=== PATIENT | female | born 1940 | race Caucasian/White ===

== ENCOUNTER 2019-05-21 13:47 | Emergency (ER) | payer OTHER, SELFPAY ==
--- NOTE | ~2019-05-21 | CT_ITS ---
EXAMINATION: CT brain wo con EXAM DATE: 05/21/2019 15:23 INDICATION: Fall, head injury. Forehead injury. TECHNIQUE: Spiral CT of the head was performed without contrast. Axial, coronal and sagittal images were reviewed. The dose-length product (DLP) for this examination was 605.33 mGy-cm. The exposure w as tailored according to patient size, and iterative reconstruction (ASIR) was used as additional dos e reduction technique. There is no prior study for comparison. FINDINGS: There is no acute intraparenchymal hemorrhage. No evidence of intraparenchymal brain mass lesion. No evidence of acute infarction. Please note that initial head CT has limited sensitivity f or small or acute infarctions. There is mild periventricular and subcortical hypodensity, nonspecific but probably related to small vessel ischemic disease. There is moderate prominence of the sulci a nd ventricles related to cerebral atrophy. There is intracranial carotid arteriosclerosis. There a re no extra-axial collections. There is no mass effect or midline shift. Patient has had bilateral ocular lens surgery. Small right frontal scalp contusion. The visualized sinuses and mastoid air miki ls are well aerated. IMPRESSION: 1. No acute intracranial findings. 2. Chronic age related findings. 3. Small right frontal scalp contusion. Reviewed, dictated and finalized at location A. 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
--- NOTE | ~2019-05-21 | XR_ITS ---
EXAMINATION: XR knee LT 3V EXAM DATE: 05/21/2019 15:27 INDICATION: Fracture. TECHNIQUE: 3 projections of the left knee. There is no prior study for comparison. FINDINGS: There is acute comminuted left distal femoral metaphyseal fracture extending into the knee joint with near complete posterior displacement of the knee with respect to the femoral shaft. Verti jean component appears to extend right between the femoral condyles into the knee joint. Closed, post Mediport fracture. Overlying soft tissue swelling. Joint hemarthrosis. No definite tibial or fibular or patellar fractures. IMPRESSION: Acute displaced comminuted distal left femoral fracture into the joint. Reviewed, dictated and finalized at location A. LEAD IMPRESSION: Acute displaced comminuted distal left femoral fracture into the j oint.
[2019-05-21 13:59] VITALS: BP 138/94; PULSE 84; RESP 18; TEMP 36.3; O2SAT 96
[2019-05-21] MEDS: HYDROMORPHONE HCL 1 MG/ML INJ IV PUSH ×2 (15:05→18:11)
[2019-05-21] MEDS: ONDANSETRON INJ 4 MG/2 ML VIAL IV PUSH (15:05)
[2019-05-21 15:08] VITALS: BP 126/92; PULSE 124; RESP 20; O2SAT 100
--- NOTE | 2019-05-21 16:23 | ED.FALL ---
HPI - Fall General Chief Complaint: Fall <Geovanna Flores PA-C - Last Filed: 05/21/19 16:43> Stated Complaint: fall/knee pain <Geovanna Flores PA-C - Last Filed: 05/21/19 16:43> Time Seen by Provider: 05/21/19 14:45 <Geovanna Flores PA-C - Last Filed: 05/21/19 16:43> Source: patient <DAV Fletcher Last Filed: 05/21/19 16:43> Mode of arrival: EMS <DAV Fletcher Last Filed: 05/21/19 16:43> Limitations: no limitations <Geovanna Flores PA-C - Last Filed: 05/21/19 16:43> History of Present Illness HPI Narrative: This is a 79-year-old female that presents the emergency department via EMS for left knee pain after an injury just prior to arrival. Reports she was walking out into her garage and tripped on the last step. Reports landing on her left knee. Also reports hitting her head on the refrigerator. Reports since she has had increasing pain and swelling in the left knee. Also reports a superficial laceration to the knee. Denies hitting her head, loss of consciousness, other injuries, prodromal symptoms, weakness, or numbness. <Geovanna Flores PA-C - Last Filed: 05/21/19 16:43> Related Data Home Medications: Home Medications Medication Instructions Recorded Confirmed amlodipine 5 mg tablet 5 mg PO DAILY tablet 01/18/19 carvedilol 25 mg tablet 25 mg PO BID tablet 01/18/19 furosemide 20 mg tablet 20 mg PO DAILY tablet 01/18/19 hydrochlorothiazide 25 mg tablet 25 mg PO DAILY tablet 01/18/19 losartan 100 mg tablet 100 mg PO DAILY tablet 01/18/19 lovastatin 10 mg tablet 10 mg PO DAILY tablet 01/18/19 potassium chloride 20 mEq 20 meq PO DAILY tablet 01/18/19 tablet,extended release(part/cryst) warfarin 2 mg tablet 2 mg PO DAILY tablet 01/18/19 cholecalciferol (vitamin D3) 1,000 unit PO DAILY 05/21/19 [Vitamin D3] metformin 1,000 mg PO HS 05/21/19 semaglutide [Ozempic] 0.5 mg SUBCUT WEEKLY 05/21/19 zolpidem 5 mg PO HS PRN 05/21/19 <Geovanna Flores PA-C - Last Filed: 05/21/19 16:43> Allergies/Adverse Reactions: Allergies Allergy/AdvReac Type Severity Reaction Status Date / Time atorvastatin AdvReac Mild Muscle Pain Verified 05/21/19 14:43 <Geovanna Flores PA-C - Last Filed: 05/21/19 16:43> Review of Systems Review of Systems: Narrative: CONSTITUTIONAL: Denies fever EYES: Denies visual changes GASTROINTESTINAL: Denies vomiting MUSCULOSKELETAL: Reports joint pain, and myalgia. NEUROLOGIC: Denies numbness, or weakness. <Geovanna Flores PA-C - Last Filed: 05/21/19 16:43> All systems reviewed & are unremarkable except as noted in HPI and below <Geovanna Flores PA-C - Last Filed: 05/21/19 16:43> [facility] Past Medical History Medical History: Medical History (Updated 05/21/19 @ 16:41 by Geovanna Flores PA-C) Chronic atrial fibrillation Gastro-esophageal reflux disease without esophagitis Generalized anxiety disorder Hypertensive heart disease without heart failure Mixed hyperlipidemia Subclinical hypothyroidism Type 2 diabetes mellitus without complications <Geovanna Flores PA-C - Last Filed: 05/21/19 16:43> Social History Social History: Social History Smoking status: Never smoker Second hand tobacco smoke exposure: No Alcohol intake: current Gender identity (if verbalized by the patient): Female <Geovanna Flores PA-C - Last Filed: 05/21/19 16:43> Exam Narrative: Exam Narrative: GENERAL: Well-appearing, obese, and in mild acute distress due to pain HEAD: Normocephalic, atraumatic. EYES: PERRLA and EOMI. ENT: Nares clear, no rhinorrhea or epistaxis. Mucous membranes moist. Oropharynx without tonsillar hypertrophy exudate or other lesions. Bilateral TMs pearly wilde non-bulging NECK: Supple. No adenopathy or masses. No midline spinal tenderness CHEST: Clear to auscultation. No respiratory distress. No wheezes rales or rhonchi HEART: Regular
[2019-05-21 16:53] VITALS: BP 118/62; PULSE 102; RESP 18; O2SAT 95
[2019-05-21] MEDS: TETANUS,DIPHTHERIA,AC PERTUSSIS ADULT (0.5 ML) BOOSTRIX IM (17:01)
[2019-05-21 17:04] VITALS: BP 119/90; PULSE 94; RESP 16; O2SAT 96
--- NOTE | 2019-05-21 18:24 | PC.NURSE ---
[facility] here to transport patient to [facility].
== END 2019-05-21 18:39 | disposition short-term general hospital (02) ==
LOC: ANHED 16:48
PROVIDERS: Emergency Provider Emergency Medicine; PCP Internal Medicine
DX: S79.192A Other physeal fracture of lower end of left femur, initial encounter for closed fracture (principal); S00.03XA Contusion of scalp, initial encounter; Z23 Encounter for immunization; I48.20 Chronic atrial fibrillation, unspecified; Z79.01 Long term (current) use of anticoagulants; I11.9 Hypertensive heart disease without heart failure; K21.9 Gastro-esophageal reflux disease without esophagitis; E78.2 Mixed hyperlipidemia; F41.1 Generalized anxiety disorder; E11.9 Type 2 diabetes mellitus without complications; Z79.84 Long term (current) use of oral hypoglycemic drugs; W01.198A Fall on same level from slipping, tripping and stumbling with subsequent striking against other object, initial encounter
CPT/HCPCS: 70450; 73562; 90471; 90715; 96374; 96375; 96376; 99285; J1170; J2405

== ENCOUNTER 2019-05-29 10:52 | Emergency (ER) | payer OTHER, SELFPAY ==
[2019-05-29] VITALS (9 sets, daily range): BP systolic 91–133; BP diastolic 65–103; PULSE 111–132; RESP 19–28; TEMP 36.8–36.9; O2SAT 91–99
--- NOTE | ~2019-05-29 | CT_ITS ---
EXAMINATION: CTA chest PE protocol DATE: 05/29/2019 12:15 INDICATION: Chest pain. Shortness of breath. TECHNIQUE: Computed tomography angiography (CTA) of the chest was performed with 100 mL Omnipaque-350 intravenous contrast timed to evaluate the pulmonary arteries. Coronal maximum intensity projection 3D-reconstructions were created by the technologist. Automated exposure control and iterative reconst ruction technique were employed. Exam dose: 834.50 mGy-cm total exam DLP. COMPARISON: None. FINDINGS: There is diagnostic contrast enhancement of the pulmonary arteries. Intraluminal thrombus i s identified to the greatest extent in the right upper, middle and right lower lobes, with mild left lower lobe involvement is well. Cardiomegaly. Coronary artery calcification. No evidence of thoracic aortic aneurysm. Trace pericardial effusion. No pleural effusion. No hilar or mediastinal mass lesion or lymphadenopathy. Calcified pulmonary granulomas are noted, consistent with old pulmonary granulomatous disease. No pul monary infiltrate or consolidation. Mild discoid atelectasis or scarring in the lower lobes. Left renal calculi. Moderate anterior wedge compression fracture deformity of L1. Diffuse osteopenia. Degenerative changes of the thoracic spine. IMPRESSION: Bilateral pulmonary embolism, right greater than left Dr. Nick telephoned the emergency room physician Dr. Fletcher with the report of bilateral pulmonary em bolism on 05/29/2019 at 1303 hours Reviewed, dictated and finalized at Location A. Reviewed, dictated and finalized at location A. IMPRESSION: Bilateral pulmonary embolism, right greater than left Dr. Nick telephoned the emergency room physician Dr. Fletcher with the report of bilateral pulmonary embolism on 05/29/2019 at 1303 hours
--- NOTE | 2019-05-29 11:03 | ECG_ITS ---
Measurements Intervals [place] Rate: 108 P: MS: 0 QRS: 64 QRSD: 112 T: 0 QT: 370 QTc: 498 Interpretive Statements ATRIAL FIBRILLATION WITH RAPID VENTRICULAR RESPONSE LOW QRS VOLTAGE IN PRECORDIAL LEADS INTRAVENTRICULAR CONDUCTION DELAY BORDERLINE ST-T WAVE ABNORMALITY- DIFFUSE LEADS BASELINE ARTIFACT- I, III, AVR, AVL, V1, V3, V5-V6 ABNORMAL ECG Electronically Signed On 05-29-2019 17:31:30 CDT by Kali Webber D.O.
--- NOTE | 2019-05-29 11:11 | ED.SOB ---
HPI - SOB/Dyspnea General Chief Complaint: Chest Pain <Veronica Fletcher MD - Last Filed: 06/01/19 12:06> Stated Complaint: sob/chest pressure <Veronica Feltcher MD - Last Filed: 06/01/19 12:06> Time Seen by Provider: 05/29/19 11:11 <Veronica Fletcher MD - Last Filed: 06/01/19 12:06> Source: patient and family () <Veronica Fletcher MD - Last Filed: 06/01/19 12:06> Mode of arrival: EMS <Veronica Fletcher MD - Last Filed: 06/01/19 12:06> Limitations: no limitations <Veronica Fletcher MD - Last Filed: 06/01/19 12:06> History of Present Illness HPI Narrative: A 79 y/o female presents to the ED, via EMS, with c/o SOB and diffuse chest pressure. Per , pt fractured her left knee 8 days ago and had surgery at [place] on Thursday (4 days ago). Pt was d/c from [place] on oxygen and was transferred to a rehab facility yesterday. Pt is not normally on oxygen and she denies a PMHx of COPD and pneumonia. Pt started to experience SOB and diffuse chest pressure a couple days ago. Pt describes the chest pressure as a heaviness. Pt also states that her ABD feels hard but notes that she had a BM this morning. She denies a cough, fever, rhinorrhea, and a PMHx of A-fib and stents. Pt is on Warfarin for A-fib. <Veronica Fletcher MD - Last Filed: 06/01/19 12:06> Onset (ago): day(s) (couple) <Veronica Fletcher MD - Last Filed: 06/01/19 12:06> Related Data Home Medications: Home Medications Medication Instructions Recorded Confirmed amlodipine 5 mg tablet 5 mg PO DAILY tablet 01/18/19 carvedilol 25 mg tablet 25 mg PO BID tablet 01/18/19 furosemide 20 mg tablet 20 mg PO DAILY tablet 01/18/19 hydrochlorothiazide 25 mg tablet 25 mg PO DAILY tablet 01/18/19 losartan 100 mg tablet 100 mg PO DAILY tablet 01/18/19 lovastatin 10 mg tablet 10 mg PO DAILY tablet 01/18/19 potassium chloride 20 mEq 20 meq PO DAILY tablet 01/18/19 tablet,extended release(part/cryst) warfarin 2 mg tablet 2 mg PO DAILY tablet 01/18/19 cholecalciferol (vitamin D3) 1,000 unit PO DAILY 05/21/19 [Vitamin D3] metformin 1,000 mg PO HS 05/21/19 semaglutide [Ozempic] 0.5 mg SUBCUT WEEKLY 05/21/19 zolpidem 5 mg PO HS PRN 05/21/19 <Veronica Fletcher MD - Last Filed: 06/01/19 12:06> Allergies/Adverse Reactions: Allergies Allergy/AdvReac Type Severity Reaction Status Date / Time MILI Inhibitors Allergy Unknown Verified 05/29/19 11:20 citalopram Allergy Unknown Verified 05/29/19 11:20 lisinopril Allergy Unknown Verified 05/29/19 11:20 atorvastatin AdvReac Mild Muscle Pain Verified 05/21/19 14:43 <Veronica Fletcher MD - Last Filed: 06/01/19 12:06> Review of Systems Review of Systems: All systems reviewed & are unremarkable except as noted in HPI and below <Veronica Fletcher MD - Last Filed: 06/01/19 12:06> Constitutional: Constitutional: Denies fever(s) <Veronica Fletcher MD - Last Filed: 06/01/19 12:06> ENT: Comments: Denies: rhinorrhea <Veronica Fletcher MD - Last Filed: 06/01/19 12:06> Cardiovascular: Comments: Reports: diffuse chest pressure <Veronica Fletcher MD - Last Filed: 06/01/19 12:06> Respiratory: Respiratory: Denies cough and Reports dyspnea <Veronica Fletcher MD - Last Filed: 06/01/19 12:06> [facility] Past Medical History Medical History: Medical History Anxiety Chronic atrial fibrillation Gastro-esophageal reflux disease without esophagitis Generalized anxiety disorder Hx of radiation therapy Hypertensive heart disease without heart failure Mixed hyperlipidemia Subclinical hypothyroidism Type 2 diabetes mellitus without complications Zenkers diverticulum <Veronica Fletcher MD - Last Filed: 06/01/19 12:06> Surgical History Surgical History: Surgical History H/O: hysterectomy History of cholecystectomy History of tonsillectomy <Veronica Fletcher,
[2019-05-29 11:12] LABS: Glucose Point of Care 304 (65-105)
[2019-05-29] MEDS: LACTATED RINGERS 1,000 ML 999 ML IV CONT ×2 (11:24→14:51)
[2019-05-29 11:44] LABS: Alveolar/Arterial O2 Gradient 164.4 mmHg; Base Excess ABG -3.6 mEq/l (+/-2.0); Carboxyhemoglobin 0.3 % THb (0-2.0); Fractional Inspired Oxygen 36 %; HCO3 ABG 19.4 mEq/l (22.0-26.0); Methemoglobin ABG 0.2 %THb (0-1.5); Oxygen Content ABG 11.6 %vol (16.0-22.0); Oxygen Saturation ABG 92.8 % (95.0-100.0); Oxyhemoglobin 90.2 % THb (90.0-100.0); PCO2 ABG 27.8 mmHg (35.0-45.0); PO2 FiO2 Ratio Arterial Blood 1.67 %; Reduced Hemoglobin 9.3 %THb (0-5.0); Total Hemoglobin 9.1 g/dL (12.0-18.0); pH ABG 7.461 (7.350-7.450)
[2019-05-29 11:45] LABS: Device NASAL CANNULA; Modified Allen's Test Pass; Site Drawn RIGHT RADIAL
[2019-05-29 11:56] LABS: Basophils Percent Auto 0.3 % (0.2-1.2); Eosinophils Percent Auto 0.1 % (0-4.4); Hematocrit 26.5 % (37.0-47.0); Hemoglobin 8.1 g/dL (12.0-15.0); Immature Granulocyte Absolute 0.06 K/mm3 (0.00-0.031); Immature Granulocyte Percent A 0.8 % (0-0.5); Lymphocytes Absolute Auto 0.79 K/mm3 (0.9-3.2); Lymphocytes Percent Auto 10.6 % (18.3-44.2); Mean Corpuscular HGB Conc 30.6 g/dl (32-36); Mean Corpuscular Hemoglobin 31.4 pg (26-34); Mean Corpuscular Volume 102.7 fl (80-100); Mean Platelet Volume 10.1 fl (7.4-10.4); Monocytes Absolute Auto 0.4 K/mm3 (0.1-0.6); Monocytes Percent Auto 5.1 % (2.6-8.5); Neutrophils Absolute Auto 6.2 K/mm3 (1.3-6.7); Neutrophils Percent Auto 83.1 % (45.5-73.1); Nucleated Red Blood Cells Absolute Auto 0.1 K/mm3 (0.0-0.012); Nucleated Red Blood Cells Perc 0.9 % (0.0-0.2); Platelet Count Result 231 k/mm3 (150-375); Red Blood Count 2.58 M/mm3 (4.2-5.4); Red Cell Distribution Width 15.6 % (11.5-14.5); White Blood Count 7.4 K/mm3 (4.5-10.0)
[2019-05-29 12:09] LABS: Estimated Glomerular Filt Rate > 60
[2019-05-29 12:09] LABS: Alanine Aminotransferase 47 U/L (4-35); Albumin Level 2.8 g/dL (3.5-5.1); Alkaline Phosphatase 138 U/L (38-126); Aspartate Amino Transferase 93 U/L (14-36); Bilirubin,Total 1.5 mg/dL (0.2-1.3); Blood Urea Nitrogen 23 mg/dL (7-17); Calcium 7.9 mg/dL (8.4-10.2); Carbon Dioxide 22 mmol/L (22-30); Chloride 100 mmol/L (98-107); Estimated Glomerular Filt Rate > 60; Glucose 278 mg/dL (65-105); Magnesium 1.6 mg/dL (1.6-2.3); Potassium 4.9 mmol/L (3.4-5.0); Sodium 132 mmol/L (137-145)
[2019-05-29 12:11] LABS: Lactic Acid Reflex 4.7 mmol/L (0.7-2.1)
[2019-05-29 12:17] LABS: INR 1.4; Prothrombin Time 16.5 Seconds (11.1-14.7)
[2019-05-29 12:18] LABS: Partial Thromboplastin Time 25.1 SECONDS (22.3-36.8)
[2019-05-29 12:22] LABS: NT Pro B Type Natriuretic Pept 5830 PG/ML (5-100); Troponin I 0.036 ng/mL (0.000-0.034)
[2019-05-29] MEDS: HEPARIN SODIUM 1,000 UNITS/ML VIAL 8000 UNITS IV PUSH (13:44)
[2019-05-29] MEDS: HEPARIN SOD/D5W 100 UNITS/ML 25,000 UNITS/250 ML BAG 19 UNITS (13:46)
[2019-05-29 14:38] LABS: Troponin I 0.058 ng/mL (0.000-0.034)
[2019-05-29 14:53] LABS: Reflex Lactic Acid Yes or No Add Lactic
--- NOTE | 2019-05-29 14:56 | PC.NURSE ---
Computer in Pt. room 8 would not scan medications. dock clerk and IT notified. Documented meds manually with RN witness
--- NOTE | 2019-05-29 15:30 | PC.NURSE ---
Caroline from [facility] called for triage information to place Pt. Caroline will call back with a room number when ready.
[2019-05-29] MEDS: SODIUM CHLORIDE 0.9% IV 1,000 ML 999 ML IV CONT (17:06)
--- NOTE | 2019-05-29 19:31 | PC.NURSE ---
assumed care of pt at this time. report from ARMANI Bear
--- NOTE | 2019-05-29 19:34 | PC.NURSE ---
Called [facility] to transport to [facility]..ETA [id number]
[2019-05-29 20:01] LABS: Glucose Point of Care 196 (65-105)
== END 2019-05-29 20:20 | disposition short-term general hospital (02) ==
PROVIDERS: General Practice; Emergency Provider Emergency Medicine; PCP Internal Medicine
DX: T81.718A Complication of other artery following a procedure, not elsewhere classified, initial encounter (principal); I26.99 Other pulmonary embolism without acute cor pulmonale; I48.20 Chronic atrial fibrillation, unspecified; Z79.01 Long term (current) use of anticoagulants; R79.89 Other specified abnormal findings of blood chemistry; E87.2 Acidosis; K21.9 Gastro-esophageal reflux disease without esophagitis; E78.2 Mixed hyperlipidemia; E11.9 Type 2 diabetes mellitus without complications; Z79.84 Long term (current) use of oral hypoglycemic drugs; R94.31 Abnormal electrocardiogram [ECG] [EKG]
CPT/HCPCS: 36415; 36600; 71275; 80053; 82375; 82805; 82948; 83050; 83605; 83735; 83880; 84484; 85025; 85610; 85730; 87040; 93005; 96361; 96365; 96366; 96368; 96375; 96376; 99291; J0131; J1644; J7030; J7120; Q9967

== ENCOUNTER 2019-08-09 12:52 | Outpatient (CLI) | payer OTHER, SELFPAY ==
--- NOTE | ~2019-08-09 | CT_ITS ---
EXAMINATION: CTA chest PE protocol DATE: 08/09/2019 14:58 CDT INDICATION: Pulmonary embolism. Acute cor pulmonale. TECHNIQUE: Computed tomographic angiography (CTA) of the chest was performed with 100 mL Omnipaque-35 0 intravenous contrast. The dose-length product was 503.63 mGy-cm. Maximum intensity projection 3D-re constructions of the aorta and other arteries were constructed by the technologist on a separate work station. Automated exposure control and iterative reconstruction technique were employed. COMPARISON: CT dated 05/29/2019 FINDINGS: Study is technically adequate there is pulmonary embolism involving the lower lobe segmenta l and subsegmental pulmonary arteries bilaterally with significantly decreased thrombus burden compar ed with prior examination. Cardiomegaly. Small pericardial effusion. No significant pleural effusion. The pulmonary arteries are enlarged, consistent with pulmonary hypertension. No thoracic lymphadenop athy. There is a densely calcified granuloma in the right upper lobe measuring 1.2 cm. No focal airsp edwin consolidation. There are nonobstructing left renal stones. There is a 2.1 cm left adrenal mass, c onsistent with adenoma. There is a superior endplate compression fracture of L1, likely chronic. IMPRESSION: 1. Bilateral lower lobe pulmonary embolism with significantly decreased thrombus burden compared with prior examination. 2: Enlarged pulmonary arteries, consistent with pulmonary arterial hypertension. 3: Small pericardial effusion. 4: Cardiomegaly. 5: Nonobstructing left nephrolithiasis. Reviewed, dictated and finalized at location A. IMPRESSION: 1. Bilateral lower lobe pulmonary embolism with significantly decreased thrombu s burden compared with prior examination. 2: Enlarged pulmonary arteries, consistent with pulmonary arterial hypertensio n. 3: Small pericardial effusion. 4: Cardiomegaly. 5: Nonobstructing left nephrolithiasis.
--- NOTE | ~2019-08-09 | US_ITS ---
EXAMINATION: US venous doppler [facility] EXAM DATE: 08/09/2019 18:01 INDICATION: Left leg pain. TECHNIQUE: Multiple grayscale, color flow and Doppler images of the left lower extremity deep venous system were obtained and reviewed. There is no prior study for comparison. FINDINGS: The left common femoral, femoral and profunda veins demonstrate normal color flow, respirat ory variation, augmentation and compressibility. Compressibility, color flow confirmed within the le ft popliteal, posterior tibial, peroneal, and greater saphenous veins. IMPRESSION: 1. No left lower extremity deep venous thrombosis. Reviewed, dictated and finalized at location A.
[2019-08-09 13:27] LABS: Estimated Glomerular Filt Rate > 60
== END 2019-08-09 12:53 | disposition home or self-care (01) ==
PROVIDERS: PCP Internal Medicine; Visit Provider Internal Medicine
DX: I26.99 Other pulmonary embolism without acute cor pulmonale (principal); N20.0 Calculus of kidney; I51.7 Cardiomegaly; I31.3 Pericardial effusion (noninflammatory)
CPT/HCPCS: 36415; 71275; 93971; Q9967

== ENCOUNTER → 2020-09-04 12:30 | Outpatient (CLI) | payer OTHER, SELFPAY ==
--- NOTE | ~2020-09-04 | XR_ITS ---
EXAMINATION: XR ribs LT 2V DATE: 09/04/2020 14:18 INDICATION: Left rib pain. TECHNIQUE: A frontal view of the chest and 3 views of the left ribs were obtained. COMPARISON: Chest CT 08/09/2019 FINDINGS: Calcified pulmonary nodules are consistent with old granulomatous disease. No pleural effus ion or pneumothorax. Cardiomegaly is noted. IMPRESSION: 1. No rib fracture. 2. Cardiomegaly. Reviewed, dictated and finalized at location A.
== END ==
PROVIDERS: PCP Physician Assistant; Visit Provider Physician Assistant
DX: R07.81 Pleurodynia (principal); I51.7 Cardiomegaly
CPT/HCPCS: 71100

== ENCOUNTER → 2020-11-20 14:22 | Outpatient (CLI) | payer OTHER, SELFPAY ==
--- NOTE | ~2020-11-20 | US_ITS ---
US soft tissue head and neck INDICATION: Thyroid nodules TECHNIQUE: Real-time sonographic images of the thyroid gland were obtained. COMPARISON: No prior studies for comparison. FINDINGS: The right thyroid lobe measures 4 x 1.8 x 1.7 cm. The left thyroid lobe measures 4.4 x 2 x 1.9 cm. There are multiple bilateral thyroid nodules. Largest in the right lobe measures 1.4 x 1 x 1 cm. This mass is solid, predominantly hypoechoic, wider than tall, ill-defined with internal calcifi cations, TR 5. The largest dominant mass in the left lobe measures 2.5 x 1.9 x 1.8 cm and is mixed so lid and cystic, isoechoic, wider than tall, smoothly marginated with microcalcifications, TR 4. IMPRESSION: 1. Multinodular goiter. Recommend ultrasound-guided biopsy of dominant bilateral thyroid masses desc ribed above. Reviewed, dictated and finalized at location A. IMPRESSION: 1. Multinodular goiter. Recommend ultrasound-guided biopsy of dominant bilater al thyroid masses described above.
== END ==
PROVIDERS: PCP Physician Assistant; Visit Provider Physician Assistant
DX: E04.2 Nontoxic multinodular goiter (principal)
CPT/HCPCS: 76536

== ENCOUNTER 2021-03-21 12:04 | Outpatient (CLI) | payer OTHER, SELFPAY ==
--- NOTE | ~2021-03-21 | CT_ITS ---
EXAMINATION: CT abdomen pelvis wo con DATE: 03/21/2021 12:52 INDICATION: Nephrolithiasis with flank pain and hematuria TECHNIQUE: Computed tomography (CT) of the abdomen and pelvis was performed without intravenous contr ast. Automated exposure control and iterative reconstruction technique were employed. The dose-length product was 367.56 mGy-cm. COMPARISON: None FINDINGS: Discoid atelectasis in the posterior lingula. Small fat-containing Bochdalek hernia at the right post erior lung base. Mild cardiomegaly. Atherosclerotic coronary artery calcific location. Aortic valve a nd mitral annular calcifications. No pericardial or pleural effusion. The common bile duct is dilated to 11 mm which may be related to prior cholecystectomy with no visualized gallbladder at the gallbla dder fossa. Liver, spleen, pancreas and right adrenal gland are normal. 1.6 cm left adrenal nodule. B ilateral renal cysts, the larger on the right measuring 2.9 cm. Bilateral nephrolithiasis with 1 mm a nd 3 mm stones in the left kidney and 1 mm, 2 mm and 8 mm stones stones at the right kidney. No urete ral stones or hydronephrosis. Bladder is normal. The uterus is not identified and has likely been ashlie gically resected. There is moderate colonic diverticulosis with a sigmoid predominance. There is no adjacent inflammatory change to suggest diverticulitis. No bowel obstruction. The appendix is not vis ualized. No pericecal inflammatory change to suggest acute appendicitis. No free intraperitoneal gas or fluid. No pathologically enlarged abdominal or pelvic lymphadenopathy. There is calcified atherosc lerosis of the aorta and many of the other arteries. Chronic L1 compression fracture. Severe lumbar a nd lower thoracic spondylosis. IMPRESSION: 1. Bilateral nonobstructing nephrolithiasis. Reviewed, dictated and finalized at location B. 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
[2021-03-21 13:32] LABS: Basophils Percent Auto 0.5 % (0.2-1.2); Eosinophils Percent Auto 0.2 % (0-4.4); Hematocrit 36.7 % (37.0-47.0); Hemoglobin 11.7 g/dL (12.0-15.0); Immature Granulocyte Absolute 0.01 K/mm3 (0.00-0.031); Immature Granulocyte Percent A 0.2 % (0-0.5); Lymphocytes Absolute Auto 0.47 K/mm3 (0.9-3.2); Mean Corpuscular HGB Conc 31.9 g/dl (32-36); Mean Corpuscular Hemoglobin 27.5 pg (26-34); Mean Corpuscular Volume 86.4 fl (80-100); Mean Platelet Volume 10.1 fl (7.4-10.4); Monocytes Absolute Auto 0.3 K/mm3 (0.1-0.6); Monocytes Percent Auto 6.8 % (2.6-8.5); Neutrophils Absolute Auto 3.5 K/mm3 (1.3-6.7); Neutrophils Percent Auto 81.3 % (45.5-73.1); Platelet Count Result 272 k/mm3 (150-375); Red Blood Count 4.25 M/mm3 (4.2-5.4); Red Cell Distribution Width 15.9 % (11.5-14.5); White Blood Count 4.3 K/mm3 (4.5-10.0)
[2021-03-21 13:36] LABS: Alanine Aminotransferase 16 U/L (4-35); Albumin Level 4.3 g/dL (3.5-5.1); Alkaline Phosphatase 92 U/L (38-126); Anion Gap 12 mmol/L (8-16); Aspartate Amino Transferase 22 U/L (14-36); Bilirubin,Total 0.5 mg/dL (0.2-1.3); Blood Urea Nitrogen 17 mg/dL (7-17); Calcium 9.8 mg/dL (8.4-10.2); Carbon Dioxide 22 mmol/L (22-30); Chloride 98 mmol/L (98-107); Estimated Glomerular Filt Rate 53; Glucose 178 mg/dL (65-110); Potassium 4.4 mmol/L (3.4-5.0); Sodium 132 mmol/L (137-145)
[2021-03-21 13:39] LABS: Add Urine Microscopic? YES; Appearance Urine Clear (Clear); Bilirubin Urine Negative (Negative); Blood Urine 3+ (Negative); Color Urine Yellow (Yellow); Glucose Urine UA Negative (Negative); Hyaline Casts Urine 15-19 /lpf; Ketones Urine Negative (Negative); Leukocyte Esterase Ur Trace LEU/UL (NEGATIVE); Mucus Urine Rare /lpf; Nitrate Urine Negative (Negative); Protein Urine 2+ mg/dL (Negative); RBC Urine >75 /hpf (0-2); Squamous Epithelial Cell Urine Rare /hpf (Few); Urobilinogen Urine Negative mg/dL (<2.0); WBC Urine 31-50 /hpf (0-3)
== END 2021-03-21 12:05 | disposition home or self-care (01) ==
PROVIDERS: PCP Physician Assistant; Visit Provider Physician Assistant
DX: N30.01 Acute cystitis with hematuria (principal); R10.9 Unspecified abdominal pain; Z87.442 Personal history of urinary calculi; N20.0 Calculus of kidney
CPT/HCPCS: 36415; 74176; 80053; 81001; 85025

== ENCOUNTER 2021-05-31 11:43 | Outpatient (CLI) | payer OTHER, SELFPAY ==
[2021-05-31 12:10] LABS: Basophils Percent Auto 0.2 % (0.2-1.2); Hematocrit 28.4 % (37.0-47.0); Hemoglobin 8.6 g/dL (12.0-15.0); Immature Granulocyte Absolute 0.03 K/mm3 (0.00-0.031); Immature Granulocyte Percent A 0.4 % (0-0.5); Lymphocytes Absolute Auto 1.34 K/mm3 (0.9-3.2); Lymphocytes Percent Auto 16.7 % (18.3-44.2); Mean Corpuscular HGB Conc 30.3 g/dl (32-36); Mean Corpuscular Hemoglobin 26.4 pg (26-34); Mean Corpuscular Volume 87.1 fl (80-100); Mean Platelet Volume 9.6 fl (7.4-10.4); Monocytes Absolute Auto 0.4 K/mm3 (0.1-0.6); Monocytes Percent Auto 5.2 % (2.6-8.5); Neutrophils Absolute Auto 6.2 K/mm3 (1.3-6.7); Neutrophils Percent Auto 77.5 % (45.5-73.1); Platelet Count Result 323 k/mm3 (150-375); Red Blood Count 3.26 M/mm3 (4.2-5.4); Red Cell Distribution Width 17.1 % (11.5-14.5)
[2021-05-31 12:27] LABS: Alanine Aminotransferase 27 U/L (4-35); Albumin Level 3.8 g/dL (3.5-5.1); Alkaline Phosphatase 104 U/L (38-126); Anion Gap 8 mmol/L (8-16); Aspartate Amino Transferase 32 U/L (14-36); Bilirubin,Total 0.5 mg/dL (0.2-1.3); Blood Urea Nitrogen 15 mg/dL (7-17); Calcium 9.2 mg/dL (8.4-10.2); Carbon Dioxide 26 mmol/L (22-30); Chloride 104 mmol/L (98-107); Estimated Glomerular Filt Rate > 60; Glucose 165 mg/dL (65-110); Magnesium 1.6 mg/dL (1.6-2.3); Potassium 3.7 mmol/L (3.4-5.0); Sodium 138 mmol/L (137-145)
== END 2021-05-31 11:44 | disposition home or self-care (01) ==
LOC: ANHLAB 11:46
PROVIDERS: PCP Physician Assistant; Visit Provider Physician Assistant
DX: D50.0 Iron deficiency anemia secondary to blood loss (chronic) (principal); I10 Essential (primary) hypertension; E03.9 Hypothyroidism, unspecified
CPT/HCPCS: 36415; 80053; 83735; 84443; 85025

== ENCOUNTER 2021-06-02 08:19 | Emergency (ER) | payer OTHER, SELFPAY ==
[2021-06-02 08:25] VITALS: BP 183/99; PULSE 93; RESP 17; TEMP 36.6; O2SAT 97
[2021-06-02 08:40] LABS: Basophils Percent Auto 0.3 % (0.2-1.2); Eosinophils Percent Auto 0.3 % (0-4.4); Hematocrit 30.4 % (37.0-47.0); Hemoglobin 9.3 g/dL (12.0-15.0); Immature Granulocyte Absolute 0.02 K/mm3 (0.00-0.031); Immature Granulocyte Percent A 0.3 % (0-0.5); Lymphocytes Absolute Auto 0.98 K/mm3 (0.9-3.2); Lymphocytes Percent Auto 14.4 % (18.3-44.2); Mean Corpuscular HGB Conc 30.6 g/dl (32-36); Mean Corpuscular Hemoglobin 26.4 pg (26-34); Mean Corpuscular Volume 86.4 fl (80-100); Mean Platelet Volume 9.5 fl (7.4-10.4); Monocytes Absolute Auto 0.4 K/mm3 (0.1-0.6); Monocytes Percent Auto 6.2 % (2.6-8.5); Neutrophils Absolute Auto 5.4 K/mm3 (1.3-6.7); Neutrophils Percent Auto 78.5 % (45.5-73.1); Platelet Count Result 384 k/mm3 (150-375); Red Blood Count 3.52 M/mm3 (4.2-5.4); Red Cell Distribution Width 17.1 % (11.5-14.5); White Blood Count 6.8 K/mm3 (4.5-10.0)
[2021-06-02 08:49] LABS: INR 1.3; Prothrombin Time 15.3 Seconds (11.1-14.7)
[2021-06-02 08:54] LABS: Alanine Aminotransferase 23 U/L (4-35); Albumin Level 3.9 g/dL (3.5-5.1); Alkaline Phosphatase 95 U/L (38-126); Anion Gap 10 mmol/L (8-16); Aspartate Amino Transferase 33 U/L (14-36); Bilirubin,Total 0.6 mg/dL (0.2-1.3); Blood Urea Nitrogen 16 mg/dL (7-17); Calcium 8.9 mg/dL (8.4-10.2); Carbon Dioxide 25 mmol/L (22-30); Chloride 101 mmol/L (98-107); Estimated CRCL calculation 86 ml/min; Estimated Glomerular Filt Rate > 60; Glucose 166 mg/dL (65-110); Potassium 3.1 mmol/L (3.4-5.0); Sodium 136 mmol/L (137-145)
--- NOTE | 2021-06-02 09:04 | ED.GENADULT ---
HPI - General Adult General Chief complaint: Recheck/Abnormal Lab/Rx Stated complaint: abnormal blood work Source: patient Mode of arrival: ambulatory Limitations: no limitations History of Present Illness HPI narrative: Patient is 81 years old white female came to the emergency room with her son from home complaining of general weakness for a while, probably got worse after stopping Xanax 5 days ago. Patient denies any fever, chills, nausea, vomiting, abdominal pain, chest pain, shortness of breath, headache or urinary symptoms. History of depression, diabetes, hypertension, hyperlipidemia, hypothyroidism, atrial fibrillation on Eliquis. Status post embolectomy 5 days ago with complete recovery of stroke symptoms at that day. Patient been using Xanax as needed for years. Was told to stop it after having a stroke. Patient did not have Xanax in the last 5 days. Patient lost at least 3 family members over the last few weeks/months, have a to go today Patient did not take her medication or eat her breakfast prior to arrival to the ED today. Patient also reported not taking her regular potassium since had stroke 5 days ago. Related Data Home Medications Medication Instructions Recorded Confirmed carvedilol 25 mg tablet 25 mg PO BID tablet 01/18/19 06/26/20 apixaban 5 mg tablet 5 mg PO BID 06/28/19 06/26/20 furosemide 20 mg tablet 20 mg PO BID tablet 06/28/19 06/26/20 diltiazem HCl 120 mg 120 mg PO .hs cap 12/14/19 06/26/20 capsule,extended release 24 hr rosuvastatin 20 mg tablet 20 mg PO DAILY tablet 12/14/19 06/26/20 losartan 25 mg tablet 50 mg PO DAILY tablet 06/26/20 06/26/20 potassium chloride 20 mEq 20 meq PO BID tablet 06/26/20 06/26/20 tablet,extended release(part/cryst) Allergies Allergy/AdvReac Type Severity Reaction Status Date / Time lisinopril Allergy Severe cough Verified 06/26/20 14:04 MILI Inhibitors AdvReac Severe cough Verified 06/26/20 14:04 atorvastatin AdvReac Mild Muscle Pain Verified 06/26/20 14:04 citalopram AdvReac Mild Unknown Verified 06/26/20 14:04 Review of Systems Review of Systems: CONSTITUTIONAL: Denies fever, chills, or sweats. EYES: Denies visual changes, redness, or discharge. ENT: Denies rhinorrhea, congestion, sore throat, or otalgia. CARDIOVASCULAR: Denies chest pain, palpitations, or edema. RESPIRATORY: Denies cough or dyspnea. GASTROINTESTINAL: Denies abdominal pain, nausea, vomiting, or diarrhea. GENITOURINARY: Denies dysuria or hematuria. SKIN: Denies rash or itching. MUSCULOSKELETAL: Denies back pain, joint pain, or myalgia. NEUROLOGIC: Denies headache, numbness, or weakness. PSYCHIATRIC: Denies anxiety or depression. PMFSH Past Medical History Medical History Anxiety Chronic atrial fibrillation Chronic episodic atrial fibrillation Gastro-esophageal reflux disease without esophagitis Generalized anxiety disorder Hx of radiation therapy Hypertensive heart disease without heart failure Knee fracture Mixed hyperlipidemia Pulmonary embolus Subclinical hypothyroidism Type 2 diabetes mellitus without complications Zenkers diverticulum Surgical History Surgical History H/O: hysterectomy History of cholecystectomy History of tonsillectomy Family History Family History Father Family history of coronary artery disease Family history of cardiovascular disease Mother Family history of coronary artery disease Family history of cardiovascular disease Social History Social History Smoking status: Never smoker Second hand tobacco smoke exposure: No Alcohol intake: current Gender identity (if verbalized by the patient): Female Exam Narrative: General appearance: Well-developed, well-nourished, looks depressed, son at the bedside Skin: Pale Head: Nor
[2021-06-02] MEDS: ALPRAZolam (*CRX) 0.5 MG TABLET 1 MG PO (09:23)
[2021-06-02 09:25] VITALS: BP 162/95; PULSE 82; RESP 21; O2SAT 97
[2021-06-02] MEDS: POTASSIUM CHLORIDE 20 MEQ TABLET 40 MEQ PO (10:34)
[2021-06-02 10:45] VITALS: BP 156/100; PULSE 84; RESP 19; O2SAT 95
== END 2021-06-02 10:48 | disposition home or self-care (01) ==
PROVIDERS: Emergency Provider Emergency Medicine; PCP Physician Assistant
DX: R53.1 Weakness (principal); E87.6 Hypokalemia; F13.230 Sedative, hypnotic or anxiolytic dependence with withdrawal, uncomplicated; I48.20 Chronic atrial fibrillation, unspecified; K21.9 Gastro-esophageal reflux disease without esophagitis; I11.9 Hypertensive heart disease without heart failure; E78.2 Mixed hyperlipidemia; E11.9 Type 2 diabetes mellitus without complications; Z92.3 Personal history of irradiation; F41.1 Generalized anxiety disorder; Z86.711 Personal history of pulmonary embolism; E03.8 Other specified hypothyroidism; Z79.01 Long term (current) use of anticoagulants; Z79.84 Long term (current) use of oral hypoglycemic drugs
CPT/HCPCS: 36415; 80053; 84443; 85025; 85610; 86850; 86900; 86901; 99283; A9270

== ENCOUNTER 2021-06-06 13:47 | Outpatient (CLI) | payer OTHER, SELFPAY ==
--- NOTE | ~2021-06-06 | XR_ITS ---
XR abdomen/kub 1V 06/06/2021 14:11 Indication: Renal stones Procedure: KUB Comparison: No prior studies for comparison. Findings: Bowel gas pattern is nonobstructive. Moderate colonic fecal loading. There are punctate lef t renal stones. There are pelvic phleboliths. There is a small right renal stone. Moderate lumbar spo ndylosis. No acute osseous abnormality. Impression: 1: Bilateral nephrolithiasis. Reviewed, dictated and finalized at location A. Impression: 1: Bilateral nephrolithiasis.
== END 2021-06-06 13:48 | disposition home or self-care (01) ==
PROVIDERS: PCP Physician Assistant; Visit Provider Urology
DX: N20.0 Calculus of kidney (principal)
CPT/HCPCS: 74018

== ENCOUNTER 2022-05-12 11:22 | Emergency (ER) | payer OTHER, SELFPAY ==
--- NOTE | 2022-05-12 11:36 | ED.URI ---
HPI - URI/Sore Throat General Chief Complaint: Upper Respiratory Infection Stated Complaint: congestion Time Seen by Provider: 05/12/22 11:50 Source: patient Mode of arrival: ambulatory Limitations: no limitations History of Present Illness HPI Narrative: Nereyda is an 82-year-old female patient presenting to the clinic today with complaints of cough nasal congestion, postnasal drip, and chest congestion times 2 days. She denies any known fever or chills. States she is having a productive cough and bringing up clear to yellow phlegm. She denies any shortness of breath or chest pain. MD elicited complaint: cough and nasal congestion (Chest congestion) Related Data Home Medications Medication Instructions Recorded Confirmed carvedilol 25 mg tablet 25 mg PO BID 01/18/19 05/12/22 apixaban 5 mg tablet (Eliquis) 5 mg PO BID 06/28/19 05/12/22 furosemide 20 mg tablet 20 mg PO BID 06/28/19 05/12/22 diltiazem HCl 120 mg 120 mg PO .hs 12/14/19 05/12/22 capsule,extended release 24 hr rosuvastatin 20 mg tablet 20 mg PO DAILY 12/14/19 05/12/22 losartan 25 mg tablet 50 mg PO DAILY 06/26/20 05/12/22 calcium carbonate 200 mg calcium 600 mg PO BID 05/12/22 05/12/22 (500 mg) chewable tablet (Antacid (calcium carbonate)) cholecalciferol (vitamin D3) 25 50,000 mcg PO DAILY 05/12/22 05/12/22 mcg (1,000 unit) capsule cranberry extract 200 mg capsule 200 mg PO DAILY 05/12/22 05/12/22 fluoxetine 20 mg capsule 60 mg PO DAILY 05/12/22 05/12/22 glipizide 10 mg tablet 10 mg PO DAILY 05/12/22 05/12/22 spironolactone 25 mg tablet 25 mg PO DAILY 05/12/22 05/12/22 Allergies Allergy/AdvReac Type Severity Reaction Status Date / Time lisinopril Allergy Severe cough Verified 05/12/22 11:41 MILI Inhibitors AdvReac Severe cough Verified 05/12/22 11:41 atorvastatin AdvReac Mild Muscle Pain Verified 05/12/22 11:41 citalopram AdvReac Mild Unknown Verified 05/12/22 11:41 Review of Systems Review of Systems: Pertinent positives per HPI. Patient denies any fever, chills, rash, headache, visual changes, dizziness, cough, shortness of breath, chest pain, palpitations, nausea, vomiting, diarrhea, constipation, abdominal pain, or any urinary issues. [facility] Past Medical History Medical History Anxiety Chronic atrial fibrillation Chronic episodic atrial fibrillation Gastro-esophageal reflux disease without esophagitis Generalized anxiety disorder Hx of radiation therapy Hypertensive heart disease without heart failure Knee fracture Mixed hyperlipidemia Pulmonary embolus Subclinical hypothyroidism Type 2 diabetes mellitus without complications Zenkers diverticulum Surgical History Surgical History H/O: hysterectomy History of cholecystectomy History of tonsillectomy Family History Family History Father Family history of coronary artery disease Family history of cardiovascular disease Mother Family history of coronary artery disease Family history of cardiovascular disease Social History Social History Smoking status: Never smoker Second hand tobacco smoke exposure: No Alcohol intake: current Gender identity (if verbalized by the patient): Female Comments At the time of my signature, I reviewed and agree with the nursing past medical, surgical, social, and family history. There is no relevant family history pertinent to the patient complaint. Exam Narrative: General: Well-developed, well nourished, in no apparent distress Head: Normocephalic, atraumatic Eyes: Pupils equally round and reactive to light bilaterally, EOM intact, sclera and conjunctive clear, no discharge, lids normal Ears: TMs intact and clear, ear canals clear, no drainage, grossly hearing normal. Nose: Nares patent, clear nasal
[2022-05-12 11:47] VITALS: BP 134/64; PULSE 77; RESP 14; TEMP 36.8; O2SAT 96
== END 2022-05-12 11:51 | disposition home or self-care (01) ==
PROVIDERS: Emergency Provider Nurse Practitioner Family; PCP Family Medicine
DX: J40 Bronchitis, not specified as acute or chronic (principal); I11.9 Hypertensive heart disease without heart failure; E11.9 Type 2 diabetes mellitus without complications; E78.2 Mixed hyperlipidemia; I48.20 Chronic atrial fibrillation, unspecified; Z79.01 Long term (current) use of anticoagulants; Z86.711 Personal history of pulmonary embolism
CPT/HCPCS: 99213; G0463

== ENCOUNTER 2022-10-04 19:02 | Emergency (ER) | payer OTHER, SELFPAY ==
[2022-10-04 19:16] VITALS: BP 163/105; PULSE 87; RESP 18; TEMP 36.6; O2SAT 99
--- NOTE | 2022-10-04 19:17 | ED.BACK ---
HPI - Back Pain/Injury General Chief Complaint: Back Pain/Injury Stated Complaint: rt sided back pain Time Seen by Provider: 10/04/22 19:17 Source: patient, RN notes reviewed and old records reviewed Mode of arrival: ambulatory Limitations: no limitations History of Present Illness HPI Narrative: 82-year-old female presents to the [facility] with complaints of right upper back pain since Thursday, 3 days after physical therapy. States states that she has tried taking Tylenol with minimal relief. Has been going to physical therapy for her arthritis in her neck and her right arm. As well as tight muscles in her trapezius. Has been taking her Xanax and took it just prior to arrival. Has a history of high blood pressure and states that she did take her medications. States that she has an appointment with her primary care provider on Denies any chest pain, shortness of breath. No midline tenderness. No headaches or neck pain. Onset (ago): day(s) (3) Related Data Home Medications Medication Instructions Recorded Confirmed carvedilol 25 mg tablet 25 mg PO BID 01/18/19 10/04/22 apixaban 5 mg tablet (Eliquis) 5 mg PO BID 06/28/19 10/04/22 furosemide 20 mg tablet 20 mg PO BID 06/28/19 10/04/22 rosuvastatin 20 mg tablet 20 mg PO DAILY 12/14/19 10/04/22 losartan 25 mg tablet 50 mg PO DAILY 06/26/20 10/04/22 calcium carbonate 200 mg calcium 600 mg PO BID 05/12/22 10/04/22 (500 mg) chewable tablet (Antacid (calcium carbonate)) cholecalciferol (vitamin D3) 25 50,000 mcg PO DAILY 05/12/22 10/04/22 mcg (1,000 unit) capsule cranberry extract 200 mg capsule 200 mg PO DAILY 05/12/22 10/04/22 fluoxetine 20 mg capsule 60 mg PO DAILY 05/12/22 10/04/22 glipizide 10 mg tablet 10 mg PO DAILY 05/12/22 10/04/22 spironolactone 25 mg tablet 25 mg PO DAILY 05/12/22 10/04/22 alprazolam 0.25 mg tablet (Xanax) 0.5 mg PO DAILY PRN anxiety 10/04/22 10/04/22 loratadine 10 mg tablet (Allergy 10 mg PO DAILY 10/04/22 10/04/22 Relief (loratadine)) Allergies Allergy/AdvReac Type Severity Reaction Status Date / Time lisinopril Allergy Severe cough Verified 05/12/22 11:41 amlodipine Allergy Difficulty Verified 10/04/22 19:34 Breathing MILI Inhibitors AdvReac Severe cough Verified 05/12/22 11:41 atorvastatin AdvReac Mild Muscle Pain Verified 05/12/22 11:41 citalopram AdvReac Mild Unknown Verified 05/12/22 11:41 hydrochlorothiazide AdvReac Dizziness Verified 10/04/22 19:34 Review of Systems Review of Systems: All systems reviewed & are unremarkable except as noted in HPI and below Constitutional: Constitutional: Reports no additional constitutional complaints Eyes: Eyes: Reports no additional eye complaints ENT: Reports system reviewed and no additional complaints, except as documented Cardiovascular: Cardiovascular: Reports no additional cardiovascular complaints, Denies chest pain and Denies dyspnea Respiratory: Respiratory: Reports no additional respiratory complaints, Denies chest congestion, Denies cough and Denies dyspnea Gastrointestinal: Gastrointestinal: Reports no additional gastrointestinal complaints, Denies abdominal pain, Denies nausea and Denies vomiting Musculoskeletal: Musculoskeletal: Reports as per HPI Integumentary/Breasts: Skin/Breast: Reports system reviewed and no additional complaints, except as docu Neurologic: Reports system reviewed and no additional complaints, except as documented Psychiatric: Psychiatric: Reports no additional psychiatric complaints Allergic/Immunologic: Allergic/Immunologic: Reports no additional allergic/immunologic complaints PMFSH Past Medical History Medical History Anxiety Chronic atrial fibrillation Chronic episodic atrial fibrillation Gastro-esophageal reflux disease without esophagitis Generalized anxiety disorder Hx of radiation therapy Hypertensive heart disease without heart failure Knee fracture Mixed hyperlip
== END 2022-10-04 19:41 | disposition home or self-care (01) ==
PROVIDERS: Emergency Provider Nurse Practitioner; PCP Family Medicine
DX: S46.811A Strain of other muscles, fascia and tendons at shoulder and upper arm level, right arm, initial encounter (principal); X58.XXXA Exposure to other specified factors, initial encounter; I48.20 Chronic atrial fibrillation, unspecified; K21.9 Gastro-esophageal reflux disease without esophagitis; I11.9 Hypertensive heart disease without heart failure; E78.2 Mixed hyperlipidemia; Z86.711 Personal history of pulmonary embolism; E11.9 Type 2 diabetes mellitus without complications; E03.8 Other specified hypothyroidism; F41.1 Generalized anxiety disorder
CPT/HCPCS: 99213; G0463

== ENCOUNTER → 2022-10-30 10:19 | Outpatient (CLI) | payer OTHER, SELFPAY ==
--- NOTE | ~2022-10-30 | MR_ITS ---
EXAMINATION: MR thoracic spine wo con DATE: 10/30/2022 11:08 INDICATION: Thoracic back pain TECHNIQUE: Magnetic resonance imaging (MRI) of the thoracic spine was performed without intravenous c ontrast. Sagittal localizer T1-weighted FSE of the cervicothoracic spine was obtained. Thoracic spine sequences included sagittal T2-weighted FSE, sagittal T1-weighted SE, Sagittal T2-weighted FS FSE, a nd axial T2-weighted FSE. COMPARISON: None FINDINGS: 18 degrees thoracic dextro scoliosis measured between T5 and T9. Sagittal alignment is normal. Chroni c L1 superior endplate compression fracture with 40% central vertebral body height loss. Disc centere d fibrovascular degenerative endplate changes at T4-T5, T6-T7 and L1-L2. T1 and T2 hyperintense heman gioma at the left side of T3. Marrow signal is otherwise normal. There is severe disc height loss wit h degenerative endplate changes at T4-T5, T6-T7, T7-T8, T8-T9 and L2-L3. There is fusion across a por tion of the anterior T6-T7 disc space. Moderate disc height loss at T3-T4, T5-T6, T10-T11, T11-T12 an d L1-L2. Mild disc height loss at the remaining thoracic levels. There are disc bulges, protrusions a nd a few small extrusions at every level throughout the thoracic spine resulting in multilevel centra l canal stenosis. There are annular fissures/associated at the majority of these levels. The central canal stenosis is most prominent at T4-T5, T6-T7, T7-T8 and T8-T9. There is associated indentation of the ventral surface of the cord at T4-T5 and T6-T7. Although not imaged on the axial imaging there a ppears to be moderate central canal stenosis at L1-L2 and L2-L3 on the sagittal images. There is mult ilevel bilateral thoracic facet osteoarthritis. This contributes to moderate neural foraminal stenosi s on the left at T7-T8 and T8-T9 and on the right at T10-T11. There is mild neural foraminal stenosis at many of the remaining thoracic levels on both the left and right. There is normal spinal cord sig nal. The conus terminates at L1. Paravertebral soft tissues are unremarkable. IMPRESSION: 1. 18 degrees thoracic dextroscoliosis with severe spondylosis. 2. Chronic L1 compression fracture. No acute osseous abnormality. Reviewed, dictated and finalized at location A.
== END ==
PROVIDERS: PCP Internal Medicine Cardiovascular Disease; Visit Provider Family Medicine
DX: M47.814 Spondylosis without myelopathy or radiculopathy, thoracic region (principal); M41.34 Thoracogenic scoliosis, thoracic region; S32.010A Wedge compression fracture of first lumbar vertebra, initial encounter for closed fracture; X58.XXXA Exposure to other specified factors, initial encounter
CPT/HCPCS: 72146

== ENCOUNTER 2023-12-30 14:06 | Observation (INO) | payer OTHER, SELFPAY ==
[2023-12-30] VITALS (12 sets, daily range): BP systolic 91–124; BP diastolic 60–92; PULSE 80–104; RESP 16–20; TEMP 36.3–37; O2SAT 98–100; BMI 30.9
--- NOTE | 2023-12-30 14:15 | ECG_ITS ---
Test Date: 2023-12-30 14:20:40 Measurements Intervals [place] Rate: 86 P: 0 [place]: 0 QRS: 14 QRSD: 101 T: -4 QT: 354 QTc: 425 Interpretive Statements ATRIAL FIBRILLATION INFERIOR MYOCARDIAL INFARCTION , PROBABLY OLD [40+ ms Q WAVE AND/OR ST/T ABNORMALITY IN II/aVF] No previous ECG available for comparison Electronically Signed On 12-30-2023 14:59:03 CDT by Darek Herrera M.D.
--- NOTE | 2023-12-30 14:36 | ED.GENADULT ---
HPI - General Adult General Chief complaint: Recheck/Abnormal Lab/Rx <Chandler Blum APRN - Last Filed: 12/30/23 14:37> Stated complaint: GIB <Chandler Blum APRN - Last Filed: 12/30/23 14:37> Time Seen by Provider: 12/30/23 15:14 <Chandler Blum APRN - Last Filed: 12/30/23 14:37> 83-year-old female presents from [facility] with low hemoglobin. Patient states she has dark tarry stools for the past week or so. Patient is on Eliquis. Patient states she is fatigued. Patient denies abdominal pain or fevers. GENERAL: Lethargic well-nourished, and in no acute distress. HEAD: Normocephalic, atraumatic. EYES: PERRLA and EOMI. ENT: Nares clear, no rhinorrhea or epistaxis. Mucous membranes moist. NECK: Supple. CHEST: Clear to auscultation. No respiratory distress. HEART: Regular rate and rhythm. No murmur heard. Normal peripheral pulses. ABDOMEN: Soft, nontender, nondistended, normal active bowel sounds. EXTREMITIES: Normal range of motion. No edema. SKIN: Warm, dry, no rash. Pale NEURO: No focal deficits. Alert and oriented x3. PSYCH: Normal mood and affect. <Chandler Blum APRN - Last Filed: 12/30/23 14:37> History of Present Illness HPI narrative: Agree with HPI. Patient also recently had a left sided hip surgery where they inserted a rotten in reinforced the femur. She had been getting heparin but is now fully transition back to her oral anticoagulant. She feels profoundly weak and short of breath. No head injury. <Jorge Garnica MD - Last Filed: 12/30/23 18:45> Related Data Home medications: Home Medications Medication Instructions Recorded Confirmed carvedilol 25 mg tablet 25 mg PO BID 01/18/19 12/30/23 apixaban 5 mg tablet (Eliquis) 5 mg PO BID 06/28/19 12/30/23 furosemide 20 mg tablet 20 mg PO BID 06/28/19 12/23/23 rosuvastatin 20 mg tablet 20 mg PO DAILY 12/14/19 12/30/23 losartan 25 mg tablet 50 mg PO DAILY 06/26/20 12/23/23 calcium carbonate (Antacid 600 mg PO BID 05/12/22 12/30/23 (calcium carbonate)) cholecalciferol (vitamin D3) 25 50,000 mcg PO DAILY 05/12/22 12/30/23 mcg (1,000 unit) capsule cranberry extract 200 mg capsule 200 mg PO DAILY 05/12/22 12/23/23 fluoxetine 20 mg capsule 60 mg PO DAILY 05/12/22 12/30/23 glipizide 10 mg tablet 10 mg PO DAILY 05/12/22 12/23/23 spironolactone 25 mg tablet 50 mg PO DAILY 05/12/22 12/30/23 loratadine 10 mg tablet (Allergy 10 mg PO DAILY 10/04/22 12/23/23 Relief (loratadine)) alprazolam 0.5 mg tablet mg BID PRN Anxiety 12/30/23 <Chandler Blum APRN - Last Filed: 12/30/23 14:37> Allergies/adverse reactions: Allergies Allergy/AdvReac Type Severity Reaction Status Date / Time lisinopril Allergy Severe cough Verified 12/30/23 15:19 amlodipine Allergy Difficulty Verified 12/30/23 15:19 Breathing MILI Inhibitors AdvReac Severe cough Verified 12/30/23 15:19 atorvastatin AdvReac Mild Muscle Pain Verified 12/30/23 15:19 citalopram AdvReac Mild Unknown Verified 12/30/23 15:19 hydrochlorothiazide AdvReac Dizziness Verified 12/30/23 15:19 <Chandler Blum APRN - Last Filed: 12/30/23 14:37> Review of Systems Review of Systems: All systems reviewed & are unremarkable except as noted in HPI and below <Jorge Garnica MD - Last Filed: 12/30/23 18:45> Constitutional: Constitutional: Reports fatigue, Denies fever(s) and Reports weakness <Jorge Garnica MD - Last Filed: 12/30/23 18:45> ENT: Reports system reviewed and no additional complaints, except as documented <Jorge Garnica MD - Last Filed: 12/30/23 18:45> Cardiovascular: Cardiovascular: Reports no additional cardiovascular complaints <Jorge Garnica MD - Last Filed: 12/30/23 18:45> Respiratory: Respiratory: Reports no additional respiratory complaints <Jorge Garnica MD - Last Filed: 12/30/23 18:45> Gastrointestinal: Gastrointestinal: Reports no additional gastrointestinal complaints <Jorge Garnica MD - Last Filed: 12/30/23
[2023-12-30 15:01] LABS: INR 1.4; Prothrombin Time 17.5 Seconds (11.1-14.7)
[2023-12-30 15:02] LABS: Alanine Aminotransferase 22 U/L (6-35); Albumin Level 3.5 g/dL (3.5-5.1); Alkaline Phosphatase 141 U/L (38-126); Anion Gap 9 mmol/L (4-12); Aspartate Amino Transferase 24 U/L (14-36); Bilirubin,Total 0.5 mg/dL (0.2-1.3); Blood Urea Nitrogen 37 mg/dL (7-17); Calcium 9.7 mg/dL (8.4-10.2); Carbon Dioxide 22 mmol/L (22-30); Chloride 100 mmol/L (98-107); Estimated Glomerular Filt Rate > 60; Glucose 171 mg/dL (65-110); Partial Thromboplastin Time 22.9 Seconds (22.3-36.8); Potassium 4.8 mmol/L (3.4-5.0); Sodium 131 mmol/L (137-145)
[2023-12-30 15:15] LABS: Basophils Percent Auto 0.3 % (0.2-1.2); Eosinophils Percent Auto 0.1 % (0-4.4); Hematocrit 21.4 % (37.0-47.0); Immature Granulocyte Absolute 0.03 K/mm3 (0.00-0.031); Immature Granulocyte Percent A 0.4 % (0-0.5); Lymphocytes Absolute Auto 1.01 K/mm3 (0.9-3.2); Lymphocytes Percent Auto 14.7 % (18.3-44.2); Mean Corpuscular HGB Conc 30.8 g/dl (32-36); Mean Corpuscular Hemoglobin 33.3 pg (26-34); Mean Corpuscular Volume 108.1 fl (80-100); Monocytes Absolute Auto 0.5 K/mm3 (0.1-0.6); Monocytes Percent Auto 6.5 % (2.6-8.5); Neutrophils Absolute Auto 5.4 K/mm3 (1.3-6.7); Nucleated Red Blood Cells Perc 0.3 % (0.0-0.2); Platelet Count Result 343 k/mm3 (150-375); Red Blood Count 1.98 M/mm3 (4.2-5.4); Red Cell Distribution Width 20.3 % (11.5-14.5); White Blood Count 6.9 K/mm3 (4.5-10.0)
[2023-12-30 15:43] LABS: Hemoglobin 6.6 g/dL (12.0-15.0)
[2023-12-30 15:45] LABS: Hypochromasia 1+; Platelet Estimate Adequate (Adequate); Schistocytes None Seen
[2023-12-30 15:46] LABS: Anisocytosis 3+; Macrocytosis 1+ (NORMAL)
[2023-12-30] MEDS: PANTOPRAZOLE SODIUM IV 40 MG VIAL IV PUSH (15:58)
--- NOTE | 2023-12-30 16:48 | WPDGICN ---
Assessment and Plan Assessment and plan (1) Acute upper GI bleed: Code(s): K92.2 - Gastrointestinal hemorrhage, unspecified Status: Acute (2) Anemia: Qualifiers: Anemia type: other cause Code(s): D64.9 - Anemia, unspecified Status: Acute Plan The patient has melena and severe anemia. This is probably acute on chronic since she is not severely compromised hemodynamically to explain her very low hemoglobin. Most likely source would be an upper GI bleeding, either peptic ulcer vs. erosive gastritis. Patient already started on pantoprazole intravenously twice a day, and transfusion of 2 packs of red blood cells ordered. She will be monitored in IMU and will be kept NPO. We will plan on EGD tomorrow. GI Consult Note Consult date/time: 12/30/23 16:48 Reason for consult: Recent onset of melena HPI: Prema Pearce is a 83 year old female status post recent hip replacement at [facility]. She has a history of atrial fibrillation and has been on Eliquis. Over the past 24 hours he has noticed dark black stools and weakness. At [facility] ER melena was corroborated by rectal examination. There is no history of peptic ulcer disease, liver disease or ingestion of NSAIDs. Review of Systems Review of Systems: All systems reviewed & are unremarkable except as noted in HPI and below PMFSH Past Medical History Medical History (Updated 12/30/23 @ 16:53 by Timothy Hoyt MD) Anxiety Chronic atrial fibrillation Chronic episodic atrial fibrillation Gastro-esophageal reflux disease without esophagitis Generalized anxiety disorder Hx of radiation therapy Hypertensive heart disease without heart failure Knee fracture Mixed hyperlipidemia Pulmonary embolus Subclinical hypothyroidism Type 2 diabetes mellitus without complications Zenkers diverticulum Surgical History Surgical History (Updated 12/30/23 @ 15:43 by Jorge Garnica MD) H/O: hysterectomy History of cholecystectomy History of hip surgery History of tonsillectomy Family History Family History Father Family history of coronary artery disease Family history of cardiovascular disease Mother Family history of coronary artery disease Family history of cardiovascular disease Social History Social History Smoking status: Never smoker Second hand tobacco smoke exposure: No Alcohol intake: current Gender identity (if verbalized by the patient): Female Meds Home Medications and Allergies Home Medications Medication Instructions Recorded Confirmed Type carvedilol 25 mg tablet 25 mg PO BID 01/18/19 12/23/23 History apixaban 5 mg tablet (Eliquis) 5 mg PO BID 06/28/19 12/23/23 History furosemide 20 mg tablet 20 mg PO BID 06/28/19 12/23/23 History rosuvastatin 20 mg tablet 20 mg PO DAILY 12/14/19 12/23/23 History metformin 1,000 mg tablet See Rx Instructions .Route 03/21/20 12/23/23 Rx .COMPLEX #90 tabs levothyroxine 25 mcg tablet 50 mcg PO DAILY #180 tabs 04/27/20 12/23/23 Rx (Synthroid) losartan 25 mg tablet 50 mg PO DAILY 06/26/20 12/23/23 History zolpidem 5 mg tablet 5 mg PO HS PRN insomnia 90 days 06/26/20 12/23/23 Rx #90 tabs calcium carbonate (Antacid 600 mg PO BID 05/12/22 12/23/23 History (calcium carbonate)) cholecalciferol (vitamin D3) 25 50,000 mcg PO DAILY 05/12/22 12/23/23 History mcg (1,000 unit) capsule cranberry extract 200 mg capsule 200 mg PO DAILY 05/12/22 12/23/23 History fluoxetine 20 mg capsule 60 mg PO DAILY 05/12/22 12/23/23 History glipizide 10 mg tablet 10 mg PO DAILY 05/12/22 12/23/23 History prednisone 20 mg tablet 40 mg PO DAILY 5 days #10 tabs 05/12/22 12/23/23 Rx spironolactone 25 mg tablet 25 mg PO DAILY 05/12/22 12/23/23 History lidocaine 5 % topical patch 1 patch topical DAILY #15 ea 10/04/22 12/23/23 Rx (Lidoderm)
--- NOTE | 2023-12-30 17:50 | PM.IMHP ---
H&P: HPI History of Present Illness Date/Time: 12/30/23 17:45 Chief Complaint: Low hemoglobin. Narrative: This is a very pleasant 83-year-old female with history of gastroesophageal reflux disease, Zenker's diverticulum, stroke, atrial fibrillation on chronic anticoagulation, hypertension, dyslipidemia, heart failure with preserved ejection fraction, moderate aortic stenosis, pulmonary embolism, obstructive sleep apnea on CPAP, and type 2 diabetes mellitus who presented to the emergency department via EMS from [facility] for evaluation after she was found to have a low hemoglobin. The patient provides the following history. She is currently at [facility] for rehab following repair of a left femoral fracture done at [place]. She has been doing well and participating in rehab however over the past week or so she has become fatigued and reports having occasional dark, tarry stools which have become more frequent the last couple of days. Labs were drawn today and she was found to be anemic and was sent to the ED. With further questioning she does mention mild abdominal bloating and belching. She has not had epigastric or abdominal pain and her GERD are not worse than usual. She denies syncope, near syncope, chest pain, palpitations, shortness of breath, nausea, and vomiting. No history of peptic ulcers. She is quite anxious about holding apixaban given history of strokes. She mentions that she and her program arranger spoke briefly about possible left atrial appendage closure but not formally. In the ED: Vital signs were stable on arrival. Labs are significant for a hemoglobin of 6.6, hematocrit 21.4%, MCV 108.1, INR 1.4, sodium 131, BUN 37, creatinine 0.70, glucose 171. 2 units packed red blood cells were ordered and she was started on IV pantoprazole. She is being admitted in this setting for further evaluation and GI consultation. Review of Systems Review of Systems: 12 systems were reviewed and are negative except for as per HPI. 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) Subclinical hypothyroidism Type 2 diabetes mellitus without complications Zenkers diverticulum Surgical History Surgical History History of cholecystectomy History of hip surgery History of hysterectomy History of open reduction and internal fixation (ORIF) procedure repair left femur fracture History of tonsillectomy Family History Family History Father Family history of coronary artery disease Family history of cardiovascular disease Mother Family history of coronary artery disease Family history of cardiovascular disease Social History Social History (Updated 12/30/23 @ 22:47 by Mary Alice Freed PA-C) Social History: Surrogate medical decision maker: Homer Culp, son. Code status: Full code. Smoking status: Never smoker Second hand tobacco smoke exposure: No Alcohol intake: never Substance use: never Substance use type: does not use Do You Feel Safe in your Home?: Yes Lack of Transportation: YES Lack of Food: Never True Current Housing: I Have Housing Concerned About Future Housing: No Difficulty Paying Gas/Electric Bills: YES Difficulty Paying for Meds: YES Currently Unemployed: No Education: Grade School Difficulty w/ Childcare or Family Care: No Spiritual care concerns: No Meds Home Medications and Allergies Home Medications Medication Instructions Recorded Confirmed Type carvedilol 25 mg
[2023-12-30 18:36] LABS: Glucose Point of Care 106 mg/dl (65-105)
--- NOTE | 2023-12-30 18:36 | ADMGEN ---
This patient, Prema Pearce, was admitted to IMU Room 206-0 @ 1740 . Patient/family oriented to hospital policies and general routines including ID bracelet, bed and alarms, visiting hours, pain management, procedures, bathroom and other care routines, personal items, smoking policy, room service/diet, and visiting hours. Information on how to activate the Rapid Response Team has been discussed. Patient/Family are encouraged to report perceived risks to care and to ask questions if they do not understand what they are told or what they should do.
[2023-12-30 20:15] LABS: Iron 64 ug/dL (37-170)
[2023-12-30 20:24] LABS: Percent Iron Saturation 15 % (20-50)
[2023-12-30 22:30] LABS: Folic Acid 7.7 ng/mL (2.76->20)
[2023-12-30] MEDS: ALPRAZolam (*CRX) 0.25 MG TABLET PO (23:23)
[2023-12-30] MEDS: carvediloL 25 MG TABLET PO (23:23)
[2023-12-31] VITALS (27 sets, daily range): BP systolic 85–123; BP diastolic 47–76; PULSE 62–108; RESP 12–20; TEMP 35.7–37.1; O2SAT 95–100
[2023-12-31 00:32] LABS: Glucose Point of Care 57 mg/dl (65-105)
[2023-12-31] MEDS: DEXTROSE 50% 25 GM/50 ML SYRINGE IV PUSH (00:41)
[2023-12-31 01:04] LABS: Glucose Point of Care 194 mg/dl (65-105)
[2023-12-31] MEDS: SODIUM CHLORIDE 0.9% IV 250 ML 30 ML IV CONT (04:30)
[2023-12-31 06:30] LABS: Glucose Point of Care 73 mg/dl (65-105)
[2023-12-31] MEDS: TUBING, BLOOD PLUM PUMP TUBING 1 EACH XX (06:32)
[2023-12-31 08:13] LABS: Anion Gap 4 mmol/L (4-12); Blood Urea Nitrogen 22 mg/dL (7-17); Calcium 9.2 mg/dL (8.4-10.2); Carbon Dioxide 26 mmol/L (22-30); Chloride 104 mmol/L (98-107); Estimated CRCL calculation 67 ml/min; Estimated Glomerular Filt Rate > 60; Glucose 71 mg/dL (65-110); Potassium 5.3 mmol/L (3.4-5.0); Sodium 134 mmol/L (137-145)
[2023-12-31] MEDS: FLUoxetine HCL 20 MG CAPSULE PO (08:20)
[2023-12-31] MEDS: PANTOPRAZOLE SODIUM IV 40 MG VIAL IV PUSH ×2 (08:20→21:57)
[2023-12-31] MEDS: carvediloL 25 MG TABLET PO ×2 (08:21→21:55)
[2023-12-31 08:24] LABS: Hematocrit 25.5 % (37.0-47.0); Mean Corpuscular HGB Conc 31.4 g/dl (32-36); Mean Corpuscular Hemoglobin 33.3 pg (26-34); Mean Corpuscular Volume 106.3 fl (80-100); Mean Platelet Volume 8.8 fl (7.4-10.4); Platelet Count Result 293 k/mm3 (150-375); Red Cell Distribution Width 20.3 % (11.5-14.5); White Blood Count 5.7 K/mm3 (4.5-10.0)
[2023-12-31 10:01] LABS: Glucose Point of Care 91 mg/dl (65-105)
--- NOTE | 2023-12-31 10:33 | PC.NURSE ---
Patient to GI Lab for EGD. No acute distress noted. Blood transfusing.
[2023-12-31 10:46] LABS: Glucose Point of Care 80 mg/dl (65-105)
--- NOTE | 2023-12-31 11:08 | WPDANESEPPF ---
Anes - Initial Pre Proc Eval Procedure: Operation Date: 12/31/23 11:30 Proposed Procedures p Esophagogastroduodenoscopy - Timothy Hoyt MD Date/Time: 12/31/23 11:08 Surgeon: Mariah Guevara MD Pre Op Diagnosis: Upper GI Bleed Patient Data Age: 83 Gender: F Height: 1.55 m Weight: 75.6 kg Last Vital Signs Temp 36.9 C 12/31/23 10:30 Pulse 100 12/31/23 10:30 Resp 18 12/31/23 10:30 BP 106/72 12/31/23 10:30 Pulse Ox 100 12/31/23 10:30 O2 Del Method Room Air 12/31/23 09:02 Allergies Allergy/AdvReac Type Severity Reaction Status Date / Time lisinopril Allergy Severe cough Verified 12/31/23 10:49 amlodipine Allergy Difficulty Verified 12/31/23 10:49 Breathing MILI Inhibitors AdvReac Severe cough Verified 12/31/23 10:49 atorvastatin AdvReac Mild Muscle Pain Verified 12/31/23 10:49 citalopram AdvReac Mild Unknown Verified 12/31/23 10:49 hydrochlorothiazide AdvReac Dizziness Verified 12/31/23 10:49 Home Medications Medication Instructions Recorded Confirmed Type carvedilol 25 mg tablet 25 mg PO BID 01/18/19 12/30/23 History apixaban 5 mg tablet (Eliquis) 5 mg PO BID 06/28/19 12/30/23 History rosuvastatin 20 mg tablet 20 mg PO HS 12/14/19 12/30/23 History levothyroxine 25 mcg tablet 50 mcg PO DAILY #180 tabs 04/27/20 12/30/23 Rx (Synthroid) cholecalciferol (vitamin D3) 25 50 mcg PO DAILY 05/12/22 12/30/23 History mcg (1,000 unit) capsule fluoxetine 20 mg capsule 20 mg PO DAILY 05/12/22 12/30/23 History glipizide 10 mg tablet 10 mg PO BID 05/12/22 12/30/23 History spironolactone 25 mg tablet 50 mg PO DAILY 05/12/22 12/30/23 History lidocaine 5 % topical patch 1 patch topical DAILY #15 ea 10/04/22 12/30/23 Rx (Lidoderm) alprazolam 0.25 mg tablet (Xanax) 0.25 mg PO BID PRN anxiety 2 weeks 12/17/23 12/30/23 Rx #30 tabs oxycodone 5 mg tablet 5 mg PO Q4H PRN pain 2 weeks #60 12/17/23 12/30/23 Rx tabs acetaminophen 500 mg tablet 1,000 mg PO Q6H PRN Pain (Scale 12/30/23 12/30/23 History Score 1-3) calcium carbonate (Tums) 200 mg PO Q6H PRN Acid Reflux 12/30/23 12/30/23 History melatonin 5 mg tablet 5 mg PO HS 12/30/23 12/30/23 History metformin 500 mg tablet 500 mg PO BIDWMEAL 12/30/23 12/30/23 History methocarbamol 500 mg tablet 500 mg PO TID 12/30/23 12/30/23 History polyethylene glycol 3350 17 gram 17 g PO DAILY 12/30/23 12/30/23 History oral powder packet (Miralax) sennosides 8.6 mg tablet (senna) 8.6 mg PO DAILY PRN Constipation 12/30/23 12/30/23 History Laboratory Tests 12/30/23 12/30/23 12/30/23 14:41 14:41 14:41 WBC 6.9 K/mm3 (4.5-10.0) RBC 1.98 L M/mm3 (4.2-5.4) Hgb 6.6 L* g/dL (12.0-15.0) Hct 21.4 L % (37.0-47.0) MCV 108.1 H fl (80-100) MCH 33.3 pg (26-34) MCHC 30.8 L g/dl (32-36) RDW 20.3 H % (11.5-14.5) Plt Count 343 k/mm3 (150-375) MPV 9.0 fl (7.4-10.4) Immature Gran % (Auto) 0.4 % (0-0.5) Neut % (Auto) 78.0 H % (45.5-73.1) Lymph % (Auto) 14.7 L % (18.3-44.2) [place] % (Auto) 6.5 % (2.6-8.5) Eos % (Auto) 0.1 % (0-4.4) Baso % (Auto) 0.3 % (0.2-1.2) Lymph # (Auto) 1.01 K/mm3 (0.9-3.2) [place] # (Auto) 0.5 K/mm3 (0.1-0.6) Eos # (Auto) 0.0 K/mm3 (0-0.3) Baso # (Auto) 0.0 K/mm3 (0.0-0.1) Abs Immat Gran (auto) 0.03 K/mm3 (0.00-0.031) Absolute Neuts (auto) 5.4 K/mm3 (1.3-6.7) Absolute Nucleated RBC 0.020 H K/mm3 (0.0-0.012) Nucleated RBC % 0.3 H % (0.0-0.2) Platelet Estimate Adequate (Adequate) Hypochromasia 1+ Anisocytosis 3+ Macrocytosis 1+ (NORMAL) Schistocytes None seen PT 17.5 H Seconds (11.1-14.7) INR 1.4 APTT 22.9 Seconds (22.3-36.8) Sodium 131 L mmol/L
[2023-12-31] MEDS: LACTATED RINGERS 1,000 ML 150 ML IV CONT (11:14)
--- NOTE | 2023-12-31 11:36 | WPDGIPROGNO ---
Progress Note: A&P Assessment and Plan (1) GI bleed: Code(s): K92.2 - Gastrointestinal hemorrhage, unspecified Status: Acute (2) Duodenal ulcer: Code(s): K26.9 - Duodenal ulcer, unspecified as acute or chronic, without hemorrhage or perforation Status: Acute Assessment and Plan: See endoscopy report. There was an clean based duodenal ulcer, with no stigmata of imminent or active bleeding. The patient can be fed normally (regular diet) , and pantoprazole can be switched to 40 mg b.i.d., to continue for 1 month. Biopsies were taken to rule out Helicobacter pylori, and will treat accordingly if positive. If patient continues to be stable from a hemodynamic standpoint, she can be discharged tomorrow and I can follow her up in consult patient in 6-8 weeks. She can resume her anticoagulation in 5-7 days. Subjective Date/time seen: 12/31/23 11:36 Interval history: The patient continued to have a few melena episodes last night. Denies abdominal pain no other symptoms. Exam Const: General: cooperative and healthy appearing Resp: Effort & Inspection: normal respiratory effort and able to speak in complete sentences Auscultation: clear to auscultation bilaterally Cardio: Rate: regular rate Rhythm: regular rhythm GI: Inspection: normal to inspection GI Palp: No No hepatosplenomegaly present Auscultation: normal bowel sounds Rectal Exam: deferred Skin: General skin exam: normal color Psych: Appearance: grossly normal Mental Status: mental status grossly normal Objective Data Vital Signs Vital Signs: Vital Signs - 24 hr 12/30/23 14:10 12/30/23 15:19 12/30/23 15:30 Temperature 97.4 F L Pulse Rate 104 H 96 95 Respiratory Rate 20 16 19 Blood Pressure 111/61 Pulse Oximetry 99 100 Oxygen Delivery 12/30/23 15:32 12/30/23 17:28 12/30/23 18:08 Temperature 98.2 F Pulse Rate 86 87 100 Respiratory Rate 16 18 18 Blood Pressure 124/66 111/92 H 114/65 Pulse Oximetry 99 98 100 Oxygen Delivery 12/30/23 18:00 12/30/23 20:00 12/30/23 20:00 Temperature 98 F Pulse Rate 96 100 Respiratory Rate 16 Blood Pressure 112/60 Pulse Oximetry 100 Oxygen Delivery Room Air 12/30/23 20:00 12/30/23 22:36 12/30/23 23:23 Temperature Pulse Rate 88 95 80 Respiratory Rate 18 Blood Pressure Pulse Oximetry Oxygen Delivery Autopap 12/30/23 23:43 12/30/23 23:51 12/31/23 00:00 Temperature 98.6 F Pulse Rate 95 99 Respiratory Rate 16 Blood Pressure 91/63 L Pulse Oximetry 99 Oxygen Delivery Room Air 12/31/23 03:39 12/31/23 03:58 12/31/23 04:16 Temperature 98 F 98.5 F Pulse Rate 95 92 Respiratory Rate 20 18 Blood Pressure 102/60 100/57 L Pulse Oximetry 97 95 Oxygen Delivery Room Air 12/31/23 04:00 12/31/23 05:16 12/31/23 06:16 Temperature 98.6 F 97.8 F Pulse Rate 88 104 H 83 Respiratory Rate 20 15 Blood Pressure 106/61 112/66 Pulse Oximetry 99 99 Oxygen Delivery 12/31/23 04:00 12/31/23 07:57 12/31/23 07:30 Temperature 98.1 F 98.2 F Pulse Rate 90 71 82 Respiratory Rate 16 18 Blood Pressure 109/62 109/62 Pulse Oximetry 99 99 Oxygen Delivery 12/31/23 08:15 12/31/23 08:21 12/31/23 08:27 Temperature 98.3 F 98.3 F Pulse Rate 62 87 89 Respiratory Rate 16 18 Blood Pressure 104/61 111/52 L Pulse Oximetry 98 98 Oxygen Delivery 12/31/23 08:30 12/31/23 09:02 12/31/23 09:30 Temperature 98.3 F 98.8 F Pulse Rate 88 85 Respiratory Rate 14 16 Blood Pressure 111/52 L 110/55 L Pulse Oximetry 96 97 97 Oxygen Delivery Room Air 12/31/23 08:00 12/31/23 08:00 12/31/23 10:30 Temperature 98.5 F Pulse Rate 108 H 100 Respiratory Rate 18 Blood Pressure 106/72 Pulse Oximetry 100 Oxygen Delivery Room Air 12/31/23 10:00 12/31/23 10:55 12/31/23 11:06 Temperature 96.2 F L 96.7 F L Pulse Rate 99 88 84 Respiratory Rate 16 18 Blood Pressure 120/76 123/66 Pulse Oximetry 99 9
[2023-12-31 12:24] LABS: Glucose Point of Care 84 mg/dl (65-105)
[2023-12-31 12:58] LABS: Glucose Point of Care 86 mg/dl (65-105)
--- NOTE | 2023-12-31 14:16 | PM.IMPN ---
Progress Note: A&P Assessment and Plan (1) GI bleed: Code(s): K92.2 - Gastrointestinal hemorrhage, unspecified Status: Acute Assessment and Plan: EGD shows DU Continue iv protonix tonight Transition to oral in AM Dc back to facility charo Pt on bland diet and off eliquis for 5-7 days (2) Symptomatic anemia: Code(s): D64.9 - Anemia, unspecified Status: Acute Assessment and Plan: hb is 8 rpt charo (3) Chronic anticoagulation: Code(s): Z79.01 - nursing home (current) use of anticoagulants Status: Acute Assessment and Plan: hold eliquis for few days (4) Atrial fibrillation: Code(s): I48.91 - Unspecified atrial fibrillation Status: Acute Assessment and Plan: stable known history of af (5) Heart failure with preserved ejection fraction: Code(s): I50.30 - Unspecified diastolic (congestive) heart failure Status: Acute Assessment and Plan: stable known history of CHF (6) Gastro-esophageal reflux disease without esophagitis: Code(s): K21.9 - Gastro-esophageal reflux disease without esophagitis Status: Acute Assessment and Plan: DC on oral protonix (7) Obstructive sleep apnea on CPAP: Code(s): G47.33 - Obstructive sleep apnea (adult) (pediatric) Status: Acute Assessment and Plan: CPAP by bedside (8) Type 2 diabetes mellitus without complications: Code(s): E11.9 - Type 2 diabetes mellitus without complications Status: Acute Assessment and Plan: accuchecks, SSI (9) Hypothyroidism: Code(s): E03.9 - Hypothyroidism, unspecified Status: Acute Assessment and Plan: Continue home levothyroxine Subjective Date/time seen: 12/31/23 14:16 Interval history: 83-year-old female with history of gastroesophageal reflux disease, Zenker's diverticulum, stroke, atrial fibrillation on chronic anticoagulation, hypertension, dyslipidemia, heart failure with preserved ejection fraction, moderate aortic stenosis, pulmonary embolism, obstructive sleep apnea on CPAP, and type 2 diabetes mellitus who presented to the emergency department via EMS from [facility] for evaluation after she was found to have a low hemoglobin. The patient provides the following history. She is currently at [facility] for rehab following repair of a left femoral fracture done at [place]. She has been doing well and participating in rehab however over the past week or so she has become fatigued and reports having occasional dark, tarry stools which have become more frequent the last couple of days. Labs were drawn today and she was found to be anemic and was sent to the ED. Pt had EGD under GI showing - clean based duodenal ulcer, with no stigmata of imminent or active bleeding. Pt to continue on iv protonix tonight and transition to oral protonix charo and DC back to her facility pt will need to follow with GI MD and continue on oral protonix. pt to hold eliquis for 5-7 days Review of Systems Review of Systems: Long standing GERD and reflux and belching Exam Const: General: cooperative, healthy appearing and overweight; No in distress Nutritional Appearance: overweight Orientation/consciousness: oriented to person HENMT: Head: normal to inspection Resp: Effort & Inspection: no respiratory distress Auscultation: no rhonchi and no wheezes Cardio: Rate: regular rate Rhythm: regular rhythm GI: Inspection: normal to inspection GI Palp: No abdominal tenderness, No Guarding due to palpation present (GI) and No Hepatomegaly present Auscultation: normal bowel sounds Neuro: General: oriented to person Objective Data Vital Signs Vital Signs: Vital Signs - 24 hr 12/30/23 15:19 12/30/23 15:30 12/30/23 15:32 Temperature Pulse Rate 96 95 86 Respiratory Rate 16 19 16 Blood Pressure 124/66 Pulse Oximetry 99 100 99 Oxygen Delivery 12/30/23 17:28 12/30/23 18:08 12/30/23 1
[2023-12-31 15:47] LABS: Glucose Point of Care 196 mg/dl (65-105)
--- NOTE | 2023-12-31 16:02 | PC.NURSE ---
This patient, Prema Pearce, was transferred to [facility] on 12/31/23 at 1551. Personal belongings sent with patient. Report given to Poonam. Appropriate documentation sent with patient.
[2023-12-31] MEDS: HYDROcodone/acetaminophen (*CRX) 5-325 MG TABLET 1 TAB PO ×2 (17:25→21:57)
[2023-12-31 17:33] LABS: Glucose Point of Care 157 mg/dl (65-105)
--- NOTE | 2023-12-31 21:26 | WPDGIPROGNO ---
Progress Note: A&P Assessment and Plan (1) Duodenal ulcer: Code(s): K26.9 - Duodenal ulcer, unspecified as acute or chronic, without hemorrhage or perforation Status: Acute Assessment and Plan: Patient can be discharged tomorrow on regular diet and Protonix 40 mg biD. This should continue for 6 weeks, and then reduce dose to 40 mg qD permanently. We will notify pt if H pylori is (+) to treat her accordingly. Avoid NSAIDS and Aspirin, may resume anticoagulation in 5-7 days. I can see her in the office in 6-8 weeks, please arrange for appt. thank you . (2) GI bleed: Code(s): K92.2 - Gastrointestinal hemorrhage, unspecified Status: Acute Subjective Date/time seen: 12/31/23 21:26 Interval history: Pt doing well after EGD. Objective Data Vital Signs Vital Signs: Vital Signs - 24 hr 12/30/23 22:36 12/30/23 23:23 12/30/23 23:43 Temperature Pulse Rate 95 80 Respiratory Rate 18 Blood Pressure Pulse Oximetry Oxygen Delivery Autopap Room Air 12/30/23 23:51 12/31/23 00:00 12/31/23 03:39 Temperature 98.6 F Pulse Rate 95 99 Respiratory Rate 16 Blood Pressure 91/63 L Pulse Oximetry 99 Oxygen Delivery Room Air 12/31/23 03:58 12/31/23 04:16 12/31/23 04:00 Temperature 98 F 98.5 F Pulse Rate 95 92 88 Respiratory Rate 20 18 Blood Pressure 102/60 100/57 L Pulse Oximetry 97 95 Oxygen Delivery 12/31/23 05:16 12/31/23 06:16 12/31/23 04:00 Temperature 98.6 F 97.8 F Pulse Rate 104 H 83 90 Respiratory Rate 20 15 Blood Pressure 106/61 112/66 Pulse Oximetry 99 99 Oxygen Delivery 12/31/23 07:57 12/31/23 07:30 12/31/23 08:15 Temperature 98.1 F 98.2 F 98.3 F Pulse Rate 71 82 62 Respiratory Rate 16 18 16 Blood Pressure 109/62 109/62 104/61 Pulse Oximetry 99 99 98 Oxygen Delivery 12/31/23 08:21 12/31/23 08:27 12/31/23 08:30 Temperature 98.3 F 98.3 F Pulse Rate 87 89 88 Respiratory Rate 18 14 Blood Pressure 111/52 L 111/52 L Pulse Oximetry 98 96 Oxygen Delivery 12/31/23 09:02 12/31/23 09:30 12/31/23 08:00 Temperature 98.8 F Pulse Rate 85 108 H Respiratory Rate 16 Blood Pressure 110/55 L Pulse Oximetry 97 97 Oxygen Delivery Room Air 12/31/23 08:00 12/31/23 10:30 12/31/23 10:00 Temperature 98.5 F Pulse Rate 100 99 Respiratory Rate 18 Blood Pressure 106/72 Pulse Oximetry 100 Oxygen Delivery Room Air 12/31/23 10:55 12/31/23 11:06 12/31/23 12:05 Temperature 96.2 F L 96.7 F L Pulse Rate 88 84 99 Respiratory Rate 16 18 20 Blood Pressure 120/76 123/66 85/50 L Pulse Oximetry 99 98 98 Oxygen Delivery Room Air Room Air 12/31/23 12:15 12/31/23 12:25 12/31/23 12:45 Temperature Pulse Rate 73 78 Respiratory Rate 20 20 Blood Pressure 91/47 L 116/52 L Pulse Oximetry 97 97 Oxygen Delivery Room Air Room Air Room Air 12/31/23 12:00 12/31/23 14:00 12/31/23 15:52 Temperature 98.5 F 98.1 F Pulse Rate 80 90 95 Respiratory Rate 12 12 Blood Pressure 110/70 92/54 L Pulse Oximetry 97 99 Oxygen Delivery Intake/Output Intake/Output: Intake & Output 12/28/23 12/29/23 12/30/23 12/31/23 23:59 23:59 23:59 23:59 Intake Total 1676 Output Total 1800 Balance -124 Meds/Results Medications: Active Medications Generic Name Dose Route Start Last Admin Trade Name Freq PRN Reason Stop Dose Admin Acetaminophen 650 mg 12/30/23 16:30 Acetaminophen 325 Mg Tablet PO Q4H PRN Mild Pain (1-3) or Fever Hydrocodone Bitart/Acetaminophen 1 tab 12/30/23 16:30 12/31/23 17:25 Hydrocodone/Acetaminophen (*Crx) 5-325 Mg Tablet PO 1 tab Q4H PRN Administration Pain Rated 4-6 Alprazolam 0.25 mg 12/30/23 22:42 12/30/23 23:23 Alprazolam (*Crx) 0.25 Mg Tablet PO 0.25 mg BID PRN Administration anxiety Calcium Carbonate 200 mg 12/30/23 22:42 Calcium Carbonate (Tums) 500 Mg (200 Mg Elemental) PO Q6H PRN Acid Reflux
[2023-12-31] MEDS: ROSUVASTATIN 20 MG TABLET PO (21:56)
[2023-12-31] MEDS: MELATONIN 5 MG TABLET PO (21:56)
[2023-12-31] MEDS: ALPRAZolam (*CRX) 0.25 MG TABLET PO (21:57)
[2024-01-01 00:20] LABS: Glucose Point of Care 112 mg/dl (65-105)
[2024-01-01 05:19] VITALS: BP 102/68; PULSE 82; RESP 18; TEMP 36.1; O2SAT 98
[2024-01-01] MEDS: LEVOTHYROXINE SODIUM 50 MCG TABLET PO (05:52)
[2024-01-01 06:03] LABS: Hematocrit 29.3 % (37.0-47.0); Hemoglobin 8.9 g/dL (12.0-15.0); Mean Corpuscular HGB Conc 30.4 g/dl (32-36); Mean Corpuscular Hemoglobin 29.6 pg (26-34); Mean Corpuscular Volume 97.3 fl (80-100); Mean Platelet Volume 8.7 fl (7.4-10.4); Platelet Count Result 273 k/mm3 (150-375); Red Blood Count 3.01 M/mm3 (4.2-5.4); Red Cell Distribution Width 25.5 % (11.5-14.5); White Blood Count 5.2 K/mm3 (4.5-10.0)
[2024-01-01 06:11] LABS: Anion Gap 5 mmol/L (4-12); Blood Urea Nitrogen 20 mg/dL (7-17); Calcium 8.9 mg/dL (8.4-10.2); Carbon Dioxide 24 mmol/L (22-30); Chloride 104 mmol/L (98-107); Estimated CRCL calculation 59 ml/min; Estimated Glomerular Filt Rate > 60; Glucose 116 mg/dL (65-110); Potassium 4.3 mmol/L (3.4-5.0); Sodium 133 mmol/L (137-145)
[2024-01-01 06:52] LABS: Glucose Point of Care 114 mg/dl (65-105)
[2024-01-01 07:36] VITALS: O2SAT 97
[2024-01-01 09:07] VITALS: PULSE 78
[2024-01-01] MEDS: carvediloL 25 MG TABLET PO (09:07)
[2024-01-01] MEDS: SPIRONOLACTONE 50 MG TABLET PO (09:07)
[2024-01-01] MEDS: FLUoxetine HCL 20 MG CAPSULE PO (09:07)
[2024-01-01] MEDS: PANTOPRAZOLE SODIUM IV 40 MG VIAL IV PUSH (09:08)
--- NOTE | 2024-01-01 11:35 | WPDANESPN ---
Anes - Prog Note Post-Op Date/Time: 01/01/24 11:35 Cardiovascular status: normal Respiratory status: normal Airway patency: baseline Mental status: baseline Post-Op hydration status: normal Vital Signs: Last Vital Signs Temp 36.1 C L 01/01/24 05:19 Pulse 78 01/01/24 09:07 Resp 18 01/01/24 05:19 BP 102/68 01/01/24 05:19 Pulse Ox 97 01/01/24 07:36 O2 Del Method Room Air 01/01/24 08:00 FiO2 21 01/01/24 07:36 Pain Score (VAS): 0 I/O: Intake & Output 12/31/23 01/01/24 01/01/24 23:59 07:59 15:59 Intake Total 490 240 360 Output Total 1200 400 Balance -710 -160 360 Laboratory Tests 01/01/24 05:20 01/01/24 05:20 12/31/23 12/31/23 12/31/23 12:21 12:54 15:36 WBC RBC Hgb Hct MCV MCH MCHC RDW Plt Count MPV Sodium Potassium Chloride Carbon Dioxide Anion Gap BUN Creatinine Estim Creat Clear Calc Estimated GFR Glucose POC Capillary Glucose 84 86 196 H Calcium 12/31/23 01/01/24 01/01/24 17:28 00:16 05:18 WBC RBC Hgb Hct MCV MCH MCHC RDW Plt Count MPV Sodium Potassium Chloride Carbon Dioxide Anion Gap BUN Creatinine Estim Creat Clear Calc Estimated GFR Glucose POC Capillary Glucose 157 H 112 H 114 H Calcium 01/01/24 05:20 WBC 5.2 RBC 3.01 L Hgb 8.9 L Hct 29.3 L MCV 97.3 D MCH 29.6 D MCHC 30.4 L RDW 25.5 H Plt Count 273 MPV 8.7 Sodium 133 L Potassium 4.3 Chloride 104 Carbon Dioxide 24 Anion Gap 5 BUN 20 H Creatinine 0.60 L Estim Creat Clear Calc 59 Estimated GFR > 60 Glucose 116 H POC Capillary Glucose Calcium 8.9 Post-procedural complaints: none Patient Feedback: Patient satisfied with anesthetic care.
[2024-01-01 11:38] LABS: Glucose Point of Care 211 mg/dl (65-105)
--- NOTE | 2024-01-01 11:47 | PM.DS ---
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 Status: Acute (4) Atrial fibrillation: Code(s): I48.91 - Unspecified atrial fibrillation Status: Acute (5) Heart failure with preserved ejection fraction: Code(s): I50.30 - Unspecified diastolic (congestive) heart failure Status: Acute (6) Gastro-esophageal reflux disease without esophagitis: Code(s): K21.9 - Gastro-esophageal reflux disease without esophagitis Status: Acute (7) Obstructive sleep apnea on CPAP: Code(s): G47.33 - Obstructive sleep apnea (adult) (pediatric) Status: Acute (8) Type 2 diabetes mellitus without complications: Code(s): E11.9 - Type 2 diabetes mellitus without complications Status: Acute (9) Hypothyroidism: Code(s): E03.9 - Hypothyroidism, unspecified Status: Acute DS: Summary Hospital Course Hospital Course: This is a very pleasant 83-year-old female with history of gastroesophageal reflux disease, Zenker's diverticulum, stroke, atrial fibrillation on chronic anticoagulation, hypertension, dyslipidemia, heart failure with preserved ejection fraction, moderate aortic stenosis, pulmonary embolism, obstructive sleep apnea on CPAP, and type 2 diabetes mellitus who presented to the emergency department via EMS from [facility] for evaluation after she was found to have a low hemoglobin. She is currently at [facility] for rehab following repair of a left femoral fracture done at [place]. She has been doing well and participating in rehab however over the past week or so she has become fatigued and reports having occasional dark, tarry stools which have become more frequent the last couple of days. Labs were drawn and she was found to be anemic and was sent to the ED. With further questioning she does mention mild abdominal bloating and belching. She has not had epigastric or abdominal pain and her GERD are not worse than usual. She denies syncope, near syncope, chest pain, palpitations, shortness of breath, nausea, and vomiting. No history of peptic ulcers. She is quite anxious about holding apixaban given history of strokes. She mentions that she and her ankle patch molder spoke briefly about possible left atrial appendage closure but not formally. In the ED: Vital signs were stable on arrival. Labs are significant for a hemoglobin of 6.6, hematocrit 21.4%, MCV 108.1, INR 1.4, sodium 131, BUN 37, creatinine 0.70, glucose 171. 2 units packed red blood cells were given and was started on IV Protonix. GI was consulted. Underwent EGD on 12/31/2023. EGD showed acute duodenal ulcer duodenitis and gastritis. Minimal risk of rebleeding. Post transfusion H&H was monitored and remained stable. Protonix will be continued for 6 weeks b.i.d. and subsequently down to daily permanently. Avoid NSAIDs and aspirin. Resume anticoagulation 5-7 days. Follow-up with GI. Time Spent with Patient Time attestation: Total time spent providing and/or coordinating discharge services: 35 minutes Exam Narrative: General: Well-developed elderly female supine in bed in no acute distress. HEENT: PERRL, EOMI. Sclera anicteric. Tacky mucous membranes. Neck: Supple. Respiratory: Lungs are clear to auscultation bilaterally. Cardiovascular: Irregularly irregular rate and rhythm. Systolic murmur best heard at the upper sternal border. Gastrointestinal: Abdomen is soft, nontender, and nondistended with positive bowel sounds. Skin: Warm and dry. Generalized pallor. Extremities: No cyanosis, clubbing, or edema. Left hip incision is healing nicely. Neurological: Al
[2024-01-01] MEDS: INSULIN ASPART (*BKC) 100 UNITS/ML SUB-Q (12:39)
[2024-01-01 16:00] VITALS: BP 112/55; PULSE 72; RESP 16; TEMP 36.7; O2SAT 96
[2024-01-01 16:34] LABS: Glucose Point of Care 143 mg/dl (65-105)
[2024-01-01 16:37] LABS: SARS-CoV-2 RNA PCR Negative (Negative)
[2024-01-01] MEDS: INFLUENZA VACCINE HIGH DOSE (>64) 180 MCG/0.5 ML SYRINGE IM (17:31)
== END 2024-01-01 19:01 ==
LOC: ANHED 15:45 → ANHIMU 17:35 → ANH3MED 01-01 11:52 → ANHIMU 01-04 08:09
PROVIDERS: Internal Medicine Gastroenterology; Physician Assistant; Admitting Provider Family Medicine; Emergency Provider Emergency Medicine; PCP Family Medicine; Visit Provider Internal Medicine
PROC: 0DJ08ZZ Inspection of Upper Intestinal Tract, Via Natural or Artificial Opening Endoscopic (ICD-10-PCS; CPT 43235; principal; 2023-12-31 11:30)
DX: K26.0 Acute duodenal ulcer with hemorrhage (principal); K29.51 Unspecified chronic gastritis with bleeding; K29.81 Duodenitis with bleeding; D64.9 Anemia, unspecified; F41.9 Anxiety disorder, unspecified; I48.20 Chronic atrial fibrillation, unspecified; K22.5 Diverticulum of esophagus, acquired; K21.9 Gastro-esophageal reflux disease without esophagitis; F41.1 Generalized anxiety disorder; I50.30 Unspecified diastolic (congestive) heart failure; I35.0 Nonrheumatic aortic (valve) stenosis; E78.2 Mixed hyperlipidemia; E11.9 Type 2 diabetes mellitus without complications; E66.9 Obesity, unspecified; Z68.33 Body mass index [BMI] 33.0-33.9, adult; E03.8 Other specified hypothyroidism; G47.33 Obstructive sleep apnea (adult) (pediatric); Z99.89 Dependence on other enabling machines and devices; Z86.73 Personal history of transient ischemic attack (TIA), and cerebral infarction without residual deficits; Z11.52 Encounter for screening for COVID-19; Z23 Encounter for immunization; Z86.711 Personal history of pulmonary embolism; Z79.01 Long term (current) use of anticoagulants; Z79.84 Long term (current) use of oral hypoglycemic drugs; Z79.899 Other long term (current) drug therapy
CPT/HCPCS: 43239; 36415; 36430; 80048; 80053; 82607; 82728; 82746; 82948; 83036; 83540; 83550; 83735; 84443; 85025; 85027; 85610; 85730; 86850; 86860; 86870; 86880; 86900; 86901; 86902; 86905; 86922; 86971; 86972; 87635; 88305; 90471; 90662; 93005; 94002; 96374; 96375; 97161; 97166; 99285; A9270; G0008; G0378; J1815; J2003; J2470; J2704; J7050; J7120; P9016

== ENCOUNTER 2024-02-10 22:57 | Inpatient (IN) | payer OTHER, SELFPAY ==
--- NOTE | ~2024-02-10 | XR_ITS ---
EXAMINATION: XR shoulder RT min 2V DATE: 02/11/2024 00:25 INDICATION: Right shoulder pain post fall TECHNIQUE: AP internally and externally rotated, AP oblique externally rotated and transscapular Y vi ews of the right shoulder were obtained. COMPARISON: None FINDINGS: Normal alignment at the right shoulder. No fracture.Mild glenohumeral and acromioclavicular osteoart hritis. Mild mid thoracic dextrocurvature with severe spondylosis. Additional severe cervical spondyl osis. Calcified nodules in the right midlung zone consistent with old granulomatous disease. IMPRESSION: Mild right glenohumeral and acromioclavicular osteoarthritis. No acute osseous abnormality. Reviewed, dictated and finalized at location A. BREAKER
--- NOTE | ~2024-02-10 | XR_ITS ---
EXAMINATION: XR hip RT 2V w AP pelvis DATE: 02/11/2024 00:25 INDICATION: Right hip pain post fall TECHNIQUE: Anteroposterior view of the pelvis and anteroposteriorfracture and frog-leg lateral views of the right hip were obtained. COMPARISON: CT dated 03/21/2021 FINDINGS: Alignment is normal. No acute fracture. Lateral leg screws with femoral neck dynamic compression scre w fixation at the proximal left femur. Mild bilateral hip and sacroiliac osteoarthritis. Severe lumba r spondylosis with anterior fusion at L5-S1 better appreciated on prior CT. Multiple phleboliths in t he pelvis. IMPRESSION: 1. No acute osseous abnormality. Reviewed, dictated and finalized at location A. INE OPERATOR
--- NOTE | ~2024-02-10 | XR_ITS ---
XR chest 1V portable DATE: 02/13/2024 05:25 INDICATION: Congestive heart failure TECHNIQUE: Portable AP chest at 02/13/2024 at 0507 hours COMPARISON: 02/03/2024 CT chest abdomen pelvis 02/11/2024 portable AP chest at 0058 hours FINDINGS: There is enlargement of the cardiac silhouette consistent with cardiomegaly and small peric ardial effusion demonstrated on 02/03/2024 CT chest examination. There is aortic arch calcification. There are scattered focal areas of mild infiltrate and/or atelectasis of the lungs. No pleural effusion or pulmonary vascular congestion or pneumothorax is evident. Prominent diffuse osteopenia. IMPRESSION: Scattered mild areas of infiltrate and/or atelectasis of the lungs Cardiomegaly, small pericardial effusion Aortic atherosclerosis Osteopenia Reviewed, dictated and finalized at location A. ULAR SAWYER HELPER
--- NOTE | ~2024-02-10 | XR_ITS ---
EXAM: [id number] DATE: 02/13/2024 13:29 HISTORY: left knee pain . COMPARISON: None available. FINDINGS: Decreased mineralization. Extensive revision the arthroplasty hardware. No hardware fractu re or abnormal perihilar hardware lucency. No fracture or dislocation. No lytic or blastic lesion. Mariana int spaces and physes are maintained. No erosion or periosteal change. Soft tissues within normal richardson its. IMPRESSION: No acute osseous finding in the left knee. No radiographic evidence of hardware related c omplication. Reviewed, dictated and finalized at location K. WORK CIGAR MACHINE OPERATOR IMPRESSION: No acute osseous finding in the left knee. No radiographic evidence of hardware related complication.
--- NOTE | ~2024-02-10 | CT_ITS ---
EXAMINATION: CT brain wo con DATE: 02/11/2024 00:01 INDICATION: Fall with head injury TECHNIQUE: Computed tomography (CT) of the head was performed without intravenous contrast. Sagittal and coronal reconstructions were performed. The mA was adjusted according to patient size. Iterative reconstruction technique was employed. The dose-length product was 681.00 mGy-cm. COMPARISON: head CT dated 05/21/2019 FINDINGS: No fracture. Unchanged moderate-sized region of left parieto-occipital encephalomalacia consistent wi th chronic infarct. Additional moderate-sized region of encephalomalacia at the insula, anterior righ t temporal lobe and immediately adjacent right frontal lobe consistent with additional chronic infarc t, new since the prior study. No acute intracranial hemorrhage, acute infarction or abnormal extra ax ial fluid collection. There is additional mild to moderate scattered white matter hypoattenuation con sistent with chronic small vessel ischemic disease. Symmetric prominence of the sulci consistent with moderate age-appropriate diffuse cerebral volume loss. Ventricles are normal and symmetric. No mass/ mass effect. Changes of bilateral intraocular lens replacement. The orbits, paranasal sinuses and mas toid air cells are normal. IMPRESSION: 1. No fracture or acute intracranial process. 2. Moderate-sized old infarcts in the left posterior cerebral and right middle cerebral artery vascul ar distributions. 3. Age-related changes including moderate diffuse volume loss and mild to moderate scattered white ma tter hypoattenuation consistent with chronic small vessel ischemic disease. Reviewed, dictated and finalized at location A. NSION SERVICE SPECIALIST IMPRESSION: 1. No fracture or acute intracranial process. 2. 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 3. Age-related changes including moderate diffuse volume loss and mild to moder ate scattered white matter hypoattenuation consistent with chronic small vessel ischemic disease.
--- NOTE | ~2024-02-10 | CT_ITS ---
EXAMINATION: CT cervical spine wo con DATE: 02/11/2024 00:02 INDICATION: Fall with head injury TECHNIQUE: Computed tomography (CT) of the cervical spine was performed without intravenous contrast. Automated exposure control and iterative reconstruction technique were employed. The dose-length pro duct was 534.01 mGy-cm. COMPARISON: None FINDINGS: Straightening of the normal cervical lordosis. There is 2 mm anterolisthesis C2 on C3 and C7 on T1. 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 Vertebral body heights are normal. No acute fr acture. Severe disc height loss with severe associated uncovertebral osteoarthritis at C3-C4 through C6-C7. Moderate disc height loss at C7-T1, T2-T3 and T3-T4 and mild disc height loss at C2-C3 and T1- T2. There is also moderate to severe multilevel bilateral cervical and upper thoracic facet osteoarth ritis. There is multilevel mild central canal stenosis from C3-C4 through C6-C7. Moderate neural fora reggie stenosis on the left at C3-C4 and C6-C7 and bilaterally at C4-C5 used, C5-C6 with mild neural f oraminal stenosis at the remaining cervical levels. Atherosclerotic calcifications at the bilateral c ommon carotid arteries and carotid bulbs. Cervical soft tissues are unremarkable. Smooth septal line thickening at the bilateral upper lungs consistent with mild pulmonary edema. IMPRESSION: 1. Severe cervical spondylosis. No acute osseous abnormality. 2. Mild pulmonary edema in the visualized upper lungs. Reviewed, dictated and finalized at location A. AIMED PROPERTY OFFICER
--- NOTE | ~2024-02-10 | XR_ITS ---
EXAM: XR tibia fibula LT 2V DATE: 02/13/2024 13:29 HISTORY: knee/leg pain . COMPARISON: 05/21/2019. FINDINGS: Near the posterior hardware. Decreased mineralization. No fracture or dislocation. No lyti c or blastic lesion. Degenerative changes in the left ankle. No erosion or periosteal change. Soft ti ssues within normal limits. IMPRESSION: No acute osseous finding in the left tibia/fibula. Reviewed, dictated and finalized at location K. MACHINE OPERATOR
--- NOTE | ~2024-02-10 | XR_ITS ---
EXAMINATION: XR chest 1V portable DATE: 02/11/2024 01:01 INDICATION: Back pain post fall and cough TECHNIQUE: frontal view of the chest was obtained. COMPARISON: Chest radiograph dated 09/04/2020 FINDINGS: Large calcified nodule in the right midlung zone consistent with old granulomatous disease. Diffuse m ild increased interstitial pattern consistent with mild pulmonary edema. No pleural effusion or pneum othorax. Cardiomegaly. Mild thoracic dextrocurvature with severe spondylosis. IMPRESSION: 1. Cardiomegaly with mild pulmonary edema. Reviewed, dictated and finalized at location A. ITY ASSURANCE LAB TECHNICIAN
--- NOTE | ~2024-02-10 | CT_ITS ---
EXAMINATION: CT chest abdomen pelvis wo con DATE: 02/11/2024 01:25 INDICATION: Back, rib and hip pain post fall TECHNIQUE: Computed tomography (CT) of the chest, abdomen, and pelvis was performed without intraveno us contrast. Automated exposure control and iterative reconstruction technique were employed. The dos e-length product was 1215.08 mGy-cm. COMPARISON: None FINDINGS: CHEST CT: Calcified right upper lobe nodules consistent with old granulomatous disease. Scattered smooth septal line thickening throughout both lungs most prominent at the upper lung zones with mild groundglass o pacity in the right upper lung zone consistent with mild pulmonary edema. Mild dependent atelectasis in bilateral lower lobes. No pleural effusion or pneumothorax. Cardiomegaly with biatrial enlargement . Small pericardial effusion. Atherosclerotic coronary artery calcifications. Aortic valve calcificat ion. Coarse calcifications at the bilateral thyroid lobes. Atherosclerotic calcification along the no rmal caliber aorta and great vessels arising from the arch. No pathologically enlarged thoracic lymph adenopathy. Mild thoracic dextrocurvature with severe spondylosis. There is additional severe cervica l spondylosis. No acute fracture. ABDOMEN/PELVIS CT: Chronic dilation of the common bile duct to 12 mm and mild central intrahepatic biliary ductal dilati on which may be related to prior with cholecystectomy with sphincterotomy with no visualized gallblad hasmukh. Spleen, pancreas and right adrenal gland are normal. Unchanged nodular thickening of the left ad renal gland which given the interval stability is most consistent with an adenoma. There are bilatera l renal cysts measuring up to 3.8 cm on the right and 3.3 cm on the left. Bilateral nonobstructing ne phrolithiasis with 4 stones measuring up to 4-5 mm at the left kidney and a 3 mm stone at the lower p ole the right kidney. There is mild colonic diverticulosis with a sigmoid predominance. There is no a djacent inflammatory change to suggest diverticulitis. No bowel obstruction. Bladder is normal. The uterus is not identified and has likely been surgically resected. Numerous phleboliths in the pelvis. No free intraperitoneal gas or fluid. No pathologically enlarged abdominal or pelvic lymphadenopath y. Severe lumbar spondylosis with chronic superior endplate compression fracture at L1 which is uncha nged since prior study. Anterior fusion at L5-S1. Lateral plate and screw and femoral neck dynamic co mpression screw fixation at the proximal femur for old healed intratrochanteric fracture. IMPRESSION: 1. No acute fracture or evident visceral organ injury in the chest, abdomen or pelvis. 2. Congestive heart failure with cardiomegaly and mild pulmonary edema. 3. Bilateral nonobstructing nephrolithiasis. 4. Mild diverticulosis. Reviewed, dictated and finalized at location A. D AUTOMOBILE ADJUSTER
[2024-02-10 22:57] VITALS: BP 144/102; PULSE 109; RESP 15; TEMP 36.8; O2SAT 92
[2024-02-10 23:45] VITALS: BP 143/85; PULSE 105; RESP 15; O2SAT 95
[2024-02-11] VITALS (19 sets, daily range): BP systolic 98–148; BP diastolic 72–105; PULSE 76–133; RESP 14–18; TEMP 36.3–36.9; O2SAT 92–95; BMI 34.9; BMI 35.2
--- NOTE | 2024-02-11 01:04 | ED.GENADULT ---
HPI - General Adult General Chief complaint: Fall Stated complaint: FALL, RT SHOULDER, HIP, & HEAD PAIN. Time Seen by Provider: 02/11/24 00:12 History of Present Illness HPI narrative: patient 84-year-old female presents emergency department with chief complaint of fall patient reports that she was walking with her walker got tangled up and fell the ground the patient reports she struck her head reports that she had her back reports pain in her right shoulder and right hip the patient reports that pain with movement reports that she had no loss of consciousness but does report that she takes an anticoagulant. Patient reports a she has late on the stretcher since the fall she reports that she started to have pain in her upper back and also in her flank Related Data Home Medications Medication Instructions Recorded Confirmed carvedilol 25 mg tablet 25 mg PO BID 01/18/19 02/01/24 apixaban 5 mg tablet (Eliquis) 5 mg PO BID 06/28/19 02/01/24 rosuvastatin 20 mg tablet 20 mg PO HS 12/14/19 02/01/24 cholecalciferol (vitamin D3) 25 50 mcg PO DAILY 05/12/22 02/01/24 mcg (1,000 unit) capsule fluoxetine 20 mg capsule 20 mg PO DAILY 05/12/22 02/01/24 glipizide 10 mg tablet 10 mg PO BID 05/12/22 02/01/24 spironolactone 25 mg tablet 50 mg PO DAILY 05/12/22 02/01/24 acetaminophen 500 mg tablet 1,000 mg PO Q6H PRN Pain (Scale 12/30/23 02/01/24 Score 1-3) calcium carbonate (Tums) 200 mg PO Q6H PRN Acid Reflux 12/30/23 02/01/24 melatonin 5 mg tablet 5 mg PO HS 12/30/23 02/01/24 metformin 500 mg tablet 500 mg PO BIDWMEAL 12/30/23 02/01/24 methocarbamol 500 mg tablet 500 mg PO TID 12/30/23 02/01/24 polyethylene glycol 3350 17 gram 17 g PO DAILY 12/30/23 02/01/24 oral powder packet (Miralax) sennosides 8.6 mg tablet (senna) 8.6 mg PO DAILY PRN Constipation 12/30/23 02/01/24 Allergies Allergy/AdvReac Type Severity Reaction Status Date / Time lisinopril Allergy Severe cough Verified 02/01/24 15:43 amlodipine Allergy Difficulty Verified 02/01/24 15:43 Breathing MILI Inhibitors AdvReac Severe cough Verified 02/01/24 15:43 atorvastatin AdvReac Mild Muscle Pain Verified 02/01/24 15:43 citalopram AdvReac Mild Unknown Verified 02/01/24 15:43 hydrochlorothiazide AdvReac Dizziness Verified 02/01/24 15:43 Review of Systems Review of Systems: A 10 system review of systems was completed on the patient and is negative except for what is stated in the HPI. Nursing and ancillary documentation was reviewed. 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) Subclinical hypothyroidism Type 2 diabetes mellitus without complications Zenkers diverticulum Surgical History Surgical History History of cholecystectomy History of hip surgery History of hysterectomy History of open reduction and internal fixation (ORIF) procedure repair left femur fracture History of tonsillectomy Family History Family History Father Family history of coronary artery disease Family history of cardiovascular disease Mother Family history of coronary artery disease Family history of cardiovascular disease Social History Social History Social History: Surrogate medical decision maker: Homer Culp, son. Code status: Full code. Smoking status: Never smoker Second hand tobacco smoke exposure: No Alcohol intake: never Substance use: never Substance use type: does not use Do You Feel Safe in your Home?: Yes Lack of Transportation: YES Lack of Food: Never True Current Housing: I Have Housing Concerned About Future Housing: No Difficulty Paying Gas/Electric Bills: YES Difficulty Paying for Meds: YES Currently Unemployed: No Education: Grade School Difficulty w/ Childcare or Family Care: No Spiritual care concerns: No Exam Narrative: GENERAL: Well-appearing, well-nourished, and in no acute distress. HEAD: Normocephalic, atraumatic. EYES: PERRLA and EOMI. ENT: Nares clear, no rhinorrhea or epistaxis. Mucous membranes moist. NECK: Supple. CHEST: Clear to auscultation. No respiratory distress. HEART: Regular rate and rhythm. No murmur heard. Normal peripheral pulses. ABDOMEN: Soft, nontender, nondistended, normal active bowel sounds. EXTREMITIES: Normal range of motion. No edema. SKIN: Warm, dry, no rash. NEURO: No focal deficits. Alert and oriented x3. PSYCH: Normal mood and affect. Course Vital Signs Vital signs: Vital Signs Temperature 36.8 C 02/10/24 22:57 Pulse Rate 109 H 02/10/24 22:57 Respiratory Rate 15 02/10/24 22:57 Blood Pressure 144/102 H 02/10/24 22:57 Pulse Oximetry 92 02/10/24 22:57 Oxygen Delivery Room Air 02/10/24 22:57 Temperature 36.8 C 02/10/24 22:57 Pulse Rate 100 02/11/24 06:02 Respiratory Rate 16 02/11/24 06:02 Blood Pressure 137/87 02/11/24 06:02 Pulse Oximetry 95 02/11/24 06:02 Oxygen Delivery Room Air 02/10/24 22:57 Medical Decision Making [facility] Narrative Medical decision making narrative: differential diagnosis includes head injury, cervical spine fracture, chest abdomen pelvis injury, patient is on anticoagulants, plain film x-rays right shoulder and right hip were obtained showed no evidence of fracture. CT scan of the head C-spine and chest abdomen pelvis were obtained showed no acute abnormality the patient was having difficulty with ambulation due to pain. The scan showed no evidence of fracture but given the patient's pain the patient did have increase in heart rate and went into rapid ventricular response the patient was given IV metoprolol which has improved the heart rate labs were ordered and her magnesium was found to be 1.2. Magnesium was replaced with 4 g of IV magnesium the case was discussed with the hospitalist for admission for observation Vital Signs Vital Signs: Vital Signs Temperature 36.8 C 02/10/24 22:57 Pulse Rate 109 H 02/10/24 22:57 Respiratory Rate 15 02/10/24 22:57 Blood Pressure 144/102 H 02/10/24 22:57 Pulse Oximetry 92 02/10/24 22:57 Oxygen Delivery Room Air 02/10/24 22:57 Temperature 36.8 C 02/10/24 22:57 Pulse Rate 100 02/11/24 06:02 Respiratory Rate 16 02/11/24 06:02 Blood Pressure 137/87 02/11/24 06:02 Pulse Oximetry 95 02/11/24 06:02 Oxygen Delivery Room Air 02/10/24 22:57 Lab Data 02/11/24 04:27 02/11/24 04:27 Labs: Lab Results 02/11/24 02/11/24 Range/Units 04:27 04:48 WBC 7.5 (4.5-10.0) K/mm3 RBC 3.35 L (4.2-5.4) M/mm3 Hgb 9.8 L (12.0-15.0) g/dL Hct 31.5 L (37.0-47.0) % MCV 94.0 (80-100) fl MCH 29.3 (26-34) pg MCHC 31.1 L (32-36) g/dl RDW 17.6 H (11.5-14.5) % Plt Count 257 (150-375) k/mm3 MPV 9.8 (7.4-10.4) fl Immature Gran % (Auto) 0.5 (0-0.5) % Neut % (Auto) 72.0 (45.5-73.1) % Lymph % (Auto) 17.0 L (18.3-44.2) % Adams % (Auto) 9.0 H (2.6-8.5) % Eos % (Auto) 1.2 (0-4.4) % Baso % (Auto) 0.3 (0.2-1.2) % Lymph # (Auto) 1.28 (0.9-3.2) K/mm3 Adams # (Auto) 0.7 H (0.1-0.6) K/mm3 Eos # (Auto) 0.1 (0-0.3) K/mm3 Baso # (Auto) 0.0 (0.0-0.1) K/mm3 Abs Immat Gran (auto) 0.04 H (0.00-0.031) K/mm3 Absolute Neuts (auto) 5.4 (1.3-6.7) K/mm3 Absolute Nucleated RBC 0.000 (0.0-0.012) K/mm3 Nucleated RBC % 0.0 (0.0-0.2) % Sodium 137 (137-145) mmol/L Potassium 4.2 (3.4-5.0) mmol/L Chloride 100 (98-107) mmol/L Carbon Dioxide 26 (22-30) mmol/L Anion Gap 11 (4-12) mmol/L BUN 22 H (7-17) mg/dL Creatinine 0.60 L (0.7-1.0) mg/dL Estim Creat Clear Calc 62 ml/min Estimated GFR > 60 (59 - ) Glucose 149 H (65-110) mg/dL Lactic Acid 1.4 (0.7-2.0) mmol/L Calcium 9.8 (8.4-10.2) mg/dL Magnesium 1.2 L (1.6-2.3) mg/dL Total Bilirubin 0.7 (0.2-1.3) mg/dL AST 23 (14-36) U/L ALT 20 (6-35) U/L Alkaline Phosphatase 88 (38-126) U/L Troponin I 0.021 (0.000-0.034) ng/mL Total Protein 7.0 (6.3-8.2) g/dL Albumin 3.9 (3.5-5.1) g/dL Urine Color Yellow (Yellow) Urine Appearance Clear (Clear) Urine pH 5.0 (5.0-9.0) Ur Specific [place] 1.011 (1.001-1.035) Urine Protein Negative (Negative) mg/dL Urine Glucose (UA) Negative (Negative) mg/dL Urine Ketones Negative (Negative) mg/dL Ur Blood (Man) Negative (Negative) Urine Nitrate Positive H (Negative) Urine Bilirubin Negative (Negative) Urine Urobilinogen 0.2 (<2.0) mg/dL Leukocyte Esterase Rfl Trace H (Negative) AYDEN/UL Urine RBC 0-2 (0-2) /hpf Urine WBC 6-10 H (0-3) /hpf Ur Squamous Epith Cells None seen (Few) /hpf Urine Bacteria 4+ H /hpf Urine Casts 0-2 Discharge Plan Discharge Clinical Impression: Fall from ground level, Head injury, Contusion of right shoulder, Contusion of right hip, Back pain, Atrial fibrillation with rapid ventricular response, Hypomagnesemia Patient Disposition: Still a Patient Condition: Stable Instructions: Antibiotic Form, Head Injury (ED), Contusion in Adults (ED) Prescriptions: No Action glipizide 10 mg tablet 10 mg PO BID spironolactone 25 mg tablet 50 mg PO DAILY fluoxetine 20 mg capsule 20 mg PO DAILY cholecalciferol (vitamin D3) 25 mcg (1,000 unit) Capsule 50 mcg PO DAILY lidocaine [Lidoderm] 5 % adhesive patch,medicated 1 patch topical DAILY Qty: 15 0RF Patient Comments: apply to lower back Rx Instructions: leave on most painful area for up to 12 hrs Eliquis 5 mg tablet 5 mg PO BID Hold Instructions: Resume on 01/06/24. carvedilol 25 mg tablet 25 mg PO BID rosuvastatin 20 mg tablet 20 mg PO HS acetaminophen 500 mg Tablet 1,000 mg PO Q6H PRN (Reason: Pain (Scale Score 1-3)) polyethylene glycol 3350 [Miralax] 17 gram Powder In Packet 17 g PO DAILY methocarbamol 500 mg tablet 500 mg PO TID metformin 500 mg Tablet 500 mg PO BIDWMEAL sennosides [senna] 8.6 mg Tablet 8.6 mg PO DAILY PRN (Reason: Constipation) calcium carbonate [Tums] 200 mg calcium (500 mg) Tablet,Chewable 200 mg PO Q6H PRN (Reason: Acid Reflux) melatonin 5 mg Tablet 5 mg PO HS pantoprazole [Protonix] 40 mg tablet,delayed release (DR/EC) 40 mg PO BID Qty: 60 0RF levothyroxine [Synthroid] 25 mcg tablet 50 mcg PO DAILY Qty: 180 1RF Follow-up/Referrals: Chava,[place] Neal MD [Primary Care Provider] - Time of Disposition: 02:29
[2024-02-11] MEDS: MORPHINE SULFATE (*CRX) 2 MG/ML INJ IV PUSH (01:07)
[2024-02-11] MEDS: MORPHINE SULFATE (*CRX) 4 MG/ML INJ 2 MG IV PUSH (03:07)
--- NOTE | 2024-02-11 04:18 | ECG_ITS ---
Test Date: 2024-02-11 04:33:36 Measurements Intervals [place] Rate: 119 P: 0 MI: 0 QRS: 83 QRSD: 99 T: 41 QT: 333 QTc: 470 Interpretive Statements ATRIAL FIBRILLATION WITH RAPID VENTRICULAR RESPONSE MINIMAL Q WAVES- INFERIOR LEADS ABNORMAL ECG Compared to ECG 12/30/2023 14:20:40 HEART RATE HAS INCREASED Electronically Signed On 02-11-2024 07:19:49 PRIVATE DUTY AIDE by Kali Webber D.O.
[2024-02-11 04:35] LABS: Basophils Percent Auto 0.3 % (0.2-1.2); Eosinophils Absolute Auto 0.1 K/mm3 (0-0.3); Eosinophils Percent Auto 1.2 % (0-4.4); Hematocrit 31.5 % (37.0-47.0); Hemoglobin 9.8 g/dL (12.0-15.0); Immature Granulocyte Absolute 0.04 K/mm3 (0.00-0.031); Immature Granulocyte Percent A 0.5 % (0-0.5); Lymphocytes Absolute Auto 1.28 K/mm3 (0.9-3.2); Mean Corpuscular HGB Conc 31.1 g/dl (32-36); Mean Corpuscular Hemoglobin 29.3 pg (26-34); Mean Platelet Volume 9.8 fl (7.4-10.4); Monocytes Absolute Auto 0.7 K/mm3 (0.1-0.6); Neutrophils Absolute Auto 5.4 K/mm3 (1.3-6.7); Platelet Count Result 257 k/mm3 (150-375); Red Blood Count 3.35 M/mm3 (4.2-5.4); Red Cell Distribution Width 17.6 % (11.5-14.5); White Blood Count 7.5 K/mm3 (4.5-10.0)
[2024-02-11] MEDS: METOPROLOL TARTRATE INJ 5 MG/5 ML VIAL IV PUSH ×2 (04:44→14:56)
[2024-02-11 05:00] LABS: Add Urine Microscopic? YES; Appearance Urine Clear (Clear); Bacteria Urine 4+ /hpf; Bilirubin Urine Negative (Negative); Blood Urine Negative (Negative); Color Urine Yellow (Yellow); Glucose Urine UA Negative (Negative); Ketones Urine Negative (Negative); Leukocyte Esterase Ur Trace LEU/UL (Negative); Nitrate Urine Positive (Negative); Non Pathogenic Casts 0-2; Protein Urine Negative (Negative); RBC Urine 0-2 /hpf (0-2); Specific Grav Ur 1.011 (1.001-1.035); Squamous Epithelial Cell Urine None Seen /hpf (Few); Urobilinogen Urine 0.2 mg/dL (<2.0)
--- NOTE | 2024-02-11 05:10 | PC.NURSE ---
Upon having pt sit and stand up. Pt complains of sob and pain with inspiration. EDP made aware.
[2024-02-11 05:17] LABS: Magnesium 1.2 mg/dL (1.6-2.3)
[2024-02-11 05:18] LABS: Alanine Aminotransferase 20 U/L (6-35); Albumin Level 3.9 g/dL (3.5-5.1); Alkaline Phosphatase 88 U/L (38-126); Anion Gap 11 mmol/L (4-12); Aspartate Amino Transferase 23 U/L (14-36); Bilirubin,Total 0.7 mg/dL (0.2-1.3); Blood Urea Nitrogen 22 mg/dL (7-17); Calcium 9.8 mg/dL (8.4-10.2); Carbon Dioxide 26 mmol/L (22-30); Chloride 100 mmol/L (98-107); Estimated CRCL calculation 62 ml/min; Estimated Glomerular Filt Rate > 60; Glucose 149 mg/dL (65-110); Potassium 4.2 mmol/L (3.4-5.0); Sodium 137 mmol/L (137-145)
[2024-02-11 05:19] LABS: Lactic Acid Reflex 1.4 mmol/L (0.7-2.0)
[2024-02-11 05:29] LABS: Troponin I 0.021 ng/mL (0.000-0.034)
[2024-02-11] MEDS: MAGNESIUM SULF 4 GM/WATER100ML 4 GM/100 ML BAG IVPB (06:19)
[2024-02-11] MEDS: carvediloL 25 MG TABLET PO ×2 (06:39→20:48)
[2024-02-11] MEDS: HYDROmorphone HCL INJ (*CRX) 1 MG/ML SYR 0.5 MG IV PUSH (06:39)
--- NOTE | 2024-02-11 08:15 | P.HP_ITS ---
H&P: HPI History of Present Illness Date/Time: 02/11/24 08:15 Chief Complaint: Fall Narrative: This is an 84-year-old female with past medical history is significant for anxiety, atrial fibrillation, GERD, CHF, hyperlipidemia, AYAD on CPAP, hypothyroidism, and type 2 diabetes who presents the emergency room after suffering a ground level fall. The patient provides the following history. The patient lives at [facility] and is currently in respite care after recent fall he following repair of left femoral fracture done at [place]. She was recently admitted to this hospital and discharged on 12/31 with symptomatic anemia and found to have duodenal ulcer, duodenitis, and gastritis. During that admission she received 2 units of packed red blood cells and was started on Protonix 40 mg b.i.d. for 6 weeks with daily Protonix 40 mg indefinitely. She reports over the last few days she has been experiencing urinary frequency and was concerned she had a urinary tract infection. She was waiting for staff to, sister to the restroom but she could not wait any longer so she independently ambulated to the restroom with her Rollator. When she was turning she got caught in her walker her air and lost her balance causing her to full and strike her head. She denies loss of consciousness. EMS was dispatched patient was transported to the emergency room for further evaluation. In the emergency labs showed a normal white count 7.5, hemoglobin 9.8, glucose 149, and magnesium is 1.2. Urinalysis collected and showed positive nitrates, trace leukocytes, wbc's 6-10, and 4+ bacteria. CT head showed no acute fracture intracranial process with moderate-sized old infarct in the left posterior cerebral and right middle cerebral arteries as well as age-related changes with [id number] white matter hypoattenuation consistent with chronic small- vessel ischemic disease. CT cervical spine shows severe cervical spondylosis but no acute osseous abnormality. Right hip, pelvis, and shoulder x-ray were negative for fracture. Chest x-ray shows cardiomegaly with pulmonary edema. CT abdomen pelvis showed no acute fracture or visceral organ injury to the chest abdomen or pelvis with congestive heart failure findings of cardiomegaly and mild pulmonary edema, as well as bilateral nonobstructing nephrolithiasis, and mild diverticulosis. UA reflexed to culture. She received 2 doses of morphine 4 mg IV push for pain, magnesium 4 g IV piggyback, as well as a 1 time push of metoprolol tartrate 5 mg and carvedilol 25 mg p.o for AFib RVR heart rate of 133. She was admitted in this setting to the IMU with cardiac monitoring and treatment of urinary tract infection. 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) Subclinical hypothyroidism Type 2 diabetes mellitus without complications Zenkers diverticulum Surgical History Surgical History History of cholecystectomy History of hip surgery History of hysterectomy History of open reduction and internal fixation (ORIF) procedure repair left femur fracture History of tonsillectomy Family History Family History Father Family history of cardiovascular disease Family history of coronary artery disease Depression Mother Family history of cardiovascular disease Family history of coronary artery disease Grandparent Cerebrovascular accident Social History Social History (Updated 02/11/24 @ 14:07 by Molly Weiss APRN) Social History: Surrogate medical decision maker: Homer Culp, son. Code status: DNR She is and lost a son a few years ago. Smoking status: Never smoker Second hand tobacco smoke exposure: No Alcohol intake: never Substance use: never Substance use type: does not use Do You Feel Safe in your Home?: Yes Lack of Transportation: No Lack of Food: Never True Current Housing: I Have Housing Concerned About Future Housing: No Difficulty Paying Gas/Electric Bills: No Difficulty Paying for Meds: No Currently Unemployed: No Education: Grade School Difficulty w/ Childcare or Family Care: No Occupation/Education: retired Spiritual care concerns: No Meds Home Medications and Allergies Home Medications Medication Instructions Recorded Confirmed Type carvedilol 25 mg tablet 25 mg PO BID 01/18/19 02/11/24 History apixaban 5 mg tablet (Eliquis) 5 mg PO Q12H 06/28/19 02/11/24 History rosuvastatin 20 mg tablet 20 mg PO HS 12/14/19 02/11/24 History levothyroxine 25 mcg tablet 50 mcg PO DAILY #180 tabs 04/27/20 02/11/24 Rx (Synthroid) cholecalciferol (vitamin D3) 25 50 mcg PO DAILY 05/12/22 02/11/24 History mcg (1,000 unit) capsule fluoxetine 20 mg capsule 40 mg PO DAILY 05/12/22 02/11/24 History glipizide 10 mg tablet 10 mg PO BID 05/12/22 02/11/24 History spironolactone 25 mg tablet 50 mg PO DAILY 05/12/22 02/11/24 History lidocaine 5 % topical patch 1 patch topical DAILY #15 ea 10/04/22 02/11/24 Rx (Lidoderm) acetaminophen 500 mg tablet 1,000 mg PO Q6H PRN Pain (Scale 12/30/23 02/11/24 History Score 1-3) calcium carbonate (Tums) 400 mg PO Q6H PRN Acid Reflux 12/30/23 02/11/24 History metformin 500 mg tablet 500 mg PO BIDWMEAL 12/30/23 02/11/24 History methocarbamol 500 mg tablet 500 mg PO TID 12/30/23 02/11/24 History baclofen 5 mg tablet 5 mg PO HS 02/11/24 02/11/24 History ondansetron 4 mg disintegrating 4 mg PO TID PRN Nausea And Vomiting 02/11/24 02/11/24 History tablet oxycodone 5 mg tablet 5 mg PO Q4-5H PRN Pain (Scale 02/11/24 02/11/24 History Score 4-6) pantoprazole 40 mg tablet,delayed 40 mg PO BID 02/11/24 02/11/24 History release (Protonix) Allergies Allergy/AdvReac Type Severity Reaction Status Date / Time lisinopril Allergy Severe cough Verified 02/01/24 15:43 amlodipine Allergy Difficulty Verified 02/01/24 15:43 Breathing MILI Inhibitors AdvReac Severe cough Verified 02/01/24 15:43 atorvastatin AdvReac Mild Muscle Pain Verified 02/01/24 15:43 citalopram AdvReac Mild Unknown Verified 02/01/24 15:43 hydrochlorothiazide AdvReac Dizziness Verified 02/01/24 15:43 Vital Signs Vital Signs - 24 hr 02/10/24 22:57 02/10/24 23:45 02/11/24 03:29 Temperature 98.2 F Pulse Rate 109 H 105 H 122 H Respiratory Rate 15 15 15 Blood Pressure 144/102 H 143/85 H 131/105 H Pulse Oximetry 92 95 93 Oxygen Delivery Room Air 02/11/24 02:00 02/11/24 04:44 02/11/24 06:02 Temperature Pulse Rate 109 H 133 H 100 Respiratory Rate 15 16 Blood Pressure 148/95 H 137/87 Pulse Oximetry 92 95 Oxygen Delivery 02/11/24 06:39 02/11/24 07:32 Temperature Pulse Rate 123 H 91 Respiratory Rate 14 Blood Pressure 128/72 Pulse Oximetry 92 Oxygen Delivery Exam Narrative: General: appears comfortable, in no acute distress Respiratory: breathing is unlabored with even chest rise/fall, lungs are clear without wheezing, rhonchi, and crackles Cardiovascular: irregular rate and rhythm, normal s1s2, no murmur Abdomen: Soft, round, non-tender, active bowel sounds Extremities: No cyanosis, edema, clubbing. Pulses 2/2 Neuro: A&O x 4 Skin: Warm, dry, intact H&P: Results Labs Labs: Short CBC 02/11/24 Range/Units 04:27 WBC 7.5 (4.5-10.0) K/mm3 Hgb 9.8 L (12.0-15.0) g/dL Hct 31.5 L (37.0-47.0) % Plt Count 257 (150-375) k/mm3 [facility] 02/11/24 04:27 Sodium 137 Potassium 4.2 Chloride 100 Carbon Dioxide 26 BUN 22 H Creatinine 0.60 L Glucose 149 H Calcium 9.8 Cardiac Enzymes 02/11/24 Range/Units 04:27 Troponin I 0.021 (0.000-0.034) ng/mL Liver Function 02/11/24 Range/Units 04:27 Total Bilirubin 0.7 (0.2-1.3) mg/dL AST 23 (14-36) U/L ALT 20 (6-35) U/L Alkaline Phosphatase 88 (38-126) U/L Albumin 3.9 (3.5-5.1) g/dL Urine 02/11/24 Range/Units 04:48 Urine Color Yellow (Yellow) Urine Appearance Clear (Clear) Urine pH 5.0 (5.0-9.0) Ur Specific Winnie 1.011 (1.001-1.035) Urine Protein Negative (Negative) mg/dL Urine Glucose (UA) Negative (Negative) mg/dL Assessment and Plan Assessment and plan (1) Fall from ground level: Code(s): W18.30XA - Fall on same level, unspecified, initial encounter Status: Acute Assessment and Plan: Ground level fall with no acute fracture. Patient is having significant pain despite normal radiograph. * Activity up with assistance, up to chair * PT and OT were consulted * Tylenol, Glouster 5 or 10 mg every 4 hours based on pain scale, Dilaudid for breakthrough pain. Morphine apparently did not help her pain in the emergency room. * Bowel regimen with MiraLAX and senna * Fall precautions (2) Atrial fibrillation with rapid ventricular response: Code(s): I48.91 - Unspecified atrial fibrillation Status: Acute Assessment and Plan: Patient has a history of atrial fibrillation on carvedilol 25 mg b.i.d. and Eliquis 5 mg b.i.d.. Usually she is rate controlled in a-fib but went into RVR in the ED requiring metoprolol 5 mg IVP and received her carvedilol 25 mg p.o.. Heart rate improved to 90s. * Telemetry ordered * Resume Coreg, resume Eliquis * Correct electrolyte imbalance (3) Hypomagnesemia: Code(s): E83.42 - Hypomagnesemia Status: Acute Assessment and Plan: Magnesium was 1.2 on admission * Received 4 mg magnesium replacement * Repeat BMP at noon (4) Hypothyroidism: Code(s): E03.9 - Hypothyroidism, unspecified Status: Acute Assessment and Plan: History of hypothyroidism on levothyroxine 50 mcg daily. * Will check TSH given AFib RVR * Resume levothyroxine (5) Type 2 diabetes mellitus without complications: Code(s): E11.9 - Type 2 diabetes mellitus without complications Status: Acute Assessment and Plan: History of diabetes on glipizide 10 mg b.i.d., metformin 500 mg b.i.d. * Holding oral anti diabetics while inpatient * Moderate dose SSI correction based off of BMI * A.c. HS Accu-Cheks * Hypoglycemia protocol ordered (6) Anemia: Qualifiers: Anemia type: other cause Code(s): D64.9 - Anemia, unspecified Status: Acute Assessment and Plan: Patient was recently hospitalized at this institution from 12/29-12/31 after presenting with symptomatic anemia. She received a total of 2 units of packed red blood cells and underwent EGD which found an acute duodenal ulcer, duodenitis, gastritis. Patient was started on Protonix b.i.d. for 6 weeks and then daily permanently. She was instructed to resume anticoagulation is 5-7 days. * Hemoglobin at discharge was 8.9 grams/deciliter. * Hemoglobin this admission has improved to 9.8. * No overt signs of bleeding. * TIBC, iron, vitamin B12, and folate levels were drawn last admission essentially normal. * Monitor on daily CBC transfuse for hemoglobin less than 7 Quality VTE Prophylaxis VTE prophylaxis: pharmacologic ordered Hospitalist MIPS Advance Care Plan I have confirmed that the patient's Advanced Care Plan is present, code status is documented, or surrogate decision maker is listed in patient medical record.: Yes Medication Reconciliation I have utilized all available resources to obtain, update and review the patients current medications (includes all prescriptions, OTC, herbals, cannabis, and nutritional supplements).: Yes
[2024-02-11 09:43] LABS: Hemoglobin A1C 5.9 % (<5.7)
--- NOTE | 2024-02-11 10:12 | ADMGEN ---
This patient, Prema Pearce, was admitted to IMU Room 205-02 on 02/11/24 at 0748. Patient/family oriented to hospital policies and general routines including ID bracelet, bed and alarms, visiting hours, pain management, procedures, bathroom and other care routines, personal items, smoking policy, room service/diet, and visiting hours. Information on how to activate the Rapid Response Team has been discussed. Patient/Family are encouraged to report perceived risks to care and to ask questions if they do not understand what they are told or what they should do.
[2024-02-11 11:04] LABS: Magnesium 2.4 mg/dL (1.6-2.3)
[2024-02-11 12:36] LABS: Glucose Point of Care 185 mg/dl (65-105)
[2024-02-11] MEDS: LIDOCAINE 5% PATCH 1 PATCH TOPICAL (14:55)
[2024-02-11] MEDS: HYDROcodone/acetaminophen (*CRX) 7.5-325 MG TABLET 1 TAB PO ×2 (14:56→20:47)
[2024-02-11] MEDS: PANTOPRAZOLE 40 MG TABLET PO (17:45)
[2024-02-11 18:03] LABS: Glucose Point of Care 188 mg/dl (65-105)
[2024-02-11] MEDS: APIXABAN 5 MG TABLET PO (20:49)
[2024-02-11] MEDS: BACLOFEN 5 MG TABLET PO (20:49)
[2024-02-11] MEDS: ROSUVASTATIN 20 MG TABLET PO (20:49)
[2024-02-11 21:47] LABS: Glucose Point of Care 172 mg/dl (65-105)
[2024-02-12] VITALS (17 sets, daily range): BP systolic 100–149; BP diastolic 60–101; PULSE 74–126; RESP 14–18; TEMP 36.5–36.9; O2SAT 94–97
[2024-02-12] MEDS: HYDROcodone/acetaminophen (*CRX) 7.5-325 MG TABLET 1 TAB PO ×2 (04:10→10:08)
[2024-02-12 05:03] LABS: Basophils Percent Auto 0.6 % (0.2-1.2); Eosinophils Absolute Auto 0.2 K/mm3 (0-0.3); Eosinophils Percent Auto 2.8 % (0-4.4); Hematocrit 31.1 % (37.0-47.0); Hemoglobin 9.7 g/dL (12.0-15.0); Immature Granulocyte Absolute 0.01 K/mm3 (0.00-0.031); Immature Granulocyte Percent A 0.2 % (0-0.5); Lymphocytes Absolute Auto 1.25 K/mm3 (0.9-3.2); Lymphocytes Percent Auto 23.5 % (18.3-44.2); Mean Corpuscular HGB Conc 31.2 g/dl (32-36); Mean Corpuscular Hemoglobin 29.4 pg (26-34); Mean Corpuscular Volume 94.2 fl (80-100); Mean Platelet Volume 9.9 fl (7.4-10.4); Monocytes Absolute Auto 0.6 K/mm3 (0.1-0.6); Monocytes Percent Auto 10.4 % (2.6-8.5); Neutrophils Absolute Auto 3.3 K/mm3 (1.3-6.7); Neutrophils Percent Auto 62.5 % (45.5-73.1); Platelet Count Result 248 k/mm3 (150-375); Red Cell Distribution Width 17.7 % (11.5-14.5); White Blood Count 5.3 K/mm3 (4.5-10.0)
[2024-02-12 05:12] LABS: Alanine Aminotransferase 17 U/L (6-35); Albumin Level 3.5 g/dL (3.5-5.1); Alkaline Phosphatase 89 U/L (38-126); Anion Gap 5 mmol/L (4-12); Aspartate Amino Transferase 20 U/L (14-36); Bilirubin,Total 0.6 mg/dL (0.2-1.3); Blood Urea Nitrogen 20 mg/dL (7-17); Calcium 9.2 mg/dL (8.4-10.2); Carbon Dioxide 27 mmol/L (22-30); Chloride 102 mmol/L (98-107); Estimated CRCL calculation 89 ml/min; Estimated Glomerular Filt Rate > 60; Glucose 138 mg/dL (65-110); Magnesium 1.4 mg/dL (1.6-2.3); Potassium 3.8 mmol/L (3.4-5.0); Sodium 134 mmol/L (137-145)
[2024-02-12] MEDS: LEVOTHYROXINE SODIUM 50 MCG TABLET PO (06:56)
[2024-02-12 08:18] LABS: Glucose Point of Care 152 mg/dl (65-105)
--- NOTE | 2024-02-12 08:32 | P.PNIM_ITS ---
Progress Note: A&P Assessment and Plan (1) Fall from ground level: Code(s): W18.30XA - Fall on same level, unspecified, initial encounter Status: Acute Assessment and Plan: Ground level fall with no acute fracture. Patient is having significant pain despite normal radiograph. * Activity up with assistance, up to chair * PT and OT were consulted * Tylenol, [place] 5 or 10 mg every 4 hours based on pain scale, * Bowel regimen with MiraLAX and senna * Fall precautions * Robaxin added (2) Atrial fibrillation with rapid ventricular response: Code(s): I48.91 - Unspecified atrial fibrillation Status: Acute Assessment and Plan: Patient has a history of atrial fibrillation on carvedilol 25 mg b.i.d. and Eliquis 5 mg b.i.d.. Usually she is rate controlled in a-fib but went into RVR in the ED requiring metoprolol 5 mg IVP and received her carvedilol 25 mg p.o.. Heart rate improved to 90s. * Telemetry ordered * Resume Coreg, resume Eliquis * Correct electrolyte imbalance * repeat EKG (3) Hypomagnesemia: Code(s): E83.42 - Hypomagnesemia Status: Acute Assessment and Plan: Magnesium was 1.2 on admission * Received 4 mg magnesium replacement * Daily magnesium level (4) Hypothyroidism: Code(s): E03.9 - Hypothyroidism, unspecified Status: Acute Assessment and Plan: History of hypothyroidism on levothyroxine 50 mcg daily. * Will check TSH given AFib RVR * Resume levothyroxine (5) Type 2 diabetes mellitus without complications: Code(s): E11.9 - Type 2 diabetes mellitus without complications Status: Acute Assessment and Plan: History of diabetes on glipizide 10 mg b.i.d., metformin 500 mg b.i.d. * Holding oral anti diabetics while inpatient * Moderate dose SSI correction based off of BMI * A.c. HS Accu-Cheks * Hypoglycemia protocol ordered (6) Anemia: Qualifiers: Anemia type: other cause Code(s): D64.9 - Anemia, unspecified Status: Acute Assessment and Plan: Patient was recently hospitalized at this institution from 12/29-12/31 after presenting with symptomatic anemia. She received a total of 2 units of packed red blood cells and underwent EGD which found an acute duodenal ulcer, duodenitis, gastritis. Patient was started on Protonix b.i.d. for 6 weeks and then daily permanently. She was instructed to resume anticoagulation is 5-7 days. * Hemoglobin at discharge was 8.9 grams/deciliter. * Hemoglobin this admission has improved to 9.8. * No overt signs of bleeding. * TIBC, iron, vitamin B12, and folate levels were drawn last admission essentially normal. * Monitor on daily CBC transfuse for hemoglobin less than 7 (7) UTI (urinary tract infection): Code(s): N39.0 - Urinary tract infection, site not specified Status: Acute Assessment and Plan: Rocephin started (8) Pulmonary edema: Code(s): J81.1 - Chronic pulmonary edema Status: Acute Assessment and Plan: continue home spironolactone a.m. chest x-ray echocardiogram EF 55-60% Time Spent With Patient Time with patient: Greater than 35 minutes Subjective Date/time seen: 02/12/24 08:32 Interval history: 84-year-old female with past medical history is significant for anxiety, atrial fibrillation, GERD, CHF, hyperlipidemia, AYAD on CPAP, hypothyroidism, and type 2 diabetes who presents the emergency room after suffering a ground level fall, found to have UTI and pulmonary edema and no acute injury found on workup. patient appears to be AFib on bedside monitor at 100-135 located EKG. Patient complains of severe heartburn and general aches GI cocktail and Robaxin ordered. Review of Systems Review of Systems: All systems reviewed & are unremarkable except as noted in HPI and below Exam Narrative: General: well appearing, appears stated age. HEENT: normocephalic, atraumatic. Mucous membranes moist. EOMI, PERRLA, bilateral sclera anicteric, no conjunctival injection. Neck supple without JVD, lymphadenopathy, or bruit. Respiratory: clear to ascultation bilaterally. No rales/rhonic/wheezes. Cardiovascular: Regular rate and rhythm, normal S1-S2 upon ascultation. No murmurs, rubs, or clicks. PMI is nondisplaced, capillary refill less than 3 second. Abdomen: Soft, round, no pulsatile masses, nondistended and nontender. No rebou nd, no guarding. No CVA tenderness, no hepatosplenomegaly. Bowel sounds present to all four quadrants. No high pitch or tinkling sounds, resonant to percussion. Extremities: No cyanosis, clubbing, or edema present. Pulses are palpable 2/2. Active ROM to all four extremities. Neuro: Alert and orientated x 4. PERRLA. Cranial nerves 2-12 intact without focal deficit. Skin: Warm, dry, and intact, without rash, erythema, or lesion. Psych: pleasant, cooperative, normal speech, normal affect, no hallucinations, no dysarthia Objective Data Vital Signs Vital Signs: Vital Signs - 24 hr 02/11/24 14:12 02/11/24 14:54 02/11/24 14:56 Temperature Pulse Rate 129 H 126 H Respiratory Rate Blood Pressure 139/85 Pulse Oximetry Oxygen Delivery Room Air 02/11/24 12:00 02/11/24 16:00 02/11/24 10:00 Temperature 98.5 F Pulse Rate 90 76 Respiratory Rate 18 Blood Pressure 98/72 L Pulse Oximetry 94 Oxygen Delivery Room Air 02/11/24 12:00 02/11/24 14:00 02/11/24 16:00 Temperature Pulse Rate 88 93 94 Respiratory Rate Blood Pressure Pulse Oximetry Oxygen Delivery 02/11/24 18:00 02/11/24 16:00 02/11/24 19:10 Temperature 98.0 F Pulse Rate 88 90 Respiratory Rate 16 Blood Pressure 123/79 Pulse Oximetry 94 Oxygen Delivery Room Air 02/11/24 20:48 02/11/24 20:00 02/11/24 22:00 Temperature Pulse Rate 96 84 86 Respiratory Rate Blood Pressure Pulse Oximetry Oxygen Delivery 02/12/24 00:00 02/12/24 00:00 02/12/24 02:00 Temperature 98.5 F Pulse Rate 96 86 74 Respiratory Rate 14 Blood Pressure 100/60 Pulse Oximetry 95 Oxygen Delivery 02/12/24 04:00 02/12/24 04:00 02/12/24 06:00 Temperature 98.2 F Pulse Rate 91 84 83 Respiratory Rate 18 Blood Pressure 144/101 H Pulse Oximetry 97 Oxygen Delivery 02/12/24 07:53 Temperature 98.0 F Pulse Rate 83 Respiratory Rate 18 Blood Pressure 149/97 H Pulse Oximetry 96 Oxygen Delivery Intake/Output Intake/Output: Intake & Output 02/09/24 02/10/24 02/11/24 02/12/24 23:59 23:59 23:59 23:59 Intake Total 490 100 Output Total 500 50 Balance -10 50 Meds/Results Medications: Active Medications Generic Name Dose Route Start Last Admin Trade Name Freq PRN Reason Stop Dose Admin Acetaminophen 1,000 mg 02/11/24 13:51 Acetaminophen 500 Mg Tablet PO Q6H PRN Pain (Scale Score 1-3) Hydrocodone Bitart/Acetaminophen 1 tab 02/11/24 08:52 Hydrocodone/Acetaminophen (*Crx) 5-325 Mg Tablet PO Q4H PRN Pain Rated 4-6 Hydrocodone Bitart/Acetaminophen 1 tab 02/11/24 08:52 02/12/24 04:10 Hydrocodone/Acetaminophen (*Crx) 7.5-325 Mg Tablet PO 1 tab Q4H PRN Administration Pain Rated 7-10 Apixaban 5 mg 02/11/24 21:00 02/11/24 20:49 Apixaban 5 Mg Tablet PO 5 mg Q12H MISHA Administration Baclofen 5 mg 02/11/24 21:00 02/11/24 20:49 Baclofen 5 Mg Tablet PO 5 mg HS MISHA Administration Calcium Carbonate 400 mg 02/11/24 14:01 Calcium Carbonate (Tums) 500 Mg (200 Mg Elemental) PO Q6H PRN Acid Reflux Carvedilol 25 mg 02/11/24 21:00 02/11/24 20:48 Carvedilol 25 Mg Tablet PO 25 mg Q12HR MISHA Administration Dextrose 12.5 gm 02/11/24 09:00 Dextrose 50% 25 Gm/50 Ml Syringe IV PUSH PRN PRN Hypoglycemia Protocol Fluoxetine HCl 40 mg 02/12/24 09:00 Fluoxetine Hcl 20 Mg Capsule PO DAILY MISHA Glucagon 1 mg 02/11/24 09:00 Glucagon For Inj 1 Mg Vial IM PRN PRN Hypoglycemia Protocol Glucose 15 gm 02/11/24 09:00 Glucose Oral Gel 15 Gm Of Glucse In 37.5 Gm Tube PO PRN PRN Hypoglycemia Protocol Hydromorphone HCl 0.5 mg 02/11/24 08:52 Hydromorphone Hcl Inj (*Crx) 1 Mg/Ml Syr IV PUSH Q4H PRN Breakthrough pain Ceftriaxone Sodium 1 gm in 50 mls @ 100 mls/hr 02/11/24 08:35 02/11/24 11:20 Rocephin 1 Gm/Ns 50 Ml IVPB Infused Q24H [facility] Infusion Dextrose 1,000 mls @ 100 mls/hr 02/11/24 09:00 Dextrose 5% 1,000 Ml IVPB PRN PRN Hypoglycemia Protocol Insulin Aspart 3 - 6 units 02/11/24 12:00 02/11/24 18:37 Insulin Aspart (*Bkc) 100 Units/Ml SUB-Q Not Given TIDWM [facility] Protocol Levothyroxine Sodium 50 mcg 02/12/24 06:30 02/12/24 06:56 Levothyroxine Sodium 50 Mcg Tablet PO 50 mcg DAILY@0630 [facility] Administration Lidocaine 1 patch 02/11/24 14:19 02/11/24 14:55 Lidocaine 5% Patch TOPICAL 1 patch DAILY [facility] Administration Naloxone HCl 0.1 mg 02/11/24 08:37 Naloxone Hcl 0.4 Mg/Ml Vial IV PUSH Q2M PRN Opiate Reversal Ondansetron HCl 4 mg 02/11/24 08:37 Ondansetron Inj 4 Mg/2 Ml Vial IV PUSH Q6H PRN Nausea And Vomiting Ondansetron HCl 4 mg 02/11/24 14:01 Ondansetron Hcl Odt 4 Mg Tablet PO TID PRN Nausea And Vomiting Pantoprazole Sodium 40 mg 02/11/24 17:00 02/11/24 17:45 Pantoprazole 40 Mg Tablet PO 40 mg BID [facility] Administration Rosuvastatin Calcium 20 mg 02/11/24 21:00 02/11/24 20:49 Rosuvastatin 20 Mg Tablet PO 20 mg HS [facility] Administration Spironolactone 50 mg 02/12/24 09:00 Spironolactone 50 Mg Tablet PO DAILY [facility] Vitamin D 2,000 units 02/12/24 09:00 Cholecalciferol 1,000 Units Tablet PO DAILY [facility] Radiology Results: ITS Impressions Head CT 02/11/24 00:06 IMPRESSION: 1. No fracture or acute intracranial process. 2. 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 3. Age-related changes including moderate diffuse volume loss and mild to moderate scattered white matter hypoattenuation consistent with chronic small vessel ischemic disease. Cervical Spine CT 02/11/24 00:10 IMPRESSION: 1. Severe cervical spondylosis. No acute osseous abnormality. 2. Mild pulmonary edema in the visualized upper lungs. Hip/Pelvis X-Ray 02/11/24 06:52 IMPRESSION: 1. No acute osseous abnormality. Shoulder X-Ray 02/11/24 06:54 IMPRESSION: Mild right glenohumeral and acromioclavicular osteoarthritis. No acute osseous abnormality. Chest X-Ray 02/11/24 07:02 IMPRESSION: 1. Cardiomegaly with mild pulmonary edema. Chest/Abdomen/Pelvis CT 02/11/24 07:49 IMPRESSION: 1. No acute fracture or evident visceral organ injury in the chest, abdomen or pelvis. 2. Congestive heart failure with cardiomegaly and mild pulmonary edema. 3. Bilateral nonobstructing nephrolithiasis. 4. Mild diverticulosis. Labs Labs: Laboratory Results - last 24 hr 02/11/24 02/11/24 02/11/24 08:59 10:41 11:41 WBC RBC Hgb Hct MCV MCH MCHC RDW Plt Count MPV Immature Gran % (Auto) Neut % (Auto) Lymph % (Auto) [place] % (Auto) Eos % (Auto) Baso % (Auto) Lymph # (Auto) [place] # (Auto) Eos # (Auto) Baso # (Auto) Abs Immat Gran (auto) Absolute Neuts (auto) Absolute Nucleated RBC Nucleated RBC % Sodium Potassium Chloride Carbon Dioxide Anion Gap BUN Creatinine Estim Creat Clear Calc Estimated GFR Glucose POC Capillary Glucose 185 H Hemoglobin A1c 5.9 H Calcium Magnesium 2.4 H Total Bilirubin AST ALT Alkaline Phosphatase Total Protein Albumin TSH (Reflex) 3.560 02/11/24 02/11/24 02/12/24 17:51 21:45 04:35 WBC 5.3 RBC 3.30 L Hgb 9.7 L Hct 31.1 L MCV 94.2 MCH 29.4 MCHC 31.2 L RDW 17.7 H Plt Count 248 MPV 9.9 Immature Gran % (Auto) 0.2 Neut % (Auto) 62.5 Lymph % (Auto) 23.5 [place] % (Auto) 10.4 H Eos % (Auto) 2.8 Baso % (Auto) 0.6 Lymph # (Auto) 1.25 [place] # (Auto) 0.6 Eos # (Auto) 0.2 Baso # (Auto) 0.0 Abs Immat Gran (auto) 0.01 Absolute Neuts (auto) 3.3 Absolute Nucleated RBC 0.000 Nucleated RBC % 0.0 Sodium 134 L Potassium 3.8 Chloride 102 Carbon Dioxide 27 Anion Gap 5 BUN 20 H Creatinine 0.40 L Estim Creat Clear Calc 89 Estimated GFR > 60 Glucose 138 H POC Capillary Glucose 188 H 172 H Hemoglobin A1c Calcium 9.2 Magnesium 1.4 L Total Bilirubin 0.6 AST 20 ALT 17 Alkaline Phosphatase 89 Total Protein 7.0 Albumin 3.5 TSH (Reflex) 02/12/24 07:55 WBC RBC Hgb Hct MCV MCH MCHC RDW Plt Count MPV Immature Gran % (Auto) Neut % (Auto) Lymph % (Auto) [place] % (Auto) Eos % (Auto) Baso % (Auto) Lymph # (Auto) [place] # (Auto) Eos # (Auto) Baso # (Auto) Abs Immat Gran (auto) Absolute Neuts (auto) Absolute Nucleated RBC Nucleated RBC % Sodium Potassium Chloride Carbon Dioxide Anion Gap BUN Creatinine Estim Creat Clear Calc Estimated GFR Glucose POC Capillary Glucose 152 H Hemoglobin A1c Calcium Magnesium Total Bilirubin AST ALT Alkaline Phosphatase Total Protein Albumin TSH (Reflex) Quality VTE Prophylaxis VTE prophylaxis: pharmacologic ordered Hospitalist MIPS Advance Care Plan I have confirmed that the patient's Advanced Care Plan is present, code status is documented, or surrogate decision maker is listed in patient medical record.: Yes Medication Reconciliation I have utilized all available resources to obtain, update and review the patients current medications (includes all prescriptions, OTC, herbals, cannabis, and nutritional supplements).: Yes
--- NOTE | 2024-02-12 08:38 | ECHO_ITS ---
Patient Info Name: Prema Pearce Age: 84 years : 1940 Gender: Female Ht: 62 in Wt: 186 lbs BSA: 1.96 m2 HR: 83 bpm BP: 149 / 97 mmHg Heart Rhythm: Atrial Fibrillation Technical Quality: Poor Exam Date: 02/12/2024 9:15 AM Exam Location: Echo Lab Patient Status: Inpatient Admit Date: 02/11/2024 Staff Ordering Physician: Delmy Mckeon APRN Electrical Manufacturing Engineer: Wanda Guzman RDCS Attending Provider: Molly Weiss APRN Referring Physician: Mike DOWLING; Exam Type: CA echo dop color flow w con Study Info Indications - CHF Complete two-dimensional, color flow and Doppler transthoracic echocardiogram is performed with contrast to opacify the left ventricle and to improve the deliniation of the left ventricle endocardial borders. Contrast/Agitated Saline Contrast/Ag. Saline: Definity Amount: --- ml Reason for Poor Study: poor echocardiographic windows Summary 1. Definity contrast administered improved wall motion interpretation. 2. Left ventricular chamber dimension is normal. 3. Left ventricular systolic function is normal, estimated at 55-60%. 4. There is mild concentric increased left ventricular wall thickness. 5. The left ventricular diastolic function is indeterminate. 6. Tissue doppler E/e' is not performed. 7. Left atrial chamber dimension is severely enlarged. 8. Right atrial chamber dimension is moderately enlarged. 9. There is severe aortic valve sclerosis. 10. There is severe aortic valve stenosis with a peak velocity of 280.48 cm/s, mean gradient of 5 mmHg, and aortic valve area of 0.64 cm2. 11. The mitral valve has severely calcified annulus. 12. There is moderate mitral valve stenosis with valvea area of 1.38 cm2, mean gradient of 3 mmHg. 13. There is mild to moderate mitral valve regurgitation. 14. Dilated inferior vena cava with <50% collapse upon inspiration consistent with significantly elevated right atrial pressure, 15 mmHg. Left Ventricle Definity contrast administered improved wall motion interpretation. Tissue doppler E/e' is not performed. Left ventricular chamber dimension is normal. Left ventricular systolic function is normal, estimated at 55-60%. There is mild concentric increased left ventricular wall thickness. The left ventricular diastolic function is indeterminate. Right Ventricle Right ventricular chamber dimension is normal. Right ventricular systolic function is normal. Left Atria Left atrial chamber dimension is severely enlarged. Right Atria Right atrial chamber dimension is moderately enlarged. Aortic Valve The aortic valve is trileaflet. There is severe aortic valve sclerosis. There is severe aortic valve stenosis with a peak velocity of 280.48 cm/s, mean gradient of 5 mmHg, and aortic valve area of 0.64 cm2. There is no aortic valve regurgitation. Pulmonic Valve There is no pulmonic regurgitation. Mitral Valve The mitral valve has severely calcified annulus. There is moderate mitral valve stenosis with valvea area of 1.38 cm2, mean gradient of 3 mmHg. There is mild to moderate mitral valve regurgitation. Tricuspid Valve There is no tricuspid valve regurgitation. Pericardium/Pleural There is no pericardial effusion. Inferior Vena Cava Dilated inferior vena cava with <50% collapse upon inspiration consistent with significantly elevated right atrial pressure, 15 mmHg. Aorta The aortic root size at the sinus of Valsalva is normal. Left Ventricular Outflow Tract Name Value Normal LVOT 2D LVOT Diameter 1.75 cm LVOT Doppler LVOT Peak Gradient 2 mmHg LVOT Mean Gradient 2 mmHg LVOT VTI 16.03 cm LVOT VTI/AV VTI Ratio 0.27 LVOT Stroke Volume 38.37 ml LVOT CO 5.14 l/min LVOT CI 2.62 L/min/m2 Pulmonic Valve Name Value Normal RVOT Doppler RVOT Peak Gradient 2 mmHg PV Doppler PV Peak Gradient 3 mmHg Mitral Valve Name Value Normal MV Doppler MV Peak Gradient 9 mmHg MV Mean Gradient 3 mmHg MV Decel [place] 822.26 cm/s2 MV PHT 0 s MV Area (PHT) 4.78 cm2 4.00-5.00 MV Area (Cont Eq VTI) 1.38 cm2 MV Diastolic Function MV E Peak Velocity 130.45 cm/s MV A Peak Velocity 1.36 cm/s MV E/A 95.60 MV Decel Time 0 s Tricuspid Valve Name Value Normal Estimated PAP/RSVP RA Pressure 15 mmHg <=5 Aorta Name Value Normal Ascending Aorta Ao Root Diameter (MM) 3.18 cm Ao Root Diam Index (MM) 1.63 cm/m2 Aortic Valve Name Value Normal AV Doppler AV Peak Velocity 280.48 cm/s AV Peak Gradient 9 mmHg AV Mean Gradient 5 mmHg AV VTI 60.31 cm AV Area (Cont Eq VTI) 0.64 cm2 >=3.00 AV Area (Cont Eq Jeancarlos) 1.17 cm2 AV Regurgitation 2D LVOT Area 2.39 cm2 Ventricles Name Value Normal LV Dimensions 2D/MM IVS Diastolic Thickness (2D) 1.08 cm 0.60-1.00 LVID Diastole (2D) 3.96 cm 3.80-5.20 LVIW Diastolic Thickness (2D) 1.16 cm 0.60-0.90 LVID Systole (2D) 2.77 cm 2.20-3.50 LVOT Diameter 1.75 cm LV Mass (2D Cubed) 147.30 g 67.00-162.00 LV Mass Index (2D Cubed) 0.01 g/cm2 0.00-0.01 Relative Wall Thickness (2D) 0.59 LV Fractional Shortening/Ejection Fraction 2D/MM LV Fractional Shortening (2D) 28 % 27-45 LV EF (2D Teicholz) 55 % 54-74 Atria Name Value Normal LA Dimensions LA Dimension (MM) 4.28 cm 2.70-3.80 LA Volume (4C A-L) 179.61 ml LA Volume (BP A-L) 161.67 ml RA Dimensions RA Area (4C) 25.03 cm2 <=18.00 Report Signatures
[2024-02-12] MEDS: PERFLUTREN LIPID MICROSPHERES 1.5 ML VIAL DILUTED TO 10 ML TOTAL VOLUME IV PUSH (09:45)
[2024-02-12] MEDS: SPIRONOLACTONE 50 MG TABLET PO (10:01)
[2024-02-12] MEDS: FLUoxetine HCL 20 MG CAPSULE 40 MG PO (10:01)
[2024-02-12] MEDS: CHOLECALCIFEROL 1,000 UNITS TABLET 2000 UNITS PO (10:01)
[2024-02-12] MEDS: carvediloL 25 MG TABLET PO ×2 (10:01→20:45)
[2024-02-12] MEDS: PANTOPRAZOLE 40 MG TABLET PO ×2 (10:01→17:31)
[2024-02-12] MEDS: LIDOCAINE 5% PATCH 1 PATCH TOPICAL (10:02)
[2024-02-12] MEDS: APIXABAN 5 MG TABLET PO ×2 (10:02→20:45)
--- NOTE | 2024-02-12 10:14 | IVDEFINITY ---
Prior to administration of IV Definity the patient was educated on the risks and benefits of the imaging enhancing agent including potential adverse side effects. The patient verbalized understanding. Allergies were verified. No exclusion criteria were identified and at least one of the following inclusion criteria were met: 1) physician request, 2) patient technically difficult to image (per the [place] [employer] guidelines of two or more segments not discernable within the apical view), or 3) questionable left ventricular function. ?
[2024-02-12] MEDS: CALCIUM CARBONATE (TUMS) 500 MG (200 MG ELEMENTAL) 400 MG PO ×2 (10:35→20:45)
--- NOTE | 2024-02-12 11:05 | PCPTNOTE ---
Attempted to see patient for Physical Therapy. Patient stated that she could not do anything today. Patient stated that she was hurting too much. RN notified
[2024-02-12 11:52] LABS: Glucose Point of Care 165 mg/dl (65-105)
--- NOTE | 2024-02-12 12:31 | ECG_ITS ---
Test Date: 2024-02-12 13:17:42 Measurements Intervals [place] Rate: 100 P: 0 NM: 0 QRS: 84 QRSD: 98 T: 1 QT: 355 QTc: 459 Interpretive Statements ATRIAL FIBRILLATION WITH RAPID VENTRICULAR RESPONSE MINIMAL Q WAVES- INFERIOR LEADS BASELINE ARTIFACT- I, II, AVR, AVL ABNORMAL ECG Compared to ECG 02/11/2024 04:33:36 HEART RATE HAS DECREASED Electronically Signed On 02-12-2024 13:20:49 MIXER ATTENDANT by Kali Webber D.O.
[2024-02-12] MEDS: BELLADONNA ALK/PHENOB ELIX 10 ML, MAG HYDROX/ALUMINUM HYD/SIMETH 30 ML, LIDOCAINE HCL 2... PO (12:52)
[2024-02-12] MEDS: MAGNESIUM SULF 2 GM/WATER 50ML 2 GM/50 ML BAG IVPB (12:53)
[2024-02-12] MEDS: methocarbamoL 500 MG TABLET PO ×3 (12:53→20:45)
[2024-02-12] MEDS: ACETAMINOPHEN 500 MG TABLET 1000 MG PO ×2 (14:39→20:59)
[2024-02-12 16:44] LABS: Glucose Point of Care 157 mg/dl (65-105)
--- NOTE | 2024-02-12 17:13 | PC.NURSE ---
Pt. took her home medication Omeprazole 40 mg at 1235 and told this RN. Pt and son educated on not taking home medications. Son took medication home with him. Hospitalist, Delmy, notified at 1245.
[2024-02-12 20:07] LABS: Glucose Point of Care 222 mg/dl (65-105)
[2024-02-12] MEDS: ROSUVASTATIN 20 MG TABLET PO (20:44)
[2024-02-12] MEDS: BACLOFEN 5 MG TABLET PO (20:46)
[2024-02-13] VITALS (17 sets, daily range): BP systolic 120–151; BP diastolic 53–103; PULSE 68–113; RESP 16–18; TEMP 36.4–37; O2SAT 95–98
[2024-02-13 04:05] LABS: Basophils Percent Auto 0.8 % (0.2-1.2); Eosinophils Absolute Auto 0.1 K/mm3 (0-0.3); Eosinophils Percent Auto 3.4 % (0-4.4); Hematocrit 30.8 % (37.0-47.0); Hemoglobin 9.6 g/dL (12.0-15.0); Immature Granulocyte Absolute 0.01 K/mm3 (0.00-0.031); Immature Granulocyte Percent A 0.3 % (0-0.5); Lymphocytes Absolute Auto 0.87 K/mm3 (0.9-3.2); Mean Corpuscular HGB Conc 31.2 g/dl (32-36); Mean Corpuscular Hemoglobin 29.3 pg (26-34); Mean Corpuscular Volume 93.9 fl (80-100); Mean Platelet Volume 9.6 fl (7.4-10.4); Monocytes Absolute Auto 0.4 K/mm3 (0.1-0.6); Monocytes Percent Auto 10.6 % (2.6-8.5); Neutrophils Absolute Auto 2.4 K/mm3 (1.3-6.7); Neutrophils Percent Auto 61.9 % (45.5-73.1); Platelet Count Result 239 k/mm3 (150-375); Red Blood Count 3.28 M/mm3 (4.2-5.4); Red Cell Distribution Width 17.5 % (11.5-14.5); White Blood Count 3.8 K/mm3 (4.5-10.0)
[2024-02-13 04:27] LABS: Alanine Aminotransferase 16 U/L (6-35); Albumin Level 3.4 g/dL (3.5-5.1); Alkaline Phosphatase 90 U/L (38-126); Anion Gap 4 mmol/L (4-12); Aspartate Amino Transferase 19 U/L (14-36); Bilirubin,Total 0.6 mg/dL (0.2-1.3); Blood Urea Nitrogen 17 mg/dL (7-17); Carbon Dioxide 29 mmol/L (22-30); Chloride 101 mmol/L (98-107); Estimated CRCL calculation 72 ml/min; Estimated Glomerular Filt Rate > 60; Glucose 127 mg/dL (65-110); Magnesium 1.6 mg/dL (1.6-2.3); Potassium 4.1 mmol/L (3.4-5.0); Sodium 134 mmol/L (137-145)
[2024-02-13] MEDS: LEVOTHYROXINE SODIUM 50 MCG TABLET PO (06:00)
[2024-02-13] MEDS: ACETAMINOPHEN 500 MG TABLET 1000 MG PO ×2 (06:23→12:39)
[2024-02-13 07:46] LABS: Glucose Point of Care 158 mg/dl (65-105)
--- NOTE | 2024-02-13 07:49 | P.PNIM_ITS ---
Progress Note: A&P Assessment and Plan (1) Fall from ground level: Code(s): W18.30XA - Fall on same level, unspecified, initial encounter Status: Acute Assessment and Plan: Ground level fall with no acute fracture. Patient is having significant pain * Activity up with assistance, up to chair * PT and OT were consulted. Will likely need rehab after discharge * Continue tylenol * Change norco to oxycodone 2.5/5mg prn per patient preference * Bowel regimen with MiraLAX and senna * Fall precautions * Change baclofen from 500 QID to 750mg TID and dc Baclofen 5mg hs * Check left knee, tib/fib x-ray * ICE/heat pack prn (2) Atrial fibrillation with rapid ventricular response: Code(s): I48.91 - Unspecified atrial fibrillation Status: Acute Assessment and Plan: Patient has a history of atrial fibrillation on carvedilol 25 mg b.i.d. and Eliquis 5 mg b.i.d.. Usually she is rate controlled in a-fib but went into RVR in the ED requiring metoprolol 5 mg IVP and received her carvedilol 25 mg p.o.. Heart rate improved to upper 101-111. HR also elevated in the setting of pain. Was previously treated with sotolol from [id number], changed to amiodarone in 2019 but had GI side effects. * Telemetry ordered * Resume Coreg, resume Eliquis * Correct electrolyte imbalance * repeat EKG 02/11 afib with rate 100 * 02/11 TTE LVEF 55-60%, severe aortic valve stenosis. Dilated inferior vena cava with <50% collapse upon inspiration consistent with significantly elevated right atrial pressure, 15 mmHg. --Cardiology consult for severe and rate control, consideration of solotol (3) Hypomagnesemia: Code(s): E83.42 - Hypomagnesemia Status: Acute Assessment and Plan: Magnesium was 1.2 on admission * Received 4 mg magnesium replacement * Daily magnesium level * 1 G mag 02/12 for 1.6 * check phos in AM (4) Hypothyroidism: Code(s): E03.9 - Hypothyroidism, unspecified Status: Acute Assessment and Plan: History of hypothyroidism on levothyroxine 50 mcg daily. TSH 3.56 * Continue levothyroxine (5) Type 2 diabetes mellitus without complications: Code(s): E11.9 - Type 2 diabetes mellitus without complications Status: Acute Assessment and Plan: History of diabetes on glipizide 10 mg b.i.d., metformin 500 mg b.i.d. * Holding oral anti diabetics while inpatient * Moderate dose SSI correction based off of BMI * A.c. HS Accu-Cheks * Hypoglycemia protocol ordered (6) Anemia: Qualifiers: Anemia type: other cause Code(s): D64.9 - Anemia, unspecified Status: Acute Assessment and Plan: Patient was recently hospitalized at this institution from 12/29-12/31 after presenting with symptomatic anemia. She received a total of 2 units of packed red blood cells and underwent EGD which found an acute duodenal ulcer, duodenitis, gastritis. Patient was started on Protonix b.i.d. for 6 weeks and then daily permanently. She was instructed to resume anticoagulation is 5-7 days. * Hemoglobin at discharge was 8.9 grams/deciliter. * Hemoglobin this admission has improved to 9.8. * No overt signs of bleeding. * TIBC, iron, vitamin B12, and folate levels were drawn last admission essentially normal. * Monitor on daily CBC transfuse for hemoglobin less than 7 * On home eliquis (7) UTI (urinary tract infection): Code(s): N39.0 - Urinary tract infection, site not specified Status: Acute Assessment and Plan: 02/10 UA positive for nitrites,4+ bacteria, 6-10 WBC's. --02/10 Urine culture growing Klebsiella oxytoca 02/10 -- Continue rocephin pending cultures (8) Pulmonary edema: Code(s): J81.1 - Chronic pulmonary edema Status: Acute Assessment and Plan: continued home spironolactone 01/12 chest x-ray scattered infiltrates and/or atelectasis echocardiogram EF 55-60% Time Spent With Patient Time: 57 minutes Subjective Date/time seen: 02/13/24 07:49 Interval history: Reports pain all over, especially left knee, neck, and right hip. Burning chest pain improved. Still intermittently tachycardic. No BM since admission, asked for miralax. Worried about taking norco so changing to oxycodone. DC baclofen 5mg and increase methocarbamol from 500 QID to 750 TID 1 G mag, check phos, recheck mag in AM. BMP ok and CBC stable. Left knee and tib/fib xray 84-year-old female with past medical history is significant for anxiety, atrial fibrillation, GERD, CHF, hyperlipidemia, AYAD on CPAP, hypothyroidism, and type 2 diabetes who presents the emergency room after suffering a ground level fall, found to have UTI and pulmonary edema and no acute injury found on workup. Review of Systems Review of Systems: All systems reviewed & are unremarkable except as noted in HPI and below Exam Narrative: General: well appearing, appears stated age. HEENT: normocephalic, atraumatic. Mucous membranes moist. EOMI, PERRLA, bilateral sclera anicteric, no conjunctival injection. Neck supple without JVD, lymphadenopathy, or bruit. Respiratory: clear to ascultation bilaterally. No rales/rhonic/wheezes. Cardiovascular: Regular rate and rhythm, normal S1-S2 upon ascultation. No murmurs, rubs, or clicks. PMI is nondisplaced, capillary refill less than 3 second. Abdomen: Soft, round, no pulsatile masses, nondistended and nontender. No rebound, no guarding. No CVA tenderness, no hepatosplenomegaly. Bowel sounds present to all four quadrants. No high pitch or tinkling sounds, resonant to percussion. Extremities: No cyanosis, clubbing, or edema present. Pulses are palpable 2/2. Active ROM to all four extremities. Neuro: Alert and orientated x 4. PERRLA. Cranial nerves 2-12 intact without focal deficit. Skin: Warm, dry, and intact, without rash, erythema, or lesion. Psych: pleasant, cooperative, normal speech, normal affect, no hallucinations, no dysarthia Objective Data Vital Signs Vital Signs: Vital Signs - 24 hr 02/12/24 07:53 02/12/24 10:01 02/12/24 11:23 Temperature 98.0 F 98.0 F Pulse Rate 83 116 H 98 Respiratory Rate 18 18 Blood Pressure 149/97 H 145/86 H Pulse Oximetry 96 94 Oxygen Delivery 02/12/24 08:00 02/12/24 12:00 02/12/24 08:00 Temperature Pulse Rate 89 Respiratory Rate Blood Pressure Pulse Oximetry Oxygen Delivery Room Air Room Air 02/12/24 10:00 02/12/24 12:00 02/12/24 14:00 Temperature Pulse Rate 123 H 126 H 97 Respiratory Rate Blood Pressure Pulse Oximetry Oxygen Delivery 02/12/24 15:28 02/12/24 15:55 02/12/24 16:00 Temperature 97.7 F Pulse Rate 95 94 Respiratory Rate 18 Blood Pressure 129/78 Pulse Oximetry 95 Oxygen Delivery Room Air 02/12/24 18:00 02/12/24 16:00 02/12/24 20:00 Temperature 98 F Pulse Rate 100 80 Respiratory Rate 16 Blood Pressure 114/86 Pulse Oximetry 95 Oxygen Delivery Room Air 02/12/24 20:45 02/12/24 20:00 02/12/24 22:00 Temperature Pulse Rate 107 H 100 77 Respiratory Rate Blood Pressure Pulse Oximetry Oxygen Delivery 02/13/24 00:00 02/13/24 02:00 02/13/24 00:00 Temperature 97.8 F Pulse Rate 68 78 72 Respiratory Rate 16 Blood Pressure 120/73 Pulse Oximetry 96 Oxygen Delivery 02/13/24 04:00 02/13/24 04:00 02/13/24 06:00 Temperature 97.8 F Pulse Rate 74 74 100 Respiratory Rate 18 Blood Pressure 145/88 H Pulse Oximetry 95 Oxygen Delivery 02/13/24 07:33 Temperature 98.3 F Pulse Rate 95 Respiratory Rate 16 Blood Pressure 151/101 H Pulse Oximetry 96 Oxygen Delivery Intake/Output Intake/Output: Intake & Output 02/10/24 02/11/24 02/12/24 02/13/24 23:59 23:59 23:59 23:59 Intake Total 490 830 150 Output Total 500 450 250 Balance -10 380 -100 Meds/Results Medications: Active Medications Generic Name Dose Route Start Last Admin Trade Name Freq PRN Reason Stop Dose Admin Acetaminophen 1,000 mg 02/11/24 13:51 02/13/24 06:23 Acetaminophen 500 Mg Tablet PO 1,000 mg Q6H PRN Administration Pain (Scale Score 1-3) Hydrocodone Bitart/Acetaminophen 1 tab 02/11/24 08:52 Hydrocodone/Acetaminophen (*Crx) 5-325 Mg Tablet PO Q4H PRN Pain Rated 4-6 Hydrocodone Bitart/Acetaminophen 1 tab 02/11/24 08:52 02/12/24 10:08 Hydrocodone/Acetaminophen (*Crx) 7.5-325 Mg Tablet PO 1 tab Q4H PRN Administration Pain Rated 7-10 Apixaban 5 mg 02/11/24 21:00 02/12/24 20:45 Apixaban 5 Mg Tablet PO 5 mg Q12H MISHA Administration Baclofen 5 mg 02/11/24 21:00 02/12/24 20:46 Baclofen 5 Mg Tablet PO 5 mg HS MISHA Administration Calcium Carbonate 400 mg 02/11/24 14:01 02/12/24 20:45 Calcium Carbonate (Tums) 500 Mg (200 Mg Elemental) PO 400 mg Q6H PRN Administration Acid Reflux Carvedilol 25 mg 02/11/24 21:00 02/12/24 20:45 Carvedilol 25 Mg Tablet PO 25 mg Q12HR MISHA Administration Dextrose 12.5 gm 02/11/24 09:00 Dextrose 50% 25 Gm/50 Ml Syringe IV PUSH PRN PRN Hypoglycemia Protocol Fluoxetine HCl 40 mg 02/12/24 09:00 02/12/24 10:01 Fluoxetine Hcl 20 Mg Capsule PO 40 mg DAILY MISHA Administration Glucagon 1 mg 02/11/24 09:00 Glucagon For Inj 1 Mg Vial IM PRN PRN Hypoglycemia Protocol Glucose 15 gm 02/11/24 09:00 Glucose Oral Gel 15 Gm Of Glucse In 37.5 Gm Tube PO PRN PRN Hypoglycemia Protocol Ceftriaxone Sodium 1 gm in 50 mls @ 100 mls/hr 02/11/24 08:35 02/12/24 10:02 Rocephin 1 Gm/Ns 50 Ml IVPB 100 mls/hr Q24H MISHA Administration Dextrose 1,000 mls @ 100 mls/hr 02/11/24 09:00 Dextrose 5% 1,000 Ml IVPB PRN PRN Hypoglycemia Protocol Insulin Aspart 3 - 6 units 02/11/24 12:00 02/12/24 17:21 Insulin Aspart (*Bkc) 100 Units/Ml SUB-Q Not Given TIDWM [facility] Protocol Levothyroxine Sodium 50 mcg 02/12/24 06:30 02/13/24 06:00 Levothyroxine Sodium 50 Mcg Tablet PO 50 mcg DAILY@0630 MISHA Administration Lidocaine 1 patch 02/11/24 14:19 02/12/24 10:02 Lidocaine 5% Patch TOPICAL 1 patch DAILY MISHA Administration Methocarbamol 500 mg 02/12/24 12:00 02/12/24 20:45 Methocarbamol 500 Mg Tablet PO 500 mg QID MISHA Administration Naloxone HCl 0.1 mg 02/11/24 08:37 Naloxone Hcl 0.4 Mg/Ml Vial IV PUSH Q2M PRN Opiate Reversal Ondansetron HCl 4 mg 02/11/24 08:37 Ondansetron Inj 4 Mg/2 Ml Vial IV PUSH Q6H PRN Nausea And Vomiting Ondansetron HCl 4 mg 02/11/24 14:01 Ondansetron Hcl Odt 4 Mg Tablet PO TID PRN Nausea And Vomiting Pantoprazole Sodium 40 mg 02/11/24 17:00 02/12/24 17:31 Pantoprazole 40 Mg Tablet PO 40 mg BID MISHA Administration Rosuvastatin Calcium 20 mg 02/11/24 21:00 02/12/24 20:44 Rosuvastatin 20 Mg Tablet PO 20 mg HS MISHA Administration Spironolactone 50 mg 02/12/24 09:00 02/12/24 10:01 Spironolactone 50 Mg Tablet PO 50 mg DAILY MISHA Administration Vitamin D 2,000 units 02/12/24 09:00 02/12/24 10:01 Cholecalciferol 1,000 Units Tablet PO 2,000 units DAILY MISHA Administration Radiology Results: ITS Impressions Head CT 02/11/24 00:06 IMPRESSION: 1. No fracture or acute intracranial process. 2. 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 3. Age-related changes including moderate diffuse volume loss and mild to moderate scattered white matter hypoattenuation consistent with chronic small vessel ischemic disease. Cervical Spine CT 02/11/24 00:10 IMPRESSION: 1. Severe cervical spondylosis. No acute osseous abnormality. 2. Mild pulmonary edema in the visualized upper lungs. Hip/Pelvis X-Ray 02/11/24 06:52 IMPRESSION: 1. No acute osseous abnormality. Shoulder X-Ray 02/11/24 06:54 IMPRESSION: Mild right glenohumeral and acromioclavicular osteoarthritis. No acute osseous abnormality. Chest/Abdomen/Pelvis CT 02/11/24 07:49 IMPRESSION: 1. No acute fracture or evident visceral organ injury in the chest, abdomen or pelvis. 2. Congestive heart failure with cardiomegaly and mild pulmonary edema. 3. Bilateral nonobstructing nephrolithiasis. 4. Mild diverticulosis. Chest X-Ray 02/13/24 06:23 IMPRESSION: Scattered mild areas of infiltrate and/or atelectasis of the lungs Cardiomegaly, small pericardial effusion Aortic atherosclerosis Osteopenia Labs Labs: Laboratory Results - last 24 hr 02/12/24 02/12/24 02/12/24 07:55 11:22 16:29 WBC RBC Hgb Hct MCV MCH MCHC RDW Plt Count MPV Immature Gran % (Auto) Neut % (Auto) Lymph % (Auto) [place] % (Auto) Eos % (Auto) Baso % (Auto) Lymph # (Auto) [place] # (Auto) Eos # (Auto) Baso # (Auto) Abs Immat Gran (auto) Absolute Neuts (auto) Absolute Nucleated RBC Nucleated RBC % Sodium Potassium Chloride Carbon Dioxide Anion Gap BUN Creatinine Estim Creat Clear Calc Estimated GFR Glucose POC Capillary Glucose 152 H 165 H 157 H Calcium Magnesium Total Bilirubin AST ALT Alkaline Phosphatase Total Protein Albumin 02/12/24 02/13/24 02/13/24 19:52 03:54 07:40 WBC 3.8 L RBC 3.28 L Hgb 9.6 L Hct 30.8 L MCV 93.9 MCH 29.3 MCHC 31.2 L RDW 17.5 H Plt Count 239 MPV 9.6 Immature Gran % (Auto) 0.3 Neut % (Auto) 61.9 Lymph % (Auto) 23.0 [place] % (Auto) 10.6 H Eos % (Auto) 3.4 Baso % (Auto) 0.8 Lymph # (Auto) 0.87 L [place] # (Auto) 0.4 Eos # (Auto) 0.1 Baso # (Auto) 0.0 Abs Immat Gran (auto) 0.01 Absolute Neuts (auto) 2.4 Absolute Nucleated RBC 0.000 Nucleated RBC % 0.0 Sodium 134 L Potassium 4.1 Chloride 101 Carbon Dioxide 29 Anion Gap 4 BUN 17 Creatinine 0.50 L Estim Creat Clear Calc 72 Estimated GFR > 60 Glucose 127 H POC Capillary Glucose 222 H 158 H Calcium 9.0 Magnesium 1.6 Total Bilirubin 0.6 AST 19 ALT 16 Alkaline Phosphatase 90 Total Protein 6.0 L Albumin 3.4 L Quality VTE Prophylaxis VTE prophylaxis: pharmacologic ordered Hospitalist MIPS Advance Care Plan I have confirmed that the patient's Advanced Care Plan is present, code status is documented, or surrogate decision maker is listed in patient medical record.: Yes Medication Reconciliation I have utilized all available resources to obtain, update and review the patients current medications (includes all prescriptions, OTC, herbals, cannabis, and nutritional supplements).: Yes
[2024-02-13] MEDS: FLUoxetine HCL 20 MG CAPSULE 40 MG PO (08:52)
[2024-02-13] MEDS: carvediloL 25 MG TABLET PO ×2 (08:53→20:22)
[2024-02-13] MEDS: SPIRONOLACTONE 50 MG TABLET PO (08:53)
[2024-02-13] MEDS: LIDOCAINE 5% PATCH 1 PATCH TOPICAL (08:53)
[2024-02-13] MEDS: CHOLECALCIFEROL 1,000 UNITS TABLET 2000 UNITS PO (08:53)
[2024-02-13] MEDS: methocarbamoL 500 MG TABLET PO ×2 (08:53→12:39)
[2024-02-13] MEDS: PANTOPRAZOLE 40 MG TABLET PO ×2 (08:53→16:56)
[2024-02-13] MEDS: APIXABAN 5 MG TABLET PO ×2 (08:53→20:20)
[2024-02-13 11:36] LABS: Glucose Point of Care 143 mg/dl (65-105)
[2024-02-13] MEDS: MAGNESIUM SULF 1 GM/D5W 100 ML 1 GM/100 ML BAG IVPB (13:11)
[2024-02-13] MEDS: methocarbamoL 750 MG TABLET PO (16:56)
[2024-02-13] MEDS: CALCIUM CARBONATE (TUMS) 500 MG (200 MG ELEMENTAL) 400 MG PO (16:56)
[2024-02-13 17:11] LABS: Glucose Point of Care 178 mg/dl (65-105)
[2024-02-13] MEDS: oxyCODONE HCL (*CRX) 5 MG TAB IR PO (20:21)
[2024-02-13] MEDS: ROSUVASTATIN 20 MG TABLET PO (20:22)
[2024-02-13 20:49] LABS: Glucose Point of Care 216 mg/dl (65-105)
[2024-02-14] VITALS (12 sets, daily range): BP systolic 127–170; BP diastolic 68–89; PULSE 64–119; RESP 16–20; TEMP 36.1–36.7; O2SAT 93–100
[2024-02-14] MEDS: oxyCODONE HCL (*CRX) 2.5 MG TAB IR PO ×2 (02:54→17:01)
[2024-02-14 04:21] LABS: Basophils Percent Auto 0.4 % (0.2-1.2); Eosinophils Absolute Auto 0.1 K/mm3 (0-0.3); Eosinophils Percent Auto 1.5 % (0-4.4); Hematocrit 31.2 % (37.0-47.0); Hemoglobin 9.8 g/dL (12.0-15.0); Immature Granulocyte Absolute 0.02 K/mm3 (0.00-0.031); Immature Granulocyte Percent A 0.3 % (0-0.5); Lymphocytes Absolute Auto 0.83 K/mm3 (0.9-3.2); Lymphocytes Percent Auto 12.1 % (18.3-44.2); Mean Corpuscular HGB Conc 31.4 g/dl (32-36); Mean Corpuscular Hemoglobin 29.3 pg (26-34); Mean Corpuscular Volume 93.1 fl (80-100); Mean Platelet Volume 9.6 fl (7.4-10.4); Monocytes Absolute Auto 0.5 K/mm3 (0.1-0.6); Neutrophils Absolute Auto 5.4 K/mm3 (1.3-6.7); Neutrophils Percent Auto 78.7 % (45.5-73.1); Platelet Count Result 250 k/mm3 (150-375); Red Blood Count 3.35 M/mm3 (4.2-5.4); Red Cell Distribution Width 17.6 % (11.5-14.5); White Blood Count 6.9 K/mm3 (4.5-10.0)
[2024-02-14 04:39] LABS: Alanine Aminotransferase 15 U/L (6-35); Albumin Level 3.6 g/dL (3.5-5.1); Alkaline Phosphatase 91 U/L (38-126); Anion Gap 4 mmol/L (4-12); Aspartate Amino Transferase 16 U/L (14-36); Bilirubin,Total 0.5 mg/dL (0.2-1.3); Blood Urea Nitrogen 12 mg/dL (7-17); Calcium 9.1 mg/dL (8.4-10.2); Carbon Dioxide 26 mmol/L (22-30); Chloride 103 mmol/L (98-107); Estimated CRCL calculation 72 ml/min; Estimated Glomerular Filt Rate > 60; Glucose 158 mg/dL (65-110); Magnesium 1.4 mg/dL (1.6-2.3); Phosphorus 2.9 mg/dL (2.5-4.5); Sodium 133 mmol/L (137-145)
[2024-02-14 08:05] LABS: Glucose Point of Care 194 mg/dl (65-105)
--- NOTE | 2024-02-14 08:39 | P.PNIM_ITS ---
Progress Note: A&P Assessment and Plan (1) Fall from ground level: Code(s): W18.30XA - Fall on same level, unspecified, initial encounter Status: Acute Assessment and Plan: Ground level fall with no acute fracture. Patient is having significant pain * Activity up with assistance, up to chair * PT and OT were consulted. Will likely need rehab after discharge * Continue tylenol * Change norco to oxycodone 2.5/5mg prn per patient preference * Bowel regimen with MiraLAX and senna * Fall precautions * Change baclofen from 500 QID to 750mg TID and dc Baclofen 5mg hs * Check left knee, tib/fib x-ray * ICE/heat pack prn (2) Atrial fibrillation with rapid ventricular response: Code(s): I48.91 - Unspecified atrial fibrillation Status: Acute Assessment and Plan: Patient has a history of atrial fibrillation on carvedilol 25 mg b.i.d. and Eliquis 5 mg b.i.d.. Usually she is rate controlled in a-fib but went into RVR in the ED requiring metoprolol 5 mg IVP and received her carvedilol 25 mg p.o.. Heart rate improved to upper 101-111. HR also elevated in the setting of pain. Was previously treated with sotolol from [id number], changed to amiodarone in 2019 but had GI side effects. * Telemetry ordered * Resume Coreg, resume Eliquis * Correct electrolyte imbalance * repeat EKG 02/11 afib with rate 100 * 02/11 TTE LVEF 55-60%, severe aortic valve stenosis. Dilated inferior vena cava with <50% collapse upon inspiration consistent with significantly elevated right atrial pressure, 15 mmHg. --Cardiology consult for severe and rate control, consideration of solotol (3) Hypomagnesemia: Code(s): E83.42 - Hypomagnesemia Status: Acute Assessment and Plan: Magnesium was 1.2 on admission * Received 4 mg magnesium replacement * Daily magnesium level * 1 G mag 02/12 for 1.6 * check phos in AM (4) Hypothyroidism: Code(s): E03.9 - Hypothyroidism, unspecified Status: Acute Assessment and Plan: History of hypothyroidism on levothyroxine 50 mcg daily. TSH 3.56 * Continue levothyroxine (5) Type 2 diabetes mellitus without complications: Code(s): E11.9 - Type 2 diabetes mellitus without complications Status: Acute Assessment and Plan: History of diabetes on glipizide 10 mg b.i.d., metformin 500 mg b.i.d. * Holding oral anti diabetics while inpatient * Moderate dose SSI correction based off of BMI * A.c. HS Accu-Cheks * Hypoglycemia protocol ordered (6) Anemia: Qualifiers: Anemia type: other cause Code(s): D64.9 - Anemia, unspecified Status: Acute Assessment and Plan: Patient was recently hospitalized at this institution from 12/29-12/31 after presenting with symptomatic anemia. She received a total of 2 units of packed red blood cells and underwent EGD which found an acute duodenal ulcer, duodenitis, gastritis. Patient was started on Protonix b.i.d. for 6 weeks and then daily permanently. She was instructed to resume anticoagulation is 5-7 days. * Hemoglobin at discharge was 8.9 grams/deciliter. * Hemoglobin this admission has improved to 9.8. * No overt signs of bleeding. * TIBC, iron, vitamin B12, and folate levels were drawn last admission essentially normal. * Monitor on daily CBC transfuse for hemoglobin less than 7 * On home eliquis (7) UTI (urinary tract infection): Code(s): N39.0 - Urinary tract infection, site not specified Status: Acute Assessment and Plan: 02/10 UA positive for nitrites,4+ bacteria, 6-10 WBC's. --02/10 Urine culture growing Klebsiella oxytoca 02/10 -- Continue rocephin pending cultures (8) Pulmonary edema: Code(s): J81.1 - Chronic pulmonary edema Status: Acute Assessment and Plan: continued home spironolactone 01/12 chest x-ray scattered infiltrates and/or atelectasis echocardiogram EF 55-60% (9) Dizziness: Code(s): R42 - Dizziness and giddiness Status: Acute Assessment and Plan: meclizine Time Spent With Patient Time with patient: Greater than 35 minutes Subjective Date/time seen: 02/14/24 08:39 Interval history: 84-year-old female with past medical history is significant for anxiety, atrial fibrillation, GERD, CHF, hyperlipidemia, AYAD on CPAP, hypothyroidism, and type 2 diabetes who presents the emergency room after suffering a ground level fall, found to have UTI and pulmonary edema and no acute injury found on workup. Reports pain all over, especially left knee, neck, and right hip. Burning chest pain improved. Left knee and tib/fib xray with no acute findings, patient can be transfered out of IMU Review of Systems Review of Systems: All systems reviewed & are unremarkable except as noted in HPI and below Exam Narrative: General: well appearing, appears stated age. HEENT: normocephalic, atraumatic. Mucous membranes moist. EOMI, PERRLA, bilateral sclera anicteric, no conjunctival injection. Neck supple without JVD, lymphadenopathy, or bruit. Respiratory: clear to ascultation bilaterally. No rales/rhonic/wheezes. Cardiovascular: Regular rate and rhythm, normal S1-S2 upon ascultation. No murmurs, rubs, or clicks. PMI is nondisplaced, capillary refill less than 3 second. Abdomen: Soft, round, no pulsatile masses, nondistended and nontender. No rebound, no guarding. No CVA tenderness, no hepatosplenomegaly. Bowel sounds present to all four quadrants. No high pitch or tinkling sounds, resonant to percussion. Extremities: No cyanosis, clubbing, or edema present. Pulses are palpable 2/2. Active ROM to all four extremities. Neuro: Alert and orientated x 4. PERRLA. Cranial nerves 2-12 intact without focal deficit. Skin: Warm, dry, and intact, without rash, erythema, or lesion. Psych: pleasant, cooperative, normal speech, normal affect, no hallucinations, no dysarthia Objective Data Vital Signs Vital Signs: Vital Signs - 24 hr 02/13/24 10:00 02/13/24 11:26 02/13/24 12:00 Temperature 98.6 F Pulse Rate 101 H 105 H 112 H Respiratory Rate 16 Blood Pressure 143/103 H Pulse Oximetry 96 Oxygen Delivery 02/13/24 14:00 02/13/24 16:00 02/13/24 15:30 Temperature 97.6 F Pulse Rate 101 H 84 89 Respiratory Rate 16 Blood Pressure 143/99 H Pulse Oximetry 98 Oxygen Delivery 02/13/24 16:47 02/13/24 18:00 02/13/24 20:22 Temperature Pulse Rate 88 96 112 H Respiratory Rate 18 Blood Pressure Pulse Oximetry 98 Oxygen Delivery Room Air 02/13/24 20:00 02/13/24 20:00 02/13/24 22:00 Temperature 98.4 F Pulse Rate 83 113 H 88 Respiratory Rate 16 Blood Pressure 138/53 L Pulse Oximetry 96 Oxygen Delivery 02/13/24 20:15 02/14/24 00:00 02/14/24 00:00 Temperature 98 F Pulse Rate 96 80 Respiratory Rate 16 Blood Pressure 139/86 Pulse Oximetry 94 Oxygen Delivery Room Air 02/14/24 00:10 02/14/24 02:00 02/14/24 04:15 Temperature Pulse Rate 92 Respiratory Rate Blood Pressure Pulse Oximetry Oxygen Delivery Room Air Room Air 02/14/24 04:15 02/14/24 04:00 02/14/24 06:00 Temperature 97.5 F L Pulse Rate 110 H 100 105 H Respiratory Rate 16 Blood Pressure 134/89 Pulse Oximetry 93 Oxygen Delivery 02/14/24 08:00 Temperature 98.1 F Pulse Rate 110 H Respiratory Rate 18 Blood Pressure 127/82 Pulse Oximetry 98 Oxygen Delivery Intake/Output Intake/Output: Intake & Output 02/11/24 02/12/24 02/13/24 02/14/24 23:59 23:59 23:59 23:59 Intake Total 876 092 8171 350 Output Total 141 792 6294 600 Balance -10 380 400 -250 Meds/Results Medications: Active Medications Generic Name Dose Route Start Last Admin Trade Name Freq PRN Reason Stop Dose Admin Acetaminophen 1,000 mg 02/11/24 13:51 02/13/24 12:39 Acetaminophen 500 Mg Tablet PO 1,000 mg Q6H PRN Administration Pain (Scale Score 1-3) Apixaban 5 mg 02/11/24 21:00 02/13/24 20:20 Apixaban 5 Mg Tablet PO 5 mg Q12H MISHA Administration Calcium Carbonate 400 mg 02/11/24 14:01 02/13/24 16:56 Calcium Carbonate (Tums) 500 Mg (200 Mg Elemental) PO 400 mg Q6H PRN Administration Acid Reflux Carvedilol 25 mg 02/11/24 21:00 02/13/24 20:22 Carvedilol 25 Mg Tablet PO 25 mg Q12HR MISHA Administration Dextrose 12.5 gm 02/11/24 09:00 Dextrose 50% 25 Gm/50 Ml Syringe IV PUSH PRN PRN Hypoglycemia Protocol Fluoxetine HCl 40 mg 02/12/24 09:00 02/13/24 08:52 Fluoxetine Hcl 20 Mg Capsule PO 40 mg DAILY MISHA Administration Glucagon 1 mg 02/11/24 09:00 Glucagon For Inj 1 Mg Vial IM PRN PRN Hypoglycemia Protocol Glucose 15 gm 02/11/24 09:00 Glucose Oral Gel 15 Gm Of Glucse In 37.5 Gm Tube PO PRN PRN Hypoglycemia Protocol Ceftriaxone Sodium 1 gm in 50 mls @ 100 mls/hr 02/11/24 08:35 02/13/24 11:38 Rocephin 1 Gm/Ns 50 Ml IVPB Infused Q24H MISHA Infusion Dextrose 1,000 mls @ 100 mls/hr 02/11/24 09:00 Dextrose 5% 1,000 Ml IVPB PRN PRN Hypoglycemia Protocol Insulin Aspart 3 - 6 units 02/11/24 12:00 02/14/24 08:07 Insulin Aspart (*Bkc) 100 Units/Ml SUB-Q Not Given TIDWM [facility] Protocol Levothyroxine Sodium 50 mcg 02/12/24 06:30 02/13/24 06:00 Levothyroxine Sodium 50 Mcg Tablet PO 50 mcg DAILY@0630 MISHA Administration Lidocaine 1 patch 02/11/24 14:19 02/13/24 08:53 Lidocaine 5% Patch TOPICAL 1 patch DAILY MISHA Administration Methocarbamol 750 mg 02/13/24 17:00 02/13/24 16:56 Methocarbamol 750 Mg Tablet PO 750 mg TID MISHA Administration Naloxone HCl 0.1 mg 02/11/24 08:37 Naloxone Hcl 0.4 Mg/Ml Vial IV PUSH Q2M PRN Opiate Reversal Ondansetron HCl 4 mg 02/11/24 08:37 Ondansetron Inj 4 Mg/2 Ml Vial IV PUSH Q6H PRN Nausea And Vomiting Ondansetron HCl 4 mg 02/11/24 14:01 Ondansetron Hcl Odt 4 Mg Tablet PO TID PRN Nausea And Vomiting Oxycodone HCl 2.5 mg 02/13/24 12:57 02/14/24 02:54 Oxycodone Hcl (*Crx) 2.5 Mg Tab Ir PO 2.5 mg Q4H PRN Administration Pain Rated 4-6 Oxycodone HCl 5 mg 02/13/24 12:57 02/13/24 20:21 Oxycodone Hcl (*Crx) 5 Mg Tab Ir PO 5 mg Q4H PRN Administration Pain Rated 7-10 Pantoprazole Sodium 40 mg 02/11/24 17:00 02/13/24 16:56 Pantoprazole 40 Mg Tablet PO 40 mg BID MISHA Administration Polyethylene Glycol 17 gm 02/14/24 09:00 Polyethylene Glycol 3350 17 Gm Powd.Pack PO QAM MISHA Rosuvastatin Calcium 20 mg 02/11/24 21:00 02/13/24 20:22 Rosuvastatin 20 Mg Tablet PO 20 mg HS MISHA Administration Spironolactone 50 mg 02/12/24 09:00 02/13/24 08:53 Spironolactone 50 Mg Tablet PO 50 mg DAILY MISHA Administration Vitamin D 2,000 units 02/12/24 09:00 02/13/24 08:53 Cholecalciferol 1,000 Units Tablet PO 2,000 units DAILY MISHA Administration Radiology Results: ITS Impressions Head CT 02/11/24 00:06 IMPRESSION: 1. No fracture or acute intracranial process. 2. 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 3. Age-related changes including moderate diffuse volume loss and mild to moderate scattered white matter hypoattenuation consistent with chronic small vessel ischemic disease. Cervical Spine CT 02/11/24 00:10 IMPRESSION: 1. Severe cervical spondylosis. No acute osseous abnormality. 2. Mild pulmonary edema in the visualized upper lungs. Hip/Pelvis X-Ray 02/11/24 06:52 IMPRESSION: 1. No acute osseous abnormality. Shoulder X-Ray 02/11/24 06:54 IMPRESSION: Mild right glenohumeral and acromioclavicular osteoarthritis. No acute osseous abnormality. Chest/Abdomen/Pelvis CT 02/11/24 07:49 IMPRESSION: 1. No acute fracture or evident visceral organ injury in the chest, abdomen or pelvis. 2. Congestive heart failure with cardiomegaly and mild pulmonary edema. 3. Bilateral nonobstructing nephrolithiasis. 4. Mild diverticulosis. Chest X-Ray 02/13/24 06:23 IMPRESSION: Scattered mild areas of infiltrate and/or atelectasis of the lungs Cardiomegaly, small pericardial effusion Aortic atherosclerosis Osteopenia Knee X-Ray 02/13/24 14:09 IMPRESSION: No acute osseous finding in the left knee. No radiographic evidence of hardware related complication. Tibia/Fibula X-Ray 02/13/24 14:10 IMPRESSION: No acute osseous finding in the left tibia/fibula. Labs Labs: Laboratory Results - last 24 hr 02/13/24 02/13/24 02/13/24 11:29 15:47 20:30 WBC RBC Hgb Hct MCV MCH MCHC RDW Plt Count MPV Immature Gran % (Auto) Neut % (Auto) Lymph % (Auto) [place] % (Auto) Eos % (Auto) Baso % (Auto) Lymph # (Auto) [place] # (Auto) Eos # (Auto) Baso # (Auto) Abs Immat Gran (auto) Absolute Neuts (auto) Absolute Nucleated RBC Nucleated RBC % Sodium Potassium Chloride Carbon Dioxide Anion Gap BUN Creatinine Estim Creat Clear Calc Estimated GFR Glucose POC Capillary Glucose 143 H 178 H 216 H Calcium Phosphorus Magnesium Total Bilirubin AST ALT Alkaline Phosphatase Total Protein Albumin 02/14/24 02/14/24 02/14/24 03:53 03:55 07:59 WBC 6.9 RBC 3.35 L Hgb 9.8 L Hct 31.2 L MCV 93.1 MCH 29.3 MCHC 31.4 L RDW 17.6 H Plt Count 250 MPV 9.6 Immature Gran % (Auto) 0.3 Neut % (Auto) 78.7 H Lymph % (Auto) 12.1 L [place] % (Auto) 7.0 Eos % (Auto) 1.5 Baso % (Auto) 0.4 Lymph # (Auto) 0.83 L [place] # (Auto) 0.5 Eos # (Auto) 0.1 Baso # (Auto) 0.0 Abs Immat Gran (auto) 0.02 Absolute Neuts (auto) 5.4 Absolute Nucleated RBC 0.000 Nucleated RBC % 0.0 Sodium 133 L Potassium 4.0 Chloride 103 Carbon Dioxide 26 Anion Gap 4 BUN 12 D Creatinine 0.50 L Estim Creat Clear Calc 72 Estimated GFR > 60 Glucose 158 H POC Capillary Glucose 194 H Calcium 9.1 Phosphorus 2.9 Magnesium 1.4 L Total Bilirubin 0.5 AST 16 ALT 15 Alkaline Phosphatase 91 Total Protein 6.0 L Albumin 3.6 Quality VTE Prophylaxis VTE prophylaxis: pharmacologic ordered
[2024-02-14] MEDS: KETOROLAC 15 MG/ML VIAL (*BKC) IV PUSH ×3 (09:27→20:39)
[2024-02-14] MEDS: ACETAMINOPHEN 325 MG TABLET 650 MG PO ×3 (09:28→20:37)
[2024-02-14] MEDS: LIDOCAINE 5% PATCH 1 PATCH TOPICAL (09:29)
[2024-02-14] MEDS: methocarbamoL 750 MG TABLET PO ×3 (09:29→16:59)
[2024-02-14] MEDS: carvediloL 25 MG TABLET PO ×2 (09:29→20:37)
[2024-02-14] MEDS: APIXABAN 5 MG TABLET PO ×2 (09:29→20:37)
[2024-02-14] MEDS: LEVOTHYROXINE SODIUM 50 MCG TABLET PO (09:29)
[2024-02-14] MEDS: FLUoxetine HCL 20 MG CAPSULE 40 MG PO (09:29)
[2024-02-14] MEDS: SPIRONOLACTONE 50 MG TABLET PO (09:29)
[2024-02-14] MEDS: PANTOPRAZOLE 40 MG TABLET PO ×2 (09:29→16:59)
[2024-02-14] MEDS: CHOLECALCIFEROL 1,000 UNITS TABLET 2000 UNITS PO (09:29)
[2024-02-14] MEDS: LIDOCAINE 5% PATCH 1 PATCH TRANSDERM (09:30)
[2024-02-14] MEDS: MAGNESIUM SULF 2 GM/WATER 50ML 2 GM/50 ML BAG IVPB (11:31)
[2024-02-14] MEDS: MECLIZINE HCL 6.25 MG TABLET PO ×3 (11:45→16:58)
[2024-02-14] MEDS: INSULIN ASPART (*BKC) 100 UNITS/ML SUB-Q (11:45)
--- NOTE | 2024-02-14 11:57 | PM.CNCAR ---
Assessment and Plan Assessment and plan (1) Atrial fibrillation: Code(s): I48.91 - Unspecified atrial fibrillation Status: Acute Plan AFib with RVR Mechanical fall recurrent History of ischemic stroke History of nonischemic cardiomyopathy History of PE and diabetes mellitus type 2 Diabetes mellitus type 2 Moderate to severe aortic stenosis with low-flow Plan Apixaban 5 mg b.i.d. Carvedilol 25 mg b.i.d. Add diltiazem 30 mg t.i.d. History of Present Illness History of Present Illness Consult date/time: 02/14/24 11:57 Reason For Visit: Atrial Fibrillation/Ground Level Fall Narrative: 84-year-old female patient presented to the was a fall. Patient was using a walker when she lost her balance and had a fall. Patient had recurrent episodes of fall and none of them she had dizziness or loss of consciousness. She has a history of nonischemic cardiomyopathy with recovery of ejection fraction on last echocardiogram. She has a history of moderate aortic stenosis and atrial fibrillation. She was recently admitted for a fall and hip fracture December 2023. 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) Subclinical hypothyroidism Type 2 diabetes mellitus without complications [place] diverticulum Surgical History Surgical History History of cholecystectomy History of hip surgery History of hysterectomy History of open reduction and internal fixation (ORIF) procedure repair left femur fracture History of tonsillectomy Family History Family History Father Family history of cardiovascular disease Family history of coronary artery disease Depression Mother Family history of cardiovascular disease Family history of coronary artery disease Grandparent Cerebrovascular accident Social History Social History (Updated 02/11/24 @ 14:07 by Molly Weiss APRN) Social History: Surrogate medical decision maker: Homer Culp, son. Code status: DNR She is and lost a son a few years ago. Smoking status: Never smoker Second hand tobacco smoke exposure: No Alcohol intake: never Substance use: never Substance use type: does not use Do You Feel Safe in your Home?: Yes Lack of Transportation: No Lack of Food: Never True Current Housing: I Have Housing Concerned About Future Housing: No Difficulty Paying Gas/Electric Bills: No Difficulty Paying for Meds: No Currently Unemployed: No Education: Grade School Difficulty w/ Childcare or Family Care: No Occupation/Education: retired Spiritual care concerns: No Meds Home Medications and Allergies Home Medications Medication Instructions Recorded Confirmed Type carvedilol 25 mg tablet 25 mg PO BID 01/18/19 02/11/24 History apixaban 5 mg tablet (Eliquis) 5 mg PO Q12H 06/28/19 02/11/24 History rosuvastatin 20 mg tablet 20 mg PO HS 12/14/19 02/11/24 History levothyroxine 25 mcg tablet 50 mcg PO DAILY #180 tabs 04/27/20 02/11/24 Rx (Synthroid) cholecalciferol (vitamin D3) 25 50 mcg PO DAILY 05/12/22 02/11/24 History mcg (1,000 unit) capsule fluoxetine 20 mg capsule 40 mg PO DAILY 05/12/22 02/11/24 History glipizide 10 mg tablet 10 mg PO BID 05/12/22 02/11/24 History spironolactone 25 mg tablet 50 mg PO DAILY 05/12/22 02/11/24 History lidocaine 5 % topical patch 1 patch topical DAILY #15 ea 10/04/22 02/11/24 Rx (Lidoderm) acetaminophen 500 mg tablet 1,000 mg PO Q6H PRN Pain (Scale 12/30/23 02/11/24 History Score 1-3) calcium carbonate (Tums) 400 mg PO Q6H PRN Acid Reflux 12/30/23 02/11/24 History metformin 500 mg tablet 500 mg PO BIDWMEAL 12/30/23 02/11/24 History methocarbamol 500 mg tablet 500 mg PO TID 12/30/23 02/11/24 History baclofen 5 mg tablet 5 mg PO HS 02/11/24 02/11/24 History ondansetron 4 mg disintegrating 4 mg PO TID PRN Nausea And Vomiting 02/11/24 02/11/24 History tablet oxycodone 5 mg tablet 5 mg PO Q4-5H PRN Pain (Scale 02/11/24 02/11/24 History Score 4-6) pantoprazole 40 mg tablet,delayed 40 mg PO BID 02/11/24 02/11/24 History release (Protonix) Allergies Allergy/AdvReac Type Severity Reaction Status Date / Time lisinopril Allergy Severe cough Verified 02/01/24 15:43 amlodipine Allergy Difficulty Verified 02/01/24 15:43 Breathing MILI Inhibitors AdvReac Severe cough Verified 02/01/24 15:43 atorvastatin AdvReac Mild Muscle Pain Verified 02/01/24 15:43 citalopram AdvReac Mild Unknown Verified 02/01/24 15:43 hydrochlorothiazide AdvReac Dizziness Verified 02/01/24 15:43 Vital Signs Vital Signs - 24 hr 02/13/24 12:00 02/13/24 14:00 02/13/24 16:00 Temperature Pulse Rate 112 H 101 H 84 Respiratory Rate Blood Pressure Pulse Oximetry Oxygen Delivery 02/13/24 15:30 02/13/24 16:47 02/13/24 18:00 Temperature 36.4 C Pulse Rate 89 88 96 Respiratory Rate 16 18 Blood Pressure 143/99 H Pulse Oximetry 98 98 Oxygen Delivery Room Air 02/13/24 20:22 02/13/24 20:00 02/13/24 20:00 Temperature 36.9 C Pulse Rate 112 H 83 113 H Respiratory Rate 16 Blood Pressure 138/53 L Pulse Oximetry 96 Oxygen Delivery 02/13/24 22:00 02/13/24 20:15 02/14/24 00:00 Temperature 36.6 C Pulse Rate 88 96 Respiratory Rate 16 Blood Pressure 139/86 Pulse Oximetry 94 Oxygen Delivery Room Air 02/14/24 00:00 02/14/24 00:10 02/14/24 02:00 Temperature Pulse Rate 80 92 Respiratory Rate Blood Pressure Pulse Oximetry Oxygen Delivery Room Air 02/14/24 04:15 02/14/24 04:15 02/14/24 04:00 Temperature 36.4 C L Pulse Rate 110 H 100 Respiratory Rate 16 Blood Pressure 134/89 Pulse Oximetry 93 Oxygen Delivery Room Air 02/14/24 06:00 02/14/24 08:00 Temperature 36.7 C Pulse Rate 105 H 110 H Respiratory Rate 18 Blood Pressure 127/82 Pulse Oximetry 98 Oxygen Delivery Exam Const: General: comfortable and no acute distress Other: Able to lie flat HENMT: Face/Nose/Sinus: Normal nares present and no epistaxis Mouth: Yes moist mucous membranes Eyes: Sclera: sclerae normal Pupils: Equal, round and reactive pupils present Neck: Neck: supple and no JVD Carotids: no bruits Resp: Auscultation: clear to auscultation bilaterally and lung sounds not diminished Other: No chest wall tenderness Cardio: Rate: tachycardic Rhythm: abnormal rhythm irregularly irregular Heart sounds: no gallops, no murmurs and no rubs GI: GI Palp: Yes Soft to palpation and No Tenderness to palpation present (GI) Auscultation: normal bowel sounds Skin: General skin exam: normal color, rashes and/or lesions noted and no erythema Other: Warm Neuro: Cranial nerves: Yes Equal, round and reactive pupils present Speech: normal speech Other: No obvious focal deficit or facial asymmetry Extrem: General: no edema Other: Normal capillary refills Intact distal pulses. Results Labs and Meds 02/14/24 03:53 02/14/24 03:55 Lab results: Cardiac Enzymes 02/14/24 Range/Units 03:55 AST 16 (14-36) U/L CBC 02/14/24 Range/Units 03:53 WBC 6.9 (4.5-10.0) K/mm3 RBC 3.35 L (4.2-5.4) M/mm3 Hgb 9.8 L (12.0-15.0) g/dL Hct 31.2 L (37.0-47.0) % Plt Count 250 (150-375) k/mm3 Lymph # (Auto) 0.83 L (0.9-3.2) K/mm3 [place] # (Auto) 0.5 (0.1-0.6) K/mm3 Eos # (Auto) 0.1 (0-0.3) K/mm3 Baso # (Auto) 0.0 (0.0-0.1) K/mm3 Comprehensive Metabolic Panel 02/14/24 Range/Units 03:55 Sodium 133 L (137-145) mmol/L Potassium 4.0 (3.4-5.0) mmol/L Chloride 103 (98-107) mmol/L Carbon Dioxide 26 (22-30) mmol/L BUN 12 D (7-17) mg/dL Creatinine 0.50 L (0.7-1.0) mg/dL Glucose 158 H (65-110) mg/dL Calcium 9.1 (8.4-10.2) mg/dL AST 16 (14-36) U/L ALT 15 (6-35) U/L Alkaline Phosphatase 91 (38-126) U/L Total Protein 6.0 L (6.3-8.2) g/dL Albumin 3.6 (3.5-5.1) g/dL Intake and Output 02/13/24 02/14/24 02/14/24 23:59 07:59 15:59 Intake Total 790 350 300 Output Total 275 600 Balance 515 -250 300 Intake: Oral 790 350 300 Output: Urine 600 Catheter Urine 275 External/Condom 275 Other: Number of Bowel Movements Today 1 Patient Weight 02/14/24 23:59 Weight 84.5 kg
[2024-02-14 12:26] LABS: Glucose Point of Care 249 mg/dl (65-105)
--- NOTE | 2024-02-14 14:25 | PC.NURSE ---
Report received by ARMANI Wilson. Patient transferring to room 331-2.
[2024-02-14 16:35] LABS: Glucose Point of Care 127 mg/dl (65-105)
[2024-02-14] MEDS: ROSUVASTATIN 20 MG TABLET PO (20:37)
[2024-02-14] MEDS: SENNA/DOCUSATE SODIUM TABLET 1 TAB PO (20:37)
--- NOTE | 2024-02-14 20:55 | PC.NURSE ---
This patient, Prema Pearce, was received from [[facility] ] on 02/14/24 at 1505. Patient/family oriented to unit policies and routines
[2024-02-14 20:59] LABS: Glucose Point of Care 178 mg/dl (65-105)
[2024-02-15] VITALS (11 sets, daily range): BP systolic 116–162; BP diastolic 81–90; PULSE 64–110; RESP 14–22; TEMP 35.7–36.5; O2SAT 95–96
[2024-02-15] MEDS: ACETAMINOPHEN 325 MG TABLET 650 MG PO ×4 (01:54→20:55)
[2024-02-15] MEDS: LEVOTHYROXINE SODIUM 50 MCG TABLET PO (05:46)
[2024-02-15] MEDS: ONDANSETRON HCL ODT 4 MG TABLET PO (05:46)
[2024-02-15 07:18] LABS: Basophils Percent Auto 0.7 % (0.2-1.2); Eosinophils Absolute Auto 0.1 K/mm3 (0-0.3); Eosinophils Percent Auto 1.8 % (0-4.4); Hematocrit 32.9 % (37.0-47.0); Immature Granulocyte Absolute 0.02 K/mm3 (0.00-0.031); Immature Granulocyte Percent A 0.4 % (0-0.5); Lymphocytes Absolute Auto 0.98 K/mm3 (0.9-3.2); Lymphocytes Percent Auto 21.6 % (18.3-44.2); Mean Corpuscular HGB Conc 30.4 g/dl (32-36); Mean Corpuscular Hemoglobin 28.7 pg (26-34); Mean Corpuscular Volume 94.5 fl (80-100); Mean Platelet Volume 9.9 fl (7.4-10.4); Monocytes Absolute Auto 0.4 K/mm3 (0.1-0.6); Monocytes Percent Auto 8.6 % (2.6-8.5); Neutrophils Percent Auto 66.9 % (45.5-73.1); Platelet Count Result 252 k/mm3 (150-375); Red Blood Count 3.48 M/mm3 (4.2-5.4); Red Cell Distribution Width 17.5 % (11.5-14.5); White Blood Count 4.5 K/mm3 (4.5-10.0)
[2024-02-15 07:29] LABS: Alanine Aminotransferase 14 U/L (6-35); Albumin Level 3.7 g/dL (3.5-5.1); Alkaline Phosphatase 93 U/L (38-126); Anion Gap 5 mmol/L (4-12); Aspartate Amino Transferase 17 U/L (14-36); Bilirubin,Total 0.6 mg/dL (0.2-1.3); Blood Urea Nitrogen 21 mg/dL (7-17); Calcium 9.4 mg/dL (8.4-10.2); Carbon Dioxide 26 mmol/L (22-30); Chloride 103 mmol/L (98-107); Estimated CRCL calculation 53 ml/min; Estimated Glomerular Filt Rate > 60; Glucose 166 mg/dL (65-110); Magnesium 1.9 mg/dL (1.6-2.3); Potassium 4.9 mmol/L (3.4-5.0); Sodium 134 mmol/L (137-145)
[2024-02-15 07:46] LABS: Glucose Point of Care 165 mg/dl (65-105)
[2024-02-15] MEDS: FLUoxetine HCL 20 MG CAPSULE 40 MG PO (08:41)
[2024-02-15] MEDS: SPIRONOLACTONE 50 MG TABLET PO (08:41)
[2024-02-15] MEDS: MECLIZINE HCL 6.25 MG TABLET PO ×3 (08:41→17:17)
[2024-02-15] MEDS: APIXABAN 5 MG TABLET PO ×2 (08:41→20:55)
[2024-02-15] MEDS: PANTOPRAZOLE 40 MG TABLET PO ×2 (08:41→17:17)
[2024-02-15] MEDS: CHOLECALCIFEROL 1,000 UNITS TABLET 2000 UNITS PO (08:42)
[2024-02-15] MEDS: carvediloL 25 MG TABLET PO (08:42)
[2024-02-15] MEDS: LIDOCAINE 5% PATCH 1 PATCH TOPICAL (08:43)
[2024-02-15] MEDS: LIDOCAINE 5% PATCH 1 PATCH TRANSDERM (08:49)
[2024-02-15] MEDS: methocarbamoL 750 MG TABLET PO ×3 (08:58→17:17)
[2024-02-15] MEDS: CALCIUM CARBONATE (TUMS) 500 MG (200 MG ELEMENTAL) 400 MG PO (10:22)
[2024-02-15] MEDS: levoFLOXacin 750 MG TABLET PO (10:22)
--- NOTE | 2024-02-15 10:30 | P.PNIM_ITS ---
Progress Note: A&P Assessment and Plan (1) Fall from ground level: Code(s): W18.30XA - Fall on same level, unspecified, initial encounter Status: Acute Assessment and Plan: Ground level fall with no acute fracture. Patient is having significant pain * Activity up with assistance, up to chair * PT and OT were consulted. Will likely need rehab after discharge * Continue tylenol * Change norco to oxycodone 2.5/5mg prn per patient preference * Bowel regimen with MiraLAX and senna * Fall precautions * Change baclofen from 500 QID to 750mg TID and dc Baclofen 5mg hs * Check left knee, tib/fib x-ray * ICE/heat pack prn * patient having trouble working with PT and OT due to pain and feeling hopeless about situation (2) Atrial fibrillation with rapid ventricular response: Code(s): I48.91 - Unspecified atrial fibrillation Status: Acute Assessment and Plan: Patient has a history of atrial fibrillation on carvedilol 25 mg b.i.d. and Eliquis 5 mg b.i.d.. Usually she is rate controlled in a-fib but went into RVR in the ED requiring metoprolol 5 mg IVP and received her carvedilol 25 mg p.o.. Heart rate improved to upper 101-111. HR also elevated in the setting of pain. Was previously treated with sotolol from [id number], changed to amiodarone in 2019 but had GI side effects. * Telemetry ordered * Resume Coreg, resume Eliquis * Correct electrolyte imbalance * repeat EKG 02/11 afib with rate 100 * 02/11 TTE LVEF 55-60%, severe aortic valve stenosis. Dilated inferior vena cava with <50% collapse upon inspiration consistent with significantly elevated right atrial pressure, 15 mmHg. --Cardiology consult for severe and rate control, Plan Apixaban 5 mg b.i.d. Carvedilol 25 mg b.i.d. Add diltiazem 30 mg t.i.d. (3) Hypomagnesemia: Code(s): E83.42 - Hypomagnesemia Status: Acute Assessment and Plan: Magnesium was 1.2 on admission * Received 4 mg magnesium replacement * Daily magnesium level * 1 G mag 02/12 for 1.6 improving (4) Hypothyroidism: Code(s): E03.9 - Hypothyroidism, unspecified Status: Acute Assessment and Plan: History of hypothyroidism on levothyroxine 50 mcg daily. TSH 3.56 * Continue levothyroxine (5) Type 2 diabetes mellitus without complications: Code(s): E11.9 - Type 2 diabetes mellitus without complications Status: Acute Assessment and Plan: History of diabetes on glipizide 10 mg b.i.d., metformin 500 mg b.i.d. * Holding oral anti diabetics while inpatient * Moderate dose SSI correction based off of BMI * A.c. HS Accu-Cheks * Hypoglycemia protocol ordered (6) Anemia: Qualifiers: Anemia type: other cause Code(s): D64.9 - Anemia, unspecified Status: Acute Assessment and Plan: Patient was recently hospitalized at this institution from 12/29-12/31 after presenting with symptomatic anemia. She received a total of 2 units of packed red blood cells and underwent EGD which found an acute duodenal ulcer, duodenitis, gastritis. Patient was started on Protonix b.i.d. for 6 weeks and then daily permanently. She was instructed to resume anticoagulation is 5-7 days. * Hemoglobin at discharge was 8.9 grams/deciliter. * Hemoglobin this admission has improved to 9.8. * No overt signs of bleeding. * TIBC, iron, vitamin B12, and folate levels were drawn last admission essentially normal. * Monitor on daily CBC transfuse for hemoglobin less than 7 * On home eliquis no signs of acute bleeding, hemoglobin stable (7) UTI (urinary tract infection): Code(s): N39.0 - Urinary tract infection, site not specified Status: Acute Assessment and Plan: 02/10 UA positive for nitrites,4+ bacteria, 6-10 WBC's. --02/10 Urine culture growing Klebsiella oxytoca 02/10 -- transition to 7 days a Levaquin p.o. (8) Pulmonary edema: Code(s): J81.1 - Chronic pulmonary edema Status: Acute Assessment and Plan: continued home spironolactone 01/12 chest x-ray scattered infiltrates and/or atelectasis echocardiogram EF 55-60% (9) Dizziness: Code(s): R42 - Dizziness and giddiness Status: Acute Assessment and Plan: meclizine Time Spent With Patient Time with patient: Greater than 35 minutes Subjective Date/time seen: 02/15/24 10:30 Interval history: 84-year-old female with past medical history is significant for anxiety, atrial fibrillation, GERD, CHF, hyperlipidemia, AYAD on CPAP, hypothyroidism, and type 2 diabetes who presents the emergency room after suffering a ground level fall, found to have UTI and pulmonary edema and no acute injury found on workup. IV antibiotics transition to Levaquin p.o. for UTI patient needing PT and OT evaluation for discharge planning patient is visibly distraught today, home Xanax ordered, offered pastoral care, and started melatonin to help with sleep Review of Systems Review of Systems: All systems reviewed & are unremarkable except as noted in HPI and below Exam Narrative: General: well appearing, appears stated age. HEENT: normocephalic, atraumatic. Mucous membranes moist. EOMI, PERRLA, bilateral sclera anicteric, no conjunctival injection. Neck supple without JVD, lymphadenopathy, or bruit. Respiratory: clear to ascultation bilaterally. No rales/rhonic/wheezes. Cardiovascular: Regular rate and rhythm, normal S1-S2 upon ascultation. No murmurs, rubs, or clicks. PMI is nondisplaced, capillary refill less than 3 second. Abdomen: Soft, round, no pulsatile masses, nondistended and nontender. No rebound, no guarding. No CVA tenderness, no hepatosplenomegaly. Bowel sounds present to all four quadrants. No high pitch or tinkling sounds, resonant to percussion. Extremities: No cyanosis, clubbing, or edema present. Pulses are palpable 2/2. Active ROM to all four extremities. Neuro: Alert and orientated x 4. PERRLA. Cranial nerves 2-12 intact without focal deficit. Skin: Warm, dry, and intact, without rash, erythema, or lesion. Psych: pleasant, cooperative, normal speech, normal affect, no hallucinations, no dysarthia Objective Data Vital Signs Vital Signs: Vital Signs - 24 hr 02/14/24 12:00 02/14/24 14:00 02/14/24 16:00 Temperature 97.0 F L Pulse Rate 119 H 82 64 Respiratory Rate 20 Blood Pressure 170/68 H Pulse Oximetry 100 Oxygen Delivery 02/14/24 20:37 02/14/24 21:33 02/15/24 06:00 Temperature 97.5 F L 97.4 F L Pulse Rate 72 68 73 Respiratory Rate 20 22 H Blood Pressure 136/81 162/90 H Pulse Oximetry 96 95 Oxygen Delivery 02/15/24 00:00 02/15/24 04:00 02/15/24 08:42 Temperature Pulse Rate 76 75 64 Respiratory Rate Blood Pressure Pulse Oximetry Oxygen Delivery 02/15/24 08:58 Temperature Pulse Rate Respiratory Rate Blood Pressure Pulse Oximetry Oxygen Delivery Room Air Intake/Output Intake/Output: Intake & Output 02/12/24 02/13/24 02/14/24 02/15/24 23:59 23:59 23:59 23:59 Intake Total 830 1550 850 340 Output Total 450 1150 600 100 Balance 380 400 250 240 Meds/Results Medications: Active Medications Generic Name Dose Route Start Last Admin Trade Name Freq PRN Reason Stop Dose Admin Acetaminophen 650 mg 02/14/24 09:00 02/15/24 08:40 Acetaminophen 325 Mg Tablet PO 650 mg Q6H MISHA Administration Apixaban 5 mg 02/11/24 21:00 02/15/24 08:41 Apixaban 5 Mg Tablet PO 5 mg Q12H MISHA Administration Calcium Carbonate 400 mg 02/11/24 14:01 02/15/24 10:22 Calcium Carbonate (Tums) 500 Mg (200 Mg Elemental) PO 400 mg Q6H PRN Administration Acid Reflux Carvedilol 25 mg 02/11/24 21:00 02/15/24 08:42 Carvedilol 25 Mg Tablet PO 25 mg Q12HR MISHA Administration Dextrose 12.5 gm 02/11/24 09:00 Dextrose 50% 25 Gm/50 Ml Syringe IV PUSH PRN PRN Hypoglycemia Protocol Fluoxetine HCl 40 mg 02/12/24 09:00 02/15/24 08:41 Fluoxetine Hcl 20 Mg Capsule PO 40 mg DAILY MISHA Administration Glucagon 1 mg 02/11/24 09:00 Glucagon For Inj 1 Mg Vial IM PRN PRN Hypoglycemia Protocol Glucose 15 gm 02/11/24 09:00 Glucose Oral Gel 15 Gm Of Glucse In 37.5 Gm Tube PO PRN PRN Hypoglycemia Protocol Dextrose 1,000 mls @ 100 mls/hr 02/11/24 09:00 Dextrose 5% 1,000 Ml IVPB PRN PRN Hypoglycemia Protocol Insulin Aspart 3 - 6 units 02/11/24 12:00 02/15/24 08:36 Insulin Aspart (*Bkc) 100 Units/Ml SUB-Q Not Given TIDWM [facility] Protocol Levofloxacin 750 mg 02/15/24 10:30 02/15/24 10:22 Levofloxacin 750 Mg Tablet PO 02/21/24 09:01 750 mg DAILY MISHA Administration Levothyroxine Sodium 50 mcg 02/12/24 06:30 02/15/24 05:46 Levothyroxine Sodium 50 Mcg Tablet PO 50 mcg DAILY@0630 MISHA Administration Lidocaine 1 patch 02/11/24 14:19 02/15/24 08:43 Lidocaine 5% Patch TOPICAL 1 patch DAILY MISHA Administration Lidocaine 1 patch 02/14/24 09:00 02/15/24 08:49 Lidocaine 5% Patch TRANSDERM 1 patch DAILY [facility] Administration Meclizine HCl 6.25 mg 02/14/24 10:30 02/15/24 08:41 Meclizine Hcl 6.25 Mg Tablet PO 6.25 mg TID [facility] Administration Methocarbamol 750 mg 02/13/24 17:00 02/15/24 08:58 Methocarbamol 750 Mg Tablet PO 750 mg TID [facility] Administration Naloxone HCl 0.1 mg 02/11/24 08:37 Naloxone Hcl 0.4 Mg/Ml Vial IV PUSH Q2M PRN Opiate Reversal Ondansetron HCl 4 mg 02/11/24 08:37 Ondansetron Inj 4 Mg/2 Ml Vial IV PUSH Q6H PRN Nausea And Vomiting Ondansetron HCl 4 mg 02/11/24 14:01 02/15/24 05:46 Ondansetron Hcl Odt 4 Mg Tablet PO 4 mg TID PRN Administration Nausea And Vomiting Oxycodone HCl 2.5 mg 02/13/24 12:57 02/14/24 17:01 Oxycodone Hcl (*Crx) 2.5 Mg Tab Ir PO 2.5 mg Q4H PRN Administration Pain Rated 4-6 Oxycodone HCl 5 mg 02/13/24 12:57 02/13/24 20:21 Oxycodone Hcl (*Crx) 5 Mg Tab Ir PO 5 mg Q4H PRN Administration Pain Rated 7-10 Pantoprazole Sodium 40 mg 02/11/24 17:00 02/15/24 08:41 Pantoprazole 40 Mg Tablet PO 40 mg BID MISHA Administration Polyethylene Glycol 17 gm 02/14/24 09:00 02/15/24 08:43 Polyethylene Glycol 3350 17 Gm Powd.Pack PO Not Given QAM [facility] Rosuvastatin Calcium 20 mg 02/11/24 21:00 02/14/24 20:37 Rosuvastatin 20 Mg Tablet PO 20 mg HS MISHA Administration Senna/Docusate Sodium 1 tab 02/14/24 21:00 02/14/24 20:37 Senna/Docusate Sodium Tablet PO 1 tab HS MISHA Administration Spironolactone 50 mg 02/12/24 09:00 02/15/24 08:41 Spironolactone 50 Mg Tablet PO 50 mg DAILY MISHA Administration Vitamin D 2,000 units 02/12/24 09:00 02/15/24 08:42 Cholecalciferol 1,000 Units Tablet PO 2,000 units DAILY MISHA Administration Radiology Results: ITS Impressions Head CT 02/11/24 00:06 IMPRESSION: 1. No fracture or acute intracranial process. 2. 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 3. Age-related changes including moderate diffuse volume loss and mild to moderate scattered white matter hypoattenuation consistent with chronic small vessel ischemic disease. Cervical Spine CT 02/11/24 00:10 IMPRESSION: 1. Severe cervical spondylosis. No acute osseous abnormality. 2. Mild pulmonary edema in the visualized upper lungs. Hip/Pelvis X-Ray 02/11/24 06:52 IMPRESSION: 1. No acute osseous abnormality. Shoulder X-Ray 02/11/24 06:54 IMPRESSION: Mild right glenohumeral and acromioclavicular osteoarthritis. No acute osseous abnormality. Chest/Abdomen/Pelvis CT 02/11/24 07:49 IMPRESSION: 1. No acute fracture or evident visceral organ injury in the chest, abdomen or pelvis. 2. Congestive heart failure with cardiomegaly and mild pulmonary edema. 3. Bilateral nonobstructing nephrolithiasis. 4. Mild diverticulosis. Chest X-Ray 02/13/24 06:23 IMPRESSION: Scattered mild areas of infiltrate and/or atelectasis of the lungs Cardiomegaly, small pericardial effusion Aortic atherosclerosis Osteopenia Knee X-Ray 02/13/24 14:09 IMPRESSION: No acute osseous finding in the left knee. No radiographic evidence of hardware related complication. Tibia/Fibula X-Ray 02/13/24 14:10 IMPRESSION: No acute osseous finding in the left tibia/fibula. Labs Labs: Laboratory Results - last 24 hr 02/14/24 02/14/24 02/14/24 11:15 16:21 19:46 WBC RBC Hgb Hct MCV MCH MCHC RDW Plt Count MPV Immature Gran % (Auto) Neut % (Auto) Lymph % (Auto) Andrew % (Auto) Eos % (Auto) Baso % (Auto) Lymph # (Auto) Andrew # (Auto) Eos # (Auto) Baso # (Auto) Abs Immat Gran (auto) Absolute Neuts (auto) Absolute Nucleated RBC Nucleated RBC % Sodium Potassium Chloride Carbon Dioxide Anion Gap BUN Creatinine Estim Creat Clear Calc Estimated GFR Glucose POC Capillary Glucose 249 H 127 H 178 H Calcium Magnesium Total Bilirubin AST ALT Alkaline Phosphatase Total Protein Albumin 02/15/24 02/15/24 06:15 07:40 WBC 4.5 RBC 3.48 L Hgb 10.0 L Hct 32.9 L MCV 94.5 MCH 28.7 MCHC 30.4 L RDW 17.5 H Plt Count 252 MPV 9.9 Immature Gran % (Auto) 0.4 Neut % (Auto) 66.9 Lymph % (Auto) 21.6 Andrew % (Auto) 8.6 H Eos % (Auto) 1.8 Baso % (Auto) 0.7 Lymph # (Auto) 0.98 Andrew # (Auto) 0.4 Eos # (Auto) 0.1 Baso # (Auto) 0.0 Abs Immat Gran (auto) 0.02 Absolute Neuts (auto) 3.0 Absolute Nucleated RBC 0.000 Nucleated RBC % 0.0 Sodium 134 L Potassium 4.9 Chloride 103 Carbon Dioxide 26 Anion Gap 5 BUN 21 H Creatinine 0.70 Estim Creat Clear Calc 53 Estimated GFR > 60 Glucose 166 H POC Capillary Glucose 165 H Calcium 9.4 Magnesium 1.9 Total Bilirubin 0.6 AST 17 ALT 14 Alkaline Phosphatase 93 Total Protein 6.0 L Albumin 3.7 Quality VTE Prophylaxis VTE prophylaxis: pharmacologic ordered
[2024-02-15 11:27] LABS: Glucose Point of Care 207 mg/dl (65-105)
[2024-02-15] MEDS: ALPRAZolam (*CRX) 0.5 MG TABLET PO ×2 (11:34→20:55)
[2024-02-15] MEDS: INSULIN ASPART (*BKC) 100 UNITS/ML SUB-Q (11:40)
--- NOTE | 2024-02-15 11:49 | P.PNCA_ITS ---
Progress Note: A&P Assessment and Plan (1) Atrial fibrillation: Code(s): I48.91 - Unspecified atrial fibrillation Status: Acute Plan AFib with RVR Mechanical fall recurrent History of ischemic stroke History of nonischemic cardiomyopathy History of PE and diabetes mellitus type 2 Diabetes mellitus type 2 Moderate to severe aortic stenosis with low-flow Plan Apixaban 5 mg b.i.d. Will shift from coreg to metoprolol which will hopefully provide better rate control. Metoprolol can be up titrated as needed. Will follow along p.r.n. Subjective Date/time seen: 02/15/24 11:49 Interval history: Cardiology follow up for atrial fibrillation Date of service 02/15/2024: Heart rate stable on telemetry. Does have some intermittent tachycardia but she denies any palpitations, shortness of breath, chest pain. She is very anxious/tearful. Review of Systems Review of Systems: All systems reviewed & are unremarkable except as noted in HPI and below Exam Const: General: comfortable and no acute distress Other: Able to lie flat HENMT: Face/Nose/Sinus: Normal nares present and no epistaxis Mouth: Yes moist mucous membranes Eyes: Sclera: sclerae normal Pupils: Equal, round and reactive pupils present Neck: Neck: supple and no JVD Carotids: no bruits Resp: Auscultation: clear to auscultation bilaterally and lung sounds not diminished Other: No chest wall tenderness Cardio: Rate: tachycardic Rhythm: abnormal rhythm irregularly irregular Heart sounds: no gallops, no murmurs and no rubs GI: Auscultation: normal bowel sounds Skin: General skin exam: normal color, rashes and/or lesions noted and no erythema Other: Warm Neuro: Cranial nerves: Yes Equal, round and reactive pupils present Speech: normal speech Other: No obvious focal deficit or facial asymmetry Extrem: General: no edema Other: Normal capillary refills Intact distal pulses. Objective Data Vital Signs Vital Signs: Vital Signs - 24 hr 02/14/24 12:00 02/14/24 14:00 02/14/24 16:00 Temperature 36.1 C L Pulse Rate 119 H 82 64 Respiratory Rate 20 Blood Pressure 170/68 H Pulse Oximetry 100 Oxygen Delivery 02/14/24 20:37 02/14/24 21:33 02/15/24 06:00 Temperature 36.4 C L 36.3 C L Pulse Rate 72 68 73 Respiratory Rate 20 22 H Blood Pressure 136/81 162/90 H Pulse Oximetry 96 95 Oxygen Delivery 02/15/24 00:00 02/15/24 04:00 02/15/24 08:42 Temperature Pulse Rate 76 75 64 Respiratory Rate Blood Pressure Pulse Oximetry Oxygen Delivery 02/15/24 08:58 Temperature Pulse Rate Respiratory Rate Blood Pressure Pulse Oximetry Oxygen Delivery Room Air Intake/Output Intake/Output: Intake & Output 02/12/24 02/13/24 02/14/24 02/15/24 23:59 23:59 23:59 23:59 Intake Total 830 1550 850 340 Output Total 450 1150 600 100 Balance 380 400 250 240 Meds/Results Medications: Active Medications Generic Name Dose Route Start Last Admin Trade Name Freq PRN Reason Stop Dose Admin Acetaminophen 650 mg 02/14/24 09:00 02/15/24 08:40 Acetaminophen 325 Mg Tablet PO 650 mg Q6H MISHA Administration Alprazolam 0.5 mg 02/15/24 11:17 02/15/24 11:34 Alprazolam (*Crx) 0.5 Mg Tablet PO 0.5 mg BID PRN Administration Anxiety Apixaban 5 mg 02/11/24 21:00 02/15/24 08:41 Apixaban 5 Mg Tablet PO 5 mg Q12H MISHA Administration Calcium Carbonate 400 mg 02/11/24 14:01 02/15/24 10:22 Calcium Carbonate (Tums) 500 Mg (200 Mg Elemental) PO 400 mg Q6H PRN Administration Acid Reflux Carvedilol 25 mg 02/11/24 21:00 02/15/24 08:42 Carvedilol 25 Mg Tablet PO 25 mg Q12HR MISHA Administration Dextrose 12.5 gm 02/11/24 09:00 Dextrose 50% 25 Gm/50 Ml Syringe IV PUSH PRN PRN Hypoglycemia Protocol Fluoxetine HCl 40 mg 02/12/24 09:00 02/15/24 08:41 Fluoxetine Hcl 20 Mg Capsule PO 40 mg DAILY MISHA Administration Glucagon 1 mg 02/11/24 09:00 Glucagon For Inj 1 Mg Vial IM PRN PRN Hypoglycemia Protocol Glucose 15 gm 02/11/24 09:00 Glucose Oral Gel 15 Gm Of Glucse In 37.5 Gm Tube PO PRN PRN Hypoglycemia Protocol Dextrose 1,000 mls @ 100 mls/hr 02/11/24 09:00 Dextrose 5% 1,000 Ml IVPB PRN PRN Hypoglycemia Protocol Insulin Aspart 3 - 6 units 02/11/24 12:00 02/15/24 11:40 Insulin Aspart (*Bkc) 100 Units/Ml SUB-Q 3 units TIDWM MISHA Administration Protocol Levofloxacin 750 mg 02/15/24 10:30 02/15/24 10:22 Levofloxacin 750 Mg Tablet PO 02/21/24 09:01 750 mg DAILY MISHA Administration Levothyroxine Sodium 50 mcg 02/12/24 06:30 02/15/24 05:46 Levothyroxine Sodium 50 Mcg Tablet PO 50 mcg DAILY@0630 [facility] Administration Lidocaine 1 patch 02/11/24 14:19 02/15/24 08:43 Lidocaine 5% Patch TOPICAL 1 patch DAILY MISHA Administration Lidocaine 1 patch 02/14/24 09:00 02/15/24 08:49 Lidocaine 5% Patch TRANSDERM 1 patch DAILY [facility] Administration Meclizine HCl 6.25 mg 02/14/24 10:30 02/15/24 08:41 Meclizine Hcl 6.25 Mg Tablet PO 6.25 mg TID MISHA Administration Methocarbamol 750 mg 02/13/24 17:00 02/15/24 08:58 Methocarbamol 750 Mg Tablet PO 750 mg TID [facility] Administration Naloxone HCl 0.1 mg 02/11/24 08:37 Naloxone Hcl 0.4 Mg/Ml Vial IV PUSH Q2M PRN Opiate Reversal Ondansetron HCl 4 mg 02/11/24 08:37 Ondansetron Inj 4 Mg/2 Ml Vial IV PUSH Q6H PRN Nausea And Vomiting Ondansetron HCl 4 mg 02/11/24 14:01 02/15/24 05:46 Ondansetron Hcl Odt 4 Mg Tablet PO 4 mg TID PRN Administration Nausea And Vomiting Oxycodone HCl 2.5 mg 02/13/24 12:57 02/14/24 17:01 Oxycodone Hcl (*Crx) 2.5 Mg Tab Ir PO 2.5 mg Q4H PRN Administration Pain Rated 4-6 Oxycodone HCl 5 mg 02/13/24 12:57 02/13/24 20:21 Oxycodone Hcl (*Crx) 5 Mg Tab Ir PO 5 mg Q4H PRN Administration Pain Rated 7-10 Pantoprazole Sodium 40 mg 02/11/24 17:00 02/15/24 08:41 Pantoprazole 40 Mg Tablet PO 40 mg BID MISHA Administration Polyethylene Glycol 17 gm 02/14/24 09:00 02/15/24 08:43 Polyethylene Glycol 3350 17 Gm Powd.Pack PO Not Given QAM [facility] Rosuvastatin Calcium 20 mg 02/11/24 21:00 02/14/24 20:37 Rosuvastatin 20 Mg Tablet PO 20 mg HS MISHA Administration Senna/Docusate Sodium 1 tab 02/14/24 21:00 02/14/24 20:37 Senna/Docusate Sodium Tablet PO 1 tab HS MISHA Administration Spironolactone 50 mg 02/12/24 09:00 02/15/24 08:41 Spironolactone 50 Mg Tablet PO 50 mg DAILY MISHA Administration Vitamin D 2,000 units 02/12/24 09:00 02/15/24 08:42 Cholecalciferol 1,000 Units Tablet PO 2,000 units DAILY MISHA Administration Radiology Results: ITS Impressions Head CT 02/11/24 00:06 IMPRESSION: 1. No fracture or acute intracranial process. 2. 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 3. Age-related changes including moderate diffuse volume loss and mild to moderate scattered white matter hypoattenuation consistent with chronic small vessel ischemic disease. Cervical Spine CT 02/11/24 00:10 IMPRESSION: 1. Severe cervical spondylosis. No acute osseous abnormality. 2. Mild pulmonary edema in the visualized upper lungs. Hip/Pelvis X-Ray 02/11/24 06:52 IMPRESSION: 1. No acute osseous abnormality. Shoulder X-Ray 02/11/24 06:54 IMPRESSION: Mild right glenohumeral and acromioclavicular osteoarthritis. No acute osseous abnormality. Chest/Abdomen/Pelvis CT 02/11/24 07:49 IMPRESSION: 1. No acute fracture or evident visceral organ injury in the chest, abdomen or pelvis. 2. Congestive heart failure with cardiomegaly and mild pulmonary edema. 3. Bilateral nonobstructing nephrolithiasis. 4. Mild diverticulosis. Chest X-Ray 02/13/24 06:23 IMPRESSION: Scattered mild areas of infiltrate and/or atelectasis of the lungs Cardiomegaly, small pericardial effusion Aortic atherosclerosis Osteopenia Knee X-Ray 02/13/24 14:09 IMPRESSION: No acute osseous finding in the left knee. No radiographic evidence of hardware related complication. Tibia/Fibula X-Ray 02/13/24 14:10 IMPRESSION: No acute osseous finding in the left tibia/fibula. Labs Labs: Laboratory Results - last 24 hr 02/14/24 02/14/24 02/14/24 11:15 16:21 19:46 WBC RBC Hgb Hct MCV MCH MCHC RDW Plt Count MPV Immature Gran % (Auto) Neut % (Auto) Lymph % (Auto) Stokes % (Auto) Eos % (Auto) Baso % (Auto) Lymph # (Auto) Stokes # (Auto) Eos # (Auto) Baso # (Auto) Abs Immat Gran (auto) Absolute Neuts (auto) Absolute Nucleated RBC Nucleated RBC % Sodium Potassium Chloride Carbon Dioxide Anion Gap BUN Creatinine Estim Creat Clear Calc Estimated GFR Glucose POC Capillary Glucose 249 H 127 H 178 H Calcium Magnesium Total Bilirubin AST ALT Alkaline Phosphatase Total Protein Albumin 02/15/24 02/15/24 02/15/24 06:15 07:40 11:23 WBC 4.5 RBC 3.48 L Hgb 10.0 L Hct 32.9 L MCV 94.5 MCH 28.7 MCHC 30.4 L RDW 17.5 H Plt Count 252 MPV 9.9 Immature Gran % (Auto) 0.4 Neut % (Auto) 66.9 Lymph % (Auto) 21.6 Stokes % (Auto) 8.6 H Eos % (Auto) 1.8 Baso % (Auto) 0.7 Lymph # (Auto) 0.98 Stokes # (Auto) 0.4 Eos # (Auto) 0.1 Baso # (Auto) 0.0 Abs Immat Gran (auto) 0.02 Absolute Neuts (auto) 3.0 Absolute Nucleated RBC 0.000 Nucleated RBC % 0.0 Sodium 134 L Potassium 4.9 Chloride 103 Carbon Dioxide 26 Anion Gap 5 BUN 21 H Creatinine 0.70 Estim Creat Clear Calc 53 Estimated GFR > 60 Glucose 166 H POC Capillary Glucose 165 H 207 H Calcium 9.4 Magnesium 1.9 Total Bilirubin 0.6 AST 17 ALT 14 Alkaline Phosphatase 93 Total Protein 6.0 L Albumin 3.7
[2024-02-15 16:12] LABS: Glucose Point of Care 116 mg/dl (65-105)
[2024-02-15 20:07] LABS: Glucose Point of Care 161 mg/dl (65-105)
[2024-02-15] MEDS: ROSUVASTATIN 20 MG TABLET PO (20:55)
[2024-02-15] MEDS: SENNA/DOCUSATE SODIUM TABLET 1 TAB PO (20:55)
[2024-02-15] MEDS: METOPROLOL TARTRATE 50 MG TAB PO (20:55)
[2024-02-16] VITALS (9 sets, daily range): BP systolic 123–139; BP diastolic 62–95; PULSE 68–98; RESP 16–18; TEMP 36.2–36.5; O2SAT 96–98
[2024-02-16] MEDS: ACETAMINOPHEN 325 MG TABLET 650 MG PO ×4 (03:55→20:39)
[2024-02-16] MEDS: LEVOTHYROXINE SODIUM 50 MCG TABLET PO (05:37)
[2024-02-16 07:39] LABS: Glucose Point of Care 145 mg/dl (65-105)
[2024-02-16] MEDS: methocarbamoL 750 MG TABLET PO ×3 (08:00→17:04)
[2024-02-16] MEDS: METOPROLOL TARTRATE 50 MG TAB PO ×2 (08:00→20:39)
[2024-02-16] MEDS: APIXABAN 5 MG TABLET PO ×2 (08:00→20:38)
[2024-02-16] MEDS: MECLIZINE HCL 6.25 MG TABLET PO ×3 (08:00→17:04)
[2024-02-16] MEDS: CHOLECALCIFEROL 1,000 UNITS TABLET 2000 UNITS PO (08:01)
[2024-02-16] MEDS: levoFLOXacin 750 MG TABLET PO (08:01)
[2024-02-16] MEDS: SPIRONOLACTONE 50 MG TABLET PO (08:01)
[2024-02-16] MEDS: FLUoxetine HCL 20 MG CAPSULE 40 MG PO (08:01)
[2024-02-16] MEDS: PANTOPRAZOLE 40 MG TABLET PO ×2 (08:01→17:04)
--- NOTE | 2024-02-16 09:38 | PM.DS ---
DS: Summary Time Spent with Patient Time attestation: Total time spent providing and/or coordinating discharge services: DS: Data Data Completed and Pending Labs on day of discharge: Labs from last 24 hours 02/16/24 02/15/24 02/15/24 07:14 19:26 16:06 POC Capillary Glucose 145 H 161 H 116 H 02/15/24 11:23 POC Capillary Glucose 207 H Preliminary micro results at discharge 02/11/24 10:49 Blood Culture - Preliminary Blood 02/11/24 10:41 Blood Culture - Preliminary Blood Discharge Plan Discharge Consulting providers: Catarino Ramirez Patient Instructions: Apixaban (By mouth), Heart Failure (DC) Discharge Medications: No Action glipizide 10 mg tablet 10 mg PO BID spironolactone 25 mg tablet 50 mg PO DAILY fluoxetine 20 mg capsule 40 mg PO DAILY cholecalciferol (vitamin D3) 25 mcg (1,000 unit) Capsule 50 mcg PO DAILY lidocaine [Lidoderm] 5 % adhesive patch,medicated 1 patch topical DAILY Qty: 15 0RF Patient Comments: apply to lower back Rx Instructions: leave on most painful area for up to 12 hrs Eliquis 5 mg tablet 5 mg PO Q12H Hold Instructions: Resume on 01/06/24. carvedilol 25 mg tablet 25 mg PO BID rosuvastatin 20 mg tablet 20 mg PO HS acetaminophen 500 mg Tablet 1,000 mg PO Q6H PRN (Reason: Pain (Scale Score 1-3)) methocarbamol 500 mg tablet 500 mg PO TID metformin 500 mg Tablet 500 mg PO BIDWMEAL calcium carbonate [Tums] 200 mg calcium (500 mg) Tablet,Chewable 400 mg PO Q6H PRN (Reason: Acid Reflux) pantoprazole [Protonix] 40 mg Tablet,Delayed Release (Dr/Ec) 40 mg PO BID ondansetron 4 mg Tablet,Disintegrating 4 mg PO TID PRN (Reason: Nausea And Vomiting) oxycodone 5 mg Tablet 5 mg PO Q4-5H PRN (Reason: Pain (Scale Score 4-6)) baclofen 5 mg Tablet 5 mg PO HS alprazolam 0.5 mg tablet 0.5 mg PO BID PRN (Reason: Anxiety) levothyroxine [Synthroid] 25 mcg tablet 50 mcg PO DAILY Qty: 180 1RF Date of admission: 02/14/24 09:57 Primary Care Provider: Chava,[place] Neal Admitting Provider: Coral Tarango Attending physician on admission: Claudia Collins Condition: Stable
[2024-02-16 11:40] LABS: Glucose Point of Care 217 mg/dl (65-105)
[2024-02-16] MEDS: INSULIN ASPART (*BKC) 100 UNITS/ML SUB-Q (12:12)
[2024-02-16] MEDS: SUCRALFATE SUSP 100 MG/ML 10 ML UDC 1000 MG PO ×2 (12:12→17:03)
[2024-02-16] MEDS: ALPRAZolam (*CRX) 0.5 MG TABLET PO ×2 (12:14→20:39)
[2024-02-16 16:17] LABS: Glucose Point of Care 140 mg/dl (65-105)
[2024-02-16 20:24] LABS: Glucose Point of Care 241 mg/dl (65-105)
[2024-02-16] MEDS: SENNA/DOCUSATE SODIUM TABLET 1 TAB PO (20:38)
[2024-02-16] MEDS: ROSUVASTATIN 20 MG TABLET PO (20:39)
[2024-02-17] VITALS (9 sets, daily range): BP systolic 128–141; BP diastolic 78–97; PULSE 81–103; RESP 18–22; TEMP 36.4–36.6; O2SAT 95–97
[2024-02-17] MEDS: ACETAMINOPHEN 325 MG TABLET 650 MG PO ×3 (05:31→15:02)
[2024-02-17] MEDS: LEVOTHYROXINE SODIUM 50 MCG TABLET PO (05:32)
[2024-02-17] MEDS: SUCRALFATE SUSP 100 MG/ML 10 ML UDC 1000 MG PO ×3 (05:36→15:02)
[2024-02-17 08:07] LABS: Glucose Point of Care 160 mg/dl (65-105)
[2024-02-17] MEDS: methocarbamoL 750 MG TABLET PO ×3 (09:27→17:28)
[2024-02-17] MEDS: FLUoxetine HCL 20 MG CAPSULE 40 MG PO (09:27)
[2024-02-17] MEDS: CHOLECALCIFEROL 1,000 UNITS TABLET 2000 UNITS PO (09:27)
[2024-02-17] MEDS: MECLIZINE HCL 6.25 MG TABLET PO ×3 (09:27→17:28)
[2024-02-17] MEDS: levoFLOXacin 750 MG TABLET PO (09:27)
[2024-02-17] MEDS: APIXABAN 5 MG TABLET PO (09:28)
[2024-02-17] MEDS: METOPROLOL TARTRATE 50 MG TAB PO (09:28)
[2024-02-17] MEDS: SPIRONOLACTONE 50 MG TABLET PO (09:28)
[2024-02-17] MEDS: PANTOPRAZOLE 40 MG TABLET PO ×2 (09:28→17:28)
--- NOTE | 2024-02-17 12:09 | PM.IMPN ---
Subjective Date/time seen: 02/17/24 12:09 Review of Systems Review of Systems: All systems reviewed & are unremarkable except as noted in HPI and below Objective Data Vital Signs Vital Signs: Vital Signs - 24 hr 02/16/24 14:00 02/16/24 20:39 02/16/24 22:00 Temperature 97.2 F L 97.3 F L Pulse Rate 68 72 98 Respiratory Rate 16 18 Blood Pressure 139/95 H 125/94 H Pulse Oximetry 96 96 Oxygen Delivery 02/16/24 20:00 02/17/24 00:00 02/17/24 04:00 Temperature Pulse Rate 90 101 H 81 Respiratory Rate Blood Pressure Pulse Oximetry Oxygen Delivery 02/17/24 06:00 02/17/24 09:28 02/17/24 08:39 Temperature 97.5 F L Pulse Rate 103 H 86 Respiratory Rate 22 H Blood Pressure 141/97 H Pulse Oximetry 97 95 Oxygen Delivery Room Air 02/17/24 09:30 02/17/24 09:30 Temperature Pulse Rate 94 Respiratory Rate Blood Pressure Pulse Oximetry Oxygen Delivery Room Air Intake/Output Intake/Output: Intake & Output 02/14/24 02/15/24 02/16/24 02/17/24 23:59 23:59 23:59 23:59 Intake Total 850 286 237 0564 Output Total 612 345 3214 50 Balance 250 520 -910 976 Meds/Results Medications: Active Medications Generic Name Dose Route Start Last Admin Trade Name Freq PRN Reason Stop Dose Admin Acetaminophen 650 mg 02/14/24 09:00 02/17/24 09:28 Acetaminophen 325 Mg Tablet PO 650 mg Q6H MISHA Administration Al Hydrox/Mg Hydrox/Simethicone 30 ml 02/15/24 12:42 Mag Hydrox/Al Hydrox/Simeth 30 Ml Udc PO Q6H PRN Indigestion Alprazolam 0.5 mg 02/15/24 11:17 02/16/24 20:39 Alprazolam (*Crx) 0.5 Mg Tablet PO 0.5 mg BID PRN Administration Anxiety Apixaban 5 mg 02/11/24 21:00 02/17/24 09:28 Apixaban 5 Mg Tablet PO 5 mg Q12H MISHA Administration Calcium Carbonate 400 mg 02/11/24 14:01 02/15/24 10:22 Calcium Carbonate (Tums) 500 Mg (200 Mg Elemental) PO 400 mg Q6H PRN Administration Acid Reflux Dextrose 12.5 gm 02/11/24 09:00 Dextrose 50% 25 Gm/50 Ml Syringe IV PUSH PRN PRN Hypoglycemia Protocol Fluoxetine HCl 40 mg 02/12/24 09:00 02/17/24 09:27 Fluoxetine Hcl 20 Mg Capsule PO 40 mg DAILY MISHA Administration Glucagon 1 mg 02/11/24 09:00 Glucagon For Inj 1 Mg Vial IM PRN PRN Hypoglycemia Protocol Glucose 15 gm 02/11/24 09:00 Glucose Oral Gel 15 Gm Of Glucse In 37.5 Gm Tube PO PRN PRN Hypoglycemia Protocol Dextrose 1,000 mls @ 100 mls/hr 02/11/24 09:00 Dextrose 5% 1,000 Ml IVPB PRN PRN Hypoglycemia Protocol Insulin Aspart 3 - 6 units 02/11/24 12:00 02/17/24 09:14 Insulin Aspart (*Bkc) 100 Units/Ml SUB-Q Not Given TIDWM MISHA Protocol Levofloxacin 750 mg 02/15/24 10:30 02/17/24 09:27 Levofloxacin 750 Mg Tablet PO 02/21/24 09:01 750 mg DAILY MISHA Administration Levothyroxine Sodium 50 mcg 02/17/24 06:00 02/17/24 05:32 Levothyroxine Sodium 50 Mcg Tablet PO 50 mcg DAILY@0600 MISHA Administration Lidocaine 1 patch 02/11/24 14:19 02/17/24 09:29 Lidocaine 5% Patch TOPICAL Not Given DAILY MISHA Lidocaine 1 patch 02/14/24 09:00 02/17/24 09:29 Lidocaine 5% Patch TRANSDERM Not Given DAILY [facility] Meclizine HCl 6.25 mg 02/14/24 10:30 02/17/24 09:27 Meclizine Hcl 6.25 Mg Tablet PO 6.25 mg TID MISHA Administration Melatonin 5 mg 02/15/24 21:00 02/16/24 20:43 Melatonin 5 Mg Tablet PO Not Given HS MISHA Methocarbamol 750 mg 02/13/24 17:00 02/17/24 09:27 Methocarbamol 750 Mg Tablet PO 750 mg TID MISHA Administration Metoprolol Tartrate 50 mg 02/15/24 21:00 02/17/24 09:28 Metoprolol Tartrate 50 Mg Tab PO 50 mg Q12HR MISHA Administration Metoprolol Tartrate 5 mg 02/15/24 12:51 Metoprolol Tartrate Inj 5 Mg/5 Ml Vial IV PUSH Q2H PRN Tachycardia Naloxone HCl 0.1 mg 02/11/24 08:37 Naloxone Hcl 0.4 Mg/Ml Vial IV PUSH Q2M PRN Opiate Reversal Ondansetron HCl 4 mg 02/11/24 08:37 Ondansetron Inj 4 Mg/2 Ml Vial IV PUSH Q6H PRN Nausea And Vomiting Ondansetron HCl 4 mg 02/11/24 14:01 02/15/24 05:46 Ondansetron Hcl Odt 4 Mg Tablet PO 4 mg TID PRN Administration Nausea And Vomiting Oxycodone HCl 2.5 mg 02/13/24 12:57 02/14/24 17:01 Oxycodone Hcl (*Crx) 2.5 Mg Tab Ir PO 2.5 mg Q4H PRN Administration Pain Rated 4-6 Oxycodone HCl 5 mg 02/13/24 12:57 02/13/24 20:21 Oxycodone Hcl (*Crx) 5 Mg Tab Ir PO 5 mg Q4H PRN Administration Pain Rated 7-10 Pantoprazole Sodium 40 mg 02/11/24 17:00 02/17/24 09:28 Pantoprazole 40 Mg Tablet PO 40 mg BID MISHA Administration Polyethylene Glycol 17 gm 02/14/24 09:00 02/17/24 09:29 Polyethylene Glycol 3350 17 Gm Powd.Pack PO Not Given QAM MISHA Rosuvastatin Calcium 20 mg 02/11/24 21:00 02/16/24 20:39 Rosuvastatin 20 Mg Tablet PO 20 mg HS MISHA Administration Senna/Docusate Sodium 1 tab 02/14/24 21:00 02/16/24 20:38 Senna/Docusate Sodium Tablet PO 1 tab HS MISHA Administration Spironolactone 50 mg 02/12/24 09:00 02/17/24 09:28 Spironolactone 50 Mg Tablet PO 50 mg DAILY MISHA Administration Sucralfate 1,000 mg 02/16/24 11:30 02/17/24 05:36 Sucralfate Susp 100 Mg/Ml 10 Ml Udc PO 1,000 mg ACHS MISHA Administration Vitamin D 2,000 units 02/12/24 09:00 02/17/24 09:27 Cholecalciferol 1,000 Units Tablet PO 2,000 units DAILY MISHA Administration Radiology Results: ITS Impressions Head CT 02/11/24 00:06 IMPRESSION: 1. No fracture or acute intracranial process. 2. 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 3. Age-related changes including moderate diffuse volume loss and mild to moderate scattered white matter hypoattenuation consistent with chronic small vessel ischemic disease. Cervical Spine CT 02/11/24 00:10 IMPRESSION: 1. Severe cervical spondylosis. No acute osseous abnormality. 2. Mild pulmonary edema in the visualized upper lungs. Hip/Pelvis X-Ray 02/11/24 06:52 IMPRESSION: 1. No acute osseous abnormality. Shoulder X-Ray 02/11/24 06:54 IMPRESSION: Mild right glenohumeral and acromioclavicular osteoarthritis. No acute osseous abnormality. Chest/Abdomen/Pelvis CT 02/11/24 07:49 IMPRESSION: 1. No acute fracture or evident visceral organ injury in the chest, abdomen or pelvis. 2. Congestive heart failure with cardiomegaly and mild pulmonary edema. 3. Bilateral nonobstructing nephrolithiasis. 4. Mild diverticulosis. Chest X-Ray 02/13/24 06:23 IMPRESSION: Scattered mild areas of infiltrate and/or atelectasis of the lungs Cardiomegaly, small pericardial effusion Aortic atherosclerosis Osteopenia Knee X-Ray 02/13/24 14:09 IMPRESSION: No acute osseous finding in the left knee. No radiographic evidence of hardware related complication. Tibia/Fibula X-Ray 02/13/24 14:10 IMPRESSION: No acute osseous finding in the left tibia/fibula. Labs Labs: Laboratory Results - last 24 hr 02/16/24 02/16/24 02/17/24 16:10 20:20 07:58 POC Capillary Glucose 140 H 241 H 160 H
[2024-02-17 12:23] LABS: Glucose Point of Care 174 mg/dl (65-105)
--- NOTE | 2024-02-17 12:36 | PM.PNCARD ---
Progress Note: A&P Assessment and Plan (1) Atrial fibrillation: Code(s): I48.91 - Unspecified atrial fibrillation Status: Acute Plan AFib with RVR Mechanical fall recurrent History of ischemic stroke History of nonischemic cardiomyopathy History of PE and diabetes mellitus type 2 Diabetes mellitus type 2 Moderate to severe aortic stenosis with low-flow Plan Apixaban 5 mg b.i.d. Will shift from coreg to metoprolol which will hopefully provide better rate control. Continue metoprolol. Follow up with Dr. Mendes Will need her aortic valve closely monitor Subjective Date/time seen: 02/17/24 12:36 Interval history: Cardiology follow up for atrial fibrillation Date of service 02/15/2024: Heart rate stable on telemetry. Does have some intermittent tachycardia but she denies any palpitations, shortness of breath, chest pain. She is very anxious/tearful. Date of service 02/17/2024: Feels fine. No chest pain, shortness of breath Review of Systems Review of Systems: All systems reviewed & are unremarkable except as noted in HPI and below Constitutional: Constitutional: Denies body ache(s) ENT: Denies Normal hearing present Cardiovascular: Cardiovascular: Denies chest pain Respiratory: Respiratory: Denies dyspnea and Reports dyspnea on exertion Exam Const: General: comfortable and no acute distress Other: Able to lie flat HENMT: Face/Nose/Sinus: Normal nares present and no epistaxis Mouth: Yes moist mucous membranes Eyes: General: appearance normal, both eyes and all related structures Sclera: sclerae normal Neck: Neck: supple and no JVD Carotids: no bruits Resp: Auscultation: clear to auscultation bilaterally and lung sounds not diminished Other: No chest wall tenderness Cardio: Rate: regular rate Rhythm: abnormal rhythm irregularly irregular Heart sounds: no gallops, no murmurs and no rubs GI: Auscultation: normal bowel sounds Skin: General skin exam: normal color, rashes and/or lesions noted and no erythema Other: Warm Neuro: Speech: normal speech Sensory Exam: normal sensation Other: No obvious focal deficit or facial asymmetry Extrem: General: no edema Other: Normal capillary refills Intact distal pulses. Objective Data Vital Signs Vital Signs: Vital Signs - 24 hr 02/16/24 14:00 02/16/24 20:39 02/16/24 22:00 Temperature 36.2 C L 36.3 C L Pulse Rate 68 72 98 Respiratory Rate 16 18 Blood Pressure 139/95 H 125/94 H Pulse Oximetry 96 96 Oxygen Delivery 02/16/24 20:00 02/17/24 00:00 02/17/24 04:00 Temperature Pulse Rate 90 101 H 81 Respiratory Rate Blood Pressure Pulse Oximetry Oxygen Delivery 02/17/24 06:00 02/17/24 09:28 02/17/24 08:39 Temperature 36.4 C L Pulse Rate 103 H 86 Respiratory Rate 22 H Blood Pressure 141/97 H Pulse Oximetry 97 95 Oxygen Delivery Room Air 02/17/24 09:30 02/17/24 09:30 Temperature Pulse Rate 94 Respiratory Rate Blood Pressure Pulse Oximetry Oxygen Delivery Room Air Intake/Output Intake/Output: Intake & Output 02/14/24 02/15/24 02/16/24 02/17/24 23:59 23:59 23:59 23:59 Intake Total 850 923 138 7948 Output Total 039 870 1906 50 Balance 250 520 -910 976 Meds/Results Medications: Active Medications Generic Name Dose Route Start Last Admin Trade Name Freq PRN Reason Stop Dose Admin Acetaminophen 650 mg 02/14/24 09:00 02/17/24 09:28 Acetaminophen 325 Mg Tablet PO 650 mg Q6H MISHA Administration Al Hydrox/Mg Hydrox/Simethicone 30 ml 02/15/24 12:42 Mag Hydrox/Al Hydrox/Simeth 30 Ml Udc PO Q6H PRN Indigestion Alprazolam 0.5 mg 02/15/24 11:17 02/16/24 20:39 Alprazolam (*Crx) 0.5 Mg Tablet PO 0.5 mg BID PRN Administration Anxiety Apixaban 5 mg 02/11/24 21:00 02/17/24 09:28 Apixaban 5 Mg Tablet PO 5 mg Q12H MISHA Administration Calcium Carbonate 400 mg 02/11/24 14:01 02/15/24 10:22 Calcium Carbonate (Tums) 500 Mg (200 Mg Elemental) PO 400 mg Q6H PRN Administration Acid Reflux Dextrose 12.5 gm 02/11/24 09:00 Dextrose 50% 25 Gm/50 Ml Syringe IV PUSH PRN PRN Hypoglycemia Protocol Fluoxetine HCl 40 mg 02/12/24 09:00 02/17/24 09:27 Fluoxetine Hcl 20 Mg Capsule PO 40 mg DAILY MISHA Administration Glucagon 1 mg 02/11/24 09:00 Glucagon For Inj 1 Mg Vial IM PRN PRN Hypoglycemia Protocol Glucose 15 gm 02/11/24 09:00 Glucose Oral Gel 15 Gm Of Glucse In 37.5 Gm Tube PO PRN PRN Hypoglycemia Protocol Dextrose 1,000 mls @ 100 mls/hr 02/11/24 09:00 Dextrose 5% 1,000 Ml IVPB PRN PRN Hypoglycemia Protocol Insulin Aspart 3 - 6 units 02/11/24 12:00 02/17/24 12:15 Insulin Aspart (*Bkc) 100 Units/Ml SUB-Q Not Given TIDWM MISHA Protocol Levofloxacin 750 mg 02/15/24 10:30 02/17/24 09:27 Levofloxacin 750 Mg Tablet PO 02/21/24 09:01 750 mg DAILY MISHA Administration Levothyroxine Sodium 50 mcg 02/17/24 06:00 02/17/24 05:32 Levothyroxine Sodium 50 Mcg Tablet PO 50 mcg DAILY@0600 MISHA Administration Lidocaine 1 patch 02/11/24 14:19 02/17/24 09:29 Lidocaine 5% Patch TOPICAL Not Given DAILY MISHA Lidocaine 1 patch 02/14/24 09:00 02/17/24 09:29 Lidocaine 5% Patch TRANSDERM Not Given DAILY [facility] Meclizine HCl 6.25 mg 02/14/24 10:30 02/17/24 12:16 Meclizine Hcl 6.25 Mg Tablet PO 6.25 mg TID MISHA Administration Melatonin 5 mg 02/15/24 21:00 02/16/24 20:43 Melatonin 5 Mg Tablet PO Not Given [facility] Methocarbamol 750 mg 02/13/24 17:00 02/17/24 12:16 Methocarbamol 750 Mg Tablet PO 750 mg TID MISHA Administration Metoprolol Tartrate 50 mg 02/15/24 21:00 02/17/24 09:28 Metoprolol Tartrate 50 Mg Tab PO 50 mg Q12HR MISHA Administration Metoprolol Tartrate 5 mg 02/15/24 12:51 Metoprolol Tartrate Inj 5 Mg/5 Ml Vial IV PUSH Q2H PRN Tachycardia Naloxone HCl 0.1 mg 02/11/24 08:37 Naloxone Hcl 0.4 Mg/Ml Vial IV PUSH Q2M PRN Opiate Reversal Ondansetron HCl 4 mg 02/11/24 08:37 Ondansetron Inj 4 Mg/2 Ml Vial IV PUSH Q6H PRN Nausea And Vomiting Ondansetron HCl 4 mg 02/11/24 14:01 02/15/24 05:46 Ondansetron Hcl Odt 4 Mg Tablet PO 4 mg TID PRN Administration Nausea And Vomiting Oxycodone HCl 2.5 mg 02/13/24 12:57 02/14/24 17:01 Oxycodone Hcl (*Crx) 2.5 Mg Tab Ir PO 2.5 mg Q4H PRN Administration Pain Rated 4-6 Oxycodone HCl 5 mg 02/13/24 12:57 02/13/24 20:21 Oxycodone Hcl (*Crx) 5 Mg Tab Ir PO 5 mg Q4H PRN Administration Pain Rated 7-10 Pantoprazole Sodium 40 mg 02/11/24 17:00 02/17/24 09:28 Pantoprazole 40 Mg Tablet PO 40 mg BID MISHA Administration Polyethylene Glycol 17 gm 02/14/24 09:00 02/17/24 09:29 Polyethylene Glycol 3350 17 Gm Powd.Pack PO Not Given QAM [facility] Rosuvastatin Calcium 20 mg 02/11/24 21:00 02/16/24 20:39 Rosuvastatin 20 Mg Tablet PO 20 mg HS MISHA Administration Senna/Docusate Sodium 1 tab 02/14/24 21:00 02/16/24 20:38 Senna/Docusate Sodium Tablet PO 1 tab HS MISHA Administration Spironolactone 50 mg 02/12/24 09:00 02/17/24 09:28 Spironolactone 50 Mg Tablet PO 50 mg DAILY MISHA Administration Sucralfate 1,000 mg 02/16/24 11:30 02/17/24 12:15 Sucralfate Susp 100 Mg/Ml 10 Ml Udc PO 1,000 mg ACHS [facility] Administration Vitamin D 2,000 units 02/12/24 09:00 02/17/24 09:27 Cholecalciferol 1,000 Units Tablet PO 2,000 units DAILY MISHA Administration Radiology Results: ITS Impressions Head CT 02/11/24 00:06 IMPRESSION: 1. No fracture or acute intracranial process. 2. 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 3. Age-related changes including moderate diffuse volume loss and mild to moderate scattered white matter hypoattenuation consistent with chronic small vessel ischemic disease. Cervical Spine CT 02/11/24 00:10 IMPRESSION: 1. Severe cervical spondylosis. No acute osseous abnormality. 2. Mild pulmonary edema in the visualized upper lungs. Hip/Pelvis X-Ray 02/11/24 06:52 IMPRESSION: 1. No acute osseous abnormality. Shoulder X-Ray 02/11/24 06:54 IMPRESSION: Mild right glenohumeral and acromioclavicular osteoarthritis. No acute osseous abnormality. Chest/Abdomen/Pelvis CT 02/11/24 07:49 IMPRESSION: 1. No acute fracture or evident visceral organ injury in the chest, abdomen or pelvis. 2. Congestive heart failure with cardiomegaly and mild pulmonary edema. 3. Bilateral nonobstructing nephrolithiasis. 4. Mild diverticulosis. Chest X-Ray 02/13/24 06:23 IMPRESSION: Scattered mild areas of infiltrate and/or atelectasis of the lungs Cardiomegaly, small pericardial effusion Aortic atherosclerosis Osteopenia Knee X-Ray 02/13/24 14:09 IMPRESSION: No acute osseous finding in the left knee. No radiographic evidence of hardware related complication. Tibia/Fibula X-Ray 02/13/24 14:10 IMPRESSION: No acute osseous finding in the left tibia/fibula. Labs Labs: Laboratory Results - last 24 hr 02/16/24 02/16/24 02/17/24 16:10 20:20 07:58 POC Capillary Glucose 140 H 241 H 160 H 02/17/24 11:50 POC Capillary Glucose 174 H
[2024-02-17] MEDS: ALPRAZolam (*CRX) 0.5 MG TABLET PO (15:02)
--- NOTE | 2024-02-17 15:33 | P.DS_ITS ---
DS: Admitting Diagnosis Discharge Date 02/17/2024 Admitting Diagnosis Fall, right shoulder hip and head pain. DS: Discharge Diagnosis Discharge Diagnosis (1) Fall from ground level: Code(s): W18.30XA - Fall on same level, unspecified, initial encounter Status: Acute (2) Atrial fibrillation with rapid ventricular response: Code(s): I48.91 - Unspecified atrial fibrillation Status: Acute (3) Hypomagnesemia: Code(s): E83.42 - Hypomagnesemia Status: Acute (4) UTI (urinary tract infection): Code(s): N39.0 - Urinary tract infection, site not specified Status: Acute (5) Type 2 diabetes mellitus without complications: Code(s): E11.9 - Type 2 diabetes mellitus without complications Status: Acute (6) Pulmonary edema: Code(s): J81.1 - Chronic pulmonary edema Status: Acute (7) Dizziness: Code(s): R42 - Dizziness and giddiness Status: Acute DS: Summary Hospital Course Hospital Course: * Fall. Received PT/OT. No fracture of left knee or left tibia/fibula. CT head showed no acute fracture intracranial process with moderate-sized old infarct in the left posterior cerebral and right middle cerebral arteries as well as age-related changes with [id number] white matter hypoattenuation consistent with chronic small-vessel ischemic disease. CT cervical spine shows severe cervical spondylosis but no acute osseous abnormality. Right hip, pelvis, and shoulder x-ray were negative for fracture. Chest x-ray shows cardiomegaly with pulmonary edema. CT abdomen pelvis showed no acute fracture or visceral organ injury to the chest abdomen or pelvis with congestive heart failure findings of cardiomegaly and mild pulmonary edema, as well as bilateral nonobstructing nephrolithiasis, and mild diverticulosis. * Chest X-ray showed: MPRESSION: Scattered mild areas of infiltrate and/or atelectasis of the lungs Cardiomegaly, small pericardial effusion Aortic atherosclerosis Osteopenia * Afib with RVR switched from Coreg to Metoprolol. Continue Eliquis 5 mg PO BID. * 04/13 TTE LVEF 55-60%, severe aortic valve stenosis. Dilated inferior vena cava with <50% collapse upon inspiration consistentwith significantly elevated right atrial pressure, 15 mmHg. Cardiology followed while here. Will need to follow up with Underwriting Operations Manager Dr. Mendes outpatient. * UTI:02/10 Urine culture growing Klebsiella oxytoca 02/10 -- transition to 7 days a Levaquin p.o. Status at Discharge Functional status at discharge: uses cane/walker Overall status at discharge: patient is not back to baseline Time Spent with Patient Time attestation: Total time spent providing and/or coordinating discharge services: Time spent: Greater than 30 minutes Exam Const: General: no acute distress and uncomfortable Other: Pain in right neck is a 4 , frequent, and aching. Eyes: Sclera: sclerae normal Resp: Effort & Inspection: normal respiratory effort Auscultation: clear to auscultation bilaterally Cardio: Rate: regular rate Rhythm: regular rhythm GI: GI Palp: Yes Soft to palpation Auscultation: normal bowel sounds Skin: General skin exam: no rashes or lesions noted Extrem: General: normal to inspection Psych: Mental Status: mental status grossly normal Affect: normal affect Other: Anxious at times. DS: Data Data Completed and Pending Labs on day of discharge: Labs from last 24 hours 02/17/24 02/17/24 02/16/24 11:50 07:58 20:20 POC Capillary Glucose 174 H 160 H 241 H 02/16/24 16:10 POC Capillary Glucose 140 H Discharge Plan Discharge Attending physician on discharge: Donis Lemus Consulting providers: Catarino Ramirez Discharging Clinician: Val Danielson Anticipated Discharge Date/Time: 02/17/24 16:15 Patient Disposition: SNF Activity: july shower Diet: heart healthy Discharge Instructions: * PT/OT * Complete all dose of antibiotics. Patient Instructions: Apixaban (By mouth), Heart Failure (DC), A-fib (Atrial Fibrillation) (DC), Heart Healthy Diet (DC), Urinary Tract Infection in Older Adults (DC) Stand Alone Forms: General Discharge Information, Long Term Discharge Follow-up/Referrals: Chris Mendes [Other] - 2 Weeks Chava,[place] Neal MD [Primary Care Provider] - 2 Weeks (Follow up after rehab) Discharge Medications: New levofloxacin 750 mg tablet 750 mg PO DAILY Qty: 4 0RF Rx Instructions: start on 02/18/24 sucralfate 100 mg/mL Suspension 1,000 mg PO ACHS Qty: 420 0RF polyethylene glycol 3350 [Miralax] 17 gram Powder In Packet 17 g PO QAM Qty: 30 0RF metoprolol tartrate 50 mg Tablet 50 mg PO Q12HR Qty: 60 0RF oxycodone 5 mg tablet 5 mg PO Q6H PRN (Reason: pain) Qty: 14 0RF alprazolam 0.5 mg tablet 0.5 mg PO BID PRN (Reason: anxiety) Qty: 10 0RF methocarbamol 750 mg Tablet 750 mg PO TID 14 Days Qty: 42 0RF Continued glipizide 10 mg tablet 10 mg PO BID spironolactone 25 mg tablet 50 mg PO DAILY fluoxetine 20 mg capsule 40 mg PO DAILY cholecalciferol (vitamin D3) 25 mcg (1,000 unit) Capsule 50 mcg PO DAILY lidocaine [Lidoderm] 5 % adhesive patch,medicated 1 patch topical DAILY Qty: 15 0RF Patient Comments: apply to lower back Rx Instructions: leave on most painful area for up to 12 hrs Eliquis 5 mg tablet 5 mg PO Q12H Hold Instructions: Resume on 01/06/24. rosuvastatin 20 mg tablet 20 mg PO HS acetaminophen 500 mg Tablet 1,000 mg PO Q6H PRN (Reason: Pain (Scale Score 1-3)) methocarbamol 500 mg tablet 500 mg PO TID metformin 500 mg Tablet 500 mg PO BIDWMEAL calcium carbonate [Tums] 200 mg calcium (500 mg) Tablet,Chewable 400 mg PO Q6H PRN (Reason: Acid Reflux) pantoprazole [Protonix] 40 mg Tablet,Delayed Release (Dr/Ec) 40 mg PO BID ondansetron 4 mg Tablet,Disintegrating 4 mg PO TID PRN (Reason: Nausea And Vomiting) levothyroxine [Synthroid] 25 mcg tablet 50 mcg PO DAILY Qty: 180 1RF Discontinued carvedilol 25 mg tablet 25 mg PO BID oxycodone 5 mg Tablet 5 mg PO Q4-5H PRN (Reason: Pain (Scale Score 4-6)) baclofen 5 mg Tablet 5 mg PO HS alprazolam 0.5 mg tablet 0.5 mg PO BID PRN (Reason: Anxiety) Date of admission: 02/14/24 09:57 Primary Care Provider: Chava,[place] Neal Admitting Provider: Coral Tarango Attending physician on admission: Claudia Collins Condition: Improved Hospitalist MIPS Heart Failure (Exclusion) Patient has history of Heart Transplant or Left Ventricular Assistive Device?: No IF YES, STOP HERE Heart Failure (Qualifier) Patient has current or prior documentation of LVEF less than or equal to 40%, or mod/servere depressed LVSF?: No IF NO, STOP HERE
--- NOTE | 2024-02-17 16:31 | PC.NURSE ---
This RN attempted to called [facility] for report. Call sent to [address] with no answer and then another call transferred to [address] with no answer. This RN left message with loan secretary, Lucinda, to have them call for report as soon as they are available to do so.
[2024-02-17 17:10] LABS: SARS-CoV-2 RNA PCR Negative (Negative)
[2024-02-17 17:18] LABS: Glucose Point of Care 142 mg/dl (65-105)
--- NOTE | 2024-02-18 07:31 | P.PNIM_ITS ---
Progress Note: A&P Assessment and Plan (1) Fall from ground level: Code(s): W18.30XA - Fall on same level, unspecified, initial encounter Status: Acute Assessment and Plan: Ground level fall with no acute fracture. Patient is having significant pain * Activity up with assistance, up to chair * PT and OT were consulted. Will likely need rehab after discharge * Continue tylenol * Change norco to oxycodone 2.5/5mg prn per patient preference * Bowel regimen with MiraLAX and senna * Fall precautions * Change baclofen from 500 QID to 750mg TID and dc Baclofen 5mg hs * Check left knee, tib/fib x-ray * ICE/heat pack prn * patient having trouble working with PT and OT due to pain and feeling hopeless about situation 02/15: Patient still very anxious and hopeless, plan is for SNF for rehab (2) Atrial fibrillation with rapid ventricular response: Code(s): I48.91 - Unspecified atrial fibrillation Status: Acute Assessment and Plan: Patient has a history of atrial fibrillation on carvedilol 25 mg b.i.d. and Eliquis 5 mg b.i.d.. Usually she is rate controlled in a-fib but went into RVR in the ED requiring metoprolol 5 mg IVP and received her carvedilol 25 mg p.o.. Heart rate improved to upper 101-111. HR also elevated in the setting of pain. Was previously treated with sotolol from [id number], changed to amiodarone in 2019 but had GI side effects. * Telemetry ordered * Resume Coreg, resume Eliquis * Correct electrolyte imbalance * repeat EKG 02/11 afib with rate 100 * 02/11 TTE LVEF 55-60%, severe aortic valve stenosis. Dilated inferior vena cava with <50% collapse upon inspiration consistent with significantly elevated right atrial pressure, 15 mmHg. --Cardiology consult for severe and rate control, Plan Apixaban 5 mg b.i.d. Carvedilol 25 mg b.i.d. Add diltiazem 30 mg t.i.d. (3) Hypomagnesemia: Code(s): E83.42 - Hypomagnesemia Status: Acute Assessment and Plan: Magnesium was 1.2 on admission * Received 4 mg magnesium replacement * Daily magnesium level * 1 G mag 02/12 for 1.6 improving (4) Hypothyroidism: Code(s): E03.9 - Hypothyroidism, unspecified Status: Acute Assessment and Plan: History of hypothyroidism on levothyroxine 50 mcg daily. TSH 3.56 * Continue levothyroxine (5) Type 2 diabetes mellitus without complications: Code(s): E11.9 - Type 2 diabetes mellitus without complications Status: Acute Assessment and Plan: History of diabetes on glipizide 10 mg b.i.d., metformin 500 mg b.i.d. * Holding oral anti diabetics while inpatient * Moderate dose SSI correction based off of BMI * A.c. HS Accu-Cheks * Hypoglycemia protocol ordered (6) Anemia: Qualifiers: Anemia type: other cause Code(s): D64.9 - Anemia, unspecified Status: Acute Assessment and Plan: Patient was recently hospitalized at this institution from 12/29-12/31 after presenting with symptomatic anemia. She received a total of 2 units of packed red blood cells and underwent EGD which found an acute duodenal ulcer, duodenitis, gastritis. Patient was started on Protonix b.i.d. for 6 weeks and then daily permanently. She was instructed to resume anticoagulation is 5-7 days. * Hemoglobin at discharge was 8.9 grams/deciliter. * Hemoglobin this admission has improved to 9.8. * No overt signs of bleeding. * TIBC, iron, vitamin B12, and folate levels were drawn last admission essentially normal. * Monitor on daily CBC transfuse for hemoglobin less than 7 * On home eliquis no signs of acute bleeding, hemoglobin stable (7) UTI (urinary tract infection): Code(s): N39.0 - Urinary tract infection, site not specified Status: Acute Assessment and Plan: 02/10 UA positive for nitrites,4+ bacteria, 6-10 WBC's. --02/10 Urine culture growing Klebsiella oxytoca 02/10 -- transition to 7 days a Levaquin p.o. (8) Pulmonary edema: Code(s): J81.1 - Chronic pulmonary edema Status: Acute Assessment and Plan: continued home spironolactone 01/12 chest x-ray scattered infiltrates and/or atelectasis echocardiogram EF 55-60% (9) Dizziness: Code(s): R42 - Dizziness and giddiness Status: Acute Assessment and Plan: meclizine Time Spent With Patient Time with patient: Greater than 35 minutes Subjective Date/time seen: 02/16/24 12:31 Interval history: Patient still complaining of anxiety and intermittent tachycardia. Review of Systems Review of Systems: All systems reviewed & are unremarkable except as noted in HPI and below Exam Const: General: no acute distress and uncomfortable Eyes: Sclera: sclerae normal Resp: Effort & Inspection: normal respiratory effort Auscultation: clear to auscultation bilaterally Cardio: Rate: regular rate Rhythm: regular rhythm GI: GI Palp: Yes Soft to palpation Auscultation: normal bowel sounds Skin: General skin exam: no rashes or lesions noted Extrem: General: normal to inspection Psych: Mental Status: mental status grossly normal Affect: normal affect Other: Anxious at times. Objective Data Vital Signs Vital Signs: Vital Signs - 24 hr 02/17/24 09:28 02/17/24 08:39 02/17/24 09:30 Temperature Pulse Rate 86 Respiratory Rate Blood Pressure Pulse Oximetry 95 Oxygen Delivery Room Air Room Air 02/17/24 09:30 02/17/24 12:02 02/17/24 14:00 Temperature 36.6 C Pulse Rate 94 95 83 Respiratory Rate 18 Blood Pressure 128/78 Pulse Oximetry 97 Oxygen Delivery 02/17/24 16:00 Temperature Pulse Rate 89 Respiratory Rate Blood Pressure Pulse Oximetry Oxygen Delivery Intake/Output Intake/Output: Intake & Output 02/15/24 02/16/24 02/17/24 02/18/24 23:59 23:59 23:59 23:59 Intake Total 900 667 1825 Output Total 300 1750 353 Balance 520 -910 2153 Meds/Results Radiology Results: ITS Impressions Head CT 02/11/24 00:06 IMPRESSION: 1. No fracture or acute intracranial process. 2. 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 3. Age-related changes including moderate diffuse volume loss and mild to moderate scattered white matter hypoattenuation consistent with chronic small vessel ischemic disease. Cervical Spine CT 02/11/24 00:10 IMPRESSION: 1. Severe cervical spondylosis. No acute osseous abnormality. 2. Mild pulmonary edema in the visualized upper lungs. Hip/Pelvis X-Ray 02/11/24 06:52 IMPRESSION: 1. No acute osseous abnormality. Shoulder X-Ray 02/11/24 06:54 IMPRESSION: Mild right glenohumeral and acromioclavicular osteoarthritis. No acute osseous abnormality. Chest/Abdomen/Pelvis CT 02/11/24 07:49 IMPRESSION: 1. No acute fracture or evident visceral organ injury in the chest, abdomen or pelvis. 2. Congestive heart failure with cardiomegaly and mild pulmonary edema. 3. Bilateral nonobstructing nephrolithiasis. 4. Mild diverticulosis. Chest X-Ray 02/13/24 06:23 IMPRESSION: Scattered mild areas of infiltrate and/or atelectasis of the lungs Cardiomegaly, small pericardial effusion Aortic atherosclerosis Osteopenia Knee X-Ray 02/13/24 14:09 IMPRESSION: No acute osseous finding in the left knee. No radiographic evidence of hardware related complication. Tibia/Fibula X-Ray 02/13/24 14:10 IMPRESSION: No acute osseous finding in the left tibia/fibula. Labs Labs: Laboratory Results - last 24 hr 02/17/24 02/17/24 02/17/24 07:58 11:50 16:25 POC Capillary Glucose 160 H 174 H SARS-CoV-2 RNA (RT-PCR) Negative 02/17/24 17:11 POC Capillary Glucose 142 H SARS-CoV-2 RNA (RT-PCR) Pulse Oximetry SpO2 results: 96-97% on room air Attestation: I personally reviewed and interpreted this pulse oximetry as follows: Interpretation: No need for supplemental oxygenation at this time Quality VTE Prophylaxis VTE prophylaxis: pharmacologic ordered Hospitalist MIPS Advance Care Plan I have confirmed that the patient's Advanced Care Plan is present, code status is documented, or surrogate decision maker is listed in patient medical record.: Yes Medication Reconciliation I have utilized all available resources to obtain, update and review the patients current medications (includes all prescriptions, OTC, herbals, cannabis, and nutritional supplements).: Yes
== END 2024-02-17 19:00 | DRG 309 ==
LOC: ANHED 02-11 06:31 → ANHIMU 02-11 07:23 → ANH3MEDSUR 02-15 11:00 → ANHIMU 02-18 15:16
PROVIDERS: Nurse Practitioner Acute Care; Admitting Provider Internal Medicine; Emergency Provider Emergency Medicine; PCP Family Medicine; Visit Provider Nurse Practitioner Family
DX: I48.91 Unspecified atrial fibrillation (principal); I50.32 Chronic diastolic (congestive) heart failure; J81.1 Chronic pulmonary edema; N39.0 Urinary tract infection, site not specified; W18.09XA Striking against other object with subsequent fall, initial encounter; B96.1 Klebsiella pneumoniae [K. pneumoniae] as the cause of diseases classified elsewhere; D64.9 Anemia, unspecified; E03.9 Hypothyroidism, unspecified; E78.5 Hyperlipidemia, unspecified; E78.2 Mixed hyperlipidemia; E83.42 Hypomagnesemia; E11.9 Type 2 diabetes mellitus without complications; F41.9 Anxiety disorder, unspecified; G47.33 Obstructive sleep apnea (adult) (pediatric); I42.8 Other cardiomyopathies; I35.0 Nonrheumatic aortic (valve) stenosis; I48.20 Chronic atrial fibrillation, unspecified; K21.9 Gastro-esophageal reflux disease without esophagitis; M47.812 Spondylosis without myelopathy or radiculopathy, cervical region; Z99.89 Dependence on other enabling machines and devices; Z79.01 Long term (current) use of anticoagulants; Z86.711 Personal history of pulmonary embolism; Z90.49 Acquired absence of other specified parts of digestive tract; Z66 Do not resuscitate; Z79.84 Long term (current) use of oral hypoglycemic drugs; Z11.52 Encounter for screening for COVID-19; Z86.73 Personal history of transient ischemic attack (TIA), and cerebral infarction without residual deficits
CPT/HCPCS: 36415; 70450; 71045; 71250; 72125; 73030; 73502; 73560; 73590; 74176; 80053; 81001; 82948; 83036; 83605; 83735; 84100; 84443; 84484; 85025; 87040; 87077; 87086; 87088; 87186; 87635; 93005; 96374; 96375; 96376; 97110; 97116; 97161; 97165; 97530; 97535; 99285; A9270; C8929; G0378; J0696; J1171; J1815; J1885; J2270; J3475; J7050; Q9957

== ENCOUNTER 2024-02-25 23:58 | Emergency (ER) | payer OTHER, SELFPAY ==
--- NOTE | ~2024-02-25 | XR_ITS ---
EXAMINATION: XR chest 1V portable DATE: 02/26/2024 05:19 INDICATION: Cough TECHNIQUE: frontal view of the chest was obtained. COMPARISON: Chest radiograph dated 02/13/[address] dated 02/26/2024 FINDINGS: Calcified nodule right midlung zone. Very small right pleural effusion with minimal blunting at the c ostophrenic angle. No other airspace opacities, pulmonary edema, pneumothorax or left-sided pleural e ffusion. Cardiomegaly. Mild thoracic dextrocurvature with severe spondylosis. IMPRESSION: 1. Cardiomegaly. 2. Very small right pleural effusion. Reviewed, dictated and finalized at location A. [employer]OR
--- NOTE | ~2024-02-25 | CT_ITS ---
EXAMINATION: CT chest abdomen pelvis w con DATE: 02/26/2024 04:49 INDICATION: Cough, nausea, vomiting and abdominal pain. TECHNIQUE: Computed tomography (CT) of the chest, abdomen, and pelvis was performed with 100 mL Omnip aque-350 intravenous contrast. Automated exposure control and iterative reconstruction technique were employed. The dose-length product was 1237.65 mGy-cm. COMPARISON: 02/11/2024 FINDINGS: CHEST CT: Calcified nodules in the right upper lobe and in the lingula along the major fissure consistent with old granulomatous disease. There is mild scattered discoid atelectasis in both lungs. Minimal groundg lass opacity and some smooth septal line thickening at the right apex is additional smooth septal fortino e thickening at the right lung base consistent with minimal pulmonary edema. Very small right pleural effusion. Cardiomegaly with biatrial enlargement. Atherosclerotic coronary artery calcifications. Pe rsistent small pericardial effusion was some pericardial calcifications along the inferolateral wall of the left ventricle which could be seen with constrictive pericarditis. Thoracic aorta is normal in caliber with no dissection. There is enlargement of the central pulmonary arteries consistent with p ulmonary arterial hypertension. No pathologically enlarged thoracic lymphadenopathy. Multinodular goi ter with coarse calcifications and nodules measuring up to 1.3 cm maximal diameter. ABDOMEN/PELVIS CT: Chronic dilation of the common bile duct to 1.3 cm likely related to prior cholecystectomy and hyster ectomy with no visualized gallbladder. Liver is normal with no significant intrahepatic biliary ducta l dilation. Spleen, pancreas and right adrenal gland are normal. Stable appearance dating back to 03/21 in nodular thickening of the left adrenal gland which could be due to small adenomas or adrenal hyperplasia. Bilateral renal cysts measuring up to 3.9 cm on the right and 3.3 cm on the left. Bilat eral nonobstructing nephrolithiasis with 3 mm stone at the upper pole the left kidney and 2 mm stone at the interpolar region of the right kidney. No ureteral stones or hydronephrosis. There is mild col onic diverticulosis with a sigmoid predominance. There is no adjacent inflammatory change to suggest diverticulitis. No bowel obstruction. The appendix is not visualized. No pericecal inflammatory yesi nge to suggest acute appendicitis. Bladder is normal. The uterus is not identified and has likely bee n surgically resected. Multiple phleboliths in the pelvis. No free intraperitoneal gas or fluid. No p athologically enlarged abdominal or pelvic lymphadenopathy. Thoracic, lumbar and lower cervical spond ylosis. Stable appearance of a chronic L1 compression fracture with 40% central vertebral body height loss. Old healed intertrochanteric fracture the proximal femur with internal fixation. IMPRESSION: 1. Likely congestive heart failure with cardiomegaly, minimal pulmonary edema in the right lung and v whitney small right pleural effusion. 2. Unchanged small pericardial effusion with pericardial calcification which could be seen with const rictive pericarditis. 3. Bilateral nonobstructing nephrolithiasis. 4. Mild diverticulosis. Reviewed, dictated and finalized at location A. ATORY HUNTER IMPRESSION: 1. Likely congestive heart failure with cardiomegaly, minimal pulmonary edema i n the right lung and very small right pleural effusion. 2. Unchanged small pericardial effusion with pericardial calcification which co uld be seen with constrictive pericarditis. 3. Bilateral nonobstructing nephrolithiasis. 4. Mild diverticulosis.
[2024-02-26 00:05] VITALS: BP 161/109; PULSE 118; RESP 20; TEMP 38; O2SAT 92
--- NOTE | 2024-02-26 04:00 | ECG_ITS ---
Test Date: 2024-02-26 04:27:14 Measurements Intervals [place] Rate: 113 P: 0 AL: 0 QRS: 88 QRSD: 98 T: 17 QT: 295 QTc: 406 Interpretive Statements ATRIAL FIBRILLATION WITH RAPID VENTRICULAR RESPONSE Poor R wave progression Compared to ECG 02/12/2024 13:17:42 no changes Electronically Signed On 02-26-2024 18:40:19 COSTUME CUTTER by Óscar Skinner M.D.
[2024-02-26 04:19] LABS: Basophils Percent Auto 0.3 % (0.2-1.2); Eosinophils Percent Auto 0.2 % (0-4.4); Hematocrit 33.5 % (37.0-47.0); Hemoglobin 10.3 g/dL (12.0-15.0); Immature Granulocyte Absolute 0.03 K/mm3 (0.00-0.031); Immature Granulocyte Percent A 0.3 % (0-0.5); Lymphocytes Absolute Auto 0.96 K/mm3 (0.9-3.2); Lymphocytes Percent Auto 9.6 % (18.3-44.2); Mean Corpuscular HGB Conc 30.7 g/dl (32-36); Mean Corpuscular Hemoglobin 28.1 pg (26-34); Mean Corpuscular Volume 91.3 fl (80-100); Mean Platelet Volume 8.9 fl (7.4-10.4); Monocytes Absolute Auto 0.6 K/mm3 (0.1-0.6); Monocytes Percent Auto 5.6 % (2.6-8.5); Neutrophils Absolute Auto 8.4 K/mm3 (1.3-6.7); Platelet Count Result 290 k/mm3 (150-375); Red Blood Count 3.67 M/mm3 (4.2-5.4); Red Cell Distribution Width 17.3 % (11.5-14.5)
[2024-02-26] MEDS: SODIUM CHLORIDE 0.9% IV 1,000 ML 999 ML IV CONT (04:20)
[2024-02-26] MEDS: FAMOTIDINE 20 MG/2 ML VIAL IV PUSH (04:21)
[2024-02-26] MEDS: ONDANSETRON INJ 4 MG/2 ML VIAL IV PUSH (04:21)
[2024-02-26 04:29] LABS: Lactic Acid Reflex 1.5 mmol/L (0.7-2.0)
[2024-02-26 04:31] LABS: Alanine Aminotransferase 17 U/L (6-35); Albumin Level 4.1 g/dL (3.5-5.1); Alkaline Phosphatase 127 U/L (38-126); Anion Gap 7 mmol/L (4-12); Aspartate Amino Transferase 20 U/L (14-36); Bilirubin,Total 0.8 mg/dL (0.2-1.3); Blood Urea Nitrogen 14 mg/dL (7-17); Calcium 9.5 mg/dL (8.4-10.2); Carbon Dioxide 25 mmol/L (22-30); Chloride 103 mmol/L (98-107); Estimated CRCL calculation 70 ml/min; Estimated Glomerular Filt Rate > 60; Glucose 166 mg/dL (65-110); Lipase 38 U/L (23-300); Potassium 3.9 mmol/L (3.4-5.0); Sodium 135 mmol/L (137-145)
[2024-02-26 04:42] LABS: Troponin I < 0.012 ng/mL (0.000-0.034)
--- NOTE | 2024-02-26 06:15 | ED.NAVMDI ---
HPI - Nausea/Vomiting/Diarrhea General Chief complaint: Nausea/Vomiting/Diarrhea <Lázaro Ramsey MD - Last Filed: 02/26/24 08:22> Stated complaint: vomiting <Lázaro Ramsey MD - Last Filed: 02/26/24 08:22> Time Seen by Provider: 02/26/24 03:43 <Lázaro Ramsey MD - Last Filed: 02/26/24 08:22> History of Present Illness HPI Narrative: 84-year-old female with extensive past medical history including heart failure, atrial fibrillation on Eliquis, GERD, Zenker's diverticula, peptic ulcer disease confirmed on endoscopy. Today patient presents to the emergency department for evaluation of nausea, vomiting, body aches and fever. Patient states that she was just discharged from the hospital and for last few days has been having nonspecific symptoms including by nasal drainage, body aches, cough. She states that she is having some nonproductive cough that causes her to have some difficulty breathing. Endorses nausea and vomiting it started today. Denies any chest pain, abdominal pain, back pain. States that other members in the care facility or also having similar symptoms. <Lázaro Ramsey MD - Last Filed: 02/26/24 08:22> Related Data Home medications: Home Medications ?Medication ?Instructions ?Recorded ?Confirmed ?Last Taken ?Type apixaban 5 mg tablet (Eliquis) 5 mg PO Q12H 06/28/19 02/24/24 12/28/23 History rosuvastatin 20 mg tablet 20 mg PO HS 12/14/19 02/24/24 Unknown History cholecalciferol (vitamin D3) 25 50 mcg PO DAILY 05/12/22 02/24/24 Unknown History mcg (1,000 unit) capsule fluoxetine 20 mg capsule 40 mg PO DAILY 05/12/22 02/24/24 Unknown History glipizide 10 mg tablet 10 mg PO BID 05/12/22 02/24/24 Unknown History spironolactone 25 mg tablet 50 mg PO DAILY 05/12/22 02/24/24 Unknown History acetaminophen 500 mg tablet 1,000 mg PO Q6H PRN Pain (Scale 12/30/23 02/24/24 Unknown History Score 1-3) calcium carbonate (Tums) 400 mg PO Q6H PRN Acid Reflux 12/30/23 02/24/24 Unknown History metformin 500 mg tablet 500 mg PO BIDWMEAL 12/30/23 02/24/24 Unknown History methocarbamol 500 mg tablet 500 mg PO TID 12/30/23 02/24/24 Unknown History ondansetron 4 mg disintegrating 4 mg PO TID PRN Nausea And Vomiting 02/11/24 02/24/24 Unknown History tablet pantoprazole 40 mg tablet,delayed 40 mg PO BID 02/11/24 02/24/24 Unknown History release (Protonix) <Lázaro Ramsey MD - Last Filed: 02/26/24 08:22> Allergies/Adverse reactions: Allergies Allergy/AdvReac Type Severity Reaction Status Date / Time lisinopril Allergy Severe cough Verified 02/01/24 15:43 amlodipine Allergy Difficulty Verified 02/01/24 15:43 Breathing MILI Inhibitors AdvReac Severe cough Verified 02/01/24 15:43 atorvastatin AdvReac Mild Muscle Pain Verified 02/01/24 15:43 citalopram AdvReac Mild Unknown Verified 02/01/24 15:43 hydrochlorothiazide AdvReac Dizziness Verified 02/01/24 15:43 <Lázaro Ramsey MD - Last Filed: 02/26/24 08:22> Review of Systems Review of Systems: As reviewed above in HPI <Lázaro Ramsey MD - Last Filed: 02/26/24 08:22> [facility] Past Medical History Medical History: Medical History 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) Obstructive sleep apnea on CPAP Heart failure with preserved ejection fraction Chronic anticoagulation Pulmonary embolus Hx of radiation therapy Anxiety Zenkers diverticulum Chronic atrial fibrillation Gastro-esophageal reflux disease without esophagitis Generalized anxiety disorder Mixed hyperlipidemia Subclinical hypothyroidism Type 2 diabetes mellitus without complications <Lázaro Ramsey MD - Last Filed: 02/26/24 08:22> Surgical History Surgical History: Surgical History History of open reduction and internal fixation (ORIF) procedure repair left femur fracture History of hysterectomy History of hip surgery History of cholecystectomy History of tonsillectomy <Lázaro Ramsey MD - Last Filed: 02/26/24 08:22> Family History Family History: Family History Father Family history of cardiovascular disease Family history of coronary artery disease Depression Mother Family history of cardiovascular disease Family history of coronary artery disease Grandparent Cerebrovascular accident <Lázaro Ramsey MD - Last Filed: 02/26/24 08:22> Social History Social History: Social History Social History: Surrogate medical decision maker: Homer Culp, margot. Code status: DNR She is and lost a son a few years ago. Smoking status: Never smoker Second hand tobacco smoke exposure: No Alcohol intake: never Substance use: never Substance use type: does not use Do You Feel Safe in your Home?: Yes Lack of Transportation: No Lack of Food: Never True Current Housing: I Have Housing Concerned About Future Housing: No Difficulty Paying Gas/Electric Bills: No Difficulty Paying for Meds: No Currently Unemployed: No Education: Grade School Difficulty w/ Childcare or Family Care: No Occupation/Education: retired Spiritual care concerns: No <Lázaro Ramsey MD - Last Filed: 02/26/24 08:22> Exam Narrative: GENERAL: Chronically ill-appearing, not in any acute distress, able answer all questions appropriately, awake alert and oriented HEAD: [Normocephalic, atraumatic.] EYES: [PERRLA and EOMI.] ENT: Nares clear, no rhinorrhea or epistaxis. Mucous membranes moist. NECK: Supple. CHEST: Clear to auscultation without any wheezing, rhonchi or rales, no signs of respiratory distress or tachypnea HEART: [Regular rate and rhythm]. No murmur heard. [Normal peripheral pulses.] ABDOMEN: [Soft, nondistended], [nontender], [No rigidity or guarding] EXTREMITIES: Normal range of motion. [No edema.] SKIN: Warm, dry, no rash. NEURO: [No focal deficits]. Alert and oriented [x3.] PSYCH: [Normal mood and affect.] <Lázaro Ramsey MD - Last Filed: 02/26/24 08:22> Course Reevaluation(s) Reevaluation #1: See after medications, patient's heart rate is now in the 80s to 90s. She is resting very comfortably, she states she feels much better, she is no longer nauseous, she would like to go home at this time and I feel this is quite reasonable. She would like to have a prescription for Mucinex, this will be provided along with Flonase, I have let her know she can return to the ER for any further issues or for symptoms return and she is agreeable to this plan. <Teresa Metcalf MD - Last Filed: 02/26/24 09:26> Vital Signs Vital signs: Vital Signs Temperature 100.4 F H 02/26/24 00:05 Pulse Rate 118 H 02/26/24 00:05 Respiratory Rate 20 02/26/24 00:05 Blood Pressure 161/109 H 02/26/24 00:05 Pulse Oximetry 92 02/26/24 00:05 Oxygen Delivery Room Air 02/26/24 00:05 Temperature 98 F 02/26/24 07:33 Pulse Rate 121 H 02/26/24 08:36 Respiratory Rate 16 02/26/24 08:36 Blood Pressure 129/85 02/26/24 08:36 Pulse Oximetry 93 02/26/24 08:36 Oxygen Delivery Room Air 02/26/24 00:05 <Lázaro Ramsey MD - Last Filed: 02/26/24 08:22> Vital Signs Temperature 100.4 F H 02/26/24 00:05 Pulse Rate 118 H 02/26/24 00:05 Respiratory Rate 20 02/26/24 00:05 Blood Pressure 161/109 H 02/26/24 00:05 Pulse Oximetry 92 02/26/24 00:05 Oxygen Delivery Room Air 02/26/24 00:05 Temperature 98 F 02/26/24 07:33 Pulse Rate 121 H 02/26/24 08:36 Respiratory Rate 16 02/26/24 08:36 Blood Pressure 129/85 02/26/24 08:36 Pulse Oximetry 93 02/26/24 08:36 Oxygen Delivery Room Air 02/26/24 00:05 <Teresa Metcalf MD - Last Filed: 02/26/24 09:26> MDM - Nausea/Vomiting/Diarrhea MDM Narrative Medical decision making narrative: 84-year-old female presenting to the emergency department for evaluation of myalgias, nausea, vomiting, cough and occasionally difficulty in breathing. States that her symptoms started several days ago for the nausea vomiting happened today. States that she has had sick contacts. She is febrile here with a temperature 38? C, slightly tachycardic with an irregular rhythm consistent with her known atrial fibrillation. Will treat her fever and provider gentle hydration with her known history of heart failure and I do not suspect that we need to aggressively rate control her at this time given that is not causing any hemodynamic compromise and likely reactive to her fever and potentially underlying infectious process. A cardiac workup was ordered this time including a chest x-ray, EKG, troponin, CBC, CMP. Given her age and risk factors a broad investigation with CT chest thorax abdomen and pelvis was ordered at this time with contrast for further delineation of the see if there is any infectious source. Suspicions presently for an upper respiratory or lower respiratory infection especially given her recent hospitalization. She otherwise sounds like she has clear breath sounds and not any respiratory distress which is reassuring. Workup pending at this time and patient frequent re-evaluated. Patient's fever did come down with Tylenol. Still slightly tachycardic with a pulse of 110, was given home dose of her metoprolol and started on IV diuretic therapy as she has evidence of fluid overload on her imaging studies. No acute infectious pathology identified on her chest abdomen or pelvis CT or urine. Patient is signed out to the oncoming ED physician Dr. Metcalf at 0700 pending re-evaluation after diuretic therapy and rate controlling medications to see if she is clinically improved. Final dispo pending re-evaluation. <Lázaro Ramsey MD - Last Filed: 02/26/24 08:22> Medical Records Attestation: I reviewed the patient's medical records. <Lázaor Ramsey MD - Last Filed: 02/26/24 08:22> Lab Data Attestation: I reviewed the patient's lab results. <Lázaro Ramsey MD - Last Filed: 02/26/24 08:22> Result diagrams: 12/13/24 04:14 02/26/24 04:14 <Lázaro Ramsey MD - Last Filed: 02/26/24 08:22> Labs: Lab Results 02/26/24 02/26/24 02/26/24 Range/Units 04:14 06:11 06:15 WBC 10.0 (4.5-10.0) K/mm3 RBC 3.67 L (4.2-5.4) M/mm3 Hgb 10.3 L (12.0-15.0) g/dL Hct 33.5 L (37.0-47.0) % MCV 91.3 (80-100) fl MCH 28.1 (26-34) pg MCHC 30.7 L (32-36) g/dl RDW 17.3 H (11.5-14.5) % Plt Count 290 (150-375) k/mm3 MPV 8.9 (7.4-10.4) fl Immature Gran % (Auto) 0.3 (0-0.5) % Neut % (Auto) 84.0 H (45.5-73.1) % Lymph % (Auto) 9.6 L (18.3-44.2) % [place] % (Auto) 5.6 (2.6-8.5) % Eos % (Auto) 0.2 (0-4.4) % Baso % (Auto) 0.3 (0.2-1.2) % Lymph # (Auto) 0.96 (0.9-3.2) K/mm3 [place] # (Auto) 0.6 (0.1-0.6) K/mm3 Eos # (Auto) 0.0 (0-0.3) K/mm3 Baso # (Auto) 0.0 (0.0-0.1) K/mm3 Abs Immat Gran (auto) 0.03 (0.00-0.031) K/mm3 Absolute Neuts (auto) 8.4 H (1.3-6.7) K/mm3 Absolute Nucleated RBC 0.000 (0.0-0.012) K/mm3 Nucleated RBC % 0.0 (0.0-0.2) % Sodium 135 L (137-145) mmol/L Potassium 3.9 (3.4-5.0) mmol/L Chloride 103 (98-107) mmol/L Carbon Dioxide 25 (22-30) mmol/L Anion Gap 7 (4-12) mmol/L BUN 14 D (7-17) mg/dL Creatinine 0.50 L (0.7-1.0) mg/dL Estim Creat Clear Calc 70 ml/min Estimated GFR > 60 (59 - ) Glucose 166 H (65-110) mg/dL Lactic Acid 1.5 (0.7-2.0) mmol/L Calcium 9.5 (8.4-10.2) mg/dL Total Bilirubin 0.8 (0.2-1.3) mg/dL AST 20 (14-36) U/L ALT 17 (6-35) U/L Alkaline Phosphatase 127 H (38-126) U/L Troponin I < 0.012 (0.000-0.034) ng/mL Total Protein 7.0 (6.3-8.2) g/dL Albumin 4.1 (3.5-5.1) g/dL Lipase 38 (23-300) U/L Urine Color Yellow (Yellow) Urine Appearance Cloudy H (Clear) Urine pH 5.5 (5.0-9.0) Ur Specific [place] > 1.045 H (1.001-1.035) Urine Protein 2+ H (Negative) mg/dL Urine Glucose (UA) Negative (Negative) mg/dL Urine Ketones 1+ H (Negative) mg/dL Ur Blood (Man) 3+ H (Negative) Urine Nitrate Negative (Negative) Urine Bilirubin Negative (Negative) Urine Urobilinogen 0.2 (<2.0) mg/dL Leukocyte Esterase Rfl Trace H (Negative) AYDEN/UL Urine RBC 0-2 (0-2) /hpf Urine WBC 0-5 (0-3) /hpf Ur Squamous Epith Cells Few (Few) /hpf Urine Bacteria 1+ /hpf Influenza A (RT-PCR) Negative (Negative) Influenza B (RT-PCR) Negative (Negative) RSV (RT-PCR) Negative (Negative) SARS-CoV-2 RNA (RT-PCR) Negative (Negative) <Lázaro Ramsey MD - Last Filed: 02/26/24 08:22> Lab Results 02/26/24 02/26/24 02/26/24 Range/Units 04:14 06:11 06:15 WBC 10.0 (4.5-10.0) K/mm3 RBC 3.67 L (4.2-5.4) M/mm3 Hgb 10.3 L (12.0-15.0) g/dL Hct 33.5 L (37.0-47.0) % MCV 91.3 (80-100) fl MCH 28.1 (26-34) pg MCHC 30.7 L (32-36) g/dl RDW 17.3 H (11.5-14.5) % Plt Count 290 (150-375) k/mm3 MPV 8.9 (7.4-10.4) fl Immature Gran % (Auto) 0.3 (0-0.5) % Neut % (Auto) 84.0 H (45.5-73.1) % Lymph % (Auto) 9.6 L (18.3-44.2) % [place] % (Auto) 5.6 (2.6-8.5) % Eos % (Auto) 0.2 (0-4.4) % Baso % (Auto) 0.3 (0.2-1.2) % Lymph # (Auto) 0.96 (0.9-3.2) K/mm3 [place] # (Auto) 0.6 (0.1-0.6) K/mm3 Eos # (Auto) 0.0 (0-0.3) K/mm3 Baso # (Auto) 0.0 (0.0-0.1) K/mm3 Abs Immat Gran (auto) 0.03 (0.00-0.031) K/mm3 Absolute Neuts (auto) 8.4 H (1.3-6.7) K/mm3 Absolute Nucleated RBC 0.000 (0.0-0.012) K/mm3 Nucleated RBC % 0.0 (0.0-0.2) % Sodium 135 L (137-145) mmol/L Potassium 3.9 (3.4-5.0) mmol/L Chloride 103 (98-107) mmol/L Carbon Dioxide 25 (22-30) mmol/L Anion Gap 7 (4-12) mmol/L BUN 14 D (7-17) mg/dL Creatinine 0.50 L (0.7-1.0) mg/dL Estim Creat Clear Calc 70 ml/min Estimated GFR > 60 (59 - ) Glucose 166 H (65-110) mg/dL Lactic Acid 1.5 (0.7-2.0) mmol/L Calcium 9.5 (8.4-10.2) mg/dL Total Bilirubin 0.8 (0.2-1.3) mg/dL AST 20 (14-36) U/L ALT 17 (6-35) U/L Alkaline Phosphatase 127 H (38-126) U/L Troponin I < 0.012 (0.000-0.034) ng/mL Total Protein 7.0 (6.3-8.2) g/dL Albumin 4.1 (3.5-5.1) g/dL Lipase 38 (23-300) U/L Urine Color Yellow (Yellow) Urine Appearance Cloudy H (Clear) Urine pH 5.5 (5.0-9.0) Ur Specific [place] > 1.045 H (1.001-1.035) Urine Protein 2+ H (Negative) mg/dL Urine Glucose (UA) Negative (Negative) mg/dL Urine Ketones 1+ H (Negative) mg/dL Ur Blood (Man) 3+ H (Negative) Urine Nitrate Negative (Negative) Urine Bilirubin Negative (Negative) Urine Urobilinogen 0.2 (<2.0) mg/dL Leukocyte Esterase Rfl Trace H (Negative) AYDEN/UL Urine RBC 0-2 (0-2) /hpf Urine WBC 0-5 (0-3) /hpf Ur Squamous Epith Cells Few (Few) /hpf Urine Bacteria 1+ /hpf Influenza A (RT-PCR) Negative (Negative) Influenza B (RT-PCR) Negative (Negative) RSV (RT-PCR) Negative (Negative) SARS-CoV-2 RNA (RT-PCR) Negative (Negative) <Teresa Metcalf MD - Last Filed: 02/26/24 09:26> Imaging Data Attestation: I personally reviewed and interpreted this imaging study as follows: <Lázaro Ramsey MD - Last Filed: 02/26/24 08:22> My impression: Impressions Chest/Abdomen/Pelvis CT 02/26/24 06:29 IMPRESSION: 1. Likely congestive heart failure with cardiomegaly, minimal pulmonary edema in the right lung and very small right pleural effusion. 2. Unchanged small pericardial effusion with pericardial calcification which could be seen with constrictive pericarditis. 3. Bilateral nonobstructing nephrolithiasis. 4. Mild diverticulosis. Chest X-Ray 02/26/24 06:56 IMPRESSION: 1. Cardiomegaly. 2. Very small right pleural effusion. <Lázaro Ramsey MD - Last Filed: 02/26/24 08:22> ECG Data EKG #1: Attestation: I personally reviewed and interpreted this ECG as follows: <Lázaro Ramsey MD - Last Filed: 02/26/24 08:22> ECG completion date: 02/26/24 <Lázaro Ramsey MD - Last Filed: 02/26/24 08:22> ECG completion time: 04:27 <Lázaro Ramsey MD - Last Filed: 02/26/24 08:22> Prior ECG tracings: available for review <Lázaro Ramsey MD - Last Filed: 02/26/24 08:22> Interpretation: Atrial fibrillation with no identifiable P waves, slightly elevated intra-ocular response but no signs of ST segment elevations, depressions or inversions. Compared to previous EKG overall very similar in appearance. Final impression AFib with elevated ventricular response, no signs of acute ischemic changes <Lázaro Ramsey MD - Last Filed: 02/26/24 08:22> Discharge Plan Discharge Clinical Impression: Fever, A-fib, Nausea & vomiting, CHF (congestive heart failure) <Lázaro Ramsey MD - Last Filed: 02/26/24 08:22> Patient Disposition: [facility] <Lázaro Ramsey MD - Last Filed: 02/26/24 08:22> Condition: Stable <Lázaro Ramsey MD - Last Filed: 02/26/24 08:22> Instructions: Antibiotic Form <Lázaro Ramsey MD - Last Filed: 02/26/24 08:22> Additional Instructions: Please follow up with your doctor; you can always return for any further issues especially if you start having any trouble breathing, palpitations, or nausea/vomiting. <Lázaro Ramsey MD - Last Filed: 02/26/24 08:22> Patient Language: Montserratian <Lázaro Ramsey MD - Last Filed: 02/26/24 08:22> Prescriptions: New famotidine 20 mg tablet 20 mg PO DAILY Qty: 30 0RF ondansetron 4 mg tablet,disintegrating 4 mg PO Q8H PRN (Reason: nausea and vomiting) Qty: 10 0RF fluticasone propionate [Allergy Relief (fluticasone)] 50 mcg/actuation spray,suspension 1 spray intranasal DAILY Qty: 16 0RF Rx Instructions: administer into each nostril guaifenesin [Mucinex] 600 mg tablet extended release 12hr 600 mg PO BID PRN (Reason: congestion) Qty: 30 0RF No Action glipizide 10 mg tablet 10 mg PO BID spironolactone 25 mg tablet 50 mg PO DAILY fluoxetine 20 mg capsule 40 mg PO DAILY cholecalciferol (vitamin D3) 25 mcg (1,000 unit) Capsule 50 mcg PO DAILY lidocaine [Lidoderm] 5 % adhesive patch,medicated 1 patch topical DAILY Qty: 15 0RF Patient Comments: apply to lower back Rx Instructions: leave on most painful area for up to 12 hrs Eliquis 5 mg tablet 5 mg PO Q12H rosuvastatin 20 mg tablet 20 mg PO HS acetaminophen 500 mg Tablet 1,000 mg PO Q6H PRN (Reason: Pain (Scale Score 1-3)) methocarbamol 500 mg tablet 500 mg PO TID metformin 500 mg Tablet 500 mg PO BIDWMEAL calcium carbonate [Tums] 200 mg calcium (500 mg) Tablet,Chewable 400 mg PO Q6H PRN (Reason: Acid Reflux) pantoprazole [Protonix] 40 mg Tablet,Delayed Release (Dr/Ec) 40 mg PO BID ondansetron 4 mg Tablet,Disintegrating 4 mg PO TID PRN (Reason: Nausea And Vomiting) levofloxacin 750 mg tablet 750 mg PO DAILY Qty: 4 0RF Rx Instructions: start on 02/18/24 sucralfate 100 mg/mL Suspension 1,000 mg PO ACHS Qty: 420 0RF polyethylene glycol 3350 [Miralax] 17 gram Powder In Packet 17 g PO QAM Qty: 30 0RF metoprolol tartrate 50 mg Tablet 50 mg PO Q12HR Qty: 60 0RF oxycodone 5 mg tablet 5 mg PO Q6H PRN (Reason: pain) Qty: 14 0RF methocarbamol 750 mg Tablet 750 mg PO TID 14 Days Qty: 42 0RF levothyroxine [Synthroid] 25 mcg tablet 50 mcg PO DAILY Qty: 180 1RF alprazolam 0.5 mg tablet 0.5 mg PO BID PRN (Reason: anxiety) 14 Days Qty: 30 0RF <Lázaro Ramsey MD - Last Filed: 02/26/24 08:22> Follow-up/Referrals: Chava,[place] Neal MD [Primary Care Provider] - 2 Days <Lázaro Ramsey MD - Last Filed: 02/26/24 08:22>
[2024-02-26 06:27] LABS: Add Urine Microscopic? YES; Appearance Urine Cloudy (Clear); Bilirubin Urine Negative (Negative); Blood Urine 3+ (Negative); Color Urine Yellow (Yellow); Glucose Urine UA Negative (Negative); Ketones Urine 1+ mg/dL (Negative); Leukocyte Esterase Ur Trace LEU/UL (Negative); Nitrate Urine Negative (Negative); Protein Urine 2+ mg/dL (Negative); Specific Grav Ur > 1.045 (1.001-1.035); Urobilinogen Urine 0.2 mg/dL (<2.0); pH Urine 5.5 (5.0-9.0)
[2024-02-26 06:30] VITALS: BP 138/102; PULSE 109; RESP 14; O2SAT 96
[2024-02-26 06:38] LABS: RBC Urine 0-2 /hpf (0-2)
[2024-02-26 06:39] LABS: Bacteria Urine 1+ /hpf; Squamous Epithelial Cell Urine Few /hpf (Few); WBC Urine 0-5 /hpf (0-3)
[2024-02-26 06:53] LABS: Influenza A QL RT-PCR Negative (Negative); Influenza B QL RT-PCR Negative (Negative); RSV RNA, RT-PCR Negative (Negative); SARS-CoV-2 RNA PCR Negative (Negative)
[2024-02-26 07:33] VITALS: BP 156/103; PULSE 112; RESP 20; TEMP 36.6; O2SAT 93
[2024-02-26] MEDS: ACETAMINOPHEN 500 MG TABLET 1000 MG PO (07:33)
[2024-02-26 08:03] VITALS: PULSE 110
[2024-02-26] MEDS: METOPROLOL TARTRATE 50 MG TAB PO (08:03)
[2024-02-26] MEDS: FUROSEMIDE INJ 40 MG/4 ML VIAL IV PUSH (08:03)
[2024-02-26 08:36] VITALS: BP 129/85; PULSE 121; RESP 16; O2SAT 93
== END 2024-02-26 10:40 ==
PROVIDERS: Student in an Organized Health Care Education/Training Program; Emergency Provider Emergency Medicine; PCP Family Medicine
DX: R11.2 Nausea with vomiting, unspecified (principal); R50.9 Fever, unspecified; I48.20 Chronic atrial fibrillation, unspecified; I50.9 Heart failure, unspecified; Z20.822 Contact with and (suspected) exposure to COVID-19; E03.8 Other specified hypothyroidism; E11.9 Type 2 diabetes mellitus without complications; E78.2 Mixed hyperlipidemia; K21.9 Gastro-esophageal reflux disease without esophagitis; G47.33 Obstructive sleep apnea (adult) (pediatric); F41.1 Generalized anxiety disorder; Z66 Do not resuscitate; Z86.73 Personal history of transient ischemic attack (TIA), and cerebral infarction without residual deficits; Z86.711 Personal history of pulmonary embolism; Z87.11 Personal history of peptic ulcer disease; Z92.3 Personal history of irradiation; Z90.710 Acquired absence of both cervix and uterus; Z90.49 Acquired absence of other specified parts of digestive tract; Z79.01 Long term (current) use of anticoagulants; Z79.899 Other long term (current) drug therapy; Z79.84 Long term (current) use of oral hypoglycemic drugs; N20.0 Calculus of kidney; K57.90 Diverticulosis of intestine, part unspecified, without perforation or abscess without bleeding; I51.7 Cardiomegaly
CPT/HCPCS: 36415; 71045; 71260; 74177; 80053; 81001; 83605; 83690; 84484; 85025; 87637; 93005; 96361; 96374; 96375; 99284; A9270; J1940; J2405; J7030; Q9967

== ENCOUNTER 2024-03-05 23:59 | Emergency (ER) | payer OTHER, SELFPAY ==
--- NOTE | ~2024-03-05 | XR_ITS ---
EXAMINATION: XR chest 2V DATE: 03/06/2024 00:53 INDICATION: Shortness of breath. TECHNIQUE: Frontal and lateral views of the chest were obtained. COMPARISON: Chest single view 02/26/2024 FINDINGS: A calcified right lung nodule is consistent with old granulomatous disease. Andrew B-lines are noted, consistent with mild pulmonary edema. There are small pleural effusions. No pneumothorax. Cardiomegaly is noted. IMPRESSION: 1. Mild pulmonary edema. 2. Small pleural effusions. 3. Cardiomegaly. Reviewed, dictated and finalized at location A. [employer]
[2024-03-06] VITALS (11 sets, daily range): BP systolic 150–158; BP diastolic 87–123; PULSE 95–117; RESP 18–26; TEMP 36.3; O2SAT 92–96
[2024-03-06 00:24] LABS: Basophils Percent Auto 0.3 % (0.2-1.2); Eosinophils Absolute Auto 0.1 K/mm3 (0-0.3); Eosinophils Percent Auto 1.2 % (0-4.4); Hematocrit 31.1 % (37.0-47.0); Hemoglobin 9.6 g/dL (12.0-15.0); Immature Granulocyte Absolute 0.03 K/mm3 (0.00-0.031); Immature Granulocyte Percent A 0.3 % (0-0.5); Lymphocytes Absolute Auto 1.14 K/mm3 (0.9-3.2); Lymphocytes Percent Auto 13.2 % (18.3-44.2); Mean Corpuscular HGB Conc 30.9 g/dl (32-36); Mean Corpuscular Hemoglobin 27.3 pg (26-34); Mean Corpuscular Volume 88.4 fl (80-100); Mean Platelet Volume 9.4 fl (7.4-10.4); Monocytes Absolute Auto 0.6 K/mm3 (0.1-0.6); Monocytes Percent Auto 6.7 % (2.6-8.5); Neutrophils Absolute Auto 6.7 K/mm3 (1.3-6.7); Neutrophils Percent Auto 78.3 % (45.5-73.1); Platelet Count Result 327 k/mm3 (150-375); Red Blood Count 3.52 M/mm3 (4.2-5.4); Red Cell Distribution Width 17.6 % (11.5-14.5); White Blood Count 8.6 K/mm3 (4.5-10.0)
--- NOTE | 2024-03-06 00:34 | ED_ITS ---
HPI - General Adult General Chief complaint: Recheck/Abnormal Lab/Rx Stated complaint: weakness Time Seen by Provider: 03/06/24 00:01 History of Present Illness HPI narrative: 84-year-old female present to the emergency department for evaluation for cough and congestion. Patient is currently on antibiotics, cefdinir for a pneumonia. snf and stated that the patient did want to take her medications. Patient states this is a true and patient is always eager to take her medications. Patient states that she has had persistent weakness and intermittent shortness of breath. Patient does have history of AFib Related Data Home Medications ?Medication ?Instructions ?Recorded ?Confirmed ?Last Taken ?Type apixaban 5 mg tablet (Eliquis) 5 mg PO Q12H 06/28/19 03/02/24 12/28/23 History rosuvastatin 20 mg tablet 20 mg PO HS 12/14/19 03/02/24 Unknown History cholecalciferol (vitamin D3) 25 50 mcg PO DAILY 05/12/22 03/02/24 Unknown History mcg (1,000 unit) capsule fluoxetine 20 mg capsule 40 mg PO DAILY 05/12/22 03/02/24 Unknown History glipizide 10 mg tablet 10 mg PO BID 05/12/22 03/02/24 Unknown History spironolactone 25 mg tablet 50 mg PO DAILY 05/12/22 03/02/24 Unknown History acetaminophen 500 mg tablet 1,000 mg PO Q6H PRN Pain (Scale 12/30/23 03/02/24 Unknown History Score 1-3) calcium carbonate (Tums) 400 mg PO Q6H PRN Acid Reflux 12/30/23 03/02/24 Unknown History metformin 500 mg tablet 500 mg PO BIDWMEAL 12/30/23 03/02/24 Unknown History methocarbamol 500 mg tablet 500 mg PO TID 12/30/23 03/02/24 Unknown History ondansetron 4 mg disintegrating 4 mg PO TID PRN Nausea And Vomiting 02/11/24 03/02/24 Unknown History tablet pantoprazole 40 mg tablet,delayed 40 mg PO BID 02/11/24 03/02/24 Unknown History release (Protonix) Allergies Allergy/AdvReac Type Severity Reaction Status Date / Time lisinopril Allergy Severe cough Verified 03/06/24 00:22 amlodipine Allergy Difficulty Verified 03/06/24 00:22 Breathing MILI Inhibitors AdvReac Severe cough Verified 03/06/24 00:22 atorvastatin AdvReac Mild Muscle Pain Verified 03/06/24 00:22 citalopram AdvReac Mild Unknown Verified 03/06/24 00:22 hydrochlorothiazide AdvReac Dizziness Verified 03/06/24 00:22 [facility] Past Medical History Medical History 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) Obstructive sleep apnea on CPAP Heart failure with preserved ejection fraction Chronic anticoagulation Pulmonary embolus Hx of radiation therapy Anxiety Zenkers diverticulum Chronic atrial fibrillation Gastro-esophageal reflux disease without esophagitis Generalized anxiety disorder Mixed hyperlipidemia Subclinical hypothyroidism Type 2 diabetes mellitus without complications Surgical History Surgical History History of open reduction and internal fixation (ORIF) procedure repair left femur fracture History of hysterectomy History of hip surgery History of cholecystectomy History of tonsillectomy Family History Family History Father Family history of cardiovascular disease Family history of coronary artery disease Depression Mother Family history of cardiovascular disease Family history of coronary artery disease Grandparent Cerebrovascular accident Social History Social History Social History: Surrogate medical decision maker: Homer Culp, son. Code status: DNR She is and lost a son a few years ago. Smoking status: Never smoker Second hand tobacco smoke exposure: No Alcohol intake: never Substance use: never Substance use type: does not use Do You Feel Safe in your Home?: Yes Lack of Transportation: No Lack of Food: Never True Current Housing: I Have Housing Concerned About Future Housing: No Difficulty Paying Gas/Electric Bills: No Difficulty Paying for Meds: No Currently Unemployed: No Education: Grade School Difficulty w/ Childcare or Family Care: No Occupation/Education: retired Spiritual care concerns: No Course Vital Signs Vital signs: Vital Signs Temperature 97.4 F L 03/06/24 00:00 Pulse Rate 110 H 03/06/24 00:00 Respiratory Rate 24 H 03/06/24 00:00 Blood Pressure 158/109 H 03/06/24 00:00 Pulse Oximetry 96 03/06/24 00:00 Oxygen Delivery Room Air 03/06/24 00:00 Temperature 97.4 F L 03/06/24 00:00 Pulse Rate 95 03/06/24 01:33 Respiratory Rate 18 03/06/24 01:33 Blood Pressure 150/87 H 03/06/24 01:20 Pulse Oximetry 93 03/06/24 01:33 Oxygen Delivery Room Air 03/06/24 00:00 Medical Decision Making [facility] Narrative Medical decision making narrative: 84-year-old female presents emergency department for evaluation for continued to feel ill while having a current pneumonia diagnosis. Chest x-ray still appears to be pneumonia, patient reports he still has approximately 5 days left of antibiotics. Patient is currently afebrile with no leukocytosis and hemoglobin of 9.6. No significant acute abnormalities on the patient's CMP patient was negative for influenza RSV and for COVID. Chest x-ray does show pneumonia but patient is well-appearing. Patient has no O2 requirement is saturating well on room air patient is not tachycardic. Vital Signs Vital Signs: Vital Signs Temperature 97.4 F L 03/06/24 00:00 Pulse Rate 110 H 03/06/24 00:00 Respiratory Rate 24 H 03/06/24 00:00 Blood Pressure 158/109 H 03/06/24 00:00 Pulse Oximetry 96 03/06/24 00:00 Oxygen Delivery Room Air 03/06/24 00:00 Temperature 97.4 F L 03/06/24 00:00 Pulse Rate 95 03/06/24 01:33 Respiratory Rate 18 03/06/24 01:33 Blood Pressure 150/87 H 03/06/24 01:20 Pulse Oximetry 93 03/06/24 01:33 Oxygen Delivery Room Air 03/06/24 00:00 Lab Data 03/06/24 00:18 03/06/24 00:18 Labs: Lab Results 03/06/24 Range/Units 00:18 WBC 8.6 (4.5-10.0) K/mm3 RBC 3.52 L (4.2-5.4) M/mm3 Hgb 9.6 L (12.0-15.0) g/dL Hct 31.1 L (37.0-47.0) % MCV 88.4 (80-100) fl MCH 27.3 (26-34) pg MCHC 30.9 L (32-36) g/dl RDW 17.6 H (11.5-14.5) % Plt Count 327 (150-375) k/mm3 MPV 9.4 (7.4-10.4) fl Immature Gran % (Auto) 0.3 (0-0.5) % Neut % (Auto) 78.3 H (45.5-73.1) % Lymph % (Auto) 13.2 L (18.3-44.2) % Whitfield % (Auto) 6.7 (2.6-8.5) % Eos % (Auto) 1.2 (0-4.4) % Baso % (Auto) 0.3 (0.2-1.2) % Lymph # (Auto) 1.14 (0.9-3.2) K/mm3 Whitfield # (Auto) 0.6 (0.1-0.6) K/mm3 Eos # (Auto) 0.1 (0-0.3) K/mm3 Baso # (Auto) 0.0 (0.0-0.1) K/mm3 Abs Immat Gran (auto) 0.03 (0.00-0.031) K/mm3 Absolute Neuts (auto) 6.7 (1.3-6.7) K/mm3 Absolute Nucleated RBC 0.000 (0.0-0.012) K/mm3 Nucleated RBC % 0.0 (0.0-0.2) % Sodium 135 L (137-145) mmol/L Potassium 3.6 (3.4-5.0) mmol/L Chloride 104 (98-107) mmol/L Carbon Dioxide 24 (22-30) mmol/L Anion Gap 7 (4-12) mmol/L BUN 21 H (7-17) mg/dL Creatinine 0.50 L (0.7-1.0) mg/dL Estim Creat Clear Calc 74 ml/min Estimated GFR > 60 (59 - ) Glucose 197 H (65-110) mg/dL Calcium 9.2 (8.4-10.2) mg/dL Total Bilirubin 0.8 (0.2-1.3) mg/dL AST 25 (14-36) U/L ALT 18 (6-35) U/L Alkaline Phosphatase 112 (38-126) U/L Total Protein 6.0 L (6.3-8.2) g/dL Albumin 3.7 (3.5-5.1) g/dL Influenza A (RT-PCR) Negative (Negative) Influenza B (RT-PCR) Negative (Negative) RSV (RT-PCR) Negative (Negative) SARS-CoV-2 RNA (RT-PCR) Negative (Negative) Discharge Plan Discharge Clinical Impression: Pneumonia Patient Disposition: NH Fdc/Asst Living Condition: Stable Instructions: Antibiotic Form Additional Instructions: Continue to take your antibiotics as directed until completed. Have close follow-up with your primary care physician. Patient Language: Turkish Prescriptions: No Action glipizide 10 mg tablet 10 mg PO BID spironolactone 25 mg tablet 50 mg PO DAILY fluoxetine 20 mg capsule 40 mg PO DAILY cholecalciferol (vitamin D3) 25 mcg (1,000 unit) Capsule 50 mcg PO DAILY lidocaine [Lidoderm] 5 % adhesive patch,medicated 1 patch topical DAILY Qty: 15 0RF Patient Comments: apply to lower back Rx Instructions: leave on most painful area for up to 12 hrs Eliquis 5 mg tablet 5 mg PO Q12H rosuvastatin 20 mg tablet 20 mg PO HS acetaminophen 500 mg Tablet 1,000 mg PO Q6H PRN (Reason: Pain (Scale Score 1-3)) methocarbamol 500 mg tablet 500 mg PO TID metformin 500 mg Tablet 500 mg PO BIDWMEAL calcium carbonate [Tums] 200 mg calcium (500 mg) Tablet,Chewable 400 mg PO Q6H PRN (Reason: Acid Reflux) famotidine 20 mg tablet 20 mg PO DAILY Qty: 30 0RF ondansetron 4 mg tablet,disintegrating 4 mg PO Q8H PRN (Reason: nausea and vomiting) Qty: 10 0RF fluticasone propionate [Allergy Relief (fluticasone)] 50 mcg/actuation spray,suspension 1 spray intranasal DAILY Qty: 16 0RF Rx Instructions: administer into each nostril guaifenesin [Mucinex] 600 mg tablet extended release 12hr 600 mg PO BID PRN (Reason: congestion) Qty: 30 0RF pantoprazole [Protonix] 40 mg Tablet,Delayed Release (Dr/Ec) 40 mg PO BID ondansetron 4 mg Tablet,Disintegrating 4 mg PO TID PRN (Reason: Nausea And Vomiting) levofloxacin 750 mg tablet 750 mg PO DAILY Qty: 4 0RF Rx Instructions: start on 02/18/24 sucralfate 100 mg/mL Suspension 1,000 mg PO ACHS Qty: 420 0RF polyethylene glycol 3350 [Miralax] 17 gram Powder In Packet 17 g PO QAM Qty: 30 0RF metoprolol tartrate 50 mg Tablet 50 mg PO Q12HR Qty: 60 0RF oxycodone 5 mg tablet 5 mg PO Q6H PRN (Reason: pain) Qty: 14 0RF methocarbamol 750 mg Tablet 750 mg PO TID 14 Days Qty: 42 0RF levothyroxine [Synthroid] 25 mcg tablet 50 mcg PO DAILY Qty: 180 1RF alprazolam 0.5 mg tablet 0.5 mg PO BID PRN (Reason: anxiety) 14 Days Qty: 30 0RF Follow-up/Referrals: Chava,C[place] Neal MD [Primary Care Provider] -
[2024-03-06 00:36] LABS: Alanine Aminotransferase 18 U/L (6-35); Albumin Level 3.7 g/dL (3.5-5.1); Alkaline Phosphatase 112 U/L (38-126); Anion Gap 7 mmol/L (4-12); Aspartate Amino Transferase 25 U/L (14-36); Bilirubin,Total 0.8 mg/dL (0.2-1.3); Blood Urea Nitrogen 21 mg/dL (7-17); Calcium 9.2 mg/dL (8.4-10.2); Carbon Dioxide 24 mmol/L (22-30); Chloride 104 mmol/L (98-107); Estimated CRCL calculation 74 ml/min; Estimated Glomerular Filt Rate > 60; Glucose 197 mg/dL (65-110); Potassium 3.6 mmol/L (3.4-5.0); Sodium 135 mmol/L (137-145)
[2024-03-06 01:01] LABS: Influenza A QL RT-PCR Negative (Negative); Influenza B QL RT-PCR Negative (Negative); RSV RNA, RT-PCR Negative (Negative); SARS-CoV-2 RNA PCR Negative (Negative)
[2024-03-06] MEDS: SODIUM CHLORIDE 0.9% IV 500 ML 999 ML IV CONT (01:17)
--- NOTE | 2024-03-06 02:54 | PC.NURSE ---
Attempted to call report to [facility], was transferred to the floor where patient resides, no answer. Will attempt to call again.
--- NOTE | 2024-03-06 03:10 | PC.NURSE ---
Attempted to call report again to [facility], unable to do so. Spoke with the maintainer operator, informed that the patients son is bringing patient back.
--- OUTSIDE RECORDS SUMMARY | 2024-03-13 01:05 | XMS_ITS | Encounter Summary ---
Author Organization [facility] Address [address] [place] [address]. [place], [place] [id number] [place] [id number] Care Team Providers Care Retail Loss Prevention Investigator Name Role Phone Unavailable Primary Care Provider Unavailabl e Encounter Details Date Type Department Care Team (Late st Contact Info) Description 07/27/2003 Abstract [facility] CONVERSION [address] [place] [address] , Generic Conversion, Social History Tobacco Use Types Packs/Day Years Used Date Smoking Tobacco: Never Assessed Comments Unknown Sex and Gender Information Value Date Recorded Sex Assigned at Not on file Legal Sex Female 7:25 PM CDT Gender Identity Not on file Sexual Orientation Not on file documented as of this encounter Plan of Treatment Not on file documented as of this encounter Visit Diagnoses Not on filedocumented in this encounter
--- OUTSIDE RECORDS SUMMARY | 2024-03-13 01:05 | XMS_ITS | Encounter Summary ---
Author Organization [facility] Address [address] [place] [address]. [place], [place] [id number] [place] [id number] Care Team Providers Care Athletic Agent Name Role Phone Unavailable Primary Care Provider Unavailabl e Encounter Details Date Type Department Care Team (Late st Contact Info) Description 02/03/2003 Abstract [facility] CONVERSION [address] [place] [address] , Generic Conversion, Social History Tobacco Use [...]
--- OUTSIDE RECORDS SUMMARY | 2024-03-13 01:05 | XMS_ITS | Encounter Summary ---
Author Organization [facility] Address [address] [place] [address]. [place], [place] [id number] [place] [address] Care Team Providers Care Pipe Insulator Helper Name Role Phone Ryann Galdamez PA-C Primary Care Provider [phone] Cathleen Walker MD Unavailable [phone] Reason for Visit * Auth/Cert Specialty Diagnoses / Procedures Referred By Indra muñoz Referred To Contact Diagnoses GROSS CALCIUM KIDNEY STONE Procedures RIGHT EXTRA CORPOREAL SHOCK WAVE LITHOTRIPSY CYSTOSCOPY WITH POSSIBLE RIGHT RETROGRADE PYELOGRAM Referral ID Status Reason Start Date Expiration Date Visits Re quested Visits Authorized [id number] 1 1 Encounter Details Date Type Department Care Team (Late st Contact Info) Description 05/21/2021 6:37 AM BLACK TOP MACHINE OPERATOR - 05/21/2021 11:35 AM [facility] Hospital Encounter [facility] [place] [address] Migel Jara MD 3 [facility] [address] [facility] [place] [address] Discharge Disposition: Home or Self Care (Routine Discharge) Social History Tobacco Use Types Packs/Day Years Used Date Smoking Tobacco: Never Smokeless Tobacco: Never Alcohol Use Standard Drinks/Week Comments Not Currently 0 (1 standard drink = 0.6 oz pure alcohol) No alcohol for several years. used to drink a highball once a month Comments No Sex and Gender Information Value Date Recorded Sex Assigned at Not on file Legal Sex Female 7:25 PM CDT Gender Identity Not on file Sexual Orientation Not on file COVID-19 Exposure Response Date Recorded In the last 10 days, have yo u been in contact with someone who was confirmed or suspected to have Coronavirus/COVID-19? No / Unsure 05/21/2021 6:36 AM BLACK TOP MACHINE OPERATOR documented as of this encounter Last Filed Vital Signs Vital Sign Reading Time Taken Comments Blood Pressure 113/87 05/21/2021 11:33 AM BLACK TOP MACHINE OPERATOR Pulse 91 05/21/2021 11:33 AM BLACK TOP MACHINE OPERATOR Temperature 36.1 ??C (97 ??F) 05/21/2021 11:33 AM BLACK TOP MACHINE OPERATOR Respiratory Rate 18 05/21/2021 11:33 AM BLACK TOP MACHINE OPERATOR Oxygen Saturation 100% 05/21/2021 11:33 AM BLACK TOP MACHINE OPERATOR Inhaled Oxygen Concentration - - Weight 71 kg (156 lb 8.4 oz) 05/21/2021 7:00 AM BLACK TOP MACHINE OPERATOR Height 157.5 cm (5' 2 ) 05/21/2021 7:00 AM BLACK TOP MACHINE OPERATOR Body Mass Index 28.63 05/21/2021 7:00 AM BLACK TOP MACHINE OPERATOR documented in this encounter Discharge Instructions * Discharge Instructions* Antoinette Beavers RN - 05/21/2021 10:18 AM BLACK TOP MACHINE OPERATOR No driving on narcotics call the office to schedule appointment in 1 month. No aspirin for minimum of 1 week you may resume your eliquis in 5 days.. No heavy lifting or sexual activity for 1 week. Call if excessive bleeding, voiding difficulties, fevers chills or if any other concerning symptoms develop. If you have chest pain, shortness of breath, calf pain, excessive bleeding or drainage, if you cannot hold down anything to eat or drink, or if you cannot urinate, please call 911 or go to the nearest emergency room. If you have fever, pain not controlled by your medication, signs of infection such as redness or discharge or swelling at the site, or any other questions or concerns, please call your surgeon. Because you had anesthesia No driving for 24 hrs/ or while taking narcotic pain medication No alcohol, no operating machinery, do not sign any binding contracts for 24 hrs/ or while taking narcotic pain medications. Take pain medicine with food. Drink lots of fluids Use stool softener while on narcotics Resume your regular diet and advance as tolerated. Avoid greasy, fried or spicy foods for the rest of today Must have a responsible adult to stay with you for the rest of today and tonight. Home and rest, activity as tolerated. LITHOTRIPSY INSTRUCTIONS Your urine will be bloody and should begin to clear a few days after your treatment. Increase fluids until your urine clears. Call your doctor if you develop a fever above 100 degrees of have thick, blood clotted urine. If your doctor hasn???t given you a prescription for pain relievers, take two Tylenol every four hours, as needed. If the pain does not get better, call your doctor. If you received a prescription for antibiotics, take all of the medication as directed. Do not discontinue this medication until all the pills are gone. Return to your usual medications, unless otherwise directed by your doctor. Do not take aspirin products until your urine begins to clear. Avoid heavy lifting (over 25 to 30 pounds) for long periods of time during the first week after Lithotripsy. You may have some bruising, redness or slight swelling at your treatment site. Apply an ice pack tothe affected area for any swelling you may have today. After 24 hours use warm heat, along with your pain medication, for relief. Placing a pillow behind the lower area of your back while sitting or driving may help relieve any ache or pain you have. Strain your urine as directed for two to three weeks following Lithotripsy. Take any fragments you collect to your doctor to be sent for analysis. K TOP MACHINE OPERATOR K TOP MACHINE OPERATOR * Attachments The following attachments cannot be sent through Care Everywhere. * Extracorporeal Shock Wave Lithotripsy Discharge Instructions (Maltese) * Cystoscopy Discharge Instructions (Maltese) * General Anesthesia Discharge Instructions (Maltese) * Hydrocodone and Acetaminophen, ADULT (Maltese) documented in this encounter Medications at Time of Discharge acetaminophen 500 MG tablet Take 1,000 mg by mouth every 6 (six) hours as needed for Pain. ALPRAZolam 0.5 MG tablet Take 0.5 mg by mouth 3 (three) times daily as needed for Sleep. apixaban 5 MG tabletIndications :Kidney stone Take 1 tablet (5 mg total) by mouth 2 (two) times daily. ELIQUIS You may resume eliquis in 5 days 60 tablet 05/21/2021 Ascorbic Acid (VITAMIN C) 500 MG Cap Take 1 capsule by mouth daily. carvedilol 25 MG tablet Take 25 mg by mouth 2 (two) times daily. furosemide 40 MG tablet Take 40 mg by mouth daily. glipiZIDE XL 10 MG 24 hr tablet Take 10 mg by mouth daily with breakfast. Do not break or crush tablet levothyroxine 50 MCG tablet Take 50 mcg by mouth every morning. metFORMIN 500 MG tablet Take 500 mg by mouth 2 (two) times daily with meals. Multiple Vitamins-Minerals (CENTRUM SILVER OR) Take 1 tablet by mouth daily. potassium chloride CR 20 MEQ tablet Take 20 mEq by mouth daily. rosuvastatin 20 MG tablet Take 20 mg by mouth nightly at bedtime. vitamin D3, cholecalciferol, 1000 UNIT Tab tablet Take 1 tablet by mouth 2 (two) times a day. zinc gluconate 50 MG Tab Take 1 tablet by mouth daily. zolpidem 10 MG tablet Take 10 mg by mouth nightly as needed for Sleep. cephALEXin 500 MG capsuleIndication s:Kidney stone Take 1 capsule (500 mg total) by mouth 3 (three) times daily for 3 days. 9 capsule 05/21/2021 05/24/2021 HYDROcodone-aceta minophen 5-325 MG tabletIndications :Acute Pain < 7 Day Supply Take 1 tablet by mouth every 6 (six) hours as needed for Pain. Indications: Acute Pain < 7 Day Supply 15 tablet 05/21/2021 05/25/2021 documented as of this encounter Progress Notes * Antoinette Beavers RN - 05/21/2021 11:30 AM CST Pt taken by wheelchair and able to ambulate independently into vehicle with discharge instructions in hand. Pt and son verbalized understanding of instructions and follow up. Pt and son shown how to strain urine. ANTOINETTE BEAVERS RN K TOP MACHINE OPERATOR documented in this encounter H&P Notes * Migel Jara MD - 05/21/2021 7:54 AM CST Attending Provider: Migel Jara MD PCP: RYANN GALDAMEZ PA-C Prema Pearce is an 81-year-old female. Reason for Admission: * No active hospital problems. * HPI: This is an 81-year-old female who was found to have a right 8 mm stone. She currently feels well with no recent illnesses she denies hematuria dysuria no upper respiratory symptoms. She was seen and counseled on management options of kidney stone disease as an outpatient she elected to proceed withlithotripsy. She does not take any aspirin or NSAIDs. She stopped taking her blood thinner 3 days ago. Repeat lab work is pending. Past Medical History: Diagnosis Date ??? Aortic stenosis, moderate ??? Atrial fibrillation (CMS/HCC) ??? Cardiomyopathy (CMS/HCC) ??? Compound fracture 05/2019 developed DVT when crushed knee, distracted while going down back steps and missed bottom 2 steps. compound fracture ??? Coronary artery disease ??? Depression ??? Diabetes mellitus (CMS/HCC) ??? DVT (deep vein thrombosis) in 05/2019 developed DVT when crushed knee, distracted while going down back steps and missed bottom 2 steps. compound fracture ??? Feeling grief several recent deaths: son 05/05/21 from Covid-19 pneumonia. was at [facility] 3 weeks then airlifted to a hospital in [place], [place] for 2 weeks. step son in 2020, then in September 2020, and a good friend of hers March 2021 ??? Heart failure (CMS/HCC) ??? Hypertension ??? Hypothyroidism ??? AYAD on CPAP ??? PE (pulmonary thromboembolism) (CMS/HCC) 05/2019 developed DVT when crushed knee, distracted while going down back steps and missed bottom 2 steps. compound fracture Allergies: Allergies Allergen Reactions ??? Amlodipine Shortness of Breath ??? Prasanth Inhibitors Cough Reaction: COUGH, ??? Citalopram Unknown ??? Lisinopril-Hydrochlorothiazide Nausea Only and Dizziness Dizzy, nauseated Social History Tobacco Use ??? Smoking status: Never Smoker ??? Smokeless tobacco: Never Used Substance Use Topics ??? Alcohol use: Not Currently Comment: No alcohol for several years. used to drink a highball once a month Past Surgical History: Procedure Laterality Date ??? CARDIOVERSION,ANESTHESIA 2009 ??? COLONOSCOPY ??? HYSTERECTOMY 1991 ??? JOINT REPLACEMENT 05/2019 ??? WRIST FRACTURE SURGERY Left ORIF Family History Problem Relation Name Age of Onset ??? Heart Disease Mother ??? Heart Disease Father ??? Diabetes Father ??? Diabetes Son Travel Exposure: No current facility-administered medications on file prior to encounter. Current Outpatient Medications on File Prior to Encounter Medication Sig ??? acetaminophen 500 MG tablet Take 1,000 mg by mouth every 6 (six) hours as needed for Pain. ??? ALPRAZolam 0.5 MG tablet Take 0.5 mg by mouth 3 (three) times daily as needed for Sleep. ??? apixaban 5 MG tablet Take 5 mg by mouth 2 (two) times daily. ELIQUIS ??? Ascorbic Acid (VITAMIN C) 500 MG Cap Take 1 capsule by mouth daily. ??? carvedilol 25 MG tablet Take 25 mg by mouth 2 (two) times daily. ??? furosemide 40 MG tablet Take 40 mg by mouth daily. ??? glipiZIDE XL 10 MG 24 hr tablet Take 10 mg by mouth daily with breakfast. Do not break or crushtablet ??? levothyroxine 50 MCG tablet Take 50 mcg by mouth every morning. ??? metFORMIN 500 MG tablet Take 500 mg by mouth 2 (two) times daily with meals. ??? Multiple Vitamins-Minerals (CENTRUM SILVER OR) Take 1 tablet by mouth daily. ??? potassium chloride CR 20 MEQ tablet Take 20 mEq by mouth daily. ??? rosuvastatin 20 MG tablet Take 20 mg by mouth nightly at bedtime. ??? vitamin D3, cholecalciferol, 1000 UNIT Tab tablet Take 1 tablet by mouth 2 (two) times a day. ??? zinc gluconate 50 MG Tab Take 1 tablet by mouth daily. ??? zolpidem 10 MG tablet Take 10 mg by mouth nightly as needed for Sleep. Blood pressure 126/87, pulse 66, temperature 97.7 ??F (36.5 ??C), temperature source Temporal, resp. rate 18, height 5' 2 (1.575 m), weight 71 kg (156 lb 8.4 oz), last menstrual period 05/13/1991, SpO2 97 %. Review of Systems Constitutional: Negative. HENT: Negative. Eyes: Negative. Respiratory: Negative. Cardiovascular: Negative. Gastrointestinal: Negative. Genitourinary: Negative. Musculoskeletal: Negative. Skin: Negative. Neurological: Negative. Endo/Heme/Allergies: Negative. Psychiatric/Behavioral: Negative. Physical Exam Constitutional: Appearance: Normal appearance. HENT: Head: Normocephalic and atraumatic. Nose: Nose normal. Mouth/Throat: Mouth: Mucous membranes are moist. Eyes: Pupils: Pupils are equal, round, and reactive to light. Cardiovascular: Rate and Rhythm: Normal rate. Pulmonary: Effort: Pulmonary effort is normal. No respiratory distress. Breath sounds: No wheezing. Abdominal: General: Abdomen is flat. There is no distension. Tenderness: There is no abdominal tenderness. Musculoskeletal: Cervical back: Normal range of motion. Skin: General: Skin is warm. Capillary Refill: Capillary refill takes less than 2 seconds. Neurological: General: No focal deficit present. Mental Status: She is alert and oriented to person, place, and time. Psychiatric: Mood and Affect: Mood normal. Behavior: Behavior normal. Assessment: Right renal stone Plan: Plan for right ESWL Risk, benefits and alternatives, nature the procedure and potential complications have been reviewed. Patient was seen and counseled as an outpatient on management options of kidney stones she electsfor lithotripsy. Risk including but not limited to bleeding, infection, trauma to surrounding/adjacent structures damage to kidney, spleen, pancreas, bowel and major blood vessels, damage to surrounding structures, risk of ESWL failure, failure to fragment stones, risk of Steinstrasse and stone obstruction which can require secondary stone procedure in addition anesthesia and positioning complications of heart attack, stroke, blood clots, pulmonary embolus, , disability and other unforeseen complications have been reviewed. Patient voiced understanding is agreeable proceed she understands she needs to stay off her blood thinners for additional 5 days after lithotripsy to decrease bleeding risks. MIGEL JARA MD 05/21/2021 HISTORY AND PHYSICAL INTERVAL NOTE: I have reviewed Prema Pearce History & Physical which was performed within the past 30 days. After examining Prema Pearce, no change has occurred in the patient's condition since the H&P was completed. Informed Consent Discussion: Potential benefits, risks, and side effects of the patient's procedure/surgery; the likelihood of the patient achieving his or her goals; and any potential problems that might occur during recuperation were discussed with the patient/family/personal client relations representative. Reasonable alternatives to the patient's proposed procedure/surgery including benefits, risks, and side effects related to the alternatives and the risks related to not receiving the proposed care were also discussed with the patient/family/personal client relations representative. Questions were answered and the patient/family/personal client relations representative verbalized understanding and desires to proceed. K TOP MACHINE OPERATOR documented in this encounter Nursing Notes * Anna Morrell RN - 05/21/2021 8:44 AM CST FLEXIBLE CYSTOSCOPE SN#[id number]. K TOP MACHINE OPERATOR * Anna Morrell RN - 05/21/2021 8:33 AM CST CALLED PATIENTS SON MINISTERIO TO LET HIM KNOW THAT SURGERY HAS STARTED AND EVERYTHING IS GOING WELL ANDTHAT DR. JARA WILL TALK TO HIM WHEN SURGERY IS FINISHED. UPDATED @ 0834. K TOP MACHINE OPERATOR documented in this encounter OR Notes * Op Note - Migel Jara MD - 05/21/2021 9:13 AM CST RIGHT EXTRA CORPOREAL SHOCK WAVE LITHOTRIPSY. FLEXIABLE CYSTOSCOPY Procedure Note Indications: The patient underwent surgery on 05/21/2021 for right renal stone microhematuria @OPNOTEHEAD@ Procedure Details Description of procedure: The patient brought back to the operating room received a general anesthetic via LMA she was prepped and draped in standard surgical fashion in the frog-leg position on the Dornier lithotripsy table. The stone was easily visualized on police pilot fluoroscopy. The genitalia were prepped with Betadine. SCD boots were on and functional preoperatively for DVT prophylaxis. She received a preoperative dose of intravenous cefazolin. After appropriate timeout appropriate radiological films were displayed in room the 16 English flexible cystoscope was inserted the urinary bladder the urinary bladder was normal, the urethra was normal with no evidence of stricture the mucosa was normal no evidence of tumor lesion mass or stone she had single orthotopic bilateral ureteral orificeseffluxing clear yellow urine. The scope was retroflexed to evaluate the bladder neck the bladder neck appeared grossly normal. Patient was repositioned in the supine position and the scope was removed. Stone was localized to the treatment zone with use of biplanar fluoroscopy. At a low setting at arate of 60 Hz began to shock the stone. After 300 shocks were performed a 3-minute pause allow for renal equilibration. We gently ramped up the power from 0.1-2.0, the stone appeared to fragment under low power. We increased the rate to 90 Hz. The stone appeared to fragment nicely with smudging theborders and became much more radiolucent to suggest adequate fragmentation. A total of 2500 shocks were given. The patient was awoken and transferred to postoperative recovery in stable condition. Noimmediate complications. Discussed the intraoperative findings and the postoperative restrictions and follow-up with family all questions answered Findings: Expected/anticipated Complications: None immediate Estimated Blood Loss: Minimal Drains: Total IV Fluids: Specimens: * No specimens in log * Implants: @ORIMPLANT2@ Disposition: PACU Condition: stable K TOP MACHINE OPERATOR * OR PreOp - CATY Tsai - 05/14/2021 9:01 AM CST Chart reviewed. Per phone interview, patient states she can slowly climb 2 FOS without SOB or CP. Denies recent changes in activity tolerance in past 6 months. Patient sees bunch breaker Dr. Walker and had recent cardiac testing but no information available in chart. Please request last office note and cardiac testing to review for surgery. Patient will also need cardiac clearance for surgery, already requested by surgeon's office as well. Addendum 3/- Cardiac records now in [facility], reviewed, and hx updated. EKG and Cardiac Cath sent from office in [place] and testing copied. Clearance letter also now in [facility]. Patient does not need COVID testing prior to surgery, he/she has completed their COVID vaccine series more than 14 days prior to surgery date. Immunization records in [facility]. Cardiac clearance per Dr. Walker. Recommended to hold Eliquis for 48 hours prior to procedure andresume when hemodynamically stable. EKG 09/13/20 Atrial fibrillation Nonspecific T wave abnormality Rate 76 Cardiac Cath 09/13/20 1. Mildly elevated LV systolic pressure during the study 2. Mildly elevated LV end diastolic pressure during the study 3. There is a gradient across the aortic valve of 20 mmHg on pullback 4. There is no significant obstruction of the [place] coronary arteries. There is, however, significant tortuosity of the coronary vessels, suggestive of hypertensive heart disease K TOP MACHINE OPERATOR K TOP MACHINE OPERATOR * OR PreOp - Jennifer Isaac RN - 05/13/2021 3:24 PM CST States she can slowly climb 2 flights of stairs without chest pain or SOB, crushed knee in 2019 andwas in rehab for a while, still has issues with knee. States no change in exercise tolerance in thelast 6 months. Counter Waitress/Waiter: Dr Cathleen Walker. Had cardiac cath August 2020 at [facility], also and echocardiogram.. Hx a fib. Patient says she called Dr Walker office (cardiology) to find out if she could hold eliquis pre-op and was told she could hold it for 48 hours before surgery and says she plans to do that. Had Moderna Covid-19 vaccine 04/25/20, 05/23/20, 02/19/21 and will not need Covid- 19 test preop. Son of Covid-19 pneumonia 05/05/2021 and patient sat with him prior to his . States she has not had Covid-19 and has no symptoms now. Will take last dose of cephalexin tomorrow and will have pre-op labs obtained at [facility] in [place] tomorrow. Uses CPAP for AYAD. . 05/14/21 1240: Faxed request for cardiac clearance, last office note, cardiac testing to Dr Quach' office and called Alise and requested same. K TOP MACHINE OPERATOR K TOP MACHINE OPERATOR K TOP MACHINE OPERATOR K TOP MACHINE OPERATOR K TOP MACHINE OPERATOR K TOP MACHINE OPERATOR K TOP MACHINE OPERATOR documented in this encounter Plan of Treatment Not on file documented as of this encounter Procedures Procedure Name Priority Date/Time Associated Diagnosis Comments POCT GLUCOSE - GALINDO DOCKED DEVICE Routine 05/21/2021 9:19 AM BLACK TOP MACHINE OPERATOR EXTRACOROPOREAL SHOCK WAVE LITHOTRIPSY UNILATERAL 05/21/2021 8:18 AM BLACK TOP MACHINE OPERATOR GROSS CALCIUM KIDNEY STONE Case Notes SCHED BY FAX ON 05/10/21 [facility] PHONE ASSESS POCT GLUCOSE - GALINDO DOCKED DEVICE Routine 05/21/2021 7:23 AM BLACK TOP MACHINE OPERATOR PARTIAL THROMBOPLASTIN TIME,PTT STAT 05/21/2021 7:20 AM BLACK TOP MACHINE OPERATOR PROTHROMBIN TIME, VENOUS STAT 05/21/2021 7:20 AM BLACK TOP MACHINE OPERATOR Preop examination Calcium kidney stone documented in this encounter Results * POCT glucose (05/21/2021 9:19 AM BLACK TOP MACHINE OPERATOR) GLUCOSE POC 98 70 - 99 mg/dL 05/21/2021 9:21 AM BLACK TOP MACHINE OPERATOR [facility] 05/21/2021 9:19 AM BLACK TOP MACHINE OPERATOR Migel Jara MD POCT ORDERABLES - DEVICE Final Result [facility] [address] [place] [address], [place] [phone] * POCT glucose (05/21/2021 7:23 AM BLACK TOP MACHINE OPERATOR) GLUCOSE POC 98 70 - 99 mg/dL 05/21/2021 11:24 AM BLACK TOP MACHINE OPERATOR [facility] 05/21/2021 7:23 AM BLACK TOP MACHINE OPERATOR Migel Jara MD POCT ORDERABLES - DEVICE Final Result Performing Organization Address City/[facility]/ZIP Co de Phone Number [facility] [address] [place] [address], [place] [phone] * PTT, PARTIAL THROMBOPLASTIN TIME (05/21/2021 7:20 AM BLACK TOP MACHINE OPERATOR) PTT 30.7 25.1 - 36.5 SEC 05/21/2021 8:11 AM BLACK TOP MACHINE OPERATOR [facility] 05/21/2021 7:20 AM BLACK TOP MACHINE OPERATOR Migel Jara MD LABORATORY Final Res ult Performing Organization Address City/[facility]/ZIP Co de Phone Number [facility] [address] [place] [address], [place] [phone] * (ABNORMAL) PROTIME/INR, VENOUS (05/21/2021 7:20 AM BLACK TOP MACHINE OPERATOR) PROTIME 13.1(H) 10.2 - 12.9 SEC 05/21/2021 7:57 AM BLACK TOP MACHINE OPERATOR [facility] INR 1.1 05/21/2021 7:57 AM BLACK TOP MACHINE OPERATOR [facility] Comment: Recommended INR Therapeutic Goals: ??2.0-3.0 Routine Therapy ??2.5-3.5 Mechanical Prosthetic Valves (High Risk) 05/21/2021 7:20 AM BLACK TOP MACHINE OPERATOR Migel Jara MD LABORATORY Final Res ult [facility] [address] [place] [address], [place] [phone] documented in this encounter Visit Diagnoses Diagnosis Kidney stone- Primary Calculus of kidney Preop examination Preoperative examination, unspecified Calcium kidney stone Calculus of kidney Kidney stone Calculus of kidney documented in this encounter Administered Medications Inactive Administered Medications - up to 3 most recent administrations Medication Order MAR Action Action Date Dose Rate Site famotidine (PEPCID) tablet 20 mg 20 mg, Oral, Once, 1 dose, On 05/21/21 at 0815, On admission, Pre-Op Given 05/21/2021 8:10 AM BLACK TOP MACHINE OPERATOR 20 mg lactated ringers infusion at 10 mL/hr, Intravenous, Continuous, Starting on 05/21/21 at 0815, Until 05/21/21 at 1351, Infuse at TKO rate, Pre-Op New Bag 05/21/2021 8:10 AM BLACK TOP MACHINE OPERATOR 10 mL/hr documented in this encounter Active and Recently Administered Medications Times are shown in BLACK TOP MACHINE OPERATOR. Scheduled Medication Order 05/19/2021 05/20/2021 05/21/2021 ceFAZolin (ANCEF) 2 g in NS 100 mL IVPB (COMPLETED) 2 g, Intravenous, at 200 mL/hr, call out operator to O.R., 1 dose, First dose on 05/21/21 at 0700, Pre-Op 0818 (Given - Provid er: Sneha Pickett CRNA)0828 (Infusion Stop Time - Provider: Sneha Pickett CRNA) famotidine (PEPCID) tablet 20 mg (COMPLETED) 20 mg, Oral, Once, 1 dose, On 05/21/21 at 0815, On admission, Pre-Op 0810 (Given - Provid er: Tess Kim RN) Continuous Medication Order 05/19/2021 05/20/2021 05/21/2021 lactated ringers infusion at 10 mL/hr, Intravenous, Continuous, Starting on 05/21/21 at 0815, Until 05/21/21 at 1351, Infuse at TKO rate, Pre-Op 0810 (New Bag - Prov ider: Tess Kim RN) documented in this encounter Care Teams Pipe Insulator Helper Relationship Specialty Start Date End Date Ryann Galdamez PA-C [address] [facility] [address] [place] [address] PCP - General PHYSICIAN COMMERCIAL REAL ESTATE ASSOCIATE 05/13/21 Cathleen Walker MD [address] [facility] [address] [place] [address] INTERNAL MEDICINE 05/13/21 documented as of this encounter
--- OUTSIDE RECORDS SUMMARY | 2024-03-13 01:05 | XMS_ITS | Encounter Summary ---
Author Organization [facility] Address [address] [place] [address]. [place], [place] [address] [place] [address] Care Team Providers Care Commercial Parts Professional Name Role Phone Ryann Galdamez PA-C Primary Care Provider [phone] Cathleen Walker MD Unavailable [phone] Encounter Details Date Type Department Care Team (Late st Contact Info) Description 05/13/2021 Prep for Procedure [place] Pre-Admission Testing [address] [place], [place] [address] Danette Pearce, LINDA [facility] [place] [address] Social History Tobacco Use Types Packs/Day Years [...] was confirmed or suspected to have Coronavirus/COVID-19? Yes 05/13/2021 3:44 PM STAFF RESPIRATORY THERAPIST documented as of this encounter Plan of Treatment Not on file documented as of this encounter Results * (ABNORMAL) URINALYSIS WI REFLEX TO CULTURE (05/14/2021 11:34 AM STAFF RESPIRATORY THERAPIST) COLOR (U) YELLOW 05/14/2021 12:02 PM [facility] TRANSPARENCY CLEAR 05/14/2021 12:02 PM [facility] SPECIFIC GRAVITY (U) 1.010 1.000 - 1.030 05/14/2021 12:02 PM [facility] U PH 6.0 5.0 - 9.0 05/14/2021 12:02 PM [facility] LEUKOCYTES (U) TRACE(A) NEGATIVE 05/14/2021 12:02 PM [facility] NITRITES NEGATIVE NEGATIVE 05/14/2021 12:02 PM [facility] PROTEIN (U) NEGATIVE NEGATIVE 05/14/2021 12:02 PM [facility] URINE GLUCOSE NEGATIVE NEGATIVE 05/14/2021 12:02 PM [facility] KETONES MG/DL (U) NEGATIVE NEGATIVE 05/14/2021 12:02 PM [facility] BILIRUBIN (U) NEGATIVE NEGATIVE 05/14/2021 12:02 PM [facility] BLOOD (U) 2+(A) NEGATIVE 05/14/2021 12:02 PM [facility] WBC/HPF 0-5 0 - 5 /HPF 05/14/2021 12:02 PM [facility] RBC/HPF 0-5 0 - 5 /HPF 05/14/2021 12:02 PM [facility] EPI/HPF RARE /HPF 05/14/2021 12:02 PM [facility] CULTURE & SENSITIVITY INDICATED? CULTURE IS NOT INDICATED 05/14/2021 12:02 PM [facility] URINE SPECIMEN OBTAINED BY CLEAN CATCH PROCEDURE / Unknown 05/14/2021 11:34 AM STAFF RESPIRATORY THERAPIST Endy Jara MD URINE ORDERABLES Final Re sult Performing Organization Address [facility]/ZIP Co de Phone Number [facility] [address] [place] [address], [place] [phone] * (ABNORMAL) PTT, PARTIAL THROMBOPLASTIN TIME (05/14/2021 11:34 AM STAFF RESPIRATORY THERAPIST) PTT 39.4(H) 27.0 - 36.8 SEC 05/14/2021 11:55 AM STAFF RESPIRATORY THERAPIST [facility] 05/14/2021 11:3 4 AM STAFF RESPIRATORY THERAPIST Endy Jara MD LABORATORY Final Res ult Performing Organization Address [facility] Co de Phone Number [facility] [address] [place] [address], [place] [phone] * (ABNORMAL) PROTIME/INR, VENOUS (05/14/2021 11:34 AM STAFF RESPIRATORY THERAPIST) PROTIME 18.2(H) 9.1 - 12.4 SEC 05/14/2021 11:55 AM STAFF RESPIRATORY THERAPIST [facility] INR 1.7 05/14/2021 11:55 AM STAFF RESPIRATORY THERAPIST [facility] Comment: Recommend INR ranges for Oral Anticoagulant Therapy: Mechanical Cardiac Values 2.5-3.5 All others indication 2.0-3.0 05/14/2021 11:3 4 AM STAFF RESPIRATORY THERAPIST Endy Jara MD LABORATORY Final Res ult Performing Organization Address [facility] Co de Phone Number [facility] [address] [place] [address], [place] [phone] * (ABNORMAL) BASIC METABOLIC PANEL (05/14/2021 11:34 AM [facility]) [facility] GLUCOSE 114(H) 70 - 99 MG/DL 05/14/2021 11:55 AM [facility] BUN 18 7 - 18 MG/DL 05/14/2021 11:55 AM [facility] CREATININE S/P/B 0.66 0.55 - 1.02 MG/DL 05/14/2021 11:55 AM [facility] SODIUM S/P/B 139 136 - 145 MMOL/L 05/14/2021 11:55 AM [facility] POTASSIUM S/P/B 4.1 3.5 - 5.1 MMOL/L 05/14/2021 11:55 AM [facility] CHLORIDE S/P/B 103 100 - 108 MMOL/L 05/14/2021 11:55 AM [facility] CO2 27.6 21 - 32 MMOL/L 05/14/2021 11:55 AM [facility] CALCIUM S/P/B 9.2 8.5 - 10.1 MG/DL 05/14/2021 11:55 AM [facility] ANION GAP 8.4 5 - 15 MMOL/L 05/14/2021 11:55 AM [facility] BUN CREATININE RATIO 27.3(H) 6 - 26 05/14/2021 11:55 AM [facility] EGFR NON-AFR. AMER. 83(L) >90 ML/MIN/1.7 3 M2 05/14/2021 11:55 AM [facility] EGFR AFR. AMER. >90 >90 ML/MIN/1.7 3 M2 05/14/2021 11:55 AM [facility] Comment: NOTE: eGFR is not calculated for patients <18 years of age. This is an estimated GFR (CKD EPI) and should not be used for calculating drug doses. 05/14/2021 11:3 4 AM STAFF RESPIRATORY THERAPIST us Endy Jara MD LABORATORY Final Res ult [facility] [address] [place] [address], * (ABNORMAL) CBC W/DIFF AUTOMATED (05/14/2021 11:34 AM STAFF RESPIRATORY THERAPIST) WBC 7.3 4.4 - 11.0 x10'3/uL 05/14/2021 11:45 AM [facility] RBC 3.81(L) 4.50 - 5.10 x10'6/uL 05/14/2021 11:45 AM [facility] HGB 10.3(L) 12.3 - 15.3 G/DL 05/14/2021 11:45 AM [facility] HCT 33.7(L) 35.9 - 44.6 % 05/14/2021 11:45 AM [facility] MCV 88.5 80.0 - 96.0 FL 05/14/2021 11:45 AM [facility] MCH 27.0 25.3 - 30.9 PG 05/14/2021 11:45 AM [facility] MCHC 30.6(L) 31.0 - 34.1 G/DL 05/14/2021 11:45 AM [facility] RDW 16.8(H) 12.4 - 15.1 % 05/14/2021 11:45 AM [facility] PLT 269 151 - 353 x10'3/uL 05/14/2021 11:45 AM [facility] MPV 9.4(L) 9.6 - 12.0 FL 05/14/2021 11:45 AM [facility] RBC MORPHOLOGY NORMAL 05/14/2021 11:45 AM [facility] PLT MORPH. NORMAL 05/14/2021 11:45 AM [facility] WBC MORPHOLOGY NORMAL 05/14/2021 11:45 AM [facility] LYMPHOCYTES % 26.8 15.8 - 45.0 % 05/14/2021 11:45 AM [facility] NEUTROPHILS % 65.1 42.1 - 71.9 % 05/14/2021 11:45 AM [facility] MONOCYTES % 7.4 5.7 - 12.5 % 05/14/2021 11:45 AM [facility] EOSINOPHILS 0.0 0.0 - 5.6 % 05/14/2021 11:45 AM [facility] BASOPHILS 0.4 0.0 - 1.3 % 05/14/2021 11:45 AM [facility] ABS. NEUTROPHILS 4.78 1.40 - 6.00 x10'3/uL 05/14/2021 11:45 AM [facility] IMMATURE GRANS % 0.3 0.0 - 0.5 % 05/14/2021 11:45 AM [facility] ABS. LYMPHOCYTES 1.97 0.80 - 4.70 x10'3/uL 05/14/2021 11:45 AM [facility] 05/14/2021 11:3 4 AM STAFF RESPIRATORY THERAPIST us Endy Jara MD LABORATORY Final Res ult [facility] [address] [place] [address], [place] [phone] documented in this encounter Visit Diagnoses Diagnosis Preop examination- Primary Preoperative examination, unspecified Calcium kidney stone Calculus of kidney documented in this encounter Care Teams Commercial Parts Professional Relationship Specialty Start Date End Date Ryann Galdamez PA-C [address] [facility] [address] [place] [address] PCP - General PHYSICIAN DIRECTOR OF MARKETING COMMUNICATIONS 05/13/21 Cathleen Walker MD [address] [facility] [address] [place] [address] INTERNAL MEDICINE 05/13/21 documented as of this encounter
--- OUTSIDE RECORDS SUMMARY | 2024-03-13 01:05 | XMS_ITS | Encounter Summary ---
Author Organization [facility] Address [address] [place] [address]. [place], [place] [address] [place] [address] Care Team Providers Care Test Carrier Name Role Phone Unavailable Primary Care Provider Unavailabl e Encounter Details Date Type Department Care Team (Late st Contact Info) Description 02/16/2003 Abstract [facility] [address] [place] [address] , Generic Conversion, Social History Tobacco Use [...]
--- OUTSIDE RECORDS SUMMARY | 2024-03-13 01:05 | XMS_ITS | Encounter Summary ---
Author Organization [facility] Address [address] [place] [address]. [place], [place] [address] [place] [address] Care Team Providers Care Supermarket Manager Name Role Phone Ryann Galdamez PA-C Primary Care Provider +- [phone] Cathleen Walker MD Unavailable [phone] Encounter Details Date Type Department Care Team (Latest Contact Info) Description 05/21/2021 Travel Social History Tobacco Use Types Packs/Day Years [...] Coronavirus/COVID-19? No / Unsure 05/21/2021 6:36 AM ALARM INVESTIGATOR documented as of this encounter Plan of Treatment Not on file documented as of this encounter Visit Diagnoses Not on filedocumented in this encounter Care Teams Supermarket Manager Relationship Specialty Start Date End Date Ryann Galdamez PA-C [address] [facility] [address] [place] [address] PCP - General PHYSICIAN DOCUMENT MANAGER 05/13/21 Cathleen Walker MD [address] [address] INTERNAL MEDICINE 05/13/21 documented as of this encounter
--- OUTSIDE RECORDS SUMMARY | 2024-03-13 01:05 | XMS_ITS | Encounter Summary ---
Author Organization [facility] Address [address] [place] [address]. [place], [place] [address] [place] [address] Care Team Providers Care Business Line Controller Name Role Phone Unavailable Primary Care Provider Unavailabl e Encounter Details Date Type Department Care Team (Late st Contact Info) Description 12/10/2001 Abstract [facility] CONVERSION [address] [place] [address] , Generic Conversion, Social History Tobacco Use [...]
--- OUTSIDE RECORDS SUMMARY | 2024-03-13 01:05 | XMS_ITS | Encounter Summary ---
Author Organization [facility] Address [address] [place] [address]. [place], [place] [address] [place] [address] Care Team Providers Care Air Brush Decorator Name Role Phone Unavailable Primary Care Provider Unavailabl e Encounter Details Date Type Department Care Team (Late st Contact Info) Description 11/19/2004 Abstract [facility] CONVERSION [address] [place] [address] , Generic Conversion, Social History Tobacco Use [...]
--- OUTSIDE RECORDS SUMMARY | 2024-03-13 01:05 | XMS_ITS | Encounter Summary ---
Author Organization [facility] Address [address] [place] [address]. [place] [address] [place] [address] Care Team Providers Care Product Support Specialist Name Role Phone Ryann Galdamez PA-C Primary Care Provider [phone]- [phone] Cathleen Walker MD Unavailable Encounter Details Date Type Department Care Team (Latest Contact Info) Description 05/13/2021 Travel Social History Tobacco Use Types Packs/Day [...] to have Coronavirus/COVID-19? Yes 05/13/2021 3:44 PM PARKING WORKER documented as of this encounter Plan of Treatment Not on file documented as of this encounter Visit Diagnoses Not on filedocumented in this encounter Care Teams Product Support Specialist Relationship Specialty Start Date End Date Ryann Galdamez PA-C [address] [facility] [address] [place] [address] PCP - General PHYSICIAN MOLD FILLER 05/13/21 Cathleen Walker MD [address] [facility] [address] [place] [address] INTERNAL MEDICINE 05/13/21 documented as of this encounter
--- OUTSIDE RECORDS SUMMARY | 2024-03-13 01:05 | XMS_ITS | Encounter Summary ---
Author Organization [facility] Address [address] [place] [address]. [place], [place] [address] [place] [address] Care Team Providers Care Catering Director Name Role Phone Unavailable Primary Care Provider Unavailabl e Encounter Details Date Type Department Care Team (Late st Contact Info) Description 09/16/2003 Abstract [facility] Emergency Room [address] [place], [place] [address] David Cristina MD Social History Tobacco Use Types Packs/Day Years [...]
--- OUTSIDE RECORDS SUMMARY | 2024-03-13 01:05 | XMS_ITS | Encounter Summary ---
Author Organization [facility] Address [address] [place] [address]. [place], [place] [id number] [place] [id number] Care Team Providers Care Reconnaissance Man Name Role Phone Ryann Galdamez PA-C Primary Care Provider [phone] Cathleen Walker MD Unavailable [phone] Reason for Visit * Auth/Cert Specialty Diagnoses / Procedures Referred By Indra muñoz Referred To Contact Diagnoses GROSS CALCIUM KIDNEY STONE Procedures RIGHT EXTRA CORPOREAL SHOCK WAVE LITHOTRIPSY CYSTOSCOPY WITH POSSIBLE RIGHT RETROGRADE PYELOGRAM Referral ID Status Reason Start Date Expiration Date Visits Re quested Visits Authorized [id number] 1 1 Encounter Details Date Type Department Care Team (Late st Contact Info) Description 05/21/2021 8:18 AM COMPUTER NETWORK SPECIALIST Anesthesia Event [facility] [place] [address] Aviva Diamond MD [facility] [place] [address] Romina Martinez FNP [address] [place] [address] Anesthesia Record Procedure Summary Procedure Name Responsible Anesthesiologist Anesthesia Start Time Anesthesia Stop Time RIGHT EXTRA CORPOREAL SHOCK WAVE LITHOTRIPSY. FLEXIABLE CYSTOSCOPY (Right: Flank) Aviva Diamond MD 05/21/21 0818 05/21/21 0920 Events Date Time Event Comment 05/21/2021 0718 AN CURATORIAL ASSISTANT Prepped [id number] AN Anesthesia Prepped 0818 An Start Patient ID and consent checked and patient reassessed. 0818 An Start Data 0820 Face Mask Applied 0820 Preoxygenation 0822 AN Immediate Reassess The pa tient was reevaluated immediately before sedation or regional anesthesia. 0823 An Induction The patient was reevaluated immediately before moderate or deep sedation use and before anesthesia induction. 0824 An LMA 0825 Anesthesia Ready 0830 an betina now Procedure start . 0911 LMA Removed 0911 Face Mask Applied 0913 An Emergence 0914 an stop data 0915 Quick Note In PACU. 0919 Post Anesthetic Care Handoff I completed my handoff to the receiving nurse during which we: 1. Identified the patient 2. Identified the responsible provider 3. Reviewed the pertinent medical history 4. Discussed the surgical course 5. Reviewed intra-op anesthesia management and issues during anesthesia 6. Set expectations for post-procedure period 7. Allowed opportunity for questions and acknowledgement of understanding. 0920 An Stop Meds Name Total ceFAZolin (ANCEF) 2 g in NS 100 mL IVPB 2 g fentaNYL (SUBLIMAZE) 100 mcg/2 mL inject ion 25 mcg lidocaine (PF) (XYLOCAINE) 2% injection 50 mg propofol (DIPRIVAN) 200 mg/20 mL injecti on 100 mg dexamethasone (DECADRON) injection 4 mg ondansetron (ZOFRAN) 4 mg/2 mL injection 4 mg ketorolac (TORADOL) 30 mg/mL injection 1 5 mg phenylephrine (LAZARO-SYNEPHRINE) injection 250 mcg ePHEDrine injection 20 mg lactated ringers infusion 1,000 mL * Agents Name O2 N2O Air Inspired Sevoflurane Sevoflurane * Blood No blood administrations on file. Lines, Drains, and Airways Type Details Placement Removal Peripheral IV Placement Date: 05/21/21; Placement Time: 730; Placed Outside of This Facility?: No; Size: 18 G; Orientation: Left; Location: Wrist; Site Prep: Chlorhexidine; Local Anesthetic: None; Insertion attempts: 1; Ultrasound-guided Placement?: No; Patient Tolerance: Tolerated well; Removal Date: 05/21/21; Removal Time: 1133; Removal Reason: Patient Discharged 05/21/21 0731 by Tess Kim RN 05/21/21 1133 by Neetu Miller RN Supraglottic Airway Placement Date: 05/21/21; Placement Time: 823; Airway Device: LMA; LMA Size: 3; Placed Outside of This Facility?: No; Placed By: MITCHELL; Style: Other (IGEL.); Insertion Attempts:1; Placement Verified By: Capnography, Chest Rise; Removal Date: 05/21/21; Removal Time: 910; Removal Person: CURATORIAL ASSISTANT; Removal Reason: End of Case 05/21/21823 by Sneha Pickett CRNA 05/21/21 09 by Sneha Pickett CRNA documented in this encounter Social History Tobacco Use Types Packs/Day Years [...] suspected to have Coronavirus/COVID-19? No / Unsure 05/22/2021 1:58 PM COMPUTER NETWORK SPECIALIST documented as of this encounter OR Notes * Anesthesia Postprocedure Evaluation - Aviva Diamond MD - 05/21/2021 11:35 AM CST Anesthesia Post-op Note Prema Pearce Procedure(s): RIGHT EXTRA CORPOREAL SHOCK WAVE LITHOTRIPSY. FLEXIABLE CYSTOSCOPY(Right Flank) Anesthesia type: general Vitals: 05/21/21 1133 BP: 113/87 Vitals: 05/21/21 1133 Pulse: 91 Vitals: 05/21/21 1133 Resp: 18 Vitals: 05/21/21 1133 Temp: 36.1 ??C Vitals: 05/21/21 1133 SpO2: 100% Patient Location: Phase II/Outpatient Level of Consciousness: awake, alert and oriented Pain Management: adequate analgesia Airway Patency: patent Respiratory Status: spontaneous ventilation, nonlabored ventilation and room air Cardiovascular Status: hemodynamically stable Post-Op Nausea: none Postoperative Hydration: euvolemic No known anesthesia related complications noted. UTER NETWORK SPECIALIST * Anesthesia Postprocedure Evaluation - Aviva Diamond MD - 05/21/2021 9:55 AM CST Anesthesia Post-op Note Prema Pearce Procedure(s): RIGHT EXTRA CORPOREAL SHOCK WAVE LITHOTRIPSY. FLEXIABLE CYSTOSCOPY(Right Flank) Anesthesia type: general Vitals: 05/21/21944 BP: 147/83 Vitals: 05/21/2145 Pulse: 90 Vitals: 05/21/2145 Resp: 18 Vitals: 05/21/2145 Temp: 35.9 ??C Vitals: 05/21/21944 SpO2: 97% Patient Location: PACU Level of Consciousness: awake, alert and oriented Pain Management: adequate analgesia Airway Patency: patent Respiratory Status: spontaneous ventilation, unassisted and nonlabored ventilation Cardiovascular Status: hemodynamically stable Post-Op Nausea: none Postoperative Hydration: euvolemic Comments: Patient evaluated prior to discharge from PACU. No known anesthesia related complications noted. UTER NETWORK SPECIALIST * Anesthesia Preprocedure Evaluation - Aviva Diamond MD - 05/21/2021 7:47 AM CST Anesthesia ROS/MED History Reviewed: Patient summary , ECG, Family history anesthesia, Anesthesia history , Medications , Labs , Images/Studies , Unchecked boxes are not applicable Pre-Anesthetic State: alert, awake and responds appropriately history of anesthetic complications, (PONV) Pulmonary (+) sleep apnea, (CPAP) Cardiovascular Exercise tolerance:good (+) hypertension, Valvular problems/Murmurs, (), (moderate), CAD, arrhythmia, (A-fib)(-) angina ROS comment: ECHO 08/31/20 Atrial Fibrillation; Calcific aortic valve disease; Moderate Aortic Stenosis; ??LA is markedly dilated. Calcified mitral annulus; ??Small LV cavity size with normal to hyperdynamic LV systolic function and EF 66 %. ??Mild Tricuspid Regurgitation with upper-normal estimated Pulmonary Artery Systolic Pressure. ??As compared to previous study (08/18/2019 ), there are no appreciable changes. Neuro/Psych (+) depression(-) no seizures, no CVA, no headaches GI/Hepatic/Renal (+) renal disease, (Renal Calculi)(-) GERD, liver disease Endo/Other (+) diabetes mellitus, (Using Oral hypoglycemic), hypothyroidism GENERAL COMMENTS Past Surgical History: 2009: CARDIOVERSION,ANESTHESIA COLONOSCOPY 1991: HYSTERECTOMY 05/2019: JOINT REPLACEMENT WRIST FRACTURE SURGERY; Left Comment: ORIF Past Medical History: Aortic stenosis, moderate Atrial fibrillation ([facility]) Cardiomyopathy ([facility]) 05/2019: Compound fracture Comment: developed DVT when crushed knee, distracted while going down back steps and missed bottom 2 steps. compound fracture Coronary artery disease Depression Diabetes mellitus ([facility]) 05/2019: DVT (deep vein thrombosis) in Comment: developed DVT when crushed knee, distracted while going down back steps and missed bottom 2 steps. compound fracture Feeling grief Comment: several recent deaths: son 05/05/21 from Covid-19 pneumonia. [facility] then airlifted to a hospital in [place], [place] for 2 weeks. step son in 2020, then in September 2020, and a good friend of hers March 2021 Heart failure ([facility]) Hypertension Hypothyroidism AYAD on CPAP 05/2019: PE (pulmonary thromboembolism) ([facility]) Comment: developed DVT when crushed knee, distracted while going down back steps and missed bottom 2 steps. compound fracture Physical Evaluation Airway Mallampati: III TM Distance: >3 FB Neck ROM: normal Dental Pulmonary Pulmonary exam normal Breath sounds clear to auscultation Cardiovascular Rhythm: irregular Rate: normal Cardiovascular exam normal Other findings: Blood pressure 126/87, pulse 66, temperature 36.5 ??C, temperature source Temporal,resp. rate 18, height 5' 2 (1.575 m), weight 71 kg (156 lb 8.4 oz), last menstrual period 05/13/1991, SpO2 97 %. No results for input(s): WBC, RBC, HGB, HCT, PLT, NA, K, CL, CO2, AGAP, BUN, CR, BUNCREATININ, GFRNON, GFR, GLU, CA in the last 72 hours. Anesthesia Plan ASA 3 Intravenous Induction Anesthesia type: general Plan for Airway: LMA Plan for Post-op Pain Plan: as per surgeon and IV analgesics Discussed potential risks of General Anesthesia including but not limited to corneal abrasion, visual impairment or visual loss, mouth injury, dental damage, sore throat, hoarseness, esophageal injury, awareness under anesthesia, nerve injury due to positioning, aspiration, pneumonia, stroke, cardiac event, adverse drug reactions and . Informed Consent Anesthetic plan and risks discussed with patient of whom consent was obtained. . UTER NETWORK SPECIALIST UTER NETWORK SPECIALIST documented in this encounter Plan of Treatment Not on file documented as of this encounter Visit Diagnoses Not on filedocumented in this encounter Administered Medications Inactive Administered Medications - up to 3 most recent administrations Medication Order MAR Action Action Date Dose Rate Site ceFAZolin (ANCEF) 2 g in NS 100 mL IVPB 2 g, Intravenous, at 200 mL/hr, call out operator to O.R., 1 dose, First dose on Thu05/21/21 at 0700, Pre-OpIndications:Preop examination,Calcium kidney stone Given 05/21/2021 8:18 AM COMPUTER NETWORK SPECIALIST 2 g dexamethasone (DECADRON) injection Intravenous, PRN, Starting on Thu05/21/21 at 0827, Until Thu05/21/21 at 0921, Anesthesia Intra-Op Given 05/21/2021 8:27 AM COMPUTER NETWORK SPECIALIST 4 mg ePHEDrine injection Intravenous, PRN, Starting on Thu05/21/21 at 0844, Until Thu05/21/21 at 0921, Anesthesia Intra-Op Given 05/21/2021 8:51 AM COMPUTER NETWORK SPECIALIST 10 mg Given 05/21/2021 8:48 AM COMPUTER NETWORK SPECIALIST 5 mg Given 05/21/2021 8:44 AM COMPUTER NETWORK SPECIALIST 5 mg fentaNYL (SUBLIMAZE) injection Intravenous, PRN, Starting on Thu05/21/21 at 0834, Until Thu05/21/21 at 0921, Anesthesia Intra-Op Given 05/21/2021 8:34 AM COMPUTER NETWORK SPECIALIST 12.5 mcg Given 05/21/2021 8:23 AM COMPUTER NETWORK SPECIALIST 12.5 mcg ketorolac (TORADOL) injection Intravenous, PRN, Starting on Thu05/21/21 at 0902, Until Thu05/21/21 at 0921, Anesthesia Intra-Op Given 05/21/2021 9:02 AM COMPUTER NETWORK SPECIALIST 15 mg lactated ringers infusion Intravenous, Continuous PRN, Starting on Thu05/21/21 at 0718, Until Thu05/21/21 at 0921, Anesthesia Intra-Op New Bag 05/21/2021 9:00 AM COMPUTER NETWORK SPECIALIST 10 mL/hr New Bag 05/21/2021 7:18 AM COMPUTER NETWORK SPECIALIST 10 mL/hr lidocaine (PF) (XYLOCAINE) 2 % injection Intravenous, PRN, Starting on Thu05/21/21 at 0823, Until Thu05/21/21 at 0921, Anesthesia Intra-Op Given 05/21/2021 8:23 AM COMPUTER NETWORK SPECIALIST 50 mg ondansetron (ZOFRAN) injection Intravenous, PRN, Starting on Thu05/21/21 at 0903, Until Thu05/21/21 at 0921, Anesthesia Intra-Op Given 05/21/2021 9:03 AM COMPUTER NETWORK SPECIALIST 4 mg phenylephrine (LAZARO-SYNEPHRINE) injection Intravenous, PRN, Starting on Thu05/21/21 at 0831, Until Thu05/21/21 at 0921, Anesthesia Intra-Op Given 05/21/2021 8:41 AM COMPUTER NETWORK SPECIALIST 100 mcg Given 05/21/2021 8:39 AM COMPUTER NETWORK SPECIALIST 50 mcg Given 05/21/2021 8:36 AM COMPUTER NETWORK SPECIALIST 50 mcg propofol (DIPRIVAN) IV bolus Intravenous, PRN, Starting on Thu05/21/21 at 0823, Until Thu05/21/21 at 0921, Anesthesia Intra-Op Given 05/21/2021 8:23 AM COMPUTER NETWORK SPECIALIST 100 mg documented in this encounter Care Teams Reconnaissance Man Relationship Specialty Start Date End Date Ryann Galdamez PA-C [address] [facility] [address] [place], [place] [id number] PCP - General PHYSICIAN APPLIED MARINE PHYSICS PROFESSOR 05/13/21 Cathleen Walker MD [address] [facility] [address] [place], [place] [id number] INTERNAL MEDICINE 05/13/21 documented as of this encounter
--- OUTSIDE RECORDS SUMMARY | 2024-03-13 01:05 | XMS_ITS | Encounter Summary ---
Author Organization [facility] Address [address] [place] [address]. [place] [address] [place] [address] [address] Care Drive In Teller Name Role Phone Ryann Galdamez PA-C Primary Care Provider +- [phone] Cathleen Walker MD Unavailable [phone] Encounter Details Date Type Department Care Team (Latest Contact Info) Description 05/22/2021 Travel Social History Tobacco Use Types Packs/Day [...] Coronavirus/COVID-19? No / Unsure 05/22/2021 1:58 PM SURVEYOR GEOPHYSICAL PROSPECTING documented as of this encounter Plan of Treatment Not on file documented as of this encounter Visit Diagnoses Not on filedocumented in this encounter Care Teams Drive In Teller Relationship Specialty Start Date End Date Ryann Galdamez PA-C [address] [facility] [address] [place] [address] PCP - General PHYSICIAN FIREWORKS ASSEMBLER 05/13/21 Cathleen Walker MD [address] [address] INTERNAL MEDICINE 05/13/21 documented as of this encounter
--- OUTSIDE RECORDS SUMMARY | 2024-03-13 01:05 | XMS_ITS | Encounter Summary ---
Author Organization [facility] Address [address] [place] [address]. [place], [place] [address] [place] [address] Care Team Providers Care Log Chipper Name Role Phone Ryann Galdamez PA-C Primary Care Provider [phone] Cathleen Walker MD Unavailable [phone] Reason for Visit * Auth/Cert Specialty Diagnoses / Procedures Referred By Indra muñoz Referred To Contact Diagnoses GROSS CALCIUM KIDNEY STONE Procedures RIGHT EXTRA CORPOREAL SHOCK WAVE LITHOTRIPSY CYSTOSCOPY WITH POSSIBLE RIGHT RETROGRADE PYELOGRAM Referral ID Status Reason Start Date Expiration Date Visits Re quested Visits Authorized [id number] 1 1 Encounter Details Date Type Department Care Team (Late st Contact Info) Description 05/21/2021 8:23 AM CATHODE MAKER - 05/21/2021 10:00 AM CATHODE MAKER Surgery [facility] [place] [address] Migel Jara MD [address] [facility] [address] [facility] [place] [address] RIGHT EXTRA CORPOREAL SHOCK WAVE LITHOTRIPSY. FLEXIABLE CYSTOSCOPY Surgery Details Date/Time Status Location OR Service Patient Class Case Class Case Type Trauma Case? 05/21/2021 8:23 AM Posted [facility] OR OR 10 Urology Short Stay/Outpat ient Surgery E - Elective No Panel 1 Procedure LRB Anes Op Region Wound Class Comments RIGHT EXTRA CORPOREAL SHOCK WAVE LITHOTRIPSY. FLEXIABLE CYSTOSCOPY Right General Flank Clean C ontaminated Surgeon Surgeon Role Service Panel Migel aJra MD Primary Urology 1 Case Notes SCHED BY FAX ON 05/10/21 [facility] PHONE ASSESS documented in this encounter Social History Tobacco [...] Coronavirus/COVID-19? No / Unsure 05/21/2021 6:36 AM CATHODE MAKER documented as of this encounter Last Filed Vital Signs Vital Sign Reading Time Taken Comments Blood Pressure 144/87 05/21/2021 10:00 AM CATHODE MAKER Pulse 93 05/21/2021 10:00 AM CATHODE MAKER Temperature 36.1 ??C (97 ??F) 05/21/2021 10:00 AM CATHODE MAKER Respiratory Rate 18 05/21/2021 10:00 AM CATHODE MAKER Oxygen Saturation 94% 05/21/2021 10:00 AM CATHODE MAKER Inhaled Oxygen Concentration - - Weight 71 kg (156 lb 8.4 oz) 05/21/2021 7:00 AM CATHODE MAKER Height 157.5 cm (5' 2 ) 05/21/2021 7:00 AM CATHODE MAKER Body Mass Index 28.63 05/21/2021 7:00 AM CATHODE MAKER documented in this encounter Discharge Instructions * Discharge Instructions* Antoinette Beavers RN - 05/21/2021 10:18 AM CATHODE MAKER No driving on narcotics call the office [...] your doctor to be sent for analysis. ODE MAKER ODE MAKER * Attachments The following attachments cannot be sent through Care Everywhere. * Extracorporeal Shock Wave Lithotripsy Discharge Instructions (Lebanese) * Cystoscopy Discharge Instructions (Lebanese) * General Anesthesia Discharge Instructions (Lebanese) * Hydrocodone and Acetaminophen, ADULT (Lebanese) documented in this encounter Medications at Time [...] how to strain urine. ANTOINETTE BEAVERS RN ODE MAKER documented in this encounter H&P Notes * [...] son 05/05/21 from Covid-19 pneumonia. was at [facility] 3 weeks then airlifted to a hospital in [place], [place] for 2 weeks. step son in [...] during recuperation were discussed with the patient/family/personal in store representative. Reasonable alternatives to the patient's proposed procedure/surgery including benefits, risks, and side effects related to the alternatives and the risks related to not receiving the proposed care were also discussed with the patient/family/personal in store representative. Questions were answered and the patient/family/personal in store representative verbalized understanding and desires to proceed. ODE MAKER documented in this encounter Nursing Notes * Anna Morrell RN - 05/21/2021 8:44 AM CST FLEXIBLE CYSTOSCOPE SN#[id number]. ODE MAKER * Anna Morrell RN - 05/21/2021 8:33 AM CST CALLED PATIENTS SON MINISTERIO TO LET HIM KNOW THAT SURGERY HAS STARTED AND EVERYTHING IS GOING WELL ANDTHAT DR. JARA WILL TALK TO HIM WHEN SURGERY IS FINISHED. UPDATED @ 0834. ODE MAKER documented in this encounter OR Notes * [...] table. The stone was easily visualized on crystallizer operator fluoroscopy. The genitalia were prepped with Betadine. SCD boots were on and functional preoperatively for DVT prophylaxis. She received a preoperative dose of intravenous cefazolin. After appropriate timeout appropriate radiological films were displayed in room the 16 Lithuanian flexible cystoscope was inserted the urinary bladder [...] * Implants: @ORIMPLANT2@ Disposition: PACU Condition: stable ODE MAKER * OR PreOp - CATY Tsai - 05/14/2021 9:01 AM CST Chart reviewed. Per phone interview, patient states she can slowly climb 2 FOS without SOB or CP. Denies recent changes in activity tolerance in past 6 months. Patient sees cytometry technologist Dr. Walker and had recent cardiac testing but no information available in chart. Please request last office note and cardiac testing to review for surgery. Patient will also need cardiac clearance for surgery, already requested by surgeon's office as well. Addendum 05/15- Cardiac records now in [place], reviewed, and hx updated. EKG and Cardiac Cath sent from office in [place] and testing copied. Clearance letter also now in [place]. Patient does not need COVID testing prior to surgery, he/she has completed their COVID vaccine series more than 14 days prior to surgery date. Immunization records in [facility]. Cardiac clearance per Dr. Walker. Recommended [...] There is no significant obstruction of the citizen potawatomi coronary arteries. There is, however, significant tortuosity of the coronary vessels, suggestive of hypertensive heart disease ODE MAKER ODE MAKER * OR PreOp - Jennifer Isaac RN - 05/13/2021 3:24 PM CST States she can slowly climb 2 flights of stairs without chest pain or SOB, crushed knee in 2019 andwas in rehab for a while, still has issues with knee. States no change in exercise tolerance in thelast 6 months. Load Tester: Dr Cathleen Walker. Had cardiac cath August 2020 at [facility], also and echocardiogram.. Hx a fib. Patient says she called Dr Wlaker office (cardiology) to find out if she [...] and will have pre-op labs obtained at [facility] in [place] tomorrow. Uses CPAP for AYAD. . 05/14/21 1240: Faxed request for cardiac clearance, last office note, cardiac testing to Dr Quach' office and called Alise and requested same. ODE MAKER ODE MAKER ODE MAKER ODE MAKER ODE MAKER ODE MAKER ODE MAKER documented in this encounter Plan of Treatment Not on file documented as of this encounter Procedures Procedure Name Priority Date/Time Associated Diagnosis Comments POCT GLUCOSE - GALINDO DOCKED DEVICE Routine 05/21/2021 9:19 AM CATHODE MAKER EXTRACOROPOREAL SHOCK WAVE LITHOTRIPSY UNILATERAL 05/21/2021 8:18 AM CATHODE MAKER GROSS CALCIUM KIDNEY STONE Case Notes SCHED BY FAX ON 05/10/21 [facility] PHONE ASSESS POCT GLUCOSE - GALINDO DOCKED DEVICE Routine 05/21/2021 7:23 AM CATHODE MAKER PARTIAL THROMBOPLASTIN TIME,PTT STAT 05/21/2021 7:20 AM CATHODE MAKER PROTHROMBIN TIME, VENOUS STAT 05/21/2021 7:20 AM CATHODE MAKER Preop examination Calcium kidney stone documented in this encounter Results * POCT glucose (05/21/2021 9:19 AM CATHODE MAKER) [facility] GLUCOSE POC 98 70 - 99 mg/dL 05/21/2021 9:21 AM CATHODE MAKER [facility] 05/21/2021 9:19 AM CATHODE MAKER Migel Jara MD POCT ORDERABLES - DEVICE Final Result Performing Organization Address [facility]/ZIP Co de Phone Number [facility] [address] [place] [address], [place] [phone] * POCT glucose (05/21/2021 7:23 AM CATHODE MAKER) GLUCOSE POC 98 70 - 99 mg/dL 05/21/2021 11:24 AM CATHODE MAKER [facility] 05/21/2021 7:23 AM CATHODE MAKER Migel Jara MD POCT ORDERABLES - DEVICE Final Result Performing Organization Address [facility] Co de Phone Number [facility] [address] [place] [address], [place] [phone] * PTT, PARTIAL THROMBOPLASTIN TIME (05/21/2021 7:20 AM CATHODE MAKER) PTT 30.7 25.1 - 36.5 SEC 05/21/2021 8:11 AM CATHODE MAKER [facility] 05/21/2021 7:20 AM CATHODE MAKER us Migel Jara MD LABORATORY Final Res ult Performing Organization Address City/[facility]/ZIP Co de Phone Number [facility] [address] [place] [address], [place] [phone] * (ABNORMAL) PROTIME/INR, VENOUS (05/21/2021 7:20 AM CATHODE MAKER) PROTIME 13.1(H) 10.2 - 12.9 SEC 05/21/2021 7:57 AM CATHODE MAKER [facility] INR 1.1 05/21/2021 7:57 AM CATHODE MAKER [facility] Comment: Recommended INR Therapeutic Goals: ??2.0-3.0 Routine Therapy ??2.5-3.5 Mechanical Prosthetic Valves (High Risk) 05/21/2021 7:20 AM CATHODE MAKER Migel Jara MD LABORATORY Final Res ult [facility] [address] [place] [address], [place] [phone] documented in this encounter Visit Diagnoses Not on filedocumented in this encounter Administered Medications Inactive Administered Medications - up to 3 most recent administrations Medication Order MAR Action Action Date Dose Rate Site famotidine (PEPCID) tablet 20 mg 20 mg, Oral, Once, 1 dose, On Thu05/21/21 at 0815, On admission, Pre-Op Given 05/21/2021 8:10 AM CATHODE MAKER 20 mg lactated ringers infusion at 10 mL/hr, Intravenous, Continuous, Starting on Thu05/21/21 at 0815, Until Thu05/21/21 at 1351, Infuse at TKO rate, Pre-Op New Bag 05/21/2021 8:10 AM CATHODE MAKER 10 mL/hr documented in this encounter Active and Recently Administered Medications Times are shown in CATHODE MAKER. Scheduled Medication Order 05/19/2021 05/20/2021 05/21/2021 ceFAZolin (ANCEF) 2 g in NS 100 mL IVPB (COMPLETED) 2 g, Intravenous, at 200 mL/hr, call center professional to O.R., 1 dose, First dose on Thu05/21/21 at 0700, Pre-Op 0818 (Given - Provid er: Sneha Pickett CRNA)0828 (Infusion Stop Time - Provider: Sneha Pickett CRNA) famotidine (PEPCID) tablet 20 mg (COMPLETED) 20 mg, Oral, Once, 1 dose, On Thu05/21/21 at 0815, On admission, Pre-Op 0810 (Given - Provid er: Tess Kim, ARMANI) Continuous Medication Order 05/19/2021 05/20/2021 05/21/2021 lactated ringers infusion at 10 mL/hr, Intravenous, Continuous, Starting on Thu05/21/21 at 0815, Until Thu05/21/21 at 1351, Infuse at TKO rate, Pre-Op 0810 (New Bag - Prov ider: Tess Kim, ARMANI) documented in this encounter Care Teams Log Chipper Relationship Specialty Start Date End Date Ryann Galdamez PA-C [address] [facility] [address] [place], [place] [id number] PCP - General PHYSICIAN IN STORE DEMONSTRATOR 05/13/21 Cathleen Walker MD [address] [facility] [address] [place], [place] [id number] INTERNAL MEDICINE 05/13/21 documented as of this encounter
--- OUTSIDE RECORDS SUMMARY | 2024-03-13 01:05 | XMS_ITS | Encounter Summary ---
Author Organization [facility] Address [address] [place] [address]. [place], [place] [address] [place] [address] Care Team Providers Care Change Coordinator Name Role Phone Unavailable Primary Care Provider Unavailabl e Encounter Details Date Type Department Care Team (Late st Contact Info) Description 09/25/2003 Abstract [facility] CONVERSION [address] [place] [address] , Generic Conversion, Social History Tobacco Use [...]
--- OUTSIDE RECORDS SUMMARY | 2024-03-13 01:05 | XMS_ITS | Encounter Summary ---
Author Organization [facility] Address [address] [place] [address]. [place], [place] [address] [place] [address] Care Team Providers Care Pens And Pencils Repairer Name Role Phone Unavailable Primary Care Provider Unavailabl e Encounter Details Date Type Department Care Team (Late st Contact Info) Description 03/14/2003 Abstract [facility] CONVERSION [address] [place] [address] , Generic Conversion, Social History Tobacco Use [...]
--- OUTSIDE RECORDS SUMMARY | 2024-03-13 01:05 | XMS_ITS | Encounter Summary ---
Author Organization [facility] Address [address] [place] [address]. [place], [place] [address] [place] [address] Care Team Providers Care Primary Care Sales Representative Name Role Phone Unavailable Primary Care Provider Unavailabl e Encounter Details Date Type Department Care Team (Late st Contact Info) Description 02/05/2003 Abstract [facility] CONVERSION [address] [place] [address] , Generic Conversion, Social History Tobacco Use [...]
--- OUTSIDE RECORDS SUMMARY | 2024-03-13 01:05 | XMS_ITS | Encounter Summary ---
Author Organization [facility] Address [address] [place] [address]. [place], [place] [address] [place] [address] Care Team Providers Care Title Closer Name Role Phone Unavailable Primary Care Provider Unavailabl e Encounter Details Date Type Department Care Team (Late st Contact Info) Description 06/08/2003 Abstract S[facility] CONVERSION [address] [place] [address] , Generic Conversion, Social History Tobacco Use [...]
--- OUTSIDE RECORDS SUMMARY | 2024-03-13 01:05 | XMS_ITS | Encounter Summary ---
Author Organization [facility] Address [address] [place] [address]. [place], [place] [id number] [place] [id number] Care Team Providers Care Manager Regional Sales Name Role Phone Ryann Galdamez PA-C Primary Care Provider [phone] Cathleen Walker MD Unavailable [phone] Reason for Referral * Imaging (Emergency) - Closed Specialty Diagnoses / Procedures Referred By Indra muñoz Referred To Contact RADIOLOGY Procedures CT ABD+PEL WO CON Sunita Tanner PA [address] [place] [address] Phone: tel: fax: Referral ID Status Reason Start Date Expiration Date Visits Re quested Visits Authorized [id number] Closed 05/22/2021 06/22/2022 1 1 IN TECHNICIAN Reason for Visit * Reason Comments Flank Pain Encounter Details Date Type Department Care Team (Late st Contact Info) Description 05/22/2021 2:20 PM STRAIN TECHNICIAN - 05/22/2021 8:10 PM STRAIN TECHNICIAN Emergency [facility] Emergency Room [place], [place] [id number] Juan Jose Diamond MD [address] [id number] Flank Pain Discharge Disposition: Home or Self Care (Routine [...] Coronavirus/COVID-19? No / Unsure 05/22/2021 1:58 PM STRAIN TECHNICIAN documented as of this encounter Last Filed Vital Signs Vital Sign Reading Time Taken Comments Blood Pressure 142/98 05/22/2021 8:00 PM STRAIN TECHNICIAN Pulse 90 05/22/2021 8:00 PM STRAIN TECHNICIAN Temperature 37.1 ??C (98.7 ??F) 05/22/2021 5:45 PM CS T Respiratory Rate 17 05/22/2021 8:00 PM STRAIN TECHNICIAN Oxygen Saturation 96% 05/22/2021 8:00 PM STRAIN TECHNICIAN Inhaled Oxygen Concentration - - Weight 75.9 kg (167 lb 5.3 oz) 05/22/2021 1:59 P M STRAIN TECHNICIAN Height 157.5 cm (5' 2 ) 05/22/2021 1:59 PM STRAIN TECHNICIAN Body Mass Index 30.6 05/22/2021 1:59 PM STRAIN TECHNICIAN documented in this encounter Discharge Instructions * Attachments The following attachments cannot be sent through Care Everywhere. * Kidney Stones Discharge Instructions (Swiss) documented in this encounter Medications at Time of Discharge acetaminophen 500 MG tablet Take 1,000 mg by mouth every 6 (six) hours as needed for Pain. ALPRAZolam 0.5 MG tablet Take 0.5 mg by mouth 3 (three) times daily as needed for Sleep. apixaban 5 MG tabletIndications:Stephon baileydaniel stone Take 1 tablet (5 mg total) [...] OR) Take 1 tablet by mouth daily. ondansetron 4 MG disintegrating tablet Take 1 tablet (4 mg total) by mouth every 8 (eight) hours as needed for Nausea. 20 tablet 05/22/2021 potassium chloride CR 20 MEQ tablet Take [...] as needed for Sleep. cephALEXin 500 MG capsuleIndications:K zenianey stone Take 1 capsule (500 mg total) by mouth 3 (three) times daily for 3 days. 9 capsule 05/21/2021 2 HYDROcodone-acetamin ophen 5-325 MG tabletIndications:Ac [place] Pain < 7 Day Supply Take 1 tablet by mouth every 6 (six) hours as needed for Pain. Indications: Acute Pain < 7 Day Supply 15 tablet 05/21/2021 2 tamsulosin 0.4 MG Cap Take 1 capsule (0.4 mg total) by mouth daily for 5 days. TAKE DAILY UNTIL STONE PASSES. 5 capsule 05/22/2021 2 documented as of this encounter ED Notes * Juan Jose Diamond MD - 05/22/2021 7:17 PM CST Chief Complaint Chief Complaint Patient presents with ??? Flank Pain History of Present Illness This patient is an 81yo female with PMH HTN, DM, AFib, DVT/PE who presents to the ED for evaluationof flank pain. Yesterday, she underwent lithotripsy (Marek). She did well until ~11am today when she experienced abrupt onset of right flank/CVA pain. She also notes nausea but denies fever/chills, vomiting, hematuria, dysuria. The patient took a percocet ~12:30. She reports that it did ultimately prove effective in relievingher pain. However, she was quite concerned by the intensity of the pain which is what prompted today's visit. Medical History ALLERGIES: Allergies Allergen Reactions ??? Amlodipine Shortness of Breath ??? Prasanth Inhibitors Cough Reaction: COUGH, ??? Citalopram Unknown ??? Lisinopril-Hydrochlorothiazide Nausea Only and Dizziness Dizzy, nauseated MEDICATIONS: Prior to Admission medications Medication Sig Start Date End Date Taking? Authorizing Provider ondansetron 4 MG disintegrating tablet Take 1 tablet (4 mg total) by mouth every 8 (eight) hours asneeded for Nausea. 05/22/21 Yes Juan Jose Diamond MD tamsulosin 0.4 MG Cap Take 1 capsule (0.4 mg total) by mouth daily for 5 days. TAKE DAILY UNTIL STONE PASSES. 05/22/21 05/27/21 Yes Juan Jose Diamond MD acetaminophen 500 MG tablet Take 1,000 mg by mouth every 6 (six) hours as needed for Pain. Doc Abstract ALPRAZolam 0.5 MG tablet Take 0.5 mg by mouth 3 (three) times daily as needed for Sleep. Doc Abstract apixaban 5 MG tablet Take 1 tablet (5 mg total) by mouth 2 (two) times daily. ELIQUIS You may resume eliquis in 5 days 05/21/21 Endy Jara MD Ascorbic Acid (VITAMIN C) 500 MG Cap Take 1 capsule by mouth daily. Doc Abstract carvedilol 25 MG tablet Take 25 mg by mouth 2 (two) times daily. Doc Abstract cephALEXin 500 MG capsule Take 1 capsule (500 mg total) by mouth 3 (three) times daily for 3 days. 05/21/21 05/24/21 Endy Jara MD furosemide 40 MG tablet Take 40 mg by mouth daily. Doc Abstract glipiZIDE XL 10 MG 24 hr tablet Take 10 mg by mouth daily with breakfast. Do not break or crush tablet Doc Abstract HYDROcodone-acetaminophen 5-325 MG tablet Take 1 tablet by mouth every 6 (six) hours as needed for Pain. Indications: Acute Pain < 7 Day Supply 05/21/21 05/25/21 Endy Jara MD levothyroxine 50 MCG tablet Take 50 mcg by mouth every morning. Doc Abstract metFORMIN 500 MG tablet Take 500 mg by mouth 2 (two) times daily with meals. Doc Abstract Multiple Vitamins-Minerals (CENTRUM SILVER OR) Take 1 tablet by mouth daily. Doc Abstract potassium chloride CR 20 MEQ tablet Take 20 mEq by mouth daily. Doc Abstract rosuvastatin 20 MG tablet Take 20 mg by mouth nightly at bedtime. Doc Abstract vitamin D3, cholecalciferol, 1000 UNIT Tab tablet Take 1 tablet by mouth 2 (two) times a day. Doc Abstract zinc gluconate 50 MG Tab Take 1 tablet by mouth daily. Doc Abstract zolpidem 10 MG tablet Take 10 mg by mouth nightly as needed for Sleep. Doc Abstract PAST MEDICAL HISTORY: Past Medical History: Diagnosis Date ??? Aortic [...] son 05/05/21 from Covid-19 pneumonia. was at [facility] 3 weeks then airlifted to a hospital in [place], [place] for 2 weeks. step son in 2020, then in September 2020, and a good friend of hers March 2021 ??? Heart failure (CMS/HCC) ??? Hypertension ??? Hypothyroidism ??? AYAD on CPAP ??? PE (pulmonary thromboembolism) (CMS/HCC) 05/2019 developed DVT when crushed knee, distracted while going down back steps and missed bottom 2 steps. compound fracture PAST SURGICAL HISTORY: Past Surgical History: Procedure Laterality Date ??? CARDIOVERSION,ANESTHESIA 2009 ??? COLONOSCOPY ??? HYSTERECTOMY 1991 ??? JOINT REPLACEMENT 05/2019 ??? WRIST FRACTURE SURGERY Left ORIF FAMILY HISTORY: Family History Problem Relation Name Age of Onset ??? Heart Disease Mother ??? Heart Disease Father ??? Diabetes Father ??? Diabetes Son SOCIAL HISTORY: Social History Tobacco Use ??? Smoking status: Never Smoker ??? Smokeless tobacco: Never Used Substance Use Topics ??? Alcohol use: Not Currently Comment: No alcohol for several years. used to drink a highball once a month ??? Drug use: Never Review of Systems Review of Systems Constitutional: Negative. Respiratory: Negative. Cardiovascular: Negative. Gastrointestinal: Positive for abdominal pain and nausea. Negative for blood in stool, constipation, diarrhea and vomiting. Genitourinary: Positive for flank pain. Negative for dysuria and hematuria. Skin: Negative. Neurological: Negative. All other systems reviewed and are negative. Physical Exam Filed Vitals: 05/22/21 1359 05/22/21 1745 05/22/21 1950 BP: (!) 154/104 (!) 157/94 (!) 153/106 Pulse: 98 84 89 Resp: 16 18 18 Temp: 97.3 ??F (36.3 ??C) 98.7 ??F (37.1 ??C) TempSrc: Temporal Oral SpO2: 100% 99% 97% Weight: 75.9 kg (167 lb 5.3 oz) Height: 5' 2 (1.575 m) Physical Exam Vitals and nursing note reviewed. Constitutional: Appearance: Normal appearance. She is well-developed. HENT: Head: Normocephalic and atraumatic. Nose: Nose normal. Eyes: Pupils: Pupils are equal, round, and reactive to light. Neck: Vascular: No JVD. Trachea: No tracheal deviation. Cardiovascular: Rate and Rhythm: Normal rate and regular rhythm. Heart sounds: Normal heart sounds. Pulmonary: Effort: Pulmonary effort is normal. Breath sounds: Normal breath sounds. Abdominal: General: There is no distension. Palpations: Abdomen is soft. There is no mass. Tenderness: There is abdominal tenderness (Tenderness noted to right CVA and flank.). There is no guarding or rebound. Musculoskeletal: General: Normal range of motion. Cervical back: Normal range of motion and neck supple. Skin: General: Skin is warm and dry. Capillary Refill: Capillary refill takes less than 2 seconds. Neurological: General: No focal deficit present. Mental Status: She is alert and oriented to person, place, and time. Sensory: No sensory deficit. Motor: No weakness. Diagnostic Studies / Procedures ELECTROCARDIOGRAMS: No results found for this visit on 05/22/21. LABORATORY STUDIES: Results for orders placed or performed during the hospital encounter of 05/22/21 CBC W/DIFF AUTOMATED Result Value Ref Range WBC 11.2 (H) 4.5 - 11.0 x10'3/uL RBC 3.64 (L) 4.20 - 5.40 x10'6/uL HGB 9.6 (L) 12.0 - 16.0 G/DL HCT 31.2 (L) 38.0 - 48.0 % MCV 85.7 81.0 - 99.0 FL MCH 26.4 (L) 27.0 - 31.0 PG MCHC 30.8 (L) 32.0 - 36.0 G/DL RDW 16.2 (H) 11.5 - 14.5 % PLT 317 130 - 400 x10'3/uL MPV 9.5 9.3 - 12.2 FL DIFFERENTIAL TYPE AUTOMATED DIFFERENTIAL NEUTROPHILS 79.2 % LYMPHOCYTES 12.3 % MONOCYTES 7.7 % EOSINOPHILS 0.1 % BASOPHILS 0.3 % IMMATURE GRANS 0.4 % ABS. NEUTROPHILS TOTAL 8.87 (H) 1.80 - 7.70 x10'3/uL ABS. LYMPHOCYTES 1.38 1.00 - 4.80 x10'3/uL ABS. MONOCYTES 0.86 0.24 - 0.86 x10'3/uL ABS. EOSINOPHILS 0.01 (L) 0.04 - 0.36 x10'3/uL ABS. BASOPHILS 0.03 0.01 - 0.08 x10'3/uL ABS. IMMATURE GRANULOCYTES 0.05 0.00 - 0.49 x10'3/uL COMPREHENSIVE METABOLIC PANEL Result Value Ref Range GLUCOSE 127 (H) 70 - 99 MG/DL BUN 21 (H) 7 - 18 MG/DL CREATININE S/P/B 0.64 0.55 - 1.02 MG/DL SODIUM 134 (L) 136 - 145 MMOL/L POTASSIUM 3.9 3.5 - 5.1 MMOL/L CHLORIDE S/P/B 103 100 - 108 MMOL/L CO2 23.8 21 - 32 MMOL/L CALCIUM 9.4 8.5 - 10.1 MG/DL BILIRUBIN TOTAL S/P/B 0.4 0.2 - 1.2 MG/DL TOTAL PROTEIN S/P/B 7.3 6.4 - 8.2 G/DL ALBUMIN S/P/B 3.6 3.4 - 5.0 G/DL AST 22 15 - 37 U/L ALT 31 14 - 55 U/L ALKALINE PHOSPHATASE S/P/B 118 50 - 136 U/L ANION GAP 7.2 5 - 15 MMOL/L BUN CREATININE RATIO 32.9 (H) 6 - 26 A/G RATIO 1.0 1.0 - 2.0 RATIO eGFR Non-Afr. Amer. 84 (L) >90 ML/MIN/1.73 M2 eGFR Afr. Amer. >90 >90 ML/MIN/1.73 M2 LIPASE Result Value Ref Range LIPASE 186 73 - 393 UNITS/L URINALYSIS Result Value Ref Range Specimen Type URINE CLEAN CATCH COLOR (U) COLORLESS TRANSPARENCY CLEAR Specific Moran (U) 1.008 1.001 - 1.030 U PH 5.0 5.0 - 9.0 LEUKOCYTE ESTERASE NEGATIVE NEGATIVE NITRITES NEGATIVE NEGATIVE PROTEIN (U) NEGATIVE <30 MG/DL URINE GLUCOSE NORMAL NORMAL MG/DL U KETONES NEGATIVE NEGATIVE MG/DL UROBILINOGEN NORMAL NORMAL MG/DL BILIRUBIN (U) NEGATIVE NEGATIVE MG/DL BLOOD 3+ (A) NEGATIVE CULTURE & SENSITIVITY INDICATED? CULTURE IS NOT INDICATED WBC/HPF 4 <6 /HPF RBC/HPF 90 (H) <6 /HPF SQUAMOUS EPITHELIALS RARE /HPF POCT glucose Result Value Ref Range GLUCOSE POC 97 70 - 99 mg/dL IMAGING STUDIES CT ABD+PEL WO CON Final Result by User, [id number] (05/22 1637) EXAMINATION: CT Abdomen and Pelvis without contrast EXAM DATE/TIME: 05/22/2021 3:40 PM INDICATION: 81-year-old female with right flank pain, patient reports history of the urologic procedure for left renal stone COMPARISON: No existing relevant imaging study available. TECHNIQUE: Computed tomography of the abdomen pelvis performed without contrast} . A dose lowering technique was used for this procedure, which may include, but is not limited to, dose reduction technique, automated exposure control, the use of iterative reconstruction, and ALARA (As Low As Reasonably Achievable) / Image Gently techniques. FINDINGS: Suspected emphysematous changes and streaky linear subsegmental atelectasis at the lung bases. Cardiomegaly with decreased cardiac blood pool attenuation suggesting anemia. Coronary artery, aortic and prominent mitral valvular calcification noted. No pericardial or pleural effusion. Bilateral nephrolithiasis. There is moderate left hydronephroureter with the moderate perinephric stranding and a small amount of fluid. There is periureteral stranding. There is tubular cast-like calcification of the right ureterovesical junction possibly representing an elongated stone measuring approximately 3 x 13 mm (axial image [id number], series 2). There 2 punctate 1-2 mm stone fragments dependently in a slightly dilated portion of the distal right ureter (axial image 114, series 2). There are 4-5 tiny stones within the dilated calyces of the right renal interpolar region and lower pole measuring a few millimeters in size. There may be for tiny nonobstructing stones in the left renal upper pole. Index largest stone measures 4 mm. Slight pelvic caliectasis without hydronephrosis. Left ureter does not appear dilated although the very distal portion is poorly seen and there are too numerous to count calcified pelvic phleboliths about the region of the bladder base.. There are bilateral renal anterior water density lesions, incompletely assessed without contrast measuring 2.8 cm in the right and 2.6 cm in the left statistically most likely representing cysts. Overall limited soft tissue and visceral noncontrast assessment. Nonspecific hepatomegaly. Gallbladder is not clearly identified and may be completely decompressed or absent. Although no right lower quadrant surgical clips identified. Common bile duct is dilated up to 11 mm, which can be physiologic postcholecystectomy state. The noncontrast spleen, pancreas and right adrenals are unremarkable. There is a 2.1 cm left adrenal nodule, which is indeterminate on this noncontrast CT. Small to moderate size suspected sliding hiatal hernia. No bowel obstruction. Moderate colonic stool burden. Sigmoid colon diverticulosis. No convincing acute bowel related finding. No obvious abdominal pelvic adenopathy. No ascites, other fluid collection or free air. Aortoiliac atherosclerotic calcification. No aneurysm. Suspected prior hysterectomy. No pelvic adnexal mass identified. Generalized osteopenia. Multilevel advanced disc and endplate degenerative change in the imaged lower thoracic and lumbar spine. Age indeterminate L1 superior endplate moderately depressed fracture. Mild L2 anterior superior endplate depression, also age indeterminate. Moderate sacral leg joint osteoarthritis. No concerning focal lytic or blastic skeletal lesion identified. IMPRESSION:===== 1. Limited noncontrast assessment. 2. Bilateral nephrolithiasis, with bilateral renal tiny nonobstructing calculi as discussed above. 3. Right moderate hydronephroureter with mild or nephric and periureteral stranding and fluid, with elongated cast-like calcification at the right uterovesical junction which may represent an elongated calculus measuring 3 x 13 mm. Additional 2 punctate stone fragments present dependently in the slightly dilated portion of the distal left ureter just before the ureterovesical junction. 4. No convincing left ureteral calculi identified; there are numerous to count calcified pelvic phleboliths around the bladder base limit assessment of a small segment of the distal left ureter. 5. Nonspecific hepatomegaly. 6. Cardiomegaly and anemia. 7. Bilateral renal hypodense lesions that may represent cysts. 8. Left adrenal indeterminate 2.1 cm nodule. L1 superior endplate moderately depressed and L2 anterior superior endplate mildly depressed age indeterminate fractures. 9. Other nonemergent, incidental, stable and potential chronic findings as discussed in the report body above; recommend comparison with prior imaging to assess stability for some of these findings. Ordered By: SUNITA TANNER Interpreted By: Margie Kelley MD, 05/22/2021 4:21 PM ED Course / Medical Decision Making The patient has a stone fragment at the right UVJ. We will alleviate her pain and nausea which havereturned after the percocet wore off. Following this, we will plan for discharge home with continued PRN percocet and followup with Dr. Jara. In addition, we will provide daily flomax and PRN zofran. Clinical Impression Kidney stone (Primary) Disposition: Discharge Juan Jose Diamond MD 05/22/212004 IN TECHNICIAN * Ori Dolan RN - 05/22/2021 2:04 PM CST Ambulatory to triage with piccoloist right flank pain that started again today. She reports she just had aprocedure with her urologist to break of a kidney stone on left side yesterday and tolerated procedure well. She reports this morning she reported pain was back. Currently on antibiotics for procedure. VSS. ORI DOLAN RN IN TECHNICIAN * RACHID Pan - 05/22/2021 2:01 PM CST [place], [place] EMERGENCY DEPARTMENT ENCOUNTER Medical Screening Examination 05/22/21 2:04 PM Chief Complaint : Flank Pain HPI : Prema Pearce is a 81-year-old female who presents for right flank pain. Had lithotripsydone yesterday for 5mm stone and didn't have immediate complications. Notes worsening pain, and after speaking with Dr. Coughlin, was advised to present for another CT and evaluation. Took [place] prior to arrival. Pain subsiding. Vital Signs: Filed Vitals: 05/22/21 1359 BP: (!) 154/104 Pulse: 98 Resp: 16 Temp: 97.3 ??F (36.3 ??C) TempSrc: Temporal SpO2: 100% Weight: 75.9 kg (167 lb 5.3 oz) Height: 5' 2 (1.575 m) Physical exam: A brief physical exam was completed to facilitate/expedite patient care. Right abdomen mildly tender, right flank non-tender Plan: Necessary labs/imaging/medications ordered to initiate pt care. RACHID Pan 05/22/21 1404 Cosigned by Juan Jose Diamond MD at 05/22/2021 11:47 PM STRAIN TECHNICIAN IN TECHNICIAN IN TECHNICIAN documented in this encounter Plan of Treatment Not on file documented as of this encounter Procedures Procedure Name Priority Date/Time Associated Diagnosis Comments POCT GLUCOSE - GALINDO DOCKED DEVICE Routine 05/22/2021 5:[address] ABD+PEL WO CON STAT 05/22/2021 3:5 0 PM STRAIN TECHNICIAN HC URINALYSIS AUTO W/O MICRO STAT 05/22/2021 2:52 PM STRAIN TECHNICIAN COMPREHENSIVE METABOLIC PANEL STAT 05/22/2021 2:52 PM STRAIN TECHNICIAN CBC W/DIFF AUTOMATED STAT 05/22/2021 2:52 PM STRAIN TECHNICIAN LIPASE STAT 05/22/2021 2:52 PM STRAIN TECHNICIAN documented in this encounter Results * POCT glucose (05/22/2021 5:46 PM STRAIN TECHNICIAN) GLUCOSE POC 97 70 - 99 mg/dL 05/22/2021 5:49 PM STRAIN TECHNICIAN [facility] 05/22/2021 5:46 PM STRAIN TECHNICIAN us Attending Physician Emergency MD POCT ORDERABLES - DEVICE Final Result [facility] [address] [place] [address], [place] [phone] * CT ABD+PEL WO CON (05/22/2021 3:50 PM STRAIN TECHNICIAN) Anatomical Region Laterality Modality Abdomen Computed Tomogra phy 05/22/2021 4:21 PM STRAIN TECHNICIAN Impressions 05/22/2021 4:37 PM STRAIN TECHNICIAN IMPRESSION:===== 1. Limited noncontrast assessment. 2. Bilateral nephrolithiasis, with bilateral renal tiny nonobstructing calculi as discussed above. 3. Right moderate hydronephroureter with mild or nephric and periureteral stranding and fluid, with elongated cast-like calcification at the right uterovesical junction which may represent an elongated calculus measuring 3 x 13 mm. Additional 2 punctate stone fragments present dependently in the slightly dilated portion of the distal left ureter just before the ureterovesical junction. 4. No convincing left ureteral calculi identified; there are numerous to count calcified pelvic phleboliths around the bladder base limit assessment of a small segment of the distal left ureter. 5. Nonspecific hepatomegaly. 6. Cardiomegaly and anemia. 7. Bilateral renal hypodense lesions that may represent cysts. 8. Left adrenal indeterminate 2.1 cm nodule. L1 superior endplate moderately depressed and L2 anterior superior endplate mildly depressed age indeterminate fractures. 9. Other nonemergent, incidental, stable and potential chronic findings as discussed in the report body above; recommend comparison with prior imaging to assess stability for some of these findings. Ordered By: SUNITA TANNER Interpreted By: Margie Kelley MD, 05/22/2021 4:21 PM Narrative 05/22/2021 4:37 PM STRAIN TECHNICIAN EXAMINATION: CT Abdomen and Pelvis without contrast EXAM DATE/TIME: 05/22/2021 3:40 PM INDICATION: ??81-year-old female with right flank pain, patient reports history of the urologic procedure for left renal stone ?? COMPARISON: No existing relevant imaging study available. TECHNIQUE: Computed tomography of the abdomen pelvis performed without contrast} . A dose lowering technique was used for this procedure, which may include, but is not limited to, dose reduction technique, automated exposure control, the use of iterative reconstruction, and ALARA (As Low As Reasonably Achievable) / Image Gently techniques. FINDINGS: Suspected emphysematous changes and streaky linear subsegmental atelectasis at the lung bases. Cardiomegaly with decreased cardiac blood pool attenuation suggesting anemia. Coronary artery, aortic and prominent mitral valvular calcification noted. No pericardial or pleural effusion. Bilateral nephrolithiasis. There is moderate left hydronephroureter with the moderate perinephric stranding and a small amount of fluid. There is periureteral stranding. There is tubular cast-like calcification of the right ureterovesical junction possibly representing an elongated stone measuring approximately 3 x 13 mm (axial image [id number], series 2). There 2 punctate 1-2 mm stone fragments dependently in a slightly dilated portion of the distal right ureter (axial image 114, series 2). There are 4-5 tiny stones within the dilated calyces of the right renal interpolar region and lower pole measuring a few millimeters in size. There may be for tiny nonobstructing stones in the left renal upper pole. Index largest stone measures 4 mm. Slight pelvic caliectasis without hydronephrosis. Left ureter does not appear dilated although the very distal portion is poorly seen and there are too numerous to count calcified pelvic phleboliths about the region of the bladder base.. There are bilateral renal anterior water density lesions, incompletely assessed without contrast measuring 2.8 cm in the right and 2.6 cm in the left statistically most likely representing cysts. Overall limited soft tissue and visceral noncontrast assessment. Nonspecific hepatomegaly. Gallbladder is not clearly identified and may be completely decompressed or absent. Although no right lower quadrant surgical clips identified. Common bile duct is dilated up to 11 mm, which can be physiologic postcholecystectomy state. The noncontrast spleen, pancreas and right adrenals are unremarkable. There is a 2.1 cm left adrenal nodule, which is indeterminate on this noncontrast CT. Small to moderate size suspected sliding hiatal hernia. No bowel obstruction. Moderate colonic stool burden. Sigmoid colon diverticulosis. No convincing acute bowel related finding. No obvious abdominal pelvic adenopathy. No ascites, other fluid collection or free air. Aortoiliac atherosclerotic calcification. No aneurysm. Suspected prior hysterectomy. No pelvic adnexal mass identified. Generalized osteopenia. Multilevel advanced disc and endplate degenerative change in the imaged lower thoracic and lumbar spine. Age indeterminate L1 superior endplate moderately depressed fracture. Mild L2 anterior superior endplate depression, also age indeterminate. Moderate sacral leg joint osteoarthritis. No concerning focal lytic or blastic skeletal lesion identified. Procedure Note Margie Kelley MD - 05/22/2021 EXAMINATION: CT Abdomen and Pelvis without contrast EXAM DATE/TIME: 05/22/2021 3:40 PM INDICATION: 81-year-old female with right flank pain, patient reportshistory of the urologic procedure for left renal stone COMPARISON: No existing relevant imaging study available. TECHNIQUE: Computed tomography of the abdomen pelvis performed withoutcontrast} . A dose lowering technique was used for this procedure, whichmay include, but is not limited to, dose reduction technique, automatedexposure control, the use of iterative reconstruction, and ALARA (As LowAs Reasonably Achievable) / Image Gently techniques. FINDINGS: Suspected emphysematous changes and streaky linear subsegmentalatelectasis at the lung bases. Cardiomegaly with decreased cardiac blood pool attenuation suggestinganemia. Coronary artery, aortic and prominent mitral valvularcalcification noted. No pericardial or pleural effusion. Bilateral nephrolithiasis. There is moderate left hydronephroureter withthe moderate perinephric stranding and a small amount of fluid. There isperiureteral stranding. There is tubular cast-like calcification of theright ureterovesical junction possibly representing an elongated stonemeasuring approximately 3 x 13 mm (axial image [id number], series 2). There 2punctate 1-2 mm stone fragments dependently in a slightly dilated portionof the distal right ureter (axial image 114, series 2). There are 4-5 tinystones within the dilated calyces of the right renal interpolar region andlower pole measuring a few millimeters in size. There may be for tiny nonobstructing stones in the left renal upper pole.Index largest stone measures 4 mm. Slight pelvic caliectasis withouthydronephrosis. Left ureter does not appear dilated although the verydistal portion is poorly seen and there are too numerous to countcalcified pelvic phleboliths about the region of the bladder base.. There are bilateral renal anterior water density lesions, incompletelyassessed without contrast measuring 2.8 cm in the right and 2.6 cm in theleft statistically most likely representing cysts. Overall limited soft tissue and visceral noncontrast assessment. Nonspecific hepatomegaly. Gallbladder is not clearly identified and may becompletely decompressed or absent. Although no right lower quadrantsurgical clips identified. Common bile duct is dilated up to 11 mm, whichcan be physiologic postcholecystectomy state. The noncontrast spleen, pancreas and right adrenals are unremarkable. There is a 2.1 cm left adrenal nodule, which is indeterminate on thisnoncontrast CT. Small to moderate size suspected sliding hiatal hernia. No bowelobstruction. Moderate colonic stool burden. Sigmoid colon diverticulosis.No convincing acute bowel related finding. No obvious abdominal pelvic adenopathy. No ascites, other fluid collectionor free air. Aortoiliac atherosclerotic calcification. No aneurysm. Suspected prior hysterectomy. No pelvic adnexal mass identified. Generalized osteopenia. Multilevel advanced disc and endplate degenerativechange in the imaged lower thoracic and lumbar spine. Age indeterminate [id number] endplate moderately depressed fracture. Mild L2 anterior superiorendplate depression, also age indeterminate. Moderate sacral leg joint osteoarthritis. No concerning focal lytic or blastic skeletal lesion identified. IMPRESSION:===== 1. Limited noncontrast assessment. 2. Bilateral nephrolithiasis, with bilateral renal tiny nonobstructingcalculi as discussed above. 3. Right moderate hydronephroureter with mild or nephric and periureteralstranding and fluid, with elongated cast-like calcification at the rightuterovesical junction which may represent an elongated calculus measuring3 x 13 mm. Additional 2 punctate stone fragments present dependently inthe slightly dilated portion of the distal left ureter just before theureterovesical junction. 4. No convincing left ureteral calculi identified; there are numerous tocount calcified pelvic phleboliths around the bladder base limitassessment of a small segment of the distal left ureter. 5. Nonspecific hepatomegaly. 6. Cardiomegaly and anemia. 7. Bilateral renal hypodense lesions that may represent cysts. 8. Left adrenal indeterminate 2.1 cm nodule. L1 superior endplatemoderately depressed and L2 anterior superior endplate mildly depressedage indeterminate fractures. 9. Other nonemergent, incidental, stable and potential chronic findings asdiscussed in the report body above; recommend comparison with priorimaging to assess stability for some of these findings. Ordered By: SUNITA TANNER Interpreted By: Margie Kelley MD, 05/22/2021 4:21 PM us Sunita Tanner [place] Final Result * (ABNORMAL) URINALYSIS (05/22/2021 2:52 PM STRAIN TECHNICIAN) SPECIMEN TYPE URINE CLEAN CATCH 05/22/2021 2:53 PM STRAIN TECHNICIAN [facility] COLOR (U) COLORLESS 05/22/2021 3:53 PM [facility] TRANSPARENCY CLEAR 05/22/2021 3:53 PM STRAIN TECHNICIAN [facility] SPECIFIC GRAVITY (U) 1.008 1.001 - 1.030 05/22/2021 3:53 PM STRAIN TECHNICIAN [facility] U PH 5.0 5.0 - 9.0 05/22/2021 3:53 PM [facility] LEUKOCYTES (U) NEGATIVE NEGATIVE 05/22/2021 3:53 PM [facility] NITRITES NEGATIVE NEGATIVE 05/22/2021 3:53 PM STRAIN TECHNICIAN [facility] PROTEIN (U) NEGATIVE <30 MG/DL 05/22/2021 3:53 PM STRAIN TECHNICIAN [facility] URINE GLUCOSE NORMAL NORMAL MG/DL 05/22/2021 3:53 PM STRAIN TECHNICIAN [facility] KETONES MG/DL (U) NEGATIVE NEGATIVE MG/DL 05/22/2021 3:53 PM STRAIN TECHNICIAN [facility] UROBILINOGEN NORMAL NORMAL MG/DL 05/22/2021 3:53 PM STRAIN TECHNICIAN [facility] BILIRUBIN (U) NEGATIVE NEGATIVE MG/DL 05/22/2021 3:53 PM STRAIN TECHNICIAN [facility] BLOOD (U) 3+(A) NEGATIVE 05/22/2021 3:53 PM STRAIN TECHNICIAN [facility] CULTURE & SENSITIVITY INDICATED? CULTURE IS NOT INDICATED 05/22/2021 3:53 PM STRAIN TECHNICIAN [facility] WBC/HPF 4 <6 /HPF 05/22/2021 3:53 PM STRAIN TECHNICIAN [facility] RBC/HPF 90(H) <6 /HPF 05/22/2021 3:53 PM STRAIN TECHNICIAN [facility] SQUAMOUS EPITHELIALS RARE /HPF 05/22/2021 3:53 PM STRAIN TECHNICIAN [facility] URINE SPECIMEN OBTAINED BY CLEAN CATCH PROCEDURE / Unknown 05/22/2021 2:52 PM STRAIN TECHNICIAN us Sunita RASHID URINE ORDERABLES Final Result [facility] [address] [place] [address], * LIPASE (05/22/2021 2:52 PM STRAIN TECHNICIAN) LIPASE 186 73 - 393 UNITS/L 05/22/2021 3:32 PM STRAIN TECHNICIAN [facility] 05/22/2021 2:52 PM STRAIN TECHNICIAN Sunita RASHID LABORATORY Final Result [facility] [address] [place] [address], * (ABNORMAL) COMPREHENSIVE METABOLIC PANEL (05/22/2021 2:52 PM STRAIN TECHNICIAN) Pathologist [facility] GLUCOSE 127(H) 70 - 99 MG/DL 05/22/2021 3:32 PM STRAIN TECHNICIAN [facility] BUN 21(H) 7 - 18 MG/DL 05/22/2021 3:32 PM STRAIN TECHNICIAN [facility] CREATININE S/P/B 0.64 0.55 - 1.02 MG/DL 05/22/2021 3:32 PM STRAIN TECHNICIAN [facility] SODIUM S/P/B 134(L) 136 - 145 MMOL/L 05/22/2021 3:32 PM STRAIN TECHNICIAN [facility] POTASSIUM S/P/B 3.9 3.5 - 5.1 MMOL/L 05/22/2021 3:32 PM [facility] CHLORIDE S/P/B 103 100 - 108 MMOL/L 05/22/2021 3:32 PM STRAIN TECHNICIAN [facility] CO2 23.8 21 - 32 MMOL/L 05/22/2021 3:32 PM STRAIN TECHNICIAN [facility] CALCIUM S/P/B 9.4 8.5 - 10.1 MG/DL 05/22/2021 3:32 PM [facility] BILIRUBIN TOTAL S/P/B 0.4 0.2 - 1.2 MG/DL 05/22/2021 3:32 PM STRAIN TECHNICIAN [facility] Comment: THIS ASSAY IS NOT RECOMMENDED FOR PATIENTS UNDERGOING TREATMENT WITH ELTROMBOPAG DUE TO THE POTENTIAL FOR FALSELY ELEVATED RESULTS. TOTAL PROTEIN S/P/B 7.3 6.4 - 8.2 G/DL 05/22/2021 3:32 PM [facility] ALBUMIN S/P/B 3.6 3.4 - 5.0 G/DL 05/22/2021 3:32 PM STRAIN TECHNICIAN [facility] AST 22 15 - 37 U/L 05/22/2021 3:32 PM STRAIN TECHNICIAN [facility] ALT 31 14 - 55 U/L 05/22/2021 3:32 PM [facility] ALKALINE PHOSPHATASE S/P/B 118 50 - 136 U/L 05/22/2021 3:32 PM [facility] ANION GAP 7.2 5 - 15 MMOL/L 05/22/2021 3:32 PM [facility] BUN CREATININE RATIO 32.9(H) 6 - 26 05/22/2021 3:32 PM [facility] A/G RATIO 1.0 1.0 - 2.0 RATIO 05/22/2021 3:32 PM [facility] EGFR NON-AFR. AMER. 84(L) >90 ML/MIN/1.7 3 M2 05/22/2021 3:32 PM [facility] EGFR AFR. AMER. >90 >90 ML/MIN/1.7 3 M2 05/22/2021 3:32 PM [facility] Comment: NOTE: eGFR is not calculated for patients <18 years of age. This is an estimated GFR (CKD EPI) and should not be used for calculating drug doses. 05/22/2021 2:52 PM STRAIN TECHNICIAN us Sunita RASHID LABORATORY Final Result [facility] [address] [place] [address], [place] [phone] * (ABNORMAL) CBC W/DIFF AUTOMATED (05/22/2021 2:52 PM STRAIN TECHNICIAN) [facility] WBC 11.2(H) 4.5 - 11.0 x10'3/uL 05/22/2021 3:09 PM [facility] RBC 3.64(L) 4.20 - 5.40 x10'6/uL 05/22/2021 3:09 PM [facility] HGB 9.6(L) 12.0 - 16.0 G/DL 05/22/2021 3:09 PM [facility] HCT 31.2(L) 38.0 - 48.0 % 05/22/2021 3:09 PM [facility] MCV 85.7 81.0 - 99.0 FL 05/22/2021 3:09 PM [facility] MCH 26.4(L) 27.0 - 31.0 PG 05/22/2021 3:09 PM [facility] MCHC 30.8(L) 32.0 - 36.0 G/DL 05/22/2021 3:09 PM [facility] RDW 16.2(H) 11.5 - 14.5 % 05/22/2021 3:09 PM [facility] PLT 317 130 - 400 x10'3/uL 05/22/2021 3:09 PM [facility] MPV 9.5 9.3 - 12.2 FL 05/22/2021 3:09 PM [facility] DIFFERENTIAL TYPE AUTOMATED DIFFERENTIAL 05/22/2021 3:09 PM [facility] NEUTROPHILS % 79.2 % 05/22/2021 3:09 PM STRAIN TECHNICIAN [facility] LYMPHOCYTES % 12.3 % 05/22/2021 3:09 PM STRAIN TECHNICIAN [facility] MONOCYTES % 7.7 % 05/22/2021 3:09 PM [facility] EOSINOPHILS 0.1 % 05/22/2021 3:09 PM STRAIN TECHNICIAN [facility] BASOPHILS 0.3 % 05/22/2021 3:09 PM STRAIN TECHNICIAN [facility] IMMATURE GRANS % 0.4 % 05/23/19 3:09 PM STRAIN TECHNICIAN [facility] ABS. NEUTROPHILS TOTAL 8.87(H) 1.80 - 7.70 x10'3/uL 05/22/2021 3:09 PM STRAIN TECHNICIAN [facility] ABS. LYMPHOCYTES 1.38 1.00 - 4.80 x10'3/uL 05/22/2021 3:09 PM STRAIN TECHNICIAN [facility] ABS. MONOCYTES 0.86 0.24 - 0.86 x10'3/uL 05/22/2021 3:09 PM STRAIN TECHNICIAN [facility] ABS. EOSINOPHILS 0.01(L) 0.04 - 0.36 x10'3/uL 05/22/2021 3:09 PM STRAIN TECHNICIAN [facility] ABS. BASOPHILS 0.03 0.01 - 0.08 x10'3/uL 05/22/2021 3:09 PM STRAIN TECHNICIAN [facility] ABS. IMMATURE GRANULOCYTES 0.05 0.00 - 0.49 x10'3/uL 05/22/2021 3:09 PM [facility] 05/22/2021 2:52 PM STRAIN TECHNICIAN us Sunita RASHID LABORATORY Final Result [facility] [address] [place] [address], documented in this encounter Visit Diagnoses Diagnosis Kidney stone- Primary Calculus of kidney documented in this encounter Administered Medications Inactive Administered Medications - up to 3 most recent administrations Medication Order MAR Action Action Date Dose Rate Site acetaminophen (TYLENOL) tablet 650 mg 650 mg, Oral, Once, 1 dose, On Thu05/22/21 at 1900, Maximum dose of acetaminophen is 4000 mg from all sources in 24 hours. Given 05/22/2021 6:57 PM STRAIN TECHNICIAN 650 mg morphine injection 4 mg 4 mg, Intravenous, Once, 1 dose, On Thu05/22/21 at 1930 Given 05/22/2021 7:59 PM STRAIN TECHNICIAN 4 mg ondansetron (ZOFRAN) injection 4 mg 4 mg, Intravenous, Once, 1 dose, On Thu05/22/21 at 1415, IV push over 2-5 minutes. Given 05/22/2021 3:10 PM STRAIN TECHNICIAN 4 mg ondansetron (ZOFRAN) injection 4 mg 4 mg, Intravenous, Once, 1 dose, On Thu05/22/21 at 1930, IV push over 2-5 minutes. Given 05/22/2021 7:57 PM STRAIN TECHNICIAN 4 mg sodium chloride 0.9% bolus infusion SOLN 1,000 mL 1,000 mL, Intravenous, Administer over 15 Minutes, Once, 1 dose, On Thu05/22/21 at 1415 New Bag 05/22/2021 3:10 PM STRAIN TECHNICIAN 1,000 mLs 999 mL/hr tamsulosin (FLOMAX) capsule 0.4 mg 0.4 mg, Oral, Once, 1 dose, On Thu05/22/21 at 1930 Given 05/22/2021 7:58 PM STRAIN TECHNICIAN 0.4 mg documented in this encounter Active and Recently Administered Medications Times are shown in STRAIN TECHNICIAN. Scheduled Medication Order 05/20/2021 05/21/2021 05/22/2021 acetaminophen (TYLENOL) tablet 650 mg (COMPLETED) 650 mg, Oral, Once, 1 dose, On Thu05/22/21 at 1900, Maximum dose of acetaminophen is 4000 mg from all sources in 24 hours. 1856 (Given - Provid er: Nadiya Montoya RN) morphine injection 4 mg (COMPLETED) 4 mg, Intravenous, Once, 1 dose, On Thu05/22/21 at 1930 195 (Given - Provid er: Romina Conde RN) ondansetron (ZOFRAN) injection 4 mg (COMPLETED) 4 mg, Intravenous, Once, 1 dose, On Thu05/22/21 at 1415, IV push over 2-5 minutes. 151 (Given - Provid er: Aziza Liu RN) ondansetron (ZOFRAN) injection 4 mg (COMPLETED) 4 mg, Intravenous, Once, 1 dose, On Thu05/22/21 at 1930, IV push over 2-5 minutes. 1956 (Given - Provid er: Romina Conde RN) sodium chloride 0.9% bolus infusion SOLN 1,000 mL (COMPLETED) 1,000 mL, Intravenous, Administer over 15 Minutes, Once, 1 dose, On Thu05/22/21 at 1415 1510 (New Bag - Prov ider: Aziza Liu RN)1632 (Infusion Stop Time - Provider: Melvin Baxter RN) tamsulosin (FLOMAX) capsule 0.4 mg (COMPLETED) 0.4 mg, Oral, Once, 1 dose, On Thu05/22/21 at 1930 195 (Given - Provid er: Romina Conde RN) documented in this encounter Care Teams Manager Regional Sales Relationship Specialty Start Date End Date Ryann Galdamez PA-C [address] [facility] [address] [place] [address] PCP - General PHYSICIAN HEAD OF BUSINESS DEVELOPMENT 05/13/21 Cathleen Walker MD [address] [facility] [address] [place] [address] INTERNAL MEDICINE 05/13/21 documented as of this encounter
--- OUTSIDE RECORDS SUMMARY | 2024-03-13 01:05 | XMS_ITS | Encounter Summary ---
Author Organization [facility] Address [address] [place] [address]. [place], [place] [address] [place] [address] Care Team Providers Care Insurance Salesman Name Role Phone Unavailable Primary Care Provider Unavailabl e Encounter Details Date Type Department Care Team (Late st Contact Info) Description 06/30/2003 Abstract [facility]JB CONVERSION [address] [place] [address] , Generic Conversion, Social History Tobacco Use [...]
--- OUTSIDE RECORDS SUMMARY | 2024-03-13 01:05 | XMS_ITS | Encounter Summary ---
Author Organization [facility] Address [address] [place] [address]. [place], [place] [address] [place] [address] Care Team Providers Care Recruiting Scheduler Name Role Phone Ryann Galdamez PA-C Primary Care Provider [phone] Cathleen Walker MD Unavailable [phone] Encounter Details Date Type Department Care Team (Late st Contact Info) Description 05/14/2021 11:25 AM SALES APPLICATIONS ENGINEER - 05/14/2021 11:59 PM SALES APPLICATIONS ENGINEER Hospital Encounter [facility] [address] [place] [address] Endy Jara MD [address] [place] [address] [place] [address] Discharge Disposition: Home or Self Care (Routine [...] to have Coronavirus/COVID-19? Yes 05/13/2021 3:44 PM SALES APPLICATIONS ENGINEER documented as of this encounter Medications at Time of Discharge [...] by mouth nightly as needed for Sleep. apixaban 5 MG tablet Take 5 mg by mouth 2 (two) times daily. ELIQUIS 05/21/2021 cephALEXin 500 MG capsuleIndication s:Kidney stone Take 1 capsule (500 mg total) by mouth 3 (three) times daily for 3 days. 9 capsule 05/21/2021 05/24/2021 cephALEXin 500 MG capsule Take 500 mg by mouth 3 (three) times daily. 05/08/2021 05/21/2021 HYDROcodone-aceta minophen 5-325 MG tabletIndications :Acute Pain < 7 Day Supply Take 1 tablet by mouth every 6 (six) hours as needed for Pain. Indications: Acute Pain < 7 Day Supply 15 tablet 05/21/2021 05/25/2021 documented as of this encounter Plan of Treatment Not on file documented as of this encounter Procedures Procedure Name Priority Date/Time Associated Diagnosis Comments URINALYSIS WI REFLEX TO CULTURE STAT 05/14/2021 11:34 AM SALES APPLICATIONS ENGINEER Preop examination Calcium kidney stone PARTIAL THROMBOPLASTIN TIME,PTT STAT 05/14/2021 11:34 AM SALES APPLICATIONS ENGINEER Preop examination Calcium kidney stone PROTHROMBIN TIME, VENOUS STAT 05/14/2021 11:34 AM SALES APPLICATIONS ENGINEER Preop examination Calcium kidney stone BASIC METABOLIC PANEL STAT 05/14/2021 11:34 AM SALES APPLICATIONS ENGINEER Preop examination Calcium kidney stone CBC W/DIFF AUTOMATED STAT 05/14/2021 11:34 AM SALES APPLICATIONS ENGINEER Preop examination Calcium kidney stone documented in this encounter Results * (ABNORMAL) URINALYSIS WI REFLEX TO CULTURE (05/14/2021 11:34 AM SALES APPLICATIONS ENGINEER) COLOR (U) YELLOW 05/14/2021 12:02 PM [facility] TRANSPARENCY CLEAR 05/14/2021 12:02 PM [facility] SPECIFIC GRAVITY (U) 1.010 1.000 - 1.030 05/14/2021 12:02 PM [facility] U PH 6.0 5.0 - 9.0 05/14/2021 12:02 PM [facility] LEUKOCYTES (U) TRACE(A) NEGATIVE 05/14/2021 12:02 PM [facility] NITRITES NEGATIVE NEGATIVE 05/14/2021 12:02 PM [facility] PROTEIN (U) NEGATIVE NEGATIVE 05/14/2021 12:02 PM [facility] URINE GLUCOSE NEGATIVE NEGATIVE 05/14/2021 12:02 PM [facility] KETONES MG/DL (U) NEGATIVE NEGATIVE 05/14/2021 12:02 PM SALES APPLICATIONS ENGINEER [facility] BILIRUBIN (U) NEGATIVE NEGATIVE 05/14/2021 12:02 PM [facility] BLOOD (U) 2+(A) NEGATIVE 05/14/2021 12:02 PM [facility] WBC/HPF 0-5 0 - 5 /HPF 05/14/2021 12:02 PM [facility] RBC/HPF 0-5 0 - 5 /HPF 05/14/2021 12:02 PM [facility] EPI/HPF RARE /HPF 05/14/2021 12:02 PM [facility] CULTURE & SENSITIVITY INDICATED? CULTURE IS NOT INDICATED 05/14/2021 12:02 PM [facility] URINE SPECIMEN OBTAINED BY CLEAN CATCH PROCEDURE / Unknown 05/14/2021 11:34 AM SALES APPLICATIONS ENGINEER Endy Jara MD URINE ORDERABLES Final Re sult Performing Organization Address [facility]/ZIP Co de Phone Number [facility] [address] [place] [address], [place] [phone] * (ABNORMAL) PTT, PARTIAL THROMBOPLASTIN TIME (05/14/2021 11:34 AM SALES APPLICATIONS ENGINEER) PTT 39.4(H) 27.0 - 36.8 SEC 05/14/2021 11:55 AM SALES APPLICATIONS ENGINEER [facility] 05/14/2021 11:3 4 AM SALES APPLICATIONS ENGINEER Endy Jara MD LABORATORY Final Res ult Performing Organization Address City/[facility]/ZIP Co de Phone Number [facility] [address] [place] [address], [place] [phone] * (ABNORMAL) PROTIME/INR, VENOUS (05/14/2021 11:34 AM SALES APPLICATIONS ENGINEER) [facility] PROTIME 18.2(H) 9.1 - 12.4 SEC 05/14/2021 11:55 AM [facility] INR 1.7 05/14/2021 11:55 AM [facility] Comment: Recommend INR ranges for Oral Anticoagulant Therapy: Mechanical Cardiac Values 2.5-3.5 All others indication 2.0-3.0 05/14/2021 11:3 4 AM SALES APPLICATIONS ENGINEER us Endy Jara MD LABORATORY Final Res ult [facility] [address] [place] [address], * (ABNORMAL) BASIC METABOLIC PANEL (05/14/2021 11:34 AM SALES APPLICATIONS ENGINEER) [facility] GLUCOSE 114(H) 70 - 99 MG/DL 05/14/2021 11:55 AM [facility] BUN 18 7 - 18 MG/DL 05/14/2021 11:55 AM [facility] CREATININE S/P/B 0.66 0.55 - 1.02 MG/DL 05/14/2021 11:55 AM [facility] SODIUM S/P/B 139 136 - 145 MMOL/L 05/14/2021 11:55 AM [facility] POTASSIUM S/P/B 4.1 3.5 - 5.1 MMOL/L 05/14/2021 11:55 AM [facility] CHLORIDE S/P/B 103 100 - 108 MMOL/L 05/14/2021 11:55 AM [facility] CO2 27.6 21 - 32 MMOL/L 05/14/2021 11:55 AM [facility] CALCIUM S/P/B 9.2 8.5 - 10.1 MG/DL 05/14/2021 11:55 AM [facility] ANION GAP 8.4 5 - 15 MMOL/L 05/14/2021 11:55 AM [facility] BUN CREATININE RATIO 27.3(H) 6 - 26 05/14/2021 11:55 AM [facility] EGFR NON-AFR. AMER. 83(L) >90 ML/MIN/1.7 3 M2 05/14/2021 11:55 AM [facility] EGFR AFR. AMER. >90 >90 ML/MIN/1.7 3 M2 05/14/2021 11:55 AM [facility] Comment: NOTE: eGFR is not calculated for patients <18 years of age. This is an estimated GFR (CKD EPI) and should not be used for calculating drug doses. 05/14/2021 11:3 4 AM SALES APPLICATIONS ENGINEER us Endy Jara MD LABORATORY Final Res ult [facility] [address] [place] [address], * (ABNORMAL) CBC W/DIFF AUTOMATED (05/14/2021 11:34 AM SALES APPLICATIONS ENGINEER) WBC 7.3 4.4 - 11.0 x10'3/uL 05/14/2021 11:45 AM [facility] RBC 3.81(L) 4.50 - 5.10 x10'6/uL 05/14/2021 11:45 AM [facility] HGB 10.3(L) 12.3 - 15.3 G/DL 05/14/2021 11:45 AM [facility] HCT 33.7(L) 35.9 - 44.6 % 05/14/2021 11:45 AM [facility] MCV 88.5 80.0 - 96.0 FL 05/14/2021 11:45 AM [facility] MCH 27.0 25.3 - 30.9 PG 05/14/2021 11:45 AM [facility] MCHC 30.6(L) 31.0 - 34.1 G/DL 05/14/2021 11:45 AM [facility] RDW 16.8(H) 12.4 - 15.1 % 05/14/2021 11:45 AM [facility] PLT 269 151 - 353 x10'3/uL 05/14/2021 11:45 AM [facility] MPV 9.4(L) 9.6 - 12.0 FL 05/14/2021 11:45 AM [facility] RBC MORPHOLOGY NORMAL 05/14/2021 11:45 AM [facility] PLT MORPH. NORMAL 05/14/2021 11:45 AM [facility] WBC MORPHOLOGY NORMAL 05/14/2021 11:45 AM [facility] LYMPHOCYTES % 26.8 15.8 - 45.0 % 05/14/2021 11:45 AM [facility] NEUTROPHILS % 65.1 42.1 - 71.9 % 05/14/2021 11:45 AM [facility] MONOCYTES % 7.4 5.7 - 12.5 % 05/14/2021 11:45 AM [facility] EOSINOPHILS 0.0 0.0 - 5.6 % 05/14/2021 11:45 AM [facility] BASOPHILS 0.4 0.0 - 1.3 % 05/14/2021 11:45 AM [facility] ABS. NEUTROPHILS 4.78 1.40 - 6.00 x10'3/uL 05/14/2021 11:45 AM SALES APPLICATIONS ENGINEER [facility] IMMATURE GRANS % 0.3 0.0 - 0.5 % 05/14/2021 11:45 AM SALES APPLICATIONS ENGINEER [facility] ABS. LYMPHOCYTES 1.97 0.80 - 4.70 x10'3/uL 05/14/2021 11:45 AM SALES APPLICATIONS ENGINEER [facility] 05/14/2021 11:3 4 AM SALES APPLICATIONS ENGINEER us Endy Jara MD LABORATORY Final Res ult [facility] [address] [place] [address], documented in this encounter Visit Diagnoses Diagnosis Preop examination Preoperative examination, unspecified Calcium kidney stone Calculus of kidney documented in this encounter Care Teams Recruiting Scheduler Relationship Specialty Start Date End Date Ryann Galdamez PA-C [address] [facility] [address] [place] [address] PCP - General PHYSICIAN GREETING CARD WRITER 05/13/21 Cathleen Walker MD [address] [facility] [address] [place], [place] [id number] INTERNAL MEDICINE 05/13/21 documented as of this encounter
--- OUTSIDE RECORDS SUMMARY | 2024-03-13 01:05 | XMS_ITS | Clinical Summary ---
Author Organization [facility] Address [address] [place] [address]. 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 Active carvedilol 25 MG tablet Take 25 mg by mouth 2 (two) times daily. Active furosemide 40 MG tablet Take 40 mg by mouth daily. Active levothyroxine 50 MCG tablet Take 50 mcg by mouth every morning. Active rosuvastatin 20 MG tablet Take 20 mg by mouth nightly at bedtime. Active potassium chloride CR 20 MEQ tablet Take 20 mEq by mouth daily. Active glipiZIDE XL 10 MG 24 hr tablet Take 10 mg by mouth daily with breakfast. Do not break or crush tablet Active ALPRAZolam 0.5 MG tablet Take 0.5 mg by mouth 3 (three) times daily as needed for Sleep. Active zolpidem 10 MG tablet Take 10 mg by mouth nightly as needed for Sleep. Active vitamin D3, cholecalciferol, 1000 UNIT Tab tablet Take 1 tablet by mouth 2 (two) times a day. Active Ascorbic Acid (VITAMIN C) 500 MG Cap Take 1 capsule by mouth daily. Active zinc gluconate 50 MG Tab Take 1 tablet by mouth daily. Active Multiple Vitamins-Minerals (CENTRUM SILVER OR) Take 1 tablet by mouth daily. Active acetaminophen 500 MG tablet Take 1,000 mg by mouth every 6 (six) hours as needed for Pain. Active apixaban 5 MG tabletIndications:K idney stone Take 1 tablet (5 mg total) by mouth 2 (two) times daily. ELIQUIS You may resume eliquis in 5 days 60 tablet 2 Active ondansetron 4 MG disintegrating tablet Take 1 tablet (4 mg total) by mouth every 8 (eight) hours as needed for Nausea. 20 tablet 2 Active Active Problems Problem Noted Date Diagnosed Date Kidney stone 05/21/2021 Immunizations Name Administration Dates Next Due MODERNA COVID-19 (12+) MRNA, LNP-S, PF, 100 MCG/ 0.5 ML DOSE 02/19/2021,05/23/2020,04/25/2020 Family History Medical History Relation Comments Diabetes Father Heart Disease Father Heart Disease Mother Diabetes Son 1 Relation Status Comments Father (Age 79) in his [facility] Mother (Age 75) in her [facility] Son 1 Alive Son 2 of Covid-19 pneumonia 04/2021 Social History Tobacco Use Types Packs/Day Years [...] on file Sexual Orientation Not on file Last Filed Vital Signs Vital Sign Reading Time Taken Comments Blood Pressure 142/98 05/22/2021 8:00 PM [employer] Pulse 90 05/22/2021 8:00 PM [employer] Temperature 37.1 ??C (98.7 ??F) 05/22/2021 5:45 PM CS T Respiratory Rate 17 05/22/2021 8:00 PM [employer] Oxygen Saturation 96% 05/22/2021 8:00 PM [employer] Inhaled Oxygen Concentration - - Weight 75.9 kg (167 lb 5.3 oz) 05/22/2021 1:59 P M [employer] Height 157.5 cm (5' 2 ) 05/22/2021 1:59 PM [employer] Body Mass Index 30.6 05/22/2021 1:59 PM [employer] Plan of Treatment Health Maintenance Due Date Last Done Comments Zoster Vaccines (1 of 2) 1991 Annual Medicare Wellness Visit 2006 Dexa Scan (General) 2006 Pneumococcal Vaccine: 65+ Years (1 of 1 - PCV) 2006 RSV Immunization or 60+ Years (1 - 1-dose 75+ series) 02/07/2016 COVID-19 Vaccine (4 - 2023-2 5 season) 2023 02/19/2021, 05/23/2020, 04/25/2020 Influenza Adult (#1) 2023 01/07/2019, 12/14/2018, 02/23/2018 DTaP, Tdap and Td Vaccines ( 2 - Td or Tdap) 05/20/2029 05/21/2019 Meningococcal Vaccine Aged Out No kamala kyleigh eligible based on patient's age to complete this topic RSV Immunizations Under 20 Months Aged Out No longer eligible b ased on patient's age to complete this topic Insurance [employer] Care Teams Casting Trucker Relationship Specialty Start Date End Date Ryann Galdamez PA-C [address] [facility] [address] [place] [address] PCP - General PHYSICIAN TEST RIDER 05/13/21 Cathleen Walker MD [address] [place] [address] INTERNAL MEDICINE 05/13/21
--- OUTSIDE RECORDS SUMMARY | 2024-03-13 01:05 | XMS_ITS | Encounter Summary ---
Author Organization [facility] Address [address] [place] [address]. 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
--- OUTSIDE RECORDS SUMMARY | 2024-03-13 01:06 | XMS_ITS | Clinical Summary ---
Author Organization [facility] Address [address] [place] [address] Care Team Providers Care Rehab Nurse Name Role Phone Chris Mendes MD Unavailable [phone] Cuba Larsen MD Primary Care Provider [phone] Keli Orozco RN Unavailable Unavailable Tami Mcknight RN Unavailable Unavailab le Allergies Active Allergy Reactions Criticality Noted Date Comments Prasanth Inhibitors Cough Reaction: COUGH, Amlodipine Shortness of breath High 07/21/2019 Citalopram Lisinopril Lisinopril-Hydrochloro thiazide Dizziness,Nausea only Low 05/13/2021 Dizzy, nauseated Medications CALCIUM CARBONATE ORAL Take 600 mg by mouth 2 (two) times a day Active blood-glucose meter miscIndication s:Type 2 diabetes mellitus without complication, without long-term current use of insulin ([facility]) ([facility]) Use daily or as directed for monitoring of diabetes. 1 each 03/19/19 24 Active blood glucose diagnostic (glucose blood) stripIndicatio ns:Type 2 diabetes mellitus without complication, without long-term current use of insulin (CMS/[facility]) ([facility]) One strip daily to check glucose 100 each 1 03/19/19 24 025 Active lancets miscIndication s:Type 2 diabetes mellitus without complication, without long-term current use of insulin (CMS/HCC) (HCC) 1 each by other route daily 100 each 1 03/19/19 24 Active cholecalcifero l (VITAMIN D-3) 2000 unit tablet Take by mouth Active melatonin 5 mg tablet Take 1 tablet (5 mg total) by mouth nightly 08/10/19 24 Active apixaban (Eliquis) 5 mg tablet Take 1 tablet (5 mg total) by mouth 2 (two) times a day 60 tablet 11 08/11/19 24 Active rosuvastatin (CRESTOR) 20 mg tablet TAKE 1 TABLET BY MOUTH EVERY DAY 90 tablet 3 09/02/19 24 Active spironolactone (ALDACTONE) 50 mg tablet Take 1 tablet (50 mg total) by mouth daily 90 tablet 3 11/02/19 24 Active glipiZIDE (GLUCOTROL) 10 mg tablet TAKE 1 TABLET BY MOUTH TWICE A DAY BEFORE BREAKFAST AND LUNCH 180 tablet 1 11/19/19 24 Active acetaminophen 500 mg capsuleIndicat ions:Pain Take 2 capsules (1,000 mg total) by mouth every 6 (six) hours 12/16/19 24 Active lidocaine (ASPERCREME) 4 % adhesive patch,medicate d Place 1 patch on the skin daily 12/16/19 24 Active methocarbamoL (ROBAXIN) 500 mg tablet Take 1 tablet (500 mg total) by mouth 3 (three) times a day 30 tablet 12/16/19 24 Active polyethylene glycol (MIRALAX) 17 gram/dose bulk powderIndicati ons:constipati on Take 17 g by mouth daily 12/16/19 24 Active senna (SENOKOT) 8.6 mg tablet Take 1 tablet by mouth daily as needed for constipation 12/16/19 24 025 Active sodium chloride 1 gram tablet Take 1 tablet (1 g total) by mouth daily for 7 days 7 tablet 12/16/19 24 Active carvediloL (COREG) 25 mg tablet Take 1 tablet (25 mg total) by mouth 2 (two) times a day with meals 12/16/19 24 025 Active oxyCODONE (ROXICODONE) 5 mg immediate release tabletIndicati ons:Pain Take 1 tablet (5 mg total) by mouth every 4 (four) hours as needed for pain 15 tablet 12/16/19 24 Active ALPRAZolam (XANAX) 0.25 mg tablet 0 01/19/20 24 Active FLUoxetine (PROzac) 40 mg capsule Take 1 capsule (40 mg total) by mouth daily 0 01/27/20 24 Active levothyroxine (SYNTHROID) 50 mcg tablet TAKE 1 TABLET BY MOUTH EVERY DAY 90 tablet 02/05/20 24 Active metFORMIN (GLUCOPHAGE) 500 mg tablet TAKE 1 TABLET BY MOUTH TWICE A DAY WITH FOOD 180 tablet 1 02/29/20 24 Active metFORMIN (GLUCOPHAGE) 500 mg tablet TAKE 1 TABLET BY MOUTH TWICE A DAY WITH FOOD 180 tablet 1 09/07/19 24 024 Discontinued Active Problems Problem Noted Date Diagnosed Date Hyponatremia 12/15/2023 Assessment & Plan (12/16/2023 10:02 AM CDT): 12/14 Na 128, started PO tablets 12/15 Na 129 - Recheck BMP at [facility] in 1 week Acute blood loss anemia (ABLA) 12/13/2023 Assessment & Plan (12/16/2023 10:01 AM CDT): 12/09 Hgb 11-> 8.4, 1 unit PRBC, post transfusion Hgb stable 8.5 12/12 Hgb 6.2, 1unit PRBC, post Hgb 7.1, CTM 12/13 stable Hgb 8.1 12/14 Hgb 8.3, stable 12/15 Hgb 7.7 (7.7), stable Hyperkalemia 12/12/2023 Assessment & Plan (12/16/2023 10:01 AM CDT): 12/11 serum K 5.8-> hyperkalemia protocol initiated, EKG unchanged, repeat whole blood K 4.7, placed Lucio 12/12 stable 5.0 12/13 lateral 5.0-5.4, CTM 12/14 5.3, whole blood K 5.1 12/15 WBK 4.8 Urinary retention 12/12/2023 Assessment & Plan (12/15/2023 11:25 AM CDT): 12/11 required straight cath overnight,430 mL retained, in the setting of Hyperkalemia placed Lucio 12/13 void trial pending 12/14 voiding without difficulty 1.5L RESOLVED Electrolyte depletion 12/10/2023 Assessment & Plan (12/10/2023 8:36 AM CDT): 12/09 magnesium and potassium replaced Symptomatic hypotension 12/10/2023 Assessment & Plan (12/15/2023 11:15 AM CDT): 12/09 called to bedside for systolic BP 70s-80s, ACT called, patient received 1unit RBC, 1L NS, cardiology consult placed, TTE pending BNP (815), Trop (8) and lactate (1.4 POC) Hgb (8.4) obtained, EKG completed, transferring patient to OU for closer monitoring 12/10 well controlling, BP 120/80, HR 100s, will restart Coreg at a lower dose 12.5 mg PO BID (home dose 50 mg PO BID) 12/11 BP well controlled 130/80, noted HR reamins 100-100, will increase Coreg to 25 mg PO BID 12/12 BP remains well controlled 110s/70s, HR afib rate controlled 90s, continue Coreg 25mg BID 12/13 BP 130/70 HR 90s a fib rate controlled, continue Coreg 25 mg PO BID 12/14 120/60-70s, HR 80s a fib rate controlled, continue Coreg 25 mg BID PO RESOLVED Stroke-like symptom 12/10/2023 Assessment & Plan (12/15/2023 11:16 AM CDT): 12/09 code stroke called after patient noted to have left facial droop and left arm ataxia, taken to CT - stat head CT with - New foci of new hypoattenuation within the right temporal lobe and likely the left temporal lobe, although evaluation is somewhat limited due to beam hardening artifact. 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 Recommend follow-up with imaging with contrast-enhanced brain MRI if clinically appropriate. - Chronic left parieto-occipital region of encephalomalacia. Symptoms improved without intervention, continue Q4 neuro checks 12/10 left side still remains slightly weak, but is able to move all extremities, Neurology signed off in the setting of Given low NIHSS and recent surgery patient is not a candidate for either thrombolytics or mechanical thrombectomy. 12/11 still complains of Left side weakness, but is improving 12/12 Left sided weakness improving 12/13 smile seemed equal, will continue to monitor, improving 12/14 continues to improve Sleep apnea 12/10/2023 Assessment & Plan (12/10/2023 3:34 PM CDT): Patient uses CPAP at home - home machine at bedside BMI 34.0-34.9,adult 12/10/2023 Assessment & Plan (12/10/2023 3:35 PM CDT): BMI 34.18 Discharge planning issues 12/09/2023 Assessment & Plan (12/16/2023 10:01 AM CDT): 12/08 OR with orthopedics 12/09 code stroke this morning followed by ACT secondary to hypotension. Patient transferred to OU for closer observation 12/10 bedside ECHO 12/11 Hyperkalemia protocol 12/12 required 1u PRBC 12/13 improved, likely ready for discharge tomorrow 12/14 Patient is medically stable for discharge, SW/CM updated. Discharge pending facility acceptance 12/15 Hgb stable at 7.7 (7.7), DC to [facility] Treatment Plan: done 12/15 Encounter for medication review 12/09/2023 Assessment & Plan (12/09/2023 6:13 AM CDT): Medications reviewed and updated in admissions tab Home pharmacy [facility] in [facility] DNR (do not resuscitate) 12/09/2023 Assessment & Plan (12/09/2023 11:49 AM CDT): Patient wishes to be DNR after OR Advanced care planning/counseling discussion Assessment & Plan (12/10/2023 8:48 AM CDT): Discussed with patient at bedside regarding code status. She does not have paperwork with her, however she would like to remain DNR/DNI after surgery today. Spoke with brother, Shahram bedside 12/08 who also supported patients decision for DNR after surgery, order changed to reflect DNR POD 1 Closed displaced fracture of left femoral neck 0 12/08/2023 Closed nondisplaced intertro chanteric fracture of left femur 12/08/2023 Assessment & Plan (12/14/2023 9:13 AM CDT): - ortho consult - 12/09 OR for ORIF of L intertrochanteric femur fx Plan: Follow up with Dr. 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 Patient has follow-up with Urology for continued management of the kidney stones. Assessment & Plan (03/21/2021 12:52 PM COGNOS LEAD): Will arrange for stat CT abdomen pelvis without contrast in stat labs today. Will notify patient of the results as they become available. She was advised to report to the ER in the interim if symptoms are worsening. Pica in adults 08/21/2020 Assessment & Plan (08/21/2020 4:37 PM CDT): History of, even as a child. Will evaluate further on labs. Thyroid nodule 08/21/2020 Assessment & Plan (11/12/2020 5:11 PM CDT): Thyroid US Refer to ENT Assessment & Plan (08/21/2020 4:37 PM CDT): Will evaluate further with labs and imaging. She will call to arrange US, will notify us if she has not heard results from us 72h after completing the exam. Moderate episode of recurrent major depressive d isorder 08/21/2020 Assessment & Plan (10/21/2021 12:54 PM CDT): We will increase her Prozac from 40 mg daily to 60 mg daily. We discussed at length this question of a new relationship. She was encouraged to set boundaries with this friend, and if she is not desiring anything other than friendship to notify him. Assessment & Plan (07/15/2021 5:40 PM CDT): Stable, continue medications the same at this time Encouraged her to pursue counseling further, will let us know if needing assistance Assessment & Plan (06/17/2021 1:08 PM CDT): Continue prozac same dose at this time Assessment & Plan (06/03/2021 9:17 PM CDT): Continue with prozac the same at this time Assessment & Plan (06/02/2021 9:49 AM CDT): Patient with depression. Her Xanax was stopped in the hospital due to increased fall risk. She was started on fluoxetine 40 mg. She has not been on it for extended amount of time so will take time for it to kick in. Patient is aware of this and willing to monitor. Assessment & Plan (03/12/2021 7:23 PM COGNOS LEAD): Increase prozac dosing Advised finding hobbies to help take her mind off of world events Assessment & Plan (02/05/2021 5:41 PM COGNOS LEAD): Add prozac every day, continue with prn xanax Assessment & Plan (01/17/2021 6:10 PM CDT): Taper zoloft, start paxil She will be referred to psychiatry - phone number given for her to call as soon as possible for appt Assessment & Plan (10/29/2020 12:36 PM CDT): Increase wellbutrin, continue with xanax prn Assessment & Plan (08/21/2020 4:38 PM CDT): Will taper cymbalta at her request. Will start on wellbutrin when taper is finished. She was advised to monitor for worsening depression during medication change and let us know if experiencing. AYAD on CPAP 08/21/2020 Assessment & Plan (07/15/2021 5:40 PM CDT): Stable, continue medications the same at this time Assessment & Plan (03/12/2021 7:23 PM COGNOS LEAD): Continue with prn ambien Assessment & Plan (02/05/2021 5:42 PM COGNOS LEAD): Continue with prn ambien Assessment & Plan (11/12/2020 5:12 PM CDT): Increase ambien to 10mg at hs/prn Assessment & Plan (08/21/2020 4:37 PM CDT): On prn ambien, will refill as needed Gastro-esophageal reflux disease without esophag itis 06/05/2019 WAI (generalized anxiety disorder) 06/05/2019 Assessment & Plan (12/09/2023 6:11 AM CDT): Home xanax, continued PRN Slow transit constipation 06/05/2019 Acquired hypothyroidism 05/31/2019 Assessment & Plan (12/09/2023 8:53 AM CDT): Continue home levothyroxine Assessment & Plan (10/21/2021 12:54 PM CDT): Will evaluate further and routine labs. Will notify her of the results of these labs as they become available. Assessment & Plan (06/02/2021 9:48 AM CDT): Check labs. Continue levothyroxine 50 mcg Assessment & Plan (03/12/2021 7:22 PM COGNOS LEAD): Will evaluate further with labs Continue meds same at this time Assessment & Plan (12/27/2020 12:53 PM CDT): Fasting labs entered, will notify patient of results as available Assessment & Plan (08/21/2020 4:37 PM CDT): Fasting labs entered, will notify patient of results as available Assessment & Plan (05/31/2019 8:14 PM CDT): Continue home levothyroxine 25 mcg daily Type 2 diabetes mellitus without complications ( [facility]) 05/31/2019 Assessment & Plan (12/10/2023 7:01 AM CDT): Continue DM diet with SSI Holding home glipizide and metformin A1C 6.5 Assessment & Plan (10/21/2021 12:55 PM CDT): Patient advised goal glucose fasting 80-120. They were reminded to contact the office if having difficulty keeping sugar in goal ranges. They were advised to not skip meals and maintain a heart healthy diet (cut back on processed foods, red meat, fried foods). They were reminded to exercise 4x/week for 30min each session. Fasting labs entered, will notify patient of results as available Assessment & Plan (03/12/2021 7:22 PM COGNOS LEAD): Continue medications same at this time Encouraged heart healthy diet Advised increasing frequency of eating Assessment & Plan (02/05/2021 5:42 PM COGNOS LEAD): Stable, continue meds same at this time Assessment & Plan (12/27/2020 12:53 PM CDT): Fasting labs entered, will notify patient of results as available Continue medications same at this time Assessment & Plan (11/29/2020 10:30 AM CDT): Increase glipizide to 10mg bid - will take with meals, discussed potential for hypoglycemia Dc metformin Assessment & Plan (11/12/2020 5:11 PM CDT): Increase glipizide Assessment & Plan (10/29/2020 12:36 PM CDT): Discontinue januvia due to cost Will start on low dose glipizide, advised monitoring for hypoglycemia and dizziness. Will increase over the coming weeks pending response. Assessment & Plan (10/16/2020 8:00 PM CDT): Increase januvia to 50mg every day We discussed discontinuing and changing to glipizide when due for refill - januvia is too costly Assessment & Plan (09/04/2020 12:18 PM CDT): Add januvia 25mg every day. Will continue with metformin. We reviewed recent labs, encouraged hgb a1c of 6.0%. Encouraged healthier eating habits. Assessment & Plan (08/21/2020 4:36 PM CDT): Fasting labs entered, will notify patient of results as available She will work on lower carb diet Encouraged her to find a pool to exercise in as she has difficulty with left knee/falling Assessment & Plan (05/31/2019 8:17 PM CDT): Home regimen of metformin 1 g BID, semaglutide weekly. - A1c 6.5% on 05/30/19 - Continue lantus 10 units qhs with MDSSI Essential hypertension 05/31/2019 Assessment & Plan (12/15/2023 11:14 AM CDT): home medications Coreg, cozaar, spironolactone 12/09 holding all home medications secondary to hypotension 12/10 BP 120/80s, HR 100s, will restarting Coreg 12.5 mg PO BID (home dose 50 mg PO BID) 12/11 BP well controlled 130/80, noted HR reamins 100-100, will increase Coreg to 25 mg PO BID 12/13 BP 130/70 HR 90s a fib rate controlled, continue Coreg 25 mg PO BID 12/14 BP 120/60-70s, HR 80s a fib rate controlled, continue Coreg 25 mg BID PO Assessment & Plan (10/21/2021 12:54 PM CDT): She will continue with medications the same at this time and report the blood pressure readings to her integration director. Assessment & Plan (07/15/2021 5:40 PM CDT): Continue with care per integration director Assessment & Plan (06/17/2021 1:09 PM CDT): Increase losartan to 100mg daily Provider contacted Dr. Mendes's office - appt made for 07/02/21 at 140pm. She is going to reschedule hematology as it is scheduled around the same time. She will monitor for any chest pain, pulse >120 - will report to ER if experiencing. Discussed goal 120-130/80s on bp. Assessment & Plan (06/02/2021 9:49 AM CDT): BP is running on the high end today. She is status post stroke so will let it run a little high. She is to monitor at home. She will follow-up with Bhargav pickard with on Thursday and bring the readings in with her. Encouraged to limit sodium intake and exercise for weight control. Assessment & Plan (10/16/2020 3:03 PM CDT): Discontinue losartan Has appt pending with cv that she will keep Will monitor home bp with goal 120/80 Assessment & Plan (08/21/2020 4:37 PM CDT): Managed by integration director, continue medication same at this time Assessment & Plan (06/04/2019 7:57 AM CDT): Patient on amlodipine 5 mg, losartan 100 mg, carvedilol 25 mg BID, and HCTZ 25 mg at home - Currently holding home antihypertensives in setting of PE with soft blood pressures, restart as tolerated Presence of left artificial knee joint 0 Paroxysmal atrial fibrillation (CMS/HCC) 018 Assessment & Plan (12/14/2023 9:12 AM CDT): Holding home eliquis and Carvedilol 12/10 A fib controlled HR 100s, restarting Coreg 12.5 mg PO BID (home dose 50 mg PO BID) CTM 12/11 HR 90s a fib rate controlled, continue Coreg 25 mg PO BID 12/13 remains rate controlled 90s, continue Coreg 25 mg PO BID Follow up scheduled: [facility] 01/31 at 1:20 Assessment & Plan (08/21/2020 4:37 PM CDT): Managed by integration director, has pet/ct stress this week. Essential tremor Hyperlipidemia Resolved Problems Problem Noted Date Diagnosed Date Resolved Date Weakness of both lower extremities 02/13/2022 08/13/2022 Nausea 06/02/2021 08/13/2022 Assessment & Plan (06/02/2021 9:59 AM CDT): Patient states she is having a little bit of nausea today unsure of the underlying cause but will provide some Zofran to use as needed. If symptoms worsen she needs to follow-up. Iron deficiency anemia 06/01/202103/03 Assessment & Plan (10/21/2021 12:55 PM CDT): History of, she will continue with Hematology. We will repeat a CBC at this time. Assessment & Plan (07/15/2021 5:40 PM CDT): Has appt pending for hematology that she will keep Assessment & Plan (06/17/2021 1:09 PM CDT): Repeat cbc this week Has appt pending with hematology that she will keep Assessment & Plan (06/03/2021 9:18 PM CDT): We reviewed labs from hospital stay, will start on ferrous sulfate. Will refer to hematology for further evaluation and treatment. Assessment & Plan (06/02/2021 9:52 AM CDT): Patient has noted anemia over the last month or so she has had blood loss related to the kidney stones. It does not appear she has had an anemia workup otherwise. She dropped to 7.8 in the hospital and was discharged 8.8. She appears anemic today with very pale conjunctiva and just significant fatigue. Will go ahead and get stat labs for her hemoglobin hematocrit. Encouraged high iron foods as tolerated. Will benefit from starting iron but she is voicing an increased nausea today so hesitant to start her on iron supplementation. Will discuss further with PCP at her Thursday appointment. Closed fracture of distal en d of left fibula with routine healing 06/01/2021 10/09/2022 Assessment & Plan (06/03/2021 9:17 PM CDT): She has pending referral for ortho Declines wc at this time She will continue with [facility] boot Assessment & Plan (06/02/2021 9:54 AM CDT): Patient sustained a distal fibular fracture after falling related to the stroke. She is currently in a boot. She needs to see Orthopedics and has been scheduled at [facility] that would prefer to [place]. Will make referral to Ortho in [place] for definitive management of this ankle fracture. Kidney stone 05/21/2021 10/09/2022 Acute left flank pain 03/21/20212021 Assessment & Plan (03/21/2021 12:52 PM COGNOS LEAD): Will arrange for stat CT abdomen pelvis without contrast in stat labs today. Will notify patient of the results as they become available. She was advised to report to the ER in the interim if symptoms are worsening. Acute cystitis with hematuria 03/12/2021 10/21/2021 Assessment & Plan (03/21/2021 12:52 PM COGNOS LEAD): Will arrange for stat CT abdomen pelvis without contrast in stat labs today. Will notify patient of the results as they become available. She was advised to report to the ER in the interim if symptoms are worsening. Assessment & Plan (03/12/2021 7:25 PM COGNOS LEAD): We reviewed poc ua. Will culture urine, will notify her of results as available. Advised to f/u in next week if not improving, sooner if worsening. BMI 29.0-29.9,adult 03/12/2021 06/04/19 22 Weight loss 03/12/2021 08/13/2022 Assessment & Plan (03/12/2021 7:24 PM COGNOS LEAD): Will evaluate further with labs and imaging, will notify her of results as they become available Dysuria 03/12/2021 10/21/2021 Assessment & Plan (06/02/2021 9:50 AM CDT): Pt presents with dysuria. Urine dip completed. Send urine culture. The deployed pretty clear. She has no hematuria. Will hold off on antibiotic until culture is available. If she starts running fever chills or sweats she is to contact the office immediately BMI 32.0-32.9,adult 12/27/2020 06/04/19 Assessment & Plan (01/17/2021 6:09 PM CDT): Encouraged heart healthy diet, exercise 4x/week for 30min each session Assessment & Plan (12/27/2020 10:39 AM CDT): Obesity is unchanged. Discussed the patient's BMI. The BMI is above average. BMI management plan is completed. BMI Follow-up includes: nutrition counseling, exercise counseling and education provided. Fatigue 12/27/2020 08/13/2022 Assessment & Plan (03/12/2021 7:23 PM COGNOS LEAD): Will evaluate further with labs and imaging, will notify her of results as they become available Assessment & Plan (12/27/2020 12:54 PM CDT): Will monitor further with labs, will notify her of these results as available. Discussed and advised a holter monitor, which she declines at the current time. We discussed that further evaluation is needed given symptoms, and also to consider that the stress is physically exhausting and manifesting physically. Carpal tunnel syndrome of left wrist 11/12/2020 03/03/2023 Assessment & Plan (11/12/2020 5:12 PM CDT): Advised cockup splint left wrist at hs Advised referral for ortho - she declines at this time Blister 10/29/2020 10/09/2022 Assessment & Plan (10/29/2020 12:37 PM CDT): Offered and advised referral for excision, she declines at this time Dizziness 09/18/2020 02/13/2022 Assessment & Plan (09/18/2020 3:38 PM CDT): Decrease losartan from 50mg daily to 25mg daily. She will continue to monitor bp and call office if running >130/80. We discussed bp contributing likely however eustachian tube dysfunction also likely the cause due to nasal congestion. Will start on flonase and antibiotic. She will call in the next week if not improving, sooner if worsening so further workup can be initiated. Rib pain on left side 09/04/20202022 Assessment & Plan (09/04/2020 12:17 PM CDT): Xray ribs, will notify of results as available Advised norco 1 tab q6h prn pain, advised caution driving for 6h after taking. 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 Dyspnea 09/04/2020 02/13/2022 Assessment & Plan (09/04/2020 12:18 PM CDT): Currently being evaluated by integration director, cardiac cath pending. Will also refer to accounting administrator for further evaluation and treatment. BMI 30.0-30.9,adult 08/21/2020 10/10/19 23 Assessment & Plan (01/17/2021 6:09 PM CDT): Encouraged heart healthy diet, exercise 4x/week for 30min each session Assessment & Plan (12/27/2020 10:40 AM CDT): Obesity is unchanged. Discussed the patient's BMI. The BMI is above average. BMI management plan is completed. BMI Follow-up includes: nutrition counseling, exercise counseling and education provided. Assessment & Plan (11/29/2020 10:10 AM CDT): Obesity is unchanged. Discussed the patient's BMI. The BMI is above average. BMI management plan is completed. BMI Follow-up includes: nutrition counseling, exercise counseling and education provided. Assessment & Plan (11/12/2020 3:36 PM CDT): Obesity is unchanged. Discussed the patient's BMI. The BMI is above average. BMI management plan is completed. BMI Follow-up includes: nutrition counseling, exercise counseling and education provided. Assessment & Plan (10/29/2020 11:14 AM CDT): Obesity is unchanged. Discussed the patient's BMI. The BMI is above average. BMI management plan is completed. BMI Follow-up includes: nutrition counseling, exercise counseling and education provided. Assessment & Plan (10/16/2020 2:42 PM CDT): Obesity is unchanged. Discussed the patient's BMI. The BMI is above average. BMI management plan is completed. BMI Follow-up includes: nutrition counseling, exercise counseling and education provided. Assessment & Plan (09/18/2020 1:36 PM CDT): Obesity is unchanged. Discussed the patient's BMI. The BMI is above average. BMI management plan is completed. BMI Follow-up includes: nutrition counseling, exercise counseling and education provided. Assessment & Plan (09/04/2020 10:55 AM CDT): Obesity is unchanged. Discussed the patient's BMI. The BMI is above average. BMI management plan is completed. BMI Follow-up includes: nutrition counseling, exercise counseling and education provided. Anxiety 08/21/2020 03/03/2023 Assessment & Plan (10/21/2021 12:53 PM CDT): We will increase her Prozac from 40 mg daily to 60 mg daily. We discussed at length this question of a new relationship. She was encouraged to set boundaries with this friend, and if she is not desiring anything other than friendship to notify him. Assessment & Plan (07/15/2021 5:40 PM CDT): Stable, continue medications the same at this time Encouraged her to pursue counseling further, will let us know if needing assistance Assessment & Plan (06/03/2021 9:16 PM CDT): Resume xanax as she has discontinued narcotic pain meds Assessment & Plan (06/02/2021 9:49 AM CDT): See depression Assessment & Plan (03/12/2021 7:22 PM COGNOS LEAD): Will increase strength of xanax, encouraged using prn Assessment & Plan (02/05/2021 5:41 PM COGNOS LEAD): Add prozac every day, continue with prn xanax Assessment & Plan (01/17/2021 6:10 PM CDT): Taper zoloft, start paxil She will be referred to psychiatry - phone number given for her to call as soon as possible for appt Assessment & Plan (12/27/2020 12:53 PM CDT): Increase xanax to tid Increase zoloft Refer for counseling Assessment & Plan (11/29/2020 10:30 AM CDT): Add zoloft daily, continue with prn xanax Assessment & Plan (11/12/2020 5:12 PM CDT): Decrease wellbutrin Continue prn xanax Assessment & Plan (10/16/2020 8:00 PM CDT): Slightly increased at this time, has good support system. Using prn xanax and will let us know when needs refilled. Assessment & Plan (09/18/2020 3:37 PM CDT): Refill xanax prn. We discussed potentially increasing pending the coming weeks/months with 's situation. Assessment & Plan (08/21/2020 4:38 PM CDT): Has prn xanax, not utilizing often. We discussed not using concomitantly with nigelien, advised alternatives. Will start by changing to wellbutrin to see if depression/anxiety is better controlled. Vitamin D deficiency 08/21/2020 023 Assessment & Plan (08/21/2020 4:36 PM CDT): Fasting labs entered, will notify patient of results as available Encounter to establish care 08/21/2020 10/21/2021 Pulmonary embolism 06/10/2019 3 Acute on chronic systolic CH F (congestive heart failure) ([facility]) 06/08/2019 02/13/2022 Non-ST elevation (NSTEMI) my ocardial infarction ([facility]) 06/08/2019 08/13/2022 Chronic combined systolic (c ongestive) and diastolic (congestive) heart failure 06/05/2019 Hypertensive heart disease w ith heart failure ([facility]) 06/05/2019 09/02/2023 Hypokalemia 06/05/2019 02/13/2022 Assessment & Plan (06/17/2021 1:09 PM CDT): Resume kcl 20meq one tab daily Repeat bmp this week Insomnia, unspecified 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 Likely provoked PE in setting of recent surgery, immobilization, and restarting warfarin at subtherapeutic INR without bridging. - TTE 05/30/19: Normal LV chamber size, moderate systolic dysfunction, LVEF=38%. Marked LAE. Moderate MAC. Mildly dilated RV, moderate RV hypokinesis. Mild KAROL. Dilated inferior vena cava. Mild MR and TR. Moderate . - lower extremity dopplers positive for acute RLE DVT - Continue heparin gtt - s/p warfarin 5 mg load, transition to maintenance dose at 2 mg - increase lasix to 20 mg BID - Monitor INR daily Obstructive sleep apnea 05/31/201902/13 Assessment & Plan (05/31/2019 8:14 PM CDT): Continue home nocturnal CPAP Left femoral fracture 05/31/20192021 Assessment & Plan (06/04/2019 7:58 AM CDT): Recent distal femoral fracture s/p debridement on 05/21 and left knee arthroplasty with distal femoral replacement on 05/24. - Left lower extremity weight bearing as tolerated - Orthopedics following: theodore to stay in place until follow-up outpatient appointment - Pain control with Tylenol 1 g q6h PRN and oxycodone 5 mg q4h PRN second line - PT/OT Open fracture of left distal femur (CMS/HCC) 0 06/01/2021 Overview (05/22/2019): Added automatically from request for surgery [id number] Closed displaced comminuted fracture of shaft of left femur 05/21/2019 06/01/2021 Overview (05/23/2019): Added automatically from request for surgery [id number] BMI 36.0-36.9,adult 10/11/2015 09/05/19 Assessment & Plan (08/21/2020 10:46 AM CDT): Obesity is unchanged. Discussed the patient's BMI. The BMI is above average. BMI management plan is completed. BMI Follow-up includes: nutrition counseling, exercise counseling and education provided. Encounters Date Type Department Care Team Description 02/26/2024 Orders Only [facility] [address] [place] [address] Cuba Larsen MD 02/22/2024 Telephone [facility] Family Medicine at [place] [address] [place] [phone] Cuba Larsen MD Referral Request 02/18/2024 Orders Only [facility] Medical [facility] Cardiology [address] [place] [phone] Magnolia Rico NP 02/15/2024 Orders Only [facility] Cardiology [address] [place] [phone] Catarino Ramirez MD 02/13/2024 Orders Only [facility] [address] [place] [address] Cuba Larsen MD 02/11/2024 Orders Only [facility] Information [facility] [address] [place] [address] Cuba Larsen MD 02/10/2024 Orders Only [facility] [address] [place] [address] Cuba Larsen MD 02/08/2024 ACO Clinical Pharmacist [facility] Accountable Care Organization [address] [place] [address] Racquel Nance jaylin 02/05/2024 Telephone [facility] Cardiology [address] [place] [address] [place] [address] Chris Mendes MD LAAO IOV 02/03/2024 Orders Only [facility] Transplant Heart [address] Mailstop [phone] [place] [address] Keli Orozco RN Paroxysmal atrial fibrillation (CMS/HCC) (HCC) (Primary Dx) 02/01/2024 1:20 PM COGNOS LEAD Office Visit [facility] Cardiology [address] [place] [address] [place] [address] Chris Mendes MD Other hyperlipidemia (Primary Dx); Mitral valve prolapse; Essential hypertension 01/19/2024 Telephone [facility] Medical [facility] Family Medicine at [address] [place] [address] Cuba Larsen MD Referral Request 01/18/2024 2:15 PM COGNOS LEAD Office Visit [facility] Orthopaedic Surgery [address] [place] [address] [place] [address] Homer Villalobos MD Closed displaced fracture of left femoral neck (HCC) (Primary Dx); Open intertrochanteric fracture of left femur, sequela 01/18/2024 2:00 PM COGNOS LEAD - 01/18/2024 11:59 PM COGNOS LEAD Hospital Encounter [facility] [address] [place] [address] Closed displaced fracture of left femoral neck (HCC) Discharge Disposition: Discharge to home or self care 01/15/2024 Telephone [facility] Medical [facility] Family Medicine at [address] [place] [phone] Cuba Larsen MD Referral Request 01/05/2024 Telephone [facility] Family Medicine at [address] [place] [phone] Cuba Larsen MD 1st no show letter sent 01/05/24 01/04/2024 Telephone [facility] Scheduling [address] [place] [address] Gilda Hollingsworth DNP Scheduling Appointments 12/25/2023 Telephone [facility] Medical [facility] Family Medicine at [address] [place] [phone] Cuba Larsen MD Medical Question/Miscellaneous 12/08/2023 11:19 AM CDT - 12/16/2023 6:50 PM CDT Hospital Encounter [facility] [address] [place] [address] Steve Huber MD Stickles, MD Misael Sky, MD Omid Boone, Kevin Benton MD Closed displaced fracture of left femoral neck (HCC) (Primary Dx); Contusion of left shoulder, initial encounter; Fall, initial encounter; Fall from standing, initial encounter; Chronic heart failure with reduced ejection fraction and diastolic dysfunction (CMS/HCC) (HCC); Primary hypertension; Obstructive sleep apnea on CPAP; History of CAD (coronary artery disease); History of diabetes mellitus; Closed nondisplaced intertrochanteric fracture of left femur, initial encounter (HCC); Anxiety; Hyponatremia Discharge Disposition: Discharge to SNF from Last 3 Months Immunizations Name Administration Dates Next Due Influenza, Quad, Adjuvantate d, Intramuscular 12/06/2022 Influenza, Quadrivalent, Hig h Dose, Preservative Free, Intrr 01/18/2022,01/18/2021 Influenza, Trivalent, High D ose, Split, Preservative Free, Intramuscular 01/07/2019 Influenza, Unspecified 01/19/2022,12/14/2018 Moderna SARS-CoV-2 Monovalen t Vaccination (12+ YRS) 02/19/2021,05/23/2020,04/25/2020 Pneumococcal Conjugate PCV 13 10/21/2021 Pneumococcal Conjugate Pcv20 03/03/2023 RSV Vaccine, Pref, Recombina nt, Subunit, Adjuvanted, PF, IM (Arexvy) 10/28/2023 Tdap 05/21/2019 Surgical History Surgery Date Site/Laterality Comments HYSTERECTOMY CHOLECYSTECTOMY BREAST LUMPECTOMY HAND SURGERY Left plate & screws INCISION AND DRAINAGE FEMUR 05/22/2019 Left KIDNEY STONE SURGERY Medical History Medical History Date Comments Hypothyroidism Mitral regurgitation Sleep apnea PONV (postoperative nausea and vomiting) Obesity Hyperlipidemia Diabetes mellitus (HCC) Heart murmur GERD (gastroesophageal reflux disease) Anxiety Patellar sleeve fracture of left knee Pulmonary embolism (HCC) Zenker's diverticulum Insomnia Aortic stenosis, moderate Adrenal nodule (HCC) AYAD on CPAP Cardiomyopathy (HCC) HFrEF (heart failure with reduced ejection fract ion) (CMS/HCC) (HCC) NSTEMI (non-ST elevated myocardial infarction) ( CMS/HCC) (HCC) Motion sickness Family History Medical History Relation Name Comments Diabetes Father Family history of diabetes mellitus - (Added by Conv) Heart attack Father Family history of heart attack - (Added by Conv) Heart disease Father Hypertension Father Family hx of hy pertension - (Added by Conv) Heart disease Mother Heart failure Mother Family history of heart failure - (Added by Conv) Sudden Cardiac Mother Family history of sudden cardiac - (Added by Conv) Diabetes Son Family history of diabetes mellitus - (Added by Conv) Anesthesia problems Neg Hx Relation Name Status Comments Brother Alive Father Mother Son Social History Tobacco Use Types Packs/Day Years Used Date Smoking Tobacco: Never Smokeless Tobacco: Never Tobacco Cessation:Counseling Given: Not Answered Alcohol Use Standard Drinks/Week Comments Yes 0 (1 standard drink = 0.6 oz pur e alcohol) 1/mo AUDIT-C Answer Date Recorded Q1: How often do you have a drink containing alcohol? Never 12/09/2023 Q2: How many drinks containi ng alcohol do you have on a typical day when you are drinking? Patient does not drink Q3: How often do you have si x or more drinks on one occasion? Never 12/09/2023 PHQ-2 Answer Date Recorded PHQ-2 Total Score (If total score is 3 or more points, staff should administer the PHQ-9) 0 11/03/2023 Personal Safety Answer Date Recorded Have you ever been in or are you currently in a harmful physical or emotional relationship or is someone making you feel afraid or unsafe? Denies 12/09/2023 Comments No Sex and Gender Information Value Date Recorded Sex Assigned at Not on file Legal Sex Female 4:20 AM COGNOS LEAD Gender Identity Not on file Sexual Orientation Not on file Obstetrics History Last Filed Vital Signs Vital Sign Reading Time Taken Comments Blood Pressure 95/58 02/01/2024 1:39 PM COGNOS LEAD Pulse 81 02/01/2024 1:39 PM COGNOS LEAD Temperature 36.1 ??C (97 ??F) 12/16/2023 5:14 PM CDT Respiratory Rate 18 12/16/2023 6:20 PM CDT Oxygen Saturation 95% 02/01/2024 1:39 PM COGNOS LEAD Inhaled Oxygen Concentration - - Weight 81.6 kg (180 lb) 02/01/2024 1:39 PM COGNOS LEAD Height 157.5 cm (5' 2 ) 02/01/2024 1:39 PM COGNOS LEAD Body Mass Index 32.92 02/01/2024 1:39 PM COGNOS LEAD Plan of Treatment Health Maintenance Due Date Last Done Comments Osteoporosis Screening-Bone Density Scan 1940 Hepatitis B Screening 1958 Zoster Vaccine (1 of 2) 1991 Covid-19 Vaccine (2023-2 5 season) 2023 03/31/2022, 02/19/2021, 05/23/2020, Additional history exists Influenza Vaccine (#1) 2023 , 01/19/2022, 01/18/2022, Additional history exists Dilated Eye Exam 12/11/2023 12/10/2022, 06/25/2020 Albumin Creatinine Ratio, Urine 02/24/2024 Foot Exam 03/03/2024 03/03/2023, 08/13/2022 Hemoglobin A1C 06/07/2024 12/09/2023, 07/15, 02/23/2023, Additional history exists Lipid Panel 08/06/2024 08/07/2023, 02/13, 07/22/2022, Additional history exists Well Visit 65+ 09/01/2024 09/02/2023, 02/13, 08/13/2022 Depression Screening 11/02/2024 11/03/2023, 09/02/2023, 09/02/2023, Additional history exists eGFR 12/14/2024 12/15/2023, 11/16, 12/13/2023, Additional history exists Fall Risk Assessment 12/15/2024 12/16/2023, 11/03/2023, 09/02/2023, Additional history exists DTaP/Tdap/Td Vaccine (2 - Td or Tdap) 05/20/2029 05/21/2019 Pneumococcal vaccine 65+ Completed 03/03/2023, 0810/2021 Medical Devices Implanted Type Area Assembler Finger Buffs Device Identifier Shelf Expiration Date Model / Serial / Lot Plate-07/29/2015 Implanted:07/28 (Quantity not on file) Plate Left: Wrist Screw-07/29/2015 Implanted:07/28 (Quantity not on file) Screw Left: Wrist Description:x2 Synthes 4.5mm 8mm 40mm Self Tap Large Hexagonal Socket Cortex Screw Bone 214.840 - [id number] Implanted:Qty: 1 on 12/09/2023 by Homer Villalobos MD at [facility] Screw Left: Femur Synthes 214.840 / / [employer] 6191--010 Simplex P Radiopaque Full Dose [place]ement Bone Sterile - [id number] Implanted:Qty: 1 on 05/25/2019 by Kaveh Charles MD at [facility] Left: Femur [employer] 01/13/2021 6191-010 / / [id number] [employer] 61 Simplex P Radiopaque Full Dose [place]ement Bone Sterile - [id number] Implanted:Qty: 1 on 05/25/2019 by Kaveh Charles MD at [facility] Left: Femur [employer] 03/15/2021 6191-010 / / [id number] [employer] [id number] Most Ii H14 Mm Rotating Hinge; Segment; Machine Mold Knee B Inser - [id number] Implanted:Qty: 1 on 05/25/2019 by Kaveh Charles MD at [facility] Left: Knee [employer] [id number] 02/12/2025 [id number] / / [id number] [employer] 44-5096-190-96 Xt Knee B Insert Tibial Polyethylene - [id number] Implanted:Qty: 1 on 05/25/2019 by Kaveh Charles MD at [facility] Left: Femur [employer] [id number] 04/15/2027 68-1550-600-9 6 / / [id number] Cmpnt Fem B Knee Left Albert Strl Segmental System - [id number] Implanted:Qty: 1 on 05/25/2019 by Kaveh Charles MD at [facility] Left: Femoral [employer] [id number] 04/15/2027 [id number] / / [id number] [employer]/O rtho [id number] Prep-Im Plug [place] Sponge Suction Hip Kit Thr Latex Free - [id number] Implanted:Qty: 1 on 05/25/2019 by Kaveh Charles MD at [facility] Left: Femur [employer]/ Ortho [id number] / / [employer] 6191--010 Simplex P Radiopaque Full Dose [place] Bone Sterile - [id number] Implanted:Qty: 1 on 05/25/2019 by Kaveh Charles MD at [facility] Left: Femur [employer] 01/13/2021 6191--010 / / [id number] [employer] 61010 Simplex P Radiopaque Full Dose [place]ement Bone Sterile - [id number] Implanted:Qty: 1 on 05/25/2019 by Kaveh Charles MD at [facility] Left: Femur [employer] 12/13/2020 6191-1-010 / / [id number] [employer] [id number] Nexgen 41n28fd Rotating Hinge Knee 2 Plate Tibial Zimaloy Pmma - [id number] Implanted:Qty: 1 on 05/25/2019 by Kaveh Charles MD at [facility] Left: Tibia [employer] [id number] 01/13/2023 [id number] / / [id number] [employer] [id number] 35mm Collar Knee Component Segmental Trabecular Metal 9-16mm Stem - [id number] Implanted:Qty: 1 on 05/25/2019 by Kaveh Charles MD at [facility] Left: Tibia [employer] [id number] 02/12/2023 [id number] / / [id number] [employer] [id number] Nexgen 13mm 130mm Cemented Segmental Knee Femur Straight Flute - [id number] Implanted:Qty: 1 on 05/25/2019 by Kaveh Charles MD at [facility] Left: Tibia [employer] [id number] 09/12/2028 [id number] / / [id number] [email or web address] Angio-Seal Vip Bondek-Plus 8fr .038in 70cm Hemostatic Latex Free [id number] - [id number] Implanted:Qty: 1 on 08/07/2023 [email or web address] 04/07/2024 [id number] / / [id number] Synthes Dhs/Dcp 174mm 38mm 10 Hole Hip Condyle 130d Standard Barrel Plate 281.010s - [id number] Implanted:Qty: 1 on 12/09/2023 by Homer Villalobos MD at [facility] Left: Femur [employer] [id number] 04/15/2029 281.010S / / [id number] Synthes 4.5mm 8mm 38mm Self Tap Large Hexagonal Socket Cortex Screw Bone 214.838 - [id number] Implanted:Qty: 1 on 12/09/2023 by Homer Villalobos MD at [facility] Left: Femur Synthes 214.838 / / Synthes Dhs Dcs 36mm Compression Hip Condylar Screw Bone Stainless Steel 280.990 - [id number] Implanted:Qty: 1 on 12/09/2023 by Homer Villalobos MD at [facility] Left: Femur Synthes 280.990 / / Synthes 1.7mm 750mm Crimp [employer] Stainless Steel 298.801.01s - [id number] Implanted:Qty: 1 on 12/09/2023 by Homer Villalobos MD at [facility] Left: Femur [employer] [id number] 09/12/2028 298.801.01S / / [id number] Synthes Dhs Dcs 12mm 8mm 2.7mm 90mm 22mm Lag Cannulated Hip Condylar 280.290 - [id number] Implanted:Qty: 1 on 12/09/2023 by Homer Villalobos MD at [facility] Left: Femur Synthes 280.290 / / Procedures Procedure Name Priority Date/Time Associated Diagnosis Comments SCAN - RADIOLOGY/IMAGING 02/26/2024 CARDIOLOGY DOCUMENT SCAN Routine 02/17/2024 2:22 PM COGNOS LEAD CARDIOLOGY DOCUMENT SCAN Routine 02/15/2024 2:18 PM COGNOS LEAD CARDIOLOGY DOCUMENT SCAN Routine 02/14/2024 6:35 PM COGNOS LEAD SCAN - RADIOLOGY/IMAGING 02/13/2024 CARDIOLOGY DOCUMENT SCAN 02/12/2024 SCAN - RADIOLOGY/IMAGING 02/11/2024 SCAN - RADIOLOGY/IMAGING 02/10/2024 XR FEMUR LEFT 2 OR MORE VIEWS Schedule Routine, Read Routine (OP Routine) 01/18/2024 2:34 PM COGNOS LEAD Closed displaced fracture of left femoral neck (HCC) POCT GLUCOSE DEVICE Routine 12/16/2023 5 :11 PM CDT POCT GLUCOSE DEVICE Routine 12/16/2023 1 1:18 AM CDT COVID-19 CORONAVIRUS RNA Routine 12/16/2023 10:15 AM CDT TYPE AND SCREEN Timed 12/16/2023 9:21 AM CDT CBC WITHOUT DIFFERENTIAL Timed 12/16/2023 8:20 AM CDT MISLABLED TEST Routine 12/16/2023 8:14 AM CDT POCT GLUCOSE DEVICE Routine 12/16/2023 7 :50 AM CDT POTASSIUM, WHOLE BLOOD Routine 12/15/2023 11:54 PM CDT POCT GLUCOSE DEVICE Routine 12/15/2023 9 :08 PM CDT EGFR Routine 12/15/2023 8:48 PM CDT PHOSPHORUS Routine 12/15/2023 8:48 PM CDT MAGNESIUM Routine 12/15/2023 8:48 PM CDT BASIC METABOLIC PANEL Routine 12/15/2023 8:48 PM CDT CBC WITHOUT DIFFERENTIAL Routine 12/15/2023 8:48 PM CDT POCT GLUCOSE DEVICE Routine 12/15/2023 5 :43 PM CDT POCT GLUCOSE DEVICE Routine 12/15/2023 1 1:37 AM CDT POCT GLUCOSE DEVICE Routine 12/15/2023 7 :47 AM CDT POTASSIUM, WHOLE BLOOD STAT 12/15/2023 12:25 AM CDT POCT GLUCOSE DEVICE Routine 12/14/2023 9 :51 PM CDT EGFR Routine 12/14/2023 9:51 PM CDT PHOSPHORUS Routine 12/14/2023 9:51 PM CDT MAGNESIUM Routine 12/14/2023 9:51 PM CDT BASIC METABOLIC PANEL Routine 12/14/2023 9:51 PM CDT CBC WITHOUT DIFFERENTIAL Routine 12/14/2023 9:51 PM CDT POCT GLUCOSE DEVICE Routine 12/14/2023 5 :25 PM CDT POCT GLUCOSE DEVICE Routine 12/14/2023 1 1:51 AM CDT POCT GLUCOSE DEVICE Routine 12/14/2023 8:16 AM CDT CBC WITHOUT DIFFERENTIAL Routine 12/14/2023 3:20 AM CDT POCT GLUCOSE DEVICE Routine 12/14/2023 3 :12 AM CDT POCT GLUCOSE DEVICE Routine 12/13/2023 1 1:29 PM CDT TRANSFUSE RED BLOOD CELLS Timed 12/13/2023 11:20 PM CDT POTASSIUM, WHOLE BLOOD STAT 12/13/2023 10:32 PM CDT PREPARE RBC Timed 12/13/2023 9:45 PM CDT EGFR Routine 12/13/2023 9:00 PM CDT PHOSPHORUS Routine 12/13/2023 9:00 PM CDT MAGNESIUM Routine 12/13/2023 9:00 PM CDT BASIC METABOLIC PANEL Routine 12/13/2023 9:00 PM CDT CBC WITHOUT DIFFERENTIAL Routine 12/13/2023 9:00 PM CDT POCT GLUCOSE DEVICE Routine 12/13/2023 8 :16 PM CDT POCT GLUCOSE DEVICE Routine 12/13/2023 4 :15 PM CDT EGFR STAT 12/13/2023 1:33 PM CDT DIFFERENTIAL AUTO STAT 12/13/2023 1:3 3 PM CDT BASIC METABOLIC PANEL STAT 12/13/2023 1:33 PM CDT CBC WITH AUTO DIFFERENTIAL STAT 12/13/2023 1:33 PM CDT POCT GLUCOSE DEVICE Routine 12/13/2023 1 2:14 PM CDT POCT GLUCOSE DEVICE Routine 12/13/2023 8 :25 AM CDT TRANSFUSE RED BLOOD CELLS Timed 12/13/2023 7:00 AM CDT ECG 12-LEAD Routine 12/13/2023 5:50 AM CDT POTASSIUM, WHOLE BLOOD Routine 12/13/2023 5:50 AM CDT TYPE AND SCREEN Timed 12/13/2023 4:58 AM CDT POCT GLUCOSE DEVICE Routine 12/13/2023 4 :55 AM CDT PREPARE RBC Timed 12/13/2023 4:19 AM CDT EGFR Routine 12/13/2023 3:08 AM CDT PHOSPHORUS Routine 12/13/2023 3:08 AM CDT MAGNESIUM Routine 12/13/2023 3:08 AM CDT CBC WITHOUT DIFFERENTIAL Routine 12/13/2023 3:08 AM CDT BASIC METABOLIC PANEL Routine 12/13/2023 3:08 AM CDT EGFR Routine 12/13/2023 2:11 AM CDT PHOSPHORUS Routine 12/13/2023 2:11 AM CDT MAGNESIUM Routine 12/13/2023 2:11 AM CDT BASIC METABOLIC PANEL Routine 12/13/2023 2:11 AM CDT CBC WITHOUT DIFFERENTIAL Routine 12/13/2023 2:11 AM CDT HEMOGLOBIN A1C Routine 12/09/2023 10:24 PM CDT LIPID PANEL STAT 08/07/2023 2:35 PM CDT ALBUMIN CREATININE RATIO, URINE Routine 02/23/2023 11:01 AM COGNOS LEAD Type 2 diabetes mellitus without complication, without long-term current use of insulin ([facility]/HCC) ([facility]) HM DIABETES EYE EXAM Routine 12/10/2022 from Last 3 Months or Most Recently Relevant to Health Maintenance Results * SCAN - RADIOLOGY/IMAGING (02/26/2024) Anatomical Region Laterality Modality Other Cuba Larsen MD Edited Result - Final * Cardiology Document Scan (02/17/2024 2:22 PM COGNOS LEAD) Anatomical Region Laterality Modality Other us Abhijit Devlin MD CV CARDIAC SERVICES PROCE DURES Final Result * Cardiology Document Scan (02/15/2024 2:18 PM COGNOS LEAD) Anatomical Region Laterality Modality Other us Magnolia Rico NP CV CARDIAC SERVICES PROCEDUR ES Final Result * Cardiology Document Scan (02/14/2024 6:35 PM [employer]GNOS LEAD) Anatomical Region Laterality Modality Other Catarino Ramirez MD CV CARDIAC SERVICES PROCEDU RES Final Result * SCAN - RADIOLOGY/IMAGING (02/13/2024) Anatomical Region Laterality Modality Other Cuba Larsen MD Edited Result - Final * Cardiology Document Scan (02/12/2024) Anatomical Region Laterality Modality Other Cuba Larsen MD CV CARDIAC SERVICES PROCEDURE S Final Result * SCAN - RADIOLOGY/IMAGING (02/11/2024) Anatomical Region Laterality Modality Other Cuba Larsen MD Edited Result - Final * SCAN - RADIOLOGY/IMAGING (02/10/2024) Anatomical Region Laterality Modality Other Cuba Larsen MD Edited Result - Final * XR Femur Left 2 or More Views (01/18/2024 2:34 PM [employer]GNOS LEAD) Anatomical Region Laterality Modality Lower Extremities, Thigh, Femur Left Computed Radiography 01/18/2024 2:47 PM [employer] LEAD Impressions 01/18/2024 2:47 PM [employer]GNOS LEAD 1. ??Healing internally fixated left femur intertrochanteric fracture. Electronically signed by: Rayray Matthews MD Narrative 01/18/2024 2:47 PM [employer]AD EXAMINATION: XR FEMUR LEFT 2 OR MORE VIEWS HISTORY: ??Fracture. FINDINGS: Comparison is made to 12/09/2023. Healing internally fixated left intertrochanteric fracture transfixed by dynamic hip screw with plate and screw construct. ??Hardware is intact. ??Unchanged distal femur resection with semiconstrained endoprosthetic knee arthroplasty. ??No periprosthetic fracture component migration. ??Mild left hip osteoarthritis. Procedure Note Rayray Matthews MD - 01/18/2024 EXAMINATION: XR FEMUR LEFT 2 OR MORE VIEWS HISTORY: Fracture. FINDINGS: Comparison is made to 12/09/2023. Healing internally fixated left intertrochanteric fracture transfixed by dynamic hip screw with plate and screw construct. Hardware is intact. Unchanged distal femur resection with semiconstrained endoprosthetic knee arthroplasty. No periprosthetic fracture component migration. Mild left hip osteoarthritis. IMPRESSION: 1. Healing internally fixated left femur intertrochanteric fracture. Electronically signed by: Rayray Matthews MD Homer Villalobos MD IMG XR PROCEDURE S Final Result * (ABNORMAL) POCT glucose (12/16/2023 5:11 PM CDT) Glucose, POC 282(H) 70 - 199 mg/dL Blood 12/16/2023 5:11 PM CDT 12/16/2023 5:11 PM CDT us Kevin Anne MD LAB POCT ORDERABLES - DEVICE Final Result MIND[facility] [place] [address] * (ABNORMAL) POCT glucose (12/16/2023 11:18 AM CDT) Glucose, POC 286(H) 70 - 199 mg/dL Blood 12/16/2023 11:1 8 AM CDT 12/16/2023 11:18 AM CDT Kevin Anne MD LAB POCT ORDERABLES - DEVICE Final Result Performing Organization Address [place]/[facility] Co de Phone Number [facility] [place] [address] * COVID-19 Coronavirus RNA Nasopharyngeal (12/16/2023 10:15 AM CDT) COVID-19 RNA Negative Negative [facility] Nasopharyngeal 12/16/2023 10 :15 AM CDT 12/16/2023 10:33 AM CDT Narrative [facility] - 12/16/2023 11:27 AM CDT Is the patient experiencing any symptoms consistent with COVID (eg. Fever, cough, shortness of breath)?->No What is the reason for testing?->Screening for post-acute care placement ??Interpretive data Testing performed by [facility] ([phone]). This test is performed using the [employer] Xpert Xpress CoV-2 plus assay. This is a real-time RT-PCR test intended for the qualitative detection of nucleic acid from the SARS-CoV-2. This assay has been cleared by the [place] Food and Drug administration. The performance characteristics have been verified by the [facility]. ??Results must be considered in the clinical context, and a negative result does not rule out infection. Interpretive data last revised 2023. us Danette Causey NP LAB MICROBIOLOGY - GENE RAL ORDERABLES Final Result Performing Organization Address [place]/[facility]/ZIP Co de Phone Number [facility] [place] [address] [facility] * Type and screen (12/16/2023 9:21 AM CDT) Gian, indirect Negative ABO Rh O Positive [facility] Blood 12/16/2023 9:21 AM CDT 12/16/2023 9:35 AM CDT Narrative [facility] - 12/16/2023 10:34 AM CDT Has the patient had Daratumumab or Isatuximab in the past 6 months?->Unknown Danette Causey NP LAB BLOOD BANK TEST ORD ERABLES Final Result Performing Organization Address [place]/[facility]/ZIP Co de Phone Number [facility] [place] [address] * (ABNORMAL) CBC without differential (12/16/2023 8:20 AM CDT) [facility] WBC 8.5 3.8 - 9.9 K/cumm Hgb 7.7(L) 11.9 - 15.5 g/dL [facility] Hct 23.4(L) 35.6 - 45.5 % [facility] Plt 237 150 - 400 K/cumm [facility] MPV 9.7 9.1 - 12.3 fL [facility] RBC 2.43(L) 3.90 - 5.20 M/cumm [facility] MCV 96.3 81.3 - 96.4 fL [facility] MCH 31.7 27.1 - 33.3 pg [facility] MCHC 32.9 32.3 - 35.7 g/dL [facility] RDW CV 15.4(H) 11.1 - 14.9 % [facility] RDW SD 52.3(H) 35.7 - 48.1 fL [facility] NRBC abs 0.06(H) 0.00 - 0.01 K/cumm [facility] Blood 12/16/2023 8:20 AM CDT 12/16/2023 8:29 AM CDT Danette Causey [employer] LAB BLOOD ORDERABLES Fi nal Result Performing Organization Address City/[facility]/ZIP Co de Phone Number [facility] [place] [address] * Mislabeled Test (12/16/2023 8:14 AM CDT) Location Other location Reason Label discrepancy [facility] Mislabel resolution Testing canceled [facility] Blood 12/16/2023 8:14 AM CDT 12/16/2023 8:30 AM CDT Kevin Anne MD LAB BLOOD ORDERABLES F inal Result Performing Organization Address City/[facility] Co de Phone Number [facility] [place] [address] * POCT glucose (12/16/2023 7:50 AM CDT) Glucose, POC 176 70 - 199 mg/dL Blood 12/16/2023 7:50 AM CDT 12/16/2023 7:50 AM CDT Kevin Anne MD LAB POCT ORDERABLES - DEVICE Final Result Performing Organization Address [place]/[facility] de Phone Number [facility] [place] [address] * Potassium, whole blood (12/15/2023 11:54 PM CDT) Potassium, bld 4.8 3.3 - 4.9 mmol/L Blood 12/15/2023 11:5 4 PM CDT 12/16/2023 12:07 AM CDT Kevin Anne MD LAB BLOOD ORDERABLES F inal Result Performing Organization Address [place]/[facility] Co de Phone Number [facility] [place] [address] * (ABNORMAL) POCT glucose (12/15/2023 9:08 PM CDT) Glucose, POC 223(H) 70 - 199 mg/dL Blood 12/15/2023 9:08 PM CDT 12/15/2023 9:08 PM CDT us Kevin Anne MD LAB POCT ORDERABLES - DEVICE Final Result Performing Organization Address [place]/[facility] Co de Phone Number [facility] [place] [address] * eGFR (12/15/2023 8:48 PM CDT) eGFR 89 >=60 mL/min/1. 73 m2 Comment: Interpretive Data Reference Interval Normal ?>/= 90 mL/min/1.73m2 Mildly decreased* ? 60 - 89 mL/min/1.73m2 Mildly to moderately decreased ?45 - 59 mL/min/1.73m2 Moderately to severely decreased ??30 - 44 mL/min/1.73m2 Severely decreased ?15 - 29 mL/min/1.73m2 Kidney Failure ?< 15 ??mL/min/1.73m2 *Relative to young adult level Estimated glomerular filtration rate is determined by the 2020 CKD-EPI equation recommended by the National Kidney Foundation (A Unifying Approach to GFR Estimation: Recommendations of the NKF-ASK Task Force on Reassessing the Inclusion of Race in Diagnosing Kidney Disease, JASN 2020). The CKD-EPI equation should not be used for patients with unstable renal function and has not been validated in children and those over 70. Current interpretive data was last reviewed 2021. Blood 12/15/2023 8:48 PM CDT 12/15/2023 9:05 PM CDT Kevin Anne MD LAB BLOOD ORDERABLES F inal Result Performing Organization Address City/[facility]/ZIP Co de Phone Number [facility] [place] [address] * (ABNORMAL) CBC without differential (12/15/2023 8:48 PM CDT) [facility] WBC 7.8 3.8 - 9.9 K/cumm Hgb 7.7(L) 11.9 - 15.5 g/dL [facility] Hct 24.0(L) 35.6 - 45.5 % [facility] Plt 220 150 - 400 K/cumm [facility] MPV 9.6 9.1 - 12.3 fL [facility] RBC 2.51(L) 3.90 - 5.20 M/cumm [facility] MCV 95.6 81.3 - 96.4 fL [facility] MCH 30.7 27.1 - 33.3 pg [facility] MCHC 32.1(L) 32.3 - 35.7 g/dL [facility] RDW CV 15.4(H) 11.1 - 14.9 % [facility] RDW SD 51.8(H) 35.7 - 48.1 fL [facility] NRBC abs 0.08(H) 0.00 - 0.01 K/cumm [facility] Blood 12/15/2023 8:48 PM CDT 12/15/2023 9:05 PM CDT Kevin Anne MD LAB BLOOD ORDERABLES F inal Result [facility] [place] [address] * Phosphorus (12/15/2023 8:48 PM CDT) [facility] Phosphorus, pl 3.5 2.3 - 4.5 mg/dL Blood 12/15/2023 8:48 PM CDT 12/15/2023 9:05 PM CDT us Kevin Anne MD LAB BLOOD ORDERABLES F inal Result Performing Organization Address City/[facility]/ZIP Co de Phone Number [facility] [place] [address] * Magnesium (12/15/2023 8:48 PM CDT) [facility] Magnesium 2.0 1.4 - 2.5 mg/dL Blood 12/15/2023 8:48 PM CDT 12/15/2023 9:05 PM CDT Kevin Anne MD LAB BLOOD ORDERABLES F inal Result Performing Organization Address [place]/[facility] de [facility] [place] [address] * (ABNORMAL) Basic metabolic panel (12/15/2023 8:48 PM CDT) [facility] Sodium 129(L) 135 - 145 mmol/L Potassium, pl 5.3(H) 3.3 - 4.9 mmol/L [facility] Chloride 95(L) 97 - 110 mmol/L [facility] CO2 27 22 - 32 mmol/L [facility] Anion gap 7 2 - 15 mmol/L [facility] BUN 26(H) 6 - 25 mg/dL [facility] Creatinine 0.62 0.60 - 1.10 mg/dL [facility] Glucose 214(H) 70 - 199 mg/dL [facility] Comment: Interpretive Data Fasting glucose >/= 126 mg/dl is diagnostic for diabetes. ?? Fasting is defined as no caloric intake for at least 8 hours. Fasting glucose between 100 mg/dl to 125 mg/dl is diagnostic of prediabetes. In a patient with classic symptoms of hyperglycemia or hyperglycemic crisis, a random glucose >/= 200 mg/dl is diagnostic for diabetes. In the absence of unequivocal hyperglycemia, results should be confirmed by repeat testing. The classification and Diagnosis of Diabetes Diabetes Care 2021; 46: S19-S40. Current interpretive data was last revised 2022. Calcium 9.1 8.5 - 10.3 mg/dL [facility] Blood 12/15/2023 8:48 PM CDT 12/15/2023 9:05 PM CDT Kevin Anne MD LAB BLOOD ORDERABLES F inal Result Performing Organization Address City/[facility] Co de Phone Number [facility] [place] [address] * POCT glucose (12/15/2023 5:43 PM CDT) Glucose, POC 196 70 - 199 mg/dL Blood 12/15/2023 5:43 PM CDT 12/15/2023 5:43 PM CDT Kevin Anne MD LAB POCT ORDERABLES - DEVICE Final Result Performing Organization Address City/[facility] Co de Phone Number [facility] [place] [address] * (ABNORMAL) POCT glucose (12/15/2023 11:37 AM CDT) Glucose, POC 240(H) 70 - 199 mg/dL Blood 12/15/2023 11:3 7 AM CDT 12/15/2023 11:37 AM CDT Kevin Anne MD LAB POCT ORDERABLES - DEVICE Final Result Performing Organization Address City/[facility] Co de Phone Number [facility] [place] [address] * POCT glucose (12/15/2023 7:47 AM CDT) Glucose, POC 183 70 - 199 mg/dL Blood 12/15/2023 7:47 AM CDT 12/15/2023 7:47 AM CDT Keivn Anne MD LAB POCT ORDERABLES - DEVICE Final Result Performing Organization Address City/[facility] Co de Phone Number [facility] [place] [address] * (ABNORMAL) Potassium, whole blood (12/15/2023 12:25 AM CDT) Potassium, bld 5.0(H) 3.3 - 4.9 mmol/L Blood 12/15/2023 12:2 5 AM CDT 12/15/2023 12:35 AM CDT Kevin Anne MD LAB BLOOD ORDERABLES F inal Result Performing Organization Address [place]/[facility] Co de Phone Number [facility] [place] [address] * eGFR (12/14/2023 9:51 PM CDT) eGFR >90 >=60 mL/min/1. 73 m2 Comment: Interpretive Data Reference Interval Normal ?>/= 90 mL/min/1.73m2 Mildly decreased* ? 60 - 89 mL/min/1.73m2 Mildly to moderately decreased ?45 - 59 mL/min/1.73m2 Moderately to severely decreased ??30 - 44 mL/min/1.73m2 Severely decreased ?15 - 29 mL/min/1.73m2 Kidney Failure ?< 15 ??mL/min/1.73m2 *Relative to young adult level Estimated glomerular filtration rate is determined by the 2020 CKD-EPI equation recommended by the National Kidney Foundation (A Unifying Approach to GFR Estimation: Recommendations of the NKF-ASK Task Force on Reassessing the Inclusion of Race in Diagnosing Kidney Disease, JASN 202). The CKD-EPI equation should not be used for patients with unstable renal function and has not been validated in children and those over 70. Current interpretive data was last reviewed 2021. Blood 12/14/2023 9:51 PM CDT 12/14/2023 10:27 PM CDT Kevin Anne MD LAB BLOOD ORDERABLES F inal Result Performing Organization Address [place]/[facility] Co de Phone Number [facility] [place] [address] * (ABNORMAL) POCT glucose (12/14/2023 9:51 PM CDT) [facility] Glucose, POC 200(H) 70 - 199 mg/dL Blood 12/14/2023 9:51 PM CDT 12/14/2023 9:51 PM CDT Kevin Anne MD LAB POCT ORDERABLES - DEVICE Final Result Performing Organization Address [place]/[facility] Co de Phone Number [facility] [place] [address] * (ABNORMAL) CBC without differential (12/14/2023 9:51 PM CDT) [facility] WBC 7.3 3.8 - 9.9 K/cumm Hgb 8.3(L) 11.9 - 15.5 g/dL [facility] Hct 24.9(L) 35.6 - 45.5 % [facility] Plt 177 150 - 400 K/cumm [facility] MPV 9.6 9.1 - 12.3 fL [facility] RBC 2.63(L) 3.90 - 5.20 M/cumm [facility] MCV 94.7 81.3 - 96.4 fL [facility] MCH 31.6 27.1 - 33.3 pg [facility] MCHC 33.3 32.3 - 35.7 g/dL [facility] RDW CV 15.4(H) 11.1 - 14.9 % [facility] RDW SD 51.4(H) 35.7 - 48.1 fL [facility] NRBC abs 0.04(H) 0.00 - 0.01 K/cumm [facility] Blood 12/14/2023 9:51 PM CDT 12/14/2023 10:27 PM CDT Result [facility] Kevin Anne MD LAB BLOOD ORDERABLES F inal Result Performing Organization Address City/[facility]/ZIP Co de Phone Number [facility] [place] [address] * Phosphorus (12/14/2023 9:51 PM CDT) Phosphorus, pl 2.4 2.3 - 4.5 mg/dL Blood 12/14/2023 9:51 PM CDT 12/14/2023 10:27 PM CDT Result [facility] Kevin Anne MD LAB BLOOD ORDERABLES F inal Result Performing Organization Address City/[facility] Co de Phone Number [facility] [place] [address] * Magnesium (12/14/2023 9:51 PM CDT) Magnesium 2.1 1.4 - 2.5 mg/dL Blood 12/14/2023 9:51 PM CDT 12/14/2023 10:27 PM CDT Result [facility] Kevin Anne MD LAB BLOOD ORDERABLES F inal Result [facility] [place] [address] * (ABNORMAL) Basic metabolic panel (12/14/2023 9:51 PM CDT) Sodium 128(L) 135 - 145 mmol/L Potassium, pl 5.3(H) 3.3 - 4.9 mmol/L [facility] Chloride 97 97 - 110 mmol/L [facility] CO2 28 22 - 32 mmol/L [facility] Anion gap 3 2 - 15 mmol/L [facility] BUN 21 6 - 25 mg/dL [facility] Creatinine 0.53(L) 0.60 - 1.10 mg/dL [facility] Glucose 180 70 - 199 mg/dL [facility] Comment: Interpretive Data Fasting glucose >/= 126 mg/dl is diagnostic for diabetes. ?? Fasting is defined as no caloric intake for at least 8 hours. Fasting glucose between 100 mg/dl to 125 mg/dl is diagnostic of prediabetes. In a patient with classic symptoms of hyperglycemia or hyperglycemic crisis, a random glucose >/= 200 mg/dl is diagnostic for diabetes. In the absence of unequivocal hyperglycemia, results should be confirmed by repeat testing. The classification and Diagnosis of Diabetes Diabetes Care 2021; 46: S19-S40. Current interpretive data was last revised 2022. Calcium 8.9 8.5 - 10.3 mg/dL [facility] Blood 12/14/2023 9:51 PM CDT 12/14/2023 10:27 PM CDT Kevin Anne MD LAB BLOOD ORDERABLES F inal Result [facility] [place] [address] * POCT glucose (12/14/2023 5:25 PM CDT) Glucose, POC 173 70 - 199 mg/dL Blood 12/14/2023 5:25 PM CDT 12/14/2023 5:25 PM CDT Kevin Anne MD LAB POCT ORDERABLES - DEVICE Final Result Performing Organization Address City/[facility]/ZIP Co de Phone Number [facility] [place] [address] * (ABNORMAL) POCT glucose (12/14/2023 11:51 AM CDT) [facility] Glucose, POC 267(H) 70 - 199 mg/dL Blood 12/14/2023 11:5 1 AM CDT 12/14/2023 11:51 AM CDT Kevin Anne MD LAB POCT ORDERABLES - DEVICE Final Result Performing Organization Address [place]/[facility] Co de Phone Number [facility] [place] [address] * (ABNORMAL) POCT glucose (12/14/2023 8:16 AM CDT) [facility] Glucose, POC 200(H) 70 - 199 mg/dL Blood 12/14/2023 8:16 AM CDT 12/14/2023 8:16 AM CDT us Kevin Anne MD LAB POCT ORDERABLES - DEVICE Final Result Performing Organization Address City/[facility] Co de Phone Number [facility] [place] [address] * (ABNORMAL) CBC without differential (12/14/2023 3:20 AM CDT) [facility] WBC 7.5 3.8 - 9.9 K/cumm Hgb 8.1(L) 11.9 - 15.5 g/dL [facility] Hct 24.8(L) 35.6 - 45.5 % [facility] Plt 170 150 - 400 K/cumm [facility] MPV 10.1 9.1 - 12.3 fL [facility] RBC 2.63(L) 3.90 - 5.20 M/cumm [facility] MCV 94.3 81.3 - 96.4 fL [facility] MCH 30.8 27.1 - 33.3 pg [facility] MCHC 32.7 32.3 - 35.7 g/dL [facility] RDW CV 15.0(H) 11.1 - 14.9 % [facility] RDW SD 50.9(H) 35.7 - 48.1 fL [facility] NRBC abs 0.02(H) 0.00 - 0.01 K/cumm [facility] Blood 12/14/2023 3:20 AM CDT 12/14/2023 4:09 AM CDT Narrative [facility] - 12/14/2023 4:16 AM CDT 1 hour after transfusion of red blood cells is complete Kevin Anne MD LAB BLOOD ORDERABLES F inal Result Performing Organization Address City/[facility]/ZIP Co de Phone Number [facility] [place] [address] * POCT glucose (12/14/2023 3:12 AM CDT) [facility] Glucose, POC 170 70 - 199 mg/dL Blood 12/14/2023 3:12 AM CDT 12/14/2023 3:12 AM CDT Kevin Anne MD LAB POCT ORDERABLES - DEVICE Final Result [facility] [place] [address] * Transfuse RBC (12/14/2023 2:21 AM CDT) Blood Kevin Anne MD BLOOD TRANSFUSION ORDE RABLES Final Result [facility] [place] [address] * POCT glucose (12/13/2023 11:29 PM CDT) [facility] Glucose, POC 185 70 - 199 mg/dL Blood 12/13/2023 11:2 9 PM CDT 12/13/2023 11:29 PM CDT Kevin Anne MD LAB POCT ORDERABLES - DEVICE Final Result Performing Organization Address City/[facility] Co de Phone Number [facility] [place] [address] * (ABNORMAL) Potassium, whole blood (12/13/2023 10:32 PM CDT) [facility] Potassium, bld 5.1(H) 3.3 - 4.9 mmol/L Blood 12/13/2023 10:3 2 PM CDT 12/13/2023 10:45 PM CDT Result [facility] Kevin Anne MD LAB BLOOD ORDERABLES F inal Result Performing Organization Address [place]/[facility] de Phone Number [facility] [place] [address] * Prepare RBC: 1 Units (12/13/2023 9:45 PM CDT) [facility] Product code [id number] Unit Number [id number] M [facility] Product Blood Type OPOS [facility] Dispense Status PRESUMED TRANSFUSED [facility] Blood 12/13/2023 9:45 PM CDT 12/13/2023 9:45 PM CDT Narrative [facility] - 12/14/2023 11:10 AM CDT Are special requirements needed? (All products are leukoreduced and CMV- safe)- >No Date required:-[id number] LRRBC # of [id number] Reasons:-Hgb <7 g/dL} Kevin Anne MD BLOOD BANK PRODUCT ORD ERABLES Final Result Performing Organization Address [place]/[facility] Co de Phone Number [facility] [place] [address] * eGFR (12/13/2023 9:00 PM CDT) eGFR 89 >=60 mL/min/1. 73 m2 Comment: Interpretive Data Reference Interval Normal ?>/= 90 mL/min/1.73m2 Mildly decreased* ? 60 - 89 mL/min/1.73m2 Mildly to moderately decreased ?45 - 59 mL/min/1.73m2 Moderately to severely decreased ??30 - 44 mL/min/1.73m2 Severely decreased ?15 - 29 mL/min/1.73m2 Kidney Failure ?< 15 ??mL/min/1.73m2 *Relative to young adult level Estimated glomerular filtration rate is determined by the 2020 CKD-EPI equation recommended by the National Kidney Foundation (A Unifying Approach to GFR Estimation: Recommendations of the NKF-ASK Task Force on Reassessing the Inclusion of Race in Diagnosing Kidney Disease, JASN 202). The CKD-EPI equation should not be used for patients with unstable renal function and has not been validated in children and those over 70. Current interpretive data was last reviewed 2021. Blood 12/13/2023 9:00 PM CDT 12/13/2023 9:22 PM CDT Kevin Anne MD LAB BLOOD ORDERABLES F inal Result Performing Organization Address [place]/[facility] Co de Phone Number [facility] [place] [address] * (ABNORMAL) CBC without differential (12/13/2023 9:00 PM CDT) Pathologist [facility] WBC 7.4 3.8 - 9.9 K/cumm Hgb 7.0(L) 11.9 - 15.5 g/dL [facility] Hct 21.3(L) 35.6 - 45.5 % [facility] Plt 158 150 - 400 K/cumm [facility] MPV 9.9 9.1 - 12.3 fL [facility] RBC 2.23(L) 3.90 - 5.20 M/cumm [facility] MCV 95.5 81.3 - 96.4 fL [facility] MCH 31.4 27.1 - 33.3 pg [facility] MCHC 32.9 32.3 - 35.7 g/dL [facility] RDW CV 14.9 11.1 - 14.9 % [facility] RDW SD 51.1(H) 35.7 - 48.1 fL [facility] NRBC abs 0.02(H) 0.00 - 0.01 K/cumm [facility] Blood 12/13/2023 9:00 PM CDT 12/13/2023 9:22 PM CDT Kevin Anne MD LAB BLOOD ORDERABLES F inal Result Performing Organization Address [place]/[facility] Co de Phone Number [facility] [place] [address] * (ABNORMAL) Phosphorus (12/13/2023 9:00 PM CDT) Pathologist [facility] Phosphorus, pl 2.1(L) 2.3 - 4.5 mg/dL Blood 12/13/2023 9:00 PM CDT 12/13/2023 9:22 PM CDT Kevin Anne MD LAB BLOOD ORDERABLES F inal Result Performing Organization Address City/[facility]/ZIP Co de Phone Number [facility] [place] [address] * Magnesium (12/13/2023 9:00 PM CDT) Pathologist [facility] Magnesium 1.7 1.4 - 2.5 mg/dL Blood 12/13/2023 9:00 PM CDT 12/13/2023 9:22 PM CDT Kevin Anne MD LAB BLOOD ORDERABLES F inal Result [facility] [place] [address] * (ABNORMAL) Basic metabolic panel (12/13/2023 9:00 PM CDT) Pathologist [facility] Sodium 131(L) 135 - 145 mmol/L Potassium, pl 5.3(H) 3.3 - 4.9 mmol/L [facility] Chloride 101 97 - 110 mmol/L [facility] CO2 26 22 - 32 mmol/L [facility] Anion gap 4 2 - 15 mmol/L [facility] BUN 28(H) 6 - 25 mg/dL [facility] Creatinine 0.61 0.60 - 1.10 mg/dL [facility] Glucose 184 70 - 199 mg/dL [facility] Comment: Interpretive Data Fasting glucose >/= 126 mg/dl is diagnostic for diabetes. ?? Fasting is defined as no caloric intake for at least 8 hours. Fasting glucose between 100 mg/dl to 125 mg/dl is diagnostic of prediabetes. In a patient with classic symptoms of hyperglycemia or hyperglycemic crisis, a random glucose >/= 200 mg/dl is diagnostic for diabetes. In the absence of unequivocal hyperglycemia, results should be confirmed by repeat testing. The classification and Diagnosis of Diabetes Diabetes Care 2021; 46: S19-S40. Current interpretive data was last revised 2022. Calcium 8.5 8.5 - 10.3 mg/dL [facility] Blood 12/13/2023 9:00 PM CDT 12/13/2023 9:22 PM CDT Kevin Anne MD LAB BLOOD ORDERABLES F inal Result Performing Organization Address [place]/[facility] de Phone Number [facility] [place] [address] * POCT glucose (12/13/2023 8:16 PM CDT) Glucose, POC 183 70 - 199 mg/dL Blood 12/13/2023 8:16 PM CDT 12/13/2023 8:16 PM CDT Kevin Anne MD LAB POCT ORDERABLES - DEVICE Final Result Performing Organization Address [place]/[facility] de Phone Number [facility] [place] [address] * POCT glucose (12/13/2023 4:15 PM CDT) Glucose, POC 192 70 - 199 mg/dL Blood 12/13/2023 4:15 PM CDT 12/13/2023 4:15 PM CDT Kevin Anne MD LAB POCT ORDERABLES - DEVICE Final Result Performing Organization Address [place]/[facility] de Phone Number [facility] [place] [address] * eGFR (12/13/2023 1:33 PM CDT) eGFR 89 >=60 mL/min/1. 73 m2 Comment: Interpretive Data Reference Interval Normal ?>/= 90 mL/min/1.73m2 Mildly decreased* ? 60 - 89 mL/min/1.73m2 Mildly to moderately decreased ?45 - 59 mL/min/1.73m2 Moderately to severely decreased ??30 - 44 mL/min/1.73m2 Severely decreased ?15 - 29 mL/min/1.73m2 Kidney Failure ?< 15 ??mL/min/1.73m2 *Relative to young adult level Estimated glomerular filtration rate is determined by the 2020 CKD-EPI equation recommended by the National Kidney Foundation (A Unifying Approach to GFR Estimation: Recommendations of the NKF-ASK Task Force on Reassessing the Inclusion of Race in Diagnosing Kidney Disease, JASN 202). The CKD-EPI equation should not be used for patients with unstable renal function and has not been validated in children and those over 70. Current interpretive data was last reviewed 2021. Blood 12/13/2023 1:33 PM CDT 12/13/2023 1:49 PM CDT Parris Soto [employer] LAB BLOOD ORDERABLES Final Result [facility] [place] [address] * Differential, auto (12/13/2023 1:33 PM CDT) Pathologist [facility] Neutrophil abs 5.1 1.5 - 6.5 K/cumm Imm gran abs 0.1 0.0 - 0.1 K/cumm [facility] Lymphocyte abs 1.3 0.8 - 3.3 K/cumm [facility] Monocyte abs 0.6 0.2 - 0.8 K/cumm [facility] Eosinophil abs 0.0 0.0 - 0.5 K/cumm [facility] Basophil abs 0.0 0.0 - 0.1 K/cumm [facility] Neutrophil pct 71.9 % [facility] Comment: Interpretive Data Percent cell count reference ranges are not reported, since discordance with absolute values may lead to misinterpretation of CBC data. Current Interpretive Data was last revised on 2017. Imm gran pct 0.7 % [facility] Comment: Interpretive Data Percent cell count reference ranges are not reported, since discordance with absolute values may lead to misinterpretation of CBC data. Current Interpretive Data was last revised on 2017. Lymphocyte pct 19.0 % [facility] Comment: Interpretive Data Percent cell count reference ranges are not reported, since discordance with absolute values may lead to misinterpretation of CBC data. Current Interpretive Data was last revised on 2017. Monocyte pct 7.8 % [facility] Comment: Interpretive Data Percent cell count reference ranges are not reported, since discordance with absolute values may lead to misinterpretation of CBC data. Current Interpretive Data was last revised on 2017. Eosinophil pct 0.3 % [facility] Comment: Interpretive Data Percent cell count reference ranges are not reported, since discordance with absolute values may lead to misinterpretation of CBC data. Current Interpretive Data was last revised on 2017. Basophil pct 0.3 % [facility] Comment: Interpretive Data Percent cell count reference ranges are not reported, since discordance with absolute values may lead to misinterpretation of CBC data. Current Interpretive Data was last revised on 2017. Blood 12/13/2023 1:33 PM CDT 12/13/2023 1:49 PM CDT Parris Soto NP LAB BLOOD ORDERABLES Final Result [facility] [place] [address] * (ABNORMAL) CBC with auto differential (12/13/2023 1:33 PM CDT) WBC 7.1 3.8 - 9.9 K/cumm Hgb 7.1(L) 11.9 - 15.5 g/dL [facility] Hct 21.9(L) 35.6 - 45.5 % [facility] Plt 166 150 - 400 K/cumm [facility] MPV 9.8 9.1 - 12.3 fL [facility] RBC 2.26(L) 3.90 - 5.20 M/cumm [facility] MCV 96.9(H) 81.3 - 96.4 fL [facility] MCH 31.4 27.1 - 33.3 pg [facility] MCHC 32.4 32.3 - 35.7 g/dL [facility] RDW CV 14.9 11.1 - 14.9 % [facility] RDW SD 52.4(H) 35.7 - 48.1 fL [facility] NRBC abs 0.02(H) 0.00 - 0.01 K/cumm [facility] Blood 12/13/2023 1:33 PM CDT 12/13/2023 1:49 PM CDT Parris Soto NP LAB BLOOD ORDERABLES Final Result [facility] [place] [address] * (ABNORMAL) Basic metabolic panel (12/13/2023 1:33 PM CDT) Sodium 132(L) 135 - 145 mmol/L Potassium, pl 5.0(H) 3.3 - 4.9 mmol/L [facility] Chloride 97 97 - 110 mmol/L [facility] CO2 26 22 - 32 mmol/L [facility] Anion gap 9 2 - 15 mmol/L [facility] BUN 31(H) 6 - 25 mg/dL [facility] Creatinine 0.63 0.60 - 1.10 mg/dL [facility] Glucose 207(H) 70 - 199 mg/dL [facility] Comment: Interpretive Data Fasting glucose >/= 126 mg/dl is diagnostic for diabetes. ?? Fasting is defined as no caloric intake for at least 8 hours. Fasting glucose between 100 mg/dl to 125 mg/dl is diagnostic of prediabetes. In a patient with classic symptoms of hyperglycemia or hyperglycemic crisis, a random glucose >/= 200 mg/dl is diagnostic for diabetes. In the absence of unequivocal hyperglycemia, results should be confirmed by repeat testing. The classification and Diagnosis of Diabetes Diabetes Care 202; 46: S19-S40. Current interpretive data was last revised 2022. Calcium 8.6 8.5 - 10.3 mg/dL [facility] Blood 12/13/2023 1:33 PM CDT 12/13/2023 1:49 PM CDT Parris Soto [employer] LAB BLOOD ORDERABLES Final Result Performing Organization Address City/[facility] Co de Phone Number [facility] [place] [address] * (ABNORMAL) POCT glucose (12/13/2023 12:14 PM CDT) Glucose, POC 212(H) 70 - 199 mg/dL Blood 12/13/2023 12:1 4 PM CDT 12/13/2023 12:14 PM CDT Kevin Anne MD LAB POCT ORDERABLES - DEVICE Final Result Performing Organization Address [place]/[facility] Co de Phone Number [facility] [place] [address] * Transfuse RBC (12/13/2023 9:49 AM CDT) Blood Kevin Anne MD BLOOD TRANSFUSION ORDE [facility] Final Result Performing Organization Address [place]/[facility] Co de Phone Number [facility] [place] [address] * POCT glucose (12/13/2023 8:25 AM CDT) Glucose, POC 175 70 - 199 mg/dL Blood 12/13/2023 8:25 AM CDT 12/13/2023 8:25 AM CDT Kevin Anne MD LAB POCT ORDERABLES - DEVICE Final Result [facility] [place] [address] * ECG 12 lead (12/13/2023 5:50 AM CDT) Pathologist [facility] Ventricular Rate EKG/Min 119 BPM [facility] Atrial Rate [address] [facility] QRS-Interval (MSEC) [address] [facility] QT-Interval (MSEC) [address] [facility] QTc [address] [facility] R [place] [address] [facility] T [place] -[address] [facility] Diagnosis Atrial fibrillation with rapid ventricular response Cannot rule out Inferior infarct , age undetermined Abnormal ECG When compared with ECG of 12-DEC-2023 05:53, ST elevation now present in Inferior leads Confirmed by GREGORY CLINE M.D ([id number]) on 12/14/2023 12:31:[address] [facility] 12/13/2023 5:50 AM CDT 12/14/2023 12:31 PM CDT us Kevin Anne MD ECG ORDERABLES Final Result Performing Organization Address [place]/[facility] de Phone Number [facility] * (ABNORMAL) Potassium, whole blood (12/13/2023 5:50 AM CDT) Pathologist [facility] Potassium, bld 5.0(H) 3.3 - 4.9 mmol/L Blood 12/13/2023 5:50 AM CDT 12/13/2023 5:56 AM CDT us Alia Ibarra MD LAB BLOOD ORDERABLES Final Resul t Performing Organization Address [place]/[facility] Co de Phone Number [facility] [place] [address] * Type and screen (12/13/2023 4:58 AM CDT) ABO Rh O Positive Gian, indirect Negative [facility] Blood 12/13/2023 4:58 AM CDT 12/13/2023 5:12 AM CDT Narrative [facility] - 12/13/2023 6:03 AM CDT Has the patient had Daratumumab or Isatuximab in the past 6 months?->Unknown Kevin Anne MD LAB BLOOD BANK TEST OR DERABLES Final Result Performing Organization Address City/[facility]/ZIP Co de Phone Number [facility] [place] [address] * POCT glucose (12/13/2023 4:55 AM CDT) Pathologist [facility] Glucose, POC 194 70 - 199 mg/dL Blood 12/13/2023 4:55 AM CDT 12/13/2023 4:55 AM CDT Kevin Anne MD LAB POCT ORDERABLES - DEVICE Final Result Performing Organization Address [place]/[facility] de Phone Number [facility] [place] [address] * Prepare RBC: 1 Units (12/13/2023 4:19 AM CDT) Pathologist [facility] Product code [id number] Unit Number [id number] [facility] Product Blood Type OPOS [facility] Dispense Status PRESUMED TRANSFUSED [facility] Blood 12/13/2023 4:19 AM CDT 12/13/2023 4:21 AM CDT Narrative [facility] - 12/14/2023 11:27 AM CDT Are special requirements needed? (All products are leukoreduced and CMV- safe)- >No Date required:-[id number] LRRBC # of [id number] Reasons:-Hgb <7 g/dL} Kevin Anne MD BLOOD BANK PRODUCT ORD ERABLES Final Result Performing Organization Address City/[facility] Co de Phone Number [facility] [place] [address] * eGFR (12/13/2023 3:08 AM CDT) Pathologist [facility] eGFR 89 >=60 mL/min/1. 73 m2 Comment: Interpretive Data Reference Interval Normal ?>/= 90 mL/min/1.73m2 Mildly decreased* ? 60 - 89 mL/min/1.73m2 Mildly to moderately decreased ?45 - 59 mL/min/1.73m2 Moderately to severely decreased ??30 - 44 mL/min/1.73m2 Severely decreased ?15 - 29 mL/min/1.73m2 Kidney Failure ?< 15 ??mL/min/1.73m2 *Relative to young adult level Estimated glomerular filtration rate is determined by the 2020 CKD-EPI equation recommended by the National Kidney Foundation (A Unifying Approach to GFR Estimation: Recommendations of the NKF-ASK Task Force on Reassessing the Inclusion of Race in Diagnosing Kidney Disease, JASN 2020). The CKD-EPI equation should not be used for patients with unstable renal function and has not been validated in children and those over 70. Current interpretive data was last reviewed 2021. Blood 12/13/2023 3:08 AM CDT 12/13/2023 3:29 AM CDT us Alia Ibarra MD LAB BLOOD ORDERABLES Final Resul t [facility] [place] [address] * (ABNORMAL) CBC without differential (12/13/2023 3:08 AM CDT) [facility] WBC 7.2 3.8 - 9.9 K/cumm Hgb 6.2(C) 11.9 - 15.5 g/dL [facility] Comment:Consistent with prev ious results Hct 19.4(L) 35.6 - 45.5 % [facility] Plt 168 150 - 400 K/cumm [facility] MPV 10.6 9.1 - 12.3 fL [facility] RBC 2.00(L) 3.90 - 5.20 M/cumm [facility] MCV 97.0(H) 81.3 - 96.4 fL [facility] MCH 31.0 27.1 - 33.3 pg [facility] MCHC 32.0(L) 32.3 - 35.7 g/dL [facility] RDW CV 14.8 11.1 - 14.9 % [facility] RDW SD 51.5(H) 35.7 - 48.1 fL [facility] NRBC abs 0.00 0.00 - 0.01 K/cumm [facility] Blood 12/13/2023 3:08 AM CDT 12/13/2023 3:30 AM CDT us Alia Ibarra MD LAB BLOOD ORDERABLES Final Resul t [facility] [place] [address] * (ABNORMAL) Phosphorus (12/13/2023 3:08 AM CDT) Phosphorus, pl 1.5(L) 2.3 - 4.5 mg/dL Blood 12/13/2023 3:08 AM CDT 12/13/2023 3:29 AM CDT us Alia Ibarra MD LAB BLOOD ORDERABLES Final Resul t [facility] [place] [address] * Magnesium (12/13/2023 3:08 AM CDT) Pathologist [facility] Magnesium 1.8 1.4 - 2.5 mg/dL Blood 12/13/2023 3:08 AM CDT 12/13/2023 3:29 AM CDT Alia Ibarra MD LAB BLOOD ORDERABLES Final Resul t Performing Organization Address [place]/[facility] Co de Phone Number [facility] [place] [address] * (ABNORMAL) Basic metabolic panel (12/13/2023 3:08 AM CDT) Pathologist [facility] Sodium 136 135 - 145 mmol/L Potassium, pl 5.4(H) 3.3 - 4.9 mmol/L [facility] Chloride 102 97 - 110 mmol/L [facility] CO2 28 22 - 32 mmol/L [facility] Anion gap 6 2 - 15 mmol/L [facility] BUN 28(H) 6 - 25 mg/dL [facility] Creatinine 0.63 0.60 - 1.10 mg/dL [facility] Glucose 168 70 - 199 mg/dL [facility] Comment: Interpretive Data Fasting glucose >/= 126 mg/dl is diagnostic for diabetes. ?? Fasting is defined as no caloric intake for at least 8 hours. Fasting glucose between 100 mg/dl to 125 mg/dl is diagnostic of prediabetes. In a patient with classic symptoms of hyperglycemia or hyperglycemic crisis, a random glucose >/= 200 mg/dl is diagnostic for diabetes. In the absence of unequivocal hyperglycemia, results should be confirmed by repeat testing. The classification and Diagnosis of Diabetes Diabetes Care 2021; 46: S19-S40. Current interpretive data was last revised 2022. Calcium 8.7 8.5 - 10.3 mg/dL [facility] Blood 12/13/2023 3:08 AM CDT 12/13/2023 3:29 AM CDT Alia Ibarra MD LAB BLOOD ORDERABLES Final Resul t Performing Organization Address [place]/[facility] Co de Phone Number [facility] [place] [address] * eGFR (12/13/2023 2:11 AM CDT) eGFR 89 >=60 mL/min/1. 73 m2 Comment: Interpretive Data Reference Interval Normal ?>/= 90 mL/min/1.73m2 Mildly decreased* ? 60 - 89 mL/min/1.73m2 Mildly to moderately decreased ?45 - 59 mL/min/1.73m2 Moderately to severely decreased ??30 - 44 mL/min/1.73m2 Severely decreased ?15 - 29 mL/min/1.73m2 Kidney Failure ?< 15 ??mL/min/1.73m2 *Relative to young adult level Estimated glomerular filtration rate is determined by the 2020 CKD-EPI equation recommended by the National Kidney Foundation (A Unifying Approach to GFR Estimation: Recommendations of the NKF-ASK Task Force on Reassessing the Inclusion of Race in Diagnosing Kidney Disease, JASN 2020). The CKD-EPI equation should not be used for patients with unstable renal function and has not been validated in children and those over 70. Current interpretive data was last reviewed 2021. Blood 12/13/2023 2:11 AM CDT 12/13/2023 2:25 AM CDT us Kevin Anne MD LAB BLOOD ORDERABLES F inal Result [facility] [place] [address] * CBC without differential (12/13/2023 2:11 AM CDT) WBC See Comment 3.8 - 9.9 Comment: Credited, collection error. Likely diluted specimen. Telephone report made to: Ren Chan RN on 12/13/2023 02:46:51 CDT by PRAKASH . Hgb See Comment 11.9 - 15.5 [facility] Comment: Critical result called to and read back by REN CHAN RN on 12 13 2023 at 0242 to Yovanny Savage. Credited, collection error. Likely diluted specimen. Telephone report made to: Ren Chan RN on 12/13/2023 02:46:51 CDT by PRAKASH . Hct See Comment 35.6 - 45.5 [facility] Comment: Credited, collection error. Likely diluted specimen. Telephone report made to: Ren Chan RN on 12/13/2023 02:46:51 CDT by PRAKASH . Plt See Comment 150 - 400 [facility] Comment: Credited, collection error. Likely diluted specimen. Telephone report made to: Ren Chan RN on 12/13/2023 02:46:51 CDT by PRAKASH . MPV See Comment 9.1 - 12.3 [facility] Comment: Credited, collection error. Likely diluted specimen. Telephone report made to: Ren Chan RN on 12/13/2023 02:46:51 CDT by . RBC See Comment 3.90 - 5.20 [facility] Comment: Credited, collection error. Likely diluted specimen. Telephone report made to: Ren Chan RN on 12/13/2023 02:46:51 CDT by . MCV See Comment 81.3 - 96.4 [facility] Comment: Credited, collection error. Likely diluted specimen. Telephone report made to: Ren Chan RN on 12/13/2023 02:46:51 CDT by PRAKASH . MCH See Comment 27.1 - 33.3 [facility] Comment: Credited, collection error. Likely diluted specimen. Telephone report made to: Ren Chan RN on 12/13/2023 02:46:51 CDT by PRAKASH . MCHC See Comment 32.3 - 35.7 [facility] Comment: Credited, collection error. Likely diluted specimen. Telephone report made to: Ren Chan RN on 12/13/2023 02:46:51 CDT by PRAKASH . RDW CV See Comment 11.1 - 14.9 [facility] Comment: Credited, collection error. Likely diluted specimen. Telephone report made to: Ren Chan RN on 12/13/2023 02:46:51 CDT by PRAKASH . RDW SD See Comment 35.7 - 48.1 [facility] Comment: Credited, collection error. Likely diluted specimen. Telephone report made to: Ren Chan RN on 12/13/2023 02:46:51 CDT by PRAKASH . NRBC abs See Comment 0.00 - 0.01 K/cumm [facility] Comment: Credited, collection error. Likely diluted specimen. Telephone report made to: Ren Chan RN on 12/13/2023 02:46:51 CDT by PRAKASH . Blood 12/13/2023 2:11 AM CDT 12/13/2023 2:25 AM CDT Kevin Anne MD LAB BLOOD ORDERABLES E dited Result - Final Performing Organization Address City/[facility]/ZIP Co de Phone Number [facility] [place] [address] * (ABNORMAL) Phosphorus (12/13/2023 2:11 AM CDT) Phosphorus, pl 1.6(L) 2.3 - 4.5 mg/dL Blood 12/13/2023 2:11 AM CDT 12/13/2023 2:25 AM CDT Kevin Anne MD LAB BLOOD ORDERABLES F inal Result [facility] [place] [address] * Magnesium (12/13/2023 2:11 AM CDT) Magnesium 2.0 1.4 - 2.5 mg/dL Blood 12/13/2023 2:11 AM CDT 12/13/2023 2:25 AM CDT Kevin Anne MD LAB BLOOD ORDERABLES F inal Result Performing Organization Address [place]/[facility] Co de Phone Number [facility] [place] [address] * (ABNORMAL) Basic metabolic panel (12/13/2023 2:11 AM CDT) [facility] Sodium 133(L) 135 - 145 mmol/L Potassium, pl 5.3(H) 3.3 - 4.9 mmol/L [facility] Chloride 102 97 - 110 mmol/L [facility] CO2 29 22 - 32 mmol/L [facility] Anion gap 2 2 - 15 mmol/L [facility] BUN 29(H) 6 - 25 mg/dL [facility] Creatinine 0.63 0.60 - 1.10 mg/dL [facility] Glucose 166 70 - 199 mg/dL [facility] Comment: Interpretive Data Fasting glucose >/= 126 mg/dl is diagnostic for diabetes. ?? Fasting is defined as no caloric intake for at least 8 hours. Fasting glucose between 100 mg/dl to 125 mg/dl is diagnostic of prediabetes. In a patient with classic symptoms of hyperglycemia or hyperglycemic crisis, a random glucose >/= 200 mg/dl is diagnostic for diabetes. In the absence of unequivocal hyperglycemia, results should be confirmed by repeat testing. The classification and Diagnosis of Diabetes Diabetes Care 202; 46: S19-S40. Current interpretive data was last revised 2022. Calcium 8.7 8.5 - 10.3 mg/dL [facility] Blood 12/13/2023 2:11 AM CDT 12/13/2023 2:25 AM CDT Kevin Anne MD LAB BLOOD ORDERABLES F inal Result Performing Organization Address [place]/[facility] Co de Phone Number [facility] [place] [address] * (ABNORMAL) Hemoglobin A1c (12/09/2023 10:24 PM CDT) Hgb A1C 6.5(H) 4.0 - 5.6 % Estimated Average Glucose 140 mg/dL [facility] Comment: The ADA recommends reporting an estimated Average Glucose (eAG) with all Hemoglobin A1c results using the equation derived from a study of 507 normal and diabetic adults. ??Minority populations were underrepresented and children were not included. ?? (Diabetes Care 2020; 43(S1): S66-S76). ??The eAG is not equivalent to a fasting glucose. Blood 12/09/2023 10:2 4 PM CDT 12/09/2023 10:38 PM CDT us Emy Sanchez NP LAB BLOOD ORDERABLES F inal Result [facility] [place] [address] * (ABNORMAL) Lipid panel (08/07/2023 2:35 PM CDT) Cholesterol 94 30 - 199 mg/dL Comment: Interpretive Data Ages < or = 19 years ??Acceptable: ? <170 mg/dL ??Borderline high: ??170-199 mg/dL ??High: ? >or= 200 mg/dL Ages > or = 20 years ??Desirable: ?<200 mg/dL ??Borderline high: ??200-239 mg/dL ??High: ? >or= 240 mg/dL Literature References: 1. Expert Panel on Integrated Guidelines for Cardiovascular Health and Risk Reduction in Children and Adolescents. Pediatrics 2011;128:S213 2. NCEP Expert Panel. Circulation 2004;110:227 Current Interpretive Data was last revised on 2017. Triglycerides 145 <=149 mg/dL [facility] Comment: Interpretive Data Ages < or = 9 years ??Acceptable: ? <75 mg/dL ??Borderline high: ??75-99 mg/dL ??High: ? >or= 100 mg/dL Ages 10 to 20 years ??Acceptable: ? <90 mg/dL ??Borderline high: ??90-129 mg/dL ??High: ? >or= 130 mg/dL Ages > or = 20 years ??Desirable: ?<150 mg/dL ??Borderline high: ??150-199 mg/dL ??High: ? 200-499 mg/dL ?Very high: ?? >or= 499 mg/dL Literature References: 1. Expert Panel on Integrated Guidelines for Cardiovascular Health and Risk Reduction in Children and Adolescents. Pediatrics 2011;128:S213 2. NCEP Expert Panel. Circulation 2004;110:227 Current Interpretive Data was last revised on 2017. HDL 32(L) >=40 mg/dL [facility] Comment: Interpretive Data Ages < or = 19 years ??Acceptable: ? >45 mg/dL ??Borderline low: ?? 40-45 mg/dL ??Low: ? <40 mg/dL Ages > or = 20 years ??Desirable: ?>or= 60 mg/dL ??Low: ? <40 mg/dL Literature References: 1. Expert Panel on Integrated Guidelines for Cardiovascular Health and Risk Reduction in Children and Adolescents. Pediatrics 2011;128:S213 2. NCEP Expert Panel. Circulation 2004;110:227 Current Interpretive Data was last revised on 2017. LDL, calculated 33 <=129 mg/dL [facility] Comment: Interpretive Data Ages < or = 19 years ??Acceptable: ? <110 mg/dL ??Borderline high: ??110-129 mg/dL ??High: ?>or= 130 mg/dL Ages > or = 20 years ??Optimal: ? <100 mg/dL ??Near optimal: ?100-129 mg/dL ??Borderline high: ?? 130-159 mg/dL ??High: ?>160 mg/dL Literature References: 1. Expert Panel on Integrated Guidelines for Cardiovascular Health and Risk Reduction in Children and Adolescents. Pediatrics 2011;128:S213 2. NCEP Expert Panel. Circulation 2004;110:227 Current Interpretive Data was last revised on 2017. Non-HDL Cholesterol 62 mg/dL [facility] Comment: Interpretive Data Ages < or = 19 years ??Acceptable: ?<120 mg/dL ??Borderline high: ??120-144 mg/dL ??High: ?>145 mg/dL Ages > or = 20 years ??When triglycerides are >200 mg/dL, Non-HDL cholesterol is a secondary target of ? therapy with treatment goals that are 30 mg/dL greater than the LDL cholesterol target. ? Literature References: 1. Expert Panel on Integrated Guidelines for Cardiovascular Health and Risk Reduction in Children and Adolescents. Pediatrics 2011;128:S213 2. NCEP Expert Panel. Circulation 2004;110:227 Current Interpretive Data was last revised on 2017. Chol/HDL ratio 3 [facility] Blood 08/07/2023 2:35 PM CDT 08/07/2023 2:51 PM CDT Parris Celestin HAMPER MAKER LAB BLOOD ORDERABLES Sri davalos Result [facility] [place] [address] * Albumin Creatinine Ratio, Urine (02/23/2023 11:01 AM COGNOS LEAD) Creatinine, ur 94 20 - 275 mg/dL [facility] Microalbumin, ur 2.3 See Note: mg/dL [facility] Comment: Reference Range: Reference Range Not established Microalbumin/creat ratio 24 <30 mcg/mg creat [facility] Comment: The ADA defines abnormalities in albumin excretion as follows: Albuminuria Category ?Result (mcg/mg creatinine) Normal to Mildly increased ?? <30 Moderately increased ? 30-299 Severely increased ? > OR = 300 The ADA recommends that at least two of three specimens collected within a 3-6 month period be abnormal before considering a patient to be within a diagnostic category. Urine 02/23/2023 11:0 1 AM COGNOS LEAD 02/23/2023 11:01 AM COGNOS LEAD Cuba Larsen MD LAB URINE ORDERABLES Final Re sult [facility] [address] [place] [address] * DIABETES EYE EXAM (12/10/2022) Historical Provider HEALTH MAINTENANCE Final Result from Last 3 Months or Most Recently Relevant to Health Maintenance Insurance [facility]ALTH[facility]ARE Member Subscriber Plan / Payer (Ef fective 2023-Present) Name:Prema Pearce Relation to Subscriber:Self Name:Prema Pearce Payer ID:[id number] ([facility]) Type:MEDICARE RISK OTHER Address: [address] [facility] Advance Directives For more information, please contact: [phone] Documents on File Type Date Recorded Patient Estate Planning Counselor Expl anation ADVANCE DIRECTIVE 12/11/2023 12:06 PM NUHA R OF GED INSTRUCTOR-MEDICAL ADVANCE DIRECTIVE 10/27/2019 8:48 AM Power of Health Communications Specialist-Medical ADVANCE DIRECTIVE 10/27/2019 8:47 AM Power of Health Communications Specialist-Medical * LIMITED - No CPR (Latest Code Status on File) Date Activated Date Inactivated Comments 12/10/2023 8:44 AM 12/16/2023 11:00 PM Question Answer Comments Provide aggressive medical m anagement before a full cardiopulmonary arrest occurs. Use antibiotics, IV Fluids, and medical treatment unless specifically selected below: No intubationNo cardioversionNo internal / external pacemakerNo non-invasive ventilationNo vasopressors * Full Code Date Activated Date Inactivated Comments 12/08/2023 10:50 PM 12/10/2023 8:44 AM * Full Code Date Activated Date Inactivated Comments 08/07/2023 2:14 PM 08/10/2023 10:06 PM * Full Code Date Activated Date Inactivated Comments 05/25/2021 10:09 PM 05/29/2021 11:39 PM * Full Code Date Activated Date Inactivated Comments 09/13/2020 11:33 AM 09/13/2020 7:06 PM Healthcare Agents on File Name Relationship Healthcare Agent Relationshi p Communication Elio Santana Health Care Agent Care Teams Rehab Nurse Relationship Specialty Start Date End Date Cuba Larsen MD PCP - General Family Medicine 01/23/22 Chris Mendes MD Referring Physician Cardiology 12/23/21 Keli Orozco, poly area supervisor Failure Coordinator Transplant 04/15/23 Tami Mcknight poly area supervisor Failure Coordinator Cardiology 09/14/23
--- OUTSIDE RECORDS SUMMARY | 2024-03-13 01:07 | XMS_ITS | Encounter Summary ---
Author Organization [facility] Healthcare Address [address] [place] [address] Care Team Providers Care Board Mixer Tender Name Role Phone Chris Mendes MD Unavailable [phone] Cuba Larsen MD Primary Care Provider [phone] Keli Orozco RN Unavailable Unavailable Tami Mcknight RN Unavailable Unavailab le Reason for Referral * Consultation (Routine) - Authorized Specialty Diagnoses / Procedures Referred By Indra muñoz Referred To Contact Cardiology Diagnoses Paroxysmal atrial fibrillation (CMS/HCC) (HCC) Chris Mendes MD [address] [address] Phone: tel: fax: [facility] (All Locations) Referral ID Status Reason Start Date Expiration Date Visits Requested Visits Authorized [id number] Authorized Specialty Services Required 4 01/23/2025 99 99 Question Answer Please select the performing region: [facility] (All Locations) [167] Is this referral for the [facility]? Yes Is this referral for the [facility]? No # of visits: 1 Comments consideration of LAAO/Watchman device ER IN [place] Encounter Details Date Type Department Care Team (Late st Contact Info) Description 02/03/2024 Orders Only [facility] Transplant Heart [address] [facility] [phone] [place] [address] Keli Orozco RN Paroxysmal atrial fibrillation (CMS/HCC) (HCC) (Primary Dx) Social History Tobacco Use Types Packs/Day Years Used Date Smoking Tobacco: Never Smokeless Tobacco: Never Alcohol Use Standard Drinks/Week Comments Yes 0 (1 standard drink = 0.6 oz pur e alcohol) 1/ AUDIT-C Answer Date Recorded Q1: How often [...] on file Legal Sex Female 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 Gender Identity Not on file Sexual Orientation Not on file documented as of this encounter Plan of Treatment Scheduled Referrals Name Type Priority Associated Diagnoses Orde r Schedule Ambulatory referral to Cardiology Outpatient Referral Routine Paroxysmal atrial fibrillation (CMS/HCC) (HCC) Expected: 02/17/2024 (Approximate), Expires: 02/02/2025 documented as of this encounter Visit Diagnoses Diagnosis Paroxysmal atrial fibrillation (CMS/HCC) (HCC)- Primary Atrial fibrillation documented in this encounter Care Teams Board Mixer Tender Relationship Specialty Start Date End Date Cuba Larsen MD PCP - General Family Medicine 01/23/22 Chris Mendes MD Referring Physician Cardiology 12/23/21 Keli Orozco RN Heart Failure Coordinator Transplant 04/15/23 Tami Mcknight, senior project coordinator Failure Coordinator Cardiology 09/14/23 documented as of this encounter
--- OUTSIDE RECORDS SUMMARY | 2024-03-13 01:07 | XMS_ITS | Encounter Summary ---
Author Organization [facility] Healthcare Address [address] [place] [address] Care Team Providers Care Print Traffic Manager Name Role Phone Chris Mendes MD Unavailable [phone] Cuba Larsen MD Primary Care Provider Keli Orozco RN Unavailable Unavailable Tami Mcknight RN Unavailable Unavailab le Encounter Details Date Type Department Care Team (Late st Contact Info) Description 02/15/2024 Orders Only [facility] Medical Group Cardiology [address] [place] [address] Catarino Ramirez MD [address] [place] [address] Social History Tobacco Use Types Packs/Day Years [...] on file Legal Sex Female 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 PARENT EDUCATOR Gender Identity Not on file Sexual Orientation Not on file documented as of this encounter Plan of Treatment Not on file documented as of this encounter Procedures Procedure Name Priority Date/Time Associated Diagnosis Comments CARDIOLOGY DOCUMENT SCAN Routine 02/14/2024 6:35 PM PARENT EDUCATOR documented in this encounter Results * Cardiology Document Scan (02/14/2024 6:35 PM PARENT EDUCATOR) Anatomical Region Laterality Modality Other us Catarino Ramirez MD CV CARDIAC SERVICES PROCEDU RES Final Result documented in this encounter Visit Diagnoses Not on filedocumented in this encounter Care Teams Print Traffic Manager Relationship Specialty Start Date End Date Cuba Larsen MD PCP - General Family Medicine 01/23/22 Chris Mendes MD Referring Physician Cardiology 12/23/21 Keli Orozco, metal weigher Failure Coordinator Transplant 04/15/23 Tami Mcknight, metal weigher Failure Coordinator Cardiology 09/14/23 documented as of this encounter
--- OUTSIDE RECORDS SUMMARY | 2024-03-13 01:07 | XMS_ITS | Encounter Summary ---
Author Organization [facility] Healthcare Address [address] [place] [address] Care Team Providers Care Developmental Electronics Assembler Name Role Phone Chris Mendes MD Unavailable [phone] Cuba Larsen MD Primary Care Provider [phone] Keli Orozco RN Unavailable Unavailable Taim Mcknight RN Unavailable Unavailab le Reason for Visit * Reason Onset Date Comments Medical Question/Miscellaneous 12/25/2023 Encounter Details Date Type Department Care Team (Late st Contact Info) Description 12/25/2023 Telephone [facility] Medical Group Family Medicine at [address] [place] [address] Cuba Larsen MD [address] [place] [id number] Medical Question/Miscellaneous Social History Tobacco Use Types Packs/Day Years [...] on file 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 Larsen cannot really do anything for patient, but once she is ready for discharge social worker health services will get involved and then make plan for discharge. Patient doesn'treally know if she will be able to be discharged or not, informed to ask for social worker health services now so they can start looking at future plan for her. Patient verbalizes understanding * Telephone Encounter - Mary Park - 12/25/2023 10:45 AM CDT Medical Question/Miscellaneous Caller???s Concern: Patient called and stated she is in rehab after a fall. She broke her hip and had surgery. 3 weeks ago. She is happy with the facility but they leave her to sit for hours at a time. She is calling to express concerns for when she is discharged where she will go. She thinks she needs to talk to a social worker health services now. She feel as though she needs to start making plans now. Could someone please call her back? Does message need to be routed? Yes-Action Needed documented in this encounter Plan of Treatment Not on file documented as of this encounter Visit Diagnoses Not on filedocumented in this encounter Care Teams Developmental Electronics Assembler Relationship Specialty Start Date End Date Rawdon, Cuba P., MD PCP - General Family Medicine 01/23/22 Chris Mendes MD Referring Physician Cardiology 12/23/21 Keli Orozco, bath mix operator Failure Coordinator Transplant 04/15/23 Tami Mcknight, bath mix operator Failure Coordinator Cardiology 09/14/23 documented as of this encounter
--- OUTSIDE RECORDS SUMMARY | 2024-03-13 01:07 | XMS_ITS | Encounter Summary ---
Author Organization [facility] Address [address] [place] [address] Phone Care Team Providers Care Principal Scientist Name Role Phone Chris Sanchez MD Unavailable [phone] Cuba Larsen MD Primary Care Provider [phone] Keli Orozco RN Unavailable Unavailable Tami Mcknight RN Unavailable Unavailab le Reason for Visit * Reason Onset Date Comments LAAO IOV 02/05/2024 Encounter Details Date Type Department Care Team (Late st Contact Info) Description 02/05/2024 Telephone [facility] Cardiology [facility] Advanced Medicine 8th [place] [address] [place] [phone] Chris Sanchez MD [address] [facility] [address] [place] [address] LAAO IOV Social History Tobacco Use Types Packs/Day Years Used Date Smoking Tobacco: Never Smokeless Tobacco: Never Alcohol Use Standard Drinks/Week Comments Yes 0 (1 standard drink = 0.6 oz pur e alcohol) / AUDIT-C Answer Date Recorded Q1: How often [...] on file 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 Spoke to Tami and stated patient can take Spironolactone in the AM. Tami will make the time change in her chart RACT MODELER * Telephone Encounter - Jillian Browning RN - 02/23/2024 10:03 AM CST Conf letter pending for appt 03/14/24. RACT MODELER * Telephone Encounter - Geovanna Franklin - 02/23/2024 8:11 AM CST Routing encounter to follow up please advise on scheduling. RACT MODELER * Telephone Encounter - Alise Guillory - 02/05/2024 2:45 PM CST Watchman Referral [id number] atrial fibrillation (CMS/HCC) (HCC) Referred By CHRIS SANCHEZ Provider Comments consideration of LAAO/Watchman device Referred On02/03/2024 RACT MODELER documented in this encounter Plan of Treatment Not on file documented as of this encounter Visit Diagnoses Not on filedocumented in this encounter Care Teams Principal Scientist Relationship Specialty Start Date End Date Cuba Larsen MD PCP - General Family Medicine 01/23/22 Chris Sanchez MD Referring Physician Cardiology 12/23/21 Keli Orozco, community mental health worker Failure Coordinator Transplant 04/15/23 Tami Mcknight, community mental health worker Failure Coordinator Cardiology 09/14/23 documented as of this encounter
--- OUTSIDE RECORDS SUMMARY | 2024-03-13 01:07 | XMS_ITS | Encounter Summary ---
Author Organization [facility] Healthcare Address [address] [place] [address] Care Team Providers Care Statistics Professor Name Role Phone Chris Mendes MD Unavailable [phone] Cuba Larsen MD Primary Care Provider [phone] Keli Orozco RN Unavailable Unavailable Tami Mcknight RN Unavailable Unavailab le Encounter Details Date Type Department Care Team (Late st Contact Info) Description 02/13/2024 Orders Only [facility] Information Management [address] [place] [address] Cbua Larsen MD 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 Gender Identity Not on file Sexual Orientation Not on file documented as of this encounter Plan of Treatment Not on file documented as of this encounter Procedures Procedure Name Priority Date/Time Associated Diagnosis Comments SCAN - RADIOLOGY/IMAGING 02/13/2024 CARDIOLOGY DOCUMENT SCAN 02/12/2024 documented in this encounter Results * SCAN - RADIOLOGY/IMAGING (02/13/2024) Anatomical Region Laterality Modality Other us Cuba Larsen MD Edited Result - Final * Cardiology Document Scan (02/12/2024) Anatomical Region Laterality Modality Other us Cuba Larsen MD CV CARDIAC SERVICES PROCEDURE S Final Result documented in this encounter Visit Diagnoses Not on filedocumented in this encounter Care Teams Statistics Professor Relationship Specialty Start Date End Date Cuba Larsen MD PCP - General Family Medicine 01/23/22 Chris Mendes MD Referring Physician Cardiology 12/23/21 Keli Orozco, retail solar advisor Failure Coordinator Transplant 04/15/23 Tami Mcknight RN Heart Failure Coordinator Cardiology 09/14/23 documented as of this encounter
--- OUTSIDE RECORDS SUMMARY | 2024-03-13 01:07 | XMS_ITS | Encounter Summary ---
Author Organization [facility] Healthcare Address [address] [place] [address] Care Team Providers Care Shoe Associate Name Role Phone Chris Mendes MD Unavailable [phone] Cuba Larsen MD Primary Care Provider [phone] Keli Orozco RN Unavailable Unavailable Tami Mcknight RN Unavailable Unavailab le Encounter Details Date Type Department Care Team (Late st Contact Info) Description 02/26/2024 Orders Only [facility] Health Information Management [address] [place] [address] Cuba Larsen MD [facility] [address] [address] Social History Tobacco Use Types [...] on file 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 Gender Identity Not on file Sexual Orientation Not on file documented as of this encounter Plan of Treatment Not on file documented as of this encounter Procedures Procedure Name Priority Date/Time Associated Diagnosis Comments SCAN - RADIOLOGY/IMAGING 02/26/2024 documented in this encounter Results * SCAN - RADIOLOGY/IMAGING (02/26/2024) Anatomical Region Laterality Modality Other us Cuba Larsen MD Edited Result - Final documented in this encounter Visit Diagnoses Not on filedocumented in this encounter Care Teams Shoe Associate Relationship Specialty Start Date End Date Cuba Larsen MD PCP - General Family Medicine 01/23/22 Chris Mendes MD Referring Physician Cardiology 12/23/21 Keli Orozco, summer child caregiver Failure Coordinator Transplant 04/15/23 Tami Mcknight RN Heart Failure Coordinator Cardiology 09/14/23 documented as of this encounter
--- OUTSIDE RECORDS SUMMARY | 2024-03-13 01:07 | XMS_ITS | Encounter Summary ---
Author Organization [facility] Address [address] [place] [address] Phone Care Team Providers Care World History Teacher Name Role Phone Chris Mendes MD Unavailable [phone] Cuba Larsen MD Primary Care Provider [phone] Keli Orozco RN Unavailable Unavailable Tami Mcknight RN Unavailable Unavailab le Reason for Referral * Diagnostic Imaging (Routine) - Closed Specialty Diagnoses / Procedures Referred By Contac t Referred To Contact Diagnoses Closed displaced fracture of left femoral neck (HCC) Procedures XR Femur Left 2 or More Views Homer Villalobos MD [address] [place] [address] Phone: tel: fax: [address] [address] Referral ID Status Reason Start Date Expiration Date Visits Re quested Visits Authorized [id number] Closed 01/14/2024 02/12/2025 1 1 Reason for Visit * Consultation (Routine) - Authorized Specialty Diagnoses / Procedures Referred By Contact Referred To Contact Orthopedic Surgery Diagnoses Open intertrochanteric fracture of left femur, sequela Cuba Larsen MD [address] [address] [place] [address] [place], [place] [id number] Phone: tel:[phone] fax: [facility] (All Locations) Referral ID Status Reason Start Date Expiration Date Visits Requested Visits Authorized [id number] Authorized Specialty Services Required 01/15/2024 01/13/2025 12 12 Encounter Details Date Type Department Care Team (Late st Contact Info) Description 01/18/2024 2:15 PM APIGEE DEVELOPER Office Visit [facility] Orthopaedic Surgery [address] [facility] [address] [place] [address] [place] [address] Homer Villalobos MD [address] [facility] [address] [address] Closed displaced fracture of left femoral neck (HCC) (Primary Dx); Open intertrochanteric fracture of left femur, sequela Social History Tobacco Use Types Packs/Day Years [...] on file Legal Sex Female 4:20 AM APIGEE DEVELOPER Gender Identity Not on file Sexual Orientation Not on file documented as of this encounter Progress Notes * Dharmesh Dobbins MD - 01/18/2024 2:15 PM CST POST OP VISIT INTERIM HISTORY Recovering from a left IT fracture status post DHS 12/09/2023. Past medical history includes a leftdistal femoral replacement status post distal femur fracture sustained in 2019. Is overall very pleased with how her left hip feels. Minimal left hip pain. She has [facility] doing therapy 5 days a week. She feels like she is struggling to regain her full strength. Endorses left knee pain. PHYSICAL EXAMINATION Left hip incision healed. No drainage or concern for infection. Full painless passive range of motion of the left hip and knee. 3/5 quad and IP strength. REVIEW OF X-RAYS/STUDIES I have ordered and personally reviewed xrays of the patient's left femur x-rays which demonstrate maintained alignment of fracture without hardware failure IMPRESSION Overall doing well 6 weeks status post DHS for left IT fracture PLAN/FOLLOW UP Recommend that she continue to work with therapy to regain her strength. We will provide her with anew script for therapy. We will plan to see her back in 2 months for repeat evaluation. Dharmesh Dobbins MD Department of Orthopaedic Surgery, PGY-2 [facility] Cosigned by Homer Villalobos MD at 01/19/2024 8:31 AM APIGEE DEVELOPER EE DEVELOPER EE DEVELOPER Associated attestation - Homer Villalobos MD - 01/19/2024 8:31 AM APIGEE DEVELOPER I have seen and examined the patient. I agree with the findings and plan of care as documented in the resident/fellow's note. My total encounter time on 01/18/2024 was 10 minutes which was spent in the activities documented in the note. This includes time spent prior to the visit and after the visitin direct care of the patient. This time does not include time spent in any separately reportable services. documented in this encounter Plan of Treatment Not on file documented as of this encounter Results * XR Femur Left 2 or More Views (01/18/2024 2:34 PM APIGEE DEVELOPER) Anatomical Region Laterality Modality Lower Extremities, Thigh, Femur Left Computed Radiography 01/18/2024 2:47 PM APIGEE DEVELOPER Impressions 01/18/2024 2:47 PM APIGEE DEVELOPER 1. ??Healing internally fixated left femur intertrochanteric fracture. Electronically signed by: Rayray Matthews MD Narrative 01/18/2024 2:47 PM APIGEE DEVELOPER EXAMINATION: XR FEMUR LEFT 2 OR MORE [...] MD IMG XR PROCEDURE S Final Result documented in this encounter Visit Diagnoses Diagnosis Closed displaced fracture of left femoral neck (HCC)- Primary Open intertrochanteric fracture of left femur, sequela Closed displaced fracture of left femoral neck (HCC) documented in this encounter Orders Outpatient Referral Count Last Ordered Date Fir st Ordered Date AMB REFERRAL TO ORTHOPEDIC SURGERY 1 2023 documented in this encounter Care Teams World History Teacher Relationship Specialty Start Date End Date Cuba Larsen MD PCP - General Family Medicine 01/23/22 Chris eMndes MD Referring Physician Cardiology 12/23/21 Keli Orozco, designer Failure Coordinator Transplant 04/15/23 Tami Mcknight, designer Failure Coordinator Cardiology 09/14/23 documented as of this encounter
--- OUTSIDE RECORDS SUMMARY | 2024-03-13 01:07 | XMS_ITS | Encounter Summary ---
Author Organization [facility] Address [address] [place] [address] Phone Care Team Providers Care Trimming Assembler Name Role Phone Chris Mendes MD Unavailable [phone] Cuba Larsen MD Primary Care Provider [phone] Keli Orozco RN Unavailable Unavailable Tami Mcknight RN Unavailable Unavailab le Reason for Visit * Reason Onset Date Comments Scheduling Appointments 01/04/2024 Encounter Details Date Type Department Care Team (Late st Contact Info) Description 01/04/2024 Telephone [facility] Scheduling [address] [place], [place] [id number] Gilda Hollingsworth, [facility] [address] [facility] [address] [place] [address] Scheduling Appointments Social History Tobacco Use Types Packs/Day Years [...] on file 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 Gender Identity Not on file Sexual Orientation Not on file documented as of this encounter Miscellaneous Notes * Telephone Encounter - Jo Ann Anders - 01/04/2024 12:49 PM CDT Lvm to confirm nov appt documented in this encounter Plan of Treatment Not on file documented as of this encounter Visit Diagnoses Not on filedocumented in this encounter Care Teams Trimming Assembler Relationship Specialty Start Date End Date Cuba Larsen MD PCP - General Family Medicine 01/23/22 Chris Mendes MD Referring Physician Cardiology 12/23/21 Keli Orozco, quill winder Failure Coordinator Transplant 04/15/23 Tami Mcknight RN Heart Failure Coordinator Cardiology 09/14/23 documented as of this encounter
--- OUTSIDE RECORDS SUMMARY | 2024-03-13 01:07 | XMS_ITS | Encounter Summary ---
Author Organization [facility] Healthcare Address [address] [place] [address] Care Team Providers Care Buhr Dresser Name Role Phone Chris Mendes MD Unavailable [phone] Cuba Larsen MD Primary Care Provider [phone] Keli Orozco RN Unavailable Unavailable Tami Mcknight RN Unavailable Unavailab le Reason for Visit * Reason Comments Fall * Auth/Cert (Routine) Specialty Diagnoses / Procedures Referred By Indra t Referred To Contact Diagnoses Primary hypertension History of diabetes mellitus Obstructive sleep apnea on CPAP Fall, initial encounter Closed nondisplaced intertrochanteric fracture of left femur, initial encounter (HCC) Fall from standing, initial encounter Closed displaced fracture of left femoral neck (HCC) Contusion of left shoulder, initial encounter Chronic heart failure with reduced ejection fraction and diastolic dysfunction (CMS/HCC) (HCC) History of CAD (coronary artery disease) Procedures n/a Referral ID Status Reason Start Date Expiration Date Visits Re quested Visits Authorized [id number] 1 1 Encounter Details Date Type Department Care Team (Latest Contact Info) Description 12/08/2023 11:19 AM CDT - 12/16/2023 6:50 PM CDT Hospital Encounter [facility] [address] [place] [address] Steve Huber MD [address] [facility] [address] [place] [address] Dick Nova MD [address] [place] [address] Adonay Douglas MD [address] [place] [address] Kevin Corrigan MD [address] [facility] [id number] [place] [address] Closed displaced fracture of left femoral neck [...] Anxiety; Hyponatremia Discharge Disposition: Discharge to SNF Social History Tobacco Use Types Packs/Day Years [...] on file 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[employer] Gender Identity Not on file Sexual Orientation Not on file documented as of this encounter Last Filed Vital Signs Vital Sign Reading Time Taken Comments Blood Pressure 130/65 12/16/2023 6:20 PM CDT Pulse 79 12/16/2023 6:20 PM CDT Temperature 36.1 ??C (97 ??F) 12/16/2023 5:14 PM CDT Respiratory Rate 18 12/16/2023 6:20 PM CDT Oxygen Saturation 98% 12/16/2023 6:20 PM CDT Inhaled Oxygen Concentration - - Weight 84.8 kg (186 lb 15.2 oz) 024 10:55 PM CDT Height 157.5 cm (5' 2.01 ) 12/08/2023 1 0:55 PM CDT Body Mass Index 34.18 12/08/2023 10:55 PM CDT documented in this encounter Discharge Summaries * Danette Causey, LM - 12/16/2023 9:56 AM CDT Images from the original note were not included. 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 She was walking down two steps to her backyard, lost her footing and fell on her left side, landed on thegrass. Denies HS or LOC. HDS on presentation. Primary survey unremarkable. GCS 15. She reports severe pain of the left hip. On exam, pain with passive flexion at the left hip, tender to palpation of the left hip and lumbar back. XR chest, pelvis, left femur, left hip, left shoulder; CT pelvis and left femur done, notable for a left displaced IT fracture. Of note, she denies lightheadedness, dizziness, chest pain, headache, shortness of breath or palpitations prior to the fall. Injury: #Left displaced IT fracture OR 12/08 (Wilfredo) ORIF left IT Edited by: Emy Sanchez NP at 12/10/2023 0718 Discharge Diagnosis(es): Closed displaced fracture of left femoral neck (HCC) Secondary Discharge Diagnosis: Principal Problem: Closed displaced fracture of left femoral neck (HCC) Active Problems: Paroxysmal atrial fibrillation (CMS/HCC) (HCC) Type 2 diabetes mellitus without complications (CMS/HCC) (HCC) Essential hypertension Closed nondisplaced intertrochanteric fracture of left femur (HCC) Discharge planning issues Encounter for medication review DNR (do not resuscitate) Advanced care planning/counseling discussion Electrolyte depletion Symptomatic hypotension Stroke-like symptom Sleep apnea BMI 34.0-34.9,adult Hyperkalemia Urinary retention Acute blood loss anemia (ABLA) Hyponatremia Resolved Problems: No resolved hospital problems. Active Issues Requiring Follow Up: Follow up with Neurology, Cardiology and Orthopedic surgery as scheduled Check BMP in 1 week at Followup with your primary care doctor for ongoing management of your chronic medical issues - [facility] has a primary care clinic that may be able to help if you don't have a primary care doctor - call [phone] to see if they can establish care. Hospital Course: Hyponatremia Assessment & Plan 12/14 Na 128, started PO tablets 12/15 Na 129 - Recheck BMP at in 1 week Acute blood loss anemia (ABLA) Assessment & Plan 12/09 Hgb 11-> 8.4, 1 unit PRBC, post transfusion Hgb stable 8.5 12/12 Hgb 6.2, 1unit PRBC, post Hgb 7.1, CTM 12/13 stable Hgb 8.1 12/14 Hgb 8.3, stable 12/15 Hgb 7.7 (7.7), stable Urinary retention Assessment & Plan 12/11 required straight cath overnight,430 mL retained, in the setting of Hyperkalemia placed Lucio 9/30 void trial pending 12/14 voiding without difficulty 1.5L RESOLVED Hyperkalemia Assessment & Plan 12/11 serum K 5.8-> hyperkalemia protocol initiated, EKG unchanged, repeat whole blood K 4.7, placed Lucio 12/12 stable 5.0 12/13 lateral 5.0-5.4, CTM 12/14 5.3, whole blood K 5.1 12/15 WBK 4.8 BMI 34.0-34.9,adult Assessment & Plan BMI 34.18 Sleep apnea Assessment & Plan Patient uses CPAP at home - home machine at bedside Stroke-like symptom Assessment & Plan 12/09 code stroke called after patient noted to have left facial droop and left arm ataxia, taken toCT - stat head CT with - New foci of new hypoattenuation within the right temporal lobe and likely the left temporal lobe,although evaluation is somewhat limited due to beam hardening artifact. 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 Recommend follow-up with imaging with contrast-enhanced brain MRI if clinically appropr iate. - Chronic left parieto-occipital region of encephalomalacia. [...] to monitor, improving 12/14 continues to improve Symptomatic hypotension Assessment & Plan 12/09 called to bedside for systolic BP [...] continue Coreg 25 mg BID PO RESOLVED Electrolyte depletion Assessment & Plan 12/09 magnesium and potassium replaced Advanced care planning/counseling discussion Assessment & Plan Discussed with patient at bedside regarding code status. She does not have paperwork with her, however she would like to remain DNR/DNI after surgery today. Spoke with brother, Shahram bedside 12/08 who also supported patients decision for DNR after surgery,order changed to reflect DNR POD 1 DNR (do not resuscitate) Assessment & Plan Patient wishes to be DNR after OR Encounter for medication review Assessment & Plan Medications reviewed and updated in admissions tab Home pharmacy [facility] Discharge planning issues Assessment & Plan 12/08 OR with orthopedics 12/09 code stroke this morning followed by ACT secondary to hypotension. Patient transferred to OU for closer observation 12/10 bedside ECHO 12/11 Hyperkalemia protocol 12/12 required 1u PRBC 12/13 improved, likely ready for discharge tomorrow 12/14 Patient is medically stable for discharge, SW/CM updated. Discharge pending facility acceptance 12/15 Hgb stable at 7.7 (7.7), DC to [facility] Treatment Plan: done 12/15 Closed nondisplaced intertrochanteric fracture of left femur (HCC) Assessment & Plan - ortho consult - 12/09 OR for ORIF of L intertrochanteric femur fx Plan: Follow up with Dr. Villalobos on 01/17 at 2:15, Weightbearing as tolerated, Post op DVT prophylaxis- resume home Eliquis at discharged -Bone health referral, started Vitamin D Resume home anticoagulation at discharge WAI (generalized anxiety disorder) Assessment & Plan Home xanax, continued PRN Essential hypertension Assessment & Plan home medications Coreg, cozaar, spironolactone 12/09 holding [...] controlled, continue Coreg 25 mg BID PO Type 2 diabetes mellitus without complications (CMS/HCC) ([facility]) Assessment & Plan Continue DM diet with SSI Holding home glipizide and metformin A1C 6.5 Acquired hypothyroidism Assessment & Plan Continue home levothyroxine Paroxysmal atrial fibrillation (CMS/[facility]) ([facility]) Assessment & Plan Holding home eliquis and Carvedilol 12/10 A fib controlled HR 100s, restarting Coreg 12.5 mg PO BID (home dose 50 mg PO BID) CTM 12/11 HR 90s a fib rate controlled, continue Coreg 25 mg PO BID 12/13 remains rate controlled 90s, continue Coreg 25 mg PO BID Follow up scheduled: [facility] Cardiology 01/31 at 1:20 Operative Procedures Performed: OPEN REDUCTION INTERNAL FIXATION LEFT INTERTROCHANTERIC FEMUR FRACTURE (Left: Lower Extremity) Left Heart Catheterization With Coronary Angiography And With Or Without Left Ventriculogram 93016 Discharge Physical Exam: Discharge Condition: fair Pulse: 87 Resp: 16 BP: 99/54 Temp: 36.2 ??C (97.1 ??F) Weight: 84.8 kg (186 lb 15.2 oz) Physical Exam Cardiovascular: Rate and Rhythm: Normal rate. Pulmonary: Effort: Pulmonary effort is normal. Abdominal: General: Abdomen is flat. There is no distension. Palpations: Abdomen is soft. Musculoskeletal: Comments: Tenderness to L hip Skin: General: Skin is warm and dry. Comments: Surgical incision clean and dry Neurological: Mental Status: She is alert and oriented to person, place, and time. Comments: L hand weakness 4/5, L facial droop Psychiatric: Mood and Affect: Mood normal. Diet: Discharge Disposition: Code Status at Discharge: LIMITED - No CPR Activity: Activity Instructions Discharge Activity: Additional Activity Restrictions: Weight bearing as tolerated to all extremities Discharge Activity: Driving restrictions -Do not drive for 6 weeks or while taking pain medications or until cleared by orthopedic surgery and neurology. Discharge Activity: Walking -You may walk as tolerated. Weight bearing status Restrictions RUE: Weight Bearing as Tolerated Restrictions LUE: Weight Bearing as Tolerated Restrictions RLE: Weight Bearing as Tolerated Restrictions LLE: Weight Bearing as Tolerated Wound Care: Carries out hygiene routine on a regular basis and Requires assistance as directed none Discharge Medications: Your medication list START taking these medications acetaminophen 500 mg capsule 1,000 mg, oral, Every 6 hours lidocaine 4 % adhesive patch,medicated 1 patch, transdermal, Every 24 hours Commonly known as: ASPERCREME methocarbamoL 500 mg tablet 500 mg, oral, 3 times daily Commonly known as: ROBAXIN polyethylene glycol 17 gram/dose bulk powder 17 g, oral, Daily Commonly known as: MIRALAX senna 8.6 mg tablet 1 tablet, oral, Daily PRN Commonly known as: SENOKOT sodium chloride 1 gram tablet 1 g, oral, Daily Doctor's comments: Then recheck BMP CHANGE how you take these medications carvediloL 25 mg tablet 25 mg, oral, 2 times daily with meals (bkfst, dinner) Commonly known as: COREG What changed: how much to take CONTINUE taking these medications apixaban 5 mg tablet 5 mg, oral, 2 times daily Commonly known as: Rhenovia Pharmaquis blood-glucose meter misc Use daily or as directed for monitoring of diabetes. CALCIUM CARBONATE ORAL 600 mg, oral, 2 times daily cholecalciferol 2000 unit tablet oral Commonly known as: VITAMIN D-3 FLUoxetine 20 mg capsule 20 mg, oral, Daily Commonly known as: PROzac glipiZIDE 10 mg tablet TAKE 1 TABLET BY MOUTH TWICE A DAY BEFORE BREAKFAST AND LUNCH Commonly known as: GLUCOTROL glucose blood test strip One strip daily to check glucose Generic drug: blood glucose diagnostic lancets misc 1 each, other, Daily levothyroxine 50 mcg tablet 50 mcg, oral, Daily Commonly known as: SYNTHROID melatonin 5 mg tablet 5 mg, oral, Nightly metFORMIN 500 mg tablet 500 mg, oral Commonly known as: GLUCOPHAGE rosuvastatin 20 mg tablet TAKE 1 TABLET BY MOUTH EVERY DAY Commonly known as: CRESTOR spironolactone 50 mg tablet 50 mg, oral, Daily Doctor's comments: Dose increase Commonly known as: ALDACTONE STOP taking these medications furosemide 40 mg tablet Commonly known as: LASIX losartan 100 mg tablet Commonly known as: COZAAR ASK your doctor about these medications ALPRAZolam 0.5 mg tablet 0.5 mg, oral, 2 times daily PRN Doctor's comments: Not to exceed 5 additional fills before 01/02/2024 Commonly known as: XANAX Discharge Instructions: Other Instructions Special Instructions Your doctor is concerned that you may have osteoporosis, also known as low bone density or weak bone. A referral has been made for you to the [facility] Division of Bone and Mineral Healthto assess your risk of bone disease and fracture. They will contact you to schedule an appointment;if you prefer to call them to schedule please call [phone]. For Follow Up Call [facility] at [phone] Follow up Future Appointments Date Time Provider Department Center 01/05/2024 11:45 AM Cuba Larsen MD [facility] 210 PC 01/18/2024 2:15 PM Homer Villalobos MD [facility] 6A OS 01/26/2024 9:30 AM Gilda Hollingsworth, [facility] 40 NL 02/01/2024 1:20 PM Chris Mendes MD [facility] Cardiology 03/07/2024 2:15 PM Cuba Larsen MD [facility] [address] PC 04/15/2024 1:00 PM Araceli Salcedo MD [facility] CAM 6C NL All care plans discussed with rounding/operative attending: Moises Allen MD I spent 30 minutes completing this hospital discharge. Danette Causey NP 12/16/23 CC: Cuba Larsen MD Cosigned by Abhijit Allen DO at 12/16/2023 11:38 AM CDT documented in this encounter Discharge Instructions * Discharge Instructions* Mahogany Zamudio MD - 12/09/2023 11:29 AM CDT Images from the original note were not included. MD Homer Padilla MD Marschall B. Berkes, MD Mitchel Obey, MD Department of Orthopaedic Surgery (CAM) MOST COMMONLY ASKED QUESTIONS & ANSWERS FOR ORTHOPAEDIC TRAUMA PATIENTS Question: Do the metal implants used to fix my broken bones have to come out in the future? Answer: In general, no. The implants are used to hold the broken bone together while the body healsthe fracture. Metal implants are usually left in unless there is pain or a problem (like infection). However, there are some exceptions; Dr. Pearce, Dr. Villalobos, Dr. Vora and Dr. Guanakito Lopez willlet you know if implant removal is recommended in your particular case. Question: Will my metal implants set off metal detectors? Answer: Possibly; if so, don't be alarmed. TSA personnel will likely ???wand?? you. We recommend you inform TSA personnel of implanted orthopaedic hardware and show them your scar if needed. ID cards that indicate you have implanted hardware will not change this process since there is no possible way for the TSA to know if such a card is real or not. Remember, this process is for the safety of all travelers. Question: How do I get a temporary handicap-parking placard? Answer: Your condition must meet State eligibility requirements for a handicap- parking placard. 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 Also, our medical assistants can provide the forms upon request. Check your hospital discharge paperwork for this form before you call the office. We recommend you call your DMV or visit their website before filing your application and find out what documentation you need to bring with you in order to be issued a temporary handicap placard. Our staff will be happy to complete the medical portion of the form, if you meet the eligibility requirements. Question: Will my swelling ever go away? Answer: Swelling is very often one of the last things to resolve after a fracture or injury. Although swelling usually improves slowly over time, it is not uncommon for swelling to persist 6 months or longer after injury. Depending on the location and severity of your injury, some degree of swelling may be permanent. Question: Where do I go for outpatient physical therapy? Answer: If physical therapy was prescribed you are free to choose any outpatient therapy location you wish. The physical therapy prescription can be used anywhere, similar to how a drug prescription can be brought to any pharmacist. We recommend you call your insurance company first to see how manyvisits are covered and get a list of ???in network?? therapists who are close to your home. Question: What is the difference between a fractured and broken bone? Answer: There is no difference, these mean the same thing. Question: When can I drive? Answer: The ability to return to driving after orthopedic surgery is dependent on several factors including the type of surgery performed, the type of car you drive (manual vs. automatic), the limb involved (leg vs. arm), the side involved (left vs. right) and also your weight bearing status. Your doctor/PA CANNOT ???clear?? or ???release?? you to drive. He or she can recommend that driving is unsafe, but cannot make a legal determination of when it is safe to drive. The decision to return to drive is ultimately your responsibility. However, you must never drive if you are taking narcotic pain medication or other medications that cause drowsiness. Laws vary state by state; but in [place] and [place] there are no laws prohibiting driving after orthopedic surgery. If you are involved in a car accident, law enforcement will determine your ability to drive on a [id number] basis. Please check your own state laws if driving outside of [place] or [place]. Some insurance companies may have policies restricting driving after surgery. Please check with your insurance carrier to determine if any such restrictions exist. Question: When can I go back to work? Answer: Our ultimate goal is for you to return to the level of function and work you had prior to your injury. Depending upon your injury severity and your type of work, this may or may not be possible. If you feel you are able, and you wish to return to work, let us know at your follow up appointment and we will likely write you a note. We can write you a note to be excused from work due to injury if that is appropriate and necessary. Question: I am currently staying at a rehabilitation or nursing facility, when can I go home? Answer: You are free to go home any time you wish. However, the facility staff should help you determine if your condition has improved enough and / or there are sufficient resources available at home for you to safely return home. Question: Should I use a walker or crutches? Answer: Walkers and crutches can be used interchangeably. You may use whichever you feel more comfortable with. Question: What hand should I use my cane in? Answer: Use the cane on the opposite side from your injury. Question: When and how do I get pain medication refills? Answer: When you are discharged from the hospital, you will be sent home with a certain number of pain pills or a prescription for them. These pain pills will need to last you until your follow up appointment and no refills will be given to you before this time. You will not get early refills if you take all of your medicine too fast. Your pain should improve daily and you should be able to take less pain pills on a daily basis. The surgeons generally expect you to be weaned off all narcotics by 4 weeks after your surgery (or after your injury if you did not have surgery). Be sure you have all prescriptions refilled prior to leaving the office. Based on Federal Regulations, narcotics cannotbe called into a pharmacy anymore. If you find a need for medication refills between visits, call the staff at [phone] between 8:00 am and 4:00 pm, Thursday - Thursday. Medication refills are not considered emergent and will not be available evenings or weekends through the emergency line. Do not have pain pills filled from multiple doctors. If this occurs, our office will not provide any narcotics to you in the future. Narcotic pain medication can be very addictive and you should come off of them as soon as possible. Question: What happens if I don't listen and walk on my leg or use my arm before I am supposed to? Answer: If your instructions are that you should be non-weightbearing (NWB), this means you cannot put any weight on your injured body part. There is a reason for this. If you put weight on this or use it too soon, the fixation or the fracture could worsen and you could need surgery to correct it. The hardware you have in your leg or arm is strong enough to hold your bones together while your body heals the fracture; but it isn't strong enough to support anyone's weight. This is VERY important.Your provider will let you walk on it or use it as soon as it is okay for you to do so. Question: Why do I have an additional appointment for bone health? Answer: Our goal is to prevent you from breaking another bone. Risk factors for poor bone health include age 50 or older, female gender, and family history. This appointment is to see our bone healthteam for an evaluation, where they will help decide whether you need medicine to help strengthen your bone. Dr. Neetu Pearce, Dr. Homer Villalobos, Dr. Moses Vora, Dr. Guanakito Lopez and staff hope that these questions & answers will help you in your recovery. If you have any additional questions, please give our office a call at [phone]. Dr. Pearce, Dr. Villalobos, Dr. Vora and Dr. Guanakito Lopez have a team of Medical Assistants and Nurses that can be reached at [phone]. They can help answer questions, address concerns, and assist with medication refills if appropriate. Please understand that they are in clinic on certain days and will return your phone call, as soon as possible. THANK YOU. documented in this encounter Medications at Time of Discharge acetaminophen 500 mg capsuleIndicatio ns:Pain Take 2 capsules (1,000 mg total) by mouth every 6 (six) hours 12/16/2023 apixaban (Eliquis) 5 mg tablet Take 1 tablet (5 mg total) by mouth 2 (two) times a day 60 tablet 11 08/11/2023 blood glucose diagnostic (glucose blood) stripIndications :Type 2 diabetes mellitus without complication, without long-term current use of insulin ([facility]) ([facility]) One strip daily to check glucose 100 each 1 03/19/2023 5 blood-glucose meter miscIndications: Type 2 diabetes mellitus without complication, without long-term current use of insulin ([facility]) ([facility]) Use daily or as directed for monitoring of diabetes. 1 each 03/19/2023 CALCIUM CARBONATE ORAL Take 600 mg by mouth 2 (two) times a day carvediloL (COREG) 25 mg tablet Take 1 tablet (25 mg total) by mouth 2 (two) times a day with meals 12/16/2023 5 cholecalciferol (VITAMIN D-3) 2000 unit tablet Take by mouth glipiZIDE (GLUCOTROL) 10 mg tablet TAKE 1 TABLET BY MOUTH TWICE A DAY BEFORE BREAKFAST AND LUNCH 180 tablet 1 11/19/2023 lancets miscIndications: Type 2 diabetes mellitus without complication, without long-term current use of insulin ([facility]) ([facility]) 1 each by other route daily 100 each 1 03/19/2023 lidocaine (ASPERCREME) 4 % adhesive patch,medicated Place 1 patch on the skin daily 12/16/2023 melatonin 5 mg tablet Take 1 tablet (5 mg total) by mouth nightly 08/10/2023 methocarbamoL (ROBAXIN) 500 mg tablet Take 1 tablet (500 mg total) by mouth 3 (three) times a day 30 tablet 12/16/2023 oxyCODONE (ROXICODONE) 5 mg immediate release tabletIndication s:Pain Take 1 tablet (5 mg total) by mouth every 4 (four) hours as needed for pain 15 tablet 12/16/2023 polyethylene glycol (MIRALAX) 17 gram/dose bulk powderIndication s:constipation Take 17 g by mouth daily 12/16/2023 rosuvastatin (CRESTOR) 20 mg tablet TAKE 1 TABLET BY MOUTH EVERY DAY 90 tablet 3 09/02/2023 senna (SENOKOT) 8.6 mg tablet Take 1 tablet by mouth daily as needed for constipation 12/16/2023 sodium chloride 1 gram tablet Take 1 tablet (1 g total) by mouth daily for 7 days 7 tablet 12/16/2023 spironolactone (ALDACTONE) 50 mg tablet Take 1 tablet (50 mg total) by mouth daily 90 tablet 3 11/02/2023 ALPRAZolam (XANAX) 0.5 mg tabletIndication s:Anxiety Take 1 tablet (0.5 mg total) by mouth 2 (two) times a day as needed for anxiety 10 tablet 12/16/2023 FLUoxetine (PROzac) 20 mg capsule Take 1 capsule (20 mg total) by mouth daily 30 capsule 2 09/02/2023 4 levothyroxine (SYNTHROID) 50 mcg tablet TAKE 1 TABLET BY MOUTH EVERY DAY 90 tablet 11/19/2023 metFORMIN (GLUCOPHAGE) 500 mg tablet TAKE 1 TABLET BY MOUTH TWICE A DAY WITH FOOD 180 tablet 1 09/07/2023 4 documented as of this encounter Ordered Prescriptions Prescription Sig Dispense Quantity Refills Last Filled Start Date End Date oxyCODONE (ROXICODONE) 5 mg immediate release tabletIndications :Pain Take 1 tablet (5 mg total) by mouth every 4 (four) hours as needed for pain 15 tablet 12/16/2023 carvediloL (COREG) 25 mg tablet Take 1 tablet (25 mg total) by mouth 2 (two) times a day with meals 12/16/2023 sodium chloride 1 gram tablet Take 1 tablet (1 g total) by mouth daily for 7 days 7 tablet 12/16/2023 senna (SENOKOT) 8.6 mg tablet Take 1 tablet by mouth daily as needed for constipation 12/16/2023 polyethylene glycol (MIRALAX) 17 gram/dose bulk powderIndications :constipation Take 17 g by mouth daily 12/16/2023 methocarbamoL (ROBAXIN) 500 mg tablet Take 1 tablet (500 mg total) by mouth 3 (three) times a day 30 tablet 12/16/2023 lidocaine (ASPERCREME) 4 % adhesive patch,medicated Place 1 patch on the skin daily 12/16/2023 acetaminophen 500 mg capsuleIndication s:Pain Take 2 capsules (1,000 mg total) by mouth every 6 (six) hours 12/16/2023 ALPRAZolam (XANAX) 0.5 mg tabletIndications :Anxiety Take 1 tablet (0.5 mg total) by mouth 2 (two) times a day as needed for anxiety 10 tablet 12/16/2023 4 oxyCODONE (ROXICODONE) 5 mg immediate release tabletIndications :Pain Take 1 tablet (5 mg total) by mouth every 4 (four) hours as needed for pain 15 tablet 12/16/2023 4 ALPRAZolam (XANAX) 0.5 mg tabletIndications :Anxiety Take 1 tablet (0.5 mg total) by mouth 2 (two) times a day as needed for anxiety 10 tablet 12/16/2023 4 documented in this encounter Discharge Disposition Disposition Code Departure Means Destination Comment s Discharge to [facility] documented in this encounter Progress Notes * Molly Gerber RN - 12/16/2023 11:53 AM CDT 12/16/23 1149 Discharge Summary Discharge Disposition residential facility (short term care) Specify Facility [facility] Contact Number [phone]; fax: [phone] Facility Attending Name Yves Bailey Discharge Records Transfer Form Completed Recommended Discharge Level of Care residential facility (short term care) Actual Discharge Level of Care residential facility (short term care) Does Actual Level of Care Match Care Team Recommendation? Yes Post Acute Care Plan Home Care Services N/A OP Services N/A DME N/A Post Acute Care Facility Yes Referral Status Accepted Accepted Post Acute Care Location and Contact Summer Osei [phone] Bajwa is contact Accepted Post Acute Care Discharge Additional Assistance Does the patient need discharge transport arranged? Yes Type of Transportation Ambulance/EMS Has discharge transport been arranged? Yes Details of Transportation [id number] trip # [id number] D/C Transport Anticipated Date 12/16/23 D/C Transport Anticipated Time 1430 Discharge Transportation Communication Mode of transport has been discussed with the patient/family. All are agreeable to the plan and understand their responsibilities to ensure the safe transfer. No further CM/SW intervention is anticipated at this time. Post Discharge Care Provider Post Discharge Care Plan DC Summary has been faxed to next level of care provider (see Follow Up Providers) Per medical team, patient is medically stable for discharge at this time. Follow up appointment is TBD. Transportation will be provided by [employer] ([phone]) trip # [id number]. Patient and family are agreeable with the plan. If any further discharge needs arise, please contact the covering manager case management. * Geovanna Villalta OT - 12/15/2023 12:36 PM CDT Occupational Therapy Occupational Therapy Progress Note NOTE: This is a summary note of the espitia components of the treatment session. For full details, review chart for all flowsheets documented on by this occupational therapy clinician on this date. Vitalsigns documented in vital signs flowsheet. Care plan progress documented in Care Plan Activity. For questions, please review the treatment team and contact the occupational therapist currently assigned to this patient. If an occupational therapist is not assigned to this patient, please call [phone]. 12/15/23 1239 General Session Type Treatment OT Received On 10/01/24 Safe Environment Arm band checked;Patient found sitting in chair;Gait belt utilized for all out of bed mobility Subjective Agreeable to Therapy Family/Caregiver Present No Precautions Precautions Fall risk Weight Bearing Restrictions Yes LLE Weight Bearing WBAT Precaution Handout Issued No Precaution Comments pt demonstrates understanding of precautions Pain Assessment Pain Assessment No/denies pain Balance Balance Yes Static Sitting Balance Static Sitting-Balance Support Feet supported;Bilateral upper extremity supported Static Sitting-Sitting Surface Chair Static Sitting-Level of Assistance Close supervision Static Sitting-Comment/# of Minutes safety Static Standing Balance Static Standing-Balance Support Bilateral upper extremity supported Static Standing-Standing Surface Floor Static Standing-Level of Assistance Moderate assistance (x2) Static Standing-Comment/# of Minutes balance and safety ADL ADLS (WDL) X Grooming Grooming: Where assessed Chair Grooming: Level of assistance Moderate Assist Grooming: Assistance with Increased time to complete;Balance;Safety LE Dressing LE Dressing: Where assessed Chair LE Dressing: Level of assistance Maximum Assist LE Dressing: Assistance with Increased time to complete;Supervision/safety;Verbal cueing;Requires assistive device for steadying;Don/doff R sock;Don/doff L sock;Thread RLE into pants;Thread LLE into pants;Thread RLE into underwear;Thread LLE into underwear;Pull up over hips Toileting Toileting: Where assessed Chair Toileting: Equipment utilized Bedpan Toileting: Level of assistance Dependent Bed Mobility Bed Mobility No Transfers Transfer Yes Transfer 1 Transfer From 1 Sit Transfer Type 1 To and from Transfer to 1 Stand Technique 1 Sit to stand;Stand to sit Transfer Device 1 Wheeled walker Transfer Level of Assistance 1 Moderate Assist (x2) Trials/Comments 1 Mod Ax2 force production, balance and controlled descent; cues for technique; x3 trials Cognition Overall Cognitive Status WFL Arousal/Alertness Alert Attention Span Appears intact Current communication Appears Intact Orientation Oriented X4 (person, place, time, situation) Following Commands Follows all commands and directions without difficulty Safety Judgment Good awareness of safety precautions Awareness of Errors Good awareness of errors made Insight Fully aware of deficits Problem Solving Able to problem solve independently Compliance/Behavior Easy to engage Perseveration Not present Daily Activity - 6 Clicks Putting on and taking off regular lower body clothing 2 Bathing 2 Toileting 2 Putting on and taking off upper body clothing 2 Personal Grooming 2 Eating Meals 3 Total Score (range 6-24) 13 Score Interpretation 32.03 Safe Environment End of Therapy Session Safe Environment End of Therapy Session Patient left in recliner;Chair alarm in place and activated;RN notified;Call light within reach;Overbed table within reach Assessment Problem List Decreased upper extremity range of motion;Decreased upper extremity strength;Decreasedendurance;Decreased balance;Decreased functional mobility;Decreased ADL independence;Decreased IADLindependence;Decreased frequency/variety of movement;Pain Barriers to Discharge Current Mobility Status;Current ADL Status Barrier Comments fall risk Plan Plan Continue with current plan;If this is the last note, consider this the discharge summary Recommendation/Plan OT Recommendation Inpatient Rehab Facility Patient at high risk for Falls;Readmission;Injury due to decreased ability to care for self;Injury due to reduced functional status;Injury due to balance deficits;Injury at home as patient has not returned to prior level of function;Developing impaired skin integrity Recommend Inpatient Rehab/Acute Rehab due to Ability to actively participate in intensive therapy 3hours/day, 5 days/week or 900 minutes per week;Highly motivated to participate in therapy;Not at baseline due to impaired ability to complete ADLs;Impaired ability to complete functional mobility;Likely to return to the community at discharge with support system in place;Requires greater than 25% physical assistance with most mobility tasks;Requires greater than 25% physical assistance with most ADL tasks;Requires multiple therapy disciplines to address functional deficits;Patient and caregiverrequire specialized skilled training due to new level of function/diagnosis OT Frequency during current admission 5-7x/wk Treatment/Interventions during current admission ADL/IADL retraining;Balance Training;Bed mobility;Compensatory technique education;Endurance training;Functional activity;Functional mobility training;Functional transfer training;Therapeutic activity;Strengthening;Therapeutic exercise;Transfer traini OT Equipment Recommended Wheeled walker Progress during current admission Progressing toward goals OT - Next Appointment 12/16/23 OT Evaluation Complete Yes Time Calculation Start Time 1236 Stop Time 1317 Time Calculation (min) 41 min Multi-Disciplinary Problems (from Occupational Therapy) Active Problems Problem: Dressings Lower Extremities Start Date: 12/11/23 Goal Start Date Expected End Date End Date STG - Patient to complete lower body dressing with modA, AE PRN 12/11/23 12/18/23 -- Problem: Eating Start Date: 12/11/23 Goal Start Date Expected End Date End Date STG - Patient will complete eating with SPV using BUE, built up handle PRN. 12/11/23 12/18/23 -- Problem: Grooming Start Date: 12/11/23 Goal Start Date Expected End Date End Date STG - Patient will complete grooming in unsupported sitting with SPV for task, AE PRN 12/11/23 12/18/23 -- Problem: Transfers Start Date: 12/11/23 Goal Start Date Expected End Date End Date STG - Patient will perform toilet transfer to/from [facility] with Cyrus 12/11/23 12/18/23 -- Problem: OT Misc Start Date: 12/11/23 Goal Start Date Expected End Date End Date OT LTG - Pt will complete standing ADLs and functional transfers with SPV. 12/11/23 01/01/24 -- * Parris Soto NP - 12/15/2023 11:19 AM CDT Images from the original note were not included. 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 She was walking down two steps to her backyard, lost her footing and fell on her left side, landed on thegrass. Denies HS or LOC. HDS on presentation. Primary survey unremarkable. GCS 15. She reports severe pain of the left hip. On exam, pain with passive flexion at the left hip, tender to palpation of the left hip and lumbar back. XR chest, pelvis, left femur, left hip, left shoulder; CT pelvis and left femur done, notable for a left displaced IT fracture. Of note, she denies lightheadedness, dizziness, chest pain, headache, shortness of breath or palpitations prior to the fall. Injury: #Left displaced IT fracture OR 12/08 (Wilfredo) ORIF left IT Edited by: Emy Sanchez NP at 12/10/2023 0718 Interval History: Na 128, started salt tablets, awaiting family to choose facility Objective Medications: Current Facility-Administered Medications: acetaminophen (TYLENOL) tablet 1,000 mg, 1,000 mg, oral, Q6H, Noel Islas MD, 1,000 mg at 12/15/23 0011 ALPRAZolam (XANAX) tablet 0.5 mg, 0.5 mg, oral, BID PRN, Noel Islas MD, 0.5 mg at 12/14/23 1621 calcium carbonate (TUMS) chewable tablet 500 mg, 200 mg of elemental calcium, oral, BID, Parris Soto NP, 500 mg at 12/15/23 0920 carvediloL (COREG) tablet 25 mg, 25 mg, oral, BID with meals (bkfst, dinner), Parris Soto NP, 25 mg at 12/15/23 0924 cholecalciferol (VITAMIN D-3) capsule 1,000 Units, 1,000 Units, oral, Daily, Parris Soto NP, 1,000 Units at 12/15/23 0920 dextrose gel in packet 15 g, 15 g, oral, Q15 Min PRN OR dextrose (D10W) 10% bolus 250 mL, 250 mL, intravenous, Q15 Min PRN, Emy Sanchez NP enoxaparin (LOVENOX) syringe 30 mg, 30 mg, subcutaneous, Q12H MISHA, Emy Sanchez NP, 30 mg at 12/15/23 0918 FLUoxetine (PROzac) capsule 20 mg, 20 mg, oral, Daily, Emy Sanchez NP, 20 mg at 12/15/23 0920 glucagon injection 1 mg, 1 mg, intramuscular, Q30 Min PRN, Emy Sanchez NP insulin lispro (HumaLOG, ADMELOG) 100 unit/mL injection 0-10 Units, 0-10 Units, subcutaneous, TID with meals, Parris Soto NP, 2 Units at 12/15/23 0750 levothyroxine (SYNTHROID) tablet 50 mcg, 50 mcg, oral, Daily, Noel Islas MD, 50 mcg at 12/15/23 0920 lidocaine (ASPERCREME) 4 % patch 1 patch, 1 patch, transdermal, Q24H, Sukhjinder Cao MD, 1patch at 12/14/23 1727 ondansetron (ZOFRAN) injection 4 mg, 4 mg, intravenous, Q4H PRN, Alia Ibarra MD, 4 mg at 12/15/23 0744 oxyCODONE (ROXICODONE) tablet 5 mg, 5 mg, oral, Q4H PRN, Noel Islas MD, 5 mg at 12/15/23 0329 perflutren lipid (DEFINITY) 1.5 mL in sodium chloride 0.9% 10 mL syringe, 1-10 mL, intravenous, Once in imaging, Kevin Corrigan MD perflutren protein-a (OPTISON) 3 mL in sodium chloride 0.9% 8 mL syringe, 1-8 mL, intravenous, Oncein imaging, Kevin Corrigan MD polyethylene glycol (MIRALAX) packet 17 g, 17 g, oral, Daily, Noel Islas MD, 17 g at 12/15/23 09 rosuvastatin (CRESTOR) tablet 20 mg, 20 mg, oral, Daily, Noel Islas MD, 20 mg at 920 senna (SENOKOT) tablet 1 tablet, 1 tablet, oral, Daily PRN, Noel Islas MD, 1 tablet at 12/15/23 0920 Past Medical: Past Medical History: Diagnosis Date Adrenal nodule (HCC) Anxiety Aortic stenosis, moderate Cardiomyopathy (HCC) Diabetes mellitus (HCC) GERD (gastroesophageal reflux disease) Heart murmur HFrEF (heart failure with reduced ejection fraction) (CMS/HCC) (HCC) Hyperlipidemia Hypothyroidism Insomnia Mitral regurgitation Motion sickness NSTEMI (non-ST elevated myocardial infarction) (CMS/HCC) (HCC) Obesity AYAD on CPAP Patellar sleeve fracture of left knee PONV (postoperative nausea and vomiting) Pulmonary embolism (HCC) Sleep apnea Zenker's diverticulum Surgical History: Past Surgical History: Procedure Laterality Date BREAST LUMPECTOMY CHOLECYSTECTOMY HAND SURGERY Left plate & screws HYSTERECTOMY INCISION AND DRAINAGE FEMUR Left 05/22/2019 KIDNEY STONE SURGERY Is&Os: I/O last 2 completed shifts: In: 300 [P.O.:300] Out: 1605 [Urine:1605] I/O this shift: In: - Out: 100 [Urine:100] Physical Exam: 24hr Min/Max: Temp Min: 36.4 ??C (97.5 ??F) Max: 36.8 ??C (98.2 ??F) Pulse Min: 76 Max: 104 BP Min: 91/56 Max: 142/77 Resp Min: 11 Max: 21 SpO2 Min: 96 % Max: 100 % Physical Exam Constitutional: alert and oriented x3 and no acute distress, noted slight weakness on left side with some left droop at corner of left mouth HEENT: Pupils equal, EOMs grossly normal, mucous membranes moist Respiratory: equal chest rise bilaterally and respirations unlabored Abdomen: soft, non-distended, nontender Skin: warm, well perfused and extremities non-edematous Labs/Imaging: Recent Labs Lab Units 12/14/23215012/14/23 0320 12/13/23 2100 WBC K/cumm 7.3 7.5 7.4 HEMOGLOBIN g/dL 8.3* 8.1* 7.0* HEMATOCRIT % 24.9* 24.8* 21.3* PLATELETS K/cumm 177 170 158 Recent Labs Lab Units 12/15/23 0747 12/14/23 21512/13/23 2329 12/13/23 2100 12/13/23 1615 12/13/23 1333 SODIUM mmol/L -- 128* -- 131* -- 132* POTASSIUM PLASMA mmol/L -- 5.3* -- 5.3* -- 5.0* CHLORIDE mmol/L -- 97 -- 101 -- 97 CO2 mmol/L -- 28 -- 26 -- 26 BUN SERUM mg/dL -- 21 -- 28* -- 31* CREATININE mg/dL -- 0.53* -- 0.61 -- 0.63 GLUCOSE mg/dL -- 180 -- 184 -- 207* POC GLUCOSE MONITOR mg/dL 183 200* < > -- < > -- CALCIUM mg/dL -- 8.9 -- 8.5 -- 8.6 < > = values in this interval not displayed. Recent Labs Lab Units 12/08/23 1135 PROTIME (PT) sec 17.1* INR 1.57* No results found. I have independently reviewed and interpreted all relevant lab and radiographic data. Assessment/Plan Trauma Surgical Assessment and Plan Hyponatremia Assessment & Plan 12/14 Na 128, started PO tablets Acute blood loss anemia (ABLA) Assessment & Plan 12/09 Hgb 11-> 8.4, 1 unit PRBC, post transfusion Hgb stable 8.5 12/12 Hgb 6.2, 1unit PRBC, post Hgb 7.1, CTM 12/13 stable Hgb 8.1 12/14 Hgb 8.3, stable Urinary retention Assessment & Plan 12/11 required straight cath overnight,430 mL retained, in the setting of Hyperkalemia placed Lucio 12/13 void trial pending 12/14 voiding without difficulty 1.5L Hyperkalemia Assessment & Plan 12/11 serum K 5.8-> hyperkalemia protocol initiated, EKG unchanged, repeat whole blood K 4.7, placed Lucio 12/12 stable 5.0 12/13 lateral 5.0-5.4, CTM 12/14 5.3, whole blood K 5.1 BMI 34.0-34.9,adult Assessment & Plan BMI 34.18 Sleep apnea Assessment & Plan Patient uses CPAP at home - home machine at bedside Stroke-like symptom Assessment & Plan 12/09 code stroke called after patient noted to have left facial droop and left arm ataxia, taken toCT - stat head CT with - New foci of new hypoattenuation within the right temporal lobe and likely the left temporal lobe,although evaluation is somewhat limited due to beam hardening artifact. Findings are concerning forischemic infarct or cerebritis, possibly in the setting [...] to monitor, improving 12/14 continues to improve Symptomatic hypotension Assessment & Plan 12/09 called to bedside for systolic BP [...] continue Coreg 25 mg BID PO RESOLVED Electrolyte depletion Assessment & Plan 12/09 magnesium and potassium replaced Advanced care planning/counseling discussion Assessment & Plan Discussed with patient at bedside regarding code status. She does not have paperwork with her, however she would like to remain DNR/DNI after surgery today. Spoke with brother, Shahram bedside 12/08 who also supported patients decision for DNR after surgery,order changed to reflect DNR POD 1 DNR (do not resuscitate) Assessment & Plan Patient wishes to be DNR after OR Encounter for medication review Assessment & Plan Medications reviewed and updated in admissions tab Home pharmacy [facility] Discharge planning issues Assessment & Plan 12/08 OR with orthopedics 12/09 code stroke this morning followed by ACT secondary to hypotension. Patient transferred to OU for closer observation 12/10 bedside ECHO 12/11 Hyperkalemia protocol 12/12 required 1u PRBC 12/13 improved, likely ready for discharge tomorrow 10/1 Patient is medically stable for discharge, SW/CM updated. Discharge pending facility acceptance Treatment Plan: started/pending 12/13 Closed nondisplaced intertrochanteric fracture of left femur (HCC) Assessment & Plan - ortho consult - 12/09 OR for ORIF of L intertrochanteric femur fx Plan: Follow up with Dr. Villalobos on 01/17 at 2:15, Weightbearing as tolerated, Post op DVT prophylaxis- resume home Eliquis at discharged -Bone health referral, started Vitamin D Resume home anticoagulation at discharge WAI (generalized anxiety disorder) Assessment & Plan Home xanax, continued PRN Essential hypertension Assessment & Plan home medications Coreg, cozaar, spironolactone 12/09 holding [...] controlled, continue Coreg 25 mg BID PO Type 2 diabetes mellitus without complications ([facility]) ([facility]) Assessment & Plan Continue DM diet with SSI Holding home glipizide and metformin A1C 6.5 Acquired hypothyroidism Assessment & Plan Continue home levothyroxine Paroxysmal atrial fibrillation ([facility]) ([facility]) Assessment & Plan Holding home eliquis and Carvedilol 12/10 A fib controlled HR 100s, restarting Coreg 12.5 mg PO BID (home dose 50 mg PO BID) CTM 12/11 HR 90s a fib rate controlled, continue Coreg 25 mg PO BID 12/13 remains rate controlled 90s, continue Coreg 25 mg PO BID Follow up scheduled: [facility] 01/31 at 1:20 Lines/Drains/Tubes: PIV DVT Prophylaxis: Lovenox Diet: Adult Diet Restricted; Consistent Carbohydrate Activity: WBAT GI Prophylaxis: none Code Status: LIMITED - No CPR Total time spent included the following activities caring for this patient: Patient chart review, Reviewing/obtaining history, Examination and evaluation, Counseling/educating patient/family/caregiver, Ordering medications/tests/procedures, Referring & communicating with other health care taker, Documenting clinical information in the health record, Independent interpretation of results, and Care coordination 30 minutes All care plans discussed with rounding/operative attending: MD Parris Irving NP Cosigned by Abhijit Allen DO at 12/15/2023 1:50 PM CDT * Natalia Robbins, PT - 12/15/2023 10:08 AM CDT Physical Therapy Physical Therapy Progress Note NOTE: This is a summary note of the espitia components of the treatment session. For full details, review chart for all flowsheets documented on by this physical therapy clinician on this date. Vital signs documented in vital signs flowsheet. Care plan progress documented in Care Plan Activity. For questions, please review the treatment team and contact the PT or GLEASON OPERATOR currently assigned to this patient. If a physical therapy clinician is not assigned to this patient, please call [phone]. 12/15/23 1008 PT Last Visit Session Type Treatment PT Received On 12/15/23 Safe Environment Arm band checked;Gait belt utilized for all out of bed mobility Subjective Agreeable to Therapy Family/Caregiver Present No Precautions Precautions Fall risk Weight Bearing Restrictions Yes LLE Weight Bearing WBAT Precaution Handout Issued No Activity Tolerance Activity Tolerance Comments Milvia: Hard Pain Assessment Pain Assessment 0-10 Pain Score 0 - No pain (0/10 at rest, 10/10 with activity) Pain Location Leg Pain Orientation Left Pain Interventions Repositioned Cognition Arousal/Alertness Alert;Appropriate responses to stimuli Orientation Oriented X4 (person, place, time, situation) (Cues for exact date) Following Commands Follows all commands and directions without difficulty Compliance/Behavior Easy to engage Static Sitting Balance Static Sitting-Balance Support Feet supported Static Sitting-Sitting Surface Bed Static Sitting-Level of Assistance Close supervision Dynamic Sitting Balance Dynamic Sitting-Balance Support Feet supported Dynamic Sitting-Balance Lateral lean;Forward lean Dynamic Sitting-Sitting Surface Bed Dynamic Sitting-Level of Assistance Close supervision Supine Supine-Exercises Bilateral;Lower extremity;Specific exercises Supine-Exercise Type Ankle pumps;Quad sets;Glut sets Reps/Sets 20/1 Supine-Motion AROM;Isometric Supine-Exercise Comments Supine warm up with cues Bed Mobility 1 Bed Mobility From 1 Supine Bed Mobility Type 1 To and from Bed Mobility to 1 Side lying-left Level of Assistance 1 Moderate Assist Bed Mobility Comments 1 HOB 0 Bed Mobility 2 Bed Mobility From 2 Supine Bed Mobility Type 2 To Bed Mobility to 2 Edge of Bed Level of Assistance 2 Maximum Assist Bed Mobility Comments 2 HOB 0 Transfer 1 Transfer From 1 Bed Transfer Type 1 To Transfer to 1 Chair with arms Technique 1 Squat pivot;To right Transfer Device 1 No device Transfer Level of Assistance 1 Maximum Assist Ambulation Ambulation No Stairs Stairs No Basic Mobility - 6 Click How much difficulty does the patient have: Turning over in bed 2 How much difficulty does the patient currently have: Sitting down and standing up from a chair witharms? 2 How much difficulty does the patient have: Moving from lying on back to sitting on the side of the bed? 2 How much difficulty does the patient have: Moving to and from a bed to a chair including wheelchair? 2 How much help does the patient currently need: Walk in hospital room? 1 How much help from another person does the patient currently need: Climbing 3-5 steps with a railing? 1 Total 6 Click Score (range 6-24) 10 Score Interpretation 28.13 Safe Environment End of Therapy Session Safe Environment End of Therapy Session Patient left in recliner;Chair alarm in place and activated;RN notified;Call light within reach Assessment Prognosis Good Problem List Gait deviations;Decreased strength;Impaired balance;Decreased mobility;Pain Plan Plan Continue with current plan;If this is the last note, consider this the discharge summary Recommendation/Plan PT Recommendation/Plan Inpatient Rehab Facility Patient at high risk for Falls;Readmission Recommend Inpatient Rehab/Acute Rehab due to Ability to actively participate in intensive therapy 3hours/day, 5 days/week or 900 minutes per week;Highly motivated to participate in therapy;Impaired ability to complete functional mobility;Requires greater than 25% physical assistance with most mobility tasks;Requires multiple therapy disciplines to address functional deficits PT Frequency during current admission 5-7x/wk Treatment/Interventions during current admission Balance Training;Bed mobility;Functional activity;Functional transfer training;Gait training;Parent/caregiver training and education;Positioning;Positioning equipment;Range of motion;Stair training;Strengthening;Therapeutic activity;Therapeutic exercise;Transfer training Progress during current admission Progressing toward goals PT - Next Appointment 12/16/23 Time Calculation Start Time 1008 Stop Time 1048 Time Calculation (min) 40 min Multi-Disciplinary Problems (from Physical Therapy) Active Problems Problem: Mobility Start Date: 12/12/23 Goal Start Date Expected End Date End Date LTG - Patient will ambulate community distance 12/12/23 01/19/24 -- Goal Details: Pt will be able to ambulate 80 ft without an assistive device and with independence. Goal Start Date Expected End Date End Date STG - Patient will ambulate 12/12/23 12/19/23 -- Goal Details: 50ft with LRD as needed, min A Problem: Transfers Start Date: 12/12/23 Goal Start Date Expected End Date End Date STG - Patient to transfer to and from sit to supine 12/12/23 12/19/23 -- Goal Details: Patient will be able to perform bed mobility with independence and least amount of assistance needed. Goal Start Date Expected End Date End Date STG - Patient will transfer sit to and from stand 12/12/23 12/19/23 -- Goal Details: Patient will be able to perform a sit to stand with independence and least amount of needed. * Ehsan Mallory, RD - 12/14/2023 1:19 PM CDT NUTRITION ASSESSMENT Nutrition Status: Patient appears adequately nourished at this time. REASON FOR ASSESSMENT: Screened at Nutrition Risk - At Risk MST Score Encounter Date: 12/14/23 1:19 PM Admission Date: 12/08/2023 LOS: 6 days HPI: Patient is a 83 y.o. female right hand dominant female s/p fall while ascending stairs p/w L intertrochanteric femur fx Objective Past Medical History: Diagnosis Date Adrenal nodule (HCC) Anxiety Aortic stenosis, moderate Cardiomyopathy (HCC) Diabetes mellitus (HCC) GERD (gastroesophageal reflux disease) Heart murmur HFrEF (heart failure with reduced ejection fraction) (CMS/HCC) (HCC) Hyperlipidemia Hypothyroidism Insomnia Mitral regurgitation Motion sickness NSTEMI (non-ST elevated myocardial infarction) (CMS/HCC) (HCC) Obesity AYAD on CPAP Patellar sleeve fracture of left knee PONV (postoperative nausea and vomiting) Pulmonary embolism (HCC) Sleep apnea Zenker's diverticulum Past Surgical History: Procedure Laterality Date BREAST LUMPECTOMY CHOLECYSTECTOMY HAND SURGERY Left plate & screws HYSTERECTOMY INCISION AND DRAINAGE FEMUR Left 05/22/2019 KIDNEY STONE SURGERY Social History Tobacco Use Smoking status: Never Smokeless tobacco: Never Substance and Sexual Activity Drug use: Never Sexual activity: Defer Alcohol Use: Not At Risk (12/09/2023) AUDIT-C Frequency of Alcohol Consumption: Never Average Number of Drinks: Patient does not drink Frequency of Binge Drinking: Never MEDICATION/LAB REVIEW: Scheduled Meds: acetaminophen, 1,000 mg, oral, Q6H bisacodyL, 10 mg, rectal, Once calcium carbonate, 200 mg of elemental calcium, oral, BID carvediloL, 25 mg, oral, BID with meals (bkfst, dinner) cholecalciferol, 1,000 Units, oral, Daily enoxaparin, 30 mg, subcutaneous, Q12H MISHA FLUoxetine, 20 mg, oral, Daily insulin lispro, 0-10 Units, subcutaneous, Q4H MISHA levothyroxine, 50 mcg, oral, Daily lidocaine, 1 patch, transdermal, Q24H polyethylene glycol, 17 g, oral, Daily rosuvastatin, 20 mg, oral, Daily Continuous Infusions: PRN Meds: ALPRAZolam dextrose OR dextrose glucagon ondansetron oxyCODONE perflutren lipid (DEFINITY) 1.5 mL in sodium chloride 0.9% 10 mL syringe perflutren protein-a (OPTISON) 3 mL in sodium chloride 0.9% 8 mL syringe senna Recent Labs Lab Units 12/13/23 2100 12/13/23 1333 12/13/23 0308 12/13/23 0211 12/09/23 2224 12/08/23 1135 SODIUM mmol/L 131* < > 136 133* < > 137 POTASSIUM PLASMA mmol/L 5.3* < > 5.4* 5.3* < > 4.9 CHLORIDE mmol/L 101 < > 102 102 < > 105 CO2 mmol/L 26 < > 28 29 < > 27 BUN SERUM mg/dL 28* < > 28* 29* < > 22 CREATININE mg/dL 0.61 < > 0.63 0.63 < > 0.63 QGF-AJE-HTEXSUU mL/min/1.73 m2 89 < > 89 89 < > 89 CALCIUM mg/dL 8.5 < > 8.7 8.7 < > 10.0 ALBUMIN g/dL -- -- -- -- -- 3.9 PHOSPHORUS PLASMA mg/dL 2.1* -- 1.5* 1.6* < > -- MAGNESIUM mg/dL 1.7 -- 1.8 2.0 < > -- < > = values in this interval not displayed. Recent Labs Lab Units 12/14/23 1151 12/14/23 0816 12/14/23 0312 12/13/23 2329 12/13/23209912/13/23201512/13/23 1615 GLUCOSE mg/dL -- -- -- -- 184 -- -- POC GLUCOSE MONITOR mg/dL 267* 200* 170 185 -- 183 192 No results found for: ALT , AST , BILIRUBIN , ALKPHOS , LIPASE Lab Results Component Value Date HGBA1C 6.5 (H) 12/09/2023 HDL 32 (L) 08/07/2023 LDLCALC 33 08/07/2023 CHOL 94 08/07/2023 TRIG 145 08/07/2023 NURSING ASSESSMENT: Last BM Date: 12/12/23 Bowel Sounds (All Quadrants): Active Donte Scale Score: 19 Skin Integrity: Surgical incision Vital Signs BP: 97/66 Temp: 36.8 ??C (98.2 ??F) Pulse: 79 Resp: 20 SpO2: 98 % Intake/Output Summary (Last 24 hours) at 12/14/2023 1319 Last data filed at 12/14/2023 1105 Gross per 24 hour Intake 1177.08 ml Output 1375 ml Net -197.92 ml Adult Malnutrition Scoring Tool (MST) What diet do you follow at home?: Regular Have You Recently Lost Weight Without Trying?: Yes (Comment) How Much Weight Have You Lost?: 2 - 13 lb Have you been eating poorly because of a decreased appetite?: Yes Malnutrition Screening Tool (MST) Score: 2 Anthropometrics Weight: 84.8 kg (186 lb 15.2 oz) Admission Weight : 84.8 kg Weight Change: 0.00 kg (0.00 lbs) IBW/kg (Calculated) : 49.9 kg Height: 157.5 cm (5' 2.01 ) Weight in (lb) to have BMI = 25: 136.4 BMI (Calculated): 34.2 Wt Readings from Last 10 Encounters: 12/08/23 84.8 kg (186 lb 15.2 oz) 11/06/23 84.8 kg (187 lb) 11/03/23 85 kg (187 lb 8 oz) 11/02/23 85.7 kg (189 lb) 10/09/23 85.7 kg (189 lb) 10/01/23 85 kg (187 lb 8 oz) 09/02/23 85.2 kg (187 lb 14.4 oz) 08/07/23 87.5 kg (192 lb 14.4 oz) 07/27/23 85.7 kg (189 lb) 03/03/23 84.5 kg (186 lb 3.2 oz) ESTIMATED NEEDS: Total Kcal/kg Estimated Needs : 1696 Kcal/k. Type of Weight Used for Estimated Kcals: Current Total Protein Estimated Needs (gm): 89.82 Protein Needs Based on g/k.8 Type of Weight Used for Estimated Protein : [place] Dietary Orders (From admission, onward) Start Ordered 12/14/23 1316 Adult Diet Restricted; Consistent Carbohydrate Diet effective now Comments: Skim milk with meals Question Answer Comment ([facility]) Diet type Restricted Diabetic: Consistent Carbohydrate 12/14/23 1319 12/10/23 1700 Oral Nutrition Supplements ([facility]) Select Supplement: Ensure Plus - Chocolate All Meals Question: ([facility]) Select Supplement: Answer: Ensure Plus - Chocolate 12/10/23 1530 12/09/23 2100 Bedtime snack At bedtime Comments: If bedtime BG is less than 100mg/dl, give patient a 15 gram carbohydrate snack. 12/09/23 0833 Allergies: Reviewed. IMPRESSION: MST for poor appetite and weight loss. Pt reports she had been eating normally prior to admission and weight relatively stable. Keeps blood sugars well controlled at home with metformin BID and glipizide 0-1 tab BID depending on blood sugars. Usually eats 2 meals per day but doesn't cook much, eating primarily healthy choice meals supplemented with premier protein. Appears to have been well nourished prior to admission. Intake inconsistent here. Ensure plus ordered but pt not happy with the sugar content and blood sugars have not been well controlled. Would like it discontinued and skim milk added. NIKKI ([facility]) MALNUTRITION ASSESSMENT: Date of completion: 12/14/23 NUTRITION FOCUSED PHYSICAL EXAM: Not clinically indicated, no concerns for malnutrition at this time. NUTRITION DIAGNOSIS: Nutrition Diagnosis 1: Increased nutrient needs (protein) Related to: Acute illness/injury, Recent surgery Evidenced by: Physical finding, Patient interview INTERVENTION(S): Summary: Meals and snacks, Modify supplement Continue with consistent carb diet Discontinue supplement per pt request Add skim milk TID. Encouraged good intake, discussed protein foods for wound healing. Importance of adequate intake for healing and recovery. Smaller more frequent meals if not able to eat normal amount at one time. Ptreports understanding. Denies questions or concerns with diet. RD will continue to follow. GOAL(S): Adequate nutrition to meet estimated needs by next assessment, Patient/caregiver able to teach backunderstanding of role of diet in disease process prior to discharge MONITORING/EVALUATION: Appetite, Labs, Plan of care, PO intake, Stool patterns Ehsan Mallory RD LD [phone]. Weekends [phone] * Geovanna Villalta OT - 12/14/2023 9:18 AM CDT Occupational Therapy Occupational Therapy Progress Note NOTE: This is a summary note of the espitia components of the treatment session. For full details, review chart for all flowsheets documented on by this occupational therapy clinician on this date. Vitalsigns documented in vital signs flowsheet. Care plan progress documented in Care Plan Activity. For questions, please review the treatment team and contact the occupational therapist currently assigned to this patient. If an occupational therapist is not assigned to this patient, please call [phone]. 12/14/23 0918 General Session Type Treatment OT Received On 12/14/23 Safe Environment Arm band checked;Patient found in supine;Gait belt utilized for all out of bed mobility Subjective Agreeable to Therapy Family/Caregiver Present No Precautions Precautions Fall risk Weight Bearing Restrictions Yes LLE Weight Bearing WBAT Precaution Comments reviewed precautions prior to mobility; pt demonstrates understanding Pain Assessment Pain Assessment 0-10 Pain Score 5 - Moderate pain Pain Location Leg Pain Interventions RN Notified Balance Balance Yes Static Sitting Balance Static Sitting-Balance Support Feet supported;Bilateral upper extremity supported Static Sitting-Sitting Surface Bed Static Sitting-Level of Assistance Contact guard Static Sitting-Comment/# of Minutes safety/ steadying Static Standing Balance Static Standing-Balance Support Bilateral upper extremity supported Static Standing-Level of Assistance Maximum assistance (x2) Static Standing-Comment/# of Minutes balance and safety ADL ADLS (WDL) X Grooming Grooming: Where assessed Chair Grooming: Level of assistance Moderate Assist Grooming: Assistance with Increased time to complete;Balance;Safety Bed Mobility Bed Mobility Yes Bed Mobility 1 Bed Mobility From 1 Supine Bed Mobility Type 1 To Bed Mobility to 1 Edge of bed Level of Assistance 1 Maximum Assist (x2) Bed Mobility Comments 1 Max Ax2 trunk elevation, advancing BLE, positioning hips EOB; second personto assist for posterior trunk support initially Transfers Transfer Yes Transfer 1 Transfer From 1 Sit Transfer Type 1 To and from Transfer to 1 Stand Technique 1 Sit to stand;Stand to sit Transfer Device 1 No device;Hand held assist Transfer Level of Assistance 1 Maximum Assist (x2) Trials/Comments 1 Max Ax2 force production, balance, controlled descent; cues for technique Transfers 2 Transfer From 2 Bed Transfer Type 2 To Transfer to 2 Chair with arms Technique 2 Stand and step Transfer Device 2 No device;Hand held assist Transfer Level of Assistance 2 Maximum Assist (x2) Trials/Comments 2 Max Ax2 force production, balance, shifting weight and controlled descent; cues for technique; bilateral knee buckling Cognition Overall Cognitive Status WFL Arousal/Alertness Alert Attention Span Appears intact Memory Appears intact Current communication Appears Intact Orientation Oriented X4 (person, place, time, situation) Following Commands Follows all commands and directions without difficulty Safety Judgment Good awareness of safety precautions Awareness of Errors Good awareness of errors made Insight Fully aware of deficits Problem Solving Able to problem solve independently Compliance/Behavior Easy to engage Perseveration Not present Other Comments Comments Pt tearful during session. Required rest breaks between mobility 2/2 elevated pain with movement. Daily Activity - 6 Clicks Putting on and taking off regular lower body clothing 2 Bathing 2 Toileting 2 Putting on and taking off upper body clothing 2 Personal Grooming 2 Eating Meals 3 Total Score (range 6-24) 13 Score Interpretation 32.03 Safe Environment End of Therapy Session Safe Environment End of Therapy Session Chair alarm in place and activated;RN notified;Call light within reach;Overbed table within reach;Patient left in recliner Assessment Problem List Decreased upper extremity range of motion;Decreased upper extremity strength;Decreasedendurance;Decreased balance;Decreased functional mobility;Decreased ADL independence;Decreased IADLindependence;Decreased frequency/variety of movement;Pain Barriers to Discharge Current Mobility Status;Current ADL Status Barrier Comments fall risk Plan Plan Continue with current plan;If this is the last note, consider this the discharge summary Recommendation/Plan OT Recommendation (S) Inpatient Rehab Facility Patient at high risk for Falls;Readmission;Injury due to decreased ability to care for self;Injury due to reduced functional status;Injury due to balance deficits;Injury at home as patient has not returned to prior level of function;Developing impaired skin integrity Recommend Inpatient Rehab/Acute Rehab due to Ability to actively participate in intensive therapy 3hours/day, 5 days/week or 900 minutes per week;Highly motivated to participate in therapy;Not at baseline due to impaired ability to complete ADLs;Impaired ability to complete functional mobility;Likely to return to the community at discharge with support system in place;Requires greater than 25% physical assistance with most mobility tasks;Requires greater than 25% physical assistance with most ADL tasks;Requires multiple therapy disciplines to address functional deficits;Patient and caregiverrequire specialized skilled training due to new level of function/diagnosis OT Frequency during current admission 5-7x/wk Treatment/Interventions during current admission ADL/IADL retraining;Balance Training;Bed mobility;Compensatory technique education;Endurance training;Functional activity;Functional mobility training;Functional transfer training;Therapeutic activity;Strengthening;Therapeutic exercise;Transfer traini ng Progress during current admission Progressing toward goals OT - Next Appointment 12/15/23 OT Evaluation Complete Yes Time Calculation Start Time 917 Stop Time 54 Time Calculation (min) 36 min Multi-Disciplinary Problems (from Occupational Therapy) Active Problems Problem: Dressings Lower Extremities Start Date: 12/11/23 Goal Start Date Expected End Date End Date STG - Patient to complete lower body dressing with modA, AE PRN 12/11/23 12/18/23 -- Problem: Eating Start Date: 12/11/23 Goal Start Date Expected End Date End Date STG - Patient will complete eating with SPV using BUE, built up handle PRN. 12/11/23 12/18/23 -- Problem: Grooming Start Date: 12/11/23 Goal Start Date Expected End Date End Date STG - Patient will complete grooming in unsupported sitting with SPV for task, AE PRN 12/11/23 12/18/23 -- Problem: Transfers Start Date: 12/11/23 Goal Start Date Expected End Date End Date STG - Patient will perform toilet transfer to/from [facility] [place] [facility] 12/11/23 12/18/23 -- Problem: OT Misc Start Date: 12/11/23 Goal Start Date Expected End Date End Date OT LTG - Pt will complete standing ADLs and functional transfers with SPV. 12/11/23 01/01/24 -- * Parris Soto NP - 12/14/2023 9:14 AM CDT Images from the original note were not included. 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 She was walking down two steps to her backyard, lost her footing and fell on her left side, landed on thegrass. Denies HS or LOC. HDS on presentation. Primary survey unremarkable. GCS 15. She reports severe pain of the left hip. On exam, pain with passive flexion at the left hip, tender to palpation of the left hip and lumbar back. XR chest, pelvis, left femur, left hip, left shoulder; CT pelvis and left femur done, notable for a left displaced IT fracture. Of note, she denies lightheadedness, dizziness, chest pain, headache, shortness of breath or palpitations prior to the fall. Injury: #Left displaced IT fracture OR 12/08 ([facility]) ORIF left IT Edited by: Emy Sanchez NP at 12/10/2023 0718 Interval History: NAEON, left sided weakness improving, Hgb stable 8.1, A fib well controlled HR 90s, removed Lucio- void check Objective Medications: Current Facility-Administered Medications: acetaminophen (TYLENOL) tablet 1,000 mg, 1,000 mg, oral, Q6H, Noel Islas MD, 1,000 mg at 12/14/23 06 ALPRAZolam (XANAX) tablet 0.5 mg, 0.5 mg, oral, BID PRN, Noel Islas MD, 0.5 mg at 12/13/232048 bisacodyL (DULCOLAX) suppository 10 mg, 10 mg, rectal, Once, Parris Soto NP calcium carbonate (TUMS) chewable tablet 500 mg, 200 mg of elemental calcium, oral, BID, Parris Soto NP, 500 mg at 12/14/23816 carvediloL (COREG) tablet 25 mg, 25 mg, oral, BID with meals (bkfst, dinner), Parris Soto NP, 25 mg at 12/14/23816 cholecalciferol (VITAMIN D-3) capsule 1,000 Units, 1,000 Units, oral, Daily, Parris Soto NP, 1,000 Units at 12/14/23816 dextrose gel in packet 15 g, 15 g, oral, Q15 Min PRN OR dextrose (D10W) 10% bolus 250 mL, 250 mL, intravenous, Q15 Min PRN, Emy Sanchez NP enoxaparin (LOVENOX) syringe 30 mg, 30 mg, subcutaneous, Q12H MISHA, Emy Sanchez NP, 30 mg at 12/14/23816 FLUoxetine (PROzac) capsule 20 mg, 20 mg, oral, Daily, SinkEmy NP, 20 mg at 12/14/23816 glucagon injection 1 mg, 1 mg, intramuscular, Q30 Min PRN, Emy Sanchez NP insulin lispro (HumaLOG, ADMELOG) 100 unit/mL injection 0-10 Units, 0-10 Units, subcutaneous, Q4H MISHA, Emy Sanchez NP, 4 Units at 12/14/23 0818 levothyroxine (SYNTHROID) tablet 50 mcg, 50 mcg, oral, Daily, Noel Islas MD, 50 mcg at 12/14/23 0817 lidocaine (ASPERCREME) 4 % patch 1 patch, 1 patch, transdermal, Q24H, Sukhjinder Cao MD, 1patch at 12/13/23 1812 magnesium citrate oral solution 296 mL, 296 mL, oral, Once, Parris Soto, LM ondansetron (ZOFRAN) injection 4 mg, 4 mg, intravenous, Q4H PRN, Alia Ibarra MD, 4 mg at 12/14/23 0309 oxyCODONE (ROXICODONE) tablet 5 mg, 5 mg, oral, Q4H PRN, Noel Islas MD, 5 mg at 12/14/23 0608 perflutren lipid (DEFINITY) 1.5 mL in sodium chloride 0.9% 10 mL syringe, 1-10 mL, intravenous, Once in imaging, Kevin Corrigan MD perflutren protein-a (OPTISON) 3 mL in sodium chloride 0.9% 8 mL syringe, 1-8 mL, intravenous, Oncein imaging, Kevin Corrigan MD polyethylene glycol (MIRALAX) packet 17 g, 17 g, oral, Daily, Noel Islas MD, 17 g at 12/14/23 0818 rosuvastatin (CRESTOR) tablet 20 mg, 20 mg, oral, Daily, Noel Islas MD, 20 mg at 817 senna (SENOKOT) tablet 1 tablet, 1 tablet, oral, Daily PRN, Noel Islas MD, 1 tablet at 12/14/23 0825 Past Medical: Past Medical History: Diagnosis Date Adrenal nodule (HCC) Anxiety Aortic stenosis, moderate Cardiomyopathy (HCC) Diabetes mellitus (HCC) GERD (gastroesophageal reflux disease) Heart murmur HFrEF (heart failure with reduced ejection fraction) (CMS/HCC) (HCC) Hyperlipidemia Hypothyroidism Insomnia Mitral regurgitation Motion sickness NSTEMI (non-ST elevated myocardial infarction) ([facility]/HCC) (HCC) Obesity AYAD on CPAP Patellar sleeve fracture of left knee PONV (postoperative nausea and vomiting) Pulmonary embolism (HCC) Sleep apnea Zenker's diverticulum Surgical History: Past Surgical History: Procedure Laterality Date BREAST LUMPECTOMY CHOLECYSTECTOMY HAND SURGERY Left plate & screws HYSTERECTOMY INCISION AND DRAINAGE FEMUR Left 05/22/2019 KIDNEY STONE SURGERY Is&Os: I/O last 2 completed shifts: In: 1420.8 [P.O.:450; Blood:720.8; IV Piggyback:250] Out: 1595 [Urine:1595] I/O this shift: In: - Out: 105 [Urine:105] Physical Exam: 24hr Min/Max: Temp Min: 36.3 ??C (97.4 ??F) Max: 37.3 ??C (99.1 ??F) Pulse Min: 84 Max: 106 BP Min: 87/48 Max: 148/71 Resp Min: 12 Max: 21 SpO2 Min: 94 % Max: 100 % Physical Exam Constitutional: alert and oriented x3 and no acute distress, noted slight weakness on left side with some left droop at corner of left mouth HEENT: Pupils equal, EOMs grossly normal, mucous membranes moist Respiratory: equal chest rise bilaterally and respirations unlabored Abdomen: soft, non-distended, nontender Skin: warm, well perfused and extremities non-edematous Lucio - removed Void check Labs/Imaging: Recent Labs Lab Units 12/14/23 0320 12/13/23209912/13/23 1333 WBC K/cumm 7.5 7.4 7.1 HEMOGLOBIN g/dL 8.1* 7.0* 7.1* HEMATOCRIT % 24.8* 21.3* 21.9* PLATELETS K/cumm 170 158 166 Recent Labs Lab Units 12/14/23 0816 12/14/23 0312 12/13/23 2329 12/13/23 2100 12/13/23 1615 12/13/23 1333 12/13/23 0455 12/13/23 0308 SODIUM mmol/L -- -- -- 131* -- 132* -- 136 POTASSIUM PLASMA mmol/L -- -- -- 5.3* -- 5.0* -- 5.4* CHLORIDE mmol/L -- -- -- 101 -- 97 -- 102 CO2 mmol/L -- -- -- 26 -- 26 -- 28 BUN SERUM mg/dL -- -- -- 28* -- 31* -- 28* CREATININE mg/dL -- -- -- 0.61 -- 0.63 -- 0.63 GLUCOSE mg/dL -- -- -- 184 -- 207* -- 168 POC GLUCOSE MONITOR mg/dL 200* 170 185 -- < > -- < > -- CALCIUM mg/dL -- -- -- 8.5 -- 8.6 -- 8.7 < > = values in this interval not displayed. Recent Labs Lab Units 12/08/23 1135 PROTIME (PT) sec 17.1* INR 1.57* No results found. I have independently reviewed and interpreted all relevant lab and radiographic data. Assessment/Plan Trauma Surgical Assessment and Plan Acute blood loss anemia (ABLA) Assessment & Plan 12/09 Hgb 11-> 8.4, 1 unit PRBC, post transfusion Hgb stable 8.5 12/12 Hgb 6.2, 1unit PRBC, post Hgb 7.1, CTM 12/13 stable Hgb 8.1 Urinary retention Assessment & Plan 12/11 required straight cath overnight,430 mL retained, in the setting of Hyperkalemia placed Lucio 12/13 void trial pending Hyperkalemia Assessment & Plan 12/11 serum K 5.8-> hyperkalemia protocol initiated, EKG unchanged, repeat whole blood K 4.7, placed Lucio 12/12 stable 5.0 BMI 34.0-34.9,adult Assessment & Plan BMI 34.18 Sleep apnea Assessment & Plan Patient uses CPAP at home - home machine at bedside Stroke-like symptom Assessment & Plan 12/09 code stroke called after patient noted to have left facial droop and left arm ataxia, taken toCT - stat head CT with - New foci of new hypoattenuation within the right temporal lobe and likely the left temporal lobe,although evaluation is somewhat limited due to beam hardening artifact. Findings are concerning forischemic infarct or cerebritis, possibly in the setting [...] seemed equal, will continue to monitor, improving Symptomatic hypotension Assessment & Plan 12/09 called to bedside for systolic BP [...] controlled, continue Coreg 25 mg PO BID Electrolyte depletion Assessment & Plan 12/09 magnesium and potassium replaced Advanced care planning/counseling discussion Assessment & Plan Discussed with patient at bedside regarding code status. She does not have paperwork with her, however she would like to remain DNR/DNI after surgery today. Spoke with brother, Shahram bedside 12/08 who also supported patients decision for DNR after surgery,order changed to reflect DNR POD 1 DNR (do not resuscitate) Assessment & Plan Patient wishes to be DNR after OR Encounter for medication review Assessment & Plan Medications reviewed and updated in admissions tab [facility] Discharge planning issues Assessment & Plan 12/08 OR with orthopedics 12/09 code stroke this morning followed by ACT secondary to hypotension. Patient transferred to OU for closer observation 12/10 bedside ECHO 12/11 Hyperkalemia protocol 12/12 required 1u PRBC 12/13 improved, likely ready for discharge tomorrow Closed nondisplaced intertrochanteric fracture of left femur (CMS/HCC) (HCC) Assessment & Plan - ortho consult - 12/09 OR for ORIF of L intertrochanteric femur fx Plan: Follow up with Dr. Villalobos on 01/17 at 2:15, Weightbearing as tolerated, Post op DVT prophylaxis- resume home Eliquis at discharged -Bone health referral, started Vitamin D Resume home anticoagulation at discharge WAI (generalized anxiety disorder) Assessment & Plan Home xanax, continued PRN Essential hypertension Assessment & Plan home medications Coreg, cozaar, spironolactone 12/09 holding all home medications secondary to hypotension 12/10 BP 120/80s, HR 100s, will restarting Coreg 12.5 mg PO BID (home dose 50 mg PO BID) 12/11 BP well controlled 130/80, noted HR reamins 100-100, will increase Coreg to 25 mg PO BID 12/13 BP 130/70 HR 90s a fib rate controlled, continue Coreg 25 mg PO BID Type 2 diabetes mellitus without complications (CMS/HCC) ([facility]) Assessment & Plan Continue DM diet with SSI Holding home glipizide and metformin A1C 6.5 Acquired hypothyroidism Assessment & Plan Continue home levothyroxine Paroxysmal atrial fibrillation ([facility]) ([facility]) Assessment & Plan Holding home eliquis and Carvedilol 12/10 A fib controlled HR 100s, restarting Coreg 12.5 mg PO BID (home dose 50 mg PO BID) CTM 12/11 HR 90s a fib rate controlled, continue Coreg 25 mg PO BID 12/13 remains rate controlled 90s, continue Coreg 25 mg PO BID Follow up scheduled: [facility] 01/31 at 1:20 Lines/Drains/Tubes: PIV x2, Lucio- removed Void check DVT Prophylaxis: Lovenox Diet: Adult Diet Restricted; Consistent Carbohydrate Activity: WBAT GI Prophylaxis: none Code Status: LIMITED - No CPR Total time spent included the following activities caring for this patient: Patient chart review, Reviewing/obtaining history, Examination and evaluation, Counseling/educating patient/family/caregiver, Ordering medications/tests/procedures, Referring & communicating with other health care taker, Documenting clinical information in the health record, Independent interpretation of results, and Care coordination 45 minutes All care plans discussed with rounding/operative attending: MD Parris Engel NP Cosigned by Abhijit Allen DO at 12/14/2023 1:25 PM CDT * Parris Soto NP - 12/13/2023 4:51 PM CDT Images from the original note were not included. 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 She was walking down two steps to her backyard, lost her footing and fell on her left side, landed on thegrass. Denies HS or LOC. HDS on presentation. Primary survey unremarkable. GCS 15. She reports severe pain of the left hip. On exam, pain with passive flexion at the left hip, tender to palpation of the left hip and lumbar back. XR chest, pelvis, left femur, left hip, left shoulder; CT pelvis and left femur done, notable for a left displaced IT fracture. Of note, she denies lightheadedness, dizziness, chest pain, headache, shortness of breath or palpitations prior to the fall. Injury: #Left displaced IT fracture OR 12/08 (Wilfredo) ORIF left IT Edited by: Emy Sanchez NP at 12/10/2023 0718 Interval History: till has Left sided weakness, Hgb 6.2-> 1uPRBC- post Hgb 7.1 Objective Medications: Current Facility-Administered Medications: acetaminophen (TYLENOL) tablet 1,000 mg, 1,000 mg, oral, Q6H, Noel Islas MD, 1,000 mg at 12/13/23 100 ALPRAZolam (XANAX) tablet 0.5 mg, 0.5 mg, oral, BID PRN, Noel Islas MD, 0.5 mg at 12/12/232022 calcium carbonate (TUMS) chewable tablet 500 mg, 200 mg of elemental calcium, oral, BID, Parris Soto NP, 500 mg at 12/13/23826 carvediloL (COREG) tablet 25 mg, 25 mg, oral, BID with meals (bkfst, dinner), Parris Soto NP, 25 mg at 12/13/23826 cholecalciferol (VITAMIN D-3) capsule 1,000 Units, 1,000 Units, oral, Daily, Parris Soto NP, 1,000 Units at 12/13/23826 dextrose gel in packet 15 g, 15 g, oral, Q15 Min PRN OR dextrose (D10W) 10% bolus 250 mL, 250 mL, intravenous, Q15 Min PRN, Laura, Emy Dorado NP enoxaparin (LOVENOX) syringe 30 mg, 30 mg, subcutaneous, Q12H MISHA, SinkEmy NP, 30 mg at 12/13/23826 FLUoxetine (PROzac) capsule 20 mg, 20 mg, oral, Daily, Sink, Emy Dorado NP, 20 mg at 12/13/23826 glucagon injection 1 mg, 1 mg, intramuscular, Q30 Min PRN, Emy Sanchez NP insulin lispro (HumaLOG, ADMELOG) 100 unit/mL injection 0-10 Units, 0-10 Units, subcutaneous, Q4H MISHA, SinkEmy NP, 2 Units at 12/13/23 162 levothyroxine (SYNTHROID) tablet 50 mcg, 50 mcg, oral, Daily, Noel Islas MD, 50 mcg at 12/13/23826 lidocaine (ASPERCREME) 4 % patch 1 patch, 1 patch, transdermal, Q24H, Sukhjinder Cao MD, 1patch at 12/12/23 182 ondansetron (ZOFRAN) injection 4 mg, 4 mg, intravenous, Q4H PRN, Alia Ibarra MD, 4 mg at 12/13/23 1624 oxyCODONE (ROXICODONE) tablet 5 mg, 5 mg, oral, Q4H PRN, Noel Islas MD, 5 mg at 12/13/23 1004 perflutren lipid (DEFINITY) 1.5 mL in sodium chloride 0.9% 10 mL syringe, 1-10 mL, intravenous, Once in imaging, Kevin Corrigan MD perflutren protein-a (OPTISON) 3 mL in sodium chloride 0.9% 8 mL syringe, 1-8 mL, intravenous, Oncein imaging, Kevin Corrigan MD polyethylene glycol (MIRALAX) packet 17 g, 17 g, oral, Daily, Noel Islas MD, 17 g at 12/12/23 1038 prochlorperazine (COMPAZINE) injection 5 mg, 5 mg, intravenous, Q6H PRN, Alia Ibarra MD, 5 mg at 12/11/23 0047 rosuvastatin (CRESTOR) tablet 20 mg, 20 mg, oral, Daily, Noel Islas MD, 20 mg at 827 senna (SENOKOT) tablet 1 tablet, 1 tablet, oral, Daily PRN, Noel Islas MD, 1 tablet at 12/13/23 0827 Past Medical: Past Medical History: Diagnosis Date Adrenal nodule (HCC) Anxiety Aortic stenosis, moderate Cardiomyopathy (HCC) Diabetes mellitus (HCC) GERD (gastroesophageal reflux disease) Heart murmur HFrEF (heart failure with reduced ejection fraction) ([facility]/HCC) ([facility]) Hyperlipidemia Hypothyroidism Insomnia Mitral regurgitation Motion sickness NSTEMI (non-ST elevated myocardial infarction) ([facility]/HCC) ([facility]) Obesity AYAD on CPAP Patellar sleeve fracture of left knee PONV (postoperative nausea and vomiting) Pulmonary embolism ([facility]) Sleep apnea Zenker's diverticulum Surgical History: Past Surgical History: Procedure Laterality Date BREAST LUMPECTOMY CHOLECYSTECTOMY HAND SURGERY Left plate & screws HYSTERECTOMY INCISION AND DRAINAGE FEMUR Left 05/22/2019 KIDNEY STONE SURGERY Is&Os: I/O last 2 completed shifts: In: - Out: 1040 [Urine:1040] I/O this shift: In: 793.8 [P.O.:450; Blood:343.8] Out: 725 [Urine:725] Physical Exam: 24hr Min/Max: Temp Min: 36.8 ??C (98.3 ??F) Max: 37.3 ??C (99.1 ??F) Pulse Min: 86 Max: 132 BP Min: 87/56 Max: 146/86 Resp Min: 13 Max: 21 SpO2 Min: 97 % Max: 100 % Physical Exam Constitutional: alert and oriented x3 and no acute distress, noted slight weakness on left side with some left droop at corner of left mouth HEENT: Pupils equal, EOMs grossly normal, mucous membranes moist Respiratory: equal chest rise bilaterally and respirations unlabored Abdomen: soft, non-distended, nontender Skin: warm, well perfused and extremities non-edematous Lucio in place Labs/Imaging: Recent Labs Lab Units 12/13/23 1333 12/13/23 0308 12/13/23 0211 WBC K/cumm 7.1 7.2 See Comment HEMOGLOBIN g/dL 7.1* 6.2* See Comment HEMATOCRIT % 21.9* 19.4* See Comment PLATELETS K/cumm 166 168 See Comment Recent Labs Lab Units 12/13/23 1615 12/13/23 1333 12/13/23 1214 12/13/23 0455 12/13/23 0308 12/13/23 0211 SODIUM mmol/L -- 132* -- -- 136 133* POTASSIUM PLASMA mmol/L -- 5.0* -- -- 5.4* 5.3* CHLORIDE mmol/L -- 97 -- -- 102 102 CO2 mmol/L -- 26 -- -- 28 29 BUN SERUM mg/dL -- 31* -- -- 28* 29* CREATININE mg/dL -- 0.63 -- -- 0.63 0.63 GLUCOSE mg/dL -- 207* -- -- 168 166 POC GLUCOSE MONITOR mg/dL 192 -- 212* < > -- -- CALCIUM mg/dL -- 8.6 -- -- 8.7 8.7 < > = values in this interval not displayed. Recent Labs Lab Units 12/08/23 1135 PROTIME (PT) sec 17.1* INR 1.57* No results found. I have independently reviewed and interpreted all relevant lab and radiographic data. Assessment/Plan Trauma Surgical Assessment and Plan Acute blood loss anemia (ABLA) Assessment & Plan 12/09 Hgb 11-> 8.4, 1 unit PRBC, post transfusion Hgb stable 8.5 12/12 Hgb 6.2, 1unit PRBC, post Hgb 7.1, CTM Urinary retention Assessment & Plan 12/11 required straight cath overnight,430 mL retained, in the setting of Hyperkalemia placed Lucio Hyperkalemia Assessment & Plan 12/11 serum K 5.8-> hyperkalemia protocol initiated, EKG unchanged, repeat whole blood K 4.7, placed Lucio 12/12 stable 5.0 BMI 34.0-34.9,adult Assessment & Plan BMI 34.18 Sleep apnea Assessment & Plan Patient uses CPAP at home - home machine at bedside Stroke-like symptom Assessment & Plan 12/09 code stroke called after patient noted to have left facial droop and left arm ataxia, taken toCT - stat head CT with - New foci of new hypoattenuation within the right temporal lobe and likely the left temporal lobe,although evaluation is somewhat limited due to beam hardening artifact. Findings are concerning forischemic infarct or cerebritis, possibly in the setting [...] of Left side weakness, but is improving Symptomatic hypotension Assessment & Plan 12/09 called to bedside for systolic BP [...] rate controlled 90s, continue Coreg 25mg BID Electrolyte depletion Assessment & Plan 12/09 magnesium and potassium replaced Advanced care planning/counseling discussion Assessment & Plan Discussed with patient at bedside regarding code status. She does not have paperwork with her, however she would like to remain DNR/DNI after surgery today. Spoke with brother, Shahram bedside 12/08 who also supported patients decision for DNR after surgery,order changed to reflect DNR POD 1 DNR (do not resuscitate) Assessment & Plan Patient wishes to be DNR after OR Encounter for medication review Assessment & Plan Medications reviewed and updated in admissions tab [facility] Discharge planning issues Assessment & Plan 12/08 OR with orthopedics 12/09 code stroke this morning followed by ACT secondary to hypotension. Patient transferred to OU for closer observation 12/10 bedside ECHO Closed nondisplaced intertrochanteric fracture of left femur ([facility]) ([facility]) Assessment & Plan - ortho consult - 12/09 OR for ORIF of L intertrochanteric femur fx Plan: Follow up with Dr. Villalobos on 01/17 at 2:15, Weightbearing as tolerated, Post op DVT prophylaxis- resume home Eliquis at discharged -Bone health referral Resume home anticoagulation at discharge WAI (generalized anxiety disorder) Assessment & Plan Home xanax, continued PRN Essential hypertension Assessment & Plan home medications Coreg, cozaar, spironolactone 12/09 holding all home medications secondary to hypotension 12/10 BP 120/80s, HR 100s, will restarting Coreg 12.5 mg PO BID (home dose 50 mg PO BID) 12/11 BP well controlled 130/80, noted HR reamins 100-100, will increase Coreg to 25 mg PO BID Type 2 diabetes mellitus without complications (CMS/HCC) ([facility]) Assessment & Plan Continue DM diet with SSI Holding home glipizide and metformin A1C 6.5 Acquired hypothyroidism Assessment & Plan Continue home levothyroxine Paroxysmal atrial fibrillation (CMS/HCC) ([facility]) Assessment & Plan Holding home eliquis and Carvedilol 12/10 A fib controlled HR 100s, restarting Coreg 12.5 mg PO BID (home dose 50 mg PO BID) CTM Follow up scheduled: [facility] 01/31 at 1:20 Lines/Drains/Tubes: PIV x2, Lucio DVT Prophylaxis: Lovenox Diet: Adult Diet Restricted; Consistent Carbohydrate Activity: WBAT GI Prophylaxis: none Code Status: LIMITED - No CPR Total time spent included the following activities caring for this patient: Patient chart review, Reviewing/obtaining history, Examination and evaluation, Counseling/educating patient/family/caregiver, Ordering medications/tests/procedures, Referring & communicating with other health care taker, Documenting clinical information in the health record, Independent interpretation of results, Care coordination, and Complex wound care 30 minutes All care plans discussed with rounding/operative attending: MD Parris Engel NP Cosigned by Kevin Corrigan MD at 12/13/2023 6:05 PM CDT * Parris Soto NP - 12/12/2023 1:30 PM CDT Images from the original note were not included. 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 She was walking down two steps to her backyard, lost her footing and fell on her left side, landed on thegrass. Denies HS or LOC. HDS on presentation. Primary survey unremarkable. GCS 15. She reports severe pain of the left hip. On exam, pain with passive flexion at the left hip, tender to palpation of the left hip and lumbar back. XR chest, pelvis, left femur, left hip, left shoulder; CT pelvis and left femur done, notable for a left displaced IT fracture. Of note, she denies lightheadedness, dizziness, chest pain, headache, shortness of breath or palpitations prior to the fall. Injury: #Left displaced IT fracture OR 12/08 (Wilfredo) ORIF left IT Edited by: Emy Sanchez NP at 12/10/2023 0718 Interval History: improving Neuro s/o, remains in a fib 100-110s, increased Coreg 25 mg PO BID (home dose 50 mg PO BID) BP well controlled 130/80, noted HR reamins 100-100, will increase Coreg to 25 mg PO BID serum K 5.8-> hyperkalemia protocol initiated, EKG unchanged, repeat whole blood K 4.7, placed Lucio Objective Medications: Current Facility-Administered Medications: acetaminophen (TYLENOL) tablet 1,000 mg, 1,000 mg, oral, Q6H, Noel Islas MD, 1,000 mg at 12/12/23 1232 ALPRAZolam (XANAX) tablet 0.5 mg, 0.5 mg, oral, BID PRN, Noel Islas MD, 0.5 mg at 12/12/23 0802 calcium carbonate (TUMS) chewable tablet 500 mg, 200 mg of elemental calcium, oral, BID, Parris Soto NP carvediloL (COREG) tablet 12.5 mg, 12.5 mg, oral, Once, Parris Soto NP carvediloL (COREG) tablet 25 mg, 25 mg, oral, BID with meals (bkfst, dinner), Parris Soto NP cholecalciferol (VITAMIN D-3) capsule 1,000 Units, 1,000 Units, oral, Daily, Parris Soto NP, 1,000 Units at 12/12/23 1038 dextrose gel in packet 15 g, 15 g, oral, Q15 Min PRN OR dextrose (D10W) 10% bolus 250 mL, 250 mL, intravenous, Q15 Min PRN, Emy Sanchez NP enoxaparin (LOVENOX) syringe 30 mg, 30 mg, subcutaneous, Q12H MISHA, SinkEmy NP, 30 mg at 12/12/23 1038 FLUoxetine (PROzac) capsule 20 mg, 20 mg, oral, Daily, SinkEmy NP, 20 mg at 12/12/23 1038 glucagon injection 1 mg, 1 mg, intramuscular, Q30 Min PRN, Emy Sanchez NP insulin lispro (HumaLOG, ADMELOG) 100 unit/mL injection 0-10 Units, 0-10 Units, subcutaneous, Q4H MISHA, Emy Sanchez NP, 2 Units at 12/12/23 1232 levothyroxine (SYNTHROID) tablet 50 mcg, 50 mcg, oral, Daily, Noel Islas MD, 50 mcg at 12/12/23 1038 lidocaine (ASPERCREME) 4 % patch 1 patch, 1 patch, transdermal, Q24H, Sukhjinder Cao MD, 1patch at 12/11/23 1130 ondansetron (ZOFRAN) injection 4 mg, 4 mg, intravenous, Q4H PRN, Alia Ibarra MD, 4 mg at 12/12/23 0028 oxyCODONE (ROXICODONE) tablet 5 mg, 5 mg, oral, Q4H PRN, Noel Islas MD, 5 mg at 12/10/23 0755 perflutren lipid (DEFINITY) 1.5 mL in sodium chloride 0.9% 10 mL syringe, 1-10 mL, intravenous, Once in imaging, Kevin Corrigan MD perflutren protein-a (OPTISON) 3 mL in sodium chloride 0.9% 8 mL syringe, 1-8 mL, intravenous, Oncein imaging, Kevin Corrigan MD polyethylene glycol (MIRALAX) packet 17 g, 17 g, oral, Daily, Noel Islas MD, 17 g at 12/12/23 1038 prochlorperazine (COMPAZINE) injection 5 mg, 5 mg, intravenous, Q6H PRN, Alia Ibarra MD, 5 mg at 12/11/23 0047 rosuvastatin (CRESTOR) tablet 20 mg, 20 mg, oral, Daily, Noel Islas MD, 20 mg at 038 senna (SENOKOT) tablet 1 tablet, 1 tablet, oral, Daily PRN, Noel Islas MD, 1 tablet at 12/12/23 1038 Past Medical: Past Medical History: Diagnosis Date Adrenal nodule (HCC) Anxiety Aortic stenosis, moderate Cardiomyopathy (HCC) Diabetes mellitus (HCC) GERD (gastroesophageal reflux disease) Heart murmur HFrEF (heart failure with reduced ejection fraction) (CMS/HCC) (HCC) Hyperlipidemia Hypothyroidism Insomnia Mitral regurgitation Motion sickness NSTEMI (non-ST elevated myocardial infarction) ([facility]/HCC) (HCC) Obesity AYAD on CPAP Patellar sleeve fracture of left knee PONV (postoperative nausea and vomiting) Pulmonary embolism ([facility]) Sleep apnea Zenker's diverticulum Surgical History: Past Surgical History: Procedure Laterality Date BREAST LUMPECTOMY CHOLECYSTECTOMY HAND SURGERY Left plate & screws HYSTERECTOMY INCISION AND DRAINAGE FEMUR Left 05/22/2019 KIDNEY STONE SURGERY Is&Os: I/O last 2 completed shifts: In: 620 [P.O.:620] Out: 790 [Urine:790] I/O this shift: In: - Out: 275 [Urine:275] Physical Exam: 24hr Min/Max: Temp Min: 36.6 ??C (97.9 ??F) Max: 37.1 ??C (98.8 ??F) Pulse Min: 87 Max: 118 BP Min: 91/52 Max: 142/79 Resp Min: 12 Max: 21 SpO2 Min: 95 % Max: 100 % Physical Exam Constitutional: alert and oriented x3 and no acute distress, noted slight weakness on left side with some left droop at corner of left mouth HEENT: Pupils equal, EOMs grossly normal, mucous membranes moist Respiratory: equal chest rise bilaterally and respirations unlabored Abdomen: soft, non-distended, nontender Skin: warm, well perfused and extremities non-edematous Lucio replaced Labs/Imaging: Recent Labs Lab Units 12/11/23214612/10/23213612/10/23 1217 WBC K/cumm 6.7 5.6 5.8 HEMOGLOBIN g/dL 7.9* 8.5* 8.4* HEMATOCRIT % 24.2* 25.8* 25.8* PLATELETS K/cumm 183 143* 162 Recent Labs Lab Units 12/12/23 1222 12/12/23 1036 12/12/23 0926 12/12/23 0741 12/12/23 0727 12/12/23 0406 [id number]/11/[id number] SODIUM mmol/L -- -- -- -- -- 136 -- 135 -- 135 POTASSIUM PLASMA mmol/L -- -- -- -- 5.1* 5.8* -- 5.4* -- 4.6 CHLORIDE mmol/L -- -- -- -- -- 105 -- 104 -- 104 CO2 mmol/L -- -- -- -- -- 27 -- 26 -- 25 BUN SERUM mg/dL -- -- -- -- -- 29* -- 27* -- 32* CREATININE mg/dL -- -- -- -- -- 0.54* -- 0.55* -- 0.79 GLUCOSE mg/dL -- -- -- -- -- 181 -- 188 -- 178 POC GLUCOSE MONITOR mg/dL 212* 261* 273* < > -- -- < > -- < > -- CALCIUM mg/dL -- -- -- -- -- 8.5 -- 8.2* -- 8.0* < > = values in this interval not displayed. Recent Labs Lab Units 12/08/23 1135 PROTIME (PT) sec 17.1* INR 1.57* XR Chest 1 View Result Date: 12/11/2023 Comparison 12/08/2023. Calcified granulomas in the lungs. The lungs are clear without consolidation, pleural effusion, or pneumothorax. No pulmonary edema. Unchanged cardiomegaly including marked left atrial enlargement. Electronically signed by: Ned Arreola M.D. XR Abdomen Ap 1 Vw Result Date: 12/11/2023 A single view of the abdomen is submitted for evaluation. Normal bowel gas pattern. Partially imaged proximal left femur internal instrumentation. Dictated by: Nestor Quiroga MD The radiology attending physician has personally reviewed this study, and had reviewed and/or edited this written report andagrees with it. Electronically signed by: Anthony Wilburn M.D. I have independently reviewed and interpreted all relevant lab and radiographic data. Assessment/Plan Trauma Surgical Assessment and Plan Urinary retention Assessment & Plan 12/11 required straight cath overnight,430 mL retained, in the setting of Hyperkalemia placed Lucio Hyperkalemia Assessment & Plan 12/11 serum K 5.8-> hyperkalemia protocol initiated, EKG unchanged, repeat whole blood K 4.7, placed Lucio BMI 34.0-34.9,adult Assessment & Plan BMI 34.18 Sleep apnea Assessment & Plan Patient uses CPAP at home - home machine at bedside Stroke-like symptom Assessment & Plan 12/09 code stroke called after patient noted to have left facial droop and left arm ataxia, taken toCT - stat head CT with - New foci of new hypoattenuation within the right temporal lobe and likely the left temporal lobe,although evaluation is somewhat limited due to beam hardening artifact. Findings are concerning forischemic infarct or cerebritis, possibly in the setting [...] of Left side weakness, but is improving Symptomatic hypotension Assessment & Plan 12/09 called to bedside for systolic BP [...] increase Coreg to 25 mg PO BID Electrolyte depletion Assessment & Plan 12/09 magnesium and potassium replaced Advanced care planning/counseling discussion Assessment & Plan Discussed with patient at bedside regarding code status. She does not have paperwork with her, however she would like to remain DNR/DNI after surgery today. Spoke with brother, Shahram bedside 12/08 who also supported patients decision for DNR after surgery,order changed to reflect DNR POD 1 DNR (do not resuscitate) Assessment & Plan Patient wishes to be DNR after OR Encounter for medication review Assessment & Plan Medications reviewed and updated in admissions tab [facility] Discharge planning issues Assessment & Plan 12/08 OR with orthopedics 12/09 code stroke this morning followed by ACT secondary to hypotension. Patient transferred to OU for closer observation 12/10 bedside ECHO Closed nondisplaced intertrochanteric fracture of left femur (CMS/[facility]) ([facility]) Assessment & Plan - ortho consult - 12/09 OR for ORIF of L intertrochanteric femur fx Plan: Follow up with Dr. Villalobos on 01/17 at 2:15, Weightbearing as tolerated, Post op DVT prophylaxis- resume home Eliquis at discharged -Bone health referral Resume home anticoagulation at discharge WAI (generalized anxiety disorder) Assessment & Plan Home xanax, continued PRN Essential hypertension Assessment & Plan home medications Coreg, cozaar, spironolactone 12/09 holding all home medications secondary to hypotension 12/10 BP 120/80s, HR 100s, will restarting Coreg 12.5 mg PO BID (home dose 50 mg PO BID) 12/11 BP well controlled 130/80, noted HR reamins 100-100, will increase Coreg to 25 mg PO BID Type 2 diabetes mellitus without complications (CMS/HCC) ([facility]) Assessment & Plan Continue DM diet with SSI Holding home glipizide and metformin A1C 6.5 Acquired hypothyroidism Assessment & Plan Continue home levothyroxine Paroxysmal atrial fibrillation ([facility]) ([facility]) Assessment & Plan Holding home eliquis and Carvedilol 12/10 A fib controlled HR 100s, restarting Coreg 12.5 mg PO BID (home dose 50 mg PO BID) CTM Follow up scheduled: [facility] 01/31 at 1:20 Lines/Drains/Tubes: PIV x2, Lucio DVT Prophylaxis: Lovenox Diet: Adult Diet Restricted; Consistent Carbohydrate Activity: WBAT GI Prophylaxis: none Code Status: LIMITED - No CPR Total time spent included the following activities caring for this patient: Patient chart review, Reviewing/obtaining history, Examination and evaluation, Counseling/educating patient/family/caregiver, Ordering medications/tests/procedures, Referring & communicating with other health care taker, Documenting clinical information in the health record, Independent interpretation of results, and Care coordination 30 minutes All care plans discussed with rounding/operative attending: MD Parris Engel NP Cosigned by Kevin Corrigan MD at 12/12/2023 1:50 PM CDT * William Celestin - 12/12/2023 11:43 AM CDT Physical Therapy Physical Therapy Evaluation Note NOTE: This is a summary note of the espitia components of the evaluation session. For full details, review chart for all flowsheets documented on by this physical therapy clinician on this date. Vital signs are documented in the vital signs flowsheet. For questions, please review the treatment team and contact the PT or GLEASON OPERATOR currently assigned to this patient. If a physical therapy clinician is not assigned to this patient, please call [phone]. 12/12/23 1145 General Chart Reviewed Yes Session Type Evaluation PT Received On 12/12/23 Safe Environment Arm band checked;Patient found in supine;Gait belt utilized for all out of bed mobility Subjective Agreeable to Therapy Family/Caregiver Present Yes (Brother) Physical Therapy-Patient Goal PT agreeble to goals established by SPT Current Functional Status PT Functional Mobility Pt is independent at baseline but requires Max A for functional mobility Precautions Precautions Fall risk Weight Bearing Restrictions Yes LLE Weight Bearing WBAT Precaution Comments Reviewed precautions verbally Home Living Type of Home House Home Layout One level Home Access Stairs to enter with rails Entrance Stairs-Rails Both Entrance Stairs-Number of Steps 5 Home Mobility Equipment-Available Wheeled walker;Single point cane Home Mobility Equipment-Currently Using None Prior Function Level of [place] Independent with ADLs;Independent functional transfers;Independent with ambulation Lives With Alone Receives Help From Family;Neighbor (Communication Engineer assist) Fall within the last 6 months Yes Fall within the last 6 months comment 1 fall which lead her to this admission Activity Tolerance Activity Tolerance Comments RPE: Deferred Pain Assessment Pain Assessment No/denies pain Pain Location Groin Pain Orientation Anterior Cognition Orientation Oriented X4 (person, place, time, situation) Following Commands Follows all commands and directions without difficulty Safety Judgment Decreased awareness of need for assistance Compliance/Behavior Easy to engage (Pt at first stated she had pain but was agreeble to physical therapy) Balance Tests Balance Tests Yes Benavides Balance Scale 1. Sitting to Standing 0 2. Standing Unsupported 0 3. Sitting with Back Unsupported but Feet Supported on Floor or on a Stool 3 4. Standing to Sitting 0 5. Transfers 0 6. Standing Unsupported with Eyes Closed 0 7. Standing Unsupported with Feet Together 0 8. Reach Forward with Outstretched Arm While Standing 0 9. Public Works Commissioner Object from Floor from a Standing Position 0 10. Turning to Look Behind Over Left and Right Shoulders While Standing 0 11. Turn [address] Altern[address] Foot on Step or Stool While Standing Unsupported 0 13. Standing Unsupported One Foot in Front 0 14. Standing on One Leg 0 Benavides Balance Score 3 Balance Balance Yes Static Sitting Balance Static Sitting-Balance Support Bilateral upper extremity supported Static Sitting-Sitting Surface Bed Static Sitting-Level of Assistance Close supervision;Moderate assistance Static Sitting-Comment/# of Minutes PT and SPT near pt while she was sitting. Verbal cues to use UEto support her trunk balance Static Standing Balance Static Standing-Balance Support Bilateral upper extremity supported Static Standing-Standing Surface Floor Static Standing-Level of Assistance Maximum assistance Static Standing-Comment/# of Minutes Max Ax2, Pt held onto SPT and PT Bed Mobility Bed Mobility Yes Bed Mobility 1 Bed Mobility From 1 Supine Bed Mobility Type 1 To Bed Mobility to 1 Edge of bed Level of Assistance 1 Maximum Assist Bed Mobility Comments 1 Max Ax2, SPT assisted with trunk and PT assisted with LEs. Transfers Transfer Yes Transfer 1 Transfer From 1 Sit Transfer Type 1 To and from Transfer to 1 Stand Technique 1 Sit to stand Transfer Device 1 No device Transfer Level of Assistance 1 Moderate Assist Trials/Comments 1 Mod Ax2 Transfers 2 Transfer From 2 Stand;Bed Transfer Type 2 To Transfer to 2 Chair with arms Technique 2 Stand and step Transfer Device 2 No device Transfer Level of Assistance 2 Maximum Assist Trials/Comments 2 Max Ax2, Pt held onto SPT and PT while verbally cued to take small steps towards the chair. Ambulation Ambulation No Stairs Stairs No RLE Assessment RLE Assessment WFL LLE Assessment LLE Assessment X LLE Comments PROM performed due to pain and swelling in the L LE. Other Comments Other PT Comments Pt is agreeble to POC and DC recs set byt PT Basic Mobility - 6 Click How much difficulty does the patient have: Turning over in bed 2 How much difficulty does the patient currently have: Sitting down and standing up from a chair witharms? 2 How much difficulty does the patient have: Moving from lying on back to sitting on the side of the bed? 2 How much difficulty does the patient have: Moving to and from a bed to a chair including wheelchair? 2 How much help does the patient currently need: Walk in hospital room? 1 How much help from another person does the patient currently need: Climbing 3-5 steps with a railing? 1 Total 6 Click Score (range 6-24) 10 Safe Environment End of Therapy Session Safe Environment End of Therapy Session Patient left in recliner;Chair alarm in place and activated;RN notified;Call light within reach Assessment Prognosis Good Problem List Decreased strength;Decreased range of motion;Decreased endurance;Impaired balance;Decreased mobility;Pain Problem List Comments Left IT fx s/p ORIF with screw results in above listed activity deficits and impairments which prevent full participation in home and community mobility Barriers to Discharge Current Mobility Status;Inaccessible home environment;Decreased caregiver support Plan Plan If this is the last note, consider this the discharge summary;Plan of care initiated Recommendation/Plan PT Recommendation/Plan Inpatient Rehab Facility Patient at high risk for Readmission;Falls;Injury due to decreased ability to care for self;Injury due to reduced functional status;Injury at home as patient has not returned to prior level of function Recommend Inpatient Rehab/Acute Rehab due to Ability to actively participate in intensive therapy 3hours/day, 5 days/week or 900 minutes per week;Not at baseline due to impaired ability to complete ADLs;Requires greater than 25% physical assistance with most mobility tasks PT Frequency during current admission 5-7x/wk Treatment/Interventions during current admission Balance Training;Bed mobility;Endurance training;Functional activity;Neuromuscular re- education;Therapeutic activity;Therapeutic exercise;Strengthening PT Equipment Recommended None PT - Next Appointment 12/14/23 PT Evaluation Complete Yes Time Calculation Start Time 1143 Stop Time 1212 Time Calculation (min) 29 min Multi-Disciplinary Problems (from Physical Therapy) Active Problems Problem: Mobility Start Date: 12/12/23 Goal Start Date Expected End Date End Date LTG - Patient will ambulate community distance 12/12/23 01/19/24 -- Goal Details: Pt will be able to ambulate 80 ft without an assistive device and with independence. Goal Start Date Expected End Date End Date STG - Patient will ambulate 12/12/23 12/19/23 -- Goal Details: With LRD as needed, ambulate 120 ft with modified independence. Problem: Transfers Start Date: 12/12/23 Goal Start Date Expected End Date End Date STG - Patient to transfer to and from sit to supine 12/12/23 12/19/23 -- Goal Details: Patient will be able to perform bed mobility with independence and least amount of assistance needed. Goal Start Date Expected End Date End Date STG - Patient will transfer sit to and from stand 12/12/23 12/19/23 -- Goal Details: Patient will be able to perform a sit to stand with independence and least amount of needed. Cosigned by Adilia Thomas PT at 12/12/2023 4:09 PM CDT * Koko Merida MD - 12/12/2023 5:59 AM CDT Orthopaedic Trauma Service Daily Progress Note Admit Date: 12/08/2023 Hospital Day: 4 [facility] Dx: L IT fx Injury Mechanism: fall going up a step OI: None PMHx: L DFR s/p distal femur fx (2019), Afib on eliquis, PE, HTN, HLD, T2DM, CHF, CVA with right sided residual Procedure(s): 12/09/23: DHS L IT fx Interval History: 12/12/23: AFVSS. Hgb 7.9 (8.5). WBC 6.7. Pain controlled. Dressings changed this AM, incisino c/d/I. OT rec IPR, PT recs pending. Plan: OTS will s/o and follow peripherally. Please call with questions/concerns. Objective Vitals: 24hr Min/Max: Temp Min: 36.6 ??C (97.9 ??F) Max: 37.1 ??C (98.8 ??F) Pulse Min: 88 Max: 118 BP Min: 91/52 Max: 154/84 Resp Min: 12 Max: 21 SpO2 Min: 95 % Max: 100 % I/O last 2 completed shifts: In: 520 [IV Piggyback:520] Out: 825 [Urine:825] I/O this shift: In: 620 [P.O.:620] Out: 550 [Urine:550] Physical Exam: Gen: No acute distress Alert and oriented: x3 Extremity Left Lower extremity Dressing/wound: dressing taken down and changed, incision clean/dry/intact Immobilization: n/a Sensation: intact to light touch in the superficial peroneal, deep peroneal, and tibial distributions Motor: fires tibialis anterior, gastroc-soleus complex, extensor hallucis longus, flexor hallucis longus Perfusion: toes WWP Lab/Diagnostic Review: Recent Labs Lab Units 12/12/23 0406 12/11/23 2347 12/11/23 2147 12/08/232 12/08/23 1135 SODIUM mmol/L 136 -- 135 < > 137 POTASSIUM PLASMA mmol/L 5.8* -- 5.4* < > 4.9 CHLORIDE mmol/L 105 -- 104 < > 105 CO2 mmol/L 27 -- 26 < > 27 ANIONGAP mmol/L 4 -- 5 < > 5 GLUCOSE mg/dL 181 -- 188 < > 105 POC GLUCOSE MONITOR -- < > -- < > -- BUN SERUM mg/dL 29* -- 27* < > 22 CREATININE mg/dL 0.54* -- 0.55* < > 0.63 CALCIUM mg/dL 8.5 -- 8.2* < > 10.0 ALBUMIN g/dL -- -- -- -- 3.9 ALK PHOS Units/L -- -- -- -- 75 ALT Units/L -- -- -- -- 21 AST Units/L -- -- -- -- 25 BILIRUBIN TOTAL mg/dL -- -- -- -- 0.4 WBC K/cumm -- -- 6.7 < > 6.5 HEMOGLOBIN g/dL -- -- 7.9* < > 11.3* HEMATOCRIT % -- -- 24.2* < > 35.0* PLATELETS K/cumm -- -- 183 < > 204 NEUTROS PCT % -- -- -- -- 73.8 LYMPHS PCT % -- -- -- -- 16.9 MONOS PCT % -- -- -- -- 7.4 EOS PCT % -- -- -- -- 1.2 APTT sec -- -- -- -- 33 INR -- -- -- -- 1.57* < > = values in this interval not displayed. Micro: Lab Results Component Value Date MICROBIOLOGY 05/25/2021 Final Report: Less than 100,000 colonies/mL (clinically insignificant growth based on current clinical standards) MICROBIOLOGY Final Report: Negative 05/29/2019 Assessment/Plan: 83 y.o. female p/w the above injuries. Patient is now status post L DHS plate for L IT fx WB Status: Weight bearing as tolerated left lower extremity Immobilization: na Activity: Ambulate with assist after OR Therapy: PT/OT for OOB/mobilization as tolerated after OR Precautions: None DVT ppx: Unilateral lower extremity injury: Lovenox 40mg QHS postop while in the hospital, on discharge transition to Aspirin 81mg BID x 14 days to take with food OR continue Lovenox 40mg QHS if patient will return for further orthopaedic surgery Drain: n/a Antibiotics: Periop: Ancef 1-2gm IV Q8hrs for 24 hours postoperative Cultures: na Wound Care: Surgical dressings will be changed on POD3. Okay for nursing to reinforce dressings PRNif they become soiled or have shadowing before that time Sutures/Harrah: Will be removed 3 weeks after surgical date. Please include on discharge orders ifpatient is going to a facility. If the patient is still in the hospital at that time they will be removed by the orthopedic team. Lucio: Per primary Diet: Per primary Additional Needs: Bone health referral at discharge Ortho Trauma will sign off at this time, and follow their hospital course peripherally. Please callwith any concerns. Dispo: Pending progress, postoperative recovery, and progress with therapy Follow-Up: Patient has follow up scheduled on 01/18/[address] Villalobos located at [facility] Please call with questions during daytime. See below for overnight issues. If you know the resident's name on the appropriate orthopaedic surgery team, please use [email or web address] to page resident directly. If questions arise and the appropriate resident can't be reached or you are calling overnight, please contact [phone] ([place]- 7:30 PM - 6:30 AM - Floor Resident) or [phone] (24 hours/day - Consult Resident) Cosigned by Homer Villalobos MD at 12/14/2023 9:03 AM CDT * Maria Luz Hunter - 12/11/2023 12:45 PM CDT [facility] Spiritual Care Note Chaplain Rabbi Maria Luz Hunter Triage: [phone] 12/11/23 1200 Time Spent Start Time 1225 Stop Time 1240 Time Calculation (min) 15 min Patient Spiritual Assessment Spirituality Assessed Yes Evangelical Affiliation [employer] [place] Active in Samaritan Yes Spiritual Needs Prayer Clinical Encounter Type Visited With Patient and family together Response Type Routine visit Routine Visit Introduction Reason for visit Support Referral From Patient Outcomes and Progress Aligning care with patient's values Achieved Preserve dignity and respect Achieved Demonstrating care and respect Achieved Jina affirmation Achieved Establish rapport and connectedness Achieved Interventions Interventions Prayer;Active listening;Offer emotional support;Offer spiritual/amish support;Explore jina and values Plan Future Plan Spiritual care services remain available as needed. * Molly Xavier OT - 12/11/2023 11:50 AM CDT Occupational Therapy Occupational Therapy Evaluation Note NOTE: This is a summary note of the espitia components of the evaluation session. For full details, review chart for all flowsheets documented on by this occupational therapy clinician on this date. Vital signs are documented in vital signs flowsheet. For questions, please review the treatment team and contact the occupational therapist currently assigned to this patient. If an occupational therapist is not assigned to this patient, please call [phone]. 12/11/23 1154 General Chart Reviewed Yes Session Type Evaluation OT Received On 12/11/23 Safe Environment Arm band checked;Patient found in supine;Session completed bedside;Gait belt utilized for all out of bed mobility Subjective Agreeable to Therapy Family/Caregiver Present Yes (family arrived and left prior to mobility) Occupational Therapy-Patient Goal Pt agreeable to OT POC Precautions Precautions Fall risk (MAP >65) Weight Bearing Restrictions Yes LLE Weight Bearing WBAT Precaution Comments reviewed precautions prior to mobility Home Living Type of Home House Home Layout One level;Basement (Pt rarely goes down to the basement) Home Access Stairs to enter with rails Entrance Stairs-Rails Both Entrance Stairs-Number of Steps 5 Bathroom Shower/Tub Tub/shower unit Bathroom Toilet Standard Bathroom Equipment Shower chair;Grab bars in shower/tub Bathroom Accessibility Accessible via walker Home Mobility Equipment-Available Wheeled walker;Single point cane Home Mobility Equipment-Currently Using None Home ADL Equipment-Available Motor Vehicles Supervisor Home ADL Equipment-Currently Using None Prior Function Level of [place] Independent with ADLs;Independent functional transfers;Independent with ambulation;Independent with homemaking with ambulation Lives With Alone Receives Help From Family;Neighbor (son 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 Fall within the last 6 months Yes Fall within the last 6 months comment 1 fall leading to current admission ADL ADLS (WDL) X Grooming Grooming: Where assessed Chair Grooming: Level of assistance Maximum Assist Grooming: Assistance with Increased time to complete;Manipulation of containers (decreased L hand coordination and functional strength) LE Dressing LE Dressing: Where assessed Chair LE Dressing: Level of assistance Dependent Room Mobility Room Mobility comment NT Toilet Transfers Toilet Transfer From Bed Toilet Transfer Type To Toilet Transfer to (chair with arms) Toilet Transfer Technique Stand and Step Toilet Transfer: Equipment Hand hold Toilet Transfers Moderate assistance (x2) Toilet Transfers Comments assist x2 for force production balance and controlled descent Pain Assessment Pain Assessment No/denies pain Pain Score 0 - No pain Chronic Pain Precipitating Factors At Rest Vision-Basic Assessment Current Vision Wears glasses only for reading (Pt reports wearing reading glasses all the time) Cognition Overall Cognitive Status WFL Arousal/Alertness Alert;Appropriate responses to stimuli Attention Span Appears intact Memory Decreased short term memory (per SBT) Current communication Appears Intact Orientation Oriented X4 (person, place, time, situation) Following Commands Follows all commands and directions without difficulty Safety Judgment Good awareness of safety precautions Awareness of Errors Good awareness of errors made Insight Fully aware of deficits Problem Solving Able to problem solve independently Compliance/Behavior Easy to engage Perseveration Not present Cognitive Tests Cognitive Tests Yes Short Blessed Test What year is it now? 0 What month is it now? 0 Repeat this name and address after me Miguel Carrasquillo [address] [place] [address] Without looking at the clock, tell me what time it is 0 Count aloud backwards from 20-1 0 Say the months of the year backwards in reverse order 0 Repeat the name and address I asked you to remember 2 Short Blessed Total Score 2 Short Blessed Comments WNL Mesulam Cancellation Test Mesulam Unstructured Left Omissions 1 Right Omissions 8 Neglect Score -7 (Hx of CVA affecting R side, however Pt reports no residual deficits of prior CVA.) Time to Complete 5 min Trails A & B (Longs Making Test) Patient completed Trails A in (seconds) 87 Trails A # of errors 0 Trails A score evaluation WNL Unable to complete Trails B due to (Trails B deferred 2/2 Pt requiring max VCs to complete Trails B sample) Sensation Light Touch WFL (BUE) Numbness/Tingling No Sensation Comments no edema noted in BUE Coordination Movements Are Fluid and Coordinated 1 Fine Motor WFL Serial Opposition WFL;Fair (Fair LUE) Hand Preference Hand Preference Right Hand Function Coordination Functional Gross Grasp Functional Reach/Grasp RUE Reach WFL LUE Reach WFL RUE Grasp Gross grasp (5/5) LUE Grasp Gross grasp (4+/5) Balance Tests Balance Tests Yes Tinetti Sitting Balance 1 Arises 0 Attempts to Arise 0 Immediate Standing Balance (First 5 Seconds) 0 Standing Balance 0 Nudged 0 Eyes Closed 0 Turned 360 Degrees: Steadiness 0 Turned 360 Degrees: Continuity of Steps 0 Sitting Down 0 Balance Score 1 Balance Balance Yes Static Sitting Balance Static Sitting-Balance Support Bilateral upper extremity supported Static Sitting-Sitting Surface Bed Static Sitting-Level of Assistance Close supervision Static Sitting-Comment/# of Minutes safety Dynamic Sitting Balance Dynamic Sitting-Balance Support Unilateral upper extremity supported Dynamic Sitting-Balance Forward lean;Reaching for objects Dynamic Sitting-Sitting Surface Bed Dynamic Sitting-Level of Assistance Minimum assistance Dynamic Sitting-Comments 2/2 imaired trunk control Static Standing Balance Static Standing-Balance Support Bilateral upper extremity supported (on OT and RN) Static Standing-Standing Surface Floor Static Standing-Level of Assistance Minimum assistance (x2) Static Standing-Comment/# of Minutes assist x2 for steadying Bed Mobility Bed Mobility Yes Bed Mobility 1 Bed Mobility From 1 Supine Bed Mobility Type 1 To Bed Mobility to 1 Edge of bed Level of Assistance 1 Maximum Assist Bed Mobility Comments 1 assist to advance LEs and elevate trunk Transfers Transfer Yes Transfer 1 Transfer From 1 Sit Transfer Type 1 To Transfer to 1 Stand Transfer Device 1 No device Transfer Level of Assistance 1 Moderate Assist (x2) Trials/Comments 1 assist x2 for force production, balance, and controlled descent RUE Assessment RUE Assessment WFL RUE Comments 5/5 MMT LUE Assessment LUE Assessment WFL LUE Comments grossly 5/5 MMT Other Comments Comments Pt educated on role of OT, agreeable to therapy. Pt would benefit from continued skilled OT to maximize safety and IND in ADLs prior to d/c. POC and recs discussed. Daily Activity - 6 Clicks Putting on and taking off regular lower body clothing 1 Bathing 2 Toileting 2 Putting on and taking off upper body clothing 2 Personal Grooming 2 Eating Meals 3 Total Score (range 6-24) 12 Score Interpretation 30.60 Safe Environment End of Therapy Session Safe Environment End of Therapy Session Patient left in recliner;Chair alarm in place and activated;RN notified;Call light within reach;Overbed table within reach Assessment Problem List Decreased upper extremity strength;Decreased endurance;Decreased balance;Decreased functional mobility;Decreased ADL independence;Decreased IADL independence;Decreased frequency/variety of movement Barriers to Discharge Current ADL Status;Current Mobility Status Barrier Comments fall risk Plan Plan Plan of care initiated;If this is the last note, consider this the discharge summary Recommendation/Plan OT Recommendation (S) Inpatient Rehab Facility Patient at high risk for Falls;Injury due to decreased ability to care for self;Readmission;Injury due to reduced functional status;Injury due to balance deficits;Injury at home as patient has not returned to prior level of function;Developing impaired skin integrity;Prolonged dependence for self care tasks Recommend Inpatient Rehab/Acute Rehab due to Ability to actively participate in intensive therapy 3hours/day, 5 days/week or 900 minutes per week;Highly motivated to participate in therapy;Not at baseline due to impaired ability to complete ADLs;Impaired ability to complete functional mobility;Likely to return to the community at discharge with support system in place;Requires greater than 25% physical assistance with most mobility tasks;Requires greater than 25% physical assistance with most ADL tasks;Requires multiple therapy disciplines to address functional deficits OT Frequency during current admission 5-7x/wk Treatment/Interventions during current admission ADL/IADL retraining;Balance Training;Bed mobility;Compensatory technique education;Endurance training;Equipment eval/education;Functional activity;Functional mobility training;Functional transfer training;Parent/caregiver training and education;Strengthening;Transfer training;Therapeutic exercise;Therapeutic activity OT - Next Appointment 12/14/23 OT - OK to Discharge No OT Evaluation Complete Yes Time Calculation Start Time 1150 Stop Time 1208 Time Calculation (min) 18 min Reason for interruption Family visiting, OT returned later in PM Start Time 2 1309 Stop Time 2 1426 Time Calculation 2 (min) 77 min Total Time Calculation (min) 95 min Multi-Disciplinary Problems (from Occupational Therapy) Active Problems Problem: Dressings Lower Extremities Start Date: 12/11/23 Goal Start Date Expected End Date End Date STG - Patient to complete lower body dressing with modA, AE PRN 12/11/23 12/18/23 -- Problem: Eating Start Date: 12/11/23 Goal Start Date Expected End Date End Date STG - Patient will complete eating with SPV using BUE, built up handle PRN. 12/11/23 12/18/23 -- Problem: Grooming Start Date: 12/11/23 Goal Start Date Expected End Date End Date STG - Patient will complete grooming in unsupported sitting with SPV for task, AE PRN 12/11/23 12/18/23 -- Problem: Transfers Start Date: 12/11/23 Goal Start Date Expected End Date End Date STG - Patient will perform toilet transfer to/from [facility] Cyrus 12/11/23 12/18/23 -- Problem: OT Misc Start Date: 12/11/23 Goal Start Date Expected End Date End Date OT LTG - Pt will complete standing ADLs and functional transfers with SPV. 12/11/23 01/01/24 -- * Parris Soto NP - 12/11/2023 11:35 AM CDT Images from the original note were not included. 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 She was walking down two steps to her backyard, lost her footing and fell on her left side, landed on thegrass. Denies HS or LOC. HDS on presentation. Primary survey unremarkable. GCS 15. She reports severe pain of the left hip. On exam, pain with passive flexion at the left hip, tender to palpation of the left hip and lumbar back. XR chest, pelvis, left femur, left hip, left shoulder; CT pelvis and left femur done, notable for a left displaced IT fracture. Of note, she denies lightheadedness, dizziness, chest pain, headache, shortness of breath or palpitations prior to the fall. Injury: #Left displaced IT fracture OR 12/08 (Wilfredo) ORIF left IT Edited by: Emy Sanchez NP at 12/10/2023 0718 Interval History: AURA, remains in a fib 100s, will restart Coreg 12.5 mg PO BID (home dose 50 mg PO BID) stroke like symptoms,mostly resolved Neuro s/o, Cards: ECHO pending Objective Medications: Current Facility-Administered Medications: acetaminophen (TYLENOL) tablet 1,000 mg, 1,000 mg, oral, Q6H, Noel Islas MD, 1,000 mg at 12/11/23 0556 ALPRAZolam (XANAX) tablet 0.5 mg, 0.5 mg, oral, BID PRN, Noel Islas MD, 0.5 mg at 12/11/23 0208 carvediloL (COREG) tablet 12.5 mg, 12.5 mg, oral, BID with meals (bkfst, dinner), Parris Soto NP cholecalciferol (VITAMIN D-3) capsule 1,000 Units, 1,000 Units, oral, Daily, Parris Soto NP dextrose gel in packet 15 g, 15 g, oral, Q15 Min PRN OR dextrose (D10W) 10% bolus 250 mL, 250 mL, intravenous, Q15 Min PRN, Emy Sanchez NP enoxaparin (LOVENOX) syringe 30 mg, 30 mg, subcutaneous, Q12H MISHA, SinkEmy NP, 30 mg at 12/11/23 0845 FLUoxetine (PROzac) capsule 20 mg, 20 mg, oral, Daily, SinkEmy NP, 20 mg at 12/11/23 0845 glucagon injection 1 mg, 1 mg, intramuscular, Q30 Min PRN, Emy Sanchez NP insulin lispro (HumaLOG, ADMELOG) 100 unit/mL injection 0-10 Units, 0-10 Units, subcutaneous, Q4H MISHA, Emy Sanchez NP, 2 Units at 12/11/23 0845 levothyroxine (SYNTHROID) tablet 50 mcg, 50 mcg, oral, Daily, Noel Islas MD, 50 mcg at 12/11/23 0845 lidocaine (ASPERCREME) 4 % patch 1 patch, 1 patch, transdermal, Q24H, Sukhjinder Cao MD, 1patch at 12/10/23 1720 ondansetron (ZOFRAN) injection 4 mg, 4 mg, intravenous, Q4H PRN, Alia Ibarra MD, 4 mg at 12/10/23 2337 oxyCODONE (ROXICODONE) tablet 5 mg, 5 mg, oral, Q4H PRN, Noel Islas MD, 5 mg at 12/10/23 0755 perflutren lipid (DEFINITY) 1.5 mL in sodium chloride 0.9% 10 mL syringe, 1-10 mL, intravenous, Once in imaging, Kevin Corrigan MD perflutren protein-a (OPTISON) 3 mL in sodium chloride 0.9% 8 mL syringe, 1-8 mL, intravenous, Oncein imaging, Kevin Corrigan MD polyethylene glycol (MIRALAX) packet 17 g, 17 g, oral, Daily, Noel Islas MD, 17 g at 12/11/23 0845 prochlorperazine (COMPAZINE) injection 5 mg, 5 mg, intravenous, Q6H PRN, Alia Ibarra MD, 5 mg at 12/11/23 0047 rosuvastatin (CRESTOR) tablet 20 mg, 20 mg, oral, Daily, Noel Islas MD, 20 mg at 845 senna (SENOKOT) tablet 1 tablet, 1 tablet, oral, Daily PRN, Noel Islas MD Past Medical: Past Medical History: Diagnosis Date Adrenal nodule (HCC) Anxiety Aortic stenosis, moderate Cardiomyopathy (HCC) Diabetes mellitus (HCC) GERD (gastroesophageal reflux disease) Heart murmur HFrEF (heart failure with reduced ejection fraction) (CMS/HCC) (HCC) Hyperlipidemia Hypothyroidism Insomnia Mitral regurgitation Motion sickness NSTEMI (non-ST elevated myocardial infarction) ([facility]/HCC) (HCC) Obesity AYAD on CPAP Patellar sleeve fracture of left knee PONV (postoperative nausea and vomiting) Pulmonary embolism (HCC) Sleep apnea Zenker's diverticulum Surgical History: Past Surgical History: Procedure Laterality Date BREAST LUMPECTOMY CHOLECYSTECTOMY HAND SURGERY Left plate & screws HYSTERECTOMY INCISION AND DRAINAGE FEMUR Left 05/22/2019 KIDNEY STONE SURGERY Is&Os: I/O last 2 completed shifts: In: 925 [P.O.:120; Blood:285; IV Piggyback:520] Out: 1405 [Urine:1405] I/O this shift: In: - Out: 240 [Urine:240] Physical Exam: 24hr Min/Max: Temp Min: 36.6 ??C (97.9 ??F) Max: 37.4 ??C (99.4 ??F) Pulse Min: 75 Max: 112 BP Min: 70/55 Max: 154/84 Resp Min: 11 Max: 19 SpO2 Min: 94 % Max: 100 % Physical Exam Constitutional: alert and oriented x3 and no acute distress, noted slight weakness on left side with some left droop at corner of left mouth HEENT: Pupils equal, EOMs grossly normal, mucous membranes moist Respiratory: equal chest rise bilaterally and respirations unlabored Abdomen: soft, non-distended, nontender Skin: warm, well perfused and extremities non-edematous Removed Lucio- void check Labs/Imaging: Recent Labs Lab Units 12/10/23213612/10/23 1217 12/09/23 2224 WBC K/cumm 5.6 5.8 8.1 HEMOGLOBIN g/dL 8.5* 8.4* 8.8* HEMATOCRIT % 25.8* 25.8* 27.8* PLATELETS K/cumm 143* 162 164 Recent Labs Lab Units 12/11/23 0840 12/11/23 0344 12/10/23 2344 12/10/237 12/09/23 2350 12/09/23 2224 12/08/23 20512/08/23 1135 SODIUM mmol/L -- -- -- 135 -- 140 -- 137 POTASSIUM PLASMA mmol/L -- -- -- 4.6 -- 3.8 -- 4.9 CHLORIDE mmol/L -- -- -- 104 -- 112* -- 105 CO2 mmol/L -- -- -- 25 -- 24 -- 27 BUN SERUM mg/dL -- -- -- 32* -- 21 -- 22 CREATININE mg/dL -- -- -- 0.79 -- 0.71 -- 0.63 GLUCOSE mg/dL -- -- -- 178 -- 157 -- 105 POC GLUCOSE MONITOR mg/dL 194 185 160 -- < > -- < > -- CALCIUM mg/dL -- -- -- 8.0* -- 7.0* -- 10.0 < > = values in this interval not displayed. Recent Labs Lab Units 12/08/23 1135 PROTIME (PT) sec 17.1* INR 1.57* XR Chest 1 View Result Date: 12/11/2023 Comparison 12/08/2023. Calcified granulomas in the lungs. The lungs are clear without consolidation, pleural effusion, or pneumothorax. No pulmonary edema. Unchanged cardiomegaly including marked left atrial enlargement. Electronically signed by: Ned Arreola M.D. XR Abdomen Ap 1 Vw Result Date: 12/11/2023 A single view of the abdomen is submitted for evaluation. Normal bowel gas pattern. Partially imaged proximal left femur internal instrumentation. Dictated by: Nestor Quiroga MD The radiology attending physician has personally reviewed this study, and had reviewed and/or edited this written report andagrees with it. Electronically signed by: Anthony Wilburn M.D. CT Stroke Head WO Contrast Result Date: 12/10/2023 1. New foci of new hypoattenuation within the right temporal lobe and likely the left temporal lobe, although evaluation is somewhat limited due to beam hardening artifact. 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 Recommend follow-up with imaging with contrast-enhanced brain MRI if clinically appropriate. 2. Chronic left parieto-occipital region of encephalomalacia. The Critical results were discussed with Dr. Pearce by Dr. Ravi Ly on 12/10/2023 at 11:20 AM Dictated by: Ravi Ly M.D. The radiology attending physician has personally reviewed this study, and had reviewed and/or edited this written report and agrees with it. Electronically signed by: Adrienne Kan M.D. XR Femur Left 2 or More Views Result Date: 12/10/2023 Reduced and internally fixated left femoral intertrochanteric fracture in expected position. Electronically signed by: Mario Cardoza M.D. I have independently reviewed and interpreted all relevant lab and radiographic data. Assessment/Plan Trauma Surgical Assessment and Plan BMI 34.0-34.9,adult Assessment & Plan BMI 34.18 Sleep apnea Assessment & Plan Patient uses CPAP at home - home machine at bedside Stroke-like symptom Assessment & Plan 12/09 code stroke called after patient noted to have left facial droop and left arm ataxia, taken toCT - stat head CT with - New foci of new hypoattenuation within the right temporal lobe and likely the left temporal lobe,although evaluation is somewhat limited due to beam hardening artifact. Findings are concerning forischemic infarct or cerebritis, possibly in the setting [...] candidate for either thrombolytics or mechanical thrombectomy. Symptomatic hypotension Assessment & Plan 12/09 called to bedside for systolic BP [...] (home dose 50 mg PO BID) CTM Electrolyte depletion Assessment & Plan 12/09 magnesium and potassium replaced Advanced care planning/counseling discussion Assessment & Plan Discussed with patient at bedside regarding code status. She does not have paperwork with her, however she would like to remain DNR/DNI after surgery today. Spoke with brother, Shahram bedside 12/08 who also supported patients decision for DNR after surgery,order changed to reflect DNR POD 1 DNR (do not resuscitate) Assessment & Plan Patient wishes to be DNR after OR Encounter for medication review Assessment & Plan Medications reviewed and updated in admissions tab Home pharmacy [facility] Discharge planning issues Assessment & Plan 12/08 OR with orthopedics 12/09 code stroke this morning followed by ACT secondary to hypotension. Patient transferred to OU for closer observation 12/10 bedside ECHO Closed nondisplaced intertrochanteric fracture of left femur (CMS/HCC) (HCC) Assessment & Plan - ortho consult - 12/09 OR for ORIF of L intertrochanteric femur fx Plan: Follow up with Dr. Villalobos on 01/17 at 2:15, Weightbearing as tolerated, Post op DVT prophylaxis- resume home Eliquis at discharged -Bone health referral Resume home anticoagulation at discharge WAI (generalized anxiety disorder) Assessment & Plan Home xanax, continued PRN Essential hypertension Assessment & Plan home medications Coreg, cozaar, spironolactone 12/09 holding all home medications secondary to hypotension 12/10 BP 120/80s, HR 100s, will restarting Coreg 12.5 mg PO BID (home dose 50 mg PO BID) CTM Type 2 diabetes mellitus without complications ([facility]) ([facility]) Assessment & Plan Continue DM diet with SSI Holding home glipizide and metformin A1C 6.5 Acquired hypothyroidism Assessment & Plan Continue home levothyroxine Paroxysmal atrial fibrillation ([facility]) ([facility]) Assessment & Plan Holding home eliquis and Carvedilol 12/10 A fib controlled HR 100s, restarting Coreg 12.5 mg PO BID (home dose 50 mg PO BID) CTM Follow up scheduled: [facility] 01/31 at 1:20 Lines/Drains/Tubes: PIV x2, Lucio DVT Prophylaxis: Lovenox Diet: Adult Diet Restricted; Consistent Carbohydrate Activity: WBAT GI Prophylaxis: none Code Status: LIMITED - No CPR Total time spent included the following activities caring for this patient: Patient chart review, Reviewing/obtaining history, Examination and evaluation, Counseling/educating patient/family/caregiver, Ordering medications/tests/procedures, Referring & communicating with other health care taker, Documenting clinical information in the health record, Independent interpretation of results, and Care coordination 45 minutes All care plans discussed with rounding/operative attending: MD Parris Engel NP Cosigned by Kevin Corrigan MD at 12/11/2023 9:24 PM CDT * Mahogany Zamudio MD - 12/11/2023 5:39 AM CDT Orthopaedic Trauma Service Daily Progress Note Admit Date: 12/08/2023 Hospital Day: 3 [facility] Dx: L IT fx Injury Mechanism: fall going up a step OI: None PMHx: L DFR s/p distal femur fx (2019), Afib on eliquis, PE, HTN, HLD, T2DM, CHF, CVA with right sided residual Procedure(s): 12/09/23: DHS L IT fx Interval History: 12/11/23: AFVSS currently, hypotensive yesterday to 70s. Code stroke called yesterday after pt noted to have L facial droop and L arm ataxia, with hypotensive episode and hx of afib; head CT with newfoci of hpoattenuation in R temporal lobe, c/f ischemic infarct, cerebritis, possible HSV encephalitis. Cardiology consulted for afib and recommended repeat TTE. WBC 5.6, Hgb 8.5; Hct 25.8. Cr 0.79. B. Exam: Pain controlled. Dressings c/d/I, NVI, Tert -. Plan continue w/up per primary. Objective Vitals: 24hr Min/Max: Temp Min: 36.5 ??C (97.7 ??F) Max: 37.4 ??C (99.4 ??F) Pulse Min: 72 Max: 112 BP Min: 66/44 Max: 146/79 Resp Min: 11 Max: 19 SpO2 Min: 94 % Max: 100 % I/O last 2 completed shifts: In: 1645 [P.O.:240; I.V.:1000; Blood:285; IV Piggyback:120] Out: 820 [Urine:820] I/O this shift: In: 520 [IV Piggyback:520] Out: 460 [Urine:460] Physical Exam: Gen: No acute distress Alert and oriented: x3 Extremity Left Lower extremity Dressing/wound: dressing clean/dry/intact Immobilization: n/a Sensation: intact to light touch in the superficial peroneal, deep peroneal, and tibial distributions Motor: fires tibialis anterior, gastroc-soleus complex, extensor hallucis longus, flexor hallucis longus Perfusion: 2+ dorsalis pedis pulse Tertiary Exam Findings: negative, there are no other apparent painful joints or extremities on exam Lab/Diagnostic Review: Recent Labs Lab Units 12/11/23 0344 12/10/23 2344 12/10/23 2137 12/08/23205112/08/23 1135 SODIUM mmol/L -- -- 135 < > 137 POTASSIUM PLASMA mmol/L -- -- 4.6 < > 4.9 CHLORIDE mmol/L -- -- 104 < > 105 CO2 mmol/L -- -- 25 < > 27 ANIONGAP mmol/L -- -- 6 < > 5 GLUCOSE mg/dL -- -- 178 < > 105 POC GLUCOSE MONITOR mg/dL 185 < > -- < > -- BUN SERUM mg/dL -- -- 32* < > 22 CREATININE mg/dL -- -- 0.79 < > 0.63 CALCIUM mg/dL -- -- 8.0* < > 10.0 ALBUMIN g/dL -- -- -- -- 3.9 ALK PHOS Units/L -- -- -- -- 75 ALT Units/L -- -- -- -- 21 AST Units/L -- -- -- -- 25 BILIRUBIN TOTAL mg/dL -- -- -- -- 0.4 WBC K/cumm -- -- 5.6 < > 6.5 HEMOGLOBIN g/dL -- -- 8.5* < > 11.3* HEMATOCRIT % -- -- 25.8* < > 35.0* PLATELETS K/cumm -- -- 143* < > 204 NEUTROS PCT % -- -- -- -- 73.8 LYMPHS PCT % -- -- -- -- 16.9 MONOS PCT % -- -- -- -- 7.4 EOS PCT % -- -- -- -- 1.2 APTT sec -- -- -- -- 33 INR -- -- -- -- 1.57* < > = values in this interval not displayed. Micro: Lab Results Component Value Date MICROBIOLOGY 05/25/2021 Final Report: Less than 100,000 colonies/mL (clinically insignificant growth based on current clinical standards) MICROBIOLOGY Final Report: Negative 05/29/2019 Assessment/Plan: 83 y.o. female p/w the above injuries. Patient is now status post L DHS plate for L IT fx WB Status: Weight bearing as tolerated left lower extremity Immobilization: na Activity: Ambulate with assist after OR Therapy: PT/OT for OOB/mobilization as tolerated after OR Precautions: None DVT ppx: Unilateral lower extremity injury: Lovenox 40mg QHS postop while in the hospital, on discharge transition to Aspirin 81mg BID x 14 days to take with food OR continue Lovenox 40mg QHS if patient will return for further orthopaedic surgery Drain: n/a Antibiotics: Periop: Ancef 1-2gm IV Q8hrs for 24 hours postoperative Cultures: na Wound Care: Surgical dressings will be changed on POD3. Okay for nursing to reinforce dressings PRNif they become soiled or have shadowing before that time Sutures/Harrah: Will be removed 3 weeks after surgical date. Please include on discharge orders ifpatient is going to a facility. If the patient is still in the hospital at that time they will be removed by the orthopedic team. Lucio: Per primary Diet: Per primary Additional Needs: Bone health referral at discharge Ortho Trauma will continue to follow this patient's hospital course. Dispo: Pending progress, postoperative recovery, and progress with therapy Follow-Up: Patient has follow up scheduled on 01/18/[address] Villalobos located at [address]) Michelle Zamudio M.D. Orthopaedic Surgery Resident, PGY-2 [facility] [employer] [facility] For questions please reach out to: Keyla 7:30p-6:30a (Night Floor Resident): [phone] Consult Resident: [phone] Specific Resident: Please use [employer] to page/call appropriate OrthopaedicSurgery Team/Resident Not sure which resident is on for the service? Check the Call Schedule: [facility] for [facility] Orthopaedic Surgery (pw: Abigail [facility]) For ortho primary adult patients, Thu - Thu 6a-6p: Call [phone] nurses station for PA/PRODUCTION CONTROL SUPERVISOR ([phone]) For ortho primary pediatric patients, Thu - Thu 6a-6p: Call 10th floor nurses station for PRODUCTION CONTROL SUPERVISOR Please call with questions during daytime. See below for overnight issues. If you know the resident's name on the appropriate orthopaedic surgery team, please use [email or web address] to page resident directly. If questions arise and the appropriate resident can't be reached or you are calling overnight, please contact [phone] ([place]- 7:30 PM - 6:30 AM - Floor Resident) or [phone] (24 hours/day - Consult Resident) Cosigned by Homer Villalobos MD at 12/11/2023 9:26 AM CDT * Emy Sanchez NP - 12/10/2023 2:54 PM CDT Images from the original note were not included. 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 She was walking down two steps to her backyard, lost her footing and fell on her left side, landed on thegrass. Denies HS or LOC. HDS on presentation. Primary survey unremarkable. GCS 15. She reports severe pain of the left hip. On exam, pain with passive flexion at the left hip, tender to palpation of the left hip and lumbar back. XR chest, pelvis, left femur, left hip, left shoulder; CT pelvis and left femur done, notable for a left displaced IT fracture. Of note, she denies lightheadedness, dizziness, chest pain, headache, shortness of breath or palpitations prior to the fall. Injury: #Left displaced IT fracture OR 12/08 (Wilfredo) ORIF left IT Edited by: Emy Sanchez NP at 12/10/2023 0718 Interval History: orthotist or prosthetist patient with symptoms of stroke, left arm ataxia and left facial droop, stat hCT and code stroke completed, hCT with findings of New foci of new hypoattenuation withinthe right temporal lobe and likely the left temporal lobe but limiting; shortly after patient with significant hypotension into 70s and 80s; ACT called patient received 1unit blood and 1L NS; cardiology consult placed, ARIADNE ordered; patient transferred to OU for closer observation Objective Medications: Current Facility-Administered Medications: acetaminophen (TYLENOL) tablet 1,000 mg, 1,000 mg, oral, Q6H, Noel Islas MD, 1,000 mg at 12/10/23 1210 ALPRAZolam (XANAX) tablet 0.5 mg, 0.5 mg, oral, BID PRN, Noel Islas MD, 0.5 mg at 12/09/23 1003 [Held by Provider] carvediloL (COREG) tablet 50 mg, 50 mg, oral, BID with meals (bkfst, dinner), Noel Islas MD, 50 mg at 12/10/23 0755 ceFAZolin (ANCEF) 2,000 mg/20 mL in sterile water (premix) 2,000 mg, 2,000 mg, intravenous, Q8H Robb CABRAL Madeline Ann, MD, 2,000 mg at 12/10/23 1455 dextrose gel in packet 15 g, 15 g, oral, Q15 Min PRN OR dextrose (D10W) 10% bolus 250 mL, 250 mL, intravenous, Q15 Min PRN, Emy Sanchez NP enoxaparin (LOVENOX) syringe 30 mg, 30 mg, subcutaneous, Q12H MISHA, Emy Sanchez NP, 30 mg at 12/10/23 0855 FLUoxetine (PROzac) capsule 20 mg, 20 mg, oral, Daily, Emy Sanchez NP, 20 mg at 12/10/23 0755 glucagon injection 1 mg, 1 mg, intramuscular, Q30 Min PRN, Emy Sanchez NP HYDROmorphone (DILAUDID) injection 0.5 mg, 0.5 mg, intravenous, Q2H PRN, Whitney Lovelace MD, 0.5 mg at 12/10/23 0638 insulin lispro (HumaLOG, ADMELOG) 100 unit/mL injection 0-10 Units, 0-10 Units, subcutaneous, Q4H MISHA, Sink, Emy Dorado NP, 4 Units at 12/10/23 1215 levothyroxine (SYNTHROID) tablet 50 mcg, 50 mcg, oral, Daily, Noel Islas MD, 50 mcg at 12/10/23 0755 lidocaine (ASPERCREME) 4 % patch 1 patch, 1 patch, transdermal, Q24H, Sukhjinder Cao MD, 1patch at 12/08/23 1858 oxyCODONE (ROXICODONE) tablet 5 mg, 5 mg, oral, Q4H PRN, Noel Islas MD, 5 mg at 12/10/23 0755 polyethylene glycol (MIRALAX) packet 17 g, 17 g, oral, Daily, Noel Islas MD, 17 g at 12/10/23 0755 rosuvastatin (CRESTOR) tablet 20 mg, 20 mg, oral, Daily, Noel Islas MD, 20 mg at 755 senna (SENOKOT) tablet 1 tablet, 1 tablet, oral, Daily PRN, Noel Islas MD Past Medical: Past Medical History: Diagnosis Date Adrenal nodule ([facility]) Anxiety Aortic stenosis, moderate Cardiomyopathy (HCC) Diabetes mellitus ([facility]) GERD (gastroesophageal reflux disease) Heart murmur HFrEF (heart failure with reduced ejection fraction) ([facility]/HCC) ([facility]) Hyperlipidemia Hypothyroidism Insomnia Mitral regurgitation Motion sickness NSTEMI (non-ST elevated myocardial infarction) ([facility]) ([facility]) Obesity AYAD on CPAP Patellar sleeve fracture of left knee PONV (postoperative nausea and vomiting) Pulmonary embolism ([facility]) Sleep apnea Zenker's diverticulum Surgical History: Past Surgical History: Procedure Laterality Date BREAST LUMPECTOMY CHOLECYSTECTOMY HAND SURGERY Left plate & screws HYSTERECTOMY INCISION AND DRAINAGE FEMUR Left 05/22/2019 KIDNEY STONE SURGERY Is&Os: I/O last 2 completed shifts: In: 1740 [P.O.:120; I.V.:1500; IV Piggyback:120] Out: 150 [Blood:150] I/O this shift: In: 405 [P.O.:120; Blood:285] Out: 470 [Urine:470] Physical Exam: 24hr Min/Max: Temp Min: 36.2 ??C (97.2 ??F) Max: 36.9 ??C (98.4 ??F) Pulse Min: 72 Max: 112 BP Min: 66/44 Max: 135/82 Resp Min: 11 Max: 19 SpO2 Min: 92 % Max: 100 % Physical Exam Eyes: Pupils: Pupils are equal, round, and reactive to light. Cardiovascular: Rate and Rhythm: Rhythm irregular. Abdominal: Palpations: Abdomen is soft. Musculoskeletal: General: Normal range of motion. Skin: General: Skin is warm and dry. Capillary Refill: Capillary refill takes 2 to 3 seconds. Coloration: Skin is pale. Comments: Left thigh, surgical dressing c/d/i Neurological: Mental Status: She is alert and oriented to person, place, and time. Cranial Nerves: Facial asymmetry present. Sensory: Sensory deficit present. Motor: Weakness present. Comments: Left arm ataxia Left mouth/facial droop Psychiatric: Mood and Affect: Mood normal. Behavior: Behavior normal. Thought Content: Thought content normal. Judgment: Judgment normal. Labs/Imaging: Recent Labs Lab Units 12/10/23 1217 12/09/23222312/08/23 1135 WBC K/cumm 5.8 8.1 6.5 HEMOGLOBIN g/dL 8.4* 8.8* 11.3* HEMATOCRIT % 25.8* 27.8* 35.0* PLATELETS K/cumm 162 164 204 Recent Labs Lab Units 12/10/23 1213 12/10/23 0739 12/10/23 0439 12/09/23 2350 12/09/23222312/08/23205112/08/23 1135 SODIUM mmol/L -- -- -- -- 140 -- 137 POTASSIUM PLASMA mmol/L -- -- -- -- 3.8 -- 4.9 CHLORIDE mmol/L -- -- -- -- 112* -- 105 CO2 mmol/L -- -- -- -- 24 -- 27 BUN SERUM mg/dL -- -- -- -- 21 -- 22 CREATININE mg/dL -- -- -- -- 0.71 -- 0.63 GLUCOSE mg/dL -- -- -- -- 157 -- 105 POC GLUCOSE MONITOR mg/dL 237* 146 175 < > -- < > -- CALCIUM mg/dL -- -- -- -- 7.0* -- 10.0 < > = values in this interval not displayed. Recent Labs Lab Units 12/08/23 1135 PROTIME (PT) sec 17.1* INR 1.57* CT Stroke Head WO Contrast Result Date: 12/10/2023 1. New foci of new hypoattenuation within the right temporal lobe and likely the left temporal lobe, although evaluation is somewhat limited due to beam hardening artifact. 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 Recommend follow-up with imaging with contrast-enhanced brain MRI if clinically appropriate. 2. Chronic left parieto-occipital region of encephalomalacia. The Critical results were discussed with Dr. Pearce by Dr. Ravi Ly on 12/10/2023 at 11:20 AM Dictated by: Ravi Ly M.D. The radiology attending physician has personally reviewed this study, and had reviewed and/or edited this written report and agrees with it. Electronically signed by: Adrienne Kan M.D. XR Femur Left 2 or More Views Result Date: 12/10/2023 Reduced and internally fixated left femoral intertrochanteric fracture in expected position. Electronically signed by: Mario Cardoza M.D. CT Pelvis WO Contrast Result Date: 12/08/2023 Comminuted and mildly impacted intertrochanteric fracture left femur Dictated by: Jamin Singh MD The radiology attending physician has personally reviewed this study, and had reviewed and/or editedthis written report and agrees with it. Electronically signed by: Patricio Galarza MD CT Femur Left WO Contrast Result Date: 12/08/2023 Comminuted and mildly impacted intertrochanteric fracture left femur Dictated by: Jamin Singh MD The radiology attending physician has personally reviewed this study, and had reviewed and/or editedthis written report and agrees with it. Electronically signed by: Patricio Galarza MD XR Knee Left 4 or More Views Result Date: 12/08/2023 FINDINGS/IMPRESSION: Left knee: Redemonstration of distal left femoral resection with endoprosthesis and left knee hinged arthroplasty. Intact hardware. No evidence of periprosthetic fracture or lucency. No acute fracture or dislocation. Dictated by: Mary Jane Birmingham MD The radiology attending physician has personally reviewed this study, and had reviewed and/or edited this written report and agreeswith it. Electronically signed by: Eldon Castañeda M.D. I have independently reviewed and interpreted all relevant lab and radiographic data. Assessment/Plan Trauma Surgical Assessment and Plan Stroke-like symptom Assessment & Plan 12/09 code stroke called after patient noted to have left facial droop and left arm ataxia, taken toCT - stat head CT with - New foci of new hypoattenuation within the right temporal lobe and likely the left temporal lobe,although evaluation is somewhat limited due to beam hardening artifact. 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 Recommend follow-up with imaging with contrast-enhanced brain MRI if clinically appropriate. - Chronic left parieto-occipital region of encephalomalacia. Symptoms improved without intervention, continue Q4 neuro checks Symptomatic hypotension Assessment & Plan 12/09 called to bedside for systolic BP 70s-80s, ACT called, patient received 1unit RBC, 1L NS, cardiology consult placed, TTE pending BNP (815), Trop (8) and lactate (1.4 POC) Hgb (8.4) obtained, EKG completed, transferring patient to OU for closer monitoring Electrolyte depletion Assessment & Plan 12/09 magnesium and potassium replaced Advanced care planning/counseling discussion Assessment & Plan Discussed with patient at bedside regarding code status. She does not have paperwork with her, however she would like to remain DNR/DNI after surgery today. Spoke with brother, Shahram nathaniel 12/08 who also supported patients decision for DNR after surgery,order changed to reflect DNR POD 1 DNR (do not resuscitate) Assessment & Plan Patient wishes to be DNR after OR Encounter for medication review Assessment & Plan Medications reviewed and updated in admissions tab Home pharmacy [facility] in [place] Discharge planning issues Assessment & Plan 12/08 OR with orthopedics 12/09 code stroke this morning followed by ACT secondary to hypotension. Patient transferred to OU for closer observation Closed nondisplaced intertrochanteric fracture of left femur ([facility]) ([facility]) Assessment & Plan - ortho consult - 12/09 OR for ORIF of L intertrochanteric femur fx - WBAT, PT/OT -Bone health referral Resume home anticoagulation at discharge WAI (generalized anxiety disorder) Assessment & Plan Home xanax, continued PRN Essential hypertension Assessment & Plan home Coreg, cozaar, spironolactone 12/09 holding all home medications secondary to hypotension Type 2 diabetes mellitus without complications ([facility]) ([facility]) Assessment & Plan Continue DM diet with SSI Holding home glipizide and metformin A1C 6.5 Acquired hypothyroidism Assessment & Plan Continue home levothyroxine Paroxysmal atrial fibrillation ([facility]) ([facility]) Assessment & Plan Holding home eliquis FEN: These fluid and electrolyte abnormalities are being treated, evaluated or monitored: Hypokalemia--potassium replacement Hypomagnesemia--replace and monitor Lines/Drains/Tubes: PIV x2, Lucio DVT Prophylaxis: Lovenox Diet: Adult Diet Restricted; Consistent Carbohydrate Activity: WBAT GI Prophylaxis: none Code Status: LIMITED - No CPR Total time spent included the following activities caring for this patient: Patient chart review, Reviewing/obtaining history, Examination and evaluation, Counseling/educating patient/family/caregiver, Ordering medications/tests/procedures, Referring & communicating with other health care taker, Documenting clinical information in the health record, Independent interpretation of results, Care coordination, and Complex wound care 75 minutes All care plans discussed with rounding/operative attending: MD Emy Engel NP Cosigned by Kevin Corrigan MD at 12/11/2023 9:26 AM CDT * Marilou Yuan OT - 12/10/2023 1:47 PM CDT Occupational Therapy 12/10/23 1346 General OT Missed Visit Reason Change in medical status (Medical cancel: code stroke called. OT will hold at this time) * Emy Sanchez NP - 12/10/2023 8:49 AM CDT Images from the original note were not included. 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 She was walking down two steps to her backyard, lost her footing and fell on her left side, landed on thegrass. Denies HS or LOC. HDS on presentation. Primary survey unremarkable. GCS 15. She reports severe pain of the left hip. On exam, pain with passive flexion at the left hip, tender to palpation of the left hip and lumbar back. XR chest, pelvis, left femur, left hip, left shoulder; CT pelvis and left femur done, notable for a left displaced IT fracture. Of note, she denies lightheadedness, dizziness, chest pain, headache, shortness of breath or palpitations prior to the fall. Injury: #Left displaced IT fracture OR 12/08 (Wilfredo) ORIF left IT Edited by: Emy Sanchez NP at 12/10/2023 0718 Interval History: POD 1 from IT repair, pain well controlled this morning. Code status chagned to DNT per patient request, continue DVT ppx, therapy to work with patient today Objective Medications: Current Facility-Administered Medications: acetaminophen (TYLENOL) tablet 1,000 mg, 1,000 mg, oral, Q6H, Noel Islas MD, 1,000 mg at 12/10/23 0434 ALPRAZolam (XANAX) tablet 0.5 mg, 0.5 mg, oral, BID PRN, Noel Islas MD, 0.5 mg at 12/09/23 1003 carvediloL (COREG) tablet 50 mg, 50 mg, oral, BID with meals (bkfst, dinner), Noel Islas MD, 50 mg at 12/10/23 0755 ceFAZolin (ANCEF) 2,000 mg/20 mL in sterile water (premix) 2,000 mg, 2,000 mg, intravenous, Q8H MISHA, Mahogany Zamudio MD, 2,000 mg at 12/10/23 0615 dextrose gel in packet 15 g, 15 g, oral, Q15 Min PRN OR dextrose (D10W) 10% bolus 250 mL, 250 mL, intravenous, Q15 Min PRN, Emy Sanchez NP enoxaparin (LOVENOX) syringe 30 mg, 30 mg, subcutaneous, Q12H MISHA, Emy Sanchez NP FLUoxetine (PROzac) capsule 20 mg, 20 mg, oral, Daily, Emy Sanchez NP, 20 mg at 12/10/23 0755 furosemide (LASIX) tablet 40 mg, 40 mg, oral, Daily, Noel Islas MD, 40 mg at 12/10/23 0755 glucagon injection 1 mg, 1 mg, intramuscular, Q30 Min PRN, Emy Sanchez NP HYDROmorphone (DILAUDID) injection 0.5 mg, 0.5 mg, intravenous, Q2H PRN, Whitney Lovelace MD, 0.5 mg at 12/10/23 0638 insulin lispro (HumaLOG, ADMELOG) 100 unit/mL injection 0-10 Units, 0-10 Units, subcutaneous, Q4H MISHA, SinkEmy NP, 2 Units at 12/10/23 0445 labetaloL (NORMODYNE,TRANDATE) injection 10 mg, 10 mg, intravenous, Once PRN, Alia Ibarra MD levothyroxine (SYNTHROID) tablet 50 mcg, 50 mcg, oral, Daily, Noel Islas MD, 50 mcg at 12/10/23 0755 lidocaine (ASPERCREME) 4 % patch 1 patch, 1 patch, transdermal, Q24H, Sukhjinder Cao MD, 1patch at 12/08/23 1858 losartan (COZAAR) tablet 100 mg, 100 mg, oral, Daily, Noel Islas MD, 100 mg at 12/10/23 0754 oxyCODONE (ROXICODONE) tablet 5 mg, 5 mg, oral, Q4H PRN, Noel Islas MD, 5 mg at 12/10/23 075 polyethylene glycol (MIRALAX) packet 17 g, 17 g, oral, Daily, Noel Islas MD, 17 g at 12/10/23 075 rosuvastatin (CRESTOR) tablet 20 mg, 20 mg, oral, Daily, Noel Islas MD, 20 mg at 755 senna (SENOKOT) tablet 1 tablet, 1 tablet, oral, Daily PRN, Noel Islas MD sodium chloride 0.9% infusion, 75 mL/hr, intravenous, Continuous, Sink, Emy Dorado NP, LastRate: 75 mL/hr at 12/10/23 0619, 75 mL/hr at 12/10/23 0619 spironolactone (ALDACTONE) tablet 50 mg, 50 mg, oral, Daily, Noel Islas MD, 50 mg at 12/10/23 0755 Past Medical: Past Medical History: Diagnosis Date Adrenal nodule ([facility]) Anxiety Aortic stenosis, moderate Cardiomyopathy (HCC) Diabetes mellitus ([facility]) GERD (gastroesophageal reflux disease) Heart murmur HFrEF (heart failure with reduced ejection fraction) ([facility]) ([facility]) Hyperlipidemia Hypothyroidism Insomnia Mitral regurgitation Motion sickness NSTEMI (non-ST elevated myocardial infarction) ([facility]) ([facility]) Obesity AYAD on CPAP Patellar sleeve fracture of left knee PONV (postoperative nausea and vomiting) Pulmonary embolism (HCC) Sleep apnea Zenker's diverticulum Surgical History: Past Surgical History: Procedure Laterality Date BREAST LUMPECTOMY CHOLECYSTECTOMY HAND SURGERY Left plate & screws HYSTERECTOMY INCISION AND DRAINAGE FEMUR Left 05/22/2019 KIDNEY STONE SURGERY Is&Os: I/O last 2 completed shifts: In: 1740 [P.O.:120; I.V.:1500; IV Piggyback:120] Out: 150 [Blood:150] I/O this shift: In: - Out: 120 [Urine:120] Physical Exam: 24hr Min/Max: Temp Min: 36.2 ??C (97.2 ??F) Max: 36.6 ??C (97.9 ??F) Pulse Min: 66 Max: 100 BP Min: 84/61 Max: 135/82 Resp Min: 11 Max: 21 SpO2 Min: 92 % Max: 100 % Physical Exam Constitutional: alert and oriented x3 and no acute distress HEENT: Pupils equal, EOMs grossly normal, mucous membranes moist Respiratory: equal chest rise bilaterally and respirations unlabored Abdomen: soft, non-distended Skin: warm, well perfused and extremities non-edematous Wound: left OR Ioban dressing c/d/i Labs/Imaging: Recent Labs Lab Units 12/09/23222312/08/23 1135 WBC K/cumm 8.1 6.5 HEMOGLOBIN g/dL 8.8* 11.3* HEMATOCRIT % 27.8* 35.0* PLATELETS K/cumm 164 204 Recent Labs Lab Units 12/10/23 0739 12/10/23 0439 12/09/23 2350 12/09/23 22212/08/23205112/08/23 1135 SODIUM mmol/L -- -- -- 140 -- 137 POTASSIUM PLASMA mmol/L -- -- -- 3.8 -- 4.9 CHLORIDE mmol/L -- -- -- 112* -- 105 CO2 mmol/L -- -- -- 24 -- 27 BUN SERUM mg/dL -- -- -- 21 -- 22 CREATININE mg/dL -- -- -- 0.71 -- 0.63 GLUCOSE mg/dL -- -- -- 157 -- 105 POC GLUCOSE MONITOR mg/dL 146 175 162 -- < > -- CALCIUM mg/dL -- -- -- 7.0* -- 10.0 < > = values in this interval not displayed. Recent Labs Lab Units 12/08/23 1135 PROTIME (PT) sec 17.1* INR 1.57* XR Femur Left 2 or More Views Result Date: 12/10/2023 Reduced and internally fixated left femoral intertrochanteric fracture in expected position. Electronically signed by: Mario Cardoza M.D. CT Pelvis WO Contrast Result Date: 12/08/2023 Comminuted and mildly impacted intertrochanteric fracture left femur Dictated by: Jamin Singh MD The radiology attending physician has personally reviewed this study, and had reviewed and/or editedthis written report and agrees with it. Electronically signed by: Patricio Galarza MD CT Femur Left WO Contrast Result Date: 12/08/2023 Comminuted and mildly impacted intertrochanteric fracture left femur Dictated by: Jamin Singh MD The radiology attending physician has personally reviewed this study, and had reviewed and/or editedthis written report and agrees with it. Electronically signed by: Patricio Galarza MD XR Knee Left 4 or More Views Result Date: 12/08/2023 FINDINGS/IMPRESSION: Left knee: Redemonstration of distal left femoral resection with endoprosthesis and left knee hinged arthroplasty. Intact hardware. No evidence of periprosthetic fracture or lucency. No acute fracture or dislocation. Dictated by: Mary Jane Birmingham MD The radiology attending physician has personally reviewed this study, and had reviewed and/or edited this written report and agreeswith it. Electronically signed by: Eldon Castañeda M.D. XR Hip Left 1 View Result Date: 12/08/2023 Suboptimal evaluation of the intertrochanteric fracture of the proximal left femur on this tractionview. Electronically signed by: Shelton Fagan M.D., Ph.D XR Shoulder Left 2 or More Views Result Date: 12/08/2023 1. No fracture identified. 2. Incomplete views of the glenohumeral and acromioclavicular joints. Electronically signed by: Shelton Fagan M.D., Ph.D XR Hip Left 2 or 3 Views Result Date: 12/08/2023 Intertrochanteric extra-articular proximal left femur fracture is suggestion of mild comminution. Electronically signed by: Shelton Fagan M.D., Ph.D XR Chest 1 Vw Portable Result Date: 12/08/2023 1. Displaced extra articular intertrochanteric fracture of the proximal left femur with suggestion of comminution. 2. No acute findings on chest radiograph. Electronically signed by: Shelton Fagan M.D., Ph.D XR Pelvis 1 or 2 Views Result Date: 12/08/2023 1. Displaced extra articular intertrochanteric fracture of the proximal left femur with suggestion of comminution. 2. No acute findings on chest radiograph. Electronically signed by: Shelton Fagan M.D., Ph.D XR Femur Left 2 or More Views Result Date: 12/08/2023 1. Displaced extra articular intertrochanteric fracture of the proximal left femur with suggestion of comminution. 2. No acute findings on chest radiograph. Electronically signed by: Shelton Fagan M.D., Ph.D I have independently reviewed and interpreted all relevant lab and radiographic data. Assessment/Plan Emergency General Surgical Assessment and Plan Electrolyte depletion Assessment & Plan 12/09 magnesium and potassium replaced Advanced care planning/counseling discussion Assessment & Plan Discussed with patient at bedside regarding code status. She does not have paperwork with her, however she would like to remain DNR/DNI after surgery today. Spoke with brother, Shahram bedside 12/08 who also supported patients decision for DNR after surgery,order changed to reflect DNR POD 1 DNR (do not resuscitate) Assessment & Plan Patient wishes to be DNR after OR Encounter for medication review Assessment & Plan Medications reviewed and updated in admissions tab Home pharmacy [facility] in [facility] Discharge planning issues Assessment & Plan 12/08 OR with orthopedics Closed nondisplaced intertrochanteric fracture of left femur ([facility]) ([facility]) Assessment & Plan - ortho consult - 12/09 OR for ORIF of L intertrochanteric femur fx - WBAT, PT/OT -Bone health referral Resume home anticoagulation at discharge WAI (generalized anxiety disorder) Assessment & Plan Home xanax, continued PRN Essential hypertension Assessment & Plan Continue home Coreg, lasix, cozaar, spironolactone Type 2 diabetes mellitus without complications (CMS/HCC) ([facility]) Assessment & Plan Continue DM diet with SSI Holding home glipizide and metformin A1C 6.5 Acquired hypothyroidism Assessment & Plan Continue home levothyroxine Paroxysmal atrial fibrillation (CMS/HCC) (HCC) Assessment & Plan Holding home eliquis FEN: These fluid and electrolyte abnormalities are being treated, evaluated or monitored: No fluid or electrolyte disorders Lines/Drains/Tubes: PIV DVT Prophylaxis: lovenox- holding for OR Diet: NPO Diet Activity: NWB LLE GI Prophylaxis: none Code Status: Full Code Total time spent included the following activities caring for this patient: Patient chart review, Reviewing/obtaining history, Examination and evaluation, Counseling/educating patient/family/caregiver, Ordering medications/tests/procedures, Referring & communicating with other health care taker, Documenting clinical information in the health record, Independent interpretation of results, Care coordination, and Complex wound care 45 minutes All care plans discussed with rounding/operative attending: MD Emy Engel NP Cosigned by Kevin Corrigan MD at 12/10/2023 11:04 AM CDT * Cuba Humphrey MD - 12/10/2023 6:23 AM CDT Orthopaedic Trauma Service Daily Progress Note Admit Date: 12/08/2023 Hospital Day: 2 [facility] Dx: L IT fx Injury Mechanism: fall going up a step OI: None PMHx: L DFR s/p distal femur fx (2019), Afib on eliquis, PE, HTN, HLD, T2DM, CHF, CVA with right sided residual Procedure(s): 12/09/23: DHS L IT fx [phone] (pt) [phone] (son) Interval History: 12/10/23: NAEO. AFVSS. WBC 8.1, Hgb 8.8; Hct 27.8. Cr 0.71. B. Exam: Pain controlled. NVI, Tert -. Plan pending PT Edited by: Cuba Humphrey MD at 12/10/2023 0623 Objective Vitals: 24hr Min/Max: Temp Min: 36.2 ??C (97.2 ??F) Max: 36.7 ??C (98.1 ??F) Pulse Min: 66 Max: 100 BP Min: 84/61 Max: 149/97 Resp Min: 11 Max: 21 SpO2 Min: 92 % Max: 100 % I/O last 2 completed shifts: In: 500 [I.V.:500] Out: 800 [Urine:650; Blood:150] I/O this shift: In: 1240 [P.O.:120; I.V.:1000; IV Piggyback:120] Out: 0 Physical Exam: Gen: No acute distress Alert and oriented: x3 Extremity Left Lower extremity Dressing/wound: dressing clean/dry/intact Immobilization: n/a Sensation: intact to light touch in the superficial peroneal, deep peroneal, and tibial distributions Motor: fires tibialis anterior, gastroc-soleus complex, extensor hallucis longus, flexor hallucis longus Perfusion: 2+ dorsalis pedis pulse Wound Vac(s): n/a Hemovac(s): n/a Tertiary Exam Findings: negative, there are no other apparent painful joints or extremities on exam Lab/Diagnostic Review: Recent Labs Lab Units 12/10/23 0439 12/09/23 2350 12/09/23 2224 12/08/232 12/08/23 1135 SODIUM mmol/L -- -- 140 -- 137 POTASSIUM PLASMA mmol/L -- -- 3.8 -- 4.9 CHLORIDE mmol/L -- -- 112* -- 105 CO2 mmol/L -- -- 24 -- 27 ANIONGAP mmol/L -- -- 4 -- 5 GLUCOSE mg/dL -- -- 157 -- 105 POC GLUCOSE MONITOR mg/dL 175 < > -- < > -- BUN SERUM mg/dL -- -- 21 -- 22 CREATININE mg/dL -- -- 0.71 -- 0.63 CALCIUM mg/dL -- -- 7.0* -- 10.0 ALBUMIN g/dL -- -- -- -- 3.9 ALK PHOS Units/L -- -- -- -- 75 ALT Units/L -- -- -- -- 21 AST Units/L -- -- -- -- 25 BILIRUBIN TOTAL mg/dL -- -- -- -- 0.4 WBC K/cumm -- -- 8.1 -- 6.5 HEMOGLOBIN g/dL -- -- 8.8* -- 11.3* HEMATOCRIT % -- -- 27.8* -- 35.0* PLATELETS K/cumm -- -- 164 -- 204 NEUTROS PCT % -- -- -- -- 73.8 LYMPHS PCT % -- -- -- -- 16.9 MONOS PCT % -- -- -- -- 7.4 EOS PCT % -- -- -- -- 1.2 APTT sec -- -- -- -- 33 INR -- -- -- -- 1.57* < > = values in this interval not displayed. Micro: Lab Results Component Value Date MICROBIOLOGY 05/25/2021 Final Report: Less than 100,000 colonies/mL (clinically insignificant growth based on current clinical standards) MICROBIOLOGY Final Report: Negative 05/29/2019 Assessment/Plan: 83 y.o. female p/w the above injuries. Patient is now status post L DHS plate for L IT fx WB Status: Weight bearing as tolerated left lower extremity Immobilization: na Activity: Ambulate with assist after OR Therapy: PT/OT for OOB/mobilization as tolerated after OR Precautions: None DVT ppx: Unilateral lower extremity injury: Lovenox 40mg QHS postop while in the hospital, on discharge transition to Aspirin 81mg BID x 14 days to take with food OR continue Lovenox 40mg QHS if patient will return for further orthopaedic surgery Drain: n/a Antibiotics: Periop: Ancef 1-2gm IV Q8hrs for 24 hours postoperative Cultures: na Wound Care: Surgical dressings will be changed on POD3. Okay for nursing to reinforce dressings PRNif they become soiled or have shadowing before that time Sutures/Theodore: Will be removed 3 weeks after surgical date. Please include on discharge orders ifpatient is going to a facility. If the patient is still in the hospital at that time they will be removed by the orthopedic team. Lucio: Per primary Diet: Per primary Additional Needs: Bone health referral at discharge Ortho Trauma will continue to follow this patient's hospital course. Dispo: Pending progress, postoperative recovery, and progress with therapy Follow-Up: Patient has follow up scheduled on 01/18/[address] Villalobos located at [facility] Please call with questions during daytime. See below for overnight issues. If you know the resident's name on the appropriate orthopaedic surgery team, please use [email or web address] to page resident directly. If questions arise and the appropriate resident can't be reached or you are calling overnight, please contact [phone] ([facility] 7:30 PM - 6:30 AM - Floor Resident) or [phone] (24 hours/day - Consult Resident) * Cuba Humphrey MD - 12/09/2023 5:53 PM CDT POST OP VISIT Dx: L IT fx Injury Mechanism: fall going up a step OI: None PMHx: L DFR s/p distal femur fx (2019), Afib on eliquis, PE, HTN, HLD, T2DM, CHF, CVA with right sided residual Procedure(s): 12/09/23: DHS L IT fx INTERIM HISTORY Patient awakening from anesthesia without issues. She denies nausea, you numbness or tingling. She denies chest pain or shortness of breath. PHYSICAL EXAMINATION Gen: No acute distress Alert and oriented: x3 Extremity Left Lower extremity Dressing/wound: dressing clean/dry/intact Immobilization: n/a Sensation: intact to light touch in the superficial peroneal, deep peroneal, and tibial distributions Motor: fires tibialis anterior, gastroc-soleus complex, extensor hallucis longus, flexor hallucis longus Perfusion: 2+ dorsalis pedis pulse REVIEW OF X-RAYS/STUDIES No new xrays postop IMPRESSION Status post left hip sliding hip screw, doing well PLAN/FOLLOW UP WB Status: Weight bearing as tolerated left lower extremity Immobilization: na Activity: Ambulate with assist after OR Therapy: PT/OT for OOB/mobilization as tolerated after OR Precautions: None DVT ppx: Unilateral lower extremity injury: Lovenox 40mg QHS postop while in the hospital, on discharge transition to Aspirin 81mg BID x 14 days to take with food OR continue Lovenox 40mg QHS if patient will return for further orthopaedic surgery Drain: n/a Antibiotics: Periop: Ancef 1-2gm IV Q8hrs for 24 hours postoperative Cultures: na Wound Care: Surgical dressings will be changed on POD3. Okay for nursing to reinforce dressings PRNif they become soiled or have shadowing before that time Sutures/Harrah: Will be removed 3 weeks after surgical date. Please include on discharge orders ifpatient is going to a facility. If the patient is still in the hospital at that time they will be removed by the orthopedic team. Lucio: Per primary Diet: Per primary Additional Needs: Bone health referral at discharge Ortho Trauma will continue to follow this patient's hospital course. Dispo: Pending progress, postoperative recovery, and progress with therapy Follow-Up: Patient has follow up scheduled on 01/18/[address] Villalobos located at [facility] Cuba Humphrey MD Clinical Fellow Orthopedic Trauma Service [facility] Orthopedics Dictated using Fluency Direct Software. Management Tech variances may occur. * Daniela Brady MSW - 12/09/2023 12:00 PM CDT Trauma Services rounding completed by RN Coordinator Kevin Mckeon on this date. Pt provided withTrauma Services booklet, TSN information, and fall prevention handout. RICH García, MPH, [facility] Trauma Survivors Underground Bolting Machine Operator [facility] Trauma Services (c) [phone] * Emy Sanchez NP - 12/09/2023 11:41 AM CDT Images from the original note were not included. 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 She was walking down two steps to her backyard, lost her footing and fell on her left side, landed on thegrass. Denies HS or LOC. HDS on presentation. Primary survey unremarkable. GCS 15. She reports severe pain of the left hip. On exam, pain with passive flexion at the left hip, tender to palpation of the left hip and lumbar back. XR chest, pelvis, left femur, left hip, left shoulder; CT pelvis and left femur done, notable for a left displaced IT fracture. Of note, she denies lightheadedness, dizziness, chest pain, headache, shortness of breath or palpitations prior to the fall. Injury: #Left displaced IT fracture Edited by: Noel Islas MD at 12/08/20232046 Interval History: patient admitted with left IT fracture, pain well controlled, small amount nauseathis morning, Zofran x1 given, placed on IV fluids, plan for OR this afternoon with orthopedics, remains NPO, holding Lovenox for OR Objective Medications: Current Facility-Administered Medications: acetaminophen (TYLENOL) tablet 1,000 mg, 1,000 mg, oral, Q6H, Noel Islas MD, 1,000 mg at 12/09/23 1122 ALPRAZolam (XANAX) tablet 0.5 mg, 0.5 mg, oral, BID PRN, Noel Islas MD, 0.5 mg at 12/09/23 1003 [Held by Provider] apixaban (ELIQUIS) tablet 5 mg, 5 mg, oral, BID, Noel Islas MD carvediloL (COREG) tablet 50 mg, 50 mg, oral, BID with meals (bkfst, dinner), Noel Islas MD, 50 mg at 12/09/23 0826 dextrose gel in packet 15 g, 15 g, oral, Q15 Min PRN OR dextrose (D10W) 10% bolus 250 mL, 250 mL, intravenous, Q15 Min PRN, Emy Sanchez NP [Held by Provider] enoxaparin (LOVENOX) syringe 30 mg, 30 mg, subcutaneous, Q12H [facility], Natan Islas MD, 30 mg at 12/08/23 2336 FLUoxetine (PROzac) capsule 20 mg, 20 mg, oral, Daily, Emy Sanchez NP, 20 mg at 12/09/23 0900 furosemide (LASIX) tablet 40 mg, 40 mg, oral, Daily, Noel Islas MD, 40 mg at 12/09/23 0826 glucagon injection 1 mg, 1 mg, intramuscular, Q30 Min PRN, Emy Sanchez NP HYDROmorphone (DILAUDID) injection 0.5 mg, 0.5 mg, intravenous, Q2H PRN, Whitney Lovelace MD, 0.5 mg at 12/08/23 2226 insulin lispro (HumaLOG, ADMELOG) 100 unit/mL injection 0-10 Units, 0-10 Units, subcutaneous, Q4H [facility], Emy Sanchez NP labetaloL (NORMODYNE,TRANDATE) injection 10 mg, 10 mg, intravenous, Once PRN, Alia Ibarra MD levothyroxine (SYNTHROID) tablet 50 mcg, 50 mcg, oral, Daily, Noel Islas MD, 50 mcg at 12/09/23 08 lidocaine (ASPERCREME) 4 % patch 1 patch, 1 patch, transdermal, Q24H, Sukhjinder Cao MD, 1patch at 12/08/23 1858 losartan (COZAAR) tablet 100 mg, 100 mg, oral, Daily, Noel Islas MD, 100 mg at 12/09/23 0826 oxyCODONE (ROXICODONE) tablet 5 mg, 5 mg, oral, Q4H PRN, Noel Islas MD, 5 mg at 12/09/23 0859 polyethylene glycol (MIRALAX) packet 17 g, 17 g, oral, Daily, Noel Islas MD, 17 g at 12/09/23 08 rosuvastatin (CRESTOR) tablet 20 mg, 20 mg, oral, Daily, Noel Islas MD, 20 mg at 6 senna (SENOKOT) tablet 1 tablet, 1 tablet, oral, Daily PRN, Noel Islas MD sodium chloride 0.9% infusion, 75 mL/hr, intravenous, Continuous, Sink, Emy Dorado NP, LastRate: 75 mL/hr at 12/09/23842, 75 mL/hr at 12/09/23842 spironolactone (ALDACTONE) tablet 50 mg, 50 mg, oral, Daily, Noel Islas MD, 50 mg at 12/09/23826 Past Medical: Past Medical History: Diagnosis Date Adrenal nodule (HCC) Anxiety Aortic stenosis, moderate Cardiomyopathy (HCC) Diabetes mellitus (HCC) GERD (gastroesophageal reflux disease) Heart murmur HFrEF (heart failure with reduced ejection fraction) ([facility]/HCC) (HCC) Hyperlipidemia Hypothyroidism Insomnia Mitral regurgitation Motion sickness NSTEMI (non-ST elevated myocardial infarction) ([facility]) ([facility]) Obesity AYAD on CPAP Patellar sleeve fracture of left knee PONV (postoperative nausea and vomiting) Pulmonary embolism (HCC) Sleep apnea Zenker's diverticulum Surgical History: Past Surgical History: Procedure Laterality Date BREAST LUMPECTOMY CHOLECYSTECTOMY HAND SURGERY Left plate & screws HYSTERECTOMY INCISION AND DRAINAGE FEMUR Left 05/22/2019 KIDNEY STONE SURGERY Is&Os: I/O last 2 completed shifts: In: - Out: 650 [Urine:650] No intake/output data recorded. Physical Exam: 24hr Min/Max: Temp Min: 36.6 ??C (97.9 ??F) Max: 36.8 ??C (98.2 ??F) Pulse Min: 66 Max: 97 BP Min: 84/61 Max: 163/73 Resp Min: 11 Max: 20 SpO2 Min: 94 % Max: 99 % Physical Exam Constitutional: alert and oriented x3 and no acute distress HEENT: Pupils equal, EOMs grossly normal, mucous membranes moist Respiratory: equal chest rise bilaterally and respirations unlabored Abdomen: soft, non-distended Skin: warm, well perfused and extremities non-edematous Left hip ecchymotic, TTP Labs/Imaging: Recent Labs Lab Units 12/08/23 1135 WBC K/cumm 6.5 HEMOGLOBIN g/dL 11.3* HEMATOCRIT % 35.0* PLATELETS K/cumm 204 Recent Labs Lab Units 12/09/23 0834 12/09/23 0001 12/08/23205112/08/23 1135 SODIUM mmol/L -- -- -- 137 POTASSIUM PLASMA mmol/L -- -- -- 4.9 CHLORIDE mmol/L -- -- -- 105 CO2 mmol/L -- -- -- 27 BUN SERUM mg/dL -- -- -- 22 CREATININE mg/dL -- -- -- 0.63 GLUCOSE mg/dL -- -- -- 105 POC GLUCOSE MONITOR mg/dL 119 161 170 -- CALCIUM mg/dL -- -- -- 10.0 Recent Labs Lab Units 12/08/23 1135 PROTIME (PT) sec 17.1* INR 1.57* CT Pelvis WO Contrast Result Date: 12/08/2023 Comminuted and mildly impacted intertrochanteric fracture left femur Dictated by: Jamin Singh MD The radiology attending physician has personally reviewed this study, and had reviewed and/or editedthis written report and agrees with it. Electronically signed by: Patricio Galarza MD CT Femur Left WO Contrast Result Date: 12/08/2023 Comminuted and mildly impacted intertrochanteric fracture left femur Dictated by: Jamin Singh MD The radiology attending physician has personally reviewed this study, and had reviewed and/or editedthis written report and agrees with it. Electronically signed by: Patricio Galarza MD XR Knee Left 4 or More Views Result Date: 12/08/2023 FINDINGS/IMPRESSION: Left knee: Redemonstration of distal left femoral resection with endoprosthesis and left knee hinged arthroplasty. Intact hardware. No evidence of periprosthetic fracture or lucency. No acute fracture or dislocation. Dictated by: Mary Jane Birmingham MD The radiology attending physician has personally reviewed this study, and had reviewed and/or edited this written report and agreeswith it. Electronically signed by: Eldon Castañeda M.D. XR Hip Left 1 View Result Date: 12/08/2023 Suboptimal evaluation of the intertrochanteric fracture of the proximal left femur on this tractionview. Electronically signed by: Shelton Fagan M.D., Ph.D XR Shoulder Left 2 or More Views Result Date: 12/08/2023 1. No fracture identified. 2. Incomplete views of the glenohumeral and acromioclavicular joints. Electronically signed by: Shelton Fagan M.D., Ph.D XR Hip Left 2 or 3 Views Result Date: 12/08/2023 Intertrochanteric extra-articular proximal left femur fracture is suggestion of mild comminution. Electronically signed by: Shelton Fagan M.D., Ph.D XR Chest 1 Vw Portable Result Date: 12/08/2023 1. Displaced extra articular intertrochanteric fracture of the proximal left femur with suggestion of comminution. 2. No acute findings on chest radiograph. Electronically signed by: Shelton Fagan M.D., Ph.D XR Pelvis 1 or 2 Views Result Date: 12/08/2023 1. Displaced extra articular intertrochanteric fracture of the proximal left femur with suggestion of comminution. 2. No acute findings on chest radiograph. Electronically signed by: Shelton Fagan M.D., Ph.D XR Femur Left 2 or More Views Result Date: 12/08/2023 1. Displaced extra articular intertrochanteric fracture of the proximal left femur with suggestion of comminution. 2. No acute findings on chest radiograph. Electronically signed by: Shelton Fagan M.D., Ph.D I have independently reviewed and interpreted all relevant lab and radiographic data. Assessment/Plan Trauma Surgical Assessment and Plan Advanced care planning/counseling discussion Assessment & Plan Discussed with patient at bedside regarding code status. She does not have paperwork with her, however she would like to remain DNR/DNI after surgery today. DNR (do not resuscitate) Assessment & Plan Patient wishes to be DNR after OR Encounter for medication review Assessment & Plan Medications reviewed and updated in admissions tab Home pharmacy [facility] Discharge planning issues Assessment & Plan 12/08 OR with orthopedics Closed nondisplaced intertrochanteric fracture of left femur ([facility]) ([facility]) Assessment & Plan - ortho consult - Ortho planning OR for ORIF of L intertrochanteric femur fx - NWB LLE - NPO until further notice -Bone health referral Resume home anticoagulation at discharge WAI (generalized anxiety disorder) Assessment & Plan Home xanax, continued PRN Essential hypertension Assessment & Plan Continue home Coreg, lasix, cozaar, spironolactone Type 2 diabetes mellitus without complications ([facility]) ([facility]) Assessment & Plan Continue DM diet with SSI Holding home glipizide and metformin A1C pending Acquired hypothyroidism Assessment & Plan Continue home levothyroxine Paroxysmal atrial fibrillation ([facility]) ([facility]) Assessment & Plan Holding home eliquis FEN: These fluid and electrolyte abnormalities are being treated, evaluated or monitored: No fluid or electrolyte disorders Lines/Drains/Tubes: PIV DVT Prophylaxis: lovenox- holding for OR Diet: NPO Diet Activity: NWB LLE GI Prophylaxis: none Code Status: Full Code Total time spent included the following activities caring for this patient: Patient chart review, Reviewing/obtaining history, Examination and evaluation, Counseling/educating patient/family/caregiver, Ordering medications/tests/procedures, Referring & communicating with other health care taker, Documenting clinical information in the health record, Independent interpretation of results, Care coordination, and Complex wound care 45 minutes All care plans discussed with rounding/operative attending: MD Emy Engel NP Cosigned by Kevin Corrigan MD at 12/10/2023 11:00 AM CDT Associated attestation - Kevin Corrigan MD - 12/10/2023 11:00 AM CDT I have personally seen and examined this patient on the date of service as documented on the [facility]WIS note and have reviewed and confirmed the history, physical exam, laboratory,radiographic data, assessment and plan as documented by the LEWIS. Kevin Corrigan MD Section of Acute and Critical Care Surgery * Cynthia Metcalf OT - 12/09/2023 7:10 AM CDT Occupational Therapy 12/09/23 0710 General OT Missed Visit Reason Procedure/testing/appointment (Planned OR this date; OT to f/u post-op) * Mahogany Zamudio MD - 12/09/2023 5:59 AM CDT Orthopaedic Trauma Service Daily Progress Note Admit Date: 12/08/2023 Hospital Day: 1 [facility] Dx: L IT fx Injury Mechanism: fall going up a step OI: None PMHx: L DFR s/p distal femur fx (2019), Afib on eliquis, PE, HTN, HLD, T2DM, CHF, CVA with right sided residual Procedure(s): DHS L IT fx [phone] (pt) [phone] (son) Interval History: 12/09/23: AFVSS. WBC 6.5, Hgb 11.3; Hct 35.0. Cr 0.63. B. Exam: Pain controlled. NVI, Tert + L shoulder pain, neg XRs. Plan for OR today, keep NPO Objective Vitals: 24hr Min/Max: Temp Min: 36.6 ??C (97.9 ??F) Max: 37.1 ??C (98.7 ??F) Pulse Min: 79 Max: 97 BP Min: 122/87 Max: 163/73 Resp Min: 11 Max: 20 SpO2 Min: 94 % Max: 99 % No intake/output data recorded. I/O this shift: In: - Out: 650 [Urine:650] Physical Exam: Gen: No acute distress Alert and oriented: x3 Extremity Left Lower extremity Dressing/wound: n/a Immobilization: n/a Sensation: intact to light touch in the superficial peroneal, deep peroneal, and tibial distributions Motor: fires tibialis anterior, gastroc-soleus complex, extensor hallucis longus, flexor hallucis longus Perfusion: 2+ dorsalis pedis pulse Tertiary Exam Findings: + L shoulder pain , shoulder XRs neg Lab/Diagnostic Review: Recent Labs Lab Units 12/09/23 0001 12/08/23205112/08/23 1135 SODIUM mmol/L -- -- 137 POTASSIUM PLASMA mmol/L -- -- 4.9 CHLORIDE mmol/L -- -- 105 CO2 mmol/L -- -- 27 ANIONGAP mmol/L -- -- 5 GLUCOSE mg/dL -- -- 105 POC GLUCOSE MONITOR mg/dL 161 < > -- BUN SERUM mg/dL -- -- 22 CREATININE mg/dL -- -- 0.63 CALCIUM mg/dL -- -- 10.0 ALBUMIN g/dL -- -- 3.9 ALK PHOS Units/L -- -- 75 ALT Units/L -- -- 21 AST Units/L -- -- 25 BILIRUBIN TOTAL mg/dL -- -- 0.4 WBC K/cumm -- -- 6.5 HEMOGLOBIN g/dL -- -- 11.3* HEMATOCRIT % -- -- 35.0* PLATELETS K/cumm -- -- 204 NEUTROS PCT % -- -- 73.8 LYMPHS PCT % -- -- 16.9 MONOS PCT % -- -- 7.4 EOS PCT % -- -- 1.2 APTT sec -- -- 33 INR -- -- 1.57* < > = values in this interval not displayed. Micro: Lab Results Component Value Date MICROBIOLOGY 05/25/2021 Final Report: Less than 100,000 colonies/mL (clinically insignificant growth based on current clinical standards) MICROBIOLOGY Final Report: Negative 05/29/2019 Assessment/Plan: 83 y.o. female p/w the above injuries. Ortho is planning OR today for above WB Status: Non-weight bearing left lower extremity Immobilization: na Activity: Ambulate with assist after OR Therapy: PT/OT for OOB/mobilization as tolerated after OR Precautions: None DVT ppx: Hold for OR today Drain: n/a Antibiotics: Periop: Ancef 1-2gm IV Q8hrs for 24 hours postoperative Cultures: na Lucio: Per primary Diet: NPO for OR today Additional Needs: Bone health referral at discharge Ortho Trauma will continue to follow this patient's hospital course. Dispo: Pending progress, postoperative recovery, and progress with therapy Follow-Up: We have not yet scheduled this patient for an appointment, but we will contact the patient with the details including the timing and location of their appointment once it is scheduled. Edilma Zamudio M.D (Madeline). Orthopaedic Surgery Resident, PGY-2 [facility] [employer] [facility] For questions please reach out to: [facility] 7:30p-6:30a (Night Floor Resident): [phone] Consult Resident: [phone] Specific Resident: Please use [employer] ([employer]) to page/call appropriate OrthopaedicSurgery Team/Resident Not sure which resident is on for the service? Check the Call Schedule: IRLANDA for [facility] Orthopaedic Surgery (pw: [facility]) For ortho primary adult patients, Thu - Thu 6a-6p: Call [phone] nurses station for PA/PRODUCTION CONTROL SUPERVISOR ([phone]) For ortho primary pediatric patients, Thu - Thu 6a-6p: Call 10th floor nurses station for PRODUCTION CONTROL SUPERVISOR Please call with questions during daytime. See below for overnight issues. If you know the resident's name on the appropriate orthopaedic surgery team, please use [employer] to page resident directly. If questions arise and the appropriate resident can't be reached or you are calling overnight, please contact [phone] ([facility] 7:30 PM - 6:30 AM - Floor Resident) or [phone] (24 hours/day - Consult Resident) Cosigned by Homer Villalobos MD at 12/09/2023 10:54 AM CDT * Alia Ibarra MD - 12/08/2023 10:50 PM CDT Images from the original note were not included. 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 She was walking down two steps to her backyard, lost her footing and fell on her left side, landed on thegrass. Denies HS or LOC. HDS on presentation. Primary survey unremarkable. GCS 15. She reports severe pain of the left hip. On exam, pain with passive flexion at the left hip, tender to palpation of the left hip and lumbar back. XR chest, pelvis, left femur, left hip, left shoulder; CT pelvis and left femur done, notable for a left displaced IT fracture. Of note, she denies lightheadedness, dizziness, chest pain, headache, shortness of breath or palpitations prior to the fall. Injury: #Left displaced IT fracture Edited by: Noel Islas MD at 12/08/20232046 Patent is resting comfortably in bed. AF, BP elevated, sats well on 2L NC. Pain well controlled. Denies nausea/vomiting, SOB or chest pain. Left leg abducted with knee bended, no visible deformity. Objective BP (!) 150/102 Pulse 91 Temp 36.6 ??C (97.9 ??F) (Oral) Resp 16 Ht 157.5 cm (5' 2.01 ) Wt84.8 kg (186 lb 15.2 oz) SpO2 99% BMI 34.18 kg/m?? General: Laying in bed, awake, in no acute distress HEENT: Pupils equal, EOMs grossly normal, mucous membranes moist Pulmonary: Non-labored breathing, equal excursion bilaterally Cardiovascular: Regular rate, well perfused Respiratory: equal chest rise bilaterally and respirations unlabored Abdomen: soft, non-distended Skin: warm, well perfused and extremities non-edematous Assessment/Plan Closed nondisplaced intertrochanteric fracture of left femur (CMS/HCC) ([facility]) Assessment & Plan - ortho consult - Ortho planning OR for ORIF of L intertrochanteric femur fx - NWB LLE - NPO until further notice Alia Ibarra MD PGY1 General Surgery Resident Cosigned by Kevin Corrigan MD at 12/10/2023 10:45 AM CDT Associated attestation - Kevin Corrigan MD - 12/10/2023 10:45 AM CDT I have personally seen and examined this patient on the date of service as documented on the Resident note and have reviewed and confirmed the history, physical exam, laboratory,radiographic data, assessment and plan as documented by the resident. eKvin Corrigan MD Section of Acute and Critical Care Surgery documented in this encounter H&P Notes * Homer Villalobos MD - 12/09/2023 12:40 PM CDT I have reviewed the H&P, examined the patient, and endorse the findings as written. Plan of Care : Based on the above findings, I consider Prema Pearce to be an acceptable risk for : Procedure(s): INTRAMEDULLARY NAILING FEMUR - ANTEGRADE - INTERTROCHANTERIC OPEN REDUCTION INTERNAL FIXATION - FEMUR Source Note - Giacomo Carrizales MD - 12/08/2023 3:04 PM CDT Orthopaedic Surgery Consult December 08, 2023 3:14 PM Reason for Consult: L intertrochanteric femur fx [place]ing [place] [facility] [place]: L intertrochanteric femur fx Injury Mechanism: fall going up a step OI: None PMHx: L DFR s/p distal femur fx (2019), Afib on eliquis, PE, HTN, HLD, T2DM, CHF, CVA with right sided residual Plan: PENDING IMN+ORIF of L intertrochanteric femur fx Procedure(s): PENDING IMN+ORIF of L intertrochanteric femur fx [phone] (pt) [phone] (son) HPI: 83 y.o. right hand dominant female s/p fall while ascending stairs p/w L intertrochanteric femur fx. Last dose eliquis 8:15AM 12/07 Exam: Closed, NVID OI: None. Consulting Services: Ortho, GTS. PMHx: as above. Soc Hx: non smoker, +social EtOH, - drugs, comm amb w/o assist, retired, lives alone Past Medical History: Diagnosis Date Adrenal nodule (HCC) Anxiety Aortic stenosis, moderate Cardiomyopathy (HCC) Diabetes mellitus (HCC) GERD (gastroesophageal reflux disease) Heart murmur HFrEF (heart failure with reduced ejection fraction) (CMS/HCC) (HCC) Hyperlipidemia Hypothyroidism Insomnia Mitral regurgitation NSTEMI (non-ST elevated myocardial infarction) (CMS/HCC) (HCC) Obesity AYAD on CPAP Patellar sleeve fracture of left knee PONV (postoperative nausea and vomiting) Pulmonary embolism (HCC) Sleep apnea Zenker's diverticulum Past Surgical History: Procedure Laterality Date BREAST LUMPECTOMY CHOLECYSTECTOMY HAND SURGERY Left plate & screws HYSTERECTOMY INCISION AND DRAINAGE FEMUR Left 05/22/2019 KIDNEY STONE SURGERY Prior to Admission medications Medication Sig Start Date End Date Taking? Authorizing Provider ALPRAZolam (XANAX) 0.5 mg tablet Take 1 tablet (0.5 mg total) by mouth 2 (two) times a day as needed for anxiety 11/06/23 Cuba Larsen MD apixaban (Eliquis) 5 mg tablet Take 1 tablet (5 mg total) by mouth 2 (two) times a day 08/11/23 Ivonne Perez MD blood glucose diagnostic (glucose blood) strip One strip daily to check glucose 03/19/23 03/18/24 Cuba Larsen MD blood-glucose meter misc Use daily or as directed for monitoring of diabetes. 03/19/23 Cuba Larsen MD CALCIUM CARBONATE ORAL Take 600 mg by mouth 2 (two) times a day ProviderCameron MD carvediloL (COREG) 25 mg tablet Take 2 tablets (50 mg total) by mouth 2 (two) times a day with meals 10/13/23 Chris Mendes MD cholecalciferol (VITAMIN D-3) 2000 unit tablet Take by mouth ProviderCameron MD FLUoxetine (PROzac) 20 mg capsule Take 1 capsule (20 mg total) by mouth daily 09/02/23 DavidP. Larsen MD furosemide (LASIX) 40 mg tablet Take 1 tablet (40 mg total) by mouth daily ProviderCameron MD glipiZIDE (GLUCOTROL) 10 mg tablet TAKE 1 TABLET BY MOUTH TWICE A DAY BEFORE BREAKFAST AND LUNCH 11/19/23 Cuba Larsen MD lancets misc 1 each by other route daily 03/19/23 Cuba Larsen MD levothyroxine (SYNTHROID) 50 mcg tablet TAKE 1 TABLET BY MOUTH EVERY DAY 11/19/23 Cuba Larsen MD losartan (COZAAR) 100 mg tablet TAKE 1 TABLET BY MOUTH EVERY DAY 06/18/23 Chris Mendes MD melatonin 5 mg tablet Take 1 tablet (5 mg total) by mouth nightly 08/10/23 Ivonne Perez MD metFORMIN (GLUCOPHAGE) 500 mg tablet TAKE 1 TABLET BY MOUTH TWICE A DAY WITH FOOD 09/07/23 Cuba Larsen MD rosuvastatin (CRESTOR) 20 mg tablet TAKE 1 TABLET BY MOUTH EVERY DAY 09/02/23 Chris Mendes MD spironolactone (ALDACTONE) 50 mg tablet Take 1 tablet (50 mg total) by mouth daily 11/02/23 Racquel Abebe NP Allergies Allergen Reactions Amlodipine Shortness of breath Prasanth Inhibitors Cough Reaction: COUGH, Citalopram Lisinopril Lisinopril-Hydrochlorothiazide Dizziness and Nausea only Dizzy, nauseated Social History Tobacco Use Smoking status: Never Smokeless tobacco: Never Substance and Sexual Activity Drug use: Never Sexual activity: Defer Alcohol Use: Unknown (09/02/2023) AUDIT-C Frequency of Alcohol Consumption: Monthly or less Average Number of Drinks: 1 or 2 Frequency of Binge Drinking: Not on file Family History Problem Relation Age of Onset Sudden Cardiac Mother Family history of sudden cardiac - (Added by PAUL Conv) Heart failure Mother Family history of heart failure - (Added by TW Conv) Heart disease Mother Heart attack Father Family history of heart attack - (Added by TW Conv) Diabetes Father Family history of diabetes mellitus - (Added by TW Conv) Hypertension Father Family hx of hypertension - (Added by TW Conv) Heart disease Father Diabetes Son Family history of diabetes mellitus - (Added by TW Conv) Anesthesia problems Neg Hx Review of Systems: Review of systems per HPI and otherwise all other systems are negative other than what is noted above. Objective Physical Exam: Gen: alert and no distress. Alert and oriented: x3 Normal respirations, no dyspnea with speaking Remainder of extremities other than what noted below were non-tender to palpation, with no obvious deformity and distal extremity WWP Unaffected Bilateral Upper Extremity No obvious deformity, skin intact, no ecchymosis No tenderness to palpation throughout extremity Grossly fires extremity 2+ radial pulse Fingers warm and well perfused Affected Left Lower Extremity Skin: Skin grossly intact Appearance: Externally Rotated +ecchymosis and swelling Palpation: tenderness to palpation over greater trochanter ROM: Pain with range of motion of left leg at hip Motor: fires TA/EHL/FHL/GS Sensory: SILT sp/dp/t/ferrell/sa Vascular: palpable pulses, toes WWP Unaffected Right Lower Extremity No obvious deformity, skin intact, no ecchymosis No tenderness to palpation throughout extremity Grossly fires extremity Toes warm and well perfused Lab/Radiology/Diagnostic Review: Laboratory review: Recent Results (from the past 24 hour(s)) CBC with auto differential Collection Time: 12/08/23 11:35 AM Result Value Ref Range WBC 6.5 3.8 - 9.9 K/cumm Hgb 11.3 (L) 11.9 - 15.5 g/dL Hct 35.0 (L) 35.6 - 45.5 % Plt 204 150 - 400 K/cumm MPV 9.8 9.1 - 12.3 fL RBC 3.58 (L) 3.90 - 5.20 M/cumm MCV 97.8 (H) 81.3 - 96.4 fL MCH 31.6 27.1 - 33.3 pg MCHC 32.3 32.3 - 35.7 g/dL RDW CV 14.1 11.1 - 14.9 % RDW SD 50.4 (H) 35.7 - 48.1 fL NRBC abs 0.00 0.00 - 0.01 K/cumm Comprehensive metabolic panel Collection Time: 12/08/23 11:35 AM Result Value Ref Range Sodium 137 135 - 145 mmol/L Potassium, pl 4.9 3.3 - 4.9 mmol/L Chloride 105 97 - 110 mmol/L CO2 27 22 - 32 mmol/L Anion gap 5 2 - 15 mmol/L BUN 22 6 - 25 mg/dL Creatinine 0.63 0.60 - 1.10 mg/dL Glucose 105 70 - 199 mg/dL Calcium 10.0 8.5 - 10.3 mg/dL Bilirubin, total 0.4 0.1 - 1.2 mg/dL Protein, pl 7.0 6.5 - 8.5 g/dL Albumin 3.9 3.5 - 5.0 g/dL Alk phos 75 40 - 130 Units/L ALT 21 7 - 45 Units/L AST 25 10 - 45 Units/L Protime-INR Collection Time: 12/08/23 11:35 AM Result Value Ref Range PT 17.1 (H) 9.7 - 13.0 sec INR 1.57 (H) 0.90 - 1.20 aPTT Collection Time: 12/08/23 11:35 AM Result Value Ref Range aPTT 33 28 - 38 sec Type and screen Collection Time: 12/08/23 11:35 AM Result Value Ref Range Gian, indirect Negative ABO Rh O Positive Differential, auto Collection Time: 12/08/23 11:35 AM Result Value Ref Range Neutrophil abs 4.8 1.5 - 6.5 K/cumm Imm gran abs 0.0 0.0 - 0.1 K/cumm Lymphocyte abs 1.1 0.8 - 3.3 K/cumm Monocyte abs 0.5 0.2 - 0.8 K/cumm Eosinophil abs 0.1 0.0 - 0.5 K/cumm Basophil abs 0.0 0.0 - 0.1 K/cumm Neutrophil pct 73.8 % Imm gran pct 0.2 % Lymphocyte pct 16.9 % Monocyte pct 7.4 % Eosinophil pct 1.2 % Basophil pct 0.5 % eGFR Collection Time: 12/08/23 11:35 AM Result Value Ref Range eGFR 89 >=60 mL/min/1.73 m2 Radiology Review: I independently reviewed and interpreted the imaging with the following findings: L intertrochanteric femur fx Clinical Images: See media tab for if present Procedure: None Assessment/Plan: 83 y.o. female p/w L intertrochanteric femur fx s/p slip and fall while ascending stairs. Ortho planning OR for ORIF of L intertrochanteric femur fx Recommend consultation with GTS for admission Weight Bearing: NWB LLE Diet: NPO until further notice DVT ppx: Please hold AM dose on day of OR if on DVT ppx Further Workup: Pre-operative labs as indicated [CBC/BMP/coags/T&S/UA/CXR/EKG] Further Imaging: none Pain control: per primary Abx: n/a Will discuss with the ortho team prior to further recommendations. Consult was/will be staffed with senior/attending/resident team rehabilitation assistant who agrees w plan. Follow-up will be arranged by the orthopaedic team. Will plan for follow-up at [facility] (call [phone] to make an appointment) or [facility] (call [phone] to make an appointment) pending hospital/ ED course. Giacomo Carrizales M.D. Orthopaedic Surgery Resident, PGY-1 [facility] For questions please reach out to: Keyla 7:30p-6:30a (Night Floor Resident): [phone] Consult Resident: [phone] Specific Resident: Please use [employer] [email or web address]) to page/call appropriate OrthopaedicSurgery Team/Resident Not sure which resident is on for the service? Check the Call Schedule: [facility] for [facility] Orthopaedic Surgery (pw: [facility]) For ortho primary adult patients, Thu - Thu 6a-6p: Call [phone] nurses station for PA/PRODUCTION CONTROL SUPERVISOR ([phone]) For ortho primary pediatric patients, Thu - Thu 6a-6p: Call 10th floor nurses station for PRODUCTION CONTROL SUPERVISOR Cosigned by Homer Villalobos MD at 12/08/2023 7:09 PM CDT documented in this encounter Consult Notes * Emile Wallace MD - 12/10/2023 2:41 PM CDTAssociated Order(s): IP CONSULT TO CARDIOLOGY Cardiology Consult Note - General Cardiology Patient Name: Prema Pearce : 1940 Date of Service: 12/10/23 Requesting Attending: Kevin Corrigan,* Reason for Consult: Other: Post op hypotension in the setting of chronic a fib with hgb greater than 8 unresponsive to fluid Chief Complaint: Hypotension HPI Prema Pearce is a 83 y.o. 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 General Cardiology has been consulted for hypotension and afib POD 1 from ORIF of the L femur on 12/08, uncomplicated other than EBL ~400mL. She is typically hypertensive to 150-130 / 90s. Received her home BP meds in the AM (coreg 50, lasix 40 (only taking prn OP), losartan 100, aldactone 50) and subsequently developed hypotension to 60-70s / 40-50s. Afterwards, there was concern for worsening LFD and LUE drift c/f for CVA 2/2 watershed event vs embolism (2 days held Eliquis). Stroke alert was called, NIHSS 3, no go for TNK or MT. BPs remained low with mando 66/44 and ACT was called. She received ~1L fluid and 1u pRBCs. EKG obtained showing atrial fibrillation, stable biphasic T- waves in lead III compared to prior. Intermittent rates >100 but HR mostly 90-100s. Regarding heart history, she follows with Dr. Mendes for afib and NYHA class 1 HF with lasix PRN. There was consideration of watchman procedure prior due to her having 2 embolic strokes in the setting of holding eliquis briefly. Her HF is well controlled. Last TTE 07/2023 w/ LVEF 66%, normal LV cavity size, LAE, low gradient low flow , PASP 39, indeterminate diastolic dysfunction, reduced GLS. On interview, she reports being asymptomatic. She is tearful on exam about her and son, whoare , and because she had to give up a pet because she was no longer able to take care of them. She is also tearful because she used to love cooking and working in the yard but hasn't been able to recently because of functional status. Review of Systems: Review of systems as per HPI and, otherwise all other systems are negative. PMHX: has a past medical history of Adrenal nodule ([facility]), Anxiety, Aortic stenosis, moderate, Cardiomyopathy ([facility]), Diabetes mellitus ([facility]), GERD (gastroesophageal reflux disease), Heart murmur, HFrEF (heart failure with reduced ejection fraction) ([facility]) ([facility]), Hyperlipidemia, Hypothyroidism, Ins omnia, Mitral regurgitation, Motion sickness, NSTEMI (non-ST elevated myocardial infarction) ([facility]) ([facility]), Obesity, AYAD on CPAP, Patellar sleeve fracture of left knee, PONV (postoperative nausea and vomiting), Pulmonary embolism ([facility]), Sleep apnea, and Zenker's diverticulum. PSHX: has a past surgical history that includes Hysterectomy; Cholecystectomy; Breast lumpectomy; Hand surgery (Left); Incision and drainage femur (Left, 05/22/2019); and Kidney stone surgery. Family Hx: family history includes Diabetes in her father and son; Heart attack in her father; Heart disease in her father and mother; Heart failure in her mother; Hypertension in her father; Sudden Cardiac in her mother. Social Hx: reports that she has never smoked. She has never used smokeless tobacco. She reports that she does not use drugs. Allergies: Allergies Allergen Reactions Amlodipine Shortness of breath Prasanth Inhibitors Cough Reaction: COUGH, Citalopram Lisinopril Lisinopril-Hydrochlorothiazide Dizziness and Nausea only Dizzy, nauseated Home Medications: HOME MEDICATIONS : ALPRAZolam (XANAX) 0.5 mg tablet apixaban (Eliquis) 5 mg tablet blood glucose diagnostic (glucose blood) strip blood-glucose meter misc CALCIUM CARBONATE ORAL carvediloL (COREG) 25 mg tablet cholecalciferol (VITAMIN D-3) 2000 unit tablet FLUoxetine (PROzac) 20 mg capsule furosemide (LASIX) 40 mg tablet glipiZIDE (GLUCOTROL) 10 mg tablet lancets misc levothyroxine (SYNTHROID) 50 mcg tablet losartan (COZAAR) 100 mg tablet melatonin 5 mg tablet metFORMIN (GLUCOPHAGE) 500 mg tablet rosuvastatin (CRESTOR) 20 mg tablet spironolactone (ALDACTONE) 50 mg tablet Current Medications: acetaminophen, 1,000 mg, oral, Q6H [Held by Provider] carvediloL, 50 mg, oral, BID with meals (bkfst, dinner) ceFAZolin, 2,000 mg, intravenous, Q8H MISHA enoxaparin, 30 mg, subcutaneous, Q12H MISHA FLUoxetine, 20 mg, oral, Daily insulin lispro, 0-10 Units, subcutaneous, Q4H MISHA levothyroxine, 50 mcg, oral, Daily lidocaine, 1 patch, transdermal, Q24H polyethylene glycol, 17 g, oral, Daily rosuvastatin, 20 mg, oral, Daily Objective Vital Signs: 24hr Min/Max: Temp Min: 36.2 ??C (97.2 ??F) Max: 36.9 ??C (98.4 ??F) Pulse Min: 72 Max: 112 BP Min: 66/44 Max: 135/82 Resp Min: 11 Max: 19 SpO2 Min: 92 % Max: 100 % Most Recent: Vitals: 12/10/23 1413 BP: (!) 84/43 Pulse: Resp: Temp: SpO2: Intake/Output: Intake/Output Summary (Last 24 hours) at 12/10/2023 1441 Last data filed at 12/10/2023 1413 Gross per 24 hour Intake 2145 ml Output 620 ml Net 1525 ml Physical Exam: General appearance: no acute distress, tearful HEENT: NCAT, MMM, anicteric Lungs: CTAB, no w/r/r, non-labored Heart: irregular, S1, S2 normal, no murmur, rub or gallop. JVP not elevated, no LE edema Abdomen: soft, NT/ND; bowel sounds normal Extremities: extremities normal, warm and well-perfused, equal pulses Skin: warm and dry Neurologic: No abnormal movements, non-focal exam Psych: Normal mood and affect Lab/Radiology/Diagnostic Review: Labs: Recent Labs Lab Units 12/10/23 1217 12/09/23 2224 12/08/23 1135 HEMOGLOBIN g/dL 8.4* 8.8* 11.3* HEMATOCRIT % 25.8* 27.8* 35.0* WBC K/cumm 5.8 8.1 6.5 PLATELETS K/cumm 162 164 204 Recent Labs Lab Units 12/09/23 2224 SODIUM mmol/L 140 POTASSIUM PLASMA mmol/L 3.8 CHLORIDE mmol/L 112* CO2 mmol/L 24 ANIONGAP mmol/L 4 BUN SERUM mg/dL 21 CREATININE mg/dL 0.71 CALCIUM mg/dL 7.0* MAGNESIUM mg/dL 1.2* Recent Labs Lab Units 12/08/23 1135 ALBUMIN g/dL 3.9 ALK PHOS Units/L 75 AST Units/L 25 ALT Units/L 21 BILIRUBIN TOTAL mg/dL 0.4 Recent Labs Lab Units 12/08/23 1135 APTT sec 33 INR 1.57* Cultures: Lab Results Component Value Date MICROBIOLOGY 05/25/2021 Final Report: Less than 100,000 colonies/mL (clinically insignificant growth based on current clinical standards) MICROBIOLOGY Final Report: Negative 05/29/2019 I personally reviewed the Telemetry images with the following findings: Afib with rates to 100 I personally reviewed the ECG images with the following findings: Afib w/ non-specific t wave changes TTE: 07/2023 Rhythm is in AFib. LV cavity size is normal with normal systolic function. LVEF 66%. Normal LV wall thickness/mass. LA is markedly dilated. Normal RV cavity size with low normal function. Moderately calcified aortic valve with moderate LGLF . Markedly calcified MAC with no HD significant MS. Mild MR. Estimated PA systolic pressure 39+RA(5) mmHg. Reduced global LV myocardial longitudinal function and strain pattern. Normal Inferior vena cava. Normal aorta. No significant changes noted. Assessment/Plan Ms. Pearce is a 83 y.o. 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 #Hypotension #Atrial fibrillation Would favor that a combination of poor PO intake, surgical blood loss, and home dosing of PO anti-hypertensives (coreg 50, losartan 100, aldactone 50, lasix 40) has precipitated hypotension. Though she has intermittent rates > 100, it is very unlikely that her ongoing atrial fibrillation is contributing to her current clinical picture. On exam, she is mentating well, warm, and euvolemic. Her systolic function in July was normal. S/p 1u pRBC, ~1L fluid with some resolving BP. - Continue holding home BP medications and diuretics, can resume outpatient or when appropriate. Okto hold rate control agent (coreg), can tolerate higher HRs - Goal MAPs > 65. If persistently <60, can consider repeat fluid bolus challenge with cautiongiven her HF - Repeat TTE to re-assess valve and systolic function - Recommend consultation with resident services coordinator given recent life stressors We appreciate the ability to be involved in this patient's care. If after 5PM or on weekends, please page the slip cover maker rehabilitation assistant with any questions or concerns. Emile Wallace MD Internal Medicine PGY-3 2:41 PM 12/10/23 Cosigned by Tami Snowden MD at 12/10/2023 10:16 PM CDT Associated attestation - Tami Snowden MD - 12/10/2023 10:16 PM CDT Attending Documentation I have seen and examined the patient on 12/10/23. I agree with the findings and plan of care as discussed with the resident/fellow. 83 y/o F with h/o Afib and prior CVA became hypotensive after resuming anti- hypertensives post ORIFand periop blood loss. Agree with volume repletion and holding anti-hypertensives until Maps recover. Patient tearful and reporting multiple symptoms consistent with either grief (depending on when she lost her and son) or MDD, including loss of interest in activities and hopelessness. Did not ask about plans for harming self or others. Primary team should pursue. Supplementary Attestation Today, I am treating the patient for hypotension post op as described in the note. Most recent creatinine was 0.71 which was used to determine medication dosing Discussed management of hypotension with patient. Tami Snowden MD 12/10/2023 10:08 PM * Denisa Pearce MD - 12/10/2023 11:24 AM CDT Hyperacute Stroke Team - [facility] Consult Note Initial information: Narrative: Ms. Pearce is a 83 y.o. female who presents as an acute tPA page. Requesting provider: Emy Sanchez NP Reason for consult: Acute stroke suspected Page time (24h format): 12/10/2023 1053 Last known well Date Last Known Well : 12/10/23 Time Last Known Well: 1000 Discovery of Symptoms - Date: 12/10/23 Discovery of Symptoms - Time: 1050 (12/10/23 1126) Assessment & Plan: Ms. Pearce is a 83 y.o. year old female with PMH significant for Afib on eliquis (last dose this 12/07), HTN, HLD, T2DM, hypothyroidism, PE (submassive, 05/2019), CHF (LVEF 66% on TTE 07/2023), and x2 prior R MCA strokes (05/2021 and 08/07/2023, both managed via mechanical thrombectomy) who is admitted for a L intertrochanteric femur fracture s/p ORIF on 12/08. Acute onset LFD and LUE drift. NIHSS 3 for LFD, LUE ataxia, and mild aphasia. She endorses having a chronic LFD but when shown a mirror she does feel like it is worse than usual. Discussed TNK with primary team but given recent major surgeryand risk of bleed, patient was a NO GO. CTA not performed due to low NIHSS. NO GO MT. It cannot be ruled out that patient has had a new stroke given her significant risk factors including held AC in patient with Afib for surgery and recent major surgery. Given low NIHSS and recent surgery patient is not a candidate for either thrombolytics or mechanical thrombectomy. DDx also includes toxic metabolic and recrudescence that may be related to pain medications. Recommendations - NPO until ADMINISTRATION PROFESSIONAL eval - Increase neurochecks to q4h - Restart AC when safe per primary - Can consider Brain MRI WO to evaluate for stroke Disposition: 6447-1 Case discussed with TYLER attending: Dr. Han The TYLER team will sign off at this time. If patient has a sudden onset neurological change pleasepage another Code Stroke. If patient otherwise requires further neurological evaluation please contact the Neuro Consult Senior on [facility]. Denisa Pearce MD 12/10/2023, 11:36 AM Chief complaint: Worsening LFD HPI: Prema Pearce is a 83 y.o. female with PMH significant for Afib on eliquis (last dose this 12/07), HTN, HLD, T2DM, hypothyroidism, PE (submassive, 05/2019), CHF (LVEF 66% on TTE 07/2023), and x2 prior R MCA strokes (05/2021 and 08/07/2023, both managed via mechanical thrombectomy) who is admitted for a L intertrochanteric femur fracture s/p ORIF on 12/08. Today around 10 am patient was in her normal state of health and recovering well from her procedure per bedside RN. Around 10:50am RN went to re-examine patient due to PT stating patient was having difficulty participating. On RN's exam LFD and LUE drift. Code Stroke called. At the CT scanner patient's NIHSS 3 for LFD, LUE ataxia, and mild aphasia. She endorses having a chronic LFD but when shown a mirror she does feel like it is worse than usual. Discussed TNK with primary team but given recent major surgery and risk of bleed, patient was a NO GO. CTA not performed due to low NIHSS. NO GO MT. Stroke risk factors: Atrial Fibrillation, CHF, Diabetes, Hyperlipidemia, Hypertension, Stroke/TIA History, and Held AC for surgery Notable home meds (i.e., anticoagulation): apixaban (eliquis) Past medical history, past surgical history, current medications, allergies, family history and social history were reviewed, and are noted at the end of this note. Vitals: 12/10/23 0733 BP: 107/70 Pulse: Resp: Temp: SpO2: NIH Stroke Scale Interval: Change of Condition Level of Consciousness (1a.): Alert, keenly responsive LOC Questions (1b.): Answers both questions correctly LOC Commands (1c.): Performs both tasks correctly Best Gaze (2.): Normal Visual (3.): No visual loss Facial Palsy (4.): Minor paralysis Motor Arm, Left (5a.): No drift Motor Arm, Right (5b.): No drift Motor Leg, Left (6a.): Amputation or joint fusion (Recent hip surgery) Motor Leg, Right (6b.): No drift Limb Ataxia (7.): Present in one limb Sensory (8.): Normal, no sensory loss Best Language (9.): Inbu-ep-cbufntif aphasia Dysarthria (10.): Normal Extinction and Inattention (11.) (Formerly Neglect): No abnormality Total: 3 (12/10/23 1127) Espitia labs (FSBG, INR, platelets, Xa): Lab Results Lab Value Date/Time GLUCOSE 146 12/10/2023 0739 GLUCOSE 157 12/09/2023 2224 GLUCOSE 80 11/27/2023 1323 INR 1.57 (H) 12/08/2023 1135 INR 2.2 (H) 05/19/2019 1134 HCT findings: Regions of new hypoattenuation within the right temporal lobe and likely the left temporal lobe is favored to represent acute ischemic infarct, although acute encephalitis is also a consideration. Recommend follow-up with contrast-enhanced MRI if clinically indicated. Thrombolytic decision: tPA decision: NO GO. Rationale: Patient with recent surgery or procedure which led to thrombolyticsbeing contraindicated tPA decision time (24 hour format): 1115 Thrombectomy decision: LVO on CTA?: N/A, patient did not have a CTA Baseline functional status: MRS 1: The patient has symptoms but no significant disability; able to carry out all activities. Intervention: NO-GO: Rationale: NIHSS <6 Physical Examination: BP 107/70 (BP Location: Right arm) Pulse 86 Temp 36.6 ??C (97.9 ??F) (Oral) Resp 18 Ht 157.5 cm (5' 2.01 ) Wt 84.8 kg (186 lb 15.2 oz) SpO2 96% BMI 34.18 kg/m?? GEN: NAD HEENT: NC/AT, MMM CV: Regular rate and rhythm PULM: No increased work of breathing ABD: Soft, nontender, nondistended EXT: Warm and well-perfused, left leg in brace SKIN: Warm and dry Neurologic Examination: Mental status: Awake, Alert, Oriented x 3 (person, place and time) Speech: Mild aphasia with some paraphasic errors, no dysarthria Cranial Nerves: CN II-XII intact except for LFD Motor: No drift in all extremities except for LLE was untested due to brace Sensory: Normal sensation to light touch in the four extremities Coordination Gait: LUE ataxia on FNF, normal on RUE, unable to test BLE due to leg brace Inattention: No extinction/inattention to double simultaneous tactile stimulation and No extinction/inattention to bilateral visual stimulus Assessment & Plan: Ms. Pearce is a 83 y.o. year old female with PMH significant for Afib on eliquis (last dose this 12/07), HTN, HLD, T2DM, hypothyroidism, PE (submassive, 05/2019), CHF (LVEF 66% on TTE 07/2023), and x2 prior R MCA strokes (05/2021 and 08/07/2023, both managed via mechanical thrombectomy) who is admitted for a L intertrochanteric femur fracture s/p ORIF on 12/08. Acute onset LFD and LUE drift. NIHSS 3 for LFD, LUE ataxia, and mild aphasia. She endorses having a chronic LFD but when shown a mirror she does feel like it is worse than usual. Discussed TNK with primary team but given recent major surgeryand risk of bleed, patient was a NO GO. CTA not performed due to low NIHSS. NO GO MT. It cannot be ruled out that patient has had a new stroke given her significant risk factors including held AC in patient with Afib for surgery and recent major surgery. Given low NIHSS and recent surgery patient is not a candidate for either thrombolytics or mechanical thrombectomy Recommendations - NPO until ADMINISTRATION PROFESSIONAL eval - Increase neurochecks to q4h - Restart AC when safe per primary - Can consider Brain MRI WO to evaluate for stroke Disposition: 6447-1 Case discussed with [facility] attending: Dr. Han The HASTE team will sign off at this time. If patient has a sudden onset neurological change pleasepage another Code Stroke. If patient otherwise requires further neurological evaluation please contact the Neuro Consult Senior on IRLANDA. Denisa Pearce MD 12/10/2023, 11:36 AM Subjective Past Medical History: Past Medical History: Diagnosis Date Adrenal nodule (HCC) Anxiety Aortic stenosis, moderate Cardiomyopathy (HCC) Diabetes mellitus (HCC) GERD (gastroesophageal reflux disease) Heart murmur HFrEF (heart failure with reduced ejection fraction) (CMS/HCC) (HCC) Hyperlipidemia Hypothyroidism Insomnia Mitral regurgitation Motion sickness NSTEMI (non-ST elevated myocardial infarction) (CMS/HCC) (HCC) Obesity AYAD on CPAP Patellar sleeve fracture of left knee PONV (postoperative nausea and vomiting) Pulmonary embolism (HCC) Sleep apnea Zenker's diverticulum Past Surgical History: Past Surgical History: Procedure Laterality Date BREAST LUMPECTOMY CHOLECYSTECTOMY HAND SURGERY Left plate & screws HYSTERECTOMY INCISION AND DRAINAGE FEMUR Left 05/22/2019 KIDNEY STONE SURGERY Medications: No current facility-administered medications on file prior to encounter. Current Outpatient Medications on File Prior to Encounter Medication Sig Dispense Refill ALPRAZolam (XANAX) 0.5 mg tablet Take 1 tablet (0.5 mg total) by mouth 2 (two) times a day as needed for anxiety 60 tablet 0 apixaban (Eliquis) 5 mg tablet Take 1 tablet (5 mg total) by mouth 2 (two) times a day 60 tablet 11 blood glucose diagnostic (glucose blood) strip One strip daily to check glucose 100 each 1 blood-glucose meter misc Use daily or as directed for monitoring of diabetes. 1 each 0 CALCIUM CARBONATE ORAL Take 600 mg by mouth 2 (two) times a day carvediloL (COREG) 25 mg tablet Take 2 tablets (50 mg total) by mouth 2 (two) times a day with meals 360 tablet 3 cholecalciferol (VITAMIN D-3) 2000 unit tablet Take by mouth FLUoxetine (PROzac) 20 mg capsule Take 1 capsule (20 mg total) by mouth daily 30 capsule 2 furosemide (LASIX) 40 mg tablet Take 1 tablet (40 mg total) by mouth daily glipiZIDE (GLUCOTROL) 10 mg tablet TAKE 1 TABLET BY MOUTH TWICE A DAY BEFORE BREAKFAST AND LUNCH 180 tablet 1 lancets misc 1 each by other route daily 100 each 1 levothyroxine (SYNTHROID) 50 mcg tablet TAKE 1 TABLET BY MOUTH EVERY DAY 90 tablet 0 losartan (COZAAR) 100 mg tablet TAKE 1 TABLET BY MOUTH EVERY DAY 90 tablet 3 melatonin 5 mg tablet Take 1 tablet (5 mg total) by mouth nightly metFORMIN (GLUCOPHAGE) 500 mg tablet TAKE 1 TABLET BY MOUTH TWICE A DAY WITH FOOD 180 tablet 1 rosuvastatin (CRESTOR) 20 mg tablet TAKE 1 TABLET BY MOUTH EVERY DAY 90 tablet 3 spironolactone (ALDACTONE) 50 mg tablet Take 1 tablet (50 mg total) by mouth daily 90 tablet 3 Allergies: Allergies Allergen Reactions Amlodipine Shortness of breath Prasanth Inhibitors Cough Reaction: COUGH, Citalopram Lisinopril Lisinopril-Hydrochlorothiazide Dizziness and Nausea only Dizzy, nauseated Family History: Family History Problem Relation Age of Onset Sudden Cardiac Mother Family history of sudden cardiac - (Added by TW Conv) Heart failure Mother Family history of heart failure - (Added by TW Conv) Heart disease Mother Heart attack Father Family history of heart attack - (Added by TW Conv) Diabetes Father Family history of diabetes mellitus - (Added by TW Conv) Hypertension Father Family hx of hypertension - (Added by TW Conv) Heart disease Father Diabetes Son Family history of diabetes mellitus - (Added by TW Conv) Anesthesia problems Neg Hx Social History: Social History Tobacco Use Smoking status: Never Smokeless tobacco: Never Substance and Sexual Activity Drug use: Never Sexual activity: Defer Alcohol Use: Not At Risk (12/09/2023) AUDIT-C Frequency of Alcohol Consumption: Never Average Number of Drinks: Patient does not drink Frequency of Binge Drinking: Never Review of Systems: A complete review of systems was performed including symptoms pertaining to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 3:15 [place] [address] [place] 6400 at 1515. Two nurses teamed up to successfully complete a head to toeskin assessment Tiara Mondragon and Minerva Marcano. The findings of this resulted in the following: surgical site LLE. See full assessment for skin details. The appropriate goals and interventions have been implemented and documented. Will continue to monitor closely. * Mary Anderson RN - 12/10/2023 12:23 PM CDT ACT called for hypotension SBP 60-70s, POD1 s/p ORIF. Pt awake, oriented x4, skin cool/pale, Bp 77/44, Hr Afib 90s, SpO2 100% on RA, placed in Trendelenburg position, denies cp/sob, labs drawn and EKG completed, Hgb 8.4, lac 1.5. Bp improved 90/50 after 500ml NS and 1u PRBC, MAP goal >60. Will remain on division with tele and SpO2 monitoring, Primary Care ACNP at bedside and assumed care. * Christofer Robison - 12/09/2023 3:07 AM CDT Order received from resident that next poct glucose can be performed at 0700. documented in this encounter ED Notes * Martha Trimble RN - 12/08/2023 9:48 PM CDT Bed: ED4- Expected date: Expected time: Means of arrival: Comments: 1- Martha Trimble RN 12/08/232147 * Moni Mcmanus RN - 12/08/2023 6:15 PM CDT Bed: ED1-02 Expected date: Expected time: Means of arrival: Comments: 3R Moni Mcmanus RN 12/08/23 1815 * Steve Huber MD - 12/08/2023 12:32 PM CDT HPI Chief Complaint Patient presents with Fall HPI Patient is a very pleasant uncomfortable appearing 83-year-old female presenting to emergency department via EMS with complaints of left hip pain she states that prior to arrival she was caring a cake that she was intending to bring to a when she went up the last step in her house and tripped, falling on her left hip. She denies hitting her head, denies any head pain back pain, neck pain,chest pain, abdominal pain. She does describe some mild soreness of her left shoulder however denies any limitations in range of motion, numbness, weakness, nausea or vomiting. She does have history of hyperlipidemia, hemiparesis affecting the left side consistent with baseline and does use a cane. She has history of diabetes hypertension and a artificial left knee. He is currently anticoagulated with Eliquis for atrial fibrillation. Patient History: Patient Active Problem List Diagnosis Date Noted Discharge planning issues 12/09/2023 Encounter for medication review 12/09/2023 Closed displaced fracture of left femoral neck ([facility]) 12/08/2023 Closed nondisplaced intertrochanteric fracture of left femur ([facility]) ([facility]) 12/08/2023 Hyperlipidemia 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 ([facility]) ([facility]) 10/11/2021 Essential tremor History of nephrolithiasis 03/21/2021 Pica in adults 08/21/2020 Thyroid nodule 08/21/2020 Moderate episode of recurrent major depressive disorder ([facility]) 08/21/2020 AYAD on CPAP 08/21/2020 Gastro-esophageal reflux disease without esophagitis 06/05/2019 WAI (generalized anxiety disorder) 06/05/2019 Slow transit constipation 06/05/2019 Acquired hypothyroidism 05/31/2019 Type 2 diabetes mellitus without complications ([facility]) ([facility]) 05/31/2019 Essential hypertension 05/31/2019 Presence of left artificial knee joint 05/25/2019 Paroxysmal atrial fibrillation ([facility]) ([facility]) 08/18/2017 Past Medical History: Diagnosis Date Adrenal nodule ([facility]) Anxiety Aortic stenosis, moderate Cardiomyopathy ([facility]) Diabetes mellitus ([facility]) GERD (gastroesophageal reflux disease) Heart murmur HFrEF (heart failure with reduced ejection fraction) ([facility]) ([facility]) Hyperlipidemia Hypothyroidism Insomnia Mitral regurgitation NSTEMI (non-ST elevated myocardial infarction) ([facility]) ([facility]) Obesity AYAD on CPAP Patellar sleeve fracture of left knee PONV (postoperative nausea and vomiting) Pulmonary embolism ([facility]) Sleep apnea Zenker's diverticulum Past Surgical History: Procedure Laterality Date BREAST LUMPECTOMY CHOLECYSTECTOMY HAND SURGERY Left plate & screws HYSTERECTOMY INCISION AND DRAINAGE FEMUR Left 05/22/2019 KIDNEY STONE SURGERY Family History Problem Relation Age of Onset Sudden Cardiac Mother Family history of sudden cardiac - (Added by Conv) Heart failure Mother Family history of heart failure - (Added by Conv) Heart disease Mother Heart attack Father Family history of heart attack - (Added by Conv) Diabetes Father Family history of diabetes mellitus - (Added by Conv) Hypertension Father Family hx of hypertension - (Added by Conv) Heart disease Father Diabetes Son Family history of diabetes mellitus - (Added by TW Conv) Anesthesia problems Neg Hx Social History Tobacco Use Smoking status: Never Smokeless tobacco: Never Vaping Use Vaping status: Never Used Substance and Sexual Activity Alcohol use: Yes Comment: 1/mo Drug use: Never Sexual activity: Defer Social History Social History Narrative Feels safe at home Review of Systems Review of Systems Physical Exam ED Triage Vitals Temp Pulse Resp BP SpO2 12/08/23 1130 12/08/23 1130 12/08/23 1130 12/08/23 1130 12/08/23 1130 37.1 ??C (98.7 ??F) 90 18 155/91 94 % Temp src Heart Rate Source Patient Position BP Location FiO2 (%) 12/08/23 1130 12/08/23 1130 -- 12/09/23 0024 -- Oral Monitor Left arm Height Height Method Weight Weight Method 12/08/23 2255 -- 12/08/23 1130 -- 1.575 m (5' 2.01 ) 84.8 kg (186 lb 15.2 oz) Physical Exam Vitals and nursing note reviewed. Constitutional: General: She is in acute distress. Appearance: Normal appearance. She is obese. She is not ill-appearing, toxic- appearing or diaphoretic. HENT: Head: Normocephalic and atraumatic. Mouth/Throat: Mouth: Mucous membranes are moist. Pharynx: Oropharynx is clear. Eyes: Pupils: Pupils are equal, round, and reactive to light. Cardiovascular: Rate and Rhythm: Normal rate. Pulses: Normal pulses. Pulmonary: Effort: Pulmonary effort is normal. Breath sounds: Normal breath sounds. Abdominal: General: Abdomen is flat. Bowel sounds are normal. There is no distension. Palpations: Abdomen is soft. Tenderness: There is no abdominal tenderness. There is no guarding. Musculoskeletal: General: Tenderness, deformity and signs of injury present. Cervical back: Normal range of motion. No rigidity or tenderness. Comments: There is external rotation, shortening of the left lower extremity at the hip. There is significant tenderness to palpation of the left hip, proximal femur. The patient is in a position of comfort lying on the left side. There is adequate sensation, pulses and motor function of the foot and ankle symmetrical to the contralateral side. There is full range of motion about the left shoulder, left elbow. Sensation, pulses are intact in the bilateral upper extremities. There is no tenderness to palpation of the cervical, thoracic, lumbar spine. Neurological: General: No focal deficit present. Mental Status: She is alert and oriented to person, place, and time. Mental status is at baseline. Cranial Nerves: No cranial nerve deficit. Sensory: No sensory deficit. Motor: No weakness. Psychiatric: Mood and Affect: Mood normal. Behavior: Behavior normal. Thought Content: Thought content normal. Judgment: Judgment normal. MDM Patient is a very pleasant young uncomfortable appearing 81-year-old female with history atrial fibrillation currently on Eliquis presenting with left hip pain after a fall. High suspicion for left hip fracture given physical exam and mechanism of injury. I considered however have no clinical findings to support intracranial injury spinal injury torso or abdominal injury. She is neurovascularly intact in the affected limb. X-rays were performed of the pelvis, hip, femur. There is evidence of a left hip fracture. Patient was given IV ketamine 10 mg with mild improvement of symptoms however they are persist discomfort. She will be given it if additional fentanyl intravenously for comfort. Labs demonstrate elevated PT is 17.1 minimally elevated INR of 1.57. CBC shows mild anemia, PTT, CMP, glucose are unremarkable. Type and screen is performed in anticipation operative repair. At 2:30 p.m., case is discussed with the orthopedic team. They have reviewed the images, findings only intertrochanteric proximal left femur fracture. Plan for hospitalization to geriatric trauma surgery team. They were notified and are awaiting orthopedic recommendations. Orthopedic team will coordinate a regional block if appropriate. XR Results: CHEST: Single frontal view the chest is submitted with comparison 08/07/2023. No significant change accounting for differences in technique. No pneumonic consolidation. Suggestion of bibasilar atelectasis. Calcified pulmonary nodules in keeping with old granulomatous disease. No pulmonary edema. No pneumothorax or pleural effusion. Heart size is unchanged. The aorta is tortuous. Vascular calcifications are seen. PELVIS: A single frontal view the pelvis is submitted with no recent comparison available. There is a incompletely evaluated fracture of the intertrochanteric proximal left femur. There are multiple phleboliths in the pelvis. Mild degenerative changes are seen in the hips. Degenerative changes seen in the spine. LEFT FEMUR: There is an extra articular displaced intertrochanteric fracture of the proximal left femur with suggestion of comminution. Left knee arthroplasty changes are noted without evidence of periprosthetic fracture on provided images. IMPRESSION: 1. Displaced extra articular intertrochanteric fracture of the proximal left femur with suggestion of comminution. 2. No acute findings on chest radiograph. Electronically signed by: Shelton Fagan M.D., Ph.D EXAMINATION: XR SHOULDER LEFT 2 OR MORE VIEWS HISTORY: Fall COMPARISON: None available FINDINGS: A 2 view examination of the left shoulder is provided. There is incomplete evaluation of the glenohumeral and acromioclavicular joints. No fractures identified. IMPRESSION: 1. No fracture identified. 2. Incomplete views of the glenohumeral and acromioclavicular joints. Electronically signed by: Shelton Fagan M.D., Ph.D EXAMINATION: XR HIP LEFT 2 OR 3 VIEWS HISTORY: Fall. Left hip pain COMPARISON: None available FINDINGS: A 2 view examination left hip is submitted. Redemonstrated is a intertrochanteric proximal left femur fracture without intra-articular extension with suggestion of mild comminution. Partially visualized left knee arthroplasty change. IMPRESSION: Intertrochanteric extra-articular proximal left femur fracture is suggestion of mild comminution. Electronically signed by: Shelton Fagan M.D., Ph.D NIH Score Medical Decision Making Amount and/or Complexity of Data Reviewed Labs: ordered. Radiology: ordered. Decision-making details documented in ED Course. Risk OTC drugs. Prescription drug management. Decision regarding hospitalization. ED Course as of 12/09/23 0746 Time: 12/07 1124 Comment: ED attending-Cecile. 83 female history of AYAD, hypertension, ED, AFib. Mechanical fall walking on grass carrying a cake to a when she slipped fell on her left has left hip and left shoulder pain. Did not hit head no LOC. per EMS given some intranasal fentanyl 50 mics for pain patient laying on her left side hip flexed knees bent not wanting to straighten out. No complaint of chest pain, headache, shortness of breath or palpitations prior to the fall. No prior hip fracture on that side. Primary concern is left hip fracture possible shoulder injury she is moving the the left shoulder using the arm side if less concern for fracture there. Will not straight legs. Plan is IV some additional pain meds and slowly turn rotator drawer more neutral position for x-rays By: Steve Huber MD Time: 12/07 1215 Comment: Patient is over an x-ray. Went over to Radiology to help straighten out her leg sick to get echo images after her pain meds. She has left surgical neck fracture. Will need to notify ortho and trauma. By: Steve Huber MD Time: 12/07 1346 Value: XR Femur Left 2 or More Views Comment: IMPRESSION: 1. Displaced extra articular intertrochanteric fracture of the proximal left femur with suggestion of comminution. By: Dick Nova MD Time: 12/07 1401 Comment: Received pt in s/o. 83yof presented as fall on grass, landed on L side, c/o pain to L hip and shoulder, suspected L femoral neck fx on pelvis film, call out to ortho and GTS, will admit. By: Dick Nova MD Time: 12/07 1438 Comment: Discussed FICB with ortho, they are planning for traction view film and would like to discuss with attending to confirm. Pt is on Eliquis but this may only be a relative contraindication--can discuss with pt if receive the green light from Ortho. By: Dick Nova MD Time: 12/07 9884 Comment: Pt reevaluated after signout. Found resting comfortably in bed, states pain is controlled,denies any complaints. Pending ortho recs By: Whitney Lovelace MD Time: 12/07 1708 Comment: Ortho consulted anesthesia. Recommend against fascia iliaca block due to anticoagulation By: Whitney Lovelace MD Time: 12/07 2921 Comment: Touched base with [facility]. They have not yet staffed the pt. By: Whitney Lovelace MD Time: 12/07 1838 Comment: Teach LOTTIE: 83 y/o female afib on eliquis. Left hip fx. Ortho said no to block because she is on anticoagulation. Anticipate admit to [facility]. Pending [facility] acceptance. By: Joseph Ashley MD Time: 12/07 1906 Comment: Ordered additional XRs and CT per ortho for preop planning By: Whitney Lovelace MD Time: 12/08 2219 Comment: Pt requesting pain meds - placed order. Notified by RN of BP 160/110, feel likely related to pain. Will give pain meds By: Whitney Lovelace MD Final diagnoses: Closed displaced fracture of left femoral neck (HCC) Contusion of left shoulder, initial encounter Fall, initial encounter Fall from standing, initial encounter Chronic heart failure with reduced ejection fraction and diastolic dysfunction (CMS/HCC) (HCC) Primary hypertension Obstructive sleep apnea on CPAP History of CAD (coronary artery disease) History of diabetes mellitus I have seen and examined the patient on 12/08/2023. I agree with the findings and plan of care as documented in the resident's note. Andre Willson MD 12/08/23 7790 Steve Huber MD 12/08/23 0765 Steve Huber MD 12/09/23 9384 * Юлия Gale RN - 12/08/2023 11:20 AM CDT Pt arrives here after a fall at home ground level outside in grass after missing a step around 1000. 50mcg fentynal given at 1030. BS 96. Arrives 10/23 Left hip pain and shortened. - LOC. -HS. +BT. Son at bedside. PMH: Sleep apnea, DM. VSS. GCS 15. * Suzie Mckeon RN - 12/08/2023 11:19 AM CDT Bed: [facility] Expected date: Expected time: Means of arrival: Comments: Medic 5 Suzie Mckeon RN 12/08/23 1119 documented in this encounter Miscellaneous Notes * Plan of Care - Molly Gerber RN - 12/16/2023 8:36 AM CDT IM letter completed with patient at bedside. Patient was informed of the planned discharge date, the date the beneficiary's financial liability begins, the beneficiary's appeal rights, and how and when to initiate an appeal. Patient was provided a copy of the IM letter and IM letter was placed in unit???s designated medical record bin to be uploaded into the patient???s chart. * ECIN Note - Molly Gerber RN - 12/15/2023 2:04 PM CDT Patient Information: OT Eval and Treat Last Documented OT ASSESSMENT FLOWSHEET LAST DOCUMENTED (most recent) OT Evaluation - 12/15/23 1100 Cognition Orientation Oriented X4 (person, place, time, situation) OT TREATMENT FLOWSHEET LAST DOCUMENTED (most recent) OT Treatment - 12/15/23 1100 Cognition Orientation Oriented X4 (person, place, time, situation) OT Notes 12/14/2023 12:20 PM Progress Notes signed by Geovanna Villalta, OT , PT Eval and Treat Last Documented OT ASSESSMENT FLOWSHEET LAST DOCUMENTED (most recent) PT Evaluation - 12/15/23 1100 Cognition Orientation Oriented X4 (person, place, time, situation) PT TREATMENT (most recent) PT Treatment - 12/15/23 1100 Cognition Orientation Oriented X4 (person, place, time, situation) PT Notes 12/15/2023 11:56 AM Progress Notes signed by Natalia Robbins, PT * Plan of Care - Ingrid Win, ARMANI - 12/15/2023 11:34 AM CDT 12/09/23 1331 Discharge Planning Support System Family members (Elio Culp (Son) [phone]) Anticipated discharge level of care residential facility (short term care) Does the patient need discharge transport arranged? 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. CM let VM x 2for Aydee in admissions [phone] to check bed availability, accepting MD information - awaitingcall back as of this time. Discharge Barriers: pending bed availability, insurance authorization Education Needs Identified (plan):TBD F/U Appointments: to be scheduled prior to discharge Addendum as of 1307 - CM left another VM for community coordinator Aydee [phone] - awaiting call back as of this time Addendum as of 1413 - SUJEY received information from Aydee in admissions - Summer Osei , MD Yves Bailey . Insurance auth pending Patient's Identified Problem/Goal Problem:?Ensure acute medical needs are met and that patient has a safe discharge plan. Goal:?Secure a discharge plan that patient/family are agreeable with?and ensure patient has continuum of care. Patient and/or family are agreeable with plan. manager transplant will continue to follow and assist with discharge planning as needed. If any further discharge needs arise, please contact the covering manager case management. * Assessment & Plan Note - Parris Soto NP - 12/15/2023 11:12 AM CDT Associated Problem(s): Hyponatremia 12/14 Na 128, started PO tablets 12/15 Na 129 - Recheck BMP at in 1 week * Provider Query - Emy Sanchez NP - 12/15/2023 8:53 AM CDT Specify the condition you are evaluating, treating or monitoring and document in the medical recordand the form below. ___x_ Acute blood loss anemia ____ Precipitous drop in Hemoglobin or Hematocrit ____ Other explanation of clinical findings, specify below Additional Provider Response: Clinical Indicators/Treatments: Documentation and lab results include 12/07 Hgb 11.3 12/[address] Ashanti Zamudio: EBL 150 ml 12/09 Hgb 8.4 12/09 Dr. Lucien Christina: Hypotension Informed that EBL from procedure of 400 mL Tx includes: PRBC transfusion and con't to monitor CBC References: Acute Blood Loss Anemia Screening Criteria Anemia Anemia is measured using the following hemoglobin levels by The WHO for persons living in the [place]: Men <13.5 g/dL Women <12.5 g/dL Acute Blood Loss Anemia Blood loss anemia is anemia due to loss of blood (enough blood to become anemic per above measurements or more anemic for patients with preexisting chronic anemia) Causes may include surgery, trauma, or GI bleeding Some patients are anemic to start with and become more anemic. To determine how much of a drop in Hgb/Hct is significant enough to warrant a diagnosis of blood loss anemia, consider the following criteria: Transfusion given Development of symptoms of anemia not previously present Drop in Hgb of 1.0-2.0 gm/dl and/or Hct 3-6% (smaller drop is more significant with a lower baseline.) >25% drop of Hgb from baseline Important Concepts Blood transfusion is not required to substantiate the diagnosis of acute blood loss anemia, but if a transfusion is necessary, acute blood loss anemia is almost certainly present and should be documented. Even if the amount of blood lost following surgery is expected and routinely associated with the procedure, acute blood loss anemia is still present if anemia occurs and warrants monitoring, evaluation, treatment, increased RN care, or extends the length of stay. Acute blood loss anemia is not classified as a complication, unlike ???postop hemorrhage?? or ???hemorrhage due to surgery.?? Failure to document acute blood loss anemia, when appropriate, may harmquality scores because severity of illness will not be adequately recorded If provider believes patient has Acute Blood Loss Anemia in the absence of above clinical indicators, please document rationale and clinical impression in detail. Acute Blood Loss Anemia References WHO. Haemoglobin concentrations for the diagnosis of anaemia and assessment of severity. Vitamin and Mineral Nutrition Information System. [place], World Health Organization, 2010 (WHO/NMH/NHD/MNM/11.1) http://www.who.int/vmnis/indicators/haemoglobin.pdf https://acphospitalist.org/archives//coding.htm https://acphospitalist.org/archives//hgagbh-hzhot-rqrk-anemia.htmhttps:// acphospitalist.org/archives//uhvkfq-nxblp-kqyb-anemia.htm From the ICD-10-CM Coding Guidelines, use of terms such as likely, suspected, possible, or probable(associated with a specific diagnosis that is being evaluated, monitored, or treated as if it exists) are acceptable and can be coded in the inpatient setting when documented at the time of discharge. This documentation will become part of the patient???s medical record. Regards, Jennifer Lehman RN, CCDS Clinical Documentation Family Sociologist [phone] [email or web address] * Provider Query - Emy Sanchez NP - 12/15/2023 8:52 AM CDT Specify the significance of the abnormal BMI (body mass index) and document in the medical record and on the form below. Elevated BMI _x__Obesity BMI 34 ___Other, specify below Additional Provider Response: Clinical Indicators/Treatments: Documentation includes BMI 34.18 12/08 Taylor Sanchez NP: HTN DM2 Acquired hypothyroidism 12/09 Dr. Lucien Christina: heart failure Tx includes: restricted, consistent carbohydrate diet and con't to monitor and tx co-morbid conditions References: From the ICD-10-CM Official Guidelines for Coding and Reporting, use of terms such as likely, suspected, possible, or probable (associated with a specific diagnosis that is being evaluated, monitored, or treated as if it exists) are acceptable and can be coded in the inpatient setting when documented at the time of discharge. BMI definitions per www.NHLBI.nih.gov BMI Weight Status <18.5 Underweight 18.5 to 24.9 Normal/Healthy 25 to 29.9 Overweight 30 to 39.9 Obesity >40 Extreme Obesity (Morbid) This documentation will become part of the patient???s medical record. Regards, Jennifer Lehman RN, CCDS Clinical Documentation Family Sociologist [phone] [email or web address] * Plan of Care - Dariana Washington RN - 12/14/2023 1:20 PM CDT Goals: Clinical Goals for the Shift: Monitor VS, monitor I&Os, pain management, Q2 turns, out of bed to chair Health Care Law Specialist Patient Centered Goal for Treatment: discharge Problem: Lack of Knowledge Goal: Ability to develop a pain control plan will improve Outcome: Progressing Flowsheets (Taken 12/14/2023 1319) Ability to develop a pain control plan will improve: Teach information regarding pain management Educate pain scale for assessing level of pain Teach notification to healthcare provider of episodes of pain Explain causes of pain and how long pain can be expected to last Problem: Medication Goal: Satisfaction with pain management medication regimen will improve Outcome: Progressing Flowsheets (Taken 12/14/2023 1319) Satisfaction with pain management medication regimen will improve: Report inadequate pain control to healthcare provider Problem: Sensory Goal: Ability to identify factors that increase pain levels will improve while working to decrease the patient's pain levels Outcome: Progressing Flowsheets (Taken 12/14/2023 1319) Ability to identify factors that increase pain levels will improve while working to decrease patients pain levels: Assess pain status Problem: Coping Goal: Ability to cope will improve Outcome: Progressing Problem: Health Behavior Goal: Identification of resources available to assist in meeting health care needs will improve Outcome: Progressing Problem: Discharge Planning Goal: Understanding discharge needs will improve Outcome: Progressing Problem: Fall Risk Goal: Ability to state ways to decrease the risk of falls will improve Outcome: Progressing Goal: Will remain free from falls Outcome: Progressing Goal: Will remain free from injury from falls Outcome: Progressing Problem: Skin Integrity Impairment Risk Goal: Mobility will improve Outcome: Progressing Goal: Understanding of ways to prevent future skin breakdown will improve Outcome: Progressing Goal: Nutritional status will improve Outcome: Progressing Goal: Risk for impaired skin integrity will decrease Outcome: Progressing Summary: Patient vitals stable. Offered pain medications as needed. Out of bed to chair with therapy. Patient having some nausea and complaining of constipation. Given scheduled meds and additional meds to alleviate constipation. * Plan of Care - Ingrid Win RN - 12/14/2023 12:00 PM CDT 12/09/23 1331 Discharge Planning Support System Family members (Elio Culp (Son) [phone]) Anticipated discharge level of care residential facility (short term care) Does the patient need discharge transport arranged? 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 Water Attendant met with the patient/family at bedside to discuss recommendations by therapy and to work on a potential discharge disposition plan, patient/family interested in SNF placement as of this time. manager transplant provided a list of SNF choices to patient and family. Patient and family selected the following choices (preference order): [facility], [facility], [facility], [facility] Electronic referrals sent out via [employer]. Awaiting responses as of this time. Discharge Barriers: left sided weakness improving, Hgb stable 8.1, A fib well controlled HR 90s, removed Lucio- void check Education Needs Identified (plan):TBD F/U Appointments: to be scheduled prior to discharge Patient's Identified Problem/Goal Problem:?Ensure acute medical needs are met and that patient has a safe discharge plan. Goal:?Secure a discharge plan that patient/family are agreeable with?and ensure patient has continuum of care. Patient and/or family are agreeable with plan. manager transplant will continue to follow and assist with discharge planning as needed. If any further discharge needs arise, please contact the covering manager case management. * [facility] Note - Ingrid Win RN - 12/14/2023 11:56 AM CDT Images from the original note were not included. Patient Information: Head to Toe Assess Default Flowsheet Data (most recent) Complex Assessment - 12/14/23 1105 Wound 12/09/23 Incision Thigh Left;Lateral Wound Properties Date First Assessed: 12/09/23 Time First Assessed: 1708 Present on Original Admission: N Primary Wound Type: Incision Location: Thigh Location Orientation: Left;Lateral Urine Assessment Urine Color Crissy Urine Appearance Clear Urine Odor No odor , Meds and Admin Active Only All Meds/Most Recent Administrations ondansetron (ZOFRAN) injection 4 mg [[id number]] Ordering Provider: Andre Willson MD Status: Dispensed (Past End Date/Time) Ordered On: 12/08/23 1131 Starts/Ends: 12/08/23 1132 - 12/09/23 1132 Ordered Dose (Remaining/Total): 4 mg (1/1) Route: intravenous Frequency: Once Ordered Rate/Order Duration: -- / 2 Minutes (No admins scheduled or recorded for this medication) ketamine (KETALAR) injection 10 mg [[id number]] Ordering Provider: Steve Huber MD Status: Completed (Past End Date/Time) Ordered On: 12/08/23 1140 Starts/Ends: 12/08/23 114 - 12/08/23 1145 Ordered Dose (Remaining/Total): 10 mg (0/1) Route: intravenous Frequency: Once Ordered Rate/Order Duration: -- / 2 Minutes Line Med Link Info Comment Peripheral IV 12/08/23 18 G Anterior;Left;Proximal Forearm 12/08/23 1143 by Юлия Gale RN -- Timestamps Action Dose / Duration Route Other Information 12/08/23 114 Given 10 mg 2 Minutes intravenous Performed by: Юлия Gale RN Scanned Package: 73715-622-79 fentaNYL (SUBLIMAZE) preservative free injection 50 mcg [[id number]] Ordering Provider: Steve Huber MD Status: Completed (Past End Date/Time) Ordered On: 12/08/231148 Starts/Ends: 12/08/231148 - 12/08/231948 Ordered Dose (Remaining/Total): 50 mcg (0/3) Route: intravenous Frequency: Every 1 hour PRN Ordered Rate/Order Duration: -- / -- Line Med Link Info Comment Peripheral IV 12/08/23 18 G Anterior;Left;Proximal Forearm 12/08/23 1315 by Юлия Gale RN -- Timestamps Action Dose Route Other Information 12/08/231948 Given 50 mcg intravenous Performed by: Priscilla Avalos RN Scanned Package: 7057-6188-53 HYDROmorphone (DILAUDID) injection 0.5 mg [[id number]] Ordering Provider: Dick Nova MD Status: Completed (Past End Date/Time) Ordered On: 12/08/23 143 Starts/Ends: 12/08/23 143 - 12/08/23 143 Ordered Dose (Remaining/Total): 0.5 mg (0/1) Route: intravenous Frequency: Once Ordered Rate/Order Duration: -- / 2 Minutes Line Med Link Info Comment Peripheral IV 12/08/23 18 G Anterior;Left;Proximal Forearm 12/08/23 143 by Юлия Gale RN -- Timestamps Action Dose / Duration Route Other Information 12/08/231431 Given 0.5 mg 2 Minutes intravenous Performed by: Юлия Gale RN Scanned Package: 9124-1617-28 lidocaine (ASPERCREME) 4 % patch 1 patch [[id number]] Ordering Provider: Sukhjinder Cao MD Status: Dispensed Ordered On: 12/08/231824 Start: 12/08/231825 Ordered Dose (Remaining/Total): 1 patch (--/--) Route: transdermal Frequency: Every 24 hours Ordered Rate/Order Duration: -- / 12 Hours Question Answer Comment Apply to affected area:: back -- Timestamps Action Dose / Duration Route / Site Other Information 12/13/231811 Medication Applied 1 patch 12 Hours transdermal Other (Comment) Performed by: Anh Savage RN Scanned Package: [id number] ALPRAZolam (XANAX) tablet 0.5 mg [[id number]] Ordering Provider: Noel Islas MD Status: Dispensed Ordered On: 12/08/232249 Start: 12/08/232249 Ordered Dose (Remaining/Total): 0.5 mg (--/--) Route: oral Frequency: 2 times daily PRN Ordered Rate/Order Duration: -- / -- Timestamps Action Dose Route Other Information 12/13/232048 Given 0.5 mg oral Performed by: Alfredo Lind RN Scanned Package: 31746-219-89 FLUoxetine (PROzac) capsule 20 mg [[id number]] Ordering Provider: Emy Sanchez NP Status: Dispensed Ordered On: 12/08/232249 Start: 12/09/23899 Ordered Dose (Remaining/Total): 20 mg (--/--) Route: oral Frequency: Daily Ordered Rate/Order Duration: -- / -- Timestamps Action Dose Route Other Information 12/14/23 0817 Given 20 mg oral Performed by: Dariana Washington RN Scanned Package: 76450-902-08, 64850-215-98 levothyroxine (SYNTHROID) tablet 50 mcg [[id number]] Ordering Provider: Noel Islas MD Status: Dispensed Ordered On: 12/08/232249 Start: 12/09/23899 Ordered Dose (Remaining/Total): 50 mcg (--/--) Route: oral Frequency: Daily Ordered Rate/Order Duration: -- / -- Admin Instructions: Administer on an empty stomach, preferably 30 minutes before breakfast. Take 4 hours apart from antacids, iron and calcium products. Separate from tube feeds, if applicable. Timestamps Action Dose Route Other Information 12/14/23 0817 Given 50 mcg oral Performed by: Dariana Washington RN Scanned Package: 17801-195-93 rosuvastatin (CRESTOR) tablet 20 mg [[id number]] Ordering Provider: Noel Islas MD Status: Dispensed Ordered On: 12/08/232249 Start: 12/09/23899 Ordered Dose (Remaining/Total): 20 mg (--/--) Route: oral Frequency: Daily Ordered Rate/Order Duration: -- / -- Timestamps Action Dose Route Other Information 12/14/23816 Given 20 mg oral Performed by: Dariana Washington RN Scanned Package: 54835-295-55 acetaminophen (TYLENOL) tablet 1,000 mg [[id number]] Ordering Provider: Noel Islas MD Status: Dispensed Ordered On: 12/08/232249 Start: 12/08/232329 Ordered Dose (Remaining/Total): 1,000 mg (--/--) Route: oral Frequency: Every 6 hours Ordered Rate/Order Duration: -- / -- Timestamps Action Dose Route Other Information 12/14/23 1154 Given 1,000 mg oral Performed by: Dariana Washington RN Scanned Package: [id number], 4153-3905-59 oxyCODONE (ROXICODONE) tablet 5 mg [[id number]] Ordering Provider: Noel Islas MD Status: Dispensed Ordered On: 12/08/232249 Start: 12/08/232249 Ordered Dose (Remaining/Total): 5 mg (--/--) Route: oral Frequency: Every 4 hours PRN Ordered Rate/Order Duration: -- / -- Timestamps Action Dose Route Other Information 12/14/23 0608 Given 5 mg oral Performed by: Alfredo Lind RN Scanned Package: 51641-290-16 polyethylene glycol (MIRALAX) packet 17 g [[id number]] Ordering Provider: Noel Islas MD Status: Dispensed Ordered On: 12/08/232249 Start: 12/09/23899 Ordered Dose (Remaining/Total): 17 g (--/--) Route: oral Frequency: Daily Ordered Rate/Order Duration: -- / -- Timestamps Action Dose Route Other Information 12/14/23817 Given 17 g oral Performed by: Dariana Washington RN Scanned Package: 37675-380-19 senna (SENOKOT) tablet 1 tablet [[id number]] Ordering Provider: Noel Islas MD Status: Dispensed Ordered On: 12/08/232249 Start: 12/08/232249 Ordered Dose (Remaining/Total): 1 tablet (--/--) Route: oral Frequency: Daily PRN Ordered Rate/Order Duration: -- / -- Timestamps Action Dose Route Other Information 12/14/23824 Given 1 tablet oral Performed by: Dariana Washington RN Scanned Package: 4420-9797-04 dextrose gel in packet 15 g [[id number]] Ordering Provider: Emy Sanchez NP Status: Verified Ordered On: 12/09/23830 Start: 12/09/23830 Ordered Dose (Remaining/Total): 15 g (--/--) Route: oral Frequency: Every 15 min PRN Ordered Rate/Order Duration: -- / -- Admin Instructions: If patient is alert and able to eat/drink, give 15 gm glucose or one juice (4 fluid ounces) NOT ORANGE JUICE. After treatment for hypoglycemia, recheck BG followed by treatment every 15 minutes until the BG is greater than 100 mg/dL. Then check BG 1 hour post-treatment. If BG isless than 100 mg/dL, repeat Q15 minute BG checks and treatment. Call MD for each episode of hypoglycemia. (No admins scheduled or recorded for this medication) dextrose (D10W) 10% bolus 250 mL [[id number]] Ordering Provider: Emy Sanchez NP Status: Verified Ordered On: 12/09/23830 Start: 12/09/23830 Ordered Dose (Remaining/Total): 250 mL (--/--) Route: intravenous Frequency: Every 15 min PRN Ordered Rate/Order Duration: 1,000 mL/hr / 15 Minutes Admin Instructions: After treatment for hypoglycemia, recheck BG followed by treatment every 15 minutes until the BG is greater than 100 mg/dL. Then check BG 1 hour post treatment. If BG is less sauz700 mg/dL, repeat Q15 minute BG checks and treatment. Call MD for each episode of hypoglycemia. (No admins scheduled or recorded for this medication) glucagon injection 1 mg [[id number]] Ordering Provider: Emy Sanchez NP Status: Verified Ordered On: 12/09/23830 Start: 12/09/23830 Ordered Dose (Remaining/Total): 1 mg (--/--) Route: intramuscular Frequency: Every 30 min PRN Ordered Rate/Order Duration: -- / -- Admin Instructions: After Glucagon is administered, position patient on side if possible to avoid aspiration. Obtain IV access. Follow glucagon treatment with glucose treatment or IV dextrose. After treatment for hypoglycemia, recheck BG followed by treatment every 15 minutes until the BG isgreater than 100 mg/dL. Then check BG 1 hour post treatment. If BG is less than 100 mg/dL, repeat Q15 minute BG checks and treatment. Call MD for each episode of hypoglycemia. Reconstitute 1 mg vial with 1 mL SWFI. Use immediately following reconstitution. (No admins scheduled or recorded for this medication) insulin lispro (HumaLOG, ADMELOG) 100 unit/mL injection 0-10 Units [[id number]] Ordering Provider: Emy Sanchez NP Status: Dispensed Ordered On: 12/09/23832 Start: 12/09/23914 Ordered Dose (Remaining/Total): 0-10 Units (--/--) Route: subcutaneous Frequency: Every 4 hours scheduled Ordered Rate/Order Duration: -- / -- Admin Instructions: Blood glucose mg/dL: 149 or less: No insulin 150-199: add 2 unit 200-249: add 4 units 250-299: add 6 units 300-349: add 8 units and notify physician for adjustment of insulin orders. 350-399: add 10 units and notify physician for adjustment of insulin orders. Over 400: Notify physician for adjustment of insulin orders. Do NOT hold for NPO Status Timestamps Action Dose Route / Site Other Information 12/14/23 1154 Given 6 Units subcutaneous Left Lower Abdomen Performed by: Dariana Washington RN Scanned Package: [id number] ketorolac (TORADOL) 30 mg/mL injection 15 mg [[id number]] Ordering Provider: Jermaine Sanchez MD Status: Completed (Past End Date/Time) Ordered On: 12/09/231948 Starts/Ends: 12/09/232029 - 12/09/231955 Ordered Dose (Remaining/Total): 15 mg (0/1) Route: intravenous Frequency: Once Ordered Rate/Order Duration: -- / -- Admin Instructions: For Adult IV push, administer over 15 seconds Timestamps Action Dose Route Other Information 12/09/231955 Given 15 mg intravenous Performed by: Mahogany France RN Scanned Package: 32578-666-21 magnesium sulfate 4 g/100 mL in water (premix) 4 g [[id number]] Ordering Provider: Alia Ibarra MD Status: Completed (Past End Date/Time) Ordered On: 12/10/23 0007 Starts/Ends: 12/10/23 0045 - 12/10/23 0200 Ordered Dose (Remaining/Total): 4 g (0/1) Route: intravenous Frequency: Once Ordered Rate/Order Duration: -- / 90 Minutes Line Med Link Info Comment Peripheral IV 12/09/23 18 G Right Wrist 12/10/23 0030 by Jazmyn Santos RN -- Timestamps Action Dose / Duration Route Other Information 12/10/23 0030 New Bag 4 g 90 Minutes intravenous Performed by: Jazmyn Santos RN Scanned Package: 35817-428-50 enoxaparin (LOVENOX) syringe 30 mg [[id number]] Ordering Provider: Emy Sanchez NP Status: Dispensed Ordered On: 12/10/23 0844 Start: 12/10/23 0915 Ordered Dose (Remaining/Total): 30 mg (--/--) Route: subcutaneous Frequency: Every 12 hours scheduled Ordered Rate/Order Duration: -- / -- Timestamps Action Dose Route / Site Other Information 12/14/23 0817 Given 30 mg subcutaneous Left Upper Abdomen Performed by: Dariana Washington RN Scanned Package: 65010-498-89 sodium chloride 0.9% bolus 1,000 mL [[id number]] Ordering Provider: Emy Sanchez NP Status: Completed (Past End Date/Time) Ordered On: 12/10/23 1203 Starts/Ends: 12/10/23 1245 - 12/10/23 1210 Ordered Dose (Remaining/Total): 1,000 mL (0/1) Route: intravenous Frequency: Once Ordered Rate/Order Duration: -- / -- Timestamps Action Dose Route Other Information 12/10/23 1210 New Bag 1,000 mL intravenous Performed by: Daniela Arshad RN sodium chloride 0.9% IVPB 0-250 mL [[id number]] Ordering Provider: Emy Sanchez NP Status: Completed (Past End Date/Time) Ordered On: 12/10/23 1223 Starts/Ends: 12/10/23 1300 - 12/10/23 1304 Ordered Dose (Remaining/Total): 0-250 mL (0/1) Route: intravenous Frequency: Once Ordered Rate/Order Duration: -- / -- Admin Instructions: Prime blood tubing and administer amount needed to clear line (usually 50-100 mL) after transfusion complete. Timestamps Action Dose Route Other Information 12/10/23 1304 New Bag 150 mL intravenous Performed by: Daniela Arshad RN Scanned Package: [id number] methocarbamoL (ROBAXIN) tablet 500 mg [[id number]] Ordering Provider: Quita Abarca MD Status: Completed (Past End Date/Time) Ordered On: 12/10/231916 Starts/Ends: 12/10/231999 - 12/10/232123 Ordered Dose (Remaining/Total): 500 mg (0/1) Route: oral Frequency: Once Ordered Rate/Order Duration: -- / -- Timestamps Action Dose Route Other Information 12/10/232123 Given 500 mg oral Performed by: Carolyn Sullivan RN Comments: pt request Scanned Package: 81230-658-86 sodium chloride 0.9% bolus 500 mL [[id number]] Ordering Provider: Alia Ibarra MD Status: Completed (Past End Date/Time) Ordered On: 12/10/231937 Starts/Ends: 12/10/232014 - 12/10/232044 Ordered Dose (Remaining/Total): 500 mL (0/1) Route: intravenous Frequency: Once Ordered Rate/Order Duration: 500 mL/hr / 1 Hours Timestamps Action Dose / Rate / Duration Route Other Information 12/10/231944 New Bag 500 mL 250 mL/hr 1 Hours intravenous Performed by: Carolyn Sullivan RN Scanned Package: [id number] ondansetron (ZOFRAN) injection 4 mg [[id number]] Ordering Provider: Alia Ibarra MD Status: Dispensed Ordered On: 12/10/232332 Start: 12/10/232332 Ordered Dose (Remaining/Total): 4 mg (--/--) Route: intravenous Frequency: Every 4 hours PRN Ordered Rate/Order Duration: -- / 2 Minutes Line Med Link Info Comment Peripheral IV 12/08/23 18 G Anterior;Left;Proximal Forearm 12/12/23 0028 by Henrik Angeles RN -- Timestamps Action Dose / Duration Route Other Information 12/14/23 0309 Given 4 mg 2 Minutes intravenous Performed by: Aflredo Lind RN Scanned Package: 30627-067-38 perflutren protein-a (OPTISON) 3 mL in sodium chloride 0.9% 8 mL syringe [[id number]] Ordering Provider: Kevin Corrigan MD Status: Verified Ordered On: 12/11/23 0739 Start: 12/11/23 0739 Ordered Dose (Remaining/Total): 1-8 mL (1/1) Route: intravenous Frequency: Once in imaging Ordered Rate/Order Duration: -- / -- (No admins scheduled or recorded for this medication) perflutren protein-a (OPTISON) 3 mL in sodium chloride 0.9% 8 mL syringe [[id number]] Ordering Provider: Kevin Corrigan MD Status: Completed (Past End Date/Time) Ordered On: 12/11/23 0749 Starts/Ends: 12/11/23 0748 - 12/11/23 1010 Ordered Dose (Remaining/Total): 1-8 mL (01) Route: intravenous Frequency: Once in imaging Ordered Rate/Order Duration: -- / -- Timestamps Action Dose Route Other Information 12/11/23 1010 Given by Other 2.5 mL intravenous Performed by: Emile Gtz RDCS perflutren lipid (DEFINITY) 1.5 mL in sodium chloride 0.9% 10 mL syringe [[id number]] Ordering Provider: Kevin Corrigan MD Status: Verified Ordered On: 12/11/23 0749 Start: 12/11/23 0749 Ordered Dose (Remaining/Total): 1-10 mL (03/16) Route: intravenous Frequency: Once in imaging Ordered Rate/Order Duration: -- / -- (No admins scheduled or recorded for this medication) cholecalciferol (VITAMIN D-3) capsule 1,000 Units [[id number]] Ordering Provider: Parris Soto NP Status: Dispensed Ordered On: 12/11/23 1152 Start: 12/11/23 1230 Ordered Dose (Remaining/Total): 1,000 Units (--/--) Route: oral Frequency: Daily Ordered Rate/Order Duration: -- / -- Admin Instructions: Each capsule contains 1,000 units (25 mcg) of cholecalciferol. Timestamps Action Dose Route Other Information 12/14/23 0817 Given 1,000 Units oral Performed by: Dariana Washintgon RN Scanned Package: [id number] dextrose (D10W) 10% bolus 500 mL [[id number]] Ordering Provider: Parris Soto NP Status: Completed (Past End Date/Time) Ordered On: 12/12/23 0649 Starts/Ends: 12/12/23 0730 - 12/12/23 1126 Ordered Dose (Remaining/Total): 500 mL (0) Route: intravenous Frequency: Once Ordered Rate/Order Duration: 250 mL/hr / 2 Hours Admin Instructions: If blood glucose greater than 250 mg/dL, hold dextrose and contact provider. Initiate PRIOR to insulin. Timestamps Action Dose / Rate / Duration Route Other Information 12/12/23 0743 New Bag 500 mL 250 mL/hr 2 Hours intravenous Performed by: Clara Padilla RN Dual Signoff by: Eneida Kaiser RN Scanned Package: [id number] insulin regular (HumuLIN R, NovoLIN R) 100 unit/mL injection 4 Units [[id number]] Ordering Provider: Parris Soto NP Status: Completed (Past End Date/Time) Ordered On: 12/12/23 0649 Starts/Ends: 12/12/23 0730 - 12/12/23 0743 Ordered Dose (Remaining/Total): 0.05 Units/kg (0/1) Route: intravenous Frequency: Once Ordered Rate/Order Duration: -- / -- Admin Instructions: Administer AFTER dextrose infusion started. Dose = 0.05 units/kg; Maximum 5 units/dose. Timestamps Action Dose Route Other Information 12/12/23 0743 Given 4 Units intravenous Performed by: Clara Padilla RN Dual Signoff by: Eneida Kaiser RN Scanned Package: 0941-6146-67 carvediloL (COREG) tablet 25 mg [[id number]] Ordering Provider: Parris Soto NP Status: Dispensed Ordered On: 12/12/23 1241 Start: 12/12/23 1800 Ordered Dose (Remaining/Total): 25 mg (--/--) Route: oral Frequency: 2 times daily with meals (bkfst, dinner) Ordered Rate/Order Duration: -- / -- Timestamps Action Dose Route Other Information 12/14/23 0817 Given 25 mg oral Performed by: Dariana Washington RN Scanned Package: 3940-7619-89 carvediloL (COREG) tablet 12.5 mg [[id number]] Ordering Provider: Parris Soto NP Status: Completed (Past End Date/Time) Ordered On: 12/12/23 1241 Starts/Ends: 12/12/23 1315 - 12/12/23 1420 Ordered Dose (Remaining/Total): 12.5 mg (0/1) Route: oral Frequency: Once Ordered Rate/Order Duration: -- / -- Timestamps Action Dose Route Other Information 12/12/23 1420 Given 12.5 mg oral Performed by: Clara Padilla RN Scanned Package: 18298-332-42 calcium carbonate (TUMS) chewable tablet 500 mg [[id number]] Ordering Provider: Parris Soto NP Status: Dispensed Ordered On: 12/12/23 1241 Start: 12/12/23 1315 Ordered Dose (Remaining/Total): 200 mg of elemental calcium (--/--) Route: oral Frequency: 2 times daily Ordered Rate/Order Duration: -- / -- Timestamps Action Dose Route Other Information 12/14/23 0817 Given 500 mg oral Performed by: Dariana Washington RN Scanned Package: [id number] sodium chloride 0.9% IVPB 0-250 mL [[id number]] Ordering Provider: Alia Ibarra MD Status: Completed (Past End Date/Time) Ordered On: 12/13/23 042 Starts/Ends: 12/13/23 0500 - 12/13/23 0828 Ordered Dose (Remaining/Total): 0-250 mL (0/1) Route: intravenous Frequency: Once Ordered Rate/Order Duration: -- / -- Admin Instructions: Prime blood tubing and administer amount needed to clear line (usually 50-100 mL) after transfusion complete. Timestamps Action Dose Route Other Information 12/13/23 08 New Bag 250 mL intravenous Performed by: Anh Savage RN Scanned Package: [id number] sodium chloride 0.9% IVPB 0-250 mL [[id number]] Ordering Provider: Alia Ibarra MD Status: Completed (Past End Date/Time) Ordered On: 12/13/232144 Starts/Ends: 12/13/232229 - 12/13/23 232 Ordered Dose (Remaining/Total): 0-250 mL (0/1) Route: intravenous Frequency: Once Ordered Rate/Order Duration: -- / -- Admin Instructions: Prime blood tubing and administer amount needed to clear line (usually 50-100 mL) after transfusion complete. Timestamps Action Dose Route Other Information 12/13/23 232 New Bag 250 mL intravenous Performed by: Alfredo Lind RN Scanned Package: [id number] magnesium sulfate 2 g/50 mL in water (premix) 2 g [[id number]] Ordering Provider: Alia Ibarra MD Status: Completed (Past End Date/Time) Ordered On: 12/13/232204 Starts/Ends: 12/13/232244 - 12/13/23 234 Ordered Dose (Remaining/Total): 2 g (0/1) Route: intravenous Frequency: Once Ordered Rate/Order Duration: -- / 60 Minutes Timestamps Action Dose / Duration Route Other Information 12/13/232239 New Bag 2 g 60 Minutes intravenous Performed by: Alfredo Lind RN Scanned Package: [id number] bisacodyL (DULCOLAX) suppository 10 mg [[id number]] Ordering Provider: Parris Soto NP Status: Dispensed Ordered On: 12/14/23904 Starts/Ends: 12/14/23944 - 12/15/2345 Ordered Dose (Remaining/Total): 10 mg (1/) Route: rectal Frequency: Once Ordered Rate/Order Duration: -- / -- (No admins scheduled or recorded for this medication) magnesium citrate oral solution 296 mL [[id number]] Ordering Provider: Parris Soto NP Status: Completed (Past End Date/Time) Ordered On: 12/14/23904 Starts/Ends: 12/14/23944 - 12/14/23 1013 Ordered Dose (Remaining/Total): 296 mL (0/1) Route: oral Frequency: Once Ordered Rate/Order Duration: -- / -- Timestamps Action Dose Route Other Information 12/14/23 1013 Given 296 mL oral Performed by: Dariana Washington RN Scanned Package: [id number] , OT Eval and Treat Last 72 Hours OT Evaluation Row Name 12/14/23 0918 12/11/23 1150 12/10/23 1346 12/09/23 0710 Chart Reviewed Yes -ER Yes -ML -- -- Session Type Treatment -ER Evaluation -ML -- -- OT Received On -- 12/11/23 -ML -- -- Safe Environment -- Arm band checked;Patient found in supine;Session completed bedside;Gait belt utilized for all out of bed mobility -ML -- -- Subjective -- Agreeable to Therapy -ML -- -- OT Missed Visit Reason -- -- Change in medical status Medical cancel: code stroke called. OT will hold at this time -BB Procedure/testing/appointment Planned OR this date; OT to f/u post-op -BS Family/Caregiver Present -- Yes family arrived and left prior to mobility -ML -- -- Occupational Therapy-Patient Goal -- Pt agreeable to OT POC -ML -- -- Precautions -- Fall risk MAP >65 -ML -- -- Weight Bearing Restrictions -- Yes -ML -- -- LLE Weight Bearing -- WBAT -ML -- -- Precaution Comments -- reviewed precautions prior to mobility -ML -- -- Type of Home -- House -ML -- -- Home Layout -- One level;Basement Pt rarely goes down to the basement -ML -- -- Home Access -- Stairs to enter with rails -ML -- -- Entrance Stairs-Rails -- Both -ML -- -- Entrance Stairs-Number of Steps -- 5 -ML -- -- Bathroom Shower/Tub -- Tub/shower unit -ML -- -- Bathroom Toilet -- Standard -ML -- -- Bathroom Equipment -- Shower chair;Grab bars in shower/tub -ML -- -- Bathroom Accessibility -- Accessible via walker -ML -- -- Home Mobility Equipment-Available -- Wheeled walker;Single point cane - -- -- Home Mobility Equipment-Currently Using -- None -ML -- -- Home ADL Equipment-Available -- Motor Vehicles Supervisor -ML -- -- Home ADL Equipment-Currently Using -- None -ML -- -- Level of [place] -- Independent with ADLs;Independent functional transfers;Independent with ambulation;Independent with homemaking with ambulation -ML -- -- Lives With -- Alone -ML -- -- Receives Help From -- Family;Neighbor son 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 -ML -- -- Fall within the last 6 months -- Yes -ML -- -- Fall within the last 6 months comment -- 1 fall leading to current admission -ML -- -- ADLS (WDL) -- X -ML -- -- Grooming: Where assessed -- Chair -ML -- -- Grooming: Level of assistance -- Maximum Assist -ML -- -- Grooming: Assistance with -- Increased time to complete;Manipulation of containers decreased L handcoordination and functional strength -ML -- -- LE Dressing: Where assessed -- Chair -ML -- -- LE Dressing: Level of assistance -- Dependent -ML -- -- LE Dressing: Assistance with -- -- -ML -- -- Room Mobility comment -- NT -ML -- -- Toilet Transfer From -- Bed -ML -- -- Toilet Transfer Type -- To -ML -- -- Toilet Transfer to -- -- chair with arms -ML -- -- Toilet Transfer Technique -- Stand and Step -ML -- -- Toilet Transfer: Equipment -- Hand hold -ML -- -- Toilet Transfers -- Moderate assistance x2 -ML -- -- Toilet Transfers Comments -- assist x2 for force production balance and controlled descent -ML -- -- Pain Assessment -- No/denies pain -ML -- -- Pain Score -- 0 - No pain -ML -- -- Chronic Pain Precipitating Factors -- At Rest -ML -- -- Current Vision -- Wears glasses only for reading Pt reports wearing reading glasses all the time -ML -- -- Overall Cognitive Status -- WFL -ML -- -- Arousal/Alertness -- Alert;Appropriate responses to stimuli -ML -- -- Attention Span -- Appears intact -ML -- -- Memory -- Decreased short term memory per SBT -ML -- -- Current communication -- Appears Intact -ML -- -- Orientation -- Oriented X4 (person, place, time, situation) -ML -- -- Following Commands -- Follows all commands and directions without difficulty -ML -- -- Safety Judgment -- Good awareness of safety precautions -ML -- -- Awareness of Errors -- Good awareness of errors made -ML -- -- Insight -- Fully aware of deficits -ML -- -- Problem Solving -- Able to problem solve independently -ML -- -- Compliance/Behavior -- Easy to engage -ML -- -- Perseveration -- Not present -ML -- -- Cognitive Tests -- Yes -ML -- -- What year is it now? -- 0 -ML -- -- What month is it now? -- 0 -ML -- -- Repeat this name and address after me -- Miguel Carrasquillo [address] [place] [address] -ML -- -- Without looking at the clock, tell me what time it is -- 0 -ML -- -- Count aloud backwards from 20-1 -- 0 -ML -- -- Say the months of the year backwards in reverse order -- 0 -ML -- -- Repeat the name and address I asked you to remember -- 2 -ML -- -- Short Blessed Total Score -- 2 -ML -- -- Short Blessed Comments -- WNL -ML -- -- [place] -- Unstructured -ML -- -- Left Omissions -- 1 -ML -- -- Right Omissions -- 8 -ML -- -- Neglect Score -- -7 Hx of CVA affecting R side, however Pt reports no residual deficits of prior CVA. -ML -- -- Time to Complete -- 5 min -ML -- -- Patient completed Trails A in (seconds) -- 87 -ML -- -- Trails A # of errors -- 0 -ML -- -- Trails A score evaluation -- WNL -ML -- -- Unable to complete Trails B due to -- -- Trails B deferred 2/2 Pt requiring max VCs to complete Trails B sample -ML -- -- Light Touch -- WFL BUE -ML -- -- Numbness/Tingling -- No -ML -- -- Sensation Comments -- no edema noted in BUE -ML -- -- Movements Are Fluid and Coordinated -- 1 -ML -- -- Fine Motor -- WFL -ML -- -- Serial Opposition -- WFL;Fair Fair LUE -ML -- -- Hand Preference -- Right -ML -- -- Coordination -- Functional -ML -- -- Gross Grasp -- Functional -ML -- -- RUE Reach -- WFL -ML -- -- LUE Reach -- WFL -ML -- -- RUE Grasp -- Gross grasp 5/5 -ML -- -- LUE Grasp -- Gross grasp 4+/5 -ML -- -- Balance Tests -- Yes -ML -- -- Sitting Balance -- 1 -ML -- -- Arises -- 0 -ML -- -- Attempts to Arise -- 0 -ML -- -- Immediate Standing Balance (First 5 Seconds) -- 0 -ML -- -- Standing Balance -- 0 -ML -- -- Nudged -- 0 -ML -- -- Eyes Closed -- 0 -ML -- -- Turned 360 Degrees: Steadiness -- 0 -ML -- -- Turned 360 Degrees: Continuity of Steps -- 0 -ML -- -- Sitting Down -- 0 -ML -- -- Balance Score -- 1 -ML -- -- Balance -- Yes -ML -- -- Static Sitting-Balance Support -- Bilateral upper extremity supported -ML -- -- Static Sitting-Sitting Surface -- Bed -ML -- -- Static Sitting-Level of Assistance -- Close supervision -ML -- -- Static Sitting-Comment/# of Minutes -- safety -ML -- -- Dynamic Sitting-Balance Support -- Unilateral upper extremity supported -ML -- -- Dynamic Sitting-Balance -- Forward lean;Reaching for objects -ML -- -- Dynamic Sitting-Sitting Surface -- Bed -ML -- -- Dynamic Sitting-Level of Assistance -- Minimum assistance -ML -- -- Dynamic Sitting-Comments -- 2/2 imaired trunk control -ML -- -- Static Standing-Balance Support -- Bilateral upper extremity supported on OT and RN -ML -- -- Static Standing-Standing Surface -- Floor -ML -- -- Static Standing-Level of Assistance -- Minimum assistance x2 -ML -- -- Static Standing-Comment/# of Minutes -- assist x2 for steadying -ML -- -- Bed Mobility -- Yes -ML -- -- Bed Mobility From 1 -- Supine -ML -- -- Bed Mobility Type 1 -- To -ML -- -- Bed Mobility to 1 -- Edge of bed -ML -- -- Level of Assistance 1 -- Maximum Assist -ML -- -- Bed Mobility Comments 1 -- assist to advance LEs and elevate trunk -ML -- -- Transfer -- Yes -ML -- -- Transfer From 1 -- Sit -ML -- -- Transfer Type 1 -- To -ML -- -- Transfer to 1 -- Stand -ML -- -- Transfer Device 1 -- No device -ML -- -- Transfer Level of Assistance 1 -- Moderate Assist x2 -ML -- -- Trials/Comments 1 -- assist x2 for force production, balance, and controlled descent -ML -- -- RUE Assessment -- WFL -ML -- -- RUE Comments -- 07/18 MMT -ML -- -- LUE Assessment -- WFL -ML -- -- LUE Comments -- grossly 07/18 MMT -ML -- -- Comments -- Pt educated on role of OT, agreeable to therapy. Pt would benefit from continued skilled OT to maximize safety and IND in ADLs prior to d/c. POC and recs discussed. -ML -- -- Putting on and taking off regular lower body clothing -- 1 -ML -- -- Bathing -- 2 -ML -- -- Toileting -- 2 -ML -- -- Putting on and taking off upper body clothing -- 2 -ML -- -- Personal Grooming -- 2 -ML -- -- Eating Meals -- 3 -ML -- -- Total Score (range 6-24) -- 12 -ML -- -- Score Interpretation -- 30.60 -ML -- -- Safe Environment End of Therapy Session -- Patient left in recliner;Chair alarm in place and activated;RN notified;Call light within reach;Overbed table within reach -ML -- -- Problem List -- Decreased upper extremity strength;Decreased endurance;Decreased balance;Decreased functional mobility;Decreased ADL independence;Decreased IADL independence;Decreased frequency/variety of movement -ML -- -- Barriers to Discharge -- Current ADL Status;Current Mobility Status -ML -- -- Barrier Comments -- fall risk -ML -- -- Plan -- Plan of care initiated;If this is the last note, consider this the discharge summary -ML ---- OT Recommendation -- Inpatient Rehab Facility -ML -- -- Patient at high risk for -- Falls;Injury due to decreased ability to care for self;Readmission;Injury due to reduced functional status;Injury due to balance deficits;Injury at home as patient has notreturned to prior level of function;Developing impaired skin integrity;Prolonged dependence for self care tasks -ML -- -- Recommend Inpatient Rehab/Acute Rehab due to -- Ability to actively participate in intensive therapy 3 hours/day, 5 days/week or 900 minutes per week;Highly motivated to participate in therapy;Not atbaseline due to impaired ability to complete ADLs;Impaired ability to complete functional mobility;Likely to return to the community at discharge with support system in place;Requires greater than 25% physical assistance with most mobility tasks;Requires greater than 25% physical assistance with most ADL tasks;Requires multiple therapy disciplines to address functional deficits -ML -- -- OT Frequency during current admission -- 5-7x/wk -ML -- -- Treatment/Interventions during current admission -- ADL/IADL retraining;Balance Training;Bed mobility;Compensatory technique education;Endurance training;Equipment eval/education;Functional activity;Functional mobility training;Functional transfer training;Parent/caregiver training and education;Strengthening;Transfer training;Therapeutic exercise;Therapeutic activity -ML -- -- OT - Next Appointment -- 12/14/23 -ML -- -- OT - OK to Discharge -- No -ML -- -- OT Evaluation Complete -- Yes -ML -- -- User Espitia (r) = Recorded By, (t) = Taken By, (c) = Cosigned By Initials Name Effective Dates Cynthia Vasquez, OT 02/02/23 - BB Marilou Yuan, OT 01/06/19 - ML Molly Xavier, OT 06/30/22 - ER Geovanna Villalta, OT 02/02/23 - OT Treatment Row Name 12/14/23917 OT Received On 12/14/23 -ER Precautions Fall risk -ER Weight Bearing Restrictions Yes -ER LLE Weight Bearing WBAT -ER Start Time 917 -ER Stop Time 953 -ER Time Calculation (min) 36 min -ER User Espitia (r) = Recorded By, (t) = Taken By, (c) = Cosigned By Initials Name Effective Dates ER Geovanna Villalta, OT 02/02/23 - OT Notes Notes from 12/12/23 through 12/14/23 No notes of this type exist for this encounter. , PT Eval and Treat Last 72 Hours PT Evaluation Row Name 12/12/23 1143 12/10/23 0928 Chart Reviewed Yes -BA (r) MB (c) -- -AR Session Type Evaluation -BA (r) MB (c) -- -AR Safe Environment Arm band checked;Patient found in supine;Gait belt utilized for all out of bed mobility -BA (r) MB (c) -- Subjective Agreeable to Therapy -BA (r) MB (c) -- Family/Caregiver Present Yes Brother -BA (r) MB (c) -- Physical Therapy-Patient Goal PT agreeble to goals established by SPT -BA (r) MB (c) -- PT Functional Mobility Pt is independent at baseline but requires Max A for functional mobility -BA(r) MB (c) -- Precautions Fall risk -BA (r) MB (c) -- Weight Bearing Restrictions Yes -BA (r) MB (c) -- LLE Weight Bearing WBAT -BA (r) MB (c) -- Precaution Comments Reviewed precautions verbally -BA (r) MB (c) -- Type of Home House -BA (r) MB (c) -- -AR Home Layout One level -BA (r) MB (c) -- -AR Home Access Stairs to enter with rails -BA (r) MB (c) -- -AR Entrance Stairs-Rails Both -BA (r) MB (c) -- -AR Entrance Stairs-Number of Steps 5 -BA (r) MB (c) -- -AR Home Mobility Equipment-Available Wheeled walker;Single point cane -BA (r) MB (c) -- -AR Home Mobility Equipment-Currently Using None -BA (r) MB (c) -- -AR Level of [place] Independent with ADLs;Independent functional transfers;Independent with ambulation -BA (r) MB (c) -- -AR Lives With Alone -BA (r) MB (c) -- -AR Receives Help From Family;Neighbor Communication Engineer assist -BA (r) MB (c) -- -AR Fall within the last 6 months Yes -BA (r) MB (c) -- Fall within the last 6 months comment 1 fall which lead her to this admission - BA (r) MB (c) -- Activity Tolerance Comments RPE: Deferred -BA (r) MB (c) -- Pain Assessment No/denies pain -BA (r) MB (c) -- Following Commands Follows all commands and directions without difficulty -BA (r) MB (c) -- Safety Judgment Decreased awareness of need for assistance -BA (r) MB (c) -- Compliance/Behavior Easy to engage Pt at first stated she had pain but was agreeble to physical therapy -BA (r) MB (c) -- Balance Tests Yes -BA (r) MB (c) -- 1. Sitting to Standing 0 -BA (r) MB (c) -- 2. Standing Unsupported 0 -BA (r) MB (c) -- 3. Sitting with Back Unsupported but Feet Supported on Floor or on a Stool 3 -BA (r) MB (c) -- 4. Standing to Sitting 0 -BA (r) MB (c) -- 5. Transfers 0 -BA (r) MB (c) -- 6. Standing Unsupported with Eyes Closed 0 -BA (r) MB (c) -- 7. Standing Unsupported with Feet Together 0 -BA (r) MB (c) -- 8. Reach Forward with Outstretched Arm While Standing 0 -BA (r) MB (c) -- 9. Public Works Commissioner Object from Floor from a Standing Position 0 -BA (r) MB (c) -- 10. Turning to Look Behind Over Left and Right Shoulders While Standing 0 -BA (r) MB (c) -- 11. Turn 360 Degrees 0 -BA (r) MB (c) -- 12. Place Alternate Foot on Step or Stool While Standing Unsupported 0 -BA (r) MB (c) -- 13. Standing Unsupported One Foot in Front 0 -BA (r) MB (c) -- 14. Standing on One Leg 0 -BA (r) MB (c) -- [place] Balance Score 3 -BA -- Balance Yes -BA (r) MB (c) -- Static Sitting-Balance Support Bilateral upper extremity supported -BA (r) MB (c) -- Static Sitting-Sitting Surface Bed -BA (r) MB (c) -- Static Sitting-Level of Assistance Close supervision;Moderate assistance -BA (r) MB (c) -- Static Sitting-Comment/# of Minutes PT and SPT near pt while she was sitting. Verbal cues to use UEto support her trunk balance -BA (r) MB (c) -- Static Standing-Balance Support Bilateral upper extremity supported -BA (r) MB (c) -- Static Standing-Standing Surface Floor -BA (r) MB (c) -- Static Standing-Level of Assistance Maximum assistance -BA (r) MB (c) -- Static Standing-Comment/# of Minutes Max Ax2, Pt held onto SPT and PT -BA (r) MB (c) -- Bed Mobility Yes -BA (r) MB (c) -- Bed Mobility From 1 Supine -BA (r) MB (c) -- Bed Mobility Type 1 To -BA (r) MB (c) -- Bed Mobility to 1 Edge of bed -BA (r) MB (c) -- Level of Assistance 1 Maximum Assist -BA (r) MB (c) -- Bed Mobility Comments 1 Max Ax2, SPT assisted with trunk and PT assisted with LEs. -BA (r) MB (c) -- Transfer Yes -BA (r) MB (c) -- Transfer From 1 Sit -BA (r) MB (c) -- Transfer Type 1 To and from -BA (r) MB (c) -- Transfer to 1 Stand -BA (r) MB (c) -- Technique 1 Sit to stand -BA (r) MB (c) -- Transfer Device 1 No device -BA (r) MB (c) -- Transfer Level of Assistance 1 Moderate Assist -BA (r) MB (c) -- Trials/Comments 1 Mod Ax2 -BA (r) MB (c) -- Transfer From 2 Stand;Bed -BA (r) MB (c) -- Transfer Type 2 To -BA (r) MB (c) -- Transfer to 2 Chair with arms -BA (r) MB (c) -- Technique 2 Stand and step -BA (r) MB (c) -- Transfer Device 2 No device -BA (r) MB (c) -- Transfer Level of Assistance 2 Maximum Assist -BA (r) MB (c) -- Trials/Comments 2 Max Ax2, Pt held onto SPT and PT while verbally cued to take small steps towards the chair. -BA (r) MB (c) -- Ambulation No -BA (r) MB (c) -- Stairs No -BA (r) MB (c) -- RLE Assessment WFL -BA (r) MB (c) -- LLE Assessment X -BA (r) MB (c) -- LLE Comments PROM performed due to pain and swelling in the L LE. -BA (r) MB (c) -- Other PT Comments Pt is agreeble to POC and DC recs set byt PT -BA (r) MB (c) -- How much difficulty does the patient have: Turning over in bed 2 -BA (r) MB (c) -- How much difficulty does the patient currently have: Sitting down and standing up from a chair witharms? 2 -BA (r) MB (c) -- How much difficulty does the patient have: Moving from lying on back to sitting on the side of the bed? 2 -BA (r) MB (c) -- How much difficulty does the patient have: Moving to and from a bed to a chair including wheelchair? 2 -BA (r) MB (c) -- How much help does the patient currently need: Walk in hospital room? 1 -BA (r) MB (c) -- How much help from another person does the patient currently need: Climbing 3-5 steps with a railing? 1 -BA (r) MB (c) -- Total 6 Click Score (range 6-24) 10 -BA -- Safe Environment End of Therapy Session Patient left in recliner;Chair alarm in place and activated;RN notified;Call light within reach -BA (r) MB (c) -- Prognosis Good -BA (r) MB (c) -- Problem List Decreased strength;Decreased range of motion;Decreased endurance;Impaired balance;Decreased mobility;Pain -BA (r) MB (c) -- Problem List Comments Left IT fx s/p ORIF with screw results in above listed activity deficits and impairments which prevent full participation in home and community mobility -BA (r) MB (c) -- Barriers to Discharge Current Mobility Status;Inaccessible home environment;Decreased caregiver support -BA (r) MB (c) -- Plan If this is the last note, consider this the discharge summary;Plan of care initiated -BA (r) MB (c) -- PT Recommendation/Plan Inpatient Rehab Facility -BA (r) MB (c) -- Patient at high risk for Readmission;Falls;Injury due to decreased ability to care for self;Injury due to reduced functional status;Injury at home as patient has not returned to prior level of function -BA (r) MB (c) -- Recommend Inpatient Rehab/Acute Rehab due to Ability to actively participate in intensive therapy 3hours/day, 5 days/week or 900 minutes per week;Not at baseline due to impaired ability to complete ADLs;Requires greater than 25% physical assistance with most mobility tasks -BA (r) MB (c) -- PT Frequency during current admission 5-7x/wk -BA (r) MB (c) -- Treatment/Interventions during current admission Balance Training;Bed mobility;Endurance training;Functional activity;Neuromuscular re- education;Therapeutic activity;Therapeutic exercise;Strengthening -BA (r) MB (c) -- PT Equipment Recommended None -BA (r) MB (c) -- PT Evaluation Complete Yes -BA (r) MB (c) -- Start Time 1143 -BA (r) MB (c) -- Stop Time 1212 -BA (r) MB (c) -- Time Calculation (min) 29 min -BA -- User Espitia (r) = Recorded By, (t) = Taken By, (c) = Cosigned By Initials Name Effective Dates Adilia Hernandez, PT 02/14/19 - Jorge Rocha, PT 11/14/20 - William Cedeno 11/24/23 - PT TREATMENT (Last 168 Hours) PT Treatment No documentation. PT Notes Notes from 12/12/23 through 12/14/23 No notes of this type exist for this encounter. , Wound Info Only Active Wound Assessment Active Wound / Pressure injury / Roy / Negative Pressure Wound / Incision Wound 12/09/23 Incision Thigh Left;Lateral Date First Assessed 12/09/23 Site Thigh Time First Assessed 1708 Days 4 Present on Original Admission: N Primary Wound Type: Incision Location Orientation: Left;Lateral Assessments Row Name 12/14/23 0800 12/13/23 2000 12/13/23 1600 12/13/23 1200 12/13/23 0800 Dressing Status Clean/Dry/Intact Drainage shadowing Clean/Dry/Intact Reinforced Drainage shadowing;Reinforced Site Assessment MICHAEL MICHAEL MICHAEL MICHAEL MICHAEL Shape & Pattern -- Linear Linear Linear Linear Taya-wound Assessment MICHAEL MICHAEL Dry;Intact Dry;Intact Dry;Intact Interventions Site care -- -- -- Tape change Dressing ABD Island dressing Island dressing Island dressing Island dressing Margins MICHAEL MICHAEL MICHAEL MICHAEL MICHAEL Wound Status -- -- Healing Healing Healing Closure Unable to assess Unable to assess Theodore Harrah Theodore Row Name 12/12/231999 Dressing Status Drainage shadowing Site Assessment MICHAEL Shape & Pattern Linear Taya-wound Assessment MICHAEL Interventions -- Dressing [place] dressing Margins MICHAEL Wound Status -- Closure Unable to assess Surgical Site 08/07/23 Anterior;Proximal;Right Thigh right femoral access Date First Assessed 08/07/23 Site Thigh Time First Assessed 1310 Days 128 Location Orientation: Anterior;Proximal;Right Additional wound location identifiers: right femoral access Assessments , Vitals Info Only Vital Signs 12/12 0712/13 0659 12/13 1156 Most Recent Temp (??C) 36.3 - 37.3 36.8 - 37.1 36.8 (98.2) 12/13 1153 Pulse 84 - 132 85 - 96 92 12/13 1100 Resp 12 - 21 12 - 17 17 12/13 1100 SpO2 (%) 94 - 100 95 - 99 97 12/13 1100 BP 87/48 - 148/71 92/54 - 125/71 111/53 12/13 1100 MAP (mmHg) 56 - 120 61 - 83 68 12/13 1100 , Oxygen Info Only Default Flowsheet Data (most recent) Endurance Tests No documentation. Default Flowsheet Data (Last 48 Hours) Oxygen Row Name 12/14/23 1100 12/14/23 1000 12/14/23 0925 12/14/23 0912/14/23 0800 Oxygen Therapy/Pulse Ox O2 Therapy None (Room air) None (Room air) -- None (Room air) None (Room air) SpO2 97 % 96 % 99 % 98 % 96 % Row Name 12/14/23 0700 12/14/23 0600 12/14/23 0500 12/14/23 0400 12/14/23 0320 Oxygen Therapy/Pulse Ox O2 Therapy None (Room air) -- -- -- -- SpO2 95 % 97 % 96 % 97 % 96 % Patient Activity At rest -- -- -- -- Row Name 12/14/23 0315 12/14/23 0300 12/14/23 0221 12/14/23 0200 12/14/23 0100 Oxygen Therapy/Pulse Ox SpO2 97 % 95 % 96 % 96 % 96 % Row Name 12/14/23 0000 12/13/23 2334 12/13/23 2330 12/13/23 2325 12/13/23 2320 Oxygen Therapy/Pulse Ox SpO2 96 % 96 % 96 % 96 % 95 % Row Name 12/13/23 2300 12/13/23 2200 12/13/23 2100 12/13/23 2000 12/13/23 1900 Oxygen Therapy/Pulse Ox SpO2 94 % 95 % 96 % 96 % 95 % Row Name 12/13/23 1800 12/13/23 1700 12/13/23 1600 12/13/23 1500 12/13/23 1400 Oxygen Therapy/Pulse Ox O2 Therapy None (Room air) None (Room air) None (Room air) None (Room air) None (Room air) SpO2 96 % 97 % 97 % 98 % 97 % Patient Activity At rest At rest At rest At rest At rest Row Name 12/13/23 1300 12/13/23 1200 12/13/23 1100 12/13/23 1000 12/13/23 0945 Oxygen Therapy/Pulse Ox O2 Therapy Supplemental oxygen Supplemental oxygen Supplemental oxygen Supplemental oxygen -- O2 Del Method Nasal cannula Nasal cannula Nasal cannula Nasal cannula -- O2 Flow Rate (L/min) 2 L/min 2 L/min 2 L/min 2 L/min -- SpO2 99 % 99 % 98 % 100 % 100 % Patient Activity At rest At rest At rest At rest -- Row Name 12/13/23 0930 12/13/23 0900 12/13/23 0830 12/13/23 0800 12/13/23 0730 Oxygen Therapy/Pulse Ox O2 Therapy -- Supplemental oxygen -- Supplemental oxygen -- O2 Del Method -- Nasal cannula -- Nasal cannula -- O2 Flow Rate (L/min) -- 2 L/min -- 2 L/min -- SpO2 100 % 100 % 100 % 100 % 100 % Patient Activity -- At rest -- At rest -- Row Name 12/13/23 0725 12/13/23 0720 12/13/23 0715 12/13/23 0710 12/13/23 0706 Oxygen Therapy/Pulse Ox SpO2 100 % 100 % 100 % 100 % 100 % Row Name 12/13/23 0700 12/13/23 0657 12/13/23 0400 12/13/23 0300 12/13/23 0200 Oxygen Therapy/Pulse Ox SpO2 100 % 100 % 100 % 100 % 98 % Row Name 12/13/23 0100 12/13/23 0000 12/12/23 2300 12/12/23 2256 12/12/23 2200 Oxygen Therapy/Pulse Ox SpO2 100 % 100 % 100 % 100 % 100 % Row Name 12/12/23 2100 12/12/23 2000 12/12/23 1900 12/12/23 1800 12/12/23 1700 Oxygen Therapy/Pulse Ox SpO2 100 % 99 % 100 % 100 % 100 % Row Name 12/12/23 1600 12/12/23 1500 12/12/23 1416 12/12/23 1300 12/12/23 1212 Oxygen Therapy/Pulse Ox O2 Therapy Supplemental oxygen Supplemental oxygen Supplemental oxygen Supplemental oxygen Supplemental oxygen O2 Del Method Nasal cannula Nasal cannula Nasal cannula Nasal cannula Nasal cannula O2 Flow Rate (L/min) 2 L/min 2 L/min 2 L/min 2 L/min 2 L/min SpO2 100 % 100 % 100 % 100 % 99 % Patient Activity -- -- -- -- At rest Row Name 12/12/23 1200 Oxygen Therapy/Pulse Ox O2 Therapy Supplemental oxygen O2 Del Method Nasal cannula O2 Flow Rate (L/min) 2 L/min SpO2 100 % * Treatment Plan - Parris Soto NP - 12/14/2023 6:50 AM CDT Images from the original note were not included. [facility] Geriatric Trauma Service Initial Geriatric Assessment Note Fall risk assessment completed by PT/OT? Yes Home safety evaluation needed? Requires placement PUT FALL RISK CLASSIFICATION LIST HERE ACP Discussion: completed on Patient and Son (12/09) with children, orders updated in chart to reflect discussion, LIMITED - No CPR Next of Kin/Surrogate Decision Maker: Son Elio, relationship: child, confirmed contact informationin chart YES Fall as primary trauma: YES - Vitamin D and fall risk prevention education provided Bone Health Referral at discharge: ordered PT/OT orders: YES Medication review using BEERS Criteria Potentially inappropriate medications identified: Alprazolam Changes made: None, pt cautioned use Primary care provider identified Yes If No - plan to establish PCP? If BMI <20, or Tube feeds, or TPN - Nutrition consult placed? No Bone health referral unless no fractures or osteoporosis? Yes VTE prophylaxis? Yes Anticoagulation assessment performed? Yes theraeutic Eliquis at discharge Review of past medical records? Yes - Syncope evaluation needed? ECHO completed Delirium prevention: The patient does wear corrective lenses - if so, will make sure they have their corrective lenses The patient does not wear hearing aids - if so, will make sure they have their hearing aids Vital signs do need to be obtained between 10pm and 6am Daily blood work may be drawn during the daytime hours unless otherwise specified and are not needed to be drawn before daily rounds. Admission Imaging Reviewed - if any incidental findings -use dotphrase to summarize findings in patient discharge instructions Parris Soto NP Section of Acute and Critical Care Surgery * Assessment & Plan Note - Parris Soto NP - 12/13/2023 4:50 PM CDT Associated Problem(s): Acute blood loss anemia (ABLA) 12/09 Hgb 11-> 8.4, 1 unit PRBC, post transfusion Hgb stable 8.5 12/12 Hgb 6.2, 1unit PRBC, post Hgb 7.1, CTM 12/13 stable Hgb 8.1 12/14 Hgb 8.3, stable 12/15 Hgb 7.7 (7.7), stable * Plan of Care - Anh Savage RN - 12/13/2023 10:16 AM CDT Problem: Lack of Knowledge Goal: Ability to develop a pain control plan will improve Outcome: Ongoing Problem: Medication Goal: Satisfaction with pain management medication regimen will improve Outcome: Ongoing Problem: Sensory Goal: Ability to identify factors that increase pain levels will improve while working to decrease the patient's pain levels Outcome: Ongoing Problem: Coping Goal: Ability to cope will improve Outcome: Ongoing Problem: Health Behavior Goal: Identification of resources available to assist in meeting health care needs will improve Outcome: Ongoing Problem: Discharge Planning Goal: Understanding discharge needs will improve Outcome: Ongoing Problem: Fall Risk Goal: Ability to state ways to decrease the risk of falls will improve Outcome: Ongoing Goal: Will remain free from falls Outcome: Ongoing Goal: Will remain free from injury from falls Outcome: Ongoing Problem: Skin Integrity Impairment Risk Goal: Mobility will improve Outcome: Ongoing Goal: Understanding of ways to prevent future skin breakdown will improve Outcome: Ongoing Goal: Nutritional status will improve Outcome: Ongoing Goal: Risk for impaired skin integrity will decrease Outcome: Ongoing * Plan of Care - Alfredo Lind RN - 12/12/2023 10:43 PM CDT Problem: Lack of Knowledge Goal: Ability to develop a pain control plan will improve Outcome: Progressing Problem: Medication Goal: Satisfaction with pain management medication regimen will improve Outcome: Progressing Problem: Sensory Goal: Ability to identify factors that increase pain levels will improve while working to decrease the patient's pain levels Outcome: Progressing Problem: Coping Goal: Ability to cope will improve Outcome: Progressing Problem: Health Behavior Goal: Identification of resources available to assist in meeting health care needs will improve Outcome: Progressing Problem: Skin Integrity Impairment Risk Goal: Mobility will improve Outcome: Progressing Goal: Understanding of ways to prevent future skin breakdown will improve Outcome: Progressing Goal: Nutritional status will improve Outcome: Progressing Goal: Risk for impaired skin integrity will decrease Outcome: Progressing Goals: Clinical Goals for the Shift: VSS, pain managed, I/O, bath Group Home Patient Centered Goal for Treatment: discharge Summary: patient progressing toward all goals, will monitor closely for changes. * Assessment & Plan Note - Parris Soto NP - 12/12/2023 1:29 PM CDT Associated Problem(s): Urinary retention 12/11 required straight cath overnight,430 mL retained, in the setting of Hyperkalemia placed Lucio 12/13 void trial pending 12/14 voiding without difficulty 1.5L RESOLVED * Assessment & Plan Note - Parris Soto NP - 12/12/2023 1:27 PM CDT Associated Problem(s): Hyperkalemia 12/11 serum K 5.8-> hyperkalemia protocol initiated, EKG unchanged, repeat whole blood K 4.7, placed Lucio 12/12 stable 5.0 12/13 lateral 5.0-5.4, CTM 12/14 5.3, whole blood K 5.1 12/15 WBK 4.8 * Plan of Care - Clara Padilla RN - 12/11/2023 6:19 PM CDT Goals: Clinical Goals for the Shift: VSS, pain managed, I/O, bath Group Home Patient Centered Goal for Treatment: discharge Summary: vitals stable, pain monitored, bath completed, Q2 turns completed, lucio removed- failed void trial- bladder scan showed 277, pt tolerated griselda assistance during transfer from chair to bed. * ACP (Advance Care Planning) - Kaci Espinosa MSW - 12/11/2023 11:46 AM CDT Advance Care Planning Advance Care Planning Conversation The patient and/or family consented to a voluntary Advance Care Planning conversation. 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 Patient A&O X 4 and agreeable to sing documentation.RADHA spoke with [facility] for [facility]. Document notarized and RADHA faxed to medical records. Original document provided to patient, RADHA created copy for records. Outcome of the conversation and documents completed (select all that apply): Advance Directive completed and sent to medical records and Durable POA form completed and sent to medical records The services provided in this conversation and described in this note are non- billable and to be used for ongoing clinical care only. RICH Grullon * Plan of Care - Carolyn Sullivan RN - 12/11/2023 3:39 AM CDT Problem: Lack of Knowledge Goal: Ability to develop a pain control plan will improve Outcome: Progressing Problem: Medication Goal: Satisfaction with pain management medication regimen will improve Outcome: Progressing Problem: Sensory Goal: Ability to identify factors that increase pain levels will improve while working to decrease the patient's pain levels Outcome: Progressing Problem: Coping Goal: Ability to cope will improve Outcome: Progressing Problem: Health Behavior Goal: Identification of resources available to assist in meeting health care needs will improve Outcome: Progressing Problem: Discharge Planning Goal: Understanding discharge needs will improve Outcome: Progressing Problem: Fall Risk Goal: Ability to state ways to decrease the risk of falls will improve Outcome: Progressing Goal: Will remain free from falls Outcome: Progressing Problem: Skin Integrity Impairment Risk Goal: Mobility will improve Outcome: Ongoing Goal: Understanding of ways to prevent future skin breakdown will improve Outcome: Progressing Goal: Nutritional status will improve Outcome: Progressing Goal: Risk for impaired skin integrity will decrease Outcome: Progressing Problem: Skin Integrity Impairment Risk Goal: Mobility will improve Outcome: Ongoing Problem: Lack of Knowledge Goal: Ability to develop a pain control plan will improve Outcome: Progressing Problem: Medication Goal: Satisfaction with pain management medication regimen will improve Outcome: Progressing Problem: Sensory Goal: Ability to identify factors that increase pain levels will improve while working to decrease the patient's pain levels Outcome: Progressing Problem: Coping Goal: Ability to cope will improve Outcome: Progressing Problem: Health Behavior Goal: Identification of resources available to assist in meeting health care needs will improve Outcome: Progressing Problem: Discharge Planning Goal: Understanding discharge needs will improve Outcome: Progressing Problem: Fall Risk Goal: Ability to state ways to decrease the risk of falls will improve Outcome: Progressing Goal: Will remain free from falls Outcome: Progressing Problem: Skin Integrity Impairment Risk Goal: Understanding of ways to prevent future skin breakdown will improve Outcome: Progressing Goal: Nutritional status will improve Outcome: Progressing Goal: Risk for impaired skin integrity will decrease Outcome: Progressing Goals: Clinical Goals for the Shift: VSS, comfort and safety, comfort and safety, Is/Os Health Care Law Specialist Patient Centered Goal for Treatment: discharge Summary: VSS * Assessment & Plan Note - Emy Sanchez NP - 12/10/2023 3:35 PM CDT Associated Problem(s): BMI 34.0-34.9,adult BMI 34.18 * Assessment & Plan Note - Emy Sanchez NP - 12/10/2023 3:34 PM CDT Associated Problem(s): Sleep apnea Patient uses CPAP at home - home machine at bedside * Assessment & Plan Note - Emy Sanchez NP - 12/10/2023 3:01 PM CDT Associated Problem(s): Stroke-like symptom 12/09 code stroke called after patient noted to have left facial droop and left arm ataxia, taken toCT - stat head CT with - New foci of new hypoattenuation within the right temporal lobe and likely the left temporal lobe,although evaluation is somewhat limited due to beam hardening artifact. Findings are concerning forischemic infarct or cerebritis, possibly in the setting [...] to monitor, improving 12/14 continues to improve * Assessment & Plan Note - Emy Sanchez NP - 12/10/2023 2:58 PM CDT Associated Problem(s): Symptomatic hypotension 12/09 called to bedside for systolic BP [...] continue Coreg 25 mg BID PO RESOLVED * Significant Event - Emy Sanchez NP - 12/10/2023 2:24 PM CDT Critical Care The patient required Critical Care to treat or prevent imminent or life- threatening deterioration of the following medical problems or diagnoses: unresponsive hypotension in the post op setting with a history of a-fib Critical Care Provided: Called to patient room with patient return of stroke-like symptoms of facial droop and left arm ataxia. Patient also demonstrating persistent hypotension with systolic BP in the 70's. Patient placed in supine position. An ACT was called, BNP (815), Trop (8) and lactate (1.4 POC) Hgb (8.4) obtained, EKG completed, demonstrating A-fib. Patient ordered and given 1 unit pRBC and 1L NS. Lucio catheter placed. Minimal improvement in blood pressure to 80s-90s systolic, heart rate remained in A-fib 80s-120s. Oxygen saturation remained >95% on 2L NC. With improvement of blood pressure, patient facial droop and ataxia also improved. Losartan, spironolactone, Lasix and carvedilol stopped. (Lasix is no longer on patient current medication list) -Cardiology consult placed -TTE ordered -Patient transferred to OU for closer observation and blood pressure management I spent a total of 75 minutes in full attendance of this critically ill patient making frequent bed-side assessments and coordinating medical care. I have reviewed and confirmed the patient's history, physical exam, laboratory, and radiographic data. Emy Dorado Sink * Significant Event - David Christina MD - 12/10/2023 1:43 PM CDT ACT/Code Note ACT called to 6447-01 bedside for hypotension. 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 Code stroke called earlier today for worsened L facial droop and LUE weakness; unable to rule out new stroke in previous stroke territory given that AC was held for 2 days (prior strokes occurred 3 and 6 days after holding Eliquis) and recent major surgery. NIHSS low and not candidate for thrombolytics or thrombectomy. After code stroke, BPs noted to be persistently low with mando 66/44 and trending in70s/40s, so fluids started, 1u pRBCs ordered, ACT called. On arrival, primary team at bedside. BPs low as above. Informed that EBL from procedure of 400 mL with BPs on recheck persistently in 80s/40s. Hgb 11.3 -> 8.8. Patient asymptomatic without lightheadedness/dizziness, shortness of breath, chest pain, nausea/vomiting, constipation/diarrhea, concernfor hematoma. Exam without hematoma or significant tenderness at surgical site. Left facial droop and LUE/LLE weakness present, worse than baseline but in same distribution as prior stroke. IVF started with minor improvement in BPs (80s/50s). Patient placed in Trendelenburg. EKG obtained showing atrial fibrillation, stable biphasic T-waves in lead III compared to prior. Trops and BNP obtained. pRBCs started, fluids continued for total of approximately 750 mL. BPs improved to consistent MAP 60 mid-transfusion. On further chart review, BPs normal @ 0730, meds given @ 0755 including home antihypertensives, then CT stroke called followed by ACT for hypotension @ 1000- 1100 as above. Favor combination of periprocedural blood loss, home antihypertensive medications, potentially reduced PO intake contributed to hypotension. Discussed with primary team finishing IVF & pRBCs (cautiously given heart failure), holding home antihypertensives & restarting/titrating based on BPs, TTE, cardiology c/s to re-evaluate heart failure, volume status, atrial fibrillation, & anticoagulation recs in setting ofrecent surgery & concern for stroke. David Christina MD Internal Medicine PGY-2 12/10/2023 1:44 PM * Plan of Care - Daniela Arshad RN - 12/10/2023 1:29 PM CDT Problem: Lack of Knowledge Goal: Ability to develop a pain control plan will improve Outcome: Progressing Problem: Medication Goal: Satisfaction with pain management medication regimen will improve Outcome: Progressing Problem: Sensory Goal: Ability to identify factors that increase pain levels will improve while working to decrease the patient's pain levels Outcome: Progressing Problem: Coping Goal: Ability to cope will improve Outcome: Progressing Problem: Health Behavior Goal: Identification of resources available to assist in meeting health care needs will improve Outcome: Progressing Problem: Discharge Planning Goal: Understanding discharge needs will improve Outcome: Progressing Problem: Fall Risk Goal: Ability to state ways to decrease the risk of falls will improve Outcome: Progressing Goal: Will remain free from falls Outcome: Progressing Goal: Will remain free from injury from falls Outcome: Progressing Problem: Skin Integrity Impairment Risk Goal: Mobility will improve Outcome: Progressing Goal: Understanding of ways to prevent future skin breakdown will improve Outcome: Progressing Goal: Nutritional status will improve Outcome: Progressing Goal: Risk for impaired skin integrity will decrease Outcome: Progressing Goals: Clinical Goals for the Shift: VSS, pain management, rest and comfort, I&O, safety Health Care Law Specialist Patient Centered Goal for Treatment: discharge Summary: * Significant Event - Sink, Emy Dorado NP - 12/10/2023 11:46 AM CDT Critical Care The patient required Critical Care to treat or prevent imminent or life- threatening deterioration of the following medical problems or diagnoses: rule out acute stroke Critical Care Provided: Called to bedside approximately 10:45am where patient noted to have left facial droop and left arm ataxia. On exam she was alert, oriented x3, no aphagia or agnosia noted, no gaze deviation. Blood pressure stable, patient noted to be in A-fib. Due to patient history of stroke x2 a code stroke was called and the patient was take to CT for emergent head CT. Stroke team met with staff and patient in radiology and examined patient. Imaging obtained. Patient returned safely to hospital floor. Will continue Neuro examinations every 4 hours. Speech consulted. Per stroke team, will consider Brain MRI if clinically appropriate. I spent a total of 50 minutes in full attendance of this critically ill patient making frequent bed-side assessments and coordinating medical care. I have reviewed and confirmed the patient's history, physical exam, laboratory, and radiographic data. Emy Sanchez * Assessment & Plan Note - Emy Sanchez NP - 12/10/2023 8:36 AM CDT Associated Problem(s): Electrolyte depletion 12/09 magnesium and potassium replaced * Plan of Care - Jazmyn Santos RN - 12/10/2023 4:59 AM CDT Problem: Lack of Knowledge Goal: Ability to develop a pain control plan will improve Outcome: Progressing Problem: Medication Goal: Satisfaction with pain management medication regimen will improve Outcome: Progressing Problem: Sensory Goal: Ability to identify factors that increase pain levels will improve while working to decrease the patient's pain levels Outcome: Progressing Problem: Coping Goal: Ability to cope will improve Outcome: Progressing Problem: Health Behavior Goal: Identification of resources available to assist in meeting health care needs will improve Outcome: Progressing Problem: Discharge Planning Goal: Understanding discharge needs will improve Outcome: Progressing Problem: Fall Risk Goal: Ability to state ways to decrease the risk of falls will improve Outcome: Progressing Goal: Will remain free from falls Outcome: Progressing Goal: Will remain free from injury from falls Outcome: Progressing Problem: Skin Integrity Impairment Risk Goal: Mobility will improve Outcome: Progressing Goal: Understanding of ways to prevent future skin breakdown will improve Outcome: Progressing Goal: Nutritional status will improve Outcome: Progressing Goal: Risk for impaired skin integrity will decrease Outcome: Progressing Goals: Clinical Goals for the Shift: VSS, pain management, rest and comfort, I&Os, safety Group Home Patient Centered Goal for Treatment: discharge Summary: Patient's VSS. Medications administered as ordered. Pain managed. Glucose monitored. * Plan of Care - Daniela Arshad RN - 12/09/2023 4:34 PM CDT Problem: Lack of Knowledge Goal: Ability to develop a pain control plan will improve Outcome: Progressing Problem: Medication Goal: Satisfaction with pain management medication regimen will improve Outcome: Progressing Problem: Sensory Goal: Ability to identify factors that increase pain levels will improve while working to decrease the patient's pain levels Outcome: Progressing Problem: Coping Goal: Ability to cope will improve Outcome: Progressing Problem: Health Behavior Goal: Identification of resources available to assist in meeting health care needs will improve Outcome: Progressing Problem: Discharge Planning Goal: Understanding discharge needs will improve Outcome: Progressing Problem: Fall Risk Goal: Ability to state ways to decrease the risk of falls will improve Outcome: Progressing Goal: Will remain free from falls Outcome: Progressing Goal: Will remain free from injury from falls Outcome: Progressing Problem: Skin Integrity Impairment Risk Goal: Mobility will improve Outcome: Progressing Goal: Understanding of ways to prevent future skin breakdown will improve Outcome: Progressing Goal: Nutritional status will improve Outcome: Progressing Goal: Risk for impaired skin integrity will decrease Outcome: Progressing Goals: Clinical Goals for the Shift: VSS, pain management, rest and cmfort, I&O, NPO Health Care Law Specialist Patient Centered Goal for Treatment: Discharge Summary: VSS, pain management, rest and comfort, I&O, NPO * Op Note - Homer Villalobos MD - 12/09/2023 4:15 PM CDT OPERATIVE REPORT Date of Surgery: 12/09/23 Attending Surgeon: Homer Villalobos MD MSc ASSISTANTS: Surgeons and Role: * Homer Villalobos MD - Primary * Mahogany Zamudio MD - Resident - Assisting * Cuba Humphrey MD - Fellow ANESTHESIA: General PREOPERATIVE DIAGNOSIS: Left intertrochanteric femur fracture POSTOPERATIVE DIAGNOSIS: Same as above PROCEDURE: Open reduction and internal fixation of left intertrochanteric femur fracture IMPLANTS: 1. Synthes DHS, 130 degree, 10 hole, 1.7 cable, 90 lag screw with compression screw CLINICAL NOTE/INDICATIONS: This patient is a 83 y.o. female who sustained a left intertrochanteric femur fracture while falling. We recommended open reduction and internal fixation to decrease the risk of malunion and nonunion, and allow for early comfortable mobilization and weightbearing. She understands the risks and benefits, and wishes to proceed. Written consent was obtained. DESCRIPTION OF PROCEDURE: Prema Pearce was brought to the preoperative area. The correct limb was marked with the skin marker. She received a weight appropriate dose of IV antibiotics prior to starting surgery. She has taken to the operative theater. A timeout with members of Anesthesia, Orthopedics, and Nursing teamsagreeing on the correct side of surgery, correct surgical plan, correct patient. Once this was completed, she was given general anesthetic, intubated without complication, placed in a supine positionon the traction table. All bony prominences were well padded. The left limb was manipulated with the traction table and a reduction achieved and confirmed with biplanar fluoroscopy. Then the left lower extremity was prepped and draped in the usual fashion from the flank to the knee. We began with the lateral incision at the level of the vastus ridge extending distally along the lateral thigh in line with the femur sharply through skin, subcutaneous tissue, and fascia exposing the proximal 10 cm of the femur. The iliotibial band was incised in line with its fibers and the quadriceps was split and then elevated away from the lateral cortex. The 130 degree angle guide and guidewire were then placed on the lateral femur and fluoroscopic imaging confirming the appropriate position, we placed a guidewire into a center/center position in the femoral head across the femoral neckand intertrochanteric fracture line. The length was measured and the proximal femur was machined for application of the lag screw and side plate. The lag screw was then placed and the screwdriver removed. Alcazar elevator was used to make a submuscular plane extending distally to overlap with the distal femoral replacement stem and then a 10 hole side plate was slid in the submuscular plane, positioned on the lateral femur, and then slid into the path of the lag screw in the proximal femur, interdigitating with the lag screw. Two screws were placed through the plate into the proximal femur securing the side plate, then the compression screw was used to compress across the intertrochanteric fracture. A counter incision of approximately 4 cm was made at the level of the distal end of the platearound the stem of the real femoral replacement. Skin, subcutaneous tissue, fascia, and iliotibial band were incised, then the quadriceps was split and a Alcazar elevator was passed to create an anterior and posterior plane for passage of the cerclage cable. The percutaneous Passer was then carefully placed around the femur remaining in contact with the femur, then the exchange to passed, then the cable passed and position confirmed. The cable was tensioned and secured to the side plate, then crimped and the excess cable cut. We then prescrubbed with chlorhexidine solution, copiously irrigated, and closed each wound in layers. Xeroform and dry sterile dressing were applied. Anesthesia was reversed. She was extubated without complication, taken to the PACU in stable condition. POSTOPERATIVE PLAN: 1. Weight bearing as tolerated, left lower extremity 2. 24 hours of perioperative IV antibiotics ESTIMATED BLOOD LOSS: Per Anesthesia INTRAOPERATIVE FLUIDS: Per Anesthesia SPONGE/INSTRUMENT/NEEDLE COUNTS: Correct CONDITION ON DISCHARGE: Stable COMPLICATIONS: None STATEMENT OF ATTENDING SURGEON'S PRESENCE: I am the attending surgeon. I was scrubbed and present for the critical portions of the case, including the approach, fracture reduction and application of all implants. For all other non-critical portions of the case, Dr. Cuba Humphrey was scrubbed and present. Please note that Dr. Cuba Humphrey's assistance was necessary because of the complexity of the case and lack of qualified senior resident availability. Specifically, his assistance was necessary to help perform the approach, align the fractures, and maintain alignment while implants were applied. Homer Villalobos MD MSc * Brief Op Note - Mahogany Zamudio MD - 12/09/2023 4:15 PM CDT Operative Progress Note Surgical Team: Surgeons and Role: * Homer Villalobos MD - Primary * Mahogany Zamudio MD - Resident - Assisting * Cuba Humphrey MD - Fellow Anesthesiologist: Axel Ryan MD; Endy Shanks MD SAP DATA ANALYST: Shagufta Finch CRNA Student Nurse Paintless Dent Repair Technician: Kevin Larios Dehydrator Operator: Uri Willams RN; Ayleen Espinoza RN Physician Engineering Clerk: Jermaine Jaimes PA Scrub: Bethel Stevens ST DATE OF SURGERY : 12/09/2023 Preoperative Diagnosis: Pre-op Diagnosis * Closed nondisplaced intertrochanteric fracture of left femur, initial encounter ([facility]) [S72.145A] Postoperative Diagnosis: Post-op Diagnosis * Closed nondisplaced intertrochanteric fracture of left femur, initial encounter ([facility]) [U92.005A] Procedure(s): Procedure(s) (LRB): OPEN REDUCTION INTERNAL FIXATION LEFT INTERTROCHANTERIC FEMUR FRACTURE (Left) Operative Findings: IT fracture Estimated Blood Loss: 150 Intraoperative Fluids: 500 mls Specimens: No specimen collected in procedure Implants: Implant Name Type Inv. Item Serial No. Manager Fitness Lot No. LRB No. Used Action SYNTHES Dhs/dcp 174mm 38mm 10 Hole Hip Condyle 130d Standard Barrel Plate 281.010S - [id number] SYNTHES Dhs/dcp 174mm 38mm 10 Hole Hip Condyle 130d Standard Barrel Plate 281.010S [employer] [id number] Left 1 Implanted SYNTHES 4.5mm 8mm 38mm Self Tap Large Hexagonal Socket Cortex Screw Bone 214.838 - [id number] SYNTHES 4.5mm 8mm 38mm Self Tap Large Hexagonal Socket Cortex Screw Bone 214.838 Synthes Left 1 Implanted SYNTHES 4.5mm 8mm 40mm Self Tap Large Hexagonal Socket Cortex Screw Bone 214.840 - [id number] Screw SYNTHES 4.5mm 8mm 40mm Self Tap Large Hexagonal Socket Cortex Screw Bone 214.840 Synthes Left 1 Implanted SYNTHES Dhs Dcs 36mm Compression Hip Condylar Screw Bone Stainless Steel 280.990 - [id number] SYNTHES Dhs Dcs 36mm Compression Hip Condylar Screw Bone Stainless Steel 280.990 Synthes Left 1 Implanted SYNTHES 1.7mm 750mm Crimp Cerclage Cable Orthopedic Stainless Steel 298.801.01S - [id number] SYNTHES 1.7mm 750mm Crimp Cerclage Cable Orthopedic Stainless Steel 298.801.01S [employer] [id number] Left 1 Implanted SYNTHES Dhs Dcs 12mm 8mm 2.7mm 90mm 22mm Lag Cannulated Hip Condylar 280.290 - [id number] SYNTHES Dhs Dcs 12mm 8mm 2.7mm 90mm 22mm Lag Cannulated Hip Condylar 280.290 Synthes Left 1 Implanted Blood/Blood Products Transfused: 0 mls Complications: None Condition on Discharge from the operating room was stable Mahogany Zamudio MD Date: 12/09/2023 Time: 5:24 PM Cosigned by Homer Villalobos MD at 12/09/2023 5:35 PM CDT * Initial Assessments - Yoly Sanford RN - 12/09/2023 1:33 PM CDT CM Initial Assessment Interview Note Information Obtained From: Patient (12/09/231330) Admission Source: from home Impression: 83 yr. Old female fell at home. Suffered a L. Femur fracture. Surgically repaired Plan Includes: Discharge to home when medically stable. Primary Source of Transportation: Does the patient need discharge transport arranged?: No (12/09/231330) Health Insurance Coverage: [facility] [employer] Medicare Prescription Coverage: yes Pharmacy: [facility]/pharmacy #[id number] [place] [id number] [place] [id number] [id number] Primary Care Provider: Cuba Larsen MD Prior to Admission: Functional Status: Independent with ADLs Primary Caregiver: Self Support System: Family members Home Care Services: No Outpatient Services: No Durable Medical Equipment: None Living Arrangements: Alone Type of Residence: Private residence Steps in home?: Yes, Outside of home Number of steps outside: 5 steps Medication management: Independent (12/09/231330) Potential discharge needs include: manager transplant will follow for post acute discharge needs such as therapy, nursing, medical equipment or agency referrals as indicated by the care team. OP Services:no Dialysis: no Behavioral Health Services: Behavioral Health Services: No (12/09/231330) Anticipated Level of Care: unsure Patient expects to be Discharged to: Additional Information: Confirmed address and phone to facesheet. Patient independent in ADLS. Family for assist post - hospitalization/DC needs. Patient's Identified Problem/Goal Problem: Ensure acute medical needs are met and that patient has a safe discharge plan. Goal: Secure a discharge plan that patient/family are agreeable with and ensure patient has continuum of care. Case management will follow for discharge planning and send referrals as needed. Goals include: To assure continuity of care, To maximize coping skills, To assure patient is in a safe environment and To assure access to community resources. Plan includes: 1. Collaboration with Patient, Provider, Direct Care Nurse, Drug Safety Data Management Specialist, and other members of theHealth Care Team to assure needed interventions completed. 2. Return patient to optimal level of self-care post discharge. 3. Water Attendant will follow for Discharge Planning - interventions as needed 4. Anticipated level of care at discharge 5. Planned Discharge Disposition Yoly Sanford RN * Assessment & Plan Note - Emy Sanchez NP - 12/09/2023 11:49 AM CDT Associated Problem(s): DNR (do not resuscitate) Patient wishes to be DNR after OR * Assessment & Plan Note - Emy Sanchez NP - 12/09/2023 11:48 AM CDT Associated Problem(s): Advanced care planning/counseling discussion Discussed with patient at bedside regarding code status. She does not have paperwork with her, however she would like to remain DNR/DNI after surgery today. Spoke with brother, Shahram nathaniel 12/08 who also supported patients decision for DNR after surgery,order changed to reflect DNR POD 1 * Assessment & Plan Note - Emy Sanchez NP - 12/09/2023 8:53 AM CDT Associated Problem(s): Acquired hypothyroidism Continue home levothyroxine * Assessment & Plan Note - Emy Sanchez NP - 12/09/2023 7:57 AM CDT Associated Problem(s): Type 2 diabetes mellitus without complications (CMS/HCC) (HCC) Continue DM diet with SSI Holding home glipizide and metformin A1C 6.5 * Assessment & Plan Note - Emy Sanchez NP - 12/09/2023 6:13 AM CDT Associated Problem(s): Discharge planning issues 12/08 OR with orthopedics 12/09 code stroke this morning followed by ACT secondary to hypotension. Patient transferred to OU for closer observation 12/10 bedside ECHO 12/11 Hyperkalemia protocol 12/12 required 1u PRBC 12/13 improved, likely ready for discharge tomorrow 12/14 Patient is medically stable for discharge, SW/CM updated. Discharge pending facility acceptance 12/15 Hgb stable at 7.7 (7.7), DC to [facility] Treatment Plan: done 12/15 * Assessment & Plan Note - Emy Sanchez NP - 12/09/2023 6:13 AM CDT Associated Problem(s): Encounter for medication review Medications reviewed and updated in admissions tab Home pharmacy [facility] * Assessment & Plan Note - Emy Sanchez NP - 12/09/2023 6:12 AM CDT Associated Problem(s): Essential hypertension home medications Coreg, cozaar, spironolactone 12/09 holding [...] controlled, continue Coreg 25 mg BID PO * Assessment & Plan Note - Emy Sanchez NP - 12/09/2023 6:11 AM CDT Associated Problem(s): WAI (generalized anxiety disorder) Home xanax, continued PRN * Assessment & Plan Note - Emy Sanchez NP - 12/09/2023 6:10 AM CDT Associated Problem(s): Paroxysmal atrial fibrillation (CMS/HCC) (HCC) Holding home eliquis and Carvedilol 12/10 A fib controlled HR 100s, restarting Coreg 12.5 mg PO BID (home dose 50 mg PO BID) CTM 12/11 HR 90s a fib rate controlled, continue Coreg 25 mg PO BID 12/13 remains rate controlled 90s, continue Coreg 25 mg PO BID Follow up scheduled: [facility] 01/31 at 1:20 * Plan of Care - Christofer Robison - 12/09/2023 2:04 AM CDT Goals: Clinical Goals for the Shift: Finish admission Health Care Law Specialist Patient Centered Goal for Treatment: Discharge Summary: Patient admission completed. Patient sleeping with unlabored, even breathing with oxygen via nasal cannula being administered at 2 liters due to a history of AYAD. * Assessment & Plan Note - Alia Ibarra MD - 12/08/2023 11:42 PM CDTAssociated Problem(s): Closed nondisplaced intertrochanteric fracture of left femur (HCC) - ortho consult - 12/09 OR for ORIF of L intertrochanteric femur fx Plan: Follow up with Dr. Villalobos on 01/17 at 2:15, Weightbearing as tolerated, Post op DVT prophylaxis- resume home Eliquis at discharged -[facility], started Vitamin D Resume home anticoagulation at discharge * ED Procedure Note - Dick Nova MD - 12/08/2023 3:27 PM CDT Associated Order(s): Critical Care Procedure Critical Care Performed by: Dick Nova MD Authorized by: Adonay Douglas MD Critical care provider statement: As reflected in the history, physical exam, orders, notes, and/or MDM, I was personally present while the patient was critically ill and provided critical care services for 35 minutes, excluding timeinvolved in separately billable procedures. Critical care was necessary to treat or prevent imminent or life- threatening deterioration of the following condition(s): severe long-bone fracture Critical care was time spent by me providing the following: continuous telemetry, continuous pulse oximetry and interpretation of bedside monitors, imaging, and arterial/venous lab draws acute fracture care I provided emergent necessary critical care medicine services to this patient. I ordered and reviewed test results and/or imaging studies. I spent time discussing the management of this critically ill patient with consultants and the medical staff. I spent time discussing the management and therapeutic options for this critically ill patient with the patient themselves or with the appropriate designated surrogate decision-maker. I spent time documenting in the medical record. Dick Nova MD 12/08/23 1527 * ED Re-evaluation Note - Whitney Lovelace MD - 12/08/2023 2:43 PM CDT ED Re-evaluation TRANSITION OF CARE: I, Whitney Lovelace MD, am taking signout. I have reviewed all pertinent vital signs, allergies, and history available in the chart. Summary: 83 y.o. female uncomfortable appearing 83-year-old female presenting to emergency department via EMS with complaints of left hip pain. Found to have L surgical neck femur fx. [facility], ortho following Pending: pending ortho recs, possible fascia iliaca block Dispo: anticipate admission to [facility] ED Course as of 12/08/232220 Time: 12/07 1124 Comment: ED attending-Cecile. 83 female history of AYAD, hypertension, ED, AFib. Mechanical fall walking on grass carrying a cake to a when she slipped fell on her left has left hip and left shoulder pain. Did not hit head no LOC. per EMS given some intranasal fentanyl 50 mics for pain patient laying on her left side hip flexed knees bent not wanting to straighten out. No complaint of chest pain, headache, shortness of breath or palpitations prior to the fall. No prior hip fracture on that side. Primary concern is left hip fracture possible shoulder injury she is moving the the left shoulder using the arm side if less concern for fracture there. Will not straight legs. Plan is IV some additional pain meds and slowly turn rotator drawer more neutral position for x-rays By: Steve Huber MD Time: 12/07 1215 Comment: Patient is over an x-ray. Went over to Radiology to help straighten out her leg sick to get echo images after her pain meds. She has left surgical neck fracture. Will need to notify ortho and trauma. By: Steve Huber MD Time: 12/07 1346 Value: XR Femur Left 2 or More Views Comment: IMPRESSION: 1. Displaced extra articular intertrochanteric fracture of the proximal left femur with suggestion of comminution. By: Dick Nova MD Time: 12/07 1400 Comment: Received pt in s/o. 83yof presented as fall on grass, landed on L side, c/o pain to L hip and shoulder, suspected L femoral neck fx on pelvis film, call out to ortho and [facility], will admit. By: Dick Nova MD Time: 12/07 7315 Comment: Discussed FICB with ortho, they are planning for traction view film and would like to discuss with attending to confirm. Pt is on Eliquis but this may only be a relative contraindication--can discuss with pt if receive the green light from Ortho. By: Dick Nova MD Time: 12/07 1554 Comment: Pt reevaluated after signout. Found resting comfortably in bed, states pain is controlled,denies any complaints. Pending ortho recs By: Whitney Lovelace MD Time: 12/07 170 Comment: Ortho consulted anesthesia. Recommend against fascia iliaca block due to anticoagulation By: Whitney Lovelace MD Time: 12/07 1830 Comment: Touched base with [facility]. They have not yet staffed the pt. By: Whitney Lovelace MD Time: 12/07 1838 Comment: Teach LOTTIE: 83 y/o female afib on eliquis. Left hip fx. Ortho said no to block because she is on anticoagulation. Anticipate admit to [facility]. Pending [facility] acceptance. By: Joseph Ashley MD Time: 12/07 1906 Comment: Ordered additional XRs and CT per ortho for preop planning By: Whitney Lovelace MD Time: 12/08 2219 Comment: Pt requesting pain meds - placed order. Notified by RN of BP 160/110, feel likely related to pain. Will give pain meds By: Whitney Lovelace MD Robertson, Erika Marie, MD 12/08/23 1505 Whitney Lovelace MD 12/08/232030 documented in this encounter Plan of Treatment Pending Results Name Type Priority Associated Diagnoses Date /Time Type and screen Lab Timed 8:20 AM CDT Scheduled Orders Name Type Priority Associated Diagnoses Orde r Schedule ECG 12 lead ECG STAT As needed unt il discontinued starting 12/08/2023 Type and screen Lab Routine Once for 1 Occurrences starting 12/16/2023 until 12/16/2023 Basic metabolic panel Lab Routine Hyponatremia Expected: 12/23/2023, Expires: 12/15/2024 documented as of this encounter Procedures Procedure Name Priority Date/Time Associated Diagnosis Comments POCT GLUCOSE DEVICE Routine 12/16/2023 5:11 PM CDT POCT GLUCOSE DEVICE Routine 12/16/2023 11:18 AM CDT COVID-19 CORONAVIRUS RNA Routine 12/16/2023 10:15 AM CDT TYPE AND SCREEN Timed 12/16/2023 9:21 AM CDT CBC WITHOUT DIFFERENTIAL Timed 12/16/2023 8:20 AM CDT MISLABLED TEST Routine 12/16/2023 8:14 AM CDT POCT GLUCOSE DEVICE Routine 12/16/2023 7:50 AM CDT POTASSIUM, WHOLE BLOOD Routine 11:54 PM CDT POCT GLUCOSE DEVICE Routine 12/15/2023 9:08 PM CDT EGFR Routine 12/15/2023 8:48 PM CDT CBC WITHOUT DIFFERENTIAL Routine 12/15/2023 8:48 PM CDT PHOSPHORUS Routine 12/15/2023 8:48 PM CDT MAGNESIUM Routine 12/15/2023 8:48 PM CDT BASIC METABOLIC PANEL Routine 12/15/2023 8:48 PM CDT POCT GLUCOSE DEVICE Routine 12/15/2023 5:43 PM CDT POCT GLUCOSE DEVICE Routine 12/15/2023 11:37 AM CDT POCT GLUCOSE DEVICE Routine 12/15/2023 7:47 AM CDT POTASSIUM, WHOLE BLOOD STAT 12:25 AM CDT EGFR Routine 12/14/2023 9:51 PM CDT POCT GLUCOSE DEVICE Routine 12/14/2023 9:51 PM CDT CBC WITHOUT DIFFERENTIAL Routine 12/14/2023 9:51 PM CDT PHOSPHORUS Routine 12/14/2023 9:51 PM CDT MAGNESIUM Routine 12/14/2023 9:51 PM CDT BASIC METABOLIC PANEL Routine 12/14/2023 9:51 PM CDT POCT GLUCOSE DEVICE Routine 12/14/2023 5:25 PM CDT POCT GLUCOSE DEVICE Routine 12/14/2023 11:51 AM CDT POCT GLUCOSE DEVICE Routine 12/14/2023 8:16 AM CDT CBC WITHOUT DIFFERENTIAL Routine 12/14/2023 3:20 AM CDT POCT GLUCOSE DEVICE Routine 12/14/2023 3:12 AM CDT POCT GLUCOSE DEVICE Routine 12/13/2023 11:29 PM CDT TRANSFUSE RED BLOOD CELLS Timed 12/13/2023 11:20 PM CDT POTASSIUM, WHOLE BLOOD STAT 10:32 PM CDT PREPARE RBC Timed 12/13/2023 9:45 PM CDT EGFR Routine 12/13/2023 9:00 PM CDT CBC WITHOUT DIFFERENTIAL Routine 12/13/2023 9:00 PM CDT PHOSPHORUS Routine 12/13/2023 9:00 PM CDT MAGNESIUM Routine 12/13/2023 9:00 PM CDT BASIC METABOLIC PANEL Routine 12/13/2023 9:00 PM CDT POCT GLUCOSE DEVICE Routine 12/13/2023 8:16 PM CDT POCT GLUCOSE DEVICE Routine 12/13/2023 4:15 PM CDT EGFR STAT 12/13/2023 1:33 PM CDT DIFFERENTIAL AUTO STAT 12/13/2023 1:33 PM CDT CBC WITH AUTO DIFFERENTIAL STAT 12/13/2023 1:33 PM CDT BASIC METABOLIC PANEL STAT 12/13/2023 1:33 PM CDT POCT GLUCOSE DEVICE Routine 12/13/2023 12:14 PM CDT POCT GLUCOSE DEVICE Routine 12/13/2023 8:25 AM CDT TRANSFUSE RED BLOOD CELLS Timed 12/13/2023 7:00 AM CDT ECG 12-LEAD Routine 12/13/2023 5:50 AM CDT POTASSIUM, WHOLE BLOOD Routine 5:50 AM CDT TYPE AND SCREEN Timed 12/13/2023 4:58 AM CDT POCT GLUCOSE DEVICE Routine 12/13/2023 4:55 AM CDT PREPARE RBC Timed 12/13/2023 4:19 AM CDT EGFR Routine 12/13/2023 3:08 AM CDT CBC WITHOUT DIFFERENTIAL Routine 12/13/2023 3:08 AM CDT PHOSPHORUS Routine 12/13/2023 3:08 AM CDT MAGNESIUM Routine 12/13/2023 3:08 AM CDT BASIC METABOLIC PANEL Routine 12/13/2023 3:08 AM CDT EGFR Routine 12/13/2023 2:11 AM CDT CBC WITHOUT DIFFERENTIAL Routine 12/13/2023 2:11 AM CDT PHOSPHORUS Routine 12/13/2023 2:11 AM CDT MAGNESIUM Routine 12/13/2023 2:11 AM CDT BASIC METABOLIC PANEL Routine 12/13/2023 2:11 AM CDT POCT GLUCOSE DEVICE Routine 12/12/2023 10:56 PM CDT POCT GLUCOSE DEVICE Routine 12/12/2023 7:51 PM CDT POCT GLUCOSE DEVICE Routine 12/12/2023 4:42 PM CDT POTASSIUM LEVEL Timed 12/12/2023 2:30 PM CDT POCT GLUCOSE DEVICE Routine 12/12/2023 12:22 PM CDT POTASSIUM, WHOLE BLOOD Routine 10:50 AM CDT SODIUM, URINE, RANDOM Routine 12/12/2023 10:50 AM CDT POTASSIUM, URINE, RANDOM Routine 12/12/2023 10:50 AM CDT CHLORIDE, URINE, RANDOM Routine 12/12/2023 10:50 AM CDT POCT GLUCOSE DEVICE Routine 12/12/2023 10:36 AM CDT POCT GLUCOSE DEVICE Routine 12/12/2023 9:26 AM CDT POCT GLUCOSE DEVICE Routine 12/12/2023 9:25 AM CDT POCT GLUCOSE DEVICE Routine 12/12/2023 7:41 AM CDT POTASSIUM LEVEL Timed 12/12/2023 7:27 AM CDT ECG 12-LEAD STAT 12/12/2023 5:53 AM CDT EGFR Timed 12/12/2023 4:06 AM CDT BASIC METABOLIC PANEL Timed 12/12/2023 4:06 AM CDT POCT GLUCOSE DEVICE Routine 12/12/2023 4:01 AM CDT POCT GLUCOSE DEVICE Routine 12/11/2023 11:47 PM CDT EGFR Routine 12/11/2023 9:47 PM CDT CBC WITHOUT DIFFERENTIAL Routine 12/11/2023 9:47 PM CDT PHOSPHORUS Routine 12/11/2023 9:47 PM CDT MAGNESIUM Routine 12/11/2023 9:47 PM CDT BASIC METABOLIC PANEL Routine 12/11/2023 9:47 PM CDT POCT GLUCOSE DEVICE Routine 12/11/2023 8:51 PM CDT POCT GLUCOSE DEVICE Routine 12/11/2023 5:02 PM CDT POCT GLUCOSE DEVICE Routine 12/11/2023 12:20 PM CDT TRANSTHORACIC ECHO (TTE) COMPLETE W DOPPLER/CF W CONTRAST ED Urgent/IP Urgent 12/11/2023 10:10 AM CDT POCT GLUCOSE DEVICE Routine 12/11/2023 8:40 AM CDT POCT GLUCOSE DEVICE Routine 12/11/2023 3:44 AM CDT XR ABDOMEN AP 1 VIEW IP Routine 12/11/2023 3:04 AM CDT XR CHEST 1 VIEW IP Routine 12/11/2023 3:03 AM CDT POCT GLUCOSE DEVICE Routine 12/10/2023 11:44 PM CDT EGFR Routine 12/10/2023 9:37 PM CDT CBC WITHOUT DIFFERENTIAL Routine 12/10/2023 9:37 PM CDT PHOSPHORUS Routine 12/10/2023 9:37 PM CDT MAGNESIUM Routine 12/10/2023 9:37 PM CDT BASIC METABOLIC PANEL Routine 12/10/2023 9:37 PM CDT POCT GLUCOSE DEVICE Routine 12/10/2023 7:59 PM CDT POCT GLUCOSE DEVICE Routine 12/10/2023 4:36 PM CDT TROPONIN I HIGH-SENSITIVITY STAT 12/10/2023 1:04 PM CDT PRO B-TYPE NATRIURETIC PEPTIDE STAT 12/10/2023 1:04 PM CDT TRANSFUSE RED BLOOD CELLS Timed 12/10/2023 12:55 PM CDT POCT LACTATE - DEVICE Routine 12/10/2023 12:44 PM CDT PREPARE RBC Timed 12/10/2023 12:24 PM CDT CBC WITHOUT DIFFERENTIAL STAT 12/10/2023 12:17 PM CDT POCT GLUCOSE DEVICE Routine 12/10/2023 12:[address] STROKE PROTOCOL WO CONTRAST Critical/Life -Threatening 12/10/2023 11:16 AM CDT POCT GLUCOSE DEVICE Routine 12/10/2023 7:39 AM CDT POCT GLUCOSE DEVICE Routine 12/10/2023 4:39 AM CDT POCT GLUCOSE DEVICE Routine 12/09/2023 11:50 PM CDT EGFR Routine 12/09/2023 10:24 PM CDT CBC WITHOUT DIFFERENTIAL Routine 12/09/2023 10:24 PM CDT PHOSPHORUS Routine 12/09/2023 10:24 PM CDT MAGNESIUM Routine 12/09/2023 10:24 PM CDT HEMOGLOBIN A1C Routine 12/09/2023 10:24 PM CDT BASIC METABOLIC PANEL Routine 12/09/2023 10:24 PM CDT XR FEMUR LEFT 2 OR MORE VIEWS ED Urgent/IP Urgent 12/09/2023 8:27 PM CDT POCT GLUCOSE DEVICE Routine 12/09/2023 5:59 PM CDT FL FLUOROSCOPY < 1 HOUR IP Routine 12/09/2023 5:04 PM CDT POCT GLUCOSE DEVICE Routine 12/09/2023 4:20 PM CDT INTRAMEDULLARY NAILING FEMUR - ANTEGRADE - INTERTROCHANTERIC 12/09/2023 3:20 PM CDT Closed nondisplaced intertrochanteric fracture of left femur, initial encounter (HCC) POCT GLUCOSE DEVICE Routine 12/09/2023 2:01 PM CDT POCT GLUCOSE DEVICE Routine 12/09/2023 11:36 AM CDT POCT GLUCOSE DEVICE Routine 12/09/2023 8:34 AM CDT URINALYSIS AND REFLEX TO MICROSCOPIC AND CULTURE STAT 12/09/2023 5:01 AM CDT URINALYSIS, MICROSCOPIC ONLY STAT 12/09/2023 5:01 AM CDT ECG 12-LEAD STAT 12/09/2023 12:15 AM CDT POCT GLUCOSE DEVICE Routine 12/09/2023 12:01 AM CDT POCT GLUCOSE DEVICE Routine 12/08/2023 8:[address] FEMUR LEFT WO CONTRAST ED 12/08/2023 8:[address] PELVIS WO CONTRAST ED 12/08/2023 8:07 PM CDT XR KNEE LEFT 4 OR MORE VIEWS ED 12/08/2023 7:33 PM CDT [facility] CRITICAL CARE ILL/INJURED PATIENT INIT 30-74 MIN Routine 12/08/2023 3:27 PM CDT XR HIP LEFT 1 VIEW ED 12/08/2023 3:01 PM CDT XR SHOULDER LEFT 2 OR MORE VIEWS ED 12/08/2023 1:51 PM CDT XR HIP LEFT 2 OR 3 VIEWS ED 12/08/2023 1:51 PM CDT XR PELVIS 1 OR 2 VIEWS ED 12:40 PM CDT XR FEMUR LEFT 2 OR MORE VIEWS ED 12/08/2023 12:40 PM CDT XR CHEST 1 VIEW ED 12/08/2023 12:40 PM CDT EGFR STAT 12/08/2023 11:35 AM CDT DIFFERENTIAL AUTO STAT 12/08/2023 11:35 AM CDT CBC WITH AUTO DIFFERENTIAL STAT 12/08/2023 11:35 AM CDT APTT STAT 12/08/2023 11:35 AM CDT PROTIME-INR STAT 12/08/2023 11:35 AM CDT TYPE AND SCREEN STAT 12/08/2023 11:35 AM CDT COMPREHENSIVE METABOLIC PANEL STAT 12/08/2023 11:35 AM CDT documented in this encounter Results * (ABNORMAL) POCT glucose (12/16/2023 5:11 PM CDT) Glucose, POC 282(H) 70 - 199 mg/dL Blood 12/16/2023 5:11 PM CDT 12/16/2023 5:11 PM CDT Kevin Corrigan MD LAB POCT ORDERABLES - DEVICE Final Result Performing Organization Address City/[facility]/ZIP Co de Phone Number [facility] [place] [address] * (ABNORMAL) POCT glucose (12/16/2023 11:18 AM CDT) Glucose, POC 286(H) 70 - 199 mg/dL Blood 12/16/2023 11:1 8 AM CDT 12/16/2023 11:18 AM CDT Result [facility] Kevin Corrigan MD LAB POCT ORDERABLES - DEVICE Final Result Performing Organization Address City/[facility]/ZIP Co de Phone Number [facility] [place] [address] * COVID-19 Coronavirus RNA Nasopharyngeal (12/16/2023 10:15 AM CDT) COVID-19 RNA Negative Negative [facility] Nasopharyngeal 12/16/2023 10 :15 AM CDT 12/16/2023 10:33 AM CDT Narrative [facility] - 12/16/2023 11:27 AM CDT Is the patient experiencing any symptoms consistent with COVID (eg. Fever, cough, shortness of breath)?->No What is the reason for testing?->Screening for post-acute care placement ??Interpretive data Testing performed by [facility] ([phone]). This test is performed using the [employer] Xpert Xpress CoV-2 plus assay. This is a real-time RT-PCR test intended for the qualitative detection of nucleic acid from the SARS-CoV-2. This assay has been cleared by the [place] Food and Drug administration. The performance characteristics have been verified by the [facility]. ??Results must be considered in the clinical context, and a negative result does not rule out infection. Interpretive data last revised 2023. Danette Causey NP LAB MICROBIOLOGY - GENE RAL ORDERABLES Final Result Performing Organization Address City/[facility]/ZIP Co de Phone Number [facility] [place] [address] [facility] * Type and screen (12/16/2023 9:21 AM CDT) Pathologist [facility] Gian, indirect Negative ABO Rh O Positive [facility] Blood 12/16/2023 9:21 AM CDT 12/16/2023 9:35 AM CDT Narrative [facility] - 12/16/2023 10:34 AM CDT Has the patient had Daratumumab or Isatuximab in the past 6 months?->Unknown Danette Causey NP LAB BLOOD BANK TEST ORD ERABLES Final Result [facility] Department [place] [address] * (ABNORMAL) CBC without differential (12/16/2023 8:20 AM CDT) Pathologist [facility] WBC 8.5 3.8 - 9.9 K/cumm Hgb 7.7(L) 11.9 - 15.5 g/dL [facility] Hct 23.4(L) 35.6 - 45.5 % [facility] Plt 237 150 - 400 K/cumm [facility] MPV 9.7 9.1 - 12.3 fL [facility] RBC 2.43(L) 3.90 - 5.20 M/cumm [facility] MCV 96.3 81.3 - 96.4 fL [facility] MCH 31.7 27.1 - 33.3 pg [facility] MCHC 32.9 32.3 - 35.7 g/dL [facility] RDW CV 15.4(H) 11.1 - 14.9 % [facility] RDW SD 52.3(H) 35.7 - 48.1 fL [facility] NRBC abs 0.06(H) 0.00 - 0.01 K/cumm [facility] Blood 12/16/2023 8:20 AM CDT 12/16/2023 8:29 AM CDT us Danette Causey NP LAB BLOOD ORDERABLES Fi nal Result [facility] Department [place] [address] * Mislabeled Test (12/16/2023 8:14 AM CDT) Location Other location Reason Label discrepancy [facility] Mislabel resolution Testing canceled [facility] Blood 12/16/2023 8:14 AM CDT 12/16/2023 8:30 AM CDT us Kevin Corrigan MD LAB BLOOD ORDERABLES F inal Result [facility] [place] [address] * POCT glucose (12/16/2023 7:50 AM CDT) Glucose, POC 176 70 - 199 mg/dL Blood 12/16/2023 7:50 AM CDT 12/16/2023 7:50 AM CDT Kevin Corrigan MD LAB POCT ORDERABLES - DEVICE Final Result Performing Organization Address [facility] de Phone Number [facility] [place] [address] * Potassium, whole blood (12/15/2023 11:54 PM CDT) [facility] Potassium, bld 4.8 3.3 - 4.9 mmol/L Blood 12/15/2023 11:5 4 PM CDT 12/16/2023 12:07 AM CDT Kevin Corrigan MD LAB BLOOD ORDERABLES F inal Result Performing Organization Address [facility] de Phone Number [facility] Department [place] [address] * (ABNORMAL) POCT glucose (12/15/2023 9:08 PM CDT) [facility] Glucose, POC 223(H) 70 - 199 mg/dL Blood 12/15/2023 9:08 PM CDT 12/15/2023 9:08 PM CDT Kevin Corriagn MD LAB POCT ORDERABLES - DEVICE Final Result Performing Organization Address [facility] de Phone Number [facility] [place] [address] * eGFR (12/15/2023 8:48 PM CDT) [facility] eGFR 89 >=60 mL/min/1. 73 m2 Comment: [...] PM CDT 12/15/2023 9:05 PM CDT Kevin Corrigan MD LAB BLOOD ORDERABLES F inal Result Performing Organization Address City/[facility] Co de Phone Number [facility] [place] [address] * Phosphorus (12/15/2023 8:48 PM CDT) Pathologist [facility] Phosphorus, pl 3.5 2.3 - 4.5 mg/dL Blood 12/15/2023 8:48 PM CDT 12/15/2023 9:05 PM CDT Kevin Corrigan MD LAB BLOOD ORDERABLES F inal Result Performing Organization Address [facility] Co de Phone Number [facility] [place] [address] * Magnesium (12/15/2023 8:48 PM CDT) Pathologist [facility] Magnesium 2.0 1.4 - 2.5 mg/dL Blood 12/15/2023 8:48 PM CDT 12/15/2023 9:05 PM CDT Kvein Corrigan MD LAB BLOOD ORDERABLES F inal Result [facility] Department [place] [address] * (ABNORMAL) Basic metabolic panel (12/15/2023 8:48 PM CDT) [facility] Sodium 129(L) 135 - 145 mmol/L Potassium, pl 5.3(H) 3.3 - 4.9 mmol/L [facility] Chloride 95(L) 97 - 110 mmol/L [facility] CO2 27 22 - 32 mmol/L [facility] Anion gap 7 2 - 15 mmol/L [facility] BUN 26(H) 6 - 25 mg/dL [facility] Creatinine 0.62 0.60 - 1.10 mg/dL [facility] Glucose 214(H) 70 - 199 mg/dL [facility] Comment: Interpretive Data Fasting glucose >/= [...] 2022. Calcium 9.1 8.5 - 10.3 mg/dL [facility] Blood 12/15/2023 8:48 PM CDT 12/15/2023 9:05 PM CDT Kevin Corrigan MD LAB BLOOD ORDERABLES F inal Result Performing Organization Address [facility]/ZIP Co de Phone Number [facility] Department [place] [address] * (ABNORMAL) CBC without differential (12/15/2023 8:48 PM CDT) WBC 7.8 3.8 - 9.9 K/cumm Hgb 7.7(L) 11.9 - 15.5 g/dL [facility] Hct 24.0(L) 35.6 - 45.5 % [facility] Plt 220 150 - 400 K/cumm [facility] MPV 9.6 9.1 - 12.3 fL [facility] RBC 2.51(L) 3.90 - 5.20 M/cumm [facility] MCV 95.6 81.3 - 96.4 fL [facility] MCH 30.7 27.1 - 33.3 pg [facility] MCHC 32.1(L) 32.3 - 35.7 g/dL [facility] RDW CV 15.4(H) 11.1 - 14.9 % [facility] RDW SD 51.8(H) 35.7 - 48.1 fL [facility] NRBC abs 0.08(H) 0.00 - 0.01 K/cumm [facility] Blood 12/15/2023 8:48 PM CDT 12/15/2023 9:05 PM CDT Kevin Corrigan MD LAB BLOOD ORDERABLES F inal Result [facility] Department [place] [address] * POCT glucose (12/15/2023 5:43 PM CDT) Glucose, POC 196 70 - 199 mg/dL Blood 12/15/2023 5:43 PM CDT 12/15/2023 5:43 PM CDT Kevin Corrigan MD LAB POCT ORDERABLES - DEVICE Final Result Performing Organization Address [facility] Co de Phone Number [facility] Department [place] [address] * (ABNORMAL) POCT glucose (12/15/2023 11:37 AM CDT) Glucose, POC 240(H) 70 - 199 mg/dL Blood 12/15/2023 11:3 7 AM CDT 12/15/2023 11:37 AM CDT Kevin Corrigan MD LAB POCT ORDERABLES - DEVICE Final Result Performing Organization Address [facility] de Phone Number [facility] Department [place] [address] * POCT glucose (12/15/2023 7:47 AM CDT) Glucose, POC 183 70 - 199 mg/dL Blood 12/15/2023 7:47 AM CDT 12/15/2023 7:47 AM CDT Kevin Corrigan MD LAB POCT ORDERABLES - DEVICE Final Result Performing Organization Address [facility] de Phone Number [facility] [place] [address] * (ABNORMAL) Potassium, whole blood (12/15/2023 12:25 AM CDT) Potassium, bld 5.0(H) 3.3 - 4.9 mmol/L Blood 12/15/2023 12:2 5 AM CDT 12/15/2023 12:35 AM CDT Kevin Corrigan MD LAB BLOOD ORDERABLES F inal Result Performing Organization Address City/[facility] Co de Phone Number [facility] [place] [address] * eGFR (12/14/2023 9:51 PM CDT) [facility] eGFR >90 >=60 mL/min/1. 73 m2 Comment: [...] 9:51 PM CDT 12/14/2023 10:27 PM CDT us Kevin Corrigan MD LAB BLOOD ORDERABLES F inal Result [facility] Department [place] [address] * (ABNORMAL) POCT glucose (12/14/2023 9:51 PM CDT) [facility] Glucose, POC 200(H) 70 - 199 mg/dL Blood 12/14/2023 9:51 PM CDT 12/14/2023 9:51 PM CDT Result [facility] Kevin Corrigan MD LAB POCT ORDERABLES - DEVICE Final Result Performing Organization Address [facility] Co de Phone Number [facility] [place] [address] * Phosphorus (12/14/2023 9:51 PM CDT) [facility] Phosphorus, pl 2.4 2.3 - 4.5 mg/dL Blood 12/14/2023 9:51 PM CDT 12/14/2023 10:27 PM CDT Result [facility] Kevin Corrigan MD LAB BLOOD ORDERABLES F inal Result Performing Organization Address [facility] de Phone Number [facility] [place] [address] * Magnesium (12/14/2023 9:51 PM CDT) [facility] Magnesium 2.1 1.4 - 2.5 mg/dL Blood 12/14/2023 9:51 PM CDT 12/14/2023 10:27 PM CDT Result [facility] Kevin Corrigan MD LAB BLOOD ORDERABLES F inal Result Performing Organization Address [facility] de Phone Number [facility] [place] [address] * (ABNORMAL) Basic metabolic panel (12/14/2023 9:51 PM CDT) [facility] Sodium 128(L) 135 - 145 mmol/L Potassium, pl 5.3(H) 3.3 - 4.9 mmol/L [facility] Chloride 97 97 - 110 mmol/L [facility] CO2 28 22 - 32 mmol/L [facility] Anion gap 3 2 - 15 mmol/L [facility] BUN 21 6 - 25 mg/dL [facility] Creatinine 0.53(L) 0.60 - 1.10 mg/dL [facility] Glucose 180 70 - 199 mg/dL [facility] Comment: Interpretive Data Fasting glucose >/= [...] 2022. Calcium 8.9 8.5 - 10.3 mg/dL [facility] Blood 12/14/2023 9:51 PM CDT 12/14/2023 10:27 PM CDT us Kevin Corrigan MD LAB BLOOD ORDERABLES F inal Result [facility] Department [place] [address] * (ABNORMAL) CBC without differential (12/14/2023 9:51 PM CDT) Pathologist [facility] WBC 7.3 3.8 - 9.9 K/cumm Hgb 8.3(L) 11.9 - 15.5 g/dL [facility] Hct 24.9(L) 35.6 - 45.5 % [facility] Plt 177 150 - 400 K/cumm [facility] MPV 9.6 9.1 - 12.3 fL [facility] RBC 2.63(L) 3.90 - 5.20 M/cumm [facility] MCV 94.7 81.3 - 96.4 fL [facility] MCH 31.6 27.1 - 33.3 pg [facility] MCHC 33.3 32.3 - 35.7 g/dL [facility] RDW CV 15.4(H) 11.1 - 14.9 % [facility] RDW SD 51.4(H) 35.7 - 48.1 fL [facility] NRBC abs 0.04(H) 0.00 - 0.01 K/cumm [facility] Blood 12/14/2023 9:51 PM CDT 12/14/2023 10:27 PM CDT Kevin Corrigan MD LAB BLOOD ORDERABLES F inal Result Performing Organization Address City/[facility]/ZIP Co de Phone Number [facility] [place] [address] * POCT glucose (12/14/2023 5:25 PM CDT) Glucose, POC 173 70 - 199 mg/dL Blood 12/14/2023 5:25 PM CDT 12/14/2023 5:25 PM CDT Kevin Corrigan MD LAB POCT ORDERABLES - DEVICE Final Result Performing Organization Address City/[facility] Co de Phone Number [facility] [place] [address] * (ABNORMAL) POCT glucose (12/14/2023 11:51 AM CDT) Glucose, POC 267(H) 70 - 199 mg/dL Blood 12/14/2023 11:5 1 AM CDT 12/14/2023 11:51 AM CDT Kevin Corrigan MD LAB POCT ORDERABLES - DEVICE Final Result Performing Organization Address City/[facility]/ZIP Co de Phone Number [facility] [place] [address] * (ABNORMAL) POCT glucose (12/14/2023 8:16 AM CDT) Pathologist [facility] Glucose, POC 200(H) 70 - 199 mg/dL Blood 12/14/2023 8:16 AM CDT 12/14/2023 8:16 AM CDT Kevin Corrigan MD LAB POCT ORDERABLES - DEVICE Final Result [facility] [place] [address] * (ABNORMAL) CBC without differential (12/14/2023 3:20 AM CDT) [facility] WBC 7.5 3.8 - 9.9 K/cumm Hgb 8.1(L) 11.9 - 15.5 g/dL [facility] Hct 24.8(L) 35.6 - 45.5 % [facility] Plt 170 150 - 400 K/cumm [facility] MPV 10.1 9.1 - 12.3 fL [facility] RBC 2.63(L) 3.90 - 5.20 M/cumm [facility] MCV 94.3 81.3 - 96.4 fL [facility] MCH 30.8 27.1 - 33.3 pg [facility] MCHC 32.7 32.3 - 35.7 g/dL [facility] RDW CV 15.0(H) 11.1 - 14.9 % [facility] RDW SD 50.9(H) 35.7 - 48.1 fL [facility] NRBC abs 0.02(H) 0.00 - 0.01 K/cumm [facility] Blood 12/14/2023 3:20 AM CDT 12/14/2023 4:09 AM CDT Narrative [facility] - 12/14/2023 4:16 AM CDT 1 hour after transfusion of red blood cells is complete Kevin Corrigan MD LAB BLOOD ORDERABLES F inal Result Performing Organization Address City/[facility] [place] [address] * POCT glucose (12/14/2023 3:12 AM CDT) Glucose, POC 170 70 - 199 mg/dL Blood 12/14/2023 3:12 AM CDT 12/14/2023 3:12 AM CDT Kevin Corrigan MD LAB POCT ORDERABLES - DEVICE Final Result Performing Organization Address [facility] de Phone Number [facility] [place] [address] * Transfuse RBC (12/14/2023 2:21 AM CDT) Blood Kevin Corrigan MD BLOOD TRANSFUSION ORDE RABLES Final Result Performing Organization Address [facility] [place] [address] * Transfuse RBC: 1 Units (12/14/2023 2:21 AM CDT) Blood Kevin Corrigan MD BLOOD TRANSFUSION ORDE RABLES Final Result * POCT glucose (12/13/2023 11:29 PM CDT) Glucose, POC 185 70 - 199 mg/dL Blood 12/13/2023 11:2 9 PM CDT 12/13/2023 11:29 PM CDT Kevin Corrigan MD LAB POCT ORDERABLES - DEVICE Final Result Performing Organization Address City/[facility] Co de Phone Number [facility] [place] [address] * (ABNORMAL) Potassium, whole blood (12/13/2023 10:32 PM CDT) [facility] Potassium, bld 5.1(H) 3.3 - 4.9 mmol/L Blood 12/13/2023 10:3 2 PM CDT 12/13/2023 10:45 PM CDT Kevin Corrigan MD LAB BLOOD ORDERABLES F inal Result Performing Organization Address [facility]/[place] [address] * Prepare RBC: 1 Units (12/13/2023 9:45 PM CDT) [facility] Product code [id number] Unit Number [id number] [facility] Product Blood Type OPOS [facility] Dispense Status PRESUMED TRANSFUSED [facility] Blood 12/13/2023 9:45 PM CDT 12/13/2023 9:45 PM CDT Narrative [facility] - 12/14/2023 11:10 AM CDT Are special requirements needed? (All products are leukoreduced and CMV- safe)- >No Date required:-[id number] LRRBC # of [id number] Reasons:-Hgb <7 g/dL} Kevin Corrigan MD BLOOD BANK PRODUCT ORD [place]AB[place] [address] * eGFR (12/13/2023 9:00 PM CDT) [facility] eGFR 89 >=60 mL/min/1. 73 m2 Comment: [...] PM CDT 12/13/2023 9:22 PM CDT Kevin Corrigan MD LAB BLOOD ORDERABLES F inal Result Performing Organization Address City/[facility]/ZIP Co de Phone Number MIND[facility] [place] [address] * (ABNORMAL) Phosphorus (12/13/2023 9:00 PM CDT) Pathologist [facility] Phosphorus, pl 2.1(L) 2.3 - 4.5 mg/dL Blood 12/13/2023 9:00 PM CDT 12/13/2023 9:22 PM CDT Kevin Corrigan MD LAB BLOOD ORDERABLES F inal Result Performing Organization Address City/[facility]/ZIP Co de Phone Number MINDI [facility] [place] [address] * Magnesium (12/13/2023 9:00 PM CDT) Pathologist [facility] Magnesium 1.7 1.4 - 2.5 mg/dL Blood 12/13/2023 9:00 PM CDT 12/13/2023 9:22 PM CDT Kevin Corrigan MD LAB BLOOD ORDERABLES F inal Result [facility] [place] [address] * (ABNORMAL) Basic metabolic panel (12/13/2023 9:00 PM CDT) Pathologist [facility] Sodium 131(L) 135 - 145 mmol/L Potassium, pl 5.3(H) 3.3 - 4.9 mmol/L [facility] Chloride 101 97 - 110 mmol/L [facility] CO2 26 22 - 32 mmol/L [facility] Anion gap 4 2 - 15 mmol/L [facility] BUN 28(H) 6 - 25 mg/dL [facility] Creatinine 0.61 0.60 - 1.10 mg/dL [facility] Glucose 184 70 - 199 mg/dL [facility] Comment: Interpretive Data Fasting glucose >/= [...] 2022. Calcium 8.5 8.5 - 10.3 mg/dL [facility] Blood 12/13/2023 9:00 PM CDT 12/13/2023 9:22 PM CDT us Kevin Corrigan MD LAB BLOOD ORDERABLES F inal Result Performing Organization Address [facility]/ZIP Co de Phone Number MINDI [facility] [place] [address] * (ABNORMAL) CBC without differential (12/13/2023 9:00 PM CDT) Pathologist [facility] WBC 7.4 3.8 - 9.9 K/cumm Hgb 7.0(L) 11.9 - 15.5 g/dL [facility] Hct 21.3(L) 35.6 - 45.5 % [facility] Plt 158 150 - 400 K/cumm [facility] MPV 9.9 9.1 - 12.3 fL [facility] RBC 2.23(L) 3.90 - 5.20 M/cumm [facility] MCV 95.5 81.3 - 96.4 fL [facility] MCH 31.4 27.1 - 33.3 pg [facility] MCHC 32.9 32.3 - 35.7 g/dL [facility] RDW CV 14.9 11.1 - 14.9 % [facility] RDW SD 51.1(H) 35.7 - 48.1 fL [facility] NRBC abs 0.02(H) 0.00 - 0.01 K/cumm [facility] Blood 12/13/2023 9:00 PM CDT 12/13/2023 9:22 PM CDT Kevin Corrigan MD LAB BLOOD ORDERABLES F inal Result [facility] [place] [address] * POCT glucose (12/13/2023 8:16 PM CDT) Glucose, POC 183 70 - 199 mg/dL Blood 12/13/2023 8:16 PM CDT 12/13/2023 8:16 PM CDT Kevin Corrigan MD LAB POCT ORDERABLES - DEVICE Final Result Performing Organization Address [facility] Co de Phone Number MINDI [facility] [place] [address] * POCT glucose (12/13/2023 4:15 PM CDT) Pathologist [facility] Glucose, POC 192 70 - 199 mg/dL Blood 12/13/2023 4:15 PM CDT 12/13/2023 4:15 PM CDT Kevin Corrigan MD LAB POCT ORDERABLES - DEVICE Final Result Performing Organization Address [facility] de Phone Number [facility] [place] [address] * eGFR (12/13/2023 1:33 PM CDT) Pathologist [facility] eGFR 89 >=60 mL/min/1. 73 m2 [...] Soto NP LAB BLOOD ORDERABLES Final Result [facility] One [facility] Department [place] [address] * Differential, auto (12/13/2023 1:33 PM CDT) Neutrophil abs 5.1 1.5 - 6.5 K/cumm Imm gran abs 0.1 0.0 - 0.1 K/cumm [facility] Lymphocyte abs 1.3 0.8 - 3.3 K/cumm [facility] Monocyte abs 0.6 0.2 - 0.8 K/cumm [facility] Eosinophil abs 0.0 0.0 - 0.5 K/cumm [facility] Basophil abs 0.0 0.0 - 0.1 K/cumm [facility] Neutrophil pct 71.9 % [facility] Comment: Interpretive Data Percent cell count reference ranges are not reported, since discordance with absolute values may lead to misinterpretation of CBC data. Current Interpretive Data was last revised on 2017. Imm gran pct 0.7 % [facility] Comment: Interpretive Data Percent cell count reference ranges are not reported, since discordance with absolute values may lead to misinterpretation of CBC data. Current Interpretive Data was last revised on 2017. Lymphocyte pct 19.0 % [facility] Comment: Interpretive Data Percent cell count reference ranges are not reported, since discordance with absolute values may lead to misinterpretation of CBC data. Current Interpretive Data was last revised on 2017. Monocyte pct 7.8 % [facility] Comment: Interpretive Data Percent cell count reference ranges are not reported, since discordance with absolute values may lead to misinterpretation of CBC data. Current Interpretive Data was last revised on 2017. Eosinophil pct 0.3 % [facility] Comment: Interpretive Data Percent cell count reference ranges are not reported, since discordance with absolute values may lead to misinterpretation of CBC data. Current Interpretive Data was last revised on 2017. Basophil pct 0.3 % [facility] Comment: Interpretive Data Percent cell count reference ranges are not reported, since discordance with absolute values may lead to misinterpretation of CBC data. Current Interpretive Data was last revised on 2017. Blood 12/13/2023 1:33 PM CDT 12/13/2023 1:49 PM CDT Parris Soto NP LAB BLOOD ORDERABLES Final Result [facility] One [facility] Department [place] [address] * (ABNORMAL) Basic metabolic panel (12/13/2023 1:33 PM CDT) Sodium 132(L) 135 - 145 mmol/L Potassium, pl 5.0(H) 3.3 - 4.9 mmol/L [facility] Chloride 97 97 - 110 mmol/L [facility] CO2 26 22 - 32 mmol/L [facility] Anion gap 9 2 - 15 mmol/L [facility] BUN 31(H) 6 - 25 mg/dL [facility] Creatinine 0.63 0.60 - 1.10 mg/dL [facility] Glucose 207(H) 70 - 199 mg/dL [facility] Comment: Interpretive Data Fasting glucose >/= [...] classification and Diagnosis of Diabetes Diabetes Care 2022; 46: S19-S40. Current interpretive data was last revised 2022. Calcium 8.6 8.5 - 10.3 mg/dL [facility] Blood 12/13/2023 1:33 PM CDT 12/13/2023 1:49 PM CDT Parris Soto NP LAB BLOOD ORDERABLES Final Result Performing Organization Address City/[facility]/ZIP Co de Phone Number [facility] [place] [address] * (ABNORMAL) CBC with auto differential (12/13/2023 1:33 PM CDT) [facility] WBC 7.1 3.8 - 9.9 K/cumm Hgb 7.1(L) 11.9 - 15.5 g/dL [facility] Hct 21.9(L) 35.6 - 45.5 % [facility] Plt 166 150 - 400 K/cumm [facility] MPV 9.8 9.1 - 12.3 fL [facility] RBC 2.26(L) 3.90 - 5.20 M/cumm [facility] MCV 96.9(H) 81.3 - 96.4 fL [facility] MCH 31.4 27.1 - 33.3 pg [facility] MCHC 32.4 32.3 - 35.7 g/dL [facility] RDW CV 14.9 11.1 - 14.9 % [facility] RDW SD 52.4(H) 35.7 - 48.1 fL [facility] NRBC abs 0.02(H) 0.00 - 0.01 K/cumm [facility] Blood 12/13/2023 1:33 PM CDT 12/13/2023 1:49 PM CDT Parris Soto NP LAB BLOOD ORDERABLES Final Result Performing Organization Address City/[facility]/ZIP Co de Phone Number [facility] [place] [address] * (ABNORMAL) POCT glucose (12/13/2023 12:14 PM CDT) Glucose, POC 212(H) 70 - 199 mg/dL Blood 12/13/2023 12:1 4 PM CDT 12/13/2023 12:14 PM CDT Kevin Corrigan MD LAB POCT ORDERABLES - DEVICE Final Result Performing Organization Address City/[facility] Co de Phone Number [facility] [place] [address] * Transfuse RBC (12/13/2023 9:49 AM CDT) Blood Kevin Corrigan MD BLOOD TRANSFUSION ORDE RABLES Final Result Performing Organization Address [facility] Co de Phone Number [facility] [place] [address] * Transfuse RBC: 1 Units (12/13/2023 9:49 AM CDT) Blood Kevin Corrigan MD BLOOD TRANSFUSION ORDE RABLES Final Result * POCT glucose (12/13/2023 8:25 AM CDT) Glucose, POC 175 70 - 199 mg/dL Blood 12/13/2023 8:25 AM CDT 12/13/2023 8:25 AM CDT Kevin Corrigan MD LAB POCT ORDERABLES - DEVICE Final Result Performing Organization Address City/[facility] Co de Phone Number [facility] [place] [address] * ECG 12 lead (12/13/2023 5:50 AM CDT) Ventricular Rate EKG/Min 119 BPM [facility] Atrial Rate 44 BPM [facility] QRS-Interval (MSEC) 88 ms [facility] QT-Interval (MSEC) 318 ms [facility] QTc 447 ms [facility] R [place] 29 degrees [facility] T [place] -29 degrees [facility] Diagnosis Atrial fibrillation with rapid ventricular response Cannot rule out Inferior infarct , age undetermined Abnormal ECG When compared with ECG of 12-DEC-2023 05:53, ST elevation now present in Inferior leads Confirmed by GREGORY CLINE M.D ([id number]) on 12/14/2023 12:31:24 PM [facility] 12/13/2023 5:50 AM CDT 12/14/2023 12:31 PM CDT Kevin Corrigan MD ECG ORDERABLES Final Result Performing Organization Address City/[facility]/ZIP Co de Phone Number [facility] * (ABNORMAL) Potassium, whole blood (12/13/2023 5:50 AM CDT) Potassium, bld 5.0(H) 3.3 - 4.9 mmol/L Blood 12/13/2023 5:50 AM CDT 12/13/2023 5:56 AM CDT Alia Ibarra MD LAB BLOOD ORDERABLES Final Resul t Performing Organization Address City/[facility]/ZIP Co de Phone Number [facility] Department [place] [address] * Type and screen (12/13/2023 4:58 AM CDT) ABO Rh O Positive Gian, indirect Negative [facility] Blood 12/13/2023 4:58 AM CDT 12/13/2023 5:12 AM CDT Narrative [facility] - 12/13/2023 6:03 AM CDT Has the patient had Daratumumab or Isatuximab in the past 6 months?->Unknown Kevin Corrigan MD LAB BLOOD BANK TEST OR DERABLES Final Result Performing Organization Address [facility] Co de Phone Number [facility] [place] [address] * POCT glucose (12/13/2023 4:55 AM CDT) [facility] Glucose, POC 194 70 - 199 mg/dL Blood 12/13/2023 4:55 AM CDT 12/13/2023 4:55 AM CDT Kevin Corrigan MD LAB POCT ORDERABLES - DEVICE Final Result Performing Organization Address [facility] de Phone Number [facility] [place] [place] [address] * Prepare RBC: 1 Units (12/13/2023 4:19 AM CDT) [facility] Product code [id number] Unit Number [id number] [facility] Product Blood Type OPOS [facility] Dispense Status PRESUMED TRANSFUSED [facility] Blood 12/13/2023 4:19 AM CDT 12/13/2023 4:21 AM CDT Narrative [facility] - 12/14/2023 11:27 AM CDT Are special requirements needed? (All products are leukoreduced and CMV- safe)- >No Date required:-[id number] LRRBC # of [id number] Reasons:-Hgb <7 g/dL} Kevin Corrigan MD BLOOD BANK PRODUCT ORD ERABLES Final Result Performing Organization Address [facility] Co de Phone Number [facility] [place] [address] * eGFR (12/13/2023 3:08 AM CDT) [facility] eGFR 89 >=60 mL/min/1. 73 m2 Comment: [...] ORDERABLES Final Resul t Performing Organization Address [facility] de Phone Number [facility] One [facility] Department [place] [address] * (ABNORMAL) Phosphorus (12/13/2023 3:08 AM CDT) Phosphorus, pl 1.5(L) 2.3 - 4.5 mg/dL Blood 12/13/2023 3:08 AM CDT 12/13/2023 3:29 AM CDT Alia Ibarra MD LAB BLOOD ORDERABLES Final Resul t Performing Organization Address City/[facility]/ZIP Co de Phone Number [facility] Department [place] [address] * Magnesium (12/13/2023 3:08 AM CDT) [facility] Magnesium 1.8 1.4 - 2.5 mg/dL Blood 12/13/2023 3:08 AM CDT 12/13/2023 3:29 AM CDT us Alia Ibarra MD LAB BLOOD ORDERABLES Final Resul t [facility] [place] [address] * (ABNORMAL) CBC without differential (12/13/2023 3:08 AM CDT) [facility] WBC 7.2 3.8 - 9.9 K/cumm Hgb 6.2(C) 11.9 - 15.5 g/dL [facility] Comment:Consistent with prev ious results Hct 19.4(L) 35.6 - 45.5 % [facility] Plt 168 150 - 400 K/cumm [facility] MPV 10.6 9.1 - 12.3 fL [facility] RBC 2.00(L) 3.90 - 5.20 M/cumm [facility] MCV 97.0(H) 81.3 - 96.4 fL [facility] MCH 31.0 27.1 - 33.3 pg [facility] MCHC 32.0(L) 32.3 - 35.7 g/dL [facility] RDW CV 14.8 11.1 - 14.9 % [facility] RDW SD 51.5(H) 35.7 - 48.1 fL [facility] NRBC abs 0.00 0.00 - 0.01 K/cumm [facility] Blood 12/13/2023 3:08 AM CDT 12/13/2023 3:30 AM CDT us Alia Ibarra MD LAB BLOOD ORDERABLES Final Resul t [facility] Department [place] [address] * (ABNORMAL) Basic metabolic panel (12/13/2023 3:08 AM CDT) Sodium 136 135 - 145 mmol/L Potassium, pl 5.4(H) 3.3 - 4.9 mmol/L [facility] Chloride 102 97 - 110 mmol/L [facility] CO2 28 22 - 32 mmol/L [facility] Anion gap 6 2 - 15 mmol/L [facility] BUN 28(H) 6 - 25 mg/dL [facility] Creatinine 0.63 0.60 - 1.10 mg/dL [facility] Glucose 168 70 - 199 mg/dL [facility] Comment: Interpretive Data Fasting glucose >/= [...] 2022. Calcium 8.7 8.5 - 10.3 mg/dL [facility] Blood 12/13/2023 3:08 AM CDT 12/13/2023 3:29 AM CDT us Alia Ibarra MD LAB BLOOD ORDERABLES Final Resul t Performing Organization Address [facility]/ZIP Co de Phone Number [facility] Department [place] [address] * eGFR (12/13/2023 2:11 AM CDT) eGFR [...] CDT 12/13/2023 2:25 AM CDT us Kevin Corrigan MD LAB BLOOD ORDERABLES F inal Result Performing Organization Address [facility] Co de Phone Number [facility] Department [place] [address] * (ABNORMAL) Phosphorus (12/13/2023 2:11 AM CDT) Phosphorus, pl 1.6(L) 2.3 - 4.5 mg/dL Blood 12/13/2023 2:11 AM CDT 12/13/2023 2:25 AM CDT Kevin Corrigan MD LAB BLOOD ORDERABLES F inal Result Performing Organization Address City/[facility] Co de Phone Number [facility] One [facility] Department [place] [address] * Magnesium (12/13/2023 2:11 AM CDT) [facility] Magnesium 2.0 1.4 - 2.5 mg/dL Blood 12/13/2023 2:11 AM CDT 12/13/2023 2:25 AM CDT Kevin Corrigan MD LAB BLOOD ORDERABLES F inal Result [facility] [place] [address] * (ABNORMAL) Basic metabolic panel (12/13/2023 2:11 AM CDT) [facility] Sodium 133(L) 135 - 145 mmol/L Potassium, pl 5.3(H) 3.3 - 4.9 mmol/L [facility] Chloride 102 97 - 110 mmol/L [facility] CO2 29 22 - 32 mmol/L [facility] Anion gap 2 2 - 15 mmol/L [facility] BUN 29(H) 6 - 25 mg/dL [facility] Creatinine 0.63 0.60 - 1.10 mg/dL [facility] Glucose 166 70 - 199 mg/dL [facility] Comment: Interpretive Data Fasting glucose >/= [...] 2022. Calcium 8.7 8.5 - 10.3 mg/dL [facility] Blood 12/13/2023 2:11 AM CDT 12/13/2023 2:25 AM CDT us Kevin Corrigan MD LAB BLOOD ORDERABLES F inal Result [facility] One [facility] Department [place] [address] * CBC without differential (12/13/2023 2:11 AM CDT) WBC See Comment 3.8 - 9.9 Comment: Credited, collection error. Likely diluted specimen. Telephone report made to: Ren Petersen RN on 12/13/2023 02:46:51 CDT by PRAKASH . Hgb See Comment 11.9 - 15.5 [facility] Comment: Critical result called to and read back by REN PETERSEN RN on 12 13 2023 at 0242 to Yovanny Savage. Credited, collection error. Likely diluted specimen. Telephone report made to: Ren Petersen RN on 12/13/2023 02:46:51 CDT by PRAKASH . Hct See Comment 35.6 - 45.5 [facility] Comment: Credited, collection error. Likely diluted specimen. Telephone report made to: Ren Petersen RN on 12/13/2023 02:46:51 CDT by PRAKASH . Plt See Comment 150 - 400 [facility] Comment: Credited, collection error. Likely diluted specimen. Telephone report made to: Ren Petersen RN on 12/13/2023 02:46:51 CDT by PRAKASH . MPV See Comment 9.1 - 12.3 [facility] Comment: Credited, collection error. Likely diluted specimen. Telephone report made to: Ren Petersen RN on 12/13/2023 02:46:51 CDT by PRAKASH . RBC See Comment 3.90 - 5.20 [facility] Comment: Credited, collection error. Likely diluted specimen. Telephone report made to: Ren Petersen RN on 12/13/2023 02:46:51 CDT by PRAKASH . MCV See Comment 81.3 - 96.4 [facility] Comment: Credited, collection error. Likely diluted specimen. Telephone report made to: Ren Petersen RN on 12/13/2023 02:46:51 CDT by PRAKASH . [facility] See Comment 27.1 - 33.3 [facility] Comment: Credited, collection error. Likely diluted specimen. Telephone report made to: Ren Petersen RN on 12/13/2023 02:46:51 CDT by PRAKASH . MCHC See Comment 32.3 - 35.7 [facility] Comment: Credited, collection error. Likely diluted specimen. Telephone report made to: Ren Petersen RN on 12/13/2023 02:46:51 CDT by PRAKASH . RDW CV See Comment 11.1 - 14.9 [facility] Comment: Credited, collection error. Likely diluted specimen. Telephone report made to: Ren Petersen RN on 12/13/2023 02:46:51 CDT by PRAKASH . RDW SD See Comment 35.7 - 48.1 [facility] Comment: Credited, collection error. Likely diluted specimen. Telephone report made to: Ren Petersen RN on 12/13/2023 02:46:51 CDT by PRAKASH . NRBC abs See Comment 0.00 - 0.01 K/cumm [facility] Comment: Credited, collection error. Likely diluted specimen. Telephone report made to: Ren Petersen RN on 12/13/2023 02:46:51 CDT by . Blood 12/13/2023 2:11 AM CDT 12/13/2023 2:25 AM CDT Kevin Corrigan MD LAB BLOOD ORDERABLES E dited Result - Final [facility] [place] [address] * (ABNORMAL) POCT glucose (12/12/2023 10:56 PM CDT) [facility] Glucose, POC 204(H) 70 - 199 mg/dL Blood 12/12/2023 10:5 6 PM CDT 12/12/2023 10:56 PM CDT Kevin Corrigan MD LAB POCT ORDERABLES - DEVICE Final Result Performing Organization Address [facility] Co de Phone Number [facility] [place] [address] * (ABNORMAL) POCT glucose (12/12/2023 7:51 PM CDT) Glucose, POC 225(H) 70 - 199 mg/dL Blood 12/12/2023 7:51 PM CDT 12/12/2023 7:51 PM CDT Kevin Corrigan MD LAB POCT ORDERABLES - DEVICE Final Result Performing Organization Address [facility] Co de Phone Number [facility] [place] [address] * (ABNORMAL) POCT glucose (12/12/2023 4:42 PM CDT) Glucose, POC 263(H) 70 - 199 mg/dL Blood 12/12/2023 4:42 PM CDT 12/12/2023 4:42 PM CDT Kevin Corrigan MD LAB POCT ORDERABLES - DEVICE Final Result Performing Organization Address [facility] Co de Phone Number [facility] [place] [place] [address] * Potassium (12/12/2023 2:30 PM CDT) Potassium, pl 4.9 3.3 - 4.9 mmol/L Blood 12/12/2023 2:30 PM CDT 12/12/2023 2:50 PM CDT Narrative [facility] - 12/12/2023 3:12 PM CDT Provider to discontinue after two normal results. us Parris Soto NP LAB BLOOD ORDERABLES Final Result Performing Organization Address [facility] Co de Phone Number [facility] [place] [address] * (ABNORMAL) POCT glucose (12/12/2023 12:22 PM CDT) Glucose, POC 212(H) 70 - 199 mg/dL Blood 12/12/2023 12:2 2 PM CDT 12/12/2023 12:22 PM CDT us Kevin Corrigan MD LAB POCT ORDERABLES - DEVICE Final Result Performing Organization Address [facility] Co de Phone Number [facility] [place] [address] * Potassium, whole blood (12/12/2023 10:50 AM CDT) Potassium, bld 4.7 3.3 - 4.9 mmol/L Blood 12/12/2023 10:5 0 AM CDT 12/12/2023 10:57 AM CDT us Parris Soto NP LAB BLOOD ORDERABLES Final Result Performing Organization Address [facility] Co de Phone Number [facility] Department [place] [address] * Sodium, urine, random (12/12/2023 10:50 AM CDT) Sodium, ur 32 mmol/L Comment: Interpretive Data No reference range established. Current interpretive data was last revised 2018. Urine (Urine, Clean Catch) 12/12/2023 10:50 AM CDT 12/12/2023 10:57 AM CDT us Parris Soto NP LAB URINE ORDERABLES Final Result Performing Organization Address [facility] de Phone Number [facility] [place] [address] * Potassium, urine, random (12/12/2023 10:50 AM CDT) Potassium conc, ur 37.5 mmol/L Comment: Interpretive Data No reference range established. Current interpretive data was last revised 2018. Urine (Urine, Clean Catch) 12/12/2023 10:50 AM CDT 12/12/2023 10:57 AM CDT Parris Soto NP LAB URINE ORDERABLES Final Result Performing Organization Address [facility] de Phone Number [facility] [place] [address] * Chloride, urine, random (12/12/2023 10:50 AM CDT) Chloride, ur 39 mmol/L Comment: Interpretive Data No reference range established. Current interpretive data was last revised 2018. Urine (Urine, Clean Catch) 12/12/2023 10:50 AM CDT 12/12/2023 10:57 AM CDT Parris Soto NP LAB URINE ORDERABLES Final Result Performing Organization Address [facility] de Phone Number [facility] [place] [address] * (ABNORMAL) POCT glucose (12/12/2023 10:36 AM CDT) Glucose, POC 261(H) 70 - 199 mg/dL Blood 12/12/2023 10:3 6 AM CDT 12/12/2023 10:36 AM CDT Kevin Corrigan MD LAB POCT ORDERABLES - DEVICE Final Result [facility] [place] [address] * (ABNORMAL) POCT glucose (12/12/2023 9:26 AM CDT) Glucose, POC 273(H) 70 - 199 mg/dL Blood 12/12/2023 9:26 AM CDT 12/12/2023 9:26 AM CDT Kevin Corrigan MD LAB POCT ORDERABLES - DEVICE Final Result Performing Organization Address [facility] Co de Phone Number [facility] [place] [address] * (ABNORMAL) POCT glucose (12/12/2023 9:25 AM CDT) Glucose, POC 318(H) 70 - 199 mg/dL Blood 12/12/2023 9:25 AM CDT 12/12/2023 9:25 AM CDT Kevin Corrigan MD LAB POCT ORDERABLES - DEVICE Final Result Performing Organization Address City/[facility]/ZIP Co de Phone Number [facility] [place] [address] * POCT glucose (12/12/2023 7:41 AM CDT) Glucose, POC 175 70 - 199 mg/dL Blood 12/12/2023 7:41 AM CDT 12/12/2023 7:41 AM CDT Kevin Corrigan MD LAB POCT ORDERABLES - DEVICE Final Result [facility] [place] [address] * (ABNORMAL) Potassium (12/12/2023 7:27 AM CDT) Pathologist [facility] Potassium, pl 5.1(H) 3.3 - 4.9 mmol/L Blood 12/12/2023 7:27 AM CDT 12/12/2023 7:36 AM CDT Narrative [facility] - 12/12/2023 7:54 AM CDT Provider to discontinue after two normal results. us Parris Soto NP LAB BLOOD ORDERABLES Final Result [facility] One [facility] [place] [address] * ECG 12 lead (12/12/2023 5:53 AM CDT) [facility] Ventricular Rate EKG/Min 109 BPM [facility] Atrial Rate 250 BPM [facility] QRS-Interval (MSEC) 98 ms [facility] QT-Interval (MSEC) 326 ms [facility] QTc 439 ms [facility] R [place] 48 degrees [facility] T [place] -10 degrees [facility] Diagnosis Atrial fibrillation with rapid ventricular response Abnormal ECG When compared with ECG of 09-DEC-2023 00:15, Incomplete right bundle branch block is no longer Present Criteria for Inferior infarct are no longer Present Confirmed by GREGORY CLINE M.D ([id number]) on 12/12/2023 5:25:07 PM [facility] 12/12/2023 5:53 AM CDT 12/12/2023 5:25 PM CDT us Parris Soto NP ECG ORDERABLES Final Resu lt [facility] * eGFR (12/12/2023 4:06 AM CDT) Pathologist [facility] eGFR >90 >=60 mL/min/1. 73 m2 Comment: [...] interpretive data was last reviewed 2021. Blood 12/12/2023 4:06 AM CDT 12/12/2023 4:26 AM CDT us Kevin Corrigan MD LAB BLOOD ORDERABLES F inal Result [facility] One [facility] Department [place] [address] * (ABNORMAL) Basic metabolic panel (12/12/2023 4:06 AM CDT) Sodium 136 135 - 145 mmol/L Potassium, pl 5.8(H) 3.3 - 4.9 mmol/L [facility] Comment:Hemolyzed; Potassium value may be falsely elevated by as much as 0.6-1.0 mmol/L. Suggest redraw and reanalysis. Chloride 105 97 - 110 mmol/L [facility] CO2 27 22 - 32 mmol/L [facility] Anion gap 4 2 - 15 mmol/L [facility] BUN 29(H) 6 - 25 mg/dL [facility] Creatinine 0.54(L) 0.60 - 1.10 mg/dL [facility] Glucose 181 70 - 199 mg/dL [facility] Comment: Interpretive Data Fasting glucose >/= [...] 2022. Calcium 8.5 8.5 - 10.3 mg/dL [facility] Blood 12/12/2023 4:06 AM CDT 12/12/2023 4:26 AM CDT us Kevin Corrigan MD LAB BLOOD ORDERABLES F inal Result [facility] [place] [address] * (ABNORMAL) POCT glucose (12/12/2023 4:01 AM CDT) Glucose, POC 206(H) 70 - 199 mg/dL Blood 12/12/2023 4:01 AM CDT 12/12/2023 4:01 AM CDT us Kevin Corrigan MD LAB POCT ORDERABLES - DEVICE Final Result [facility] [place] [address] * POCT glucose (12/11/2023 11:47 PM CDT) Glucose, POC 193 70 - 199 mg/dL Blood 12/11/2023 11:4 7 PM CDT 12/11/2023 11:47 PM CDT us Kevin Corrigan MD LAB POCT ORDERABLES - DEVICE Final Result [facility] One [facility] [place] [address] * eGFR (12/11/2023 9:47 PM CDT) eGFR >90 >=60 mL/min/1. 73 [...] interpretive data was last reviewed 2021. Blood 12/11/2023 9:47 PM CDT 12/11/2023 10:15 PM CDT Kevin Corrigan MD LAB BLOOD ORDERABLES F inal Result Performing Organization Address City/[facility] Co de Phone Number [facility] [place] [address] * (ABNORMAL) Phosphorus (12/11/2023 9:47 PM CDT) [facility] Phosphorus, pl 1.4(L) 2.3 - 4.5 mg/dL Blood 12/11/2023 9:47 PM CDT 12/11/2023 10:15 PM CDT Kevin Corrigan MD LAB BLOOD ORDERABLES F inal Result Performing Organization Address [facility] Co de Phone Number [facility] [place] [address] * Magnesium (12/11/2023 9:47 PM CDT) [facility] Magnesium 1.9 1.4 - 2.5 mg/dL Blood 12/11/2023 9:47 PM CDT 12/11/2023 10:15 PM CDT Kevin Corrigan MD LAB BLOOD ORDERABLES F inal Result Performing Organization Address [facility] Co de Phone Number [facility] [place] [address] * (ABNORMAL) Basic metabolic panel (12/11/2023 9:47 PM CDT) [facility] Sodium 135 135 - 145 mmol/L Potassium, pl 5.4(H) 3.3 - 4.9 mmol/L [facility] Comment:Hemolyzed; Potassium value may be falsely elevated by as much as 0.6-1.0 mmol/L. Suggest redraw and reanalysis. Chloride 104 97 - 110 mmol/L [facility] CO2 26 22 - 32 mmol/L [facility] Anion gap 5 2 - 15 mmol/L [facility] BUN 27(H) 6 - 25 mg/dL [facility] Creatinine 0.55(L) 0.60 - 1.10 mg/dL [facility] Glucose 188 70 - 199 mg/dL [facility] Comment: Interpretive Data Fasting glucose >/= [...] interpretive data was last revised 2022. Calcium 8.2(L) 8.5 - 10.3 mg/dL [facility] Blood 12/11/2023 9:47 PM CDT 12/11/2023 10:15 PM CDT Kevin Corrigan MD LAB BLOOD ORDERABLES F inal Result [facility] One [facility] [place] [address] * (ABNORMAL) CBC without differential (12/11/2023 9:47 PM CDT) WBC 6.7 3.8 - 9.9 K/cumm Hgb 7.9(L) 11.9 - 15.5 g/dL [facility] Hct 24.2(L) 35.6 - 45.5 % [facility] Plt 183 150 - 400 K/cumm [facility] MPV 10.8 9.1 - 12.3 fL [facility] RBC 2.52(L) 3.90 - 5.20 M/cumm [facility] MCV 96.0 81.3 - 96.4 fL [facility] MCH 31.3 27.1 - 33.3 pg [facility] MCHC 32.6 32.3 - 35.7 g/dL [facility] RDW CV 15.5(H) 11.1 - 14.9 % [facility] RDW SD 54.4(H) 35.7 - 48.1 fL [facility] NRBC abs 0.00 0.00 - 0.01 K/cumm [facility] Blood 12/11/2023 9:47 PM CDT 12/11/2023 10:15 PM CDT Kevin Corrigan MD LAB BLOOD ORDERABLES F inal Result [facility] [place] [address] * POCT glucose (12/11/2023 8:51 PM CDT) Glucose, POC 164 70 - 199 mg/dL Blood 12/11/2023 8:51 PM CDT 12/11/2023 8:51 PM CDT us Kevin Corrigan MD LAB POCT ORDERABLES - DEVICE Final Result Performing Organization Address City/[facility]/ZIP Co de Phone Number [facility] [place] [address] * (ABNORMAL) POCT glucose (12/11/2023 5:02 PM CDT) Glucose, POC 212(H) 70 - 199 mg/dL Blood 12/11/2023 5:02 PM CDT 12/11/2023 5:02 PM CDT Kevin Corrigan MD LAB POCT ORDERABLES - DEVICE Final Result Performing Organization Address City/[facility]/ZIP Co de Phone Number [facility] [place] [address] * POCT glucose (12/11/2023 12:20 PM CDT) Glucose, POC 161 70 - 199 mg/dL Blood 12/11/2023 12:2 0 PM CDT 12/11/2023 12:20 PM CDT Kevin Corrigan MD LAB POCT ORDERABLES - DEVICE Final Result [facility] [place] [address] * TRANSTHORACIC ECHO (TTE) COMPLETE W DOPPLER/CF W CONTRAST (12/11/2023 10:10 AM CDT) LV EF 61 % CARDIOREPORT Anatomical Region Laterality Modality Ultrasound 12/11/2023 9:00 AM CDT Narrative 12/11/2023 1:11 PM CDT Patient name: Prema Pearce Date of test: 12/11/2023 Type of test: TTE w/Doppler Hospital #: [id number] Date of : 1940 (F) Special Librarian: Emile Gtz RDCS Referring Physician: KEVIN OCRRIGAN MD Contrast Agent: 0.9 ml Optison Administered, (2.1 ml wasted). Contrast Administered by: Supervised/Interpreted by: Frank Horn MD Diagnosis: Location: [facility] Reason for test: Hypotension MV Structure: Normal, ?MV Motion: Normal, ?? Mitral Annulus: moderately calcified AV Structure: tricuspid and is stenotic, ?? AV Motion: restricted Aotic root: Normal, ?TM: Normal, ?? PV: Normal Valvular Vegetations: none seen, ?Mass/Thrombi: none seen RA: Normal Measurements: ?M-Mode ?Normal ? Aotic Root: ? <3.8 ? LA: ? <3.8 ? RV: ? <2.8 ? LV(ED): ? <5.7 ? LV(ES): ? Variable ?2D Linear Normal ? Aotic Root: 3.1 cm ?<3.6 ? Ao Indexed: 1.7 cm/M2 <2.0 ? LA: ? <3.8 ? RV: ? 3.0 cm ?<4.2 ? LV(ED): ? 3.9 cm ?<5.3 ? LV(ES): ? 2.7 cm ?<3.5 ?2D Vol. ?? Normal ?Indexed ?? Indexed Normal RA: ? 380.0 ml ?205.0 ml/M ?9-33 ? LA: ? 150.0 ml ?80.9 ml/M2 ?16-34 ? RV: ? <11.6 ? LV(ED): ? 90.0 ml ?? 46-106 ?48.6 ml/M2 ?<62 ? LV(ES): ? 35.0 ml ?? 14-42 ? 18.9 ml/M2 ?<25 ?3D Vol. ? Indexed Normal LV(ED): ?<62 ? LV(ES): ?<24 ? LV EF: 61 % ?? (Normal: >=54%) ?? LV Septum: 1.0 cm ?(Normal: <0.9 cm) Wall Motion Scoring (1=Normal 2=Hypo 3=Akinetic 4=Dyskin./Aneurysm 0=Not visualized) Parasternal Long [place]:MAS=1 BAS=1 MIL=1 NIGHAT=1 Parasternal Short [place]:MAS=1 MIS=1 OK=1 MIL=1 MAL=1 MA=1 Apical 4 Chambers:=1 MIS=1 BIS=1 BAL=1 MAL=1 AL=1 AC=1 Apical 2 Chambers:AI=1 OK=1 BI=1 BA=1 MA=1 AA=1 AC=1 LV Global Longitudinal Strain: RV Global Longitudinal Strain: LV Function: Normal LV Ejection Fraction, ??(EF=54-74%) RV Function: Normal Septal Motion: Normal Pericardial Effusion: none seen Atrial Septum: Normal DOPPLER/COLOR FLOW DOPPLER RESULTS: Diastolic Function: indeterminate Tricuspid Valve: mild TV regurgitation Pulmonic Valve: Mild MN AV Regurgitation: Trace AR AV Stenosis: moderate AV Area: 1.0 cm2 AV Pressure Gradient (mmHg): Mean: 17, Peak:29 MV Regurgitation: Mild MR MV Stenosis: mild MS MV Area: ??cm2 MV Pressure Gradient (mmHg): Mean: 4 MV ERO: ??cm Regurg. Vol.: ??ml/beat Regurg. Frac.: ??% PA Pressure: ??mmHg DOPPLER/COLOR FOLOW DOPPLER COMMENTS: Trace AR, Mild MR, moderate , mild MS, mild TV regurgitation, Mild MN. Diastolic function: indeterminate CONTRAST: 0.9 ml Optison Administered, (2.1 ml wasted). SUMMARY: AF/RVR. ??Normal LV size and wall thickness with normal LV systolic function, LVEF 61%. 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 ??Normal RV size and systolic function. ??Unable to reliably assess LV and RV strain due to image quality. ??Marked LAE. ??Normal aorta and RA. ??Upper normal IVC diameter with preserved inspiratory collapse. ??Calcified AV with moderate , est. AV area 1.0 cm2, and trace AR. ??Moderate MVAC with mild calcific MS, mean gradient 4 mm Hg, and mild MR. ??Mild TR and MN. Unable to assess PA pressure. ??No pericardial effusion. ??No vegetations seen. ??Compared with 07/27/23, no significant change. Confirmed on ??12/11/2023 - 13:11:51 by Frank Horn MD By signing this report, the attending front desk agent certifies that he or she has personally supervised and interpreted the echocardiogram and has reviewed and or edited and agrees with the written comments contained within the report. Procedure Note Frank Horn MD - 12/11/2023 Patient name: Prema Pearce Date of test: 12/11/2023 Type of test: TTE w/Doppler [facility] #: 0 Date of : 1940 (F) Special Librarian: Emile Gtz RDCS Referring Physician: KEVIN CORRIGAN MD Contrast Agent: 0.9 ml Optison Administered, (2.1 ml wasted). Contrast Administered by: Supervised/Interpreted by: Frank Horn MD Diagnosis: Location: [facility] Reason for test: Hypotension MV Structure: Normal, MV Motion: Normal, Mitral Annulus: moderately calcified AV Structure: tricuspid and is stenotic, AV Motion: restricted Aotic root: Normal, TM: Normal, PV: Normal Valvular Vegetations: none seen, Mass/Thrombi: none seen RA: Normal Measurements: M-Mode Normal Aotic Root: <3.8 LA: <3.8 RV: <2.8 LV(ED): <5.7 LV(ES): Variable 2D Linear Normal Aotic Root: 3.1 cm <3.6 Ao Indexed: 1.7 cm/M2 <2.0 LA: <3.8 RV: 3.0 cm <4.2 LV(ED): 3.9 cm <5.3 LV(ES): 2.7 cm <3.5 2D Vol. Normal Indexed Indexed Normal RA: 380.0 ml 205.0 ml/M 9-33 LA: 150.0 ml 80.9 ml/M2 16-34 RV: <11.6 LV(ED): 90.0 ml 46-106 48.6 ml/M2 <62 LV(ES): 35.0 ml 14-42 18.9 ml/M2 <25 3D Vol. Indexed Normal LV(ED): <62 LV(ES): <24 LV EF: 61 % (Normal: >=54%) LV Septum: 1.0 cm (Normal: <0.9 cm) Wall Motion Scoring (1=Normal 2=Hypo 3=Akinetic 4=Dyskin./Aneurysm 0=Not visualized) Parasternal Long [place]:MAS=1 BAS=1 MIL=1 NIGHAT=1 Parasternal Short [place]:MAS=1 MIS=1 OK=1 MIL=1 MAL=1 MA=1 Apical 4 Chambers:=1 MIS=1 BIS=1 BAL=1 MAL=1 AL=1 AC=1 Apical 2 Chambers:AI=1 OK=1 BI=1 BA=1 MA=1 AA=1 AC=1 LV Global Longitudinal Strain: RV Global Longitudinal Strain: LV Function: Normal LV Ejection Fraction, (EF=54-74%) RV Function: Normal Septal Motion: Normal Pericardial Effusion: none seen Atrial Septum: Normal DOPPLER/COLOR FLOW DOPPLER RESULTS: Diastolic Function: indeterminate Tricuspid Valve: mild TV regurgitation Pulmonic Valve: Mild MN AV Regurgitation: Trace AR AV Stenosis: moderate AV Area: 1.0 cm2 AV Pressure Gradient (mmHg): Mean: 17, Peak:29 MV Regurgitation: Mild MR MV Stenosis: mild MS MV Area: cm2 MV Pressure Gradient (mmHg): Mean: 4 MV ERO: cm Regurg. Vol.: ml/beat Regurg. Frac.: % PA Pressure: mmHg DOPPLER/COLOR FOLOW DOPPLER COMMENTS: Trace AR, Mild MR, moderate , mild MS, mild TV regurgitation, Mild MN. Diastolic function: indeterminate CONTRAST: 0.9 ml Optison Administered, (2.1 ml wasted). SUMMARY: AF/RVR. Normal LV size and wall thickness with normal LV systolic function, LVEF 61%. 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 Normal RV size and systolic function. Unable to reliably assess LV and RV strain due to image quality. Marked LAE. Normal aorta and RA. Upper normal IVC diameter with preserved inspiratory collapse. Calcified AV with moderate , est. AV area 1.0 cm2, and trace AR. Moderate MVAC with mild calcific MS, mean gradient 4 mm Hg, and mild MR. Mild TR and MN. Unable to assess PA pressure. No pericardial effusion. No vegetations seen. Compared with 07/27/23, no significant change. Confirmed on 12/11/2023 - 13:11:51 by Frank Horn MD By signing this report, the attending front desk agent certifies that he or she has personally supervised and interpreted the echocardiogram and has reviewed and or edited and agrees with the written comments contained within the report. Kevin Corrigan MD CV ECHO PROCEDURES Fin al Result * POCT glucose (12/11/2023 8:40 AM CDT) Glucose, POC 194 70 - 199 mg/dL Blood 12/11/2023 8:40 AM CDT 12/11/2023 8:40 AM CDT Kevin Corrigan MD LAB POCT ORDERABLES - DEVICE Final Result Performing Organization Address [facility] de Phone Number [facility] [place] [address] * POCT glucose (12/11/2023 3:44 AM CDT) Glucose, POC 185 70 - 199 mg/dL Blood 12/11/2023 3:44 AM CDT 12/11/2023 3:44 AM CDT Kevin Corrigan MD LAB POCT ORDERABLES - DEVICE Final Result Performing Organization Address [facility] de Phone Number [facility] [place] [address] * XR Abdomen Ap 1 Vw (12/11/2023 3:04 AM CDT) Anatomical Region Laterality Modality Body, Abdomen N/A Computed Radiogr aphy 12/11/2023 8:47 AM CDT Impressions 12/11/2023 8:50 AM CDT A single view of the abdomen is submitted for evaluation. Normal bowel gas pattern. ??Partially imaged proximal left femur internal instrumentation. Dictated by: Nestor Quiroga MD The radiology attending physician has personally reviewed this study, and had reviewed and/or edited this written report and agrees with it. Electronically signed by: Anthony Wilburn M.D. Narrative 12/11/2023 8:50 AM CDT EXAMINATION: Abdomen, one view. HISTORY: Nausea COMPARISON: None Procedure Note Anthony Wilburn MD - 12/11/2023 EXAMINATION: Abdomen, one view. HISTORY: Nausea COMPARISON: None IMPRESSION: A single view of the abdomen is submitted for evaluation. Normal bowel gas pattern. Partially imaged proximal left femur internal instrumentation. Dictated by: Nestor Quiroga MD The radiology attending physician has personally reviewed this study, and had reviewed and/or edited this written report and agrees with it. Electronically signed by: Anthony Wilburn M.D. Kevin Corrigan MD IMG XR PROCEDURES [place] Result * XR Chest 1 View (12/11/2023 3:03 AM CDT) Anatomical Region Laterality Modality Body, Chest N/A Computed Radiogr aphy 12/11/2023 10:4 2 AM CDT Impressions 12/11/2023 10:42 AM CDT Comparison 12/08/2023. Calcified granulomas in the lungs. ??The lungs are clear without consolidation, pleural effusion, or pneumothorax. ??No pulmonary edema. ??Unchanged cardiomegaly including marked left atrial enlargement. Electronically signed by: Ned Arreola M.D. Narrative 12/11/2023 10:42 AM CDT EXAMINATION: 1 view chest radiograph Procedure Note Ned Arreola MD - 12/11/2023 EXAMINATION: 1 view chest radiograph IMPRESSION: Comparison 12/08/2023. Calcified granulomas in the lungs. The lungs are clear without consolidation, pleural effusion, or pneumothorax. No pulmonary edema. Unchanged cardiomegaly including marked left atrial enlargement. Electronically signed by: Ned Arreola M.D. Kevin Corrigan MD IMG XR PROCEDURES [place] Result * POCT glucose (12/10/2023 11:44 PM CDT) Glucose, POC 160 70 - 199 mg/dL Blood 12/10/2023 11:4 4 PM CDT 12/10/2023 11:44 PM CDT us Kevin Corrigan MD LAB POCT ORDERABLES - DEVICE Final Result [facility] One [facility] [place] [address] * eGFR (12/10/2023 9:37 PM CDT) eGFR 75 >=60 mL/min/1. 73 m2 Comment: Interpretive Data [...] interpretive data was last reviewed 2021. Blood 12/10/2023 9:37 PM CDT 12/10/2023 9:49 PM CDT Kevin Corrigan MD LAB BLOOD ORDERABLES F inal Result Performing Organization Address [facility] Co de Phone Number [facility] [place] [address] * (ABNORMAL) Phosphorus (12/10/2023 9:37 PM CDT) [facility] Phosphorus, pl 1.8(L) 2.3 - 4.5 mg/dL Blood 12/10/2023 9:37 PM CDT 12/10/2023 9:49 PM CDT Kevin Corrigan MD LAB BLOOD ORDERABLES F inal Result Performing Organization Address [facility] Co de Phone Number [facility] [place] [address] * Magnesium (12/10/2023 9:37 PM CDT) [facility] Magnesium 2.2 1.4 - 2.5 mg/dL Blood 12/10/2023 9:37 PM CDT 12/10/2023 9:49 PM CDT Result [facility] Kevin Corrigan MD LAB BLOOD ORDERABLES F inal Result Performing Organization Address [facility] Co de Phone Number [facility] [place] [address] * (ABNORMAL) Basic metabolic panel (12/10/2023 9:37 PM CDT) [facility] Sodium 135 135 - 145 mmol/L Potassium, pl 4.6 3.3 - 4.9 mmol/L [facility] Chloride 104 97 - 110 mmol/L [facility] Comment:Repeated and Verifie d CO2 25 22 - 32 mmol/L [facility] Anion gap 6 2 - 15 mmol/L [facility] BUN 32(H) 6 - 25 mg/dL [facility] Creatinine 0.79 0.60 - 1.10 mg/dL [facility] Glucose 178 70 - 199 mg/dL [facility] Comment: Interpretive Data Fasting glucose >/= [...] interpretive data was last revised 2022. Calcium 8.0(L) 8.5 - 10.3 mg/dL [facility] Blood 12/10/2023 9:37 PM CDT 12/10/2023 9:49 PM CDT Kevin Corrigan MD LAB BLOOD ORDERABLES F inal Result [facility] One [facility] [place] [address] * (ABNORMAL) CBC without differential (12/10/2023 9:37 PM CDT) WBC 5.6 3.8 - 9.9 K/cumm Hgb 8.5(L) 11.9 - 15.5 g/dL [facility] Hct 25.8(L) 35.6 - 45.5 % [facility] Plt 143(L) 150 - 400 K/cumm [facility] MPV 10.3 9.1 - 12.3 fL [facility] RBC 2.66(L) 3.90 - 5.20 M/cumm [facility] MCV 97.0(H) 81.3 - 96.4 fL [facility] MCH 32.0 27.1 - 33.3 pg [facility] MCHC 32.9 32.3 - 35.7 g/dL [facility] RDW CV 15.8(H) 11.1 - 14.9 % [facility] RDW SD 55.2(H) 35.7 - 48.1 fL [facility] NRBC abs 0.00 0.00 - 0.01 K/cumm [facility] Blood 12/10/2023 9:37 PM CDT 12/10/2023 9:49 PM CDT us Kevin Corrigan MD LAB BLOOD ORDERABLES F inal Result Performing Organization Address City/[facility] Co de Phone Number [facility] [place] [address] * (ABNORMAL) POCT glucose (12/10/2023 7:59 PM CDT) Glucose, POC 210(H) 70 - 199 mg/dL Comment:Glu2: RN/MD Notified Glucose comment 1 Glu2: RN/MD Notified [facility] Blood 12/10/2023 7:59 PM CDT 12/10/2023 7:59 PM CDT us Kevin Corrigan MD LAB POCT ORDERABLES - DEVICE Final Result Performing Organization Address City/[facility] Co de Phone Number [facility] [place] [address] * (ABNORMAL) POCT glucose (12/10/2023 4:36 PM CDT) Glucose, POC 200(H) 70 - 199 mg/dL Blood 12/10/2023 4:3 6 PM CDT 12/10/2023 4:36 PM CDT Kevin Corrigan MD LAB POCT ORDERABLES - DEVICE Final Result Performing Organization Address City/State/[facility] Co de Phone Number [facility] [place] [address] * Transfuse RBC (12/10/2023 2:10 PM CDT) Blood Emy Dorado [facility] BLOOD TRANSFUSION ORDE ANDRES Edited Result - Final Performing Organization Address [facility] Co de Phone Number [facility] [place] [address] * Transfuse RBC: 1 Units (12/10/2023 2:10 PM CDT) Blood Emy Dorado [facility] PRODUCTION CONTROL SUPERVISOR BLOOD TRANSFUSION ORDE RABDANIEL Edited Result - Final * Troponin I high-sensitivity (12/10/2023 1:04 PM CDT) Trop I hs 8 <=17 ng/L Comment: Interpretive Data For further hscTnI resources including the diagnostic algorithm and an aid in interpretation, copy and paste this link: [email or web address].testcatalog.org/show/[email or web address] Current Interpretive Data last revised 2019. Blood 12/10/2023 1:04 PM CDT 12/10/2023 1:28 PM CDT Result [facility] Kevin Corrigan MD LAB BLOOD ORDERABLES F inal Result Performing Organization Address [facility] Co de Phone Number [facility] [place] [address] * (ABNORMAL) Pro B-type natriuretic peptide (12/10/2023 1:04 PM CDT) NT-proBNP 815(H) <=450 pg/mL Comment: Interpretive Comments: A. Dyspnea in Acute Care Setting All Ages: ?< 300 pg/ml, acute heart failure unlikely. < 50 yrs: ?300 - 450 pg/ml, further investigation warranted. ? > 450 pg/ml, acute heart failure likely. 50 - 74 yrs: ? 300 - 900 pg/ml, further investigation warranted. ? > 900 pg/ml, acute heart failure likely . > or = 75 yrs: ? 450 - 1800 pg/ml, further investigation warranted. ? > 1800 pg/ml, acute heart failure likely. B. Non-acute Setting < 75 yrs ? < 125 pg/ml, rules out heart failure. ? > or = 125 pg/ml, further investigation warranted. > or = 75 yrs ?< 450 pg/ml, rules out heart failure. ? > or = 450 pg/ml, further investigation warranted. - Knowledge of each individual patient's NT-proBNP range may be more useful than using similar cut-points for every patient. Please note that marked elevations in NT-proBNP levels may be observed in state other than Left Ventricular Congestive Failure, including: acute coronary syndromes, right heart strain/failure (including pulmonary embolism and cor pulmonale), critical illness, renal failure, as well as advanced age. - References: 1. Yanet SOMMERS et.al. Eur Heart J. 2006:27:330-337. 2. Shona RW, Amie PATRICIO. J. AM Tiffanie Cardiol: Cardiovasc Imag. 2009;2: 216- 225. Interpretive Data Last Revised Date: 2017. Blood 12/10/2023 1:04 PM CDT 12/10/2023 1:28 PM CDT us Kevin Corrigan MD LAB BLOOD ORDERABLES F inal Result Performing Organization Address City/State/[facility] Co de Phone Number RHTDBF [facility] Department [place] [address] * POCT lactate (12/10/2023 12:44 PM CDT) [facility] Lactate POC i-STAT 1.5 0.7 - 2.2 mmol/L Blood 12/10/2023 12:4 4 PM CDT 12/10/2023 12:44 PM CDT Kevin Corrigan MD LAB POCT ORDERABLES - DEVICE Final Result Performing Organization Address [facility]/ZIP Co de Phone Number [facility] [place] [address] * Prepare RBC: 1 Units (12/10/2023 12:24 PM CDT) [facility] Product code [id number] Unit Number [id number] [facility] Product Blood Type OPOS [facility] Dispense Status PRESUMED TRANSFUSED [facility] Blood 12/10/2023 12:2 4 PM CDT 12/10/2023 12:23 PM CDT Narrative [facility] - 12/11/2023 10:16 AM CDT Are special requirements needed? (All products are leukoreduced and CMV- safe)- >No Donor Source->[employer] Date required:-[id number] LRRBC # of [id number] Reasons:-Active bleeding, Hgb <8 g/dL} Emy Sanchez NP BLOOD BANK PRODUCT ORD ERABLES Final Result [facility] [place] [address] * (ABNORMAL) CBC without differential (12/10/2023 12:17 PM CDT) [facility] WBC 5.8 3.8 - 9.9 K/cumm Hgb 8.4(L) 11.9 - 15.5 g/dL [facility] Hct 25.8(L) 35.6 - 45.5 % [facility] Plt 162 150 - 400 K/cumm [facility] MPV 9.8 9.1 - 12.3 fL [facility] RBC 2.59(L) 3.90 - 5.20 M/cumm [facility] MCV 99.6(H) 81.3 - 96.4 fL [facility] MCH 32.4 27.1 - 33.3 pg [facility] MCHC 32.6 32.3 - 35.7 g/dL [facility] RDW CV 14.3 11.1 - 14.9 % [facility] RDW SD 51.9(H) 35.7 - 48.1 fL [facility] NRBC abs 0.00 0.00 - 0.01 K/cumm [facility] Blood 12/10/2023 12:1 7 PM CDT 12/10/2023 12:38 PM CDT us Emy Sanchez PRODUCTION CONTROL SUPERVISOR LAB BLOOD ORDERABLES F inal Result [facility] [place] [address] * (ABNORMAL) POCT glucose (12/10/2023 12:13 PM CDT) [facility] Glucose, POC 237(H) 70 - 199 mg/dL Blood 12/10/2023 12:1 3 PM CDT 12/10/2023 12:13 PM CDT us Kevin Corrigan MD LAB POCT ORDERABLES - DEVICE Final Result [facility] [place] [address] * CT Stroke Head WO Contrast (12/10/2023 11:16 AM CDT) Anatomical Region Laterality Modality Head N/A Computed Tomogra phy 12/10/2023 11:3 5 AM CDT Impressions 12/10/2023 12:08 PM CDT 1. ??New foci of new hypoattenuation within the right temporal lobe and likely the left temporal lobe, although evaluation is somewhat limited due to beam hardening artifact. 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 ??Recommend follow-up with imaging with contrast-enhanced brain MRI if clinically appropriate. 2. ??Chronic left parieto-occipital region of encephalomalacia. The Critical results were discussed with Dr. Pearce by Dr. Ravi Ly on 12/10/2023 at 11:20 AM Dictated by: Ravi Ly M.D. The radiology attending physician has personally reviewed this study, and had reviewed and/or edited this written report and agrees with it. Electronically signed by: Adrienne Kan M.D. Narrative 12/10/2023 12:08 PM CDT EXAMINATION: CT head without contrast HISTORY: Left facial droop, mild aphasia, left arm ataxia TECHNIQUE: CT of the head was performed with images acquired from skull base to vertex without intravenous contrast. COMPARISON: CT head without contrast 08/08/2023 and CTA 08/08/2023 FINDINGS: Regions of new hypoattenuation of the right anterior temporal lobe, temporal operculum, and right insula when compared to prior CT 08/08/2023. ??There is also possible regions of new hypoattenuation within the left anterior temporal lobe, although artifact partially limits the examination. ?? There is no acute intracranial hemorrhage. Ventricles are of normal size and morphology. No mass effect or midline shift is present. There are scattered periventricular hypodensities in keeping with small vessel ischemic disease. There is an unchanged region of left parietooccipital encephalomalacia with areas of laminar necrosis, representing chronic infarct. The visualized portions of the orbits are normal. ??There are bilateral lens replacements. The visualized portions of the mastoids are normal. The visualized portions of the paranasal sinuses are normal. No fractures are identified. Procedure Note Adrienne Kan MD - 12/10/2023 EXAMINATION: CT head without contrast HISTORY: Left facial droop, mild aphasia, left arm ataxia TECHNIQUE: CT of the head was performed with images acquired from skull base to vertex without intravenous contrast. COMPARISON: CT head without contrast 08/08/2023 and CTA 08/08/2023 FINDINGS: Regions of new hypoattenuation of the right anterior temporal lobe, temporal operculum, and right insula when compared to prior CT 08/08/2023. There is also possible regions of new hypoattenuation within the left anterior temporal lobe, although artifact partially limits the examination. There is no acute intracranial hemorrhage. Ventricles are of normal size and morphology. No mass effect or midline shift is present. There are scattered periventricular hypodensities in keeping with small vessel ischemic disease. There is an unchanged region of left parietooccipital encephalomalacia with areas of laminar necrosis, representing chronic infarct. The visualized portions of the orbits are normal. There are bilateral lens replacements. The visualized portions of the mastoids are normal. The visualized portions of the paranasal sinuses are normal. No fractures are identified. IMPRESSION: 1. New foci of new hypoattenuation within the right temporal lobe and likely the left temporal lobe, although evaluation is somewhat limited due to beam hardening artifact. 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 Recommend follow-up with imaging with contrast-enhanced brain MRI if clinically appropriate. 2. Chronic left parieto-occipital region of encephalomalacia. The Critical results were discussed with Dr. Pearce by Dr. Ravi Ly on 12/10/2023 at 11:20 AM Dictated by: Ravi Ly M.D. The radiology attending physician has personally reviewed this study, and had reviewed and/or edited this written report and agrees with it. Electronically signed by: Adrienne Kan M.D. Emy Sanchez NP IMG CT PROCEDURES [place] Result * POCT glucose (12/10/2023 7:39 AM CDT) Glucose, POC 146 70 - 199 mg/dL Blood 12/10/2023 7:39 AM CDT 12/10/2023 7:39 AM CDT Kevin Corrigan MD LAB POCT ORDERABLES - DEVICE Final Result Performing Organization Address [facility] de Phone Number [facility] [place] [address] * POCT glucose (12/10/2023 4:39 AM CDT) Glucose, POC 175 70 - 199 mg/dL Blood 12/10/2023 4:39 AM CDT 12/10/2023 4:39 AM CDT Kevin Corrigan MD LAB POCT ORDERABLES - DEVICE Final Result Performing Organization Address [facility] de Phone Number MINDI [facility] [place] [address] * POCT glucose (12/09/2023 11:50 PM CDT) Glucose, POC 162 70 - 199 mg/dL Blood 12/09/2023 11:5 0 PM CDT 12/09/2023 11:50 PM CDT Kevin Corrigan MD LAB POCT ORDERABLES - DEVICE Final Result Performing Organization Address [facility] de Phone Number [facility] [place] [address] * eGFR (12/09/2023 10:24 PM CDT) eGFR 85 >=60 mL/min/1. 73 m2 Comment: Interpretive Data [...] interpretive data was last reviewed 2021. Blood 12/09/2023 10:2 4 PM CDT 12/09/2023 10:37 PM CDT Kevin Corrigan MD LAB BLOOD ORDERABLES F inal Result Performing Organization Address City/[facility] Co de Phone Number [facility] Department of Laboratories [place], [place] [id number] * Phosphorus (12/09/2023 10:24 PM CDT) Phosphorus, pl 2.7 2.3 - 4.5 mg/dL Blood 12/09/2023 10:2 4 PM CDT 12/09/2023 10:37 PM CDT Kevin Corrigan MD LAB BLOOD ORDERABLES F inal Result Performing Organization Address City/[facility] Co de Phone Number [facility] [place] [address] * (ABNORMAL) Magnesium (12/09/2023 10:24 PM CDT) Magnesium 1.2(L) 1.4 - 2.5 mg/dL Blood 12/09/2023 10:2 4 PM CDT 12/09/2023 10:37 PM CDT Kevin Corrigan MD LAB BLOOD ORDERABLES F inal Result [facility] [place] [address] * (ABNORMAL) Basic metabolic panel (12/09/2023 10:24 PM CDT) [facility] Sodium 140 135 - 145 mmol/L Potassium, pl 3.8 3.3 - 4.9 mmol/L [facility] Chloride 112(H) 97 - 110 mmol/L [facility] CO2 24 22 - 32 mmol/L [facility] Anion gap 4 2 - 15 mmol/L [facility] BUN 21 6 - 25 mg/dL [facility] Creatinine 0.71 0.60 - 1.10 mg/dL [facility] Glucose 157 70 - 199 mg/dL [facility] Comment: Interpretive Data Fasting glucose >/= [...] interpretive data was last revised 2022. Calcium 7.0(L) 8.5 - 10.3 mg/dL [facility] Comment:Reviewed Blood 12/09/2023 10:2 4 PM CDT 12/09/2023 10:37 PM CDT Result [facility] Kevin Corrigan MD LAB BLOOD ORDERABLES F inal Result Performing Organization Address City/[facility]/ZIP Co de Phone Number [facility] [place] [address] * (ABNORMAL) CBC without differential (12/09/2023 10:24 PM CDT) Pathologist [facility] WBC 8.1 3.8 - 9.9 K/cumm Hgb 8.8(L) 11.9 - 15.5 g/dL [facility] Hct 27.8(L) 35.6 - 45.5 % [facility] Plt 164 150 - 400 K/cumm [facility] MPV 9.6 9.1 - 12.3 fL [facility] RBC 2.78(L) 3.90 - 5.20 M/cumm [facility] MCV 100.0(H) 81.3 - 96.4 fL [facility] MCH 31.7 27.1 - 33.3 pg [facility] MCHC 31.7(L) 32.3 - 35.7 g/dL [facility] RDW CV 14.1 11.1 - 14.9 % [facility] RDW SD 51.1(H) 35.7 - 48.1 fL [facility] NRBC abs 0.00 0.00 - 0.01 K/cumm [facility] Blood 12/09/2023 10:2 4 PM CDT 12/09/2023 10:37 PM CDT Kevin Corrigan MD LAB BLOOD ORDERABLES F inal Result [facility] Department [place] [address] * (ABNORMAL) Hemoglobin A1c (12/09/2023 10:24 PM CDT) Pathologist [facility] Hgb A1C 6.5(H) 4.0 - 5.6 % Estimated Average Glucose 140 mg/dL [facility] Comment: The ADA recommends reporting an estimated [...] 12/09/2023 10:38 PM CDT us Emy Sanchez PRODUCTION CONTROL SUPERVISOR LAB BLOOD ORDERABLES F inal Result [facility] Department [place] [address] * XR Femur Left 2 or More Views (12/09/2023 8:27 PM CDT) Anatomical Region Laterality Modality Lower Extremities, Thigh, Femur Left Computed Radiography 12/10/2023 6:47 AM CDT Impressions 12/10/2023 6:47 AM CDT Reduced and internally fixated left femoral intertrochanteric fracture in expected position. Electronically signed by: Mario Cardoza M.D. Narrative 12/10/2023 6:47 AM CDT XR FEMUR LEFT 2 OR MORE VIEWS HISTORY: ??Left femur fracture. FINDINGS: ??2 views of the left femur are obtained and compared with 12/08/2023. There is interval reduction and internal fixation of comminuted intertrochanteric fracture with lateral plate and dynamic screw construct. ??The fractures held in near-anatomic alignment. ??Unchanged constrained left total knee arthroplasty in expected position. ??There is no acute fracture. ??Hardware and components are intact. ??Overlying soft tissue gas and skin theodore are present. Procedure Note Mario Cardoza MD - 12/10/2023 XR FEMUR LEFT 2 OR MORE VIEWS HISTORY: Left femur fracture. FINDINGS: 2 views of the left femur are obtained and compared with 12/08/2023. There is interval reduction and internal fixation of comminuted intertrochanteric fracture with lateral plate and dynamic screw construct. The fractures held in near-anatomic alignment. Unchanged constrained left total knee arthroplasty in expected position. There is no acute fracture. Hardware and components are intact. Overlying soft tissue gas and skin theodore are present. IMPRESSION: Reduced and internally fixated left femoral intertrochanteric fracture in expected position. Electronically signed by: Mario Cardoza M.D. Result [facility] Kevin Corrigan MD IMG XR PROCEDURES [place] Result * POCT glucose (12/09/2023 5:59 PM CDT) Glucose, POC 165 70 - 199 mg/dL Blood 12/09/2023 5:59 PM CDT 12/09/2023 5:59 PM CDT Result [facility] Kevin Corrigan MD LAB POCT ORDERABLES - DEVICE Final Result Performing Organization Address [facility] de Phone Number [facility] [place] [address] * FL Fluoroscopy < 1 Hour (12/09/2023 5:04 PM CDT) Narrative [facility] - 12/09/2023 5:05 PM CDT The images from this study are not interpreted by Radiology. ??Please refer to the physician's procedure / OR operative note. Result [facility] Homer Villalobos MD IMG FLUOROSCOPY PROCEDURES Final Result Performing Organization Address [facility] de Phone Number [email or web address] * POCT glucose (12/09/2023 4:20 PM CDT) Glucose, POC 111 70 - 199 mg/dL Blood 12/09/2023 4:20 PM CDT 12/09/2023 4:20 PM CDT Result [facility] Kevin Corrigan MD LAB POCT ORDERABLES - DEVICE Final Result Performing Organization Address [facility] Co de Phone Number [facility] [place] [address] * POCT glucose (12/09/2023 2:01 PM CDT) Glucose, POC 128 70 - 199 mg/dL Blood 12/09/2023 2:01 PM CDT 12/09/2023 2:01 PM CDT Kevin Corrigan MD LAB POCT ORDERABLES - DEVICE Final Result [facility] [place] [address] * POCT glucose (12/09/2023 11:36 AM CDT) Glucose, POC 149 70 - 199 mg/dL Blood 12/09/2023 11:3 6 AM CDT 12/09/2023 11:36 AM CDT Kevin Corrigan MD LAB POCT ORDERABLES - DEVICE Final Result Performing Organization Address City/[facility]/ZIP Co de Phone Number [facility] [place] [address] * POCT glucose (12/09/2023 8:34 AM CDT) Glucose, POC 119 70 - 199 mg/dL Blood 12/09/2023 8:34 AM CDT 12/09/2023 8:34 AM CDT Kevin Corrigan MD LAB POCT ORDERABLES - DEVICE Final Result Performing Organization Address City/[facility]/ZIP Co de Phone Number [facility] [place] [address] * (ABNORMAL) Urinalysis, microscopic only (12/09/2023 5:01 AM CDT) WBC, ur 6-10(A) 0 - 5 /HPF RBC, ur 3-5(A) 0 - 2 /HPF [facility] Epithelial cells, squamous, ur 1-5 0 - 5 /HPF [facility] Bacteria, ur 3+(A) [facility] Mucous, ur Present(A) [facility] Culture Reflex Comment Reflex conditions for urine culture (WBC >10) not met. [facility] Urine 12/09/2023 5:01 AM CDT 12/09/2023 5:07 AM CDT Whitney Lovelace MD LAB URINE ORDERABLES Fi nal Result [facility] Department [place] [address] * (ABNORMAL) Urinalysis reflex to microscopic and culture Urine (12/09/2023 5:01 AM CDT) Color, ur Yellow Yellow Clarity, ur Clear Clear [facility] Specific gravity, ur 1.025 1.003 - 1.030 [facility] pH, urine 5.5 [facility] Comment: Interpretive Data ? Urine pH is affected by diet, medications, systemic acid-base disturbances, and renal tubular function. ??pH may affect urinary stone formation. ??For example, urine pH below 6.0 may help reduce the tendency for calcium phosphate stones and pH greater than 6.0 may reduce the tendency for uric acid stone formation. Source: [facility] Current Interpretive Data was last revised on 2017 Protein, ur ql Trace Negative [facility] Glucose, ur ql Negative Negative [facility] Ketones, ur Negative Negative [facility] Bilirubin, ur Negative Negative [facility] Blood, ur Negative Negative [facility] Urobilinogen, ur <2.0 <2.0 mg/dL [facility] Nitrite, ur Positive(A) Negative [facility] Leukocyte esterase, ur Trace(A) Negative [facility] UA reflex comment Reflex to microscopic UA will be performed. [facility] Urine 12/09/2023 5:01 AM CDT 12/09/2023 5:07 AM CDT Whitney Lovelace MD LAB MICROBIOLOGY - GENE RAL ORDERABLES Final Result [facility] [place] [address] * ECG 12 lead (12/09/2023 12:15 AM CDT) Ventricular Rate EKG/Min 85 BPM [facility] QRS-Interval (MSEC) 102 ms [facility] QT-Interval (MSEC) 366 ms [facility] QTc 435 ms [facility] R [place] 31 degrees [facility] T [place] -8 degrees [facility] Diagnosis 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 Incomplete right bundle branch block Inferior infarct , age undetermined Abnormal ECG When compared with ECG of 07-AUG-2023 14:22, Incomplete right bundle branch block is now Present Confirmed by MARY NAGEL M.D ([id number]) on 12/10/2023 10:59:07 PM [facility] 12/09/2023 12:1 5 AM CDT 12/10/2023 10:59 PM CDT us Kevin Corrigan MD ECG ORDERABLES Final Result Performing Organization Address [facility] Co de Phone Number [facility] * POCT glucose (12/09/2023 12:01 AM CDT) Glucose, POC 161 70 - 199 mg/dL Blood 12/09/2023 12:0 1 AM CDT 12/09/2023 12:01 AM CDT Kevin Corrigan MD LAB POCT ORDERABLES - DEVICE Final Result Performing Organization Address City/[facility]/ZIP Co de Phone Number [facility] [place] [address] * POCT glucose (12/08/2023 8:52 PM CDT) Glucose, POC 170 70 - 199 mg/dL Blood 12/08/2023 8:52 PM CDT 12/08/2023 8:52 PM CDT Kevin Corrigan MD LAB POCT ORDERABLES - DEVICE Final Result [facility] Department [place] [address] * CT Femur Left WO Contrast (12/08/2023 8:07 PM CDT) Anatomical Region Laterality Modality Lower Extremities Left Computed Tomog noel 12/08/2023 8:16 PM CDT Impressions 12/08/2023 11:11 PM CDT Comminuted and mildly impacted intertrochanteric fracture left femur Dictated by: Jamin Singh MD The radiology attending physician has personally reviewed this study, and had reviewed and/or edited this written report and agrees with it. Electronically signed by: Patricio Galarza MD Narrative 12/08/2023 11:11 PM CDT EXAMINATION: ??CT PELVIS WO CONTRAST, CT FEMUR LEFT WO CONTRAST HISTORY: ??Intertrochanteric fracture FINDINGS: CT examination of the pelvis and left femur is performed in the axial plane without intravenous contrast. Coronal and sagittal reconstructions were obtained. Comparison is made to same day radiographs. Comminuted and mildly impacted intertrochanteric fracture of the left femur. ??No evidence of fracture extension further down the femoral shaft. ??Mildly displaced greater trochanteric fracture fragments. Alignment of both the left and right hips are normal. ??No fracture in the pelvis. ??Moderate degenerative changes in the lumbar spine. ?? There is a partially imaged left knee arthroplasty with a long femoral stem component. ??Mild bilateral hip osteoarthritis. ?? Soft tissue windows of the pelvis demonstrate colonic diverticulosis and calcific atherosclerotic disease. Procedure Note Patricio Galarza MD - 12/08/2023 EXAMINATION: CT PELVIS WO CONTRAST, CT FEMUR LEFT WO CONTRAST HISTORY: Intertrochanteric fracture FINDINGS: CT examination of the pelvis and left femur is performed in the axial plane without intravenous contrast. Coronal and sagittal reconstructions were obtained. Comparison is made to same day radiographs. Comminuted and mildly impacted intertrochanteric fracture of the left femur. No evidence of fracture extension further down the femoral shaft. Mildly displaced greater trochanteric fracture fragments. Alignment of both the left and right hips are normal. No fracture in the pelvis. Moderate degenerative changes in the lumbar spine. There is a partially imaged left knee arthroplasty with a long femoral stem component. Mild bilateral hip osteoarthritis. Soft tissue windows of the pelvis demonstrate colonic diverticulosis and calcific atherosclerotic disease. IMPRESSION: Comminuted and mildly impacted intertrochanteric fracture left femur Dictated by: Jamin Singh MD The radiology attending physician has personally reviewed this study, and had reviewed and/or edited this written report and agrees with it. Electronically signed by: Patricio Galarza MD Whitney Lovelace MD IMG CT PROCEDURES Final Result * CT Pelvis WO Contrast (12/08/2023 8:07 PM CDT) Anatomical Region Laterality Modality Body N/A Computed Tomogra phy 12/08/2023 8:16 PM CDT Impressions 12/08/2023 11:11 PM CDT Comminuted and mildly impacted intertrochanteric fracture left femur Dictated by: Jamin Singh MD The radiology attending physician has personally reviewed this study, and had reviewed and/or edited this written report and agrees with it. Electronically signed by: Patricio Galarza MD Narrative 12/08/2023 11:11 PM CDT EXAMINATION: ??CT PELVIS WO CONTRAST, CT FEMUR LEFT WO CONTRAST HISTORY: ??Intertrochanteric fracture FINDINGS: CT examination of the pelvis and left femur is performed in the axial plane without intravenous contrast. Coronal and sagittal reconstructions were obtained. Comparison is made to same day radiographs. Comminuted and mildly impacted intertrochanteric fracture of the left femur. ??No evidence of fracture extension further down the femoral shaft. ??Mildly displaced greater trochanteric fracture fragments. Alignment of both the left and right hips are normal. ??No fracture in the pelvis. ??Moderate degenerative changes in the lumbar spine. ?? There is a partially imaged left knee arthroplasty with a long femoral stem component. ??Mild bilateral hip osteoarthritis. ?? Soft tissue windows of the pelvis demonstrate colonic diverticulosis and calcific atherosclerotic disease. Procedure Note Patricio Galarza MD - 12/08/2023 EXAMINATION: CT PELVIS WO CONTRAST, CT FEMUR LEFT WO CONTRAST HISTORY: Intertrochanteric fracture FINDINGS: CT examination of the pelvis and left femur is performed in the axial plane without intravenous contrast. Coronal and sagittal reconstructions were obtained. Comparison is made to same day radiographs. Comminuted and mildly impacted intertrochanteric fracture of the left femur. No evidence of fracture extension further down the femoral shaft. Mildly displaced greater trochanteric fracture fragments. Alignment of both the left and right hips are normal. No fracture in the pelvis. Moderate degenerative changes in the lumbar spine. There is a partially imaged left knee arthroplasty with a long femoral stem component. Mild bilateral hip osteoarthritis. Soft tissue windows of the pelvis demonstrate colonic diverticulosis and calcific atherosclerotic disease. IMPRESSION: Comminuted and mildly impacted intertrochanteric fracture left femur Dictated by: Jamin Singh MD The radiology attending physician has personally reviewed this study, and had reviewed and/or edited this written report and agrees with it. Electronically signed by: Patricio Galarza MD Whitney Lovelace MD IM CT PROCEDURES Final Result * XR Knee Left 4 or More Views (12/08/2023 7:33 PM CDT) Anatomical Region Laterality Modality Lower Extremities, Knee Left Computed Radiography 12/08/2023 7:37 PM CDT Impressions 12/08/2023 7:53 PM CDT FINDINGS/IMPRESSION: Left knee: Redemonstration of distal left femoral resection with endoprosthesis and left knee hinged arthroplasty. ??Intact hardware. ??No evidence of periprosthetic fracture or lucency. ??No acute fracture or dislocation. Dictated by: Mary Jane Birmingham MD The radiology attending physician has personally reviewed this study, and had reviewed and/or edited this written report and agrees with it. Electronically signed by: Eldon Castañeda M.D. Narrative 12/08/2023 7:53 PM CDT EXAMINATION: XR KNEE LEFT 4 OR MORE VIEWS COMPARISON: Left femur radiographs 12/08/2023 Procedure Note Eldon Castañeda MD - 12/08/2023 EXAMINATION: XR KNEE LEFT 4 OR MORE VIEWS COMPARISON: Left femur radiographs 12/08/2023 IMPRESSION: FINDINGS/IMPRESSION: Left knee: Redemonstration of distal left femoral resection with endoprosthesis and left knee hinged arthroplasty. Intact hardware. No evidence of periprosthetic fracture or lucency. No acute fracture or dislocation. Dictated by: Mary Jane Birmingham MD The radiology attending physician has personally reviewed this study, and had reviewed and/or edited this written report and agrees with it. Electronically signed by: Eldon Castañeda M.D. Whitney Lovelace MD IMG XR PROCEDURES Final Result * [place] [facility] ILL/INJURED PATIENT INIT 30-74 MIN (12/08/2023 3:27 PM CDT) Narrative Dick Nova MD - 12/08/2023 3:27 PM CDT Dick Nova MD ? 12/08/2023 ??3:27 PM Critical Care Performed by: Dick Nova MD Authorized by: Adonay Douglas MD ?? Critical care provider statement: As reflected in the history, physical exam, orders, notes, and/or MDM, I was personally present while the patient was critically ill and provided critical care services for 35 minutes, excluding time involved in separately billable procedures. ??Critical care was necessary to treat or prevent imminent or life-threatening deterioration of the following condition(s): ?? severe long-bone fracture ??Critical care was time spent by me providing the following: ? continuous telemetry, continuous pulse oximetry and interpretation of bedside monitors, imaging, and arterial/venous lab draws ?? acute fracture care ?? I provided emergent necessary critical care medicine services to this patient. I ordered and reviewed test results and/or imaging studies. I spent time discussing the management of this critically ill patient with consultants and the medical staff. I spent time discussing the management and therapeutic options for this critically ill patient with the patient themselves or with the appropriate designated surrogate decision-maker. I spent time documenting in the medical record. us Adonay Douglas MD IN CLINIC/BED SIDE ORDERABLES Final Result * XR Hip Left 1 View (12/08/2023 3:01 PM CDT) Anatomical Region Laterality Modality Lower Extremities, Hip, Pelvis Left C omputed Radiography 12/08/2023 3:10 PM CDT Impressions 12/08/2023 3:10 PM CDT Suboptimal evaluation of the intertrochanteric fracture of the proximal left femur on this traction view. Electronically signed by: Shelton Fagan M.D., Ph.D Narrative 12/08/2023 3:10 PM CDT EXAMINATION: XR HIP LEFT 1 VIEW HISTORY: Hip fracture COMPARISON: Same-day radiographs FINDINGS: A single traction view is provided. ??The intertrochanteric fracture is somewhat suboptimally profiled on this traction view. ??There is a partially visualized left knee arthroplasty. ?? Procedure Note Shelton Fagan MD PhD - 12/08/2023 EXAMINATION: XR HIP LEFT 1 VIEW HISTORY: Hip fracture COMPARISON: Same-day radiographs FINDINGS: A single traction view is provided. The intertrochanteric fracture is somewhat suboptimally profiled on this traction view. There is a partially visualized left knee arthroplasty. IMPRESSION: Suboptimal evaluation of the intertrochanteric fracture of the proximal left femur on this traction view. Electronically signed by: Shelton Fagan M.D., Ph.D Dick Nova MD IMG XR PROCEDURES Final Result * XR Shoulder Left 2 or More Views (12/08/2023 1:51 PM CDT) Anatomical Region Laterality Modality Upper Extremities, Shoulder Left Comp uted Radiography 12/08/2023 1:59 PM CDT Impressions 12/08/2023 1:59 PM CDT 1. No fracture identified. 2. Incomplete views of the glenohumeral and acromioclavicular joints. Electronically signed by: Shelton Fagan M.D., Ph.D Narrative 12/08/2023 1:59 PM CDT EXAMINATION: XR SHOULDER LEFT 2 OR MORE VIEWS HISTORY: Fall COMPARISON: None available FINDINGS: A 2 view examination of the left shoulder is provided. ??There is incomplete evaluation of the glenohumeral and acromioclavicular joints. ??No fractures identified. Procedure Note Shelton Fagan MD PhD - 12/08/2023 EXAMINATION: XR SHOULDER LEFT 2 OR MORE VIEWS HISTORY: Fall COMPARISON: None available FINDINGS: A 2 view examination of the left shoulder is provided. There is incomplete evaluation of the glenohumeral and acromioclavicular joints. No fractures identified. IMPRESSION: 1. No fracture identified. 2. Incomplete views of the glenohumeral and acromioclavicular joints. Electronically signed by: Shelton Fagan M.D., Ph.D Dick Nova MD IMG XR PROCEDURES Final Result * XR Hip Left 2 or 3 Views (12/08/2023 1:51 PM CDT) Anatomical Region Laterality Modality Lower Extremities, Hip, Pelvis Left C omputed Radiography 12/08/2023 1:58 PM CDT Impressions 12/08/2023 1:58 PM CDT Intertrochanteric extra-articular proximal left femur fracture is suggestion of mild comminution. Electronically signed by: Shelton Fagan M.D., Ph.D Narrative 12/08/2023 1:58 PM CDT EXAMINATION: XR HIP LEFT 2 OR 3 VIEWS HISTORY: Fall. ??Left hip pain COMPARISON: None available FINDINGS: A 2 view examination left hip is submitted. ??Redemonstrated is a intertrochanteric proximal left femur fracture without intra-articular extension with suggestion of mild comminution. Partially visualized left knee arthroplasty change. Procedure Note Shelton Fagan MD PhD - 12/08/2023 EXAMINATION: XR HIP LEFT 2 OR 3 VIEWS HISTORY: Fall. Left hip pain COMPARISON: None available FINDINGS: A 2 view examination left hip is submitted. Redemonstrated is a intertrochanteric proximal left femur fracture without intra-articular extension with suggestion of mild comminution. Partially visualized left knee arthroplasty change. IMPRESSION: Intertrochanteric extra-articular proximal left femur fracture is suggestion of mild comminution. Electronically signed by: Shelton Fagan M.D., Ph.D Dick Nova MD IM XR PROCEDURES Final Result * XR Femur Left 2 or More Views (12/08/2023 12:40 PM CDT) Anatomical Region Laterality Modality Lower Extremities, Thigh, Femur Left Computed Radiography 12/08/2023 1:19 PM CDT Impressions 12/08/2023 1:19 PM CDT 1. Displaced extra articular intertrochanteric fracture of the proximal left femur with suggestion of comminution. 2. No acute findings on chest radiograph. Electronically signed by: Shelton Fagan M.D., Ph.D Narrative 12/08/2023 1:19 PM CDT EXAMINATION: XR CHEST 1 VIEW, XR PELVIS 1 OR 2 VIEWS, XR FEMUR LEFT 2 OR MORE VIEWS HISTORY: Fall FINDINGS: CHEST: Single frontal view the chest is submitted with comparison 08/07/2023. ??No significant change accounting for differences in technique. ??No pneumonic consolidation. ??Suggestion of bibasilar atelectasis. ??Calcified pulmonary nodules in keeping with old granulomatous disease. ??No pulmonary edema. ??No pneumothorax or pleural effusion. ??Heart size is unchanged. ??The aorta is tortuous. Vascular calcifications are seen. PELVIS: A single frontal view the pelvis is submitted with no recent comparison available. ??There is a incompletely evaluated fracture of the intertrochanteric proximal left femur. ??There are multiple phleboliths in the pelvis. ??Mild degenerative changes are seen in the hips. ??Degenerative changes seen in the spine. LEFT FEMUR: There is an extra articular displaced intertrochanteric fracture of the proximal left femur with suggestion of comminution. Left knee arthroplasty changes are noted without evidence of periprosthetic fracture on provided images. ?? Procedure Note Shelton Fagan MD PhD - 12/08/2023 EXAMINATION: XR CHEST 1 VIEW, XR PELVIS 1 OR 2 VIEWS, XR FEMUR LEFT 2 OR MORE VIEWS HISTORY: Fall FINDINGS: CHEST: Single frontal view the chest is submitted with comparison 08/07/2023. No significant change accounting for differences in technique. No pneumonic consolidation. Suggestion of bibasilar atelectasis. Calcified pulmonary nodules in keeping with old granulomatous disease. No pulmonary edema. No pneumothorax or pleural effusion. Heart size is unchanged. The aorta is tortuous. Vascular calcifications are seen. PELVIS: A single frontal view the pelvis is submitted with no recent comparison available. There is a incompletely evaluated fracture of the intertrochanteric proximal left femur. There are multiple phleboliths in the pelvis. Mild degenerative changes are seen in the hips. Degenerative changes seen in the spine. LEFT FEMUR: There is an extra articular displaced intertrochanteric fracture of the proximal left femur with suggestion of comminution. Left knee arthroplasty changes are noted without evidence of periprosthetic fracture on provided images. IMPRESSION: 1. Displaced extra articular intertrochanteric fracture of the proximal left femur with suggestion of comminution. 2. No acute findings on chest radiograph. Electronically signed by: Shelton Fagan M.D., Ph.D Andre Willson MD IMG XR PROCEDURES Final Result * XR Pelvis 1 or 2 Views (12/08/2023 12:40 PM CDT) Anatomical Region Laterality Modality Body, Pelvis N/A Computed Radiogr aphy 12/08/2023 1:19 PM CDT Impressions 12/08/2023 1:19 PM CDT 1. Displaced extra articular intertrochanteric fracture of the proximal left femur with suggestion of comminution. 2. No acute findings on chest radiograph. Electronically signed by: Shelton Fagan M.D., Ph.D Narrative 12/08/2023 1:19 PM CDT EXAMINATION: XR CHEST 1 VIEW, XR PELVIS 1 OR 2 VIEWS, XR FEMUR LEFT 2 OR MORE VIEWS HISTORY: Fall FINDINGS: CHEST: Single frontal view the chest is submitted with comparison 08/07/2023. ??No significant change accounting for differences in technique. ??No pneumonic consolidation. ??Suggestion of bibasilar atelectasis. ??Calcified pulmonary nodules in keeping with old granulomatous disease. ??No pulmonary edema. ??No pneumothorax or pleural effusion. ??Heart size is unchanged. ??The aorta is tortuous. Vascular calcifications are seen. PELVIS: A single frontal view the pelvis is submitted with no recent comparison available. ??There is a incompletely evaluated fracture of the intertrochanteric proximal left femur. ??There are multiple phleboliths in the pelvis. ??Mild degenerative changes are seen in the hips. ??Degenerative changes seen in the spine. LEFT FEMUR: There is an extra articular displaced intertrochanteric fracture of the proximal left femur with suggestion of comminution. Left knee arthroplasty changes are noted without evidence of periprosthetic fracture on provided images. ?? Procedure Note Shelton Fagan MD PhD - 12/08/2023 EXAMINATION: XR CHEST 1 VIEW, XR PELVIS 1 OR 2 VIEWS, XR FEMUR LEFT 2 OR MORE VIEWS HISTORY: Fall FINDINGS: CHEST: Single frontal view the chest is submitted with comparison 08/07/2023. No significant change accounting for differences in technique. No pneumonic consolidation. Suggestion of bibasilar atelectasis. Calcified pulmonary nodules in keeping with old granulomatous disease. No pulmonary edema. No pneumothorax or pleural effusion. Heart size is unchanged. The aorta is tortuous. Vascular calcifications are seen. PELVIS: A single frontal view the pelvis is submitted with no recent comparison available. There is a incompletely evaluated fracture of the intertrochanteric proximal left femur. There are multiple phleboliths in the pelvis. Mild degenerative changes are seen in the hips. Degenerative changes seen in the spine. LEFT FEMUR: There is an extra articular displaced intertrochanteric fracture of the proximal left femur with suggestion of comminution. Left knee arthroplasty changes are noted without evidence of periprosthetic fracture on provided images. IMPRESSION: 1. Displaced extra articular intertrochanteric fracture of the proximal left femur with suggestion of comminution. 2. No acute findings on chest radiograph. Electronically signed by: Shelton Fagan M.D., Ph.D Andre Willson MD IMG XR PROCEDURES Final Result * XR Chest 1 Vw Portable (12/08/2023 12:40 PM CDT) Anatomical Region Laterality Modality Body, Chest N/A Computed Radiogr aphy 12/08/2023 1:19 PM CDT Impressions 12/08/2023 1:19 PM CDT 1. Displaced extra articular intertrochanteric fracture of the proximal left femur with suggestion of comminution. 2. No acute findings on chest radiograph. Electronically signed by: Shelton Fagan M.D., Ph.D Narrative 12/08/2023 1:19 PM CDT EXAMINATION: XR CHEST 1 VIEW, XR PELVIS 1 OR 2 VIEWS, XR FEMUR LEFT 2 OR MORE VIEWS HISTORY: Fall FINDINGS: CHEST: Single frontal view the chest is submitted with comparison 08/07/2023. ??No significant change accounting for differences in technique. ??No pneumonic consolidation. ??Suggestion of bibasilar atelectasis. ??Calcified pulmonary nodules in keeping with old granulomatous disease. ??No pulmonary edema. ??No pneumothorax or pleural effusion. ??Heart size is unchanged. ??The aorta is tortuous. Vascular calcifications are seen. PELVIS: A single frontal view the pelvis is submitted with no recent comparison available. ??There is a incompletely evaluated fracture of the intertrochanteric proximal left femur. ??There are multiple phleboliths in the pelvis. ??Mild degenerative changes are seen in the hips. ??Degenerative changes seen in the spine. LEFT FEMUR: There is an extra articular displaced intertrochanteric fracture of the proximal left femur with suggestion of comminution. Left knee arthroplasty changes are noted without evidence of periprosthetic fracture on provided images. ?? Procedure Note Shelton Fagan MD PhD - 12/08/2023 EXAMINATION: XR CHEST 1 VIEW, XR PELVIS 1 OR 2 VIEWS, XR FEMUR LEFT 2 OR MORE VIEWS HISTORY: Fall FINDINGS: CHEST: Single frontal view the chest is submitted with comparison 08/07/2023. No significant change accounting for differences in technique. No pneumonic consolidation. Suggestion of bibasilar atelectasis. Calcified pulmonary nodules in keeping with old granulomatous disease. No pulmonary edema. No pneumothorax or pleural effusion. Heart size is unchanged. The aorta is tortuous. Vascular calcifications are seen. PELVIS: A single frontal view the pelvis is submitted with no recent comparison available. There is a incompletely evaluated fracture of the intertrochanteric proximal left femur. There are multiple phleboliths in the pelvis. Mild degenerative changes are seen in the hips. Degenerative changes seen in the spine. LEFT FEMUR: There is an extra articular displaced intertrochanteric fracture of the proximal left femur with suggestion of comminution. Left knee arthroplasty changes are noted without evidence of periprosthetic fracture on provided images. IMPRESSION: 1. Displaced extra articular intertrochanteric fracture of the proximal left femur with suggestion of comminution. 2. No acute findings on chest radiograph. Electronically signed by: Shelton Fagan M.D., Ph.D us Andre Willson MD IMG XR PROCEDURES Final Result * eGFR (12/08/2023 11:35 AM CDT) eGFR 89 >=60 mL/min/1. 73 [...] interpretive data was last reviewed 2021. Blood 12/08/2023 11:3 5 AM CDT 12/08/2023 12:05 PM CDT us Notinfile Unknown LAB BLOOD ORDERABLES Final Res ult [facility] Department [place] [address] * Differential, auto (12/08/2023 11:35 AM CDT) Neutrophil abs 4.8 1.5 - 6.5 K/cumm Imm gran abs 0.0 0.0 - 0.1 K/cumm [facility] Lymphocyte abs 1.1 0.8 - 3.3 K/cumm [facility] Monocyte abs 0.5 0.2 - 0.8 K/cumm [facility] Eosinophil abs 0.1 0.0 - 0.5 K/cumm [facility] Basophil abs 0.0 0.0 - 0.1 K/cumm [facility] Neutrophil pct 73.8 % [facility] Comment: Interpretive Data Percent cell count reference ranges are not reported, since discordance with absolute values may lead to misinterpretation of CBC data. Current Interpretive Data was last revised on 2017. Imm gran pct 0.2 % [facility] Comment: Interpretive Data Percent cell count reference ranges are not reported, since discordance with absolute values may lead to misinterpretation of CBC data. Current Interpretive Data was last revised on 2017. Lymphocyte pct 16.9 % [facility] Comment: Interpretive Data Percent cell count reference ranges are not reported, since discordance with absolute values may lead to misinterpretation of CBC data. Current Interpretive Data was last revised on 2017. Monocyte pct 7.4 % [facility] Comment: Interpretive Data Percent cell count reference ranges are not reported, since discordance with absolute values may lead to misinterpretation of CBC data. Current Interpretive Data was last revised on 2017. Eosinophil pct 1.2 % [facility] Comment: Interpretive Data Percent cell count reference ranges are not reported, since discordance with absolute values may lead to misinterpretation of CBC data. Current Interpretive Data was last revised on 2017. Basophil pct 0.5 % [facility] Comment: Interpretive Data Percent cell count reference ranges are not reported, since discordance with absolute values may lead to misinterpretation of CBC data. Current Interpretive Data was last revised on 2017. Blood 12/08/2023 11:3 5 AM CDT 12/08/2023 12:05 PM CDT Notinfile Unknown LAB BLOOD ORDERABLES Final Res ult Performing Organization Address City/[facility]/ZIP Co de Phone Number [facility] Department [place] [address] * Type and screen (12/08/2023 11:35 AM CDT) Gian, indirect Negative ABO Rh O Positive [facility] Blood 12/08/2023 11:3 5 AM CDT 12/08/2023 12:12 PM CDT Narrative [facility] - 12/08/2023 1:13 PM CDT Has the patient had Daratumumab or Isatuximab in the past 6 months?->Unknown Andre Willson MD LAB BLOOD BANK TEST ORDERABLES Final Result Performing Organization Address [facility] [facility]/ZIP Co de Phone Number [facility] [place] [address] * aPTT (12/08/2023 11:35 AM CDT) aPTT 33 28 - 38 sec Comment: Interpretive Data Heparin therapeutic range: 66.0 - 100.0 seconds. Range based on correlation with therapeutic heparin activity range of 0.3 - 0.7 Units/mL. Current interpretive data was last revised on 2022. Blood 12/08/2023 11:3 5 AM CDT 12/08/2023 12:02 PM CDT Andre Willson MD LAB BLOOD ORDERABLES Final Res ult Performing Organization Address [facility] de Phone Number [facility] Department [place] [address] * (ABNORMAL) Protime-INR (12/08/2023 11:35 AM CDT) Pathologist [facility] PT 17.1(H) 9.7 - 13.0 sec INR 1.57(H) 0.90 - 1.20 [facility] Comment: Interpretive data Oral anticoagulant therapeutic ranges: Venous thromboembolism prophylaxis or treatment: 2.0-3.0 CARDIOLOGY Standard range: 2.0-3.0 High-intensity range: 2.5-3.5 Refer to indication-specific guidelines for appropriate target ranges for prosthetic heart valve replacement. Current interpretive data was last revised on 2019. Blood 12/08/2023 11:3 5 AM CDT 12/08/2023 12:02 PM CDT Andre Willson MD LAB BLOOD ORDERABLES Final Res ult Performing Organization Address [facility] de Phone Number [facility] [place] [address] * Comprehensive metabolic panel (12/08/2023 11:35 AM CDT) Pathologist [facility] Sodium 137 135 - 145 mmol/L Potassium, pl 4.9 3.3 - 4.9 mmol/L [facility] Chloride 105 97 - 110 mmol/L [facility] CO2 27 22 - 32 mmol/L [facility] Anion gap 5 2 - 15 mmol/L [facility] BUN 22 6 - 25 mg/dL [facility] Creatinine 0.63 0.60 - 1.10 mg/dL [facility] Glucose 105 70 - 199 mg/dL [facility] Comment: Interpretive Data Fasting glucose >/= [...] interpretive data was last revised 2022. Calcium 10.0 8.5 - 10.3 mg/dL [facility] Bilirubin, total 0.4 0.1 - 1.2 mg/dL [facility] Protein, pl 7.0 6.5 - 8.5 g/dL [facility] Albumin 3.9 3.5 - 5.0 g/dL [facility] Alk phos 75 40 - 130 Units/L [facility] ALT 21 7 - 45 Units/L [facility] AST 25 10 - 45 Units/L [facility] Blood 12/08/2023 11:3 5 AM CDT 12/08/2023 12:05 PM CDT us Andre Willson MD LAB BLOOD ORDERABLES Final Res ult [facility] Department [place] [address] * (ABNORMAL) CBC with auto differential (12/08/2023 11:35 AM CDT) WBC 6.5 3.8 - 9.9 K/cumm Hgb 11.3(L) 11.9 - 15.5 g/dL [facility] Hct 35.0(L) 35.6 - 45.5 % [facility] Plt 204 150 - 400 K/cumm [facility] MPV 9.8 9.1 - 12.3 fL [facility] RBC 3.58(L) 3.90 - 5.20 M/cumm [facility] MCV 97.8(H) 81.3 - 96.4 fL [facility] MCH 31.6 27.1 - 33.3 pg [facility] MCHC 32.3 32.3 - 35.7 g/dL [facility] RDW CV 14.1 11.1 - 14.9 % [facility] RDW SD 50.4(H) 35.7 - 48.1 fL [facility] NRBC abs 0.00 0.00 - 0.01 K/cumm [facility] Blood 12/08/2023 11:3 5 AM CDT 12/08/2023 12:05 PM CDT us Andre Willson MD LAB BLOOD ORDERABLES Final Res ult [facility] Department [place] [address] documented in this encounter Visit Diagnoses Diagnosis Closed displaced fracture of left femoral neck (HCC)- Primary Closed displaced fracture of left femoral neck (HCC) Contusion of left shoulder, initial encounter Fall, initial encounter Fall from standing, initial encounter Chronic heart failure with reduced ejection fraction and diastolic dysfunction ([facility]) ([facility]) Primary hypertension Unspecified essential hypertension Obstructive sleep apnea on CPAP History of CAD (coronary artery disease) History of diabetes mellitus Personal history of endocrine, metabolic, and immunity disorders Closed nondisplaced intertrochanteric fracture of left femur, initial encounter ([facility]) Anxiety Anxiety state, unspecified Hyponatremia Hyposmolality and/or hyponatremia Closed nondisplaced intertrochanteric fracture of left femur (HCC) Paroxysmal atrial fibrillation ([facility]) ([facility]) Atrial fibrillation Discharge planning issues Encounter for medication review Essential hypertension Unspecified essential hypertension Type 2 diabetes mellitus without complications ([facility]) ([facility]) DNR (do not resuscitate) Other specified conditions influencing health status Advanced care planning/counseling discussion Electrolyte depletion Electrolyte and fluid disorders not elsewhere classified Symptomatic hypotension Stroke-like symptom Sleep apnea Unspecified sleep apnea BMI 34.0-34.9,adult Hyperkalemia Hyperpotassemia Urinary retention Unspecified retention of urine Acute blood loss anemia ([facility]) Hyponatremia Hyposmolality and/or hyponatremia documented in this encounter Admitting Diagnoses Diagnosis Closed displaced fracture of left femoral neck (HCC) Closed nondisplaced intertrochanteric fracture of left femur (HCC) documented in this encounter Administered Medications Inactive Administered Medications - up to 3 most recent administrations Medication Order MAR Action Action Date Dose Rate Site acetaminophen (TYLENOL) tablet 1,000 mg 1,000 mg, oral, Every 6 hours, First dose on Thu12/08/23 at 2330 Given 12/16/2023 4:34 PM CDT 1,000 mg Given 12/16/2023 11:49 AM CDT 1,000 mg Given 12/16/2023 4:51 AM CDT 1,000 mg ALPRAZolam (XANAX) tablet 0.5 mg 0.5 mg, oral, 2 times daily PRN, anxiety, Starting on Thu12/08/23 at 2250 Given 12/15/2023 10:46 PM CDT 0.5 mg Given 12/14/2023 4:21 PM CDT 0.5 mg Given 12/13/2023 8:49 PM CDT 0.5 mg bisacodyL (DULCOLAX) suppository 10 mg 10 mg, rectal, Once, On Thu12/14/23 at 0945, For 1 dose, Indications: constipationIndications:constipation Given 12/14/2023 3:08 PM CDT 10 mg calcium carbonate (TUMS) chewable tablet 500 mg 500 mg (200 mg of elemental calcium), oral, 2 times daily, First dose on 12/12/23 at 1315 Given 12/16/2023 7:50 AM CDT 500 mg Given 12/15/2023 8:42 PM CDT 500 mg Given 12/15/2023 9:20 AM CDT 500 mg carvediloL (COREG) tablet 12.5 mg 12.5 mg, oral, 2 times daily with meals (bkfst, dinner), First dose (after last modification) on Thu12/11/23 at 1230 Given 12/12/2023 8:02 AM CDT 12.5 mg Given 12/11/2023 5:10 PM CDT 12.5 mg Given 12/11/2023 2:15 PM CDT 12.5 mg carvediloL (COREG) tablet 12.5 mg 12.5 mg, oral, Once, On 12/12/23 at 1315, For 1 dose Given 12/12/2023 2:20 PM CDT 12.5 mg carvediloL (COREG) tablet 25 mg 25 mg, oral, 2 times daily with meals (bkfst, dinner), First dose (after last modification) on Thu12/12/23 at 1800 Given 12/16/2023 5:11 PM CDT 25 mg Given 12/16/2023 7:51 AM CDT 25 mg Given 12/15/2023 5:55 PM CDT 25 mg carvediloL (COREG) tablet 50 mg 50 mg, oral, 2 times daily with meals (bkfst, dinner), First dose on Thu12/09/23 at 0800, On hold since Thu12/10/2023 at 1316 until manually unheld Given 12/10/2023 7:55 AM CDT 50 mg Given 12/09/2023 8:26 AM CDT 50 mg ceFAZolin (ANCEF) 2,000 mg/20 mL in sterile water (premix) 2,000 mg 2,000 mg, intravenous, at 400 mL/hr, Administer over 3 Minutes, Every 8 hours scheduled, First dose on Thu12/09/23 at 2200, Indications: Prophylaxis, SurgicalIndications:Prophylaxis, Surgical Given 12/11/2023 5:56 AM CDT 2,000 mg 400 mL/hr Given 12/10/2023 9:24 PM CDT 2,000 mg 400 mL/hr Given 12/10/2023 2:55 PM CDT 2,000 mg 400 mL/hr cholecalciferol (VITAMIN D-3) capsule 1,000 Units 1,000 Units, oral, Daily, First dose on Thu12/11/23 at 1230, Each capsule contains 1,000 units (25 mcg) of cholecalciferol. Given 12/16/2023 7:51 AM CDT 1,000 Units Given 12/15/2023 9:20 AM CDT 1,000 Units Given 12/14/2023 8:17 AM CDT 1,000 Units dextrose (D10W) 10% bolus 250 mL 250 mL, intravenous, at 1,000 mL/hr, Administer over 15 Minutes, Every 15 min PRN, blood glucose less than 70 mg/dL and UNABLE to swallow/take PO glucose/juice., Starting on Thu12/09/23 at 0831, After treatment for hypoglycemia, recheck BG followed by treatment every 15 minutes until the BG is greater than 100 mg/dL. Then check BG 1 hour post treatment. If BG is less than 100 mg/dL, repeat Q15 minute BG checks and treatment. Call MD for each episode of hypoglycemia., Indications: hypoglycemic disorderIndications:hypog lycemic disorder dextrose (D10W) 10% bolus 500 mL 500 mL, intravenous, at 250 mL/hr, Administer over 2 Hours, Once, On 12/12/23 at 0730, For 1 dose, If blood glucose greater than 250 mg/dL, hold dextrose and contact provider. Initiate PRIOR to insulin. , Indications: Prevent HypoglycemiaIndications:P revent Hypoglycemia New Bag 12/12/2023 7:43 AM CDT 500 mL 250 mL/hr dextrose gel in packet 15 g 15 g, oral, Every 15 min PRN, low blood sugar, blood glucose less than 70 mg/dL, Starting on Thu12/09/23 at 0831, If patient is alert and able to eat/drink, give 15 gm glucose or one juice (4 fluid ounces) NOT ORANGE JUICE. After treatment for hypoglycemia, recheck BG followed by treatment every 15 minutes until the BG is greater than 100 mg/dL. Then check BG 1 hour post-treatment. If BG is less than 100 mg/dL, repeat Q15 minute BG checks and treatment. Call MD for each episode of hypoglycemia., Indications: hypoglycemic disorderIndications:hypog lycemic disorder enoxaparin (LOVENOX) syringe 30 mg 30 mg, subcutaneous, Every 12 hours scheduled, First dose on Thu12/08/23 at 2330, Indications: Deep Vein Thrombosis Prevention, On hold since Thu12/09/2023 at 0128 until manually unheldIndications:Deep Vein Thrombosis Prevention Given 12/08/2023 11:36 PM CDT 30 mg Left Upper Abdomen enoxaparin (LOVENOX) syringe 30 mg 30 mg, subcutaneous, Every 12 hours scheduled, First dose (after last modification) on Yuliana 12/10/23 at 0915, Indications: Deep Vein Thrombosis PreventionIndications:Rika p Vein Thrombosis Prevention Given 12/16/2023 7:52 AM CDT 30 mg Left Lower Abdomen Given 12/15/2023 8:42 PM CDT 30 mg Ri ght Lower Abdomen Given 12/15/2023 9:18 AM CDT 30 mg Le ft Lower Abdomen fentaNYL (SUBLIMAZE) preservative free injection 50 mcg 50 mcg, intravenous, Every 1 hour PRN, 1st line for pain, Starting on Thu12/08/23 at 1149, For 3 doses Given 12/08/2023 7:49 PM CDT 50 mcg Given 12/08/2023 2:07 PM CDT 50 mcg Given 12/08/2023 1:15 PM CDT 50 mcg FLUoxetine (PROzac) capsule 20 mg 20 mg, oral, Daily, First dose on Thu12/09/23 at 0900 Given 12/16/2023 7:51 AM CDT 20 mg Given 12/15/2023 9:20 AM CDT 20 mg Given 12/14/2023 8:17 AM CDT 20 mg furosemide (LASIX) tablet 40 mg 40 mg, oral, Daily, First dose on Thu12/09/23 at 0900 Given 12/10/2023 7:55 AM CDT 40 mg Given 12/09/2023 8:26 AM CDT 40 mg glucagon injection 1 mg 1 mg, intramuscular, Every 30 min PRN, low blood sugar, blood glucose less than 70 mg/dL AND no IV access AND unable to take PO glucose/juice., Starting on Thu12/09/23 at 0831, After Glucagon is administered, position patient on side if possible to avoid aspiration. Obtain IV access. Follow glucagon treatment with glucose treatment or IV dextrose. After treatment for hypoglycemia, recheck BG followed by treatment every 15 minutes until the BG is greater than 100 mg/dL. Then check BG 1 hour post treatment. If BG is less than 100 mg/dL, repeat Q15 minute BG checks and treatment. Call MD for each episode of hypoglycemia. Reconstitute 1 mg vial with 1 mL SWFI. Use immediately following reconstitution. HYDROmorphone (DILAUDID) injection 0.2 mg 0.2 mg, intravenous, Administer over 2 Minutes, Every 10 min PRN, 1st line for pain, Starting on Thu12/09/23 at 1746, Phase I, Switch to 2nd line analgesic order if pain is uncontrolled or increasing after 2 doses. Notify Anesthesiologist if total PACU dose reaches 2 mg and pain score 5/10 or more., Indications: PainIndications:Pain Given 12/09/2023 6:22 PM CDT 0.2 mg Given 12/09/2023 6:12 PM CDT 0.2 mg HYDROmorphone (DILAUDID) injection 0.4 mg 0.4 mg, intravenous, Administer over 2 Minutes, Every 10 min PRN, 2nd line for pain, Starting on Thu12/09/23 at 1746, Phase I, May administer 10 mintes after 2nd dose of 1st line analgesic agent for uncontrolled or increasing pain. Revert to 1st line dose if POSS of 3. Notify Anesthesiologist if total PACU dose reaches 2 mg and pain score 5/10 or more., Indications: PainIndications:Pain Given 12/09/2023 7:18 PM CDT 0.4 mg HYDROmorphone (DILAUDID) injection 0.5 mg 0.5 mg, intravenous, Administer over 2 Minutes, Once, On Thu12/08/23 at 1432, For 1 dose Given 12/08/2023 2:32 PM CDT 0.5 mg HYDROmorphone (DILAUDID) injection 0.5 mg 0.5 mg, intravenous, Administer over 2 Minutes, Every 2 hours PRN, 1st line for pain, breakthrough pain, Starting on Thu12/08/23 at 2220 Given 12/10/2023 6:38 AM CDT 0.5 mg Given 12/08/2023 10:26 PM CDT 0.5 mg insulin lispro (HumaLOG, ADMELOG) 100 unit/mL injection 0-10 Units 0-10 Units, subcutaneous, Every 4 hours scheduled, First dose on Thu12/09/23 at 0915, Blood glucose mg/dL: 149 or less: No insulin 150-199: add 2 unit 200-249: add 4 units 250-299: add 6 units 300-349: add 8 units and notify physician for adjustment of insulin orders. 350-399: add 10 units and notify physician for adjustment of insulin orders. Over 400: Notify physician for adjustment of insulin orders. Do NOT hold for NPO Status, Indications: Diabetes MellitusIndications:Diabetes Mellitus Given 12/14/2023 11:54 AM CDT 6 Units Left Lower Abdomen Given 12/14/2023 8:18 AM CDT 4 Units Le ft Lower Abdomen Given 12/14/2023 3:13 AM CDT 2 Units Le ft Lower Abdomen insulin lispro (HumaLOG, ADMELOG) 100 unit/mL injection 0-10 Units 0-10 Units, subcutaneous, 3 times daily with meals, First dose (after last modification) on 12/14/23 at 1800, Blood glucose mg/dL: 149 or less: No insulin 150-199: add 2 unit 200-249: add 4 units 250-299: add 6 units 300-349: add 8 units and notify physician for adjustment of insulin orders. 350-399: add 10 units and notify physician for adjustment of insulin orders. Over 400: Notify physician for adjustment of insulin orders. Do NOT hold for NPO Status, Indications: Diabetes MellitusIndications:Diabetes Mellitus Given 12/16/2023 5:11 PM CDT 6 Units Left Lower Abdomen Given 12/16/2023 11:48 AM CDT 6 Units L eft Lower Abdomen Given 12/16/2023 7:51 AM CDT 2 Units Le ft Lower Abdomen insulin regular (HumuLIN R, NovoLIN R) 100 unit/mL injection 4 Units 4 Units (rounded from 4.24 Units = 0.05 Units/kg ? 84.8 kg), intravenous, Once, On 12/12/23 at 0730, For 1 dose, Administer AFTER dextrose infusion started. Dose = 0.05 units/kg; Maximum 5 units/dose., Indications: hyperkalemiaIndications:hyperkalemia Given 12/12/2023 7:43 AM CDT 4 Units ketamine (KETALAR) injection 10 mg 10 mg, intravenous, Administer over 2 Minutes, Once, On Tu12/08/23 at 1141, For 1 dose Given 12/08/2023 11:43 AM CDT 10 mg ketorolac (TORADOL) 30 mg/mL injection 15 mg 15 mg, intravenous, Once, On Thu12/09/23 at 2030, For 1 dose, For Adult IV push, administer over 15 seconds Given 12/09/2023 7:56 PM CDT 15 mg levothyroxine (SYNTHROID) tablet 50 mcg 50 mcg, oral, Daily, First dose on Thu12/09/23 at 0900, Administer on an empty stomach, preferably 30 minutes before breakfast. Take 4 hours apart from antacids, iron and calcium products. Separate from tube feeds, if applicable. Given 12/16/2023 7:51 AM CDT 50 mcg Given 12/15/2023 9:20 AM CDT 50 mcg Given 12/14/2023 8:17 AM CDT 50 mcg lidocaine (ASPERCREME) 4 % patch 1 patch 1 patch, transdermal, Administer over 12 Hours, Every 24 hours, First dose on Thu12/08/23 at 1826, Apply to affected area: back Medication Applied 12/15/2023 5:55 PM CDT 1 patch Other (Comment) Medication Applied 12/14/2023 5:27 PM CDT 1 patch Other (Comment) Medication Applied 12/13/2023 6:12 PM CDT 1 patch Other (Comment) losartan (COZAAR) tablet 100 mg 100 mg, oral, Daily, First dose on Thu12/09/23 at 0900 Given 12/10/2023 7:54 AM CDT 100 mg Given 12/09/2023 8:26 AM CDT 100 mg magnesium citrate oral solution 296 mL 296 mL, oral, Once, On Thu12/14/23 at 0945, For 1 dose Given 12/14/2023 10:13 AM CDT 296 mL magnesium sulfate 2 g/50 mL in water (premix) 2 g 2 g, intravenous, Administer over 60 Minutes, Once, On Thu12/13/23 at 2245, For 1 dose New Bag 12/13/2023 10:40 PM CDT 2 g magnesium sulfate 4 g/100 mL in water (premix) 4 g 4 g, intravenous, Administer over 90 Minutes, Once, On Thu12/10/23 at 0045, For 1 dose New Bag 12/10/2023 12:30 AM CDT 4 g methocarbamoL (ROBAXIN) tablet 500 mg 500 mg, oral, Once, On Thu12/10/23 at 2000, For 1 dose Given 12/10/2023 9:24 PM CDT 500 mg methocarbamoL (ROBAXIN) tablet 500 mg 500 mg, oral, 3 times daily, First dose on Thu12/16/23 at 0945 ondansetron (ZOFRAN) injection 4 mg 4 mg, intravenous, Administer over 2 Minutes, Every 4 hours PRN, nausea, vomiting, Starting on Thu12/10/23 at 2333 Given 12/16/2023 12:21 PM CDT 4 mg Given 12/15/2023 10:26 PM CDT 4 mg Given 12/15/2023 7:44 AM CDT 4 mg oxyCODONE (ROXICODONE) tablet 5 mg 5 mg, oral, Every 4 hours PRN, 2nd line for pain, Starting on Thu12/08/23 at 2250, Indications: PainIndications:Pain Given 12/16/2023 3:53 AM CDT 5 mg Given 12/15/2023 3:29 AM CDT 5 mg Given 12/14/2023 6:08 AM CDT 5 mg perflutren lipid (DEFINITY) 1.5 mL in sodium chloride 0.9% 10 mL syringe 1-10 mL, intravenous, Once in imaging, contrast, Starting on Thu12/11/23 at 0749, For 1 dose, Intra-Procedure (CV) perflutren protein-a (OPTISON) 3 mL in sodium chloride 0.9% 8 mL syringe 1-8 mL, intravenous, Once in imaging, contrast, Starting on Thu12/11/23 at 0739, For 1 dose, Intra-Procedure (CV) perflutren protein-a (OPTISON) 3 mL in sodium chloride 0.9% 8 mL syringe 1-8 mL, intravenous, Once in imaging, contrast, Starting on Thu12/11/23 at 0748, For 1 dose, Intra-Procedure (CV) Given by Other 12/11/2023 10:10 AM CDT 2.5 mL polyethylene glycol (MIRALAX) packet 17 g 17 g, oral, Daily, First dose on Thu12/09/23 at 0900, Indications: constipationIndications:constipatio n Given 12/16/2023 7:52 AM CDT 17 g Given 12/15/2023 9:20 AM CDT 17 g Given 12/14/2023 8:18 AM CDT 17 g prochlorperazine (COMPAZINE) injection 5 mg 5 mg, intravenous, Administer over 2 Minutes, Every 6 hours PRN, nausea, vomiting, Starting on Thu12/11/23 at 0036, Indications: 2nd lineIndications:2nd line Given 12/13/2023 6:23 PM CDT 5 mg Given 12/11/2023 12:47 AM CDT 5 mg rosuvastatin (CRESTOR) tablet 20 mg 20 mg, oral, Daily, First dose on Thu12/09/23 at 0900 Given 12/16/2023 7:51 AM CDT 20 mg Given 12/15/2023 9:20 AM CDT 20 mg Given 12/14/2023 8:17 AM CDT 20 mg senna (SENOKOT) tablet 1 tablet 1 tablet, oral, Daily PRN, constipation, Starting on Thu12/08/23 at 2250 Given 12/16/2023 4:52 AM CDT 1 tablet Given 12/15/2023 9:20 AM CDT 1 tablet Given 12/14/2023 8:25 AM CDT 1 tablet sodium chloride 0.9% 0.9% infusion - ADS Override Pull Starting on Thu12/10/23 at 1202, For 1 dose, Created by cabinet override sodium chloride 0.9% bolus 1,000 mL 1,000 mL, intravenous, Once, On Thu12/10/23 at 1245, For 1 dose New Bag 12/10/2023 12:10 PM CDT 1,000 mL sodium chloride 0.9% bolus 500 mL 500 mL, intravenous, at 500 mL/hr, Administer over 1 Hours, Once, On Thu12/10/23 at 2015, For 1 dose New Bag 12/10/2023 7:45 PM CDT 500 mL 250 mL/hr sodium chloride 0.9% infusion 75 mL/hr, intravenous, Continuous, Starting on Thu12/09/23 at 0830 New Bag 12/10/2023 6:19 AM CDT 75 mL/hr 75 mL/hr New Bag 12/09/2023 9:16 PM CDT 75 mL/hr 75 mL/hr New Bag 12/09/2023 8:43 AM CDT 75 mL/hr 75 mL/hr sodium chloride 0.9% IVPB 0-250 mL 0-250 mL, intravenous, Once, On Thu12/10/23 at 1300, For 1 dose, Prime blood tubing and administer amount needed to clear line (usually 50-100 mL) after transfusion complete. New Bag 12/10/2023 1:04 PM CDT 150 mL sodium chloride 0.9% IVPB 0-250 mL 0-250 mL, intravenous, Once, On Thu12/13/23 at 0500, For 1 dose, Prime blood tubing and administer amount needed to clear line (usually 50-100 mL) after transfusion complete. New Bag 12/13/2023 8:28 AM CDT 250 mL sodium chloride 0.9% IVPB 0-250 mL 0-250 mL, intravenous, Once, On Thu12/13/23 at 2230, For 1 dose, Prime blood tubing and administer amount needed to clear line (usually 50-100 mL) after transfusion complete. New Bag 12/13/2023 11:21 PM CDT 250 mL sodium chloride tablet 1 g 1 g, oral, Once, On Thu12/15/23 at 0000, For 1 dose, Each 1 gram tablet contains 17 mEq of sodium. Given 12/15/2023 12:12 AM CDT 1 g sodium chloride tablet 1 g 1 g, oral, Once, On Thu12/15/23 at 2330, For 1 dose, Each 1 gram tablet contains 17 mEq of sodium. Given 12/15/2023 11:48 PM CDT 1 g spironolactone (ALDACTONE) tablet 50 mg 50 mg, oral, Daily, First dose on Thu12/09/23 at 0900 Given 12/10/2023 7:55 AM CDT 50 mg Given 12/09/2023 8:27 AM CDT 50 mg documented in this encounter Discontinued Medications Medication Sig Discontinue Reason Start Date End Da te ALPRAZolam (XANAX) 0.5 mg tabletIndications:Anxi ety Take 1 tablet (0.5 mg total) by mouth 2 (two) times a day as needed for anxiety 11/06/2023 12/16/2023 ALPRAZolam (XANAX) 0.5 mg tabletIndications:Anxi ety Take 1 tablet (0.5 mg total) by mouth 2 (two) times a day as needed for anxiety 12/16/2023 12/16/2023 oxyCODONE (ROXICODONE) 5 mg immediate release tabletIndications:Pain Take 1 tablet (5 mg total) by mouth every 4 (four) hours as needed for pain 12/16/2023 12/16/2023 losartan (COZAAR) 100 mg tablet TAKE 1 TABLET BY MOUTH EVERY DAY Stop Taking at Discharge 06/18/2023 12/16/2023 furosemide (LASIX) 40 mg tablet Take 1 tablet (40 mg total) by mouth daily Stop Taking at Discharge 12/16/2023 carvediloL (COREG) 25 mg tablet Take 2 tablets (50 mg total) by mouth 2 (two) times a day with meals Stop Taking at Discharge 10/13/2023 12/16/2023 documented as of this encounter Active and Recently Administered Medications Times are shown in CDT. Scheduled Medication Order 12/14/2023 12/15/2023 12/16/2023 acetaminophen (TYLENOL) tablet 1,000 mg 1,000 mg, oral, Every 6 hours, First dose on Thu12/08/23 at 2330 0608 (Given - Provider: Alfredo Lind RN)1154 (Given - Provider: Dariana Washington, ARMANI)1726 (Given - Provider: Dariana Washington, ARMANI) 0011 (Given - Provider: Morro Wade RN)0448 (Not Given - Provider: Aron Perez RN - Reason: Patient/family refused)1158 (Given - Provider: Eneida Kaiser, ARMANI)1755 (Given - Provider: Eneida Kaiser, ARMANI)2246 (Given - Provider: Negra Manrique RN) 0451 (Given - Provider: Aron Perez, ARMANI)1149 (Given - Provider: Minerva Marcano, ARMANI)1634 (Given - Provider: Minerva Marcano, ARMANI) bisacodyL (DULCOLAX) suppository 10 mg (COMPLETED) 10 mg, rectal, Once, On Thu12/14/23 at 0945, For 1 dose, Indications: constipation 1508 (Given - Provider: Dariana Washington, ARMANI) calcium carbonate (TUMS) chewable tablet 500 mg 500 mg (200 mg of elemental calcium), oral, 2 times daily, First dose on 12/12/23 at 1315 0817 (Given - Provider: Dariana Washington, ARMANI)2153 (Given - Provider: Aron Perez, ARMANI) 0920 (Given - Provider: Eneida Kaiser, ARMANI)2042 (Given - Provider: Aron Perez, ARMANI) 0750 (Given - Provider: Minerva Marcano, ARMANI) carvediloL (COREG) tablet 25 mg 25 mg, oral, 2 times daily with meals (bkfst, dinner), First dose (after last modification) on 12/12/23 at 1800 0817 (Given - Provider: Dariana Washington RN)1726 (Given - Provider: Dariana Washington RN) 0924 (Given - Provider: Eneida Kaiser, ARMANI)1755 (Given - Provider: Eneida Kaiser RN) 0751 (Given - Provider: Minerva Marcano, ARMANI)1711 (Given - Provider: Minerva Marcano, ARMANI) cholecalciferol (VITAMIN D-3) capsule 1,000 Units 1,000 Units, oral, Daily, First dose on Thu12/11/23 at 1230, Each capsule contains 1,000 units (25 mcg) of cholecalciferol. 0817 (Given - Provider: Dariana Washington RN) 0920 (Given - Provider: Eneida Kaiser RN) 0751 (Given - Provider: Minerva Marcano, ARMANI) enoxaparin (LOVENOX) syringe 30 mg 30 mg, subcutaneous, Every 12 hours scheduled, First dose (after last modification) on Thu12/10/23 at 0915, Indications: Deep Vein Thrombosis Prevention 0817 (Given - Provider: Dariana Washington RN)2153 (Given - Provider: Aron Perez, ARMANI) 0918 (Given - Provider: Eneida Kaiser, ARMANI)2042 (Given - Provider: Aron Perez RN) 0752 (Given - Provider: Minerva Marcano, ARMANI) FLUoxetine (PROzac) capsule 20 mg 20 mg, oral, Daily, First dose on Thu12/09/23 at 0900 0817 (Given - Provider: Dariana Washington RN) 0920 (Given - Provider: Eneida Kaiser, ARMANI) 0751 (Given - Provider: Minerva Marcano RN) insulin lispro (HumaLOG, ADMELOG) 100 unit/mL injection 0-10 Units (CANCELED) 0-10 Units, subcutaneous, Every 4 hours scheduled, First dose on Thu12/09/23 at 0915, Blood glucose mg/dL: 149 or less: No insulin 150-199: add 2 unit 200-249: add 4 units 250-299: add 6 units 300-349: add 8 units and notify physician for adjustment of insulin orders. 350-399: add 10 units and notify physician for adjustment of insulin orders. Over 400: Notify physician for adjustment of insulin orders. Do NOT hold for NPO Status, Indications: Diabetes Mellitus 0313 (Given - Provider: Alfredo Lind RN)0818 (Given - Provider: Dariana Washington RN)1154 (Given - Provider: Dariana Washington RN) insulin lispro (HumaLOG, ADMELOG) 100 unit/mL injection 0-10 Units 0-10 Units, subcutaneous, 3 times daily with meals, First dose (after last modification) on Thu12/14/23 at 1800, Blood glucose mg/dL: 149 or less: No insulin 150-199: add 2 unit 200-249: add 4 units 250-299: add 6 units 300-349: add 8 units and notify physician for adjustment of insulin orders. 350-399: add 10 units and notify physician for adjustment of insulin orders. Over 400: Notify physician for adjustment of insulin orders. Do NOT hold for NPO Status, Indications: Diabetes Mellitus 1726 (Given - Provider: Dariana Washington RN) 0750 (Given - Provider: Eneida Kaiser RN)1158 (Given - Provider: Eneida Kaiser RN)1754 (Given - Provider: Eneida Kaiser RN) 0751 (Given - Provider: Minerva Marcano, ARMANI)1148 (Given - Provider: Minerva Marcano RN)1711 (Given - Provider: Minerva Marcano RN) levothyroxine (SYNTHROID) tablet 50 mcg 50 mcg, oral, Daily, First dose on Thu12/09/23 at 0900, Administer on an empty stomach, preferably 30 minutes before breakfast. Take 4 hours apart from antacids, iron and calcium products. Separate from tube feeds, if applicable. 0817 (Given - Provider: Dariana Washington RN) 0920 (Given - Provider: Eneida Kaiser RN) 0751 (Given - Provider: Minerva Marcano RN) lidocaine (ASPERCREME) 4 % patch 1 patch 1 patch, transdermal, Administer over 12 Hours, Every 24 hours, First dose on Thu12/08/23 at 1826, Apply to affected area: back 0606 (Medication Removed - Provider: Alfredo Lind RN)1727 (Medication Applied - Provider: Dariana Washington RN - Comment: left thigh) 0448 (Medication Removed - Provider: Aron Perez RN)1755 (Medication Applied - Provider: Eneida Kaiser RN - Comment: L leg) 0430 (Medication Removed - Provider: Aron Perez RN)1713 (Not Given - Provider: Minerva Marcano RN - Reason: Patient/family refused) magnesium citrate oral solution 296 mL (COMPLETED) 296 mL, oral, Once, On Thu12/14/23 at 0945, For 1 dose 1013 (Given - Provider: Dariana Washington RN) methocarbamoL (ROBAXIN) tablet 500 mg 500 mg, oral, 3 times daily, First dose on Thu12/16/23 at 0945 1011 (Not Given - Provider: Minerva Marcano RN - Reason: Other - Comment: low BP)1636 (Not Given - Provider: Minerva Marcano RN - Reason: Other) polyethylene glycol (MIRALAX) packet 17 g 17 g, oral, Daily, First dose on Thu12/09/23 at 0900, Indications: constipation 0818 (Given - Provider: Dariana Washington RN) 0920 (Given - Provider: Eneida Kaiser, ARMANI) 0752 (Given - Provider: Minerva Marcano RN) rosuvastatin (CRESTOR) tablet 20 mg 20 mg, oral, Daily, First dose on Thu12/09/23 at 0900 0817 (Given - Provider: Dariana Washington RN) 0920 (Given - Provider: Eneida Kaiser RN) 0751 (Given - Provider: Minerva Marcano RN) sodium chloride tablet 1 g (COMPLETED) 1 g, oral, Once, On Thu12/15/23 at 0000, For 1 dose, Each 1 gram tablet contains 17 mEq of sodium. 0012 (Given - Provider: Morro Wade RN) sodium chloride tablet 1 g (COMPLETED) 1 g, oral, Once, On Thu12/15/23 at 2330, For 1 dose, Each 1 gram tablet contains 17 mEq of sodium. 2348 (Given - Provider: Aron Perez, RN) PRN Medication Order 12/14/2023 12/15/2023 12/16/2023 ALPRAZolam (XANAX) tablet 0.5 mg 0.5 mg, oral, 2 times daily PRN, anxiety, Starting on Thu12/08/23 at 2250 1621 (Given - Provider: Dariana Washington, ARMANI) 2246 (Given - Provider: Negra Manrique RN) dextrose (D10W) 10% bolus 250 mL(Linked Group 1) 250 mL, intravenous, at 1,000 mL/hr, Administer over 15 Minutes, Every 15 min PRN, blood glucose less than 70 mg/dL and UNABLE to swallow/take PO glucose/juice., Starting on Thu12/09/23 at 0831, After treatment for hypoglycemia, recheck BG followed by treatment every 15 minutes until the BG is greater than 100 mg/dL. Then check BG 1 hour post treatment. If BG is less than 100 mg/dL, repeat Q15 minute BG checks and treatment. Call MD for each episode of hypoglycemia., Indications: hypoglycemic disorder dextrose gel in packet 15 g(Linked Group 1) 15 g, oral, Every 15 min PRN, low blood sugar, blood glucose less than 70 mg/dL, Starting on Thu12/09/23 at 0831, If patient is alert and able to eat/drink, give 15 gm glucose or one juice (4 fluid ounces) NOT ORANGE JUICE. After treatment for hypoglycemia, recheck BG followed by treatment every 15 minutes until the BG is greater than 100 mg/dL. Then check BG 1 hour post-treatment. If BG is less than 100 mg/dL, repeat Q15 minute BG checks and treatment. Call MD for each episode of hypoglycemia., Indications: hypoglycemic disorder glucagon injection 1 mg 1 mg, intramuscular, Every 30 min PRN, low blood sugar, blood glucose less than 70 mg/dL AND no IV access AND unable to take PO glucose/juice., Starting on Thu12/09/23 at 0831, After Glucagon is administered, position patient on side if possible to avoid aspiration. Obtain IV access. Follow glucagon treatment with glucose treatment or IV dextrose. After treatment for hypoglycemia, recheck BG followed by treatment every 15 minutes until the BG is greater than 100 mg/dL. Then check BG 1 hour post treatment. If BG is less than 100 mg/dL, repeat Q15 minute BG checks and treatment. Call MD for each episode of hypoglycemia. Reconstitute 1 mg vial with 1 mL SWFI. Use immediately following reconstitution. ondansetron (ZOFRAN) injection 4 mg 4 mg, intravenous, Administer over 2 Minutes, Every 4 hours PRN, nausea, vomiting, Starting on Yuliana 12/10/23 at 2333 0309 (Given - Provider: Alfredo Lind, ARMANI)2156 (Given - Provider: Aron Perez, ARMANI) 0744 (Given - Provider: Eneida Kaiser, ARMANI)2226 (Given - Provider: Aron Perez RN) 1221 (Given - Provider: Minerva Marcano RN) oxyCODONE (ROXICODONE) tablet 5 mg 5 mg, oral, Every 4 hours PRN, 2nd line for pain, Starting on Thu12/08/23 at 2250, Indications: Pain 0608 (Given - Provider: Alfredo Lind, ARMANI) 0329 (Given - Provider: Aron Perez, ARMANI)0921 (Not Given - Provider: Eneida Kaiser RN - Reason: Patient/family refused) 0353 (Given - Provider: Aron Perez RN) perflutren lipid (DEFINITY) 1.5 mL in sodium chloride 0.9% 10 mL syringe 1-10 mL, intravenous, Once in imaging, contrast, Starting on Thu12/11/23 at 0749, For 1 dose, Intra-Procedure (CV) perflutren protein-a (OPTISON) 3 mL in sodium chloride 0.9% 8 mL syringe 1-8 mL, intravenous, Once in imaging, contrast, Starting on Thu12/11/23 at 0739, For 1 dose, Intra-Procedure (CV) senna (SENOKOT) tablet 1 tablet 1 tablet, oral, Daily PRN, constipation, Starting on Thu12/08/23 at 2250 0825 (Given - Provider: Dariana Washington RN) 0920 (Given - Provider: Eneida Kaiser, ARMANI) 0452 (Given - Provider: Aron Perez RN) Linked Groups Order Group 1: dextrose gel in packet 15 gJump to med 15 g, oral, Every 15 min PRN, low blood sugar, blood glucose less than 70 mg/dL, Starting on Thu12/09/23 at 0831, If patient is alert and able to eat/drink, give 15 gm glucose or one juice (4 fluid ounces) NOT ORANGE JUICE. After treatment for hypoglycemia, recheck BG followed by treatment every 15 minutes until the BG is greater than 100 mg/dL. Then check BG 1 hour post-treatment. If BG is less than 100 mg/dL, repeat Q15 minute BG checks and treatment. Call MD for each episode of hypoglycemia., Indications: hypoglycemic disorder Or dextrose (D10W) 10% bolus 250 mLJump to med 250 mL, intravenous, at 1,000 mL/hr, Administer over 15 Minutes, Every 15 min PRN, blood glucose less than 70 mg/dL and UNABLE to swallow/take PO glucose/juice., Starting on Thu12/09/23 at 0831, After treatment for hypoglycemia, recheck BG followed by treatment every 15 minutes until the BG is greater than 100 mg/dL. Then check BG 1 hour post treatment. If BG is less than 100 mg/dL, repeat Q15 minute BG checks and treatment. Call MD for each episode of hypoglycemia., Indications: hypoglycemic disorder documented in this encounter Orders Medications Ordered That Jon ht Not Have Been Administered Count Last Ordered Date First Ordered Date methocarbamoL (ROBAXIN) tablet 500 mg 1 04/2023 Lactated Ringer's (LR) bolus 500 mL 1 12/14 carvediloL (COREG) tablet 12.5 mg 1 024 ergocalciferol (VITAMIN D) c apsule 50,000 Units 1 12/11/2023 perflutren lipid (DEFINITY) 1.5 mL in sodium chloride 0.9% 10 mL syringe 1 12/11/2023 perflutren protein-a (OPTISO N) 3 mL in sodium chloride 0.9% 8 mL syringe 1 12/11/2023 Carrier Fluids for Secondary Infusion - 0.9% Sodium Chloride 1 12/09/2023 ceFAZolin (ANCEF) 2,000 mg/2 0 mL in sterile water (premix) 2,000 mg 1 12/09/2023 dextrose (D10W) 10% bolus 250 mL 1 12/09/19 dextrose gel in packet 15 g 1 12/09/2023 diphenhydrAMINE (BENADRYL) 5 0 mg/mL injection 12.5 mg 1 12/09/2023 glucagon injection 1 mg 1 12/09/2023 hydrALAZINE (APRESOLINE) injection 5 mg 1 0 12/09/2023 labetaloL (NORMODYNE,TRANDAT E) injection 10 mg 1 12/09/2023 Lactated Ringer's (LR) infusion 2 metoprolol (LOPRESSOR) injection 1 mg 1 naloxone (NARCAN) 0.4 mg/mL injection 0.04-0.4 mg 1 12/09/2023 sodium chloride 0.9% flush 0.5-20 mL 1 11/15 sodium chloride 0.9% irrigation 1 sterile water irrigation 1 12/09/2023 apixaban (ELIQUIS) tablet 5 mg 1 12/08/2023 BUPivacaine (MARCAINE) 0.5 % (5 mg/mL) preservative free injection 100 mg 1 12/08/2023 ondansetron (ZOFRAN) injection 4 mg 1 12/07 Lab Orders Without Results Count Last Ordered D ate First Ordered Date POCT GLUCOSE DEVICE 43 12/16/2023 12/08/19 Nursing Count Last Ordered Date First Orde red Date DISCHARGE ACTIVITY 3 12/16/2023 DISCHARGE INSTRUCTIONS 1 12/16/2023 WEIGHT BEARING STATUS 1 12/16/2023 LUCIO CATHETER - DISCONTINUE 2 12/14/2023 12/11/2023 INSERT LUCIO CATHETER 2 12/12/20232023 STRAIGHT CATH 2 12/12/2023 12/09/2023 NURSING COMMUNICATION 1 12/10/2023 MISCELLANEOUS NURSING CARE ORDER (SPECIFY) 1 12/08/2023 WEIGH PATIENT 1 12/08/2023 Consult Count Last Ordered Date First Orde red Date AUTHORIZATION FOR POST-ACUTE CARE 1 024 IP CONSULT TO CARDIOLOGY 1 12/10/2023 IP CONSULT TO SOCIAL WORK 1 12/09/2023 IP CONSULT TO SPIRITUAL CARE 1 12/09/2023 CONSULT TO ORTHO-TRAUMA 1 12/08/2023 Consult to Trauma Surgery 1 12/08/2023 Admission Count Last Ordered Date First Orde red Date ADMIT TO INPATIENT 1 12/08/2023 Transfer Count Last Ordered Date First Orde red Date TRANSFER PATIENT TO NEW UNIT 1 12/10/2023 Discharge Count Last Ordered Date First Orde red Date DISCHARGE PATIENT 1 12/16/2023 Case Request Count Last Ordered Date First Orde red Date CASE REQUEST OPERATING ROOM 1 12/08/2023 documented in this encounter Care Teams Buhr Dresser Relationship Specialty Start Date End Date Cuba Larsen MD PCP - General Family Medicine 01/23/22 Chris Mendes MD Referring Physician Cardiology 12/23/21 Keli Orozco, supervisor beet end Failure Coordinator Transplant 04/15/23 Tami Mcknight supervisor beet end Failure Coordinator Cardiology 09/14/23 documented as of this encounter
--- OUTSIDE RECORDS SUMMARY | 2024-03-13 01:07 | XMS_ITS | Encounter Summary ---
Author Organization [facility] Healthcare Address [address] [place] [address] Care Team Providers Care Boom Truck Driver Name Role Phone Chris Mendes MD Unavailable [phone] Cuba Larsen MD Primary Care Provider [phone] Keli Orozco RN Unavailable Unavailable Tami Mcknight RN Unavailable Unavailab le Reason for Visit * Reason Comments Chart Review Med Adherence Encounter Details Date Type Department Care Team ([facility] st Contact Info) Description 02/08/2024 ACO Clinical Pharmacist [facility] Accountable Care Organization [address] [place] [id number] Racquel Nance RPh [address] [place] [address] [facility] [address] [place] [address] Social History Tobacco Use Types Packs/Day Years [...] on file 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 According to this report, Rosuvastatin was last refilled on 09/02/2023 for a 90 day supply. Losartan was last refilled on 09/12/2023 for a 90 day supply. Goal is to have enough medicine so that 80% or more of the days are covered each year. Rosuvastatin filled 02/04/2024 for 90 day supply Losartan discontinued during December hospital stay Racquel Nance RPh GLUER GLUER documented in this encounter Plan of Treatment Not on file documented as of this encounter Visit Diagnoses Not on filedocumented in this encounter Care Teams Boom Truck Driver Relationship Specialty Start Date End Date Cuba Larsen MD PCP - General Family Medicine 01/23/22 Chris Mendes MD Referring Physician Cardiology 12/23/21 Keli Orozco RN Heart Failure Coordinator Transplant 04/15/23 Tami Mcknight RN Heart Failure Coordinator Cardiology 09/14/23 documented as of this encounter
--- OUTSIDE RECORDS SUMMARY | 2024-03-13 01:07 | XMS_ITS | Encounter Summary ---
Author Organization [facility] Healthcare Address [address] [place] [address] Care Team Providers Care Spa Supervisor Name Role Phone Chris Mendes MD Unavailable [phone] Cuba Larsen MD Primary Care Provider [phone] Keli Orozco RN Unavailable Unavailable Tami Mcknight RN Unavailable Unavailab le Encounter Details Date Type Department Care Team (Late st Contact Info) Description 02/10/2024 Orders Only [facility] [place] [address] [place] [id number] 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 Gender Identity Not on file Sexual Orientation Not on file documented as of this encounter Plan of Treatment Not on file documented as of this encounter Procedures Procedure Name Priority Date/Time Associated Diagnosis Comments SCAN - RADIOLOGY/IMAGING 02/10/2024 documented in this encounter Results * SCAN - RADIOLOGY/IMAGING (02/10/2024) Anatomical Region Laterality Modality Other us Cuba Larsen MD Edited Result - Final documented in this encounter Visit Diagnoses Not on filedocumented in this encounter Care Teams Spa Supervisor Relationship Specialty Start Date End Date Cuba Larsen MD PCP - General Family Medicine 01/23/22 Chris eMndes MD Referring Physician Cardiology 12/23/21 Keli Orozco, stud master/mistress Failure Coordinator Transplant 04/15/23 Tami Mcknight RN Heart Failure Coordinator Cardiology 09/14/23 documented as of this encounter
--- OUTSIDE RECORDS SUMMARY | 2024-03-13 01:07 | XMS_ITS | Encounter Summary ---
Author Organization [facility] Healthcare Address [address] [place] [address] Care Team Providers Care Python Django Developer Name Role Phone Chris Mendes MD Unavailable [phone] Cuba Larsen MD Primary Care Provider [phone] Keli Orozco RN Unavailable Unavailable Tami Mcknight RN Unavailable Unavailab le Reason for Visit * Reason Onset Date Comments Referral Request 01/15/2024 Encounter Details Date Type Department Care Team (Late Contact Info) Description 01/15/[address] 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 * Telephone Encounter - Maryann James - 01/15/2024 12:23 PM CDT Referral Provider Name: Dr. Homer Villalobos Specialty: Orthopedic Address: [address] [place] [address], Zip: [place] [address] Diagnosis Code/Symptom/Reason Patient is being seen: S72.142 Date of Appointment: 01/17/2024 NPI#: [id number] Tax ID#: [id number] Is insurance in chart up to date? Yes, [facility] Additional Comments: none Does message need to be routed? Yes-Action Needed documented in this encounter Plan of Treatment Not on file documented as of this encounter Visit Diagnoses Not on filedocumented in this encounter Care Teams Python Django Developer Relationship Specialty Start Date End Date Cuba Larsen MD PCP - General Family Medicine 01/23/22 Chris Mendes MD Referring Physician Cardiology 12/23/21 Keli Orozco, network infrastructure architect Failure Coordinator Transplant 04/15/23 Tami Mcknight, network infrastructure architect Failure Coordinator Cardiology 09/14/23 documented as of this encounter
--- OUTSIDE RECORDS SUMMARY | 2024-03-13 01:07 | XMS_ITS | Encounter Summary ---
Author Organization [facility] Healthcare Address [address] [place] [address] Care Team Providers Care Tangible Personal Property Appraiser Name Role Phone Chris Mendes MD Unavailable [phone] Cuba Larsen MD Primary Care Provider [phone] Keli Orozco RN Unavailable Unavailable Tami Mcknight RN Unavailable Unavailab le Reason for Referral * Diagnostic Imaging (Routine) - Closed Specialty Diagnoses / Procedures Referred By Contac t Referred To Contact Diagnoses Closed displaced fracture of left femoral neck (HCC) Procedures XR Femur Left 2 or More Views Homer Villalobos MD [address] [facility] [place] [address] Phone: tel: fax: [address] [address] Referral ID Status Reason Start Date Expiration Date Visits Re quested Visits Authorized [id number] Closed 01/14/2024 02/12/2025 1 1 RMEDIATE SCHOOL TEACHER Reason for Visit * Diagnostic Imaging (Routine) - Closed Specialty Diagnoses / Procedures Referred By Contac t Referred To Contact Diagnoses Closed displaced fracture of left femoral neck (HCC) Procedures XR Femur Left 2 or More Views Homer Villalobos MD [address] [facility] [address] [place] [address] Phone: tel: fax: [facility] [address] [facility] [place] [address] Referral ID Status Reason Start Date Expiration Date Visits Re quested Visits Authorized [id number] Closed 01/14/2024 02/12/2025 1 1 Encounter Details Date Type Department Care Team (Latest Contact Info) Description 01/18/2024 2:00 PM INTERMEDIATE SCHOOL TEACHER - 01/18/2024 11:59 PM INTERMEDIATE SCHOOL TEACHER Hospital Encounter [facility] [address] [place] [address] Closed displaced fracture of left femoral neck (HCC) Discharge Disposition: Discharge to home or self care Social History Tobacco Use Types Packs/Day Years Used Date Smoking Tobacco: Never Smokeless Tobacco: Never Alcohol Use Standard Drinks/Week Comments Yes 0 (1 standard drink = 0.6 oz pur e alcohol) AUDIT-C Answer Date Recorded Q1: How often [...] on file Legal Sex Female 4:20 AM INTERMEDIATE SCHOOL TEACHER Gender Identity Not on file Sexual Orientation Not on file documented as of this encounter Medications at [...] complication, without long-term current use of insulin ([facility]) ([facility]) One strip daily to check glucose 100 each 1 03/19/2023 5 blood-glucose meter miscIndications: Type 2 diabetes mellitus without complication, without long-term current use of insulin ([facility]) ([facility]) Use daily or as directed for monitoring of diabetes. 1 each 03/19/2023 CALCIUM CARBONATE ORAL Take 600 mg by mouth 2 (two) times a day carvediloL (COREG) 25 mg tablet Take 1 tablet (25 mg total) by mouth 2 (two) times a day with meals 12/16/2023 cholecalciferol (VITAMIN D-3) 2000 unit tablet Take by mouth glipiZIDE (GLUCOTROL) 10 mg tablet TAKE 1 TABLET BY MOUTH TWICE A DAY BEFORE BREAKFAST AND LUNCH 180 tablet 1 11/19/2023 lancets miscIndications: Type 2 diabetes mellitus without complication, without long-term current use of insulin ([facility]) ([facility]) 1 each by other route daily 100 [...] mouth daily as needed for constipation 12/16/2023 5 spironolactone (ALDACTONE) 50 mg tablet Take 1 tablet (50 mg total) by mouth daily 90 tablet 3 11/02/2023 ALPRAZolam (XANAX) 0.5 mg tabletIndication s:Anxiety Take 1 tablet (0.5 mg total) by mouth 2 (two) times a day as needed for anxiety 10 tablet 12/16/2023 4 FLUoxetine (PROzac) 20 mg capsule Take 1 capsule (20 mg total) by mouth daily 30 capsule 2 09/02/2023 4 levothyroxine (SYNTHROID) 50 mcg tablet TAKE 1 TABLET BY MOUTH EVERY DAY 90 tablet 11/19/2023 4 metFORMIN (GLUCOPHAGE) 500 mg tablet TAKE 1 TABLET BY MOUTH TWICE A DAY WITH FOOD 180 tablet 1 09/07/2023 4 documented as of this encounter Discharge Disposition Disposition Code Departure Means Destination Discharge to home or self care documented in this encounter Plan of Treatment Not on file documented as of this encounter Procedures Procedure Name Priority Date/Time Associated Diagnosis Comments XR FEMUR LEFT 2 OR MORE VIEWS Schedule Routine, Read Routine (OP Routine) 01/18/2024 2:34 PM INTERMEDIATE SCHOOL TEACHER Closed displaced fracture of left femoral neck (HCC) documented in this encounter Results * XR Femur Left 2 or More Views (01/18/2024 2:34 PM INTERMEDIATE SCHOOL TEACHER) Anatomical Region Laterality Modality Lower Extremities, Thigh, Femur Left Computed Radiography 01/18/2024 2:47 PM INTERMEDIATE SCHOOL TEACHER Impressions 01/18/2024 2:47 PM INTERMEDIATE SCHOOL TEACHER 1. ??Healing internally fixated left femur intertrochanteric fracture. Electronically signed by: Rayray Matthews MD Narrative 01/18/2024 2:47 PM INTERMEDIATE SCHOOL TEACHER EXAMINATION: XR FEMUR LEFT 2 OR MORE [...] fracture. Electronically signed by: Rayray Matthews MD us Homer Villalobos MD IMG XR PROCEDURE S Final Result documented in this encounter Visit Diagnoses Diagnosis Closed displaced fracture of left femoral neck (HCC) documented in this encounter Care Teams Tangible Personal Property Appraiser Relationship Specialty Start Date End Date Cuba Larsen MD PCP - General Family Medicine 01/23/22 Chris Mendes MD Referring Physician Cardiology 12/23/21 Keli Orozco, upholstery cutter Failure Coordinator Transplant 04/15/23 Tami Mcknight, upholstery cutter Failure Coordinator Cardiology 09/14/23 documented as of this encounter
--- OUTSIDE RECORDS SUMMARY | 2024-03-13 01:07 | XMS_ITS | Encounter Summary ---
Author Organization [facility] Address [address] [place] [address] Phone Care Team Providers Care Marble Mechanic Helper Name Role Phone Chris Mendes MD Unavailable [phone] Cuba Larsen MD Primary Care Provider [phone] Keli Orozco RN Unavailable Unavailable Tami Mcknight RN Unavailable Unavailab le Reason for Visit * Consultation (Routine) - Authorized Specialty Diagnoses / Procedures Referred By Contac t Referred To Contact Cardiology Diagnoses Mitral valve prolapse Cuba Larsen MD [address] [address] Phone: tel: fax: Chris Mendes MD [address] [address] Phone: tel: fax: Referral ID Status Reason Start Date Expiration Date Visits Requested Visits Authorized [id number] Authorized Specialty Services Required 01/23/2025 12 12 Encounter Details Date Type Department Care Team (Late st Contact Info) Description 02/01/2024 1:20 PM TECHNICAL SUPPORT DIRECTOR Office Visit [facility] Cardiology [address] [facility] 8[address] [place] [address] [place] [phone] Chris Mendes MD [address] [facility] [address] [place] [address] Other hyperlipidemia (Primary Dx); Mitral valve prolapse; Essential hypertension Social History Tobacco Use Types Packs/Day Years [...] on file Legal Sex Female 4:20 AM TECHNICAL SUPPORT DIRECTOR Gender Identity Not on file Sexual Orientation Not on file documented as of this encounter Last Filed Vital Signs Vital Sign Reading Time Taken Comments Blood Pressure 95/58 02/01/2024 1:39 PM TECHNICAL SUPPORT DIRECTOR Pulse 81 02/01/2024 1:39 PM TECHNICAL SUPPORT DIRECTOR Temperature - - Respiratory Rate - - Oxygen Saturation 95% 02/01/2024 1:39 PM TECHNICAL SUPPORT DIRECTOR Inhaled Oxygen Concentration - - Weight 81.6 kg (180 lb) 02/01/2024 1:39 PM TECHNICAL SUPPORT DIRECTOR Height 157.5 cm (5' 2 ) 02/01/2024 1:39 PM TECHNICAL SUPPORT DIRECTOR Body Mass Index 32.92 02/01/2024 1:39 PM TECHNICAL SUPPORT DIRECTOR documented in this encounter Patient Instructions * Patient Instructions* Tami Mcknight RN - 02/01/2024 1:20 PM TECHNICAL SUPPORT DIRECTOR For any questions or concerns, please call the Heart Failure Office at [phone]. Thank you! Dyan telemarketing representative Failure/Heart Transplant Coordinators PLAN FOR TODAY: Medication Changes: None today. Testing: None today. Follow-up: 6 months Misc: NICAL SUPPORT DIRECTOR NICAL SUPPORT DIRECTOR NICAL SUPPORT DIRECTOR NICAL SUPPORT DIRECTOR documented in this encounter Progress Notes * Donaldo Metcalf MD - 02/01/2024 1:20 PM CST Images from the original note were not included. Department of Medicine Chris Mendes M.D. Cardiovascular Division Professor, [facility] Advanced Medicine Director, Heart Failure Program RETURN OFFICE VISIT NOTE Date of Visit: 02/01/24 Name: Prema Pearce : 1940 Medical Record: [id number] Correspondence: Cuba Larsen MD Reason for visit: followup of cardiomyopathy Dear Cuba Larsen MD: It was my pleasure to see Prema Pearce today at the [facility] for follow-up of her systolic heart failure. She is a 83 y.o. 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 Since that time she was hospitalized twice . Regarding her recent hospitalizations: 08/06-08/10/23: She was admitted for R MCA stroke s/p mechanical thrombectomy 12/07-12/16/2023: Ground level mechanical fall with L IT fx s/p ORIF of Left IT Today patient reports she has been living in inpatient rehab after her recent hospitalization for her fall and will be moving to assisted living facility soon. No chest pain, shortness of breath, palpitations, no syncope/lightheadedness, no orthopnea, no PND, no lower extremity swelling. She has been working with physical therapy and reports good performance/progression. It appears hermobility is limited currently by her mechanical issues or her knee and leg. Today vitals in clinic 95/58, HR 80s. She reports good adherence to all her medications. ROS: Review of systems per HPI and, otherwise all other systems are negative CURRENT MEDICATIONS: Current Outpatient Medications: acetaminophen 500 mg capsule, Take 2 capsules (1,000 mg total) by mouth every 6 (six) hours, Disp: , Rfl: ALPRAZolam (XANAX) 0.25 mg tablet, , Disp: , Rfl: 0 apixaban (Eliquis) 5 mg tablet, Take 1 tablet (5 mg total) by mouth 2 (two) times a day, Disp: 60 tablet, Rfl: 11 blood glucose diagnostic (glucose blood) strip, One strip daily to check glucose, Disp: 100 each, Rfl: 1 blood-glucose meter mis, Use daily or as directed for monitoring of diabetes., Disp: 1 each, Rfl: 0 CALCIUM CARBONATE ORAL, Take 600 mg by mouth 2 (two) times a day , Disp: , Rfl: carvediloL (COREG) 25 mg tablet, Take 1 tablet (25 mg total) by mouth 2 (two) times a day with meals, Disp: , Rfl: cholecalciferol (VITAMIN D-3) 2000 unit tablet, Take by mouth, Disp: , Rfl: FLUoxetine (PROzac) 40 mg capsule, Take 1 capsule (40 mg total) by mouth daily, Disp: , Rfl: 0 glipiZIDE (GLUCOTROL) 10 mg tablet, TAKE 1 TABLET BY MOUTH TWICE A DAY BEFORE BREAKFAST AND LUNCH, Disp: 180 tablet, Rfl: 1 lancets misc, 1 each by other route daily, Disp: 100 each, Rfl: 1 levothyroxine (SYNTHROID) 50 mcg tablet, TAKE 1 TABLET BY MOUTH EVERY DAY, Disp: 90 tablet, Rfl: 0 lidocaine (ASPERCREME) 4 % adhesive patch,medicated, Place 1 patch on the skin daily, Disp: , Rfl: melatonin 5 mg tablet, Take 1 tablet (5 mg total) by mouth nightly, Disp: , Rfl: metFORMIN (GLUCOPHAGE) 500 mg tablet, TAKE 1 TABLET BY MOUTH TWICE A DAY WITH FOOD, Disp: 180 tablet, Rfl: 1 methocarbamoL (ROBAXIN) 500 mg tablet, Take 1 tablet (500 mg total) by mouth 3 (three) times a day,Disp: 30 tablet, Rfl: 0 oxyCODONE (ROXICODONE) 5 mg immediate release tablet, Take 1 tablet (5 mg total) by mouth every 4 (four) hours as needed for pain, Disp: 15 tablet, Rfl: 0 polyethylene glycol (MIRALAX) 17 gram/dose bulk powder, Take 17 g by mouth daily, Disp: , Rfl: rosuvastatin (CRESTOR) 20 mg tablet, TAKE 1 TABLET BY MOUTH EVERY DAY, Disp: 90 tablet, Rfl: 3 senna (SENOKOT) 8.6 mg tablet, Take 1 tablet by mouth daily as needed for constipation, Disp: , Rfl: spironolactone (ALDACTONE) 50 mg tablet, Take 1 tablet (50 mg total) by mouth daily, Disp: 90 tablet, Rfl: 3 sodium chloride 1 gram tablet, Take 1 tablet (1 g total) by mouth daily for 7 days, Disp: 7 tablet,Rfl: 0 ALLERGIES: Allergies Allergen Reactions Amlodipine Shortness of breath Prasanth Inhibitors Cough Reaction: COUGH, Citalopram Lisinopril Lisinopril-Hydrochlorothiazide Dizziness and Nausea only Dizzy, nauseated PHYSICAL EXAM: Vitals: 02/01/24 1339 BP: 95/58 BP Location: Right arm Patient Position: Sitting Pulse: 81 SpO2: 95% Weight: 81.6 kg (180 lb) Body mass index is 32.92 kg/m??. General Appearance: No distress, Well developed Head/eyes/nose/throat: Normocephalic, without obvious abnormality, conjunctiva/corneas clear, sclera anicteric. Mucus membranes moist. Neck: No enlargement/tenderness/nodules; no carotid bruit. No JVD Lungs: Clear to auscultation bilaterally, respirations unlabored, no crackles wheezes or rhonchi. Normal excursion Cardiovascular: Irregularly irregular, No murmur, no gallop, no rub pulses 2+ and symmetric. Abdomen: Soft, non-tender, bowel sounds active all four quadrants, no masses, no organomegaly, non-distended Extremities: Extremities normal, no cyanosis. Warm/well perfused. no edema Skin: Skin color, texture, turgor normal, no rashes or bruising. Neurologic: Alert & oriented x 4. Grossly normal strength. Psychosocial: Normal affect and mood ADDITIONAL DIAGNOSTIC DATA: Chemistry Component Value Date/Time SODIUM 129 (L) 12/15/2023 2048 SODIUM 137 11/27/2023 1323 POTASSIUM 5.3 (H) 12/15/20232047 POTASSIUM 4.6 11/27/2023 1323 CHLORIDE 95 (L) 12/15/20232047 CHLORIDE 104 11/27/2023 1323 CO2 27 12/15/2023 2048 CO2 24 11/27/2023 1323 BUNSER 26 (H) 12/15/2023 2048 BUNSER 18 11/27/2023 1323 CREATININE 0.62 12/15/2023 2048 CREATININE 0.67 11/27/2023 1323 CREATININE 0.40 (A) 06/02/2021 0000 GLUCOSE 282 (H) 12/16/2023 1711 GLUCOSE 214 (H) 12/15/2023 2048 GLUCOSE 80 11/27/2023 1323 Component Value Date/Time CALCIUM 9.1 12/15/20238 CALCIUM 9.8 11/27/2023 1323 ALKPHOS 75 12/08/2023 1135 ALKPHOS 79 02/23/2023 1101 AST 25 12/08/2023 1135 AST 17 02/23/2023 1101 ALT 21 12/08/2023 1135 ALT 12 02/23/2023 1101 BILITOT 0.4 12/08/2023 1135 BILITOT 0.6 02/23/2023 1101 Lab Results Component Value Date WBC 8.5 12/16/2023 HGB 7.7 (L) 12/16/2023 HCT 23.4 (L) 12/16/2023 MCV 96.3 12/16/2023 LABPLAT 237 12/16/2023 Lab Results Component Value Date ALT 21 12/08/2023 AST 25 12/08/2023 ALKPHOS 75 12/08/2023 BILITOT 0.4 12/08/2023 Other data reviewed included: TTE 12/11/2023: AF/RVR. Normal LV size and wall thickness [...] Hg, and mild MR. Mild TR and OH. Unable to assess PA pressure. No pericardial effusion. No vegetations seen. Compared with 07/27/23, no significant change. ASSESSMENT AND PLAN: Prema Pearce is a 83 y.o. female with nonischemic cardiomyopathy who presents today for follow up. Today she is endorsing NYHA Class II symptoms. #HFrecEF #NICM #Afib #Recent mechanical fall Patient presents for follow up for her NICM/HFrecEF; she appears clinically well compensated and euvolemic, without any new symptoms. She is currently recovering from a mechanical fall and working extensively with PT. Recommendations: - We will not make any new changes to her medication regimen - Plan for 6 month follow up ORDERS THIS ENCOUNTER: No orders of the defined types were placed in this encounter. Donaldo Metcalf MD Technical Support Director 02/01/24 1:48 PM Cosigned by Chris Mendes MD at 02/01/2024 11:34 PM TECHNICAL SUPPORT DIRECTOR NICAL SUPPORT DIRECTOR NICAL SUPPORT DIRECTOR Associated attestation - Chris Mendes MD - 02/01/2024 11:34 PM TECHNICAL SUPPORT DIRECTOR I have seen and examined the patient. I agree with the findings and plan of care as documented in the resident/fellow's note. My total encounter time on 02/01/2024 was 30 minutes which was spent in the activities documented in the note. This includes time spent prior to the visit and after the visit in direct care of the patient. This time does not include time spent in any separately reportable services. documented in this encounter Plan of Treatment Not on file documented as of this encounter Visit Diagnoses Diagnosis Other hyperlipidemia- Primary Mitral valve prolapse Mitral valve disorders Essential hypertension Unspecified essential hypertension documented in this encounter Discontinued Medications Medication Sig Discontinue Reason Start Date End Da te ALPRAZolam (XANAX) 0.5 mg tabletIndications:Anxiet y Take 1 tablet (0.5 mg total) by mouth 2 (two) times a day as needed for anxiety Therapy completed 12/16/2023 02/01/2024 FLUoxetine (PROzac) 20 mg capsule Take 1 capsule (20 mg total) by mouth daily Therapy completed 09/02/2023 02/01/2024 documented as of this encounter Historical Medications * This list may reflect changes made after this encounter. FLUoxetine (PROzac) 40 mg capsule Take 1 capsule (40 mg total) by mouth daily 0 01/27/2024 ALPRAZolam (XANAX) 0.25 mg tablet 0 01/19/2024 added in this encounter Orders Outpatient Referral Count Last Ordered Date Fir st Ordered Date AMB REFERRAL TO CARDIOLOGY 1 02/01/2024 documented in this encounter Care Teams Marble Mechanic Helper Relationship Specialty Start Date End Date Cuba Larsen MD PCP - General Family Medicine 01/23/22 Chris Mendes MD Referring Physician Cardiology 12/23/21 Keli Orozco, telemarketing representative Failure Coordinator Transplant 04/15/23 Tami Mcknight telemarketing representative Failure Coordinator Cardiology 09/14/23 documented as of this encounter
--- OUTSIDE RECORDS SUMMARY | 2024-03-13 01:07 | XMS_ITS | Referral Summary ---
Author Organization [facility] Address [address] [place] [address] Care Team Providers Care Scallop Shucker Name Role Phone Chris Mendes MD Unavailable [phone] Cuba Larsen MD Primary Care Provider [phone] Keli Orozco RN Unavailable Unavailable Tami Mcknight RN Unavailable Unavailab le Encounters Date Type Department Care Team Description 02/26/2024 Orders Only [facility] Information Management [address] [place] [address] Cuba Larsen MD 02/22/2024 Telephone [facility] Family Medicine at [address] [place] [address] Cuba Larsen MD Referral Request 02/18/2024 Orders Only [facility] Cardiology [address] [place] [address] Magnolia Rico NP 02/15/2024 Orders Only [facility] Cardiology [address] [place] [address] Catarino Ramirez MD 02/13/2024 Orders Only [facility] Information Management [address] [place] [address] Cuba Larsen MD 02/11/2024 Orders Only [facility] Health Information Management [address] [place] [address] Cuba Larsen MD 02/10/2024 Orders Only [facility] Health Information Management [address] [place] [address] Cuba Larsen MD 02/08/2024 ACO Clinical Pharmacist [facility] Accountable Care Organization [address] [place] [address] Racquel Nance RPh 02/05/2024 Telephone [facility] Cardiology [address] [facility] Medicine 8th [place] [address] [place] [phone] Chris Mendes MD LAAO IOV 02/03/2024 Orders Only [facility] and [facility] Transplant Heart [address] [facility] [phone] [place] [address] Keli Orozco RN Paroxysmal atrial fibrillation (CMS/HCC) (HCC) (Primary Dx) 02/01/2024 1:20 PM DELIVERY SUPERVISOR Office Visit [facility] Cardiology [address] [facility] 8th [place] [address] [place] [address] Chris Mendes MD Other hyperlipidemia (Primary Dx); Mitral valve prolapse; Essential hypertension 01/19/2024 Telephone [facility] Family Medicine at [address] [place] [phone] Cuba Larsen MD Referral Request 01/18/2024 2:00 PM DELIVERY SUPERVISOR - 01/18/2024 11:59 PM DELIVERY SUPERVISOR Hospital Encounter [facility] [address] [place] [address] Closed displaced fracture of left femoral neck (HCC) Discharge Disposition: Discharge to home or self care 01/18/2024 2:15 PM DELIVERY SUPERVISOR Office Visit [facility] Orthopaedic Surgery [address] [facility] Advanced Medicine 6th [place] [address] [place] [phone] Homer Villalobos MD Closed displaced fracture of left femoral neck (HCC) (Primary Dx); Open intertrochanteric fracture of left femur, sequela 01/15/2024 Telephone [facility] Medicine at [address] [place] [phone] Cuba Larsen MD Referral Request 01/05/2024 Telephone [facility] at [address] [place] [phone] Cuba Larsen MD 1st no show letter sent 01/05/24 01/04/2024 Telephone [facility] Scheduling [address] [place] [address] Gilda Hollingsworth DNP Scheduling Appointments 12/25/2023 Telephone [facility] at [address] [address] Cuba Larsen MD Medical Question/Miscellaneous 12/08/2023 11:19 AM CDT - 12/16/2023 6:50 PM CDT Hospital Encounter [address] [address] Steve Huber MD Stickles, MD Misael Sky Christian Robert Waters, MD Kronfli, Kevin Benton MD Closed displaced fracture of left femoral neck (HCC) (Primary Dx); Contusion of left shoulder, initial encounter; Fall, initial encounter; Fall from standing, initial encounter; 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); Primary hypertension; Obstructive sleep apnea on CPAP; History of CAD (coronary artery disease); History of diabetes mellitus; Closed nondisplaced intertrochanteric fracture of left femur, initial encounter ([facility]); Anxiety; Hyponatremia Discharge Disposition: Discharge to SNF from Last 3 Months Allergies Active Allergy Reactions Criticality Noted Date Comments Prasanth Inhibitors Cough Reaction: COUGH, Amlodipine Shortness of breath High 07/21/2019 Citalopram Lisinopril Lisinopril-Hydrochloro thiazide Dizziness,Nausea only Low 05/13/2021 Dizzy, nauseated Medications CALCIUM CARBONATE ORAL Take 600 mg by mouth 2 (two) times a day Active blood-glucose meter miscIndication s:Type 2 diabetes mellitus without complication, without long-term current use of insulin ([facility]) ([facility]) Use daily or as directed for monitoring of diabetes. 1 each 03/19/19 24 Active blood glucose diagnostic (glucose blood) stripIndicatio ns:Type 2 diabetes mellitus without complication, without long-term current use of insulin ([facility]) ([facility]) One strip daily to check glucose 100 each 1 03/19/19 24 025 Active lancets miscIndication s:Type 2 diabetes mellitus without complication, without long-term current use of insulin ([facility]) ([facility]) 1 each by other route daily [...] 12/15 Na 129 - Recheck BMP at [facility] in 1 week Acute blood loss anemia [...] Hgb stable at 7.7 (7.7), DC to [facility] Treatment Plan: done 12/15 Encounter for medication review 12/09/2023 Assessment & Plan (12/09/2023 6:13 AM CDT): Medications reviewed and updated in admissions tab Home pharmacy [facility] DNR (do not resuscitate) 12/09/2023 Assessment & Plan (12/09/2023 11:49 AM CDT): Patient wishes to be DNR after OR Advanced care planning/counseling discussion Assessment & Plan (12/10/2023 8:48 AM CDT): Discussed with patient at bedside regarding code status. She does not have paperwork with her, however she would like to remain DNR/DNI after surgery today. Spoke with brother, Shahram armstrong 12/08 who also supported patients decision for [...] s nuno as late effect of stroke ([facility]) 10/11/2021 History of nephrolithiasis 03/21/2021 Assessment & Plan (06/02/2021 9:51 AM CDT): History of kidney stones with recent lithotripsy. Patient has follow-up with Urology for continued management of the kidney stones. Assessment & Plan (03/21/2021 12:52 PM DELIVERY SUPERVISOR): Will arrange for stat CT abdomen pelvis [...] monitor. Assessment & Plan (03/12/2021 7:23 PM DELIVERY SUPERVISOR): Increase prozac dosing Advised finding hobbies to help take her mind off of world events Assessment & Plan (02/05/2021 5:41 PM DELIVERY SUPERVISOR): Add prozac every day, continue with prn [...] time Assessment & Plan (03/12/2021 7:23 PM DELIVERY SUPERVISOR): Continue with prn ambien Assessment & Plan (02/05/2021 5:42 PM DELIVERY SUPERVISOR): Continue with prn ambien Assessment & Plan [...] mcg Assessment & Plan (03/12/2021 7:22 PM DELIVERY SUPERVISOR): Will evaluate further with labs Continue meds [...] Type 2 diabetes mellitus without complications ( [facility]/HCC) 05/31/2019 Assessment & Plan (12/10/2023 7:01 AM [...] available Assessment & Plan (03/12/2021 7:22 PM DELIVERY SUPERVISOR): Continue medications same at this time Encouraged heart healthy diet Advised increasing frequency of eating Assessment & Plan (02/05/2021 5:42 PM DELIVERY SUPERVISOR): Stable, continue meds same at this time [...] report the blood pressure readings to her systems administration analyst. Assessment & Plan (07/15/2021 5:40 PM CDT): Continue with care per systems administration analyst Assessment & Plan (06/17/2021 1:09 PM CDT): [...] Plan (08/21/2020 4:37 PM CDT): Managed by systems administration analyst, continue medication same at this time Assessment [...] 25 mg PO BID Follow up scheduled: [facility] Cardiology 01/31 at 1:20 Assessment & Plan (08/21/2020 4:37 PM CDT): Managed by systems administration analyst, has pet/ct stress this week. Essential tremor [...] She has pending referral for ortho Declines at this time She will continue with [facility] boot Assessment & Plan (06/02/2021 9:54 AM CDT): Patient sustained a distal fibular fracture after falling related to the stroke. She is currently in a boot. She needs to see Orthopedics and has been scheduled at [facility] that would prefer to be seen [place]. Will make referral to Ortho in [place] for definitive management of this ankle fracture. Kidney stone 05/21/2021 10/09/2022 Acute left flank pain 03/21/20212021 Assessment & Plan (03/21/2021 12:52 PM DELIVERY SUPERVISOR): Will arrange for stat CT abdomen pelvis without contrast in stat labs today. Will notify patient of the results as they become available. She was advised to report to the ER in the interim if symptoms are worsening. Acute cystitis with hematuria 03/12/2021 10/21/2021 Assessment & Plan (03/21/2021 12:52 PM DELIVERY SUPERVISOR): Will arrange for stat CT abdomen pelvis without contrast in stat labs today. Will notify patient of the results as they become available. She was advised to report to the ER in the interim if symptoms are worsening. Assessment & Plan (03/12/2021 7:25 PM DELIVERY SUPERVISOR): We reviewed poc ua. Will culture urine, will notify her of results as available. Advised to f/u in next week if not improving, sooner if worsening. BMI 29.0-29.9,adult 03/12/2021 06/04/19 Weight loss 03/12/2021 08/13/2022 Assessment & Plan (03/12/2021 7:24 PM DELIVERY SUPERVISOR): Will evaluate further with labs and imaging, [...] 08/13/2022 Assessment & Plan (03/12/2021 7:23 PM DELIVERY SUPERVISOR): Will evaluate further with labs and imaging, [...] 12:18 PM CDT): Currently being evaluated by systems administration analyst, cardiac cath pending. Will also refer to research microbiologist for further evaluation and treatment. BMI 30.0-30.9,adult [...] depression Assessment & Plan (03/12/2021 7:22 PM DELIVERY SUPERVISOR): Will increase strength of xanax, encouraged using prn Assessment & Plan (02/05/2021 5:41 PM DELIVERY SUPERVISOR): Add prozac every day, continue with prn [...] often. We discussed not using concomitantly with ambien, advised alternatives. Will start by changing to wellbutrin to see if depression/anxiety is better controlled. Vitamin D deficiency 08/21/2020 023 Assessment & Plan (08/21/2020 4:36 PM CDT): Fasting labs entered, will notify patient of results as available Encounter to establish care 08/21/2020 10/21/2021 Pulmonary embolism 06/10/2019 3 Acute on chronic systolic CH F (congestive heart failure) ([facility]) 06/08/2019 02/13/2022 Non-ST elevation (NSTEMI) my ocardial infarction ([facility]) 06/08/2019 08/13/2022 Chronic combined systolic (c ongestive) and diastolic (congestive) heart failure 06/05/2019 Hypertensive heart disease w ith heart failure (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 Discussed the patient's BMI. The BMI is above average. BMI management plan is completed. BMI Follow-up includes: nutrition counseling, exercise counseling and education provided. Immunizations Name Administration Dates Next Due Influenza, [...] Adjuvanted, PF, IM (Arexvy) 10/28/2023 Tdap 05/21/2019 Social History Tobacco Use Types Packs/Day Years [...] on file Legal Sex Female 4:20 AM DELIVERY SUPERVISOR Gender Identity Not on file Sexual Orientation Not on file Last Filed Vital Signs Vital Sign Reading Time Taken Comments Blood Pressure 95/58 02/01/2024 1:39 PM DELIVERY SUPERVISOR Pulse 81 02/01/2024 1:39 PM DELIVERY SUPERVISOR Temperature 36.1 ??C (97 ??F) 12/16/2023 5:14 PM CDT Respiratory Rate 18 12/16/2023 6:20 PM CDT Oxygen Saturation 95% 02/01/2024 1:39 PM DELIVERY SUPERVISOR Inhaled Oxygen Concentration - - Weight 81.6 kg (180 lb) 02/01/2024 1:39 PM DELIVERY SUPERVISOR Height 157.5 cm (5' 2 ) 02/01/2024 1:39 PM DELIVERY SUPERVISOR Body Mass Index 32.92 02/01/2024 1:39 PM DELIVERY SUPERVISOR Plan of Treatment Not on file Medical Devices Implanted Type Area [employer]ig[employer] Packer [employer] Shader Device Identifier Shelf Expiration Date Model / Serial / Lot Plate-07/29/2015 Implanted:07/28 (Quantity not on file) Plate Left: Wrist Screw-07/29/2015 Implanted:07/28 (Quantity not on file) Screw Left: Wrist Description:x2 Synthes 4.5mm 8mm 40mm Self Tap Large Hexagonal Socket Cortex Screw Bone 214.840 - [id number] Implanted:Qty: 1 on 12/09/2023 by Homer Villalobos MD at [facility] Screw Left: Femur Synthes 214.840 / / [employer] 6191-1-010 Simplex P Radiopaque Full Dose Cement Bone Sterile - [id number] Implanted:Qty: 1 on 05/25/2019 by Kaveh Charles MD at [facility] Left: Femur [employer] 01/13/2021 6191-1-010 / / [id number] [employer] 6191- Simplex P Radiopaque Full Dose Cement Bone Sterile - [id number] Implanted:Qty: 1 on 05/25/2019 by Kaveh Charles MD at [facility] Left: Femur [employer] 03/15/2021 6191-010 / / [id number] [employer] [id number] Most Ii H14 Mm Rotating Hinge; Segment; Machine Mold Knee B Inser - [id number] Implanted:Qty: 1 on 05/25/2019 by Kaveh Charles MD at [facility] Left: Knee [employer] [id number] 02/12/2025 [id number] / / [id number] [employer] [id number] Xt Knee B Insert Tibial Polyethylene - [id number] Implanted:Qty: 1 on 05/25/2019 by Kaveh Charles MD at [facility] Left: Femur [employer] [id number] 04/15/2027 36-3367-989-9 6 / / [id number] Cmpnt Fem B Knee Left Albert Strl Segmental System - [id number] Implanted:Qty: 1 on 05/25/2019 by Kaveh Charles MD at [facility] Left: Femoral [employer] [id number] 04/15/2027 [id number] / / [id number] [employer]/O rtho 198643 Prep-Im Plug [place] Sponge Suction Hip Kit Thr Latex Free - [id number] Implanted:Qty: 1 on 05/25/2019 by Kaveh Charles MD at [facility] Left: Femur [employer]/ Ortho [id number] / / [employer] 6191- Simplex P Radiopaque Full Dose Cement Bone Sterile - [id number] Implanted:Qty: 1 on 05/25/2019 by Kaveh Charles MD at [facility] Left: Femur [employer] 01/13/2021 6191-010 / / [id number] [employer] 6191-1-010 Simplex P Radiopaque Full Dose Cement Bone Sterile - [id number] Implanted:Qty: 1 on 05/25/2019 by Kaveh Charles MD at [facility] Left: Femur [employer] 12/13/2020 6191-1-010 / / [id number] [employer] [id number] Nexgen 08g79mi Rotating Hinge Knee 2 Plate Tibial Zimaloy Pmma - [id number] Implanted:Qty: 1 on 05/25/2019 by Kaveh Charles MD at [facility] Left: Tibia [employer] [id number] 01/13/2023 [id number] / / [id number] [employer] [id number] 35mm Collar Knee Component Segmental Trabecular Metal 9-16mm Stem - [id number] Implanted:Qty: 1 on 05/25/2019 by Kaveh Charles MD at [facility] Left: Tibia [employer] [id number] 02/12/2023 [id number] / / [id number] [employer] [id number] Nexgen 13mm 130mm Cemented Segmental Knee Femur Straight Flute - [id number] Implanted:Qty: 1 on 05/25/2019 by Kaveh Charles MD at [facility] Left: Tibia [employer] [id number] 09/12/2028 [id number] / / [id number] [employer] Angio-Seal Vip Bondek-Plus 8fr .038in 70cm Hemostatic Latex Free 108245 - [id number] Implanted:Qty: 1 on 08/07/2023 by Mor Riley MD at [facility] [employer] 04/07/2024 [id number] / / [id number] Synthes Dhs/Dcp 174mm 38mm 10 Hole Hip Condyle 130d Standard Barrel Plate 281.010s - [id number] Implanted:Qty: 1 on 12/09/2023 by Homer Villalobos MD at [facility] Left: Femur [employer] [id number] 04/15/2029 281.010S / / [id number] Synthes 4.5mm 8mm 38mm Self Tap Large Hexagonal Socket Cortex Screw Bone 214.838 - [id number] Implanted:Qty: 1 on 12/09/2023 by Homer Villalobos MD at [facility] Left: Femur Synthes 214.838 / / Synthes Dhs Dcs 36mm Compression Hip Condylar Screw Bone Stainless Steel 280.990 - [id number] Implanted:Qty: 1 on 12/09/2023 by Homer Villalobos MD at [facility] Left: Femur Synthes 280.990 / / Synthes 1.7mm 750mm Crimp Cerclage Cable Orthopedic Stainless Steel 298.801.01s - [id number] Implanted:Qty: 1 on 12/09/2023 by Homer Villalobos MD at [facility] Left: Femur [employer] [id number] 09/12/2028 298.801.01S / / [id number] Synthes Dhs Dcs 12mm 8mm 2.7mm 90mm 22mm Lag Cannulated Hip Condylar 280.290 - [id number] Implanted:Qty: 1 on 12/09/2023 by Homer Villalobos MD at [facility] Left: Femur Synthes 280.290 / / Procedures Procedure Name Priority Date/Time Associated Diagnosis Comments SCAN - RADIOLOGY/IMAGING 02/26/2024 CARDIOLOGY DOCUMENT SCAN Routine 02/17/2024 2:22 PM DELIVERY SUPERVISOR CARDIOLOGY DOCUMENT SCAN Routine 02/15/2024 2:18 PM DELIVERY SUPERVISOR CARDIOLOGY DOCUMENT SCAN Routine 02/14/2024 6:35 PM DELIVERY SUPERVISOR SCAN - RADIOLOGY/IMAGING 02/13/2024 CARDIOLOGY DOCUMENT SCAN 02/12/2024 SCAN - RADIOLOGY/IMAGING 02/11/2024 SCAN - RADIOLOGY/IMAGING 02/10/2024 XR FEMUR LEFT 2 OR MORE VIEWS Schedule Routine, Read Routine (OP Routine) 01/18/2024 2:34 PM DELIVERY SUPERVISOR Closed displaced fracture of left femoral neck [...] AM CDT POCT GLUCOSE DEVICE Routine 12/14/2023 8 :16 AM CDT CBC WITHOUT DIFFERENTIAL Routine 12/14/2023 [...] CREATININE RATIO, URINE Routine 02/23/2023 11:01 AM DELIVERY SUPERVISOR Type 2 diabetes mellitus without complication, without long-term current use of insulin ([facility]) ([facility]) HM DIABETES EYE EXAM Routine 12/10/2022 from Last 3 Months or Most Recently Relevant to Health Maintenance Results * SCAN - RADIOLOGY/IMAGING (02/26/2024) Anatomical Region Laterality Modality Other us Cuba Larsen MD Edited Result - Final * Cardiology Document Scan (02/17/2024 2:22 PM DELIVERY SUPERVISOR) Anatomical Region Laterality Modality Other us Abhijit Devlin MD [facility] [place] Final Result * Cardiology Document Scan (02/15/2024 2:18 PM DELIVERY SUPERVISOR) Anatomical Region Laterality Modality Other us Magnolia Rico NP [facility] PROCEDUR ES Final Result * Cardiology Document Scan (02/14/2024 6:35 PM DELIVERY SUPERVISOR) Anatomical Region Laterality Modality Other Catarino Ramirez MD [facility] PROCEDU RES Final Result * SCAN - RADIOLOGY/IMAGING (02/13/2024) Anatomical Region Laterality Modality Other Result [facility] Cuba Larsen MD Edited Result - Final * Cardiology Document Scan (02/12/2024) Anatomical Region Laterality Modality Other Result [facility] Cuba Larsen MD [facility] PROCEDURE S Final Result * SCAN - RADIOLOGY/IMAGING (02/11/2024) Anatomical Region Laterality Modality Other Result [facility] Cuba Larsen MD Edited Result - Final * SCAN - RADIOLOGY/IMAGING (02/10/2024) Anatomical Region Laterality Modality Other Result [facility] Cuba Larsen MD Edited Result - Final * XR Femur Left 2 or More Views (01/18/2024 2:34 PM DELIVERY SUPERVISOR) Anatomical Region Laterality Modality Lower Extremities, Thigh, Femur Left Computed Radiography 01/18/2024 2:47 PM DELIVERY SUPERVISOR Impressions 01/18/2024 2:47 PM DELIVERY SUPERVISOR 1. ??Healing internally fixated left femur intertrochanteric fracture. Electronically signed by: Rayray Matthews MD Narrative 01/18/2024 2:47 PM DELIVERY SUPERVISOR EXAMINATION: XR FEMUR LEFT 2 OR MORE [...] (ABNORMAL) POCT glucose (12/16/2023 5:11 PM CDT) Pathologist [facility] Glucose, POC 282(H) 70 - 199 mg/dL Blood 12/16/2023 5:11 PM CDT 12/16/2023 5:11 PM CDT Kevin Anne MD LAB POCT ORDERABLES - DEVICE Final Result Performing Organization Address [facility] Co de Phone Number [facility] Department [place] [address] * (ABNORMAL) POCT glucose (12/16/2023 11:18 AM CDT) [facility] Glucose, POC 286(H) 70 - 199 mg/dL Blood 12/16/2023 11:1 8 AM CDT 12/16/2023 11:18 AM CDT Result [facility] Kevin Anne MD LAB POCT ORDERABLES - DEVICE Final Result Performing Organization Address City/[facility] Co de Phone Number [facility] [place] [address] * COVID-19 Coronavirus RNA Nasopharyngeal (12/16/2023 10:15 AM CDT) [facility] COVID-19 RNA Negative Negative [facility] Nasopharyngeal 12/16/2023 10 :15 AM CDT 12/16/2023 10:33 AM CDT Narrative [facility] - 12/16/2023 11:27 AM CDT Is the patient experiencing any symptoms consistent with COVID (eg. Fever, cough, shortness of breath)?->No What is the reason for testing?->Screening for post-acute care placement ??Interpretive data Testing performed by [facility] ([phone]). This test is performed using the Linkdex Xpert Xpress CoV-2 plus assay. This is a real-time RT-PCR test intended for the qualitative detection of nucleic acid from the SARS-CoV-2. This assay has been cleared by the [place] Food and Drug administration. The performance characteristics have been verified by the [facility]. ??Results must be considered in the clinical context, and a negative result does not rule out infection. Interpretive data last revised 2023. Danette Causey NP LAB MICROBIOLOGY - GENE RAL ORDERABLES Final Result Performing Organization Address City/[facility]/ZIP Co de Phone Number [facility] Department [place] [address] [facility] * Type and screen (12/16/2023 9:21 AM CDT) Pathologist [facility] Gian, indirect Negative ABO Rh O Positive [facility] Blood 12/16/2023 9:21 AM CDT 12/16/2023 9:35 AM CDT Narrative [facility] - 12/16/2023 10:34 AM CDT Has the patient had Daratumumab or Isatuximab in the past 6 months?->Unknown Danette Causey NP LAB BLOOD BANK TEST ORD ERABLES Final Result [facility] [place] [address] * (ABNORMAL) CBC without differential (12/16/2023 8:20 AM CDT) WBC 8.5 3.8 - 9.9 K/cumm Hgb 7.7(L) 11.9 - 15.5 g/dL [facility] Hct 23.4(L) 35.6 - 45.5 % [facility] Plt 237 150 - 400 K/cumm [facility] MPV 9.7 9.1 - 12.3 fL [facility] RBC 2.43(L) 3.90 - 5.20 M/cumm [facility] MCV 96.3 81.3 - 96.4 fL [facility] MCH 31.7 27.1 - 33.3 pg [facility] MCHC 32.9 32.3 - 35.7 g/dL [facility] RDW CV 15.4(H) 11.1 - 14.9 % [facility] RDW SD 52.3(H) 35.7 - 48.1 fL [facility] NRBC abs 0.06(H) 0.00 - 0.01 K/cumm [facility] Blood 12/16/2023 8:20 AM CDT 12/16/2023 8:29 AM CDT us Danette Causey NP LAB BLOOD ORDERABLES Fi nal Result [facility] Department [place] [address] * Mislabeled Test (12/16/2023 8:14 AM CDT) Location Other location Reason Label discrepancy [facility] Mislabel resolution Testing canceled [facility] Blood 12/16/2023 8:14 AM CDT 12/16/2023 8:30 AM CDT us Kevin Anne MD LAB BLOOD ORDERABLES F inal Result [facility] [place] [address] * POCT glucose (12/16/2023 7:50 AM CDT) Glucose, POC 176 70 - 199 mg/dL Blood 12/16/2023 7:50 AM CDT 12/16/2023 7:50 AM CDT Kevin Anne MD LAB POCT ORDERABLES - DEVICE Final Result Performing Organization Address [facility] de Phone Number [facility] [place] [address] * Potassium, whole blood (12/15/2023 11:54 PM CDT) [facility] Potassium, bld 4.8 3.3 - 4.9 mmol/L Blood 12/15/2023 11:5 4 PM CDT 12/16/2023 12:07 AM CDT Kevin Anne MD LAB BLOOD ORDERABLES F inal Result Performing Organization Address [facility] de Phone Number [facility] [place] [address] * (ABNORMAL) POCT glucose (12/15/2023 9:08 PM CDT) [facility] Glucose, POC 223(H) 70 - 199 mg/dL Blood 12/15/2023 9:08 PM CDT 12/15/2023 9:08 PM CDT Kevin Anne MD LAB POCT ORDERABLES - DEVICE Final Result Performing Organization Address [facility] de Phone Number [facility] [place] [address] * eGFR (12/15/2023 8:48 PM CDT) [facility] eGFR 89 >=60 mL/min/1. 73 m2 Comment: [...] MD LAB BLOOD ORDERABLES F inal Result [facility] Department [place] [address] * (ABNORMAL) CBC without differential (12/15/2023 8:48 PM CDT) Pathologist [facility] WBC 7.8 3.8 - 9.9 K/cumm Hgb 7.7(L) 11.9 - 15.5 g/dL [facility] Hct 24.0(L) 35.6 - 45.5 % [facility] Plt 220 150 - 400 K/cumm [facility] MPV 9.6 9.1 - 12.3 fL [facility] RBC 2.51(L) 3.90 - 5.20 M/cumm [facility] MCV 95.6 81.3 - 96.4 fL [facility] MCH 30.7 27.1 - 33.3 pg [facility] MCHC 32.1(L) 32.3 - 35.7 g/dL [facility] RDW CV 15.4(H) 11.1 - 14.9 % [facility] RDW SD 51.8(H) 35.7 - 48.1 fL [facility] NRBC abs 0.08(H) 0.00 - 0.01 K/cumm [facility] Blood 12/15/2023 8:48 PM CDT 12/15/2023 9:05 PM CDT Kevin Anne MD LAB BLOOD ORDERABLES F inal Result Performing Organization Address City/[facility] Co de Phone Number [facility] Department [place] [address] * Phosphorus (12/15/2023 8:48 PM CDT) Phosphorus, pl 3.5 2.3 - 4.5 mg/dL Blood 12/15/2023 8:48 PM CDT 12/15/2023 9:05 PM CDT Kevin Anne MD LAB BLOOD ORDERABLES F inal Result Performing Organization Address City/[facility] Co de Phone Number [facility] Department [place] [address] * Magnesium (12/15/2023 8:48 PM CDT) Magnesium 2.0 1.4 - 2.5 mg/dL Blood 12/15/2023 8:48 PM CDT 12/15/2023 9:05 PM CDT Kevin Anne MD LAB BLOOD ORDERABLES F inal Result Performing Organization Address City/[facility]/ZIP Co de Phone Number CERNER [facility] Department [place] [address] * (ABNORMAL) Basic metabolic panel (12/15/2023 8:48 PM CDT) Sodium 129(L) 135 - 145 mmol/L Potassium, pl 5.3(H) 3.3 - 4.9 mmol/L [facility] Chloride 95(L) 97 - 110 mmol/L [facility] CO2 27 22 - 32 mmol/L [facility] Anion gap 7 2 - 15 mmol/L [facility] BUN 26(H) 6 - 25 mg/dL [facility] Creatinine 0.62 0.60 - 1.10 mg/dL [facility] Glucose 214(H) 70 - 199 mg/dL [facility] Comment: Interpretive Data Fasting glucose >/= [...] 2022. Calcium 9.1 8.5 - 10.3 mg/dL [facility] Blood 12/15/2023 8:48 PM CDT 12/15/2023 9:05 PM CDT us Kevin Anne MD LAB BLOOD ORDERABLES F inal Result MINDI [facility] Department [place] [address] * POCT glucose (12/15/2023 5:43 PM CDT) Glucose, POC 196 70 - 199 mg/dL Blood 12/15/2023 5:43 PM CDT 12/15/2023 5:43 PM CDT Kevin Anne MD LAB POCT ORDERABLES - DEVICE Final Result Performing Organization Address [facility] Co de Phone Number [facility] [place] [address] * (ABNORMAL) POCT glucose (12/15/2023 11:37 AM CDT) Glucose, POC 240(H) 70 - 199 mg/dL Blood 12/15/2023 11:3 7 AM CDT 12/15/2023 11:37 AM CDT Kevin Anne MD LAB POCT ORDERABLES - DEVICE Final Result Performing Organization Address [facility] Co de Phone Number [facility] Department [place] [address] * POCT glucose (12/15/2023 7:47 AM CDT) Glucose, POC 183 70 - 199 mg/dL Blood 12/15/2023 7:47 AM CDT 12/15/2023 7:47 AM CDT Kevin Anne MD LAB POCT ORDERABLES - DEVICE Final Result Performing Organization Address [facility] Co de Phone Number [facility] [place] [address] * (ABNORMAL) Potassium, whole blood (12/15/2023 12:25 AM CDT) Potassium, bld 5.0(H) 3.3 - 4.9 mmol/L Blood 12/15/2023 12:2 5 AM CDT 12/15/2023 12:35 AM CDT Kevin Anne MD LAB BLOOD ORDERABLES F inal Result Performing Organization Address [facility] Co de Phone Number MINDI SMART [facility] Department of [employer] [place], [place] [id number] * eGFR (12/14/2023 9:51 PM CDT) eGFR [...] ORDERABLES F inal Result Performing Organization Address [facility] Co de Phone Number MINDI SMART [facility] Department of [employer] [place], [place] [id number] * (ABNORMAL) POCT glucose (12/14/2023 9:51 PM CDT) [facility] Glucose, POC 200(H) 70 - 199 mg/dL Blood 12/14/2023 9:51 PM CDT 12/14/2023 9:51 PM CDT Kevin Anne MD LAB POCT ORDERABLES - DEVICE Final Result Performing Organization Address [facility] Co de Phone Number [facility] [place] [address] * (ABNORMAL) CBC without differential (12/14/2023 9:51 PM CDT) [facility] WBC 7.3 3.8 - 9.9 K/cumm Hgb 8.3(L) 11.9 - 15.5 g/dL [facility] Hct 24.9(L) 35.6 - 45.5 % [facility] Plt 177 150 - 400 K/cumm [facility] MPV 9.6 9.1 - 12.3 fL [facility] RBC 2.63(L) 3.90 - 5.20 M/cumm [facility] MCV 94.7 81.3 - 96.4 fL [facility] MCH 31.6 27.1 - 33.3 pg [facility] MCHC 33.3 32.3 - 35.7 g/dL [facility] RDW CV 15.4(H) 11.1 - 14.9 % [facility] RDW SD 51.4(H) 35.7 - 48.1 fL [facility] NRBC abs 0.04(H) 0.00 - 0.01 K/cumm [facility] Blood 12/14/2023 9:51 PM CDT 12/14/2023 10:27 PM CDT Kvein Anne MD LAB BLOOD ORDERABLES F inal Result Performing Organization Address City/[facility]/ZIP Co de Phone Number [facility] Department [place] [address] * Phosphorus (12/14/2023 9:51 PM CDT) [facility] Phosphorus, pl 2.4 2.3 - 4.5 mg/dL Blood 12/14/2023 9:51 PM CDT 12/14/2023 10:27 PM CDT Kevin Anne MD LAB BLOOD ORDERABLES F inal Result [facility] [place] [address] * Magnesium (12/14/2023 9:51 PM CDT) [facility] Magnesium 2.1 1.4 - 2.5 mg/dL Blood 12/14/2023 9:51 PM CDT 12/14/2023 10:27 PM CDT Kevin Anne MD LAB BLOOD ORDERABLES F inal Result Performing Organization Address City/[facility] [place] [address] * (ABNORMAL) Basic metabolic panel (12/14/2023 9:51 PM CDT) [facility] Sodium 128(L) 135 - 145 mmol/L Potassium, pl 5.3(H) 3.3 - 4.9 mmol/L [facility] Chloride 97 97 - 110 mmol/L [facility] CO2 28 22 - 32 mmol/L [facility] Anion gap 3 2 - 15 mmol/L [facility] BUN 21 6 - 25 mg/dL [facility] Creatinine 0.53(L) 0.60 - 1.10 mg/dL [facility] Glucose 180 70 - 199 mg/dL [facility] Comment: Interpretive Data Fasting glucose >/= [...] 2022. Calcium 8.9 8.5 - 10.3 mg/dL [facility] Blood 12/14/2023 9:51 PM CDT 12/14/2023 10:27 PM CDT Kevin Anne MD LAB BLOOD ORDERABLES F inal Result Performing Organization Address [facility] Co de Phone Number [facility] Department [place] [address] * POCT glucose (12/14/2023 5:25 PM CDT) Glucose, POC 173 70 - 199 mg/dL Blood 12/14/2023 5:25 PM CDT 12/14/2023 5:25 PM CDT Kevin Anne MD LAB POCT ORDERABLES - DEVICE Final Result Performing Organization Address [facility] de Phone Number [facility] Department [place] [address] * (ABNORMAL) POCT glucose (12/14/2023 11:51 AM CDT) Glucose, POC 267(H) 70 - 199 mg/dL Blood 12/14/2023 11:5 1 AM CDT 12/14/2023 11:51 AM CDT Kevin Anne MD LAB POCT ORDERABLES - DEVICE Final Result Performing Organization Address [facility] Co de Phone Number [facility] Department [place] [address] * (ABNORMAL) POCT glucose (12/14/2023 8:16 AM CDT) [facility] Glucose, POC 200(H) 70 - 199 mg/dL Blood 12/14/2023 8:16 AM CDT 12/14/2023 8:16 AM CDT Kevin Anne MD LAB POCT ORDERABLES - DEVICE Final Result [facility] [place] [address] * (ABNORMAL) CBC without differential (12/14/2023 3:20 AM CDT) [facility] WBC 7.5 3.8 - 9.9 K/cumm Hgb 8.1(L) 11.9 - 15.5 g/dL [facility] Hct 24.8(L) 35.6 - 45.5 % [facility] Plt 170 150 - 400 K/cumm [facility] MPV 10.1 9.1 - 12.3 fL [facility] RBC 2.63(L) 3.90 - 5.20 M/cumm [facility] MCV 94.3 81.3 - 96.4 fL [facility] MCH 30.8 27.1 - 33.3 pg [facility] MCHC 32.7 32.3 - 35.7 g/dL [facility] RDW CV 15.0(H) 11.1 - 14.9 % [facility] RDW SD 50.9(H) 35.7 - 48.1 fL [facility] NRBC abs 0.02(H) 0.00 - 0.01 K/cumm [facility] Blood 12/14/2023 3:20 AM CDT 12/14/2023 4:09 AM CDT Narrative [facility] - 12/14/2023 4:16 AM CDT 1 hour after transfusion of red blood cells is complete us Kevin Anne MD LAB BLOOD ORDERAB[place] [address] * POCT glucose (12/14/2023 3:12 AM CDT) Glucose, POC 170 70 - 199 mg/dL Blood 12/14/2023 3:12 AM CDT 12/14/2023 3:12 AM CDT Kevin Anne MD LAB POCT ORDERABLES - DEVICE Final Result Performing Organization Address [facility] Co de Phone Number [facility] [place] [address] * Transfuse RBC (12/14/2023 2:21 AM CDT) Blood Kevin Anne MD BLOOD TRANSFUSION ORDE RABLES Final Result Performing Organization Address City/[facility]/ZIP Co de Phone Number [facility] Department [place] [address] * POCT glucose (12/13/2023 11:29 PM CDT) [facility] Signature Glucose, POC 185 70 - 199 mg/dL Blood 12/13/2023 11:2 9 PM CDT 12/13/2023 11:29 PM CDT us Kevin Anne MD LAB POCT ORDERABLES - DEVICE Final Result Performing Organization Address [facility] Co de Phone Number [facility] [place] [address] * (ABNORMAL) Potassium, whole blood (12/13/2023 10:32 PM CDT) [facility] Potassium, bld 5.1(H) 3.3 - 4.9 mmol/L Blood 12/13/2023 10:3 2 PM CDT 12/13/2023 10:45 PM CDT Kevin Anne MD LAB BLOOD ORDERABLES F inal Result Performing Organization Address [facility] de Phone Number [facility] Department [place] [address] * Prepare RBC: 1 Units (12/13/2023 9:45 PM CDT) [facility] Product code [id number] Unit Number [id number] [facility] Product Blood Type OPOS [facility] Dispense Status PRESUMED TRANSFUSED [facility] Blood 12/13/2023 9:45 PM CDT 12/13/2023 9:45 PM CDT Narrative [facility] - 12/14/2023 11:10 AM CDT Are special requirements needed? (All products are leukoreduced and CMV- safe)- >No Date required:-[id number] LRRBC # of [id number] Reasons:-Hgb <7 g/dL} Kevin Anne MD BLOOD BANK PRODUCT ORD ERABLES Final Result Performing Organization Address [facility] Co de Phone Number [facility] Department [place] [address] * eGFR (12/13/2023 9:00 PM CDT) [facility] eGFR 89 >=60 mL/min/1. 73 m2 Comment: [...] data was last reviewed 2021. Blood 12/13/2023 9:0 0 PM CDT 12/13/2023 9:22 PM CDT us Kevin Anne MD LAB BLOOD ORDERABLES F inal Result [facility] Department [place] [address] * (ABNORMAL) CBC without differential (12/13/2023 9:00 PM CDT) Pathologist [facility] WBC 7.4 3.8 - 9.9 K/cumm Hgb 7.0(L) 11.9 - 15.5 g/dL [facility] Hct 21.3(L) 35.6 - 45.5 % [facility] Plt 158 150 - 400 K/cumm [facility] MPV 9.9 9.1 - 12.3 fL [facility] RBC 2.23(L) 3.90 - 5.20 M/cumm [facility] MCV 95.5 81.3 - 96.4 fL [facility] MCH 31.4 27.1 - 33.3 pg [facility] MCHC 32.9 32.3 - 35.7 g/dL [facility] RDW CV 14.9 11.1 - 14.9 % [facility] RDW SD 51.1(H) 35.7 - 48.1 fL [facility] NRBC abs 0.02(H) 0.00 - 0.01 K/cumm [facility] Blood 12/13/2023 9:00 PM CDT 12/13/2023 9:22 PM CDT Kevin Anne MD LAB BLOOD ORDERABLES F inal Result Performing Organization Address City/[facility] [place] [address] * (ABNORMAL) Phosphorus (12/13/2023 9:00 PM CDT) Pathologist [facility] Phosphorus, pl 2.1(L) 2.3 - 4.5 mg/dL Blood 12/13/2023 9:00 PM CDT 12/13/2023 9:22 PM CDT Kevin Anne MD LAB BLOOD ORDERABLES F inal Result Performing Organization Address [facility] Co de Phone Number [facility] [place] [address] * Magnesium (12/13/2023 9:00 PM CDT) [facility] Magnesium 1.7 1.4 - 2.5 mg/dL Blood 12/13/2023 9:00 PM CDT 12/13/2023 9:22 PM CDT Kevin Anne MD LAB BLOOD ORDERABLES F inal Result Performing Organization Address City/[facility] Co de Phone Number [facility] [place] [address] * (ABNORMAL) Basic metabolic panel (12/13/2023 9:00 PM CDT) Sodium 131(L) 135 - 145 mmol/L Potassium, pl 5.3(H) 3.3 - 4.9 mmol/L [facility] Chloride 101 97 - 110 mmol/L [facility] CO2 26 22 - 32 mmol/L [facility] Anion gap 4 2 - 15 mmol/L [facility] BUN 28(H) 6 - 25 mg/dL [facility] Creatinine 0.61 0.60 - 1.10 mg/dL [facility] Glucose 184 70 - 199 mg/dL [facility] Comment: Interpretive Data Fasting glucose >/= [...] 2022. Calcium 8.5 8.5 - 10.3 mg/dL [facility] Blood 12/13/2023 9:00 PM CDT 12/13/2023 9:22 PM CDT Kevin Anne MD LAB BLOOD ORDERABLES F inal Result Performing Organization Address City/[facility]/ZIP Co de Phone Number [facility] Department [place] [address] * POCT glucose (12/13/2023 8:16 PM CDT) Glucose, POC 183 70 - 199 mg/dL Blood 12/13/2023 8:16 PM CDT 12/13/2023 8:16 PM CDT Kevin Anne MD LAB POCT ORDERABLES - DEVICE Final Result MINDI SMART [facility] Department [place] [address] * POCT glucose (12/13/2023 4:15 PM CDT) [facility] Glucose, POC 192 70 - 199 mg/dL Blood 12/13/2023 4:15 PM CDT 12/13/2023 4:15 PM CDT Kevin Anne MD LAB POCT ORDERABLES - DEVICE Final Result Performing Organization Address City/State/[facility] Co de Phone Number [facility] [place] [address] * eGFR (12/13/2023 1:33 PM CDT) [facility] eGFR 89 >=60 mL/min/1. 73 m2 Comment: [...] PM CDT 12/13/2023 1:49 PM CDT Parris Auraboogie Soto [employer] LAB BLOOD ORDERABLES Final Result [facility] [place] [address] * Differential, auto (12/13/2023 1:33 PM CDT) Neutrophil abs 5.1 1.5 - 6.5 K/cumm Imm gran abs 0.1 0.0 - 0.1 K/cumm [facility] Lymphocyte abs 1.3 0.8 - 3.3 K/cumm [facility] Monocyte abs 0.6 0.2 - 0.8 K/cumm [facility] Eosinophil abs 0.0 0.0 - 0.5 K/cumm [facility] Basophil abs 0.0 0.0 - 0.1 K/cumm [facility] Neutrophil pct 71.9 % [facility] Comment: Interpretive Data Percent cell count reference ranges are not reported, since discordance with absolute values may lead to misinterpretation of CBC data. Current Interpretive Data was last revised on 2017. Imm gran pct 0.7 % [facility] Comment: Interpretive Data Percent cell count reference ranges are not reported, since discordance with absolute values may lead to misinterpretation of CBC data. Current Interpretive Data was last revised on 2017. Lymphocyte pct 19.0 % [facility] Comment: Interpretive Data Percent cell count reference ranges are not reported, since discordance with absolute values may lead to misinterpretation of CBC data. Current Interpretive Data was last revised on 2017. Monocyte pct 7.8 % [facility] Comment: Interpretive Data Percent cell count reference ranges are not reported, since discordance with absolute values may lead to misinterpretation of CBC data. Current Interpretive Data was last revised on 2017. Eosinophil pct 0.3 % [facility] Comment: Interpretive Data Percent cell count reference ranges are not reported, since discordance with absolute values may lead to misinterpretation of CBC data. Current Interpretive Data was last revised on 2017. Basophil pct 0.3 % [facility] Comment: Interpretive Data Percent cell count reference ranges are not reported, since discordance with absolute values may lead to misinterpretation of CBC data. Current Interpretive Data was last revised on 2017. Blood 12/13/2023 1:33 PM CDT 12/13/2023 1:49 PM CDT Parris Soto NP LAB BLOOD ORDERABLES Final Result [facility] Department [place] [address] * (ABNORMAL) CBC with auto differential (12/13/2023 1:33 PM CDT) WBC 7.1 3.8 - 9.9 K/cumm Hgb 7.1(L) 11.9 - 15.5 g/dL [facility] Hct 21.9(L) 35.6 - 45.5 % [facility] Plt 166 150 - 400 K/cumm [facility] MPV 9.8 9.1 - 12.3 fL [facility] RBC 2.26(L) 3.90 - 5.20 M/cumm [facility] MCV 96.9(H) 81.3 - 96.4 fL [facility] MCH 31.4 27.1 - 33.3 pg [facility] MCHC 32.4 32.3 - 35.7 g/dL [facility] RDW CV 14.9 11.1 - 14.9 % [facility] RDW SD 52.4(H) 35.7 - 48.1 fL [facility] NRBC abs 0.02(H) 0.00 - 0.01 K/cumm [facility] Blood 12/13/2023 1:33 PM CDT 12/13/2023 1:49 PM CDT Parris Aura Brittany [employer] LAB BLOOD ORDERABLES Final Result [facility] [place] [address] * (ABNORMAL) Basic metabolic panel (12/13/2023 1:33 PM CDT) Sodium 132(L) 135 - 145 mmol/L Potassium, pl 5.0(H) 3.3 - 4.9 mmol/L [facility] Chloride 97 97 - 110 mmol/L [facility] CO2 26 22 - 32 mmol/L [facility] Anion gap 9 2 - 15 mmol/L [facility] BUN 31(H) 6 - 25 mg/dL [facility] Creatinine 0.63 0.60 - 1.10 mg/dL [facility] Glucose 207(H) 70 - 199 mg/dL [facility] Comment: Interpretive Data Fasting glucose >/= [...] 2022. Calcium 8.6 8.5 - 10.3 mg/dL [facility] Blood 12/13/2023 1:33 PM CDT 12/13/2023 1:49 PM CDT Parris Soto [employer] LAB BLOOD ORDERABLES Final Result [facility] Department [place] [address] * (ABNORMAL) POCT glucose (12/13/2023 12:14 PM CDT) Glucose, POC 212(H) 70 - 199 mg/dL Blood 12/13/2023 12:1 4 PM CDT 12/13/2023 12:14 PM CDT Kevin Anne MD LAB POCT ORDERABLES - DEVICE Final Result Performing Organization Address [facility] Co de Phone Number [facility] [place] [address] * Transfuse RBC (12/13/2023 9:49 AM CDT) Blood eKvin Anne MD BLOOD TRANSFUSION ORDE RABLES Final Result Performing Organization Address [facility] Co de Phone Number [facility] [place] [address] * POCT glucose (12/13/2023 8:25 AM CDT) [facility] Glucose, POC 175 70 - 199 mg/dL Blood 12/13/2023 8:25 AM CDT 12/13/2023 8:25 AM CDT Kevin Anne MD LAB POCT ORDERABLES - DEVICE Final Result Performing Organization Address [facility] de Phone Number [facility] [place] [address] * ECG 12 lead (12/13/2023 5:50 AM CDT) [facility] Ventricular Rate EKG/Min 119 BPM [facility] Atrial Rate 44 BPM [facility] QRS-Interval (MSEC) 88 ms [facility] QT-Interval (MSEC) 318 ms [facility] QTc 447 ms [facility] R [place] 29 degrees [facility] T [place] -29 degrees [facility] Diagnosis Atrial fibrillation with rapid ventricular response Cannot rule out Inferior infarct , age undetermined Abnormal ECG When compared with ECG of 12-DEC-2023 05:53, ST elevation now present in Inferior leads Confirmed by GREGORY CLINE M.D ([id number]) on 12/14/2023 12:31:24 PM [facility] [facility] 12/13/2023 5:50 AM CDT 12/14/2023 12:31 PM CDT Kevin Anne MD ECG ORDERABLES Final Result Performing Organization Address [facility] Co de Phone Number [facility] * (ABNORMAL) Potassium, whole blood (12/13/2023 5:50 AM CDT) Potassium, bld 5.0(H) 3.3 - 4.9 mmol/L Blood 12/13/2023 5:50 AM CDT 12/13/2023 5:56 AM CDT Alia Ibarra MD LAB BLOOD ORDERABLES Final Resul t Performing Organization Address [facility] de Phone Number [facility] Department [place] [address] * Type and screen (12/13/2023 4:58 AM CDT) Pathologist [facility] ABO Rh O Positive Gian, indirect Negative [facility] Blood 12/13/2023 4:58 AM CDT 12/13/2023 5:12 AM CDT Narrative [facility] - 12/13/2023 6:03 AM CDT Has the patient had Daratumumab or Isatuximab in the past 6 months?->Unknown Result [facility] Kevin Anne MD LAB BLOOD BANK TEST OR DERABLES Final Result Performing Organization Address [facility] de Phone Number [facility] Department [place] [address] * POCT glucose (12/13/2023 4:55 AM CDT) Glucose, POC 194 70 - 199 mg/dL Blood 12/13/2023 4:55 AM CDT 12/13/2023 4:55 AM CDT Kevin Anne MD LAB POCT ORDERABLES - DEVICE Final Result Performing Organization Address [facility] Co de Phone Number [facility] Department [place] [address] * Prepare RBC: 1 Units (12/13/2023 4:19 AM CDT) [facility] Product code [id number] Unit Number [id number] [facility] Product Blood Type OPOS [facility] Dispense Status PRESUMED TRANSFUSED [facility] Blood 12/13/2023 4:19 AM CDT 12/13/2023 4:21 AM CDT Narrative [facility] - 12/14/2023 11:27 AM CDT Are special requirements needed? (All products are leukoreduced and CMV- safe)- >No Date required:-[id number] LRRBC # of [id number] Reasons:-Hgb <7 g/dL} Kevin Anne MD BLOOD BANK PRODUCT ORD ERABLES Final Result Performing Organization Address [facility] Co de Phone Number [facility] Department [place] [address] * eGFR (12/13/2023 3:08 AM CDT) Pathologist [facility] eGFR 89 >=60 mL/min/1. 73 m2 Comment: [...] MD LAB BLOOD ORDERABLES Final Resul t [facility] Department [place] [address] * (ABNORMAL) CBC without differential (12/13/2023 3:08 AM CDT) WBC 7.2 3.8 - 9.9 K/cumm Hgb 6.2(C) 11.9 - 15.5 g/dL [facility] Comment:Consistent with prev ious results Hct 19.4(L) 35.6 - 45.5 % [facility] Plt 168 150 - 400 K/cumm [facility] MPV 10.6 9.1 - 12.3 fL [facility] RBC 2.00(L) 3.90 - 5.20 M/cumm [facility] MCV 97.0(H) 81.3 - 96.4 fL [facility] MCH 31.0 27.1 - 33.3 pg [facility] MCHC 32.0(L) 32.3 - 35.7 g/dL [facility] RDW CV 14.8 11.1 - 14.9 % [facility] RDW SD 51.5(H) 35.7 - 48.1 fL [facility] NRBC abs 0.00 0.00 - 0.01 K/cumm [facility] Blood 12/13/2023 3:08 AM CDT 12/13/2023 3:30 AM CDT Alia Ibarra MD LAB BLOOD ORDERABLES Final Resul t Performing Organization Address [facility] Co de Phone Number [facility] [place] [address] * (ABNORMAL) Phosphorus (12/13/2023 3:08 AM CDT) Phosphorus, pl 1.5(L) 2.3 - 4.5 mg/dL Blood 12/13/2023 3:08 AM CDT 12/13/2023 3:29 AM CDT us Alia Ibarra MD LAB BLOOD ORDERABLES Final Resul t Performing Organization Address [facility] de Phone Number [facility] [place] [address] * Magnesium (12/13/2023 3:08 AM CDT) Magnesium 1.8 1.4 - 2.5 mg/dL Blood 12/13/2023 3:08 AM CDT 12/13/2023 3:29 AM CDT us Alia Ibarra MD LAB BLOOD ORDERABLES Final Resul t Performing Organization Address [facility] de Phone Number [facility] [place] [address] * (ABNORMAL) Basic metabolic panel (12/13/2023 3:08 AM CDT) Sodium 136 135 - 145 mmol/L Potassium, pl 5.4(H) 3.3 - 4.9 mmol/L [facility] Chloride 102 97 - 110 mmol/L [facility] CO2 28 22 - 32 mmol/L [facility] Anion gap 6 2 - 15 mmol/L [facility] BUN 28(H) 6 - 25 mg/dL [facility] Creatinine 0.63 0.60 - 1.10 mg/dL [facility] Glucose 168 70 - 199 mg/dL [facility] Comment: Interpretive Data Fasting glucose >/= [...] 2022. Calcium 8.7 8.5 - 10.3 mg/dL [facility] Blood 12/13/2023 3:08 AM CDT 12/13/2023 3:29 AM CDT us Alia Ibarra MD LAB BLOOD ORDERABLES Final Resul t [facility] Department [place] [address] * eGFR (12/13/2023 2:11 AM CDT) eGFR [...] MD LAB BLOOD ORDERABLES F inal Result [facility] Department [place] [address] * CBC without differential (12/13/2023 2:11 AM CDT) WBC See Comment 3.8 - 9.9 Comment: Credited, collection error. Likely diluted specimen. Telephone report made to: Ren Chan RN on 12/13/2023 02:46:51 CDT by PRAKASH . Hgb See Comment 11.9 - 15.5 M[facility] Comment: Critical result called to and read back by REN CHAN RN on 12 13 2023 at 0242 to Yovanny Savage. Credited, collection error. Likely diluted specimen. Telephone report made to: Ren Chan RN on 12/13/2023 02:46:51 CDT by PRAKASH . Hct See Comment 35.6 - 45.5 [facility] Comment: Credited, collection error. Likely diluted specimen. Telephone report made to: Ren Chan RN on 12/13/2023 02:46:51 CDT by PRAKASH . Plt See Comment 150 - 400 [facility] Comment: Credited, collection error. Likely diluted specimen. Telephone report made to: Ren Chan RN on 12/13/2023 02:46:51 CDT by PRAKASH . MPV See Comment 9.1 - 12.3 [facility] Comment: Credited, collection error. Likely diluted specimen. Telephone report made to: Ren Chan RN on 12/13/2023 02:46:51 CDT by PRAKASH . RBC See Comment 3.90 - 5.20 [facility] Comment: Credited, collection error. Likely diluted specimen. Telephone report made to: Ren Chan RN on 12/13/2023 02:46:51 CDT by PRAKASH . MCV See Comment 81.3 - 96.4 [facility] Comment: Credited, collection error. Likely diluted specimen. Telephone report made to: Ren Chan RN on 12/13/2023 02:46:51 CDT by PRAKASH . MCH See Comment 27.1 - 33.3 [facility] Comment: Credited, collection error. Likely diluted specimen. Telephone report made to: Ren Chan RN on 12/13/2023 02:46:51 CDT by PRAKASH . MCHC See Comment 32.3 - 35.7 [facility] Comment: Credited, collection error. Likely diluted specimen. Telephone report made to: Ren Chan RN on 12/13/2023 02:46:51 CDT by PRAKASH . RDW CV See Comment 11.1 - 14.9 [facility] Comment: Credited, collection error. Likely diluted specimen. Telephone report made to: Ren Chan RN on 12/13/2023 02:46:51 CDT by PRAKASH . RDW SD See Comment 35.7 - 48.1 [facility] Comment: Credited, collection error. Likely diluted specimen. Telephone report made to: Ren Chan RN on 12/13/2023 02:46:51 CDT by PRAKASH . NRBC abs See Comment 0.00 - 0.01 K/cumm [facility] Comment: Credited, collection error. Likely diluted specimen. Telephone report made to: Ren Chan RN on 12/13/2023 02:46:51 CDT by PRAKASH . Blood 12/13/2023 2:11 AM CDT 12/13/2023 2:25 AM CDT Kevin Anne MD LAB BLOOD ORDERABLES E dited Result - Final Performing Organization Address [facility] Co de Phone Number [facility] [place] [address] * (ABNORMAL) Phosphorus (12/13/2023 2:11 AM CDT) [facility] Phosphorus, pl 1.6(L) 2.3 - 4.5 mg/dL Blood 12/13/2023 2:11 AM CDT 12/13/2023 2:25 AM CDT Result [facility] Kevin Anne MD LAB BLOOD ORDERABLES F inal Result Performing Organization Address [facility] Co de Phone Number [facility] Department [place] [address] * Magnesium (12/13/2023 2:11 AM CDT) [facility] Magnesium 2.0 1.4 - 2.5 mg/dL Blood 12/13/2023 2:11 AM CDT 12/13/2023 2:25 AM CDT Result [facility] Kevin Anne MD LAB BLOOD ORDERABLES F inal Result Performing Organization Address [facility] Co de Phone Number [facility] [place] [address] * (ABNORMAL) Basic metabolic panel (12/13/2023 2:11 AM CDT) [facility] Sodium 133(L) 135 - 145 mmol/L Potassium, pl 5.3(H) 3.3 - 4.9 mmol/L [facility] Chloride 102 97 - 110 mmol/L [facility] CO2 29 22 - 32 mmol/L [facility] Anion gap 2 2 - 15 mmol/L [facility] BUN 29(H) 6 - 25 mg/dL [facility] Creatinine 0.63 0.60 - 1.10 mg/dL [facility] Glucose 166 70 - 199 mg/dL [facility] Comment: Interpretive Data Fasting glucose >/= [...] 2022. Calcium 8.7 8.5 - 10.3 mg/dL [facility] Blood 12/13/2023 2:11 AM CDT 12/13/2023 2:25 AM CDT Kevin Anne MD LAB BLOOD ORDERABLES F inal Result [facility] Department [place] [address] * (ABNORMAL) Hemoglobin A1c (12/09/2023 10:24 PM CDT) Hgb A1C 6.5(H) 4.0 - 5.6 % Estimated Average Glucose 140 mg/dL [facility] Comment: The ADA recommends reporting an [...] CDT 12/09/2023 10:38 PM CDT us Emy Dorado Laura AIRPLANE PILOT HELPER LAB BLOOD ORDERABLES F inal Result [facility] Department [place] [address] * (ABNORMAL) Lipid panel (08/07/2023 2:35 PM [...] on 2017. Triglycerides 145 <=149 mg/dL [facility] Comment: Interpretive Data Ages < or = [...] revised on 2017. HDL 32(L) >=40 mg/dL [facility] Comment: Interpretive Data Ages < or [...] 2017. LDL, calculated 33 <=129 mg/dL [facility] Comment: Interpretive Data Ages < or [...] revised on 2017. Non-HDL Cholesterol 62 mg/dL [facility] Comment: Interpretive Data Ages < or [...] last revised on 2017. Chol/HDL ratio 3 [facility] Blood 08/07/2023 2:35 PM CDT 08/07/2023 2:51 PM CDT us Parris Celestin NP LAB BLOOD ORDERABLES Sri l Result Performing Organization Address [facility]/ZIP Co de Phone Number [facility] [place] [address] * Albumin Creatinine Ratio, Urine (02/23/2023 11:01 AM DELIVERY SUPERVISOR) Pathologist [facility] Creatinine, ur 94 20 - 275 mg/dL [...] diagnostic category. Urine 02/23/2023 11:0 1 AM DELIVERY SUPERVISOR 02/23/2023 11:01 AM DELIVERY SUPERVISOR us Cuba Larsen MD LAB URINE ORDERABLES Final Re sult [facility] [address] [id number] * DIABETES EYE EXAM (12/10/2022) us Historical Provider HEALTH MAINTENANCE Final Result from Last 3 Months or Most Recently Relevant to Health Maintenance Insurance [facility] Advance Directives For more information, please contact: [phone] Documents on File Type Date Recorded Patient Director Oncology Expl anation ADVANCE DIRECTIVE 12/11/2023 12:06 PM NUHA R OF SUPERVISOR CYTOLOGY-MEDICAL ADVANCE DIRECTIVE 10/27/2019 8:48 AM Power of Pollution Control Chemist-Medical ADVANCE DIRECTIVE 10/27/2019 8:47 AM Power of Pollution Control Chemist-Medical * LIMITED - No CPR (Latest Code [...] Relationship Healthcare Agent Relationshi p Communication Elio Culp [facility] Health Care Agent Care Teams Scallop Shucker Relationship Specialty Start Date End Date Cuba Larsen MD PCP - General Family Medicine 01/23/22 Chris Mendes MD Referring Physician Cardiology 12/23/21 Keli Orozco, socket puller Failure Coordinator Transplant 04/15/23 Tami Mcknight, socket puller Failure Coordinator Cardiology 09/14/23
--- OUTSIDE RECORDS SUMMARY | 2024-03-13 01:07 | XMS_ITS | Encounter Summary ---
Author Organization [facility] Healthcare Address [address] [place] [address] Care Team Providers Care Bag Liner Name Role Phone Chris Mendes MD Unavailable [phone] Cuba Larsen MD Primary Care Provider [phone] Keli Orozco RN Unavailable Unavailable Tami Mcknight RN Unavailable Unavailab le Reason for Referral * Consultation (Routine) - Closed Specialty Diagnoses / Procedures Referred By Indra muñoz Referred To Contact Gastroenterology Diagnoses Cuba Kathleen MD [address] [facility] [address] [address] Phone: tel: fax: Jose Miguel Kaur MD [address] [facility] [address] [facility] [address] [place] [address] Phone: tel: fax: Referral ID Status Reason Start Date Expiration Date V isits Requested Visits Authorized [id number] Closed Specialty Services Required 02/22/2024 03/23/2025 1 1 Question Answer Please select the performing region: External Order [171] To provider: CHRISTOPHER HOYT [[id number]] IGHT KNIFE MACHINE CUTTER Reason for Visit * Reason Onset Date Comments Referral Request 02/22/2024 Encounter Details Date Type Department Care Team (Late st Contact Info) Description 02/22/2024 Telephone [facility] Medical Group Family Medicine at [address] [place] [address] Cuba Larsen MD [facility] [address] [place] [address] Referral Request Social History Tobacco Use Types [...] on file Legal Sex Female 4:20 AM STRAIGHT KNIFE MACHINE CUTTER Gender Identity Not on file Sexual Orientation Not on file documented as of this encounter Miscellaneous Notes * Telephone Encounter - Aziza Mustafa - 02/23/2024 10:[address] Hoyt was showing out of network with [facility]. Spoke with office and patient was rescheduled to Dr Faustin. Insurance referral faxed to office and mailed to patient. IGHT KNIFE MACHINE CUTTER * Telephone Encounter - Leandra Winters RN - 02/22/2024 9:28 AM CST Spoke with Summer and it's FU to EGD done 12/31/2023 for melena. IGHT KNIFE MACHINE CUTTER * Telephone Encounter - Christy Jamesh - 02/22/2024 8:01 AM CST Referral Provider Name: Dr. Christopher Hoyt Specialty: Gastroenterology Address: [address] [place] [address], Zip: [place] [address] Diagnosis Code/Symptom/Reason Patient is being seen: Follow up appointment Date of Appointment: 02/23/2024 NPI#: [id number] Tax ID#: [id number] Is insurance in chart up to date? Yes, [employer] Additional Comments: None Does message need to be routed? Yes-Action Needed IGHT KNIFE MACHINE CUTTER documented in this encounter Plan of Treatment Scheduled Referrals Name Type Priority Associated Diagnoses Order Schedule Ambulatory referral to Gastroenterology Outpatient Referral Routine Melena Expected: 02/22/2024 (Approximate), Expires: 02/21/2025 documented as of this encounter Visit Diagnoses Diagnosis Melena- Primary Blood in stool documented in this encounter Care Teams Bag Liner Relationship Specialty Start Date End Date Cuba Larsen MD PCP - General Family Medicine 01/23/22 Chris Mendes MD Referring Physician Cardiology 12/23/21 Keli Orozco, cane cutter Failure Coordinator Transplant 04/15/23 Tami Mcknight, cane cutter Failure Coordinator Cardiology 09/14/23 documented as of this encounter
--- OUTSIDE RECORDS SUMMARY | 2024-03-13 01:07 | XMS_ITS | Encounter Summary ---
Author Organization [facility] Healthcare Address [address] [place] [address] Care Team Providers Care Warehouse Technician Name Role Phone Chris Mendes MD Unavailable [phone] Cuba Larsen MD Primary Care Provider [phone] Keli Orozco RN Unavailable Unavailable Tami Mcknight RN Unavailable Unavailab le Encounter Details Date Type Department Care Team (Late st Contact Info) Description 02/11/2024 Orders Only [facility] Health Information Management [address] [place] [address] Cuba Larsen MD [facility] [address] [address] Social History Tobacco Use Types [...] on file 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 Gender Identity Not on file Sexual Orientation Not on file documented as of this encounter Plan of Treatment Not on file documented as of this encounter Procedures Procedure Name Priority Date/Time Associated Diagnosis Comments SCAN - RADIOLOGY/IMAGING 02/11/2024 documented in this encounter Results * SCAN - RADIOLOGY/IMAGING (02/11/2024) Anatomical Region Laterality Modality Other us Cuba Larsen MD Edited Result - Final documented in this encounter Visit Diagnoses Not on filedocumented in this encounter Care Teams Warehouse Technician Relationship Specialty Start Date End Date Cuba Larsen MD PCP - General Family Medicine 01/23/22 Chris Mendes MD Referring Physician Cardiology 12/23/21 Keli Orozco, receiver Failure Coordinator Transplant 04/15/23 Tami Mcknight RN Heart Failure Coordinator Cardiology 09/14/23 documented as of this encounter
--- OUTSIDE RECORDS SUMMARY | 2024-03-13 01:07 | XMS_ITS | Encounter Summary ---
Author Organization [facility] Healthcare Address [address] [place] [address] Care Team Providers Care Occupational Health And Safety Officer Name Role Phone Chris Mendes MD Unavailable [phone] Cuba Larsen MD Primary Care Provider [phone] Keli Orozco RN Unavailable Unavailable Tami Mcknight RN Unavailable Unavailab le Encounter Details Date Type Department Care Team (Late st Contact Info) Description 02/18/2024 Orders Only [facility] Medical Group Cardiology [address] [place] [id number] Magnolia Rico NP [address] [place] [address] Social History Tobacco Use Types Packs/Day Years [...] on file Legal Sex Female 4:20 AM CHIEF ULTRASOUND TECHNOLOGIST Gender Identity Not on file Sexual Orientation Not on file documented as of this encounter Plan of Treatment Not on file documented as of this encounter Procedures Procedure Name Priority Date/Time Associated Diagnosis Comments CARDIOLOGY DOCUMENT SCAN Routine 02/17/2024 2:22 PM CHIEF ULTRASOUND TECHNOLOGIST CARDIOLOGY DOCUMENT SCAN Routine 02/15/2024 2:18 PM CHIEF ULTRASOUND TECHNOLOGIST documented in this encounter Results * Cardiology Document Scan (02/17/2024 2:22 PM CHIEF ULTRASOUND TECHNOLOGIST) Anatomical Region Laterality Modality Other us Abhijit Devlin MD CV CARDIAC SERVICES PROCE DURES Final Result * Cardiology Document Scan (02/15/2024 2:18 PM CHIEF ULTRASOUND TECHNOLOGIST) Anatomical Region Laterality Modality Other us Magnolia Rico NP CV CARDIAC SERVICES PROCEDUR ES Final Result documented in this encounter Visit Diagnoses Not on filedocumented in this encounter Care Teams Occupational Health And Safety Officer Relationship Specialty Start Date End Date Cuba Larsen MD PCP - General Family Medicine 01/23/22 Chris Mendes MD Referring Physician Cardiology 12/23/21 Keli Orozco, waste oil pumper Failure Coordinator Transplant 04/15/23 Tami Mcknight, waste oil pumper Failure Coordinator Cardiology 09/14/23 documented as of this encounter
--- OUTSIDE RECORDS SUMMARY | 2024-03-13 01:07 | XMS_ITS | Encounter Summary ---
Author Organization [facility] Healthcare Address [address] [place] [address] Care Team Providers Care Distresser Name Role Phone Chris Mendes MD Unavailable [phone] Cuba Larsen MD Primary Care Provider [phone] Keli Orozco RN Unavailable Unavailable Tami Mcknight RN Unavailable Unavailab le Reason for Visit * Reason Onset Date Comments 1st no show letter sent 01/05/24 01/05/2024 Encounter Details Date Type Department Care Team (Late Contact Info) Description 01/05/2024 Telephone [facility] Medical Group Family Medicine at [address] [place] [address] Cuba Larsen MD [address] [place] [address] 1st no show letter sent 01/05/24 Social History Tobacco Use Types Packs/Day Years [...] on file 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 She is currently admitted to a shelter for physical therapy. Does message need to be routed? Yes-FYI Only * Telephone Encounter - Nakita Mustafa - 01/05/2024 12:49 PM CDT 1st no show letter sent 01/05/24 documented in this encounter Plan of Treatment Not on file documented as of this encounter Visit Diagnoses Not on filedocumented in this encounter Care Teams Distresser Relationship Specialty Start Date End Date Cuba Larsen MD PCP - General Family Medicine 01/23/22 Chris Mendes MD Referring Physician Cardiology 12/23/21 Keli Orozco, public health engineer Failure Coordinator Transplant 04/15/23 Tami Mcknight RN Heart Failure Coordinator Cardiology 09/14/23 documented as of this encounter
--- OUTSIDE RECORDS SUMMARY | 2024-03-13 01:07 | XMS_ITS | Encounter Summary ---
Author Organization [facility] Healthcare Address [address] [place] [address] Care Team Providers Care Inventory Associate Name Role Phone Chris Sanchez MD Unavailable [phone] Cuba Larsen MD Primary Care Provider [phone] Keli Orozco RN Unavailable Unavailable Tami Mcknight RN Unavailable Unavailab le Reason for Referral * Consultation (Routine) - Authorized Specialty Diagnoses / Procedures Referred By Indra t Referred To Contact Cardiology Diagnoses Mitral valve prolapse Cuba Larsen MD [address] [address] Phone: tel: fax: Chris Sanchez MD [address] [address] Phone: tel: fax: Referral ID Status Reason Start Date Expiration Date Visits Requested Visits Authorized [id number] Authorized Specialty Services Required 01/23/2025 12 12 Question Answer Please select the performing region: [facility] (All Locations) [167] Is this referral for the Valve Clinic? No To provider: CHRIS SANCHEZ [[id number]] # of visits: 1 EYOR TENDER Reason for Visit * Reason Onset Date Comments Referral Request 01/19/2024 Encounter Details Date Type Department Care Team (Late st Contact Info) Description 01/19/2024 Telephone [facility] Family Medicine at [address] [place] [address] Cuba Larsen MD [facility] [address] [address] Referral Request Social History Tobacco Use Types [...] on file Legal Sex Female 4:20 AM CONVEYOR TENDER Gender Identity Not on file Sexual Orientation Not on file documented as of this encounter Miscellaneous Notes * Telephone Encounter - Carly Paredes MA - 01/19/2024 2:03 PM CST Referral in [facility] EYOR TENDER * Telephone Encounter - Megan Browning - 01/19/2024 1:56 PM CST Referral Provider Name: Dr. Chris Sanchez Specialty: Cardiology Address: [address] [place] [address], Zip: [address] Diagnosis Code/Symptom/Reason Patient is being seen: I34.1 Date of Appointment: 02/01/24 NPI#: [id number] Tax ID#: [id number] Is insurance in chart up to date? Yes Additional Comments: - Does message need to be routed? Yes-Action Needed EYOR TENDER documented in this encounter Plan of Treatment Scheduled Referrals Name Type Priority Associated Diagnoses Order Schedule Ambulatory referral to Cardiology Outpatient Referral Routine Mitral valve prolapse 1 Occurrences starting 01/19/2024 until 07/18/2024 documented as of this encounter Visit Diagnoses Diagnosis Mitral valve prolapse- Primary Mitral valve disorders documented in this encounter Care Teams Inventory Associate Relationship Specialty Start Date End Date Cuba Larsen MD PCP - General Family Medicine 01/23/22 Chris Sanchez MD Referring Physician Cardiology 12/23/21 Keli Orozco, wharf helper Failure Coordinator Transplant 04/15/23 Tami Mcknight, wharf helper Failure Coordinator Cardiology 09/14/23 documented as of this encounter
--- OUTSIDE RECORDS SUMMARY | 2024-03-13 01:08 | XMS_ITS | Encounter Summary ---
Author Organization [facility] Address [address] [place] [address] Phone Care Team Providers Care Qa Test Lead Name Role Phone Chris Mendes MD Unavailable [phone] Cuba Laresn MD Primary Care Provider [phone] Keli Orozoc RN Unavailable Unavailable Tami Mcknight RN Unavailable Unavailab le Reason for Visit * Consultation (Routine) - Closed Specialty Diagnoses / Procedures Referred By Contac t Referred To Contact Cardiology Diagnoses Mitral valve prolapse Cuba Larsen MD [address] [address] Phone: tel: fax: Chris Mendes MD [address] [address] Phone: tel: fax: Referral ID Status Reason Start Date Expiration Date V isits Requested Visits Authorized [id number] Closed Specialty Services Required 01/23/2023 01/25/2024 12 12 Encounter Details Date Type Department Care Team (Late st Contact Info) Description 11/02/2023 10:30 AM CDT Office Visit [facility] Cardiology [address] [facility] Medical Office Building [address] [place] [address] Racquel Abebe NP [address] [place] [address] CVA (Primary Dx); Paroxysmal atrial fibrillation; Nonischemic cardiomyopathy; Coronary artery disease; Aortic stenosis Social History Tobacco Use Types Packs/Day Years Used Date Smoking Tobacco: Never Smokeless Tobacco: Never Tobacco Cessation:Counseling Given: Not Answered Alcohol Use Standard Drinks/Week Comments Yes 0 (1 standard drink = 0.6 oz pur e alcohol) AUDIT-C Answer Date Recorded Q1: How often do you have a drink containing alc ohol? Monthly or less 09/02/2023 Q2: How many drinks containi ng alcohol do you have on a typical day when you are drinking? 1 or 2 09/02/2023 Frequency of Binge Drinking Not on file 08/14 PHQ-2 Answer Date Recorded PHQ-2 Total Score (If total score is 3 or more points, staff should administer the PHQ-9) 0 11/03/2023 Personal Safety Answer Date Recorded Have you ever been in or are you currently in a harmful physical or emotional relationship or is someone making you feel afraid or unsafe? Denies 08/07/2023 Comments No Sex and Gender Information Value Date Recorded Sex Assigned at Not on file Legal Sex Female 4:20 AM ICHTHYOLOGIST Gender Identity Not on file Sexual Orientation Not on file documented as of this encounter Last Filed Vital Signs Vital Sign Reading Time Taken Comments Blood Pressure 115/78 11/02/2023 10:22 AM CDT Pulse 75 11/02/2023 10:22 AM CDT Temperature - - Respiratory Rate - - Oxygen Saturation 96% 11/02/2023 10:22 AM CDT Inhaled Oxygen Concentration - - Weight 85.7 kg (189 lb) 11/02/2023 10:22 AM CDT Height 157.5 cm (5' 2 ) 11/02/2023 10:22 AM CDT Body Mass Index 34.57 11/02/2023 10:22 AM CDT documented in this encounter Patient Instructions * Patient Instructions* Racquel Abebe NP - 11/02/2023 10:30 AM CDT In the future I recommend Lovenox injections to bridge you any time you need to stop Eliquis. This will protect you from stroke without increasing your bleeding risk for surgeries/procedures in thedays leading up to and following the procedure. Please notify us ahead of time if you are asked to hold Eliquis. I will talk to Dr. Mendes about option of left atrial appendage occlusion such as Watchman device.This will close off the left atrial appendage which is the are of the heart that most clots from Afib are formed. Continue carvedilol 50mg twice daily and losartan 100mg daily. Increase spironolactone to 50mg daily. Check BMP blood test 1-2 weeks after increasing this dose. Order is in at [facility]. Call with blood pressure update in 1-2 weeks. documented in this encounter Ordered Prescriptions Prescription Sig Dispense Quantity Refills Last Filled Start Date End Date spironolactone (ALDACTONE) 50 mg tablet Take 1 tablet (50 mg total) by mouth daily 90 tablet 3 11/02/2023 documented in this encounter Progress Notes * Racquel Abebe NP - 11/02/2023 10:30 AM CDT Cardiology Return Office Visit Primary care Physician Cuba Larsen MD [address] [place] [address] Patient Name: Prema Pearce Date of : 1940 Date of Visit: 11/02/2023 PRINCIPAL AND SECONDARY DIAGNOSES: Nonischemic cardiomyopathy, heart failure with improved EF Mild nonobstructive coronary artery disease Mild aortic stenosis Paroxysmal atrial fibrillation Pulmonary embolism 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 female who presents today at the [facility] in [place] for follow up on her above cardiovascular problems. Her parasitologist is Dr. Mendes . Son present who provides additional history. She was hospitalized in July for another stroke after missing 2-3 doses of Eliquis the week prior. Presented with left sided weakness and right forced gaze, found to have an occlusion of the R M1, treated with mechanical thrombectomy. She has had no residual neurologic defects, but has been extremely anxious and depressed since that time. She notes this is her second embolic stroke with short Termholding of Eliquis. She is terrified of having another stroke, and particularly scared to hold Eliquis in the future for other procedures or surgeries. She now has alarms set to remind her to take the Eliquis and family members have been helping to remind as well, but she still has anxiety about this. She denies any chest pain, shortness of breath, lower extremity edema, palpitations, lightheadedness, dizziness, or stroke/TIA symptoms. She monitors blood pressures at home and these have been elevated averaging 130s-150s/70s-90s. Carvedilol increased to [address] Mendes 1-2 weeks ago with no significant change. CURRENT MEDICATIONS: Current Outpatient Medications: ALPRAZolam (XANAX) 0.5 mg tablet apixaban (Eliquis) 5 mg tablet blood glucose diagnostic (glucose blood) strip blood-glucose meter mis CALCIUM CARBONATE ORAL carvediloL (COREG) 25 mg tablet cholecalciferol (VITAMIN D-3) 2000 unit tablet FLUoxetine (PROzac) 20 mg capsule furosemide (LASIX) 40 mg tablet glipiZIDE (GLUCOTROL) 10 mg tablet lancets misc levothyroxine (SYNTHROID) 50 mcg tablet losartan (COZAAR) 100 mg tablet melatonin 5 mg tablet metFORMIN (GLUCOPHAGE) 500 mg tablet rosuvastatin (CRESTOR) 20 mg tablet spironolactone (ALDACTONE) 50 mg tablet PHYSICAL EXAMINATION: Vitals: 11/02/23 1022 BP: 115/78 BP Location: Left arm Patient Position: Sitting Pulse: 75 SpO2: 96% Weight: 85.7 kg (189 lb) Height: 157.5 cm (5' 2 ) GENERAL: Alert and oriented, well-nourished, in no acute distress. HEENT: Mucous membranes are moist. Sclerae white. No thyromegaly or lymphadenopathy. LUNGS: Normal effort and respiratory rate. Lungs clear to auscultation bilaterally. HEART: Normal rate, regular rhythm. No murmurs, rubs, or gallops. ABDOMEN: Soft, non-tender, and non-distended. No hepatosplenomegaly. MUSCULOSKELETAL: 5+ strength in upper and lower extremities, bilaterally symmetric. NEUROLOGIC/PSYCH: Alert and oriented x4. Calm and appropriate affect. Grossly normal bilateral motor function and sensation. VASCULAR: Extremities warm and well-perfused. All pulses intact. No edema. No carotid bruit. No JVD. SKIN: No cyanosis, pallor, clubbing, or rashes. LABORATORY/DIAGNOSTICS: TTE 07/2023 Rhythm is in AFib. LV cavity [...] cava. Normal aorta. No significant changes noted. Labs 07/2023: Cr 0.83, K 4.4 TC 94, HDL 32, LDL 33, Trig 145 A1c 6.1 IMPRESSION AND PLAN: 1. CVA 2. Paroxysmal atrial fibrillation She unfortunately has now had two embolic CVAs in the setting of brief interruption of Eliquis, on the first occasion held for a surgery and more recently she had missed a couple doses. Recommend Lovenox bridge for Eliquis interruption in the future, and I also wonder if she would benefit from left atrial appendage closure procedure such as Watchman. We will discuss with Dr. Mendes and consider referral to discuss. 3. Nonischemic cardiomyopathy LVEF normal on recent TTE. She is euvolemic and NYHA class I. Continue medical therapy with losartan, carvedilol, and spironolactone. Takes lasix infrequently PRN. 4. Coronary artery disease Stable, denies anginal symptoms. 5. Aortic stenosis Moderate on most recent TTE. Continue surveillance. 6. Hypertension Blood pressure is above goal, and has not changed significantly was increased to 50 mg BID on the carvedilol. She wishes to avoid additional medications so suggested increasing spironolactone to 50 mg daily with BMP in 1-2 weeks. Continue losartan 100mg. She will call to report blood pressures again in 1-2 weeks. We will plan to see her back in 3 months, however we would be happy to see her sooner if needed. [facility], [facility] 11/02/[facility]23 CC: Cuba Larsen MD [address] [facility] [address] [place] [place] [address] documented in this encounter Plan of Treatment Not on file documented as of this encounter Procedures Procedure Name Priority Date/Time Associated Diagnosis Comments BASIC METABOLIC PANEL Routine 11/02/2023 1:28 PM CDT Nonischemic cardiomyopathy documented in this encounter Results * (ABNORMAL) Basic metabolic panel (11/02/2023 1:28 PM CDT) Pathologist [facility] Glucose 128(H) 65 - 99 mg/dL [facility] Comment: ? Fasting reference interval For someone without known diabetes, a glucose value >125 mg/dL indicates that they may have diabetes and this should be confirmed with a follow-up test. BUN 19 7 - 25 mg/dL [facility] Creatinine 0.76 0.60 - 0.95 mg/dL [facility] eGFR 78 > OR = 60 mL/min/1.7 3m2 [facility] BUN/creat ratio SEE NOTE: 6 22 (calc) [facility] Comment: ?? Not Reported: BUN and Creatinine are within ?? reference range. ? Sodium 138 135 - 146 mmol/L [facility] Potassium, pl 4.6 3.5 - 5.3 mmol/L [facility] Chloride 103 98 - 110 mmol/L [facility] CO2 27 20 - 32 mmol/L [facility] Calcium 10.0 8.6 - 10.4 mg/dL [facility] Blood 11/02/2023 1:28 PM CDT 11/02/2023 1:29 PM CDT us Racquel Abebe ACTUARIAL MANAGER LAB BLOOD ORDERABLES Final R esult [facility] [id number] [place] [phone] documented in this encounter Visit Diagnoses Diagnosis CVA- Primary Paroxysmal atrial fibrillation Atrial fibrillation Nonischemic cardiomyopathy Other primary cardiomyopathies Coronary artery disease Aortic stenosis documented in this encounter Discontinued Medications Medication Sig Discontinue Reason Start Date End Da te spironolactone (ALDACTONE) 25 mg tablet TAKE 1 TABLET (25 MG TOTAL) BY MOUTH DAILY. Reorder 03/19/2023 11/02/2023 documented as of this encounter Care Teams Qa Test Lead Relationship Specialty Start Date End Date Cuba Larsen MD PCP - General Family Medicine 01/23/22 Chris Mendes MD Referring Physician Cardiology 12/23/21 Keli Orozco, drain cleaner plumber Failure Coordinator Transplant 04/15/23 Tami Mcknight drain cleaner plumber Failure Coordinator Cardiology 09/14/23 documented as of this encounter
--- OUTSIDE RECORDS SUMMARY | 2024-03-13 01:08 | XMS_ITS | Encounter Summary ---
Author Organization [facility] Address [address] [place] [address] Phone Care Team Providers Care Calculus Professor Name Role Phone Chris Mendes MD Unavailable [phone] Cuba Larsen MD Primary Care Provider [phone] Keli Orozco RN Unavailable Unavailable Tami Mcknight RN Unavailable Unavailab le Encounter Details Date Type Department Care Team (Late st Contact Info) Description 12/10/2023 Telephone [facility] Cardiology [address] [facility] Advanced Medicine 8th [place] [address] [place] [address] Geovanna Franklin Social History Tobacco Use Types Packs/Day Years [...] on file 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 no TYPE OF CONSULT: general CALLER'S NAME: Karuna CALLER'S PAGER: [phone] PATIENT'S NAME: Prema Pearce : 1940 CAMPUS: [facility] PATIENT'S LOCATION: [facility] REASON FOR CONSULT: post op day one history of afib unresponsive hypotension to fluid and blood also CHF ATTENDING PHYSICIAN: Dr. Solis documented in this encounter Plan of Treatment Not on file documented as of this encounter Visit Diagnoses Not on filedocumented in this encounter Care Teams Calculus Professor Relationship Specialty Start Date End Date Cuba Larsen MD PCP - General Family Medicine 01/23/22 Chris Mendes MD Referring Physician Cardiology 12/23/21 Keli Orozco, community coordinator for high school Failure Coordinator Transplant 04/15/23 Tami Mcknight RN Heart Failure Coordinator Cardiology 09/14/23 documented as of this encounter
--- OUTSIDE RECORDS SUMMARY | 2024-03-13 01:08 | XMS_ITS | Encounter Summary ---
Author Organization [facility] Address [address] [place] [address] Phone Care Team Providers Care Butt Trimmer Name Role Phone Chris Mendes MD Unavailable [phone] Cuba Larsen MD Primary Care Provider [phone] Keli Orozco RN Unavailable Unavailable Tami Mcknight RN Unavailable Unavailab le Reason for Visit * Reason Onset Date Comments lab reminder, BP update 11/17/2023 Encounter Details Date Type Department Care Team (Late st Contact Info) Description 11/17/2023 Telephone [facility] Cardiology [address] 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 Encouraged return call to office with any questions or concerns. * Telephone Encounter - Racquel Abebe NP - 11/30/2023 1:31 PM CDT Labs and blood pressures look good * Telephone Encounter - Britney Du RN - 11/27/2023 12:18 PM CDT Spoke with pt who called to give BP readings after increasing robert to 50mg last month. Current BP meds: Spironolactone 50mg once daily Coreg 50mg twice daily Losartan 100mg once daily I reminded her of BMP to be done- she will go to [facility] today. I told her we will call back next week with lab results and any recs from Racquel AMATO re: BP readings. Pt appreciative. Avg BP Reading 125/81 9/1 AM 123/83 68 PM 122/79 72 9/2 AM 121/73 74 9/3 AM 134/80 68 9/6 AM 124/83 71 9/7 AM 145/88 73 9/10 afternoon 100/60 80 PM 134/76 70 9/11 AM 127/83 9/12 AM 134/93 71 PM 117/92 78 13 AM 117/82 77 * Telephone Encounter - Cierra Sandy RN - 11/17/2023 12:58 PM CDT ----- Message from Nurse Cierra Shields sent at 11/02/2023 11:58 AM CDT ----- Racquel 11/01 ??Increase spironolactone to 50mg daily. ??Check BMP blood test 1-2 weeks after increasing this dose. Order is in at [facility]. ??Call with blood pressure update in 1-2 weeks. documented in this encounter Plan of Treatment Not on file documented as of this encounter Visit Diagnoses Not on filedocumented in this encounter Care Teams Butt Trimmer Relationship Specialty Start Date End Date Cuba Larsen MD PCP - General Family Medicine 01/23/22 Chris Mendes MD Referring Physician Cardiology 12/23/21 Keli Orozco, foundry melt supervisor Failure Coordinator Transplant 04/15/23 Tami Mcknight RN Heart Failure Coordinator Cardiology 09/14/23 documented as of this encounter
--- OUTSIDE RECORDS SUMMARY | 2024-03-13 01:08 | XMS_ITS | Encounter Summary ---
Author Organization [facility] Healthcare Address [address] [place] [address] Care Team Providers Care Child Center Assistant Name Role Phone Chris Mendes MD Unavailable [phone] Cuba Larsen MD Primary Care Provider [phone] Keli Orozco RN Unavailable Unavailable Tami Mcknight RN Unavailable Unavailab le Encounter Details Date Type Department Care Team (Late st Contact Info) Description 12/01/2023 Telephone [facility] Transplant Heart [address] [address] [phone] [place] [address] Robyn Walker Social History Tobacco Use Types Packs/Day Years [...] on file 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 Patient says she does not have access to a computer and does not know how to set Mychart up on her phone. documented in this encounter Plan of Treatment Not on file documented as of this encounter Visit Diagnoses Not on filedocumented in this encounter Care Teams Child Center Assistant Relationship Specialty Start Date End Date Cuba Larsen MD PCP - General Family Medicine 01/23/22 Chris Mendes MD Referring Physician Cardiology 12/23/21 Keli Orozco, windows application packager Failure Coordinator Transplant 04/15/23 Tami Mcknight windows application packager Failure Coordinator Cardiology 09/14/23 documented as of this encounter
--- OUTSIDE RECORDS SUMMARY | 2024-03-13 01:08 | XMS_ITS | Encounter Summary ---
Author Organization [facility] Healthcare Address [address] [place] [address] Care Team Providers Care Drug Safety Coordinator Name Role Phone Chris Mendes MD Unavailable [phone] Cuba Larsen MD Primary Care Provider [phone] Keli Orozco RN Unavailable Unavailable Tami Mcknight [...] Expiration Date Visits Re quested Visits Authorized [id number] 1 1 Encounter Details Date Type Department Care Team (Late st Contact Info) Description 12/09/2023 1:50 PM CDT - 12/09/2023 4:15 PM CDT Surgery [facility] Operating Room [address] [place] [address] Homer Villalobos MD [address] [facility] [address] [place] [address] OPEN REDUCTION INTERNAL FIXATION LEFT INTERTROCHANTERIC FEMUR FRACTURE Surgery Details Date/Time Status Location OR Service Patient Class Case Class Case Type Trauma Case? 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 Gender Identity Not on file Sexual Orientation Not on file documented as of this encounter Last Filed Vital Signs Vital Sign Reading Time Taken Comments Blood Pressure 122/77 12/09/2023 2:50 PM CDT Pulse 73 12/09/2023 2:50 PM CDT Temperature 36.6 ??C (97.9 ??F) 12/09/2023 1 1:37 AM CDT Respiratory Rate 17 12/09/2023 2:50 PM CDT Oxygen Saturation 98% 12/09/2023 2:50 PM CDT Inhaled Oxygen Concentration - - Weight 84.8 kg (186 lb 15.2 oz) 024 10:55 PM CDT Height 157.5 cm (5' 2.01 ) 12/08/2023 1 0:55 PM CDT Body Mass Index 34.18 12/08/2023 10:55 PM CDT documented in this encounter Discharge Summaries * Danette Causey NP - 12/16/2023 9:56 AM CDT Images from the original note were not included. [facility] Inpatient Discharge Summary This [...] scheduled Check BMP in 1 week at SNF Followup with your primary care doctor for ongoing management of your chronic medical issues - [facility] has a primary care clinic that may be able to help if you don't have a primary care doctor - call [phone] to see if they can establish care. Hospital Course: Hyponatremia Assessment & Plan 12/14 Na 128, started PO tablets 12/15 Na 129 - Recheck BMP at SNF in 1 week Acute blood loss anemia [...] in admissions tab [facility] Discharge planning issues Assessment & Plan 12/08 [...] Hgb stable at 7.7 (7.7), DC to [facility] Treatment Plan: done 12/15 Closed nondisplaced [...] Type 2 diabetes mellitus without complications (CMS/HCC) ([facility]) Assessment & Plan Continue DM diet with SSI Holding home glipizide and metformin A1C 6.5 Acquired hypothyroidism Assessment & Plan Continue home levothyroxine Paroxysmal atrial fibrillation (CMS/HCC) ([facility]) Assessment & Plan Holding home eliquis and Carvedilol 12/10 A fib controlled HR 100s, restarting Coreg 12.5 mg PO BID (home dose 50 mg PO BID) CTM 12/11 HR 90s a fib rate controlled, continue Coreg 25 mg PO BID 12/13 remains rate controlled 90s, continue Coreg 25 mg PO BID Follow up scheduled: [facility] 01/31 at 1:20 Operative Procedures Performed: OPEN REDUCTION INTERNAL FIXATION LEFT INTERTROCHANTERIC FEMUR FRACTURE (Left: Lower Extremity) Left Heart Catheterization With Coronary Angiography And With Or Without Left Ventriculogram 00056 Discharge Physical Exam: Discharge Condition: fair Pulse: [...] oral, 2 times daily Commonly known as: Eliquis blood-glucose meter misc Use daily or as [...] has been made for you to the [facility] assess your risk of bone disease and fracture. They will contact you to schedule an appointment;if you prefer to call them to schedule please call [phone]. For Follow Up Call [facility] at [phone] Follow up Future Appointments Date Time Provider Department Center 01/05/2024 11:45 AM Cuba Larsen MD [facility] 210 01/18/2024 2:15 PM Homer Villalobos MD [facility] CAM 6A OS 01/26/2024 9:30 AM Gilda Hollingsworth DNP [facility] 40 NL 02/01/2024 1:20 PM Chris Mendes MD [facility] CAM8B Cardiology 03/07/2024 2:15 PM Cuba Larsen MD FM FM 210 PC 04/15/2024 1:00 PM Araceli Salcedo MD STR CAM 6C NL All care plans discussed [...] Mitchel Obey, MD Department of Orthopaedic Surgery ([facility]) MOST COMMONLY ASKED QUESTIONS & ANSWERS FOR [...] Applications are available for download from the [place] and [place] DMV websites or 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 Also, our medical [...] Laws vary state by state; but in [place] and [place] there are no laws prohibiting driving after orthopedic surgery. If you are involved in a car accident, law enforcement will determine your ability to drive on a [id number] basis. Please check your own state laws if driving outside of [place] or [place]. Some insurance companies may have policies restricting [...] refills between visits, call the staff at [phone] between 8:00 am and 4:00 pm, Thursday [...] please give our office a call at [phone]. Dr. Pearce, Dr. Villalobos, Dr. Vora and Dr. Guanakito Lopez have a team of Medical Assistants and Nurses that can be reached at [phone]. They can help answer questions, address concerns, [...] complication, without long-term current use of insulin ([facility]) ([facility]) One strip daily to check glucose 100 each 1 03/19/2023 5 blood-glucose meter miscIndications: Type 2 diabetes mellitus without complication, without long-term current use of insulin ([facility]) ([facility]) Use daily or as directed [...] complication, without long-term current use of insulin ([facility]) ([facility]) 1 each by other route [...] daily as needed for constipation 12/16/2023 5 sodium chloride 1 gram tablet Take 1 [...] times a day with meals 12/16/2023 5 sodium chloride 1 gram tablet Take 1 [...] Departure Means Destination Comment s Discharge to [facility] TR documented in this encounter Progress Notes * Molly Gerber, ARMANI - 12/16/2023 11:53 AM CDT 12/16/23 1149 Discharge Summary Discharge Disposition group home facility (short term care) Specify Facility [facility] Contact Number [phone]; fax: [phone] Facility Attending Name Yves Bailey Discharge Records Transfer Form Completed Recommended Discharge Level of Care group home facility (short term care) Actual Discharge Level of Care group home facility (short term care) Does Actual Level of Care Match Care Team Recommendation? Yes Post Acute Care Plan Home Care Services N/A OP Services N/A DME N/A Post Acute Care Facility Yes Referral Status Accepted Accepted Post Acute Care Location and Contact [facility] [phone]- Aydee is contact Accepted Post Acute Care Discharge Additional Assistance Does the patient need discharge transport arranged? Yes Type of Transportation Ambulance/EMS Has discharge transport been arranged? Yes Details of Transportation [employer] [phone] trip # [id number] D/C Transport Anticipated Date 12/16/23 D/C Transport [...] is TBD. Transportation will be provided by [employer] ([phone]) trip # [id number]. Patient and family are agreeable with the plan. If any further discharge needs arise, please contact the covering field case manager. * Geovanna Villalta, OT - 12/15/2023 12:36 PM CDT Occupational [...] not assigned to this patient, please call [phone]. 12/15/23 5442 General Session Type Treatment OT Received On 12/15/23 Safe Environment Arm band checked;Patient found sitting [...] - Patient will perform toilet transfer to/[place] [facility] [place] Cyrus 12/11/23 12/18/23 -- Problem: OT Misc Start Date: 12/11/23 Goal Start Date Expected End Date End Date OT LTG - Pt will complete standing ADLs and functional transfers with SPV. 12/11/23 01/01/24 -- * Parris Soto NP - 12/15/2023 11:19 AM CDT Images from the original note were not included. [facility] OU Daily Progress Note [...] oral, Daily, SinkEmy NP, 20 mg at 12/15/23 0920 glucagon [...] Noel Islas MD, 17 g at 12/15/23 0920 rosuvastatin (CRESTOR) tablet 20 mg, 20 mg, [...] Motion sickness NSTEMI (non-ST elevated myocardial infarction) ([facility]/HCC) ([facility]) Obesity AYAD on CPAP Patellar [...] extremities non-edematous Labs/Imaging: Recent Labs Lab Units 12/14/23 21512/14/23 0320 12/13/23 2100 WBC K/cumm 7.3 7.5 [...] and updated in admissions tab Home pharmacy [facility] Discharge planning issues Assessment & Plan 12/08 [...] PO Type 2 diabetes mellitus without complications ([facility]/HCC) ([facility]) Assessment & Plan Continue DM diet with SSI Holding home glipizide and metformin A1C 6.5 Acquired hypothyroidism Assessment & Plan Continue home levothyroxine Paroxysmal atrial fibrillation ([facility]) ([facility]) Assessment & Plan Holding home eliquis and Carvedilol 12/10 A fib controlled HR 100s, restarting Coreg 12.5 mg PO BID (home dose 50 mg PO BID) CTM 12/11 HR 90s a fib rate controlled, continue Coreg 25 mg PO BID 12/13 remains rate controlled 90s, continue Coreg 25 mg PO BID Follow up scheduled: [facility] 01/31 at 1:20 Lines/Drains/Tubes: PIV DVT Prophylaxis: Lovenox Diet: Adult Diet Restricted; Consistent Carbohydrate Activity: WBAT GI Prophylaxis: none Code Status: LIMITED - No CPR Total time spent included the following activities caring for this patient: Patient chart review, Reviewing/obtaining history, Examination and evaluation, Counseling/educating patient/family/caregiver, Ordering medications/tests/procedures, Referring & communicating with other health rn primary care, Documenting clinical information in the health record, [...] treatment team and contact the PT or ASSISTANT CENTER MANAGER currently assigned to this patient. If a physical therapy clinician is not assigned to this patient, please call [phone]. 12/15/23 1008 PT Last Visit Session Type [...] and least amount of needed. * Ehsan Mallory RD - 12/14/2023 1:19 PM CDT NUTRITION [...] < > 0.63 0.63 < > 0.63 VLW-POT-SUIANAO mL/min/1.73 m2 89 < > 89 89 [...] 1151 12/14/23 0816 12/14/23 0312 12/13/23 2329 09/209912/13/23201512/13/23 1615 GLUCOSE mg/dL -- -- -- -- [...] of Weight Used for Estimated Protein : [place] Dietary Orders (From admission, onward) Start Ordered 12/14/23 1316 Adult Diet Restricted; Consistent Carbohydrate Diet effective now Comments: Skim milk with meals Question Answer Comment ([facility]) Diet type Restricted Diabetic: Consistent Carbohydrate 12/14/23 1319 12/10/23 1700 Oral Nutrition Supplements ([facility]) Select Supplement: Ensure Plus - Chocolate All Meals Question: ([facility]) Select Supplement: Answer: Ensure Plus - Chocolate [...] intake, Stool patterns Ehsan Mallory RD LD [phone]. Weekends [phone] * Geovanna Villalta, OT - 12/14/2023 9:18 AM CDT Occupational [...] not assigned to this patient, please call [phone]. 12/14/23 0918 General Session Type Treatment OT [...] mobility training;Functional transfer training;Therapeutic activity;Strengthening;Therapeutic exercise;Transfer traini alberto Progress during current admission Progressing toward goals OT - Next Appointment 12/15/23 OT Evaluation Complete Yes Time Calculation Start Time 917 Stop Time 953 Time Calculation (min) 36 min Multi-Disciplinary Problems [...] - Patient will perform toilet transfer to/from [facility] [place] Cyrus 12/11/23 12/18/23 -- Problem: OT Misc Start Date: 12/11/23 Goal Start Date Expected End Date End Date OT LTG - Pt will complete standing ADLs and functional transfers with SPV. 12/11/23 01/01/24 -- * Parris Soto NP - 12/14/2023 9:14 AM CDT Images from the original note were not included. [facility] OU Daily Progress Note [...] Noel Islas MD, 1,000 mg at 12/14/23 0608 ALPRAZolam (XANAX) tablet 0.5 mg, 0.5 mg, oral, BID PRN, Noel Islas MD, 0.5 mg at 12/13/232048 bisacodyL (DULCOLAX) suppository 10 mg, 10 mg, rectal, Once, Parris Soto NP calcium carbonate (TUMS) chewable tablet 500 mg, 200 mg of elemental calcium, oral, BID, Parris Soto NP, 500 mg at 12/14/23 0817 carvediloL (COREG) tablet 25 mg, 25 mg, oral, BID with meals (bkfst, dinner), Parris Soto NP, 25 mg at 12/14/23 0817 cholecalciferol (VITAMIN D-3) capsule 1,000 Units, 1,000 Units, oral, Daily, Parris Soto NP, 1,000 Units at 12/14/23 0817 dextrose gel in packet 15 g, 15 g, oral, Q15 Min PRN OR dextrose (D10W) 10% bolus 250 mL, 250 mL, intravenous, Q15 Min PRN, SinkEmy NP enoxaparin (LOVENOX) syringe 30 mg, 30 mg, subcutaneous, Q12H MISHA, SinkEmy NP, 30 mg at 12/14/23 08 FLUoxetine (PROzac) capsule 20 mg, 20 mg, oral, Daily, SinkEmy NP, 20 mg at 12/14/23 0817 glucagon injection 1 mg, 1 mg, intramuscular, Q30 Min PRN, SinkEmy NP insulin lispro (HumaLOG, ADMELOG) 100 unit/mL injection 0-10 Units, 0-10 Units, subcutaneous, Q4H MISHA, Emy Sanchez NP, 4 Units at 12/14/23 0818 levothyroxine (SYNTHROID) tablet 50 mcg, 50 mcg, oral, Daily, JanelNoel MD, 50 mcg at 12/14/23 08 lidocaine (ASPERCREME) 4 % patch 1 patch, 1 patch, transdermal, Q24H, Sukhjinder Cao MD, 1patch at 12/13/231811 magnesium citrate oral solution 296 mL, 296 mL, oral, Once, Parris Soto NP ondansetron (ZOFRAN) injection 4 mg, 4 mg, [...] HFrEF (heart failure with reduced ejection fraction) ([facility]/HCC) (HCC) Hyperlipidemia Hypothyroidism Insomnia Mitral regurgitation Motion sickness NSTEMI (non-ST elevated myocardial infarction) ([facility]/HCC) (HCC) Obesity AYAD on CPAP Patellar sleeve [...] Skin: warm, well perfused and extremities non-edematous Lcuio - removed Void check Labs/Imaging: Recent Labs Lab Units 12/14/23 0320 12/13/23 2100 12/13/23 1333 WBC K/cumm 7.5 7.4 7.1 HEMOGLOBIN [...] in admissions tab [facility] Discharge planning issues Assessment & Plan 12/08 [...] Type 2 diabetes mellitus without complications (CMS/HCC) ([facility]) Assessment & Plan Continue DM diet with SSI Holding home glipizide and metformin A1C 6.5 Acquired hypothyroidism Assessment & Plan Continue home levothyroxine Paroxysmal atrial fibrillation ([facility]/HCC) ([facility]) Assessment & Plan Holding home eliquis and Carvedilol 12/10 A fib controlled HR 100s, restarting Coreg 12.5 mg PO BID (home dose 50 mg PO BID) CTM 12/11 HR 90s a fib rate controlled, continue Coreg 25 mg PO BID 12/13 remains rate controlled 90s, continue Coreg 25 mg PO BID Follow up scheduled: [facility] 01/31 at 1:20 Lines/Drains/Tubes: PIV x2, Lucio- removed Void check DVT Prophylaxis: Lovenox Diet: Adult Diet Restricted; Consistent Carbohydrate Activity: WBAT GI Prophylaxis: none Code Status: LIMITED - No CPR Total time spent included the following activities caring for this patient: Patient chart review, Reviewing/obtaining history, Examination and evaluation, Counseling/educating patient/family/caregiver, Ordering medications/tests/procedures, Referring & communicating with other health rn primary care, Documenting clinical information in the health record, Independent interpretation of results, and Care coordination 45 minutes All care plans discussed with rounding/operative attending: MD Parris Engel NP Cosigned by Abhijit Allen DO at 12/14/2023 1:25 PM CDT * Parris Soto NP - 12/13/2023 4:51 PM CDT Images from the original note were not included. [facility] Floor Daily Progress Note [...] BID, Parris Soto NP, 500 mg at 09/29/24 0827 carvediloL (COREG) tablet 25 mg, 25 mg, oral, BID with meals (bkfst, dinner), Parris Soto NP, 25 mg at 12/13/23 08 cholecalciferol (VITAMIN D-3) capsule 1,000 Units, 1,000 Units, oral, Daily, Parris Soto NP, 1,000 Units at 12/13/23826 dextrose gel in packet 15 g, 15 g, oral, Q15 Min PRN OR dextrose (D10W) 10% bolus 250 mL, 250 mL, intravenous, Q15 Min PRN, SinkEmy NP enoxaparin (LOVENOX) syringe 30 mg, 30 mg, subcutaneous, Q12H MISHA, Emy Sanchez NP, 30 mg at 12/13/23826 FLUoxetine (PROzac) capsule 20 mg, 20 mg, oral, Daily, Sink, Emy Dorado NP, 20 mg at 12/13/23826 glucagon injection 1 mg, 1 mg, intramuscular, Q30 Min PRN, Emy Sanchez NP insulin lispro (HumaLOG, ADMELOG) 100 unit/mL injection 0-10 Units, 0-10 Units, subcutaneous, Q4H MISHA, Emy Sanchez NP, 2 Units at 12/13/23 1621 levothyroxine (SYNTHROID) tablet 50 mcg, 50 mcg, oral, Daily, Noel Islas MD, 50 mcg at 12/13/23826 lidocaine (ASPERCREME) 4 % patch 1 patch, 1 patch, transdermal, Q24H, Sukhjinder Cao MD, 1patch at 12/12/23 1829 ondansetron (ZOFRAN) injection 4 mg, 4 mg, [...] PRN, Noel Islas MD, 1 tablet at 12/13/23826 Past Medical: Past Medical History: Diagnosis Date [...] in admissions tab [facility] Discharge planning issues Assessment & Plan 12/08 OR with orthopedics 12/09 code stroke this morning followed by ACT secondary to hypotension. Patient transferred to OU for closer observation 12/10 bedside ECHO Closed nondisplaced intertrochanteric fracture of left femur ([facility]) ([facility]) Assessment & Plan - ortho [...] BID Type 2 diabetes mellitus without complications ([facility]) ([facility]) Assessment & Plan Continue DM diet with SSI Holding home glipizide and metformin A1C 6.5 Acquired hypothyroidism Assessment & Plan Continue home levothyroxine Paroxysmal atrial fibrillation ([facility]) ([facility]) Assessment & Plan Holding home eliquis and Carvedilol 12/10 A fib controlled HR 100s, restarting Coreg 12.5 mg PO BID (home dose 50 mg PO BID) CTM Follow up scheduled: [facility] 01/31 at 1:20 Lines/Drains/Tubes: PIV x2, Lucio DVT Prophylaxis: Lovenox Diet: Adult Diet Restricted; Consistent Carbohydrate Activity: WBAT GI Prophylaxis: none Code Status: LIMITED - No CPR Total time spent included the following activities caring for this patient: Patient chart review, Reviewing/obtaining history, Examination and evaluation, Counseling/educating patient/family/caregiver, Ordering medications/tests/procedures, Referring & communicating with other health rn primary care, Documenting clinical information in the health record, Independent interpretation of results, Care coordination, and Complex wound care 30 minutes All care plans discussed with rounding/operative attending: MD Parris Engel NP Cosigned by Kevin Corrigan MD at 12/13/2023 6:05 PM CDT * Parris Soto NP - 12/12/2023 1:30 PM CDT Images from the original note were not included. [facility] OU Daily Progress Note [...] MISHA, Emy Sanchez NP, 30 mg at 12/12/23 1038 FLUoxetine (PROzac) capsule 20 mg, 20 mg, oral, Daily, Emy Sanchez NP, 20 mg at 12/12/23 1038 glucagon [...] patch 1 patch, 1 patch, transdermal, Q24H, uSkhjinder Cao MD, 1patch at 12/11/23 1130 ondansetron [...] 1 tablet, 1 tablet, oral, Daily PRN, Janel, Noel Toscano MD, 1 tablet at 12/12/23 1038 Past [...] Lucio replaced Labs/Imaging: Recent Labs Lab Units 12/11/23 2147 12/10/23 2137 12/10/23 1217 WBC K/cumm 6.7 5.6 5.8 HEMOGLOBIN g/dL 7.9* 8.5* 8.4* HEMATOCRIT % 24.2* 25.8* 25.8* PLATELETS K/cumm 183 143* 162 Recent Labs Lab Units 12/12/23 1222 12/12/23 1036 12/12/23 0926 12/12/23 0741 12/12/23 0727 12/12/23 0406 12/11/23 23412/11/23 2147 12/10/23 2344 12/10/23 2137 SODIUM mmol/L -- -- -- -- -- [...] in admissions tab [facility] Discharge planning issues Assessment & Plan 12/08 OR with orthopedics 12/09 code stroke this morning followed by ACT secondary to hypotension. Patient transferred to OU for closer observation 12/10 bedside ECHO Closed nondisplaced intertrochanteric fracture of left femur ([facility]) ([facility]) Assessment & Plan - ortho [...] BID Type 2 diabetes mellitus without complications ([facility]) ([facility]) Assessment & Plan Continue DM diet with SSI Holding home glipizide and metformin A1C 6.5 Acquired hypothyroidism Assessment & Plan Continue home levothyroxine Paroxysmal atrial fibrillation ([facility]) ([facility]) Assessment & Plan Holding home eliquis and Carvedilol 12/10 A fib controlled HR 100s, restarting Coreg 12.5 mg PO BID (home dose 50 mg PO BID) CTM Follow up scheduled: [facility] 01/31 at 1:20 Lines/Drains/Tubes: PIV x2, Lucio DVT Prophylaxis: Lovenox Diet: Adult Diet Restricted; Consistent Carbohydrate Activity: WBAT GI Prophylaxis: none Code Status: LIMITED - No CPR Total time spent included the following activities caring for this patient: Patient chart review, Reviewing/obtaining history, Examination and evaluation, Counseling/educating patient/family/caregiver, Ordering medications/tests/procedures, Referring & communicating with other health rn primary care, Documenting clinical information in the health record, Independent interpretation of results, and Care coordination 30 minutes All care plans discussed with rounding/operative attending: MD Parris Engel NP Cosigned by Kevin Corrigan MD at 12/12/2023 1:50 PM CDT * William CelestinYumiko - 12/12/2023 11:43 AM CDT Physical Therapy [...] treatment team and contact the PT or ASSISTANT CENTER MANAGER currently assigned to this patient. If a physical therapy clinician is not assigned to this patient, please call [phone]. 12/12/23 1143 General Chart Reviewed Yes Session Type Evaluation [...] Equipment-Currently Using None Prior Function Level of [place] Independent with ADLs;Independent functional transfers;Independent with ambulation Lives With Alone Receives Help From Family;Neighbor ([facility] Rheumatology assist) Fall within the last 6 months [...] with Outstretched Arm While Standing 0 9. Emblem Maker Object from Floor from a Standing Position [...] Units 12/12/23 0406 12/11/23 2347 12/11/23 2147 12/08/23205112/08/23 1135 SODIUM mmol/L 136 -- 135 < [...] soiled or have shadowing before that time Sutures/[place]: Will be removed 3 weeks after surgical [...] on 01/18/[address] Villalobos located at [facility] 6A Please call with questions during daytime. See below for overnight issues. If you know the resident's name on the appropriate orthopaedic surgery team, please use [email or web address] to page resident directly. If questions arise and the appropriate resident can't be reached or you are calling overnight, please contact [phone] ( 7:30 PM - 6:30 AM - Floor Resident) or [phone] (24 hours/day - Consult Resident) Cosigned by Homer Villalobos MD at 12/14/2023 9:03 AM CDT * Maria Luz Hunter - 12/11/2023 12:45 PM CDT [facility] Spiritual Care Note Maintenance Coordinator Elmagarrick Hunter Triage: [phone] 12/11/23 1200 Time Spent Start Time 1225 Stop Time 1240 Time Calculation (min) 15 min Patient Spiritual Assessment Spirituality Assessed Yes Restorationist Affiliation [place] [employer] [place] Active in Advent Yes Spiritual Needs Prayer Clinical Encounter Type Visited With Patient and family together Response Type Routine visit Routine Visit Introduction Reason for visit Support Referral From Patient Outcomes and Progress Aligning care with patient's values Achieved Preserve dignity and respect Achieved Demonstrating care and respect Achieved Jina affirmation Achieved Establish rapport and connectedness Achieved Interventions Interventions Prayer;Active listening;Offer emotional support;Offer spiritual/confucianism support;Explore jina and values Plan Future Plan [...] not assigned to this patient, please call [phone]. 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) Driving Yes Mode of Transportation Car ADL Assistance Independent Instrumental ADL (IADL) Assistance Independent Vocational/Occupation Retired Type of Occupation Obvious Fall within the last 6 months Yes [...] name and address after me Miguel Carrasquillo [address] [place] [address] Without looking at the clock, tell me [...] Complete 5 min Trails A & B ([place] Making Test) Patient completed Trails A in [...] - Patient will perform toilet transfer to/from [facility] [place] Cyrus 12/11/23 12/18/23 -- Problem: OT Misc Start Date: 12/11/23 Goal Start Date Expected End Date End Date OT LTG - Pt will complete standing ADLs and functional transfers with SPV. 12/11/23 01/01/24 -- * Parris Soto NP - 12/11/2023 11:35 AM CDT Images from the original note were not included. [facility] OU Daily Progress Note [...] mL, 250 mL, intravenous, Q15 Min PRN, SinkEmy NP enoxaparin (LOVENOX) syringe 30 mg, 30 mg, subcutaneous, Q12H MISHA, Sink, Emy Dorado NP, 30 mg at 12/11/23 0845 FLUoxetine (PROzac) capsule 20 mg, 20 mg, oral, Daily, Sink, Emy Dorado NP, 20 mg at 12/11/23 0845 glucagon injection 1 mg, 1 mg, intramuscular, Q30 Min PRN, Sink, Emy Dorado NP insulin lispro (HumaLOG, ADMELOG) 100 unit/mL injection 0-10 Units, 0-10 Units, subcutaneous, Q4H MISHA, Sink, Emy Dorado NP, 2 Units at 12/11/23 0845 levothyroxine [...] 8 mL syringe, 1-8 mL, intravenous, Oncein lyric, Kevin Corrigan MD polyethylene glycol (MIRALAX) packet [...] Labs/Imaging: Recent Labs Lab Units 12/10/23213612/10/23 1217 12/09/232223 WBC K/cumm 5.6 5.8 8.1 HEMOGLOBIN g/dL 8.5* 8.4* 8.8* HEMATOCRIT % 25.8* 25.8* 27.8* PLATELETS K/cumm 143* 162 164 Recent Labs Lab Units 12/11/23 0840 12/11/23 0344 12/10/23 2344 12/10/23213612/09/23 2350 12/09/23222312/08/23205112/08/23 1135 SODIUM mmol/L -- -- -- 135 [...] in admissions tab [facility] Discharge planning issues Assessment & Plan 12/08 OR with orthopedics 12/09 code stroke this morning followed by ACT secondary to hypotension. Patient transferred to OU for closer observation 12/10 bedside ECHO Closed nondisplaced intertrochanteric fracture of left femur (CMS/HCC) ([facility]) Assessment & Plan - ortho [...] CTM Type 2 diabetes mellitus without complications (CMS/HCC) ([facility]) Assessment & Plan Continue DM diet with SSI Holding home glipizide and metformin A1C 6.5 Acquired hypothyroidism Assessment & Plan Continue home levothyroxine Paroxysmal atrial fibrillation (CMS/HCC) ([facility]) Assessment & Plan Holding home eliquis and Carvedilol 12/10 A fib controlled HR 100s, restarting Coreg 12.5 mg PO BID (home dose 50 mg PO BID) CTM Follow up scheduled: [facility] 01/31 at 1:20 Lines/Drains/Tubes: PIV x2, Lucio DVT Prophylaxis: Lovenox Diet: Adult Diet Restricted; Consistent Carbohydrate Activity: WBAT GI Prophylaxis: none Code Status: LIMITED - No CPR Total time spent included the following activities caring for this patient: Patient chart review, Reviewing/obtaining history, Examination and evaluation, Counseling/educating patient/family/caregiver, Ordering medications/tests/procedures, Referring & communicating with other health rn primary care, Documenting clinical information in the health record, [...] soiled or have shadowing before that time Sutures/Great Neck: Will be removed 3 weeks after surgical [...] on 01/18/[address] Villalobos located at [facility] Edilma True Zamudio M.D. Orthopaedic Surgery Resident, PGY-2 [facility] For questions please reach out to: [facility] 7:30p-6:30a (Night Floor Resident): [phone] Consult Resident: [phone] Specific Resident: Please use [employer] (PrepClass) to page/call appropriate OrthopaedicSurgery Team/Resident Not sure which resident is on for the service? Check the Call Schedule: IRLANDA for [facility] Orthopaedic Surgery (pw: [facility]) For ortho primary adult patients, Thu - Thu 6a-6p: Call [phone] nurses station for PA/RISK CONSULTING TREASURY DIRECTOR ([phone]) For ortho primary pediatric patients, Thu - Thu 6a-6p: Call 10th floor nurses station for RISK CONSULTING TREASURY DIRECTOR Please call with questions during daytime. See below for overnight issues. If you know the resident's name on the appropriate orthopaedic surgery team, please use PrepClass to page resident directly. If questions arise and the appropriate resident can't be reached or you are calling overnight, please contact [phone] ([facility] 7:30 PM - 6:30 AM - Floor Resident) or [phone] (24 hours/day - Consult Resident) Cosigned by Homer Villalobos MD at 12/11/2023 9:26 AM CDT * Emy Sanchez NP - 12/10/2023 2:54 PM CDT Images from the original note were not included. 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 [...] Mahogany Zamudio MD, 2,000 mg at 12/10/23 1455 dextrose [...] MISHA, Emy Sanchez NP, 4 Units at 12/10/23 1215 levothyroxine [...] Motion sickness NSTEMI (non-ST elevated myocardial infarction) ([facility]/HCC) (HCC) Obesity AYAD on CPAP Patellar sleeve [...] 1213 12/10/23 0739 12/10/23 0439 12/09/23 2350 12/09/23 2224 12/08/23 2052 12/08/23 1135 SODIUM mmol/L -- -- -- -- [...] in admissions tab [facility] Discharge planning issues Assessment & Plan 12/08 [...] hypotension Type 2 diabetes mellitus without complications ([facility]) ([facility]) Assessment & Plan Continue DM diet with SSI Holding home glipizide and metformin A1C 6.5 Acquired hypothyroidism Assessment & Plan Continue home levothyroxine Paroxysmal atrial fibrillation ([facility]) ([facility]) Assessment & Plan Holding home [...] medications/tests/procedures, Referring & communicating with other health rn primary care, Documenting clinical information in the health record, [...] from the original note were not included. [facility] Floor Daily Progress Note [...] (premix) 2,000 mg, 2,000 mg, intravenous, Q8H [facility], Mahogany Zamudio MD, 2,000 mg at 12/10/23 0615 dextrose gel in packet 15 g, 15 g, oral, Q15 Min PRN OR dextrose (D10W) 10% bolus 250 mL, 250 mL, intravenous, Q15 Min PRN, Emy Sanchez NP enoxaparin (LOVENOX) syringe 30 mg, 30 mg, subcutaneous, Q12H MISHA, Emy Sanchez NP FLUoxetine (PROzac) capsule 20 mg, 20 mg, oral, Daily, SinkEmy NP, 20 mg at 12/10/23 0755 furosemide [...] injection 0-10 Units, 0-10 Units, subcutaneous, Q4H [facility], Emy Sanchez NP, 2 Units at 12/10/23 0445 labetaloL [...] Emy Dorado NP, LastRate: 75 mL/hr at 12/10/23618, 75 mL/hr at 12/10/23 06 spironolactone (ALDACTONE) tablet 50 mg, 50 mg, oral, Daily, Noel Islas MD, 50 mg at 12/10/23 075 Past Medical: Past Medical History: Diagnosis Date Adrenal nodule (HCC) Anxiety Aortic stenosis, moderate Cardiomyopathy (HCC) Diabetes mellitus (HCC) GERD (gastroesophageal reflux disease) Heart murmur HFrEF (heart failure with reduced ejection fraction) (CMS/HCC) (HCC) Hyperlipidemia Hypothyroidism Insomnia Mitral regurgitation Motion sickness NSTEMI (non-ST elevated myocardial infarction) ([facility]/HCC) (HCC) Obesity AYAD on CPAP Patellar sleeve [...] Units 12/10/23 0739 12/10/23 0439 12/09/23 2350 12/09/23222312/08/23205112/08/23 1135 SODIUM mmol/L -- -- -- 140 [...] and agreeswith it. Electronically signed by: Eldon Castañead M.D. XR Hip Left 1 View Result [...] in admissions tab [facility] Discharge planning issues Assessment & Plan 12/08 OR with orthopedics Closed nondisplaced intertrochanteric fracture of left femur ([facility]) ([facility]) Assessment & Plan - ortho consult - 12/09 OR for ORIF of L intertrochanteric femur fx - WBAT, PT/OT -Bone health referral Resume home anticoagulation at discharge WAI (generalized anxiety disorder) Assessment & Plan Home xanax, continued PRN Essential hypertension Assessment & Plan Continue home Coreg, lasix, cozaar, spironolactone Type 2 diabetes mellitus without complications ([facility]) ([facility]) Assessment & Plan Continue DM diet with SSI Holding home glipizide and metformin A1C 6.5 Acquired hypothyroidism Assessment & Plan Continue home levothyroxine Paroxysmal atrial fibrillation ([facility]) ([facility]) Assessment & Plan Holding home [...] medications/tests/procedures, Referring & communicating with other health rn primary care, Documenting clinical information in the health record, [...] residual Procedure(s): 12/09/23: DHS L IT fx [phone] (pt) [phone] (son) Interval History: 12/10/23: NAEO. AFVSS. WBC [...] Units 12/10/23 0439 12/09/23 2350 12/09/23 2224 12/08/23205112/08/23 1135 SODIUM mmol/L -- -- 140 -- [...] soiled or have shadowing before that time Sutures/Great Neck: Will be removed 3 weeks after surgical [...] on 01/18/[address] Villalobos located at [facility] 6A Please call with questions during daytime. See below for overnight issues. If you know the resident's name on the appropriate orthopaedic surgery team, please use [email or web address] to page resident directly. If questions arise and the appropriate resident can't be reached or you are calling overnight, please contact [phone] ( 7:30 PM - 6:30 AM - Floor Resident) or [phone] (24 hours/day - Consult Resident) * [place] [...] soiled or have shadowing before that time Sutures/Great Neck: Will be removed 3 weeks after surgical [...] on 01/18/[address] Villalobos located at [facility] [place] Humphrey MD Clinical Fellow Orthopedic Trauma Service [facility] Dictated using Fluency Direct Software. Auto Parts Clerk variances may occur. * Daniela Brady MSW - 12/09/2023 12:00 PM CDT Trauma Services rounding completed by RN Coordinator Kevin Mckeon on this date. Pt provided withTrauma Services booklet, TSN information, and fall prevention handout. RICH García, MPH, [facility] Trauma Survivors Customer Project Manager [facility] Trauma Services (c) [phone] * Emy Sanchez NP - 12/09/2023 11:41 AM CDT Images from the original note were not included. [facility] Floor Daily Progress Note [...] 30 mg, 30 mg, subcutaneous, Q12H MISHA, Natan Islas MD, 30 mg at 12/08/23 2336 FLUoxetine (PROzac) capsule 20 mg, 20 mg, oral, Daily, Sink, Emy Dorado NP, 20 mg at 12/09/23 0900 furosemide [...] 0-10 Units, 0-10 Units, subcutaneous, Q4H MISHA, Laura, Emy Dorado NP labetaloL (NORMODYNE,TRANDATE) injection 10 mg, 10 mg, intravenous, Once PRN, Alia Ibarra MD levothyroxine (SYNTHROID) tablet 50 mcg, 50 mcg, oral, Daily, Noel Islas MD, 50 mcg at 12/09/23 0826 lidocaine (ASPERCREME) 4 % patch 1 patch, [...] Noel Islas MD, 17 g at 12/09/23 0826 rosuvastatin (CRESTOR) tablet 20 mg, 20 mg, oral, Daily, Noel Islas MD, 20 mg at 826 senna (SENOKOT) tablet 1 tablet, 1 tablet, oral, Daily PRN, oNel Islas MD sodium chloride 0.9% infusion, 75 mL/hr, intravenous, Continuous, Sink, Emy Dorado NP, LastRate: 75 mL/hr at 12/09/23 0843, 75 mL/hr at 12/09/23 0843 spironolactone (ALDACTONE) tablet 50 mg, 50 mg, oral, Daily, Noel Islas MD, 50 mg at 12/09/23 08 Past Medical: Past Medical History: Diagnosis Date Adrenal nodule (HCC) Anxiety Aortic stenosis, moderate Cardiomyopathy (HCC) Diabetes mellitus (HCC) GERD (gastroesophageal reflux disease) Heart murmur HFrEF (heart failure with reduced ejection fraction) ([facility]/HCC) (HCC) Hyperlipidemia Hypothyroidism Insomnia Mitral regurgitation Motion sickness NSTEMI (non-ST elevated myocardial infarction) ([facility]/HCC) (HCC) Obesity AYAD on CPAP Patellar sleeve fracture of left knee PONV (postoperative nausea and vomiting) Pulmonary embolism ([facility]) Sleep apnea Zenker's diverticulum Surgical [...] on this tractionview. Electronically signed by: Shelton Faagn M.D., Ph.D XR Shoulder Left 2 or [...] and updated in admissions tab Home pharmacy [facility] Discharge planning issues Assessment & Plan 12/08 OR with orthopedics Closed nondisplaced intertrochanteric fracture of left femur ([facility]) ([facility]) Assessment & Plan - ortho consult - Ortho planning OR for ORIF of L intertrochanteric femur fx - NWB LLE - NPO until further notice -Bone health referral Resume home anticoagulation at discharge WAI (generalized anxiety disorder) Assessment & Plan Home xanax, continued PRN Essential hypertension Assessment & Plan Continue home Coreg, lasix, cozaar, spironolactone Type 2 diabetes mellitus without complications ([facility]) ([facility]) Assessment & Plan Continue DM diet with SSI Holding home glipizide and metformin A1C pending Acquired hypothyroidism Assessment & Plan Continue home levothyroxine Paroxysmal atrial fibrillation ([facility]) ([facility]) Assessment & Plan Holding home [...] medications/tests/procedures, Referring & communicating with other health rn primary care, Documenting clinical information in the health record, [...] Acute and Critical Care Surgery * Cynthia Metcalf, BRADLEY - 12/09/2023 7:10 AM CDT Occupational Therapy [...] sided residual Procedure(s): DHS L IT fx [phone] (pt) [phone] (son) Interval History: 12/09/23: AFVSS. WBC 6.5, [...] neg Lab/Diagnostic Review: Recent Labs Lab Units 12/09/23233912/08/23205112/08/23 1135 SODIUM mmol/L -- -- 137 POTASSIUM [...] Zamudio M.D (Madeline). Orthopaedic Surgery Resident, PGY-2 [facility] For questions please reach out to: [facility] 7:30p-6:30a (Night Floor Resident): [phone] Consult Resident: [phone] Specific Resident: Please use [employer] (PrepClass) to page/call appropriate OrthopaedicSurgery Team/Resident Not sure which resident is on for the service? Check the Call Schedule: AMION for [facility] Orthopaedic Surgery (pw: [facility]) For ortho primary adult patients, Thu - Thu 6a-6p: Call [phone] nurses station for PA/RISK CONSULTING TREASURY DIRECTOR ([phone]) For ortho primary pediatric patients, Thu - Thu 6a-6p: Call 10th floor nurses station for RISK CONSULTING TREASURY DIRECTOR Please call with questions during daytime. See below for overnight issues. If you know the resident's name on the appropriate orthopaedic surgery team, please use PrepClass to page resident directly. If questions arise and the appropriate resident can't be reached or you are calling overnight, please contact [phone] ([facility] 7:30 PM - 6:30 AM - Floor Resident) or [phone] (24 hours/day - Consult Resident) Cosigned by Homer Villalobos MD at 12/09/2023 10:54 AM CDT * Alia Ibarra MD - 12/08/2023 10:50 PM CDT Images from the original note were not included. [facility] ED Transfer Accept Note Prema [...] nondisplaced intertrochanteric fracture of left femur (CMS/HCC) ([facility]) Assessment & Plan - ortho [...] plan as documented by the resident. Kevin Corrigan MD Section of Acute and [...] L intertrochanteric femur fx Requesting Provider: ED [facility] Dx: L intertrochanteric femur fx Injury Mechanism: fall going up a step OI: None PMHx: L DFR s/p distal femur fx (2019), Afib on eliquis, PE, HTN, HLD, T2DM, CHF, CVA with right sided residual Plan: PENDING IMN+ORIF of L intertrochanteric femur fx Procedure(s): PENDING IMN+ORIF of L intertrochanteric femur fx [phone] (pt) [phone] (son) HPI: 83 y.o. right hand dominant [...] HFrEF (heart failure with reduced ejection fraction) ([facility]/HCC) (HCC) Hyperlipidemia Hypothyroidism Insomnia Mitral regurgitation NSTEMI (non-ST elevated myocardial infarction) ([facility]) (HCC) Obesity AYAD on CPAP Patellar sleeve [...] Consult was/will be staffed with senior/attending/resident team income tax consultant who agrees w plan. Follow-up will be arranged by the orthopaedic team. Will plan for follow-up at [facility] (call [phone] to make an appointment) or [facility] (call [phone] to make an appointment) pending hospital/ ED course. Giacomo Carrizales M.D. Orthopaedic Surgery Resident, PGY-1 [facility] For questions please reach out to: [facility] 7:30p-6:30a (Night Floor Resident): [phone] Consult Resident: [phone] Specific Resident: Please use [employer] ([email or web address]) to page/call appropriate OrthopaedicSurgery Team/Resident Not sure which resident is on for the service? Check the Call Schedule: AMIISHA for [facility] Orthopaedic Surgery (pw: [facility]) For ortho primary adult patients, Thu - Thu 6a-6p: Call [phone] nurses station for PA/RISK CONSULTING TREASURY DIRECTOR ([phone]) For ortho primary pediatric patients, Thu - Thu 6a-6p: Call 10th floor nurses station for RISK CONSULTING TREASURY DIRECTOR Cosigned by Homer Villalobos MD at 12/08/2023 [...] a past medical history of Adrenal nodule (HCC), Anxiety, Aortic stenosis, moderate, Cardiomyopathy (HCC), Diabetes mellitus (HCC), GERD (gastroesophageal reflux disease), Heart murmur, HFrEF (heart failure with reduced ejection fraction) (CMS/HCC) (HCC), Hyperlipidemia, Hypothyroidism, Ins omnia, Mitral regurgitation, Motion sickness, NSTEMI (non-ST elevated myocardial infarction) (CMS/HCC) ([facility]), Obesity, AYAD on CPAP, Patellar sleeve fracture of left knee, PONV (postoperative nausea and vomiting), Pulmonary embolism (HCC), Sleep apnea, and Zenker's diverticulum. PSHX: has [...] glucose diagnostic (glucose blood) strip blood-glucose meter [facility] CALCIUM CARBONATE ORAL carvediloL (COREG) 25 mg [...] and systolic function - Recommend consultation with 911 telecommunicator given recent life stressors We appreciate the ability to be involved in this patient's care. If after 5PM or on weekends, please page the licensed nuclear operator income tax consultant with any questions or concerns. Emile Wallace [...] to pain medications. Recommendations - NPO until DRILLING SUPERVISOR eval - Increase neurochecks to q4h - [...] Normal, no sensory loss Best Language (9.): Rnvv-ah-ulifijiu aphasia Dysarthria (10.): Normal Extinction and Inattention [...] bilateral visual stimulus Assessment & Plan: Ms. Pearec is a 83 y.o. year old female [...] or mechanical thrombectomy Recommendations - NPO until DRILLING SUPERVISOR eval - Increase neurochecks to q4h - [...] evaluation please contact the Neuro Consult Senior isha FOURNIER. Denisa Pearce MD 12/10/2023, 11:36 AM Subjective [...] (Added by Conv) Anesthesia problems Neg Hx Social History: [...] follow up tomorrow with patient and contact [facility] for completing DPOA. The services provided in this conversation and described in this note are non- billable and to be used for ongoing clinical care only. RICH Cabrera * Noel Islas MD - 12/08/2023 6:51 PM CDTAssociated Order(s): Consult to Trauma Surgery [facility] Team A Trauma Surgery History and Physical [...] Disposition of Patient: Admit to trauma service-Floor [facility] Trauma Surgery December 08, 2023 6:52 PM [...] Response: Oriented Best Motor Response: Obeys commands Pilar Coma Scale Score: 15 C-Spine Precautions: No [...] plan as documented by the resident. Kevin Corrigan MD Section of Acute and Critical Care Surgery * Giacomo Carrizales MD - 12/08/2023 3:04 PM CDTAssociated Order(s): CONSULT TO ORTHO-TRAUMA Orthopaedic Surgery Consult December 08, 2023 3:14 PM Reason for Consult: L intertrochanteric femur fx Requesting Provider: ED [facility] Dx: L intertrochanteric femur fx Injury Mechanism: fall going up a step OI: None PMHx: L DFR s/p distal femur fx (2019), Afib on eliquis, PE, HTN, HLD, T2DM, CHF, CVA with right sided residual Plan: PENDING IMN+ORIF of L intertrochanteric femur fx Procedure(s): PENDING IMN+ORIF of L intertrochanteric femur fx [phone] (pt) [phone] (son) HPI: 83 y.o. right hand dominant [...] Consult was/will be staffed with senior/attending/resident team income tax consultant who agrees w plan. Follow-up will be arranged by the orthopaedic team. [facility] plan [facility] follow-up at [facility] (call [phone] to make an appointment) or [facility] (call [phone] to make an appointment) pending hospital/ ED course. Giacomo Carrizales M.D. Orthopaedic Surgery Resident, PGY-1 [facility] For questions please reach out to: [facility] 7:30p-6:30a (Night Floor Resident): [phone] Consult Resident: [phone] Specific Resident: Please use [employer] ([email or web address]) to page/call appropriate OrthopaedicSurgery Team/Resident Not sure which resident is on for the service? Check the Call Schedule: IRLANDA for [facility] Orthopaedic Surgery (pw: [facility]) For ortho primary adult patients, Thu - Thu-6p: Call [phone] nurses station for PA/RISK CONSULTING TREASURY DIRECTOR ([phone]) For ortho primary pediatric patients, Thu-6p: Call 10th floor nurses station for RISK CONSULTING TREASURY DIRECTOR Cosigned by Homer Villalobos MD at 12/08/2023 7:09 PM CDT documented in this encounter Nursing Notes * Tiara Mondragon RN - 12/10/2023 3:15 [place] [id number] [place] 6400 at 1515. Two nurses teamed [...] RN - 12/08/2023 9:48 PM CDT Bed: ED4-02 Expected date: Expected time: Means of arrival: Comments: 1- Martha Trimble RN 12/08/23 214 * Moni Mcmanus RN - 12/08/2023 6:15 [...] displaced fracture of left femoral neck (HCC) 12/08/2023 Closed nondisplaced intertrochanteric fracture of left femur ([facility]/HCC) ([facility]) 12/08/2023 Hyperlipidemia 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 ([facility]) ([facility]) 10/11/2021 Essential tremor History of nephrolithiasis 03/21/2021 Pica in adults 08/21/2020 Thyroid nodule 08/21/2020 Moderate episode of recurrent major depressive disorder ([facility]) 08/21/2020 AYAD on CPAP 08/21/2020 Gastro-esophageal reflux disease without esophagitis 06/05/2019 WAI (generalized anxiety disorder) 06/05/2019 Slow transit constipation 06/05/2019 Acquired hypothyroidism 05/31/2019 Type 2 diabetes mellitus without complications ([facility]) ([facility]) 05/31/2019 Essential hypertension 05/31/2019 Presence of left artificial knee joint 05/25/2019 Paroxysmal atrial fibrillation ([facility]) ([facility]) 08/18/2017 Past Medical History: Diagnosis Date Adrenal nodule ([facility]) Anxiety Aortic stenosis, moderate Cardiomyopathy ([facility]) Diabetes mellitus ([facility]) GERD (gastroesophageal reflux disease) Heart murmur HFrEF (heart failure with reduced ejection fraction) ([facility]) ([facility]) Hyperlipidemia Hypothyroidism Insomnia Mitral regurgitation NSTEMI (non-ST elevated myocardial infarction) ([facility]) ([facility]) Obesity AYAD on CPAP Patellar sleeve fracture of left knee PONV (postoperative nausea and vomiting) Pulmonary embolism ([facility]) Sleep apnea Zenker's diverticulum Past [...] the resident's note. Andre Willson MD 12/08/23 1437 Steve Huber MD 12/08/23 1803 Steve Huber MD 12/09/23 0746 * Юлия Gale RN - 12/08/2023 11:20 AM CDT Pt arrives here after a fall at home ground level outside in grass after missing a step around 1000. 50mcg fentynal given at 1030. BS 96. Arrives 8/10 Left hip pain and shortened. - LOC. -HS. +BT. Son at bedside. PMH: Sleep apnea, DM. VSS. GCS 15. * Suzie Mckeon RN - 12/08/2023 11:19 AM CDT Bed: [facility] Expected date: Expected time: Means of arrival: [...] Support System Family members (Elio Culp (Son) [phone]) Anticipated discharge level of care group home facility (short term care) Does the patient need discharge transport arranged? 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 let VM x 2for Aydee in admissions [phone] to check bed availability, accepting MD information - awaitingcall back as of this time. Discharge Barriers: pending bed availability, insurance authorization Education Needs Identified (plan):TBD F/U Appointments: to be scheduled prior to discharge Addendum as of 1307 - CM left another for product inspection coordinator Aydee [phone] - awaiting call back as of this time Addendum as of 1413 - CM received information from Aydee in [facility], [facility] , [place] . Insurance auth pending Patient's Identified Problem/Goal Problem:?Ensure acute medical needs are met and that patient has a safe discharge plan. Goal:?Secure a discharge plan that patient/family are agreeable with?and ensure patient has continuum of care. Patient and/or family are agreeable with plan. manager statistics will continue to follow and assist with discharge planning as needed. If any further discharge needs arise, please contact the covering field case manager. * Assessment & Plan Note - Parris Soto NP - 12/15/2023 11:12 AM CDT Associated Problem(s): Hyponatremia 12/14 Na 128, started PO tablets 12/15 Na 129 - Recheck BMP at SNF in 1 week * Provider Query - [...] severity. Vitamin and Mineral Nutrition Information System. [place], World Health Organization, 2010 (WHO/NMH/NHD/MNM/11.1) http://www.who.int/vmnis/indicators/haemoglobin.pdf https://acphospitalist.org/archives//coding.htm https://acphospitalist.org/archives//kuzgvv-isjvb-vpii-anemia.htmhttps:// [facility].org/archives//vasqyw-pzfxl-mfvo-anemia.htm From the ICD-10-CM Coding Guidelines, use of terms such as likely, suspected, possible, or probable(associated with a specific diagnosis that is being evaluated, monitored, or treated as if it exists) are acceptable and can be coded in the inpatient setting when documented at the time of discharge. This documentation will become part of the patient???s medical record. Jennifer Mcnulty RN, CCDS Clinical Documentation Manager Psychiatry [phone] [email or web address] * Provider Query - Emy Sanchez NP [...] become part of the patient???s medical record. Jennifer Mcnulty RN, CCDS Clinical Documentation Manager Psychiatry [phone] [email or web address] * Plan of Care - Dariana Washington RN - 12/14/2023 1:20 PM CDT Goals: Clinical Goals for the Shift: Monitor VS, monitor I&Os, pain management, Q2 turns, out of bed to chair Shelter Patient Centered Goal for Treatment: discharge Problem: [...] Support System Family members (Elio Culp (Son) [phone]) Anticipated discharge level of care group home facility (short term care) Does the patient [...] left displaced IT fracture ADD: 12/14 Referrals: Engineering Assistant noted patient has been recommended for Inpatient Rehab by PT/OT. Engineering Assistant met with the patient/family at bedside to discuss recommendations by therapy and to work on a potential discharge disposition plan, patient/family interested in SNF placement as of this time. manager statistics provided a list of SNF choices to patient and family. Patient and family selected the following choices (preference order): [facility], [facility], [facility], [facility], [facility] Electronic referrals sent out via [facility]. Awaiting responses as of this time. Discharge [...] and/or family are agreeable with plan. manager statistics will continue to follow and assist with discharge planning as needed. If any further discharge needs arise, please contact the covering field case manager. * [facility] Note - Ingrid Win RN - 12/14/2023 11:56 AM CDT Images from the original note were not included. Patient Information: Head to Toe Assess Default Flowsheet Data (most recent) Complex Assessment - 12/14/23 1105 Wound 12/09/23 Incision Thigh Left;Lateral Wound Properties Date First Assessed: 12/09/23 Time First Assessed: 1707 Present on Original Admission: N Primary Wound Type: Incision Location: Thigh Location Orientation: Left;Lateral Urine Assessment Urine Color Crissy Urine Appearance Clear Urine Odor No odor , Meds and Admin Active Only All Meds/Most Recent Administrations ondansetron (ZOFRAN) injection 4 mg [[id number]] Ordering Provider: Andre Willson MD Status: Dispensed (Past End Date/Time) Ordered On: 12/08/23 1131 Starts/Ends: 12/08/23 1132 - 12/09/23 1132 Ordered Dose (Remaining/Total): 4 mg (1/) Route: intravenous Frequency: Once Ordered Rate/Order Duration: -- / 2 Minutes (No admins scheduled or recorded for this medication) ketamine (KETALAR) injection 10 mg [[id number]] Ordering Provider: Steve Huber MD Status: Completed (Past End Date/Time) Ordered On: 12/08/23 1140 Starts/Ends: 12/08/23 1141 - 12/08/23 1145 Ordered Dose (Remaining/Total): 10 mg (0/1) Route: intravenous Frequency: Once Ordered Rate/Order Duration: -- / 2 Minutes Line Med Link Info Comment Peripheral IV 12/08/23 18 G Anterior;Left;Proximal Forearm 12/08/23 1143 by Юлия Gale RN -- Timestamps Action Dose / Duration Route Other Information 12/08/23 1143 Given 10 mg 2 Minutes intravenous Performed by: Юлия Gale RN Scanned Package: 60643-844-56 fentaNYL (SUBLIMAZE) preservative free injection 50 mcg [[id number]] Ordering Provider: Steve Huber MD Status: Completed [...] Performed by: Priscilla Avalos RN Scanned Package: 0677-5705-36 HYDROmorphone (DILAUDID) injection 0.5 mg [[id number]] Ordering Provider: Dick Nova MD Status: Completed [...] Dose / Duration Route Other Information 12/08/23 143 Given 0.5 mg 2 Minutes intravenous Performed by: Юлия Gale RN Scanned Package: 8725-0662-98 lidocaine (ASPERCREME) 4 % patch 1 patch [[id number]] Ordering Provider: Sukhjinder Cao MD Status: Dispensed [...] Performed by: Anh Savage RN Scanned Package: 3319-8338-52 ALPRAZolam (XANAX) tablet 0.5 mg [[id number]] Ordering Provider: Noel Islas MD Status: Dispensed Ordered On: 12/08/232249 Start: 12/08/232249 Ordered Dose (Remaining/Total): 0.5 mg (--/--) Route: oral Frequency: 2 times daily PRN Ordered Rate/Order Duration: -- / -- Timestamps Action Dose Route Other Information 12/13/232048 Given 0.5 mg oral Performed by: Alfredo Lind RN Scanned Package: 06812-859-82 FLUoxetine (PROzac) capsule 20 mg [[id number]] Ordering Provider: Emy Sanchez NP Status: Dispensed Ordered On: 12/08/232249 Start: 12/09/23899 Ordered Dose (Remaining/Total): 20 mg (--/--) Route: oral Frequency: Daily Ordered Rate/Order Duration: -- / -- Timestamps Action Dose Route Other Information 12/14/23816 Given 20 mg oral Performed by: Dariana Washington RN Scanned Package: 31219-345-68, 89846-931-52 levothyroxine (SYNTHROID) tablet 50 mcg [[id number]] Ordering Provider: Noel Islas MD Status: Dispensed Ordered On: 12/08/232249 Start: 12/09/23899 Ordered Dose (Remaining/Total): 50 mcg (--/--) Route: oral Frequency: Daily Ordered Rate/Order Duration: -- / -- Admin Instructions: Administer on an empty stomach, preferably 30 minutes before breakfast. Take 4 hours apart from antacids, iron and calcium products. Separate from tube feeds, if applicable. Timestamps Action Dose Route Other Information 12/14/23816 Given 50 mcg oral Performed by: Dariana Washington RN Scanned Package: 50566-217-68 rosuvastatin (CRESTOR) tablet 20 mg [[id number]] Ordering Provider: Noel Islas MD Status: Dispensed Ordered On: 12/08/232249 Start: 12/09/23899 Ordered Dose (Remaining/Total): 20 mg (--/--) Route: oral Frequency: Daily Ordered Rate/Order Duration: -- / -- Timestamps Action Dose Route Other Information 12/14/23 0817 Given 20 mg oral Performed by: Dariana Washington RN Scanned Package: 10535-113-68 acetaminophen (TYLENOL) tablet 1,000 mg [[id number]] Ordering Provider: Noel Islas MD Status: Dispensed Ordered On: 12/08/232249 Start: 12/08/232329 Ordered Dose (Remaining/Total): 1,000 mg (--/--) Route: oral Frequency: Every 6 hours Ordered Rate/Order Duration: -- / -- Timestamps Action Dose Route Other Information 12/14/23 1154 Given 1,000 mg oral Performed by: Dariana Washington RN Scanned Package: 5833-6563-51, 2669-1368-31 oxyCODONE (ROXICODONE) tablet 5 mg [[id number]] Ordering Provider: Noel Islas MD Status: Dispensed Ordered On: 12/08/232249 Start: 12/08/232249 Ordered Dose (Remaining/Total): 5 mg (--/--) Route: oral Frequency: Every 4 hours PRN Ordered Rate/Order Duration: -- / -- Timestamps Action Dose Route Other Information 12/14/23 0608 Given 5 mg oral Performed by: Alfredo Lind RN Scanned Package: 83559-184-20 polyethylene glycol (MIRALAX) packet 17 g [[id number]] Ordering Provider: Noel Islas MD Status: Dispensed Ordered On: 12/08/232249 Start: 12/09/23899 Ordered Dose (Remaining/Total): 17 g (--/--) Route: oral Frequency: Daily Ordered Rate/Order Duration: -- / -- Timestamps Action Dose Route Other Information 12/14/23 0818 Given 17 g oral Performed by: Dariana Washington RN Scanned Package: 14653-503-00 senna (SENOKOT) tablet 1 tablet [[id number]] Ordering Provider: Noel Islas MD Status: Dispensed Ordered On: 12/08/232249 Start: 12/08/232249 Ordered Dose (Remaining/Total): 1 tablet (--/--) Route: oral Frequency: Daily PRN Ordered Rate/Order Duration: -- / -- Timestamps Action Dose Route Other Information 12/14/23824 Given 1 tablet oral Performed by: Dariana Washington RN Scanned Package: 6541-9081-62 dextrose gel in packet 15 g [[id number]] Ordering Provider: Emy Sanchez NP Status: Verified [...] medication) dextrose (D10W) 10% bolus 250 mL [[id number]] Ordering Provider: Emy Sanchez NP Status: Verified [...] hour post treatment. If BG is less ubgb249 mg/dL, repeat Q15 minute BG checks and treatment. Call MD for each episode of hypoglycemia. (No admins scheduled or recorded for this medication) glucagon injection 1 mg [[id number]] Ordering Provider: Emy Sanchez NP Status: Verified [...] (HumaLOG, ADMELOG) 100 unit/mL injection 0-10 Units [[id number]] Ordering Provider: Emy Sanchez NP Status: Dispensed [...] Performed by: Dariana Washington RN Scanned Package: 5854-5313-40 ketorolac (TORADOL) 30 mg/mL injection 15 mg [[id number]] Ordering Provider: Jermaine Sanchez MD Status: Completed (Past End Date/Time) Ordered On: 12/09/231948 Starts/Ends: 12/09/232029 - 12/09/231955 Ordered Dose (Remaining/Total): 15 mg (0/1) Route: intravenous Frequency: Once Ordered Rate/Order Duration: -- / -- Admin Instructions: For Adult IV push, administer over 15 seconds Timestamps Action Dose Route Other Information 12/09/231955 Given 15 mg intravenous Performed by: Mahogany France RN Scanned Package: 30307-816-55 magnesium sulfate 4 g/100 mL in water (premix) 4 g [[id number]] Ordering Provider: Alia Ibarra MD Status: Completed [...] Performed by: Jazmyn Santos RN Scanned Package: 78216-747-31 enoxaparin (LOVENOX) syringe 30 mg [[id number]] Ordering Provider: Emy Sanchez NP Status: Dispensed Ordered On: 12/10/23 0844 Start: 12/10/23 0915 Ordered Dose (Remaining/Total): 30 mg (--/--) Route: subcutaneous Frequency: Every 12 hours scheduled Ordered Rate/Order Duration: -- / -- Timestamps Action Dose Route / Site Other Information 12/14/23 0817 Given 30 mg subcutaneous Left Upper Abdomen Performed by: Dariana Washington RN Scanned Package: 10328-902-75 sodium chloride 0.9% bolus 1,000 mL [[id number]] Ordering Provider: Emy Sanchez NP Status: Completed (Past End Date/Time) Ordered On: 12/10/23 1203 Starts/Ends: 12/10/23 1245 - 12/10/23 1210 Ordered Dose (Remaining/Total): 1,000 mL (0/1) Route: intravenous Frequency: Once Ordered Rate/Order Duration: -- / -- Timestamps Action Dose Route Other Information 12/10/23 1210 New Bag 1,000 mL intravenous Performed by: Daniela Arshad RN sodium chloride 0.9% IVPB 0-250 mL [[id number]] Ordering Provider: Emy Sanchez NP Status: Completed [...] Performed by: Daniela Arshad RN Scanned Package: 8810-2228-93 methocarbamoL (ROBAXIN) tablet 500 mg [[id number]] Ordering Provider: Quita Abarca MD Status: Completed (Past End Date/Time) Ordered On: 12/10/231916 Starts/Ends: 12/10/231999 - 12/10/232123 Ordered Dose (Remaining/Total): 500 mg (0/1) Route: oral Frequency: Once Ordered Rate/Order Duration: -- / -- Timestamps Action Dose Route Other Information 12/10/232123 Given 500 mg oral Performed by: Carolyn Sullivan RN Comments: pt request Scanned Package: 49186-315-33 sodium chloride 0.9% bolus 500 mL [[id number]] Ordering Provider: Alia Ibarra MD Status: Completed (Past End Date/Time) Ordered On: 12/10/231937 Starts/Ends: 12/10/232014 - 12/10/232044 Ordered Dose (Remaining/Total): 500 mL (0/1) Route: intravenous Frequency: Once Ordered Rate/Order Duration: 500 mL/hr / 1 Hours Timestamps Action Dose / Rate / Duration Route Other Information 12/10/231944 New Bag 500 mL 250 mL/hr 1 Hours intravenous Performed by: Carolyn Sullivan RN Scanned Package: 5550-2474-96 ondansetron (ZOFRAN) injection 4 mg [[id number]] Ordering Provider: Alia Ibarra MD Status: Dispensed [...] 4 mg 2 Minutes intravenous Performed by: Alfredo Lind RN Scanned Package: 21097-172-96 perflutren protein-a (OPTISON) 3 mL in sodium chloride 0.9% 8 mL syringe [[id number]] Ordering Provider: Kevin Corrigan MD Status: Verified Ordered On: 12/11/23738 Start: 12/11/23738 Ordered Dose (Remaining/Total): 1-8 mL (1/1) Route: intravenous Frequency: Once in imaging Ordered Rate/Order Duration: -- / -- (No admins scheduled or recorded for this medication) perflutren protein-a (OPTISON) 3 mL in sodium chloride 0.9% 8 mL syringe [[id number]] Ordering Provider: Kevin Corrigan MD Status: Completed (Past End Date/Time) Ordered On: 12/11/23 0749 Starts/Ends: 12/11/2348 - 12/11/23 1010 Ordered Dose (Remaining/Total): 1-8 mL (0/1) Route: intravenous Frequency: Once in imaging Ordered Rate/Order Duration: -- / -- Timestamps Action Dose Route Other Information 12/11/23 1010 Given by Other 2.5 mL intravenous Performed by: Emile Gtz RDCS perflutren lipid (DEFINITY) 1.5 mL in sodium chloride 0.9% 10 mL syringe [[id number]] Ordering Provider: Kevin Corrigan MD Status: Verified Ordered On: 12/11/23 07 Start: 12/11/23 0749 Ordered Dose (Remaining/Total): 1-10 mL (1) Route: intravenous Frequency: Once in imaging Ordered Rate/Order Duration: -- / -- (No admins scheduled or recorded for this medication) cholecalciferol (VITAMIN D-3) capsule 1,000 Units [[id number]] Ordering Provider: Parris Soto NP Status: Dispensed Ordered On: 12/11/23 1152 Start: 12/11/23 1230 Ordered Dose (Remaining/Total): 1,000 Units (--/--) Route: oral Frequency: Daily Ordered Rate/Order Duration: -- / -- Admin Instructions: Each capsule contains 1,000 units (25 mcg) of cholecalciferol. Timestamps Action Dose Route Other Information 12/14/23 0817 Given 1,000 Units oral Performed by: Dariana Washington RN Scanned Package: [id number] dextrose (D10W) 10% bolus 500 mL [[id number]] Ordering Provider: Parris Soto NP Status: Completed (Past End Date/Time) Ordered On: 12/12/23 0649 Starts/Ends: 12/12/23729 - 12/12/23 1126 Ordered Dose (Remaining/Total): 500 mL () Route: intravenous Frequency: Once Ordered Rate/Order Duration: [...] Signoff by: Eneida Kaiser RN Scanned Package: [id number] insulin regular (HumuLIN R, NovoLIN R) 100 unit/mL injection 4 Units [[id number]] Ordering Provider: Parris Soto NP Status: Completed (Past End Date/Time) Ordered On: 12/12/23 0649 Starts/Ends: 12/12/23 07 - 12/12/23 0743 Ordered Dose (Remaining/Total): 0.05 Units/kg (0/1) Route: intravenous Frequency: Once Ordered Rate/Order Duration: -- / -- Admin Instructions: Administer AFTER dextrose infusion started. Dose = 0.05 units/kg; Maximum 5 units/dose. Timestamps Action Dose Route Other Information 12/12/23 0743 Given 4 Units intravenous Performed by: Clara Padilla RN Dual Signoff by: Eneida Kaiser RN Scanned Package: 7744-1532-70 carvediloL (COREG) tablet 25 mg [[id number]] Ordering Provider: Parris Soto NP Status: Dispensed Ordered On: 12/12/23 1241 Start: 12/12/23 1800 Ordered Dose (Remaining/Total): 25 mg (--/--) Route: oral Frequency: 2 times daily with meals (bkfst, dinner) Ordered Rate/Order Duration: -- / -- Timestamps Action Dose Route Other Information 12/14/23 0817 Given 25 mg oral Performed by: Dariana Washington RN Scanned Package: 9022-6322-80 carvediloL (COREG) tablet 12.5 mg [[id number]] Ordering Provider: Parrsi Soto NP Status: Completed (Past End Date/Time) Ordered On: 12/12/23 1241 Starts/Ends: 12/12/23 1315 - 12/12/23 1420 Ordered Dose (Remaining/Total): 12.5 mg (0/1) Route: oral Frequency: Once Ordered Rate/Order Duration: -- / -- Timestamps Action Dose Route Other Information 12/12/23 1420 Given 12.5 mg oral Performed by: Clara Padilla, ARMANI Scanned Package: 72591-130-17 calcium carbonate (TUMS) chewable tablet 500 mg [[id number]] Ordering Provider: Parris Soto NP Status: Dispensed Ordered On: 12/12/23 1241 Start: 12/12/23 1315 Ordered Dose (Remaining/Total): 200 mg of elemental calcium (--/--) Route: oral Frequency: 2 times daily Ordered Rate/Order Duration: -- / -- Timestamps Action Dose Route Other Information 12/14/23 0817 Given 500 mg oral Performed by: Dariana Washington RN Scanned Package: 00225-536-64 sodium chloride 0.9% IVPB 0-250 mL [[id number]] Ordering Provider: Alia Ibarra MD Status: Completed (Past End Date/Time) Ordered On: 12/13/23 0421 Starts/Ends: 12/13/23 050 - 12/13/23 0828 Ordered Dose (Remaining/Total): 0-250 mL (0/1) Route: intravenous Frequency: Once Ordered Rate/Order Duration: -- / -- Admin Instructions: Prime blood tubing and administer amount needed to clear line (usually 50-100 mL) after transfusion complete. Timestamps Action Dose Route Other Information 12/13/23827 New Bag 250 mL intravenous Performed by: Anh Savage RN Scanned Package: 9214-1903-30 sodium chloride 0.9% IVPB 0-250 mL [[id number]] Ordering Provider: Alia Ibarra MD Status: Completed (Past End Date/Time) Ordered On: 12/13/232144 Starts/Ends: 12/13/232229 - 12/13/232320 Ordered Dose (Remaining/Total): 0-250 mL (0/1) Route: intravenous Frequency: Once Ordered Rate/Order Duration: -- / -- Admin Instructions: Prime blood tubing and administer amount needed to clear line (usually 50-100 mL) after transfusion complete. Timestamps Action Dose Route Other Information 12/13/232320 New Bag 250 mL intravenous Performed by: Alfredo Lind RN Scanned Package: 3308-8176-71 magnesium sulfate 2 g/50 mL in water (premix) 2 g [[id number]] Ordering Provider: Alia Ibarra MD Status: Completed (Past End Date/Time) Ordered On: 12/13/232204 Starts/Ends: 12/13/232244 - 12/13/232339 Ordered Dose (Remaining/Total): 2 g (0/1) Route: intravenous Frequency: Once Ordered Rate/Order Duration: -- / 60 Minutes Timestamps Action Dose / Duration Route Other Information 12/13/232239 New Bag 2 g 60 Minutes intravenous Performed by: Alfredo Lind RN Scanned Package: 57832-566-63 bisacodyL (DULCOLAX) suppository 10 mg [[id number]] Ordering Provider: Parris Soto NP Status: Dispensed Ordered On: 12/14/23904 Starts/Ends: 12/14/23944 - 12/15/23 0945 Ordered Dose (Remaining/Total): 10 mg (1/1) Route: rectal Frequency: Once Ordered Rate/Order Duration: -- / -- (No admins scheduled or recorded for this medication) magnesium citrate oral solution 296 mL [[id number]] Ordering Provider: Parris Soto NP Status: Completed (Past End Date/Time) Ordered On: 12/14/23904 Starts/Ends: 12/14/23944 - 12/14/23 101 Ordered Dose (Remaining/Total): 296 mL (0) Route: oral Frequency: Once Ordered Rate/Order Duration: -- / -- Timestamps Action Dose Route Other Information 12/14/23 1013 Given 296 mL oral Performed by: Dariana Washington RN Scanned Package: 96816-234-30 , OT Eval and Treat Last 72 [...] Mobility Equipment-Available -- Wheeled walker;Single point cane -ML -- -- Home Mobility Equipment-Currently Using -- None -ML -- -- Home ADL Equipment-Available -- Solid Waste Analyst -ML -- -- Home ADL Equipment-Currently Using -- None -ML -- -- Level of [place] -- Independent with ADLs;Independent functional transfers;Independent with ambulation;Independent with homemaking with ambulation -ML -- -- Lives With -- Alone -ML -- -- Receives Help From -- Family;Neighbor son may be able to stay with 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 -ML -- -- Driving -- Yes -ML -- -- Mode of Transportation -- Car -ML -- -- ADL Assistance -- Independent -ML -- -- Instrumental ADL (IADL) Assistance -- Independent -ML -- -- Vocational/Occupation -- Retired -ML -- -- Type of Occupation -- Obvious -ML -- -- Fall within the last [...] and address after me -- Miguel Carrasquillo [address] [place] [address] -ML -- -- Without looking at the [...] ADL independence;Decreased IADL independence;Decreased frequency/variety of movement - -- -- Barriers to Discharge -- Current ADL Status;Current Mobility Status - -- -- Barrier Comments -- fall risk - -- -- Plan -- Plan of care initiated;If this is the last note, consider this the discharge summary - ---- OT Recommendation -- Inpatient Rehab Facility -ML -- -- Patient at high risk for -- Falls;Injury due to decreased ability to care for self;Readmission;Injury due to reduced functional status;Injury due to balance deficits;Injury at home as patient has notreturned to prior level of function;Developing impaired skin integrity;Prolonged dependence for self care tasks - -- -- Recommend Inpatient Rehab/Acute Rehab due [...] = Cosigned By Initials Name Effective Dates BS Cynthia Metcalf, OT 02/02/23 - BB Marilou Yuan, OT 01/06/19 - ML Molly Xavier, OT 06/30/22 - ER Geovanna Villalta, OT 02/02/23 - OT Treatment Row Name 12/14/23 0918 OT Received On 12/14/23 -ER Precautions Fall risk -ER Weight Bearing Restrictions Yes -ER LLE Weight Bearing WBAT -ER Start Time 0918 -ER Stop Time 0954 -ER Time Calculation (min) 36 min -ER User Espitia (r) = Recorded By, (t) = Taken By, (c) = Cosigned By Initials Name Effective Dates ER [place] Geovanna Leijaa, OT 02/02/23 - OT Notes Notes from 12/12/23 through 12/14/23 No notes of this type exist for this encounter. , PT Eval and Treat Last 72 Hours PT Evaluation Row Name 12/12/23 1143 12/10/23 0941 Chart Reviewed Yes -BA (r) MB (c) [...] (r) MB (c) -- -AR Level of [place] Independent with ADLs;Independent functional transfers;Independent with ambulation -BA (r) MB (c) -- -AR Lives With Alone -BA (r) MB (c) -- -AR Receives Help From Family;Neighbor Vp Rheumatology assist -BA (r) MB (c) -- -AR [...] on Floor or on a Stool 3 - BA (r) MB (c) -- 4. Standing to Sitting 0 -BA (r) MB (c) -- 5. Transfers 0 -BA (r) MB (c) -- 6. Standing Unsupported with Eyes Closed 0 -BA (r) MB (c) -- 7. Standing Unsupported with Feet Together 0 -BA (r) MB (c) -- 8. Reach Forward with Outstretched Arm While Standing 0 -BA (r) MB (c) -- 9. Emblem Maker Object from Floor from a Standing Position [...] this the discharge summary;Plan of care initiated -DORCAS (r) MB (c) -- PT Recommendation/Plan Inpatient [...] Orientation: Left;Lateral Assessments Row Name 12/14/23 0800 12/13/23199912/13/23 1600 12/13/23 1200 12/13/23 0800 Dressing Status [...] Closure Unable to assess Unable to assess [place] Theodore Theodore Row Name 12/12/231999 Dressing Status Drainage [...] Only Vital Signs 12/12 0712/13 0659 12/13 0700 12/13 1156 Most Recent Temp (??C) 36.3 [...] 12/14/23 1100 12/14/23 1000 12/14/23 0925 12/14/23 0900 12/14/23 0800 Oxygen Therapy/Pulse Ox O2 Therapy None [...] from the original note were not included. 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 Patient A&O X 4 and agreeable to sing documentation.SW spoke with [facility]. Document notarized and SW faxed to medical records. Original document provided to patient, SW created copy for SW records. Outcome of the conversation and documents [...] comfort and safety, comfort and safety, Is/Os Shelter Patient Centered Goal for Treatment: discharge Summary: [...] laboratory, and radiographic data. Emy Sanchez * Significant Event - David Christina MD [...] pain management, rest and comfort, I&O, safety Final Finisher Forging Dies Patient Centered Goal for Treatment: discharge Summary: * Significant Event - Emy Sanchez NP - 12/10/2023 11:46 AM CDT Critical [...] pain management, rest and comfort, I&Os, safety Final Finisher Forging Dies Patient Centered Goal for Treatment: discharge Summary: [...] pain management, rest and cmfort, I&O, NPO Shelter Patient Centered Goal for Treatment: Discharge Summary: [...] Cuba Humphrey MD - Fellow Anesthesiologist: Axel Ryna MD; Endy Shanks MD CHILD WELFARE ASSISTANT: Shagufta Finch CRNA Student Nurse Commissioned Police Officer: Kevin Larios Structural Engineering Project Manager: Uri Willams RN; Ayleen Espinoza RN Physician Automatic Spreader Operator: Jermaine Jaimes PA Scrub: Bethel Stevens ST DATE OF SURGERY : 12/09/2023 Preoperative Diagnosis: Pre-op Diagnosis * Closed nondisplaced intertrochanteric fracture of left femur, initial encounter ([facility]) [F12.304A] Postoperative Diagnosis: Post-op Diagnosis * Closed nondisplaced intertrochanteric fracture of left femur, initial encounter ([facility]) [L52.516A] Procedure(s): Procedure(s) (LRB): OPEN REDUCTION INTERNAL FIXATION LEFT INTERTROCHANTERIC FEMUR FRACTURE (Left) Operative Findings: IT fracture Estimated Blood Loss: 150 Intraoperative Fluids: 500 mls Specimens: No specimen collected in procedure Implants: Implant Name Type Inv. Item Serial No. Drum Loader And Unloader Lot No. [id number] No. Used Action SYNTHES Dhs/dcp 174mm 38mm 10 Hole Hip Condyle 130d Standard Barrel Plate 281.010S - [id number] SYNTHES Dhs/dcp 174mm 38mm 10 Hole Hip Condyle 130d Standard Barrel Plate 281.010S Synthes [id number] Left 1 Implanted SYNTHES 4.5mm 8mm 38mm Self Tap Large Hexagonal Socket Cortex Screw Bone 214.838 - [id number] SYNTHES 4.5mm 8mm 38mm Self Tap Large Hexagonal Socket Cortex Screw Bone 214.838 Synthes Left 1 Implanted SYNTHES 4.5mm 8mm 40mm Self Tap Large Hexagonal Socket Cortex Screw Bone 214.840 - [id number] Screw SYNTHES 4.5mm 8mm 40mm Self Tap Large Hexagonal Socket Cortex Screw Bone 214.840 Synthes Left 1 Implanted SYNTHES Dhs Dcs 36mm Compression Hip Condylar Screw Bone Stainless Steel 280.990 - [id number] SYNTHES Dhs Dcs 36mm Compression Hip Condylar Screw Bone Stainless Steel 280.990 Synthes Left 1 Implanted SYNTHES 1.7mm 750mm Crimp Cerclage Cable Orthopedic Stainless Steel 298.801.01S - [id number] SYNTHES 1.7mm 750mm Crimp Cerclage Cable Orthopedic Stainless Steel 298.801.01S Synthes [id number] Left 1 Implanted SYNTHES Dhs Dcs 12mm 8mm 2.7mm 90mm 22mm Lag Cannulated Hip Condylar 280.290 - [id number] SYNTHES Dhs Dcs 12mm 8mm 2.7mm 90mm [...] transport arranged?: No (12/09/231330) Health Insurance Coverage: [employer] Medicare Prescription Coverage: yes Pharmacy: [id number] [place], [place] - [phone] [place] [id number] Primary Care Provider: Cuba Larsen MD Prior to Admission: Functional Status: Independent with ADLs Primary Caregiver: Self Support System: Family members Home Care Services: No Outpatient Services: No Durable Medical Equipment: None Living Arrangements: Alone Type of Residence: Private residence Steps in home?: Yes, Outside of home Number of steps outside: 5 steps Medication management: Independent (12/09/231330) Potential discharge needs include: manager statistics will follow for post acute discharge needs [...] Collaboration with Patient, Provider, Direct Care Nurse, Snuff Packing Machine Operator, and other members of theHealth Care Team to assure needed interventions completed. 2. Return patient to optimal level of self-care post discharge. 3. Engineering Assistant will follow for Discharge Planning - interventions as needed 4. Anticipated level of care at discharge 5. Planned Discharge Disposition Yoly Sanford, RN * Assessment & Plan Note - [...] Hgb stable at 7.7 (7.7), DC to [facility] Treatment Plan: done 12/15 * Assessment & Plan Note - Emy Sanchez NP - 12/09/2023 6:13 AM CDT Associated Problem(s): Encounter for medication review Medications reviewed and updated in admissions tab [facility] * Assessment & Plan Note - Emy [...] 25 mg PO BID Follow up scheduled: [facility] 01/31 at 1:20 * Plan of Care - Christofer Robison - 12/09/2023 2:04 AM CDT Goals: Clinical Goals for the Shift: Finish admission Shelter Patient Centered Goal for Treatment: Discharge Summary: [...] DVT prophylaxis- resume home Eliquis at discharged -[facility] referral, started Vitamin D Resume home anticoagulation [...] admit. By: Dick Nova MD Time: 12/07 3588 Comment: Discussed FICB with ortho, they are planning for traction view film and would like to discuss with attending to confirm. Pt is on Eliquis but this may only be a relative contraindication--can discuss with pt if receive the green light from Ortho. By: Dick Nova MD Time: 12/07 8353 Comment: Pt reevaluated after signout. 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 Left [...] Marie, MD 12/08/23 1505 Whitney Lovelace MD 12/08/23 2031 documented in this encounter Plan of Treatment [...] MORE VIEWS ED 12/08/2023 7:33 PM CDT [place] CRITICAL CARE ILL/INJURED PATIENT INIT 30-74 MIN [...] - DEVICE Final Result Performing Organization Address City/[facility]/ZIP Co de Phone Number [facility] [place] [address] * (ABNORMAL) POCT glucose (12/16/2023 11:18 AM CDT) Pathologist [facility] Glucose, POC 286(H) 70 - 199 mg/dL Blood 12/16/2023 11:1 8 AM CDT 12/16/2023 11:18 AM CDT Kevin Corrigan MD LAB POCT ORDERABLES - DEVICE Final Result Performing Organization Address [facility] de Phone Number [facility] Department [place] [address] * COVID-19 Coronavirus RNA Nasopharyngeal (12/16/2023 10:15 AM CDT) [facility] COVID-19 RNA Negative Negative [facility] Nasopharyngeal 12/16/2023 10 :15 AM CDT 12/16/2023 10:33 AM CDT Narrative [facility] - 12/16/2023 11:27 AM CDT Is the patient experiencing any symptoms consistent with COVID (eg. Fever, cough, shortness of breath)?->No What is the reason for testing?->Screening for post-acute care placement ??Interpretive data Testing performed by [facility] ([phone]). This test is performed using the Source4Style[employer] Xpress CoV-2 plus assay. This is a real-time RT-PCR test intended for the qualitative detection of nucleic acid from the SARS-CoV-2. This assay has been cleared by the [place] Food and Drug administration. The performance characteristics have been verified by the [facility]. ??Results must be considered in the clinical context, and a negative result does not rule out infection. Interpretive data last revised 2023. Danette Causey NP LAB MICROBIOLOGY - GENE RAL ORDERABLES Final Result Performing Organization Address City/[facility]/[place] [address] [facility] * Type and screen (12/16/2023 9:21 AM CDT) [facility] Gian, indirect Negative ABO Rh O Positive [facility] Blood 12/16/2023 9:21 AM CDT 12/16/2023 9:35 AM CDT Narrative [facility] - 12/16/2023 10:34 AM CDT Has the patient had Daratumumab or Isatuximab in the past 6 months?->Unknown Danette Causey NP LAB BLOOD BANK TEST ORD ERABLES Final Result Performing Organization Address [facility] [place] [address] * (ABNORMAL) CBC without differential (12/16/2023 8:20 AM CDT) [facility] WBC 8.5 3.8 - 9.9 K/cumm Hgb 7.7(L) 11.9 - 15.5 g/dL [facility] Hct 23.4(L) 35.6 - 45.5 % [facility] Plt 237 150 - 400 K/cumm [facility] MPV 9.7 9.1 - 12.3 fL [facility] RBC 2.43(L) 3.90 - 5.20 M/cumm [facility] MCV 96.3 81.3 - 96.4 fL [facility] MCH 31.7 27.1 - 33.3 pg [facility] MCHC 32.9 32.3 - 35.7 g/dL [facility] RDW CV 15.4(H) 11.1 - 14.9 % [facility] RDW SD 52.3(H) 35.7 - 48.1 fL [facility] NRBC abs 0.06(H) 0.00 - 0.01 K/cumm [facility] Blood 12/16/2023 8:20 AM CDT 12/16/2023 8:29 AM CDT us Danette Causey NP LAB BLOOD ORDERABLES Fi nal Result Performing Organization Address City/[facility] Co de Phone Number [facility] [place] [address] * Mislabeled Test (12/16/2023 8:14 AM CDT) Location Other location Reason Label discrepancy [facility] Mislabel resolution Testing canceled [facility] Blood 12/16/2023 8:14 AM CDT 12/16/2023 8:30 AM CDT Kevin Corrigan MD LAB BLOOD ORDERABLES F inal Result Performing Organization Address [facility] Co de Phone Number [facility] [place] [address] * POCT glucose (12/16/2023 7:50 AM CDT) Glucose, POC 176 70 - 199 mg/dL Blood 12/16/2023 7:50 AM CDT 12/16/2023 7:50 AM CDT Kevin Corrigan MD LAB POCT ORDERABLES - DEVICE Final Result Performing Organization Address City/[facility] Co de Phone Number [facility] [place] [address] * Potassium, whole blood (12/15/2023 11:54 PM CDT) Potassium, bld 4.8 3.3 - 4.9 mmol/L Blood 12/15/2023 11:5 4 PM CDT 12/16/2023 12:07 AM CDT Kevin Corrigan MD LAB BLOOD ORDERABLES F inal Result Performing Organization Address [facility] de Phone Number [facility] [place] [address] * (ABNORMAL) POCT glucose (12/15/2023 9:08 PM CDT) Pathologist [facility] Glucose, POC 223(H) 70 - 199 mg/dL Blood 12/15/2023 9:08 PM CDT 12/15/2023 9:08 PM CDT Kevin Corrigan MD LAB POCT ORDERABLES - DEVICE Final Result Performing Organization Address [facility] Phone Number [facility] [place] [address] * eGFR (12/15/2023 8:48 PM CDT) eGFR [...] ORDERABLES F inal Result Performing Organization Address [facility] Co de Phone Number [facility] [place] [address] * Phosphorus (12/15/2023 8:48 PM CDT) Phosphorus, pl 3.5 2.3 - 4.5 mg/dL Blood 12/15/2023 8:48 PM CDT 12/15/2023 9:05 PM CDT Result [facility] Kevin Corrigan MD LAB BLOOD ORDERABLES F inal Result Performing Organization Address [facility] de Phone Number [facility] [place] [address] * Magnesium (12/15/2023 8:48 PM CDT) Magnesium 2.0 1.4 - 2.5 mg/dL Blood 12/15/2023 8:48 PM CDT 12/15/2023 9:05 PM CDT Kevin Corrigan MD LAB BLOOD ORDERABLES F inal Result Performing Organization Address City/[facility]/ZIP Co de Phone Number [facility] [place] [address] * (ABNORMAL) Basic metabolic panel (12/15/2023 8:48 PM CDT) Pathologist [facility] Sodium 129(L) 135 - 145 mmol/L Potassium, pl 5.3(H) 3.3 - 4.9 mmol/L [facility] Chloride 95(L) 97 - 110 mmol/L [facility] CO2 27 22 - 32 mmol/L [facility] Anion gap 7 2 - 15 mmol/L [facility] BUN 26(H) 6 - 25 mg/dL [facility] Creatinine 0.62 0.60 - 1.10 mg/dL [facility] Glucose 214(H) 70 - 199 mg/dL [facility] Comment: Interpretive Data Fasting glucose >/= [...] 2022. Calcium 9.1 8.5 - 10.3 mg/dL [facility] Blood 12/15/2023 8:48 PM CDT 12/15/2023 9:05 PM CDT us Kevin Corrigan MD LAB BLOOD ORDERABLES F inal Result MINDI SMART [facility] Department [place] [address] * (ABNORMAL) CBC without differential (12/15/2023 8:48 PM CDT) [facility] WBC 7.8 3.8 - 9.9 K/cumm Hgb 7.7(L) 11.9 - 15.5 g/dL [facility] Hct 24.0(L) 35.6 - 45.5 % [facility] Plt 220 150 - 400 K/cumm [facility] MPV 9.6 9.1 - 12.3 fL [facility] RBC 2.51(L) 3.90 - 5.20 M/cumm [facility] MCV 95.6 81.3 - 96.4 fL [facility] MCH 30.7 27.1 - 33.3 pg [facility] MCHC 32.1(L) 32.3 - 35.7 g/dL [facility] RDW CV 15.4(H) 11.1 - 14.9 % [facility] RDW SD 51.8(H) 35.7 - 48.1 fL [facility] NRBC abs 0.08(H) 0.00 - 0.01 K/cumm [facility] Blood 12/15/2023 8:48 PM CDT 12/15/2023 9:05 PM CDT Kevin Corrigan MD LAB BLOOD ORDERABLES F inal Result Performing Organization Address City/[facility]/ZIP Co de Phone Number [facility] [place] [address] * POCT glucose (12/15/2023 5:43 PM CDT) Glucose, POC 196 70 - 199 mg/dL Blood 12/15/2023 5:43 PM CDT 12/15/2023 5:43 PM CDT Kevin Corrigan MD LAB POCT ORDERABLES - DEVICE Final Result [facility] [place] [address] * (ABNORMAL) POCT glucose (12/15/2023 11:37 AM CDT) Glucose, POC 240(H) 70 - 199 mg/dL Blood 12/15/2023 11:3 7 AM CDT 12/15/2023 11:37 AM CDT Kevin Corrigan MD LAB POCT ORDERABLES - DEVICE Final Result Performing Organization Address [facility] de Phone Number [facility] [place] [address] * POCT glucose (12/15/2023 7:47 AM CDT) [facility] Glucose, POC 183 70 - 199 mg/dL Blood 12/15/2023 7:47 AM CDT 12/15/2023 7:47 AM CDT Kevin Corrigan MD LAB POCT ORDERABLES - DEVICE Final Result Performing Organization Address [facility] de Phone Number [facility] [place] [address] * (ABNORMAL) Potassium, whole blood (12/15/2023 12:25 AM CDT) [facility] Potassium, bld 5.0(H) 3.3 - 4.9 mmol/L Blood 12/15/2023 12:2 5 AM CDT 12/15/2023 12:35 AM CDT Kevin Corrigan MD LAB BLOOD ORDERABLES F inal Result Performing Organization Address [facility] de Phone Number [facility] [place] [address] * eGFR (12/14/2023 9:51 PM CDT) [facility] eGFR >90 >=60 mL/min/1. 73 m2 Comment: [...] ORDERABLES F inal Result Performing Organization Address City/[facility] Co de Phone Number MINDI [facility] [place] [address] * (ABNORMAL) POCT glucose (12/14/2023 9:51 PM CDT) Glucose, POC 200(H) 70 - 199 mg/dL Blood 12/14/2023 9:51 PM CDT 12/14/2023 9:51 PM CDT Kevin Corrigan MD LAB POCT ORDERABLES - DEVICE Final Result Performing Organization Address [facility] Co de Phone Number [facility] Department [place] [address] * Phosphorus (12/14/2023 9:51 PM CDT) [facility] Phosphorus, pl 2.4 2.3 - 4.5 mg/dL Blood 12/14/2023 9:51 PM CDT 12/14/2023 10:27 PM CDT Kevin Corrigan MD LAB BLOOD ORDERABLES F inal Result [facility] [place] [address] * Magnesium (12/14/2023 9:51 PM CDT) [facility] Magnesium 2.1 1.4 - 2.5 mg/dL Blood 12/14/2023 9:51 PM CDT 12/14/2023 10:27 PM CDT Kevin Corrigan MD LAB BLOOD ORDERABLES F inal Result Performing Organization Address City/[facility] [place] [address] * (ABNORMAL) Basic metabolic panel (12/14/2023 9:51 PM CDT) [facility] Sodium 128(L) 135 - 145 mmol/L Potassium, pl 5.3(H) 3.3 - 4.9 mmol/L [facility] Chloride 97 97 - 110 mmol/L [facility] CO2 28 22 - 32 mmol/L [facility] Anion gap 3 2 - 15 mmol/L [facility] BUN 21 6 - 25 mg/dL [facility] Creatinine 0.53(L) 0.60 - 1.10 mg/dL [facility] Glucose 180 70 - 199 mg/dL [facility] Comment: Interpretive Data Fasting glucose >/= [...] 2022. Calcium 8.9 8.5 - 10.3 mg/dL [facility] Blood 12/14/2023 9:51 PM CDT 12/14/2023 10:27 PM CDT us Kevin Corrigan MD LAB BLOOD ORDERABLES F inal Result [facility] [place] [address] * (ABNORMAL) CBC without differential (12/14/2023 9:51 PM CDT) [facility] WBC 7.3 3.8 - 9.9 K/cumm Hgb 8.3(L) 11.9 - 15.5 g/dL [facility] Hct 24.9(L) 35.6 - 45.5 % [facility] Plt 177 150 - 400 K/cumm [facility] MPV 9.6 9.1 - 12.3 fL [facility] RBC 2.63(L) 3.90 - 5.20 M/cumm [facility] MCV 94.7 81.3 - 96.4 fL [facility] MCH 31.6 27.1 - 33.3 pg [facility] MCHC 33.3 32.3 - 35.7 g/dL [facility] RDW CV 15.4(H) 11.1 - 14.9 % [facility] RDW SD 51.4(H) 35.7 - 48.1 fL [facility] NRBC abs 0.04(H) 0.00 - 0.01 K/cumm [facility] Blood 12/14/2023 9:51 PM CDT 12/14/2023 10:27 PM CDT Kevin Corrigan MD LAB BLOOD ORDERABLES F inal Result Performing Organization Address [facility] Co de Phone Number [facility] [place] [address] * POCT glucose (12/14/2023 5:25 PM CDT) Glucose, POC 173 70 - 199 mg/dL Blood 12/14/2023 5:25 PM CDT 12/14/2023 5:25 PM CDT Kevin Corrigan MD LAB POCT ORDERABLES - DEVICE Final Result Performing Organization Address [facility] de Phone Number [facility] [place] [address] * (ABNORMAL) POCT glucose (12/14/2023 11:51 AM CDT) Glucose, POC 267(H) 70 - 199 mg/dL Blood 12/14/2023 11:5 1 AM CDT 12/14/2023 11:51 AM CDT Kevin Corrigan MD LAB POCT ORDERABLES - DEVICE Final Result Performing Organization Address [facility] de Phone Number [facility] [place] [address] * (ABNORMAL) POCT glucose (12/14/2023 8:16 AM CDT) Glucose, POC 200(H) 70 - 199 mg/dL Blood 12/14/2023 8:16 AM CDT 12/14/2023 8:16 AM CDT Kevin Corrigan MD LAB POCT ORDERABLES - DEVICE Final Result [facility] [place] [address] * (ABNORMAL) CBC without differential (12/14/2023 3:20 AM CDT) WBC 7.5 3.8 - 9.9 K/cumm Hgb 8.1(L) 11.9 - 15.5 g/dL [facility] Hct 24.8(L) 35.6 - 45.5 % [facility] Plt 170 150 - 400 K/cumm [facility] MPV 10.1 9.1 - 12.3 fL [facility] RBC 2.63(L) 3.90 - 5.20 M/cumm [facility] MCV 94.3 81.3 - 96.4 fL [facility] MCH 30.8 27.1 - 33.3 pg [facility] MCHC 32.7 32.3 - 35.7 g/dL [facility] RDW CV 15.0(H) 11.1 - 14.9 % [facility] RDW SD 50.9(H) 35.7 - 48.1 fL [facility] NRBC abs 0.02(H) 0.00 - 0.01 K/cumm [facility] Blood 12/14/2023 3:20 AM CDT 12/14/2023 4:09 AM CDT Narrative [facility] - 12/14/2023 4:16 AM CDT 1 hour after transfusion of red blood cells is complete us Kevin Corrigan MD LAB BLOOD ORDERABLES F inal Result Performing Organization Address City/[facility]/ZIP Co de Phone Number [facility] Department [place] [address] * POCT glucose (12/14/2023 3:12 AM CDT) Glucose, POC 170 70 - 199 mg/dL Blood 12/14/2023 3:12 AM CDT 12/14/2023 3:12 AM CDT Kevin Corrigan MD LAB POCT ORDERABLES - DEVICE Final Result Performing Organization Address [facility] de Phone Number [facility] Department [place] [address] * Transfuse RBC (12/14/2023 2:21 AM CDT) Blood Kevin Corrigan MD BLOOD TRANSFUSION ORDE RABLES Final Result Performing Organization Address [facility] de Phone Number [facility] Department [place] [address] * Transfuse RBC: 1 Units (12/14/2023 2:21 AM CDT) Blood Kevin Corrigan MD BLOOD TRANSFUSION ORDE RABLES Final Result * POCT glucose (12/13/2023 11:29 PM CDT) Glucose, POC 185 70 - 199 mg/dL Blood 12/13/2023 11:2 9 PM CDT 12/13/2023 11:29 PM CDT Kevin Corrigan MD LAB POCT ORDERABLES - DEVICE Final Result Performing Organization Address [facility] Co de Phone Number [facility] Department [place] [address] * (ABNORMAL) Potassium, whole blood (12/13/2023 10:32 PM CDT) Potassium, bld 5.1(H) 3.3 - 4.9 mmol/L Blood 12/13/2023 10:3 2 PM CDT 12/13/2023 10:45 PM CDT Kevin Corrigan MD LAB BLOOD ORDERABLES F inal Result [facility] Department [place] [address] * Prepare RBC: 1 Units (12/13/2023 9:45 PM CDT) Pathologist [facility] Product code [id number] Unit Number [id number] [facility] Product Blood Type OPOS [facility] Dispense Status PRESUMED TRANSFUSED [facility] Blood 12/13/2023 9:45 PM CDT 12/13/2023 9:45 PM CDT Narrative [facility] - 12/14/2023 11:10 AM CDT Are special requirements needed? (All products are leukoreduced and CMV- safe)- >No Date required:-20231213 LRRBC # of [id number] Reasons:-Hgb <7 g/dL} Kevin Corrigan MD BLOOD BANK PRODUCT ORD ERABLES Final Result Performing Organization Address [facility]/ZIP Co de Phone Number [facility] Department [place] [address] * eGFR (12/13/2023 9:00 PM CDT) Pathologist [facility] eGFR 89 >=60 mL/min/1. 73 m2 Comment: [...] 9:00 PM CDT 12/13/2023 9:22 PM CDT Result [facility] Kevin Corrigan MD LAB BLOOD ORDERABLES F inal Result Performing Organization Address City/[facility]/ZIP Co de Phone Number [facility] Department [place] [address] * (ABNORMAL) Phosphorus (12/13/2023 9:00 PM CDT) Phosphorus, pl 2.1(L) 2.3 - 4.5 mg/dL Blood 12/13/2023 9:00 PM CDT 12/13/2023 9:22 PM CDT Result [facility] Kevin Corrigan MD LAB BLOOD ORDERABLES F inal Result [facility] Department [place] [address] * Magnesium (12/13/2023 9:00 PM CDT) Magnesium 1.7 1.4 - 2.5 mg/dL Blood 12/13/2023 9:00 PM CDT 12/13/2023 9:22 PM CDT Kevin Corrigan MD LAB BLOOD ORDERABLES F inal Result Performing Organization Address City/[facility]/ZIP Co de Phone Number [facility] Department [place] [address] * (ABNORMAL) Basic metabolic panel (12/13/2023 9:00 PM CDT) Pathologist [facility] Sodium 131(L) 135 - 145 mmol/L Potassium, pl 5.3(H) 3.3 - 4.9 mmol/L [facility] Chloride 101 97 - 110 mmol/L [facility] CO2 26 22 - 32 mmol/L [facility] Anion gap 4 2 - 15 mmol/L [facility] BUN 28(H) 6 - 25 mg/dL [facility] Creatinine 0.61 0.60 - 1.10 mg/dL [facility] Glucose 184 70 - 199 mg/dL [facility] Comment: Interpretive Data Fasting glucose >/= [...] 2022. Calcium 8.5 8.5 - 10.3 mg/dL [facility] Blood 12/13/2023 9:00 PM CDT 12/13/2023 9:22 PM CDT Kevin Corrigan MD LAB BLOOD ORDERABLES F inal Result Performing Organization Address [facility]/ZIP Co de Phone Number [facility] Department [place] [address] * (ABNORMAL) CBC without differential (12/13/2023 9:00 PM CDT) [facility] WBC 7.4 3.8 - 9.9 K/cumm Hgb 7.0(L) 11.9 - 15.5 g/dL [facility] Hct 21.3(L) 35.6 - 45.5 % [facility] Plt 158 150 - 400 K/cumm [facility] MPV 9.9 9.1 - 12.3 fL [facility] RBC 2.23(L) 3.90 - 5.20 M/cumm [facility] MCV 95.5 81.3 - 96.4 fL [facility] MCH 31.4 27.1 - 33.3 pg [facility] MCHC 32.9 32.3 - 35.7 g/dL [facility] RDW CV 14.9 11.1 - 14.9 % [facility] RDW SD 51.1(H) 35.7 - 48.1 fL [facility] NRBC abs 0.02(H) 0.00 - 0.01 K/cumm [facility] Blood 12/13/2023 9:00 PM CDT 12/13/2023 9:22 PM CDT Kevin Corrigan MD LAB BLOOD ORDERABLES F inal Result Performing Organization Address City/[facility]/ZIP Co de Phone Number [facility] [place] [address] * POCT glucose (12/13/2023 8:16 PM CDT) Glucose, POC 183 70 - 199 mg/dL Blood 12/13/2023 8:16 PM CDT 12/13/2023 8:16 PM CDT Kevin Corrigan MD LAB POCT ORDERABLES - DEVICE Final Result Performing Organization Address City/[facility]/ZIP Co de Phone Number [facility] [place] [address] * POCT glucose (12/13/2023 4:15 PM CDT) Glucose, POC 192 70 - 199 mg/dL Blood 12/13/2023 4:15 PM CDT 12/13/2023 4:15 PM CDT us Kevin Corrigan MD LAB POCT ORDERABLES - DEVICE Final Result MINDI [facility] Department [place] [address] * eGFR (12/13/2023 1:33 PM CDT) eGFR [...] 1:33 PM CDT 12/13/2023 1:49 PM CDT us Parris Aura Brittany [employer]ING [employer] DIRECTOR LAB BLOOD ORDERABLES Final Result [facility] Department [place] [address] * Differential, auto (12/13/2023 1:33 PM CDT) Neutrophil abs 5.1 1.5 - 6.5 K/cumm Imm gran abs 0.1 0.0 - 0.1 K/cumm [facility] Lymphocyte abs 1.3 0.8 - 3.3 K/cumm [facility] Monocyte abs 0.6 0.2 - 0.8 K/cumm [facility] Eosinophil abs 0.0 0.0 - 0.5 K/cumm [facility] Basophil abs 0.0 0.0 - 0.1 K/cumm [facility] Neutrophil pct 71.9 % [facility] Comment: Interpretive Data Percent cell count reference ranges are not reported, since discordance with absolute values may lead to misinterpretation of CBC data. Current Interpretive Data was last revised on 2017. Imm gran pct 0.7 % [facility] Comment: Interpretive Data Percent cell count reference ranges are not reported, since discordance with absolute values may lead to misinterpretation of CBC data. Current Interpretive Data was last revised on 2017. Lymphocyte pct 19.0 % [facility] Comment: Interpretive Data Percent cell count reference ranges are not reported, since discordance with absolute values may lead to misinterpretation of CBC data. Current Interpretive Data was last revised on 2017. Monocyte pct 7.8 % [facility] Comment: Interpretive Data Percent cell count reference ranges are not reported, since discordance with absolute values may lead to misinterpretation of CBC data. Current Interpretive Data was last revised on 2017. Eosinophil pct 0.3 % [facility] Comment: Interpretive Data Percent cell count reference ranges are not reported, since discordance with absolute values may lead to misinterpretation of CBC data. Current Interpretive Data was last revised on 2017. Basophil pct 0.3 % [facility] Comment: Interpretive Data Percent cell count reference ranges are not reported, since discordance with absolute values may lead to misinterpretation of CBC data. Current Interpretive Data was last revised on 2017. Blood 12/13/2023 1:33 PM CDT 12/13/2023 1:49 PM CDT Parris Soto NP LAB BLOOD ORDERABLES Final Result Performing Organization Address City/[facility]/ZIP Co de Phone Number [facility] Department [place] [address] * (ABNORMAL) Basic metabolic panel (12/13/2023 1:33 PM CDT) Sodium 132(L) 135 - 145 mmol/L Potassium, pl 5.0(H) 3.3 - 4.9 mmol/L [facility] Chloride 97 97 - 110 mmol/L [facility] CO2 26 22 - 32 mmol/L [facility] Anion gap 9 2 - 15 mmol/L [facility] BUN 31(H) 6 - 25 mg/dL [facility] Creatinine 0.63 0.60 - 1.10 mg/dL [facility] Glucose 207(H) 70 - 199 mg/dL [facility] Comment: Interpretive Data Fasting glucose >/= [...] 2022. Calcium 8.6 8.5 - 10.3 mg/dL [facility] Blood 12/13/2023 1:33 PM CDT 12/13/2023 1:49 PM CDT Parris Soto NP LAB BLOOD ORDERABLES Final Result Performing Organization Address [facility] Co de Phone Number [facility] Department [place] [address] * (ABNORMAL) CBC with auto differential (12/13/2023 1:33 PM CDT) [facility] WBC 7.1 3.8 - 9.9 K/cumm Hgb 7.1(L) 11.9 - 15.5 g/dL [facility] Hct 21.9(L) 35.6 - 45.5 % [facility] Plt 166 150 - 400 K/cumm [facility] MPV 9.8 9.1 - 12.3 fL [facility] RBC 2.26(L) 3.90 - 5.20 M/cumm [facility] MCV 96.9(H) 81.3 - 96.4 fL [facility] MCH 31.4 27.1 - 33.3 pg [facility] MCHC 32.4 32.3 - 35.7 g/dL [facility] RDW CV 14.9 11.1 - 14.9 % [facility] RDW SD 52.4(H) 35.7 - 48.1 fL [facility] NRBC abs 0.02(H) 0.00 - 0.01 K/cumm [facility] Blood 12/13/2023 1:33 PM CDT 12/13/2023 1:49 PM CDT us Parris Soto NP LAB BLOOD ORDERABLES Final Result [facility] Department [place] [address] * (ABNORMAL) POCT glucose (12/13/2023 12:14 PM CDT) [facility] Glucose, POC 212(H) 70 - 199 mg/dL Blood 12/13/2023 12:1 4 PM CDT 12/13/2023 12:14 PM CDT us Kevin Corrigan MD LAB POCT ORDERABLES - DEVICE Final Result [facility] [place] [address] * Transfuse RBC (12/13/2023 9:49 AM CDT) Blood Kevin Corrigan MD BLOOD TRANSFUSION ORDE RABLES Final Result Performing Organization Address [facility] Co de Phone Number [facility] [place] [address] * Transfuse RBC: 1 Units (12/13/2023 9:49 AM CDT) Blood Kevin Corrigan MD BLOOD TRANSFUSION ORDE RABLES Final Result * POCT glucose (12/13/2023 8:25 AM CDT) Pathologist [facility] Glucose, POC 175 70 - 199 mg/dL Blood 12/13/2023 8:25 AM CDT 12/13/2023 8:25 AM CDT Kevin Corrigan MD LAB POCT ORDERABLES - DEVICE Final Result Performing Organization Address [facility] de Phone Number [facility] [place] [address] * ECG 12 lead (12/13/2023 5:50 AM CDT) Ventricular Rate EKG/Min 119 BPM [facility] Atrial Rate 44 BPM [facility] QRS-Interval (MSEC) 88 ms [facility] QT-Interval (MSEC) 318 ms [facility] QTc 447 ms [facility] R [place] 29 degrees [facility] T [place] -29 degrees [facility] Diagnosis Atrial fibrillation with rapid ventricular response Cannot rule out Inferior infarct , age undetermined Abnormal ECG When compared with ECG of 12-DEC-2023 05:53, ST elevation now present in Inferior leads Confirmed by GREGORY CLINE M.D ([id number]) on 12/14/2023 12:31:24 PM [facility] 12/13/2023 5:50 AM CDT 12/14/2023 12:31 PM CDT Kevin Corrigan MD ECG ORDERABLES Final Result Performing Organization Address [facility] Co de Phone Number [facility] * (ABNORMAL) Potassium, whole blood (12/13/2023 5:50 AM CDT) Potassium, bld 5.0(H) 3.3 - 4.9 mmol/L Blood 12/13/2023 5:50 AM CDT 12/13/2023 5:56 AM CDT Alia Ibarra MD LAB BLOOD ORDERABLES Final Resul t Performing Organization Address [facility] de Phone Number [facility] Department [place] [address] * Type and screen (12/13/2023 4:58 AM CDT) ABO Rh O Positive Gian, indirect Negative [facility] Blood 12/13/2023 4:58 AM CDT 12/13/2023 5:12 AM CDT Narrative [facility] - 12/13/2023 6:03 AM CDT Has the patient had Daratumumab or Isatuximab in the past 6 months?->Unknown Kevin Corrigan MD LAB BLOOD BANK TEST OR DERABLES Final Result Performing Organization Address [facility] Co de Phone Number [facility] Department [place] [address] * POCT glucose (12/13/2023 4:55 AM CDT) Glucose, POC 194 70 - 199 mg/dL Blood 12/13/2023 4:55 AM CDT 12/13/2023 4:55 AM CDT us Kevin Corrigan MD LAB POCT ORDERABLES - DEVICE Final Result Performing Organization Address [facility] Co de Phone Number [facility] Department [place] [address] * Prepare RBC: 1 Units (12/13/2023 4:19 AM CDT) [facility] Product code [id number] Unit Number [id number] [facility] Product Blood Type OPOS [facility] Dispense Status PRESUMED TRANSFUSED [facility] Blood 12/13/2023 4:19 AM CDT 12/13/2023 4:21 AM CDT Narrative [facility] - 12/14/2023 11:27 AM CDT Are special requirements needed? (All products are leukoreduced and CMV- safe)- >No Date required:-20231213 LRRBC # of [id number] Reasons:-Hgb <7 g/dL} us Kevin Corrigan MD BLOOD BANK PRODUCT ORD ERABLES Final Result Performing Organization Address [facility] Co de Phone Number [facility] Department [place] [address] * eGFR (12/13/2023 3:08 AM CDT) Pathologist [facility] eGFR 89 >=60 mL/min/1. 73 m2 Comment: [...] ORDERABLES Final Resul t Performing Organization Address City/[facility] Co de Phone Number [facility] Department [place] [address] * (ABNORMAL) Phosphorus (12/13/2023 3:08 AM CDT) Phosphorus, pl 1.5(L) 2.3 - 4.5 mg/dL Blood 12/13/2023 3:08 AM CDT 12/13/2023 3:29 AM CDT us Alia Ibarra MD LAB BLOOD ORDERABLES Final Resul t Performing Organization Address City/State/[facility] Co de Phone Number [facility] Department [place] [address] * Magnesium (12/13/2023 3:08 AM CDT) Magnesium 1.8 1.4 - 2.5 mg/dL Blood 12/13/2023 3:08 AM CDT 12/13/2023 3:29 AM CDT us Alia Ibarra MD LAB BLOOD ORDERABLES Final Resul t Performing Organization Address [facility] Co de Phone Number [facility] Department [place] [address] * (ABNORMAL) CBC without differential (12/13/2023 3:08 AM CDT) WBC 7.2 3.8 - 9.9 K/cumm Hgb 6.2(C) 11.9 - 15.5 g/dL [facility] Comment:Consistent with prev ious results Hct 19.4(L) 35.6 - 45.5 % [facility] Plt 168 150 - 400 K/cumm [facility] MPV 10.6 9.1 - 12.3 fL [facility] RBC 2.00(L) 3.90 - 5.20 M/cumm [facility] MCV 97.0(H) 81.3 - 96.4 fL [facility] MCH 31.0 27.1 - 33.3 pg [facility] MCHC 32.0(L) 32.3 - 35.7 g/dL [facility] RDW CV 14.8 11.1 - 14.9 % [facility] RDW SD 51.5(H) 35.7 - 48.1 fL [facility] NRBC abs 0.00 0.00 - 0.01 K/cumm [facility] Blood 12/13/2023 3:08 AM CDT 12/13/2023 3:30 AM CDT us Alia Ibarra MD LAB BLOOD ORDERABLES Final Resul t Performing Organization Address [facility]/ZIP Co de Phone Number [facility] Department [place] [address] * (ABNORMAL) Basic metabolic panel (12/13/2023 3:08 AM CDT) Sodium 136 135 - 145 mmol/L Potassium, pl 5.4(H) 3.3 - 4.9 mmol/L [facility] Chloride 102 97 - 110 mmol/L [facility] CO2 28 22 - 32 mmol/L [facility] Anion gap 6 2 - 15 mmol/L [facility] BUN 28(H) 6 - 25 mg/dL [facility] Creatinine 0.63 0.60 - 1.10 mg/dL [facility] Glucose 168 70 - 199 mg/dL [facility] Comment: Interpretive Data Fasting glucose >/= [...] 2022. Calcium 8.7 8.5 - 10.3 mg/dL [facility] Blood 12/13/2023 3:08 AM CDT 12/13/2023 3:29 AM CDT us Alia Ibarra MD LAB BLOOD ORDERABLES Final Resul t [facility] Department [place] [address] * eGFR (12/13/2023 2:11 AM CDT) eGFR [...] ORDERABLES F inal Result Performing Organization Address City/[facility] Co de Phone Number [facility] [place] [address] * (ABNORMAL) Phosphorus (12/13/2023 2:11 AM CDT) Phosphorus, pl 1.6(L) 2.3 - 4.5 mg/dL Blood 12/13/2023 2:11 AM CDT 12/13/2023 2:25 AM CDT Kevin Corrigan MD LAB BLOOD ORDERABLES F inal Result Performing Organization Address City/[facility] Co de Phone Number [facility] [place] [address] * Magnesium (12/13/2023 2:11 AM CDT) Magnesium 2.0 1.4 - 2.5 mg/dL Blood 12/13/2023 2:11 AM CDT 12/13/2023 2:25 AM CDT Kevin Corrigan MD LAB BLOOD ORDERABLES F inal Result Performing Organization Address City/[facility]/ZIP Co de Phone Number [facility] Department [place] [address] * (ABNORMAL) Basic metabolic panel (12/13/2023 2:11 AM CDT) Sodium 133(L) 135 - 145 mmol/L Potassium, pl 5.3(H) 3.3 - 4.9 mmol/L [facility] Chloride 102 97 - 110 mmol/L [facility] CO2 29 22 - 32 mmol/L [facility] Anion gap 2 2 - 15 mmol/L [facility] BUN 29(H) 6 - 25 mg/dL [facility] Creatinine 0.63 0.60 - 1.10 mg/dL [facility] Glucose 166 70 - 199 mg/dL [facility] Comment: Interpretive Data Fasting glucose >/= [...] 2022. Calcium 8.7 8.5 - 10.3 mg/dL [facility] Blood 12/13/2023 2:11 AM CDT 12/13/2023 2:25 AM CDT Kevin Corrigan MD LAB BLOOD ORDERABLES F inal Result Performing Organization Address [facility]/ZIP Co de Phone Number [facility] Department [place] [address] * CBC without differential (12/13/2023 2:11 AM CDT) WBC See Comment 3.8 - 9.9 Comment: Credited, collection error. Likely diluted specimen. Telephone report made to: Ren Petersen RN on 12/13/2023 02:46:51 CDT by PRAKASH . Hgb See Comment 11.9 - 15.5 [facility] Comment: Critical result called to and read back by REN PETERSEN RN on 12 13 2023 at 0242 to Yovanny Savage. Credited, collection error. Likely diluted specimen. Telephone report made to: Ren Petersen RN on 12/13/2023 02:46:51 CDT by . Hct See Comment 35.6 - 45.5 [facility] Comment: Credited, collection error. Likely diluted specimen. Telephone report made to: Ren Petersen RN on 12/13/2023 02:46:51 CDT by PRAKASH . Plt See Comment 150 - 400 [facility] Comment: Credited, collection error. Likely diluted specimen. Telephone report made to: Ren Petersen RN on 12/13/2023 02:46:51 CDT by PRAKASH . MPV See Comment 9.1 - 12.3 [facility] Comment: Credited, collection error. Likely diluted specimen. Telephone report made to: Ren Petersen RN on 12/13/2023 02:46:51 CDT by . RBC See Comment 3.90 - 5.20 [facility] Comment: Credited, collection error. Likely diluted specimen. Telephone report made to: Ren Petersen RN on 12/13/2023 02:46:51 CDT by PRAKASH . MCV See Comment 81.3 - 96.4 [facility] Comment: Credited, collection error. Likely diluted specimen. [...] RDW CV See Comment 11.1 - 14.9 [facility] Comment: Credited, collection error. Likely diluted specimen. Telephone report made to: Ren Petersen RN on 12/13/2023 02:46:51 CDT by PRAKASH . RDW SD See Comment 35.7 - 48.1 [facility] Comment: Credited, collection error. Likely diluted specimen. Telephone report made to: Ren Petersen RN on 12/13/2023 02:46:51 CDT by PRAKASH . NRBC abs See Comment 0.00 - 0.01 K/cumm [facility] Comment: Credited, collection error. Likely diluted specimen. Telephone report made to: Ren Petersen RN on 12/13/2023 02:46:51 CDT by . Blood 12/13/2023 2:11 AM CDT 12/13/2023 2:25 AM CDT Kevin Corrigan MD LAB BLOOD ORDERABLES E dited Result - Final Performing Organization Address City/[facility]/ZIP Co de Phone Number [facility] Department [place] [address] * (ABNORMAL) POCT glucose (12/12/2023 10:56 PM CDT) Glucose, POC 204(H) 70 - 199 mg/dL Blood 12/12/2023 10:5 6 PM CDT 12/12/2023 10:56 PM CDT Kevin Corrigan MD LAB POCT ORDERABLES - DEVICE Final Result [facility] Department [place] [address] * (ABNORMAL) POCT glucose (12/12/2023 7:51 PM CDT) Glucose, POC 225(H) 70 - 199 mg/dL Blood 12/12/2023 7:51 PM CDT 12/12/2023 7:51 PM CDT Kevin Corrigan MD LAB POCT ORDERABLES - DEVICE Final Result Performing Organization Address [facility] Co de Phone Number [facility] [place] [address] * (ABNORMAL) POCT glucose (12/12/2023 4:42 PM CDT) [facility] Glucose, POC 263(H) 70 - 199 mg/dL Blood 12/12/2023 4:42 PM CDT 12/12/2023 4:42 PM CDT Kevin Corrigan MD LAB POCT ORDERABLES - DEVICE Final Result Performing Organization Address [facility] Co de Phone Number [facility] [place] [address] * Potassium (12/12/2023 2:30 PM CDT) [facility] Potassium, pl 4.9 3.3 - 4.9 mmol/L Blood 12/12/2023 2:30 PM CDT 12/12/2023 2:50 PM CDT Narrative [facility] - 12/12/2023 3:12 PM CDT Provider to discontinue after two normal results. Parris Soto NP LAB BLOOD ORDERABLES Final Result Performing Organization Address [facility] Co de Phone Number [facility] [place] [address] * (ABNORMAL) POCT glucose (12/12/2023 12:22 PM CDT) [facility] Glucose, POC 212(H) 70 - 199 mg/dL Blood 12/12/2023 12:2 2 PM CDT 12/12/2023 12:22 PM CDT Kevin Corrigan MD LAB POCT ORDERABLES - DEVICE Final Result Performing Organization Address [facility] de Phone Number [facility] [place] [address] * Potassium, whole blood (12/12/2023 10:50 AM CDT) Potassium, bld 4.7 3.3 - 4.9 mmol/L Blood 12/12/2023 10:5 0 AM CDT 12/12/2023 10:57 AM CDT Parris Soto NP LAB BLOOD ORDERABLES Final Result Performing Organization Address [facility] de Phone Number [facility] [place] [address] * Sodium, urine, random (12/12/2023 10:50 AM CDT) Sodium, ur 32 mmol/L Comment: Interpretive Data No reference range established. Current interpretive data was last revised 2018. Urine (Urine, Clean Catch) 12/12/2023 10:50 AM CDT 12/12/2023 10:57 AM CDT Parris Soto NP LAB URINE ORDERABLES Final Result Performing Organization Address [facility] de Phone Number [facility] [place] [address] * Potassium, urine, random (12/12/2023 10:50 AM CDT) Potassium conc, ur 37.5 mmol/L Comment: Interpretive Data No reference range established. Current interpretive data was last revised 2018. Urine (Urine, Clean Catch) 12/12/2023 10:50 AM CDT 12/12/2023 10:57 AM CDT us Parris Soto NP LAB URINE ORDERABLES Final Result Performing Organization Address [facility] Co de Phone Number [facility] [place] [address] * Chloride, urine, random (12/12/2023 10:50 AM CDT) Chloride, ur 39 mmol/L Comment: Interpretive Data No reference range established. Current interpretive data was last revised 2018. Urine (Urine, Clean Catch) 12/12/2023 10:50 AM CDT 12/12/2023 10:57 AM CDT us Parris Soto NP LAB URINE ORDERABLES Final Result Performing Organization Address [facility] Co de Phone Number [facility] [place] [address] * (ABNORMAL) POCT glucose (12/12/2023 10:36 AM CDT) Glucose, POC 261(H) 70 - 199 mg/dL Blood 12/12/2023 10:3 6 AM CDT 12/12/2023 10:36 AM CDT Kevin Corrigan MD LAB POCT ORDERABLES - DEVICE Final Result Performing Organization Address [facility] Co de Phone Number [facility] [place] [address] * (ABNORMAL) POCT glucose (12/12/2023 9:26 AM CDT) Glucose, POC 273(H) 70 - 199 mg/dL Blood 12/12/2023 9:26 AM CDT 12/12/2023 9:26 AM CDT Kevin Corrigan MD LAB POCT ORDERABLES - DEVICE Final Result Performing Organization Address City/[facility] Co de Phone Number [facility] [place] [address] * (ABNORMAL) POCT glucose (12/12/2023 9:25 AM CDT) Glucose, POC 318(H) 70 - 199 mg/dL Blood 12/12/2023 9:25 AM CDT 12/12/2023 9:25 AM CDT Kevin Corrigan MD LAB POCT ORDERABLES - DEVICE Final Result Performing Organization Address [facility] Co de Phone Number [facility] Department [place] [address] * POCT glucose (12/12/2023 7:41 AM CDT) Glucose, POC 175 70 - 199 mg/dL Blood 12/12/2023 7:41 AM CDT 12/12/2023 7:41 AM CDT Kevin Corrigan MD LAB POCT ORDERABLES - DEVICE Final Result Performing Organization Address City/[facility] Co de Phone Number [facility] [place] [address] * (ABNORMAL) Potassium (12/12/2023 7:27 AM CDT) Potassium, pl 5.1(H) 3.3 - 4.9 mmol/L Blood 12/12/2023 7:27 AM CDT 12/12/2023 7:36 AM CDT Narrative [facility] 12/12/2023 7:54 AM CDT Provider to discontinue after two normal results. us Parris Soto NP LAB BLOOD ORDERABLES Final Result [facility] Department [place] [address] * ECG 12 lead (12/12/2023 5:53 AM CDT) Pathologist [facility] Ventricular Rate EKG/Min 109 BPM [facility] Atrial Rate 250 BPM [facility] QRS-Interval (MSEC) 98 ms [facility] QT-Interval (MSEC) 326 ms [facility] QTc 439 ms [facility] R [place] 48 degrees [facility] T [place] -10 degrees [facility] Diagnosis Atrial fibrillation with rapid ventricular response Abnormal ECG When compared with ECG of 09-DEC-2023 00:15, Incomplete right bundle branch block is no longer Present Criteria for Inferior infarct are no longer Present Confirmed by GREGORY CLINE M.D ([id number]) on 12/12/2023 5:25:07 PM [facility] 12/12/2023 5:53 AM CDT 12/12/2023 5:25 PM CDT us Parris Soto RISK CONSULTING TREASURY DIRECTOR ECG ORDERABLES Final Resu lt Performing Organization Address City/[facility]/ZIP Co de Phone Number [facility] * eGFR (12/12/2023 4:06 AM CDT) Pathologist [facility] eGFR >90 >=60 mL/min/1. 73 m2 Comment: [...] 4:06 AM CDT 12/12/2023 4:26 AM CDT Kevin Corrigan MD LAB BLOOD ORDERABLES F inal Result [facility] Department [place] [address] * (ABNORMAL) Basic metabolic panel (12/12/2023 4:06 AM CDT) Sodium 136 135 - 145 mmol/L Potassium, pl 5.8(H) 3.3 - 4.9 mmol/L [facility] Comment:Hemolyzed; Potassium value may be falsely elevated by as much as 0.6-1.0 mmol/L. Suggest redraw and reanalysis. Chloride 105 97 - 110 mmol/L [facility] CO2 27 22 - 32 mmol/L [facility] Anion gap 4 2 - 15 mmol/L [facility] BUN 29(H) 6 - 25 mg/dL [facility] Creatinine 0.54(L) 0.60 - 1.10 mg/dL [facility] Glucose 181 70 - 199 mg/dL [facility] Comment: Interpretive Data Fasting glucose >/= [...] 2022. Calcium 8.5 8.5 - 10.3 mg/dL [facility] Blood 12/12/2023 4:06 AM CDT 12/12/2023 4:26 AM CDT Kevin Corrigan MD LAB BLOOD ORDERABLES F inal Result Performing Organization Address City/[facility] Co de Phone Number [facility] [place] [address] * (ABNORMAL) POCT glucose (12/12/2023 4:01 AM CDT) Glucose, POC 206(H) 70 - 199 mg/dL Blood 12/12/2023 4:01 AM CDT 12/12/2023 4:01 AM CDT Result [facility] Kevin Corrigan MD LAB POCT ORDERABLES - DEVICE Final Result Performing Organization Address [facility] Co de Phone Number [facility] [place] [address] * POCT glucose (12/11/2023 11:47 PM CDT) Glucose, POC 193 70 - 199 mg/dL Blood 12/11/2023 11:4 7 PM CDT 12/11/2023 11:47 PM CDT Kevin Corrigan MD LAB POCT ORDERABLES - DEVICE Final Result Performing Organization Address [facility] Co de Phone Number [facility] [place] [address] * eGFR (12/11/2023 9:47 PM CDT) eGFR [...] 9:47 PM CDT 12/11/2023 10:15 PM CDT us Kevin Corrigan MD LAB BLOOD ORDERABLES F inal Result [facility] [place] [address] * (ABNORMAL) Phosphorus (12/11/2023 9:47 PM CDT) Phosphorus, pl 1.4(L) 2.3 - 4.5 mg/dL Blood 12/11/2023 9:47 PM CDT 12/11/2023 10:15 PM CDT Kevin Corrigan MD LAB BLOOD ORDERABLES F inal Result [facility] [place] [address] * Magnesium (12/11/2023 9:47 PM CDT) [facility] Magnesium 1.9 1.4 - 2.5 mg/dL Blood 12/11/2023 9:47 PM CDT 12/11/2023 10:15 PM CDT Kevin Corrigan MD LAB BLOOD ORDERABLES F inal Result Performing Organization Address [facility] de Phone Number [facility] Department [place] [address] * (ABNORMAL) Basic metabolic panel (12/11/2023 9:47 PM CDT) [facility] Sodium 135 135 - 145 mmol/L Potassium, pl 5.4(H) 3.3 - 4.9 mmol/L [facility] Comment:Hemolyzed; Potassium value may be falsely elevated by as much as 0.6-1.0 mmol/L. Suggest redraw and reanalysis. Chloride 104 97 - 110 mmol/L [facility] CO2 26 22 - 32 mmol/L [facility] Anion gap 5 2 - 15 mmol/L [facility] BUN 27(H) 6 - 25 mg/dL [facility] Creatinine 0.55(L) 0.60 - 1.10 mg/dL [facility] Glucose 188 70 - 199 mg/dL [facility] Comment: Interpretive Data Fasting glucose >/= [...] 2022. Calcium 8.2(L) 8.5 - 10.3 mg/dL [facility] Blood 12/11/2023 9:47 PM CDT 12/11/2023 10:15 PM CDT us Kevin Corrigan MD LAB BLOOD ORDERABLES F inal Result [facility] [place] [address] * (ABNORMAL) CBC without differential (12/11/2023 9:47 PM CDT) Pathologist [facility] WBC 6.7 3.8 - 9.9 K/cumm Hgb 7.9(L) 11.9 - 15.5 g/dL [facility] Hct 24.2(L) 35.6 - 45.5 % [facility] Plt 183 150 - 400 K/cumm [facility] MPV 10.8 9.1 - 12.3 fL [facility] RBC 2.52(L) 3.90 - 5.20 M/cumm [facility] MCV 96.0 81.3 - 96.4 fL [facility] MCH 31.3 27.1 - 33.3 pg [facility] MCHC 32.6 32.3 - 35.7 g/dL [facility] RDW CV 15.5(H) 11.1 - 14.9 % [facility] RDW SD 54.4(H) 35.7 - 48.1 fL [facility] NRBC abs 0.00 0.00 - 0.01 K/cumm [facility] Blood 12/11/2023 9:47 PM CDT 12/11/2023 10:15 PM CDT Kevin Corrigan MD LAB BLOOD ORDERABLES F inal Result [facility] [place] [address] * POCT glucose (12/11/2023 8:51 PM CDT) Glucose, POC 164 70 - 199 mg/dL Blood 12/11/2023 8:51 PM CDT 12/11/2023 8:51 PM CDT Kevin Corrigan MD LAB POCT ORDERABLES - DEVICE Final Result Performing Organization Address [facility] Co de Phone Number [facility] [place] [address] * (ABNORMAL) POCT glucose (12/11/2023 5:02 PM CDT) Glucose, POC 212(H) 70 - 199 mg/dL Blood 12/11/2023 5:02 PM CDT 12/11/2023 5:02 PM CDT Kevin Corrigan MD LAB POCT ORDERABLES - DEVICE Final Result Performing Organization Address City/[facility]/ZIP Co de Phone Number [facility] [place] [address] * POCT glucose (12/11/2023 12:20 PM CDT) Glucose, POC 161 70 - 199 mg/dL Blood 12/11/2023 12:2 0 PM CDT 12/11/2023 12:20 PM CDT Kevin Corrigan MD LAB POCT ORDERABLES - DEVICE Final Result Performing Organization Address City/[facility]/ZIP Co de Phone Number [facility] [place] [address] * TRANSTHORACIC ECHO (TTE) COMPLETE W DOPPLER/CF W CONTRAST (12/11/2023 10:10 AM CDT) LV EF 61 % CARDIOREPORT Anatomical Region Laterality Modality Ultrasound 12/11/2023 9:00 AM CDT Narrative 12/11/2023 1:11 PM CDT Patient name: Prema Pearce Date of test: 12/11/2023 Type of test: TTE w/Doppler [facility] #: [id number] Date of : 1940 (F) Magazine Filler: Emile Gtz RDCS Referring Physician: KEVIN CORRIGAN MD Contrast Agent: 0.9 ml Optison Administered, (2.1 ml wasted). Contrast Administered by: Supervised/Interpreted by: Frank Horn MD Diagnosis: Location: [facility] Reason for test: Hypotension MV Structure: Normal, [...] 2=Hypo 3=Akinetic 4=Dyskin./Aneurysm 0=Not visualized) Parasternal Long [place]:MAS=1 BAS=1 MIL=1 NIGHAT=1 Parasternal Short [place]:MAS=1 MIS=1 RI=1 MIL=1 MAL=1 MA=1 Apical 4 Chambers:=1 MIS=1 BIS=1 BAL=1 MAL=1 AL=1 AC=1 Apical 2 Chambers:AI=1 RI=1 BI=1 BA=1 MA=1 AA=1 AC=1 LV Global Longitudinal Strain: RV Global Longitudinal Strain: LV Function: Normal LV Ejection Fraction, ??(EF=54-74%) RV Function: Normal Septal Motion: Normal Pericardial Effusion: none seen Atrial Septum: Normal DOPPLER/COLOR FLOW DOPPLER RESULTS: Diastolic Function: indeterminate Tricuspid Valve: mild TV regurgitation Pulmonic Valve: Mild FL AV Regurgitation: Trace AR AV Stenosis: moderate AV Area: 1.0 cm2 AV Pressure Gradient (mmHg): Mean: 17, Peak:29 MV Regurgitation: Mild MR MV Stenosis: mild MS MV Area: ??cm2 MV Pressure Gradient (mmHg): Mean: 4 MV ERO: ??cm Regurg. Vol.: ??ml/beat Regurg. Frac.: ??% PA Pressure: ??mmHg DOPPLER/COLOR FOLOW DOPPLER COMMENTS: Trace AR, Mild MR, moderate , mild MS, mild TV regurgitation, Mild FL. Diastolic function: indeterminate CONTRAST: 0.9 ml Optison [...] Hg, and mild MR. ??Mild TR and FL. Unable to assess PA pressure. ??No pericardial effusion. ??No vegetations seen. ??Compared with 07/27/23, no significant change. Confirmed on ??12/11/2023 - 13:11:51 by Frank Horn MD By signing this report, the attending colorist dyer certifies that he or she has personally supervised and interpreted the echocardiogram and has reviewed and or edited and agrees with the written comments contained within the report. Procedure Note Frank Horn MD - 12/11/2023 Patient name: Prema Pearce Date of test: 12/11/2023 Type of test: TTE w/Doppler [facility] #: 0 Date of : 1940 (F) Magazine Filler: Emile Gtz YSABEL Referring Physician: KEVIN CORRIGAN MD Contrast Agent: 0.9 ml Optison Administered, (2.1 ml wasted). Contrast Administered by: Supervised/Interpreted by: Frank Horn MD Diagnosis: Location: [facility] Reason for test: Hypotension MV Structure: Normal, [...] 2=Hypo 3=Akinetic 4=Dyskin./Aneurysm 0=Not visualized) Parasternal Long [place]:MAS=1 BAS=1 MIL=1 NIGHAT=1 Parasternal Short [place]:MAS=1 MIS=1 RI=1 MIL=1 MAL=1 MA=1 Apical 4 Chambers:=1 MIS=1 BIS=1 BAL=1 MAL=1 AL=1 AC=1 Apical 2 Chambers:AI=1 RI=1 BI=1 BA=1 MA=1 AA=1 AC=1 LV Global Longitudinal Strain: RV Global Longitudinal Strain: LV Function: Normal LV Ejection Fraction, (EF=54-74%) RV Function: Normal Septal Motion: Normal Pericardial Effusion: none seen Atrial Septum: Normal DOPPLER/COLOR FLOW DOPPLER RESULTS: Diastolic Function: indeterminate Tricuspid Valve: mild TV regurgitation Pulmonic Valve: Mild FL AV Regurgitation: Trace AR AV Stenosis: moderate AV Area: 1.0 cm2 AV Pressure Gradient (mmHg): Mean: 17, Peak:29 MV Regurgitation: Mild MR MV Stenosis: mild MS MV Area: cm2 MV Pressure Gradient (mmHg): Mean: 4 MV ERO: cm Regurg. Vol.: ml/beat Regurg. Frac.: % PA Pressure: mmHg DOPPLER/COLOR FOLOW DOPPLER COMMENTS: Trace AR, Mild MR, moderate , mild MS, mild TV regurgitation, Mild FL. Diastolic function: indeterminate CONTRAST: 0.9 ml Optison [...] Hg, and mild MR. Mild TR and FL. Unable to assess PA pressure. No pericardial effusion. No vegetations seen. Compared with 07/27/23, no significant change. Confirmed on 12/11/2023 - 13:11:51 by Frank Horn MD By signing this report, the attending colorist dyer certifies that he or she has personally supervised and interpreted the echocardiogram and has reviewed and or edited and agrees with the written comments contained within the report. us Kevin Corrigan MD CV ECHO PROCEDURES Fin al Result * POCT glucose (12/11/2023 8:40 AM CDT) Glucose, POC 194 70 - 199 mg/dL Blood 12/11/2023 8:40 AM CDT 12/11/2023 8:40 AM CDT Kevin Corrigan MD LAB POCT ORDERABLES - DEVICE Final Result Performing Organization Address [facility] Co de Phone Number [facility] [place] [address] * POCT glucose (12/11/2023 3:44 AM CDT) Glucose, POC 185 70 - 199 mg/dL Blood 12/11/2023 3:44 AM CDT 12/11/2023 3:44 AM CDT Kevin Corrigan MD LAB POCT ORDERABLES - DEVICE Final Result Performing Organization Address [facility] de Phone Number [facility] [place] [address] * XR Abdomen Ap 1 Vw (12/11/2023 [...] - DEVICE Final Result Performing Organization Address [facility] Co de Phone Number [facility] [place] [address] * eGFR (12/10/2023 9:37 PM CDT) eGFR [...] ORDERABLES F inal Result Performing Organization Address [facility] Co de Phone Number [facility] [place] [address] * (ABNORMAL) Phosphorus (12/10/2023 9:37 PM CDT) [facility] Phosphorus, pl 1.8(L) 2.3 - 4.5 mg/dL Blood 12/10/2023 9:37 PM CDT 12/10/2023 9:49 PM CDT Kevin Corrigan MD LAB BLOOD ORDERABLES F inal Result Performing Organization Address City/[facility]/ZIP Co de Phone Number [facility] Department [place] [address] * Magnesium (12/10/2023 9:37 PM CDT) [facility] Magnesium 2.2 1.4 - 2.5 mg/dL Blood 12/10/2023 9:37 PM CDT 12/10/2023 9:49 PM CDT Kevin Corrigan MD LAB BLOOD ORDERABLES F inal Result Performing Organization Address City/[facility] Co de Phone Number [facility] Department [place] [address] * (ABNORMAL) Basic metabolic panel (12/10/2023 9:37 PM CDT) [facility] Sodium 135 135 - 145 mmol/L Potassium, pl 4.6 3.3 - 4.9 mmol/L [facility] Chloride 104 97 - 110 mmol/L [facility] Comment:Repeated and Verifie d CO2 25 22 - 32 mmol/L [facility] Anion gap 6 2 - 15 mmol/L [facility] BUN 32(H) 6 - 25 mg/dL [facility] Creatinine 0.79 0.60 - 1.10 mg/dL [facility] Glucose 178 70 - 199 mg/dL [facility] Comment: Interpretive Data Fasting glucose >/= [...] 2022. Calcium 8.0(L) 8.5 - 10.3 mg/dL [facility] Blood 12/10/2023 9:37 PM CDT 12/10/2023 9:49 PM CDT us Kevin Corrigan MD LAB BLOOD ORDERABLES F inal Result [facility] Department [place] [address] * (ABNORMAL) CBC without differential (12/10/2023 9:37 PM CDT) [facility] WBC 5.6 3.8 - 9.9 K/cumm Hgb 8.5(L) 11.9 - 15.5 g/dL [facility] Hct 25.8(L) 35.6 - 45.5 % [facility] Plt 143(L) 150 - 400 K/cumm [facility] MPV 10.3 9.1 - 12.3 fL [facility] RBC 2.66(L) 3.90 - 5.20 M/cumm [facility] MCV 97.0(H) 81.3 - 96.4 fL [facility] MCH 32.0 27.1 - 33.3 pg [facility] MCHC 32.9 32.3 - 35.7 g/dL [facility] RDW CV 15.8(H) 11.1 - 14.9 % [facility] RDW SD 55.2(H) 35.7 - 48.1 fL [facility] NRBC abs 0.00 0.00 - 0.01 K/cumm [facility] Blood 12/10/2023 9:37 PM CDT 12/10/2023 9:49 PM CDT us Kevin Corrigan MD LAB BLOOD ORDERABLES F inal Result Performing Organization Address City/[facility]/ZIP Co de Phone Number [facility] Department [place] [address] * (ABNORMAL) POCT glucose (12/10/2023 7:59 PM CDT) Glucose, POC 210(H) 70 - 199 mg/dL Comment:Glu2: RN/MD Notified Glucose comment 1 Glu2: RN/MD Notified [facility] Blood 12/10/2023 7:59 PM CDT 12/10/2023 7:59 PM CDT us Kevin Corrigan MD LAB POCT ORDERABLES - DEVICE Final Result Performing Organization Address [facility] Co de Phone Number [facility] Department [place] [address] * (ABNORMAL) POCT glucose (12/10/2023 4:36 PM CDT) Pathologist [facility] Glucose, POC 200(H) 70 - 199 mg/dL Blood 12/10/2023 4:36 PM CDT 12/10/2023 4:36 PM CDT us Kevin Corrigan MD LAB POCT ORDERABLES - DEVICE Final Result Performing Organization Address City/[facility]/ZIP Co de Phone Number [facility] Department [place] [address] * Transfuse RBC (12/10/2023 2:10 PM CDT) Blood us Emy Sanchez NP BLOOD TRANSFUSION ORDNarciso CAMPOS Edited Result - Final Performing Organization Address City/[facility]/ZIP Co de Phone Number [facility] Department [place] [address] * Transfuse RBC: 1 Units (12/10/2023 2:10 PM CDT) Blood Emy Sanchez RISK CONSULTING TREASURY DIRECTOR BLOOD TRANSFUSION LINDA CAMPOS Edited Result - Final * Troponin I high-sensitivity (12/10/2023 1:04 PM CDT) Pathologist [facility] Trop I hs 8 <=17 ng/L Comment: Interpretive Data For further hscTnI resources including the diagnostic algorithm and an aid in interpretation, copy and paste this link: [email or web address]/[email or web address] Current Interpretive Data last revised 2019. Blood 12/10/2023 1:04 PM CDT 12/10/2023 1:28 PM CDT Kevin Corrigan MD LAB BLOOD ORDERABLES F inal Result [facility] Department [place] [address] * (ABNORMAL) Pro B-type natriuretic peptide (12/10/2023 1:04 PM CDT) [facility] NT-proBNP 815(H) <=450 pg/mL Comment: Interpretive Comments: [...] Heart J. 2006:27:330-337. 2. Shona RW, Amie AM. J. AM Tiffanie Cardiol: Cardiovasc Imag. 2009;2: 216- 225. Interpretive Data Last Revised Date: 2017. Blood 12/10/2023 1:04 PM CDT 12/10/2023 1:28 PM CDT Kevin Corrigan MD LAB BLOOD ORDERABLES F inal Result [facility] Department of Laboratories [place], [place] [id number] * POCT lactate (12/10/2023 12:44 PM CDT) Lactate POC i-STAT 1.5 0.7 - 2.2 mmol/L Blood 12/10/2023 12:4 4 PM CDT 12/10/2023 12:44 PM CDT Kevin Corrigan MD LAB POCT ORDERABLES - DEVICE Final Result Performing Organization Address [facility] Co de Phone Number [facility] [place] [address] * Prepare RBC: 1 Units (12/10/2023 12:24 PM CDT) [facility] Product code [id number] Unit Number [id number] [facility] Product Blood Type OPOS [facility] Dispense Status PRESUMED TRANSFUSED [facility] Blood 12/10/2023 12:2 4 PM CDT 12/10/2023 12:23 PM CDT Narrative [facility] - 12/11/2023 10:16 AM CDT Are special requirements needed? (All products are leukoreduced and CMV- safe)- >No Donor Source->[employer] Date required:-[id number] LRRBC # of [id number] Reasons:-Active bleeding, Hgb <8 g/dL} Emy Sanchez NP BLOOD BANK PRODUCT ORD ERABLES Final Result Performing Organization Address [facility] Co de Phone Number [facility] Department [place] [address] * (ABNORMAL) CBC without differential (12/10/2023 12:17 PM CDT) [facility] WBC 5.8 3.8 - 9.9 K/cumm Hgb 8.4(L) 11.9 - 15.5 g/dL [facility] Hct 25.8(L) 35.6 - 45.5 % [facility] Plt 162 150 - 400 K/cumm [facility] MPV 9.8 9.1 - 12.3 fL [facility] RBC 2.59(L) 3.90 - 5.20 M/cumm [facility] MCV 99.6(H) 81.3 - 96.4 fL [facility] MCH 32.4 27.1 - 33.3 pg [facility] MCHC 32.6 32.3 - 35.7 g/dL [facility] RDW CV 14.3 11.1 - 14.9 % [facility] RDW SD 51.9(H) 35.7 - 48.1 fL [facility] NRBC abs 0.00 0.00 - 0.01 K/cumm [facility] Blood 12/10/2023 12:1 7 PM CDT 12/10/2023 12:38 PM CDT us Emy Sanchez RISK CONSULTING TREASURY DIRECTOR LAB BLOOD ORDERABLES F inal Result Performing Organization Address City/[facility]/ZIP Co de Phone Number [facility] Department [place] [address] * (ABNORMAL) POCT glucose (12/10/2023 12:13 PM CDT) Glucose, POC 237(H) 70 - 199 mg/dL Blood 12/10/2023 12:1 3 PM CDT 12/10/2023 12:13 PM CDT us Kevin Corrigan MD LAB POCT ORDERABLES - DEVICE Final Result Performing Organization Address [facility] Co de Phone Number [facility] Department [place] [address] * CT Stroke Head WO Contrast (12/10/2023 [...] - DEVICE Final Result MINDI SMART [facility] Department of Laboratories [place], [place] [id number] * POCT glucose (12/10/2023 4:39 AM CDT) Glucose, POC 175 70 - 199 mg/dL Blood 12/10/2023 4:39 AM CDT 12/10/2023 4:39 AM CDT Kevin Corrigan MD LAB POCT ORDERABLES - DEVICE Final Result Performing Organization Address [facility] de Phone Number MINDI [facility] [place] [address] * POCT glucose (12/09/2023 11:50 PM CDT) Glucose, POC 162 70 - 199 mg/dL Blood 12/09/2023 11:5 0 PM CDT 12/09/2023 11:50 PM CDT Kevin Corrigan MD LAB POCT ORDERABLES - DEVICE Final Result Performing Organization Address [facility] de Phone Number [facility] Department [place] [address] * eGFR (12/09/2023 10:24 PM CDT) eGFR [...] ORDERABLES F inal Result Performing Organization Address City/[facility]/ZIP Co de Phone Number [facility] [place] [address] * Phosphorus (12/09/2023 10:24 PM CDT) Phosphorus, pl 2.7 2.3 - 4.5 mg/dL Blood 12/09/2023 10:2 4 PM CDT 12/09/2023 10:37 PM CDT Kevin Corrigan MD LAB BLOOD ORDERABLES F inal Result Performing Organization Address [facility] Co de Phone Number [facility] Department [place] [address] * (ABNORMAL) Magnesium (12/09/2023 10:24 PM CDT) Magnesium 1.2(L) 1.4 - 2.5 mg/dL Blood 12/09/2023 10:2 4 PM CDT 12/09/2023 10:37 PM CDT Kevin Corrigan MD LAB BLOOD ORDERABLES F inal Result Performing Organization Address City/[facility] Co de Phone Number [facility] Department [place] [address] * (ABNORMAL) Basic metabolic panel (12/09/2023 10:24 PM CDT) [facility] Sodium 140 135 - 145 mmol/L Potassium, pl 3.8 3.3 - 4.9 mmol/L [facility] Chloride 112(H) 97 - 110 mmol/L [facility] CO2 24 22 - 32 mmol/L [facility] Anion gap 4 2 - 15 mmol/L [facility] BUN 21 6 - 25 mg/dL [facility] Creatinine 0.71 0.60 - 1.10 mg/dL [facility] Glucose 157 70 - 199 mg/dL [facility] Comment: Interpretive Data Fasting glucose >/= [...] 2022. Calcium 7.0(L) 8.5 - 10.3 mg/dL [facility] Comment:Reviewed Blood 12/09/2023 10:2 4 PM CDT 12/09/2023 10:37 PM CDT Kevin Corrigan MD LAB BLOOD ORDERABLES F inal Result [facility] Department [place] [address] * (ABNORMAL) CBC without differential (12/09/2023 10:24 PM CDT) [facility] WBC 8.1 3.8 - 9.9 K/cumm Hgb 8.8(L) 11.9 - 15.5 g/dL [facility] Hct 27.8(L) 35.6 - 45.5 % [facility] Plt 164 150 - 400 K/cumm [facility] MPV 9.6 9.1 - 12.3 fL [facility] RBC 2.78(L) 3.90 - 5.20 M/cumm [facility] MCV 100.0(H) 81.3 - 96.4 fL [facility] MCH 31.7 27.1 - 33.3 pg [facility] MCHC 31.7(L) 32.3 - 35.7 g/dL [facility] RDW CV 14.1 11.1 - 14.9 % [facility] RDW SD 51.1(H) 35.7 - 48.1 fL [facility] NRBC abs 0.00 0.00 - 0.01 K/cumm [facility] Blood 12/09/2023 10:2 4 PM CDT 12/09/2023 10:37 PM CDT Kevin Corrigan MD LAB BLOOD ORDERABLES F inal Result Performing Organization Address [facility] de Phone Number [facility] [place] [address] * (ABNORMAL) Hemoglobin A1c (12/09/2023 10:24 PM CDT) Hgb A1C 6.5(H) 4.0 - 5.6 % Estimated Average Glucose 140 mg/dL [facility] Comment: The ADA recommends reporting an estimated Average Glucose (eAG) with all Hemoglobin A1c results using the equation derived from a study of 507 normal and diabetic adults. ??Minority populations were underrepresented and children were not included. ?? (Diabetes Care 2020; 43(S1): S66-S76). ??The eAG is not equivalent to a fasting glucose. Blood 12/09/2023 10:2 4 PM CDT 12/09/2023 10:38 PM CDT Emy Sanchez NP LAB BLOOD ORDERABLES F inal Result Performing Organization Address City/[facility]/ZIP Co de Phone Number [facility] Department [place] [address] * XR Femur Left 2 or More [...] position. Electronically signed by: Mario Cardoza M.D. Kevin Corrigan MD IMG XR PROCEDURES [place] Result * POCT glucose (12/09/2023 5:59 PM CDT) Glucose, POC 165 70 - 199 mg/dL Blood 12/09/2023 5:59 PM CDT 12/09/2023 5:59 PM CDT Kevin Corrigan MD LAB POCT ORDERABLES - DEVICE Final Result Performing Organization Address [facility] de Phone Number MINDI [facility] Department [place] [address] * FL Fluoroscopy < 1 Hour (12/09/2023 5:04 PM CDT) Narrative [facility] - 12/09/2023 5:05 PM CDT The images from this study are not interpreted by Radiology. ??Please refer to the physician's procedure / OR operative note. Homer Villalobos MD IMG FLUOROSCOPY PROCEDURES Final Result Performing Organization Address [facility] Phone Number [email or web address] * POCT glucose (12/09/2023 4:20 PM CDT) Glucose, POC 111 70 - 199 mg/dL Blood 12/09/2023 4:20 PM CDT 12/09/2023 4:20 PM CDT Kevin Corrigan MD LAB POCT ORDERABLES - DEVICE Final Result Performing Organization Address [facility] de Phone Number [facility] Department [place] [address] * POCT glucose (12/09/2023 2:01 PM CDT) Glucose, POC 128 70 - 199 mg/dL Blood 12/09/2023 2:01 PM CDT 12/09/2023 2:01 PM CDT Kevin Corrigan MD LAB POCT ORDERABLES - DEVICE Final Result [facility] [place] [address] * POCT glucose (12/09/2023 11:36 AM CDT) Glucose, POC 149 70 - 199 mg/dL Blood 12/09/2023 11:3 6 AM CDT 12/09/2023 11:36 AM CDT Kevin Corrigan MD LAB POCT ORDERABLES - DEVICE Final Result Performing Organization Address [facility] Co de Phone Number [facility] [place] [address] * POCT glucose (12/09/2023 8:34 AM CDT) [facility] Glucose, POC 119 70 - 199 mg/dL Blood 12/09/2023 8:34 AM CDT 12/09/2023 8:34 AM CDT Kevin Corrigan MD LAB POCT ORDERABLES - DEVICE Final Result Performing Organization Address [facility] de Phone Number [facility] [place] [address] * (ABNORMAL) Urinalysis, microscopic only (12/09/2023 5:01 AM CDT) [facility] WBC, ur 6-10(A) 0 - 5 /HPF RBC, ur 3-5(A) 0 - 2 /HPF [facility] Epithelial cells, squamous, ur 1-5 0 - 5 /HPF [facility] Bacteria, ur 3+(A) [facility] Mucous, ur Present(A) [facility] Culture Reflex Comment Reflex conditions for urine culture (WBC >10) not met. [facility] Urine 12/09/2023 5:01 AM CDT 12/09/2023 5:07 AM CDT Whitney Lovelace MD LAB URINE ORDERABLES Fi nal Result Performing Organization Address City/[facility]/ZIP Co de Phone Number MINDI SMATR [facility] Department [place] [address] * (ABNORMAL) Urinalysis reflex to microscopic and culture Urine (12/09/2023 5:01 AM CDT) Color, ur Yellow Yellow Clarity, ur Clear Clear [facility] Specific gravity, ur 1.025 1.003 - 1.030 [facility] pH, urine 5.5 [facility] Comment: Interpretive Data ? Urine pH is affected by diet, medications, systemic acid-base disturbances, and renal tubular function. ??pH may affect urinary stone formation. ??For example, urine pH below 6.0 may help reduce the tendency for calcium phosphate stones and pH greater than 6.0 may reduce the tendency for uric acid stone formation. Source: [facility] Current Interpretive Data was last revised on 2017 Protein, ur ql Trace Negative [facility] Glucose, ur ql Negative Negative [facility] Ketones, ur Negative Negative [facility] Bilirubin, ur Negative Negative [facility] Blood, ur Negative Negative [facility] Urobilinogen, ur <2.0 <2.0 mg/dL [facility] Nitrite, ur Positive(A) Negative [facility] Leukocyte esterase, ur Trace(A) Negative [facility] UA reflex comment Reflex to microscopic UA will be performed. [facility] Urine 12/09/2023 5:01 AM CDT 12/09/2023 5:07 AM CDT Whitney Lovelace MD LAB MICROBIOLOGY - GENE RAL ORDERABLES Final Result Performing Organization Address City/[facility]/ZIP Co de Phone Number [facility]IND[facility] Department [place] [address] * ECG 12 lead (12/09/2023 12:15 AM CDT) Ventricular Rate EKG/Min 85 BPM [facility] QRS-Interval (MSEC) 102 ms [facility] QT-Interval (MSEC) 366 ms [facility] QTc 435 ms [facility] R [place] 31 degrees [facility] T [place] -8 degrees [facility] Diagnosis 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 Incomplete right bundle branch block Inferior infarct , age undetermined Abnormal ECG When compared with ECG of 07-AUG-2023 14:22, Incomplete right bundle branch block is now Present Confirmed by MARY NAGEL M.D ([id number]) on 12/10/2023 10:59:07 PM [facility] 12/09/2023 12:1 5 AM CDT 12/10/2023 10:59 PM CDT Result [facility] Kevin Corrigan MD ECG ORDERABLES Final Result Performing Organization Address [facility] Co de Phone Number [facility] * POCT glucose (12/09/2023 12:01 AM CDT) Glucose, POC 161 70 - 199 mg/dL Blood 12/09/2023 12:0 1 AM CDT 12/09/2023 12:01 AM CDT Result [facility] Kevin Corrigan MD LAB POCT ORDERABLES - DEVICE Final Result Performing Organization Address [facility] Co de Phone Number [facility] [place] [address] * POCT glucose (12/08/2023 8:52 PM CDT) Glucose, POC 170 70 - 199 mg/dL Blood 12/08/2023 8:52 PM CDT 12/08/2023 8:52 PM CDT Result [facility] Kevin Corrigan MD LAB POCT ORDERABLES - DEVICE Final Result Performing Organization Address [facility] Co de Phone Number [facility] Department [place] [address] * CT Femur Left WO Contrast (12/08/2023 [...] MD IMG CT PROCEDURES Final Result * XR Knee [...] it. Electronically signed by: Eldon Castañeda M.D. us Whitney Lovelace MD IMG XR PROCEDURES Final Result * [place] CRITICAL CARE ILL/INJURED PATIENT INIT 30-74 MIN [...] Shelton Fagan M.D., Ph.D Dick Nova MD [facility] XR PROCEDURES Final Result * XR Hip [...] signed by: Shelton Fagan M.D., Ph.D us Dick Nova MD [facility] XR PROCEDURES Final Result * XR Femur [...] Unknown LAB BLOOD ORDERABLES Final Res ult MINDI [facility] Department [place] [address] * Differential, auto (12/08/2023 11:35 AM CDT) Neutrophil abs 4.8 1.5 - 6.5 K/cumm Imm gran abs 0.0 0.0 - 0.1 K/cumm [facility] Lymphocyte abs 1.1 0.8 - 3.3 K/cumm [facility] Monocyte abs 0.5 0.2 - 0.8 K/cumm [facility] Eosinophil abs 0.1 0.0 - 0.5 K/cumm [facility] Basophil abs 0.0 0.0 - 0.1 K/cumm [facility] Neutrophil pct 73.8 % [facility] Comment: Interpretive Data Percent cell count reference ranges are not reported, since discordance with absolute values may lead to misinterpretation of CBC data. Current Interpretive Data was last revised on 2017. Imm gran pct 0.2 % [facility] Comment: Interpretive Data Percent cell count reference ranges are not reported, since discordance with absolute values may lead to misinterpretation of CBC data. Current Interpretive Data was last revised on 2017. Lymphocyte pct 16.9 % [facility] Comment: Interpretive Data Percent cell count reference ranges are not reported, since discordance with absolute values may lead to misinterpretation of CBC data. Current Interpretive Data was last revised on 2017. Monocyte pct 7.4 % [facility] Comment: Interpretive Data Percent cell count reference ranges are not reported, since discordance with absolute values may lead to misinterpretation of CBC data. Current Interpretive Data was last revised on 2017. Eosinophil pct 1.2 % [facility] Comment: Interpretive Data Percent cell count reference ranges are not reported, since discordance with absolute values may lead to misinterpretation of CBC data. Current Interpretive Data was last revised on 2017. Basophil pct 0.5 % [facility] Comment: Interpretive Data Percent cell count reference ranges are not reported, since discordance with absolute values may lead to misinterpretation of CBC data. Current Interpretive Data was last revised on 2017. Blood 12/08/2023 11:3 5 AM CDT 12/08/2023 12:05 PM CDT Notinfile Unknown LAB BLOOD ORDERABLES Final Res ult Performing Organization Address [facility] de Phone Number [facility] [place] [address] * Type and screen (12/08/2023 11:35 AM CDT) Gian, indirect Negative ABO Rh O Positive [facility] Blood 12/08/2023 11:3 5 AM CDT 12/08/2023 12:12 PM CDT Narrative [facility] - 12/08/2023 1:13 PM CDT Has the patient had Daratumumab or Isatuximab in the past 6 months?->Unknown Andre Willson MD LAB BLOOD BANK TEST ORDERABLES Final Result Performing Organization Address [facility] de Phone Number [facility] [place] [address] * aPTT (12/08/2023 11:35 AM CDT) Pathologist [facility] aPTT 33 28 - 38 sec Comment: Interpretive Data Heparin therapeutic range: 66.0 - 100.0 seconds. Range based on correlation with therapeutic heparin activity range of 0.3 - 0.7 Units/mL. Current interpretive data was last revised on 2022. Blood 12/08/2023 11:3 5 AM CDT 12/08/2023 12:02 PM CDT Andre Willson MD LAB BLOOD ORDERABLES Final Res ult Performing Organization Address [facility] de Phone Number [facility] [place] [address] * (ABNORMAL) Protime-INR (12/08/2023 11:35 AM CDT) PT 17.1(H) 9.7 - 13.0 sec INR 1.57(H) 0.90 - 1.20 [facility] Comment: Interpretive data Oral anticoagulant therapeutic ranges: Venous thromboembolism prophylaxis or treatment: 2.0-3.0 CARDIOLOGY Standard range: 2.0-3.0 High-intensity range: 2.5-3.5 Refer to indication-specific guidelines for appropriate target ranges for prosthetic heart valve replacement. Current interpretive data was last revised on 2019. Blood 12/08/2023 11:3 5 AM CDT 12/08/2023 12:02 PM CDT us Andre Willson MD LAB BLOOD ORDERABLES Final Res ult [facility] Department [place] [address] * Comprehensive metabolic panel (12/08/2023 11:35 AM CDT) Sodium 137 135 - 145 mmol/L Potassium, pl 4.9 3.3 - 4.9 mmol/L [facility] Chloride 105 97 - 110 mmol/L [facility] CO2 27 22 - 32 mmol/L [facility] Anion gap 5 2 - 15 mmol/L [facility] BUN 22 6 - 25 mg/dL [facility] Creatinine 0.63 0.60 - 1.10 mg/dL [facility] Glucose 105 70 - 199 mg/dL [facility] Comment: Interpretive Data Fasting glucose >/= [...] 2022. Calcium 10.0 8.5 - 10.3 mg/dL [facility] Bilirubin, total 0.4 0.1 - 1.2 mg/dL [facility] Protein, pl 7.0 6.5 - 8.5 g/dL [facility] Albumin 3.9 3.5 - 5.0 g/dL [facility] Alk phos 75 40 - 130 Units/L [facility] ALT 21 7 - 45 Units/L [facility] AST 25 10 - 45 Units/L [facility] Blood 12/08/2023 11:3 5 AM CDT 12/08/2023 12:05 PM CDT us Andre Willson MD LAB BLOOD ORDERABLES Final Res ult [facility] Department [place] [address] * (ABNORMAL) CBC with auto differential (12/08/2023 11:35 AM CDT) Pathologist [facility] WBC 6.5 3.8 - 9.9 K/cumm Hgb 11.3(L) 11.9 - 15.5 g/dL [facility] Hct 35.0(L) 35.6 - 45.5 % [facility] Plt 204 150 - 400 K/cumm [facility] MPV 9.8 9.1 - 12.3 fL [facility] RBC 3.58(L) 3.90 - 5.20 M/cumm [facility] MCV 97.8(H) 81.3 - 96.4 fL [facility] MCH 31.6 27.1 - 33.3 pg [facility] MCHC 32.3 32.3 - 35.7 g/dL [facility] RDW CV 14.1 11.1 - 14.9 % [facility] RDW SD 50.4(H) 35.7 - 48.1 fL [facility] NRBC abs 0.00 0.00 - 0.01 K/cumm [facility] Blood 12/08/2023 11:3 5 AM CDT 12/08/2023 12:05 PM CDT us Andre Willson MD LAB BLOOD ORDERABLES Final Res ult MINDI PEÑA [facility] Department [place] [address] documented in this encounter Visit Diagnoses Diagnosis Closed displaced fracture of left femoral neck (HCC)- Primary Closed displaced fracture of left femoral neck (HCC) Contusion of left shoulder, initial encounter Fall, initial encounter Fall from standing, initial encounter Chronic heart failure with reduced ejection fraction and diastolic dysfunction ([facility]) ([facility]) Primary hypertension Unspecified essential hypertension Obstructive sleep apnea on CPAP History of CAD (coronary artery disease) History of diabetes mellitus Personal history of endocrine, metabolic, and immunity disorders Closed nondisplaced intertrochanteric fracture of left femur, initial encounter ([facility]) Anxiety Anxiety state, unspecified Hyponatremia Hyposmolality and/or hyponatremia Closed nondisplaced intertrochanteric fracture of left femur ([facility]) Paroxysmal atrial fibrillation ([facility]) ([facility]) Atrial fibrillation Discharge planning issues Encounter for medication review Essential hypertension Unspecified essential hypertension Type 2 diabetes mellitus without complications ([facility]) ([facility]) DNR (do not resuscitate) Other specified conditions influencing health status Advanced care planning/counseling discussion Closed nondisplaced intertrochanteric fracture of left femur, initial encounter ([facility]) documented in this encounter Admitting Diagnoses Diagnosis Closed displaced fracture of left femoral neck (HCC) Closed nondisplaced intertrochanteric fracture of left femur ([facility]) documented in this encounter Administered Medications Inactive [...] Given 12/13/2023 8:49 PM CDT 0.5 mg calcium carbonate (TUMS) chewable tablet 500 mg 500 mg (200 mg of elemental calcium), oral, 2 times daily, First dose on Thu12/12/23 at 1315 Given 12/16/2023 7:50 AM CDT 500 mg Given 12/15/2023 8:42 PM CDT 500 mg Given 12/15/2023 9:20 AM CDT 500 mg carvediloL (COREG) tablet 25 mg 25 mg, oral, 2 times daily with meals (bkfst, dinner), First dose (after last modification) on Thu12/12/23 at 1800 Given 12/16/2023 5:11 PM CDT 25 mg Given 12/16/2023 7:51 AM CDT 25 mg Given 12/15/2023 5:55 PM CDT 25 mg cholecalciferol (VITAMIN D-3) capsule 1,000 Units 1,000 [...] for each episode of hypoglycemia., Indications: hypoglycemic disorderIndications:hypoglycemi c disorder dextrose gel in packet 15 g 15 [...] for each episode of hypoglycemia., Indications: hypoglycemic disorderIndications:hypoglycemi c disorder enoxaparin (LOVENOX) syringe 30 mg 30 mg, subcutaneous, Every 12 hours scheduled, First dose (after last modification) on Yuliaan 12/10/23 at 0915, Indications: Deep Vein Thrombosis PreventionIndications:Deep Vein Thrombosis Prevention Given 12/16/2023 7:52 AM CDT 30 mg Left Lower Abdomen Given 12/15/2023 8:42 PM CDT 30 mg Ri ght Lower Abdomen Given 12/15/2023 9:18 AM CDT 30 mg Le ft Lower Abdomen FLUoxetine (PROzac) capsule 20 mg 20 mg, oral, Daily, First dose on Thu12/09/23 at 0900 Given 12/16/2023 7:51 AM CDT 20 mg Given 12/15/2023 9:20 AM CDT 20 mg Given 12/14/2023 8:17 AM CDT 20 mg glucagon injection 1 mg 1 mg, [...] 1 mL SWFI. Use immediately following reconstitution. insulin lispro (HumaLOG, ADMELOG) 100 unit/mL injection [...] CDT 2 Units Le ft Lower Abdomen levothyroxine (SYNTHROID) tablet 50 mcg 50 mcg, [...] 6:12 PM CDT 1 patch Other (Comment) methocarbamoL (ROBAXIN) tablet 500 mg 500 mg, oral, 3 times daily, First dose on Thu12/16/23 at 0945 ondansetron (ZOFRAN) injection 4 mg 4 mg, intravenous, Administer over 2 Minutes, Every 4 hours PRN, nausea, vomiting, Starting on Yuliana 12/10/23 at 2333 Given 12/16/2023 12:21 PM CDT [...] at 0739, For 1 dose, Intra-Procedure (CV) polyethylene glycol (MIRALAX) packet 17 g 17 g, oral, Daily, First dose on Thu12/09/23 at 0900, Indications: constipationIndications:constipation Given 12/16/2023 7:52 AM CDT 17 g Given 12/15/2023 9:20 AM CDT 17 g Given 12/14/2023 8:18 AM CDT 17 g rosuvastatin (CRESTOR) tablet 20 mg 20 mg, [...] AM CDT 1 tablet sodium chloride 0.9% irrigation As needed, Starting on Thu12/09/23 at 1549, Intra-Op Given 12/09/2023 4:15 PM CDT 1,000 mL Other (Comment) sterile water irrigation As needed, Starting on Thu12/09/23 at 1549, Intra-Op Given 12/09/2023 4:15 PM CDT 500 mL Other (Comment) documented in this encounter Discontinued Medications Medication [...] Kaiser, ARMANI)1755 (Given - Provider: Eneida Kaiser RN)2246 (Given - Provider: Negra Manrique RN) 0451 (Given - Provider: Aron Perez RN)1149 (Given - Provider: Minerva Marcano, ARMANI)1634 (Given - Provider: Minerva Marcano RN) bisacodyL (DULCOLAX) suppository 10 mg (COMPLETED) 10 mg, rectal, Once, On 12/14/23 at 0945, For 1 dose, Indications: constipation 1508 (Given - Provider: Dariana Washington RN) calcium carbonate (TUMS) chewable tablet 500 mg 500 mg (200 mg of elemental calcium), oral, 2 times daily, First dose on 12/12/23 at 1315 0817 (Given - Provider: Dariana Washington RN)2153 (Given - Provider: Aron Perez RN) 0920 (Given - Provider: Eneida Kaiser RN)2042 (Given - Provider: Aron Perez RN) 0750 (Given - Provider: Minerva Marcano RN) carvediloL (COREG) tablet 25 mg 25 mg, oral, 2 times daily with meals (bkfst, dinner), First dose (after last modification) on 12/12/23 at 1800 0817 (Given - Provider: Dariana Washington RN)1726 (Given - Provider: Dariana Washington RN) 0924 (Given - Provider: Eneida Kaiser, ARMANI)1755 (Given - Provider: Eneida Kaiser, ARMANI) 0751 (Given - Provider: Minerva Marcano RN)1711 (Given - Provider: Minerva Marcano RN) cholecalciferol (VITAMIN D-3) capsule 1,000 Units 1,000 Units, oral, Daily, First dose on Thu12/11/23 at 1230, Each capsule contains 1,000 units (25 mcg) of cholecalciferol. 0817 (Given - Provider: Dariana Washington RN) 0920 (Given - Provider: Eneida Kaiser RN) 0751 (Given - Provider: Minerva Marcano RN) enoxaparin (LOVENOX) syringe 30 mg 30 mg, subcutaneous, Every 12 hours scheduled, First dose (after last modification) on Thu12/10/23 at 0915, Indications: Deep Vein Thrombosis Prevention 0817 (Given - Provider: Dariana Washington, ARMANI)2153 (Given - Provider: Aron Perez, ARMANI) 09 (Given - Provider: Eneida Kaiser, ARMANI)204 (Given - Provider: Aron Perez, ARMANI) 075 (Given - Provider: Minerva Marcano, ARMANI) FLUoxetine (PROzac) capsule 20 mg 20 mg, oral, Daily, First dose on Thu12/09/23 at 0900 0817 (Given - Provider: Dariana Washington RN) 0920 (Given - Provider: Eneida Kaiser, ARMANI) 075 (Given - Provider: Minerva Marcano, ARMANI) insulin lispro (HumaLOG, ADMELOG) 100 unit/mL injection [...] Dariana Washington RN)1154 (Given - Provider: Dariana Washington, ARMANI) insulin lispro (HumaLOG, ADMELOG) 100 unit/mL injection [...] RN) 0751 (Given - Provider: Minerva Marcano RN)1148 (Given - Provider: Minerva Marcano RN)1711 (Given [...] Eneida Kaiser RN) 0751 (Given - Provider: Minevra Marcano RN) lidocaine (ASPERCREME) 4 % patch 1 patch 1 patch, transdermal, Administer over 12 Hours, Every 24 hours, First dose on Thu12/08/23 at 1826, Apply to affected area: back 0606 (Medication Removed - Provider: Alfredo Lind RN)1727 (Medication Applied - Provider: Dariana Washington RN - Comment: left thigh) 0448 (Medication Removed - Provider: Aron Perez, ARMANI)1755 (Medication Applied - Provider: Eneida Kaiser RN - Comment: L leg) 0430 (Medication Removed - Provider: Aron Perez, ARMANI)1713 (Not Given - Provider: Minerva Marcano RN [...] Indications: constipation 0818 (Given - Provider: Dariana Washington, ARMANI) 0920 (Given - Provider: Eneida Kaiser, ARMANI) [...] of sodium. 2348 (Given - Provider: Aron Perez RN) PRN Medication Order 12/14/2023 12/15/2023 12/16/2023 [...] at 2333 0309 (Given - Provider: Alfredo Lind RN)2156 (Given - Provider: Aron Perez RN) 0744 (Given - Provider: Eneida Kaiser RN)2226 (Given - Provider: Aron Perez, ARMANI) 1221 (Given - Provider: Minerva Marcano RN) oxyCODONE (ROXICODONE) tablet 5 mg 5 mg, oral, Every 4 hours PRN, 2nd line for pain, Starting on Thu12/08/23 at 2250, Indications: Pain 0608 (Given - Provider: Alfredo Lind RN) 0329 (Given - Provider: Aron Perez, ARMANI)0921 (Not Given - Provider: Eneida Kaiser, ARMANI - Reason: Patient/family refused) 0353 (Given - Provider: Aron Perez, ARMANI) perflutren lipid (DEFINITY) 1.5 mL in sodium [...] Kaiser, ARMANI) 0452 (Given - Provider: Aron Perez, ARMANI) Linked Groups Order Group 1: dextrose gel [...] Ordered Date methocarbamoL (ROBAXIN) tablet 500 mg 2 04/202312/10/2023 Lactated Ringer's (LR) bolus 500 mL 1 12/14 sodium chloride tablet 1 g 2 12/15/2023 0 12/14/2023 bisacodyL (DULCOLAX) suppository 10 mg 1 insulin lispro (HumaLOG, ADM ELOG) 100 unit/mL injection 0-10 Units 2 12/14/2023 12/09/2023 magnesium citrate oral solution 296 mL 1 magnesium sulfate 2 g/50 mL in water (premix) 2 g 1 12/13/2023 sodium chloride 0.9% IVPB 0-250 mL 3 202312/10/2023 calcium carbonate (TUMS) karis wable tablet 500 mg 1 12/12/2023 carvediloL (COREG) tablet 12.5 mg 3 024 12/11/2023 carvediloL (COREG) tablet 25 mg 1 dextrose (D10W) 10% bolus 500 mL 1 12/12/19 24 insulin regular (HumuLIN R, NovoLIN R) 100 unit/mL injection 4 Units 1 12/12/2023 cholecalciferol (VITAMIN D-3 ) capsule 1,000 Units 1 12/11/2023 ergocalciferol (VITAMIN D) c apsule 50,000 Units 1 12/11/2023 perflutren lipid (DEFINITY) 1.5 mL in sodium chloride 0.9% 10 mL syringe 1 12/11/2023 perflutren protein-a (OPTISO N) 3 mL in sodium chloride 0.9% 8 mL syringe 2 12/11/2023 prochlorperazine (COMPAZINE) injection 5 mg 1 12/11/2023 enoxaparin (LOVENOX) syringe 30 mg 2 202312/08/2023 magnesium sulfate 4 g/100 mL in water (premix) 4 g 1 12/10/2023 ondansetron (ZOFRAN) injection 4 mg 2 12/0912/08/2023 sodium chloride 0.9% bolus 1,000 mL 1 12/09 sodium chloride 0.9% bolus 500 mL 1 024 Carrier Fluids for Secondary Infusion - 0.9% Sodium Chloride 1 12/09/2023 ceFAZolin (ANCEF) 2,000 mg/2 0 mL in sterile water (premix) 2,000 mg 2 12/09/2023 dextrose (D10W) 10% bolus 250 mL 12/09/19 dextrose gel in packet 15 g 1 12/09/2023 diphenhydrAMINE (BENADRYL) 5 0 mg/mL injection 12.5 mg 1 12/09/2023 glucagon injection 1 mg 1 12/09/2023 hydrALAZINE (APRESOLINE) injection 5 mg 1 0 12/09/2023 HYDROmorphone (DILAUDID) injection 0.2 mg 1 12/09/2023 HYDROmorphone (DILAUDID) injection 0.4 mg 1 12/09/2023 ketorolac (TORADOL) 30 mg/mL injection 15 mg 1 12/09/2023 labetaloL (NORMODYNE,TRANDAT E) injection 10 mg 1 12/09/2023 Lactated Ringer's (LR) infusion 2 metoprolol (LOPRESSOR) injection 1 mg 1 naloxone (NARCAN) 0.4 mg/mL injection 0.04-0.4 mg 1 12/09/2023 sodium chloride 0.9% flush 0.5-20 mL 11/15 sodium chloride 0.9% infusion 12/09/2023 acetaminophen (TYLENOL) tablet 1,000 mg 1 0 12/08/2023 ALPRAZolam (XANAX) tablet 0.5 mg 1 12/08/19 apixaban (ELIQUIS) tablet 5 mg 12/08/2023 BUPivacaine (MARCAINE) 0.5 % (5 mg/mL) preservative free injection 100 mg 1 12/08/2023 carvediloL (COREG) tablet 50 mg 1 4 fentaNYL (SUBLIMAZE) preserv ative free injection 50 mcg 1 12/08/2023 FLUoxetine (PROzac) capsule 20 mg 1 024 furosemide (LASIX) tablet 40 mg 1 4 HYDROmorphone (DILAUDID) injection 0.5 mg 2 12/08/2023 ketamine (KETALAR) injection 10 mg 1 2023 levothyroxine (SYNTHROID) tablet 50 mcg 1 0 12/08/2023 lidocaine (ASPERCREME) 4 % patch 1 patch 1 12/08/2023 losartan (COZAAR) tablet 100 mg 1 4 oxyCODONE (ROXICODONE) tablet 5 mg 1 2023 polyethylene glycol (MIRALAX) packet 17 g 1 12/08/2023 rosuvastatin (CRESTOR) tablet 20 mg 1 12/07 senna (SENOKOT) tablet 1 tablet 1 4 spironolactone (ALDACTONE) tablet 50 mg 1 0 12/08/2023 Lab Orders Without Results Count Last Ordered [...] 12/08/2023 documented in this encounter Care Teams Drug Safety Coordinator Relationship Specialty Start Date End Date Cuba Larsen MD PCP - General Family Medicine 01/23/22 Chris Mendes MD Referring Physician Cardiology 12/23/21 Keli Orozco, crime scene examiner Failure Coordinator Transplant 04/15/23 Tami Mcknight crime scene examiner Failure Coordinator Cardiology 09/14/23 documented as of this encounter
--- OUTSIDE RECORDS SUMMARY | 2024-03-13 01:08 | XMS_ITS | Encounter Summary ---
Author Organization [facility] Address [address] [place] [address] Phone Care Team Providers Care It Operations Manager Name Role Phone Chris Mendes MD Unavailable [phone] Cuba Larsen MD Primary Care Provider [phone] Keli Orozco RN Unavailable Unavailable Tami Mcknight RN Unavailable Unavailab le Encounter Details Date Type Department Care Team (Late st Contact Info) Description 09/22/2023 Telephone [facility] Cardiology [address] [facility] [address] [place] [address] [place] [id number] Chris Mendes MD [address] [facility] [address] [place] [address] Social History Tobacco Use Types Packs/Day Years [...] PHQ-2 Answer Date Recorded PHQ-2 Total Score 12 09/02/2023 Personal Safety Answer Date Recorded Have you ever been in or are you currently in a harmful physical or emotional relationship or is someone making you feel afraid or unsafe? 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 She said that she had a stroke and was supposed to see the doctor sooner rather than later. Patient had to cancel her appt today due to her being ill. documented in this encounter Plan of Treatment Not on file documented as of this encounter Visit Diagnoses Not on filedocumented in this encounter Care Teams It Operations Manager Relationship Specialty Start Date End Date Cuab Larsen MD PCP - General Family Medicine 01/23/22 Chris Mendes MD Referring Physician Cardiology 12/23/21 Keli Orozco, powder guard Failure Coordinator Transplant 04/15/23 Tami Mcknight RN Heart Failure Coordinator Cardiology 09/14/23 documented as of this encounter
--- OUTSIDE RECORDS SUMMARY | 2024-03-13 01:08 | XMS_ITS | Encounter Summary ---
Author Organization [facility] Address [address] [place] [address] Phone Care Team Providers Care Supervisor Dry Cleaning Name Role Phone Chris Mendes MD Unavailable [phone] Cuba Larsen MD Primary Care Provider [phone] Keli Orozco RN Unavailable Unavailable Tami Mcknight RN Unavailable Unavailab le Reason for Referral * Consultation (Routine) - Pending Review Specialty Diagnoses / Procedures Referred By Indra muñoz Referred To Contact Sleep Medicine Diagnoses 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 (CMS/HCC) (HCC) Araceli Salcedo MD [address] [place] [address] Phone: tel: fax: [facility] [address] [facility] [address] [place] [address] Phone: tel: fax: Referral ID Status Reason Start Date Expiration Date Visits Requested Visits Authorized [id number] Pending Review Specialty Services Required 10/09/2023 11/07/2024 1 1 Question Answer Please select the performing region: [facility] (All Locations) [167] # of visits: 1 Comments Stroke pt with AYAD, waking up at night due to CPAP mask Reason for Visit * Consultation (Routine) - Authorized Specialty Diagnoses / Procedures Referred By Contac t Referred To Contact Neurology Diagnoses History of CVA (cerebrovascular accident) Cuba Larsen MD [facility] [facility] [place] [address] Phone: tel: fax: Araceli Salcedo MD [address] [place] [address] Phone: tel: fax: Referral ID Status Reason Start Date Expiration Date Visits Requested Visits Authorized [id number] Authorized Specialty Services Required 10/09/2023 10/07/2024 12 12 Encounter Details Date Type Department Care Team (Latest Contact Info) Description 10/09/2023 11:00 AM CDT Office Visit [facility] [address] [facility] [address] [place] [address] Araceli Salcedo MD [address] [place] [address] 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 (CMS/HCC) (HCC) (Primary Dx); Paroxysmal atrial fibrillation (CMS/HCC) (HCC); Essential hypertension; Hyperlipidemia, unspecified hyperlipidemia type; History of CVA (cerebrovascular accident) Social History Tobacco Use Types Packs/Day Years [...] on file 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 Pearce is an 83-year-old woman here for hospital follow-up of right MCA territory ischemic stroke. HISTORY OF PRESENT ILLNESS: Since hospital discharge, the patient states that she continues to feel tired, although she acknowledges that she has not felt right since her AFib diagnosis years ago. She states she missed her evening dose of Eliquis the night before her stroke, and she thinks that is what caused it. The patient states she is sleeping better on CPAP in general but did not use it this week. She acknowledges thatshe is struggling with depression and has previously been on Prozac but was never sure that it worked. She also reports occasional mild headaches at the occiput which are relieved with Tylenol. Otherwise, she denies new episodes of weakness, numbness, vision loss, difficulty speaking, or difficultyambulating. She is performing all ADLs at home. ALLERGIES: AMLODIPINE, MILI INHIBITORS, CITALOPRAM, LISINOPRIL, HYDROCHLOROTHIAZIDE. MEDICATIONS: Reviewed in [employer]. PAST MEDICAL, FAMILY, SOCIAL HISTORY: Reviewed in Epic. REVIEW OF SYSTEMS: All other systems negative except as per HPI. PHYSICAL EXAMINATION: VITAL SIGNS: Blood pressure 140/83. Pulse 94. Weight 189 pounds. GENERAL: The patient is well dressed and well groomed, in no apparent distress. NEUROLOGICAL EXAMINATION: MENTAL STATUS: Awake and alert with fluent speech and intact comprehension. Attention is normal. Naming, repetition, and comprehension are intact. CRANIAL NERVES: There is no ptosis. Extraocular movements are conjugate without nystagmus. Visual lopes are intact to bedside testing. There is minimal left facial weakness sparing the forehead. Speech is clear without dysarthria or dysphonia. Tongue protrusion is midline. MOTOR: Strength is 5/5 in bilateral upper and lower extremities on the MRC scale except 4/5 in the left finger extensors and interossei. There is a left fix but no drift. Bulk is normal. Tone is minimally increased on the left. SENSATION: There is no simultagnosia to double simultaneous stimulation. REFLEXES: These are 2 on the right and 2+ on the left at the biceps, triceps, brachioradialis, knees, and ankles. COORDINATION: [id number] and rapid alternating movements are minimally slow on the left. There is a low-amplitude high-frequency postural kinetic tremor in bilateral upper extremities. STATION AND GAIT: This is narrow based with decreased stride length and arm swing on the left. The patient also lists to the left when she walks. ASSESSMENT: 1. 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 2. Atrial fibrillation. 3. Hypertension. 4. Hyperlipidemia. 5. Essential tremor. PLAN: 1. PCP should continue efforts to maintain blood pressure less than 130/80 in accordance with current guidelines. The patient is continuing to work with her department store general manager regarding her blood pressure control. 2. The patient should continue high-intensity statin therapy in accordance with current guidelines with LDL goal less than 70. 3. The patient should continue Eliquis twice daily for stroke prevention in atrial fibrillation. 4. As the patient's tremor is currently nondisabling, there is no clear reason for medical management at this time. 5. I would like to see the patient back in my clinic in approximately 6 months to review symptom pattern and determine if additional medical management or diagnostic testing is necessary at that time. Thank you for allowing me to participate in the care of this patient. Please do not hesitate to contact me with additional questions or concerns. 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 (CMS/HCC) (HCC) Expected: 10/23/2023 (Approximate), Expires: 10/08/2024 documented as of this encounter Visit Diagnoses Diagnosis 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 (CMS/HCC) (HCC)- Primary Paroxysmal atrial fibrillation (CMS/HCC) (HCC) Atrial fibrillation Essential hypertension Unspecified essential hypertension Hyperlipidemia, unspecified hyperlipidemia type History of CVA (cerebrovascular accident) Transient ischemic attack (TIA), and cerebral infarction without residual deficits documented in this encounter Orders Outpatient Referral Count Last Ordered Date Fir st Ordered Date AMB REFERRAL TO NEUROLOGY 1 10/09/2023 documented in this encounter Care Teams Supervisor Dry Cleaning Relationship Specialty Start Date End Date Cuba Larsen MD PCP - General Family Medicine 01/23/22 Chris Mendes MD Referring Physician Cardiology 12/23/21 Keli Orozco, district court judge Failure Coordinator Transplant 04/15/23 Tami Mcknight, district court judge Failure Coordinator Cardiology 09/14/23 documented as of this encounter
--- OUTSIDE RECORDS SUMMARY | 2024-03-13 01:08 | XMS_ITS | Encounter Summary ---
Author Organization [facility] Address [address] [place] [address] Care Team Providers Care Watch Engine Operator Name Role Phone Chris Mendes MD Unavailable [phone] Cuba Larsen MD Primary Care Provider [phone] Keli Orozco RN Unavailable Unavailable Tami Mcknight RN Unavailable Unavailab le Encounter Details Date Type Department Care Team (Late st Contact Info) Description 11/20/2023 [facility] Post Discharge Follow up phone call [address] [phone] Racquel Stevenson, ARMANI Social History Tobacco Use Types Packs/Day Years [...] on file 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
--- OUTSIDE RECORDS SUMMARY | 2024-03-13 01:08 | XMS_ITS | Encounter Summary ---
Author Organization [facility] Address [address] [place] [address] Phone Care Team Providers Care Cognos Report Developer Name Role Phone Chris Mendes MD Unavailable [phone] Cuba Larsen MD Primary Care Provider [phone] Keli Orozco RN Unavailable Unavailable Tami Mcknight RN Unavailable Unavailab le Encounter Details Date Type Department Care Team (Late st Contact Info) Description 11/06/2023 10:00 AM CDT Office Visit [facility] Radiology, Interventional Radiology [address] [place] [id number] Enid Erazo PA [address] [place] [address] Acute cerebrovascular accident (CVA) due to occlusion of right middle cerebral artery (HCC) (Primary Dx) Social History Tobacco Use [...] on file 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 Gender Identity Not on file Sexual Orientation Not on file documented as of this encounter Last Filed Vital Signs Vital Sign Reading Time Taken Comments Blood Pressure - - Pulse - - Temperature - - Respiratory Rate - - Oxygen Saturation - - Inhaled Oxygen Concentration - - Weight 84.8 kg (187 lb) 11/06/2023 10:15 AM CDT Height 157.5 cm (5' 2 ) 11/06/2023 10:15 AM CDT Body Mass Index 34.2 11/06/2023 10:15 AM CDT documented in this encounter Progress Notes * Enid Erazo PA - 11/06/2023 10:00 AM CDT Subjective: Danette Pearce is an 83-year-old female with A fib on AC, HTN, HLD, T2 DM, hypothyroidism, PE, CHF, previous right MCA CVA (05/2021) and recent CVA right middle cerebral artery on 08/07/2023 here for three-month follow-up s/p mechanical thrombectomy 08/07/2023. Dr. Jami Simental was the attending physician. She is here today with her son. At baseline she was completely independent. She presented on 08/07/2023 at [facility] ED with left facial droop, left arm and leg weakness, and right gaze deviation. CT head was without acute intracranial abnormalities. CTA demonstrated right M1 segment MCA occlusion. She was emergently transferred to our service for possible mechanical thrombectomy. Initial angiography demonstrated a right middle cerebral artery M1 segment occlusion. She underwent a successful 1-pass aspiration mechanical thrombectomy of the right middle cerebral artery. Final angiography demonstrated reperfusion through the right middle cerebral artery territory with some slow flowing distal cortical vessels consistent with eTICI 2C reperfusion. There were no procedural or post-operative complications. She was discharged to home mostly back to her baseline. She has an appointment with stroke neurology on 04/15/2024. Today she reports she is completely back to her baseline with no physical limitations and doing all ADLs. She reports anxiety and depression which is being managed by her PCP. Objective: Alert, Awake, and Oriented x 3, Regards, Follows Commands Answers Questions Appropriately, Fluent Speech B/L PERRL, EOMI, visual acuity grossly wnl, no nystagmus or ptosis Face Symmetric, Tongue Midline Hearing is symmetric to finger rub Shoulder shrug is normal and symmetric 5/5 BUE, BLE No pronator drift Sensation intact and symmetric in all extremities Gait and coordination: Gait is normal. Rboctl-ny-[id number] coordination is normal mRS 0 NIHSS 0 Assessment/Plan: Three-months s/p successful mechanical thrombectomy of right middle cerebral artery occlusion with TICI 2C reperfusion -doing well; has appointment with stroke neurology on 04/15/2024 -chronic health issues managed by her PCP and cardiology -no further follow-up with our service required documented in this encounter Plan of Treatment Not on file documented as of this encounter Visit Diagnoses Diagnosis Acute cerebrovascular accident (CVA) due to occlusion of right middle cerebral artery (HCC)- Primary documented in this encounter Care Teams Cognos Report Developer Relationship Specialty Start Date End Date Cuba Larsen MD PCP - General Family Medicine 01/23/22 Chris Mendes MD Referring Physician Cardiology 12/23/21 Keli Orozco, furnace worker Failure Coordinator Transplant 04/15/23 Tami Mcknight RN Heart Failure Coordinator Cardiology 09/14/23 documented as of this encounter
--- OUTSIDE RECORDS SUMMARY | 2024-03-13 01:08 | XMS_ITS | Encounter Summary ---
Author Organization [facility] Address [address] [place] [address] Care Team Providers Care Design Intern Name Role Phone Chris Mendes MD Unavailable [phone] Cuba Larsen MD Primary Care Provider [phone] Keli Orozco RN Unavailable Unavailable Tami Mcknight RN Unavailable Unavailab le Reason for Referral * Consultation (Routine) - Closed Specialty Diagnoses / Procedures Referred By Indra muñoz Referred To Contact Podiatry Diagnoses [place] Cuba Larsen MD [address] [facility] [address] [address] Phone: tel: fax: Brandon Castillo DPM [address] [place] [address] Phone: tel: fax: Referral ID Status Reason Start Date Expiration Date V isits Requested Visits Authorized [id number] Closed Specialty Services Required 10/01/2023 10/30/2024 1 1 Question Answer Please select the performing region: External Order [171] To provider: BRANDON CASTILLO [[id number]] # of visits: 1 Reason for Visit * Reason Comments Cerebrovascular Accident 4 week f/u Encounter Details Date Type Department Care Team (Late st Contact Info) Description 10/01/2023 11:30 AM CDT Office Visit [facility] Family Medicine at [address] [place] [phone] Cuba Larsen MD [address] [facility] [address] [id number] Essential hypertension (Primary Dx); History of CVA (cerebrovascular accident); Paroxysmal atrial fibrillation (CMS/HCC) (HCC); Type 2 diabetes mellitus without complication, without long-term current use of insulin (CMS/HCC) (HCC); [place] Social History Tobacco Use Types Packs/Day Years [...] on file 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 Gender Identity Not on file Sexual Orientation Not on file documented as of this encounter Last Filed Vital Signs Vital Sign Reading Time Taken Comments Blood Pressure 106/74 10/01/2023 11:45 AM CDT Pulse 99 10/01/2023 11:45 AM CDT Temperature 37.1 ??C (98.7 ??F) 10/01/2023 11:45 AM C DT Respiratory Rate - - Oxygen Saturation 97% 10/01/2023 11:45 AM CDT Inhaled Oxygen Concentration - - Weight 85 kg (187 lb 8 oz) 10/01/2023 11:45 AM C DT Height 157.5 cm (5' 2 ) 10/01/2023 11:45 AM CDT Body Mass Index 34.29 10/01/2023 11:45 AM CDT documented in this encounter Progress Notes * Ingrid Zimmerman, [employer] - 10/01/2023 11:30 AM CDT Images from the original note were not included. Subjective/Objective Patient ID: Prema Pearce is a 83 y.o. female. Chief Complaint Cerebrovascular Accident (4 week f/u) She had a CT in July that showed chronic infarct unchanged. Sees cardiology. On her meds. Blood pressures been controlled. Sugars are good. On meds , fatigue, Not sob no cp. Cerebrovascular Accident Associated symptoms include arthralgias and fatigue. Pertinent negatives include no abdominal pain,chest pain, coughing, fever, headaches, nausea or neck pain. Review of Systems Constitutional: Positive for fatigue. Negative for fever. Respiratory: Negative for cough and shortness of breath. Cardiovascular: Negative for chest pain and leg swelling. Gastrointestinal: Negative for abdominal pain and nausea. Musculoskeletal: Positive for arthralgias and back pain. Negative for neck pain. Neurological: Negative for seizures and headaches. Psychiatric/Behavioral: Negative for confusion. The patient is not nervous/anxious. No results found for this or any previous visit (from the past 336 hour(s)). Vitals BP 106/74 (BP Location: Left arm, Patient Position: Sitting) Pulse 99 Temp 37.1 ??C (98.7 ??F) (Oral) Ht 157.5 cm (5' 2 ) Wt 85 kg (187 lb 8 oz) SpO2 97% BMI 34.29 kg/m?? Physical Exam Constitutional: Appearance: She is well-developed. Cardiovascular: Rate and Rhythm: Normal rate. Rhythm irregular. Heart sounds: Murmur heard. Systolic murmur is present with a grade of 2/6. Pulmonary: Effort: Pulmonary effort is normal. Breath sounds: Normal breath sounds. Abdominal: General: Bowel sounds are normal. Palpations: Abdomen is soft. Skin: General: Skin is warm and dry. Neurological: Mental Status: She is alert and oriented to person, place, and time. Psychiatric: Speech: Speech normal. Assessment/Plan Diagnoses and all orders for this visit: Essential hypertension (I10) (Primary) - med change, improved History of CVA (cerebrovascular accident) (Z86.73) - CTs reviewed. No current aspirin therapy. Some residual fatigue. Otherwise doing most normal activity. Paroxysmal atrial fibrillation (CMS/HCC) (HCC) (I48.0) - he sees Cardiology. On Eliquis. Aortic stenosis. Echo reviewed. Type 2 diabetes mellitus without complication, without long-term current use of insulin (CMS/HCC) (HCC) (E11.9) - blood sugars controlled Mood stable, on Proxac continue dose. Diet exercise. Counseling as indicated. Keep ongoing review and follow-up. Return in about 3 months (around 01/01/2024), or if symptoms worsen or fail to improve. Cuba Larsen MD Orders Placed This Encounter Ambulatory referral to Podiatry Standing Status: Future Standing Expiration Date: 04/02/2024 Referral Priority: Routine Referral Type: Consultation Referral Reason: Specialty Services Required Referral Location: External Order Referred to Provider: Brandon Castillo DPM Requested Specialty: Podiatry Number of Visits Requested: 1 documented in this encounter Plan of Treatment Scheduled Referrals Name Type Priority Associated Diagnoses Order Schedule Ambulatory referral to Podiatry Outpatient Referral Routine [place] Expected: 10/02/2023, Expires: 04/02/2024 documented as of this encounter Visit Diagnoses Diagnosis Essential hypertension- Primary Unspecified essential hypertension History of CVA (cerebrovascular accident) Transient ischemic attack (TIA), and cerebral infarction without residual deficits Paroxysmal atrial fibrillation (CMS/HCC) (HCC) Atrial fibrillation Type 2 diabetes mellitus without complication, without long-term current use of insulin ([place]/HCC) (HCC) [place] documented in this encounter Discontinued Medications Medication Sig Discontinue Reason Start Date End Da te [id number]-gbdz-FA-lutein 8 mg iron-400 mcg-300 mcg tablet Take by mouth Therapy completed 10/01/2023 documented as of this encounter Care Teams Design Intern Relationship Specialty Start Date End Date Cuba Larsen MD PCP - General Family Medicine 01/23/22 Chris Mendes MD Referring Physician Cardiology 12/23/21 Keli Orozco, heel sprayer Failure Coordinator Transplant 04/15/23 Tami Mcknight, heel sprayer Failure Coordinator Cardiology 09/14/23 documented as of this encounter
--- OUTSIDE RECORDS SUMMARY | 2024-03-13 01:08 | XMS_ITS | Encounter Summary ---
Author Organization [facility] Healthcare Address [address] [place] [address] Care Team Providers Care Histologic Aide Name Role Phone Chris Mendes MD Unavailable [phone] Cuba Larsen MD Primary Care Provider Keli Orozco RN Unavailable Unavailable Tami Mcknight RN Unavailable Unavailab le Reason for Visit * Auth/Cert (Routine) Specialty Diagnoses / Procedures Referred By Contac t Referred To Contact Diagnoses Primary hypertension [...] Expiration Date Visits Re quested Visits Authorized [id number] 1 1 Encounter Details Date Type Department Care Team (Late st Contact Info) Description 12/09/2023 3:15 PM CDT Anesthesia Event [facility] Operating Room [address] [place] [address] Endy Shanks MD [address] [facility] [address] [place] [address] Darryl Zaragoza, LM [address] [facility] [phone] [place] [address] Anesthesia Record Procedure Summary Procedure Name Responsible Anesthesiologist Anesthesia Start Time Anesthesia Stop Time OPEN REDUCTION INTERNAL FIXATION LEFT INTERTROCHANTERIC FEMUR FRACTURE (Left: Lower Extremity) Endy Shanks MD 12/09/23 1515 12/09/23 1748 Events Date Time Event Comment 12/09/2023 1337 In Preop 1448 1515 An Start 1518 Quick Note Pt received LR 800 cc in Preop. 1520 In Room 1520 An Start Data 1526 An Induction The patient was reevaluated immediately before moderate or deep sedation use and before anesthesia induction. 1529 An Intubation 1538 Block Placed 1551 Anesthesia Ready 1615 Proc Start 1615 Incision Start 1727 An Extubation 1732 Proc Fin 1732 an stop data 1735 Out of Room 1743 Handoff to RN I completed my handoff to the receiving nurse during which we: 1. Patient identified 2. Responsible provider identified 3. Pertinent medical history reviewed 4. Procedure type and surgical course discussed 5. Intraoperative anesthetic management and any significant issues discussed 6. Expectations and concerns for postop period discussed 7. Questions solicited from receiving nurse 8. Patient disposition at the time of handoff: PACU 1748 An Stop Meds Name Total lidocaine (cardiac) syringe 2 % 60 mg propofol 100 mg fentaNYL 100 mcg rocuronium 70 mg phenylephrine 100 mcg/mL 800 mcg ondansetron PF (ZOFRAN) 2 mg/mL injectio n 4 mg ceFAZolin 2,000 mg BUPivacaine 0.25% PF 30 mL phenylephrine infusion (100 mcg/mL) 0.25 mg sugammadex 200 mg Lactated Ringer's (LR) infusion 200 mL LR 300 mL * Agents Name O2% N2O O2 N2O Air Sevoflurane Inspired Sevoflurane * Blood No blood administrations on file. Lines, Drains, and Airways Type Details Placement Removal Wound 12/09/23; 1708; N; Incision; Thigh; Left, Lateral 12/09/23 1708 by Uri Willams RN RETIRED Surgical Site 08/07/23; 1310; Anterior, Proximal, Right; Thigh; right femoral access; 12/14/23; 1838 08/07/23 1310 by Molly Wynne RN 12/14/23 1838 by Aron Perez RN Peripheral IV Placement Date: 12/08/23; Placement Time: 1143; Existing LDA Placed by: EMS; Catheter Size: 18 G; Orientation: Anterior, Left, Proximal; Location: Forearm; Removal Date: 12/16/23; Removal Time: 1149; Removal Reason: Discharge 12/08/23 1143 by Юлия Gale RN 12/16/23 1149 by Minerva Marcano RN Peripheral IV Placement Date: 12/09/23; Placement Time: 1543; Catheter Size: 18 G; Orientation: Right; Location: Wrist; Site Prep: Alcohol; Inserted by: Shagufta Arshad; Insertion Attempts: 1; Removal Date: 12/16/23; Removal Time: 1149; Removal Reason: Discharge 12/09/23 1543 by Shagufta Finch CRNA 12/16/23 1149 by Minerva Marcano RN ETT Placement Date: 12/09/23; Placement Time: 162 (created via procedure documentation); Mask Ventilation: 1; Technique: Video laryngoscopy; Type: ETT - single; Single Lumen Tube Size: 7 mm; Cuffed: Yes; Laryngoscope: Yaquelin; Blade Size: 3; Location: Oral; Insertion Attempts: 1; Placement Verification: Auscultation, Capnometry; Removal Date: 12/09/23; Removal Time: 17212/09/23 1626 by Shagufta Finch CRNA 12/09/23 1727 by Shagufta Finch CRNA Arterial Line Placement Date: 12/09/23; Placemnt Time: 162 (created via procedure documentation); Removal Date: 12/09/23; Removal Time: 2024; Removal Reason: Per order 12/09/23 162 by Shagufta Finch CRNA 12/09/232024 by Mahogany France RN documented in this encounter Social History Tobacco [...] on file 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 Gender Identity Not on file Sexual Orientation Not on file documented as of this encounter OR Notes * Anesthesia Postprocedure Evaluation - Jermaine Sanchez MD - 12/09/2023 7:54 PM CDT Patient: Prema Pearce Procedure Summary Date: 12/09/23 Room / Location: [facility] OR POD 2 ROOM [facility] / [facility] OR POD 2 Anesthesia Start: 1515 Anesthesia Stop: 174 Procedure: OPEN REDUCTION INTERNAL FIXATION LEFT INTERTROCHANTERIC FEMUR FRACTURE (Left: Lower Extremity) Diagnosis: Closed nondisplaced intertrochanteric fracture of left femur, initial encounter ([facility]) (Closed nondisplaced intertrochanteric fracture of left femur, initial encounter ([facility]) [S72.145A]) Surgeons: Homer Villalobos MD Responsible Provider: Endy Shanks MD Anesthesia Type: general, PNB - single shot ASA Status: 3 Anesthesia Type: general, PNB - single shot Last vitals BP 97/48 Pulse 90 Temp 36.6 ??C (97.9 ??F) (Oral) Resp 13 SpO2 99% Anesthesia Post Evaluation Patient location during evaluation: PACU Patient participation: complete - patient participated Level of consciousness: fully awake Pain management: satisfactory to patient Airway patency: adequate Evidence of recall: no Cardiovascular status: hemodynamically stable Respiratory status: non-labored ventilation Hydration status: stable Pt is: normothermic Nausea/Vomiting status: none No notable events documented. * Anesthesia Procedure Notes - Shagufta Finch CRNA - 12/09/2023 4:27 PM CDT Associated Order(s): Arterial Line Arterial Line Patient location: OR Indication: continuous blood pressure monitoring Staff: Supervising provider: Endy Shanks MD Placed by: INSOLE REINFORCER: Shagufta Finch CRNA Resident: Kevin Larios Procedure prep: Prep solution: chlorhexadine/alcohol Arterial line: Catheter size: 20 gauge Catheter type: wire-guided catheter Site: radial artery Line secured: tape and Tegaderm Results: good waveform and good blood return Number of attempts: 1 Assessment: Other: GETA * Anesthesia Procedure Notes - Shagufta Finch CRNA - 12/09/2023 4:26 PM CDT Associated Order(s): Arterial Line Arterial Line Patient location: OR * Anesthesia Procedure Notes - Shagufta Finch CRNA - 12/09/2023 4:25 PM CDT Associated Order(s): Airway Airway Patient location: OR Urgency: elective Indications for airway management: anesthesia Difficult airway: no Staff: Supervising provider: Endy Shanks MD Placed by: INSOLE REINFORCER: Shagufta Finch CRNA Emergent airway documentation: Risks and benefits discussed: yes Consent obtained: yes Consent given by: patient Airway prep: Preoxygenated: yes Patient position: sniffing Mask difficulty assessment: 1 - vent by mask Sedation level during airway: GA Final airway details: Final airway type: endotracheal airway Tube type: ETT ETT size: 7.0 mm Cuffed: yes Technique used for successful ETT placement: video laryngoscopy Devices/Methods used in placement: stylet Insertion site: oral Blade type: Yaquelin Video blade type: Kenney Blade size: 3 Cormack-Lehane (video): grade I - full view of glottis Cuff inflated with: air ETT to lips: 22 cm Placement verified by: auscultation and CO2 detection Airway secured with: silk tape Number of attempts: 1 * Anesthesia Procedure Notes - Endy Shanks MD - 12/09/2023 4:10 PM CDTAssociated Order(s): Peripheral Block Images from the original note were not included. Peripheral Block Patient location during procedure: pre-op holding Reason for block: post-op pain management per surgeon request Ultrasound image in chart or stored: yes Block type: single shot Laterality: left Block type: fascia iliaca nerve block Other block type: FABBY block Staff: Placed by: Anesthesiologist: Endy Shanks MD Procedure prep: Preprocedure checklist: patient identified, procedure contraindications assessed, site marked, procedure consent, surgical consent, IV checked, risks, benefits and alternatives discussed, monitors and equipment checked and timeout performed Patient position: supine Procedure performed while patient: sedate with meaningful contact Monitoring: oximetry Supplemental O2: nasal cannula Prep solution: chlorhexidine/alcohol Skin infiltrated with lidocaine 1%: yes Peripheral nerve block: Technique: ultrasound guided Needle type: short-bevel and echogenic Needle gauge: 21 G Needle length: 80 mm Injection assessment: injection made incrementally with constant monitoring, local visualized surrounding nerve on ultrasound, negative aspiration for heme, no paresthesias noted, normal resistance to injection and see flowsheet for medication details Assessment: Block success: full evaluation pending Events: patient tolerated procedure well with no complications * Anesthesia Preprocedure Evaluation - Endy Shanks MD - 12/09/2023 8:03 AM CDT Images from the original note were not included. [facility] Planning Preoperative Evaluation Record Evaluation type/location: IPAP at [facility] Planned procedure site: [facility] OR (Pods 2/3/5/[facility]) Date: 12/09/23 Anesthesia Evaluation Prema Pearce is a 83 y.o. female INTRAMEDULLARY NAILING FEMUR - ANTEGRADE - INTERTROCHANTERIC (Left: Lower Extremity) OPEN REDUCTION INTERNAL FIXATION - FEMUR (Left: Thigh) Pre-Op Diagnosis Codes: * Closed nondisplaced intertrochanteric fracture of left femur, initial encounter ([facility]) [S72.145A] HISTORY HPI 83 year old female being evaluated for intramedullary nailing femur, ORIF femur for closed nondisplaced intertrochanteric of left femur with PMH CVA3/2021 and 08/07/2023, both managed via mechanical thrombectomy Past Medical History Information obtained from: patient and chart. Information obtained during: In Person Neurological + CVA/Stroke (right MCA territory ischemic stroke-07/2023two embolic CVAs in the setting of brief interruption of Eliquis, on the first occasion held for a surgery and more recently she had missed a couple doses) Number of CVA episodes: 2. Date of last CVA: 07/2023. Pertinent negatives: seizures; neuromuscular disease; TIA; CEA; dementia/mild cognitive impairment and carotid artery stent Cardiovascular + Hypertension + CAD + [place] + CHF (TTE 07/2023) Diastolic function: unspecified dysfunction LVEF: 60-70%. + Current valvular disease - - moderate; MR - mild; + Atrial fibrillation/flutter (on Eliquis and beta blcoker) - Prior electrical cardioversion. + DVT/PE (after knee surgery while at rehab PE and DVT 2019) Number of DVT/PE episodes: 1. Last VTEdate: 2019. Pertinent negatives: CABG ; valve replacement; arrhythmia; pacemaker/ICD; PVD; drug-eluting stent(s); bare metal stent(s) and coronary angioplasty Comments: Dr. 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 Recommend Lovenox bridge for Meghana interruption in the future, and I also wonder if she would benefit from left atrial appendage closure procedure such as Watchman. We will discuss with Dr. Mendes and consider referral to discuss. 3. Nonischemic cardiomyopathy LVEF normal on recent TTE. She is euvolemic and NYHA class I. Continue medical therapy with losartan, carvedilol, and spironolactone. Takes lasix infrequently PRN. Respiratory + Sleep apnea (AYAD) Prescribed device: PAP compliant. + Pulmonary hypertension Echo PA systolic: 39. Pertinent negatives: COPD; asthma; no O2 use outside the hospital; non-smoker and no tracheostomy Hepatic / Heme + History of anemia (H/H 11.3/35) Pertinent negatives: liver disease; history of thrombocytopenia and history of Gian positive Gastrointestinal Pertinent negatives: GERD and hiatal hernia Renal / + Renal disease (cr 0.63 cr cl 42.9) - CKD Pertinent negatives: dialysis and nephrolithiasis Musculoskeletal/Pain Pertinent negatives: chronic pain; chronic opioid use and previous treatment for opioid use disorder Endocrine / Other + Diabetes mellitus (on metformin, glipizide) - Diabetes type 2. Pt reported HgA1c: 6.1. Pt reported HgA1c date: 07/2023. + Thyroid disease (has nodules have been bx benign) - hypothyroidism + Obesity (BMI >30) (BMI 34.18) Pertinent negatives: cancer history; rheumatological disease and transplanted organ Functional Capacity Functional capacity: <4 METs Comments: Walks around home without assistance but admits to using furniture for balance - This injury was by missing a step at her home Review of Systems Pertinent negatives: productive cough; wheezing; SOB; recent cold/flu; fever; chest pain; palpitations; orthopnea; pedal edema; PND; heavy menses; Sickle Cell disease/trait; previous transfusion; transfusion reaction; melena/hematochezia; easy bruising; bleeding problems; syncope; dizziness; muscleweakness; chronic pain; numbness/tingling; hard of hearing; vision loss; heartburn; nausea; dysphagia; diarrhea; dentures/partials; chipped/loose teeth; abdominal pain; diaphoresis and no unexpected weight change PAT Summary and Plans Initial preoperative evaluation discussed with: Davin Valdes MD Additional comments: Prema Pearce is a 83 y.o. female who is being evaluated prior to undergoing an intermediate cardiac risk surgery. Revised Cardiac Risk Index factors are (history of CHF andhistory of cerebrovascular disease) for a total RCRI of 2 out of 6. Functional capacity is <4 METs (specifically:walks at home without assistive device , uses furniture for balance ). Obstructive sleep apnea (AYAD) screening status is HIGH RISK due to known AYAD Blood bank needs for day of procedure: T&C 2 unit PRBCs ordered by primary team Reviewed medications and to be managed by primary team. Last dose of Eliquis 12/08/2023 in am - has has CVA x2 with brief interruption of Eliquis last 07/2023 Last dose of Lovenox 12/08/2023 PM dose. Pending labs/tests include: Reviewed CBC WBC 6.5 H/H 11.3/35.0 plate 204. CMP Na 137, Glu 105 K 4.4LU052, CO2 27 Ca 10.0 Alk phos 75, AST 25 Alt 21 Discussed with CPAP attending last Eliquis dose 12/08/2023 in am, has CVA x2 with brief hold of Eliquis last 07/2023, CHF EF 66% per last TTE 07/2023, Mod ASf/w Dr Mendes . Per note ortho aware of lastdose of Eliquis. Preoperative evaluation performed by Raiza Norwood NP on 12/09/23 at 8:49 AM. IPAP assessment complete . Follow up note Discussed with Ortho trauma Dr. Zamudio that last dose of Eliquis was 12/08/2023 , just an FYI .Team will make sure surgeon is aware. Lovenox was started on admission last dose 12/08/2023 PM. Follow-up completed by: Raiza Norwood NP on 12/09/23 at 11:14 AM IPAP complete Discussed with: Davin Valdes MD Patient Active Problem List Diagnosis Date Noted Discharge planning issues 12/09/2023 Encounter for medication review 12/09/2023 Closed displaced fracture of left femoral neck (HCC) 12/08/2023 Closed nondisplaced intertrochanteric fracture of left femur (CMS/HCC) (HCC) 12/08/2023 Hyperlipidemia 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 (CMS/HCC) ([facility]) 10/11/2021 Essential tremor History of nephrolithiasis 03/21/2021 Pica in adults 08/21/2020 Thyroid nodule 08/21/2020 Moderate episode of recurrent major depressive disorder (HCC) 08/21/2020 AYAD on CPAP 08/21/2020 Gastro-esophageal reflux disease without esophagitis 06/05/2019 WAI (generalized anxiety disorder) 06/05/2019 Slow transit constipation 06/05/2019 Acquired hypothyroidism 05/31/2019 Type 2 diabetes mellitus without complications ([facility]) ([facility]) 05/31/2019 Essential hypertension 05/31/2019 Presence of left artificial knee joint 05/25/2019 Paroxysmal atrial fibrillation ([facility]) ([facility]) 08/18/2017 Past Medical History: Diagnosis Date Adrenal nodule ([facility]) Anxiety Aortic stenosis, moderate Cardiomyopathy ([facility]) Diabetes mellitus ([facility]) GERD (gastroesophageal reflux disease) Heart murmur HFrEF (heart failure with reduced ejection fraction) ([facility]) ([facility]) Hyperlipidemia Hypothyroidism Insomnia Mitral regurgitation NSTEMI (non-ST elevated myocardial infarction) ([facility]) ([facility]) Obesity AYAD on CPAP Patellar sleeve fracture of left knee PONV (postoperative nausea and vomiting) Pulmonary embolism ([facility]) Sleep apnea Zenker's diverticulum Past Surgical History: Procedure Laterality Date BREAST LUMPECTOMY CHOLECYSTECTOMY HAND SURGERY Left plate & screws HYSTERECTOMY INCISION AND DRAINAGE FEMUR Left 05/22/2019 KIDNEY STONE SURGERY OB History No obstetric history on file. Allergies Allergen Reactions Amlodipine Shortness of breath Prasanth Inhibitors Cough Reaction: COUGH, Citalopram Lisinopril Lisinopril-Hydrochlorothiazide Dizziness and Nausea only Dizzy, nauseated Med List Status: Provider Complete Set By: Emy Sanchez NP at 12/09/2023 6:08 AM Taking? Last Dose Start Date End Date Provider ALPRAZolam (XANAX) 0.5 mg tablet -- 11/06/23 -- Cuba Larsen MD Take 1 tablet (0.5 mg total) by mouth 2 (two) times a day as needed for anxiety Notes: Not to exceed 5 additional fills before 01/02/2024 apixaban (Eliquis) 5 mg tablet -- 08/11/23 -- Ivonne Perez MD Take 1 tablet (5 mg total) by mouth 2 (two) times a day blood glucose diagnostic (glucose blood) strip -- 03/19/23 03/18/24 Cuba Larsen MD One strip daily to check glucose blood-glucose meter [facility] -- 03/19/23 -- Cuba Larsen MD Use daily or as directed for monitoring of diabetes. CALCIUM CARBONATE ORAL -- -- -- Cameron Pike MD carvediloL (COREG) 25 mg tablet -- 10/13/23 -- Chris Mendes MD Take 2 tablets (50 mg total) by mouth 2 (two) times a day with meals Notes: Dose increase cholecalciferol (VITAMIN D-3) 2000 unit tablet -- -- -- Cameron Pike MD FLUoxetine (PROzac) 20 mg capsule -- 09/02/23 -- Cuba Larsen MD Take 1 capsule (20 mg total) by mouth daily furosemide (LASIX) 40 mg tablet -- -- -- Cameron Pike MD glipiZIDE (GLUCOTROL) 10 mg tablet -- 11/19/23 -- Cuba Larsen MD TAKE 1 TABLET BY MOUTH TWICE A DAY BEFORE BREAKFAST AND LUNCH lancets [facility] -- 03/19/23 -- Cuba Larsen MD 1 each by other route daily levothyroxine (SYNTHROID) 50 mcg tablet -- 11/19/23 -- Cuba Larsen MD TAKE 1 TABLET BY MOUTH EVERY DAY losartan (COZAAR) 100 mg tablet -- 06/18/23 -- Chris Mendes MD TAKE 1 TABLET BY MOUTH EVERY DAY melatonin 5 mg tablet -- 08/10/23 -- Ivonne Perez MD Take 1 tablet (5 mg total) by mouth nightly metFORMIN (GLUCOPHAGE) 500 mg tablet -- 09/07/23 -- Cuba Larsen MD TAKE 1 TABLET BY MOUTH TWICE A DAY WITH FOOD rosuvastatin (CRESTOR) 20 mg tablet -- 09/02/23 -- Chris Mendes MD TAKE 1 TABLET BY MOUTH EVERY DAY spironolactone (ALDACTONE) 50 mg tablet -- 11/02/23 -- Buechler, Racquel H., PREMIUM NOTE INTEREST CALCULATOR CLERK Take 1 tablet (50 mg total) by mouth daily Notes: Dose increase Current Facility-Administered Medications: acetaminophen (TYLENOL) tablet 1,000 mg, 1,000 mg, oral, Q6H, 1,000 mg at 12/09/23 0543 ALPRAZolam (XANAX) tablet 0.5 mg, 0.5 mg, oral, BID PRN [Held by Provider] apixaban (ELIQUIS) tablet 5 mg, 5 mg, oral, BID carvediloL (COREG) tablet 50 mg, 50 mg, oral, BID with meals (bkfst, dinner) [Held by Provider] enoxaparin (LOVENOX) syringe 30 mg, 30 mg, subcutaneous, Q12H MISHA, 30 mg at 12/08/23 2336 FLUoxetine (PROzac) capsule 20 mg, 20 mg, oral, Daily furosemide (LASIX) tablet 40 mg, 40 mg, oral, Daily HYDROmorphone (DILAUDID) injection 0.5 mg, 0.5 mg, intravenous, Q2H PRN, 0.5 mg at 12/08/23 2226 labetaloL (NORMODYNE,TRANDATE) injection 10 mg, 10 mg, intravenous, Once PRN levothyroxine (SYNTHROID) tablet 50 mcg, 50 mcg, oral, Daily lidocaine (ASPERCREME) 4 % patch 1 patch, 1 patch, transdermal, Q24H, 1 patch at 12/08/23 1858 losartan (COZAAR) tablet 100 mg, 100 mg, oral, Daily ondansetron (ZOFRAN) injection 4 mg, 4 mg, intravenous, Once oxyCODONE (ROXICODONE) tablet 5 mg, 5 mg, oral, Q4H PRN polyethylene glycol (MIRALAX) packet 17 g, 17 g, oral, Daily rosuvastatin (CRESTOR) tablet 20 mg, 20 mg, oral, Daily senna (SENOKOT) tablet 1 tablet, 1 tablet, oral, Daily PRN sodium chloride 0.9% infusion, 75 mL/hr, intravenous, Continuous spironolactone (ALDACTONE) tablet 50 mg, 50 mg, oral, Daily Social History Tobacco Use Smoking Status Never Smokeless Tobacco Never Alcohol Use: Unknown (09/02/2023) AUDIT-C Frequency of Alcohol Consumption: Monthly or less Average Number of Drinks: 1 or 2 Frequency of Binge Drinking: Not on file Substance and Sexual Activity Drug Use Never Family History Problem Relation Age of Onset [...] (Added by Conv) Anesthesia problems Neg Hx Relevant diagnostics: ECG(s): N/A Echocardiogram(s): 07/27/2023 SUMMARY: Rhythm is in AFib. LV cavity size [...] cava. Normal aorta. No significant changes noted. DOPPLER/COLOR FOLOW DOPPLER COMMENTS: No AR seen, Mild MR, moderate , no MS, normal TV, normal PV. Diastolic function: indeterminate Stress test(s): N/A Cardiac catheterization(s): 09/13/2020 [facility] DIAGNOSTIC IMPRESSIONS Mildly elevated left ventricular systolic pressure during the study. Mildly elevated left ventricular end diastolic pressure during the study. There is a gradient across the aortic valve of 20 mmHg on pullback. There is no significant obstruction of the [place] coronary arteries. There is, however, significanttortuosity of the coronary vessels, suggestive of hypertensive heart disease. PFT(s): N/A Vascular studies: N/A Other: 12/08/2023 Ct pelvis WO contrast contrast, CT femur left WO contrast IMPRESSION: Comminuted and mildly impacted intertrochanteric fracture left femur PAT Physical Exam Airway Exam: Mallampati: II Cervical ROM: FROM Cardiovascular Exam: Rate: regular Rhythm: regular Murmur: grade II/ Peripheral edema: trace edema Pulmonary Exam: LCTA EENT Exam: trachea midline Dental Exam: Appears intact Skin Exam: Skin is warm. Turgor is normal. Abdominal exam: Abdomen is soft. Bowel sounds are present. Current state: Patient's current state is cooperative. Line/Drains/Tubes/Devices: Lines in situ (PIV # 16 left ac): Vitals: 12/08/23 2255 12/09/23 0024 12/09/23 0344 BP: (!) 150/102 142/84 136/85 Pulse: 91 86 83 Resp: Temp: 36.6 ??C (97.9 ??F) 36.7 ??C (98.1 ??F) 36.8 ??C (98.2 ??F) SpO2: 99% 95% 97% PT: 12/08/2023: 17.1 sec (H) INR: 12/08/2023: 1.57 (H) APTT: 12/08/2023: 33 sec Hgb A1C: No results found for requested labs within last 30 days. CBC RBC: 12/08/2023: 3.58 M/cumm (L) RDW: No results found for requested labs within last 30 days. MCHC: 12/08/2023: 32.3 g/dL MCH: 12/08/2023: 31.6 pg MCV: 12/08/2023: 97.8 fL (H) Hct: 12/08/2023: 35.0 % (L) Hgb: 12/08/2023: 11.3 g/dL (L) WBC: 12/08/2023: 6.5 K/cumm MPV: 12/08/2023: 9.8 fL Platelets: 12/08/2023: 204 K/cumm RDW CV: 12/08/2023: 14.1 % RDW Sd: 12/08/2023: 50.4 fL (H) BMP Glucose: 12/09/2023: 161 mg/dL Calcium: 12/08/2023: 10.0 mg/dL Sodium: 12/08/2023: 137 mmol/L Potassium: 12/08/2023: 4.9 mmol/L CO2: 12/08/2023: 27 mmol/L Chloride: 12/08/2023: 105 mmol/L BUN: 12/08/2023: 22 mg/dL Creatinine: 12/08/2023: 0.63 mg/dL DOS Physical Exam Medical history, medications, and allergies reviewed. Attestation: This PAT evaluation Airway Exam: Mallampati: II Cervical ROM: FROM TM distance: 3 Cardiovascular Exam: Rate: regular Rhythm: regular Negative for Murmur Negative for peripheral edema JVD negative Pulmonary Exam: LCTA, bilat Coarse breath sounds negative Crackles negative Rhonchi negative EENT Exam: trachea midline Dental Exam: Appears intact Skin Exam: Skin is warm. Capillary refill is < 3 seconds. Turgor is normal. Abdominal Exam: Abdomen is soft. Bowel sounds are present. Current state: Patient's current state is cooperative and interactive. Anesthesia Plan ASA 3 My patient is approved for the Anesthesia Controlled Medication protocol when under care of a INSOLE REINFORCER Planned anesthesia: General and PNB - single shot Team communication plan: oral ET tube Lower extremity: fascia iliaca nerve block Comments: FABBY block Invasive Monitors Planned: Invasive monitors planned: arterial line. Induction: Induction: intravenous. Postoperative Plan: No postoperative mechanical ventilation intended. Patient's planned disposition post procedure is Floor. Informed Consent: Discussed plan with INSOLE REINFORCER. Anesthesia plan and risks discussed with patient. Consent and Attending signature: I and/or my designee have discussed the anesthesia plan, benefits, possible alternatives, parental presence at time of induction (if indicated), and clinically relevant risks that may include dental injury, unintentional awareness, and/or other complications. The patient and/or parent/legal guardian understand, and agree to proceed. All questions answered. documented in this encounter Plan of Treatment Not on file documented as of this encounter Procedures Procedure Name Priority Date/Time Associated Diagnosis Comments NC AN PROCEDURE PLACEHOLDER Routine 12/09/2023 4:27 PM CDT NC AN PROCEDURE PLACEHOLDER Routine 12/09/2023 4:26 PM CDT NC AN PROCEDURE PLACEHOLDER Routine 12/09/2023 4:25 PM CDT NC AN ELECTIVE ENDOTRACHEAL AIRWAY Routine 12/09/2023 4:25 PM CDT NC AN PROCEDURE PLACEHOLDER Routine 12/09/2023 4:10 PM CDT documented in this encounter Results * NC AN PROCEDURE PLACEHOLDER (12/09/2023 4:27 PM CDT) Narrative Shagufta Finch CRNA - 12/09/2023 4:27 PM CDT Shagufta Finch CRNA ? 12/09/2023 ??4:29 PM Arterial Line Patient location: OR Indication: continuous blood pressure monitoring Staff: Supervising provider: Endy hSanks MD Placed by: INSOLE REINFORCER: Shagufta Finch CRNA Resident: Kevin Larios Procedure prep: Prep solution: chlorhexadine/alcohol Arterial line: Catheter size: 20 gauge Catheter type: wire-guided catheter Site: radial artery Line secured: tape and Tegaderm Results: good waveform and good blood return Number of attempts: 1 Assessment: Other: GETA us Endy Shanks MD ANESTHESIA ORDERABLES Final Result * NC AN PROCEDURE PLACEHOLDER (12/09/2023 4:26 PM CDT) Narrative Shagufta Finch CRNA - 12/09/2023 4:26 PM CDT Shagufta Finch INSOLE REINFORCER ? 12/09/2023 ??4:27 PM Arterial Line Patient location: OR us Endy Shanks MD ANESTHESIA ORDERABLES Final Result * NC AN ELECTIVE ENDOTRACHEAL AIRWAY, NC AN PROCEDURE PLACEHOLDER (12/09/2023 4:25 PM CDT) Narrative Shagufta Finch CRNA - 12/09/2023 4:25 PM CDT Shagufta Finch CRNA ? 12/09/2023 ??4:26 PM Airway Patient location: OR Urgency: elective Indications for airway management: anesthesia Difficult airway: no Staff: Supervising provider: Endy Shanks MD Placed by: INSOLE REINFORCER: Shagufta Finch CRNA Emergent airway documentation: Risks and benefits discussed: yes Consent obtained: yes Consent given by: patient Airway prep: Preoxygenated: yes Patient position: sniffing Mask difficulty assessment: 1 - vent by mask Sedation level during airway: GA Final airway details: Final airway type: endotracheal airway Tube type: ETT ETT size: 7.0 mm Cuffed: yes Technique used for successful ETT placement: video laryngoscopy Devices/Methods used in placement: stylet Insertion site: oral Blade type: Yaquelin Video blade type: Kenney Blade size: 3 Cormack-Lehane (video): grade I - full view of glottis Cuff inflated with: air ETT to lips: 22 cm Placement verified by: auscultation and CO2 detection Airway secured with: silk tape Number of attempts: 1 us Endy Shanks MD ANESTHESIA ORDERABLES Final Result * NC AN PROCEDURE PLACEHOLDER (12/09/2023 4:10 PM CDT) Narrative Endy Shanks MD - 12/09/2023 4:10 PM CDT Endy Shanks MD ? 12/10/2023 ??2:28 PM Peripheral Block Patient location during procedure: pre-op holding Reason for block: post-op pain management per surgeon request Ultrasound image in chart or stored: yes Block type: single shot Laterality: left Block type: fascia iliaca nerve block Other block type: FABBY block Staff: Placed by: Anesthesiologist: Endy Shanks MD Procedure prep: Preprocedure checklist: patient identified, procedure contraindications assessed, site marked, procedure consent, surgical consent, IV checked, risks, benefits and alternatives discussed, monitors and equipment checked and timeout performed Patient position: supine Procedure performed while patient: sedate with meaningful contact Monitoring: oximetry Supplemental O2: nasal cannula Prep solution: chlorhexidine/alcohol Skin infiltrated with lidocaine 1%: yes Peripheral nerve block: Technique: ultrasound guided Needle type: short-bevel and echogenic Needle gauge: 21 G Needle length: 80 mm Injection assessment: injection made incrementally with constant monitoring, local visualized surrounding nerve on ultrasound, negative aspiration for heme, no paresthesias noted, normal resistance to injection and see flowsheet for medication details Assessment: Block success: full evaluation pending Events: patient tolerated procedure well with no complications us Endy Shanks MD ANESTHESIA ORDERABLES Edited Result - Final documented in this encounter Visit Diagnoses Not on filedocumented in this encounter Administered Medications Inactive Administered Medications - up to 3 most recent administrations Medication Order MAR Action Action Date Dose Rate Site BUPivacaine (MARCAINE) 0.25 % (2.5 mg/mL) preservative free injection perineural, As needed, Starting on Thu12/09/23 at 1611, Anesthesia Intra-op Given 12/09/2023 4:11 PM CDT 30 mL ceFAZolin (ANCEF) injection intravenous, Administer over 3 Minutes, As needed, Starting on Thu12/09/23 at 1557, Anesthesia Intra-op Given 12/09/2023 3:57 PM CDT 2,000 mg fentaNYL (SUBLIMAZE) preservative free injection intravenous, As needed, Starting on Thu12/09/23 at 1526, Anesthesia Intra-op Given 12/09/2023 3:26 PM CDT 100 mcg Lactated Ringer's (LR) infusion 30 mL/hr, intravenous, Continuous, Starting on Thu12/09/23 at 1415, Pre-Op New Bag 12/09/2023 3:20 PM CDT Lactated Ringer's (LR) infusion intravenous, Continuous PRN, Starting on Thu12/09/23 at 1543, Anesthesia Intra-op New Bag 12/09/2023 3:43 PM CDT lidocaine (cardiac) (XYLOCAINE) preservative free injection intravenous, As needed, Starting on Thu12/09/23 at 1526, Anesthesia Intra-op, Indications: Ventricular ArrhythmiasIndications:Ventricul ar Arrhythmias Given 12/09/2023 3:26 PM CDT 60 mg ondansetron (ZOFRAN) injection intravenous, Administer over 2 Minutes, As needed, Starting on Thu12/09/23 at 1653, Anesthesia Intra-op Given 12/09/2023 4:53 PM CDT 4 mg phenylephrine (LAZARO-SYNEPHRINE) 1 mg/10 mL (100 mcg/mL) in sodium chloride 0.9% (premix) intravenous, As needed, Starting on Thu12/09/23 at 1533, Anesthesia Intra-op Given 12/09/2023 5:05 PM CDT 200 mcg Given 12/09/2023 4:07 PM CDT 200 mcg Given 12/09/2023 3:52 PM CDT 200 mcg phenylephrine (LAZARO-SYNEPHRINE) 5 mg/50 mL (100 mcg/mL) in sodium chloride 0.9% (premix) intravenous, Continuous PRN, Starting on Thu12/09/23 at 1634, Anesthesia Intra-op Rate/Dose Change 12/09/2023 4:37 PM CDT 0.2 mcg/kg/min 10.176 mL/hr New Bag 12/09/2023 4:34 PM CDT 0.3 mcg/kg/min 15.264 mL /hr propofoL (DIPRIVAN) 10 mg/mL IV intravenous, As needed, Starting on Thu12/09/23 at 1526, Anesthesia Intra-op Given 12/09/2023 3:26 PM CDT 100 mg rocuronium (ZEMURON) injection intravenous, As needed, Starting on Thu12/09/23 at 1526, Anesthesia Intra-op Given 12/09/2023 3:41 PM CDT 20 mg Given 12/09/2023 3:26 PM CDT 50 mg sugammadex (BRIDION) 100 mg/mL intravenous solution intravenous, As needed, Starting on Thu12/09/23 at 1725, Anesthesia Intra-op Given 12/09/2023 5:25 PM CDT 200 mg documented in this encounter Care Teams Histologic Aide Relationship Specialty Start Date End Date Cuba Larsen MD PCP - General Family Medicine 01/23/22 Chris Mendes MD Referring Physician Cardiology 12/23/21 Keli Orozco, steel fabricator Failure Coordinator Transplant 04/15/23 Tami Mcknight steel fabricator Failure Coordinator Cardiology 09/14/23 documented as of this encounter
--- OUTSIDE RECORDS SUMMARY | 2024-03-13 01:08 | XMS_ITS | Encounter Summary ---
Author Organization [facility] Address [address] [place] [address] Phone Care Team Providers Care Rake Operator Name Role Phone Chris Mendes MD Unavailable Cuba Larsen MD Primary Care Provider [phone] Keli Orozco RN Unavailable Unavailable Tami Mcknight RN Unavailable Unavailab le Reason for Visit * Reason Onset Date Comments lab results, recs 11/03/2023 Encounter Details Date Type Department Care Team (Late st Contact Info) Description 11/03/2023 Telephone [facility] Cardiology [address] [facility] Advanced Medicine 8th [place] [address] [place] [id number] Racquel Abebe NP [address] [place] [address] lab results, recs Social History Tobacco Use Types Packs/Day Years [...] Telephone Encounter - Cierra Sandy RN - 11/18/2023 10:24 AM CDT Called pt for lab reminder and BP update. LMOR asking for return call, and having blood work done at [facility]. * Telephone Encounter - Cierra Sandy RN - 11/03/2023 12:32 PM CDT LMOR noting results. Advised she should increase Spironolactone as planned with repeat blood work at [facility] in 2 weeks time. Order placed. Encouraged return call with any questions/concerns. * Telephone Encounter - Cierra Sandy RN - 11/03/2023 12:28 PM CDT ----- Message from Racquel Abebe NP sent at 11/03/2023 12:21 PM CDT ----- BMP looks fine but I believe done too soon- robert increased to 50mg yesterday, needs BMP 1-2 weeks after dose increase From office note: Increase spironolactone to 50mg daily. Check BMP blood test 1-2 weeks after increasing this dose. Order is in at [facility]. Call with blood pressure update in 1-2 weeks. documented in this encounter Plan of Treatment Not on file documented as of this encounter Procedures Procedure Name Priority Date/Time Associated Diagnosis Comments BASIC METABOLIC PANEL Routine 11/27/2023 1:23 PM CDT Nonischemic cardiomyopathy (CMS/HCC) (HCC) Chronic combined systolic (congestive) and diastolic (congestive) heart failure (HCC) Acute on chronic systolic CHF (congestive heart failure) (CMS/HCC) (HCC) documented in this encounter Results * Basic metabolic panel (11/27/2023 1:23 PM CDT) Glucose 80 65 - 99 mg/dL [facility] Comment: ? Fasting reference interval BUN 18 7 - 25 mg/dL [facility] Creatinine 0.67 0.60 - 0.95 mg/dL [facility] eGFR 87 > OR = 60 mL/min/1.7 3m2 [facility] BUN/creat ratio SEE NOTE: 6 - 22 (calc) [facility] Comment: ?? Not Reported: BUN and Creatinine are within ?? reference range. ? Sodium 137 135 - 146 mmol/L [facility] Potassium, pl 4.6 3.5 - 5.3 mmol/L [facility] Chloride 104 98 - 110 mmol/L [facility] Comment: Verified by repeat analysis. CO2 24 20 - 32 mmol/L [facility] Calcium 9.8 8.6 - 10.4 mg/dL [facility] Blood 11/27/2023 1:23 PM CDT 11/27/2023 1:23 PM CDT Racquel Abebe NP LAB BLOOD ORDERABLES Final R esult [facility] [address] [place] [address] documented in this encounter Visit Diagnoses Diagnosis Nonischemic cardiomyopathy (CMS/HCC) (HCC)- Primary Other primary cardiomyopathies Chronic combined systolic (congestive) and diastolic (congestive) heart failure (HCC) Acute on chronic systolic CHF (congestive heart failure) (CMS/HCC) (HCC) documented in this encounter Care Teams Rake Operator Relationship Specialty Start Date End Date Cuba Larsen MD PCP - General Family Medicine 01/23/22 Chris Mendes MD Referring Physician Cardiology 12/23/21 Keli Orozco, weather forcaster Failure Coordinator Transplant 04/15/23 Tami Mcknight weather forcaster Failure Coordinator Cardiology 09/14/23 documented as of this encounter
--- OUTSIDE RECORDS SUMMARY | 2024-03-13 01:08 | XMS_ITS | Encounter Summary ---
Author Organization [facility] Healthcare Address [address] [place] [address] Care Team Providers Care Master Printer Name Role Phone Chris Mendes MD Unavailable [phone] Cuba Larsen MD Primary Care Provider [phone] Keli Orozco RN Unavailable Unavailable Tmai Mcknight RN Unavailable Unavailab le Encounter Details Date Type Department Care Team (Late st Contact Info) Description 10/13/2023 Telephone [facility] Transplant Heart [address] [address] [address] [id number] [place] [address] Robyn Walker Social History Tobacco Use Types [...] on file 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 documented in this encounter Plan of Treatment Not on file documented as of this encounter Visit Diagnoses Not on filedocumented in this encounter Care Teams Master Printer Relationship Specialty Start Date End Date Cuba Larsen MD PCP - General Family Medicine 01/23/22 Chris Mendes MD Referring Physician Cardiology 12/23/21 Keli Orozco, professor of communication and writing Failure Coordinator Transplant 04/15/23 Tami Mcknight professor of communication and writing Failure Coordinator Cardiology 09/14/23 documented as of this encounter
--- OUTSIDE RECORDS SUMMARY | 2024-03-13 01:08 | XMS_ITS | Encounter Summary ---
Author Organization [facility] Healthcare Address [address] [place] [address] Care Team Providers Care Evp General Counsel Name Role Phone Chris Mendes MD Unavailable [phone] Cuba Larsen MD Primary Care Provider [phone] Keli Orozco RN Unavailable Unavailable Tami Mcknight RN Unavailable Unavailab le Reason for Visit * Reason Onset Date Comments Referral Request 10/07/2023 Encounter Details Date Type Department Care Team (Late st Contact Info) Description 10/07/2023 Telephone [facility] Family Medicine at [address] [place] [address] Cuba Larsen MD [address] [place] [address] Referral Request Social History Tobacco Use [...] on file 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 * Telephone Encounter - Negra Callahan - 10/15/2023 10:47 AM CDT Call Back Caller???s Concern: They are calling on the status of this referral. They saw the patient on 10/08 and are needing this sent as soon as possible. Does message need to be routed? Yes-Action Needed * Telephone Encounter - Irais Vergara - 10/07/2023 12:50 PM CDT Referral Provider Name: Dr. Araceli Johnson Specialty: Neurology Address: [address] [place] [address], Zip: [place] [address] Diagnosis Code/Symptom/Reason Patient is being seen: Z86.73 Date of Appointment: 10/09/23 NPI#: [id number] Tax ID#: [id number] Is insurance in chart up to date? Yes, needing [facility] insurance referral Additional Comments: n/a Does message need to be routed? Yes-Action Needed documented in this encounter Plan of Treatment Not on file documented as of this encounter Visit Diagnoses Not on filedocumented in this encounter Care Teams Evp General Counsel Relationship Specialty Start Date End Date Cuba Larsen MD PCP - General Family Medicine 01/23/22 Chris Mendes MD Referring Physician Cardiology 12/23/21 Keli Orozco, wet suit gluer Failure Coordinator Transplant 04/15/23 Tami Mcknight, wet suit gluer Failure Coordinator Cardiology 09/14/23 documented as of this encounter
--- OUTSIDE RECORDS SUMMARY | 2024-03-13 01:08 | XMS_ITS | Encounter Summary ---
Author Organization [facility] Healthcare Address [address] [place] [address] Care Team Providers Care Stone Setter Name Role Phone Chris Mendes MD Unavailable [phone] Cuba Larsen MD Primary Care Provider [phone] Keli Orozco RN Unavailable Unavailable Tami Mcknight RN Unavailable Unavailab le Reason for Visit * Reason Onset Date Comments Medical Question/Miscellaneous 10/06/2023 Encounter Details Date Type Department Care Team (Late st Contact Info) Description 10/06/2023 Telephone [facility] Family Medicine at [address] [place] [address] Cuba Larsen MD [address] [place] [phone] Medical Question/Miscellaneous Social History Tobacco Use Types [...] on file 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 Does message need to be routed? No documented in this encounter Plan of Treatment Not on file documented as of this encounter Visit Diagnoses Not on filedocumented in this encounter Care Teams Stone Setter Relationship Specialty Start Date End Date Cuba Larsen MD PCP - General Family Medicine 01/23/22 Chris Mendes MD Referring Physician Cardiology 12/23/21 Keli Orozco, geospatial extractor analysis Failure Coordinator Transplant 04/15/23 Tami Mcknight, geospatial extractor analysis Failure Coordinator Cardiology 09/14/23 documented as of this encounter
--- OUTSIDE RECORDS SUMMARY | 2024-03-13 01:08 | XMS_ITS | Encounter Summary ---
Author Organization [facility] Healthcare Address [address] [place] [address] Care Team Providers Care Manual Equipment Mechanic Name Role Phone Chris Mendes MD Unavailable [phone] Cuba Larsen MD Primary Care Provider [phone] Keli Orozco RN Unavailable Unavailable Tami Mcknight RN Unavailable Unavailab le Encounter Details Date Type Department Care Team (Late st Contact Info) Description 10/12/2023 Telephone [facility] Transplant Heart [address] [address] Mail[address] [phone] [place] [address] Anh Ignacio CMA Social History Tobacco Use Types Packs/Day Years [...] on file 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 Gender Identity Not on file Sexual Orientation Not on file documented as of this encounter Ordered Prescriptions Prescription Sig Dispense Quantity Refills Last Filled Start Date End Date carvediloL (COREG) 25 mg tablet Take 2 tablets (50 mg total) by mouth 2 (two) times a day with meals 360 tablet 3 10/13/2023 4 documented in this encounter Miscellaneous Notes * Addendum Note - Keli Orozco RN - 10/13/2023 10:43 AM CDTAddended by: KELI OROZCO on: 10/13/2023 10:43 AM Modules accepted: Orders * Telephone Encounter - Keli Orozco RN - 10/12/2023 1:51 PM CDT Spoke to patient BP the last few days averaging 120-150s/80-90s 144/83 129/89 154/98 170/91 123/98 141/88 I increased her Carvedilol to 25 mg BID last week. BP still running high with a HR of 70-80. 10/13/23: Spoke with Dr Mendes and he wants to increase patients Carvedilol to 50 mg BID. Instructed patient to monitor BP and HR in AM before medications and then again 2-3 hours later. Give our office a call in 2 weeks with numbers. Patient understands * Telephone Encounter - Anh Ignacio CMA - 10/12/2023 10:36 AM CDT Patient seen her Neurology dr this morning and they told her that they want her blood pressure to be lower in the morning. They told patient to call her heart dr to see what she should do. Call back number is [phone] documented in this encounter Plan of Treatment Not on file documented as of this encounter Visit Diagnoses Not on filedocumented in this encounter Discontinued Medications Medication Sig Discontinue Reason Start Date End Da te carvediloL (COREG) 25 mg tablet Take 1 tablet (25 mg total) by mouth 2 (two) times a day with meals Reorder 09/10/2023 10/13/2023 documented as of this encounter Care Teams Manual Equipment Mechanic Relationship Specialty Start Date End Date Cuba Larsen MD PCP - General Family Medicine 01/23/22 Chris Mendes MD Referring Physician Cardiology 12/23/21 Keli Orozco, charter boat captain Failure Coordinator Transplant 04/15/23 Tami Mcknight, charter boat captain Failure Coordinator Cardiology 09/14/23 documented as of this encounter
--- OUTSIDE RECORDS SUMMARY | 2024-03-13 01:08 | XMS_ITS | Encounter Summary ---
Author Organization 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 Was discharged from [facility] about a month ago with a stroke. BP the last few days have been 140-160/100s with HR 70s. Dr Mendes wants her to increase Carvedilol to 25 mg BID. MonitorBP and HR BID and bring blog to appointment on 09/22/23. Patient understands * Telephone Encounter - Robyn Walker - 09/10/2023 10:31 AM CDT Received call from patient needing to speak with nurse coordinator regarding: Concerns with blood pressure being higher than normal Needs return call from nurse coordinator. Call back number [phone] documented in this encounter Plan of Treatment Not on file documented as of this encounter Visit Diagnoses Not on filedocumented in this encounter Discontinued Medications Medication Sig Discontinue Reason Start Date End Da te carvediloL (COREG) 12.5 mg tablet Take 1 tablet (12.5 mg total) by mouth 2 (two) times a day with meals Reorder 10/24/2022 09/10/2023 documented as of this encounter Care Teams Research Associate Quality Control Qc Relationship Specialty Start Date End Date Cuba Larsen MD PCP - General Family Medicine 01/23/22 Chris Mendes MD Referring Physician Cardiology 12/23/21 Keli Orozco, mogul operator Failure Coordinator Transplant 04/15/23 documented as of this encounter
--- OUTSIDE RECORDS SUMMARY | 2024-03-13 01:08 | XMS_ITS | Encounter Summary ---
Author Organization [facility] Address [address] [place] [address] Phone Care Team Providers Care Hoop Driving Machine Operator Name Role Phone Chris Mendes MD Unavailable [phone] Cuba Larsen MD Primary Care Provider [phone] Keli Orozco RN Unavailable Unavailable Tami Mcknight RN Unavailable Unavailab le Encounter Details Date Type Department Care Team (Late st Contact Info) Description 11/27/2023 Telephone [facility] Cardiology [address] 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 * Telephone Encounter - Andressa Ziegler - 11/27/2023 10:47 AM CDT Cinthya/Mis Pt calling to speak with a nurse in regards to reporting blood pressure readings. documented in this encounter Plan of Treatment Not on file documented as of this encounter Visit Diagnoses Not on filedocumented in this encounter Care Teams Hoop Driving Machine Operator Relationship Specialty Start Date End Date Cuba Larsen MD PCP - General Family Medicine 01/23/22 Chris Mendes MD Referring Physician Cardiology 12/23/21 Keli Orozco, exhibits manager Failure Coordinator Transplant 04/15/23 Tami Mcknight RN Heart Failure Coordinator Cardiology 09/14/23 documented as of this encounter
--- OUTSIDE RECORDS SUMMARY | 2024-03-13 01:08 | XMS_ITS | Encounter Summary ---
Author Organization [facility] Address [address] [place] [address] Care Team Providers Care Application Release Manager Name Role Phone Chris Mendes MD Unavailable [phone] Cuba Larsen MD Primary Care Provider [phone] Keli Orozco RN Unavailable Unavailable Tami Mcknight RN Unavailable Unavailab le Reason for Visit * Reason Comments Itching Encounter Details Date Type Department Care Team ([facility] Contact Info) Description 11/03/2023 3:30 PM CDT Office Visit [facility] Family Medicine at [address] [address] Cuba Larsen MD [address] [place] [id number] Pruritus (Primary Dx); Anxiety Social History Tobacco Use Types Packs/Day Years [...] on file 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 Gender Identity Not on file Sexual Orientation Not on file documented as of this encounter Last Filed Vital Signs Vital Sign Reading Time Taken Comments Blood Pressure 118/74 11/03/2023 2:36 PM CDT Pulse 82 11/03/2023 2:36 PM CDT Temperature 36.6 ??C (97.9 ??F) 11/03/2023 2:36 PM CD T Respiratory Rate - - Oxygen Saturation 96% 11/03/2023 2:36 PM CDT Inhaled Oxygen Concentration - - Weight 85 kg (187 lb 8 oz) 11/03/2023 2:36 PM C DT Height 157.5 cm (5' 2 ) 11/03/2023 2:36 PM CDT Body Mass Index 34.29 11/03/2023 2:36 PM CDT documented in this encounter Ordered Prescriptions Prescription Sig Dispense Quantity Refills Last Filled Start Date End Date doxycycline (VIBRAMYCIN) 100 mg capsule Take 1 tablet/capsul e (100 mg total) by mouth 2 (two) times a day for 7 days 14 tablet/capsule 11/06/2023 4 ALPRAZolam (XANAX) 0.5 mg tabletIndications: Anxiety Take 1 tablet (0.5 mg total) by mouth 2 (two) times a day as needed for anxiety 60 tablet 11/06/2023 4 documented in this encounter Progress Notes * Cuba Larsen MD - 11/03/2023 3:30 PM CDT Images from the original note were not included. Subjective/Objective Patient ID: Prema Pearce is a 83 y.o. female. Chief Complaint Itching Three weeks of itching. Arms legs back and abdomen. No fever. No particular rash. Possible high related. No changes in perfumes or dyes or soaps. Daily symptoms. Different spots at times Review of Systems Constitutional: Positive for fatigue. Negative for fever. Respiratory: Negative for cough and shortness of breath. Cardiovascular: Negative for chest pain and leg swelling. Gastrointestinal: Negative for abdominal pain and nausea. Musculoskeletal: Negative for back pain and neck pain. Skin: Positive for rash. Neurological: Negative for seizures and headaches. Psychiatric/Behavioral: Negative for confusion. The patient is not nervous/anxious. Recent Results (from the past 336 hour(s)) Basic metabolic panel Collection Time: 11/02/23 1:28 PM Result Value Ref Range Glucose 128 (H) 65 - 99 mg/dL BUN 19 7 - 25 mg/dL Creatinine 0.76 0.60 - 0.95 mg/dL eGFR 78 > OR = 60 mL/min/1.73m2 BUN/creat ratio SEE NOTE: 6 - 22 (calc) Sodium 138 135 - 146 mmol/L Potassium, pl 4.6 3.5 - 5.3 mmol/L Chloride 103 98 - 110 mmol/L CO2 27 20 - 32 mmol/L Calcium 10.0 8.6 - 10.4 mg/dL Vitals BP 118/74 (BP Location: Right arm, Patient Position: Sitting) Pulse 82 Temp 36.6 ??C (97.9 ??F) (Oral) Ht 157.5 cm (5' 2 ) Wt 85 kg (187 lb 8 oz) SpO2 96% BMI 34.29 kg/m?? Physical Exam Constitutional: Appearance: She is well-developed. Cardiovascular: Rate and Rhythm: Normal rate and regular rhythm. Heart sounds: Normal heart sounds. Pulmonary: Effort: Pulmonary effort is normal. Breath sounds: Normal breath sounds. Abdominal: General: Bowel sounds are normal. Palpations: Abdomen is soft. Skin: General: Skin is warm and dry. Neurological: Mental Status: She is alert and oriented to person, place, and time. Psychiatric: Speech: Speech normal. No obvious hives. Skin otherwise looks normal. Small abscess right groin Assessment/Plan Diagnoses and all orders for this visit: Pruritus (L29.9) (Primary) - triamcinolone (KENALOG) 40 mg/mL injection 40 mg; Inject 1 mL (40 mg total) into the muscle as instructed once Anxiety (F41.9) - ALPRAZolam (XANAX) 0.5 mg tablet; Take 1 tablet (0.5 mg total) by mouth 2 (two) times a day as needed for anxiety 3 weeks symptoms. Concerns would be allergic. Versus hive. Viral Soap and water to clean. Inject Kenalog. For possible allergic. Possible. For small abscess right groin. Doxycycline 100 mg b.i.d. Tylenol ibuprofen as needed. Phone call update 2 weeks ER if symptoms worsen Mildly complex problem pharmaceutical interventions No follow-ups on file. Cuba Larsen MD Orders Placed This Encounter triamcinolone (KENALOG) 40 mg/mL injection 40 mg ALPRAZolam (XANAX) 0.5 mg tablet Sig: Take 1 tablet (0.5 mg total) by mouth 2 (two) times a day as needed for anxiety Dispense: 60 tablet Refill: 0 Not to exceed 5 additional fills before 01/02/2024 documented in this encounter Plan of Treatment Not on file documented as of this encounter Visit Diagnoses Diagnosis Pruritus- Primary Unspecified pruritic disorder Anxiety Anxiety state, unspecified documented in this encounter Administered Medications Inactive Administered Medications - up to 3 most recent administrations Medication Order MAR Action Action Date Dose Rate Site triamcinolone (KENALOG) 40 mg/mL injection 40 mg 40 mg, intramuscular, Once, On Thu11/03/23 at 1630, For 1 doseIndications:Pruritus Given 11/03/2023 3:46 PM CDT 40 mg Right Dorsogluteal/Buttoc k documented in this encounter Discontinued Medications Medication Sig Discontinue Reason Start Date End Da te ALPRAZolam (XANAX) 0.5 mg tabletIndications:Anxiet y Take 1 tablet (0.5 mg total) by mouth 2 (two) times a day as needed for anxiety Duplicate order 11/05/2023 11/06/2023 documented as of this encounter Orders Medications Ordered That Jon ht Not Have Been Administered Count Last Ordered Date First Ordered Date triamcinolone (KENALOG) 40 m g/mL injection 40 mg 1 11/03/2023 documented in this encounter Care Teams Application Release Manager Relationship Specialty Start Date End Date Cuba Larsen MD PCP - General Family Medicine 01/23/22 Chris Mendes MD Referring Physician Cardiology 12/23/21 Keli Orozco, jockey valet Failure Coordinator Transplant 04/15/23 Tami Mcknight jockey valet Failure Coordinator Cardiology 09/14/23 documented as of this encounter
--- OUTSIDE RECORDS SUMMARY | 2024-03-13 01:08 | XMS_ITS | Encounter Summary ---
Author Organization [facility] Address [address] [place] [address] Phone Care Team Providers Care Mail Order Clerk Name Role Phone Chris Mendes MD Unavailable [phone] Cuba Larsen MD Primary Care Provider [phone] Keli Orozco RN Unavailable Unavailable Tami Mcknight RN Unavailable Unavailab le Reason for Referral * Consultation (Routine) - Closed Specialty Diagnoses / Procedures Referred By Contac t Referred To Contact Bone Health Diagnoses Closed nondisplaced intertrochanteric fracture of left femur, initial encounter (FORM[facility]LY [facility]) Homer Villalobos MD [address] [facility] [place] [address] Phone: tel: fax: [facility] (All Locations) Referral ID Status Reason Start Date Expiration Date V isits Requested Visits Authorized [id number] Closed Specialty Services Required 12/09/2023 01/07/2025 1 1 Question Answer Please select the performing region: [facility] (All Locations) [167] # of visits: 1 Comments Fall resulting in L IT fx Encounter Details Date Type Department Care Team (Late st Contact Info) Description 12/09/2023 Orders Only [facility] Orthopaedic Surgery [address] [facility] [address] [place] [address] [place] [address] Homer Villalobos MD [address] [facility] [address] [place] [address] Closed nondisplaced intertrochanteric fracture of left femur, initial encounter (HCC) (Primary Dx) Social History Tobacco Use [...] on file 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 Gender Identity Not on file Sexual Orientation Not on file documented as of this encounter Plan of Treatment Scheduled Referrals Name Type Priority Associated Diagnoses Orde r Schedule Ambulatory referral to Bone Health Outpatient Referral Routine Closed nondisplaced intertrochanteric fracture of left femur, initial encounter (HCC) Expected: 12/23/2023 (Approximate), Expires: 12/08/2024 documented as of this encounter Visit Diagnoses Diagnosis Closed nondisplaced intertrochanteric fracture of left femur, initial encounter (HCC)- Primary documented in this encounter Care Teams Mail Order Clerk Relationship Specialty Start Date End Date Cuba Larsen MD PCP - General Family Medicine 01/23/22 Chris Mendes MD Referring Physician Cardiology 12/23/21 Keli Orozco, program clerk Failure Coordinator Transplant 04/15/23 Tami Mcknight program clerk Failure Coordinator Cardiology 09/14/23 documented as of this encounter
--- OUTSIDE RECORDS SUMMARY | 2024-03-13 01:08 | XMS_ITS | Encounter Summary ---
Author Organization [facility] Healthcare Address [address] [place] [address] Care Team Providers Care Soil Sampler Name Role Phone Chris Mendes MD Unavailable [phone] Cuba Larsen MD Primary Care Provider [phone] Keli Orozco RN Unavailable Unavailable Tami Mcknight RN Unavailable Unavailab le Reason for Referral * Consultation (Routine) - Closed Specialty Diagnoses / Procedures Referred By Indra t Referred To Contact Dermatology Diagnoses Pruritus Cuba Larsen MD [facility] [place] [address] Phone: tel: fax: Grace Cohen MD [address] [place] [address] Phone: tel: fax: Referral ID Status Reason Start Date Expiration Date V isits Requested Visits Authorized [id number] Closed Specialty Services Required 11/05/2023 12/04/2024 1 1 Question Answer Please select the performing region: External Order [171] To provider: GRACE COHEN [[id number]] # of visits: 1 Reason for Visit * Reason Onset Date Comments Referral Request 11/05/2023 Encounter Details Date Type Department Care Team (Late st Contact Info) Description 11/05/2023 Telephone [facility] Family Medicine at [address] [place] [address] Cuba Larsen MD [facility] [facility] [address] [place] [address] Referral Request Social History Tobacco Use Types [...] on file 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 Grace Cohen Specialty: Dermatology Address: [address] [facility], Zip: [facility] [address] Diagnosis Code/Symptom/Reason Patient is being seen: hives and severe itching Date of Appointment: 11/09/2023 NPI#: [id number] Tax ID#: [id number] Is insurance in chart up to date? Yes, [employer] Additional Comments: none Does message need to be routed? Yes-Action Needed documented in this encounter Plan of Treatment Scheduled Referrals Name Type Priority Associated Diagnoses Order Schedule Ambulatory referral to Dermatology Outpatient Referral Routine Pruritus 1 Occurrences starting 11/05/2023 until 05/07/2024 documented as of this encounter Visit Diagnoses Diagnosis Pruritus- Primary Unspecified pruritic disorder documented in this encounter Care Teams Soil Sampler Relationship Specialty Start Date End Date Cuba Larsen MD PCP - General Family Medicine 01/23/22 Chris Mendes MD Referring Physician Cardiology 12/23/21 Keli Orozco, edge trimmer mechanic Failure Coordinator Transplant 04/15/23 Tami Mcknight, edge trimmer mechanic Failure Coordinator Cardiology 09/14/23 documented as of this encounter
--- OUTSIDE RECORDS SUMMARY | 2024-03-13 01:09 | XMS_ITS | Encounter Summary ---
Author Organization [facility] Healthcare Address [address] [place] [address] Care Team Providers Care Shellfish Shucker Name Role Phone Chris Mendes MD Unavailable [phone] Cuba Larsen MD Primary Care Provider [phone] Keli Orozco RN Unavailable Unavailable Reason for Visit * Reason Comments Stroke * Auth/Cert (Routine) Specialty Diagnoses / Procedures Referred By Indra t Referred To Contact Diagnoses Acute ischemic right MCA stroke (HCC) Procedures NA Referral ID Status Reason Start Date Expiration Date Visits Re quested Visits Authorized [id number] 1 1 Encounter Details Date Type Department Care Team (Latest Contact Info) Description 08/07/2023 12:06 PM CDT - 08/10/2023 6:06 PM CDT Hospital Encounter [facility] [address] [place] [address] Fred Elena MD [address] [place] [address] Chandler Verdugo MD [address] [place] [address] Fred Boone MD [address] [place] [address] Clarence Guido MD [address] [facility] [address] [place] [address] Acute ischemic right MCA stroke (HCC) (Primary Dx) Discharge Disposition: Discharge to home or self care Social History Tobacco Use Types Packs/Day Years Used Date Smoking Tobacco: Never Smokeless Tobacco: Never Alcohol Use Standard Drinks/Week Comments Yes 0 (1 standard drink = 0.6 oz pur e alcohol) AUDIT-C Answer Date Recorded Frequency of Alcohol Consumption Not on file 05/19/2022 Q2: How many drinks containi ng alcohol do you have on a typical day when you are drinking? Patient does not drink Frequency of Binge Drinking Not on file 08/2022 PHQ-2 Answer Date Recorded PHQ-2 Total Score (If total score is 3 or more points, staff should administer the PHQ-9) 0 08/09/2023 Personal Safety Answer Date Recorded Have you ever been in or are you currently in a harmful physical or emotional relationship or is someone making you feel afraid or unsafe? Denies 08/07/2023 Comments No Sex and Gender Information Value Date Recorded Sex Assigned at Not on file Legal Sex Female 4:20 AM [employer] Gender Identity Not on file Sexual Orientation Not on file documented as of this encounter Last Filed Vital Signs Vital Sign Reading Time Taken Comments Blood Pressure 113/73 08/10/2023 3:02 PM CDT Pulse 80 08/10/2023 3:02 PM CDT Temperature 36.8 ??C (98.2 ??F) 08/10/2023 3:02 PM CD T Respiratory Rate 18 08/10/2023 3:02 PM CDT Oxygen Saturation 95% 08/10/2023 3:02 PM CDT Inhaled Oxygen Concentration - - Weight 87.5 kg (192 lb 14.4 oz) 08/07/2023 2:16 PM CDT Height 157.5 cm (5' 2 ) 08/07/2023 2:00 PM CDT Body Mass Index 35.28 08/07/2023 2:00 PM CDT documented in this encounter Discharge Summaries * Ivonne Perez MD - 08/10/2023 1:16 PM CDT Inpatient Discharge Summary BRIEF OVERVIEW Admitting Provider: Fred Elena MD Discharge Provider: Clarence Guido MD Primary Care Physician at Discharge: Cuba Larsen MD [phone] Admission Date: 08/07/2023 Discharge Date: 08/10/2023 Admission Location: [facility] Problems/Diagnoses: Principal Problem: Acute ischemic right MCA stroke (HCC) Resolved Problems: No resolved hospital problems. DETAILS OF HOSPITAL STAY Presenting Problem/History of Present Illness: Ms. Pearce is an 83-year-old woman with past medical history of right MCA ischemic stroke status post MT in May 2021 (no residual deficits), AFib on apixaban (last took 08/06 a.m.), HTN, T2 DM, hypothyroidism, PE, CHF who presented on 08/07/2023 with left facial droop, left arm and leg weakness, and right gaze deviation. Patient notes symptoms began at 11:30 a.m. 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 She reports that she would previously felt a left facial droop in 2021 with prior stroke but that [facility] was able to ???pull the stroke out from a tube up my leg.?? She reports she has no baseline neurologic deficits and completes all ADLs and IADLs independently. She does take apixaban for AFib, lastdose 08/02 4:00 a.m.. She denies missed doses. She is aware of deficits and reports recent life stressors. On arrival to ED, patient hypothermic T 96.6??, HR 81, BP 151/113, 97% on RA. EKG demonstrated AFib. Initial NIHSS 17 for gaze, hemianopia, facial palsy, left arm motor, left leg motor, sensoryloss, dysarthria. Patient factor Xa was 0.5. CT head without acute intracranial abnormalities, CTA demonstrated right M1 segment MCA occlusion with core 14, penumbra of 253 mL with a mismatch ratio of 18.1. Patient was a go for mechanical thrombectomy with no significant delays. Exam otherwise notable for triple flexion to noxious stimulus and left upper and left lower extremity. Patient was thentaken to neuro IR with successful 1 pass aspiration of M1 occlusion with TICI 2c reperfusion. Patient was admitted to an ICU for ongoing monitoring and further care. Upon arrival to an ICU, patient opened eyes to voice, regarded on right, some verbal output but oriented with nodding head yes/no. Patient was moderately dysarthric but followed commands. Exam was full strength on right, flexion to noxious stimulus on left upper and left lower extremity. Vital signs otherwise stable and angio site without oozing or hematoma, pulses palpable. Follow-up head CT 24 hours post thrombectomy stable. Patient was started on ASA and moderate intensity statin for age. Patient was recommended for transfer to floor for ongoing neurologic care. Regarding previous stroke, patient presented on 05/25/2021 with left facial droop, slurred speech in the setting of holding apixaban for 1 week for lithotripsy which he had undergone on 05/21. Original indication for anticoagulation with PEs following right knee replacement surgery in May 2019 aswell as atrial fibrillation. Patient underwent mechanical thrombectomy with successful TICI 3 reperfusion of right M2 occlusion. At patient follow-up August 2021, patient had 4/5 strength in distal left lower extremity due to discomfort. Etiology was felt to be related to AFib at that time. Hospital Course: Prema Pearce is a 83 y.o. female who presented with left sided weakness, right forced gaze found to have an occlusion of the R M1 s/p mechanical thrombectomy 08/07/23 with TICI 2c reperfusion. #Stroke Locations: Right MCA Stroke The patient was found to have an ischemic stroke in the Right MCA territory which was thought most likely to be secondary to cardioembolism. The patient was not a candidate for thrombolytics and was a candidate for thrombectomy . The patient's risk factors included Age > 55, hypertension, dyslipidemia, diabetes mellitus, prior stroke, and obstructive sleep apnea. Management: The patient was started on aspirin 81mg following acute intervention while awaiting safe restart for Eliquis. She was instructed to restart Eliquis 5 BID on 08/10 The patient was also started on a high-intensity statin, with Atorvastatin 40mg Daily, per current [place] Heart Association/[place] Stroke Association guidelines that recommend intensive statin therapy for all patients with ischemic stroke or TIA and also suggest a target LDL level of less than 70mg/dL for high-risk patients, or a reduction of at least 50% if the baseline LDL level is between 70 and 189 mg/dL if tolerated. Pertinent Hospitalization Details: Pt was admitted to NNICU following mechanical thrombectomy 08/06 for overnight monitoring. Repeat CTscan stable from prior and patient with improving strength on the left. Pt was transferred to Stroke Neurology floor on 08/07 for subsequent care. Pertinent Work-Up: - a1c 6.1, LDL 33 - EKG on admission showed atrial fibrillation (known) - Non-contrast head CT: no acute infarcts - 4 vessel angiogram: 1. Initial angiography demonstrated a right middle cerebral artery M1 segment occlusion. 2. Successful 1-pass aspiration mechanical thrombectomy of the right middle cerebral artery. 3. Final angiography demonstrated reperfusion through the right middle cerebral artery territory with some slow flowing distal cortical vessels consistent with a eTICI 2C reperfusion. - TTE 07/26 showed Rhythm is in AFib. LV cavity size is normal with normal systolic function. LVEF 66%. Normal LV wall thickness/mass. LA is markedly dilated. Normal RV cavity size with low normal function. Moderately calcified aortic valve with moderate LGLF . Markedly calcified MAC with no HD sig nificant MS. Mild MR. Estimated PA systolic pressure 39+RA(5) mmHg. Reduced global LV myocardial longitudinal function and strain pattern. Normal Inferior vena cava. Normal aorta. No significant changes noted. A SMART Consult was performed and PT/OT recommended discharge to home. The patient will follow up in the Stroke CAM clinic. Address: [facility] ([facility]): [address] [place] [address] Other problems addressed this admission: #Hypertension Blood pressure on admission was 151/113. Home blood pressure medications were initially held to allow for permissive hypertension in the setting of acute stroke. Blood pressure medications were subsequently resumed with improvements in blood pressure prior to discharge. The patient was discharged on carvedilol 12.5mg BID and losartan 100. The patient should follow-up with their PCP or Jewellery Designer for further evaluation and management. #Hyperlipidemia LDL on admission was 33. The patient was discharged on Atorvastatin 40mg daily. Pt is at Goal LDL for secondary stroke prevention (<70). #Atrial Fibrillation The patient was monitored on telemetry which showed atrial fibrillation. Rate control was achieved during the admission with Coreg and the patient was discharged on Coreg as above for ongoing rate control. [id number] score is 7. The patient was discharged on Eliquis (to start on 08/10) for secondarystroke prevention. The patient should follow-up with their PCP or Jewellery Designer for further evaluation and management. #Type II Diabetes Mellitus A1c on admission was 6.1. Goal a1c for secondary stroke prevention is <7%. Blood glucose was managed during the hospitalization with sliding scale insulin. The patient was discharged on her home meds. The patient should follow-up with their PCP for further evaluation and management. Active Issues Requiring Follow-up: See above Test Results Pending at Discharge: Operative Procedures Performed: Other Procedures: Pertinent Test Results: Discharge Details Physical Exam at Discharge: Discharge Condition: stable Pulse: 80 Resp: 18 BP: 113/73 Temp: 36.8 ??C (98.2 ??F) Weight: 87.5 kg (192 lb 14.4 oz) Pertinent Exam Findings at Discharge: COGNITION: Alert, oriented to conversation, language fluent CRANIAL NERVES: EOM grossly intact, face activates symmetrically, no dysarthria, hearing grossly intact MOTOR: 4/5 in L biceps/triceps, otherwise 5/5 throughout (somewhat pain limited in LLE from prior knee replacement) SENSORY: SILT COORDINATION: No gross ataxia noted GAIT: Deferred Discharge Disposition: Discharge to home or self care Code Status at Discharge: Full Discharge Instructions: See AVS Discharge Medications: Current Medications TAKE these medications ALPRAZolam 0.5 mg tablet TAKE 1 TABLET (0.5 MG TOTAL) BY MOUTH 2 (TWO) TIMES A DAY NEEDED FOR ANXIETY. Commonly known as: XANAX apixaban 5 mg tablet Take 1 tablet (5 mg total) by mouth 2 (two) times a day Commonly known as: Eliquis Start taking on: August 11, 2023 blood-glucose meter misc Use daily or as directed for monitoring of diabetes. CALCIUM CARBONATE ORAL Take 600 mg by mouth 2 (two) times a day carvediloL 12.5 mg tablet Take 1 tablet (12.5 mg total) by mouth 2 (two) times a day with meals Commonly known as: COREG cholecalciferol 2000 unit tablet Take by mouth Commonly known as: VITAMIN D-3 glipiZIDE 10 mg tablet TAKE 1 TABLET BY MOUTH TWICE A DAY BEFORE BREAKFAST AND LUNCH Commonly known as: GLUCOTROL glucose blood test strip One strip daily to check glucose Generic drug: blood glucose diagnostic lancets misc 1 each by other route daily levothyroxine 50 mcg tablet TAKE 1 TABLET BY MOUTH EVERY DAY Commonly known as: SYNTHROID losartan 100 mg tablet TAKE 1 TABLET BY MOUTH EVERY DAY Commonly known as: COZAAR melatonin 5 mg tablet Take 1 tablet (5 mg total) by mouth nightly metFORMIN 500 mg tablet TAKE 1 TABLET BY MOUTH TWICE A DAY WITH FOOD Commonly known as: GLUCOPHAGE wmcccmwh-yte-nzog-FA-vit K-lut 8 mg iron-400 mcg-50 mcg tablet Take by mouth rosuvastatin 20 mg tablet TAKE 1 TABLET BY MOUTH EVERY DAY Commonly known as: CRESTOR spironolactone 25 mg tablet TAKE 1 TABLET (25 MG TOTAL) BY MOUTH DAILY. Commonly known as: ALDACTONE Outpatient Follow-Up: Future Appointments Date Time Provider Department Center 09/02/2023 1:45 PM Cuba Larsen MD [facility] 210 02/01/2024 1:20 PM Chris Mendes MD [id number] Cardiology Cosigned by Clarence Guido MD at 08/10/2023 4:29 PM CDT Associated attestation - Clarence Guido MD - 08/10/2023 4:29 PM CDT I have seen and examined the patient on 08/10/23. I agree with the findings and plan of care as documented in the resident's/fellow's note.. documented in this encounter Discharge Instructions * Discharge Instructions* Ivonne Perez MD - 08/08/2023 6:22 PM CDT Thank you for choosing us for your care. You were admitted to the Stroke Service for left sided weakness, which we determined was due to a clot in a blood vessel on the right side of your brain called the middle cerebral artery. You were started on medications for prevention of stroke. During your hospitalization you received a procedure to remove clots called thrombectomy, Aspirin to help prevent new clot formation,, and a statin for lowering of your cholesterol. You will eventually be restarted on your blood thinner, Eliquis, on 08/11/23, which was temporarily held due to the new stroke. General Instructions: - Instructions as provided and reviewed in the After Visit Summary provided at discharge. - It is recommended that you follow up with your primary care provider within one week for further coordination and optimization of care and medication regimen. - It is recommended that you take your medications as prescribed and that you discuss any new medications with your outpatient providers.. Please reach out to your outpatient Providers with questionsor concerns or if you have any symptoms concerning for side-effects. Do not discontinue any medications without first speaking to your doctor. - If you have questions about your hospitalization after discharge then please contact us at [phone] and ask for Scott Crandall MD. Follow Ups: - You have been referred for follow-up at the: Stroke CAM: [phone] located at [facility] Medicine [facility]): [address] [place] [address]. You can find more information about our Neurology Specialty Clinics here: [email or web address] Patientshould expect to be contacted with appointment details within the next week if their appointment has not already been finalized. If you have not heard from the office or if you need to change/cancel your appointment please contact the office at the telephone number provided. - It is recommended that you have a primary care provider for further coordination of care in the outpatient setting. If you do not have a primary care provider you could consider calling our PrimaryCare Clinic to schedule an appointment at [phone] OR reach out to the Community Boat Dispatcher at [facility] (Brie Jesus [phone] ) if you would like assistance getting an appointment with a primary care provider. - You have been referred for follow up with Stroke CAM: [phone] Call Your Doctor If: CALL [phone] IF YOU HAVE NEW SIGNS OF A STROKE, SUCH : * Your arm, leg or face suddenly becomes weak; especially on one side of your body. * Your arm, leg or face suddenly becomes numb; especially on one side of your body. * You suddenly become confused or have a hard time talking. * You began having double vision or are not able to see in one or both eyes. * You have a hard time walking, become dizzy or feel like you may fall. * Your head begins to hurt very badly. Activity: Follow the instructions given to you by Physical Therapy and Occupational Therapy. Additional Information: LIFESTYLE CHANGES TO REDUCE STROKE / TIA RISK: * If you are a smoker, you are advised to stop - smoking doubles your risk of stroke. Discuss aids to quit smoking with your primary care doctor. * If you drink alcohol, no more than one drink per day - more than this increases your risk of stroke. (One drink means 1.5 ounces of hard liquor, 4 ounces of wine or 12 ounces of beer.) * High blood pressure is a leading cause of stroke. If you have hypertension, work with your doctorto optimize blood pressure control * Include exercise in your daily routine. Check with your primary doctor regarding exercise restrictions. * If you are overweight, please discuss weight loss with you primary doctor. This also helps control stroke risk factors: high blood pressure, diabetes, and high cholesterol. * Diet: Mediterranean or DASH diet is recommended Resources: Stroke Family Warmline: The Warmline connects stroke survivors and their families with an ASA prepared foods team leader who can provide support, helpful information or just a listening ear. Call our Stroke Family Warmline at 4-149-2-STROKE ( ). [place] St[place] Association: They provide comprehensive resources and support for stroke survivors,including online support communities. Website: www.stroke.org National Stroke Association: They offer stroke support groups in various cities across the [place] andonline resources. Website: www.stroke.org Find local or online support groups here: https://www.stroke.org/en/tbzy-lxz-nlgecvi/wceoimf-vcded-w eader-resources/ygjddwx-cacrsiz-bwcseh or Adhysteria/strokeassist Stroke Support Group Finder: This online tool helps you find stroke support groups in any area. Website: www.strokesupport.org Stroke Club: This is a support group hosted by the [facility]. They meetmonthly and provide education and support for stroke survivors and their families. Contact: [facility] Stroke Support Group: This group provides monthly meetings for stroke survivors, their families, and caregivers. Contact: [facility] Stroke Support Group: This group is designed to provide emotional and educational support for stroke survivors and their families. Contact: documented in this encounter Medications at Time of Discharge apixaban (Eliquis) 5 mg tablet Take 1 tablet (5 mg total) by mouth 2 (two) times a day 60 tablet 11 08/11/2023 blood glucose diagnostic (glucose blood) stripIndications :Type 2 diabetes mellitus without complication, without long-term current use of insulin ([facility]) ([facility]) One strip daily to check glucose 100 each 1 03/19/2023 5 blood-glucose meter miscIndications: Type 2 diabetes mellitus without complication, without long-term current use of insulin ([facility]) ([facility]) Use daily or as directed for monitoring of diabetes. 1 each 03/19/2023 CALCIUM CARBONATE ORAL Take 600 mg by mouth 2 (two) times a day cholecalciferol (VITAMIN D-3) 2000 unit tablet Take by mouth lancets miscIndications: Type 2 diabetes mellitus without complication, without long-term current use of insulin ([facility]) ([facility]) 1 each by other route daily 100 each 1 03/19/2023 melatonin 5 mg tablet Take 1 tablet (5 mg total) by mouth nightly 08/10/2023 ALPRAZolam (XANAX) 0.5 mg tabletIndication s:Anxiety TAKE 1 TABLET (0.5 MG TOTAL) BY MOUTH 2 (TWO) TIMES A DAY NEEDED FOR ANXIETY. 60 tablet 07/06/2023 4 carvediloL (COREG) 12.5 mg tablet Take 1 tablet (12.5 mg total) by mouth 2 (two) times a day with meals 180 tablet 3 10/24/2022 4 glipiZIDE (GLUCOTROL) 10 mg tablet TAKE 1 TABLET BY MOUTH TWICE A DAY BEFORE BREAKFAST AND LUNCH 180 tablet 1 01/12/2023 4 levothyroxine (SYNTHROID) 50 mcg tablet TAKE 1 TABLET BY MOUTH EVERY DAY 90 tablet 05/22/2023 4 losartan (COZAAR) 100 mg tablet TAKE 1 TABLET BY MOUTH EVERY DAY 90 tablet 3 06/18/2023 4 metFORMIN (GLUCOPHAGE) 500 mg tablet TAKE 1 TABLET BY MOUTH TWICE A DAY WITH FOOD 180 tablet 1 03/03/2023 4 aicwqnqs-dmm-oec n-FA-lutein 8 mg iron-400 mcg-300 mcg tablet Take by mouth 4 rosuvastatin (CRESTOR) 20 mg tablet TAKE 1 TABLET BY MOUTH EVERY DAY 90 tablet 3 06/23/2022 4 spironolactone (ALDACTONE) 25 mg tablet TAKE 1 TABLET (25 MG TOTAL) BY MOUTH DAILY. 90 tablet 3 03/19/2023 4 documented as of this encounter Ordered Prescriptions Prescription Sig Dispense Quantity Refills Last Filled Start Date End Date apixaban (Eliquis) 5 mg tablet Take 1 tablet (5 mg total) by mouth 2 (two) times a day 60 tablet 11 08/11/2023 melatonin 5 mg tablet Take 1 tablet (5 mg total) by mouth nightly 08/10/2023 documented in this encounter Discharge Disposition Disposition Code Departure Means Destination Comment s Discharge to home or self care documented in this encounter Progress Notes * Ivonne Perez MD - 08/10/2023 10:16 AM CDT Stroke Progress Note Patient Name: Prema Pearce Date of / Age: 11 1940 / 83 y.o. Gender: female Date of Service: 08/10/2023 SUBJECTIVE CHIEF COMPLAINT: Ms. Pearce is a 83 y.o. right handed female who presented 08/07/23 with left- sided weakness, R gaze deviation found to have R M1 occlusion s/p MT with TICI 2c reperfusion 08/07/23, transferred to Stroke service 08/08/23. - NAOE - VSS Medications Scheduled Medications: aspirin, 81 mg, oral, Daily atorvastatin, 40 mg, oral, Daily carvediloL, 12.5 mg, oral, BID with meals (bkfst, dinner) docusate sodium, 100 mg, oral, BID heparin, 5,000 Units, subcutaneous, Q8H MISHA insulin lispro, 0-5 Units, subcutaneous, QID (AC & HS) levothyroxine, 50 mcg, oral, Daily - 0600 senna, 1 tablet, oral, BID sodium chloride 0.9%, 0.5-20 mL, intra-catheter, Q8H MISHA Continuous Medications: PRN Medications: acetaminophen OR [DISCONTINUED] acetaminophen OR [DISCONTINUED] acetaminophen sodium chloride 0.9% dextrose OR dextrose glucagon hydrALAZINE labetalol ondansetron ramelteon sodium chloride 0.9% trimethobenzamide Objective 24hr Min/Max: Temp Min: 36.4 ??C (97.5 ??F) Max: 36.9 ??C (98.4 ??F) Pulse Min: 84 Max: 109 BP Min: 108/69 Max: 128/82 Resp Min: 16 Max: 18 SpO2 Min: 95 % Max: 96 % I/O: No intake or output data in the 24 hours ending 08/10/23 1016 Physical exam: GEN: In no acute distress, sitting comfortably in chair HENT: Normocephalic, atraumatic, mucous membranes moist EYES: Anicteric sclera PULM: No increased work of breathing CV/EXT: No visible edema SKIN: Dry, no suspicious rashes or lesions noted PSYCH: Calm and cooperative, eye contact appropriate for medical condition NEURO: COGNITION: Alert, oriented to conversation, language fluent CRANIAL NERVES: EOM grossly intact, face activates symmetrically, no dysarthria, hearing grossly intact MOTOR: 4/5 in L biceps/triceps, otherwise 5/5 throughout (somewhat pain limited in LLE from prior knee replacement) SENSORY: SILT COORDINATION: No gross ataxia noted GAIT: Deferred Lab/Radiology/Diagnostic Review: Recent Labs Lab Units 08/09/23 2216 WBC K/cumm 6.8 HEMOGLOBIN g/dL 11.5* HEMATOCRIT % 34.8* PLATELETS K/cumm 220 Recent Labs Lab Units 08/07/23 1435 APTT sec 30 INR 1.21* Recent Labs Lab Units 08/10/23 0718 08/09/23 2216 08/09/23 0719 05/25/24 2052 SODIUM mmol/L -- 137 -- 138 POTASSIUM PLASMA mmol/L -- 4.4 -- 4.2 CHLORIDE mmol/L -- 103 -- 106 CO2 mmol/L -- 24 -- 24 ANIONGAP mmol/L -- 10 -- 8 GLUCOSE mg/dL -- 137 -- 119 POC GLUCOSE MONITOR mg/dL 166 -- < > -- BUN SERUM mg/dL -- 32* -- 17 CREATININE mg/dL -- 0.83 -- 0.59* CALCIUM mg/dL -- 9.9 -- 9.6 ALBUMIN g/dL -- -- -- 4.1 ALK PHOS Units/L -- -- -- 72 ALT Units/L -- -- -- 21 AST Units/L -- -- -- 23 BILIRUBIN TOTAL mg/dL -- -- -- 0.6 < > = values in this interval not displayed. 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 Dictated by: Lilibeth Zelaya MD, PhD The radiology attending physician has personallyreviewed this study, and had reviewed and/or edited this written report and agrees with it. Electronically signed by: Delmy Wheeler M.D. IR Percutaneous Arterial Thrombectomy, Intracranial Result Date: 08/08/2023 1. Initial angiography demonstrated a right middle cerebral artery M1 segment occlusion. 2. Successful 1-pass aspiration mechanical thrombectomy of the right middle cerebral artery. 3. Final angiography demonstrated reperfusion through the right middle cerebral artery territory with some slow flowing distal cortical vessels consistent with a eTICI 2C reperfusion. PLAN: 1. Admit to neuro-ICU for post-mechanical thrombectomy acute ischemic stroke care. 2. Lie flat with right leg straight for two hours. These results were discussed with the neuro-ICU team and the patient's family upon conclusionof the case. Dictated by: Mor Riley MD The radiology attending physician has personally reviewed this study, and had reviewed and/or edited this written report and agrees with it. Electronically signed by: Stuart Simental M.D. CTA/CTP Rapid Stroke (C) Result Date: 08/07/2023 1. No evidence of acute intracranial hemorrhage. 2. Distal right M1 occlusion with poor collateral flow. Associated large right cerebral hemispheric area of ischemic penumbra, with small core infarct. 3. Chronic/incidental findings, as described above. Critical findings were discussed with Chris, stroke resident by Emanuel Lopes MD at 08/07/2023 12:35 PM. Dictated by: Paxton Lopes MD The radiology attending physician has personally reviewed this study, and had reviewed and/or edited this written report and agrees with it. Electronically signed by: Yonis Holguin M.D. XR chest 1 view (Portable) Result Date: 08/07/2023 The current study is compared with the prior radiograph dated 05/25/2021. Calcified nodule in the peripheral right midlung likely represents old granulomatous disease. No pulmonary edema. No pneumothorax or pleural effusion. Stable moderate cardiomegaly. Tortuous atherosclerotic aorta. Dictated by:Mehul Torres MD The radiology attending physician has personally reviewed this study, and had reviewed and/or edited this written report and agrees with it. Electronically signed by: Tommy Dennison M.D. I have reviewed the above imaging/diagnostic results and discussed with my attending. Assessment and Plan Ms. Pearce is a 83 y.o. right handed woman with past medical history of past medical history of right MCA ischemic stroke status post MT in May 2021 (no residual deficits), AFib on apixaban (last took 08/06 a.m.), HTN, T2 DM, hypothyroidism, PE, CHF who presented on 08/07/2023 with left facial droop, left arm and leg weakness, and right gaze deviation. The patient was a NO GO for thrombolytics and GO for thrombectomy 08/06 with TICI 2c reperfusion. Impression/Etiology: Ms. Pearce presents with left sided weakness that localizes to the Right MCA territory. Etiologies highest on the differential for consideration per TOAST criteria include: cardioembolism. The patient will benefit from amelioration of stroke risk factors and optimization of stroke secondary prevention. The patient will be started on Aspirin 81mg Daily and moderate intensity statin due to age. # R M1 occlusion s/p MT TICI 2c reperfusion # hx of R MCA occlusion # Atrial fibrillation on apixaban Etiology: cardioembolism Risk Factors: Age > 55, hypertension, dyslipidemia, diabetes mellitus, prior stroke, atrial fibrillation, congestive heart failure, and obstructive sleep apnea Work up: - LDL 33, a1C 6.1 - EKG atrial fibrillation (known) - HCT 08/07 unchanged L parietal occipital chronic infarct w associated laminar necrosis and/or dystrophic calcifications - CTA 08/06 distal R M1 occlusion w poor collateral flow. Associated large R cerebral hemispheric area of ischemic penumbra w small core infarct - TTE 07/27/23: LVEF 66%, LA dilation nor masses/vegetations/thrombi, reduced global LV myocardial longitudinal function and strain pattern - Loop on discharge: No, has known Afib Secondary Prevention: - ASA 81mg -> will restart Eliquis on 08/10 - Atorvastatin 40mg Daily Blood Pressure: - Stroke BP Goal: Normotension <140/90 - as managed under HTN Risk Factor/Etiology Work-up: - Monitor on telemetry Lifestyle modifications: Encourage smoking cessation if applicable, regular exercise, a healthy diet, and limited alcohol intake. Consults: SMART (Contaminated Land Consultant, PT/OT, SALMON GILLNET VESSEL OPERATOR, Spiritual Care) #Hypertension Blood pressure on admission was 151/113. Home blood pressure medications are carvedilol 12.5mg BID,losartan 100mg daily. Pt with labile blood pressure following procedure, will restart in tiered fashion w goal normotension <130/90 following thrombectomy. - restart carvedilol 12.5mg BID #Hyperlipidemia LDL on admission was 33. Goal LDL for secondary stroke prevention is <70. - atorvastatin 40mg daily #T2DM Home meds glipizide 10mg daily, metformin 500mg BID - SSI TID AC while inpatient #hypothyroidism - continue home levothyroxine 50mcg #PE - hold AC in setting of acute stroke, restart 4 to 14d after ischemic event #CHF GDMT with carvedilol 12.5mg BID, losartan 100mg qD, spironolactone 25mg qD - restart in tiered fashion as above to prevent hypotension iso recent ischemic stroke #anxiety - hold home alprazolam 0.5mg BID PRN Disposition: Pending PT/OT Evaluation Code Status: Full Code Diet: Adult Diet Regular, Restricted; Regular Liquid; Consistent Carbohydrate DVT Prophylaxis: Heparin Lines/Tubes: Peripheral IV 05/25/21 18 G Right Antecubital (Active) Number of days: 805 Peripheral IV 08/07/23 18 G Left Antecubital (Active) Number of days: 1 External Urinary Device (Active) Number of days: 1 Ivonne Perez MD 08/10/23 Cosigned by Clarence Guido MD at 08/10/2023 4:27 PM CDT Associated attestation - Clarence Guido MD - 08/10/2023 4:27 PM CDT I have seen and examined the patient on 08/10/23. Please see attestation on same day discharge summary. * Khanh Helton - 08/09/2023 11:02 AM CDT Physical Therapy Physical Therapy Evaluation Note NOTE: This is a summary note of the espitia components of the evaluation session. For full details, review chart for all flowsheets documented on by this physical therapy clinician on this date. Vital signs are documented in the vital signs flowsheet. For questions, please review the treatment team and contact the PT or LABORATORY HELPER currently assigned to this patient. If a physical therapy clinician is not assigned to this patient, please call [phone]. 08/09/23 1002 General Chart Reviewed Yes Session Type Evaluation (initial dc) PT Received On 08/09/23 Safe Environment Arm band checked;Patient found sitting in chair;Gait belt utilized for all out of bed mobility;Session completed bedside Subjective Agreeable to Therapy Family/Caregiver Present No Physical Therapy-Patient Goal get home and back to normal routine Precautions Precautions Fall risk;AYAD Home Living Type of Home House Home Layout One level Home Access Stairs to enter with rails Entrance Stairs-Rails Both Entrance Stairs-Number of Steps 5 Home Mobility Equipment-Available Single point cane;Walker Home Mobility Equipment-Currently Using None Prior Function Level of [place] Independent functional transfers;Independent with ambulation Lives With Alone Receives Help From Family;Neighbor (son available to help her and can stay with her if needed. Neighbor also assists. PT help) Fall within the last 6 months No Pain Assessment Pain Assessment No/denies pain Cognition Arousal/Alertness Alert Orientation Oriented X4 (person, place, time, situation) Following Commands Follows all commands and directions without difficulty Sensation Light Touch WFL (bilateral LE) Sensation Comments Bilat LE skin integ intact except for corn on L foot Balance Tests Balance Tests Yes Benavides Balance Scale 1. Sitting to Standing 3 2. Standing Unsupported 4 3. Sitting with Back Unsupported but Feet Supported on Floor or on a Stool 4 4. Standing to Sitting 3 5. Transfers 3 6. Standing Unsupported with Eyes Closed 4 7. Standing Unsupported with Feet Together 4 8. Reach Forward with Outstretched Arm While Standing 4 9. Staple Processing Machine Operator Object from Floor from a Standing Position 4 10. Turning to Look Behind Over Left and Right Shoulders While Standing 3 11. Turn [address] Altern[address] Foot on Step or Stool While Standing Unsupported 4 13. Standing Unsupported One Foot in Front 3 14. Standing on One Leg 1 Benavides Balance Score 47 Balance Balance Yes Static Sitting Balance Static Sitting-Balance Support No upper extremity supported;Feet supported Static Sitting-Sitting Surface Chair Static Sitting-Level of Assistance Independent Static Standing Balance Static Standing-Balance Support No upper extremity supported Static Standing-Standing Surface Floor Static Standing-Level of Assistance Distant supervision Static Standing-Comment/# of Minutes sup for safety Bed Mobility Bed Mobility No Transfers Transfer Yes Transfer 1 Transfer From 1 Sit Transfer Type 1 To and from Transfer to 1 Stand Technique 1 Sit to stand;Stand to sit Transfer Device 1 No device Transfer Level of Assistance 1 Standby Assist Trials/Comments 1 SBA for safety Ambulation Ambulation Yes Ambulation 1 Distance (ft) 1 100 Surface 1 Level tile Device 1 No device Assistance 1 Standby Assist Gait Deviations 1 Step length - decreased Ambulation Comments 1 SBA for safety Stairs Stairs Yes Stairs Number of Stairs 1 5 Rails 1 Bilateral Device 1 No device Assistance 1 Standby Assist RUE Assessment RUE Assessment WFL LUE Assessment LUE Assessment WFL RLE Assessment RLE Assessment WFL LLE Assessment LLE Assessment WFL Basic Mobility - 6 Click How much difficulty does the patient have: Turning over in bed 4 How much difficulty does the patient currently have: Sitting down and standing up from a chair witharms? 3 How much difficulty does the patient have: Moving from lying on back to sitting on the side of the bed? 4 How much difficulty does the patient have: Moving to and from a bed to a chair including wheelchair? 3 How much help does the patient currently need: Walk in hospital room? 3 How much help from another person does the patient currently need: Climbing 3-5 steps with a railing? 3 Total 6 Click Score (range 6-24) 20 Score Interpretation 43.99 Safe Environment End of Therapy Session Safe Environment End of Therapy Session Patient left in recliner;Chair alarm in place and activated;Call light within reach Assessment Problem List Decreased endurance;Gait deviations Problem List Comments PT Diagnosis: ischemic R MCA stroke presenting w MICA WASHER GLUER s/p MT with TICI 2c reperfusion 08/07/23. results in above listed activity deficits and impairments which prevent full participation in home and community mobility Plan Plan Discharge;If this is the last note, consider this the discharge summary Recommendation/Plan PT Recommendation/Plan Home with family Patient at high risk for Falls PT Frequency during current admission One time visit (Discharge from this service) PT - OK to Discharge Yes PT Evaluation Complete Yes Multi-Disciplinary Problems (from Physical Therapy) Active Problems Not on file Cosigned by Lucila Faustin, PT at 08/09/2023 4:18 PM CDT * Leila Pelaez - 08/09/2023 8:47 AM CDT Occupational Therapy Evaluation Note NOTE: This is [...] not assigned to this patient, please call [phone]. 08/09/23 5480 General Chart Reviewed Yes Session Type Evaluation (Initial discharge) OT Received On 08/09/23 Safe Environment Arm band checked;Patient found sitting in chair;Gait belt utilized for all out of bed mobility Subjective Agreeable to Therapy Family/Caregiver Present No Occupational Therapy-Patient Goal Pt reports I want to return home. Precautions Precautions Fall risk Home Living Type of Home House Bathroom Shower/Tub Walk-in shower with threshold Bathroom Equipment Shower chair Home Mobility Equipment-Available Walker Home Mobility Equipment-Currently Using None Prior Function Level of [place] Independent with ADLs;Independent functional transfers;Independent with homemaking with ambulation Lives With Alone Receives Help From Family;Neighbor (Pt reports her neighbors and family can provide intermittent assistance) Driving Yes Vocational/Occupation Retired Fall within the last 6 months No Grooming Grooming: Where assessed Standing at sink Grooming: Level of assistance Standby Assist LE Dressing LE Dressing: Where assessed Chair LE Dressing: Level of assistance Standby Assist Room Mobility Room Mobility: Where assessed In pt room Room Mobility: Level of Assistance Standby Assist Toilet Transfers Toilet Transfer to Standard toilet Toilet Transfer Technique Ambulating Toilet Transfer: Equipment No device Toilet Transfers Supervision Pain Assessment Pain Assessment No/denies pain Vision-Basic Assessment Current Vision Wears glasses only for reading Patient Visual Report (Pt reports no acute changes in vision) Cognition Arousal/Alertness Alert Attention Span Attends with cues to redirect;Difficulty dividing attention Memory (4/5 on delayed recall task) Orientation Oriented X4 (person, place, time, situation) Following Commands Follows all commands and directions without difficulty Safety Judgment Good awareness of safety precautions Insight Decreased awareness of deficits (Pt with decreased insight to deficits noted in Trails B) Short Blessed Test What year is it now? 0 What month is it now? 0 Repeat this name and address after me Miguel Carrasquillo [address] [place] [address] Without looking at the clock, tell me what time it is 0 Count aloud backwards from 20-1 0 Say the months of the year backwards in reverse order 0 Repeat the name and address I asked you to remember 2 Short Blessed Total Score 2 Short Blessed Comments WNL Mesulam Cancellation Test Mesulam Unstructured Left Omissions 0 Right Omissions 0 Neglect Score 0 (WNL) Time to Complete 297 seconds Trails A & B ([place] Making Test) Patient completed Trails A in (seconds) 72 Trails A # of errors 0 Trails A score evaluation WNL Unable to complete Trails B due to Cognition (Attempted to complete task Pt unable to get past 5E without continuous corrections.) Coordination Serial Opposition WFL Reach/Grasp RUE Grasp (5/5) LUE Grasp (5/5) Tinetti Sitting Balance 1 Arises 2 Attempts to Arise 2 Immediate Standing Balance (First 5 Seconds) 2 Standing Balance 2 Nudged 2 Eyes Closed 1 Turned 360 Degrees: Steadiness 1 Turned 360 Degrees: Continuity of Steps 1 Sitting Down 2 Balance Score 16 Bed Mobility Bed Mobility No (Pt presented seated in recliner) Transfer 1 Transfer From 1 Sit Transfer Type 1 To and from Transfer to 1 Stand Transfer Device 1 No device Transfer Level of Assistance 1 Standby Assist RUE Assessment RUE Assessment WFL LUE Assessment LUE Assessment WFL Other Comments Comments Adminstered the Verbal Reasoning Assessment. Pt scored a 17/20 indicating a normal safety awareness. Pt informed of recommendation to not drive until follow-up with her MD and OP OT given impairments on Trails B. Daily Activity - 6 Clicks Putting on and taking off regular lower body clothing 3 Bathing 3 Toileting 3 Putting on and taking off upper body clothing 3 Personal Grooming 3 Eating Meals 4 Total Score (range 6-24) 19 Score Interpretation 40.22 Safe Environment End of Therapy Session Safe Environment End of Therapy Session Patient left in recliner;Chair alarm in place and activated;Call light within reach;Overbed table within reach Plan Plan Discharge;If this is the last note, consider this the discharge summary Recommendation/Plan OT Recommendation Home with intermittent assist;Outpatient OT OT Recommendation/Plan Comments Recommend not to drive until cleared by MD or OP OT, assist PRN IADLs OT Frequency during current admission One-time visit (Discharge from this service) (0) OT - OK to Discharge Yes OT Evaluation Complete Yes Multi-Disciplinary Problems (from Occupational Therapy) Active Problems Not on file Cosigned by Mahogany Jean-Baptiste OT at 08/09/2023 1:25 PM CDT * Parris Celestin NP - 08/08/2023 6:15 AM CDT Neuro Critical Care Progress Note CC: R M1 occlusion HPI: This is an 83 year old female with PMH CVA s/p MT (2021, in setting of off AC for elective procedure, reportedly no longer with residual RSW), afib (on eliquis), submassive PE (2019), HTN, HLD, nonischemic dilated cardiomyopathy (recovered EF now 66%), AYAD, DM2, hypothyroidism, GERD, anxiety, who presents to [facility] with MICA WASHER GLUER, R gaze, R facial droop. 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 EMS was called and the patient arrived to [facility] ED. On arrival was afebrile, HR 81, BP 151/113, 97% on RA. In afib. Alert, oriented x3, follows commands,mild dysarthria, PERRL, R gaze and does not cross midline, L facial droop, triple flex to nox stim in LUE/LLE, 5/5 on RUE/RLE. CTA/CTP shows distal R M1 occlusion, large right cerebral hemispheric area of ischemic penumbra (253 ml), small core infarct (14 ml), mismatch ratio 18.1. No go for TNK given last dose of eliquis this morning. Intubated with succinylcholine for thrombectomy. Underwent thrombectomy, successful single pass thrombectomy of right MCA M1 segment, TICI 2c reperfusion. Final angio with no significant ICA stenosis. Extubated. Arrives to NNICU s/p thrombectomy. Upon arrival to NNICU the patient opens eyes to voice, regards on R, some verbal output but oriented with nodding head yes/no. Moderately dysarthric. Follows commands. 5/5 on RUE/RLE. Flexion to nox stim on LUE/LLE. VS: T 35.9c, HR 79, RR 17, Sp02 100%, BP 157/95 (MAP 110). R groin angio site no oozing or hematoma, pulses palpable. Interval events: -- passed swallow eval -- HCT this AM stable Vitals 24hr Temp Min: 35.9 ??C (96.6 ??F) Max: 37 ??C (98.6 ??F) Pulse Min: 70 Max: 96 NIBP BP Min: 112/62 Max: 187/135 MAP (mmHg) Av.4 Min: 76 Max: 149 A-line No data recorded I/O: Intake/Output Summary (Last 24 hours) at 08/08/2023 0616 Last data filed at 08/08/2023 0000 Gross per 24 hour Intake 410 ml Output 1305 ml Net -895 ml UOP: 1300 ml so far LABS Recent Labs Lab Units 08/07/23203108/07/[id number]/07/23 1215 SODIUM mmol/L 139 -- -- 137 -- 140 POTASSIUM PLASMA mmol/L 4.3 -- -- 4.9 -- 4.4 CHLORIDE mmol/L 104 -- -- 107 -- 107 CO2 mmol/L 25 -- -- 23 -- 23 ANIONGAP mmol/L 10 -- -- 7 -- 10 GLUCOSE mg/dL 128 -- -- 117 -- 116 POC GLUCOSE MONITOR mg/dL -- 104 134 -- < > -- BUN SERUM mg/dL 13 -- -- 18 -- 18 CREATININE mg/dL 0.57* -- -- 0.63 -- 0.56* CALCIUM mg/dL 9.5 -- -- 9.2 -- 9.9 MAGNESIUM mg/dL 2.8* -- -- 1.6 -- -- PHOSPHORUS PLASMA mg/dL 3.0 -- -- 2.9 -- -- < > = values in this interval not displayed. Recent Labs Lab Units 08/07/23203108/07/[id number]/07/[id number]/07/23 1212 WBC K/cumm 8.4 6.7 7.9 -- HEMATOCRIT % 37.8 36.0 38.3 -- HEMOGLOBIN g/dL 12.4 12.0 12.5 -- PLATELETS K/cumm 220 214 229 -- APTT sec -- 30 32 -- INR -- 1.21* -- 1.0 Recent Labs Lab Units 08/07/23203108/07/[id number]/07/23 1215 ALK PHOS Units/L 73 74 82 BILIRUBIN TOTAL mg/dL 0.6 0.6 0.5 TOTAL PROTEIN g/dL 7.4 7.1 7.4 ALBUMIN g/dL 4.1 4.0 4.4 ALT Units/L 21 AST Units/L 22 IMAGING (Most recent) NEURO IMAGING: CT Head WO Contrast 08/07 at 0326 IMPRESSION: Stable left parietal occipital infarct with encephalomalacia with an associated area oflaminar necrosis. CTA/CTP Rapid Stroke 08/06 at 1229 IMPRESSION: 1. No evidence of acute intracranial hemorrhage. 2. Distal right M1 occlusion with poor collateral flow. Associated large right cerebral hemisphericarea of ischemic penumbra, with small core infarct. 3. Chronic/incidental findings, as described above. PHYSICAL EXAM: General: Laying in bed, NAD HEENT: Mucous membranes moist, sclera anicteric Cardiac: Irregularly irregular rhythm, no M/R/G Pulmonary: Even, unlabored respirations. Symmetric chest rise and fall. Lungs clear to auscultationanterior lopes. Abdomen: Non-distended in appearance, bowel sounds present, soft/non-tender to palpation. No massesor HSM. Ext: No peripheral edema or digital cyanosis. R groin angio site no oozing or hematoma. Pulses palpable. Skin: No rashes or lesions NEURO EXAM Mental Status Eyes open spontaneously, regards, follows commands, oriented to person, place, month, year Cranial Nerves PERRL, EOMI, gaze conjugate, L facial droop resolving, no dysarthria, spontaneous corneals and cough Motor Moves all extremities spontaneously with full strength Slight drift in LUE NEUROLOGICAL Meds: ASA 81 mg daily Atorvastatin 40 mg daily PRN tylenol 650 mg q4h # R M1 occlusion s/p MT TICI 2c -- likely in setting of afib -- No TNK due to eliquis. Successful MT TICI 2C 1 pass aspiratioin. -- stroke workup: A1c 6.1, LDL 33, TTE pending. Was in afib on arrival. Final angiography with no significant stenosis -- ASA/atorvastatin as above -- holding home eliquis at this time pending evolution of her stroke -- HCT this morning stable -- BP goal < 175/100 -- NC q1h -> change to q4h -- SMART consult # Anxiety -- hold home PRN xanax CARDIOVASCULAR and HEME Meds: PRN labetalol (x2 doses last 24h) PRN hydralazine EKG: Afib TTE 07/27/23 SUMMARY: Rhythm is in AFib. LV cavity [...] cava. Normal aorta. No significant changes noted. # Afib -- has had hx of cardioversion and sotalol initiation around 2009 and d/c'd as of 2018. Treated with rate control until submassive PE in 2019, then amio initiated but was d/c'd in 2019 due to GI sideeffects. -- currently takes coreg as above, likely resume soon if BP tolerates -- on eliquis at home, currently holding pending the evolution of her stroke. Will eventually need to evaluate resumption of this vs another agent vs ?watchman device since she has had a stroke whilecompliant with her eliquis -- monitor on tele, currently rate controlled # HTN -- holding home coreg 12.5 mg BID, losartan 100 mg daily, spironolactone 25 mg daily -- likely restart coreg soon -- BP goals < 175/100, can utilize PRNs if needed # HLD -- continue statin # Nonischemic cardiomyopathy # Chronic heart failure with recovered EF -- last [facility] in 2020 with no significant CAD -- last TTE on 07/27/23 as above -- plan for repeat TTE as above -- currently holding home lasix 40 mg PRN (takes at home for SOB, LE swelling, or weight gain of 3 lbs or more in 1 day) -- admission trop neg # Hx submassive PE (2019) # Hx RLE DVT (2019) -- in setting of femoral replacement for an open fracture -- on eliquis at home as above PULMONARY Resp Min: 12 Max: 29 SpO2 Min: 92 % Max: 100 % Room air Meds: None # AYAD -- will clarify if uses home CPAP -- maintain Sp02 > 92% Mobilize/OOBTC. RENAL Meds: None # Hypomagnesemia, resolved -- Mg 1.6, replete with 4g, now 2.8 -- f/u Mg tonight BMP daily. Monitor I+O. GI and ENDO Meds: Colace 100 mg BID Senna 1 tab BID Levothyroxine 50 mcg daily SSI AC/HS Diet: Adult Diet Regular, Restricted; Regular Liquid; Consistent Carbohydrate IV fluids: SLIV Flushes: n/a Last BM: 08/06 # Nutrition -- passed swallow eval, on consistent carb diet -- bowel reg as above # DM2 -- A1c 6.1 -- holding home glipizide 10 mg daily, home metformin 500 mg BID -- SSI/accuchecks AC/HS -- glucose range last 24h: 104-134, 0 units lispro required # Hypothyroidism -- continue home levothyroxine 50 mcg daily INFECTION RELEVANT/MOST RECENT MICRO LAB DATA: Blood cultures: none Respiratory cultures: none Urinalysis/Urine culture: none Meds: None No active issues. CBC daily. Osorio culture if T > 38.5c. ACCESS Lines PIV x2 Lucio None VTE Prophylaxis Last Venous Doppler: none this admission (prior in 2019 with DVT in right peroneal veins and solealsinus veins) Prophylaxis: SCDs, SQH 5000 units q8h CODE STATUS: Full Code Disposition: NNICU -> TTF stroke neurology Parris Celestin NP Cosigned by Fred Boone MD at 08/08/2023 2:39 PM CDT Associated attestation - Fred Boone MD - 08/08/2023 2:39 PM CDT Attending Attestation I have seen and examined this patient on the day of service. I have reviewed and confirmed the history, physical exam, laboratory and imaging data with the house staff and/or non-physician provider. I have reviewed and discussed my treatment plan with the ICU team and other medical/healthcare economics consultant staffas documented in the referenced note with the exceptions noted below. * Terrence Ambrosio - 08/07/2023 2:50 PM CDT Spiritual Care Note AMISHA Ramirez, [facility] 08/07/23 1450 Time Spent Start Time 1450 Stop Time 1500 Time Calculation (min) 10 min Patient Spiritual Assessment Spirituality Assessed Focus of Care Clinical Encounter Type Visited With Patient and family together Response Type Routine visit Routine Visit Introduction Reason for visit Support;SMART (stroke team) Outcomes and Progress Demonstrating care and respect Achieved Establish rapport and connectedness Achieved Interventions Interventions Offer emotional support;Offer spiritual/lutheran support documented in this encounter H&P Notes * Olivia Red MD - 08/09/2023 9:12 AM CDT Stroke Progress Note Patient Name: Prema Pearce Date of / Age: 11 1940 / 83 y.o. Gender: female Date of Service: 08/08/2023 SUBJECTIVE CHIEF COMPLAINT: Ms. Pearce is a 83 y.o. right handed female who presented 08/07/23 with left- sided weakness, R gaze deviation found to have R M1 occlusion s/p MT with TICI 2c reperfusion 08/07/23, transferred to Stroke service 08/08/23. HPI: Ms. Pearce is an 83-year-old woman with past medical history of right MCA ischemic stroke status post MT in May 2021 (no residual deficits), AFib on apixaban (last took 08/06 a.m.), HTN, T2 DM, hypothyroidism, PE, CHF who presented on 08/07/2023 with left facial droop, left arm and leg weakness, and right gaze deviation. Patient notes symptoms began at 11:30 a.m. while she was getting her hair done at the [employer]. She reports that she would previously felt a left facial droop in 2021 with prior stroke but that [facility] was able to ???pull the stroke out from a tube up my leg.?? She reports she has no baseline neurologic deficits and completes all ADLs and IADLs independently. She does take apixaban for AFib, lastdose 08/02 4:00 a.m.. She denies missed doses. She is aware of deficits and reports recent life stressors. On arrival to ED, patient hypothermic T 96.6??, HR 81, BP 151/113, 97% on RA. EKG demonstrated AFib. Initial NIHSS 17 for gaze, hemianopia, facial palsy, left arm motor, left leg motor, sensoryloss, dysarthria. Patient factor Xa was 0.5. CT head without acute intracranial abnormalities, CTA demonstrated right M1 segment MCA occlusion with core 14, penumbra of 253 mL with a mismatch ratio of 18.1. Patient was a go for mechanical thrombectomy with no significant delays. Exam otherwise notable for triple flexion to noxious stimulus and left upper and left lower extremity. Patient was thentaken to neuro IR with successful 1 pass aspiration of M1 occlusion with TICI 2c reperfusion. Patient was admitted to an ICU for ongoing monitoring and further care. Upon arrival to an ICU, patient opened eyes to voice, regarded on right, some verbal output but oriented with nodding head yes/no. Patient was moderately dysarthric but followed commands. Exam was full strength on right, flexion to noxious stimulus on left upper and left lower extremity. Vital signs otherwise stable and angio site without oozing or hematoma, pulses palpable. Follow-up head CT 24 hours post thrombectomy stable. Patient was started on ASA and moderate intensity statin for age. Patient was recommended for transfer to floor for ongoing neurologic care. Regarding previous stroke, patient presented on 05/25/2021 with left facial droop, slurred speech in the setting of holding apixaban for 1 week for lithotripsy which he had undergone on 05/21. Original indication for anticoagulation with PEs following right knee replacement surgery in May 2019 aswell as atrial fibrillation. Patient underwent mechanical thrombectomy with successful TICI 3 reperfusion of right M2 occlusion. At patient follow-up August 2021, patient had 4/5 strength in distal left lower extremity due to discomfort. Etiology was felt to be related to AFib at that time. Interval History: - No acute events overnight. - transferred to Stroke Neurology team for ongoing care Medications Scheduled Medications: aspirin, 81 mg, oral, Daily atorvastatin, 40 mg, oral, Daily docusate sodium, 100 mg, oral, BID heparin, 5,000 Units, subcutaneous, Q8H MISHA insulin lispro, 0-5 Units, subcutaneous, QID (AC & HS) levothyroxine, 50 mcg, oral, Daily - 0600 senna, 1 tablet, oral, BID sodium chloride 0.9%, 0.5-20 mL, intra-catheter, Q8H MISHA Continuous Medications: PRN Medications: acetaminophen OR [DISCONTINUED] acetaminophen OR [DISCONTINUED] acetaminophen sodium chloride 0.9% dextrose OR dextrose glucagon hydrALAZINE labetalol ondansetron sodium chloride 0.9% trimethobenzamide Objective 24hr Min/Max: Temp Min: 36.6 ??C (97.9 ??F) Max: 37.3 ??C (99.1 ??F) Pulse Min: 70 Max: 105 BP Min: 107/60 Max: 187/135 Resp Min: 12 Max: 29 SpO2 Min: 92 % Max: 99 % I/O: Intake/Output Summary (Last 24 hours) at 08/08/2023 1509 Last data filed at 08/08/2023 0000 Gross per 24 hour Intake 410 ml Output 1300 ml Net -890 ml Physical exam: GEN: In no acute distress, sitting comfortably in chair HENT: Normocephalic, atraumatic, mucous membranes moist EYES: Anicteric sclera PULM: No increased work of breathing CV/EXT: No visible edema SKIN: Dry, no suspicious rashes or lesions noted PSYCH: Calm and cooperative, eye contact appropriate for medical condition NEURO: COGNITION: Alert, oriented to conversation, language fluent CRANIAL NERVES: EOM grossly intact, face activates symmetrically, no dysarthria, hearing grossly intact MOTOR: 4/5 in L biceps/triceps, otherwise 5/5 throughout (somewhat pain limited in LLE from prior knee replacement) SENSORY: SILT COORDINATION: No gross ataxia noted GAIT: Deferred Lab/Radiology/Diagnostic Review: Recent Labs Lab Units 08/07/232031 WBC K/cumm 8.4 HEMOGLOBIN g/dL 12.4 HEMATOCRIT % 37.8 PLATELETS K/cumm 220 Recent Labs Lab Units 08/07/23 1435 APTT sec 30 INR 1.21* Recent Labs Lab Units 08/08/23 1232 08/08/23 0859 08/07/23 2032 SODIUM mmol/L -- -- 139 POTASSIUM PLASMA mmol/L -- -- 4.3 CHLORIDE mmol/L -- -- 104 CO2 mmol/L -- -- 25 ANIONGAP mmol/L -- -- 10 GLUCOSE mg/dL -- -- 128 POC GLUCOSE MONITOR mg/dL 133 < > -- BUN SERUM mg/dL -- -- 13 CREATININE mg/dL -- -- 0.57* CALCIUM mg/dL -- -- 9.5 ALBUMIN g/dL -- -- 4.1 ALK PHOS Units/L -- -- 73 ALT Units/L -- -- 22 AST Units/L -- -- 25 BILIRUBIN TOTAL mg/dL -- -- 0.6 < > = values in this interval not displayed. Recent Labs Lab Units 08/07/23 203 MAGNESIUM mg/dL 2.8* Recent Labs Lab Units 08/07/23 1435 HEMOGLOBIN A1C % 6.1* Recent Labs Lab Units 08/07/23 1435 CHOLESTEROL mg/dL 94 TRIGLYCERIDES mg/dL 145 HDL mg/dL 32* Neuro Imaging CT Head WO Contrast Result Date: 08/08/2023 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 Dictated by: Lilibeth Zelaya MD, PhD The radiology attending physician has personallyreviewed this study, and had reviewed and/or edited this written report and agrees with it. Electronically signed by: Delmy Wheeler M.D. IR Percutaneous Arterial Thrombectomy, Intracranial Result Date: 08/08/2023 1. Initial angiography demonstrated a right middle cerebral artery M1 segment occlusion. 2. Successful 1-pass aspiration mechanical thrombectomy of the right middle cerebral artery. 3. Final angiography demonstrated reperfusion through the right middle cerebral artery territory with some slow flowing distal cortical vessels consistent with a eTICI 2C reperfusion. PLAN: 1. Admit to neuro-ICU for post-mechanical thrombectomy acute ischemic stroke care. 2. Lie flat with right leg straight for two hours. These results were discussed with the neuro-ICU team and the patient's family upon conclusionof the case. Dictated by: Mor Riley MD The radiology attending physician has personally reviewed this study, and had reviewed and/or edited this written report and agrees with it. Electronically signed by: Stuart Simental M.D. CTA/CTP Rapid Stroke (C) Result Date: 08/07/2023 1. No evidence of acute intracranial hemorrhage. 2. Distal right M1 occlusion with poor collateral flow. Associated large right cerebral hemispheric area of ischemic penumbra, with small core infarct. 3. Chronic/incidental findings, as described above. Critical findings were discussed with Chris, stroke resident by Emanuel Lopes MD at 08/07/2023 12:35 PM. Dictated by: Paxton Lopes MD The radiology attending physician has personally reviewed this study, and had reviewed and/or edited this written report and agrees with it. Electronically signed by: Yonis Holguin M.D. XR chest 1 view (Portable) Result Date: 08/07/2023 The current study is compared with the prior radiograph dated 05/25/2021. Calcified nodule in the peripheral right midlung likely represents old granulomatous disease. No pulmonary edema. No pneumothorax or pleural effusion. Stable moderate cardiomegaly. Tortuous atherosclerotic aorta. Dictated by:Mehul Torres MD The radiology attending physician has personally reviewed this study, and had reviewed and/or edited this written report and agrees with it. Electronically signed by: Tommy Dennison M.D. I have reviewed the above imaging/diagnostic results and discussed with my attending. Assessment and Plan Ms. Pearce is a 83 y.o. right handed woman with past medical history of past medical history of right MCA ischemic stroke status post MT in May 2021 (no residual deficits), AFib on apixaban (last took 08/06 a.m.), HTN, T2 DM, hypothyroidism, PE, CHF who presented on 08/07/2023 with left facial droop, left arm and leg weakness, and right gaze deviation. The patient was a NO GO for thrombolytics and GO for thrombectomy 08/06 with TICI 2c reperfusion. Impression/Etiology: Ms. Pearce presents with left sided weakness that localizes to the Right MCA territory. Etiologies highest on the differential for consideration per TOAST criteria include: cardioembolism. The patient will benefit from amelioration of stroke risk factors and optimization of stroke secondary prevention. The patient will be started on Aspirin 81mg Daily and moderate intensity statin due to age. # R M1 occlusion s/p MT TICI 2c reperfusion # hx of R MCA occlusion # Atrial fibrillation on apixaban Etiology: cardioembolism Risk Factors: Age > 55, hypertension, dyslipidemia, diabetes mellitus, prior stroke, atrial fibrillation, congestive heart failure, and obstructive sleep apnea Work up: - LDL 33, a1C 6.1 - EKG atrial fibrillation (known) - HCT 08/07 unchanged L parietal occipital chronic infarct w associated laminar necrosis and/or dystrophic calcifications - CTA 08/06 distal R M1 occlusion w poor collateral flow. Associated large R cerebral hemispheric area of ischemic penumbra w small core infarct - TTE 07/27/23: LVEF 66%, LA dilation nor masses/vegetations/thrombi, reduced global LV myocardial longitudinal function and strain pattern - Loop on discharge: No Secondary Prevention: - ASA 81mg - Atorvastatin 40mg Daily Blood Pressure: - Stroke BP Goal: Normotension <140/90 - as managed under HTN Risk Factor/Etiology Work-up: - Monitor on telemetry Lifestyle modifications: Encourage smoking cessation if applicable, regular exercise, a healthy diet, and limited alcohol intake. Consults: SMART (Contaminated Land Consultant, PT/OT, [employer] VESSEL OPERATOR, Spiritual Care) #Hypertension Blood pressure on admission was 151/113. Home blood pressure medications are carvedilol 12.5mg BID,losartan 100mg daily. Pt with labile blood pressure following procedure, will restart in tiered fashion w goal normotension <130/90 following thrombectomy. - restart carvedilol 12.5mg BID #Hyperlipidemia LDL on admission was 33. Goal LDL for secondary stroke prevention is <70. - atorvastatin 40mg daily #T2DM Home meds glipizide 10mg daily, metformin 500mg BID - SSI TID AC while inpatient #hypothyroidism - continue home levothyroxine 50mcg #PE - hold AC in setting of acute stroke, restart 4 to 14d after ischemic event #CHF GDMT with carvedilol 12.5mg BID, losartan 100mg qD, spironolactone 25mg qD - restart in tiered fashion as above to prevent hypotension iso recent ischemic stroke #anxiety - hold home alprazolam 0.5mg BID PRN Disposition: Pending PT/OT Evaluation Code Status: Full Code Diet: Adult Diet Regular, Restricted; Regular Liquid; Consistent Carbohydrate DVT Prophylaxis: Heparin Lines/Tubes: Peripheral IV 05/25/21 18 G Right Antecubital (Active) Number of days: 805 Peripheral IV 08/07/23 18 G Left Antecubital (Active) Number of days: 1 External Urinary Device (Active) Number of days: 1 Olivia Red MD Neurology Resident Physician [facility] Cosigned by Clarence Guido MD at 08/09/2023 7:51 PM CDT Associated attestation - Clarence Guido MD - 08/09/2023 7:51 PM CDT I have seen and examined the patient on 08/09/23. I agree with the findings and plan of care as documented in the resident's/fellow's note.. * Fred Boone MD - 08/07/2023 6:01 PM CDT Brief Neurocritical Care Attending Note Prema Pearce [id number] Brief Attending Documentation Admission Diagnoses: Acute ischemic stroke due to R M1 occlusion HPI: 83 ytear old woman with a past medical history of left hemispheric ischemic infarction, atrial fibrillation on apixaban, submassive PE, HTN, HLD, NICM, AYAD, T2DM, hypothyothyroidism, GERD, anxiety who is admitted with a RM1 occlusion. Not given TNK given recent apixaban dose taken. Single pass MT of R M1 TICI 2C reprefusion. Temp: [35.9 ??C (96.6 ??F)-36.7 ??C (98.1 ??F)] 36.7 ??C (98.1 ??F) Pulse: [78-94] 78 Resp: [12-21] 12 BP: (134-157)/(74-113) 152/92 Intake/Output Summary (Last 24 hours) at 08/07/2023 1802 Last data filed at 08/07/2023 1341 Gross per 24 hour Intake -- Output 5 ml Net -5 ml Physical Examination: HEENT: Normocephalic, atraumatic. Cardiovascular: Regular rate and rhythm. Normal S1 and S2. No murmurs rubs or gallops Pulmonary: Clear to auscultation bilaterally. No wheezing, rales or rhonchi. GI: Soft, nontender, nondistended. Normoactive bowel sounds. No hepatomegaly Ext: Atraumatic, no pitting edema Neurologic: Alert and oriented to person, place, and date. Briskly regards and follows commands. Pupils equal and reactive to light bilaterally Full ocular movements without gaze preference or deviation Left facial weakness Cough and intact LUE 4/5 RUE 4+/5 LLE 4/5 RLE 4+/5 Sensation intact to light touch in all four extremities Current Medication List: I have reviewed the patient's current active medication list and discussed it with our clinical pharmacist. Labs/Microbiology: I have reviewed all laboratory/microbiology results over the past 24 hours. Imaging: I have reviewed all imaging over the past 24 hours. Assessment and Plan of Critical Problems: # Acute Ischemic Stroke - Secondary to R M1 occlusion sp 1 pass MT with TICI 2C reperfusion. - ASA/Atorvastatin - Repeat Head CT tomorrow - Will risk stratify for resumption of oral anticoagulation and or heparin gtt - TTE to evaluate for thrombus - SMART # Anxiety - hold home alrazolam and monitor for withdrawal # NICM - TTE pending. Holding home furosemide. # AYAD - start home CPAP if able to clarify with the patient # T2DM - hold home glipizide as well as metformin. Accuchecks + SSI Prophylaxis: SCDs. Subcutaneous heparin Access:PIV Code status: Full code Disposition: Intensive Care Unit Attending Critical Care Attestation Critical Care Time: I have spent 41 minutes in full attendance with this critically ill patient making frequent reassessments and decisions regarding this patient's complex medical care. Critical care time was exclusive of separately billable procedures, treating other patients and teaching time. Critical care was necessary to treat or prevent imminent or life-threatening clinical/neurological deterioration due to: Active Critical Care Problem(s): - Acute ischemic stroke due to R M1 occlusion with close monitoring for cerebral edema I have seen and examined this patient on the day of service on 08/07/2023. I have reviewed and confirmed the history, physical exam, laboratory and radiographic data with the house staff and/or non-physician provider. I have reviewed and discussed my treatment plan with the ICU team and other medical/healthcare economics consultant staff as documented in the referenced note except for what is documented here. 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 EMS was called and the patient arrived to [facility] ED. On arrival was afebrile, HR 81, BP 151/113, 97% on RA. In afib. Alert, oriented x3, follows commands,mild dysarthria, PERRL, R gaze and does not cross midline, L facial droop, triple flex to nox stim in LUE/LLE, 5/5 on RUE/RLE. CTA/CTP shows distal R M1 occlusion, large right cerebral hemispheric area of ischemic penumbra (253 ml), small core infarct (14 ml), mismatch ratio 18.1. No go for TNK given last dose of eliquis this morning. Intubated with succinylcholine for thrombectomy. Underwent thrombectomy, successful single pass thrombectomy of right MCA M1 segment, TICI 2c reperfusion. Final angio with no significant ICA stenosis. Extubated. Arrives to NNICU s/p thrombectomy. Upon arrival to NNICU the patient opens eyes to voice, regards on R, some verbal output but oriented with nodding head yes/no. Moderately dysarthric. Follows commands. 5/5 on RUE/RLE. Flexion to nox stim on LUE/LLE. VS: T 35.9c, HR 79, RR 17, Sp02 100%, BP 157/95 (MAP 110). R groin angio site no oozing or hematoma, pulses palpable. Past Medical History: Diagnosis Date Adrenal nodule (HCC) Anxiety Aortic stenosis, moderate Atrial fibrillation (CMS/HCC) (HCC) Cardiomyopathy (HCC) Diabetes mellitus (HCC) Dyslipidemia GERD (gastroesophageal reflux disease) Heart murmur HFrEF (heart failure with reduced ejection fraction) (CMS/HCC) (HCC) Hyperlipidemia Hypertension Hypothyroidism Insomnia Mitral regurgitation NSTEMI (non-ST elevated myocardial infarction) (CMS/HCC) (HCC) Obesity AYAD on CPAP Patellar sleeve fracture of left knee PONV (postoperative nausea and vomiting) Pulmonary embolism (HCC) Sleep apnea Stroke (HCC) Zenker's diverticulum Past Surgical History: Procedure Laterality Date BREAST LUMPECTOMY CHOLECYSTECTOMY HAND SURGERY Left plate & screws HYSTERECTOMY INCISION AND DRAINAGE FEMUR Left 05/22/2019 KIDNEY STONE SURGERY Social History Tobacco Use Smoking status: Never Smokeless tobacco: Never Substance and Sexual Activity Drug use: Never Sexual activity: Defer Alcohol Use: Unknown (05/19/2022) AUDIT-C Frequency of Alcohol Consumption: Not on file Average Number of Drinks: Patient does not drink Frequency of Binge Drinking: Not on file [...] by TW Conv) Anesthesia problems Neg Hx Allergies Allergen Reactions Amlodipine Shortness of breath Prasanth Inhibitors Cough Reaction: COUGH, Citalopram Lisinopril Lisinopril-Hydrochlorothiazide Dizziness and Nausea only Dizzy, nauseated Medications Prior to Admission Medication Sig Dispense Refill Last Dose ALPRAZolam (XANAX) 0.5 mg tablet TAKE 1 TABLET (0.5 MG TOTAL) BY MOUTH 2 (TWO) TIMES A DAY NEEDED FOR ANXIETY. 60 tablet 0 blood glucose diagnostic (glucose blood) strip One strip daily to check glucose 100 each 1 blood-glucose meter misc Use daily or as directed for monitoring of diabetes. 1 each 0 CALCIUM CARBONATE ORAL Take 600 mg by mouth 2 (two) times a day carvediloL (COREG) 12.5 mg tablet Take 1 tablet (12.5 mg total) by mouth 2 (two) times a day with meals 180 tablet 3 cholecalciferol (VITAMIN D-3) 2000 unit tablet Take by mouth Eliquis 5 mg tablet TAKE 1 TABLET BY MOUTH TWICE A DAY 60 tablet 11 furosemide (LASIX) 40 mg tablet Take 1 tablet (40 mg total) by mouth as needed (shortness of breath, lower extremity or abdominal swelling, or weight gain of 3 lbs or more in 1 day) (Patient not taking: Reported on 07/27/2023) 90 tablet 2 glipiZIDE (GLUCOTROL) 10 mg tablet TAKE 1 TABLET BY MOUTH TWICE A DAY BEFORE BREAKFAST AND LUNCH (Patient taking differently: Take 1 tablet (10 mg total) by mouth daily) 180 tablet 1 lancets misc 1 each by other route daily 100 each 1 levothyroxine (SYNTHROID) 50 mcg tablet TAKE 1 TABLET BY MOUTH EVERY DAY 90 tablet 0 losartan (COZAAR) 100 mg tablet TAKE 1 TABLET BY MOUTH EVERY DAY 90 tablet 3 metFORMIN (GLUCOPHAGE) 500 mg tablet TAKE 1 TABLET BY MOUTH TWICE A DAY WITH FOOD 180 tablet 1 ugqdqbab-gnx-ymup-FA-lutein 8 mg iron-400 mcg-300 mcg tablet Take by mouth rosuvastatin (CRESTOR) 20 mg tablet TAKE 1 TABLET BY MOUTH EVERY DAY 90 tablet 3 spironolactone (ALDACTONE) 25 mg tablet TAKE 1 TABLET (25 MG TOTAL) BY MOUTH DAILY. 90 tablet 3 Review of Systems: All other systems negative except as indicated in HPI. Vitals 24hr Temp Min: 35.9 ??C (96.6 ??F) Max: 36.4 ??C (97.5 ??F) Pulse Min: 79 Max: 81 NIBP BP Min: 151/113 Max: 157/95 MAP (mmHg) Av Min: 110 Max: 110 A-line No data recorded I/O: Intake/Output Summary (Last 24 hours) at 08/07/2023 1436 Last data filed at 08/07/2023 1341 Gross per 24 hour Intake -- Output 5 ml Net -5 ml UOP: none documented so far EBL: 5 ml LABS Recent Labs Lab Units 08/07/23 1402 08/07/23 1215 08/07/23 1211 SODIUM mmol/L -- 140 -- POTASSIUM PLASMA mmol/L -- 4.4 -- CHLORIDE mmol/L -- 107 -- CO2 mmol/L -- 23 -- ANIONGAP mmol/L -- 10 -- GLUCOSE mg/dL -- 116 -- POC GLUCOSE MONITOR mg/dL 109 -- 115 BUN SERUM mg/dL -- 18 -- CREATININE mg/dL -- 0.56* -- CALCIUM mg/dL -- 9.9 -- Recent Labs Lab Units 08/07/23 1215 08/07/23 1212 WBC K/cumm 7.9 -- HEMATOCRIT % 38.3 -- HEMOGLOBIN g/dL 12.5 -- PLATELETS K/cumm 229 -- APTT sec 32 -- INR -- 1.0 Recent Labs Lab Units 08/07/23 1215 ALK PHOS Units/L 82 BILIRUBIN TOTAL mg/dL 0.5 TOTAL PROTEIN g/dL 7.4 ALBUMIN g/dL 4.4 ALT Units/L 21 AST Units/L 22 IMAGING (Most recent) NEURO IMAGING: CTA/CTP Rapid Stroke 08/06 at 1229 IMPRESSION: 1. No evidence of acute intracranial hemorrhage. 2. Distal right M1 occlusion with poor collateral flow. Associated large right cerebral hemisphericarea of ischemic penumbra, with small core infarct. 3. Chronic/incidental findings, as described above. PHYSICAL EXAM: General: Laying in bed, NAD HEENT: Mucous membranes moist, sclera anicteric Cardiac: Irregularly irregular rhythm, no M/R/G Pulmonary: Even, unlabored respirations. Symmetric chest rise and fall. Lungs clear to auscultationanterior lopes. Abdomen: Non-distended in appearance, bowel sounds present, soft/non-tender to palpation. No massesor HSM. Ext: No peripheral edema or digital cyanosis. R groin angio site no oozing or hematoma. Pulses palpable. Skin: No rashes or lesions NEURO EXAM Mental Status Eyes open to voice, regards, follows commands, minimal verbal output but nods appropriately to person, place, month, year Cranial Nerves PERRL, R gaze, does not cross midline to L, L facial droop, mild/moderate dysarthria, spontaneous corneals and cough Motor 5/5 RUE, RLE Flexion to nox stim on LUE, LLE. Has L sided neglect. NEUROLOGICAL Meds: ASA 81 mg daily Atorvastatin 40 mg daily PRN tylenol 650 mg q4h # R M1 occlusion s/p MT TICI 2c -- likely in setting of afib -- No TNK due to eliquis. Successful MT TICI 2C 1 pass aspiratioin. -- stroke workup: A1c 6.1, LDL 33, TTE. Was in afib on arrival. Final angiography with no significant stenosis -- ASA/atorvastatin as above -- holding home eliquis at this time pending evolution of her stroke. Of note, anti xa on arrival was 0.5 -- plan for HCT tomorrow morning to follow up -- BP goal < 175/100 -- NC q1h -- SMART consult # Anxiety -- hold home PRN xanax CARDIOVASCULAR and HEME Meds: None EKG: Afib TTE 07/27/23 SUMMARY: Rhythm is in AFib. LV cavity [...] cava. Normal aorta. No significant changes noted. # Afib -- currently rate controlled -- on eliquis at home, also takes coreg as above, likely resume beta kimberley -- has had hx of cardioversion and sotalol initiation around 2009 and d/c'd as of 2018. Treated with rate control until submassive PE in 2019, then amio initiated but was d/c'd in 2019 due to GI sideeffects. -- monitor on tele # HTN -- holding home coreg 12.5 mg BID, losartan 100 mg daily, spironolactone 25 mg daily -- BP goals < 175/100, can utilize PRNs if needed # HLD -- continue statin # Nonischemic cardiomyopathy # Chronic heart failure with recovered EF -- last [facility] in 2020 with no significant CAD -- last TTE on 07/27/23 as above -- plan for repeat TTE as above -- currently holding home lasix 40 mg PRN (takes at home for SOB, LE swelling, or weight gain of 3 lbs or more in 1 day) -- admission trop neg # Hx submassive PE (2019) # Hx RLE DVT (2019) -- in setting of femoral replacement for an open fracture -- on eliquis at home as above PULMONARY Resp Min: 17 Max: 20 SpO2 Min: 97 % Max: 100 % Room air Meds: None # AYAD -- will clarify if uses home CPAP -- maintain Sp02 > 92% Mobilize/OOBTC. RENAL Meds: None # Hypomagnesemia -- Mg 1.6, replete with 4g -- f/u Mg tonight BMP daily. Monitor I+O. 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 If not, likely place NGT and start TF -- bowel reg as above # DM2 -- A1c 6.1 -- holding home glipizide 10 mg daily, home metformin 500 mg BID -- SSI/accuchecks q6h # Hypothyroidism -- continue home levothyroxine 50 mcg daily INFECTION RELEVANT/MOST RECENT MICRO LAB DATA: Blood cultures: none Respiratory cultures: none Urinalysis/Urine culture: none Meds: None No active issues. CBC daily. Osorio culture if T > 38.5c. ACCESS Lines PIV x2 Lucio None VTE Prophylaxis Last Venous Doppler: none this admission (prior in 2019 with DVT in right peroneal veins and solealsinus veins) Prophylaxis: SCDs, SQH 5000 units q8h CODE STATUS: Full Code Disposition: NNICU Parris Celestin NP Cosigned by Fred Boone MD at 08/07/2023 6:18 PM CDT documented in this encounter Consult Notes * Adeline Dolores, ALEJO - 08/08/2023 8:41 AM CDTAssociated Order(s): IP CONSULT TO NUTRITION SERVICES NUTRITION ASSESSMENT Nutrition Status: Patient appears adequately nourished at this time. REASON FOR ASSESSMENT: Consult/Referral - Stroke Protocol Encounter Date: 08/08/23 8:41 AM Admission Date: 08/07/2023 LOS: 1 days HPI: 83-year-old female with past medical history of hypertension, atrial fibrillation on Eliquis, cardiomyopathy with recovered EF, aortic stenosis, previous stroke (Left M2 s/p thrombectomy with TICI3 flow, 2021) who presents to the ED with facial droop and left-sided weakness. Patient was getting herhair done when she suddenly had right-sided gaze deviation with right facial droop and left-sided flaccidity. Objective Past Medical History: Diagnosis Date Adrenal nodule (HCC) Anxiety Aortic stenosis, moderate Atrial fibrillation (CMS/HCC) (HCC) Cardiomyopathy (HCC) Diabetes mellitus (HCC) Dyslipidemia GERD (gastroesophageal reflux disease) Heart murmur HFrEF (heart failure with reduced ejection fraction) (CMS/HCC) (HCC) Hyperlipidemia Hypertension Hypothyroidism Insomnia Mitral regurgitation NSTEMI (non-ST elevated myocardial infarction) (CMS/HCC) (HCC) Obesity AYAD on CPAP Patellar sleeve fracture of left knee PONV (postoperative nausea and vomiting) Pulmonary embolism (HCC) Sleep apnea Stroke (HCC) Zenker's diverticulum Past Surgical History: Procedure Laterality Date BREAST LUMPECTOMY CHOLECYSTECTOMY HAND SURGERY Left plate & screws HYSTERECTOMY INCISION AND DRAINAGE FEMUR Left 05/22/2019 KIDNEY STONE SURGERY Social History Tobacco Use Smoking status: Never Smokeless tobacco: Never Substance and Sexual Activity Drug use: Never Sexual activity: Defer Alcohol Use: Unknown (05/19/2022) AUDIT-C Frequency of Alcohol Consumption: Not on file Average Number of Drinks: Patient does not drink Frequency of Binge Drinking: Not on file MEDICATION/LAB REVIEW: Scheduled Med's: aspirin, 81 mg, oral, Daily atorvastatin, 40 mg, oral, Daily docusate sodium, 100 mg, oral, BID heparin, 5,000 Units, subcutaneous, Q8H MISHA insulin lispro, 0-5 Units, subcutaneous, QID (AC & HS) levothyroxine, 50 mcg, oral, Daily - 0600 senna, 1 tablet, oral, BID sodium chloride 0.9%, 0.5-20 mL, intra-catheter, Q8H MISHA Continuous Infusions: PRN Med's: acetaminophen OR [DISCONTINUED] acetaminophen OR [DISCONTINUED] acetaminophen sodium chloride 0.9% dextrose OR dextrose glucagon hydrALAZINE labetalol ondansetron sodium chloride 0.9% trimethobenzamide Recent Labs Lab Units 08/07/23203108/07/23 1435 SODIUM mmol/L 139 137 POTASSIUM PLASMA mmol/L 4.3 4.9 CHLORIDE mmol/L 104 107 CO2 mmol/L 25 23 BUN SERUM mg/dL 13 18 CREATININE mg/dL 0.57* 0.63 [id number] mL/min/1.73 m2 >90 89 CALCIUM mg/dL 9.5 9.2 ALBUMIN g/dL 4.1 4.0 PHOSPHORUS PLASMA mg/dL 3.0 2.9 MAGNESIUM mg/dL 2.8* 1.6 Recent Labs Lab Units 08/07/23203108/07/23200008/07/23 1713 08/07/23 1435 08/07/23 1402 08/07/23 1215 08/07/23 1211 GLUCOSE mg/dL 128 -- -- 117 -- 116 -- POC GLUCOSE MONITOR mg/dL -- 104 134 -- 109 -- 115 ALT Date Value Ref Range Status 08/07/2023 22 7 - 45 Units/L Final AST Date Value Ref Range Status 08/07/2023 25 10 - 45 Units/L Final Alk phos Date Value Ref Range Status 08/07/2023 73 40 - 130 Units/L Final Lab Results Component Value Date HGBA1C 6.1 (H) 08/07/2023 HDL 32 (L) 08/07/2023 LDLCALC 33 08/07/2023 CHOL 94 08/07/2023 TRIG 145 08/07/2023 NURSING ASSESSMENT: Donte Scale Score: 14 Vital Signs BP: 127/65 Temp: 37.1 ??C (98.8 ??F) Pulse: 88 Resp: 22 SpO2: 99 % Intake/Output Summary (Last 24 hours) at 08/08/2023 0841 Last data filed at 08/08/2023 0000 Gross per 24 hour Intake 410 ml Output 1305 ml Net -895 ml Adult Malnutrition Scoring Tool (MST) What diet do you follow at home?: regular Have You Recently Lost Weight Without Trying?: No Have you been eating poorly because of a decreased appetite?: No Malnutrition Screening Tool (MST) Score: 0 Anthropometrics Weight: 87.5 kg (192 lb 14.4 oz) Admission Weight : 87.5 kg Weight Change: -2.85 kg (-6.29 lbs) IBW/kg (Calculated) : 49.9 kg Height: 157.5 cm (5' 2 ) Weight in (lb) to have BMI = 25: 136.4 BMI (Calculated): 35.3 Wt Readings from Last 10 Encounters: 08/07/23 87.5 kg (192 lb 14.4 oz) 07/27/23 85.7 kg (189 lb) 03/03/23 84.5 kg (186 lb 3.2 oz) 02/03/23 83 kg (183 lb) 10/23/22 80.3 kg (177 lb) 10/09/22 80.6 kg (177 lb 12.8 oz) 08/13/22 82.1 kg (181 lb) 07/28/22 82.1 kg (181 lb) 05/19/22 78.8 kg (173 lb 12.8 oz) 02/13/22 76.1 kg (167 lb 12.8 oz) Dietary Orders (From admission, onward) Start Ordered 08/08/23 0842 Oral Nutrition Supplements ([facility]) Select Supplement: Ensure Max - Lennie, Ensure High Protein - Lennie; Quantity (# of cans): 1 can All Meals Comments: 1 per meal per pt request Question Answer Comment ([facility]) Select Supplement: Ensure Max - Lennie ([facility]) Select Supplement: Ensure High Protein - Lennie Quantity (# of cans): 1 can 08/08/23 0841 08/07/23 2100 Bedtime snack At bedtime Comments: If bedtime BG is less than 100mg/dl, give patient a 15 gram carbohydrate snack. 08/07/23 1721 08/07/23 1734 Adult Diet Regular, Restricted; Regular Liquid; Consistent Carbohydrate Diet effective now Question Answer Comment ([facility]) Diet type Regular ([facility]) Diet type Restricted Fluid Consistency: Regular Liquid Diabetic: Consistent Carbohydrate 08/07/23 8443 Allergies: IMPRESSION: Saw pt stroke for consult. 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 Reports diet education for diabetes in recent past. Eats aot of Lean Cuisine Meals. Appetite has been poor the past few days. Agrees to chocoale Ensure Max (low carb)or High Protein as needed. Denied: -GI issues -Difficulty chewing/swallowing -Food allergies/intolerances. +BM 5-24 (loose) Labs noted. Glucose 128 (5-24). A1c at 6.1. ASPEN MALNUTRITION ASSESSMENT: Not indicated NUTRITION FOCUSED PHYSICAL EXAM: Not clinically indicated, no concerns for malnutrition at this time. NUTRITION DIAGNOSIS: Nutrition Diagnosis 1: Inadequate oral intake Related to: Acute illness/injury Evidenced by: Patient interview INTERVENTION(S): Summary: Assess for nutrition changes, Encouragement, Education, nutrition, Meals and snacks, Initial assessment, Regular weights Continue Consistent Carb diet. Encourage good PO intake of meals and snacks. Document po intakes all meals Provide Ensure Max or High Protein supplements as requested. Recommend obtaining weekly scale weights as able to monitor trend. Monitor electrolytes, replete as needed. Discussed healthy eating for stoke prevention. Encouraged eating 3 meals/day for blood sugar control and appropriate snacking. Recommend 60 G carb/meal and 15 G per snack. Increase fiber to 30 g a day. Avoid saturated and trans fat foods such as fatty meat, full fat dairy, and fried foods. Choose lean meats, poultry (chicken and turkey), fish, beans, eggs, and nuts. Healthy fats include olive oil and canola oil. Read the nutrition facts label on packages for serving size, total fat (avoid items with over 20% DV), limit sodium to 2,000 mg daily (500-700 mg per meal). Limit salt shaker. Handout provided. RD following GOAL(S): Oral intake to meet 75% estimated nutritional needs by next assessment MONITORING/EVALUATION: Appetite, Plan of care, PO intake, Stool patterns, Diet-related questions, Weight changes, Labs Dolores Lr RD * Ivonne Perez MD - 08/07/2023 12:28 PM CDT Hyperacute Stroke Team - HASTE Consult Note Initial information: Narrative: Ms. Pearce is a 83 y.o. female who presents as an acute stroke page. Requesting provider: Kassy Reason for consult: Acute stroke suspected Page time (24h format): 08/07/2023 11:57 Last known well Date Last Known Well : 08/07/23 Time Last Known Well: 1130 Discovery of Symptoms - Date: 08/07/23 Discovery of Symptoms - Time: 1130 (08/07/23 1208) Chief complaint: Left sided weakness and R gaze deviation HPI: Prema Pearce is a 83 y.o. woman w PMHx of stroke s/p MT in May 2021, Afib on Eliquis (last took 08/06 AM), HTN, T2Dm, hypothyroidism, PE, CHF who presents with left facial droop, left arm and leg weakness, and right gaze deviation. 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 She does report that she had previously had a left facial droop in 2021 with a prior stroke but that [facility] was able to pull the stroke out from a tube up my leg . She reports she has no baseline neurologic deficits and completes all her ADLs and iADLs independently. She does take Eliquis for Afib and last took it 08/06 AM. She denies missing any doses at all. She is aware of her deficits and reports a lot of life stressors recently. On arrival to ED, afebrile, HR 81, BP 151/113, 97% on RA. She was in Afib. Stroke risk factors: Atrial Fibrillation, CHF, Diabetes, Hyperlipidemia, Hypertension, and Stroke/TIA History Notable home meds (i.e., anticoagulation): apixaban (eliquis) Past medical history, past surgical history, current medications, allergies, family history and social history were reviewed, and are noted at the end of this note. Vitals: 08/07/23 1400 BP: 157/95 Pulse: 79 Resp: 17 Temp: (!) 35.9 ??C (96.6 ??F) SpO2: 100% NIH Stroke Scale Interval: Baseline Level of Consciousness (1a.): Alert, keenly responsive LOC Questions (1b.): Answers both questions correctly LOC Commands (1c.): Performs both tasks correctly Best Gaze (2.): Forced deviation Visual (3.): Complete hemianopia Facial Palsy (4.): Complete paralysis of one or both sides Motor Arm, Left (5a.): No effort against gravity Motor Arm, Right (5b.): Drift Motor Leg, Left (6a.): No effort against gravity Motor Leg, Right (6b.): No drift Limb Ataxia (7.): Absent Sensory (8.): Fbjn-cp-hchvxolp sensory loss, patient feels pinprick is less sharp or is dull on theaffected side, or there is a loss of superficial pain with pinprick, but patient is aware of being touched Best Language (9.): No aphasia Dysarthria (10.): Uukz-wd-ubkzhjgm dysarthria, patient slurs at least some words and, at worst, canbe understood with some difficulty Extinction and Inattention (11.) (Formerly Neglect): Visual, tactile, auditory, spatial, or personal inattention or extinction to bilateral simultaneous stimulation in one of the sensory modalities Total: 17 (08/07/23 1424) Espitia labs (FSBG, INR, platelets, Xa): Lab Results Lab Value Date/Time GLUCOSE 109 08/07/2023 1402 GLUCOSE 116 08/07/2023 1215 GLUCOSE 121 (H) 02/23/2023 1101 INR 1.0 08/07/2023 1212 INR 1.2 05/25/2021 2312 INR 2.2 (H) 05/19/2019 1134 HCT findings: NAIA Thrombolytic (alteplase/tenecteplase) decision: Thrombolytic decision: NO GO. Rationale: Patient on DOAC therapy, with lab values outside protocol Thrombolytic decision time (24 hour format): 12:10 Thrombolytic bolus time (24 hour format): N/A, thrombolytics not given BP prior to thrombolytic bolus: N/A, thrombolytics not given Reason for thrombolytic delay (>30 mins efbi-lh-oiqzdk, if applicable): N/A, patient did not receive thrombolytics Thrombectomy decision: LVO on CTA?: Yes, Location: MCA, M1 segment CTA read time/fellow: time: 12:35, fellow: Moses CTP: Core volume: 14 mL Penumbra volume: 253 mL Mismatch ratio: 18.1 Baseline functional status: MRS 0: The patient has no symptoms. Intervention: GO Neuro-IR contact time: Called at (hh:mm): 12:24 Reason for thrombectomy attempt delay (>90 minutes rkqu-ix-olyxxswt, if applicable): N/A: Patient did not receive thrombectomy or no significant delays Hyperacute MRI: Hyperacute MRI Indication: Not performed Findings: N/A, not performed Wake-up stroke: Time of symptom discovery (24h format): N/A, patient not a candidate for WAKE-UP protocol DWI-FLAIR mismatch: N/A, patient not a candidate for protocol MRI read time/fellow: N/A, patient was not a candidate for protocol Physical Examination: BP 157/95 Pulse 79 Temp (!) 35.9 ??C (96.6 ??F) (Oral) Resp 17 Ht 157.5 cm (5' 2 ) Wt 90.4 kg (199 lb 3.2 oz) SpO2 100% BMI 36.43 kg/m?? GEN: NAD HEENT: NC/AT, MMM CV: Regular rate and rhythm PULM: No increased work of breathing ABD: Soft, nontender, nondistended EXT: Warm and well-perfused SKIN: Warm and dry Neurologic Examination: Mental status: Awake, Alert, Oriented x 3 (person, place and time) Speech: Very mild dysarthria. Needs mild redirection within scope of very loud and noisy room for stroke code, but speaking in full sentences and following commands appropriately Cranial Nerves: II: Pupils equal and reactive bilaterally, visual lopes full and forced right gazedeviation, cannot cross midline OU. Reports decreased visual lopes in temporal left visual field bilaterally. Marked left facial droop that does affect eye closure somewhat, but lower face is more affected than upper face. Motor: 5/5 RUE and RLE. Triple flex to nox stim LUE and LLE Sensory: Sensory deficit present: denies feeling light touch in LUE and LLE. Does yell ouch to nox stim in LUE and LLE. Intact light touch RUE and RLE Coordination Gait: No dysmetria on FNF on RUE, unable to participate on LUE Inattention: No extinction/inattention to double simultaneous tactile stimulation Assessment & Plan: Ms. Pearce is a 83 y.o. year old female w PMHx of stroke s/p MT in May 2021, Afib on Eliquis (last took 08/06 AM), HTN, T2Dm, hypothyroidism, PE, CHF who presents with left facial droop, left arm and leg weakness, and right gaze deviation. She was a NO-GO for TNK due to taking Eliquis and Xa 0.5. She was a GO for MT and we left the ED at12:45 PM. Disposition: Thrombectomy suite then NNICU Case discussed with T[facility]ER attending: JEANA PETERS The TYLER team will sign off due to patient admission to the stroke/NNICU service. For acute neurologic change and repeat stroke assessment, please activate the acute stroke pager at [phone]. For a non-emergent questions please call the inpatient stroke phone at [phone]. Ivonne Perez MD 08/07/2023, 2:25 PM Subjective Past Medical History: Past Medical History: Diagnosis Date Adrenal nodule (HCC) Anxiety Aortic stenosis, moderate Atrial fibrillation (CMS/HCC) (HCC) Cardiomyopathy (HCC) Diabetes mellitus (HCC) Dyslipidemia GERD (gastroesophageal reflux disease) Heart murmur HFrEF (heart failure with reduced ejection fraction) (CMS/HCC) (HCC) Hyperlipidemia Hypertension Hypothyroidism Insomnia Mitral regurgitation NSTEMI (non-ST elevated myocardial infarction) (CMS/HCC) (HCC) Obesity AYAD on CPAP Patellar sleeve fracture of left knee PONV (postoperative nausea and vomiting) Pulmonary embolism (HCC) Sleep apnea Stroke (HCC) Zenker's diverticulum Past Surgical History: Past Surgical History: Procedure Laterality Date BREAST LUMPECTOMY CHOLECYSTECTOMY HAND SURGERY Left plate & screws HYSTERECTOMY INCISION AND DRAINAGE FEMUR Left 05/22/2019 KIDNEY STONE SURGERY Medications: No current facility-administered medications on file prior to encounter. Current Outpatient Medications on File Prior to Encounter Medication Sig Dispense Refill ALPRAZolam (XANAX) 0.5 mg tablet TAKE 1 TABLET (0.5 MG TOTAL) BY MOUTH 2 (TWO) TIMES A DAY NEEDED FOR ANXIETY. 60 tablet 0 blood glucose diagnostic (glucose blood) strip One strip daily to check glucose 100 each 1 blood-glucose meter misc Use daily or as directed for monitoring of diabetes. 1 each 0 CALCIUM CARBONATE ORAL Take 600 mg by mouth 2 (two) times a day carvediloL (COREG) 12.5 mg tablet Take 1 tablet (12.5 mg total) by mouth 2 (two) times a day with meals 180 tablet 3 cholecalciferol (VITAMIN D-3) 2000 unit tablet Take by mouth Eliquis 5 mg tablet TAKE 1 TABLET BY MOUTH TWICE A DAY 60 tablet 11 furosemide (LASIX) 40 mg tablet Take 1 tablet (40 mg total) by mouth as needed (shortness of breath, lower extremity or abdominal swelling, or weight gain of 3 lbs or more in 1 day) (Patient not taking: Reported on 07/27/2023) 90 tablet 2 glipiZIDE (GLUCOTROL) 10 mg tablet TAKE 1 TABLET BY MOUTH TWICE A DAY BEFORE BREAKFAST AND LUNCH (Patient taking differently: Take 1 tablet (10 mg total) by mouth daily) 180 tablet 1 lancets misc 1 each by other route daily 100 each 1 levothyroxine (SYNTHROID) 50 mcg tablet TAKE 1 TABLET BY MOUTH EVERY DAY 90 tablet 0 losartan (COZAAR) 100 mg tablet TAKE 1 TABLET BY MOUTH EVERY DAY 90 tablet 3 metFORMIN (GLUCOPHAGE) 500 mg tablet TAKE 1 TABLET BY MOUTH TWICE A DAY WITH FOOD 180 tablet 1 smzrxkqd-yzn-ymya-FA-lutein 8 mg iron-400 mcg-300 mcg tablet Take by mouth rosuvastatin (CRESTOR) 20 mg tablet TAKE 1 TABLET BY MOUTH EVERY DAY 90 tablet 3 spironolactone (ALDACTONE) 25 mg tablet TAKE 1 TABLET (25 MG TOTAL) BY MOUTH DAILY. 90 tablet 3 Allergies: Allergies Allergen Reactions [...] Never Sexual activity: Defer Alcohol Use: Unknown (05/19/2022) AUDIT-C Frequency of Alcohol Consumption: Not on file Average Number of Drinks: Patient does not drink Frequency of Binge Drinking: Not on file Review of Systems: A complete ROS was unable to be performed due to the patient's emergent medical condition specifically due to code stroke Cosigned by Jeana Peters MD at 08/16/2023 11:46 AM CDT Associated attestation - Jeana Peters MD - 08/16/2023 11:46 AM CDT I saw and examined the patient. I discussed the case with the resident. I reviewed labs, images andmedical records. I agree with the assessment and plan. documented in this encounter ED Notes * Fred Elena MD - 08/07/2023 12:29 PM CDT HPI Chief Complaint Patient presents with Stroke HPI 83-year-old female with past medical history of hypertension, atrial fibrillation on Eliquis, cardiomyopathy with recovered EF, aortic stenosis, previous stroke (Left M2 s/p thrombectomy with TICI3 flow, 2021) who presents to the ED with facial droop and left-sided weakness. Patient was getting herhair done when she suddenly had right-sided gaze deviation with right facial droop and left-sided flaccidity. Last known normal was 11:30 a.m. Patient states she did take her Eliquis this morning. Patient History: Patient Active Problem List Diagnosis Date Noted Acute ischemic right MCA stroke (HCC) 08/07/2023 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 (CMS/HCC) (HCC) 10/11/2021 Essential tremor History of nephrolithiasis 03/21/2021 Pica in adults 08/21/2020 Thyroid nodule 08/21/2020 Recurrent major depressive disorder, in full remission (CMS/HCC) (HCC) 08/21/2020 AYAD on CPAP 08/21/2020 Chronic combined systolic (congestive) and diastolic (congestive) heart failure ([facility]) 06/05/2019 Gastro-esophageal reflux disease without esophagitis 06/05/2019 WAI (generalized anxiety disorder) 06/05/2019 Hypertensive heart disease with heart failure ([facility]) ([facility]) 06/05/2019 Insomnia, unspecified 06/05/2019 Slow transit constipation 06/05/2019 Acquired hypothyroidism 05/31/2019 Type 2 diabetes mellitus without complications ([facility]) ([facility]) 05/31/2019 Essential hypertension 05/31/2019 Presence of left artificial knee joint 05/25/2019 Paroxysmal atrial fibrillation ([facility]) ([facility]) 08/18/2017 Past Medical History: Diagnosis Date Adrenal nodule ([facility]) Anxiety Aortic stenosis, moderate Atrial fibrillation ([facility]) ([facility]) Cardiomyopathy ([facility]) Diabetes mellitus ([facility]) Dyslipidemia GERD (gastroesophageal reflux disease) Heart murmur HFrEF (heart failure with reduced ejection fraction) ([facility]) ([facility]) Hyperlipidemia Hypertension Hypothyroidism Insomnia Mitral regurgitation NSTEMI (non-ST elevated myocardial infarction) ([facility]) ([facility]) Obesity AYAD on CPAP Patellar sleeve fracture of left knee PONV (postoperative nausea and vomiting) Pulmonary embolism ([facility]) Sleep apnea Stroke ([facility]) Zenker's diverticulum Past Surgical History: Procedure Laterality [...] home Review of Systems Review of Systems Constitutional: Negative. HENT: Negative. Eyes: Positive for visual disturbance. Respiratory: Negative. Cardiovascular: Negative. Gastrointestinal: Negative. Genitourinary: Negative. Musculoskeletal: Negative. Skin: Negative. Neurological: Positive for facial asymmetry, weakness and numbness. Physical Exam ED Triage Vitals Temp Pulse Resp BP SpO2 08/07/23 1216 08/07/23 1216 08/07/23 1216 08/07/23 1216 08/07/23 1216 36.4 ??C (97.5 ??F) 81 20 (!) 151/113 97 % Temp src Heart Rate Source Patient Position BP Location FiO2 (%) 08/07/23 1400 08/07/23 1400 08/07/23 1400 08/07/23 1400 -- Oral Monitor Lying Left arm Height Height Method Weight Weight Method 08/07/23 1230 08/07/23 1400 08/07/23 1205 08/07/23 1205 1.575 m (5' 2 ) Estimated 90.4 kg (199 lb 3.2 oz) Stated Physical Exam Constitutional: General: She is not in acute distress. Appearance: She is not toxic-appearing. HENT: Head: Normocephalic and atraumatic. Mouth/Throat: Mouth: Mucous membranes are moist. Eyes: Pupils: Pupils are equal, round, and reactive to light. Comments: Right gaze preference. Cardiovascular: Rate and Rhythm: Normal rate. Rhythm irregular. Comments: Systolic murmur consistent with known aortic stenosis Pulmonary: Effort: Pulmonary effort is normal. No respiratory distress. Breath sounds: Normal breath sounds. No wheezing. Abdominal: General: Abdomen is flat. There is no distension. Palpations: Abdomen is soft. Tenderness: There is no abdominal tenderness. Skin: General: Skin is warm and dry. Neurological: Mental Status: She is alert. Comments: See below NIHSS. Left hemiparesis and right gaze preference. Right facial droop. Left sided neglect. MDM NIH Score Interval: Baseline Level of Consciousness (1a.): 0 LOC Questions (1b.): 0 LOC Commands (1c.): 0 Best Gaze (2.): 2 Visual (3.): 2 Facial Palsy (4.): 3 Motor Arm, Left (5a.): 3 Motor Arm, Right (5b.): 1 Motor Leg, Left (6a.): 3 Motor Leg, Right (6b.): 0 Limb Ataxia (7.): 0 Sensory (8.): 1 Best Language (9.): 0 Dysarthria (10.): 1 Extinction and Inattention (11.) (Formerly Neglect): 1 Total: 17 Medical Decision Making Amount and/or Complexity of Data Reviewed Labs: Decision-making details documented in ED Course. Radiology: Decision-making details documented in ED Course. Risk Decision regarding hospitalization. 83-year-old female with past medical history of hypertension, atrial fibrillation on Eliquis, cardiomyopathy with recovered EF, aortic stenosis, previous stroke (Left M2 s/p thrombectomy with TICI3 flow, 2021) who presents to the ED with facial droop and left-sided weakness. Consistent with right MCA syndrome. Differential diagnosis includes but not limited to highest concern for acute CVA, hemorrhagic conversion. Not a candidate for thrombolytics as patient took her Eliquis this morning. We will pursue thrombectomy as potential treatment option. Will pursue CTA CTP and discuss further interventions with Neurology and Interventional Radiology. Attending Summary of Care This is a 83-year-old female with a history of previous ischemic stroke status post mechanical thrombectomy in 2021 who was on Eliquis for atrial fibrillation who presents from scene for onset of 11 30 this a.m.. A stroke team activated upon arrival. Patient had large NIH stroke scale with a right hemispheric stroke syndrome. CTA demonstrated M1 occlusion, seen by Neurology and IR consulted. Patient to go for thrombectomy Plan: 1. IV access 2. Labs ordered and reviewed 3. Noncontrast CT ordered reviewed with no acute hemorrhage 4. Advanced imaging CTA ordered demonstrating M1 occlusion 5. Patient to go for mechanical thrombectomy and transferred to IR suite 6.NICU admission Attending Attestation for Resident note I, Fred Elena MD, have seen and examined this patient on 08/07/2023. I agree with the findings and plan of care as documented in the resident's note unless noted otherwise here. ED Course as of 08/07/23 1602 Time: 08/06 1242 Value: Anti Factor Xa: 0.50 Comment: (Reviewed) By: Marizol Guardado MD Time: 08/06 1245 Comment: Patient left ED for thrombectomy. By: Marizol Guardado MD Time: 08/06 1247 Comment: Teaching note: Briefly, this is an 83-year-old female with a history of prior CVA, AFib onEliquis who presents with acute onset of right MCA syndrome. Was at her hairdresser's appointment when she suddenly developed symptoms. States she last took her Eliquis this morning. Non-con head CT without hemorrhage. CTA CTP demonstrated distal right M1 occlusion with favorable mismatch. Not a candidate for thrombolytics due to anticoagulation status. Was a candidate for thrombectomy and taken emergently to IR suite. Decisions regarding intervention made in consultation with Neurology stroke team. By: Khanh Esquivel MD Time: 08/06 1313 Value: CTA/CTP Rapid Stroke (C) Comment: IMPRESSION: 1. No evidence of acute intracranial hemorrhage. 2. Distal right M1 occlusion with poor collateral flow. Associated large right cerebral hemispheric area of ischemic penumbra, with small core infarct. 3. Chronic/incidental findings, as described above. By: Marizol Guardado MD Acute ischemic right MCA stroke (HCC) Marizol Guardado MD Resident 08/07/23 124 Fred Elena MD 08/07/23 124 Fred Elena MD 08/07/23 1602 * Sherly oFx RN - 08/07/2023 12:07 PM CDT Pt BIBEMS for left sided flaccidity, right sided gaze, and right facial droop. LNK 11:30. No meds given en route. BP 180/100 for EMS, HR 70's in afib. Pt PMH CVA 2 years ago * Yoly Alcantara RN - 08/07/2023 12:07 PM CDT Bed: [facility] Expected date: 08/07/23 Expected time: 11:55 AM Means of arrival: Comments: STROKE Yoly Alcantara RN 08/07/23 1207 documented in this encounter Miscellaneous Notes * Plan of Care - Gris Buck RN - 08/10/2023 8:00 AM CDT Goals: Clinical Goals for the Shift: Monitor VS/neuro check/blood sugar, maintain safety, use call light, TTE ordered. [facility] Patient Centered Goal for Treatment: Home with family Summary: . Problem: Discharge Planning Goal: Understanding discharge needs will improve Outcome: Progressing Problem: Skin Integrity Impairment Risk Goal: Mobility will improve Outcome: Progressing Goal: Understanding of ways to prevent future skin breakdown will improve Outcome: Progressing Goal: Nutritional status will improve Outcome: Progressing Goal: Risk for impaired skin integrity will decrease Outcome: Progressing Problem: Lack of Knowledge Goal: Ability to describe self care measures that may prevent or decrease complications related to Type 1 Diabetes will improve Outcome: Progressing Goal: Ability to describe self care measures that may prevent or decrease complications related to Type 2 Diabetes will improve Outcome: Progressing Problem: Health Nutrition Goal: Nutritional intake and knowledge related to Diabetes will improve Outcome: Progressing Problem: Neurosensory Goal: Achieves stable or improved neurological status Outcome: Progressing Goal: Achieves maximal functionality and self care Outcome: Progressing Problem: Respiratory Goal: Achieves optimal ventilation and oxygenation Outcome: Progressing Goal: Ability to maintain a clear airway will improve Outcome: Progressing Problem: Cardiovascular Goal: Maintains optimal cardiac output and hemodynamic stability Outcome: Progressing Goal: Absence of cardiac dysrhythmias or at baseline Outcome: Progressing Goal: Cardiovascular status will improve Outcome: Progressing Problem: Skin/Tissue Integrity Goal: Skin integrity remains intact Outcome: Progressing Goal: Incisions, wounds, or drain sites healing without S/S of infection Outcome: Progressing Goal: Oral mucous membranes remain intact Description: Outcome: Progressing Problem: Musculoskeletal Goal: Return mobility to safest level of function Outcome: Progressing Goal: Return ADL status to a safe level of function Outcome: Progressing Goal: Ability to perform activities at highest level will improve Outcome: Progressing Goal: Mobility, ROM and muscle strength will improve Outcome: Progressing Problem: Gastrointestinal Goal: Minimal or absence of nausea and vomiting Outcome: Progressing Goal: Maintains or returns to baseline bowel function Outcome: Progressing Goal: Maintains adequate nutritional intake Outcome: Progressing Problem: Genitourinary Goal: Absence of urinary retention Outcome: Progressing Problem: Infection Goal: Absence of infection during hospitalization Outcome: Progressing Goal: Absence of fever/infection during anticipated neutropenic period Outcome: Progressing Problem: Metabolic/Fluid and Electrolytes Goal: Electrolytes maintained within normal limits Outcome: Progressing Goal: Hemodynamic stability and optimal renal function maintained Outcome: Progressing Goal: Glucose maintained within prescribed range Outcome: Progressing Problem: Hematologic Goal: Maintains hematologic stability Outcome: Progressing * Plan of Care - Chad Mendez RN - 08/09/2023 10:01 AM CDT Problem: Discharge Planning Goal: Understanding discharge needs will improve Outcome: Progressing Problem: Skin Integrity Impairment Risk Goal: Mobility will improve Outcome: Progressing Goal: Understanding of ways to prevent future skin breakdown will improve Outcome: Progressing Goal: Nutritional status will improve Outcome: Progressing Goal: Risk for impaired skin integrity will decrease Outcome: Progressing Problem: Lack of Knowledge Goal: Ability to describe self care measures that may prevent or decrease complications related to Type 1 Diabetes will improve Outcome: Progressing Goal: Ability to describe self care measures that may prevent or decrease complications related to Type 2 Diabetes will improve Outcome: Progressing Problem: Health Nutrition Goal: Nutritional intake and knowledge related to Diabetes will improve Outcome: Progressing Problem: Neurosensory Goal: Achieves stable or improved neurological status Outcome: Progressing Goal: Achieves maximal functionality and self care Outcome: Progressing Problem: Respiratory Goal: Achieves optimal ventilation and oxygenation Outcome: Progressing Goal: Ability to maintain a clear airway will improve Outcome: Progressing Problem: Cardiovascular Goal: Maintains optimal cardiac output and hemodynamic stability Outcome: Progressing Goal: Absence of cardiac dysrhythmias or at baseline Outcome: Progressing Goal: Cardiovascular status will improve Outcome: Progressing Problem: Skin/Tissue Integrity Goal: Skin integrity remains intact Outcome: Progressing Goal: Incisions, wounds, or drain sites healing without S/S of infection Outcome: Progressing Goal: Oral mucous membranes remain intact Description: Outcome: Progressing Problem: Musculoskeletal Goal: Return mobility to safest level of function Outcome: Progressing Goal: Return ADL status to a safe level of function Outcome: Progressing Goal: Ability to perform activities at highest level will improve Outcome: Progressing Goal: Mobility, ROM and muscle strength will improve Outcome: Progressing Problem: Gastrointestinal Goal: Minimal or absence of nausea and vomiting Outcome: Progressing Goal: Maintains or returns to baseline bowel function Outcome: Progressing Goal: Maintains adequate nutritional intake Outcome: Progressing Problem: Genitourinary Goal: Absence of urinary retention Outcome: Progressing Problem: Infection Goal: Absence of infection during hospitalization Outcome: Progressing Goal: Absence of fever/infection during anticipated neutropenic period Outcome: Progressing Problem: Metabolic/Fluid and Electrolytes Goal: Electrolytes maintained within normal limits Outcome: Progressing Goal: Hemodynamic stability and optimal renal function maintained Outcome: Progressing Goal: Glucose maintained within prescribed range Outcome: Progressing Problem: Hematologic Goal: Maintains hematologic stability Outcome: Progressing Goals: Clinical Goals for the Shift: Moniter VS/ Neuro checks, maintain patient safety and comfort Summary: . * Hospital Course - [place], Ivonne Garzon MD - 08/08/2023 6:25 PM CDT Prema Pearce is a 83 y.o. female who presented with left sided weakness, right forced gaze found to have an occlusion of the R M1 s/p mechanical thrombectomy 08/07/23 with TICI 2c reperfusion. #Stroke Locations: Right MCA Stroke The patient was found to have an ischemic stroke in the Right MCA territory which was thought most likely to be secondary to cardioembolism. The patient was not a candidate for thrombolytics and was a candidate for thrombectomy . The patient's risk factors included Age > 55, hypertension, dyslipidemia, diabetes mellitus, prior stroke, and obstructive sleep apnea. Management: The patient was started on aspirin 81mg following acute intervention while awaiting safe restart for Eliquis. She was instructed to restart Eliquis 5 BID on 08/10 The patient was also started on a high-intensity statin, with Atorvastatin 40mg Daily, per current [place] [employer]/[place] St[employer] Association guidelines that recommend intensive statin therapy for all patients with ischemic stroke or TIA and also suggest a target LDL level of less than 70mg/dL for high-risk patients, or a reduction of at least 50% if the baseline LDL level is between 70 and 189 mg/dL if tolerated. Pertinent Hospitalization Details: Pt was admitted to NNICU following mechanical thrombectomy 08/06 for overnight monitoring. Repeat CTscan stable from prior and patient with improving strength on the left. Pt was transferred to Stroke Neurology floor on 08/07 for subsequent care. Pertinent Work-Up: - a1c 6.1, LDL 33 - EKG on admission showed atrial fibrillation (known) - Non-contrast head CT: no acute infarcts - 4 vessel angiogram: 1. Initial angiography demonstrated a right middle cerebral artery M1 segment occlusion. 2. Successful 1-pass aspiration mechanical thrombectomy of the right middle cerebral artery. 3. Final angiography demonstrated reperfusion through the right middle cerebral artery territory with some slow flowing distal cortical vessels consistent with a eTICI 2C reperfusion. - TTE 07/26 showed Rhythm is in AFib. LV cavity size is normal with normal systolic function. LVEF 66%. Normal LV wall thickness/mass. LA is markedly dilated. Normal RV cavity size with low normal function. Moderately calcified aortic valve with moderate LGLF . Markedly calcified MAC with no HD sig nificant MS. Mild MR. Estimated PA systolic pressure 39+RA(5) mmHg. Reduced global LV myocardial longitudinal function and strain pattern. Normal Inferior vena cava. Normal aorta. No significant changes noted. A SMART Consult was performed and PT/OT recommended discharge to home. The patient will follow up in the Stroke CAM clinic. Address: [facility] ([facility]): [address] [place] [address] Other problems addressed this admission: #Hypertension Blood pressure on admission was 151/113. Home blood pressure medications were initially held to allow for permissive hypertension in the setting of acute stroke. Blood pressure medications were subsequently resumed with improvements in blood pressure prior to discharge. The patient was discharged on carvedilol 12.5mg BID and losartan 100. The patient should follow-up with their PCP or Jewellery Designer for further evaluation and management. #Hyperlipidemia LDL on admission was 33. The patient was discharged on Atorvastatin 40mg daily. Pt is at Goal LDL for secondary stroke prevention (<70). #Atrial Fibrillation The patient was monitored on telemetry which showed atrial fibrillation. Rate control was achieved during the admission with Coreg and the patient was discharged on Coreg as above for ongoing rate control. [id number] score is 7. The patient was discharged on Eliquis (to start on 08/10) for secondarystroke prevention. The patient should follow-up with their PCP or Jewellery Designer for further evaluation and management. #Type II Diabetes Mellitus A1c on admission was 6.1. Goal a1c for secondary stroke prevention is <7%. Blood glucose was managed during the hospitalization with sliding scale insulin. The patient was discharged on her home meds. The patient should follow-up with their PCP for further evaluation and management. * Plan of Care - Cyndie Cornejo RN - 08/08/2023 10:16 AM CDT Problem: Discharge Planning Goal: Understanding discharge needs will improve Outcome: Progressing Problem: Skin Integrity Impairment Risk Goal: Mobility will improve Outcome: Progressing Goal: Understanding of ways to prevent future skin breakdown will improve Outcome: Progressing Goal: Nutritional status will improve Outcome: Progressing Goal: Risk for impaired skin integrity will decrease Outcome: Progressing Problem: Lack of Knowledge Goal: Ability to describe self care measures that may prevent or decrease complications related to Type 1 Diabetes will improve Outcome: Progressing Goal: Ability to describe self care measures that may prevent or decrease complications related to Type 2 Diabetes will improve Outcome: Progressing Problem: Health Nutrition Goal: Nutritional intake and knowledge related to Diabetes will improve Outcome: Progressing Problem: Neurosensory Goal: Achieves stable or improved neurological status Outcome: Progressing Goal: Achieves maximal functionality and self care Outcome: Progressing Problem: Respiratory Goal: Achieves optimal ventilation and oxygenation Outcome: Progressing Goal: Ability to maintain a clear airway will improve Outcome: Progressing Problem: Cardiovascular Goal: Maintains optimal cardiac output and hemodynamic stability Outcome: Progressing Goal: Absence of cardiac dysrhythmias or at baseline Outcome: Progressing Goal: Cardiovascular status will improve Outcome: Progressing Problem: Skin/Tissue Integrity Goal: Skin integrity remains intact Outcome: Progressing Goal: Incisions, wounds, or drain sites healing without S/S of infection Outcome: Progressing Goal: Oral mucous membranes remain intact Description: Outcome: Progressing Problem: Musculoskeletal Goal: Return mobility to safest level of function Outcome: Progressing Goal: Return ADL status to a safe level of function Outcome: Progressing Goal: Ability to perform activities at highest level will improve Outcome: Progressing Goal: Mobility, ROM and muscle strength will improve Outcome: Progressing Problem: Gastrointestinal Goal: Minimal or absence of nausea and vomiting Outcome: Progressing Goal: Maintains or returns to baseline bowel function Outcome: Progressing Goal: Maintains adequate nutritional intake Outcome: Progressing Problem: Genitourinary Goal: Absence of urinary retention Outcome: Progressing Problem: Infection Goal: Absence of infection during hospitalization Outcome: Progressing Goal: Absence of fever/infection during anticipated neutropenic period Outcome: Progressing Problem: Metabolic/Fluid and Electrolytes Goal: Electrolytes maintained within normal limits Outcome: Progressing Goal: Hemodynamic stability and optimal renal function maintained Outcome: Progressing Goal: Glucose maintained within prescribed range Outcome: Progressing Problem: Hematologic Goal: Maintains hematologic stability Outcome: Progressing Goals: Clinical Goals for the Shift: q1 vitals, q1 neuro checks, promote comfort and safety, pain management. Summary: * Plan of Care - Denisa Serna RN - 08/07/2023 9:26 PM CDT Problem: Discharge Planning Goal: Understanding discharge needs will improve Outcome: Ongoing Problem: Skin Integrity Impairment Risk Goal: Mobility will improve Outcome: Ongoing Goal: Understanding of ways to prevent future skin breakdown will improve Outcome: Ongoing Goal: Nutritional status will improve Outcome: Ongoing Goal: Risk for impaired skin integrity will decrease Outcome: Ongoing Goals: Clinical Goals for the Shift: q1 vitals, q1 neuro checks, promote comfort and safety, pain management, HCT in AM * Initial Assessments - Kunal Pinto RN - 08/07/2023 3:44 PM CDT CM Initial Assessment Interview Note Information Obtained From: Adult child Name: Tiago Culp [phone] Admission Source: Home Impression: Patient admitted to [facility] NN[facility] for stroke work up protocol. Plan Includes: internal communications manager will monitor for post acute discharge needs such as therapy, nursing, medical equipment or agency referrals as indicated by the care team. Primary Source of Transportation: Does the patient need discharge transport arranged?: No If private car is appropriate at discharge, family will provide transport at discharge from hospital. Health Insurance Coverage: [facility] Medicare Prescription Coverage: Yes Pharmacy: [id number] [place], [place] - [phone] [place] [id number] Primary Care Provider: Cuba Larsen MD Prior to Admission: Functional Status: Independent with ADLs Primary Caregiver: Self Support System: Family members, Children (Tiago Culp [phone]) Home Care Services: No Outpatient Services: No Durable Medical Equipment: Cane (single prong), CPAP/Bi-PAP, Diabetic supplies Living Arrangements: Alone Type of Residence: Private residence Steps in home?: Yes, Outside of home Number of steps outside: 5 steps Potential discharge needs include: Home Health: Other (Comment) (TBD) Behavioral Health Services: Behavioral Health Services: No Anticipated Level of Care: Anticipated discharge level of care: Private residence Pt/Family agrees with Anticipated Level of Care: Yes Patient expects to be Discharged to: Private residence Additional Information: Patient's address verified correct in Epic. If private car is appropriate at discharge, family will provide transport at discharge from hospital. Patient's Identified Problem/Goal Problem: Ensure acute medical [...] Collaboration with Patient, Provider, Direct Care Nurse, Physical Therapist Clinic Director, and other members of theHealth Care Team to assure needed interventions completed. 2. Return patient to optimal level of self-care post discharge. 3. Laser Cutter will follow for Discharge Planning - interventions as needed 4. Anticipated level of care at discharge 5. Planned Discharge Disposition Kunal Pinto RN * Plan of Care - Giovanna Aguilera RN - 08/07/2023 3:32 PM CDT Goals: Clinical Goals for the Shift: post thrombectomy checks, Q15 VS, comfort measures, pain management Summary: Problem: Discharge Planning Goal: Understanding discharge needs will improve Outcome: Progressing Problem: Skin Integrity Impairment Risk Goal: Mobility will improve Outcome: Progressing * Post-Procedure Note - Stuart Simental MD - 08/07/2023 1:32 PM CDT Interventional Neuroradiology Brief Post Procedure Note Attending: Stuart Simental MD [employer] Outfit Supervisor(s): Mor Riley MD, Cyndie Griffin MD, Dick Red MD Sedation/Anesthesia: General anesthesia Medications: Local/access site: SQ 1% lidocaine Sedation/analgesia: None Vasodilators/antihypertensives: None Antiplatelet/anticoagulant/reversal agents: None Antiemetics: None Other: None Please see medication administration record for details and additional medications. Contrast: [id number] Pre-procedure Diagnosis: stroke Post-procedure Diagnosis: Same Access Site: Right common femoral artery; hemostasis achieved via AngioSeal Procedure Performed: - Percutaneous arterial transluminal mechanical thrombectomy and/or infusion for thrombolysis, intracranial: aspiration thrombectomy of right MCA M1 segment - Cerebral angiography: right common carotid artery, right internal carotid artery, and right common femoral artery injections - Ultrasound-guided vascular access - Hemostatic device placement Procedure Findings: - Initial angiography demonstrated a right MCA M1 occlusion. - Successful single pass aspiration thrombectomy with mTICI 2C reperfusion. - Final angiography demonstrated no significant ICA stenosis. Complications: None Estimated Blood Loss: 100 mL Specimens: None Condition: Unchanged Plan: Neuro ICU for post acute stroke mechanical thrombectomy reperfusion care. Full report to follow. * ED Procedure Note - Fred Elena MD - 08/07/2023 12:34 PM CDT Associated Order(s): ECG 12 lead Procedure ECG 12 lead Date/Time: 08/07/2023 12:34 PM Performed by: Fred Elena MD Authorized by: Jeana Peters MD Rate: ECG rate: 85 Rhythm: Rhythm: atrial fibrillation Ectopy: Ectopy: none QRS: QRS axis: Normal QRS intervals: Normal Conduction: Conduction: normal ST segments: ST segments: Normal T waves: T waves: normal Previous ECG: Previous ECG: Unavailable Interpretation: Interpretation: non-specific Recommended Follow-up: Recommended follow up: further workup in the ED Comments: Moderate risk Fred Elena MD 08/07/23 1235 * ED Procedure Note - Fred Elena MD - 08/07/2023 12:32 PM CDT Associated Order(s): Critical Care Procedure Critical Care Performed by: Fred Elena MD Authorized by: Fred Elena MD Critical care provider statement: As reflected in the history, physical exam, orders, notes, and/or MDM, I was personally present while the patient was critically ill and provided critical care services for 35 minutes, excluding timeinvolved in separately billable procedures. Critical care was necessary to treat or prevent imminent or life- threatening deterioration of the following condition(s): acute cerebrovascular accident (CVA) and severe neurologic condition Critical care was time spent by me providing the following: continuous telemetry, continuous pulse oximetry, continuous capnography, interpretation of bedside monitors, imaging, and arterial/venous lab draws and serial bedside patient exams frequent neurologic exams, decision regarding acute lytic therapy and initiation of stroke management I provided emergent necessary critical care medicine [...] spent time documenting in the medical record. I admitted this patient to a continuous cardiac monitored bed. I admitted this patient to an Intensive Care unit (ICU)and discussed management with the admitting team. Fred Elena MD 08/07/23 1233 documented in this encounter Plan of Treatment Scheduled Orders Name Type Priority Associated Diagnoses Orde r Schedule ECG 12 lead ECG STAT As needed unt il discontinued starting 08/07/2023 documented as of this encounter Procedures Procedure Name Priority Date/Time Associated Diagnosis Comments POCT GLUCOSE DEVICE Routine 08/10/2023 1 0:59 AM CDT POCT GLUCOSE DEVICE Routine 08/10/2023 7 :18 AM CDT EGFR Routine 08/09/2023 10:16 PM CDT CBC WITHOUT DIFFERENTIAL Routine 08/09/2023 10:16 PM CDT BASIC METABOLIC PANEL Routine 08/09/2023 10:16 PM CDT POCT GLUCOSE DEVICE Routine 08/09/2023 8 :10 PM CDT POCT GLUCOSE DEVICE Routine 08/09/2023 4 :44 PM CDT POCT GLUCOSE DEVICE Routine 08/09/2023 1 1:40 AM CDT POCT GLUCOSE DEVICE Routine 08/09/2023 7 :19 AM CDT EGFR Timed 08/08/2023 8:52 PM CDT CBC WITHOUT DIFFERENTIAL Routine 08/08/2023 8:52 PM CDT PHOSPHORUS Timed 08/08/2023 8:52 PM CDT MAGNESIUM Timed 08/08/2023 8:52 PM CDT COMPREHENSIVE METABOLIC PANEL Timed 08/08/2023 8:52 PM CDT URINALYSIS AND REFLEX TO MICROSCOPIC STAT 08/08/2023 7:59 PM CDT URINALYSIS, MICROSCOPIC ONLY STAT 08/08/2023 7:59 PM CDT POCT GLUCOSE DEVICE Routine 08/08/2023 7 :40 PM CDT POCT GLUCOSE DEVICE Routine 08/08/2023 5 :11 PM CDT POCT GLUCOSE DEVICE Routine 08/08/2023 1 2:32 PM CDT POCT GLUCOSE DEVICE Routine 08/08/2023 8 :[address] HEAD WO CONTRAST Timed 08/08/2023 3 :26 AM CDT EGFR Timed 08/07/2023 8:32 PM CDT CBC WITHOUT DIFFERENTIAL Routine 08/07/2023 8:32 PM CDT PHOSPHORUS Timed 08/07/2023 8:32 PM CDT MAGNESIUM Timed 08/07/2023 8:32 PM CDT COMPREHENSIVE METABOLIC PANEL Timed 08/07/2023 8:32 PM CDT POCT GLUCOSE DEVICE Routine 08/07/2023 8 :01 PM CDT POCT GLUCOSE DEVICE Routine 08/07/2023 5 :13 PM CDT XR CHEST 1 VIEW IP Routine 08/07/2023 3:09 PM CDT TROPONIN I HIGH-SENSITIVITY 2-HOUR Timed 08/07/2023 2:35 PM CDT EGFR STAT 08/07/2023 2:35 PM CDT APTT STAT 08/07/2023 2:35 PM CDT PROTIME-INR STAT 08/07/2023 2:35 PM CDT CBC WITHOUT DIFFERENTIAL STAT 08/07/2023 2:35 PM CDT TYPE AND SCREEN STAT 08/07/2023 2:35 PM CDT PHOSPHORUS STAT 08/07/2023 2:35 PM CDT MAGNESIUM STAT 08/07/2023 2:35 PM CDT HEMOGLOBIN A1C STAT 08/07/2023 2:35 PM CDT LIPID PANEL STAT 08/07/2023 2:35 PM CDT COMPREHENSIVE METABOLIC PANEL STAT 08/07/2023 2:35 PM CDT ECG 12-LEAD STAT 08/07/2023 2:22 PM CDT POCT GLUCOSE DEVICE Routine 08/07/2023 2 :02 PM CDT PERCUTANEOUS ARTERIAL THROMBECTOMY, INTRACRANIAL Critical/Life-T hreatening 08/07/2023 1:42 PM CDT ECG 12-LEAD STAT 08/07/2023 12:34 PM CDT ND CRITICAL CARE ILL/INJURED PATIENT INIT 30-74 MIN Routine 08/07/2023 12:32 PM CDT CTA/CTP RAPID STROKE Critical/Life-T hreatening 08/07/2023 12:29 PM CDT TROPONIN I HIGH-SENSITIVITY SERIES (BASELINE, 2HR, 4HR, 6HR) STAT 08/07/2023 12:15 PM CDT EGFR STAT 08/07/2023 12:15 PM CDT DIFFERENTIAL AUTO STAT 08/07/2023 12: 15 PM CDT HEPARIN ANTI FACTOR XA ACTIVITY STAT 08/07/2023 12:15 PM CDT CBC WITH AUTO DIFFERENTIAL STAT 08/07/2023 12:15 PM CDT APTT STAT 08/07/2023 12:15 PM CDT COMPREHENSIVE METABOLIC PANEL STAT 08/07/2023 12:15 PM CDT POCT PROTHROMBIN TIME, WHOLE BLOOD Routine 08/07/2023 12:12 PM CDT POCT GLUCOSE DEVICE Routine 08/07/2023 1 2:11 PM CDT documented in this encounter Results * POCT glucose (08/10/2023 10:59 AM CDT) Glucose, POC 171 70 - 199 mg/dL Blood 08/10/2023 10:5 9 AM CDT 08/10/2023 10:59 AM CDT Clarence Guido MD LAB POCT ORDERABLES - DEVICE Fin al Result Performing Organization Address [facility] de Phone Number [facility] [address] [place] [address] * POCT glucose (08/10/2023 7:18 AM CDT) Pathologist [facility] Glucose, POC 166 70 - 199 mg/dL Blood 08/10/2023 7:18 AM CDT 08/10/2023 7:18 AM CDT Clarence Guido MD LAB POCT ORDERABLES - DEVICE Fin al Result Performing Organization Address [facility] Phone Number [facility] Department [place] [address] [place] [address] * eGFR (08/09/2023 10:16 PM CDT) eGFR 70 >=60 mL/min/1. 73 m2 Comment: Interpretive Data [...] interpretive data was last reviewed 2021. Blood 08/09/2023 10:1 6 PM CDT 08/09/2023 11:23 PM CDT us Parris Celestin NP LAB BLOOD ORDERABLES Sri davalos Result [facility] [place] [address] * (ABNORMAL) Basic metabolic panel (08/09/2023 10:16 PM CDT) [facility] Sodium 137 135 - 145 mmol/L Potassium, pl 4.4 3.3 - 4.9 mmol/L [facility] Chloride 103 97 - 110 mmol/L [facility] CO2 24 22 - 32 mmol/L [facility] Anion gap 10 2 - 15 mmol/L [facility] BUN 32(H) 6 - 25 mg/dL [facility] Creatinine 0.83 0.60 - 1.10 mg/dL [facility] Glucose 137 70 - 199 mg/dL [facility] Comment: Interpretive Data Fasting glucose [...] interpretive data was last revised 2022. Calcium 9.9 8.5 - 10.3 mg/dL [facility] Blood 08/09/2023 10:1 6 PM CDT 08/09/2023 11:23 PM CDT Parris Celestin RECORD MAKER LAB BLOOD ORDERABLES Sri l Result Performing Organization Address City/[facility]/ZIP Co de Phone Number [facility] [place] [address] * (ABNORMAL) CBC without differential (08/09/2023 10:16 PM CDT) Pathologist [facility] WBC 6.8 3.8 - 9.9 K/cumm Hgb 11.5(L) 11.9 - 15.5 g/dL [facility] Hct 34.8(L) 35.6 - 45.5 % [facility] Plt 220 150 - 400 K/cumm [facility] MPV 10.4 9.1 - 12.3 fL [facility] RBC 3.55(L) 3.90 - 5.20 M/cumm [facility] MCV 98.0(H) 81.3 - 96.4 fL [facility] MCH 32.4 27.1 - 33.3 pg [facility] MCHC 33.0 32.3 - 35.7 g/dL [facility] RDW CV 13.5 11.1 - 14.9 % [facility] RDW SD 48.7(H) 35.7 - 48.1 fL [facility] NRBC abs 0.00 0.00 - 0.01 K/cumm [facility] Blood 08/09/2023 10:1 6 PM CDT 08/09/2023 11:24 PM CDT us Parris Celestin RECORD MAKER LAB BLOOD ORDERABLES Sri l Result Performing Organization Address City/[facility]/ZIP Co de Phone Number [facility] Department [place] [address] * POCT glucose (08/09/2023 8:10 PM CDT) Glucose, POC 166 70 - 199 mg/dL Blood 08/09/2023 8:10 PM CDT 08/09/2023 8:10 PM CDT Clarence Guido MD LAB POCT ORDERABLES - DEVICE Fin al Result Performing Organization Address [facility] [place] [address] * POCT glucose (08/09/2023 4:44 PM CDT) Glucose, POC 144 70 - 199 mg/dL Blood 08/09/2023 4:44 PM CDT 08/09/2023 4:44 PM CDT Clarence Guido MD LAB POCT ORDERABLES - DEVICE Fin al Result Performing Organization Address [facility] [place] [address] * POCT glucose (08/09/2023 11:40 AM CDT) Glucose, POC 172 70 - 199 mg/dL Blood 08/09/2023 11:4 0 AM CDT 08/09/2023 11:40 AM CDT Fred Boone MD LAB POCT ORDERABLES - DEVICE Fin al Result Performing Organization Address [facility] [place] [address] * POCT glucose (08/09/2023 7:19 AM CDT) Glucose, POC 163 70 - 199 mg/dL Blood 08/09/2023 7:19 AM CDT 08/09/2023 7:19 AM CDT us Fred Boone MD LAB POCT ORDERABLES - DEVICE Fin al Result Performing Organization Address [facility] de Phone Number [facility] Department [place] [address] * eGFR (08/08/2023 8:52 PM CDT) eGFR 90 >=60 mL/min/1. 73 m2 Comment: Interpretive Data [...] interpretive data was last reviewed 2021. Blood 08/08/2023 8:52 PM CDT 08/08/2023 9:40 PM CDT us Parris Celestin NP LAB BLOOD ORDERABLES Sri l Result Performing Organization Address [facility] Co de Phone Number [facility] [place] [address] * Phosphorus (08/08/2023 8:52 PM CDT) [facility] Phosphorus, pl 2.5 2.3 - 4.5 mg/dL Blood 08/08/2023 8:52 PM CDT 08/08/2023 9:40 PM CDT Parris Celestin RECORD MAKER LAB BLOOD ORDERABLES Sri l Result Performing Organization Address City/[facility]/[place] [address] * Magnesium (08/08/2023 8:52 PM CDT) [facility] Magnesium 2.0 1.4 - 2.5 mg/dL Blood 08/08/2023 8:52 PM CDT 08/08/2023 9:40 PM CDT Parris Celestin RECORD MAKER LAB BLOOD ORDERABLES Sri l Result Performing Organization Address [facility] de Phone Number [facility] [place] [address] * (ABNORMAL) Comprehensive metabolic panel (08/08/2023 8:52 PM CDT) [facility] Sodium 138 135 - 145 mmol/L Potassium, pl 4.2 3.3 - 4.9 mmol/L [facility] Chloride 106 97 - 110 mmol/L [facility] CO2 24 22 - 32 mmol/L [facility] Anion gap 8 2 - 15 mmol/L [facility] BUN 17 6 - 25 mg/dL [facility] Creatinine 0.59(L) 0.60 - 1.10 mg/dL [facility] Glucose 119 70 - 199 mg/dL [facility] Comment: Interpretive Data Fasting glucose [...] interpretive data was last revised 2022. Calcium 9.6 8.5 - 10.3 mg/dL [facility] Bilirubin, total 0.6 0.1 - 1.2 mg/dL [facility] Protein, pl 7.0 6.5 - 8.5 g/dL [facility] Albumin 4.1 3.5 - 5.0 g/dL [facility] Alk phos 72 40 - 130 Units/L [facility] ALT 21 7 - 45 Units/L [facility] AST 23 10 - 45 Units/L [facility] Blood 08/08/2023 8:52 PM CDT 08/08/2023 9:40 PM CDT Parris Celestin RECORD MAKER LAB BLOOD ORDERABLES Sri davalos Result [facility] Department [place] [address] * (ABNORMAL) CBC without differential (08/08/2023 8:52 PM CDT) [facility] WBC 7.0 3.8 - 9.9 K/cumm Hgb 12.1 11.9 - 15.5 g/dL [facility] Hct 36.4 35.6 - 45.5 % [facility] Plt 231 150 - 400 K/cumm [facility] MPV 10.0 9.1 - 12.3 fL [facility] RBC 3.74(L) 3.90 - 5.20 M/cumm [facility] MCV 97.3(H) 81.3 - 96.4 fL [facility] MCH 32.4 27.1 - 33.3 pg [facility] MCHC 33.2 32.3 - 35.7 g/dL [facility] RDW CV 13.4 11.1 - 14.9 % [facility] RDW SD 48.3(H) 35.7 - 48.1 fL [facility] NRBC abs 0.00 0.00 - 0.01 K/cumm [facility] Blood 08/08/2023 8:52 PM CDT 08/08/2023 9:40 PM CDT us Parris Cleestin RECORD MAKER LAB BLOOD ORDERABLES Sri l Result Performing Organization Address [facility] de Phone Number [facility] [place] [address] * (ABNORMAL) Urinalysis, microscopic only (08/08/2023 7:59 PM CDT) WBC, ur >50(A) 0 - 5 /HPF RBC, ur 6-10(A) 0 - 2 /HPF [facility] Epithelial cells, squamous, ur 1-5 0 - 5 /HPF [facility] Bacteria, ur 4+(A) [facility] Mucous, ur Present(A) [facility] Urine 08/08/2023 7:59 PM CDT 08/08/2023 8:35 PM CDT us Chandler Verdugo MD LAB URINE ORDERABLES Final Result Performing Organization Address [facility] de Phone Number [facility] [place] [address] * (ABNORMAL) Urinalysis reflex to microscopic (08/08/2023 7:59 PM CDT) Color, ur Straw Yellow Clarity, ur Cloudy(A) Clear [facility] Specific gravity, ur 1.014 1.003 - 1.030 [facility] pH, urine 6.0 [facility] Comment: Interpretive Data ? Urine pH is affected by diet, medications, systemic acid-base disturbances, and renal tubular function. ??pH may affect urinary stone formation. ??For example, urine pH below 6.0 may help reduce the tendency for calcium phosphate stones and pH greater than 6.0 may reduce the tendency for uric acid stone formation. Source: [facility] Current Interpretive Data was last revised on 2017 Protein, ur ql Trace Negative [facility] Glucose, ur ql Negative Negative [facility] Ketones, ur Negative Negative [facility] Bilirubin, ur Negative Negative [facility] Blood, ur Trace(A) Negative [facility] Urobilinogen, ur <2.0 <2.0 mg/dL [facility] Nitrite, ur Positive(A) Negative [facility] Leukocyte esterase, ur 3+(A) Negative [facility] UA reflex comment Reflex to microscopic UA will be performed. [facility] Urine 08/08/2023 7:59 PM CDT 08/08/2023 8:35 PM CDT us Chandler Verdugo MD LAB URINE ORDERABLES Final Result Performing Organization Address [facility]/ZIP Co de Phone Number [facility] Department [place] [address] * POCT glucose (08/08/2023 7:40 PM CDT) Glucose, POC 126 70 - 199 mg/dL Blood 08/08/2023 7:40 PM CDT 08/08/2023 7:40 PM CDT us Fred Boone MD LAB POCT ORDERABLES - DEVICE Fin al Result Performing Organization Address [facility] Co de Phone Number [facility] Department [place] [address] * (ABNORMAL) POCT glucose (08/08/2023 5:11 PM CDT) Glucose, POC 249(H) 70 - 199 mg/dL Blood 08/08/2023 5:11 PM CDT 08/08/2023 5:11 PM CDT us Fred Boone MD LAB POCT ORDERABLES - DEVICE Fin al Result Performing Organization Address [facility] de Phone Number [facility] [address] [place] [address] * POCT glucose (08/08/2023 12:32 PM CDT) Glucose, POC 133 70 - 199 mg/dL Blood 08/08/2023 12:3 2 PM CDT 08/08/2023 12:32 PM CDT Fred Boone MD LAB POCT ORDERABLES - DEVICE Fin al Result Performing Organization Address [facility] de Phone Number [facility] [address] [place] [address] * POCT glucose (08/08/2023 8:59 AM CDT) Glucose, POC 162 70 - 199 mg/dL Blood 08/08/2023 8:59 AM CDT 08/08/2023 8:59 AM CDT Fred Boone MD LAB POCT ORDERABLES - DEVICE Fin al Result Performing Organization Address [facility] [place] [address] * CT Head WO Contrast (08/08/2023 3:26 AM CDT) Anatomical Region Laterality Modality Head and Neck N/A Computed Tomogra phy 08/08/2023 9:40 AM CDT Impressions 08/08/2023 11:17 AM CDT 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 Dictated by: Lilibeth Zelaya MD, PhD The radiology attending physician has personally reviewed this study, and had reviewed and/or edited this written report and agrees with it. Electronically signed by: Delmy Wheeler M.D. Narrative 08/08/2023 11:17 AM CDT EXAMINATION: CT head without contrast HISTORY: 83-year-old with stroke follow-up TECHNIQUE: CT of the head was performed with images acquired from skull base to vertex without intravenous contrast. COMPARISON: CT dated 08/07/2023. 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 ??Patchy periventricular hypodensities, healthcare sales representative of chronic microvascular disease. Topogram demonstrates no lytic lesions or fractures. There is no acute intracranial hemorrhage. Ventricles are of normal size and morphology. No mass effect or midline shift is present. The wilde-white matter differentiation is normal. The visualized portions of the orbits are normal. The visualized portions of the mastoids are normal. The visualized portions of the paranasal sinuses are normal. No fractures are identified. Procedure Note Delmy Wheeler MD - 08/08/2023 EXAMINATION: CT head without contrast HISTORY: 83-year-old with stroke follow-up TECHNIQUE: CT of the head was performed with images acquired from skull base to vertex without intravenous contrast. COMPARISON: CT dated 08/07/2023. 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 Patchy periventricular hypodensities, healthcare sales representative of chronic microvascular disease. Topogram demonstrates no lytic lesions or fractures. There is no acute intracranial hemorrhage. Ventricles are of normal size and morphology. No mass effect or midline shift is present. The wilde-white matter differentiation is normal. The visualized portions of the orbits are normal. The visualized portions of the mastoids are normal. The visualized portions of the paranasal sinuses are normal. No fractures are identified. 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 Dictated by: Lilibeth Zelaya MD, PhD The radiology attending physician has personally reviewed this study, and had reviewed and/or edited this written report and agrees with it. Electronically signed by: Delmy Wheeler M.D. Parris Celestin NP IMG CT PROCEDURES Final R esult * eGFR (08/07/2023 8:32 PM CDT) eGFR >90 >=60 mL/min/1. 73 [...] interpretive data was last reviewed 2021. Blood 08/07/2023 8:32 PM CDT 08/07/2023 8:50 PM CDT us Parris Celestin NP LAB BLOOD ORDERABLES Sri l Result [facility] [place] [address] * Phosphorus (08/07/2023 8:32 PM CDT) Phosphorus, pl 3.0 2.3 - 4.5 mg/dL Blood 08/07/2023 8:32 PM CDT 08/07/2023 8:50 PM CDT Parris Celestin NP LAB BLOOD ORDERABLES Sri l Result Performing Organization Address City/[facility] Co de Phone Number [facility] Department [place] [address] * (ABNORMAL) Magnesium (08/07/2023 8:32 PM CDT) Pathologist [facility] Magnesium 2.8(H) 1.4 - 2.5 mg/dL Blood 08/07/2023 8:32 PM CDT 08/07/2023 8:50 PM CDT Parris Celestin RECORD MAKER LAB BLOOD ORDERABLES Sri l Result Performing Organization Address [facility] de Phone Number [facility] Department [place] [address] * (ABNORMAL) Comprehensive metabolic panel (08/07/2023 8:32 PM CDT) [facility] Sodium 139 135 - 145 mmol/L Potassium, pl 4.3 3.3 - 4.9 mmol/L [facility] Chloride 104 97 - 110 mmol/L [facility] CO2 25 22 - 32 mmol/L [facility] Anion gap 10 2 - 15 mmol/L [facility] BUN 13 6 - 25 mg/dL [facility] Creatinine 0.57(L) 0.60 - 1.10 mg/dL [facility] Glucose 128 70 - 199 mg/dL [facility] Comment: Interpretive Data Fasting glucose [...] interpretive data was last revised 2022. Calcium 9.5 8.5 - 10.3 mg/dL [facility] Bilirubin, total 0.6 0.1 - 1.2 mg/dL [facility] Protein, pl 7.4 6.5 - 8.5 g/dL [facility] Albumin 4.1 3.5 - 5.0 g/dL [facility] Alk phos 73 40 - 130 Units/L [facility] ALT 22 7 - 45 Units/L [facility] AST 25 10 - 45 Units/L [facility] Blood 08/07/2023 8:32 PM CDT 08/07/2023 8:50 PM CDT us Parris Celestin RECORD MAKER LAB BLOOD ORDERABLES Sri l Result [facility] Department [place] [address] * (ABNORMAL) CBC without differential (08/07/2023 8:32 PM CDT) [facility] WBC 8.4 3.8 - 9.9 K/cumm Hgb 12.4 11.9 - 15.5 g/dL [facility] Hct 37.8 35.6 - 45.5 % [facility] Plt 220 150 - 400 K/cumm [facility] MPV 10.1 9.1 - 12.3 fL [facility] RBC 3.90 3.90 - 5.20 M/cumm [facility] MCV 96.9(H) 81.3 - 96.4 fL [facility] MCH 31.8 27.1 - 33.3 pg [facility] MCHC 32.8 32.3 - 35.7 g/dL [facility] RDW CV 13.4 11.1 - 14.9 % [facility] RDW SD 47.4 35.7 - 48.1 fL [facility] NRBC abs 0.00 0.00 - 0.01 K/cumm [facility] Blood 08/07/2023 8:32 PM CDT 08/07/2023 8:50 PM CDT us Parris Celestin RECORD MAKER LAB BLOOD ORDERABLES Sri l Result [facility] [address] [place] [address] * POCT glucose (08/07/2023 8:01 PM CDT) Glucose, POC 104 70 - 199 mg/dL Blood 08/07/2023 8:01 PM CDT 08/07/2023 8:01 PM CDT Fred Boone MD LAB POCT ORDERABLES - DEVICE Fin al Result Performing Organization Address [facility] [place] [address] * POCT glucose (08/07/2023 5:13 PM CDT) Glucose, POC 134 70 - 199 mg/dL Blood 08/07/2023 5:13 PM CDT 08/07/2023 5:13 PM CDT Fred Boone MD LAB POCT ORDERABLES - DEVICE Fin al Result Performing Organization Address [facility] de Phone Number [facility] [address] [place] [address] * XR chest 1 view (Portable) (08/07/2023 3:09 PM CDT) Anatomical Region Laterality Modality Body, Chest N/A Computed Radiogr aphy 08/07/2023 4:22 PM CDT Impressions 08/07/2023 5:31 PM CDT The current study is compared with the prior radiograph dated 05/25/2021. Calcified nodule in the peripheral right midlung likely represents old granulomatous disease. ??No pulmonary edema. ??No pneumothorax or pleural effusion. ??Stable moderate cardiomegaly. ??Tortuous atherosclerotic aorta. Dictated by: Mehul Torres MD The radiology attending physician has personally reviewed this study, and had reviewed and/or edited this written report and agrees with it. Electronically signed by: Tommy Dennison M.D. Narrative 08/07/2023 5:31 PM CDT EXAMINATION: 1 view chest radiograph Procedure Note Tommy Dennison MD - 08/07/2023 EXAMINATION: 1 view chest radiograph IMPRESSION: The current study is compared with the prior radiograph dated 05/25/2021. Calcified nodule in the peripheral right midlung likely represents old granulomatous disease. No pulmonary edema. No pneumothorax or pleural effusion. Stable moderate cardiomegaly. Tortuous atherosclerotic aorta. Dictated by: Mehul Torres MD The radiology attending physician has personally reviewed this study, and had reviewed and/or edited this written report and agrees with it. Electronically signed by: Tommy Dennison M.D. Parris Celestin RECORD MAKER IMG XR PROCEDURES Final R esult * eGFR (08/07/2023 2:35 PM CDT) eGFR 89 >=60 mL/min/1. 73 [...] interpretive data was last reviewed 2021. Blood 08/07/2023 2:35 PM CDT 08/07/2023 2:51 PM CDT us Parris Celestin NP LAB BLOOD ORDERABLES Sri davalos Result [facility] [place] [address] * (ABNORMAL) Lipid panel (08/07/2023 2:35 PM [...] on 2017. Triglycerides 145 <=149 mg/dL [facility] Comment: Interpretive Data Ages < or [...] revised on 2017. HDL 32(L) >=40 mg/dL [facility] Comment: Interpretive Data Ages < or [...] on 2017. LDL, calculated 33 <=129 mg/dL [facility] Comment: Interpretive Data Ages < or [...] revised on 2017. Non-HDL Cholesterol 62 mg/dL [facility] Comment: Interpretive Data Ages < or [...] last revised on 2017. Chol/HDL ratio 3 [facility] Blood 08/07/2023 2:35 PM CDT 08/07/2023 2:51 PM CDT Parris Celestin NP LAB BLOOD ORDERABLES Sri l Result Performing Organization Address [facility] de Phone Number [facility] [place] [address] * (ABNORMAL) Hemoglobin A1c (08/07/2023 2:35 PM CDT) [facility] Hgb A1C 6.1(H) 4.0 - 5.6 % Estimated Average Glucose 128 mg/dL [facility] Comment: The ADA recommends reporting an estimated Average Glucose (eAG) with all Hemoglobin A1c results using the equation derived from a study of 507 normal and diabetic adults. ??Minority populations were underrepresented and children were not included. ?? (Diabetes Care 2020; 43(S1): S66-S76). ??The eAG is not equivalent to a fasting glucose. Blood 08/07/2023 2:35 PM CDT 08/07/2023 2:59 PM CDT Parris Celestin NP LAB BLOOD ORDERABLES Sri l Result Performing Organization Address [facility]/ZIP Co de Phone Number [facility] [place] [address] [place] [address] * (ABNORMAL) Protime-INR (08/07/2023 2:35 PM CDT) PT 13.8(H) 10.3 - 13.7 sec INR 1.21(H) 0.90 - 1.20 [facility] Comment: Interpretive data Oral anticoagulant therapeutic ranges: Venous thromboembolism prophylaxis or treatment: 2.0-3.0 CARDIOLOGY Standard range: 2.0-3.0 High-intensity range: 2.5-3.5 Refer to indication-specific guidelines for appropriate target ranges for prosthetic heart valve replacement. Current interpretive data was last revised on 2019. Blood 08/07/2023 2:35 PM CDT 08/07/2023 2:50 PM CDT Parris Celestin NP LAB BLOOD ORDERABLES Sri l Result Performing Organization Address City/[facility] Co de Phone Number [facility] [place] [address] [place] [address] * aPTT (08/07/2023 2:35 PM CDT) Pathologist [facility] aPTT 30 28 - 38 sec Comment: Interpretive Data Heparin therapeutic range: 66.0 - 100.0 seconds. Range based on correlation with therapeutic heparin activity range of 0.3 - 0.7 Units/mL. Current interpretive data was last revised on 2022. Blood 08/07/2023 2:35 PM CDT 08/07/2023 2:50 PM CDT Parris Celestin NP LAB BLOOD ORDERABLES Sri l Result Performing Organization Address City/[facility] Co de Phone Number [facility] Department [place] [address] [place] [address] * Type and screen (08/07/2023 2:35 PM CDT) [facility] Gian, indirect Negative ABO Rh O Positive [facility] Blood 08/07/2023 2:35 PM CDT 08/07/2023 2:49 PM CDT Narrative [facility] - 08/07/2023 3:39 PM CDT Has the patient had Daratumumab or Isatuximab in the past 6 months?->Unknown Parris Celestin NP LAB BLOOD BANK TEST ORDER GEE Final Result [facility] Department [place] [address] * (ABNORMAL) CBC without differential (08/07/2023 2:35 PM CDT) [facility] WBC 6.7 3.8 - 9.9 K/cumm Hgb 12.0 11.9 - 15.5 g/dL [facility] Hct 36.0 35.6 - 45.5 % [facility] Plt 214 150 - 400 K/cumm [facility] MPV 10.3 9.1 - 12.3 fL [facility] RBC 3.70(L) 3.90 - 5.20 M/cumm [facility] MCV 97.3(H) 81.3 - 96.4 fL [facility] MCH 32.4 27.1 - 33.3 pg [facility] MCHC 33.3 32.3 - 35.7 g/dL [facility] RDW CV 13.4 11.1 - 14.9 % [facility] RDW SD 48.2(H) 35.7 - 48.1 fL [facility] NRBC abs 0.00 0.00 - 0.01 K/cumm [facility] Blood 08/07/2023 2:35 PM CDT 08/07/2023 2:59 PM CDT Parris Celestin NP LAB BLOOD ORDERABLES Sri l Result Performing Organization Address City/[facility]/ZIP Co de Phone Number [facility] Department [place] [address] * Phosphorus (08/07/2023 2:35 PM CDT) [facility] Phosphorus, pl 2.9 2.3 - 4.5 mg/dL Blood 08/07/2023 2:35 PM CDT 08/07/2023 2:51 PM CDT Parris Celestin RECORD MAKER LAB BLOOD ORDERABLES Sri l Result Performing Organization Address [facility]/ZIP Co de Phone Number [facility] [place] [address] * Magnesium (08/07/2023 2:35 PM CDT) [facility] Magnesium 1.6 1.4 - 2.5 mg/dL Blood 08/07/2023 2:35 PM CDT 08/07/2023 2:51 PM CDT Parris Celestin RECORD MAKER LAB BLOOD ORDERABLES Sri l Result Performing Organization Address [facility] [place] [address] * Comprehensive metabolic panel (08/07/2023 2:35 PM CDT) [facility] Sodium 137 135 - 145 mmol/L Potassium, pl 4.9 3.3 - 4.9 mmol/L [facility] Chloride 107 97 - 110 mmol/L [facility] CO2 23 22 - 32 mmol/L [facility] Anion gap 7 2 - 15 mmol/L [facility] BUN 18 6 - 25 mg/dL [facility] Creatinine 0.63 0.60 - 1.10 mg/dL [facility] Glucose 117 70 - 199 mg/dL [facility] Comment: Interpretive Data Fasting glucose [...] interpretive data was last revised 2022. Calcium 9.2 8.5 - 10.3 mg/dL [facility] Bilirubin, total 0.6 0.1 - 1.2 mg/dL [facility] Protein, pl 7.1 6.5 - 8.5 g/dL [facility] Albumin 4.0 3.5 - 5.0 g/dL [facility] Alk phos 74 40 - 130 Units/L [facility] ALT 21 7 - 45 Units/L [facility] AST 24 10 - 45 Units/L [facility] Blood 08/07/2023 2:35 PM CDT 08/07/2023 2:51 PM CDT us Parris Celestin NP LAB BLOOD ORDERABLES Sri l Result [facility] [place] [address] * Troponin I high-sensitivity 2-hour (08/07/2023 2:35 PM CDT) [facility] Trop I hs 5 <=17 ng/L Comment: Interpretive Data For further hscTnI resources including the diagnostic algorithm and an aid in interpretation, copy and paste this link: [email or web address]/[email or web address] Current Interpretive Data last revised 2019. Trop I hs delta -1 ng/L [facility] Trop I hs interp Insignificant [facility] Blood 08/07/2023 2:35 PM CDT 08/07/2023 2:51 PM CDT us Jeana Peters MD LAB BLOOD ORDERABLES Fi nal Result [facility] [place] [address] * ECG 12 lead (08/07/2023 2:22 PM CDT) Ventricular Rate EKG/Min 76 BPM [facility] Atrial Rate 64 BPM [facility] QRS-Interval (MSEC) 100 ms [facility] QT-Interval (MSEC) 400 ms [facility] QTc 450 ms [facility] R [place] 77 degrees [facility] T [place] 23 degrees [facility] Diagnosis Atrial fibrillation Abnormal ECG Confirmed by Elisabet PLATA, [facility] ([id number]) on 08/07/2023 8:58:56 PM [facility] 08/07/2023 2:22 PM CDT 08/07/2023 8:58 PM CDT us Parris Celestin RECORD MAKER ECG ORDERABLES Final Res ult Performing Organization Address [facility] de Phone Number [facility] * POCT glucose (08/07/2023 2:02 PM CDT) Glucose, POC 109 70 - 199 mg/dL Blood 08/07/2023 2:02 PM CDT 08/07/2023 2:02 PM CDT us Chandler Verdugo MD LAB POCT ORDERABLES - DESTIN[place] CE Final Result Performing Organization Address [facility] de Phone Number [facility] Department [place] [address] * IR Percutaneous Arterial Thrombectomy, Intracranial (08/07/2023 1:42 PM CDT) Anatomical Region Laterality Modality Head N/A Radio Fluoroscop y 08/07/2023 2:15 PM CDT Impressions 08/08/2023 3:07 AM CDT 1. Initial angiography demonstrated a right middle cerebral artery M1 segment occlusion. 2. Successful 1-pass aspiration mechanical thrombectomy of the right middle cerebral artery. 3. Final angiography demonstrated reperfusion through the right middle cerebral artery territory with some slow flowing distal cortical vessels consistent with a eTICI 2C reperfusion. PLAN: 1. Admit to neuro-ICU for post-mechanical thrombectomy acute ischemic stroke care. 2. Lie flat with right leg straight for two hours. These results were discussed with the neuro-ICU team and the patient's family upon conclusion of the case. Dictated by: Mor Riley MD The radiology attending physician has personally reviewed this study, and had reviewed and/or edited this written report and agrees with it. Electronically signed by: Stuart Simental M.D. Narrative 08/08/2023 3:07 AM CDT ENDOVASCULAR THROMBECTOMY OF RIGHT MIDDLE CEREBRAL ARTERY CLINICAL INDICATION: 83 years-old Female with history of atrial fibrillation on apixaban presented with left sided weakness with a NIH stroke scale of 11. She was last known normal at 11:30 AM. She is independent at baseline. She did not receive thrombolytics. PROCEDURE: 1. ??Percutaneous arterial transluminal mechanical thrombectomy and/or infusion for thrombolysis, intracranial: aspiration thrombectomy of right middle cerebral artery 2. ??Cerebral angiography: Right common carotid artery and right internal carotid artery injections 3. ??Ultrasound-guided vascular access 4. ??Hemostatic device placement ATTENDING PHYSICIAN: Stuart Simental MD. He was present for the entire procedure. ASSISTING PHYSICIANS: MD Cyndie Bryan MD Vivek Gupta, MD ANESTHESIA: General anesthesia DEVICES: 18 G single wall puncture needle 8 Fr Terumo [place] sheath 10cm Zoom 88 Long Sheath 3mm J wire Terumo Glidewire Terumo Advantage Glidewire 5 Fr VTK catheter Adrián 24 Guidewire Mago Flow Plus Catheter 8 Fr AngioSeal VIP closure device MEDICATIONS: Medications were administered by the Department of Anesthesiology and are included in the MAR CONTRAST: Visipaque-320 30 mL ESTIMATED BLOOD LOSS: 100 mL COMPLICATIONS: None TECHNIQUE: Emergency consent was obtained as no individual legally authorized to provide consent could be located within a medically appropriate timeframe. General anesthesia was provided by the Department of Anesthesiology for the duration of the case. The patient was prepared and draped in the standard sterile fashion. The femoral head was localized by fluoroscopy. The right femoral artery was punctured using a single-wall needle under real-time ultrasound guidance. Ultrasound images demonstrated a patent vessel and were stored to PACS. A 8 [place] sheath was inserted over a 3 mm J wire and connected to a regulated pressurized infusion of heparinized saline. A coaxial assembly of Zoom 88 Long sheath over 5 Fr VTK catheter was advanced into the aortic arch under fluoroscopic visualization over the 3 mm J wire and then the 3 mm J wire was removed. ??Using fluoroscopic guidance, selective catheterization of the right internal carotid artery was attempted with a Terumo Glidewire but felt due to repeated herniations of the Zoom 88 long sheath into the aortic arch. ??The Terumo Glidewire was removed. ??Contrast was injected through the 5 Fr VTK catheter in the innominate artery in AP projection for a roadmap. Using fluoroscopic guidance, selective catheterization of the right internal carotid artery was performed using a Terumo advantage Glidewire and digital angiograms were obtained after the Zoom 88 long sheath was advanced into the right internal carotid artery and the 5 Fr VTK catheter and Terumo Advantage Glidewire were removed, centered over the head AP and lateral views. Initial angiography demonstrated a right middle cerebral artery M1 segment occlusion. We then elected to proceed with endovascular thrombectomy as planned. PASS 1 A Mago Flow Plus reperfusion catheter was flushed with contrast and attempted to be advanced through the long sheath to the site of occlusion but the catheter could not be advanced past the takeoff of the right ophthalmic artery within the right internal carotid artery. An Adrián 24 guidewire was custom-shaped and advanced through the Mago Flow Plus catheter to the site of occlusion in the right middle cerebral artery M1 segment and the Mago Flow Plus reperfusion catheter was advanced to the site of occlusion in the right middle cerebral artery M1 segment. The Adrián 24 guidewire was then removed. Suction was then applied to the reperfusion catheter. After 2 minutes had passed, we prepared to remove the clot. The Zoom 88 long sheath was advanced over the Mago Flow Plus catheter and into the petrous right internal carotid artery. With suction continuously applied to the reperfusion catheter as well as the long sheath, the reperfusion catheter was carefully withdrawn into the long sheath and ultimately out of the patient. Repeat angiography performed through the long sheath demonstrated reperfusion of the right middle cerebral artery territory with some slow flow in distal cortical vessels consistent with an eTICI 2C reperfusion. The long sheath was withdrawn proximal to the right common carotid artery bifurcation where contrast was injected for imaging centered over the neck in AP and lateral projections. This demonstrated some spasm within the right internal carotid artery but no evidence of thromboembolic complication or flow limiting stenosis. The long sheath was then withdrawn to near the arterial access site, where angiography was performed. The long sheath was then removed. Hemostasis was achieved after sheath removal by placement of an AngioSeal closure device. There were no immediate complications. The patient was transported to the the neurological intensive care unit, extubated, in unchanged neurological condition. Procedure Note Stuart Simental MD - 08/08/2023 ENDOVASCULAR THROMBECTOMY OF RIGHT MIDDLE CEREBRAL ARTERY CLINICAL INDICATION: 83 years-old Female with history of atrial fibrillation on apixaban presented with left sided weakness with a NIH stroke scale of 11. She was last known normal at 11:30 AM. She is independent at baseline. She did not receive thrombolytics. PROCEDURE: 1. Percutaneous arterial transluminal mechanical thrombectomy and/or infusion for thrombolysis, intracranial: aspiration thrombectomy of right middle cerebral artery 2. Cerebral angiography: Right common carotid artery and right internal carotid artery injections 3. Ultrasound-guided vascular access 4. Hemostatic device placement ATTENDING PHYSICIAN: Stuart Simental MD. He was present for the entire procedure. ASSISTING PHYSICIANS: MD Cyndie Bryan MD Vivek Gupta, MD ANESTHESIA: General anesthesia DEVICES: 18 G single wall puncture needle 8 Fr Terumo [place] sheath 10cm Zoom 88 Long Sheath 3mm J wire Terumo Glidewire Terumo Advantage Glidewire 5 Fr VTK catheter Adrián 24 Guidewire Mago Flow Plus Catheter 8 Fr AngioSeal VIP closure device MEDICATIONS: Medications were administered by the Department of Anesthesiology and are included in the MAR CONTRAST: Visipaque-320 30 mL ESTIMATED BLOOD LOSS: 100 mL COMPLICATIONS: None TECHNIQUE: Emergency consent was obtained as no individual legally authorized to provide consent could be located within a medically appropriate timeframe. General anesthesia was provided by the Department of Anesthesiology for the duration of the case. The patient was prepared and draped in the standard sterile fashion. The femoral head was localized by fluoroscopy. The right femoral artery was punctured using a single-wall needle under real-time ultrasound guidance. Ultrasound images demonstrated a patent vessel and were stored to PACS. A 8 [place] sheath was inserted over a 3 mm J wire and connected to a regulated pressurized infusion of heparinized saline. A coaxial assembly of Zoom 88 Long sheath over 5 Fr VTK catheter was advanced into the aortic arch under fluoroscopic visualization over the 3 mm J wire and then the 3 mm J wire was removed. Using fluoroscopic guidance, selective catheterization of the right internal carotid artery was attempted with a Terumo Glidewire but felt due to repeated herniations of the Zoom 88 long sheath into the aortic arch. The Terumo Glidewire was removed. Contrast was injected through the 5 Fr VTK catheter in the innominate artery in AP projection for a roadmap. Using fluoroscopic guidance, selective catheterization of the right internal carotid artery was performed using a Terumo advantage Glidewire and digital angiograms were obtained after the Zoom 88 long sheath was advanced into the right internal carotid artery and the 5 Fr VTK catheter and Terumo Advantage Glidewire were removed, centered over the head AP and lateral views. Initial angiography demonstrated a right middle cerebral artery M1 segment occlusion. We then elected to proceed with endovascular thrombectomy as planned. PASS 1 A Mago Flow Plus reperfusion catheter was flushed with contrast and attempted to be advanced through the long sheath to the site of occlusion but the catheter could not be advanced past the takeoff of the right ophthalmic artery within the right internal carotid artery. An Adrián 24 guidewire was custom-shaped and advanced through the Mago Flow Plus catheter to the site of occlusion in the right middle cerebral artery M1 segment and the Mago Flow Plus reperfusion catheter was advanced to the site of occlusion in the right middle cerebral artery M1 segment. The Adrián 24 guidewire was then removed. Suction was then applied to the reperfusion catheter. After 2 minutes had passed, we prepared to remove the clot. The Zoom 88 long sheath was advanced over the Mago Flow Plus catheter and into the petrous right internal carotid artery. With suction continuously applied to the reperfusion catheter as well as the long sheath, the reperfusion catheter was carefully withdrawn into the long sheath and ultimately out of the patient. Repeat angiography performed through the long sheath demonstrated reperfusion of the right middle cerebral artery territory with some slow flow in distal cortical vessels consistent with an eTICI 2C reperfusion. The long sheath was withdrawn proximal to the right common carotid artery bifurcation where contrast was injected for imaging centered over the neck in AP and lateral projections. This demonstrated some spasm within the right internal carotid artery but no evidence of thromboembolic complication or flow limiting stenosis. The long sheath was then withdrawn to near the arterial access site, where angiography was performed. The long sheath was then removed. Hemostasis was achieved after sheath removal by placement of an AngioSeal closure device. There were no immediate complications. The patient was transported to the the neurological intensive care unit, extubated, in unchanged neurological condition. IMPRESSION: 1. Initial angiography demonstrated a right middle cerebral artery M1 segment occlusion. 2. Successful 1-pass aspiration mechanical thrombectomy of the right middle cerebral artery. 3. Final angiography demonstrated reperfusion through the right middle cerebral artery territory with some slow flowing distal cortical vessels consistent with a eTICI 2C reperfusion. PLAN: 1. Admit to neuro-ICU for post-mechanical thrombectomy acute ischemic stroke care. 2. Lie flat with right leg straight for two hours. These results were discussed with the neuro-ICU team and the patient's family upon conclusion of the case. Dictated by: Mor Riley MD The radiology attending physician has personally reviewed this study, and had reviewed and/or edited this written report and agrees with it. Electronically signed by: Stuart Simental M.D. Khanh Esquivel MD IMG IR PROCEDURES Final Result * ECG 12-LEAD (08/07/2023 12:34 PM CDT) Narrative [facility] - 08/07/2023 12:34 PM CDT Fred Elena MD ? 08/07/2023 12:35 PM ECG 12 lead Date/Time: 08/07/2023 12:34 PM Performed by: Fred Elena MD Authorized by: Jeana Peters MD ?? Rate: ??ECG rate: ??85 Rhythm: ??Rhythm: atrial fibrillation ?? Ectopy: ??Ectopy: none ?? QRS: ??QRS axis: ??Normal ??QRS intervals: ??Normal Conduction: ??Conduction: normal ?? ST segments: ??ST segments: ??Normal T waves: ??T waves: normal ?? Previous ECG: ??Previous ECG: ??Unavailable Interpretation: ??Interpretation: non-specific ?? Recommended Follow-up: ??Recommended follow up: further workup in the ED ?? Comments: ?? Moderate risk Procedure Note Fred Elena MD - 08/07/2023 12:34 PM CDT Procedure ECG 12 lead Date/Time: 08/07/2023 12:34 PM Performed by: Fred Elena MD Authorized by: Jeana Peters MD Rate: ECG rate: 85 Rhythm: Rhythm: atrial fibrillation Ectopy: Ectopy: none QRS: QRS axis: Normal QRS intervals: Normal Conduction: Conduction: normal ST segments: ST segments: Normal T waves: T waves: normal Previous ECG: Previous ECG: Unavailable Interpretation: Interpretation: non-specific Recommended Follow-up: Recommended follow up: further workup in the ED Comments: Moderate risk Fred Elena MD 08/07/23 1235 us Jeana Peters MD ECG ORDERABLES Final R esult [facility] * ND CRITICAL CARE ILL/INJURED PATIENT INIT 30-74 MIN (08/07/2023 12:32 PM CDT) Narrative Fred Elena MD - 08/07/2023 12:32 PM CDT Fred Elena MD ? 08/07/2023 12:33 PM Critical Care Performed by: Fred Elena MD Authorized by: Fred Elena MD ?? Critical care provider statement: As reflected in the history, physical exam, orders, notes, and/or MDM, I was personally present while the patient was critically ill and provided critical care services for 35 minutes, excluding time involved in separately billable procedures. ??Critical care was necessary to treat or prevent imminent or life-threatening deterioration of the following condition(s): ?? acute cerebrovascular accident (CVA) and severe neurologic condition ??Critical care was time spent by me providing the following: ? continuous telemetry, continuous pulse oximetry, continuous capnography, interpretation of bedside monitors, imaging, and arterial/venous lab draws and serial bedside patient exams ?? frequent neurologic exams, decision regarding acute lytic therapy and initiation of stroke management ?? I provided emergent necessary critical care [...] spent time documenting in the medical record. I admitted this patient to a continuous cardiac monitored bed. I admitted this patient to an Intensive Care unit (ICU) and discussed management with the admitting team. us Fred Elena MD IN CLINIC/BEDSIDE ORDERAB LES Final Result * CTA/CTP Rapid Stroke (C) (08/07/2023 12:29 PM CDT) Anatomical Region Laterality Modality Head and Neck N/A Computed Tomogra phy 08/07/2023 12:5 8 PM CDT Impressions 08/07/2023 5:48 PM CDT 1. No evidence of acute intracranial hemorrhage. 2. Distal right M1 occlusion with poor collateral flow. Associated large right cerebral hemispheric area of ischemic penumbra, with small core infarct. 3. Chronic/incidental findings, as described above. Critical findings were discussed with Chris, stroke resident by Emanuel Lopes MD at 08/07/2023 12:35 PM. Dictated by: Paxton Lopes MD The radiology attending physician has personally reviewed this study, and had reviewed and/or edited this written report and agrees with it. Electronically signed by: Yonis Holguin M.D. Narrative 08/07/2023 5:48 PM CDT EXAMINATION: 1. Computed tomography angiography (CTA) of the head without and with contrast 2. Computed tomography angiography (CTA) of the neck with contrast 3. CT perfusion imaging of the head with contrast HISTORY: Stroke TECHNIQUE: CT of the head was performed with images acquired from skull base to vertex without intravenous contrast. Computed tomographic angiography was then obtained from the aortic arch to the vertex following the uneventful administration of intravenous contrast. 3D images were generated on a dedicated workstation. CT perfusion of the brain was performed with intravenous contrast using a separate data acquisition. The data was transmitted to a separate workstation for processing by RAPID software (2sms) to produce automated calculations of the estimated cerebral blood flow and Tmax. Contrast information: 110 mL Optiray-350 COMPARISON: CT 05/28/2021 FINDINGS: HEAD CT FINDINGS: Mild parenchymal volume loss is present. There are patchy periventricular hypodensities, nonspecific but likely representing sequela of chronic microvascular disease. There is a moderate-sized area of encephalomalacia within the left occipital lobe with associated cortical laminar necrosis, likely on the basis of prior watershed infarct. There is a subtle dense right MCA sign, which is further described below. There is no acute intracranial hemorrhage. There is no mass effect or midline shift. Bilateral lens extractions are noted. The paranasal sinuses and mastoid air cells are clear. ANGIOGRAPHIC FINDINGS: There is a bovine configuration of the aortic arch. There is no significant stenosis of the origins of the great vessels. Left anterior circulation: There are scattered atheromatous plaques, for example at the level of the left carotid bulb with possibly ulcerated plaque (series 7, image and 424). The left ICA takes a short retropharyngeal course. L CCA: no occlusion or significant stenosis L carotid bifurcation: no occlusion or significant stenosis L ICA proximal: no occlusion or significant stenosis L ICA distal: no occlusion or significant stenosis L ICA terminus: no occlusion or significant stenosis L M1: no occlusion or significant stenosis L M2 branches: no occlusion or significant stenosis L A2: no occlusion or significant stenosis Right anterior circulation: There are scattered atheromatous plaques, for example at the level of the right carotid bulb. R CCA: no occlusion or significant stenosis R carotid bifurcation: no occlusion or significant stenosis R ICA proximal: no occlusion or significant stenosis R ICA distal: no occlusion or significant stenosis R ICA terminus: no occlusion or significant stenosis R M1: There is complete occlusion of the distal M1 segment of the right MCA. R M2 branches: There is no significant contrast opacification of the distal right MCA branches, consistent with poor collateral flow. R A2: no occlusion or significant stenosis Posterior circulation: There is scattered intracranial atherosclerosis, most prominent within the posterior circulation, right greater than left. L Vertebral Artery: no occlusion or significant stenosis R Vertebral Artery: no occlusion or significant stenosis Basilar Artery: no occlusion or significant stenosis L MOLD PRESSER: no occlusion or significant stenosis R MOLD PRESSER: no occlusion or significant stenosis No cerebral aneurysm is seen. There is no evidence for an arteriovenous malformation. There is no suspicious cervical lymphadenopathy. Degenerative changes are noted within the spine with scattered areas of severe neuroforaminal narrowing. Limited views of the lung apices are unremarkable. PERFUSION FINDINGS: Estimated ischemic core volume (rCBF < 0.3): 14 mL Estimated hypoperfusion volume (Tmax > 6 sec): 253 mL Procedure Note Yonis Holguin MD - 08/07/2023 EXAMINATION: 1. Computed tomography angiography (CTA) of the head without and with contrast 2. Computed tomography angiography (CTA) of the neck with contrast 3. CT perfusion imaging of the head with contrast HISTORY: Stroke TECHNIQUE: CT of the head was performed with images acquired from skull base to vertex without intravenous contrast. Computed tomographic angiography was then obtained from the aortic arch to the vertex following the uneventful administration of intravenous contrast. 3D images were generated on a dedicated workstation. CT perfusion of the brain was performed with intravenous contrast using a separate data acquisition. The data was transmitted to a separate workstation for processing by RAPID software (2sms) to produce automated calculations of the estimated cerebral blood flow and Tmax. Contrast information: 110 mL Optiray-350 COMPARISON: CT 05/28/2021 FINDINGS: HEAD CT FINDINGS: Mild parenchymal volume loss is present. There are patchy periventricular hypodensities, nonspecific but likely representing sequela of chronic microvascular disease. There is a moderate-sized area of encephalomalacia within the left occipital lobe with associated cortical laminar necrosis, likely on the basis of prior watershed infarct. There is a subtle dense right MCA sign, which is further described below. There is no acute intracranial hemorrhage. There is no mass effect or midline shift. Bilateral lens extractions are noted. The paranasal sinuses and mastoid air cells are clear. ANGIOGRAPHIC FINDINGS: There is a bovine configuration of the aortic arch. There is no significant stenosis of the origins of the great vessels. Left anterior circulation: There are scattered atheromatous plaques, for example at the level of the left carotid bulb with possibly ulcerated plaque (series 7, image and 424). The left ICA takes a short retropharyngeal course. L CCA: no occlusion or significant stenosis L carotid bifurcation: no occlusion or significant stenosis L ICA proximal: no occlusion or significant stenosis L ICA distal: no occlusion or significant stenosis L ICA terminus: no occlusion or significant stenosis L M1: no occlusion or significant stenosis L M2 branches: no occlusion or significant stenosis L A2: no occlusion or significant stenosis Right anterior circulation: There are scattered atheromatous plaques, for example at the level of the right carotid bulb. R CCA: no occlusion or significant stenosis R carotid bifurcation: no occlusion or significant stenosis R ICA proximal: no occlusion or significant stenosis R ICA distal: no occlusion or significant stenosis R ICA terminus: no occlusion or significant stenosis R M1: There is complete occlusion of the distal M1 segment of the right MCA. R M2 branches: There is no significant contrast opacification of the distal right MCA branches, consistent with poor collateral flow. R A2: no occlusion or significant stenosis Posterior circulation: There is scattered intracranial atherosclerosis, most prominent within the posterior circulation, right greater than left. L Vertebral Artery: no occlusion or significant stenosis R Vertebral Artery: no occlusion or significant stenosis Basilar Artery: no occlusion or significant stenosis L MOLD PRESSER: no occlusion or significant stenosis R MOLD PRESSER: no occlusion or significant stenosis No cerebral aneurysm is seen. There is no evidence for an arteriovenous malformation. There is no suspicious cervical lymphadenopathy. Degenerative changes are noted within the spine with scattered areas of severe neuroforaminal narrowing. Limited views of the lung apices are unremarkable. PERFUSION FINDINGS: Estimated ischemic core volume (rCBF < 0.3): 14 mL Estimated hypoperfusion volume (Tmax > 6 sec): 253 mL IMPRESSION: 1. No evidence of acute intracranial hemorrhage. 2. Distal right M1 occlusion with poor collateral flow. Associated large right cerebral hemispheric area of ischemic penumbra, with small core infarct. 3. Chronic/incidental findings, as described above. Critical findings were discussed with Chris, stroke resident by Emanuel Lopes MD at 08/07/2023 12:35 PM. Dictated by: Paxton Lopes MD The radiology attending physician has personally reviewed this study, and had reviewed and/or edited this written report and agrees with it. Electronically signed by: Yonis Holguin M.D. Jeana Peters MD IMG CT PROCEDURES Final Result * eGFR (08/07/2023 12:15 PM CDT) eGFR >90 >=60 mL/min/1. 73 [...] interpretive data was last reviewed 2021. Blood 08/07/2023 12:1 5 PM CDT 08/07/2023 12:23 PM CDT Jeana Peters MD LAB BLOOD ORDERABLES Fi nal Result [facility] [place] [address] * Differential, auto (08/07/2023 12:15 PM CDT) Pathologist [facility] Neutrophil abs 5.2 1.5 - 6.5 K/cumm Imm gran abs 0.0 0.0 - 0.1 K/cumm [facility] Lymphocyte abs 1.8 0.8 - 3.3 K/cumm [facility] Monocyte abs 0.7 0.2 - 0.8 K/cumm [facility] Eosinophil abs 0.2 0.0 - 0.5 K/cumm [facility] Basophil abs 0.0 0.0 - 0.1 K/cumm [facility] Neutrophil pct 65.2 % [facility] Comment: Interpretive Data Percent cell count reference ranges are not reported, since discordance with absolute values may lead to misinterpretation of CBC data. Current Interpretive Data was last revised on 2017. Imm gran pct 0.3 % [facility] Comment: Interpretive Data Percent cell count reference ranges are not reported, since discordance with absolute values may lead to misinterpretation of CBC data. Current Interpretive Data was last revised on 2017. Lymphocyte pct 23.2 % [facility] Comment: Interpretive Data Percent cell count reference ranges are not reported, since discordance with absolute values may lead to misinterpretation of CBC data. Current Interpretive Data was last revised on 2017. Monocyte pct 8.9 % [facility] Comment: Interpretive Data Percent cell count reference ranges are not reported, since discordance with absolute values may lead to misinterpretation of CBC data. Current Interpretive Data was last revised on 2017. Eosinophil pct 2.0 % [facility] Comment: Interpretive Data Percent cell count reference ranges are not reported, since discordance with absolute values may lead to misinterpretation of CBC data. Current Interpretive Data was last revised on 2017. Basophil pct 0.4 % [facility] Comment: Interpretive Data Percent cell count reference ranges are not reported, since discordance with absolute values may lead to misinterpretation of CBC data. Current Interpretive Data was last revised on 2017. Blood 08/07/2023 12:1 5 PM CDT 08/07/2023 12:24 PM CDT us Jeana Peters MD LAB BLOOD ORDERABLES Fi nal Result [facility] Department [place] [address] * Heparin anti factor Xa activity (08/07/2023 12:15 PM CDT) Anti Factor Xa 0.50 IUnits/mL Comment: Code Blue Specimen Interpretive Data Enoxaparin therapeutic range (peak): VTE treatment, Q12hr dosin.60-1.00 IUnits/mL VTE treatment, Q24hr dosin.00-2.00 IUnits/mL Q24hr dosing for renal impairment (CrCl <30 mL/min): 0.60-1.00 IUnits/mL VTE prevention: 0.10-0.40 IUnits/mL - Anti-Xa therapeutic ranges apply to blood samples drawn 4 hours after last dose (peak). - Unfractionated heparin (UFH) therapeutic range: 0.30-0.70 IUnits/mL - Direct factor Xa inhibitors (rivaroxaban, apixaban): Results must be interpreted qualitatively. No activity detected suggests little anticoagulant activity. - In severe antithrombin deficiency, anti-Xa measurement may be inaccurate. - Interpretive guidelines developed in adult populations. Interpretive guidelines for pediatric patients have not been rigorously defined. - Current interpretive data was last revised on 2018. Blood 08/07/2023 12:1 5 PM CDT 08/07/2023 12:23 PM CDT Khanh Esquivel MD LAB BLOOD ORDERABLES Ed ited Result - Final [facility] [place] [address] * Troponin I high-sensitivity series (baseline, 2hr, 4hr, 6hr) (08/07/2023 12:15 PM CDT) Trop I hs 6 <=17 ng/L Comment: Code Blue Specimen Interpretive Data For further hscTnI resources including the diagnostic algorithm and an aid in interpretation, copy and paste this link: [email or web address]/[email or web address] Current Interpretive Data last revised 2019. Blood 08/07/2023 12:1 5 PM CDT 08/07/2023 12:24 PM CDT Jeana Peters MD LAB BLOOD ORDERABLES Fi nal Result Performing Organization Address [facility] de Phone Number [facility] [place] [address] * aPTT (08/07/2023 12:15 PM CDT) aPTT 32 28 - 38 sec Comment: Code Blue Specimen Interpretive Data Heparin therapeutic range: 66.0 - 100.0 seconds. Range based on correlation with therapeutic heparin activity range of 0.3 - 0.7 Units/mL. Current interpretive data was last revised on 2022. Blood (Blood, Venous) 08/07/2023 12:15 PM CDT 08/07/2023 12:23 PM CDT Narrative [facility] - 08/07/2023 12:45 PM CDT Potential stroke patient. Jeana Peters MD LAB BLOOD ORDERABLES Fi nal Result Performing Organization Address [facility] [place] [address] * (ABNORMAL) Comprehensive metabolic panel (08/07/2023 12:15 PM CDT) Sodium 140 135 - 145 mmol/L Comment:Code Blue Specimen Potassium, pl 4.4 3.3 - 4.9 mmol/L [facility] Comment:Code Blue Specimen Chloride 107 97 - 110 mmol/L [facility] Comment:Code Blue Specimen CO2 23 22 - 32 mmol/L [facility] Comment:Code Blue Specimen Anion gap 10 2 - 15 mmol/L [facility] Comment:Code Blue Specimen BUN 18 6 - 25 mg/dL [facility] Comment:Code Blue Specimen Creatinine 0.56(L) 0.60 - 1.10 mg/dL [facility] Comment:Code Blue Specimen Glucose 116 70 - 199 mg/dL [facility] Comment: Code Blue Specimen Interpretive Data Fasting glucose >/= 126 mg/dl [...] interpretive data was last revised 2022. Calcium 9.9 8.5 - 10.3 mg/dL [facility] Comment:Code Blue Specimen Bilirubin, total 0.5 0.1 - 1.2 mg/dL [facility] Comment:Code Blue Specimen Protein, pl 7.4 6.5 - 8.5 g/dL [facility] Comment:Code Blue Specimen Albumin 4.4 3.5 - 5.0 g/dL [facility] Comment:Code Blue Specimen Alk phos 82 40 - 130 Units/L [facility] Comment:Code Blue Specimen ALT 21 7 - 45 Units/L [facility] Comment:Code Blue Specimen AST 22 10 - 45 Units/L [facility] Comment:Code Blue Specimen Blood (Blood, Venous) 08/07/2023 12:15 PM CDT 08/07/2023 12:23 PM CDT Narrative [facility] - 08/07/2023 12:55 PM CDT Potential Stroke Patient Jeana Peters MD LAB BLOOD ORDERABLES Fi nal Result [facility] [place] [address] * (ABNORMAL) CBC with auto differential (08/07/2023 12:15 PM CDT) WBC 7.9 3.8 - 9.9 K/cumm Comment:Code Blue Specimen Hgb 12.5 11.9 - 15.5 g/dL [facility] Hct 38.3 35.6 - 45.5 % [facility] Plt 229 150 - 400 K/cumm [facility] MPV 10.0 9.1 - 12.3 fL [facility] RBC 3.88(L) 3.90 - 5.20 M/cumm [facility] MCV 98.7(H) 81.3 - 96.4 fL [facility] MCH 32.2 27.1 - 33.3 pg [facility] MCHC 32.6 32.3 - 35.7 g/dL [facility] RDW CV 13.3 11.1 - 14.9 % [facility] RDW SD 48.1 35.7 - 48.1 fL [facility] NRBC abs 0.00 0.00 - 0.01 K/cumm [facility] Blood (Blood, Venous) 08/07/2023 12:15 PM CDT 08/07/2023 12:24 PM CDT Narrative [facility] - 08/07/2023 12:38 PM CDT Potential Stroke Patient Jeana Peters MD LAB BLOOD ORDERABLES Fi nal Result Performing Organization Address City/[facility]/ZIP Co de Phone Number [facility] Department [place] [address] * POCT prothrombin time, whole blood (08/07/2023 12:12 PM CDT) [facility] PT, POC 11.7 10.6 - 13.5 sec INR, bld, POC 1.0 0.8 - 1.2 [facility] Blood 08/07/2023 12:1 2 PM CDT 08/07/2023 12:12 PM CDT Chandler Verdugo MD LAB POCT ORDERABLES - [place] CE Final Result Performing Organization Address City/[facility]/ZIP Co de Phone Number [facility] Department [place] [address] * POCT glucose (08/07/2023 12:11 PM CDT) Glucose, POC 115 70 - 199 mg/dL Blood 08/07/2023 12:1 1 PM CDT 08/07/2023 12:11 PM CDT us Notinfile Unknown LAB POCT ORDERABLES - DEVICE F inal Result [facility] [place] [address] documented in this encounter Visit Diagnoses Diagnosis Acute ischemic right MCA stroke (HCC) Unspecified cerebral artery occlusion with cerebral infarction Acute ischemic right MCA stroke (HCC) Unspecified cerebral artery occlusion with cerebral infarction documented in this encounter Admitting Diagnoses Diagnosis Acute ischemic right MCA stroke (HCC) Unspecified cerebral artery occlusion with cerebral infarction documented in this encounter Administered Medications Inactive Administered Medications - up to 3 most recent administrations Medication Order MAR Action Action Date Dose Rate Site acetaminophen (TYLENOL) tablet 650 mg 650 mg, oral, Every 4 hours PRN, 1st line for pain, Starting on Thu08/07/23 at 1423, Administer if patient can swallow tablets., Indications: PainIndications:Pain Given 08/09/2023 5:54 PM CDT 650 mg Given 08/08/2023 6:28 PM CDT 650 mg Given 08/08/2023 12:31 AM CDT 650 mg aspirin chewable tablet 81 mg 81 mg, oral, Daily, First dose on Thu08/07/23 at 1500 Given 08/10/2023 8:13 AM CDT 81 mg Given 08/09/2023 9:25 AM CDT 81 mg Given 08/08/2023 9:00 AM CDT 81 mg atorvastatin (LIPITOR) tablet 40 mg 40 mg, oral, Daily, First dose on Thu08/07/23 at 1500 Given 08/10/2023 8:13 AM CDT 40 mg Given 08/09/2023 9:25 AM CDT 40 mg Given 08/08/2023 9:00 AM CDT 40 mg Carrier Fluids for Secondary Infusion - 0.9% Sodium Chloride 30 mL, intravenous, As needed, For priming tubing and/or flushing, Starting on Thu08/07/23 at 1422, 0-250 ml/hr to flush line after IV infusions when no maintenance IV ordered. Infuse 30mL at the same rate as the secondary infusion. Run as primary IV, not intended for KVO. carvediloL (COREG) tablet 12.5 mg 12.5 mg, oral, 2 times daily with meals (bkfst, dinner), First dose on Thu08/08/23 at 1915 Given 08/10/2023 8:13 AM CDT 12.5 mg Given 08/09/2023 5:33 PM CDT 12.5 mg Given 08/09/2023 9:24 AM CDT 12.5 mg dextrose (D10W) 10% bolus 250 mL 250 mL, intravenous, at 1,000 mL/hr, Administer over 15 Minutes, Every 15 min PRN, blood glucose less than 70 mg/dL and UNABLE to swallow/take PO glucose/juice., Starting on Thu08/07/23 at 1720, After treatment for hypoglycemia, recheck BG followed by treatment every 15 minutes until the BG is greater than 100 mg/dL. Then check BG 1 hour post treatment. If BG is less than 100 mg/dL, repeat Q15 minute BG checks and treatment. Call MD for each episode of hypoglycemia., Indications: hypoglycemic disorderIndications:hypoglycemic disorder dextrose gel in packet 15 g 15 g, oral, Every 15 min PRN, low blood sugar, blood glucose less than 70 mg/dL, Starting on Thu08/07/23 at 1720, If patient is alert and able to [...] for each episode of hypoglycemia., Indications: hypoglycemic disorderIndications:hypoglycemic disorder docusate sodium (COLACE) capsule 100 mg 100 mg, oral, 2 times daily, First dose on Thu08/07/23 at 2100, If able to swallow capsules. Hold for diarrhea., Indications: constipation, Stool SoftenerIndications:constipation,Stool Softener Given 08/09/2023 10:08 PM CDT 100 mg Given 08/09/2023 9:25 AM CDT 100 mg Given 08/08/2023 9:00 AM CDT 100 mg fosfomycin (MONUROL) packet 3 g 3 g, oral, Once, On Thu08/09/23 at 1230, For 1 dose, Pour contents of packet into 3-4 oz of cool water, stir to dissolve and administer immediately., Indications: Urinary Tract/Genitourinary InfectionIndications:Urinar y Tract/Genitourinary Infection Given 08/09/2023 6:11 PM CDT 3 g glucagon injection 1 mg 1 mg, intramuscular, Every 30 min PRN, low blood sugar, blood glucose less than 70 mg/dL AND no IV access AND unable to take PO glucose/juice., Starting on Thu08/07/23 at 1720, After Glucagon is administered, position patient on [...] 1 mL SWFI. Use immediately following reconstitution. heparin 5,000 unit/mL injection 5,000 Units 5,000 Units, subcutaneous, Every 8 hours scheduled, First dose on Thu08/07/23 at 2200, Indications: Deep Vein Thrombosis PreventionIndications:Deep Vein Thrombosis Prevention Given 08/10/2023 1:30 PM CDT 5,000 Units Left Lower Abdomen Given 08/10/2023 6:26 AM CDT 5,000 Units L eft Lower Abdomen Given 08/09/2023 10:08 PM CDT 5,000 Units Left Lower Abdomen hydrALAZINE (APRESOLINE) injection 10 mg 10 mg, intravenous, Administer over 2 Minutes, Every 15 min PRN, high blood pressure, for BP > 175/100 and HR < 70, Starting on Thu08/07/23 at 1808 insulin lispro (HumaLOG, ADMELOG) 100 unit/mL injection 0-5 Units 0-5 Units, subcutaneous, 4 times daily before meals & nightly, First dose (after last modification) on Thu08/07/23 at 1815, Blood glucose mg/dL: 149 or less: No insulin 150-199: add 1 unit 200-249: add 2 units 250-299: add 3 units 300-349: add 4 units and notify physician for adjustment of insulin orders. 350-399: add 5 units and notify physician for adjustment of insulin orders. Over 400: Notify physician for adjustment of insulin orders. Do NOT hold for NPO Status, Indications: Diabetes MellitusIndications:Diabetes Mellitus Given 08/10/2023 12:04 PM CDT 1 Units Right Lower Abdomen Given 08/10/2023 8:12 AM CDT 1 Units Le ft Lower Abdomen Given 08/09/2023 10:32 PM CDT 1 Units L eft Upper Arm iodixanoL (VISIPAQUE) 320 mg iodine/mL injection As needed, Starting on Thu08/07/23 at 1340, Intra-Op Given 08/07/2023 1:40 PM CDT 30 mL ioversoL (OPTIRAY 350) syringe 125 mL 125 mL, intravenous, Once in imaging, contrast, Starting on Thu08/07/23 at 1234, For 1 dose Contrast Given 08/07/2023 12:36 PM CDT 110 mL labetaloL (NORMODYNE,TRANDATE) injection 10 mg 10 mg, intravenous, at 60 mL/hr, Administer over 2 Minutes, Every 15 min PRN, high blood pressure, BP > 175/100 and HR > 70, Starting on Thu08/07/23 at 1808 Given 08/08/2023 12:05 AM CDT 10 mg 60 mL/hr Given 08/07/2023 6:20 PM CDT 10 mg 60 mL/hr levothyroxine (SYNTHROID) tablet 50 mcg 50 mcg, oral, Daily (early AM), First dose on Thu08/08/23 at 0600, Administer on an empty stomach, preferably 30 minutes before breakfast. Take 4 hours apart from antacids, iron and calcium products. Separate from tube feeds, if applicable. Given 08/10/2023 6:26 AM CDT 50 mcg Given 08/09/2023 5:01 AM CDT 50 mcg Given 08/08/2023 5:48 AM CDT 50 mcg magnesium sulfate 4 g/100 mL in water (premix) 4 g 4 g, intravenous, Administer over 90 Minutes, Once, On Thu08/07/23 at 1615, For 1 dose New Bag 08/07/2023 4:58 PM CDT 4 g ondansetron (ZOFRAN) injection 4 mg 4 mg, intravenous, Administer over 2 Minutes, Every 6 hours PRN, nausea, vomiting, Starting on Thu08/07/23 at 1415, Proceed to trimethobenzamide if no relief within 30 minutes. , Indications: Nausea and VomitingIndications:Nausea and Vomiting ramelteon (ROZEREM) tablet 8 mg 8 mg, oral, Nightly PRN, sleep, Starting on Thu08/09/23 at 2223, Indications: Sleep-Onset InsomniaIndications:Sleep-Onset Insomnia Given 08/09/2023 10:32 PM CDT 8 mg senna (SENOKOT) tablet 1 tablet 1 tablet, oral, 2 times daily, First dose on Thu08/07/23 at 2100, If able to swallow tablets. Hold for diarrhea., Indications: constipationIndications:constipation Given 08/09/2023 10:08 PM CDT 1 tabl et Given 08/09/2023 9:25 AM CDT 1 tablet Given 08/08/2023 9:00 AM CDT 1 tablet sodium chloride 0.9% flush 0.5-20 mL 0.5-20 mL, intra-catheter, Every 8 hours scheduled, First dose on Thu08/07/23 at 1500, Flush volume based on line type and size. Given 08/10/2023 6:30 AM CDT 10 mL Given 08/09/2023 10:17 PM CDT 10 mL Given 08/09/2023 2:46 PM CDT 10 mL sodium chloride 0.9% flush 0.5-20 mL 0.5-20 mL, intra-catheter, As needed, line care, Starting on Thu08/07/23 at 1422, Flush volume based on line type and size. Flush before and after each use. trimethobenzamide (TIGAN) injection 200 mg 200 mg, intramuscular, Every 6 hours PRN, nausea, vomiting, Starting on Thu08/07/23 at 1415, If not relieved by ondansetron within 30 minutes. , Indications: Nausea and VomitingIndications:Nausea and Vomiting documented in this encounter Discontinued Medications Medication Sig Discontinue Reason Start Date End Da te Eliquis 5 mg tablet TAKE 1 TABLET BY MOUTH TWICE A DAY 09/22/2022 08/10/2023 furosemide (LASIX) 40 mg tablet Take 1 tablet (40 mg total) by mouth as needed (shortness of breath, lower extremity or abdominal swelling, or weight gain of 3 lbs or more in 1 day) Stop Taking at Discharge 07/28/2022 08/10/2023 documented as of this encounter Active and Recently Administered Medications Times are shown in CDT. Scheduled Medication Order 08/08/2023 08/09/2023 08/10/2023 aspirin chewable tablet 81 mg 81 mg, oral, Daily, First dose on Thu08/07/23 at 1500 0900 (Given - Provider: Cyndie Cornejo RN) 0925 (Given - Provider: Chad Mendez, ARMANI) 0813 (Given - Provider: Gris Buck, ARMANI) atorvastatin (LIPITOR) tablet 40 mg 40 mg, oral, Daily, First dose on Thu08/07/23 at 1500 0900 (Given - Provider: Cyndie Cornejo RN) 0925 (Given - Provider: Chad Mendez RN) 0813 (Given - Provider: Gris Buck RN) carvediloL (COREG) tablet 12.5 mg 12.5 mg, oral, 2 times daily with meals (bkfst, dinner), First dose on Thu08/08/23 at 1915 204 (Given - Provider: Chau Andrade) 0924 (Given - Provider: Chad Mendez, ARMANI)1733 (Given - Provider: Chad Mendez, ARMANI) 0813 (Given - Provider: Gris Buck, ARMANI)1800 (Due) docusate sodium (COLACE) capsule 100 mg(Linked Group 1) 100 mg, oral, 2 times daily, First dose on Thu08/07/23 at 2100, If able to swallow capsules. Hold for diarrhea., Indications: constipation, Stool Softener 0900 (Given - Provider: Cyndie Cornejo RN)2040 (Not Given - Provider: Chau Andrade - Reason: Patient/family refused) 0925 (Given - Provider: Chad Mendez, ARMANI)2208 (Given - Provider: Chau Andrade) 0753 (Not Given - Provider: Gris Buck RN - Reason: Patient/family refused) fosfomycin (MONUROL) packet 3 g (COMPLETED) 3 g, oral, Once, On Thu08/09/23 at 1230, For 1 dose, Pour contents of packet into 3-4 oz of cool water, stir to dissolve and administer immediately., Indications: Urinary Tract/Genitourinary Infection 181 (Given - Provider: Chad Mendez, RN) heparin 5,000 unit/mL injection 5,000 Units 5,000 Units, subcutaneous, Every 8 hours scheduled, First dose on Thu08/07/23 at 2200, Indications: Deep Vein Thrombosis Prevention 0548 (Given - Provider: Denisa Serna, ARMANI)1500 (Given - Provider: Cyndie Cornejo RN)2041 (Given - Provider: Chau Andrade) 0505 (Given - Provider: Chau Andrade)1446 (Given - Provider: Chad Mendez, ARMANI)2208 (Given - Provider: Chau Andrade) 0626 (Given - Provider: Chau Andrade)1330 (Given - Provider: Gris Buck RN) insulin lispro (HumaLOG, ADMELOG) 100 unit/mL injection 0-5 Units 0-5 Units, subcutaneous, 4 times daily before meals & nightly, First dose (after last modification) on Thu08/07/23 at 1815, Blood glucose mg/dL: 149 or less: No insulin 150-199: add 1 unit 200-249: add 2 units 250-299: add 3 units 300-349: add 4 units and notify physician for adjustment of insulin orders. 350-399: add 5 units and notify physician for adjustment of insulin orders. Over 400: Notify physician for adjustment of insulin orders. Do NOT hold for NPO Status, Indications: Diabetes Mellitus 0900 (Given - Provider: Cyndie Cornejo RN)1200 (Not Given - Provider: Cyndie Cornejo RN - Reason: Order parameters not met - Comment: BG 132)1710 (Given - Provider: Cyndie Cornejo RN)2032 (Not Given - Provider: Chau Andrade - Reason: Order parameters not met) 0740 (Given - Provider: Chad Mendez RN)1154 (Given - Provider: Chad Mendez RN)1719 (Not Given - Provider: Chad Mendez RN - Reason: Order parameters not met)2232 (Given - Provider: Sophie Lee RN) 0812 (Given - Provider: Gris Buck, ARMANI)1204 (Given - Provider: Gris Buck, ARMANI)1730 (Due) levothyroxine (SYNTHROID) tablet 50 mcg 50 mcg, oral, Daily (early AM), First dose on Thu08/08/23 at 0600, Administer on an empty stomach, preferably 30 minutes before breakfast. Take 4 hours apart from antacids, iron and calcium products. Separate from tube feeds, if applicable. 0548 (Given - Provider: Denisa Serna RN) 0501 (Given - Provider: hCau Andrade) 0626 (Given - Provider: Chau Andrade) senna (SENOKOT) tablet 1 tablet(Linked Group 2) 1 tablet, oral, 2 times daily, First dose on Thu08/07/23 at 2100, If able to swallow tablets. Hold for diarrhea., Indications: constipation 0900 (Given - Provider: Cyndie Cornejo RN)2040 (Not Given - Provider: Chau Andrade - Reason: Patient/family refused) 0925 (Given - Provider: Chad Mendez RN)2208 (Given - Provider: Chau Andrade) 0754 (Not Given - Provider: Gris Buck RN - Reason: Patient/family refused) sodium chloride 0.9% flush 0.5-20 mL 0.5-20 mL, intra-catheter, Every 8 hours scheduled, First dose on Thu08/07/23 at 1500, Flush volume based on line type and size. 0549 (Given - Provider: Denisa Serna RN)1400 (Not Given - Provider: Cyndie Cornejo RN - Reason: Other)2044 (Given - Provider: Chau Andrade) 0513 (Given - Provider: Chau Andrade)1446 (Given - Provider: Chad Mendez RN)2217 (Given - Provider: Chau Andrade) 0630 (Given - Provider: Chau Andrade)1330 (Not Given - Provider: Gris Buck RN - Reason: Loss of IV access) PRN Medication Order 08/08/2023 08/09/2023 08/10/2023 acetaminophen (TYLENOL) tablet 650 mg(Linked Group 3) 650 mg, oral, Every 4 hours PRN, 1st line for pain, Starting on Thu08/07/23 at 1423, Administer if patient can swallow tablets., Indications: Pain 0031 (Given - Provider: Denisa Serna RN)1828 (Given - Provider: Gris Buck RN) 1754 (Given - Provider: Chad Mendez RN) Carrier Fluids for Secondary Infusion - 0.9% Sodium Chloride 30 mL, intravenous, As needed, For priming tubing and/or flushing, Starting on Thu08/07/23 at 1422, 0-250 ml/hr to flush line after IV infusions when no maintenance IV ordered. Infuse 30mL at the same rate as the secondary infusion. Run as primary IV, not intended for KVO. dextrose (D10W) 10% bolus 250 mL(Linked Group 4) 250 mL, intravenous, at 1,000 mL/hr, Administer over 15 Minutes, Every 15 min PRN, blood glucose less than 70 mg/dL and UNABLE to swallow/take PO glucose/juice., Starting on Thu08/07/23 at 1720, After treatment for hypoglycemia, recheck BG followed by treatment every 15 minutes until the BG is greater than 100 mg/dL. Then check BG 1 hour post treatment. If BG is less than 100 mg/dL, repeat Q15 minute BG checks and treatment. Call MD for each episode of hypoglycemia., Indications: hypoglycemic disorder dextrose gel in packet 15 g(Linked Group 4) 15 g, oral, Every 15 min PRN, low blood sugar, blood glucose less than 70 mg/dL, Starting on Thu08/07/23 at 1720, If patient is alert and able to [...] unable to take PO glucose/juice., Starting on Thu08/07/23 at 1720, After Glucagon is administered, position patient on [...] 1 mL SWFI. Use immediately following reconstitution. hydrALAZINE (APRESOLINE) injection 10 mg 10 mg, intravenous, Administer over 2 Minutes, Every 15 min PRN, high blood pressure, for BP > 175/100 and HR < 70, Starting on Thu08/07/23 at 1808 labetaloL (NORMODYNE,TRANDATE) injection 10 mg 10 mg, intravenous, at 60 mL/hr, Administer over 2 Minutes, Every 15 min PRN, high blood pressure, BP > 175/100 and HR > 70, Starting on Thu08/07/23 at 1808 0005 (Given - Provider: Denisa Serna, ARMANI) ondansetron (ZOFRAN) injection 4 mg 4 mg, intravenous, Administer over 2 Minutes, Every 6 hours PRN, nausea, vomiting, Starting on Thu08/07/23 at 1415, Proceed to trimethobenzamide if no relief within 30 minutes. , Indications: Nausea and Vomiting ramelteon (ROZEREM) tablet 8 mg 8 mg, oral, Nightly PRN, sleep, Starting on Thu08/09/23 at 2223, Indications: Sleep-Onset Insomnia 2232 (Given - Provider: Sophie Lee, ARMANI) sodium chloride 0.9% flush 0.5-20 mL 0.5-20 mL, intra-catheter, As needed, line care, Starting on Thu08/07/23 at 1422, Flush volume based on line type and size. Flush before and after each use. trimethobenzamide (TIGAN) injection 200 mg 200 mg, intramuscular, Every 6 hours PRN, nausea, vomiting, Starting on Thu08/07/23 at 1415, If not relieved by ondansetron within 30 minutes. , Indications: Nausea and Vomiting Linked Groups Order Group 1: docusate sodium (COLACE) capsule 100 mgJump to med 100 mg, oral, 2 times daily, First dose on Thu08/07/23 at 2100, If able to swallow capsules. Hold for diarrhea., Indications: constipation, Stool Softener Or docusate (COLACE) 10 mg/mL oral liquid 100 mg (CANCELED) 100 mg, feeding tube, 2 times daily, First dose on Thu08/07/23 at 2100, If able to receive medications per tube. Hold for diarrhea., Indications: constipation, Stool Softener, On hold since Thu08/07/2023 at 1427 until manually unheld Group 2: senna (SENOKOT) tablet 1 tabletJump to med 1 tablet, oral, 2 times daily, First dose on Thu08/07/23 at 2100, If able to swallow tablets. Hold for diarrhea., Indications: constipation Or senna 1.76 mg/mL syrup 8.8 mg (CANCELED) 8.8 mg, feeding tube, 2 times daily, First dose on Thu08/07/23 at 2100, If able to receive medications per tube. Hold for diarrhea., Indications: constipation, On hold since Thu08/07/2023 at 1427 until manually unheld Group 3: acetaminophen (TYLENOL) tablet 650 mgJump to med 650 mg, oral, Every 4 hours PRN, 1st line for pain, Starting on Thu08/07/23 at 1423, Administer if patient can swallow tablets., Indications: Pain Or acetaminophen (TYLENOL) 32 mg/mL oral liquid 650 mg (CANCELED) 650 mg, feeding tube, Every 4 hours PRN, 1st line for pain, Starting on Thu08/07/23 at 1423, Administer if patient receiving meds per tube., Indications: Pain Or acetaminophen (TYLENOL) suppository 650 mg (CANCELED) 650 mg, rectal, Every 4 hours PRN, 1st line for pain, Starting on Thu08/07/23 at 1423, Administer if patient cannot tolerate enteral route., Indications: Pain Group 4: dextrose gel in packet 15 gJump to med 15 g, oral, Every 15 min PRN, low blood sugar, blood glucose less than 70 mg/dL, Starting on Thu08/07/23 at 1720, If patient is alert and able to [...] UNABLE to swallow/take PO glucose/juice., Starting on Thu08/07/23 at 1720, After treatment for hypoglycemia, recheck BG followed [...] Count Last Ordered Date First Ordered Date acetaminophen (TYLENOL) 32 m g/mL oral liquid 650 mg 08/07/2023 acetaminophen (TYLENOL) suppository 650 mg 08/07/2023 Carrier Fluids for Secondary Infusion - 0.9% Sodium Chloride 08/07/2023 dextrose (D10W) 10% bolus 250 mL 08/07/19 dextrose gel in packet 15 g 08/07/2023 docusate (COLACE) 10 mg/mL o ral liquid 100 mg 08/07/2023 glucagon injection 1 mg 08/07/2023 hydrALAZINE (APRESOLINE) injection 10 mg 08/07/2023 insulin lispro (HumaLOG, ADM ELOG) 100 unit/mL injection 0-5 Units 2 08/07/2023 ondansetron (ZOFRAN) injection 4 mg 08/06 senna 1.76 mg/mL syrup 8.8 mg 1 08/07/2023 sodium chloride 0.9% flush 0.5-20 mL 1 07/15 trimethobenzamide (TIGAN) injection 200 mg 1 08/07/2023 Lab Orders Without Results Count Last Ordered D ate First Ordered Date POCT GLUCOSE DEVICE 15 08/10/2023 08/07/19 POCT PROTHROMBIN TIME, WHOLE BLOOD 1 2023 Nursing Count Last Ordered Date First Orde red Date TELEMETRY MONITORING 1 08/08/2023 NURSING SWALLOW ASSESSMENT 1 08/07/2023 WEIGH PATIENT 2 08/07/2023 Consult Count Last Ordered Date First Orde red Date IP CONSULT TO NUTRITION SERVICES 1 08/07/19 IP CONSULT TO SPIRITUAL CARE 1 08/07/2023 IV Count Last Ordered Date First Orde red Date SALINE LOCK IV 2 08/07/2023 Admission Count Last Ordered Date First Orde red Date ADMIT TO INPATIENT 1 08/07/2023 Transfer Count Last Ordered Date First Orde red Date TRANSFER PATIENT TO NEW UNIT 2 08/08/2023 08/07/2023 Discharge Count Last Ordered Date First Orde red Date DISCHARGE PATIENT 1 08/10/2023 CORE MEASURES Count Last Ordered Date First Ord ered Date REASON FOR NO VTE PROPHYLAXI S - HOSPITAL ADMISSION - MEDICATIONS 1 08/07/2023 documented in this encounter Care Teams Shellfish Shucker Relationship Specialty Start Date End Date Cuba Larsen MD PCP - General Family Medicine 01/23/22 Chris Mendes MD Referring Physician Cardiology 12/23/21 Keli Orozco, polisher and sander Failure Coordinator Transplant 04/15/23 documented as of this encounter
--- OUTSIDE RECORDS SUMMARY | 2024-03-13 01:09 | XMS_ITS | Encounter Summary ---
Author Organization [facility] Healthcare Address [address] [place] [address] Care Team Providers Care Agent Name Role Phone Chris Mendes MD Unavailable [phone] Cuba Larsen MD Primary Care Provider [phone] Keli Orozco RN Unavailable Unavailable Reason for Visit * Auth/Cert (Routine) Specialty Diagnoses / Procedures Referred By Contac t Referred To Contact Diagnoses Acute ischemic right MCA stroke (HCC) Procedures NA Referral ID Status Reason Start Date Expiration Date Visits Re quested Visits Authorized [id number] 1 1 Encounter Details Date Type Department Care Team (Late st Contact Info) Description 08/07/2023 12:47 PM CDT Anesthesia Event [facility] Neuro Interventional Radiology [address] [place] [address] Yoly Wood MD PhD [address] [place] [address] Anesthesia Record Procedure Summary Procedure Name Responsible Anesthesiologist Anesthesia Start Time Anesthesia Stop Time PERCUTANEOUS ARTERIAL THROMBECTOMY, INTRACRANIAL Yoly Wood MD PhD 08/07/23 1247 08/07/23 1408 Events Date Time Event Comment 08/07/2023 1245 1247 An Start 1250 An Start Data 1256 An Induction The patient was reevaluated immediately before moderate or deep sedation use and before anesthesia induction. 1257 An Intubation 1259 Anesthesia Ready 1347 An Extubation 1407 Handoff to RN I completed my handoff [...] Patient disposition at the time of handoff: ICU 1408 An Stop Meds Name Total succinylcholine 100 mg phenylephrine 100 mcg/mL 400 mcg ondansetron PF (ZOFRAN) 2 mg/mL injectio n 4 mg phenylephrine infusion (100 mcg/mL) 0.98 mg LR 0 mL * Agents Name O2% N2O O2 N2O Air Sevoflurane Inspired Sevoflurane * Blood No blood administrations on file. Lines, Drains, and Airways Type Details Placement Removal Peripheral IV Placement Date: 05/25/21; Placement Time: 2037; Catheter Size: 18 G; Orientation: Right; Location: Antecubital; Site Prep: Alcohol; Inserted by: ARMANI Blevins; Insertion Attempts: 1; Patient Tolerance: Tolerated well; Removal Date: 08/10/23; Removal Time: 1324; Removal Reason: Discharge 05/25/212037 by Lilibeth Jefferson RN 08/10/231323 by Gris Buck RN Peripheral IV Placement Date: 05/25/21; Placement Time: 2109 (created via procedure documentation); Catheter Size: 18 G; Orientation: Left; Location: Hand; Site Prep: Alcohol; Insertion Attempts: 1; Removal Date: 08/07/23; Removal Time: 12305/25/212109 by Patricio White MD 08/07/23 1235 by Sherly Fox RN Peripheral IV Placement Date: 08/07/23; Placement Time: 121; Catheter Size: 18 G; Orientation: Left; Location: Antecubital; Removal Date: 08/07/23; Removal Time: 1235 08/07/23 1211 by Sherly Fox RN 08/07/23 1235 by Sherly Fox RN Peripheral IV Placement Date: 08/07/23; Placement Time: 1224; Catheter Size: 18 G; Orientation: Left; Location: Antecubital; Technique: Anatomical landmarks; Insertion Attempts: 1; Patient Tolerance: Tolerated well; Removal Date: 08/09/23; Removal Reason: Occluded 08/07/23 1224 by Sherly Fox RN 08/09/23 0000 by Chad Mendez, RN RETIRED Surgical Site 08/07/23; 1310; Anterior, Proximal, Right; Thigh; right femoral access; 12/14/23; 1838 08/07/23 1310 by Molly Wynne RN 12/14/23 1838 by Aron Perez, ARMANI ETT Placement Date: 08/07/23; Placement Time: 131 (created via procedure documentation); Mask Ventilation: 0; Technique: Video laryngoscopy; Type: ETT - single; Single Lumen Tube Size: 7 mm; Cuffed: Yes; Laryngoscope: Yaquelin; Blade Size: 3; Location: Oral; Grade View: Grade I; Insertion Attempts: 1; Placement Verification: Auscultation, Capnometry; Removal Date: 08/07/23; Removal Time: 1347 08/07/23 1315 by Yoly Wood MD PhD 08/07/23 1347 by Bushra Waite CRNA documented in this encounter Social History Tobacco Use Types Packs/Day Years Used Date Smoking Tobacco: Never Smokeless Tobacco: Never Alcohol Use Standard Drinks/Week Comments Yes 0 (1 standard drink = 0.6 oz pur e alcohol) 1/mo AUDIT-C Answer Date Recorded Frequency of Alcohol [...] on file Legal Sex Female 4:20 AM [employer] Gender Identity Not on file Sexual Orientation Not on file documented as of this encounter OR Notes * Anesthesia Postprocedure Evaluation - Bushra Waite CRNA - 08/07/2023 2:08 PM CDT Patient: Prema Pearce Procedure Summary Date: 08/07/23 Room / Location: [facility] Interventional Radiology Anesthesia Start: 1247 Anesthesia Stop: 1408 Procedure: PERCUTANEOUS ARTERIAL THROMBECTOMY, INTRACRANIAL Diagnosis: Scheduled Providers: Responsible Provider: Yoly Wood MD PhD Anesthesia Type: general ASA Status: 3 - Emergent Anesthesia Type: /94(111),P87,RR17,[id number] Anesthesia Post Evaluation Patient location during evaluation: ICU Patient participation: waiting for patient participation Level of consciousness: arouses division human resources manager Pain score: unable to evaluate Airway patency: patent Evidence of recall: unable to evaluate Cardiovascular status: hemodynamically stable and blood pressure returned to baseline Respiratory status: face mask Hydration status: euvolemic Pt is: normothermic Nausea/Vomiting status: unable to evaluate Last vitals BP 157/95 Pulse 79 Temp (!) 35.9 ??C (96.6 ??F) (Oral) Resp 17 SpO2 100% Anesthesia Post Evaluation Patient location during evaluation: ICU Patient participation: waiting for patient participation Level of consciousness: arouses division human resources manager Pain score: unable to evaluate Airway patency: patent Evidence of recall: unable to evaluate Cardiovascular status: hemodynamically stable and blood pressure returned to baseline Respiratory status: face mask Hydration status: euvolemic Pt is: normothermic Nausea/Vomiting status: unable to evaluate No notable events documented. Cosigned by Yoly Wood MD PhD at 08/07/2023 2:44 PM CDT * Anesthesia Preprocedure Evaluation - Yoly Wood MD PhD - 08/07/2023 1:18 PM CDT Images from the original note were not included. Anesthesia Evaluation Prema Pearce is a 83 y.o. female CONSULT TO NEURO INTERVENTIONAL RADIOLOGY * No Diagnosis Codes entered * Patient Active Problem List Diagnosis Date Noted Acute ischemic right MCA stroke ([facility]) 08/07/2023 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 ([facility]) ([facility]) 10/11/2021 Essential tremor History of nephrolithiasis 03/21/2021 Pica in adults 08/21/2020 Thyroid nodule 08/21/2020 Recurrent major depressive disorder, in full remission ([facility]) ([facility]) 08/21/2020 AYAD on CPAP 08/21/2020 Chronic combined systolic (congestive) and diastolic (congestive) heart failure ([facility]) 06/05/2019 Gastro-esophageal reflux disease without esophagitis 06/05/2019 WIA (generalized anxiety disorder) 06/05/2019 Hypertensive heart disease with heart failure ([facility]) ([facility]) 06/05/2019 Insomnia, unspecified 06/05/2019 Slow transit constipation 06/05/2019 Acquired hypothyroidism 05/31/2019 Type 2 diabetes mellitus without complications ([facility]) ([facility]) 05/31/2019 Essential hypertension 05/31/2019 Presence of left artificial knee joint 05/25/2019 Paroxysmal atrial fibrillation ([facility]) ([facility]) 08/18/2017 Past Medical History: Diagnosis Date Adrenal nodule ([facility]) Anxiety Aortic stenosis, moderate Atrial fibrillation ([facility]) ([facility]) Cardiomyopathy ([facility]) Diabetes mellitus ([facility]) Dyslipidemia GERD (gastroesophageal reflux disease) Heart murmur HFrEF (heart failure with reduced ejection fraction) ([facility]) ([facility]) Hyperlipidemia Hypertension Hypothyroidism Insomnia Mitral regurgitation NSTEMI (non-ST elevated myocardial infarction) ([facility]) ([facility]) Obesity AYAD on CPAP Patellar sleeve fracture of left knee PONV (postoperative nausea and vomiting) Pulmonary embolism ([facility]) Sleep apnea Stroke ([facility]) Zenker's diverticulum Past Surgical History: Procedure Laterality Date BREAST LUMPECTOMY CHOLECYSTECTOMY HAND SURGERY Left plate & screws HYSTERECTOMY INCISION AND DRAINAGE FEMUR Left 05/22/2019 KIDNEY STONE SURGERY OB History No obstetric history on file. Allergies Allergen Reactions Amlodipine Shortness of breath Prasanth Inhibitors Cough Reaction: COUGH, Citalopram Lisinopril Lisinopril-Hydrochlorothiazide Dizziness and Nausea only Dizzy, nauseated Taking? Last Dose Start Date End Date Provider ALPRAZolam (XANAX) 0.5 mg tablet -- 07/06/23 -- Diane Sheriff PA TAKE 1 TABLET (0.5 MG TOTAL) BY MOUTH 2 (TWO) TIMES A DAY NEEDED FOR ANXIETY. Notes: Not to exceed 5 additional fills before 10/24/2023 blood glucose diagnostic (glucose blood) strip -- 03/19/23 03/18/24 Cuba Larsen MD One strip daily to check glucose blood-glucose meter [facility] -- 03/19/23 -- Cuba Larsen MD Use daily or as directed for monitoring of diabetes. CALCIUM CARBONATE ORAL -- -- -- Cameron Pike MD carvediloL (COREG) 12.5 mg tablet -- 10/24/22 -- Chris Mendes MD Take 1 tablet (12.5 mg total) by mouth 2 (two) times a day with meals Notes: Dose decrease cholecalciferol (VITAMIN D-3) 2000 unit tablet -- -- -- Cameron Pike MD Eliquis 5 mg tablet -- 09/22/22 -- Chris Mendes MD TAKE 1 TABLET BY MOUTH TWICE A DAY furosemide (LASIX) 40 mg tablet -- 07/28/22 -- Chris Mendes MD Take 1 tablet (40 mg total) by mouth as needed (shortness of breath, lower extremity or abdominal swelling, or weight gain of 3 lbs or more in 1 day) Patient not taking: Reported on 07/27/2023 glipiZIDE (GLUCOTROL) 10 mg tablet -- 01/12/23 -- Cuba Larsen MD TAKE 1 TABLET BY MOUTH TWICE A DAY BEFORE BREAKFAST AND LUNCH Patient taking differently: Take 1 tablet (10 mg total) by mouth daily lancets [facility] -- 03/19/23 -- Cuba Larsen MD 1 each by other route daily levothyroxine (SYNTHROID) 50 mcg tablet -- 05/22/23 -- Cuba Larsen MD TAKE 1 TABLET BY MOUTH EVERY DAY losartan (COZAAR) 100 mg tablet -- 06/18/23 -- hCris Mendes MD TAKE 1 TABLET BY MOUTH EVERY DAY metFORMIN (GLUCOPHAGE) 500 mg tablet -- 03/03/23 -- Cuba Larsen MD TAKE 1 TABLET BY MOUTH TWICE A DAY WITH FOOD uacrceog-qwf-lhiu-FA-lutein 8 mg iron-400 mcg-300 mcg tablet -- -- -- Provider, MD Cameron rosuvastatin (CRESTOR) 20 mg tablet -- 06/23/22 -- Chris Mendes MD TAKE 1 TABLET BY MOUTH EVERY DAY spironolactone (ALDACTONE) 25 mg tablet -- 03/19/23 03/18/24 Chris Mendes MD TAKE 1 TABLET (25 MG TOTAL) BY MOUTH DAILY. No current facility-administered medications for this encounter. Current Outpatient Medications: ALPRAZolam (XANAX) 0.5 mg tablet blood glucose diagnostic (glucose blood) strip blood-glucose meter mis CALCIUM CARBONATE ORAL carvediloL (COREG) 12.5 mg tablet cholecalciferol (VITAMIN D-3) 2000 unit tablet Eliquis 5 mg tablet furosemide (LASIX) 40 mg tablet glipiZIDE (GLUCOTROL) 10 mg tablet lancets misc levothyroxine (SYNTHROID) 50 mcg tablet losartan (COZAAR) 100 mg tablet metFORMIN (GLUCOPHAGE) 500 mg tablet fwpblfcv-liv-aody-FA-lutein 8 mg iron-400 mcg-300 mcg tablet rosuvastatin (CRESTOR) 20 mg tablet spironolactone (ALDACTONE) 25 mg tablet Facility-Administered Medications Ordered in Other Encounters: Lactated Ringer's (LR) infusion, , intravenous, Continuous PRN, New Bag at 08/07/23 1250 phenylephrine (LAZARO-SYNEPHRINE) 1 mg/10 mL (100 mcg/mL) in sodium chloride 0.9% (premix), , intravenous, PRN, 100 mcg at 08/07/23 1304 phenylephrine (LAZARO-SYNEPHRINE) 5 mg/50 mL (100 mcg/mL) in sodium chloride 0.9% (premix), , intravenous, Continuous PRN, Stopped at 08/07/23 1314 succinylcholine syringe, , intravenous, PRN, 100 mg at 08/07/23 1256 Social History Tobacco Use Smoking Status Never Smokeless Tobacco Never Alcohol Use: Unknown (05/19/2022) AUDIT-C Frequency of [...] (Added by Conv) Anesthesia problems Neg Hx Vitals: 08/07/23 1216 08/07/23 1230 BP: (!) 151/113 (!) 151/113 Pulse: 81 81 Resp: 20 20 Temp: 36.4 ??C (97.5 ??F) 36.4 ??C (97.5 ??F) SpO2: 97% 97% PT: No results found for requested labs within last 30 days. INR: 08/07/2023: 1.0 APTT: 08/07/2023: 32 sec Hgb A1C: No results found for requested labs within last 30 days. CBC RBC: 08/07/2023: 3.88 M/cumm (L) RDW: No results found for requested labs within last 30 days. MCHC: 08/07/2023: 32.6 g/dL MCH: 08/07/2023: 32.2 pg MCV: 08/07/2023: 98.7 fL (H) Hct: 08/07/2023: 38.3 % Hgb: 08/07/2023: 12.5 g/dL WBC: 08/07/2023: 7.9 K/cumm MPV: 08/07/2023: 10.0 fL Platelets: 08/07/2023: 229 K/cumm RDW CV: 08/07/2023: 13.3 % RDW Sd: 08/07/2023: 48.1 fL BMP Glucose: 08/07/2023: 116 mg/dL Calcium: 08/07/2023: 9.9 mg/dL Sodium: 08/07/2023: 140 mmol/L Potassium: 08/07/2023: 4.4 mmol/L CO2: 08/07/2023: 23 mmol/L Chloride: 08/07/2023: 107 mmol/L BUN: 08/07/2023: 18 mg/dL Creatinine: 08/07/2023: 0.56 mg/dL (L) DOS Physical Exam Attestation: True emergency - No H&P 08/07/2023. Airway Exam: Mallampati: not evaluated Cardiovascular Exam: Rate: tachycardia Rhythm: irregular Current state: Patient's current state is cooperative. Anesthesia Plan ASA 3- emergent My patient is approved for the Anesthesia Controlled Medication protocol when under care of a PRE K SPECIAL EDUCATION TEACHER Planned anesthesia: General Team communication plan: oral ET tube Induction: Induction: intravenous. Postoperative Plan: Patient's planned disposition post procedure is ICU. Informed Consent: Discussed plan with PRE K SPECIAL EDUCATION TEACHER. Anesthesia plan and risks discussed with patient and not discussed. Plan and Consent Comments: No significant medical changes from the documented H&P. Emergent case. Yoly Wood MD PhD Consent and Attending signature: I and/or my designee have discussed the anesthesia plan, benefits, possible alternatives, parental presence at time of induction (if indicated), and clinically relevant risks that may include dental injury, unintentional awareness, and/or other complications. The patient and/or parent/legal guardian understand, and agree to proceed. All questions answered. * Anesthesia Procedure Notes - Yoly Wood MD PhD - 08/07/2023 1:13 PM CDTAssociated Order(s): Airway Airway Patient location: OR Urgency: emergent Indications for airway management: anesthesia Difficult airway: no Staff: Supervising provider: Yoly Wood MD PhD Placed by: MITCHELL: Bushra Waite CRNA Emergent airway documentation: Patient identity confirmed by: [facility], [facility]-assigned identification number and provided demographic data Risks and benefits discussed: yes Consent obtained: yes Consent cannot be obtained due to urgency: yes Airway prep: Preoxygenated: yes Patient position: sniffing MILS maintained throughout: yes Mask difficulty assessment: 0 - not attempted Spontaneous ventilation during airway: absent Sedation level during airway: GA Final airway details: Final airway type: endotracheal airway Tube type: ETT ETT size: 7.0 mm Cuffed: yes Technique used for successful ETT placement: video laryngoscopy Devices/Methods used in placement: stylet Insertion site: oral Blade type: Yaquelin Video blade type: Kenney Blade size: 3 Cormack-Lehane (direct): grade I - full view of glottis Cormack-Lehane (video): grade I - full view of glottis Cuff inflated with: air ETT to lips: 21 cm Placement verified by: auscultation and CO2 detection Airway secured with: silk tape Number of attempts: 1 Planned trial extubation: yes documented in this encounter Plan of Treatment Not on file documented as of this encounter Procedures Procedure Name Priority Date/Time Associated Diagnosis Comments UT AN PROCEDURE PLACEHOLDER Routine 08/07/2023 1:13 PM CDT UT AN EMERGENT ENDOTRACHEAL AIRWAY Routine 08/07/2023 1:13 PM CDT documented in this encounter Results * UT AN EMERGENT ENDOTRACHEAL AIRWAY, UT AN PROCEDURE PLACEHOLDER (08/07/2023 1:13 PM CDT) Narrative Yoly Wood MD PhD - 08/07/2023 1:13 PM CDT Yoly Wood MD PhD ? 08/07/2023 ??1:15 PM Airway Patient location: OR Urgency: emergent Indications for airway management: anesthesia Difficult airway: no Staff: Supervising provider: Yoly Wood MD PhD Placed by: MITCHELL: Bushra Waite CRNA Emergent airway documentation: Patient identity confirmed by: juan houser, [facility]-assigned identification number and provided demographic data Risks and benefits discussed: yes Consent obtained: yes Consent cannot be obtained due to urgency: yes Airway prep: Preoxygenated: yes Patient position: sniffing MILS maintained throughout: yes Mask difficulty assessment: 0 - not attempted Spontaneous ventilation during airway: absent Sedation level during airway: GA Final airway details: Final airway type: endotracheal airway Tube type: ETT ETT size: 7.0 mm Cuffed: yes Technique used for successful ETT placement: video laryngoscopy Devices/Methods used in placement: stylet Insertion site: oral Blade type: Yaquelin Video blade type: Kenney Blade size: 3 Cormack-Lehane (direct): grade I - full view of glottis Cormack-Lehane (video): grade I - full view of glottis Cuff inflated with: air ETT to lips: 21 cm Placement verified by: auscultation and CO2 detection Airway secured with: silk tape Number of attempts: 1 Planned trial extubation: yes us Yoly Wood MD PhD ANESTHESIA ORDERABLES Final Result documented in this encounter Visit Diagnoses Not on filedocumented in this encounter Administered Medications Inactive Administered Medications - up to 3 most recent administrations Medication Order MAR Action Action Date Dose Rate Site Lactated Ringer's (LR) infusion intravenous, Continuous PRN, Starting on Thu08/07/23 at 1250, Anesthesia Intra-op New Bag 08/07/2023 12:50 PM CDT ondansetron (ZOFRAN) injection intravenous, Administer over 2 Minutes, As needed, Starting on Thu08/07/23 at 1339, Anesthesia Intra-op Given 08/07/2023 1:39 PM CDT 4 mg phenylephrine (LAZARO-SYNEPHRINE) 1 mg/10 mL (100 mcg/mL) in sodium chloride 0.9% (premix) intravenous, As needed, Starting on Thu08/07/23 at 1256, Anesthesia Intra-op Given 08/07/2023 1:19 PM CDT 100 mcg Given 08/07/2023 1:04 PM CDT 100 mcg Given 08/07/2023 12:56 PM CDT 200 mcg phenylephrine (LAZARO-SYNEPHRINE) 5 mg/50 mL (100 mcg/mL) in sodium chloride 0.9% (premix) intravenous, Continuous PRN, Starting on Thu08/07/23 at 1304, Anesthesia Intra-op Restarted 08/07/2023 1:33 PM CDT 0.1 mcg/kg/min 5.424 mL/hr Rate/Dose Change 08/07/2023 1:23 PM CDT 0.3 mcg/kg/min 16. 272 mL/hr Restarted 08/07/2023 1:19 PM CDT 0.5 mcg/kg/min 27.12 mL/ hr succinylcholine syringe intravenous, As needed, Starting on Thu08/07/23 at 1256, Anesthesia Intra-op Given 08/07/2023 12:56 PM CDT 100 mg documented in this encounter Orders Medications Ordered That Jon ht Not Have Been Administered Count Last Ordered Date First Ordered Date lidocaine (cardiac) (XYLOCAI NE) preservative free injection 1 08/07/2023 documented in this encounter Care Teams Agent Relationship Specialty Start Date End Date Cuba Larsen MD PCP - General Family Medicine 01/23/22 Chris Mendes MD Referring Physician Cardiology 12/23/21 Keli Orozco, public affairs officer Failure Coordinator Transplant 04/15/23 documented as of this encounter
--- OUTSIDE RECORDS SUMMARY | 2024-03-13 01:09 | XMS_ITS | Encounter Summary ---
Author Organization [facility] Address [address] [place] [address] Care Team Providers Care Newsroom Intern Name Role Phone Chris Mendes MD Unavailable [phone] Keli Orozco RN Unavailable Unavailable Alysa Newton RN Unavailable [phone] Cuba Larsen MD Primary Care Provider [phone] Reason for Visit * Reason Comments Back Pain Ongoing back pain Encounter Details Date Type Department Care Team (Late st Contact Info) Description 10/23/2022 2:15 PM CDT Office Visit [facility] Primary Care at [address] [address] Cuba Larsen MD [address] [address] Acute right-sided thoracic back pain (Primary Dx); Thoracic spondylosis; Thoracogenic scoliosis of thoracic region Social History Tobacco Use Types Packs/Day Years [...] you are drinking? 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 Gender Identity Not on file Sexual Orientation Not on file documented as of this encounter Last Filed Vital Signs Vital Sign Reading Time Taken Comments Blood Pressure 114/60 10/23/2022 2:38 PM CDT Pulse 58 10/23/2022 2:38 PM CDT Temperature 35.7 ??C (96.3 ??F) 10/23/2022 2:38 PM CD T Respiratory Rate 18 10/23/2022 2:38 PM CDT Oxygen Saturation 98% 10/23/2022 2:38 PM CDT Inhaled Oxygen Concentration - - Weight 80.3 kg (177 lb) 10/23/2022 2:38 PM CDT Height 154.9 cm (5' 1 ) 10/23/2022 2:38 PM CDT Body Mass Index 33.44 10/23/2022 2:38 PM CDT documented in this encounter Progress Notes * Cuba Larsen MD - 10/23/2022 2:15 PM CDT Images from the original note were not included. Subjective/Objective Patient ID: Prema Pearce is a 82 y.o. female. Chief Complaint Back Pain (Ongoing back pain) 82-year-old female. Cervical neck pain and thoracic back pain. She did physical therapy on the neck. Did not seem to help at all. Has had x-rays done. She has x-rays as well. Right-sided thoracic pain. Scapular pain. Been hurting month. No recent injury or trauma. Limiting activity. Back Pain Associated symptoms include numbness. Pertinent negatives include no abdominal pain, chest pain, fever or headaches. Current Outpatient Medications Medication Sig Dispense Refill ALPRAZolam (XANAX) 0.5 mg tablet TAKE 1 TABLET (0.5 MG TOTAL) BY MOUTH 2 (TWO) TIMES A DAY NEEDED FOR ANXIETY. 60 tablet 0 CALCIUM CARBONATE ORAL Take 600 mg by mouth 2 (two) times a day carvediloL (COREG) 12.5 mg tablet Take 1 tablet (12.5 mg total) by mouth 2 (two) times a day with meals 180 tablet 3 cholecalciferol (VITAMIN D-3) 50,000 unit capsule Take 1 capsule (50,000 Units total) by mouth oncea week cyclobenzaprine (FLEXERIL) 5 mg tablet Take 1 tablet (5 mg total) by mouth 3 (three) times a day asneeded for muscle spasms 30 tablet 0 dapagliflozin propanediol (FARXIGA) 5 mg tablet Take 1 tablet (5 mg total) by mouth daily 30 tablet5 Eliquis 5 mg tablet TAKE 1 TABLET BY MOUTH TWICE A DAY 60 tablet 11 FLUoxetine (PROzac) 20 mg capsule TAKE 1 CAPSULE BY MOUTH EVERY DAY WITH 40MG CAPSULE 90 capsule 1 levothyroxine (SYNTHROID) 50 mcg tablet TAKE 1 TABLET BY MOUTH EVERY DAY 90 tablet 0 losartan (COZAAR) 100 mg tablet TAKE 1 TABLET BY MOUTH EVERY DAY 90 tablet 3 metFORMIN (GLUCOPHAGE) 500 mg tablet TAKE 1 TABLET BY MOUTH TWICE A DAY WITH MEALS 180 tablet 0 eploybjl-cxp-xpxo-FA-lutein 8 mg iron-400 mcg-300 mcg tablet Take by mouth rosuvastatin (CRESTOR) 20 mg tablet TAKE 1 TABLET BY MOUTH EVERY DAY 90 tablet 3 spironolactone (ALDACTONE) 25 mg tablet TAKE 1 TABLET (25 MG TOTAL) BY MOUTH DAILY. 90 tablet 3 traMADoL (ULTRAM) 50 mg tablet Take 1 tablet (50 mg total) by mouth every 6 (six) hours as needed for pain 30 tablet 0 zolpidem (AMBIEN) 10 mg tablet Take 1 tablet (10 mg total) by mouth nightly as needed for sleep forsleep 90 tablet 0 cranberry extract 200 mg capsule Take by mouth (Patient not taking: Reported on 10/23/2022) furosemide (LASIX) 40 mg tablet Take 1 tablet (40 mg total) by mouth as needed (shortness of breath, lower extremity or abdominal swelling, or weight gain of 3 lbs or more in 1 day) (Patient not taking: Reported on 10/23/2022) 90 tablet 2 glipiZIDE (GLUCOTROL) 10 mg tablet Take 1 tablet (10 mg total) by mouth 2 (two) times a day before breakfast and lunch (Patient not taking: Reported on 10/09/2022) 180 tablet 1 loratadine (CLARITIN) 10 mg tablet Take 1 tablet (10 mg total) by mouth daily as needed for allergies 90 tablet 1 predniSONE (DELTASONE) 20 mg tablet Take 1 tablet (20 mg) by mouth 2 (two) times a day (Patient nottaking: Reported on 08/13/2022) No current facility-administered medications for this visit. Review of Systems Constitutional: Negative for fatigue and fever. Respiratory: Negative for cough and shortness of breath. Cardiovascular: Negative for chest pain and leg swelling. Gastrointestinal: Negative for abdominal pain and nausea. Musculoskeletal: Positive for back pain and neck pain. Neurological: Positive for numbness. Negative for seizures and headaches. Psychiatric/Behavioral: Negative for confusion. The patient is not nervous/anxious. No results found for this or any previous visit (from the past 336 hour(s)). Vitals BP 114/60 (BP Location: Left arm, Patient Position: Sitting) Pulse 58 Temp (!) 35.7 ??C (96.3 ??F) (Temporal) Resp 18 Ht 154.9 cm (5' 1 ) Wt 80.3 kg (177 lb) SpO2 98% BMI 33.44 kg/m?? Physical Exam Constitutional: Appearance: She is [...] place, and time. Psychiatric: Speech: Speech normal. Limited range of motion. Tender on the right. I T3-T4. Skin otherwise normal. 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 Completed physical therapy. Await MRI then go from there in regards to neurosurgery or pain management Cuba Larsen MD Orders Placed This Encounter MRI Thoracic Spine WO Contrast Standing Status: Future Standing Expiration Date: 10/24/2023 Order Specific Question: Is patient claustrophobic? Answer: No Order Specific Question: Is patient able to lie flat for at least one hour? Answer: Yes Order Specific Question: Where should this order be performed? Answer: External Order [171] documented in this encounter Plan of Treatment Not on file documented as of this encounter Visit Diagnoses Diagnosis Acute right-sided thoracic back pain- Primary Thoracic spondylosis Thoracogenic scoliosis of thoracic region documented in this encounter Care Teams Newsroom Intern Relationship Specialty Start Date End Date Cuba Larsen MD [address] [address] PCP - General Family Medicine 01/23/22 Chris Mendes MD Referring Physician Cardiology 12/23/21 Keli Orozco, polisher handOctave Board Assembler Cardiology 12/23/21 04/15/23 Alysa Newton, RN [address] [address] Octave Board Assembler Cardiology 12/23/21 documented as of this encounter
--- OUTSIDE RECORDS SUMMARY | 2024-03-13 01:09 | XMS_ITS | Encounter Summary ---
Author Organization [facility] Address [address] [facility] [address] [place] [address] Care Team Providers Care Distance Learning Unit Leader Name Role Phone Chris Mendes MD Unavailable [phone] Keli Orozco RN Unavailable Unavailable Alysa Newton RN Unavailable [phone] Cuba Larsen MD Primary Care Provider [phone] Reason for Visit * Reason Onset Date Comments ACO Quality Outreach 08/07/2022 Dm lab Encounter Details Date Type Department Care Team ([facility] st Contact Info) Description 08/07/2022 Telephone [facility] Accountable Care Organization [address] [place] [address] Sherrell Schafer [address] [place] [address] ACO Quality Outreach (Dm lab) Social History Tobacco Use Types Packs/Day Years [...] points, staff should administer the PHQ-9) 0 02/13/2022 Comments No Sex and Gender Information Value Date Recorded Sex Assigned at Not on file 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 Chart has been scrubbed and Diabetic labs have been ordered and pended. Ordered labs have been added to appointment note.. Thank you, Sherrell Schafer Patient Quality Filling Winder [facility]- ACO documented in this encounter Plan of Treatment Not on file documented as of this encounter Visit Diagnoses Not on filedocumented in this encounter Care Teams Distance Learning Unit Leader Relationship Specialty Start Date End Date Cuba Larsen MD [address] [place] [address] PCP - General Family Medicine 01/23/22 Chris Mendes MD Referring Physician Cardiology 12/23/21 Keli Orozco, glove wrapperResearch Group Director Cardiology 12/23/21 04/15/23 Alysa Newton, ARMANI [address] [place] [address] Research Group Director Cardiology 12/23/21 documented as of this encounter
--- OUTSIDE RECORDS SUMMARY | 2024-03-13 01:09 | XMS_ITS | Encounter Summary ---
Author Organization [facility] Address [address] [place] [address] Care Team Providers Care Wealth Management Manager Name Role Phone Chris Mendes MD Unavailable [phone] Keli Orozco RN Unavailable Unavailable Alysa Newton RN Unavailable [phone] Cuba Larsen MD Primary Care Provider [phone] Encounter Details Date Type Department Care Team (Late st Contact Info) Description 02/13/2023 Telephone [facility] Family Medicine [address] [place] [phone] Cuba Larsen MD [address] [place] [address] Social History Tobacco Use Types Packs/Day Years Used Date Smoking Tobacco: Never Smokeless Tobacco: Never Alcohol Use Standard Drinks/Week Comments Yes 0 (1 standard drink = 0.6 oz pur e alcohol) 1/ AUDIT-C Answer Date Recorded Frequency of Alcohol [...] on file 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 Gender Identity Not on file Sexual Orientation Not on file documented as of this encounter Miscellaneous Notes * Telephone Encounter - Azucena Velasquez - 02/19/2023 12:26 PM CST Error HAULER documented in this encounter Plan of Treatment Not on file documented as of this encounter Visit Diagnoses Not on filedocumented in this encounter Care Teams Wealth Management Manager Relationship Specialty Start Date End Date Cuba Larsen MD [address] [address] PCP - General Family Medicine 01/23/22 Chris Mendes MD Referring Physician Cardiology 12/23/21 Keli Orozco, technology solutions architectStorekeeper Engineering Cardiology 12/23/21 04/15/23 Alysa Newton, RN [address] [address] Storekeeper Engineering Cardiology 12/23/21 documented as of this encounter
--- OUTSIDE RECORDS SUMMARY | 2024-03-13 01:09 | XMS_ITS | Encounter Summary ---
Author Organization [facility] Address [address] [place] [address] Phone Care Team Providers Care Computer Aided Design Designer Name Role Phone Chris Mendes MD Unavailable Cuba Larsen MD Primary Care Provider [phone] Keli Orozco RN Unavailable Unavailable Encounter Details Date Type Department Care Team (Late st Contact Info) Description 08/07/2023 Telephone [facility] Cardiology [address] [facility] 8th [place] [address] [place] [phone] Chris Mendes MD [address] [facility] [address] [place] [address] Social History Tobacco Use Types Packs/Day Years [...] points, staff should administer the PHQ-9) 0 03/03/2023 Personal Safety Answer Date Recorded Have you ever been in or are you currently in a harmful physical or emotional relationship or is someone making you feel afraid or unsafe? 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 Patient is having a stroke and heading to [facility] via her nephew. Let Dr Mendes know and Dr Wells (on service) * Telephone Encounter - Marj Yousif - 08/07/2023 11:52 AM CDT Cinthya Patient's brother called to report that patient is currently having a stroke and on her way to ER. He would like a return call at [phone] to discuss her condition. documented in this encounter Plan of Treatment Not on file documented as of this encounter Visit Diagnoses Not on filedocumented in this encounter Care Teams Computer Aided Design Designer Relationship Specialty Start Date End Date Cuba Larsen MD PCP - General Family Medicine 01/23/22 Chrsi Mendes MD Referring Physician Cardiology 12/23/21 Keli Orozco, director of community education Failure Coordinator Transplant 04/15/23 documented as of this encounter
--- OUTSIDE RECORDS SUMMARY | 2024-03-13 01:09 | XMS_ITS | Encounter Summary ---
Author Organization [facility] Address [address] [place] [address] Care Team Providers Care Dba Name Role Phone Chris Mendes MD Unavailable Keli Orozco RN Unavailable Unavailable Alysa Newton RN Unavailable [phone] Cuba Larsen MD Primary Care Provider [phone] Reason for Referral * Diagnostic Imaging (Routine) - Closed Specialty Diagnoses / Procedures Referred By Contac t Referred To Contact Diagnoses Acute midline thoracic back pain Procedures XR Spine Thoracic 3 Vw Diane Sheriff PA [facility] [facility] [address] [place] [address] Phone: tel: fax: [address] [address] Referral ID Status Reason Start Date Expiration Date Visits Re quested Visits Authorized [id number] Closed 10/09/2022 11/08/2023 1 1 Reason for Visit * Diagnostic Imaging (Routine) - Closed Specialty Diagnoses / Procedures Referred By Contac t Referred To Contact Diagnoses Acute midline thoracic back pain Procedures XR Spine Thoracic 3 Vw Diane Sheriff PA [address] [facility] [address] [place] [address] Phone: tel: fax: [address] [address] Referral ID Status Reason Start Date Expiration Date Visits Re quested Visits Authorized [id number] Closed 10/09/2022 11/08/2023 1 1 Encounter Details Date Type Department Care Team (Latest Contact Info) Description 10/09/2022 2:05 PM CDT - 10/09/2022 11:59 PM CDT Hospital Encounter [facility] Diagnostic Imaging [address] [place] [address] Acute midline thoracic back pain Discharge Disposition: Discharge to home or self [...] on file 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 60 tablet 08/28/2022 3 carvediloL (COREG) 12.5 mg tablet Take 1 tablet (12.5 mg total) by mouth 2 (two) times a day with meals 180 tablet 3 07/28/2022 3 cholecalciferol (VITAMIN D-3) 50,000 unit capsule Take 1 capsule (50,000 Units total) by mouth once a week 4 cranberry extract 200 mg capsule Take by mouth 02 3 cyclobenzaprine (FLEXERIL) 5 mg tabletIndications :Acute midline thoracic back pain Take 1 tablet (5 mg total) by mouth 3 (three) times a day as needed for muscle spasms 30 tablet 10/09/2022 3 dapagliflozin propanediol (FARXIGA) 5 mg tablet Take 1 tablet (5 mg total) by mouth daily 30 tablet 5 09/22/2022 3 Eliquis 5 mg tablet TAKE 1 TABLET BY MOUTH TWICE A DAY 60 tablet 11 09/22/2022 4 FLUoxetine (PROzac) 20 mg capsuleIndication s:Anxiety TAKE 1 CAPSULE BY MOUTH EVERY DAY WITH 40MG CAPSULE 90 capsule 1 09/15/2022 4 furosemide (LASIX) 40 mg tablet Take 1 tablet (40 mg total) by mouth as needed (shortness of breath, lower extremity or abdominal swelling, or weight gain of 3 lbs or more in 1 day) 90 tablet 2 07/28/2022 4 glipiZIDE (GLUCOTROL) 10 mg tabletIndications :type 2 diabetes mellitus Take 1 tablet (10 mg total) by mouth 2 (two) times a day before breakfast and lunch 180 tablet 1 02/21/2022 3 levothyroxine (SYNTHROID) 50 mcg tablet TAKE 1 TABLET BY MOUTH EVERY DAY 90 tablet 08/04/2022 3 loratadine (CLARITIN) 10 mg tablet Take 1 tablet (10 mg total) by mouth daily as needed for allergies 90 tablet 1 10/21/2021 3 losartan (COZAAR) 100 mg tablet TAKE 1 TABLET BY MOUTH EVERY DAY 90 tablet 3 06/23/2022 4 metFORMIN (GLUCOPHAGE) 500 mg tablet TAKE 1 TABLET BY MOUTH TWICE A DAY WITH MEALS 180 tablet 06/23/2022 3 fxajanxi-ayw-eqez -FA-lutein 8 mg iron-400 mcg-300 mcg tablet Take by mouth 4 predniSONE (DELTASONE) 20 mg tablet Take 1 tablet (20 mg) by mouth 2 (two) times a day 3 rosuvastatin (CRESTOR) 20 mg tablet TAKE 1 TABLET BY MOUTH EVERY DAY 90 tablet 3 06/23/2022 4 spironolactone (ALDACTONE) 25 mg tablet TAKE 1 TABLET (25 MG TOTAL) BY MOUTH DAILY. 90 tablet 3 06/16/2022 4 traMADoL (ULTRAM) 50 mg tabletIndications :Acute midline thoracic back pain Take 1 tablet (50 mg total) by mouth every 6 (six) hours as needed for pain 30 tablet 10/09/2022 4 zolpidem (AMBIEN) 10 mg tablet Take 1 tablet (10 mg total) by mouth nightly as needed for sleep for sleep 90 tablet 10/09/2022 3 documented as of this encounter Discharge Disposition Disposition Code Departure Means Destination Discharge to home or self care documented in this encounter Plan of Treatment Not on file documented as of this encounter Procedures Procedure Name Priority Date/Time Associated Diagnosis Comments XR SPINE THORACIC 3 VIEWS Schedule Routine, Read Routine (OP Routine) 10/09/2022 2:30 PM CDT Acute midline thoracic back pain documented in this encounter Results * XR Spine Thoracic 3 Vw (10/09/2022 2:30 PM CDT) Anatomical Region Laterality Modality Spine N/A Computed Radiogr aphy 10/11/2022 9:50 PM CDT Narrative 10/11/2022 9:58 PM CDT EXAM DESCRIPTION: XR SPINE THORACIC 3 VIEWS REASON FOR STUDY: pain after PT last week, moderately severe, h/o osteoporosis Pain x1 week originating during intense physical therapy. ?? TECHNIQUE: 3 ??radiographic view(s) of the ??thoracic ??spine. COMPARISON: CT 06/09/2019. ??X-ray chest 06/08/2019 FINDINGS: There is preservation of vertebral body height. ??No acute fracture. ?? There is moderate multilevel degenerative endplate change. ??Moderate to severe multilevel disc space narrowing. ??Rgar-fh-htpygapf multilevel facet arthropathy. ??On the frontal view, the marker is misplaced. ??Review of older exams demonstrate that the heart is on the left side as well as on the prior CT from 06/09/2019. ??There is dextroconvex scoliosis of the thoracic spine and levoconvex scoliosis of the thoracolumbar spine. ??Atherosclerotic change thoracic aorta. ??No acute findings of the chest. There is fairly moderate 2 severe multilevel spondylosis of the cervical spine as seen on the swimmer's view. IMPRESSION: No acute fracture. Moderate spondylosis thoracic spine. Moderate to severe spondylosis cervical spine. S-shaped scoliosis of the thoracolumbar spine. THIS IS AN ELECTRONICALLY VERIFIED FINAL REPORT 10/11/2022 9:58 PM - Electronically signed by ??Frank WHITE D: ??10/11/2022 9:58 PM T: Report ID: [id number] Reading Location: ??[id number] Procedure Note Frank Minaya MD - 10/11/2022 EXAM DESCRIPTION: XR SPINE THORACIC 3 VIEWS REASON FOR STUDY: pain after PT last week, moderately severe, h/oosteoporosis Pain x1 week originating during intense physical therapy. TECHNIQUE: 3 radiographic view(s) of the thoracic spine. COMPARISON: CT 06/09/2019. X-ray chest 06/08/2019 FINDINGS: There is preservation of vertebral body height. No acutefracture. There is moderate multilevel degenerative endplate change. Moderate tosevere multilevel disc space narrowing. Orps-zw-rqmfkmif multilevel facet arthropathy. On the frontal view, the marker is misplaced. Review ofolder exams demonstrate that the heart is on the left side as well as on theprior CT from 06/09/2019. There is dextroconvex scoliosis of the thoracic spineand levoconvex scoliosis of the thoracolumbar spine. Atherosclerotic change thoracic aorta. No acute findings of the chest. There is fairly moderate 2 severe multilevel spondylosis of the cervicalspine as seen on the swimmer's view. IMPRESSION: No acute fracture. Moderate spondylosis thoracic spine. Moderate to severe spondylosis cervical spine. S-shaped scoliosis of the thoracolumbar spine. THIS IS AN ELECTRONICALLY VERIFIED FINAL REPORT 10/11/2022 9:58 PM - Electronically signed by Frank WHITE T: Report ID: [id number] Reading Location: [id number] Diane Marquis IMG XR PROCEDURES Final Result documented in this encounter Visit Diagnoses Diagnosis Acute midline thoracic back pain documented in this encounter Care Teams Dba Relationship Specialty Start Date End Date Cuba Larsen MD [address] [facility] [address] [place] [address] PCP - General Family Medicine 01/23/22 Chris Mendes MD Referring Physician Cardiology 12/23/21 Keli Orozco, milk inspectorHeating And Air Conditioning Mechanic Cardiology 12/23/21 04/15/23 Alysa Newton, RN [address] [facility] [address] [place] [address] Heating And Air Conditioning Mechanic Cardiology 12/23/21 documented as of this encounter
--- OUTSIDE RECORDS SUMMARY | 2024-03-13 01:09 | XMS_ITS | Encounter Summary ---
Author Organization [facility] Address [address] [place] [address] Phone Care Team Providers Care Regional Recruiter Name Role Phone Chris Sanchez MD Unavailable [phone] Keli Orozco RN Unavailable Unavailable Alysa Newton RN Unavailable [phone] Cuba Larsen MD Primary Care Provider [phone] Reason for Referral * Cardiology (Routine) - Closed Specialty Diagnoses / Procedures Referred By Indra t Referred To Contact Diagnoses Chronic combined systolic (congestive) and diastolic (congestive) heart failure (HCC) Procedures Transthoracic Echo (TTE) Complete W Doppler/CF Chris Sanchez MD Phone: tel: fax: [address] [address] Referral ID Status Reason Start Date Expiration Date Visits Re quested Visits Authorized [id number] Closed 02/03/2023 03/04/2024 1 1 ERING OVEN OPERATOR Reason for Visit * Consultation (Routine) - Closed Specialty Diagnoses / Procedures Referred By Contac t Referred To Contact Cardiology Diagnoses Mitral valve prolapse Cuba Larsen MD [address] [place] [address] Phone: tel: fax: Chris Sanchez MD [address] [facility] [address] [place] [address] Phone: tel: fax: Referral ID Status Reason Start Date Expiration Date V isits Requested Visits Authorized [id number] Closed Specialty Services Required 01/23/2023 01/25/2024 12 12 Encounter Details Date Type Department Care Team (Late st Contact Info) Description 02/03/2023 1:20 PM TEMPERING OVEN OPERATOR Office Visit [facility] Cardiology [address] [facility] Medicine 8th [place] [address] [place] [address] Chris Sanchez MD [address] [id number] Chronic combined systolic (congestive) and diastolic (congestive) heart failure (HCC) (Primary Dx); Mitral valve prolapse Social History Tobacco Use Types Packs/Day Years [...] on file Legal Sex Female 4:20 AM TEMPERING OVEN OPERATOR Gender Identity Not on file Sexual Orientation Not on file documented as of this encounter Last Filed Vital Signs Vital Sign Reading Time Taken Comments Blood Pressure 118/81 02/03/2023 1:16 PM TEMPERING OVEN OPERATOR Pulse 79 02/03/2023 1:16 PM TEMPERING OVEN OPERATOR Temperature - - Respiratory Rate - - Oxygen Saturation 97% 02/03/2023 1:16 PM TEMPERING OVEN OPERATOR Inhaled Oxygen Concentration - - Weight 83 kg (183 lb) 02/03/2023 1:16 PM TEMPERING OVEN OPERATOR Height 154.9 cm (5' 1 ) 02/03/2023 1:16 PM TEMPERING OVEN OPERATOR Body Mass Index 34.58 02/03/2023 1:16 PM TEMPERING OVEN OPERATOR documented in this encounter Patient Instructions * Patient Instructions* Keli Orozco RN - 02/03/2023 1:20 PM TEMPERING OVEN OPERATOR Our office number is [phone]. Alysa and Keli are the nurses. No medication changes Return back in 6 months for follow up and echo ERING OVEN OPERATOR ERING OVEN OPERATOR documented in this encounter Progress Notes * Ned Urbina MD - 02/03/2023 1:20 PM CST Images from the original note were not included. Department of Medicine Chris Sanchez M.D. Cardiovascular Division Professor, [facility] Director, Heart Failure Program RETURN OFFICE VISIT NOTE Date of Visit: 02/03/23 Name: Prema Pearce : 1940 Medical Record: [id number] Correspondence: Cuba Larsen MD DIAGNOSES Persistent atrial fibrillation DCCV and sotalol intiation ~ 2009, discontinued 12/2018 Treated with rate control until submassive pulmonary emboli in 05/2019, amiodarone initiated Amiodarone discontinued 06/2019 due GI side effects CVA 2021 due to being off of anticoagulation for elective procedure Nonischemic cardiomyopathy Concern for tachy-mediated No significant coronary disease on C 08/2020 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 60% ostial stenosis of 1st diagonal branch. Minimal luminal irregularities in LAD. Large OM1 and OM2. RCA non dominant with minor luminal irregularities. Significant tortuosity of all vessels. Submassive pulmonary embolism 05/2019, provoked Occurred 1 week after left distal femoral replacement for an open fracture Right lower extremity DVT 05/2019 Hypertension Diabetes mellitus type II, insulin dependent Obstructive sleep apnea, on CPAP Hypothyroidism Left adrenal nodule Reason for visit: followup of cardiomyopathy Dear Cuba Larsen MD: It was my pleasure to see Prema Pearce today at the [facility] for follow-up of her systolic heart failure with recovered ejection fraction as well as the above noted conditions. She is accompanied by her son today. She is a 82 y.o. year old White female who we last saw in the office July 28. Since that time she has not been hospitalized or required other acute care. She has been doing well and for the most part has been visiting with family and friends. She has experienced occasional episodes of lightheadedness and unsteadiness when standing from a laying position, but she recognizes this and takes her time moving. She denies falls and loss of consciousness. She is able to grocery shop without cardiovascular symptoms or limitations. She otherwise denies orthopnea, paroxysmal nocturnal dyspnea, peripheral edema, chest pain, syncope, near syncope, and palpitations. She takes her medications as prescri bed. She has only needed to use her Lasix twice in the last month. ROS: Review of systems per HPI and, otherwise all other systems are negative CURRENT MEDICATIONS: Current Outpatient Medications: ALPRAZolam (XANAX) 0.5 mg tablet, TAKE 1 TABLET (0.5 MG TOTAL) BY MOUTH 2 (TWO) TIMES A DAY NEEDED FOR ANXIETY., Disp: 60 tablet, Rfl: 0 CALCIUM CARBONATE ORAL, Take 600 mg by mouth 2 (two) times a day , Disp: , Rfl: carvediloL (COREG) 12.5 mg tablet, Take 1 tablet (12.5 mg total) by mouth 2 (two) times a day with meals, Disp: 180 tablet, Rfl: 3 cholecalciferol (VITAMIN D-3) 50,000 unit capsule, Take 1 capsule (50,000 Units total) by mouth once a week, Disp: , Rfl: Eliquis 5 mg tablet, TAKE 1 TABLET BY MOUTH TWICE A DAY, Disp: 60 tablet, Rfl: 11 FLUoxetine (PROzac) 20 mg capsule, TAKE 1 CAPSULE BY MOUTH EVERY DAY WITH 40MG CAPSULE, Disp: 90 capsule, Rfl: 1 glipiZIDE (GLUCOTROL) 10 mg tablet, TAKE 1 TABLET BY MOUTH TWICE A DAY BEFORE BREAKFAST AND LUNCH, Disp: 180 tablet, Rfl: 1 levothyroxine (SYNTHROID) 50 mcg tablet, Take 1 tablet (50 mcg total) by mouth daily, Disp: 90 tablet, Rfl: 0 losartan (COZAAR) 100 mg tablet, TAKE 1 TABLET BY MOUTH EVERY DAY, Disp: 90 tablet, Rfl: 3 metFORMIN (GLUCOPHAGE) 500 mg tablet, TAKE 1 TABLET BY MOUTH TWICE A DAY WITH MEALS, Disp: 180 tablet, Rfl: 0 eyglultv-aya-xgyc-FA-lutein 8 mg iron-400 mcg-300 mcg tablet, Take by mouth, Disp: , Rfl: rosuvastatin (CRESTOR) 20 mg tablet, TAKE 1 TABLET BY MOUTH EVERY DAY, Disp: 90 tablet, Rfl: 3 spironolactone (ALDACTONE) 25 mg tablet, TAKE 1 TABLET (25 MG TOTAL) BY MOUTH DAILY., Disp: 90 tablet, Rfl: 3 traMADoL (ULTRAM) 50 mg tablet, Take 1 tablet (50 mg total) by mouth every 6 (six) hours as needed for pain, Disp: 30 tablet, Rfl: 0 cyclobenzaprine (FLEXERIL) 5 mg tablet, Take 1 tablet (5 mg total) by mouth 3 (three) times a day as needed for muscle spasms, Disp: 30 tablet, Rfl: 0 furosemide (LASIX) 40 mg tablet, Take 1 tablet (40 mg total) by mouth as needed (shortness of breath, lower extremity or abdominal swelling, or weight gain of 3 lbs or more in 1 day) (Patient not taking: Reported on 10/23/2022), Disp: 90 tablet, Rfl: 2 loratadine (CLARITIN) 10 mg tablet, Take 1 tablet (10 mg total) by mouth daily as needed for allergies, Disp: 90 tablet, Rfl: 1 ALLERGIES: Allergies Allergen Reactions Amlodipine Shortness of breath Prasanth Inhibitors Cough Reaction: COUGH, Citalopram Lisinopril Lisinopril-Hydrochlorothiazide Dizziness and Nausea only Dizzy, nauseated PHYSICAL EXAM: Vitals: 02/03/23 1316 BP: 118/81 BP Location: Left arm Patient Position: Sitting Pulse: 79 SpO2: 97% Weight: 83 kg (183 lb) Body mass index is 34.58 kg/m??. Wt Readings from Last 3 Encounters: 02/03/23 83 kg (183 lb) 10/23/22 80.3 kg (177 lb) 10/09/22 80.6 kg (177 lb 12.8 oz) General Appearance: No distress, Well developed Head/eyes/nose/throat: Normocephalic, without obvious abnormality, conjunctiva/corneas clear, sclera anicteric. Mucus membranes moist. Neck: No enlargement/tenderness/nodules; good carotid upstroke, no carotid bruit. JVD not elevated Lungs: Clear to auscultation bilaterally, respirations unlabored, No crackles wheezes or rhonchi. Normal excursion Cardiovascular: Regular rate and rhythm, S1 and S2 normal, II/ early systolic murmur heard best at the base, No gallop, no rub pulses 2+ and symmetric. Abdomen: Soft, non-tender, bowel sounds active all four quadrants, no masses, no organomegaly, non-distended Extremities: Extremities normal, no cyanosis. Warm/well perfused. No edema Skin: Skin color, texture, turgor normal, no rashes or bruising. Neurologic: Alert & oriented x 4. Grossly normal strength. Psychosocial: Normal affect and mood ADDITIONAL DIAGNOSTIC DATA: Chemistry Component Value Date/Time SODIUM 138 07/22/2022 0918 POTASSIUM 4.6 07/22/2022 0918 CHLORIDE 106 07/22/2022 0918 CO2 24 07/22/2022 0918 BUNSER 20 07/22/2022 0918 CREATININE 0.72 07/22/2022 0918 CREATININE 0.40 (A) 06/02/2021 0000 GLUCOSE 95 07/22/2022 0918 Component Value Date/Time CALCIUM 9.9 07/22/2022 0918 ALKPHOS 82 07/22/2022 0918 AST 17 07/22/2022 0918 ALT 16 07/22/2022 0918 BILITOT 0.7 07/22/2022 0918 Lab Results Component Value Date WBC 7.8 07/22/2022 HGB 12.6 07/22/2022 HCT 37.7 07/22/2022 MCV 97.2 07/22/2022 LABPLAT 251 07/22/2022 Lab Results Component Value Date ALT 16 07/22/2022 AST 17 07/22/2022 ALKPHOS 82 07/22/2022 BILITOT 0.7 07/22/2022 Lab Results Component Value Date NPROBNP 6,714 (H) 06/08/2019 NPROBNP 7,985 (H) 05/29/2019 Lab Results Component Value Date HGBA1C 6.3 (H) 07/22/2022 HGBA1C 6.1 (H) 10/28/2021 HGBA1C 6.2 (H) 05/25/2021 Lab Results Component Value Date CHOL 92 07/22/2022 CHOL 92 10/28/2021 CHOL 73 05/25/2021 Lab Results Component Value Date HDL 37 (L) 07/22/2022 HDL 39 (L) 10/28/2021 HDL 37 (L) 05/25/2021 Lab Results Component Value Date LDLCALC 15 05/25/2021 LDLCALC 17 06/08/2019 LDLCALC 29 05/31/2019 LDL 35 07/22/2022 LDL 34 10/28/2021 LDL 45 08/20/2020 Lab Results Component Value Date TRIG 116 07/22/2022 TRIG 105 10/28/2021 TRIG 104 05/25/2021 CARDIOGRAPHICS: Echo 07/28/22 prior to clinic visit - It was reviewed and interpreted with Dr. Sanchez. It was notable for slow Afib, normal LV size withlow normal systolic function (LVEF 52%), decreased LV strain pattern, normal RV size and function, marked bi-atrial enlargement, indeterminate diastolic function with evidence of elevated filling pressures, calcified aortic valve with moderate aortic stenosis (HOLLI 0.8 cm2, mean gradient 12 mmHg, peak 20 mmHg, DI 19/54), moderate mitral annulus calcification with mild MR, mild TR, mild PI, mildly dilated IVC, PASP estimated at 35 mmHg, and normal aorta. Compared to the previous from 08/31/20, there are no significant changes. ASSESSMENT AND PLAN: Prema Pearce is a 82 y.o. female with nonischemic cardiomyopathy, CHF with recovered LVEF, persistent Afib and moderate who presents today for follow up. Today she is endorsing NYHA Class IIsymptoms. #. Nonischemic Cardiomyopathy #. 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 She is AHA/ACC stage C. She is able to complete light housework and grocery shopping without limitations. She deniessymptoms of volume overload. -she is hemodynamically stable and euvolemic on examination, current weight is 183 lbs -her last Echo (07/28/22) is notable for normal LV size with low normal systolic function (LVEF 52%), decreased LV strain pattern, normal RV size and function, and indeterminate diastolic function. -she remains active at this time with minimal symptoms. She continues to have recovered function onher echo. We will therefore continue optimally tolerated GDMT as outlined below: -Beta kimberley: carvedilol 12.5 mg BID -RAAS/ARNI/Afterload: losartan 100 mg daily -MRA: spironolactone 25 mg daily -SGLT2: deferred at this time given recovered LVEF -Preload/diuresis: she is euvolemic. She will continue PRN Lasix 40 mg for weight gain of 3 lbs in one day or 5 lbs in 2 days, swelling and worsening dyspnea. -Device therapies: none -Other HF medications: none -Advanced therapies: not indicated at this time given her recovered ejection fraction. #. Moderate aortic stenosis -she remains active around her home with no symptoms concerning for progression of her stenosis. -her echo (07/28/22) is mostly unchanged from her previous with HOLLI 0.8 cm2, mean gradient 12 mmHg, peak 20 mmHg, DI 19/54) -we will continue to monitor her symptoms and will repeat an echocardiogram in 6 months before her next visit. -she has been counseled on the warning signs of progressive aortic stenosis including chest discomfort, worsening dyspnea and fatigue, as well as syncopal episodes. #. Persistent Atrial fibrillation -she is irregular on examination today. -she will continue carvedilol 12.5 mg BID. -she will continue anticoagulation with Eliquis 5 mg BID for her high stroke risk ([id number]: 6). #. Mild coronary artery disease #. Dyslipidemia -she had mild luminal irregularities and a 60% ostial diagonal lesion on her last left heart catheterization. -she is currently chest discomfort free and without anginal symptoms. -she will continue risk factor reduction with rosuvastatin 20 mg daily. #. Essential hypertension -her blood pressure today was 118/81 mmHg -we will continue her current medical regimen as outlined above RTC in 6 months with echocardiogram ORDERS THIS ENCOUNTER: Orders Placed This Encounter Procedures Transthoracic Echo (TTE) Complete W Doppler/CF Standing Status: Future Standing Expiration Date: 02/04/2024 Order Specific Question: Please select the performing department: Answer: [facility] [[id number]] Order Specific Question: Contrast Default Option Answer: Use Perflutren contrast if 2 of 16 LV wall segments in any view not visualized, using the volume necessary to obtain adequate images. Order Specific Question: Contrast Default Option Answer: An IVAD (Implanted Venous Access Device) may be accessed for contrast administration by following the Facility's policy for IVAD access. Order Specific Question: Strain Rate Imaging Answer: Study will include Strain Rate Imaging for improved image quality and measurement details unless denied by ordering MD Sincerely, Ned Urbina MD Fellow - Advanced Heart Failure and Transplant Cardiology 02/03/23 3:33 PM Cosigned by Chris Sanchez MD at 02/03/2023 11:44 PM TEMPERING OVEN OPERATOR ERING OVEN OPERATOR ERING OVEN OPERATOR Associated attestation - Chris Sanchez MD - 02/03/2023 11:44 PM TEMPERING OVEN OPERATOR I have seen and examined the patient. I agree with the findings and plan of care as documented in the resident/fellow's note. My total encounter time on 02/03/2023 was 30 minutes which was spent in the activities documented in the note. This includes time spent prior to the visit and after the visit in direct care of the patient. This time does not include time spent in any separately reportable services. documented in this encounter Plan of Treatment Not on file documented as of this encounter Results * TRANSTHORACIC ECHO (TTE) COMPLETE W DOPPLER/CF W CONTRAST (07/27/2023 2:04 PM CDT) LV EF 66 % CARDIOREPORT Anatomical Region Laterality Modality Ultrasound 07/27/2023 1:00 PM CDT Narrative 07/27/2023 2:43 PM CDT Patient name: Prema Pearce Date of test: 07/27/2023 Type of test: TTE w/Doppler Hospital #: 0 Date of : 1940 (F) Cardiac Nurse Practitioner: Jayla Wilson RDCS Referring Physician: CHRIS SANCHEZ MD Contrast Agent: 1.1 ml Optison Administered, (1.9 ml wasted). Contrast Administered by: Miguel Harris RN Supervised/Interpreted by: Viktor Cabrales MD Diagnosis: Location: [facility] Reason for test: Chronic CHF MV Structure: Normal, ?MV Motion: Normal, ?? Mitral Annulus: moderately calcified AV Structure: tricuspid and is moderately thickened, ?? AV Motion: Normal Aotic root: Normal, ?TM: Normal, ?? PV: Normal Valvular Vegetations: none seen, ?Mass/Thrombi: none seen RA: Normal Measurements: ?M-Mode ?Normal ? Aotic Root: ? <3.8 ? LA: ? <3.8 ? RV: ? <2.8 ? LV(ED): ? <5.7 ? LV(ES): ? Variable ?2D Linear Normal ? Aotic Root: 2.9 cm ?<3.6 ? Ao Indexed: 1.6 cm/M2 <2.0 ? LA: ? <3.8 ? RV: ? 3.5 cm ?<4.2 ? LV(ED): ? 5.0 cm ?<5.3 ? LV(ES): ? 3.5 cm ?<3.5 ?2D Vol. ?? Normal ?Indexed ?? Indexed Normal RA: ? 44.0 ml ? 24.1 ml/M2 ?9-33 ? LA: ? 146.0 ml ?79.9 ml/M2 ?16-34 ? RV: ? <11.6 ? LV(ED): ? 86.0 ml ?? 46-106 ?47.1 ml/M2 ?<62 ? LV(ES): ? 29.0 ml ?? 14-42 ? 15.9 ml/M2 ?<25 ?3D Vol. ? Indexed Normal LV(ED): ?<62 ? LV(ES): ?<24 ? LV EF: 66 % ?? (Normal: >=54%) ?? LV Septum: 1.0 cm ?(Normal: <0.9 cm) Wall Motion Scoring (1=Normal 2=Hypo 3=Akinetic 4=Dyskin./Aneurysm 0=Not visualized) Parasternal Long [place]:MAS=1 BAS=1 MIL=1 NIGHAT=1 Parasternal Short [place]:MAS=1 MIS=1 OH=1 MIL=1 MAL=1 MA=1 Apical 4 Chambers:=1 MIS=1 BIS=1 BAL=1 MAL=1 AL=1 AC=1 Apical 2 Chambers:AI=1 OH=1 BI=1 BA=1 MA=1 AA=1 AC=1 LV Global Longitudinal Strain: -11.5% ??(Normal <-17%) RV Global Longitudinal Strain: -15.1% ??(Normal <-17%) LV Function: Normal LV Ejection Fraction, ??(EF=54-74%) RV Function: Low Normal Septal Motion: Normal Pericardial Effusion: none seen Atrial Septum: Normal DOPPLER/COLOR FLOW DOPPLER RESULTS: Diastolic Function: indeterminate Tricuspid Valve: normal TV Pulmonic Valve: normal PV AV Regurgitation: No AR seen AV Stenosis: moderate AV Area: ??cm2 AV Pressure Gradient (mmHg): Mean: 13, Peak:22 MV Regurgitation: Mild MR MV Stenosis: no MS MV Area: ??cm2 MV Pressure Gradient (mmHg): Mean: 3 MV ERO: ??cm Regurg. Vol.: ??ml/beat Regurg. Frac.: ??% PA Pressure: 39+RA mmHg DOPPLER/COLOR FOLOW DOPPLER COMMENTS: No AR seen, Mild MR, moderate , no MS, normal TV, normal PV. Diastolic function: indeterminate CONTRAST: 1.1 ml Optison Administered, (1.9 ml wasted). SUMMARY: Rhythm is in AFib. LV cavity size is normal with normal systolic function. LVEF 66%. ??Normal LV wall thickness/mass. ??LA is markedly dilated. Normal RV cavity size with low normal function. Moderately calcified aortic valve with moderate LGLF . ??Markedly calcified MAC with no HD significant MS. Mild MR. ??Estimated PA systolic pressure 39+RA(5) mmHg. Reduced global LV myocardial longitudinal function and strain pattern. ??Normal Inferior vena cava. Normal aorta. No significant changes noted. Confirmed on ??07/27/2023 - 14:43:28 by Viktor Cabrales MD By signing this report, the attending crucible packer certifies that he or she has personally supervised and interpreted the echocardiogram and has reviewed and or edited and agrees with the written comments contained within the report. Procedure Note Viktor Lauren MD - 07/27/2023 Patient name: Prema Pearce Date of test: 07/27/2023 Type of test: TTE w/Doppler [facility] #: 0 Date of : 1940 (F) Cardiac Nurse Practitioner: Jayla Wilson [facility] Referring Physician: CHRIS SANCHEZ MD Contrast Agent: 1.1 ml Optison Administered, (1.9 ml wasted). Contrast Administered by: Miguel Harris RN Supervised/Interpreted by: Viktor Cabrales MD Diagnosis: Location: [facility] Reason for test: Chronic CHF MV Structure: Normal, MV Motion: Normal, Mitral Annulus: moderately calcified AV Structure: tricuspid and is moderately thickened, AV Motion: Normal Aotic root: Normal, TM: Normal, PV: Normal Valvular Vegetations: none seen, Mass/Thrombi: none seen RA: Normal Measurements: M-Mode Normal Aotic Root: <3.8 LA: <3.8 RV: <2.8 LV(ED): <5.7 LV(ES): Variable 2D Linear Normal Aotic Root: 2.9 cm <3.6 Ao Indexed: 1.6 cm/M2 <2.0 LA: <3.8 RV: 3.5 cm <4.2 LV(ED): 5.0 cm <5.3 LV(ES): 3.5 cm <3.5 2D Vol. Normal Indexed Indexed Normal RA: 44.0 ml 24.1 ml/M2 9-33 LA: 146.0 ml 79.9 ml/M2 16-34 RV: <11.6 LV(ED): 86.0 ml 46-106 47.1 ml/M2 <62 LV(ES): 29.0 ml 14-42 15.9 ml/M2 <25 3D Vol. Indexed Normal LV(ED): <62 LV(ES): <24 LV EF: 66 % (Normal: >=54%) LV Septum: 1.0 cm (Normal: <0.9 cm) Wall Motion Scoring (1=Normal 2=Hypo 3=Akinetic 4=Dyskin./Aneurysm 0=Not visualized) Parasternal Long [place]:MAS=1 BAS=1 MIL=1 NIGHAT=1 Parasternal Short [place]:MAS=1 MIS=1 OH=1 MIL=1 MAL=1 MA=1 Apical 4 Chambers:=1 MIS=1 BIS=1 BAL=1 MAL=1 AL=1 AC=1 Apical 2 Chambers:AI=1 OH=1 BI=1 BA=1 MA=1 AA=1 AC=1 LV Global Longitudinal Strain: -11.5% (Normal <-17%) RV Global Longitudinal Strain: -15.1% (Normal <-17%) LV Function: Normal LV Ejection Fraction, (EF=54-74%) RV Function: Low Normal Septal Motion: Normal Pericardial Effusion: none seen Atrial Septum: Normal DOPPLER/COLOR FLOW DOPPLER RESULTS: Diastolic Function: indeterminate Tricuspid Valve: normal TV Pulmonic Valve: normal PV AV Regurgitation: No AR seen AV Stenosis: moderate AV Area: cm2 AV Pressure Gradient (mmHg): Mean: 13, Peak:22 MV Regurgitation: Mild MR MV Stenosis: no MS MV Area: cm2 MV Pressure Gradient (mmHg): Mean: 3 MV ERO: cm Regurg. Vol.: ml/beat Regurg. Frac.: % PA Pressure: 39+RA mmHg DOPPLER/COLOR FOLOW DOPPLER COMMENTS: No AR seen, Mild MR, moderate , no MS, normal TV, normal PV. Diastolic function: indeterminate CONTRAST: 1.1 ml Optison Administered, (1.9 ml wasted). SUMMARY: Rhythm is in AFib. LV cavity [...] cava. Normal aorta. No significant changes noted. Confirmed on 07/27/2023 - 14:43:28 by Viktor Cabrales MD By signing this report, the attending crucible packer certifies that he or she has personally supervised and interpreted the echocardiogram and has reviewed and or edited and agrees with the written comments contained within the report. us Chris Sanchez MD CV ECHO PROCEDURES Final Re sult documented in this encounter Visit Diagnoses Diagnosis Chronic combined systolic (congestive) and diastolic (congestive) heart failure (HCC)- Primary Mitral valve prolapse Mitral valve disorders Chronic combined systolic (congestive) and diastolic (congestive) heart failure (HCC) documented in this encounter Discontinued Medications Medication Sig Discontinue Reason Start Date End Da te cranberry extract 200 mg capsule Take by mouth Therapy completed 02/03/2023 predniSONE (DELTASONE) 20 mg tablet Take 1 tablet (20 mg) by mouth 2 (two) times a day Therapy completed 02/03/2023 zolpidem (AMBIEN) 10 mg tablet Take 1 tablet (10 mg total) by mouth nightly as needed for sleep for sleep Discontinued by another clinician 10/09/2022 02/03/2023 documented as of this encounter Orders Outpatient Referral Count Last Ordered Date Fir st Ordered Date AMB REFERRAL TO CARDIOLOGY 1 02/03/2023 documented in this encounter Care Teams Regional Recruiter Relationship Specialty Start Date End Date Cuba Larsen MD [address] [facility] [address] [place] [address] PCP - General Family Medicine 01/23/22 Chris Sanchez MD Referring Physician Cardiology 12/23/21 Klei Orozco, customer care voice consultantNecktie Operator [employer] Pie[employer] Cardiology 12/23/21 04/15/23 Alysa Newton, RN [address] [facility] [address] [place] [address] Necktie Operator [employer] And [employer] Cardiology 12/23/21 documented as of this encounter
--- OUTSIDE RECORDS SUMMARY | 2024-03-13 01:09 | XMS_ITS | Encounter Summary ---
Author Organization [facility] Address [address] [facility] [address] [place] [address] Care Team Providers Care Gaming Pit Boss Name Role Phone Chris Mendes MD Unavailable [phone] Keli Orozco RN Unavailable Unavailable Alysa Newton RN Unavailable Cuba Larsen MD Primary Care Provider [phone] Reason for Visit * Reason Onset Date Comments ACO Quality Outreach 08/07/2022 Dm lab Encounter Details Date Type Department Care Team ([facility] st Contact Info) Description 08/07/2022 Telephone [facility] Accountable Care Organization [address] [place] [id number] Sherrell Schafer [address] [place] [id number] ACO Quality Outreach (Dm lab) Social History [...] on file 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 Chart has been scrubbed and Diabetic labs have been ordered and pended. Ordered labs have been added to appointment note. Thank you, Sherrell Schafer Patient Quality Sampling Expert [facility]- [facility] documented in this encounter Plan of Treatment Not on file documented as of this encounter Visit Diagnoses Not on filedocumented in this encounter Care Teams Gaming Pit Boss Relationship Specialty Start Date End Date Cuba Larsen MD [address] [address] PCP - General Family Medicine 01/23/22 Chris Mendes MD Referring Physician Cardiology 12/23/21 Keli Orozco, research scholarContaminated Land Consultant Cardiology 12/23/21 04/15/23 Alysa Newton, ARMANI [address] [address] Contaminated Land Consultant Cardiology 12/23/21 documented as of this encounter
--- OUTSIDE RECORDS SUMMARY | 2024-03-13 01:09 | XMS_ITS | Encounter Summary ---
Author Organization [facility] Address [address] [address] Care Team Providers Care Chair Lift Operator Name Role Phone Chris Mendes MD Unavailable [phone] Keli Orozco RN Unavailable Unavailable Alysa Newton RN Unavailable [phone] Cuba Larsen MD Primary Care Provider [phone] Encounter Details Date Type Department Care Team (Latest Contact Info) Description 08/13/2022 1:30 PM CDT Ancillary Procedure [facility] Imaging at [address] [id number] Cervical neck pain with evidence of disc disease Social History Tobacco Use Types Packs/Day Years [...] on file 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 Gender Identity Not on file Sexual Orientation Not on file documented as of this encounter Plan of Treatment Not on file documented as of this encounter Procedures Procedure Name Priority Date/Time Associated Diagnosis Comments XR SPINE CERVICAL 2 OR 3 VIEWS Schedule Routine, Read Routine (OP Routine) 08/13/2022 1:25 PM CDT Cervical neck pain with evidence of disc disease documented in this encounter Results * XR Spine Cervical 2 or 3 Views (08/13/2022 1:25 PM CDT) Anatomical Region Laterality Modality Spine N/A Digital Radiogra phy 08/14/2022 6:44 AM CDT Narrative 08/14/2022 6:47 AM CDT EXAM DESCRIPTION: XR SPINE CERVICAL 2 OR 3 VIEWS REASON FOR STUDY: pain ?? Tingling in rt forearm x 3 mo, no trauma or surgery ? FINDINGS: Two views submitted with comparison 05/21/2019. There are no fractures. ??There is no prevertebral soft tissue swelling. ??There is degenerative retrolisthesis of C3-C6. ??There is mild anterolisthesis of C2 on C3 and C7 on T1. ??There is moderate to severe C3-C7 degenerative disc disease. ?? C7-T1 facet osteoarthritis is present. 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 ??Carotid atherosclerosis is present. IMPRESSION: Moderate to severe C3-C7 degenerative disc disease with multilevel cervical facet and uncovertebral osteoarthritis. THIS IS AN ELECTRONICALLY VERIFIED FINAL REPORT 08/14/2022 6:47 AM - Electronically signed by ??Frank Freguson M.D. D: ??08/14/2022 6:46 AM T: Report ID: [id number] Reading Location: ??[id number] Procedure Note Frank Ferguson MD - 08/14/2022 EXAM DESCRIPTION: XR SPINE CERVICAL 2 OR 3 VIEWS REASON FOR STUDY: pain Tingling in rt forearm x 3 mo, no trauma or surgery FINDINGS: Two views submitted with comparison 05/21/2019. There are no fractures. There is no prevertebral soft tissue swelling.There is degenerative retrolisthesis of C3-C6. There is mild anterolisthesis ofC2 on C3 and C7 on T1. There is moderate to severe C3-C7 degenerative disc disease. C7-T1 facet osteoarthritis is present. 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 Carotid atherosclerosis is present. IMPRESSION: Moderate to severe C3-C7 degenerative disc disease with multilevelcervical facet and uncovertebral osteoarthritis. THIS IS AN ELECTRONICALLY VERIFIED FINAL REPORT 08/14/2022 6:47 AM - Electronically signed by Frank Ferguson M.D. T: Report ID: [id number] Reading Location: [place] [address] Cuba Larsen MD IMG XR PROCEDURES Final Resul t documented in this encounter Visit Diagnoses Diagnosis Cervical neck pain with evidence of disc disease Other and unspecified disc disorder of cervical region documented in this encounter Care Teams Chair Lift Operator Relationship Specialty Start Date End Date Cuba Larsen MD [address] [address] PCP - General Family Medicine 01/23/22 Chris Mendes MD Referring Physician Cardiology 12/23/21 Keli Orozco, buttonholerResource Director Cardiology 12/23/21 04/15/23 Alysa Newton, RN [address] [address] Resource Director Cardiology 12/23/21 documented as of this encounter
--- OUTSIDE RECORDS SUMMARY | 2024-03-13 01:09 | XMS_ITS | Encounter Summary ---
Author Organization [facility] Address [address] [place] [address] Care Team Providers Care Tone Artist Apprentice Name Role Phone Chris Mendes MD Unavailable [phone] Keli Orozco RN Unavailable Unavailable Alysa Newton RN Unavailable [phone] Cuba Larsen MD Primary Care Provider [phone] Reason for Visit * Reason Onset Date Comments Medical Question/Miscellaneous 02/16/2023 Encounter Details Date Type Department Care Team (Late st Contact Info) Description 02/16/2023 Nurse Triage [facility] Family Medicine [address] [place] [id number] Cuba Larsen MD [address] [place] [id number] Social History Tobacco Use Types Packs/Day Years Used Date Smoking Tobacco: Never Smokeless Tobacco: Never Alcohol Use Standard Drinks/Week Comments Yes 0 (1 standard drink = 0.6 oz pur e alcohol) / AUDIT-C Answer Date Recorded Frequency of Alcohol [...] on file 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 She has appt here 02/26. BOAT ENGINEER * Telephone Encounter - Leandra Jean - 02/20/2023 12:10 PM CST Call Back Caller???s Concern: Patient is calling stating that she took another test and she tested positive again. She didn't know what she should do. She didn't know if it was safe to go out. She said that she would like to speak with a nurse to follow up Does message need to be routed? Yes-Action Needed BOAT ENGINEER * Telephone Encounter - Raymond Saha RN - 02/18/2023 11:00 AM FIRE BOAT ENGINEER Patient reports she is doing better. Hasn't had fever for 2 days, has occasional cough. Mostly c/o fatigue. Recommended fluids, rest, mucinex. If any SOB or chest pain, worsening of symptoms go to ER. BOAT ENGINEER * Telephone Encounter - Leandra Winters RN - 02/16/2023 1:09 PM CST Left Vm to call back BOAT ENGINEER * Telephone Encounter - Toshia Somers RN - 02/16/2023 11:35 AM FIRE BOAT ENGINEER No call has been made by entry level software developer. entry level software developer at capacity- routing to clinical team to address. Reason for Disposition Nursing judgment Protocols used: No Protocol [id number] BOAT ENGINEER * Telephone Encounter - Toshia Somers RN - 02/16/2023 11:35 AM FIRE BOAT ENGINEER Regarding: Positive for Covid ----- Message from Karina Mcclure sent at 02/16/2023 9:31 AM FIRE BOAT ENGINEER ----- Symptom Based Call Chief Complaint(s): Positive for Covid Duration: Thursday What type of symptom(s) is the patient experiencing? Non-Emergent. Is this a new or reoccurring symptom(s)? new What have you tried to help your symptom(s)? Head cold, did have fever Why was appointment not scheduled? Requesting advice from clinical valve steamer. Additional Comments: did take tylenol Does message need to be routed? Yes-Action Needed BOAT ENGINEER documented in this encounter Plan of Treatment Not on file documented as of this encounter Visit Diagnoses Not on filedocumented in this encounter Care Teams Tone Artist Apprentice Relationship Specialty Start Date End Date Cuba Larsen MD [address] [facility] [address] [place] [address] PCP - General Family Medicine 01/23/22 Chris Mendes MD Referring Physician Cardiology 12/23/21 Keli Orozco, admiralty lawyerBarber Cardiology 12/23/21 04/15/23 Alysa Newton, RN [address] [facility] [address] [place] [address] Barber Cardiology 12/23/21 documented as of this encounter
--- OUTSIDE RECORDS SUMMARY | 2024-03-13 01:09 | XMS_ITS | Encounter Summary ---
Author Organization [facility] Healthcare Address [address] [place] [address] Care Team Providers Care County Sheriff Name Role Phone Chris Mendes MD Unavailable [phone] Keli Orozco RN Unavailable Unavailable Alysa Newton RN Unavailable [phone] Cuba Larsen MD Primary Care Provider [phone] Keli Orozco RN Unavailable Unavailable Keli Orozco RN Unavailable Unavailable Reason for Visit * Reason Comments Essence Enhanced Encounter Encounter Details Date Type Department Care Team (Late Contact Info) Description 03/03/2023 1:30 PM PRODUCT SAFETY LEAD Office Visit [facility] Medical [facility] Family Medicine [address] [place] [phone] Cuba Larsen MD [address] [place] [id number] Other general medical examination for administrative purposes (Primary Dx); Type 2 diabetes mellitus without complication, without long-term current use of insulin (CMS/HCC) (HCC); Paroxysmal atrial fibrillation (CMS/HCC) (HCC); Acquired hypothyroidism; Essential hypertension; Gastro-esophageal reflux disease without esophagitis; Chronic combined systolic (congestive) and diastolic (congestive) heart failure (HCC); 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 (CMS/HCC) (HCC); WAI (generalized anxiety disorder); Essential tremor; AYAD on CPAP; Renal stone; Need for vaccination; Recurrent major depressive disorder, in full remission (CMS/HCC) (HCC); Thyroid nodule Social History Tobacco Use Types Packs/Day Years [...] 0 03/03/2023 Personal Safety Answer Date Recorded Getting School Help Needed Not on file 02/24 Comments No Sex and Gender Information Value Date Recorded Sex Assigned at Not on file Legal Sex Female 4:20 AM PRODUCT SAFETY LEAD Gender Identity Not on file Sexual Orientation Not on file documented as of this encounter Last Filed Vital Signs Vital Sign Reading Time Taken Comments Blood Pressure 118/86 03/03/2023 1:31 PM PRODUCT SAFETY LEAD Pulse 85 03/03/2023 1:31 PM PRODUCT SAFETY LEAD Temperature 36.1 ??C (97 ??F) 03/03/2023 1:31 PM PRODUCT SAFETY LEAD Respiratory Rate - - Oxygen Saturation 97% 03/03/2023 1:31 PM PRODUCT SAFETY LEAD Inhaled Oxygen Concentration - - Weight 84.5 kg (186 lb 3.2 oz) 03/03/2023 1:31 P M PRODUCT SAFETY LEAD Height 154.9 cm (5' 1 ) 03/03/2023 1:31 PM PRODUCT SAFETY LEAD Body Mass Index 35.18 03/03/2023 1:31 PM PRODUCT SAFETY LEAD documented in this encounter Progress Notes * Ida Lara RN - 03/03/2023 1:30 PM CST Error UCT SAFETY LEAD * Cuba Larsen MD - 03/03/2023 1:30 PM CST Images from the original note were not included. Essence Evaluation Patient Name: Prema Pearce Date Of : 1940 Date Of Service: @DATEOFSERVICE@ Basic Information In general, would you say your health is: Good Do you have an advance directive, such as a living will or durable power of [place] attorney?: Yes Do you have to strain or struggle to hear/understand conversations?: No Have you experienced any of the following problems currently or recently? Eating: No Grooming: No Bathing: No Walking: No Using the toilet: No Memory problems: No Difficulty speaking: No Dressing: No Balance: No Pain: No Sexual Health: No Fatigue: (!) Yes Have you experienced any of the following problems currently or recently? Laundry and/or housekeeping: No Handling money: No Shopping: No Using the Phone: No Food preparation: No Transportation: No Taking and/or getting your own medications: No Do you use prescription drugs that are not prescribed for you?: No Do you struggle with any of the following: depression, stress, anger, loneliness or social isolation?: No Safety Do you have a working smoke detector in your home?: Yes Does your home have throw rugs, poor lighting, or a slippery bath tub/shower?: No Do you always fasten your seatbelt when you are in a vehicle?: Yes What is your typical mode of transportation: Car Physical Activity How many days a week do you usually exercise?: 0 - I do not exercise How intense is your typical exercise?: I am currently not exercising Nutrition How would you rate your appetite?: Excellent How would you describe the condition of your mouth and teeth/dentures?: Good On a typical day, how many servings of fruits and vegetables do you eat?: 2 On a typical day, how many servings of high fiber/whole-grain foods do you eat?: 2 On a typical day, how many servings of high fat/fried foods do you eat?: 0 HPI: Essence visit ROS Review of Systems Constitutional: Positive for malaise/fatigue. Negative for chills and fever. Eyes: Negative for blurred vision and double vision. Respiratory: Negative for cough and shortness of breath. Cardiovascular: Negative for chest pain and leg swelling. Gastrointestinal: Negative for nausea and vomiting. Genitourinary: Negative for frequency and urgency. Musculoskeletal: Negative for back pain and joint pain. Neurological: Negative for weakness and headaches. Psychiatric/Behavioral: Negative for depression. The patient is not nervous/anxious. 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 Thyroid nodule Recurrent major depressive disorder, in full remission (CMS/HCC) ([facility]) AYAD on CPAP History of nephrolithiasis 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 ([facility]) ([facility]) Essential tremor Past Medical History: Diagnosis Date Adrenal nodule ([facility]) Anxiety Aortic stenosis, moderate Atrial fibrillation (CMS/HCC) (HCC) Cardiomyopathy (HCC) Diabetes mellitus (HCC) Dyslipidemia GERD (gastroesophageal reflux disease) Heart murmur HFrEF (heart failure with reduced ejection fraction) ([facility]/HCC) ([facility]) Hyperlipidemia Hypertension Hypothyroidism Insomnia Mitral regurgitation NSTEMI (non-ST elevated myocardial infarction) ([facility]/HCC) ([facility]) Obesity AYAD on CPAP Patellar sleeve fracture of left knee PONV (postoperative nausea and vomiting) Pulmonary embolism ([facility]) Sleep apnea Stroke ([facility]) Zenker's diverticulum Past Surgical History: Procedure Laterality [...] Frequency of Binge Drinking: Not on file Allergies: Allergies Allergen Reactions Amlodipine Shortness of breath Prasanth Inhibitors Cough Reaction: COUGH, Citalopram Lisinopril Lisinopril-Hydrochlorothiazide Dizziness and Nausea only Dizzy, nauseated Medications: Current Outpatient Medications: CALCIUM CARBONATE ORAL, Take 600 mg by [...] A DAY, Disp: 60 tablet, Rfl: 11 glipiZIDE (GLUCOTROL) 10 mg tablet, TAKE 1 TABLET BY MOUTH TWICE A DAY BEFORE BREAKFAST AND LUNCH (Patient taking differently: Take 1 tablet (10 mg total) by mouth daily), Disp: 180 tablet, Rfl: 1 metFORMIN (GLUCOPHAGE) 500 mg tablet, TAKE 1 TABLET BY MOUTH TWICE A DAY WITH FOOD, Disp: 180 tablet, Rfl: 1 vytslrkn-tvf-guqs-FA-lutein 8 mg iron-400 mcg-300 mcg tablet, Take by mouth, Disp: , Rfl: rosuvastatin (CRESTOR) 20 mg tablet, TAKE 1 TABLET BY MOUTH EVERY DAY, Disp: 90 tablet, Rfl: 3 ALPRAZolam (XANAX) 0.5 mg tablet, TAKE 1 TABLET (0.5 MG TOTAL) BY MOUTH 2 (TWO) TIMES A DAY NEEDED FOR ANXIETY., Disp: 60 tablet, Rfl: 0 blood glucose diagnostic (glucose blood) strip, One strip daily to check glucose, Disp: 100 each, Rfl: 1 blood-glucose meter [facility] [place], Use daily or as directed for monitoring of diabetes., Disp: 1 each, Rfl: 0 FLUoxetine (PROzac) 20 mg capsule, Take 1 capsule (20 mg total) by mouth daily TAKE 1 CAPSULE BY MOUTH EVERY DAY, Disp: 90 capsule, Rfl: 0 furosemide (LASIX) 40 mg tablet, Take 1 tablet (40 mg total) by mouth as needed (shortness of breath, lower extremity or abdominal swelling, or weight gain of 3 lbs or more in 1 day) (Patient not taking: Reported on 10/23/2022), Disp: 90 tablet, Rfl: 2 lancets misc, 1 each by other route daily, Disp: 100 each, Rfl: 1 levothyroxine (SYNTHROID) 50 mcg tablet, TAKE 1 TABLET BY MOUTH EVERY DAY, Disp: 90 tablet, Rfl: 0 losartan (COZAAR) 100 mg tablet, TAKE 1 TABLET BY MOUTH EVERY DAY, Disp: 90 tablet, Rfl: 3 spironolactone (ALDACTONE) 25 mg tablet, TAKE 1 TABLET (25 MG TOTAL) BY MOUTH DAILY., Disp: 90 tablet, Rfl: 3 traMADoL (ULTRAM) 50 mg tablet, Take 1 tablet (50 mg total) by mouth every 6 (six) hours as needed for pain (Patient not taking: Reported on 03/03/2023), Disp: 30 tablet, Rfl: 0 Depression Screen: PHQ Screening Over the past 2 weeks, how often have you been bothered by any of the following problems? Little Interest or Pleasure in Doing Things: Not at all Feeling Down, Depressed, or Hopeless: Not at all PHQ-2 Total Score (If total score is 3 or more points, staff should administer the PHQ-9): 0 Vitals: Vitals BP 118/86 (BP Location: Right arm, Patient Position: Sitting) Pulse 85 Temp 36.1 ??C (97 ??F) (Temporal) Ht 154.9 cm (5' 1 ) Wt 84.5 kg (186 lb 3.2 oz) SpO2 97% BMI 35.18 kg/m?? Body mass index is 35.18 kg/m??. Hearing and Vision Screening: Age related hearing changes, sees [email or web address] Exam: Physical Exam Constitutional: Appearance: She is well-developed. Cardiovascular: Rate and Rhythm: Normal rate. Rhythm irregular. Heart sounds: Normal heart sounds. Pulmonary: Effort: Pulmonary effort is normal. Breath sounds: Normal breath sounds. Abdominal: General: Bowel sounds are normal. Palpations: Abdomen is soft. Feet: Right Foot: Monofilament exam: normal. Protective Sensation: 5 sites tested. Left Foot: Monofilament exam: normal. Protective Sensation: 5 sites tested. Skin: General: Skin is warm and dry. Neurological: Mental Status: She is alert and oriented to person, place, and time. Psychiatric: Speech: Speech normal. Care Team Providers: Patient Care Team: Cuba Larsen MD as PCP - General (Family Medicine) Chris Mendes MD as Referring Physician (Cardiology) Keli Orozco, RN as Heart Failure Coordinator (Transplant) Primary Pharmacy/DME suppliers: [id number] [id number] [facility] [id number] [place] [id number] Detection of Cognitive Impairment: The patient does not have cognitive impairment based on direct observation, discussion with patientor family, or review of medical records. Health Maintenance: Health Maintenance Topics with due status: Overdue Topic Date Due Osteoporosis Screening-Bone Density Scan Never done Varicella Vaccines Never done Hepatitis B Screening Never done Covid-19 Vaccine 11/14/2022 Health Maintenance Topics with due status: Postponed Topic Postponed Until Zoster Vaccine 10/24/2023 (Originally 1991) Health Maintenance Topics with due status: Not Due Topic Last Completion Date DTaP/Tdap/Td Vaccine 05/21/2019 Dilated Eye Exam 12/10/2022 Albumin Creatinine Ratio, Urine 02/23/2023 Lipid Panel 02/23/2023 Hemoglobin A1C 02/23/2023 eGFR 02/23/2023 Fall Risk Assessment 03/03/2023 Depression Screening-PHQ 03/03/2023 Well Visit 65+ 03/03/2023 Foot Exam 03/03/2023 Health Maintenance Topics with due status: Completed Topic Last Completion Date Influenza Vaccine 12/06/2022 Pneumococcal vaccine 65+ 03/03/2023 Counseling and Referral of Preventative Services: Lifestyle Recommendations Increase Physical Activity, Reduce Weight, and Improve Diet Advanced Directive Durable Power of Mine Captain: Discussed Today Living Will: Discussed Today Assessment and Plan: Diagnoses and all orders for this visit: Other general medical examination for administrative purposes (Primary) - completed Type 2 diabetes mellitus without complication, without long-term current use of insulin ([facility]) ([facility]) - A1c is 5.9 She does see the eye doctor. No peripheral neuropathy. We are going to stop the glipizide continue metformin , Farxiga was not covered under insurance Paroxysmal atrial fibrillation (CMS/[facility]) ([facility]) - on Eliquis. Sees Cardiology Acquired hypothyroidism - TSH normal may continue present management Essential hypertension - continue meds blood pressure controlled Gastro-esophageal reflux disease without esophagitis - currently stable Chronic combined systolic (congestive) and diastolic (congestive) heart failure (HCC) - ejection fraction 52%. Seeing Cardiology 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 (CMS/[facility]) ([facility]) - stable WAI (generalized anxiety disorder)/insomnia - currently stable Renal stones. - Sees Urology Essential tremor - currently stable Patient does not have any obstructive coronary lesions cardiac catheterization 2020 She takes benzodiazepines at 3 times per week. No dependence Stable major depressive disorder Positive AYAD- has CPAP at home Had a thyroid nodule x2. Did see ENT. Biopsies were negative. No further follow- up was discussed Patient here for annual Medicare wellness visit and for review of complete medical problem list. All the elements of the plan were completed as outlined by [facility]. A copy of the prevention plan was given to the patient. I reviewed Medicare Wellness Questionnaire (other physicians involved in care, depression screen, advanced directives), cognitive/memory, and functional assessment. I reviewed and updated the complete problem list, medication list, family history, and immunization records with the patient. I provided preventive counseling and early detection interventions to the patient through summary of today's office visit. Cuba Larsen MD Orders Placed This Encounter Pneumococcal conjugate vaccine 20-valent IM (Prevnar-20) CBC with auto differential Standing Status: Future Number of Occurrences: 1 Standing Expiration Date: 03/03/2024 Comprehensive metabolic panel Standing Status: Future Number of Occurrences: 1 Standing Expiration Date: 03/03/2024 Lipid panel Standing Status: Future Number of Occurrences: 1 Standing Expiration Date: 03/03/2024 Order Specific Question: Has the patient been fasting for 8 hours or more? Answer: Yes TSH reflex to free T4 Standing Status: Future Number of Occurrences: 1 Standing Expiration Date: 03/03/2024 Hemoglobin A1c Standing Status: Future Number of Occurrences: 1 Standing Expiration Date: 03/03/2024 documented in this encounter Miscellaneous Notes * Addendum Note - Shaylee Garcia Ma, JOSE - 03/03/2023 1:30 PM CSTAddended by: SHAYLEE GARCIA on: 03/03/2023 02:36 PM Modules accepted: Orders UCT SAFETY LEAD documented in this encounter Plan of Treatment Scheduled Orders Name Type Priority Associated Diagnoses Orde r Schedule CBC with auto differential Lab Routine Essential hypertension Expected: 07/15/2023, Expires: 03/03/2024 Comprehensive metabolic panel Lab Routine Type 2 diabetes mellitus without complication, without long-term current use of insulin ([facility]) ([facility]) Essential hypertension Expected: 07/15/2023, Expires: 03/03/2024 Lipid panel Lab Routine Essential hypertension Expected: 07/15/2023, Expires: 03/03/2024 TSH reflex to free T4 Lab Routine Acquired hypothyroidism Expected: 07/15/2023, Expires: 03/03/2024 Hemoglobin A1c Lab Routine Type 2 diabetes mellitus without complication, without long-term current use of insulin (CMS/HCC) (HCC) Expected: 07/15/2023, Expires: 03/03/2024 documented as of this encounter Visit Diagnoses Diagnosis Other general medical examination for administrative purposes- Primary Type 2 diabetes mellitus without complication, without long-term current use of insulin (CMS/HCC) (HCC) Paroxysmal atrial fibrillation (CMS/HCC) (HCC) Atrial fibrillation Acquired hypothyroidism Unspecified hypothyroidism Essential hypertension Unspecified essential hypertension Gastro-esophageal reflux disease without esophagitis Chronic combined systolic (congestive) and diastolic (congestive) heart failure (HCC) 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 (CMS/HCC) (HCC) WAI (generalized anxiety disorder) Generalized anxiety disorder Essential tremor AYAD on CPAP Renal stone Calculus of kidney Need for vaccination Need for prophylactic vaccination and inoculation against unspecified single disease Recurrent major depressive disorder, in full remission (CMS/HCC) (HCC) Thyroid nodule Nontoxic uninodular goiter documented in this encounter Discontinued Medications Medication Sig Discontinue Reason Start Date End Da te loratadine (CLARITIN) 10 mg tablet Take 1 tablet (10 mg total) by mouth daily as needed for allergies Therapy completed 10/21/2021 03/03/2023 cyclobenzaprine (FLEXERIL) 5 mg tabletIndications:Acute midline thoracic back pain Take 1 tablet (5 mg total) by mouth 3 (three) times a day as needed for muscle spasms Therapy completed 10/09/2022 03/03/2023 documented as of this encounter Orders Immunization/Injection Count Last Ordered Date First Ordered Date PNEUMOCOCCAL CONJUGATE VACCI NE 20 VALENT IM 1 03/03/2023 documented in this encounter Care Teams County Sheriff Relationship Specialty Start Date End Date Cuba Larsen MD [address] [facility] [address] [place] [address] PCP - General Family Medicine 01/23/22 Chris Mendes MD Referring Physician Cardiology 12/23/21 Keli Orozco, pillow cleanerDry Wall Applicator Cardiology 12/23/21 04/15/23 Alysa Newton, RN [address] [facility] [address] [place] [address] Dry Wall Applicator Cardiology 12/23/21 Keli Orozco, road driver Failure Coordinator 04/02/23 4 Keli Orozco, road driver Failure Coordinator Transplant 04/15/23 documented as of this encounter
--- OUTSIDE RECORDS SUMMARY | 2024-03-13 01:09 | XMS_ITS | Encounter Summary ---
Author Organization [facility] Healthcare Address [address] [place] [address] Care Team Providers Care Algologist Name Role Phone Chris Mendes MD Unavailable [phone] Keli Orozco RN Unavailable Unavailable Alysa Newton RN Unavailable [phone] Cuba Larsen MD Primary Care Provider [phone] Reason for Visit * Reason Onset Date Comments Referral Request 12/30/2022 Encounter Details Date Type Department Care Team (Late st Contact Info) Description 12/30/2022 Telephone [facility] Medical [facility] Family Medicine [address] [place] [phone] Cuba Larsen MD [address] [place] [phone] Referral Request Social History Tobacco Use [...] on file Legal Sex Female 4:20 AM DISPATCH CLERK Gender Identity Not on file Sexual Orientation Not on file documented as of this encounter Miscellaneous Notes * Telephone Encounter - Dolores Keys - 01/01/2023 7:13 AM CDT Order created. Referral will be worked in the order it was received. * Telephone Encounter - Leandra Jean - 12/31/2022 1:10 PM CDT Call Back Caller???s Concern:Patient is calling back to office to inform Dolores the name of the provider she will be seeing for her referral. Dr. Jorge Medina is the name of the provider and the Fax number to the office is: [phone] Caller???s Call back #: [phone]. Does message need to be routed? Yes-Action Needed * Telephone Encounter - Dolores Keys - 12/31/2022 12:27 PM CDT Called and left detailed message. In order to obtain insurance authorization I will need to know first/last name of the dentist patient is seeing. * Telephone Encounter - Cuba Larsen MD - 12/30/2022 6:16 PM CDT ok * Telephone Encounter - Palma Carrasquillo - 12/30/2022 12:46 PM CDT Referral Provider Name (if patient is seeing a nurse practitioner or physician engineer third assistant, list the WHOLESALE PARTS SALESPERSON/PA, but also their collaborating doctor): Ilana Tavera Specialty: Dentistry Address: [address] [place] [address] [address] [facility], Zip: [place] [address] Diagnosis Code/Symptom/Reason Patient is being seen: Routine exam and cleaning Date of Appointment: 01/05/23 NPI#: [id number] Tax ID#: [id number] Is insurance in chart up to date? Yes Caller???s Callback #: [phone] Additional Comments: Patient stated [facility]ence told her she needs to get a referral from her PCP for this appointment. Patient stated she is not having any procedures done just a routine exam and cleaning. Does message need to be routed? Yes-Action Needed documented in this encounter Plan of Treatment Not on file documented as of this encounter Visit Diagnoses Diagnosis Encounter for routine dental examination- Primary Encounter for well woman exam with routine gynecological exam documented in this encounter Care Teams Algologist Relationship Specialty Start Date End Date Cuba Larsen MD [address] [facility] [address] [id number] PCP - General Family Medicine 01/23/22 Chris Mendes MD Referring Physician Cardiology 12/23/21 Keli Orozco, engineering directorGang Saw Operator Cardiology 12/23/21 04/15/23 Alysa Newton, ARMANI [address] [id number] Gang Saw Operator Cardiology 12/23/21 documented as of this encounter
--- OUTSIDE RECORDS SUMMARY | 2024-03-13 01:09 | XMS_ITS | Encounter Summary ---
Author Organization [facility] Healthcare Address [address] [place] [address] Care Team Providers Care Assembly Riveter Name Role Phone Chris Sanchez MD Unavailable [phone] Keli Orozco RN Unavailable Unavailable Alysa Newton RN Unavailable [phone] Cuba Larsen MD Primary Care Provider [phone] Reason for Referral * Consultation (Routine) - Closed Specialty Diagnoses / Procedures Referred By Indra muñoz Referred To Contact Cardiology Diagnoses Mitral valve prolapse Cuba Larsen MD [address] [address] Phone: tel: fax: Chris Sanchez MD [address] [address] Phone: tel: fax: Referral ID Status Reason Start Date Expiration Date V isits Requested Visits Authorized [id number] Closed Specialty Services Required 01/23/2023 01/25/2024 12 12 Question Answer Please select the performing region: [facility] (All Locations) [167] Is this referral for the Valve Clinic? No To provider: CHRIS SANCHEZ [[id number]] # of visits: 12 Comments Appt 02/03/23 LIANDEER LOOPER Encounter Details Date Type Department Care Team (Late st Contact Info) Description 01/23/2023 Orders Only [facility] Medical Group Family Medicine [address] [facility] [address] [place] [address] Cuba Larsen MD [address] [facility] [address] [place] [address] Mitral valve prolapse (Primary Dx) Social History Tobacco Use Types [...] on file Legal Sex Female 4:20 AM BRILLIANDEER LOOPER Gender Identity Not on file Sexual Orientation Not on file documented as of this encounter Progress Notes * Dolores Keys - 01/23/2023 9:42 AM CST Order created. Insurance auth obtained and scanned into referral. LIANDEER LOOPER documented in this encounter Plan of Treatment Scheduled Referrals Name Type Priority Associated Diagnoses Order Schedule Ambulatory referral to Cardiology Outpatient Referral Routine Mitral valve prolapse Expected: 01/23/2023 (Approximate), Expires: 01/24/2024 documented as of this encounter Visit Diagnoses Diagnosis Mitral valve prolapse- Primary Mitral valve disorders documented in this encounter Care Teams Assembly Riveter Relationship Specialty Start Date End Date Cuba Larsen MD [address] [facility] [address] [place] [address] PCP - General Family Medicine 01/23/22 Chris Sanchez MD Referring Physician Cardiology 12/23/21 Keli Orozco, doperMontessori Lead Teacher Cardiology 12/23/21 04/15/23 Alysa Newton, RN [address] [address] Montessori Lead Teacher Cardiology 12/23/21 documented as of this encounter
--- OUTSIDE RECORDS SUMMARY | 2024-03-13 01:09 | XMS_ITS | Encounter Summary ---
Author Organization [facility] Healthcare Address [address] [place] [address] Care Team Providers Care Community Service Manager Name Role Phone Chris Mendes MD Unavailable [phone] Keli Orozco RN Unavailable Unavailable Alysa Newton RN Unavailable [phone] Cuba Larsen MD Primary Care Provider [phone] Reason for Visit * Reason Onset Date Comments Referral Request 01/26/2023 Encounter Details Date Type Department Care Team (Late st Contact Info) Description 01/26/2023 Telephone [facility] Medical Group Family Medicine [address] [place] [address] Cuba Larsen MD [address] [place] [address] Referral Request Social History Tobacco Use [...] staff should administer the PHQ-9) 0 08/13/2022 Personal Safety Answer Date Recorded Getting School Help Needed Not on file 02/24 Comments No Sex and Gender Information Value Date Recorded Sex Assigned at Not on file 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 SSING MACHINE OPERATOR * Telephone Encounter - Leandra Jean - 01/26/2023 12:55 PM CST Referral Provider Name (if patient is seeing a nurse practitioner or physician animal assistant, list the INSTRUMENT LENS GRINDER APPRENTICE/PA, but also their collaborating doctor): Shaylee Feliz Specialty: Dermatology Address: [address] [place] [address], Zip: [place] [address] Diagnosis Code/Symptom/Reason Patient is being seen: R23.9 Date of Appointment: 02.17.23 NPI#: [id number] Tax ID#: [id number] Is insurance in chart up to date? yes Additional Comments: Pt is needing an insurance referral also. Does message need to be routed? Yes-Action Needed SSING MACHINE OPERATOR documented in this encounter Plan of Treatment Not on file documented as of this encounter Visit Diagnoses Not on filedocumented in this encounter Care Teams Community Service Manager Relationship Specialty Start Date End Date Cuba Larsen MD [address] [address] PCP - General Family Medicine 01/23/22 Chris Mendes MD Referring Physician Cardiology 12/23/21 Keli Orozco, risk compliance managerGarment Tag Stringer Cardiology 12/23/21 04/15/23 Alysa Newton, RN [address] [address] Garment Tag Stringer Cardiology 12/23/21 documented as of this encounter
--- OUTSIDE RECORDS SUMMARY | 2024-03-13 01:09 | XMS_ITS | Encounter Summary ---
Author Organization [facility] Healthcare Address [address] [place] [address] Care Team Providers Care Adjunct Sociology Professor Name Role Phone Chris Mendes MD Unavailable [phone] Cuba Larsen MD Primary Care Provider [phone] Keli Orozco RN Unavailable Unavailable Reason for Visit * Reason Comments Successful Phone Call 08/07/2023 - 024 (3 days)[facility] Encounter Details Date Type Department Care Team (Late st Contact Info) Description 08/12/2023 LOTTIE IP Outreach [facility] Accountable Care Organization [address] [place] [address] Anh Carmona LPN [address] [place] [address] [address] [place] [address] Social History Tobacco Use Types Packs/Day Years [...] on file 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 Patient status post-discharge: Q1 - Better Status Details: - Care head track coach spoke with patient on the phone regarding patient's recent inpatient discharge from the hospital. Patient states that she is doing well since returning home from the hospital and does report that she is not currently having any new or increased pain since her return home. Patient states that she does still have some trouble sleeping but states that this has been ongoing for years and is nothing new. She also reports that her throat is still sore from her intubation but reports that she has been gargling with salt water to help. Patient does state she has not fallen in the past six months and does not use any durable medical equipment for ambulation but does havea cane and a Walker at home if needed. Patient also reports that she was not ordered any home health care once returning home. Discharge Instructions Reviewed - Yes Details: - Patient does state that she has all of her discharge instructions from the hospital and no questions or concerns pertaining to any of the information within her discharge instructions. Medication Reconciliation Completed: - Yes Details: - Patient does state that she has all of her regular prescribed maintenance medications and is taking her medications as prescribed. Patient reports that she did have her apixaban at the home and did not need a refill from the hospital. Patient states that she is taking 5 milligrams twice a day. Appointment status: - Declined appointment Appointment Date: Patient did decline to schedule a follow up with primary care provider as care head track coach did advise that it is important to follow up with your physician after a discharge. Patient reports that she will be following up with him on September 01 at her regular scheduled visit and did decline to schedule one sooner. Care head track coach has sent a message to primary care provider regarding this. Patient educated about same day sick appts at PCP office and s/s to report to physician. Pt verbalized understanding of information presented. No additional needs identified at this time. Provided mycontact information for future needs. Anh Carmona LPN, GRAZYNA Care Pulverizer Tender [facility] Accountable Care Organization / [facility] Medical Group Contact E-Mail - [email or web address] or [phone] documented in this encounter Plan of Treatment Not on file documented as of this encounter Visit Diagnoses Not on filedocumented in this encounter Care Teams Adjunct Sociology Professor Relationship Specialty Start Date End Date Cuba Larsen MD PCP - General Family Medicine 01/23/22 Chris Mendes MD Referring Physician Cardiology 12/23/21 Keli Orozco, theatre instructor Failure Coordinator Transplant 04/15/23 documented as of this encounter
--- OUTSIDE RECORDS SUMMARY | 2024-03-13 01:09 | XMS_ITS | Encounter Summary ---
Author Organization [facility] Healthcare Address [address] [place] [address] Care Team Providers Care Research And Development Manager Name Role Phone Chris Mendes MD Unavailable [phone] Keli Orozco RN Unavailable Unavailable Alysa Newton RN Unavailable [phone] Cuba Larsen MD Primary Care Provider [phone] Reason for Visit * Reason Onset Date Comments Medication Request 03/19/2023 Encounter Details Date Type Department Care Team (Late st Contact Info) Description 03/19/2023 Telephone [facility] Medical Group Family Medicine [address] [place] [phone] Cuba Larsen MD [address] [place] [address] Medication Request Social History Tobacco Use Types Packs/Day [...] on file 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 Gender Identity Not on file Sexual Orientation Not on file documented as of this encounter Ordered Prescriptions Prescription Sig Dispense Quantity Refills Last Filled Start Date End Date lancets miscIndications:Ty pe 2 diabetes mellitus without complication, without long-term current use of insulin ([facility]) ([facility]) 1 each by other route daily 100 each 1 03/19/2023 blood glucose diagnostic (glucose blood) stripIndications:T ype 2 diabetes mellitus without complication, without long-term current use of insulin (CMS/[facility]) ([facility]) One strip daily to check glucose 100 each 1 03/19/2023 blood-glucose meter miscIndications:Ty pe 2 diabetes mellitus without complication, without long-term current use of insulin (CMS/[facility]) ([facility]) Use daily or as directed for monitoring of diabetes. 1 each 03/19/2023 documented in this encounter Miscellaneous Notes * Telephone Encounter - Leandra Winters RN - 03/19/2023 5:29 PM CST Script sent. HOUSE INCENTIVE SELECTOR * Telephone Encounter - Jerome Rascon - 03/19/2023 3:32 PM CST Medication Question/Clarification Medication Name(s): Diabetic meter and test strips What is the question or clarification needed? Spoke with patient and insurance stated they will cover it if ordered so she doesn't have to pay out of pocket. If needed, Pharmacy(s) medication(s) should be sent to: pended Additional Comments: na Does message need to be routed? Yes-Action Needed HOUSE INCENTIVE SELECTOR documented in this encounter Plan of Treatment Not on file documented as of this encounter Visit Diagnoses Diagnosis Type 2 diabetes mellitus without complication, without long-term current use of insulin (CMS/HCC) (HCC)- Primary documented in this encounter Care Teams Research And Development Manager Relationship Specialty Start Date End Date Cuba Larsen MD [address] [facility] [address] [place] [address] PCP - General Family Medicine 01/23/22 Chris Mendes MD Referring Physician Cardiology 12/23/21 Keli Orozco, user support analyst supervisorMacaroni Press Operator Cardiology 12/23/21 04/15/23 Alysa Newton, RN [address] [facility] [address] [place] [address] Macaroni Press Operator Cardiology 12/23/21 documented as of this encounter
--- OUTSIDE RECORDS SUMMARY | 2024-03-13 01:09 | XMS_ITS | Encounter Summary ---
Author Organization [facility] Healthcare Address [address] [place] [address] Care Team Providers Care Ladle Puller Name Role Phone Chris Mendes MD Unavailable [phone] Cuba Larsen MD Primary Care Provider [phone] Keli Orozco RN Unavailable Unavailable Reason for Visit * Reason Onset Date Comments Referral Request 05/22/2023 Encounter Details Date Type Department Care Team (Late st Contact Info) Description 05/22/2023 Telephone [facility] Medical Group Family Medicine [address] [address] Cuba Larsen MD [address] [place] [address] Referral Request Social History Tobacco Use [...] on file 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 * Telephone Encounter - Negra Callahan - 05/27/2023 12:23 PM CDT Call Back Caller???s Concern: Patient is at her foot doctor and they have not received the referral. She needs it re-faxed. The correct fax number is [phone]. Does message need to be routed? Yes-Action Needed * Telephone Encounter - Leandra Winters RN - 05/25/2023 12:[address] Larsen referral order placed. * Telephone Encounter - Komal Mendoza - 05/22/2023 10:36 AM CST Referral Provider Name (if patient is seeing a nurse practitioner or physician college sports assistant, list the HAMMER DRIVER/PA, but also their collaborating doctor): Dr Ayala Dorado, DPM Specialty: Orthopedic Address: [address] [place] [address], Zip: [facility] [address] Phone: [phone] Diagnosis Code/Symptom/Reason Patient is being seen: [place] on left baby toe Date of Appointment: 05/27/23 NPI#: [id number] Tax ID#: Is insurance in chart up to date? Yes Additional Comments: Does message need to be routed? Yes-Action Needed MAKER MACHINE documented in this encounter Plan of Treatment Not on file documented as of this encounter Visit Diagnoses Diagnosis [place] of toe- Primary Corns and callosities documented in this encounter Care Teams Ladle Puller Relationship Specialty Start Date End Date Cuba Larsen MD PCP - General Family Medicine 01/23/22 Chris Mendes MD Referring Physician Cardiology 12/23/21 Keli Orozco, pageant director Failure Coordinator Transplant 04/15/23 documented as of this encounter
--- OUTSIDE RECORDS SUMMARY | 2024-03-13 01:09 | XMS_ITS | Encounter Summary ---
Author Organization [facility] Medical Group Address [address] [facility] [address] [place] [address] Care Team Providers Care Piano Instructor Name Role Phone Chris Mendes MD Unavailable [phone] Keli Orozco RN Unavailable Unavailable Alysa Newton RN Unavailable [phone] Cuba Larsen MD Primary Care Provider [phone] Reason for Visit * Reason Onset Date Comments Medication Request 09/19/2022 Encounter Details Date Type Department Care Team (Late st Contact Info) Description 09/19/2022 Telephone [facility] Medical Group Family Medicine [address] [facility] [address] [place] [address] Cuba Larsen MD [address] [place] [address] Medication Request Social History Tobacco Use Types [...] on file 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 * Telephone Encounter - Molly García - 09/22/2022 10:20 AM CDT Call Back Caller???s Concern: patient notified script approved and to please send to pharmacy she is out of samples Caller???s Call back #: [phone] Does message need to be routed? Yes-Action Needed * Telephone Encounter - Cuba Larsen MD - 09/21/2022 10:30 PM CDT Farxiga 5 mg daily number 30 with 5 refills * Telephone Encounter - Irais Vergara - 09/19/2022 11:27 AM CDT Medication Question/Clarification Medication Name(s): Farxiga What is the question or clarification needed? Patient states she was given samples of this medication and has ran out. She needs a script sent over to pharmacy. If needed, Pharmacy(s) medication(s) should be sent to: on file Caller???s Callback #: [phone] Additional Comments: Caller states that the samples she was given was 10 mg's but that she cuts them in half. She states her BS in the morning is between 115- 124, so she is not sure which does Dr. Larsen wants her to be on, 10 or 5mgs. She states they are very hard for her to cut in half. Does message need to be routed? Yes-Action Needed documented in this encounter Plan of Treatment Not on file documented as of this encounter Visit Diagnoses Not on filedocumented in this encounter Care Teams Piano Instructor Relationship Specialty Start Date End Date Cuba Larsen MD [address] [address] PCP - General Family Medicine 01/23/22 Chris Mendes MD Referring Physician Cardiology 12/23/21 Keli Orozco, imaging technologistFilament Maker Cardiology 12/23/21 04/15/23 Alysa Newton, RN [address] [address] Filament Maker Cardiology 12/23/21 documented as of this encounter
--- OUTSIDE RECORDS SUMMARY | 2024-03-13 01:09 | XMS_ITS | Encounter Summary ---
Author Organization [facility] Healthcare Address [address] [place] [address] Care Team Providers Care Configuration Technician Name Role Phone Chris Sanchez MD Unavailable [phone] Cuba Larsen MD Primary Care Provider [phone] Keli Orozco RN Unavailable Unavailable Reason for Referral * Cardiology (Routine) - Closed Specialty Diagnoses / Procedures Referred By Indra t Referred To Contact Diagnoses Chronic combined systolic (congestive) and diastolic (congestive) heart failure (HCC) Procedures Transthoracic Echo (TTE) Complete W Doppler/CF Chris Sanchez MD Phone: tel: fax: [address] [address] Referral ID Status Reason Start Date Expiration Date Visits Re quested Visits Authorized [id number] Closed 02/03/2023 03/04/2024 1 1 Reason for Visit * Cardiology (Routine) - Closed Specialty Diagnoses / Procedures Referred By Contac t Referred To Contact Diagnoses Chronic combined systolic (congestive) and diastolic (congestive) heart failure (HCC) Procedures Transthoracic Echo (TTE) Complete W Doppler/CF Chris Sanchez MD Phone: tel: fax: [address] [address] Referral ID Status Reason Start Date Expiration Date Visits Re quested Visits Authorized [id number] Closed 02/03/2023 03/04/2024 1 1 Encounter Details Date Type Department Care Team (Latest Contact Info) Description 07/27/2023 12:54 PM CDT - 07/27/2023 11:59 PM CDT Hospital Encounter [facility] Cardiac Diagnostic Lab [address] 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 Gender Identity Not on file Sexual Orientation Not on file documented as of this encounter Medications at Time of Discharge blood glucose diagnostic (glucose blood) stripIndications :Type 2 diabetes mellitus without complication, without long-term current use of insulin (CMS/HCC) ([facility]) One strip daily to check glucose 100 each 1 03/19/2023 5 blood-glucose meter miscIndications: Type 2 diabetes mellitus without complication, without long-term current use of insulin (CMS/HCC) ([facility]) Use daily or as directed for monitoring of diabetes. 1 each 03/19/2023 CALCIUM CARBONATE ORAL Take 600 mg by mouth 2 (two) times a day cholecalciferol (VITAMIN D-3) 2000 unit tablet Take by mouth lancets miscIndications: Type 2 diabetes mellitus without complication, without long-term current use of insulin (CMS/HCC) (HCC) 1 each by other route daily 100 each 1 03/19/2023 ALPRAZolam (XANAX) 0.5 mg tabletIndication s:Anxiety TAKE 1 TABLET (0.5 MG TOTAL) BY MOUTH 2 (TWO) TIMES A DAY NEEDED FOR ANXIETY. 60 tablet 07/06/2023 4 carvediloL (COREG) 12.5 mg tablet Take 1 tablet (12.5 mg total) by mouth 2 (two) times a day with meals 180 tablet 3 10/24/2022 4 Eliquis 5 mg tablet TAKE 1 TABLET BY MOUTH TWICE A DAY 60 tablet 11 09/22/2022 4 furosemide (LASIX) 40 mg tablet Take 1 tablet (40 mg total) by mouth as needed (shortness of breath, lower extremity or abdominal swelling, or weight gain of 3 lbs or more in 1 day) 90 tablet 2 07/28/2022 4 glipiZIDE (GLUCOTROL) 10 mg tablet TAKE [...] WITH FOOD 180 tablet 1 03/03/2023 4 lgktwsqp-lbl-aeh n-FA-lutein 8 mg iron-400 mcg-300 mcg tablet Take by mouth 4 rosuvastatin (CRESTOR) 20 mg tablet TAKE 1 TABLET BY MOUTH EVERY DAY 90 tablet 3 06/23/2022 4 spironolactone (ALDACTONE) 25 mg tablet TAKE 1 TABLET (25 MG TOTAL) BY MOUTH DAILY. 90 tablet 3 03/19/2023 4 documented as of this encounter Discharge Disposition Disposition Code Departure Means Destination Discharge to home or self care documented in this encounter Plan of Treatment Not on file documented as of this encounter Procedures Procedure Name Priority Date/Time Associated Diagnosis Comments TRANSTHORACIC ECHO (TTE) COMPLETE W DOPPLER/CF W CONTRAST Routine 07/27/2023 2:04 PM CDT Chronic combined systolic (congestive) and diastolic (congestive) heart failure (HCC) documented in this encounter Results * TRANSTHORACIC ECHO (TTE) COMPLETE W DOPPLER/CF W CONTRAST (07/27/2023 2:04 PM CDT) LV EF 66 % CARDIOREPORT Anatomical Region Laterality Modality Ultrasound 07/27/2023 1:00 PM CDT Narrative 07/27/2023 2:43 PM CDT Patient name: Prema Pearce Date of test: 07/27/2023 Type of test: TTE w/Doppler Hospital #: [id number] Date of : 1940 (F) Advertising Material Distributor: Jayla Wilson RDCS Referring Physician: CHRIS SANCHEZ MD Contrast Agent: 1.1 ml Optison Administered, (1.9 ml wasted). Contrast Administered by: Miguel Harris RN Supervised/Interpreted by: Viktro Cabrales MD Diagnosis: Location: [facility] Reason for test: Chronic CHF [...] 2=Hypo 3=Akinetic 4=Dyskin./Aneurysm 0=Not visualized) Parasternal Long Hillister:MAS=1 BAS=1 MIL=1 NIGHAT=1 Parasternal [place]ister:MAS=1 MIS=1 MA=1 MIL=1 MAL=1 MA=1 Apical 4 Chambers:=1 MIS=1 BIS=1 BAL=1 MAL=1 AL=1 AC=1 Apical 2 Chambers:AI=1 MA=1 BI=1 BA=1 MA=1 AA=1 AC=1 LV Global [...] MD By signing this report, the attending joinery patternmaker certifies that he or she has personally supervised and interpreted the echocardiogram and has reviewed and or edited and agrees with the written comments contained within the report. Procedure Note Viktor Lauren MD - 07/27/2023 Patient name: Prema Pearce Date of test: 07/27/2023 Type of test: TTE w/Doppler [facility] #: [id number] Date of : 1940 (F) Advertising Material Distributor: Jayla Wilson RDCS Referring Physician: CHRIS SANCHEZ MD Contrast Agent: 1.1 ml Optison Administered, (1.9 ml wasted). Contrast Administered by: Miguel Harris RN Supervised/Interpreted by: Viktor Cabrales MD Diagnosis: Location: [facility] Reason for test: Chronic CHF [...] 2=Hypo 3=Akinetic 4=Dyskin./Aneurysm 0=Not visualized) Parasternal [place]ister:MAS=1 BAS=1 MIL=1 NIGHAT=1 Parasternal [place]ister:MAS=1 MIS=1 MA=1 MIL=1 MAL=1 MA=1 Apical 4 Chambers:=1 MIS=1 BIS=1 BAL=1 MAL=1 AL=1 AC=1 Apical 2 Chambers:AI=1 MA=1 BI=1 BA=1 MA=1 AA=1 AC=1 LV Global [...] MD By signing this report, the attending joinery patternmaker certifies that he or she has personally supervised and interpreted the echocardiogram and has reviewed and or edited and agrees with the written comments contained within the report. Chris Sanchez MD CV ECHO PROCEDURES Final Re sult documented in this encounter Visit Diagnoses Diagnosis Chronic combined systolic (congestive) and diastolic (congestive) heart failure (HCC) documented in this encounter Administered Medications Inactive Administered Medications - up to 3 most recent administrations Medication Order MAR Action Action Date Dose Rate Site perflutren protein-a (OPTISON) 3 mL in sodium chloride 0.9% 8 mL syringe 1-8 mL, intravenous, Once in imaging, contrast, Starting on Thu07/27/23 at 1258, For 1 dose, Intra-Procedure (CV) Contrast Given 07/27/2023 2:05 PM CDT 3 mL documented in this encounter Care Teams Configuration Technician Relationship Specialty Start Date End Date Cuba Larsen MD PCP - General Family Medicine 01/23/22 Chris Sanchez MD Referring Physician Cardiology 12/23/21 Keli Orozco, boat joiner Failure Coordinator Transplant 04/15/23 documented as of this encounter
--- OUTSIDE RECORDS SUMMARY | 2024-03-13 01:09 | XMS_ITS | Encounter Summary ---
Author Organization [facility] Medical [facility] Address [address] [place] [address] Care Team Providers Care Slider Assembler Name Role Phone Chris Mendes MD Unavailable [phone] Keli Orozco RN Unavailable Unavailable Alysa Newton RN Unavailable [phone] Cuba Larsen MD Primary Care Provider [phone] Reason for Visit * Reason Onset Date Comments Back Pain 10/23/2022 Encounter Details Date Type Department Care Team (Late st Contact Info) Description 10/23/2022 Nurse Triage [facility] Family Medicine [address] [place] [address] Fay Lemus, RN Social History Tobacco Use Types Packs/Day Years [...] on file 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 Patient was doing physical therapy. Kept on getting worse. Patient cannot get comfortable. Denies: injury, fever, blood in urine/stools, weakness in legs/arms. SDA schedule. Patient want to be seen and discuss next step. Instruct patient to call back if symptoms worsens or any further questions or concerns. Reason for Disposition Back pain lasts > 2 weeks Protocols used: Back [id number] * Telephone Encounter - Fay Lemus - 10/23/2022 10:03 AM CDT Regarding: Severe back pain ----- Message from Geovanna Parks sent at 10/23/2022 10:02 AM CDT ----- Symptom Based Call Caller's Callback #: [phone] Chief Complaint(s): Severe back pain Duration: about a week What type of symptom(s) is the patient experiencing? Red Flag. Is the patient concerned they are experiencing a medical emergency requiring an ambulance? No Additional Comments: Pain was letting up, however it has returned and it has become more severe. Does message need to be routed? Yes-Action Needed documented in this encounter Plan of Treatment Not on file documented as of this encounter Visit Diagnoses Not on filedocumented in this encounter Care Teams Slider Assembler Relationship Specialty Start Date End Date Cuba Larsen MD [address] [facility] [address] [place] [address] PCP - General Family Medicine 01/23/22 Chris Mendes MD Referring Physician Cardiology 12/23/21 Keli Orozco, shop routerNoodle Press Operator Cardiology 12/23/21 04/15/23 Alysa Newton, RN [address] [address] Noodle Press Operator Cardiology 12/23/21 documented as of this encounter
--- OUTSIDE RECORDS SUMMARY | 2024-03-13 01:09 | XMS_ITS | Encounter Summary ---
Author Organization [facility] Healthcare Address [address] [place] [address] Care Team Providers Care Apron Operator Name Role Phone Chris Mendes MD Unavailable Keli Orozco RN Unavailable Unavailable Alysa Newton RN Unavailable [phone] Cuba Larsen MD Primary Care Provider [phone] Reason for Visit * Reason Onset Date Comments Referral Request 12/30/2022 Encounter Details Date Type Department Care Team (Late st Contact Info) Description 12/30/2022 Telephone [facility] Medical [facility] Family Medicine [address] [place] [address] Cuba Larsen MD [address] [place] [address] Referral Request Social History Tobacco Use [...] on file 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 NO answer at Mannie's office. Left message on [employer]. * Telephone Encounter - Dolores Keys - 12/31/2022 7:12 AM CDT Order created. Referral will be worked in the order it was received. * Telephone Encounter - Cuba Larsen MD - 12/30/2022 1:53 PM CDT ok * Telephone Encounter - Leeann Johns - 12/30/2022 10:53 AM CDT Referral Provider Name (if patient is seeing a nurse practitioner or physician child and youth program assistant, list the CAUSTIC LOADER/PA, but also their collaborating doctor): PAVITHRA Snow Specialty: Dermatology Address: [facility]: [address] [place] [address], Zip: [place] [address] Diagnosis Code/Symptom/Reason Patient is being seen: redness and skin peeling on nose Date of Appointment: 02.17.23 NPI#: [id number] Tax ID#: did not have Is insurance in chart up to date? Yes Caller???s Callback #: [phone] Additional Comments: [facility] referral. Does message need to be routed? Yes-Action Needed * Telephone Encounter - Leandra Jean - 12/30/2022 10:37 AM CDT Referral Provider Name (if patient is seeing a nurse practitioner or physician child and youth program assistant, list the CAUSTIC LOADER/PA, but also their collaborating doctor): Specialty: Dermatology Address: [address] [place] [address], Zip: [place], [place] Fax: N/A Diagnosis Code/Symptom/Reason Patient is being seen: redness and skin peeling on nose Date of Appointment: 02.17.23 NPI#: N/A Tax ID#: [id number] Is insurance in chart up to date? yes Caller???s Callback #: [phone] Additional Comments: Patient isnt sure who she is seeing, she will contact their office and call back with additional information. Does message need to be routed? No documented in this encounter Plan of Treatment Not on file documented as of this encounter Visit Diagnoses Diagnosis Recent skin changes- Primary documented in this encounter Care Teams Apron Operator Relationship Specialty Start Date End Date Cuba Larsen MD [address] [address] PCP - General Family Medicine 01/23/22 Chris Mendes MD Referring Physician Cardiology 12/23/21 Keli Orozco, site medical directorBarrel Cap Setter Cardiology 12/23/21 04/15/23 Alysa Newton, RN [address] [address] Barrel Cap Setter Cardiology 12/23/21 documented as of this encounter
--- OUTSIDE RECORDS SUMMARY | 2024-03-13 01:09 | XMS_ITS | Encounter Summary ---
Author Organization [facility] Address [address] [place] [address] Care Team Providers Care High School Professional Name Role Phone Chris Mendes MD Unavailable [phone] Keli Orozco RN Unavailable Unavailable Alysa Newton RN Unavailable [phone] Cuba Larsen MD Primary Care Provider [phone] Reason for Visit * Reason Onset Date Comments Medication Request 12/04/2022 Encounter Details Date Type Department Care Team (Late st Contact Info) Description 12/04/2022 Telephone [facility] Medical [facility] Family Medicine [address] [facility] [address] [place] [address] Cuba Larsen MD [address] [place] [address] Medication Request Social History Tobacco Use [...] on file 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 Left detailed message for patient. * Telephone Encounter - Suzanne Rivera - 12/05/2022 9:17 AM CDT Call Back Caller???s Concern: Patient returned call, relayed message to her and she is asking if someone can call her pharmacy and cancel the Farxiga so they stop calling her. Caller???s Call back #: [phone] Does message need to be routed? Yes-Action Needed * Telephone Encounter - Leandra Winters RN - 12/04/2022 6:18 PM CDT Left VM to call back * Telephone Encounter - Cuba Larsen MD - 12/04/2022 5:19 PM CDT She can. * Telephone Encounter - Leandra Jean - 12/04/2022 11:12 AM CDT Medication Question/Clarification Medication Name(s): Farxiga What is the question or clarification needed? Patient is stating she cannot afford this medication any longer. She states she previously was on glipizide. She is wanting to know if she can go back tothat medication or provider prescribe her a similar medication she can take with her metformin If needed, Pharmacy(s) medication(s) should be sent to: [id number] - [place], [place] - [id number] [address] [place] [address] Caller???s Callback #: [phone] Additional Comments: N/A Does message need to be routed? Yes-Action Needed documented in this encounter Plan of Treatment Not on file documented as of this encounter Visit Diagnoses Not on filedocumented in this encounter Discontinued Medications Medication Sig Discontinue Reason Start Date End Da te dapagliflozin propanediol (FARXIGA) 5 mg tablet Take 1 tablet (5 mg total) by mouth daily Cost of medication 09/22/2022 12/05/2022 documented as of this encounter Care Teams High School Professional Relationship Specialty Start Date End Date Cuba Larsen MD [address] [facility] [address] [place] [address] PCP - General Family Medicine 01/23/22 Chris Mendes MD Referring Physician Cardiology 12/23/21 Keli Orozco, rfid technicianSupervisor Net Making Cardiology 12/23/21 04/15/23 Alysa Newton, ARMANI [address] [facility] [address] [place] [address] Supervisor Net Making Cardiology 12/23/21 documented as of this encounter
--- OUTSIDE RECORDS SUMMARY | 2024-03-13 01:09 | XMS_ITS | Encounter Summary ---
Author Organization [facility] Medical [facility] Address [address] [facility] [address] [place] [address] Care Team Providers Care Negotiations Director Name Role Phone Chris Mendes MD Unavailable [phone] Keli Orozco RN Unavailable Unavailable Alysa Newton RN Unavailable [phone] Ce Larsen MD Primary Care Provider [phone] Reason for Visit * Reason Comments Essence Enhanced Encounter Essence exam Encounter Details Date Type Department Care Team (Late st Contact Info) Description 08/13/2022 11:45 AM CDT Office Visit [facility] Medical [facility] at [address] [address] Ce Larsen MD [phone] [address] Other general medical examination for administrative purposes (Primary Dx); Type 2 diabetes mellitus without complication, without long-term current use of insulin (CMS/HCC) (HCC); Paroxysmal atrial fibrillation (CMS/HCC) (HCC); Acquired hypothyroidism; Essential hypertension; Gastro-esophageal reflux disease without esophagitis; Chronic combined systolic (congestive) and diastolic (congestive) heart failure (HCC); Osteoporosis screening; 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 (CMS/HCC) (HCC); WAI (generalized anxiety disorder); Essential tremor; Osteopenia after menopause; Cervical neck pain with evidence of disc [...] on file Legal Sex Female 4:20 AM CRM SOLUTION ARCHITECT Gender Identity Not on file Sexual Orientation Not on file documented as of this encounter Last Filed Vital Signs Vital Sign Reading Time Taken Comments Blood Pressure 122/84 08/13/2022 12:10 PM CDT Pulse 82 08/13/2022 12:10 PM CDT Temperature 36.7 ??C (98.1 ??F) 08/13/2022 12:10 PM C DT Respiratory Rate 18 08/13/2022 12:10 PM CDT Oxygen Saturation 94% 08/13/2022 12:10 PM CDT Inhaled Oxygen Concentration - - Weight 82.1 kg (181 lb) 08/13/2022 12:10 PM CDT Height 154.9 cm (5' 1 ) 08/13/2022 12:10 PM CDT Body Mass Index 34.2 08/13/2022 12:10 PM CDT documented in this encounter Progress Notes * Ce Larsen MD - 08/13/2022 11:45 AM CDT Images from the original note were not included. Essence Evaluation Patient Name: Prema Pearce Date Of : 1940 Date Of Service: @DATEOFSERVICE@ HPI: Essence visit ROS Review of Systems [...] Surgical History: Patient Active Problem List Diagnosis Carotid bruit Snoring Paroxysmal atrial fibrillation (CMS/HCC) (HCC) Acquired hypothyroidism Obstructive sleep apnea Type 2 diabetes mellitus without complications (CMS/HCC) (HCC) Essential hypertension Pulmonary embolism (HCC) Chronic combined systolic (congestive) and diastolic (congestive) heart failure (HCC) Gastro-esophageal reflux disease without esophagitis WAI (generalized anxiety disorder) Hypertensive heart disease with heart failure (CMS/HCC) (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) Presence of left artificial knee joint Slow transit constipation BMI 30.0-30.9,adult Pica in adults Thyroid nodule Episode of recurrent major depressive disorder (HCC) Anxiety Sleep disturbance Vitamin D deficiency Rib pain on left side Blister Carpal tunnel syndrome of left wrist History of nephrolithiasis Iron deficiency anemia Closed fracture of distal end of left fibula with routine healing Kidney stone 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 (CMS/HCC) ([facility]) Essential tremor Past Medical History: Diagnosis Date Adrenal nodule (HCC) Anxiety Aortic stenosis, moderate Atrial fibrillation (CMS/HCC) (HCC) Cardiomyopathy (HCC) Diabetes mellitus (HCC) Dyslipidemia GERD (gastroesophageal reflux disease) Heart murmur HFrEF (heart failure with reduced ejection fraction) (CMS/HCC) ([facility]) Hyperlipidemia Hypertension Hypothyroidism Insomnia Mitral regurgitation NSTEMI (non-ST elevated myocardial infarction) (CMS/HCC) ([facility]) Obesity AYAD on CPAP Patellar sleeve fracture of left knee PONV (postoperative nausea and vomiting) Pulmonary embolism ([facility]) Sleep apnea Stroke ([facility]) Zenker's diverticulum Past Surgical History: Procedure Laterality [...] activity: Defer Alcohol Use: Not At Risk (05/19/2022) AUDIT-C Frequency of Alcohol Consumption: Never Average Number of Drinks: Patient does not drink Frequency of Binge Drinking: Never Allergies: Allergies Allergen Reactions Amlodipine Shortness of breath Prasanth Inhibitors Cough Reaction: COUGH, Citalopram Lisinopril Lisinopril-Hydrochlorothiazide Dizziness and Nausea only Dizzy, nauseated Medications: Current Outpatient Medications: acetaminophen (TYLENOL) 500 mg tablet, Take 2 tablets (1,000 mg total) by mouth as needed for pain When Needed, Disp: , Rfl: ALPRAZolam (XANAX) 0.5 mg tablet, Take 1 tablet (0.5 mg total) by mouth 2 (two) times a day as needed for anxiety, Disp: 60 tablet, Rfl: 2 CALCIUM CARBONATE ORAL, Take 600 mg by mouth 2 (two) times a day , Disp: , Rfl: carvediloL (COREG) 12.5 mg tablet, Take 1 tablet (12.5 mg total) by mouth 2 (two) times a day with meals, Disp: 180 tablet, Rfl: 3 cholecalciferol (VITAMIN D-3) 50,000 unit capsule, Take 1 capsule (50,000 Units total) by mouth once a week, Disp: , Rfl: cranberry extract 200 mg capsule, Take by mouth, Disp: , Rfl: Eliquis 5 mg tablet, TAKE 1 TABLET BY MOUTH TWICE A DAY, Disp: 60 tablet, Rfl: 11 FLUoxetine (PROzac) 20 mg capsule, TAKE 60MG DAILY (ONE 40MG AND ONE 20MG AT A TIME). (Patient taking differently: Take 1 capsule (20 mg total) by mouth daily), Disp: 90 capsule, Rfl: 0 furosemide (LASIX) 40 mg tablet, Take 1 tablet (40 mg total) by mouth as needed (shortness of breath, lower extremity or abdominal swelling, or weight gain of 3 lbs or more in 1 day), Disp: 90 tablet, Rfl: 2 glipiZIDE (GLUCOTROL) 10 mg tablet, Take 1 tablet (10 mg total) by mouth 2 (two) times a day beforebreakfast and lunch, Disp: 180 tablet, Rfl: 1 levothyroxine (SYNTHROID) 50 mcg tablet, TAKE 1 TABLET BY MOUTH EVERY DAY, Disp: 90 tablet, Rfl: 0 losartan (COZAAR) 100 mg tablet, TAKE 1 TABLET BY MOUTH EVERY DAY, Disp: 90 tablet, Rfl: 3 metFORMIN (GLUCOPHAGE) 500 mg tablet, TAKE 1 TABLET BY MOUTH TWICE A DAY WITH MEALS, Disp: 180 tablet, Rfl: 0 rosuvastatin (CRESTOR) 20 mg tablet, TAKE 1 TABLET BY MOUTH EVERY DAY, Disp: 90 tablet, Rfl: 3 spironolactone (ALDACTONE) 25 mg tablet, TAKE 1 TABLET (25 MG TOTAL) BY MOUTH DAILY., Disp: 90 tablet, Rfl: 3 zolpidem (AMBIEN) 10 mg tablet, TAKE 1 TABLET BY MOUTH NIGHTLY NEEDED FOR SLEEP, Disp: 90 tablet, Rfl: 0 loratadine (CLARITIN) 10 mg tablet, Take 1 tablet (10 mg total) by mouth daily as needed for allergies, Disp: 90 tablet, Rfl: 1 iuiwtgon-pto-anmh-FA-lutein 8 mg iron-400 mcg-300 mcg tablet, Take by mouth (Patient not taking: Reported on 08/13/2022), Disp: , Rfl: predniSONE (DELTASONE) 20 mg tablet, Take 1 tablet (20 mg) by mouth 2 (two) times a day (Patient not taking: Reported on 08/13/2022), Disp: , Rfl: Depression Screen: PHQ Screening Over the past 2 weeks, how often have you been bothered by any of the following problems? Little Interest or Pleasure in Doing Things: Not at all Feeling Down, Depressed, or Hopeless: Not at all PHQ-2 Total Score (If total score is 3 or more points, staff should administer the PHQ-9): 0 Vitals: Vitals BP 122/84 Pulse 82 Temp 36.7 ??C (98.1 ??F) Resp 18 Ht 154.9 cm (5' 1 ) Wt 82.1 kg (181 lb) SpO2 94% BMI 34.20 kg/m?? Body mass index is 34.2 kg/m??. Hearing and Vision Screening: Age related [...] normal. Care Team Providers: Patient Care Team: Ce Larsen MD as PCP - General (Family Medicine) Chris Mendes MD as Referring Physician (Cardiology) Keli Orozco, RN as Congressional Aide (Cardiology) Alysa Newton, ARMANI as Congressional Aide (Cardiology) Primary Pharmacy/DME suppliers: [id number] [place] [phone] [address] Detection of Cognitive Impairment: The patient does not have cognitive impairment based on direct observation, discussion with patientor family, or review of medical records. Health Maintenance: Health Maintenance Topics with due status: Overdue Topic Date Due Albumin Creatinine Ratio, Urine Never done Osteoporosis Screening-Bone Density Scan Never done Foot Exam Never done Well Visit 65+ Never done Dilated Eye Exam 06/25/2021 Pneumococcal vaccine 65+ 12/16/2021 Health Maintenance Topics with due status: Postponed Topic Postponed Until Covid-19 Vaccine 08/06/2023 (Originally 04/16/2021) Zoster Vaccines 08/06/2023 (Originally 1991) Health Maintenance Topics with due status: Not Due Topic Last Completion Date DTaP/Tdap/Td Vaccine 05/21/2019 Lipid Panel 07/22/2022 Hemoglobin A1C 07/22/2022 eGFR 07/22/2022 Fall Risk Assessment 08/13/2022 Depression Screening-PHQ 08/13/2022 Health Maintenance Topics with due status: Completed Topic Last Completion Date Influenza Vaccine 01/19/2022 Counseling and Referral of Preventative Services: Lifestyle Recommendations Increase Physical Activity, Reduce Weight, and Improve Diet Advanced Directive Durable Power of Roads Supervisor: Discussed Today Living Will: Discussed Today Assessment and Plan: Diagnoses and all orders for this visit: Other general medical examination for administrative purposes (Primary) - completed Type 2 diabetes mellitus without complication, without long-term current use of insulin ([facility]) ([facility]) - A1c is 6.3. She does see the eye doctor. No peripheral neuropathy. We are going to stop the glipizide continue metformin add Farxiga at 5 mg daily - chronic problem with medicine change Paroxysmal atrial fibrillation ([facility]) ([facility]) - on Eliquis. Sees Cardiology Acquired hypothyroidism - TSH normal may continue present management Essential hypertension - continue meds blood pressure controlled Gastro-esophageal reflux disease without esophagitis - currently stable Chronic combined systolic (congestive) and diastolic (congestive) heart failure ([facility]) - ejection fraction 52%. Seeing Cardiology Osteoporosis screening - ordered 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 ([facility]) ([facility]) - stable WAI (generalized anxiety disorder)/insomnia - we did discussed drug interactions between Ambien and Xanax. She takes Xanax in the morning. Not with Ambien or in the evening time. We discussed daytime drowsiness verses fogginess verses falls. Discussed fall prevention Essential tremor - currently stable Cervical neck pain. Evidence of radiculopathy right arm. X-ray C-spine as well as physical therapy no anti-inflammatories. Patient here for annual Medicare wellness visit and for review of complete medical problem list. All the elements of the plan were completed as outlined by [facility]. A copy of the prevention plan was [...] patient through summary of today's office visit. Ce Larsen MD Orders Placed This Encounter Dexa Axial Skeleton Bone Density 1 or 2 Site Standing Status: Future Standing Expiration Date: 08/06/2023 Order Specific Question: Clinical question to be answered: Answer: Osteoporosis screening Order Specific Question: Where should this order be performed? Answer: [facility] [[id number]] Albumin Creatinine Ratio, Urine Standing Status: Future Number of Occurrences: 1 Standing Expiration Date: 08/06/2023 CBC with auto differential Standing Status: Future Number of Occurrences: 1 Standing Expiration Date: 08/14/2023 Comprehensive metabolic panel Standing Status: Future Number of Occurrences: 1 Standing Expiration Date: 08/14/2023 Order Specific Question: Has the patient fasted? Answer: No Lipid panel Standing Status: Future Number of Occurrences: 1 Standing Expiration Date: 08/14/2023 Order Specific Question: Has the patient been fasting for 8 hours or more? Answer: No Hemoglobin A1c Standing Status: Future Number of Occurrences: 1 Standing Expiration Date: 08/14/2023 Ambulatory referral to Ophthalmology Standing Status: Future Standing Expiration Date: 08/05/2023 Referral Priority: Routine Referral Type: Consultation Referral Reason: Specialty Services Required Referral Location: External Order Requested Specialty: Ophthalmology Number of Visits Requested: 1 documented in this encounter Miscellaneous Notes * Addendum Note - Ce Larsen MD - 08/13/2022 11:45 AM CDTAddended by: CE LARSEN on: 08/13/2022 12:55 PM Modules accepted: Orders documented in this encounter Plan of Treatment Not on file documented as of this encounter Procedures Procedure Name Priority Date/Time Associated Diagnosis Comments CBC WITH AUTO DIFFERENTIAL Routine 02/23/2023 11:01 AM CRM SOLUTION ARCHITECT Type 2 diabetes mellitus without complication, without long-term current use of insulin ([facility]) ([facility]) ALBUMIN CREATININE RATIO, URINE Routine 02/23/2023 11:01 AM CRM SOLUTION ARCHITECT Type 2 diabetes mellitus without complication, without long-term current use of insulin ([facility]) ([facility]) HEMOGLOBIN A1C Routine 02/23/2023 11:01 AM CRM SOLUTION ARCHITECT Type 2 diabetes mellitus without complication, without long-term current use of insulin ([facility]) ([facility]) LIPID PANEL Routine 02/23/2023 11:01 AM CRM SOLUTION ARCHITECT Type 2 diabetes mellitus without complication, without long-term current use of insulin ([facility]) ([facility]) COMPREHENSIVE METABOLIC PANEL Routine 02/23/2023 11:01 AM CRM SOLUTION ARCHITECT Type 2 diabetes mellitus without complication, without long-term current use of insulin ([facility]) (HCC) documented in this encounter Results * (ABNORMAL) Hemoglobin A1c (02/23/2023 11:01 AM CRM SOLUTION ARCHITECT) Hgb A1C 5.9(H) <5.7 % of total Hgb [facility] Comment: For someone without known diabetes, a hemoglobin A1c value between 5.7% and 6.4% is consistent with prediabetes and should be confirmed with a follow-up test. For someone with known diabetes, a value <7% indicates that their diabetes is well controlled. A1c targets should be individualized based on duration of diabetes, age, comorbid conditions, and other considerations. This assay result is consistent with an increased risk of diabetes. Currently, no consensus exists regarding use of hemoglobin A1c for diagnosis of diabetes for children. Blood 02/23/2023 11:0 1 AM CRM SOLUTION ARCHITECT 02/23/2023 11:01 AM CRM SOLUTION ARCHITECT Ce Larsen MD LAB BLOOD ORDERABLES Final Re sult [facility] [address] [place] [address] * (ABNORMAL) Lipid panel (02/23/2023 11:01 AM CRM SOLUTION ARCHITECT) Cholesterol 108 <200 mg/dL [facility] HDL 30(L) > OR = 50 mg/dL [facility] Triglycerides 158(H) <150 mg/dL [facility] LDL 54 mg/dL (calc) [facility] Comment: Reference range: <100 Desirable range <100 mg/dL for primary prevention; ?? <70 mg/dL for patients with CHD or diabetic patients with > or = 2 CHD risk factors. LDL-C is now calculated using the Buzz-Rao calculation, which is a validated novel method providing better accuracy than the Friedewald equation in the estimation of LDL-C. Buzz SS et al. WILFRIDO. 2013;310(19): 4473-5613 (http://education.[employer]/faq/EKV845) Chol/HDL ratio 3.6 <5.0 (calc) [facility] Non-HDL, (LDL+VLDL) 78 <130 mg/dL (calc) [facility] Comment: For patients with diabetes plus 1 major ASCVD risk factor, treating to a non-HDL-C goal of <100 mg/dL (LDL-C of <70 mg/dL) is considered a therapeutic option. Blood 02/23/2023 11:0 1 AM CRM SOLUTION ARCHITECT 02/23/2023 11:01 AM CRM SOLUTION ARCHITECT us Ce Larsen MD LAB BLOOD ORDERABLES Final Re sult [facility] [address] [place] [address] * (ABNORMAL) Comprehensive metabolic panel (02/23/2023 11:01 AM CRM SOLUTION ARCHITECT) Pathologist [facility] Glucose 121(H) 65 - 99 mg/dL [facility] Comment: ? Fasting reference interval For someone without known diabetes, a glucose value between 100 and 125 mg/dL is consistent with prediabetes and should be confirmed with a follow-up test. BUN 18 7 - 25 mg/dL [facility] Creatinine 0.61 0.60 - 0.95 mg/dL [facility] eGFR 89 > OR = 60 mL/min/1.7 3m2 [facility] BUN/creat ratio SEE NOTE: 6 - 22 (calc) [facility] Comment: ?? Not Reported: BUN and Creatinine are within ?? reference range. ? Sodium 138 135 - 146 mmol/L [facility] Potassium, pl 5.0 3.5 - 5.3 mmol/L [facility] Chloride 105 98 - 110 mmol/L [facility] CO2 26 20 - 32 mmol/L [facility] Calcium 9.5 8.6 - 10.4 mg/dL [facility] Protein, sr 7.2 6.1 - 8.1 g/dL [facility] Albumin 4.4 3.6 - 5.1 g/dL [facility] GLOBULIN 2.8 1.9 - 3.7 g/dL (calc) [facility] Alb/glob ratio 1.6 1.0 - 2.5 (calc) [facility] Bilirubin, total 0.6 0.2 - 1.2 mg/dL [facility] Alk phos 79 37 - 153 U/L [facility] AST 17 10 - 35 U/L [facility] ALT (SGPT) 12 6 - 29 U/L [facility] Blood 02/23/2023 11:0 1 AM CRM SOLUTION ARCHITECT 02/23/2023 11:01 AM CRM SOLUTION ARCHITECT us Ce Larsen MD LAB BLOOD ORDERABLES Final Re sult [facility] [address] [place] [address] * CBC with auto differential (02/23/2023 11:01 AM CRM SOLUTION ARCHITECT) WBC 6.0 3.8 - 10.8 Thousand/u L [facility] RBC, POC 4.57 3.80 - 5.10 Million/uL [facility] Hgb 14.3 11.7 - 15.5 g/dL [facility] Hct 42.7 35.0 - 45.0 % [facility] MCV 93.4 80.0 - 100.0 fL [facility] MCH 31.3 27.0 - 33.0 pg [facility] MCHC 33.5 32.0 - 36.0 g/dL [facility] Rdw 12.1 11.0 - 15.0 % [facility] Platelets 298 140 - 400 Thousand/u L [facility] MPV 10.0 7.5 - 12.5 fL [facility] Neutrophils, abs 3,624 1,500 - 7,800 cells/uL [facility] Lymphocytes, abs 1,770 850 - 3,900 cells/uL [facility] Monocyte abs 480 200 - 950 cells/uL [facility] Eosinophils, abs 108 15 - 500 cells/uL [facility] Basophils, abs 18 0 - 200 cells/uL [facility] Neutrophils 60.4 % [facility] Lymphocyte pct 29.5 % [facility] Monocytes 8.0 % [facility] Eosinophils 1.8 % [facility] Basophils 0.3 % [facility] Blood 02/23/2023 11:0 1 AM CRM SOLUTION ARCHITECT 02/23/2023 11:01 AM CRM SOLUTION ARCHITECT Ce Larsen MD LAB BLOOD [facility]ABLES [facility] [address] [place] [address] * Albumin Creatinine Ratio, Urine (02/23/2023 11:01 AM CRM SOLUTION ARCHITECT) Creatinine, ur 94 20 - 275 mg/dL [...] diagnostic category. Urine 02/23/2023 11:0 1 AM CRM SOLUTION ARCHITECT 02/23/2023 11:01 AM CRM SOLUTION ARCHITECT us Ce Larsen MD LAB URINE ORDERABLES Final Re sult [id number] [id number] [place] [address] * XR Spine Cervical 2 or 3 [...] 6:47 AM - Electronically signed by ??Frank Ferguson M.D. D: ??08/14/2022 6:46 AM T: Report ID: [id number] Reading Location: ??[id number] Procedure Note Frank Ferguson MD - 08/14/2022 [...] by Frank Ferguson M.D. T: Report ID: [id number] Reading Location: [place] [address] Ce Larsen MD IMG XR PROCEDURES Final Resul t documented in this encounter Visit Diagnoses Diagnosis Other general medical examination for administrative purposes- Primary Type 2 diabetes mellitus without complication, without long-term current use of insulin (CMS/HCC) (HCC) Paroxysmal atrial fibrillation (CMS/HCC) (HCC) Atrial fibrillation Acquired hypothyroidism Unspecified hypothyroidism Essential hypertension Unspecified essential hypertension Gastro-esophageal reflux disease without esophagitis Chronic combined systolic (congestive) and diastolic (congestive) heart failure (HCC) Osteoporosis screening Special screening for osteoporosis 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 (CMS/HCC) (HCC) WAI (generalized anxiety disorder) Generalized anxiety disorder Essential tremor Osteopenia after menopause Cervical neck pain with evidence of disc disease Other and unspecified disc disorder of cervical region Cervical neck pain with evidence of disc disease Other and unspecified disc disorder of cervical region documented in this encounter Care Teams Negotiations Director Relationship Specialty Start Date End Date Ce Larsen MD [address] [address] PCP - General Family Medicine 01/23/22 Chris Mendes MD Referring Physician Cardiology 12/23/21 Keli Orozco, commercial real estate attorneyCongressional Aide Cardiology 12/23/21 04/15/23 Alysa Newton, RN [address] [address] Congressional Aide Cardiology 12/23/21 documented as of this encounter
--- OUTSIDE RECORDS SUMMARY | 2024-03-13 01:09 | XMS_ITS | Encounter Summary ---
Author Organization [facility] Address [address] [place] [address] Phone Care Team Providers Care Band Splitter Name Role Phone Chris Mendes MD Unavailable [phone] Keli Orozco RN Unavailable Unavailable Alysa Newton RN Unavailable [phone] Cuba Larsen MD Primary Care Provider [phone] Reason for Visit * Consultation (Routine) - Closed Specialty Diagnoses / Procedures Referred By Contac t Referred To Contact Cardiology Diagnoses Essential hypertension Atrial fibrillation, unspecified type (HCC) Chronic heart failure with preserved ejection fraction (CMS/HCC) (HCC) Cathleen Walker MD Phone: tel: fax: [facility] (All Locations) Referral ID Status Reason Start Date Expiration Date V isits Requested Visits Authorized [id number] Closed Specialty Services Required 01/02/2022 01/01/2023 12 12 Encounter Details Date Type Department Care Team (Late st Contact Info) Description 07/28/2022 2:20 PM CDT Office Visit [facility] Cardiology [address] [place] [address] [place] [id number] Chris Mendes MD [address] [place] [address] Chronic combined systolic (congestive) and diastolic (congestive) heart failure (HCC) (Primary Dx) Social History Tobacco Use [...] on file 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 Gender Identity Not on file Sexual Orientation Not on file documented as of this encounter Last Filed Vital Signs Vital Sign Reading Time Taken Comments Blood Pressure 117/80 07/28/2022 2:16 PM CDT Pulse 74 07/28/2022 2:16 PM CDT Temperature - - Respiratory Rate - - Oxygen Saturation 96% 07/28/2022 2:16 PM CDT Inhaled Oxygen Concentration - - Weight 82.1 kg (181 lb) 07/28/2022 2:16 PM CDT Height 154.9 cm (5' 1 ) 07/28/2022 2:16 PM CDT Body Mass Index 34.2 07/28/2022 2:16 PM CDT documented in this encounter Patient Instructions * Patient Instructions* Keli Orozco, RN - 07/28/2022 2:20 PM CDT Our office number is [phone]. Aracelis are RNs Stop taking Diltiazem Take Furosemide only as needed now Increase Carvedilol to 12.5 mg daily Please record your blood pressure and heart rate in the morning before medications and again in theearly afternoon for the next week. Return in 6 months for follow up documented in this encounter Ordered Prescriptions Prescription Sig Dispense Quantity Refills Last Filled Start Date End Date furosemide (LASIX) 40 mg tablet Take 1 tablet (40 mg total) by mouth as needed (shortness of breath, lower extremity or abdominal swelling, or weight gain of 3 lbs or more in 1 day) 90 tablet 2 07/28/2022 4 carvediloL (COREG) 12.5 mg tablet Take 1 tablet (12.5 mg total) by mouth 2 (two) times a day with meals 180 tablet 3 07/28/2022 3 documented in this encounter Progress Notes * Ned Urbina MD - 07/28/2022 2:20 PM CDT Images from the original note were not included. Department of Medicine Chris Mendes M.D. Cardiovascular Division Professor, [facility] Director, Heart Failure Program RETURN OFFICE VISIT NOTE Date of Visit: 07/28/22 Name: Prema Pearce : 1940 Medical Record: [id number] Correspondence: Cuba Larsen MD DIAGNOSES Persistent atrial [...] 08/2020: LVEF 66%, moderate Aortic stenosis, moderate C 09/2020: 20 mmHg gradient on pull back Echo 08/31/20: DI 0.35, mean 16 mmHg, peak 27 mmHg, HOLLI 1.2 cm2 Mild coronary artery disease [facility] 08/2020: minimal luminal irregularities in left main. [...] to see Prema Pearce today at the [facility] for follow-up of her systolic heart failure with recovered ejection fraction as well as the above noted conditions. She is accompanied by her son today. She is a 82 y.o. year old White female who we last saw in the office Jan 13. Since that time she has not been hospitalized or required other acute care. She has been doing well and for the most part has been keeping busy with housework and light gardening. She has experienced occasional episodes of lightheadedness and unsteadiness when standing from a laying position. She takes her blood press ure regularly and noted a low pressure in the 80s systolic during one of these episodes. She deniesfalls and loss of consciousness. She had her dose of carvedilol recently decreased and has otherwise continued to take her medications regularly. She otherwise denies orthopnea, paroxysmal nocturnal d yspnea, peripheral edema, chest pain, syncope, near syncope, and palpitations. She has an echo done today prior to her clinic visit. It was reviewed and interpreted with Dr. Mendes. It was notable for slow Afib, normal LV size with low normal systolic function (LVEF 52%), decreased LV strain pattern, normal RV size and function, marked bi-atrial enlargement, indeterminate diastolic function with evidence of elevated filling pressures, calcified aortic valve with moderate aortic stenosis (HOLLI 0.8 cm2, mean gradient 12 mmHg, peak 20 mmHg, DI 19/54), moderate mitral annuluscalcification with mild MR, mild TR, mild PI, mildly dilated IVC, PASP estimated at 35 mmHg, and normal aorta. Compared to the previous from 08/31/20, there are no significant changes. ROS: Review of systems per HPI and, otherwise all other systems are negative CURRENT MEDICATIONS: Current Outpatient Medications: acetaminophen (TYLENOL) 500 mg [...] times a day , Disp: , Rfl: cholecalciferol (VITAMIN D-3) 50,000 unit capsule, Take 1 capsule (50,000 Units total) by mouth once a week, Disp: , Rfl: cranberry extract 200 mg capsule, Take by mouth, Disp: , Rfl: Eliquis 5 mg tablet, TAKE 1 TABLET BY MOUTH TWICE A DAY, Disp: 60 tablet, Rfl: 11 FLUoxetine (PROzac) 20 mg capsule, TAKE 60MG DAILY (ONE 40MG AND ONE 20MG AT A TIME)., Disp: 90 capsule, Rfl: 0 glipiZIDE (GLUCOTROL) 10 mg tablet, Take 1 tablet (10 mg total) by mouth 2 (two) times a day beforebreakfast and lunch, Disp: 180 tablet, Rfl: 1 levothyroxine (SYNTHROID) 50 mcg tablet, TAKE 1 TABLET BY MOUTH EVERY DAY, Disp: 90 tablet, Rfl: 1 losartan (COZAAR) 100 mg tablet, TAKE 1 TABLET BY MOUTH EVERY DAY, Disp: 90 tablet, Rfl: 3 metFORMIN (GLUCOPHAGE) 500 mg tablet, TAKE 1 TABLET BY MOUTH TWICE A DAY WITH MEALS, Disp: 180 tablet, Rfl: 0 agxzyrej-mxa-gnpc-FA-lutein 8 mg iron-400 mcg-300 mcg tablet, Take by mouth, Disp: , Rfl: predniSONE (DELTASONE) 20 mg tablet, Take 1 tablet (20 mg) by mouth 2 (two) times a day, Disp: , Rfl: rosuvastatin (CRESTOR) 20 mg tablet, TAKE 1 TABLET BY MOUTH EVERY DAY, Disp: 90 tablet, Rfl: 3 spironolactone (ALDACTONE) 25 mg tablet, TAKE 1 TABLET (25 MG TOTAL) BY MOUTH DAILY., Disp: 90 tablet, Rfl: 3 zolpidem (AMBIEN) 10 mg tablet, TAKE 1 TABLET BY MOUTH NIGHTLY NEEDED FOR SLEEP, Disp: 90 tablet, Rfl: 0 carvediloL (COREG) 12.5 mg tablet, Take 1 tablet (12.5 mg total) by mouth 2 (two) times a day with meals, Disp: 180 tablet, Rfl: 3 furosemide (LASIX) 40 mg tablet, Take 1 tablet (40 mg total) by mouth as needed (shortness of breath, lower extremity or abdominal swelling, or weight gain of 3 lbs or more in 1 day), Disp: 90 tablet, Rfl: 2 loratadine (CLARITIN) 10 mg tablet, Take 1 tablet (10 mg total) by mouth daily as needed for allergies, Disp: 90 tablet, Rfl: 1 No current facility-administered medications for this visit. ALLERGIES: Allergies Allergen Reactions Amlodipine Shortness of breath Prasanth Inhibitors Cough Reaction: COUGH, Citalopram Lisinopril Lisinopril-Hydrochlorothiazide Dizziness and Nausea only Dizzy, nauseated PHYSICAL EXAM: Vitals: 07/28/22 1416 BP: 117/80 BP Location: Left arm Patient Position: Sitting Pulse: 74 SpO2: 96% Weight: 82.1 kg (181 lb) Body mass index is 34.2 kg/m??. Wt Readings from Last 3 Encounters: 07/28/22 82.1 kg (181 lb) 05/19/22 78.8 kg (173 lb 12.8 oz) 02/13/22 76.1 kg (167 lb 12.8 oz) General Appearance: No distress, [...] DATA: Chemistry Component Value Date/Time SODIUM 138 10/28/2021 0910 POTASSIUM 4.0 10/28/2021 0910 CHLORIDE 104 10/28/2021 0910 CO2 26 10/28/2021 0910 BUNSER 12 10/28/2021 0910 CREATININE 0.54 (L) 10/28/2021 0910 CREATININE 0.40 (A) 06/02/2021 0000 GLUCOSE 108 (H) 10/28/2021 0910 Component Value Date/Time CALCIUM 9.7 10/28/2021 0910 ALKPHOS 93 10/28/2021 0910 AST 14 10/28/2021 0910 ALT 14 10/28/2021 0910 BILITOT 0.9 10/28/2021 0910 Lab Results Component Value Date WBC 7.0 10/28/2021 HGB 11.9 10/28/2021 HCT 34.5 (L) 10/28/2021 MCV 92.5 10/28/2021 LABPLAT 319 10/28/2021 Lab Results Component Value Date ALT 14 10/28/2021 AST 14 10/28/2021 ALKPHOS 93 10/28/2021 BILITOT 0.9 10/28/2021 Lab Results Component Value Date NPROBNP 6,714 (H) 06/08/2019 NPROBNP 7,985 (H) 05/29/2019 Lab Results Component Value Date HGBA1C 6.1 (H) 10/28/2021 HGBA1C 6.2 (H) 05/25/2021 HGBA1C 6.1 (H) 03/12/2021 Lab Results Component Value Date CHOL 92 10/28/2021 CHOL 73 05/25/2021 CHOL 106 08/20/2020 Lab Results Component Value Date HDL 39 (L) 10/28/2021 HDL 37 (L) 05/25/2021 HDL 36 (L) 08/20/2020 Lab Results Component Value Date LDLCALC 15 05/25/2021 LDLCALC 17 06/08/2019 LDLCALC 29 05/31/2019 LDL 34 10/28/2021 LDL 45 08/20/2020 LDL 116 (H) 02/12/2018 Lab Results Component Value Date TRIG 105 10/28/2021 TRIG 104 05/25/2021 TRIG 174 (H) 08/20/2020 CARDIOGRAPHICS: Echo 07/28/22 prior to clinic visit - It was reviewed and interpreted with Dr. Mendes. It was notable for slow Afib, normal [...] is able to complete light housework and gardening without limitations. She denies symptoms of volume overload. -she is hemodynamically stable and euvolemic on examination, current weight is 181 lbs -her last Echo (07/28/22) is notable for normal LV size with low normal systolic function (LVEF 52%), decreased LV strain pattern, normal RV size and function, and indeterminate diastolic function with evidence of elevated filling pressures. -she remains active at this time with minimal symptoms. She continues to have recovered function onher echo. We will therefore continue optimally tolerated GDMT as outlined below: -Beta kimberley: increase carvedilol to 12.5 mg BID -RAAS/ARNI/Afterload: losartan 100 mg daily -MRA: spironolactone 25 mg daily -SGLT2: deferred at this time given recovered LVEF -Preload/diuresis: she is euvolemic. We will change her lasix 40 mg to PRN for weight gain of 3 lbsin one day or 5 lbs in 2 days, swelling and worsening dyspnea. -Device therapies: none -Other HF medications: none -Advanced therapies: not indicated at this time given her recovered ejection fraction. #. Moderate aortic stenosis -she remains active around her home with no symptoms concerning for progression of her stenosis. -her echo today (07/28/22) is mostly unchanged from her previous with HOLLI 0.8 cm2, mean gradient 12 mmHg, peak 20 mmHg, DI 19/) -we will continue to monitor her symptoms and will repeat an echocardiogram in one year. -she has been counseled on the warning signs of progressive aortic stenosis including chest discomfort, worsening dyspnea and fatigue, as well as syncopal episodes. #. Persistent Atrial fibrillation -she is irregular on examination today. -she will continue an increased dose of carvedilol 12.5 mg BID. We will discontinue her diltiazem today due to episodes of orthostatic hypotension at home. -she will continue anticoagulation with Eliquis 5 mg BID for her high stroke risk ([id number]: 6). #. Mild coronary artery disease #. Dyslipidemia -she had mild luminal irregularities and a 60% ostial diagonal lesion on her last left heart catheterization. -she is currently chest discomfort free and without anginal symptoms. -she will continue risk factor reduction with rosuvastatin 20 mg daily. #. Essential hypertension -her blood pressure today was 117/80 mmHg -we will continue her current medical regimen as outlined above RTC in 6 months. Repeat echo in 12 months. ORDERS THIS ENCOUNTER: No orders of the defined types were placed in this encounter. Sincerely, Ned Urbina MD Edge Cutting Machine Operator, PGY 07/28/22 6:18 PM Cosigned by Chris Mendes MD at 07/28/2022 10:57 PM CDT Associated attestation - Chris Mendes MD - 07/28/2022 10:57 PM CDT I have seen and examined the patient. I agree with the findings and plan of care as documented in the resident/fellow's note. My total encounter time on 07/28/2022 was 40 minutes which was spent in the activities documented in the note. This includes time spent prior to the visit and after the visitin direct care of the patient. This time does not include time spent in any separately reportable services. documented in this encounter Plan of Treatment Not on file documented as of this encounter Visit Diagnoses Diagnosis Chronic combined systolic (congestive) and diastolic (congestive) heart failure (HCC)- Primary documented in this encounter Discontinued Medications Medication Sig Discontinue Reason Start Date End Da te dilTIAZem CD/XR/XT (dilTIAZem CD) 120 mg 24 hr capsule Take 1 capsule (120 mg total) by mouth 2 (two) times a day Alternate therapy 07/23/2022 07/28/2022 furosemide (LASIX) 40 mg tablet Take 1 tablet (40 mg total) by mouth daily Reorder 01/17/2022 07/28/2022 carvediloL (COREG) 12.5 mg tablet Take 1 tablet (12.5 mg total) by mouth 2 (two) times a day with meals Reorder 07/17/2022 07/28/2022 documented as of this encounter Care Teams Band Splitter Relationship Specialty Start Date End Date Cuba Larsen MD [address] [address] PCP - General Family Medicine 01/23/22 Chris Mendes MD Referring Physician Cardiology 12/23/21 Keli Orozco, butcher or smallgoods makerLightning Rod Installer Cardiology 12/23/21 04/15/23 Alysa Newton, RN [address] [address] Lightning Rod Installer Cardiology 12/23/21 documented as of this encounter
--- OUTSIDE RECORDS SUMMARY | 2024-03-13 01:09 | XMS_ITS | Encounter Summary ---
Author Organization [facility] Healthcare Address [address] [place] [address] Care Team Providers Care Visual Display Manager Name Role Phone Chris Mendes MD Unavailable [phone] Cuba Larsen MD Primary Care Provider [phone] Keli Orozco RN Unavailable Unavailable Reason for Visit * Reason Comments Essence Enhanced Encounter Encounter Details Date Type Department Care Team (Late st Contact Info) Description 09/02/2023 1:45 PM CDT Office Visit [facility] Medical Group Family Medicine at [address] [place] [address] Cuba Larsen MD [address] [place] [address] Other general medical examination for administrative purposes (Primary Dx); Essential hypertension; Acquired hypothyroidism; Paroxysmal atrial fibrillation (CMS/HCC) (HCC); Type 2 diabetes mellitus without complication, without long-term current use of insulin (CMS/HCC) (HCC); Gastro-esophageal reflux disease without esophagitis; WAI (generalized anxiety disorder); Essential tremor; AYAD on CPAP; Moderate episode of recurrent major depressive disorder (HCC) Social History Tobacco Use Types Packs/Day Years [...] on file 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 Gender Identity Not on file Sexual Orientation Not on file documented as of this encounter Last Filed Vital Signs Vital Sign Reading Time Taken Comments Blood Pressure 136/84 09/02/2023 2:02 PM CDT Pulse 76 09/02/2023 2:02 PM CDT Temperature 36.9 ??C (98.5 ??F) 09/02/2023 2:02 PM CD T Respiratory Rate 20 09/02/2023 2:02 PM CDT Oxygen Saturation 97% 09/02/2023 2:02 PM CDT Inhaled Oxygen Concentration - - Weight 85.2 kg (187 lb 14.4 oz) 09/02/2023 2:02 PM CDT Height 157.5 cm (5' 2 ) 09/02/2023 2:02 PM CDT Body Mass Index 34.37 09/02/2023 2:02 PM CDT documented in this encounter Ordered Prescriptions Prescription Sig Dispense Quantity Refills Last Filled Start Date End Date FLUoxetine (PROzac) 20 mg capsule Take 1 capsule (20 mg total) by mouth daily 30 capsule 2 09/02/2023 documented in this encounter Progress Notes * Ingrid Zimmerman, CERTIFIED SOLID WASTE FACILITY OPERATOR - 09/02/2023 1:45 PM CDT Error * Cuba Larsen MD - 09/02/2023 1:45 PM CDT Images from the original note were not included. Prema Pearce is a 83 y.o. year old White Non- female here an for Annual Wellness Visit. Medicare Health Risk Assessment Basic Information In general, would you say your health is: Good Do you have an advance directive, such as a living will or durable power of regulatory attorney?: Yes Do you have to strain or struggle to hear/understand conversations?: (!) Yes Over the last 2 weeks, how often have you been bothered by any of the following problems? Little Interest or Pleasure in Doing Things: Nearly every day Feeling Down, Depressed, or Hopeless: Nearly every day PHQ-2 Total Score (If total score is 3 or more points, staff should administer the PHQ-9): 12 In the past year, patient experienced: One or more falls in the last year: No Do you feel unsteady when standing or walking?: Yes Do you worry about falling?: Yes Safety Do you have a working smoke [...] Nutrition How would you rate your appetite?: Fair How would you describe the condition of your mouth and teeth/dentures?: Excellent On a typical day, how many servings of fruits and vegetables do you eat?: 1 On a typical day, how many servings of high fiber/whole-grain foods do you eat?: 2 On a typical day, how many servings of high fat/fried foods do you eat?: 0 Have you experienced any of the following problems currently or recently? Eating: No Grooming: No Bathing: No Walking: No Using the toilet: No Memory problems: No Difficulty speaking: No Dressing: No Balance: No Pain: (!) Yes (toe pain) Fatigue: (!) Yes Depression: (!) Yes Life Satisfaction: (!) Yes Stress: (!) Yes Anger: No Loneliness or Social Isolation: No Suicide: No Have you experienced any of the following problems currently or recently? Laundry and/or housekeeping: No Handling money: No Shopping: No Using the Phone: No Food preparation: No Transportation: No Taking and/or getting your own medications: No Do you use prescription drugs that are not prescribed for you?: No Based on my observation of the patient, review of Health Risk Assessment (HRA) and other records, this is my assessment and recommendation regarding fall risk, hearing impairment, home safety, ADLs, or any other issues identified in the HRA: Reviewed 83-year-old female. She was admitted for a right-sided MCA stroke. Did have a thrombectomy. Eventually discharged home. He does see cardiology for AFib. She has nonocclusive CAD Other medical issues have been stable. A1c has been good. Status post CVA. Has some worsening mood. Has been off the Prozac for awhile. Still has some insomnia. Problem List, Past Medical and Surgical History: Patient Active Problem List Diagnosis Paroxysmal atrial fibrillation (CMS/HCC) (HCC) Acquired hypothyroidism Type 2 diabetes mellitus without complications (CMS/HCC) (HCC) Essential hypertension Gastro-esophageal reflux disease without esophagitis WAI (generalized anxiety disorder) Presence of left artificial knee joint Slow transit constipation Pica in adults Thyroid nodule Moderate episode of recurrent major depressive disorder (HCC) AYAD on CPAP History of nephrolithiasis Essential tremor History of CVA (cerebrovascular accident) Past Medical History: Diagnosis Date Adrenal nodule [...] only Dizzy, nauseated Medications: Current Outpatient Medications: ALPRAZolam (XANAX) 0.5 mg tablet, TAKE 1 TABLET (0.5 MG TOTAL) BY MOUTH 2 (TWO) TIMES A DAY NEEDED FOR ANXIETY., Disp: 60 tablet, Rfl: 0 apixaban (Eliquis) 5 mg tablet, Take 1 tablet (5 mg total) by mouth 2 (two) times a day, Disp: 60 tablet, Rfl: 11 blood glucose diagnostic (glucose blood) strip, One strip daily to check glucose, Disp: 100 each, Rfl: 1 blood-glucose meter [facility], Use daily or as directed for monitoring of diabetes., Disp: 1 each, Rfl: 0 CALCIUM CARBONATE ORAL, Take 600 mg by mouth 2 (two) times a day , Disp: , Rfl: carvediloL (COREG) 12.5 mg tablet, Take 1 tablet (12.5 mg total) by mouth 2 (two) times a day with meals, Disp: 180 tablet, Rfl: 3 cholecalciferol (VITAMIN D-3) 2000 unit tablet, Take by mouth, Disp: , Rfl: furosemide (LASIX) 40 mg tablet, Take 1 tablet (40 mg total) by mouth daily, Disp: , Rfl: glipiZIDE (GLUCOTROL) 10 mg tablet, TAKE 1 TABLET BY MOUTH TWICE A DAY BEFORE BREAKFAST AND LUNCH (Patient taking differently: Take 1 tablet (10 mg total) by mouth Takes one I AM and 0.5 tab in PM), Disp: 180 tablet, Rfl: 1 lancets misc, 1 each by other route daily, Disp: 100 each, Rfl: 1 levothyroxine (SYNTHROID) 50 mcg tablet, TAKE 1 TABLET BY MOUTH EVERY DAY, Disp: 90 tablet, Rfl: 0 losartan (COZAAR) 100 mg tablet, TAKE 1 TABLET BY MOUTH EVERY DAY, Disp: 90 tablet, Rfl: 3 melatonin 5 mg tablet, Take 1 tablet (5 mg total) by mouth nightly, Disp: , Rfl: metFORMIN (GLUCOPHAGE) 500 mg tablet, TAKE 1 TABLET BY MOUTH TWICE A DAY WITH FOOD, Disp: 180 tablet, Rfl: 1 rosuvastatin (CRESTOR) 20 mg tablet, TAKE 1 TABLET BY MOUTH EVERY DAY, Disp: 90 tablet, Rfl: 3 spironolactone (ALDACTONE) 25 mg tablet, TAKE 1 TABLET (25 MG TOTAL) BY MOUTH DAILY., Disp: 90 tablet, Rfl: 3 FLUoxetine (PROzac) 20 mg capsule, Take 1 capsule (20 mg total) by mouth daily, Disp: 30 capsule, Rfl: 2 xygycdhb-nod-cous-FA-lutein 8 mg iron-400 mcg-300 mcg tablet, Take by mouth (Patient not taking: Reported on 09/02/2023), Disp: , Rfl: Depression Screen: PHQ Screening Over the past 2 weeks, how often have you been bothered by any of the following problems? Little Interest or Pleasure in Doing Things: Nearly every day Feeling Down, Depressed, or Hopeless: Nearly every day PHQ-2 Total Score (If total score is 3 or more points, staff should administer the PHQ-9): 12 Trouble Falling or Staying Asleep, or Sleeping too Much: Nearly every day Feeling Tired or Having Little Energy: Nearly every day Poor Appetite or Overeating: Not at all Feeling Bad About Yourself - or That You are a Failure or Have Let Yourself or Your Family Down: Not at all Trouble Concentrating on Things, Such as Reading the Newspaper or Watching Television: Not at all Moving or Speaking so Slowly That Other People Could Have Noticed, or the Opposite - Being so Fidgety or Restless That You Have Been Moving Around a lot More Than Usual: Not at all Thoughts That You Would be Better off , or of Hurting Yourself in Some Way: Not at all PHQ-9 Total Score: 12 If you checked off any problems, how difficult have these problems made it for you to do your work,take care of things at home, or get along with other people?: Somewhat difficult Vitals: Vitals BP 136/84 (BP Location: Right arm, Patient Position: Sitting) Pulse 76 Temp 36.9 ??C (98.5 ??F) Resp 20 Ht 157.5 cm (5' 2 ) Wt 85.2 kg (187 lb 14.4 oz) SpO2 97% BMI 34.37 kg/m?? Body mass index is 34.37 kg/m??. Exam: Physical Exam Constitutional: Appearance: She is [...] Mendes MD as Referring Physician (Cardiology) Keli Orozco RN as Heart Failure Coordinator (Transplant) Primary Pharmacy/DME suppliers: [id number] [address] [place] [address] [address] [place] [address] I reviewed the patient???s home and community safety, including driving, and made the following recommendations Reviewed. Detection of Cognitive Impairment: The patient does have cognitive impairment based on direct observation, discussion with patient or family, or review of medical records. Health Maintenance: Health Maintenance Topics with due status: Overdue Topic Date Due Osteoporosis Screening-Bone Density Scan Never done Hepatitis B Screening Never done Covid-19 Vaccine 11/14/2022 Health Maintenance Topics with due status: Postponed Topic Postponed Until Zoster Vaccine 10/24/2023 (Originally 1991) Health Maintenance Topics with due status: Not Due Topic Last Completion Date DTaP/Tdap/Td Vaccine 05/21/2019 Dilated Eye Exam 12/10/2022 Albumin Creatinine Ratio, Urine 02/23/2023 Foot Exam 03/03/2023 Lipid Panel 08/07/2023 Hemoglobin A1C 08/07/2023 eGFR 08/09/2023 Fall Risk Assessment 09/02/2023 Depression Screening 09/02/2023 Well Visit 65+ 09/02/2023 Health Maintenance Topics with due status: Completed Topic Last Completion Date Influenza Vaccine 12/06/2022 Pneumococcal vaccine 65+ 03/03/2023 Counseling and Referral of Preventative Services: Lifestyle Recommendations Increase Physical Activity, Increase Social Engagement, and Improve Diet Advanced Directive Durable Power of Beef Splitter: Discussed Today: Living Will: Discussed Today: Assessment and Plan: Diagnoses and all orders for this visit: Other general medical examination for administrative purposes (Primary) Colonoscopy- NA Dexa (hx fx only)- ordered 08/13/22 Diabetic eye exam-due now Dr Garrett nuñez due 12/11/23 Fall Risk- UTD PHQ9-UTD FLU- done, 11/06 Pneumo- done [facility]- 2023 UTD BMI-NA Statins- rosuvastatin Antiplatelets- eliquis, asa Mood worse, SP CVA 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 Meds reviewed Essential hypertension Cont meds, BP stable Acquired hypothyroidism TSH normal, cont meds Paroxysmal atrial fibrillation (CMS/[facility]) (HCC) On meds, sees cardio, stable Type 2 diabetes mellitus without complication, without long-term current use of insulin (CMS/[facility]) (HCC) A1C 6.1, cont meds, diet, accuc checks Gastro-esophageal reflux disease without esophagitis On a PPI, cont meds WAI (generalized anxiety disorder)/ Depression worsening Prozac 20 mg daily Rec counseling Resume , off meds Essential tremor Cont meds AYAD on CPAP Cont CPAP Hist of CVA Stable No PT OT Mood main issue FU 4 weeks Patient here for annual Medicare wellness visit and for review of complete medical problem list. All the elements of the plan were completed as outlined by CMS. A copy of the prevention plan was given to the patient. I reviewed Medicare Wellness Questionnaire (other physicians involved in care, depression screen, advanced directives), cognitive/memory, and functional assessment. I reviewed and updated the complete problem list, medication list, family history, and immunization records with the patient. I provided preventive counseling and early detection interventions to the patient through health maintenance update and summary of today's office visit. Cuba Larsen MD documented in this encounter Plan of Treatment Not on file documented as of this encounter Visit Diagnoses Diagnosis Other general medical examination for administrative purposes- Primary Essential hypertension Unspecified essential hypertension Acquired hypothyroidism Unspecified hypothyroidism Paroxysmal atrial fibrillation (CMS/HCC) (HCC) Atrial fibrillation Type 2 diabetes mellitus without complication, without long-term current use of insulin (CMS/HCC) (HCC) Gastro-esophageal reflux disease without esophagitis WAI (generalized anxiety disorder) Generalized anxiety disorder Essential tremor AYAD on CPAP Moderate episode of recurrent major depressive disorder (HCC) documented in this encounter Discontinued Medications Medication Sig Discontinue Reason Start Date End Da te FLUoxetine (PROzac) 20 mg capsule Take 1 capsule (20 mg total) by mouth daily Reorder 09/02/2023 documented as of this encounter Historical Medications * This list may reflect changes made after this encounter. FLUoxetine (PROzac) 20 mg capsule Take 1 capsule (20 mg total) by mouth daily 09/02/2023 furosemide (LASIX) 40 mg tablet Take 1 tablet (40 mg total) by mouth daily 12/16/2023 added in this encounter Care Teams Visual Display Manager Relationship Specialty Start Date End Date Cuba Larsen MD PCP - General Family Medicine 01/23/22 Chris Mendes MD Referring Physician Cardiology 12/23/21 Keli Orozco, patrol captain Failure Coordinator Transplant 04/15/23 documented as of this encounter
--- OUTSIDE RECORDS SUMMARY | 2024-03-13 01:09 | XMS_ITS | Encounter Summary ---
Author Organization [facility] Healthcare Address [address] [place] [address] Care Team Providers Care Pharmacy Student Name Role Phone Chris Mendes MD Unavailable [phone] Keli Orozco RN Unavailable Unavailable Alysa Newton RN Unavailable [phone] Cuba Larsen MD Primary Care Provider [phone] Reason for Visit * Reason Onset Date Comments Referral Request 02/25/2023 Encounter Details Date Type Department Care Team (Late st Contact Info) Description 02/25/2023 Telephone [facility] Medical Group Family Medicine [address] [place] [address] Cuba Larsen MD [address] [place] [address] Referral Request Social History Tobacco Use [...] on file 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 RINTENDENT WAREHOUSE RINTENDENT WAREHOUSE * Telephone Encounter - Negra Callahan - 02/25/2023 2:34 PM CST Referral Provider Name (if patient is seeing a nurse practitioner or physician assistant therapy aide, list the HEALTH PSYCHOLOGIST/PA, but also their collaborating doctor): Dr Endy Jara Specialty: Urology Address: [address] [place] [address], Zip: [place] [address] Diagnosis Code/Symptom/Reason Patient is being seen: Kidney stones Date of Appointment: 03.02.23 NPI#: [id number] Tax ID#: [id number] Is insurance in chart up to date? Yes Additional Comments: None Does message need to be routed? Yes-Action Needed RINTENDENT WAREHOUSE documented in this encounter Plan of Treatment Not on file documented as of this encounter Visit Diagnoses Diagnosis Kidney stones- Primary Calculus of kidney documented in this encounter Care Teams Pharmacy Student Relationship Specialty Start Date End Date Cuba Larsen MD [address] [facility] [address] [place] [address] PCP - General Family Medicine 01/23/22 Chris Mendes MD Referring Physician Cardiology 12/23/21 Keli Orozco, customer service attendantInstrument Repair Specialist Cardiology 12/23/21 04/15/23 Alysa Newton, RN [address] [address] Instrument Repair Specialist Cardiology 12/23/21 documented as of this encounter
--- OUTSIDE RECORDS SUMMARY | 2024-03-13 01:09 | XMS_ITS | Encounter Summary ---
Author Organization [facility] Medical Group Address [address] [facility] [facility] [address] [place] [address] Care Team Providers Care Liberal Arts And Humanities Chair Name Role Phone Chris Mendes MD Unavailable [phone] Keli Orozco RN Unavailable Unavailable Alysa Newton RN Unavailable [phone] Cuba Larsen MD Primary Care Provider [phone] Reason for Visit * Reason Onset Date Comments Referral Request 12/04/2022 Encounter Details Date Type Department Care Team (Late st Contact Info) Description 12/04/2022 Telephone [facility] Medical [facility] Family Medicine [address] [facility] [address] [place] [address] Cuba Larsen MD [address] [place] [address] Referral Request Social History Tobacco Use Types [...] on file 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 Referral was faxed and attached by Dolores yesterday. Left a voicemail letting them know to give the office a call back ifthey are needing this faxed again. * Telephone Encounter - Dolores Keys - 12/04/2022 3:07 PM CDT Order created. Referral will be worked in the order it was received. * Telephone Encounter - Leandra Jean - 12/04/2022 11:16 AM CDT Referral Provider Name (if patient is seeing a nurse practitioner or physician inventory assistant, list the MEN'S LEATHER DRESS BELT MAKER/PA, but also their collaborating doctor): Faby Manriquez Specialty: Optometry Address: [address] [place] [address], Zip: [place] [address] Fax: Pt didn't have Diagnosis Code/Symptom/Reason Patient is being seen: Yearly Exam Date of Appointment: 12.10.22 NPI#: [id number] Tax ID#: [id number] Is insurance in chart up to date? yes Caller???s Callback #: [phone] Additional Comments: Patient's previous doctor is no longer with the office and she had to establish with a new provider and is needing a new referral. Does message need to be routed? Yes-Action Needed documented in this encounter Plan of Treatment Not on file documented as of this encounter Visit Diagnoses Diagnosis Routine eye exam- Primary Examination of eyes and vision documented in this encounter Care Teams Liberal Arts And Humanities Chair Relationship Specialty Start Date End Date Cuba Larsen MD [address] [facility] [address] [place] [address] PCP - General Family Medicine 01/23/22 Chris Mendes MD Referring Physician Cardiology 12/23/21 Keli Orozco, information technology security analystHotel Reservation Agent Cardiology 12/23/21 04/15/23 Alysa Newton, RN [address] [facility] [address] [place] [address] Hotel Reservation Agent Cardiology 12/23/21 documented as of this encounter
--- OUTSIDE RECORDS SUMMARY | 2024-03-13 01:09 | XMS_ITS | Encounter Summary ---
Author Organization [facility] Healthcare Address [address] [place] [address] Care Team Providers Care Candy Decorator Name Role Phone Chris Mendes MD Unavailable [phone] Keli Orozco RN Unavailable Unavailable Alysa Newton RN Unavailable [phone] Cuba Larsen MD Primary Care Provider [phone] Encounter Details Date Type Department Care Team (Late st Contact Info) Description 02/12/2023 Telephone [facility] Medical Group Family Medicine [address] [place] [phone] Cuba Larsen MD [address] [place] [address] Social History Tobacco Use Types Packs/Day [...] on file 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 Gender Identity Not on file Sexual Orientation Not on file documented as of this encounter Miscellaneous Notes * Telephone Encounter - Azucena Velasquez - 02/13/2023 9:21 AM CST Appt scheduled for 02/26/2023 NT SUPPORT ADMINISTRATOR * Telephone Encounter - Azucena Velasquez - 02/12/2023 4:20 PM CST Called [facility] to have Prema Pearce call the office to reschedule her missed EE appt which needs migdalia completed before the end of the year NT SUPPORT ADMINISTRATOR documented in this encounter Plan of Treatment Not on file documented as of this encounter Visit Diagnoses Not on filedocumented in this encounter Care Teams Candy Decorator Relationship Specialty Start Date End Date Cuba Larsen MD [address] [address] PCP - General Family Medicine 01/23/22 Chris Mendes MD Referring Physician Cardiology 12/23/21 Keli Orozco, high school combination teacherHealth Editor Cardiology 12/23/21 04/15/23 Alysa Newton, RN [address] [address] Health Editor Cardiology 12/23/21 documented as of this encounter
--- OUTSIDE RECORDS SUMMARY | 2024-03-13 01:09 | XMS_ITS | Encounter Summary ---
Author Organization [facility] Healthcare Address [address] [place] [address] Care Team Providers Care Cad Manager Name Role Phone Chris Mendes MD Unavailable [phone] Keli Orozco RN Unavailable Unavailable Alysa Newton RN Unavailable [phone] Cuba Larsen MD Primary Care Provider [phone] Reason for Visit * Reason Onset Date Comments Chart Review 02/11/2023 [facility] Quality lucero t review, patient not contacted. Encounter Details Date Type Department Care Team ([facility] st Contact Info) Description 02/11/2023 Telephone [facility] Accountable Care Organization [address] [place] [address] Rupinder Vela [address] [place] [address] [address] [place] [address] Chart Review ([facility] Quality chart review, patient not contacted. /) Social History Tobacco Use Types Packs/Day Years [...] you are drinking? 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 Gender Identity Not on file Sexual Orientation Not on file documented as of this encounter Plan of Treatment Not on file documented as of this encounter Visit Diagnoses Not on filedocumented in this encounter Care Teams Cad Manager Relationship Specialty Start Date End Date Cuba Larsen MD [address] [facility] [address] [place] [address] PCP - General Family Medicine 01/23/22 Chris Mendes MD Referring Physician Cardiology 12/23/21 Keli Orozco, town managerSong Plugger Cardiology 12/23/21 04/15/23 Alysa Newton, RN [address] [facility] [address] [place] [address] Song Plugger Cardiology 12/23/21 documented as of this encounter
--- OUTSIDE RECORDS SUMMARY | 2024-03-13 01:09 | XMS_ITS | Encounter Summary ---
Author Organization [facility] Healthcare Address [address] [place] [address] Care Team Providers Care Textile Pin Worker Name Role Phone Chris Mendes MD Unavailable [phone] Keli Orozco RN Unavailable Unavailable Alysa Newton RN Unavailable [phone] Cuba Larsen MD Primary Care Provider [phone] Encounter Details Date Type Department Care Team (Late st Contact Info) Description 01/05/2023 Telephone [facility] Heart [address] [address] Mailstop [phone] [place] [address] Ita Mcdonough Social History Tobacco Use Types Packs/Day Years [...] on file 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 Asking for cardiac clearance for future teeth cleaning and possible tooth extraction. No date set yet. Fax number [phone]. Will review with Dr Mendes 01/06/23: Dr Mendes gave instructions for patient to hold Eliquis for 2 days prior to procedure and can restart the day after. Successfully faxed cardiac clearance form to [facility] * Telephone Encounter - Ita Mcdonough - 01/05/2023 2:51 PM CDT Hanh from [facility] called and stated that the PT is taking Eliquis and she wants toknow if it is okay to work on the teeth and possibly have an extraction. Please CB at [phone], option 3 documented in this encounter Plan of Treatment Not on file documented as of this encounter Visit Diagnoses Not on filedocumented in this encounter Care Teams Textile Pin Worker Relationship Specialty Start Date End Date Cuba Larsen MD [address] [facility] [address] [place] [address] PCP - General Family Medicine 01/23/22 Chris Mendes MD Referring Physician Cardiology 12/23/21 Keli Orozco, furniture sales associateBody Trimmer Upholsterer Cardiology 12/23/21 04/15/23 Alysa Newton, RN [address] [address] Body Trimmer Upholsterer Cardiology 12/23/21 documented as of this encounter
--- OUTSIDE RECORDS SUMMARY | 2024-03-13 01:09 | XMS_ITS | Encounter Summary ---
Author Organization [facility] Address [address] [facility] [address] [place] [address] Care Team Providers Care Supervisor Stage Carpentry Name Role Phone Chris Mendes MD Unavailable [phone] Keli Orozco RN Unavailable Unavailable Alysa Newton RN Unavailable [phone] Cuba Larsen MD Primary Care Provider [phone] Reason for Visit * Reason Onset Date Comments Authorization/Certification 10/24/2022 Encounter Details Date Type Department Care Team (Late st Contact Info) Description 10/24/2022 Telephone [facility] Family Medicine [address] [facility] [address] [place] [address] Cuba Larsen MD [address] [place] [address] Authorization/Certific ation Social History Tobacco Use Types Packs/Day Years [...] on file 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 Gender Identity Not on file Sexual Orientation Not on file documented as of this encounter Miscellaneous Notes * Telephone Encounter - Ivelisse Lafleur - 10/27/2022 7:43 AM CDT Order,recent imaging and insurance authorization information faxed to [facility] @ [phone] * Telephone Encounter - Jerome Rascon - 10/24/2022 1:36 PM CDT Authorization/Certification Type of Auth/Cert Needed: Pre- Certification for Test Type of caller:Facility Type of test needed (CPT code if available): 7416 Reason for test or diagnosis (diagnosis code if available):(M54.6) M47.814) Is insurance in chart accurate? yes Facility name: [facility] Facility NPI# (if available): [id number] Facility phone#: [phone] Facility fax#: [phone] Date test is scheduled: 10/30/22 Caller's Callback #: [phone] Additional Comments:!! they would like patients MRI orders faxed along with the authorization Does message need to be routed?Yes-Action Needed documented in this encounter Plan of Treatment Not on file documented as of this encounter Visit Diagnoses Not on filedocumented in this encounter Care Teams Supervisor Stage Carpentry Relationship Specialty Start Date End Date Cuba Larsen MD [address] [facility] [address] [place] [address] PCP - General Family Medicine 01/23/22 Chris Mendes MD Referring Physician Cardiology 12/23/21 Keli Orozco, animal control specialistSexual Assault Nurse Cardiology 12/23/21 04/15/23 Alysa Newton, RN [address] [address] Sexual Assault Nurse Cardiology 12/23/21 documented as of this encounter
--- OUTSIDE RECORDS SUMMARY | 2024-03-13 01:09 | XMS_ITS | Encounter Summary ---
Author Organization [facility] Address [address] [facility] [address] [place] [address] Care Team Providers Care Client Analyst Name Role Phone Chris Mendes MD Unavailable [phone] Keli Orozco RN Unavailable Unavailable Alysa Newton RN Unavailable [phone] Cuba Larsen MD Primary Care Provider [phone] Reason for Referral * Diagnostic Imaging (Routine) - Closed Specialty Diagnoses / Procedures Referred By Indra t Referred To Contact Diagnoses Acute midline thoracic back pain Procedures XR Spine Thoracic 3 V[address] Diane Sheriff PA [address] [place] [address] Phone: tel: fax: [address] [address] Referral ID Status Reason Start Date Expiration Date Visits Re quested Visits Authorized [id number] Closed 10/09/2022 11/08/2023 1 1 Reason for Visit * Reason Comments Back Pain Ongoing back pain Encounter Details Date Type Department Care Team (Late st Contact Info) Description 10/09/2022 1:30 PM CDT Office Visit [facility] Family Medicine [address] [phone] Diane Sheriff, PA [address] [facility] [address] [place] [address] Acute midline thoracic back pain (Primary Dx) Social History Tobacco Use Types [...] on file 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 Gender Identity Not on file Sexual Orientation Not on file documented as of this encounter Last Filed Vital Signs Vital Sign Reading Time Taken Comments Blood Pressure 122/80 10/09/2022 1:24 PM CDT Pulse 65 10/09/2022 1:24 PM CDT Temperature 36.6 ??C (97.8 ??F) 10/09/2022 1:24 PM CD T Respiratory Rate 18 10/09/2022 1:24 PM CDT Oxygen Saturation 97% 10/09/2022 1:24 PM CDT Inhaled Oxygen Concentration - - Weight 80.6 kg (177 lb 12.8 oz) 10/09/2022 1:24 PM CDT Height 154.9 cm (5' 1 ) 10/09/2022 1:24 PM CDT Body Mass Index 33.6 10/09/2022 1:24 PM CDT documented in this encounter Ordered Prescriptions Prescription Sig Dispense Quantity Refills Last Filled Start Date End Date zolpidem (AMBIEN) 10 mg tablet Take 1 tablet (10 mg total) by mouth nightly as needed for sleep for sleep 90 tablet 10/09/2022 3 cyclobenzaprine (FLEXERIL) 5 mg tabletIndications: Acute midline thoracic back pain Take 1 tablet (5 mg total) by mouth 3 (three) times a day as needed for muscle spasms 30 tablet 10/09/2022 3 traMADoL (ULTRAM) 50 mg tabletIndications: Acute midline thoracic back pain Take 1 tablet (50 mg total) by mouth every 6 (six) hours as needed for pain 30 tablet 10/09/2022 4 documented in this encounter Progress Notes * Diane Sheriff, RACHID - 10/09/2022 1:30 PM CDT Images from the original note were not included. Subjective/Objective Visit date: 10/09/2022 Patient ID: Prema Pearce is a 82 y.o. female. Chief Complaint Chief Complaint Patient presents with Back Pain Ongoing back pain Current Outpatient Medications: ALPRAZolam (XANAX) 0.5 mg [...] capsule, Take by mouth, Disp: , Rfl: dapagliflozin propanediol (FARXIGA) 5 mg tablet, Take 1 tablet (5 mg total) by mouth daily, Disp: 30 tablet, Rfl: 5 Eliquis 5 mg tablet, TAKE 1 TABLET BY MOUTH TWICE A DAY, Disp: 60 tablet, Rfl: 11 FLUoxetine (PROzac) 20 mg capsule, TAKE 1 CAPSULE BY MOUTH EVERY DAY WITH 40MG CAPSULE, Disp: 90 capsule, Rfl: 1 furosemide (LASIX) 40 mg tablet, Take 1 tablet (40 mg total) by mouth as needed (shortness of breath, lower extremity or abdominal swelling, or weight gain of 3 lbs or more in 1 day), Disp: 90 tablet, Rfl: 2 levothyroxine (SYNTHROID) 50 mcg tablet, TAKE 1 TABLET BY MOUTH EVERY DAY, Disp: 90 tablet, Rfl: 0 loratadine (CLARITIN) 10 mg tablet, Take 1 tablet (10 mg total) by mouth daily as needed for allergies, Disp: 90 tablet, Rfl: 1 losartan (COZAAR) 100 mg tablet, TAKE 1 TABLET BY MOUTH EVERY DAY, Disp: 90 tablet, Rfl: 3 metFORMIN (GLUCOPHAGE) 500 mg tablet, TAKE 1 TABLET BY MOUTH TWICE A DAY WITH MEALS, Disp: 180 tablet, Rfl: 0 jxofnclu-ojp-yqhz-FA-lutein 8 mg iron-400 mcg-300 mcg tablet, Take by mouth, Disp: , Rfl: rosuvastatin (CRESTOR) 20 mg tablet, TAKE 1 TABLET BY MOUTH EVERY DAY, Disp: 90 tablet, Rfl: 3 spironolactone (ALDACTONE) 25 mg tablet, TAKE 1 TABLET (25 MG TOTAL) BY MOUTH DAILY., Disp: 90 tablet, Rfl: 3 cyclobenzaprine (FLEXERIL) 5 mg tablet, Take 1 tablet (5 mg total) by mouth 3 (three) times a day as needed for muscle spasms, Disp: 30 tablet, Rfl: 0 glipiZIDE (GLUCOTROL) 10 mg tablet, Take 1 tablet (10 mg total) by mouth 2 (two) times a day beforebreakfast and lunch (Patient not taking: Reported on 10/09/2022), Disp: 180 tablet, Rfl: 1 predniSONE (DELTASONE) 20 mg tablet, Take 1 tablet (20 mg) by mouth 2 (two) times a day (Patient not taking: Reported on 08/13/2022), Disp: , Rfl: traMADoL (ULTRAM) 50 mg tablet, Take 1 tablet (50 mg total) by mouth every 6 (six) hours as needed for pain, Disp: 30 tablet, Rfl: 0 zolpidem (AMBIEN) 10 mg tablet, Take 1 tablet (10 mg total) by mouth nightly as needed for sleep for sleep, Disp: 90 tablet, Rfl: 0 Allergies Allergen Reactions Amlodipine Shortness of breath Prasanth Inhibitors Cough Reaction: COUGH, Citalopram Lisinopril Lisinopril-Hydrochlorothiazide Dizziness and Nausea only Dizzy, nauseated HPI Pt last seen in july per dr. Larsen for some left UE numbness/tingling and he ordered a C spine. These symptoms have now resolved. She also c/o RT shoulder pain which has persisted over the posterior aspect. Her xray revealed: Moderate to severe C3-C7 degenerative disc disease with multilevel cervical facet and uncovertebral osteoarthritis. She has been going to PT and has improved with regards to the neck pain. Last week at PT she did different exercises and she noted mid back pain after that to the point she can't stand to wear a bra. This was a new area of pain for her. Used ice/heat and went to in [place] and was told it was muscular . They prescribed lidocaine patches but she was unable to get these. Taking tylenol for pain.On eliquis and can't take NSAIDS. Review of Systems Constitutional: Negative for chills and fever. Musculoskeletal: Positive for arthralgias, back pain and neck pain. See HPI Skin: Negative for rash. Neurological: Negative for weakness and numbness. Vitals BP 122/80 (BP Location: Right arm, Patient Position: Sitting) Pulse 65 Temp 36.6 ??C (97.8 ??F) (Temporal) Resp 18 Ht 154.9 cm (5' 1 ) Wt 80.6 kg (177 lb 12.8 oz) SpO2 97% BMI 33.60 kg/m?? Physical Exam Constitutional: General: She is not in acute distress. Appearance: Normal appearance. She is obese. Cardiovascular: Rate and Rhythm: Normal rate. Pulmonary: Effort: Pulmonary effort is normal. Musculoskeletal: Thoracic back: Spasms (R>L) present. No deformity or bony tenderness. Normal range of motion. Right lower leg: No edema. Left lower leg: No edema. Skin: Findings: No rash. Neurological: Mental Status: She is alert and oriented to person, place, and time. Psychiatric: Mood and Affect: Mood normal. Behavior: Behavior normal. Diagnoses and all orders for this visit: Acute midline thoracic back pain (Primary) Comments: flexeril, tramadol as directed, cont tylenol, can use salon PAS patches OTC, ice, heat, check plainfims to r/o compression deformity Orders: - traMADoL (ULTRAM) 50 mg tablet; Take 1 tablet (50 mg total) by mouth every 6 (six) hours as needed for pain - cyclobenzaprine (FLEXERIL) 5 mg tablet; Take 1 tablet (5 mg total) by mouth 3 (three) times a dayas needed for muscle spasms - XR Spine Thoracic 3 Vw; Future Other orders - zolpidem (AMBIEN) 10 mg tablet; Take 1 tablet (10 mg total) by mouth nightly as needed for sleep for sleep Return if symptoms worsen or fail to improve. Diane Sheriff PA-C documented in this encounter Plan of Treatment Not on file documented as of this encounter Results * XR Spine Thoracic [...] ??Moderate to severe multilevel disc space narrowing. ??Tgrp-si-oyfkzpvp multilevel facet arthropathy. ??On the frontal view, [...] 9:58 PM - Electronically signed by ??Frank Minaya M.D. D: ??10/11/2022 9:58 PM T: Report ID: [id number] Reading Location: ??[id number] Procedure Note Frank Minaya MD - 10/11/2022 [...] change. Moderate tosevere multilevel disc space narrowing. Dgkc-vy-ydxjtffx multilevel facet arthropathy. On the frontal view, [...] signed by Frank WHITE T: Report ID: [id number] Reading Location: [id number] Diane Marquis IMG XR PROCEDURES Final Result documented in this encounter Visit Diagnoses Diagnosis Acute midline thoracic back pain- Primary Acute midline thoracic back pain documented in this encounter Discontinued Medications Medication Sig Discontinue Reason Start Date End Da te acetaminophen (TYLENOL) 500 mg tablet Take 2 tablets (1,000 mg total) by mouth as needed for pain When Needed Other 10/09/2022 zolpidem (AMBIEN) 10 mg tabletIndications:Sleep disturbance TAKE 1 TABLET BY MOUTH NIGHTLY NEEDED FOR SLEEP Reorder 07/02/2022 10/09/2022 documented as of this encounter Care Teams Client Analyst Relationship Specialty Start Date End Date Cuba Larsen MD [address] [facility] [address] [place] [address] PCP - General Family Medicine 01/23/22 Chris Mendes MD Referring Physician Cardiology 12/23/21 Keli Orozco, machine operator assistantGrades 6 Through 8 Teacher Cardiology 12/23/21 04/15/23 Alysa Newton, RN [address] [facility] [address] [place] [address] Grades 6 Through 8 Teacher Cardiology 12/23/21 documented as of this encounter
--- OUTSIDE RECORDS SUMMARY | 2024-03-13 01:09 | XMS_ITS | Encounter Summary ---
Author Organization [facility] Healthcare Address [address] [place] [address] Care Team Providers Care Housing And Residence Life Director Name Role Phone Chris Mendes MD Unavailable [phone] Keli Orozco RN Unavailable Unavailable Alysa Newton RN Unavailable [phone] Cuba Larsen MD Primary Care Provider Encounter Details Date Type Department Care Team (Late st Contact Info) Description 10/24/2022 Telephone [facility] Transplant Heart [address] [address] Mailstop [phone] [place] [address] Maryann Faye Social History Tobacco Use Types Packs/Day Years [...] on file 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 documented in this encounter Plan of Treatment Not on file documented as of this encounter Visit Diagnoses Not on filedocumented in this encounter Discontinued Medications Medication Sig Discontinue Reason Start Date End Da te carvediloL (COREG) 12.5 mg tablet Take 1 tablet (12.5 mg total) by mouth 2 (two) times a day with meals Reorder 07/28/2022 10/24/2022 documented as of this encounter Care Teams Housing And Residence Life Director Relationship Specialty Start Date End Date Cuba Larsen MD [address] [address] PCP - General Family Medicine 01/23/22 Chris Mendes MD Referring Physician Cardiology 12/23/21 Keli Orozco, compound specialistCommunity Services Coordinator Cardiology 12/23/21 04/15/23 Alysa Newton, ARMANI [address] [address] Community Services Coordinator Cardiology 12/23/21 documented as of this encounter
--- OUTSIDE RECORDS SUMMARY | 2024-03-13 01:09 | XMS_ITS | Encounter Summary ---
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
--- OUTSIDE RECORDS SUMMARY | 2024-03-13 01:09 | XMS_ITS | Encounter Summary ---
Author Organization [facility] Address [address] [facility] [address] [place] [address] Care Team Providers Care Site Physician Name Role Phone Chris Mendes MD Unavailable [phone] Keli Orozco RN Unavailable Unavailable Alysa Newton RN Unavailable [phone] Cuba Larsen MD Primary Care Provider Reason for Visit * Reason Onset Date Comments Test Results 08/15/2022 Encounter Details Date Type Department Care Team (Late st Contact Info) Description 08/15/2022 Telephone [facility] Medical [facility] Family Medicine [address] [facility] [address] [place] [address] Cuba Larsen MD [address] [place] [id number] Test Results Social History Tobacco Use Types Packs/Day Years [...] on file 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 [facility] Did provider dictate result yet? Yes Where were results relayed from in the chart? Imaging Tab Caller's Callback #: [phone] Additional Questions/Comments: Results relayed to patient, she voices understanding. She would liketo take therapy at [facility] in [place]. She was asking if the essence referral would be complete priorto her starting therapy. Please advise. Does message need to be routed?Yes-Action Needed documented in this encounter Plan of Treatment Not on file documented as of this encounter Visit Diagnoses Diagnosis Cervical neck pain with evidence of disc disease- Primary Other and unspecified disc disorder of cervical region documented in this encounter Care Teams Site Physician Relationship Specialty Start Date End Date Cuba Larsen MD [address] [facility] [address] [place] [address] PCP - General Family Medicine 01/23/22 Chrsi Mendes MD Referring Physician Cardiology 12/23/21 Keli Orozco, gravure press operatorNaval Science Teacher Cardiology 12/23/21 04/15/23 Alysa Newton, ARMANI [address] [facility] [address] [place] [address] Naval Science Teacher Cardiology 12/23/21 documented as of this encounter
--- OUTSIDE RECORDS SUMMARY | 2024-03-13 01:09 | XMS_ITS | Encounter Summary ---
Author Organization [facility] Address [address] [place] [address] Phone Care Team Providers Care Nail Assembly Machine Operator Name Role Phone Chris Mendes MD Unavailable [phone] Ce Larsen MD Primary Care Provider [phone] Keli Orozco RN Unavailable Unavailable Reason for Visit * Consultation (Routine) - Closed Specialty Diagnoses / Procedures Referred By Indra muñoz Referred To Contact Cardiology Diagnoses Mitral valve prolapse Ce Larsen MD [address] [address] Phone: tel: fax: Chris Mendes MD [address] [address] Phone: tel: fax: Referral ID Status Reason Start Date Expiration Date V isits Requested Visits Authorized [id number] Closed Specialty Services Required 01/23/2023 01/25/2024 12 12 Encounter Details Date Type Department Care Team (Late st Contact Info) Description 07/27/2023 2:40 PM CDT Office Visit [facility] Cardiology [address] 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 Gender Identity Not on file Sexual Orientation Not on file documented as of this encounter Last Filed Vital Signs Vital Sign Reading Time Taken Comments Blood Pressure 137/87 07/27/2023 2:54 PM CDT Pulse 83 07/27/2023 2:54 PM CDT Temperature - - Respiratory Rate - - Oxygen Saturation 95% 07/27/2023 2:54 PM CDT Inhaled Oxygen Concentration - - Weight 85.7 kg (189 lb) 07/27/2023 2:54 PM CDT Height 154.9 cm (5' 1 ) 07/27/2023 2:54 PM CDT Body Mass Index 35.71 07/27/2023 2:54 PM CDT documented in this encounter Patient Instructions * Patient Instructions* Mary Qiu RN - 07/27/2023 2:40 PM CDT For questions, concerns, or updates, please call the Heart Failure office at . Thanks, Keli- Nurse coordinator for Dr. Mendes PLAN FOR TODAY: Follow up in 6 months No medicine changes documented in this encounter Progress Notes * Chris Mendes MD - 07/27/2023 12:00 AM CDT Date: 07/28/2023 Patient Name: EVAN HODGSON Date of : 1940 Date of Visit: 07/27/2023 INTERVAL HISTORY: Mrs. Hodgson is an 83-year-old woman with a history of a dilated cardiomyopathy with atrial fibrillation, having had a DC cardioversion and sotalol initiated, with amiodarone discontinued, with a history of atrial fibrillation. She was initially treated with rate control until she had a sub massive pulmonary embolus in 2019. She had previously been treated with sotalol. After the PE, she was switched to amiodarone, which was continued until June 2019 when it was stopped because of GI side effects. She had another CVA in 2021, after being off anticoagulation for an elective procedure.She has recovered from those CVAs with minimal sequelae. She has had nonischemic dilated cardiomyopathy with a recovered ejection fraction. Her last ejection fraction in July 2022 was 52%. She has mild aortic stenosis with a valve area of around 1.2 cm?? when last assessed before today, and mild coronary artery disease. Since we saw her last, she has physically been doing reasonably well. She doesher activities of daily living. She is very involved in her islam. They are just having a strawberry festival and she spent a lot of time cleaning strawberries and making some cakes. She lives alone, is able to do her activities of daily living. She has a brother who is very ill and she is very concerned about, but he does not live with her. She has a son who is with her in clinic today, who lives nearby but, again, not with her. She can do her ADLs. She can do her activities around islam, appears to be essentially [place] Heart [employer] class II. She is not complaining of lower extremity edema, chest pain, palpitations, syncope, or near-syncope. She has had no ICD shocks since we saw her last. The remainder of her interim history is unremarkable. REVIEW OF SYSTEMS: All systems reviewed are negative except as indicated above. CARDIAC MEDICATIONS: 1. Carvedilol 12.5 mg p.o. b.i.d. 2. Eliquis 5 mg p.o. b.i.d. 3. Losartan 100 mg p.o. daily. 4. Rosuvastatin 20 mg p.o. at bedtime. 5. Spironolactone 25 mg p.o. daily. 6. Furosemide 40 mg p.o. p.r.n. PHYSICAL EXAMINATION: GENERAL: A well-developed, well-nourished, obese older female, in no acute distress. VITAL SIGNS: Her weight is 189 pounds, up from 183, with a BMI of 35.7. Her blood pressure today was 177/87, although it was substantially lower in the echo lab earlier today. Her pulse was 83 and regular. Her respiratory rate was 18. Her oxygen saturation was 95% on room air, and her temperature is 36.1 degrees centigrade. HEENT: Screening examination is unremarkable. NECK: Neck veins are not distended at 30 degrees. Her carotids are symmetrical and 1+ in volume bilaterally, without bruits. LUNGS: Clear to percussion and auscultation in all lung lopes, without rales, rhonchi, rubs, or wheezes. CARDIAC: Her rhythm is regular. She has a 2/6 systolic ejection murmur at the base. No diastolic murmurs are heard. S1, S2 are normal. ABDOMEN: Examination is benign, without organomegaly or masses. Liver is not palpable, pulsatile, or painful. No hepatojugular reflux. EXTREMITIES: Without clubbing, cyanosis, or edema. NEUROLOGIC: Screening is nonfocal. LYMPHATICS: No lymph nodes are appreciated. SKIN: No skin lesions were noted. PSYCHIATRIC: Mood and affect appropriate. DIAGNOSTICS: Patient had an echocardiogram on the day of the visit which I personally reviewed, which demonstrates normal LV systolic function with an ejection fraction of 66%, up from 52 at her last visit, usingthe biplane Redd's technique. The aortic valve is moderately thickened and some restriction in op ening, but the calculated aortic valve area using the continuity equation was 1.3 cm. The peak gradient was just 22 mmHg, with a mean of 13. RV size and function were normal. There was no pericardialeffusion, with significant mitral anular calcification, but no significant mitral stenosis. ASSESSMENT AND PLAN: Overall, it is our impression the patient seems to be relatively stable from a cardiovascular standpoint. I will continue seeing her on a q.6 month basis, and will be getting echoes on a once-a-year basis to track her aortic stenosis. ELECTRONICALLY SIGNED - 07/29/2023 03:46 PM Chris Mendes M.D. wireless communications engineer Collective Bargaining Specialist, Heart Failure Program EG/ps cc: CE LARSEN MD / / documented in this encounter Plan of Treatment Not on file documented as of this encounter Visit Diagnoses Diagnosis Chronic combined systolic (congestive) and diastolic (congestive) heart failure (HCC)- Primary Acute on chronic systolic CHF (congestive heart failure) (CMS/HCC) (HCC) documented in this encounter Discontinued Medications Medication Sig Discontinue Reason Start Date End Da te cholecalciferol (VITAMIN D-3) 50,000 unit capsule Take 1 capsule (50,000 Units total) by mouth once a week Discontinued by another clinician 07/27/2023 FLUoxetine (PROzac) 20 mg capsuleIndications:Anx iety Take 1 capsule (20 mg total) by mouth daily TAKE 1 CAPSULE BY MOUTH EVERY DAY Discontinued by another clinician 03/17/2023 07/27/2023 traMADoL (ULTRAM) 50 mg tabletIndications:Acut e midline thoracic back pain Take 1 tablet (50 mg total) by mouth every 6 (six) hours as needed for pain Discontinued by another clinician 10/09/2022 07/27/2023 documented as of this encounter Historical Medications * This list may reflect changes made after this encounter. cholecalciferol (VITAMIN D-3) 2000 unit tablet Take by mouth added in this encounter Care Teams Nail Assembly Machine Operator Relationship Specialty Start Date End Date Ce Larsen MD PCP - General Family Medicine 01/23/22 Chris Mendes MD Referring Physician Cardiology 12/23/21 Klei Orozco, body work auto trimmer Failure Coordinator Transplant 04/15/23 documented as of this encounter
--- OUTSIDE RECORDS SUMMARY | 2024-03-13 01:09 | XMS_ITS | Encounter Summary ---
Author Organization [facility] Healthcare Address [address] [place] [address] Care Team Providers Care Auto Damage Adjuster Name Role Phone Chris Mendes MD Unavailable [phone] Cuba Larsen MD Primary Care Provider [phone] Keli Orozco RN Unavailable Unavailable Reason for Visit * Reason Onset Date Comments CARE CUSTOMER CARE SPECIALIST LOTTIE IP 08/12/2023 Kaye Wade ed Follow Up Encounter Details Date Type Department Care Team (Late st Contact Info) Description 08/12/2023 Telephone [facility] Family Medicine [address] [place] [address] Anh Carmona, [place] [address] [place] [address] CARE CUSTOMER CARE SPECIALIST LOTTIE IP ([facility] Declined Follow Up) Social History Tobacco Use Types Packs/Day Years [...] on file 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 documented in this encounter Plan of Treatment Not on file documented as of this encounter Visit Diagnoses Not on filedocumented in this encounter Care Teams Auto Damage Adjuster Relationship Specialty Start Date End Date Cuba Larsen MD PCP - General Family Medicine 01/23/22 Chris Mendes MD Referring Physician Cardiology 12/23/21 Keli Orozco, separator operator shellfish meats Failure Coordinator Transplant 04/15/23 documented as of this encounter
--- OUTSIDE RECORDS SUMMARY | 2024-03-13 01:10 | XMS_ITS | Encounter Summary ---
Author Organization [facility] Address [address] [place] [address] Care Team Providers Care Rhit Name Role Phone Chris Mendes MD Unavailable [phone] Keli Orozco RN Unavailable Unavailable Alysa Newton RN Unavailable [phone] Cuba Larsen MD Primary Care Provider [phone] Reason for Visit * Reason Onset Date Comments Care Clinical Application Manager LOTTIE ED 05/16/2022 Vishnu Expre Care Encounter Details Date Type Department Care Team (Late st Contact Info) Description 05/16/2022 Telephone [facility] Family Medicine [address] [place] [address] Lucila Perkins, JOSE [address] [place] [address] [address] [facility] [address] [place] [address] Care Clinical Application Manager LOTTIE ED ([facility]) Social History Tobacco Use Types Packs/Day Years Used Date Smoking Tobacco: Never Smokeless Tobacco: Never Alcohol Use Standard Drinks/Week Comments Yes 0 (1 standard drink = 0.6 oz pur e alcohol) 1/mo AUDIT-C Answer Date Recorded Q1: How often do you have a drink containing alc ohol? Never 10/21/2021 Average Number of Drinks Not on file 08/08/2 022 Q3: How often do you have si x or more drinks on one occasion? Never 10/21/2021 PHQ-2 Answer Date Recorded PHQ-2 Total Score (If total score is 3 or more points, staff should administer the PHQ-9) 0 02/13/2022 Comments No Sex and Gender Information Value Date Recorded Sex Assigned at Not on file Legal Sex Female 4:20 AM FINANCIAL RISK MANAGER Gender Identity Not on file Sexual Orientation Not on file documented as of this encounter Miscellaneous Notes * Telephone Encounter - Marbella Ortiz - 05/16/2022 12:54 PM CST Patient is scheduled for 05/19/22 NCIAL RISK MANAGER * Telephone Encounter - Lucila Perkins MA - 05/16/2022 10:48 AM FINANCIAL RISK MANAGER Ari, My name is Lucila and I am a Care Clinical Application Manager with the Accountable [facility] Organization. I spoke with patient regarding her recent visit at [facility] for bronchitis. Patient states she is still having quite a bit of rattling in the chest and nasal drainage. Patient would like to know what she can take OTC to help with the nasal congestion. Patient is taking prednisone. Patient also requires a follow up with PCP by to meet [facility]'s 7 day post ED follow up. Thank you, Lucila Perkins, [facility] Care Clinical Application Manager [facility] [phone] NCIAL RISK MANAGER documented in this encounter Plan of Treatment Not on file documented as of this encounter Visit Diagnoses Not on filedocumented in this encounter Care Teams Rhit Relationship Specialty Start Date End Date Cuba Larsen MD [address] [address] PCP - General Family Medicine 01/23/22 Chris Mendes MD Referring Physician Cardiology 12/23/21 Keli Orozco, surface grinder tenderClassroom Paraprofessional Cardiology 12/23/21 04/15/23 Alysa Newton, RN [address] [address] Classroom Paraprofessional Cardiology 12/23/21 documented as of this encounter
--- OUTSIDE RECORDS SUMMARY | 2024-03-13 01:10 | XMS_ITS | Encounter Summary ---
Author Organization [facility] Medical Group Address [address] [place] [address] Care Team Providers Care Radar Scientist Name Role Phone Ryann Galdamez Primary Care Provider [phone] Reason for Visit * Reason Onset Date Comments ACO Quality Outreach 12/17/2021 Encounter Details Date Type Department Care Team (Late st Contact Info) Description 12/17/2021 Telephone [facility] Accountable Care Organization [address] [place] [address] Keli Durham [address] [place] [address] [address] [place] [address] [facility] Quality Outreach Social History Tobacco Use Types Packs/Day Years Used Date Smoking Tobacco: Never Smokeless Tobacco: Never Alcohol Use Standard Drinks/Week Comments Yes 0 (1 standard drink = 0.6 oz pur e alcohol) 1/mo AUDIT-C Answer Date Recorded Q1: How often do you have a drink containing alc ohol? Never 10/21/2021 Average Number of Drinks Not on file 022 Q3: How often do you have si x or more drinks on one occasion? Never 10/21/2021 PHQ-2 Answer Date Recorded PHQ-2 Total Score (If total score is 3 or more points, staff should administer the PHQ-9) 0 10/21/2021 Comments No Sex and Gender Information Value Date Recorded Sex Assigned at Not on file Legal Sex Female 4:20 AM TOPPER PACKER Gender Identity Not on file Sexual Orientation Not on file documented as of this encounter Miscellaneous Notes * Telephone Encounter - Keli Durham - 12/17/2021 12:50 PM CDT [facility] Medication Adherence Outreach Prema Pearce was identified on [facility] medication adherence list for Non- adherence to statin (med filled <80% of calendar year) (MAC). Refill of Rosuvastatin 20 mg tab was due 12/17/21. Patient last filled a 90 day supply. Filled 12/13/21 Keli Durham Patient Outreach Instrument Maker Apprentice [facility] Medical Group-ACO [phone] documented in this encounter Plan of Treatment Not on file documented as of this encounter Visit Diagnoses Not on filedocumented in this encounter Care Teams Radar Scientist Relationship Specialty Start Date End Date Ryann Galdamez PA PCP - General Steel Analyst 04/02/21 01/22/22 documented as of this encounter
--- OUTSIDE RECORDS SUMMARY | 2024-03-13 01:10 | XMS_ITS | Encounter Summary ---
Author Organization [facility] Medical [facility] Address [address] [place] [address] Care Team Providers Care Warp Clamper Name Role Phone Ryann Galdamez Primary Care Provider [phone] Encounter Details Date Type Department Care Team (Late st Contact Info) Description 09/04/2021 Telephone [facility] Family Medicine [address] [place] [address] Ryann Galdamez PA [facility] [place] [address] Social History Tobacco Use Types Packs/Day Years Used Date Smoking Tobacco: Never Smokeless Tobacco: Never Alcohol Use Standard Drinks/Week Comments Yes 0 (1 standard drink = 0.6 oz pur e alcohol) 1/mo AUDIT-C Answer Date Recorded Q1: How often do you have a drink containing alc ohol? Never 06/17/2021 Average Number of Drinks Not on file 022 Q3: How often do you have si x or more drinks on one occasion? Never 06/17/2021 PHQ-2 Answer Date Recorded PHQ-2 Total Score (If total score is 3 or more points, staff should administer the PHQ-9) 0 06/17/2021 Comments No Sex and Gender Information Value Date Recorded Sex Assigned at Not on file Legal Sex Female 4:20 AM ORE MINER Gender Identity Not on file Sexual Orientation Not on file documented as of this encounter Miscellaneous Notes * Addendum Note - Ryann Galdamez PA - 09/05/2021 8:00 AM CDTAddended by: RYANN GALDAMEZ on: 09/05/2021 08:00 AM Modules accepted: Orders * Telephone Encounter - Ryann Galdamez PA - 09/05/2021 8:00 AM CDT referral entered for Dr. Araceli Salcedo. * Telephone Encounter - Dash Anderson MA - 09/04/2021 3:48 PM CDT Patient need requesting referral to Neurologist. Dr. 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
--- OUTSIDE RECORDS SUMMARY | 2024-03-13 01:10 | XMS_ITS | Encounter Summary ---
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 States she doesn't really feel bad, just no energy. Stated if she starts feeling like she cant take care of her self or worsening to go to ED. * Telephone Encounter - Denisa Mustafa - 09/03/2021 3:46 PM CDT PT reports that BP is running low 81/56 since dosage of medication was changed early August. Pt feelsvery weak, low energy and asks for call back documented in this encounter Plan of Treatment Not on file documented as of this encounter Visit Diagnoses Not on filedocumented in this encounter Discontinued Medications Medication Sig Discontinue Reason Start Date End Da te chlorthalidone 25 mg tablet Take 1 tablet (25 mg total) by mouth daily 07/30/2021 09/03/2021 documented as of this encounter Care Teams Stave Log Ripsaw Operator Relationship Specialty Start Date End Date Ryann Galdamez PA PCP - General Food Service Associate 04/02/21 01/22/22 documented as of this encounter
--- OUTSIDE RECORDS SUMMARY | 2024-03-13 01:10 | XMS_ITS | Encounter Summary ---
Author Organization [facility] Address [address] [facility] [address] [facility] [address] [place] [address] Care Team Providers Care Natural Resources Engineer Name Role Phone Ryann Galdamez Primary Care Provider [phone]- [phone] Reason for Visit * Reason Comments Follow-up Encounter Details Date Type Department Care Team (Late st Contact Info) Description 10/21/2021 11:00 AM CDT Office Visit [facility] Family Medicine [address] [place] [address] Ryann Galdamez PA [facility] [place], [place] [id number] Anxiety (Primary Dx); Iron deficiency anemia, unspecified iron deficiency anemia type; Essential hypertension; Type 2 diabetes mellitus without complication, without long-term current use of insulin (CMS/HCC) (HCC); Vitamin D deficiency; Hyperlipidemia, unspecified hyperlipidemia type; Hypothyroidism, unspecified type; AYAD on CPAP; Moderate episode of recurrent major depressive disorder (HCC); Seasonal allergic rhinitis, unspecified trigger; Need for vaccination with 13-polyvalent pneumococcal conjugate vaccine Social History Tobacco Use Types Packs/Day Years [...] on file Legal Sex Female 4:20 AM [employer]ARF BU[employer] Gender Identity Not on file Sexual Orientation Not on file documented as of this encounter Last Filed Vital Signs Vital Sign Reading Time Taken Comments Blood Pressure 120/70 10/21/2021 11:08 AM CDT Pulse 83 10/21/2021 11:08 AM CDT Temperature 37.1 ??C (98.7 ??F) 10/21/2021 11:08 AM C DT Respiratory Rate - - Oxygen Saturation 96% 10/21/2021 11:08 AM CDT Inhaled Oxygen Concentration - - Weight 71.2 kg (157 lb) 10/21/2021 11:08 AM CDT Height 154.9 cm (5' 1 ) 10/21/2021 11:08 AM CDT Body Mass Index 29.66 10/21/2021 11:08 AM CDT documented in this encounter Ordered Prescriptions Prescription Sig Dispense Quantity Refills Last Filled Start Date End Date loratadine (CLARITIN) 10 mg tablet Take 1 tablet (10 mg total) by mouth daily as needed for allergies 90 tablet 1 10/21/2021 3 FLUoxetine (PROzac) 20 mg capsuleIndications :Anxiety Take 60mg daily (one 40mg and one 20mg at a time). 90 capsule 1 10/21/2021 3 documented in this encounter Progress Notes * Ryann Galdamez PA - 10/21/2021 11:00 AM CDT Images from the original note were not included. Chief Complaint Follow-up HPI Here for follow-up of multiple chronic problems. Sugar running 100-130s, sometimes in the 130s with eating ice cream. Appetite is better, has been picking up weight, which she reports is welcomed. taking glipizide sometimes in the afternoon, sometimes not using it. Working with cv - bp fluctuating systolic 120-140s. Waking up feeling unrested and sometimes a little agitated. Still having a lot of anxiety. Getting out and going out with friends, has decorated her house. Headaches in evenings in back of head, tylenol resolves them. Doesn't have high bp at the time. Continues working with hematology, hgb back to normal Has f/u ct kidneys with dr holguin Yesterday stayed home due to fatigue, no fever. Considering a new relationship and notes this has been overwhelming. She reports that he is pursuing her, it is an old friend from growing up. She reports that he is wanting more of a physical relationship than she is desiring. She has also been having difficulty with postnasal drainage and rhinitis. She is not using any rnuw-pxv-zeogpqk medication. She has not had any fevers or chills. She has not had any COVID-19 exposure. Allergies as of 10/21/2021 - Reviewed 10/21/2021 Allergen Reaction Noted ??? Amlodipine Shortness of breath 07/21/2019 ??? Prasanth inhibitors Cough ??? Citalopram ??? Lisinopril ??? Lisinopril-hydrochlorothiazide Dizziness and Nausea only 05/13/2021 Outpatient Encounter Medications as of 10/21/2021 Medication Sig Dispense Refill ??? acetaminophen (TYLENOL) 500 mg tablet Take 1,000 mg by mouth as needed for pain When Needed ??? ALPRAZolam (XANAX) 0.5 mg tablet Take 0.5 tablets (0.25 mg total) by mouth 2 (two) times a day as needed for anxiety 60 tablet 0 ??? CALCIUM CARBONATE ORAL Take 600 mg by mouth 2 (two) times a day ??? carvediloL (COREG) 25 mg tablet TAKE 1 TABLET BY MOUTH TWICE A DAY WITH FOOD 180 tablet 3 ??? dilTIAZem CD/XR/XT (Cardizem CD) 120 mg 24 hr capsule Take 1 capsule (120 mg total) by mouth 2 (two) times a day 60 capsule 11 ??? Eliquis 5 mg tablet TAKE 1 TABLET BY MOUTH TWICE A DAY 60 tablet 11 ??? FLUoxetine (PROzac) 40 mg capsule Take 1 capsule (40 mg total) by mouth daily 90 capsule 3 ??? furosemide (LASIX) 40 mg tablet Take 0.5 tablets (20 mg total) by mouth daily 30 tablet 11 ??? glipiZIDE (GLUCOTROL) 10 mg tablet Take 10 mg by mouth daily ??? levothyroxine (SYNTHROID) 50 mcg tablet Take 1 tablet (50 mcg total) by mouth daily 30 tablet 11 ??? losartan (COZAAR) 100 mg tablet Take 1 tablet (100 mg total) by mouth daily 30 tablet 11 ??? metFORMIN (GLUCOPHAGE) 500 mg tablet Take 1 tablet (500 mg total) by mouth 2 (two) times a day with meals 180 tablet 1 ??? tgixeswd-qjd-tfec-FA-lutein 8 mg iron-400 mcg-300 mcg tablet Take by mouth ??? rosuvastatin (CRESTOR) 20 mg tablet TAKE 1 TABLET BY MOUTH EVERY DAY 90 tablet 3 ??? spironolactone (ALDACTONE) 25 mg tablet Take 1 tablet (25 mg total) by mouth daily 30 tablet 11 ??? zolpidem (AMBIEN) 10 mg tablet Take 1 tablet (10 mg total) by mouth nightly as needed for sleep90 tablet 0 ??? cholecalciferol (VITAMIN D-3) 50,000 unit capsule Take 50,000 Units by mouth once a week ??? FLUoxetine (PROzac) 20 mg capsule Take 60mg daily (one 40mg and one 20mg at a time). 90 capsule1 ??? loratadine (CLARITIN) 10 mg tablet Take 1 tablet (10 mg total) by mouth daily as needed for allergies 90 tablet 1 ??? [DISCONTINUED] busPIRone (BUSPAR) 5 mg tablet TAKE 1 TABLET BY MOUTH THREE TIMES A DAY (Patientnot taking: Reported on 10/21/2021) 270 tablet 3 No facility-administered encounter medications on file as of 10/21/2021. Review of Systems Constitutional: Negative for fatigue, fever and unexpected weight change. HENT: Negative for congestion. Respiratory: Negative for cough, chest tightness and shortness of breath. Cardiovascular: Negative for chest pain and palpitations. Gastrointestinal: Negative for abdominal pain. Genitourinary: Negative for difficulty urinating and dysuria. Musculoskeletal: Negative for arthralgias and back pain. Skin: Negative for color change. Neurological: Negative for dizziness. Hematological: Does not bruise/bleed easily. Psychiatric/Behavioral: Positive for dysphoric mood and sleep disturbance. Negative for confusion. The patient is nervous/anxious. Vitals: 10/21/21 1108 BP: 120/70 BP Location: Left arm Patient Position: Sitting Pulse: 83 Temp: 37.1 ??C (98.7 ??F) TempSrc: Oral SpO2: 96% Weight: 71.2 kg (157 lb) Height: 154.9 cm (5' 1 ) Physical Exam Vitals and nursing note reviewed. Constitutional: General: She is not in acute distress. Appearance: Normal appearance. She is not ill-appearing, toxic-appearing or diaphoretic. HENT: Head: Normocephalic and atraumatic. Right Ear: Tympanic membrane, ear canal and external ear normal. Left Ear: Tympanic membrane, ear canal and external ear normal. Nose: Nose normal. Mouth/Throat: Mouth: Mucous membranes are moist. Pharynx: Oropharynx is clear. Eyes: Extraocular Movements: Extraocular movements intact. Cardiovascular: Rate and Rhythm: Normal rate. Heart sounds: Murmur heard. No friction rub. No gallop. Pulmonary: Effort: Pulmonary effort is normal. No respiratory distress. Breath sounds: Normal breath sounds. No stridor. No wheezing, rhonchi or rales. Chest: Chest wall: No tenderness. Musculoskeletal: General: Normal range of motion. Cervical back: Normal range of motion. Skin: General: Skin is warm and dry. Neurological: Mental Status: She is alert and oriented to person, place, and time. Psychiatric: Mood and Affect: Mood normal. Behavior: Behavior normal. Thought Content: Thought content normal. Assessment/Plan Diagnoses and all orders for this visit: Anxiety (F41.9) (Primary) Assessment & Plan: We will increase her Prozac from 40 mg daily to 60 mg daily. We discussed at length this question of a new relationship. She was encouraged to set boundaries with this friend, and if she is not desiring anything other than friendship to notify him. Orders: - FLUoxetine (PROzac) 20 mg capsule; Take 60mg daily (one 40mg and one 20mg at a time). Iron deficiency anemia, unspecified iron deficiency anemia type (D50.9) Assessment & Plan: History of, she will continue with Hematology. We will repeat a CBC at this time. Orders: - CBC with auto differential; Future - Comprehensive metabolic panel; Future - Hemoglobin A1c; Future - Microalbumin, urine, random; Future - Lipid panel; Future - TSH; Future - T4, free; Future Essential hypertension (I10) Assessment & Plan: She will continue with medications the same at this time and report the blood pressure readings to her poured pipe maker. Orders: - CBC with auto differential; Future - Comprehensive metabolic panel; Future - Hemoglobin A1c; Future - Microalbumin, urine, random; Future - Lipid panel; Future - TSH; Future - T4, free; Future Type 2 diabetes mellitus without complication, without long-term current use of insulin ([facility]) (HCC) (E11.9) Assessment & Plan: Patient advised goal glucose fasting 80-120. They were reminded to contact the office if having difficulty keeping sugar in goal ranges. They were advised to not skip meals and maintain a heart healthy diet (cut back on processed foods,red meat, fried foods). They were reminded to exercise 4x/week for 30min each session. Fasting labs entered, will notify patient of results as available Orders: - CBC with auto differential; Future - Comprehensive metabolic panel; Future - Hemoglobin A1c; Future - Microalbumin, urine, random; Future - Lipid panel; Future - TSH; Future - T4, free; Future Vitamin D deficiency (E55.9) - Vitamin D 25 hydroxy; Future Hyperlipidemia, unspecified hyperlipidemia type (E78.5) Assessment & Plan: Advised patient to follow a heart healthy diet, low in red meat and pork, and increase veggies. Advised exercise 4x/week for 30min each session. Orders: - Lipid panel; Future Hypothyroidism, unspecified type (E03.9) Assessment & Plan: Will evaluate further and routine labs. Will notify her of the results of these labs as they becomeavailable. Orders: - TSH; Future - T4, free; Future AYAD on CPAP (G47.33, Z99.89) - Ambulatory referral to Sleep Medicine; Future Moderate episode of recurrent major depressive disorder (HCC) (F33.1) Assessment & Plan: We will increase her Prozac from 40 mg daily to 60 mg daily. We discussed at length this question of a new relationship. She was encouraged to set boundaries with this friend, and if she is not desiring anything other than friendship to notify him. Seasonal allergic rhinitis, unspecified trigger (J30.2) Need for vaccination with 13-polyvalent pneumococcal conjugate vaccine (Z23) Other orders - loratadine (CLARITIN) 10 mg tablet; Take 1 tablet (10 mg total) by mouth daily as needed for allergies We additionally discussed vaccine updates. She will start with a Prevnar 13 today, and she will need a Pneumovax 23 over the next calendar year. She was advised to consider COVID-19 booster, potentially with a flu vaccine this fall. She will also be due for a Tdap at her next appointment. Orders Placed This Encounter ??? CBC with auto differential Standing Status: Future Number of Occurrences: 1 Standing Expiration Date: 10/21/2022 ??? Comprehensive metabolic panel Standing Status: Future Number of Occurrences: 1 Standing Expiration Date: 10/21/2022 ??? Hemoglobin A1c Standing Status: Future Number of Occurrences: 1 Standing Expiration Date: 10/21/2022 ??? Microalbumin, urine, random Standing Status: Future Number of Occurrences: 1 Standing Expiration Date: 10/21/2022 ??? Lipid panel Standing Status: Future Number of Occurrences: 1 Standing Expiration Date: 10/21/2022 ??? TSH Standing Status: Future Number of Occurrences: 1 Standing Expiration Date: 10/21/2022 ??? T4, free Standing Status: Future Number of Occurrences: 1 Standing Expiration Date: 10/21/2022 ??? Vitamin D 25 hydroxy Standing Status: Future Number of Occurrences: 1 Standing Expiration Date: 10/21/2022 ??? Ambulatory referral to Sleep Medicine Standing Status: Future Standing Expiration Date: 10/21/2022 Referral Priority: Routine Referral Type: Consultation Referral Reason: Specialty Services Required Referral Location: [facility] Referred to Provider: Steve Blake MD Requested Specialty: Sleep Medicine Number of Visits Requested: 1 ??? FLUoxetine (PROzac) 20 mg capsule Sig: Take 60mg daily (one 40mg and one 20mg at a time). Dispense: 90 capsule Refill: 1 Patient to take 60mg daily. ??? loratadine (CLARITIN) 10 mg tablet Sig: Take 1 tablet (10 mg total) by mouth daily as needed for allergies Dispense: 90 tablet Refill: 1 I spent a total of 47 minutes completing the patients care today. This included pre-charting, reviewing previous notes/labs, direct interaction/education with the patient and completion of charting not limited to management/refilling medications, labs orders, referrals and other ancillary orders tocomplete care. RACHID Carbajal documented in this encounter Miscellaneous Notes * Assessment & Plan Note - Ryann Galdamez PA - 10/21/2021 12:55 PM CDT Associated Problem(s): Type 2 diabetes mellitus without complications (CMS/HCC) (HCC) Patient advised goal glucose fasting 80-120. They were reminded to contact the office if having difficulty keeping sugar in goal ranges. They were advised to not skip meals and maintain a heart healthy diet (cut back on processed foods,red meat, fried foods). They were reminded to exercise 4x/week for 30min each session. Fasting labs entered, will notify patient of results as available * Assessment & Plan Note - Ryann Galdamez PA - 10/21/2021 12:54 PM CDT Associated Problem(s): Iron deficiency anemia (Resolved 03/03/2023) History of, she will continue with Hematology. We will repeat a CBC at this time. * Assessment & Plan Note - Ryann Galdamez PA - 10/21/2021 12:54 PM CDT Associated Problem(s): Acquired hypothyroidism Will evaluate further and routine labs. Will notify her of the results of these labs as they becomeavailable. * Assessment & Plan Note - Ryann Galdamez PA - 10/21/2021 12:54 PM CDT Associated Problem(s): Hyperlipidemia, unspecified (Deleted) Advised patient to follow a heart healthy diet, low in red meat and pork, and increase veggies. Advised exercise 4x/week for 30min each session. * Assessment & Plan Note - Ryann Galdamez PA - 10/21/2021 12:54 PM CDT Associated Problem(s): Essential hypertension She will continue with medications the same at this time and report the blood pressure readings to her poured pipe maker. * Assessment & Plan Note - Ryann Galdamez PA - 10/21/2021 12:54 PM CDT Associated Problem(s): Moderate episode of recurrent major depressive disorder (HCC) We will increase her Prozac from 40 mg daily to 60 mg daily. We discussed at length this question of a new relationship. She was encouraged to set boundaries with this friend, and if she is not desiring anything other than friendship to notify him. * Assessment & Plan Note - Ryann Galdamez PA - 10/21/2021 12:53 PM CDT Associated Problem(s): Anxiety (Resolved 03/03/2023) We will increase her Prozac from 40 mg daily to 60 mg daily. We discussed at length this question of a new relationship. She was encouraged to set boundaries with this friend, and if she is not desiring anything other than friendship to notify him. * Addendum Note - Heather Anderson MA - 10/21/2021 11:00 AM CDTAddended by: HEATHER ANDERSON on: 10/21/2021 02:22 PM Modules accepted: Orders documented in this encounter Plan of Treatment Not on file documented as of this encounter Procedures Procedure Name Priority Date/Time Associated Diagnosis Comments ALBUMIN, RANDOM URINE WITHOUT CREATININE Routine 10/28/2021 9:10 AM CDT Iron deficiency anemia, unspecified iron deficiency anemia type Essential hypertension Type 2 diabetes mellitus without complication, without long-term current use of insulin (CMS/HCC) (HCC) CBC WITH AUTO DIFFERENTIAL Routine 10/28/2021 9:10 AM CDT Iron deficiency anemia, unspecified iron deficiency anemia type Essential hypertension Type 2 diabetes mellitus without complication, without long-term current use of insulin (CMS/HCC) (HCC) VITAMIN D 25 HYDROXY Routine 10/28/2021 9:10 AM CDT Vitamin D deficiency TSH Routine 10/28/2021 9:10 AM CDT Iron deficiency anemia, unspecified iron deficiency anemia type Essential hypertension Type 2 diabetes mellitus without complication, without long-term current use of insulin (CMS/HCC) (HCC) Hypothyroidism, unspecified type T4, FREE Routine 10/28/2021 9:10 AM CDT Iron deficiency anemia, unspecified iron deficiency anemia type Essential hypertension Type 2 diabetes mellitus without complication, without long-term current use of insulin (CMS/HCC) (HCC) Hypothyroidism, unspecified type HEMOGLOBIN A1C Routine 10/28/2021 9:10 AM CDT Iron deficiency anemia, unspecified iron deficiency anemia type Essential hypertension Type 2 diabetes mellitus without complication, without long-term current use of insulin (CMS/HCC) (HCC) LIPID PANEL Routine 10/28/2021 9:10 AM CDT Iron deficiency anemia, unspecified iron deficiency anemia type Essential hypertension Type 2 diabetes mellitus without complication, without long-term current use of insulin (CMS/HCC) (HCC) Hyperlipidemia, unspecified hyperlipidemia type COMPREHENSIVE METABOLIC PANEL Routine 10/28/2021 9:10 AM CDT Iron deficiency anemia, unspecified iron deficiency anemia type Essential hypertension Type 2 diabetes mellitus without complication, without long-term current use of insulin (CMS/HCC) (HCC) documented in this encounter Results * Vitamin D 25 hydroxy (10/28/2021 9:10 AM CDT) Vitamin D 25-OH 87 30 - 100 ng/mL [facility] Comment: Vitamin D Status ? 25-OH Vitamin D: Deficiency: ?<20 ng/mL Insufficiency: ? 20 - 29 ng/mL Optimal: ? > or = 30 ng/mL For 25-OH Vitamin D testing on patients on D2-supplementation and patients for whom quantitation of D2 and D3 fractions is required, the [facility]() 25-OH VIT D, (D2,D3), LC/MS/MS is recommended: order code 94180 (patients >2yrs). See Note 1 Note 1 For additional information, please refer to http://education.[employer]/faq/KRU147 (This link is being provided for informational/ educational purposes only.) Blood specimen (specimen) 10/28/2021 9:10 AM CDT 10/28/2021 9:11 AM CDT [facility] - 10/29/2021 2:43 PM CDT FASTING:YES FASTING: YES us Ryann RASHID LAB BLOOD ORDERABLES Final Result [facility] [address] [place] [address] * T4, free (10/28/2021 9:10 AM CDT) Free T4 1.3 0.8 - 1.8 ng/dL [facility] Blood specimen (specimen) 10/28/2021 9:10 AM CDT 10/28/2021 9:11 AM CDT Narrative [facility] - 10/29/2021 2:43 PM CDT FASTING:YES FASTING: YES Ryann RASHID LAB BLOOD ORDERABLES Final Result Performing Organization Address [facility] de Phone Number JULIO CÉSAR [facility] [address] [place] [address] * TSH (10/28/2021 9:10 AM CDT) Pathologist [facility] TSH 3.36 0.40 - 4.50 mIU/L [facility] Blood specimen (specimen) 10/28/2021 9:10 AM CDT 10/28/2021 9:11 AM CDT Narrative [facility] - 10/29/2021 2:43 PM CDT FASTING:YES FASTING: YES Ryann RASHID LAB BLOOD ORDERABLES Final Result Performing Organization Address [facility] de Phone Number [facility] [address] [place] [address] * (ABNORMAL) Lipid panel (10/28/2021 9:10 AM CDT) [facility] Cholesterol 92 <200 mg/dL [facility] HDL 39(L) > OR = 50 mg/dL [facility] Triglycerides 105 <150 mg/dL [facility] LDL 34 mg/dL (calc) [facility] Comment: Reference range: <100 Desirable range <100 mg/dL for primary prevention; ?? <70 mg/dL for patients with CHD or diabetic patients with > or = 2 CHD risk factors. LDL-C is now calculated using the Puja calculation, which is a validated novel method providing better accuracy than the Friedewald equation in the estimation of LDL-C. Buzz PUENTE et al. WILFRIDO. 2013;310(19): 4866-3776 (http://education.[employer].Gaos[employer]yi/faq/CZE468) Chol/HDL ratio 2.4 <5.0 (calc) [facility] Non-HDL, (LDL+VLDL) 53 <130 mg/dL (calc) [facility] Comment: For patients with diabetes plus 1 major ASCVD risk factor, treating to a non-HDL-C goal of <100 mg/dL (LDL-C of <70 mg/dL) is considered a therapeutic option. Blood specimen (specimen) 10/28/2021 9:10 AM CDT 10/28/2021 9:11 AM CDT Narrative [facility] - 10/29/2021 2:43 PM CDT FASTING:YES FASTING: YES us Ryann RASHID LAB BLOOD ORDERABLES Final Result Performing Organization Address [facility] [[email or web address]] Co de Phone Number [facility] [address] [facility] [place] [address] * Microalbumin, urine, random (10/28/2021 9:10 AM CDT) Microalbumin, ur 5.4 See Note: mg/dL [facility] Comment: Reference Range: Reference Range Not established MARILYN [facility] Comment: The ADA defines abnormalities in albumin excretion as follows: Albuminuria Category ? Result (mcg/mg creatinine) Normal to Mildly increased ?<30 Moderately increased ?30-299 Severely increased ?> OR = 300 The ADA recommends that at least two of three specimens collected within a 3-6 month period be abnormal before considering a patient to be within a diagnostic category. Urine 10/28/2021 9:10 AM CDT 10/28/2021 9:11 AM CDT Narrative [facility] - 10/29/2021 2:43 PM CDT FASTING:YES FASTING: YES us Ryann RASHID LAB URINE ORDERABLES Final Result Performing Organization Address [facility] [[email or web address]] Co de Phone Number [facility] [address] [place] [address] * (ABNORMAL) Hemoglobin A1c (10/28/2021 9:10 AM CDT) Hgb A1C 6.1(H) <5.7 % of total Hgb [facility] Comment: For someone without known [...] for diagnosis of diabetes for children. Blood specimen (specimen) 10/28/2021 9:10 AM CDT 10/28/2021 9:11 AM CDT Narrative [facility] - 10/29/2021 2:43 PM CDT FASTING:YES FASTING: YES Ryann RASHID LAB BLOOD ORDERABLES Final Result [facility] [address] [place] [address] * (ABNORMAL) Comprehensive metabolic panel (10/28/2021 9:10 AM CDT) Glucose 108(H) 65 - 99 mg/dL [facility] Comment: ? Fasting reference interval For someone without known diabetes, a glucose value between 100 and 125 mg/dL is consistent with prediabetes and should be confirmed with a follow-up test. BUN 12 7 - 25 mg/dL [facility] Creatinine 0.54(L) 0.60 - 0.95 mg/dL [facility] eGFR 93 > OR = 60 mL/min/1.7 3m2 [facility] Comment: The eGFR is based on the CKD-EPI 2020 equation. To calculate the new eGFR from a previous Creatinine or Cystatin C result, go to https://www.kidney.org/professionals/ kdoqi/gfr%5Fcalculator BUN/creat ratio 22 6 - 22 (calc) [facility] Sodium 138 135 - 146 mmol/L [facility] Potassium, pl 4.0 3.5 - 5.3 mmol/L [facility] Chloride 104 98 - 110 mmol/L [facility] CO2 26 20 - 32 mmol/L [facility] Calcium 9.7 8.6 - 10.4 mg/dL [facility] Protein, sr 6.7 6.1 - 8.1 g/dL [facility] Albumin 4.1 3.6 - 5.1 g/dL [facility] GLOBULIN 2.6 1.9 - 3.7 g/dL (calc) [facility] Alb/glob ratio 1.6 1.0 - 2.5 (calc) [facility] Bilirubin, total 0.9 0.2 - 1.2 mg/dL [facility] Alk phos 93 37 - 153 U/L [facility] AST 14 10 - 35 U/L [facility] ALT (SGPT) 14 6 - 29 U/L [facility] Blood specimen (specimen) 10/28/2021 9:10 AM CDT 10/28/2021 9:11 AM CDT Narrative [facility] - 10/29/2021 2:43 PM CDT FASTING:YES FASTING: YES Ryann RASHID LAB BLOOD ORDERABLES Final Result [facility] [address] [facility] JAREN Jeffrey [id number] * (ABNORMAL) CBC with auto differential (10/28/2021 9:10 AM CDT) WBC 7.0 3.8 - 10.8 Thousand/u L [facility] RBC, POC 3.73(L) 3.80 - 5.10 Million/uL [facility] Hgb 11.9 11.7 - 15.5 g/dL [facility] Hct 34.5(L) 35.0 - 45.0 % [facility] MCV 92.5 80.0 - 100.0 fL [facility] MCH 31.9 27.0 - 33.0 pg [facility] MCHC 34.5 32.0 - 36.0 g/dL [facility] Rdw 14.0 11.0 - 15.0 % [facility] Platelets 319 140 - 400 Thousand/u L [facility] MPV 9.6 7.5 - 12.5 fL [facility] Neutrophils, abs 5,040 1,500 - 7,800 cells/uL [facility] Lymphocytes, abs 1,197 850 - 3,900 cells/uL [facility] Monocyte abs 546 200 - 950 cells/uL [facility] Eosinophils, abs 189 15 - 500 cells/uL [facility] Basophils, abs 28 0 - 200 cells/uL [facility] Neutrophils 72 % [facility] Lymphocyte pct 17.1 % [facility] Monocytes 7.8 % [facility] Eosinophils 2.7 % [facility] Basophils 0.4 % [facility] Blood specimen (specimen) 10/28/2021 9:10 AM CDT 10/28/2021 9:11 AM CDT Narrative [facility] - 10/29/2021 2:43 PM CDT FASTING:YES FASTING: YES Ryann RASHID LAB BLOOD ORDERABLES Final Result [facility] [address] [address] [facility] [place] [address] documented in this encounter Visit Diagnoses Diagnosis Anxiety- Primary Anxiety state, unspecified Iron deficiency anemia, unspecified iron deficiency anemia type Essential hypertension Unspecified essential hypertension Type 2 diabetes mellitus without complication, without long-term current use of insulin (CMS/HCC) (HCC) Vitamin D deficiency Hyperlipidemia, unspecified hyperlipidemia type Hypothyroidism, unspecified type AYAD on CPAP Moderate episode of recurrent major depressive disorder (HCC) Seasonal allergic rhinitis, unspecified trigger Need for vaccination with 13-polyvalent pneumococcal conjugate vaccine documented in this encounter Discontinued Medications Medication Sig Discontinue Reason Start Date End Da te busPIRone (BUSPAR) 5 mg tabletIndications:Anxiet y TAKE 1 TABLET BY MOUTH THREE TIMES A DAY 10/14/2021 10/21/2021 documented as of this encounter Historical Medications * This list may reflect changes made after this encounter. cholecalciferol (VITAMIN D-3) 50,000 unit capsule Take 1 capsule (50,000 Units total) by mouth once a week 07/27/2023 added in this encounter Orders Immunization/Injection Count Last Ordered Date First Ordered Date PNEUMOCOCCAL CONJUGATE VACCI NE 13-VALENT IM 1 10/21/2021 documented in this encounter Care Teams Natural Resources Engineer Relationship Specialty Start Date End Date Ryann Galdamez PA PCP - General Mastic Man 04/02/21 01/22/22 documented as of this encounter
--- OUTSIDE RECORDS SUMMARY | 2024-03-13 01:10 | XMS_ITS | Encounter Summary ---
Author Organization [facility] Healthcare Address [address] [place] [address] Care Team Providers Care Commonwealth Attorney Name Role Phone Ryann Galdamez Primary Care Provider [phone] Chris Mendes MD Unavailable [phone] Keli Orozco RN Unavailable Unavailable Alysa Newton RN Unavailable [phone] Encounter Details Date Type Department Care Team (Late st Contact Info) Description 01/15/[address] 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 States that Dr Mendes increased her dose from 1/2 tablet to 1 whole tablet 1x/day. documented in this encounter Plan of Treatment Not on file documented as of this encounter Visit Diagnoses Not on filedocumented in this encounter Discontinued Medications Medication Sig Discontinue Reason Start Date End Da te furosemide (LASIX) 40 mg tablet Take 0.5 tablets (20 mg total) by mouth daily Reorder 11/19/2021 01/15/2022 documented as of this encounter Care Teams Commonwealth Attorney Relationship Specialty Start Date End Date Ryann Galdamez PA PCP - General Wheel Shop Supervisor 04/02/21 01/22/22 Chris Mendes MD Referring Physician Cardiology 12/23/21 Keli Orozco, funeral attendantDry Janitor Cardiology 12/23/21 04/15/23 Alysa Newton, RN [address] [address] Dry Janitor Cardiology 12/23/21 documented as of this encounter
--- OUTSIDE RECORDS SUMMARY | 2024-03-13 01:10 | XMS_ITS | Encounter Summary ---
Author Organization [facility] Medical Group Address [address] [place] [address] Care Team Providers Care Energy Engineer Name Role Phone Ryann Galdamez Primary Care Provider [phone] Encounter Details Date Type Department Care Team (Late st Contact Info) Description 07/16/2021 Telephone [facility] Family Medicine [address] [place] [address] Ryann Galdamez PA [facility] [place] [address] Social History Tobacco Use Types [...] on file 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 Please update med list. * Telephone Encounter - Crissy Hunt - 07/16/2021 10:14 AM CDT Patient was in yesterday and per her office visit diltiazem was discontinued. She states that she was put on that by her buy boat operator recently. Do you want her off this med? Or should it stay on her med list and she continue to follow up with her buy boat operator with this medication? Please advise documented in this encounter Plan of Treatment Not on file documented as of this encounter Visit Diagnoses Not on filedocumented in this encounter Care Teams Energy Engineer Relationship Specialty Start Date End Date Ryann Galdamez PA PCP - General Textile Finisher 04/02/21 01/22/22 documented as of this encounter
--- OUTSIDE RECORDS SUMMARY | 2024-03-13 01:10 | XMS_ITS | Encounter Summary ---
Author Organization [facility] Healthcare Address [address] [place] [address] Care Team Providers Care Residential Caregiver Name Role Phone Chris Mendes MD Unavailable [phone] Keli Orozco RN Unavailable Unavailable Davin Patino RN Unavailable [phone] Cuba Larsen MD Primary Care Provider [phone] Encounter Details Date Type Department Care Team (Late st Contact Info) Description 06/17/2022 Telephone [facility] Transplant Heart [address] [address] Mail[address] [phone] [place] [address] Denisa Mustafa Social History Tobacco Use Types [...] on file 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 Gender Identity Not on file Sexual Orientation Not on file documented as of this encounter Ordered Prescriptions Prescription Sig Dispense Quantity Refills Last Filled Start Date End Date carvediloL (COREG) 25 mg tablet Take 0.5 tablets (12.5 mg total) by mouth 2 (two) times a day with meals 90 tablet 3 06/17/2022 3 documented in this encounter Miscellaneous Notes * Addendum Note - Davin Patino RN - 06/17/2022 5:04 PM CDTAddended by: DAVIN PATINO on: 06/17/2022 05:04 PM Modules accepted: Orders * Telephone Encounter - Davin Patino RN - 06/17/2022 3:56 PM CDT Spoke with patient and last couple of days BP low 99/63, today 83/47, HR 42, usually at least 60's and BP usually 110's at least. Feeling lightheaded and tired. No fluid on and started drinking more yesterday she states. On high doses of meds, Losartan 100mg daily, Coreg 25mg BID and Dilt 120mg BIDand Lasix 40mg daily. Will review with EMG for plan. Per EMG will decrease Coreg to 12.5mg BID. Spoke to patient with plan and asked she give update in a week. Verbalized understanding. * Telephone Encounter - Denisa Mustafa - 06/17/2022 3:47 PM CDT PT reports low BP 83/47 and low hrt 42, nausea. PT asks for call back from Dr. Mendes team documented in this encounter Plan of Treatment Not on file documented as of this encounter Visit Diagnoses Not on filedocumented in this encounter Discontinued Medications Medication Sig Discontinue Reason Start Date End Da te carvediloL (COREG) 25 mg tablet TAKE 1 TABLET BY MOUTH TWICE A DAY WITH FOOD Reorder 10/07/2021 06/17/2022 documented as of this encounter Care Teams Residential Caregiver Relationship Specialty Start Date End Date Cuba Larsen MD [address] [facility] [address] [place] [address] PCP - General Family Medicine 01/23/22 Chris Mendes MD Referring Physician Cardiology 12/23/21 Keli Orozco, news photographerProject Structural Engineer Cardiology 12/23/21 04/15/23 Davin aPtino, RN [address] [facility] [address] [place] [address] Project Structural Engineer Cardiology 12/23/21 documented as of this encounter
--- OUTSIDE RECORDS SUMMARY | 2024-03-13 01:10 | XMS_ITS | Encounter Summary ---
Author Organization [facility] Healthcare Address [address] [place] [address] Care Team Providers Care Software Engineering Specialist Name Role Phone Ryann Galdamez Primary Care Provider [phone] Encounter Details Date Type Department Care Team (Late st Contact Info) Description 09/11/2021 [facility] Post Discharge Follow up phone call [facility] [address] [place] [address] Ruddy Espinoza, SLURRY CONTROL TENDER [address] [place], [place] [id number] Social History Tobacco Use Types Packs/Day Years [...] on file 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
--- OUTSIDE RECORDS SUMMARY | 2024-03-13 01:10 | XMS_ITS | Encounter Summary ---
Author Organization [facility] Medical Group Address [address] [place] [address] Care Team Providers Care Decorating Consultant Name Role Phone Chris Mendes MD Unavailable [phone] Keli Orozco RN Unavailable Unavailable Alysa Newton RN Unavailable [phone] Cuba Larsen MD Primary Care Provider [phone] Reason for Visit * Reason Onset Date Comments Appointment Request 01/23/2022 Encounter Details Date Type Department Care Team (Late st Contact Info) Description 01/23/[address] [address] Ryann Galdamez PA [address] [place] [phone] Appointment Request Social History Tobacco Use Types Packs/Day [...] on file 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 Visit Type: New Patient What is the reason for the visit? Establish Care What is the reason we were unable to schedule the appointment? Current appointment availability didnot meet patient's need. If applicable, was a nurse practitioner or other provider offered? N/A Caller's Callback #: [phone] Additional Comments: Patient inadvertently missed her appointment on 01/15/22 as a new patient and is trying to get in earlier than what my availability showed in [place] Does message need to be routed? Yes-Action Needed MATE documented in this encounter Plan of Treatment Not on file documented as of this encounter Visit Diagnoses Not on filedocumented in this encounter Care Teams Decorating Consultant Relationship Specialty Start Date End Date Cuba Larsen MD [address] [facility] [address] [place] [address] PCP - General Family Medicine 01/23/22 Chris Mendes MD Referring Physician Cardiology 12/23/21 Keli Orozco, electroplating sales representativeTomato Paste Maker Cardiology 12/23/21 04/15/23 Alysa Newton, RN [address] [facility] [address] [place] [address] Tomato Paste Maker Cardiology 12/23/21 documented as of this encounter
--- OUTSIDE RECORDS SUMMARY | 2024-03-13 01:10 | XMS_ITS | Encounter Summary ---
Author Organization [facility] Healthcare Address [address] [place] [address] Care Team Providers Care Food Technologist Name Role Phone Ryann Galdamez Primary Care Provider [phone] Encounter Details Date Type Department Care Team (Late st Contact Info) Description 09/12/2021 Telephone [facility] Transplant Heart [address] 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 Chlorthalidne was decreased to 12.5mg, will stop today. BP's ranging 87-103/ and can feel dizzy at times. Also no fluid symptoms so will hold Lasix for 2 days and then on Sun start 20mg daily. Will give update late next week. * Telephone Encounter - Kori Dorsey - 09/12/2021 9:51 AM CDT Saw her neurologist Noris and her BP was too low. Said she the neurologist called the office to relay this to Dr. Mendes. I don't see a call noted in chart. Her BP is still very low. Last few readings: This morning 109/61 Yesterday 96/54 pls 62 later that day 108/65 Please CB to discuss. documented in this encounter Plan of Treatment Not on file documented as of this encounter Visit Diagnoses Not on filedocumented in this encounter Discontinued Medications Medication Sig Discontinue Reason Start Date End Da te chlorthalidone 25 mg tablet Take 0.5 tablets (12.5 mg total) by mouth daily Alternate therapy 09/03/2021 09/12/2021 furosemide (LASIX) 40 mg tablet Take 1 tablet (40 mg total) by mouth daily Reorder 12/06/2020 09/12/2021 documented as of this encounter Care Teams Food Technologist Relationship Specialty Start Date End Date Ryann Galdamez PA PCP - General Media Marketing Coordinator 04/02/21 01/22/22 documented as of this encounter
--- OUTSIDE RECORDS SUMMARY | 2024-03-13 01:10 | XMS_ITS | Encounter Summary ---
Author Organization [facility] Medical Group Address [address] [facility] [address] [place] [address] Care Team Providers Care Decay Control Operator Name Role Phone Chris Mendes MD Unavailable Keli Orozco RN Unavailable Unavailable Alysa Newton RN Unavailable [phone] Cuba Larsen MD Primary Care Provider [phone] Reason for Visit * Reason Comments Successful Phone Call Encounter Details Date Type Department Care Team ([facility] Contact Info) Description 05/16/2022 [facility] Outreach [facility] Accountable Care Organization [address] [place] [address] Lucila Perkins, [address] [address] Social History Tobacco Use Types Packs/Day Years [...] on file 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 Status of Reason for ED Visit - Better Status Details: - Patient states her cough has improved but she is still having quite a bit of rattling in the chest. Patient states the [facility] her with bronchitis. Patient states hercough is productive and she is having lots of nasal drainage. Patient is not currently taking anything for the nasal drainage as she is unsure of what to take. Informed her that I would send a message to PCP's office. Patient states she overall doesn't feel too terrible. Discharge Instructions Reviewed - Yes Details: - Patient confirmed that she received her discharge paperwork and did not have any furtherquestions. Medication Reconciliation Completed - Yes Details: - Patient states she was prescribed prednisone and is currently taking that. ED Follow-Up Appointment - Not scheduled. Details: - No provider availability within specific time frame. Message sent to PCP's office. Patient educated about same day sick appts at PCP office and when to utilize office vs urgent care vs ED. Patient verbalized understanding of information presented. No additional needs identified at this time. Provided my contact information for future needs. Thank you, Lucila Perkins [facility] Care Scheduling Specialist [facility] [phone] IAL DEPUTY SHERIFF documented in this encounter Plan of Treatment Not on file documented as of this encounter Visit Diagnoses Not on filedocumented in this encounter Historical Medications * This list may reflect changes made after this encounter. predniSONE (DELTASONE) 20 mg tablet Take 1 tablet (20 mg) by mouth 2 (two) times a day 02/03/2023 added in this encounter Care Teams Decay Control Operator Relationship Specialty Start Date End Date Cuba Larsen MD [address] [facility] [address] [place] [address] PCP - General Family Medicine 01/23/22 Chris Mendes MD Referring Physician Cardiology 12/23/21 Keli Orozco, ordnance officerEmbedded Nurse Cardiology 12/23/21 04/15/23 Alysa Newton, RN [address] [facility] [address] [place] [address] Embedded Nurse Cardiology 12/23/21 documented as of this encounter
--- OUTSIDE RECORDS SUMMARY | 2024-03-13 01:10 | XMS_ITS | Encounter Summary ---
Author Organization [facility] Healthcare Address [address] [place] [address] Care Team Providers Care School Principal Name Role Phone Ryann Galdamez Primary Care Provider [phone]- [phone] Reason for Referral * Diagnostic Imaging (Routine) - Closed Specialty Diagnoses / Procedures Referred By Indra muñoz Referred To Contact Diagnoses Closed fracture of distal end of left fibula Procedures XR Ankle Left 3 or More Views Kvng Nash DO [facility] [address] [place] [address] Phone: tel: fax: [address] [phone] Referral ID Status Reason Start Date Expiration Date Visits Re quested Visits Authorized [id number] Closed 07/15/2021 08/14/2022 1 1 Reason for Visit * Diagnostic Imaging (Routine) - Closed Specialty Diagnoses / Procedures Referred By Indra muñoz Referred To Contact Diagnoses Closed fracture of distal end of left fibula Procedures XR Ankle Left 3 or More Views Kvng Nash DO [address] [facility] [address] [place] [address] Phone: tel: fax: [address] [phone] Referral ID Status Reason Start Date Expiration Date Visits Re quested Visits Authorized [id number] Closed 07/15/2021 08/14/2022 1 1 Encounter Details Date Type Department Care Team (Latest Contact Info) Description 07/15/2021 11:27 AM CDT - 07/15/2021 11:59 PM CDT Hospital Encounter [facility] [address] [place] [address] Closed fracture of distal end of left fibula Discharge Disposition: Discharge to home or self [...] on file 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 Gender Identity Not on file Sexual Orientation Not on file documented as of this encounter Medications at Time of Discharge CALCIUM CARBONATE ORAL Take 600 mg by mouth 2 (two) times a day acetaminophen (TYLENOL) 500 mg tablet Take 2 tablets (1,000 mg total) by mouth as needed for pain When Needed 3 ALPRAZolam (XANAX) 0.5 mg tabletIndications :Anxiety Take 0.5 tablets (0.25 mg total) by mouth 2 (two) times a day as needed for anxiety 60 tablet 06/03/2021 2 busPIRone (BUSPAR) 5 mg tabletIndications :Anxiety Take 1 tablet (5 mg total) by mouth 3 (three) times a day 270 tablet 07/09/2021 2 carvediloL (COREG) 25 mg tablet TAKE 1 TABLET BY MOUTH TWICE A DAY WITH FOOD 180 tablet 3 10/01/2020 2 Eliquis 5 mg tablet TAKE 1 TABLET BY MOUTH TWICE A DAY 180 tablet 3 09/19/2020 2 ferrous sulfate 325 mg (65 mg of elemental iron) tabletIndications :Iron deficiency anemia, unspecified iron deficiency anemia type TAKE 1 TABLET BY MOUTH TWICE A DAY 60 tablet 1 06/25/2021 2 FLUoxetine (PROzac) 40 mg capsule Take 40 mg by mouth daily 2 furosemide (LASIX) 40 mg tablet Take 1 tablet (40 mg total) by mouth daily 30 tablet 11 12/06/2020 2 glipiZIDE (GLUCOTROL) 10 mg tabletIndications :type 2 diabetes mellitus Take 10 mg by mouth 2 (two) times a day before breakfast and lunch 2 levothyroxine (SYNTHROID) 50 mcg tablet Take 1 tablet (50 mcg total) by mouth daily 30 tablet 11 01/21/2021 2 losartan (COZAAR) 100 mg tablet Take 1 tablet (100 mg total) by mouth daily 30 tablet 11 07/02/2021 3 metFORMIN (GLUCOPHAGE) 500 mg tablet TAKE 1 TABLET BY MOUTH TWICE A DAY WITH MEALS 180 tablet 1 03/05/2021 2 rosuvastatin (CRESTOR) 20 mg tablet TAKE 1 TABLET BY MOUTH EVERY DAY 90 tablet 3 09/11/2020 2 spironolactone (ALDACTONE) 25 mg tablet Take 1 tablet (25 mg total) by mouth daily 30 tablet 11 07/02/2021 3 zolpidem (AMBIEN) 10 mg tabletIndications :Sleep-Onset Insomnia Take 1 tablet (10 mg total) by mouth nightly as needed for sleep 90 tablet 07/15/2021 2 documented as of this encounter Discharge Disposition Disposition Code Departure Means Destination Discharge to home or self care documented in this encounter Plan of Treatment Not on file documented as of this encounter Procedures Procedure Name Priority Date/Time Associated Diagnosis Comments XR ANKLE LEFT 3 OR MORE VIEWS Schedule Routine, Read Routine (OP Routine) 07/15/2021 11:35 AM CDT Closed fracture of distal end of left fibula documented in this encounter Results * XR Ankle Left 3 or More Views (07/15/2021 11:35 AM CDT) Anatomical Region Laterality Modality Lower Extremities, Ankle Left Compute d Radiography 07/16/2021 2:56 PM CDT Narrative 07/16/2021 2:57 PM CDT EXAM DESCRIPTION: ?XR ANKLE LEFT 3 OR MORE VIEWS REASON FOR STUDY: ?? pain ?? Follow up left ankle fx, fx x 05/26/21 ?? TECHNIQUE: ?? AP, lateral, and oblique ??radiographic views acquired of the left ankle. COMPARISON: ?? 06/20/2021 FINDINGS: BONES/JOINTS: ?? There is a healing distal left fibular fracture at the level of the tibial pilon. ??Bony callus is seen but there is still portions of the fracture line which are unfused. ??The ankle mortise appears normal. ??No new fracture or loss of reduction. ?Joint spaces are maintained. SOFT TISSUES: ?? Unremarkable. OTHER: ?? No other significant finding. IMPRESSION: ?? Healing distal left fibular fracture. THIS IS AN ELECTRONICALLY VERIFIED FINAL REPORT 07/16/2021 2:57 PM - Electronically signed by ??Ravi Lombardo M.D. KN D: ??07/16/2021 2:57 PM T: Report ID: [id number] Reading Location: ??[id number] Procedure Note Ravi Lombardo MD - 07/16/2021 EXAM DESCRIPTION: XR ANKLE LEFT 3 OR MORE VIEWS REASON FOR STUDY: pain Follow up left ankle fx, fx x 05/26/21 TECHNIQUE: AP, lateral, and oblique radiographic views acquired of theleft ankle. COMPARISON: 06/20/2021 FINDINGS: BONES/JOINTS: There is a healing distal left fibular fractureat the level of the tibial pilon. Bony callus is seen but there is still portions of the fracture line which are unfused. The ankle mortiseappears normal. No new fracture or loss of reduction. Joint spaces aremaintained. SOFT TISSUES: Unremarkable. OTHER: No other significant finding. IMPRESSION: Healing distal left fibular fracture. THIS IS AN ELECTRONICALLY VERIFIED FINAL REPORT 07/16/2021 2:57 PM - Electronically signed by Ravi CRAIN T: Report ID: [id number] Reading Location: [id number] Kvng Nash DO IMG XR PROCEDURES Final Result documented in this encounter Visit Diagnoses Diagnosis Closed fracture of distal end of left fibula documented in this encounter Care Teams School Principal Relationship Specialty Start Date End Date Ryann Galdamez PA PCP - General Bedspread Folder 04/02/21 01/22/22 documented as of this encounter
--- OUTSIDE RECORDS SUMMARY | 2024-03-13 01:10 | XMS_ITS | Encounter Summary ---
Author Organization [facility] Address [address] [place] [address] Phone Care Team Providers Care Medical Science Liaison Name Role Phone Ryann Galdamez Primary Care Provider [phone]- [phone] Reason for Visit * Reason Comments Consult * Consultation (Routine) - Closed Specialty Diagnoses / Procedures Referred By Contfred t Referred To Contact Hematology Diagnoses Iron deficiency anemia, unspecified iron deficiency anemia type Ryann Galdamez PA Phone: tel: fax: [facility] Hematology [address] [place] [address] [place] [phone] Referral ID Status Reason Start Date Expiration Date V isits Requested Visits Authorized [id number] Closed Specialty Services Required 07/01/2021 06/30/2022 12 12 Encounter Details Date Type Department Care Team (Late st Contact Info) Description 07/16/2021 2:30 PM CDT Office Visit 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 Gender Identity Not on file Sexual Orientation Not on file documented as of this encounter Last Filed Vital Signs Vital Sign Reading Time Taken Comments Blood Pressure 160/80 07/16/2021 2:34 PM CDT Pulse 79 07/16/2021 2:34 PM CDT Temperature 36.7 ??C (98 ??F) 07/16/2021 2:34 PM CDT Respiratory Rate 18 07/16/2021 2:34 PM CDT Oxygen Saturation 97% 07/16/2021 2:34 PM CDT Inhaled Oxygen Concentration - - Weight 70.3 kg (155 lb) 07/16/2021 2:34 PM CDT Height 154.9 cm (5' 1 ) 07/16/2021 2:34 PM CDT Body Mass Index 29.29 07/16/2021 2:34 PM CDT documented in this encounter Progress Notes * Jerson Michael Jr., MD - 07/16/2021 2:30 PM CDT [facility] Visit Date: 07/16/2021 Reason for Consult: Anemia. Requesting Provider: RACHID Carbajal HPI: This is an 81-year-old white female, who comes in today (July 16, 2021) with her brother, because shewas found to be anemic, for further evaluation. She is on chronic anticoagulation therapy, because history of atrial fibrillation, and she also hada provoked pulmonary embolus, after she had a fractured right lower leg. She also tells me that she had problems with a kidney stone, requiring treatments for the same. During that time, she would notice mild hematuria. She also has multiple other comorbidities. She denies any problems with obvious gross GI or type problems otherwise. She was started on iron supplementation, which she has been taking without any untoward side effects. She had laboratory testing on May 27, 2021, she had a hemoglobin of 7.8 g five % with an MCV of83. Serum ferritin of 34. She currently feels better, she is more active. She has had multiple CBC, on June 13, her hemoglobin was 9 g, on June 20 her hemoglobin was 9.8 g,and a CBC performed on July 15 showed her hemoglobin to be 12.2 g. Past medical history is noted. Medication list is noted. Family history is reviewed. Past Medical History: Diagnosis Date ??? Adrenal nodule (CMS/HCC) (HCC) ??? Anxiety ??? Aortic stenosis, moderate ??? Atrial fibrillation (CMS/HCC) (HCC) ??? Cardiomyopathy (HCC) ??? Diabetes mellitus (HCC) ??? Dyslipidemia ??? GERD (gastroesophageal reflux disease) ??? Heart murmur ??? HFrEF (heart failure with reduced ejection fraction) (CMS/HCC) (HCC) ??? Hyperlipidemia ??? Hypertension ??? Hypothyroidism ??? Insomnia ??? Mitral regurgitation ??? NSTEMI (non-ST elevated myocardial infarction) (CMS/HCC) (HCC) ??? Obesity ??? AYAD on CPAP ??? Patellar sleeve fracture of left knee ??? PONV (postoperative nausea and vomiting) ??? Pulmonary embolism (HCC) ??? Sleep apnea ??? Stroke (CMS/HCC) (HCC) ??? Zenker's diverticulum Past Surgical History: Procedure Laterality Date ??? BREAST LUMPECTOMY ??? CHOLECYSTECTOMY ??? HAND SURGERY Left plate & screws ??? HYSTERECTOMY ??? INCISION AND DRAINAGE FEMUR Left 05/22/2019 ??? KIDNEY STONE SURGERY Prior to Admission medications Medication Sig Start Date End Date Taking? Authorizing Provider acetaminophen (TYLENOL) 500 mg tablet Take 1,000 mg by mouth as needed for pain When Needed Yes Provider, MD Cameron ALPRAZolam (XANAX) 0.5 mg tablet Take 0.5 tablets (0.25 mg total) by mouth 2 (two) times a day as needed for anxiety 06/03/21 07/03/21 Yes Ryann Galdamez PA busPIRone (BUSPAR) 5 mg tablet Take 1 tablet (5 mg total) by mouth 3 (three) times a day 07/09/21 Yes Ryann Galdamez PA CALCIUM CARBONATE ORAL Take 600 mg by mouth 2 (two) times a day Yes Cameron Pike MD carvediloL (COREG) 25 mg tablet TAKE 1 TABLET BY MOUTH TWICE A DAY WITH FOOD 10/01/20 Yes Cathleen Walker MD Eliquis 5 mg tablet TAKE 1 TABLET BY MOUTH TWICE A DAY 09/19/20 Yes Cathleen Walker MD ferrous sulfate 325 mg (65 mg of elemental iron) tablet TAKE 1 TABLET BY MOUTH TWICE A DAY 06/25/21 Yes Ryann Galdamez PA FLUoxetine (PROzac) 40 mg capsule Take 40 mg by mouth daily Yes Cameron Pike MD furosemide (LASIX) 40 mg tablet Take 1 tablet (40 mg total) by mouth daily 12/06/20 Yes Cathleen Walker MD levothyroxine (SYNTHROID) 50 mcg tablet Take 1 tablet (50 mcg total) by mouth daily 01/21/21 01/21/22Yes Ryann Galdamez PA losartan (COZAAR) 100 mg tablet Take 1 tablet (100 mg total) by mouth daily 07/02/21 07/02/22 Yes Chris Mendes MD metFORMIN (GLUCOPHAGE) 500 mg tablet TAKE 1 TABLET BY MOUTH TWICE A DAY WITH MEALS 03/05/21 Yes Linda Frost PA javmurct-ryg-wvmg-FA-lutein 8 mg iron-400 mcg-300 mcg tablet Take by mouth Yes Cameron Pike MD rosuvastatin (CRESTOR) 20 mg tablet TAKE 1 TABLET BY MOUTH EVERY DAY 09/11/20 Yes Cathleen Walker MD spironolactone (ALDACTONE) 25 mg tablet Take 1 tablet (25 mg total) by mouth daily 07/02/21 07/02/22 Yes Chris Mendes MD zolpidem (AMBIEN) 10 mg tablet Take 1 tablet (10 mg total) by mouth nightly as needed for sleep 07/15/21 Yes Ryann Galdamez PA glipiZIDE (GLUCOTROL) 10 mg tablet Take 10 mg by mouth 2 (two) times a day before breakfast and lunch Patient not taking: Reported on 07/16/2021 ProviderCameron MD busPIRone (BUSPAR) 5 mg tablet Take 1 tablet (5 mg total) by mouth 3 (three) times a day 06/17/21 07/09/21 Ryann Galdamez PA dilTIAZem CD/XR/XT (Cardizem CD) 120 mg 24 hr capsule Take 1 capsule (120 mg total) by mouth daily 07/09/21 07/15/21 Chris Mendes MD tamsulosin (FLOMAX) 0.4 mg extended release capsule Take 1 capsule (0.4 mg total) by mouth daily with dinner Patient not taking: Reported on 07/15/2021 05/29/21 07/15/21 Jazmyn Miranda MD PhD Allergies Allergen Reactions ??? Amlodipine Shortness of breath ??? Prasanth Inhibitors Cough Reaction: COUGH, ??? Citalopram ??? Lisinopril ??? Lisinopril-Hydrochlorothiazide Dizziness and Nausea only Dizzy, nauseated Social History Socioeconomic History ??? Marital status: Tobacco Use ??? Smoking status: Never Smoker ??? Smokeless tobacco: Never Used Vaping Use ??? Vaping Use: Never used Substance and Sexual Activity ??? Alcohol use: Yes Comment: 1/mo ??? Drug use: Never ??? Sexual activity: Defer Social History Narrative Feels safe at home Family History Problem Relation Age of Onset ??? Sudden Cardiac Mother Family history of sudden cardiac - (Added by Conv) ??? Heart failure Mother Family history of heart failure - (Added by TW Conv) ??? Heart disease Mother ??? Heart attack Father Family history of heart attack - (Added by TW Conv) ??? Diabetes Father Family history of diabetes mellitus - (Added by TW Conv) ??? Hypertension Father Family hx of hypertension - (Added by TW Conv) ??? Heart disease Father ??? Diabetes Son Family history of diabetes mellitus - (Added by TW Conv) ??? Anesthesia problems Neg Hx Review of Systems Constitutional: Negative. HENT: Negative. Eyes: Negative. Respiratory: Negative. Cardiovascular: Negative. Gastrointestinal: Negative. Endocrine: Negative. Genitourinary: Negative. Musculoskeletal: Negative. Skin: Negative. Hematological: Negative. Psychiatric/Behavioral: Negative. Pain: negative. Vitals BP 160/80 Pulse 79 Temp 36.7 ??C (98 ??F) (Oral) Resp 18 Ht 154.9 cm (5' 1 ) Wt 70.3 kg (155 lb) SpO2 97% BMI 29.29 kg/m?? Physical Exam Constitutional: General: She is not in acute distress. Appearance: Normal appearance. She is not ill-appearing. Skin: Coloration: Skin is not pale. Neurological: Mental Status: She is alert and oriented to person, place, and time. Psychiatric: Mood and Affect: Mood normal. Behavior: Behavior normal. Thought Content: Thought content normal. Judgment: Judgment normal. Lab/Radiology/Diagnostic Review: Results of prior laboratory data was reviewed and discussed with them. Assessment: This is a [age] year old female, who came here today for evaluation of anemia. She was placed on iron supplementation in May. She has not had any untoward side effects or complications from the medication. Subsequent laboratory testing carried out, have shown that her hemoglobin values have steadily increase, and currently her hemoglobin was up to 12.2 g yesterday. I told them that I would continue with the iron supplementation for another couple of weeks. I would like for her to discontinue the iron supplementation after that, and then we will check a CBC, iron studies and ferritin approximately about 6 weeks later. If she were to begin to have complains about feeling fatigued before her next scheduled appointmentwith me, to let us know immediately. Questions that they had were answered to their satisfaction. Plan: 1. Continue iron supplementation for 2 more weeks. 2. Discontinue iron, and then repeat laboratory testing including CBC, iron studies and ferritin 6 weeks later. Thank you very much for allowing me the opportunity to see this nice lady. documented in this encounter Plan of Treatment Not on file documented as of this encounter Procedures Procedure Name Priority Date/Time Associated Diagnosis Comments IRON PROFILE W/ IBC Routine 09/24/2021 9 :55 AM CDT Iron deficiency anemia, unspecified iron deficiency anemia type CBC WITH AUTO DIFFERENTIAL Routine 09/24/2021 9:55 AM CDT Iron deficiency anemia, unspecified iron deficiency anemia type FERRITIN Routine 09/24/2021 9:55 AM CDT Iron deficiency anemia, unspecified iron deficiency anemia type documented in this encounter Results * CBC with auto differential (09/24/2021 9:55 AM CDT) WBC 6.0 3.8 - 10.8 Thousand/u L [facility] RBC, POC 3.90 3.80 - 5.10 Million/uL [facility] Hgb 12.3 11.7 - 15.5 g/dL [facility] Hct 35.9 35.0 - 45.0 % [facility] MCV 92.1 80.0 - 100.0 fL [facility] MCH 31.5 27.0 - 33.0 pg [facility] MCHC 34.3 32.0 - 36.0 g/dL [facility] Rdw 14.4 11.0 - 15.0 % [facility] Platelets 259 140 - 400 Thousand/u L [facility] MPV 9.9 7.5 - 12.5 fL [facility] Neutrophils, abs 4,164 1,500 - 7,800 cells/uL [facility] Lymphocytes, abs 1,224 850 - 3,900 cells/uL [facility] Monocyte abs 492 200 - 950 cells/uL [facility] Eosinophils, abs 102 15 - 500 cells/uL [facility] Basophils, abs 18 0 - 200 cells/uL [facility] Neutrophils 69.4 % [facility] Lymphocyte pct 20.4 % [facility] Monocytes 8.2 % [facility] Eosinophils 1.7 % [facility] Basophils 0.3 % [facility] Blood specimen (specimen) 09/24/2021 9:55 AM CDT 09/24/2021 9:56 AM CDT Jerson Michael Jr., MD LAB BLOOD ORDERABLES Final Result Performing Organization Address [facility] Co de Phone Number [facility] [address] [place] [address] * Ferritin (09/24/2021 9:55 AM CDT) Ferritin 41 16 - 288 ng/mL [facility] Blood specimen (specimen) 09/24/2021 9:55 AM CDT 09/24/2021 9:56 AM CDT Jerson Michael Jr., MD LAB BLOOD ORDERABLES Final Result Performing Organization Address [facility] de Phone Number [facility] [address] [place] [address] * Iron profile w/ IBC (09/24/2021 9:55 AM CDT) Iron 84 45 - 160 mcg/dL [facility] TIBC 418 250 - 450 mcg/dL (calc) [facility] Iron saturation 20 16 - 45 % (calc) [facility] Blood specimen (specimen) 09/24/2021 9:55 AM CDT 09/24/2021 9:56 AM CDT Jerson Michael Jr., MD LAB BLOOD ORDERABLES Final Result Performing Organization Address [facility] de Phone Number [facility] [address] [address] [facility] [place] [address] documented in this encounter Visit Diagnoses Diagnosis Iron deficiency anemia, unspecified iron deficiency anemia type- Primary documented in this encounter Historical Medications * This list may reflect changes made after this encounter. ivljyecj-siz-xutd -FA-lutein 8 mg iron-400 mcg-300 mcg tablet Take by mouth 10/01/2023 added in this encounter Orders Outpatient Referral Count Last Ordered Date Fir st Ordered Date AMB REFERRAL TO HEMATOLOGY 1 07/16/2021 Appointment Requests Count Last Ordered Date Fi rst Ordered Date [facility] APPOINTMENT REQUEST 1 022 documented in this encounter Care Teams Medical Science Liaison Relationship Specialty Start Date End Date Ryann Galdamez PA PCP - General Director Telecommunications 04/02/21 01/22/22 documented as of this encounter
--- OUTSIDE RECORDS SUMMARY | 2024-03-13 01:10 | XMS_ITS | Encounter Summary ---
Author Organization [facility] Address [address] [place] [address] Care Team Providers Care Latex Dipper Name Role Phone Ryann Galdamez Primary Care Provider [phone]- [phone] Reason for Visit * Reason Onset Date Comments med refill 07/17/2021 Encounter Details Date Type Department Care Team (Late st Contact Info) Description 07/17/2021 Telephone [facility] Family Medicine [address] [place] [address] Ryann Galdamez PA [facility] [place] [address] med refill Social History Tobacco Use Types Packs/Day Years [...] on file 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 And happy to hear she has a good report! * Telephone Encounter - Nohemi Calvo - 07/17/2021 10:04 AM CDT Prema would like a 30 day supply instead of 90 day supply in case you want to increase her dosage soon. Also, she wants you to know that she got a great report from Dr. Michael. documented in this encounter Plan of Treatment Not on file documented as of this encounter Visit Diagnoses Diagnosis Anxiety Anxiety state, unspecified documented in this encounter Discontinued Medications Medication Sig Discontinue Reason Start Date End Da te busPIRone (BUSPAR) 5 mg tabletIndications:Anxiet y Take 1 tablet (5 mg total) by mouth 3 (three) times a day Reorder 07/09/2021 07/17/2021 documented as of this encounter Care Teams Latex Dipper Relationship Specialty Start Date End Date Ryann Galdamez PA PCP - General Arch Support Maker 04/02/21 01/22/22 documented as of this encounter
--- OUTSIDE RECORDS SUMMARY | 2024-03-13 01:10 | XMS_ITS | Encounter Summary ---
Author Organization [facility] Medical Group Address [address] [address] Care Team Providers Care Baseball Hand Sewer Name Role Phone Ryann Galdamez Primary Care Provider [phone]- [phone] Reason for Referral * Diagnostic Imaging (Routine) - Closed Specialty Diagnoses / Procedures Referred By Indra muñoz Referred To Contact Diagnoses Closed fracture of distal end of left fibula Procedures XR Ankle Left 3 or More Views Kvng Nash DO [address] [facility] [address] [place] [address] Phone: tel: fax: [address] [address] Referral ID Status Reason Start Date Expiration Date Visits Re quested Visits Authorized [id number] Closed 10/17/2021 11/16/2022 1 1 Reason for Visit * Reason Comments Fracture Pain * Consultation (Routine) - Closed Specialty Diagnoses / Procedures Referred By Indra muñoz Referred To Contact Orthopedic Surgery Diagnoses Traumatic closed nondisplaced fracture of distal fibula, left, with routine healing, subsequent encounter Kvng Nash DO [address] [facility] [address] [place] [address] Phone: tel: fax: [facility] Medical [facility] Orthopedics and Sports Medicine [facility] [address] [place] [address] Phone: tel: fax: Referral ID Status Reason Start Date Expiration Date V isits Requested Visits Authorized [id number] Closed Specialty Services Required 06/11/2021 06/10/2022 12 12 Encounter Details Date Type Department Care Team (Late st Contact Info) Description 10/17/2021 11:15 AM CDT Office Visit 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 FOLLOW UP PATIENT VISIT Subjective CHIEF COMPLAINT She had concerns including Fracture of the Left Ankle and Pain of the Left Knee. HISTORY OF PRESENT ILLINESS Patient returns for re-evaluation of her left ankle complains of left knee instability. She is approximately her left distal fibula fracture. She is doing well with regards to her ankle. She denies any acute issues. She does occasionally complain of some giving way in her left knee. She has a history of distal femur replacement for severely comminuted distal femur fracture. She is not complainingof pain but occasionally has weakness. She denies any numbness tingling down her left leg. Objective PHYSICAL EXAM There were no vitals taken for this visit. Exam left knee shows prior incision well healed. No signs of infection. She is able to actively extend to 0 and flex to 110??. The knee feels stable with varus valgus testing. No erythema or signs ofinfection. Left ankle with no significant swelling. She denies tenderness over her distal fibula fracture site. She tolerates tibiotalar subtalar motion. Gross motor sensory intact. REVIEW OF X-RAYS/STUDIES/LABS X-rays of the left ankle show healing of a distal fibula fracture. No change in alignment from prior films. Mortise stable. Diagnoses and all orders for this visit: Closed fracture of distal end of left fibula (Primary) - XR Ankle Left 3 or More Views; Future Plan: Discussed further treatment patient. She is doing very well regards to her ankle. She will continueactivity as tolerated. Her left knee feels stable on exam. She does probably have some underlying weakness from being immobilized. She is going to try a hinged knee brace that was provided her in clinic today. She will follow up with me on a p.r.n. basis if her symptoms worsen. All questions addressed. Kvng Nash DO documented in this encounter Plan of Treatment Not on file documented as of this encounter Results * XR Ankle Left 3 or More Views (10/17/2021 11:10 AM CDT) Anatomical Region Laterality Modality Lower Extremities, Ankle Left Compute d Radiography 10/20/2021 10:4 2 AM CDT Narrative 10/20/2021 10:45 AM CDT EXAM DESCRIPTION: XR ANKLE LEFT 3 OR MORE VIEWS REASON FOR STUDY: fracture ?? Follow up evaluation, ??intermittent mild pain and mild swelling ? TECHNIQUE: Three views weight-bearing submitted with comparison 07/15/2021. FINDINGS: There is a healing distal left fibular fracture. ??The ankle joint space and mortise appear normal. ??There is no evidence of an ankle effusion. ?? There is soft tissue swelling about the ankle. ??Plantar calcaneal spur is present. ??There is suggestion of pes planovalgus on this nonweightbearing exam. ??Arterial atherosclerosis is present. IMPRESSION: Healing distal left fibular fracture with left ankle soft tissue swelling. THIS IS AN ELECTRONICALLY VERIFIED FINAL REPORT 10/20/2021 10:45 AM - Electronically signed by ??Frank Ferguson M.D. MF: [email or web address] D: ??10/20/2021 10:45 AM T: ??10/20/2021 10:45 AM Report ID: [id number] Reading Location: ??[id number] Procedure Note Frank Ferguson MD - 10/20/2021 EXAM DESCRIPTION: XR ANKLE LEFT 3 OR MORE VIEWS REASON FOR STUDY: fracture Follow up evaluation, intermittent mild pain and mild swelling TECHNIQUE: Three views weight-bearing submitted with [email or web address]/02/2022. FINDINGS: There is a healing distal left fibular fracture. The anklejoint space and mortise appear normal. There is no evidence of an ankleeffusion. There is soft tissue swelling about the ankle. Plantar calcaneal spur is present. There is suggestion of pes planovalgus on this nonweightbearing exam. Arterial atherosclerosis is present. IMPRESSION: Healing distal left fibular fracture with left ankle soft tissueswelling. THIS IS AN ELECTRONICALLY VERIFIED FINAL REPORT 10/20/2021 10:45 AM - Electronically signed by Frank FERGUSON: MARTY Report ID: [id number] Reading Location: [id number] Kvng Nash DO IMG XR PROCEDURES Final Result documented in this encounter Visit Diagnoses Diagnosis Closed fracture of distal end of left fibula- Primary Closed fracture of distal end of left fibula documented in this encounter Care Teams Baseball Hand Sewer Relationship Specialty Start Date End Date Ryann Galdamez PA PCP - General Solar Field Installation Crew Member 04/02/21 01/22/22 documented as of this encounter
--- OUTSIDE RECORDS SUMMARY | 2024-03-13 01:10 | XMS_ITS | Encounter Summary ---
Author Organization [facility] Healthcare Address [address] [place] [address] Care Team Providers Care Transmission Superintendent Name Role Phone Ryann Galdamez Primary Care Provider [phone] Reason for Referral * Diagnostic Imaging (Routine) - Closed Specialty Diagnoses / Procedures Referred By Indra muñoz Referred To Contact Diagnoses Closed fracture of distal end of left fibula Procedures XR Ankle Left 3 or More Views Kvng Nash DO [facility] [address] [place], [place] [address] Phone: tel: fax: [address] [phone] Referral ID Status Reason Start Date Expiration Date Visits Re quested Visits Authorized [id number] Closed 10/17/2021 11/16/2022 1 1 Reason for Visit * Diagnostic Imaging (Routine) - Closed Specialty Diagnoses / Procedures Referred By Indra muñoz Referred To Contact Diagnoses Closed fracture of distal end of left fibula Procedures XR Ankle Left 3 or More Views Kvng Nash DO [address] 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 Gender Identity Not on file Sexual Orientation Not on file documented as of this encounter Medications at Time of Discharge CALCIUM CARBONATE ORAL Take 600 mg by mouth 2 (two) times a day acetaminophen (TYLENOL) 500 mg tablet Take 2 tablets (1,000 mg total) by mouth as needed for pain When Needed 3 ALPRAZolam (XANAX) 0.5 mg tabletIndication s:Anxiety Take 0.5 tablets (0.25 mg total) by mouth 2 (two) times a day as needed for anxiety 60 tablet 09/12/2021 2 busPIRone (BUSPAR) 5 mg tabletIndication s:Anxiety TAKE 1 TABLET BY MOUTH THREE TIMES A DAY 270 tablet 3 10/14/2021 2 carvediloL (COREG) 25 mg tablet TAKE 1 TABLET BY MOUTH TWICE A DAY WITH FOOD 180 tablet 3 10/07/2021 3 dilTIAZem CD/XR/XT (Cardizem CD) 120 mg 24 hr capsuleIndicatio ns:hypertension Take 1 capsule (120 mg total) by mouth 2 (two) times a day 60 capsule 11 07/24/2021 3 Eliquis 5 mg tablet TAKE 1 TABLET BY MOUTH TWICE A DAY 60 tablet 11 09/23/2021 3 FLUoxetine (PROzac) 40 mg capsule Take 1 capsule (40 mg total) by mouth daily 90 capsule 3 08/26/2021 3 furosemide (LASIX) 40 mg tablet Take 0.5 tablets (20 mg total) by mouth daily 30 tablet 11 09/12/2021 2 glipiZIDE (GLUCOTROL) 10 mg tabletIndication s:type 2 diabetes mellitus Take 10 mg by mouth 2 (two) times a day before breakfast and lunch 2 levothyroxine (SYNTHROID) 50 mcg tablet Take 1 tablet (50 mcg total) by mouth daily 30 tablet 11 01/21/2021 2 losartan (COZAAR) 100 mg tablet Take 1 tablet (100 mg total) by mouth daily 30 tablet 11 07/02/2021 3 metFORMIN (GLUCOPHAGE) 500 mg tablet Take 1 tablet (500 mg total) by mouth 2 (two) times a day with meals 180 tablet 1 09/12/2021 2 vihnqvyk-nph-dfs n-FA-lutein 8 mg iron-400 mcg-300 mcg tablet Take by mouth 4 rosuvastatin (CRESTOR) 20 mg tablet TAKE 1 TABLET BY MOUTH EVERY DAY 90 tablet 3 09/19/2021 3 spironolactone (ALDACTONE) 25 mg tablet Take 1 tablet (25 mg total) by mouth daily 30 tablet 11 07/02/2021 3 zolpidem (AMBIEN) 10 mg tabletIndication s:Sleep-Onset Insomnia Take 1 tablet (10 mg total) by mouth nightly as needed for sleep 90 tablet 09/24/2021 2 documented as of this encounter Discharge Disposition Disposition Code Departure Means Destination Discharge to home or self care documented in this encounter Plan of Treatment Not on file documented as of this encounter Procedures Procedure Name Priority Date/Time Associated Diagnosis Comments XR ANKLE LEFT 3 OR MORE VIEWS Schedule Routine, Read Routine (OP Routine) 10/17/2021 11:10 AM CDT Closed fracture of distal end [...] AM T: ??10/20/2021 10:45 AM Report ID: [id number] Reading Location: ??[id number] Procedure Note Frank Ferguson MD - 10/20/2021 EXAM DESCRIPTION: XR ANKLE LEFT 3 OR MORE VIEWS REASON FOR STUDY: fracture Follow up evaluation, intermittent mild pain and mild swelling TECHNIQUE: Three views weight-bearing submitted with [email or web address]/02/2022. FINDINGS: There is a healing distal left [...] 10:45 AM - Electronically signed by Frank Ferguson M.D. MF: [email or web address] Report ID: [id number] Reading Location: [place] [address] Kvng Nash DO IMG XR PROCEDURES Final Result documented in this encounter Visit Diagnoses Diagnosis Closed fracture of distal end of left fibula documented in this encounter Care Teams Transmission Superintendent Relationship Specialty Start Date End Date Ryann Galdamez PA PCP - General Supervisor Channel Process 04/02/21 01/22/22 documented as of this encounter
--- OUTSIDE RECORDS SUMMARY | 2024-03-13 01:10 | XMS_ITS | Encounter Summary ---
Author Organization [facility] Medical Group Address [address] [facility] [address] [place] [address] Care Team Providers Care Citrix Consultant Name Role Phone Chris Mendes MD Unavailable [phone] Keli Orozco RN Unavailable Unavailable Alysa Newton RN Unavailable [phone] Cuba Larsen MD Primary Care Provider [phone] Reason for Visit * Reason Onset Date Comments ACO Quality Outreach 07/24/2022 ESSENCE TRAVIS ORITY INITIATIVE Encounter Details Date Type Department Care Team (Late st Contact Info) Description 07/24/2022 Telephone [facility] Medical [facility] Family Medicine [address] [facility] [address] [place] [address] Rosa M Pearce MA [address] [place] [address] [address] [place] [address] ACO Quality Outreach (ESSENCE PRIORITY INITIATIVE) Social History Tobacco Use Types Packs/Day Years [...] on file 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 Spoke to patient who agreed to scheduling an appointment. Patient has now been rescheduled for 08/13/2022. Rosa M Pearce CMA Patient Quality Turret Lathe Operator [facility] [phone] documented in this encounter Plan of Treatment Not on file documented as of this encounter Visit Diagnoses Not on filedocumented in this encounter Care Teams Citrix Consultant Relationship Specialty Start Date End Date Cuba Larsen MD [address] [facility] [address] [place] [address] PCP - General Family Medicine 01/23/22 Chris Mendes MD Referring Physician Cardiology 12/23/21 Keli Orozco, primary teacherVeterinary Technician Assistant Cardiology 12/23/21 04/15/23 Alysa Newton, RN [address] [facility] [address] [place] [address] Veterinary Technician Assistant Cardiology 12/23/21 documented as of this encounter
--- OUTSIDE RECORDS SUMMARY | 2024-03-13 01:10 | XMS_ITS | Encounter Summary ---
Author Organization [facility] Healthcare Address [address] [place] [address] Care Team Providers Care Steam And Power Superintendent Name Role Phone Ryann Galdamez Primary Care Provider [phone] Chris Mendes MD Unavailable [phone] Keli Orozco RN Unavailable Unavailable Alysa Newton RN Unavailable [phone] Encounter Details Date Type Department Care Team (Late st Contact Info) Description 01/17/2022 Telephone [facility] Transplant Heart [address] [address] [address] [place] [address] Kori Dorsey Social History Tobacco Use Types [...] on file 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 Dr Mendes did not want to make any changes to her med regimen when we saw her in clinic on 01/13 so I will send a new script of Furosemide 40 mg daily. * Telephone Encounter - Kori Dorsey - 01/17/2022 10:26 AM CDT Would like to discuss her Furosemide dose. She's been taking 40mg, but the script she has is 20mg. documented in this encounter Plan of Treatment Not on file documented as of this encounter Visit Diagnoses Not on filedocumented in this encounter Discontinued Medications Medication Sig Discontinue Reason Start Date End Da te furosemide (LASIX) 20 mg tablet Take 1 tablet (20 mg total) by mouth daily 01/15/2022 01/17/2022 documented as of this encounter Care Teams Steam And Power Superintendent Relationship Specialty Start Date End Date Ryann Galdamez PA PCP - General Nylon Mender 04/02/21 01/22/22 Chris Mendes MD Referring Physician Cardiology 12/23/21 Keli Orozco RN Car Dumper Operator Helper Cardiology 12/23/21 04/15/23 Alysa Newton, RN [address] [address] Car Dumper Operator Helper Cardiology 12/23/21 documented as of this encounter
--- OUTSIDE RECORDS SUMMARY | 2024-03-13 01:10 | XMS_ITS | Encounter Summary ---
Author Organization [facility] Medical Group Address [address] [facility] [address] [place] [address] Care Team Providers Care Drafter Cartographic Name Role Phone Chris Mendes MD Unavailable [phone] Keli Orozco RN Unavailable Unavailable Alysa Newton RN Unavailable [phone] Cuba Larsen MD Primary Care Provider [phone] Reason for Visit * Reason Comments [facility]-up [facility] Encounter Details Date Type Department Care Team (Late st Contact Info) Description 05/19/2022 3:15 PM EXTERMINATOR Office Visit [facility] Medical Group Family Medicine [address] 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 Gender Identity Not on file Sexual Orientation Not on file documented as of this encounter Last Filed Vital Signs Vital Sign Reading Time Taken Comments Blood Pressure 120/82 05/19/2022 3:21 PM EXTERMINATOR Pulse 49 05/19/2022 3:21 PM EXTERMINATOR Temperature 36.1 ??C (97 ??F) 05/19/2022 3:21 PM EXTERMINATOR Respiratory Rate 18 05/19/2022 3:21 PM EXTERMINATOR Oxygen Saturation 93% 05/19/2022 3:21 PM EXTERMINATOR Inhaled Oxygen Concentration - - Weight 78.8 kg (173 lb 12.8 oz) 05/19/2022 3:21 PM EXTERMINATOR Height 154.9 cm (5' 1 ) 05/19/2022 3:21 PM EXTERMINATOR Body Mass Index 32.84 05/19/2022 3:21 PM EXTERMINATOR documented in this encounter Ordered Prescriptions Prescription Sig Dispense Quantity Refills Last Filled Start Date End Date benzonatate (TESSALON) 100 mg capsuleIndications :Cough Take 1 capsule (100 mg total) by mouth 3 (three) times a day as needed for cough 20 capsule 05/19/2022 3 azithromycin (ZITHROMAX) 250 mg tablet Take 2 tabs (500 mg) by mouth today, than 1 tab (250 mg) daily for 4 days. 6 tablet 05/19/2022 3 documented in this encounter Progress Notes * Cuba Larsen MD - 05/19/2022 3:15 PM CST Images from the original note were not included. Chief Complaint Patient presents with [facility] for bronchitis 7 days of symptoms. Has some cough, cold, congestion. Postnasal drip, mild Sore throat. Cough. Mildly productive. No fever. Nonsmoker. Otherwise active. Allergy history. Er/ steroids Review of Systems Constitutional: Positive for fatigue. Negative for fever. HENT: Positive for postnasal drip, rhinorrhea, sinus pain and sore throat. Respiratory: Positive for cough. Negative for shortness of breath. Cardiovascular: Negative for chest pain and leg swelling. Gastrointestinal: Negative for abdominal pain and nausea. Musculoskeletal: Negative for back pain and neck pain. Neurological: Negative for seizures and headaches. Psychiatric/Behavioral: Negative for confusion. The patient is not nervous/anxious. BP 120/82 (BP Location: Left arm, Patient Position: Sitting) Pulse (!) 49 Temp 36.1 ??C (97 ??F) (Transdermal) Resp 18 Ht 154.9 cm (5' 1 ) Wt 78.8 kg (173 lb 12.8 oz) SpO2 93% BMI 32.84kg/m?? Physical Exam Awake alert o times 3 Lungs CLEAR Heart Regular GI soft Assessment/Plan Diagnoses and all orders for this visit: URI with cough/ acute and congestion (J06.9) (Primary)/ COVID -19 eval ABX- add Zpak Steroids- finish steroids Antivirals- none Other meds- Tessalon perles TID Push fluids OTC products prn FU if sx not better We did discuss COVID -19. / Education / Vaccinations / Natural history Cuba Larsen MD Orders Placed This Encounter azithromycin (ZITHROMAX) 250 mg tablet Sig: Take 2 tabs (500 mg) by mouth today, than 1 tab (250 mg) daily for 4 days. Dispense: 6 tablet Refill: 0 benzonatate (TESSALON) 100 mg capsule Sig: Take 1 capsule (100 mg total) by mouth 3 (three) times a day as needed for cough Dispense: 20 capsule Refill: 0 RMINATOR documented in this encounter Plan of Treatment Not on file documented as of this encounter Visit Diagnoses Diagnosis Acute cough- Primary documented in this encounter Discontinued Medications Medication Sig Discontinue Reason Start Date End Da te FLUoxetine (PROzac) 40 mg capsule Take 1 capsule (40 mg total) by mouth daily 08/26/2021 05/19/2022 documented as of this encounter Care Teams Drafter Cartographic Relationship Specialty Start Date End Date Cuba Larsen MD [address] [facility] [address] [place] [address] PCP - General Family Medicine 01/23/22 Chris Mendes MD Referring Physician Cardiology 12/23/21 Keli Orozco, rice dryer mechanicSpray Gun Sizer Cardiology 12/23/21 04/15/23 Alysa Newton, RN [address] [address] Spray Gun Sizer Cardiology 12/23/21 documented as of this encounter
--- OUTSIDE RECORDS SUMMARY | 2024-03-13 01:10 | XMS_ITS | Encounter Summary ---
Author Organization [facility] Healthcare Address [address] [place] [address] Care Team Providers Care Children Librarian Name Role Phone Ryann Galdamez Primary Care Provider [phone] Encounter Details Date Type Department Care Team (Late st Contact Info) Description 07/30/2021 Telephone 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 HR 70-80's. Per EMG will add Chlorthalidone 25mg daily and give another update in 2 weeks. She is fine with plan. * Telephone Encounter - Maryann Faye - 07/30/2021 10:39 AM CDT LC -- patient was asked to call back to day and talk to you about her BP's. Pls call back documented in this encounter Plan of Treatment Not on file documented as of this encounter Visit Diagnoses Not on filedocumented in this encounter Care Teams Children Librarian Relationship Specialty Start Date End Date Ryann Galdamez PA PCP - General Lubrication Servicer 04/02/21 01/22/22 documented as of this encounter
--- OUTSIDE RECORDS SUMMARY | 2024-03-13 01:10 | XMS_ITS | Encounter Summary ---
Author Organization [facility] Address [address] [place] [address] Care Team Providers Care Manager Cardiovascular Name Role Phone Ryann Galdamez Primary Care Provider +1- [phone] Reason for Visit * Reason Onset Date Comments Dull Headaches 08/01/2021 Encounter Details Date Type Department Care Team (Late st Contact Info) Description 08/01/2021 Telephone [facility] Family Medicine [address] [place] [address] Ryann Galdamez PA [facility] [place] [address] Dull Headaches Social History Tobacco Use Types Packs/Day Years [...] on file 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 Pearce - she notes that the headaches are located in posterior neck at base of hairline/skull. She takes a tylenol and they resolve. She notes that she stopped her buspar yesterday thinking this was the precipitant, and she notes the headaches have resolved. She did take a buspar this morning and has yet to have a headache. She is using the xanax prn due to anxiety. Discussed stopping the buspar and monitoring the anxiety this weekend, continuing with the xanax prn. I asked her to call us Thursday with an update. She additionally notes that she has been having good bp of 122/86 and pulse 81 this morning. She ishappy with this but notes that she has been started on chlorthalidone and is also on lasix and spironolactone. She notes that she called cv office to confirm meds and hasn't heard back - I told her [employer] message and ask them to contact her. Asked her to let us know by Thursday if she hasn't heard from their office. * Telephone Encounter - Nohemi Calvo - 08/01/2021 10:52 AM CDT Shireen would like to talk to you about having dull headaches every day. She suspects it is caused by Buspar, but she is not sure and would like to discuss this with you. documented in this encounter Plan of Treatment Not on file documented as of this encounter Visit Diagnoses Not on filedocumented in this encounter Care Teams Manager Cardiovascular Relationship Specialty Start Date End Date Ryann Galdamez PA PCP - General Dyeing Machine Tender 04/02/21 01/22/22 documented as of this encounter
--- OUTSIDE RECORDS SUMMARY | 2024-03-13 01:10 | XMS_ITS | Encounter Summary ---
Author Organization [facility] Healthcare Address [address] [place] [address] Care Team Providers Care Psychology Teacher Name Role Phone Ryann Galdamez Primary Care Provider +1- [phone] Encounter Details Date Type Department Care Team (Late st Contact Info) Description 07/17/2021 Telephone [facility] and [facility] Transplant Heart [address] 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 Gender Identity Not on file Sexual Orientation Not on file documented as of this encounter Ordered Prescriptions Prescription Sig Dispense Quantity Refills Last Filled Start Date End Date dilTIAZem CD/XR/XT (Cardizem CD) 120 mg 24 hr capsuleIndications :hypertension Take 1 capsule (120 mg total) by mouth 2 (two) times a day 60 capsule 07/17/2021 2 dilTIAZem CD/XR/XT (Cardizem CD) 120 mg 24 hr capsule Take 1 capsule (120 mg total) by mouth daily 30 capsule 07/17/2021 2 documented in this encounter Miscellaneous Notes * Addendum Note - Davin Patino RN - 07/17/2021 5:11 PM CDTAddended by: DAVIN PATINO on: 07/17/2021 05:11 PM Modules accepted: Orders * Telephone Encounter - Davin Patino RN - 07/17/2021 4:40 PM CDT Had spoken to patient earlier today with BMP from 07/15 all WNL after restarting Aldactone 25mg daily. Also started back Dilt CD 120mg daily on 07/09 see note. AM BP's 150-160's, come down in afternoon 120-130's but then back up in the pm 150- 160 again. HR in the 70's. She is not dizzy and feeling well. Reviewed with EMG and will make Dilt BID for now and she how she does. Spoke back with patient this pm and she is fine with plan, will continue to monitor and give updatelater next week. * Telephone Encounter - Davin Patino RN - 07/17/2021 2:38 PM CDT Error. documented in this encounter Plan of Treatment Not on file documented as of this encounter Visit Diagnoses Not on filedocumented in this encounter Discontinued Medications Medication Sig Discontinue Reason Start Date End Da te dilTIAZem CD/XR/XT (Cardizem CD) 120 mg 24 hr capsule Take 1 capsule (120 mg total) by mouth daily Reorder 07/17/2021 07/17/2021 documented as of this encounter Care Teams Psychology Teacher Relationship Specialty Start Date End Date Ryann Galdamez PA PCP - General Gymnastics Coach 04/02/21 01/22/22 documented as of this encounter
--- OUTSIDE RECORDS SUMMARY | 2024-03-13 01:10 | XMS_ITS | Encounter Summary ---
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 * Telephone Encounter - Kori Dorsey - 07/24/2021 12:54 PM CDT LMOP line asking for Diltiazem 120 BID. Her pharmacy told her it was denied. Should she still Take? [facility] [place] documented in this encounter Plan of Treatment Not on file documented as of this encounter Visit Diagnoses Not on filedocumented in this encounter Discontinued Medications Medication Sig Discontinue Reason Start Date End Da te dilTIAZem CD/XR/XT (Cardizem CD) 120 mg 24 hr capsuleIndications:hyper tension Take 1 capsule (120 mg total) by mouth 2 (two) times a day Reorder 07/17/2021 07/24/2021 documented as of this encounter Care Teams Circular Saw Edge Fuser Relationship Specialty Start Date End Date Ryann Galdamez PA PCP - General Boom Worker 04/02/21 01/22/22 documented as of this encounter
--- OUTSIDE RECORDS SUMMARY | 2024-03-13 01:10 | XMS_ITS | Encounter Summary ---
Author Organization [facility] Address [address] [place] [address] Care Team Providers Care Green Marketing Specialist Name Role Phone Chris Mendes MD Unavailable Keli Orozco RN Unavailable Unavailable Alysa Newton RN Unavailable [phone] Cuba Larsen MD Primary Care Provider [phone] Reason for Visit * Reason Onset Date Comments Appointment Request 07/24/2022 Encounter Details Date Type Department Care Team (Late st Contact Info) Description 07/24/[address] 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 Make an appointment after test completed * Telephone Encounter - Selina Bojorquez - 07/24/2022 11:24 AM CDT Medical Question/Miscellaneous Caller???s Concern: Spoke with patient and she relayed she made an appointe to see Dr Larsen on July 29 at 10:00am, when cs went to check, this was not on there, cs offered to make appointment at time of call but patent wanted to be sure nothing was wrong with the appointment she made at [place] office and has on paper, she relayed she is a fairly new patient and if this needs to be changed, that is okay with her. She is supposed to see him after her Echo testing and blood draw, wanted follow up call for clarification for appointment. Caller???s Call back #: [phone] Does message need to be routed? Yes-Action Needed documented in this encounter Plan of Treatment Not on file documented as of this encounter Visit Diagnoses Not on filedocumented in this encounter Care Teams Green Marketing Specialist Relationship Specialty Start Date End Date Cuba Larsen MD [address] [place] [address] PCP - General Family Medicine 01/23/22 Chris Mendes MD Referring Physician Cardiology 12/23/21 Keli Orozco, surtass analystTumbling Barrel Painter Cardiology 12/23/21 04/15/23 Alysa Newton, RN [address] [facility] [address] [place] [address] Tumbling Barrel Painter Cardiology 12/23/21 documented as of this encounter
--- OUTSIDE RECORDS SUMMARY | 2024-03-13 01:10 | XMS_ITS | Encounter Summary ---
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 Stated these numbers were fine and no med changes indicated. Has Dec ROV. * Telephone Encounter - Humaira Liz - 10/11/2021 8:35 AM CDT PT called to give LC her req BP trends. Please give her a C/B. documented in this encounter Plan of Treatment Not on file documented as of this encounter Visit Diagnoses Not on filedocumented in this encounter Care Teams Commercial Art Instructor Relationship Specialty Start Date End Date Ryann Galdamez PA PCP - General Literacy Coordinator 04/02/21 01/22/22 documented as of this encounter
--- OUTSIDE RECORDS SUMMARY | 2024-03-13 01:10 | XMS_ITS | Encounter Summary ---
Author Organization [facility] Address [address] [place] [address] Phone Care Team Providers Care Sustainment Logistics Analyst Name Role Phone Ryann Galdamez Primary Care Provider [phone]- [phone] Encounter Details Date Type Department Care Team (Late st Contact Info) Description 09/03/2021 Telephone [facility] Cardiology [address] [facility] [address] [facility] Advanced Medicine [address]th [place] [address] [place] [address] Chris Mendes MD [address] [facility] [address] [place], [place] [id number] Social History Tobacco Use Types Packs/Day Years [...] on file 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 The nurse pillowcase sewer would like the nurse to reach out to the pt. documented in this encounter Plan of Treatment Not on file documented as of this encounter Visit Diagnoses Not on filedocumented in this encounter Care Teams Sustainment Logistics Analyst Relationship Specialty Start Date End Date Ryann Galdamez PA PCP - General Complex Case Manager 04/02/21 01/22/22 documented as of this encounter
--- OUTSIDE RECORDS SUMMARY | 2024-03-13 01:10 | XMS_ITS | Encounter Summary ---
Author Organization [facility] Address [address] [place] [address] Phone Care Team Providers Care Crew Boat Operator Name Role Phone Ryann Galdamez Primary Care Provider [phone]- [phone] Reason for Visit * Consultation (Routine) - Closed Specialty Diagnoses / Procedures Referred By Indra t Referred To Contact Neurology Diagnoses Cerebrovascular accident (CVA), unspecified mechanism (HCC) David Mitchell MD [address] [place] [address] Phone: tel: fax: [facility] [address] [facility] [address] [facility] [address] [place] [address] Phone: tel: fax: Referral ID Status Reason Start Date Expiration Date V isits Requested Visits Authorized [id number] Closed Specialty Services Required 05/29/2021 06/28/2022 1 1 Encounter Details Date Type Department Care Team (Latest Contact Info) Description 09/10/2021 10:30 AM CDT Office Visit [facility] [address] [facility] Advanced Medicine [address] [place] [address] Araceli Salcedo MD [address] [place] [address] 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 (CMS/HCC) (HCC) (Primary Dx); Atrial fibrillation with RVR (CMS/HCC) (HCC); Essential hypertension; Hyperlipidemia, unspecified hyperlipidemia type; Essential tremor Social History Tobacco Use Types Packs/Day Years [...] on file 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 Pearce is an 81-year-old woman here for hospital follow-up of right MCA territory ischemic stroke. HISTORY OF PRESENT ILLNESS: Since hospital discharge, the patient states that she has been doing very well with therapy. She states that she has become more dizzy and lightheaded and Dr. Mendes is working on her blood pressurein the context of her atrial fibrillation. She is also concerned about an occasional tremor with activities. She states her mother also had a similar tremor. She denies new episodes of weakness, numbness, vision loss, difficulty speaking, or difficulty ambulating. She is performing all ADLs at home. ALLERGIES: AMLODIPINE, MILI INHIBITORS, CITALOPRAM, LISINOPRIL, HYDROCHLOROTHIAZIDE. MEDICATIONS: Reviewed in [facility]. PAST MEDICAL, FAMILY, SOCIAL HISTORY: Reviewed in Epic. REVIEW OF SYSTEMS: All other systems negative except as per HPI. PHYSICAL EXAMINATION: VITAL SIGNS: Blood pressure 87/59. Pulse 57. Weight 150 pounds. GENERAL: The patient is well dressed and well groomed, in no apparent distress. NEUROLOGICAL EXAMINATION: MENTAL STATUS: Awake and alert with fluent speech and intact comprehension. Attention is normal. Naming, repetition, and comprehension are intact. CRANIAL NERVES: There is no ptosis. Extraocular movements are conjugate without nystagmus. Visual lopes were intact to bedside testing. Minimal left facial weakness sparing the forehead. Speech is clear without dysarthria or dysphonia. Tongue protrusion is midline. MOTOR: Strength is 5/5 in bilateral upper and lower extremities except 4/5 in the distal left lowerextremity due to discomfort. There is no drift, but there is a minimal left fix. SENSATION: There is no simultagnosia to double simultaneous stimulation. REFLEXES: These are 2 and symmetric at the biceps, triceps, brachioradialis, knees, and ankles. COORDINATION: [id number]-[id number] and rapid alternating movements are minimally slow on the left. There is a low-amplitude, high-frequency, postural kinetic tremor in bilateral upper extremities. GAIT: This is narrow based with minimally decreased stride length on the left. ASSESSMENT: 1. 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 2. Atrial fibrillation. 3. Hypertension. 4. Hyperlipidemia. 5. Essential tremor. PLAN: 1. PCP should continue efforts to maintain blood pressure less than 130/80 in accordance with current guidelines. The patient is currently working with her fitness assistant related to her symptomatic hypotension. 2. Patient should continue high-intensity statin therapy in accordance with 2018 guidelines with LDL goal less than 70. 3. Patient should continue Eliquis twice daily for stroke prevention in atrial fibrillation. 4. As the patient's tremor is currently nondisabling, there is no clear reason for medical management at this time. If it becomes more concerning for the patient, we may need to refer her to my colleagues in the Movement Disorders Section given concerns about medication interactions. 5. I would like to see the patient back in my clinic in approximately 6 months in order to review symptom pattern and determine if additional medical management or diagnostic testing is necessary at that time. Thank you for allowing me to participate in the care of this patient. Please do not hesitate to contact me with additional questions or concerns. 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
--- OUTSIDE RECORDS SUMMARY | 2024-03-13 01:10 | XMS_ITS | Encounter Summary ---
Author Organization [facility] Healthcare Address [address] [place] [address] Care Team Providers Care Textile Worker Name Role Phone Chris Mendes MD Unavailable [phone] Keli Orozco RN Unavailable Unavailable Alysa Newton RN Unavailable [phone] Cuba Larsen MD Primary Care Provider [phone] Encounter Details Date Type Department Care Team (Late st Contact Info) Description 07/23/2022 Telephone [facility] and [facility] Transplant Heart [address] [address] [phone] [place] [address] Maryann Faye Social History Tobacco Use Types [...] on file 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 Asking that a 30 day supply be sent to [facility] in [place], [place] documented in this encounter Plan of Treatment Not on file documented as of this encounter Visit Diagnoses Not on filedocumented in this encounter Discontinued Medications Medication Sig Discontinue Reason Start Date End Da te dilTIAZem CD 120 mg 24 hr capsule TAKE 1 CAPSULE BY MOUTH 2 TIMES A DAY. Reorder 07/23/2022 07/23/2022 documented as of this encounter Care Teams Textile Worker Relationship Specialty Start Date End Date Cuba Larsen MD [address] [address] PCP - General Family Medicine 01/23/22 Chris Mendes MD Referring Physician Cardiology 12/23/21 Keli Orozco, after school program coordinatorRetail Furniture Sales Cardiology 12/23/21 04/15/23 Alysa Newton, ARMANI [address] [address] Retail Furniture Sales Cardiology 12/23/21 documented as of this encounter
--- OUTSIDE RECORDS SUMMARY | 2024-03-13 01:10 | XMS_ITS | Encounter Summary ---
Author Organization [facility] Medical Group Address [address] [place] [address] Care Team Providers Care Cover Cutter Machine Name Role Phone Ryann Galdamez Primary Care Provider [phone]- [phone] Reason for Visit * Reason Onset Date Comments Test Results 11/06/2021 Encounter Details Date Type Department Care Team (Late st Contact Info) Description 11/06/2021 Telephone [facility] Family Medicine [address] [place] [address] Ryann Galdamez PA [facility] [place] [address] Test Results Social History Tobacco Use Types [...] on file 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 Yes Where were results relayed from in the chart? [facility] Caller's Callback #: [phone] Additional Questions/Comments: patient understood, no questions. Does message need to be routed?No documented in this encounter Plan of Treatment Not on file documented as of this encounter Visit Diagnoses Not on filedocumented in this encounter Care Teams Cover Cutter Machine Relationship Specialty Start Date End Date Ryann Galdamez PA PCP - General Coat Cutter 04/02/21 01/22/22 documented as of this encounter
--- OUTSIDE RECORDS SUMMARY | 2024-03-13 01:10 | XMS_ITS | Encounter Summary ---
Author Organization 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 documented in this encounter Plan of Treatment Not on file documented as of this encounter Visit Diagnoses Not on filedocumented in this encounter Care Teams Brewmaster Relationship Specialty Start Date End Date Ryann Galdamez PA PCP - General Joy Loader 04/02/21 01/22/22 documented as of this encounter
--- OUTSIDE RECORDS SUMMARY | 2024-03-13 01:10 | XMS_ITS | Encounter Summary ---
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
--- OUTSIDE RECORDS SUMMARY | 2024-03-13 01:10 | XMS_ITS | Encounter Summary ---
Author Organization [facility] Healthcare Address [address] [place] [address] Care Team Providers Care Medical Practice Administrator Name Role Phone Chris Sanchez MD Unavailable [phone] Keli Orozco RN Unavailable Unavailable Alysa Newton RN Unavailable [phone] Cuba Larsen MD Primary Care Provider [phone] Reason for Referral * Cardiology (Routine) - Closed Specialty Diagnoses / Procedures Referred By Indra muñoz Referred To Contact Diagnoses Acute on chronic systolic CHF (congestive heart failure) (CMS/HCC) (HCC) Procedures Transthoracic Echo (TTE) Complete W Doppler/CF Chris Sanchez MD Phone: tel: fax: [address] [phone] Referral ID Status Reason Start Date Expiration Date Visits Re quested Visits Authorized [id number] Closed 01/13/2022 02/12/2023 1 1 Reason for Visit * Cardiology (Routine) - Closed Specialty Diagnoses / Procedures Referred By Contac t Referred To Contact Diagnoses Acute on chronic systolic CHF (congestive heart failure) (CMS/HCC) (HCC) Procedures Transthoracic Echo (TTE) Complete W Doppler/CF Chris Sanchez MD Phone: tel: fax: [address] [phone] Referral ID Status Reason Start Date Expiration Date Visits Re quested Visits Authorized [id number] Closed 01/13/2022 02/12/2023 1 1 Encounter Details Date Type Department Care Team (Latest Contact Info) Description 07/28/2022 12:29 PM CDT - 07/28/2022 11:59 PM CDT Hospital Encounter [facility] Cardiac Diagnostic Lab 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 90 capsule 06/23/2022 3 furosemide (LASIX) 40 mg tablet Take 1 [...] TABLET BY MOUTH EVERY DAY 90 tablet 1 01/28/2022 3 loratadine (CLARITIN) 10 mg tablet Take 1 tablet (10 mg total) by mouth daily as needed for allergies 90 tablet 1 10/21/2021 3 losartan (COZAAR) 100 mg tablet TAKE 1 TABLET BY MOUTH EVERY DAY 90 tablet 3 06/23/2022 4 metFORMIN (GLUCOPHAGE) 500 mg tablet TAKE 1 TABLET BY MOUTH TWICE A DAY WITH MEALS 180 tablet 06/23/2022 3 jnldeyfa-hmy-dyzs -FA-lutein 8 mg iron-400 mcg-300 mcg tablet [...] MOUTH DAILY. 90 tablet 3 06/16/2022 4 zolpidem (AMBIEN) 10 mg tabletIndications :Sleep disturbance TAKE 1 TABLET BY MOUTH NIGHTLY NEEDED FOR SLEEP 90 tablet 07/02/2022 3 documented as of this encounter Discharge Disposition Disposition Code Departure Means Destination Discharge to home or self care documented in this encounter Plan of Treatment Not on file documented as of this encounter Procedures Procedure Name Priority Date/Time Associated Diagnosis Comments TRANSTHORACIC ECHO (TTE) COMPLETE W DOPPLER/CF W CONTRAST Routine 07/28/2022 2:23 PM CDT Acute on chronic systolic CHF (congestive heart failure) (CMS/HCC) (HCC) documented in this encounter Results * TRANSTHORACIC ECHO (TTE) COMPLETE W DOPPLER/CF W CONTRAST (07/28/2022 2:23 PM CDT) LV EF 52 % CARDIOREPORT Anatomical Region Laterality Modality Ultrasound 07/28/2022 1:00 PM CDT Narrative 07/28/2022 3:31 PM CDT Patient name: Prema Pearce Date of test: 07/28/2022 Type of test: TTE w/Doppler Hospital #: [id number] Date of : 1940 (F) Stack Matcher: Lindsay Sanchez RDCS Referring Physician: CHRIS SANCHEZ MD Contrast Agent: 0.8 ml Optison Administered, (2.2 ml wasted). Contrast Administered by: Maddison Joshi RN Supervised/Interpreted by: Frank Horn MD Diagnosis: Location: [facility] Reason for test: Acute chronic systolic CHF MV Structure: Normal, ?MV Motion: Normal, ?? Mitral Annulus: moderately calcified AV Structure: tricuspid and is stenotic, ?? AV Motion: restricted Aotic root: Normal, ?TM: Normal, ?? PV: Normal Valvular Vegetations: none seen, ?Mass/Thrombi: none seen RA: mildly increased Measurements: ?M-Mode ?Normal ? Aotic Root: ? <3.8 ? LA: ? <3.8 ? RV: ? <2.8 ? LV(ED): ? <5.7 ? LV(ES): ? Variable ?2D Linear Normal ? Aotic Root: 2.8 cm ?<3.6 ? Ao Indexed: 1.6 cm/M2 <2.0 ? LA: ? <3.8 ? RV: ? 3.1 cm ?<4.2 ? LV(ED): ? 4.4 cm ?<5.3 ? LV(ES): ? 3.3 cm ?<3.5 ?2D Vol. ?? Normal ?Indexed ?? Indexed Normal RA: ? 63.0 ml ? 35.5 ml/M2 ?9-33 ? LA: ? 116.0 ml ?65.3 ml/M2 ?16-34 ? RV: ? <11.6 ? LV(ED): ? 102.0 ml ??46-106 ?57.4 ml/M2 ?<62 ? LV(ES): ? 49.0 ml ?? 14-42 ? 27.6 ml/M2 ?<25 ?3D Vol. ? Indexed Normal LV(ED): ?<62 ? LV(ES): ?<24 ? LV EF: 52 % ?? (Normal: >=54%) ?? LV Septum: 1.0 cm ?(Normal: <0.9 cm) Wall Motion Scoring (1=Normal 2=Hypo 3=Akinetic 4=Dyskin./Aneurysm 0=Not visualized) Parasternal Long [place]:MAS=1 BAS=1 MIL=1 NIGHAT=1 Parasternal Short [place]:MAS=1 MIS=1 AR=1 MIL=1 MAL=1 MA=1 Apical 4 Chambers:=1 MIS=1 BIS=1 BAL=1 MAL=1 AL=1 AC=1 Apical 2 Chambers:AI=1 AR=1 BI=1 BA=1 MA=1 AA=1 AC=1 LV Global Longitudinal Strain: -11.4% ??(Normal <-17%) RV Global Longitudinal Strain: LV Function: Low normal to mildly decreased LV systolic function, LVEF 50-55%. ?? RV Function: Low normal Septal Motion: Normal Pericardial Effusion: none seen Atrial Septum: Normal DOPPLER/COLOR FLOW DOPPLER RESULTS: Diastolic Function: Grade II, increased mean LA pres. Tricuspid Valve: mild TV regurgitation Pulmonic Valve: Mild AK AV Regurgitation: No AR seen AV Stenosis: moderate AV Area: 1.0 cm2 AV Pressure Gradient (mmHg): Mean: 12, Peak:20 MV Regurgitation: Mild MR MV Stenosis: no MS MV Area: ??cm2 MV Pressure Gradient (mmHg): Mean: 0 MV ERO: ??cm Regurg. Vol.: ??ml/beat Regurg. Frac.: ??% PA Pressure: 40 mmHg DOPPLER/COLOR FOLOW DOPPLER COMMENTS: No AR seen, Mild MR, moderate , no MS, mild TV regurgitation, Mild AK. Diastolic function: Grade II, increased mean LA pres. ?? LVOT/ALESSANDRA VTI 19.0/54.9, DI 0.35. ??LVOTd 1.9 cm. CONTRAST: 0.8 ml Optison Administered, (2.2 ml wasted). SUMMARY: Atrial fibrillation with slow to moderate ventricular response. ??Normal LV size and wall thickness with minimally decreased LV systolic function, LVEF 52%, mild to moderately impaired LV strain, and grade II diastolic dysfunction with increased est. LV filling pressure. Normal RV size with low normal RV function. ??Marked LAE and mild KAROL. ??Normal aorta. ??Dilated IVC with preserved inspiratory collapse. ??Moderate , est. AV area 1.0 cm2. Moderate MVAC with mild MR. ??Mild TR and AK. ??Est. PASP 40 mm Hg, assuming an RA pressure of 10 mm Hg. ??No pericardial effusion. ??Compared with 08/31/20, the est. AV area has decreased from 1.2 to 1.0 cm2 and the LVEF has decreased from 66% to 52%. Confirmed on ??07/28/2022 - 15:31:34 by Frank Horn MD By signing this report, the attending mussel farmer certifies that he or she has personally supervised and interpreted the echocardiogram and has reviewed and or edited and agrees with the written comments contained within the report. Procedure Note Frank Horn MD - 07/28/2022 Patient name: Prema Pearce Date of test: 07/28/2022 Type of test: TTE w/Doppler [facility] #: 0 Date of : 1940 (F) Stack Matcher: Lindsay Sanchez RDCS Referring Physician: CHRIS SANCHEZ MD Contrast Agent: 0.8 ml Optison Administered, (2.2 ml wasted). Contrast Administered by: Maddison Joshi RN Supervised/Interpreted by: Frank Horn MD Diagnosis: Location: [facility] Reason for test: Acute chronic systolic CHF MV Structure: Normal, MV Motion: Normal, Mitral Annulus: moderately calcified AV Structure: tricuspid and is stenotic, AV Motion: restricted Aotic root: Normal, TM: Normal, PV: Normal Valvular Vegetations: none seen, Mass/Thrombi: none seen RA: mildly increased Measurements: M-Mode Normal Aotic Root: <3.8 LA: <3.8 RV: <2.8 LV(ED): <5.7 LV(ES): Variable 2D Linear Normal Aotic Root: 2.8 cm <3.6 Ao Indexed: 1.6 cm/M2 <2.0 LA: <3.8 RV: 3.1 cm <4.2 LV(ED): 4.4 cm <5.3 LV(ES): 3.3 cm <3.5 2D Vol. Normal Indexed Indexed Normal RA: 63.0 ml 35.5 ml/M2 9-33 LA: 116.0 ml 65.3 ml/M2 16-34 RV: <11.6 LV(ED): 102.0 ml 46-106 57.4 ml/M2 <62 LV(ES): 49.0 ml 14-42 27.6 ml/M2 <25 3D Vol. Indexed Normal LV(ED): <62 LV(ES): <24 LV EF: 52 % (Normal: >=54%) LV Septum: 1.0 cm (Normal: <0.9 cm) Wall Motion Scoring (1=Normal 2=Hypo 3=Akinetic 4=Dyskin./Aneurysm 0=Not visualized) Parasternal Long [place]:MAS=1 BAS=1 MIL=1 NIGHAT=1 Parasternal Short [place]:MAS=1 MIS=1 AR=1 MIL=1 MAL=1 MA=1 Apical 4 Chambers:=1 MIS=1 BIS=1 BAL=1 MAL=1 AL=1 AC=1 Apical 2 Chambers:AI=1 AR=1 BI=1 BA=1 MA=1 AA=1 AC=1 LV Global Longitudinal Strain: -11.4% (Normal <-17%) RV Global Longitudinal Strain: LV Function: Low normal to mildly decreased LV systolic function, LVEF 50-55%. RV Function: Low normal Septal Motion: Normal Pericardial Effusion: none seen Atrial Septum: Normal DOPPLER/COLOR FLOW DOPPLER RESULTS: Diastolic Function: Grade II, increased mean LA pres. Tricuspid Valve: mild TV regurgitation Pulmonic Valve: Mild AK AV Regurgitation: No AR seen AV Stenosis: moderate AV Area: 1.0 cm2 AV Pressure Gradient (mmHg): Mean: 12, Peak:20 MV Regurgitation: Mild MR MV Stenosis: no MS MV Area: cm2 MV Pressure Gradient (mmHg): Mean: 0 MV ERO: cm Regurg. Vol.: ml/beat Regurg. Frac.: % PA Pressure: 40 mmHg DOPPLER/COLOR FOLOW DOPPLER COMMENTS: No AR seen, Mild MR, moderate , no MS, mild TV regurgitation, Mild AK. Diastolic function: Grade II, increased mean LA pres. LVOT/ALESSANDRA VTI 19.0/54.9, DI 0.35. LVOTd 1.9 cm. CONTRAST: 0.8 ml Optison Administered, (2.2 ml wasted). SUMMARY: Atrial fibrillation with slow to moderate ventricular response. Normal LV size and wall thickness with minimally decreased LV systolic function, LVEF 52%, mild to moderately impaired LV strain, and grade II diastolic dysfunction with increased est. LV filling pressure. Normal RV size with low normal RV function. Marked LAE and mild KAROL. Normal aorta. Dilated IVC with preserved inspiratory collapse. Moderate , est. AV area 1.0 cm2. Moderate MVAC with mild MR. Mild TR and AK. Est. PASP 40 mm Hg, assuming an RA pressure of 10 mm Hg. No pericardial effusion. Compared with 08/31/20, the est. AV area has decreased from 1.2 to 1.0 cm2 and the LVEF has decreased from 66% to 52%. Confirmed on 07/28/2022 - 15:31:34 by Frank Horn MD By signing this report, the attending mussel farmer certifies that he or she has personally supervised and interpreted the echocardiogram and has reviewed and or edited and agrees with the written comments contained within the report. us Chris Sanchez MD CV ECHO PROCEDURES Final Re sult documented in this encounter Visit Diagnoses Diagnosis Acute on chronic systolic CHF (congestive heart failure) (CMS/HCC) ([facility]) documented in this encounter Administered Medications Inactive Administered Medications - up to 3 most recent administrations Medication Order MAR Action Action Date Dose Rate Site perflutren protein-a (OPTISON) 3 mL in sodium chloride 0.9% 8 mL syringe 1-8 mL, intravenous, Once in imaging, contrast, Starting on 07/28/22 at 1308, For 1 dose, Intra-Procedure (CV) Contrast Given 07/28/2022 2:23 PM CDT 2 mL documented in this encounter Care Teams Medical Practice Administrator Relationship Specialty Start Date End Date Cuba Larsen MD [address] [place] [address] PCP - General Family Medicine 01/23/22 Chris Sanchez MD Referring Physician Cardiology 12/23/21 Keli Orozco, vice chairEmergency Generator Mechanic Cardiology 12/23/21 04/15/23 Alysa Newton, RN [address] [place] [address] Emergency Generator Mechanic Cardiology 12/23/21 documented as of this encounter
--- OUTSIDE RECORDS SUMMARY | 2024-03-13 01:10 | XMS_ITS | Encounter Summary ---
Author Organization [facility] Address [address] [place] [address] Phone Care Team Providers Care Poultry Feed Supervisor Name Role Phone Ryann Galdamez Primary Care Provider [phone] Chris Sanchez MD Unavailable [phone] Keli Orozco RN Unavailable Unavailable Alysa Newton RN Unavailable [phone] Reason for Referral * Cardiology (Routine) - Closed Specialty Diagnoses / Procedures Referred By Indra t Referred To Contact Diagnoses Acute on chronic systolic CHF (congestive heart failure) (CMS/HCC) (HCC) Procedures Transthoracic Echo (TTE) Complete W Doppler/CF Chris Sanchez MD Phone: tel: fax: [address] [address] Referral ID Status Reason Start Date Expiration Date Visits Re quested Visits Authorized [id number] Closed 01/13/2022 02/12/2023 1 1 Reason for Visit * Consultation (Routine) - Closed Specialty Diagnoses / Procedures Referred By Contac t Referred To Contact Cardiology Diagnoses Essential hypertension Atrial fibrillation, unspecified type (HCC) Chronic heart failure with preserved ejection fraction (CMS/HCC) (HCC) Cathleen Walker MD Phone: tel: fax: [facility] (All Locations) Referral ID Status Reason Start Date Expiration Date V isits Requested Visits Authorized [id number] Closed Specialty Services Required 01/02/2022 01/01/2023 12 12 Encounter Details Date Type Department Care Team (Late st Contact Info) Description 01/13/2022 1:00 PM CDT Office Visit [facility] Cardiology 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 Gender Identity Not on file Sexual Orientation Not on file documented as of this encounter Last Filed Vital Signs Vital Sign Reading Time Taken Comments Blood Pressure 131/82 01/13/2022 12:50 PM CDT Pulse 71 01/13/2022 12:50 PM CDT Temperature 36.3 ??C (97.3 ??F) 01/13/2022 12:50 PM C DT Respiratory Rate - - Oxygen Saturation 96% 01/13/2022 12:50 PM CDT Inhaled Oxygen Concentration - - Weight 74 kg (163 lb 3.2 oz) 01/13/2022 12:50 PM CDT Height 154.9 cm (5' 1 ) 01/13/2022 12:50 PM CDT Body Mass Index 30.84 01/13/2022 12:50 PM CDT documented in this encounter Patient Instructions * Patient Instructions* Keli Orozco RN - 01/13/2022 1:00 PM CDT Our office number is [phone]. Aracelis are RNs No medication changes Return in 6 months for follow up and Echo documented in this encounter Progress Notes * Lucas Herrera MD - 01/13/2022 1:00 PM CDT Images from the original note were not included. Miguel Rojas Department of Medicine Cardiovascular Division Chris Sanchez M.D. [facility] [place] [address], [address] [place] [id number], [email or web address] Date of Visit: 01/13/2022 Patient's Name: Prema Pearce : 1940 PIETRO: 01/13/2022 PROBLEM LIST: Persistent atrial fibrillation DCCV and sotalol intiation ~ 2009, discontinued 12/2018 Treated with rate control until submassive pulmonary emboli in 05/2019, amiodarone initiated Amiodarone discontinued 06/2019 due GI side effects CVA 2021 due to being off of anticoagulation for elective procedure Cardiomyopathy, recovered ejection fraction, 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-mediated Echocardiogram 05/2019 with LVEF 38%, down from 51% and RV enlargement and dysfunction, occurred in setting of AF with RVR and submassive pulmonary embolism LVEF 66%, August 2020 Aortic stenosis, moderate Moderate CAD on 08/2020 [facility] Submassive pulmonary embolism 05/2019, provoked, occurred 1 week after left distal femoral replacement for an open fracture Right lower extremity DVT 05/2019 Hypertension Diabetes mellitus type II, insulin dependent Obstructive sleep apnea, on CPAP Hypothyroidism Left adrenal nodule HISTORY OF PRESENT ILLNESS: I had the pleasure of seeing Prema Pearce today at [facility]. As you know, she is a 81 y.o. female with a history of atrial fibrillation, CVA, aortic stenosis and pulmonary embolism who presents for follow up. Denies any chest tightness, dyspnea on exertion, orthopnea, PND, LE swelling, palpitations, presyncope, or syncope. Has some difficulty with ambulation because of instability in right leg from knee replacement. Denies any falls. Is compliant with medications but has not been using CPAP due to throat irritation. Today, takes aldactone 25, losartan 100, dilt 120, coreg 25 BID, lasix 40 mg daily. Was prescribed lasix 20 mg but has been taking 40 mg daily. Has BP values with her today, ranging from ~130-140/80-90s. Measures her BP as soon as she wakes up, before taking any of her antihypertensives. 131/82 today in office. PAST MEDICAL HISTORY Past Medical History: Diagnosis Date Adrenal nodule (CMS/HCC) (HCC) Anxiety Aortic stenosis, moderate Atrial fibrillation (CMS/HCC) (HCC) Cardiomyopathy (HCC) Diabetes mellitus (HCC) Dyslipidemia GERD (gastroesophageal reflux disease) Heart murmur HFrEF (heart failure with reduced ejection fraction) (CMS/HCC) (HCC) Hyperlipidemia Hypertension Hypothyroidism Insomnia Mitral regurgitation NSTEMI (non-ST elevated myocardial infarction) (CMS/HCC) (HCC) Obesity AYAD on CPAP Patellar sleeve fracture of left knee PONV (postoperative nausea and vomiting) Pulmonary embolism ([facility]) Sleep apnea Stroke ([facility]/HCC) ([facility]) Zenker's diverticulum CURRENT MEDICATIONS Current Outpatient Medications: acetaminophen (TYLENOL) 500 mg tablet, Take 1,000 mg by mouth as needed for pain When Needed, Disp:, Rfl: ALPRAZolam (XANAX) 0.5 mg tablet, TAKE 0.5 TABLETS BY MOUTH 2 TIMES A DAY NEEDED FOR ANXIETY., Disp: 60 tablet, Rfl: 0 CALCIUM CARBONATE ORAL, Take 600 mg by mouth 2 (two) times a day , Disp: , Rfl: carvediloL (COREG) 25 mg tablet, TAKE 1 TABLET BY MOUTH TWICE A DAY WITH FOOD, Disp: 180 tablet, Rfl: 3 cholecalciferol (VITAMIN D-3) 50,000 unit capsule, Take 50,000 Units by mouth once a week, Disp: , Rfl: cranberry extract 200 mg capsule, Take by mouth, Disp: , Rfl: dilTIAZem CD/XR/XT (Cardizem CD) 120 mg 24 hr capsule, Take 1 capsule (120 mg total) by mouth 2 (two) times a day, Disp: 60 capsule, Rfl: 11 Eliquis 5 mg tablet, TAKE 1 TABLET BY MOUTH TWICE A DAY, Disp: 60 tablet, Rfl: 11 FLUoxetine (PROzac) 20 mg capsule, Take 60mg daily (one 40mg and one 20mg at a time)., Disp: 90 capsule, Rfl: 1 furosemide (LASIX) 40 mg tablet, Take 0.5 tablets (20 mg total) by mouth daily (Patient taking differently: Take 20 mg by mouth daily Taking one full tablet), Disp: 90 tablet, Rfl: 3 glipiZIDE (GLUCOTROL) 10 mg tablet, Take 10 mg by mouth 2 (two) times a day before breakfast and lunch, Disp: , Rfl: levothyroxine (SYNTHROID) 50 mcg tablet, Take 1 tablet (50 mcg total) by mouth daily, Disp: 30 tablet, Rfl: 11 loratadine (CLARITIN) 10 mg tablet, Take 1 tablet (10 mg total) by mouth daily as needed for allergies, Disp: 90 tablet, Rfl: 1 losartan (COZAAR) 100 mg tablet, Take 1 tablet (100 mg total) by mouth daily, Disp: 30 tablet, Rfl:11 metFORMIN (GLUCOPHAGE) 500 mg tablet, Take 1 tablet (500 mg total) by mouth 2 (two) times a day with meals, Disp: 180 tablet, Rfl: 1 doqtalkq-kae-kiqu-FA-lutein 8 mg iron-400 mcg-300 mcg tablet, Take by mouth, Disp: , Rfl: rosuvastatin (CRESTOR) 20 mg tablet, TAKE 1 TABLET BY MOUTH EVERY DAY, Disp: 90 tablet, Rfl: 3 spironolactone (ALDACTONE) 25 mg tablet, Take 1 tablet (25 mg total) by mouth daily, Disp: 30 tablet, Rfl: 11 zolpidem (AMBIEN) 10 mg tablet, Take 1 tablet (10 mg total) by mouth nightly as needed for sleep, Disp: 90 tablet, Rfl: 0 FLUoxetine (PROzac) 40 mg capsule, Take 1 capsule (40 mg total) by mouth daily, Disp: 90 capsule, Rfl: 3 ALLERGY Amlodipine, Prasanth inhibitors, Citalopram, Lisinopril, and Lisinopril-hydrochlorothiazide FAMILY HISTORY Family History Problem Relation Age of Onset [...] by TW Conv) Anesthesia problems Neg Hx SOCIAL HISTORY Social History Socioeconomic History Marital status: Tobacco Use Smoking status: Never Smoker Smokeless tobacco: Never Used Vaping Use Vaping Use: Never used Substance and Sexual Activity Alcohol use: Yes Comment: 1/mo Drug use: Never Sexual activity: Defer Social History Narrative Feels safe at home REVIEW OF SYSTEMS: All systems negative unless otherwise stated in the HPI PHYSICAL EXAM: BP 131/82 (BP Location: Left arm, Patient Position: Sitting) Pulse 71 Temp 36.3 ??C (97.3 ??F) Ht 154.9 cm (5' 1 ) Wt 74 kg (163 lb 3.2 oz) SpO2 96% BMI 30.84 kg/m?? General: Well appearing, No pain or distress, well nourished Eyes: HERNESTO/EOMI, Conjuctiva Clear ENT: External ears/nose normal Neck: Supple Respiratory: Clear to ausculation bilaterally; no wheezing/rales/rhonchi; respirations nonlabored Cardiovascular: Irregular, normal S1 and S2. No S3 or S4. Mild 2/6 crescendo murmur at base. Carotid upstrokes brisk bilaterally and without bruits. Gastrointestinal: soft, non-tender abdomen Extremities: no cyanosis or clubbing or edema Musculoskeletal: no obvious joint deformities Skin: no obvious rash or bruising Psychiatric: normal affect Neurologic: awake/alert, no focal deficits ADDITIONAL DIAGNOSTIC DATA ECG, 05/25/2021 Atrial fibrillation, HR 87. New dynamic anterior precordial TWI in the setting of CVA. Transthoracic echocardiogram, 08/31/2020 Atrial Fibrillation; Calcific aortic valve disease; Moderate Aortic Stenosis; LA is markedly dilated. Calcified mitral annulus; Small LV cavity size with normal to hyperdynamic LV systolic function and EF 66 %. Mild Tricuspid Regurgitation with upper-normal estimated Pulmonary Artery Systolic Pressure. As compared to previous study (08/18/2019 ), there are no appreciable changes. ASSESSMENT AND PLAN In summary, it was a pleasure to see Prema Pearce in clinic today for initial evaluation of atrial fibrillation, cardiomyopathy, and moderate aortic stenosis. HFrecEF 2019 LVEF 38% improved to LVEF 66% in August 2020. She has stable NYHA class I-II symptoms and appears euvolemic on exam. She has recovered systolic function on guideline therapy and with control of possibly tachycardia-mediated cardiomyopathy. -Cont lasix daily -Cont meds as below -Repeat TTE in 6-12 months HTN BP moderately controlled. Still on spironolactone 25 mg daily, carvedilol 25 mg BID, diltiazem 120 daily and losartan 100 mg daily. -Cont spironolactone, coreg, losartan, diltiazem Afib She remains in permanent irregular rhythm today. She has resumed her anticoagulation and will remain on it without cessation. Had CVA within past year believed to be embolic. -Cont diltiazem, coreg as above -Cont Eliquis TTE showed moderate aortic stenosis. -Repeat imaging in 6-12 months We will plan to see her back in 6 months or sooner if necessary. Lucas Herrera MD Internal Medicine PGY-3 Cosigned by Chris Sanchez MD at 01/13/2022 8:07 PM CDT Associated attestation - Chris Sanchez MD - 01/13/2022 8:07 PM CDT I have seen and examined the patient. I agree with the findings and plan of care as documented in the resident/fellow's note. My total encounter time on 01/13/2022 was 25 minutes which was spent in the activities [...] #: 0 Date of : 1940 (F) [place] Guide: Lindsay Sanchez RDCS Referring Physician: CHRIS SANCHEZ MD Contrast Agent: 0.8 ml Optison Administered, (2.2 ml wasted). Contrast Administered by: Maddison Joshi RN Supervised/Interpreted by: Frank Horn MD Diagnosis: Location: [facility] Reason for test: Acute chronic systolic CHF [...] 2=Hypo 3=Akinetic 4=Dyskin./Aneurysm 0=Not visualized) Parasternal Long [place]:MAS=1 BAS=1 MIL=1 NIGHAT=1 Parasternal Short [place]:MAS=1 MIS=1 NE=1 MIL=1 MAL=1 MA=1 Apical 4 Chambers:=1 MIS=1 BIS=1 BAL=1 MAL=1 AL=1 AC=1 Apical 2 Chambers:AI=1 NE=1 BI=1 BA=1 MA=1 AA=1 AC=1 LV Global Longitudinal Strain: -11.4% ??(Normal <-17%) RV Global Longitudinal Strain: LV Function: Low normal to mildly decreased LV systolic function, LVEF 50-55%. ?? RV Function: Low normal Septal Motion: Normal Pericardial Effusion: none seen Atrial Septum: Normal DOPPLER/COLOR FLOW DOPPLER RESULTS: Diastolic Function: Grade II, increased mean LA pres. Tricuspid Valve: mild TV regurgitation Pulmonic Valve: Mild NE AV Regurgitation: No AR seen AV Stenosis: [...] , no MS, mild TV regurgitation, Mild NE. Diastolic function: Grade II, increased mean LA [...] MVAC with mild MR. ??Mild TR and NE. ??Est. PASP 40 mm Hg, assuming an RA pressure of 10 mm Hg. ??No pericardial effusion. ??Compared with 08/31/20, the est. AV area has decreased from 1.2 to 1.0 cm2 and the LVEF has decreased from 66% to 52%. Confirmed on ??07/28/2022 - 15:31:34 by Frank Horn MD By signing this report, the attending marine photographer certifies that he or she has personally supervised and interpreted the echocardiogram and has reviewed and or edited and agrees with the written comments contained within the report. Procedure Note Frank Horn MD - 07/28/2022 Patient name: Prema Pearce Date of test: 07/28/2022 Type of test: TTE /[facility] #: 0 Date of : 1940 (F) [place] Guide: Lindsay Sanchez RDCS Referring Physician: CHRIS SANCHEZ MD Contrast Agent: 0.8 ml Optison Administered, (2.2 ml wasted). Contrast Administered by: Maddison Joshi RN Supervised/Interpreted by: Frank Horn MD Diagnosis: Location: [facility] Reason for test: Acute chronic systolic CHF [...] 2=Hypo 3=Akinetic 4=Dyskin./Aneurysm 0=Not visualized) Parasternal Long [place]:MAS=1 BAS=1 MIL=1 NIGHAT=1 Parasternal Short [place]:MAS=1 MIS=1 NE=1 MIL=1 MAL=1 MA=1 Apical 4 Chambers:=1 MIS=1 BIS=1 BAL=1 MAL=1 AL=1 AC=1 Apical 2 Chambers:AI=1 NE=1 BI=1 BA=1 MA=1 AA=1 AC=1 LV Global Longitudinal Strain: -11.4% (Normal <-17%) RV Global Longitudinal Strain: LV Function: Low normal to mildly decreased LV systolic function, LVEF 50-55%. RV Function: Low normal Septal Motion: Normal Pericardial Effusion: none seen Atrial Septum: Normal DOPPLER/COLOR FLOW DOPPLER RESULTS: Diastolic Function: Grade II, increased mean LA pres. Tricuspid Valve: mild TV regurgitation Pulmonic Valve: Mild NE AV Regurgitation: No AR seen AV Stenosis: [...] , no MS, mild TV regurgitation, Mild NE. Diastolic function: Grade II, increased mean LA [...] MVAC with mild MR. Mild TR and NE. Est. PASP 40 mm Hg, assuming an RA pressure of 10 mm Hg. No pericardial effusion. Compared with 08/31/20, the est. AV area has decreased from 1.2 to 1.0 cm2 and the LVEF has decreased from 66% to 52%. Confirmed on 07/28/2022 - 15:31:34 by Frank Horn MD By signing this report, the attending marine photographer certifies that he or she has personally supervised and interpreted the echocardiogram and has reviewed and or edited and agrees with the written comments contained within the report. Chris Sanchez MD CV ECHO PROCEDURES Final Re sult documented in this encounter Visit Diagnoses Diagnosis Acute on chronic systolic CHF (congestive heart failure) (CMS/HCC) (HCC)- Primary Acute on chronic systolic CHF (congestive heart failure) (CMS/[facility]) ([facility]) documented in this encounter Historical Medications * This list may reflect changes made after this encounter. cranberry extract 200 mg capsule Take by mouth 02/03/2023 added in this encounter Care Teams Poultry Feed Supervisor Relationship Specialty Start Date End Date Ryann Galdamez PA PCP - General Delivery Supervisor 04/02/21 01/22/22 Chris Sanchez MD Referring Physician Cardiology 12/23/21 Keli Orozco, eco industrial development consultantWoolen Mill Utility Worker Cardiology 12/23/21 04/15/23 Alysa Newton, RN [address] [address] [place] Utility Worker Cardiology 12/23/21 documented as of this encounter
--- OUTSIDE RECORDS SUMMARY | 2024-03-13 01:10 | XMS_ITS | Encounter Summary ---
Author Organization [facility] Address [address] [place] [address] Care Team Providers Care Butcher Meat Name Role Phone Ryann Galdamez Primary Care Provider [phone] Encounter Details Date Type Department Care Team (Late st Contact Info) Description 11/22/2021 Orders Only [facility] Family Medicine [address] [place] [address] Ryann Galdamez PA [address] [place] [address] Type 2 diabetes mellitus with other specified complication, unspecified whether lobsterman insulin use (HCC) (Primary Dx) Social History Tobacco Use [...] on file 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 Referral will be worked in the order it was received. documented in this encounter Plan of Treatment Not on file documented as of this encounter Visit Diagnoses Diagnosis Type 2 diabetes mellitus with other specified complication, unspecified whether lobsterman insulin use (HCC)- Primary documented in this encounter Care Teams Butcher Meat Relationship Specialty Start Date End Date Ryann Galdamez PA PCP - General Re Recording Mixer 04/02/21 01/22/22 documented as of this encounter
--- OUTSIDE RECORDS SUMMARY | 2024-03-13 01:10 | XMS_ITS | Encounter Summary ---
Author Organization [facility] Address [address] [facility] [address] [place] [address] Care Team Providers Care Steamer Gum Candy Name Role Phone Chris Mendes MD Unavailable [phone] Keli Orozco RN Unavailable Unavailable Alysa Newton RN Unavailable [phone] Ce Larsen MD Primary Care Provider Reason for Visit * Reason Comments Follow-up Pt is here for a karis ck up. She was a pt of Ryann Downing Encounter Details Date Type Department Care Team (Late st Contact Info) Description 02/13/2022 11:15 AM SCHOOL COUNSELOR Office Visit [facility] Medical [facility] at [address] [address] Ce Larsen MD [address] [address] Type 2 diabetes mellitus without complication, without long-term current use of insulin (CMS/HCC) (HCC) (Primary Dx); Essential hypertension; Gastro-esophageal reflux disease without esophagitis; Paroxysmal atrial fibrillation (CMS/HCC) (HCC); Acquired hypothyroidism; WAI (generalized anxiety disorder); Kidney stone; Weakness of both lower extremities; Anxiety Social History Tobacco Use Types Packs/Day Years Used Date Smoking Tobacco: Never Smokeless Tobacco: Never Alcohol Use Standard Drinks/Week Comments Yes 0 (1 standard drink = 0.6 oz pur e alcohol) 1/mo AUDIT-C Answer Date Recorded Q1: How often do you have a drink containing alc ohol? Never 10/21/2021 Average Number of Drinks Not on file Q3: How often do you have si x or more drinks on one occasion? Never 10/21/2021 PHQ-2 Answer Date Recorded PHQ-2 Total Score (If total score is 3 or more points, staff should administer the PHQ-9) 0 02/13/2022 Comments No Sex and Gender Information Value Date Recorded Sex Assigned at Not on file Legal Sex Female 4:20 AM SCHOOL COUNSELOR Gender Identity Not on file Sexual Orientation Not on file documented as of this encounter Last Filed Vital Signs Vital Sign Reading Time Taken Comments Blood Pressure 122/78 02/13/2022 11:36 AM SCHOOL COUNSELOR Pulse 62 02/13/2022 11:36 AM SCHOOL COUNSELOR Temperature 36.9 ??C (98.5 ??F) 02/13/2022 1 1:36 AM SCHOOL COUNSELOR Respiratory Rate - - Oxygen Saturation 98% 02/13/2022 11: 36 AM SCHOOL COUNSELOR Inhaled Oxygen Concentration - - Weight 76.1 kg (167 lb 12.8 oz) 022 11:36 AM SCHOOL COUNSELOR Height 154.9 cm (5' 1 ) 02/13/2022 11:3 6 AM SCHOOL COUNSELOR Body Mass Index 31.71 02/13/2022 11:36 AM SCHOOL COUNSELOR documented in this encounter Ordered Prescriptions Prescription Sig Dispense Quantity Refills Last Filled Start Date End Date ALPRAZolam (XANAX) 0.5 mg tabletIndications: Anxiety Take 1 tablet (0.5 mg total) by mouth 2 (two) times a day as needed for anxiety 60 tablet 2 02/13/2022 2 documented in this encounter Progress Notes * Ce Larsen MD - 02/13/2022 11:15 AM CST Images from the original note were not included. Subjective/Objective Patient ID: Prema Pearce is a 82 y.o. female. Chief Complaint Follow-up (Pt is here for a check up. She was a pt of Ryann Downing) 82-year-old female. She doing pretty good. Weight stable. Habits negative. She sees Urology /orthopedic /cardiac. No shortness of breath chest pain. Takes her meds. Mood over all stable Current Outpatient Medications Medication Sig Dispense Refill acetaminophen (TYLENOL) 500 mg tablet Take 1,000 mg by mouth as needed for pain When Needed ALPRAZolam (XANAX) 0.5 mg tablet TAKE 0.5 TABLETS BY MOUTH 2 TIMES A DAY NEEDED FOR ANXIETY. 60 tablet 0 CALCIUM CARBONATE ORAL Take 600 mg by mouth 2 (two) times a day carvediloL (COREG) 25 mg tablet TAKE 1 TABLET BY MOUTH TWICE A DAY WITH FOOD 180 tablet 3 cholecalciferol (VITAMIN D-3) 50,000 unit capsule Take 50,000 Units by mouth once a week cranberry extract 200 mg capsule Take by mouth dilTIAZem CD/XR/XT (Cardizem CD) 120 mg 24 hr capsule Take 1 capsule (120 mg total) by mouth 2 (two) times a day 60 capsule 11 Eliquis 5 mg tablet TAKE 1 TABLET BY MOUTH TWICE A DAY 60 tablet 11 FLUoxetine (PROzac) 20 mg capsule Take 60mg daily (one 40mg and one 20mg at a time). 90 capsule 1 furosemide (LASIX) 40 mg tablet Take 1 tablet (40 mg total) by mouth daily 90 tablet 3 glipiZIDE (GLUCOTROL) 10 mg tablet Take 10 mg by mouth 2 (two) times a day before breakfast and lunch levothyroxine (SYNTHROID) 50 mcg tablet TAKE 1 TABLET BY MOUTH EVERY DAY 90 tablet 1 losartan (COZAAR) 100 mg tablet Take 1 tablet (100 mg total) by mouth daily 30 tablet 11 metFORMIN (GLUCOPHAGE) 500 mg tablet Take 1 tablet (500 mg total) by mouth 2 (two) times a day withmeals 180 tablet 1 jltodmaz-emh-azmo-FA-lutein 8 mg iron-400 mcg-300 mcg tablet Take by mouth rosuvastatin (CRESTOR) 20 mg tablet TAKE 1 TABLET BY MOUTH EVERY DAY 90 tablet 3 spironolactone (ALDACTONE) 25 mg tablet Take 1 tablet (25 mg total) by mouth daily 30 tablet 11 zolpidem (AMBIEN) 10 mg tablet Take 1 tablet (10 mg total) by mouth nightly as needed for sleep 90 tablet 0 FLUoxetine (PROzac) 40 mg capsule Take 1 capsule (40 mg total) by mouth daily 90 capsule 3 loratadine (CLARITIN) 10 mg tablet Take 1 tablet (10 mg total) by mouth daily as needed for allergies 90 tablet 1 No current facility-administered medications for this visit. Review of Systems Constitutional: Positive for fatigue. Negative for fever. Respiratory: Negative for cough and shortness of breath. Cardiovascular: Negative for chest pain and leg swelling. Gastrointestinal: Negative for abdominal pain and nausea. Musculoskeletal: Positive for back pain. Negative for neck pain. Neurological: Negative for seizures and headaches. Psychiatric/Behavioral: Negative for confusion. The patient is nervous/anxious. No results found for this or any previous visit (from the past 336 hour(s)). Vitals BP 122/78 (BP Location: Right arm, Patient Position: Sitting) Pulse 62 Temp 36.9 ??C (98.5 ??F) (Oral) Ht 154.9 cm (5' 1 ) Wt 76.1 kg (167 lb 12.8 oz) SpO2 98% BMI 31.71 kg/m?? Physical Exam Constitutional: Appearance: She is [...] Diagnoses and all orders for this visit: Type 2 diabetes mellitus without complication, without long-term current use of insulin ([facility] ([facility]) (E11.9) (Primary) - labs UTD - A1C 6 - diet - exercise Essential hypertension (I10) - low salt diet, exercise - cont meds Gastro-esophageal reflux disease without esophagitis (K21.9) - cont PPI Paroxysmal atrial fibrillation ([facility]) ([facility]) (I48.0) - sees cardio, cont meds Acquired hypothyroidism (E03.9) - follow labs, TSH , normal WAI (generalized anxiety disorder) (F41.1) - stable - some depression as well Ce Larsen MD Orders Placed This Encounter Comprehensive metabolic panel Standing Status: Future Number of Occurrences: 1 Standing Expiration Date: 02/13/2023 Order Specific Question: Has the patient fasted? Answer: No Lipid panel Standing Status: Future Number of Occurrences: 1 Standing Expiration Date: 02/13/2023 Order Specific Question: Has the patient been fasting for 8 hours or more? Answer: No CBC with auto differential Standing Status: Future Number of Occurrences: 1 Standing Expiration Date: 02/13/2023 TSH reflex to free T4 Standing Status: Future Number of Occurrences: 1 Standing Expiration Date: 02/13/2023 Hemoglobin A1c Standing Status: Future Number of Occurrences: 1 Standing Expiration Date: 02/13/2023 Ambulatory referral order to Physical Therapy - Standing Status: Future Standing Expiration Date: 08/14/2022 Referral Priority: Routine Referral Type: Consultation Referral Reason: Specialty Services Required Referral Location: External Order Requested Specialty: Physical Therapy Number of Visits Requested: 99 OL COUNSELOR documented in this encounter Miscellaneous Notes * Addendum Note - Ce Larsen MD - 02/13/2022 11:15 AM CSTAddended by: CE LARSEN on: 02/13/2022 12:05 PM Modules accepted: Orders OL COUNSELOR documented in this encounter Plan of Treatment Not on file documented as of this encounter Procedures Procedure Name Priority Date/Time Associated Diagnosis Comments THYROID FUNCTION CASCADE Routine 07/22/2022 9:18 AM CDT Acquired hypothyroidism CBC WITH AUTO DIFFERENTIAL Routine 07/22/2022 9:18 AM CDT Type 2 diabetes mellitus without complication, without long-term current use of insulin ([facility] ([facility]) HEMOGLOBIN A1C Routine 07/22/2022 9:18 AM CDT Type 2 diabetes mellitus without complication, without long-term current use of insulin ([facility]) ([facility]) LIPID PANEL Routine 07/22/2022 9:18 AM CDT Type 2 diabetes mellitus without complication, without long-term current use of insulin ([facility]) ([facility]) COMPREHENSIVE METABOLIC PANEL Routine 07/22/2022 9:18 AM CDT Type 2 diabetes mellitus without complication, without long-term current use of insulin ([facility]/HCC) (HCC) documented in this encounter Results * (ABNORMAL) Hemoglobin A1c (07/22/2022 9:18 AM CDT) Hgb A1C 6.3(H) <5.7 % of total Hgb [facility] Comment: For someone without known diabetes, [...] A1c for diagnosis of diabetes for children. ? Your request to have a duplicate copy faxed has been acknowledged. ?Queued to: ??[id number] Blood 07/22/2022 9:18 AM CDT 07/22/2022 9:19 AM CDT Narrative [facility] - 07/29/2022 11:28 AM CDT FASTING:YES FASTING: YES Ce Larsen MD LAB BLOOD ORDERABLES [facility] [address] [place] [address] * TSH reflex to free T4 (07/22/2022 9:18 AM CDT) TSH 2.88 0.40 - 4.50 mIU/L [facility] Nesbitt Blood 07/22/2022 9:18 AM CDT 07/22/2022 9:19 AM CDT Narrative [facility] - 07/29/2022 11:28 AM CDT FASTING:YES FASTING: YES Ce Larsen MD LAB BLOOD ORDERABLES Final Re sult [facility] [address] [place] [address] * CBC with auto differential (07/22/2022 9:18 AM CDT) WBC 7.8 3.8 - 10.8 Thousand/u L [facility] RBC, POC 3.88 3.80 - 5.10 Million/uL [facility] Hgb 12.6 11.7 - 15.5 g/dL [facility] Hct 37.7 35.0 - 45.0 % [facility] MCV 97.2 80.0 - 100.0 fL [facility] MCH 32.5 27.0 - 33.0 pg [facility] MCHC 33.4 32.0 - 36.0 g/dL [facility] Rdw 12.8 11.0 - 15.0 % [facility] Platelets 251 140 - 400 Thousand/u L [facility] MPV 10.0 7.5 - 12.5 fL [facility] Neutrophils, abs 5,546 1,500 - 7,800 cells/uL [facility] Lymphocytes, abs 1,482 850 - 3,900 cells/uL [facility] Monocyte abs 640 200 - 950 cells/uL [facility] Eosinophils, abs 101 15 - 500 cells/uL [facility] Basophils, abs 31 0 - 200 cells/uL [facility] Neutrophils 71.1 % [facility] Lymphocyte pct 19.0 % [facility] Monocytes 8.2 % [facility] Eosinophils 1.3 % [facility] Basophils 0.4 % [facility] Blood 07/22/2022 9:18 AM CDT 07/22/2022 9:19 AM CDT Narrative [facility] - 07/29/2022 11:28 AM CDT FASTING:YES FASTING: YES Ce Larsen MD LAB BLOOD ORDERABLES Final Re sult Performing Organization Address [facility] Co de Phone Number JULIO CÉSAR [facility] [address] [phone] * (ABNORMAL) Lipid panel (07/22/2022 9:18 AM CDT) Cholesterol 92 <200 mg/dL [facility] HDL 37(L) > OR = 50 mg/dL [facility] Triglycerides 116 <150 mg/dL [facility] LDL 35 mg/dL (calc) [facility] Comment: Reference [...] LDL-C. Buzz SS et al. WILFRIDO. 2013;310(19): 4361-8332 (http://education.Derivix/faq/UQE688) Chol/HDL ratio 2.5 <5.0 (calc) [facility] Non-HDL, (LDL+VLDL) 55 <130 mg/dL (calc) [facility] Comment: For patients with diabetes plus 1 major ASCVD risk factor, treating to a non-HDL-C goal of <100 mg/dL (LDL-C of <70 mg/dL) is considered a therapeutic option. Blood 07/22/2022 9:18 AM CDT 07/22/2022 9:19 AM CDT Narrative [facility] - 07/29/2022 11:28 AM CDT FASTING:YES FASTING: YES Ce Larsen MD LAB BLOOD ORDERABLES Final Re sult Performing Organization Address [facility] Co de Phone Number JULIO CÉSAR [facility] [address] [phone] * Comprehensive metabolic panel (07/22/2022 9:18 AM CDT) Glucose 95 65 - 99 mg/dL [facility] Comment: ? Fasting reference interval BUN 20 7 - 25 mg/dL [facility] Creatinine 0.72 0.60 - 0.95 mg/dL [facility] eGFR 84 > OR = 60 mL/min/1. 73m2 [facility] Comment: The eGFR is based on the CKD-EPI 2020 equation. To calculate the new eGFR from a previous Creatinine or Cystatin C result, go to https://www.kidney.org/professionals/ kdoqi/gfr%5Fcalculator BUN/creat ratio NOT APPLICABLE 6 - 22 (calc) [facility] Sodium 138 135 - 146 mmol/L [facility] Potassium, pl 4.6 3.5 - 5.3 mmol/L [facility] Chloride 106 98 - 110 mmol/L [facility] CO2 24 20 - 32 mmol/L [facility] Calcium 9.9 8.6 - 10.4 mg/dL [facility] Protein, sr 7.1 6.1 - 8.1 g/dL [facility] Albumin 4.2 3.6 - 5.1 g/dL [facility] GLOBULIN 2.9 1.9 - 3.7 g/dL (calc) [facility] Alb/glob ratio 1.4 1.0 - 2.5 (calc) [facility] Bilirubin, total 0.7 0.2 - 1.2 mg/dL [facility] Alk phos 82 37 - 153 U/L [facility] AST 17 10 - 35 U/L [facility] ALT (SGPT) 16 6 - 29 U/L [facility] Blood 07/22/2022 9:18 AM CDT 07/22/2022 9:19 AM CDT Narrative [facility] - 07/29/2022 11:28 AM CDT FASTING:YES FASTING: YES Ce Larsen MD LAB BLOOD ORDERABLES Final Re sult [facility] [address] [place] [address] documented in this encounter Visit Diagnoses Diagnosis Type 2 diabetes mellitus without complication, without long-term current use of insulin ([facility] ([facility])- Primary Essential hypertension Unspecified essential hypertension Gastro-esophageal reflux disease without esophagitis Paroxysmal atrial fibrillation ([facility]) ([facility]) Atrial fibrillation Acquired hypothyroidism Unspecified hypothyroidism WAI (generalized anxiety disorder) Generalized anxiety disorder Kidney stone Calculus of kidney Weakness of both lower extremities Anxiety Anxiety state, unspecified documented in this encounter Discontinued Medications Medication Sig Discontinue Reason Start Date End Da te ALPRAZolam (XANAX) 0.5 mg tabletIndications:Anxiet y TAKE 0.5 TABLETS BY MOUTH 2 TIMES A DAY NEEDED FOR ANXIETY. Reorder 12/12/2021 02/13/2022 documented as of this encounter Care Teams Steamer Gum Candy Relationship Specialty Start Date End Date Ce Larsen MD [address] [address] PCP - General Family Medicine 01/23/22 Chris Mendes MD Referring Physician Cardiology 12/23/21 Keli Orozco, quitline counselorManager [facility] 12/23/21 04/15/23 Alysa Newton, RN [id number] [place] [address] [facility] 12/23/21 documented as of this encounter
--- OUTSIDE RECORDS SUMMARY | 2024-03-13 01:10 | XMS_ITS | Encounter Summary ---
Author Organization [facility] Address [address] [place] [address] Phone Care Team Providers Care Barrel Reamer Name Role Phone Ryann Galdamez Primary Care Provider [phone] Reason for Visit * Reason Comments Anemia Follow-up * Consultation (Routine) - Closed Specialty Diagnoses / Procedures Referred By Indra muñoz Referred To Contact Hematology Diagnoses Iron deficiency anemia, unspecified iron deficiency anemia type Ryann Galdamez PA Phone: tel: fax: [facility] [address] [place] [phone] Referral ID Status Reason Start Date Expiration Date V isits Requested Visits Authorized [id number] Closed Specialty Services Required 07/01/2021 06/30/2022 12 12 Encounter Details Date Type Department Care Team (Late st Contact Info) Description 10/01/2021 2:15 PM CDT Office Visit [facility] Oncology [address] [place] [phone] Jerson Michael Jr., MD [address] [place] [address] [place] [address] Iron deficiency anemia, unspecified iron deficiency anemia [...] on file Legal Sex Female 4:20 AM LABOR SERVICE REPRESENTATIVE Gender Identity Not on file Sexual Orientation Not on file documented as of this encounter Last Filed Vital Signs Vital Sign Reading Time Taken Comments Blood Pressure 123/74 10/01/2021 2:19 PM CDT Pulse 77 10/01/2021 2:19 PM CDT Temperature 36.8 ??C (98.2 ??F) 10/01/2021 2:19 PM CD T Respiratory Rate 16 10/01/2021 2:19 PM CDT Oxygen Saturation 97% 10/01/2021 2:19 PM CDT Inhaled Oxygen Concentration - - Weight 70.1 kg (154 lb 9.6 oz) 10/01/2021 2:19 P M CDT Height 154.9 cm (5' 1 ) 10/01/2021 2:19 PM CDT Body Mass Index 29.21 10/01/2021 2:19 PM CDT documented in this encounter Progress Notes * Jerson Michael Jr., MD - 10/01/2021 2:15 PM CDT Patient ID: Prema Pearce is a 81 y.o. female, with a history of anemia. Primary Care Provider: Ryann Galdamez PA Assessment/Plan 1. Anemia, iron deficiency component. 2. Treated with oral iron. 3. Normalization of laboratory testing including CBC, iron studies and ferritin on September 24, 2021. No return appointment given. HPI October 01, 2021, comes in today for follow-up. She underwent laboratory testing on September 24. Her hemoglobin is 12.3 g, hematocrit 35.9% with normochromic indices. Serum iron was 84, TIBC 418, 20% saturation and a ferritin of 41. She is not taking oral iron supplementation, and I told her that she should not, since her laboratory values have normalized. The cause of her anemia, most likely was secondary to occult blood loss. She has not had any further problems, from my perspective, she does not require to continue with oral supplementation of iron at this time. No return appointment was given. This is an 81-year-old white female, who comes in today (July 16, 2021) with her brother, because shewas found to be anemic, for further evaluation. ?? She is on chronic anticoagulation therapy, because history of atrial fibrillation, and she also hada provoked pulmonary embolus, after she had a fractured right lower leg. ?? She also tells me that she had problems with a kidney stone, requiring treatments for the same. During that time, she would notice mild hematuria. She also has multiple other comorbidities. ?? She denies any problems with obvious gross GI or type problems otherwise. ?? She was started on iron supplementation, which she has been taking without any untoward side effects. She had laboratory testing on May 27, 2021, she had a hemoglobin of 7.8 g five % with an MCV of83. Serum ferritin of 34. ?? She currently feels better, she is more active. ?? She has had multiple CBC, on June 13, her hemoglobin was 9 g, on June 20 her hemoglobin was 9.8 g,and a CBC performed on July 15 showed her hemoglobin to be 12.2 g. ?? Past medical history is noted. ?? Medication list is noted. ?? Family history is reviewed. This is a [age] year old female, who came here today for evaluation of anemia. She was placed on iron supplementation in May. She has not had any untoward side effects or complications from the medication. ?? Subsequent laboratory testing carried out, have shown that her hemoglobin values have steadily increase, and currently her hemoglobin was up to 12.2 g yesterday. ?? I told them that I would continue with the iron supplementation for another couple of weeks. I would like for her to discontinue the iron supplementation after that, and then we will check a CBC, iron studies and ferritin approximately about 6 weeks later. ?? If she were to begin to have complains about feeling fatigued before her next scheduled appointmentwith me, to let us know immediately. ?? Questions that they had were answered to their satisfaction. Review of Systems Constitutional: Positive for fatigue. HENT: Negative. Eyes: Negative. Respiratory: Negative. Cardiovascular: Negative. Gastrointestinal: Negative. Endocrine: Negative. Genitourinary: Negative. Musculoskeletal: Positive for arthralgias. Skin: Negative. Hematological: Negative. Psychiatric/Behavioral: Negative. Pain: negative. Physical Exam: Vital Signs for this encounter: BSA: There is no height or weight on file to calculate BSA. There were no vitals taken for this visit. Physical Exam Constitutional: General: She is not in acute distress. Appearance: Normal appearance. She is not ill-appearing. Eyes: Extraocular Movements: Extraocular movements intact. Musculoskeletal: Cervical back: Normal range of motion. Skin: Coloration: Skin is not pale. Neurological: Mental Status: She is alert and oriented to person, place, and time. Psychiatric: Mood and Affect: Mood normal. Behavior: Behavior normal. Thought Content: Thought content normal. Judgment: Judgment normal. Performance Status: Asymptomatic documented in this encounter Plan of Treatment Not on file documented as of this encounter Visit Diagnoses Diagnosis Iron deficiency anemia, unspecified iron deficiency anemia type- Primary documented in this encounter Orders Appointment Requests Count Last Ordered Date Fi rst Ordered Date ON[facility]N CLINIC APPOINTMENT REQUEST 1 022 documented in this encounter Care Teams Barrel Reamer Relationship Specialty Start Date End Date Ryann Galdamez PA PCP - General Contracts Director 04/02/21 01/22/22 documented as of this encounter
--- OUTSIDE RECORDS SUMMARY | 2024-03-13 01:10 | XMS_ITS | Encounter Summary ---
Author Organization [facility] Address [address] [place] [address] Care Team Providers Care Screen Machine Operator Name Role Phone Chris Mendes MD Unavailable [phone] Keli Orozco RN Unavailable Unavailable Alysa Newton RN Unavailable [phone] Cuba Larsen MD Primary Care Provider [phone] Reason for Visit * Reason Onset Date Comments Medical Question/Miscellaneous 03/28/2022 Encounter Details Date Type Department Care Team (Late st Contact Info) Description 03/28/2022 Telephone [facility] Family Medicine [address] [facility] [address] [place] [address] Cuba Larsen MD [address] [place] [address] Medical Question/Miscellaneous Social History Tobacco Use Types [...] on file Legal Sex Female 4:20 AM 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 CONTROL SUPERVISOR * Telephone Encounter - Selina Bojorquez - 03/28/2022 10:50 AM CST Medical Question/Miscellaneous Caller???s Concern: Spoke with Danette she relayed that she is going to the theater in [facility] but they are requiring her to show proof of not having Covid, she is unsure of this means and wanted to know what practice thought or could do for her, the time of the event is May 13, she is worried because she cannot get ahold of anybody at the theater and they are require proof of not having covid , wanting follow up Caller???s Call back #: [phone] Does message need to be routed?Yes-Action Needed CONTROL SUPERVISOR documented in this encounter Plan of Treatment Not on file documented as of this encounter Visit Diagnoses Not on filedocumented in this encounter Care Teams Screen Machine Operator Relationship Specialty Start Date End Date Cuba Larsen MD [address] [address] PCP - General Family Medicine 01/23/22 Chris Mendes MD Referring Physician Cardiology 12/23/21 Keli Orozco, sanitation associateCamera Engineer Cardiology 12/23/21 04/15/23 Alysa Newton, RN [address] [address] Camera Engineer Cardiology 12/23/21 documented as of this encounter
--- OUTSIDE RECORDS SUMMARY | 2024-03-13 01:10 | XMS_ITS | Encounter Summary ---
Author Organization [facility] Address [address] [facility] [address] [place] [address] Care Team Providers Care Paper Baling Machine Operator Name Role Phone Chris Mendes MD Unavailable [phone] Keli Orozco RN Unavailable Unavailable Alysa Newton RN Unavailable [phone] Cuba Larsen MD Primary Care Provider Encounter Details Date Type Department Care Team (Late st Contact Info) Description 06/25/2022 Telephone [facility] Family Medicine [address] [facility] [address] [place] [address] Cuba Larsen MD [address] [place] [address] Social History Tobacco Use Types Packs/Day [...] on file 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 * Telephone Encounter - Geovanna Parks - 06/25/2022 11:33 AM CDT Referral Provider Name (if patient is seeing a nurse practitioner or physician loan officer assistant, list the PIT CRANE OPERATOR/PA, but also their collaborating doctor): Araceli Jefferson Specialty: Neurology Address: [address], Zip: [place] [address] Diagnosis Code/Symptom/Reason Patient is being seen: I69.354 Date of Appointment: 07/11 NPI#: [id number] Tax ID#: [id number] Is insurance in chart up to date? Yes Caller???s Callback #: [phone] Additional Comments: Does message need to be routed?Yes-Action Needed documented in this encounter Plan of Treatment Not on file documented as of this encounter Visit Diagnoses Not on filedocumented in this encounter Care Teams Paper Baling Machine Operator Relationship Specialty Start Date End Date Cuba Larsen MD [address] [facility] [address] [place] [address] PCP - General Family Medicine 01/23/22 Chris Mendes MD Referring Physician Cardiology 12/23/21 Keli Orozco, wedding plannerMass Spec Cardiology 12/23/21 04/15/23 Alysa Newton, RN [address] [address] Mass Spec Cardiology 12/23/21 documented as of this encounter
--- OUTSIDE RECORDS SUMMARY | 2024-03-13 01:11 | XMS_ITS | Encounter Summary ---
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 She is needing a verbal order for pt to take spironolactone and potassium. DR. Chava baugh this * Telephone Encounter - Chang Rai - 07/09/2021 2:27 PM CDT Please call Roxann back about medication changes. She would like a call EDIS at [phone] * Telephone Encounter - Suzanne Morales MA - 07/04/2021 4:17 PM CDT LMOM for Roaxnn to call office. * Telephone Encounter - Chang Rai - 07/04/2021 3:04 PM CDT Roxann with [facility] called to give update on patient's blood pressure. This morning it was 169/111 and came down after a couple of hours. It was then checked again and was at 145/90 within 30 mins it was back up to 163/103. The patient also saw her roaster helper on and they wanted to discuss a medication change.Roxann would like a call back at [phone] documented in this encounter Plan of Treatment Not on file documented as of this encounter Visit Diagnoses Not on filedocumented in this encounter Care Teams Building Attendant Relationship Specialty Start Date End Date Ryann Galdamez PA PCP - General Dimension Quarry Supervisor 04/02/21 01/22/22 documented as of this encounter
--- OUTSIDE RECORDS SUMMARY | 2024-03-13 01:11 | XMS_ITS | Encounter Summary ---
Author Organization [facility] Address [address] [facility] [address] [facility] [address] [place] [address] Care Team Providers Care Lathe Machinist Name Role Phone Ryann Galdamez Primary Care Provider [phone] Reason for Visit * Reason Onset Date Comments Hypertension 06/17/2021 Encounter Details Date Type Department Care Team (Late st Contact Info) Description 06/17/2021 Telephone [facility] Family Medicine [address] [place] [address] Susy Waite NP [address] [place] [address] Hypertension Social History Tobacco Use Types Packs/Day Years [...] on file 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 * Telephone Encounter - Susy Morrison NP - 06/17/2021 5:10 PM CDT Received call from after hours exchange on 06/16/2021 at 12:26 p.m. from patient's home physical therapist. Reported home blood pressure was 144/98. Reported they are required to report elevated readings during office visits. Reports that she thinks her blood pressure is anxiety induced. Informed to continue current medications and follow-up with PCP on Thursday. documented in this encounter Plan of Treatment Not on file documented as of this encounter Visit Diagnoses Not on filedocumented in this encounter Care Teams Lathe Machinist Relationship Specialty Start Date End Date Ryann Galdamez PA PCP - General Fire Patrol 04/02/21 01/22/22 documented as of this encounter
--- OUTSIDE RECORDS SUMMARY | 2024-03-13 01:11 | XMS_ITS | Encounter Summary ---
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 Gender Identity Not on file Sexual Orientation Not on file documented as of this encounter Ordered Prescriptions Prescription Sig Dispense Quantity Refills Last Filled Start Date End Date dilTIAZem CD/XR/XT (Cardizem CD) 120 mg 24 hr capsule Take 1 capsule (120 mg total) by mouth daily 30 capsule 11 07/09/2021 2 documented in this encounter Miscellaneous Notes * Addendum Note - Francisca Haile RN - 07/09/2021 10:51 AM CDTAddended by: FRANCISCA HAILE on: 07/09/2021 10:51 AM Modules accepted: Orders * Telephone Encounter - Francisca Haile RN - 07/09/2021 10:46 AM CDT Pt calling back upset with climbing BP's and HR. SBP's upper 160-170's/ DBP 100-120's. HR 85-100 (mostly upper 90's) States she feels ok, but is really concerned-so called to discussed adding Dilt CD 120 that EMG hadmentioned to her at her [facility] clinic apt . Ordered this and she will start this today. Pt will monitor her BP/HR 2x daily and CB in 2 weeks w/these trends for f/u. Warned her will take about that long to really see affects of this medication. She agrees w/ this plan but said if her BP keeps climbing, she will call us w/ this update- because it will really stress her out. * Telephone Encounter - Alysa Newton, ARMANI - 07/04/2021 11:00 AM CDT Spoke to patient and this am 3rd dose of Spironolactone, BP down to 141/90 on recheck. At IOV was 168/114. Maxed on Coreg and Losartan. Encouraged she give some more time, call with update again on 07/09. Continue to monitor but not take more than a couple times a day. Verbalized understanding. * Telephone Encounter - Maryann Faye - 07/04/2021 8:56 AM CDT Patient calls stating she is a new patient of Dr Ruiz Seen for first visit on Thursday. Was started on Spironolactone 25 daily. BP today = 152/121; 81. She was told by her previous cannoneer to go to ED if her BP was >120> She is asking if she should wait to see what the new medication willdo? Or go to the ED as previously instructed. PLS call her back EDIS documented in this encounter Plan of Treatment Not on file documented as of this encounter Visit Diagnoses Not on filedocumented in this encounter Care Teams Clerical Administrative Assistant Relationship Specialty Start Date End Date Ryann Galdamez PA PCP - General General Clerk 04/02/21 01/22/22 documented as of this encounter
--- OUTSIDE RECORDS SUMMARY | 2024-03-13 01:11 | XMS_ITS | Encounter Summary ---
Author Organization [facility] Address [address] [address] Care Team Providers Care Predatory Animal Trapper Name Role Phone Ryann Galdamez Primary Care Provider +1- [phone] Reason for Referral * Diagnostic Imaging (Routine) - Closed Specialty Diagnoses / Procedures Referred By Indra muñoz Referred To Contact Diagnoses Closed fracture of distal end of left fibula Procedures XR Ankle Left 3 or More Views Kvng Nash DO [address] [facility] [place] [address] Phone: tel: fax: [address] [address] Referral ID Status Reason Start Date Expiration Date Visits Re quested Visits Authorized [id number] Closed 07/15/2021 08/14/2022 1 1 Reason for Visit * Reason Comments Pain Follow-up * Consultation (Routine) - Closed Specialty Diagnoses / Procedures Referred By Indra muñoz Referred To Contact Orthopedic Surgery Diagnoses Traumatic closed nondisplaced fracture of distal fibula, left, with routine healing, subsequent encounter Kvng Nash DO [address] [facility] [place] [address] Phone: tel: fax: [facility] Orthopedics and Sports Medicine [address] [facility] [address] [place] [address] Phone: tel: fax: Referral ID Status Reason Start Date Expiration Date V isits Requested Visits Authorized [id number] Closed Specialty Services Required 06/11/2021 06/10/2022 12 12 Encounter Details Date Type Department Care Team (Late st Contact Info) Description 07/15/2021 11:30 AM CDT Office Visit [facility] Orthopedics and Sports Medicine [address] [facility] [address] [place] [address] Kvng Nash DO [address] [place] [address] [address] [place] [address] Closed fracture of distal end of left [...] on file 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 FOLLOW UP PATIENT VISIT Subjective CHIEF COMPLAINT She had concerns including Pain and Follow-up of the Left Ankle. HISTORY OF PRESENT ILLINESS Patient returns for re-evaluation of her left ankle. She is 2 months out of left distal fibula fracture. She has been ambulating in the Cam boot. Denies any acute issues. She denies any pain Objective PHYSICAL EXAM Height 157.5 cm (5' 2 ) Weight 70.3 kg (155 lb) Body Mass Index 28.35 kg/m?? Exam of the left ankle shows no deformity. Minimal tenderness over her distal fibula. She denies any pain with stressing of the mortise or ankle motion. Calf soft nontender. REVIEW OF X-RAYS/STUDIES/LABS X-rays left ankle show a healing distal fibula fracture. No signs of failure or complication Diagnoses and all orders for this visit: Closed fracture of distal end of left fibula (Primary) - XR Ankle Left 3 or More Views; Future Plan: Continue weight-bearing as tolerated. She will transition out of the Cam boot the next 2-3 weeks. Follow up with me in 3 months for repeat x-rays Kvng Nash DO documented in this encounter [...] 2:57 PM - Electronically signed by ??Ravi CRAIN D: ??07/16/2021 2:57 PM T: Report ID: [id number] Reading Location: ??[id number] Procedure Note Ravi Lombardo MD - 07/16/2021 [...] signed by Ravi CRAIN T: Report ID: [id number] Reading Location: [id number] Kvng Nash DO IMG XR PROCEDURES Final Result documented in this encounter Visit Diagnoses Diagnosis Closed fracture of distal end of left fibula- Primary Closed fracture of distal end of left fibula documented in this encounter Care Teams Predatory Animal Trapper Relationship Specialty Start Date End Date Ryann Galdamez PA PCP - General Electric Blanket Wirer 04/02/21 01/22/22 documented as of this encounter
--- OUTSIDE RECORDS SUMMARY | 2024-03-13 01:11 | XMS_ITS | Encounter Summary ---
Author Organization [facility] Healthcare Address [address] [place] [address] Care Team Providers Care Real Property Appraiser Name Role Phone Ryann Galdamez Primary Care Provider +1- [phone] Encounter Details Date Type Department Care Team (Late st Contact Info) Description 06/05/[address] [facility] [address] [place] [address] Racquel Stevenson RN Social History Tobacco Use Types Packs/Day Years Used Date Smoking Tobacco: Never Smokeless Tobacco: Never Alcohol Use Standard Drinks/Week Comments Yes 0 (1 standard drink = 0.6 oz pur e alcohol) AUDIT-C Answer Date Recorded Q1: How often do you have a drink containing alc ohol? Never 06/03/2021 Average Number of Drinks Not on file 022 Q3: How often do you have si x or more drinks on one occasion? 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
--- OUTSIDE RECORDS SUMMARY | 2024-03-13 01:11 | XMS_ITS | Encounter Summary ---
Author Organization [facility] Address [address] [facility] [address] [place] [address] Care Team Providers Care Therapeutic Mentor Name Role Phone Ryann Galdamez Primary Care Provider +1- [phone] Reason for Visit * Reason Onset Date Comments UTI symptoms - needing a refill of antibiotic Encounter Details Date Type Department Care Team (Late st Contact Info) Description 05/31/2021 Telephone [facility] Family Medicine [address] [facility] [address] [facility] [address] [place] [address] Ryann Galdamez PA [facility] [place] [place] [address] UTI symptoms - needing a refill of antibiotic Social History Tobacco Use Types Packs/Day Years [...] on file 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
--- OUTSIDE RECORDS SUMMARY | 2024-03-13 01:11 | XMS_ITS | Encounter Summary ---
Author Organization [facility] Medical [facility] Address [address] [facility] [address] [place] [address] Care Team Providers Care Junior Automation Engineer Name Role Phone Ryann Galdamez Primary Care Provider +1- [phone] Reason for Referral * Diagnostic Imaging (Routine) - Closed Specialty Diagnoses / Procedures Referred By Indra muñoz Referred To Contact Procedures XR Abdomen AP 1V [facility] [address] [place] [address] Phone: tel: fax: Referral ID Status Reason Start Date Expiration Date Visits Re quested Visits Authorized [id number] Closed 06/10/2021 07/10/2022 1 1 Encounter Details Date Type Department Care Team (Late st Contact Info) Description 06/10/2021 Orders Only [facility] [address] [place] [address] Cameron Pike MD [facility] [place] [address] Social History Tobacco Use Types Packs/Day Years [...] on file 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 Gender Identity Not on file Sexual Orientation Not on file documented as of this encounter Plan of Treatment Not on file documented as of this encounter Procedures Procedure Name Priority Date/Time Associated Diagnosis Comments XR ABDOMEN AP 1V Schedule Routine, Re ad Routine (OP Routine) 06/06/2021 documented in this encounter Results * XR Abdomen AP 1V (06/06/2021) Anatomical Region Laterality Modality Body N/A Radiographic Emilia ging Historical Provider MD HERNANDEZ XR PROCEDURES Final R esult documented in this encounter Visit Diagnoses Not on filedocumented in this encounter Care Teams Junior Automation Engineer Relationship Specialty Start Date End Date Ryann Galdamez PA PCP - General Traffic Law Attorney 04/02/21 01/22/22 documented as of this encounter
--- OUTSIDE RECORDS SUMMARY | 2024-03-13 01:11 | XMS_ITS | Encounter Summary ---
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
--- OUTSIDE RECORDS SUMMARY | 2024-03-13 01:11 | XMS_ITS | Encounter Summary ---
Author Organization [facility] Address [address] [place] [address] Care Team Providers Care Ceramic Tiler Name Role Phone Ryann Galdamez Primary Care Provider [phone] Reason for Visit * Reason Comments Follow-up Encounter Details Date Type Department Care Team (Late st Contact Info) Description 06/17/2021 10:30 AM CDT Office Visit [facility] Family Medicine [address] [place] [address] Ryann Galdamez PA [facility] [place], [place] [id number] Iron deficiency anemia, unspecified iron deficiency anemia type (Primary Dx); Episode of recurrent major depressive disorder, unspecified depression episode severity (HCC); Hypokalemia; BMI 30.0-30.9,adult; Essential hypertension; Anxiety; Atrial fibrillation with RVR (CMS/HCC) (HCC) Social History Tobacco Use Types [...] on file Legal Sex Female 4:20 AM [employer] Gender Identity Not on file Sexual Orientation Not on file documented as of this encounter Last Filed Vital Signs Vital Sign Reading Time Taken Comments Blood Pressure 112/70 06/17/2021 10:38 AM CDT Pulse 95 06/17/2021 10:38 AM CDT Temperature 36.6 ??C (97.8 ??F) 06/17/2021 10:38 AM C DT Respiratory Rate - - Oxygen Saturation 99% 06/17/2021 10:38 AM CDT Inhaled Oxygen Concentration - - Weight - - Height - - Body Mass Index - - documented in this encounter Ordered Prescriptions Prescription Sig Dispense Quantity Refills Last Filled Start Date End Date busPIRone (BUSPAR) 5 mg tabletIndications: Generalized Anxiety Disorder Take 1 tablet (5 mg total) by mouth 3 (three) times a day 90 tablet 1 06/17/2021 2 losartan (COZAAR) 25 mg tablet Take 4 tablets (100 mg total) by mouth daily 90 tablet 3 06/17/2021 2 documented in this encounter Progress Notes * Ryann Galdamez PA - 06/17/2021 10:30 AM CDT Images from the original note were not included. Chief Complaint Follow-up HPI Here for f/u on htn, anxiety, depression, hypokalemia, afib. Visiting nurses called the exchange yesterday - was 144/98, p 104. Later it was 145/103 and p92. Later on 152/69 and p89. Was told not to do exercises but reports that she chose to anyway because she was feeling ok. She hasn't had any chest pain or feeling of heart fluttering. Sugar 121 this morning, didn't take glipizide because it's running normally. Is transitioning between cardiologists, as hers is leaving [facility]. She can't get in to see Dr. Mendes until October, wondering about a sooner appt. Pending appt with hematology regarding BAKARI Continues with anxiety and depression, sometimes using alprazolam and wondering about an alternative. Has been trying to avoid using the zolpidem. Presents with brother today. Allergies as of 06/17/2021 - Reviewed 06/17/2021 Allergen Reaction Noted ??? Amlodipine Shortness of breath 07/21/2019 ??? Prasanth inhibitors Cough ??? Citalopram ??? Lisinopril ??? Lisinopril-hydrochlorothiazide Dizziness and Nausea only 05/13/2021 Outpatient Encounter Medications as of 06/17/2021 Medication Sig Dispense Refill ??? acetaminophen (TYLENOL) [...] DAY WITH FOOD 180 tablet 3 ??? Eliquis 5 mg tablet TAKE 1 TABLET BY MOUTH TWICE A DAY 180 tablet 3 ??? ferrous sulfate 325 mg (65 mg of elemental iron) tablet Take 1 tablet (325 mg total) by mouth 2(two) times a day 60 tablet 1 ??? furosemide (LASIX) 40 mg tablet Take 1 tablet (40 mg total) by mouth daily 30 tablet 11 ??? glipiZIDE (GLUCOTROL) 10 mg tablet Take 10 mg by mouth 2 (two) times a day before breakfast andlunch ??? levothyroxine (SYNTHROID) 50 mcg tablet Take 1 tablet (50 mcg total) by mouth daily 30 tablet 11 ??? metFORMIN (GLUCOPHAGE) 500 mg tablet TAKE 1 TABLET BY MOUTH TWICE A DAY WITH MEALS 180 tablet 1 ??? rosuvastatin (CRESTOR) 20 mg tablet TAKE 1 TABLET BY MOUTH EVERY DAY 90 tablet 3 ??? tamsulosin (FLOMAX) 0.4 mg extended release capsule Take 1 capsule (0.4 mg total) by mouth daily with dinner 30 capsule 0 ??? [DISCONTINUED] losartan (COZAAR) 25 mg tablet Take 2 tablets (50 mg total) by mouth daily 90 tablet 3 ??? [DISCONTINUED] multivitamin,ul-djri-Ir-FA-min 27-0.4 mg tablet Take 1 tablet by mouth daily ??? busPIRone (BUSPAR) 5 mg tablet Take 1 tablet (5 mg total) by mouth 3 (three) times a day 90 tablet 1 ??? cephalexin (KEFLEX) 500 mg capsule Take 500 mg by mouth 3 (three) times a day ??? losartan (COZAAR) 25 mg tablet Take 4 tablets (100 mg total) by mouth daily 90 tablet 3 ??? potassium chloride ER (potassium chloride ER) 20 mEq CR tablet Take 20 mEq by mouth daily ??? [DISCONTINUED] FLUoxetine (PROzac) 20 mg capsule Take 2 capsules (40 mg total) by mouth daily (Patient not taking: Reported on 06/17/2021) 60 capsule 1 No facility-administered encounter medications on file as of 06/17/2021. Review of Systems Constitutional: Negative for fatigue, [...] dizziness. Hematological: Does not bruise/bleed easily. Psychiatric/Behavioral: Negative for confusion. The patient is nervous/anxious. Vitals: 06/17/21 1038 BP: 112/70 BP Location: Left arm Patient Position: Sitting Pulse: 95 Temp: 36.6 ??C (97.8 ??F) SpO2: 99% Physical Exam Vitals and nursing note reviewed. Constitutional: General: She is not in acute distress. Appearance: Normal appearance. She is not ill-appearing, toxic-appearing or diaphoretic. HENT: Head: Normocephalic and atraumatic. Cardiovascular: Heart sounds: No friction rub. No gallop. Comments: Regularly irregular Pulmonary: Effort: Pulmonary effort is normal. No respiratory distress. Breath sounds: Normal breath sounds. No stridor. No wheezing, rhonchi or rales. Chest: Chest wall: No tenderness. Musculoskeletal: Comments: CAM boot LLE, ambulating with wheeled walker Skin: General: Skin is warm. Neurological: General: No focal deficit present. Mental Status: She is alert and oriented to person, place, and time. Psychiatric: Mood and Affect: Mood normal. Behavior: Behavior normal. Thought Content: Thought content normal. Assessment/Plan Diagnoses and all orders for this visit: Iron deficiency anemia, unspecified iron deficiency anemia type (D50.9) (Primary) Assessment & Plan: Repeat cbc this week Has appt pending with hematology that she will keep Orders: - CBC with auto differential; Future - Vitamin B12; Future Episode of recurrent major depressive disorder, unspecified depression episode severity (HCC) (F33.9) Assessment & Plan: Continue prozac same dose at this time Hypokalemia (E87.6) Assessment & Plan: Resume kcl 20meq one tab daily Repeat bmp this week Orders: - Basic metabolic panel; Future BMI 30.0-30.9,adult (Z68.30) Essential hypertension (I10) Assessment & Plan: Increase losartan to 100mg daily Provider contacted Dr. Mendes's office - appt made for 07/02/21 at 140pm. She is going to reschedule hematology as it is scheduled around the same time. She will monitor for any chest pain, pulse >120 - will report to ER if experiencing. Discussed goal 120-130/80s on bp. Anxiety (F41.9) - busPIRone (BUSPAR) 5 mg tablet; Take 1 tablet (5 mg total) by mouth 3 (three) times a day Atrial fibrillation with RVR (CMS/HCC) (HCC) (I48.91) Assessment & Plan: Increase losartan to 100mg daily Provider contacted Dr. Mendes's office - appt made for 07/02/21 at 140pm. She is going to reschedule hematology as it is scheduled around the same time. She will monitor for any chest pain, pulse >120 - will report to ER if experiencing. Discussed goal 120-130/80s on bp. Other orders - losartan (COZAAR) 25 mg tablet; Take 4 tablets (100 mg total) by mouth daily Orders Placed This Encounter ??? CBC with auto differential Standing Status: Future Number of Occurrences: 1 Standing Expiration Date: 06/17/2022 ??? Basic metabolic panel Standing Status: Future Number of Occurrences: 1 Standing Expiration Date: 06/17/2022 ??? Vitamin B12 Standing Status: Future Number of Occurrences: 1 Standing Expiration Date: 06/17/2022 ??? losartan (COZAAR) 25 mg tablet Sig: Take 4 tablets (100 mg total) by mouth daily Dispense: 90 tablet Refill: 3 ??? busPIRone (BUSPAR) 5 mg tablet Sig: Take 1 tablet (5 mg total) by mouth 3 (three) times a day Dispense: 90 tablet Refill: 1 RACHID Jenkins Cosigned by Cuba Larsen MD at 06/17/2021 1:39 PM CDT documented in this encounter Miscellaneous Notes * Assessment & Plan Note - Ryann Galdamez PA - 06/17/2021 1:10 PM CDT Associated Problem(s): Atrial fibrillation with RVR (CMS/HCC) (HCC) (Deleted) Increase losartan to 100mg daily Provider contacted Dr. Mendes's office - appt made for 07/02/21 at 140pm. She is going to reschedule hematology as it is scheduled around the same time. She will monitor for any chest pain, pulse >120 - will report to ER if experiencing. Discussed goal 120-130/80s on bp. * Assessment & Plan Note - Ryann Galdamez PA - 06/17/2021 1:09 PM CDT Associated Problem(s): Iron deficiency anemia (Resolved 03/03/2023) Repeat cbc this week Has appt pending with hematology that she will keep * Assessment & Plan Note - Ryann Galdamze PA - 06/17/2021 1:09 PM CDT Associated Problem(s): Hypokalemia (Resolved 02/13/2022) Resume kcl 20meq one tab daily Repeat bmp this week * Assessment & Plan Note - Ryann Galdamez PA - 06/17/2021 1:08 PM CDT Associated Problem(s): Moderate episode of recurrent major depressive disorder (HCC) Continue prozac same dose at this time * Assessment & Plan Note - Ryann Galdamez PA - 06/17/2021 11:18 AM CDT Associated Problem(s): Essential hypertension Increase losartan to 100mg daily Provider contacted Dr. Mendes's office - appt made for 07/02/21 at 140pm. She is going to reschedule hematology as it is scheduled around the same time. She will monitor for any chest pain, pulse >120 - will report to ER if experiencing. Discussed goal 120-130/80s on bp. documented in this encounter Plan of Treatment Not on file documented as of this encounter Procedures Procedure Name Priority Date/Time Associated Diagnosis Comments COPY RECEIVED FROM Routine 07/15/2021 1: 26 PM CDT COPY(IES) SENT TO: Routine 07/15/2021 1: 26 PM CDT CBC WITH AUTO DIFFERENTIAL Routine 07/15/2021 1:26 PM CDT VITAMIN B12 Routine 07/15/2021 1:26 PM CDT Iron deficiency anemia, unspecified iron deficiency anemia type BASIC METABOLIC PANEL Routine 07/15/2021 1:26 PM CDT CBC WITH AUTO DIFFERENTIAL Routine 06/20/2021 2:12 PM CDT Iron deficiency anemia, unspecified iron deficiency anemia type BASIC METABOLIC PANEL Routine 06/20/2021 2:12 PM CDT Hypokalemia documented in this encounter Results * Copy received from (07/15/2021 1:26 PM CDT) Copy Rec'd from: [facility] Comment: ?[facility] ?PRACTICE ?[address] ?[place] [address] 07/15/2021 1:26 PM CDT 07/15/2021 1:31 PM CDT Ryann RASHID LAB BLOOD ORDERABLES Final Result [facility] * (ABNORMAL) CBC with auto differential (07/15/2021 1:26 PM CDT) WBC 7.0 3.8 - 10.8 Thousand/u L [facility] RBC, POC 4.28 3.80 - 5.10 Million/uL [facility] Hgb 12.2 11.7 - 15.5 g/dL [facility] Hct 38.1 35.0 - 45.0 % [facility] MCV 89.0 80.0 - 100.0 fL [facility] MCH 28.5 27.0 - 33.0 pg [facility] MCHC 32.0 32.0 - 36.0 g/dL [facility] Rdw 18.5(H) 11.0 - 15.0 % [facility] Platelets 253 140 - 400 Thousand/u L [facility] MPV 10.5 7.5 - 12.5 fL [facility] Neutrophils, abs 4,781 1,500 - 7,800 cells/uL [facility] Lymphocytes, abs 1,568 850 - 3,900 cells/uL [facility] Monocyte abs 553 200 - 950 cells/uL [facility] Eosinophils, abs 70 15 - 500 cells/uL [facility] Basophils, abs 28 0 - 200 cells/uL [facility] Neutrophils 68.3 % [facility] Lymphocyte pct 22.4 % [facility] Monocytes 7.9 % [facility] Eosinophils 1.0 % [facility] Basophils 0.4 % [facility] 07/15/2021 1:26 PM CDT 07/15/2021 1:31 PM CDT Ryann RASHID LAB BLOOD ORDERABLES Final Result [facility] [address] [place] [address] * (ABNORMAL) Basic metabolic panel (07/15/2021 1:26 PM CDT) Pathologist [facility] Glucose 82 65 - 99 mg/dL [facility] Comment: ? Fasting reference interval BUN 26(H) 7 - 25 mg/dL [facility] Creatinine 0.55(L) 0.60 - 0.88 mg/dL [facility] Comment: For patients >49 years of age, the reference limit for Creatinine is approximately 13% higher for people identified as -[place]ian. eGFR NON-AFR. SINGAPOREAN 89 > OR = 60 mL/min/1. 73m2 [facility] EGFR 103 > OR = 60 mL/min/1. 73m2 [facility] BUN/creat ratio 47(H) 6 - 22 (calc) [facility] Sodium 139 135 - 146 mmol/L [facility] Potassium, pl 4.1 3.5 - 5.3 mmol/L [facility] Chloride 105 98 - 110 mmol/L [facility] CO2 26 20 - 32 mmol/L [facility] Calcium 9.9 8.6 - 10.4 mg/dL [facility] 07/15/2021 1:26 PM CDT 07/15/2021 1:31 PM CDT Ryann RASHID LAB BLOOD ORDERABLES Final Result [facility] [address] [place] [address] * COPY(IES) SENT TO: (07/15/2021 1:26 PM CDT) COPY(IES) SENT TO: [facility] Comment: ?[facility] ?[facility] [phone] ?[address] ?[place] [address] 07/15/2021 1:26 PM CDT 07/15/2021 1:31 PM CDT Ryann RASHID LAB BLOOD ORDERABLES Final Result [facility] * Vitamin B12 (07/15/2021 1:26 PM CDT) Vitamin B12 497 200 - 1,100 pg/mL [facility] Comment: ? Your request to have a duplicate copy faxed has been acknowledged. ?Queued to: ??[id number] Blood specimen (specimen) 07/15/2021 1:26 PM CDT 07/15/2021 1:31 PM CDT Ryann RASHID LAB BLOOD ORDERABLES Final Result [facility] [address] [phone] * (ABNORMAL) Basic metabolic panel (06/20/2021 2:12 PM CDT) Pathologist [facility] Glucose 158(H) 65 - 139 mg/dL [facility] [place] Comment: ? Non-fasting reference interval BUN 20 7 - 25 mg/dL [facility] [place] Creatinine 0.61 0.60 - 0.88 mg/dL [facility] [place] Comment: For patients >49 years of age, the reference limit for Creatinine is approximately 13% higher for people identified as -[place]ian. eGFR NON-AFR. [place]INGAPOREAN 86 > OR = 60 mL/min/1 .73m2 [facility] [place] EGFR 99 > OR = 60 mL/min/1 .73m2 [facility] [place] BUN/creat ratio NOT APPLICABLE 6 - 22 (calc) [facility] [place] Sodium 141 135 - 146 mmol/L [facility] [place] Potassium, pl 3.7 3.5 - 5.3 mmol/L [facility] [place] Chloride 106 98 - 110 mmol/L [facility] [place] CO2 28 20 - 32 mmol/L [facility] [place] Calcium 9.5 8.6 - 10.4 mg/dL [facility] [place] Blood specimen (specimen) 06/20/2021 2:12 PM CDT 06/20/2021 2:15 PM CDT Narrative [facility] - 06/21/2021 7:47 AM CDT FASTING:NO FASTING: NO Ryann RASHID LAB BLOOD ORDERABLES Final Result Performing Organization Address City/[facility]/ZIP Co de Phone Number JULIO CÉSAR [employer] [address] [address] [phone] * (ABNORMAL) CBC with auto differential (06/20/2021 2:12 PM CDT) [facility] [address] WBC 5.0 3.8 - 10.8 Thousand/u L [facility] RBC, POC 3.72(L) 3.80 - 5.10 Million/uL [facility] Hgb 9.8(L) 11.7 - 15.5 g/dL [facility] Hct 31.7(L) 35.0 - 45.0 % [facility] MCV 85.2 80.0 - 100.0 fL [facility] MCH 26.3(L) 27.0 - 33.0 pg [facility] MCHC 30.9(L) 32.0 - 36.0 g/dL [facility] Rdw 17.2(H) 11.0 - 15.0 % [facility] Platelets 261 140 - 400 Thousand/u L [facility] MPV 10.1 7.5 - 12.5 fL [facility] Neutrophils, abs 3,365 1,500 - 7,800 cells/uL [facility] Lymphocytes, abs 1,200 850 - 3,900 cells/uL [facility] Monocyte abs 385 200 - 950 cells/uL [facility] Eosinophils, abs 30 15 - 500 cells/uL [facility] Basophils, abs 20 0 - 200 cells/uL [facility] Neutrophils 67.3 % [facility] Lymphocyte pct 24.0 % [facility] Monocytes 7.7 % [facility] Eosinophils 0.6 % [facility] Basophils 0.4 % [facility] Blood specimen (specimen) 06/20/2021 2:12 PM CDT 06/20/2021 2:15 PM CDT Narrative [facility] - 06/21/2021 7:47 AM CDT FASTING:NO FASTING: NO Ryann RASHID LAB BLOOD ORDERABLES Final Result [facility] [address] [address] [phone] documented in this encounter Visit Diagnoses Diagnosis Iron deficiency anemia, unspecified iron deficiency anemia type- Primary Episode of recurrent major depressive disorder, unspecified depression episode severity (HCC) Hypokalemia Hypopotassemia BMI 30.0-30.9,adult Essential hypertension Unspecified essential hypertension Anxiety Anxiety state, unspecified Atrial fibrillation with RVR (CMS/HCC) (HCC) documented in this encounter Discontinued Medications Medication Sig Discontinue Reason Start Date End Da te multivitamin,tx-iron-Ca- FA-min 27-0.4 mg tablet Take 1 tablet by mouth daily Therapy completed 06/17/2021 FLUoxetine (PROzac) 20 mg capsuleIndications:Episo de of recurrent major depressive disorder, unspecified depression episode severity (HCC) Take 2 capsules (40 mg total) by mouth daily Therapy completed 06/12/2021 06/17/2021 losartan (COZAAR) 25 mg tablet Take 2 tablets (50 mg total) by mouth daily 06/13/2021 06/17/2021 documented as of this encounter Historical Medications * This list may reflect changes made after this encounter. cephalexin (KEFLEX) 500 mg capsule Take 500 mg by mouth 3 (three) times a day 05/21/2021 2 potassium chloride ER (KLOR-CON) 20 mEq CR tablet Take 20 mEq by mouth daily 2 glipiZIDE (GLUCOTROL) 10 mg tabletIndication s:type 2 diabetes mellitus Take 10 mg by mouth 2 (two) times a day before breakfast and lunch 2 added in this encounter Care Teams Ceramic Tiler Relationship Specialty Start Date End Date Ryann Galdamez PA PCP - General Polishing Machine Operator 04/02/21 01/22/22 documented as of this encounter
--- OUTSIDE RECORDS SUMMARY | 2024-03-13 01:11 | XMS_ITS | Encounter Summary ---
Author Organization [facility] Healthcare Address [address] [place] [address] Care Team Providers Care Guidance Secretary Name Role Phone Ryann Galdamez Primary Care Provider [phone]- [phone] Reason for Referral * Diagnostic Imaging (Routine) - Closed Specialty Diagnoses / Procedures Referred By Indra muñoz Referred To Contact Diagnoses Closed fracture of distal end of left fibula Procedures XR Ankle Left 3 or More Views Kvng Nash DO [address] [place] [address] Phone: tel: fax: [address] [address] Referral ID Status Reason Start Date Expiration Date Visits Re quested Visits Authorized [id number] Closed 06/18/2021 07/18/2022 1 1 Reason for Visit * Diagnostic Imaging (Routine) - Closed Specialty Diagnoses / Procedures Referred By Indra muñoz Referred To Contact Diagnoses Closed fracture of distal end of left fibula Procedures XR Ankle Left 3 or More Views Kvng Nash DO [address] [place] [address] Phone: tel: fax: [address] [address] Referral ID Status Reason Start Date Expiration Date Visits Re quested Visits Authorized [id number] Closed 06/18/2021 07/18/2022 1 1 Encounter Details Date Type Department Care Team (Latest Contact Info) Description 06/20/2021 10:58 AM CDT - 06/20/2021 11:59 PM CDT Hospital Encounter [facility] 1 DIAG IMG [address] [place] [address] Closed fracture of distal end of left [...] on file 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 Gender Identity Not on file Sexual [...] tablet 06/03/2021 2 busPIRone (BUSPAR) 5 mg tabletIndication s:Generalized Anxiety Disorder Take 1 tablet (5 mg total) by mouth 3 (three) times a day 90 tablet 1 06/17/2021 2 carvediloL (COREG) 25 mg tablet TAKE 1 TABLET BY MOUTH TWICE A DAY WITH FOOD 180 tablet 3 10/01/2020 2 cephalexin (KEFLEX) 500 mg capsule Take 500 mg by mouth 3 (three) times a day 05/21/2021 2 Eliquis 5 mg tablet TAKE 1 TABLET BY MOUTH TWICE A DAY 180 tablet 3 09/19/2020 2 ferrous sulfate 325 mg (65 mg of elemental iron) tabletIndication s:Iron Deficiency Anemia Take 1 tablet (325 mg total) by mouth 2 (two) times a day 60 tablet 1 06/03/2021 2 furosemide (LASIX) 40 mg tablet Take 1 tablet (40 mg total) by mouth daily 30 tablet 11 12/06/2020 2 glipiZIDE (GLUCOTROL) 10 mg tabletIndication s:type 2 diabetes mellitus Take 10 mg by mouth 2 (two) times a day before breakfast and lunch 2 levothyroxine (SYNTHROID) 50 mcg tablet Take 1 tablet (50 mcg total) by mouth daily 30 tablet 11 01/21/2021 2 losartan (COZAAR) 25 mg tablet Take 4 tablets (100 mg total) by mouth daily 90 tablet 3 06/17/2021 2 metFORMIN (GLUCOPHAGE) 500 mg tablet TAKE 1 TABLET BY MOUTH TWICE A DAY WITH MEALS 180 tablet 1 03/05/2021 2 potassium chloride ER (KLOR-CON) 20 mEq CR tablet Take 20 mEq by mouth daily 2 rosuvastatin (CRESTOR) 20 mg tablet TAKE 1 TABLET BY MOUTH EVERY DAY 90 tablet 3 09/11/2020 2 tamsulosin (FLOMAX) 0.4 mg extended release capsule Take 1 capsule (0.4 mg total) by mouth daily with dinner 30 capsule 05/29/2021 2 documented as of this encounter Discharge Disposition Disposition Code Departure Means Destination Discharge to home or self care documented in this encounter Plan of Treatment Not on file documented as of this encounter Procedures Procedure Name Priority Date/Time Associated Diagnosis Comments XR ANKLE LEFT 3 OR MORE VIEWS Schedule Routine, Read Routine (OP Routine) 06/20/2021 11:18 AM CDT Closed fracture of distal end of left fibula documented in this encounter Results * XR Ankle Left 3 or More Views (06/20/2021 11:18 AM CDT) Anatomical Region Laterality Modality Lower Extremities, Ankle Left Compute d Radiography 06/21/2021 9:21 AM CDT Narrative 06/21/2021 9:24 AM CDT EXAM DESCRIPTION: ?XR ANKLE LEFT 3 OR MORE VIEWS REASON FOR STUDY: ?? pain ?? Left ankle fx from fall x 1 month ?? TECHNIQUE: ?? AP, lateral, and oblique ??radiographic views acquired of the left ankle. COMPARISON: ?? 05/29/2021 FINDINGS: BONES/JOINTS: ?? Unchanged mildly displaced comminuted fracture of the distal left fibula at the level of the tibial pilon. ??No new fracture or displacement. ??No widening of the medial clear space. The right ankle grossly appears normal in the limited view. ?Joint spaces are maintained. SOFT TISSUES: ?? Unremarkable. OTHER: ?? No other significant finding. IMPRESSION: ?? Unchanged mildly displaced comminuted fracture of the distal left fibula. THIS IS AN ELECTRONICALLY VERIFIED FINAL REPORT 06/21/2021 9:24 AM - Electronically signed by ??Ravi Lombardo M.D. KN: PARAS D: ??06/21/2021 9:24 AM T: ??06/21/2021 9:24 AM Report ID: [id number] Reading Location: ??[id number] Procedure Note Ravi Lombardo MD - 06/21/2021 EXAM DESCRIPTION: XR ANKLE LEFT 3 OR MORE VIEWS REASON FOR STUDY: pain Left ankle fx from fall x 1 month TECHNIQUE: AP, lateral, and oblique radiographic views acquired of theleft ankle. COMPARISON: 05/29/2021 FINDINGS: BONES/JOINTS: Unchanged mildly displaced comminuted fractureof the distal left fibula at the level of the tibial pilon. No new fractureor displacement. No widening of the medial clear space. The right ankle grossly appears normal in the limited view. Jointspaces are maintained. SOFT TISSUES: Unremarkable. OTHER: No other significant finding. IMPRESSION: Unchanged mildly displaced comminuted fracture of the distal left fibula. THIS IS AN ELECTRONICALLY VERIFIED FINAL REPORT 06/21/2021 9:24 AM - Electronically signed by Ravi Lombardo M.D. KN: PARAS Report ID: [id number] Reading Location: [place] [address] Knvg Nash DO IMG XR PROCEDURES Final Result documented in this encounter Visit Diagnoses Diagnosis Closed fracture of distal end of left fibula documented in this encounter Care Teams Guidance Secretary Relationship Specialty Start Date End Date Ryann Galdamez PA PCP - General Auto Painter 04/02/21 01/22/22 documented as of this encounter
--- OUTSIDE RECORDS SUMMARY | 2024-03-13 01:11 | XMS_ITS | Encounter Summary ---
Author Organization [facility] Address [address] [place] [address] Phone Care Team Providers Care Bowl Turner Name Role Phone Ryann Galdamez Primary Care Provider [phone]- [phone] Chris Mendes MD Unavailable [phone] Keli Orozco RN Unavailable Unavailable Alysa Newton RN Unavailable [phone] Cuba Larsen MD Primary Care Provider [phone] Keli Orozco RN Unavailable Unavailable Keli Orozco RN Unavailable Unavailable Tami Mcknight RN Unavailable Unavailab le Encounter Details Date Type Department Care Team (Late st Contact Info) Description 06/24/2021 Telephone [facility] Cardiology [address] 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 Gender Identity Not on file Sexual Orientation Not on file documented as of this encounter Plan of Treatment Not on file documented as of this encounter Visit Diagnoses Not on filedocumented in this encounter Care Teams Bowl Turner Relationship Specialty Start Date End Date Ryann Galdamez PA PCP - General Continuous Drier Helper 04/02/21 01/22/22 Cuba Larsen MD [address] [address] PCP - General Family Medicine 01/23/22 Chris Mendes MD Referring Physician Cardiology 12/23/21 Keli Orozco, faculty criminal justiceBaker Pie Cardiology 12/23/21 04/15/23 Alysa Newton, RN [address] [address] [facility] Cardiology 12/23/21 Keli Orozco, mark up designer Failure Coordinator 04/02/23 4 Keli Orozco, mark up designer Failure Coordinator Transplant 04/15/23 Tami Mcknight mark up designer Failure Coordinator Cardiology 09/14/23 documented as of this encounter
--- OUTSIDE RECORDS SUMMARY | 2024-03-13 01:11 | XMS_ITS | Encounter Summary ---
Author Organization [facility] Address [address] [address] Care Team Providers Care Tile Mechanic Helper Name Role Phone Ryann Galdamez Primary Care Provider [phone] Reason for Referral * Diagnostic Imaging (Routine) - Closed Specialty Diagnoses / Procedures Referred By Indra muñoz Referred To Contact Diagnoses Closed fracture of distal end of left fibula Procedures XR Ankle Left 3 or More Views Kvng Nash DO [address] [place] [address] Phone: tel: fax: [address] [phone] Referral ID Status Reason Start Date Expiration Date Visits Re quested Visits Authorized [id number] Closed 06/18/2021 07/18/2022 1 1 Reason for Visit * Reason Comments Fracture * Consultation (Routine) - Closed Specialty Diagnoses / Procedures Referred By Indra muñoz Referred To Contact Orthopedic Surgery Diagnoses Traumatic closed nondisplaced fracture of distal fibula, left, with routine healing, subsequent encounter Kvng Nash DO [address] [place] [address] Phone: tel: fax: [facility] Orthopedics and Sports Medicine [address] [place] [address] [place] [address] Phone: tel: fax: Referral ID Status Reason Start Date Expiration Date V isits Requested Visits Authorized [id number] Closed Specialty Services Required 06/11/2021 06/10/2022 12 12 Encounter Details Date Type Department Care Team (Late st Contact Info) Description 06/20/2021 11:00 AM CDT Office Visit [facility] Medical [facility] Orthopedics and Sports Medicine [facility] [address] [address] Kvng Nash DO 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 NEW PATIENT VISIT Subjective CHIEF COMPLAINT She had concerns including Fracture of the Left Ankle. HISTORY OF PRESENT ILLINESS Patient presents for evaluation of her left ankle. She unfortunately had a CVA 3 weeks ago. At the time she fell on to her left leg and injured her left ankle. She was seen in outside ER found to have a distal fibula fracture. She was placed in a Cam boot and sent for orthopedic follow-up. She denies any new injury since that time. No recent fevers or chills. No numbness or tingling. She has beenweight-bearing as tolerated in the boot with a walker PAST MEDICAL HISTORY She has a past medical history of Adrenal nodule (CMS/HCC) ([facility]), Anxiety, Aortic stenosis, moderate, Atrial fibrillation (CMS/HCC) (HCC), Cardiomyopathy (HCC), Diabetes mellitus (HCC), Dyslipidemia,GERD (gastroesophageal reflux disease), Heart murmur, HFrEF (heart failure with reduced ejection fraction) (CMS/HCC) ([facility]), Hyperlipidemia, Hypertension, Hypothyroidism, Insomnia, Mitral regurgitation, NSTEMI (non-ST elevated myocardial infarction) (CMS/HCC) ([facility]), Obesity, AYAD on CPAP, Patellar sleeve fracture of left knee, PONV (postoperative nausea and vomiting), Pulmonary embolism ([facility]), Sleep apnea, Stroke (CMS/HCC) ([facility]), and Zenker's diverticulum. She has no past medical history of Awareness under anesthesia, Delayed emergence from general anesthesia, Hard to intubate, Malignant hyperthermia, Motion sickness, or Pseudocholinesterase deficiency. PAST SURGICAL HISTORY She has a past surgical history that includes Hysterectomy; Cholecystectomy; Breast lumpectomy; Hand surgery (Left); Incision and drainage femur (Left, 05/22/2019); and Kidney stone surgery. MEDICATIONS She has a current medication list which includes the following prescription(s): acetaminophen, alprazolam, buspirone, calcium carbonate, carvedilol, cephalexin, eliquis, ferrous sulfate, furosemide, glipizide, levothyroxine, losartan, metformin, potassium chloride er, rosuvastatin, and tamsulosin. ALLERGIES She is allergic to amlodipine, edwin inhibitors, citalopram, lisinopril, and lisinopril-hydrochlorothiazide. SOCIAL HISTORY She reports that she has never smoked. She has never used smokeless tobacco. She reports current alcohol use. She reports that she does not use drugs. FAMILY HISTORY Family History Problem Relation Age of Onset ??? Sudden Cardiac Mother Family history of sudden cardiac - (Added by TW Conv) ??? Heart failure Mother Family history of heart failure - (Added by TW Conv) ??? Heart attack Father Family history of heart attack - (Added by TW Conv) ??? Diabetes Father Family history of diabetes mellitus - (Added by TW Conv) ??? Hypertension Father Family hx of hypertension - (Added by TW Conv) ??? Diabetes Son Family history of diabetes mellitus - (Added by TW Conv) ??? Anesthesia problems Neg Hx REVIEW OF SYSTEMS Constitutional: Negative for chills and fever. HENT: Negative for ear pain and sore throat. Eyes: Negative for pain and visual disturbance. Respiratory: Negative for shortness of breath and wheezing. Cardiovascular: Negative for chest pain and palpitations. Gastrointestinal: Negative for abdominal distention and abdominal pain. Genitourinary: Negative for dysuria and hematuria. Skin: Negative for pallor and rash. Neurological: Negative for syncope and numbness. Objective PHYSICAL EXAM There were no vitals taken for this visit. Gen: No acute distress, well developed Head: Atraumatic Eyes: EOM are normal Ears: Hearing intact to spoken word Cardiovascular: Rate is regular Pulmonary: No respiratory distress Adominal: soft Neurologic: Patient oriented to person, place and time Psychiatric: Normal mood and affect MSK: Examination of left lower leg shows no deformity. Mild swelling. She does have tenderness overfracture site. She is able to actively plantar flex dorsiflex at the ankle. No pain over the medialmalleolus or proximal fibula. Denies pain in the midfoot or forefoot. REVIEW OF X-RAYS/STUDIES/LABS X-rays of the left ankle reviewed interpreted show a minimally displaced transverse distal fibula fracture just below the syndesmosis. No change in position from initial injury films Diagnoses and all orders for this visit: Closed fracture of distal end of left fibula (Primary) - XR Ankle Left 3 or More Views; Future Traumatic closed nondisplaced fracture of distal fibula, left, with routine healing, subsequent encounter - Ambulatory referral to Orthopedic Surgery Plan: Discussed further treatment patient. I will treat her distal fibula fracture with closed treatment.She will continue her Cam boot. She may continue weight- bearing to tolerance with walker. Follow upwith me in 3-4 weeks with repeat x- rays. Anticipate transitioning into a regular shoe at that time. Kvng Nash DO documented in this encounter [...] AM T: ??06/21/2021 9:24 AM Report ID: [id number] Reading Location: ??[id number] Procedure Note Ravi Lombardo MD - 06/21/2021 [...] Ravi Lombardo M.D. KN: PARAS Report ID: [id number] Reading Location: [place] [address] Kvng Nash DO IMG XR PROCEDURES Final Result documented in this encounter Visit Diagnoses Diagnosis Closed fracture of distal end of left fibula- Primary Traumatic closed nondisplaced fracture of distal fibula, left, with routine healing, subsequent encounter Closed fracture of distal end of left fibula documented in this encounter Orders Outpatient Referral Count Last Ordered Date Fir st Ordered Date AMB REFERRAL TO ORTHOPEDIC SURGERY 1 2021 documented in this encounter Care Teams Tile Mechanic Helper Relationship Specialty Start Date End Date Ryann Galdamez PA PCP - General Associate Professor Of Kinesiology 04/02/21 01/22/22 documented as of this encounter
--- OUTSIDE RECORDS SUMMARY | 2024-03-13 01:11 | XMS_ITS | Encounter Summary ---
Author Organization [facility] Address [address] [place] [address] Phone Care Team Providers Care Order Processor Name Role Phone Ryann Galdamez Primary Care Provider [phone]- [phone] Encounter Details Date Type Department Care Team (Late st Contact Info) Description 05/29/2021 Telephone [facility] Cardiology [address] [facility] 8th [place] [address] [place] [address] Cathleen Walker MD [address] [facility] [address] [place] [address] Social History Tobacco Use Types [...] on file 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 Continue eliquis, stroke is more likely embolic * Telephone Encounter - Paulina Bright RN - 05/29/2021 1:42 PM CDT Per notes, pt had her lithotripsy procedure, then few days later, 05/25 pt presented to ED w/ stroke Spoke bhanu/ Eliana in neuro stroke unit She shares pt has resolved stroke symptoms and will be d/c home in the next few days She states BP has been running a little high, but will be d/c home w/ previous home meds She asks if necessary pt should be on ASA and Eliquis, from a neuro standpoint they were only goingto d/c on Eliquis only I told her I will check w/ you and then call her back * Telephone Encounter - Dionte Mcclure - 05/29/2021 1:31 PM CDT ABE REGuillermina CALL BACK REGARDING PT MEDS, PLS CALL documented in this encounter Plan of Treatment Not on file documented as of this encounter Visit Diagnoses Not on filedocumented in this encounter Care Teams Order Processor Relationship Specialty Start Date End Date Ryann Galdamez PA PCP - General Environmental Services Tech 04/02/21 01/22/22 documented as of this encounter
--- OUTSIDE RECORDS SUMMARY | 2024-03-13 01:11 | XMS_ITS | Encounter Summary ---
Author Organization [facility] Address [address] [facility] [address] [place] [address] Care Team Providers Care Senior Android Developer Name Role Phone Ryann Galdamez Primary Care Provider [phone]- [phone] Encounter Details Date Type Department Care Team (Late st Contact Info) Description 06/04/2021 Orders Only [facility] OBGYN (FM) at [address] [place] [address] Ryann Galdamez PA [facility] [place], [place] [id number] Closed fracture of distal end of left fibula with routine healing (Primary Dx) Social History Tobacco Use Types [...] on file 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 Gender Identity Not on file Sexual Orientation Not on file documented as of this encounter Plan of Treatment Not on file documented as of this encounter Procedures Procedure Name Priority Date/Time Associated Diagnosis Comments COLONOSCOPY Routine 05/22/2021 documented in this encounter Results * HM COLONOSCOPY (05/22/2021) Historical Provider HEALTH MAINTENANCE Final Result documented in this encounter Visit Diagnoses Diagnosis Closed fracture of distal end of left fibula with routine healing- Primary documented in this encounter Care Teams Senior Android Developer Relationship Specialty Start Date End Date Ryann Galdamez PA PCP - General Cork Insulator Helper 04/02/21 01/22/22 documented as of this encounter
--- OUTSIDE RECORDS SUMMARY | 2024-03-13 01:11 | XMS_ITS | Encounter Summary ---
Author Organization [facility] Address [address] [place] [address] Care Team Providers Care Clinical Research Nurse Name Role Phone Ryann Galdamez Primary Care Provider [phone]- [phone] Reason for Referral * Consultation (Routine) - Closed Specialty Diagnoses / Procedures Referred By Indra t Referred To Contact Hematology Diagnoses Iron deficiency anemia, unspecified iron deficiency anemia type Ryann Galdamez PA Phone: tel: fax: [facility] Hematology [address] [place] [id number] Referral ID Status Reason Start Date Expiration Date V isits Requested Visits Authorized [id number] Closed Specialty Services Required 07/01/2021 06/30/2022 12 12 Question Answer Please select the performing region: [facility] (All Locations) [[id number]] Please select the performing department: [facility]2 [id number] [[id number]] # of visits: 1 Reason for Visit * Reason Comments Follow-up Blood work from Armen carl- just put it in Encounter Details Date Type Department Care Team ([facility] st Contact Info) Description 06/03/2021 11:00 AM CDT Office Visit [facility] Family Medicine [address] [place] [address] Ryann Galdamez PA [address] [place] [address] Cerebrovascular accident (CVA) due to occlusion of cerebral artery (CMS/HCC) (HCC) (Primary Dx); Anxiety; Closed fracture of distal end of left fibula with routine healing; Iron deficiency anemia, unspecified iron deficiency anemia type; Atrial fibrillation with RVR (CMS/HCC) (HCC); Episode of recurrent major depressive disorder, unspecified depression episode severity (HCC) Social History Tobacco Use Types Packs/Day [...] on file 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 Gender Identity Not on file Sexual Orientation Not on file documented as of this encounter Last Filed Vital Signs Vital Sign Reading Time Taken Comments Blood Pressure 138/88 06/03/2021 11:10 AM CDT Pulse 70 06/03/2021 11:10 AM CDT Temperature 36.7 ??C (98 ??F) 06/03/2021 11:10 AM CDT Respiratory Rate - - Oxygen Saturation 97% 06/03/2021 11:10 AM CDT Inhaled Oxygen Concentration - - Weight - - Height - - Body Mass Index - - documented in this encounter Patient Instructions * Patient Instructions* Ryann Galdamez PA - 06/03/2021 11:00 AM CDT -check a blood count weekly (orders transmitted to [facility]) -start tylenol 325mg or 500mg every six hours as needed for leg pain -restart xanax 0.25mg twice daily as needed for anxiety -decrease prozac to 20mg daily -add ferrous sulfate 325mg twice daily for anemia. Take with a small glass of orange juice. -add losartan 25mg daily for high blood pressure -discontinue glyburide due to low blood sugars documented in this encounter Ordered Prescriptions Prescription Sig Dispense Quantity Refills Last Filled Start Date End Date losartan (COZAAR) 25 mg tablet Take 1 tablet (25 mg total) by mouth daily 90 tablet 3 06/03/2021 2 ALPRAZolam (XANAX) 0.5 mg tabletIndications: Anxiety Take 0.5 tablets (0.25 mg total) by mouth 2 (two) times a day as needed for anxiety 60 tablet 06/03/2021 2 FLUoxetine (PROzac) 20 mg capsuleIndications :Episode of recurrent major depressive disorder, unspecified depression episode severity (HCC) Take 1 capsule (20 mg total) by mouth daily 30 capsule 1 06/03/2021 2 ferrous sulfate 325 mg (65 mg of elemental iron) tabletIndications: Iron Deficiency Anemia Take 1 tablet (325 mg total) by mouth 2 (two) times a day 60 tablet 1 06/03/2021 2 documented in this encounter Progress Notes * Ryann Galdamez PA - 06/03/2021 11:00 AM CDT Images from the original note were not included. Chief Complaint Follow-up (Blood work from Vishnu- just put it in) HPI Here for f/u - saw RACHID Frost on Thursday. Presents with her brother today. In the last two weeks went in for a cystoscopy with lithotripsy. She notes that the stone didn't completely pass, so she went back to the ER at the urging of her urologist. She was given flomax and pain medication and sent home. The following day, she was having an increase in pain and felt miserable. Her granddaughter came to help her, noticed she was having facial drooping, and managed to get her to the ER. She was diagnosed with a cva and had a successful thrombectomy. She notes that she is to follow up with cardiology but notes that her gastroenterology physician is leaving the area. She also fell in the process of these events, and she sustained a left fibular fracture. She is currently in a CAM boot. She has been tired. She has been diagnosed with anemia. She has not been taking her mvi due to the kidney stone at the request of the urologist. She has not had any libia hematuria since the stone has passed. She went to [facility] yesterday due to the pain, they completed labs from Thursday. She notes that her pain medication was stopped, and she was restarted on xanax. She wonders about a longer prescription of it. Allergies as of 06/03/2021 - Reviewed 06/03/2021 Allergen Reaction Noted ??? Amlodipine Shortness of breath 07/21/2019 ??? Prasanth inhibitors Cough ??? Citalopram ??? Lisinopril ??? Lisinopril-hydrochlorothiazide Dizziness and Nausea only 05/13/2021 Outpatient Encounter Medications as of 06/03/2021 Medication Sig Dispense Refill ??? acetaminophen (TYLENOL) 500 mg tablet Take 1,000 mg by mouth as needed for pain ??? ALPRAZolam (XANAX) 0.5 mg tablet Take [...] times a day 60 tablet 1 ??? FLUoxetine (PROzac) 20 mg capsule Take 1 capsule (20 mg total) by mouth daily 30 capsule 1 ??? furosemide (LASIX) 40 mg tablet Take 1 tablet (40 mg total) by mouth daily 30 tablet 11 ??? levothyroxine (SYNTHROID) 50 mcg tablet Take 1 tablet (50 mcg total) by mouth daily 30 tablet 11 ??? losartan (COZAAR) 25 mg tablet Take 1 tablet (25 mg total) by mouth daily 90 tablet 3 ??? metFORMIN (GLUCOPHAGE) 500 mg tablet TAKE 1 TABLET BY MOUTH TWICE A DAY WITH MEALS 180 tablet 1 ??? multivitamin,xa-pija-Fr-FA-min 27-0.4 mg tablet Take 1 tablet by mouth daily ??? rosuvastatin (CRESTOR) 20 mg tablet TAKE 1 TABLET BY MOUTH EVERY DAY 90 tablet 3 ??? tamsulosin (FLOMAX) 0.4 mg extended release capsule Take 1 capsule (0.4 mg total) by mouth daily with dinner 30 capsule 0 ??? [DISCONTINUED] FLUoxetine (PROzac) 40 mg capsule Take 1 capsule (40 mg total) by mouth daily 30capsule 11 ??? [DISCONTINUED] glipiZIDE (GLUCOTROL) 10 mg tablet TAKE 1 TABLET BY MOUTH 2 TIMES A DAY BEFORE BREAKFAST AND LUNCH 180 tablet 1 ??? [DISCONTINUED] ondansetron (Zofran) 4 mg tablet Take 1 tablet (4 mg total) by mouth every 8 (eight) hours as needed for nausea or vomiting (Patient not taking: Reported on 06/03/2021) 10 tablet 0 ??? [DISCONTINUED] oxyCODONE (ROXICODONE) 5 mg immediate release tablet Take 1 tablet (5 mg total) by mouth every 4 (four) hours as needed for pain for up to 14 days 20 tablet 0 No facility-administered encounter medications on file as of 06/03/2021. Review of Systems Constitutional: Positive for fatigue. Negative for fever and unexpected weight change. HENT: Negative [...] for confusion. The patient is not nervous/anxious. Vitals: 06/03/21 1110 BP: 138/88 BP Location: Left arm Patient Position: Sitting Pulse: 70 Temp: 36.7 ??C (98 ??F) SpO2: 97% Physical Exam Vitals and nursing note reviewed. Constitutional: Appearance: Normal appearance. She is not ill-appearing, toxic-appearing or diaphoretic. HENT: Head: Normocephalic and atraumatic. Mouth/Throat: Pharynx: Oropharynx is clear. Eyes: Extraocular Movements: Extraocular movements intact. Cardiovascular: Heart sounds: Normal heart sounds. No murmur heard. No friction rub. No gallop. Comments: Regularly irregular Pulmonary: Effort: Pulmonary effort is normal. No respiratory distress. Breath sounds: Normal breath sounds. No stridor. No wheezing, rhonchi or rales. Chest: Chest wall: No tenderness. Musculoskeletal: General: Normal range of motion. Cervical back: Normal range of motion. Comments: Ambulates with walker, wearing CAM boot left foot Skin: General: Skin is warm and dry. Neurological: General: No focal deficit present. Mental Status: She is alert and oriented to person, place, and time. Psychiatric: Mood and Affect: Mood normal. Behavior: Behavior normal. Thought Content: Thought content normal. Assessment/Plan Diagnoses and all orders for this visit: Cerebrovascular accident (CVA) due to occlusion of cerebral artery ([facility]) (I63.50) (Primary) Assessment & Plan: Will refer to cv for further evaluation and treatment Anxiety (F41.9) Assessment & Plan: Resume xanax as she has discontinued narcotic pain meds Orders: - ALPRAZolam (XANAX) 0.5 mg tablet; Take 0.5 tablets (0.25 mg total) by mouth 2 (two) times a day as needed for anxiety Closed fracture of distal end of left fibula with routine healing (S82.434D) Assessment & Plan: She has pending referral for ortho Declines wc at this time She will continue with CAM boot Iron deficiency anemia, unspecified iron deficiency anemia type (D50.9) Assessment & Plan: We reviewed labs from hospital stay, will start on ferrous sulfate. Will refer to hematology for further evaluation and treatment. Orders: - Ambulatory referral to Hematology; Future - ferrous sulfate 325 mg (65 mg of elemental iron) tablet; Take 1 tablet (325 mg total) by mouth 2 (two) times a day - CBC with auto differential; Standing Atrial fibrillation with RVR (CMS/HCC) (HCC) (I48.91) Assessment & Plan: restart losartan low dose. Advised goal bp 120-130/80 - she will call over coming week with bp and pulse Will refer to cv for further evaluation and treatment Episode of recurrent major depressive disorder, unspecified depression episode severity (HCC) (F33.9) Assessment & Plan: Continue with prozac the same at this time Orders: - FLUoxetine (PROzac) 20 mg capsule; Take 1 capsule (20 mg total) by mouth daily Other orders - losartan (COZAAR) 25 mg tablet; Take 1 tablet (25 mg total) by mouth daily Orders Placed This Encounter ??? CBC with auto differential Standing Status: Standing Number of Occurrences: 12 Standing Expiration Date: 06/03/2022 ??? Ambulatory referral to Hematology Standing Status: Future Standing Expiration Date: 06/03/2022 Referral Priority: Routine Referral Type: Consultation Referral Reason: Specialty Services Required Referral Location: [facility] (All Locations) Requested Specialty: Hematology Number of Visits Requested: 1 ??? ferrous sulfate 325 mg (65 mg of elemental iron) tablet Sig: Take 1 tablet (325 mg total) by mouth 2 (two) times a day Dispense: 60 tablet Refill: 1 ??? FLUoxetine (PROzac) 20 mg capsule Sig: Take 1 capsule (20 mg total) by mouth daily Dispense: 30 capsule Refill: 1 ??? ALPRAZolam (XANAX) 0.5 mg tablet Sig: Take 0.5 tablets (0.25 mg total) by mouth 2 (two) times a day as needed for anxiety Dispense: 60 tablet Refill: 0 ??? losartan (COZAAR) 25 mg tablet Sig: Take 1 tablet (25 mg total) by mouth daily Dispense: 90 tablet Refill: 3 RACHID Jenkins Cosigned by Cuba Larsen MD at 06/03/2021 9:52 PM CDT documented in this encounter Miscellaneous Notes * Assessment & Plan Note - Ryann Galdamez PA - 06/03/2021 9:18 PM CDT Associated Problem(s): Iron deficiency anemia (Resolved 03/03/2023) We reviewed labs from hospital stay, will start on ferrous sulfate. Will refer to hematology for further evaluation and treatment. * Assessment & Plan Note - Ryann Galdamez PA - 06/03/2021 9:17 PM CDT Associated Problem(s): Moderate episode of recurrent major depressive disorder (HCC) Continue with prozac the same at this time * Assessment & Plan Note - Ryann Galdamez PA - 06/03/2021 9:17 PM CDT Associated Problem(s): Closed fracture of distal end of left fibula with routine healing (Resolved 10/09/2022) She has pending referral for ortho Declines wc at this time She will continue with CAM boot * Assessment & Plan Note - Ryann Galdamez PA - 06/03/2021 9:16 PM CDT Associated Problem(s): Cerebrovascular accident (CVA) due to occlusion of cerebral artery (HCC) (Deleted) Will refer to cv for further evaluation and treatment * Assessment & Plan Note - Ryann Galdamez PA - 06/03/2021 9:16 PM CDT Associated Problem(s): Atrial fibrillation with RVR (CMS/HCC) (HCC) (Deleted) restart losartan low dose. Advised goal bp 120-130/80 - she will call over coming week with bp and pulse Will refer to cv for further evaluation and treatment * Assessment & Plan Note - Ryann Galdamez PA - 06/03/2021 9:15 PM CDT Associated Problem(s): Anxiety (Resolved 03/03/2023) Resume xanax as she has discontinued narcotic pain meds documented in this encounter Plan of Treatment Scheduled Orders Name Type Priority Associated Diagnoses Orde r Schedule CBC with auto differential Lab Routine Iron deficiency anemia, unspecified iron deficiency anemia type q1w for 12 Occurrences starting 06/03/2021 until 06/03/2022, 1 completed Scheduled Referrals Name Type Priority Associated Diagnoses Orde r Schedule Ambulatory referral to Hematology Outpatient Referral Routine Iron deficiency anemia, unspecified iron deficiency anemia type Expected: 06/17/2021 (Approximate), Expires: 06/03/2022 documented as of this encounter Procedures Procedure Name Priority Date/Time Associated Diagnosis Comments CBC WITH AUTO DIFFERENTIAL Routine 06/06/2021 1:07 PM CDT Iron deficiency anemia, unspecified iron deficiency anemia type documented in this encounter Results * (ABNORMAL) CBC with auto differential (06/06/2021 1:07 PM CDT) WBC 5.2 3.8 - 10.8 Thousand/u L [facility] RBC, POC 3.36(L) 3.80 - 5.10 Million/uL [facility] Hgb 8.5(L) 11.7 - 15.5 g/dL [facility] Hct 27.5(L) 35.0 - 45.0 % [facility] MCV 81.8 80.0 - 100.0 fL [facility] MCH 25.3(L) 27.0 - 33.0 pg [facility] MCHC 30.9(L) 32.0 - 36.0 g/dL [facility] Rdw 15.3(H) 11.0 - 15.0 % [facility] Platelets 406(H) 140 - 400 Thousand/u L [facility] MPV 10.4 7.5 - 12.5 fL [facility] Neutrophils, abs 3,786 1,500 - 7,800 cells/uL [facility] Lymphocytes, abs 1,050 850 - 3,900 cells/uL [facility] Monocyte abs 291 200 - 950 cells/uL [facility] Eosinophils, abs 42 15 - 500 cells/uL [facility] Basophils, abs 31 0 - 200 cells/uL [facility] Neutrophils 72.8 % [facility] Lymphocyte pct 20.2 % [facility] Monocytes 5.6 % [facility] Eosinophils 0.8 % [facility] Basophils 0.6 % [facility] Blood specimen (specimen) 06/06/2021 1:07 PM CDT 06/06/2021 1:07 PM CDT Ryann RASHID LAB BLOOD ORDERABLES Final Result [facility] [address] [place] [address] documented in this encounter Visit Diagnoses Diagnosis Cerebrovascular accident (CVA) due to occlusion of cerebral artery (HCC)- Primary Anxiety Anxiety state, unspecified Closed fracture of distal end of left fibula with routine healing Iron deficiency anemia, unspecified iron deficiency anemia type Atrial fibrillation with RVR (CMS/HCC) (HCC) Episode of recurrent major depressive disorder, unspecified depression episode severity (HCC) documented in this encounter Discontinued Medications Medication Sig Discontinue Reason Start Date End Da te FLUoxetine (PROzac) 40 mg capsule Take 1 capsule (40 mg total) by mouth daily 05/30/2021 06/03/2021 ondansetron (Zofran) 4 mg tablet Take 1 tablet (4 mg total) by mouth every 8 (eight) hours as needed for nausea or vomiting 05/31/2021 06/03/2021 oxyCODONE (ROXICODONE) 5 mg immediate release tabletIndications:Pain Take 1 tablet (5 mg total) by mouth every 4 (four) hours as needed for pain for up to 14 days 05/29/2021 06/03/2021 glipiZIDE (GLUCOTROL) 10 mg tablet TAKE 1 TABLET BY MOUTH 2 TIMES A DAY BEFORE BREAKFAST AND LUNCH 02/19/2021 06/03/2021 documented as of this encounter Care Teams Clinical Research Nurse Relationship Specialty Start Date End Date Ryann Galdamez PA PCP - General Hands Parter 04/02/21 01/22/22 documented as of this encounter
--- OUTSIDE RECORDS SUMMARY | 2024-03-13 01:11 | XMS_ITS | Encounter Summary ---
Author Organization [facility] Medical [facility] Address [address] [place] [address] Care Team Providers Care Potline Monitor Name Role Phone Ryann Galdamez Primary Care Provider [phone]- [phone] Reason for Visit * Reason Onset Date Comments verbal consent for home health orders 05/30/2021 Encounter Details Date Type Department Care Team (Late st Contact Info) Description 05/30/2021 Telephone [facility] Medical [facility] Family Medicine [address] [place] [address] Ryann Galdamez PA [facility] [place] [address] verbal consent for home health orders Social History Tobacco Use Types Packs/Day Years Used Date Smoking Tobacco: Never Smokeless Tobacco: Never Alcohol Use Standard Drinks/Week Comments Yes 0 (1 standard drink = 0.6 oz pur e alcohol) 1/mo AUDIT-C Answer Date Recorded Q1: How often do you have a drink containing alc ohol? Never 05/31/2021 Average Number of Drinks Not on file 022 Q3: How often do you have si x or more drinks on one occasion? 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 documented in this encounter Plan of Treatment Not on file documented as of this encounter Visit Diagnoses Not on filedocumented in this encounter Care Teams Potline Monitor Relationship Specialty Start Date End Date Ryann Galdamez PA PCP - General Packing And Wrapping Supervisor 04/02/21 01/22/22 documented as of this encounter
--- OUTSIDE RECORDS SUMMARY | 2024-03-13 01:11 | XMS_ITS | Encounter Summary ---
Author Organization [facility] Medical [facility] Address [address] [place] [address] Care Team Providers Care Fabric Pattern Grader Name Role Phone Ryann Galdamez Primary Care Provider [phone]- [phone] Chris Mendes MD Unavailable [phone] Keli Orozco RN Unavailable Unavailable Alysa Newton RN Unavailable [phone] Cuba Larsen MD Primary Care Provider [phone] Encounter Details Date Type Department Care Team (Late st Contact Info) Description 06/02/2021 Orders Only [facility] Health Information Management [address] [place] [address] Scanning, Provider Social History Tobacco Use Types Packs/Day Years [...] on file 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 Gender Identity Not on file Sexual Orientation Not on file documented as of this encounter Plan of Treatment Not on file documented as of this encounter Procedures Procedure Name Priority Date/Time Associated Diagnosis Comments SCAN - LABS 06/02/2021 documented in this encounter Results * SCAN - LABS (06/02/2021) us Provider Scanning Final Result documented in this encounter Visit Diagnoses Not on filedocumented in this encounter Care Teams Fabric Pattern Grader Relationship Specialty Start Date End Date Ryann Galdamez PA PCP - General Mobile Architect 04/02/21 01/22/22 Cuba Larsen MD [address] [facility] [address] [place] [id number] PCP - General Family Medicine 01/23/22 Chris Mendes MD Referring Physician Cardiology 12/23/21 Keli Orozco, nitric acid plant operatorEarly Childhood Assistant Cardiology 12/23/21 04/15/23 Alysa Newton, RN [address] [facility] [address] [place] [address] Early Childhood Assistant Cardiology 12/23/21 documented as of this encounter
--- OUTSIDE RECORDS SUMMARY | 2024-03-13 01:11 | XMS_ITS | Encounter Summary ---
Author Organization [facility] Address 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 Home blood pressures are running 120-150 over 90s with pulsein the low 100s. She denies side effects with the losartan. We will increase the losartan to 50 mg daily. She also notes concern over the anemia, and generalized weakness. We will repeat a CBC and BMP today, she will report [facility] to have this completed. She will contact us or report to the ER if symptoms are worsening or pulse is 101 or higher. She has an appointment next week for follow-up that she will keep. * Telephone Encounter - Ashanti Mitchell MA - 06/13/2021 11:22 AM CDT Patient called in worried about her anemia, she said she is feeling weak. She wants to talk to provider personally. documented in this encounter Plan of Treatment Not on file documented as of this encounter Procedures Procedure Name Priority Date/Time Associated Diagnosis Comments CBC WITH AUTO DIFFERENTIAL Routine 06/13/2021 12:38 PM CDT Iron deficiency anemia, unspecified iron deficiency anemia type BASIC METABOLIC PANEL Routine 06/13/2021 12:38 PM CDT Iron deficiency anemia, unspecified iron deficiency anemia type documented in this encounter Results * (ABNORMAL) Basic metabolic panel (06/13/2021 12:38 PM CDT) Glucose 162(H) 65 - 99 mg/dL [facility] Comment: ? Fasting reference interval For someone without known diabetes, a glucose value >125 mg/dL indicates that they may have diabetes and this should be confirmed with a follow-up test. BUN 17 7 - 25 mg/dL [facility] Creatinine 0.59(L) 0.60 - 0.88 mg/dL [facility] Comment: For patients >49 years of age, the reference limit for Creatinine is approximately 13% higher for people identified as -Honduran. eGFR NON-AFR. ZIMBABWEAN 87 > OR = 60 mL/min/1. 73m2 [facility] EGFR 100 > OR = 60 mL/min/1. 73m2 [facility] BUN/creat ratio 29(H) 6 - 22 (calc) [facility] Sodium 137 135 - 146 mmol/L [facility] Potassium, pl 4.5 3.5 - 5.3 mmol/L [facility] Chloride 104 98 - 110 mmol/L [facility] CO2 26 20 - 32 mmol/L [facility] Calcium 9.2 8.6 - 10.4 mg/dL [facility] Blood specimen (specimen) 06/13/2021 12:38 PM CDT 06/13/2021 12:39 PM CDT Ryann RASHID LAB BLOOD ORDERABLES Final Result [facility] [address] [place] [address] * (ABNORMAL) CBC with auto differential (06/13/2021 12:38 PM CDT) WBC 5.0 3.8 - 10.8 Thousand/u L [facility] RBC, POC 3.49(L) 3.80 - 5.10 Million/uL [facility] Hgb 9.0(L) 11.7 - 15.5 g/dL [facility] Hct 29.3(L) 35.0 - 45.0 % [facility] MCV 84.0 80.0 - 100.0 fL [facility] MCH 25.8(L) 27.0 - 33.0 pg [facility] MCHC 30.7(L) 32.0 - 36.0 g/dL [facility] Rdw 16.0(H) 11.0 - 15.0 % [facility] Platelets 323 140 - 400 Thousand/u L [facility] MPV 10.4 7.5 - 12.5 fL [facility] Neutrophils, abs 3,370 1,500 - 7,800 cells/uL [facility] Lymphocytes, abs 1,200 850 - 3,900 cells/uL [facility] Monocyte abs 370 200 - 950 cells/uL [facility] Eosinophils, abs 40 15 - 500 cells/uL [facility] Basophils, abs 20 0 - 200 cells/uL [facility] Neutrophils 67.4 % [facility] Lymphocyte pct 24.0 % [facility] Monocytes 7.4 % [facility] Eosinophils 0.8 % [facility] Basophils 0.4 % [facility] Blood specimen (specimen) 06/13/2021 12:38 PM CDT 06/13/2021 12:39 PM CDT Ryann RASHID LAB BLOOD ORDERABLES Final Result [facility] [address] [id number] documented in this encounter Visit Diagnoses Diagnosis Iron deficiency anemia, unspecified iron deficiency anemia type- Primary documented in this encounter Discontinued Medications Medication Sig Discontinue Reason Start Date End Da te losartan (COZAAR) 25 mg tablet Take 1 tablet (25 mg total) by mouth daily 06/03/2021 06/13/2021 documented as of this encounter Care Teams Chucking Machine Set Up Operator Tool Relationship Specialty Start Date End Date Ryann Galdamez PA PCP - General Code Enforcement Officer 04/02/21 01/22/22 documented as of this encounter
--- OUTSIDE RECORDS SUMMARY | 2024-03-13 01:11 | XMS_ITS | Encounter Summary ---
Author Organization [facility] Address [address] [place] [address] Care Team Providers Care Manager Environmental Name Role Phone Ryann Galdamez Primary Care Provider [phone] Reason for Referral * Consultation (Routine) - Closed Specialty Diagnoses / Procedures Referred By Indra muñoz Referred To Contact Neurology Diagnoses Cerebrovascular accident (CVA), unspecified mechanism (HCC) David Mitchell MD [address] [facility] [address] [place] [address] Phone: tel: fax: [facility] Stroke [address] [place] [address] Phone: tel: fax: Referral ID Status Reason Start Date Expiration Date V isits Requested Visits Authorized [id number] Closed Specialty Services Required 05/29/2021 06/28/2022 1 1 Question Answer Please select the performing region: [facility] (All Locations) [167] # of visits: 1 Comments Please schedule Prema Pearce for the next available new patient appointment with one of the following providers Stroke CAM Dr. Mitchell or next available provider. I evaluated Prema Pearce in the inpatient neurology service and have approved this visit. Reason for Visit * Reason Comments Facial Droop Encounter Details Date Type Department Care Team (Latest Contact Info) Description 05/25/2021 7:50 PM BUSINESS DEVELOPMENT EXECUTIVE - 05/29/2021 7:34 PM CDT Hospital Encounter [facility] [address] [place] [address] Kunal Dalton MD [address] [place] [address] David Mitchell MD [address] [place] [address] Kylah Lilly MD [address] [place] [address] Cerebrovascular accident (CVA), unspecified mechanism (HCC) (Primary Dx); Longstanding persistent atrial fibrillation (CMS/HCC) (HCC); Primary hypertension; Hypothyroidism, unspecified type Discharge Disposition: Discharge to home or self care Social History Tobacco Use Types Packs/Day Years Used Date Smoking Tobacco: Never Smokeless Tobacco: Never Alcohol Use Standard Drinks/Week Comments Yes 0 (1 standard drink = 0.6 oz pur e alcohol) 1/mo AUDIT-C Answer Date Recorded Q1: How often do you have a drink containing alc ohol? Never 09/13/2020 Average Number of Drinks Not on file 021 Q3: How often do you have si x or more drinks on one occasion? Never 09/13/2020 PHQ-2 Answer Date Recorded PHQ-2 Total Score (If total score is 3 or more points, staff should administer the PHQ-9) 0 05/27/2021 Comments No Sex and Gender Information Value Date Recorded Sex Assigned at Not on file Legal Sex Female 4:20 AM BUSINESS DEVELOPMENT EXECUTIVE Gender Identity Not on file Sexual Orientation Not on file documented as of this encounter Last Filed Vital Signs Vital Sign Reading Time Taken Comments Blood Pressure 138/84 05/29/2021 3:13 PM CDT Pulse 94 05/29/2021 3:13 PM CDT Temperature 37.2 ??C (99 ??F) 05/29/2021 3:13 PM CDT Respiratory Rate 18 05/29/2021 3:13 PM CDT Oxygen Saturation 96% 05/29/2021 3:13 PM CDT Inhaled Oxygen Concentration - - Weight 74.4 kg (164 lb 0.4 oz) 05/25/2021 11:00 PM BUSINESS DEVELOPMENT EXECUTIVE Height 157.5 cm (5' 2 ) 05/25/2021 7:53 PM BUSINESS DEVELOPMENT EXECUTIVE Body Mass Index 30 05/25/2021 7:53 PM BUSINESS DEVELOPMENT EXECUTIVE documented in this encounter Discharge Diagnoses Diagnosis Cerebral infarction due to embolism of right middle cerebral artery (HCC) - CEREBRAL INFARCTION DUE TO EMBOLISM OF RIGHT MIDDLE CEREBRAL ARTERY Chronic diastolic (congestive) heart failure ([facility]) - CHRONIC DIASTOLIC (CONGESTIVE) HEART FAILURE Hypertensive heart disease with heart failure ([facility]) ([facility]) - HYPERTENSIVE HEART DISEASE WITH HEART FAILURE Unspecified hypertensive heart disease with heart failure Hypocalcemia - HYPOCALCEMIA Homonymous bilateral field defects, left side - HOMONYMOUS BILATERAL FIELD DEFECTS, LEFT SIDE Type 2 diabetes mellitus without complications ([facility]) ([facility]) - TYPE 2 DIABETES MELLITUS WITHOUT COMPLICATIONS Anemia, unspecified - ANEMIA, UNSPECIFIED Hypothyroidism, unspecified - HYPOTHYROIDISM, UNSPECIFIED Obesity, unspecified - OBESITY, UNSPECIFIED Body mass index (BMI) 30.0-30.9, adult - BODY MASS INDEX [BMI] 30.0-30.9, ADULT Rheumatic disorders of both mitral and aortic valves - RHEUMATIC DISORDERS OF BOTH MITRAL AND AORTIC VALVES Facial weakness - FACIAL WEAKNESS Hyperlipidemia, unspecified - HYPERLIPIDEMIA, UNSPECIFIED Obstructive sleep apnea (adult) (pediatric) - OBSTRUCTIVE SLEEP APNEA (ADULT) (PEDIATRIC) Atherosclerotic heart disease of [place] coronary artery without angina pectoris - ATHEROSCLEROTIC HEART DISEASE OF [place] CORONARY ARTERY WITHOUT ANGINA PECTORIS Old myocardial infarction - OLD MYOCARDIAL INFARCTION Unspecified atrial fibrillation (HCC) - UNSPECIFIED ATRIAL FIBRILLATION Gastro-esophageal reflux disease without esophagitis - GASTRO-ESOPHAGEAL REFLUX DISEASE WITHOUT ESOPHAGITIS Anxiety disorder, unspecified - ANXIETY DISORDER, UNSPECIFIED Nihss score 6 - NIHSS SCORE 6 Hypomagnesemia - HYPOMAGNESEMIA Disorders of magnesium metabolism Stress fracture, left ankle, initial encounter for fracture - STRESS FRACTURE, LEFT ANKLE, INITIAL ENCOUNTER FOR FRACTURE Contact with and (suspected) exposure to covid-19 - CONTACT WITH AND (SUSPECTED) EXPOSURE TO COVID-19 Dysphagia, unspecified - DYSPHAGIA, UNSPECIFIED Dysarthria and anarthria - DYSARTHRIA AND ANARTHRIA Allergy status to other drugs, medicaments and biological substances - ALLERGY STATUS TO OTHER DRUGS, MEDICAMENTS AND BIOLOGICAL SUBSTANCES school community relations coordinator (current) use of anticoagulants - CAFETERIA COUNTER ATTENDANT (CURRENT) USE OF ANTICOAGULANTS Long-term (current) use of anticoagulants penitentiary (current) use of aspirin - CAFETERIA COUNTER ATTENDANT (CURRENT) USE OF ASPIRIN school community relations coordinator (current) use of oral hypoglycemic drugs - GROUP HOME (CURRENT) USE OF ORAL HYPOGLYCEMIC DRUGS Hormone replacement therapy - HORMONE REPLACEMENT THERAPY Other director industrial relations (current) drug therapy - OTHER GROUP HOME (CURRENT) DRUG THERAPY Personal history of pulmonary embolism - PERSONAL HISTORY OF PULMONARY EMBOLISM Fall on same level, unspecified, initial encounter - FALL ON SAME LEVEL, UNSPECIFIED, INITIAL ENCOUNTER Bedroom of unspecified non-institutional (private) residence as the place of occurrence of the external cause - BEDROOM OF UNSPECIFIED NON-INSTITUTIONAL (PRIVATE) RESIDENCE THE PLACE OF OCCURRENCE OF THE EXTER documented in this encounter Discharge Summaries * Jazmyn Miranda MD PhD - 05/29/2021 2:28 PM CDT Inpatient Discharge Summary BRIEF OVERVIEW Admitting Provider: David Mitchell MD Discharge Provider: David Mitchell MD Primary Care Physician at Discharge: Ryann Galdamez PA [phone] Admission Date: 05/25/2021 Discharge Date: 05/29/2021 Admission Location: [facility] Problems/Diagnoses: Active Problems: No Active Problems: There are no active problems currently on the Problem List. Please update the Problem List and refresh. Resolved Problems: No resolved hospital problems. DETAILS OF HOSPITAL STAY Presenting Problem/History of Present Illness: Prema Pearce is an 81 year old female with history of Afib (eliquis held x1 week for lithotropsy), moderate , HTN, T2DM, HFpEF, prior PE (2019), AYAD on CPAP, hypothyroidism, and anxiety who presented with intermittent L facial droop and dysarthria concerning for stroke. CTA demonstrated R superior division M2 occlusion (core 0, Tmax 33). NO GO for tPA as she was OOW. GO for thrombectomy with TICI 3 reperfusion after two passes. Patient was reportedly at her baseline state of health until the morning of 05/25 when she first noticed drooping of the left side of her face and slurred speech. LKN some time on the evening of 05/24.Her symptoms were intermittent throughout the day, but then became fixed around 1500 on 05/25. Her family spoke with her later in the evening and decided to call EMS. Upon arrival tot he ED, patient was afebrile, HR 80s in AFib, BP 141/112, 100% on RA. Glucose 108. Anti- Xa <0.15. A code stroke was activated and she received an initial NIHSS of 6 for LFD, dysarthria, L superior quadrantanopia, Lsensory deficits, and L extinction to simultaneous visual and tactile stimulation. Initial HCT without contrast demonstrated chronic L parieto-occipital infarct. CTA demonstrated Right M2 branch occlusion, core 0, Tmax 33, in the right frontal lobe. She was a NO GO for tPA given her symptom onset was > 4.5 hrs prior to presentation. She was a GO for thrombectomy (mRS 0) and achieved TICI 3 reperfusion after two passes with stent retriever. The clot was reportedly very fibrous and somewhat dif ficult to retrieve. The procedure was complicated by AFib with RVR (max HR 130s); given this in conjunction with concern for development of vasospasm, she received 12.5 mg total of intra-arterial Verapamil. There were otherwise no complications. EBL 100 cc. R radial access closed with TR band. She was sedated with Propofol and required initiation of Phenylephrine gtt. She arrived to the NNICU intubated and sedated on 30 of Propofol and on 1.2 of Rajendra with BP 154/101.She opened eyes to voice upon arrival, moved all extremities within the plane of the bed, and followed simple commands. She was quickly weaned off sedation and pressors and was extubated without difficulty. Of note, patient lives alone and is fully independent in all ADLs/IADLs. She continues to drive andmanages her own medications. She has been on Eliquis since she developed PEs after her R knee replacement in May 2019. She has had a challenging year as her son recently from COVID complications 2 weeks ago and she lost her in September 2020. Hospital Course: Prema Pearce is a 81 y.o. female with a past medical history significant for AFib (on Eliquis, held for 1 week for lithotropsy), aortic stenosis, HTN, T2DM, HFpEF, prior PE (2019), AYAD on CPAP,hypothyroidism (on synthroid), and anxiety who presented on 05/25/21 with L facial droop and dysarthria. Last known at baseline at bedtime on 05/24. NIHSS 6 on initial assessment. L M2 occlusion. NO GOfor tPA. GO for thrombectomywith TICI 3 full reperfusion after 2 passes with stent retriever . Stroke risk factors are: hypertension diabetes mellitus atrial fibrillation/flutter age greater than [address] Head without contrast (05/27) showed an unchanged, chronic L parieto-occipital infarct, but no acute abnormalities. Pt was admitted to stroke for risk factor management. # Acute ischemic stroke Pt was admitted with a cardioembolic stroke attributed to Thrombosis of small vessels affecting Middle Cerebral. L M2 occlusion. Neuro exam on admission was notable for L facial droop, dysarthria, L superior quadrantinopia, L sensory deficits, and L extinction. Repeat hCT showed small R grace radiata stroke Workup for risk factor modification revealed: LDL = 15 A1c = 6.2% EKG on admission: atrial fibrillation with T wave abnormality and lengthened QT Telemetry throughout admission: Afib TTE: not done this admission, previously 08/2020 with EF 68%, moderate , no thrombus CTA head/neck: L M2 occlusion. B/l ICA < 30% CT head 05/28: small Right grace radiata stroke The patient was not discharged She was continued on crestor 20mg (LDL 15). She was started on ASA 325 daily for secondary prevention while off AC. Repeat hCT 05/28 The current [place] [employer] guidelines recommend long-term treatment with a high-intensity statin even in patient's with LDL level <100, if tolerated. (The SPARCL trial, Huisa et al. 2010, showed that statin treatment should not be titrated to LDL level.) SMART Consult was performed and PT/OT recommended discharge to home with home health PT/OT. The patient will follow up in the [facility] Stroke clinic. [address] [address] Risk factors were optimized on discharge. Patient and family were advised regarding the risks of new stroke, signs and symptoms of stroke, and how best to avoid a further event. Other medical problems addressed during this hospitalization: #Atrial fibrillation: Previously diagnosed atrial fibrillation managed on an outpatient basis with eliquis 5mg BID (held for 1 wk for lithotropsy) and coreg 25 BID. Eliquis 5mg BID was re-started on 05/29. Her ASA 81mg wasstopped in conjunction with discussion with outpatient periodicals clerk #L ankle fracture: Xrays performed during this inpatient stay revealed a nondisplaced distal fibular fracture. Weight bearing XR were stable without displacement. Orthopedics consult recommended management with CAM boot. PT assessment recommended discharge with wheeled walker and with outpatient PT follow up. Follow up appointment with Dr. Vora on 06/13. #Kidney stones s/p lithotropsy: Lithotropsy procedure took place on 05/21. Held Eliquis anticoagulation for 1 week in preparation forthis procedure. Currently recovering well. Manage pain with Tylenol PRN. #Moderate /HFpEF: Last EF 66% with mod 08/2020. Medications at home include lasix 40 and coreg 25 BID. Lasix held during admission, but should continue on discharge. Euvolemic on exam. Follows with Dr. Walker for cardiology care. We discussed with her periodicals clerk who is okay with stopping aspirin given patient will be on Eliquis. #T2DM A1C on admission 6.2%. Blood glucose managed with insulin while inpatient. Re- start home metformin 500 BID, glipizide 10 BID on discharge #HTN Blood pressure slightly hypertensive during this admission, reaching up to 160s/110s. Managed on Coreg 25mg BID, Lasix 40 held. Restart both Coreg and Lasix on discharge. #HLD Managed on crestor 20mg, please continue this medication on discharge #Anemia: Baseline 9-10 per Care Everywhere. Hgb 9 on admission, dipped to 7.8 on 05/27- 05/28. Hgb 8.8 on day of discharge (05/29). Iron studies and CBC WNL. #Positive UA: UA obtained in ED concerning for 11-20 WBC, 2+ leukocyte esterase, and 1+ bacteria. Urine culture showed clinically insignificant growth. Complained of no symptoms of UTI. Received antibiotics after lithotropsy procedure, did not receive antibiotics during this admission. #AYAD on CPAP: Uses nightly CPAP #Hypothyroidism: Cont home synthroid 50 mcg daily #Anxiety: Managed at home with xanax 0.5 BID PRN, prescribed by PCP Dr. Ryann Galdamez. Recommend switching to alternate anti-anxiety medication due to potential adverse side effects in advanced age/post-stroke status. Medication Changes During Admission RESTART eliquis 5mg twice daily DISCONTINUE ASA 81 mg daily DISCONTINUE xanax 0.5 mg twice daily as needed Disposition/Home Health Needs: PT recommendations include discharge with wheeled walker, discharge to home with intermittent assist, consult for home health PT Active Issues Requiring Follow-up: 1. Follow up in our Stroke CAM clinic 2. Follow up with Ortho clinic for ankle fracture 3. Follow up with periodicals clerk and PCP as scheduled Test Results Pending at Discharge: Operative Procedures Performed: Other Procedures: None Pertinent Test Results: See above Discharge Details Physical Exam at Discharge: Discharge Condition: stable Pulse: 94 Resp: 18 BP: 138/84 Temp: 37.2 ??C (99 ??F) Weight: 74.4 kg (164 lb 0.4 oz) Pertinent Exam Findings at Discharge: MENTAL STATUS: Awake, alert, fully oriented x4 (to person, place, date, and reason for presentation). Some difficulty remembering parts of history and presidents (missed Trump), but could do days of week backwards. LANGUAGE: Intact to conversation. Follows simple verbal commands but difficulty with two step/crossbody commands (needed to correct herself). Repetition intact. Naming intact CRANIAL NERVES: Pupils equal, round, and reactive to light (4mm->2mm). Visual lopes intact to confrontational testing. Extraocular motions intact without nystagmus. Facial sensation intact to light touch bilaterally. Mild L NLFF with normal activation bilaterally. Hearing intact bilaterally. Palate raises symmetrically. No dysphonia. SCMs and shoulder shrug intact and symmetric. Tongue extends midline. MOTOR: 5/5 throughout except 4/5 in distal LLE at ankle due to pain from L ankle fracture. No pronator drift. Mild intention tremor bilaterally SENSORY: Sensation intact throughout to light touch throughout. No extinction or neglect REFLEXES: 2+ and symmetric throughout. No spreading. Toes downgoing bilaterally. COORDINATION: No dysmetria on adpflw-mssp-[id number] bilaterally. Mild intention tremor bilaterally GAIT: Did not assess Discharge Disposition: Code Status at Discharge: Full code Discharge Instructions: You were hospitalized at [facility] for a new stroke. MEDICATION CHANGES 1. CONTINUE eliquis 5mg twice daily 2. CONTINUE crestor 20mg daily 3. START prozac 40mg daily 4. STOP aspirin 81mg daily 5. STOP xanax for anxiety FOLLOW-UP APPOINTMENTS 1. We have asked the the Stroke Clinic to call you to arrange a follow-up appointment. IF YOU DO NOT HEAR FROM THE CLINIC WITHIN THE NEXT 7 DAYS, please call them at [phone] to make an appointment. You may also call them with any questions that arise in the meantime. 2. Follow up with orthopedics for your ankle fracture 06/13/21 w/ Dr. Vora at [facility] 3. Follow up with your primary doctor and periodicals clerk Call Your Doctor If: CALL 131 IF YOU HAVE NEW SIGNS OF A [...] STROKE / TIA RISK: * If you smoke, STOP - smoking doubles your risk of stroke. [...] leading cause of stroke. If you have it, work with your doctor to control it. * Include exercise in your daily routine. Check with your primary doctor regarding exercise restrictions. * If you are overweight, discuss weight loss with you primary doctor. This helps control high bloodpressure, diabetes, and high cholesterol. Other Instructions Ambulatory referral to Home Health Service Line: Home Health Primary disciplines requested: Physical Therapy Secondary disciplines requested: Occupational Therapy Home Health Services: Therapy to Eval/ Treat Strengenthing/ Balance Physician to follow patient's care (the person listed here will be responsible for signing ongoing orders): PCP Requested Start of Care Date: Within 2 - 3 Days Special instructions (labs, wound care, etc.): PT/OT evaluate and treat. I attest that I or another qualified licensed provider saw the patient 90 days prior to or 30 days post admission and this face to face encounter meets the necessary Home Health requirements. The face to face encounter occurred on (date): 05/28/2021 The encounter with the patient was in whole, or in part, for the following medical condition, whichis the primary reason for home health care. (List medical condition): Stroke. I certify that, based on my findings, the following services are medically necessary skilled home health services: Therapy to Eval/ Treat Strengenthing/ Balance Clinical findings that support the need for home care: Medical condition requiring skilled assessment/education I certify that my clinical findings support patient's homebound status. Homebound criteria met because: Requires assistance of another to leave home safely Discharge Medications: Current Medications TAKE these medications acetaminophen 500 mg tablet Take 1,000 mg by mouth as needed for pain Commonly known as: TYLENOL CALCIUM CARBONATE ORAL Take 600 mg by mouth 2 (two) times a day carvediloL 25 mg tablet TAKE 1 TABLET BY MOUTH TWICE A DAY WITH FOOD Commonly known as: COREG Eliquis 5 mg tablet TAKE 1 TABLET BY MOUTH TWICE A DAY Generic drug: apixaban FLUoxetine 40 mg capsule Take 1 capsule (40 mg total) by mouth daily Commonly known as: PROzac Start taking on: May 30, 2021 furosemide 40 mg tablet Take 1 tablet (40 mg total) by mouth daily Commonly known as: LASIX glipiZIDE 10 mg tablet TAKE 1 TABLET BY MOUTH 2 TIMES A DAY BEFORE BREAKFAST AND LUNCH Commonly known as: GLUCOTROL levothyroxine 50 mcg tablet Take 1 tablet (50 mcg total) by mouth daily Commonly known as: SYNTHROID metFORMIN 500 mg tablet TAKE 1 TABLET BY MOUTH TWICE A DAY WITH MEALS Commonly known as: GLUCOPHAGE oxyCODONE 5 mg immediate release tablet Take 1 tablet (5 mg total) by mouth every 4 (four) hours as needed for pain for up to 14 days For: pain Commonly known as: ROXICODONE rosuvastatin 20 mg tablet TAKE 1 TABLET BY MOUTH EVERY DAY Commonly known as: CRESTOR tamsulosin 0.4 mg extended release capsule Take 1 capsule (0.4 mg total) by mouth daily with dinner Commonly known as: FLOMAX zolpidem 10 mg tablet Take 1 tablet (10 mg total) by mouth nightly as needed for sleep for sleep Commonly known as: HUSAM Outpatient Follow-Up: Future Appointments Date Time Provider Department Center 06/13/2021 8:00 AM Moses Vora MD [facility] 10/17/2021 9:00 AM Chris Mendes MD [id number] Cardiology Contact Information for Follow-ups Ryann Galdamez PA Specialty: Silo Man, Physician Web Services Professional, Pediatrics, Family Medicine Relationship: PCP - General [address] [place] [address] Next Steps: Schedule an appointment as soon as possible for a visit in 1 week(s) Instructions: We attempted to schedule an appointment, please call them to arrange. Thank you [facility] (All Locations) Next Steps: Follow up Comments: Please schedule Prema Pearce for the next available new patient appointment with one of the following providers Stroke RENETTA Mitchell or next available provider. I evaluated Prema Torres in the inpatient neurology service and have approved this visit. Questions: Please select the performing region: [facility] (All Locations) # of visits: 1 Referral Status: Pending Coordinator Review Cosigned by David Mitchell MD at 05/30/2021 1:26 PM CDT Associated attestation - David Mitchell MD - 05/30/2021 1:26 PM CDT I have seen and examined the patient on 05/29/21. I agree with the findings and plan of care as discussed with the resident/fellow.. documented in this encounter Discharge Instructions * Discharge Instructions* Jazmyn Miranda MD PhD - 05/29/2021 2:30 PM CDT You were hospitalized at [facility] for a new stroke. MEDICATION CHANGES 1. CONTINUE eliquis 5mg twice daily 2. CONTINUE crestor 20mg daily 3. START prozac 40mg daily 4. STOP aspirin 81mg daily 5. STOP xanax for anxiety FOLLOW-UP APPOINTMENTS 1. We have asked the the Stroke Clinic to call you to arrange a follow-up appointment. IF YOU DO NOT HEAR FROM THE CLINIC WITHIN THE NEXT 7 DAYS, please call them at [phone] to make an appointment. You may also call them with any questions that arise in the meantime. 2. Follow up with orthopedics for your ankle fracture 06/13/21 w/ Dr. Vora at [facility] 3. Follow up with your primary doctor and periodicals clerk Call Your Doctor If: CALL 611 IF YOU HAVE NEW SIGNS OF A [...] STROKE / TIA RISK: * If you smoke, STOP - smoking doubles your risk of stroke. [...] leading cause of stroke. If you have it, work with your doctor to control it. * Include exercise in your daily routine. Check with your primary doctor regarding exercise restrictions. * If you are overweight, discuss weight loss with you primary doctor. This helps control high bloodpressure, diabetes, and high cholesterol. * Appointments* Ingrid Duval RN - 05/29/2021 5:54 PM CDT TO FIND A COUNSELOR Next Steps: Follow up Instructions: PLEASE CONTACT YOUR INSURANCE COMPANY TO FIND AN IN-NETWORK PROVIDER. THANK YOU! * Discharge Instr - Other Orders* Ingrid Duval RN - 05/29/2021 5:[address] [facility] - PHYSICAL & OCCUPATIONAL THERAPY You should be contacted by the home health care agency within 1-2 days regarding scheduling visit. If you don't hear from them, call the number listed above to follow-up. documented in this encounter Medications at Time of Discharge CALCIUM CARBONATE ORAL Take 600 mg by mouth 2 (two) times a day acetaminophen (TYLENOL) 500 mg tablet Take 2 tablets (1,000 mg total) by mouth as needed for pain When Needed 3 carvediloL (COREG) 25 mg tablet TAKE 1 TABLET BY MOUTH TWICE A DAY WITH FOOD 180 tablet 3 10/01/2020 2 cephalexin (KEFLEX) 500 mg capsule Take 500 mg by mouth 3 (three) times a day 05/21/2021 2 Eliquis 5 mg tablet TAKE 1 TABLET BY MOUTH TWICE A DAY 180 tablet 3 09/19/2020 2 FLUoxetine (PROzac) 40 mg capsule Take 1 capsule (40 mg total) by mouth daily 30 capsule 11 05/30/2021 2 furosemide (LASIX) 40 mg tablet Take 1 tablet (40 mg total) by mouth daily 30 tablet 11 12/06/2020 2 glipiZIDE (GLUCOTROL) 10 mg tablet TAKE 1 TABLET BY MOUTH 2 TIMES A DAY BEFORE BREAKFAST AND LUNCH 180 tablet 1 02/19/2021 2 levothyroxine (SYNTHROID) 50 mcg tablet Take 1 tablet (50 mcg total) by mouth daily 30 tablet 11 01/21/2021 2 metFORMIN (GLUCOPHAGE) 500 mg tablet TAKE 1 TABLET BY MOUTH TWICE A DAY WITH MEALS 180 tablet 1 03/05/2021 2 oxyCODONE (ROXICODONE) 5 mg immediate release tabletIndications :Pain Take 1 tablet (5 mg total) by mouth every 4 (four) hours as needed for pain for up to 14 days 20 tablet 05/29/2021 2 rosuvastatin (CRESTOR) 20 mg tablet TAKE 1 TABLET BY MOUTH EVERY DAY 90 tablet 3 09/11/2020 2 tamsulosin (FLOMAX) 0.4 mg extended release capsule Take 1 capsule (0.4 mg total) by mouth daily with dinner 30 capsule 05/29/2021 2 zolpidem (AMBIEN) 10 mg tabletIndications :Sleep disturbance Take 1 tablet (10 mg total) by mouth nightly as needed for sleep for sleep 90 tablet 04/29/2021 2 documented as of this encounter Ordered Prescriptions Prescription Sig Dispense Quantity Refills Last Filled Start Date End Date oxyCODONE (ROXICODONE) 5 mg immediate release tabletIndications: Pain Take 1 tablet (5 mg total) by mouth every 4 (four) hours as needed for pain for up to 14 days 20 tablet 05/29/2021 2 tamsulosin (FLOMAX) 0.4 mg extended release capsule Take 1 capsule (0.4 mg total) by mouth daily with dinner 30 capsule 05/29/2021 2 FLUoxetine (PROzac) 40 mg capsule Take 1 capsule (40 mg total) by mouth daily 30 capsule 11 05/30/2021 2 documented in this encounter Discharge Disposition Disposition Code Departure Means Destination Discharge to home or self care documented in this encounter Progress Notes * Ingrid Duval RN - 05/29/2021 5:58 PM CDT 05/28/21 1605 Discharge Summary Discharge Disposition Home with Home Health (PT/OT/RN) Equipment/Provider Needs Home Provider Services Needs Identified Home Care Agency Information Home [facility] Name [facility] Home [facility] Contact Spoken to Luc[facility]ers will accept Home Care Agency Order Faxed to [phone] Discharge Additional Assistance Does the patient need discharge transport arranged? No Patient to d/c to home today. Faxed PA Summary, orders to number above. Patient has family for transportation. PCP office closed- pt to make appt. Nurse to instruct on d/c orders. * Elba Christophe, PT - 05/29/2021 9:12 AM CDT Physical Therapy Physical Therapy Progress [...] treatment team and contact the PT or MINE CAR DISPATCHER currently assigned to this patient. If a physical therapy clinician is not assigned to this patient, please call [phone]. Multi-Disciplinary Problems (from Physical Therapy) Active Problems Problem: Mobility Start Date: 05/28/21 Goal Start Date Expected End Date End Date STG - Patient will ambulate 150ft with WW with mod I 05/28/21 06/07/21 -- 05/29/21 0912 PT Last Visit Session Type Treatment (and discharge from PT) PT Received On 05/29/21 Safe Environment Arm Band Checked;Chair Alarm placed and activated;Call Light within Reach;NotifiedRN;Patient found sitting in Chair;Overbed Table within Reach (Pt left sitting in chair with call light and chair alarm on) Subjective Agreeable to Therapy Family/Caregiver Present No Precautions Precautions Fall risk Weight Bearing Restrictions Yes LLE Weight Bearing WBAT Braces/Orthoses CAM boot (in place during session) Activity Tolerance Activity Tolerance Comments gabby: somewhat hard Pain Assessment Pain Assessment No/denies pain Cognition Arousal/Alertness Alert;Appropriate responses to stimuli Orientation Oriented X4 (person, place, time, situation) Following Commands Follows all commands and directions without difficulty Balance Balance Yes Static Sitting Balance Static Sitting-Balance Support No upper extremity supported Static Sitting-Sitting Surface Chair Static Sitting-Level of Assistance Independent Static Standing Balance Static Standing-Balance Support Bilateral upper extremity supported (on wheeled walker) Static Standing-Standing Surface Floor Static Standing-Level of Assistance Independent Equipment Use Equipment Use Comments gait belt used Bed Mobility Bed Mobility No (pt sitting in chair upon PT arrival) Transfers Transfer Yes Transfer 1 Transfer From 1 Sit Transfer Type 1 To and from Transfer to 1 Stand Technique 1 Stand to sit;Sit to stand Transfer Device 1 Wheeled walker Transfer Level of Assistance 1 Modified Independent Ambulation Ambulation Yes Ambulation 1 Distance (ft) 1 100 Surface 1 Level tile Device 1 Wheeled walker Assistance 1 Modified Independent Gait: Requires verbal cues to 1 Use assistive device safely Quality of Gait 1 decreased kaleb Stairs Stairs Yes Stairs Number of Stairs 1 12 Rails 1 Left (left handrail using BUE with sidestepping technique) Device 1 No device Assistance 1 Modified Independent Other Comments Other PT Comments Pt reports its going to be difficult coordinating assistance, but assistance is available from family. Pt reports feeling depressed due to recent passing of several loved ones and how like to talk to someone about her mental health. Basic Mobility - 6 Click How much difficulty does the patient have: Turning over in bed 4 How much difficulty does the patient currently have: Sitting down and standing up from a chair witharms? 4 How much difficulty does the patient have: Moving from lying on back to sitting on the side of the bed? 4 How much difficulty does the patient have: Moving to and from a bed to a chair including wheelchair? 4 How much help does the patient currently need: Walk in hospital room? 3 How much help from another person does the patient currently need: Climbing 3-5 steps with a railing? 3 Total 6 Click Score (range 6-24) 22 Assessment Problem List Gait deviations;Decreased strength;Decreased range of motion;Decreased endurance;Impaired balance;Decreased mobility Plan Plan Discharge;If this is the last note, consider this the discharge summary Recommendation/Plan PT Recommendation/Plan Home with intermittent assist;Home Health PT PT Frequency Other (comment) (discharge from PT) PT Equipment Recommended Wheeled walker PT - OK to Discharge Yes PT Evaluation Complete Yes * Sharon Cartwright, OT - 05/29/2021 8:56 AM CDT Occupational Therapy Occupational Therapy Progress [...] not assigned to this patient, please call [phone]. 05/29/21 0803 General Session Type Treatment (discharge) OT Received On 05/29/21 Safe Environment Arm Band Checked;Chair Alarm placed and activated;Call Light within Reach;NotifiedRN;Session Completed Bedside;Patient found in Supine;Overbed Table within Reach (Pt left in chair with alarm set, all needs in reach) Subjective Agreeable to Therapy Subjective Comment I would like to be able to talk to a counselor or someone to help with the emotional and mental things, it has been so much this year Family/Caregiver Present No Precautions Precautions Fall risk Weight Bearing Restrictions Yes LLE Weight Bearing WBAT Braces/Orthoses CAM boot (donned on LLE throughout session) Pain Assessment Pain Assessment No/denies pain Pain Score 0 - No pain Static Sitting Balance Static Sitting-Level of Assistance Independent Static Standing Balance Static Standing-Level of Assistance Independent Grooming Grooming: Where assessed Standing at sink Grooming: Level of assistance Independent LE Dressing LE Dressing: Where assessed Chair LE Dressing: Level of assistance Independent Toileting Toileting: Where assessed Toilet Toileting: Level of assistance Independent Bed Mobility 1 Bed Mobility From 1 Supine Bed Mobility Type 1 To and from Bed Mobility to 1 Edge of bed Level of Assistance 1 Independent Transfer 1 Transfer From 1 Sit Transfer Type 1 To and from Transfer to 1 Stand Technique 1 Sit to stand;Stand to sit Transfer Device 1 Wheeled walker Transfer Level of Assistance 1 Modified Independent Transfers 2 Trials/Comments 2 Functional mobility within room performed with wheeled walker with Mod I Toilet Transfers Toilet Transfer to Standard toilet Toilet Transfer Technique Ambulating Toilet Transfer: Equipment Wheeled walker Toilet Transfers Modified independence Cognition Arousal/Alertness Alert Orientation Oriented X4 (person, place, time, situation) Following Commands Follows all commands and directions without difficulty Safety Judgment Good awareness of safety precautions Compliance/Behavior Easy to engage Other Comments Comments Pt endorses symptoms of depression and grief such as loss of interest in once enjoyed tasks such as cooking or leaving her home. Pt reports she has been through a series of events including loss of her spouse and other family members, needing to move out of her home after loss of her and then personal items being lost in the move. Pt reports she would like to speak with someone regarding emotional/mental care but has not been able to find someone with availability and within her insurance. Pt's RN, CM, and CUSTOMER EXPERIENCE STRATEGIST notified. Daily Activity - 6 Clicks Putting on and taking off regular lower body clothing 4 Bathing 4 Toileting 4 Putting on and taking off upper body clothing 4 Personal Grooming 4 Eating Meals 4 Total Score (range 6-24) 24 Score Interpretation 57.54 Assessment Barriers to Discharge None Plan Plan Discharge;Alter current plan Plan Comments Discharge from OT Recommendation/Plan OT Recommendation Home Health OT;Home with intermittent assist OT Frequency One-time visit (Discharge from this service) (0) Progress Discontinue OT Multi-Disciplinary Problems (from Occupational Therapy) Active Problems Not on file * Jazmyn Miranda MD PhD - 05/29/2021 7:34 AM CDT Images from the original note were not included. STROKE DAILY PROGRESS NOTE Date: 05/29/21 CARE TEAM Patient: Prema Pearce Primary Care Physician: Ryann Galdamez PA Room: [id number] Subjective SUBJECTIVE Prema Pearce is a 81 y.o. right-handed female with a past medical history significant for Afib (eliquis held x5 days for lithotropsy for kidney stone), moderate , HTN, T2DM, HFpEF, prior PE (2019), AYAD on CPAP, hypothyroidism, and anxiety who presented on 05/25 w/LFD+dysarthria (intermittent-> fixed 05/25 1500). LKN 3/11 PM. Initial NIHSS 6 (LFD, dysarthria, L superior quadrantonopia, Lsensory, L extinction). hCT w/chronic L parieto-occipital infarct. CTA demonstrated R superior division M2 occlusion (core 0, Tmax 33). NO GO for tPA as she was OOW. GO for thrombectomy with TICI 3 reperfusion after two passes. Interval History - NAEO - hCT with small R grace radiata infarct - Increased coreg to 25 BID. BP 120-160/110s - Iron studies: Fe 21, TIBC normal, Transferrin Sat 7, Ferritin 34 (not consistent with BAKARI) - repeat XR after working with PT with stable fracture Past Medical/Surgical History Past Medical History: Diagnosis Date ??? Adrenal [...] Pulmonary embolism (HCC) ??? Sleep apnea ??? Zenker's diverticulum Past Surgical History: Procedure Laterality Date ??? BREAST LUMPECTOMY ??? CHOLECYSTECTOMY ??? HAND SURGERY Left plate & screws ??? HYSTERECTOMY ??? INCISION AND DRAINAGE FEMUR Left 05/22/2019 Home Medications HOME MEDICATIONS : acetaminophen (TYLENOL) 500 mg tablet ALPRAZolam (XANAX) 0.5 mg tablet aspirin 81 mg enteric coated tablet CALCIUM CARBONATE ORAL carvediloL (COREG) 25 mg tablet Eliquis 5 mg tablet furosemide (LASIX) 40 mg tablet glipiZIDE (GLUCOTROL) 10 mg tablet levothyroxine (SYNTHROID) 50 mcg tablet metFORMIN (GLUCOPHAGE) 500 mg tablet rosuvastatin (CRESTOR) 20 mg tablet zolpidem (AMBIEN) 10 mg tablet Current Facility-Administered Medications Medication Dose Route Frequency Provider Last Rate Last Admin ??? acetaminophen (TYLENOL) tablet 650 mg 650 mg oral Q4H PRN Yani Mcnair MD 650 mg at 05/28/21 2100 ??? ALPRAZolam (XANAX) tablet 0.5 mg 0.5 mg oral BID PRN Lennox Fautsin MD 0.5 mg at 305 ??? aspirin tablet 325 mg 325 mg oral Daily Shaylee Martines NP 325 mg at 05/28/21 08 ??? bisacodyl EC (DULCOLAX EC) tablet 10 mg 10 mg oral BID PRN Yani Mcnair MD ??? calcium carbonate (TUMS) chewable tablet 1,000 mg 400 mg of elemental calcium feeding tube BID Yani Mcnair MD 1,000 mg at 05/28/21 2100 ??? carvediloL (COREG) tablet 25 mg 25 mg oral BID with meals (bkfst, dinner) Diana Mcclure NP 25 mg at 05/28/21 173 ??? dextrose (D10W) 10% bolus 250 mL 250 mL intravenous Q15 Min PRN Yani Mcnair MD ??? docusate sodium (COLACE) capsule 100 mg 100 mg oral BID Yani Mcnair MD 100 mg at 05/28/212099 ??? enoxaparin (LOVENOX) syringe 30 mg 30 mg subcutaneous Daily-2099 Lennox Faustin MD 30 mg at 05/28/212101 ??? FLUoxetine (PROzac) capsule 40 mg 40 mg oral Daily Hina Patel NP 40 mg at 05/28/21 0809 ??? [Held by Provider] furosemide (LASIX) tablet 40 mg 40 mg feeding tube Daily Yani Mcnair MD ??? labetaloL (NORMODYNE,TRANDATE) injection 10 mg 10 mg intravenous Q15 Min PRN Shaylee Martines NP Or ??? hydrALAZINE (APRESOLINE) injection 10 mg 10 mg intravenous Q15 Min PRN Shaylee Martines NP ??? insulin lispro (HumaLOG, ADMELOG) 100 unit/mL injection 2-10 Units 2-10 Units subcutaneous QID (AC & HS) Shaylee Martines NP 2 Units at 05/28/212114 ??? levothyroxine (SYNTHROID) tablet 50 mcg 50 mcg oral Daily - 0600 Mahogany Burgos NP 50 mcg at 05/29/21 0649 ??? ondansetron (ZOFRAN) injection 4 mg 4 mg intravenous Q6H PRN Yani Mcnair MD ??? oxyCODONE (ROXICODONE) tablet 5 mg 5 mg oral Q4H PRN Shaylee Martines NP 5 mg at 05/26/21 1647 ??? rosuvastatin (CRESTOR) tablet 20 mg 20 mg oral Nightly Yani Mcnair MD 20 mg at05/28/21 2100 ??? senna (SENOKOT) tablet 1 tablet 1 tablet oral BID Yani Mcnair MD 1 tablet at 05/28/21 2100 ??? sodium chloride 0.9% flush 0.5-20 mL 0.5-20 mL intra-catheter Q8H MISHA Yani Mcnair MD 10 mL at 05/28/21 210 ??? sodium chloride 0.9% flush 0.5-20 mL 0.5-20 mL intra-catheter PRN Yani Mcnair MD ??? tamsulosin (FLOMAX) extended release capsule 0.4 mg 0.4 mg oral Daily with dinner Mahogany Burgos NP 0.4 mg at 05/28/21 1732 Allergies: Allergies Allergen Reactions ??? Amlodipine Shortness of breath ??? Prasanth Inhibitors Cough Reaction: COUGH, ??? Citalopram ??? Lisinopril Social History Social History Socioeconomic History ??? Marital status: Tobacco Use ??? Smoking status: Never Smoker ??? Smokeless tobacco: Never Used Substance and Sexual Activity ??? Alcohol use: Yes Comment: 1/mo ??? Drug use: Never ??? Sexual activity: Defer Family History Family History Problem Relation Age of Onset ??? Sudden Cardiac Mother Family history of sudden cardiac - (Added by Conv) ??? Heart failure Mother Family history of heart failure - (Added by Conv) ??? Heart attack Father Family history of heart attack - (Added by TW Conv) ??? Diabetes Father Family history of diabetes mellitus - (Added by Conv) ??? Hypertension Father Family hx of hypertension - (Added by TW Conv) ??? Diabetes Son Family history of diabetes mellitus - (Added by TW Conv) ??? Anesthesia problems Neg Hx Review of Systems All symptoms negative except as per HPI. Objective OBJECTIVE Vitals: Arrival Vitals Temp 05/25/212229 36.7 ??C (98.1 ??F) Pulse 05/25/211952 86 Resp 05/25/211952 20 BP 05/25/211952 (!) 141/112 SpO2 05/25/211952 100 % Temp src 05/25/212229 Tympanic Heart Rate Source 05/25/212049 Monitor Patient Position 05/25/212229 Lying BP Location 05/25/212229 Left arm FiO2 (%) 05/25/212215 40 % 24hr Min/Max: Temp Min: 36.4 ??C (97.5 ??F) Max: 36.9 ??C (98.4 ??F) Pulse Min: 58 Max: 118 BP Min: 126/111 Max: 167/105 Resp Min: 12 Max: 22 SpO2 Min: 95 % Max: 100 % Most Recent : Vitals: 05/29/21 0730 BP: (!) 164/115 Pulse: 98 Resp: 17 Temp: 36.5 ??C (97.7 ??F) SpO2: 96% Intake/Output Summary (Last 24 hours) at 05/29/2021 0734 Last data filed at 05/28/2021 1230 Gross per 24 hour Intake 550 ml Output 650 ml Net -100 ml Physical Exam GENERAL: appears stated age, sitting up comfortably in chair HEENT: NC/AT, MMM CV: regular rate and rhythm LUNGS: no increased work of breathing ABDOMEN: soft, nontender, nondistended EXTREMITIES: warm and well-perfused; wearing CAM boot on LLE with significant pain with movement ofLLE SKIN: warm and dry MENTAL STATUS: Awake, alert, fully oriented x4 (to person, place, date, and reason for presentation). Some difficulty remembering parts of history and presidents (missed Trump), but could do days of week backwards. LANGUAGE: Intact to conversation. Follows simple verbal commands but difficulty with two step/crossbody commands (needed to correct herself). Repetition intact. Naming intact CRANIAL NERVES: Pupils equal, round, and reactive to light (4mm->2mm). Visual lopes intact to confrontational testing. Extraocular motions intact without nystagmus. Facial sensation intact to light touch bilaterally. Mild L NLFF with normal activation bilaterally. Hearing intact bilaterally. Palate raises symmetrically. No dysphonia. SCMs and shoulder shrug intact and symmetric. Tongue extends midline. MOTOR: 5/5 throughout except 4/5 in distal LLE at ankle due to pain from L ankle fracture. No pronator drift. Mild intention tremor bilaterally SENSORY: Sensation intact throughout to light touch throughout. No extinction or neglect REFLEXES: 2+ and symmetric throughout. No spreading. Toes downgoing bilaterally. COORDINATION: No dysmetria on [id number] bilaterally. Mild intention tremor bilaterally GAIT: Did not assess Lab/Radiology/Diagnostic Review: Hematology Lab History Some values may be hidden. Unless noted otherwise, only the newest values recorded on each date aredisplayed. Labs - Hematology Latest Ref Range 05/25/21 05/26/21 05/27/21 05/29/21 WBC 3.8 - 9.9 K/cumm 8.7 7.1 4.5 5.0 Total Hb, POC 11.9 - 15.5 g/dL 8.2 (A) 8.2 (A) 7.8 (A) 8.8 (A) Hct 35.6 - 45.5 % 27.0 (A) 26.8 (A) 25.0 (A) 28.3 (A) Plt 150 - 400 K/cumm 257 276 243 259 Platelets Neutrophil abs 1.7 - 6.5 K/cumm 7.9 (A) 2.7 2.7 Lymphocytes, abs 0.8 - 3.3 K/cumm 1.2 1.3 1.8 SCRIBED Hematocrit SCRIBED Hemoglobin SCRIBED WBC SCRIBED RBC SCRIBED Neutrophils Abs SCRIBED Platelets Some values recorded on this date have been omitted. Some abnormal values recorded on this date have been omitted. (A) Abnormal value Chem/LFT Lab History Some values may be hidden. Unless noted otherwise, only the newest values recorded on each date aredisplayed. Labs-Chem/LFT Latest Ref Range 05/25/21 05/26/21 05/27/21 05/29/21 Sodium 135 - 145 mmol/L 137 136 138 138 Potassium Lvl Creatinine 0.60 - 1.10 mg/dL 0.99 0.91 0.71 0.70 Bilirubin, total 0.1 - 1.2 mg/dL 0.4 0.4 AST 10 - 45 Units/L 22 16 ALT 7 - 45 Units/L 25 27 SCRIBED Alkaline Phosphatase SCRIBED Alanine Transaminase (ALT) SCRIBED Potassium SCRIBED Bilirubin SCRIBED Creatinine CrCl- Actual Body Weight (Cockcroft-Gault) 53.2 57.9 74.2 75.3 Some values recorded on this date have been omitted. Some abnormal values recorded on this date have been omitted. No results found for this or any previous visit. Assessment/Plan ASSESSMENT AND PLAN Prema Pearce is a 81 y.o. right-handed female with a past medical history significant for Afib (eliquis held x5 days for lithotropsy for kidney stone), moderate , HTN, T2DM, HFpEF, prior PE (2019), AYAD on CPAP, hypothyroidism, and anxiety who presented on 05/25 w/LFD+dysarthria (intermittent-> fixed 05/25 1500). LKN 3 PM. Initial NIHSS 6 (LFD, dysarthria, L superior quadrantonopia, L sensory, L extinction). hCT w/chronic L parieto-occipital infarct. CTA demonstrated R superior division M2 occlusion (core 0, Tmax 33). NO GO for tPA as she was OOW. GO for thrombectomy with TICI 3 reperfusion after two passes. Impression/etiology: Patient had R MCA stroke with initial deficits of LFD and dysarthria. She is now s/p MT and exam is now only notable for mild L NLFF, and some pain-limited weakness in LLE (not due to stroke, due to L ankle fracture), but otherwise unremarkable. The etiology of her stroke is likely cardioembolic in s/o Afib and holding AC for her kidney stone lithotropsy. #R MCA Stroke Workup - LDL: 15, A1c: 6.2, EKG: A fib w/RVR - CT: chronic L parieto-occipital infarct - CTA: L M2 occlusion. B/l ICA < 30% Plan - Interventions - tPA: no-go, thrombectomy: GO with TICI 3 after 2 passes - 2?? prevention: Aspirin 325 while off AC, cont home crestor 20 - start AC: recommend restarting AC today (eliquis 5mg BID) 4 days after stroke (hCT with small stroke 05/28) - BP goal: normotension - Loop: no (known Afib) #Afib: - home meds: eliquis (held for 1 wk for lithotropsy), coreg 25 BID - cont coreg 25 BID for rate control, AC as above #L ankle fracture: - ortho c/s: CAM boot, WBAT w/PT/OT - Repeat XR after PT/OT work with her: stable - need weight bearing XR today - ortho will arrange f/u: 06/[address] Vora #Kidney stones s/p lithotropsy: - monitor for pain, APAP/oxy 5 PRN - flomax 0.4 nightly #Moderate /HFpEF: - Last EF 66% with mod 08/2020 - hold home lasix 40, coreg 25 BID #T2DM - hold home metformin 500 BID, glipizide 10 BID - A1C 6.2 - SSI here #HTN - coreg 25 BID - can restart lasix 40mg today #HLD - cont home crestor 20 #Anemia: - Hgb 9 -> 8.2 - normocytic, recent baseline 9-10 per Care Everywhere - F/u iron studies - monitor w/starting AC #Positive UA: - UCx: clinically insignificant growth, no sx - no Abx (did get Abx at home post-procedure) #AYAD on CPAP: - nightly CPAP #hypothyroidism: - cont home synthroid 50 mcg daily #anxiety: - xanax 0.5 BID PRN # Diet: regular # DVT prophylaxis: lovenox # Lines: PIV # Lucio: none # Dispo: likely home pending PT/OT Jazmyn Miranda MD PhD Neurology PGY2 Stroke phone on-call: [phone] Cosigned by David Mitchell MD at 05/29/2021 4:59 PM CDT Associated attestation - David Mitchell MD - 05/29/2021 4:59 PM CDT I have seen and examined the patient on 05/29/21. I agree with the findings and plan of care as discussed with the resident/fellow.. * Tu Frankel - 05/28/2021 12:59 PM CDT [facility] 05.28.21 1150 05/28/21 1200 Time Spent Start Time 1145 Stop Time 1155 Time Calculation (min) 10 min Patient Spiritual Assessment Spirituality Assessed Focus of Care Clinical Encounter Type Visited With Patient Response Type Routine visit Routine Visit Follow-up Reason for visit Support Outcomes and Progress Demonstrating care and respect Achieved Journeying with someone in the grief process Achieved Interventions Interventions Offer emotional support;Prayer * Lucila Faustin, PT - 05/28/2021 10:03 AM CDT Physical Therapy Physical Therapy Initial Assessment NOTE: This is a summary note for the espitia assessments completed during the evaluation session. For full details, review chart review for all flowsheets documented on by this physical therapist on thisdate. Vital signs documented in vital signs flowsheet. Assessment Assessment Problem List: Gait deviations, Decreased strength, Decreased range of motion, Decreased endurance, Impaired balance, Decreased mobility Problem List Comments: Pt with right M2 occlusion s/p MT w/ TICI 3 after two passes, intermittent Lfacial droop and dysarthria presents with deficits in all functional mobility due to impairments instrength and balance. These deficits prevent full participation in all home and community activities. Plan Plan Plan : If this is the last note, consider this the discharge summary, Plan of care initiated PT Recommendation and Plan Recommendation/Plan PT Recommendation/Plan: Home with intermittent assist, Home Health PT PT Frequency: Follow-up visit only Treatment/Interventions: Balance Training, Bed mobility, Functional activity, Functional transfer training, Gait training, Neuromuscular re-education, Stair training, Strengthening, Therapeutic activity, Therapeutic exercise PT Equipment Recommended: Wheeled walker PT - Next Appointment: 05/29/21 PT Evaluation Complete: Yes General Information General Chart Reviewed: Yes Session Type: Evaluation PT Received On: 05/28/21 Safe Environment: Arm Band Checked, Call Light within Reach, Chair Alarm placed and activated, Session Completed Bedside, Patient found sitting in Chair, Bed in Lowest Position with Wheels locked (Ptin sitting at end of session.) Subjective: Agreeable to Therapy Family/Caregiver Present: No Physical Therapy-Patient Goal: Pt wants to be able to go home. Prior Function Prior Function Level of [place]: Independent functional transfers, Independent with ambulation Lives With: Alone Receives Help From: Family, Neighbor (sack department supervisor) Fall within the last 6 months: Yes Fall within the last 6 months comment: 1 fall leading to this admission. Home Living Home Living Type of Home: House Home Layout: One level Home Access: Stairs to enter with rails Entrance Stairs-Rails: Both Entrance Stairs-Number of Steps: 3 Home Mobility Equipment: None Precautions Precautions Precautions: Fall risk Weight Bearing Restrictions: Yes LLE Weight Bearing: As tolerated Braces/Orthoses: CAM boot Pain Pain Assessment Pain Assessment: No/denies pain Cognition Cognition Arousal/Alertness: Alert, Appropriate responses to stimuli Orientation : Oriented X4 (person, place, time, situation) Following Commands: Follows all commands and directions without difficulty 6 Clicks Basic Mobility - 6 Click How much difficulty does the patient have: Turning over in bed: None How much difficulty does the patient currently have: Sitting down and standing up from a chair witharms?: None How much difficulty does the patient have: Moving from lying on back to sitting on the side of the bed?: None How much difficulty does the patient have: Moving to and from a bed to a chair including wheelchair?: None How much help does the patient currently need: Walk in hospital room?: A little How much help from another person does the patient currently need: Climbing 3-5 steps with a railing?: A little Total 6 Click Score (range 6-24): 22 Score Interpretation: 22 Bed Mobility Bed Mobility Bed Mobility: No Transfers Transfers Transfer: Yes Transfer 1 Transfer From 1: Sit Transfer Type 1: To and from Transfer to 1: Stand Technique 1: Sit to stand, Stand to sit Transfer Device 1: Wheeled walker Transfer Level of Assistance 1: Distant supervision Trials/Comments 1: cues for safety Balance Static Sitting Balance Static Sitting-Balance Support: No upper extremity supported, Feet supported Static Sitting-Sitting Surface: Chair Static Sitting-Level of Assistance: Independent Static Standing Balance Static Standing-Balance Support: Bilateral upper extremity supported Static Standing-Standing Surface: Floor Static Standing-Level of Assistance: Distant supervision Ambulation Ambulation Ambulation: Yes New Weight Bearing Status: WBAT in CAM boot Ambulation 1 Distance (ft) 1: 100 Surface 1: Level tile Device 1: Wheeled walker Assistance 1: Distant supervision Gait: Requires verbal cues to 1: Pace activity Quality of Gait 1: decreased kaleb Ambulation Comments 1: Gait speed: 31 sec for 10 meters Stairs Stairs Stairs: No Stair Comments: Pt refused to attempt on this date. Curbs RLE Assessment RLE Assessment RLE Assessment: Within Functional Limits LLE Assessment LLE Assessment LLE Assessment: Within Functional Limits Equipment Used Equipment Use Equipment Use Comments: A gait belt was used for all OOB activity. Other Comments PT Goals Multi-Disciplinary Problems (from Physical Therapy) Active Problems Problem: Mobility Start Date: 05/28/21 Goal Start Date Expected End Date End Date STG - Patient will ambulate 150ft with WW with mod I 05/28/21 06/07/21 -- Goal Start Date Expected End Date End Date STG - Patient will ascend and descend 3 stairs with the following level of assist: with sup with HR05/28/21 06/07/21 -- * Luiza Castellanos, OT - 05/28/2021 8:18 AM CDT Occupational Therapy Occupational Therapy Initial Assessment NOTE:This is a summary note for the espitia assessments completed during the evaluation session. For full details, review chart review for all flowsheets documented on by this Occupational Therapist on this date. Vital signs documented in vital signs flowsheet. Assessment Assessment Problem List: Decreased cognition, Decreased balance, Decreased functional mobility, Decreased ADL independence, Decreased IADL independence, Pain Plan Plan Plan: If this is the last note, consider this the discharge summary, Plan of care initiated OT Recommendation and Plan Recommendation/Plan OT Recommendation: Home Health OT, Home with family OT Recommendation/Plan Comments: spv for safety during initial recovery for functional mobility andADLs. Assist for IADLs OT Frequency: 3-5x/wk Treatment/Interventions: ADL/IADL retraining, Bed mobility, Cognitive retraining, Compensatory technique education, Balance Training, Functional activity, Functional mobility training, Functional transfer training, Parent/caregiver training and education, Positioning, Strengthening, Therapeutic activity, Therapeutic exercise, Transfer training OT Equipment Recommended: Transfer tub bench OT - Next Appointment: 05/29/21 OT Evaluation Complete: Yes General Information General Chart Reviewed: Yes Session Type: Evaluation OT Received On: 05/28/21 Safe Environment: Arm Band Checked, Chair Alarm placed and activated, Call Light within Reach, Notified RN, Patient found in Supine, Overbed Table within Reach, Bed in Lowest Position with Wheels locked (pt left seated in recliner in NAD) Subjective: Agreeable to Therapy Family/Caregiver Present: No Occupational Therapy-Patient Goal: pt was agreeable to OT stated short term goals Precautions Precautions Precautions: Fall risk LLE Weight Bearing: As tolerated Braces/Orthoses: CAM boot Home Living Home Living Type of Home: House Home Layout: One level Home Access: (3 CLAUDIO) Bathroom Shower/Tub: Tub/shower unit Bathroom Equipment: Grab bars in shower/tub, Hand-held shower Home Mobility Equipment: None Prior Function Prior Function Level of [place]: Independent with ADLs, Independent with ambulation, Independent with homemaking with ambulation Lives With: Alone Receives Help From: Family (multimedia manager assist) Driving: No Fall within the last 6 months: Yes Fall within the last 6 months comment: (1 fall prior to this admission, however denied additional falls) Activities of Daily Living Grooming Grooming: Where assessed: Standing at sink Grooming: Level of assistance: Standby Assist Grooming: Assistance with: (spv for safety with balance) LE Dressing LE Dressing: Where assessed: Chair LE Dressing: Level of assistance: Minimum Assist LE Dressing: Assistance with: Don/doff L sock Toileting Toileting: Where assessed: Toilet Toileting: Level of assistance: Minimum Assist Toileting: Assistance with: (set up for task; min for force production for toilet transfer) Toilet Transfers Toilet Transfer From: Bed Toilet Transfer Type: To and from Toilet Transfer to: Standard toilet Toilet Transfer Technique: Ambulating Toilet Transfer: Equipment: Wheeled walker Toilet Transfers: Minimal assistance Toilet Transfers Comments: A for force production from low surface Pain Pain Assessment Pain Assessment: 0-10 Pain Score: 7 (with movement, denied pain at rest) Pain Location: Ankle Pain Orientation: Left Pain Interventions: Repositioned, RN Notified Cognition Cognition Overall Cognitive Status: Impaired Arousal/Alertness: Appropriate responses to stimuli, Alert Attention Span: Controlled environment, Difficulty dividing attention Memory: (recalls 3/5 items after 2 minute delay) Orientation : Oriented X4 (person, place, time, situation) Following Commands: Follows all commands and directions without difficulty Safety Judgment: Good awareness of safety precautions Compliance/Behavior: Easy to engage Short Blessed Test What year is it now?: Correct What month is it now?: Correct Repeat this name and address after me: Miguel Carrasquillo [address] [place] [address] Without looking at the clock, tell me what time it is: Correct-within one hour Count aloud backwards from 20-1: 0 Errors Say the months of the year backwards in reverse order: 0 Errors Repeat the name and address I asked you to remember: 2 Errors Short Blessed Total Score: 4 Short Blessed Comments: WFL Trails A & B ([place] Making Test) Patient completed Trails B Verbal in (seconds): 78 Trails B Verbal # of errors: 3 Trails B Verbal score evaluation: Impaired 6 Clicks Daily Activity - 6 Clicks Putting on and taking off regular lower body clothing: A Little Bathing: A little Toileting: A little Putting on and taking off upper body clothing: None Personal Grooming: A little Eating Meals: None Total Score (range 6-24): 20 Score Interpretation: 20 Balance Static Sitting Balance Static Sitting-Balance Support: No upper extremity supported Static Sitting-Sitting Surface: Bed Static Sitting-Level of Assistance: Independent Static Standing Balance Static Standing-Balance Support: Unilateral upper extremity supported Static Standing-Level of Assistance: Close supervision Transfers Transfers Transfer: Yes Transfer 1 Transfer From 1: Sit Transfer Type 1: To and from Transfer to 1: Stand Technique 1: Sit to stand, Stand to sit Transfer Device 1: Wheeled walker Transfer Level of Assistance 1: Standby Assist, Minimum Assist Trials/Comments 1: spv for safety with balance from standard surface (ie: bed/chair), min A for force production from low surface (toilet) Transfers 2 Trials/Comments 2: pt completed funtctional mobility with ww with spv for safety with balance Bed Mobility Bed Mobility 1 Bed Mobility From 1: Supine Bed Mobility Type 1: To Bed Mobility to 1: Short sit, Edge of bed Level of Assistance 1: Minimum Assist Bed Mobility Comments 1: A to maneuver LLE RUE Assessment RUE Assessment RUE Assessment: Within Functional Limits LUE Assessment LUE Assessment LUE Assessment: Within Functional Limits Other Comments pt discussed multiple negative life events (including the recent deaths of multiple family members). Pt was tearful, however able to identify positive supports in her life. Pt reported some recent impact of low mood (pt attributed to events) on ADL and IADL engagement. I just don't feel like cooking anymore. I used to love baking. Medical team was notified of concerns related to patient's mental health. Pt was educated on the benefits of re-engagement in preferred activities and would benefitfrom further OT to address decreased engagement. Pt was educated on the importance of spv for safety with functional mobility and ADLs as well as IADLs durign initial recovery. Pt verbalized understanding. OT Goals Multi-Disciplinary Problems (from Occupational Therapy) Active Problems Problem: Dressings Lower Extremities Start Date: 05/28/21 Goal Start Date Expected End Date End Date STG - Patient to complete lower body dressing with spv 05/28/21 06/04/21 -- Problem: Transfers Start Date: 05/28/21 Goal Start Date Expected End Date End Date STG - Patient will perform toilet transfer with spv 05/28/21 06/04/21 -- Problem: OT Misc Start Date: 05/28/21 Goal Start Date Expected End Date End Date OT LTG - Pt will complete ADLs with modified independence 05/28/21 07/05/21 -- Goal Start Date Expected End Date End Date OT STG - Pt will complete alternating attention task for >2 minutes with less than 2 errors in preparation for increased independence with IADLs 05/28/21 06/04/21 -- * Jazmyn Miranda MD PhD - 05/28/2021 4:25 AM CDT Images from the original note were not included. STROKE DAILY PROGRESS NOTE Date: 05/27/21 CARE TEAM Patient: Prema Pearce Primary Care Physician: Ryann Galdamez PA Room: [id number] Subjective SUBJECTIVE Prema Pearce is a 81 y.o. right-handed female with a past medical history significant for Afib (eliquis held x5 days for lithotropsy for kidney stone), moderate , HTN, T2DM, HFpEF, prior PE (2019), AYAD on CPAP, hypothyroidism, and anxiety who presented on 05/25 w/LFD+dysarthria (intermittent-> fixed 05/25 1500). LKN 05/24 PM. Initial NIHSS 6 (LFD, dysarthria, L superior quadrantonopia, L sensory, L extinction). hCT w/chronic L parieto-occipital infarct. CTA demonstrated R superior division M2 occlusion (core 0, Tmax 33). NO GO for tPA as she was OOW. GO for thrombectomy with TICI 3 reperfusion after two passes. HISTORY OF PRESENT ILLNESS: History obtained via patient (somewhat reliable), brother (at bedside), and chart review. At neurological baseline, patient has no deficits, lives alone, independent of ADLs/iADLs, does not use assistive devices. Patient states she underwent lithotropsy for kidney stones on 05/21 or 05/22 and had held her eliquis two days prior to that. She was then told to continue holding eliquis until at least 05/27. Her back pain from her kidney stones improved after the procedure, but she was taking rest for the next few days after. She states she went to bed without any symptoms on 05/24 (corroborated by her brother). She then said when she woke up 05/25, she noticed drooling from the left side of her face. She then knocked over a glass of water and tried to get up but felt weak on the left side, and fell. She had a difficult time getting up and injured her left ankle she believes at that time. Her family spoke with her later 05/25 (~1500) and were concerned by her symptoms so her granddaughter who is an EMT for [employer] came over to evaluate her. They also noticed she was slurring her speech. Due to concern for stroke, they called EMS. Upon arrival to the ED, code stroke was activated . NIHSS of 6 for LFD, dysarthria, L superior quadrantanopia, L sensory deficits, and L extinction. Initial HCT w/ chronic L parieto-occipital infarct, no bleed. CTA demonstrated Right M2 branch occlusion, core 0, Tmax 33, in the R frontal lobe. She was a NO GO for tPA due to OOW. GO for thrombectomy (mRS 0) with TICI 3 reperfusion after two passeswith stent retriever. The clot was reportedly very fibrous and somewhat difficult to retrieve. The procedure was complicated by AFib with RVR (max HR 130s); given this in conjunction with concern fordevelopment of vasospasm, she received 12.5 mg total of intra-arterial Verapamil. She was intubatedfor the procedure and sedated with Propofol and required initiation of Phenylephrine gtt. She was then admitted to the NNICU intubated and sedated on 30 of Propofol with Rajendra at 1.2. NNICU Course She was quickly weaned off sedation and pressors and was extubated without difficulty. She was weaned to 6L via NC but further weaned to RA on the afternoon of 05/26. She was started on ASA 325 and continued on home crestor 20, AC held. Her LDL was 15 and Hgb A1C was 6.2. She had Afib with RVR to 130s and was started on home coreg which was increased to 12.5 BID with improvement in HRs to 70-90s. BP 100-140/80-110s. She passed for a regular diet. She complained of L ankle pain and XR showed minimally displaced fracture of L lateral malleolus. Ortho consulted, repeat scan showed mild instability on stress view, and they recommended non-op management w/CAM boot, WBAT w/PT/OT (with repeat XR after working with PT/OT). She was treated for pain with tylenol and oxy 5 PRN. Her UA had 2+ blood, 2_ LE, and WBC 11-20, but UCx had insignificant growth and patient not complaining of symptoms, so not started on Abx (per pt, she had been taking Abx after her lithotropsy procedure). She was stable for transfer to floor 05/27. Past Medical History: 1. AFib (on Eliquis) 2. Moderate aortic stenosis 3. HTN 4. T2DM (A1c 6.2) 5. HFpEF 6. Prior PE (05/2019) 7. AYAD on CPAP 8. Hypothyroidism 9. Anxiety 10. Nephrolithiasis Past Surgical History: 1. Breast lumpectomy 2. Cholecystectomy 3. R total knee replacement 4. Hand surgery with plate and screws 5. Hysterectomy 6. Incision and drainage, L femur Social History: Patient lives alone in [place], [place]. Independent all ADLs/IADLs, no assitive devices. . Lost son to COVID complications in April 2021. Never smoker. Social alcohol use (average 1x/month). No recreational drugs Family History: 1. Sudden cardiac - mother 2. Heart failure - mother 3. [place] - father 4. Diabetes - father, son 5. HTN - father Allergies: 1. Amlodipine - SOB 2. ACEi - cough 3. Citalopram - unknown reaction Home Medications: Alprazolam 0.5 mg TID prn ASA 81 mg daily Calcium carbonate 600 mg BID Coreg 25 mg BID Eliquis 5 mg BID Lasix 40 mg daily Glipizide 10 mg BID Synthroid 50 mcg daily Metformin 500 mg BID Rosuvastatin 20 mg daily Zolpidem 10 mg qhs prn Past Medical/Surgical History Past Medical History: Diagnosis Date ??? Adrenal [...] Pulmonary embolism (HCC) ??? Sleep apnea ??? Zenker's diverticulum Past Surgical History: Procedure Laterality Date ??? BREAST LUMPECTOMY ??? CHOLECYSTECTOMY ??? HAND SURGERY Left plate & screws ??? HYSTERECTOMY ??? INCISION AND DRAINAGE FEMUR Left 05/22/2019 Home Medications HOME MEDICATIONS : acetaminophen (TYLENOL) 500 mg tablet ALPRAZolam (XANAX) 0.5 mg tablet aspirin 81 mg enteric coated tablet CALCIUM CARBONATE ORAL carvediloL (COREG) 25 mg tablet Eliquis 5 mg tablet furosemide (LASIX) 40 mg tablet glipiZIDE (GLUCOTROL) 10 mg tablet levothyroxine (SYNTHROID) 50 mcg tablet metFORMIN (GLUCOPHAGE) 500 mg tablet rosuvastatin (CRESTOR) 20 mg tablet zolpidem (AMBIEN) 10 mg tablet Current Facility-Administered Medications Medication Dose Route Frequency Provider Last Rate Last Admin ??? acetaminophen (TYLENOL) tablet 650 mg 650 mg oral Q4H PRN Yani Mcnair MD 650 mg at 05/27/21 1554 ??? ALPRAZolam (XANAX) tablet 0.5 mg 0.5 mg oral BID PRN Lennox Faustin MD 0.5 mg at 121 ??? aspirin tablet 325 mg 325 mg oral Daily Shaylee Martines NP 325 mg at 05/27/21 0804 ??? bisacodyl EC (DULCOLAX EC) tablet 10 mg 10 mg oral BID PRN Yani Mcnair MD ??? calcium carbonate (TUMS) chewable tablet 1,000 mg 400 mg of elemental calcium feeding tube BID Yani Mcnair MD 1,000 mg at 05/27/21 0804 ??? carvediloL (COREG) tablet 12.5 mg 12.5 mg oral BID with meals (bkfst, dinner) Shaylee Martines NP 12.5 mg at 05/27/21 1745 ??? dextrose (D10W) 10% bolus 250 mL 250 mL intravenous Q15 Min PRN Yani Mcnair MD ??? docusate sodium (COLACE) capsule 100 mg 100 mg oral BID Yani Mcnair MD 100 mg at 05/27/21 0804 ??? enoxaparin (LOVENOX) syringe 30 mg 30 mg subcutaneous Daily-2100 Lennox Faustin MD 30 mg at 05/26/212120 ??? FLUoxetine (PROzac) capsule 40 mg 40 mg oral Daily Hina Patel NP ??? [Held by Provider] furosemide (LASIX) tablet 40 mg 40 mg feeding tube Daily Yani Mcnair MD ??? labetaloL (NORMODYNE,TRANDATE) injection 10 mg 10 mg intravenous Q15 Min PRN Shaylee Martines NP Or ??? hydrALAZINE (APRESOLINE) injection 10 mg 10 mg intravenous Q15 Min PRN Shaylee Martines NP ??? insulin lispro (HumaLOG, ADMELOG) 100 unit/mL injection 2-10 Units 2-10 Units subcutaneous QID (AC & HS) Shaylee Martines NP 2 Units at 05/27/21 1144 ??? [START ON 05/28/2021] levothyroxine (SYNTHROID) tablet 50 mcg 50 mcg oral Daily - 0600 Mahogany Burgos NP ??? ondansetron (ZOFRAN) injection 4 mg 4 mg intravenous Q6H PRN Yani Mcnair MD ??? oxyCODONE (ROXICODONE) tablet 5 mg 5 mg oral Q4H PRN Shaylee Martines NP 5 mg at 05/26/21 1647 ??? rosuvastatin (CRESTOR) tablet 20 mg 20 mg oral Nightly Yani Mcnair MD 20 mg at05/26/212120 ??? senna (SENOKOT) tablet 1 tablet 1 tablet oral BID Yani Mcnair MD 1 tablet at 05/27/21 0804 ??? sodium chloride 0.9% flush 0.5-20 mL 0.5-20 mL intra-catheter Q8H MISHA Yani Mcnair MD 10 mL at 05/26/212121 ??? sodium chloride 0.9% flush 0.5-20 mL 0.5-20 mL intra-catheter PRN Yani Mcnair MD ??? tamsulosin (FLOMAX) extended release capsule 0.4 mg 0.4 mg oral Daily with dinner Mahogany Burgos NP 0.4 mg at 05/27/21 1745 Allergies: Allergies Allergen Reactions ??? Amlodipine Shortness of breath ??? Prasanth Inhibitors Cough Reaction: COUGH, ??? Citalopram ??? Lisinopril Social History Social History Socioeconomic History ??? Marital status: Tobacco Use ??? Smoking status: Never Smoker ??? Smokeless tobacco: Never Used Substance and Sexual Activity ??? Alcohol use: Yes Comment: 1/mo ??? Drug use: Never ??? Sexual activity: Defer Family History Family History Problem Relation Age of Onset [...] Anesthesia problems Neg Hx Review of Systems All symptoms negative except as per HPI. Objective OBJECTIVE Vitals: Arrival Vitals Temp 05/25/21 2230 36.7 ??C (98.1 ??F) Pulse 05/25/211952 86 Resp 05/25/211952 20 BP 05/25/211952 (!) 141/112 SpO2 05/25/211952 100 % Temp src 05/25/212229 Tympanic Heart Rate Source 05/25/212049 Monitor Patient Position 05/25/212229 Lying BP Location 05/25/212229 Left arm FiO2 (%) 05/25/212215 40 % 24hr Min/Max: Temp Min: 36.4 ??C (97.5 ??F) Max: 36.8 ??C (98.2 ??F) Pulse Min: 71 Max: 129 BP Min: 106/71 Max: 147/83 Resp Min: 10 Max: 20 SpO2 Min: 91 % Max: 100 % Most Recent : Vitals: 05/27/21 1602 BP: 109/56 Pulse: 100 Resp: 20 Temp: SpO2: 97% Intake/Output Summary (Last 24 hours) at 05/27/2021 1759 Last data filed at 05/27/2021 1300 Gross per 24 hour Intake 740 ml Output 1000 ml Net -260 ml Physical Exam GENERAL: appears stated age, sitting up comfortably in chair HEENT: NC/AT, MMM CV: regular rate and rhythm LUNGS: no increased work of breathing ABDOMEN: soft, nontender, nondistended EXTREMITIES: warm and well-perfused; wearing CAM boot on LLE with significant pain with movement ofLLE SKIN: warm and dry MENTAL STATUS: Awake, alert, fully oriented x4 (to person, place, date, and reason for presentation). Some difficulty remembering parts of history and presidents (missed Trump), but could do days of week backwards. LANGUAGE: Intact to conversation. Follows simple verbal commands but difficulty with two step/crossbody commands (needed to correct herself). Repetition intact. Naming intact CRANIAL NERVES: Pupils equal, round, and reactive to light (4mm->2mm). Visual lopes intact to confrontational testing. Extraocular motions intact without nystagmus. Facial sensation intact to light touch bilaterally. Mild L NLFF with normal activation bilaterally. Hearing intact bilaterally. Palate raises symmetrically. No dysphonia. SCMs and shoulder shrug intact and symmetric. Tongue extends midline. MOTOR: 5/5 throughout except 4/5 in distal LLE at ankle due to pain from L ankle fracture. No pronator drift. Mild intention tremor bilaterally SENSORY: Sensation intact throughout to light touch throughout. No extinction or neglect REFLEXES: 2+ and symmetric throughout. No spreading. Toes downgoing bilaterally. COORDINATION: No dysmetria on [id number] bilaterally. Mild intention tremor bilaterally GAIT: Did not assess Lab/Radiology/Diagnostic Review: Hematology Lab History Some values may be hidden. Unless noted otherwise, only the newest values recorded on each date aredisplayed. Labs - Hematology Latest Ref Range 03/12/21 03/21/21 05/25/21 05/26/21 WBC 3.8 - 9.9 K/cumm 8.8 8.7 7.1 Total Hb, POC 11.9 - 15.5 g/dL 11.4 (A) 8.2 (A) 8.2 (A) Hct 35.6 - 45.5 % 36.0 27.0 (A) 26.8 (A) Plt 150 - 400 K/cumm 257 276 Platelets 140 - 400 Thousand/uL 333 Neutrophil abs 1.7 - 6.5 K/cumm 7.9 (A) Lymphocytes, abs 0.8 - 3.3 K/cumm 2,182 1.2 SCRIBED Hematocrit 37 - 47 % 36.7 (A) SCRIBED Hemoglobin 12 - 15 g/dL 11.7 (A) SCRIBED WBC 4.5 - 10 k/cumm 4.3 (A) SCRIBED RBC 4.2 - 5.4 m/cumm 4.25 SCRIBED Neutrophils Abs 1.3 - 6.7 k/cumm 3.5 SCRIBED Platelets 150 - 375 k/cumm 272 Some values recorded on this date have been omitted. Some abnormal values recorded on this date have been omitted. (A) Abnormal value Chem/LFT Lab History Some values may be hidden. Unless noted otherwise, only the newest values recorded on each date aredisplayed. Labs-Chem/LFT Latest Ref Range 03/12/21 03/21/21 05/25/21 05/26/21 Sodium 135 - 145 mmol/L 138 137 136 Potassium Lvl 3.5 - 5.3 mmol/L 4.2 Creatinine 0.60 - 1.10 mg/dL 0.72 0.99 0.91 Bilirubin, total 0.1 - 1.2 mg/dL 0.6 0.4 0.4 AST 10 - 45 Units/L 15 22 16 ALT 7 - 45 Units/L 12 25 27 SCRIBED Alkaline Phosphatase 38 - 126 Units/L 92 SCRIBED Alanine Transaminase (ALT) 4 - 35 Units/L 16 SCRIBED Potassium 3.4 - 5 mmol/L 4.4 SCRIBED Bilirubin 0.2 - 1.3 mg/dl 0.5 SCRIBED Creatinine 0.7 - 1 mg/dl 1 CrCl- Actual Body Weight (Cockcroft-Gault) 71.9 51 53.2 57.9 Some values recorded on this date have been omitted. Some abnormal values recorded on this date have been omitted. Comments are available for some flowsheets but are not being displayed. No results found for this or any previous visit. Assessment/Plan ASSESSMENT AND PLAN Prema Pearce is a 81 y.o. right-handed female with a past medical history significant for Afib (eliquis held x5 days for lithotropsy for kidney stone), moderate , HTN, T2DM, HFpEF, prior PE (2019), AYAD on CPAP, hypothyroidism, and anxiety who presented on 05/25 w/LFD+dysarthria (intermittent-> fixed 05/25 1500). LKN 3 PM. Initial NIHSS 6 (LFD, dysarthria, L superior quadrantonopia, L sensory, L extinction). hCT w/chronic L parieto-occipital infarct. CTA demonstrated R superior division M2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 presentation. She was a GO for thrombectomy (mRS 0) and achieved TICI 3 reperfusion after two passes with stent retriever. The clot was reportedly very fibrous and somewhat dif ficult to retrieve. The procedure was complicated by AFib with RVR (max HR 130s); given this in conjunction with concern for development of vasospasm, she received 12.5 mg total of intra-arterial Verapamil. There were otherwise no complications. EBL 100 cc. R radial access closed with TR band. She was sedated with Propofol and required initiation of Phenylephrine gtt. She arrived to the NNICU intubated and sedated on 30 of Propofol and on 1.2 of Rajendra with BP 154/101.She opened eyes to voice upon arrival, moved all extremities within the plane of the bed, and followed simple commands. She was quickly weaned off sedation and pressors and was extubated without difficulty. Of note, patient lives alone and is fully independent in all ADLs/IADLs. She continues to drive andmanages her own medications. She has been on Eliquis since she developed PEs after her R knee replacement in May 2019. She has had a challenging year as her son recently from COVID complications 2 weeks ago and she lost her in September 2020. Past Medical History:? 1. AFib (on Eliquis) 2. Moderate aortic stenosis 3. HTN 4. T2DM (A1c 6.2) 5. HFpEF 6. Prior PE (05/2019) 7. AYAD on CPAP 8. Hypothyroidism 9. Anxiety 10. Nephrolithiasis ?? Past Surgical History: ?? 1. Breast lumpectomy 2. Cholecystectomy 3. R total knee replacement 4. Hand surgery with plate and screws 5. Hysterectomy 6. Incision and drainage, L femur ?? Social History:??Patient lives alone in [place], [place]. Independent all ADLs/IADLs. . Lost son to COVID complications in April 2021. Never smoker. Social alcohol use (average 1x/month). ?? Family History:?? 1. Sudden cardiac - mother 2. Heart failure - mother 3. [place] - father 4. Diabetes - father, son 5. HTN - father ?? Allergies:?? 1. Amlodipine - SOB 2. ACEi - cough 3. Citalopram - unknown reaction ?? Home Medications: ?Alprazolam 0.5 mg TID prn ASA 81 mg daily Calcium carbonate 600 mg BID Coreg 25 mg BID Eliquis 5 mg BID Lasix 40 mg daily Glipizide 10 mg BID Synthroid 50 mcg daily Metformin 500 mg BID Rosuvastatin 20 mg daily Zolpidem 10 mg qhs prn Review of Systems: All other systems negative except as indicated in HPI. Vitals 24hr Temp Min: 34.7 ??C (94.4 ??F) Max: 37.2 ??C (98.96 ??F) Pulse Min: 78 Max: 124 NIBP BP Min: 117/101 Max: 159/99 MAP (mmHg) Av.8 Min: 91 Max: 118 A-line No data recorded I/O: Intake/Output Summary (Last 24 hours) at 05/26/2021 0553 Last data filed at 05/26/2021 0300 Gross per 24 hour Intake 27.5 ml Output 375 ml Net -347.5 ml LABS Recent Labs Lab Units 05/26/21 0049 05/25/21231105/25/21222605/25/211955 SODIUM mmol/L -- 137 -- 136 POTASSIUM PLASMA mmol/L -- 4.0 -- 4.2 CHLORIDE mmol/L -- 101 -- 102 CO2 mmol/L -- 26 -- 26 ANIONGAP mmol/L -- 10 -- 8 GLUCOSE mg/dL -- 188 -- 107 POC GLUCOSE MONITOR mg/dL 189 -- 130 -- BUN SERUM mg/dL -- 26* -- 29* CREATININE mg/dL -- 0.99 -- 1.15* CALCIUM mg/dL -- 8.8 -- 9.1 MAGNESIUM mg/dL -- 1.8 -- -- PHOSPHORUS PLASMA mg/dL -- 4.0 -- -- Recent Labs Lab Units 05/25/21231105/25/211955 WBC K/cumm 8.7 9.9 HEMATOCRIT % 27.0* 28.6* HEMOGLOBIN g/dL 8.2* 9.0* PLATELETS K/cumm 257 240 APTT sec 27 23* INR 1.2 -- Recent Labs Lab Units 05/25/21 2312 ALK PHOS Units/L 102 BILIRUBIN TOTAL mg/dL 0.4 TOTAL PROTEIN g/dL 6.5 ALBUMIN g/dL 3.4* ALT Units/L 25 AST Units/L 22 IMAGING (Most recent) NEURO IMAGIN05/25/21, 20:15 EXAMINATION: Computed tomography angiography (CTA) of the head without and with contrast; Computed tomography angiography (CTA) of the neck with contrast. CT perfusion imaging of the head with contrast ?? IMPRESSION: ?? 1. 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 No acute intracranial hemorrhage. ?? 2. Chronic left parieto-occipital infarction. ?? The time sensitive CTA/CTP was communicated by Dr. Tonya MD to Dr. Herrera at 8:15 PM. PHYSICAL EXAM: HEENT: Mucous membranes moist, sclera anicteric. Cardiac: Irregularly irregular Pulmonary: Intubated Abdomen: Non-distended in appearance, soft/non-tender to palpation. Skin: Warm and dry, color appropriate for ethnicity. NEURO EXAM Mental Status Eyes open to voice, regards, follows all commands, oriented x 3 (after extubation) Cranial Nerves PERRL, EOMI with hypometric saccades, VFFTC, L lower FD, mild dysarthria Motor 5/5 BUE and BLE NEUROLOGICAL Meds: ??? 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 -- SBP <175, DBP <100 -- Q1h NC -- Re-start DVT ppx in 24-48h -- Hold ASA, continue home Crestor -- Discuss timeline of re-starting Eliquis -- F/u repeat Hgb A1c, lipid panel -- SMART consult -- PT/OT/CORPORATE SECURITY OFFICER # Anxiety Multiple recent life stressors, currently euthymic. -- holding home Alprazolam iso stroke -- CTM CARDIOVASCULAR and HEME Meds: ??? Rosuvastatin 20 mg daily EKG: Afib, rate 80s # Afib -- Hold AC iso thrombectomy -- Discuss timeline for re-starting Eliquis -- Holding home Coreg given soft BPs -- Metop PRN # HTN Here with SBPs 120-130s, MAPs 90-100s -- SBP <175, DBP<100 -- holding home Coreg, Lasix given soft BPs # HFpEF # Moderate Most recent TTE (08/2020) w/ moderate , markedly dilated LA, hyperdynamic LV w/ EF 66%, mild TR -- Holding home Coreg and Lasix iso soft BPs -- re-start GDMT as able -- FBG -500cc -- Strict I&Os -- Daily weights -- Monitor for new O2 requirement # Prior PE Hx multiple PEs in May 2019 iso R total knee replacement -- holding home Eliquis iso thrombectomy -- SCDs -- monitor O2 requirement # Normocytic anemia Hgb 8.2, baseline 11 -- daily CBC -- CTM PULMONARY Resp Min: 13 Max: 27 SpO2 Min: 81 % Max: 100 % Meds: ??? None # Acute hypoxic respiratory failure iso stroke, sedation for MT Ar[facility] to [facility] int[facility] on PSV, now s/p extubation. -- 97-100% on 6L via NC -- wean O2 as tolerated -- IS q1h # AYAD on CPAP -- continue nightly NPPV RENAL Meds: ??? Calcium carbonate 1 g BID # Hypocalcemia -- continue home calcium carbonate -- [facility] electrolyte replacement protocol -- daily BMP # Hypomagnesemia Mg 1.8 on arrival, s/p 2g IV Mg sulfate -- [facility] electrolyte replacement protocol -- daily Mg # Hx nephrolithiasis Was planning for elective lithotripsy prior to stroke. Currently asymptomatic. -- monitor UOP -- f/u urine microscopy GI and ENDO Meds: ??? Colace 100 mg BID ??? Senna 8.8 mg BID ??? Famotidine 20 mg BID ??? NNICU SSI ??? Levothyroxine 50 mcg daily Diet: NPO Diet IV fluids: D5NS @ 75 /hr Last BM: MINE CAR DISPATCHER # Dysphagia iso stroke Failed bedside swallow evaluation. -- IVF while NPO -- CORPORATE SECURITY OFFICER consult # Nutrition -- dextrose containing fluids while NPO -- f/u CORPORATE SECURITY OFFICER recs -- continue bowel regimen # T2DM Most recent Hgb A1c 6.1% (02/2021). -- hold home Glipizide, Metformin -- ICU SSI while inpatient -- POC glucose q4h # Hypothyroidism Most recent TSH 1.34 (02/2021). -- continue home Levothyroxine 50 mcg daily # Stress ulcer prophylaxis -- continue Famotidine 20 mg BID INFECTION RELEVANT/MOST RECENT MICRO LAB DATA: Blood cultures: n/a Respiratory cultures: n/a Urinalysis/Urine culture: 2+ blood, 2+ LE, WBC 11-20, 1+ bacteria COVID-negative Meds: ??? None # Infectious monitoring -- trend CBC daily -- danielle cx for temp >/= 38.5 -- PRN tylenol for fever -- f/u urine cx ACCESS Lines ?? PIV 18 G R AC ?? PIV 18 G L hand Lucio ??? External VTE Prophylaxis Last Venous Doppler: None Prophylaxis: SCDs, hold chemical ppx 24-48h CODE STATUS: Full Code Disposition: NNICU Yani Mcnair MD Cosigned by Kylah Lilly MD at 05/26/2021 1:43 PM CDT documented in this encounter Procedure Notes * Dong Sneha - 05/26/2021 8:34 AM CDT Speech-Language Pathology: Clinical Bedside Swallow HPI/PMH 81 yo F who presented with intermittent L facial droop and dysarthria concerning for stroke. CTA demonstrated R superior division M2 occlusion (core 0, Tmax 33). NO GO for tPA as she was OOW. GO for thrombectomy with TICI 3 reperfusion after two passes. Current Diet Order: NPO Baseline Feeding Status: Unknown General Information Prema Pearce 05/26/21 General Observations: Pt alert and cooperative in completing evaluation. Pt upright prior to PO trials. Mild left facial droop observed. Precautions: Fall, AYAD Pain Score: 2 (hand) If pain >4, was RN notified? N/A Patient Stated Goal/Comments: None Clinical Impression & Professional Recommendations Diet Solids Recommendation: Regular Diet Liquids Recommendations: Thin/regular Recommended Form of Medications: Whole, With liquid, As tolerated Compensatory Strategies/Modifications: Small bites, Single sips, Slow rate Postural Recommendations: Upright Specialty Instructions/Modifications: Good oral care 2-3x/day Diagnosis: Dysphagia Diagnosis: Within Functional Limits Overall Clinical Impression/Additional Information: Pt's oral mechanism exam was WNL. No s/s of penetration/aspiration observed during the evaluation. Pt achieved adequate oral clearance across trials of all consistencies. Pt demonstrated a clear vocal quality following all trials. No further CORPORATE SECURITY OFFICER in dicated for swallowing at this time. ST to follow up for SMART evaluation. Assessment Details & Results Consistencies Administered: Ice chips, Thin liquids, Purees, Solids MASA: Frost Assessment of Swallowing Ability (MASA) Alertness: Alert Cooperation: Cooperative Auditory Comprehension: No abnormality detected Respiration: Chest clear Respiratory Rate (for swallow): Able to control breath rate for swallow Aphasia: No abnormality detected Apraxia: No abnormality detected Dysarthria: No abnormality detected Saliva: No abnormality detected Lip Seal: No abnormality detected Tongue Movement: Full range of motion Tongue Strength: No abnormality detected Tongue Coordination: No abnormality detected Gag: No gag (not assessed) Palate: No abnormality detected Cough Reflex: No deficit noted Voluntary Cough: No abnormality detected Voice: No abnormality detected Trach: No trach Oral Preparation: No deficits noted Bolus Clearance: Fully cleared Oral Transit: No deficits note Pharyngeal Phase: Mildly restricted laryngeal elevation, Slow initiation Pharyngeal Response: No deficits noted MASA Score: 194 Dysphagia: No dysphagia detected (178-200) Aspiration Risk: No aspiration risk (170-200) NOMS: National Outcomes Measurement System: Level 7 Plan CORPORATE SECURITY OFFICER Recommendation (Add'l Services): No further CORPORATE SECURITY OFFICER indicated(for swallowing) Further Assessment/Follow up Indicated: Next Visit Plan:No further ST warranted(for swallowing) Additional Referrals: None Please reference care plan for treatment goals, if indicated. Discharge Summary Statement If this is the last swallow therapy visit, this serves as the discharge summary. Cosigned by Yoly Cruz, CORPORATE SECURITY OFFICER at 05/26/2021 12:47 PM CDT documented in this encounter Consult Notes * Racquel Stevenson RN - 05/27/2021 3:28 PM CDTAssociated Order(s): POULTRY TRIMMER CONSULT Smart Note for Stroke Patient presents from: home Arriving by: EMS To: ED Patient is an inpatient in division 94-ICU with a clinical stroke diagnosis of right ischemic Patient was last known well at May 25, 2021 when he/she was noted with symptoms starting on 2021 of: IV TPA given: No Location: [place] intervention: Yes Patient stated goals: to get back to normal Recommendations: SMART to evaluate and develop appropriate rehab plan SMART Education Stroke warning signs , Patient instructed regarding how to activate EMS/911 and voice understanding: Yes, Taught about prescribed medications: , Discussed risk factors: and Secondary stroke prevention instructions including: Discussed risk factors: hypertension diabetes mellitus atrial fibrillation/flutter Secondary stroke prevention instruction includes:Medication compliance Reducing weight and/or increasing activity Appropriate diet (diabetic, heart, renal etc.) Blood pressure monitoring Maintain regular physician appointments Stroke education provided to: patient DVT prophylaxis includes:heparinoid To contact the SMART nurse call [phone] Nobl cards left with education packet for additional questions Database consent information: verbal consent for stroke database given consent in person consent obtained from patient * Emily Chang RD - 05/27/2021 2:22 PM CDTAssociated Order(s): IP CONSULT TO NUTRITION SERVICES Nutrition Assessment Reason for Assessment: Consult/Referral Encounter Date: 05/27/21 2:22 PM Patient is a 81 y.o. female LOS is 2 days. HPI: history of Afib (eliquis held x1 week for lithotropsy), moderate , HTN, T2DM, HFpEF, prior PE (2019), AYAD on CPAP, hypothyroidism, and anxiety who presented with intermittent L facial droop and dysarthria concerning for stroke. Objective Past Medical History: Diagnosis Date ??? Adrenal [...] Pulmonary embolism (HCC) ??? Sleep apnea ??? Zenker's diverticulum Past Surgical History: Procedure Laterality Date ??? BREAST LUMPECTOMY ??? CHOLECYSTECTOMY ??? HAND SURGERY Left plate & screws ??? HYSTERECTOMY ??? INCISION AND DRAINAGE FEMUR Left 05/22/2019 Social History Tobacco Use ??? Smoking status: Never Smoker ??? Smokeless tobacco: Never Used Substance Use Topics ??? Alcohol use: Yes Comment: 1mo Family History Problem Relation Age of Onset [...] TW Conv) ??? Anesthesia problems Neg Hx Anthropometrics: Wt Readings from Last 3 Encounters: 05/25/21 74.4 kg (164 lb 0.4 oz) 04/15/21 69.6 kg (153 lb 6.4 oz) 03/21/21 72 kg (158 lb 12.8 oz) Anthropometrics Weight: 74.4 kg (164 lb 0.4 oz) Admission Weight : 74.4 kg Weight Change: -3.40 kg (-7.49 lbs) IBW/kg (Calculated) : 49.9 kg Height: 157.5 cm (5' 2 ) Weight in (lb) to have BMI = 25: 136.4 BMI (Calculated): 30 Nutrition Needs Calculations: Calculated Energy Needs Using Equations Weight: 74.4 kg (164 lb 0.4 oz) Height: 157.5 cm (5' 2 ) Minute Ventilation (L/min): 7 L/min Vital Signs: BP: 127/80 Temp: 36.7 ??C (98 ??F) Pulse: 103 Resp: 17 SpO2: 96 % Medications: Scheduled Meds: aspirin, 325 mg, oral, Daily calcium carbonate, 400 mg of elemental calcium, feeding tube, BID carvediloL, 12.5 mg, oral, BID with meals (bkfst, dinner) docusate sodium, 100 mg, oral, BID enoxaparin, 30 mg, subcutaneous, Daily-2100 FLUoxetine, 40 mg, oral, Daily [Held by Provider] furosemide, 40 mg, feeding tube, Daily insulin lispro, 2-10 Units, subcutaneous, QID (AC & HS) [START ON 05/28/2021] levothyroxine, 50 mcg, oral, Daily - 0600 rosuvastatin, 20 mg, oral, Nightly senna, 1 tablet, oral, BID sodium chloride 0.9%, 0.5-20 mL, intra-catheter, Q8H MISHA tamsulosin, 0.4 mg, oral, Daily with dinner Continuous Infusions: PRN Meds: ??? acetaminophen OR [DISCONTINUED] acetaminophen OR [DISCONTINUED] acetaminophen ??? ALPRAZolam ??? bisacodyl EC ??? dextrose ??? labetalol OR hydrALAZINE ??? ondansetron ??? oxyCODONE ??? sodium chloride 0.9% Lab Review: Sodium Date Value Ref Range Status 05/26/2021 136 135 - 145 mmol/L Final Potassium, pl Date Value Ref Range Status 05/26/2021 3.9 3.3 - 4.9 mmol/L Final BUN Date Value Ref Range Status 05/26/2021 25 8 - 25 mg/dL Final Creatinine Date Value Ref Range Status 05/26/2021 0.91 0.60 - 1.10 mg/dL Final Phosphorus, pl Date Value Ref Range Status 05/26/2021 3.5 2.3 - 4.5 mg/dL Final Albumin Date Value Ref Range Status 05/26/2021 3.3 (L) 3.5 - 5.0 g/dL Final Magnesium Date Value Ref Range Status 05/26/2021 2.1 1.4 - 2.5 mg/dL Final Calcium Date Value Ref Range Status 05/26/2021 9.2 8.5 - 10.3 mg/dL Final HDL Date Value Ref Range Status 05/25/2021 37 (L) >=40 mg/dL Final Comment: Interpretive Data Ages < or = 19 years Acceptable: >45 mg/dL Borderline low: 40-45 mg/dL Low: <40 mg/dL Ages > or = 20 years Desirable: >or= 60 mg/dL Low: <40 mg/dL Literature References: 1. Expert Panel on Integrated Guidelines for Cardiovascular Health and Risk Reduction in Children and Adolescents. Pediatrics 2011;128:S213 2. NCEP Expert Panel. Circulation 2004;110:227 Current Interpretive Data was last revised on 2017. ALT Date Value Ref Range Status 05/26/2021 27 7 - 45 Units/L Final AST Date Value Ref Range Status 05/26/2021 16 10 - 45 Units/L Final Alk phos Date Value Ref Range Status 05/26/2021 91 40 - 130 Units/L Final Lab Results Component Value Date HGBA1C 6.2 (H) 05/25/2021 HDL 37 (L) 05/25/2021 LDLCALC 15 05/25/2021 CHOL 73 05/25/2021 TRIG 104 05/25/2021 Nursing Assessment: Intake/Output Summary (Last 24 hours) at 05/27/2021 1422 Last data filed at 05/27/2021 1300 Gross per 24 hour Intake 950 ml Output 1600 ml Net -650 ml Gastrointestinal Gastrointestinal (WDL): Within Defined Limits Abdomen Inspection: Soft, Nondistended Bowel Sounds (All Quadrants): Active Last BM Date: (MINE CAR DISPATCHER) GI Symptoms: None Last BM Date: (MINE CAR DISPATCHER) Donte Scale Score: 18 Skin Integrity: Surgical incision Dietary Orders (From admission, onward) Start Ordered 05/28/21 0700 Oral Nutrition Supplements Select Supplement: Ensure High Protein - Lennie With Breakfast Question: Select Supplement: Answer: Ensure High Protein - Lennie 05/27/21 1421 05/26/21 0933 Adult Diet Regular, Restricted; Consistent Carbohydrate Diet effective now Question Answer Comment ([facility]) Diet type Regular ([facility]) Diet type Restricted Diabetic: Consistent Carbohydrate 05/26/21 0932 Impression: SMART consult received. SMART labs reviewed. Pt reports a good appetite. Denies any chewing or swallowing difficulty. States a usual body weight of 212# back in September but then her passed and she lost a lot of weight because she no longer felt like cooking meals (because that is something shedid for her ). States she has leveled off around her current weight. States she eats 3 meals/day, mostly lean cuisines, state she also drinks an Atkins shake daily at breakfast. NUTRITION DIAGNOSIS Nutrition Diagnosis 1: Inadequate oral intake Related to: Loss of appetite Evidenced by: Patient interview INTERVENTION Ordered Ensure High Protein with breakfast. SMART labs reviewed with pt. GOALS / MONITORING: Goals: Oral intake to meet 75% estimated nutritional needs by next assessment, Tolerance of medicalfood supplement by next assessment Interventions: Encouragement, Medical food supplement Monitoring and Evaluation: PO intake, Supplement tolerance * Dick Khanna MD - 05/26/2021 3:56 PM CDTAssociated Order(s): CONSULT TO ORTHO- FOOT/ANKLE Orthopaedic Surgery Trauma Service Consult May 26, 2021 3:56 PM Reason for Consult: L silva B ankle fx Requesting Provider: ED Imaging and notes were reviewed and evaluated within 30 minutes of consultation. MBB Dx: Left silva B ankle fx Injury Mechanism: SLMF OI: none PMHx: Afib on eliquis (held x1 week), Aortic stenosis, HTN, T2DM, CHF, prior PE (2019), AYAD, hypothyroidism, anxiety, prior distal radius fx, L DFR s/p distal femur fx 2019 Plan: non-op L Silva B ankle fx Procedure(s): none , , HPI: 81 y.o. female s/p SLMF p/w L Silva B ankle fx. Fell in s/o recent stroke 1 day ago, is now s/p thrombectomy. Has not been able to bear weight. Exam: Closed. TTP over lateral mal, minimal swelling. Full aROM of L ankle, NVI. OI: None. Consulting Services: Neuro ICU primary. PMHx: Afib on eliquis (held x1 week), Aortic stenosis, HTN, T2DM, CHF, prior PE (2019), AYAD, hypothyroidism, anxiety, prior distal radius fx, L DFR s/p distal femur fx 2019. Soc Hx: non smoker, - EtOH, - drugs, household amb w/o assist, retired, lives alone. Edited by: Dick Khanna MD at 05/26/2021 8770 Location: left lower extremity Quality: aching pain Duration: hours Severity: moderate Past Medical History: Diagnosis Date ??? Adrenal nodule (CMS/HCC) (HCC) ??? Anxiety ??? Aortic stenosis, moderate ??? Atrial fibrillation (CMS/HCC) ([facility]) ??? Cardiomyopathy (HCC) ??? Diabetes mellitus (HCC) ??? Dyslipidemia ??? GERD (gastroesophageal reflux disease) ??? Heart murmur ??? HFrEF (heart failure with reduced ejection fraction) (CMS/HCC) ([facility]) ??? Hyperlipidemia ??? Hypertension ??? Hypothyroidism ??? Insomnia ??? Mitral regurgitation ??? NSTEMI (non-ST elevated myocardial infarction) (CMS/HCC) ([facility]) ??? Obesity ??? AYAD on CPAP ??? Patellar sleeve fracture of left knee ??? PONV (postoperative nausea and vomiting) ??? Pulmonary embolism (HCC) ??? Sleep apnea ??? Zenker's diverticulum Past Surgical History: Procedure Laterality Date ??? BREAST LUMPECTOMY ??? CHOLECYSTECTOMY ??? HAND SURGERY Left plate & screws ??? HYSTERECTOMY ??? INCISION AND DRAINAGE FEMUR Left 05/22/2019 Prior to Admission medications Medication Sig Start Date End Date Taking? Authorizing Provider acetaminophen (TYLENOL) 500 mg tablet Take 1,000 mg by mouth as needed for pain Provider, MD Cameron ALPRAZolam (XANAX) 0.5 mg tablet Take 1 tablet (0.5 mg total) by mouth 3 (three) times a day as needed for anxiety 04/22/21 05/22/21 Ryann Galdamez PA aspirin 81 mg enteric coated tablet Take 1 tablet (81 mg total) by mouth daily Patient not taking: Reported on 04/15/2021 08/29/20 08/29/21 Cathleen Walker MD CALCIUM CARBONATE ORAL Take 600 mg by mouth 2 (two) times a day Provider, MD Cameron carvediloL (COREG) 25 mg tablet TAKE 1 TABLET BY MOUTH TWICE A DAY WITH FOOD 10/01/20 Cathleen Walker MD Eliquis 5 mg tablet TAKE 1 TABLET BY MOUTH TWICE A DAY 09/19/20 Cathleen Walker MD furosemide (LASIX) 40 mg tablet Take 1 tablet (40 mg total) by mouth daily 12/06/20 Cathleen Walker MD glipiZIDE (GLUCOTROL) 10 mg tablet TAKE 1 TABLET BY MOUTH 2 TIMES A DAY BEFORE BREAKFAST AND LUNCH 02/19/21 Ryann Galdamez PA levothyroxine (SYNTHROID) 50 mcg tablet Take 1 tablet (50 mcg total) by mouth daily 01/21/21 01/21/22Ryann Galdamez PA metFORMIN (GLUCOPHAGE) 500 mg tablet TAKE 1 TABLET BY MOUTH TWICE A DAY WITH MEALS 03/05/21 Linda Frost PA rosuvastatin (CRESTOR) 20 mg tablet TAKE 1 TABLET BY MOUTH EVERY DAY Patient not taking: Reported on 04/15/2021 09/11/20 Cathleen Walker MD zolpidem (AMBIEN) 10 mg tablet Take 1 tablet (10 mg total) by mouth nightly as needed for sleep forsleep 04/29/21 Ryann Galdamez PA Allergies Allergen Reactions ??? Amlodipine Shortness of breath ??? Prasanth Inhibitors Cough Reaction: COUGH, ??? Citalopram ??? Lisinopril Social History Tobacco Use ??? Smoking status: Never Smoker ??? Smokeless tobacco: Never Used Substance Use Topics ??? Alcohol use: Yes Comment: Family History Problem Relation Age of Onset ??? Sudden Cardiac Mother Family history of sudden cardiac - (Added by TW Conv) ??? Heart failure Mother Family history of heart failure - (Added by TW Conv) ??? Heart attack Father Family history of heart attack - (Added by TW Conv) ??? Diabetes Father Family history of diabetes mellitus - (Added by Conv) ??? Hypertension Father Family hx of hypertension - (Added by TW Conv) ??? Diabetes Son Family history of diabetes mellitus - (Added by Conv) ??? Anesthesia problems Neg Hx Review of Systems: Constitutional: Negative for chillsand fever. HENT: Negative for acute hearing loss Eyes: Negative for painand visual disturbance. Respiratory: Negative for coughand shortness of breath. Cardiovascular: Negative for chest painand palpitations. Gastrointestinal: Negative for abdominal painand vomiting. Genitourinary: Negative for dysuriaand hematuria. Musculoskeletal: pain in injured extremitySkin: Negative for acute rash. Neurological: Negative for seizuresand syncope. Review of systems per HPIand otherwise all other systems are negative. Objective Vitals: Most Recent: Vitals: 05/26/21 1200 05/26/21 1300 05/26/21 1400 05/26/21 1500 BP: 116/77 103/62 120/72 131/76 BP Location: Left arm Left arm Left arm Left arm Patient Position: Sitting Sitting Sitting Sitting Pulse: 111 111 (!) 133 105 Resp: Temp: 36.5 ??C (97.7 ??F) 36.4 ??C (97.5 ??F) TempSrc: Oral Oral SpO2: 96% 94% 96% 96% Weight: Height: Physical Exam: Gen: Well-developed, well-nourished, in no acute distress. Alert and oriented: x3 Normal respirations, no dyspnea with speaking Left Lower Extremity No obvious deformity, skin intact, TTP over lateral mal Full active ROM of the ankle Fires tibialis anterior, gastroc-soleus complex, extensor hallucis longus and flexor hallucis longus SILT superficial peroneal, deep peroneal, tibial, saphenous and sural nerve distributions 2+ dorsalis pedis, posterior tibial pulses Toes warm and well perfused, brisk capillary refill <3 seconds Examination of uninjured extremities demonstrates no tenderness to palpation, full range of motion,no concern for other injury. Lab/Radiology/Diagnostic Review: Laboratory review: Recent Results (from the past 24 hour(s)) POCT prothrombin time, whole blood Collection Time: 05/25/21 7:53 PM Result Value Ref Range PT, POC 12.9 10.6 - 13.5 sec INR, bld, POC 1.1 0.8 - 1.2 POCT glucose Collection Time: 05/25/21 7:55 PM Result Value Ref Range Glucose, POC 108 70 - 199 mg/dL Basic metabolic panel Collection Time: 05/25/21 7:56 PM Result Value Ref Range Sodium 136 135 - 145 mmol/L Potassium, pl 4.2 3.3 - 4.9 mmol/L Chloride 102 97 - 110 mmol/L CO2 26 22 - 32 mmol/L Anion gap 8 2 - 15 mmol/L BUN 29 (H) 8 - 25 mg/dL Creatinine 1.15 (H) 0.60 - 1.10 mg/dL Glucose 107 70 - 199 mg/dL Calcium 9.1 8.5 - 10.3 mg/dL CBC with auto differential Collection Time: 05/25/21 7:56 PM Result Value Ref Range WBC 9.9 3.8 - 9.9 K/cumm Hgb 9.0 (L) 11.9 - 15.5 g/dL Hct 28.6 (L) 35.6 - 45.5 % Plt 240 150 - 400 K/cumm MPV 9.9 9.1 - 12.3 fL RBC 3.41 (L) 3.90 - 5.20 M/cumm MCV 83.9 81.3 - 96.4 fL MCH 26.4 (L) 27.1 - 33.3 pg MCHC 31.5 (L) 32.3 - 35.7 g/dL RDW CV 16.3 (H) 11.1 - 14.9 % RDW SD 50.3 (H) 35.7 - 48.1 fL NRBC abs 0.00 0.00 - 0.01 K/cumm aPTT Collection Time: 05/25/21 7:56 PM Result Value Ref Range aPTT 23 (L) 27 - 37 sec Troponin I high-sensitivity series (baseline, 2hr, 4hr, 6hr) Collection Time: 05/25/21 7:56 PM Result Value Ref Range Trop I hs 27 (H) <=17 ng/L Differential, auto Collection Time: 05/25/21 7:56 PM Result Value Ref Range Neutrophil abs 7.9 (H) 1.7 - 6.5 K/cumm Imm gran abs 0.0 0.0 - 0.1 K/cumm Lymphocyte abs 1.2 0.8 - 3.3 K/cumm Monocyte abs 0.6 0.2 - 0.8 K/cumm Eosinophil abs 0.1 0.0 - 0.5 K/cumm Basophil abs 0.0 0.0 - 0.1 K/cumm Neutrophil pct 80.6 % Imm gran pct 0.3 % Lymphocyte pct 11.8 % Monocyte pct 6.5 % Eosinophil pct 0.6 % Basophil pct 0.2 % Heparin anti factor Xa activity Collection Time: 05/25/21 7:56 PM Result Value Ref Range Anti Factor Xa <0.15 IUnits/mL Lipid panel Collection Time: 05/25/21 7:56 PM Result Value Ref Range Cholesterol 73 30 - 199 mg/dL Triglycerides 104 <=149 mg/dL HDL 37 (L) >=40 mg/dL LDL, calculated 15 <=129 mg/dL Non-HDL Cholesterol 36 mg/dL Chol/HDL ratio 2 Hemoglobin A1c Collection Time: 05/25/21 7:56 PM Result Value Ref Range Hgb A1C 6.2 (H) 4.0 - 5.6 % Estimated Average Glucose 131 mg/dL eGFR Collection Time: 05/25/21 7:56 PM Result Value Ref Range eGFR 48 (L) 90 - 130 mL/min/1.73 m2 Influenza A/B, RSV, and COVID-19 PCR Nasopharyngeal Collection Time: 05/25/21 8:19 PM Specimen: Nasopharyngeal Result Value Ref Range COVID-19 RNA Negative Negative Influenza A RNA Negative Negative Influenza B RNA Negative Negative RSV RNA Negative Negative First COVID-19 test? No Employeed in healthcare? No status? No Group care resident? No Hospitalized? No Is patient in ICU? No Symptomatic as defined by CDC? No Drugs of Abuse Screen, Urine without Confirmation Collection Time: 05/25/21 8:44 PM Result Value Ref Range Amphetamine, ur Not Detected CutOff 500ng/mL Barbiturates, ur Not Detected CutOff 200ng/mL Benzodiazepines, ur Not Detected CutOff 100ng/mL Cannabinoids, ur Not Detected CutOff 50 ng/mL Cocaine, ur Not Detected CutOff 150ng/mL Fentanyl, Ur Not Detected Cutoff 1 ng/mL Methadone, ur Not Detected CutOff 300ng/mL Opiates, ur Not Detected CutOff 300ng/mL Oxycodone, ur Not Detected CutOff 100ng/mL Phencyclidine, ur Not Detected CutOff 25 ng/mL Urine Creatinine 30 mg/dL Urinalysis reflex to microscopic and culture Urine Collection Time: 05/25/21 8:44 PM Specimen: Urine Result Value Ref Range Color, ur Straw Yellow Clarity, ur Clear Clear Specific gravity, ur 1.017 1.003 - 1.030 pH, urine 6.0 Protein, ur ql Trace Negative Glucose, ur ql Negative Negative Ketones, ur Negative Negative Bilirubin, ur Negative Negative Blood, ur 2+ (A) Negative Urobilinogen, ur <2.0 <2.0 mg/dL Nitrite, ur Negative Negative Leukocyte esterase, ur 2+ (A) Negative UA reflex comment Reflex to microscopic UA will be performed. Urinalysis, microscopic only Collection Time: 05/25/21 8:44 PM Result Value Ref Range WBC, ur 11-20 (A) 0 - 5 /HPF RBC, ur 3-5 (A) 0 - 2 /HPF Epithelial cells, squamous, ur 1-5 0 - 5 /HPF Bacteria, ur 1+ (A) Hyaline casts, ur 1-5 0 - 10 /LPF Culture Reflex Comment Reflex to urine culture will be performed. POCT glucose Collection Time: 05/25/21 10:27 PM Result Value Ref Range Glucose, POC 130 70 - 199 mg/dL Troponin I high-sensitivity 2-hour Collection Time: 05/25/21 11:12 PM Result Value Ref Range Trop I hs 22 (H) <=17 ng/L Trop I hs delta See Comment ng/L Trop I hs pct delta See Comment % Trop I hs interp See Comment Comprehensive metabolic panel Collection Time: 05/25/21 11:12 PM Result Value Ref Range Sodium 137 135 - 145 mmol/L Potassium, pl 4.0 3.3 - 4.9 mmol/L Chloride 101 97 - 110 mmol/L CO2 26 22 - 32 mmol/L Anion gap 10 2 - 15 mmol/L BUN 26 (H) 8 - 25 mg/dL Creatinine 0.99 0.60 - 1.10 mg/dL Glucose 188 70 - 199 mg/dL Calcium 8.8 8.5 - 10.3 mg/dL Bilirubin, total 0.4 0.1 - 1.2 mg/dL Protein, pl 6.5 6.5 - 8.5 g/dL Albumin 3.4 (L) 3.5 - 5.0 g/dL Alk phos 102 40 - 130 Units/L ALT 25 7 - 45 Units/L AST 22 10 - 45 Units/L Magnesium Collection Time: 05/25/21 11:12 PM Result Value Ref Range Magnesium 1.8 1.4 - 2.5 mg/dL Phosphorus Collection Time: 05/25/21 11:12 PM Result Value Ref Range Phosphorus, pl 4.0 2.3 - 4.5 mg/dL CBC without differential Collection Time: 05/25/21 11:12 PM Result Value Ref Range WBC 8.7 3.8 - 9.9 K/cumm Hgb 8.2 (L) 11.9 - 15.5 g/dL Hct 27.0 (L) 35.6 - 45.5 % Plt 257 150 - 400 K/cumm MPV 10.4 9.1 - 12.3 fL RBC 3.11 (L) 3.90 - 5.20 M/cumm MCV 86.8 81.3 - 96.4 fL MCH 26.4 (L) 27.1 - 33.3 pg MCHC 30.4 (L) 32.3 - 35.7 g/dL RDW CV 16.7 (H) 11.1 - 14.9 % RDW SD 52.6 (H) 35.7 - 48.1 fL NRBC abs 0.00 0.00 - 0.01 K/cumm Type and screen Collection Time: 05/25/21 11:12 PM Result Value Ref Range Gian, indirect Negative ABO Rh O Positive aPTT Collection Time: 05/25/21 11:12 PM Result Value Ref Range aPTT 27 27 - 37 sec Protime-INR Collection Time: 05/25/21 11:12 PM Result Value Ref Range PT 13.8 (H) 9.5 - 13.6 sec INR 1.2 0.9 - 1.2 eGFR Collection Time: 05/25/21 11:12 PM Result Value Ref Range eGFR 58 (L) 90 - 130 mL/min/1.73 m2 POCT glucose Collection Time: 05/26/21 12:49 AM Result Value Ref Range Glucose, POC 189 70 - 199 mg/dL POCT glucose Collection Time: 05/26/21 6:05 AM Result Value Ref Range Glucose, POC 159 70 - 199 mg/dL POCT glucose Collection Time: 05/26/21 11:37 AM Result Value Ref Range Glucose, POC 126 70 - 199 mg/dL Radiology Review: I independently reviewed and interpreted the imaging with the following findings: XR w/ L transverse silva B ankle fx Stress XR R ankle w/ widening of the medial clear space to 4mm. Procedure: None Assessment/Plan: 81 y.o. female p/w L silva B ankle fx. Subtle instability on stress XR but not enough to warrant surgical intervention. Will plan on treating non-operatively. 1. Weight Bearing: WBAT LLE in CAM boot. Please remove for hygiene and daily skin checks. 2. Diet: Regular diet 3. Further Imaging:none 4. Pain control: per primary 5. PT/OT 6. Abx: n/a 7. Will discuss with the ortho trauma team prior to further recommendations. Follow-up will be arranged by the orthopaedic team. Recommend plan for follow-up at [facility] (call [phone] to confirm appointment) in 3- 4 week(s). Dick Khanna MD Orthopaedic Surgery Resident [phone] ?? Normal business hours: If you know the resident's name on the appropriate orthopaedic surgery team, please use the Directory Search at [email or web address] to page resident directly. ?? If questions arise and the appropriate resident can't be reached or you are calling overnight, please contact [phone] ( 7:30 PM - 6:30 AM - Floor Resident) or [phone] (24 hours/day- Consult Resident) Cosigned by Moses Vora MD at 05/27/2021 7:19 AM CDT Associated attestation - Moses Vora MD - 05/27/2021 7:19 AM CDT I personally saw and examined the patient as an inpatient on 27 may 2021. I have reviewed the imaging which shows left stress stable ankle fracture. I have read the resident???s note and agree withthe findings and plan by Dr Dick Khanna MD. Moses Vora MD 05/27/2021, 7:19 AM * Meghan Castaneda MD - 05/25/2021 9:46 PM CSTAssociated Order(s): IP CONSULT TO NEUROLOGY Hyperacute Stroke Team - [facility] Consult Note Initial information: Narrative: Ms. Pearce is a 81 y.o. female who presents as an acute tPA page. Requesting provider: Kunal Dalton Reason for consult: Acute stroke suspected Page time (24h format): 05/25/20211940 Last known well Date Last Known Well : 05/25/21 Time Last Known Well: 1500 Onset of Symptoms - Date: 05/25/21 Onset of Symptoms - Time: 1500 Discovery of Symptoms - Date: 05/25/21 Discovery of Symptoms - Time: 1500 (05/25/211952) Chief complaint: left facial droop, slurred speech HPI: Prema Pearce is a 81 year old woman with a history of afib (eliquis held x1 week for lithotropsy), htn, T2DM, hypothyroidism, prior PE, anxiety, heart failure, who presents with stuttering leftfacial droop and slurred speech. She was last normal the evening of 05/24. All day on 05/25 she has had intermittent drooling and slurring of her speech, but it did not go away starting at 1500 05/25. Her family spoke with her and called EMS. At baseline, she lives independently, walks independently, drives, and is independent in all ADLs/IADLs. She manages her own medications. She recently had a kidney stone therefore held her eliquis for 1 week for lithotropsy, which she underwent on 05/21. She has been on eliquis since she had PEs after her right knee replacement surgery in May 2019. She alsohas a history of afib. She has had a challenging year as her son from COVID complications 2 weeks go and she lost her in September 2020. On arrival to the ED, afebrile, HR 86 in afib, RR 20, BP 141/112, 100% RA. Glucose 108. Xa <0.15. Stroke risk factors: Age over 55, Atrial Fibrillation, CAD, CHF, Diabetes, Hypertension and prior PE, anticoagulation held periprocedure Notable home meds (i.e., anticoagulation): apixaban (eliquis) Past medical history, past surgical history, current medications, allergies, family history and social history were reviewed, and are noted at the end of this note. Vitals: 05/25/212049 BP: 137/100 Pulse: 98 Resp: 20 SpO2: 100% NIH Stroke Scale Interval: Baseline Level of Consciousness (1a.): Alert, keenly responsive LOC Questions (1b.): Answers both questions correctly LOC Commands (1c.): Performs both tasks correctly Best Gaze (2.): Normal Visual (3.): No visual loss Facial Palsy (4.): Minor paralysis Motor Arm, Left (5a.): No drift Motor Arm, Right (5b.): No drift Motor Leg, Left (6a.): No drift Motor Leg, Right (6b.): No drift Limb Ataxia (7.): Absent Sensory (8.): [id number] sensory loss, patient feels pinprick is less sharp or is dull on theaffected side, or there is a loss of superficial pain with pinprick, but patient is aware of being touched Best Language (9.): No aphasia Dysarthria (10.): [id number] dysarthria, patient slurs at least some words and, at worst, canbe understood with some difficulty Extinction and Inattention (11.) (Formerly Neglect): Profound gemini- inattention/extinction more than1 modality Total: 5 (05/25/212009) Espitia labs (FSBG, INR, platelets, Xa): Lab Results Lab Value Date/Time GLUCOSE 107 05/25/20211955 GLUCOSE 108 05/25/20211954 GLUCOSE 188 (H) 03/12/2021 0000 INR 4.5 (H) 06/12/2019 0451 INR 2.2 (H) 05/19/2019 1134 HCT findings: no acute intracranial hemorrhage, chronic left parieto-occipital infarct Thrombolytic decision: tPA decision: NO GO. Rationale: Last known well greater than 4.5 hours ago tPA decision time (24 hour format): 1999 tPA bolus time (24 hour format): N/A, tPA not given BP prior to tPA bolus: N/A, tPA not given Reason for tPA delay (>30 mins [id number], if applicable): N/A, patient did not receive tPA Thrombectomy decision: LVO on CTA?: Yes, Location: MCA, M2 segment CTA read time/fellow: time: 2013, fellow: Javier CTP: ?? Core volume: 0 mL ?? Penumbra volume: 33 mL ?? Mismatch ratio: 1 Baseline functional status: MRS 0: The patient has no symptoms. Intervention: GO Neuro-IR contact time: Called at (:mm): 2023 Hyperacute MRI Indication: Not performed Findings: N/A, not performed Wake-up stroke: ?? Time of symptom discovery (24h format): N/A, patient not a candidate for WAKE-UP protocol ?? DWI-FLAIR mismatch: N/A, patient not a candidate for protocol ?? MRI read time/fellow: N/A, patient was not a candidate for protocol Physical Examination: BP 137/100 Pulse 98 Resp 20 Ht 157.5 cm (5' 2 ) Wt 77.8 kg (171 lb 8.3 oz) SpO2 100% BMI 31.37 kg/m?? GEN: NAD HEENT: NC/AT, MMM CV: afib, no m/r/g PULM: No increased work of breathing ABD: Soft, nontender, nondistended EXT: Warm and well-perfused SKIN: Warm and dry Neurologic Examination: Mental status: Awake, Alert, Oriented x 3 (person, place and time) Speech: Normal fluency, repetition, and comprehension. and Dysarthric Cranial Nerves: left superior quadrantanopia, left lower facial droop. Motor: Normal bulk and tone of the four extremities. 5/5 strength in the bilateral upper and lower extremities, no pronator drift Reflexes: deferred Sensory: Sensory deficit present: decreased sensation on the left side, extinguishes on left Coordination Gait: Finger to nose intact bilaterally without ataxia, Heel to calderón intact bilaterally without ataxia, gait not tested due to acuity of presentation Inattention: extinguishes on left to dual tactile stimulation, extinguishes on left to dual visual stimulation Other: NIH Stroke Score Time: 05/25 1A Level of Consciousness [x] 0 Alert, keenly responsive [] 1 Not alert but arousable by minor stimulation to obey answer or respond [] 2 Not alert, requires repeated stimulation to attend or is obtunded and requires strong or painful stimulation to make movements (not stereotyped) [] 3 Responds only with reflex motor or autonomic effects or totally unresponsive, flaccid and arreflexic 1B LOC Questions [x] 0 Answers both questions correctly [] 1 Answers one questions correctly [] 2 Answers neither question correctly 1C LOC Commands [x] 0 Performs both tasks correctly [] 1 Performs one task correctly [] 2 Performs neither task correctly 2 Best Gaze [x] 0 Normal [] 1 Partial gaze is abnormal in one or both eyes but forced deviation or total gaze paresis is notpresenet [] 2 Forced gaze or total gaze paresis not overcome by the oculocephalic maneuver 3 Visual [] 0 No visual loss [x] 1 Partial henianopia [] 2 Bilateral hemianopia (blind not including cortical blindness) 4 Facial Palsy [] 0 Normal symmetrical movements [x] 1 Minor paralysis (flattened nasolabial fold, asymmetry on smiling) [] 2 Partial paralysis(total or near-total paralysis of lower face) [] 3 Complete paralysis of one or both sides( absence of facial movement in the upper and lower face) 5A Motor Arm Left [x] 0 No drift; limb holds 90(or 45) degrees for full 10 seconds [] 1 Drift; limb holds 90 (or 45) degrees, but drifts down before full 10 seconds, does not hit bedor other support. [] 2 Some effort against gravity, limb cannot get to or maintain (if cued) 90 (or 45) degrees, drifts to bed, but has some effort against gravity [] 3 No effort against gravity, limb falls [] 4 No movement UN Amputation or joint fusion 5B Motor Arm Right [x] 0 No drift; limb holds 90(or 45) degrees for full 10 seconds [] 1 Drift; limb holds 90 (or 45) degrees, but drifts down before full 10 seconds, does not hit bedor other support. [] 2 Some effort against gravity, limb cannot get to or maintain (if cued) 90 (or 45) degrees, drifts to bed, but has some effort against gravity [] 3 No effort against gravity, limb falls [] 4 No movement UN Amputation or joint fusion 6A Motor Leg Left [x] 0 No drift, leg holds 30 degrees for full 5 seconds [] 1 Drift, leg falls by the end of the 5-second period but does not hit the bed [] 2 Some effort against gravity, leg falls to bed by 5 seconds but has some effort against gravity [] 3 No effort against gravity, leg falls to bed immediately [] 4 No movement UN Amputation of joint fusion 6B Motor Leg Right [x] 0 No drift, leg holds 30 degrees for full 5 seconds [] 1 Drift, leg falls by the end of the 5-second period but does not hit the bed [] 2 Some effort against gravity, leg falls to bed by 5 seconds but has some effort against gravity [] 3 No effort against gravity, leg falls to bed immediately [] 4 No movement UN Amputation of joint fusion 7 Limb Ataxia [x] 0 Absent [] 1 Present in one limb [] 2 Present in two limbs UN Amputation of joint fusion 8 Sensory [] 0 Normal, no sensory loss [x] 1 Mild to moderate sensory loss, patient feels pinprick is less sharp or is dull on the affected side or there is a loss of superficial danielle with pinprick but patient is aware of being touched [] 2 Sever to total sensory loss, patient is not aware of being touched in the face, arm or leg 9 Best Language [x] 0 No aphasia, normal [] 1 Mild to moderate aphasia, some obvious loss of fluency or facility of comprehension, however makes conversation about provided materials difficult or impossible [] 2 Sever aphasia, all communication is through fragmentary expression, great need for interference, questioning and guessing by the listener. Range of information that can be exchanged is limited, listener carries burden of communication. Examiner cannot identify materials provided from patient re sponse. [] 3 Mute, global aphasia, no usable speech or auditory comprehension 10 Dysarthria [] 0 Normal [x] 1 Mild to moderate dysarthria, patient slurs at least some words and at worst, can be understood with some difficulty [] 2 Sever dysarthria, patient's speech is so slurred as to be unintelligible in the absence of or out of proportion to dysphasia, or is mute/anarthric UN Intubated or other physical barrier 11 Extinction and Inattention (formerly neglect) [] 0 No abnormality [] 1 Visual tactile, auditory, spatial or personal inattention or extinction to bilateral stimulation in one of the sensory modalities [x] 2 Profound gemini-inattention/extinction more than one modality 6 TOTAL SCORE Assessment & Plan: Ms. Pearce is a 81 y.o. year old female with a history of afib, PE currently holding eliquis for lithotropsy who presents with acute onset left lower facial droop, dysarthria, left superior quadrantanopia, left sided sensory deficits, and left sided extinction to simultaneous visual and tactile stimulation. Stuttering symptoms became fixed at 1500 05/25. Not a candidate for tPA given >4.5h since LKN. CTA revealed R M2 occlusion, CTP without core, penumbra 33, therefore GO for mechanical thrombectomy, which was discussed with both the patient and the patient's son Homer who was presentat the time. Following procedure, she warrants admission for close monitoring for post-procedural bl eed, as well as to complete her workup to mitigate risk factors for secondary stroke prevention. Disposition: - admission labs, including Factor Xa, UA/UDS, COVID, CBC, BMP - secondary risk factor stratification labs lipid panel, A1c - mechanical thrombectomy with neuro IR - following procedure, admission to NNICU Case discussed with neurology chief commissions analyst The [facility] team will sign off due to patient admission to the stroke service. For acute neurologic change and repeat stroke assessment, please activate the tPA pager at [phone]. For a non-emergent questions please call the inpatient stroke phone at [phone]. Meghan Castaneda MD 05/25/2021, 10:11 PM Subjective Past Medical History: Past Medical History: Diagnosis Date ??? Adrenal [...] Pulmonary embolism (HCC) ??? Sleep apnea ??? Zenker's diverticulum Past Surgical History: Past Surgical History: Procedure Laterality Date ??? BREAST LUMPECTOMY ??? CHOLECYSTECTOMY ??? HAND SURGERY Left plate & screws ??? HYSTERECTOMY ??? INCISION AND DRAINAGE FEMUR Left 05/22/2019 Medications: No current facility-administered medications on file prior to encounter. Current Outpatient Medications on File Prior to Encounter Medication Sig Dispense Refill ??? acetaminophen (TYLENOL) 500 mg tablet Take 1,000 mg by mouth as needed for pain ??? ALPRAZolam (XANAX) 0.5 mg tablet Take 1 tablet (0.5 mg total) by mouth 3 (three) times a day asneeded for anxiety 90 tablet 0 ??? aspirin 81 mg enteric coated tablet Take 1 tablet (81 mg total) by mouth daily (Patient not taking: Reported on 04/15/2021) 30 tablet 11 ??? CALCIUM CARBONATE ORAL Take 600 mg by mouth 2 (two) times a day ??? carvediloL (COREG) 25 mg tablet TAKE 1 TABLET BY MOUTH TWICE A DAY WITH FOOD 180 tablet 3 ??? Eliquis 5 mg tablet TAKE 1 TABLET BY MOUTH TWICE A DAY 180 tablet 3 ??? furosemide (LASIX) 40 mg tablet Take 1 tablet (40 mg total) by mouth daily 30 tablet 11 ??? glipiZIDE (GLUCOTROL) 10 mg tablet TAKE 1 TABLET BY MOUTH 2 TIMES A DAY BEFORE BREAKFAST AND LUNCH 180 tablet 1 ??? levothyroxine (SYNTHROID) 50 mcg tablet Take 1 tablet (50 mcg total) by mouth daily 30 tablet 11 ??? metFORMIN (GLUCOPHAGE) 500 mg tablet TAKE 1 TABLET BY MOUTH TWICE A DAY WITH MEALS 180 tablet 1 ??? rosuvastatin (CRESTOR) 20 mg tablet TAKE 1 TABLET BY MOUTH EVERY DAY (Patient not taking: Reported on 04/15/2021) 90 tablet 3 ??? zolpidem (AMBIEN) 10 mg tablet Take 1 tablet (10 mg total) by mouth nightly as needed for sleepfor sleep 90 tablet 0 Allergies: Allergies Allergen Reactions ??? Amlodipine Shortness of breath ??? Prasanth Inhibitors Cough Reaction: COUGH, ??? Citalopram ??? Lisinopril Family History: Family History Problem Relation Age [...] TW Conv) ??? Anesthesia problems Neg Hx Social History: Social History Tobacco Use ??? Smoking status: Never Smoker ??? Smokeless tobacco: Never Used Substance Use Topics ??? Alcohol use: Yes Comment: 1/mo ??? Drug use: Never Review of Systems: A complete??review of systems was performed including symptoms pertaining to the following systems:constitutional, cardiovascular, respiratory, gastrointestinal, genitourinary, musculoskeletal, neurological, psychiatric, endocrine, immunologic, integumentary, hematological, eyes, and ears, nose, mo uth, and throat.?All systems were negative except as noted in the History of Presenting Illness??(HPI). 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 Pt reports left side facial droop and slurred speech noticed 1500 per pt. Family came to see pt and called EMS approximately 1930. PMH HTN, DM, blood clot post surgery and AFIB, on eliquis, however has not taken x1 week for procedure. Pt A&Ox4. VSS, slightly hypertensive upon arrival. NESS DEVELOPMENT EXECUTIVE * Joseph Dallas MD - 05/25/2021 7:58 PM CST HPI Chief Complaint Patient presents with ??? Facial Droop 81 yo F hx AF on eliquis but not taking for one week p/a code stroke. Stuttering symtoms all day but fully resolved until LKN 3p today. P/w dysarthia and left facial droop. Glucose 108 no blood on HCT arrives GCS15 VSS taken to scanner for further eval. Patient History: Patient Active Problem List Diagnosis Date Noted ??? Acute left flank pain 03/21/2021 ??? History of nephrolithiasis 03/21/2021 ??? Acute cystitis with hematuria 03/12/2021 ??? BMI 29.0-29.9,adult 03/12/2021 ??? Weight loss 03/12/2021 ??? Dysuria 03/12/2021 ??? Tremor 02/05/2021 ??? BMI 32.0-32.9,adult 12/27/2020 ??? Fatigue 12/27/2020 ??? Carpal tunnel syndrome of left wrist 11/12/2020 ??? Blister 10/29/2020 ??? Dizziness 09/18/2020 ??? Rib pain on left side 09/04/2020 ??? Dyspnea 09/04/2020 ??? Obesity (BMI 30-39.9) 08/21/2020 ??? Pica in adults 08/21/2020 ??? Thyroid nodule 08/21/2020 ??? 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 Anxiety 08/21/2020 ??? Sleep disturbance 08/21/2020 ??? Vitamin D deficiency 08/21/2020 ??? Encounter to establish care 08/21/2020 ??? Pulmonary embolism (HCC) 06/10/2019 ??? Acute on chronic systolic CHF (congestive heart failure) (CMS/HCC) ([facility]) 06/08/2019 ??? Non-ST elevation (NSTEMI) myocardial infarction (CMS/HCC) ([facility]) 06/08/2019 ??? Chronic combined systolic (congestive) and diastolic (congestive) heart failure ([facility]) 06/05/2019 ??? Gastro-esophageal reflux disease without esophagitis 06/05/2019 ??? Generalized anxiety disorder 06/05/2019 ??? Hyperlipidemia, unspecified 06/05/2019 ??? Hypertensive heart disease with heart failure (CMS/HCC) ([facility]) 06/05/2019 ??? Hypokalemia 06/05/2019 ??? Insomnia, unspecified 06/05/2019 ??? penitentiary (current) use of insulin ([facility]) 06/05/2019 ??? Major depressive disorder, single episode, unspecified 06/05/2019 ??? Slow transit constipation 06/05/2019 ??? Acute pulmonary embolism with acute cor pulmonale (CMS/HCC) ([facility]) 05/31/2019 ??? Hypothyroidism, unspecified 05/31/2019 ??? Obstructive sleep apnea 05/31/2019 ??? Type 2 diabetes mellitus without complications (CMS/HCC) ([facility]) 05/31/2019 ??? Essential hypertension 05/31/2019 ??? Left femoral fracture 05/31/2019 ??? Atrial fibrillation with RVR (CMS/HCC) ([facility]) 05/30/2019 ??? Presence of left artificial knee joint 05/25/2019 ??? Open fracture of left distal femur (CMS/HCC) ([facility]) 05/21/2019 ??? Closed displaced comminuted fracture of shaft of left femur (CMS/HCC) ([facility]) 05/21/2019 ??? Paroxysmal atrial fibrillation (CMS/HCC) ([facility]) 08/18/2017 ??? Snoring 02/16/2014 ??? Carotid bruit 12/27/2010 Past Medical History: Diagnosis Date ??? Adrenal nodule (CMS/HCC) ([facility]) ??? Anxiety ??? Aortic stenosis, moderate ??? Atrial fibrillation (CMS/HCC) ([facility]) ??? Cardiomyopathy ([facility]) ??? Diabetes mellitus ([facility]) ??? Dyslipidemia ??? GERD (gastroesophageal reflux disease) ??? Heart murmur ??? HFrEF (heart failure with reduced ejection fraction) (CMS/HCC) ([facility]) ??? Hyperlipidemia ??? Hypertension ??? Hypothyroidism ??? Insomnia ??? Mitral regurgitation ??? NSTEMI (non-ST elevated myocardial infarction) (CMS/HCC) ([facility]) ??? Obesity ??? AYAD on CPAP ??? Patellar sleeve fracture of left knee ??? PONV (postoperative nausea and vomiting) ??? Pulmonary embolism ([facility]) ??? Sleep apnea ??? Zenker's diverticulum Past Surgical History: Procedure Laterality Date ??? BREAST LUMPECTOMY ??? CHOLECYSTECTOMY ??? HAND SURGERY Left plate & screws ??? HYSTERECTOMY ??? INCISION AND DRAINAGE FEMUR Left 05/22/2019 Family History Problem Relation Age of Onset [...] TW Conv) ??? Anesthesia problems Neg Hx Social History Tobacco Use ??? Smoking status: Never Smoker ??? Smokeless tobacco: Never Used Substance Use Topics ??? Alcohol use: Yes Comment: 1/mo ??? Drug use: Never Social History Social History Narrative ??? Not on file Review of Systems Review of Systems Unable to perform ROS: Acuity of condition Physical Exam ED Triage Vitals [05/25/211952] Temp Pulse Resp BP SpO2 -- 86 20 (!) 141/112 100 % Temp src Heart Rate Source Patient Position BP Location FiO2 (%) -- -- -- -- -- Physical Exam Constitutional: Appearance: Normal appearance. HENT: Head: Normocephalic and atraumatic. Mouth/Throat: Mouth: Mucous membranes are moist. Eyes: Extraocular Movements: Extraocular movements intact. Pupils: Pupils are equal, round, and reactive to light. Pulmonary: Effort: Pulmonary effort is normal. No respiratory distress. Abdominal: General: There is no distension. Musculoskeletal: General: No signs of injury. Cervical back: Normal range of motion. Right lower leg: No edema. Left lower leg: No edema. Skin: General: Skin is warm and dry. Neurological: Mental Status: She is alert. Comments: NIHSS 1 for partial left quandrant 1 for minor left face droop 1 for subjective decreased sensation left leg 1 or dysarthia 2 for neglect to multiple sensation on left MDM Medical Decision Making Differential Diagnosis or Management Options: 81 yo F p/a code stroke. No blood on HCT. Glucose wnl. NIHSS > 6 within 16 hours so plan for CTA. No-go for TPA outside window. Thrombectomy decision pending CTA. Attending Summary of Care ED Course as of 05/25/212046 Time: 05/25 2029 Comment: Patient is a go for thrombectomy per neuro, leaving shortly By: Joseph Dallas MD Time: 05/25 2046 Comment: Going up to thrombectomy now By: Joseph Dallas MD Cerebrovascular accident (CVA), unspecified mechanism (HCC) Longstanding persistent atrial fibrillation (CMS/HCC) (HCC) Primary hypertension Hypothyroidism, unspecified type Joseph Dallas MD Resident 05/25/212035 Cosigned by Kunal Dalton MD at 05/25/2021 11:22 PM BUSINESS DEVELOPMENT EXECUTIVE NESS DEVELOPMENT EXECUTIVE NESS DEVELOPMENT EXECUTIVE Associated attestation - Kunal Dalton MD - 05/25/2021 11:22 PM BUSINESS DEVELOPMENT EXECUTIVE I have seen and examined the patient on 05/25/2021. I agree with the findings and plan of care as documented in the resident's note. * Sherrell Fine RN - 05/25/2021 7:50 PM CST Bed: [id number] Expected date: Expected time: Means of arrival: Comments: Stroke Sherrell Fine RN 05/25/211949 NESS DEVELOPMENT EXECUTIVE documented in this encounter Miscellaneous Notes * Provider Query - Kylah Lilly MD - 05/29/2021 7:34 PM CDT Clinical Indicators/Treatments: - Arrived to the [facility] intubated and sedated following thrombectomy (H&P 05/26) - Acute hypoxic respiratory failure iso stroke, sedation- arrived ICU intubated, now extubated (H&P 05/26) - arrived to the [facility] intubated and sedated - She was quickly weaned off sedation and pressors and was extubated without difficulty (progress note 05/26) Evaluation/Management: Extubated following thrombectomy THIS IS A VALIDATION QUERY - ADDITIONAL CLINICAL INFORMATION REQUESTED Based on the [facility] approved criteria for respiratory failure (see below), verify if this documented diagnosis is still accurate. ___ Acute hypoxic respiratory failure ruled out. Short term ventilator support following procedure only _X__ Acute hypoxic respiratory failure present and treated ___ Other, specify below Additional Provider Response: Respiratory Failure Screening Criteria Acute Respiratory Failure PATIENT DOES NOT NEED TO MEET ALL CRITERIA, INTUBATION IS NOT REQUIRED. Supplemental Oxygen - New supplemental O2 greater than or equal to 40 percent (5 liters/minute per nasal cannula) or - New oxygen requirement in setting of 1 or more of the below results or vitals, Results or Vitals (1 or more of the following) ??? pCO2 greater than 50 and pH less than 7.35 ??? pO2 at or below 55 mmHg or SpO2 (pulse oximetry) less than 88% on RA ??? pO2 decrease or pCO2 increase by 10 mmHg from baseline if known ??? P/F ratio (pO2/FiO2) less than 300 Other signs and symptoms may include: - Tachypnea, dyspnea, shortness of breath, wheezing - Air hunger - Use of accessory muscles of respiration - Inability to speak in full sentences - Cyanosis or pallor - Anxiety or restlessness - Positioning of the patient???s body (for example, tripod breathing) Chronic Respiratory Failure Dependence on continuous (24 hours a day) home O2 or non-invasive mechanical ventilation (BiPAP, AVAPS, etc.) Acute on Chronic Respiratory Failure Exacerbation or decompensation of chronic respiratory failure recognized by any of the following: - pCO2 greater than 50 mmHg + pH less than 7.35 - Increase in baseline pCO2 (if known) by 10 mmHg or more - pO2 less than 55 mmHg or SpO2 less than 88% on patient???s baseline oxygen rate or higher - Worsening dyspnea requiring an increase in chronic supplemental oxygen - Greater hypoxemia (decreased pO2 or SpO2 from baseline, if known) If provider believes patient has respiratory failure in the absence of above clinical indicators, please document rationale and clinical impression in detail Respiratory Failure References - [employer] Hospitalist Jan 2013 - Coding Clinics: 3rd Q 1987, p 7 and 2nd Q 1989, p.20 - [email or web address]/jytchrdk-atr-cbrjudoez/medicare-learning-network-mln/mlnprod ucts/downloads/lbxr-eiuuvl-zfmoxwx-text-only.pdf Use of terms such as likely, suspected, possible, or probable (associated with a specific diagnosisthat is being evaluated, monitored, or treated as if it exists) are acceptable and can be coded in the inpatient setting when documented at the time of discharge. This documentation will become part of the patient's medical record. Darius Titus MD, CCDS Clinical Humane Officer Email: [email or web address] * Plan of Care - Triny Miller RN - 05/29/2021 9:54 AM CDT Problem: Activity: Goal: Mobility will improve Outcome: Progressing Problem: Nutritional: Goal: Dietary intake will improve Outcome: Progressing Problem: Activity: Goal: Range of joint motion will improve Outcome: Progressing Goals: Clinical Goals for the Shift: monitor neuro checks, vital signs, promote comfort * Hospital Course - Eliana Moreira - 05/29/2021 7:27 AM CDT Prema Pearce is a 81 y.o. female with a past medical history significant for AFib (on Eliquis, held for 1 week for lithotropsy), aortic stenosis, HTN, T2DM, HFpEF, prior PE (2019), AYAD on CPAP,hypothyroidism (on synthroid), and anxiety who presented on 05/25/21 with L facial droop and dysarthria. Last known at baseline at bedtime on 05/24. NIHSS 6 on initial assessment. NO GO for tPA. GO forthrombectomywith TICI 3 full reperfusion after 2 passes with stent retriever . Stroke risk factors are: hypertension diabetes mellitus atrial fibrillation/flutter age greater than [address] Head without contrast (05/27) showed an unchanged, chronic L parieto-occipital infarct, but no acute abnormalities. Pt was admitted to stroke for risk factor management. # Acute ischemic stroke Pt was admitted with a cardioembolic stroke attributed to Thrombosis of small vessels affecting Middle Cerebral. Neuro exam on admission was notable for L facial droop, dysarthria, L superior quadrantinopia, L sensory deficits, and L extinction. Repeat hCT showed small R grace radiata stroke Workup for risk factor modification revealed: LDL = 15 A1c = 6.2% EKG on admission: atrial fibrillation with T wave abnormality and lengthened QT Telemetry throughout admission: Afib TTE: not done this admission, previously 08/2020 with EF 68%, moderate , no thrombus CTA head/neck: L M2 occlusion. B/l ICA < 30% CT head 05/28: small Right grace radiata stroke The patient was not discharged She was continued on crestor 20mg (LDL 15). She was started on ASA 325 daily for secondary prevention while off AC. Repeat hCT 05/28 The current [employer] guidelines recommend long-term treatment with a high-intensity statin even in patient's with LDL level <100, if tolerated. (The SPARCL trial, Judi et al. 2010, showed that statin treatment should not be titrated to LDL level.) SMART Consult was performed and PT/OT recommended discharge to home with home health PT/OT. The patient will follow up in the [facility]roke clinic. [facility] [address] [place] [id number] Risk factors were optimized on discharge. Patient and family were advised regarding the risks of new stroke, signs and symptoms of stroke, and how best to avoid a further event. Other medical problems addressed during this hospitalization: #Atrial fibrillation: Previously diagnosed atrial fibrillation managed on an outpatient basis with eliquis 5mg BID (held for 1 wk for lithotropsy) and coreg 25 BID. Eliquis 5mg BID should be re-started on 05/29. #L ankle fracture: Xrays performed during this inpatient stay revealed a nondisplaced distal fibular fracture. Orthopedics consult recommended management with RENETTA mullins. PT assessment recommended discharge with wheeled walker and with outpatient PT follow up. Follow up appointment with Dr. Vora on 06/13. #Kidney stones s/p lithotropsy: Lithotropsy procedure took place on 05/21. Held Eliquis anticoagulation for 1 week in preparation forthis procedure. Currently recovering well. Manage pain with Tylenol PRN. #Moderate /HFpEF: Last EF 66% with mod 08/2020. Medications at home include lasix 40 and coreg 25 BID. Lasix held during admission, but should continue on discharge. Euvolemic on exam. Follows with Dr. Walker for cardiology care. #T2DM A1C on admission 6.2%. Blood glucose managed with insulin while inpatient. Re- start home metformin 500 BID, glipizide 10 BID on discharge #HTN Blood pressure slightly hypertensive during this admission, reaching up to 160s/110s. Managed on Coreg 25mg BID, Lasix 40 held. Restart both Coreg and Lasix on discharge. #HLD Managed on crestor 20mg, please continue this medication on discharge #Anemia: Baseline 9-10 per Care Everywhere. Hgb 9 on admission, dipped to 7.8 on 05/27- 05/28. Hgb 8.8 on day of discharge (05/29). Iron studies and CBC WNL. #Positive UA: UA obtained in ED concerning for 11-20 WBC, 2+ leukocyte esterase, and 1+ bacteria. Urine culture showed clinically insignificant growth. Complained of no symptoms of UTI. Received antibiotics after lithotropsy procedure, did not receive antibiotics during this admission. #AYAD on CPAP: Uses nightly CPAP #Hypothyroidism: Cont home synthroid 50 mcg daily #Anxiety: Managed at home with xanax 0.5 BID PRN, prescribed by PCP Dr. Ryann Galdamez. Recommend switching to alternate anti-anxiety medication due to potential adverse side effects in advanced age/post-stroke status. Medication Changes During Admission RESTART eliquis 5mg twice daily DISCONTINUE Aspirin 81 mg daily DISCONTINUE xanax 0.5 mg twice daily as needed Disposition/Home Health Needs: PT recommendations include discharge with wheeled walker, discharge to home with intermittent assist, consult for home health PT * Medical Student - Eliana Moreira - 05/29/2021 6:47 AM CDT Neurology Daily Progress Note Subjective Chief complaint of Chief Complaint Patient presents with ??? Facial Droop Interval History: No acute events overnight. Looking forward to her discharge today. Feels that heranxiety is better compared to yesterday (given fluoxetine). Hypertensive over the past 24 hours (126/111-167/105). Coreg increased to 25mg yesterday. Todays Plan: Plan for discharge home, pending stairs assessment with PT. Stroke Work Up: likely due to cardiac embolism formed 2/ Eliquis discontinuation for surgery prep.CTA head and neck with and without contrast showed R M2 branch occlusion Lab Results Component Value Date HGBA1C 6.2 (H) 05/25/2021 LDL: Lab Results Component Value Date LDLCALC 15 05/25/2021 Vessel Imaging: CTA head and neck with and without contrast showed R M2 branch occlusion PT/OT/SLT: PT Recommendation/Plan: Home with intermittent assist, Home Health PT OT Recommendation: Home Health OT, Home with family Diet Solids Recommendation: Regular / Diet Liquids Recommendations: Thin/regular Review of Systems Please refer to HPI. A 14 point review of symptoms was negative unless noted above. Current Facility-Administered Medications Medication Dose Route Frequency Provider Last Rate Last Admin ??? acetaminophen (TYLENOL) tablet 650 mg 650 mg oral Q4H PRN Yani Mcnair MD 650 mg at 05/28/21 2100 ??? ALPRAZolam (XANAX) tablet 0.5 mg 0.5 mg oral BID PRN Lennox Faustin MD 0.5 mg at 305 ??? aspirin tablet 325 mg 325 mg oral Daily Shaylee Martines NP 325 mg at 05/28/21 0809 ??? bisacodyl EC (DULCOLAX EC) tablet 10 mg 10 mg oral BID PRN Yani Mcnair MD ??? calcium carbonate (TUMS) chewable tablet 1,000 mg 400 mg of elemental calcium feeding tube BID Yani Mcnair MD 1,000 mg at 05/28/212099 ??? carvediloL (COREG) tablet 25 mg 25 mg oral BID with meals (bkfst, dinner) Diana Mcclure NP 25 mg at 05/28/21 1732 ??? dextrose (D10W) 10% bolus 250 mL 250 mL intravenous Q15 Min PRN Yani Mcnair MD ??? docusate sodium (COLACE) capsule 100 mg 100 mg oral BID Yani Mcnair MD 100 mg at 05/28/212099 ??? enoxaparin (LOVENOX) syringe 30 mg 30 mg subcutaneous Daily-2099 Lennox Faustin MD 30 mg at 05/28/212101 ??? FLUoxetine (PROzac) capsule 40 mg 40 mg oral Daily Hina Patel NP 40 mg at 05/28/21 0809 ??? [Held by Provider] furosemide (LASIX) tablet 40 mg 40 mg feeding tube Daily Yani Mcnair MD ??? labetaloL (NORMODYNE,TRANDATE) injection 10 mg 10 mg intravenous Q15 Min PRN Shaylee Martines NP Or ??? hydrALAZINE (APRESOLINE) injection 10 mg 10 mg intravenous Q15 Min PRN Shaylee Martines NP ??? insulin lispro (HumaLOG, ADMELOG) 100 unit/mL injection 2-10 Units 2-10 Units subcutaneous QID (AC & HS) Shaylee Martines NP 2 Units at 05/28/212114 ??? levothyroxine (SYNTHROID) tablet 50 mcg 50 mcg oral Daily - 0600 Mahogany Burgos NP 50 mcg at 05/28/21 0523 ??? ondansetron (ZOFRAN) injection 4 mg 4 mg intravenous Q6H PRN Yani Mcnair MD ??? oxyCODONE (ROXICODONE) tablet 5 mg 5 mg oral Q4H PRN Shaylee Martines NP 5 mg at 05/26/21 1647 ??? rosuvastatin (CRESTOR) tablet 20 mg 20 mg oral Nightly Yani Mcnair MD 20 mg at05/28/21 2100 ??? senna (SENOKOT) tablet 1 tablet 1 tablet oral BID Yani Mcnair MD 1 tablet at 05/28/21 2100 ??? sodium chloride 0.9% flush 0.5-20 mL 0.5-20 mL intra-catheter Q8H MISHA Yani Mcnair MD 10 mL at 05/28/212108 ??? sodium chloride 0.9% flush 0.5-20 mL 0.5-20 mL intra-catheter PRN Yani Mcnair MD ??? tamsulosin (FLOMAX) extended release capsule 0.4 mg 0.4 mg oral Daily with dinner Aubrey Mahogany AdrianaLM fischer 0.4 mg at 05/28/21 1732 Objective Vitals: 24hr Min/Max: Temp Min: 36.4 ??C (97.5 ??F) Max: 36.9 ??C (98.4 ??F) Pulse Min: 58 Max: 118 BP Min: 126/111 Max: 167/105 Resp Min: 12 Max: 22 SpO2 Min: 95 % Max: 100 % Most Recent: Vitals: 05/29/21 0401 BP: 151/88 Pulse: 80 Resp: 18 Temp: 36.5 ??C (97.7 ??F) SpO2: 97% Physical Exam: GENERAL:appears stated age, sitting comfortably in bed HEENT: NC/AT, MMM CV: regular rate and rhythm LUNGS: no increased work of breathing ABDOMEN: soft, nontender, nondistended EXTREMITIES: warm and well-perfused SKIN: warm and dry ?? Neurologic Exam MENTAL STATUS: Awake, alert, fully oriented x4 (to person, place, date, and reason for presentation). Serial 7s normal. Days of the week backwards normal. Memory intact. ?? LANGUAGE: Language fluent without paraphasic errors. Follows complex verbal commands. Naming intact. ?? CRANIAL NERVES: II: Pupils equal, round, and reactive to light. Visual lopes without deficit. III, IV, : Extraocular motions intact without nystagmus. No skew. No saccadic intrusions. V1-V3: Facial sensation intact to light touch bilaterally. VII: Facial movements full without asymmetry. VIII: Hearing intact bilaterally. IX, X: Palate raises symmetrically. No dysphonia. XI: Shoulder shrug intact and symmetric. XII: Tongue extends midline. ?? MOTOR: Normal bulk and tone, no pronator drift, finger taps fast. Smooth hand movements. Strength 5/5 on elbow flexion/extension, shoulder abduction, wrist flexion/extension, hip flexion/extension, knee flexion/extension, R ankle flexion/extension (L not tested due to ankle fracture) ? SENSORY: Light touch: intact and symmetric ?? REFLEXES: negative Cohn's, negative Babinski, no clonus. ? Right Left Biceps 2 2 Triceps 2 2 Brachioradialis 2 2 Patella 2 2 Achilles 2 - ?? COORDINATION: No dysmetria on [id number] bilaterally. ?? GAIT: not tested I/O last 2 completed shifts: In: 550 [P.O.:550] Out: 650 [Urine:650] No intake/output data recorded. Lab/Radiology/Diagnostic Review: Recent Labs Lab Units 05/29/21 0409 WBC K/cumm 5.0 HEMOGLOBIN g/dL 8.8* HEMATOCRIT % 28.3* PLATELETS K/cumm 259 Recent Labs Lab Units 05/25/21 2312 APTT sec 27 INR 1.2 Recent Labs Lab Units 05/29/21 0409 05/26/216 05/26/212016 SODIUM mmol/L 138 < > 136 POTASSIUM PLASMA mmol/L 4.3 < > 3.9 CHLORIDE mmol/L 105 < > 102 CO2 mmol/L 27 < > 26 ANIONGAP mmol/L 6 < > 8 GLUCOSE mg/dL 115 < > 230* POC GLUCOSE MONITOR -- < > -- BUN SERUM mg/dL 17 < > 25 CREATININE mg/dL 0.70 < > 0.91 CALCIUM mg/dL 9.6 < > 9.2 ALBUMIN g/dL -- -- 3.3* ALK PHOS Units/L -- -- 91 ALT Units/L -- -- 27 AST Units/L -- -- 16 BILIRUBIN TOTAL mg/dL -- -- 0.4 < > = values in this interval not displayed. Recent Labs Lab Units 05/29/21 0409 MAGNESIUM mg/dL 1.8 Recent Labs Lab Units 05/25/211955 HEMOGLOBIN A1C % 6.2* Recent Labs Lab Units 05/25/211955 CHOLESTEROL mg/dL 73 TRIGLYCERIDES mg/dL 104 HDL mg/dL 37* Glc range last 24hr: Recent Labs Lab Units 05/29/21 0409 05/28/21 2107 05/28/21 1702 05/28/21 1150 GLUCOSE mg/dL 115 -- -- -- POC GLUCOSE MONITOR mg/dL -- 148 108 156 Imaging: Weight-bearing XR showed unchanged displaced L fibular fracture Noncontrast head CT performed 05/27 showed no evidence of a large subcutaneous territorial ischemic infarction. Unchanged chronic left parieto-occipital infarct. Assessment/Plan Prema Pearce is a 81 y.o. female with a past medical history significant for AFib (on Eliquis, held for 1 week for lithotropsy), aortic stenosis, HTN, T2DM, HFpEF, prior PE (2019), AYAD on CPAP,hypothyroidism (on synthroid), and anxiety who presented on 05/25/21 with L facial droop and dysarthria. Last known at baseline at bedtime on 05/24. NIHSS 6 on initial assessment. NO GO for tPA. GO forthrombectomywith TICI 3 full reperfusion after 2 passes with stent retriever . ?? Impression/etiology: Stroke likely due to cardiac embolism formed 04/17 Eliquis discontinuation for surgery prep. TOAST classification: 2. Cardioembolism ?? #R MCA Stroke Work-up: - hemoglobin A1c 6.2%, LDL 15 - ECG (05/25 at 2233) showed atrial fibrillation with T wave abnormality and lengthened QT - CTA head and neck with and without contrast showed R M2 branch occlusion with 33ml penumbra in R frontal lobe without evidence of core penumbra - CT Head WO contrast 05/27 showed no evidence of a large subcutaneous territorial ischemic infarction. Unchanged chronic left parieto-occipital infarct. ? Plan: - atorvastatin 80 mg daily - Continue Coreg 25 mg BID - Anti-coagulation with Eliquis 5mg BID starting 05/29 ?? #L Malleolus Fracture -Ortho consult recommended weight bearing with CAM boot in place, outpatient follow up in 3-4 weeks -Tylenol PRN for pain -Weight-bearing XR showed unchanged displaced L fibular fracture ?? #AFib Known AFib treated outpatient with Eliquis 5mg BID and ASA 81mg. ?? -Discontinue ASA 81mg -Restart Eliquis 5mg BID on 05/29 -Continue outpatient cardiology care ?? #HTN #HFpEF Managed by periodicals clerk on outpatient basis with Coreg 25 mg BID and Lasix 40 mg qD. BPs have increased slightly over the last 24 hours. Appears euvolemic on exam ?? -Increase Coreg to 25 mg BID -Re-start Lasix 40mg qD #Anemia Hgb improved to 8.8 today (from 7.8 yesterday)? #Abnormal UA #Possible Urinary retention UA on admission was significant for 2+ blood, 2+ leukocyte esterase, 11-20 WBCs, 1+ bacteria, and hyaline casts. Suspicious for UTI, but patient denies dysuria and has remained afebrile during this admission. Urine culture showed insignificant bacterial growth ?? #AYAD -Continue to use CPAP at home. ?? #T2DM Managed outpatient with glipizide and metformin. Blood glucose managed inpatient with insulin lispro 2-10units q6h ?? -Re-start glipizide 10mg BID and metformin 20mg qD at discharge -Continue to manage blood glucose with insulin while inpatient ?? #Hypothyroidism Managed outpatient with levothyroxine 50 mcg qD. Last TSH (02/2021) was 1.34 ?? -Give levothyroxine 50mcg qD while inpatient ?? # Diet: regular # DVT prophylaxis: SCDs, 30 mg SQ Lovenox qD # Lines: 2 IVs # Lucio: none # Dispo: discharge per PT/OT recs today ?? Eliana Moreira WUIN III Cosigned by Zander Allen MD at 07/01/2021 10:10 AM CDT * Plan of Care - Zonia Sylvester RN - 05/29/2021 5:27 AM CDT Problem: Health Behavior: Goal: Understanding of discharge needs will improve Outcome: Progressing Problem: Lack of Knowledge: Goal: Understanding of ways to prevent future skin breakdown will improve Outcome: Progressing Goal: Ability to identify appropriate dietary choices will improve Outcome: Progressing Problem: Nutritional: Goal: Ability to maintain a balanced intake and output will improve Outcome: Progressing Problem: Skin Integrity: Goal: Circulation will improve to fullest extent possible Outcome: Progressing Goals: Clinical Goals for the Shift: monitor neuro checks, vital signs, promote comfort Summary: * Plan of Care - Gail Santana RN - 05/28/2021 10:49 AM CDT Problem: Activity: Goal: Mobility will improve Outcome: Progressing Problem: Skin Integrity: Goal: Risk for impaired skin integrity will decrease Outcome: Progressing Goal: Ability to demonstrate warm and dry skin will improve Outcome: Progressing Problem: Activity: Goal: Mobility will improve Outcome: Progressing Goal: Range of joint motion will improve Outcome: Progressing Problem: Safety: Goal: Will remain free from falls Outcome: Progressing Goal: Will remain free from injury from falls Outcome: Progressing Goal: Will remain free from falls and injury in home environment Outcome: Progressing Goals: Clinical Goals for the Shift: VSS, Neurochecks Q4, OOBTC, monitor I&O, promote safety and comfort Summary: VS stable. Neuro status stable. OOBTC this AM. Strict I/Os. Safety comfort and rest promoted. * Medical Student - Eliana Moreira - 05/28/2021 6:38 AM CDT Neurology Daily Progress Note Subjective Chief complaint of Chief Complaint Patient presents with ??? Facial Droop Interval History: No acute events overnight. She continues to endorse LLE pain related to her fracture. She endorses difficulty with urinary hesitancy. Denies pain with urination. Todays Plan: Follow up with PT/OT recs, continue to follow ortho recs, closely monitor urine output. Plan for discharge (likely to home) today or tomorrow depending on patient comfort. Stroke Work Up: A1c: Lab Results Component Value Date HGBA1C 6.2 (H) 05/25/2021 LDL: Lab Results Component Value Date LDLCALC 15 05/25/2021 Vessel Imaging: PT/OT/SLT: pending Diet Solids Recommendation: Regular / Diet Liquids Recommendations: Thin/regular Review of Systems Please refer to HPI. A 14 point review of symptoms was negative unless noted above. Current Facility-Administered Medications Medication Dose Route Frequency Provider Last Rate Last Admin ??? acetaminophen (TYLENOL) tablet 650 mg 650 mg oral Q4H PRN Yani Mcnair MD 650 mg at 05/27/212130 ??? ALPRAZolam (XANAX) tablet 0.5 mg 0.5 mg oral BID PRN Lennox Faustin MD 0.5 mg at 131 ??? aspirin tablet 325 mg 325 mg oral Daily Shaylee Martines NP 325 mg at 05/27/21 0804 ??? bisacodyl EC (DULCOLAX EC) tablet 10 mg 10 mg oral BID PRN Yani Mcnair MD ??? calcium carbonate (TUMS) chewable tablet 1,000 mg 400 mg of elemental calcium feeding tube BID Yani Mcnair MD 1,000 mg at 05/27/212131 ??? carvediloL (COREG) tablet 12.5 mg 12.5 mg oral BID with meals (bkfst, dinner) Shaylee Martines NP 12.5 mg at 05/27/21 1745 ??? dextrose (D10W) 10% bolus 250 mL 250 mL intravenous Q15 Min PRN Yani Mcnair MD ??? docusate sodium (COLACE) capsule 100 mg 100 mg oral BID Yani Mcnair MD 100 mg at 05/27/212130 ??? enoxaparin (LOVENOX) syringe 30 mg 30 mg subcutaneous Daily-2100 Lennox Faustin MD 30 mg at 05/27/212130 ??? FLUoxetine (PROzac) capsule 40 mg 40 mg oral Daily Hina Patel NP ??? [Held by Provider] furosemide (LASIX) tablet 40 mg 40 mg feeding tube Daily Yani Mcnair MD ??? labetaloL (NORMODYNE,TRANDATE) injection 10 mg 10 mg intravenous Q15 Min PRN Shaylee Martines NP Or ??? hydrALAZINE (APRESOLINE) injection 10 mg 10 mg intravenous Q15 Min PRN Shaylee Martines NP ??? insulin lispro (HumaLOG, ADMELOG) 100 unit/mL injection 2-10 Units 2-10 Units subcutaneous QID (AC & HS) Shaylee Martines NP 2 Units at 05/27/21 1144 ??? levothyroxine (SYNTHROID) tablet 50 mcg 50 mcg oral Daily - 0600 Mahogany Burgos NP 50 mcg at 05/28/21 0523 ??? ondansetron (ZOFRAN) injection 4 mg 4 mg intravenous Q6H PRN Yani Mcnair MD ??? oxyCODONE (ROXICODONE) tablet 5 mg 5 mg oral Q4H PRN Shaylee Martines NP 5 mg at 05/26/21 1647 ??? rosuvastatin (CRESTOR) tablet 20 mg 20 mg oral Nightly Yani Mcnair MD 20 mg at05/27/211 ??? senna (SENOKOT) tablet 1 tablet 1 tablet oral BID Yani Mcnair MD 1 tablet at 05/27/21 0804 ??? sodium chloride 0.9% flush 0.5-20 mL 0.5-20 mL intra-catheter Q8H MISHA Yani Mcnair MD 10 mL at 05/27/213 ??? sodium chloride 0.9% flush 0.5-20 mL 0.5-20 mL intra-catheter PRN Yani Mcnair MD ??? tamsulosin (FLOMAX) extended release capsule 0.4 mg 0.4 mg oral Daily with dinner Mahogany Burgos NP 0.4 mg at 05/27/21 1745 Objective Vitals: 24hr Min/Max: Temp Min: 36.3 ??C (97.3 ??F) Max: 36.9 ??C (98.5 ??F) Pulse Min: 81 Max: 127 BP Min: 109/56 Max: 149/94 Resp Min: 11 Max: 23 SpO2 Min: 94 % Max: 99 % Most Recent: Vitals: 05/28/21 0553 BP: Pulse: Resp: Temp: 36.9 ??C (98.5 ??F) SpO2: Physical Exam: I/O last 2 completed shifts: In: 1020 [P.O.:1020] Out: 1000 [Urine:1000] No intake/output data recorded. Lab/Radiology/Diagnostic Review: Recent Labs Lab Units 05/27/212047 WBC K/cumm 4.5 HEMOGLOBIN g/dL 7.8* HEMATOCRIT % 25.0* PLATELETS K/cumm 243 Recent Labs Lab Units 05/25/212311 APTT sec 27 INR 1.2 Recent Labs Lab Units 05/27/21204705/26/21211505/26/212016 SODIUM mmol/L 138 -- 136 POTASSIUM PLASMA mmol/L 4.5 -- 3.9 CHLORIDE mmol/L 105 -- 102 CO2 mmol/L 28 -- 26 ANIONGAP mmol/L 5 -- 8 GLUCOSE mg/dL 190 -- 230* POC GLUCOSE MONITOR -- < > -- BUN SERUM mg/dL 22 -- 25 CREATININE mg/dL 0.71 -- 0.91 CALCIUM mg/dL 9.4 -- 9.2 ALBUMIN g/dL -- -- 3.3* ALK PHOS Units/L -- -- 91 ALT Units/L -- -- 27 AST Units/L -- -- 16 BILIRUBIN TOTAL mg/dL -- -- 0.4 < > = values in this interval not displayed. Recent Labs Lab Units 05/27/212047 MAGNESIUM mg/dL 1.9 Recent Labs Lab Units 05/25/211955 HEMOGLOBIN A1C % 6.2* Recent Labs Lab Units 05/25/211955 CHOLESTEROL mg/dL 73 TRIGLYCERIDES mg/dL 104 HDL mg/dL 37* Glc range last 24hr: Recent Labs Lab Units 05/27/21204705/27/21 1730 05/27/21 1130 05/27/21 0743 GLUCOSE mg/dL 190 -- -- -- POC GLUCOSE MONITOR mg/dL -- 128 146 140 Imaging: Noncontrast head CT performed 05/27 showed no evidence of a large subcutaneous territorial ischemic infarction. Unchanged chronic left parieto-occipital infarct. Assessment/Plan Prema Pearce is a 81 y.o. female with a past medical history significant for AFib (on Eliquis, held for 1 week for lithotropsy), aortic stenosis, HTN, T2DM, HFpEF, prior PE (2019), AYAD on CPAP,hypothyroidism (on synthroid), and anxiety who presented on 05/25/21 with L facial droop and dysarthria. Last known at baseline at bedtime on 05/24. NIHSS 6 on initial assessment. NO GO for tPA. GO forthrombectomywith TICI 3 full reperfusion after 2 passes with stent retriever . Impression/etiology: Stroke likely due to cardiac embolism formed 04/17 Eliquis discontinuation for surgery prep. TOAST classification: 2. Cardioembolism #R MCA Stroke Work-up: - hemoglobin A1c 6.2%, LDL 15 - ECG (05/25 at 2233) showed atrial fibrillation with T wave abnormality and lengthened QT - CTA head and neck with and without contrast showed R M2 branch occlusion with 33ml penumbra in R frontal lobe without evidence of core penumbra - CT Head WO contrast 05/27 showed no evidence of a large subcutaneous territorial ischemic infarction. Unchanged chronic left parieto-occipital infarct. Plan: - atorvastatin 80 mg daily - SMART, PT/OT/CORPORATE SECURITY OFFICER consults - Tele - Continue Coreg 25 mg BID - Re-start anti-coagulation with Eliquis 5mg BID starting 05/29 #L Malleolus Fracture -Ortho consult recommended weight bearing with CAM boot in place -Tylenol PRN for pain -Obtain weight-bearing XR after working with OT/PT #AFib Known AFib treated outpatient with Eliquis 5mg BID and ASA 81mg. -Discontinue ASA 81mg -Restart Eliquis 5mg BID on 05/29 -Continue outpatient cardiology care #HTN #HFpEF Managed by periodicals clerk on outpatient basis with Coreg 25 mg BID and Lasix 40 mg qD. BPs have increased slightly over the last 24 hours. Appears euvolemic on exam -Increase Coreg to 25 mg BID -Hold Lasix 40mg qD, restart at discharge #Anemia Hgb on admission 8.2, reduced to 7.8 today. Patient denies known bleeding (hematochezia, hematemesis, hematuria, spotting, etc). May also be 2/2 dilution. -Continue to track Hgb daily -Consider GI bleed workup if Hgb continues to drop -Monitor volume status #Abnormal UA #Possible Urinary retention UA on admission was significant for 2+ blood, 2+ leukocyte esterase, 11-20 WBCs, 1+ bacteria, and hyaline casts. Suspicious for UTI, but patient denies dysuria and has remained afebrile during this admission. Abnormal findings may be attributed to recent lithotripsy.Endorsed urinary hesitancy this morning. I/Os over past 24 hours WNL. -Monitor I/Os -Consider Flomax if suspicious for urinary retention -f/u urine culture -monitor for fevers or UTI symptoms such as dysuria #AYAD Uses CPAP at home. Son is bringing her CPAP machine to the hospital tonight. -Use home CPAP while inpatient #T2DM Managed outpatient with glipizide and metformin. Blood glucose managed inpatient with insulin lispro 2-10units q6h -Hold glipizide 10mg BID and metformin 20mg qD, restart at discharge -Continue to manage blood glucose with insulin while inpatient -Monitor blood glucose #Hypothyroidism Managed outpatient with levothyroxine 50 mcg qD. Last TSH (02/2021) was 1.34 -Give levothyroxine 50mcg qD while inpatient # Diet: regular # DVT prophylaxis: SCDs, 30 mg SQ Lovenox qD # Lines: 2 IVs # Lucio: none # Dispo: discharge per PT/OT recs today or tomorrow Eliana Moreira [facility] III Cosigned by Zander Allen MD at 07/01/2021 10:10 AM CDT * Plan of Care - Miranda Clark RRT - 05/28/2021 4:46 AM CDT Pt wears and self maintains home NPPV unit. * Plan of Care - Tori Cannon RN - 05/28/2021 12:28 AM CDT Problem: Health Behavior: Goal: Understanding of discharge needs will improve Outcome: Progressing Problem: Activity: Goal: Mobility will improve Outcome: Progressing Problem: Lack of Knowledge: Goal: Understanding of ways to prevent future skin breakdown will improve Outcome: Progressing Goal: Ability to identify appropriate dietary choices will improve Outcome: Progressing Problem: Nutritional: Goal: Dietary intake will improve Outcome: Progressing Goal: Ability to maintain a balanced intake and output will improve Outcome: Progressing Problem: Skin Integrity: Goal: Risk for impaired skin integrity will decrease Outcome: Progressing Goal: Ability to demonstrate warm and dry skin will improve Outcome: Progressing Goal: Circulation will improve to fullest extent possible Outcome: Progressing Problem: Activity: Goal: Capacity to carry out activities will improve Outcome: Progressing Goal: Mobility will improve Outcome: Progressing Goal: Range of joint motion will improve Outcome: Progressing Problem: Lack of Knowledge: Goal: Verbalization of understanding the information provided will improve Outcome: Progressing Problem: Nutritional: Goal: Ability to chew and swallow food without choking will improve Outcome: Progressing Problem: Safety: Goal: Ability to remain free from injury will improve Outcome: Progressing Problem: Self-Care: Goal: Ability to participate in self-care as condition permits will improve Outcome: Progressing Goal: Verbalization of feelings and concerns over difficulty with self-care will improve Outcome: Progressing Problem: Tissue Perfusion: Goal: Neurologic status will improve Outcome: Progressing Problem: Lack of Knowledge: Goal: Ability to state ways to decrease the risk of falls will improve Outcome: Progressing Problem: Safety: Goal: Will remain free from falls Outcome: Progressing Goal: Will remain free from injury from falls Outcome: Progressing Goal: Will remain free from falls and injury in home environment Outcome: Progressing Goals: Clinical Goals for the Shift: VSS, Neurochecks Q4, OOBTC, monitor I&O, promote safety and comfort Summary: no changes * Plan of Care - Rupinder Valdez, ARMANI - 05/27/2021 6:58 PM CDT Problem: Activity: Goal: Mobility will improve Outcome: Progressing Problem: Skin Integrity: Goal: Risk for impaired skin integrity will decrease Outcome: Progressing Problem: Activity: Goal: Capacity to carry out activities will improve Outcome: Progressing Problem: Lack of Knowledge: Goal: Verbalization of understanding the information provided will improve Outcome: Progressing Goals: Clinical Goals for the Shift: VSS, Neurochecks Q4, OOBTC, monitor I&O, promote safety and comfort * Plan of Care - Rachel Leach RN - 05/27/2021 2:56 PM CDT Case Management unable to perform initial interview, for discharge planning. Patient and or family unavailable at this time. CM will attempt at a later time. If any discharge planning needs arise, please call covering rehabilitation caseworker. Patient admitted with: STROKE Rachel Leach Crew Car Driver Available from 8a.m.-4:30p.m. For emergency needs from 4:31p.m. - 7:59a.m., please call the director of category management For weekend/holiday needs from 8:00a.m. - 4:30p.m., please call the Weekend Quality Control Assistant. * Medical Student - Eliana Moreira - 05/27/2021 2:31 PM CDT Images from the original note were not included. STROKE ADMISSION HISTORY AND PHYSICAL Date: 05/27/21 CARE TEAM Patient: Prema Pearce Primary Care Physician: Ryann Galdamez PA Room: [id number] Attending Physician: @ATTENDING@ Subjective SUBJECTIVE Prema Pearce is a 81 y.o. female with a past medical history significant for AFib (on Eliquis, held for 1 week for lithotropsy), aortic stenosis, HTN, T2DM, HFpEF, prior PE (2019), AYAD on CPAP,hypothyroidism (on synthroid), and anxiety who presented on 05/25/21 with L facial droop and dysarthria. . She discontinued Eliquis about 1 week prior to this episode in preparation for a lithotropsy. She was placed on Eliquis in 2019 after developing PE. At baseline, she lives alone and is fully independent in all ADLs/IADLs. She drives and manages her own medications. She has no known neurologic deficits at baseline Last known at baseline at bedtime on 05/24/21. She first noticed neurologic symptoms on the morning of 05/25. Upon arrival to the [facility] ED, blood pressure 141/112, blood glucose 130. Initial labs notablefor elevated PT (13.8) and Hgb 8.2. ECG showing AFib. Troponin I high-sensitivity 22. Urinalysis 11-20 WBC, 2+ leukocyte esterase, and 1+ bacteria. Urine drug screen negative. NIHSS 6 on initial assessment (due to L facial droop, dysarthria, L superior quadrantinopia, L sensory deficits, and L extinction). CT without contrast showed chronic L parieto-occipital infarct. CTA/CTP showing R M2 branch occlusion, penumbra 33 mL with no evidence of core infarct in the R frontallobe. NO GO for tPA due to outside of window. GO for thrombectomy with TICI 3 full reperfusion after 2 passes with stent retriever. The procedure was complicated by AFib with RVR (max HR in the 130s). She received 12.5 mg intra-arterial Verapamil. She was intubated and sedated for the procedure. After transfer to the NNICU, she remained sedated on 30 of Propofol with Rajendra at 1.2. She was weanedoff sedation and extubated without incident. Weaned to room air on 05/26. She was placed on ASA 325 and SQ lovenox on 05/26. She remained in AFib and was re-started on home coreg at a reduced dose, forimprovement of HR from 110-130s to 70-90s. Ortho was consulted on 05/26 for complaint of LLE pain, discovered a minimally displaced fracture of the L lateral malleolus. Being managed with CAM boot. Past Medical/Surgical History Past Medical History: Diagnosis Date ??? Adrenal [...] Pulmonary embolism (HCC) ??? Sleep apnea ??? Zenker's diverticulum Past Surgical History: Procedure Laterality Date ??? BREAST LUMPECTOMY ??? CHOLECYSTECTOMY ??? HAND SURGERY Left plate & screws ??? HYSTERECTOMY ??? INCISION AND DRAINAGE FEMUR Left 05/22/2019 Home Medications HOME MEDICATIONS : ALPRAZolam (XANAX) 0.5 mg tablet TID PRN aspirin 81 mg enteric coated tablet qD CALCIUM CARBONATE ORAL qD carvediloL (COREG) 25 mg tablet BID Eliquis 5 mg tablet BID furosemide (LASIX) 40 mg tablet qD glipiZIDE (GLUCOTROL) 10 mg tablet BID levothyroxine (SYNTHROID) 50 mcg tablet qD metFORMIN (GLUCOPHAGE) 500 mg tablet BID rosuvastatin (CRESTOR) 20 mg tablet qD zolpidem (AMBIEN) 10 mg tablet qD Current Facility-Administered Medications Medication Dose Route Frequency Provider Last Rate Last Admin ??? acetaminophen (TYLENOL) tablet 650 mg 650 mg oral Q4H PRN Yani Mcnair MD 650 mg at 05/27/21 0004 ??? ALPRAZolam (XANAX) tablet 0.5 mg 0.5 mg oral BID PRN Lennox Faustin MD 0.5 mg at 121 ??? aspirin tablet 325 mg 325 mg oral Daily Shaylee Martines NP 325 mg at 05/27/21 0804 ??? bisacodyl EC (DULCOLAX EC) tablet 10 mg 10 mg oral BID PRN Yani Mcnair MD ??? calcium carbonate (TUMS) chewable tablet 1,000 mg 400 mg of elemental calcium feeding tube BID Yani Mcnair MD 1,000 mg at 05/27/21 0804 ??? carvediloL (COREG) tablet 12.5 mg 12.5 mg oral BID with meals (bkfst, dinner) Shaylee Martines NP 12.5 mg at 05/27/21 0804 ??? dextrose (D10W) 10% bolus 250 mL 250 mL intravenous Q15 Min PRN Yani Mcnair MD ??? docusate sodium (COLACE) capsule 100 mg 100 mg oral BID Yani Mcnair MD 100 mg at 05/27/21 0804 ??? enoxaparin (LOVENOX) syringe 30 mg 30 mg subcutaneous Daily-2100 Lennox Faustin MD 30 mg at 05/26/212120 ??? FLUoxetine (PROzac) capsule 40 mg 40 mg oral Daily Hina Patel NP ??? [Held by Provider] furosemide (LASIX) tablet 40 mg 40 mg feeding tube Daily Yani Mcnair MD ??? labetaloL (NORMODYNE,TRANDATE) injection 10 mg 10 mg intravenous Q15 Min PRN Shaylee Martines NP Or ??? hydrALAZINE (APRESOLINE) injection 10 mg 10 mg intravenous Q15 Min PRN Shaylee Martines NP ??? insulin lispro (HumaLOG, ADMELOG) 100 unit/mL injection 2-10 Units 2-10 Units subcutaneous QID (AC & HS) Shaylee Martines NP 2 Units at 05/27/21 1144 ??? [START ON 05/28/2021] levothyroxine (SYNTHROID) tablet 50 mcg 50 mcg oral Daily - 0600 Mahogany Burgos NP ??? ondansetron (ZOFRAN) injection 4 mg 4 mg intravenous Q6H PRN Yani Mcnair MD ??? oxyCODONE (ROXICODONE) tablet 5 mg 5 mg oral Q4H PRN Shaylee Martines NP 5 mg at 05/26/21 1647 ??? rosuvastatin (CRESTOR) tablet 20 mg 20 mg oral Nightly Yani Mcnair MD 20 mg at05/26/212120 ??? senna (SENOKOT) tablet 1 tablet 1 tablet oral BID Yani Mcnair MD 1 tablet at 05/27/21 0804 ??? sodium chloride 0.9% flush 0.5-20 mL 0.5-20 mL intra-catheter Q8H MISHA Yani Mcnair MD 10 mL at 05/26/212 ??? sodium chloride 0.9% flush 0.5-20 mL 0.5-20 mL intra-catheter PRN Yani Mcnair MD ??? tamsulosin (FLOMAX) extended release capsule 0.4 mg 0.4 mg oral Daily with dinner Mahogany Burgos NP Allergies: Allergies Allergen Reactions ??? Amlodipine Shortness of breath ??? Prasanth Inhibitors Cough Reaction: COUGH, ??? Citalopram ??? Lisinopril Social History Social History Socioeconomic History ??? Marital status: Tobacco Use ??? Smoking status: Never Smoker ??? Smokeless tobacco: Never Used Substance and Sexual Activity ??? Alcohol use: Yes Comment: 1/mo ??? Drug use: Never ??? Sexual activity: Defer Family History Family History Problem Relation Age of Onset [...] Anesthesia problems Neg Hx Review of Systems All symptoms negative except as per HPI. Objective OBJECTIVE Vitals: Arrival Vitals Temp 05/25/21 2230 36.7 ??C (98.1 ??F) Pulse 05/25/211952 86 Resp 05/25/211952 20 BP 05/25/211952 (!) 141/112 SpO2 05/25/211952 100 % Temp src 05/25/212229 Tympanic Heart Rate Source 05/25/212049 Monitor Patient Position 05/25/212229 Lying BP Location 05/25/212229 Left arm FiO2 (%) 03/12/22 2216 40 % 24hr Min/Max: Temp Min: 36.4 ??C (97.5 ??F) Max: 36.8 ??C (98.2 ??F) Pulse Min: 71 Max: 129 BP Min: 106/71 Max: 147/83 Resp Min: 10 Max: 22 SpO2 Min: 91 % Max: 100 % Most Recent : Vitals: 05/27/21 1400 BP: 127/80 Pulse: 103 Resp: 17 Temp: 36.7 ??C (98 ??F) SpO2: 96% Intake/Output Summary (Last 24 hours) at 05/27/2021 1431 Last data filed at 05/27/2021 1300 Gross per 24 hour Intake 950 ml Output 1600 ml Net -650 ml Physical Exam GENERAL:appears stated age, sitting comfortably in bed HEENT: NC/AT, MMM CV: regular rate and rhythm LUNGS: no increased work of breathing ABDOMEN: soft, nontender, nondistended EXTREMITIES: warm and well-perfused SKIN: warm and dry Neurologic Exam MENTAL STATUS: Awake, alert, fully oriented x4 (to person, place, date, and reason for presentation). Serial 7s normal. Days of the week backwards normal. Memory intact. LANGUAGE: Language fluent without paraphasic errors. Follows complex verbal commands. Naming intact. CRANIAL NERVES: II: Pupils equal, round, and reactive to light. Some errors to finger counting in peripheral vision, consistent deficit not detected. III, IV, : Extraocular motions intact without nystagmus. No skew. No saccadic intrusions. V1-V3: Facial sensation intact to light touch bilaterally. VII: Facial movements full without asymmetry. VIII: Hearing intact bilaterally. IX, X: Palate raises symmetrically. No dysphonia. XI: Shoulder shrug intact and symmetric. XII: Tongue extends midline. MOTOR: Normal bulk and tone, no pronator drift, finger taps fast. Smooth hand movements. Bilateral intention tremor (at baseline). Strength 5/5 on elbow flexion/extension, shoulder abduction, wrist flexion/extension, hip flexion/extension, knee flexion/extension, R ankle flexion/extension (L not campos trev due to ankle fracture) SENSORY: Light touch: intact and symmetric REFLEXES: negative Cohn's, negative Babinski, no clonus. Right Left Biceps 2 2 Triceps 2 2 Brachioradialis 2 2 Patella 2 2 Achilles 2 - COORDINATION: No dysmetria on [id number] bilaterally. GAIT: not tested Lab/Radiology/Diagnostic Review: Hematology Lab History Some values may be hidden. Unless noted otherwise, only the newest values recorded on each date aredisplayed. Labs - Hematology Latest Ref Range 03/12/21 03/21/21 05/25/21 05/26/21 WBC 3.8 - 9.9 K/cumm 8.8 8.7 7.1 Total Hb, POC 11.9 - 15.5 g/dL 11.4 (A) 8.2 (A) 8.2 (A) Hct 35.6 - 45.5 % 36.0 27.0 (A) 26.8 (A) Plt 150 - 400 K/cumm 257 276 Platelets 140 - 400 Thousand/uL 333 Neutrophil abs 1.7 - 6.5 K/cumm 7.9 (A) Lymphocytes, abs 0.8 - 3.3 K/cumm 2,182 1.2 SCRIBED Hematocrit 37 - 47 % 36.7 (A) SCRIBED Hemoglobin 12 - 15 g/dL 11.7 (A) SCRIBED WBC 4.5 - 10 k/cumm 4.3 (A) SCRIBED RBC 4.2 - 5.4 m/cumm 4.25 SCRIBED Neutrophils Abs 1.3 - 6.7 k/cumm 3.5 SCRIBED Platelets 150 - 375 k/cumm 272 Some values recorded on this date have been omitted. Some abnormal values recorded on this date have been omitted. (A) Abnormal value Chem/LFT Lab History Some values may be hidden. Unless noted otherwise, only the newest values recorded on each date aredisplayed. Labs-Chem/LFT Latest Ref Range 03/12/21 03/21/21 05/25/21 05/26/21 Sodium 135 - 145 mmol/L 138 137 136 Potassium Lvl 3.5 - 5.3 mmol/L 4.2 Creatinine 0.60 - 1.10 mg/dL 0.72 0.99 0.91 Bilirubin, total 0.1 - 1.2 mg/dL 0.6 0.4 0.4 AST 10 - 45 Units/L 15 22 16 ALT 7 - 45 Units/L 12 25 27 SCRIBED Alkaline Phosphatase 38 - 126 Units/L 92 SCRIBED Alanine Transaminase (ALT) 4 - 35 Units/L 16 SCRIBED Potassium 3.4 - 5 mmol/L 4.4 SCRIBED Bilirubin 0.2 - 1.3 mg/dl 0.5 SCRIBED Creatinine 0.7 - 1 mg/dl 1 CrCl- Actual Body Weight (Cockcroft-Gault) 71.9 51 53.2 57.9 Some values recorded on this date have been omitted. Some abnormal values recorded on this date have been omitted. Comments are available for some flowsheets but are not being displayed. 05/25/21 CTA/CTP Rapid Stroke: 1. 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 No acute intracranial hemorrhage. ?? 2. Chronic left parieto-occipital infarction. ?? 05/26/21 XR L Ankle Minimally displaced fracture of the left lateral malleolus ?? 05/27/21 CT Head WO Contrast 1. No evidence of a large subcutaneous territorial ischemic infarction. Unchanged chronic left parieto-occipital infarct. ?? Assessment/Plan ASSESSMENT AND PLAN Prema Pearce is a 81 y.o. female with a past medical history significant for AFib (on Eliquis, held for 1 week for lithotropsy), aortic stenosis, HTN, T2DM, HFpEF, prior PE (2019), AYAD on CPAP,hypothyroidism (on synthroid), and anxiety who presented on 05/25/21 with L facial droop and dysarthria. Last known at baseline at bedtime on 05/24. NIHSS 6 on initial assessment. NO GO for tPA. GO forthrombectomywith TICI 3 full reperfusion after 2 passes with stent retriever . Impression/etiology: Stroke likely due to cardiac embolism formed 04/17 Eliquis discontinuation for surgery prep. TOAST classification: 2. Cardioembolism #R MCA Stroke Work-up: - hemoglobin A1c 6.2%, LDL 15 - ECG (05/25 at 2233) showed atrial fibrillation with T wave abnormality and lengthened QT - CTA head and neck with and without contrast showed R M2 branch occlusion with 33ml penumbra in R frontal lobe without evidence of core penumbra - CT Head WO contrast 05/27 showed no evidence of a large subcutaneous territorial ischemic infarction. Unchanged chronic left parieto-occipital infarct. Plan: - atorvastatin 80 mg daily - SMART, PT/OT/CORPORATE SECURITY OFFICER consults - Tele - Continue Coreg 12.5 BID (past point of permissive HTN) - No echo recommended on this admission - Re-start anti-coagulation with Eliquis 5mg BID starting 05/28, per 1-2-3-4 trial (Stroke, Apr 2021) #L Malleolus Fracture -Ortho consult recommended weight bearing with CAM boot in place -Tylenol PRN for pain -Inform ortho that she got boot -Obtain weight-bearing XR after working with OT/PT #AFib Known AFib treated outpatient with Eliquis 5mg BID and ASA 81mg. -Discontinue ASA 81mg -Restart Eliquis 5mg BID on 05/28 -Continue outpatient cardiology care #HTN #HFpEF Managed by periodicals clerk on outpatient basis with Coreg 25 mg BID and Lasix 40 mg qD. BPs have increased slightly over the last 24 hours. Appears euvolemic on exam -Increase Coreg to 25 mg BID -Hold Lasix 40mg qD, restart at discharge #Abnormal UA #Possible Urinary retention UA on admission was significant for 2+ blood, 2+ leukocyte esterase, 11-20 WBCs, 1+ bacteria, and hyaline casts. Suspicious for UTI, but patient denies dysuria and has remained afebrile during this admission. Abnormal findings may be attributed to recent lithotripsy. -f/u urine culture -monitor for fevers or UTI symptoms such as dysuria #AYAD Uses CPAP at home. Son is bringing her CPAP machine to the hospital tonight. -Use home CPAP while inpatient #T2DM Managed outpatient with glipizide and metformin. Blood glucose managed inpatient with insulin lispro 2-10units q6h -Hold glipizide 10mg BID and metformin 20mg qD, restart at discharge -Continue to manage blood glucose with insulin while inpatient -Monitor blood glucose #Hypothyroidism Managed outpatient with levothyroxine 50 mcg qD. Last TSH (02/2021) was 1.34 -Give levothyroxine 50mcg qD while inpatient # Diet: regular # DVT prophylaxis: SCDs, 30 mg SQ Lovenox qD # Lines: 2 IVs # Lucio: none # Dispo: discharge home upon stabilization Eliana HERNANDEZIN III Cosigned by Zander Allen MD at 07/01/2021 10:10 AM CDT * Significant Event - Aubrey Mahoganylaurie Wright NP - 05/27/2021 7:34 AM CDT Transfer to Stroke Neurology Note CC: R M2 occlusion s/p MT Interval Events: -- Coreg increased to 12.5 mg BID, synthroid resumed -- XR L ankle given c/o pain w/ minimally displaced fracture of the left lateral malleolus, ortho consulted, XR performed, w/ plan for non-operative management w/ WBAT LLE in CAM boot IMAGING (Most recent) NEURO IMAGIN05/25/21, 20:15 CTA of the head without and with contrast CT perfusion imaging of the head with contrast 1. Right M2 branch occlusion with 33 mL penumbra in the right frontal lobe without evidence of coreinfarct. No acute intracranial hemorrhage. 2. Chronic left parieto-occipital infarction. ?? PHYSICAL EXAM: HEENT: Mucous membranes moist, sclera anicteric. Cardiac: Irregularly irregular, rate 70s-80s. Pulmonary: Normal work of breathing. CTAB, no crackles/no wheezes. Abdomen: Non-distended in appearance, soft/non-tender to palpation. Bowel sounds present. Skin: Warm and dry, color appropriate for ethnicity. L ankle ecchymosis, mild edema and tender to palpation. NEURO EXAM Mental Status Awake, alert, eyes open spontaneously, regards, follows all commands, oriented x 3 Cranial Nerves PERRL, EOMI, VFFTC, mild L lower FD, no dysarthria Motor 5/5 BUE and BLE, no drift LLE exam limited by pain Plan by Problem # Right M2 occlusion s/p MT (TICI 3) # Chronic L parieto-occipital infarct R MCA stroke ikely 2/2 holding of Eliquis x 1 week MINE CAR DISPATCHER for elective lithotripsy. -- SBP <175, DBP <100 -- NC q4h -- continue DVT ppx -- continue ASA 325 mg daily -- continue home Crestor 20 mg daily -- Discuss timeline of re-starting Eliquis w/ stroke team -- Hgb A1c 6.2, LDL 15 -- holding off on TTE as etiology of AIS is likely cardioembolic -- SMART consult, PT/OT/CORPORATE SECURITY OFFICER # Anxiety Multiple recent life stressors, currently euthymic. -- continue home xanax 0.5mg BID PRN -- hold home ambien # L lateral malleolus fracture -- L ankle w/ pain/swelling, XR w/ minimally displaced fracture of the left lateral malleolus, ortho consulted -- f/u ortho recs: WB XR's of ankle once mobilizes, WB LLE w/ CAM walking boot in place -- PRN tylenol -- elevate # Afib -- Hold AC iso thrombectomy -- Discuss timeline for re-starting Eliquis -- continue coreg 12.5 mg BID -- continue ASA # HTN -- SBPs 103-147, MAPs 69-112 / 24h -- SBP <175, DBP<100 -- continue coreg 12.5 mg BID -- hold home Lasix # HFpEF # Moderate Most recent TTE (08/2020) w/ moderate , markedly dilated LA, hyperdynamic LV w/ EF 66%, mild TR -- appears euvolemic today -- continue coreg -- hold home Lasix -- re-start GDMT as able -- Strict I&Os # 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 RESOLVED now s/p extubation. -- 91-100% on room air, supplemental O2 for sats >92% -- IS q1h -- OOBTC # AYAD on CPAP -- continue nightly NPPV # Hypocalcemia -- continue home calcium carbonate 1g BID -- NNICU electrolyte replacement protocol -- daily BMP # Hx nephrolithiasis -- s/p lithotripsy 05/21 -- monitor UOP -- adequate pain control -- resume flomax 0.4 mg daily -- f/u urine microscopy # Nutrition/Dysphagia iso stroke -- passed CORPORATE SECURITY OFFICER for regular diet -- encourage PO intake -- continue bowel regimen # T2DM Most recent Hgb A1c 6.1% (02/2021). -- hold home Glipizide, Metformin -- ICU SSI while inpatient -- POC glucose ACHS # Hypothyroidism Most recent TSH 1.34 (02/2021). -- continue home Levothyroxine 50 mcg daily # Concern for UTI vs colonization -- CBC daily -- danielle cx for temp >/= 38.5 -- PRN tylenol for fever -- follow up UCx, currently pending ACCESS Lines ?? PIV x 2 Lucio ??? n/a VTE Prophylaxis Last Venous Doppler: None Prophylaxis: SCDs, lovenox 30 mg daily CODE STATUS: Full Code Disposition: Transfer to SDU under stroke neurology Sign-out was called to MD Katy of the stroke neurology team. All of her questions were answered. Mahogany Burgos NP Cosigned by Kylah Lilly MD at 05/28/2021 7:21 AM CDT Associated attestation - Kylah Lilly MD - 05/28/2021 7:21 AM CDT Attending attestation I have seen and examined this patient on the day of service. I have reviewed and confirmed the history, physical exam, laboratory and radiographic data with the house staff. I have reviewed and discussed my treatment plan with the ICU team and other medical/senior staff consultant staff as documented above. Kylah Lilly M.D. Attending Physician, Neurocritical System ManagerHorticultural Farmer, Department of Neurology * Plan of Care - Nita Gloria RRT - 05/27/2021 3:05 AM CDT Impression: Patient is ordered for NPPV Plan: Encourage patient to wear Cpap throughout the night * Significant Event - Yani Mcnair MD - 05/27/2021 2:21 AM CDT NNICU TO NEUROLOGY HANDOFF TOOL Primary reason for NNICU admission: R M2 occlusion s/p MT (05/25/21) Brief ICU Course: Prema Pearce is an 81 year old female with history of Afib (eliquis held x1 week for lithotropsy), moderate , HTN, T2DM, HFpEF, prior PE (2019), AYAD on CPAP, hypothyroidism, and anxiety who presented with intermittent L facial droop and dysarthria concerning for stroke. CTA demonstrated R superior division M2 occlusion (core 0, Tmax 33). NO GO for tPA as she was OOW. GO for thrombectomy w ith TICI 3 reperfusion after two passes. Patient first noticed LFD and slurred speech on the morning of 05/25. LKN evening of 05/24. Symptoms were intermittent, but became fixed at 1500 on 05/25. Family spoke with her later in the evening and called EMS. Upon arrival to the ED, code stroke was activated - NIHSS of 6 for LFD, dysarthria, L superior quadrantanopia, L sensory deficits, and L extinction. Initial HCT w/ chronic L parieto-occipital infarct. CTA demonstrated Right M2 branch occlusion, core 0, Tmax 33, in the R frontal lobe. Shewas a NO GO for tPA due to OOW. GO for thrombectomy (mRS 0) with TICI 3 reperfusion after two passes with stent retriever. The clot was reportedly very fibrous and somewhat difficult to retrieve. Theprocedure was complicated by AFib with RVR (max HR 130s); given this in conjunction with concern for development of vasospasm, she received 12.5 mg total of intra-arterial Verapamil. She was intubated for the procedure and sedated with Propofol and required initiation of Phenylephrine gtt. ?? She arrived to the NNICU intubated and sedated on 30 of Propofol with Rajendra at 1.2. She was quickly weaned off sedation and pressors and was extubated without difficulty. She was weaned to 6L via NC but further weaned to RA on the afternoon of 05/26. - Holding home Eliquis > planned to re-start on 05/27 - Started ASA 325 and SQ Lovenox on 05/26 - Continued home Crestor 20 - Remains in AFib > re-started home Coreg at reduced dose (6.25 > 12.5) for HR 110-130s (asymptomatic) > HR improved to 70-90s - SBP 100-140s, MAPs 60-100s - SpO2 91-97% on RA - Passed CORPORATE SECURITY OFFICER eval for regular diet - Complained of L ankle pain > Ortho consult > XR (05/26) w/ minimally displaced fracture of the L lateral malleolus > additional scans w/ subtle instability on stress view > managing non-operatively w/ WBAT in CAM boot - Pain controlled with tylenol, rare PO Oxy 5 - Home Xanax prn for anxiety - UA on admission w/ 2+ blood, 2+ LE, WBC 11-20, 1+ bacteria, UCx pending Active consultants: Ortho - L ankle fracture New findings that warrant follow-up and pending studies: L lateral malleolus fracture - no further imaging pending, f/u ortho recs Urine culture - pending PERTINENT physical exam findings on day of transfer: Mental Status Fully alert, briskly responsive, regards, follows all commands, oriented x 3 Cranial Nerves PERRL, EOMI, VFFTC, L lower FD, mild dysarthria Motor 5/5 BUE and BLE, no drift LLE exam limited by pain Important changes to home medications: Dose-reduced home Coreg (usually on 25 BID) > up-titrate as able HOLDING home Lasix given clinical euvolemia HOLDING home Eliquis iso thrombectomy > re-start on 05/27 HOLDING home Glipizide, Metformin, and Ambien Medications to consider stopping prior to discharge: [] New antipsychotic (started for ICU delirium): [] Other: Major problems/Plans: # Right M2 occlusion s/p MT (TICI 3) # 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 -- SBP <175, DBP <100 -- Q1h NC -- start DVT ppx -- start ASA 325 mg daily -- continue home Crestor -- Discuss timeline of re-starting Eliquis w/ stroke team -- Hgb A1c 6.2, LDL 15 -- holding off on TTE as etiology of AIS is likely cardioembolic -- SMART consult, PT/OT/CORPORATE SECURITY OFFICER # L ankle pain/swelling -- XR > minimally displaced L lateral malleolus fx -- Ortho c/s > WBAT, CAM boot, outpatient f/u -- PRN tylenol and PO oxy -- elevate # Afib -- Hold Eliquis iso thrombectomy > re-start 05/27 -- reduce dose home coreg 6.25 > 12.5 mg BID and uptitrate as BP allows -- K>4, Mg>2 -- continue ASA 325 ?? # HTN Here with SBPs 117-159, MAPs 60-100 -- goal SBP <175, DBP<100 -- resume reduced dose home Coreg -- hold home Lasix given clinical euvolemia ?? # HFpEF # Moderate Most recent TTE (08/2020) w/ moderate , markedly dilated LA, hyperdynamic LV w/ EF 66%, mild TR -- resume home Coreg > up-titrate as able -- hold home Lasix given clinical euvolemia -- re-start GDMT as able -- Strict I&Os ?? 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 # Normocytic anemia Hgb 8.2, baseline 11 -- daily CBC -- CTM # T2DM Most recent Hgb A1c 6.1% (02/2021). -- hold home Glipizide, Metformin -- ICU SSI while inpatient -- POC glucose QID (before meals and qhs) # Concern for UTI vs colonization UA on admission w/ 2+ blood, 2+ LE, WBC 11-20, 1+ bacteria -- CBC daily -- follow up UCx Best family contact: Tami Culp ([id number]) - Rehab/Ancillary Consults: [] BI (trauma patient with LOC) [] Chemical dependency [x] PT [x] OT [x] Speech [] PM&R [x] SMART (stroke patient) [] Wound care Anticoagulation therapy: [x] VTE Prophylaxis [] Heparin [x] Lovenox [x] SCDs [] IVC Filter [] Other: [] None - Reason: [x] Therapeutic Anticoagulation Indication: [] Heparin [] Lovenox [x] Other: (Re-start home Eliquis for Afib) Any previous issues with tolerating anticoagulants? [] Yes [x] No Describe: Venous duplex performed? [] Yes [x] No Current antimicrobial therapy: Note - Planned duration may be a number of days or a criterion such as while drain in place or until blood cultures negative [x] N/A - No current antimicrobial therapy Lines/drains/airways present Peripheral IV 05/25/21 18 G Right Antecubital (Active) Number of days: 2 Peripheral IV 05/25/21 18 G Left Hand (Active) Number of days: 2 External Urinary Catheter (Active) Number of days: 2 Trach size, last date change (NA if not applicable): N/A To-do list prior to transfer: Make sure the following monitors or precautions are ordered if indicated: Telemetry [x] Yes [] No Continuous pulse oximetry [x] Yes [] No AYAD precautions [x] Yes [] No Difficult airway [] Yes [x] No Trach orders/signage [] Yes [x] No Glycemic control plan [] Long acting insulin [x] SSI --> change from scheduled to AC/HS blood glucose checks [] None ----> d/c ICU insulin and blood glucose checks Central line necessary? [] Yes [x] No [] N/A Lucio catheter necessary? [] Yes [x] No [] N/A --> external urinary catheter in place [x] Discontinue K/Mg/Phos repletion order (if applicable) [x] Discontinue stress ulcer prophylaxis if no longer indicated [x] Signed & Held orders reconciled (all orders either released or discontinued) [x] Sign-out was called to John Whitaker MD of the Stroke service. QUESTIONS? Call [phone] * Plan of Care - Amy So RN - 05/26/2021 7:48 PM CDT Goals: Clinical Goals for the Shift: OOB, VS Q1H, Neuro checks Q1H, pain management Summary: stroke education provided along with close neuro and vital monitoring. Problem: Health Behavior: Goal: Understanding of discharge needs will improve Outcome: Progressing Problem: Activity: Goal: Mobility will improve Outcome: Progressing Problem: Lack of Knowledge: Goal: Understanding of ways to prevent future skin breakdown will improve Outcome: Progressing Goal: Ability to identify appropriate dietary choices will improve Outcome: Progressing Problem: Nutritional: Goal: Dietary intake will improve Outcome: Progressing Goal: Ability to maintain a balanced intake and output will improve Outcome: Progressing Problem: Skin Integrity: Goal: Risk for impaired skin integrity will decrease Outcome: Progressing Goal: Ability to demonstrate warm and dry skin will improve Outcome: Progressing Goal: Circulation will improve to fullest extent possible Outcome: Progressing Problem: Activity: Goal: Capacity to carry out activities will improve Outcome: Progressing Goal: Mobility will improve Outcome: Progressing Goal: Range of joint motion will improve Outcome: Progressing Problem: Lack of Knowledge: Goal: Verbalization of understanding the information provided will improve Outcome: Progressing Problem: Nutritional: Goal: Ability to chew and swallow food without choking will improve Outcome: Progressing Problem: Safety: Goal: Ability to remain free from injury will improve Outcome: Progressing Problem: Self-Care: Goal: Ability to participate in self-care as condition permits will improve Outcome: Progressing Goal: Verbalization of feelings and concerns over difficulty with self-care will improve Outcome: Progressing Problem: Tissue Perfusion: Goal: Neurologic status will improve Outcome: Progressing Problem: Lack of Knowledge: Goal: Ability to state ways to decrease the risk of falls will improve Outcome: Progressing Problem: Safety: Goal: Will remain free from falls Outcome: Progressing Goal: Will remain free from injury from falls Outcome: Progressing Goal: Will remain free from falls and injury in home environment Outcome: Progressing * Plan of Care - Cinthia Decker RN - 05/26/2021 1:08 PM CDT Goals: Clinical Goals for the Shift: OOB, VS Q1H, Neuro checks Q1H, pain management Summary: Problem: Health Behavior: Goal: Understanding of discharge needs will improve 05/26/2021 1309 by Cinthia Decker RN Outcome: Progressing 05/26/2021 1307 by Cinthia Decker RN Outcome: Progressing Problem: Activity: Goal: Mobility will improve 05/26/2021 1309 by Cinthia Decker RN Outcome: Progressing 05/26/2021 1307 by Cinthia Decker RN Outcome: Progressing Problem: Lack of Knowledge: Goal: Understanding of ways to prevent future skin breakdown will improve 05/26/2021 1309 by Cinthia Decker RN Outcome: Progressing 05/26/2021 1307 by Cinthia Decker RN Outcome: Progressing Goal: Ability to identify appropriate dietary choices will improve 05/26/2021 1309 by Cinthia Decker RN Outcome: Progressing 05/26/2021 1307 by Cinthia Decker RN Outcome: Progressing Problem: Nutritional: Goal: Dietary intake will improve 05/26/2021 1309 by Cinthia Decker RN Outcome: Progressing 05/26/2021 1307 by Cinthia Decker RN Outcome: Progressing Goal: Ability to maintain a balanced intake and output will improve 05/26/2021 1309 by Cinthia Decker RN Outcome: Progressing 05/26/2021 1307 by Cinhtia Decker RN Outcome: Progressing Problem: Skin Integrity: Goal: Risk for impaired skin integrity will decrease 05/26/2021 1309 by Cinthia Decker RN Outcome: Progressing 05/26/2021 1307 by Cinthia Decker RN Outcome: Progressing Goal: Ability to demonstrate warm and dry skin will improve 05/26/2021 1309 by Cinthia Decker RN Outcome: Progressing 05/26/2021 1307 by Cinthia Decker RN Outcome: Progressing Goal: Circulation will improve to fullest extent possible 05/26/2021 1309 by Cinthia Decker RN Outcome: Progressing 05/26/2021 1307 by Cinthia Decker RN Outcome: Progressing Problem: Activity: Goal: Capacity to carry out activities will improve Outcome: Progressing Goal: Mobility will improve Outcome: Progressing Goal: Range of joint motion will improve Outcome: Progressing Problem: Lack of Knowledge: Goal: Verbalization of understanding the information provided will improve Outcome: Progressing Problem: Nutritional: Goal: Ability to chew and swallow food without choking will improve Outcome: Progressing Problem: Safety: Goal: Ability to remain free from injury will improve Outcome: Progressing Problem: Self-Care: Goal: Ability to participate in self-care as condition permits will improve Outcome: Progressing Goal: Verbalization of feelings and concerns over difficulty with self-care will improve Outcome: Progressing Problem: Tissue Perfusion: Goal: Neurologic status will improve Outcome: Progressing * Post-Procedure Note - Yung Ritchie MD - 05/25/2021 10:12 PM BUSINESS DEVELOPMENT EXECUTIVE Endovascular Neurosurgery/Interventional Neuroradiology Brief Post Procedure Note Attending: Yung Ritchie MD Web Services Professional: MD Umu Sedation/Anesthesia: GETA Medications: Heparin 3000U IA, Nitroglycerin 200mcg IA, Verapamil 2.5mg IA Verapamil 10mg IA - OLIVE Contrast: [id number] Pre-Op Diagnosis: R m2 occlusion Post-Op Diagnosis: R M2 superior division occlusion TICI 3 reperfusion Procedure Performed: 1. Thrombectomy right M2 occlusion 2. IA Verapamil 3. DSA - RCCA, OLIVE 4. USG guided vascular access Access Site: R radial Procedure Findings: 1. R M2 superior division occlusion 2. Two passess stent retriever thrombectomy 3. TICI 3 reperfusion Access Site Closure: TR band Complications: None Estimated Blood Loss: 100 ml Specimens: None Condition: Stable Full report to follow. NESS DEVELOPMENT EXECUTIVE * ED Procedure Note - Kunal Dalton MD - 05/25/2021 9:13 PM CSTAssociated Order(s): Critical Care Procedure Critical Care Performed by: Kunal Dalton MD Authorized by: Kunal Dalton MD Critical care provider statement: As reflected in the history, physical exam, orders, notes, and/or MDM, I was personally present while the patient was critically ill and provided critical care services for approximately 35 minutes, excluding time involved in separately billable procedures. Critical care was necessary to treat or prevent imminent or life-threatening deterioration of the following condition(s): acute cerebrovascular accident (CVA) and severe neurologic condition Critical care was time spent by me providing the following: continuous telemetry, continuous pulse oximetry, continuous capnography and interpretation of bedside monitors, imaging, and arterial/venous lab draws frequent neurologic exams, decision regarding acute lytic therapy and initiation of stroke management Patient sent for thrombectomy I provided emergent necessary critical care medicine [...] patient to a continuous cardiac monitored bed. Kunal Dalton MD 05/25/212114 NESS DEVELOPMENT EXECUTIVE * ED Procedure Note - Kunal Dalton MD - 05/25/2021 8:38 PM CSTAssociated Order(s): ECG 12 lead Procedure ECG 12 lead Date/Time: 05/25/2021 8:38 PM Performed by: Kunal Dalton MD Authorized by: Kunal Dalton MD Rate: ECG rate: 115 ECG rate assessment: tachycardic Rhythm: Rhythm: atrial fibrillation Ectopy: Ectopy: none QRS: QRS axis: Right Conduction: Conduction: normal ST segments: ST segments: Abnormal Depression: V2 and V3 T waves: T waves: inverted Inverted: III and aVF Other findings: Other findings: prolonged qTc interval Other findings comment: QT/QTc = 378/522 ms Interpretation: Interpretation: abnormal Recommended Follow-up: Recommended follow up: further workup in the ED Kunal Dalton MD 05/25/212043 NESS DEVELOPMENT EXECUTIVE documented in this encounter Plan of Treatment Scheduled Referrals Name Type Priority Associated Diagnoses Orde r Schedule Ambulatory referral to Neurology Outpatient Referral Routine Cerebrovascular accident (CVA), unspecified mechanism (HCC) Expected: 06/12/2021 (Approximate), Expires: 05/29/2022 documented as of this encounter Procedures Procedure Name Priority Date/Time Associated Diagnosis Comments XR ANKLE LEFT 3 OR MORE VIEWS Pending Discharge 05/29/2021 12:52 PM CDT POCT GLUCOSE DEVICE Routine 05/29/2021 1 1:46 AM CDT POCT GLUCOSE DEVICE Routine 05/29/2021 7 :36 AM CDT EGFR Routine 05/29/2021 4:09 AM CDT DIFFERENTIAL AUTO Routine 05/29/2021 4:0 9 AM CDT CBC WITH AUTO DIFFERENTIAL Routine 05/29/2021 4:09 AM CDT MAGNESIUM Routine 05/29/2021 4:09 AM CDT BASIC METABOLIC PANEL Routine 05/29/2021 4:09 AM CDT POCT GLUCOSE DEVICE Routine 05/28/2021 9 :07 PM CDT POCT GLUCOSE DEVICE Routine 05/28/2021 5 :02 PM CDT XR ANKLE LEFT 3 OR MORE VIEWS IP Routine 05/28/2021 4:53 PM CDT POCT GLUCOSE DEVICE Routine 05/28/2021 1 1:50 AM CDT POCT GLUCOSE DEVICE Routine 05/28/2021 7 :[address] HEAD WO CONTRAST Timed 05/28/2021 5 :03 AM CDT EGFR Routine 05/27/2021 8:48 PM CDT DIFFERENTIAL AUTO Routine 05/27/2021 8:4 8 PM CDT IRON PROFILE W/ IBC Routine 05/27/2021 8 :48 PM CDT CBC WITH AUTO DIFFERENTIAL Routine 05/27/2021 8:48 PM CDT TRANSFERRIN Routine 05/27/2021 8:48 PM CDT MAGNESIUM Routine 05/27/2021 8:48 PM CDT FERRITIN Routine 05/27/2021 8:48 PM CDT BASIC METABOLIC PANEL Routine 05/27/2021 8:48 PM CDT POCT GLUCOSE DEVICE Routine 05/27/2021 5 :30 PM CDT POCT GLUCOSE DEVICE Routine 05/27/2021 1 1:30 AM CDT POCT GLUCOSE DEVICE Routine 05/27/2021 7 :43 AM CDT POCT GLUCOSE DEVICE Routine 05/27/2021 6 :00 AM CDT POCT GLUCOSE DEVICE Routine 05/26/2021 9 :16 PM CDT EGFR Timed 05/26/2021 8:17 PM CDT CBC WITHOUT DIFFERENTIAL Routine 05/26/2021 8:17 PM CDT PHOSPHORUS Timed 05/26/2021 8:17 PM CDT MAGNESIUM Timed 05/26/2021 8:17 PM CDT COMPREHENSIVE METABOLIC PANEL Timed 05/26/2021 8:17 PM CDT XR ANKLE LEFT 2 VIEWS ED Urgent/IP Urgent 05/26/2021 6:18 PM CDT XR TIBIA FIBULA LEFT 2 VIEWS ED Urgent/IP Urgent 05/26/2021 6:18 PM CDT XR FOOT LEFT 3 OR MORE VIEWS ED Urgent/IP Urgent 05/26/2021 6:17 PM CDT POCT GLUCOSE DEVICE Routine 05/26/2021 5 :21 PM CDT XR ANKLE LEFT 3 OR MORE VIEWS IP Routine 05/26/2021 1:33 PM CDT POCT GLUCOSE DEVICE Routine 05/26/2021 1 1:37 AM CDT POCT GLUCOSE DEVICE Routine 05/26/2021 6 :05 AM CDT POCT GLUCOSE DEVICE Routine 05/26/2021 1 2:49 AM BUSINESS DEVELOPMENT EXECUTIVE EXTUBATION Routine 05/25/2021 11:23 PM BUSINESS DEVELOPMENT EXECUTIVE TROPONIN I HIGH-SENSITIVITY 2-HOUR Timed 05/25/2021 11:12 PM BUSINESS DEVELOPMENT EXECUTIVE EGFR STAT 05/25/2021 11:12 PM BUSINESS DEVELOPMENT EXECUTIVE APTT STAT 05/25/2021 11:12 PM BUSINESS DEVELOPMENT EXECUTIVE PROTIME-INR STAT 05/25/2021 11:12 PM BUSINESS DEVELOPMENT EXECUTIVE CBC WITHOUT DIFFERENTIAL STAT 05/25/2021 11:12 PM BUSINESS DEVELOPMENT EXECUTIVE TYPE AND SCREEN STAT 05/25/2021 11:12 PM BUSINESS DEVELOPMENT EXECUTIVE PHOSPHORUS STAT 05/25/2021 11:12 PM BUSINESS DEVELOPMENT EXECUTIVE MAGNESIUM STAT 05/25/2021 11:12 PM BUSINESS DEVELOPMENT EXECUTIVE COMPREHENSIVE METABOLIC PANEL STAT 05/25/2021 11:12 PM BUSINESS DEVELOPMENT EXECUTIVE ECG 12-LEAD STAT 05/25/2021 10:33 PM BUSINESS DEVELOPMENT EXECUTIVE POCT GLUCOSE DEVICE Routine 05/25/2021 1 0:27 PM BUSINESS DEVELOPMENT EXECUTIVE PERCUTANEOUS ARTERIAL THROMBECTOMY, INTRACRANIAL IP Routine 05/25/2021 10:13 PM BUSINESS DEVELOPMENT EXECUTIVE ND CRITICAL CARE ILL/INJURED PATIENT INIT 30-74 MIN Routine 05/25/2021 9:13 PM BUSINESS DEVELOPMENT EXECUTIVE URINALYSIS AND REFLEX TO MICROSCOPIC AND CULTURE Routine 05/25/2021 8:44 PM BUSINESS DEVELOPMENT EXECUTIVE DRUGS OF ABUSE SCREEN, URINE WITHOUT CONFIRMATION STAT 05/25/2021 8:44 PM BUSINESS DEVELOPMENT EXECUTIVE URINALYSIS, MICROSCOPIC ONLY Routine 05/25/2021 8:44 PM BUSINESS DEVELOPMENT EXECUTIVE URINE CULTURE Routine 05/25/2021 8:44 PM BUSINESS DEVELOPMENT EXECUTIVE XR CHEST 1 VIEW ED Urgent/IP Urgent 05/25/2021 8:43 PM BUSINESS DEVELOPMENT EXECUTIVE ECG 12-LEAD STAT 05/25/2021 8:38 PM BUSINESS DEVELOPMENT EXECUTIVE INFLUENZA A/B, RSV, AND COVID-19 PCR Routine 05/25/2021 8:19 PM BUSINESS DEVELOPMENT EXECUTIVE CTA/CTP RAPID STROKE Critical/Life-Th reatening 05/25/2021 8:15 PM BUSINESS DEVELOPMENT EXECUTIVE TROPONIN I HIGH-SENSITIVITY SERIES (BASELINE, 2HR, 4HR, 6HR) STAT 05/25/2021 7:56 PM BUSINESS DEVELOPMENT EXECUTIVE EGFR STAT 05/25/2021 7:56 PM BUSINESS DEVELOPMENT EXECUTIVE DIFFERENTIAL AUTO STAT 05/25/2021 7:5 6 PM BUSINESS DEVELOPMENT EXECUTIVE HEPARIN ANTI FACTOR XA ACTIVITY STAT 05/25/2021 7:56 PM BUSINESS DEVELOPMENT EXECUTIVE CBC WITH AUTO DIFFERENTIAL STAT 05/25/2021 7:56 PM BUSINESS DEVELOPMENT EXECUTIVE APTT STAT 05/25/2021 7:56 PM BUSINESS DEVELOPMENT EXECUTIVE HEMOGLOBIN A1C STAT 05/25/2021 7:56 PM BUSINESS DEVELOPMENT EXECUTIVE LIPID PANEL STAT 05/25/2021 7:56 PM BUSINESS DEVELOPMENT EXECUTIVE BASIC METABOLIC PANEL STAT 05/25/2021 7:56 PM BUSINESS DEVELOPMENT EXECUTIVE POCT GLUCOSE DEVICE Routine 05/25/2021 7 :55 PM BUSINESS DEVELOPMENT EXECUTIVE POCT PROTHROMBIN TIME, WHOLE BLOOD Routine 05/25/2021 7:53 PM BUSINESS DEVELOPMENT EXECUTIVE documented in this encounter Results * XR Ankle Left 3 or More Views (05/29/2021 12:52 PM CDT) Anatomical Region Laterality Modality Lower Extremities, Ankle Left Compute d Radiography 05/29/2021 1:27 PM CDT Impressions 05/29/2021 1:27 PM CDT 1. Unchanged mildly displaced left distal fibular fracture. 2. No definite widening of the medial clear space or distal tibiofibular syndesmosis with weightbearing. Electronically signed by: Onur Powell M.D. Narrative 05/29/2021 1:27 PM CDT EXAM: 1. ??XR ANKLE LEFT 3 OR MORE VIEWS HISTORY: Left fibular fracture COMPARISON: Radiographs 05/28/2021 FINDINGS: 3 weightbearing radiographs of the left ankle are submitted for interpretation. Unchanged mildly displaced left distal fibular fracture at the level of the tibial plafond. No definite widening of the medial clear space or distal tibiofibular syndesmosis. There is a calcaneal plantar spur. Vascular calcifications and os trigonum are present. There is lateral predominant ankle soft tissue swelling. Procedure Note Onur Powell MD - 05/29/2021 EXAM: 1. XR ANKLE LEFT 3 OR MORE VIEWS HISTORY: Left fibular fracture COMPARISON: Radiographs 05/28/2021 FINDINGS: 3 weightbearing radiographs of the left ankle are submitted for interpretation. Unchanged mildly displaced left distal fibular fracture at the level of the tibial plafond. No definite widening of the medial clear space or distal tibiofibular syndesmosis. There is a calcaneal plantar spur. Vascular calcifications and os trigonum are present. There is lateral predominant ankle soft tissue swelling. IMPRESSION: 1. Unchanged mildly displaced left distal fibular fracture. 2. No definite widening of the medial clear space or distal tibiofibular syndesmosis with weightbearing. Electronically signed by: Onur Powell M.D. David Mitchell MD IMG XR PROCEDURES Final Result * POCT glucose (05/29/2021 11:46 AM CDT) [facility] Signature Glucose, POC 160 70 - 199 mg/dL [facility] Blood 05/29/2021 11:4 6 AM CDT 05/29/2021 11:46 AM CDT us David Mitchell MD LAB POCT ORDERABLES - DEVICE Fin al Result [facility] Department [place] [address] * POCT glucose (05/29/2021 7:36 AM CDT) Glucose, POC 132 70 - 199 mg/dL [facility] Blood 05/29/2021 7:36 AM CDT 05/29/2021 7:36 AM CDT us David Mitchell MD LAB POCT ORDERABLES - DEVICE Fin al Result [facility] Department [place] [address] * (ABNORMAL) eGFR (05/29/2021 4:09 AM CDT) eGFR 87(L) 90 - 130 mL/min/1. 73 m2 [facility] Comment: Interpretive Data Reference Interval Normal ?>/= [...] interpretive data was last reviewed 2021. Blood 05/29/2021 4:09 AM CDT 05/29/2021 5:00 AM CDT us Mahogany Wright Aubrey CUSTOMER EXPERIENCE STRATEGIST LAB BLOOD ORDERABLES Fi nal Result [facility] Department [place] [address] * Differential, auto (05/29/2021 4:09 AM CDT) Neutrophil abs 2.7 1.7 - 6.5 K/cumm [facility] Imm gran abs 0.0 0.0 - 0.1 K/cumm [facility] Lymphocyte abs 1.8 0.8 - 3.3 K/cumm [facility] Monocyte abs 0.4 0.2 - 0.8 K/cumm [facility] Eosinophil abs 0.0 0.0 - 0.5 K/cumm [facility] Basophil abs 0.0 0.0 - 0.1 K/cumm [facility] Neutrophil pct 53.9 % [facility] Comment: Interpretive Data Percent cell count reference ranges are not reported, since discordance with absolute values may lead to misinterpretation of CBC data. Current Interpretive Data was last revised on 2017. Imm gran pct 0.2 % [facility] Comment: Interpretive Data Percent cell count reference ranges are not reported, since discordance with absolute values may lead to misinterpretation of CBC data. Current Interpretive Data was last revised on 2017. Lymphocyte pct 36.2 % [facility] Comment: Interpretive Data Percent cell count reference ranges are not reported, since discordance with absolute values may lead to misinterpretation of CBC data. Current Interpretive Data was last revised on 2017. Monocyte pct 8.7 % [facility] Comment: Interpretive Data Percent cell count reference ranges are not reported, since discordance with absolute values may lead to misinterpretation of CBC data. Current Interpretive Data was last revised on 2017. Eosinophil pct 0.6 % [facility] Comment: Interpretive Data Percent cell count reference ranges are not reported, since discordance with absolute values may lead to misinterpretation of CBC data. Current Interpretive Data was last revised on 2017. Basophil pct 0.4 % [facility] Comment: Interpretive Data Percent cell count reference ranges are not reported, since discordance with absolute values may lead to misinterpretation of CBC data. Current Interpretive Data was last revised on 2017. Blood 05/29/2021 4:09 AM CDT 05/29/2021 5:00 AM CDT Mahogany Burgos CUSTOMER EXPERIENCE STRATEGIST LAB BLOOD ORDERABLES Fi nal Result Performing Organization Address City/[facility]/ZIP Co de Phone Number [facility] [place] [address] * Magnesium (05/29/2021 4:09 AM CDT) [facility] Magnesium 1.8 1.4 - 2.5 mg/dL [facility] Blood 05/29/2021 4:09 AM CDT 05/29/2021 5:00 AM CDT Kylah Lilly MD LAB BLOOD ORDERABLES Final Resul t Performing Organization Address [facility] Co de Phone Number [facility] [place] [place] [address] * (ABNORMAL) CBC with auto differential (05/29/2021 4:09 AM CDT) [facility] WBC 5.0 3.8 - 9.9 K/cumm [facility] Hgb 8.8(L) 11.9 - 15.5 g/dL [facility] Hct 28.3(L) 35.6 - 45.5 % [facility] Plt 259 150 - 400 K/cumm [facility] MPV 9.7 9.1 - 12.3 fL [facility] RBC 3.34(L) 3.90 - 5.20 M/cumm [facility] MCV 84.7 81.3 - 96.4 fL [facility] MCH 26.3(L) 27.1 - 33.3 pg [facility] MCHC 31.1(L) 32.3 - 35.7 g/dL [facility] RDW CV 16.7(H) 11.1 - 14.9 % [facility] RDW SD 51.8(H) 35.7 - 48.1 fL [facility] NRBC abs 0.00 0.00 - 0.01 K/cumm [facility] Blood 05/29/2021 4:09 AM CDT 05/29/2021 5:00 AM CDT Mahogany Burgos NP LAB BLOOD ORDERABLES nal Result [facility] Department [place] [address] * Basic metabolic panel (05/29/2021 4:09 AM CDT) Sodium 138 135 - 145 mmol/L [facility] Potassium, pl 4.3 3.3 - 4.9 mmol/L [facility] Chloride 105 97 - 110 mmol/L [facility] CO2 27 22 - 32 mmol/L [facility] Anion gap 6 2 - 15 mmol/L [facility] BUN 17 8 - 25 mg/dL [facility] Creatinine 0.70 0.60 - 1.10 mg/dL [facility] Glucose 115 70 - 199 mg/dL [facility] Comment: Interpretive Data Fasting glucose [...] classification and Diagnosis of Diabetes Diabetes Care 2017;40 (Suppl. 1):S11. Current interpretive data was last revised 2017. Calcium 9.6 8.5 - 10.3 mg/dL [facility] Blood 05/29/2021 4:09 AM CDT 05/29/2021 5:00 AM CDT us Mahogany Burgos CUSTOMER EXPERIENCE STRATEGIST LAB BLOOD ORDERABLES Fi nal Result Performing Organization Address [facility] Co de Phone Number [facility] [place] [address] * POCT glucose (05/28/2021 9:07 PM CDT) Glucose, POC 148 70 - 199 mg/dL [facility] Blood 05/28/2021 9:07 PM CDT 05/28/2021 9:07 PM CDT David Mitchell MD LAB POCT ORDERABLES - DEVICE Fin al Result Performing Organization Address [facility] Co de Phone Number [facility] [place] [address] * POCT glucose (05/28/2021 5:02 PM CDT) Glucose, POC 108 70 - 199 mg/dL [facility] Blood 05/28/2021 5:02 PM CDT 05/28/2021 5:02 PM CDT us David Mitchell MD LAB POCT ORDERABLES - DEVICE Fin al Result Performing Organization Address [facility] Co de Phone Number [facility] [place] [address] * XR Ankle Left 3 or More Views (05/28/2021 4:53 PM CDT) Anatomical Region Laterality Modality Lower Extremities, Ankle Left Compute d Radiography 05/28/2021 5:00 PM CDT Impressions 05/28/2021 5:00 PM CDT Unchanged mildly displaced left distal fibular fracture. Electronically signed by: Jose R Daily M.D. Narrative 05/28/2021 5:00 PM CDT EXAMINATION: Left ankle 3 views HISTORY: Left ankle pain FINDINGS: 3 views of the left ankle were performed with comparison made to 05/26/2021. There is a mildly displaced left distal fibular fracture. There is slight widening of the medial clear space which is probably unchanged on this nonweight-bearing study. Vascular calcifications are noted. Procedure Note Jose R Daily MD PhD - 05/28/2021 EXAMINATION: Left ankle 3 views HISTORY: Left ankle pain FINDINGS: 3 views of the left ankle were performed with comparison made to 05/26/2021. There is a mildly displaced left distal fibular fracture. There is slight widening of the medial clear space which is probably unchanged on this nonweight-bearing study. Vascular calcifications are noted. IMPRESSION: Unchanged mildly displaced left distal fibular fracture. Electronically signed by: Jose R Daily M.D. us David Mitchell MD IMG XR PROCEDURES Final Result * POCT glucose (05/28/2021 11:50 AM CDT) Glucose, POC 156 70 - 199 mg/dL [facility] Blood 05/28/2021 11:5 0 AM CDT 05/28/2021 11:50 AM CDT us David Mitchell MD LAB POCT ORDERABLES - DEVICE Fin al Result Performing Organization Address [facility] de Phone Number [facility] [place] [address] * POCT glucose (05/28/2021 7:57 AM CDT) Glucose, POC 147 70 - 199 mg/dL [facility] Blood 05/28/2021 7:57 AM CDT 05/28/2021 7:57 AM CDT us David Mitchell MD LAB POCT ORDERABLES - DEVICE Fin al Result Performing Organization Address [facility] Co de Phone Number [facility] Department [place] [address] * CT Head WO Contrast (05/28/2021 5:03 AM CDT) Anatomical Region Laterality Modality Head and Neck N/A Computed Tomogra phy 05/28/2021 5:21 AM CDT Impressions 05/28/2021 8:48 AM CDT Small evolving infarct in the right grace radiata. Unchanged chronic left parieto-occipital infarct. Dictated by: Dontae Herrera The radiology attending physician has personally reviewed this study, and had reviewed and/or edited this written report and agrees with it. Electronically signed by: Abhijit Cesar M.D. 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 TECHNIQUE: Noncontrast CT of the brain was performed with images acquired from skull base to vertex. COMPARISON: 05/25/2021. FINDINGS: Small evolving infarct in the right grace radiata. There is no acute intracranial hemorrhage. 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 There is cerebral atrophy with expected dilation of the ventricles. There is no vascular hyperdensity of the M1 segments or basilar artery. There is no mass effect or midline shift. Bilateral lens replacements. 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 TECHNIQUE: Noncontrast CT of the brain was performed with images acquired from skull base to vertex. COMPARISON: 05/25/2021. FINDINGS: Small evolving infarct in the right grace radiata. There is no acute intracranial hemorrhage. 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 There is cerebral atrophy with expected dilation of the ventricles. There is no vascular hyperdensity of the M1 segments or basilar artery. There is no mass effect or midline shift. Bilateral lens replacements. 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 IMPRESSION: Small evolving infarct in the right grace radiata. Unchanged chronic left parieto-occipital infarct. Dictated by: Dontae Herrera The radiology attending physician has personally reviewed this study, and had reviewed and/or edited this written report and agrees with it. Electronically signed by: Abhijit Cesar M.D. us Kylah Lilly MD IMG CT PROCEDURES Final Result * (ABNORMAL) eGFR (05/27/2021 8:48 PM CDT) eGFR 86(L) 90 - 130 mL/min/1. 73 m2 [facility] Comment: Interpretive Data Reference Interval Normal ?>/= [...] interpretive data was last reviewed 2021. Blood 05/27/2021 8:48 PM CDT 05/27/2021 10:29 PM CDT us Mahogany Burgos NP LAB BLOOD ORDERABLES Fi nal Result [facility] Department [place] [address] * Differential, auto (05/27/2021 8:48 PM CDT) Neutrophil abs 2.7 1.7 - 6.5 K/cumm [facility] Imm gran abs 0.0 0.0 - 0.1 K/cumm [facility] Lymphocyte abs 1.3 0.8 - 3.3 K/cumm [facility] Monocyte abs 0.4 0.2 - 0.8 K/cumm [facility] Eosinophil abs 0.0 0.0 - 0.5 K/cumm [facility] Basophil abs 0.0 0.0 - 0.1 K/cumm [facility] Neutrophil pct 60.4 % [facility] Comment: Interpretive Data Percent cell count reference ranges are not reported, since discordance with absolute values may lead to misinterpretation of CBC data. Current Interpretive Data was last revised on 2017. Imm gran pct 0.4 % [facility] Comment: Interpretive Data Percent cell count reference ranges are not reported, since discordance with absolute values may lead to misinterpretation of CBC data. Current Interpretive Data was last revised on 2017. Lymphocyte pct 29.2 % [facility] Comment: Interpretive Data Percent cell count reference ranges are not reported, since discordance with absolute values may lead to misinterpretation of CBC data. Current Interpretive Data was last revised on 2017. Monocyte pct 9.4 % [facility] Comment: Interpretive Data Percent cell count reference ranges are not reported, since discordance with absolute values may lead to misinterpretation of CBC data. Current Interpretive Data was last revised on 2017. Eosinophil pct 0.4 % [facility] Comment: Interpretive Data Percent cell count reference ranges are not reported, since discordance with absolute values may lead to misinterpretation of CBC data. Current Interpretive Data was last revised on 2017. Basophil pct 0.2 % [facility] Comment: Interpretive Data Percent cell count reference ranges are not reported, since discordance with absolute values may lead to misinterpretation of CBC data. Current Interpretive Data was last revised on 2017. Blood 05/27/2021 8:48 PM CDT 05/27/2021 10:29 PM CDT Mahogany Burgos NP LAB BLOOD ORDERABLES Fi nal Result Performing Organization Address City/[facility]/ZIP Co de Phone Number [facility] [place] [address] * Transferrin (05/27/2021 8:48 PM CDT) Transferrin 312 200 - 360 mg/dL [facility] Blood 05/27/2021 8:48 PM CDT 05/27/2021 10:29 PM CDT Kylah Lilly MD LAB BLOOD ORDERABLES Final Resul t Performing Organization Address [facility] Co de Phone Number [facility] [place] [address] * (ABNORMAL) Iron profile w/ IBC (05/27/2021 8:48 PM CDT) Iron 21(L) 35 - 145 mcg/dL [facility] TIBC 284 250 - 400 mcg/dL [facility] Transferrin saturation 7(L) 20 - 50 % [facility] Blood 05/27/2021 8:48 PM CDT 05/27/2021 10:29 PM CDT Kylah Lilly MD LAB BLOOD ORDERABLES Final Resul t Performing Organization Address [facility] Co de Phone Number [facility] [place] [address] * Ferritin (05/27/2021 8:48 PM CDT) Ferritin 34 13 - 150 ng/mL [facility] Blood 05/27/2021 8:48 PM CDT 05/27/2021 10:29 PM CDT Kylah Lilly MD LAB BLOOD ORDERABLES Final Resul t Performing Organization Address City/[facility] Co de Phone Number [facility] [place] [address] * Magnesium (05/27/2021 8:48 PM CDT) [facility] Magnesium 1.9 1.4 - 2.5 mg/dL [facility] Blood 05/27/2021 8:48 PM CDT 05/27/2021 10:29 PM CDT Kylah Lilly MD LAB BLOOD ORDERABLES Final Resul t Performing Organization Address [facility] de Phone Number [facility] [place] [address] * (ABNORMAL) CBC with auto differential (05/27/2021 8:48 PM CDT) [facility] WBC 4.5 3.8 - 9.9 K/cumm [facility] Hgb 7.8(L) 11.9 - 15.5 g/dL [facility] Hct 25.0(L) 35.6 - 45.5 % [facility] Plt 243 150 - 400 K/cumm [facility] MPV 10.0 9.1 - 12.3 fL [facility] RBC 2.99(L) 3.90 - 5.20 M/cumm [facility] MCV 83.6 81.3 - 96.4 fL [facility] MCH 26.1(L) 27.1 - 33.3 pg [facility] MCHC 31.2(L) 32.3 - 35.7 g/dL [facility] RDW CV 16.5(H) 11.1 - 14.9 % [facility] RDW SD 50.4(H) 35.7 - 48.1 fL [facility] NRBC abs 0.00 0.00 - 0.01 K/cumm [facility] Blood 05/27/2021 8:48 PM CDT 05/27/2021 10:29 PM CDT Mahogany Burgos CUSTOMER EXPERIENCE STRATEGIST LAB BLOOD ORDERABLES Fi nal Result Performing Organization Address [facility]/ZIP Co de Phone Number [facility] Department [place] [address] * Basic metabolic panel (05/27/2021 8:48 PM CDT) [facility] Sodium 138 135 - 145 mmol/L [facility] Potassium, pl 4.5 3.3 - 4.9 mmol/L [facility] Chloride 105 97 - 110 mmol/L [facility] CO2 28 22 - 32 mmol/L [facility] Anion gap 5 2 - 15 mmol/L [facility] BUN 22 8 - 25 mg/dL [facility] Creatinine 0.71 0.60 - 1.10 mg/dL [facility] Glucose 190 70 - 199 mg/dL [facility] Comment: Interpretive Data Fasting glucose [...] classification and Diagnosis of Diabetes Diabetes Care 2017;40 (Suppl. 1):S11. Current interpretive data was last revised 2017. Calcium 9.4 8.5 - 10.3 mg/dL [facility] Blood 05/27/2021 8:48 PM CDT 05/27/2021 10:29 PM CDT Mahogany Burgos CUSTOMER EXPERIENCE STRATEGIST LAB BLOOD ORDERABLES Fi nal Result Performing Organization Address [facility] Co de Phone Number [facility] Department [place] [address] * POCT glucose (05/27/2021 5:30 PM CDT) Glucose, POC 128 70 - 199 mg/dL [facility] Blood 05/27/2021 5:30 PM CDT 05/27/2021 5:30 PM CDT Kylah Lilly MD LAB POCT ORDERABLES - DEVICE Fin al Result Performing Organization Address City/[facility]/ZIP Co de Phone Number [facility] Department [place] [address] * POCT glucose (05/27/2021 11:30 AM CDT) Glucose, POC 146 70 - 199 mg/dL [facility] Blood 05/27/2021 11:3 0 AM CDT 05/27/2021 11:30 AM CDT Kylah Lilly MD LAB POCT ORDERABLES - DEVICE Fin al Result Performing Organization Address City/[facility] Co de Phone Number [facility] [place] [address] * POCT glucose (05/27/2021 7:43 AM CDT) Glucose, POC 140 70 - 199 mg/dL [facility] Blood 05/27/2021 7:43 AM CDT 05/27/2021 7:43 AM CDT Kylah Lilly MD LAB POCT ORDERABLES - DEVICE Fin al Result Performing Organization Address City/[facility] Co de Phone Number [facility] [place] [address] * POCT glucose (05/27/2021 6:00 AM CDT) Glucose, POC 108 70 - 199 mg/dL [facility] Blood 05/27/2021 6:00 AM CDT 05/27/2021 6:00 AM CDT David Mitchell MD LAB POCT ORDERABLES - DEVICE Fin al Result Performing Organization Address City/[facility] Co de Phone Number [facility] [place] [address] * (ABNORMAL) POCT glucose (05/26/2021 9:16 PM CDT) Glucose, POC 244(H) 70 - 199 mg/dL [facility] Blood 05/26/2021 9:16 PM CDT 05/26/2021 9:16 PM CDT David Mitchell MD LAB POCT ORDERABLES - DEVICE Fin al Result Performing Organization Address [facility] de Phone Number [facility] [place] [address] * (ABNORMAL) eGFR (05/26/2021 8:17 PM CDT) Pathologist [facility] eGFR 64(L) 90 - 130 mL/min/1. 73 m2 [facility] Comment: Interpretive Data Reference Interval Normal ?>/= [...] interpretive data was last reviewed 2021. Blood 05/26/2021 8:17 PM CDT 05/26/2021 8:56 PM CDT us Yani Mcnair MD LAB BLOOD ORDERABL ES Final Result [facility] Department [place] [address] * (ABNORMAL) CBC without differential (05/26/2021 8:17 PM CDT) WBC 7.1 3.8 - 9.9 K/cumm [facility] Hgb 8.2(L) 11.9 - 15.5 g/dL [facility] Hct 26.8(L) 35.6 - 45.5 % [facility] Plt 276 150 - 400 K/cumm [facility] MPV 10.3 9.1 - 12.3 fL [facility] RBC 3.15(L) 3.90 - 5.20 M/cumm [facility] MCV 85.1 81.3 - 96.4 fL [facility] MCH 26.0(L) 27.1 - 33.3 pg [facility] MCHC 30.6(L) 32.3 - 35.7 g/dL [facility] RDW CV 16.8(H) 11.1 - 14.9 % [facility] RDW SD 52.3(H) 35.7 - 48.1 fL [facility] NRBC abs 0.00 0.00 - 0.01 K/cumm [facility] Blood 05/26/2021 8:17 PM CDT 05/26/2021 8:46 PM CDT us David Mitchell MD LAB BLOOD ORDERABLES Final Resul t Performing Organization Address City/[facility]/ZIP Co de Phone Number [facility] [place] [address] * Phosphorus (05/26/2021 8:17 PM CDT) [facility] Phosphorus, pl 3.5 2.3 - 4.5 mg/dL [facility] Blood 05/26/2021 8:17 PM CDT 05/26/2021 8:45 PM CDT Yani Mcnair MD LAB BLOOD ORDERABL ES Final Result Performing Organization Address [facility] Co de Phone Number [facility] [place] [address] * Magnesium (05/26/2021 8:17 PM CDT) [facility] Magnesium 2.1 1.4 - 2.5 mg/dL [facility] Blood 05/26/2021 8:17 PM CDT 05/26/2021 8:45 PM CDT Yani Mcnair MD LAB BLOOD ORDERABL ES Final Result Performing Organization Address [facility] Co de Phone Number [facility] [place] [address] * (ABNORMAL) Comprehensive metabolic panel (05/26/2021 8:17 PM CDT) [facility] Sodium 136 135 - 145 mmol/L [facility] Potassium, pl 3.9 3.3 - 4.9 mmol/L [facility] Chloride 102 97 - 110 mmol/L [facility] CO2 26 22 - 32 mmol/L [facility] Anion gap 8 2 - 15 mmol/L [facility] BUN 25 8 - 25 mg/dL [facility] Creatinine 0.91 0.60 - 1.10 mg/dL [facility] Glucose 230(H) 70 - 199 mg/dL [facility] Comment: Interpretive Data Fasting glucose [...] classification and Diagnosis of Diabetes Diabetes Care 2017;40 (Suppl. 1):S11. Current interpretive data was last revised 2017. Calcium 9.2 8.5 - 10.3 mg/dL [facility] Bilirubin, total 0.4 0.1 - 1.2 mg/dL [facility] Protein, pl 6.3(L) 6.5 - 8.5 g/dL [facility] Albumin 3.3(L) 3.5 - 5.0 g/dL [facility] Alk phos 91 40 - 130 Units/L [facility] ALT 27 7 - 45 Units/L [facility] AST 16 10 - 45 Units/L [facility] Blood 05/26/2021 8:17 PM CDT 05/26/2021 8:45 PM CDT Yani Mcnair MD LAB BLOOD ORDERABL ES Final Result [facility] Department [place] [address] * XR Ankle Left 2 Views (05/26/2021 6:18 PM CDT) Anatomical Region Laterality Modality Lower Extremities, Ankle Left Compute d Radiography 05/27/2021 6:13 AM CDT Impressions 05/27/2021 6:13 AM CDT 1. ??Unchanged, mildly displaced distal fibular fracture with suggestion of widening of the medial clear space and associated deltoid ligamentous injury Electronically signed by: Сергей Butts MD, PHD Narrative 05/27/2021 6:13 AM CDT EXAMINATION: Left tibia-fibula 2 views; left ankle 2 views; left foot 3+ views HISTORY: ??Distal fibular fracture FINDINGS: 2 radiographs the left leg, 2 nonweightbearing radiographs left ankle, 3 nonweightbearing radiographs the left foot are compared to prior ankle radiographs from the same day which demonstrate no change in the mildly displaced distal fibular fracture which is at the level of the tibial plafond. Ankle soft tissue swelling is noted. There is suggestion of widening of the medial clear space. The distal tibiofibular syndesmosis does not appear widened. Although spur is present. The joint spaces appear normal. A semiconstrained knee arthroplasty is incompletely evaluated. Procedure Note Сергей Butts MD PhD - 05/27/2021 EXAMINATION: Left tibia-fibula 2 views; left ankle 2 views; left foot 3+ views HISTORY: Distal fibular fracture FINDINGS: 2 radiographs the left leg, 2 nonweightbearing radiographs left ankle, 3 nonweightbearing radiographs the left foot are compared to prior ankle radiographs from the same day which demonstrate no change in the mildly displaced distal fibular fracture which is at the level of the tibial plafond. Ankle soft tissue swelling is noted. There is suggestion of widening of the medial clear space. The distal tibiofibular syndesmosis does not appear widened. Although spur is present. The joint spaces appear normal. A semiconstrained knee arthroplasty is incompletely evaluated. IMPRESSION: 1. Unchanged, mildly displaced distal fibular fracture with suggestion of widening of the medial clear space and associated deltoid ligamentous injury Electronically signed by: Сергей Butts MD, PHD David Mitchell MD IMG XR PROCEDURES Final Result * XR Tibia Fibula Left 2 Views (05/26/2021 6:18 PM CDT) Anatomical Region Laterality Modality Lower Extremities, Lower Leg Left Com puted Radiography 05/27/2021 6:13 AM CDT Impressions 05/27/2021 6:13 AM CDT 1. ??Unchanged, mildly displaced distal fibular fracture with suggestion of widening of the medial clear space and associated deltoid ligamentous injury Electronically signed by: Сергей Butts MD, PHD Narrative 05/27/2021 6:13 AM CDT EXAMINATION: Left tibia-fibula 2 views; left ankle 2 views; left foot 3+ views HISTORY: ??Distal fibular fracture FINDINGS: 2 radiographs the left leg, 2 nonweightbearing radiographs left ankle, 3 nonweightbearing radiographs the left foot are compared to prior ankle radiographs from the same day which demonstrate no change in the mildly displaced distal fibular fracture which is at the level of the tibial plafond. Ankle soft tissue swelling is noted. There is suggestion of widening of the medial clear space. The distal tibiofibular syndesmosis does not appear widened. Although spur is present. The joint spaces appear normal. A semiconstrained knee arthroplasty is incompletely evaluated. Procedure Note Сергей Butts MD PhD - 05/27/2021 EXAMINATION: Left tibia-fibula 2 views; left ankle 2 views; left foot 3+ views HISTORY: Distal fibular fracture FINDINGS: 2 radiographs the left leg, 2 nonweightbearing radiographs left ankle, 3 nonweightbearing radiographs the left foot are compared to prior ankle radiographs from the same day which demonstrate no change in the mildly displaced distal fibular fracture which is at the level of the tibial plafond. Ankle soft tissue swelling is noted. There is suggestion of widening of the medial clear space. The distal tibiofibular syndesmosis does not appear widened. Although spur is present. The joint spaces appear normal. A semiconstrained knee arthroplasty is incompletely evaluated. IMPRESSION: 1. Unchanged, mildly displaced distal fibular fracture with suggestion of widening of the medial clear space and associated deltoid ligamentous injury Electronically signed by: Сергей Butts MD, PHD David Mitchell MD IMG XR PROCEDURES Final Result * XR Foot Left 3 or More Views (05/26/2021 6:17 PM CDT) Anatomical Region Laterality Modality Lower Extremities, Foot Left Computed Radiography 05/27/2021 6:13 AM CDT Impressions 05/27/2021 6:13 AM CDT 1. ??Unchanged, mildly displaced distal fibular fracture with suggestion of widening of the medial clear space and associated deltoid ligamentous injury Electronically signed by: Сергей Butts MD, PHD Narrative 05/27/2021 6:13 AM CDT EXAMINATION: Left tibia-fibula 2 views; left ankle 2 views; left foot 3+ views HISTORY: ??Distal fibular fracture FINDINGS: 2 radiographs the left leg, 2 nonweightbearing radiographs left ankle, 3 nonweightbearing radiographs the left foot are compared to prior ankle radiographs from the same day which demonstrate no change in the mildly displaced distal fibular fracture which is at the level of the tibial plafond. Ankle soft tissue swelling is noted. There is suggestion of widening of the medial clear space. The distal tibiofibular syndesmosis does not appear widened. Although spur is present. The joint spaces appear normal. A semiconstrained knee arthroplasty is incompletely evaluated. Procedure Note Сергей Butts MD PhD - 05/27/2021 EXAMINATION: Left tibia-fibula 2 views; left ankle 2 views; left foot 3+ views HISTORY: Distal fibular fracture FINDINGS: 2 radiographs the left leg, 2 nonweightbearing radiographs left ankle, 3 nonweightbearing radiographs the left foot are compared to prior ankle radiographs from the same day which demonstrate no change in the mildly displaced distal fibular fracture which is at the level of the tibial plafond. Ankle soft tissue swelling is noted. There is suggestion of widening of the medial clear space. The distal tibiofibular syndesmosis does not appear widened. Although spur is present. The joint spaces appear normal. A semiconstrained knee arthroplasty is incompletely evaluated. IMPRESSION: 1. Unchanged, mildly displaced distal fibular fracture with suggestion of widening of the medial clear space and associated deltoid ligamentous injury Electronically signed by: Сергей Butts MD, PHD David Mitchell MD IMG XR PROCEDURES Final Result * POCT glucose (05/26/2021 5:21 PM CDT) Glucose, POC 117 70 - 199 mg/dL [facility] Blood 05/26/2021 5:21 PM CDT 05/26/2021 5:21 PM CDT us David Mitchell MD LAB POCT ORDERABLES - DEVICE Fin al Result [facility] Department [place] [address] * XR Ankle Left 3 or More Views (05/26/2021 1:33 PM CDT) Anatomical Region Laterality Modality Lower Extremities, Ankle Left Compute d Radiography 05/26/2021 2:35 PM CDT Impressions 05/26/2021 3:10 PM CDT Minimally displaced fracture of the left lateral malleolus Dictated by: Juan Chavez M.D. The radiology attending physician has personally reviewed this study, and had reviewed and/or edited this written report and agrees with it. Electronically signed by: Shelton Fagan M.D., Ph.D Narrative 05/26/2021 3:10 PM CDT EXAMINATION: XR ANKLE LEFT 3 OR MORE VIEWS HISTORY: Fall COMPARISON: None. FINDINGS: There is a minimally displaced fracture of the left lateral malleolus. There is soft tissue swelling, most prominently laterally. Dystrophic calcifications of the distal lower leg. Plantar calcaneal heel spur. Procedure Note Shelton Fagan MD PhD - 05/26/2021 EXAMINATION: XR ANKLE LEFT 3 OR MORE VIEWS HISTORY: Fall COMPARISON: None. FINDINGS: There is a minimally displaced fracture of the left lateral malleolus. There is soft tissue swelling, most prominently laterally. Dystrophic calcifications of the distal lower leg. Plantar calcaneal heel spur. IMPRESSION: Minimally displaced fracture of the left lateral malleolus Dictated by: Juan Chavez M.D. The radiology attending physician has personally reviewed this study, and had reviewed and/or edited this written report and agrees with it. Electronically signed by: Shelton Fagan M.D., Ph.D David Mitchell MD IMG XR PROCEDURES Final Result * POCT glucose (05/26/2021 11:37 AM CDT) [facility] Signature Glucose, POC 126 70 - 199 mg/dL [facility] Blood 05/26/2021 11:3 7 AM CDT 05/26/2021 11:37 AM CDT us David Mitchell MD LAB POCT ORDERABLES - DEVICE Fin al Result Performing Organization Address [facility] [place] [address] * POCT glucose (05/26/2021 6:05 AM CDT) Glucose, POC 159 70 - 199 mg/dL [facility] Blood 05/26/2021 6:05 AM CDT 05/26/2021 6:05 AM CDT us David Mitchell MD LAB POCT ORDERABLES - DEVICE Fin al Result Performing Organization Address [facility] [place] [address] * POCT glucose (05/26/2021 12:49 AM BUSINESS DEVELOPMENT EXECUTIVE) Glucose, POC 189 70 - 199 mg/dL [facility] Blood 05/26/2021 12:4 9 AM BUSINESS DEVELOPMENT EXECUTIVE 05/26/2021 12:49 AM BUSINESS DEVELOPMENT EXECUTIVE us David Mitchell MD LAB POCT ORDERABLES - DEVICE Fin al Result Performing Organization Address [facility] [place] [address] * (ABNORMAL) eGFR (05/25/2021 11:12 PM BUSINESS DEVELOPMENT EXECUTIVE) eGFR 58(L) 90 - 130 mL/min/1. 73 m2 [facility] Comment: Interpretive Data Reference Interval Normal ?>/= [...] interpretive data was last reviewed 2021. Blood 05/25/2021 11:1 2 PM BUSINESS DEVELOPMENT EXECUTIVE 05/26/2021 12:15 AM BUSINESS DEVELOPMENT EXECUTIVE Yani Mcnair MD LAB BLOOD ORDERABL ES Final Result [facility] Department [place] [address] * (ABNORMAL) Protime-INR (05/25/2021 11:12 PM BUSINESS DEVELOPMENT EXECUTIVE) PT 13.8(H) 9.5 - 13.6 sec [facility] INR 1.2 0.9 - 1.2 [facility] Comment: Interpretive data Oral anticoagulant therapeutic ranges: Venous thromboembolism prophylaxis or treatment: 2.0-3.0 CARDIOLOGY Standard range: 2.0-3.0 High-intensity range: 2.5-3.5 Refer to indication-specific guidelines for appropriate target ranges for prosthetic heart valve replacement. Current interpretive data was last revised on 2019. Blood 05/25/2021 11:1 2 PM BUSINESS DEVELOPMENT EXECUTIVE 05/26/2021 12:42 AM BUSINESS DEVELOPMENT EXECUTIVE Yani Mcnair MD LAB BLOOD ORDERABL ES Final Result Performing Organization Address [facility] [place] [address] * aPTT (05/25/2021 11:12 PM BUSINESS DEVELOPMENT EXECUTIVE) aPTT 27 27 - 37 sec [facility] Comment: Interpretive Data Therapeutic heparin range: 60.0 - 94.0 seconds. Based on correlation with therapeutic heparin activity range of 0.3-0.7 Units/mL. Current interpretive data was last revised on 2020. Blood 05/25/2021 11:1 2 PM BUSINESS DEVELOPMENT EXECUTIVE 05/26/2021 12:42 AM BUSINESS DEVELOPMENT EXECUTIVE Yani Mcnair MD LAB BLOOD ORDERABL ES Final Result Performing Organization Address [facility] [place] [address] * Type and screen (05/25/2021 11:12 PM BUSINESS DEVELOPMENT EXECUTIVE) Pathologist [facility] Gian, indirect Negative [facility] ABO Rh O Positive [facility] Blood 05/25/2021 11:1 2 PM BUSINESS DEVELOPMENT EXECUTIVE 05/26/2021 12:26 AM BUSINESS DEVELOPMENT EXECUTIVE Narrative [facility] - 05/26/2021 1:45 AM BUSINESS DEVELOPMENT EXECUTIVE Has the patient had Daratumumab or Isatuximab in the past 6 months?->Unknown Yani Mcnair MD LAB BLOOD BANK CAMPOS T ORDERABLES Final Result Performing Organization Address [facility] [place] [address] * (ABNORMAL) CBC without differential (05/25/2021 11:12 PM BUSINESS DEVELOPMENT EXECUTIVE) WBC 8.7 3.8 - 9.9 K/cumm [facility] Hgb 8.2(L) 11.9 - 15.5 g/dL [facility] Hct 27.0(L) 35.6 - 45.5 % [facility] Plt 257 150 - 400 K/cumm [facility] MPV 10.4 9.1 - 12.3 fL [facility] RBC 3.11(L) 3.90 - 5.20 M/cumm [facility] MCV 86.8 81.3 - 96.4 fL [facility] MCH 26.4(L) 27.1 - 33.3 pg [facility] MCHC 30.4(L) 32.3 - 35.7 g/dL [facility] RDW CV 16.7(H) 11.1 - 14.9 % [facility] RDW SD 52.6(H) 35.7 - 48.1 fL [facility] NRBC abs 0.00 0.00 - 0.01 K/cumm [facility] Blood 05/25/2021 11:1 2 PM BUSINESS DEVELOPMENT EXECUTIVE 05/26/2021 12:15 AM BUSINESS DEVELOPMENT EXECUTIVE Yani Mcnair MD LAB BLOOD ORDERABL ES Final Result Performing Organization Address City/[facility]/ZIP Co de Phone Number [facility] Department [place] [address] * Phosphorus (05/25/2021 11:12 PM BUSINESS DEVELOPMENT EXECUTIVE) [facility] Phosphorus, pl 4.0 2.3 - 4.5 mg/dL [facility] Blood 05/25/2021 11:1 2 PM BUSINESS DEVELOPMENT EXECUTIVE 05/26/2021 12:15 AM BUSINESS DEVELOPMENT EXECUTIVE Yani Mcnair MD LAB BLOOD ORDERABL ES Final Result Performing Organization Address [facility] Co de Phone Number [facility] Department [place] [address] * Magnesium (05/25/2021 11:12 PM BUSINESS DEVELOPMENT EXECUTIVE) Magnesium 1.8 1.4 - 2.5 mg/dL [facility] Blood 05/25/2021 11:1 2 PM BUSINESS DEVELOPMENT EXECUTIVE 05/26/2021 12:15 AM BUSINESS DEVELOPMENT EXECUTIVE Yani Mcnair MD LAB BLOOD ORDERABL ES Final Result [facility] Department [place] [address] * (ABNORMAL) Comprehensive metabolic panel (05/25/2021 11:12 PM BUSINESS DEVELOPMENT EXECUTIVE) Pathologist [facility] Sodium 137 135 - 145 mmol/L [facility] Potassium, pl 4.0 3.3 - 4.9 mmol/L [facility] Chloride 101 97 - 110 mmol/L [facility] CO2 26 22 - 32 mmol/L [facility] Anion gap 10 2 - 15 mmol/L [facility] BUN 26(H) 8 - 25 mg/dL [facility] Creatinine 0.99 0.60 - 1.10 mg/dL [facility] Glucose 188 70 - 199 mg/dL [facility] Comment: Interpretive Data Fasting glucose [...] classification and Diagnosis of Diabetes Diabetes Care 2017;40 (Suppl. 1):S11. Current interpretive data was last revised 2017. Calcium 8.8 8.5 - 10.3 mg/dL [facility] Bilirubin, total 0.4 0.1 - 1.2 mg/dL [facility] Protein, pl 6.5 6.5 - 8.5 g/dL [facility] Albumin 3.4(L) 3.5 - 5.0 g/dL [facility] Alk phos 102 40 - 130 Units/L [facility] ALT 25 7 - 45 Units/L [facility] AST 22 10 - 45 Units/L [facility] Blood 05/25/2021 11:1 2 PM BUSINESS DEVELOPMENT EXECUTIVE 05/26/2021 12:15 AM BUSINESS DEVELOPMENT EXECUTIVE Yani Mcnair MD LAB BLOOD ORDERABL ES Final Result Performing Organization Address [facility]/ZIP Co de Phone Number [facility] [place] [address] * (ABNORMAL) Troponin I high-sensitivity 2-hour (05/25/2021 11:12 PM BUSINESS DEVELOPMENT EXECUTIVE) Trop I hs 22(H) <=17 ng/L [facility] Comment: Interpretive Data For further hscTnI resources including the diagnostic algorithm and an aid in interpretation, copy and paste this link: https://bjab.testcatalog.org/show/hsTrop-1 Current Interpretive Data last revised 2019. Trop I hs delta See Comment ng/L [facility] Comment:Inappropriate collec tion time to report a delta. Trop I hs pct delta See Comment % [facility] Comment:Inappropriate collec tion time to report a delta. Trop I hs interp See Comment [facility] Comment:Inappropriate collec tion time to report a delta. Blood 05/25/2021 11:1 2 PM BUSINESS DEVELOPMENT EXECUTIVE 05/26/2021 12:14 AM BUSINESS DEVELOPMENT EXECUTIVE Kunal Dalton MD LAB BLOOD ORDERABLES Final Result Performing Organization Address City/[facility]/ZIP Co de Phone Number [facility] [place] [address] * ECG 12 lead (05/25/2021 10:33 PM BUSINESS DEVELOPMENT EXECUTIVE) Ventricular Rate EKG/Min 87 BPM [facility] Atrial Rate 68 BPM [facility] QRS-Interval (MSEC) 102 ms [facility] QT-Interval (MSEC) 454 ms [facility] QTc 546 ms [facility] R Reynolds 79 degrees [facility] T Reynolds -35 degrees [facility] Diagnosis Atrial fibrillation T wave abnormality, consider anterolateral ischemia Prolonged QT Abnormal ECG When compared with ECG of 13-SEP-2020 09:50, T wave inversion now evident in Anterior leads QT has lengthened Confirmed by GREGORY CLINE M.D ([id number]) on 05/27/2021 1:21:56 PM [facility] 05/25/2021 10:3 3 PM BUSINESS DEVELOPMENT EXECUTIVE 05/27/2021 1:21 PM CDT us Yani Mcnair MD ECG ORDERABLES Fi nal Result Performing Organization Address [facility] Co de Phone Number [facility] * POCT glucose (05/25/2021 10:27 PM BUSINESS DEVELOPMENT EXECUTIVE) [facility] Glucose, POC 130 70 - 199 mg/dL [facility] Blood 05/25/2021 10:2 7 PM BUSINESS DEVELOPMENT EXECUTIVE 05/25/2021 10:27 PM BUSINESS DEVELOPMENT EXECUTIVE David Mitchell MD LAB POCT ORDERABLES - DEVICE Fin al Result Performing Organization Address [facility] Co de Phone Number [facility] Department [place] [address] * IR Percutaneous Arterial Thrombectomy, Intracranial (05/25/2021 10:13 PM BUSINESS DEVELOPMENT EXECUTIVE) Anatomical Region Laterality Modality Head N/A Radio Fluoroscop y 05/26/2021 11:0 8 AM CDT Impressions 05/27/2021 7:05 PM CDT 1. ??Initial angiography demonstrates a right superior M2 division occlusion. 2. ??Successful mechanical thrombectomy in the right middle cerebral artery consisting of 2 passes with a aspiration catheter and stent-retriever. 3. ??Final angiography demonstrates TICI 3 complete recanalization of the right superior M2 division. ?? These results were discussed with the Neuro ICU team after the conclusion of the procedure. Dictated by: Andrea Sanz M.D. The radiology attending physician has personally reviewed this study, and had reviewed and/or edited this written report and agrees with it. Electronically signed by: Yung Ritchie M.D. Narrative 05/27/2021 7:05 PM CDT MECHANICAL THROMBECTOMY OF THE RIGHT MIDDLE CEREBRAL ARTERY SUPERIOR M2 DIVISION CLINICAL INDICATION: Patient is a 81-year-old woman presenting with acute right M2 occlusion. PROCEDURE: 1. ??Percutaneous arterial transluminal mechanical thrombectomy and/or infusion for thrombolysis, intracranial: Aspiration and stent-retriever thrombectomy of the right superior M2 division 2. ??Endovascular intracranial prolonged administration of pharmacological agents other than for thrombolysis: verapamil in the right internal carotid artery 3. ??Cerebral angiography: Right internal carotid and right common carotid artery injections 4. ??Ultrasound-guided vascular access ATTENDING SURGEON: Yung Ritchie MD. He was present for the entire procedure. ASSISTING SURGEON(S): Andrea Sanz M.D. VESSELS ANGIOGRAMMED (in sequence): Right internal carotid and right common carotid arteries DURATION OF PROCEDURE: Approximately 66 minutes. ANESTHESIA: General. Pre-, intra-, and post-anesthesia monitoring records are available in the chart. MEDICATIONS: Radial artery cocktail: Verapamil (2.5 mg), Nitroglycerin (200 mcg), and Heparin (3000 units) verapamil IA 10 mg MATERIALS: 21-gauge needle 6-Malaysian Terumo glide sheath 16 cm and mini guidewire 90 cm Ballast 088 long sheath 125 cm 5-Malaysian Yeager 2 catheter Terumo Glidewire 138 cm RED 62 catheter and aspiration tubing Phenom 27 microcatheter Synchro 2 Standard pre-shaped 014 microwire 5 mm x 37 mm EmboTrap III stent retriever TR Band CONTRAST: Visipaque 270 70 mL TECHNIQUE: Emergency consent was obtained as no individual legally authorized to provide consent could be located within a medically appropriate timeframe. General anesthesia was provided by the Department of Anesthesiology for the duration of the case. The patient was prepared and draped in the standard sterile fashion. The femoral head was localized by fluoroscopy. The right forearm was prepped and draped in the usual fashion. Access to the vascular system was gained in the usual way by a single-wall puncture of the right radial artery at the wrist ??under ultrasound guidance. Ultrasound images demonstrated a patent vessel and were stored to PACS.. ??The 6-Malaysian Terumo glide sheath 16 cm was then introduced into the right radial artery over the mini guidewire and connected to a regulated pressurized infusion of heparinized saline. A cocktail of Verapamil (2.5 mg), Nitroglycerin (200 mcg), and Heparin (3000 units) was slowly injected into the right radial artery through the sheath over several minutes, with close monitoring of blood pressure. ??Contrast injection was performed in the right radial artery for roadmap guidance. ??A Terumo Glidewire was advanced into the brachial artery and used to exchange the 6-Malaysian radial sheath for a 90 cm Ballast 088 long sheath. ??The Ballast long sheath was advanced under fluoroscopic visualization into the right innominate artery. ??A 125 cm 5-Malaysian Yeager 2 catheter was introduced through the Ballast long sheath and using conjunction with a Terumo Glidewire to select the right common carotid artery directly from the innominate artery. ??The Ballast long sheath was advanced over the wire into the right proximal cervical internal carotid artery. Initial angiography demonstrates a right superior M2 division occlusion. A coaxial assembly of a RED 62 catheter, Phenom 27 microcatheter, and Synchro 2 microwire was introduced through the Ballast long sheath and advanced intracranially under advanced roadmap guidance. ??The microcatheter and microwire was used to select the occluded right superior M2 division. ??The RED 62 catheter was positioned near the right M1 origin. ??A 5 mm x 37 mm EmboTrap III stent retriever was through the microcatheter into the right superior M2 division. ??The microcatheter was removed over the stent retriever delivery wire. Continuous aspiration was applied to the RED 62 catheter and time was allotted for clot integration. ??With aspiration applied to both the RED 62 catheter into the Ballast long sheath, the RED 62 catheter and stent retriever was withdrawn under fluoroscopic visualization into the Ballast long sheath and ultimately out of the patient. Subsequent angiography demonstrates no significant change in the right superior M2 division occlusion. Following a similar sequence of steps as outlined above, a 2nd stent retriever pass was performed. ??The microcatheter and microwire were advanced beyond the site of the right superior M2 division. ??The RED 62 catheter was positioned in the supraclinoid internal carotid artery. ??The 5 x 37 mm EmboTrap III stent retriever was deployed across the site of the occlusion. ??The microcatheter was removed over the stent retriever delivery wire. ??Aspiration was applied to both the RED 62 catheter and to the Ballast long sheath. ??Under fluoroscopic visualization, the RED 62 catheter and stent retriever were removed as a unit into the Ballast long sheath and ultimately out of the patient. ??Subsequent angiography demonstrates complete recanalization of the right superior M2 division. ??In order to address any component of stent retriever-induced vasospasm or intimal trauma, 10 mg of verapamil was slowly infused into the right internal carotid artery over several minutes. Final angiography demonstrates TICI 3 complete recanalization of the right superior M2 division. ??The Ballast long sheath was withdrawn into the right common carotid artery where angiography demonstrated no significant atherosclerotic narrowing of the cervical carotid. The catheter was then withdrawn to near the arterial access site and removed. ??Hemostasis was achieved long sheath removal with placement of a TR band. There were no immediate complications. The patient was transported to the intensive care unit in stable neurological condition. COMPLICATIONS: There were no immediate complications. Procedure Note Yung Ritchie MD - 05/27/2021 MECHANICAL THROMBECTOMY OF THE RIGHT MIDDLE CEREBRAL ARTERY SUPERIOR M2 DIVISION CLINICAL INDICATION: Patient is a 81-year-old woman presenting with acute right M2 occlusion. PROCEDURE: 1. Percutaneous arterial transluminal mechanical thrombectomy and/or infusion for thrombolysis, intracranial: Aspiration and stent-retriever thrombectomy of the right superior M2 division 2. Endovascular intracranial prolonged administration of pharmacological agents other than for thrombolysis: verapamil in the right internal carotid artery 3. Cerebral angiography: Right internal carotid and right common carotid artery injections 4. Ultrasound-guided vascular access ATTENDING SURGEON: Yung Ritchie MD. He was present for the entire procedure. ASSISTING SURGEON(S): Andrea Sanz M.D. VESSELS ANGIOGRAMMED (in sequence): Right internal carotid and right common carotid arteries DURATION OF PROCEDURE: Approximately 66 minutes. ANESTHESIA: General. Pre-, intra-, and post-anesthesia monitoring records are available in the chart. MEDICATIONS: Radial artery cocktail: Verapamil (2.5 mg), Nitroglycerin (200 mcg), and Heparin (3000 units) verapamil IA 10 mg MATERIALS: 21-gauge needle 6-Malaysian Terumo glide sheath 16 cm and mini guidewire 90 cm Ballast 088 long sheath 125 cm 5-Malaysian Yeager 2 catheter Terumo Glidewire 138 cm RED 62 catheter and aspiration tubing Phenom 27 microcatheter Synchro 2 Standard pre-shaped 014 microwire 5 mm x 37 mm EmboTrap III stent retriever TR Band CONTRAST: Visipaque 270 70 mL TECHNIQUE: Emergency consent was obtained as no individual legally authorized to provide consent could be located within a medically appropriate timeframe. General anesthesia was provided by the Department of Anesthesiology for the duration of the case. The patient was prepared and draped in the standard sterile fashion. The femoral head was localized by fluoroscopy. The right forearm was prepped and draped in the usual fashion. Access to the vascular system was gained in the usual way by a single-wall puncture of the right radial artery at the wrist under ultrasound guidance. Ultrasound images demonstrated a patent vessel and were stored to PACS.. The 6-Malaysian Terumo glide sheath 16 cm was then introduced into the right radial artery over the mini guidewire and connected to a regulated pressurized infusion of heparinized saline. A cocktail of Verapamil (2.5 mg), Nitroglycerin (200 mcg), and Heparin (3000 units) was slowly injected into the right radial artery through the sheath over several minutes, with close monitoring of blood pressure. Contrast injection was performed in the right radial artery for roadmap guidance. A Terumo Glidewire was advanced into the brachial artery and used to exchange the 6-Malaysian radial sheath for a 90 cm Ballast 088 long sheath. The Ballast long sheath was advanced under fluoroscopic visualization into the right innominate artery. A 125 cm 5-Malaysian Yeager 2 catheter was introduced through the Ballast long sheath and using conjunction with a Terumo Glidewire to select the right common carotid artery directly from the innominate artery. The Ballast long sheath was advanced over the wire into the right proximal cervical internal carotid artery. Initial angiography demonstrates a right superior M2 division occlusion. A coaxial assembly of a RED 62 catheter, Phenom 27 microcatheter, and Synchro 2 microwire was introduced through the Ballast long sheath and advanced intracranially under advanced roadmap guidance. The microcatheter and microwire was used to select the occluded right superior M2 division. The RED 62 catheter was positioned near the right M1 origin. A 5 mm x 37 mm EmboTrap III stent retriever was through the microcatheter into the right superior M2 division. The microcatheter was removed over the stent retriever delivery wire. Continuous aspiration was applied to the RED 62 catheter and time was allotted for clot integration. With aspiration applied to both the RED 62 catheter into the Ballast long sheath, the RED 62 catheter and stent retriever was withdrawn under fluoroscopic visualization into the Ballast long sheath and ultimately out of the patient. Subsequent angiography demonstrates no significant change in the right superior M2 division occlusion. Following a similar sequence of steps as outlined above, a 2nd stent retriever pass was performed. The microcatheter and microwire were advanced beyond the site of the right superior M2 division. The RED 62 catheter was positioned in the supraclinoid internal carotid artery. The 5 x 37 mm EmboTrap III stent retriever was deployed across the site of the occlusion. The microcatheter was removed over the stent retriever delivery wire. Aspiration was applied to both the RED 62 catheter and to the Ballast long sheath. Under fluoroscopic visualization, the RED 62 catheter and stent retriever were removed as a unit into the Ballast long sheath and ultimately out of the patient. Subsequent angiography demonstrates complete recanalization of the right superior M2 division. In order to address any component of stent retriever-induced vasospasm or intimal trauma, 10 mg of verapamil was slowly infused into the right internal carotid artery over several minutes. Final angiography demonstrates TICI 3 complete recanalization of the right superior M2 division. The Ballast long sheath was withdrawn into the right common carotid artery where angiography demonstrated no significant atherosclerotic narrowing of the cervical carotid. The catheter was then withdrawn to near the arterial access site and removed. Hemostasis was achieved long sheath removal with placement of a TR band. There were no immediate complications. The patient was transported to the intensive care unit in stable neurological condition. COMPLICATIONS: There were no immediate complications. IMPRESSION: 1. Initial angiography demonstrates a right superior M2 division occlusion. 2. Successful mechanical thrombectomy in the right middle cerebral artery consisting of 2 passes with a aspiration catheter and stent-retriever. 3. Final angiography demonstrates TICI 3 complete recanalization of the right superior M2 division. These results were discussed with the Neuro ICU team after the conclusion of the procedure. Dictated by: Andrea Sanz M.D. The radiology attending physician has personally reviewed this study, and had reviewed and/or edited this written report and agrees with it. Electronically signed by: Yung Ritchie M.D. us Kunal Dalton MD IMG IR PROCEDURES Final Re sult * ND CRITICAL CARE ILL/INJURED PATIENT INIT 30-74 MIN (05/25/2021 9:13 PM BUSINESS DEVELOPMENT EXECUTIVE) Narrative Kunal Dalton MD - 05/25/2021 9:13 PM BUSINESS DEVELOPMENT EXECUTIVE Kunal Dalton MD ? 05/25/2021 ??9:15 PM Critical Care Performed by: Kunal Dalton MD Authorized by: Kunal Dalton MD Critical care provider statement: As reflected in the history, physical exam, orders, notes, and/or MDM, I was personally present while the patient was critically ill and provided critical care services for approximately 35 minutes, excluding time involved in separately billable procedures. ??Critical care was necessary to treat or prevent imminent or life-threatening deterioration of the following condition(s): ?? acute cerebrovascular accident (CVA) and severe neurologic condition ??Critical care was time spent by me providing the following: ? continuous telemetry, continuous pulse oximetry, continuous capnography and interpretation of bedside monitors, imaging, and arterial/venous lab draws ?? frequent neurologic exams, decision regarding acute lytic therapy and initiation of stroke management ?? Patient sent for thrombectomy ?? I provided emergent necessary critical care [...] patient to a continuous cardiac monitored bed. us Kunal Dalton MD IN CLINIC/BEDSIDE ORDERABL ES Final Result * Urine culture Urine (05/25/2021 8:44 PM BUSINESS DEVELOPMENT EXECUTIVE) Report Final Report: Less than 100,000 colonies/mL (clinically insignificant growth based on current clinical standards) [facility] Organism (CLINICALLY INSIGNIFICANT GROWTH [facility] Urine 05/25/2021 8:44 PM BUSINESS DEVELOPMENT EXECUTIVE 05/25/2021 10:47 PM BUSINESS DEVELOPMENT EXECUTIVE Narrative [facility] - 05/27/2021 4:28 PM CDT Urine culture reflexed based upon urinalysis results. Testing performed by [facility] ([phone]) Joseph Dallas MD LAB MICROBIOLOGY - GE NERAL ORDERABLES Final Result Performing Organization Address [facility] de Phone Number [facility] [place] [address] * (ABNORMAL) Urinalysis, microscopic only (05/25/2021 8:44 PM BUSINESS DEVELOPMENT EXECUTIVE) WBC, ur 11-20(A) 0 - 5 /HPF [facility] RBC, ur 3-5(A) 0 - 2 /HPF [facility] Epithelial cells, squamous, ur 1-5 0 - 5 /HPF [facility] Bacteria, ur 1+(A) [facility] Hyaline casts, ur 1-5 0 - 10 /LPF [facility] Culture Reflex Comment Reflex to urine culture will be performed. [facility] Urine 05/25/2021 8:44 PM BUSINESS DEVELOPMENT EXECUTIVE 05/25/2021 8:51 PM BUSINESS DEVELOPMENT EXECUTIVE us Joseph Dallas MD LAB URINE ORDERABLES Final Result Performing Organization Address [facility] de Phone Number [facility] [place] [address] * (ABNORMAL) Urinalysis reflex to microscopic and culture Urine (05/25/2021 8:44 PM BUSINESS DEVELOPMENT EXECUTIVE) Color, ur Straw Yellow [facility] Clarity, ur Clear Clear [facility] Specific gravity, ur 1.017 1.003 - 1.030 [facility] pH, urine 6.0 [facility] Protein, ur ql Trace Negative [facility] Glucose, ur ql Negative Negative [facility] Ketones, ur Negative Negative [facility] Bilirubin, ur Negative Negative [facility] Blood, ur 2+(A) Negative [facility] Urobilinogen, ur <2.0 <2.0 mg/dL [facility] Nitrite, ur Negative Negative [facility] Leukocyte esterase, ur 2+(A) Negative [facility] UA reflex comment Reflex to microscopic UA will be performed. [facility] Urine 05/25/2021 8:44 PM BUSINESS DEVELOPMENT EXECUTIVE 05/25/2021 8:51 PM BUSINESS DEVELOPMENT EXECUTIVE Narrative [facility] - 05/25/2021 9:06 PM BUSINESS DEVELOPMENT EXECUTIVE ?? Urine pH is affected by diet, medications, systemic acid-base disturbances, and renal tubular function. ??pH may affect urinary stone formation. ??For example, urine pH below 6.0 may help reduce the tendency for calcium phosphate stones and pH greater than 6.0 may reduce the tendency for uric acid stone formation. Source: [facility] [employer]. Last revised 03-26-2017 Joseph Dallas MD LAB MICROBIOLOGY - [facility] ORDERABLES Final Result [facility] Department [place] [address] * Drugs of Abuse Screen, Urine without Confirmation (05/25/2021 8:44 PM BUSINESS DEVELOPMENT EXECUTIVE) Amphetamine, ur Not Detected CutOff 500ng/mL [facility] Comment: Interpretive Data - Amphetamines: ??Samples containing greater than 500 ng/mL d-methamphetamine ??or other cross-reacting amphetamine compounds are reported as positive. ??Amphetamine immunoassays are subject to significant false positive rates due to cross-reactivity of non-amphetamine drugs. Current Interpretive Data was last reviewed 2018. Barbiturates, ur Not Detected CutOff 200ng/mL [facility] Comment: Interpretive Data - Barbiturates: ??Samples containing greater than 200 ng/mL secobarbital or other cross-reacting barbiturate compounds are reported as positive. ??False positive and false negative results are possible. Current Interpretive Data was last reviewed 2018. Benzodiazepines, ur Not Detected CutOff 100ng/mL [facility] Comment: Interpretive Data - Benzodiazepines: ??Samples containing greater than 100 ng/mL nordiazepam or other cross-reacting compounds are reported as positive. ?? False positive and false negative results are possible. ?? Current Interpretive Data was last reviewed 2018. Cannabinoids, ur Not Detected CutOff 50 ng/mL [facility] Cocaine, ur Not Detected CutOff 150ng/mL [facility] Comment: Interpretive Data - Cocaine: ??Samples containing greater than 150 ng/mL benzoylecgonine or other cross-reacting compounds are reported as positive. False positive and false negative results are possible. Current Interpretive Data was last reviewed 2018. Fentanyl, Ur Not Detected Cutoff 1 ng/mL [facility] Comment: Interpretive Data - Fentanyls: ??Samples containing greater than 1 ng/mL fentanyl or other cross-reacting fentanyl compounds are reported as detected. ??False positive and false negative results are possible. Current Interpretive Data was last reviewed 2018. Methadone, ur Not Detected CutOff 300ng/mL [facility] Comment: Interpretive Data - Methadone: ??Samples containing greater than 300 ng/mL d,l-methadone or other cross-reacting compounds are reported as positive. ??False positive and false negative results are possible. Current Interpretive Data was last reviewed 2018. Opiates, ur Not Detected CutOff 300ng/mL [facility] Comment: Interpretive Data - Opiates: ??Samples containing greater than 300 ng/mL morphine or other cross-reacting compounds are reported as positive. ??False positive and false negative results are possible. Current Interpretive Data was last reviewed 2018. Oxycodone, ur Not Detected CutOff 100ng/mL [facility] Comment: Interpretive Data - Oxycodone: ??Samples containing greater than 100 ng/mL oxycodone or other cross-reacting compounds are reported as positive. ??False positive and false negative results are possible. ?? Current Interpretive Data was last reviewed 2018. Phencyclidine, ur Not Detected CutOff 25 ng/mL [facility] Comment: Interpretive Data - Phencyclidine: ??Samples containing greater than 25 ng/mL phencyclidine or other cross-reacting compounds are reported as positive. ??False positive and false negative results are possible. ?? Current Interpretive Data was last reviewed 2018. Urine Creatinine 30 mg/dL [facility] Comment: Interpretive Data Urine Creatinine: < 10 mg/dL is extremely dilute = or > 10 but < 20 mg/dL is dilute = or > 20 mg/dL is normal Current Interpretive Data was last revised on 2017. Urine 05/25/2021 8:44 PM BUSINESS DEVELOPMENT EXECUTIVE 05/25/2021 8:57 PM BUSINESS DEVELOPMENT EXECUTIVE Narrative [facility] - 05/25/2021 9:23 PM BUSINESS DEVELOPMENT EXECUTIVE Drug of Abuse screening is performed by immunoassay for medical purposes only. ??This is not to be used for Pain Management purposes. us Joseph Dallas MD LAB URINE ORDERABLES Final Result [facility] Department [place] [address] * XR Chest 1 View (05/25/2021 8:43 PM BUSINESS DEVELOPMENT EXECUTIVE) Anatomical Region Laterality Modality Body, Chest N/A Computed Radiogr aphy 05/25/2021 8:49 PM BUSINESS DEVELOPMENT EXECUTIVE Impressions 05/26/2021 9:35 AM CDT A single view of the chest dated for interpretation with comparison made to 06/08/2019. Unchanged calcified granuloma in the right upper lobe. No pleural effusion or pneumothorax. No pneumonic consolidation or edema. Unchanged [id number] cardiomegaly and calcified plaque disease of the thoracic aorta. Dictated by: Dontae Herrera The radiology attending physician has personally reviewed this study, and had reviewed and/or edited this written report and agrees with it. Electronically signed by: Carlitos Amin M.D. Narrative 05/26/2021 9:35 AM CDT EXAMINATION: 1 view chest radiograph History: Right M2 occlusion Procedure Note Carlitos Amin MD - 05/26/2021 EXAMINATION: 1 view chest radiograph History: Right M2 occlusion IMPRESSION: A single view of the chest dated for interpretation with comparison made to 06/08/2019. Unchanged calcified granuloma in the right upper lobe. No pleural effusion or pneumothorax. No pneumonic consolidation or edema. Unchanged [id number] cardiomegaly and calcified plaque disease of the thoracic aorta. Dictated by: Dontae Herrera The radiology attending physician has personally reviewed this study, and had reviewed and/or edited this written report and agrees with it. Electronically signed by: Carlitos Amin M.D. us Joseph Dallas MD IMG XR PROCEDURES Fin al Result * (ABNORMAL) ECG 12-LEAD (05/25/2021 8:38 PM BUSINESS DEVELOPMENT EXECUTIVE) Narrative [facility] - 05/25/2021 8:38 PM BUSINESS DEVELOPMENT EXECUTIVE Kunal Dalton MD ? 05/25/2021 ??8:44 PM ECG 12 lead Date/Time: 05/25/2021 8:38 PM Performed by: Kunal Dalton MD Authorized by: Kunal Dalton MD Rate: ??ECG rate: ??115 ??ECG rate assessment: tachycardic ?? Rhythm: ??Rhythm: atrial fibrillation ?? Ectopy: ??Ectopy: none ?? QRS: ??QRS axis: ??Right Conduction: ??Conduction: normal ?? ST segments: ??ST segments: ??Abnormal ??Depression: ??V2 and V3 T waves: ??T waves: inverted ?Inverted: ??III and aVF Other findings: ??Other findings: prolonged qTc interval ?Other findings comment: ??QT/QTc = 378/522 ms Interpretation: ??Interpretation: abnormal ?? Recommended Follow-up: ??Recommended follow up: further workup in the ED ?? Procedure Note Kunal Dalton MD - 05/25/2021 8:38 PM CST Procedure ECG 12 lead Date/Time: 05/25/2021 8:38 PM Performed by: Kunal Dalton MD Authorized by: Kunal Dalton MD Rate: ECG rate: 115 ECG rate assessment: tachycardic Rhythm: Rhythm: atrial fibrillation Ectopy: Ectopy: none QRS: QRS axis: Right Conduction: Conduction: normal ST segments: ST segments: Abnormal Depression: V2 and V3 T waves: T waves: inverted Inverted: III and aVF Other findings: Other findings: prolonged qTc interval Other findings comment: QT/QTc = 378/522 ms Interpretation: Interpretation: abnormal Recommended Follow-up: Recommended follow up: further workup in the ED Kunal Dalton MD 05/25/212043 us Kunal Dalton MD ECG ORDERABLES Final Resu lt [facility] * Influenza A/B, RSV, and COVID-19 PCR Nasopharyngeal (05/25/2021 8:19 PM BUSINESS DEVELOPMENT EXECUTIVE) COVID-19 RNA Negative Negative [facility] Influenza A RNA Negative Negative [facility] Influenza B RNA Negative Negative [facility] RSV RNA Negative Negative [facility] Comment: Interpretive data: Testing performed by [facility] ([phone]). This test is performed using the [employer] Xpert Xpress CoV-2/Flu/RSV plus assay. This is a multiplex, real-time reverse transcriptase PCR assay intended for the qualitative detection of nucleic acid from SARS-CoV-2, influenza A, influenza B, and respiratory syncytial virus. This assay has been reviewed by the FDA for Emergency Use Authorization (EUA). The performance characteristics have been verified by the [facility]. Results must be considered in the clinical context, and a negative result does not rule out infection. Interpretive Data last revised 2021. First COVID-19 test? No [facility] Employeed in healthcare? No [facility] status? No [facility] Group care resident? No [facility] Hospitalized? No [facility] Is patient in ICU? No [facility] Symptomatic as defined by CDC? No [facility] Nasopharyngeal 05/25/2021 8: 19 PM BUSINESS DEVELOPMENT EXECUTIVE 05/25/2021 8:36 PM BUSINESS DEVELOPMENT EXECUTIVE Narrative [facility] - 05/25/2021 9:17 PM BUSINESS DEVELOPMENT EXECUTIVE Reason for testing?->Bed placement or semi-private room Known exposure to confirmed or suspected COVID-19 case?->No Joseph Dallas MD LAB MICROBIOLOGY - GE NERAL ORDERABLES Final Result [facility] Department [place] [address] * CTA/CTP Rapid Stroke (C) (05/25/2021 8:15 PM BUSINESS DEVELOPMENT EXECUTIVE) Anatomical Region Laterality Modality Head and Neck N/A Computed Tomogra phy 05/25/2021 8:27 PM BUSINESS DEVELOPMENT EXECUTIVE Impressions 05/26/2021 8:58 AM CDT 1. 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 No acute intracranial hemorrhage. 2. Chronic left parieto-occipital infarction. The time sensitive CTA/CTP was communicated by Dr. Tonya MD to Dr. Herrera at 8:15 PM. Dictated by: Dontae Herrera The radiology attending physician has personally reviewed this study, and had reviewed and/or edited this written report and agrees with it. Electronically signed by: Nick Gibbs M.D. Narrative 05/26/2021 8:58 AM CDT EXAMINATION: Computed tomography angiography (CTA) of the head without and with contrast; Computed tomography angiography (CTA) of the neck with contrast. CT perfusion imaging of the head with contrast HISTORY: Atrial fibrillation on Eloquis, stopped taking one week ago presenting with dysarthria and left-sided facial droop. TECHNIQUE: Computed tomography of the head was performed without contrast according to standard protocol. Computed tomographic angiography was obtained from the level of the aortic arch to the vertex following the uneventful administration of intravenous contrast according to hyperacute stroke protocol. 3D images were generated on a dedicated workstation. CT perfusion of the brain was performed with intravenous contrast using a separate data acquisition. The data was transmitted to a separate workstation for processing by RAPID software ([employer]) to produce automated calculations of the estimated cerebral blood flow and Tmax. Contrast information: 120 mL Optiray-350 COMPARISON: 05/21/2019. FINDINGS: HEAD CT FINDINGS: There is no acute intracranial hemorrhage. Compared to the prior from 2019, there is a new chronic infarct in the left parieto-occipital lobe. 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 There is cerebral atrophy with expected dilation of the ventricles. There is no noncontrast evidence of acute stroke. There is no vascular hyperdensity of the M1 segments or basilar artery. There is no mass effect or midline shift. Bilateral lens replacements. 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 ANGIOGRAPHIC FINDINGS: The visualized aortic arch appears normal with normal configuration of the great vessels. There is no significant stenosis of the origins of the great vessels. Retropharyngeal course of the right internal carotid artery. There is no geographic area of vascular paucity in the brain. Left anterior circulation: L CCA: no occlusion or significant stenosis L carotid bifurcation: no occlusion or significant stenosis L ICA proximal: Mild calcified atherosclerotic disease with less than 30% stenosis L ICA distal: no occlusion or significant stenosis L ICA terminus: no occlusion or significant stenosis L M1: no occlusion or significant stenosis L M2 branches: no occlusion or significant stenosis L A2: no occlusion or significant stenosis Right anterior circulation: R CCA: no occlusion or significant stenosis R carotid bifurcation: no occlusion or significant stenosis R ICA proximal: Mild calcified atherosclerotic disease with less than 30% stenosis R ICA distal: no occlusion or significant stenosis R ICA terminus: no occlusion or significant stenosis R M1: no occlusion or significant stenosis R M2 branches: Occlusion of a right M2 branch (series 11 images [id number]) R A2: no occlusion or significant stenosis Posterior circulation: L Vertebral Artery: no occlusion or significant stenosis R Vertebral Artery: no occlusion or significant stenosis Basilar Artery: no occlusion or significant stenosis L BAG WASHER: no occlusion or significant stenosis R BAG WASHER: no occlusion or significant stenosis No cerebral aneurysm is seen. There is no evidence for an arteriovenous malformation. There is no suspicious cervical lymphadenopathy. 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 There is a calcified granuloma in the right upper lobe.. CT Perfusion: Estimated ischemic core volume (rCBF < 0.3): 4 mL, was reported an area of chronic infarction in the left parieto-occipital lobe. Estimated hypoperfusion volume (Tmax > 6 sec): 33 mL, within the right frontal lobe Procedure Note Nick Gibbs III, MD PhD - 05/26/2021 EXAMINATION: Computed tomography angiography (CTA) of the head without and with contrast; Computed tomography angiography (CTA) of the neck with contrast. CT perfusion imaging of the head with contrast HISTORY: Atrial fibrillation on Eloquis, stopped taking one week ago presenting with dysarthria and left-sided facial droop. TECHNIQUE: Computed tomography of the head was performed without contrast according to standard protocol. Computed tomographic angiography was obtained from the level of the aortic arch to the vertex following the uneventful administration of intravenous contrast according to hyperacute stroke protocol. 3D images were generated on a dedicated workstation. CT perfusion of the brain was performed with intravenous contrast using a separate data acquisition. The data was transmitted to a separate workstation for processing by RAPID software ([employer]) to produce automated calculations of the estimated cerebral blood flow and Tmax. Contrast information: 120 mL Optiray-350 COMPARISON: 05/21/2019. FINDINGS: HEAD CT FINDINGS: There is no acute intracranial hemorrhage. Compared to the prior from 2019, there is a new chronic infarct in the left parieto-occipital lobe. 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 There is cerebral atrophy with expected dilation of the ventricles. There is no noncontrast evidence of acute stroke. There is no vascular hyperdensity of the M1 segments or basilar artery. There is no mass effect or midline shift. Bilateral lens replacements. 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 ANGIOGRAPHIC FINDINGS: The visualized aortic arch appears normal with normal configuration of the great vessels. There is no significant stenosis of the origins of the great vessels. Retropharyngeal course of the right internal carotid artery. There is no geographic area of vascular paucity in the brain. Left anterior circulation: L CCA: no occlusion or significant stenosis L carotid bifurcation: no occlusion or significant stenosis L ICA proximal: Mild calcified atherosclerotic disease with less than 30% stenosis L ICA distal: no occlusion or significant stenosis L ICA terminus: no occlusion or significant stenosis L M1: no occlusion or significant stenosis L M2 branches: no occlusion or significant stenosis L A2: no occlusion or significant stenosis Right anterior circulation: R CCA: no occlusion or significant stenosis R carotid bifurcation: no occlusion or significant stenosis R ICA proximal: Mild calcified atherosclerotic disease with less than 30% stenosis R ICA distal: no occlusion or significant stenosis R ICA terminus: no occlusion or significant stenosis R M1: no occlusion or significant stenosis R M2 branches: Occlusion of a right M2 branch (series 11 images [id number]) R A2: no occlusion or significant stenosis Posterior circulation: L Vertebral Artery: no occlusion or significant stenosis R Vertebral Artery: no occlusion or significant stenosis Basilar Artery: no occlusion or significant stenosis L BAG WASHER: no occlusion or significant stenosis R BAG WASHER: no occlusion or significant stenosis No cerebral aneurysm is seen. There is no evidence for an arteriovenous malformation. There is no suspicious cervical lymphadenopathy. 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 There is a calcified granuloma in the right upper lobe.. CT Perfusion: Estimated ischemic core volume (rCBF < 0.3): 4 mL, was reported an area of chronic infarction in the left parieto-occipital lobe. Estimated hypoperfusion volume (Tmax > 6 sec): 33 mL, within the right frontal lobe IMPRESSION: 1. 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 No acute intracranial hemorrhage. 2. Chronic left parieto-occipital infarction. The time sensitive CTA/CTP was communicated by Dr. Tonya MD to Dr. Herrera at 8:15 PM. Dictated by: Dontae Herrera The radiology attending physician has personally reviewed this study, and had reviewed and/or edited this written report and agrees with it. Electronically signed by: Nick Gibbs M.D. Kunal Dalton MD IMG CT PROCEDURES Final Re sult * (ABNORMAL) eGFR (05/25/2021 7:56 PM BUSINESS DEVELOPMENT EXECUTIVE) [facility] eGFR 48(L) 90 - 130 mL/min/1. 73 m2 [facility] Comment: Interpretive Data Reference Interval Normal ?>/= [...] interpretive data was last reviewed 2021. Blood 05/25/2021 7:56 PM BUSINESS DEVELOPMENT EXECUTIVE 05/25/2021 8:06 PM BUSINESS DEVELOPMENT EXECUTIVE us Kunal Dalton MD LAB BLOOD ORDERABLES Final Result Performing Organization Address [facility] de Phone Number [facility] [employer] [address] * (ABNORMAL) Hemoglobin A1c (05/25/2021 7:56 PM BUSINESS DEVELOPMENT EXECUTIVE) Hgb A1C 6.2(H) 4.0 - 5.6 % [facility] Estimated Average Glucose 131 mg/dL [facility] Comment: The ADA recommends reporting an estimated Average Glucose (eAG) with all Hemoglobin A1c results using the equation derived from a study of 507 normal and diabetic adults. ??Minority populations were underrepresented and children were not included. ?? (Diabetes Care 2020; 43(S1): S66-S76). ??The eAG is not equivalent to a fasting glucose. Blood 05/25/2021 7:56 PM BUSINESS DEVELOPMENT EXECUTIVE 05/25/2021 8:11 PM BUSINESS DEVELOPMENT EXECUTIVE us Notinfile Unknown LAB BLOOD ORDERABLES Final Res ult Performing Organization Address [facility] Co de Phone Number [facility] [place] [address] * (ABNORMAL) Lipid panel (05/25/2021 7:56 PM BUSINESS DEVELOPMENT EXECUTIVE) [facility] Cholesterol 73 30 - 199 mg/dL [facility] Comment: Interpretive Data Ages < or [...] Data was last revised on 2017. Triglycerides 104 <=149 mg/dL [facility] Comment: Interpretive Data Ages < or [...] Data was last revised on 2017. HDL 37(L) >=40 mg/dL [facility] Comment: Interpretive Data Ages < or [...] was last revised on 2017. LDL, calculated 15 <=129 mg/dL [facility] Comment: Interpretive Data Ages < [...] was last revised on 2017. Non-HDL Cholesterol 36 mg/dL [facility] Comment: Interpretive Data Ages < [...] was last revised on 2017. Chol/HDL ratio 2 [facility] Blood 05/25/2021 7:56 PM BUSINESS DEVELOPMENT EXECUTIVE 05/25/2021 8:06 PM BUSINESS DEVELOPMENT EXECUTIVE us Notinfile Unknown LAB BLOOD ORDERABLES Final Res ult Performing Organization Address City/[facility]/ZIP Co de Phone Number [facility] [place] [address] * Heparin anti factor Xa activity (05/25/2021 7:56 PM BUSINESS DEVELOPMENT EXECUTIVE) Anti Factor Xa <0.15 IUnits/mL [facility] Comment: Code Blue Specimen Interpretive Data Enoxaparin [...] data was last revised on 2018. Blood 05/25/2021 7:56 PM BUSINESS DEVELOPMENT EXECUTIVE 05/25/2021 8:06 PM BUSINESS DEVELOPMENT EXECUTIVE us Notinfile Unknown LAB BLOOD ORDERABLES Final Res ult [facility] Department [place] [address] * (ABNORMAL) Differential, auto (05/25/2021 7:56 PM BUSINESS DEVELOPMENT EXECUTIVE) Neutrophil abs 7.9(H) 1.7 - 6.5 K/cumm [facility] Imm gran abs 0.0 0.0 - 0.1 K/cumm [facility] Lymphocyte abs 1.2 0.8 - 3.3 K/cumm [facility] Monocyte abs 0.6 0.2 - 0.8 K/cumm [facility] Eosinophil abs 0.1 0.0 - 0.5 K/cumm [facility] Basophil abs 0.0 0.0 - 0.1 K/cumm [facility] Neutrophil pct 80.6 % [facility] Comment: Interpretive Data Percent cell count reference ranges are not reported, since discordance with absolute values may lead to misinterpretation of CBC data. Current Interpretive Data was last revised on 2017. Imm gran pct 0.3 % [facility] Comment: Interpretive Data Percent cell count reference ranges are not reported, since discordance with absolute values may lead to misinterpretation of CBC data. Current Interpretive Data was last revised on 2017. Lymphocyte pct 11.8 % [facility] Comment: Interpretive Data Percent cell count reference ranges are not reported, since discordance with absolute values may lead to misinterpretation of CBC data. Current Interpretive Data was last revised on 2017. Monocyte pct 6.5 % [facility] Comment: Interpretive Data Percent cell count reference ranges are not reported, since discordance with absolute values may lead to misinterpretation of CBC data. Current Interpretive Data was last revised on 2017. Eosinophil pct 0.6 % [facility] Comment: Interpretive Data Percent cell count reference ranges are not reported, since discordance with absolute values may lead to misinterpretation of CBC data. Current Interpretive Data was last revised on 2017. Basophil pct 0.2 % [facility] Comment: Interpretive Data Percent cell count reference ranges are not reported, since discordance with absolute values may lead to misinterpretation of CBC data. Current Interpretive Data was last revised on 2017. Blood 05/25/2021 7:56 PM BUSINESS DEVELOPMENT EXECUTIVE 05/25/2021 8:06 PM BUSINESS DEVELOPMENT EXECUTIVE Result [facility] Kunal Dalton MD LAB BLOOD ORDERABLES Final Result Performing Organization Address [facility] Co de Phone Number [facility] [place] [address] * (ABNORMAL) Troponin I high-sensitivity series (baseline, 2hr, 4hr, 6hr) (05/25/2021 7:56 PM BUSINESS DEVELOPMENT EXECUTIVE) Trop I hs 27(H) <=17 ng/L [facility] Comment: Interpretive Data For further hscTnI resources including the diagnostic algorithm and an aid in interpretation, copy and paste this link: [email or web address] Current Interpretive Data last revised 2019. Blood 05/25/2021 7:56 PM BUSINESS DEVELOPMENT EXECUTIVE 05/25/2021 8:06 PM BUSINESS DEVELOPMENT EXECUTIVE Result [facility] Kunal Dalton MD LAB BLOOD ORDERABLES Final Result Performing Organization Address [facility] de Phone Number [facility] [place] [address] * (ABNORMAL) aPTT (05/25/2021 7:56 PM BUSINESS DEVELOPMENT EXECUTIVE) aPTT 23(L) 27 - 37 sec [facility] Comment: Code Blue Specimen Interpretive Data Therapeutic heparin range: 60.0 - 94.0 seconds. Based on correlation with therapeutic heparin activity range of 0.3-0.7 Units/mL. Current interpretive data was last revised on 2020. Blood (Blood, Venous) 05/25/2021 7:56 PM BUSINESS DEVELOPMENT EXECUTIVE 05/25/2021 8:06 PM BUSINESS DEVELOPMENT EXECUTIVE Narrative [facility] - 05/25/2021 8:30 PM BUSINESS DEVELOPMENT EXECUTIVE Potential stroke patient. Kunal Dalton MD LAB BLOOD ORDERABLES Final Result Performing Organization Address [facility] Co de Phone Number [facility] Department [place] [address] * (ABNORMAL) CBC with auto differential (05/25/2021 7:56 PM BUSINESS DEVELOPMENT EXECUTIVE) [facility] WBC 9.9 3.8 - 9.9 K/cumm [facility] Comment:Code Blue Specimen Hgb 9.0(L) 11.9 - 15.5 g/dL [facility] Hct 28.6(L) 35.6 - 45.5 % [facility] Plt 240 150 - 400 K/cumm [facility] MPV 9.9 9.1 - 12.3 fL [facility] RBC 3.41(L) 3.90 - 5.20 M/cumm [facility] MCV 83.9 81.3 - 96.4 fL [facility] MCH 26.4(L) 27.1 - 33.3 pg [facility] MCHC 31.5(L) 32.3 - 35.7 g/dL [facility] RDW CV 16.3(H) 11.1 - 14.9 % [facility] RDW SD 50.3(H) 35.7 - 48.1 fL [facility] NRBC abs 0.00 0.00 - 0.01 K/cumm [facility] Blood (Blood, Venous) 05/25/2021 7:56 PM BUSINESS DEVELOPMENT EXECUTIVE 05/25/2021 8:06 PM BUSINESS DEVELOPMENT EXECUTIVE Narrative [facility] - 05/25/2021 8:13 PM BUSINESS DEVELOPMENT EXECUTIVE Potential Stroke Patient us Kunal Dalton MD LAB BLOOD ORDERABLES Final Result [facility] Department [place] [address] * (ABNORMAL) Basic metabolic panel (05/25/2021 7:56 PM BUSINESS DEVELOPMENT EXECUTIVE) [facility] Sodium 136 135 - 145 mmol/L [facility] Comment:Code Blue Specimen Potassium, pl 4.2 3.3 - 4.9 mmol/L [facility] Comment:Code Blue Specimen Chloride 102 97 - 110 mmol/L [facility] Comment:Code Blue Specimen CO2 26 22 - 32 mmol/L [facility] Comment:Code Blue Specimen Anion gap 8 2 - 15 mmol/L [facility] Comment:Code Blue Specimen BUN 29(H) 8 - 25 mg/dL [facility] Comment:Code Blue Specimen Creatinine 1.15(H) 0.60 - 1.10 mg/dL [facility] Comment:Code Blue Specimen Glucose 107 70 - 199 mg/dL [facility] Comment: Code Blue Specimen Interpretive [...] classification and Diagnosis of Diabetes Diabetes Care 2017;40 (Suppl. 1):S11. Current interpretive data was last revised 2017. Calcium 9.1 8.5 - 10.3 mg/dL [facility] Comment:Code Blue Specimen Blood 05/25/2021 7:56 PM BUSINESS DEVELOPMENT EXECUTIVE 05/25/2021 8:06 PM BUSINESS DEVELOPMENT EXECUTIVE Narrative [facility] - 05/25/2021 8:31 PM BUSINESS DEVELOPMENT EXECUTIVE Potential Stroke patient. us Kunal Dalton MD LAB BLOOD ORDERABLES Final Result [facility] Department [place] [address] * POCT glucose (05/25/2021 7:55 PM BUSINESS DEVELOPMENT EXECUTIVE) Glucose, POC 108 70 - 199 mg/dL [facility] Blood 05/25/2021 7:55 PM BUSINESS DEVELOPMENT EXECUTIVE 05/25/2021 7:55 PM BUSINESS DEVELOPMENT EXECUTIVE us Notinfile Unknown LAB POCT ORDERABLES - DEVICE F inal Result Performing Organization Address [facility]/State/ZIP Co de Phone Number [facility] Department [place] [address] * POCT prothrombin time, whole blood (05/25/2021 7:53 PM BUSINESS DEVELOPMENT EXECUTIVE) PT, POC 12.9 10.6 - 13.5 sec [facility] INR, bld, POC 1.1 0.8 - 1.2 [facility] Blood 05/25/2021 7:53 PM BUSINESS DEVELOPMENT EXECUTIVE 05/25/2021 7:53 PM BUSINESS DEVELOPMENT EXECUTIVE us David Mitchell MD LAB POCT ORDERABLES - DEVICE Fin al Result [facility] Department [place] [address] documented in this encounter Visit Diagnoses Diagnosis Cerebrovascular accident (CVA), unspecified mechanism (HCC)- Primary Longstanding persistent atrial fibrillation (CMS/HCC) (HCC) Primary hypertension Unspecified essential hypertension Hypothyroidism, unspecified type documented in this encounter Administered Medications Inactive Administered Medications - up to 3 most recent administrations Medication Order MAR Action Action Date Dose Rate Site acetaminophen (TYLENOL) tablet 650 mg 650 mg, oral, Every 4 hours PRN, 1st line for pain, Starting on 05/25/21 at 2203, Administer if patient can swallow tablets., Indications: PainIndications:Pain Given 05/28/2021 9:00 PM CDT 650 mg Given 05/27/2021 9:31 PM CDT 650 mg Given 05/27/2021 3:54 PM CDT 650 mg ALPRAZolam (XANAX) tablet 0.5 mg 0.5 mg, oral, 2 times daily PRN, anxiety, Starting on 05/26/21 at 1023 Given 05/28/2021 1:05 PM CDT 0.5 mg Given 05/27/2021 9:31 PM CDT 0.5 mg Given 05/26/2021 9:21 PM CDT 0.5 mg apixaban (ELIQUIS) tablet 5 mg 5 mg, oral, Every 12 hours scheduled, First dose on Thu05/29/21 at 1030, Nurse to discontinue heparin infusion order and associated bolus at first administration of apixaban using ? order condition met? order source, Indications: atrial fibrillationIndications:atrial fibrillation Given 05/29/2021 1:07 PM CDT 5 mg aspirin tablet 325 mg 325 mg, oral, Daily, First dose (after last modification) on Thu05/26/21 at 1015 Given 05/29/2021 7:53 AM CDT 325 mg Given 05/28/2021 8:09 AM CDT 325 mg Given 05/27/2021 8:04 AM CDT 325 mg calcium carbonate (TUMS) chewable tablet 1,000 mg 1,000 mg (400 mg of elemental calcium), feeding tube, 2 times daily, First dose on Thu05/25/21 at 2245 Given 05/29/2021 7:53 AM CDT 1,000 mg Given 05/28/2021 9:00 PM CDT 1,000 mg Given 05/28/2021 8:09 AM CDT 1,000 mg carvediloL (COREG) tablet 12.5 mg 12.5 mg, oral, 2 times daily with meals (bkfst, dinner), First dose (after last modification) on Thu05/26/21 at 1800 Given 05/28/2021 8:09 AM CDT 12.5 mg Given 05/27/2021 5:45 PM CDT 12.5 mg Given 05/27/2021 8:04 AM CDT 12.5 mg carvediloL (COREG) tablet 25 mg 25 mg, oral, 2 times daily with meals (bkfst, dinner), First dose (after last modification) on Thu05/28/21 at 1800 Given 05/29/2021 5:11 PM CDT 25 mg Given 05/29/2021 7:53 AM CDT 25 mg Given 05/28/2021 5:32 PM CDT 25 mg carvediloL (COREG) tablet 6.25 mg 6.25 mg, oral, 2 times daily with meals (bkfst, dinner), First dose (after last modification) on Thu05/26/21 at 1100 Given 05/26/2021 10:35 AM CDT 6.25 mg dextrose 5% and sodium chloride 0.9% infusion (premix) 75 mL/hr, intravenous, Continuous, Starting on Thu05/26/21 at 0045 New Bag 05/26/2021 12:38 AM BUSINESS DEVELOPMENT EXECUTIVE 75 mL/hr 75 mL/hr docusate sodium (COLACE) capsule 100 mg 100 mg, oral, 2 times daily, First dose on 05/25/21 at 2245, If able to swallow capsules. Hold for diarrhea., Indications: constipation, Stool SoftenerIndications:constipation, Stool Softener Given 05/29/2021 7:53 AM CDT 100 mg Given 05/28/2021 9:00 PM CDT 100 mg Given 05/28/2021 8:09 AM CDT 100 mg enoxaparin (LOVENOX) syringe 30 mg 30 mg, subcutaneous, Daily (for enoxaparin), First dose on 05/26/21 at 2100, Indications: VTE ProphylaxisIndications:VTE Prophylaxis Given 05/28/2021 9:02 PM CDT 30 mg Left Lower Abdomen Given 05/27/2021 9:31 PM CDT 30 mg Le ft Antecubital Given 05/26/2021 9:21 PM CDT 30 mg Le ft Lower Abdomen famotidine (PEPCID) tablet 20 mg 20 mg, oral, Every 24 hours scheduled, First dose on 05/26/21 at 0900, If able to swallow tablets., Indications: Prevention of Stress UlcerIndications:Prevention of Stress Ulcer Given 05/26/2021 9:50 AM CDT 20 mg FLUoxetine (PROzac) capsule 40 mg 40 mg, oral, Daily, First dose on 05/27/21 at 1145, Do not crush, chew, cut, dissolve, open or otherwise manipulate tablet/capsule. Given 05/29/2021 7:53 AM CDT 40 mg Given 05/28/2021 8:09 AM CDT 40 mg furosemide (LASIX) tablet 40 mg 40 mg, oral, Daily, First dose (after last modification) on 05/29/21 at 1045 Given 05/29/2021 1:07 PM CDT 40 mg heparin in 0.9% sodium chloride 2,000 unit/1,000 mL (2 unit/mL) infusion (premix) Code/trauma/sedation continuous med, Starting on 05/25/21 at 2106 New Bag 05/25/2021 9:06 PM BUSINESS DEVELOPMENT EXECUTIVE 2 Units/hr 1 mL/hr hydrALAZINE (APRESOLINE) injection 10 mg 10 mg, intravenous, Administer over 2 Minutes, Every 15 min PRN, high blood pressure, and HR less than 70 bpm, Starting on 05/26/21 at 1105, Call MD if target not reached after 2 doses. When HR less than 70, Criteria (or): Other, Other mmHg: SBP greater than 175 mmHg or DBP greater than 100mmHg, SBP mmHg: other, Indications: hypertensionIndications:hypertens ion HYDROmorphone (DILAUDID) 1 mg/mL injection - ADS Override Pull Starting on 05/26/21 at 1646, For 1 dose, Created by cabinet override HYDROmorphone (DILAUDID) injection 0.2 mg 0.2 mg, intravenous, Administer over 2 Minutes, Every 10 min PRN, breakthrough pain, Starting on Thu05/26/21 at 1750, For 2 doses Given 05/26/2021 6:06 PM CDT 0.2 mg Given 05/26/2021 5:52 PM CDT 0.2 mg insulin lispro (HumaLOG, ADMELOG) 100 unit/mL injection 2-10 Units 2-10 Units, subcutaneous, Every 6 hours scheduled, First dose on Thu05/26/21 at 0000, Blood Sugar Insulin Dose 130 or less No insulin 131 - 150 2 units 151 - 180 4 units 181 - 210 6 units 211 - 230 8 units 231 - 250 10 units Greater than 250 - Call MD for hyperglycemia management instructions Do NOT hold for NPO status., Indications: HyperglycemiaIndications:Hyper glycemia Given 05/26/2021 6:10 AM CDT 4 Units Left Lower Abdomen Given 05/26/2021 12:55 AM BUSINESS DEVELOPMENT EXECUTIVE 6 Units L eft Lower Abdomen insulin lispro (HumaLOG, ADMELOG) 100 unit/mL injection 2-10 Units 2-10 Units, subcutaneous, 4 times daily before meals & nightly, First dose (after last modification) on 05/26/21 at 1130, Blood Sugar Insulin Dose 130 or less No insulin 131 - 150 2 units 151 - 180 4 units 181 - 210 6 units 211 - 230 8 units 231 - 250 10 units Greater than 250 - Call MD for hyperglycemia management instructions Do NOT hold for NPO status., Indications: HyperglycemiaIndications:Hypergl ycemia Given 05/29/2021 1:07 PM CDT 4 Units Left Upper Arm Given 05/29/2021 7:56 AM CDT 2 Units Le ft Lower Abdomen Given 05/28/2021 9:15 PM CDT 2 Units Le ft Lower Abdomen iodixanoL (VISIPAQUE) 270 mg iodine/mL injection Code/trauma/sedation medication, Starting on 05/25/21 at 2204 Given 05/25/2021 10:04 PM BUSINESS DEVELOPMENT EXECUTIVE 70 mL ioversoL (OPTIRAY 350) syringe syringe 125 mL 125 mL, intravenous, Once in imaging, contrast, Starting on 05/25/21 at 2000, For 1 dose Contrast Given 05/25/2021 8:09 PM BUSINESS DEVELOPMENT EXECUTIVE 120 mL labetaloL (NORMODYNE,TRANDATE) injection 10 mg 10 mg, intravenous, at 60 mL/hr, Administer over 2 Minutes, Every 15 min PRN, high blood pressure, and HR 70 bpm or more, Starting on Thu05/26/21 at 1105, Call MD if target not reached after 2 doses. When HR greater than 70, Criteria (or): Other, Other mmHg: SBP greater than 175 mmHg or DBP greater than 100mmHg, SBP mmHg: other, Indications: hypertensionIndications:hypertensio n levothyroxine (SYNTHROID) tablet 50 mcg 50 mcg, feeding tube, Daily, First dose on Thu05/26/21 at 0900, Administer on an empty stomach, preferably 30 minutes before breakfast. Take 4 hours apart from antacids, iron and calcium products. Given 05/27/2021 8:04 AM CDT 50 mcg Given 05/26/2021 9:07 AM CDT 50 mcg levothyroxine (SYNTHROID) tablet 50 mcg 50 mcg, oral, Daily (early AM), First dose (after last modification) on Thu05/28/21 at 0600, Administer on an empty stomach, preferably 30 minutes before breakfast. Take 4 hours apart from antacids, iron and calcium products. Given 05/29/2021 6:49 AM CDT 50 mcg Given 05/28/2021 5:23 AM CDT 50 mcg magnesium sulfate 2 g/50 mL in water (premix) 2 g 2 g, intravenous, Administer over 60 Minutes, Once, On Thu05/26/21 at 0615, For 1 dose New Bag 05/26/2021 6:01 AM CDT 2 g oxyCODONE (ROXICODONE) tablet 5 mg 5 mg, oral, Every 4 hours PRN, 2nd line for pain, Starting on 05/26/21 at 1527, Indications: PainIndications:Pain Given 05/26/2021 4:47 PM CDT 5 mg potassium chloride ER (KLOR-CON) extended release tablet 40 mEq 40 mEq, oral, Once, On 05/26/21 at 2230, For 1 dose, Do not crush, chew, cut, dissolve, open or otherwise manipulate tablet/capsule., Indications: hypokalemiaIndications:hypokalemia Given 05/26/2021 10:38 PM CDT 40 mEq rosuvastatin (CRESTOR) tablet 20 mg 20 mg, oral, Nightly, First dose on 05/26/21 at 2100 Given 05/28/2021 9:00 PM CDT 20 mg Given 05/27/2021 9:31 PM CDT 20 mg Given 05/26/2021 9:21 PM CDT 20 mg senna (SENOKOT) tablet 1 tablet 1 tablet, oral, 2 times daily, First dose on 05/25/21 at 2245, If able to swallow tablets. Hold for diarrhea., Indications: constipationIndications:constipation Given 05/29/2021 7:53 AM CDT 1 table t Given 05/28/2021 9:00 PM CDT 1 tablet Given 05/28/2021 8:09 AM CDT 1 tablet sodium chloride 0.9% flush 0.5-20 mL 0.5-20 mL, intra-catheter, Every 8 hours scheduled, First dose on 05/25/21 at 2245, Flush volume based on line type and size. Given 05/28/2021 9:09 PM CDT 10 mL Given 05/27/2021 9:33 PM CDT 10 mL Given 05/26/2021 9:22 PM CDT 10 mL tamsulosin (FLOMAX) extended release capsule 0.4 mg 0.4 mg, oral, Daily with dinner, First dose on 05/27/21 at 1800, Do not crush, chew, cut, dissolve, open or otherwise manipulate tablet/capsule. Given 05/29/2021 5:11 PM CDT 0.4 mg Given 05/28/2021 5:32 PM CDT 0.4 mg Given 05/27/2021 5:45 PM CDT 0.4 mg documented in this encounter Discontinued Medications Medication Sig Discontinue Reason Start Date End Da te aspirin 81 mg enteric coated tablet Take 1 tablet (81 mg total) by mouth daily Stop Taking at Discharge 08/29/2020 05/29/2021 ALPRAZolam (XANAX) 0.5 mg tablet Take 1 tablet (0.5 mg total) by mouth 3 (three) times a day as needed for anxiety Stop Taking at Discharge 04/22/2021 05/29/2021 documented as of this encounter Active and Recently Administered Medications Times are shown in CDT. Scheduled Medication Order 05/27/2021 05/28/2021 05/29/2021 apixaban (ELIQUIS) tablet 5 mg 5 mg, oral, Every 12 hours scheduled, First dose on Thu05/29/21 at 1030, Nurse to discontinue heparin infusion order and associated bolus at first administration of apixaban using ? order condition met? order source, Indications: atrial fibrillation 1307 (Given - Provider: Triny Miller RN) aspirin tablet 325 mg (CANCELED) 325 mg, oral, Daily, First dose (after last modification) on 05/26/21 at 1015 0804 (Given - Provider: Jo Ann Peterson RN) 0809 (Given - Provider: Gail Santana, ARMANI) 0753 (Given - Provider: Triny Miller, ARMANI) calcium carbonate (TUMS) chewable tablet 1,000 mg 1,000 mg (400 mg of elemental calcium), feeding tube, 2 times daily, First dose on 05/25/21 at 2245 0804 (Given - Provider: Jo Ann Peterson RN)2132 (Given - Provider: Tori Cannon RN) 0809 (Given - Provider: Gail Santana, ARMANI)2100 (Given - Provider: Zonia Sylvester RN) 0753 (Given - Provider: Triny Miller RN) carvediloL (COREG) tablet 12.5 mg (CANCELED) 12.5 mg, oral, 2 times daily with meals (bkfst, dinner), First dose (after last modification) on 05/26/21 at 1800 0804 (Given - Provider: Jo Ann Peterson, ARMANI)1745 (Given - Provider: Rupinder Valdez RN) 0809 (Given - Provider: Gail Santana, ARMANI) carvediloL (COREG) tablet 25 mg 25 mg, oral, 2 times daily with meals (bkfst, dinner), First dose (after last modification) on Thu05/28/21 at 1800 1732 (Given - Provider: Romina Willson, ARMANI) 0753 (Given - Provider: Triny Miller, ARMANI)1711 (Given - Provider: Triny Miller, ARMANI) docusate sodium (COLACE) capsule 100 mg(Linked Group 1) 100 mg, oral, 2 times daily, First dose on 05/25/21 at 2245, If able to swallow capsules. Hold for diarrhea., Indications: constipation, Stool Softener 0804 (Given - Provider: Jo Ann Peterson RN)2131 (Given - Provider: Tori Cannon RN) 0809 (Given - Provider: Gail Santana, ARMANI)2100 (Given - Provider: Zonia Sylvester, ARMANI) 0753 (Given - Provider: Triny Miller, ARMANI) enoxaparin (LOVENOX) syringe 30 mg (CANCELED) 30 mg, subcutaneous, Daily (for enoxaparin), First dose on 05/26/21 at 2100, Indications: VTE Prophylaxis 213 (Given - Provider: Tori Cannon RN) 210 (Given - Provider: Zonia Sylvester, ARMANI) FLUoxetine (PROzac) capsule 40 mg 40 mg, oral, Daily, First dose on 05/27/21 at 1145, Do not crush, chew, cut, dissolve, open or otherwise manipulate tablet/capsule. 1131 (Not Given - Provider: Jo Ann Peterson RN - Reason: Patient/family refused) 0809 (Given - Provider: Gail Santana RN) 0753 (Given - Provider: Triny Miller RN) furosemide (LASIX) tablet 40 mg 40 mg, oral, Daily, First dose (after last modification) on Thu05/29/21 at 1045 1307 (Given - Provider: Triny Miller, ARMANI) insulin lispro (HumaLOG, ADMELOG) 100 unit/mL injection 2-10 Units 2-10 Units, subcutaneous, 4 times daily before meals & nightly, First dose (after last modification) on Thu05/26/21 at 1130, Blood Sugar Insulin Dose 130 or less No insulin 131 - 150 2 units 151 - 180 4 units 181 - 210 6 units 211 - 230 8 units 231 - 250 10 units Greater than 250 - Call MD for hyperglycemia management instructions Do NOT hold for NPO status., Indications: Hyperglycemia 0602 (Not Given - Provider: Amy So RN - Reason: Order parameters not met)1144 (Given - Provider: Jo Ann Peterson RN - Comment: BG [phone] (Not Given - Provider: Rupinder Valdez RN - Reason: Order parameters not met - Comment: bg [phone] (Not Given - Provider: Tori Cannon RN - Reason: Order parameters not met) 0808 (Given - Provider: Gail Santana RN)1235 (Given - Provider: Gail Santana RN)1705 (Not Given - Provider: Romina Willson RN - Reason: Order parameters not met)2115 (Given - Provider: Zonia Sylvester RN) 0756 (Given - Provider: Triny Miller RN)1307 (Given - Provider: Triny Miller RN)1640 (Canceled Entry - Provider: Triny Miller RN) levothyroxine (SYNTHROID) tablet 50 mcg (CANCELED) 50 mcg, feeding tube, Daily, First dose on Thu05/26/21 at 0900, Administer on an empty stomach, preferably 30 minutes before breakfast. Take 4 hours apart from antacids, iron and calcium products. 0804 (Given - Provider: Jo Ann Peterson RN) levothyroxine (SYNTHROID) tablet 50 mcg 50 mcg, oral, Daily (early AM), First dose (after last modification) on Thu05/28/21 at 0600, Administer on an empty stomach, preferably 30 minutes before breakfast. Take 4 hours apart from antacids, iron and calcium products. 0523 (Given - Provider: Tori Cannon RN) 0649 (Given - Provider: Zonia Sylvester RN) rosuvastatin (CRESTOR) tablet 20 mg 20 mg, oral, Nightly, First dose on Thu05/26/21 at 2100 2131 (Given - Provider: Tori Cannon RN) 2100 (Given - Provider: Zonia Sylvester RN) senna (SENOKOT) tablet 1 tablet(Linked Group 2) 1 tablet, oral, 2 times daily, First dose on 05/25/21 at 2245, If able to swallow tablets. Hold for diarrhea., Indications: constipation 0804 (Given - Provider: Jo Ann Peterson RN)2207 (Not Given - Provider: Tori Cannon RN - Reason: Patient/family refused) 0809 (Given - Provider: Gail Santana RN)2100 (Given - Provider: Zonia Sylvester RN) 0753 (Given - Provider: Triny Miller, ARMANI) sodium chloride 0.9% flush 0.5-20 mL 0.5-20 mL, intra-catheter, Every 8 hours scheduled, First dose on 05/25/21 at 2245, Flush volume based on line type and size. 0507 (Not Given - Provider: Amy So RN - Reason: Other)1345 (Not Given - Provider: Jo Ann Peterson RN - Reason: Other)2133 (Given - Provider: Tori Cannon RN) 1237 (Not Given - Provider: Gail Santana RN - Reason: Other)1434 (Not Given - Provider: Gail Santana RN - Reason: Other)2109 (Given - Provider: Zonia Sylvester RN) 0511 (Not Given - Provider: Zonia Sylvester RN - Reason: Other)1400 (Canceled Entry - Provider: Triny Miller RN) tamsulosin (FLOMAX) extended release capsule 0.4 mg 0.4 mg, oral, Daily with dinner, First dose on Thu05/27/21 at 1800, Do not crush, chew, cut, dissolve, open or otherwise manipulate tablet/capsule. 1745 (Given - Provider: Rupinder Valdez RN) 1732 (Given - Provider: Romina Willson RN) 1711 (Given - Provider: Triny Miller, ARMANI) PRN Medication Order 05/27/2021 05/28/2021 05/29/2021 acetaminophen (TYLENOL) tablet 650 mg(Linked Group 3) 650 mg, oral, Every 4 hours PRN, 1st line for pain, Starting on 05/25/21 at 2203, Administer if patient can swallow tablets., Indications: Pain 0004 (Given - Provider: Amy So RN)1554 (Given - Provider: Rupinder Valdez, ARMANI)2131 (Given - Provider: Tori Cannon, RN) 2100 (Given - Provider: Zonia Sylvester RN) ALPRAZolam (XANAX) tablet 0.5 mg 0.5 mg, oral, 2 times daily PRN, anxiety, Starting on 05/26/21 at 1023 2131 (Given - Provider: Tori Cannon, ARMANI) 1305 (Given - Provider: Gail Santana RN) bisacodyl EC (DULCOLAX EC) tablet 10 mg 10 mg, oral, 2 times daily PRN, constipation, Starting on 05/25/21 at 2204, If not bowel movement in 48 hours. Do not crush, chew, cut, dissolve, open or otherwise manipulate tablet/capsule., Indications: constipation dextrose (D10W) 10% bolus 250 mL 250 mL, intravenous, at 1,000 mL/hr, Administer over 15 Minutes, Every 15 min PRN, blood glucose less than 70 mg/dL, Starting on 05/25/21 at 2204, If blood glucose is less than 70, give 250 mL D10W IV and notify MD. After treating for hypoglcemia, recheck BG followed by treatment every 15 minutes until the BG is greater than 100 mg/dl. Then check BG 1 hour post-treatment. If BG is less than 100 mg/dl, repeat Q15 minute BG checks and treatment as above., Indications: hypoglycemic disorder hydrALAZINE (APRESOLINE) injection 10 mg(Linked Group 4) 10 mg, intravenous, Administer over 2 Minutes, Every 15 min PRN, high blood pressure, and HR less than 70 bpm, Starting on 05/26/21 at 1105, Call MD if target not reached after 2 doses. When HR less than 70, Criteria (or): Other, Other mmHg: SBP greater than 175 mmHg or DBP greater than 100mmHg, SBP mmHg: other, Indications: hypertension labetaloL (NORMODYNE,TRANDATE) injection 10 mg(Linked Group 4) 10 mg, intravenous, at 60 mL/hr, Administer over 2 Minutes, Every 15 min PRN, high blood pressure, and HR 70 bpm or more, Starting on 05/26/21 at 1105, Call MD if target not reached after 2 doses. When HR greater than 70, Criteria (or): Other, Other mmHg: SBP greater than 175 mmHg or DBP greater than 100mmHg, SBP mmHg: other, Indications: hypertension ondansetron (ZOFRAN) injection 4 mg 4 mg, intravenous, Administer over 2 Minutes, Every 6 hours PRN, nausea, vomiting, Starting on 05/25/21 at 2158, Proceed to trimethobenzamide if no relief within 30 minutes. , Indications: Nausea and Vomiting oxyCODONE (ROXICODONE) tablet 5 mg 5 mg, oral, Every 4 hours PRN, 2nd line for pain, Starting on 05/26/21 at 1527, Indications: Pain sodium chloride 0.9% flush 0.5-20 mL 0.5-20 mL, intra-catheter, As needed, line care, Starting on 05/25/21 at 2200, Flush volume based on line type and size. Flush before and after each use. Linked Groups Order Group 1: docusate sodium (COLACE) capsule 100 mgJump to med 100 mg, oral, 2 times daily, First dose on 05/25/21 at 2245, If able to swallow capsules. Hold for diarrhea., Indications: constipation, Stool Softener Or docusate (COLACE) 10 mg/mL oral liquid 100 mg (CANCELED) 100 mg, feeding tube, 2 times daily, First dose on 05/25/21 at 2245, If able to receive medications per tube. Hold for diarrhea., Indications: constipation, Stool Softener Group 2: senna (SENOKOT) tablet 1 tabletJump to med 1 tablet, oral, 2 times daily, First dose on 05/25/21 at 2245, If able to swallow tablets. Hold for diarrhea., Indications: constipation Or senna 1.76 mg/mL syrup 8.8 mg (CANCELED) 8.8 mg, feeding tube, 2 times daily, First dose on 05/25/21 at 2245, If able to receive medications per tube. Hold for diarrhea., Indications: constipation Group 3: acetaminophen (TYLENOL) tablet 650 mgJump to med 650 mg, oral, Every 4 hours PRN, 1st line for pain, Starting on 05/25/21 at 2203, Administer if patient can swallow tablets., Indications: Pain Or acetaminophen (TYLENOL) 32 mg/mL oral solution 650 mg (CANCELED) 650 mg, feeding tube, Every 4 hours PRN, 1st line for pain, Starting on 05/25/21 at 2203, Administer if patient receiving meds per tube., Indications: Pain Or acetaminophen (TYLENOL) suppository 650 mg (CANCELED) 650 mg, rectal, Every 4 hours PRN, 1st line for pain, Starting on 05/25/21 at 2203, Administer if patient cannot tolerate enteral route., Indications: Pain Group 4: labetaloL (NORMODYNE,TRANDATE) injection 10 mgJump to med 10 mg, intravenous, at 60 mL/hr, Administer over 2 Minutes, Every 15 min PRN, high blood pressure, and HR 70 bpm or more, Starting on 05/26/21 at 1105, Call MD if target not reached after 2 doses. When HR greater than 70, Criteria (or): Other, Other mmHg: SBP greater than 175 mmHg or DBP greater than 100mmHg, SBP mmHg: other, Indications: hypertension Or hydrALAZINE (APRESOLINE) injection 10 mgJump to med 10 mg, intravenous, Administer over 2 Minutes, Every 15 min PRN, high blood pressure, and HR less than 70 bpm, Starting on 05/26/21 at 1105, Call MD if target not reached after 2 doses. When HR less than 70, Criteria (or): Other, Other mmHg: SBP greater than 175 mmHg or DBP greater than 100mmHg, SBP mmHg: other, Indications: hypertension documented in this encounter Orders Medications Ordered That Jon ht Not Have Been Administered Count Last Ordered Date First Ordered Date furosemide (LASIX) tablet 40 mg 2 2 05/25/2021 levothyroxine (SYNTHROID) tablet 50 mcg 1 0 05/27/2021 ALPRAZolam (XANAX) tablet 0.5 mg 1 05/27/19 aspirin suppository 300 mg 1 05/26/2021 aspirin tablet 325 mg 1 05/26/2021 carvediloL (COREG) tablet 6.25 mg 1 022 hydrALAZINE (APRESOLINE) injection 10 mg 3 05/26/2021 05/25/2021 labetaloL (NORMODYNE,TRANDAT E) injection 10 mg 3 05/26/2021 05/25/2021 lidocaine (LIDODERM) 5 % patch 1 patch 1 acetaminophen (TYLENOL) 32 m g/mL oral solution 650 mg 1 05/25/2021 acetaminophen (TYLENOL) suppository 650 mg 1 05/25/2021 bisacodyl EC (DULCOLAX EC) tablet 10 mg 1 0 05/25/2021 chlorhexidine (PERIDEX) 0.12 % solution 15 mL 1 05/25/2021 dextrose (D10W) 10% bolus 250 mL 1 05/26/19 22 docusate (COLACE) 10 mg/mL o ral liquid 100 mg 1 05/25/2021 famotidine (PEPCID) 20 mg/10 mL in sterile water (premix) 20 mg 1 05/25/2021 famotidine (PEPCID) tablet 20 mg 1 05/26/19 ondansetron (ZOFRAN) injection 4 mg 1 05/25 senna 1.76 mg/mL syrup 8.8 mg 1 05/25/2021 sodium chloride 0.9% flush 0.5-20 mL 1 05/14 sodium chloride 0.9% infusion 1 05/25/2021 Lab Orders Without Results Count Last Ordered D ate First Ordered Date POCT GLUCOSE DEVICE 18 05/29/2021 05/26/19 22 HEMOGLOBIN A1C 1 05/25/2021 HEPARIN ANTI FACTOR XA ACTIVITY 1 LIPID PANEL 1 05/25/2021 POCT PROTHROMBIN TIME, WHOLE BLOOD 1 2021 Imaging Orders Without Results Count Last Order ed Date First Ordered Date EXTUBATION 1 05/25/2021 Nursing Count Last Ordered Date First Orde red Date NURSING COMMUNICATION 2 05/25/2021 NURSING SWALLOW ASSESSMENT 1 05/25/2021 WEIGH PATIENT 1 05/25/2021 Consult Count Last Ordered Date First Orde red Date CONSULT TO ORTHO- FOOT/ANKLE 1 05/26/2021 IP CONSULT TO NEUROLOGY 1 05/25/2021 IP CONSULT TO NUTRITION SERVICES 1 05/26/19 IP CONSULT TO SPIRITUAL CARE 1 05/25/2021 PHARMACY COMMUNICATION 1 05/25/2021 POULTRY TRIMMER CONSULT 1 05/25/2021 Transfer Count Last Ordered Date First Orde red Date TRANSFER PATIENT 2 05/28/2021 05/27/2021 CORE MEASURES Count Last Ordered Date First Ord ered Date REASON FOR NO VTE PROPHYLAXI S - HOSPITAL ADMISSION - MEDICATIONS 1 05/25/2021 ADT Patient Update Count Last Ordered Date Firs t Ordered Date ED IP DECISION TO ADMIT 1 05/25/2021 documented in this encounter Care Teams Manager Environmental Relationship Specialty Start Date End Date Ryann Galdamez PA PCP - General Silo Man 04/02/21 01/22/22 documented as of this encounter
--- OUTSIDE RECORDS SUMMARY | 2024-03-13 01:11 | XMS_ITS | Encounter Summary ---
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 R/S for 07/16 at 2:30. She repeated date and time. documented in this encounter Plan of Treatment Not on file documented as of this encounter Visit Diagnoses Not on filedocumented in this encounter Care Teams Site Planner Relationship Specialty Start Date End Date Ryann Galdamez PA PCP - General Bell Person 04/02/21 01/22/22 documented as of this encounter
--- OUTSIDE RECORDS SUMMARY | 2024-03-13 01:11 | XMS_ITS | Encounter Summary ---
Author Organization [facility] Address [address] [place] [address] Phone Care Team Providers Care Manager Shift Name Role Phone Ryann Galdamez Primary Care Provider +1- [phone] Reason for Visit * Consultation (Routine) - Closed Specialty Diagnoses / Procedures Referred By Contac t Referred To Contact Cardiology Diagnoses Acute on chronic systolic CHF (congestive heart failure) (CMS/HCC) (HCC) Atrial fibrillation, unspecified type (HCC) Ryann Galdamez PA Phone: tel: fax: [facility] (All Locations) Referral ID Status Reason Start Date Expiration Date V isits Requested Visits Authorized [id number] Closed Specialty Services Required 10/31/2020 11/30/2021 6 6 Encounter Details Date Type Department Care Team (Late st Contact Info) Description 07/02/2021 1:40 PM CDT Office Visit [facility] Cardiology 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 Gender Identity Not on file Sexual Orientation Not on file documented as of this encounter Last Filed Vital Signs Vital Sign Reading Time Taken Comments Blood Pressure 168/114 07/02/2021 1:50 PM CDT Pulse 105 07/02/2021 1:50 PM CDT Temperature - - Respiratory Rate - - Oxygen Saturation 97% 07/02/2021 1:50 PM CDT Inhaled Oxygen Concentration - - Weight 72.1 kg (159 lb) 07/02/2021 1:50 PM CDT Height 157.5 cm (5' 2 ) 07/02/2021 1:50 PM CDT Body Mass Index 29.08 07/02/2021 1:50 PM CDT documented in this encounter Patient Instructions * Patient Instructions* Francisca Haile RN - 07/02/2021 1:40 PM CDT Please call our heart failure office @ [phone] with any questions or concerns (Florencio RN) Restart your spironolactone at 25 mg once/daily . You will need lab work (BMP) approximately 1 weekafter starting this for follow-up. Our office will call you when we get a copy of your BMP lab results. This lab is needed to follow-up on your spironolactone restart. STOP TAKING YOUR POTASSIUM CHLORIDE (KCL) Take and record your blood pressure/ heart rate 1-2 times/daily for possible medication (Diltiazem)Restart in about 2 weeks -if blood pressure/ and heart rate can support this restart. Call our office back in 2 weeks w/ this update. documented in this encounter Ordered Prescriptions Prescription Sig Dispense Quantity Refills Last Filled Start Date End Date losartan (COZAAR) 100 mg tablet Take 1 tablet (100 mg total) by mouth daily 30 tablet 11 07/02/2021 06/23/2022 spironolactone (ALDACTONE) 25 mg tablet Take 1 tablet (25 mg total) by mouth daily 30 tablet 11 07/02/2021 06/16/2022 documented in this encounter Progress Notes * Boston Fay MD PhD - 07/02/2021 1:40 PM CDT Images from the original note were not included. Miguel Rojas Department of Medicine Cardiovascular Division Chris Mendes M.D. [employer] [facility], [place] [facility], [address] [place] [id number], [email or web address] Date of Visit: 07/02/2021 Patient's Name: Prema Pearce : 1940 PIETRO: 07/02/2021 PROBLEM LIST: 1. Persistent atrial fibrillation ? DCCV and sotalol intiation ~ 2009, discontinued 12/2018 ? Treated with rate control until submassive pulmonary emboli in 05/2019, amiodarone initiated ? Amiodarone discontinued 06/2019 due GI side effects ? CVA 2021 due to being off of anticoagulation for elective procedure 2. 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 ? Echocardiogram 05/2019 with LVEF 38%, down from 51% and RV enlargement and dysfunction, occurred in setting of AF with RVR and submassive pulmonary embolism ? LVEF 66%, August 2020 3. Aortic stenosis, moderate 4. Moderate CAD on 08/2020 [facility] 5. Submassive pulmonary embolism 05/2019, provoked, occurred 1 week after left distal femoral replacement for an open fracture 6. Right lower extremity DVT 05/2019 7. Hypertension 8. Diabetes mellitus type II, insulin dependent ?? 9. Obstructive sleep apnea, on CPAP 10. Hypothyroidism 11. Left adrenal nodule ?? HISTORY OF PRESENT ILLNESS: I had the pleasure of seeing Prema Pearce today at [facility]. As you know, she is a 81 y.o. female with a history of atrial fibrillation, recent CVA, aortic stenosis and pulmonary embolism who [facility]. She was referred by her family medicineprovider PA, Linda Frost. She was previously followed with Dr. Walker. She has a longstanding history of atrial fibrillation and moderate aortic stenosis. Her most recenthistory is significant for embolic stroke last month on 05/25/2021 when she presented with left sided facial droop and slurred speech. Due to late presentation, she did not receive tPA but did undergo thrombectomy. This was complicated by atrial fibrillation with rapid ventricular response. This stroke occurred in the setting of recent lithotripsy and holding Eliquis two days before and 5 days after. Since her stroke, she has recovered function and has no residual deficits. She is participatingwith physical therapy. She is making progress but still has family members assist. Patient does notendorse any chest tightness, dyspnea on exertion, orthopnea, PND, LE swelling, palpitations, presyncope, or syncope. She endorses depression and has had multiple hardships with the loss of her one year ago and son two months ago from COVID-19. Her blood pressures have been very elevated at home, typically 150-170 mmHg. She currently takes carvedilol 25 mg BID and losartan 100 mg daily. Previously on spironolactone and diltiazem 120 mg. PAST MEDICAL HISTORY Past Medical History: Diagnosis Date ??? Adrenal [...] ??? Stroke (CMS/HCC) (HCC) ??? Zenker's diverticulum CURRENT MEDICATIONS Current Outpatient Medications: ??? acetaminophen (TYLENOL) 500 mg tablet, Take 1,000 mg by mouth as needed for pain When Needed, Disp: , Rfl: ??? ALPRAZolam (XANAX) 0.5 mg tablet, Take 0.5 tablets (0.25 mg total) by mouth 2 (two) times a dayas needed for anxiety, Disp: 60 tablet, Rfl: 0 ??? busPIRone (BUSPAR) 5 mg tablet, Take 1 tablet (5 mg total) by mouth 3 (three) times a day, Disp: 90 tablet, Rfl: 1 ??? CALCIUM CARBONATE ORAL, Take 600 mg by mouth 2 (two) times a day , Disp: , Rfl: ??? carvediloL (COREG) 25 mg tablet, TAKE 1 TABLET BY MOUTH TWICE A DAY WITH FOOD, Disp: 180 tablet, Rfl: 3 ??? Eliquis 5 mg tablet, TAKE 1 TABLET BY MOUTH TWICE A DAY, Disp: 180 tablet, Rfl: 3 ??? ferrous sulfate 325 mg (65 mg of elemental iron) tablet, TAKE 1 TABLET BY MOUTH TWICE A DAY, Disp: 60 tablet, Rfl: 1 ??? FLUoxetine (PROzac) 40 mg capsule, Take 40 mg by mouth daily, Disp: , Rfl: ??? furosemide (LASIX) 40 mg tablet, Take 1 tablet (40 mg total) by mouth daily, Disp: 30 tablet, Rfl: 11 ??? glipiZIDE (GLUCOTROL) 10 mg tablet, Take 10 mg by mouth 2 (two) times a day before breakfast and lunch, Disp: , Rfl: ??? levothyroxine (SYNTHROID) 50 mcg tablet, Take 1 tablet (50 mcg total) by mouth daily, Disp: 30 tablet, Rfl: 11 ??? losartan (COZAAR) 25 mg tablet, Take 4 tablets (100 mg total) by mouth daily, Disp: 90 tablet, Rfl: 3 ??? metFORMIN (GLUCOPHAGE) 500 mg tablet, TAKE 1 TABLET BY MOUTH TWICE A DAY WITH MEALS, Disp: 180 tablet, Rfl: 1 ??? potassium chloride ER (KLOR-CON) 20 mEq CR tablet, Take 20 mEq by mouth daily, Disp: , Rfl: ??? rosuvastatin (CRESTOR) 20 mg tablet, TAKE 1 TABLET BY MOUTH EVERY DAY, Disp: 90 tablet, Rfl: 3 ??? tamsulosin (FLOMAX) 0.4 mg extended release capsule, Take 1 capsule (0.4 mg total) by mouth daily with dinner, Disp: 30 capsule, Rfl: 0 ALLERGY Amlodipine, Prasanth inhibitors, Citalopram, Lisinopril, and [...] TW Conv) ??? Anesthesia problems Neg Hx SOCIAL HISTORY Social History Socioeconomic History ??? Marital status: [...] stated in the HPI PHYSICAL EXAM: BP (!) 168/114 Pulse 105 Ht 157.5 cm (5' 2 ) Wt 72.1 kg (159 lb) SpO2 97% BMI 29.08 kg/m?? General: Well appearing, No pain or [...] clinic today for initial evaluation of atrial fibrillation and moderate aortic stenosis. She has stable NYHA class 2 symptoms and appears euvolemic on exam. She has recovered systolic function on guideline therapy and with control of possibly tachycardia- mediated cardiomyopathy. Her main issue today is hypertension. We will restart her spironolactone 25 mg daily. She will remain on carvedilol 25 mg BID and losartan 100 mg daily. She will check blood pressures and will check back in 2 weeks. If her blood pressures and/or heart rate remain elevated, we will plan to add back diltiazem 120 mg daily. Regarding her atrial fibrillation, she remains in permanent irregular rhythm today. She has resumed her anticoagulation and will remain on it without cessation. We are pleased to see she has recovered for a neurologic perspective after her recent stroke. Lastly, her aortic stenosis will be monitored every 2-3 years, next in 2022. We will plan to see her back in 6 months or sooner if necessary Boston Fay MD PhD Fellow, Advanced Heart Failure and Transplant [facility] in [facility] Cosigned by Chris Mendes MD at 07/02/2021 11:03 PM CDT Associated attestation - Chris Mendes MD - 07/02/2021 11:03 PM CDT I have seen and examined the patient. I agree with the findings and plan of care as documented in the resident/fellow's note. My total encounter time on 07/02/2021 was 35 minutes which was spent in the activities [...] Diagnosis Essential hypertension- Primary Unspecified essential hypertension Paroxysmal atrial fibrillation (CMS/[facility]) (HCC) Atrial fibrillation Chronic combined systolic (congestive) and diastolic (congestive) heart failure (HCC) Hypertensive heart disease with heart failure (CMS/[facility]) (HCC) Unspecified hypertensive heart disease with heart failure documented in this encounter Discontinued Medications Medication Sig Discontinue Reason Start Date End Da te cephalexin (KEFLEX) 500 mg capsule Take 500 mg by mouth 3 (three) times a day Therapy completed 05/21/2021 07/02/2021 potassium chloride ER (KLOR-CON) 20 mEq CR tablet Take 20 mEq by mouth daily Alternate therapy 07/02/2021 losartan (COZAAR) 25 mg tablet Take 4 tablets (100 mg total) by mouth daily 06/17/2021 07/02/2021 documented as of this encounter Historical Medications * This list may reflect changes made after this encounter. FLUoxetine (PROzac) 40 mg capsule Take 40 mg by mouth daily 08/26/2021 added in this encounter Care Teams Manager Shift Relationship Specialty Start Date End Date Ryann Galdamez PA PCP - General Enterprise Cloud Architect 04/02/21 01/22/22 documented as of this encounter
--- OUTSIDE RECORDS SUMMARY | 2024-03-13 01:11 | XMS_ITS | Encounter Summary ---
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 documented in this encounter Plan of Treatment Not on file documented as of this encounter Visit Diagnoses Not on filedocumented in this encounter Care Teams Nuclear Reactor Operator Relationship Specialty Start Date End Date Ryann Galdamez PA PCP - General Boomswing Operator 04/02/21 01/22/22 documented as of this encounter
--- OUTSIDE RECORDS SUMMARY | 2024-03-13 01:11 | XMS_ITS | Encounter Summary ---
Author Organization [facility] Address [address] [place] [address] Care Team Providers Care Drawbench Operator Helper Name Role Phone Ryann Galdamez Primary Care Provider +1- [phone] Reason for Visit * Reason Comments Follow-up Encounter Details Date Type Department Care Team (Late st Contact Info) Description 07/15/2021 3:00 PM CDT Office Visit [facility] Family Medicine [address] [place] [address] Ryann Galdamez PA [facility] [place], [place] [id number] Anxiety (Primary Dx); Iron deficiency anemia, unspecified iron deficiency anemia type; Episode of recurrent major depressive disorder, unspecified depression episode severity (HCC); Essential hypertension; Sleep disturbance Social History Tobacco Use Types Packs/Day Years [...] on file 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 Gender Identity Not on file Sexual Orientation Not on file documented as of this encounter Last Filed Vital Signs Vital Sign Reading Time Taken Comments Blood Pressure 120/70 07/15/2021 3:18 PM CDT Pulse 75 07/15/2021 3:18 PM CDT Temperature 37.1 ??C (98.7 ??F) 07/15/2021 3:18 PM CD T Respiratory Rate - - Oxygen Saturation 96% 07/15/2021 3:18 PM CDT Inhaled Oxygen Concentration - - Weight 70.3 kg (155 lb) 07/15/2021 3:18 PM CDT Height 157.5 cm (5' 2 ) 07/15/2021 3:18 PM CDT Body Mass Index 28.35 07/15/2021 3:18 PM CDT documented in this encounter Ordered Prescriptions Prescription Sig Dispense Quantity Refills Last Filled Start Date End Date zolpidem (AMBIEN) 10 mg tabletIndications: Sleep-Onset Insomnia Take 1 tablet (10 mg total) by mouth nightly as needed for sleep 90 tablet 07/15/2021 2 documented in this encounter Progress Notes * Ryann Galdamez PA - 07/15/2021 3:00 PM CDT Images from the original note were not included. Chief Complaint Follow-up HPI Here for f/u on anxiety, depression, BAKARI, and HTN. Since last ov, has been evaluated by Dr. Mendes. Spironolactone was restarted at 25mg every day, and she is to repeat a bmp (notes that she did this earlier today at [facility], results pending) Still on prozac, taking a prn xanax maybe 1/d. Feeling better emotionally with the buspar. Brings list of counselors from [facility], is going to pursue this further. Has neuro consult pending for tremor of hands appt with heme pending tomorrow for anemia Brings copy of poa paperwork for us to add to chart. Sugar running 117-135 at home. Took 1/2 of glipizide last night after pasta. Presents with brother today. Allergies as of 07/15/2021 - Reviewed 07/15/2021 Allergen Reaction Noted ??? Amlodipine Shortness of breath 07/21/2019 ??? Prasanth inhibitors Cough ??? Citalopram ??? Lisinopril ??? Lisinopril-hydrochlorothiazide Dizziness and Nausea only 05/13/2021 Outpatient Encounter Medications as of 07/15/2021 Medication Sig Dispense Refill ??? acetaminophen (TYLENOL) 500 mg tablet Take 1,000 mg by mouth as needed for pain When Needed ??? ALPRAZolam (XANAX) 0.5 mg tablet Take 0.5 tablets (0.25 mg total) by mouth 2 (two) times a day as needed for anxiety 60 tablet 0 ??? busPIRone (BUSPAR) 5 mg tablet Take 1 tablet (5 mg total) by mouth 3 (three) times a day 270 tablet 0 ??? CALCIUM CARBONATE ORAL Take [...] MOUTH TWICE A DAY 60 tablet 1 ??? FLUoxetine (PROzac) 40 mg capsule Take 40 mg by mouth daily ??? furosemide (LASIX) 40 mg tablet Take [...] by mouth daily 30 tablet 11 ??? [DISCONTINUED] dilTIAZem CD/XR/XT (Cardizem CD) 120 mg 24 hr capsule Take 1 capsule (120 mg total) by mouth daily 30 capsule 11 ??? zolpidem (AMBIEN) 10 mg tablet Take 1 tablet (10 mg total) by mouth nightly as needed for sleep90 tablet 0 ??? [DISCONTINUED] tamsulosin (FLOMAX) 0.4 mg extended release capsule Take 1 capsule (0.4 mg total) by mouth daily with dinner (Patient not taking: Reported on 07/15/2021) 30 capsule 0 No facility-administered encounter medications on file as of 07/15/2021. Review of Systems Constitutional: Negative for fatigue, fever and unexpected weight change. HENT: Negative for congestion. Respiratory: Negative for cough, chest tightness and shortness of breath. Cardiovascular: Negative for chest pain and palpitations. Gastrointestinal: Negative for abdominal pain. Genitourinary: Negative for difficulty urinating and dysuria. Musculoskeletal: Negative for arthralgias and back pain. Skin: Negative for color change. Neurological: Positive for tremors. Negative for dizziness. Hematological: Does not bruise/bleed easily. Psychiatric/Behavioral: Positive for sleep disturbance. Negative for confusion and suicidal ideas. The patient is nervous/anxious. Vitals: 07/15/21 1518 BP: 120/70 BP Location: Left arm Patient Position: Sitting Pulse: 75 Temp: 37.1 ??C (98.7 ??F) TempSrc: Oral SpO2: 96% Weight: 70.3 kg (155 lb) Height: 157.5 cm (5' 2 ) Physical Exam Vitals and nursing note reviewed. Constitutional: General: She is not in acute distress. Appearance: Normal appearance. She is not ill-appearing, toxic-appearing or diaphoretic. HENT: Head: Normocephalic and atraumatic. Cardiovascular: Rate and Rhythm: Normal rate and regular rhythm. Heart sounds: Normal heart sounds. No murmur heard. No friction rub. No gallop. Pulmonary: Effort: Pulmonary effort is normal. No respiratory distress. Breath sounds: Normal breath sounds. No stridor. No wheezing, rhonchi or rales. Chest: Chest wall: No tenderness. Musculoskeletal: Comments: Ambulates with wheeled walker, boot on LLE Neurological: General: No focal deficit present. Mental Status: She is alert and oriented to person, place, and time. Psychiatric: Mood and Affect: Mood normal. Behavior: Behavior normal. Thought Content: Thought content normal. Assessment/Plan Diagnoses and all orders for this visit: Anxiety (F41.9) (Primary) Assessment & Plan: Stable, continue medications the same at this time Encouraged her to pursue counseling further, will let us know if needing assistance Iron deficiency anemia, unspecified iron deficiency anemia type (D50.9) Assessment & Plan: Has appt pending for hematology that she will keep Episode of recurrent major depressive disorder, unspecified depression episode severity (HCC) (F33.9) Assessment & Plan: Stable, continue medications the same at this time Encouraged her to pursue counseling further, will let us know if needing assistance Essential hypertension (I10) Assessment & Plan: Continue with care per cvt tech Sleep disturbance (G47.9) Assessment & Plan: Stable, continue medications the same at this time Orders: - zolpidem (AMBIEN) 10 mg tablet; Take 1 tablet (10 mg total) by mouth nightly as needed for sleep Orders Placed This Encounter ??? zolpidem (AMBIEN) 10 mg tablet Sig: Take 1 tablet (10 mg total) by mouth nightly as needed for sleep Dispense: 90 tablet Refill: 0 RACHID Pinto documented in this encounter Miscellaneous Notes * Assessment & Plan Note - Ryann Galdamez PA - 07/15/2021 5:40 PM CDT Associated Problem(s): AYAD on CPAP Stable, continue medications the same at this time * Assessment & Plan Note - Ryann Galdamez PA - 07/15/2021 5:40 PM CDT Associated Problem(s): Iron deficiency anemia (Resolved 03/03/2023) Has appt pending for hematology that she will keep * Assessment & Plan Note - Ryann Galdamez PA - 07/15/2021 5:40 PM CDT Associated Problem(s): Essential hypertension Continue with care per cvt tech * Assessment & Plan Note - Ryann Galdamez PA - 07/15/2021 5:40 PM CDT Associated Problem(s): Moderate episode of recurrent major depressive disorder (HCC) Stable, continue medications the same at this time Encouraged her to pursue counseling further, will let us know if needing assistance * Assessment & Plan Note - Ryann Galdamez PA - 07/15/2021 5:39 PM CDT Associated Problem(s): Anxiety (Resolved 03/03/2023) Stable, continue medications the same at this time Encouraged her to pursue counseling further, will let us know if needing assistance documented in this encounter Plan of Treatment Not on file documented as of this encounter Visit Diagnoses Diagnosis Anxiety- Primary Anxiety state, unspecified Iron deficiency anemia, unspecified iron deficiency anemia type Episode of recurrent major depressive disorder, unspecified depression episode severity (HCC) Essential hypertension Unspecified essential hypertension Sleep disturbance Unspecified sleep disturbance documented in this encounter Discontinued Medications Medication Sig Discontinue Reason Start Date End Da te dilTIAZem CD/XR/XT (Cardizem CD) 120 mg 24 hr capsule Take 1 capsule (120 mg total) by mouth daily Therapy completed 07/09/2021 07/15/2021 tamsulosin (FLOMAX) 0.4 mg extended release capsule Take 1 capsule (0.4 mg total) by mouth daily with dinner 05/29/2021 07/15/2021 documented as of this encounter Care Teams Drawbench Operator Helper Relationship Specialty Start Date End Date Ryann Galdamez PA PCP - General Hospital Account Manager 04/02/21 01/22/22 documented as of this encounter
--- OUTSIDE RECORDS SUMMARY | 2024-03-13 01:11 | XMS_ITS | Encounter Summary ---
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 Went to [facility] ER, fragment of stone was found in her bladder. Had stroke on 05/25. Encounter Details Date Type Department Care Team (Latest Contact Info) Description 05/31/2021 10:00 AM CDT Clinical Support [facility] Family Medicine [address] [place] [id number] Linda Frost PA [address] [place], [place] [id number] Cerebrovascular accident (CVA) due to occlusion of cerebral artery (CMS/HCC) (HCC) (Primary Dx); Essential hypertension; Dysuria; Iron deficiency anemia due to chronic blood loss; Hypothyroidism, unspecified type; Anxiety; Moderate episode of recurrent major depressive disorder (HCC); Atrial fibrillation with RVR (CMS/HCC) (HCC); Closed fracture of distal end of left fibula with routine healing; Nondisplaced fracture of distal end of left fibula; History of nephrolithiasis; Nausea Social History Tobacco Use Types Packs/Day Years [...] on file 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 Gender Identity Not on file Sexual Orientation Not on file documented as of this encounter Last Filed Vital Signs Vital Sign Reading Time Taken Comments Blood Pressure 152/94 05/31/2021 10:45 AM CDT Pulse 73 05/31/2021 10:32 AM CDT Temperature 36.8 ??C (98.3 ??F) 05/31/2021 10:32 AM C DT Respiratory Rate - - Oxygen Saturation 98% 05/31/2021 10:32 AM CDT Inhaled Oxygen Concentration - - Weight - - Height - - Body Mass Index - - documented in this encounter Ordered Prescriptions Prescription Sig Dispense Quantity Refills Last Filled Start Date End Date ondansetron (Zofran) 4 mg tablet Take 1 tablet (4 mg total) by mouth every 8 (eight) hours as needed for nausea or vomiting 10 tablet 05/31/2021 2 documented in this encounter Progress Notes * Linda Frost PA - 05/31/2021 10:00 AM CDT Images from the original note were not included. Transition of Care Visit Patient is seen in the office today for a transition of care visit, after a recent hospitalization.Initial phone contact was confirmed for the transition of care within two business days after discharge, and communication regarding aspects of care, education and support with activities of daily living is documented in the chart. Linda Rowe PA have personally reviewed pertinent Hospital/ER data including [employer] and Care Everywhere if available. This patient's discharge medication list has been reviewed and reconciled with her medication list in the office chart and has also been reviewed with patient and/or caregiver. I have noted any changes. Son is with her today. Admission Date: 05/25/2021 Discharge Date: 05/29/2021 Date of Initial Post-discharge Interactive Contact: Today is day 2 after discharge Complexity of Medical Decision Making: HIGH Metabolic Lab Results: There is no height or weight on file to calculate BMI. Glucose: Glucose Date Value Ref Range Status 05/29/2021 115 70 - 199 mg/dL Final Comment: Interpretive Data Fasting glucose >/= 126 mg/dl is diagnostic for diabetes. Fasting is defined as no caloric intake [...] Current interpretive data was last revised 2017. 03/12/2021 188 (H) 65 - 99 mg/dL Final Comment: Fasting reference interval For someone without known diabetes, a glucose value >125 mg/dL indicates that they may have diabetes and this should be confirmed with a follow-up test. Glucose, POC Date Value Ref Range Status 05/29/2021 160 70 - 199 mg/dL Final Lab Results Component Value Date WBC 5.0 05/29/2021 HGB 8.8 (L) 05/29/2021 HCT 28.3 (L) 05/29/2021 MCV 84.7 05/29/2021 Lab Results Component Value Date GLUCOSE 160 05/29/2021 CALCIUM 9.6 05/29/2021 SODIUM 138 05/29/2021 POTASSIUM 4.3 05/29/2021 CO2 27 05/29/2021 CHLORIDE 105 05/29/2021 BUNSER 17 05/29/2021 CREATININE 0.70 05/29/2021 Major Procedures and Tests: Major Procedures and Tests Performed During Inpatient Stay: Studies Pending at Discharge (Includes Lab and Radiology) None Hospital Course/Interval History: Patient was in the ER on May 22 with kidney stones. She has been following closely with Urology as she has had multiple stones in the last few months. She underwent lithotripsy in the Eliquis for her AFib was held for 1 week prior to the procedure. Tolerated procedure well but noted stroke like sxs on 05/25. Has follow-up scheduled with Urology. CVA: On 05/25 she noticed drooping of the left side of her face and slurred speech. She went to [facility] and was transferred to [facility] and diagnosed with a cardioembolic stroke attributed tothrombosis small vessels affecting the middlecerebral artery. She was a GO for thrombectomy (mRS 0) and achieved TICI 3 reperfusion after two passes with stent retriever. The clot was reportedly very fibrous and somewhat difficult to retrieve. The procedure was complicated by AFib with RVR (max [id number]); given this in conjunction with concern for development of vasospasm, she received 12.5 mg total of intra-arterial Verapamil. There were otherwise no complications. EBL 100 cc. R radial access c losed with TR band. She was sedated with Propofol and required initiation of Phenylephrine gtt. Upon discharge she was restarted on the Eliquis 5 mg b.i.d.. She feels as though her left side symptoms have improved greatly. She is scheduled for home health PT and OT to continue strengthening and evaluation. Awaiting their call to confirm dates. Ankle Fracture: During the stroke she fell and had a nondisplaced distal fibular fracture. She is currently in a boot. She needs to follow-up with orthopedics. Appointment was set for her with a [facility] physician on 06/13 but it to be very difficult for her to get to [facility] so would prefer to transition care to Orthopedics in [place]. She states currently she is pain-free /HF/HTN: Patient has moderate aortic stenosis with heart failure but preserved ejection fracture. Her last EF was 66%. She is continue with the Lasix 40/ Klor-Con 20 meq bid and Coreg 25 mg b.i.d. she appearscompensated today. She will need to continue following with Cardio but again she would prefer to transition to [facility] for this care is is becoming increasingly difficult to get to [facility]. Will make the referral to a local instrument man. Stress/Depression: Son and have both recently . Prozac 40mg. Xanax was discontinued due to fall risk. Advised will take a little while to build up for stress control but will not increase fall risk or have dependency/addiction characteristics. ANEMIA: Patient had noted anemia between February and May of this last year. In May she was 9 well in the hospital dropped down to 7.8 and upon discharge on 05/29 she was 8.8. She does appear very pale today. Her conjunctiva are also very pale and she is felt dizzy. Will go ahead and recheck her labs to make sure that she is not continuing to have blood loss. She has had quite a bit of loss from this kidney stone but hasn't had any further anemia workup. Patient states she had some mild dysuria this morning. She is making urine consistently and denies seeing any blood present in the urine or the stool. She continues to feel very tired and weak at times. She states her appetite is coming back. She is working on hydration. Has noted some nausea since discharge. Problem Nausea Iron Deficiency Anemia Due to Chronic Blood Loss Cerebrovascular Accident (Cva) Due to Occlusion of Cerebral Artery ([facility]) ([facility]) 05/2021 after holding Eliquis for lithotripsy thrombosis small vessels affecting the middlecerebral artery. She was a GO for thrombectomy (mRS 0) and achieved TICI 3 reperfusion after two passes with stent retriever. The clot was reportedly very fibrous and somewhat difficult to retrieve. Closed Fracture of Distal End of Left Fibula With Routine Healing History of Nephrolithiasis Dysuria Episode of Recurrent Major Depressive Disorder (Hcc) Anxiety Hypothyroidism, Unspecified Essential Hypertension Atrial Fibrillation With Rvr (Cms/Hcc) ([facility]) Current Outpatient Medications Medication Sig Dispense Refill ??? acetaminophen (TYLENOL) 500 mg tablet Take 1,000 mg by mouth as needed for pain ??? CALCIUM CARBONATE ORAL Take 600 mg by mouth 2 (two) times a day ??? carvediloL (COREG) 25 mg tablet TAKE 1 TABLET BY MOUTH TWICE A DAY WITH FOOD 180 tablet 3 ??? Eliquis 5 mg tablet TAKE 1 TABLET BY MOUTH TWICE A DAY 180 tablet 3 ??? FLUoxetine (PROzac) 40 mg capsule Take 1 capsule (40 mg total) by mouth daily 30 capsule 11 ??? furosemide (LASIX) 40 mg tablet Take [...] DAY WITH MEALS 180 tablet 1 ??? multivitamin,zt-ajlb-Yn-FA-min 27-0.4 mg tablet Take 1 tablet by mouth daily ??? oxyCODONE (ROXICODONE) 5 mg immediate release tablet Take 1 tablet (5 mg total) by mouth every 4 (four) hours as needed for pain for up to 14 days 20 tablet 0 ??? rosuvastatin (CRESTOR) 20 mg tablet TAKE 1 TABLET BY MOUTH EVERY DAY 90 tablet 3 ??? tamsulosin (FLOMAX) 0.4 mg extended release capsule Take 1 capsule (0.4 mg total) by mouth daily with dinner 30 capsule 0 ??? ondansetron (Zofran) 4 mg tablet Take 1 tablet (4 mg total) by mouth every 8 (eight) hours as needed for nausea or vomiting 10 tablet 0 No current facility-administered medications for this visit. Review of Systems: Review of Systems Physical Exam: BP 152/94 Pulse 73 Temp 36.8 ??C (98.3 ??F) SpO2 98% Physical Exam Vitals and nursing note reviewed. Constitutional: Appearance: She is well-developed. She is ill-appearing. Comments: pale palpebral conjunctiva bilateral HENT: Head: Normocephalic and atraumatic. Eyes: Comments: Pupils are equal Cardiovascular: Rate and Rhythm: Normal rate and regular rhythm. Heart sounds: No murmur heard. Pulmonary: Effort: Pulmonary effort is normal. Breath sounds: Normal breath sounds. Abdominal: Palpations: Abdomen is soft. Tenderness: There is no abdominal tenderness. Musculoskeletal: Comments: Using walker. Slow gait Skin: General: Skin is warm and dry. Findings: No rash. Neurological: Mental Status: She is alert and oriented to person, place, and time. Comments: Left sided facial drooping and weakness per chart appears to have resolved. No obvious focal loss today Assessment/Plan Diagnoses and all orders for this visit: Cerebrovascular accident (CVA) due to occlusion of cerebral artery (CMS/HCC) (HCC) (Primary) Assessment & Plan: Patient status post CVA status post thrombectomy with reperfusion. Patient had great results. She feels as though her left-sided symptoms have almost completely resolved. Home health is scheduled to follow-up with her to assess for PT OT. She is back on her Eliquis for stroke prevention secondary to the AFib. She has follow-up with Cardiology. Patient is on anticoagulant and statin. Aspirin is on hold per Cardiology Essential hypertension Assessment & Plan: BP is running on the high end today. She is status post stroke so will let it run a little high. She is to monitor at home. She will follow-up with Bhargav pickard with on Thursday and bring the readings in with her. Encouraged to limit sodium intake and exercise for weight control. Orders: - Comprehensive metabolic panel; Future - Magnesium; Future Dysuria Assessment & Plan: Pt presents with dysuria. Urine dip completed. Send urine culture. The deployed pretty clear. She has no hematuria. Will hold off on antibiotic until culture is available. If she starts running fever chills or sweats she is to contact the office immediately Orders: - POCT urinalysis dipstick - Urine culture Urine, clean voided; Future Iron deficiency anemia due to chronic blood loss Assessment & Plan: Patient has noted anemia over the last [...] voicing an increased nausea today so hesitant tostart her on iron supplementation. Will discuss further with PCP at her Thursday appointment. Orders: - CBC with auto differential; Future Hypothyroidism, unspecified type Assessment & Plan: Check labs. Continue levothyroxine 50 mcg Orders: - TSH; Future Anxiety Assessment & Plan: See depression Moderate episode of recurrent major depressive disorder (HCC) Assessment & Plan: Patient with depression. Her Xanax was stopped in the hospital due to increased fall risk. She was started on fluoxetine 40 mg. She has not been on it for extended amount of time so will take time for it to kick in. Patient is aware of this and willing to monitor. Atrial fibrillation with RVR (CMS/HCC) (HCC) Assessment & Plan: Patient was known AFib. 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 She would prefer to see a cardiology in this area so will make the referral to Dr. sams at [facility]. She is currently on Eliquis b.i.d., Coreg 25 mg b.i.d. and Lasix with potassium supplementation. Continue to monitor heart rate and if sustains above 120 she is to follow up immediately in the ER. Orders: - Ambulatory referral to Cardiology; Future Closed fracture of distal end of left fibula with routine healing Assessment & Plan: Patient sustained a distal fibular fracture after falling related to the stroke. She is currently in a boot. She needs to see Orthopedics and has been scheduled at [facility] that would prefer to be seen in the shadow area. Will make referral to Ortho in [place] for definitive management of this ankle fracture. Nondisplaced fracture of distal end of left fibula - Ambulatory referral to Orthopedic Surgery; Future History of nephrolithiasis Assessment & Plan: History of kidney stones with recent lithotripsy. Patient has follow-up with Urology for continued management of the kidney stones. Nausea Assessment & Plan: Patient states she is having a little bit of nausea today unsure of the underlying cause but will provide some Zofran to use as needed. If symptoms worsen she needs to follow-up. Other orders - ondansetron (Zofran) 4 mg tablet; Take 1 tablet (4 mg total) by mouth every 8 (eight) hours as needed for nausea or vomiting Coordination of Home care services and follow-up with specialist appointments confirmed. Instructions have been provided to and reviewed with the patient/long term care social worker prior to discharge. RACHID Rogers Cosigned by Cuba Larsen MD at 06/03/2021 8:39 AM CDT documented in this encounter Miscellaneous Notes * Assessment & Plan Note - Linda Frost PA - 06/02/2021 9:59 AM CDT Associated Problem(s): Nausea (Resolved 08/13/2022) Patient states she is having a little bit of nausea today unsure of the underlying cause but will provide some Zofran to use as needed. If symptoms worsen she needs to follow-up. * Assessment & Plan Note - Linda Frost PA - 06/02/2021 9:53 AM CDT Associated Problem(s): Closed fracture of distal end of left fibula with routine healing (Resolved 10/09/2022) Patient sustained a distal fibular fracture after falling related to the stroke. She is currently in a boot. She needs to see Orthopedics and has been scheduled at [facility] that would prefer to be seen in the shadow area. Will make referral to Ortho in [place] for definitive management of this ankle fracture. * Assessment & Plan Note - Linda Frost PA - 06/02/2021 9:52 AM CDT Associated Problem(s): Cerebrovascular accident (CVA) due to occlusion of cerebral artery (HCC) (Deleted) Patient status post CVA status post thrombectomy with reperfusion. Patient had great results. She feels as though her left-sided symptoms have almost completely resolved. Home health is scheduled to follow-up with her to assess for PT OT. She is back on her Eliquis for stroke prevention secondary to the AFib. She has follow-up with Cardiology. Patient is on anticoagulant and statin. Aspirin is on hold per Cardiology * Assessment & Plan Note - Linda Frost PA - 06/02/2021 9:51 AM CDT Associated Problem(s): Iron deficiency anemia (Resolved 03/03/2023) Patient has noted anemia over the last [...] voicing an increased nausea today so hesitant tostart her on iron supplementation. Will discuss further with PCP at her Thursday appointment. * Assessment & Plan Note - Linda Frost PA - 06/02/2021 9:50 AM CDT Associated Problem(s): History of nephrolithiasis History of kidney stones with recent lithotripsy. Patient has follow-up with Urology for continued management of the kidney stones. * Assessment & Plan Note - Linda Frost PA - 06/02/2021 9:49 AM CDT Associated Problem(s): Dysuria (Resolved 10/21/2021) Pt presents with dysuria. Urine dip completed. Send urine culture. The deployed pretty clear. She has no hematuria. Will hold off on antibiotic until culture is available. If she starts running fever chills or sweats she is to contact the office immediately * Assessment & Plan Note - Linda Frost PA - 06/02/2021 9:49 AM CDT Associated Problem(s): Anxiety (Resolved 03/03/2023) See depression * Assessment & Plan Note - Linda Frost PA - 06/02/2021 9:49 AM CDT Associated Problem(s): Moderate episode of recurrent major depressive disorder (HCC) Patient with depression. Her Xanax was stopped in the hospital due to increased fall risk. She was started on fluoxetine 40 mg. She has not been on it for extended amount of time so will take time for it to kick in. Patient is aware of this and willing to monitor. * Assessment & Plan Note - Linda Frost PA - 06/02/2021 9:48 AM CDT Associated Problem(s): Essential hypertension BP is running on the high end today. She is status post stroke so will let it run a little high. She is to monitor at home. She will follow-up with Bhargav pickard with on Thursday and bring the readings in with her. Encouraged to limit sodium intake and exercise for weight control. * Assessment & Plan Note - Linda Frost PA - 06/02/2021 9:47 AM CDT Associated Problem(s): Acquired hypothyroidism Check labs. Continue levothyroxine 50 mcg * Assessment & Plan Note - Linda Frost PA - 06/02/2021 9:46 AM CDT Associated Problem(s): Atrial fibrillation with RVR (CMS/HCC) (HCC) (Deleted) Patient was known AFib. 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 She would prefer to see a cardiology in this area so will make the referral to Dr. sams at [facility]. She is currently on Eliquis b.i.d., Coreg 25 mg b.i.d. and Lasix with potassium supplementation. Continue to monitor heart rate and if sustains above 120 she is to follow up immediately in the ER. documented in this encounter Plan of Treatment Scheduled Orders Name Type Priority Associated Diagnoses Orde r Schedule Magnesium Lab Routine Essential hypertension Expected: 05/31/2021, Expires: 05/31/2022 documented as of this encounter Procedures Procedure Name Priority Date/Time Associated Diagnosis Comments POCT URINALYSIS DIPSTICK Routine 06/03/2021 8:00 AM CDT Dysuria COMPREHENSIVE METABOLIC PANEL Routine 06/02/2021 Essential hypertension URINE CULTURE Routine 05/31/2021 10:02 AM CDT Dysuria CBC WITH AUTO DIFFERENTIAL Routine 05/31/2021 Iron deficiency anemia due to chronic blood loss TSH Routine 05/31/2021 Hypothyroidism, unspecified type documented in this encounter Results * (ABNORMAL) POCT urinalysis dipstick (06/03/2021 8:00 AM CDT) Glucose, ur, POC Negative Negative mg/dL Bilirubin, ur, POC Negative Negative, Small, Moderate, Large Ketones, ur, POC Negative Negative Specific [place], POC 1.025 1.005 - 1.030 Blood, ur, POC Negative Negative pH, ur, POC 6.5 5.0 - 8.0 Protein, ur, POC Trace(A) Negative Urobilinogen, urine, POC 0.2 0.2 - 1.0 mg/dL Nitrite, ur, POC Negative Negative Leukocytes, ur, POC Negative Negative Lot Number [id number] Urine 06/03/2021 8:00 AM CDT Linda RASHID POINT OF CARE TEST ORDERAB LES Final Result * (ABNORMAL) Comprehensive metabolic panel (06/02/2021) SCRIBED Sodium 136(A) 137 - 145 mmol/L EXTERNAL LAB SCRIBED Potassium 3.1(A) 3.4 - 5.0 mmol/L EXTERNAL LAB SCRIBED Chloride 101 98 - 107 mmol/L EXTERNAL LAB SCRIBED Carbon Dioxide 25 22 - 30 mmol/L EXTERNAL LAB SCRIBED Anion Gap 10 8 - 16 mmol/L EXTERNAL LAB SCRIBED Urea Nitrogen (BUN) 16 7 - 17 mg/dl EXTERNAL LAB SCRIBED Creatinine 0.40(A) 0.7 - 1.0 mg/dl EXTERNAL LAB SCRIBED Glucose 166(A) 65 - 110 mg/dl EXTERNAL LAB SCRIBED Calcium 8.9 8.4 - 10.2 mg/dl EXTERNAL LAB SCRIBED Bilirubin 0.6 0.2 - 1.3 mg/dl EXTERNAL LAB SCRIBED Plasma Protein 7.0 6.3 - 8.2 g/dl EXTERNAL LAB SCRIBED Albumin 3.9 3.5 - 5.1 g/dl EXTERNAL LAB SCRIBED Alkaline Phosphatase 95 38 - 126 Units/L EXTERNAL LAB SCRIBED Alanine Transaminase (ALT) 23 4 - 35 Units/L EXTERNAL LAB SCRIBED Aspartate Transaminase (AST) 33 14 - 36 Units/L EXTERNAL LAB SCRIBED eGFR in 0 0 - 0 EXTERNAL LAB SCRIBED eGFR in NonAfrican [place] 0 0 - 0 EXTERNAL LAB Blood specimen (specimen) 06/02/2021 Linda RASHID LAB BLOOD ORDERABLES Final Result EXTERNAL LAB * Urine culture Urine, clean voided (05/31/2021 10:02 AM CDT) Urine culture [facility] Comment: ??CULTURE, URINE, ROUTINE ?Micro Number: ?[id number] ??Test Status: ? Final ??Specimen Source: ?? Urine ??Specimen Quality: ??Adequate ??Result: ?Mixed genital amanda isolated. These superficial ? bacteria are not indicative of a urinary tract ? infection. No further organism identification is ? warranted on this specimen. If clinically ? indicated, recollect clean-catch, mid-stream ? urine and transfer immediately to Urine Culture ? Transport Tube. Urine, clean voided 05/31/2021 10:02 AM CDT 06/01/2021 3:11 AM CDT Linda RASHID LAB MICROBIOLOGY - GENERAL ORDERABLES Final Result Performing Organization Address City/[facility]/ZIP Co de Phone Number Level [facility] [address] [place] [address] * TSH (05/31/2021) Pathologist [facility] Scribed TSH 2.61 0.47 - 4.68 mcU/mL EXTERNAL LAB Blood specimen (specimen) 05/31/2021 Linda RASHID LAB BLOOD ORDERABLES Final Result EXTERNAL LAB * (ABNORMAL) CBC with auto differential (05/31/2021) SCRIBED WBC 8.0 4.5 - 10 k/cumm EXTERNAL LAB SCRIBED RBC 3.26(A) 4.2 - 5.4 m/cumm EXTERNAL LAB SCRIBED Hemoglobin 8.6(A) 12 - 15 g/dL EXTERNAL LAB SCRIBED Hematocrit 28.4(A) 37 - 47 % EXTERNAL LAB SCRIBED MCH 26.4 26 - 34 pg EXTERNAL LAB SCRIBED MCHC 30.3(A) 32 - 36 g/dL EXTERNAL LAB SCRIBED RDW 17.1(A) 11.5 - 14.5 g/dl EXTERNAL LAB SCRIBED RDW SD 0 0 - 0 fL EXTERNAL LAB SCRIBED RDW CV 0 0 - 0 % EXTERNAL LAB SCRIBED Platelets 323 150 - 375 k/cumm EXTERNAL LAB SCRIBED MPV 9.6 7.4 - 10.4 fL EXTERNAL LAB SCRIBED NRBC 0.0 0.0 - 0.2 /100 WBC EXTERNAL LAB SCRIBED Lymphocytes 16.7(A) 18.3 - 44.2 % EXTERNAL LAB SCRIBED Atypical Lymphocytes 0 0 - 0 % EXTERNAL LAB SCRIBED Monocytes 5.2 2.6 - 8.5 % EXTERNAL LAB SCRIBED Neutrophils 6.2 1.3 - 6.7 % EXTERNAL LAB SCRIBED Imm Granulocytes 0.03 0.00 - 0.031 % EXTERNAL LAB SCRIBED Eosinophils 0.0 0 - 4.4 % EXTERNAL LAB SCRIBED Basophils 0.2 0.2 - 1.2 % EXTERNAL LAB SCRIBED NRBC Abs 0.0 0.0 - 0.012 K/cumm EXTERNAL LAB SCRIBED Lymphocytes Abs 1.34 0.9 - 3.2 k/cumm EXTERNAL LAB SCRIBED Monocytes Abs 0.4 0.1 - 0.6 k/cumm EXTERNAL LAB SCRIBED Neutrophils Abs 0 0 - 0 k/cumm EXTERNAL LAB SCRIBED Imm Granulocytes Abs 0 0 - 0 EXTERNAL LAB SCRIBED Eosinophils Abs 0 0 - 0 k/cumm EXTERNAL LAB SCRIBED Basophils Abs 0 0 - 0 k/cumm EXTERNAL LAB SCRIBED Bands 0 0 - 0 % EXTERNAL LAB SCRIBED Segs 0 0 - 0 % EXTERNAL LAB SCRIBED Total Cells Diffed 0 0 - 0 EXTERNAL LAB SCRIBED MCV 87.1 80 - 100 mL EXTERNAL LAB Blood specimen (specimen) 05/31/2021 us Linda RASHID LAB BLOOD ORDERABLES Final Result EXTERNAL LAB documented in this encounter Visit Diagnoses Diagnosis Cerebrovascular accident (CVA) due to occlusion of cerebral artery (HCC)- Primary Essential hypertension Unspecified essential hypertension Dysuria Iron deficiency anemia due to chronic blood loss Iron deficiency anemia secondary to blood loss (chronic) Hypothyroidism, unspecified type Anxiety Anxiety state, unspecified Moderate episode of recurrent major depressive disorder (HCC) Atrial fibrillation with RVR (CMS/HCC) (HCC) Closed fracture of distal end of left fibula with routine healing Nondisplaced fracture of distal end of left fibula History of nephrolithiasis Nausea Nausea alone documented in this encounter Discontinued Medications Medication Sig Discontinue Reason Start Date End Da te zolpidem (AMBIEN) 10 mg tabletIndications:Sleep disturbance Take 1 tablet (10 mg total) by mouth nightly as needed for sleep for sleep Therapy completed 04/29/2021 05/31/2021 documented as of this encounter Historical Medications * This list may reflect changes made after this encounter. multivitamin,tx-i kah-Su-OW-min 27-0.4 mg tablet Take 1 tablet by mouth daily 06/17/2021 added in this encounter Care Teams Wagon Driver Relationship Specialty Start Date End Date Ryann Galdamez PA PCP - General Er Physician 04/02/21 01/22/22 documented as of this encounter
--- OUTSIDE RECORDS SUMMARY | 2024-03-13 01:11 | XMS_ITS | Encounter Summary ---
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 documented in this encounter Plan of Treatment Not on file documented as of this encounter Visit Diagnoses Not on filedocumented in this encounter Care Teams Press Hand Supervisor Relationship Specialty Start Date End Date Ryann Galdamez PA PCP - General Survey Technician 04/02/21 01/22/22 documented as of this encounter
--- OUTSIDE RECORDS SUMMARY | 2024-03-13 01:12 | XMS_ITS | Encounter Summary ---
Author Organization [facility] Address [address] [place] [address] Phone Care Team Providers Care Cop Breaker Name Role Phone Ryann Galdamez Primary Care Provider +1- [phone] Reason for Visit * Reason Onset Date Comments needs to r/s appt with any Hear Failure doc 04/2021 Encounter Details Date Type Department Care Team (Late st Contact Info) Description 05/15/2021 Telephone [facility] Cardiology [address] [facility] [address] [place] [address] Cathleen Walker MD [address] [place] [address] [address] [facility] [place] [address] needs to r/s appt with any Hear Failure doc Social History Tobacco Use Types Packs/Day Years [...] more points, staff should administer the PHQ-9) 3 03/21/2021 Comments No Sex and Gender Information Value Date Recorded Sex Assigned at Not on file Legal Sex Female 4:20 AM MANAGER CONCRETE Gender Identity Not on file Sexual Orientation Not on file documented as of this encounter Miscellaneous Notes * Telephone Encounter - Keturah Gallardo - 05/15/2021 10:19 AM CST Spoke to pt about r/s her appt with Dr Walker. She stated that she wanted to speak with her PCP about this before scheduling with anyone. She asked that the appt be cancelled and she will call backto r/s when she has decided on a dr. GER CONCRETE documented in this encounter Plan of Treatment Not on file documented as of this encounter Visit Diagnoses Not on filedocumented in this encounter Care Teams Cop Breaker Relationship Specialty Start Date End Date yRann Galdamez PA PCP - General Business Office Assistant 04/02/21 01/22/22 documented as of this encounter
--- OUTSIDE RECORDS SUMMARY | 2024-03-13 01:12 | XMS_ITS | Encounter Summary ---
Author Organization [facility] Address [address] [place] [address] Phone Care Team Providers Care Volunteer Recruitment Coordinator Name Role Phone Ryann Galdamez Primary Care Provider +1- [phone] Reason for Referral * Consultation (Routine) - Closed Specialty Diagnoses / Procedures Referred By Contac t Referred To Contact Cardiology Diagnoses Essential hypertension Atrial fibrillation, unspecified type (HCC) Chronic heart failure with preserved ejection fraction (CMS/HCC) (HCC) Cathleen Walker MD Phone: tel: fax: [facility] (All Locations) Referral ID Status Reason Start Date Expiration Date V isits Requested Visits Authorized [id number] Closed Specialty Services Required 01/02/2022 01/01/2023 12 12 Question Answer Please select the performing region: [facility] (All Locations) [[id number]] # of visits: 1 P[facility] PRELIMINARY Reason for Visit * Consultation (Routine) - Closed Specialty Diagnoses / Procedures Referred By Contac t Referred To Contact Cardiology Diagnoses Essential hypertension Atrial fibrillation, unspecified type (HCC) Chronic heart failure with preserved ejection fraction (CMS/HCC) (HCC) Cathleen Walker MD Phone: tel: fax: [facility] (All Locations) Referral ID Status Reason Start Date Expiration Date V isits Requested Visits Authorized [id number] Closed Specialty Services Required 01/02/2022 01/01/2023 12 12 Encounter Details Date Type Department Care Team (Late st Contact Info) Description 04/15/2021 11:45 AM STRIP[facility] PRELIMINARY Office Visit [facility] Cardiology [address] 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 (CMS/HCC) (HCC) Social History Tobacco Use Types [...] on file Legal Sex Female 4:20 AM STRIPPER PRELIMINARY Gender Identity Not on file Sexual Orientation Not on file documented as of this encounter Last Filed Vital Signs Vital Sign Reading Time Taken Comments Blood Pressure 98/77 04/15/2021 11:35 AM STRIPPER PRELIMINARY Pulse 76 04/15/2021 11:35 AM STRIPPER PRELIMINARY Temperature - - Respiratory Rate - - Oxygen Saturation 97% 04/15/2021 11:35 AM STRIPPER PRELIMINARY Inhaled Oxygen Concentration - - Weight 69.6 kg (153 lb 6.4 oz) 04/15/2021 11:35 AM STRIPPER PRELIMINARY Height 157.5 cm (5' 2 ) 04/15/2021 11:35 AM STRIPPER PRELIMINARY Body Mass Index 28.06 04/15/2021 11:35 AM STRIPPER PRELIMINARY documented in this encounter Patient Instructions * Patient Instructions* Cathleen Walker MD - 04/15/2021 11:45 AM STRIPPER PRELIMINARY Stop diltiazem Stop spironolactone Return in 6 months P[facility] PRELIMINARY documented in this encounter Progress Notes * Cathleen Walker MD - 04/15/2021 11:45 AM CST Images from the original note were not included. Cardiovascular Division Provider: Cathleen Walker MD Primary care Physician Ryann Galdamez, RACHID [address] [place] [address] Patient Name: Prema Pearce Date of : 1940 Date of Visit: 04/15/2021 PRINCIPAL AND SECONDARY DIAGNOSES: 1. Persistent atrial fibrillation ?? DCCV and sotalol intiation ~ 2009, discontinued 12/2018 ?? Treated with rate control until submassive pulmonary emboli in 05/2019, amiodarone initiated ?? Amiodarone discontinued 06/2019 due GI side effects 2. 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 Echocardiogram 05/2019 with LVEF 38%, down from 51% and RV enlargement and dysfunction, occurred in setting of AF with RVR and submassive pulmonary embolism ?? LVEF 66%, August 2020 3. Aortic stenosis, moderate 4. Moderate CAD on 08/2020 [facility] 5. Submassive pulmonary embolism 05/2019, provoked, occurred 1 week after left distal femoral replacement for an open fracture 6. Right lower extremity DVT 05/2019 7. Hypertension 8. Diabetes mellitus type II, insulin dependent 9. Obstructive sleep apnea, on CPAP 10. Hypothyroidism 11. Left adrenal nodule Prema Pearce is a 81 y.o. female who presents today at the [facility] in [place] for follow-up on her exertional dyspnea. Still struggling with her 's passing in September 2020. Has lost from 200+ lbs to 160 today sinceJuly 2020. Has no appetite or interested in appetite. Has been working with her PCP and is contemplative to working with a mental health provider for her depression Since her last visit 11/16/2020, Was started on [place] for elevate BPs. Today BP 98/77 on machine and ~105/70 on manual pressure, which is atypical vs. Her home readings. Reports lightheadedness/dizziness, no falls or LOC. Reports stable exertional dyspnea. Adherent to CPAP machine. No orthopnea, PND, or lower extremity edema. Does not currently feel palpitations although did prior 2/2 her Afib. She denies any chest pain. CURRENT MEDICATIONS: Current Outpatient Medications: ??? acetaminophen (TYLENOL) 500 mg tablet ??? ALPRAZolam (XANAX) 0.5 mg tablet ??? CALCIUM CARBONATE ORAL ??? carvediloL (COREG) 25 mg tablet ??? dilTIAZem CD 120 mg 24 hr capsule ??? Eliquis 5 mg tablet ??? furosemide (LASIX) 40 mg tablet ??? glipiZIDE (GLUCOTROL) 10 mg tablet ??? levothyroxine (SYNTHROID) 50 mcg tablet ??? metFORMIN (GLUCOPHAGE) 500 mg tablet ??? spironolactone (ALDACTONE) 25 mg tablet ??? zolpidem (AMBIEN) 10 mg tablet ??? aspirin 81 mg enteric coated tablet ??? FLUoxetine (PROzac) 20 mg capsule ??? rosuvastatin (CRESTOR) 20 mg tablet PHYSICAL EXAMINATION: Vitals: 04/15/21 1135 BP: 98/77 BP Location: Left arm Patient Position: Sitting Pulse: 76 SpO2: 97% Weight: 69.6 kg (153 lb 6.4 oz) Height: 157.5 cm (5' 2 ) GENERAL: Alert and oriented, well-nourished, in no acute distress. HEENT: Mucous membranes are moist. Sclerae white. No thyromegaly or lymphadenopathy. LUNGS: Normal effort and respiratory rate. Lungs clear to auscultation bilaterally. HEART: Normal rate, irregular rhythm. No murmur present. No rubs or gallops. ABDOMEN: Soft, non-tender, and non-distended. No hepatosplenomegaly. MUSCULOSKELETAL: 5+ strength in upper and lower extremities, bilaterally symmetric. NEUROLOGIC/PSYCH: Alert and oriented x4. Calm and appropriate affect. Grossly normal bilateral motor function and sensation. VASCULAR: Extremities warm and well-perfused. All pulses intact. No edema. No carotid bruit. No JVD. SKIN: No cyanosis, pallor, clubbing, or rashes. Psych: Sad mood with congruent affect; easily re-directable LABORATORY/DIAGNOSTICS: Lab Results Component Value Date CHOL 106 08/20/2020 LDLCALC 17 06/08/2019 HDL 36 (L) 08/20/2020 TRIG 174 (H) 08/20/2020 Lab Results Component Value Date NPROBNP 6,714 (H) 06/08/2019 PET/CT Stress 08/2020 IMPRESSION: 1. There is small size, moderate ischemia of inferolateral wall. 2. Normal left ventricular size and mildly reduced systolic function. 3. Flow quantification with low hyperemic MBF and MFR in the right coronary artery and left circumflex distribution consistent with above ischemia. Cardiac catheterization 09/2020 DIAGNOSTIC IMPRESSIONS 1. Mildly elevated left ventricular systolic pressure during the study. 2. Mildly elevated left ventricular end diastolic pressure during the study. 3. There is a gradient across the aortic valve of 20 mmHg on pullback. 4. There is no significant obstruction of the nome coronary arteries. There is, however, significant tortuosity of the coronary vessels, suggestive of hypertensive heart disease. IMPRESSION AND PLAN: 1. 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 She appears euvolemic and LVEF normal on recent echo. Elevated filling pressures on cardiac cath in 09/2020. Her activity levels remains low following the of her (09/2020) which could be limiting assessment. Her exertional dyspnea seems stable on her current regimen. Continue lasix 40 mg daily. Stop spironolactone. 2. Aortic stenosis. Moderate , continue to monitor. 3. Persistent atrial fibrillation. She is rate controlled on carvedilol. Stop dilitazem Continue Eliquis 4. Coronary artery disease. Non-obstructive coronary artery disease. She denies improvement in her symptoms with imdur and exertional dyspnea has been stable since discontinuation. Continue aspirin, statin. LDL is at goal. Will not resume isosorbide. 5. Hypertension. Blood pressure is low in clinic and has symptomatic dizziness/lightheadedness. Will d/c robert and dilt. CTM 6. Depression: No SI/HI. Medication management per PCP. Encouraged patient to establish with mentalhealth provided Fred Main MD Internal Medicine, PGY-2 I have seen and examined the patient. I agree with the findings and plan of care as documented in the resident/fellow's note. My total encounter time on 04/15/2021 was 45 minutes which was spent in the activities documented in the note. This includes time spent prior to the visit and after the visitin direct care of the patient. This time does not include time spent in any separately reportable services. Cathleen Walker MD PPER PRELIMINARY documented in this encounter Plan of Treatment Scheduled Referrals Name Type Priority Associated Diagnoses Orde r Schedule Ambulatory referral to Cardiology Outpatient Referral Routine Essential hypertension Atrial fibrillation, unspecified type (HCC) Chronic heart failure with preserved ejection fraction (CMS/HCC) (HCC) Expected: 04/16/2021 (Approximate), Expires: 04/02/2022 documented as of this encounter Visit Diagnoses Diagnosis Essential hypertension- Primary Unspecified essential hypertension Atrial fibrillation, unspecified type (HCC) Chronic heart failure with preserved ejection fraction (CMS/HCC) (HCC) 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 (HCC) documented in this encounter Discontinued Medications Medication Sig Discontinue Reason Start Date End Da te zolpidem (AMBIEN) 10 mg tabletIndications:Sleep disturbance TAKE 1 TABLET BY MOUTH NIGHTLY NEEDED FOR SLEEP Duplicate order 04/01/2021 04/15/2021 spironolactone (ALDACTONE) 25 mg tablet Take 0.5 tablets (12.5 mg total) by mouth daily 03/05/2021 04/15/2021 dilTIAZem CD 120 mg 24 hr capsule TAKE 1 CAPSULE BY MOUTH EVERY DAY 10/25/2020 04/15/2021 documented as of this encounter Care Teams Volunteer Recruitment Coordinator Relationship Specialty Start Date End Date Ryann Galdamez PA PCP - General Human Services Care Specialist 04/02/21 01/22/22 documented as of this encounter
--- OUTSIDE RECORDS SUMMARY | 2024-03-13 01:12 | XMS_ITS | Encounter Summary ---
Author Organization [facility] Address [address] [place] [address] Care Team Providers Care Alliance Consultant Name Role Phone Ryann Galdamez Primary Care Provider +1- [phone] Ryann Galdamez Primary Care Provider +1- [phone] Encounter Details Date Type Department Care Team (Late st Contact Info) Description 03/21/2021 Telephone [facility] Family Medicine [address] [place] [address] Ryann Galdamez PA [facility] [place] [address] Social History Tobacco Use Types [...] on file Legal Sex Female 4:20 AM LINING IRONER Gender Identity Not on file Sexual Orientation Not on file documented as of this encounter Miscellaneous Notes * Telephone Encounter - Ryann Galdamez PA - 03/21/2021 3:35 PM LINING IRONER I spoke with patient and reviewed results from paper copy. Encouraged her to report to the er if symptoms are worsening. She will monitor for constipation with the norco and let us know if having difficulty. Discussed and advised referral for endocrinology for the adrenal nodule - she wants to wait at the current time and discuss in the near future. NG IRONER * Telephone Encounter - Elsi Porter MA - 03/21/2021 2:25 PM CST Pt called stating that she got her CT scan results back, but was unable to hear clearly and would like if you could interrupt them for her NG IRONER documented in this encounter Plan of Treatment Not on file documented as of this encounter Visit Diagnoses Not on filedocumented in this encounter Care Teams Alliance Consultant Relationship Specialty Start Date End Date Ryann Galdamez PA PCP - General Film Tests Checker 07/16/20 04/01/21 Ryann Galdamez PA PCP - General Film Tests Checker 04/02/21 01/22/22 documented as of this encounter
--- OUTSIDE RECORDS SUMMARY | 2024-03-13 01:12 | XMS_ITS | Encounter Summary ---
Author Organization [facility] Address [address] [facility] [address] [place] [address] Care Team Providers Care Import Dispatcher Name Role Phone Ryann Galdamez Primary Care Provider +1- [phone] Ryann Galdamez Primary Care Provider +1- [phone] Reason for Visit * Reason Onset Date Comments Blood in Urine 03/22/2021 Encounter Details Date Type Department Care Team (Late st Contact Info) Description 03/22/2021 Telephone [facility] Family Medicine [address] [facility] [address] [place] [address] Ryann Galdamez PA [address] [place] [address] Blood in Urine Social History Tobacco Use Types Packs/Day Years [...] file Legal Sex Female 4:20 AM 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 Called first thing this morning and was told they would enter the information into their system and call to get patient in as soon as possible. Informed patient. She will wait for their call. MOTIVE SERVICE MANAGER * Telephone Encounter - Linda Frost PA - 03/22/2021 8:16 AM AUTOMOTIVE SERVICE MANAGER Reviewed patient chart. CT yesterday showed multiple (B) kidney stones that were non-obstructing. She had gross hematuria yesterday that has continued. Pain is about the same per pt recall. She is making urine. Denies bladder pressure/pain. CMP - ok. GFR 53 H/H 11.7/36.7 She was sent home with Bactrim yesterday and is tolerating well. Urine culture was repeated and pending. 03/12 Urine culture showed Klebseiella and was treated with Macrobid and should have been susceptible. RECOMMEND: --Continue Bactrim --Keep pushing water --Please call Urology today and see if she can be seen today at any of their locations for multiplestones/hematuria. --Regardless, if she has increased pain, stops making urine or has a spike of temp to above 102 sheis to consider ER. MOTIVE SERVICE MANAGER * Telephone Encounter - Raiza Desir MA - 03/22/2021 7:43 AM CST Patient called and reported that when she urinated it was all blood. Enough that it splashed up on the rim of her toilet. I asked if she was able to still pass urine and she said earlier she passed asmall amount. She reports that she has dull pain in her back but more of an ache than anything. MOTIVE SERVICE MANAGER documented in this encounter Plan of Treatment Not on file documented as of this encounter Visit Diagnoses Not on filedocumented in this encounter Care Teams Import Dispatcher Relationship Specialty Start Date End Date Ryann Galdamez PA PCP - General Lozenge Maker Helper 07/16/20 04/01/21 Ryann Galdamez PA PCP - General Lozenge Maker Helper 04/02/21 01/22/22 documented as of this encounter
--- OUTSIDE RECORDS SUMMARY | 2024-03-13 01:12 | XMS_ITS | Encounter Summary ---
Author Organization [facility] Healthcare Address [address] [place] [address] Care Team Providers Care Camp Coordinator Name Role Phone Ryann Galdamez Primary Care Provider +1- [phone] Encounter Details Date Type Department Care Team (Late st Contact Info) Description 05/25/2021 8:51 PM WELDER APPRENTICE ARC Anesthesia Event [facility] Neuro Interventional Radiology [address] [place] [address] Chacorta Hylton MD [address] [facility] [place] [id number] [place] [address] Patricio White MD [address] [place] [address] Anesthesia Record Procedure Summary Procedure Name Responsible Anesthesiologist Anesthesia Start Time Anesthesia Stop Time PERCUTANEOUS ARTERIAL THROMBECTOMY, INTRACRANIAL Chacorta Hylton MD 05/25/21205005/25/212219 Events Date Time Event Comment 05/25/20212050 An Start 2050 An Start Data 2056 An Induction The patient was reevaluated immediately before moderate or deep sedation use and before anesthesia induction. 2057 An Intubation 2058 Anesthesia Ready 2115 2156 Quick Note Verapamil given by IR team 2211 an stop data 2219 Handoff to RN I completed my handoff [...] disposition at the time of handoff: PACU 2220 An Stop Meds Name Total lidocaine (cardiac) syringe 2 % 50 mg propofol 120 mg fentaNYL 100 mcg succinylcholine 80 mg rocuronium 30 mg phenylephrine 100 mcg/mL 200 mcg phenylephrine infusion (100 mcg/mL) 6.86 mg * Agents Name O2% N2O O2 N2O Air Sevoflurane Inspired Sevoflurane * Blood No blood administrations on file. Lines, Drains, and Airways Type Details Placement Removal RETIRED Surgical Site 05/22/19; 0840; Le ft; Leg; 08/07/23; 0700; Not present on admission 05/22/19 0840 by Aurelia Pederson RN 08/07/23 0700 by Gris Buck RN RETIRED Surgical Site 05/25/19; 1250; Le ft; Knee; 08/07/23; 0700; Not present on admission 05/25/19 1250 by Sukhjinder Gomez RN 08/07/23 0700 by Gris Buck RN RETIRED Negative Pressure Wound Therapy 06/10/19; 191; Surgical incision; Left; Knee; 08/07/23; 0700 06/10/19 191 by Maia Lee RN 08/07/23 07 by Gris Buck, ARMANI Peripheral IV Placement Date: 05/25/21; Placement Time: 1999; Existing LDA Placed by: EMS; Catheter Size: 20 G; Orientation: Left; Location: Antecubital; Inserted by: EMS; Removal Date: 05/25/21; Removal Time: 2109 (removed via procedure documentation) 05/25/211999 by Lilibeth Jefferson RN 05/25/212109 by Patricio White MD Peripheral IV Placement Date: 05/25/21; Placement Time: 2037; Catheter Size: 18 G; Orientation: Right; Location: Antecubital; Site Prep: Alcohol; Inserted by: ARMANI Blevins; Insertion Attempts: 1; Patient Tolerance: Tolerated well; Removal Date: 08/10/23; Removal Time: 1323; Removal Reason: Discharge 05/25/212037 by Lilibeth Jefferson RN 08/10/231323 by Gris Buck RN ETT Placement Date: 05/25/21; Placement Time: 2109 (created via procedure documentation); Mask Ventilation: 0; Technique: Video laryngoscopy; Type: ETT - single; Single Lumen Tube Size: 7 mm; Laryngoscope: Yaquelin; Blade Size: 3; Location: Oral; Insertion Attempts: 1; Placement Verification: Auscultation, Capnometry; Removal Date: 05/25/21; Removal Time: 225105/25/212109 by Patricio White MD 05/25/212251 by Loan Curry RRT Peripheral IV Placement Date: 05/25/21; Placement Time: 2109 (created via procedure documentation); Catheter Size: 18 G; Orientation: Left; Location: Hand; Site Prep: Alcohol; Insertion Attempts: 1; Removal Date: 08/07/23; Removal Time: 123405/25/212109 by Patricio White MD 08/07/231234 by Sherly Fox RN documented in this encounter Social History [...] on file Legal Sex Female 4:20 AM WELDER APPRENTICE ARC Gender Identity Not on file Sexual Orientation Not on file documented as of this encounter OR Notes * Anesthesia Postprocedure Evaluation - Vikas Paredes MD - 05/25/2021 10:20 PM CST Patient: Prema Pearce Procedure Summary Date: 05/25/21 Room / Location: [facility] Neuro Interventional Radiology Anesthesia Start: 2050 Anesthesia Stop: 2219 Procedure: PERCUTANEOUS ARTERIAL THROMBECTOMY, INTRACRANIAL Diagnosis: (R M2 occlusion) Scheduled Providers: Yung Ritchie MD Responsible Provider: Chacorta Hylton MD Anesthesia Type: general ASA Status: 3 - Emergent Anesthesia Type: general Last vitals BP 137/100 Pulse 98 Resp 20 SpO2 100% Anesthesia Post Evaluation Patient location during evaluation: ICU Patient participation: complete - patient cannot participate Level of consciousness: unconscious Pain score: unable to evaluate Pain management: adequate Airway patency: adequate Evidence of recall: unable to evaluate Cardiovascular status: acceptable Respiratory status: acceptable and ETT Hydration status: acceptable Pt is: normothermic Nausea/Vomiting status: none Comments: Pt transported to the neuro ICU intubated and sedated. She was HDS on phenylephrine gtt. After critical hookup, handoff was given to the ICU team who accepted care for the patient No complications documented. Cosigned by Chacorta Hylton MD at 05/25/2021 10:31 PM WELDER APPRENTICE ARC ER APPRENTICE ARC ER APPRENTICE ARC * Anesthesia Preprocedure Evaluation - Chacorta Hylton MD - 05/25/2021 9:16 PM CST Images from the original note were not included. Anesthesia Evaluation Prema Pearce is a 81 y.o. female * No procedures listed * * No Diagnosis Codes entered * Patient Active Problem List Diagnosis ??? Carotid bruit ??? Snoring ??? Paroxysmal atrial fibrillation (CMS/HCC) (HCC) ??? Open fracture of left distal femur (CMS/HCC) (HCC) ??? Closed displaced comminuted fracture of shaft of left femur (CMS/HCC) (HCC) ??? Atrial fibrillation with RVR (CMS/HCC) (HCC) ??? Acute pulmonary embolism with acute cor pulmonale (CMS/HCC) (HCC) ??? Hypothyroidism, unspecified ??? Obstructive sleep apnea ??? Type 2 diabetes mellitus without complications (CMS/HCC) (HCC) ??? Essential hypertension ??? Left femoral fracture ??? Pulmonary embolism (HCC) ??? Acute on chronic systolic CHF (congestive heart failure) (CMS/HCC) (HCC) ??? Chronic combined systolic (congestive) and diastolic (congestive) heart failure (HCC) ??? Gastro-esophageal reflux disease without esophagitis ??? Generalized anxiety disorder ??? Hyperlipidemia, unspecified ??? Hypertensive heart disease with heart failure (CMS/HCC) (HCC) ??? Hypokalemia ??? Insomnia, unspecified ??? group home (current) use of insulin (HCC) ??? Major depressive disorder, single episode, unspecified ??? Non-ST elevation (NSTEMI) myocardial infarction (CMS/HCC) (HCC) ??? Presence of left artificial knee joint ??? Slow transit constipation ??? Obesity (BMI 30-39.9) ??? Pica in adults ??? Thyroid nodule ??? Episode of recurrent major depressive disorder (HCC) ??? Anxiety ??? Sleep disturbance ??? Vitamin D deficiency ??? Encounter to establish care ??? Rib pain on left side ??? Dyspnea ??? Dizziness ??? Blister ??? Carpal tunnel syndrome of left wrist ??? BMI 32.0-32.9,adult ??? Fatigue ??? Tremor ??? Acute cystitis with hematuria ??? BMI 29.0-29.9,adult ??? Weight loss ??? Dysuria ??? Acute left flank pain ??? History of nephrolithiasis Past Medical History: Diagnosis Date ??? Adrenal [...] ??? INCISION AND DRAINAGE FEMUR Left 05/22/2019 OB History No obstetric history on file. Allergies Allergen Reactions ??? Amlodipine Shortness of breath ??? Prasanth Inhibitors Cough Reaction: COUGH, ??? Citalopram ??? Lisinopril Taking? Last Dose Start Date End Date Provider acetaminophen (TYLENOL) 500 mg tablet -- -- ProviderCameron MD ALPRAZolam (XANAX) 0.5 mg tablet () 04/22/21 05/22/21 Ryann Galdamez PA Take 1 tablet (0.5 mg total) by mouth 3 (three) times a day as needed for anxiety aspirin 81 mg enteric coated tablet 08/29/20 08/29/21 Cathleen Walker MD Take 1 tablet (81 mg total) by mouth daily Patient not taking: Reported on 04/15/2021 CALCIUM CARBONATE ORAL -- -- Cameron Pike MD carvediloL (COREG) 25 mg tablet 10/01/20 -- Cathleen Walker MD TAKE 1 TABLET BY MOUTH TWICE A DAY WITH FOOD Eliquis 5 mg tablet 09/19/20 -- Cathleen Walker MD TAKE 1 TABLET BY MOUTH TWICE A DAY furosemide (LASIX) 40 mg tablet 12/06/20 -- Cathleen Walker MD Take 1 tablet (40 mg total) by mouth daily Notes: Decreased dose 40 mg daily glipiZIDE (GLUCOTROL) 10 mg tablet 02/19/21 -- Ryann Galdamez PA TAKE 1 TABLET BY MOUTH 2 TIMES A DAY BEFORE BREAKFAST AND LUNCH levothyroxine (SYNTHROID) 50 mcg tablet 01/21/21 01/21/22 Ryann Galdamez PA Take 1 tablet (50 mcg total) by mouth daily metFORMIN (GLUCOPHAGE) 500 mg tablet 03/05/21 -- Linda Frost PA TAKE 1 TABLET BY MOUTH TWICE A DAY WITH MEALS rosuvastatin (CRESTOR) 20 mg tablet 09/11/20 -- Cathleen Walker MD TAKE 1 TABLET BY MOUTH EVERY DAY Patient not taking: Reported on 04/15/2021 zolpidem (AMBIEN) 10 mg tablet 04/29/21 -- Ryann Galdamez PA Take 1 tablet (10 mg total) by mouth nightly as needed for sleep for sleep Notes: Not to exceed 5 additional fills before 07/03/2021 No current facility-administered medications for this encounter. Facility-Administered Medications Ordered in Other Encounters: ??? fentaNYL (SUBLIMAZE) preservative free injection, , intravenous, PRN, 50 mcg at 05/25/212056 ??? lidocaine (cardiac) (XYLOCAINE) preservative free injection, , intravenous, PRN, 50 mg at 05/25/212056 ??? phenylephrine (LAZARO-SYNEPHRINE) 1 mg/10 mL (100 mcg/mL) in sodium chloride 0.9% (premix), , intravenous, PRN, 100 mcg at 05/25/212111 ??? phenylephrine (LAZARO-SYNEPHRINE) 5 mg/50 mL (100 mcg/mL) in sodium chloride 0.9% (premix), , intravenous, Continuous PRN, Last Rate: 46.68 mL/hr at 05/25/212111, 1 mcg/kg/min at 05/25/212111 ??? propofoL (DIPRIVAN) 10 mg/mL IV, , intravenous, PRN, 120 mg at 05/25/212056 ??? rocuronium (ZEMURON) injection, , intravenous, PRN, 10 mg at 05/25/212112 ??? succinylcholine (ANECTINE) injection, , intravenous, PRN, 80 mg at 05/25/212056 Social History Tobacco Use Smoking Status Never Smoker Smokeless Tobacco Never Used Substance and Sexual Activity Alcohol Use Yes Comment: 1/mo Substance and Sexual Activity Drug Use Never [...] TW Conv) ??? Anesthesia problems Neg Hx Vitals: 05/25/21195205/25/21202905/25/212049 BP: (!) 141/112 159/99 137/100 Pulse: 86 112 98 Resp: SpO2: 100% 98% 100% PT: No results found for requested labs within last 720 hours. INR: No results found for requested labs within last 720 hours. APTT: 05/25/2021: 23 sec (L) Hgb A1C: No results found for requested labs within last 720 hours. CBC RBC: 05/25/2021: 3.41 M/cumm (L) RDW: No results found for requested labs within last 720 hours. MCHC: 05/25/2021: 31.5 g/dL (L) MCH: 05/25/2021: 26.4 pg (L) MCV: 05/25/2021: 83.9 fL Hct: 05/25/2021: 28.6 % (L) Hgb: 05/25/2021: 9.0 g/dL (L) WBC: 05/25/2021: 9.9 K/cumm MPV: 05/25/2021: 9.9 fL Platelets: 05/25/2021: 240 K/cumm RDW CV: 05/25/2021: 16.3 % (H) RDW Sd: 05/25/2021: 50.3 fL (H) BMP Glucose: 05/25/2021: 107 mg/dL Calcium: 05/25/2021: 9.1 mg/dL Sodium: 05/25/2021: 136 mmol/L Potassium: 05/25/2021: 4.2 mmol/L CO2: 05/25/2021: 26 mmol/L Chloride: 05/25/2021: 102 mmol/L BUN: 05/25/2021: 29 mg/dL (H) Creatinine: 05/25/2021: 1.15 mg/dL (H) DOS Physical Exam Medical history, medications, and allergies not reviewed. Attestation: True emergency - No H&P 05/25/2021. Airway Exam: Mallampati: II Cervical ROM: limited extension TM distance: 3 Cardiovascular Exam: Rate: tachycardia Rhythm: irregular Anesthesia Plan ASA 3- emergent My patient is approved for the Anesthesia Controlled Medication protocol when under care of a DEPARTMENT STORE MANAGER Planned anesthesia: General Team communication plan: oral ET tube Induction: Induction: intravenous. Postoperative Plan: No postoperative mechanical ventilation intended. Patient's planned disposition post procedure is ICU. Informed Consent: Discussed plan with resident. Anesthesia plan and risks discussed with not discussed. Consent and Attending signature: I and/or my designee have discussed the anesthesia plan, benefits, possible alternatives, parental presence at time of induction (if indicated), and clinically relevant risks that may include dental injury, unintentional awareness, and/or other complications. The patient and/or parent/legal guardian understand, and agree to proceed. All questions answered. ER APPRENTICE ARC * Anesthesia Procedure Notes - Patricio White MD - 05/25/2021 9:10 PM CSTAssociated Order(s): Peripheral IV Catheter Peripheral IV Catheter Patient location: OR Staff: Supervising provider: Cahcorta Hylton MD Placed by: Resident: Patricio White MD Preprocedure prep: Prep solution: alcohol PPE: gloves and provider hat/mask PIV line: Laterality: left Site: hand Catheter size: 18 g Technique: direct visualization Procedure details: good blood return and occlusive dressing applied Number of attempts: 1 ER APPRENTICE ARC * Anesthesia Procedure Notes - Patricio White MD - 05/25/2021 9:09 PM CSTAssociated Order(s): Airway Airway Patient location: OR Urgency: elective Indications for airway management: anesthesia Difficult airway: no Staff: Supervising provider: Chacorta Hylton MD Placed by: Resident: Patricio White MD Emergent airway documentation: Risks and benefits discussed: yes Consent obtained: yes Consent given by: patient Airway prep: Preoxygenated: yes Patient position: sniffing Mask difficulty assessment: 0 - not attempted Spontaneous ventilation during airway: absent Sedation level during airway: GA Final airway details: Final airway type: endotracheal airway Tube type: ETT ETT size: 7.0 mm Technique used for successful ETT placement: video laryngoscopy Devices/Methods used in placement: stylet Insertion site: oral Blade type: Yaquelin Video blade type: Kenney Blade size: 3 Cormack-Lehane (video): grade I - full view of glottis ETT to teeth: 20 cm Placement verified by: auscultation and CO2 detection Airway secured with: silk tape Number of attempts: 1 Planned trial extubation: yes ER APPRENTICE ARC documented in this encounter Plan of Treatment Not on file documented as of this encounter Procedures Procedure Name Priority Date/Time Associated Diagnosis Comments PERIPHERAL LINE Routine 05/25/2021 9:10 PM WELDER APPRENTICE ARC ANESTHESIA INTUBATION Routine 05/25/2021 9:09 PM WELDER APPRENTICE ARC documented in this encounter Results * Peripheral IV Catheter (05/25/2021 9:10 PM WELDER APPRENTICE ARC) Narrative Patricio White MD - 05/25/2021 9:10 PM WELDER APPRENTICE ARC Patricio White MD ? 05/25/2021 ??9:10 PM Peripheral IV Catheter Patient location: OR Staff: Supervising provider: Chacorta Hylton MD Placed by: Resident: Patricio White MD Preprocedure prep: Prep solution: alcohol PPE: gloves and provider hat/mask PIV line: Laterality: left Site: hand Catheter size: 18 g Technique: direct visualization Procedure details: good blood return and occlusive dressing applied Number of attempts: 1 Chacorta Hylton MD ANESTHESIA ORDERABLES Final Re sult * Airway (05/25/2021 9:09 PM WELDER APPRENTICE ARC) Narrative Patricio White MD - 05/25/2021 9:09 PM WELDER APPRENTICE ARC Patricio White MD ? 05/25/2021 ??9:10 PM Airway Patient location: OR Urgency: elective Indications for airway management: anesthesia Difficult airway: no Staff: Supervising provider: Chacorta Hylton MD Placed by: Resident: Patricio White MD Emergent airway documentation: Risks and benefits discussed: yes Consent obtained: yes Consent given by: patient Airway prep: Preoxygenated: yes Patient position: sniffing Mask difficulty assessment: 0 - not attempted Spontaneous ventilation during airway: absent Sedation level during airway: GA Final airway details: Final airway type: endotracheal airway Tube type: ETT ETT size: 7.0 mm Technique used for successful ETT placement: video laryngoscopy Devices/Methods used in placement: stylet Insertion site: oral Blade type: Yaquelin Video blade type: Kenney Blade size: 3 Cormack-Lehane (video): grade I - full view of glottis ETT to teeth: 20 cm Placement verified by: auscultation and CO2 detection Airway secured with: silk tape Number of attempts: 1 Planned trial extubation: yes Chacorta Hylton MD ANESTHESIA ORDERABLES Final Re sult documented in this encounter Visit Diagnoses Not on filedocumented in this encounter Administered Medications Inactive Administered Medications - up to 3 most recent administrations Medication Order MAR Action Action Date Dose Rate Site fentaNYL (SUBLIMAZE) preservative free injection intravenous, As needed, Starting on 05/25/21 at 2056, Anesthesia Intra-op Given 05/25/2021 9:54 PM WELDER APPRENTICE ARC 50 mcg Given 05/25/2021 8:57 PM WELDER APPRENTICE ARC 50 mcg lidocaine (cardiac) (XYLOCAINE) preservative free injection intravenous, As needed, Starting on 05/25/21 at 2056, Anesthesia Intra-op, Indications: Ventricular ArrhythmiasIndications:Ventricular Arrhythmias Given 05/25/2021 8:57 PM WELDER APPRENTICE ARC 50 mg phenylephrine (LAZARO-SYNEPHRINE) 1 mg/10 mL (100 mcg/mL) in sodium chloride 0.9% (premix) intravenous, As needed, Starting on 05/25/21 at 2111, Anesthesia Intra-op Given 05/25/2021 9:32 PM WELDER APPRENTICE ARC 100 mcg Given 05/25/2021 9:12 PM WELDER APPRENTICE ARC 100 mcg phenylephrine (LAZARO-SYNEPHRINE) 5 mg/50 mL (100 mcg/mL) in sodium chloride 0.9% (premix) intravenous, Continuous PRN, Starting on 05/25/21 at 2056, Anesthesia Intra-op Rate/Dose Change 05/25/2021 9:51 PM WELDER APPRENTICE ARC 1.2 mcg/kg/min 56.016 mL/hr Rate/Dose Change 05/25/2021 9:45 PM WELDER APPRENTICE ARC 1.3 mcg/kg/min 60. 684 mL/hr Rate/Dose Change 05/25/2021 9:39 PM WELDER APPRENTICE ARC 1.4 mcg/kg/min 65. 352 mL/hr propofoL (DIPRIVAN) 10 mg/mL IV intravenous, As needed, Starting on 05/25/21 at 2056, Anesthesia Intra-op Given 05/25/2021 8:57 PM WELDER APPRENTICE ARC 120 mg rocuronium (ZEMURON) injection intravenous, As needed, Starting on 05/25/21 at 2056, Anesthesia Intra-op Given 05/25/2021 9:51 PM WELDER APPRENTICE ARC 10 mg Given 05/25/2021 9:13 PM WELDER APPRENTICE ARC 10 mg Given 05/25/2021 8:57 PM WELDER APPRENTICE ARC 10 mg succinylcholine (ANECTINE) injection intravenous, As needed, Starting on 05/25/21 at 2056, Anesthesia Intra-op Given 05/25/2021 8:57 PM WELDER APPRENTICE ARC 80 mg documented in this encounter Care Teams Camp Coordinator Relationship Specialty Start Date End Date Ryann Galdamez PA PCP - General Casting Tester 04/02/21 01/22/22 documented as of this encounter
--- OUTSIDE RECORDS SUMMARY | 2024-03-13 01:12 | XMS_ITS | Encounter Summary ---
Author Organization [facility] Address [address] [place] [address] Care Team Providers Care Plate Grainer Apprentice Name Role Phone Ryann Galdamez Primary Care Provider +1- [phone] Encounter Details Date Type Department Care Team (Late st Contact Info) Description 03/28/2021 Telephone [facility] Family Medicine [address] [place] [address] Ryann Galdamez PA [facility] [place] [address] Social History Tobacco Use Types [...] on file Legal Sex Female 4:20 AM SKIN CARE INSTRUCTOR Gender Identity Not on file Sexual Orientation Not on file documented as of this encounter Ordered Prescriptions Prescription Sig Dispense Quantity Refills Last Filled Start Date End Date sulfamethoxazole-t rimethoprim (BACTRIM DS) 800-160 mg per tablet Take 1 tablet by mouth 2 (two) times a day for 10 days 20 tablet 03/28/2021 04/07/2021 documented in this encounter Miscellaneous Notes * Addendum Note - Ryann Galdamez PA - 03/28/2021 4:24 PM CSTAddended by: RYANN GALDAMEZ on: 03/28/2021 04:24 PM Modules accepted: Orders CARE INSTRUCTOR * Telephone Encounter - Raynn Galdamez PA - 03/28/2021 4:23 PM SKIN CARE INSTRUCTOR I spoke with Mrs. Pearce. Over the next week she has a cystoscopy planned. She notes that she's feeling tired and a little overwhelmed with it all. I will send in bactrim for her to continue as she'sconcerned her urine is still cloudy even with increasing her water intake. She will keep us updatedas to the appt in the next week. CARE INSTRUCTOR * Telephone Encounter - Raiza Desir MA - 03/28/2021 2:13 PM CST Note should have stated she finished her antibiotics two days ago. She wanted to know if she shouldget more. She is seeing Dr. Jara at [facility] Urolog She is getting a CT AB/ Pelvis W/WO in his office on 04/04/2020. I will cancel the CT scheduled at [facility]. Patient wants to talk to provider. CARE INSTRUCTOR * Telephone Encounter - Dash Anderson MA - 03/28/2021 12:48 PM SKIN CARE INSTRUCTOR Patient in called about UTI. She was today by urology that state she has blood in her urine. But took her antibiotic day before yesterday. Would like to do talk with the provider personal. CARE INSTRUCTOR documented in this encounter Plan of Treatment Not on file documented as of this encounter Visit Diagnoses Not on filedocumented in this encounter Care Teams Plate Grainer Apprentice Relationship Specialty Start Date End Date Ryann Galdamez PA PCP - General Drum Sealer 07/16/20 04/01/21 documented as of this encounter
--- OUTSIDE RECORDS SUMMARY | 2024-03-13 01:12 | XMS_ITS | Encounter Summary ---
Author Organization [facility] Address [address] [place] [address] Phone Care Team Providers Care Supervisor Electronic Testing Name Role Phone Ryann Galdamez Primary Care Provider +1- [phone] Encounter Details Date Type Department Care Team (Late st Contact Info) Description 05/14/2021 Telephone [facility] Cardiology [address] [place] [address] [place] [address] Cathleen Walker MD [address] [facility] [facility] [address] [place] [address] Social History Tobacco Use Types [...] on file Legal Sex Female 4:20 AM SEAFOOD CLERK Gender Identity Not on file Sexual Orientation Not on file documented as of this encounter Miscellaneous Notes * Telephone Encounter - Paulina Bright RN - 05/14/2021 1:31 PM SEAFOOD CLERK Will have DW sign and then fax OOD CLERK * Telephone Encounter - Alise Anderson - 05/14/2021 12:39 PM CST cardiac clearance CALLER NAME: SHAY TREJO FACILITY NAME: [facility] PHONE NUMBER: [phone] EXT 40154 FAX NUMBER: [phone] TYPE OF SURGERY: LITHOTRIPSY NAME OF SURGEON: DR MIGEL COLBERT SCHEDULED FOR: 05/21/21 MEDICATION TO BE HELD: FOR DAYS COMMENTS: OOD CLERK documented in this encounter Plan of Treatment Not on file documented as of this encounter Visit Diagnoses Not on filedocumented in this encounter Care Teams Supervisor Electronic Testing Relationship Specialty Start Date End Date Ryann Galdamez PA PCP - General Wallpaper Inspector 04/02/21 01/22/22 documented as of this encounter
--- OUTSIDE RECORDS SUMMARY | 2024-03-13 01:12 | XMS_ITS | Encounter Summary ---
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 She has taken herself off of prozac. She has been taking xanax 0.25mg in AM, 0.5mg at noon, and 0.25mg in PM. Son has been airlifted to [place] due tocovid related lung illness, and she has a pending cystoscopy with urology that has her concerned. Will increase the xanax to 0.5mg tid prn anxiety, will send [facility]. She will let us know result of increase and if we can be of further assistance. E CURATIVE SPECIALIST documented in this encounter Plan of Treatment Not on file documented as of this encounter Visit Diagnoses Not on filedocumented in this encounter Discontinued Medications Medication Sig Discontinue Reason Start Date End Da te FLUoxetine (PROzac) 20 mg capsule Take 20 mg by mouth daily 04/22/2021 ALPRAZolam (XANAX) 0.5 mg tablet Take 1 tablet (0.5 mg total) by mouth 3 (three) times a day as needed for anxiety Reorder 03/12/2021 04/22/2021 documented as of this encounter Care Teams Auxiliary Operator Relationship Specialty Start Date End Date Ryann Galdamez PA PCP - General Mowing Machine Operator 04/02/21 01/22/22 documented as of this encounter
--- OUTSIDE RECORDS SUMMARY | 2024-03-13 01:12 | XMS_ITS | Encounter Summary ---
Author Organization [facility] Address [address] [place] [address] Care Team Providers Care English As A Second Language Instructor Name Role Phone Ryann Galdamez Primary Care Provider +1- [phone] Encounter Details Date Type Department Care Team (Late st Contact Info) Description 03/25/2021 Telephone [facility] Family Medicine [address] [place] [address] Ryann Galdamez PA [facility] [place] [address] Social History Tobacco Use Types [...] on file Legal Sex Female 4:20 AM DIGITAL RECRUITER Gender Identity Not on file Sexual Orientation Not on file documented as of this encounter Miscellaneous Notes * Telephone Encounter - Raiza Desir MA - 03/28/2021 3:00 PM CST [facility] referral is in chart. TAL RECRUITER * Telephone Encounter - Karoline Cooper LPN - 03/25/2021 5:24 PM DIGITAL RECRUITER Referral needed --- Doctor: Location: NPI: Dx: Phone: Fax: TAL RECRUITER * Telephone Encounter - Ryann Galdamez PA - 03/25/2021 8:27 AM DIGITAL RECRUITER I called [facility] of [facility] - patient has appt with the [place] [facility] on 03/27/21 at 930am. I called patient and notified her of this - she notes symptoms are improving but will plan on keeping the appt. Please send [facility] referral. TAL RECRUITER documented in this encounter Plan of Treatment Not on file documented as of this encounter Visit Diagnoses Not on filedocumented in this encounter Care Teams English As A Second Language Instructor Relationship Specialty Start Date End Date Ryann Galdamez PA PCP - General Product Management Specialist 07/16/20 04/01/21 documented as of this encounter
--- OUTSIDE RECORDS SUMMARY | 2024-03-13 01:12 | XMS_ITS | Encounter Summary ---
Author Organization [facility] Address [address] [place] [address] Phone Care Team Providers Care Vocational Coordinator Name Role Phone Ryann Galdamez Primary Care Provider [phone]- [phone] Encounter Details Date Type Department Care Team (Late st Contact Info) Description 05/14/2021 Telephone [facility] Cardiology [address] 8th [place] [address] [place] [address] Cathleen Walker MD [address] [place] [address] Social History Tobacco Use Types [...] on file 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 TRY SALES MANAGER * Telephone Encounter - Alise Anderson - 05/14/2021 12:42 PM CST ABE REQ OFFICE NOTE AND ANY TESTING. PT HAVING SURGERY ON 05/21. FAX [phone] TRY SALES MANAGER documented in this encounter Plan of Treatment Not on file documented as of this encounter Visit Diagnoses Not on filedocumented in this encounter Care Teams Vocational Coordinator Relationship Specialty Start Date End Date Ryann Galdamez PA PCP - General Substation Wireman 04/02/21 01/22/22 documented as of this encounter
--- OUTSIDE RECORDS SUMMARY | 2024-03-13 01:12 | XMS_ITS | Encounter Summary ---
Author Organization [facility] Address [address] [place] [address] Care Team Providers Care Explosive Expert Name Role Phone Ryann Galdamez Primary Care Provider [phone]- [phone] Encounter Details Date Type Department Care Team (Late st Contact Info) Description 03/18/2021 Telephone [facility] Family Medicine [address] [place] [address] Ryann Galdamez PA [facility] [place] [address] Social History Tobacco Use Types [...] PHQ-2 Answer Date Recorded PHQ-2 Total Score 6 03/12/2021 Comments No Sex and Gender Information Value Date Recorded Sex Assigned at Not on file Legal Sex Female 4:20 AM TRACK LAYER Gender Identity Not on file Sexual Orientation Not on file documented as of this encounter Ordered Prescriptions Prescription Sig Dispense Quantity Refills Last Filled Start Date End Date sulfamethoxazole-t rimethoprim (BACTRIM DS) 800-160 mg per tablet Take 1 tablet by mouth 2 (two) times a day for 7 days 14 tablet 03/18/2021 03/25/2021 documented in this encounter Miscellaneous Notes * Telephone Encounter - Ryann Galdamez PA - 03/18/2021 1:12 PM TRACK LAYER Call from patient - she is still having uti symptoms. I reviewed results of culture and her recent labs with her. Will start on bactrim bid x 7 days. She continues to have a scant libia hematuria at end of day x 1, discussed and offered uro referralbut she wants to see if symptoms resolve with the different antibiotic. She notes that she has felt a little more discouraged with increase in prozac, felt better on the 20mg with the prn xanax. Will update her med list. She additionally was exposed to daughter in law and son last week, and they have tested positive for covid in the last 24h. Patient reports that she is asymptomatic at this time and continues to quarantine. We discussed a covid test for exposure, she wants to pursue at [facility] or complete a home test. She will let us know if needing assistance or if symptoms develop. K LAYER documented in this encounter Plan of Treatment Not on file documented as of this encounter Visit Diagnoses Not on filedocumented in this encounter Discontinued Medications Medication Sig Discontinue Reason Start Date End Da te nitrofurantoin monohydrate (MACROBID) 100 mg capsule Take 1 capsule (100 mg total) by mouth 2 (two) times a day for 7 days 03/12/2021 03/18/2021 FLUoxetine (PROzac) 40 mg capsule Take 1 capsule (40 mg total) by mouth daily 03/12/2021 03/18/2021 documented as of this encounter Historical Medications * This list may reflect changes made after this encounter. FLUoxetine (PROzac) 20 mg capsule Take 20 mg by mouth daily 04/22/2021 added in this encounter Care Teams Explosive Expert Relationship Specialty Start Date End Date Ryann Galdamez PA PCP - General Asset Protection Greeter 07/16/20 04/01/21 documented as of this encounter
--- OUTSIDE RECORDS SUMMARY | 2024-03-13 01:12 | XMS_ITS | Encounter Summary ---
Author Organization [facility] Address [address] [place] [address] Care Team Providers Care Printed Circuit Boards Laminator Name Role Phone Ryann Galdamez Primary Care Provider [phone]- [phone] Ryann Galdamez Primary Care Provider +1- [phone] Chris Mendes MD Unavailable [phone] Keli Orozco RN Unavailable Unavailable Alysa Newton RN Unavailable [phone] Cuba Larsen MD Primary Care Provider Encounter Details Date Type Department Care Team (Late st Contact Info) Description 03/21/2021 Orders Only [facility] [address] [place] [address] Scanning, Provider Social History Tobacco Use Types [...] on file 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 Gender Identity Not on file Sexual Orientation Not on file documented as of this encounter Plan of Treatment Not on file documented as of this encounter Procedures Procedure Name Priority Date/Time Associated Diagnosis Comments SCAN - RADIOLOGY/IMAGING 03/21/2021 SCAN - RADIOLOGY/IMAGING 03/21/2021 documented in this encounter Results * SCAN - RADIOLOGY/IMAGING (03/21/2021) Anatomical Region Laterality Modality Other us Provider Scanning Final Result * SCAN - RADIOLOGY/IMAGING (03/21/2021) Anatomical Region Laterality Modality Other us Provider Scanning Final Result documented in this encounter Visit Diagnoses Not on filedocumented in this encounter Care Teams Printed Circuit Boards Laminator Relationship Specialty Start Date End Date Ryann Galdamez PA PCP - General Rn Clinician 07/16/20 04/01/21 Ryann Galdamez PA PCP - General Rn Clinician 04/02/21 01/22/22 Cuba Larsen MD [address] [facility] [address] [place] [address] PCP - General Family Medicine 01/23/22 Chris Mendes MD Referring Physician Cardiology 12/23/21 Keli Orozco, president trust companyAccount Development Executive Cardiology 12/23/21 04/15/23 Alysa Newton, RN [address] [facility] [address] [place] [address] Account Development Executive Cardiology 12/23/21 documented as of this encounter
--- OUTSIDE RECORDS SUMMARY | 2024-03-13 01:12 | XMS_ITS | Encounter Summary ---
Author Organization [facility] Address [address] [place] [address] Care Team Providers Care Chair Trimmer Name Role Phone Ryann Galdamez Primary Care Provider [phone]- [phone] Ryann Galdamez Primary Care Provider [phone]- [phone] Reason for Visit * Reason Onset Date Comments CT Chest 04/01/2021 Encounter Details Date Type Department Care Team (Late st Contact Info) Description 04/01/2021 Telephone [facility] Family Medicine [address] [place] [address] Ryann Galdamez PA [address] [place] [address] CT Chest Social History Tobacco Use Types Packs/Day Years [...] on file Legal Sex Female 4:20 AM DENTURE FINISHER Gender Identity Not on file Sexual Orientation Not on file documented as of this encounter Ordered Prescriptions Prescription Sig Dispense Quantity Refills Last Filled Start Date End Date zolpidem (AMBIEN) 10 mg tabletIndications: Sleep disturbance Take 1 tablet (10 mg total) by mouth nightly as needed for sleep for sleep 30 tablet 04/02/2021 2 documented in this encounter Miscellaneous Notes * Telephone Encounter - Ryann Galdamez PA - 04/02/2021 3:15 PM DENTURE FINISHER New order placed. URE FINISHER * Telephone Encounter - Raiza Desir MA - 04/01/2021 8:54 AM CST [facility] called regarding CT Chest that was scheduled on 04/04/2021. They wanted order changedto CT Chest W/WO contrast. Patient is scheduled to see Dr. Jara at [facility] the same day and get a CT AB/ Pelvis. The CT Chest was cancelled and taken out of system. A new order will need to be placed if needed. URE FINISHER documented in this encounter Plan of Treatment Not on file documented as of this encounter Visit Diagnoses Diagnosis Weight loss- Primary Loss of weight Sleep disturbance Unspecified sleep disturbance documented in this encounter Care Teams Chair Trimmer Relationship Specialty Start Date End Date Ryann Galdamez PA PCP - General Police Inspector 07/16/20 04/01/21 Ryann Galdamez PA PCP - General Police Inspector 04/02/21 01/22/22 documented as of this encounter
--- OUTSIDE RECORDS SUMMARY | 2024-03-13 01:12 | XMS_ITS | Encounter Summary ---
Author Organization [facility] Medical Group Address [address] [place] [address] Care Team Providers Care Senior Clinical Data Analyst Name Role Phone Ryann Galdamez Primary Care Provider [phone] Reason for Visit * Reason Comments Urinary Symptom blood in urine, unco mfortable Review Medications Encounter Details Date Type Department Care Team (Late st Contact Info) Description 03/12/2021 11:00 AM BILLING AUDITOR Office Visit [facility] Medical [facility] [address] [place] [address] Ryann Galdamez PA [facility] [place] [address] Sleep disturbance (Primary Dx); Anxiety; Episode of recurrent major depressive disorder, unspecified depression episode severity (HCC); Acute cystitis with hematuria; BMI 29.0-29.9,adult; Fatigue, unspecified type; Weight loss; Type 2 diabetes mellitus without complication, without long-term current use of insulin ([facility]/HCC) (HCC); Hypothyroidism, unspecified type; Dysuria Social History Tobacco Use Types Packs/Day Years [...] on file Legal Sex Female 4:20 AM BILLING AUDITOR Gender Identity Not on file Sexual Orientation Not on file documented as of this encounter Last Filed Vital Signs Vital Sign Reading Time Taken Comments Blood Pressure 118/78 03/12/2021 11:04 AM BILLING AUDITOR Pulse 61 03/12/2021 11:04 AM BILLING AUDITOR Temperature 36.6 ??C (97.9 ??F) 03/12/2021 11:[address] Respiratory Rate - - Oxygen Saturation 98% 03/12/2021 11:04 AM BILLING AUDITOR Inhaled Oxygen Concentration - - Weight 73.1 kg (161 lb 3.2 oz) 03/12/2021 11:04 AM BILLING AUDITOR Height 157.5 cm (5' 2 ) 03/12/2021 11:04 AM BILLING AUDITOR Body Mass Index 29.48 03/12/2021 11:04 AM BILLING AUDITOR documented in this encounter Ordered Prescriptions Prescription Sig Dispense Quantity Refills Last Filled Start Date End Date nitrofurantoin monohydrate (MACROBID) 100 mg capsule Take 1 capsule (100 mg total) by mouth 2 (two) times a day for 7 days 14 capsule 03/12/2021 2 ALPRAZolam (XANAX) 0.5 mg tablet Take 1 tablet (0.5 mg total) by mouth 3 (three) times a day as needed for anxiety 90 tablet 03/12/2021 2 FLUoxetine (PROzac) 40 mg capsule Take 1 capsule (40 mg total) by mouth daily 30 capsule 11 03/12/2021 2 documented in this encounter Progress Notes * Ryann Galdamez PA - 03/12/2021 11:00 AM CST Images from the original note were not included. Chief Complaint Urinary Symptom (blood in urine, uncomfortable ) and Review Medications HPI Here for f/u of depression, anxiety, niddm. Also noting uti symptoms. Onset in the last week, feeling uncomfortable and having urinary frequency. Not having any dysuria. History of left nephrolithiasis. No n/v/d. No fevers or chills. Not eating much, not much of an appetite. Eating healthy choice meals. Has lost weight intentionally. Sugar fluctuating, even with diet drinks. Spoke with cv recently, was encouraged to go to counseling. Notes that she struggles with this because of getting out of the house. Worried about sugar effecting her kidneys, it's always on her mind. Keeps her from eating. Allergies as of 03/12/2021 - Reviewed 03/12/2021 Allergen Reaction Noted ??? Amlodipine Shortness of breath 07/21/2019 ??? Prasanth inhibitors Cough ??? Citalopram ??? Lisinopril Outpatient Encounter Medications as of 03/12/2021 Medication Sig Dispense Refill ??? acetaminophen (TYLENOL) 500 mg tablet Take 1,000 mg by mouth as needed for pain ??? aspirin 81 mg enteric coated tablet Take 1 tablet (81 mg total) by mouth daily 30 tablet 11 ??? CALCIUM CARBONATE ORAL Take 600 mg by mouth 2 (two) times a day ??? carvediloL (COREG) 25 mg tablet TAKE 1 TABLET BY MOUTH TWICE A DAY WITH FOOD 180 tablet 3 ??? dilTIAZem CD 120 mg 24 hr capsule TAKE 1 CAPSULE BY MOUTH EVERY DAY 90 capsule 3 ??? Eliquis 5 mg tablet TAKE [...] DAY WITH MEALS 180 tablet 1 ??? potassium chloride ER (KLOR-CON) 20 mEq CR tablet Take 1 tablet (20 mEq total) by mouth 2 (two)times a day (Patient taking differently: Take 20 mEq by mouth daily ) 180 tablet 3 ??? rosuvastatin (CRESTOR) 20 mg tablet TAKE 1 TABLET BY MOUTH EVERY DAY 90 tablet 3 ??? spironolactone (ALDACTONE) 25 mg tablet Take 0.5 tablets (12.5 mg total) by mouth daily 15 tablet 11 ??? zolpidem (AMBIEN) 10 mg tablet Take 1 tablet (10 mg total) by mouth nightly as needed for sleepfor sleep 30 tablet 0 ??? [DISCONTINUED] ALPRAZolam (XANAX) 0.25 mg tablet TAKE 1 TABLET (0.25 MG TOTAL) BY MOUTH 3 (THREE) TIMES A DAY NEEDED FOR ANXIETY. 90 tablet 0 ??? [DISCONTINUED] FLUoxetine (PROzac) 20 mg capsule Take 1 capsule (20 mg total) by mouth daily 30capsule 1 ??? ALPRAZolam (XANAX) 0.5 mg tablet Take 1 tablet (0.5 mg total) by mouth 3 (three) times a day asneeded for anxiety 90 tablet 0 ??? FLUoxetine (PROzac) 40 mg capsule Take 1 capsule (40 mg total) by mouth daily 30 capsule 11 ??? nitrofurantoin monohydrate (MACROBID) 100 mg capsule Take 1 capsule (100 mg total) by mouth 2 (two) times a day for 7 days 14 capsule 0 No facility-administered encounter medications on file as of 03/12/2021. Review of Systems Constitutional: Negative for fatigue, fever and unexpected weight change. HENT: Negative for congestion. Respiratory: Negative for cough, chest tightness and shortness of breath. Cardiovascular: Negative for chest pain and palpitations. Gastrointestinal: Negative for abdominal pain, constipation, diarrhea, nausea and vomiting. Genitourinary: Positive for frequency, hematuria and urgency. Negative for decreased urine volume, difficulty urinating, dysuria and flank pain. Musculoskeletal: Negative for arthralgias and back pain. Skin: Negative for color change. Neurological: Negative for dizziness. Hematological: Does not bruise/bleed easily. Psychiatric/Behavioral: Positive for dysphoric mood. Negative for confusion. The patient is nervous/anxious. Vitals: 03/12/21 1104 BP: 118/78 Pulse: 61 Temp: 36.6 ??C (97.9 ??F) SpO2: 98% Weight: 73.1 kg (161 lb 3.2 oz) Height: 157.5 cm (5' 2 ) Physical Exam Vitals and nursing note reviewed. Constitutional: General: She is not in acute distress. Appearance: Normal appearance. She is not ill-appearing, toxic-appearing or diaphoretic. HENT: Head: Normocephalic and atraumatic. Eyes: Extraocular Movements: Extraocular movements intact. Cardiovascular: Rate and Rhythm: Normal rate and regular rhythm. Heart sounds: Normal heart sounds. No murmur heard. No friction rub. No gallop. Pulmonary: Effort: Pulmonary effort is normal. No respiratory distress. Breath sounds: Normal breath sounds. No stridor. No wheezing, rhonchi or rales. Chest: Chest wall: No tenderness. Abdominal: General: Bowel sounds are normal. There is no distension. Palpations: Abdomen is soft. There is no mass. Tenderness: There is no abdominal tenderness. There is no right CVA tenderness, left CVA tenderness, guarding or rebound. Hernia: No hernia is present. Musculoskeletal: General: Normal range of motion. Cervical back: Normal range of motion. Skin: General: Skin is warm and dry. Neurological: General: No focal deficit present. Mental Status: She is alert and oriented to person, place, and time. Psychiatric: Mood and Affect: Mood normal. Behavior: Behavior normal. Thought Content: Thought content normal. Assessment/Plan Diagnoses and all orders for this visit: Sleep disturbance (G47.9) (Primary) Assessment & Plan: Continue with prn ambien Anxiety (F41.9) Assessment & Plan: Will increase strength of xanax, encouraged using prn Episode of recurrent major depressive disorder, unspecified depression episode severity (HCC) (F33.9) Assessment & Plan: Increase prozac dosing Advised finding hobbies to help take her mind off of world events Acute cystitis with hematuria (N30.01) Assessment & Plan: We reviewed poc ua. Will culture urine, will notify her of results as available. Advised to f/u in next week if not improving, sooner if worsening. BMI 29.0-29.9,adult (Z68.29) Fatigue, unspecified type (R53.83) Assessment & Plan: Will evaluate further with labs and imaging, will notify her of results as they become available Orders: - CBC with auto differential; Future - Comprehensive metabolic panel; Future - Hemoglobin A1c; Future - TSH; Future - T4, free; Future - CT Abdomen Pelvis WO Contrast; Future - CT Chest WO Contrast; Future Weight loss (R63.4) Assessment & Plan: Will evaluate further with labs and imaging, will notify her of results as they become available Orders: - CBC with auto differential; Future - Comprehensive metabolic panel; Future - Hemoglobin A1c; Future - TSH; Future - T4, free; Future - Ambulatory referral to Diabetes and Nutrition; Future - CT Abdomen Pelvis WO Contrast; Future - CT Chest WO Contrast; Future Type 2 diabetes mellitus without complication, without long-term current use of insulin ([facility]/HCC) (HCC) (E11.9) Assessment & Plan: Continue medications same at this time Encouraged heart healthy diet Advised increasing frequency of eating Orders: - CBC with auto differential; Future - Comprehensive metabolic panel; Future - Hemoglobin A1c; Future - TSH; Future - T4, free; Future Hypothyroidism, unspecified type (E03.9) Assessment & Plan: Will evaluate further with labs Continue meds same at this time Orders: - TSH; Future - T4, free; Future Dysuria (R30.0) - POCT urinalysis dipstick - Urine culture Urine, clean voided; Future Other orders - FLUoxetine (PROzac) 40 mg capsule; Take 1 capsule (40 mg total) by mouth daily - ALPRAZolam (XANAX) 0.5 mg tablet; Take 1 tablet (0.5 mg total) by mouth 3 (three) times a day as needed for anxiety - nitrofurantoin monohydrate (MACROBID) 100 mg capsule; Take 1 capsule (100 mg total) by mouth 2 (two) times a day for 7 days Orders Placed This Encounter ??? Urine culture Urine, clean voided Standing Status: Future Number of Occurrences: 1 Standing Expiration Date: 03/12/2022 ??? CT Abdomen Pelvis WO Contrast Standing Status: Future Standing Expiration Date: 03/12/2022 Order Specific Question: Where should this order be performed? Answer: [facility] [[id number]] ??? CT Chest WO Contrast Standing Status: Future Standing Expiration Date: 03/12/2022 Order Specific Question: Where should this order be performed? Answer: [facility] [[id number]] ??? CBC with auto differential Standing Status: Future Number of Occurrences: 1 Standing Expiration Date: 03/12/2022 ??? Comprehensive metabolic panel Standing Status: Future Number of Occurrences: 1 Standing Expiration Date: 03/12/2022 ??? Hemoglobin A1c Standing Status: Future Number of Occurrences: 1 Standing Expiration Date: 03/12/2022 ??? TSH Standing Status: Future Number of Occurrences: 1 Standing Expiration Date: 03/12/2022 ??? T4, free Standing Status: Future Number of Occurrences: 1 Standing Expiration Date: 03/12/2022 ??? Ambulatory referral to Diabetes and Nutrition Standing Status: Future Standing Expiration Date: 03/12/2022 Referral Priority: Routine Referral Type: Consultation Referral Reason: Specialty Services Required Referral Location: [facility] Number of Visits Requested: 10 ??? POCT urinalysis dipstick ??? FLUoxetine (PROzac) 40 mg capsule Sig: Take 1 capsule (40 mg total) by mouth daily Dispense: 30 capsule Refill: 11 ??? ALPRAZolam (XANAX) 0.5 mg tablet Sig: Take 1 tablet (0.5 mg total) by mouth 3 (three) times a day as needed for anxiety Dispense: 90 tablet Refill: 0 ??? nitrofurantoin monohydrate (MACROBID) 100 mg capsule Sig: Take 1 capsule (100 mg total) by mouth 2 (two) times a day for 7 days Dispense: 14 capsule Refill: 0 RACHID Jenkins ING AUDITOR documented in this encounter Miscellaneous Notes * Assessment & Plan Note - Ryann Galdamez PA - 03/12/2021 7:24 PM BILLING AUDITOR Associated Problem(s): Acute cystitis with hematuria (Resolved 10/21/2021) We reviewed poc ua. Will culture urine, will notify her of results as available. Advised to f/u in next week if not improving, sooner if worsening. ING AUDITOR * Assessment & Plan Note - Ryann Galdamez PA - 03/12/2021 7:24 PM BILLING AUDITOR Associated Problem(s): Weight loss (Resolved 08/13/2022) Will evaluate further with labs and imaging, will notify her of results as they become available ING AUDITOR * Assessment & Plan Note - Ryann Galdamez PA - 03/12/2021 7:23 PM BILLING AUDITOR Associated Problem(s): Fatigue (Resolved 08/13/2022) Will evaluate further with labs and imaging, will notify her of results as they become available ING AUDITOR * Assessment & Plan Note - Ryann Galdamez PA - 03/12/2021 7:23 PM BILLING AUDITOR Associated Problem(s): AYAD on CPAP Continue with prn ambien ING AUDITOR * Assessment & Plan Note - Ryann Galdamez PA - 03/12/2021 7:23 PM BILLING AUDITOR Associated Problem(s): Moderate episode of recurrent major depressive disorder (HCC) Increase prozac dosing Advised finding hobbies to help take her mind off of world events ING AUDITOR * Assessment & Plan Note - Ryann Galdamez PA - 03/12/2021 7:22 PM BILLING AUDITOR Associated Problem(s): Anxiety (Resolved 03/03/2023) Will increase strength of xanax, encouraged using prn ING AUDITOR * Assessment & Plan Note - Ryann Galdamez PA - 03/12/2021 7:22 PM BILLING AUDITOR Associated Problem(s): Type 2 diabetes mellitus without complications (CMS/HCC) (HCC) Continue medications same at this time Encouraged heart healthy diet Advised increasing frequency of eating ING AUDITOR * Assessment & Plan Note - Ryann Galdamez PA - 03/12/2021 7:22 PM BILLING AUDITOR Associated Problem(s): Acquired hypothyroidism Will evaluate further with labs Continue meds same at this time ING AUDITOR documented in this encounter Plan of Treatment Not on file documented as of this encounter Procedures Procedure Name Priority Date/Time Associated Diagnosis Comments URINE CULTURE Routine 03/12/2021 1:10 PM BILLING AUDITOR Dysuria POCT URINALYSIS DIPSTICK Routine 03/12/2021 1:08 PM BILLING AUDITOR Dysuria COPY RECEIVED FROM Routine 03/12/2021 12 :00 AM BILLING AUDITOR COPY(IES) SENT TO: Routine 03/12/2021 12 :00 AM BILLING AUDITOR CBC WITH AUTO DIFFERENTIAL Routine 03/12/2021 12:00 AM BILLING AUDITOR Fatigue, unspecified type Weight loss Type 2 diabetes mellitus without complication, without long-term current use of insulin (CMS/HCC) ([facility]) TSH Routine 03/12/2021 12:00 AM BILLING AUDITOR Fatigue, unspecified type Weight loss Type 2 diabetes mellitus without complication, without long-term current use of insulin (CMS/HCC) (HCC) Hypothyroidism, unspecified type T4, FREE Routine 03/12/2021 12:00 AM BILLING AUDITOR Fatigue, unspecified type Weight loss Type 2 diabetes mellitus without complication, without long-term current use of insulin (CMS/HCC) (HCC) Hypothyroidism, unspecified type HEMOGLOBIN A1C Routine 03/12/2021 12:00 AM BILLING AUDITOR Fatigue, unspecified type Weight loss Type 2 diabetes mellitus without complication, without long-term current use of insulin (CMS/HCC) ([facility]) COMPREHENSIVE METABOLIC PANEL Routine 03/12/2021 12:00 AM BILLING AUDITOR Fatigue, unspecified type Weight loss Type 2 diabetes mellitus without complication, without long-term current use of insulin (CMS/HCC) (HCC) documented in this encounter Results * (ABNORMAL) Urine culture Urine, clean voided (03/12/2021 1:10 PM BILLING AUDITOR) Urine culture (A) [facility] Comment: ??CULTURE, URINE, ROUTINE ?Micro Number: ?[id number] ??Test Status: ? Final ??Specimen Source: ?? Urine ??Specimen Quality: ??Adequate ??Result: ?Greater than 100,000 CFU/mL of Klebsiella oxytoca ?K.oxytoca ?INT ?? ATIF ?? AMOX/CLAVULANATE ? R ? >=32 ?? AMPICILLIN ? R ? >=32 ?? AMP/SULBACTAM ?R ? >=32 ?? CEFAZOLIN ?R ? >=64 1 ?? CEFEPIME ? S ? <=1 ?? CEFTRIAXONE ?R ? 8 ?? CIPROFLOXACIN ?S ? <=0.25 ?? ERTAPENEM ?S ? <=0.5 ?? GENTAMICIN ? S ? <=1 ?? IMIPENEM ? S ? <=0.25 ?? LEVOFLOXACIN ? S ? <=0.12 ?? NITROFURANTOIN ? S ? <=16 ?? PIP/TAZOBACTAM ? R ? >=128 ?? TOBRAMYCIN ? S ? <=1 ?? TRIMETHOPRIM/SULFA ? S ? <=20 S=Susceptible ??I=Intermediate ??R=Resistant ??* = Not Tested NR = Not Reported ??NN = See Therapy Comments THERAPY COMMENTS ?Note 1: ?For uncomplicated UTI caused by E. coli, ?K. pneumoniae or P. mirabilis: Cefazolin is ?susceptible if ATIF <32 mcg/mL and predicts ?susceptible to the oral agents cefaclor, cefdinir, ?cefpodoxime, cefprozil, cefuroxime, cephalexin ?and loracarbef. Urine, clean voided 03/12/2021 1:10 PM BILLING AUDITOR 03/13/2021 3:19 AM BILLING AUDITOR Ryann RASHID LAB MICROBIOLOGY - GENERAL ORDERABLES Final Result Performing Organization Address [facility]/State/[facility] [employer] de Phone Number [facility] [address] [place] [address] * (ABNORMAL) POCT urinalysis dipstick (03/12/2021 1:08 PM BILLING AUDITOR) Color, Urine, POC Light Yellow Clarity, ur, POC Clear Clear Glucose, ur, POC Negative Negative mg/dL Bilirubin, ur, POC Negative Negative, Small, Moderate, Large Ketones, ur, POC Negative Negative Specific [place], POC 1.010 1.005 - 1.030 Blood, ur, POC Moderate(A) Negative pH, ur, POC 5.5 5.0 - 8.0 Protein, ur, POC Negative Negative Urobilinogen, urine, POC 0.2 0.2 - 1.0 mg/dL Nitrite, ur, POC Negative Negative Leukocytes, ur, POC Trace(A) Negative Lot Number [id number] Urine 03/12/2021 1:08 PM BILLING AUDITOR Ryann RASHID POINT OF CARE TEST ORDERAB LES Final Result * Copy received from (03/12/2021 12:00 AM BILLING AUDITOR) Copy Rec'd from: [facility] Comment: ?[facility] ?PRACTICE ?[address] ?[place] [address] 03/12/2021 03/12/2021 1:3 1 PM BILLING AUDITOR Ryann RASHID LAB BLOOD ORDERABLES Final Result Performing Organization Address City/[facility] de Phone Number [facility] * COPY(IES) SENT TO: (03/12/2021 12:00 AM BILLING AUDITOR) COPY(IES) SENT TO: [facility] Comment: ?[facility] [address] ?[address] ?[place] [address] 03/12/2021 03/12/2021 1:3 1 PM BILLING AUDITOR Ryann RASHID LAB BLOOD ORDERABLES Final Result Performing Organization Address [facility] de Phone Number [facility] * T4, free (03/12/2021 12:00 AM BILLING AUDITOR) Free T4 1.5 0.8 - 1.8 ng/dL [facility] Blood specimen (specimen) 03/12/2021 03/12/2021 1:31 PM BILLING AUDITOR Ryann RASHID LAB BLOOD ORDERABLES Final Result Performing Organization Address [facility] de Phone Number Room 8 [facility] [address] [place] [address] * TSH (03/12/2021 12:00 AM BILLING AUDITOR) Pathologist [facility] TSH 1.34 0.40 - 4.50 mIU/L [facility] Blood specimen (specimen) 03/12/2021 03/12/2021 1:31 PM BILLING AUDITOR Ryann RASHID LAB BLOOD ORDERABLES Final Result Performing Organization Address [facility] Phone Number [facility] [address] [place] [address] * (ABNORMAL) Hemoglobin A1c (03/12/2021 12:00 AM BILLING AUDITOR) Pathologist [facility] Hgb A1C 6.1(H) <5.7 % of total Hgb [facility] Comment: ? Your request to have a duplicate copy faxed has been acknowledged. ?Queued to: ??[id number] Blood specimen (specimen) 03/12/2021 03/12/2021 1:31 PM BILLING AUDITOR Ryann RASHID LAB BLOOD ORDERABLES Final Result Performing Organization Address [facility] de Phone Number [facility] [address] [place] [address] * (ABNORMAL) Comprehensive metabolic panel (03/12/2021 12:00 AM BILLING AUDITOR) Glucose 188(H) 65 - 99 mg/dL [facility] Comment: ? Fasting reference interval For someone without known diabetes, a glucose value >125 mg/dL indicates that they may have diabetes and this should be confirmed with a follow-up test. BUN 20 7 - 25 mg/dL [facility] Creatinine 0.72 0.60 - 0.88 mg/dL [facility] Comment: For patients >49 years of age, the reference limit for Creatinine is approximately 13% higher for people identified as -Montserratian. eGFR NON-AFR. [place] 79 > OR = 60 mL/min/1 .73m2 [facility] EGFR 92 > OR = 60 mL/min/1 .73m2 [facility] BUN/creat ratio NOT APPLICABLE 6 - 22 (calc) [facility] Sodium 138 135 - 146 mmol/L [facility] Potassium, pl 4.2 3.5 - 5.3 mmol/L [facility] Chloride 100 98 - 110 mmol/L [facility] CO2 27 20 - 32 mmol/L [facility] Calcium 10.0 8.6 - 10.4 mg/dL [facility] Protein, sr 7.0 6.1 - 8.1 g/dL [facility] Albumin 4.3 3.6 - 5.1 g/dL [facility] GLOBULIN 2.7 1.9 - 3.7 g/dL (calc) [facility] Alb/glob ratio 1.6 1.0 - 2.5 (calc) [facility] Bilirubin, total 0.6 0.2 - 1.2 mg/dL [facility] Alk phos 76 37 - 153 U/L [facility] AST 15 10 - 35 U/L [facility] ALT (SGPT) 12 6 - 29 U/L [facility] Blood specimen (specimen) 03/12/2021 03/12/2021 1:31 PM BILLING AUDITOR Ryann RASHID LAB BLOOD ORDERABLES Final Result [facility] [address], [place] [address] * (ABNORMAL) CBC with auto differential (03/12/2021 12:00 AM BILLING AUDITOR) WBC 8.8 3.8 - 10.8 Thousand/u L [facility] RBC, POC 4.17 3.80 - 5.10 Million/uL [facility] Hgb 11.4(L) 11.7 - 15.5 g/dL [facility] Hct 36.0 35.0 - 45.0 % [facility] MCV 86.3 80.0 - 100.0 fL [facility] MCH 27.3 27.0 - 33.0 pg [facility] MCHC 31.7(L) 32.0 - 36.0 g/dL [facility] Rdw 13.9 11.0 - 15.0 % [facility] Platelets 333 140 - 400 Thousand/u L [facility] MPV 10.6 7.5 - 12.5 fL [facility] Neutrophils, abs 5,887 1,500 - 7,800 cells/uL [facility] Lymphocytes, abs 2,182 850 - 3,900 cells/uL [facility] Monocyte abs 590 200 - 950 cells/uL [facility] Eosinophils, abs 97 15 - 500 cells/uL [facility] Basophils, abs 44 0 - 200 cells/uL [facility] Neutrophils 66.9 % [facility] Lymphocyte pct 24.8 % [facility] Monocytes 6.7 % [facility] Eosinophils 1.1 % [facility] Basophils 0.5 % [facility] Blood specimen (specimen) 03/12/2021 03/12/2021 1:31 PM BILLING AUDITOR Ryann RASHID LAB BLOOD ORDERABLES Final Result [facility] [address] [phone] documented in this encounter Visit Diagnoses Diagnosis Sleep disturbance- Primary Unspecified sleep disturbance Anxiety Anxiety state, unspecified Episode of recurrent major depressive disorder, unspecified depression episode severity (HCC) Acute cystitis with hematuria BMI 29.0-29.9,adult Fatigue, unspecified type Weight loss Loss of weight Type 2 diabetes mellitus without complication, without long-term current use of insulin ([facility]/HCC) (HCC) Hypothyroidism, unspecified type Dysuria documented in this encounter Discontinued Medications Medication Sig Discontinue Reason Start Date End Da te FLUoxetine (PROzac) 20 mg capsule Take 1 capsule (20 mg total) by mouth daily 02/25/2021 03/12/2021 ALPRAZolam (XANAX) 0.25 mg tablet TAKE 1 TABLET (0.25 MG TOTAL) BY MOUTH 3 (THREE) TIMES A DAY NEEDED FOR ANXIETY. 02/13/2021 03/12/2021 documented as of this encounter Care Teams Senior Clinical Data Analyst Relationship Specialty Start Date End Date Ryann Galdamez PA PCP - General Heavy Cleaner 07/16/20 04/01/21 documented as of this encounter
--- OUTSIDE RECORDS SUMMARY | 2024-03-13 01:12 | XMS_ITS | Encounter Summary ---
Author Organization [facility] Address [address] [place] [address] Care Team Providers Care Box Sealing Machine Catcher Name Role Phone Ryann Galdamez Primary Care Provider +1- [phone] Encounter Details Date Type Department Care Team (Late st Contact Info) Description 03/27/2021 Orders Only [facility] Family Medicine [address] [place] [address] Ryann Galdamez PA [address] [place] [address] Social History Tobacco Use Types [...] on file Legal Sex Female 4:20 AM LEGAL ADVISOR Gender Identity Not on file Sexual Orientation Not on file documented as of this encounter Plan of Treatment Not on file documented as of this encounter Visit Diagnoses Not on filedocumented in this encounter Care Teams Box Sealing Machine Catcher Relationship Specialty Start Date End Date Ryann Galdamez PA PCP - General Time Study Analyst 07/16/20 04/01/21 documented as of this encounter
--- OUTSIDE RECORDS SUMMARY | 2024-03-13 01:12 | XMS_ITS | Encounter Summary ---
Author Organization [facility] Address [address] [place] [address] Care Team Providers Care Patented Hogshead Assembler Name Role Phone Ryann Galdamez Primary Care Provider +1- [phone] Encounter Details Date Type Department Care Team (Late st Contact Info) Description 03/22/2021 Telephone [facility] Family Medicine [address] [place] [address] Ryann Galdamez PA [facility] [place] [address] Social History Tobacco Use Types [...] on file Legal Sex Female 4:20 AM PHOTOGRAPHIC LITHOGRAPHER Gender Identity Not on file Sexual Orientation Not on file documented as of this encounter Miscellaneous Notes * Telephone Encounter - Ryann Galdamez PA - 03/22/2021 5:19 PM PHOTOGRAPHIC LITHOGRAPHER I called jyoti and received a copy of labs, will scan into chart. I called patient and reviewed them with her personally. She notes that she has been up and around today, not having any dizziness.Encouraged a handful of salty snack daily due to mild decrease in sodium, advised reporting to the ER if symptoms continue/worsen. She notes that the libia hematuria stopped this morning after she contacted the office. We discussed if that returns and continues that she should seek care emergently.We will attempt to contact urology again on Thursday for a sooner appt. OGRAPHIC LITHOGRAPHER documented in this encounter Plan of Treatment Not on file documented as of this encounter Visit Diagnoses Not on filedocumented in this encounter Care Teams Patented Hogshead Assembler Relationship Specialty Start Date End Date Ryann Galdamez PA PCP - General Lining Maker Hand 07/16/20 04/01/21 documented as of this encounter
--- OUTSIDE RECORDS SUMMARY | 2024-03-13 01:12 | XMS_ITS | Encounter Summary ---
Author Organization [facility] Address [address] [place] [address] Care Team Providers Care Marketing And Promotions Manager Name Role Phone Ryann Galdamez Primary Care Provider +1- [phone] Reason for Visit * Reason Onset Date Comments CT Prior Auth 03/27/2021 Encounter Details Date Type Department Care Team (Late st Contact Info) Description 03/27/2021 Telephone [facility] Family Medicine [address] [place] [address] Ryann Galdamez PA [facility] [place] [address] CT Prior Auth Social History Tobacco Use Types Packs/Day Years [...] on file Legal Sex Female 4:20 AM BROOM MAN Gender Identity Not on file Sexual Orientation Not on file documented as of this encounter Miscellaneous Notes * Telephone Encounter - Raiza Desir MA - 03/28/2021 2:59 PM CST This procedure was cancelled because she is scheduled to get a CT Ab/ Pelvis at the urology office. M MAN * Telephone Encounter - Karoline Cooper LPN - 03/27/2021 11:25 AM BROOM MAN Patient has CT on 04/03/2021 -- patient scheduled herself. Precert with [facility] called needing authorization. Advised we will work on this, but no guarantee of approval and patient may have to cancel/rescheudle. They agreed. M MAN documented in this encounter Plan of Treatment Not on file documented as of this encounter Visit Diagnoses Not on filedocumented in this encounter Care Teams Marketing And Promotions Manager Relationship Specialty Start Date End Date Ryann Galdamez PA PCP - General Trimmer And Borer Machine Operator 07/16/20 04/01/21 documented as of this encounter
--- OUTSIDE RECORDS SUMMARY | 2024-03-13 01:12 | XMS_ITS | Encounter Summary ---
Author Organization [facility] Address [address] [place] [address] Care Team Providers Care Machine Cutter Name Role Phone Ryann Galdamez Primary Care Provider +1- [phone] Encounter Details Date Type Department Care Team (Late st Contact Info) Description 04/22/2021 Telephone [facility] Family Medicine [address] [place] [address] Ryann Galdamez PA [facility] [place] [address] Social History Tobacco Use Types [...] on file Legal Sex Female 4:20 AM SEISMIC PROSPECTING SUPERVISOR Gender Identity Not on file Sexual Orientation Not on file documented as of this encounter Miscellaneous Notes * Telephone Encounter - Ryann Galdamez PA - 04/22/2021 11:04 AM SEISMIC PROSPECTING SUPERVISOR Thanks - she must have lost you in the call. When she returned the call, I spoke with her about increasing her medication. I have already transmitted the medication for her. MIC PROSPECTING SUPERVISOR * Telephone Encounter - Nohemi Calvo - 04/22/2021 10:19 AM CST Prema would like to talk to you regarding her meds and possibly making a change. She is not able to come in for a visit in the near future. MIC PROSPECTING SUPERVISOR documented in this encounter Plan of Treatment Not on file documented as of this encounter Visit Diagnoses Not on filedocumented in this encounter Care Teams Machine Cutter Relationship Specialty Start Date End Date Ryann Galdamez PA PCP - General Business System Manager 04/02/21 01/22/22 documented as of this encounter
--- OUTSIDE RECORDS SUMMARY | 2024-03-13 01:12 | XMS_ITS | Encounter Summary ---
Author Organization [facility] Address [address] [place] [address] Care Team Providers Care Solar Energy Sales Specialist Name Role Phone Ryann Galdamez Primary Care Provider +1- [phone] Reason for Visit * Reason Onset Date Comments Med Refill 04/29/2021 Encounter Details Date Type Department Care Team (Late st Contact Info) Description 04/29/2021 Telephone [facility] Family Medicine [address] [place] [address] Ryann Galdamez PA [facility] [place] [address] Med Refill Social History Tobacco Use Types Packs/Day Years [...] on file Legal Sex Female 4:20 AM ARCHERY INSTRUCTOR Gender Identity Not on file Sexual Orientation Not on file documented as of this encounter Ordered Prescriptions Prescription Sig Dispense Quantity Refills Last Filled Start Date End Date zolpidem (AMBIEN) 10 mg tabletIndications: Sleep disturbance Take 1 tablet (10 mg total) by mouth nightly as needed for sleep for sleep 90 tablet 04/29/2021 documented in this encounter Miscellaneous Notes * Telephone Encounter - Ryann Galdamez PA - 04/29/2021 2:08 PM ARCHERY INSTRUCTOR Last filled 04/02/21 for #30. Will transmit to [facility]. ERY INSTRUCTOR * Telephone Encounter - Nakita Mustafa - 04/29/2021 1:52 PM CST zolpidem (AMBIEN) 10 mg tablet patient would like a 90 days supply if that's ok ERY INSTRUCTOR documented in this encounter Plan of Treatment Not on file documented as of this encounter Visit Diagnoses Diagnosis Sleep disturbance Unspecified sleep disturbance documented in this encounter Discontinued Medications Medication Sig Discontinue Reason Start Date End Da te zolpidem (AMBIEN) 10 mg tabletIndications:Sleep disturbance Take 1 tablet (10 mg total) by mouth nightly as needed for sleep for sleep Reorder 04/02/2021 04/29/2021 documented as of this encounter Care Teams Solar Energy Sales Specialist Relationship Specialty Start Date End Date Ryann Galdamez PA PCP - General Inseminator 04/02/21 01/22/22 documented as of this encounter
--- OUTSIDE RECORDS SUMMARY | 2024-03-13 01:12 | XMS_ITS | Encounter Summary ---
Author Organization [facility] Address [address] [place] [address] Phone Care Team Providers Care Stockroom Coordinator Name Role Phone Ryann Galdamez Primary Care Provider +1- [phone] Encounter Details Date Type Department Care Team (Late st Contact Info) Description 05/27/2021 Orders Only [facility] Orthopaedic Surgery [address] [place] [address] [place] [address] Moses Vora MD [address] [place] [address] Closed fracture of left ankle, initial encounter (Primary Dx); Fall, initial encounter Social History Tobacco Use Types Packs/Day [...] file Legal Sex Female 4:20 AM HEEL BOOM OPERATOR Gender Identity Not on file Sexual Orientation Not on file documented as of this encounter Plan of Treatment Not on file documented as of this encounter Visit Diagnoses Diagnosis Closed fracture of left ankle, initial encounter- Primary Fall, initial encounter documented in this encounter Care Teams Stockroom Coordinator Relationship Specialty Start Date End Date Ryann Galdamez PA PCP - General Key Worker 04/02/21 01/22/22 documented as of this encounter
--- OUTSIDE RECORDS SUMMARY | 2024-03-13 01:12 | XMS_ITS | Encounter Summary ---
Author Organization [facility] Address [address] [place] [address] Care Team Providers Care Parent Aide Name Role Phone Ryann Galdamez Primary Care Provider +1- [phone] Reason for Visit * Reason Onset Date Comments Discuss upcoming surgery ?s 05/13/2021 Encounter Details Date Type Department Care Team (Late st Contact Info) Description 05/13/2021 Telephone [facility] Family Medicine [address] [place] [address] Ryann Galdamez PA [address] [facility] [place] [address] Discuss upcoming surgery ?s Social History Tobacco Use Types Packs/Day Years [...] file Legal Sex Female 4:20 AM POWER WHEELCHAIR MECHANIC Gender Identity Not on file Sexual Orientation Not on file documented as of this encounter Miscellaneous Notes * Telephone Encounter - Ryann Galdamez PA - 05/15/2021 9:17 AM POWER WHEELCHAIR MECHANIC I spoke to patient, expressed my condolences for the loss of her son. She notes that she is doing ok, has been using her xanax bid/prn and will let us know if needing refilled. She states that the celebration of life will be in several weeks. She is planning on a lithotripsy on 05/21/21 at [facility] with urology - she has had a conversation with her cardiology office and will be stopping the eliquis 2d prior to the procedure. She notes she isanxious about the procedure but happy to proceed to have answers. She will let us know if we can be of further assistance. R WHEELCHAIR MECHANIC * Telephone Encounter - Ryann Galdamez PA - 05/13/2021 2:42 PM POWER WHEELCHAIR MECHANIC I called patient and left message on machine for call back. R WHEELCHAIR MECHANIC * Telephone Encounter - Nohemi Calvo - 05/13/2021 9:51 AM CST Prema would like to talk to you regarding her upcoming kidney stone surgery on 05/21/21. She has a couple of questions and would like you to call her. R WHEELCHAIR MECHANIC documented in this encounter Plan of Treatment Not on file documented as of this encounter Visit Diagnoses Not on filedocumented in this encounter Care Teams Parent Aide Relationship Specialty Start Date End Date Ryann Galdamez PA PCP - General Data Visualization Developer 04/02/21 01/22/22 documented as of this encounter
--- OUTSIDE RECORDS SUMMARY | 2024-03-13 01:12 | XMS_ITS | Encounter Summary ---
Author Organization [facility] Address [address] [place] [address] Care Team Providers Care Turpentine Distiller Name Role Phone Ryann Galdamez Primary Care Provider +1- [phone] Reason for Referral * Diagnostic Imaging (Urgent) - Closed Specialty Diagnoses / Procedures Referred By Indra muñoz Referred To Contact Diagnoses Acute cystitis with hematuria Acute left flank pain History of nephrolithiasis Procedures CT Abdomen Pelvis W WO Contrast Ryann Galdamez PA Phone: tel: fax: [address] [address] Phone: tel: Referral ID Status Reason Start Date Expiration Date Visits Re quested Visits Authorized [id number] Closed 03/21/2021 04/20/2022 1 1 PUNCHER Reason for Visit * Reason Comments Blood in Urine on and off 2 weeks Encounter Details Date Type Department Care Team (Late st Contact Info) Description 03/21/2021 10:45 AM RACK PUNCHER Office Visit [facility] Family Medicine [address] [place] [id number] Ryann Galdamez PA [address] [place] [address] Acute cystitis with hematuria (Primary Dx); Acute left flank pain; History of nephrolithiasis Social History Tobacco Use Types Packs/Day Years [...] on file Legal Sex Female 4:20 AM RACK PUNCHER Gender Identity Not on file Sexual Orientation Not on file documented as of this encounter Last Filed Vital Signs Vital Sign Reading Time Taken Comments Blood Pressure 110/60 03/21/2021 10:41 AM RACK PUNCHER Pulse 104 03/21/2021 10:41 AM RACK PUNCHER Temperature 36.7 ??C (98 ??F) 03/21/2021 10:41 AM RACK PUNCHER Respiratory Rate 9 03/21/2021 10:41 AM RACK PUNCHER Oxygen Saturation 97% 03/21/2021 10:41 AM RACK PUNCHER Inhaled Oxygen Concentration - - Weight 72 kg (158 lb 12.8 oz) 03/21/2021 10:41 A M RACK PUNCHER Height 157.5 cm (5' 2 ) 03/21/2021 10:41 AM RACK PUNCHER Body Mass Index 29.04 03/21/2021 10:41 AM RACK PUNCHER documented in this encounter Progress Notes * Ryann Galdamez PA - 03/21/2021 10:45 AM CST Images from the original note were not included. Chief Complaint Blood in Urine (on and off 2 weeks ) HPI Here for libia hematuria, off and on x 2w. Feeling chilled but no fevers. Reports that she likes to eat ice, thinks that the chilled sensationis frequent. Has achy back pain off and on, doesn't pay attention to it because it's chronic. No change in back pain. Feeling nauseated, no vomiting. She notes the blood was bright red this morning and did fill the toilet slightly. She does note a history of a left kidney stone. Is currently taking Bactrim for this condition. Allergies as of 03/21/2021 - Reviewed 03/21/2021 Allergen Reaction Noted ??? Amlodipine Shortness of breath 07/21/2019 ??? Prasanth inhibitors Cough ??? Citalopram ??? Lisinopril Outpatient Encounter Medications as of 03/21/2021 Medication Sig Dispense Refill ??? acetaminophen (TYLENOL) [...] DAY 180 tablet 3 ??? FLUoxetine (PROzac) 20 mg capsule Take 20 mg by mouth daily ??? furosemide (LASIX) [...] by mouth daily 15 tablet 11 ??? sulfamethoxazole-trimethoprim (BACTRIM DS) 800-160 mg per tablet Take 1 tablet by mouth 2 (two)times a day for 7 days 14 tablet 0 ??? zolpidem (AMBIEN) 10 mg tablet Take 1 tablet (10 mg total) by mouth nightly as needed for sleepfor sleep 30 tablet 0 ??? [DISCONTINUED] potassium chloride ER (KLOR-CON) 20 mEq CR tablet Take 1 tablet (20 mEq total) by mouth 2 (two) times a day (Patient not taking: Reported on 03/21/2021) 180 tablet 3 No facility-administered encounter medications on file as of 03/21/2021. Review of Systems Constitutional: Negative for chills, fatigue, fever and unexpected weight change. HENT: Negative for congestion. Respiratory: Negative for cough, chest tightness and shortness of breath. Cardiovascular: Negative for chest pain and palpitations. Gastrointestinal: Negative for abdominal pain. Genitourinary: Positive for hematuria. Negative for difficulty urinating and dysuria. Musculoskeletal: Positive for back pain. Negative for arthralgias. Skin: Negative for color change. Neurological: Negative for dizziness. Hematological: Does not bruise/bleed easily. Psychiatric/Behavioral: Negative for confusion. The patient is not nervous/anxious. Vitals: 03/21/21 1041 BP: 110/60 Pulse: 104 Resp: 9 Temp: 36.7 ??C (98 ??F) SpO2: 97% Weight: 72 kg (158 lb 12.8 oz) Height: 157.5 cm (5' 2 ) Physical Exam Vitals and nursing note reviewed. Constitutional: General: She is not in acute distress. Appearance: Normal appearance. She is not toxic-appearing. HENT: Head: Normocephalic and atraumatic. Eyes: Extraocular Movements: Extraocular movements intact. Cardiovascular: Rate and Rhythm: Normal rate and regular rhythm. Heart sounds: Normal heart sounds. No murmur heard. No friction rub. No gallop. Pulmonary: Effort: Pulmonary effort is normal. No respiratory distress. Breath sounds: Normal breath sounds. No stridor. No wheezing, rhonchi or rales. Chest: Chest wall: No tenderness. Abdominal: General: There is no distension. Palpations: Abdomen is soft. There is no mass. Tenderness: There is no abdominal tenderness. There is left CVA tenderness. There is no right CVA tenderness, guarding or rebound. Hernia: No hernia is present. Comments: Mild tenderness upon palpation of left flank Musculoskeletal: General: Normal range of motion. Cervical back: Normal range of motion. Skin: General: Skin is warm and dry. Neurological: Mental Status: She is alert and oriented to person, place, and time. Psychiatric: Mood and Affect: Mood normal. Behavior: Behavior normal. Thought Content: Thought content normal. Assessment/Plan Diagnoses and all orders for this visit: Acute cystitis with hematuria (N30.01) (Primary) Assessment & Plan: Will arrange for stat CT abdomen pelvis without contrast in stat labs today. Will notify patient ofthe results as they become available. She was advised to report to the ER in the interim if symptoms are worsening. Orders: - CT Abdomen Pelvis WO Contrast; Future - CBC with auto differential; Future - Comprehensive metabolic panel; Future - Urinalysis reflex to microscopic; Future - CT Abdomen Pelvis W WO Contrast; Future Acute left flank pain (R10.9) Assessment & Plan: Will arrange for stat CT abdomen pelvis without contrast in stat labs today. Will notify patient ofthe results as they become available. She was advised to report to the ER in the interim if symptoms are worsening. Orders: - CT Abdomen Pelvis WO Contrast; Future - CBC with auto differential; Future - Comprehensive metabolic panel; Future - Urinalysis reflex to microscopic; Future - CT Abdomen Pelvis W WO Contrast; Future History of nephrolithiasis (Z87.442) Assessment & Plan: Will arrange for stat CT abdomen pelvis without contrast in stat labs today. Will notify patient ofthe results as they become available. She was advised to report to the ER in the interim if symptoms are worsening. Orders: - CT Abdomen Pelvis WO Contrast; Future - CBC with auto differential; Future - Comprehensive metabolic panel; Future - Urinalysis reflex to microscopic; Future - CT Abdomen Pelvis W WO Contrast; Future Orders Placed This Encounter ??? CT Abdomen Pelvis WO Contrast Standing Status: Future Standing Expiration Date: 03/21/2022 Scheduling Instructions: requests Vishnu Order Specific Question: Where should this order be performed? Answer: External Order [171] ??? CT Abdomen Pelvis W WO Contrast STAT Hold and Call [phone] Standing Status: Future Standing Expiration Date: 03/21/2022 Order Specific Question: Where should this order be performed? Answer: External Order [171] Order Specific Question: Perform with Oral Contrast? Answer: No ??? CBC with auto differential Standing Status: Future Number of Occurrences: 1 Standing Expiration Date: 03/21/2022 ??? Comprehensive metabolic panel Standing Status: Future Number of Occurrences: 1 Standing Expiration Date: 03/21/2022 ??? Urinalysis reflex to microscopic Standing Status: Future Number of Occurrences: 1 Standing Expiration Date: 03/21/2022 Order Specific Question: Urine Collection Method Answer: Clean Catch RACHID Jenkins PUNCHER documented in this encounter Miscellaneous Notes * Assessment & Plan Note - Ryann Galdamez PA - 03/21/2021 12:52 PM RACK PUNCHER Associated Problem(s): History of nephrolithiasis Will arrange for stat CT abdomen pelvis without contrast in stat labs today. Will notify patient ofthe results as they become available. She was advised to report to the ER in the interim if symptoms are worsening. PUNCHER * Assessment & Plan Note - Ryann Galdamez PA - 03/21/2021 12:52 PM RACK PUNCHER Associated Problem(s): Acute left flank pain (Resolved 10/21/2021) Will arrange for stat CT abdomen pelvis without contrast in stat labs today. Will notify patient ofthe results as they become available. She was advised to report to the ER in the interim if symptoms are worsening. PUNCHER * Assessment & Plan Note - Ryann Galdamez PA - 03/21/2021 12:51 PM RACK PUNCHER Associated Problem(s): Acute cystitis with hematuria (Resolved 10/21/2021) Will arrange for stat CT abdomen pelvis without contrast in stat labs today. Will notify patient ofthe results as they become available. She was advised to report to the ER in the interim if symptoms are worsening. PUNCHER documented in this encounter Plan of Treatment Not on file documented as of this encounter Procedures Procedure Name Priority Date/Time Associated Diagnosis Comments URINALYSIS AND REFLEX TO MICROSCOPIC STAT 03/21/2021 Acute cystitis with hematuria Acute left flank pain History of nephrolithiasis CBC WITH AUTO DIFFERENTIAL STAT 03/21/2021 Acute cystitis with hematuria Acute left flank pain History of nephrolithiasis COMPREHENSIVE METABOLIC PANEL STAT 03/21/2021 Acute cystitis with hematuria Acute left flank pain History of nephrolithiasis documented in this encounter Results * (ABNORMAL) Urinalysis reflex to microscopic (03/21/2021) Urine 03/21/2021 Ryann RASIHD LAB URINE ORDERABLES Final Result EXTERNAL LAB * (ABNORMAL) Comprehensive metabolic panel (03/21/2021) SCRIBED Sodium 132(A) 137 - 145 mmol/L EXTERNAL LAB SCRIBED Potassium 4.4 3.4 - 5 mmol/L EXTERNAL LAB SCRIBED Chloride 98 98 - 107 mmol/L EXTERNAL LAB SCRIBED Carbon Dioxide 22 22 - 30 mmol/L EXTERNAL LAB SCRIBED Anion Gap 12 8 - 16 mmol/L EXTERNAL LAB SCRIBED Urea Nitrogen (BUN) 17 7 - 17 mg/dl EXTERNAL LAB SCRIBED Creatinine 1 0.7 - 1 mg/dl EXTERNAL LAB SCRIBED Glucose 178(A) 65 - 110 mg/dl EXTERNAL LAB SCRIBED Calcium 9.8 8.4 - 10.2 mg/dl EXTERNAL LAB SCRIBED Bilirubin 0.5 0.2 - 1.3 mg/dl EXTERNAL LAB SCRIBED Albumin 4.3 3.5 - 5.1 g/dl EXTERNAL LAB SCRIBED Alkaline Phosphatase 92 38 - 126 Units/L EXTERNAL LAB SCRIBED Alanine Transaminase (ALT) 16 4 - 35 Units/L EXTERNAL LAB SCRIBED Aspartate Transaminase (AST) 22 14 - 36 Units/L EXTERNAL LAB SCRIBED eGFR in NonAfrican Russian 53(A) 60 - 100 EXTERNAL LAB Blood specimen (specimen) 03/21/2021 Ryann RASHID LAB BLOOD ORDERABLES Final Result EXTERNAL LAB * (ABNORMAL) CBC with auto differential (03/21/2021) SCRIBED WBC 4.3(A) 4.5 - 10 k/cumm EXTERNAL LAB SCRIBED RBC 4.25 4.2 - 5.4 m/cumm EXTERNAL LAB SCRIBED Hemoglobin 11.7(A) 12 - 15 g/dL EXTERNAL LAB SCRIBED Hematocrit 36.7(A) 37 - 47 % EXTERNAL LAB SCRIBED MCH 27.5 26 - 34 pg EXTERNAL LAB SCRIBED MCHC 31.9(A) 32 - 36 g/dL EXTERNAL LAB SCRIBED RDW 15.9(A) 11.5 - 14.5 g/dl EXTERNAL LAB SCRIBED Platelets 272 150 - 375 k/cumm EXTERNAL LAB SCRIBED MPV 10.1 7.4 - 10.4 fL EXTERNAL LAB SCRIBED NRBC 0 0 - 0.2 /100 WBC EXTERNAL LAB SCRIBED Lymphocytes 11(A) 18.3 - 44.2 % EXTERNAL LAB SCRIBED Monocytes 6.8 2.6 - 8.5 % EXTERNAL LAB SCRIBED Neutrophils 81.3(A) 45.5 - 73.1 % EXTERNAL LAB SCRIBED Imm Granulocytes 0.2 0 - 0.5 % EXTERNAL LAB SCRIBED Eosinophils 0.2 0 - 4.4 % EXTERNAL LAB SCRIBED Basophils 0.5 0.2 - 1.2 % EXTERNAL LAB SCRIBED NRBC Abs 0 0 - 0.012 K/cumm EXTERNAL LAB SCRIBED Lymphocytes Abs 0.47(A) 0.9 - 3.2 k/cumm EXTERNAL LAB SCRIBED Monocytes Abs 0.3 0.1 - 0.6 k/cumm EXTERNAL LAB SCRIBED Neutrophils Abs 3.5 1.3 - 6.7 k/cumm EXTERNAL LAB SCRIBED Imm Granulocytes Abs 0.01 0.00 - 0.031 EXTERNAL LAB SCRIBED Eosinophils Abs 0 0 - 0.3 k/cumm EXTERNAL LAB SCRIBED Basophils Abs 0 0 - 0.1 k/cumm EXTERNAL LAB SCRIBED MCV 86.4 80 - 100 fl EXTERNAL LAB Blood specimen (specimen) 03/21/2021 us Ryann RASHID LAB BLOOD ORDERABLES Final Result EXTERNAL LAB * CT Abdomen Pelvis W WO Contrast (03/21/2021) Anatomical Region Laterality Modality Body N/A Computed Tomogra phy us Ryann RASHID IMG CT PROCEDURES Final Re sult documented in this encounter Visit Diagnoses Diagnosis Acute cystitis with hematuria- Primary Acute left flank pain History of nephrolithiasis documented in this encounter Discontinued Medications Medication Sig Discontinue Reason Start Date End Da te potassium chloride ER (KLOR-CON) 20 mEq CR tablet Take 1 tablet (20 mEq total) by mouth 2 (two) times a day 03/22/2020 03/21/2021 documented as of this encounter Care Teams Turpentine Distiller Relationship Specialty Start Date End Date Ryann Galdamez PA PCP - General Six Sigma Black Trainer 07/16/20 04/01/21 documented as of this encounter
--- OUTSIDE RECORDS SUMMARY | 2024-03-13 01:12 | XMS_ITS | Encounter Summary ---
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 Gender Identity Not on file Sexual Orientation Not on file documented as of this encounter Plan of Treatment Not on file documented as of this encounter Procedures Procedure Name Priority Date/Time Associated Diagnosis Comments CT ABDOMEN PELVIS W WO CONTRAST Schedule EDIS, Read EDIS (Appt Today, Awaiting Results) 03/21/2021 Acute cystitis with hematuria Acute left flank pain History of nephrolithiasis documented in this encounter Results * CT Abdomen Pelvis W WO Contrast (03/21/2021) Anatomical Region Laterality Modality Body N/A Computed Tomogra phy Ryann RASHID IMG CT PROCEDURES Final Re sult documented in this encounter Visit Diagnoses Diagnosis Acute cystitis with hematuria Acute left flank pain History of nephrolithiasis documented in this encounter Care Teams Relay Tester Relationship Specialty Start Date End Date Ryann Galdamez PA PCP - General Pen Tender 07/16/20 04/01/21 documented as of this encounter
--- OUTSIDE RECORDS SUMMARY | 2024-03-13 01:12 | XMS_ITS | Encounter Summary ---
Author Organization [facility] Address [address] [place] [address] Care Team Providers Care Smoke And Flame Specialist Name Role Phone Ryann Galdamez Primary Care Provider +1- [phone] Reason for Visit * Reason Onset Date Comments Anemia 05/17/2021 Encounter Details Date Type Department Care Team (Late st Contact Info) Description 05/17/2021 Telephone [facility] Family Medicine [address] [place] [address] Ryann Galdamez PA [address] [address] [place] [address] Anemia Social History Tobacco Use Types Packs/Day Years [...] on file 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 We discussed potential etiologies of anemia and will enter order for quest for later this week for further investigation. Please retrieve her labs from urology from the last week as she is unsure of her hgb level. SEWING MACHINE OPERATOR * Telephone Encounter - Karoline Cooper LPN - 05/17/2021 10:35 AM TAPE SEWING MACHINE OPERATOR Patient called in, states she has urology surgery on Thursday. States urologist had her complete bloodwork prior to surgery and they called today informing her that she's anemic. Per patient's most recent lab results entered by PCP, she was anemic in March. Patient states arniehas never been told this before and would like to discuss with PCP. Advised PCP is out of the office today, but will send note and we will call her on Thursday. She was fine with that plan. SEWING MACHINE OPERATOR documented in this encounter Plan of Treatment Scheduled Orders Name Type Priority Associated Diagnoses Orde r Schedule CBC with auto differential Lab Routine Anemia, unspecified type Expected: 05/20/2021, Expires: 05/20/2022 Iron profile w/ IBC Lab Routine Anemia, unspecified type Expected: 05/20/2021, Expires: 05/20/2022 Ferritin Lab Routine Anemia, unspecified type Expected: 05/20/2021, Expires: 05/20/2022 Vitamin B12 Lab Routine Anemia, unspecified type Expected: 05/20/2021, Expires: 05/20/2022 FIT occult blood, fecal Lab Routine Anemia, unspecified type Expected: 05/20/2021, Expires: 05/20/2022 documented as of this encounter Visit Diagnoses Diagnosis Anemia, unspecified type- Primary documented in this encounter Care Teams Smoke And Flame Specialist Relationship Specialty Start Date End Date Ryann Galdamez PA PCP - General Principal Technical Writer 04/02/21 01/22/22 documented as of this encounter
--- OUTSIDE RECORDS SUMMARY | 2024-03-13 01:12 | XMS_ITS | Encounter Summary ---
Author Organization [facility] Address [address] [place] [address] Care Team Providers Care Cloth Baler Name Role Phone Ryann Galdamez Primary Care Provider +1- [phone] Encounter Details Date Type Department Care Team (Late st Contact Info) Description 03/19/2021 Orders Only [facility] Family Medicine [address] [place] [address] Ryann Galdamez PA [address] [place] [address] [facility] (current) use of insulin (HCC) (Primary Dx); Controlled type 2 diabetes mellitus with hyperglycemia, without long-term current use of insulin (CMS/HCC) (HCC) Social History Tobacco Use Types [...] on file 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
--- OUTSIDE RECORDS SUMMARY | 2024-03-13 01:12 | XMS_ITS | Encounter Summary ---
Author Organization [facility] Address [address] [place] [address] Phone Care Team Providers Care Sap Data Architect Name Role Phone Ryann Galdamez Primary Care Provider +1- [phone] Reason for Visit * Reason Onset Date Comments Eliquis rec's for Lithotripsy 05/09/2021 Encounter Details Date Type Department Care Team (Late st Contact Info) Description 05/09/2021 Telephone 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 Verb understanding. She said she really appreciated the care and kindness Dr. Walker has given her and will miss her very much when she is gone. CTOR REVENUE * Telephone Encounter - Cathleen Walker MD - 05/09/2021 1:50 PM CST I'm sorry to hear about this. This is so sad. She will need to hold her eliquis 48 hours prior, resume when okay per urology CTOR REVENUE * Telephone Encounter - Daisy Hansen - 05/09/2021 1:34 PM CST Spoke with pt. She said she has been having bloody urine off and on since due to a large kidney stone. Her Urologist said it has to come out and wants her to have a laser and shock wave procedure to break up the stone and remove it. She was told she will have to be off Eliquis for this procedure and asked to reach out to Dr. Walker to confirm how long she could HOLD the Eliquis. Informed her I would f/u with CRISTINA and call her back. She also was very tearful during our conversation. She said she lost her in September and this weekend lost her 57yr old son to COVID pneumonia. Emotional support given. CTOR REVENUE * Telephone Encounter - Lili Zelaya - 05/09/2021 12:40 PM CST Aaron Pt calling to speak with a nurse about a procedure she is supposed to have, she is not scheduled for it yet but pt is wanting to know how long she should be off her eliquis CTOR REVENUE documented in this encounter Plan of Treatment Not on file documented as of this encounter Visit Diagnoses Not on filedocumented in this encounter Care Teams Sap Data Architect Relationship Specialty Start Date End Date Ryann Galdamez PA PCP - General Capacitor Assembler 04/02/21 01/22/22 documented as of this encounter
--- OUTSIDE RECORDS SUMMARY | 2024-03-13 01:12 | XMS_ITS | Encounter Summary ---
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 I spoke with patient at the time of the call and review the results. More formal documentation is pending. Per the verbal report I received, the patient has bilateral nonobstructing nephrolithiasis, and her bladder is normal. I reviewed this with the patient at the time of the phone call. She declines to report to the er now, will send in norco and have her continue with bactrim. Will await lab results. Will refer her to urology. YTICAL SCIENTIST documented in this encounter Plan of Treatment Not on file documented as of this encounter Visit Diagnoses Diagnosis History of nephrolithiasis- Primary Acute cystitis with hematuria documented in this encounter Care Teams Office Services Coordinator Relationship Specialty Start Date End Date Ryann Galdamez PA PCP - General Guest House Manager 07/16/20 04/01/21 documented as of this encounter
--- OUTSIDE RECORDS SUMMARY | 2024-03-13 01:12 | XMS_ITS | Encounter Summary ---
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 She continues to drive and manages her own medications. 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 She has had a challenging year as her son recently from COVID complications2 weeks ago and she lost her in September 2020. MEDICATION CHANGES 1. CONTINUE eliquis 5mg twice daily 2. CONTINUE crestor 20mg daily 3. START prozac 40mg daily 4. STOP aspirin 81mg daily 5. STOP xanax for anxiety Spoke w/ pt and states pretty good overall- but cannot shut brain off as anxious- feels everything is heaping on her- denies cp/sob/fever/chills/[place]/Dizziness/lightheadness- is getting around w/ walker - feels like that thought process is good- denies any drooping of face/denies weakness/tingling /numbness of extremities- states does not feel like eating- no N/V- is drinking h2o and has protein drinks-BS 142--no issues w/ BMs/urination--her brother, Shahram- staying w/ her-Shahram and sonElio are ontaking turns staying w/ her at nite- Discharge medication list from [facility] in [facility]- reviewed and reconciled with current outpatient medications.ing w/ her- wants to know as if should continue her Klor- con 20 meq bid- and wants to discuss as to no xanax- will call pcp today for a f/u- and return to ER for emergent needs- has my phone number- Araceli Carrasquillo RN, BSN [facility] Continuous Still Operator for High Risk [phone] * Telephone Encounter - Araceli Carrasquillo RN - 05/26/2021 2:16 PM CDT [facility]- ER admit 05/25/21 [facility]- per [facility] notes- noticed drooping of the left side of her face and slurred speech. 05/26/21- post op day 1- 81 y.o. woman who presented with acute right M2 occlusion s/p mechanical thrombectomy and TICI3 complete reperfusion. ?? Plan: Continue post-thrombectomy care per Neuro ICU team And recent history in last week--- HX 05/21/21 outpt at [facility]- RIGHT EXTRA CORPOREAL SHOCK WAVE LITHOTRIPSY?? CYSTOSCOPY WITH POSSIBLE RIGHT RETROGRADE PYELOGRAM?? 05/22/21- [facility] ER-81yo female with PMH HTN, DM, AFib, DVT/PE who presents to the ED for evaluation of flank pain. Yesterday, she underwent lithotripsy (Marek). [...] pain which is what prompted today's visit. ED Course / Medical Decision Making The patient has a stone fragment at the right UVJ. We will alleviate her pain and nausea which havereturned after the percocet wore off. Following this, we will plan for discharge home with continued PRN percocet and followup with Dr. Jara. In addition, we will provide daily flomax and PRN zofran D/C plan undetermined- supportive family- Araceli Carrasquillo RN, BSN [facility] Continuous Still Operator for High Risk [phone] documented in this encounter Plan of Treatment Not on file documented as of this encounter Visit Diagnoses Not on filedocumented in this encounter Care Teams Digital Sales Planner Relationship Specialty Start Date End Date Ryann Galdamez PA PCP - General Deputy Sheriff Court Services 04/02/21 01/22/22 documented as of this encounter
--- OUTSIDE RECORDS SUMMARY | 2024-03-13 01:12 | XMS_ITS | Encounter Summary ---
Author Organization [facility] Address [address] [place] [address] Phone Care Team Providers Care Refinery Operator Helper Crude Unit Name Role Phone Ryann Galdamez Primary Care Provider +1- [phone] Encounter Details Date Type Department Care Team (Late st Contact Info) Description 05/15/2021 Telephone [facility] Cardiology [address]th [place] [address] [place] [address] Cathleen Walker MD [address] [facility] [address] [place] [address] Social History Tobacco Use Types [...] on file Legal Sex Female 4:[address]ER Gender Identity Not on file Sexual Orientation Not on file documented as of this encounter Miscellaneous Notes * Telephone Encounter - Paulina Bright RN - 05/15/2021 2:[address] CLEANER Spoke w/ pt She understands her BP is at goal w/ the medication She will continue to monitor and call if it changes CLEANER * Telephone Encounter - Cathleen Walker MD - 05/15/2021 2:17 PM CST Agree. Continue to monitor. Provide reassurance. CLEANER * Telephone Encounter - Paulina Bright RN - 05/15/2021 11:[address] CLEANER Should I call to reassure that ok to have higher BP then go down after meds? I know she has had stress w/ loss of son and pending surgery CLEANER * Telephone Encounter - Yessica Mcknight - 05/15/2021 11:18 AM CST Aaron Pt asking to speak with the nurse regarding her BP. Pt states when she wakes in the morning it is around 147/100 or higher then when she takes her medication it will drop to 125/81 or lower. Pt has been under a lot of stress lately. Please call. CLEANER documented in this encounter Plan of Treatment Not on file documented as of this encounter Visit Diagnoses Not on filedocumented in this encounter Care Teams Refinery Operator Helper Crude Unit Relationship Specialty Start Date End Date Ryann Galdamez PA PCP - General Play Writer 04/02/21 01/22/22 documented as of this encounter
--- OUTSIDE RECORDS SUMMARY | 2024-03-13 01:13 | XMS_ITS | Encounter Summary ---
Author Organization [facility] Address [address] [place] [address] Phone Care Team Providers Care Core Shaper Name Role Phone Ryann Galdamez Primary Care Provider +1- [phone] Encounter Details Date Type Department Care Team (Late st Contact Info) Description 08/29/2020 Telephone [facility] Cardiology [address]th [place] [address] [place] [address] Cathleen Walker MD [address] [facility] [address] [place] [address] Social History Tobacco Use Types [...] points, staff should administer the PHQ-9) 0 09/18/2020 Comments No Sex and Gender Information Value Date Recorded Sex Assigned at Not on file 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 Gender Identity Not on file Sexual Orientation Not on file documented as of this encounter Miscellaneous Notes * Telephone Encounter - Paulina Bright RN - 09/04/2020 5:08 PM CDT See other note, having cath 09/13 * Telephone Encounter - Paulina Bright RN - 08/29/2020 11:31 AM CDT Spoke w/ pt She will start meds, but needs to call back about [facility] dates 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 needs to make sure when will work for her/him She will call back by Thursday w/ dates * Telephone Encounter - Paulina Bright RN - 08/29/2020 11:[address] Walker: Mild LV dysfunction and moderate ischemia Refer for [facility] Start asa 81 mg daily and imdur 15 mg daily * Telephone Encounter - Alise Anderson - 08/29/2020 11:15 AM CDT ABE WOULD LIKE STRESS TEST RESULTS documented in this encounter Plan of Treatment Not on file documented as of this encounter Visit Diagnoses Not on filedocumented in this encounter Care Teams Core Shaper Relationship Specialty Start Date End Date Ryann Galdamez PA PCP - General Minister 07/16/20 04/01/21 documented as of this encounter
--- OUTSIDE RECORDS SUMMARY | 2024-03-13 01:13 | XMS_ITS | Encounter Summary ---
Author Organization [facility] Address [address] [place] [address] Care Team Providers Care Parcel Post Truck Driver Name Role Phone Ryann Galdamez Primary Care Provider +1- [phone] Encounter Details Date Type Department Care Team (Late st Contact Info) Description 12/03/2020 Telephone [facility] Family Medicine [address] [place] [address] Ryann Galdamez PA [facility] [place] [address] Social History Tobacco Use Types [...] more points, staff should administer the PHQ-9) 2 11/29/2020 Comments No Sex and Gender Information Value Date Recorded Sex Assigned at Not on file 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 Patient verbalized understanding. * Telephone Encounter - Ryann Ayala PA - 12/03/2020 2:10 PM CDT Ok - have her add metformin 500mg in AMs. Continue glipizide same. Ask her to report in to us over the coming week. * Telephone Encounter - Ingrid Milligan MA - 12/03/2020 1:45 PM CDT Called patient gave results for the weekend. 17th 7am 143 Noon 212 4pm 124 18th 7:30 152 1pm 168 4:30pm 134 19th 7:30 188 10am 197 5:30pm 152 7:30 177 9am 195 Noon 157 * Telephone Encounter - Ryann Ayala PA - 12/03/2020 7:13 AM CDT Please do f/u call and see how patient did this weekend with glucose. We had discontinued her metformin and increased her glipizide. documented in this encounter Plan of Treatment Not on file documented as of this encounter Visit Diagnoses Not on filedocumented in this encounter Care Teams Parcel Post Truck Driver Relationship Specialty Start Date End Date Ryann Galdamez PA PCP - General Student Services Vice President 07/16/20 04/01/21 documented as of this encounter
--- OUTSIDE RECORDS SUMMARY | 2024-03-13 01:13 | XMS_ITS | Encounter Summary ---
Author Organization [facility] Address [address] [place] [address] Phone Care Team Providers Care Filling Room Operator Name Role Phone Ryann Galdamez Primary Care Provider +1- [phone] Encounter Details Date Type Department Care Team (Late st Contact Info) Description 09/21/2020 Telephone [facility] Cardiology [address] 8[address] [place] [address] [place] [address] Cathleen Walker MD [address] [facility] [address] [place] [address] Social History Tobacco Use Types [...] points, staff should administer the PHQ-9) 0 10/16/2020 Comments No Sex and Gender Information Value Date Recorded Sex Assigned at Not on file 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 Pls call pt to discuss documented in this encounter Plan of Treatment Not on file documented as of this encounter Visit Diagnoses Not on filedocumented in this encounter Care Teams Filling Room Operator Relationship Specialty Start Date End Date Ryann Galdamez PA PCP - General Account Executive Trainee 07/16/20 04/01/21 documented as of this encounter
--- OUTSIDE RECORDS SUMMARY | 2024-03-13 01:13 | XMS_ITS | Encounter Summary ---
Author Organization [facility] Address [address] [place] [address] Care Team Providers Care Shipping Checker Name Role Phone Ryann Galdamez Primary Care Provider +1- [phone] Reason for Visit * Reason Comments Follow-up Encounter Details Date Type Department Care Team (Late st Contact Info) Description 10/16/2020 2:30 PM CDT Office Visit [facility] Family Medicine [address] [place] [address] Ryann Galdamez PA [facility] [place] [address] Obesity (BMI 30-39.9) (Primary Dx); Anxiety; Dizziness; Type 2 diabetes mellitus without complication, without long-term current use of insulin (CMS/HCC) (HCC); Essential hypertension; Weakness of both lower extremities Social History Tobacco Use Types Packs/Day Years [...] on file 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 Gender Identity Not on file Sexual Orientation Not on file documented as of this encounter Last Filed Vital Signs Vital Sign Reading Time Taken Comments Blood Pressure 100/70 10/16/2020 2:39 PM CDT Pulse 74 10/16/2020 2:39 PM CDT Temperature 36.6 ??C (97.8 ??F) 10/16/2020 2:39 PM CD T Respiratory Rate - - Oxygen Saturation 97% 10/16/2020 2:39 PM CDT Inhaled Oxygen Concentration - - Weight 90.8 kg (200 lb 1.3 oz) 10/16/2020 2:39 P M CDT Height 157.5 cm (5' 2.01 ) 10/16/2020 2:39 PM CD T Body Mass Index 36.59 10/16/2020 2:39 PM CDT documented in this encounter Ordered Prescriptions Prescription Sig Dispense Quantity Refills Last Filled Start Date End Date SITagliptin (JANUVIA) 50 mg tabletIndications: type 2 diabetes mellitus Take 1 tablet (50 mg total) by mouth daily 30 tablet 11 10/16/2020 10/29/2020 documented in this encounter Progress Notes * Ryann Ayala PA - 10/16/2020 2:30 PM CDT Images from the original note were not included. Chief Complaint Follow-up HPI Here for f/u niddm, htn. Sugar 140-170s bp 128/81 this AM, otherwise has been running 100/70s Since last ov, her husb passed from prostate cancer. She notes that this process has been difficult, but he had organized things and has taken care of her. Due to his organization and plans, financesand belongings are addressed for her and the children, and she is thankful. She has several of her own children who have additionally been supportive. She wants to get back into walking but has leg weakness, which she attributes to her left knee fracture in the last year. Allergies as of 10/16/2020 - Reviewed 10/16/2020 Allergen Reaction Noted ??? Amlodipine Shortness of breath 07/21/2019 ??? Prasanth inhibitors Cough ??? Citalopram ??? Lisinopril Outpatient Encounter Medications as of 10/16/2020 Medication Sig Dispense Refill ??? acetaminophen (TYLENOL) 500 mg tablet Take 1,000 mg by mouth as needed for pain ??? ALPRAZolam (XANAX) 0.25 mg tablet Take 1 tablet (0.25 mg total) by mouth daily as needed for anxiety 30 tablet 0 ??? aspirin 81 mg enteric coated tablet Take 1 tablet (81 mg total) by mouth daily 30 tablet 11 ??? budesonide (RHINOCORT AQUA) 32 mcg/actuation nasal spray Administer 2 sprays into each nostril daily 1 Bottle 1 ??? buPROPion XL (WELLBUTRIN XL) 150 mg 24 hr tablet Take 150 mg by mouth daily ??? CALCIUM CARBONATE ORAL Take 600 mg by mouth 2 (two) times a day ??? carvediloL (COREG) 25 mg tablet TAKE 1 TABLET BY MOUTH TWICE A DAY WITH FOOD 180 tablet 3 ??? dilTIAZem CD/XR/XT (CARDIZEM CD,DILACOR XR) 120 mg 24 hr capsule Take 1 capsule (120 mg total) by mouth daily 30 capsule 11 ??? Eliquis 5 mg tablet TAKE 1 TABLET BY MOUTH TWICE A DAY 180 tablet 3 ??? furosemide (LASIX) 20 mg tablet TAKE 20MG TABLET ALONG WITH 40MG TABLET FOR TOTAL DAILY DOSE OF60MG 30 tablet 11 ??? furosemide (LASIX) 40 mg tablet TAKE 40MG WITH 20MG TABLET FOR TOTAL DAILY DOSE OF 60MG 30 tablet 11 ??? isosorbide mononitrate ER (IMDUR) 30 mg 24 hr tablet Take 1 tablet (30 mg total) by mouth daily15 tablet 11 ??? levothyroxine (SYNTHROID) 50 mcg tablet Take 25 mcg by mouth 2 (two) times a day 1 ??? metFORMIN (GLUCOPHAGE) 1,000 mg tablet Take 1,000 mg by mouth daily ??? potassium chloride ER (KLOR-CON) 20 mEq CR tablet Take 1 tablet (20 mEq total) by mouth 2 (two)times a day (Patient taking differently: Take 20 mEq by mouth daily ) 180 tablet 3 ??? rosuvastatin (CRESTOR) 20 mg tablet TAKE 1 TABLET BY MOUTH EVERY DAY 90 tablet 3 ??? zolpidem (AMBIEN) 5 mg tablet Take 1 tablet (5 mg total) by mouth nightly as needed for sleep 30 tablet 0 ??? [DISCONTINUED] losartan (COZAAR) 25 mg tablet Take 1 tablet (25 mg total) by mouth daily 30 tablet 3 ??? [DISCONTINUED] SITagliptin (JANUVIA) 25 mg tablet Take 1 tablet (25 mg total) by mouth daily 30tablet 3 ??? SITagliptin (JANUVIA) 50 mg tablet Take 1 tablet (50 mg total) by mouth daily 30 tablet 11 No facility-administered encounter medications on file as of 10/16/2020. Review of Systems Constitutional: Negative for fatigue, [...] confusion. The patient is not nervous/anxious. Vitals: 10/16/20 1439 BP: 100/70 BP Location: Left arm Patient Position: Sitting Pulse: 74 Temp: 36.6 ??C (97.8 ??F) SpO2: 97% Weight: 90.8 kg (200 lb 1.3 oz) Height: 157.5 cm (5' 2.01 ) Physical Exam Vitals and nursing note reviewed. Constitutional: General: She is not in acute distress. Appearance: Normal appearance. She is normal weight. She is not ill-appearing or toxic-appearing. HENT: Head: Normocephalic and atraumatic. Eyes: Extraocular Movements: Extraocular movements intact. Cardiovascular: Rate and Rhythm: Normal rate. Heart sounds: Normal heart sounds. No murmur [...] Diagnoses and all orders for this visit: Obesity (BMI 30-39.9) (E66.9) (Primary) Assessment & Plan: Obesity is unchanged. Discussed the patient's BMI. The BMI is above average. BMI management plan is completed. BMI Follow-up includes: nutrition counseling, exercise counseling and education provided. Anxiety (F41.9) Assessment & Plan: Slightly increased at this time, has good support system. Using prn xanax and will let us know whenneeds refilled. Dizziness (R42) Type 2 diabetes mellitus without complication, without long-term current use of insulin ([facility]) (HCC) (E11.9) Assessment & Plan: Increase januvia to 50mg every day We discussed discontinuing and changing to glipizide when due for refill - januvia is too costly Essential hypertension (I10) Assessment & Plan: Discontinue losartan Has appt pending with cv that she will keep Will monitor home bp with goal 120/80 Weakness of both lower extremities (R29.898) - Ambulatory referral order to Physical Therapy -; Future Other orders - SITagliptin (JANUVIA) 50 mg tablet; Take 1 tablet (50 mg total) by mouth daily Orders Placed This Encounter ??? Ambulatory referral order to Physical Therapy - Standing Status: Future Standing Expiration Date: 10/16/2021 Referral Priority: Routine Referral Type: Consultation Referral Reason: Specialty Services Required Referral Location: External Order Requested Specialty: Physical Therapy Number of Visits Requested: 24 ??? SITagliptin (JANUVIA) 50 mg tablet Sig: Take 1 tablet (50 mg total) by mouth daily Dispense: 30 tablet Refill: 11 RACHID Jenkins documented in this encounter Miscellaneous Notes * Assessment & Plan Note - Ryann Ayala PA - 10/16/2020 8:00 PM CDT Associated Problem(s): Anxiety (Resolved 03/03/2023) Slightly increased at this time, has good support system. Using prn xanax and will let us know whenneeds refilled. * Assessment & Plan Note - Ryann Ayala PA - 10/16/2020 8:00 PM CDT Associated Problem(s): Type 2 diabetes mellitus without complications (CMS/HCC) ([facility]) Increase januvia to 50mg every day We discussed discontinuing and changing to glipizide when due for refill - januvia is too costly * Assessment & Plan Note - Ryann Ayala PA - 10/16/2020 3:03 PM CDT Associated Problem(s): Essential hypertension Discontinue losartan Has appt pending with cv that she will keep Will monitor home bp with goal 120/80 * Assessment & Plan Note - Ingrid Milligan MA - 10/16/2020 2:42 PM CDTAssociated Problem(s): BMI 30.0-30.9,adult (Resolved 10/09/2022) Obesity is unchanged. Discussed the patient's BMI. The BMI is above average. BMI management plan is completed. BMI Follow-up includes: nutrition counseling, exercise counseling and education provided. documented in this encounter Plan of Treatment Not on file documented as of this encounter Visit Diagnoses Diagnosis Obesity (BMI 30-39.9)- Primary Anxiety Anxiety state, unspecified Dizziness Dizziness and giddiness Type 2 diabetes mellitus without complication, without long-term current use of insulin (CMS/HCC) (HCC) Essential hypertension Unspecified essential hypertension Weakness of both lower extremities documented in this encounter Discontinued Medications Medication Sig Discontinue Reason Start Date End Da te losartan (COZAAR) 25 mg tablet Take 1 tablet (25 mg total) by mouth daily 09/18/2020 10/16/2020 SITagliptin (JANUVIA) 25 mg tabletIndications:type 2 diabetes mellitus Take 1 tablet (25 mg total) by mouth daily 09/04/2020 10/16/2020 documented as of this encounter Care Teams Shipping Checker Relationship Specialty Start Date End Date Ryann Galdamez PA PCP - General Pastry Supervisor 07/16/20 04/01/21 documented as of this encounter
--- OUTSIDE RECORDS SUMMARY | 2024-03-13 01:13 | XMS_ITS | Encounter Summary ---
Author Organization [facility] Address [address] [place] [address] Care Team Providers Care Pattern Chain Builder Name Role Phone Ryann Galdamez Primary Care Provider +1- [phone] Reason for Visit * Reason Onset Date Comments Hyperglycemia 12/10/2020 Encounter Details Date Type Department Care Team (Late st Contact Info) Description 12/10/2020 Telephone [facility] Family Medicine [address] [place] [address] Ryann Galdamez PA [facility] [place] [address] Hyperglycemia Social History Tobacco Use Types Packs/Day Years [...] on file 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 Please update her med list with these changes. * Telephone Encounter - Ingrid Milligan MA - 12/10/2020 5:01 PM CDT Called and informed patient. Patient verbalized understanding. Patient wanting to let provider knowthat her cardiac dr decreased her lasix because she was dehydrated. * Telephone Encounter - Ryann Ayala PA - 12/10/2020 4:00 PM CDT Looks like numbers are significantly improving. We can add the second dose of metformin 500mg if she hasn't had any numbers 90 or less (she's currently supposed to be taking 500mg once daily). * Telephone Encounter - Karoline Cooper LPN - 12/10/2020 1:12 PM CDT Patient called to report gluscose levels as requested by PCP -- 12/07/2020 7am - 134 10am - 237 (pt states she ate prunes prior to this reading) 1pm - 136 5pm - 120 12/08/2020 8am - 111 5pm - 120 12/09/2020 7am - 134 11am - 172 2pm - 172 8pm - 132 12/10/2020 8am - 175 documented in this encounter Plan of Treatment Not on file documented as of this encounter Visit Diagnoses Not on filedocumented in this encounter Care Teams Pattern Chain Builder Relationship Specialty Start Date End Date Ryann Galdamez PA PCP - General Telephone Operator Chief 07/16/20 04/01/21 documented as of this encounter
--- OUTSIDE RECORDS SUMMARY | 2024-03-13 01:13 | XMS_ITS | Encounter Summary ---
Author Organization [facility] Address [address] [place] [address] Phone Care Team Providers Care Fitter Placer Name Role Phone Ryann Galdamez Primary Care Provider +1- [phone] Encounter Details Date Type Department Care Team (Late st Contact Info) Description 09/03/2020 Telephone [facility] Cardiology [address] [facility] [place] Advanced Medicine [address]th [place] [address] [place] [address] Cathleen Walker MD [address] [facility] [address] [place] [address] Social History Tobacco Use Types Packs/Day Years Used Date Smoking Tobacco: Never Smokeless Tobacco: Never Alcohol Use Standard Drinks/Week Comments Yes 0 (1 standard drink = 0.6 oz pur e alcohol) 1/mo PHQ-2 Answer Date Recorded PHQ-2 Total Score (If total score is 3 or more points, staff should administer the PHQ-9) 0 09/04/2020 Comments No Sex and Gender Information Value Date Recorded Sex Assigned at Not on file 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 Gender Identity Not on file Sexual Orientation Not on file documented as of this encounter Miscellaneous Notes * Telephone Encounter - Paulina Bright RN - 09/11/2020 1:44 PM CDT Spoke w/ pt Shared lab results, normal * Telephone Encounter - Paulina Bright RN - 09/03/2020 2:46 PM CDT Spoke w/ pt She confirmed 09/13 for cath Labs ordered for [facility], she will draw by end of week Asked pt to hold eliquis 3 days prior, metformin day before and day of, and diuretics day of She wrote all instructions down and confirmed * Telephone Encounter - Paulina Bright RN - 09/03/2020 2:38 PM CDT Spoke w/ CCL, the only date that week available is 09/13 L[facility] for pt, shared this is the date, asked her to call back to confirm Entered open case Will have pt redraw lab work, see where she wants to draw * Telephone Encounter - Paulina Bright RN - 09/03/2020 1:49 PM CDT [facility] for CCL, asked for call back * Telephone Encounter - Paulina Bright RN - 09/03/2020 11:15 AM CDT Per notes, pt needs [facility] She informed me today, she can do 09/11 or that following Thu-Thu Will call CCL for date Pt had labs on 08/20 so will need to check if more is required documented in this encounter Plan of Treatment Not on file documented as of this encounter Visit Diagnoses Not on filedocumented in this encounter Care Teams Fitter Placer Relationship Specialty Start Date End Date Ryann Galdamez PA PCP - General Television Repairman 07/16/20 04/01/21 documented as of this encounter
--- OUTSIDE RECORDS SUMMARY | 2024-03-13 01:13 | XMS_ITS | Encounter Summary ---
Author Organization [facility] Address [address] [place] [address] Care Team Providers Care Certified Prosthetist/Orthotist Name Role Phone Ryann Galdamez Primary Care Provider +1- [phone] Reason for Visit * Reason Comments Follow-up Encounter Details Date Type Department Care Team (Late st Contact Info) Description 10/29/2020 11:00 AM CDT Office Visit [facility] Family Medicine [address] [place] [address] Ryann Galdamez PA [address] [place] [address] Type 2 diabetes mellitus without complication, without long-term current use of insulin (CMS/HCC) (HCC) (Primary Dx); Obesity (BMI 30-39.9); Episode of recurrent major depressive disorder, unspecified depression episode severity (HCC); Blister Social History Tobacco Use Types Packs/Day Years [...] points, staff should administer the PHQ-9) 0 10/29/2020 Comments No Sex and Gender Information Value Date Recorded Sex Assigned at Not on file 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 Gender Identity Not on file Sexual Orientation Not on file documented as of this encounter Last Filed Vital Signs Vital Sign Reading Time Taken Comments Blood Pressure 100/70 10/29/2020 11:12 AM CDT Pulse 55 10/29/2020 11:12 AM CDT Temperature 36.3 ??C (97.4 ??F) 10/29/2020 1 1:12 AM CDT Respiratory Rate - - Oxygen Saturation 97% 10/29/2020 11: 12 AM CDT Inhaled Oxygen Concentration - - Weight 88.4 kg (194 lb 14.4 oz) 021 11:12 AM CDT Height 157.5 cm (5' 2.01 ) 10/29/2020 1 1:12 AM CDT Body Mass Index 35.64 10/29/2020 11:12 AM CDT documented in this encounter Ordered Prescriptions Prescription Sig Dispense Quantity Refills Last Filled Start Date End Date ALPRAZolam (XANAX) 0.25 mg tablet Take 1 tablet (0.25 mg total) by mouth daily as needed for anxiety 30 tablet 10/29/2020 1 Synthroid 50 mcg tablet Take 1 tablet (50 mcg total) by mouth daily 30 tablet 3 10/29/2020 1 buPROPion XL (WELLBUTRIN XL) 300 mg 24 hr tablet Take 1 tablet (300 mg total) by mouth every morning 30 tablet 1 10/29/2020 1 glipiZIDE (GLUCOTROL) 5 mg tabletIndications: type 2 diabetes mellitus Take 0.5 tablets (2.5 mg total) by mouth daily 15 tablet 1 10/29/2020 1 documented in this encounter Progress Notes * Ryann Ayala PA - 10/29/2020 11:00 AM CDT Images from the original note were not included. Chief Complaint Follow-up HPI Here for f/u of dm type 2 and discussion of blister on finger. Sugar running 150s, yesterday had a 200. Has been without januvia x 48h due to insurance issues andwondering about changing to something cheaper. Still grieving loss of husb (1mo ago), and living in their house but his daughters are starting to create a lot of drama for the executor of the estate. Patient feels that she's in the middle of it all, worried about where she might live if they decide to create too much of a problem. Has not felt like doing things she's previously enjoyed, feeling down often. Blister on right index finger that seemed to grow in the last few weeks. Not hurting at this time. Allergies as of 10/29/2020 - Reviewed 10/29/2020 Allergen Reaction Noted ??? Amlodipine Shortness of breath 07/21/2019 ??? Prasanth inhibitors Cough ??? Citalopram ??? Lisinopril Outpatient Encounter Medications as of 10/29/2020 Medication Sig Dispense Refill ??? acetaminophen (TYLENOL) 500 mg tablet Take 1,000 mg by mouth as needed for pain ??? aspirin 81 mg enteric coated tablet Take 1 tablet (81 mg total) by mouth daily 30 tablet 11 ??? budesonide (RHINOCORT AQUA) 32 mcg/actuation nasal spray Administer 2 sprays into each nostril daily 1 Bottle 1 ??? CALCIUM CARBONATE ORAL Take 600 mg [...] total) by mouth daily15 tablet 11 ??? metFORMIN (GLUCOPHAGE) 1,000 mg tablet Take 1,000 mg by mouth daily ??? potassium chloride ER (KLOR-CON) 20 mEq CR tablet Take 1 tablet (20 mEq total) by mouth 2 (two)times a day (Patient taking differently: Take 20 mEq by mouth daily ) 180 tablet 3 ??? rosuvastatin (CRESTOR) 20 mg tablet TAKE 1 TABLET BY MOUTH EVERY DAY 90 tablet 3 ??? [DISCONTINUED] buPROPion XL (WELLBUTRIN XL) 150 mg 24 hr tablet Take 150 mg by mouth daily ??? [DISCONTINUED] levothyroxine (SYNTHROID) 50 mcg tablet Take 25 mcg by mouth 2 (two) times a day1 ??? ALPRAZolam (XANAX) 0.25 mg tablet Take 1 tablet (0.25 mg total) by mouth daily as needed for anxiety 30 tablet 0 ??? buPROPion XL (WELLBUTRIN XL) 300 mg 24 hr tablet Take 1 tablet (300 mg total) by mouth every morning 30 tablet 1 ??? dilTIAZem CD 120 mg 24 hr capsule TAKE 1 CAPSULE BY MOUTH EVERY DAY 90 capsule 3 ??? glipiZIDE (GLUCOTROL) 5 mg tablet Take 0.5 tablets (2.5 mg total) by mouth daily 15 tablet 1 ??? Synthroid 50 mcg tablet Take 1 tablet (50 mcg total) by mouth daily 30 tablet 3 ??? zolpidem (AMBIEN) 5 mg tablet Take 1 tablet (5 mg total) by mouth nightly as needed for sleep 30 tablet 0 ??? [DISCONTINUED] ALPRAZolam (XANAX) 0.25 mg tablet Take 1 tablet (0.25 mg total) by mouth daily as needed for anxiety 30 tablet 0 ??? [DISCONTINUED] SITagliptin (JANUVIA) 50 mg tablet Take 1 tablet (50 mg total) by mouth daily (Patient not taking: Reported on 10/29/2020) 30 tablet 11 No facility-administered encounter medications on file as of 10/29/2020. Review of Systems Constitutional: Negative for fatigue, fever and unexpected weight change. HENT: Negative for congestion. Respiratory: Negative for cough, chest tightness and shortness of breath. Cardiovascular: Negative for chest pain and palpitations. Gastrointestinal: Negative for abdominal pain. Genitourinary: Negative for difficulty urinating and dysuria. Musculoskeletal: Negative for arthralgias and back pain. Skin: Negative for color change. blister Neurological: Negative for dizziness. Hematological: Does not bruise/bleed easily. Psychiatric/Behavioral: Positive for dysphoric mood. Negative for confusion. The patient is not nervous/anxious. Vitals: 10/29/20 1112 BP: 100/70 BP Location: Left arm Patient Position: Sitting Pulse: 55 Temp: 36.3 ??C (97.4 ??F) SpO2: 97% Weight: 88.4 kg (194 lb 14.4 oz) Height: 157.5 cm (5' 2.01 ) Physical Exam Vitals and nursing note reviewed. Constitutional: General: She is not in acute distress. Appearance: Normal appearance. She is not ill-appearing, toxic-appearing or diaphoretic. HENT: Head: Normocephalic and atraumatic. Pulmonary: Effort: Pulmonary effort is normal. Breath sounds: Normal breath sounds. Musculoskeletal: Cervical back: Normal range of motion. Skin: General: Skin is warm. Comments: 2mm mildly erythematous raised, hard cyst vs. blister right index finger. Neurological: General: No focal deficit present. Mental Status: She is alert and oriented to person, place, and time. Mental status is at baseline. Psychiatric: Mood and Affect: Mood normal. Behavior: Behavior normal. Thought Content: Thought content normal. Judgment: Judgment normal. Comments: Tearful at times Assessment/Plan Diagnoses and all orders for this visit: Type 2 diabetes mellitus without complication, without long-term current use of insulin ([facility]) (HCC) (E11.9) (Primary) Assessment & Plan: Discontinue januvia due to cost Will start on low dose glipizide, advised monitoring for hypoglycemia and dizziness. Will increase over the coming weeks pending response. Obesity (BMI 30-39.9) (E66.9) Assessment & Plan: Obesity is unchanged. Discussed the patient's BMI. The BMI is above average. BMI management plan is completed. BMI Follow-up includes: nutrition counseling, exercise counseling and education provided. Episode of recurrent major depressive disorder, unspecified depression episode severity ([facility]) (F33.9) Assessment & Plan: Increase wellbutrin, continue with xanax prn Blister (T14.8XXA) Assessment & Plan: Offered and advised referral for excision, she declines at this time Other orders - glipiZIDE (GLUCOTROL) 5 mg tablet; Take 0.5 tablets (2.5 mg total) by mouth daily - buPROPion XL (WELLBUTRIN XL) 300 mg 24 hr tablet; Take 1 tablet (300 mg total) by mouth every morning - Synthroid 50 mcg tablet; Take 1 tablet (50 mcg total) by mouth daily - ALPRAZolam (XANAX) 0.25 mg tablet; Take 1 tablet (0.25 mg total) by mouth daily as needed for anxiety Orders Placed This Encounter ??? glipiZIDE (GLUCOTROL) 5 mg tablet Sig: Take 0.5 tablets (2.5 mg total) by mouth daily Dispense: 15 tablet Refill: 1 ??? buPROPion XL (WELLBUTRIN XL) 300 mg 24 hr tablet Sig: Take 1 tablet (300 mg total) by mouth every morning Dispense: 30 tablet Refill: 1 ??? Synthroid 50 mcg tablet Sig: Take 1 tablet (50 mcg total) by mouth daily Dispense: 30 tablet Refill: 3 ??? ALPRAZolam (XANAX) 0.25 mg tablet Sig: Take 1 tablet (0.25 mg total) by mouth daily as needed for anxiety Dispense: 30 tablet Refill: 0 RACHID Jenkins documented in this encounter Miscellaneous Notes * Assessment & Plan Note - Ryann Ayala PA - 10/29/2020 12:37 PM CDT Associated Problem(s): Blister (Resolved 10/09/2022) Offered and advised referral for excision, she declines at this time * Assessment & Plan Note - Ryann Ayala PA - 10/29/2020 12:36 PM CDT Associated Problem(s): Moderate episode of recurrent major depressive disorder (HCC) Increase wellbutrin, continue with xanax prn * Assessment & Plan Note - Ryann Ayala PA - 10/29/2020 12:36 PM CDT Associated Problem(s): Type 2 diabetes mellitus without complications (CMS/HCC) (HCC) Discontinue januvia due to cost Will start on low dose glipizide, advised monitoring for hypoglycemia and dizziness. Will increase over the coming weeks pending response. * Assessment & Plan Note - Ingrid Milligan MA - 10/29/2020 11:14 AM CDTAssociated Problem(s): BMI 30.0-30.9,adult (Resolved 10/09/2022) Obesity [...] current use of insulin (CMS/HCC) (HCC)- Primary Obesity (BMI 30-39.9) Episode of recurrent major depressive disorder, unspecified depression episode severity (HCC) Blister Other, multiple, and unspecified sites, blister, without mention of infection documented in this encounter Discontinued Medications Medication Sig Discontinue Reason Start Date End Da te SITagliptin (JANUVIA) 50 mg tabletIndications:type 2 diabetes mellitus Take 1 tablet (50 mg total) by mouth daily 10/16/2020 10/29/2020 buPROPion XL (WELLBUTRIN XL) 150 mg 24 hr tablet Take 150 mg by mouth daily 10/29/2020 levothyroxine (SYNTHROID) 50 mcg tablet Take 25 mcg by mouth 2 (two) times a day 03/24/2018 10/29/2020 ALPRAZolam (XANAX) 0.25 mg tablet Take 1 tablet (0.25 mg total) by mouth daily as needed for anxiety Reorder 09/18/2020 10/29/2020 documented as of this encounter Care Teams Certified Prosthetist/Orthotist Relationship Specialty Start Date End Date Ryann Galdamez PA PCP - General Internet Sales Representative 07/16/20 04/01/21 documented as of this encounter
--- OUTSIDE RECORDS SUMMARY | 2024-03-13 01:13 | XMS_ITS | Encounter Summary ---
Author Organization [facility] Address [address] [place] [address] Care Team Providers Care Solar Sales Name Role Phone Ryann Galdamez Primary Care Provider +1- [phone] Encounter Details Date Type Department Care Team (Late st Contact Info) Description 11/22/2020 Orders Only [facility] Family Medicine [address] [place] [address] Ryann Galdamez PA [address] [place] [address] Social History Tobacco Use Types [...] more points, staff should administer the PHQ-9) 4 11/12/2020 Comments No Sex and Gender Information Value Date Recorded Sex Assigned at Not on file 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 Female 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 Gender Identity Not on file Sexual Orientation Not on file documented as of this encounter Ordered Prescriptions Prescription Sig Dispense Quantity Refills Last Filled Start Date End Date metFORMIN (GLUCOPHAGE) 1,000 mg tablet Take 1 tablet (1,000 mg total) by mouth 2 (two) times a day with meals 60 tablet 3 11/22/2020 11/29/2020 documented in this encounter Plan of Treatment Not on file documented as of this encounter Visit Diagnoses Not on filedocumented in this encounter Discontinued Medications Medication Sig Discontinue Reason Start Date End Da te metFORMIN (GLUCOPHAGE) 1,000 mg tablet Take 1,000 mg by mouth daily 09/17/2020 11/22/2020 buPROPion XL (WELLBUTRIN XL) 150 mg 24 hr tabletIndications:Anxiet y Take 1 tablet (150 mg total) by mouth every morning 11/12/2020 11/22/2020 buPROPion XL (WELLBUTRIN XL) 150 mg 24 hr tablet Take 1 tablet (150 mg total) by mouth every morning 11/20/2020 11/22/2020 documented as of this encounter Care Teams Solar Sales Relationship Specialty Start Date End Date Ryann Galdamez PA PCP - General Hospital Carrier 07/16/20 04/01/21 documented as of this encounter
--- OUTSIDE RECORDS SUMMARY | 2024-03-13 01:13 | XMS_ITS | Encounter Summary ---
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 It is scanned in the chart. * Telephone Encounter - Ryann Ayala PA - 09/05/2020 7:14 AM CDT Please call [facility] imaging and retrieve results of xray of left ribcage from 09/04/20. documented in this encounter Plan of Treatment Not on file documented as of this encounter Visit Diagnoses Not on filedocumented in this encounter Care Teams Sql Developer Dba Relationship Specialty Start Date End Date Ryann Galdamez PA PCP - General Twister Doffer 07/16/20 04/01/21 documented as of this encounter
--- OUTSIDE RECORDS SUMMARY | 2024-03-13 01:13 | XMS_ITS | Encounter Summary ---
Author Organization [facility] Address [address] [place] [address] Phone Care Team Providers Care Stake Setter Name Role Phone Ryann Galdamez Primary Care Provider +1- [phone] Encounter Details Date Type Department Care Team (Late st Contact Info) Description 12/06/2020 Telephone [facility] Cardiology 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 Pt is not sure what it was regarding. Pls call pt when able. documented in this encounter Plan of Treatment Not on file documented as of this encounter Visit Diagnoses Not on filedocumented in this encounter Care Teams Stake Setter Relationship Specialty Start Date End Date Ryann Galdamez PA PCP - General Candy Vendor 07/16/20 04/01/21 documented as of this encounter
--- OUTSIDE RECORDS SUMMARY | 2024-03-13 01:13 | XMS_ITS | Encounter Summary ---
Author Organization [facility] Address [address] [place] [address] Phone Care Team Providers Care Facilities Technician Name Role Phone Ryann Galdamez Primary Care Provider [phone]- [phone] Reason for Visit * Consultation (Routine) - Closed Specialty Diagnoses / Procedures Referred By Indra muñoz Referred To Contact Otolaryngology Diagnoses Thyroid nodule Ryann Galdamez PA Phone: tel: fax: Jermaine Martinez MD [address] [place] [address] Phone: tel: fax: Referral ID Status Reason Start Date Expiration Date V isits Requested Visits Authorized [id number] Closed Specialty Services Required 11/12/2020 11/13/2021 12 12 Encounter Details Date Type Department Care Team (Late st Contact Info) Description 12/19/2020 10:20 AM CDT Office Visit [facility] ([facility]) - [facility] ENT [address] [facility] 11th [place] [address] [place] [address] Jermaine Martinez MD [address] [place] [address] Thyroid nodule (Primary Dx) Social History Tobacco Use Types [...] on file Legal Sex Female 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 HISTORY OF PRESENT ILLNESS: Dear Dr. Galdamez, Thank you for asking me to evaluate Ms. Pearce in the [facility] Otolaryngology - Head and Neck Surgery Clinic. The patient is accompanied today by her daughter in law. As you know she hada knee injury and suffered a pulmonary embolus in the recent past and on a CT scan of the chest forher pulmonary embolus she was found to have thyroid nodules. Regarding her thyroid history she was told she had an overactive thyroid in the past and received radioactive iodine. She states she has never had a biopsy of her thyroid gland. Based on these incidental nodules on the scan she underwent an ultrasound that shows bilateral thyroid nodules and she is here for further workup. She is asymptomatic from these at this time. They are completely incidental. Past Medical History: Diagnosis Date ??? Adrenal [...] ??? INCISION AND DRAINAGE FEMUR Left 05/22/2019 Allergies Allergen Reactions ??? Amlodipine Shortness of breath ??? Prasanth Inhibitors Cough Reaction: COUGH, ??? Citalopram ??? Lisinopril Current Outpatient Medications: ??? acetaminophen (TYLENOL) 500 mg tablet, Take 1,000 mg by mouth as needed for pain, Disp: , Rfl: ??? ALPRAZolam (XANAX) 0.25 mg tablet, Take 1 tablet (0.25 mg total) by mouth daily as needed for anxiety, Disp: 30 tablet, Rfl: 0 ??? aspirin 81 mg enteric coated tablet, Take 1 tablet (81 mg total) by mouth daily, Disp: 30 tablet, Rfl: 11 ??? CALCIUM CARBONATE ORAL, Take 600 mg by mouth 2 (two) times a day, Disp: , Rfl: ??? carvediloL (COREG) 25 mg tablet, TAKE 1 TABLET BY MOUTH TWICE A DAY WITH FOOD, Disp: 180 tablet, Rfl: 3 ??? dilTIAZem CD 120 mg 24 hr capsule, TAKE 1 CAPSULE BY MOUTH EVERY DAY, Disp: 90 capsule, Rfl: 3 ??? Eliquis 5 mg tablet, TAKE 1 TABLET BY MOUTH TWICE A DAY, Disp: 180 tablet, Rfl: 3 ??? furosemide (LASIX) 40 mg tablet, Take 1 tablet (40 mg total) by mouth daily, Disp: 30 tablet, Rfl: 11 ??? glipiZIDE (GLUCOTROL) 10 mg tablet, Take 1 tablet (10 mg total) by mouth 2 (two) times a day before breakfast and lunch, Disp: 60 tablet, Rfl: 3 ??? metFORMIN (GLUCOPHAGE) 500 mg tablet, Take 1 tablet (500 mg total) by mouth 2 (two) times a daywith meals, Disp: 60 tablet, Rfl: 3 ??? potassium chloride ER (KLOR-CON) 20 mEq CR tablet, Take 1 tablet (20 mEq total) by mouth 2 (two) times a day (Patient taking differently: Take 20 mEq by mouth daily ), Disp: 180 tablet, Rfl: 3 ??? rosuvastatin (CRESTOR) 20 mg tablet, TAKE 1 TABLET BY MOUTH EVERY DAY, Disp: 90 tablet, Rfl: 3 ??? sertraline (ZOLOFT) 50 mg tablet, Take 1 tablet (50 mg total) by mouth daily, Disp: 30 tablet, Rfl: 1 ??? Synthroid 50 mcg tablet, Take 1 tablet (50 mcg total) by mouth daily, Disp: 30 tablet, Rfl: 3 ??? zolpidem (AMBIEN) 10 mg tablet, Take 10 mg by mouth nightly as needed, Disp: , Rfl: Social History Socioeconomic History ??? Marital status: Spouse name: Not on file ??? Number of children: Not on file ??? Years of education: Not on file ??? Highest education level: Not on file Occupational History ??? Not on file Tobacco Use ??? Smoking status: Never Smoker ??? Smokeless tobacco: Never Used Substance and Sexual Activity ??? Alcohol use: Yes Comment: 1/mo ??? Drug use: Never ??? Sexual activity: Defer Other Topics Concern ??? Not on file Social History Narrative ??? Not on file Social Determinants of Health Financial Resource Strain: ??? Difficulty of Paying Living Expenses: Not on file Food Insecurity: ??? Worried About Running Out of Food in the Last Year: Not on file ??? Ran Out of Food in the Last Year: Not on file Transportation Needs: ??? Lack of Transportation (Medical): Not on file ??? Lack of Transportation (Non-Medical): Not on file Physical Activity: ??? Days of Exercise per Week: Not on file ??? Minutes of Exercise per Session: Not on file Stress: ??? Feeling of Stress : Not on file Social Connections: ??? Frequency of Communication with Friends and Family: Not on file ??? Frequency of Social Gatherings with Friends and Family: Not on file ??? Attends Yazidi Services: Not on file ??? Active Member of Clubs or Organizations: Not on file ??? Attends Club or Organization Meetings: Not on file ??? Marital Status: Not on file Intimate Partner Violence: ??? Fear of Current or Ex-Partner: Not on file ??? Emotionally Abused: Not on file ??? Physically Abused: Not on file ??? Sexually Abused: Not on file Family History Problem Relation [...] Anesthesia problems Neg Hx REVIEW OF SYSTEMS A complete review of systems was completed by the patient on the Patient History Form and reviewed with the patient during the visit. The patient intake form, including the past medical history, past surgical history, social history,family history, medications, allergies and review of systems was reviewed in its entirety and was signed and dated by myself. The Patient History Form can be found in the electronic medical record asa scanned document. PHYSICAL EXAM: Constitutional: There were no vitals taken for this visit. General: Well-developed, well-nourished in no apparent distress. Appropriate affect. Head and Face: Normocephalic, atraumatic. Skin: No cutaneous lesions of the face or neck. Neurologic: Cranial nerves II through XII are grossly intact. Eyes: Pupils are equal, round, and reactive to light and accommodation. Extraocular muscles are intact. No scleral icterus or injection. Ears: Auricles are unremarkable bilaterally. Nose: Dorsum is midline. No masses or polyps visualized on anterior rhinoscopy. No drainage or discharge. Oral Cavity/Oropharynx: No visible mucosal lesions. Tongue protrudes midline. Neck: No evidence of lymphadenopathy, masses or tenderness. The salivary gland examination is normal bilaterally. Endocrine: Bilateral palpable abnormalities of the thyroid gland. Cardiovascular: Extremities are warm and well perfused. Pulmonary: Normal quiet breathing. No respiratory distress, stridor, or wheeze. PROCEDURE PERFORMED: US Guided FNA of right and left thyroid mass: After timeout and consent, the skin was injected with lidocaine. The right and left thyroid noduleswere each identified under the US probe. Using US guidance and assistance from the cytopathology distribution field technician, 3 samples were taken from the nodule on the left and 5 from the right and sent for pathologic evaluation. The patient tolerated this well. There were no complications. DATA REVIEWED: Pathology Reports: 12/19/2020 Fine-needle aspiration of right and left thyroid nodules today were benign Radiology Reports: I reviewed the report of an ultrasound performed on 11/20/2020 that shows a right thyroid nodule 1.4 cm and a left thyroid nodule 2.5 cm. Old Records/Discussion with MD: I reviewed the note from Dr. Galdamez from 11/29/2020 describing her difficulty controlling diabetes and anxiety recently and referral for the thyroid nodules. IMPRESSION: Bilateral benign thyroid nodule PLAN: We discussed that the results of the FNA were benign bilaterally. Therefore I will see her elba as-needed basis. I am happy to see her should anything change in the future. She will call if anything changes. Thank you for allowing me to participate in the care of Ms. Pearce. Should you have any questions or concerns, please do not hesitate to contact my office. Warm regards, Jermaine Martinez M.D. [facility] Department of Otolaryngology - Head & Neck Surgery [facility] documented in this encounter Plan of Treatment Not on file documented as of this encounter Visit Diagnoses Diagnosis Thyroid nodule- Primary Nontoxic uninodular goiter documented in this encounter Orders Outpatient Referral Count Last Ordered Date Fir st Ordered Date AMB REFERRAL TO ENT 1 12/19/2020 documented in this encounter Care Teams Facilities Technician Relationship Specialty Start Date End Date Ryann Galdamez PA PCP - General Powder Expert 07/16/20 04/01/21 documented as of this encounter
--- OUTSIDE RECORDS SUMMARY | 2024-03-13 01:13 | XMS_ITS | Encounter Summary ---
Author Organization [facility] Address [address] [place] [address] Care Team Providers Care Medical Manager Name Role Phone Ryann Galdamez Primary Care Provider [phone]- [phone] Reason for Referral * Diagnostic Imaging (Routine) - Closed Specialty Diagnoses / Procedures Referred By Indra t Referred To Contact Diagnoses Rib pain on left side Procedures XR Ribs Left 2 Views Ryann Galdamez PA Phone: tel: fax: Unknown Place of Service fax: Referral ID Status Reason Start Date Expiration Date Visits Re quested Visits Authorized [id number] Closed 09/04/2020 10/04/2021 1 1 Reason for Visit * Reason Comments Chest Wall Pain Encounter Details Date Type Department Care Team (Late st Contact Info) Description 09/04/2020 10:45 AM CDT Office Visit [facility] Family Medicine [address] [place] [id number] Ryann Galdamez PA [facility] [place] [address] Rib pain on left side (Primary Dx); Obesity (BMI 30-39.9); Type 2 diabetes mellitus without complication, without long-term current use of insulin ([facility]); Dyspnea, unspecified type Social History Tobacco Use Types Packs/Day Years [...] on file 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 Gender Identity Not on file Sexual Orientation Not on file documented as of this encounter Last Filed Vital Signs Vital Sign Reading Time Taken Comments Blood Pressure 110/80 09/04/2020 10:52 AM CDT Pulse 86 09/04/2020 10:52 AM CDT Temperature 36.7 ??C (98.1 ??F) 09/04/2020 10:52 AM C DT Respiratory Rate - - Oxygen Saturation 96% 09/04/2020 10:52 AM CDT Inhaled Oxygen Concentration - - Weight 94.6 kg (208 lb 9.6 oz) 09/04/2020 10:52 AM CDT Height 157.5 cm (5' 2.01 ) 09/04/2020 10:52 AM C DT Body Mass Index 38.14 09/04/2020 10:52 AM CDT documented in this encounter Ordered Prescriptions Prescription Sig Dispense Quantity Refills Last Filled Start Date End Date HYDROcodone-acetam inophen (NORCO) 5-325 mg per tabletIndications: Pain Take 1 tablet by mouth every 6 (six) hours as needed for pain for up to 5 days 20 tablet 09/04/2020 09/09/2020 SITagliptin (JANUVIA) 25 mg tabletIndications: type 2 diabetes mellitus Take 1 tablet (25 mg total) by mouth daily 30 tablet 3 09/04/2020 10/16/2020 documented in this encounter Progress Notes * Ryann Ayala PA - 09/04/2020 10:45 AM CDT Images from the original note were not included. Chief Complaint Chest Wall Pain HPI Here for left rib pain. Fell 08/27/20, landed on left hip. Sneezed on Thursday09/01/20 evening, feltand heard a pop, it took her breath away. Hurts to take a deep breath in. Did not hit her head whenshe fell, no LOC. She notes that she was out in the yard weeding and stood up and fell over. She has subsequent bruising on her left hip. Has taken two tabs of norco leftover from her left knee surgery last year. Was on ozempic previously, was having abd pain at times. Notes sugar running 160s on average. Wanting better control of it. Working with cv regarding dyspnea and has a pending cardiac cath over the next few weeks. Concernedregarding breathing and constant sweating. Allergies as of 09/04/2020 - Reviewed 09/04/2020 Allergen Reaction Noted ??? Amlodipine Shortness of breath 07/21/2019 ??? Prasanth inhibitors Cough ??? Citalopram ??? Lisinopril Outpatient Encounter Medications as of 09/04/2020 Medication Sig Dispense Refill ??? acetaminophen (TYLENOL) 500 mg tablet Take 1,000 mg by mouth as needed for pain ??? ALPRAZolam (XANAX) 0.25 mg tablet as needed ??? apixaban (ELIQUIS) 5 mg tablet Take 1 tablet (5 mg total) by mouth 2 (two) times a day 180 tablet 0 ??? aspirin 81 mg enteric coated tablet Take 1 tablet (81 mg total) by mouth daily 30 tablet 11 ??? carvediloL (COREG) 25 mg tablet TAKE 1 TABLET BY MOUTH TWICE A DAY WITH FOOD 180 tablet 0 ??? dilTIAZem CD/XR/XT (CARDIZEM CD,DILACOR XR) 120 mg 24 hr capsule Take 1 capsule (120 mg total) by mouth daily 30 capsule 11 ??? DULoxetine DR (CYMBALTA) 30 mg capsule 30mg daily x 7 days, then 30mg every other day x 7 days,then discontinue. 11 capsule 0 ??? ergocalciferol (VITAMIN D) 50,000 unit capsule Take 50,000 Units by mouth once a week ??? furosemide (LASIX) 40 mg tablet Take 1 tablet (40 mg total) by mouth daily 30 tablet 11 ??? isosorbide mononitrate ER (IMDUR) 30 mg 24 hr tablet Take 1 tablet (30 mg total) by mouth daily15 tablet 11 ??? levothyroxine (SYNTHROID) 50 mcg tablet Take 25 mcg by mouth 2 (two) times a day 1 ??? losartan (COZAAR) 25 mg tablet Take 25 mg by mouth 2 (two) times a day ??? metFORMIN XR (GLUCOPHAGE XR) 500 mg 24 hr tablet Take 1,000 mg by mouth daily with breakfast ??? multivit,iron,minerals/lutein (CENTRUM SILVER ULTRA WOMEN'S ORAL) Take 1 tablet by mouth daily ??? rosuvastatin (CRESTOR) 20 mg tablet Take 1 tablet (20 mg total) by mouth daily 90 tablet 0 ??? spironolactone (ALDACTONE) 25 mg tablet Take 0.5 tablets (12.5 mg total) by mouth daily 15 tablet 11 ??? zolpidem (AMBIEN) 5 mg tablet Take 5 mg by mouth nightly at bedtime. ??? HYDROcodone-acetaminophen (NORCO) 5-325 mg per tablet Take 1 tablet by mouth every 6 (six) hours as needed for pain for up to 5 days 20 tablet 0 ??? ipratropium-albuteroL (DUO-NEB) 0.5-2.5 mg/3 mL nebulizer solution Take 3 mL by nebulization every 6 (six) hours as needed for wheezing or shortness of breath (Patient not taking: Reported on 09/04/2020) ??? potassium chloride ER (KLOR-CON) 20 mEq CR tablet Take 1 tablet (20 mEq total) by mouth 2 (two)times a day (Patient taking differently: Take 20 mEq by mouth daily ) 180 tablet 3 ??? SITagliptin (JANUVIA) 25 mg tablet Take 1 tablet (25 mg total) by mouth daily 30 tablet 3 ??? [DISCONTINUED] buPROPion XL (WELLBUTRIN XL) 150 mg 24 hr tablet Take 1 tablet (150 mg total) bymouth every morning (Patient not taking: Reported on 09/04/2020) 30 tablet 5 No facility-administered encounter medications on file as of 09/04/2020. Review of Systems Constitutional: Negative for fatigue, fever and unexpected weight change. HENT: Negative for congestion. Respiratory: Positive for shortness of breath. Negative for cough, chest tightness and wheezing. Cardiovascular: Negative for chest pain and palpitations. Gastrointestinal: Negative for abdominal pain. Genitourinary: Negative for difficulty urinating and dysuria. Musculoskeletal: Positive for arthralgias. Negative for back pain. Skin: Negative for color change. Neurological: Negative for dizziness. Hematological: Does not bruise/bleed easily. Psychiatric/Behavioral: Negative for confusion. The patient is not nervous/anxious. Vitals: 09/04/20 1052 BP: 110/80 BP Location: Right arm Patient Position: Sitting Pulse: 86 Temp: 36.7 ??C (98.1 ??F) SpO2: 96% Weight: 94.6 kg (208 lb 9.6 oz) Height: 157.5 cm (5' 2.01 ) Physical Exam Vitals and nursing note reviewed. Constitutional: General: She is not in acute distress. Appearance: Normal appearance. She is normal weight. She is not ill-appearing or toxic-appearing. HENT: Head: Normocephalic and atraumatic. Left Ear: Tympanic membrane normal. Eyes: Extraocular Movements: Extraocular movements intact. Cardiovascular: Rate and Rhythm: Normal rate and regular rhythm. Heart sounds: Normal heart sounds. No murmur heard. No friction rub. No gallop. Pulmonary: Effort: Pulmonary effort is normal. No respiratory distress. Breath sounds: Normal breath sounds. No stridor. No wheezing, rhonchi or rales. Chest: Chest wall: No tenderness. Musculoskeletal: General: Tenderness present. No swelling. Normal range of motion. Cervical back: Normal range of motion. Comments: Mild tenderness to palpation of left ribs in midaxillary line. No palpable nodules or masses. Ambulates independently. Skin: General: Skin is warm and dry. Neurological: Mental Status: She is alert and oriented to person, place, and time. Psychiatric: Mood and Affect: Mood normal. Behavior: Behavior normal. Thought Content: Thought content normal. Assessment/Plan Diagnoses and all orders for this visit: Rib pain on left side (R07.81) (Primary) Assessment & Plan: Xray ribs, will notify of results as available Advised norco 1 tab q6h prn pain, advised caution driving for 6h after taking. 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 Orders: - XR Ribs Left 2 Views; Future - HYDROcodone-acetaminophen (NORCO) 5-325 mg per tablet; Take 1 tablet by mouth every 6 (six) hoursas needed for pain for up to 5 days Obesity (BMI 30-39.9) (E66.9) Assessment & Plan: Obesity is unchanged. Discussed the patient's BMI. The BMI is above average. BMI management plan is completed. BMI Follow-up includes: nutrition counseling, exercise counseling and education provided. Type 2 diabetes mellitus without complication, without long-term current use of insulin ([facility]) (E11.9) Assessment & Plan: Add januvia 25mg every day. Will continue with metformin. We reviewed recent labs, encouraged hgb a1c of 6.0%. Encouraged healthier eating habits. Dyspnea, unspecified type (R06.00) Assessment & Plan: Currently being evaluated by automobile accessories salesperson, cardiac cath pending. Will also refer to edger feeder for further evaluation and treatment. Orders: - Ambulatory referral to Pulmonology; Future Other orders - SITagliptin (JANUVIA) 25 mg tablet; Take 1 tablet (25 mg total) by mouth daily Orders Placed This Encounter ??? XR Ribs Left 2 Views Standing Status: Future Number of Occurrences: 1 Standing Expiration Date: 09/04/2021 Order Specific Question: Where should this order be performed? Answer: External Order [171] ??? Ambulatory referral to Pulmonology Standing Status: Future Standing Expiration Date: 09/04/2021 Referral Priority: Routine Referral Type: Consultation Referral Reason: Specialty Services Required Referral Location: [facility] Referred to Provider: Oswaldo Lopez MD Requested Specialty: Pulmonary Disease Number of Visits Requested: 1 ??? SITagliptin (JANUVIA) 25 mg tablet Sig: Take 1 tablet (25 mg total) by mouth daily Dispense: 30 tablet Refill: 3 ??? HYDROcodone-acetaminophen (NORCO) 5-325 mg per tablet Sig: Take 1 tablet by mouth every 6 (six) hours as needed for pain for up to 5 days Dispense: 20 tablet Refill: 0 RACHID Jenkins Cosigned by Cuba Larsen MD at 09/04/2020 1:22 PM CDT documented in this encounter Miscellaneous Notes * Assessment & Plan Note - Ryann Ayala PA - 09/04/2020 12:18 PM CDT Associated Problem(s): Dyspnea (Resolved 02/13/2022) Currently being evaluated by automobile accessories salesperson, cardiac cath pending. Will also refer to edger feeder for further evaluation and treatment. * Assessment & Plan Note - Ryann Ayala PA - 09/04/2020 12:17 PM CDT Associated Problem(s): Type 2 diabetes mellitus without complications (CMS/HCC) (HCC) Add januvia 25mg every day. Will continue with metformin. We reviewed recent labs, encouraged hgb a1c of 6.0%. Encouraged healthier eating habits. * Assessment & Plan Note - Ryann Ayala PA - 09/04/2020 12:16 PM CDT Associated Problem(s): Rib pain on left side (Resolved 10/09/2022) Xray ribs, will notify of results as available Advised norco 1 tab q6h prn pain, advised caution driving for 6h after taking. 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 * Assessment & Plan Note - Ingrid Milligan MA - 09/04/2020 10:55 AM CDTAssociated Problem(s): BMI 30.0-30.9,adult (Resolved 10/09/2022) Obesity is unchanged. Discussed the patient's BMI. The BMI is above average. BMI management plan is completed. BMI Follow-up includes: nutrition counseling, exercise counseling and education provided. documented in this encounter Plan of Treatment Not on file documented as of this encounter Procedures Procedure Name Priority Date/Time Associated Diagnosis Comments XR RIBS LEFT 2 VIEWS Schedule Routine, Read Routine (OP Routine) 09/04/2020 Rib pain on left side documented in this encounter Results * XR Ribs Left 2 Views (09/04/2020) Anatomical Region Laterality Modality Rib, Chest Left Radiographic Emilia ging 09/04/2020 Ryann RASHID IMG XR PROCEDURES Edited R esult - Final documented in this encounter Visit Diagnoses Diagnosis Rib pain on left side- Primary Obesity (BMI 30-39.9) Type 2 diabetes mellitus without complication, without long-term current use of insulin ([facility]) ([facility]) Dyspnea, unspecified type documented in this encounter Discontinued Medications Medication Sig Discontinue Reason Start Date End Da te buPROPion XL (WELLBUTRIN XL) 150 mg 24 hr tablet Take 1 tablet (150 mg total) by mouth every morning 08/21/2020 09/04/2020 documented as of this encounter Care Teams Medical Manager Relationship Specialty Start Date End Date Ryann Galdamez PA PCP - General Emt 07/16/20 04/01/21 documented as of this encounter
--- OUTSIDE RECORDS SUMMARY | 2024-03-13 01:13 | XMS_ITS | Encounter Summary ---
Author Organization [facility] Address [address] [place] [address] Care Team Providers Care Chairman Of The Board Name Role Phone Ryann Galdamez Primary Care Provider [phone] Reason for Visit * Reason Comments Establish Care stress test at [facility] 08/23 Echo 08/31 Encounter Details Date Type Department Care Team (Late st Contact Info) Description 08/21/2020 10:30 AM CDT Office Visit [facility] [address] [place] [id number] Ryann Galdamez PA [facility] [place] [address] Encounter to establish care (Primary Dx); BMI 36.0-36.9,adult; Obesity (BMI 30-39.9); Hypothyroidism, unspecified type; Type 2 diabetes mellitus without complication, without long-term current use of insulin (CMS/HCC); Essential hypertension; Vitamin D deficiency; Sleep disturbance; Anxiety; Episode of recurrent major depressive disorder, unspecified depression episode severity (CMS/HCC); Paroxysmal atrial fibrillation (CMS/HCC); Thyroid nodule; Pica in adults Social History Tobacco Use Types Packs/Day Years Used Date Smoking Tobacco: Never Smokeless Tobacco: Never Alcohol Use Standard Drinks/Week Comments Yes 0 (1 standard drink = 0.6 oz pur e alcohol) 1/mo PHQ-2 Answer Date Recorded PHQ-2 Total Score 6 08/21/2020 Comments No Sex and Gender Information Value Date Recorded Sex Assigned at Not on file Legal Sex Female 4:20 AM WEDDING COORDINATOR Gender Identity Not on file Sexual Orientation Not on file documented as of this encounter Last Filed Vital Signs Vital Sign Reading Time Taken Comments Blood Pressure 120/78 08/21/2020 10:29 AM CDT Pulse 77 08/21/2020 10:29 AM CDT Temperature 35.9 ??C (96.6 ??F) 08/21/2020 10:29 AM C DT Respiratory Rate 18 08/21/2020 10:29 AM CDT Oxygen Saturation 97% 08/21/2020 10:29 AM CDT Inhaled Oxygen Concentration - - Weight 92.5 kg (204 lb) 08/21/2020 10:29 AM CDT Height 158.8 cm (5' 2.5 ) 08/21/2020 10:29 AM CD T Body Mass Index 36.72 08/21/2020 10:29 AM CDT documented in this encounter Ordered Prescriptions Prescription Sig Dispense Quantity Refills Last Filled Start Date End Date buPROPion XL (WELLBUTRIN XL) 150 mg 24 hr tablet Take 1 tablet (150 mg total) by mouth every morning 30 tablet 5 08/21/[address] (CYMBALTA) 30 mg capsule 30mg daily x 7 days, then 30mg every other day x 7 days, then discontinue. 11 capsule 08/21/2020 1 documented in this encounter Progress Notes * Ryann Ayala PA - 08/21/2020 10:30 AM CDT Images from the original note were not included. Chief Complaint Establish Care (stress test at [place] 08/23 // Echo 08/31) HPI Here for new patient establishment. Transferring care from Dr. Cleaning in [place]. She notes history of type 2 dm. She thinks her last hgb a1c was about a year ago. She's not been monitoring her home sugar. husb having medical problems, so she hasn't been monitoring her diet. However, she does note that she tries to not eat as many sweets. She was walking daily for exercise untila year ago. She fell 1y ago prior to the covid pandemic. She was in the garage, slipped on something on the floor. She fell and crushed her left knee, part of the left tibia, and part of the left femur. She had emergency surgery, and then she was discharged to SNF care in [place]. She notes that she developedshortness of breath, ended up calling her , who spoke to the nurse and had her transferred to the ER. She was diagnosed with DVT and PEs, and she was transferred to the ICU. Upon completion ofher stay, she was discharged back to the SNF for rehabilitation. She notes history of afib. 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 she notes a remote history of a cardiac ablation. She notes history of thyroid problems. She states that for years she's had a thyroid nodule on the left lobe, diagnosed and treated by Dr. Serrano, a doctor who was across the street from [facility].She notes that he did radioactive treatment and monitored her for a year. Her insurance then changed, and she transferred her care to Dr. Cleaning. She thinks her last TSH was drawn approximately 1y ago. She notes frequent history of falling. She had a BMD, she thinks 3y ago. She reports that it did show 'problems', and she was advised to start on a medication once a week. She states that she didn't complete treatment as she didn't want another medication. She has chronic dizziness. She does not use the cane she has at home. She at one point fractured her left wrist as well during a fall. 3y ago she fell backwards in the bathroom into the shower doors,and she ended up cracking a bone just above her tailbone. She reports that Dr. Cleaning gave her patches and a cream, and the pain slowly resolved. She states she was told that she has bulging discs and received spinal injections with resolution of pain. She notes chronic sweating. She states that both of her parents and her children are the same way. It is not dependent on the weather. History of belching, was given a 'med that started with a k' that helped. Wasn't able to afford refills. Was told it was likely something with pancreatic motility and digestion of food. Now it's sporadic, feels bloated in upper abdomen at times. She also notes anxiety and worries, tearful at times. Has history of depression treated with cymbalta. Her of 13y has prostate cancer and has been given a prognosis of 3-6mo. She notes that she struggles with helping him, watching him as he's sad. Allergies as of 08/21/2020 - Reviewed 08/21/2020 Allergen Reaction Noted ??? Amlodipine Shortness of breath 07/21/2019 ??? Prasanth inhibitors Cough ??? Citalopram ??? Lisinopril ? ? Ozempic [semaglutide] Nausea & Vomiting 07/21/2019 Outpatient Encounter Medications as of 08/21/2020 Medication Sig Dispense Refill ??? acetaminophen (TYLENOL) 500 mg tablet Take 1,000 mg by mouth as needed for pain ??? ALPRAZolam (XANAX) 0.25 mg tablet as needed ??? apixaban (ELIQUIS) 5 mg tablet Take 1 tablet (5 mg total) by mouth 2 (two) times a day 180 tablet 0 ??? carvediloL (COREG) 25 mg tablet TAKE 1 TABLET BY MOUTH TWICE A DAY WITH FOOD 180 tablet 0 ??? dilTIAZem CD/XR/XT (CARDIZEM CD,DILACOR XR) 120 mg 24 hr capsule Take 1 capsule (120 mg total) by mouth daily 30 capsule 11 ??? ergocalciferol (VITAMIN D) 50,000 unit capsule Take 50,000 Units by mouth once a week ??? furosemide (LASIX) 40 mg tablet Take 1 tablet (40 mg total) by mouth daily 30 tablet 11 ??? ipratropium-albuteroL (DUO-NEB) 0.5-2.5 mg/3 mL nebulizer solution Take 3 mL by nebulization every 6 (six) hours as needed for wheezing or shortness of breath ??? levothyroxine (SYNTHROID) 50 mcg tablet Take [...] Take 1 tablet by mouth daily ??? potassium chloride ER (KLOR-CON) 20 mEq CR tablet Take 1 tablet (20 mEq total) by mouth 2 (two)times a day (Patient taking differently: Take 20 mEq by mouth daily ) 180 tablet 3 ??? rosuvastatin (CRESTOR) 20 mg tablet Take 1 tablet (20 mg total) by mouth daily 90 tablet 0 ??? spironolactone (ALDACTONE) 25 mg tablet Take 0.5 tablets (12.5 mg total) by mouth daily 15 tablet 11 ??? zolpidem (AMBIEN) 5 mg tablet Take 5 mg by mouth nightly at bedtime. ??? [DISCONTINUED] DULoxetine DR (CYMBALTA) 60 mg capsule Take 60 mg by mouth daily ??? buPROPion XL (WELLBUTRIN XL) 150 mg 24 hr tablet Take 1 tablet (150 mg total) by mouth every morning 30 tablet 5 ??? DULoxetine DR (CYMBALTA) 30 mg capsule 30mg daily x 7 days, then 30mg every other day x 7 days,then discontinue. 11 capsule 0 No facility-administered encounter medications on file as of 08/21/2020. Past Medical History: Diagnosis Date ??? Atrial fibrillation (CMS/HCC) ??? Dyslipidemia ??? Hypertension ??? Hypothyroidism ??? Mitral regurgitation ??? Obesity ??? PONV (postoperative nausea and vomiting) ??? Sleep apnea Past Surgical History: Procedure Laterality Date ??? [...] ??? Anesthesia problems Neg Hx Social History Socioeconomic History ??? Marital status: Spouse name: None ??? Number of children: None ??? Years of education: None ??? Highest education level: None Occupational History ??? None Tobacco Use ??? Smoking status: Never Smoker ??? Smokeless tobacco: Never Used Substance and Sexual Activity ??? Alcohol use: Yes Comment: 1/mo ??? Drug use: Never ??? Sexual activity: Defer Other Topics Concern ??? None Social History Narrative ??? None Social Determinants of Health Financial Resource Strain: ??? Difficulty of Paying Living Expenses: Food Insecurity: ??? Worried About Running Out of Food in the Last Year: ??? Ran Out of Food in the Last Year: Transportation Needs: ??? Lack of Transportation (Medical): ??? Lack of Transportation (Non-Medical): Physical Activity: ??? Days of Exercise per Week: ??? Minutes of Exercise per Session: Stress: ??? Feeling of Stress : Social Connections: ??? Frequency of Communication with Friends and Family: ??? Frequency of Social Gatherings with Friends and Family: ??? Attends Spiritism Services: ??? Active Member of Clubs or Organizations: ??? Attends Club or Organization Meetings: ??? Marital Status: Intimate Partner Violence: ??? Fear of Current or Ex-Partner: ??? Emotionally Abused: ??? Physically Abused: ??? Sexually Abused: Review of Systems Constitutional: Positive for diaphoresis. Negative for fatigue, fever and unexpected weight [...] for confusion. The patient is nervous/anxious. Vitals: 08/21/20 1029 BP: 120/78 Pulse: 77 Resp: 18 Temp: (!) 35.9 ??C (96.6 ??F) SpO2: 97% Weight: 92.5 kg (204 lb) Height: 158.8 cm (5' 2.5 ) Physical Exam Vitals and nursing note [...] Diagnoses and all orders for this visit: Encounter to establish care (Primary) BMI 36.0-36.9,adult Assessment & Plan: Obesity is unchanged. Discussed the patient's BMI. The BMI is above average. BMI management plan is completed. BMI Follow-up includes: nutrition counseling, exercise counseling and education provided. Obesity (BMI 30-39.9) Hypothyroidism, unspecified type Assessment & Plan: Fasting labs entered, will notify patient of results as available Orders: - US Soft Tissue Neck; Future - TSH; Future - T4, free; Future - T3, free; Future Type 2 diabetes mellitus without complication, without long-term current use of insulin ([facility]) Assessment & Plan: Fasting labs entered, will notify patient of results as available She will work on lower carb diet Encouraged her to find a pool to exercise in as she has difficulty with left knee/falling Orders: - Hemoglobin A1c; Future Essential hypertension Assessment & Plan: Managed by acquisition marketing manager, continue medication same at this time Vitamin D deficiency Assessment & Plan: Fasting labs entered, will notify patient of results as available Sleep disturbance Assessment & Plan: On prn ambien, will refill as needed Anxiety Assessment & Plan: Has prn xanax, not utilizing often. We discussed not using concomitantly with ambien, advised alternatives. Will start by changing to wellbutrin to see if depression/anxiety is better controlled. Episode of recurrent major depressive disorder, unspecified depression episode severity (CMS/HCC) Assessment & Plan: Will taper cymbalta at her request. Will start on wellbutrin when taper is finished. She was advised to monitor for worsening depression during medication change and let us know if experiencing. Paroxysmal atrial fibrillation (CMS/HCC) Assessment & Plan: Managed by acquisition marketing manager, has pet/ct stress this week. Thyroid nodule Assessment & Plan: Will evaluate further with labs and imaging. She will call to arrange US, will notify us if she hasnot heard results from us 72h after completing the exam. Orders: - US Soft Tissue Neck; Future - TSH; Future - T4, free; Future - T3, free; Future Pica in adults Assessment & Plan: History of, even as a child. Will evaluate further on labs. Orders: - Ferritin; Future - Iron profile w/ IBC; Future Other orders - DULoxetine DR (CYMBALTA) 30 mg capsule; 30mg daily x 7 days, then 30mg every other day x 7 days, then discontinue. - buPROPion XL (WELLBUTRIN XL) 150 mg 24 hr tablet; Take 1 tablet (150 mg total) by mouth every morning Orders Placed This Encounter ??? US Soft Tissue Neck Standing Status: Future Standing Expiration Date: 08/21/2021 Order Specific Question: Where should this order be performed? Answer: External Order [[id number]] ??? Hemoglobin A1c Standing Status: Future Number of Occurrences: 1 Standing Expiration Date: 08/21/2021 ??? TSH Standing Status: Future Number of Occurrences: 1 Standing Expiration Date: 08/21/2021 ??? T4, free Standing Status: Future Number of Occurrences: 1 Standing Expiration Date: 08/21/2021 ??? T3, free Standing Status: Future Number of Occurrences: 1 Standing Expiration Date: 08/21/2021 ??? Ferritin Standing Status: Future Number of Occurrences: 1 Standing Expiration Date: 08/21/2021 ??? Iron profile w/ IBC Standing Status: Future Number of Occurrences: 1 Standing Expiration Date: 08/21/2021 ??? DULoxetine DR (CYMBALTA) 30 mg capsule Simg daily x 7 days, then 30mg every other day x 7 days, then discontinue. Dispense: 11 capsule Refill: 0 ??? buPROPion XL (WELLBUTRIN XL) 150 mg 24 hr tablet Sig: Take 1 tablet (150 mg total) by mouth every morning Dispense: 30 tablet Refill: 5 RACHID Jenkins Cosigned by Cuba Larsen MD at 08/21/2020 4:42 PM CDT documented in this encounter Miscellaneous Notes * Assessment & Plan Note - Ryann Ayala PA - 08/21/2020 4:38 PM CDT Associated Problem(s): Anxiety (Resolved 03/03/2023) Has prn xanax, not utilizing often. We discussed not using concomitantly with ambien, advised alternatives. Will start by changing to wellbutrin to see if depression/anxiety is better controlled. * Assessment & Plan Note - Ryann Ayala PA - 08/21/2020 4:38 PM CDT Associated Problem(s): Moderate episode of recurrent major depressive disorder (HCC) Will taper cymbalta at her request. Will start on wellbutrin when taper is finished. She was advised to monitor for worsening depression during medication change and let us know if experiencing. * Assessment & Plan Note - Ryann Ayala PA - 08/21/2020 4:37 PM CDT Associated Problem(s): Essential hypertension Managed by acquisition marketing manager, continue medication same at this time * Assessment & Plan Note - Ryann Ayala PA - 08/21/2020 4:37 PM CDT Associated Problem(s): Acquired hypothyroidism Fasting labs entered, will notify patient of results as available * Assessment & Plan Note - Ryann Ayala PA - 08/21/2020 4:37 PM CDT Associated Problem(s): Paroxysmal atrial fibrillation (CMS/HCC) (HCC) Managed by acquisition marketing manager, has pet/ct stress this week. * Assessment & Plan Note - Ryann Ayala PA - 08/21/2020 4:37 PM CDT Associated Problem(s): Pica in adults History of, even as a child. Will evaluate further on labs. * Assessment & Plan Note - Ryann Ayala PA - 08/21/2020 4:37 PM CDT Associated Problem(s): AYAD on CPAP On prn ambien, will refill as needed * Assessment & Plan Note - Ryann Ayala PA - 08/21/2020 4:36 PM CDT Associated Problem(s): Thyroid nodule Will evaluate further with labs and imaging. She will call to arrange US, will notify us if she hasnot heard results from us 72h after completing the exam. * Assessment & Plan Note - Ryann Ayala PA - 08/21/2020 4:36 PM CDT Associated Problem(s): Type 2 diabetes mellitus without complications (CMS/HCC) (HCC) Fasting labs entered, will notify patient of results as available She will work on lower carb diet Encouraged her to find a pool to exercise in as she has difficulty with left knee/falling * Assessment & Plan Note - Ryann Ayala PA - 08/21/2020 4:36 PM CDT Associated Problem(s): Vitamin D deficiency (Resolved 03/03/2023) Fasting labs entered, will notify patient of results as available * Assessment & Plan Note - Karoline Cooper LPN - 08/21/2020 10:46 AM CDT Associated Problem(s): BMI 36.0-36.9,adult (Resolved 09/04/2020) Obesity is unchanged. Discussed the patient's BMI. The BMI is above average. BMI management plan is completed. BMI Follow-up includes: nutrition counseling, exercise counseling and education provided. documented in this encounter Plan of Treatment Not on file documented as of this encounter Procedures Procedure Name Priority Date/Time Associated Diagnosis Comments IRON PROFILE W/ IBC Routine 08/31/2020 9 :18 AM CDT Pica in adults T3, FREE Routine 08/31/2020 9:18 AM CDT Hypothyroidism, unspecified type Thyroid nodule TSH Routine 08/31/2020 9:18 AM CDT Hypothyroidism, unspecified type Thyroid nodule T4, FREE Routine 08/31/2020 9:18 AM CDT Hypothyroidism, unspecified type Thyroid nodule HEMOGLOBIN A1C Routine 08/31/2020 9:18 AM CDT Type 2 diabetes mellitus without complication, without long-term current use of insulin ([facility]) FERRITIN Routine 08/31/2020 9:18 AM CDT Pica in adults documented in this encounter Results * (ABNORMAL) Iron profile w/ IBC (08/31/2020 9:18 AM CDT) Iron 101 45 - 160 mcg/dL [facility] TIBC 504(H) 250 - 450 mcg/dL (calc) [facility] Iron saturation 20 16 - 45 % (calc) [facility] Blood specimen (specimen) 08/31/2020 9:18 AM CDT 08/31/2020 9:18 AM CDT Ryann RASHID LAB BLOOD ORDERABLES Final Result Performing Organization Address [facility] Co de Phone Number [facility] [address] [place] [address] * Ferritin (08/31/2020 9:18 AM CDT) Pathologist [facility] Ferritin 20 16 - 288 ng/mL [facility] Blood specimen (specimen) 08/31/2020 9:18 AM CDT 08/31/2020 9:18 AM CDT Ryann RASHID LAB BLOOD ORDERABLES Final Result Performing Organization Address [facility] Co de Phone Number [facility] [address] [place] [address] * T3, free (08/31/2020 9:18 AM CDT) Free T3 3.0 2.3 - 4.2 pg/mL [facility] Blood specimen (specimen) 08/31/2020 9:18 AM CDT 08/31/2020 9:18 AM CDT Ryann RASHID LAB BLOOD ORDERABLES Final Result Performing Organization Address City/[facility] Co de Phone Number [facility] [address] [place] [address] * T4, free (08/31/2020 9:18 AM CDT) Free T4 1.1 0.8 - 1.8 ng/dL [facility] Blood specimen (specimen) 08/31/2020 9:18 AM CDT 08/31/2020 9:18 AM CDT Ryann RASHID LAB BLOOD ORDERABLES Final Result [facility] [address] [place] [address] * TSH (08/31/2020 9:18 AM CDT) Pathologist [facility] TSH 2.24 0.40 - 4.50 mIU/L [facility] Blood specimen (specimen) 08/31/2020 9:18 AM CDT 08/31/2020 9:18 AM CDT Ryann RASHID LAB BLOOD ORDERABLES Final Result Performing Organization Address [facility]/ZIP Co de Phone Number [facility] [address] [place] [address] * (ABNORMAL) Hemoglobin A1c (08/31/2020 9:18 AM CDT) Pathologist [facility] Hgb A1C 7.9(H) <5.7 % of total Hgb [facility] Blood specimen (specimen) 08/31/2020 9:18 AM CDT 08/31/2020 9:18 AM CDT Ryann RASHID LAB BLOOD ORDERABLES Final Result Performing Organization Address City/[facility]/ZIP Co de Phone Number [facility] [address] [address] documented in this encounter Visit Diagnoses Diagnosis Encounter to establish care- Primary BMI 36.0-36.9,adult Obesity (BMI 30-39.9) Hypothyroidism, unspecified type Type 2 diabetes mellitus without complication, without long-term current use of insulin (CMS/HCC) (HCC) Essential hypertension Unspecified essential hypertension Vitamin D deficiency Sleep disturbance Unspecified sleep disturbance Anxiety Anxiety state, unspecified Episode of recurrent major depressive disorder, unspecified depression episode severity (HCC) Paroxysmal atrial fibrillation (CMS/HCC) (HCC) Atrial fibrillation Thyroid nodule 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
--- OUTSIDE RECORDS SUMMARY | 2024-03-13 01:13 | XMS_ITS | Encounter Summary ---
Author Organization [facility] Healthcare Address [address] [place] [address] Care Team Providers Care Visual Basic Developer Name Role Phone Ryann Galdamez Primary Care Provider [phone]- [phone] Reason for Referral * MRI/CAT/PET Scan (Routine) - Closed Specialty Diagnoses / Procedures Referred By Indra t Referred To Contact Radiology Diagnoses Dyspnea, unspecified type Chronic heart failure with preserved ejection fraction (CMS/HCC) (HCC) Procedures PET/CT Myocardial Perfusion Imaging (Multiple) Cathleen Walker MD Phone: tel: fax: [address] [address] Referral ID Status Reason Start Date Expiration Date Visits Re quested Visits Authorized [id number] Closed 08/23/2020 11/21/2020 2 2 Reason for Visit * MRI/CAT/PET Scan (Routine) - Closed Specialty Diagnoses / Procedures Referred By Indra muñoz Referred To Contact Radiology Diagnoses Dyspnea, unspecified type Chronic heart failure with preserved ejection fraction (CMS/HCC) (HCC) Procedures PET/CT Myocardial Perfusion Imaging (Multiple) Cathleen Walker MD Phone: tel: fax: [facility] [address] [facility] [place] [address] Referral ID Status Reason Start Date Expiration Date Visits Re quested Visits Authorized [id number] Closed 08/23/2020 11/21/2020 2 2 Encounter Details Date Type Department Care Team (Late st Contact Info) Description 08/23/2020 1:54 PM CDT - 08/23/2020 11:59 PM CDT Hospital Encounter [facility] [address] [place] [address] Cathleen Walker MD [address] [facility] [address] [facility] [place], [place] [id number] Dyspnea, unspecified type; Chronic heart failure with preserved ejection fraction (CMS/HCC) Discharge Disposition: Discharge to home or self [...] on file Legal Sex Female 4:20 AM [employer]ICK [employer] WORK[employer] Gender Identity Not on file Sexual Orientation Not on file documented as of this encounter Last Filed Vital Signs Vital Sign Reading Time Taken Comments Blood Pressure 121/57 08/23/2020 3:08 PM CDT Pulse 83 08/23/2020 3:08 PM CDT Temperature - - Respiratory Rate - - Oxygen Saturation - - Inhaled Oxygen Concentration - - Weight 91.6 kg (202 lb) 08/23/2020 3:08 PM CDT Height 157.5 cm (5' 2 ) 08/23/2020 3:08 PM CDT Body Mass Index 36.95 08/23/2020 3:08 PM CDT documented in this encounter Medications at Time of Discharge acetaminophen (TYLENOL) 500 mg tablet Take 2 tablets (1,000 mg total) by mouth as needed for pain When Needed 10/10/19 23 ALPRAZolam (XANAX) 0.25 mg tablet as needed 03/14/2020 09/19/19 21 apixaban (ELIQUIS) 5 mg tabletIndications: deep venous thrombosis Take 1 tablet (5 mg total) by mouth 2 (two) times a day 180 tablet 06/26/2020 09/20/19 21 buPROPion XL (WELLBUTRIN XL) 150 mg 24 hr tablet Take 1 tablet (150 mg total) by mouth every morning 30 tablet 5 08/21/2020 09/05/19 21 carvediloL (COREG) 25 mg tablet TAKE 1 TABLET BY MOUTH TWICE A DAY WITH FOOD 180 tablet 07/02/2020 10/02/19 21 dilTIAZem CD/XR/XT (CARDIZEM CD,DILACOR XR) 120 mg 24 hr capsule Take 1 capsule (120 mg total) by mouth daily 30 capsule 11 11/14/2019 10/26/[address] (CYMBALTA) 30 mg capsule 30mg daily x 7 days, then 30mg every other day x 7 days, then discontinue. 11 capsule 08/21/2020 09/12/19 21 ergocalciferol (VITAMIN D) 50,000 unit capsule Take 50,000 Units by mouth once a week 06/30/2019 09/12/19 21 furosemide (LASIX) 40 mg tablet Take 1 tablet (40 mg total) by mouth daily 30 tablet 11 08/06/2020 09/20/19 21 ipratropium-albute roL (DUO-NEB) 0.5-2.5 mg/3 mL nebulizer solutionIndication s:Chronic Obstructive Pulmonary Disease with Bronchospasms Take 3 mL by nebulization every 6 (six) hours as needed for wheezing or shortness of breath 09/12/19 21 levothyroxine (SYNTHROID) 50 mcg tablet Take 25 mcg by mouth 2 (two) times a day 1 03/24/2018 10/30/19 21 losartan (COZAAR) 25 mg tablet Take 50 mg by mouth 2 (two) times a day 04/06/2020 09/19/19 21 metFORMIN XR (GLUCOPHAGE XR) 500 mg 24 hr tablet Take 1,000 mg by mouth nightly 09/19/19 21 multivit,iron,mine rals/lutein (CENTRUM SILVER ULTRA WOMEN'S ORAL) Take 1 tablet by mouth daily 09/12/19 21 potassium chloride ER (KLOR-CON) 20 mEq CR tablet Take 1 tablet (20 mEq total) by mouth 2 (two) times a day 180 tablet 3 03/22/2020 03/21/19 22 rosuvastatin (CRESTOR) 20 mg tablet Take 1 tablet (20 mg total) by mouth daily 90 tablet 06/20/2020 09/12/19 21 spironolactone (ALDACTONE) 25 mg tablet Take 0.5 tablets (12.5 mg total) by mouth daily 15 tablet 11 08/06/2020 09/12/19 21 zolpidem (AMBIEN) 5 mg tablet Take 5 mg by mouth nightly at bedtime. 06/30/2019 09/19/19 21 documented as of this encounter Discharge Disposition Disposition Code Departure Means Destination Discharge to home or self care documented in this encounter Plan of Treatment Not on file documented as of this encounter Procedures Procedure Name Priority Date/Time Associated Diagnosis Comments PET/CT MYOCARDIAL PERFUSION IMAGING (MULTIPLE) Schedule Routine, Read Routine (OP Routine) 08/23/2020 5:25 PM CDT Dyspnea, unspecified type Chronic heart failure with preserved ejection fraction (CMS/HCC) documented in this encounter Results * PET/CT Myocardial Perfusion Imaging (Multiple) (08/23/2020 5:25 PM CDT) Anatomical Region Laterality Modality Body N/A Positron Emissio n Tomography (PET) 08/24/2020 11:2 4 AM CDT Impressions 08/24/2020 5:26 PM CDT 1. ??There is small size, moderate ischemia of inferolateral wall. 2. ??Normal left ventricular size and mildly reduced systolic function. 3. ??Flow quantification with low hyperemic MBF and MFR in the right coronary artery and left circumflex distribution consistent with above ischemia. ?? Dr. aLu and Kathy ??also participated in the interpretation of this examination. Dictated by: Erick Price M.D. The radiology attending physician has personally reviewed this study, and had reviewed and/or edited this written report and agrees with it. Electronically signed by: Nick Rai M.D. Narrative 08/24/2020 5:26 PM CDT EXAMINATION: MYOCARDIAL PET/CT PERFUSION IMAGING (STRESS/REST) DATE OF STUDY: 08/23/2020 SCANNER: mCT RADIOPHARMACEUTICAL: 11.34 mCi N-13 ammonia i.v., ??11.23 mCi N-13 ammonia i.v., ?? HISTORY: 80 year old female with a history of atrial fibrillation, pulmonary embolism, diabetes, cardiomyopathy, and sleep apnea who presents for evaluation of dyspnea on exertion. ??Evaluate for ischemia and/or microvascular dysfunction. TECHNIQUE: Both stress and rest imaging were performed, in the following order: stress/rest. ??The stress portion of the study was performed under the supervision of the Nuclear Medicine Attending Physician. The resting electrocardiographic prior to the start of the test was negative ??for ischemia. ?The electrocardiographic during infusion of the stress agent was negative ??for ischemia. ??A full report of the ECG findings can be found in the MUSE reporting system. Regadenoson Stress and hemodynamics: The patient received 0.4 mg of A2A adenosine receptor agonist Regadenoson (Lexiscan), infused intravenously over 10 seconds, followed approximately 20 seconds later by tracer infusion. Resting heart rate was 83 beats per minute and kristie to a maximum of 86 ??beats per minute two minutes post Lexiscan injection. ??Resting blood pressure was 121/57 ??mmHg and dropped to a mando of 103/66 mm Hg. The test was stopped at the completion of the protocol. The patient reported no symptoms during vasodilation. Imaging: Stress PET/CT myocardial perfusion images were obtained after tracer injection at the peak effect of the drug. ?A minimum of 40 minutes later, rest PET/CT myocardial perfusion images were obtained after resting tracer injection. ?? COMPARISON: None available. FINDINGS: There is a small size, moderate reduction in radiotracer uptake in the inferolateral wall. There is otherwise normal distribution of activity in the left and right ventricular myocardium on both stress and rest images. Gated post-stress images demonstrate normal left ventricular wall thickening. ??The left ventricular volume is normal and the left ventricular ejection fraction is 43% (normal >45%). ??Additional gated rest images demonstrate normal left ventricular wall thickening and a resting left ventricular ejection fraction of 41%. Quantitative analysis of myocardial blood flow (MBF) in ml/g/min and myocardial flow reserve (MFR), calculated using 4DM software: ? MBF-stress ?MBF-rest ?MFR LAD: ? 1.80 ?0.89 ?2.02 ?? LCx: ? 1.65 ? 0.91 ?1.82 ? RCA: ? 1.5 ? 0.93 ?1.62 Global: ?1.61 ? 0.91 ?1.76 ?? (Normal stress MBF>1.80 ml/g/min and MFR>2.0) Incidental findings on the CT images: Right middle pulmonary lobe calcified granuloma, small left renal stone, coronary atherosclerosis, aortic atherosclerosis Procedure Note Nick Rai MD - 08/24/2020 EXAMINATION: MYOCARDIAL PET/CT PERFUSION IMAGING (STRESS/REST) DATE OF STUDY: 08/23/2020 SCANNER: mCT RADIOPHARMACEUTICAL: 11.34 mCi N-13 ammonia i.v., 11.23 mCi N-13 ammonia i.v., HISTORY: 80 year old female with a history of atrial fibrillation, pulmonary embolism, diabetes, cardiomyopathy, and sleep apnea who presents for evaluation of dyspnea on exertion. Evaluate for ischemia and/or microvascular dysfunction. TECHNIQUE: Both stress and rest imaging were performed, in the following order: stress/rest. The stress portion of the study was performed under the supervision of the Nuclear Medicine Attending Physician. The resting electrocardiographic prior to the start of the test was negative for ischemia. The electrocardiographic during infusion of the stress agent was negative for ischemia. A full report of the ECG findings can be found in the MUSE reporting system. Regadenoson Stress and hemodynamics: The patient received 0.4 mg of A2A adenosine receptor agonist Regadenoson (Lexiscan), infused intravenously over 10 seconds, followed approximately 20 seconds later by tracer infusion. Resting heart rate was 83 beats per minute and kristie to a maximum of 86 beats per minute two minutes post Lexiscan injection. Resting blood pressure was 121/57 mmHg and dropped to a mando of 103/66 mm Hg. The test was stopped at the completion of the protocol. The patient reported no symptoms during vasodilation. Imaging: Stress PET/CT myocardial perfusion images were obtained after tracer injection at the peak effect of the drug. A minimum of 40 minutes later, rest PET/CT myocardial perfusion images were obtained after resting tracer injection. COMPARISON: None available. FINDINGS: There is a small size, moderate reduction in radiotracer uptake in the inferolateral wall. There is otherwise normal distribution of activity in the left and right ventricular myocardium on both stress and rest images. Gated post-stress images demonstrate normal left ventricular wall thickening. The left ventricular volume is normal and the left ventricular ejection fraction is 43% (normal >45%). Additional gated rest images demonstrate normal left ventricular wall thickening and a resting left ventricular ejection fraction of 41%. Quantitative analysis of myocardial blood flow (MBF) in ml/g/min and myocardial flow reserve (MFR), calculated using 4DM software: MBF-stress MBF-rest MFR LAD: 1.80 0.89 2.02 LCx: 1.65 0.91 1.82 RCA: 1.5 0.93 1.62 Global: 1.61 0.91 1.76 (Normal stress MBF>1.80 ml/g/min and MFR>2.0) Incidental findings on the CT images: Right middle pulmonary lobe calcified granuloma, small left renal stone, coronary atherosclerosis, aortic atherosclerosis IMPRESSION: 1. There is small size, moderate ischemia of inferolateral wall. 2. Normal left ventricular size and mildly reduced systolic function. 3. Flow quantification with low hyperemic MBF and MFR in the right coronary artery and left circumflex distribution consistent with above ischemia. Dr. Lau and Kathy also participated in the interpretation of this examination. Dictated by: Erick Price M.D. The radiology attending physician has personally reviewed this study, and had reviewed and/or edited this written report and agrees with it. Electronically signed by: Nick Rai M.D. Cathleen Mccormick MD IMG PET PROCEDUR ES Final Result documented in this encounter Visit Diagnoses Diagnosis Dyspnea, unspecified type Chronic heart failure with preserved ejection fraction (CMS/HCC) (HCC) documented in this encounter Administered Medications Inactive Administered Medications - up to 3 most recent administrations Medication Order MAR Action Action Date Dose Rate Site ammonia n-13 (OSIEL Cyclotron) injection 10 millicurie 10 millicurie, intravenous, Once in imaging, radiopharmaceutical, Starting on Yuliana 08/23/20 at 1530, For 1 dose Given 08/23/2020 3:44 PM CDT 11.34 millicuries ammonia n-13 (OSIEL Cyclotron) injection 10 millicurie 10 millicurie, intravenous, Once in imaging, radiopharmaceutical, Starting on Yuliana 08/23/20 at 1546, For 1 dose Given 08/23/2020 4:18 PM CDT 11.23 millicuries regadenoson (LEXISCAN) 0.4 mg/5 mL injection 0.4 mg 0.4 mg, intravenous, Once, On Yulinaa 08/23/20 at 1545, For 1 dose, Intra-Procedure (CV), Administer IV push over 10 seconds., Indications: Myocardial Perfusion Imaging AdjunctIndications:Myocar dial Perfusion Imaging Adjunct Given 08/23/2020 3:43 PM CDT 0.4 mg documented in this encounter Care Teams Visual Basic Developer Relationship Specialty Start Date End Date Ryann Galdamez PA PCP - General Coal Drier Operator 07/16/20 04/01/21 documented as of this encounter
--- OUTSIDE RECORDS SUMMARY | 2024-03-13 01:13 | XMS_ITS | Encounter Summary ---
Author Organization [facility] Medical [facility] Address [address] [place] [address] Care Team Providers Care Cotton Header Name Role Phone Ryann Galdamez Primary Care Provider +1- [phone] Reason for Visit * Reason Comments Diabetes Depression Encounter Details Date Type Department Care Team (Late st Contact Info) Description 02/05/2021 10:15 AM INS[employer] Office Visit [facility] Family Medicine [address] [place] [address] Ryann Galdamez PA [facility] [place] [address] Episode of recurrent major depressive disorder, unspecified depression episode severity (HCC) (Primary Dx); Sleep disturbance; Anxiety; Type 2 diabetes mellitus without complication, without long-term current use of insulin (CMS/HCC) (HCC); Tremor Social History Tobacco Use Types Packs/Day Years [...] PHQ-2 Answer Date Recorded PHQ-2 Total Score 2 02/05/2021 Comments No Sex and Gender Information Value Date Recorded Sex Assigned at Not on file Legal Sex Female 4:20 AM INS[employer] Gender Identity Not on file Sexual Orientation Not on file documented as of this encounter Last Filed Vital Signs Vital Sign Reading Time Taken Comments Blood Pressure 102/84 02/05/2021 10:24 AM [employer] Pulse 64 02/05/2021 10:24 AM [employer] Temperature - - Respiratory Rate 18 02/05/2021 10:24 AM [employer] Oxygen Saturation 98% 02/05/2021 10:24 AM INS[employer] Inhaled Oxygen Concentration - - Weight 75.3 kg (166 lb) 02/05/2021 10:24 AM [employer] Height 157.5 cm (5' 2 ) 02/05/2021 10:24 AM [employer] Body Mass Index 30.36 02/05/2021 10:24 AM [employer] documented in this encounter Ordered Prescriptions Prescription Sig Dispense Quantity Refills Last Filled Start Date End Date FLUoxetine (PROzac) 10 mg tablet/capsule Take 1 tablet/caps ule (10 mg total) by mouth daily 30 tablet/capsule 1 02/05/2021 02/25/2021 documented in this encounter Progress Notes * Ryann Galdamez PA - 02/05/2021 10:15 AM CST Images from the original note were not included. Chief Complaint Diabetes and Depression HPI Here for f/u of depression and dm. Took paxil for a few weeks, reports that it made her feel nervous. Feeling a little better emotionally, has been forcing herself to get out and is feeling better. Labs from 12/27/20 Trembling, no fh of parkinsons Hands and upper chest feeling jittery. Not dropping things. No problems with ambulation. Allergies as of 02/05/2021 - Reviewed 02/05/2021 Allergen Reaction Noted ??? Amlodipine Shortness of breath 07/21/2019 ??? Prasanth inhibitors Cough ??? Citalopram ??? Lisinopril Outpatient Encounter Medications as of 02/05/2021 Medication Sig Dispense Refill ??? acetaminophen (TYLENOL) 500 mg tablet Take 1,000 mg by mouth as needed for pain ??? ALPRAZolam (XANAX) 0.25 mg tablet Take 1 tablet (0.25 mg total) by mouth 3 (three) times a day as needed for anxiety 90 tablet 0 ??? aspirin [...] ??? glipiZIDE (GLUCOTROL) 10 mg tablet Take 1 tablet (10 mg total) by mouth 2 (two) times a day before breakfast and lunch 60 tablet 3 ??? levothyroxine (SYNTHROID) 50 mcg tablet Take 1 tablet (50 mcg total) by mouth daily 30 tablet 11 ??? metFORMIN (GLUCOPHAGE) 500 mg tablet Take 1 tablet (500 mg total) by mouth 2 (two) times a day with meals 60 tablet 3 ??? potassium chloride ER (KLOR-CON) 20 mEq CR tablet Take 1 tablet (20 mEq total) by mouth 2 (two)times a day (Patient taking differently: Take 20 mEq by mouth daily ) 180 tablet 3 ??? rosuvastatin (CRESTOR) 20 mg tablet TAKE 1 TABLET BY MOUTH EVERY DAY 90 tablet 3 ??? zolpidem (AMBIEN) 10 mg tablet TAKE 1 TABLET BY MOUTH NIGHTLY NEEDED FOR SLEEP 30 tablet 0 ??? FLUoxetine (PROzac) 10 mg tablet/capsule Take 1 tablet/capsule (10 mg total) by mouth daily 30 tablet/capsule 1 ??? [DISCONTINUED] PARoxetine (PAXIL) 10 mg tablet Take 1 tablet (10 mg total) by mouth every morning (Patient not taking: Reported on 02/05/2021) 30 tablet 2 No facility-administered encounter medications on file as of 02/05/2021. Review of Systems Constitutional: Negative for fatigue, [...] for confusion. The patient is nervous/anxious. Vitals: 02/05/21 1024 BP: 102/84 Pulse: 64 Resp: 18 SpO2: 98% Weight: 75.3 kg (166 lb) Height: 157.5 cm (5' 2 ) [...] gallop. Pulmonary: Effort: Pulmonary effort is normal. Breath sounds: Normal breath sounds. Musculoskeletal: General: Normal range of motion. Comments: Ambulates independently, no gait changes Mild tremor of hands Neurological: General: No focal deficit present. Mental Status: She is alert and oriented to person, place, and time. Psychiatric: Mood and Affect: Mood normal. Behavior: Behavior normal. Thought Content: Thought content normal. Assessment/Plan Diagnoses and all orders for this visit: Episode of recurrent major depressive disorder, unspecified depression episode severity (HCC) (F33.9) (Primary) Assessment & Plan: Add prozac every day, continue with prn xanax Sleep disturbance (G47.9) Assessment & Plan: Continue with prn ambien Anxiety (F41.9) Assessment & Plan: Add prozac every day, continue with prn xanax Type 2 diabetes mellitus without complication, without long-term current use of insulin ([facility]) ([facility]) (E11.9) Assessment & Plan: Stable, continue meds same at this time Tremor (R25.1) Assessment & Plan: We discussed that her symptoms of tremor in her upper chest are more likely associated with her afib history. She was advised to contact her coating manager if these symptoms continue. We discussed a neurology evaluation for tremor of hands - she declines at this time. Other orders - FLUoxetine (PROzac) 10 mg tablet/capsule; Take 1 tablet/capsule (10 mg total) by mouth daily Orders Placed This Encounter ??? FLUoxetine (PROzac) 10 mg tablet/capsule Sig: Take 1 tablet/capsule (10 mg total) by mouth daily Dispense: 30 tablet/capsule Refill: 1 RACHID Jenkins [employer] documented in this encounter Miscellaneous Notes * Assessment & Plan Note - Ryann Galdamez PA - 02/05/2021 5:42 PM [employer] Associated Problem(s): Tremor (Deleted) We discussed that her symptoms of tremor in her upper chest are more likely associated with her afib history. She was advised to contact her coating manager if these symptoms continue. We discussed a neurology evaluation for tremor of hands - she declines at this time. [employer] * Assessment & Plan Note - Ryann Galdamez PA - 02/05/2021 5:42 PM [employer] Associated Problem(s): Type 2 diabetes mellitus without complications (CMS/HCC) (HCC) Stable, continue meds same at this time [employer] * Assessment & Plan Note - Ryann Galdamez PA - 02/05/2021 5:41 PM [employer] Associated Problem(s): AYAD on CPAP Continue with prn ambien [employer] * Assessment & Plan Note - Ryann Galdamez PA - 02/05/2021 5:41 PM [employer] Associated Problem(s): Moderate episode of recurrent major depressive disorder (HCC) Add prozac every day, continue with prn xanax [employer] * Assessment & Plan Note - Ryann Galdamez PA - 02/05/2021 5:41 PM [employer] Associated Problem(s): Anxiety (Resolved 03/03/2023) Add prozac every day, continue with prn xanax [employer] documented in this encounter Plan of Treatment Not on file documented as of this encounter Visit Diagnoses Diagnosis Episode of recurrent major depressive disorder, unspecified depression episode severity (HCC)- Primary Sleep disturbance Unspecified sleep disturbance Anxiety Anxiety state, unspecified Type 2 diabetes mellitus without complication, without long-term current use of insulin ([facility]/HCC) (HCC) Tremor Abnormal involuntary movements documented in this encounter Discontinued Medications Medication Sig Discontinue Reason Start Date End Da te PARoxetine (PAXIL) 10 mg tabletIndications:Episod e of recurrent major depressive disorder, unspecified depression episode severity (HCC),Anxiety Take 1 tablet (10 mg total) by mouth every morning Alternate therapy 01/17/2021 02/05/2021 documented as of this encounter Care Teams Cotton Header Relationship Specialty Start Date End Date Ryann Galdamez PA PCP - General Meteorologist In Charge 07/16/20 04/01/21 documented as of this encounter
--- OUTSIDE RECORDS SUMMARY | 2024-03-13 01:13 | XMS_ITS | Encounter Summary ---
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 Gave recommendations and asked for call back to schedule appt. * Telephone Encounter - Suki Giraldo - 10/25/2020 10:29 AM CDT Per RACHID Mckeon May apply warm compress to the area. Encourage her to set an appointment with Ryann on Thursday for further evaluation/treatment plan. * Telephone Encounter - Suki Giraldo - 10/25/2020 10:29 AM CDT RACHID Garzon patient, let patient know that RACHID Garzon is not in the office this week. Patient called in and said that she had cyst on her index finger that has now turned into a blister and is tough, that she can't pop it and it is painful. Patient wanting to know if she needs to be seen or ifthere is anything she can do. documented in this encounter Plan of Treatment Not on file documented as of this encounter Visit Diagnoses Not on filedocumented in this encounter Care Teams Director Appointment Relationship Specialty Start Date End Date Ryann Galdamez PA PCP - General [address] Vendor 07/16/20 04/01/21 documented as of this encounter
--- OUTSIDE RECORDS SUMMARY | 2024-03-13 01:13 | XMS_ITS | Encounter Summary ---
Author Organization [facility] Address [address] [place] [address] Care Team Providers Care Feather Sawyer Name Role Phone Ryann Galdamez Primary Care Provider [phone]- [phone] Reason for Visit * Reason Onset Date Comments medication question 02/25/2021 Encounter Details Date Type Department Care Team (Late st Contact Info) Description 02/25/2021 Telephone [facility] Family Medicine [address] [place] [address] Ryann Galdamez PA [facility] [place], [place] [id number] medication question Social History Tobacco Use Types Packs/Day Years [...] on file 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 Gender Identity Not on file Sexual Orientation Not on file documented as of this encounter Ordered Prescriptions Prescription Sig Dispense Quantity Refills Last Filled Start Date End Date zolpidem (AMBIEN) 10 mg tabletIndications: Sleep disturbance Take 1 tablet (10 mg total) by mouth nightly as needed for sleep for sleep 30 tablet 02/26/2021 2 FLUoxetine (PROzac) 20 mg capsule Take 1 capsule (20 mg total) by mouth daily 30 capsule 1 02/25/2021 1 documented in this encounter Miscellaneous Notes * Addendum Note - Ryann Galdamez PA - 02/26/2021 12:55 PM CSTAddended by: RYANN GALDAMEZ on: 02/26/2021 12:55 PM Modules accepted: Orders ER ACCOUNT MANAGER * Telephone Encounter - Ryann Galdamez PA - 02/26/2021 12:54 PM DEALER ACCOUNT MANAGER I sent a 20mg prescription yesterday, but yes she can take 2 of the 10mg in the meantime. i'm refilling her ambien now. ER ACCOUNT MANAGER * Telephone Encounter - Raiza Desir MA - 02/26/2021 10:59 AM CST Patient was informed of provider's note. She will need a new script sent out. Should she take 2 of the 10 mg together or split between morning and night? She also needs a refill of Zolpidem also. She would like a 90 script if possible. ER ACCOUNT MANAGER * Telephone Encounter - Ryann Galdamez PA - 02/25/2021 11:47 AM DEALER ACCOUNT MANAGER Increase prozac to 20mg daily. Ask her to let us know results of this over the next week. ER ACCOUNT MANAGER * Telephone Encounter - Karoline Cooper LPN - 02/25/2021 11:20 AM DEALER ACCOUNT MANAGER Patient called in regarding prozac 10mg, states it's not working. Wondering about increasing dose or changing meds to something that will help more. Patient's best friend passed 02/23/2021, had a couple weeks to help care for her while on hospice and also having to go through the first sal without her . ER ACCOUNT MANAGER documented in this encounter Plan of Treatment Not on file documented as of this encounter Visit Diagnoses Diagnosis Sleep disturbance Unspecified sleep disturbance documented in this encounter Discontinued Medications Medication Sig Discontinue Reason Start Date End Da te FLUoxetine (PROzac) 10 mg tablet/capsule Take 1 tablet/capsule (10 mg total) by mouth daily 02/05/2021 02/25/2021 zolpidem (AMBIEN) 10 mg tabletIndications:Sleep disturbance TAKE 1 TABLET BY MOUTH NIGHTLY NEEDED FOR SLEEP Reorder 02/04/2021 02/26/2021 documented as of this encounter Care Teams Feather Sawyer Relationship Specialty Start Date End Date Ryann Galdamez PA PCP - General Face Boss 07/16/20 04/01/21 documented as of this encounter
--- OUTSIDE RECORDS SUMMARY | 2024-03-13 01:13 | XMS_ITS | Encounter Summary ---
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 She notes that she has sold her motor home and has found a small place to rent - things are going well. She continues with depression and anxiety, sometimes taking 0.5mg daily of xanax. She notes that her sugar has been variable - running in the low 90s-200s. Seems to be up/down all over. She notes that the stress is likely effecting it for her. She's worried about family scenarios as well as appt with ent this week. She will increase her zoloft to 50mg every day, and she will be referred to psychology for counseling. She will let us know over the next week the result of increasing the medication as we can increase from there. * Telephone Encounter - Ingrid Milligan MA - 12/17/2020 12:54 PM CDT Patient called and is asking for an increase on her nerve medication. Please advice. Patient asked if provider could call her. documented in this encounter Plan of Treatment Not on file documented as of this encounter Visit Diagnoses Diagnosis Episode of recurrent major depressive disorder, unspecified depression episode severity (HCC)- Primary documented in this encounter Discontinued Medications Medication Sig Discontinue Reason Start Date End Da te sertraline (ZOLOFT) 25 mg tablet Take 1 tablet (25 mg total) by mouth daily 11/29/2020 12/17/2020 documented as of this encounter Care Teams Cargo Service Agent Relationship Specialty Start Date End Date Ryann Galdamez PA PCP - General Bellstand Attendant 07/16/20 04/01/21 documented as of this encounter
--- OUTSIDE RECORDS SUMMARY | 2024-03-13 01:13 | XMS_ITS | Encounter Summary ---
Author Organization [facility] Address [address] [place] [address] Phone Care Team Providers Care Director Of Oncology Name Role Phone Ryann Galdamez Primary Care Provider +1- [phone] Encounter Details Date Type Department Care Team (Late st Contact Info) Description 12/19/2020 Orders Only [facility] ([facility] - [facility] ENT [address] [place] [address] [place] [address] Jermaine Martinez MD [address] [place], [place] [id number] Social History Tobacco Use Types Packs/Day Years [...] file 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 Gender Identity Not on file Sexual Orientation Not on file documented as of this encounter Plan of Treatment Not on file documented as of this encounter Procedures Procedure Name Priority Date/Time Associated Diagnosis Comments CYTOLOGY Routine 12/19/2020 11:03 AM CDT documented in this encounter Results * Cytology (12/19/2020 11:03 AM CDT) Thyroid 12/19/2020 11:0 3 AM CDT 12/19/2020 12:46 PM CDT Narrative 12/20/2020 4:21 PM CDT EPIC results best viewed via link to PDF [facility] [place] [address] Note to Patients: This report may contain a detailed description of human tissue sent by a health care provider to the laboratory for pathologic evaluation. The content of this report is essential for diagnosis and may provide important critical findings. This information may be unfamiliar to patients to review without a medical professional present. It is advised that the patient review this report in the presence of a health care provider who can answer questions and explain the details. CYTOPATHOLOGY REPORT FINAL Patient Name: ?? EVAN HODGSONYumiko Gender: ??F : ??1940 (Age: 80) Address: ??[address] [place], [place] ??[address] [facility] #: ??[id number] Taken:12/19/2020 Received:12/19/2020 Reported: 12/20/2020 Patient Type: [facility] Ref Lab ?? Service: Laboratory Location: [facility] Physician(s): ??Jermaine Martinez M.D FINAL DIAGNOSIS A. ??Thyroid, left lobe, ultrasound guided fine needle aspiration: ? - Benign ? B. ??Thyroid, right lobe, ultrasound guided fine needle aspiration: ? - Benign ? Comments The direct aspirate smears and ThinPreps confirm the above cited diagnoses. nxk/12/20/2020 14:03 By this signature, I attest that the above diagnosis is based upon my personal examination of the slides(and/or other material indicated in the diagnosis). Eldon Harper, DO Report Electronically Reviewed and Signed Out By ??Eldon Harper DO 12/20/2020 16:21:49 Negra Lara, CT(ASCP) Gross Description A. ??Thyroid, left lobe, ultrasound guided fine needle aspiration: ??3 Pap stained smear(s) and 3 Diff-Quik stained smear(s). ??1 ThinPrep prepared from needle rinse tube. ?? B. ??Thyroid, right lobe, ultrasound guided fine needle aspiration: 5 Pap stained smear(s) and 5 Diff-Quik stained smear(s). ??1 ThinPrep prepared from needle rinse tube. ??Aspirated by clinician. ??(cy) Clinical Diagnosis and History The patient is a 80 year old woman with thyroid nodules. Immediate Evaluation A. ??Thyroid, left lobe, ultrasound guided fine needle aspiration: ?? Evaluation Episode 1 Overall Adequacy: Satisfactory for interpretation Total Evaluation Episodes: 1 Preliminary Diagnosis: negative for malignancy B. ??Thyroid, right lobe, ultrasound guided fine needle aspiration: Evaluation Episode 1 Overall Adequacy: Satisfactory for interpretation Total Evaluation Episodes: 1 Preliminary Diagnosis: negative for malignancy Eldon Harper D.O. 12/19/2020 REPORT IMAGES AND SCANNED DOCUMENTS, IF INCLUDED, ONLY VIEWABLE IN PDF VERSION OF REPORT The performance characteristics of some immunohistochemical stains, in-situ hybridization and fluorescence in-situ hybridization tests and immunophenotyping by flow cytometry cited in this report (if any) were determined by the Surgical Pathology and Flow Cytometry Departments at [facility] as part of an ongoing quality rn program and in compliance with federally mandated regulations drawn from the Clinical Laboratory Improvement Act of 1988 (CLIA '88). ??Some of these tests rely on the use of analyte specific reagents and are subject to specific labeling requirements by the US Food and Drug Administration. ??Such diagnostic tests may only be performed in a facility that is certified by the Department of Health and Human Services as a high complexity laboratory under CLIA '88. ??The FDA has determined that such clearance or approval is not necessary. ??This test is used for clinical purposes. ??It should not be regarded as investigational or for research. ??Nevertheless, federal rules concerning the medical use of analyte specific reagents require that the following disclaimer be attached to the report: ??This test was developed and its performance characteristics determined by the Surgical Pathology and Flow Cytometry Departments of [facility]. ??It has not been cleared or approved by the U. S. Food and Drug Administration. Jermaine Martinez MD LAB CYTOLOGY ORDERABLES Fi nal Result documented in this encounter Visit Diagnoses Not on filedocumented in this encounter Care Teams Director Of Oncology Relationship Specialty Start Date End Date Ryann Galdamez PA PCP - General Astronautical Engineer 07/16/20 04/01/21 documented as of this encounter
--- OUTSIDE RECORDS SUMMARY | 2024-03-13 01:13 | XMS_ITS | Encounter Summary ---
Author Organization [facility] Address [address] [place] [address] Care Team Providers Care Dental Instructor Name Role Phone Ryann Galdamez Primary Care Provider [phone]- [phone] Reason for Visit * Reason Comments Follow-up Encounter Details Date Type Department Care Team (Late st Contact Info) Description 09/18/2020 1:30 PM CDT Office Visit [facility] Family Medicine [address] [place] [address] Ryann Galdamez PA [facility] [place] [address] Anxiety (Primary Dx); Obesity (BMI 30-39.9); Dizziness Social History Tobacco Use Types Packs/Day Years [...] file 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 Gender Identity Not on file Sexual Orientation Not on file documented as of this encounter Last Filed Vital Signs Vital Sign Reading Time Taken Comments Blood Pressure 98/70 09/18/2020 1:33 PM CDT Pulse 63 09/18/2020 1:33 PM CDT Temperature 36.7 ??C (98.1 ??F) 09/18/2020 1:33 PM CD T Respiratory Rate - - Oxygen Saturation 96% 09/18/2020 1:33 PM CDT Inhaled Oxygen Concentration - - Weight 93.4 kg (205 lb 12.8 oz) 09/18/2020 1:33 PM CDT Height 157.5 cm (5' 2.01 ) 09/18/2020 1:33 PM CD T Body Mass Index 37.63 09/18/2020 1:33 PM CDT documented in this encounter Ordered Prescriptions Prescription Sig Dispense Quantity Refills Last Filled Start Date End Date ALPRAZolam (XANAX) 0.25 mg tablet Take 1 tablet (0.25 mg total) by mouth daily as needed for anxiety 30 tablet 09/18/2020 1 zolpidem (AMBIEN) 5 mg tabletIndications: Sleep-Onset Insomnia Take 1 tablet (5 mg total) by mouth nightly as needed for sleep 30 tablet 09/18/2020 1 losartan (COZAAR) 25 mg tablet Take 1 tablet (25 mg total) by mouth daily 30 tablet 3 09/18/2020 1 budesonide (RHINOCORT AQUA) 32 mcg/actuation nasal spray Administer 2 sprays into each nostril daily 1 Bottle 1 09/18/2020 1 cefuroxime (CEFTIN) 500 mg tablet Take 1 tablet (500 mg total) by mouth 2 (two) times a day for 7 days 14 tablet 09/18/2020 1 documented in this encounter Progress Notes * Ryann Ayala PA - 09/18/2020 1:30 PM CDT Images from the original note were not included. Chief Complaint Follow-up HPI Here for several concerns. Feeling woozy at times. bp running 140/70s before meds, after meds will be 110/70s, initially aftermeds is having a decrease in bp. Not noticing palpitations. Cardiac cath last week, no change in meds, no blockages per patient report. sleep pattern is irregular, uses cpap No bleeding or bruising Does have ear congestion, not dizzy when looking up or turning head She notes that she is currently taking Losartan 25mg 2 tabs every day, not 50mg bid. She also notes that she is stressed and anxious, worried about marilyn who has stage 4 prostate cancerwith metastasis. She notes that he is getting weaker, thinking they're getting closer to pursuing hospice but not wanting to call them yet. She and his kids are managing his care at home for the timebeing. Allergies as of 09/18/2020 - Reviewed 09/18/2020 Allergen Reaction Noted ??? Amlodipine Shortness of breath 07/21/2019 ??? Prasanth inhibitors Cough ??? Citalopram ??? Lisinopril Outpatient Encounter Medications as of 09/18/2020 Medication Sig Dispense Refill ??? acetaminophen (TYLENOL) 500 mg tablet Take 1,000 mg by mouth as needed for pain ??? ALPRAZolam (XANAX) 0.25 mg tablet Take 1 tablet (0.25 mg total) by mouth daily as needed for anxiety 30 tablet 0 ??? apixaban (ELIQUIS) 5 mg tablet Take 1 tablet (5 mg total) by mouth 2 (two) times a day 180 tablet 0 ??? aspirin 81 mg enteric coated tablet Take 1 tablet (81 mg total) by mouth daily 30 tablet 11 ??? buPROPion XL (WELLBUTRIN XL) 150 mg [...] tablet (40 mg total) by mouth daily (Patient taking differently: Take 20 mg by mouth 2 (two) times a day ) 30 tablet 11 ??? isosorbide mononitrate ER [...] MOUTH EVERY DAY 90 tablet 3 ??? SITagliptin (JANUVIA) 25 mg tablet Take 1 tablet (25 mg total) by mouth daily 30 tablet 3 ??? [DISCONTINUED] ALPRAZolam (XANAX) 0.25 mg tablet as needed ??? [DISCONTINUED] losartan (COZAAR) 25 mg tablet Take 50 mg by mouth 2 (two) times a day ??? [DISCONTINUED] zolpidem (AMBIEN) 5 mg tablet Take 5 mg by mouth nightly at bedtime. ??? budesonide (RHINOCORT AQUA) 32 mcg/actuation nasal spray Administer 2 sprays into each nostril daily 1 Bottle 1 ??? cefuroxime (CEFTIN) 500 mg tablet Take 1 tablet (500 mg total) by mouth 2 (two) times a day for7 days 14 tablet 0 ??? losartan (COZAAR) 25 mg tablet Take 1 tablet (25 mg total) by mouth daily 30 tablet 3 ??? zolpidem (AMBIEN) 5 mg tablet Take 1 tablet (5 mg total) by mouth nightly as needed for sleep 30 tablet 0 ??? [DISCONTINUED] metFORMIN XR (GLUCOPHAGE XR) 500 mg 24 hr tablet Take 1,000 mg by mouth nightly No facility-administered encounter medications on file as of 09/18/2020. Review of Systems Constitutional: Negative for fatigue, fever and unexpected weight change. HENT: Negative for congestion. Respiratory: Negative for cough, chest tightness and shortness of breath. Cardiovascular: Negative for chest pain and palpitations. Gastrointestinal: Negative for abdominal pain. Genitourinary: Negative for difficulty urinating and dysuria. Musculoskeletal: Negative for arthralgias and back pain. Skin: Negative for color change. Neurological: Positive for dizziness. Hematological: Does not bruise/bleed easily. Psychiatric/Behavioral: Negative for confusion. The patient is nervous/anxious. Vitals: 09/18/20 1333 BP: 98/70 BP Location: Left arm Patient Position: Sitting Pulse: 63 Temp: 36.7 ??C (98.1 ??F) SpO2: 96% Weight: 93.4 kg (205 lb 12.8 oz) Height: 157.5 cm (5' 2.01 ) Physical Exam Vitals and nursing note reviewed. Constitutional: General: She is not in acute distress. Appearance: Normal appearance. She is not ill-appearing, toxic-appearing or diaphoretic. HENT: Head: Normocephalic and atraumatic. Right Ear: Tympanic membrane, ear canal and external ear normal. Left Ear: Tympanic membrane, ear canal and external ear normal. Eyes: Extraocular Movements: Extraocular movements intact. [...] Content: Thought content normal. Judgment: Judgment normal. Assessment/Plan Diagnoses and all orders for this visit: Anxiety (F41.9) (Primary) Assessment & Plan: Refill xanax prn. We discussed potentially increasing pending the coming weeks/months with 's situation. Obesity (BMI 30-39.9) (E66.9) Assessment & Plan: Obesity is unchanged. Discussed the patient's BMI. The BMI is above average. BMI management plan is completed. BMI Follow-up includes: nutrition counseling, exercise counseling and education provided. Dizziness (R42) Assessment & Plan: Decrease losartan from 50mg daily to 25mg daily. She will continue to monitor bp and call office ifrunning >130/80. We discussed bp contributing likely however eustachian tube dysfunction also likely the cause due to nasal congestion. Will start on flonase and antibiotic. She will call in the next week if not improving, sooner if worsening so further workup can be initiated. Other orders - cefuroxime (CEFTIN) 500 mg tablet; Take 1 tablet (500 mg total) by mouth 2 (two) times a day for 7 days - budesonide (RHINOCORT AQUA) 32 mcg/actuation nasal spray; Administer 2 sprays into each nostril daily - losartan (COZAAR) 25 mg tablet; Take 1 tablet (25 mg total) by mouth daily - zolpidem (AMBIEN) 5 mg tablet; Take 1 tablet (5 mg total) by mouth nightly as needed for sleep - ALPRAZolam (XANAX) 0.25 mg tablet; Take 1 tablet (0.25 mg total) by mouth daily as needed for anxiety Orders Placed This Encounter ??? cefuroxime (CEFTIN) 500 mg tablet Sig: Take 1 tablet (500 mg total) by mouth 2 (two) times a day for 7 days Dispense: 14 tablet Refill: 0 ??? budesonide (RHINOCORT AQUA) 32 mcg/actuation nasal spray Sig: Administer 2 sprays into each nostril daily Dispense: 1 Bottle Refill: 1 ??? losartan (COZAAR) 25 mg tablet Sig: Take 1 tablet (25 mg total) by mouth daily Dispense: 30 tablet Refill: 3 ??? zolpidem (AMBIEN) 5 mg tablet Sig: Take 1 tablet (5 mg total) by mouth nightly as needed for sleep Dispense: 30 tablet Refill: 0 ??? ALPRAZolam (XANAX) 0.25 mg tablet Sig: Take 1 tablet (0.25 mg total) by mouth daily as needed for anxiety Dispense: 30 tablet Refill: 0 RACHID Jenkins Cosigned by Cuba Larsen MD at 09/18/2020 4:13 PM CDT documented in this encounter Miscellaneous Notes * Assessment & Plan Note - Ryann Ayala PA - 09/18/2020 3:37 PM CDT Associated Problem(s): Dizziness (Resolved 02/13/2022) Decrease losartan from 50mg daily to 25mg daily. She will continue to monitor bp and call office ifrunning >130/80. We discussed bp contributing likely however eustachian tube dysfunction also likely the cause due to nasal congestion. Will start on flonase and antibiotic. She will call in the next week if not improving, sooner if worsening so further workup can be initiated. * Assessment & Plan Note - Ryann Ayala PA - 09/18/2020 3:37 PM CDT Associated Problem(s): Anxiety (Resolved 03/03/2023) Refill xanax prn. We discussed potentially increasing pending the coming weeks/months with 's situation. * Assessment & Plan Note - Ingrid Milligan MA - 09/18/2020 1:36 PM CDTAssociated Problem(s): BMI 30.0-30.9,adult (Resolved 10/09/2022) Obesity is unchanged. Discussed the patient's BMI. The BMI is above average. BMI management plan is completed. BMI Follow-up includes: nutrition counseling, exercise counseling and education provided. documented in this encounter Plan of Treatment Not on file documented as of this encounter Visit Diagnoses Diagnosis Anxiety- Primary Anxiety state, unspecified Obesity (BMI 30-39.9) Dizziness Dizziness and giddiness documented in this encounter Discontinued Medications Medication Sig Discontinue Reason Start Date End Da te metFORMIN XR (GLUCOPHAGE XR) 500 mg 24 hr tablet Take 1,000 mg by mouth nightly 09/18/2020 losartan (COZAAR) 25 mg tablet Take 50 mg by mouth 2 (two) times a day 04/06/2020 09/18/2020 zolpidem (AMBIEN) 5 mg tablet Take 5 mg by mouth nightly at bedtime. 06/30/2019 09/18/2020 ALPRAZolam (XANAX) 0.25 mg tablet as needed Reorder 03/14/2020 09/18/2020 documented as of this encounter Historical Medications * This list may reflect changes made after this encounter. metFORMIN (GLUCOPHAGE) 1,000 mg tablet Take 1,000 mg by mouth daily 09/17/2020 11/22/2020 added in this encounter Care Teams Dental Instructor Relationship Specialty Start Date End Date Ryann Galdamez PA PCP - General Well Puller Head 07/16/20 04/01/21 documented as of this encounter
--- OUTSIDE RECORDS SUMMARY | 2024-03-13 01:13 | XMS_ITS | Encounter Summary ---
Author Organization [facility] Address [address] [place] [address] Phone Care Team Providers Care Branch Specialist Name Role Phone Ryann Galdamez Primary Care Provider [phone]- [phone] Reason for Referral * Consultation (Routine) - Closed Specialty Diagnoses / Procedures Referred By Contac t Referred To Contact Cardiology Diagnoses Acute on chronic systolic CHF (congestive heart failure) (CMS/HCC) (HCC) Atrial fibrillation, unspecified type (HCC) Ryann Galdamez PA Phone: tel: fax: [facility] (All Locations) Referral ID Status Reason Start Date Expiration Date V isits Requested Visits Authorized [id number] Closed Specialty Services Required 10/31/2020 11/30/2021 6 6 Question Answer Please select the performing region: [facility] (All Locations) [[id number]] # of visits: 1 Reason for Visit * Reason Comments Follow-up * Consultation (Routine) - Closed Specialty Diagnoses / Procedures Referred By Contac t Referred To Contact Cardiology Diagnoses Acute on chronic systolic CHF (congestive heart failure) (CMS/HCC) (HCC) Atrial fibrillation, unspecified type (HCC) Ryann Galdamez PA Phone: tel: fax: [facility] (All Locations) Referral ID Status Reason Start Date Expiration Date V isits Requested Visits Authorized [id number] Closed Specialty Services Required 10/31/2020 11/30/2021 6 6 Encounter Details Date Type Department Care Team (Late st Contact Info) Description 11/16/2020 11:00 AM CDT Office Visit [facility] Cardiology [address] [place] [address] Racquel Abebe, HYDRAULIC REPAIRER [address] [place] [id number] Acute on chronic systolic CHF (congestive heart failure) (CMS/HCC) (HCC) (Primary Dx); Atrial fibrillation, unspecified type (HCC); Hypertension, unspecified type; Dyspnea, unspecified type Social History Tobacco Use [...] on file 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 Gender Identity Not on file Sexual Orientation Not on file documented as of this encounter Last Filed Vital Signs Vital Sign Reading Time Taken Comments Blood Pressure 115/85 11/16/2020 11:00 AM CDT Pulse 88 11/16/2020 11:00 AM CDT Temperature - - Respiratory Rate - - Oxygen Saturation 98% 11/16/2020 11:00 AM CDT Inhaled Oxygen Concentration - - Weight 85.3 kg (188 lb) 11/16/2020 11:00 AM CDT Height 157.5 cm (5' 2.01 ) 11/16/2020 11:00 AM C DT Body Mass Index 34.37 11/16/2020 11:00 AM CDT documented in this encounter Patient Instructions * Patient Instructions* Racquel Abebe NP - 11/16/2020 11:00 AM CDT OK to try stopping isosorbide (imdur) If you become more SOB after stopping, please let us know and we can resume. Continue all other medications as is. documented in this encounter Progress Notes * Racquel Abebe NP - 11/16/2020 11:00 AM CDT Cardiology Return Office Visit Primary care Physician Ryann Ayala PA [address] [place] [id number] Patient Name: Prema Pearce Date of : 1940 Date of Visit: 11/16/2020 PRINCIPAL AND SECONDARY DIAGNOSES: 1. Persistent atrial [...] stenosis, moderate 4. Moderate CAD on 08/2020 [facility] 5. Submassive pulmonary embolism 05/2019, provoked, occurred 1 week after left distal femoral replacement for an open fracture 6. Right lower extremity DVT 05/2019 7. Hypertension 8. Diabetes mellitus type II, insulin dependent 9. Obstructive sleep apnea, on CPAP 10. Hypothyroidism 11. Left adrenal nodule Prema Pearce is a 80 y.o. female who presents today at the [facility] in [place] for follow-up on her exertional dyspnea. Her construction helper is Dr. Cathleen Walker. At her last visit she was referred for PET/CT myocardial perfusion imaging and echocardiogram for evaluation of exertional dyspnea. Echocardiogram showed normal LV function EF 66%, moderate , and upper normal PASP. PET-CT was positive for small, moderate size ischemia in inferolateral wall. She was started on Imdur 15 mg daily and referred for left heart catheterization. This showed moderate CAD however elevated LVEDP. Lasix was increased to 60 mg daily. Unfortunately since last saw her, her who was on hospice for prostate cancer inseptember. She has been struggling emotionally/psychologically as result, with very uncontrolled anxiety and depression. Blood sugars have been running high as well. She has been following closely with her PCP who is adjusting her medications. She is also planned for a thyroid ultrasound due to concern for nodule. Recent thyroid panel normal. In regards to her exertional dyspnea, she thinks this is improved however admits it is somewhat hard to assess since she has been doing less activity since her . She does continue to walkher dog thinks this is slightly easier. She did not notice any difference with the addition of Imdur, but did see some improvement following increase in Lasix dose. Currently she denies any bothersome or limiting dyspnea. No orthopnea, PND, or lower extremity edema. She denies any chest pain. Blood pressures have been well controlled, 120s/90s-100s before and 110s/80s after medications. Losartan and amlodipine were stopped a few months ago due to low blood pressures. She denies any recentlightheadedness or dizziness. She has longstanding persistent atrial fibrillation. She used to since irregularity and feel palpitations, but she does not notice this anymore. She does not currently attribute any symptoms to her atrial fibrillation. CURRENT MEDICATIONS: Current Outpatient Medications: ??? acetaminophen (TYLENOL) 500 mg tablet ??? ALPRAZolam (XANAX) 0.25 mg tablet ??? aspirin 81 mg enteric coated tablet ??? buPROPion XL (WELLBUTRIN XL) 150 mg 24 hr tablet ??? CALCIUM CARBONATE ORAL ??? carvediloL (COREG) 25 mg tablet ??? dilTIAZem CD 120 mg 24 hr capsule ??? Eliquis 5 mg tablet ??? furosemide (LASIX) 20 mg tablet ??? furosemide (LASIX) 40 mg tablet ??? glipiZIDE (GLUCOTROL) 5 mg tablet ??? metFORMIN (GLUCOPHAGE) 1,000 mg tablet ??? potassium chloride ER (KLOR-CON) 20 mEq CR tablet ??? rosuvastatin (CRESTOR) 20 mg tablet ??? Synthroid 50 mcg tablet ??? zolpidem (AMBIEN) 10 mg tablet ??? budesonide (RHINOCORT AQUA) 32 mcg/actuation nasal spray PHYSICAL EXAMINATION: Vitals: 11/16/20 1100 BP: 115/85 Pulse: 88 SpO2: 98% Weight: 85.3 kg (188 lb) Height: 157.5 cm (5' 2.01 ) GENERAL: Alert and oriented, well-nourished, in [...] No cyanosis, pallor, clubbing, or rashes. LABORATORY/DIAGNOSTICS: Lab Results Component Value Date CHOL 106 08/20/2020 LDLCALC 17 06/08/2019 HDL 36 (L) 08/20/2020 TRIG 174 (H) 08/20/2020 Lab Results Component Value Date NPROBNP 6,714 (H) 06/08/2019 IMPRESSION AND PLAN: 1. 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 She appears euvolemic and LVEF normal on recent echo. Her activity levels have been lower recently following the of her which could be limiting assessment, however exertional dyspnea is seemingly improved with higher dose Lasix. Continue 60 mg daily. Check BMP (ordered in September but not completed). 2. Aortic stenosis. Moderate on recent echo. CHF management and clinical monitoring. 3. Persistent atrial fibrillation. She is rate controlled on carvedilol and diltiazem. Exertional dyspnea improved and she has no apparent symptoms from her Afib at this time. Continue Eliquis anticoagulation. 4. Coronary artery disease. Moderate disease on recent LHC. Unsure what to make of recent PET-CT abnormalities, possibly microvascular disease? She reports no symptomatic improvement with Imdur initiation, and is interested in simplifying medication regimen. Advised she may trial discontinuation ofImdur with close symptom monitoring. Continue aspirin, statin. LDL is at goal. 5. Hypertension. Blood pressure is well controlled. No changes. Racquel Abebe, [facility]- CC: Ryann Ayala PA [address] [facility] [address] Cosigned by Cathleen Walker MD at 11/21/2020 2:09 PM CDT documented in this encounter Plan of Treatment Scheduled Referrals Name Type Priority Associated Diagnoses Orde r Schedule Ambulatory referral to Cardiology Outpatient Referral Routine Acute on chronic systolic CHF (congestive heart failure) (CMS/HCC) Atrial fibrillation, unspecified type (CMS/HCC) Expected: 11/14/2020 (Approximate), Expires: 10/31/2021 documented as of this encounter Procedures Procedure Name Priority Date/Time Associated Diagnosis Comments BASIC METABOLIC PANEL Routine 11/29/2020 11:33 AM CDT Acute on chronic systolic CHF (congestive heart failure) (CMS/HCC) (HCC) documented in this encounter Results * (ABNORMAL) Basic metabolic panel (11/29/2020 11:33 AM CDT) Glucose 173(H) 65 - 99 mg/dL [facility] Comment: ? Fasting reference interval For someone without known diabetes, a glucose value >125 mg/dL indicates that they may have diabetes and this should be confirmed with a follow-up test. BUN 28(H) 7 - 25 mg/dL [facility] Creatinine 1.00(H) 0.60 - 0.93 mg/dL [facility] Comment: For patients >49 years of age, the reference limit for Creatinine is approximately 13% higher for people identified as -Syrian. eGFR NON-AFR. INDONESIAN 54(L) > OR = 60 mL/min/1. 73m2 [facility] EGFR 62 > OR = 60 mL/min/1. 73m2 [facility] BUN/creat ratio 28(H) 6 - 22 (calc) [facility] Sodium 139 135 - 146 mmol/L [facility] Potassium, pl 3.8 3.5 - 5.3 mmol/L [facility] Chloride 100 98 - 110 mmol/L [facility] CO2 29 20 - 32 mmol/L [facility] Calcium 9.9 8.6 - 10.4 mg/dL [facility] Blood specimen (specimen) 11/29/2020 11:33 AM CDT 11/29/2020 11:34 AM CDT us Racquel Abebe HYDRAULIC REPAIRER LAB BLOOD ORDERABLES Final R esult [facility] [address] [place] [address] documented in this encounter Visit Diagnoses Diagnosis Acute on chronic systolic CHF (congestive heart failure) (CMS/HCC) (HCC)- Primary Atrial fibrillation, unspecified type (HCC) Hypertension, unspecified type Dyspnea, unspecified type documented in this encounter Discontinued Medications Medication Sig Discontinue Reason Start Date End Da te isosorbide mononitrate ER (IMDUR) 30 mg 24 hr tablet Take 1 tablet (30 mg total) by mouth daily 08/29/2020 11/16/2020 documented as of this encounter Care Teams Branch Specialist Relationship Specialty Start Date End Date Ryann Galdamez PA PCP - General Funeral Home Attendant 07/16/20 04/01/21 documented as of this encounter
--- OUTSIDE RECORDS SUMMARY | 2024-03-13 01:13 | XMS_ITS | Encounter Summary ---
Author Organization [facility] Address [address] [place] [address] Phone Care Team Providers Care Paramedical Aide Name Role Phone Ryann Galdamez Primary Care Provider [phone]- [phone] Encounter Details Date Type Department Care Team (Late st Contact Info) Description 09/03/2020 Telephone [facility] Cardiology [address] [place] [address] [place] [address] Cathleen Walker MD [address] [facility] [address] [place] [address] Social History Tobacco Use Types [...] file 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 Gender Identity Not on file Sexual Orientation Not on file documented as of this encounter Miscellaneous Notes * Telephone Encounter - Paulina Bright RN - 09/03/2020 2:47 PM CDT Spoke w/ pt See other note * Telephone Encounter - Alise Anderson - 09/03/2020 2:39 PM CDT ABE RETURNING CALL FROM TODAY documented in this encounter Plan of Treatment Not on file documented as of this encounter Visit Diagnoses Not on filedocumented in this encounter Care Teams Paramedical Aide Relationship Specialty Start Date End Date Ryann Galdamez PA PCP - General Wallpaper Remover Steam 07/16/20 04/01/21 documented as of this encounter
--- OUTSIDE RECORDS SUMMARY | 2024-03-13 01:13 | XMS_ITS | Encounter Summary ---
Author Organization [facility] Address [address] [place] [address] Phone Care Team Providers Care Manager Utilities Name Role Phone Ryann Galdamez Primary Care Provider [phone]- [phone] Reason for Visit * Cardiology (Routine) - Closed Specialty Diagnoses / Procedures Referred By Contac t Referred To Contact Diagnoses Dyspnea, unspecified type Chronic heart failure with preserved ejection fraction (CMS/HCC) (HCC) Procedures Transthoracic Echo Complete W Doppler/CF Cassandra Fish MD Phone: tel: fax: [facility] [address] [place] [address] Referral ID Status Reason Start Date Expiration Date Visits Re quested Visits Authorized [id number] Closed 08/06/2020 09/05/2021 1 1 Encounter Details Date Type Department Care Team (Late st Contact Info) Description 08/31/2020 10:30 AM CDT Ancillary Procedure [facility] [address] [place] [address] Cassandra Fish MD [address] [facility] [address] [place] [address] Dyspnea, unspecified type; Chronic heart failure with preserved ejection fraction (CMS/HCC) Social History Tobacco Use Types Packs/Day Years Used Date Smoking Tobacco: Never Smokeless Tobacco: Never Alcohol Use Standard Drinks/Week Comments Yes 0 (1 standard drink = 0.6 oz pur e alcohol) 1/mo PHQ-2 Answer Date Recorded PHQ-2 Total Score 6 08/21/2020 Comments No Sex and Gender Information Value Date Recorded Sex Assigned at Not on file 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 Gender Identity Not on file Sexual Orientation Not on file documented as of this encounter Plan of Treatment Not on file documented as of this encounter Procedures Procedure Name Priority Date/Time Associated Diagnosis Comments TRANSTHORACIC ECHO (TTE) COMPLETE W DOPPLER/CF W CONTRAST Routine 08/31/2020 11:30 AM CDT Dyspnea, unspecified type Chronic heart failure with preserved ejection fraction (CMS/HCC) documented in this encounter Results * TRANSTHORACIC ECHO (TTE) COMPLETE W DOPPLER/CF W CONTRAST (08/31/2020 11:30 AM CDT) Anatomical Region Laterality Modality Ultrasound 08/31/2020 10:3 0 AM CDT Narrative 08/31/2020 1:31 PM CDT Patient name: Prema Pearce Date of test: 08/31/2020 Type of test: TTE w/Doppler [facility] #: [id number] Date of : 1940 (F) Business Practices Officer: Ingrid Jones [facility] Referring Physician: CASSANDRA FISH MD Contrast Agent: 0.4 ml Optison Administered, (2.6 ml wasted). Contrast Administered by: Tami Bush RN Supervised/Interpreted by: Nathen Ortiz MD Diagnosis: Location: [facility] Reason for test: Dyspnea MV Structure: Normal, ?MV Motion: Normal, ?? Mitral Annulus: calcified AV Structure: tricuspid and is moderately thickened, ?? AV Motion: restricted Aotic root: Normal, ?TM: Normal, ?? PV: Normal Valvular Vegetations: none seen, ?Mass/Thrombi: none seen RA: Normal Measurements: ?M-Mode ?Normal ? Aotic Root: ? <3.8 ? LA: ? <3.8 ? RV: ? <2.8 ? LV(ED): ? <5.7 ? LV(ES): ? Variable ?2D Linear Normal ? Aotic Root: 2.9 cm ?<3.6 ? Ao Indexed: 1.5 cm/M2 <2.0 ? LA: ? <3.8 ? RV: ? 3.6 cm ?<4.2 ? LV(ED): ? 4.5 cm ?<5.3 ? LV(ES): ? 3.0 cm ?<3.5 ?2D Vol. ?? Normal ?Indexed ?? Indexed Normal RA: ? 60.0 ml ? 31.3 ml/M2 ?9-33 ? LA: ? 123.0 ml ?64.1 ml/M2 ?16-34 ? RV: ? <11.6 ? LV(ED): ? 87.0 ml ?? 46-106 ?45.3 ml/M2 ?<62 ? LV(ES): ? 30.0 ml ?? 14-42 ? 15.6 ml/M2 ?<25 ?3D Vol. ? Indexed Normal LV(ED): ?<62 ? LV(ES): ?<24 ? LV EF: 66 % ?? (Normal: >=54%) ?? LV Septum: 0.8 cm ?(Normal: <0.9 cm) Wall Motion Scoring (1=Normal 2=Hypo 3=Akinetic 4=Dyskin./Aneurysm 0=Not visualized) Parasternal [place]:MAS=1 BAS=1 MIL=1 NIGHAT=1 Parasternal Short Crossroads:MAS=1 MIS=1 CA=1 MIL=1 MAL=1 MA=1 Apical 4 Chambers:=1 MIS=1 BIS=1 BAL=1 MAL=1 AL=1 AC=1 Apical 2 Chambers:AI=1 CA=1 BI=1 BA=1 MA=1 AA=1 AC=1 LV Global Longitudinal Strain: -10.9% ??(Normal <-17%) RV Global Longitudinal Strain: LV Function: Normal LV Ejection Fraction, ??(EF=54-74%) RV Function: Normal Septal Motion: Normal Pericardial Effusion: none seen Atrial Septum: Normal DOPPLER/COLOR FLOW DOPPLER RESULTS: Diastolic Function: Normal Tricuspid Valve: mild TV regurgitation Pulmonic Valve: normal PV AV Regurgitation: No AR seen AV Stenosis: moderate AV Area: 1.2 cm2 AV Pressure Gradient (mmHg): Mean: 16, Peak:27 MV Regurgitation: Mild MR MV Stenosis: no MS MV Area: ??cm2 MV Pressure Gradient (mmHg): Mean: 0 MV ERO: ??cm Regurg. Vol.: ??ml/beat Regurg. Frac.: ??% PA Pressure: 35 mmHg DOPPLER/COLOR FOLOW DOPPLER COMMENTS: No AR seen, Mild MR, moderate , no MS, mild TV regurgitation, normal PV. Diastolic function: Normal Ao TVI= 20 /57; ??D.I.=0.35; CONTRAST: 0.4 ml Optison Administered, (2.6 ml wasted). SUMMARY: ??Atrial Fibrillation; Calcific aortic valve disease; Moderate Aortic Stenosis; ??LA is markedly dilated. Calcified mitral annulus; ??Small LV cavity size with normal to hyperdynamic LV systolic function and EF 66 %. ??Mild Tricuspid Regurgitation with upper-normal estimated Pulmonary Artery Systolic Pressure. ??As compared to previous study (08/18/2019 ), there are no appreciable changes. Confirmed on ??08/31/2020 - 13:31:43 by Nathen Ortiz MD By signing this report, the attending arbor press operator certifies that he or she has personally supervised and interpreted the echocardiogram and has reviewed and or edited and agrees with the written comments contained within the report. Procedure Note Nathen Ortiz MD - 08/31/2020 Patient name: Prema Pearce Date of test: 08/31/2020 Type of test: TTE /[facility] #: [id number] Date of : 1940 (F) Business Practices Officer: Ingrid Jones [facility] Referring Physician: CASSANDRA FISH MD Contrast Agent: 0.4 ml Optison Administered, (2.6 ml wasted). Contrast Administered by: Tami Bush RN Supervised/Interpreted by: Nathen Ortiz MD Diagnosis: Location: [facility] Reason for test: Dyspnea MV Structure: Normal, MV Motion: Normal, Mitral Annulus: calcified AV Structure: tricuspid and is moderately thickened, AV Motion: restricted Aotic root: Normal, TM: Normal, PV: Normal Valvular Vegetations: none seen, Mass/Thrombi: none seen RA: Normal Measurements: M-Mode Normal Aotic Root: <3.8 LA: <3.8 RV: <2.8 LV(ED): <5.7 LV(ES): Variable 2D Linear Normal Aotic Root: 2.9 cm <3.6 Ao Indexed: 1.5 cm/M2 <2.0 LA: <3.8 RV: 3.6 cm <4.2 LV(ED): 4.5 cm <5.3 LV(ES): 3.0 cm <3.5 2D Vol. Normal Indexed Indexed Normal RA: 60.0 ml 31.3 ml/M2 9-33 LA: 123.0 ml 64.1 ml/M2 16-34 RV: <11.6 LV(ED): 87.0 ml 46-106 45.3 ml/M2 <62 LV(ES): 30.0 ml 14-42 15.6 ml/M2 <25 3D Vol. Indexed Normal LV(ED): <62 LV(ES): <24 LV EF: 66 % (Normal: >=54%) LV Septum: 0.8 cm (Normal: <0.9 cm) Wall Motion Scoring (1=Normal 2=Hypo 3=Akinetic 4=Dyskin./Aneurysm 0=Not visualized) Parasternal [place]roads:MAS=1 BAS=1 MIL=1 NIGHAT=1 Parasternal Short Crossroads:MAS=1 MIS=1 CA=1 MIL=1 MAL=1 MA=1 Apical 4 Chambers:=1 MIS=1 BIS=1 BAL=1 MAL=1 AL=1 AC=1 Apical 2 Chambers:AI=1 CA=1 BI=1 BA=1 MA=1 AA=1 AC=1 LV Global Longitudinal Strain: -10.9% (Normal <-17%) RV Global Longitudinal Strain: LV Function: Normal LV Ejection Fraction, (EF=54-74%) RV Function: Normal Septal Motion: Normal Pericardial Effusion: none seen Atrial Septum: Normal DOPPLER/COLOR FLOW DOPPLER RESULTS: Diastolic Function: Normal Tricuspid Valve: mild TV regurgitation Pulmonic Valve: normal PV AV Regurgitation: No AR seen AV Stenosis: moderate AV Area: 1.2 cm2 AV Pressure Gradient (mmHg): Mean: 16, Peak:27 MV Regurgitation: Mild MR MV Stenosis: no MS MV Area: cm2 MV Pressure Gradient (mmHg): Mean: 0 MV ERO: cm Regurg. Vol.: ml/beat Regurg. Frac.: % PA Pressure: 35 mmHg DOPPLER/COLOR FOLOW DOPPLER COMMENTS: No AR seen, Mild MR, moderate , no MS, mild TV regurgitation, normal PV. Diastolic function: Normal Ao TVI= 20 /57; D.I.=0.35; CONTRAST: 0.4 ml Optison Administered, (2.6 ml wasted). SUMMARY: Atrial Fibrillation; Calcific aortic valve disease; Moderate Aortic Stenosis; LA is markedly dilated. Calcified mitral annulus; Small LV cavity size with normal to hyperdynamic LV systolic function and EF 66 %. Mild Tricuspid Regurgitation with upper-normal estimated Pulmonary Artery Systolic Pressure. As compared to previous study (08/18/2019 ), there are no appreciable changes. Confirmed on 08/31/2020 - 13:31:43 by Nathen Ortiz MD By signing this report, the attending arbor press operator certifies that he or she has personally supervised and interpreted the echocardiogram and has reviewed and or edited and agrees with the written comments contained within the report. Result [facility] Cassandra Mccormick MD CV ECHO PROCEDUR ES Final Result documented in this [...] intravenous, Once in imaging, contrast, Starting on Thu08/31/20 at 1045, For 1 dose, Intra-Procedure (CV) Contrast Given 08/31/2020 11:31 AM CDT 1 mL documented in this encounter Care Teams Manager Utilities Relationship Specialty Start Date End Date Ryann Galdamez PA PCP - General Mail Reader 07/16/20 04/01/21 documented as of this encounter
--- OUTSIDE RECORDS SUMMARY | 2024-03-13 01:13 | XMS_ITS | Encounter Summary ---
Author Organization [facility] Address [address] [place] [address] Phone Care Team Providers Care Steel Crane Operator Name Role Phone Ryann Galdamez Primary Care Provider [phone]- [phone] Encounter Details Date Type Department Care Team (Late st Contact Info) Description 09/11/2020 Telephone 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 * Telephone Encounter - Janet Doshi BS - 09/11/2020 11:13 AM CDT Aaron Pt calling to speak with nurse. She is to have cath done on . She has gotten any details yet. Please call to discuss. documented in this encounter Plan of Treatment Not on file documented as of this encounter Visit Diagnoses Not on filedocumented in this encounter Care Teams Steel Crane Operator Relationship Specialty Start Date End Date Ryann Galdamez PA PCP - General Technical Project Manager 07/16/20 04/01/21 documented as of this encounter
--- OUTSIDE RECORDS SUMMARY | 2024-03-13 01:13 | XMS_ITS | Encounter Summary ---
Author Organization [facility] Address [address] [place] [address] Care Team Providers Care Lithographic Proofer Apprentice Name Role Phone Ryann Galdamez Primary Care Provider [phone] Reason for Visit * Reason Comments Follow-up Encounter Details Date Type Department Care Team (Late st Contact Info) Description 12/27/2020 10:30 AM CDT Office Visit [facility] Family Medicine [address] [place] [address] Ryann Galdamez PA On license of [facility] [place], [place] [id number] Episode of recurrent major depressive disorder, unspecified depression episode severity (HCC) (Primary Dx); Anxiety; Type 2 diabetes mellitus without complication, without long-term current use of insulin (CMS/HCC) (HCC); Obesity (BMI 30-39.9); BMI 32.0-32.9,adult; Fatigue, unspecified type; Hypothyroidism, unspecified type; Vitamin D deficiency Social History Tobacco Use Types Packs/Day Years [...] on file Legal Sex Female 4:20 AM TREE GIR[employer] Gender Identity Not on file Sexual Orientation Not on file documented as of this encounter Last Filed Vital Signs Vital Sign Reading Time Taken Comments Blood Pressure 120/80 12/27/2020 10:36 AM CDT Pulse 67 12/27/2020 10:36 AM CDT Temperature 36.4 ??C (97.5 ??F) 12/27/2020 10:36 AM C DT Respiratory Rate - - Oxygen Saturation 97% 12/27/2020 10:36 AM CDT Inhaled Oxygen Concentration - - Weight 81.7 kg (180 lb 1.6 oz) 12/27/2020 10:36 AM CDT Height 157.5 cm (5' 2.01 ) 12/27/2020 10:36 AM C DT Body Mass Index 32.93 12/27/2020 10:36 AM CDT documented in this encounter Ordered Prescriptions Prescription Sig Dispense Quantity Refills Last Filled Start Date End Date ALPRAZolam (XANAX) 0.25 mg tablet Take 1 tablet (0.25 mg total) by mouth 3 (three) times a day as needed for anxiety 90 tablet 12/27/2020 1 sertraline (ZOLOFT) 100 mg tabletIndications: Episode of recurrent major depressive disorder, unspecified depression episode severity (HCC),Anxiety Take 1 tablet (100 mg total) by mouth daily 30 tablet 1 12/27/2020 1 documented in this encounter Progress Notes * Ryann Galdamez PA - 12/27/2020 10:30 AM CDT Images from the original note were not included. Chief Complaint Follow-up HPI Here for f/u anxiety, fatigue. Presents with son Tired with minimal exertion. Tearful often. Appetite has been decreased. Has been taking the xanax tid, seems to help her rest. Has found a new house, prepping to move in the next week. She and family have been going through her personal effects in attempt to move her quickly. Has had extra stress due to family dynamics/her daughters in law hoping to sell the house she's currently living in quickly. Saw cv several weeks ago, was told symptoms are not her heart. Has not had any shortness of breath or palpitations. Allergies as of 12/27/2020 - Reviewed 12/27/2020 Allergen Reaction Noted ??? Amlodipine Shortness of breath 07/21/2019 ??? Prasanth inhibitors Cough ??? Citalopram ??? Lisinopril Outpatient Encounter Medications as of 12/27/2020 Medication Sig Dispense Refill ??? acetaminophen (TYLENOL) [...] breakfast and lunch 60 tablet 3 ??? metFORMIN (GLUCOPHAGE) 500 mg tablet Take [...] MOUTH EVERY DAY 90 tablet 3 ??? Synthroid 50 mcg tablet Take 1 tablet (50 mcg total) by mouth daily 30 tablet 3 ??? zolpidem (AMBIEN) 10 mg tablet Take 10 mg by mouth nightly as needed ??? [DISCONTINUED] ALPRAZolam (XANAX) 0.25 mg tablet Take 1 tablet (0.25 mg total) by mouth daily as needed for anxiety 30 tablet 0 ??? [DISCONTINUED] sertraline (ZOLOFT) 50 mg tablet Take 1 tablet (50 mg total) by mouth daily 30 tablet 1 ??? sertraline (ZOLOFT) 100 mg tablet Take 1 tablet (100 mg total) by mouth daily 30 tablet 1 No facility-administered encounter medications on file as of 12/27/2020. Review of Systems Constitutional: Positive for fatigue. [...] for confusion. The patient is nervous/anxious. Vitals: 12/27/20 1036 BP: 120/80 BP Location: Right arm Patient Position: Sitting Pulse: 67 Temp: 36.4 ??C (97.5 ??F) SpO2: 97% Weight: 81.7 kg (180 lb 1.6 oz) Height: 157.5 cm (5' 2.01 ) [...] Behavior normal. Thought Content: Thought content normal. Comments: Tearful on and off Assessment/Plan Diagnoses and all orders for this visit: Episode of recurrent major depressive disorder, unspecified depression episode severity (HCC) (F33.9) (Primary) - sertraline (ZOLOFT) 100 mg tablet; Take 1 tablet (100 mg total) by mouth daily - Ambulatory referral to Psychology; Future Anxiety (F41.9) Assessment & Plan: Increase xanax to tid Increase zoloft Refer for counseling Orders: - sertraline (ZOLOFT) 100 mg tablet; Take 1 tablet (100 mg total) by mouth daily - Ambulatory referral to Psychology; Future Type 2 diabetes mellitus without complication, without long-term current use of insulin ([facility]) (HCC) (E11.9) Assessment & Plan: Fasting labs entered, will notify patient of results as available Continue medications same at this time Orders: - CBC with auto differential; Future - Comprehensive metabolic panel; Future - Hemoglobin A1c; Future Obesity (BMI 30-39.9) (E66.9) Assessment & Plan: Obesity is unchanged. Discussed the patient's BMI. The BMI is above average. BMI management plan is completed. BMI Follow-up includes: nutrition counseling, exercise counseling and education provided. BMI 32.0-32.9,adult (Z68.32) Assessment & Plan: Obesity is unchanged. Discussed the patient's BMI. The BMI is above average. BMI management plan is completed. BMI Follow-up includes: nutrition counseling, exercise counseling and education provided. Fatigue, unspecified type (R53.83) Assessment & Plan: Will monitor further with labs, will notify her of these results as available. Discussed and advised a holter monitor, which she declines at the current time. We discussed that further evaluation is needed given symptoms, and also to consider that the stressis physically exhausting and manifesting physically. Orders: - CBC with auto differential; Future - Comprehensive metabolic panel; Future - Hemoglobin A1c; Future - TSH; Future - T4, free; Future - Vitamin D 25 hydroxy; Future - Vitamin B12; Future - Urinalysis reflex to microscopic; Future Hypothyroidism, unspecified type (E03.9) Assessment & Plan: Fasting labs entered, will notify patient of results as available Orders: - TSH; Future - T4, free; Future Vitamin D deficiency (E55.9) - Vitamin D 25 hydroxy; Future Other orders - ALPRAZolam (XANAX) 0.25 mg tablet; Take 1 tablet (0.25 mg total) by mouth 3 (three) times a day as needed for anxiety Orders Placed This Encounter ??? CBC with auto differential Standing Status: Future Number of Occurrences: 1 Standing Expiration Date: 12/27/2021 ??? Comprehensive metabolic panel Standing Status: Future Number of Occurrences: 1 Standing Expiration Date: 12/27/2021 ??? Hemoglobin A1c Standing Status: Future Number of Occurrences: 1 Standing Expiration Date: 12/27/2021 ??? TSH Standing Status: Future Number of Occurrences: 1 Standing Expiration Date: 12/27/2021 ??? T4, free Standing Status: Future Number of Occurrences: 1 Standing Expiration Date: 12/27/2021 ??? Vitamin D 25 hydroxy Standing Status: Future Number of Occurrences: 1 Standing Expiration Date: 12/27/2021 ??? Vitamin B12 Standing Status: Future Number of Occurrences: 1 Standing Expiration Date: 12/27/2021 ??? Urinalysis reflex to microscopic Standing Status: Future Number of Occurrences: 1 Standing Expiration Date: 12/27/2021 Order Specific Question: Urine Collection Method Answer: Clean Catch ??? Ambulatory referral to Psychology Standing Status: Future Standing Expiration Date: 12/27/2021 Referral Priority: Routine Referral Type: Consultation Referral Reason: Specialty Services Required Referral Location: [facility] Referred to Provider: Froy Roper PSY.D. Number of Visits Requested: 1 ??? sertraline (ZOLOFT) 100 mg tablet Sig: Take 1 tablet (100 mg total) by mouth daily Dispense: 30 tablet Refill: 1 ??? ALPRAZolam (XANAX) 0.25 mg tablet Sig: Take 1 tablet (0.25 mg total) by mouth 3 (three) times a day as needed for anxiety Dispense: 90 tablet Refill: 0 Ryann A. Ayala, PA documented in this encounter Miscellaneous Notes * Assessment & Plan Note - Ryann Galdamez PA - 12/27/2020 12:53 PM CDT Associated Problem(s): Fatigue (Resolved 08/13/2022) Will monitor further with labs, will notify her of these results as available. Discussed and advised a holter monitor, which she declines at the current time. We discussed that further evaluation is needed given symptoms, and also to consider that the stressis physically exhausting and manifesting physically. * Assessment & Plan Note - Ryann Galdamez PA - 12/27/2020 12:53 PM CDT Associated Problem(s): Anxiety (Resolved 03/03/2023) Increase xanax to tid Increase zoloft Refer for counseling * Assessment & Plan Note - Ryann Galdamez PA - 12/27/2020 12:53 PM CDT Associated Problem(s): Type 2 diabetes mellitus without complications (CMS/HCC) (HCC) Fasting labs entered, will notify patient of results as available Continue medications same at this time * Assessment & Plan Note - Ryann Galdamez PA - 12/27/2020 12:53 PM CDT Associated Problem(s): Acquired hypothyroidism Fasting labs entered, will notify patient of results as available * Assessment & Plan Note - Ingrid Milligan MA - 12/27/2020 10:40 AM CDTAssociated Problem(s): BMI 30.0-30.9,adult (Resolved 10/09/2022) Obesity is unchanged. Discussed the patient's BMI. The BMI is above average. BMI management plan is completed. BMI Follow-up includes: nutrition counseling, exercise counseling and education provided. * Assessment & Plan Note - Ingrid Milligan MA - 12/27/2020 10:39 AM CDTAssociated Problem(s): BMI 32.0-32.9,adult (Resolved 06/03/2021) Obesity is unchanged. Discussed the patient's BMI. The BMI is above average. BMI management plan is completed. BMI Follow-up includes: nutrition counseling, exercise counseling and education provided. documented in this encounter Plan of Treatment Not on file documented as of this encounter Procedures Procedure Name Priority Date/Time Associated Diagnosis Comments URINALYSIS AND REFLEX TO MICROSCOPIC Routine 12/27/2020 11:50 AM CDT Fatigue, unspecified type CBC WITH AUTO DIFFERENTIAL Routine 12/27/2020 11:50 AM CDT Type 2 diabetes mellitus without complication, without long-term current use of insulin ([facility]) ([facility]) Fatigue, unspecified type VITAMIN D 25 HYDROXY Routine 12/27/2020 11:50 AM CDT Fatigue, unspecified type Vitamin D deficiency TSH Routine 12/27/2020 11:50 AM CDT Fatigue, unspecified type Hypothyroidism, unspecified type T4, FREE Routine 12/27/2020 11:50 AM CDT Fatigue, unspecified type Hypothyroidism, unspecified type HEMOGLOBIN A1C Routine 12/27/2020 11:50 AM CDT Type 2 diabetes mellitus without complication, without long-term current use of insulin ([facility]) (HCC) Fatigue, unspecified type VITAMIN B12 Routine 12/27/2020 11:50 AM CDT Fatigue, unspecified type COMPREHENSIVE METABOLIC PANEL Routine 12/27/2020 11:50 AM CDT Type 2 diabetes mellitus without complication, without long-term current use of insulin ([facility]/HCC) (HCC) Fatigue, unspecified type documented in this encounter Results * Urinalysis reflex to microscopic (12/27/2020 11:50 AM CDT) Color, ur YELLOW YELLOW [facility] Appearance, ur CLEAR CLEAR [facility] Specific gravity 1.008 1.001 - 1.035 [facility] pH, ur < OR = 5.0 5.0 - 8.0 [facility] Glucose, ur NEGATIVE NEGATIVE [facility] Bilirubin, ur NEGATIVE NEGATIVE [facility] Ketones, ur NEGATIVE NEGATIVE [facility] Blood, ur NEGATIVE NEGATIVE [facility] Protein, ur, quant NEGATIVE NEGATIVE [facility] Nitrites, ur NEGATIVE NEGATIVE [facility] Leukocyte esterase, ur NEGATIVE NEGATIVE [facility] Urine 12/27/2020 11:5 0 AM CDT 12/27/2020 11:51 AM CDT Narrative [facility] - 12/28/2020 2:51 PM CDT FASTING:NO FASTING: NO Ryann RASHID LAB URINE ORDERABLES Final Result [facility] [address] [phone] * Vitamin B12 (12/27/2020 11:50 AM CDT) Vitamin B12 550 200 - 1,100 pg/mL [facility] Blood specimen (specimen) 12/27/2020 11:50 AM CDT 12/27/2020 11:51 AM CDT Narrative [facility] - 12/28/2020 2:51 PM CDT FASTING:NO FASTING: NO Ryann RASHID LAB BLOOD ORDERABLES Final Result Performing Organization Address City/[facility]/ZIP Co de Phone Number [facility] [address] [phone] * Vitamin D 25 hydroxy (12/27/2020 11:50 AM CDT) [facility] Vitamin D 25-OH 47 30 - 100 ng/mL [facility] Comment: Vitamin D Status ? 25-OH Vitamin D: Deficiency: ?<20 ng/mL Insufficiency: ? 20 - 29 ng/mL Optimal: ? > or = 30 ng/mL For 25-OH Vitamin D testing on patients on D2-supplementation and patients for whom quantitation of D2 and D3 fractions is required, the QuestAssureD(TM) 25-OH VIT D, (D2,D3), LC/MS/MS is recommended: order code 19589 (patients >2yrs). See Note 1 Note 1 For additional information, please refer to http://education.[employer]/faq/LPD499 (This link is being provided for informational/ educational purposes only.) Blood specimen (specimen) 12/27/2020 11:50 AM CDT 12/27/2020 11:51 AM CDT Narrative [facility] - 12/28/2020 2:51 PM CDT FASTING:NO FASTING: NO Ryann RASHID LAB BLOOD ORDERABLES Final Result Performing Organization Address City/[facility]/ZIP Co de Phone Number [facility] [address] [phone] * T4, free (12/27/2020 11:50 AM CDT) [facility] Free T4 1.5 0.8 - 1.8 ng/dL [facility] Blood specimen (specimen) 12/27/2020 11:50 AM CDT 12/27/2020 11:51 AM CDT Narrative [facility] - 12/28/2020 2:51 PM CDT FASTING:NO FASTING: NO Ryann RASHID LAB BLOOD ORDERABLES Final Result Performing Organization Address [facility] Co de Phone Number [facility] [address] [place] [address] * TSH (12/27/2020 11:50 AM CDT) Pathologist [facility] TSH 1.53 0.40 - 4.50 mIU/L [facility] Blood specimen (specimen) 12/27/2020 11:50 AM CDT 12/27/2020 11:51 AM CDT Narrative [facility] - 12/28/2020 2:51 PM CDT FASTING:NO FASTING: NO Ryann RASHID LAB BLOOD ORDERABLES Final Result Performing Organization Address [facility] de Phone Number [facility] [address] [place] [address] * (ABNORMAL) Hemoglobin A1c (12/27/2020 11:50 AM CDT) Pathologist [facility] Hgb A1C 6.5(H) <5.7 % of total Hgb [facility] Blood specimen (specimen) 12/27/2020 11:50 AM CDT 12/27/2020 11:51 AM CDT Narrative [facility] - 12/28/2020 2:51 PM CDT FASTING:NO FASTING: NO Ryann RASHID LAB BLOOD ORDERABLES Final Result Performing Organization Address City/[facility]/ZIP Co de Phone Number [facility] [address] [address] * (ABNORMAL) Comprehensive metabolic panel (12/27/2020 11:50 AM CDT) [facility] Glucose 180(H) 65 - 139 mg/dL [facility] Comment: ? Non-fasting reference interval BUN 19 7 - 25 mg/dL [facility] Creatinine 0.78 0.60 - 0.93 mg/dL [facility] Comment: For patients >49 years of age, the reference limit for Creatinine is approximately 13% higher for people identified as -Iraqi. eGFR NON-AFR. NAMIBIAN 72 > OR = 60 mL/min/1 .73m2 [facility] EGFR 84 > OR = 60 mL/min/1 .73m2 [facility] BUN/creat ratio NOT APPLICABLE 6 - 22 (calc) [facility] Sodium 138 135 - 146 mmol/L [facility] Potassium, pl 4.6 3.5 - 5.3 mmol/L [facility] Chloride 104 98 - 110 mmol/L [facility] CO2 27 20 - 32 mmol/L [facility] Calcium 9.9 8.6 - 10.4 mg/dL [facility] Protein, sr 6.8 6.1 - 8.1 g/dL [facility] Albumin 4.4 3.6 - 5.1 g/dL [facility] GLOBULIN 2.4 1.9 - 3.7 g/dL (calc) [facility] Alb/glob ratio 1.8 1.0 - 2.5 (calc) [facility] Bilirubin, total 0.6 0.2 - 1.2 mg/dL [facility] Alk phos 122 37 - 153 U/L [facility] AST 17 10 - 35 U/L [facility] ALT (SGPT) 14 6 - 29 U/L [facility] Blood specimen (specimen) 12/27/2020 11:50 AM CDT 12/27/2020 11:51 AM CDT Narrative [facility] - 12/28/2020 2:51 PM CDT FASTING:NO FASTING: NO us Ryann RASHID LAB BLOOD ORDERABLES Final Result [facility] [address] [address] [phone] * CBC with auto differential (12/27/2020 11:50 AM CDT) Pathologist [facility] WBC 7.4 3.8 - 10.8 Thousand/u L [facility] RBC, POC 3.98 3.80 - 5.10 Million/uL [facility] Hgb 11.9 11.7 - 15.5 g/dL [facility] Hct 37.1 35.0 - 45.0 % [facility] MCV 93.2 80.0 - 100.0 fL [facility] MCH 29.9 27.0 - 33.0 pg [facility] MCHC 32.1 32.0 - 36.0 g/dL [facility] Rdw 13.5 11.0 - 15.0 % [facility] Platelets 303 140 - 400 Thousand/u L [facility] MPV 10.7 7.5 - 12.5 fL [facility] Neutrophils, abs 5,276 1,500 - 7,800 cells/uL [facility] Lymphocytes, abs 1,576 850 - 3,900 cells/uL [facility] Monocyte abs 422 200 - 950 cells/uL [facility] Eosinophils, abs 96 15 - 500 cells/uL [facility] Basophils, abs 30 0 - 200 cells/uL [facility] Neutrophils 71.3 % [facility] Lymphocyte pct 21.3 % [facility] Monocytes 5.7 % [facility] Eosinophils 1.3 % [facility] Basophils 0.4 % [facility] Blood specimen (specimen) 12/27/2020 11:50 AM CDT 12/27/2020 11:51 AM CDT Narrative [facility] - 12/28/2020 2:51 PM CDT FASTING:NO FASTING: NO Ryann RASHID LAB BLOOD ORDERABLES Final Result [facility] [place] [address] [place] [address] documented in this encounter Visit Diagnoses Diagnosis Episode of recurrent major depressive disorder, unspecified depression episode severity (HCC)- Primary Anxiety Anxiety state, unspecified Type 2 diabetes mellitus without complication, without long-term current use of insulin ([facility]/HCC) (HCC) Obesity (BMI 30-39.9) BMI 32.0-32.9,adult Fatigue, unspecified type Hypothyroidism, unspecified type Vitamin D deficiency documented in this encounter Discontinued Medications Medication Sig Discontinue Reason Start Date End Da te sertraline (ZOLOFT) 50 mg tablet Take 1 tablet (50 mg total) by mouth daily 12/17/2020 12/27/2020 ALPRAZolam (XANAX) 0.25 mg tablet Take 1 tablet (0.25 mg total) by mouth daily as needed for anxiety Reorder 12/12/2020 12/27/2020 documented as of this encounter Care Teams Lithographic Proofer Apprentice Relationship Specialty Start Date End Date Ryann Galdamez PA PCP - [facility] 07/16/20 04/01/21 documented as of this encounter
--- OUTSIDE RECORDS SUMMARY | 2024-03-13 01:13 | XMS_ITS | Encounter Summary ---
Author Organization [facility] Address [address] [place] [address] Care Team Providers Care Nurse Name Role Phone Ryann Galdamez Primary Care Provider +1- [phone] Reason for Visit * Reason Comments Follow-up grief Encounter Details Date Type Department Care Team (Late st Contact Info) Description 01/17/2021 11:00 AM CDT Office Visit [facility] Medical [facility] Family Medicine [address] [place] [address] Ryann Galdamez PA [facility] [place], [place] [id number] Episode of recurrent major depressive disorder, unspecified depression episode severity (HCC) (Primary Dx); BMI 32.0-32.9,adult; Obesity (BMI 30-39.9); Need for influenza vaccination; Anxiety Social History Tobacco Use Types Packs/Day [...] Answer Date Recorded PHQ-2 Total Score 6 01/17/2021 Comments No Sex and Gender Information Value Date Recorded Sex Assigned at Not on file 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 Gender Identity Not on file Sexual Orientation Not on file documented as of this encounter Last Filed Vital Signs Vital Sign Reading Time Taken Comments Blood Pressure 136/80 01/17/2021 11:05 AM CDT Pulse 88 01/17/2021 11:05 AM CDT Temperature - - Respiratory Rate 19 01/17/2021 11:05 AM CDT Oxygen Saturation 98% 01/17/2021 11:05 AM CDT Inhaled Oxygen Concentration - - Weight 81.6 kg (180 lb) 01/17/2021 11:05 AM CDT Height 157.5 cm (5' 2 ) 01/17/2021 11:05 AM CDT Body Mass Index 32.92 01/17/2021 11:05 AM CDT documented in this encounter Patient Instructions * Patient Instructions* Ryann Galdamez PA - 01/17/2021 11:00 AM CDT -Taper off of zoloft: 50mg daily x 7 days, then 25mg daily x 5 days, then 25mg every other day x 3 days, and then discontinue the medication. -When this is complete, start paxil 10mg daily -Call Dr. Reese, psychiatrist at [phone], [address] [place] [address] documented in this encounter Ordered Prescriptions Prescription Sig Dispense Quantity Refills Last Filled Start Date End Date PARoxetine (PAXIL) 10 mg tabletIndications: Episode of recurrent major depressive disorder, unspecified depression episode severity (HCC),Anxiety Take 1 tablet (10 mg total) by mouth every morning 30 tablet 2 01/17/2021 documented in this encounter Progress Notes * Ryann Galdamez PA - 01/17/2021 11:00 AM CDT Images from the original note were not included. Chief Complaint Follow-up (grief) HPI Here for f/u of depression and anxiety. has been only taking 50mg of zoloft Using prn xanax, this helps with nerve and is helping her fall asleep or rest a little. Appetite is decreased, not enjoying things she used to. Grieving the of her husb and also dealing with the family issues of estate settlement. Her sister in law is the executor, but she finds herself often in the middle of it all. She has moved out of the house with hopes of it helping, and it has not improved things for her. She was previously on cymbalta, and she also tried wellbutrin without improvement. Allergies as of 01/17/2021 - Reviewed 01/17/2021 Allergen Reaction Noted ??? Amlodipine Shortness of breath 07/21/2019 ??? Prasanth inhibitors Cough ??? Citalopram ??? Lisinopril Outpatient Encounter Medications as of 01/17/2021 Medication Sig Dispense Refill ??? acetaminophen (TYLENOL) [...] total) by mouth nightly as needed for sleep30 tablet 0 ??? [DISCONTINUED] sertraline (ZOLOFT) 100 mg tablet Take 1 tablet (100 mg total) by mouth daily 30tablet 1 ??? CALCIUM CARBONATE ORAL Take 600 mg by mouth 2 (two) times a day (Patient not taking: Reported on 01/17/2021) ??? PARoxetine (PAXIL) 10 mg tablet Take 1 tablet (10 mg total) by mouth every morning 30 tablet 2 No facility-administered encounter medications on file as of 01/17/2021. Review of Systems Constitutional: Negative for fatigue, [...] dysphoric mood and sleep disturbance. Negative for confusion, self-injury and suicidal ideas. The patient is nervous/anxious. Vitals: 01/17/21 1105 BP: 136/80 Pulse: 88 Resp: 19 SpO2: 98% Weight: 81.6 kg (180 lb) Height: 157.5 cm (5' 2 ) Physical Exam Vitals and nursing note reviewed. Constitutional: Appearance: Normal appearance. She is not ill-appearing, toxic-appearing or diaphoretic. Comments: Tearful often HENT: Head: Normocephalic and atraumatic. Pulmonary: Effort: Pulmonary effort is normal. Breath sounds: Normal breath sounds. Musculoskeletal: General: Normal range of motion. Skin: General: Skin is warm. Neurological: General: [...] severity (HCC) (F33.9) (Primary) Assessment & Plan: Taper zoloft, start paxil She will be referred to psychiatry - phone number given for her to call as soon as possible for appt Orders: - Ambulatory referral to Psychiatry; Future - PARoxetine (PAXIL) 10 mg tablet; Take 1 tablet (10 mg total) by mouth every morning BMI 32.0-32.9,adult (Z68.32) Assessment & Plan: Encouraged heart healthy diet, exercise 4x/week for 30min each session Obesity (BMI 30-39.9) (E66.9) Assessment & Plan: Encouraged heart healthy diet, exercise 4x/week for 30min each session Need for influenza vaccination (Z23) - Flu Vaccine Quad High Dose PF 65Y+ IM - Fluzone High Dose Quad Anxiety (F41.9) Assessment & Plan: Taper zoloft, start paxil She will be referred to psychiatry - phone number given for her to call as soon as possible for appt Orders: - Ambulatory referral to Psychiatry; Future - PARoxetine (PAXIL) 10 mg tablet; Take 1 tablet (10 mg total) by mouth every morning Orders Placed This Encounter ??? Flu Vaccine Quad High Dose PF 65Y+ IM - Fluzone High Dose Quad ??? Ambulatory referral to Psychiatry Standing Status: Future Standing Expiration Date: 01/17/2022 Referral Priority: Routine Referral Type: Consultation Referral Reason: Specialty Services Required Referral Location: External Order Referred to Provider: Vu Reese MD Requested Specialty: Psychiatry Number of Visits Requested: 1 ??? PARoxetine (PAXIL) 10 mg tablet Sig: Take 1 tablet (10 mg total) by mouth every morning Dispense: 30 tablet Refill: 2 RACHID Jenkins documented in this encounter Miscellaneous Notes * Assessment & Plan Note - Ryann Galdamez PA - 01/17/2021 6:10 PM CDT Associated Problem(s): Moderate episode of recurrent major depressive disorder (HCC) Taper zoloft, start paxil She will be referred to psychiatry - phone number given for her to call as soon as possible for appt * Assessment & Plan Note - Ryann Galdamez PA - 01/17/2021 6:09 PM CDT Associated Problem(s): Anxiety (Resolved 03/03/2023) Taper zoloft, start paxil She will be referred to psychiatry - phone number given for her to call as soon as possible for appt * Assessment & Plan Note - Karoline Cooper LPN - 01/17/2021 11:09 AM CDT Associated Problem(s): BMI 32.0-32.9,adult (Resolved 06/03/2021) Encouraged heart healthy diet, exercise 4x/week for 30min each session * Assessment & Plan Note - Karoline Cooper LPN - 01/17/2021 11:09 AM CDT Associated Problem(s): BMI 30.0-30.9,adult (Resolved 10/09/2022) Encouraged heart healthy diet, exercise 4x/week for 30min each session documented in this encounter Plan of Treatment Not on file documented as of this encounter Visit Diagnoses Diagnosis Episode of recurrent major depressive disorder, unspecified depression episode severity (HCC)- Primary BMI 32.0-32.9,adult Obesity (BMI 30-39.9) Need for influenza vaccination Need for prophylactic vaccination and inoculation against influenza Anxiety Anxiety state, unspecified documented in this encounter Discontinued Medications Medication Sig Discontinue Reason Start Date End Da te sertraline (ZOLOFT) 100 mg tabletIndications:Episode of recurrent major depressive disorder, unspecified depression episode severity (HCC),Anxiety Take 1 tablet (100 mg total) by mouth daily 12/27/2020 01/17/2021 documented as of this encounter Orders Immunization/Injection Count Last Ordered Date First Ordered Date FLU VACCINE HIGH DOSE QUAD P F 65Y+ IM - FLUZONE HIGH DOS 1 01/17/2021 documented in this encounter Care Teams Nurse Relationship Specialty Start Date End Date Ryann Galdamez PA PCP - General Operations Research Group Manager 07/16/20 04/01/21 documented as of this encounter
--- OUTSIDE RECORDS SUMMARY | 2024-03-13 01:13 | XMS_ITS | Encounter Summary ---
Author Organization [facility] Address [address] [place] [address] Phone Care Team Providers Care Wire Preparation Worker Name Role Phone Ryann Galdamez Primary Care Provider +1- [phone] Encounter Details Date Type Department Care Team (Late st Contact Info) Description 03/04/2021 Telephone [facility] Cardiology [address] Advanced Medicine [address]th [place] [address] [place] [address] Cathleen Walker MD [address] [facility] [address] [place] [address] Social History Tobacco Use Types [...] on file 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 Gender Identity Not on file Sexual Orientation Not on file documented as of this encounter Ordered Prescriptions Prescription Sig Dispense Quantity Refills Last Filled Start Date End Date spironolactone (ALDACTONE) 25 mg tablet Take 0.5 tablets (12.5 mg total) by mouth daily 15 tablet 11 03/05/2021 2 documented in this encounter Miscellaneous Notes * Telephone Encounter - Dolores Moreau RN - 03/14/2021 9:05 AM CST 03/12/21 cmp in chart under another md Y LEVEL PROJECT ENGINEER * Telephone Encounter - Paulina Bright RN - 03/05/2021 3:55 PM ENTRY LEVEL PROJECT ENGINEER Spoke w/ pt She recalled taking this before According to notes, pt was taking in early 2020, then it was d/c by CCL nurse end of August Pt is willing to restart Sent to pharm Lab at [facility], sent order Y LEVEL PROJECT ENGINEER * Telephone Encounter - Cathleen Walker MD - 03/05/2021 2:40 PM CST Her BP may be higher than normal due to stress. I'm sorry to hear about thee passing of her . Continue to work with PCP and therapist Start spironolactone 12.5 mg daily Continue coreg BMP in 1 week Y LEVEL PROJECT ENGINEER * Telephone Encounter - Paulina Bright RN - 03/04/2021 4:14 PM ENTRY LEVEL PROJECT ENGINEER Spoke w/ pt She reports increase BP, before meds in the morning 164/127 81 After meds 122/83 84 Then next day 159/100 84, morning, later dale 148/104 84 She confirmed meds on her list She has no other sx She states she is very stressed, since her passed in September, and she is seeing her PCP for this, getting some med help and trying to find a therapist as well She was tearful and said it has been a really hard year Note, pt is allergic to amlodipine and lisinopril Y LEVEL PROJECT ENGINEER * Telephone Encounter - Lili Zelaya - 03/04/2021 3:36 PM CST Pt says she just missed a call from a nurse and her phone wouldn't work and she does not get vm right now, she would like to speak with a nurse Y LEVEL PROJECT ENGINEER * Telephone Encounter - Kena Ruvalcaba - 03/04/2021 8:24 AM CST Aaron Pt called states her BP is running high, please call. Y LEVEL PROJECT ENGINEER documented in this encounter Plan of Treatment Scheduled Orders Name Type Priority Associated Diagnoses Orde r Schedule Basic metabolic panel Lab Routine Hypertension, unspecified type Expected: 03/05/2021, Expires: 03/05/2022 documented as of this encounter Visit Diagnoses Diagnosis Hypertension, unspecified type- Primary documented in this encounter Care Teams Wire Preparation Worker Relationship Specialty Start Date End Date Ryann Galdamez PA PCP - General Canvas Baster Jumpbasting 07/16/20 04/01/21 documented as of this encounter
--- OUTSIDE RECORDS SUMMARY | 2024-03-13 01:13 | XMS_ITS | Encounter Summary ---
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 * Telephone Encounter - Ryann Ayala PA - 09/13/2020 1:06 PM CDT Please let Mrs. Pearce know that we did receive her records from Dr. Cleaning, and I have updated her history. I am placing the chart for scan and to add health maintenance items to her checklist. documented in this encounter Plan of Treatment Not on file documented as of this encounter Visit Diagnoses Not on filedocumented in this encounter Care Teams Water Resource Project Manager Relationship Specialty Start Date End Date Ryann Galdamez PA PCP - General Gasoline Engine Assembler 07/16/20 04/01/21 documented as of this encounter
--- OUTSIDE RECORDS SUMMARY | 2024-03-13 01:13 | XMS_ITS | Encounter Summary ---
Author Organization [facility] Address [address] [place] [address] Phone Care Team Providers Care Assembler Carbon Brushes Name Role Phone Ryann Galdamez Primary Care Provider +1- [phone] Encounter Details Date Type Department Care Team (Late st Contact Info) Description 12/06/2020 Orders Only [facility] Cardiology [address] Advanced Medicine 8th [place] [address] [place] [address] Cathleen Walker MD [address] [facility] [address] [place], [place] [id number] Acute on chronic systolic CHF (congestive heart [...] on file 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 Gender Identity Not on file Sexual Orientation Not on file documented as of this encounter Ordered Prescriptions Prescription Sig Dispense Quantity Refills Last Filled Start Date End Date furosemide (LASIX) 40 mg tablet Take 1 tablet (40 mg total) by mouth daily 30 tablet 11 12/06/2020 09/12/2021 documented in this encounter Plan of Treatment Not on file documented as of this encounter Procedures Procedure Name Priority Date/Time Associated Diagnosis Comments BASIC METABOLIC PANEL Routine 12/14/2020 9:51 AM CDT Acute on chronic systolic CHF (congestive heart failure) (CMS/HCC) ([facility]) documented in this encounter Results * (ABNORMAL) Basic metabolic panel (12/14/2020 9:51 AM CDT) Glucose 132(H) 65 - 99 mg/dL [facility] Comment: ? Fasting reference interval For someone without known diabetes, a glucose value >125 mg/dL indicates that they may have diabetes and this should be confirmed with a follow-up test. BUN 14 7 - 25 mg/dL [facility] Creatinine 0.69 0.60 - 0.93 mg/dL [facility] Comment: For patients >49 years of age, the reference limit for Creatinine is approximately 13% higher for people identified as -[place]gu[place]. eGFR NON-AFR. LEBANESE 83 > OR = 60 mL/min/1 .73m2 [facility] EGFR 96 > OR = 60 mL/min/1 .73m2 [facility] BUN/creat ratio NOT APPLICABLE 6 - 22 (calc) [facility] Sodium 137 135 - 146 mmol/L [facility] Potassium, pl 4.7 3.5 - 5.3 mmol/L [facility] Chloride 103 98 - 110 mmol/L [facility] CO2 22 20 - 32 mmol/L [facility] Calcium 9.5 8.6 - 10.4 mg/dL [facility] Blood specimen (specimen) 12/14/2020 9:51 AM CDT 12/14/2020 9:52 AM CDT Cathleen Mccormick MD LAB BLOOD ORDERA BLES Final Result [facility] [place] [id number] [place] [id number] documented in this encounter Visit Diagnoses Diagnosis Acute on chronic systolic CHF (congestive heart failure) (CMS/HCC) (HCC)- Primary documented in this encounter Discontinued Medications Medication Sig Discontinue Reason Start Date End Da te furosemide (LASIX) 20 mg tablet TAKE 20MG TABLET ALONG WITH 40MG TABLET FOR TOTAL DAILY DOSE OF 60MG 09/19/2020 12/06/2020 furosemide (LASIX) 40 mg tablet TAKE 40MG WITH 20MG TABLET FOR TOTAL DAILY DOSE OF 60MG Reorder 09/19/2020 12/06/2020 documented as of this encounter Care Teams Assembler Carbon Brushes Relationship Specialty Start Date End Date Ryann Galdamez PA PCP - General Residential Therapist 07/16/20 04/01/21 documented as of this encounter
--- OUTSIDE RECORDS SUMMARY | 2024-03-13 01:13 | XMS_ITS | Encounter Summary ---
Author Organization [facility] Address [address] [place] [address] Phone Care Team Providers Care Investigative Reporter Name Role Phone Ryann Galdamez Primary Care Provider +1- [phone] Encounter Details Date Type Department Care Team (Late st Contact Info) Description 09/03/2020 Orders Only [facility] Cardiology [address] [facility] Advanced Medicine 8th [place] [address] [place] [address] Cathleen Walker MD [address] [facility] [address] [place], [place] [id number] Chronic heart failure with preserved ejection fraction (CMS/HCC) (Primary Dx) Social History Tobacco Use Types [...] on file 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 Gender Identity Not on file Sexual Orientation Not on file documented as of this encounter Plan of Treatment Not on file documented as of this encounter Procedures Procedure Name Priority Date/Time Associated Diagnosis Comments CBC WITH AUTO DIFFERENTIAL Routine 09/10/2020 9:03 AM CDT Chronic heart failure with preserved ejection fraction (CMS/HCC) BASIC METABOLIC PANEL Routine 09/10/2020 9:03 AM CDT Chronic heart failure with preserved ejection fraction (CMS/HCC) documented in this encounter Results * CBC with auto differential (09/10/2020 9:03 AM CDT) WBC 6.0 3.8 - 10.8 Thousand/u L [facility] RBC, POC 3.95 3.80 - 5.10 Million/uL [facility] Hgb 11.7 11.7 - 15.5 g/dL [facility] Hct 35.6 35.0 - 45.0 % [facility] MCV 90.1 80.0 - 100.0 fL [facility] MCH 29.6 27.0 - 33.0 pg [facility] MCHC 32.9 32.0 - 36.0 g/dL [facility] Rdw 13.8 11.0 - 15.0 % [facility] Platelets 256 140 - 400 Thousand/u L [facility] MPV 10.2 7.5 - 12.5 fL [facility] Neutrophils, abs 3,720 1,500 - 7,800 cells/uL [facility] Lymphocytes, abs 1,608 850 - 3,900 cells/uL [facility] Monocyte abs 480 200 - 950 cells/uL [facility] Eosinophils, abs 162 15 - 500 cells/uL [facility] Basophils, abs 30 0 - 200 cells/uL [facility] Neutrophils 62 % [facility] Lymphocyte pct 26.8 % [facility] Monocytes 8.0 % [facility] Eosinophils 2.7 % [facility] Basophils 0.5 % [facility] Blood specimen (specimen) 09/10/2020 9:03 AM CDT 09/10/2020 9:03 AM CDT Cathleen Mccormick MD LAB BLOOD ORDERA BLES Final Result [facility] [id number] [id number] * (ABNORMAL) Basic metabolic panel (09/10/2020 9:03 AM CDT) [facility] Glucose 160(H) 65 - 99 mg/dL [facility] Comment: ? Fasting reference interval For someone without known diabetes, a glucose value >125 mg/dL indicates that they may have diabetes and this should be confirmed with a follow-up test. BUN 20 7 - 25 mg/dL [facility] Creatinine 0.73 0.60 - 0.93 mg/dL [facility] Comment: For patients >49 years of age, the reference limit for Creatinine is approximately 13% higher for people identified as -Pakistani. eGFR NON-AFR. ROMANIAN 78 > OR = 60 mL/min/1 .73m2 [facility] EGFR 91 > OR = 60 mL/min/1 .73m2 [facility] BUN/creat ratio NOT APPLICABLE 6 - 22 (calc) [facility] Sodium 135 135 - 146 mmol/L [facility] Potassium, pl 5.1 3.5 - 5.3 mmol/L [facility] Chloride 102 98 - 110 mmol/L [facility] CO2 25 20 - 32 mmol/L [facility] Calcium 10.0 8.6 - 10.4 mg/dL [facility] Blood specimen (specimen) 09/10/2020 9:03 AM CDT 09/10/2020 9:03 AM CDT Cathleen Mccormick MD LAB BLOOD ORDERA BLES Final Result [facility] [id number] [id number] documented in this encounter Visit Diagnoses Diagnosis Chronic heart failure with preserved ejection fraction (CMS/HCC) (HCC)- Primary documented in this encounter Care Teams Investigative Reporter Relationship Specialty Start Date End Date Ryann Galdamez PA PCP - General Smelter Operator 07/16/20 04/01/21 documented as of this encounter
--- OUTSIDE RECORDS SUMMARY | 2024-03-13 01:13 | XMS_ITS | Encounter Summary ---
Author Organization [facility] Address [address] [place] [address] Care Team Providers Care Software Licensing Executive Name Role Phone Ryann Galdamez Primary Care Provider +1- [phone] Encounter Details Date Type Department Care Team (Late st Contact Info) Description 08/21/2020 Orders Only [facility] Rad[facility] [address] [place] [address] Jillian Ríos RN Social History Tobacco Use Types Packs/Day Years Used Date Smoking Tobacco: Never Smokeless Tobacco: Never Alcohol Use Standard Drinks/Week Comments Yes 0 (1 standard drink = 0.6 oz pur e alcohol) 1/mo PHQ-2 Answer Date Recorded PHQ-2 Total Score 6 08/21/2020 Comments No Sex and Gender Information Value Date Recorded Sex Assigned at Not on file 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
--- OUTSIDE RECORDS SUMMARY | 2024-03-13 01:13 | XMS_ITS | Encounter Summary ---
Author Organization [facility] Healthcare Address [address] [place] [address] Care Team Providers Care Datastage Architect Name Role Phone Ryann Galdamez Primary Care Provider [phone]- [phone] Encounter Details Date Type Department Care Team (Late st Contact Info) Description 09/13/2020 7:47 AM CDT - 09/13/2020 3:01 PM CDT Hospital Encounter [facility] [address] [place] [address] Cathleen Walker MD [address] [facility] [address] [place] [address] Norma Conrad, DO [address] [place] [address] Abnormal stress echo; Acute on chronic systolic CHF (congestive heart failure) (CMS/HCC); Acute pulmonary embolism with acute cor pulmonale, unspecified pulmonary embolism type (CMS/HCC); Paroxysmal atrial fibrillation (CMS/HCC) Discharge Disposition: Discharge to home or [...] on file Legal 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 Gender Identity Not on file Sexual Orientation Not on file documented as of this encounter Last Filed Vital Signs Vital Sign Reading Time Taken Comments Blood Pressure 126/71 09/13/2020 2:30 PM CDT Pulse 79 09/13/2020 2:30 PM CDT Temperature 36.8 ??C (98.2 ??F) 09/13/2020 10:14 AM C DT Respiratory Rate 15 09/13/2020 2:30 PM CDT Oxygen Saturation 95% 09/13/2020 2:30 PM CDT Inhaled Oxygen Concentration - - Weight 94.1 kg (207 lb 7.3 oz) 09/13/2020 10:14 AM CDT Height - - Body Mass Index 37.93 09/04/2020 10:52 AM CDT documented in this encounter Discharge Diagnoses Diagnosis Nonrheumatic aortic (valve) stenosis - NONRHEUMATIC AORTIC (VALVE) STENOSIS Atherosclerotic heart disease of [place] coronary artery without angina pectoris - ATHEROSCLEROTIC HEART DISEASE OF [place] CORONARY ARTERY WITHOUT ANGINA PECTORIS Other persistent atrial fibrillation (HCC) - OTHER PERSISTENT ATRIAL FIBRILLATION Essential (primary) hypertension - ESSENTIAL (PRIMARY) HYPERTENSION Unspecified essential hypertension Type 2 diabetes mellitus without complications (CMS/HCC) (HCC) - TYPE 2 DIABETES MELLITUS WITHOUT COMPLICATIONS Obstructive sleep apnea (adult) (pediatric) - OBSTRUCTIVE SLEEP APNEA (ADULT) (PEDIATRIC) Personal history of pulmonary embolism - PERSONAL HISTORY OF PULMONARY EMBOLISM Personal history of other venous thrombosis and embolism - PERSONAL HISTORY OF OTHER VENOUS THROMBOSIS AND EMBOLISM Allergy status to other drugs, medicaments and biological substances - ALLERGY STATUS TO OTHER DRUGS, MEDICAMENTS AND BIOLOGICAL SUBSTANCES Other terminal carman (current) drug therapy - OTHER HALFWAY (CURRENT) DRUG THERAPY retirement (current) use of anticoagulants - PLANER HAND (CURRENT) USE OF ANTICOAGULANTS Long-term (current) use of anticoagulants oil heaterman (current) use of oral hypoglycemic drugs - HALFWAY (CURRENT) USE OF ORAL HYPOGLYCEMIC DRUGS oil heaterman (current) use of aspirin - HALFWAY (CURRENT) USE OF ASPIRIN documented in this encounter Discharge Instructions * Discharge Instructions* Sumaya Marshall RN - 09/13/2020 11:28 AM CDT Discharge Instructions For Cardiac Catheterization (Femoral Approach) Please use this as a guide for caring for yourself at home after your procedure. Take it easy for the next few days. ??? Gentle walking on level ground is OK. ??? You can eat your normal diet; remember to follow any diet restrictions your doctor has recommended. ??? You may have some bruising of the skin near the puncture site. This is common. ??? Remove the Band-aid or dressing on your groin tomorrow. ??? You may shower tomorrow. Be careful to avoid slipping, your leg may be stiff. ??? Continue your home medications on your regular schedule, except do not take metformin. You may restart this on Tuesday September 15, 2020. Avoid the Following: ??? Do not do strenuous or intense activities. Do not do aerobics. No stair stepping. No rowing. NoBicycling. Do not jog or run. No bowling, dancing, swimming, or sexual intercourse. If you are involved in other activities, ask your nurse or doctor first if it is OK. ??? Do not sit or soak in a bath, hot tub, pool of water, or go swimming. ??? Do not lift anything heavier than 5lbs for 3 days. ??? Do not drive for the next 3 days. ??? Due to receiving sedation for your procedure: 1. Do not make any legal decisions for 24 hours 2. Do not operate potentially dangerous machinery for 24 hours 3. Do not drink alcohol for 24hours ??? Avoid climbing stairs. If you must climb stairs, use your non-catheterized leg to go up the step, and then bring the other leg up to the same step. ??? Do not strain at bowel movements. If you tend to be constipated please start a stool softener that works for you. You may restart the above activities on: Wednesday September 16, 2020 Call your doctor immediately for any of the following rare but serious problems. If you are unable to reach your doctor go to the nearest Emergency Room. ??? Bleeding from catheterization puncture site: apply direct pressure with a clean cloth. If the bleeding doesn???t stop with gentle pressure call 911. ??? A knot, bruise, or lump that appears to be increasing in size or getting worse rather than disappearing. ??? Your catheterized leg is cold, pale, or numb when compared to the opposite leg ??? IV dye reactions are rare but can occur. If you develop a rash, hives, or itching of the skin or have throat tightness, notice swelling of the tongue or lips you may be having a dye reaction. For routine questions or concerns regarding your care after your catheterization please feel free to call us. From 7am-5pm M-F call our Outpatient Nurse Coordinators at [phone]. If you need to speak to someone after 5pm please call [facility] at [phone] and ask the ordering machine operator topage the Cardiac Chief Service Observer Fellow cotton classer. documented in this encounter Medications at Time of Discharge CALCIUM CARBONATE ORAL Take 600 mg by mouth 2 (two) times a day acetaminophen (TYLENOL) 500 mg tablet Take 2 tablets (1,000 mg total) by mouth as needed for pain When Needed 10/09/2022 ALPRAZolam (XANAX) 0.25 mg tablet as needed 03/14/2020 09/18/2020 apixaban (ELIQUIS) 5 mg tabletIndications :deep venous thrombosis Take 1 tablet (5 mg total) by mouth 2 (two) times a day 180 tablet 06/26/2020 09/19/2020 aspirin 81 mg enteric coated tablet Take 1 tablet (81 mg total) by mouth daily 30 tablet 11 08/29/2020 05/29/2021 buPROPion XL (WELLBUTRIN XL) 150 mg 24 hr tablet Take 150 mg by mouth daily 10/29/2020 carvediloL (COREG) 25 mg tablet TAKE 1 TABLET BY MOUTH TWICE A DAY WITH FOOD 180 tablet 07/02/2020 10/01/2020 dilTIAZem CD/XR/XT (CARDIZEM CD,DILACOR XR) 120 mg 24 hr capsule Take 1 capsule (120 mg total) by mouth daily 30 capsule 11 11/14/2019 10/25/2020 furosemide (LASIX) 40 mg tablet Take 1 tablet (40 mg total) by mouth daily 30 tablet 11 08/06/2020 09/19/2020 isosorbide mononitrate ER (IMDUR) 30 mg 24 hr tablet Take 1 tablet (30 mg total) by mouth daily 15 tablet 11 08/29/2020 11/16/2020 levothyroxine (SYNTHROID) 50 mcg tablet Take 25 mcg by mouth 2 (two) times a day 1 03/24/2018 10/29/2020 losartan (COZAAR) 25 mg tablet Take 50 mg by mouth 2 (two) times a day 04/06/2020 09/18/2020 metFORMIN XR (GLUCOPHAGE XR) 500 mg 24 hr tablet Take 1,000 mg by mouth nightly 09/18/2020 potassium chloride ER (KLOR-CON) 20 mEq CR tablet Take 1 tablet (20 mEq total) by mouth 2 (two) times a day 180 tablet 3 03/22/2020 03/21/2021 rosuvastatin (CRESTOR) 20 mg tablet TAKE 1 TABLET BY MOUTH EVERY DAY 90 tablet 3 09/11/2020 09/19/2021 SITagliptin (JANUVIA) 25 mg tabletIndications :type 2 diabetes mellitus Take 1 tablet (25 mg total) by mouth daily 30 tablet 3 09/04/2020 10/16/2020 zolpidem (AMBIEN) 5 mg tablet Take 5 mg by mouth nightly at bedtime. 06/30/2019 09/18/2020 documented as of this encounter Discharge Disposition Disposition Code Departure Means Destination Discharge to home or self care documented in this encounter Nursing Notes * Sumaya Marshall, ARMANI - 09/13/2020 2:56 PM CDT Pt ambulated to restroom, voided. Belongings returned. IV discontinued. Pt right groin site C/D/I- no bleeding, no hematoma, pulse palpable. Pt reviewed and signed AVS. Leaving via wheelchair w/son. documented in this encounter Miscellaneous Notes * Pre-Sedation Documentation - Braulio Orourke MD - 09/13/2020 7:52 AM CDT Sedation Plan ASA 3 - Severe systemic disease Mallampati class: I. Risks, benefits, and alternatives discussed with patient. History of sedation/Anesthesia complications:No History of transfusion reaction: No No current facility-administered medications for this encounter. Current Outpatient Medications Medication Sig Dispense Refill ??? buPROPion XL (WELLBUTRIN XL) 150 mg 24 hr tablet Take 150 mg by mouth daily ??? CALCIUM CARBONATE ORAL Take 600 mg by mouth 2 (two) times a day ??? acetaminophen (TYLENOL) 500 mg tablet Take [...] ??? losartan (COZAAR) 25 mg tablet Take 50 mg by mouth 2 (two) times a day ??? metFORMIN XR (GLUCOPHAGE XR) 500 mg 24 hr tablet Take 1,000 mg by mouth nightly ??? potassium chloride ER (KLOR-CON) 20 mEq [...] 5 mg by mouth nightly at bedtime. Laboratory review: Chemistry BMP No results found for: GLUCOSE, CALCIUM, SODIUM, POTASSIUM, CO2, BUNSER, CREATININE Current meds/Labs/Test Results that may affect sedation reviewed: Yes Last PO Intake: 09/12/20 11:59pm HEENT Exam: negative Sedation Plan: Moderate Braulio Orourke MD Television Parts Tester [facility] Cosigned by Norma Conrad DO at 09/13/2020 10:16 AM CDT * Pre-Cardiac Catheterization Workup and H&P - Jadiel Brice RN - 09/11/2020 3:31 PM CDT PRE-CARDIAC CATHETERIZATION WORKUP Patient Name: Prema Pearce Patient Patient : [id number] Date of Procedure: 09/13/2020 ORDERING SQL SSRS SSIS DEVELOPER: Surgeon(s): Sobia RussoChief Medical TechnologistMD Procedure(s): LEFT HEART CATHETERIZATION WITH CORONARY ANGIOGRAPHY AND WITH OR WITHOUT LEFT VENTRICULOGRAM [id number] Requested Diagnostic: [] Coronary Angiograms Only [x] Left Heart Cath [] LV Gram [] Right Heart Cath [] Right and Left Heart Cath Valve Study: [] Aortic [] Mitral [] Pulmonic [] Tricuspid [] Pulmonary HTN Study [] Pericardial Constriction Study [] Congential Study [] Other Study: Requested Intervention: [] Coronary [] FFR [] Percutaneous VAD [] IAPB [] Pericardiocentesis [] Vascular [] Renal Valvuloplasty: [] Aortic [] Mitral [] Pulmonic [] Tricuspid Strucutural Heart: [] ASD/PFO Closure [] VSD Closure [] TAVR [] Other Intervention: NARRATIVE: 80 y/o female w/ h/o persistent A fib, mod , htn, DM, AYAD, cardiomyopathy w/ recovered EF. Patient w/ progressive SOB w/ minimal exertion. Denies associated chest discomfort. States s/s present since May 2019. Abnormal stress test, referred for C. ALLERGIES: Amlodipine, Prasanth inhibitors, Citalopram, and Lisinopril Topical Iodine Allergy: [x] No [] Yes IV Contrast Allergy: [x] No [] Yes If yes, Premedicated for contrast allergy: [] No [] Yes PRE-Procedure Medications Antiarrhythmic Agent: [] Yes [x] No [] Contraindicated Aspirin: [x] Yes [] No [] Contraindicated Beta Drew (Any): [x] Yes [] No [] Contraindicated Ca Channel Drew (Any): [x] Yes [] No [] Contraindicated Long Acting Nirates (Any): [x] Yes [] No [] Contraindicated Non-Statin (Any): [] Yes [x] No [] Contraindicated Ranolazin: [] Yes [x] No [] Contraindicated Statin (Any): [x] Yes [] No [] Contraindicated Indications for Chief Service Observer visit (Select all that apply): [] ACS less than or equal to 24 hours [] ACS greater than 24 hours [] Stable/Known CAD [] Cardiac Arrhythmia [] Post Cardiac Transplant [] New Onset Angina less than or equal to 2 months [] Suspected CAD [] Worsening Angina [] Cardiomyopathy [] Pre-operative evaluation [] Valvular Disease [] LV Dysfunction [] Evaluation for Exercise Clearance [] Syncope [] Pericardial Disease [] Resuscitated Cardiac Arrest [] Congenital Heart Disease [x] Evaluate CAD [] Pre-Transplant Evaluation [x] Abnormal Stress Test [] Pulmonary HTN [] Heart Failure [] Other: Chest Pain Symptom Assessment: [] Typical Angina [x] Atypical Angina [] Non-anginal Chest Pain [] Asymptomatic HISTORY AND RISK FACTORS Family History of Premature CAD: [] Yes [x] No [] Male less than 55 years old [] Female less than 65 years old Relationship: Cerebrovascular Disease: [] Yes [x] No Hypertension: [x] Yes [] No Diabetes Mellitus: [x] Yes [] No Dyslipidemia: [x] Yes [] No Peripheral Arterial Disease: [] Yes [x] No Chronic Lung Disease: [] Yes [x] No Prior Heart Failure: [] Yes [x] No [] CKD [] ESRD [] Dialysis [] HD []PD: Prior LA: [] Yes [x] No If Yes, Most Recent LA Date: Tobacco Use Social History Tobacco Use Smoking Status Never Smoker Smokeless Tobacco Never Used Previous Cardiac and Peripheral Interventions: (Include hospital/procedure/most recent date) Cardiac Cath/Prior PCI:[] Yes [x] No If Yes, Most Recent PCI Date: Report Available: [] Yes [] No Prior CABG: [] Yes [x] No If Yes, Most Recent CABG Date: Report Available: [] Yes [] No Valvular Surgery: [] Yes [x] No Report Available: [] Yes [] No (Include percutaneous procedures): Peripheral Intervention: [] Yes [x] No Report Available: [] Yes [] No LABS Results for orders placed or performed in visit on 09/03/20 Basic metabolic panel Result Value Ref Range Glucose 160 (H) 65 - 99 mg/dL BUN 20 7 - 25 mg/dL Creatinine 0.73 0.60 - 0.93 mg/dL eGFR NON-AFR. BULGARIAN 78 > OR = 60 mL/min/1.73m2 EGFR 91 > OR = 60 mL/min/1.73m2 BUN/creat ratio NOT APPLICABLE 6 - 22 (calc) Sodium 135 135 - 146 mmol/L Potassium, pl 5.1 3.5 - 5.3 mmol/L Chloride 102 98 - 110 mmol/L CO2 25 20 - 32 mmol/L Calcium 10.0 8.6 - 10.4 mg/dL CBC with auto differential Result Value Ref Range WBC 6.0 3.8 - 10.8 Thousand/uL RBC, POC 3.95 3.80 - 5.10 Million/uL Hgb 11.7 11.7 - 15.5 g/dL Hct 35.6 35.0 - 45.0 % MCV 90.1 80.0 - 100.0 fL MCH 29.6 27.0 - 33.0 pg MCHC 32.9 32.0 - 36.0 g/dL Rdw 13.8 11.0 - 15.0 % Platelets 256 140 - 400 Thousand/uL MPV 10.2 7.5 - 12.5 fL Neutrophils, abs 3,720 1,500 - 7,800 cells/uL Lymphocytes, abs 1,608 850 - 3,900 cells/uL Monocyte abs 480 200 - 950 cells/uL Eosinophils, abs 162 15 - 500 cells/uL Basophils, abs 30 0 - 200 cells/uL Neutrophils 62 % Lymphocyte pct 26.8 % Monocytes 8.0 % Eosinophils 2.7 % Basophils 0.5 % WBC HGB HCT pits PT INR PTT Na K+ Glucose BUN Cr HCG Cath/PCI Indication: [] CAD (without Ischemic Sx) [x] Stable Angina [] New Onset Angina less than or equal to 2 months [] NSTE-ACS [] Other: [] STEMI Symptom Date: Time: [] Thrombolytic [] Yes [] No If Yes, Start Date Time [] Staged PCI, Anginal symptoms stable on Medical Therapy and restricted activity: Anginal Class within 2 weeks [] CCS I [] CCS II [x] CCS III [] CCS IV If AMI: [] Cardiogenic Shock at First Medical Contact [] Systolic Blood Pressure: and Heart Rate: at First Medical Contact [] Cardiac arrest within 24 hours [] Cardiogenic shock within 24 hours [] Cardiogenic shock at start of PCI Heart Failure: [] Yes [x] NO If Yes, Newly Diagnosed: [] Yes [] No [facility] Class: [] Class I [] Class II [] Class III [] Class IV HF Type: [] Diastolic [] Systolic [] Unknown Test Performed (Choose One): [] Exercise Stress Test (w/o imaging) [] Stress Echocardiogram [x] Stress Nuclear [] Stress Imaging w/CMR [] Cardiac CTA If Yes, Result: Result: [] Negative [x] Positive [] Indeterminate IF Positive: Risk/Extent of ischemia: [] Low [x] Intermediate [] High FINDINGS 1. There is small size, moderate ischemia of inferolateral wall. ?? 2. Normal left ventricular size and mildly reduced systolic function. ?? 3. Flow quantification with low hyperemic MBF and MFR in the right coronary artery and left circumflex distribution consistent with above ischemia. LVEF Assessed: [x] Yes [] No If yes, Most recent LVEF %:66 ECHO: Nurse Coordinator: Davina Brice RN Date: 09/11/20 Time: 1614 PHYSICAL EXAM There were no vitals taken for this visit. General Appearance: Alert, cooperative, no distress, appears stated age Head: Normocephalic, without obvious abnormality, atraumatic Eyes: PERRL, conjunctiva/corneas clear, EOM's intact, fundi benign, both eyes Ears: Normal TM's and external ear canals, both ears Nose: Nares normal, septum midline, mucosa normal, no drainage or sinus tenderness Throat: Lips, mucosa, and tongue normal; teeth and gums normal Neck: Supple, symmetrical, trachea midline, no adenopathy; thyroid: no enlargement/tenderness/nodules; no carotid bruit or JVD Back: Symmetric, no curvature, ROM normal, no CVA tenderness Lungs: Clear to auscultation bilaterally, respirations unlabored Chest Wall: No tenderness or deformity Heart: Regular rate and rhythm, S1 and S2 normal, no murmur, rub or gallop Breast Exam: No tenderness, masses, or nipple abnormality Abdomen: Soft, non-tender, bowel sounds active all four quadrants, no masses, no organomegaly Genitalia: Normal female without lesion, discharge or tenderness Rectal: Normal tone, no masses or tenderness; guaiac negative stool Extremities: Extremities normal, atraumatic, no cyanosis or edema Pulses: 2+ and symmetric all extremities Skin: Skin color, texture, turgor normal, no rashes or lesions Lymph nodes: Cervical, supraclavicular, and axillary nodes normal Neurologic: CNII-XII intact, normal strength, sensation and reflexes throughout Pulses Carotid/Bruit Brachial Radial Femoral/Bruit Popiteal DP PT Left Right CSHA Clinical Frailty Scale: [] 1: Very Fit [] 2: Well [] 3: Managing Well [x] 4: Vulnerable [] 5: Mildly Frail [] 6: Moderately Frail [] 7: Severely Frail [] 8: Very Severely Frail [] 9: Terminally Ill PLAN: Procedure, risks, benefits and alternatives have been explained to the patient. The patient voiced understanding, consent is signed and orders are written. Form Completed/Reviewed and Assessment Completed by: Braulio Orourke MD Television Parts Tester [facility] Cosigned by Norma Conrad DO at 09/13/2020 10:16 AM CDT documented in this encounter Plan of Treatment Not on file documented as of this encounter Procedures Procedure Name Priority Date/Time Associated Diagnosis Comments LEFT HEART CATHETERIZATION WITH CORONARY ANGIOGRAPHY AND WITH AND WITHOUT LEFT VENTRICULOGRAM Routine 09/13/2020 11:15 AM CDT Abnormal stress echo CBC WITHOUT DIFFERENTIAL Routine 09/13/2020 10:54 AM CDT POCT GLUCOSE DEVICE Routine 09/13/2020 9 :54 AM CDT ECG 12-LEAD Routine 09/13/2020 9:50 AM CDT documented in this encounter Results * LEFT HEART CATHETERIZATION WITH CORONARY ANGIOGRAPHY AND WITH AND WITHOUT LEFT VENTRICULOGRAM (09/13/2020 11:15 AM CDT) Anatomical Region Laterality Modality X-Ray Angiograph y Narrative 09/13/2020 11:54 AM CDT Cardiac Catheterization Report, Left Heart Facility: [facility] Referring Physician: Cathleen Walker MD Performing: Norma Conrad DO Fellow: Elio Gagnon MD; Kelly Orourke MD PATIENT CLINICAL PROFILE Prema Pearce is a 80 y.o. female with a history of persistent atrial fibrillation, history of cardiomyopathy with recovered LVEF, moderate aortic stenosis, history of pulmonary embolism and DVT in May 2019, hypertension, diabetes mellitus type 2, and AYAD who was referred for coronary angiography secondary to abnormal stress test. ??Nuclear perfusion stress test showed a small, moderate area of ischemia in the inferior wall with mildly depressed LVEF. ??Recent echocardiogram showing moderate aortic stenosis with normal LVEF. ??She is referred by Dr. Walker for left heart catheterization and selective coronary angiography. ?? Allergies: ??Amlodipine, Prasanth inhibitors, citalopram PROCEDURE 1. Informed consent was obtained. 2. The patient was prepped and draped in the usual sterile fashion. 3. Access: 2% lidocaine was used for local anesthesia; modified Seldinger technique; micropuncture technique; 5-Greek 12 cm sheath, right femoral artery. ?? 4. Sedation: versed 1 mg, fentanyl 25 mcg. 5. Selective angiography of the left coronary artery: JL4 catheter. ?? 6. Selective angiography of the right coronary artery: ??WRP catheter. 7. Left Heart Catheterization/no left ventriculography: WRP catheter. 8. Hemostasis: ?? In the holding area, manual compression will be used to obtain hemostasis of the access site(s). ? 9. Complications: During the procedure, there were no apparent complications. ??The patient tolerated the procedure well. ?? RESULTS Left Heart Hemodynamics: LV pressure 146/16 mmHg following selective coronary angiography; 126/78 mmHg in the aorta on pullback; there was a gradient across the aortic valve. ?? Selective Coronary Angiography: This coronary arterial system is a left dominant system. 1. Left main coronary artery: ??Left main coronary artery gives rise to the LAD and circumflex. ??There are minimal luminal irregularities. 2. Left anterior descending coronary artery: ??Left anterior descending artery arises from the left main and courses down the anterior wall, wrapping around the LV apex. ??The D1 branch has a 60% ostial stenosis with minimal disease throughout the rest of the vessel. ??There are minimal luminal irregularities throughout the LAD. ??The LAD is fairly tortuous, suggestive of hypertensive heart disease. 3. Left circumflex coronary artery: ??Left circumflex arises from the left main and gives rise to multiple OM branches. ??OM1 has a high origin in supplies the anterior lateral wall. ??Om 2 is a very large vessel that gives rise to multiple branches, including the PDA. ??There are minimal luminal irregularities. ??The circumflex and OM branches have significant tortuosity, suggestive of hypertensive heart disease. 4. Right coronary artery: ??The right coronary artery is a non dominant vessel that gives rise to a very large RV marginal branch, supplying a portion of the inferior wall. ??There are minimal luminal irregularities. DIAGNOSTIC IMPRESSIONS 1. Mildly elevated left ventricular systolic pressure during the study. 2. Mildly elevated left ventricular end diastolic pressure during the study. ?? 3. There is a gradient across the aortic valve of 20 mmHg on pullback. 4. There is no significant obstruction of the [place] coronary arteries. ?? There is, however, significant tortuosity of the coronary vessels, suggestive of hypertensive heart disease. THERAPEUTIC RECOMMENDATIONS Findings of the catheterization were discussed with the patient and will be conveyed to the referring physician who will determine the patient's future therapy and follow-up. ?? Conscious sedation note: I provided direct [id number] monitoring of conscious sedation, which was administered by an independent, trained nurse using fentanyl and midazolam for 28 minutes. Norma Conrad DO Gin Clerk Division of Cardiology [facility] Cathleen Mccormick MD CV CARDIAC CATH PROCEDURES Final Result * (ABNORMAL) CBC without differential (09/13/2020 10:54 AM CDT) WBC 6.1 3.8 - 9.9 K/cumm [facility] Hgb 11.1(L) 11.9 - 15.5 g/dL [facility] Hct 35.5(L) 35.6 - 45.5 % [facility] Plt 254 150 - 400 K/cumm [facility] MPV 10.3 9.1 - 12.[address] [facility] RBC 3.84(L) 3.90 - 5.20 M/cumm [facility] MCV 92.4 81.3 - 96.[address] [facility] MCH 28.9 27.1 - 33.[address] [facility] MCHC 31.3(L) 32.3 - 35.7 g/dL [facility] RDW CV 15.7(H) 11.1 - 14.9 % [facility] RDW SD 53.1(H) 35.7 - 48.[address] [facility] NRBC abs 0.00 0.00 - 0.01 K/cumm [facility] Blood specimen (specimen) 09/13/2020 10:54 AM CDT 09/13/2020 11:05 AM CDT Narrative [facility] - 09/13/2020 11:15 AM CDT To be drawn after hydration bolus complete us Norma Conrad DO LAB BLOOD ORDERABLE S Final Result Performing Organization Address [facility] Co de Phone Number [facility] Department of Laboratories [place], [place] [id number] * POCT glucose (09/13/2020 9:54 AM CDT) Pathologist [facility] Glucose, POC 162 70 - 199 mg/dL [facility] Blood specimen (specimen) 09/13/2020 9:54 AM CDT 09/13/2020 9:54 AM CDT Cathleen Mccormick MD LAB POCT ORDERAB LES - DEVICE Final Result Performing Organization Address [facility] Co de Phone Number [facility] [place] [address] * ECG 12 lead (09/13/2020 9:50 AM CDT) [facility] Signature Ventricular Rate EKG/Min 76 BPM [facility] Atrial Rate 72 BPM [facility] QRS-Interval (MSEC) 106 ms [facility] QT-Interval (MSEC) 386 ms [facility] QTc 434 ms [facility] R [place] 53 degrees [facility] T [place] 19 degrees [facility] Diagnosis Atrial fibrillation Nonspecific T wave abnormality Abnormal ECG When compared with ECG of 29-MAY-2019 21:27, anterior T wave abnormalities have improved Confirmed by BRAULIO HAMM M.D ([id number]) on 09/13/2020 4:08:12 PM [facility] 09/13/2020 9:50 AM CDT 09/13/2020 4:08 PM CDT us Norma Yanesminalesha DO ECG ORDERABLES Fin al Result Performing Organization Address [facility] Co de Phone Number [facility] documented in this encounter Visit Diagnoses Diagnosis Abnormal stress echo Acute on chronic systolic CHF (congestive heart failure) (CMS/HCC) (HCC) Acute pulmonary embolism with acute cor pulmonale, unspecified pulmonary embolism type (HCC) Paroxysmal atrial fibrillation (CMS/HCC) (HCC) Atrial fibrillation Abnormal stress echo documented in this encounter Administered Medications Inactive Administered Medications - up to 3 most recent administrations Medication Order MAR Action Action Date Dose Rate Site sodium chloride 0.9% bolus 284 mL 284 mL (rounded from 283.8 mL = 3 mL/kg ? 94.6 kg), intravenous, Once, On Yuliana 09/13/20 at 1015, For 1 dose, Pre-Procedure (CV), Immediately on arrival (at least 30 minutes prior to procedure) New Bag 09/13/2020 10:19 AM CDT 284 mL sodium chloride 0.9% flush 0.5-20 mL 0.5-20 mL, intra-catheter, As needed, line care, Starting on Yuliana 09/13/20 at 0931, Pre-Procedure (CV), Flush volume based on line type and size. Flush before and after each use. , Indications: FlushingIndications:Flushi ng sodium chloride 0.9% infusion 1 mL/kg/hr ? 94.6 kg (94.6 mL/hr), intravenous, Continuous, Starting on Yuliana 09/13/20 at 1015, Pre-Procedure (CV) New Bag 09/13/2020 10:19 AM CDT 1 mL/kg/hr 94.6 mL/hr documented in this encounter Discontinued Medications Medication Sig Discontinue Reason Start Date End Da te DULoxetine DR (CYMBALTA) 30 mg capsule 30mg daily x 7 days, then 30mg every other day x 7 days, then discontinue. 08/21/2020 09/11/2020 ergocalciferol (VITAMIN D) 50,000 unit capsule Take 50,000 Units by mouth once a week 06/30/2019 09/11/2020 ipratropium-albuteroL (DUO-NEB) 0.5-2.5 mg/3 mL nebulizer solutionIndications:Chr onic Obstructive Pulmonary Disease with Bronchospasms Take 3 mL by nebulization every 6 (six) hours as needed for wheezing or shortness of breath 09/11/2020 multivit,iron,minerals/ lutein (CENTRUM SILVER ULTRA WOMEN'S ORAL) Take 1 tablet by mouth daily 09/11/2020 spironolactone (ALDACTONE) 25 mg tablet Take 0.5 tablets (12.5 mg total) by mouth daily 08/06/2020 09/11/2020 documented as of this encounter Historical Medications * This list may reflect changes made after this encounter. CALCIUM CARBONATE ORAL Take 600 mg by mouth 2 (two) times a day buPROPion XL (WELLBUTRIN XL) 150 mg 24 hr tablet Take 150 mg by mouth daily 10/29/2020 added in this encounter Active and Recently Administered Medications Times are shown in CDT. Scheduled Medication Order 09/11/2020 09/12/2020 09/13/2020 sodium chloride 0.9% bolus 284 mL (COMPLETED)(Linked Group 1) 284 mL (rounded from 283.8 mL = 3 mL/kg ? 94.6 kg), intravenous, Once, On Yuliana 09/13/20 at 1015, For 1 dose, Pre-Procedure (CV), Immediately on arrival (at least 30 minutes prior to procedure) 1019 (New Bag - Prov ider: Mary Qiu RN) Continuous Medication Order 09/11/2020 09/12/2020 09/13/2020 sodium chloride 0.9% infusion(Linked Group 1) 1 mL/kg/hr ? 94.6 kg (94.6 mL/hr), intravenous, Continuous, Starting on Yuliana 09/13/20 at 1015, Pre-Procedure (CV) 1019 (New Bag - Prov ider: Mary Qiu RN)1308 (Stopped - Provider: Roland Isaacs RN) sodium chloride 0.9% infusion 100 mL/hr, intravenous, Administer over 5 Hours, Continuous, Starting on Yuliana 09/13/20 at 1215, For 3 hours, Recovery (CV) 1215 (Due) PRN Medication Order 09/11/2020 09/12/2020 09/13/2020 acetaminophen (TYLENOL) tablet 650 mg 650 mg, oral, Every 4 hours PRN, 1st line for pain, fever, fever greater than 38.3 C, Starting on Yuliana 09/13/20 at 1132, Recovery (CV), Indications: Fever, Pain fentaNYL (SUBLIMAZE) preservative free injection (CANCELED) As needed, Starting on Yuliana 09/13/20 at 1044, Intra-Procedure (CV) 1044 (Given - Provid er: Ruddy Harrington RN)1107 (Given - Provider: Ruddy Harrington RN) ioversoL (OPTIRAY 350) injection (CANCELED) As needed, Starting on Yuliana 09/13/20 at 1111, Intra-Procedure (CV) 1111 (Given - Provid er: Norma Conrad DO) midazolam (VERSED) 1 mg/mL preservative free injection (CANCELED) Administer over 2 Minutes, As needed, Starting on Yuliana 09/13/20 at 1044, Intra-Procedure (CV) 1044 (Given - Provid er: Ruddy Harrington RN)1107 (Given - Provider: Ruddy Harrington RN) sodium chloride 0.9% flush 0.5-20 mL 0.5-20 mL, intra-catheter, As needed, line care, Starting on Yuliana 09/13/20 at 0931, Pre-Procedure (CV), Flush volume based on line type and size. Flush before and after each use. , Indications: Flushing 1027 (MAY Hold - Pro vider: Automatic Transfer Provider - Reason: Patient not available)1901 (MAY Unhold - Provider: Automatic Discharge Provider) Linked Groups Order Group 1: sodium chloride 0.9% bolus 284 mL (COMPLETED)Jump to med 284 mL (rounded from 283.8 mL = 3 mL/kg ? 94.6 kg), intravenous, Once, On Yuliana 09/13/20 at 1015, For 1 dose, Pre-Procedure (CV), Immediately on arrival (at least 30 minutes prior to procedure) Followed by sodium chloride 0.9% infusionJump to med 1 mL/kg/hr ? 94.6 kg (94.6 mL/hr), intravenous, Continuous, Starting on Yuliana 09/13/20 at 1015, Pre-Procedure (CV) documented in this encounter Orders Medications Ordered That Jon ht Not Have Been Administered Count Last Ordered Date First Ordered Date acetaminophen (TYLENOL) tablet 650 mg 1 03/2020 fentaNYL (SUBLIMAZE) preserv ative free injection 09/13/2020 ioversoL (OPTIRAY 350) injection 09/14/19 midazolam (VERSED) 1 mg/mL p reservative free injection 09/13/2020 sodium chloride 0.9% flush 0.5-20 mL 03/2020 sodium chloride 0.9% infusion 09/13/2020 CORE MEASURES Count Last Ordered Date First Ord ered Date REASON FOR NO VTE PROPHYLAXIS AT ADMISSION 09/13/2020 documented in this encounter Care Teams Datastage Architect Relationship Specialty Start Date End Date Ryann Galdamez PA PCP - General Features Reporter 07/16/20 04/01/21 documented as of this encounter
--- OUTSIDE RECORDS SUMMARY | 2024-03-13 01:13 | XMS_ITS | Encounter Summary ---
Author Organization [facility] Address [address] [place] [address] Care Team Providers Care Sharepoint Application Architect Name Role Phone Ryann Galdamez Primary Care Provider [phone] Reason for Visit * Reason Comments Follow-up Encounter Details Date Type Department Care Team (Late st Contact Info) Description 11/29/2020 10:00 AM CDT Office Visit [facility] Family Medicine [address] [place] [address] Ryann Galdamez PA [facility] [place] [address] Type 2 diabetes mellitus without complication, without long-term current use of insulin (CMS/HCC) (HCC) (Primary Dx); Anxiety; Obesity (BMI 30-39.9) Social History Tobacco Use Types Packs/Day Years [...] on file 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 Gender Identity Not on file Sexual Orientation Not on file documented as of this encounter Last Filed Vital Signs Vital Sign Reading Time Taken Comments Blood Pressure 100/80 11/29/2020 10:07 AM CDT Pulse 71 11/29/2020 10:07 AM CDT Temperature 36.6 ??C (97.8 ??F) 11/29/2020 10:07 AM C DT Respiratory Rate - - Oxygen Saturation 98% 11/29/2020 10:07 AM CDT Inhaled Oxygen Concentration - - Weight 84 kg (185 lb 1.6 oz) 11/29/2020 10:07 AM CDT Height 157.5 cm (5' 2.01 ) 11/29/2020 10:07 AM C DT Body Mass Index 33.85 11/29/2020 10:07 AM CDT documented in this encounter Patient Instructions * Patient Instructions* Ryann Ayala PA - 11/29/2020 10:00 AM CDT -increase glipizide to 10mg twice daily -discontinue metformin -add sertraline daily. We will increase it at week 3 pending your response to the medication. documented in this encounter Ordered Prescriptions Prescription Sig Dispense Quantity Refills Last Filled Start Date End Date glipiZIDE (GLUCOTROL) 10 mg tabletIndications: type 2 diabetes mellitus Take 1 tablet (10 mg total) by mouth 2 (two) times a day before breakfast and lunch 60 tablet 3 11/29/2020 1 sertraline (ZOLOFT) 25 mg tablet Take 1 tablet (25 mg total) by mouth daily 30 tablet 1 11/29/2020 1 documented in this encounter Progress Notes * Ryann Ayala PA - 11/29/2020 10:00 AM CDT Images from the original note were not included. Chief Complaint Follow-up HPI Here for f/u of diabetes, anxiety. Very nervous. Wondering about zoloft. Has stopped wellbutrin due to SEs. Having to push herself to do things. Social situations haven't changed. bp running 110-120/80 Glucose running low 120-170s. 2 nights ago took glipizide and metformin later, woke up with a 67 at11pm. Taking 1000mg of metformin bid, glipizide 5mg bid. Wanting to take increase on glipizide and decrease the metformin. Allergies as of 11/29/2020 - Reviewed 11/29/2020 Allergen Reaction Noted ??? Amlodipine Shortness of breath 07/21/2019 ??? Prasanth inhibitors Cough ??? Citalopram ??? Lisinopril Outpatient Encounter Medications as of 11/29/2020 Medication Sig Dispense Refill ??? acetaminophen (TYLENOL) [...] DOSE OF 60MG 30 tablet 11 ??? potassium chloride ER (KLOR-CON) 20 mEq [...] by mouth nightly as needed ??? [DISCONTINUED] glipiZIDE (GLUCOTROL) 5 mg tablet Take 1 tablet (5 mg total) by mouth 2 (two) times a day before breakfast and lunch 60 tablet 3 ??? [DISCONTINUED] metFORMIN (GLUCOPHAGE) 1,000 mg tablet Take 1 tablet (1,000 mg total) by mouth 2(two) times a day with meals 60 tablet 3 ??? ALPRAZolam (XANAX) 0.25 mg tablet Take 1 tablet (0.25 mg total) by mouth daily as needed for anxiety 30 tablet 0 ??? glipiZIDE (GLUCOTROL) 10 mg tablet Take 1 tablet (10 mg total) by mouth 2 (two) times a day before breakfast and lunch 60 tablet 3 ??? sertraline (ZOLOFT) 25 mg tablet Take 1 tablet (25 mg total) by mouth daily 30 tablet 1 ??? [DISCONTINUED] budesonide (RHINOCORT AQUA) 32 mcg/actuation nasal spray Administer 2 sprays into each nostril daily (Patient not taking: Reported on 11/29/2020) 1 Bottle 1 No facility-administered encounter medications on file as of 11/29/2020. Review of Systems Constitutional: Positive for fatigue. [...] for confusion. The patient is nervous/anxious. Vitals: 11/29/20 1007 BP: 100/80 BP Location: Right arm Patient Position: Sitting Pulse: 71 Temp: 36.6 ??C (97.8 ??F) SpO2: 98% Weight: 84 kg (185 lb 1.6 oz) Height: 157.5 cm (5' [...] complication, without long-term current use of insulin (CMS/[facility]) (HCC) (E11.9) (Primary) Assessment & Plan: Increase glipizide to 10mg bid - will take with meals, discussed potential for hypoglycemia Dc metformin Anxiety (F41.9) Assessment & Plan: Add zoloft daily, continue with prn xanax Obesity (BMI 30-39.9) (E66.9) Assessment & Plan: Obesity is unchanged. Discussed the patient's BMI. The BMI is above average. BMI management plan is completed. BMI Follow-up includes: nutrition counseling, exercise counseling and education provided. Other orders - sertraline (ZOLOFT) 25 mg tablet; Take 1 tablet (25 mg total) by mouth daily - glipiZIDE (GLUCOTROL) 10 mg tablet; Take 1 tablet (10 mg total) by mouth 2 (two) times a day before breakfast and lunch Orders Placed This Encounter ??? sertraline (ZOLOFT) 25 mg tablet Sig: Take 1 tablet (25 mg total) by mouth daily Dispense: 30 tablet Refill: 1 ??? glipiZIDE (GLUCOTROL) 10 mg tablet Sig: Take 1 tablet (10 mg total) by mouth 2 (two) times a day before breakfast and lunch Dispense: 60 tablet Refill: 3 RACHID Jenkins documented in this encounter Miscellaneous Notes * Assessment & Plan Note - Ryann Ayala PA - 11/29/2020 10:30 AM CDT Associated Problem(s): Anxiety (Resolved 03/03/2023) Add zoloft daily, continue with prn xanax * Assessment & Plan Note - Ryann Ayala PA - 11/29/2020 10:29 AM CDT Associated Problem(s): Type 2 diabetes mellitus without complications (CMS/HCC) ([facility]) Increase glipizide to 10mg bid - will take with meals, discussed potential for hypoglycemia Dc metformin * Assessment & Plan Note - Ingrid Milligan MA - 11/29/2020 10:10 AM CDTAssociated Problem(s): BMI 30.0-30.9,adult (Resolved 10/09/2022) [...] current use of insulin (CMS/HCC) (HCC)- Primary Anxiety Anxiety state, unspecified Obesity (BMI 30-39.9) documented in this encounter Discontinued Medications Medication Sig Discontinue Reason Start Date End Da te budesonide (RHINOCORT AQUA) 32 mcg/actuation nasal spray Administer 2 sprays into each nostril daily 09/18/2020 11/29/2020 glipiZIDE (GLUCOTROL) 5 mg tabletIndications:type 2 diabetes mellitus Take 1 tablet (5 mg total) by mouth 2 (two) times a day before breakfast and lunch 11/12/2020 11/29/2020 metFORMIN (GLUCOPHAGE) 1,000 mg tablet Take 1 tablet (1,000 mg total) by mouth 2 (two) times a day with meals 11/22/2020 11/29/2020 documented as of this encounter Care Teams Sharepoint Application Architect Relationship Specialty Start Date End Date Ryann Galdamez PA PCP - General Retarder Operator 07/16/20 04/01/21 documented as of this encounter
--- OUTSIDE RECORDS SUMMARY | 2024-03-13 01:13 | XMS_ITS | Encounter Summary ---
Author Organization [facility] Address [address] [place] [address] Care Team Providers Care Automotive Electrician Helper Name Role Phone Ryann Galdamez Primary Care Provider +1- [phone] Reason for Referral * Consultation (Routine) - Closed Specialty Diagnoses / Procedures Referred By Indra t Referred To Contact Otolaryngology Diagnoses Thyroid nodule Ryann Galdamez PA Phone: tel: fax: Osvaldo Martinez MD [address] [facility] [address] [place] [address] Phone: tel: fax: Referral ID Status Reason Start Date Expiration Date V isits Requested Visits Authorized [id number] Closed Specialty Services Required 11/12/2020 11/13/2021 12 12 Question Answer Please select the performing region: [facility] (All Locations) [[id number]] To provider: OSVALDO MARTINEZ [[id number]] # of visits: 1 * Diagnostic Imaging (Routine) - Closed Specialty Diagnoses / Procedures Referred By Contfred t Referred To Contact Diagnoses Thyroid nodule Procedures US Soft Tissue Neck Ryann Galdamez PA Phone: tel: fax: Unknown Place of Service fax: Referral ID Status Reason Start Date Expiration Date Visits Re quested Visits Authorized [id number] Closed 11/12/2020 12/12/2021 1 1 Reason for Visit * Reason Comments Follow-up Encounter Details Date Type Department Care Team (Late st Contact Info) Description 11/12/2020 3:30 PM CDT Office Visit [facility] Family Medicine [address] [place] [address] Ryann Galdamez PA [facility] [place] [address] Type 2 diabetes mellitus without complication, without long-term current use of insulin (CMS/HCC) (HCC) (Primary Dx); Carpal tunnel syndrome of left wrist; Obesity (BMI 30-39.9); Thyroid nodule; Anxiety; Sleep disturbance Social History Tobacco Use Types [...] on file 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 Gender Identity Not on file Sexual Orientation Not on file documented as of this encounter Last Filed Vital Signs Vital Sign Reading Time Taken Comments Blood Pressure 140/80 11/12/2020 3:34 PM CDT Pulse 76 11/12/2020 3:34 PM CDT Temperature 36.4 ??C (97.6 ??F) 11/12/2020 3:34 PM CD T Respiratory Rate - - Oxygen Saturation 97% 11/12/2020 3:34 PM CDT Inhaled Oxygen Concentration - - Weight 86.6 kg (191 lb) 11/12/2020 3:34 PM CDT Height 157.5 cm (5' 2.01 ) 11/12/2020 3:34 PM CD T Body Mass Index 34.93 11/12/2020 3:34 PM CDT documented in this encounter Ordered Prescriptions Prescription Sig Dispense Quantity Refills Last Filled Start Date End Date buPROPion XL (WELLBUTRIN XL) 150 mg 24 hr tabletIndications: Anxiety Take 1 tablet (150 mg total) by mouth every morning 30 tablet 1 11/12/2020 glipiZIDE (GLUCOTROL) 5 mg tabletIndications: type 2 diabetes mellitus Take 1 tablet (5 mg total) by mouth 2 (two) times a day before breakfast and lunch 60 tablet 3 11/12/2020 documented in this encounter Progress Notes * Ryann Ayala PA - 11/12/2020 3:30 PM CDT Images from the original note were not included. Chief Complaint Follow-up HPI Here for f/u of niddm. Weighed 188lbs this morning. Eating healthy choice meals, cottage cheese. Has been trying to lose. Taking glipizide 5mg qam and still running in the 190s Left thumb and finger tingling and numb. History of cts surgery left wrist, has also fallen and hasa plate and screws in the left wrist. Anxiety - better decreasing wellbutrin, using prn xanax Thyroid? Voice scratchy in evenings. Left thyroid nodule history and didn't ever get the US as previously ordered. Allergies as of 11/12/2020 - Reviewed 11/12/2020 Allergen Reaction Noted ??? Amlodipine Shortness of breath 07/21/2019 ??? Prasanth inhibitors Cough ??? Citalopram ??? Lisinopril Outpatient Encounter Medications as of 11/12/2020 Medication Sig Dispense Refill ??? acetaminophen (TYLENOL) [...] mouth every morning 30 tablet 1 ??? CALCIUM CARBONATE ORAL Take 600 [...] by mouth nightly as needed ??? [DISCONTINUED] buPROPion XL (WELLBUTRIN XL) 300 mg 24 hr tablet Take 1 tablet (300 mg total) bymouth every morning 30 tablet 1 ??? [DISCONTINUED] glipiZIDE (GLUCOTROL) 5 mg tablet Take 0.5 tablets (2.5 mg total) by mouth daily15 tablet 1 ??? glipiZIDE (GLUCOTROL) 5 mg tablet Take 1 tablet (5 mg total) by mouth 2 (two) times a day before breakfast and lunch 60 tablet 3 ??? [DISCONTINUED] zolpidem (AMBIEN) 5 mg tablet Take 1 tablet (5 mg total) by mouth nightly as needed for sleep 30 tablet 0 No facility-administered encounter medications on file as of 11/12/2020. Review of Systems Constitutional: Negative for fatigue, fever and unexpected weight change. HENT: Positive for voice change. Negative for congestion and trouble swallowing. Respiratory: Negative for cough, chest tightness and shortness of breath. Cardiovascular: Negative for chest pain and palpitations. Gastrointestinal: Negative for abdominal pain. Genitourinary: Negative for difficulty urinating and dysuria. Musculoskeletal: Negative for arthralgias and back pain. Skin: Negative for color change. Neurological: Positive for numbness. Negative for dizziness. Hematological: Does not bruise/bleed easily. Psychiatric/Behavioral: Negative for confusion. The patient is not nervous/anxious. Vitals: 11/12/20 1534 BP: 140/80 BP Location: Left arm Patient Position: Sitting Pulse: 76 Temp: 36.4 ??C (97.6 ??F) SpO2: 97% Weight: 86.6 kg (191 lb) Height: 157.5 cm (5' 2.01 ) Physical Exam Vitals and nursing note reviewed. Constitutional: General: She is not in acute distress. Appearance: Normal appearance. She is not ill-appearing, toxic-appearing or diaphoretic. HENT: Head: Normocephalic and atraumatic. Pulmonary: Effort: Pulmonary effort is normal. Breath sounds: Normal breath sounds. Musculoskeletal: General: No tenderness. Normal range of motion. Cervical back: Normal range of motion and neck supple. No rigidity or tenderness. Comments: Full aprom bilateral wrists, fingers. Median nerve intact bilaterally. Women'S Health Care Nurse Practitioner strength symmetric bilaterally. Negative tinel's and phalen's bilaterally. Lymphadenopathy: Cervical: No cervical adenopathy. Skin: General: Skin is warm. Neurological: General: No focal deficit present. Mental Status: She is alert and oriented to person, place, and time. Psychiatric: Mood and Affect: Mood normal. Behavior: Behavior normal. Thought Content: Thought content normal. Judgment: Judgment normal. Assessment/Plan Diagnoses and all orders for this visit: Type 2 diabetes mellitus without complication, without long-term current use of insulin ([facility]/HCC) (HCC) (E11.9) (Primary) Assessment & Plan: Increase glipizide Orders: - glipiZIDE (GLUCOTROL) 5 mg tablet; Take 1 tablet (5 mg total) by mouth 2 (two) times a day beforebreakfast and lunch Carpal tunnel syndrome of left wrist (G56.02) Assessment & Plan: Advised cockup splint left wrist at hs Advised referral for ortho - she declines at this time Obesity (BMI 30-39.9) (E66.9) Assessment & Plan: Obesity is unchanged. Discussed the patient's BMI. The BMI is above average. BMI management plan is completed. BMI Follow-up includes: nutrition counseling, exercise counseling and education provided. Thyroid nodule (E04.1) Assessment & Plan: Thyroid US Refer to ENT Orders: - US Soft Tissue Neck; Future - Ambulatory referral to ENT; Future Anxiety (F41.9) Assessment & Plan: Decrease wellbutrin Continue prn xanax Orders: - buPROPion XL (WELLBUTRIN XL) 150 mg 24 hr tablet; Take 1 tablet (150 mg total) by mouth every morning Sleep disturbance (G47.9) Assessment & Plan: Increase ambien to 10mg at hs/prn Orders Placed This Encounter ??? US Soft Tissue Neck Standing Status: Future Number of Occurrences: 1 Standing Expiration Date: 11/12/2021 Scheduling Instructions: jyoti Order Specific Question: Where should this order be performed? Answer: External Order [171] ??? Ambulatory referral to ENT Standing Status: Future Standing Expiration Date: 11/12/2021 Referral Priority: Routine Referral Type: Consultation Referral Reason: Specialty Services Required Referral Location: [facility] (All Locations) Referred to Provider: Osvaldo Martinez MD Requested Specialty: Otolaryngology Number of Visits Requested: 1 ??? glipiZIDE (GLUCOTROL) 5 mg tablet Sig: Take 1 tablet (5 mg total) by mouth 2 (two) times a day before breakfast and lunch Dispense: 60 tablet Refill: 3 ??? buPROPion XL (WELLBUTRIN XL) 150 mg 24 hr tablet Sig: Take 1 tablet (150 mg total) by mouth every morning Dispense: 30 tablet Refill: 1 RACHID Jenkins documented in this encounter Miscellaneous Notes * Assessment & Plan Note - Ryann Ayala PA - 11/12/2020 5:12 PM CDT Associated Problem(s): Carpal tunnel syndrome of left wrist (Resolved 03/03/2023) Advised cockup splint left wrist at hs Advised referral for ortho - she declines at this time * Assessment & Plan Note - Ryann Ayala PA - 11/12/2020 5:12 PM CDT Associated Problem(s): AYAD on CPAP Increase ambien to 10mg at hs/prn * Assessment & Plan Note - Ryann Ayala PA - 11/12/2020 5:11 PM CDT Associated Problem(s): Anxiety (Resolved 03/03/2023) Decrease wellbutrin Continue prn xanax * Assessment & Plan Note - Ryann Ayala PA - 11/12/2020 5:11 PM CDT Associated Problem(s): Thyroid nodule Thyroid US Refer to ENT * Assessment & Plan Note - Ryann Ayala PA - 11/12/2020 5:11 PM CDT Associated Problem(s): Type 2 diabetes mellitus without complications (CMS/HCC) (HCC) Increase glipizide * Assessment & Plan Note - Ingrid Milligan MA - 11/12/2020 3:36 PM CDTAssociated Problem(s): BMI 30.0-30.9,adult (Resolved 10/09/2022) Obesity is unchanged. Discussed the patient's BMI. The BMI is above average. BMI management plan is completed. BMI Follow-up includes: nutrition counseling, exercise counseling and education provided. documented in this encounter Plan of Treatment Scheduled Referrals Name Type Priority Associated Diagnoses Order Schedule Ambulatory referral to ENT Outpatient Referral Routine Thyroid nodule Expected: 11/26/2020 (Approximate), Expires: 11/12/2021 documented as of this encounter Procedures Procedure Name Priority Date/Time Associated Diagnosis Comments US SOFT TISSUE HEAD NECK Schedule Routine, Read Routine (OP Routine) 11/20/2020 Thyroid nodule documented in this encounter Results * US Soft Tissue Neck (11/20/2020) Anatomical Region Laterality Modality Head and Neck N/A Ultrasound 11/20/2020 Ryann RASHID IMG US PROCEDURES Final Re sult documented in this encounter Visit Diagnoses Diagnosis Type 2 diabetes mellitus without complication, without long-term current use of insulin ([facility]/HCC) (HCC)- Primary Carpal tunnel syndrome of left wrist Obesity (BMI 30-39.9) Thyroid nodule Nontoxic uninodular goiter Anxiety Anxiety state, unspecified Sleep disturbance Unspecified sleep disturbance documented in this encounter Discontinued Medications Medication Sig Discontinue Reason Start Date End Da te glipiZIDE (GLUCOTROL) 5 mg tabletIndications:type 2 diabetes mellitus Take 0.5 tablets (2.5 mg total) by mouth daily 10/29/2020 11/12/2020 buPROPion XL (WELLBUTRIN XL) 300 mg 24 hr tablet Take 1 tablet (300 mg total) by mouth every morning 10/29/2020 11/12/2020 zolpidem (AMBIEN) 5 mg tabletIndications:Sleep- Onset Insomnia Take 1 tablet (5 mg total) by mouth nightly as needed for sleep 09/18/2020 11/12/2020 documented as of this encounter Historical Medications * This list may reflect changes made after this encounter. zolpidem (AMBIEN) 10 mg tablet Take 10 mg by mouth nightly as needed 01/04/2021 added in this encounter Care Teams Automotive Electrician Helper Relationship Specialty Start Date End Date Ryann Galdamez PA PCP - General Hoop Coiler 07/16/20 04/01/21 documented as of this encounter
--- OUTSIDE RECORDS SUMMARY | 2024-03-13 01:13 | XMS_ITS | Encounter Summary ---
Author Organization [facility] Address [address] [place] [address] Care Team Providers Care Business And Services Instructor Name Role Phone Ryann Galdamez Primary Care Provider [phone]- [phone] Reason for Visit * Reason Onset Date Comments Med Refill 10/25/2020 Encounter Details Date Type Department Care Team (Late st Contact Info) Description 10/25/2020 Telephone [facility] Family Medicine [address] [place] [address] Ryann Galdamez PA [facility] [place] [address] Med Refill Social History Tobacco [...] on file 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 * Telephone Encounter - Ingrid Milligan MA - 10/25/2020 4:50 PM CDT Called and left voicemail for patient to contact the office. * Telephone Encounter - Linda Frost PA - 10/25/2020 4:47 PM CDT Call and see if patient has 4 more januvia to hold her over until her 10/29 visit with Ryann--- If she does I will hold off and let Ryann walk her thru the change. * Telephone Encounter - Suki Giraldo - 10/25/2020 10:25 AM CDT Increase januvia to 50mg every day We discussed discontinuing and changing to glipizide when due for refill - januvia is too costly Copied from 10/16 OV Note Patient said that she is due for the refill Last OV 10/16/20 Next OV 10/29/20 ?? documented in this encounter Plan of Treatment Not on file documented as of this encounter Visit Diagnoses Not on filedocumented in this encounter Care Teams Business And Services Instructor Relationship Specialty Start Date End Date Ryann Galdamez PA PCP - General Hepatology Physician 07/16/20 04/01/21 documented as of this encounter
--- OUTSIDE RECORDS SUMMARY | 2024-03-13 01:13 | XMS_ITS | Encounter Summary ---
Author Organization [facility] Address [address] [place] [address] Care Team Providers Care Lip And Gate Builder Name Role Phone Ryann Galdamez Primary Care Provider +1- [phone] Encounter Details Date Type Department Care Team (Late st Contact Info) Description 09/13/2020 11:15 AM CDT - 09/13/2020 1:00 PM CDT Surgery [facility] [address] [place] [address] Norma Conrad DO [address] [place], [place] [id number] LEFT HEART CATHETERIZATION WITH CORONARY ANGIOGRAPHY AND WITH OR WITHOUT LEFT VENTRICULOGRAM [id number] Surgery Details Date/Time Status Location OR Service Patient Class Case Class Case Type Trauma Case? 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 Gender Identity Not on file Sexual Orientation Not on file documented as of this encounter Last Filed Vital Signs Vital Sign Reading Time Taken Comments Blood Pressure 120/79 09/13/2020 12:50 PM CDT Pulse 75 09/13/2020 12:50 PM CDT Temperature 36.8 ??C (98.2 ??F) 09/13/2020 10:14 AM C DT Respiratory Rate 13 09/13/2020 12:50 PM CDT Oxygen Saturation 95% 09/13/2020 12:50 PM CDT Inhaled Oxygen Concentration - - Weight 94.1 kg (207 lb 7.3 oz) 09/13/2020 10:14 AM CDT Height - - Body Mass Index 37.93 09/04/2020 10:52 AM CDT documented in this encounter Discharge Instructions * Discharge Instructions* Sumaya [place], ARMANI - 09/13/2020 11:28 AM CDT Discharge Instructions [...] M-F call our Outpatient Nurse Coordinators at [phone]. If you need to speak to someone after 5pm please call [facility] at [phone] and ask the wire mill operator topage the Cardiac Melter Operator Fellow long term care phlebotomist. documented in this encounter Medications at Time [...] mg total) by mouth daily 30 tablet 08/29/2020 05/29/2021 buPROPion XL (WELLBUTRIN XL) 150 mg 24 hr tablet Take 150 mg by mouth daily 10/29/2020 carvediloL (COREG) 25 mg tablet TAKE 1 TABLET BY MOUTH TWICE A DAY WITH FOOD 180 tablet 07/02/2020 10/01/2020 dilTIAZem CD/XR/XT (CARDIZEM CD,DILACOR XR) 120 mg 24 hr capsule Take 1 capsule (120 mg total) by mouth daily 30 capsule 11/14/2019 10/25/2020 furosemide (LASIX) 40 mg tablet Take 1 tablet (40 mg total) by mouth daily 30 tablet 08/06/2020 09/19/2020 isosorbide mononitrate ER (IMDUR) 30 mg 24 hr tablet Take 1 tablet (30 mg total) by mouth daily 15 tablet 08/29/2020 11/16/2020 levothyroxine (SYNTHROID) 50 mcg tablet [...] in this encounter Nursing Notes * Sumaya [place] RN - 09/13/2020 2:56 PM CDT Pt ambulated [...] negative Sedation Plan: Moderate Braulio Orourke MD Bi Data Modeler [facility] Cosigned by Norma Conrad DO at 09/13/2020 10:16 AM CDT * Pre-Cardiac Catheterization Workup and H&P - Jadiel Brice RN - 09/11/2020 3:31 PM CDT PRE-CARDIAC CATHETERIZATION WORKUP Patient Name: Prema Pearce Patient Patient : 1940 Date of Procedure: 09/13/2020 ORDERING AREA FIELD WORKER: Surgeon(s): Sobia RussoBlue Line OperatorMD Procedure(s): LEFT HEART CATHETERIZATION WITH CORONARY ANGIOGRAPHY AND WITH OR WITHOUT LEFT VENTRICULOGRAM [id number] Requested Diagnostic: [] Coronary Angiograms Only [x] [...] May 2019. Abnormal stress test, referred for LHC. ALLERGIES: Amlodipine, Prasanth inhibitors, Citalopram, and Lisinopril [...] Yes [] No [] Contraindicated Indications for Melter Operator visit (Select all that apply): [] ACS [...] ESRD [] Dialysis [] HD []PD: Prior HI: [] Yes [x] No If Yes, Most Recent HI Date: Tobacco Use Social History Tobacco Use [...] 0.73 0.60 - 0.93 mg/dL eGFR NON-AFR. EMIRATI 78 > OR = 60 mL/min/1.73m2 EGFR [...] Yes, Newly Diagnosed: [] Yes [] No NYHS Class: [] Class I [] Class II [...] and Assessment Completed by: Braulio Orourke MD Bi Data Modeler [facility] Cosigned by Norma [...] CDT Cardiac Catheterization Report, Left Heart Facility: [facility] Referring Physician: Cathleen Walker MD [...] local anesthesia; modified Seldinger technique; micropuncture technique; 5-Tanzanian 12 cm sheath, right femoral artery. ?? [...] There is no significant obstruction of the [place] coronary arteries. ?? There is, however, significant tortuosity of the coronary vessels, suggestive of hypertensive heart disease. THERAPEUTIC RECOMMENDATIONS Findings of the catheterization were discussed with the patient and will be conveyed to the referring physician who will determine the patient's future therapy and follow-up. ?? Conscious sedation note: I provided direct atob-ki-idpl monitoring of conscious sedation, which was administered by an independent, trained nurse using fentanyl and midazolam for 28 minutes. Norma Conrad DO [employer] Division of Cardiology [facility] Cathleen Mccormick MD CV CARDIAC CATH PROCEDURES Final Result * (ABNORMAL) CBC without differential (09/13/2020 10:54 AM CDT) WBC 6.1 3.8 - 9.9 K/cumm [facility] Hgb 11.1(L) 11.9 - 15.5 g/dL [facility] Hct 35.5(L) 35.6 - 45.5 % [facility] Plt 254 150 - 400 K/cumm [facility] MPV 10.3 9.1 - 12.3 fL [facility] RBC 3.84(L) 3.90 - 5.20 M/cumm [facility] MCV 92.4 81.3 - 96.4 fL [facility] MCH 28.9 27.1 - 33.3 pg [facility] MCHC 31.3(L) 32.3 - 35.7 g/dL [facility] RDW CV 15.7(H) 11.1 - 14.9 % [facility] RDW SD 53.1(H) 35.7 - 48.1 fL [facility] NRBC abs 0.00 0.00 - 0.01 K/cumm [facility] Blood specimen (specimen) 09/13/2020 10:54 AM CDT 09/13/2020 11:05 AM CDT Narrative [facility] - 09/13/2020 11:15 AM CDT To be drawn after hydration bolus complete Norma Conrad DO LAB BLOOD ORDERABLE S Final Result [facility] Department [place] [address] * POCT glucose (09/13/2020 9:54 AM CDT) Pathologist [facility] Glucose, POC 162 70 - 199 mg/dL [facility] Blood specimen (specimen) 09/13/2020 9:54 AM CDT 09/13/2020 9:54 AM CDT Cathleen Mccormick MD LAB POCT ORDERAB LES - DEVICE Final Result [facility] Department [place] [address] * ECG 12 lead (09/13/2020 9:50 AM CDT) [facility] Ventricular Rate EKG/Min 76 BPM [facility] Atrial Rate 72 BPM [facility] QRS-Interval (MSEC) 106 ms [facility] QT-Interval (MSEC) 386 ms [facility] QTc 434 ms [facility] R [place] 53 degrees [facility] T [place] 19 degrees [facility] Diagnosis Atrial fibrillation Nonspecific T wave abnormality Abnormal ECG When compared with ECG of 29-MAY-2019 21:27, anterior T wave abnormalities have improved Confirmed by BRAULIO HAMM M.D ([id number]) on 09/13/2020 4:08:12 PM [facility] 09/13/2020 9:50 AM CDT 09/13/2020 4:08 PM CDT us Norma Conrad DO ECG ORDERABLES Fin al Result Performing Organization Address [facility] Co de Phone Number [facility] documented in this encounter Visit Diagnoses Diagnosis [...] Rate Site fentaNYL (SUBLIMAZE) preservative free injection As needed, Starting on Yuliana 09/13/20 at 1044, Intra-Procedure (CV) Given 09/13/2020 11:07 AM CDT 12.5 mcg Given 09/13/2020 10:44 AM CDT 12.5 mcg ioversoL (OPTIRAY 350) injection As needed, Starting on Yuliana 09/13/20 at 1111, Intra-Procedure (CV) Given 09/13/2020 11:11 AM CDT 75 mL midazolam (VERSED) 1 mg/mL preservative free injection Administer over 2 Minutes, As needed, Starting on Yuliana 09/13/20 at 1044, Intra-Procedure (CV) Given 09/13/2020 11:07 AM CDT 0.5 mg Given 09/13/2020 10:44 AM CDT 0.5 mg sodium chloride 0.9% bolus 284 mL 284 [...] before and after each use. , Indications: FlushingIndications:Flushing sodium chloride 0.9% infusion 1 mL/kg/hr ? [...] Ordered Date acetaminophen (TYLENOL) tablet 650 mg 03/2020 sodium chloride 0.9% flush 0.5-20 mL 03/2020 sodium chloride 0.9% infusion 1 09/13/2020 CORE MEASURES Count Last Ordered Date First Ord ered Date REASON FOR NO VTE PROPHYLAXIS AT ADMISSION 1 09/13/2020 documented in this encounter Care Teams Lip And Gate Builder Relationship Specialty Start Date End Date Ryann Galdamez PA PCP - General Automotive Parts Coordinator 07/16/20 04/01/21 documented as of this encounter
--- OUTSIDE RECORDS SUMMARY | 2024-03-13 01:13 | XMS_ITS | Encounter Summary ---
Author Organization [facility] Healthcare Address [address] [place] [address] Care Team Providers Care Clerical Receptionist Name Role Phone Ryann Galdamez Primary Care Provider [phone] Ryann Galdamez Primary Care Provider [phone]- [phone] Chris Mendes MD Unavailable [phone] Keli Orozco RN Unavailable Unavailable Alysa Newton RN Unavailable [phone] Cuba Larsen MD Primary Care Provider [phone] Keli Orozco RN Unavailable Unavailable Keli Orozco RN Unavailable Unavailable Tami Mcknight RN Unavailable Unavailab le Encounter Details Date Type Department Care Team (Late st Contact Info) Description 08/17/2020 Telephone [facility] [address] [place] [address] Araceli Arita, RT Social History Tobacco Use Types Packs/Day Years Used Date Smoking Tobacco: Never Smokeless Tobacco: Never Alcohol Use Standard Drinks/Week Comments Yes 0 (1 standard drink = 0.6 oz pur e alcohol) 1/mo PHQ-2 Answer Date Recorded PHQ-2 Total Score 6 08/21/2020 Comments No Sex and Gender Information Value Date Recorded Sex Assigned at Not on file 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 Gender Identity Not on file Sexual Orientation Not on file documented as of this encounter Plan of Treatment Not on file documented as of this encounter Visit Diagnoses Not on filedocumented in this encounter Care Teams Clerical Receptionist Relationship Specialty Start Date End Date Ryann Galdamez PA PCP - General Airline Hostess 07/16/20 04/01/21 Ryann Galdamez PA PCP - General Airline Hostess 04/02/21 01/22/22 Cuba Larsen MD [address] [address] PCP - General Family Medicine 01/23/22 Chris Mendes MD Referring Physician Cardiology 12/23/21 Keli Orozco, shop firer/firemanDirector Of Advertising Sales Cardiology 12/23/21 04/15/23 Alysa Newton, RN [address] [address] Director Of Advertising Sales Cardiology 12/23/21 Keli Orozco, burr bench hand Failure Coordinator 04/02/23 4 Keli Orozco, burr bench hand Failure Coordinator Transplant 04/15/23 Tami Mcknight RN Heart Failure Coordinator Cardiology 09/14/23 documented as of this encounter
--- OUTSIDE RECORDS SUMMARY | 2024-03-13 01:13 | XMS_ITS | Encounter Summary ---
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
--- OUTSIDE RECORDS SUMMARY | 2024-03-13 01:13 | XMS_ITS | Encounter Summary ---
Author Organization [facility] Address [address] [place] [address] Care Team Providers Care Interactive Media Project Manager Name Role Phone Ryann Galdamez Primary Care Provider [phone] Reason for Visit * Reason Onset Date Comments Medication questions 11/01/2020 Encounter Details Date Type Department Care Team (Late st Contact Info) Description 11/01/2020 Telephone [facility] Family Medicine [address] [place] [address] Ryann Galdamez [place] [address] Medication questions Social History Tobacco Use Types Packs/Day Years [...] file 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 She is not having any chest pain, palpitations, or ADAMS. She reports she thinks it's her nerves. Pulse was 70, sugar 181 this morning. She thinks that it's the increase in the wellbutrin. She is going to decrease to 150mg XL wellbutrin starting tomorrow. She agrees to report to the er if new symptoms develop or condition worsens. * Telephone Encounter - Ryann Ayala PA - 11/01/2020 12:14 PM CDT I called patient and left message for call back. * Telephone Encounter - Raiza Desir MA - 11/01/2020 9:58 AM CDT Patient would like a call back from provider. She wants to talk to her regarding her medication. She states that her Wellbutrin was increased from 150 mg to 300 mg and she has been feeling anxious and like she is going to jump out of her skin. She also says it could be from her thyroid medication. It was changed from generic to brand name. She wants the next script sent in as generic- Levothyroxine. documented in this encounter Plan of Treatment Not on file documented as of this encounter Visit Diagnoses Not on filedocumented in this encounter Care Teams Interactive Media Project Manager Relationship Specialty Start Date End Date Ryann Galdamez PA PCP - General Health Technician Hearing 07/16/20 04/01/21 documented as of this encounter
--- OUTSIDE RECORDS SUMMARY | 2024-03-13 01:14 | XMS_ITS | Encounter Summary ---
Author Organization [facility] Address [address] [place] [address] Phone Care Team Providers Care Concession Worker Name Role Phone Ryann Galdamez Primary Care Provider [phone] Encounter Details Date Type Department Care Team (Late st Contact Info) Description 08/08/2020 Telephone [facility] Cardiology [address] Advanced Medicine [address]th [place] [address] [place] [address] Cathleen Walker MD [address] [facility] [address] [place] [address] Social History Tobacco Use Types [...] on file 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 Gender Identity Not on file Sexual Orientation Not on file documented as of this encounter Miscellaneous Notes * Telephone Encounter - Paulina Bright RN - 08/08/2020 3:19 PM CDT Spoke w/ pt She will cont meds as listed and discussed * Telephone Encounter - Cathleen Walker MD - 08/08/2020 2:11 PM CDT No additional changes for now * Telephone Encounter - Paulina Bright RN - 08/08/2020 2:05 PM CDT Update You saw pt on Thursday Spoke w/ pt She went over med list w/ me She corrected and said that the lasix you increased to 40mg daily, she was already taking that dose She started the robert She takes all card meds as listed except the dilt Per notes, pt was started on this and she d/w me back in October for her monitor results She has never taken, but will start now at 120mg daily Any changes needed? * Telephone Encounter - Lili Zelaya - 08/08/2020 11:05 AM CDT Aaron Pt calling to speak with a nurse, she says she thinks she has her medications mixed up and would like to straighten it out with a nurse documented in this encounter Plan of Treatment Not on file documented as of this encounter Visit Diagnoses Not on filedocumented in this encounter Care Teams Concession Worker Relationship Specialty Start Date End Date Ryann Galdamez PA PCP - General Cullet Washer 07/16/20 04/01/21 documented as of this encounter
--- OUTSIDE RECORDS SUMMARY | 2024-03-13 01:14 | XMS_ITS | Encounter Summary ---
Author Organization [facility] Address [address] [place] [address] Care Team Providers Care Topology Professor Name Role Phone Hermila Calhoun MD, Wilber Martinez Primary Care Provider Ryann Galdamez Primary Care Provider [phone] Encounter Details Date Type Department Care Team (Late st Contact Info) Description 08/09/[address] 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 Gender Identity Not on file Sexual Orientation Not on file documented as of this encounter Plan of Treatment Not on file documented as of this encounter Procedures Procedure Name Priority Date/Time Associated Diagnosis Comments SCAN - RADIOLOGY/IMAGING 08/09/2019 documented in this encounter Results * SCAN - RADIOLOGY/IMAGING (08/09/2019) Anatomical Region Laterality Modality Other us Provider Scanning Edited Result - Final documented in this encounter Visit Diagnoses Not on filedocumented in this encounter Care Teams Topology Professor Relationship Specialty Start Date End Date Wilber Cleaning Jr., MD [address] [place] [address] PCP - General 07/03/16 07/15/20 Ryann Galdamez PA [address] [place] [address] PCP - General Primary Care Physician 07/16/20 04/01/21 documented as of this encounter
--- OUTSIDE RECORDS SUMMARY | 2024-03-13 01:14 | XMS_ITS | Encounter Summary ---
Author Organization [facility] Address [address] [place] [address] Phone Care Team Providers Care Project Production Engineer Name Role Phone Hermila Calhoun MD, Wilber Martinez Primary Care Provider Encounter Details Date Type Department Care Team (Late st Contact Info) Description 01/13/2020 Orders Only [facility] Cardiology [address] [facility] Advanced Medicine [address]th [place] [address] [place] [address] Cathleen Walker MD [address] [facility] [address] [place] [address] Social History Tobacco Use Types Packs/Day Years Used Date Smoking Tobacco: Never Smokeless Tobacco: Never Alcohol Use Standard Drinks/Week Comments Yes 0 (1 standard drink = 0.6 oz pur e alcohol) 1/mo Comments No Sex and Gender Information Value Date Recorded Sex Assigned at Not on file 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 Gender Identity Not on file Sexual Orientation Not on file documented as of this encounter Plan of Treatment Not on file documented as of this encounter Visit Diagnoses Not on filedocumented in this encounter Discontinued Medications Medication Sig Discontinue Reason Start Date End Da te aspirin 81 mg chewable tablet Take 1 tablet (81 mg total) by mouth daily 06/14/2019 01/13/2020 documented as of this encounter Care Teams Project Production Engineer Relationship Specialty Start Date End Date Wilber Cleaning Jr., MD [address] [place] [address] PCP - General 07/03/16 07/15/20 documented as of this encounter
--- OUTSIDE RECORDS SUMMARY | 2024-03-13 01:14 | XMS_ITS | Encounter Summary ---
Author Organization [facility] Address [address] [place] [address] Phone Care Team Providers Care Sales Agent Protective Service Name Role Phone Hermila Calhoun MD, Wilber A. Primary Care Provider Encounter Details Date Type Department Care Team (Late st Contact Info) Description 07/01/2019 Telephone [facility] Cardiology [address] [facility] Advanced Medicine 8th [place] [address] [place] [address] Cathleen Walker MD [address] [facility] [address] [place], [place] [id number] Social History Tobacco Use Types Packs/Day Years Used Date Smoking Tobacco: Never Smokeless Tobacco: Never Alcohol Use Standard Drinks/Week Comments Yes 0 (1 standard drink = 0.6 oz pur e alcohol) 1/mo Comments No Sex and Gender Information Value Date Recorded Sex Assigned at Not on file 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 No / Unsure 06/08/2019 4:00 PM CDT documented as of this encounter Miscellaneous Notes * Telephone Encounter - Paulina Bright, RN - 07/01/2019 9:06 AM CDT Spoke w/ pt D/w pt the message and recommendations from yesterday to increase coreg to 12.5mg BID Monitor and call w/ update next week * Telephone Encounter - Alise Anderson - 07/01/2019 9:00 AM CDT ABE PLEASE CALL REGARDING CARVEDILOL. STATES WANTS TO MAKE SURE HAS EVERYTHING STRAIGHT. documented in this encounter Plan of Treatment Not on file documented as of this encounter Visit Diagnoses Not on filedocumented in this encounter Care Teams Sales Agent Protective Service Relationship Specialty Start Date End Date Wilber Cleaning Jr., MD [address] [place] [address] PCP - General 07/03/16 07/15/20 documented as of this encounter
--- OUTSIDE RECORDS SUMMARY | 2024-03-13 01:14 | XMS_ITS | Encounter Summary ---
Author Organization [facility] Address [address] [place] [address] Phone Care Team Providers Care Correctional Maintenance Technician Name Role Phone Hermila Calhoun MD, Wilber A. Primary Care Provider Reason for Visit * Reason Onset Date Comments Appointment 11/23/2019 Encounter Details Date Type Department Care Team (Late st Contact Info) Description 11/23/[address] 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 * Telephone Encounter - Nadiya Craft - 12/05/2019 10:49 AM CDT Pt called back on 11/30/19 and rescheduled her 12/19/19 appt to a 12/06/[address] Walker. * Telephone Encounter - Dionte Mcclure - 11/30/2019 9:23 AM CDT LMOR @ [phone] WITH APPT DETAILS, AWAITING CB TO CONFIRM * Telephone Encounter - Lina Juarez - 11/23/2019 9:47 AM CDT Please call and make pt aware of apt 12/18@11:50am. ----- Message from Paulina Bright RN sent at 11/14/2019 1:12 PM CDT ----- Please see request to move appt up and get records Thanks! ----- Message ----- From: Cathleen Garcia MD Sent: 11/14/2019 1:04 PM CDT To: Paulina Bright RN, Dolores Moreau RN Yes, please move up appointment within 4-8 weeks. Can we also get records from her PCP documented in this encounter Plan of Treatment Not on file documented as of this encounter Visit Diagnoses Not on filedocumented in this encounter Care Teams Correctional Maintenance Technician Relationship Specialty Start Date End Date Wilber Cleaning Jr., MD [address] [place] [address] PCP - General 07/03/16 07/15/20 documented as of this encounter
--- OUTSIDE RECORDS SUMMARY | 2024-03-13 01:14 | XMS_ITS | Encounter Summary ---
Author Organization [facility] Address [address] [place] [address] Phone Care Team Providers Care Coating Machine Operator Name Role Phone Hermila Calhoun MD, Wilber Martinez Primary Care Provider Reason for Visit * Reason Comments Post-op Encounter Details Date Type Department Care Team (Late st Contact Info) Description 07/21/2019 10:00 AM CDT Office Visit 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 Castro) Date: 05/22/19 Surgery: Left distal femoral replacement Date: 05/25/19 This patient is eight weeks status post left distal femoral replacement for open distal femur fracture. She is home now. She is working with home PT. EXAM: Awake, alert, oriented x 3 No acute distress Breathing regular and unlabored Incision healed Left knee ROM 0-90 RADIOGRAPHS: Radiographs obtained today demonstrate a cemented left distal femoral replacement. IMPRESSION: Eight weeks status post above procedure, doing well PLAN: She should continue physical therapy and work on getting as much flexion as possible. She will follow up in 6-8 weeks, no x-rays needed. Kaveh Charles M.D. Vp Project, Orthopaedic Surgery documented in this encounter Plan of Treatment Not on file documented as of this encounter Visit Diagnoses Diagnosis 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- Primary documented in this encounter Discontinued Medications Medication Sig Discontinue Reason Start Date End Da te Ozempic 0.25 mg or 0.5 mg(2 mg/1.5 mL) pen injector Inject 0.25 mg under the skin once a week Allergic response 05/20/2019 07/21/2019 documented as of this encounter Historical Medications * This list may reflect changes made after this encounter. acetaminophen (TYLENOL) 500 mg tablet Take 2 tablets (1,000 mg total) by mouth as needed for pain When Needed 10/09/2022 added in this encounter Care Teams Coating Machine Operator Relationship Specialty Start Date End Date Wilber Cleaning Jr., MD [address] [place] [address] PCP - General 07/03/16 07/15/20 documented as of this encounter
--- OUTSIDE RECORDS SUMMARY | 2024-03-13 01:14 | XMS_ITS | Encounter Summary ---
Author Organization [facility] Address [address] [place] [address] Phone Care Team Providers Care Fourdrinier Machine Operator Name Role Phone Hermila Calhoun MD, Wilber Martinez Primary Care Provider Reason for Visit * (Routine) - Closed Specialty Diagnoses / Procedures Referred By Contac t Referred To Contact Diagnoses Atrial fibrillation (CMS/HCC) (HCC) Procedures Extended/Retirement Holter Patch Cassandra Fish MD Phone: tel: fax: [address] [address] Referral ID Status Reason Start Date Expiration Date Visits Re quested Visits Authorized [id number] Closed 10/07/2019 11/05/2020 1 1 Encounter Details Date Type Department Care Team (Latest Contact Info) Description 10/07/2019 12:00 PM CDT Ancillary Procedure [facility] Cardiology [address] [place] [address] Medicine 8th [place] [address] [place] [address] Atrial fibrillation (CMS/HCC) Social History Tobacco Use Types Packs/Day Years Used Date Smoking Tobacco: Never Smokeless Tobacco: Never Alcohol Use Standard Drinks/Week Comments Yes 0 (1 standard drink = 0.6 oz pur e alcohol) 1/mo Comments No Sex and Gender Information Value Date Recorded Sex Assigned at Not on file 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 Gender Identity Not on file Sexual Orientation Not on file documented as of this encounter Plan of Treatment Not on file documented as of this encounter Procedures Procedure Name Priority Date/Time Associated Diagnosis Comments EXTENDED/HALF-WAY HOLTER PATCH Routine 10/07/2019 12:00 PM CDT Atrial fibrillation (CMS/HCC) documented in this encounter Results * Extended/Retirement Holter Patch (10/07/2019 12:00 PM CDT) Anatomical Region Laterality Modality Electrocardiogra phy 10/07/2019 12:0 0 PM CDT Narrative 10/27/2019 11:19 AM CDT Patient name: Prema Pearce Date of test: 10/07/2019 Type of Test: [facility] #: 0 ?Location: [facility] Heart and Vascular : 1940 ??Age: 79 ??Sex: F Ref Physician(s): CASSANDRA FISH MD Interpreted by: Frank Horn MD Hook-Up Tech: Mary Jane Cortes Reason for Test: Hook-up Tech: Mary Jane Cortes Monitor Serial#: [id number] Case#: [id number] Diary Instruction: Yes Hook-up Tech Comment: Date Time Hooked-up: 10/07/2019 00:00:00 Monitor Returned: 10/27/2019 Recording Started: 10/14/2019 09:00:40 Recording Ended: 10/21/2019 09:00:40 Test Duration (hrs:min): 168:00 Period Analyzed (hrs:min): 129:29 Quality: STATISTICS: Events: 0 Total QRS: 863615 Vent. Beats: 172 Supravent. Beats: 0 Avg HR: 89 Min HR: 59 at 10/16/2019 07:28:00 Max HR: 138 at 10/14/2019 09:46:00 Tachycardia (>100bpm): 248 episodes 240 min Bradycardia (<59bpm): 0 episodes 0 min Paced Beats: 0% VERTICULAR EVENTS: Isolated: 172 Bi/Trigeminy: 0/0 Couplets: 0 Total Runs: 0 Beats: Longest: 0 beats 0 bpm at Slowest: 0 beats 0 bpm at Fastest: 0 beats 0 bpm at SPRAVENTRICULAR EVENTS: Isolated: 0 Couplets: 0 Total Runs: 0 Beats: Longest: 0 beats 0 bpm at Slowest: 0 beats 0 bpm at Fastest: 0 beats 0 bpm at RR/PAUSES: Min: ?? msec at Max: ?? msec at Total Pauses (>3sec): 0 Longest Pauses: 0 sec at Afib/Aflutter: Afib: 1 episodes 05860 min Maximum: 138 bpm Minimum: 59 bpm SCANNING SUMMARY: : There were 300413 QRS complexes detected. ??Of these, there were 172(<1%) ventricular ectopic beats. ??The average heart rate was 89 bpm. ??The heart rate ranged from 59 bpm to 138 bpm. ??The R-R ranged from 240 msec to 1940 msec. ??There were 248 sustained Tachycardia Episodes with total duration 240.5(3.1%) minutes. The fastest tachy was 118 bpm. The longest tachy was 8 minutes. ??There was 1 Afib Episode with total duration 22913.5(100%) minutes with Max: 138 bpm , Min: 59 bpm. and Av bpm. The longest Afib was 78355.5 minutes. The AF [place] was 100% with 0%<59 bpm and 13%>100 bpm. ?? Preliminary ekg technician interpretation: Sustained atrial fibrillation with occurrences of RVR No diary events entered INTERPRETATION: : The predominant rhythm was atrial fibrillation with moderate to rapid ventricular response, average HR 89 bpm, range 59-138 bpm; the longest RR interval was 1.94 seconds. ?? Rare isolated VPDs. No symptoms were reported. ?? This study was interpreted by Frank Horn MD Confirmed on ??10/27/2019 - 18:20:15 by Frank Horn MD I have personally reviewed and interpreted this study. Procedure Note Frank Horn MD - 11/01/2019 Patient name: Prema Pearce Date of test: 10/07/2019 Type of Test: [facility] #: 0 Location: [facility] Heart and Vascular : 1940 Age: 79 Sex: F Ref Physician(s): CASSANDRA FISH MD Interpreted by: Frank Horn MD Hook-Up Tech: [employer] Reason for Test: Hook-up Tech: [employer] Monitor Serial#: [id number] Case#: [id number] Diary Instruction: Yes Hook-up Tech Comment: Date Time Hooked-up: 10/07/2019 00:00:00 Monitor Returned: 10/27/2019 Recording Started: 10/14/2019 09:00:40 Recording Ended: 10/21/2019 09:00:40 Test Duration (hrs:min): 168:00 Period Analyzed (hrs:min): 129:29 Quality: STATISTICS: Events: 0 Total QRS: 097949 Vent. Beats: 172 Supravent. Beats: 0 Avg HR: 89 Min HR: 59 at 10/16/2019 07:28:00 Max HR: 138 at 10/14/2019 09:46:00 Tachycardia (>100bpm): 248 episodes 240 min Bradycardia (<59bpm): 0 episodes 0 min Paced Beats: 0% VERTICULAR EVENTS: Isolated: 172 Bi/Trigeminy: 0/0 Couplets: 0 Total Runs: 0 Beats: Longest: 0 beats 0 bpm at Slowest: 0 beats 0 bpm at Fastest: 0 beats 0 bpm at SPRAVENTRICULAR EVENTS: Isolated: 0 Couplets: 0 Total Runs: 0 Beats: Longest: 0 beats 0 bpm at Slowest: 0 beats 0 bpm at Fastest: 0 beats 0 bpm at RR/PAUSES: Min: msec at Max: msec at Total Pauses (>3sec): 0 Longest Pauses: 0 sec at Afib/Aflutter: Afib: 1 episodes 55263 min Maximum: 138 bpm Minimum: 59 bpm SCANNING SUMMARY: : There were 038980 QRS complexes detected. Of these, there were 172(<1%) ventricular ectopic beats. The average heart rate was 89 bpm. The heart rate ranged from 59 bpm to 138 bpm. The R-R ranged from 240 msec to 1940 msec. There were 248 sustained Tachycardia Episodes with total duration 240.5(3.1%) minutes. The fastest tachy was 118 bpm. The longest tachy was 8 minutes. There was 1 Afib Episode with total duration 48533.5(100%) minutes with Max: 138 bpm , Min: 59 bpm. and Av bpm. The longest Afib was 11452.5 minutes. The AF [place] was 100% with 0%<59 bpm and 13%>100 bpm. Preliminary ekg technician interpretation: Sustained atrial fibrillation with occurrences of RVR No diary events entered INTERPRETATION: : The predominant rhythm was atrial fibrillation with moderate to rapid ventricular response, average HR 89 bpm, range 59-138 bpm; the longest RR interval was 1.94 seconds. Rare isolated VPDs. No symptoms were reported. This study was interpreted by Frank Horn MD Confirmed on 10/27/2019 - 18:20:15 by Frank Horn MD I have personally reviewed and interpreted this study. Cassandra Mccormick MD CV CARDIAC SERVI EDIN PROCEDURES Edited documented in this encounter Visit Diagnoses Diagnosis Atrial fibrillation (CMS/HCC) (HCC) Atrial fibrillation documented in this encounter Care Teams Fourdrinier Machine Operator Relationship Specialty Start Date End Date Wilber Cleaning Jr., MD [facility] [place] [address] PCP - General 07/03/16 07/15/20 documented as of this encounter
--- OUTSIDE RECORDS SUMMARY | 2024-03-13 01:14 | XMS_ITS | Encounter Summary ---
Author Organization [facility] Address [address] [place] [address] Phone Care Team Providers Care Bark Tanner Name Role Phone Hermila Calhoun MD, Wilber Martinez Primary Care Provider Ryann Galdamez Primary Care Provider [phone] Ryann Galdamez Primary Care Provider [phone] Chris Mendes MD Unavailable Keli Orozco RN Unavailable Unavailable Alysa Newton RN Unavailable [phone] Cuba Larsen MD Primary Care Provider [phone] Keli Orozco RN Unavailable Unavailable Keli Orozco RN Unavailable Unavailable Tami Mcknight RN Unavailable Unavailab le Encounter Details Date Type Department Care Team (Late st Contact Info) Description 06/13/2019 Telephone [facility] Cardiology [address] [facility] 8th [place] [address] [place] [address] Cathleen Walker MD [address] [facility] [address] [place] [address] Social History Tobacco Use Types Packs/Day Years Used Date Smoking Tobacco: Never Smokeless Tobacco: Never Alcohol Use Standard Drinks/Week Comments Yes 0 (1 standard drink = 0.6 oz pur e alcohol) 1/mo Comments No Sex and Gender Information Value Date Recorded Sex Assigned at Not on file Legal Sex Female 4:20 AM THUMB SEWER Gender Identity Not on file Sexual Orientation Not on file COVID-19 Exposure Response Date Recorded In the last month, have you been in contact with someone who was confirmed or suspected to have Coronavirus / COVID-19? No / Unsure 06/08/2019 4:00 PM CDT documented as of this encounter Plan of Treatment Not on file documented as of this encounter Visit Diagnoses Not on filedocumented in this encounter Care Teams Bark Tanner Relationship Specialty Start Date End Date Wilber Cleaning Jr., MD [address] [place] [address] PCP - General 07/03/16 07/15/20 Ryann Galdamez PA [address] [place] [address] PCP - General Motion Picture Cameraman 07/16/20 04/01/21 Ryann Galdamez PA [address] [place] [address] PCP - General Motion Picture Cameraman 04/02/21 01/22/22 Cuba Larsen MD [address] [address] PCP - General Family Medicine 01/23/22 Chris Mendes MD [address] [place] [address] Referring Physician Cardiology 12/23/21 Keli Orozco RN Soft Water Mechanic Cardiology 12/23/21 04/15/23 Alysa Newton, RN [address] [facility] [address] [place] [address] Soft Water Mechanic Cardiology 12/23/21 Keli Orozco, motion picture cameraman Failure Coordinator 04/02/23 4 Keli Orozco, motion picture cameraman Failure Coordinator Transplant 04/15/23 Tami Mcknight motion picture cameraman Failure Coordinator Cardiology 09/14/23 documented as of this encounter
--- OUTSIDE RECORDS SUMMARY | 2024-03-13 01:14 | XMS_ITS | Encounter Summary ---
Author Organization [facility] Address [address] [place] [address] Phone Care Team Providers Care Clinical Rehab Liaison Name Role Phone Hermila Calhoun MD, Wilber A. Primary Care Provider Reason for Visit * Reason Onset Date Comments Med Refill 03/21/2020 Encounter Details Date Type Department Care Team (Late st Contact Info) Description 03/21/2020 Telephone [facility] Cardiology [address] [facility] 8th [place] [address] [place] [address] Cathleen Walker MD [address] [facility] [address] [place], [place] [id number] Med Refill Social History Tobacco Use Types Packs/Day Years Used Date Smoking Tobacco: Never Smokeless Tobacco: Never Alcohol Use Standard Drinks/Week Comments Yes 0 (1 standard drink = 0.6 oz pur e alcohol) 1/mo Comments No Sex and Gender Information Value Date Recorded Sex Assigned at Not on file Legal Sex Female 4:20 AM 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 SALES SPECIALIST Gender Identity Not on file Sexual Orientation Not on file documented as of this encounter Miscellaneous Notes * Telephone Encounter - Olivia Kwong RMA - 03/22/2020 12:17 PM TECHNICAL SALES SPECIALIST refilled NICAL SALES SPECIALIST * Telephone Encounter - Paulina Bright RN - 03/22/2020 11:53 AM TECHNICAL SALES SPECIALIST Please fill both, thanks NICAL SALES SPECIALIST * Telephone Encounter - Cathleen Walker MD - 03/22/2020 9:27 AM CST Okay to refill potassium and take furosemide daily NICAL SALES SPECIALIST * Telephone Encounter - Paulina Bright RN - 03/21/2020 4:04 PM TECHNICAL SALES SPECIALIST Per chart pt to take 20meq BID Not previously ordered by you Ok to fill? Pt taking lasix 40mg daily NICAL SALES SPECIALIST * Telephone Encounter - Olivia Kwong RMA - 03/21/2020 3:57 PM TECHNICAL SALES SPECIALIST Ok to refill under please advise thanks NICAL SALES SPECIALIST * Telephone Encounter - Raiza Dangelo - 03/21/2020 2:31 PM CST Images from the original note were not included. NICAL SALES SPECIALIST documented in this encounter Plan of Treatment Not on file documented as of this encounter Visit Diagnoses Not on filedocumented in this encounter Care Teams Clinical Rehab Liaison Relationship Specialty Start Date End Date Wilber Cleaning Jr., MD [address] [place] [address] PCP - General 07/03/16 07/15/20 documented as of this encounter
--- OUTSIDE RECORDS SUMMARY | 2024-03-13 01:14 | XMS_ITS | Encounter Summary ---
Author Organization [facility] Address [address] [place] [address] Phone Care Team Providers Care Dialysis Tech Name Role Phone Hermila Calhoun MD, Oscar A. 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) Acute combined systolic and diastolic heart failure (CMS/HCC) (HCC) Procedures Transthoracic Echo Complete W Doppler/CF Cathleen Fish MD Phone: tel: fax: [facility] (All Locations) Referral ID Status Reason Start Date Expiration Date Visits Re quested Visits Authorized [id number] Closed 07/29/2019 2021 1 1 Reason for Visit * Cardiology (Routine) - Closed Specialty Diagnoses / Procedures Referred By Contac t Referred To Contact Cardiology Diagnoses Atrial fibrillation, unspecified type (HCC) Wilber Cleaning Jr., MD [address] [place] [address] Phone: tel: fax: Cathleen Fish MD [address] [place] [address] Phone: tel: fax: Referral ID Status Reason Start Date Expiration Date V isits Requested Visits Authorized [id number] Closed Specialty Services Required 07/20/2019 11/15/2019 3 3 Encounter Details Date Type Department Care Team (Late st Contact Info) Description 07/29/2019 10:50 AM CDT Office Visit [facility] Cardiology [address] [facility] 8th [place] [address] [place] [address] Cathleen Fish MD [address] [facility] [address] 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 (CMS/HCC) (Primary Dx); Atrial fibrillation, unspecified type (CMS/HCC); Acute combined systolic and diastolic heart failure (CMS/HCC); Essential hypertension Social History Tobacco Use Types Packs/Day Years Used Date Smoking Tobacco: Never Smokeless Tobacco: Never Alcohol Use Standard Drinks/Week Comments Yes 0 (1 standard drink = 0.6 oz pur e alcohol) 1/mo Comments No Sex and Gender Information Value Date Recorded Sex Assigned at Not on file 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 Gender Identity Not on file Sexual Orientation Not on file documented as of this encounter Last Filed Vital Signs Vital Sign Reading Time Taken Comments Blood Pressure 160/81 07/29/2019 11:17 AM CDT Pulse 73 07/29/2019 11:17 AM CDT Temperature 36.9 ??C (98.4 ??F) 07/29/2019 11:17 AM C DT Respiratory Rate - - Oxygen Saturation 97% 07/29/2019 11:17 AM CDT Inhaled Oxygen Concentration - - Weight 91.4 kg (201 lb 6.4 oz) 07/29/2019 11:17 AM CDT Height 157.5 cm (5' 2 ) 07/29/2019 11:17 AM CDT Body Mass Index 36.84 07/29/2019 11:17 AM CDT documented in this encounter Patient Instructions * Patient Instructions* Cathleen Fish MD - 07/29/2019 10:50 AM CDT Schedule echocardiogram Start spironolactone 25 mg daily to help with blood pressure Increase furosemide to 60 mg daily Call the office after your have your CT scan so we can get the results Continue to monitor blood pressure and weights on a daily basis We will discuss referral to the afib doctors and stress test after your CT scan Return to clinic in 6 weeks documented in this encounter Ordered Prescriptions Prescription Sig Dispense Quantity Refills Last Filled Start Date End Date furosemide (LASIX) 20 mg tablet Take 3 tablets (60 mg total) by mouth daily 90 tablet 11 07/29/2019 0 spironolactone (ALDACTONE) 25 mg tablet Take 1 tablet (25 mg total) by mouth daily 30 tablet 11 07/29/2019 0 documented in this encounter Progress Notes * Cathleen Fish MD - 07/29/2019 10:50 AM CDT Provider: Cathleen Fish MD Patient Name: Prema Duckworth Ramses : 1940 Date of Service: 07/29/2019 Referring: Hermila PROBLEM LIST: 1. Atrial fibrillation ?? DCCV and sotalol intiation ~ 2009, discontinued 12/2018 ?? Treated with rate control until submassive pulmonary emboli in 05/2019, amiodarone initiated ?? Amiodarone discontinued 06/2019 due GI side effects 2. Heart failure with reduced ejection fraction ?? Echocardiogram 05/2019 with LVEF 38%, down from 51% and RV enlargement and dysfunction 3. Aortic stenosis, moderate 4. Submassive pulmonary embolism 05/2019 1. Provoked, occurred 1 week after left distal femoral replacement for an open fracture 5. Right lower extremity DVT 05/2019 6. Hypertension 7. Diabetes mellitus type II, insulin dependent 8. Obstructive sleep apnea, on CPAP 9. Hypothyroidism Dear Dr. Cleaning, Today I had the [facility] of her atrial fibrillation. She had a distal femur fracture and underwent replacement in May 2019. Restarted on coumadin post operative. She presented 1 week following surgery respiratory failure,lactate 4.7 and positive troponin. INR not therapeutic at the time of presentation. She was in AF with RVR, initially treated with diltiazem gtt then changes to an amiodarone gtt. CT with bilateral pulmonary emboli and echocardiogram with new onset LV dysfunction. CT also notable for 3v coronary calcifications. She was discharged home on carvedilol and coumadin. She presented ~ 5 days after discharged in acute heart failure, AF with RVR and trop peaking at 6.34. ECG with anterior T wave inversions. LHC deferred and she was started on abixaban and amiodarone. She was instructed to taper amiodarone but forgot to do so. Called the clinic 2 weeks after discharge with complaints of gastrointestinal symptoms and overall not feeling well. I advised her to stop amiodarone and her carvedilol. GI sy mptoms resolved with amiodarone discontinuation. Labs also revealed an elevated TSH, for which her primary care physician increased her dose of synthroid. Since the above changes to her medications, she has been feeling better but continues to have dyspnea with exertion, unable to do household activities or walk short distances without stopping due to shortness of breath. No exertional chest discomfort, syncope, palpitations, orthopnea or pnd. She has lower extremity edema R>L which has been stable. Her blood pressure is consistently high:150-170/100, HR 80's. No missed doses of apixaban. She has a CT chest scheduled for next week to assess clot burden now that she has been on anticoagulation for ~2 months. PAST MEDICAL HISTORY Past Medical History: Diagnosis Date ??? Atrial fibrillation (CMS/HCC) ??? Dyslipidemia ??? Hypertension ??? Hypothyroidism ??? Mitral regurgitation ??? Obesity ??? PONV (postoperative nausea and vomiting) ??? Sleep apnea MEDICATIONS Outpatient Encounter Medications as of 07/29/2019 Medication Sig Dispense Refill ??? acetaminophen (TYLENOL) 500 mg tablet Take 1,000 mg by mouth as needed for pain ??? apixaban (ELIQUIS) 5 mg tablet Take 1 tablet (5 mg total) by mouth 2 (two) times a day 60 tablet 11 ??? aspirin 81 mg chewable tablet Take 1 tablet (81 mg total) by mouth daily 30 tablet 11 ??? carvediloL (COREG) 25 mg tablet Take 1 tablet (25 mg total) by mouth 2 (two) times a day with meals 60 tablet 11 ??? cholecalciferol, vitamin D3, (VITAMIN D3 ORAL) Take 400 Units by mouth daily ??? DULoxetine DR (CYMBALTA) 60 mg capsule Take 60 mg by mouth daily ??? ergocalciferol (VITAMIN D) 50,000 unit capsule Take 50,000 Units by mouth once a week ??? levothyroxine (SYNTHROID) 50 mcg tablet Take 25 mcg by mouth daily 1 ??? losartan (COZAAR) 100 mg tablet Take 100 mg by mouth daily ??? metFORMIN XR (GLUCOPHAGE XR) 500 mg 24 hr tablet Take 1,000 mg by mouth daily with breakfast ??? multivit,iron,minerals/lutein (CENTRUM SILVER ULTRA WOMEN'S ORAL) Take 1 tablet by mouth daily ??? pancrelipase (CREON) 36,000 units of lipase capsule 1 capsule 3 (three) times a day with meals ??? potassium chloride ER (KLOR-CON) 20 mEq CR tablet Take 20 mEq by mouth 2 (two) times a day ??? rosuvastatin (CRESTOR) 20 mg tablet Take 1 tablet (20 mg total) by mouth daily 30 tablet 11 ??? zolpidem (AMBIEN) 5 mg tablet Take 5 mg by mouth nightly at bedtime. ??? [DISCONTINUED] furosemide (LASIX) 20 mg tablet ??? furosemide (LASIX) 20 mg tablet Take 3 tablets (60 mg total) by mouth daily 90 tablet 11 ??? ipratropium-albuteroL (DUO-NEB) 0.5-2.5 mg/3 mL nebulizer solution Take 3 mL by nebulization every 6 (six) hours as needed for wheezing or shortness of breath ??? [] oxyCODONE-acetaminophen (PERCOCET) 5-325 mg per tablet Take 1-2 tablets by mouth every 4 (four) hours as needed for pain (Patient not taking: Reported on 07/21/2019) 56 tablet 0 ??? pantoprazole DR (PROTONIX) 40 mg EC tablet Take 1 tablet (40 mg total) by mouth daily 30 tablet0 ??? spironolactone (ALDACTONE) 25 mg tablet Take 1 tablet (25 mg total) by mouth daily 30 tablet 11 ??? [DISCONTINUED] busPIRone (BUSPAR) 5 mg tablet Take 5 mg by mouth daily Take 5mg by mouth daily x 1 week, then increase to 5mg twice daily ??? [DISCONTINUED] furosemide (LASIX) 20 mg tablet Take 1 tablet (20 mg total) by mouth 2 (two) times a day 60 tablet 0 ??? [DISCONTINUED] insulin aspart U-100 (NovoLOG) 100 unit/mL (3 mL) insulin pen Administer subcutaneously per sliding scale ??? [DISCONTINUED] levothyroxine (SYNTHROID) 25 mcg tablet ??? [DISCONTINUED] Ozempic 0.25 mg or 0.5 mg(2 mg/1.5 mL) pen injector Inject 0.25 mg under the skin once a week No facility-administered encounter medications on file as of 07/29/2019. ALLERGY Amlodipine; Prasanth inhibitors; Citalopram; Lisinopril; and Ozempic [semaglutide] FAMILY HISTORY Family History Problem Relation Age [...] ??? Anesthesia problems Neg Hx SOCIAL HISTORY No smoking, alcohol or drug use REVIEW OF SYSTEMS: General: No fever, chills, malaise, positive for fatigue Eyes: No alterations in visual acuity ENT: No alterations in auditory acuity, no sore throat Pulmonary: See HPI Cardiac: see HPI GI: No nausea, vomiting, diarrhea or constipation Musculoskeletal: No myalgias or arthralgias Skin: no rashes Neuro: No headaches, parathesias or focal neurological complaints Endocrine: No cold or heat intolerance Heme: no excessive bleeding or bruising All other review of systems are negative unless otherwise stated in the HPI. PHYSICAL EXAM: BP 160/81 Pulse 73 Temp 36.9 ??C (98.4 ??F) Ht 157.5 cm (5' 2 ) Wt 91.4 kg (201 lb 6.4 oz) SpO2 97% BMI 36.84 kg/m?? Vital signs, weight, and intake/output reviewed. Gen: well developed, well nourished, no acute distress HEENT: moist mucus membranes, positive jugular venous distension, no carotid bruits Chest: Lungs clear to auscultation bilaterally Cardiac: irregular, irregular, 2/6 murmur at the RUSB with diminished heart sounds Abdomen: Positive bowel sounds, soft, nontender, nondistended, no hepatosplenomegaly Extremities: Warm and well-perfused, positive pulses, no cyanosis, clubbing, 1+ lower extremity edema, R>L Skin: No rashes Neurologic: nonfocal exam Psychiatric: alert and oriented DIAGNOSTIC DATA: Echocardiogram 2009. Normal LV and RV size and systolic function. Borderline LVH. Pseudonormal diastolic dysfunction. Mild aortic sclerosis with normal proximal aorta. Mod LAE and mild-to-mod MR. Mild TR/NC with est PA pressure 41/9 mm Hg and normal IVC. Echocardiogram 05/2019: Normal LV chamber size, moderate systolic dysfunction, EF=38%. Marked LAE. Moderate MAC. Mildly dilated RV, moderate RV hypokinesis. Mild KAROL. Dilated inferior vena cava. Mild MR and TR. Moderate . 12/18 mmHg, HOLLI 1.3, DI 16/38 CT PE protocol IMPRESSION: 06/09/2019 1. Bilateral pulmonary emboli extending all segments and all lobes of the main pulmonary arteries. This is associated with right heart enlargement. This may be seen in the setting of right heart strain. 2. Bilateral pleural effusions. ASSESSMENT & PLAN: 1. NSTEMI. Elevated troponin in setting of a submassive pulmonary emboli but she was also found to have new onset LV dysfunction. Continue aspirin, rosuvastatin, carvedilol. Will repeat echocardiogram. We discussed performing an ischemic evaluation with a cardiac catheterization - right and left. Will discuss this further after I have the results of her CT scan and echocardiogram. 2. HFrEF. NYHA Class III. She has mild volume overload on exam. Increase furosemide to 60 mg daily from 20 mg BID. Start aldactone 25 mg daily. Continue carvedilol and losartan. Will discuss catheterization following the results of her CT can and echocardiogram. 3. Atrial fibrillation. Persistent. AF may be contributing to her symptoms of fatigue and shortnessof breath; however, she has multiple factors that can also lead to this including heart failure andrecent submassive pulmonary emboli. She had recurrent AF on sotalol and did not tolerate amiodarone. We discussed treatment for her AF antiarrhythmic therapy and cardioversion vs consideration of catheter ablation. Will defer EP referral until we have the results of her echocardiogram and cardiac catheterization. 4. Aortic stenosis, moderate: Continue to monitor with serial echocardiograms. 5. Submassive pulmonary embolism: Provoked. On apixban [address] PE scheduled for 08/04 at her local hospital. Will repeat echocardiogram. I would like for her to complete 3 months minimum of uinterrupted anticoagulation before anticoagulation held for procedures. 6. Hypertension: Poorly controlled. Start spironolactone. Continue carvedilol 25 mg BID and losartan 100 mg daily. Will obtain BMP in 2 weeks. Thank you very much for letting me participate in the care of this patient. I will plan to see her back in follow up in 6 weeks. Please feel free to call with any questions or concerns. 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 (CMS/HCC) Acute combined systolic and diastolic heart failure (CMS/HCC) documented in this encounter Results * (ABNORMAL) CBC with auto differential (08/23/2019 11:18 AM CDT) WBC 6.0 3.8 - 10.8 Thousand/u L [facility] RBC, POC 3.98 3.80 - 5.10 Million/uL [facility] Hgb 9.6(L) 11.7 - 15.5 g/dL [facility] Hct 33.0(L) 35.0 - 45.0 % [facility] MCV 82.9 80.0 - 100.0 fL [facility] MCH 24.1(L) 27.0 - 33.0 pg [facility] MCHC 29.1(L) 32.0 - 36.0 g/dL [facility] Rdw 16.7(H) 11.0 - 15.0 % [facility] Platelets 392 140 - 400 Thousand/u L [facility] MPV 9.7 7.5 - 12.5 fL [facility] Neutrophils, abs 3,516 1,500 - 7,800 cells/uL [facility] Lymphocytes, abs 1,812 850 - 3,900 cells/uL [facility] Monocyte abs 498 200 - 950 cells/uL [facility] Eosinophils, abs 132 15 - 500 cells/uL [facility] Basophils, abs 42 0 - 200 cells/uL [facility] Neutrophils 58.6 % [facility] Lymphocyte pct 30.2 % [facility] Monocytes 8.3 % [facility] Eosinophils 2.2 % [facility] Basophils 0.7 % [facility] Blood specimen (specimen) 08/23/2019 11:18 AM CDT 08/23/2019 11:19 AM CDT us Cathleen Mccormick MD LAB BLOOD ORDERA BLES Final Result [facility] [address] [place] [address] * (ABNORMAL) Comprehensive metabolic panel (08/23/2019 11:18 AM CDT) Glucose 139(H) 65 - 99 mg/dL [facility] Comment: ? Fasting reference interval For someone without known diabetes, a glucose value >125 mg/dL indicates that they may have diabetes and this should be confirmed with a follow-up test. BUN 17 7 - 25 mg/dL [facility] Creatinine 0.66 0.60 - 0.93 mg/dL [facility] Comment: For patients >49 years of age, the reference limit for Creatinine is approximately 13% higher for people identified as -[place]. eGFR NON-AFR. [place] 85 > OR = 60 mL/min/1 .73m2 [facility] EGFR 98 > OR = 60 mL/min/1 .73m2 [facility] BUN/creat ratio NOT APPLICABLE 6 - 22 (calc) [facility] Sodium 138 135 - 146 mmol/L [facility] Potassium, pl 4.1 3.5 - 5.3 mmol/L [facility] Chloride 101 98 - 110 mmol/L [facility] CO2 29 20 - 32 mmol/L [facility] Calcium 9.8 8.6 - 10.4 mg/dL [facility] Protein, sr 7.2 6.1 - 8.1 g/dL [facility] Albumin 4.2 3.6 - 5.1 g/dL [facility] GLOBULIN 3.0 1.9 - 3.7 g/dL (calc) [facility] Alb/glob ratio 1.4 1.0 - 2.5 (calc) [facility] Bilirubin, total 0.4 0.2 - 1.2 mg/dL [facility] Alk phos 125 37 - 153 U/L [facility] AST 16 10 - 35 U/L [facility] ALT (SGPT) 12 6 - 29 U/L [facility] Blood specimen (specimen) 08/23/2019 11:18 AM CDT 08/23/2019 11:19 AM CDT us Cathleen Mccormick MD LAB BLOOD ORDERA BLES Final Result [facility] [address] [place] [address] * Transthoracic Echo Complete W Doppler/CF (08/18/2019 11:30 AM CDT) Anatomical Region Laterality Modality Ultrasound 08/18/2019 11:3 0 AM CDT Narrative 08/18/2019 2:11 PM CDT Patient name: Prema Pearce Date of test: 08/18/2019 Type of test: TTE w/Doppler [facility] #: [id number] Date of : 1940 (F) Furnace Maintenance: OSEI Rondon Referring Physician: CATHLEEN FISH MD Contrast Agent: 1.5 ml Optison Administered, (1.5 ml wasted). Contrast Administered by: Tami Bush RN Supervised/Interpreted by: Jose Antonio ??MD Elisabet Diagnosis: Location: [facility] Reason for test: heart failure MV Structure: mildly thickened, ?MV Motion: Normal, ?? Mitral Annulus: moderately calcified AV Structure: tricuspid and is moderately thickened, ?? AV Motion: restricted Aotic root: Normal, ?TM: Normal, ?? PV: Normal Valvular Vegetations: none seen, ?Mass/Thrombi: none seen RA: increased Measurements: ?M-Mode ?Normal ? Aotic Root: ? <3.8 ? LA: ? <3.8 ? RV: ? <2.8 ? LV(ED): ? <5.7 ? LV(ES): ? Variable ?2D Linear Normal ? Aotic Root: 3.2 cm ?<3.6 ? Ao Indexed: 1.7 cm/M2 <2.0 ? LA: ? <3.8 ? RV: ? 3.9 cm ?<4.2 ? LV(ED): ? 4.6 cm ?<5.3 ? LV(ES): ? 3.3 cm ?<3.5 ?2D Vol. ?? Normal ?Indexed ?? Indexed Normal RA: ? 78.0 ml ? 41.8 ml/M2 ?9-33 ? LA: ? 125.0 ml ?67.0 ml/M2 ?16-34 ? RV: ? <11.6 ? LV(ED): ? 87.0 ml ?? 46-106 ?46.6 ml/M2 ?<62 ? LV(ES): ? 29.0 ml ?? 14-42 ? 15.5 ml/M2 ?<25 ?3D Vol. ? Indexed Normal LV(ED): ? 25.7 mL/m2 ?? <62 ? LV(ES): ? 15.0 mL/m2 ?? <24 ? LV EF: 67 % ?? (Normal: >=54%) ?? LV Septum: 1.1 cm ?(Normal: <0.9 cm) Wall Motion Scoring (1=Normal 2=Hypo 3=Akinetic 4=Dyskin./Aneurysm 0=Not visualized) Parasternal Long Otoe:MAS=1 BAS=1 MIL=1 NIGHAT=1 Parasternal Short Otoe:MAS=1 MIS=1 ME=1 MIL=1 MAL=1 MA=1 Apical 4 Chambers:=1 MIS=1 BIS=1 BAL=1 MAL=1 AL=1 AC=1 Apical 2 Chambers:AI=1 ME=1 BI=1 BA=1 MA=1 AA=1 AC=1 LV Global Longitudinal Strain: RV Global Longitudinal Strain: LV Function: Normal LV Ejection Fraction, ??(EF=54-74%) RV Function: Normal Septal Motion: Normal Pericardial Effusion: none seen Atrial Septum: Normal DOPPLER/COLOR FLOW DOPPLER RESULTS: Diastolic Function: indeterminate-irregular rhythm Tricuspid Valve: mild TV regurgitation Pulmonic Valve: normal PV AV Regurgitation: No AR seen AV Stenosis: moderate AV Area: 1.2 cm2 AV Pressure Gradient (mmHg): Mean: 12, Peak:0 MV Regurgitation: No MR seen MV Stenosis: no MS MV Area: ??cm2 MV Pressure Gradient (mmHg): Mean: 0 MV ERO: ??cm Regurg. Vol.: ??ml/beat Regurg. Frac.: ??% PA Pressure: 19+Rap mmHg DOPPLER/COLOR FOLOW DOPPLER COMMENTS: No AR seen, No MR seen, moderate , no MS, mild TV regurgitation, normal PV. Diastolic function: indeterminate CONTRAST: 1.5 ml Optison Administered, (1.5 ml wasted). SUMMARY: LV size is normal. Mild increase in LV wall thickness. LVEF 67%. Normal RV function. Calcified AoV with mod . Biatrial enlargement. Estimated PASP 19mmHg+RAp. RA pressure is normal. Confirmed on ??08/18/2019 - 14:11:09 by Jose Antonio ??MD Elisabet By signing this report, the attending almond cutting machine tender certifies that he or she has personally supervised and interpreted the echocardiogram and has reviewed and or edited and agrees with the written comments contained within the report. Procedure Note Jose Antonio Bhandari MD - 08/18/2019 Patient name: Prema Pearce Date of test: 08/18/2019 Type of test: TTE w/Doppler [facility] #: [id number] Date of : 1940 (F) Furnace Maintenance: OSEI Rondon Referring Physician: CATHLEEN FISH MD Contrast Agent: 1.5 ml Optison Administered, (1.5 ml wasted). Contrast Administered by: Tami Bush RN Supervised/Interpreted by: Jose Antonio Bhandari MD Diagnosis: Location: [facility] Reason for test: heart failure MV Structure: mildly thickened, MV Motion: Normal, Mitral Annulus: moderately calcified AV Structure: tricuspid and is moderately thickened, AV Motion: restricted Aotic root: Normal, TM: Normal, PV: Normal Valvular Vegetations: none seen, Mass/Thrombi: none seen RA: increased Measurements: M-Mode Normal Aotic Root: <3.8 LA: <3.8 RV: <2.8 LV(ED): <5.7 LV(ES): Variable 2D Linear Normal Aotic Root: 3.2 cm <3.6 Ao Indexed: 1.7 cm/M2 <2.0 LA: <3.8 RV: 3.9 cm <4.2 LV(ED): 4.6 cm <5.3 LV(ES): 3.3 cm <3.5 2D Vol. Normal Indexed Indexed Normal RA: 78.0 ml 41.8 ml/M2 9-33 LA: 125.0 ml 67.0 ml/M2 16-34 RV: <11.6 LV(ED): 87.0 ml 46-106 46.6 ml/M2 <62 LV(ES): 29.0 ml 14-42 15.5 ml/M2 <25 3D Vol. Indexed Normal LV(ED): 25.7 mL/m2 <62 LV(ES): 15.0 mL/m2 <24 LV EF: 67 % (Normal: >=54%) LV Septum: 1.1 cm (Normal: <0.9 cm) Wall Motion Scoring (1=Normal 2=Hypo 3=Akinetic 4=Dyskin./Aneurysm 0=Not visualized) Parasternal Long Otoe:MAS=1 BAS=1 MIL=1 NIGHAT=1 Parasternal Short Otoe:MAS=1 MIS=1 ME=1 MIL=1 MAL=1 MA=1 Apical 4 Chambers:=1 MIS=1 BIS=1 BAL=1 MAL=1 AL=1 AC=1 Apical 2 Chambers:AI=1 ME=1 BI=1 BA=1 MA=1 AA=1 AC=1 LV Global Longitudinal Strain: RV Global Longitudinal Strain: LV Function: Normal LV Ejection Fraction, (EF=54-74%) RV Function: Normal Septal Motion: Normal Pericardial Effusion: none seen Atrial Septum: Normal DOPPLER/COLOR FLOW DOPPLER RESULTS: Diastolic Function: indeterminate-irregular rhythm Tricuspid Valve: mild TV regurgitation Pulmonic Valve: normal PV AV Regurgitation: No AR seen AV Stenosis: moderate AV Area: 1.2 cm2 AV Pressure Gradient (mmHg): Mean: 12, Peak:0 MV Regurgitation: No MR seen MV Stenosis: no MS MV Area: cm2 MV Pressure Gradient (mmHg): Mean: 0 MV ERO: cm Regurg. Vol.: ml/beat Regurg. Frac.: % PA Pressure: 19+Rap mmHg DOPPLER/COLOR FOLOW DOPPLER COMMENTS: No AR seen, No MR seen, moderate , no MS, mild TV regurgitation, normal PV. Diastolic function: indeterminate CONTRAST: 1.5 ml Optison Administered, (1.5 ml wasted). SUMMARY: LV size is normal. Mild increase in LV wall thickness. LVEF 67%. Normal RV function. Calcified AoV with mod . Biatrial enlargement. Estimated PASP 19mmHg+RAp. RA pressure is normal. Confirmed on 08/18/2019 - 14:11:09 by Jose Antonio Bhandari MD By signing this report, the attending almond cutting machine tender certifies that he or she has personally supervised and interpreted the echocardiogram and has reviewed and or edited and agrees with the written comments contained within the report. 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 (HCC) Acute combined systolic and diastolic heart failure (CMS/HCC) (HCC) Acute combined systolic and diastolic heart failure documented in this encounter Discontinued Medications Medication Sig Discontinue Reason Start Date End Da te busPIRone (BUSPAR) 5 mg tabletIndications:Ge neralized Anxiety Disorder Take 5 mg by mouth daily Take 5mg by mouth daily x 1 week, then increase to 5mg twice daily Therapy completed 06/08/2019 07/29/2019 insulin aspart U-100 (NovoLOG) 100 unit/mL (3 mL) insulin pen Administer subcutaneously per sliding scale Patient Discharge 07/29/2019 levothyroxine (SYNTHROID) 25 mcg tablet Dose adjustment 07/11/2019 07/29/2019 furosemide (LASIX) 20 mg tablet Patient Discharge 07/16/2019 07/29/2019 furosemide (LASIX) 20 mg tablet Take 1 tablet (20 mg total) by mouth 2 (two) times a day Patient Discharge 06/05/2019 07/29/2019 documented as of this encounter Historical Medications * This list may reflect changes made after this encounter. pancrelipase (CREON) 36,000 units of lipase capsuleIndications: exocrine pancreatic insufficiency 1 capsule 3 (three) times a day with meals 0 levothyroxine (SYNTHROID) 25 mcg tablet 07/11/2019 0 furosemide (LASIX) 20 mg tablet 07/16/2019 0 zolpidem (AMBIEN) 5 mg tablet Take 5 mg by mouth nightly at bedtime. 06/30/2019 1 ergocalciferol (VITAMIN D) 50,000 unit capsule Take 50,000 Units by mouth once a week 06/30/2019 1 potassium chloride ER (KLOR-CON) 20 mEq CR tablet Take 20 mEq by mouth 2 (two) times a day 1 added in this encounter Orders Outpatient Referral Count Last Ordered Date Fir st Ordered Date AMB REFERRAL TO CARDIOLOGY 1 07/29/2019 documented in this encounter Care Teams Dialysis Tech Relationship Specialty Start Date End Date Wilber Cleaning Jr., MD [address] [place] [address] PCP - General 07/03/16 07/15/20 documented as of this encounter
--- OUTSIDE RECORDS SUMMARY | 2024-03-13 01:14 | XMS_ITS | Encounter Summary ---
Author Organization [facility] Address [address] [place] [address] Phone Care Team Providers Care Infirmary Attendant Name Role Phone Hermila Calhoun MD, Wilber Duckworth. Primary Care Provider Encounter Details Date Type Department Care Team (Late st Contact Info) Description 06/28/2019 Telephone [facility] Cardiology [address] [facility] Advanced Medicine 8th [place] [address] [place] [address] Cathleen Walker MD [address] [facility] [address] [place], [place] [id number] Social History Tobacco Use Types Packs/Day Years Used Date Smoking Tobacco: Never Smokeless Tobacco: Never Alcohol Use Standard Drinks/Week Comments Yes 0 (1 standard drink = 0.6 oz pur e alcohol) 1/mo Comments No Sex and Gender Information Value Date Recorded Sex Assigned at Not on file Legal Sex Female 4:20 AM ADVANCED PRACTICE PROVIDER Gender Identity Not on file Sexual Orientation Not on file COVID-19 Exposure Response Date Recorded In the last month, have you been in contact with someone who was confirmed or suspected to have Coronavirus / COVID-19? No / Unsure 06/08/2019 4:00 PM CDT documented as of this encounter Ordered Prescriptions Prescription Sig Dispense Quantity Refills Last Filled Start Date End Date carvediloL (COREG) 12.5 mg tablet Take 1 tablet (12.5 mg total) by mouth 2 (two) times a day with meals 60 tablet 11 06/30/2019 07/13/2019 documented in this encounter Miscellaneous Notes * Telephone Encounter - Lina Juarez - 06/30/2019 1:45 PM CDT Spoke to pt and scheduled 07/28 * Telephone Encounter - Paulina Bright RN - 06/30/2019 12:32 PM CDT Lina, Can you please schedule per DW request? Thanks! * Telephone Encounter - Cathleen Walker MD - 06/30/2019 12:19 PM CDT 4 weeks. Schedule as an office visit. If needed we can change to phone visit pending COVID precautions * Telephone Encounter - Paulina Bright RN - 06/30/2019 12:16 PM CDT I don't see a f/u appt w/ you When would you like to see pt again? * Telephone Encounter - Paulina Bright RN - 06/30/2019 12:11 PM CDT Attempted to call pt back, no answer Called and spoke w/ pt , Ravi He will have pt increase dose Update pharm * Telephone Encounter - Cathleen Walker MD - 06/30/2019 11:15 AM CDT Happy that she is feeling better. Let's increase coreg to 12.5 mg BID. * Telephone Encounter - Paulina Bright RN - 06/30/2019 11:05 AM CDT Spoke w/ pt She states her knee is improving, she is home and starting therapy today Overall, she feels better but her BP has been elevated 158/91 79 161/107 76 Last couple of days, no sx w/ this I went over her med list w/ her They are correctly listed, including amio, losartan, coreg, rosuvastatin, eliquis, asa, lasix The amio is ordered 400mg BID for 13 days, then she will decrease to 200mg daily Recommendations? * Telephone Encounter - Paulina Bright RN - 06/29/2019 2:09 PM CDT Attempted to call No answer and vm is full * Telephone Encounter - Paulina Bright RN - 06/28/2019 1:40 PM CDT Attempted to call, no answer and mailbox is full * Telephone Encounter - Alise Guillory - 06/28/2019 12:25 PM CDT ABE PT REQUESTING A RETURN CALL TO DISCUSS HER CURRENT MEDICAL CONDITION. PT STATING SHE HAS BEEN IN AND OUT OF THE HOSPITAL DURING THE PAST FEW WEEKS. PT'S BP TODAY IS 158/105 documented in this encounter Plan of Treatment Not on file documented as of this encounter Visit Diagnoses Not on filedocumented in this encounter Discontinued Medications Medication Sig Discontinue Reason Start Date End Da te carvediloL (COREG) 6.25 mg tablet Take 1 tablet (6.25 mg total) by mouth 2 (two) times a day with meals Reorder 06/13/2019 06/30/2019 documented as of this encounter Care Teams Infirmary Attendant Relationship Specialty Start Date End Date Wilber Cleaning Jr., MD [address] [place] [address] PCP - General 07/03/16 07/15/20 documented as of this encounter
--- OUTSIDE RECORDS SUMMARY | 2024-03-13 01:14 | XMS_ITS | Encounter Summary ---
Author Organization [facility] Address [address] [place] [address] Phone Care Team Providers Care Wharf Tender Head Name Role Phone Hermila Calhoun MD, Wilber A. Primary Care Provider Encounter Details Date Type Department Care Team (Late st Contact Info) Description 06/20/2019 Telephone [facility] Cardiology [address] [facility] [address] [place] [address] Cathleen Walker MD [address] [facility] [address] [place] [address] Social History Tobacco Use Types Packs/Day Years Used Date Smoking Tobacco: Never Smokeless Tobacco: Never Alcohol Use Standard Drinks/Week Comments Yes 0 (1 standard drink = 0.6 oz pur e alcohol) 1/mo Comments No Sex and Gender Information Value Date Recorded Sex Assigned at Not on file Legal Sex Female 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 No / Unsure 06/08/2019 4:00 PM CDT documented as of this encounter Miscellaneous Notes * Telephone Encounter - Menley, Paulina L., RN - 06/28/2019 1:39 PM CDT Yes, please resolve the episode See other note, will call pt back * Telephone Encounter - Sharon Harrington RMA - 06/28/2019 12:54 PM CDT 06/28/19- Spoke with patient and she is now taking Eliquis. Ok to resolve anticoag? Also patient states that she is waiting on a call back from the nurse * Telephone Encounter - Sharon Harrington RMA - 06/20/2019 9:55 AM CDT 06/20/19- LMOR inr is due. SH documented in this encounter Plan of Treatment Not on file documented as of this encounter Visit Diagnoses Not on filedocumented in this encounter Care Teams Wharf Tender Head Relationship Specialty Start Date End Date Wilber Cleaning Jr., MD [address] [place] [address] PCP - General 07/03/16 07/15/20 documented as of this encounter
--- OUTSIDE RECORDS SUMMARY | 2024-03-13 01:14 | XMS_ITS | Encounter Summary ---
Author Organization [facility] Address [address] [place] [address] Phone Care Team Providers Care Acid Filler Name Role Phone Hermila Calhoun MD, Wilber Martinez Primary Care Provider Encounter Details Date Type Department Care Team (Late st Contact Info) Description 04/27/2020 Telephone [facility] Cardiology [address] [facility] Advanced Medicine 8th [place] [address] [place] [address] Cathleen Walker MD [address] [facility] [address] [place], [place] [id number] Social History Tobacco Use Types Packs/Day Years Used Date Smoking Tobacco: Never Smokeless Tobacco: Never Alcohol Use Standard Drinks/Week Comments Yes 0 (1 standard drink = 0.6 oz pur e alcohol) 1/mo Comments No Sex and Gender Information Value Date Recorded Sex Assigned at Not on file Legal Sex Female 4:20 AM BUGGY LOADER Gender Identity Not on file Sexual Orientation Not on file documented as of this encounter Ordered Prescriptions Prescription Sig Dispense Quantity Refills Last Filled Start Date End Date furosemide (LASIX) 20 mg tablet Take 1 tablet (20 mg total) by mouth daily 30 tablet 11 04/27/2020 08/06/2020 documented in this encounter Miscellaneous Notes * Telephone Encounter - Paulina Bright RN - 04/27/2020 4:29 PM BUGGY LOADER lmor w/ recommendations Will update chart Offered call back Y LOADER * Telephone Encounter - Cathleen Walker MD - 04/27/2020 12:32 PM CST Let's decrease her furosemide to 20 mg daily and stop spironolactone. BP is too low. Y LOADER * Telephone Encounter - Paulina Bright RN - 04/27/2020 12:01 PM BUGGY LOADER Spoke w/ pt She shared she has been a bit more fatigued and at times lightheaded Her BP is noted: 103/71 59 115/75 75 109/52 52 113/71 68 Prior to that a few days running 90s-110s/50-60s She confirmed all meds per list, and takes only Dilt at night The others are all morning meds She has next f/u appt on 05/25 Just wanted to make sure that this was ok to run this low? Y LOADER * Telephone Encounter - Janet Doshi BS - 04/27/2020 9:27 AM BUGGY LOADER Aaron Pt calling and BP is running low. This morning was 103/71. Please call to discuss. Y LOADER documented in this encounter Plan of Treatment Not on file documented as of this encounter Visit Diagnoses Not on filedocumented in this encounter Discontinued Medications Medication Sig Discontinue Reason Start Date End Da te spironolactone (ALDACTONE) 25 mg tablet Take 1 tablet (25 mg total) by mouth daily 09/19/2019 04/27/2020 furosemide (LASIX) 20 mg tablet Take 2 tablets (40 mg total) by mouth daily Reorder 03/22/2020 04/27/2020 documented as of this encounter Care Teams Acid Filler Relationship Specialty Start Date End Date Wilber Cleaning Jr., MD [address] [place] [address] PCP - General 07/03/16 07/15/20 documented as of this encounter
--- OUTSIDE RECORDS SUMMARY | 2024-03-13 01:14 | XMS_ITS | Encounter Summary ---
Author Organization [facility] Address [address] [place] [address] Phone Care Team Providers Care Invasive Cardiologist Name Role Phone Hermila Calhoun MD, Wilber Martinez Primary Care Provider Reason for Visit * Reason Onset Date Comments Med Refill 06/20/2020 Encounter Details Date Type Department Care Team (Late st Contact Info) Description 06/20/2020 Telephone [facility] Cardiology [address] [facility] 8th [place] [address] [place] [address] Cathleen Walker MD [address] [facility] [address] [place], [place] [id number] Med Refill Social History Tobacco Use Types Packs/Day Years Used Date Smoking Tobacco: Never Smokeless Tobacco: Never Alcohol Use Standard Drinks/Week Comments Yes 0 (1 standard drink = 0.6 oz pur e alcohol) 1/mo Comments No Sex and Gender Information Value Date Recorded Sex Assigned at Not on file Legal Sex Female 4:20 AM WHEEL ASSEMBLER Gender Identity Not on file Sexual Orientation Not on file documented as of this encounter Ordered Prescriptions Prescription Sig Dispense Quantity Refills Last Filled Start Date End Date rosuvastatin (CRESTOR) 20 mg tablet Take 1 tablet (20 mg total) by mouth daily 90 tablet 06/20/2020 09/11/2020 documented in this encounter Miscellaneous Notes * Telephone Encounter - Lucila Martini RN - 06/20/2020 2:38 PM CDT Refill sent. * Telephone Encounter - Yasmin Soto - 06/20/2020 1:34 PM CDT Aaron Rosuvastatin 200mg 1/D # [address] [facility] Pharm[facility] documented in this encounter Plan of Treatment Not on file documented as of this encounter Visit Diagnoses Not on filedocumented in this encounter Discontinued Medications Medication Sig Discontinue Reason Start Date End Da te rosuvastatin (CRESTOR) 20 mg tablet Take 1 tablet (20 mg total) by mouth daily Reorder 06/14/2019 06/20/2020 documented as of this encounter Care Teams Invasive Cardiologist Relationship Specialty Start Date End Date Wilber Cleaning Jr., MD [facility] [place] [address] PCP - General 07/03/16 07/15/20 documented as of this encounter
--- OUTSIDE RECORDS SUMMARY | 2024-03-13 01:14 | XMS_ITS | Encounter Summary ---
Author Organization [facility] Address [address] [place] [address] Phone Care Team Providers Care Cyber Ops Planner Name Role Phone Hermila Calhoun MD, Wilber Martinez Primary Care Provider Reason for Visit * (Routine) - Closed Specialty Diagnoses / Procedures Referred By Contac t Referred To Contact Diagnoses Persistent atrial fibrillation (HCC) Procedures ECG 12 lead Catarina Huerta MD Phone: tel: fax: [facility] Referral ID Status Reason Start Date Expiration Date Visits Re quested Visits Authorized [id number] Closed 09/07/2018 03/18/2020 1 1 Encounter Details Date Type Department Care Team (Late st Contact Info) Description 06/23/2019 11:45 AM CDT Telemedicine [facility] Orthopaedic Surgery [address] [facility] Advanced Medicine 6th [place] [address] [place] [address] Yu Swanson MD [address] [place] [address] 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 No / Unsure 06/08/2019 4:00 PM CDT documented as of this encounter Progress Notes * Yu Swanson MD - 06/23/2019 11:45 AM CDT POSTOPERATIVE VISIT Surgery: Left knee I&D (Dr. Castro) Date: 05/22/19 Surgery: Left distal femoral replacement Date: 05/25/19 This patient is four weeks status post left distal femoral replacement for open distal femur fracture. She had a couple of readmissions for PE. She is now at a facility, and unable to come to clinic to be physically seen. I spoke with the patient and the nurse taking care of her by phone. Per the nurse, the incisions are clean, dry and intact. There has been no drainage. The patient reports that she has been progressing with PT. PLAN: I instructed the nurse to remove the theodore and sutures. They should keep the wounds dry, no lotions, ointments or wound cleansers. She will follow up in 3-4 weeks, with x-rays at that time. ADDENDUM: This was a telemedicine visit with Prema Pearce and her nurse, Vonda, which took place via Telephone. During the visit, I was located in [place] and the patient was located in [place]. The session started at 12:38PM and ended at 12:43PM. The patient has been informed that the visit may not be secure and acknowledged the information. I have explained the option of participating in a telephone or video visit during the COVID-19 public health emergency to the patient. After being given an opportunity to ask questions about and discuss this type of visit, the patient verbally consented to proceeding with the telephone / video visit. The patient understands that this service replaces an office visit and they may be billed and/or responsible for any applicable copayments. Yu Swanson M.D. Licensed Therapist, Orthopaedic Surgery documented in this encounter Miscellaneous Notes * Addendum Note - Yu Swanson MD - 06/23/2019 11:45 AM CDTAddended by: YU SWANSON on: 06/23/2019 01:04 PM Modules accepted: Level of Service documented in this encounter Plan of Treatment Not on file documented as of this encounter Visit Diagnoses Diagnosis 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- Primary documented in this encounter Care Teams Cyber Ops Planner Relationship Specialty Start Date End Date Wilber Cleaning Jr., MD [address] [place] [address] PCP - General 07/03/16 07/15/20 documented as of this encounter
--- OUTSIDE RECORDS SUMMARY | 2024-03-13 01:14 | XMS_ITS | Encounter Summary ---
Author Organization [facility] Address [address] [place] [address] Phone Care Team Providers Care Seafood Process Worker Name Role Phone Hermila Calhoun MD, Wilber A. Primary Care Provider Reason for Visit * Reason Onset Date Comments Scheduling Appointments 07/29/2019 Encounter Details Date Type Department Care Team (Late st Contact Info) Description 07/29/2019 Telephone [facility] Cardiology [address] [facility] 8th [place] [address] [place] [address] Cathleen Walker MD [address] [facility] [address] [place] [address] Scheduling Appointments Social History Tobacco Use Types Packs/Day Years Used Date Smoking Tobacco: Never Smokeless Tobacco: Never Alcohol Use Standard Drinks/Week Comments Yes 0 (1 standard drink = 0.6 oz pur e alcohol) 1/mo Comments No Sex and Gender Information Value Date Recorded Sex Assigned at Not on file Legal Sex Female 4:20 AM STERILE PROCESS COORDINATOR Gender Identity Not on file Sexual Orientation Not on file documented as of this encounter Miscellaneous Notes * Telephone Encounter - Paulina Bright RN - 09/09/2019 4:46 PM CDT Pt no showed for appt Dr Walker called to d/w pt * Telephone Encounter - Paulina Bright RN - 07/29/2019 4:17 PM CDT Spoke w/ pt D/w her we want to keep her balanced and to not stop altogether but maybe decrease the amount per glass or ice She understands and will follow * Telephone Encounter - Nadiya Craft - 07/29/2019 3:52 PM CDT Abe She confrm'd her appt for 09/09/19 She is swelling and dr. Walker is putting her on some medicine. She drinks a lot of water and eats ice. Is she supposed to limit her water intake. * Telephone Encounter - Lina Juarez - 07/29/2019 3:50 PM CDT Please call and make patient aware of apt on 09/08@10:50 * Telephone Encounter - Lina Juarez - 07/29/2019 3:50 PM CDT ----- Message from AYE Palafox sent at 07/29/2019 12:29 PM CDT ----- would like to see pt back in 6wks * Telephone Encounter - Paulina Bright RN - 07/29/2019 3:22 PM CDT Spoke w/ pharm Doing labs and following * Telephone Encounter - Dionte Mcclure - 07/29/2019 2:22 PM CDT ABE REQ CALL BACK REGARDING DRUG INTERACTION BETWEEN POTASSIUM & SPIRONOLACTONE,PLS CALL documented in this encounter Plan of Treatment Not on file documented as of this encounter Visit Diagnoses Not on filedocumented in this encounter Care Teams Seafood Process Worker Relationship Specialty Start Date End Date Wilber Cleaning Jr., MD [address] [place] [address] PCP - General 07/03/16 07/15/20 documented as of this encounter
--- OUTSIDE RECORDS SUMMARY | 2024-03-13 01:14 | XMS_ITS | Encounter Summary ---
Author Organization [facility] Address [address] [place] [address] Phone Care Team Providers Care Rn Lpn Cna Name Role Phone Ryann Galdamez Primary Care Provider [phone]- [phone] Reason for Referral * MRI/CAT/PET Scan (Routine) - Closed Specialty Diagnoses / Procedures Referred By Contac t Referred To Contact Radiology Diagnoses Dyspnea, unspecified type Chronic heart failure with preserved ejection fraction (CMS/HCC) (HCC) Procedures PET/CT Myocardial Perfusion Imaging (Multiple) Cathleen Fish MD Phone: tel: fax: [address] [address] Referral ID Status Reason Start Date Expiration Date Visits Re quested Visits Authorized [id number] Closed 08/23/2020 11/21/2020 2 2 * Cardiology (Routine) - Closed Specialty Diagnoses / Procedures Referred By Contac t Referred To Contact Diagnoses Dyspnea, unspecified type Chronic heart failure with preserved ejection fraction (CMS/HCC) (HCC) Procedures Transthoracic Echo Complete W Doppler/CF Cathleen Fish MD Phone: tel: fax: [facility] [address] [place] [address] Referral ID Status Reason Start Date Expiration Date Visits Re quested Visits Authorized [id number] Closed 08/06/2020 09/05/2021 1 1 Encounter Details Date Type Department Care Team (Late st Contact Info) Description 08/06/2020 10:50 AM CDT Office Visit [facility] Cardiology [facility] Medical Office Building [address] [place] [address] Cathleen Fish MD [address] [facility] [address] [facility] [place] [address] Acute combined systolic and diastolic heart failure (CMS/HCC) (Primary Dx); Dyspnea, unspecified type; Chronic heart failure with [...] on file 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 Gender Identity Not on file Sexual Orientation Not on file documented as of this encounter Last Filed Vital Signs Vital Sign Reading Time Taken Comments Blood Pressure 152/101 08/06/2020 11:22 AM CDT Pulse 92 08/06/2020 11:22 AM CDT Temperature - - Respiratory Rate - - Oxygen Saturation 97% 08/06/2020 11: 22 AM CDT Inhaled Oxygen Concentration - - Weight 95.6 kg (210 lb 12.8 oz) 021 11:22 AM CDT Height 157.5 cm (5' 2 ) 08/06/2020 11:2 2 AM CDT Body Mass Index 38.56 08/06/2020 11:22 AM CDT documented in this encounter Patient Instructions * Patient Instructions* Cathleen Fish MD - 08/06/2020 10:50 AM CDT Increase furosemide to 40 mg daily Start spironolactone 12.5 mg daily Schedule echocardiogram and stress test Get labs next week Return in 3-4 months documented in this encounter Ordered Prescriptions Prescription Sig Dispense Quantity Refills Last Filled Start Date End Date furosemide (LASIX) 40 mg tablet Take 1 tablet (40 mg total) by mouth daily 30 tablet 11 08/06/2020 1 spironolactone (ALDACTONE) 25 mg tablet Take 0.5 tablets (12.5 mg total) by mouth daily 15 tablet 11 08/06/2020 1 documented in this encounter Progress Notes * Cathleen Fish MD - 08/06/2020 10:50 AM CDT Images from the original note were not included. Cardiovascular Division, [facility] Provider: Cathleen Fish MD Patient Name: Prema Duckworth Ramses : 1940 Date of Service: 08/06/2020 Primary Care Physician: Ryann Ayala PA PROBLEM LIST: 1. Persistent atrial fibrillation ?? DCCV and [...] RVR and submassive pulmonary embolism ?? LVEF 67%, August 2019 3. Aortic stenosis, moderate 4. Submassive pulmonary embolism 05/2019, provoked, occurred 1 week after left distal femoral replacement for an open fracture 5. Right lower extremity DVT 05/2019 6. Hypertension 7. Diabetes mellitus type II, insulin dependent 8. Obstructive sleep apnea, on CPAP 9. Hypothyroidism 10. Left adrenal nodule Today I had the pleasure of speaking with in a telephone visit Prema A Pearce for her atrial fibrillation, moderate aortic stenosis, cardiomyopathy with recovered ejection fraction. The past few months have been difficult. She reports progressive exertional dyspnea and decreased activity due toher legs becoming weak. She has no motivation to do anything, has been diagnosed with terminal prostate cancer. She is concerned that she part of her symptoms may be due to depression. She is able to do daily tasks around her home without difficulty. She denies exertional chest discomfort, edema, orthopnea or pnd. Her blood pressure has been running higher and she noticed that she is AF all the time (noted when checking her BP). Her current symptoms are slightly different than her past AF symptoms. She has also gained ~ 20 lbs in the past year, not sure if symptoms are partly due to weight gain and age MEDICATIONS Current Outpatient Medications Medication Sig Dispense Refill [...] 30 capsule 11 ??? DULoxetine DR (CYMBALTA) 60 mg capsule Take 60 mg by mouth daily ??? ergocalciferol (VITAMIN D) 50,000 unit capsule Take 50,000 Units by mouth once a week ??? furosemide (LASIX) 20 mg tablet Take 1 [...] mg by mouth daily with breakfast ??? potassium chloride ER (KLOR-CON) 20 mEq CR tablet Take 1 tablet (20 mEq total) by mouth 2 (two)times a day (Patient taking differently: Take 20 mEq by mouth daily ) 180 tablet 3 ??? rosuvastatin (CRESTOR) 20 mg tablet Take 1 tablet (20 mg total) by mouth daily 90 tablet 0 ??? zolpidem (AMBIEN) 5 mg tablet Take 5 mg by mouth nightly at bedtime. ??? ipratropium-albuteroL (DUO-NEB) 0.5-2.5 mg/3 mL nebulizer solution Take 3 mL by nebulization every 6 (six) hours as needed for wheezing or shortness of breath (Patient not taking: Reported on 08/06/2020) ??? multivit,iron,minerals/lutein (CENTRUM SILVER ULTRA WOMEN'S ORAL) Take 1 tablet by mouth daily (Patient not taking: Reported on 08/06/2020) ??? spironolactone (ALDACTONE) 25 mg tablet (Patient not taking: Reported on 08/06/2020) No current facility-administered medications for this visit. ALLERGY Amlodipine, Prasanth inhibitors, Citalopram, Lisinopril, and Ozempic [semaglutide] FAMILY HISTORY family history includes Diabetes in her father and son; Heart attack in her father; Heart failure in her mother; Hypertension in her father; Sudden Cardiac in her mother. SOCIAL HISTORY No smoking, alcohol or drug use REVIEW OF SYSTEMS: General: No fever, chills, malaise, positive for fatigue Eyes: No alterations in visual acuity ENT: No alterations in auditory acuity, no sore throat Pulmonary: no complaints, see HPI Cardiac: no complaints, see HPI GI: No nausea, vomiting, diarrhea or constipation Musculoskeletal: No myalgias or arthralgias Skin: no rashes Neuro: No headaches, parathesias or focal neurological complaints Endocrine: No cold or heat intolerance Heme: no excessive bleeding or bruising All other review of systems are negative unless otherwise stated in the HPI. PHYSICAL EXAM: BP (!) 152/101 (BP Location: Left arm, Patient Position: Sitting) Pulse 92 Ht 157.5 cm (5' 2 ) Wt 95.6 kg (210 lb 12.8 oz) SpO2 97% BMI 38.56 kg/m?? Vital signs, weight, and intake/output reviewed. Vital signs, weight, and intake/output reviewed. Gen: well developed, well nourished, no acute distress HEENT: moist mucus membranes, no jugular venous distension, no carotid bruits Chest: Lungs clear to auscultation bilaterally Cardiac: Regular rate and rhythm,2/6 LESLEE at the USB Abdomen: Positive bowel sounds, soft, nontender, nondistended, no hepatosplenomegaly Extremities: Warm and well-perfused, positive pulses, no cyanosis, clubbing, or edema Skin: No rashes Neurologic: nonfocal exam Psychiatric: alert and oriented DIAGNOSTIC DATA: Echocardiogram 2009. Normal LV and RV size and systolic function. Borderline LVH. Pseudonormal diastolic dysfunction. Mild aortic sclerosis with normal proximal aorta. Mod LAE and mild-to-mod MR. Mild TR/DC with est PA pressure 41/9 mm Hg and normal IVC. Echocardiogram 05/2019: Normal LV chamber size, moderate systolic dysfunction, EF=38%. Marked LAE. Moderate MAC. Mildly dilated RV, moderate RV hypokinesis. Mild KAROL. Dilated inferior vena cava. Mild MR and TR. Moderate .12/18 mmHg, HOLLI 1.3, DI 16/38 Echocardiogram 08/2019 LV size is normal. Mild increase in LV wall thickness. LVEF 67%. Normal RV function. Calcified AoV with mod . Biatrial enlargement. Estimated PASP 19mmHg+RAp. RA pressure is normal. CT PE protocol IMPRESSION: 06/09/2019 1. Bilateral pulmonary emboli extending all segments and all lobes of the main pulmonary arteries. This is associated with right heart enlargement. This may be seen in the setting of right heart strain. 2. Bilateral pleural effusions. 3. Diffuse atherosclerotic disease of the aorta is present. Three-vessel coronary artery calcification present. 4. Indeterminant left adrenal nodule. Recommend follow up of the. Incidental adrenal nodule CT PE August 2019 ASSESSMENT & PLAN: 1. Cardiomyopathy, 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-mediated. EF recovered on echocardiogram in August 2019. Cardiomyopathy may have been due to AF with RVR in the setting of a submassive pulmonary embolism. ContinueCoreg 25 mg BID and losartan 25 mg BID. Continue furosemide 40 mg daily. 2. Exertional dyspnea. Will refer for chocardiogram- evaluate change in , pulmonary hypertension and a PET Stress test to evaluate for coronary ischemia. If testing does not explain her dyspnea, will discuss if pursing a rhythm control approach to her AF to see if her symptoms improve. 3. Atrial fibrillation. Persistent atrial fibrillation, rate controlled. She does not want to pursue antiarrhythmic therapy at this time. Continue Coreg 25 mg BID, diltiazem 120 and apixaban 5 mg BID. 4. Aortic stenosis, moderate: Stable. 5. Hypertension: Poorly controlled. Continue carvedilol 25 mg BID, losartan 25 mg BID. Start spironolactone 12.5 mg daily. BMP next week. 6. Left adrenal nodule. Noted on CT in May, repeat imaging recommended. Follow up with PCP. Thank you very much for letting me participate in the care of this patient. I will plan to see her back in follow up in 3 months. Please feel free to call with any questions or concerns. Sincerely, Cathleen Fish MD documented in this encounter Plan of Treatment Not on file documented as of this encounter Procedures Procedure Name Priority Date/Time Associated Diagnosis Comments PRO B-TYPE NATRIURETIC PEPTIDE Routine 08/20/2020 8:30 AM CDT Dyspnea, unspecified type Chronic heart failure with preserved ejection fraction (CMS/HCC) CBC WITH AUTO DIFFERENTIAL Routine 08/20/2020 8:30 AM CDT Dyspnea, unspecified type Chronic heart failure with preserved ejection fraction (CMS/HCC) LIPID PANEL Routine 08/20/2020 8:30 AM CDT Dyspnea, unspecified type Chronic heart failure with preserved ejection fraction (CMS/HCC) COMPREHENSIVE METABOLIC PANEL Routine 08/20/2020 8:30 AM CDT Dyspnea, unspecified type Chronic heart failure with preserved ejection fraction (CMS/HCC) documented in this encounter Results * TRANSTHORACIC ECHO (TTE) COMPLETE W DOPPLER/CF W CONTRAST (08/31/2020 11:30 AM CDT) Anatomical Region Laterality Modality Ultrasound 08/31/2020 10:3 0 AM CDT Narrative 08/31/2020 1:31 PM CDT Patient name: Prema Pearce Date of test: 08/31/2020 Type of test: TTE /[facility] #: [id number] Date of : 1940 (F) Zipper Lining Folder: Ingrid Jones [facility] Referring Physician: CATHLEEN FISH MD Contrast Agent: 0.4 ml Optison Administered, (2.6 ml wasted). Contrast Administered by: Tami uBsh RN Supervised/Interpreted by: Nathen Ortiz MD Diagnosis: Location: [facility] Reason for test: Dyspnea MV Structure: Normal, [...] 2=Hypo 3=Akinetic 4=Dyskin./Aneurysm 0=Not visualized) Parasternal Long [place]:MAS=1 BAS=1 MIL=1 NIGHAT=1 Parasternal Short [place]:MAS=1 MIS=1 PA=1 MIL=1 MAL=1 MA=1 Apical 4 Chambers:=1 MIS=1 BIS=1 BAL=1 MAL=1 AL=1 AC=1 Apical 2 Chambers:AI=1 PA=1 BI=1 BA=1 MA=1 AA=1 AC=1 LV Global [...] MD By signing this report, the attending beef pluck trimmer certifies that he or she has personally supervised and interpreted the echocardiogram and has reviewed and or edited and agrees with the written comments contained within the report. Procedure Note Nathen Ortiz MD - 08/31/2020 Patient name: Prema Pearce Date of test: 08/31/2020 Type of test: TTE w/Doppler [facility] #: [id number] Date of : 1940 (F) Zipper Lining Folder[facility] Ingrid [facility] Referring Physician: CATHLEEN FISH MD Contrast Agent: 0.4 ml Optison Administered, (2.6 ml wasted). Contrast Administered by: Tami Bush RN Supervised/Interpreted by: Nathen Ortiz MD Diagnosis: Location: [facility] Reason for test: Dyspnea MV Structure: Normal, [...] 2=Hypo 3=Akinetic 4=Dyskin./Aneurysm 0=Not visualized) Parasternal Long [place]:MAS=1 BAS=1 MIL=1 NIGHAT=1 Parasternal Short [place]:MAS=1 MIS=1 PA=1 MIL=1 MAL=1 MA=1 Apical 4 Chambers:=1 MIS=1 BIS=1 BAL=1 MAL=1 AL=1 AC=1 Apical 2 Chambers:AI=1 PA=1 BI=1 BA=1 MA=1 AA=1 AC=1 LV Global [...] MD By signing this report, the attending beef pluck trimmer certifies that he or she has personally supervised and interpreted the echocardiogram and has reviewed and or edited and agrees with the written comments contained within the report. Result [facility] Cathleen Mccormick MD CV ECHO PROCEDUR ES Final Result * PET/CT Myocardial Perfusion Imaging (Multiple) (08/23/2020 [...] distribution consistent with above ischemia. ?? Dr. Lau and Kathy ??also participated in the interpretation [...] it. Electronically signed by: Nick Rai M.D. us Cathleen Mccormick MD [facility] PET PROCEDUR ES Final Result * (ABNORMAL) Lipid panel (08/20/2020 8:30 AM CDT) Cholesterol 106 <200 mg/dL [facility] HDL 36(L) > OR = 50 mg/dL [facility] Triglycerides 174(H) <150 mg/dL [facility] LDL 45 mg/dL (calc) [facility] Comment: Reference range: <100 Desirable range <100 mg/dL for primary prevention; ?? <70 mg/dL for patients with CHD or diabetic patients with > or = 2 CHD risk factors. LDL-C is now calculated using the Buzz-Maira calculation, which is a validated novel method providing better accuracy than the Friedewald equation in the estimation of LDL-C. Buzz PUENTE et al. WILFRIDO. 2013;310(19): 5264-3392 (http://education.[employer]YouTab/faq/VHG430) Chol/HDL ratio 2.9 <5.0 (calc) [facility] Non-HDL, (LDL+VLDL) 70 <130 mg/dL (calc) [facility] Comment: For patients with diabetes plus 1 major ASCVD risk factor, treating to a non-HDL-C goal of <100 mg/dL (LDL-C of <70 mg/dL) is considered a therapeutic option. Blood specimen (specimen) 08/20/2020 8:30 AM CDT 08/20/2020 8:30 AM CDT Narrative [facility] - 08/21/2020 2:22 PM CDT FASTING:YES FASTING: YES Cathleen Mccormick MD LAB BLOOD ORDERA BLES Final Result [facility] [address] [place] [id number] * (ABNORMAL) Comprehensive metabolic panel (08/20/2020 8:30 AM CDT) Glucose 222(H) 65 - 99 mg/dL [facility] Comment: ? Fasting reference interval For someone without known diabetes, a glucose value >125 mg/dL indicates that they may have diabetes and this should be confirmed with a follow-up test. BUN 20 7 - 25 mg/dL [facility] Creatinine 0.74 0.60 - 0.93 mg/dL [facility] Comment: For patients >49 years of age, the reference limit for Creatinine is approximately 13% higher for people identified as -Somali. eGFR NON-AFR. CYMRO 77 > OR = 60 mL/min/1 .73m2 [facility] EGFR 89 > OR = 60 mL/min/1 .73m2 [facility] BUN/creat ratio NOT APPLICABLE 6 - 22 (calc) [facility] Sodium 133(L) 135 - 146 mmol/L [facility] Potassium, pl 5.1 3.5 - 5.3 mmol/L [facility] Chloride 99 98 - 110 mmol/L [facility] CO2 26 20 - 32 mmol/L [facility] Calcium 10.3 8.6 - 10.4 mg/dL [facility] Protein, sr 7.4 6.1 - 8.1 g/dL [facility] Albumin 4.4 3.6 - 5.1 g/dL [facility] GLOBULIN 3.0 1.9 - 3.7 g/dL (calc) [facility] Alb/glob ratio 1.5 1.0 - 2.5 (calc) [facility] Bilirubin, total 0.6 0.2 - 1.2 mg/dL [facility] Alk phos 116 37 - 153 U/L [facility] AST 14 10 - 35 U/L [facility] ALT (SGPT) 11 6 - 29 U/L [facility] Blood specimen (specimen) 08/20/2020 8:30 AM CDT 08/20/2020 8:30 AM CDT Narrative [facility] - 08/21/2020 2:22 PM CDT FASTING:YES FASTING: YES Cathleen Mccormick MD LAB BLOOD ORDERA BLES Final Result [facility] [address] [place] [address] * (ABNORMAL) CBC with auto differential (08/20/2020 8:30 AM CDT) WBC 6.3 3.8 - 10.8 Thousand/u L [facility] RBC, POC 4.34 3.80 - 5.10 Million/uL [facility] Hgb 12.6 11.7 - 15.5 g/dL [facility] Hct 40.4 35.0 - 45.0 % [facility] MCV 93.1 80.0 - 100.0 fL [facility] MCH 29.0 27.0 - 33.0 pg [facility] MCHC 31.2(L) 32.0 - 36.0 g/dL [facility] Rdw 12.6 11.0 - 15.0 % [facility] Platelets 288 140 - 400 Thousand/u L [facility] MPV 10.1 7.5 - 12.5 fL [facility] Neutrophils, abs 3,730 1,500 - 7,800 cells/uL [facility] Lymphocytes, abs 1,859 850 - 3,900 cells/uL [facility] Monocyte abs 510 200 - 950 cells/uL [facility] Eosinophils, abs 170 15 - 500 cells/uL [facility] Basophils, abs 32 0 - 200 cells/uL [facility] Neutrophils 59.2 % [facility] Lymphocyte pct 29.5 % [facility] Monocytes 8.1 % [facility] Eosinophils 2.7 % [facility] Basophils 0.5 % [facility] Blood specimen (specimen) 08/20/2020 8:30 AM CDT 08/20/2020 8:30 AM CDT Narrative [facility] - 08/21/2020 2:22 PM CDT FASTING:YES FASTING: YES Cathleen Mccormick MD LAB BLOOD ORDERA BLES Final Result Performing Organization Address [facility] Co de Phone Number [facility] [address] [place] [address] * (ABNORMAL) Pro B-type natriuretic peptide (08/20/2020 8:30 AM CDT) B type natriuretic peptide 117(H) <100 pg/mL [facility] Comment: BNP levels increase with age in the general population with the highest values seen in individuals greater than 75 years of age. Reference: J. Am. Tiffanie. Cardiol. 2002; 40:976-982. Blood specimen (specimen) 08/20/2020 8:30 AM CDT 08/20/2020 8:30 AM CDT Narrative [facility] - 08/21/2020 2:22 PM CDT FASTING:YES FASTING: YES Cathleen Mccormick MD LAB BLOOD ORDERA BLES Final Result Performing Organization Address [facility] Co de Phone Number [facility] [address] [place] [address] documented in this encounter Visit Diagnoses Diagnosis Acute combined systolic and diastolic heart failure (CMS/HCC) (HCC)- Primary Acute combined systolic and diastolic heart failure Dyspnea, unspecified type Chronic heart failure with preserved ejection fraction (CMS/HCC) (HCC) Dyspnea, unspecified type Chronic heart failure with preserved ejection fraction (CMS/HCC) (HCC) Dyspnea, unspecified type Chronic heart failure with preserved ejection fraction (CMS/HCC) (HCC) documented in this encounter Discontinued Medications Medication Sig Discontinue Reason Start Date End Da te losartan (COZAAR) 50 mg tablet Take 1 tablet (50 mg total) by mouth daily Duplicate order 10/07/2019 08/06/2020 spironolactone (ALDACTONE) 25 mg tablet 04/27/2020 021 furosemide (LASIX) 20 mg tablet Take 1 tablet (20 mg total) by mouth daily 04/27/2020 08/06/2020 documented as of this encounter Care Teams Rn Lpn Cna Relationship Specialty Start Date End Date Ryann Galdamez PA PCP - General Soil Tester 07/16/20 04/01/21 documented as of this encounter
--- OUTSIDE RECORDS SUMMARY | 2024-03-13 01:14 | XMS_ITS | Encounter Summary ---
Author Organization [facility] Address 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 Gender Identity Not on file Sexual Orientation Not on file documented as of this encounter Plan of Treatment Not on file documented as of this encounter Procedures Procedure Name Priority Date/Time Associated Diagnosis Comments SCAN - LABS 07/14/2019 documented in this encounter Results * SCAN - LABS (07/14/2019) us Provider Scanning Final Result documented in this encounter Visit Diagnoses Not on filedocumented in this encounter Care Teams Shoe Sticks Repairer Relationship Specialty Start Date End Date Wilber Cleaning Jr., MD [address] [place] [address] PCP - General 07/03/16 07/15/20 Ryann Galdamez PA [address] [place] [address] PCP - General Aircraft Painter Apprentice 07/16/20 04/01/21 documented as of this encounter
--- OUTSIDE RECORDS SUMMARY | 2024-03-13 01:14 | XMS_ITS | Encounter Summary ---
Author Organization [facility] Address [address] [place] [address] Phone Care Team Providers Care Office Rep Name Role Phone Hermila Calhoun MD, Wilber A. Primary Care Provider Encounter Details Date Type Department Care Team (Late st Contact Info) Description 08/15/2019 Telephone [facility] Cardiology [address] [facility] [address] [facility] [address] [place] [address] [place] [address] Cathleen Walker MD [address] [facility] [address] [place], [place] [id number] Social History Tobacco Use Types Packs/Day Years Used Date Smoking Tobacco: Never Smokeless Tobacco: Never Alcohol Use Standard Drinks/Week Comments Yes 0 (1 standard drink = 0.6 oz pur e alcohol) 1/mo Comments No Sex and Gender Information Value Date Recorded Sex Assigned at Not on file 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 She has not been taking [address] Walker requested. She has been taking 20 mg BID. Pt will increase to 60 mg daily and have requested lab work completed on next Thursday, 08/21. Pt confirmed upcoming echo apt. Pt verbalizes understanding. No further questions. * Telephone Encounter - Nita Mosley BS - 08/15/2019 9:25 AM CDT ABE PT CALLING TO CLARIFY THE DOSAGE ON HER FEROSEMIDE SCRIPT. PLEASE CALL PT TO DISCUSS. documented in this encounter Plan of Treatment Not on file documented as of this encounter Visit Diagnoses Not on filedocumented in this encounter Care Teams Office Rep Relationship Specialty Start Date End Date Wilber Cleaning Jr., MD [address] [place] [id number] PCP - General 07/03/16 07/15/20 documented as of this encounter
--- OUTSIDE RECORDS SUMMARY | 2024-03-13 01:14 | XMS_ITS | Encounter Summary ---
Author Organization [facility] Address [address] [place] [address] Phone Care Team Providers Care Aluminum Siding Applicator Name Role Phone Hermila Calhoun MD, Wilber A. Primary Care Provider Encounter Details Date Type Department Care Team (Late st Contact Info) Description 11/02/2019 Telephone [facility] Cardiology [address] 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 Gender Identity Not on file Sexual Orientation Not on file documented as of this encounter Miscellaneous Notes * Telephone Encounter - Paulina Bright RN - 11/10/2019 11:18 AM CDT Spoke w/ pt See result notes * Telephone Encounter - Yasmin Soto - 11/09/2019 4:14 PM CDT Aaron Pt states returning call * Telephone Encounter - Paulina Bright RN - 11/02/2019 1:11 PM CDT Spoke w/ pt See result notes * Telephone Encounter - Yasmin Soto - 11/02/2019 12:25 PM CDT Aaron Pt states returning call documented in this encounter Plan of Treatment Not on file documented as of this encounter Visit Diagnoses Not on filedocumented in this encounter Care Teams Aluminum Siding Applicator Relationship Specialty Start Date End Date Wilber Cleaning Jr., MD [address] [place] [address] PCP - General 07/03/16 07/15/20 documented as of this encounter
--- OUTSIDE RECORDS SUMMARY | 2024-03-13 01:14 | XMS_ITS | Encounter Summary ---
Author Organization [facility] Address [address] [place] [address] Phone Care Team Providers Care Print Finishing Worker Name Role Phone Hermila Calhoun MD, Wilber Duckworth. Primary Care Provider Reason for Visit * Reason Onset Date Comments Appointment 12/07/2019 Encounter Details Date Type Department Care Team (Late st Contact Info) Description 12/07/2019 Telephone [facility] Cardiology [address] [facility] 8th [place] [address] [place] [address] Lina Juarez Appointment Social History Tobacco Use Types Packs/Day Years Used Date Smoking Tobacco: Never Smokeless Tobacco: Never Alcohol Use Standard Drinks/Week Comments Yes 0 (1 standard drink = 0.6 oz pur e alcohol) 1/mo Comments No Sex and Gender Information Value Date Recorded Sex Assigned at Not on file 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 Asked that she c/b to confirm. * Telephone Encounter - Lina Juarez - 12/07/2019 11:37 AM CDT Please reschedule 12/12 phone apt, is on Consults at this time. Thank you! documented in this encounter Plan of Treatment Not on file documented as of this encounter Visit Diagnoses Not on filedocumented in this encounter Care Teams Print Finishing Worker Relationship Specialty Start Date End Date Wilber Cleaning Jr., MD [address] [place] [address] PCP - General 07/03/16 07/15/20 documented as of this encounter
--- OUTSIDE RECORDS SUMMARY | 2024-03-13 01:14 | XMS_ITS | Encounter Summary ---
Author Organization [facility] Address [address] [place] [address] Phone Care Team Providers Care Compounding Technician Name Role Phone Hermila Calhoun MD, Wilber Martinez Primary Care Provider Reason for Visit * Consultation (Routine) - Canceled Specialty Diagnoses / Procedures Referred By Contac t Referred To Contact Cardiology Diagnoses Chronic diastolic heart failure (HCC) [place] [address] [place] [address] Phone: tel: fax: [facility] (All Locations) Referral ID Status Reason Start Date Expiration Date Visits Requested Visits Authorized [id number] Canceled Specialty Services Required 12/05/2019 03/15/2020 2 2 Encounter Details Date Type Department Care Team (Late st Contact Info) Description 01/13/2020 8:50 AM CDT Telemedicine [facility] Cardiology [address] [facility] 8th [place] [address] [place] [id number] Cathleen Walker MD [address] [facility] [address] [place] [address] Atrial fibrillation, unspecified type (CMS/HCC) (Primary Dx); Essential hypertension; Anticoagulation management encounter Social History Tobacco Use Types Packs/Day Years Used Date Smoking Tobacco: Never Smokeless Tobacco: Never Alcohol Use Standard Drinks/Week Comments Yes 0 (1 standard drink = 0.6 oz pur e alcohol) 1/mo Comments No Sex and Gender Information Value Date Recorded Sex Assigned at Not on file 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 Gender Identity Not on file Sexual Orientation Not on file documented as of this encounter Last Filed Vital Signs Vital Sign Reading Time Taken Comments Blood Pressure 142/86 01/13/2020 8:12 AM CDT Pulse 80 01/13/2020 8:12 AM CDT Temperature - - Respiratory Rate - - Oxygen Saturation - - Inhaled Oxygen Concentration - - Weight - - Height - - Body Mass Index - - documented in this encounter Patient Instructions * Patient Instructions* Cathleen Walker MD - 01/13/2020 8:50 AM CDT Stop aspirin 81 mg daily Return in 3 months documented in this encounter Progress Notes * Cathleen Walker MD - 01/13/2020 8:50 AM CDT Images from the original note were not included. This was a telemedicine visit with Prema Pearce alone which took place via Telephone. During the visit, I was located at home and the patient was located at the [facility] in the [facility]. The patient visit started at 0915 and ended at 926. Total encounter time was 15 minutes, which includes time spent today on pre charting, the patient encounter, and post charting. The patient: has been informed that the visit may not be secure and acknowledged the information. The option of participating in a telephone or video visit during the [facility] public [facility] explained to them. After being given an opportunity to ask questions about and discuss this type of visit, they verbally consented to proceeding with the telephone/video visit and understand thatthis service replaces an office visit. Cathleen Walker MD Provider: Cathleen Walker MD Patient Name: Prema Pearce : 1940 Date of Service: 01/13/2020 Referring: Hermila PROBLEM LIST: 1. Atrial fibrillation ?? DCCV and sotalol intiation ~ 2009, discontinued 12/2018 ?? Treated with rate control until submassive pulmonary emboli in 05/2019, amiodarone initiated ?? Amiodarone discontinued 06/2019 due GI side effects 2. Cardiomyopathy, recovered ejection fraction ?? Echocardiogram 05/2019 with LVEF [...] CPAP 9. Hypothyroidism 10. Left adrenal nodule Dear Wilber Cleaning Jr., MD, Today I had the pleasure of speaking with in a telephone visit Prema Pearce for her atrial fibrillation, moderate aortic stenosis and cardiomyopathy with recovered ejection fraction, occurring in the setting of AF with RVR and submassive pulmonary embolism. She feels excellent. Dizziness and fatigue resolved with improved with optimization of her blood pressure regimen. She does not have any complaints today. No orthopnea, pnd, edema, exertional chest discomfort or palpitations. Blood pressure readings for the past 3 days are as follow: 135/79 mmHg, 70 108/67 mmHg, 70 125/70 mmHg, 80 PAST MEDICAL HISTORY Past Medical History: Diagnosis Date ??? Atrial fibrillation (CMS/HCC) ??? Dyslipidemia ??? Hypertension ??? Hypothyroidism ??? Mitral regurgitation ??? Obesity ??? PONV (postoperative nausea and vomiting) ??? Sleep apnea MEDICATIONS Current Outpatient Medications Medication Sig ??? acetaminophen (TYLENOL) 500 mg tablet Take 1,000 mg by mouth as needed for pain ??? apixaban (ELIQUIS) 5 mg tablet Take 1 tablet (5 mg total) by mouth 2 (two) times a day ??? aspirin 81 mg chewable tablet Take 1 tablet (81 mg total) by mouth daily ??? carvediloL (COREG) 25 mg tablet Take 1 tablet (25 mg total) by mouth 2 (two) times a day with meals ??? dilTIAZem CD/XR/XT (CARDIZEM CD,DILACOR XR) 120 mg 24 hr capsule Take 1 capsule (120 mg total) by mouth daily ??? DULoxetine DR (CYMBALTA) 60 mg capsule Take 60 mg by mouth daily ??? ergocalciferol (VITAMIN D) 50,000 unit capsule Take 50,000 Units by mouth once a week ??? furosemide (LASIX) 20 mg tablet Take 2 tablets (40 mg total) by mouth daily ??? ipratropium-albuteroL (DUO-NEB) 0.5-2.5 mg/3 mL nebulizer solution Take 3 mL by nebulization every 6 (six) hours as needed for wheezing or shortness of breath ??? levothyroxine (SYNTHROID) 50 mcg tablet Take 25 mcg by mouth daily ??? losartan (COZAAR) 50 mg tablet Take 1 tablet (50 mg total) by mouth daily ??? metFORMIN XR (GLUCOPHAGE [...] tablet (20 mg total) by mouth daily ??? spironolactone (ALDACTONE) 25 mg tablet Take 1 tablet (25 mg total) by mouth daily ??? zolpidem (AMBIEN) 5 mg tablet Take 5 mg by mouth nightly at bedtime. ALLERGY Amlodipine, Prasanth inhibitors, Citalopram, Lisinopril, and [...] stated in the HPI. PHYSICAL EXAM: BP 142/86 Pulse 80 Vital signs, weight, and intake/output reviewed. Telephone visit No conversational dyspnea Alert and oriented x 4 DIAGNOSTIC DATA: Echocardiogram 2009. Normal LV and RV size and systolic function. Borderline LVH. Pseudonormal diastolic dysfunction. Mild aortic sclerosis with normal proximal aorta. Mod LAE and mild-to-mod MR. Mild TR/CA with est PA pressure 41/9 mm Hg [...] PE August 2019 ASSESSMENT & PLAN: 1. Cardiomyopathy. EF recovered on echocardiogram in August 2019. Cardiomyopathy may have been due toAF with RVR in the setting of a submassive pulmonary embolism. Continue Coreg 25 mg BID, decrease losartan to 50 mg daily. 2. Atrial fibrillation. Persistent atrial fibrillation, rare control. She does not want to pursue antiarrhythmic therapy at this time. Continue Coreg 25 mg BID, diltiazem 240 and apixaban 5 mg BID. Stop aspirin 81 mg daily. 3. Aortic stenosis, moderate: Stable. Will plan for a repeat echocardiogram in 1 year. 4. Hypertension: Continue carvedilol 25 mg BID, decrease losartan to 50 mg daily. 5. Left adrenal nodule. Noted on CT in May, repeat imaging recommended. Follow up with PCP. Thank you very much for letting me participate in the care of this patient. I will plan to see her back in follow up in 3 months. Please feel free to call with any questions or concerns. Sincerely, Cathleen Walker MD documented in this encounter Plan of Treatment Not on file documented as of this encounter Visit Diagnoses Diagnosis Atrial fibrillation, unspecified type (HCC)- Primary Essential hypertension Unspecified essential hypertension Anticoagulation management encounter Encounter for therapeutic drug monitoring documented in this encounter Discontinued Medications Medication Sig Discontinue Reason Start Date End Da te cholecalciferol, vitamin D3, (VITAMIN D3 ORAL) Take 400 Units by mouth daily 01/13/[address] (PROTONIX) 40 mg EC tabletIndications:Treatm ent of Non-Bleeding Gastric Disorder Take 1 tablet (40 mg total) by mouth daily 06/06/2019 01/13/2020 documented as of this encounter Care Teams Compounding Technician Relationship Specialty Start Date End Date Wilber Cleaning Jr., MD [address] [place] [address] PCP - General 07/03/16 07/15/20 documented as of this encounter
--- OUTSIDE RECORDS SUMMARY | 2024-03-13 01:14 | XMS_ITS | Encounter Summary ---
Author Organization [facility] Healthcare Address [address] [place] [address] Care Team Providers Care Unix Manager Name Role Phone Hermila Calohun MD, Wilber Martinez Primary Care Provider Reason for Referral * Diagnostic Imaging (Routine) - Closed Specialty Diagnoses / Procedures Referred By Indra muñoz Referred To Contact Diagnoses 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 Procedures XR Knee Left 4 or More Views Kaveh Charles MD Phone: tel: fax: [address] [address] Referral ID Status Reason Start Date Expiration Date Visits Re quested Visits Authorized [id number] Closed 06/10/2019 12/19/2020 1 1 Reason for Visit * Diagnostic Imaging (Routine) - Closed Specialty Diagnoses / Procedures Referred By Indra muñoz Referred To Contact Diagnoses 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 Procedures XR Knee Left 4 or More Views Kaveh Charles MD Phone: tel: fax: [address] [address] Referral ID Status Reason Start Date Expiration Date Visits Re quested Visits Authorized [id number] Closed 06/10/2019 12/19/2020 1 1 Encounter Details Date Type Department Care Team (Latest Contact Info) Description 07/21/2019 10:06 AM CDT - 07/21/2019 11:59 PM CDT Hospital Encounter [facility] [address] [place] [address] Kaveh Charles MD [address] [place] [address] 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 Discharge Disposition: Discharge to home or self care Social History Tobacco Use Types Packs/Day Years Used Date Smoking Tobacco: Never Smokeless Tobacco: Never Alcohol Use Standard Drinks/Week Comments Yes 0 (1 standard drink = 0.6 oz pur e alcohol) 1/mo Comments No Sex and Gender Information Value Date Recorded Sex Assigned at Not on file 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 Gender Identity Not on file Sexual Orientation Not on file documented as of this encounter Medications at Time of Discharge oxyCODONE-acetamin ophen (PERCOCET) 5-325 mg per tabletIndications: Pain Take 1-2 tablets by mouth every 4 (four) hours as needed for pain 56 tablet 0 07/25/19 20 acetaminophen (TYLENOL) 500 mg tablet Take 2 tablets (1,000 mg total) by mouth as needed for pain When Needed 10/10/19 23 apixaban (ELIQUIS) 5 mg tabletIndications: deep venous thrombosis Take 1 tablet (5 mg total) by mouth 2 (two) times a day 60 tablet 11 0 06/27/19 21 aspirin 81 mg chewable tablet Take 1 tablet (81 mg total) by mouth daily 30 tablet 11 0 01/13/20 20 busPIRone (BUSPAR) 5 mg tabletIndications: Generalized Anxiety Disorder Take 5 mg by mouth daily Take 5mg by mouth daily x 1 week, then increase to 5mg twice daily 0 07/29/19 20 carvediloL (COREG) 25 mg tablet Take 1 tablet (25 mg total) by mouth 2 (two) times a day with meals 60 tablet 11 0 07/03/19 21 cholecalciferol, vitamin D3, (VITAMIN D3 ORAL) Take 400 Units by mouth daily 01/13/[address] (CYMBALTA) 60 mg capsule Take 60 mg by mouth daily 08/22/19 21 ergocalciferol (VITAMIN D) 50,000 unit capsule Take 50,000 Units by mouth once a week 0 09/12/19 21 furosemide (LASIX) 20 mg tablet Take 1 tablet (20 mg total) by mouth 2 (two) times a day 60 tablet 0 07/29/19 20 furosemide (LASIX) 20 mg tablet 0 07/29/19 20 insulin aspart U-100 (NovoLOG) 100 unit/mL (3 mL) insulin pen Administer subcutaneously per sliding scale 07/29/19 20 ipratropium-albute roL (DUO-NEB) 0.5-2.5 mg/3 mL nebulizer solutionIndication s:Chronic Obstructive Pulmonary Disease with Bronchospasms Take 3 mL by nebulization every 6 (six) hours as needed for wheezing or shortness of breath 09/12/19 21 levothyroxine (SYNTHROID) 25 mcg tablet 0 07/29/19 20 levothyroxine (SYNTHROID) 50 mcg tablet Take 25 mcg by mouth 2 (two) times a day 1 9 10/30/19 21 losartan (COZAAR) 100 mg tablet Take 100 mg by mouth daily 10/07/19 20 metFORMIN XR (GLUCOPHAGE XR) 500 mg 24 hr tablet Take 1,000 mg by mouth nightly 09/19/19 21 multivit,iron,mine rals/lutein (CENTRUM SILVER ULTRA WOMEN'S ORAL) Take 1 tablet by mouth daily 09/12/[address] (PROTONIX) 40 mg EC tabletIndications: Treatment of Non-Bleeding Gastric Disorder Take 1 tablet (40 mg total) by mouth daily 30 tablet 0 01/13/20 20 potassium chloride ER (KLOR-CON) 20 mEq CR tablet Take 20 mEq by mouth 2 (two) times a day 01/07/20 21 rosuvastatin (CRESTOR) 20 mg tablet Take 1 tablet (20 mg total) by mouth daily 30 tablet 11 0 06/21/19 21 zolpidem (AMBIEN) 5 mg tablet Take 5 mg by mouth nightly at bedtime. 0 09/19/19 21 documented as of this encounter Discharge Disposition Disposition Code Departure Means Destination Discharge to home or self care documented in this encounter Plan of Treatment Not on file documented as of this encounter Procedures Procedure Name Priority Date/Time Associated Diagnosis Comments XR KNEE LEFT 4 OR MORE VIEWS Schedule Routine, Read Routine (OP Routine) 07/21/2019 10:26 AM CDT 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 documented in this encounter Results * XR Knee Left 4 or More Views (07/21/2019 10:26 AM CDT) Anatomical Region Laterality Modality Lower Extremities, Knee Left Computed Radiography 07/21/2019 10:3 0 AM CDT Impressions 07/21/2019 10:30 AM CDT Unchanged distal femoral endoprosthesis and hinge knee arthroplasty in near-anatomic alignment. Electronically signed by: Mario Cardoza M.D. Narrative 07/21/2019 10:30 AM CDT XR KNEE LEFT 4 OR MORE VIEWS HISTORY: ??Left knee arthroplasty. FINDINGS: ??4 views of the left knee are obtained and compared with 06/10/2019. Redemonstrated is distal left femoral resection with endoprosthesis and hinged arthroplasty of the left knee. Instrumentation is intact. There is no periprosthetic lucency or fracture. Alignment is normal. A moderate joint effusion is present. Procedure Note Mario Cardoza MD - 07/21/2019 XR KNEE LEFT 4 OR MORE VIEWS HISTORY: Left knee arthroplasty. FINDINGS: 4 views of the left knee are obtained and compared with 06/10/2019. Redemonstrated is distal left femoral resection with endoprosthesis and hinged arthroplasty of the left knee. Instrumentation is intact. There is no periprosthetic lucency or fracture. Alignment is normal. A moderate joint effusion is present. IMPRESSION: Unchanged distal femoral endoprosthesis and hinge knee arthroplasty in near-anatomic alignment. Electronically signed by: Mario Cardoza M.D. Kaveh Charles MD IMG XR PROCEDURES Final Re sult documented in this encounter Visit Diagnoses Diagnosis 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 documented in this encounter Care Teams Unix Manager Relationship Specialty Start Date End Date Wilber Cleaning Jr., MD [address] [place] [address] PCP - General 07/03/16 07/15/20 documented as of this encounter
--- OUTSIDE RECORDS SUMMARY | 2024-03-13 01:14 | XMS_ITS | Encounter Summary ---
Author Organization [facility] Address [address] [place] [address] Phone Care Team Providers Care Cryptographic Machine Operator Name Role Phone Hermila Calhoun MD, Wilber AYumiko Primary Care Provider Encounter Details Date Type Department Care Team (Late st Contact Info) Description 08/05/[address] 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 * Telephone Encounter - Paulina Bright RN - 08/05/2019 9:20 AM CDT ----- Message from Paulina Bright RN sent at 07/29/2019 2:15 PM CDT ----- Pt needs echo sched Ov DW 07/28 documented in this encounter Plan of Treatment Not on file documented as of this encounter Visit Diagnoses Not on filedocumented in this encounter Care Teams Cryptographic Machine Operator Relationship Specialty Start Date End Date Wilber Cleaning Jr., MD [facility] [place] [address] PCP - General 07/03/16 07/15/20 documented as of this encounter
--- OUTSIDE RECORDS SUMMARY | 2024-03-13 01:14 | XMS_ITS | Encounter Summary ---
Author Organization [facility] Address [address] [place] [address] Phone Care Team Providers Care Uniforms Sales Representative Name Role Phone Hermila Calhoun MD, Wilber Duckworth. Primary Care Provider Encounter Details Date Type Department Care Team (Latest Contact Info) Description 06/28/2019 Anticoagulation Telephone Call [facility] Cardiology [facility] Medical Office Building [address] [place] [address] Cathleen Walker MD [address] [facility] [address] [place] [address] Atrial fibrillation, unspecified type (CMS/HCC) Social History Tobacco Use Types Packs/Day Years Used Date Smoking Tobacco: Never Smokeless Tobacco: Never Alcohol Use Standard Drinks/Week Comments Yes 0 (1 standard drink = 0.6 oz pur e alcohol) 1/mo Comments No Sex and Gender Information Value Date Recorded Sex Assigned at Not on file 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
--- OUTSIDE RECORDS SUMMARY | 2024-03-13 01:14 | XMS_ITS | Encounter Summary ---
Author Organization [facility] Address [address] [place] [address] Phone Care Team Providers Care Corner Cutter Name Role Phone Hermila Calhoun MD, Wilber Martinez Primary Care Provider Encounter Details Date Type Department Care Team (Late st Contact Info) Description 07/13/2019 Telephone [facility] Cardiology [address] 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 Gender Identity Not on file Sexual Orientation Not on file documented as of this encounter Ordered Prescriptions Prescription Sig Dispense Quantity Refills Last Filled Start Date End Date carvediloL (COREG) 25 mg tablet Take 1 tablet (25 mg total) by mouth 2 (two) times a day with meals 60 tablet 11 07/13/2019 07/02/2020 documented in this encounter Miscellaneous Notes * Telephone Encounter - Paulina Bright RN - 07/15/2019 4:54 PM CDT Completed and reviewed * Telephone Encounter - Paulina Bright RN - 07/13/2019 4:09 PM CDT Increased dose, sent to pharm Ordered labs for [facility] * Telephone Encounter - Cathleen Walker MD - 07/13/2019 3:58 PM CDT Spoke with patient. Overall not feeling well, low energy, nausea, bloating tremor, poor appetite. She really noticed this after her hospitalizations in May. No dyspnea or lower extremity edema. BP is not well controlled, 137-180/80-100, pulse in the 90's. Amiodarone commonly causes gastrointestinal symptoms. Advised her to stop amiodarone for now, increase coreg to 25 mg BID and [facility] the [facility]: CBC, CMP, pro-BNP and TSH. Can we send a prescription for Coreg 25 mg BID to her pharmacy, [facility] in [place] and lab order to her [facility]. Thanks. * Telephone Encounter - Paulina Bright RN - 07/13/2019 12:16 PM CDT Spoke w/ pt She has had a recent knee replacement, was in SNF and hospitalized at one point She answered and noted tremble in voice She states she is upset b/c she has had the sx as noted below going back from last summer She did her research and thinks it is the amiodarone I note she had increased dose for 2wks, beginning of June, then to reduce to 200mg daily She states she is taking 200mg BID I corrected that She denies being on Buspar and does take metformin, per her med list She does not know what her BS runs She had therapy today, BP was 120s/? And was told by therapist her HR was good but irregular (hasafib) She took her BP early this morning 149/86 HR 89 at that time She is asking for something to be done , as she does not want to continue these sx and it is effecting her everyday activities Recommendations? * Telephone Encounter - Nadiya Craft - 07/13/2019 11:33 AM CDT Aaron She said she is having a reaction to one of the medicines you have her on. She is having Trembling,nauseated, just not herself documented in this encounter Plan of Treatment Not on file documented as of this encounter Procedures Procedure Name Priority Date/Time Associated Diagnosis Comments PRO B-TYPE NATRIURETIC PEPTIDE Routine 07/14/2019 11:15 AM CDT Dyspnea, unspecified type AF (paroxysmal atrial fibrillation) (CMS/HCC) CBC WITH AUTO DIFFERENTIAL Routine 07/14/2019 11:15 AM CDT Dyspnea, unspecified type AF (paroxysmal atrial fibrillation) (CMS/HCC) TSH Routine 07/14/2019 11:15 AM CDT Dyspnea, unspecified type AF (paroxysmal atrial fibrillation) (CMS/HCC) COMPREHENSIVE METABOLIC PANEL Routine 07/14/2019 11:15 AM CDT Dyspnea, unspecified type AF (paroxysmal atrial fibrillation) (CMS/HCC) documented in this encounter Results * (ABNORMAL) TSH (07/14/2019 11:15 AM CDT) TSH 9.90(H) 0.40 - 4.50 mIU/L [facility] [place] Blood specimen (specimen) 07/14/2019 11:15 AM CDT 07/14/2019 11:16 AM CDT Narrative [facility] - 07/15/2019 12:12 PM CDT FASTING:NO FASTING: NO Resulting Agency Comment Performing Organization Information: ?Site ID: [email or web address] ?Name: Julio C[facility]ar Hoang ?Address: [facility] [place] [address] ?Director: Darryl Keys D.O., MPH Cathleen Mccormick MD LAB BLOOD ORDERA BLES Final Result Performing Organization Address [facility] de Phone Number JULIO C[facility] [place] * (ABNORMAL) Pro B-type natriuretic peptide (07/14/2019 11:15 AM CDT) Pathologist [facility] B type natriuretic peptide 428(H) <100 pg/mL [facility] [place] Comment: BNP levels increase with age in the general population with the highest values seen in individuals greater than 75 years of age. Reference: J. Am. Tiffanie. Cardiol. 2002; 40:976-982. Blood specimen (specimen) 07/14/2019 11:15 AM CDT 07/14/2019 11:16 AM CDT Narrative [facility] - 07/15/2019 12:12 PM CDT FASTING:NO FASTING: NO Resulting Agency Comment Performing Organization Information: ?Site ID: [id number] ?Name: Julio César Hoang ?Address: [facility] [place] [address] ?Director: Darryl Keys D.O., MPH Cathleen Mccormick MD LAB BLOOD ORDERA BLES Final Result Performing Organization Address [facility] Co de Phone Number [facility] [place] * (ABNORMAL) CBC with auto differential (07/14/2019 11:15 AM CDT) Pathologist [facility] WBC 7.8 3.8 - 10.8 Thousand/u L [facility] [place] RBC, POC 3.46(L) 3.80 - 5.10 Million/uL [facility] [place] Hgb 9.6(L) 11.7 - 15.5 g/dL [facility] [place] Hct 30.4(L) 35.0 - 45.0 % [facility] [place] MCV 87.9 80.0 - 100.0 fL [facility] [place] MCH 27.7 27.0 - 33.0 pg [facility] [place] MCHC 31.6(L) 32.0 - 36.0 g/dL [facility] [place] Rdw 16.5(H) 11.0 - 15.0 % [facility] [place] Platelets 324 140 - 400 Thousand/u L [facility] [place] MPV 9.4 7.5 - 12.5 fL [facility] [place] Neutrophils, abs 5,538 1,500 - 7,800 cells/uL [facility] [place] Lymphocytes, abs 1,334 850 - 3,900 cells/uL [facility] [place] Monocyte abs 499 200 - 950 cells/uL [facility] [place] Eosinophils, abs 398 15 - 500 cells/uL [facility] [place] Basophils, abs 31 0 - 200 cells/uL [facility] [place] Neutrophils 71 % [facility] [place] Lymphocyte pct 17.1 % [facility] [place] Monocytes 6.4 % [facility] [place] Eosinophils 5.1 % [facility] [place] Basophils 0.4 % [facility] [place] Blood specimen (specimen) 07/14/2019 11:15 AM CDT 07/14/2019 11:16 AM CDT Narrative [facility] - 07/15/2019 12:12 PM CDT FASTING:NO FASTING: NO Resulting Agency Comment Performing Organization Information: ?Site ID: [email or web address] ?Name: [email or web address] ?Address: [address] [place] [address] [place] [address] ?Director: Darryl Keys D.O., MPH Cathleen Mccormick MD LAB BLOOD ORDERA BLES Final Result [facility] [place] * (ABNORMAL) Comprehensive metabolic panel (07/14/2019 11:15 AM CDT) Glucose 170(H) 65 - 139 mg/dL [facility] [place] Comment: ? Non-fasting reference interval BUN 12 7 - 25 mg/dL [facility] [place] Creatinine 0.54(L) 0.60 - 0.93 mg/dL [facility] [place] Comment: For patients >49 years of age, the reference limit for Creatinine is approximately 13% higher for people identified as -[place]. eGFR NON-AFR. ETHIOPIAN 90 > OR = 60 mL/min/1. 73m2 [facility] [place] EGFR 105 > OR = 60 mL/min/1. 73m2 [facility] [place] BUN/creat ratio 22 6 - 22 (calc) [facility] [place] Sodium 138 135 - 146 mmol/L [facility] [place] Potassium, pl 3.2(L) 3.5 - 5.3 mmol/L [facility] [place] Chloride 104 98 - 110 mmol/L [facility] [place] CO2 27 20 - 32 mmol/L [facility] [place] Calcium 9.2 8.6 - 10.4 mg/dL [facility] [place] Protein, sr 6.9 6.1 - 8.1 g/dL [facility] [place] Albumin 3.7 3.6 - 5.1 g/dL [facility] [place] GLOBULIN 3.2 1.9 - 3.7 g/dL (calc) [facility] [place] Alb/glob ratio 1.2 1.0 - 2.5 (calc) [facility] [place] Bilirubin, total 0.9 0.2 - 1.2 mg/dL [facility] [place] Alk phos 108 37 - 153 U/L [facility] [place] AST 16 10 - 35 U/L [facility] [place] ALT (SGPT) 17 6 - 29 U/L [facility] [place] Blood specimen (specimen) 07/14/2019 11:15 AM CDT 07/14/2019 11:16 AM CDT Narrative [facility] - 07/15/2019 12:12 PM CDT FASTING:NO FASTING: NO Resulting Agency Comment Performing Organization Information: ?Site ID: [place] ?Name: [email or web address] ?Address: [address] [place] [address] ?Director: Darryl Keys D.O., MPH Cathleen Mccormick MD LAB BLOOD ORDERA BLES Final Result [facility] [place] documented in this encounter Visit Diagnoses Diagnosis Dyspnea, unspecified type- Primary AF (paroxysmal atrial fibrillation) (CMS/HCC) (HCC) Atrial fibrillation documented in this encounter Discontinued Medications Medication Sig Discontinue Reason Start Date End Da te amiodarone (PACERONE) 200 mg tablet Take 1 tablet (200 mg total) by mouth daily 06/28/2019 07/13/2019 amiodarone (PACERONE) 400 mg tabletIndications:Preven tion of Recurrent Atrial Fibrillation Take 1 tablet (400 mg total) by mouth 2 (two) times a day for 14 days After 2 weeks continue 200 QD 06/13/2019 07/13/2019 carvediloL (COREG) 12.5 mg tablet Take 1 tablet (12.5 mg total) by mouth 2 (two) times a day with meals Reorder 06/30/2019 07/13/2019 documented as of this encounter Care Teams Corner Cutter Relationship Specialty Start Date End Date Wilber Cleaning Jr., MD [facility] [place] [address] PCP - General 07/03/16 07/15/20 documented as of this encounter
--- OUTSIDE RECORDS SUMMARY | 2024-03-13 01:14 | XMS_ITS | Encounter Summary ---
Author Organization [facility] Address [address] [place] [address] Phone Care Team Providers Care Surgery Scheduling Coordinator Name Role Phone Hermila Calhoun MD, Wilber A. Primary Care Provider Encounter Details Date Type Department Care Team (Late st Contact Info) Description 08/05/2019 Telephone [facility] Cardiology [address] [facility] Advanced Medicine 8th [place] [address] [place] [address] Cathleen Walker MD [address] [facility] [address] [place], [place] [id number] Social History Tobacco Use Types Packs/Day Years Used Date Smoking Tobacco: Never Smokeless Tobacco: Never Alcohol Use Standard Drinks/Week Comments Yes 0 (1 standard drink = 0.6 oz pur e alcohol) 1/mo Comments No Sex and Gender Information Value Date Recorded Sex Assigned at Not on file 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 I told her we would follow up with her and get records. I also told her to get blood work [address] to check Kidney function, given med changes and the contrast load she will get with CT ----- Message ----- From: Paulina Bright RN Sent: 07/29/2019 2:16 PM CDT To: Cathleen Garcia MD I see you mention a CT for pt in wrap up today? I do not see an order What type and do you know where she is going to have it? Will try to follow up documented in this encounter Plan of Treatment Not on file documented as of this encounter Visit Diagnoses Not on filedocumented in this encounter Care Teams Surgery Scheduling Coordinator Relationship Specialty Start Date End Date Wilber Cleaning Jr., MD [address] [place] [address] PCP - General 07/03/16 07/15/20 documented as of this encounter
--- OUTSIDE RECORDS SUMMARY | 2024-03-13 01:14 | XMS_ITS | Encounter Summary ---
Author Organization [facility] Address [address] [place] [address] Phone Care Team Providers Care Farm Management Supervisor Name Role Phone Hermila Calhoun MD, Wilber Martinez Primary Care Provider Encounter Details Date Type Department Care Team (Late st Contact Info) Description 09/19/2019 Telephone [facility] Cardiology [address] [facility] Advanced Medicine 8th [place] [address] [place] [address] Cathleen Walker MD [address] [facility] [address] [place] [address] Social History Tobacco Use Types Packs/Day Years Used Date Smoking Tobacco: Never Smokeless Tobacco: Never Alcohol Use Standard Drinks/Week Comments Yes 0 (1 standard drink = 0.6 oz pur e alcohol) 1/mo Comments No Sex and Gender Information Value Date Recorded Sex Assigned at Not on file 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 Gender Identity Not on file Sexual Orientation Not on file documented as of this encounter Ordered Prescriptions Prescription Sig Dispense Quantity Refills Last Filled Start Date End Date furosemide (LASIX) 20 mg tablet Take 2 tablets (40 mg total) by mouth daily 60 tablet 11 09/19/2019 1 spironolactone (ALDACTONE) 25 mg tablet Take 1 tablet (25 mg total) by mouth daily 30 tablet 11 09/19/2019 1 documented in this encounter Miscellaneous Notes * Telephone Encounter - Yasmin Soto - 09/19/2019 2:29 PM CDT SCHEDULED * Telephone Encounter - Paulina Bright RN - 09/19/2019 2:25 PM CDT Spoke w/ pt She will adjust meds as recommended Scheduled pt for 10/06 w/ Dr. Walker at [facility] at [address], please add to schedule Pt aware Thanks!! * Telephone Encounter - Cathleen Walker MD - 09/19/2019 1:58 PM CDT Let's decrease her furosemide to 40 mg daily and decrease spironolactone to 25 mg daily Continue to check blood pressure, if remains low, will cut back on losartan to 50 mg daily Schedule for office appointment within 4 weeks * Telephone Encounter - Paulina Bright RN - 09/19/2019 12:37 PM CDT Spoke w/ pt States she had been feeling well over the past few weeks, but then having episodes as noted below w/ low BP She confirmed taking the robert 50, losartan 100, coreg 25, lasix 60 as noted in the chart She needs to follow up w/ an appt Recommendations? * Telephone Encounter - Alise Anderson - 09/19/2019 12:06 PM CDT ABE STATES HER BP HAS DECREASED FOR THE PAST WEEK. C/O DIZZINESS AND LIGHTHEADEDNESS. MOST RECENT BP IS90/57 TAKEN TODAY. documented in this encounter Plan of Treatment Not on file documented as of this encounter Visit Diagnoses Not on filedocumented in this encounter Discontinued Medications Medication Sig Discontinue Reason Start Date End Da te spironolactone (ALDACTONE) 50 mg tablet Take 1 tablet (50 mg total) by mouth daily Reorder 08/23/2019 09/19/2019 furosemide (LASIX) 20 mg tablet Take 3 tablets (60 mg total) by mouth daily Reorder 07/29/2019 09/19/2019 documented as of this encounter Care Teams Farm Management Supervisor Relationship Specialty Start Date End Date Wilber Cleaning Jr., MD [facility] [place] [address] PCP - General 07/03/16 07/15/20 documented as of this encounter
--- OUTSIDE RECORDS SUMMARY | 2024-03-13 01:14 | XMS_ITS | Encounter Summary ---
Author Organization [facility] Address [address] [place] [address] Phone Care Team Providers Care Clipper Operator Name Role Phone Hermila Calhoun MD, Wilber Martinez Primary Care Provider Encounter Details Date Type Department Care Team (Late st Contact Info) Description 06/26/[address] [facility] Cardiology [address] 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 Gender Identity Not on file Sexual Orientation Not on file documented as of this encounter Ordered Prescriptions Prescription Sig Dispense Quantity Refills Last Filled Start Date End Date apixaban (ELIQUIS) 5 mg tabletIndications: deep venous thrombosis Take 1 tablet (5 mg total) by mouth 2 (two) times a day 180 tablet 06/26/2020 09/19/2020 documented in this encounter Miscellaneous Notes * Telephone Encounter - Yasmin Soto - 06/26/2020 9:22 AM CDT Aaron Eliquis 5mg 2/D [address] [facility] documented in this encounter Plan of Treatment Not on file documented as of this encounter Visit Diagnoses Not on filedocumented in this encounter Discontinued Medications Medication Sig Discontinue Reason Start Date End Da te apixaban (ELIQUIS) 5 mg tabletIndications:deep venous thrombosis Take 1 tablet (5 mg total) by mouth 2 (two) times a day Reorder 06/17/2019 06/26/2020 documented as of this encounter Care Teams Clipper Operator Relationship Specialty Start Date End Date Wilber Cleaning Jr., MD [address] [place] [address] PCP - General 07/03/16 07/15/20 documented as of this encounter
--- OUTSIDE RECORDS SUMMARY | 2024-03-13 01:14 | XMS_ITS | Encounter Summary ---
Author Organization [facility] Address [address] [place] [address] Phone Care Team Providers Care Electronic Organ Mechanic Name Role Phone Hermila Calhoun MD, Wilber Martinez Primary Care Provider Reason for Referral * (Routine) - Closed Specialty Diagnoses / Procedures Referred By Contac t Referred To Contact Diagnoses Atrial fibrillation (CMS/HCC) (HCC) Procedures Extended/Senior Living Holter Patch Cassandra Fish MD Phone: tel: fax: [address] [address] Referral ID Status Reason Start Date Expiration Date Visits Re quested Visits Authorized [id number] Closed 10/07/2019 11/05/2020 1 1 Reason for Visit * Cardiology (Routine) - Closed Specialty Diagnoses / Procedures Referred By Contac t Referred To Contact Cardiology Diagnoses Atrial fibrillation, unspecified type (HCC) Wilber Cleaning Jr., MD [address] [place] [address] Phone: tel: fax: Cassandra Fish MD [address] [facility] [place] [address] [facility] [place] [address] Phone: tel: fax: Referral ID Status Reason Start Date Expiration Date V isits Requested Visits Authorized [id number] Closed Specialty Services Required 07/20/2019 11/15/2019 3 3 Encounter Details Date Type Department Care Team (Late st Contact Info) Description 10/07/2019 10:10 AM CDT Office Visit [facility] Cardiology [address] 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 Gender Identity Not on file Sexual Orientation Not on file documented as of this encounter Last Filed Vital Signs Vital Sign Reading Time Taken Comments Blood Pressure 113/69 10/07/2019 11:16 AM CDT Pulse 99 10/07/2019 11:16 AM CDT Temperature 36.9 ??C (98.5 ??F) 10/07/2019 11:16 AM C DT Respiratory Rate - - Oxygen Saturation 98% 10/07/2019 11:16 AM CDT Inhaled Oxygen Concentration - - Weight 89.5 kg (197 lb 6.4 oz) 10/07/2019 11:16 AM CDT Height 157.5 cm (5' 2 ) 10/07/2019 11:16 AM CDT Body Mass Index 36.1 10/07/2019 11:16 AM CDT documented in this encounter Patient Instructions * Patient Instructions* Cassandra Fish MD - 10/07/2019 10:10 AM CDT Decrease losartan to 50 mg daily Talk to primary care doctor about diabetes medications Heart monitor will be mailed to you Return to clinic in 6 months documented in this encounter Ordered Prescriptions Prescription Sig Dispense Quantity Refills Last Filled Start Date End Date losartan (COZAAR) 50 mg tablet Take 1 tablet (50 mg total) by mouth daily 30 tablet 11 10/07/2019 08/06/2020 documented in this encounter Progress Notes * Cassandra Fish MD - 10/07/2019 10:10 AM CDT Images from the original note were not included. Provider: Cassandra Fish MD Patient Name: Prema Pearce : 1940 Date of Service: 10/07/2019 Referring: Hermila PROBLEM LIST: 1. Atrial fibrillation [...] MD, Today I had the pleasure of [facility] up of her atrial fibrillation, moderate aortic stenosis and cardiomyopathy, possibly tachy induced. She had an echocardiogram last month notable for recovery of her ejection fraction. Her diuretic and antihypertensive regimen was adjusted earlier this month due to hypotension and dizziness. She also had a follow up CT chest notable for reduced thrombus burden. After reducing her furosemide and aldactone, she has been feeling well. Home BP readings <140/90 mmHg. Highest SBP readings in the mid 140's and tends to occur in the morning before medications. In the afternoon, her blood pressure is ~ 110/70's, with some SBP readings < 100 mmHg. Complaints of fatigue, which has improved. No orthopnea, pnd, edema, exertional chest discomfort orpalpitations. PAST MEDICAL HISTORY Past Medical History: Diagnosis Date ??? Atrial fibrillation (CMS/HCC) ??? Dyslipidemia ??? Hypertension ??? Hypothyroidism ??? Mitral regurgitation ??? Obesity ??? PONV (postoperative nausea and vomiting) ??? Sleep apnea MEDICATIONS Current Outpatient Medications: ??? acetaminophen, 1,000 mg, oral, PRN ??? apixaban, 5 mg, oral, BID ??? aspirin, 81 mg, oral, Daily ??? carvediloL, 25 mg, oral, BID with meals (bkfst, dinner) ??? DULoxetine DR, 60 mg, oral, Daily ??? ergocalciferol, 50,000 Units, oral, Weekly ??? furosemide, 40 mg, oral, Daily ??? levothyroxine, 25 mcg, oral, Daily ??? metFORMIN XR, 1,000 mg, oral, Daily with breakfast ??? multivit,iron,minerals/lutein (CENTRUM SILVER ULTRA WOMEN'S ORAL), 1 tablet, oral, Daily ??? potassium chloride ER, 20 mEq, oral, BID ??? rosuvastatin, 20 mg, oral, Daily ??? spironolactone, 25 mg, oral, Daily ??? zolpidem, 5 mg, oral, Nightly ??? cholecalciferol, vitamin D3, (VITAMIN D3 ORAL), 400 Units, oral, Daily ??? ipratropium-albuteroL, 3 mL, nebulization, Q6H PRN ??? losartan, 50 mg, oral, Daily ??? pantoprazole DR, 40 mg, oral, Daily (Patient not taking: Reported on 10/07/2019) ALLERGY Amlodipine; Prasanth inhibitors; Citalopram; Lisinopril; and Ozempic [semaglutide] FAMILY HISTORY Family History Problem Relation Age of Onset ??? Sudden Cardiac Mother Family history of sudden cardiac - (Added by TW Conv) ??? Heart failure Mother Family history of heart failure - (Added by Conv) ??? Heart attack Father Family history of heart attack - (Added by Conv) ??? Diabetes Father Family history of diabetes mellitus - (Added by Conv) ??? Hypertension Father Family hx of hypertension - (Added by Conv) ??? Diabetes Son Family history of diabetes mellitus - (Added by Conv) ??? Anesthesia problems Neg Hx SOCIAL [...] stated in the HPI. PHYSICAL EXAM: BP 113/69 (BP Location: Right arm, Patient Position: Sitting) Pulse 99 Temp 36.9 ??C (98.5 ??F) Ht 157.5 cm (5' 2 ) Wt 89.5 kg (197 lb 6.4 oz) SpO2 98% BMI 36.10 kg/m?? Vital signs, weight, and intake/output reviewed. [...] aorta. Mod LAE and mild-to-mod MR. Mild TR/FL with est PA pressure 41/9 mm Hg and normal IVC. Echocardiogram 05/2019: Normal LV chamber size, moderate systolic dysfunction, EF=38%. Marked LAE. Moderate MAC. Mildly dilated RV, moderate RV hypokinesis. Mild KAROL. Dilated inferior vena cava. Mild MR and TR. Moderate . 12/18 mmHg, HOLLI 1.3, DI 16/38 Echocardiogram 08/2019 [...] to 50 mg daily. 2. Atrial fibrillation. Persistent. AF may be contributing to her symptoms of fatigue and shortnessof breath. She does not want to pursue antiarrhythmic therapy at this time. Will obtain a monitor to assess AF burden as well as rates while in AF. Continue Coreg 25 mg BID and apixaban 5 mg BID. 3. Aortic stenosis, moderate: Stable, continue to monitor with serial echocardiograms. 4. Hypertension: Continue carvedilol 25 mg BID, decrease losartan to 50 mg daily. 5. Left adrenal nodule. Noted on CT in May, repeat imaging recommended. Follow up with PCP. Thank you very much for letting me participate in the care of this patient. I will plan to see her back in follow up in 6 months. Please feel free to call with any questions or concerns. Sincerely, Cassandra Fish MD documented in this encounter Plan of Treatment Not on file documented as of this encounter Results * Extended/Senior Living Holter Patch (10/07/2019 12:00 PM CDT) Anatomical Region Laterality Modality Electrocardiogra phy 10/07/2019 12:0 0 PM CDT Narrative 10/27/2019 11:19 AM CDT Patient name: Prema Pearce Date of test: 10/07/2019 Type of Test: [facility] #: 0 ?Location: [facility] Heart and Vascular : 1940 ??Age: 79 ??Sex: F Ref Physician(s): CASSANDRA FISH MD Interpreted by: Frank Horn MD Hook-Up Tech: [employer] Reason for Test: Hook-up Tech: [employer] Monitor Serial#: [id number] Case#: [id number] Diary Instruction: Yes Hook-up Tech Comment: Date Time Hooked-up: 10/07/2019 00:00:00 Monitor Returned: 10/27/2019 Recording Started: 10/14/2019 09:00:40 Recording Ended: 10/21/2019 09:00:40 Test Duration (hrs:min): 168:00 Period Analyzed (hrs:min): 129:29 Quality: STATISTICS: Events: 0 Total QRS: 052610 Vent. Beats: 172 Supravent. Beats: 0 Avg [...] 0 sec at Afib/Aflutter: Afib: 1 episodes 34597 min Maximum: 138 bpm Minimum: 59 bpm SCANNING SUMMARY: : There were 366558 QRS complexes detected. ??Of these, there were [...] was 1 Afib Episode with total duration 07303.5(100%) minutes with Max: 138 bpm , Min: 59 bpm. and Av bpm. The longest Afib was 01561.5 minutes. The AF [place] was 100% with 0%<59 bpm and 13%>100 bpm. ?? Preliminary multimedia technician interpretation: Sustained atrial fibrillation with occurrences [...] Date of test: 10/07/2019 Type of Test: [facility] #: 0 Location: [facility] Heart and Vascular : 1940 Age: 79 Sex: F Ref Physician(s): CASSANDRA FISH MD Interpreted by: Frank Horn MD Hook-Up Tech: Mary Jane Cortes Reason for Test: Hook-up Tech: Mary Jane Cortes Monitor Serial#: [id number] Case#: [id number] Diary Instruction: Yes Hook-up Tech Comment: Date Time Hooked-up: 10/07/2019 00:00:00 Monitor Returned: 10/27/2019 Recording Started: 10/14/2019 09:00:40 Recording Ended: 10/21/2019 09:00:40 Test Duration (hrs:min): 168:00 Period Analyzed (hrs:min): 129:29 Quality: STATISTICS: Events: 0 Total QRS: 672859 Vent. Beats: 172 Supravent. Beats: 0 Avg [...] 0 sec at Afib/Aflutter: Afib: 1 episodes 27355 min Maximum: 138 bpm Minimum: 59 bpm SCANNING SUMMARY: : There were 850420 QRS complexes detected. Of these, there were [...] was 1 Afib Episode with total duration 92300.5(100%) minutes with Max: 138 bpm , Min: 59 bpm. and Av bpm. The longest Afib was 01648.5 minutes. The AF [place] was 100% with 0%<59 bpm and 13%>100 bpm. Preliminary multimedia technician interpretation: Sustained atrial fibrillation with occurrences [...] encounter Visit Diagnoses Diagnosis Atrial fibrillation (CMS/HCC) (HCC)- Primary Atrial fibrillation Atrial fibrillation (CMS/HCC) (HCC) Atrial fibrillation documented in this encounter Discontinued Medications Medication Sig Discontinue Reason Start Date End Da te pancrelipase (CREON) 36,000 units of lipase capsuleIndications:exocri ne pancreatic insufficiency 1 capsule 3 (three) times a day with meals Patient Discharge 10/07/2019 losartan (COZAAR) 100 mg tablet Take 100 mg by mouth daily Dose adjustment 10/07/2019 documented as of this encounter Care Teams Electronic Organ Mechanic Relationship Specialty Start Date End Date Wilber Cleaning Jr., MD [address] [place] [address] PCP - General 07/03/16 07/15/20 documented as of this encounter
--- OUTSIDE RECORDS SUMMARY | 2024-03-13 01:14 | XMS_ITS | Encounter Summary ---
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) Procedures Transthoracic Echo Complete W Doppler/CF Cassandra Fish MD Phone: tel: fax: [facility] (All Locations) Referral ID Status Reason Start Date Expiration Date Visits Re quested Visits Authorized [id number] Closed 07/29/2019 2021 1 1 Encounter Details Date Type Department Care Team (Late st Contact Info) Description 08/18/2019 11:30 AM CDT Ancillary Procedure [facility] [address] [facility] [address] [place] [address] Cassandra Fish MD [address] [facility] [address] [place] [address] Atrial fibrillation, unspecified type (CMS/HCC); 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 (CMS/HCC); Acute combined systolic and diastolic heart failure (CMS/HCC) Discharge Disposition: Discharge to home or self care Social History Tobacco Use Types Packs/Day Years Used Date Smoking Tobacco: Never Smokeless Tobacco: Never Alcohol Use Standard Drinks/Week Comments Yes 0 (1 standard drink = 0.6 oz pur e alcohol) 1/mo Comments No Sex and Gender Information Value Date Recorded Sex Assigned at Not on file 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 Gender Identity Not on file Sexual Orientation Not on file documented as of this encounter Discharge Disposition Disposition Code Departure Means Destination Discharge to home or self care documented in this encounter Plan of Treatment Not on file documented as of this encounter Procedures Procedure Name Priority Date/Time Associated Diagnosis Comments TRANSTHORACIC ECHO (TTE) COMPLETE W DOPPLER/CF Routine 08/18/2019 11:30 AM CDT Atrial fibrillation, unspecified type (CMS/HCC) 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 Contrast Administered by: Tami Bush RN Supervised/Interpreted by: Jose Antonio ??MD Elisabet Diagnosis: Location: [facility] Reason for test: heart failure MV [...] 2=Hypo 3=Akinetic 4=Dyskin./Aneurysm 0=Not visualized) Parasternal Long [place]:MAS=1 BAS=1 MIL=1 NIGHAT=1 Parasternal Short [place]:MAS=1 MIS=1 WI=1 MIL=1 MAL=1 MA=1 Apical 4 Chambers:=1 MIS=1 BIS=1 BAL=1 MAL=1 AL=1 AC=1 Apical 2 Chambers:AI=1 WI=1 BI=1 BA=1 MA=1 AA=1 AC=1 LV Global [...] Elisabet By signing this report, the attending sheet rock hanger certifies that he or she has personally supervised and interpreted the echocardiogram and has reviewed and or edited and agrees with the written comments contained within the report. Procedure Note Jose Antonio Bhandari MD - 08/18/2019 Patient name: Prema Pearce Date of test: 08/18/2019 Type of test: [facility] #: [id number] Date of : 1940 (F) Packing Room Supervisor: OSEI Rondon Referring Physician: CASSANDRA FISH MD Contrast Agent: 1.5 ml Optison Administered, (1.5 ml wasted). Contrast Administered by: Tami Bush RN Supervised/Interpreted by: Jose Antonio Bhandari MD Diagnosis: Location: [facility] Reason for test: heart failure MV [...] 2=Hypo 3=Akinetic 4=Dyskin./Aneurysm 0=Not visualized) Parasternal Long [place]:MAS=1 BAS=1 MIL=1 NIGHAT=1 Parasternal Short [place]:MAS=1 MIS=1 WI=1 MIL=1 MAL=1 MA=1 Apical 4 Chambers:=1 MIS=1 BIS=1 BAL=1 MAL=1 AL=1 AC=1 Apical 2 Chambers:AI=1 WI=1 BI=1 BA=1 MA=1 AA=1 AC=1 LV Global [...] MD By signing this report, the attending sheet rock hanger certifies that he or she has personally supervised and interpreted the echocardiogram and has reviewed and or edited and agrees with the written comments contained within the report. 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
--- OUTSIDE RECORDS SUMMARY | 2024-03-13 01:14 | XMS_ITS | Encounter Summary ---
Author Organization [facility] Address [address] [place] [address] Phone Care Team Providers Care Batting Machine Operator Name Role Phone Hemrila Calhoun MD, Wilber Martinez Primary Care Provider Encounter Details Date Type Department Care Team (Late st Contact Info) Description 12/05/2019 Telephone [facility] Cardiology [facility] [address] [place] [address] Concepcion Iniguez, [facility] Social History Tobacco Use Types Packs/Day Years Used Date Smoking Tobacco: Never Smokeless Tobacco: Never Alcohol Use Standard Drinks/Week Comments Yes 0 (1 standard drink = 0.6 oz pur e alcohol) 1/mo Comments No Sex and Gender Information Value Date Recorded Sex Assigned at Not on file 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 She did state she is unable to keep phone apt with 12/05 I cx and rescheduled pt for a phone apt 12/12 @ 4 if there Is any issue with this please let me know. documented in this encounter Plan of Treatment Not on file documented as of this encounter Visit Diagnoses Not on filedocumented in this encounter Care Teams Batting Machine Operator Relationship Specialty Start Date End Date Wilber Cleaning Jr., MD [address] [place] [address] PCP - General 07/03/16 07/15/20 documented as of this encounter
--- OUTSIDE RECORDS SUMMARY | 2024-03-13 01:15 | XMS_ITS | Encounter Summary ---
Author Organization [facility] Address [address] [place] [address] Care Team Providers Care Laundry Aid Name Role Phone Hermila Calhoun MD, Wilber Martinez Primary Care Provider Encounter Details Date Type Department Care Team (Latest Contact Info) Description 05/30/2019 12:54 PM CDT - 05/30/2019 11:59 PM CDT Hospital Encounter [facility] Cardiac Diagnostic Lab [address] [place] [address] Keanu Estrada MD [address] [place] [address] Discharge Disposition: Discharge to home or self care Social History Tobacco Use Types Packs/Day Years Used Date Smoking Tobacco: Never Smokeless Tobacco: Never Alcohol Use Standard Drinks/Week Comments Yes 0 (1 standard drink = 0.6 oz pur e alcohol) 1/mo Comments No Sex and Gender Information Value Date Recorded Sex Assigned at Not on file Legal Sex Female 4: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 No / Unsure 05/29/2019 10:23 PM CDT documented as of this encounter Medications at Time of Discharge oxyCODONE-acetam inophen (PERCOCET) 5-325 mg per tabletIndication s:Pain Take 1-2 tablets by mouth every 4 (four) hours as needed for pain 56 tablet 05/26/2019 07/25/2019 acetaminophen 500 mg capsule Take 2 capsules (1,000 mg total) by mouth every 6 (six) hours as needed for pain 30 tablet 06/05/2019 06/13/2019 ALPRAZolam (XANAX) 0.25 mg tablet Take 0.25 mg by mouth 3 (three) times a day as needed 06/13/2019 amLODIPine (NORVASC) 5 mg tablet TAKE ONE TABLET BY MOUTH ONCE DAILY 90 tablet 1 11/16/2018 06/05/2019 carvedilol (COREG) 25 mg tablet Take 1 tablet (25 mg total) by mouth 2 (two) times a day with meals 60 tablet 11 12/27/2018 06/13/2019 cholecalciferol, vitamin D3, (VITAMIN D3 ORAL) Take 400 Units by mouth daily 01/13/[address] (CYMBALTA) 30 mg capsule Take 60 mg by mouth daily 09/30/2017 06/09/2019 furosemide (LASIX) 20 mg tablet Take 1 tablet (20 mg total) by mouth daily 30 tablet 11 12/27/2018 06/05/2019 furosemide (LASIX) 20 mg tablet Take 1 tablet (20 mg total) by mouth 2 (two) times a day 60 tablet 06/05/2019 07/29/2019 hydroCHLOROthiaz nuno (HYDRODIURIL) 25 mg tablet Take 1 tablet (25 mg total) by mouth daily 90 tablet 3 05/23/2019 06/05/2019 levothyroxine (SYNTHROID) 50 mcg tablet Take 25 mcg by mouth 2 (two) times a day 1 03/24/2018 10/29/2020 losartan (COZAAR) 100 mg tablet TAKE ONE TABLET BY MOUTH ONCE DAILY 90 tablet 3 01/03/2019 06/05/2019 losartan (COZAAR) 50 mg tablet Take 1 tablet (50 mg total) by mouth daily 30 tablet 06/05/2019 06/09/2019 lovastatin (MEVACOR) 10 mg tablet TAKE ONE TABLET BY MOUTH ONCE DAILY AT BEDTIME 90 tablet 3 12/28/2018 06/13/2019 metFORMIN (GLUCOPHAGE) 1,000 mg tablet Take one tablet once daily at bedtime 06/09/2019 multivit,iron,mi nerals/lutein (CENTRUM SILVER ULTRA WOMEN'S ORAL) Take 1 tablet by mouth daily 09/11/2020 Ozempic 0.25 mg or 0.5 mg(2 mg/1.5 mL) pen injector Inject 0.25 mg under the skin once a week 05/20/2019 07/21/[address] (PROTONIX) 40 mg EC tabletIndication s:Treatment of Non-Bleeding Gastric Disorder Take 1 tablet (40 mg total) by mouth daily 30 tablet 06/06/2019 01/13/2020 potassium chloride ER (KLOR-CON) 20 mEq CR tablet Take 1 tablet (20 mEq total) by mouth daily 30 tablet 11 12/27/2018 06/13/2019 senna-docusate (PERICOLACE) 8.6-50 mgIndications:co nstipation Take 2 tablets by mouth 2 (two) times a day 60 tablet 1 05/27/2019 06/09/2019 warfarin (COUMADIN) 2 mg tablet TAKE 1-2 TABLETS BY MOUTH EVERY DAY DIRECTED 180 tablet 1 05/28/2018 06/05/2019 warfarin (COUMADIN) 2 mg tabletIndication s:atrial fibrillation,[place] ous Thrombosis Take 1 tablet (2 mg total) by mouth daily 30 tablet 06/05/2019 06/10/2019 zolpidem (AMBIEN) 5 mg tabletIndication s:Sleep-Onset Insomnia Take 5 mg by mouth nightly. at bedtime. 1 09/16/2017 06/13/2019 documented as of this encounter Discharge Disposition Disposition Code Departure Means Destination Discharge to home or self care documented in this encounter Plan of Treatment Not on file documented as of this encounter Procedures Procedure Name Priority Date/Time Associated Diagnosis Comments TRANSTHORACIC ECHO (TTE) COMPLETE W DOPPLER/CF W CONTRAST Routine 05/30/2019 4:39 PM CDT documented in this encounter Visit Diagnoses Not on filedocumented in this encounter Administered Medications Inactive Administered Medications - up to 3 most recent administrations Medication Order MAR Action Action Date Dose Rate Site perflutren protein-a (OPTISON) 3 mL in sodium chloride 0.9% 8 mL syringe 1-8 mL, intravenous, Once in imaging, contrast, Starting on 05/30/19 at 1431, For 1 dose, Intra-Procedure (CV) Given by Other 05/30/2019 4:39 PM CDT 3 mL documented in this encounter Care Teams Laundry Aid Relationship Specialty Start Date End Date Wilber Cleaning Jr., MD [address] [place] [address] PCP - General 07/03/16 07/15/20 documented as of this encounter
--- OUTSIDE RECORDS SUMMARY | 2024-03-13 01:15 | XMS_ITS | Encounter Summary ---
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 Gender Identity Not on file Sexual Orientation [...] Date/Time Associated Diagnosis Comments SCAN - RADIOLOGY/IMAGING 05/29/2019 CARDIOLOGY DOCUMENT SCAN 05/29/2019 documented in this encounter Results * SCAN - RADIOLOGY/IMAGING (05/29/2019) Anatomical Region Laterality Modality Other us Provider Scanning Final Result * SCAN - CARDIOLOGY (05/29/2019) Anatomical Region Laterality Modality Other us Provider Scanning CV CARDIAC SERVICES PROCEDURES Final Result documented in this encounter Visit Diagnoses Not on filedocumented in this encounter Additional Health Concerns Infection Onset Date Last Indicated Resolved Time COVID19 Comment:IP Review - pt afebrile, without URI signs/symptoms. Aislinn Goldsmith, RADIOLOGIC ELECTRONIC SPECIALIST 06/09/2019 06/09/2019 06/09/2019 4:20 PM C DT documented as of this encounter Care Teams Egg Buyer Relationship Specialty Start Date End Date Wilber Cleaning Jr., MD [address] [place] [address] PCP - General 07/03/16 07/15/20 Ryann Galdamez PA [address] [place] [address] PCP - General Supervisor Wash House 07/16/20 04/01/21 documented as of this encounter
--- OUTSIDE RECORDS SUMMARY | 2024-03-13 01:15 | XMS_ITS | Encounter Summary ---
Author Organization [facility] Address [address] [place] [address] Phone Care Team Providers Care Type Proof Reproducer Name Role Phone Hermila Calhoun MD, Wilber Duckworth. Primary Care Provider Encounter Details Date Type Department Care Team (Latest Contact Info) Description 06/07/2019 Anticoagulation Telephone Call [facility] Cardiology [address] [place] [address] Cathleen Walker MD [address] [facility] [address] [address] [place] [address] Atrial fibrillation, unspecified type (CMS/HCC) Social History Tobacco Use Types Packs/Day Years Used Date Smoking Tobacco: Never Smokeless Tobacco: Never Alcohol Use Standard Drinks/Week Comments Yes 0 (1 standard drink = 0.6 oz pur e alcohol) 1/mo Comments No Sex and Gender Information Value Date Recorded Sex Assigned at Not on file 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 No / Unsure 05/29/2019 10:23 PM CDT documented as of this encounter Miscellaneous Notes * Telephone Encounter - Paulina Bright, ARMANI - 06/07/2019 12:04 PM CDT Yes this pt is in rehab I spoke w/ them this morning and confirmed they will be managing Thanks! Please time out about a week and we can see if she is still there documented in this encounter Plan of Treatment Not on file documented as of this encounter Visit Diagnoses Diagnosis Atrial fibrillation, unspecified type (HCC) documented in this encounter Care Teams Type Proof Reproducer Relationship Specialty Start Date End Date Wilber Cleaning Jr., MD [address] [place] [address] PCP - General 07/03/16 07/15/20 documented as of this encounter
--- OUTSIDE RECORDS SUMMARY | 2024-03-13 01:15 | XMS_ITS | Encounter Summary ---
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 Aislinn Goldsmith, FIRST AID TEACHER 06/09/2019 06/09/2019 06/09/2019 4:20 PM C DT documented as of this encounter Care Teams Corporate Strategist Relationship Specialty Start Date End Date Wilber Cleaning Jr., MD [address] [email or web address] [address] PCP - General 07/03/16 07/15/20 Ryann Galdamez PA [address] [place] [address] PCP - General Fur Vault Attendant 07/16/20 04/01/21 documented as of this encounter
--- OUTSIDE RECORDS SUMMARY | 2024-03-13 01:15 | XMS_ITS | Encounter Summary ---
Author Organization [facility] Address [address] [place] [address] Phone Care Team Providers Care Computational Chemist Name Role Phone Hermila Calhoun MD, Wilber A. Primary Care Provider Encounter Details Date Type Department Care Team (Late st Contact Info) Description 06/07/2019 Telephone [facility] Cardiology [address] Advanced Medicine [address] [place] [address] [place] [address] Cathleen Walker MD [address] [facility] [facility] [address] [place], [place] [id number] Social History Tobacco Use Types Packs/Day Years Used Date Smoking Tobacco: Never Smokeless Tobacco: Never Alcohol Use Standard Drinks/Week Comments Yes 0 (1 standard drink = 0.6 oz pur e alcohol) 1/mo Comments No Sex and Gender Information Value Date Recorded Sex Assigned at Not on file 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 No / Unsure 05/29/2019 10:23 PM CDT documented as of this encounter Miscellaneous Notes * Telephone Encounter - Paulina Bright RN - 06/08/2019 10:14 AM CDT Sorry sent to wrong provider! This is Dr. Walker pt Thanks! * Telephone Encounter - Paulina Bright RN - 06/07/2019 10:53 AM CDT Spoke w/ the nurse at care center Pt is taking losartan, coreg and lasix as noted in the chart She explained BP was 180/90, pt was having pain and given pain meds, [facility] is doing the adjusting and today they increased the losartan for the day, they will continueto adjust and call us if they need more help or if the pt continues to stay high After pain subsided and extra dose, 130/70 They will also follow coumadin while inpatient She took our info * Telephone Encounter - Meliton Harrison - 06/07/2019 8:16 AM CDT Aaron Pt's calling saying that pt is in a care center in [place], [place], due to having a knee replacement just over a week ago. Says that the staff there is having a hard time regulating pt's BP and was wondering if we could reach out and see what's going on. If any questions, OK to call but he leaves at 9 AM for an appt. Gives number to the care center as [phone] and says to ask for Shahana Broussard. Says pt is in room 639A. documented in this encounter Plan of Treatment Not on file documented as of this encounter Visit Diagnoses Not on filedocumented in this encounter Care Teams Computational Chemist Relationship Specialty Start Date End Date Wilber Cleaning Jr., MD [address] [place] [id number] PCP - General 07/03/16 07/15/20 documented as of this encounter
--- OUTSIDE RECORDS SUMMARY | 2024-03-13 01:15 | XMS_ITS | Encounter Summary ---
Author Organization [facility] Address [address] [place] [address] Care Team Providers Care Sales Order Processor Name Role Phone Hermila Calhoun MD, Wilber Martinez Primary Care Provider Ryann Galdamez Primary Care Provider [phone] Ryann Galdamez Primary Care Provider [phone]- [phone] Chris Mendes MD Unavailable [phone] Keli Orozco RN Unavailable Unavailable Alysa Newton RN Unavailable [phone] Cuba Larsen MD Primary Care Provider [phone] Keli Orozco RN Unavailable Unavailable Keli Orozco RN Unavailable Unavailable Tami Mcknight RN Unavailable Unavailab le Encounter Details Date Type Department Care Team (Late st Contact Info) Description 05/27/2019 Documentation [facility] Social Work [address] [place] [address] Dolores Ovalle LCSW Social History Tobacco Use Types Packs/Day Years Used Date Smoking Tobacco: Never Smokeless Tobacco: Never Alcohol Use Standard Drinks/Week Comments Yes 0 (1 standard drink = 0.6 oz pur e alcohol) 1/mo Comments No Sex and Gender Information Value Date Recorded Sex Assigned at Not on file 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 No / Unsure 05/29/2019 10:23 PM CDT documented as of this encounter Miscellaneous Notes * Plan of Care - Dolores Florez LMSW - 05/27/2019 8:28 AM CDT Pt transferred [place] [id number]. SW provided transfer hand off to floor SW. documented in this encounter Plan of Treatment Not on file documented as of this encounter Visit Diagnoses Not on filedocumented in this encounter Additional Health Concerns Infection Onset Date Last Indicated Resolved Time COVID19 Comment:IP Review - pt afebrile, without URI signs/symptoms. Aislinn Goldsmith, JOINT FILLER 06/09/2019 06/09/2019 06/09/2019 4:20 PM C DT documented as of this encounter Care Teams Sales Order Processor Relationship Specialty Start Date End Date Wilber Cleaning Jr., MD [address] [place] [address] PCP - General 07/03/16 07/15/20 Ryann Galdamez PA [address] [place] [address] PCP - General [place] 07/16/20 04/01/21 Ryann Galdamez PA [address] [place] [address] PCP - General [place] 04/02/21 01/22/22 Cuba Larsen MD [address] [address] PCP - General Family Medicine 01/23/22 Chris Mendes MD [facility] [place] [address] Referring Physician Cardiology 12/23/21 Keli Orozco, leather production machine operatorOffset Printing Pressmen Cardiology 12/23/21 04/15/23 Alysa Newton, RN [address] [address] Offset Printing Pressmen Cardiology 12/23/21 Keli Orozco, carpet journeyman Failure Coordinator 04/02/23 4 Keli Orozco, carpet journeyman Failure Coordinator Transplant 04/15/23 Tami Mcknight carpet journeyman Failure Coordinator Cardiology 09/14/23 documented as of this encounter
--- OUTSIDE RECORDS SUMMARY | 2024-03-13 01:15 | XMS_ITS | Encounter Summary ---
Author Organization [facility] Healthcare Address [address] [place] [address] Care Team Providers Care Advertisement Compositor Name Role Phone Hermila Calhoun MD, Wilber Martinez Primary Care Provider Reason for Visit * Reason Comments Shortness of Breath Dizziness Encounter Details Date Type Department Care Team (Late st Contact Info) Description 06/08/2019 3:47 PM CDT - 06/13/2019 2:23 PM CDT Hospital Encounter [facility] [address] [place] [address] Pascale Santos MD [address] [place] [address] Ned Urbina MD [address] [facility] [address] [place] [address] Atrial fibrillation, unspecified type (CMS/HCC) (Primary Dx); Acute on chronic congestive heart failure, unspecified heart failure type (CMS/HCC) Discharge Disposition: Discharge to SNF Social History Tobacco Use Types Packs/Day Years Used Date Smoking Tobacco: Never Smokeless Tobacco: Never Alcohol Use Standard Drinks/Week Comments Yes 0 (1 standard drink = 0.6 oz pur e alcohol) 1/mo Comments No Sex and Gender Information Value Date Recorded Sex Assigned at Not on file 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 No / Unsure 06/08/2019 4:00 PM CDT documented as of this encounter Last Filed Vital Signs Vital Sign Reading Time Taken Comments Blood Pressure 151/83 06/13/2019 11:29 AM CDT Pulse 74 06/13/2019 11:29 AM CDT Temperature 37 ??C (98.6 ??F) 06/13/2019 11:29 AM CDT Respiratory Rate 20 06/13/2019 11:29 AM CDT Oxygen Saturation 99% 06/13/2019 11:29 AM CDT Inhaled Oxygen Concentration - - Weight 97.1 kg (214 lb 1.6 oz) 06/13/2019 1:00 A M CDT Height 157.5 cm (5' 2 ) 06/08/2019 4:02 PM CDT Body Mass Index 39.16 06/08/2019 4:02 PM CDT documented in this encounter Discharge Diagnoses Diagnosis Hypertensive heart disease with heart failure ([facility]) ([facility]) - HYPERTENSIVE HEART DISEASE WITH HEART FAILURE Unspecified hypertensive heart disease with heart failure Other pulmonary embolism without acute cor pulmonale ([facility]) - OTHER PULMONARY EMBOLISM WITHOUT ACUTE COR PULMONALE Non-ST elevation (NSTEMI) myocardial infarction ([facility]) ([facility]) - NON-ST ELEVATION (NSTEMI) MYOCARDIAL INFARCTION Chronic atrial fibrillation, unspecified ([facility]) - CHRONIC ATRIAL FIBRILLATION, UNSPECIFIED Acute posthemorrhagic anemia - ACUTE POSTHEMORRHAGIC ANEMIA Acute on chronic systolic (congestive) heart failure ([facility]) - ACUTE ON CHRONIC SYSTOLIC (CONGESTIVE) HEART FAILURE Hypothyroidism, unspecified - HYPOTHYROIDISM, UNSPECIFIED Type 2 diabetes mellitus without complications ([facility]) ([facility]) - TYPE 2 DIABETES MELLITUS WITHOUT COMPLICATIONS Hyperlipidemia, unspecified - HYPERLIPIDEMIA, UNSPECIFIED Adult failure to thrive - ADULT FAILURE TO THRIVE 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 ([facility]) - SENIOR CARE (CURRENT) USE OF INSULIN Hormone replacement therapy - HORMONE REPLACEMENT THERAPY senior care (current) use of anticoagulants - SENIOR CARE (CURRENT) USE OF ANTICOAGULANTS Long-term (current) use of anticoagulants 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 UTERUS Acquired absence of other specified parts of digestive tract - ACQUIRED ABSENCE OF OTHER SPECIFIED PARTS OF DIGESTIVE TRACT Nonrheumatic mitral (valve) insufficiency - NONRHEUMATIC MITRAL (VALVE) INSUFFICIENCY documented in this encounter Discharge Summaries * David Horn MD - 06/13/2019 11:43 AM CDT Inpatient Discharge Summary BRIEF OVERVIEW Admitting Provider: Ned Urbina MD Discharge Provider: Ned Urbina MD Primary Care Physician at Discharge: Wilber Cleaning Jr., MD [phone] Admission Date: 06/08/2019 Discharge Date: 06/13/2019 Admission Location: [facility] Problems/Diagnoses: Principal Problem: Pulmonary embolism (CMS/HCC) Resolved Problems: No resolved hospital problems. DETAILS OF HOSPITAL STAY Presenting Problem/History of Present Illness: Prema Pearce is a 79 y.o. female with a history of atrial fibrillation, HFrEF, HTN, recent PEpresenting with SOB. ?? Patient states past few days she has felt increasing SOB. Though she has been SOB for years , overthe past few days it has increased. For example, she cannot it make to the commode as she used to as she feels she does not have enough air . Associated with this SOB has been swelling in her lower extremities, which has been worsening. Yesterday, at 2pm, she was witnessed to pass out for a few seconds by her therapist. No prodromal symptoms. No fall or trauma. It was at that point she felt she should go to ED. Patient denies chest pain/palpations/fevers/chills. Her taste/smell is intact. Norecent travel within the last 2 weeks. No recent sick contacts or Covid contacts or quarantine conta cts. Hospital Course: #Submassive PE - provoked PE in setting of poor mobilization following left hip injury; on warfarinat home; INR=3.0 this admission. Repeat CTPE with bilateral PE in all primary pulmonary arteries and all lung segments (see CTPE from 06/08). Troponin trending down after admission. Stopped warfarin and started heparin gtt then transitioned to eliquis prior to discharge. ?? #Atrial fibrillation /w RVR - manifesting as SOB, not palpitations; blood pressure stable; patient received 3x metoprolol 5mg IV, with rate from 140s -> 110s; possibly related to new or active PE and volume overload. Started amiodarone PO 400 TID load and with plan for 400 BID for two weeks at time of dispo then 200 every day after. Carvedilol reduced in setting of acute CHF exacerbation from 25 BID to 6.25 BID. Rate controlled on this regiment prior to discharge. INR therapeutic 3 on admission. Warfarin held and heparin gtt started then converted to eliquis prior to discharge. ?? #NSTEMI -??EKG with TWI in anterior leads, unlikely to be evolving intracoronary event given troponin trending down but troponin more elevated than would be expected from demand. S/p ASA loading in ED; trop peak at 6.34; noted to trend down to 2.97. continued ASA, statin. Recommending outpatient C. ?? #Acute on chronic HFrEF??- symptoms of volume overload, possibley related to poor filling??of ventricles in setting of a fib/w RVR but LVEF significantly decreased at 38% on 05/30/19 from 51% in 01/01and active PE. Lasix 20mg IV for volume overload. Transitioned to PO regiment of 20 PO QD at dispo.Carvediolol started at 6.25 BID in setting of acute CHF exacerbation. Continued losartan 50mg PO Qday ?? #T2DM - last A1c= 6.5; on metformin at home. LDSSI while inpatient. ?? #Hypothyroidism: TSH elevated 7.49 on admission. Suspected euthyroid sick syndrome in setting of acute illness. Continued levothyroxine 25mcg Qday. Recommend follow up in 6 weeks. #S/p L DFR 05/24 for open distal femur fracture: Ortho consulted inpatient. Wound vac while inpatient and prevena at time of dispo. Active Issues Requiring Follow-up: See discharge instructions Test Results Pending at Discharge: Operative Procedures Performed: Other Procedures: Pertinent Test Results: CTPE 06/09/19 IMPRESSION: 1. Bilateral pulmonary emboli extending all segments and all lobes of the main pulmonary arteries. This is associated with right heart enlargement. This may be seen in the setting of right heart strain. Please correlate with clinical, laboratory values and echocardiography, if clinically indicated to assess for massive or submassive pulmonary emboli. 2. Bilateral pleural effusions. Discharge Details Physical Exam at Discharge: Discharge Condition: good Pulse: 74 Resp: 20 BP: 151/83 Temp: 37 ??C (98.6 ??F) Weight: 97.1 kg (214 lb 1.6 oz) Pertinent Exam Findings at Discharge: General: Elderly appearing, in no apparent distress. Neuro: Awake, alert, oriented to person/place/time. Moving all extremities. HEENT: No thyroid enlargement or JVD. Heart: Regular rate, irregular rhythm. No MRG. Lungs: LCAB, no increased work of breathing. 3LNC SpO2 >95% Abd: Soft, nontender, nondistended. Extremities: 1+ edema bilaterally. Discharge Disposition: Discharge to SNF Code Status at Discharge: FULL Discharge Instructions: Your hospital diagnosis was Afib with RVR. You were started on amiodarone and your carvedilol dose was changed. You will take 400 mg amiodarone BID for 2 weeks and then take amiodarone 200 mg once daily after until told to stop by a video presentation operator. Your coreg dose is 6.25 BID. You were also diagnosed with an NSTEMI. You were treated with a heparin gtt and your atorvastatin was changed to rasuvastatin. You will need a left heart cath outpatient for further evaluation upon further improvement of your active symptoms. For your PE we stopped warfarin and started you on Eliquis. You will complete a loading dose of 10mg BID and then take 5 mg BID after completing the loading dose. Continue to singleton oxygen until the PEresolves and you no longer need it to maintain adequate resting and ambulatory oxygen sats. Your leg was evaluated by orthopedic surgery. You will keep the wound vac in place until the battery runs out in the prevena (appx 1 week). You are still weight baring as tolerated on that extremity and we recommend continuing PT/OT for rehabilitation. You were tested for COVID while in the hospital and this test was negative. Discharge Medications: Current Medications TAKE these medications * amiodarone 400 mg tablet Take 1 tablet (400 mg total) by mouth 2 (two) times a day for 14 days After 2 weeks continue 200 QD For: prevention of recurrent atrial fibrillation Commonly known as: PACERONE * amiodarone 200 mg tablet Take 1 tablet (200 mg total) by mouth daily Commonly known as: PACERONE Start taking on: June 28, 2019 * apixaban 5 mg tablet Take 2 tablets (10 mg total) by mouth 2 (two) times a day for 8 doses For: blood clot in a deep vein of the extremities Commonly known as: ELIQUIS * apixaban 5 mg tablet Take 1 tablet (5 mg total) by mouth 2 (two) times a day For: blood clot in a deep vein of the extremities Commonly known as: ELIQUIS Start taking on: June 17, 2019 aspirin 81 mg chewable tablet Take 1 tablet (81 mg total) by mouth daily Start taking on: June 14, 2019 busPIRone 5 mg tablet Take 5 mg by mouth daily Take 5mg by mouth daily x 1 week, then increase to 5mg twice daily For: repeated episodes of anxiety Commonly known as: BUSPAR carvediloL 6.25 mg tablet Take 1 tablet (6.25 mg total) by mouth 2 (two) times a day with meals Commonly known as: COREG CENTRUM SILVER ULTRA WOMEN'S ORAL Take 1 tablet by mouth daily DULoxetine DR 60 mg capsule Take 60 mg by mouth daily Commonly known as: CYMBALTA furosemide 20 mg tablet Take 1 tablet (20 mg total) by mouth 2 (two) times a day Commonly known as: LASIX insulin aspart U-100 100 unit/mL (3 mL) insulin pen Administer subcutaneously per sliding scale Commonly known as: NovoLOG ipratropium-albuteroL 0.5-2.5 mg/3 mL nebulizer solution Take 3 mL by nebulization every 6 (six) hours as needed for wheezing or shortness of breath For: bronchi muscle spasm resulting from COPD Commonly known as: DUO-NEB levothyroxine 25 mcg tablet Take 25 mcg by mouth daily Commonly known as: SYNTHROID losartan 100 mg tablet Take 100 mg by mouth daily Commonly known as: COZAAR lovastatin 10 mg tablet TAKE ONE TABLET BY MOUTH ONCE DAILY AT BEDTIME Commonly known as: MEVACOR metFORMIN XR 500 mg 24 hr tablet Take 1,000 mg by mouth daily with breakfast Commonly known as: GLUCOPHAGE XR oxyCODONE-acetaminophen 5-325 mg per tablet Take 1-2 tablets by mouth every 4 (four) hours as needed for pain For: pain Commonly known as: PERCOCET Ozempic 0.25 mg or 0.5 mg(2 mg/1.5 mL) pen injector Inject 0.25 mg under the skin once a week Generic drug: semaglutide pantoprazole DR 40 mg EC tablet Take 1 tablet (40 mg total) by mouth daily For: Treatment of Non-Bleeding Gastric Disorder Commonly known as: PROTONIX VITAMIN D3 ORAL Take 400 Units by mouth daily * This list has 4 medication(s) that are the same as other medications prescribed for you. Read the directions carefully, and ask your doctor or other care provider to review them with you. Outpatient Follow-Up: Future Appointments Date Time Provider Department Center 06/23/2019 10:15 AM Kaveh Charles MD [facility] Cosigned by Donaldo Poe MD at 06/13/2019 2:42 PM CDT documented in this encounter Discharge Instructions * Discharge Instructions* David Horn MD - 06/13/2019 11:43 AM CDT Your hospital diagnosis was Afib with RVR. You were started on amiodarone and your carvedilol dose was changed. You will take 400 mg amiodarone BID for 2 weeks and then take amiodarone 200 mg once daily after until told to stop by a video presentation operator. Your coreg dose is 6.25 BID. For your PE we stopped warfarin and started you on Eliquis. You will complete a loading dose of 10mg BID and then take 5 mg BID after completing the loading dose. Your leg was evaluated by orthopedic surgery. You will keep the wound vac in place until the battery runs out in the prevena (appx 1 week). You are still weight baring as tolerated on that extremity and we recommend continuing PT/OT for rehabilitation. documented in this encounter Medications at Time of Discharge oxyCODONE-acetamin ophen (PERCOCET) 5-325 mg per tabletIndications: Pain Take 1-2 tablets by mouth every 4 (four) hours as needed for pain 56 tablet 0 07/25/19 20 amiodarone (PACERONE) 200 mg tablet Take 1 tablet (200 mg total) by mouth daily 30 tablet 11 0 07/13/19 20 amiodarone (PACERONE) 400 mg tabletIndications: Prevention of Recurrent Atrial Fibrillation Take 1 tablet (400 mg total) by mouth 2 (two) times a day for 14 days After 2 weeks continue 200 QD 28 tablet 0 07/13/19 20 apixaban (ELIQUIS) 5 mg tabletIndications: deep venous thrombosis Take 2 tablets (10 mg total) by mouth 2 (two) times a day for 8 doses 16 tablet 0 06/30/19 20 apixaban (ELIQUIS) 5 mg tabletIndications: deep venous [...] twice daily 0 07/29/19 20 carvediloL (COREG) 6.25 mg tablet Take 1 tablet (6.25 mg total) by mouth 2 (two) times a day with meals 60 tablet 0 06/30/19 20 cholecalciferol, vitamin D3, (VITAMIN D3 ORAL) Take 400 Units by mouth daily 01/13/[address] (CYMBALTA) 60 mg capsule Take 60 mg by mouth daily 08/22/19 21 furosemide (LASIX) 20 mg tablet Take 1 tablet (20 mg total) by mouth 2 (two) times a day 60 tablet 0 07/29/19 20 insulin aspart U-100 [...] 1 tablet by mouth daily 09/12/19 21 Ozempic 0.25 mg or 0.5 mg(2 mg/1.5 mL) pen injector Inject 0.25 mg under the skin once a week 0 07/21/[address] (PROTONIX) 40 mg EC tabletIndications: Treatment of Non-Bleeding Gastric Disorder Take 1 tablet (40 mg total) by mouth daily 30 tablet 0 01/13/20 20 rosuvastatin (CRESTOR) 20 mg tablet Take 1 tablet (20 mg total) by mouth daily 30 tablet 11 0 06/21/19 21 documented as of this encounter Ordered Prescriptions Prescription Sig Dispense Quantity Refills Last Filled Start Date End Date rosuvastatin (CRESTOR) 20 mg tablet Take 1 tablet (20 mg total) by mouth daily 30 tablet 06/14/2019 1 amiodarone (PACERONE) 200 mg tablet Take 1 tablet (200 mg total) by mouth daily 30 tablet 06/28/2019 0 amiodarone (PACERONE) 400 mg tabletIndications: Prevention of Recurrent Atrial Fibrillation Take 1 tablet (400 mg total) by mouth 2 (two) times a day for 14 days After 2 weeks continue 200 QD 28 tablet 06/13/2019 0 aspirin 81 mg chewable tablet Take 1 tablet (81 mg total) by mouth daily 30 tablet 11 06/14/2019 0 apixaban (ELIQUIS) 5 mg tabletIndications: deep venous thrombosis Take 1 tablet (5 mg total) by mouth 2 (two) times a day 60 tablet 11 06/17/2019 1 apixaban (ELIQUIS) 5 mg tabletIndications: deep venous thrombosis Take 2 tablets (10 mg total) by mouth 2 (two) times a day for 8 doses 16 tablet 06/13/2019 0 carvediloL (COREG) 6.25 mg tablet Take 1 tablet (6.25 mg total) by mouth 2 (two) times a day with meals 60 tablet 11 06/13/2019 0 documented in this encounter Discharge Disposition Disposition Code Departure Means Destination Discharge to [facility] documented in this encounter Progress Notes * Yoly Cook LCSW - 06/13/2019 12:53 PM CDT 06/13/19 1250 Discharge Summary Discharge Disposition SNF, Commercial Insurance, Short term Skilled Specify Facility [address] Facility Contact Number [phone] fax [phone] Discharge Records Chart Copied;Transfer Form Completed Discharge Additional Assistance Does the patient need discharge transport arranged? Yes Has discharge transport been arranged? Yes Details of Transportation [facility] [phone] Trip # [id number] What day is the transport expected? 06/13/19 What time is the transport expected? 1400 Discharge Transportation Communication Mode of transport has been discussed with the patient/family. All are agreeable to the plan and understand their responsibilities to ensure the safe transfer. No further CM/SW intervention is anticipated at this time. Post Discharge Care Provider Post Discharge Care Plan DC Summary has been faxed to next level of care provider (see Follow Up Providers) SW faxed d/c summary and med list to [phone]. All parties are aware and agreeable to d/c plan.SW did call and speak with pt's , Ravi, per pt's request [phone]. RN aware to call report. SW completed the transfer COVID-19 form. No further SW needs at this time. Cat UDAY Cook [phone] * Yoly Cook LCSW - 06/13/2019 12:50 PM CDT 06/13/19 1250 Communications Important Message from Medicare notice given to patient? Yes Copy of IM letter provided to pt. SW also faxed IM letter to [phone]. SW to follow. Cat UDAY Cook [phone] * Ryann Juarez MD - 06/13/2019 6:34 AM CDT Ortho Recon Daily Progress Subjective 79 yo F s/p comminuted distal femur fx 05/20 s/p a ground level fall, s/p I&D with Dr. Castro nd L DFR 05/[address] Charles. Pt admitted 06/07 for worsening SOB, CT PE showing massive bilateral PE in all primary pulm arteries and all lung segments. Ortho consulted for wound eval. Medial traumatic wound. Interval History: Pain controlled, no issues overnight. Dressing changed this morning, incision without drainage. Objective Vitals: 24hr Min/Max: Temp Min: 36.4 ??C (97.5 ??F) Max: 37 ??C (98.6 ??F) Pulse Min: 68 Max: 88 BP Min: 130/74 Max: 154/96 Resp Min: 18 Max: 20 SpO2 Min: 93 % Max: 98 % Most Recent : Vitals: 06/13/19 0437 BP: 154/96 Pulse: 88 Resp: 20 Temp: 36.4 ??C (97.5 ??F) SpO2: 93% I/O last 2 completed shifts: In: 280 [P.O.:280] Out: 1250 [Urine:1250] I/O this shift: In: 280 [P.O.:280] Out: 750 [Urine:750] Physical Exam: Awake, alert, oriented No acute distress Breathing regular and unlabored LLE Midline incision clean, no drainage, medial traumatic wound healing without areas of dehiscence or drainage. Sensation intact in the superficial peroneal, deep peroneal, and tibial nerves 5/5 strength TA, GS, EHL, FHL Dorsalis pedis pulse on affected limb palpable Lab/Radiology/Diagnostic Review: Laboratory review: Chemistry CMP: Lab Results Component Value Date BUNSER 19 06/12/2019 CALCIUM 8.8 06/12/2019 CO2 29 06/12/2019 CHLORIDE 99 06/12/2019 CREATININE 0.69 06/12/2019 GLUCOSE 174 06/12/2019 POTASSIUM 4.2 06/12/2019 SODIUM 135 06/12/2019 , Chemistry BMP Lab Results Component Value Date GLUCOSE 174 06/12/2019 CALCIUM 8.8 06/12/2019 SODIUM 135 06/12/2019 POTASSIUM 4.2 06/12/2019 CO2 29 06/12/2019 BUNSER 19 06/12/2019 CREATININE 0.69 06/12/2019 and CBC: Lab Results Component Value Date WBC 5.9 06/12/2019 RBC 2.79 (L) 06/12/2019 HGB 8.4 (L) 06/12/2019 HCT 28.0 (L) 06/12/2019 MCV 100.4 (H) 06/12/2019 MCH 30.1 06/12/2019 MCHC 30.0 (L) 06/12/2019 RDWCV 16.1 (H) 06/12/2019 RDWSD 59.7 (H) 06/12/2019 MPV 10.5 06/12/2019 NRBCABS 0.00 06/12/2019 Assessment/Plan S/p L DFR 3 for open distal femur fracture, medial traumatic wound serous drainage 1. Plan: nonoperative management, discharge with prevena. Dressing: midline incision with theodore, gauze/tagederm. Medial wound with nylon suture, prevena. 2. WBAT LLE, can use walker or crutches as tolerated. 3. Please order PT/OT/out of bed when able, encourage ambulation 4. Diet per primary 5. Pain control 6. OK to discharge from ortho perspective. Continue prevena x1 week until battery dies. Ryann Juarez MD Adult Reconstruction Fellow Pager: [phone] * David Horn MD - 06/12/2019 8:47 AM CDT Cardiology Daily Progress Note Subjective Chief Complaint: SOB Interval History: -No acute overnight events -2L NC, HR controled -No new symptoms or complaints Objective Vitals: 24hr Min/Max: Temp Min: 36.6 ??C (97.9 ??F) Max: 37 ??C (98.6 ??F) Pulse Min: 70 Max: 97 BP Min: 139/87 Max: 159/94 Resp Min: 18 Max: 20 SpO2 Min: 94 % Max: 99 % I/O: I/O last 2 completed shifts: In: 280 [P.O.:280] Out: 1700 [Urine:1700] I/O this shift: In: - Out: 200 [Urine:200] Physical Exam: General: In no acute distress. Sitting up in chair. HEENT: Sclera nonicteric. Moist mucous membranes. Cardiac: Normal rate, irregular rhythm. No murmurs, rubs, or gallops. Pulmonary: No increased work of breathing. Crackles in lung bases on left. No wheezing or ronchi Abdomen: Soft, nondistended, nontender. Extremities: trace pitting edema in bilateral lower extremities. Neurologic: Alert and oriented to person/place/time. Psychiatric: Normal mood and affect, pleasant and conversant. Lab & Radiology Review: I have reviewed the results. Imaging Results: Xr Chest Pa Lateral 2 Vw Result Date: 06/08/2019 Comparison made with prior examination from 05/30/2019. In the interval, there is small bilateral pleural effusions have increased. In addition, there is diffuse reticulonodular interstitial opacitiescompatible with pulmonary edema. 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 Moderate cardiomegaly is present. This compilation of findings is compatible with congestive heart failure. Electronically signed by: Jorge Sotomayor M.D., MPH Ct Chest Pe W Contrast Result Date: 06/09/2019 1. Bilateral pulmonary emboli extending all segments and all lobes of the main pulmonary arteries. This is associated with right heart enlargement. This may be seen in the setting of right heart strain. Please correlate with clinical, laboratory values and echocardiography, if clinically indicated to assess for massive or submassive pulmonary emboli. 2. Bilateral pleural effusions. Indeterminant left adrenal nodule. Recommend follow up of the Incidental adrenal nodule Additional Imaging in 3 Months with MRI. The Critical results were discussed with Sasha Partida RN by Dr. Sotomayor on 06/09/2019at 1805 Electronically signed by: Jorge Sotomayor M.D., MPH A/P Ms. Pearce is a 79 y.o. female with a history of atrial fibrillation, HFrEF, HTN, recent PE presenting with SOB. #Submassive PE - provoked PE in setting of poor mobilization following left hip injury; on warfarinat home; INR=3.0 this admission. Repeat CTPE with bilateral PE in all primary pulmonary arteries and all lung segments. - Troponin trending down - Started Eliquis 10 BID x 7d, then 5 BID indefinitely ?? #Atrial fibrillation /w RVR - manifesting as SOB, not palpitations; blood pressure stable; patient received 3x metoprolol 5mg IV, with rate from 140s -> 110s; possibly related to new PE, though therapeutic INR at 3; possibly due to poor medication compliance; possibly due to worsening CAD/dilation of atria causing greater structural inference with conduction system - Amio 400 TID - Carvedilol 6.25 BID - DOAC as above ?? #NSTEMI - EKG with TWI in anterior leads, unlikely to be evolving intracoronary event given troponin trending down but troponin more elevated than would be expected from demand. S/p ASA loading in ED; trop peak at 6.34; noted to trend down - ASA 81/rosuva 20 Qday - Troponin trending down. Peaked at 6.34, last troponin 2.97 - Outpt [facility] once acute illness resolves #Distal femur fracture: S/p ORIF 05/24. Ortho following. Non-op mgmt. PT/OT/OOBTC. - Wound vac, WV change on 06/12 ?? #Acute on chronic HFrEF - symptoms of volume overload, possibley related to poor filling of ventricles in setting of a fib/w RVR but LVEF significantly decreased at 38% on 05/30/19 from 51% in 01/01. - Lasix 20 BID - bb as above - losartan 50mg PO Qday ?? #T2DM - last A1c= 6.5; on metformin at home - LDSSI ?? #Hypothyroidism - levothyroxine 25mcg Qday Diet: diabetic, low sodium/low fat PPx: DOAC TLD: PIV x1, wound vac PT/OT: ordered, WBAT Code: FULL Dispo: return to rehab likely 06/12 David Horn MD Cosigned by Donaldo Poe MD at 06/14/2019 8:02 AM CDT Associated attestation - Donaldo Poe MD - 06/14/2019 8:02 AM CDT I have seen and examined the patient on 06/12/2019. I agree with the findings and plan of care as documented in the resident's/fellow's note. * Krystle KaileyRICH barnes - 06/11/2019 1:33 PM CDT 06/09/19 0100 Information Information Obtained From Spouse Name via telephone-Ravi Pearce [phone] Referral Data Referral Source Therapist Referral Reason Discharge Planning Prior to Admission Primary Caregiver Facility staff Support System Spouse/Significant Other Support system contact info (name, phone, availablity) Ravi Pearce [phone] Home Care Services No Durable Medical Equipment None Living Arrangements [facility] ([place]. Pt living with spouse prior to admission at [facility] this month. ) Type of Residence [facility] Does patient wish to return to care facility? Unable to assess Facility contact name and number: [place] Financial Resource Income Prison/Pension Payor Source Medicare advantage Potential Discharge Needs Home Health detention Anticipated discharge level of care Acute Rehab Pt/Family agrees with Anticipated Level of Care Unknown Comment Unable to speak with patient. has not decided at this point. Patient expects to be discharged to: Acute Rehab Social History: Prior to admission the patient was living at [place] for a short period oftime. Pt was living at home with her independently prior to [place]. Pt resides with her spouse Ravi Pearce [phone]. Pt was not using DME at home, but believes she owns walker/cane. Pt has good support system in her and friends, Pat and Luis M. Additional Information: Social work attempted to call patient in her room, but was unable to contact pt. Sw spoke with pt's via telephone, and reviewed chart for assessment completion, and discuss d/c planning needs. Social work informed the that d/c recommendations indicate transfer to inpatient rehab. Social work provided information on the inpatient rehabilitation process, and discussed options in the area. Social work discussed d/c options to meet the patient's needs. is undecided at this point where, or what level of care he would like for patient. reported at this time, he is more concerned with patient being medically ready for discharge, and does not believe patient is ready at this time. is not ready to make a decision. Allscripts referral will be sent to facilities when and patient communicate their preference. Impressions: Social work unable to meet with patient due to SW not being able to enter the room [id number] precautions in the hospital. Based on a comprehensive family assessment, assistance with instrumental activities of daily livingafter discharge will be provided by facility pt discharges to. Through the course of our work I determined that inpatient acute rehab the skill and ability to provide and monitor the care of the patient when he or she returns home. Inpatient acute rehab has the capacity to provide/monitor/arrange for the care of the patient. Finally, we determined that inpatient acute rehab has the knowledge of available resources and that combining them with their existing resources will suffice to sustain and care for the patient when he or she returns home. The treatment team is aware of this information. All are in agreement with the aftercare plan. Problem: Patient identified as benefiting from continued therapy services at d/c. OT recs for inpatient acute rehab. PT recs pending. Goal: Social work will work on placement assistance for discharge planning purposes. Social Work Plan: Allscripts referral will be sent to facilities of choice once decided. Insurance Information: Kaye Kailey Quevedoson [employer], Weekend Public Health Informatician For emergency needs from 4:31 p.m. - 7:59 a.m., please call the ED Public Health Informatician . For weekend needs from 8:00 a.m. - 4:30 p.m., please call the Weekend Social Work Staff . * Morgan Herrera MD - 06/11/2019 10:03 AM CDT Cardiology Daily Progress Note Subjective Chief Complaint: SOB Interval History: NAONE. Ongoing dyspnea, but improving. No CP, or QUINTIN. Started Eliquis yesterday, which patient tolerated well. Ortho saw patient, and placed a wound vac over her L knee. Objective Vitals: 24hr Min/Max: Temp Min: 36.4 ??C (97.5 ??F) Max: 36.8 ??C (98.2 ??F) Pulse Min: 64 Max: 96 BP Min: 115/83 Max: 173/96 Resp Min: 16 Max: 22 SpO2 Min: 93 % Max: 100 % I/O: I/O last 2 completed shifts: In: 1291.9 [P.O.:1080; I.V.:211.9] Out: 1775 [Urine:1775] No intake/output data recorded. Physical Exam: General: In no acute distress. HEENT: Sclera nonicteric. Moist mucous membranes. Cardiac: Normal rate, irregular rhythm. No murmurs, rubs, or gallops. Pulmonary: No increased work of breathing. Crackles in lung bases on left. No wheezing or ronchi Abdomen: Soft, nondistended, nontender. Extremities: trace pitting edema in bilateral lower extremities. Neurologic: Alert and oriented to person/place/time. Psychiatric: Normal mood and affect, pleasant and conversant. Lab & Radiology Review: I have reviewed the results. Imaging Results: Xr Chest Pa Lateral 2 Vw Result Date: 06/08/2019 Comparison made with prior examination from 05/30/2019. In the interval, there is small bilateral pleural effusions have increased. In addition, there is diffuse reticulonodular interstitial opacitiescompatible with pulmonary edema. 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 Moderate cardiomegaly is present. This compilation of findings is compatible with congestive heart failure. Electronically signed by: Jorge Sotomayor M.D., MPH Ct Chest Pe W Contrast Result Date: 06/09/2019 1. Bilateral pulmonary emboli extending all segments and all lobes of the main pulmonary arteries. This is associated with right heart enlargement. This may be seen in the setting of right heart strain. Please correlate with clinical, laboratory values and echocardiography, if clinically indicated to assess for massive or submassive pulmonary emboli. 2. Bilateral pleural effusions. Indeterminant left adrenal nodule. Recommend follow up of the Incidental adrenal nodule Additional Imaging in 3 Months with MRI. The Critical results were discussed with Sasha Partida RN by Dr. Sotomayor on 06/09/2019at 1805 Electronically signed by: Jorge Sotomayor M.D., MPH A/P Ms. Pearce is a 79 y.o. female with a history of atrial fibrillation, HFrEF, HTN, recent PE presenting with SOB. #Submassive PE - provoked PE in setting of poor mobilization following left hip injury; on warfarinat home; INR=3.0 this admission. Repeat CTPE with bilateral PE in all primary pulmonary arteries and all lung segments. - Troponin trending down - Started Eliquis 10 BID x 7d, then 5 BID indefinitely ?? #Atrial fibrillation /w RVR - manifesting as SOB, not palpitations; blood pressure stable; patient received 3x metoprolol 5mg IV, with rate from 140s -> 110s; possibly related to new PE, though therapeutic INR at 3; possibly due to poor medication compliance; possibly due to worsening CAD/dilation of atria causing greater structural inference with conduction system - Amio 400 TID - Carvedilol 6.25 BID - DOAC as above ?? #NSTEMI - EKG with TWI in anterior leads, unlikely to be evolving intracoronary event given troponin trending down but troponin more elevated than would be expected from demand. S/p ASA loading in ED; trop peak at 6.34; noted to trend down - ASA 81/rosuva 20 Qday - Troponin trending down. Peaked at 6.34, last troponin 2.97 - Outpt [facility] once acute illness resolves #Distal femur fracture: S/p ORIF 05/24. Ortho following. Non-op mgmt. PT/OT/OOBTC. - Wound vac, WV change on 06/12 ?? #Acute on chronic HFrEF - symptoms of volume overload, possibley related to poor filling of ventricles in setting of a fib/w RVR but LVEF significantly decreased at 38% on 05/30/19 from 51% in 01/01. - Lasix 20 BID - bb as above - losartan 50mg PO Qday ?? #T2DM - last A1c= 6.5; on metformin at home - LDSSI ?? #Hypothyroidism - levothyroxine 25mcg Qday Diet: diabetic, low sodium/low fat PPx: DOAC TLD: PIV x1 PT/OT: ordered, WBAT Code: FULL Dispo: return to rehab likely 06/12 Morgan Herrera MD Cosigned by Donaldo Poe MD at 06/14/2019 8:10 AM CDT Associated attestation - Donaldo Poe MD - 06/14/2019 8:10 AM CDT I have seen and examined the patient on 06/11/19. I agree with the findings and plan of care as documented in the resident's/fellow's note. * Steve Kumar MD - 06/11/2019 7:46 AM CDT Ortho Recon Daily Progress Subjective 79 yo F s/p comminuted distal femur fx 05/20 s/p a ground level fall, s/p I&D with Dr. Castro nd L DFR 05/[address] Charles. Pt admitted 06/07 for worsening SOB, CT PE showing massive bilateral PE in all primary pulm arteries and all lung segments. Ortho consulted for wound eval. Medial traumatic wound with 1 day of serous drainage. Interval History: Pain well controlled, no CP/SOB CRP 54.8 from 67 Objective Vitals: 24hr Min/Max: Temp Min: 36.4 ??C (97.5 ??F) Max: 36.8 ??C (98.2 ??F) Pulse Min: 65 Max: 96 BP Min: 115/83 Max: 146/84 Resp Min: 16 Max: 22 SpO2 Min: 93 % Max: 100 % Most Recent : Vitals: 06/11/19 0318 BP: 134/79 Pulse: 79 Resp: 16 Temp: 36.5 ??C (97.7 ??F) SpO2: 99% I/O last 2 completed shifts: In: 1291.9 [P.O.:1080; I.V.:211.9] Out: 1775 [Urine:1775] No intake/output data recorded. Negative Pressure Wound Therapy Left Knee (Active) Site Assessment Intact;Prichard 06/10/2019 7:00 PM Taya-wound Assessment Dry;Intact 06/10/2019 7:00 PM Unit Type Ulta vac 06/10/2019 7:00 PM Dressing/Foam Type Black foam 06/10/2019 7:00 PM # of Foam Pieces Placed 3 06/10/2019 7:00 PM Cycle Continuous 06/10/2019 7:00 PM Canister Changed Yes 06/10/2019 7:00 PM Dressing Status New;Clean/Dry/Intact;Wound vac intact 06/10/2019 7:00 PM Dressing Change Due 06/13/19 06/10/2019 7:00 PM Drain output (mL) 0 mL 06/11/2019 3:00 AM Net Output (mL) 0 mL 06/11/2019 3:00 AM Surgical Site 05/22/19 Left Leg (Active) Site Assessment Clean;Light purple;Edema 06/05/2019 4:02 AM Taya-wound Assessment Dry;Intact 06/05/2019 4:02 AM Closure Theodore 06/05/2019 4:02 AM Drainage Amount None 06/05/2019 4:02 AM Drainage Description Solorzano 06/03/2019 3:15 PM Drainage Odor No odor 06/05/2019 4:02 AM Dressing Status New;Changed;Clean/Dry/Intact 06/05/2019 4:02 AM Dressing Gauze;Tape 06/05/2019 9:11 AM Interventions Cleansed;Site care 06/05/2019 4:02 AM Surgical Site 05/25/19 Left Knee (Active) Site Assessment Intact;Prichard 06/10/2019 7:00 PM Taya-wound Assessment Dry;Intact 06/10/2019 7:00 PM Closure Theodore;Sutures 06/10/2019 7:00 PM Drainage Amount Small 06/10/2019 7:00 PM Drainage Description Serosanguineous 06/10/2019 7:00 PM Drainage Odor No odor 06/10/2019 7:00 PM Dressing Status Changed;Clean/Dry/Intact;Wound vac intact 06/10/2019 7:00 PM Dressing Vacuum dressing 06/10/2019 7:00 PM Adhesive Closure Strips Applied 05/25/2019 2:30 PM Interventions Site care 06/10/2019 7:00 PM Negative Pressure Wound Therapy Used Yes 06/10/2019 7:00 PM Physical Exam: Awake, alert, oriented No acute distress Breathing regular and unlabored LLE WV with intact seal Sensation intact in the superficial peroneal, deep peroneal, and tibial nerves 5/5 strength TA, GS, EHL, FHL Dorsalis pedis pulse on affected limb palpable Lab/Radiology/Diagnostic Review: Laboratory review: Chemistry CMP: Lab Results Component Value Date ALBUMIN 3.1 (L) 06/09/2019 BUNSER 18 06/11/2019 CALCIUM 8.8 06/11/2019 CO2 25 06/11/2019 CHLORIDE 100 06/11/2019 CREATININE 0.60 06/11/2019 GLUCOSE 154 06/11/2019 POTASSIUM 3.9 06/11/2019 SODIUM 134 (L) 06/11/2019 BILITOT 1.3 (H) 06/09/2019 PROT 6.6 06/09/2019 ALT 39 06/09/2019 AST 50 (H) 06/09/2019 ALKPHOS 116 06/09/2019 , Chemistry BMP Lab Results Component Value Date GLUCOSE 154 06/11/2019 CALCIUM 8.8 06/11/2019 SODIUM 134 (L) 06/11/2019 POTASSIUM 3.9 06/11/2019 CO2 25 06/11/2019 BUNSER 18 06/11/2019 CREATININE 0.60 06/11/2019 and CBC: Lab Results Component Value Date WBC 6.8 06/11/2019 RBC 2.92 (L) 06/11/2019 HGB 8.5 (L) 06/11/2019 HCT 29.0 (L) 06/11/2019 MCV 99.3 (H) 06/11/2019 MCH 29.1 06/11/2019 MCHC 29.3 (L) 06/11/2019 RDWCV 16.4 (H) 06/11/2019 RDWSD 59.5 (H) 06/11/2019 MPV 10.6 06/11/2019 NRBCABS 0.02 (H) 06/11/2019 Assessment/Plan S/p L DFR 05/24 for open distal femur fracture, medial traumatic wound serous drainage 1. Plan: nonoperative management with WV 2. WBAT LLE, can use walker or crutches as tolerated. 3. Please order PT/OT/out of bed when able, encourage ambulation 4. Diet per primary 5. Pain control 6. Maintain wound vac; please chart output q12 hours and call if wound vac loses suction 7. Ortho will continue to follow, plan for WV change on 06/12 Please call with questions. Steve Kumar MD PGY-4, Orthopaedic Surgery [phone] If unable to reach by phone, please page using [email or web address] If questions arise overnight or on weekends, the ortho team can be reached at: [phone] (Floor Resident ) [phone] (Consult Resident) * Shira Noland, RN - 06/10/2019 11:39 AM CDT 06/10/19 1136 Information Information Obtained From Patient Referral Data Referral Source Community Support Associate Referral Reason Discharge Planning Prior to Admission Primary Caregiver Self Support System Spouse/Significant Other Support system contact info (name, phone, availablity) Home Care Services No Durable Medical Equipment None Living Arrangements Spouse/significant other Type of Residence Private residence Financial Resource Income Prison/Pension Payor Source Medicare advantage Potential Discharge Needs Anticipated discharge level of care detention facility Pt/Family agrees with Anticipated Level of Care Yes Patient expects to be discharged to: [facility] Facility Dialysis No Behavioral Health Services No Impression: Transferred from SNF for c/o dizziness and SOB Plan includes: To return to SNF to continue rehab Insurance Verified as: [employer] Medicare Admission Source: From SNF She states she plans to return to facility to strengthen to be able to return to her home [facility]. Sheis currently using oxygen which is new from prior to rehab. She will likely need ambulance transport to return to [place] when stable. dairy farm manager will continue to follow and assist as needed. Through the course of our work I determined that possesses the skill and ability to provideand monitor the care of the patient when he or she returns home. has the capacity to provide/monitor/arrange for the care of the patient. Finally, we determined that has the knowledgeof available resources and that combining them with their existing resources will suffice to sustain and care for the patient when he or she returns home. The treatment team is aware of this information. All are in agreement with the aftercare plan. * David Horn MD - 06/10/2019 8:44 AM CDT Cardiology Daily Progress Note Subjective Chief Complaint: SOB Interval History: -CTPE with bilateral PE most prominent on right but in bilateral pulmonary arteries and all lung segemnts -3-4L O2 NC -Afib rate controlled on PO amio and carvedilol Objective Vitals: 24hr Min/Max: Temp Min: 36.3 ??C (97.3 ??F) Max: 36.9 ??C (98.4 ??F) Pulse Min: 81 Max: 116 BP Min: 105/74 Max: 152/87 Resp Min: 18 Max: 23 SpO2 Min: 94 % Max: 97 % I/O: I/O last 2 completed shifts: In: 1121.1 [P.O.:820; I.V.:301.1] Out: 650 [Urine:650] No intake/output data recorded. Physical Exam: General: In no acute distress. HEENT: Sclera nonicteric. Moist mucous membranes. Cardiac: Normal rate, irregular rhythm. No murmurs, rubs, or gallops. Pulmonary: No increased work of breathing. Crackles in lung bases on left. No wheezing or ronchi Abdomen: Soft, nondistended, nontender. Extremities: 1+ pitting edema in bilateral lower extremities. Neurologic: Alert and oriented to person/place/time. Psychiatric: Normal mood and affect, pleasant and conversant. Lab & Radiology Review: I have reviewed the results. Imaging Results: Xr Chest Pa Lateral 2 Vw Result Date: 06/08/2019 Comparison made with prior examination from 05/30/2019. In the interval, there is small bilateral pleural effusions have increased. In addition, there is diffuse reticulonodular interstitial opacitiescompatible with pulmonary edema. 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 Moderate cardiomegaly is present. This compilation of findings is compatible with congestive heart failure. Electronically signed by: Jorge Sotomayor M.D., MPH Ct Chest Pe W Contrast Result Date: 06/09/2019 1. Bilateral pulmonary emboli extending all segments and all lobes of the main pulmonary arteries. This is associated with right heart enlargement. This may be seen in the setting of right heart strain. Please correlate with clinical, laboratory values and echocardiography, if clinically indicated to assess for massive or submassive pulmonary emboli. 2. Bilateral pleural effusions. Indeterminant left adrenal nodule. Recommend follow up of the Incidental adrenal nodule Additional Imaging in 3 Months with MRI. The Critical results were discussed with Sasha Partida RN by Dr. Sotomayor on 06/09/2019at 1805 Electronically signed by: Jorge Sotomayor M.D., MPH A/P Ms. Pearce is a 79 y.o. female with a history of atrial fibrillation, HFrEF, HTN, recent PE presenting with SOB. #Submassive PE - provoked PE in setting of poor mobilization following left hip injury; on warfarinat home; INR=3.0 this admission. Repeat CTPE with bilateral PE in all primary pulmonary arteries and all lung segments. - Troponin trending down - Heparin gtt, plan for DOAC at dispo ?? #Atrial fibrillation /w RVR - manifesting as SOB, not palpitations; blood pressure stable; patient received 3x metoprolol 5mg IV, with rate from 140s -> 110s; possibly related to new PE, though therapeutic INR at 3; possibly due to poor medication compliance; possibly due to worsening CAD/dilation of atria causing greater structural inference with conduction system - Amio 400 TID - Carvedilol 6.25 BID - heparin gtt for AC, plan for DOAC ?? #NSTEMI - EKG with TWI in anterior leads, unlikely to be evolving intracoronary event given troponin trending down but troponin more elevated than would be expected from demand. S/p ASA loading in ED; trop peak at 6.34; noted to trend down - ASA 81/rosuva 20 Qday - Troponin trending down. Peaked at 6.34, last troponin 2.97 ?? #Acute on chronic HFrEF - symptoms of volume overload, possibley related to poor filling of ventricles in setting of a fib/w RVR but LVEF significantly decreased at 38% on 05/30/19 from 51% in 01/01. - Lasix 20mg IV for volume overload - bb as above - losartan 50mg PO Qday ?? #T2DM - last A1c= 6.5; on metformin at home - LDSSI ?? #Hypothyroidism - levothyroxine 25mcg Qday Diet: diabetic, low sodium/low fat PPx: hep gtt TLD: PIV x1 PT/OT: ordered, WBAT Code: FULL Dispo: return to rehab when ready David Horn MD Cosigned by Donaldo Poe MD at 06/11/2019 11:22 AM CDT Associated attestation - Donaldo Poe MD - 06/11/2019 11:22 AM CDT I have seen and examined the patient on 06/10/2019. I agree with the findings and plan of care as documented in the resident's/fellow's note. * Dolores Kam [facility] - 06/09/2019 11:31 AM CDT Pharmacist Admission Medication Reconciliation The clinical clinical pharmacy manager has completed a medication review with the patient/caregiver and has made the following edits to the home medication list: *The following medication history was obtained via discussion with RN from [place]* Medication additions Novolog per sliding scale Buspirone 5mg PO daily x 1 week Duo-Nebs q6h PRN Medication deletions Senna-docusate 8.6-50mg 2 tablets PO BID Medication alterations Added dose/route/frequency for alprazolam Added dose for cholecalciferol Increased losartan from 50mg daily to 100mg daily Home medications - following pharmacist reconciliation Prema Pearce Home Medication Instructions ROMMEL:[id number] Printed on:06/09/19 1129 Medication Information 08 AM 10 AM 12 Noon 06 PM 08 PM 10 PM Bed time acetaminophen 500 mg capsule Take 2 capsules (1,000 mg total) by mouth every 6 (six) hours as needed for pain ALPRAZolam (XANAX) 0.25 mg tablet Take 0.25 mg by mouth 3 (three) times a day as needed busPIRone (BUSPAR) 5 mg tablet Take 5 mg by mouth daily Take 5mg by mouth daily x 1 week, then increase to 5mg twice daily carvedilol (COREG) 25 mg tablet Take 1 tablet (25 mg total) by mouth 2 (two) times a day with meals cholecalciferol, vitamin D3, (VITAMIN D3 ORAL) Take 400 Units by mouth daily DULoxetine DR (CYMBALTA) 60 mg capsule Take 60 mg by mouth daily furosemide (LASIX) 20 mg tablet Take 1 tablet (20 mg total) by mouth 2 (two) times a day insulin aspart U-100 (NovoLOG) 100 unit/mL (3 mL) insulin pen Administer subcutaneously per sliding scale ipratropium-albuteroL (DUO-NEB) 0.5-2.5 mg/3 mL nebulizer solution Take 3 mL by nebulization every 6 (six) hours as needed for wheezing or shortness of breath levothyroxine (SYNTHROID, LEVOTHROID) 25 mcg tablet Take 25 mcg by mouth daily losartan (COZAAR) 100 mg tablet Take 100 mg by mouth daily lovastatin (MEVACOR) 10 mg tablet TAKE ONE TABLET BY MOUTH ONCE DAILY AT BEDTIME metFORMIN XR (GLUCOPHAGE XR) 500 mg 24 hr tablet Take 1,000 mg by mouth daily with breakfast multivit,iron,minerals/lutein (CENTRUM SILVER ULTRA WOMEN'S ORAL) Take 1 tablet by mouth daily oxyCODONE-acetaminophen (PERCOCET) 5-325 mg per tablet Take 1-2 tablets by mouth every 4 (four) hours as needed for pain Ozempic 0.25 mg or 0.5 mg(2 mg/1.5 mL) pen injector Inject 0.25 mg under the skin once a week pantoprazole DR (PROTONIX) 40 mg EC tablet Take 1 tablet (40 mg total) by mouth daily potassium chloride ER (KLOR-CON) 20 mEq CR tablet Take 1 tablet (20 mEq total) by mouth daily warfarin (COUMADIN) 2 mg tablet Take 1 tablet (2 mg total) by mouth daily zolpidem (AMBIEN) 5 mg tablet Take 5 mg by mouth nightly. at bedtime. Allergies - following pharmacist reconciliation Prasanth inhibitors; Citalopram; and Lisinopril Samia Kam, PharmD, [facility] Clinical [employer] Driver - Transitions of Care [phone] documented in this encounter H&P Notes * O'Georgie, Ravi Grayson MD - 06/09/2019 3:05 AM CDT Cardiology History and Physical - General Cardiology Patient Name: Prema Pearce : 1940 Date of Service: 06/09/19 Chief Complaint: SOB HPI HPI: Prema Pearce is a 79 y.o. female with a history of atrial fibrillation, HFrEF, HTN, recent PEpresenting with SOB. Patient states past few days she has felt increasing SOB. Though she has been SOB for years , overthe past few days it has increased. For example, she cannot it make to the commode as she used to as she feels she does not have enough air . Associated with this SOB has been swelling in her lower extremities, which has been worsening. Yesterday, at 2pm, she was witnessed to pass out for a few seconds by her therapist. No prodromal symptoms. No fall or trauma. It was at that point she felt she should go to ED. Patient denies chest pain/palpations/fevers/chills. Her taste/smell is intact. Norecent travel within the last 2 weeks. No recent sick contacts or Covid contacts or quarantine conta cts. Review of Systems: Review of systems as per HPI and, otherwise all other systems are negative. PMHX: has a past medical history of Atrial fibrillation (CMS/HCC), Dyslipidemia, Hypertension, Hypothyroidism, Mitral regurgitation, Obesity, PONV (postoperative nausea and vomiting), and Sleep apnea. PSHX: has a past surgical history that includes Hysterectomy; Cholecystectomy; Breast lumpectomy; Hand surgery (Left); and Incision and drainage femur (Left, 05/22/2019). Family Hx: family history includes Diabetes in her father and son; Heart attack in her father; Heart failure in her mother; Hypertension in her father; Sudden Cardiac in her mother. Social Hx: reports that she has never smoked. She has never used smokeless tobacco. She reports current alcohol use. She reports that she does not use drugs. Allergies: Allergies Allergen Reactions ??? Prasanth Inhibitors Cough Reaction: COUGH, ??? Citalopram ??? Lisinopril Home Medications: HOME MEDICATIONS : acetaminophen 500 mg capsule ALPRAZolam (XANAX) 0.25 mg tablet carvedilol (COREG) 25 mg tablet cholecalciferol, vitamin D3, (VITAMIN D3 ORAL) DULoxetine DR (CYMBALTA) 30 mg capsule furosemide (LASIX) 20 mg tablet levothyroxine (SYNTHROID, LEVOTHROID) 25 mcg tablet losartan (COZAAR) 50 mg tablet lovastatin (MEVACOR) 10 mg tablet metFORMIN (GLUCOPHAGE) 1,000 mg tablet multivit,iron,minerals/lutein (CENTRUM SILVER ULTRA WOMEN'S ORAL) oxyCODONE-acetaminophen (PERCOCET) 5-325 mg per tablet Ozempic 0.25 mg or 0.5 mg(2 mg/1.5 mL) pen injector pantoprazole DR (PROTONIX) 40 mg EC tablet potassium chloride ER (KLOR-CON) 20 mEq CR tablet senna-docusate (PERICOLACE) 8.6-50 mg warfarin (COUMADIN) 2 mg tablet zolpidem (AMBIEN) 5 mg tablet Current Medications: insulin lispro, 1-2 Units, subcutaneous, TID with meals magnesium oxide, 800 mg, oral, Once metoprolol (LOPRESSOR) tablet/capsule, 25 mg, oral, BID polyethylene glycol, 17 g, oral, Daily sodium chloride 0.9%, 0.5-20 mL, intra-catheter, Q8H MISHA heparin, 1-33 Units/kg/hr, Last Rate: 11 Units/kg/hr (06/08/19 9746) Objective Vital Signs: 24hr Min/Max: Temp Min: 37 ??C (98.6 ??F) Max: 37 ??C (98.6 ??F) Pulse Min: 105 Max: 132 BP Min: 109/94 Max: 146/104 Resp Min: 18 Max: 29 SpO2 Min: 92 % Max: 97 % Most Recent: Vitals: 06/09/19 0114 BP: (!) 146/104 Pulse: 110 Resp: 22 Temp: 37 ??C (98.6 ??F) SpO2: 95% Intake/Output: No intake or output data in the 24 hours ending 06/09/19 0305 Physical Exam: General appearance: no acute distress ,non-toxic HEENT: NCAT, MMM, anicteric Lungs: crackles predominant lower lung lopes, bilateral Heart: irregularly irregular, tachycardia, S1, S2 normal, no murmur, rub or gallop. 1+ pitting edema to knees Abdomen: soft, NT/ND; bowel sounds normal Extremities: extremities normal, warm and well-perfused, equal pulses Skin: warm and dry Neurologic: No abnormal movements, non-focal exam Psych: Normal mood and affect Lab/Radiology/Diagnostic Review: Labs: Recent Labs Lab Units 06/08/19212106/08/19170906/04/19205006/03/19221606/02/19 2304 HEMOGLOBIN g/dL 8.5* 8.6* 7.7* 7.7* 8.3* HEMATOCRIT % 28.6* 28.3* 25.8* 25.2* 26.5* WBC K/cumm 7.9 7.0 7.5 9.0 11.3* PLATELETS K/cumm 276 255 389 398 414* Recent Labs Lab Units 06/08/191709 SODIUM mmol/L 136 POTASSIUM PLASMA mmol/L 4.1 CHLORIDE mmol/L 103 CO2 mmol/L 25 ANIONGAP mmol/L 8 BUN SERUM mg/dL 13 CREATININE mg/dL 0.61 CALCIUM mg/dL 8.5 MAGNESIUM mg/dL 1.8 Recent Labs Lab Units 06/08/19212106/08/19170906/04/19205006/03/19221606/02/19 2304 APTT sec 27 30 -- 84* 89* INR 3.0* 2.9* 2.0* 2.0* 1.9* Recent Labs Lab Units 06/09/19 0123 06/08/19 2255 06/08/19 1710 TROPONIN I ng/mL 4.36* 5.01* 6.34* TSH mcIUnit/mL 7.49* -- -- Cultures: Lab Results Component Value Date MICROBIOLOGY Final Report: Negative 05/29/2019 I personally reviewed the Telemetry images with the following findings: A fib /w RVR I personally reviewed the ECG images with the following findings: A fib with RVR; TWI V2-V6 TTE: May 2019: Normal LV chamber size, moderate systolic dysfunction, EF=38%. Marked LAE. Moderate MAC. Mildly dilated RV, moderate RV hypokinesis. Mild KAROL. Dilated inferior vena cava. Mild MR and TR. Moderate . Dec 2018: Mild to Moderate Aortic Stenosis LA is markedly dilated. Atrial fibrillation; Thickened and/or calcified mitral valve leaflets and mitral apparatus; Reduced global LV Myocardial longitudinal function and LV strain pattern. Mild Mitral Regurgitation. Mild Tricuspid Regurgitation with normal estimated Pulmonary Artery Systolic Pressure. LV cavity size is normal. Mild Global LV Systolic Dysfunction. No recent study available for comparison; Stress test: na Cardiac catheterization: na Assessment/Plan Ms. Pearce is a 79 y.o. female with a history of atrial fibrillation, HFrEF, HTN, recent PE presenting with SOB. #Atrial fibrillation /w RVR - manifesting as SOB, not palpitations; blood pressure stable; patient received 3x metoprolol 5mg IV, with rate from 140s -> 110s; possibly related to new PE, though therapeutic INR at 3; possibly due to poor medication compliance; possibly due to worsening CAD/dilation of atria causing greater structural inference with conduction system - metoprolol 25mg PO BID - heparin gtt for AC #NSTEMI - EKG with TWI in anterior leads, unlikely evolving intracoronary event and more likely demand ischemia in setting of uncontrolled a fib RVR; s/p ASA loading in ED; trop peak at 6.34; noted to trend down - ASA 81/rosuva 20 Qday - heparin gtt - +/- LHC #Acute on chronic HFrEF - symptoms of volume overload, likely related to poor filling of ventriclesin setting of a fib /w RVR - Lasix 20mg IV for volume overload - bb as above - losartan 50mg PO Qday - +/- TTE #PE - provoked PE in setting of poor mobilization following left hip injury; on warfarin at home; INR=3.0 this admission - AC as above - consider CT PE #T2DM - last A1c= 6.5; on metformin at home - LDSSI #Hypothyroidism - levothyroxine 25mcg Qday Ravi Otero MD Internal medicine resident 3:05 AM 06/09/19 Cosigned by Donaldo Poe MD at 06/09/2019 2:30 PM CDT Associated attestation - Donaldo Poe MD - 06/09/2019 2:30 PM CDT I have seen and examined the patient on 06/09/19. I agree with the findings and plan of care as documented in the resident's/fellow's note. documented in this encounter Consult Notes * Jenna Peña MD - 06/10/2019 2:46 PM CDTAssociated Order(s): CONSULT TO ORTHO-TRAUMA Orthopaedic Surgery Recon Consult June 10, 2019 2:48 PM Reason for Consult: draining wound HPI: 79 y.o. F w hx of PE admitted for worsening SOB; orthopaedics was consulted for wound evaluation and weightbearing recommendations. CT PE on admission showed bilateral PE in all primary pulmonary arteries and lung segments. On presentation, her troponin was elevated to 6.34 likely d/t NSTEMI, which downtrended most recently to 2.97. She is currently on a heparin gtt, and primary team is planning to transition to a DOAC at discharge. Chronic afib now rate controlled, and she will be discharged on amiodarone. She will also be scheduled for an outpatient catheterization with Cardiology. Her injuries include a comminuted distal femur fx 05/20 s/p a ground level fall. She underwent an I&D by Dr. Castro on 05/21 and L DFR 05/[address] Charles. She has been limited in her mobility d/t SOB and pain. She has new drainage from the medial traumatic wound, noted today. Chronic moderate kneepain, unchanged in recent days. Exam: Tolerates passive ROM 0-40. Has serous drainage from medial traumatic wound. Underlying bogginess. NVI distally. Lateral knee incision c/d/i with theodore. ESR/CRP pending. Pain is located around site of injury indicated above, present as long as mentioned above. It is worse with movement of the area, and better with rest. Past Medical History: Diagnosis Date ??? Atrial [...] Start Date End Date Taking? Authorizing Provider busPIRone (BUSPAR) 5 mg tablet Take 5 mg by mouth daily Take 5mg by mouth daily x 1 week, then increase to 5mg twice daily 06/08/19 Yes Historical Provider, DULoxetine DR (CYMBALTA) 60 mg capsule Take 60 mg by mouth daily Yes Historical Provider, insulin aspart U-100 (NovoLOG) 100 unit/mL (3 mL) insulin pen Administer subcutaneously per slidingscale Yes Historical Provider, ipratropium-albuteroL (DUO-NEB) 0.5-2.5 mg/3 mL nebulizer solution Take 3 mL by nebulization every 6 (six) hours as needed for wheezing or shortness of breath Yes Historical Provider, losartan (COZAAR) 100 mg tablet Take 100 mg by mouth daily Yes Historical Provider, metFORMIN XR (GLUCOPHAGE XR) 500 mg 24 hr tablet Take 1,000 mg by mouth daily with breakfast Yes Historical Provider, acetaminophen 500 mg capsule Take 2 capsules (1,000 mg total) by mouth every 6 (six) hours as needed for pain 06/05/19 07/05/19 Kae Adkins MD ALPRAZolam (XANAX) 0.25 mg tablet Take 0.25 mg by mouth 3 (three) times a day as needed Historical Provider, carvedilol (COREG) 25 mg tablet Take 1 tablet (25 mg total) by mouth 2 (two) times a day with meals12/27/18 12/27/19 Cathleen Garcia MD cholecalciferol, vitamin D3, (VITAMIN D3 ORAL) Take 400 Units by mouth daily Historical Provider, furosemide (LASIX) 20 mg tablet Take 1 tablet (20 mg total) by mouth 2 (two) times a day 06/05/19 07/05/19 Kae Adkins MD levothyroxine (SYNTHROID, LEVOTHROID) 25 mcg tablet Take 25 mcg by mouth daily 03/24/18 Historical Provider, lovastatin (MEVACOR) 10 mg tablet TAKE ONE TABLET BY MOUTH ONCE DAILY AT BEDTIME 12/28/18 Glenn Walker MD multivit,iron,minerals/lutein (CENTRUM SILVER ULTRA WOMEN'S ORAL) Take 1 tablet by mouth daily Historical Provider, oxyCODONE-acetaminophen (PERCOCET) 5-325 mg per tablet Take 1-2 tablets by mouth every 4 (four) hours as needed for pain 05/26/19 07/25/19 Suzie Wu MD Ozempic 0.25 mg or 0.5 mg(2 mg/1.5 mL) pen injector Inject 0.25 mg under the skin once a week 05/20/19 Historical Provider, pantoprazole DR (PROTONIX) 40 mg EC tablet Take 1 tablet (40 mg total) by mouth daily 06/06/19 07/06/19 Kae Adkins MD potassium chloride ER (KLOR-CON) 20 mEq CR tablet Take 1 tablet (20 mEq total) by mouth daily 12/27/18 12/27/19 Cathleen Garcia MD warfarin (COUMADIN) 2 mg tablet Take 1 tablet (2 mg total) by mouth daily 06/05/19 07/05/19 Kae Adkins MD zolpidem (AMBIEN) 5 mg tablet Take 5 mg by mouth nightly. at bedtime. 09/16/17 Historical Provider, Allergies Allergen Reactions ??? Prasanth Inhibitors Cough Reaction: COUGH, ??? Citalopram ??? Lisinopril Social History Tobacco Use ??? Smoking status: Never Smoker ??? Smokeless tobacco: Never Used Substance Use Topics ??? Alcohol use: Yes Comment: 1/mo Family History Problem Relation Age of Onset [...] Hx Review of Systems: Constitutional: Negative for chills and fever. HENT: Negative for acute hearing loss Eyes: Negative for pain and visual disturbance. Respiratory: Negative for cough and shortness of breath. Cardiovascular: Negative for chest pain and palpitations. Gastrointestinal: Negative for abdominal pain and vomiting. Genitourinary: Negative for dysuria and hematuria. Musculoskeletal: Pain in injured extremity Skin: Negative for acute rash. Neurological: Negative for seizures and syncope. Review of systems per HPI and otherwise all other systems are negative. Objective Vitals: 24hr Min/Max: Temp Min: 36.3 ??C (97.3 ??F) Max: 36.8 ??C (98.2 ??F) Pulse Min: 65 Max: 109 BP Min: 105/74 Max: 152/87 Resp Min: 20 Max: 23 SpO2 Min: 93 % Max: 97 % Most Recent: Vitals: 06/10/19 0351 06/10/19 0744 06/10/19 1118 06/10/19 1137 BP: 145/97 152/87 139/79 146/84 BP Location: Right arm Right arm Right arm Right arm Patient Position: Lying Lying Lying Sitting Pulse: 88 106 76 65 Resp: 22 Temp: 36.8 ??C (98.2 ??F) 36.3 ??C (97.3 ??F) 36.6 ??C (97.9 ??F) TempSrc: Oral Oral SpO2: 97% 94% 95% 93% Weight: Height: Physical Exam: Well-developed, well-nourished, in no acute distress. Alert and oriented ?? 3. Normal respirations, no dyspnea with speaking. LLE Tolerates passive ROM 0-40. Has serous drainage from medial traumatic wound. Underlying bogginess. NVI distally. Lateral knee incision c/d/i with theodore. Strength 5/5 TA/GS/EHL/FHL. SILT DP/SP/S/S nerve distributions. +DP/PT pulses. Toes WWP, BCR <2 seconds Lab/Radiology/Diagnostic Review: Laboratory review: Recent Results (from the past 24 hour(s)) aPTT Collection Time: 06/09/19 5:13 PM Result Value Ref Range aPTT 70 (H) 25 - 37 sec POCT glucose Collection Time: 06/09/19 5:24 PM Result Value Ref Range Glucose, POC 151 70 - 199 mg/dL POCT glucose Collection Time: 06/09/19 8:06 PM Result Value Ref Range Glucose, POC 206 (H) 70 - 199 mg/dL Basic metabolic panel Collection Time: 06/10/19 12:22 AM Result Value Ref Range Sodium 135 135 - 145 mmol/L Potassium, pl 3.4 3.3 - 4.9 mmol/L Chloride 101 97 - 110 mmol/L CO2 26 22 - 32 mmol/L Anion gap 8 2 - 15 mmol/L BUN 14 8 - 25 mg/dL Creatinine 0.55 (L) 0.60 - 1.10 mg/dL Glucose 141 70 - 199 mg/dL Calcium 8.7 8.5 - 10.3 mg/dL Magnesium Collection Time: 06/10/19 12:22 AM Result Value Ref Range Magnesium 1.8 1.4 - 2.5 mg/dL Phosphorus Collection Time: 06/10/19 12:22 AM Result Value Ref Range Phosphorus, pl 2.7 2.3 - 4.5 mg/dL CBC with auto differential Collection Time: 06/10/19 12:22 AM Result Value Ref Range WBC 6.9 3.8 - 9.9 K/cumm Hgb 8.2 (L) 11.9 - 15.5 g/dL Hct 27.3 (L) 35.6 - 45.5 % Plt 265 150 - 400 K/cumm MPV 10.3 9.1 - 12.3 fL RBC 2.83 (L) 3.90 - 5.20 M/cumm MCV 96.5 (H) 81.3 - 96.4 fL MCH 29.0 27.1 - 33.3 pg MCHC 30.0 (L) 32.3 - 35.7 g/dL RDW CV 16.5 (H) 11.1 - 14.9 % RDW SD 58.0 (H) 35.7 - 48.1 fL NRBC abs 0.02 (H) 0.00 - 0.01 K/cumm Protime-INR Collection Time: 06/10/19 12:22 AM Result Value Ref Range PT 27.5 (H) 8.6 - 13.0 sec INR 2.5 (H) 0.8 - 1.2 aPTT Collection Time: 06/10/19 12:22 AM Result Value Ref Range aPTT 67 (H) 25 - 37 sec Differential, auto Collection Time: 06/10/19 12:22 AM Result Value Ref Range Neutrophil abs 4.6 1.7 - 6.5 K/cumm Imm gran abs 0.0 0.0 - 0.1 K/cumm Lymphocyte abs 1.6 0.8 - 3.3 K/cumm Monocyte abs 0.6 0.2 - 0.8 K/cumm Eosinophil abs 0.1 0.0 - 0.5 K/cumm Basophil abs 0.0 0.0 - 0.1 K/cumm Neutrophil pct 66.3 % Imm gran pct 0.4 % Lymphocyte pct 22.5 % Monocyte pct 9.0 % Eosinophil pct 1.2 % Basophil pct 0.6 % Ferritin Collection Time: 06/10/19 12:22 AM Result Value Ref Range Ferritin 132 15 - 150 ng/mL Vitamin B12 Collection Time: 06/10/19 12:22 AM Result Value Ref Range Cyanocobalamin (Vit B12) 1,250 230 - 1,250 pg/mL Iron profile w/ IBC Collection Time: 06/10/19 12:22 AM Result Value Ref Range Iron 33 (L) 35 - 145 mcg/dL TIBC 378 250 - 400 mcg/dL Transferrin saturation 9 (L) 20 - 50 % POCT glucose Collection Time: 06/10/19 7:46 AM Result Value Ref Range Glucose, POC 156 70 - 199 mg/dL Folate Collection Time: 06/10/19 11:12 AM Result Value Ref Range Folic acid 10.3 >=5.0 ng/mL POCT glucose Collection Time: 06/10/19 11:59 AM Result Value Ref Range Glucose, POC 146 70 - 199 mg/dL Radiology Review: I have reviewed the imaging with the following findings: XR L knee with unchanged implant alignment Clinical Images: None Assessment/Plan Prema Pearce is a 79 y.o. female who presents with L knee wound drainage. Drainage appears serous in quality. Plan was discussed with attending physician - patient has a traumatic wound that disrupted the quadriceps mechanism, and she is likely draining some joint fluid. We will treat conservatively with 3 days of incisional wound vac, and re-evaluate the wound at that point. PLAN: 1. Admitted to Cardiology 2. Plan: nonoperative management 3. WBAT LLE, can use walker or crutches as tolerated. 4. PT/OT/out of bed when able, encourage ambulation 5. Diet per primary 6. Pain control 7. Maintain wound vac; please chart output q12 hours and call if wound vac loses suction This patient was evaluated within 30 minutes of consultation. Jenna Peña MD Orthopaedic Surgery PGY-9 For overnight questions, please contact: [phone] (Night Resident) [phone] (Day / Consult Resident) Cosigned by Kaveh Charles MD at 06/16/2019 2:54 PM CDT documented in this encounter Nursing Notes * Negra Lei RN - 06/13/2019 2:20 PM CDT Report given to EMS, patient left via transport. Nothing further. * Negra Lei RN - 06/13/2019 1:32 PM CDT Report given to ARMANI Rausch at [place]. Patient to be picked up per EMS. PIV removed, educatedpatient on discharge. Packed up patient belong for transport. Nothing further. documented in this encounter ED Notes * Beau Eldridge MD - 06/08/2019 4:55 PM CDT HPI Chief Complaint Patient presents with ??? Shortness of Breath ??? Dizziness HPI 79-year-old female with extensive medical history including AFib, recent development of congestive heart failure in the context of a provoked pulmonary embolism after he left knee surgery 2 weeks agowho is here with generalized weakness, dyspnea on exertion, decreased functional capacity, chest pressure. Symptoms all began 2 weeks ago after knee surgery when patient developed a PE that subsequently led her developed heart failure. Most recent echocardiogram showed EF 38% which is lower than her EF prior to the PE. Patient has been in rehab for last week and a half and during that time feels as though her dyspnea, generalized weakness and chest pain and gotten worse rather than better. She s poke with her video presentation operator today who recommend she come to the hospital for evaluation. Currently she is complaining of generalized weakness, mild shortness of breath and a feeling of an elephant sitting on her chest. She denies specific sharp chest pain in the chest pressure does not seem to radiate. She has not noted any positional or exertional component to her chest pain. She alsodenies orthopnea. She does feels though her lower extremities are more swollen than usual. Review of systems otherwise negative, no recent fevers or chills, headache, auditory visual disturbances, neck pain. She denies upper respiratory symptoms. She denies cough. She has been tolerating p.o. without nausea vomiting abdominal pain. She has been voiding stooling normally. She denies numbness or tingling. She denies arthralgias, myalgias. She denies any changes in her surgical site. Social history negative for alcohol, cigarettes, illicit drug use, recent travel or sick contacts Family history significant for hypertension Patient History Patient Active Problem List Diagnosis Date Noted ??? Acute pulmonary embolism with acute cor pulmonale (CMS/HCC) 05/31/2019 ??? Hypothyroidism, unspecified 05/31/2019 ??? Obstructive sleep apnea 05/31/2019 ??? Diabetes mellitus type II, controlled (CMS/[facility]) 05/31/2019 ??? Hypertension, essential 05/31/2019 ??? Left femoral fracture 05/31/2019 ??? Atrial fibrillation with RVR (CMS/HCC) 05/30/2019 ??? Open fracture of left distal femur (CMS/HCC) 05/21/2019 ??? Closed displaced comminuted fracture of shaft of left femur (CMS/HCC) 05/21/2019 ??? Atrial fibrillation (CMS/HCC) [I48.91] 08/18/2017 ??? Obesity with body mass index 30 or greater 10/11/2015 Class: Chronic ??? Snoring 02/16/2014 Class: Chronic ??? Carotid bruit 12/27/2010 Class: Chronic Past Medical History: Diagnosis Date ??? Atrial [...] file Review of Systems Review of Systems All other systems reviewed and are negative. Physical Exam ED Triage Vitals Temp Pulse Resp BP SpO2 06/08/19 1602 06/08/19 1602 06/08/19 1602 06/08/19 1602 06/08/19 1602 37 ??C (98.6 ??F) (!) 128 21 (!) 140/108 95 % Temp src Heart Rate Source Patient Position BP Location FiO2 (%) 06/08/19 1602 06/09/19 0114 06/09/19 0114 06/09/19 0114 -- Oral Monitor Lying Right arm Physical Exam General: Moderate distress, able to speak in 3 or 4 word sentences. Hypertensive, tachycardic with irregular heart rate. Oriented x4 Head and neck: normocephalic, atraumatic, no C spine TTP or decreased ROM Eyes: EOMI, PERRL Oropharynx: no pharyngeal erythema, tonsillar exudates Cardiac: Irregular rate and rhythm, tachycardic. Peers to be AFib with RVR on monitor. Warm and well perfused extremities. 2+ pitting edema to bilateral lower extremities, slightly worse on the left.Hypertensive. Pulmonary: Bilateral basilar crackles, no wheezing noted. Able to speak in 3-4 word sentences. Satting above 95% on home 2 L of oxygen GI: Soft, non-tender, non-distended. No rebound tenderness or voluntary guarding. Normal bowel sounds. No palpable organomegaly. Musculoskeletal: No obvious deformities or TTP Skin: No rashes, lesions, lacerations noted. No bruising Neurological: CN 2-12 intact. Normal motor function in bilateral UE and bilateral LE. Sensation grossly intact. Psychiatric: appropriate mood and affect MDM MDM 79-year-old female with extensive medical history as described above presents with worsening functional capacity, chest pain, shortness of breath, generalized weakness. All the symptoms began after she developed heart failure in the context of a provoked pulmonary embolism after knee surgery. Of note patient was discharged on heparin and warfarin, recently stopped heparin. Currently patient is in AFib with RVR, appears to be in mild respiratory distress and volume overloaded. AFib with RVR possibly due to CHF exacerbation verses worsening clot burden, electrolyte abnormality, cardiomyopathy. Low concern for infection. Patient's dyspnea likely due to a combination of PE, AFib with RVR, congestive heart failure. ACS also possible given patient's chest pain. Will plan for broad workup including troponin, BNP, BMP, CBC, electrolytes. Will obtain chest x-ray, EKG. Will plan for tentative IV rate control with metoprolol and evaluate response. If positive results will continue aggressive rate control however there is mild concerned that patient is relying on tachycardia to maintain her blood pressure. Regardless of workup patient will require admission, likely safe for the floor and would most likely benefit from being on medicine firm. Attending Summary of Care ED Course as of Jun 09 234 Time: 06/07 1644 Comment: Attending summary: 79 year old female with h/o a. Fib 2 weeks s/p knee surgery c/b DVT/PE resulting in cardiac decompensation. Has been on oxygen. Presents with c/o chest pain and dyspnea. Requiring oxygen. In a. Fib RVR. Denies cough or fever. Suspect CHF exacerbation secondary to PE vs. Secondary to a. Fib RVR, probably a combination of both. Increased PE burden moderate probability. Pna low probability. Plan for cardiac work-up, CXR, rate control. By: Pascale Santos MD Time: 06/08 1915 Comment: TRANSITION OF CARE: I, Long Jacobsen MD, am taking signout from Dr. Eldridge (Resident) under supervision of Dr. Santos (Attending). I have reviewed all pertinent vital signs, allergies, and history available in the chart. Summary: 79 y.o. female atrial fib on sotalol on AC warfarin, h/o DVT/PE after knee surgery 2.5 weeks ago, had afib and CHF/hemodynamic collapse 2/2 to thromboembolic disease. Completed AC in hospital, off heparin bridged to warfarin, FTT now at rehab with palpitations, SOB, chest pain, all symptoms getting worse. Afib with RVR here, 2L O2 requirement (new). Therapeutic on INR, got rate control with metoprolol Pending: nothing Dispo: admit By: Dwayne Jacobsen MD Time: 06/07 1937 Comment: Troponin elevated 6.34. No significant EKG changes, will continue to trend. Will dose aspirin. Patient responded to metoprolol, will re-dose. BNP elevated with pulmonary edema on chest x-ray, will dose IV Lasix. Given these constellation of symptoms with the patient likely appropriate for Cardiology firm for congestive heart failure in AFib with RVR. By: Beau Eldridge MD Time: 06/07 1945 Comment: Patient will be admitted to [facility] for CHF exacerbation and AFib with RVR. Dosing Lasix, metoprolol and aspirin now By: Beau Eldridge MD Time: 06/07 2236 Comment: Patient continues to be in atrial fibrillation with RVR, will give additional 5 mg of metoprolol. Heparin drip started, will plan for repeat troponin, signed out to Cardiology [facility]. By: Dwayne Jacobsen MD Time: 06/08 2311 Comment: ATTENDING TRANSITION OF CARE I, Wilfred Gonzalez MD, am taking signout from Tom (Attending). I have reviewed all pertinentvital signs allergies, and history available in the chart. Summary: 79 y.o. female has had o2 requirement since recent surgery. Had DVT and PE - hx of afib, previous cardioversion. Pending: in patient bed Dispo: admission By: Wilfred Gonzalez MD Time: 06/08 2327 Comment: HR 108 after repeat push of metoprolol, stable for transfer to the floor, discussed with cards team they are okay with taking patient on the floor at this time By: Dwayne Jacobsen MD Atrial fibrillation, unspecified type (CMS/HCC) Acute on chronic congestive heart failure, unspecified heart failure type (CMS/HCC) Beau Eldridge MD Resident 06/08/192037 Beau Eldridge MD Resident 06/10/19235 Cosigned by Pascale Santos MD at 06/11/2019 4:50 PM CDT Associated attestation - Pascale Santos MD - 06/11/2019 4:50 PM CDT I have seen and examined the patient on 06/08/2019 . I agree with the findings and plan of care as documented in the resident's note. documented in this encounter Miscellaneous Notes * Plan of Care - Negra Lei RN - 06/13/2019 1:24 PM CDT Goals: Clinical Goals for the Shift: Patient VSS, monitor labs, I&O, pain management Summary: Patient VSS, pain managed, d/c to facility via EMS. * Plan of Care - Shira Noland RN - 06/13/2019 11:56 AM CDT Discussed d/c plans with social work, and charge nurse. Patient admitted from SNF with c/o SOB, PE bilateral all lung segments. Patient with prevena dressing, PT/OT to see. Support: Transportation: To be arranged by social work Problem: Patient to return to safe environment with support from family Goal: dairy farm manager to follow for d/c planning and referrals as needed. F/U Appointment: To be made after rehab Referral: Social work following for d/c planning to return to facility ADD: 06/12 dairy farm manager will continue to follow and assist as needed. * Plan of Care - Geovanna Ramirez OT - 06/13/2019 10:56 AM CDT Problem: Grooming Goal: STG - Patient will complete grooming Description: Task at sink level for 5 min. C/ spvn and <2 seated rest breaks Outcome: Progressing Flowsheets (Taken 06/13/2019 1056) Assist Level: CGA Problem: Toileting Goal: STG - Patient will complete toileting tasks with Description: C/ min A Outcome: Progressing Flowsheets (Taken 06/13/2019 1056) Assist Level: MIN Problem: Transfers Goal: STG - Patient will perform toilet transfer Description: To standard toilet c/ min A Outcome: Progressing Flowsheets (Taken 06/13/2019 1056) Assist Level: MIN * [facility] Note - Yoly Cook LCSW - 06/13/2019 10:43 AM CDT Images from the original note were not included. Patient Information: Comprehensive Nursing Documentation Attending Provider: Ned Urbina MD Allergies: Prasanth Inhibitors, Citalopram, Lisinopril Isolation: None Infection: None Code Status: FULL Ht: 157.5 cm (5' 2 ) Wt: 97.1 kg (214 lb 1.6 oz) Admission Cmt: None Principal Problem: Pulmonary embolism (CMS/HCC) [I26.99] Elopement Risk Date/Time Elopement Risk User 06/09/19 0100 No risk GG Intake/Output 06/10/19 0700 - 06/11/19 0659 06/11/19 0700 - 06/12/19 0659 06/12/19 0700 - 06/13/19 0659 06/13/19 0700 - 06/14/19 0659 Total Total 1121-7975 5972-8829 5738-3162 Total 9345-1139 8131-9831 1486-6386 Total Intake (ml) 1291.9 280 -- 220 60 280 -- -- -- -- Output (ml) 1775 1700 550 198 916 8882 400 -- -- 400 Net (ml) -483.1 -1420 -550 -530 -240 -1320 -400 -- -- -400 Last Weight 99.6 kg (219 lb 9.6 oz) 98.7 kg (217 lb 9.6 oz) -- -- 97.1 kg (214 lb 1.6 oz) -- -- -- -- -- Patient Lines/Drains/Airways Status Active Airway / Central venous catheter / Drain / Epidural cathether / Intraosseous line / Peripherally inserted central catheter / Peripheral intravenous line / Arterial line Name: Placement date: Placement time: Site: Days: Peripheral IV 06/08/19 18 G Left Antecubital 06/08/19 1625 Antecubital 4 Peripheral IV 06/08/19 20 G Right Hand 06/08/19 2258 Hand 4 Peripheral IV 06/12/19 22 G Right Antecubital 06/12/19 2114 Antecubital less than 1 Patient Lines/Drains/Airways Status Active Wound / Pressure ulcer / Roy / Negative Pressure Wound Negative Pressure Wound Therapy Left Knee Placement date: 06/10/19 Site: -- Placement time: 1910 Days: 2 Wound Type: Surgical incision Location Orientation: Left Location: Knee Assessments 06/12/19191806/12/1972906/11/191909 Site Assessment MICHAEL MICHAEL MICHAEL Taya-wound Assessment MICHAEL MICHAEL MICHAEL Unit Type Ulta vac -- Ulta vac Dressing/Foam Type Black foam -- Black foam Cycle Continuous -- Continuous Dressing Status Clean/Dry/Intact;Reinforced -- Clean/Dry/Intact Dressing Change Due 06/13/19 -- 06/13/19 Mejia Fall Risk Most Recent Value Auto Low/High - if selected proceed to interventions High risk-visit due to a fall or hx of > 1 fall in past 3 months ............filed at 06/10/2019 0744 History of Falling 25 ............filed at 06/13/2019 0715 Secondary Diagnosis 15 ............filed at 06/13/2019 0715 Ambulatory Aids 0 ............filed at 06/13/2019 0715 Intravenous Therapy/Heparin/Saline Lock 20 ............filed at 06/13/2019 0715 Gait/Transferring 0 ............filed at 06/13/2019 0715 Mental Status 0 ............filed at 06/13/2019 0715 Mejia Fall Risk Score 60 ............filed at 06/13/2019 0715 Vital Signs 06/11 0700 - 06/12 0659 06/12 07 - 06/12 1044 Most Recent Temp (??C) 36.4 - 37 36.6 36.6 (97.8) Pulse 68 - 88 76 - 107 78 Resp 18 - 20 20 20 SpO2 (%) 93 - 98 95 - 98 98 BP 130/74 - 154/96 143/97 - 175/114 143/97 MAP (mmHg) 89 - 105 115 - 140 115 Default Flowsheet Data (most recent) Endurance Tests No documentation. Default Flowsheet Data (most recent) Balance Tests - 06/10/19 1147 Tinetti Sitting Balance 1 Arises 0 Attempts to Arise 0 Immediate Standing Balance (First 5 Seconds) 0 Standing Balance 0 Nudged 0 Eyes Closed 0 Turned 360 Degrees: Steadiness 0 Turned 360 Degrees: Continuity of Steps 0 Sitting Down 0 Balance Score 1 Nursing Nutrition Feeding Level of Assistance 06/12 714 Able to feed self Nursing Mobility Activity 06/12 941 Chair 06/12 08 Chair 06/12 714 Resting in bed 03/30 0616 Resting in bed;Turn 06/12 0434 Resting in bed;Turn 06/12 0229 Resting in bed;Turn 06/12 0030 Resting in bed;Turn 06/11 2246 Resting in bed;Turn 06/11 2154 Resting in bed;Turn 06/11 202 Resting in bed;Turn 06/11 191 Resting in bed;Turn 06/11 1811 Chair 06/11 1730 Chair 06/11 1630 Chair 06/11 1530 Chair 06/11 1430 Chair 06/11 1330 Chair 06/11 1230 Chair 06/11 1130 Chair 06/11 1030 Chair 06/11 0930 Chair 06/11 0830 Chair 06/11 0730 Resting in bed 06/11 0619 Resting in bed;Turn 06/11 0425 Resting in bed;Turn 06/11 0230 Resting in bed;Turn 06/11 003 Resting in bed;Turn 06/10 223 Resting in bed;Turn 06/10 213 Resting in bed;Turn 06/10 2030 Resting in bed;Turn 06/10 1906 Resting in bed;Turn 06/10 1812 Chair 06/10 1730 Chair 06/10 1630 Chair 06/10 1530 Chair 06/10 1430 Chair 06/10 1330 Chair 06/10 1230 Chair 06/10 1130 Chair 06/10 1030 Chair 06/10 0930 Chair 06/10 0830 Chair 06/10 0730 Resting in bed 06/10 0512 Sleeping 06/10 0318 Sleeping 06/10 0128 Sleeping 06/09 2305 Resting in bed 06/09 2208 Resting in bed 06/09 2136 Resting in bed 06/09 2011 Resting in bed 06/09 1900 Resting in bed 06/09 1800 Resting in bed 06/09 1700 Resting in bed 06/09 1600 Resting in bed 06/09 1500 Chair 06/09 1400 Chair 06/09 1300 Chair 06/09 1200 Chair 06/09 1110 Chair Level of Assistance 06/12 0715 Moderate assist, patient does 50-74% 06/12 0616 Moderate assist, patient does 50-74% 06/12 0434 Moderate assist, patient does 50-74% 06/12 0229 Moderate assist, patient does 50-74% 06/12 0030 Moderate assist, patient does 50-74% 06/11 2246 Moderate assist, patient does 50-74% 06/11 2154 Moderate assist, patient does 50-74% 06/11 2028 Moderate assist, patient does 50-74% 06/11 1919 Moderate assist, patient does 50-74% 06/11 0619 Moderate assist, patient does 50-74% 06/11 0425 Moderate assist, patient does 50-74% 06/11 0230 Moderate assist, patient does 50-74% 06/11 0037 Moderate assist, patient does 50-74% 06/10 2230 Moderate assist, patient does 50-74% 06/10 2137 Moderate assist, patient does 50-74% 06/10 2030 Moderate assist, patient does 50-74% 06/10 1906 Moderate assist, patient does 50-74% 06/09 1900 Moderate assist, patient does 50-74% Ambulation Response 06/11 1918 Tolerated well 06/10 190 Tolerated well Repositioned 06/12 0715 Turns self 06/12 0616 Turns self 06/12 0434 Turns self 06/12 0229 Turns self 06/12 0030 Turns self 06/11 2246 Turns self 06/11 2154 Turns self 06/11 2028 Turns self 06/11 1919 Turns self 06/11 0830 Turns self 06/11 0730 Turns self 06/11 0619 Turns self 06/11 0425 Turns self 06/11 0230 Turns self 06/11 0037 Turns self 06/10 2230 Turns self 06/10 2137 Turns self 06/10 2030 Turns self 06/10 1906 Turns self 06/10 0512 Turns self;Semi Casanova's 06/10 0318 Turns self;Semi Casanova's 06/10 0128 Turns self;Semi Casanova's 06/09 2305 Turns self;Semi Casanova's 06/09 2208 Turns self;Semi Casanova's 06/09 2136 Turns self;Semi Casanova's 06/09 2011 Turns self;Semi Casanova's 06/09 1900 Turns self;Semi Casanova's 06/09 1800 Turns self 06/09 1700 Turns self 06/09 1600 Turns self 06/09 1500 Turns self 06/09 1400 Turns self 06/09 1300 Turns self 06/09 1200 Turns self 06/09 1110 Turns self Positioning Frequency 06/12 0715 Able to turn self 06/12 0616 Able to turn self 06/12 0434 Able to turn self 06/12 0229 Able to turn self 06/12 0030 Able to turn self 06/11 2246 Able to turn self 06/11 2154 Able to turn self 06/11 2028 Able to turn self 06/11 1919 Able to turn self 06/11 1811 Able to turn self 06/11 1730 Able to turn self 06/11 0830 Able to turn self 06/11 0730 Able to turn self 06/11 0619 Able to turn self 06/11 0425 Able to turn self 06/11 0230 Able to turn self 06/11 0037 Able to turn self 06/10 2230 Able to turn self 06/10 2137 Able to turn self 06/10 2030 Able to turn self 06/10 1906 Able to turn self 06/10 0730 Able to turn self 06/10 0512 Able to turn self 06/10 0318 Able to turn self 06/10 0128 Able to turn self 06/09 2305 Able to turn self 06/09 2208 Able to turn self 06/09 2136 Able to turn self 06/09 2011 Able to turn self 06/09 1900 Able to turn self 06/09 1800 Able to turn self 06/09 1700 Able to turn self 06/09 1600 Able to turn self 06/09 1500 Able to turn self 06/09 1400 Able to turn self 06/09 1300 Able to turn self 06/09 1200 Able to turn self 06/09 1110 Able to turn self Head of Bed Elevated 06/12 0715 Self regulated 06/12 0616 Self regulated 06/12 0434 Self regulated 06/12 0229 Self regulated 06/12 0030 Self regulated 06/11 2246 Self regulated 06/11 2154 Self regulated 06/11 2028 Self regulated 06/11 1919 Self regulated 06/11 1811 Self regulated 06/11 1730 Self regulated 06/11 0830 Self regulated 06/11 0730 Self regulated 06/11 0619 Self regulated 06/11 0425 Self regulated 06/11 0230 Self regulated 06/11 0037 Self regulated 06/10 2230 Self regulated 06/10 2137 Self regulated 06/10 2030 Self regulated 06/10 1906 Self regulated 06/10 0730 Self regulated 06/10 0512 Self regulated 06/10 0318 Self regulated 06/10 0128 Self regulated 06/09 2305 Self regulated 03/27 2208 Self regulated 06/10 2135 Self regulated 06/09 2010 Self regulated 06/09 1900 Self regulated 06/09 1800 Self regulated 06/09 1700 Self regulated 06/09 1600 Self regulated 06/09 1500 Self regulated 06/09 1400 Self regulated 06/09 1300 Self regulated 06/09 1200 Self regulated 06/09 1110 Self regulated Heels/Feet 06/12 0715 Heels elevated off bed 06/12 0616 Heels elevated off bed 06/12 0434 Heels elevated off bed 06/12 0229 Heels elevated off bed 06/12 0030 Heels elevated off bed 06/11 2246 Heels elevated off bed 06/11 2154 Heels elevated off bed 06/11 2028 Heels elevated off bed 06/11 1919 Heels elevated off bed 06/11 1530 Heels elevated off bed 06/11 0619 Heels elevated off bed 06/11 0425 Heels elevated off bed 06/11 0230 Heels elevated off bed 06/11 0037 Heels elevated off bed 06/10 2230 Heels elevated off bed 06/10 2137 Heels elevated off bed 06/10 2030 Heels elevated off bed 06/10 1906 Heels elevated off bed 06/10 1430 Heels elevated off bed 06/10 1330 Heels elevated off bed 06/10 1130 Heels elevated off bed 06/10 1030 Heels elevated off bed 06/10 0930 Heels elevated off bed 06/10 0830 Heels elevated off bed 06/10 0512 Foot of bed elevated 06/10 0318 Foot of bed elevated 06/10 0128 Foot of bed elevated 06/09 2305 Foot of bed elevated 06/09 2208 Foot of bed elevated 06/09 2136 Foot of bed elevated 06/09 2010 Foot of bed elevated 06/09 1900 Foot of bed elevated Range of Motion 06/12 0715 Active;All extremities 06/11 1919 Active;All extremities 06/11 181 Active 06/11 1730 Active 06/11 08 Active 06/11 07 Active 06/10 190 Active;All extremities 06/10 07 Active 06/10 0512 Active 06/10 0318 Active 06/10 0128 Active 06/09 2305 Active 06/10 2207 Active 06/10 2135 Active 06/09 2010 Active 06/09 190 Active;All extremities , OT Eval and Treat Last 72 Hours OT Evaluation Row Name 06/10/19 1108 06/09/19 0756 Chart Reviewed Yes -SB -- Session Type Evaluation -SB -- OT Received On 06/10/19 -SB -- Safe Environment Arm Band Checked;Patient found in Supine -SB -- Subjective Agreeable to Therapy -SB -- Rehab Only - Missed Reasons - All Disciplines -- -- COVID PRECAUTIONS -SB Family/Caregiver Present No -SB -- Occupational Therapy-Patient Goal none stated -SB -- Precautions AYAD;Fall risk;Bleeding -SB -- Weight Bearing Restrictions Yes -SB -- RUE Weight Bearing WBAT -SB -- LUE Weight Bearing WBAT -SB -- RLE Weight Bearing WBAT -SB -- LLE Weight Bearing WBAT -SB -- Precaution Handout Issued No -SB -- Precaution Comments verbally informed pt. -SB -- Type of Home House -SB -- Home Layout One level -SB -- Home Access Stairs to enter without rails -SB -- Entrance Stairs-Rails None -SB -- Entrance Stairs-Number of Steps 1+1 -SB -- Bathroom Shower/Tub Walk-in shower with threshold -SB -- Bathroom Toilet Standard -SB -- Bathroom Equipment Grab bars in shower/tub;Built-in shower seat;Tub transfer bench;Commode -SB -- Home Mobility Equipment Wheeled walker -SB -- Additional Comments per pt. 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 -SB -- Level of [place] Independent with ADLs;Independent functional transfers;Independent with ambulation;Independent with homemaking with ambulation -SB -- Lives With Spouse 06/10 (min) assist -SB -- Receives Help From Neighbor;Family inspector timers assist available -SB -- Driving Yes -SB -- Mode of Transportation Driven by self traveling in an RV over the last 2months - SB -- ADL Assistance Independent -SB -- Instrumental ADL (IADL) Assistance Independent -SB -- Vocational/Occupation Retired -SB -- Leisure Hobbies-yes (Comment) travels in an RV with her -SB -- Fall within the last 6 months Yes -SB -- Fall within the last 6 months comment per pt. report 1 fall in last 6mo 2/2 missing a step in her home resulting in a L distal femur fx and L hip fx -SB -- Prior Function Comments per pt. 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 -SB -- ADLS (WDL) X -SB -- Grooming: Where assessed Chair -SB -- Grooming: Level of assistance Minimum Assist mod A standing balance, setup task -SB -- Grooming: Assistance with Teeth care;Standing with assistive device;Safety -SB -- LE Dressing: Where assessed Sitting;Chair -SB -- LE Dressing: Level of assistance Maximum Assist -SB -- LE Dressing: Assistance with Safety;Pull up over hips;Don/doff R sock;Don/doff L sock;Thread RLE into pants;Thread LLE into pants;Thread RLE into underwear;Thread LLE into underwear;Increased time tocomplete;Verbal cueing;Supervision/safety -SB -- Toileting: Where assessed Chair simulated -SB -- Toileting: Level of assistance Maximum Assist -SB -- Toileting: Assistance with Clothing management up;Clothing management down;Anterior;Perineal hygiene;Posterior;Increased time to complete;Bedside commode;Other (Comment) balance -SB -- Toilet Transfers Comments simulated to BSC - see t/f notes below -SB -- Pain Assessment No/denies pain -SB -- Activity Tolerance Comments gabby: hard; ADAMS/SOB -SB -- Current Vision Wears glasses only for reading -SB -- Cognition Comments SBT=IMP; additional time required for complex thought processes; pt. pleasant and demonstrate fair insight -SB -- Overall Cognitive Status Impaired -SB -- Arousal/Alertness Alert -SB -- Attention Span Appears intact -SB -- Memory Decreased short term memory -SB -- Current communication Appears Intact -SB -- Orientation Oriented X4 (person, place, time, situation) -SB -- Following Commands Follows all commands and directions without difficulty -SB -- Safety Judgment Decreased awareness of need for assistance -SB -- Awareness of Errors Decreased awareness of errors;Assistance required to correct errors made;Assistance required to identify errors made -SB -- Insight Decreased awareness of deficits -SB -- Problem Solving Assistance required to implement solutions;Assistance required to generate solutions;Assistance required to identify errors made -SB -- Compliance/Behavior Easy to engage -SB -- Perseveration Not present -SB -- Numbness/Tingling No -SB -- Motor Planning Appears intact -SB -- Movements Are Fluid and Coordinated 1 -SB -- Fine Motor WFL -SB -- Serial Opposition WFL -SB -- Hand Preference Right -SB -- Coordination Functional -SB -- Gross Grasp Functional -SB -- RUE Reach WFL -SB -- LUE Reach WFL -SB -- RUE Grasp Gross grasp 4/5 -SB -- LUE Grasp Gross grasp 4/5 -SB -- Balance Yes -SB -- Static Sitting-Balance Support Feet supported;No upper extremity supported -SB -- Static Sitting-Sitting Surface Bed -SB -- Static Sitting-Level of Assistance Close supervision -SB -- Static Sitting-Comment/# of Minutes pt. tolerated sitting EOB ~5 min., c/o of discomfort in RLE even while supported -SB -- Static Standing-Balance Support Bilateral upper extremity supported -SB -- Static Standing-Standing Surface Floor -SB -- Static Standing-Level of Assistance Moderate assistance -SB -- Static Standing-Comment/# of Minutes pt. mod A to maintain standing ~30 seconds -SB -- Bed Mobility Yes -SB -- Bed Mobility From 1 Supine -SB -- Bed Mobility Type 1 To -SB -- Bed Mobility to 1 Edge of bed -SB -- Level of Assistance 1 Standby Assist -SB -- Bed Mobility Comments 1 HOB elevated, use of bed rails and BUE for trunk elevation, additional timerequired -SB -- Transfer Yes -SB -- Transfer From 1 Bed;Sit -SB -- Transfer Type 1 To and from -SB -- Transfer to 1 Stand -SB -- Technique 1 Sit to stand;Stand to sit -SB -- Transfer Device 1 Hand held assist -SB -- Transfer Level of Assistance 1 Minimum Assist;Moderate verbal cues -SB -- Trials/Comments 1 pt. min A from elevated bed surface and mod vcues -SB -- Transfer From 2 Stand -SB -- Transfer Type 2 To -SB -- Transfer to 2 Sit;Chair with arms -SB -- Technique 2 Stand pivot;Lateral -SB -- Transfer Device 2 Hand held assist -SB -- Transfer Level of Assistance 2 Moderate Assist;Moderate verbal cues -SB -- Trials/Comments 2 pt. mod a for lateral side step t/f to recliner, mod vcues for body mechanics andsafety, encouragement for pt. not to hold her breath pt. very anxious during t/f, FOF -SB -- RUE Assessment WFL MMT: 06/18 -SB -- LUE Assessment WFL MMT: 06/18 -SB -- Comments pt. tolerated OT evaluation well, demonstrating deficits in balance, endurance, t/f, decreased ADL IND and functional mobility this date. Pt. requiring several rest breaks 2/2 SOB -SB -- Problem List Decreased cognition;Decreased endurance;Decreased balance;Decreased functional mobility;Decreased ADL independence;Decreased IADL independence -SB -- Barriers to Discharge Current Mobility Status;Decreased caregiver support;Cognition;Decreased safety awareness;Home environment challenged -SB -- Plan Plan of care initiated;If this is the last note, consider this the discharge summary -SB -- OT Recommendation Inpatient Rehab Facility -SB -- OT Recommendation/Plan Comments pt. educated on OT role, POC and d/c rec.'s at this time. -SB -- Treatment/Interventions Equipment eval/education;Functional activity;Balance Training;Functional transfer training;Parent/caregiver training and education;Therapeutic activity -SB -- OT - Next Appointment 06/13/19 -SB -- OT Evaluation Complete Yes -SB -- User Montgomery (r) = Recorded By, (t) = Taken By, (c) = Cosigned By Initials Name Effective Dates SB Yarelis Keys OT 02/14/19 - OT Treatment No documentation. OT Notes (Notes from 06/11/19 through 06/13/19) No notes of this type exist for this encounter. , PT Eval and Treat Last 72 Hours PT Evaluation Row Name 06/13/19 0900 06/11/19 0742 06/10/19 0715 06/09/19 0818 Chart Reviewed -- Yes -CR -- -- Session Type -- Evaluation -CR -- -- Safe Environment -- Arm Band Checked;Call Light within Reach;Notified RN;Session Completed Bedside;Patient found in Supine;Overbed Table within Reach -CR -- -- Subjective -- Agreeable to Therapy -CR -- -- PT Missed Visit Reason Other (comment) INR 4.5 -TR -- Change in medical status elevated trops 2.97 -FM MD/RN Hold;Other (comment) pending further results (COVID 19) -FM Family/Caregiver Present -- No -CR -- -- Physical Therapy-Patient Goal -- to do more with less SOB -CR -- -- RUE Weight Bearing -- WBAT -CR -- -- LUE Weight Bearing -- WBAT -CR -- -- RLE Weight Bearing -- WBAT -CR -- -- LLE Weight Bearing -- WBAT -CR -- -- Precaution Comments -- reviewed with patient -CR -- -- Type of Home -- House -CR -- -- Home Layout -- One level -CR -- -- Home Access -- Stairs to enter without rails -CR -- -- Entrance Stairs-Rails -- None -CR -- -- Entrance Stairs-Number of Steps -- 1+1 -CR -- -- Home Mobility Equipment -- Wheeled walker -CR -- -- Level of [place] -- Independent functional transfers;Independent with ADLs;Independent with ambulation -CR -- -- Lives With -- Spouse inspector timers assistance -CR -- -- Receives Help From -- Family -CR -- -- Fall within the last 6 months -- Yes -CR -- -- Fall within the last 6 months comment -- 1 fall, missing step in home, resulting in femur fracture -CR -- -- Prior Function Comments -- Pt. reports independence prior to fall this month. Since discharge from initial hospitalization patient was at SNF for rehab but unable to tolerate much activity, wasn't walking because of SOB -CR -- -- Activity Tolerance Comments -- gabby hard -CR -- -- Pain Assessment -- 0-10 -CR -- -- Pain Score -- 3 -CR -- -- Pain Location -- Leg -CR -- -- Pain Orientation -- Left -CR -- -- Pain Interventions -- Repositioned -CR -- -- Orientation -- Oriented X4 (person, place, time, situation) -CR -- -- Light Touch -- WFL BLEs -CR -- -- Sensation Comments -- 1+ BLE edema, skin intact knees to feet bilaterally except left knee with wound vac -CR -- -- Balance -- Yes unable to test gait speed/preferred balance test -CR -- -- Static Sitting-Balance Support -- Feet supported -CR -- -- Static Sitting-Sitting Surface -- Bed -CR -- -- Static Sitting-Level of Assistance -- Distant supervision -CR -- -- Static Standing-Balance Support -- Bilateral upper extremity supported -CR -- -- Static Standing-Standing Surface -- Floor -CR -- -- Static Standing-Level of Assistance -- Minimum assistance -CR -- -- Static Standing-Comment/# of Minutes -- to prevent knee buckling/for impaired balance -CR -- -- Bed Mobility From 1 -- Supine -CR -- -- Bed Mobility Type 1 -- To -CR -- -- Bed Mobility to 1 -- Edge of bed -CR -- -- Level of Assistance 1 -- Standby Assist with HOB moderately elevated -CR -- -- Transfer -- Yes -CR -- -- Transfer From 1 -- Sit -CR -- -- Transfer Type 1 -- To and from -CR -- -- Transfer to 1 -- Stand -CR -- -- Transfer Device 1 -- No device -CR -- -- Transfer Level of Assistance 1 -- Minimum Assist -CR -- -- Trials/Comments 1 -- for force production and due to impaired balance, Pt. performs 7 trials total this date, she requires brief seated rest between each one trial, and prolonged seated break betweeneach 2 trials -CR -- -- Transfer From 2 -- Stand -CR -- -- Transfer Type 2 -- To -CR -- -- Transfer to 2 -- Chair with arms -CR -- -- Technique 2 -- -- stand and step -CR -- -- Transfer Device 2 -- Wheeled walker -CR -- -- Transfer Level of Assistance 2 -- Minimum Assist -CR -- -- Trials/Comments 2 -- for impaired balance -CR -- -- Functional Ambulation Category -- 0 -CR -- -- Ambulation -- No due to poor endurance -CR -- -- RUE Assessment -- WFL -CR -- -- LUE Assessment -- WFL -CR -- -- RLE Assessment -- WFL she notes R calf pain on stretch or WBing, MD Herrera notified -CR -- -- LLE Assessment -- -- at least 3+5 limited by pain -CR -- -- PT Treatment/Exercise Comments -- LAQ x 10, heel raises x 10, DF x 10, seated rest breaks between sets -CR -- -- Equipment Use Comments -- gait belt used -CR -- -- Other PT Comments -- Pt. reports frustration that her SpO2 was WNLs despite visibly severely SOB with minimal activity. Pt. recovers quickly with PLB. Pt. encouraged to perform seated HEP with properactivity tolerance moniotring with gabby. -CR -- -- How much difficulty does the patient have: Turning over in bed -- 3 -CR -- -- How much difficulty does the patient currently have: Sitting down and standing up from a chair witharms? -- 3 -CR -- -- How much difficulty does the patient have: Moving from lying on back to sitting on the side of the bed? -- 3 -CR -- -- How much difficulty does the patient have: Moving to and from a bed to a chair including wheelchair? -- 3 -CR -- -- How much help does the patient currently need: Walk in hospital room? -- 2 -CR -- -- How much help from another person does the patient currently need: Climbing 3-5 steps with a railing? -- 1 -CR -- -- Total Score (range 6-24) -- 15 -CR -- -- Score Interpretation -- 36.97 -CR -- -- Prognosis -- Good -CR -- -- Problem List -- Gait deviations;Decreased range of motion;Decreased endurance;Impaired balance;Decreased mobility;Decreased strength -CR -- -- Problem List Comments -- PT Diagnosis: Pt. Admitted with bilateral PE and NSTEMI results in above listed activity deficits and impairments which prevent full participation in home and community mobility. -CR -- -- Plan -- Plan of care initiated;If this is the last note, consider this the discharge summary -CR ---- PT Recommendation/Plan -- [facility] -CR -- -- PT Frequency -- 3-5x/wk -CR -- -- Treatment/Interventions -- Balance Training;Bed mobility;Functional activity;Gait training;Therapeutic activity;Therapeutic exercise -CR -- -- PT Evaluation Complete -- Yes -CR -- -- User Montgomery (r) = Recorded By, (t) = Taken By, (c) = Cosigned By Initials Name Effective Dates TR Jackie Faye, PUBLICATION SPECIALIST 02/14/19 - OSBALDO López, PT 02/14/19 - FM Arnold Zhang, PT 12/06/18 - PT TREATMENT (last 168 hours) PT Treatment No documentation. PT Notes (Notes from 06/11/19 through 06/13/19) No notes of this type exist for this encounter. , Wound Info Only Patient Lines/Drains/Airways Status Active Wound / Pressure ulcer / Roy / Negative Pressure Wound Negative Pressure Wound Therapy Left Knee Placement date: 06/10/19 Site: -- Placement time: 1910 Days: 2 Wound Type: Surgical incision Location Orientation: Left Location: Knee Assessments 06/12/19191806/12/19 0730 06/11/191909 Site Assessment MICHAEL MICHAEL MICHAEL Taya-wound Assessment MICHAEL MICHAEL MICHAEL Unit Type Ulta vac -- Ulta vac Dressing/Foam Type Black foam -- Black foam Cycle Continuous -- Continuous Dressing Status Clean/Dry/Intact;Reinforced -- Clean/Dry/Intact Dressing Change Due 06/13/19 -- 06/13/19 , Vitals Info Only Vital Signs 06/11 0700 - 06/12 0659 06/12 0700 - 06/12 1044 Most Recent Temp (??C) 36.4 - 37 36.6 36.6 (97.8) Pulse 68 - 88 76 - 107 78 Resp 18 - 20 20 20 SpO2 (%) 93 - 98 95 - 98 98 BP 130/74 - 154/96 143/97 - 175/114 143/97 MAP (mmHg) 89 - 105 115 - 140 115 , Oxygen Info Only Default Flowsheet Data (most recent) Endurance Tests No documentation. Default Flowsheet Data (last 48 hours) Oxygen Row Name 06/13/19 1025 06/13/19 1001 06/13/19 0810 06/13/19 0437 06/12/19 2248 Oxygen Therapy/Pulse Ox O2 Therapy Supplemental oxygen Supplemental oxygen Supplemental oxygen Supplemental oxygen Supplemental oxygen O2 Del Method Nasal cannula Nasal cannula Nasal cannula Manual CPAP O2 Flow Rate (L/min) 3 L/min 3 L/min 3 L/min 3 L/min 3 L/min SpO2 98 % 98 % 95 % 93 % 98 % Patient Activity At rest after working with OT At rest At rest At rest At rest Row Name 06/12/19 1919 06/12/19 1600 06/12/19 1139 06/12/19 0834 06/12/19 0325 Oxygen Therapy/Pulse Ox O2 Therapy Supplemental oxygen Supplemental oxygen Supplemental oxygen -- Supplemental oxygen O2 Del Method Nasal cannula Nasal cannula Nasal cannula Nasal cannula CPAP prongs O2 Flow Rate (L/min) 3 L/min 3 L/min 3 L/min 4 L/min 4 L/min SpO2 95 % -- 98 % 98 % 94 % Patient Activity At rest -- At rest -- At rest Row Name 06/12/19 0017 06/11/19 1910 06/11/19 1541 06/11/19 1200 Oxygen Therapy/Pulse Ox O2 Therapy Supplemental oxygen Supplemental oxygen Supplemental oxygen -- O2 Del Method Nasal cannula Nasal cannula Nasal cannula -- O2 Flow Rate (L/min) 4 L/min 4 L/min 4 L/min -- SpO2 99 % -- 98 % 98 % Patient Activity At rest At rest -- -- , NPPV Settings last 72 hours NPPV Last 72 hr Documentation (last 72 hours) Adult NPPV/NIV No documentation. * Plan of Care - Ashley Beatty RN - 06/12/2019 11:55 PM CDT Problem: Activity: Goal: Mobility will improve 06/12/20192354 by Ashley Beatty RN Outcome: Progressing 06/12/20192354 by Ashley Beatty RN Outcome: Progressing Problem: Lack of Knowledge: Goal: Understanding of ways to prevent future skin breakdown will improve 06/12/20192354 by Ashley Beatty RN Outcome: Progressing 06/12/20192354 by Ashley Beatty RN Outcome: Progressing Goal: Ability to identify appropriate dietary choices will improve 06/12/20192354 by Ashley Beatty RN Outcome: Progressing 06/12/20192354 by Ashley Beatty RN Outcome: Progressing Problem: Nutritional: Goal: Dietary intake will improve 06/12/20192354 by Ashley Beatty RN Outcome: Progressing 06/12/20192354 by Ashley Beatty RN Outcome: Progressing Goal: Ability to maintain a balanced intake and output will improve 06/12/20192354 by Ashley Beatty RN Outcome: Progressing 06/12/20192354 by Ashley Beatty RN Outcome: Progressing Problem: Skin Integrity: Goal: Risk for impaired skin integrity will decrease 06/12/20192354 by Ashley Beatty RN Outcome: Progressing 06/12/20192354 by Ashley Beatty RN Outcome: Progressing Goal: Ability to demonstrate warm and dry skin will improve 06/12/20192354 by Ashley Beatty RN Outcome: Progressing 06/12/20192354 by Ashley Beatty RN Outcome: Progressing Goal: Circulation will improve to fullest extent possible 06/12/20192354 by Ashley Beatty RN Outcome: Progressing 06/12/20192354 by Ashley Beatty RN Outcome: Progressing Problem: Lack of Knowledge: Goal: Ability to state ways to decrease the risk of falls will improve 06/12/20192354 by Ashley Beatty RN Outcome: Progressing 06/12/20192354 by Ashley Beatty RN Outcome: Progressing Problem: Safety: Goal: Will remain free from falls 06/12/20192354 by Ashley Beatty RN Outcome: Progressing 06/12/20192354 by Ashley Beatty RN Outcome: Progressing Goal: Will remain free from injury from falls 06/12/20192354 by Ashley Beatty RN Outcome: Progressing 06/12/20192354 by Ashley Beatty RN Outcome: Progressing Goal: Will remain free from falls and injury in home environment 06/12/20192354 by Ashley Beatty RN Outcome: Progressing 06/12/20192354 by Ashley Beatty RN Outcome: Progressing Problem: Health Behavior: Goal: Understanding of discharge needs will improve 06/12/20192354 by Ashley Beatty RN Outcome: Progressing 06/12/20192354 by Ashley Beatty RN Outcome: Progressing Goals: Clinical Goals for the Shift: Monitor VS, I & O, promote comfort and sleep hygiene. Summary: Ortho Doctor here to reinforce wound vac to Left knee. Sleeping well in bed. No distress noted. * Plan of Care - Dolores Florez LMSW - 06/12/2019 9:45 AM CDT Weekend SW notified top arrange d/c. SW submitted updated to [place] per request. Facilityis not prepared to accept patient today. Per chart review , pt's expected to have a wound vac change tomorrow. Floor SW to make arrangements for pt's return to [place]. ADD 06/12 * [facility] Note - Dolores Florez LMSW - 06/12/2019 9:38 AM CDT Images from the original note were not included. Patient Information: OT Eval and Treat Last 72 Hours OT Evaluation Row Name 06/10/19 1108 06/09/19 0756 Chart Reviewed Yes -SB -- Session Type Evaluation -SB -- OT Received On 06/10/19 -SB -- Safe Environment Arm Band Checked;Patient found in Supine -SB -- Subjective Agreeable to Therapy -SB -- Rehab Only - Missed Reasons - All Disciplines -- -- COVID PRECAUTIONS -SB Family/Caregiver Present No -SB -- Occupational Therapy-Patient Goal none stated -SB -- Precautions AYAD;Fall risk;Bleeding -SB -- Weight Bearing Restrictions Yes -SB -- RUE Weight Bearing WBAT -SB -- LUE Weight Bearing WBAT -SB -- RLE Weight Bearing WBAT -SB -- LLE Weight Bearing WBAT -SB -- Precaution Handout Issued No -SB -- Precaution Comments verbally informed pt. -SB -- Type of Home House -SB -- Home Layout One level -SB -- Home Access Stairs to enter without rails -SB -- Entrance Stairs-Rails None -SB -- Entrance Stairs-Number of Steps 1+1 -SB -- Bathroom Shower/Tub Walk-in shower with threshold -SB -- Bathroom Toilet Standard -SB -- Bathroom Equipment Grab bars in shower/tub;Built-in shower seat;Tub transfer bench;Commode -SB -- Home Mobility Equipment Wheeled walker -SB -- Additional Comments per pt. 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 -SB -- Level of [place] Independent with ADLs;Independent functional transfers;Independent with ambulation;Independent with homemaking with ambulation -SB -- Lives With Spouse 06/10 (min) assist -SB -- Receives Help From Neighbor;Family inspector timers assist available -SB -- Driving Yes -SB -- Mode of Transportation Driven by self traveling in an RV over the last 2months - SB -- ADL Assistance Independent -SB -- Instrumental ADL (IADL) Assistance Independent -SB -- Vocational/Occupation Retired -SB -- Leisure Hobbies-yes (Comment) travels in an RV with her -SB -- Fall within the last 6 months Yes -SB -- Fall within the last 6 months comment per pt. report 1 fall in last 6mo 2/2 missing a step in her home resulting in a L distal femur fx and L hip fx -SB -- Prior Function Comments per pt. 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 -SB -- ADLS (WDL) X -SB -- Grooming: Where assessed Chair -SB -- Grooming: Level of assistance Minimum Assist mod A standing balance, setup task -SB -- Grooming: Assistance with Teeth care;Standing with assistive device;Safety -SB -- LE Dressing: Where assessed Sitting;Chair -SB -- LE Dressing: Level of assistance Maximum Assist -SB -- LE Dressing: Assistance with Safety;Pull up over hips;Don/doff R sock;Don/doff L sock;Thread RLE into pants;Thread LLE into pants;Thread RLE into underwear;Thread LLE into underwear;Increased time tocomplete;Verbal cueing;Supervision/safety -SB -- Toileting: Where assessed Chair simulated -SB -- Toileting: Level of assistance Maximum Assist -SB -- Toileting: Assistance with Clothing management up;Clothing management down;Anterior;Perineal hygiene;Posterior;Increased time to complete;Bedside commode;Other (Comment) balance -SB -- Toilet Transfers Comments simulated to BSC - see t/f notes below -SB -- Pain Assessment No/denies pain -SB -- Activity Tolerance Comments gabby: hard; ADAMS/SOB -SB -- Current Vision Wears glasses only for reading -SB -- Cognition Comments SBT=IMP; additional time required for complex thought processes; pt. pleasant and demonstrate fair insight -SB -- Overall Cognitive Status Impaired -SB -- Arousal/Alertness Alert -SB -- Attention Span Appears intact -SB -- Memory Decreased short term memory -SB -- Current communication Appears Intact -SB -- Orientation Oriented X4 (person, place, time, situation) -SB -- Following Commands Follows all commands and directions without difficulty -SB -- Safety Judgment Decreased awareness of need for assistance -SB -- Awareness of Errors Decreased awareness of errors;Assistance required to correct errors made;Assistance required to identify errors made -SB -- Insight Decreased awareness of deficits -SB -- Problem Solving Assistance required to implement solutions;Assistance required to generate solutions;Assistance required to identify errors made -SB -- Compliance/Behavior Easy to engage -SB -- Perseveration Not present -SB -- Numbness/Tingling No -SB -- Motor Planning Appears intact -SB -- Movements Are Fluid and Coordinated 1 -SB -- Fine Motor WFL -SB -- Serial Opposition WFL -SB -- Hand Preference Right -SB -- Coordination Functional -SB -- Gross Grasp Functional -SB -- RUE Reach WFL -SB -- LUE Reach WFL -SB -- RUE Grasp Gross grasp 4/5 -SB -- LUE Grasp Gross grasp 4/5 -SB -- Balance Yes -SB -- Static Sitting-Balance Support Feet supported;No upper extremity supported -SB -- Static Sitting-Sitting Surface Bed -SB -- Static Sitting-Level of Assistance Close supervision -SB -- Static Sitting-Comment/# of Minutes pt. tolerated sitting EOB ~5 min., c/o of discomfort in RLE even while supported -SB -- Static Standing-Balance Support Bilateral upper extremity supported -SB -- Static Standing-Standing Surface Floor -SB -- Static Standing-Level of Assistance Moderate assistance -SB -- Static Standing-Comment/# of Minutes pt. mod A to maintain standing ~30 seconds -SB -- Bed Mobility Yes -SB -- Bed Mobility From 1 Supine -SB -- Bed Mobility Type 1 To -SB -- Bed Mobility to 1 Edge of bed -SB -- Level of Assistance 1 Standby Assist -SB -- Bed Mobility Comments 1 HOB elevated, use of bed rails and BUE for trunk elevation, additional timerequired -SB -- Transfer Yes -SB -- Transfer From 1 Bed;Sit -SB -- Transfer Type 1 To and from -SB -- Transfer to 1 Stand -SB -- Technique 1 Sit to stand;Stand to sit -SB -- Transfer Device 1 Hand held assist -SB -- Transfer Level of Assistance 1 Minimum Assist;Moderate verbal cues -SB -- Trials/Comments 1 pt. min A from elevated bed surface and mod vcues -SB -- Transfer From 2 Stand -SB -- Transfer Type 2 To -SB -- Transfer to 2 Sit;Chair with arms -SB -- Technique 2 Stand pivot;Lateral -SB -- Transfer Device 2 Hand held assist -SB -- Transfer Level of Assistance 2 Moderate Assist;Moderate verbal cues -SB -- Trials/Comments 2 pt. mod a for lateral side step t/f to recliner, mod vcues for body mechanics andsafety, encouragement for pt. not to hold her breath pt. very anxious during t/f, FOF -SB -- RUE Assessment WFL MMT: 06/18 -SB -- LUE Assessment WFL MMT: 06/18 -SB -- Comments pt. tolerated OT evaluation well, demonstrating deficits in balance, endurance, t/f, decreased ADL IND and functional mobility this date. Pt. requiring several rest breaks / SOB -SB -- Problem List Decreased cognition;Decreased endurance;Decreased balance;Decreased functional mobility;Decreased ADL independence;Decreased IADL independence -SB -- Barriers to Discharge Current Mobility Status;Decreased caregiver support;Cognition;Decreased safety awareness;Home environment challenged -SB -- Plan Plan of care initiated;If this is the last note, consider this the discharge summary -SB -- OT Recommendation Inpatient Rehab Facility -SB -- OT Recommendation/Plan Comments pt. educated on OT role, POC and d/c rec.'s at this time. -SB -- Treatment/Interventions Equipment eval/education;Functional activity;Balance Training;Functional transfer training;Parent/caregiver training and education;Therapeutic activity -SB -- OT - Next Appointment 06/13/19 -SB -- OT Evaluation Complete Yes -SB -- User Montgomery (r) = Recorded By, (t) = Taken By, (c) = Cosigned By Initials Name Effective Dates ARISTIDES Keys OT 02/14/19 - OT Treatment No documentation. OT Notes (Notes from 06/10/19 through 06/12/19) No notes of this type exist for this encounter. , PT Eval and Treat Last 72 Hours PT Evaluation Row Name 06/11/19 0742 06/10/19 0715 06/09/19 0818 Chart Reviewed Yes -CR -- -- Session Type Evaluation -CR -- -- Safe Environment Arm Band Checked;Call Light within Reach;Notified RN;Session Completed Bedside;Patient found in Supine;Overbed Table within Reach -CR -- -- Subjective Agreeable to Therapy -CR -- -- PT Missed Visit Reason -- Change in medical status elevated trops 2.97 -FM MD/RN Hold;Other (comment) pending further results (COVID 19) -FM Family/Caregiver Present No -CR -- -- Physical Therapy-Patient Goal to do more with less SOB -CR -- -- RUE Weight Bearing WBAT -CR -- -- LUE Weight Bearing WBAT -CR -- -- RLE Weight Bearing WBAT -CR -- -- LLE Weight Bearing WBAT -CR -- -- Precaution Comments reviewed with patient -CR -- -- Type of Home House -CR -- -- Home Layout One level -CR -- -- Home Access Stairs to enter without rails -CR -- -- Entrance Stairs-Rails None -CR -- -- Entrance Stairs-Number of Steps 1+1 -CR -- -- Home Mobility Equipment Wheeled walker -CR -- -- Level of [place] Independent functional transfers;Independent with ADLs;Independent with ambulation -CR -- -- Lives With Spouse inspector timers assistance -CR -- -- Receives Help From Family -CR -- -- Fall within the last 6 months Yes -CR -- -- Fall within the last 6 months comment 1 fall, missing step in home, resulting in femur fracture -CR-- -- Prior Function Comments Pt. reports independence prior to fall this month. Since discharge from initial hospitalization patient was at SNF for rehab but unable to tolerate much activity, wasn't walking because of SOB -CR -- -- Activity Tolerance Comments gabby hard -CR -- -- Pain Assessment 0-10 -CR -- -- Pain Score 3 -CR -- -- Pain Location Leg -CR -- -- Pain Orientation Left -CR -- -- Pain Interventions Repositioned -CR -- -- Orientation Oriented X4 (person, place, time, situation) -CR -- -- Light Touch WFL BLEs -CR -- -- Sensation Comments 1+ BLE edema, skin intact knees to feet bilaterally except left knee with wound vac -CR -- -- Balance Yes unable to test gait speed/preferred balance test -CR -- -- Static Sitting-Balance Support Feet supported -CR -- -- Static Sitting-Sitting Surface Bed -CR -- -- Static Sitting-Level of Assistance Distant supervision -CR -- -- Static Standing-Balance Support Bilateral upper extremity supported -CR -- -- Static Standing-Standing Surface Floor -CR -- -- Static Standing-Level of Assistance Minimum assistance -CR -- -- Static Standing-Comment/# of Minutes to prevent knee buckling/for impaired balance -CR -- -- Bed Mobility From 1 Supine -CR -- -- Bed Mobility Type 1 To -CR -- -- Bed Mobility to 1 Edge of bed -CR -- -- Level of Assistance 1 Standby Assist with HOB moderately elevated -CR -- -- Transfer Yes -CR -- -- Transfer From 1 Sit -CR -- -- Transfer Type 1 To and from -CR -- -- Transfer to 1 Stand -CR -- -- Transfer Device 1 No device -CR -- -- Transfer Level of Assistance 1 Minimum Assist -CR -- -- Trials/Comments 1 for force production and due to impaired balance, Pt. performs 7 trials total this date, she requires brief seated rest between each one trial, and prolonged seated break between each 2 trials -CR -- -- Transfer From 2 Stand -CR -- -- Transfer Type 2 To -CR -- -- Transfer to 2 Chair with arms -CR -- -- Technique 2 -- stand and step -CR -- -- Transfer Device 2 Wheeled walker -CR -- -- Transfer Level of Assistance 2 Minimum Assist -CR -- -- Trials/Comments 2 for impaired balance -CR -- -- Functional Ambulation Category 0 -CR -- -- Ambulation No due to poor endurance -CR -- -- RUE Assessment WFL -CR -- -- LUE Assessment WFL -CR -- -- RLE Assessment WFL she notes R calf pain on stretch or WBing, MD Herrera notified -CR -- -- LLE Assessment -- at least 3+5 limited by pain -CR -- -- PT Treatment/Exercise Comments LAQ x 10, heel raises x 10, DF x 10, seated rest breaks between sets-CR -- -- Equipment Use Comments gait belt used -CR -- -- Other PT Comments Pt. reports frustration that her SpO2 was WNLs despite visibly severely SOB with minimal activity. Pt. recovers quickly with PLB. Pt. encouraged to perform seated HEP with proper activity tolerance moniotring with gabby. -CR -- -- How much difficulty does the patient have: Turning over in bed 3 -CR -- -- How much difficulty does the patient currently have: Sitting down and standing up from a chair witharms? 3 -CR -- -- How much difficulty does the patient have: Moving from lying on back to sitting on the side of the bed? 3 -CR -- -- How much difficulty does the patient have: Moving to and from a bed to a chair including wheelchair? 3 -CR -- -- How much help does the patient currently need: Walk in hospital room? 2 -CR -- -- How much help from another person does the patient currently need: Climbing 3-5 steps with a railing? 1 -CR -- -- Total Score (range 6-24) 15 -CR -- -- Score Interpretation 36.97 -CR -- -- Prognosis Good -CR -- -- Problem List Gait deviations;Decreased range of motion;Decreased endurance;Impaired balance;Decreased mobility;Decreased strength -CR -- -- Problem List Comments PT Diagnosis: Pt. Admitted with bilateral PE and NSTEMI results in above listed activity deficits and impairments which prevent full participation in home and community mobility. -CR -- -- Plan Plan of care initiated;If this is the last note, consider this the discharge summary -CR -- -- PT Recommendation/Plan [facility] -CR -- -- PT Frequency 3-5x/wk -CR -- -- Treatment/Interventions Balance Training;Bed mobility;Functional activity;Gait training;Therapeuticactivity;Therapeutic exercise -CR -- -- PT Evaluation Complete Yes -CR -- -- User Montgomery (r) = Recorded By, (t) = Taken By, (c) = Cosigned By Initials Name Effective Dates CR Moriah López, PT 02/14/19 - FM Arnold Zhang, PT 12/06/18 - PT TREATMENT (last 168 hours) PT Treatment No documentation. PT Notes (Notes from 06/10/19 through 06/12/19) No notes of this type exist for this encounter. , Wound Info Only Patient Lines/Drains/Airways Status Active Wound / Pressure ulcer / Roy / Negative Pressure Wound Negative Pressure Wound Therapy Left Knee Placement date: 06/10/19 Site: -- Placement time: 1910 Days: 1 Wound Type: Surgical incision Location Orientation: Left Location: Knee Assessments 06/12/19 0730 06/11/19 19106/11/19 0742 06/11/19 0300 06/10/19 2300 Site Assessment MICHAEL MICHAEL MICHAEL -- -- Taya-wound Assessment MICHAEL MICHAEL MICHAEL -- -- Unit Type -- Ulta vac -- -- -- Dressing/Foam Type -- Black foam -- -- -- # of Foam Pieces Placed -- -- -- -- -- Cycle -- Continuous -- -- -- Canister Changed -- -- -- -- -- Dressing Status -- Clean/Dry/Intact -- -- -- Dressing Change Due -- 06/13/19 -- -- -- Drain output (mL) -- -- -- 0 mL 0 mL Net Output (mL) -- -- -- 0 mL 0 mL 06/10/19 2200 06/10/19 1900 Site Assessment -- Intact;Prichard Taya-wound Assessment -- Dry;Intact Unit Type -- Ulta vac Dressing/Foam Type -- Black foam # of Foam Pieces Placed -- 3 Cycle -- Continuous Canister Changed -- Yes Dressing Status -- New;Clean/Dry/Intact;Wound vac intact Dressing Change Due -- 06/13/19 Drain output (mL) 0 mL 0 mL Net Output (mL) 0 mL 0 mL , Vitals Info Only Vital Signs 06/10 0700 - 06/11 0659 06/11 07 - 06/11 0942 Most Recent Temp (??C) 36.6 - 36.8 37 37 (98.6) Pulse 64 - 107 77 77 Resp 16 - 20 20 SpO2 (%) 94 - 99 98 98 BP 139/87 - 173/96 154/82 154/82 MAP (mmHg) 86 - 111 101 101 * [facility] Note - Dolores Florez LMSW - 06/12/2019 9:37 AM CDT Images from the original note were not included. Patient Information: Comprehensive Nursing Documentation Attending Provider: Ned Urbina MD Allergies: Prasanth Inhibitors, Citalopram, Lisinopril Isolation: None Infection: None Code Status: FULL Ht: 157.5 cm (5' 2 ) Wt: 98.7 kg (217 lb 9.6 oz) Admission Cmt: None Principal Problem: Pulmonary embolism (CMS/HCC) [I26.99] Elopement Risk Date/Time Elopement Risk User 06/09/19 0100 No risk GG Intake/Output 06/09/19 0700 - 06/10/19 0659 06/10/19 0700 - 06/11/19 0659 06/11/19 0700 - 06/12/19 0659 06/12/19 0700 - 06/13/19 0659 Total Total 1945-8622 7766-6570 9545-2271 Total 7857-5675 3520-6582 3627-7497 Total Intake (ml) 1121.1 1291.9 -- 120 160 280 -- -- -- -- Output (ml) 650 1775 700 103 829 5454 200 -- -- 200 Net (ml) 471.1 -483.1 -700 - -200 -- -- -200 Last Weight -- 99.6 kg (219 lb 9.6 oz) -- -- 98.7 kg (217 lb 9.6 oz) -- -- -- -- -- Patient Lines/Drains/Airways Status Active Airway / Central venous catheter / Drain / Epidural cathether / Intraosseous line / Peripherally inserted central catheter / Peripheral intravenous line / Arterial line Name: Placement date: Placement time: Site: Days: Peripheral IV 06/08/19 18 G Left Antecubital 06/08/19 1625 Antecubital 3 Peripheral IV 06/08/19 20 G Right Hand 06/08/19 2258 Hand 3 Patient Lines/Drains/Airways Status Active Wound / Pressure ulcer / Roy / Negative Pressure Wound Negative Pressure Wound Therapy Left Knee Placement date: 06/10/19 Site: -- Placement time: 1910 Days: 1 Wound Type: Surgical incision Location Orientation: Left Location: Knee Assessments 06/12/19 0730 06/11/191909 06/11/19 0742 06/11/19 0300 06/10/19 2300 Site Assessment MICHAEL MICHAEL MICHAEL -- -- Taya-wound Assessment [facility] MICHAEL -- -- Unit Type -- Ulta vac -- -- -- Dressing/Foam Type -- Black foam -- -- -- # of Foam Pieces Placed -- -- -- -- -- Cycle -- Continuous -- -- -- Canister Changed -- -- -- -- -- Dressing Status -- Clean/Dry/Intact -- -- -- Dressing Change Due -- 06/13/19 -- -- -- Drain output (mL) -- -- -- 0 mL 0 mL Net Output (mL) -- -- -- 0 mL 0 mL 06/10/19219906/10/191899 Site Assessment -- Intact;Prichard Taya-wound Assessment -- Dry;Intact Unit Type -- Ulta vac Dressing/Foam Type -- Black foam # of Foam Pieces Placed -- 3 Cycle -- Continuous Canister Changed -- Yes Dressing Status -- New;Clean/Dry/Intact;Wound vac intact Dressing Change Due -- 06/13/19 Drain output (mL) 0 mL 0 mL Net Output (mL) 0 mL 0 mL Mejia Fall Risk Most Recent Value Auto Low/High - if selected proceed to interventions High risk-visit due to a fall or hx of > 1 fall in past 3 months ............filed at 06/10/2019 0744 History of Falling 25 ............filed at 06/12/2019 0730 Secondary Diagnosis 15 ............filed at 06/12/2019 0730 Ambulatory Aids 0 ............filed at 06/12/2019 0730 Intravenous Therapy/Heparin/Saline Lock 20 ............filed at 06/12/2019 0730 Gait/Transferring 0 ............filed at 06/12/2019 0730 Mental Status 0 ............filed at 06/12/2019 0730 Mejia Fall Risk Score 60 ............filed at 06/12/2019 0730 Vital Signs 06/10 07 - 06/11 0659 06/11 07 - 06/11 0938 Most Recent Temp (??C) 36.6 - 36.8 37 37 (98.6) Pulse 64 - 107 77 77 Resp 16 - 20 20 SpO2 (%) 94 - 99 98 98 BP 139/87 - 173/96 154/82 154/82 MAP (mmHg) 86 - 111 101 101 Default Flowsheet Data (most recent) Endurance Tests No documentation. Default Flowsheet Data (most recent) Balance Tests - 06/10/19 1147 Tinetti Sitting Balance 1 Arises 0 Attempts to Arise 0 Immediate Standing Balance (First 5 Seconds) 0 Standing Balance 0 Nudged 0 Eyes Closed 0 Turned 360 Degrees: Steadiness 0 Turned 360 Degrees: Continuity of Steps 0 Sitting Down 0 Balance Score 1 Nursing Nutrition None Nursing Mobility Activity 06/11 0730 Resting in bed 06/11 0619 Resting in bed;Turn 06/11 0425 Resting in bed;Turn 06/11 0230 Resting in bed;Turn 06/11 0037 Resting in bed;Turn 06/10 2230 Resting in bed;Turn 06/10 2137 Resting in bed;Turn 06/10 2030 Resting in bed;Turn 06/10 1906 Resting in bed;Turn 06/10 1812 Chair 06/10 1730 Chair 06/10 1630 Chair 06/10 1530 Chair 06/10 1430 Chair 06/10 1330 Chair 06/10 1230 Chair 06/10 1130 Chair 06/10 1030 Chair 06/10 0930 Chair 06/10 0830 Chair 06/10 0730 Resting in bed 06/10 0512 Sleeping 06/10 0318 Sleeping 06/10 0128 Sleeping 06/09 2305 Resting in bed 06/09 2208 Resting in bed 06/09 2136 Resting in bed 06/09 2011 Resting in bed 06/09 1900 Resting in bed 06/09 1800 Resting in bed 06/09 1700 Resting in bed 06/09 1600 Resting in bed 06/09 1500 Chair 06/09 1400 Chair 06/09 1300 Chair 06/09 1200 Chair 06/09 1110 Chair 06/09 1000 Resting in bed 06/09 0915 Resting in bed 06/09 0830 Resting in bed 06/09 0744 Resting in bed 06/09 0700 Sleeping 06/09 0611 Sleeping 06/09 0415 Sleeping 06/09 0354 Sleeping 06/09 0320 Sleeping 06/09 0235 Sleeping 06/09 0035 Sleeping 06/08 2345 Sleeping 06/08 2235 Sleeping 06/08 2143 Resting in bed 06/08 2049 Resting in bed 06/08 204 Resting in bed 06/08 1915 Resting in bed 06/08 1800 Resting in bed 06/08 1700 Resting in bed 06/08 1600 Resting in bed;Sleeping 06/08 1500 Resting in bed;Sleeping 06/08 1400 Resting in bed;Sleeping 06/08 1300 Resting in bed;Sleeping 06/08 1200 Resting in bed;Sleeping 06/08 1100 Resting in bed;Sleeping 06/08 1000 Resting in bed;Sleeping Level of Assistance 06/11 0619 Moderate assist, patient does 50-74% 06/11 0425 Moderate assist, patient does 50-74% 06/11 0230 Moderate assist, patient does 50-74% 06/11 0037 Moderate assist, patient does 50-74% 06/10 2230 Moderate assist, patient does 50-74% 06/10 2136 Moderate assist, patient does 50-74% 06/10 2029 Moderate assist, patient does 50-74% 06/10 190 Moderate assist, patient does 50-74% 06/09 190 Moderate assist, patient does 50-74% 06/09 0354 Minimal assist, patient does 75% or more 06/08 2049 Modified independent, requires aide device or extra time 06/08 1914 Moderate assist, patient does 50-74% Assistive Device 06/09 0354 None 06/08 2049 None Ambulation Response 06/10 190 Tolerated well Repositioned 06/11 0730 Turns self 06/11 0619 Turns self 06/11 0425 Turns self 06/11 0230 Turns self 06/11 0037 Turns self 06/10 2230 Turns self 06/10 2137 Turns self 06/10 2030 Turns self 06/10 1906 Turns self 06/10 0512 Turns self;Semi Casanova's 06/10 0318 Turns self;Semi Casanova's 06/10 0128 Turns self;Semi Casanova's 06/09 2305 Turns self;Semi Casanova's 06/09 2208 Turns self;Semi Casanova's 06/09 2136 Turns self;Semi Casanova's 06/09 2011 Turns self;Semi Casanova's 06/09 1900 Turns self;Semi Casnaova's 06/09 1800 Turns self 06/09 1700 Turns self 06/09 1600 Turns self 06/09 1500 Turns self 06/09 1400 Turns self 06/09 1300 Turns self 06/09 1200 Turns self 06/09 1110 Turns self 06/09 1000 Turns self 06/09 0915 Turns self 06/09 0830 Turns self 06/09 0744 Turns self 06/09 0700 Turns self 06/09 0611 Turns self;Semi Casanova's 06/09 0415 Turns self;Semi Casanova's 06/09 0354 Turns self 06/09 0320 Turns self;Semi Casanova's 06/09 0235 Turns self;Semi Casanova's 06/09 0035 Turns self;Semi Casanova's 06/08 2345 Turns self;Semi Casanova's 06/08 2235 Turns self;Semi Casanova's 06/08 2143 Turns self;Semi Casanova's 06/08 2050 Turns self 06/08 2046 Turns self;Semi Casanova's 06/08 1915 Turns self;Semi Casanova's 06/08 1800 Turns self 06/08 1700 Turns self 06/08 1600 Turns self 06/08 1500 Turns self 06/08 1400 Turns self 06/08 1300 Turns self 06/08 1200 Turns self 06/08 1100 Turns self 06/08 1000 Turns self Positioning Frequency 06/11 0730 Able to turn self 06/11 0619 Able to turn self 06/11 0425 Able to turn self 06/11 0230 Able to turn self 06/11 0037 Able to turn self 06/10 2230 Able to turn self 06/10 2137 Able to turn self 06/10 2030 Able to turn self 06/10 1906 Able to turn self 06/10 0730 Able to turn self 06/10 0512 Able to turn self 06/10 0318 Able to turn self 06/10 0128 Able to turn self 06/09 2305 Able to turn self 06/09 2208 Able to turn self 06/09 2136 Able to turn self 06/09 2011 Able to turn self 06/09 1900 Able to turn self 06/09 1800 Able to turn self 06/09 1700 Able to turn self 06/09 1600 Able to turn self 06/09 1500 Able to turn self 06/09 1400 Able to turn self 06/09 1300 Able to turn self 06/09 1200 Able to turn self 06/09 1110 Able to turn self 06/09 1000 Able to turn self 06/09 0915 Able to turn self 06/09 0830 Able to turn self 06/09 0744 Able to turn self 06/09 0700 Able to turn self 06/09 0611 Able to turn self 06/09 0415 Able to turn self 06/09 0354 Able to turn self 06/09 0320 Able to turn self 06/09 0235 Able to turn self 06/09 0035 Able to turn self 06/08 2345 Able to turn self 06/08 2235 Able to turn self 06/08 2143 Able to turn self 06/08 2050 Able to turn self 06/08 2046 Able to turn self 06/08 1915 Able to turn self 06/08 1800 Able to turn self 06/08 1700 Able to turn self 06/08 1600 Able to turn self 06/08 1500 Able to turn self 06/08 1400 Able to turn self 06/08 1300 Able to turn self 06/08 1200 Able to turn self 06/08 1100 Able to turn self 06/08 1000 Able to turn self Head of Bed Elevated 06/11 0730 Self regulated 06/11 0619 Self regulated 06/11 0425 Self regulated 06/11 0230 Self regulated 06/11 0037 Self regulated 06/10 2230 Self regulated 06/10 2137 Self regulated 06/10 2030 Self regulated 06/10 1906 Self regulated 06/10 0730 Self regulated 06/10 0512 Self regulated 06/10 0318 Self regulated 06/10 0128 Self regulated 06/09 2305 Self regulated 06/09 2208 Self regulated 06/09 2136 Self regulated 06/09 2011 Self regulated 06/09 1900 Self regulated 06/09 1800 Self regulated 06/09 1700 Self regulated 06/09 1600 Self regulated 06/09 1500 Self regulated 06/09 1400 Self regulated 06/09 1300 Self regulated 06/09 1200 Self regulated 06/09 1110 Self regulated 06/09 1000 Self regulated 06/09 0915 Self regulated 06/09 0830 Self regulated 06/09 0744 Self regulated 06/09 0700 Self regulated 06/09 0611 Self regulated 06/09 0415 Self regulated 06/09 0354 Self regulated 06/09 0320 Self regulated 06/09 0235 Self regulated 06/09 0035 Self regulated 06/08 2345 Self regulated 06/08 2235 Self regulated 06/08 2143 Self regulated 06/08 205 Self regulated 06/08 2046 Self regulated 06/08 1915 Self regulated 06/08 1800 Self regulated 06/08 1700 Self regulated 06/08 1600 Self regulated 06/08 1500 Self regulated 06/08 1400 Self regulated 06/08 1300 Self regulated 06/08 1200 Self regulated 06/08 1100 Self regulated 06/08 1000 Self regulated Heels/Feet 06/11 0619 Heels elevated off bed 06/11 0425 Heels elevated off bed 06/11 0230 Heels elevated off bed 06/11 0037 Heels elevated off bed 06/10 2230 Heels elevated off bed 06/10 2137 Heels elevated off bed 06/10 2030 Heels elevated off bed 06/10 1906 Heels elevated off bed 06/10 1430 Heels elevated off bed 06/10 1330 Heels elevated off bed 06/10 1130 Heels elevated off bed 06/10 1030 Heels elevated off bed 06/10 0930 Heels elevated off bed 06/10 0830 Heels elevated off bed 06/10 0512 Foot of bed elevated 06/10 0318 Foot of bed elevated 06/10 0128 Foot of bed elevated 06/09 2305 Foot of bed elevated 06/09 2208 Foot of bed elevated 06/09 2136 Foot of bed elevated 06/09 2011 Foot of bed elevated 06/09 1900 Foot of bed elevated 06/09 0700 Foot of bed elevated 06/09 0611 Foot of bed elevated 06/09 0415 Foot of bed elevated 06/09 0354 Foot of bed elevated 06/09 0320 Foot of bed elevated 06/09 0235 Foot of bed elevated 06/09 0035 Foot of bed elevated 06/08 2345 Foot of bed elevated 06/08 2235 Foot of bed elevated 06/08 2143 Foot of bed elevated 06/08 2050 Foot of bed elevated 06/08 2046 Foot of bed elevated 06/08 1915 Foot of bed elevated 06/08 1300 Foot of bed elevated Range of Motion 06/11 0730 Active 06/10 1906 Active;All extremities 06/10 0730 Active 06/10 0512 Active 06/10 0318 Active 06/10 0128 Active 06/09 2305 Active 06/09 2208 Active 06/09 2136 Active 06/09 2010 Active 06/09 1900 Active;All extremities 06/09 0611 Active 06/09 0415 Active 06/09 0320 Active 06/09 0235 Active 06/09 0035 Active 06/08 2345 Active 06/08 2235 Active 06/08 2143 Active 06/08 2046 Active 06/08 1915 Active;All extremities , Meds and Admin Active Only All Meds/Most Recent Administrations metoprolol (LOPRESSOR) injection 5 mg [[id number]] Ordering Provider: Beau Eldridge MD Status: Completed (Past End Date/Time) Ordered On: 06/08/191648 Starts/Ends: 06/08/191649 - 06/08/191722 Dose (Remaining/Total): 5 mg (0/1) Route: intravenous Frequency: Once Rate/Duration: -- / 1 Minutes Line Med Link Info Comment Peripheral IV 06/08/19 18 G Left Antecubital 06/08/191721 by Chandni Cam RN -- Timestamps Action Dose / Duration Route Other Information 06/08/191721 Given 5 mg 1 Minutes intravenous Performed by: Chandni Cam RN LORazepam (ATIVAN) injection 1 mg [[id number]] Ordering Provider: Pascale Santos MD Status: Completed (Past End Date/Time) Ordered On: 06/08/191754 Starts/Ends: 06/08/191754 - 06/08/191825 Dose (Remaining/Total): 1 mg (0/1) Route: intravenous Frequency: Once Rate/Duration: -- / -- Admin Instructions: For IV administration, dilute with equal volume of 0.9% sodium chloride. Do not exceed a rate of 2 mg/minute Line Med Link Info Comment Peripheral IV 06/08/19 18 G Left Antecubital 06/08/191825 by Jessika Leon RN -- Timestamps Action Dose Route Other Information 06/08/191825 Given 1 mg intravenous Performed by: Jessika Leon RN metoprolol (LOPRESSOR) injection 5 mg [[id number]] Ordering Provider: Beau Eldridge MD Status: Completed (Past End Date/Time) Ordered On: 06/08/191937 Starts/Ends: 06/08/191938 - 06/08/192121 Dose (Remaining/Total): 5 mg (0/1) Route: intravenous Frequency: Once Rate/Duration: -- / 1 Minutes Timestamps Action Dose / Duration Route Other Information 06/08/192120 Given 5 mg 1 Minutes intravenous Performed by: Jo Ann Tompkins RN furosemide (LASIX) 10 mg/mL injection 20 mg [[id number]] Ordering Provider: Beau Eldridge MD Status: Completed (Past End Date/Time) Ordered On: 06/08/191937 Starts/Ends: 06/08/191938 - 06/08/192121 Dose (Remaining/Total): 20 mg (0/1) Route: intravenous Frequency: Once Rate/Duration: -- / 1 Minutes Admin Instructions: Room temperature only Timestamps Action Dose / Duration Route Other Information 06/08/192120 Given 20 mg 1 Minutes intravenous Performed by: Jo Ann Tompkins RN aspirin tablet 325 mg [[id number]] Ordering Provider: Beau Eldridge MD Status: Completed (Past End Date/Time) Ordered On: 06/08/191946 Starts/Ends: 06/08/191947 - 06/08/192120 Dose (Remaining/Total): 325 mg (0/1) Route: oral Frequency: Once Rate/Duration: -- / -- Timestamps Action Dose Route Other Information 06/08/192120 Given 325 mg oral Performed by: Jo Ann Tompkins RN heparin 1,000 unit/mL injection 4,000 Units [[id number]] Ordering Provider: Dwayne Jacobsen MD Status: Completed (Past End Date/Time) Ordered On: 06/08/192048 Starts/Ends: 06/08/192049 - 06/08/192145 Dose (Remaining/Total): 4,000 Units (0/1) Route: intravenous Frequency: Once Rate/Duration: -- / -- Admin Instructions: Initial bolus prior to starting heparin infusion. Do not adjust initial bolus based on patient PTT. Line Med Link Info Comment Peripheral IV 06/08/19 18 G Left Antecubital 06/08/192145 by Abi Culp RN -- Timestamps Action Dose Route Other Information 06/08/192145 Given 4,000 Units intravenous Performed by: Abi Culp RN Dual Signoff by: Ryann Brenner RN heparin in 0.45% sodium chloride 25,000 units/250 mL (100 units/mL) infusion (premix) [[id number]] Ordering Provider: David Horn MD Status: Dispensed (Past End Date/Time) Ordered On: 06/08/192048 Starts/Ends: 06/08/192049 - 06/10/192308 Dose (Remaining/Total): 1-33 Units/kg/hr (--/--) Route: intravenous Frequency: Titrated Rate/Duration: 0.91-29.93 mL/hr / -- Admin Instructions: Initial rate:: 11 Units/kg/hr. Max initial rate 1,000 units/hr. Adjust infusionbased upon nomogram: PTT less than 40 seconds: Bolus if ordered (see PRN bolus order) , then increase infusion rate 3 units/kg/hour PTT 40 - 50.9 seconds: Bolus if ordered (see PRN bolus order), then increase infusion rate 2 units/kg/hour PTT 51 - 59.9 seconds: No bolus, increase infusion rate 1 unit/kg/hour PTT 60 - 94.9 seconds: No change PTT 95 - 104.9 seconds: No bolus, decrease infusion rate 1 unit/kg/hour PTT 105 - 114.9 seconds: Hold infusion for 30 minutes, then decrease infusion rate 2 units/kg/hour PTT 115 or greater seconds: Hold infusion for 1 hour, then decrease infusion rate 3 units/kg/hour Draw STAT PTT 6 hrs after initial heparin bolus, after each rate change, and every 6 hours until 2 consecutive PTTs are within therapeutic range. Once two consecutive PTT's are therapeutic (60-94.9 seconds), then draw PTT every AM until heparin is discontinued. Line Med Link Info Comment Peripheral IV 06/08/19 18 G Left Antecubital 06/08/192146 by Abi Culp RN -- Timestamps Action Dose / Rate Route Other Information 06/10/19 2241 New Bag 14 Units/kg/hr 12.7 mL/hr intravenous Performed by: Maia Lee RN Dual Signoff by: Rachel Hou RN calcium carbonate (TUMS) chewable tablet 500 mg [[id number]] Ordering Provider: Dwayne Jacobsen MD Status: Completed (Past End Date/Time) Ordered On: 06/08/192137 Starts/Ends: 06/08/192138 - 06/08/192302 Dose (Remaining/Total): 200 mg of elemental calcium (0/) Route: oral Frequency: Once Rate/Duration: -- / -- Timestamps Action Dose Route Other Information 06/08/192302 Given 500 mg oral Performed by: Pam Gill RN cholecalciferol (VITAMIN D-3) capsule 1,000 Units [[id number]] Ordering Provider: Berny Lobo MD Status: Dispensed Ordered On: 06/09/19427 Start: 06/09/19 09 Dose (Remaining/Total): 1,000 Units (--/--) Route: oral Frequency: Daily Rate/Duration: -- / -- Timestamps Action Dose Route Other Information 06/12/19 0850 Given 1,000 Units oral Performed by: Stas Robbins RN DULoxetine DR (CYMBALTA) extended release capsule 60 mg [[id number]] Ordering Provider: Berny Lobo MD Status: Dispensed Ordered On: 06/09/19427 Start: 06/09/19 0900 Dose (Remaining/Total): 60 mg (--/--) Route: oral Frequency: Daily Rate/Duration: -- / -- Admin Instructions: Capsule may be opened and contents mixed with applesauce or apple juice ONLY. Do not crush, chew, cut, dissolve, open or otherwise manipulate tablet/capsule. Timestamps Action Dose Route Other Information 06/12/19 0850 Given 60 mg oral Performed by: Stas Robbins RN levothyroxine (SYNTHROID) tablet 25 mcg [[id number]] Ordering Provider: Berny Lobo MD Status: Dispensed Ordered On: 06/09/19427 Start: 06/09/19 0715 Dose (Remaining/Total): 25 mcg (--/--) Route: oral Frequency: Daily Rate/Duration: -- / -- Admin Instructions: Administer on an empty stomach, preferably 30 minutes before breakfast. Take 4 hours apart from antacids, iron and calcium products. Timestamps Action Dose Route Other Information 06/12/19 0514 Given 25 mcg oral Performed by: Ashley Beatty RN pantoprazole DR (PROTONIX) extended release tablet 40 mg [[id number]] Ordering Provider: Berny Lobo MD Status: Dispensed Ordered On: 06/09/19427 Start: 06/09/19 09 Dose (Remaining/Total): 40 mg (--/--) Route: oral Frequency: Daily Rate/Duration: -- / -- Admin Instructions: Do not crush, chew, cut, dissolve, open or otherwise manipulate tablet/capsule. Timestamps Action Dose Route Other Information 06/12/19851 Given 40 mg oral Performed by: Stas Robbins RN sodium chloride 0.9% flush 0.5-20 mL [[id number]] Ordering Provider: Ravi Otero MD Status: Verified Ordered On: 06/09/1958 Start: 06/09/19129 Dose (Remaining/Total): 0.5-20 mL (--/--) Route: intra-catheter Frequency: Every 8 hours scheduled Rate/Duration: -- / -- Admin Instructions: Flush volume based on line type and size. Timestamps Action Dose Route Other Information 06/11/192050 Given 10 mL intra-catheter Performed by: Ashley Beatty RN sodium chloride 0.9% flush 0.5-20 mL [[id number]] Ordering Provider: Ravi Otero MD Status: Verified Ordered On: 06/09/1958 Start: 06/09/1958 Dose (Remaining/Total): 0.5-20 mL (--/--) Route: intra-catheter Frequency: As needed Rate/Duration: -- / -- Admin Instructions: Flush volume based on line type and size. Flush before and after each use. (No admins recorded for this medication) polyethylene glycol (MIRALAX) packet 17 g [[id number]] Ordering Provider: Ravi Otero MD Status: Dispensed Ordered On: 06/09/1958 Start: 06/09/19899 Dose (Remaining/Total): 17 g (--/--) Route: oral Frequency: Daily Rate/Duration: -- / -- Timestamps Action Dose Route Other Information 06/12/19 0852 Given 17 g oral Performed by: Stas Robbins RN bisacodyl EC (DULCOLAX EC) tablet 10 mg [[id number]] Ordering Provider: Ravi Otero MD Status: Verified Ordered On: 06/09/1958 Start: 06/09/1958 Dose (Remaining/Total): 10 mg (--/--) Route: oral Frequency: Daily PRN Rate/Duration: -- / -- Admin Instructions: Do not crush, chew, cut, dissolve, open or otherwise manipulate tablet/capsule. (No admins recorded for this medication) bisacodyL (DULCOLAX) suppository 10 mg [[id number]] Ordering Provider: Ravi Otero MD Status: Verified Ordered On: 06/09/1958 Start: 06/09/1958 Dose (Remaining/Total): 10 mg (--/--) Route: rectal Frequency: Daily PRN Rate/Duration: -- / -- (No admins recorded for this medication) dextrose (GLUTOSE) 40 % gel 15 g [[id number]] Ordering Provider: Ravi Otero MD Status: Verified Ordered On: 06/09/1958 Start: 06/09/1958 Dose (Remaining/Total): 15 g (--/--) Route: oral Frequency: Every 15 min PRN Rate/Duration: -- / -- Admin Instructions: If patient [...] Call MD for each episode of hypoglycemia. MANAGER REGULATORY STATES GLUTOSE-15 CONTAINS GLUCOSE 40% W/W (50% W/V) (No admins recorded for this medication) dextrose (D10W) 10% bolus 250 mL [[id number]] Ordering Provider: Ravi Otero MD Status: Verified Ordered On: 06/09/1958 Start: 06/09/1958 Dose (Remaining/Total): 250 mL (--/--) Route: intravenous Frequency: Every 15 min PRN Rate/Duration: 1,000 mL/hr / 15 Minutes Admin Instructions: After treatment for hypoglycemia, recheck BG followed by treatment every 15 minutes until the BG is greater than 100 mg/dL. Then check BG 1 hour post treatment. If BG is less [id number] mg/dL, repeat Q15 minute BG checks and treatment. Call MD for each episode of hypoglycemia. (No admins recorded for this medication) glucagon injection 1 mg [[id number]] Ordering Provider: Ravi Otero MD Status: Verified Ordered On: 06/09/1958 Start: 06/09/1958 Dose (Remaining/Total): 1 mg (--/--) Route: intramuscular Frequency: Every 30 min PRN Rate/Duration: -- / 1 Minutes Admin Instructions: After Glucagon is administered, position [...] for each episode of hypoglycemia. (No admins recorded for this medication) insulin lispro (HumaLOG) injection 1-2 Units [[id number]] Ordering Provider: Ravi Otero MD Status: Verified Ordered On: 06/09/1958 Start: 06/09/19799 Dose (Remaining/Total): 1-2 Units (--/--) Route: subcutaneous Frequency: 3 times daily with meals Rate/Duration: -- / -- Admin Instructions: Blood Sugar Extra Low Dose meal time - PO patients 200 or less No Insulin 201 - 250 1 unit 251 - 299 2 units Greater than 299 Call MD for hyperglycemia management instructions Do NOT hold for NPO status. (No admins recorded for this medication) metoprolol (LOPRESSOR) injection 5 mg [[id number]] Ordering Provider: Dwayne Jacobsen MD Status: Completed (Past End Date/Time) Ordered On: 06/08/192227 Starts/Ends: 06/08/192228 - 06/08/192301 Dose (Remaining/Total): 5 mg (0/1) Route: intravenous Frequency: Once Rate/Duration: -- / 1 Minutes Line Med Link Info Comment Peripheral IV 06/08/19 18 G Left Antecubital 06/08/192300 by Pam Gill RN -- Timestamps Action Dose / Duration Route Other Information 06/08/192300 Given 5 mg 1 Minutes intravenous Performed by: Pam Gill RN Comments: stop time 2302 furosemide (LASIX) 10 mg/mL injection 40 mg [[id number]] Ordering Provider: Berny Lobo MD Status: Completed (Past End Date/Time) Ordered On: 06/09/19103 Starts/Ends: 06/09/19144 - 06/09/19 015 Dose (Remaining/Total): 40 mg (0/1) Route: intravenous Frequency: Once Rate/Duration: -- / 1 Minutes Admin Instructions: Room temperature only Timestamps Action Dose / Duration Route Other Information 06/09/19 014 Given 40 mg 1 Minutes intravenous Performed by: Sobia Zhu RN magnesium oxide (MAG-OX) tablet 800 mg [[id number]] Ordering Provider: Ravi Otero MD Status: Completed (Past End Date/Time) Ordered On: 06/09/19 030 Starts/Ends: 06/09/19 034 - 06/09/19 034 Dose (Remaining/Total): 800 mg (0/1) Route: oral Frequency: Once Rate/Duration: -- / -- Admin Instructions: 1 tablet = Magnesium oxide 400 mg = 241.3 mg elemental magnesium Timestamps Action Dose Route Other Information 06/09/19346 Given 800 mg oral Performed by: Sobia Zhu RN losartan (COZAAR) tablet 50 mg [[id number]] Ordering Provider: Ravi Otero MD Status: Dispensed Ordered On: 06/09/19328 Start: 06/09/19899 Dose (Remaining/Total): 50 mg (--/--) Route: oral Frequency: Daily Rate/Duration: -- / -- Timestamps Action Dose Route Other Information 06/12/19850 Given 50 mg oral Performed by: Stas Robbins RN aspirin chewable tablet 81 mg [[id number]] Ordering Provider: Ravi Otero MD Status: Dispensed Ordered On: 06/09/19332 Start: 06/09/19899 Dose (Remaining/Total): 81 mg (--/--) Route: oral Frequency: Daily Rate/Duration: -- / -- Timestamps Action Dose Route Other Information 06/12/19851 Given 81 mg oral Performed by: Stas Robbins RN rosuvastatin (CRESTOR) tablet 20 mg [[id number]] Ordering Provider: Ravi Otero MD Status: Dispensed Ordered On: 06/09/19334 Start: 06/09/19899 Dose (Remaining/Total): 20 mg (--/--) Route: oral Frequency: Daily Rate/Duration: -- / -- Timestamps Action Dose Route Other Information 06/12/19850 Given 20 mg oral Performed by: Stas Robbins RN furosemide (LASIX) 10 mg/mL injection 20 mg [[id number]] Ordering Provider: Ravi Otero MD Status: Dispensed Ordered On: 06/09/19428 Start: 06/09/19899 Dose (Remaining/Total): 20 mg (--/--) Route: intravenous Frequency: 2 times daily (for diuretics) Rate/Duration: -- / 1 Minutes Admin Instructions: Room temperature only Line Med Link Info Comment Peripheral IV 06/08/19 18 G Left Antecubital 06/09/19914 by Sasha Partida RN -- Timestamps Action Dose / Duration Route Other Information 06/12/19850 Given 20 mg 1 Minutes intravenous Performed by: Stas Robbins RN amiodarone (PACERONE) tablet 400 mg [[id number]] Ordering Provider: David Horn MD Status: Dispensed Ordered On: 06/09/19 1306 Starts/Ends: 06/09/19 1600 - 06/16/19 2359 Dose (Remaining/Total): 400 mg () Route: oral Frequency: 3 times daily Rate/Duration: -- / -- Timestamps Action Dose Route Other Information 06/12/19 0851 Given 400 mg oral Performed by: Stas Robbins RN carvediloL (COREG) tablet 6.25 mg [[id number]] Ordering Provider: David Horn MD Status: Dispensed Ordered On: 06/09/19 1308 Start: 06/09/19 1800 Dose (Remaining/Total): 6.25 mg (--/--) Route: oral Frequency: 2 times daily with meals (bkfst, dinner) Rate/Duration: -- / -- Timestamps Action Dose Route Other Information 06/12/19 0851 Given 6.25 mg oral Performed by: Stas Robbins RN ioversoL (OPTIRAY 350) syringe syringe 100 mL [[id number]] Ordering Provider: David Horn MD Status: Completed (Past End Date/Time) Ordered On: 06/09/191741 Starts/Ends: 06/09/191740 - 06/09/191747 Dose (Remaining/Total): 100 mL (0/1) Route: intravenous Frequency: Once in imaging Rate/Duration: -- / -- Line Med Link Info Comment Peripheral IV 06/08/19 18 G Left Antecubital 06/09/191747 by RT Reji -- Timestamps Action Dose Route Other Information 06/09/191747 Given 100 mL intravenous Performed by: RT Reji potassium chloride ER (KLOR-CON) extended release tablet 30 mEq [[id number]] Ordering Provider: Ravi Otero MD Status: Completed (Past End Date/Time) Ordered On: 06/10/19 011 Starts/Ends: 06/10/19 0200 - 06/10/19 0610 Dose (Remaining/Total): 30 mEq (0/2) Route: oral Frequency: Every 4 hours Rate/Duration: -- / -- Admin Instructions: Total dose = 60 mEq Do not crush, chew, cut, dissolve, open or otherwise manipulate tablet/capsule. Timestamps Action Dose Route Other Information 06/10/19 0610 Given 30 mEq oral Performed by: Maia Lee RN magnesium oxide (MAG-OX) tablet 400 mg [[id number]] Ordering Provider: Ravi Otero MD Status: Completed (Past End Date/Time) Ordered On: 06/10/19 0117 Starts/Ends: 06/10/190 - 06/10/19224 Dose (Remaining/Total): 400 mg (0/1) Route: oral Frequency: Once Rate/Duration: -- / -- Admin Instructions: 1 tablet = Magnesium oxide 400 mg = 241.3 mg elemental magnesium Timestamps Action Dose Route Other Information 06/10/19224 Given 400 mg oral Performed by: Maia Lee RN apixaban (ELIQUIS) tablet 10 mg [[id number]] Ordering Provider: David Horn MD Status: Dispensed Ordered On: 06/10/191457 Starts/Ends: 06/10/192099 - 06/17/192058 Dose (Remaining/Total): 10 mg (12/27) Route: oral Frequency: 2 times daily Rate/Duration: -- / -- Admin Instructions: Nurse to discontinue heparin infusion order and associated bolus at first administration of apixaban using ???order condition met??? order source Timestamps Action Dose Route Other Information 06/12/19 0851 Given 10 mg oral Performed by: Stas Robbins RN apixaban (ELIQUIS) tablet 5 mg [[id number]] Ordering Provider: David Horn MD Status: Verified Ordered On: 06/10/191457 Start: 06/17/192099 Dose (Remaining/Total): 5 mg (--/--) Route: oral Frequency: 2 times daily Rate/Duration: -- / -- Admin Instructions: Nurse to discontinue heparin infusion order and associated bolus at first administration of apixaban using ???order condition met??? order source (No admins recorded for this medication) acetaminophen (TYLENOL) tablet 650 mg [[id number]] Ordering Provider: David Horn MD Status: Dispensed Ordered On: 06/10/191551 Start: 03/27/20 1552 Dose (Remaining/Total): 650 mg (--/--) Route: oral Frequency: Every 6 hours PRN Rate/Duration: -- / -- Timestamps Action Dose Route Other Information 06/12/19520 Given 650 mg oral Performed by: Ashley Beatty RN cyclobenzaprine (FLEXERIL) tablet 5 mg [[id number]] Ordering Provider: Morgan Herrera MD Status: Verified Ordered On: 06/11/191105 Start: 06/11/191105 Dose (Remaining/Total): 5 mg (--/--) Route: oral Frequency: 3 times daily PRN Rate/Duration: -- / -- (No admins recorded for this medication) potassium chloride ER (KLOR-CON) extended release tablet 40 mEq [[id number]] Ordering Provider: Ravi Otero MD Status: Completed (Past End Date/Time) Ordered On: 06/12/19448 Starts/Ends: 06/12/19529 - 06/12/19513 Dose (Remaining/Total): 40 mEq (0/1) Route: oral Frequency: Once Rate/Duration: -- / -- Admin Instructions: Do not crush, chew, cut, dissolve, open or otherwise manipulate tablet/capsule. Timestamps Action Dose Route Other Information 06/12/19513 Given 40 mEq oral Performed by: Ashley Beatty RN magnesium oxide (MAG-OX) tablet 400 mg [[id number]] Ordering Provider: Ravi Otero MD Status: Completed (Past End Date/Time) Ordered On: 06/12/19448 Starts/Ends: 06/12/19529 - 06/12/19513 Dose (Remaining/Total): 400 mg (0/1) Route: oral Frequency: Once Rate/Duration: -- / -- Admin Instructions: 1 tablet = Magnesium oxide 400 mg = 241.3 mg elemental magnesium Timestamps Action Dose Route Other Information 06/12/19513 Given 400 mg oral Performed by: Ashley Beatty RN oxyCODONE (ROXICODONE) tablet 5 mg [[id number]] Ordering Provider: David Horn MD Status: Verified Ordered On: 06/12/19915 Start: 06/12/19915 Dose (Remaining/Total): 5 mg (--/--) Route: oral Frequency: Every 4 hours PRN Rate/Duration: -- / -- (No admins recorded for this medication) amiodarone (PACERONE) tablet 200 mg [[id number]] Ordering Provider: David Horn MD Status: Sent Ordered On: 06/12/19934 Start: 06/17/19899 Dose (Remaining/Total): 200 mg (--/--) Route: oral Frequency: Daily Rate/Duration: -- / -- (No admins recorded for this medication) * Plan of Care - Stas Robbins RN - 06/12/2019 9:25 AM CDT Goals: Clinical Goals for the Shift: pt will use call light as needed and pt will remain free of falls during the shift Summary: pt will use call light appropriately and safe checks are being done to make sure pt is safe Problem: Activity: Goal: Mobility will improve Outcome: [...] to fullest extent possible Outcome: Progressing Problem: Lack of Knowledge: Goal: Ability to state ways to decrease the risk of falls will improve Outcome: Progressing Problem: Safety: Goal: Will remain free from falls Outcome: Progressing Goal: Will remain free from injury from falls Outcome: Progressing Goal: Will remain free from falls and injury in home environment Outcome: Progressing Problem: Health Behavior: Goal: Understanding of discharge needs will improve Outcome: Progressing * Plan of Care - Ashley Beatty RN - 06/12/2019 12:23 AM CDT Problem: Activity: Goal: Mobility will [...] to fullest extent possible Outcome: Progressing Problem: Lack of Knowledge: Goal: Ability to state ways to decrease the risk of falls will improve Outcome: Progressing Problem: Safety: Goal: Will remain free from falls Outcome: Progressing Goal: Will remain free from injury from falls Outcome: Progressing Goal: Will remain free from falls and injury in home environment Outcome: Progressing Problem: Health Behavior: Goal: Understanding of discharge needs will improve Outcome: Progressing Goals: Clinical Goals for the Shift: Monitor VS, I & O, promote comfort and sleep hygiene. Summary: Sleeping well in bed. VSS as noted. Wound vac to left knee intact. No distress noted. * Plan of Care - Kailey Dalton MSW - 06/11/2019 3:44 PM CDT Pt recs are for SNF. Sw sent updated records to [place] for possible readmission back to their facility. Kailey Dalton SUPERVISOR DITCHING, Weekend Public Health Informatician For emergency needs from 4:31 p.m. - 7:59 a.m., please call the ED Public Health Informatician . For weekend needs from 8:00 a.m. - 4:30 p.m., please call the Weekend Social Work Staff . * Plan of Care - Stas Robbins RN - 06/11/2019 2:34 PM CDT Goals: Clinical Goals for the Shift: pt uses call light as needed and pt will remain free from falling Summary: pt is using call light appropriately and safe checks are being done to make sure pt is safe Problem: Activity: Goal: Mobility will improve Outcome: [...] to fullest extent possible Outcome: Progressing Problem: Lack of Knowledge: Goal: Ability to state ways to decrease the risk of falls will improve Outcome: Progressing Problem: Safety: Goal: Will remain free from falls Outcome: Progressing Goal: Will remain free from injury from falls Outcome: Progressing Goal: Will remain free from falls and injury in home environment Outcome: Progressing Problem: Health Behavior: Goal: Understanding of discharge needs will improve Outcome: Progressing * Plan of Care - Moriah López PT - 06/11/2019 1:22 PM CDT Problem: Transfers Goal: STG - Patient to transfer to and from sit to supine Description: From flat bed, Standby assistance Outcome: Progressing Goal: STG - Patient will transfer sit to and from stand Description: Standby assistance Outcome: Progressing * Plan of Care - Maia Lee RN - 06/10/2019 8:39 PM CDT Problem: Activity: Goal: Mobility will [...] to fullest extent possible Outcome: Progressing Problem: Lack of Knowledge: Goal: Ability to state ways to decrease the risk of falls will improve Outcome: Progressing Problem: Safety: Goal: Will remain free from falls Outcome: Progressing Goal: Will remain free from injury from falls Outcome: Progressing Goal: Will remain free from falls and injury in home environment Outcome: Progressing Problem: Health Behavior: Goal: Understanding of discharge needs will improve Outcome: Progressing Goals: Clinical Goals for the Shift: VSS, therapeutic lab values, increased sleep hygiene, pain managment,chart I and O of wound vac for knee Summary: VSS, lab values not therapeutic, sleep hygiene increased, pain managed with oxy and tylenol, wound vac did not yield any drainage * Plan of Care - Yarelis Keys OT - 06/10/2019 4:42 PM CDT Problem: Dressings Lower Extremities Goal: STG - Patient to complete lower body dressing Description: With min A using appropriate LH DME prn. Outcome: Progressing Problem: Grooming Goal: STG - Patient will complete grooming Description: Task at sink level for 5 min. C/ spvn and <2 seated rest breaks Outcome: Progressing Problem: Toileting Goal: STG - Patient will complete toileting tasks with Description: C/ min A Outcome: Progressing Problem: Transfers Goal: STG - Patient will perform toilet transfer Description: To standard toilet c/ min A Outcome: Progressing Problem: OT Misc Goal: OT LTG - Misc 1 Description: Pt. Will be mod I or better and safe with basic ADL self care and functional t/f. Outcome: Progressing Goal: OT LTG - Misc 2 Description: Pt. Will tolerate 10 min. Of ADL retrieval and functional mobility safely with spvn. Outcome: Progressing * Plan of Care - Sasha Partida RN - 06/10/2019 1:51 PM CDT Goals: Clinical Goals for the Shift: VSS, monitor respiratory status, administer lasix Summary:VSS, pt respiratory status removed, lasix given per order * Hospital Course - David Horn MD - 06/10/2019 12:33 PM CDT #Submassive PE - provoked PE in setting of poor mobilization following left hip injury; on warfarinat home; INR=3.0 this admission. Repeat CTPE with bilateral PE in all primary pulmonary arteries and all lung segments (see CTPE from 06/08). Troponin trending down after admission. Stopped warfarin and started heparin gtt then transitioned to eliquis prior to discharge. ?? #Atrial fibrillation /w RVR - manifesting as SOB, not palpitations; blood pressure stable; patient received 3x metoprolol 5mg IV, with rate from 140s -> 110s; possibly related to new or active PE and volume overload. Started amiodarone PO 400 TID load and with plan for 400 BID for two weeks at time of dispo then 200 every day after. Carvedilol reduced in setting of acute CHF exacerbation from 25 BID to 6.25 BID. Rate controlled on this regiment prior to discharge. INR therapeutic 3 on admission. Warfarin held and heparin gtt started then converted to eliquis prior to discharge. ?? #NSTEMI -??EKG with TWI in anterior leads, unlikely to be evolving intracoronary event given troponin trending down but troponin more elevated than would be expected from demand. S/p ASA loading in ED; trop peak at 6.34; noted to trend down to 2.97. continued ASA, statin. Recommending outpatient [facility]. ?? #Acute on chronic HFrEF??- symptoms of volume overload, possibley related to poor filling??of ventricles in setting of a fib/w RVR but LVEF significantly decreased at 38% on 05/30/19 from 51% in 01/01and active PE. Lasix 20mg IV for volume overload. Transitioned to PO regiment of 20 PO QD at dispo.Carvediolol started at 6.25 BID in setting of acute CHF exacerbation. Continued losartan 50mg PO Qday ?? #T2DM - last A1c= 6.5; on metformin at home. LDSSI while inpatient. ?? #Hypothyroidism: TSH elevated 7.49 on admission. Suspected euthyroid sick syndrome in setting of acute illness. Continued levothyroxine 25mcg Qday. Recommend follow up in 6 weeks. * Provider Query - Anna Chester RN - 06/10/2019 6:32 AM CDT Please clarify the condition you are evaluating, treating or monitoring and document in the medicalrecord and the form below. Indicate Present on Admission status. __X__ Acute blood loss anemia ____ Chronic blood loss anemia ____ Acute blood loss anemia on baseline chronic anemia ____ Anemia due to Chemotherapy ____ Anemia due to Chronic Kidney Disease (CKD) ____ Anemia in Neoplastic disease ____ Anemia of other chronic disease (specify below) ____ Pernicious anemia ____ Iron deficiency anemia ____ Precipitous drop in Hemoglobin or Hematocrit ____ Findings clinically insignificant ____ Other (specify below) ____ Clinically unable to determine Clinical Indicators/Treatments: Ref. Range 06/08/2019 17:10 06/08/2019 21:22 06/10/2019 00:22 Hgb Latest Ref Range: 11.9 - 15.5 g/dL 8.6 (L) 8.5 (L) 8.2 (L) Hct Latest Ref Range: 35.6 - 45.5 % 28.3 (L) 28.6 (L) 27.3 (L) Recent hx of L hip injury requiring surgery and provoked PE in setting of poor mobilizations, and cardiovascular collapse requiring lengthy stay in ICU for new CHF On warfarin for PE and afib 1UPRBC on 05/24 Serial CBC I/O Active T&S Provider Response: Suspect acute blood loss anemia as had been normal prior to surgery earlier this month. Will get B12/Foalte as MCV is borderline elevated. Use of terms such as likely, suspected, possible, or probable (associated with a specific diagnosisthat is being evaluated, monitored, or treated as if it exists) are acceptable and can be coded in the inpatient setting when documented at the time of discharge. This documentation will become part of the patient's medical record. Sincerely, Anna Chester Health Information Management * Provider Query - Anna Chester RN - 06/10/2019 6:27 AM CDT Please specify the type of Atrial Fibrillation in the medical record and on the form below. Indicate Present on Admission status. ____ Paroxysmal Atrial Fibrillation Defined as: Self- terminating or intermittent. Terminates spontaneously or with intervention within7 days of onset. ____ Permanent Atrial Fibrillation Defined as: Persistent or longstanding persistent atrial fibrillation where cardioversion cannot orwill not be performed or is not indicated. ____ Persistent Atrial Fibrillation Defined as: Does not terminate within 7 days or that requires repeat pharmacological or eletrical cardioversion ____ Persistent Long standing Atrial Fibrillation Defined as: Persistent and continuous atrial fibrillation lasting longer than one year. __X__ Chronic Atrial Fibrillation, other than listed above ____ Other, specify below ____ Clinically unable to determine Clinical Indicators/Treatments: 06/07 H&P: Presented with afib RVR (rates 140s)manifesting as SOB, received metoprolol 5mg IV x3 Hx afib on warfarin Provider Response: Chronic afib. Hx of previous cardioversion. Had been rhythm controlled on sotalol but developed persistent afib and was taken of sotalol and started on carvedilol in 01/01. Use of terms such as likely, suspected, possible, or probable (associated with a specific diagnosisthat is being evaluated, monitored, or treated as if it exists) are acceptable and can be coded in the inpatient setting when documented at the time of discharge. Source: [facility], 2nd quarter 2019, page 3. This documentation will become part of the patient's medical record. Sincerely, Anna [facility] Information Management * Plan of Care - Maia Lee RN - 06/10/2019 2:55 AM CDT Problem: Activity: Goal: Mobility will improve 06/10/2019 025 by Maia Lee RN Outcome: Progressing 06/10/2019 0246 by Maia Lee RN Outcome: Progressing Problem: Lack of Knowledge: Goal: Understanding of ways to prevent future skin breakdown will improve 06/10/2019 025 by Maia Lee RN Outcome: Progressing 06/10/2019 024 by Maia Lee RN Outcome: Progressing Goal: Ability to identify appropriate dietary choices will improve 06/10/2019 025 by Maia Lee RN Outcome: Progressing 06/10/2019 0246 by Maia Lee RN Outcome: Progressing Problem: Nutritional: Goal: Dietary intake will improve 06/10/2019 025 by Maia Lee RN Outcome: Progressing 06/10/2019 0246 by Maia Lee RN Outcome: Progressing Goal: Ability to maintain a balanced intake and output will improve 06/10/2019 025 by Maia Lee RN Outcome: Progressing 06/10/2019 0246 by Maia Lee RN Outcome: Progressing Problem: Skin Integrity: Goal: Risk for impaired skin integrity will decrease 06/10/2019 025 by Maia Lee RN Outcome: Progressing 06/10/2019 0246 by Maia Lee RN Outcome: Progressing Goal: Ability to demonstrate warm and dry skin will improve 06/10/2019 025 by Maia Lee RN Outcome: Progressing 06/10/2019 0246 by Maia Lee RN Outcome: Progressing Goal: Circulation will improve to fullest extent possible 06/10/2019254 by Maia Lee RN Outcome: Progressing 06/10/2019 0246 by Maia Lee RN Outcome: Progressing Problem: Lack of Knowledge: Goal: Ability to state ways to decrease the risk of falls will improve 06/10/2019 025 by Maia Lee RN Outcome: Progressing 06/10/2019 024 by Maia Lee RN Outcome: Progressing Problem: Safety: Goal: Will remain free from falls 06/10/2019254 by Maia Lee RN Outcome: Progressing 06/10/2019 024 by Maia Lee RN Outcome: Progressing Goal: Will remain free from injury from falls 06/10/2019254 by Maia Lee RN Outcome: Progressing 06/10/2019245 by Maia Lee RN Outcome: Progressing Goal: Will remain free from falls and injury in home environment 06/10/2019254 by Maia Lee RN Outcome: Progressing 06/10/2019245 by Maia Lee RN Outcome: Progressing Problem: Health Behavior: Goal: Understanding of discharge needs will improve 06/10/2019254 by Maia Lee RN Outcome: Progressing 06/10/2019245 by Maia Lee RN Outcome: Progressing Goals: Clinical Goals for the Shift: VSS, monitor respiratory status, increased sleep hygiene, pain managment, change dressing on leg Summary: VSS, respiratory status unchanged, sleep hygiene increased, pain not reported by patient * Plan of Care - Shira Noland RN - 06/09/2019 3:54 PM CDT Initial interview not yet complete. Patient not available at this time. 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 [phone] * Plan of Care - Sasha Partida RN - 06/09/2019 3:18 PM CDT Goals: Clinical Goals for the Shift: test for respiratory pathogens, VSS, monitor heparin gtt Summary: awaiting respiratory results, VSS, heparin gtt titrated per PTT results * Plan of Care - Sobia Zhu RN - 06/09/2019 2:57 AM CDT Problem: Activity: Goal: Mobility will [...] to fullest extent possible Outcome: Progressing Problem: Lack of Knowledge: Goal: Ability to state ways to decrease the risk of falls will improve Outcome: Progressing Problem: Safety: Goal: Will remain free from falls Outcome: Progressing Goal: Will remain free from injury from falls Outcome: Progressing Goal: Will remain free from falls and injury in home environment Outcome: Progressing Problem: Activity: Goal: Mobility will [...] to fullest extent possible Outcome: Progressing Problem: Lack of Knowledge: Goal: Ability to state ways to decrease the risk of falls will improve Outcome: Progressing Problem: Safety: Goal: Will remain free from falls Outcome: Progressing Goal: Will remain free from injury from falls Outcome: Progressing Goal: Will remain free from falls and injury in home environment Outcome: Progressing Goals: Complete admission, monitor VS, monitor I/Os Summary: VSS, no complaints of pain, admission completed * ED Procedure Note - Pascale Santos MD - 06/08/2019 10:15 PM CDT Associated Order(s): Critical Care Procedure Critical Care Performed by: Pascale Santos MD Authorized by: Pascale Santos MD Critical care provider statement: As reflected in the history, physical exam, orders, notes, and/or MDM, I was personally present while the patient was critically ill and provided critical care services for approximately 40 minutes, excluding time involved in separately billable procedures. Critical care was necessary to treat or prevent imminent or life-threatening deterioration of the following condition(s): atrial fibrillation hypoxic respiratory failure Critical care was time spent by me providing the following: continuous telemetry, continuous pulse oximetry, interpretation of bedside monitors, imaging, and arterial/venous lab draws, serial bedside patient exams and serial laboratory checks initiation of rate controlling agent supplemental oxygen initiation of anti-platelet agents I provided emergent necessary critical care medicine [...] patient to a continuous cardiac monitored bed. Pascale Santos MD 06/12/19 2216 Pascale Santos MD 06/15/19 1229 * ED Procedure Note - Pascale Santos MD - 06/08/2019 7:16 PM CDT Associated Order(s): ECG 12 lead Procedure ECG 12 lead Date/Time: 06/08/2019 7:16 PM Performed by: Pascale Santos MD Authorized by: Beau Eldridge MD Rate: ECG rate: 117 ECG rate assessment: tachycardic Rhythm: Rhythm: atrial fibrillation Ectopy: Ectopy: none QRS: QRS axis: Normal Conduction: Conduction: normal ST segments: ST segments: Normal T waves: T waves: flattening and inverted Inverted: V2, V3, V4, V5 and V6 Other findings: Other findings: low voltage Previous ECG: Previous ECG: Compared to current Similarity: Changes noted Recommended Follow-up: Recommended follow up: further workup in the ED Pascale Santos MD 06/08/191916 * ED Pre-Arrival Note - Sherrell Portillo, ARMANI - 06/08/2019 2:09 PM CDT Pre-Arrival Note Pt called in by video presentation operator office. Pt coming from rehab, s/p knee surgery with a complicated hospital course with development of a PE and new heart failure. In the last few days pt has had increasein SOB. Coming for eval. Sherrell Portillo RN documented in this encounter Plan of Treatment Not on file documented as of this encounter Procedures Procedure Name Priority Date/Time Associated Diagnosis Comments POCT GLUCOSE DEVICE Routine 06/13/2019 1 2:03 PM CDT POCT GLUCOSE DEVICE Routine 06/13/2019 7 :55 AM CDT DIFFERENTIAL AUTO Routine 06/12/2019 9:0 7 PM CDT CBC WITH AUTO DIFFERENTIAL Routine 06/12/2019 9:07 PM CDT PHOSPHORUS Routine 06/12/2019 9:07 PM CDT MAGNESIUM Routine 06/12/2019 9:07 PM CDT BASIC METABOLIC PANEL Routine 06/12/2019 9:07 PM CDT POCT GLUCOSE DEVICE Routine 06/12/2019 5 :03 PM CDT POCT GLUCOSE DEVICE Routine 06/12/2019 1 1:54 AM CDT POCT GLUCOSE DEVICE Routine 06/12/2019 7 :56 AM CDT DIFFERENTIAL AUTO STAT 06/12/2019 4:5 1 AM CDT CBC WITH AUTO DIFFERENTIAL STAT 06/12/2019 4:51 AM CDT PROTIME-INR STAT 06/12/2019 4:51 AM CDT DIFFERENTIAL AUTO Routine 06/12/2019 1:3 0 AM CDT CRITICAL RESULT CALLBACK HEMATOLOGY Routine 06/12/2019 1:30 AM CDT CBC WITH AUTO DIFFERENTIAL Routine 06/12/2019 1:30 AM CDT PROTIME-INR Routine 06/12/2019 1:30 AM CDT PHOSPHORUS Routine 06/12/2019 1:30 AM CDT MAGNESIUM Routine 06/12/2019 1:30 AM CDT BASIC METABOLIC PANEL Routine 06/12/2019 1:30 AM CDT POCT GLUCOSE DEVICE Routine 06/11/2019 5 :33 PM CDT POCT GLUCOSE DEVICE Routine 06/11/2019 1 1:27 AM CDT POCT GLUCOSE DEVICE Routine 06/11/2019 8 :07 AM CDT DIFFERENTIAL AUTO Routine 06/11/2019 12: 45 AM CDT CBC WITH AUTO DIFFERENTIAL Routine 06/11/2019 12:45 AM CDT PROTIME-INR Routine 06/11/2019 12:45 AM CDT CRP (ACUTE PHASE) Routine 06/11/2019 12: 45 AM CDT PHOSPHORUS Routine 06/11/2019 12:45 AM CDT MAGNESIUM Routine 06/11/2019 12:45 AM CDT BASIC METABOLIC PANEL Routine 06/11/2019 12:45 AM CDT POCT GLUCOSE DEVICE Routine 06/10/2019 8 :11 PM CDT POCT GLUCOSE DEVICE Routine 06/10/2019 5 :15 PM CDT ERYTHROCYTE SEDIMENTATION RATE Timed 06/10/2019 4:40 PM CDT XR KNEE LEFT 1 OR 2 VIEWS ED Urgent/IP Urgent 06/10/2019 4:04 PM CDT POCT GLUCOSE DEVICE Routine 06/10/2019 1 1:59 AM CDT FOLATE Timed 06/10/2019 11:12 AM CDT POCT GLUCOSE DEVICE Routine 06/10/2019 7 :46 AM CDT DIFFERENTIAL AUTO Routine 06/10/2019 12: 22 AM CDT IRON PROFILE W/ IBC Routine 06/10/2019 1 2:22 AM CDT CBC WITH AUTO DIFFERENTIAL Routine 06/10/2019 12:22 AM CDT APTT Routine 06/10/2019 12:22 AM CDT PROTIME-INR Routine 06/10/2019 12:22 AM CDT CRP (ACUTE PHASE) Routine 06/10/2019 12: 22 AM CDT PHOSPHORUS Routine 06/10/2019 12:22 AM CDT MAGNESIUM Routine 06/10/2019 12:22 AM CDT FERRITIN Routine 06/10/2019 12:22 AM CDT VITAMIN B12 Routine 06/10/2019 12:22 AM CDT BASIC METABOLIC PANEL Routine 06/10/2019 12:22 AM CDT POCT GLUCOSE DEVICE Routine 06/09/2019 8 :[address] CHEST PE W CONTRAST IP Routine 06/09/2019 5:48 PM CDT POCT GLUCOSE DEVICE Routine 06/09/2019 5 :24 PM CDT APTT STAT 06/09/2019 5:13 PM CDT TROPONIN I Timed 06/09/2019 1:26 PM CDT POCT GLUCOSE DEVICE Routine 06/09/2019 1 1:41 AM CDT APTT STAT 06/09/2019 10:08 AM CDT COVID-19 CORONAVIRUS RNA STAT 06/09/2019 8:30 AM CDT INFLUENZA A/B AND RSV PCR STAT 06/09/2019 8:30 AM CDT RESPIRATORY PATHOGEN PANEL STAT 06/09/2019 8:30 AM CDT POCT GLUCOSE DEVICE Routine 06/09/2019 7 :27 AM CDT TROPONIN I Timed 06/09/2019 7:22 AM CDT APTT STAT 06/09/2019 3:43 AM CDT HEPATIC FUNCTION PANEL STAT 06/09/2019 3:43 AM CDT TROPONIN I Timed 06/09/2019 1:23 AM CDT TSH Routine 06/09/2019 1:23 AM CDT T4, FREE Routine 06/09/2019 1:23 AM CDT HEPATIC FUNCTION PANEL Timed 06/09/2019 1:23 AM CDT POCT GLUCOSE DEVICE Routine 06/09/2019 1 :14 AM CDT POCT GLUCOSE DEVICE Routine 06/08/2019 1 1:53 PM CDT TROPONIN I Routine 06/08/2019 10:55 PM CDT AR CRITICAL CARE ILL/INJURED PATIENT INIT 30-74 MIN Routine 06/08/2019 10:15 PM CDT APTT STAT 06/08/2019 9:22 PM CDT PROTIME-INR STAT 06/08/2019 9:22 PM CDT CBC WITHOUT DIFFERENTIAL STAT 06/08/2019 9:22 PM CDT ECG 12-LEAD STAT 06/08/2019 7:16 PM CDT POCT GLUCOSE DEVICE Routine 06/08/2019 5 :13 PM CDT CRITICAL RESULT CALLBACK CARDIO CHEM STAT 06/08/2019 5:10 PM CDT DIFFERENTIAL AUTO STAT 06/08/2019 5:1 0 PM CDT PRO B-TYPE NATRIURETIC PEPTIDE STAT 06/08/2019 5:10 PM CDT CBC WITH AUTO DIFFERENTIAL STAT 06/08/2019 5:10 PM CDT TROPONIN I STAT 06/08/2019 5:10 PM CDT APTT STAT 06/08/2019 5:10 PM CDT PROTIME-INR STAT 06/08/2019 5:10 PM CDT PHOSPHORUS STAT 06/08/2019 5:10 PM CDT MAGNESIUM STAT 06/08/2019 5:10 PM CDT LIPID PANEL STAT 06/08/2019 5:10 PM CDT BASIC METABOLIC PANEL STAT 06/08/2019 5:10 PM CDT XR CHEST PA LATERAL 2 VIEWS ED 06/08/2019 4:53 PM CDT documented in this encounter Results * POCT glucose (06/13/2019 12:03 PM CDT) Glucose, POC 170 70 - 199 mg/dL [facility] Blood specimen (specimen) 06/13/2019 12:03 PM CDT 06/13/2019 12:03 PM CDT Ned Urbina MD LAB POCT ORDERABLES - [place] CE Final Result [facility] [place] [address] * POCT glucose (06/13/2019 7:55 AM CDT) Glucose, POC 164 70 - 199 mg/dL [facility] Blood specimen (specimen) 06/13/2019 7:55 AM CDT 06/13/2019 7:55 AM CDT us Ned Urbina MD LAB POCT ORDERABLES - [place] CE Final Result [facility] [place] [address] * Differential, auto (06/12/2019 9:07 PM CDT) Neutrophil abs 4.2 1.7 - 6.5 K/cumm [facility] Imm gran abs 0.0 0.0 - 0.1 K/cumm [facility] Lymphocyte abs 1.1 0.8 - 3.3 K/cumm [facility] Monocyte abs 0.5 0.2 - 0.8 K/cumm [facility] Eosinophil abs 0.1 0.0 - 0.5 K/cumm [facility] Basophil abs 0.0 0.0 - 0.1 K/cumm [facility] Neutrophil pct 71.5 % [facility] Comment: Interpretive Data Percent cell count reference ranges are not reported, since discordance with absolute values may lead to misinterpretation of CBC data. Current Interpretive Data was last revised on 2017. Imm gran pct 0.3 % [facility] Comment: Interpretive Data Percent cell count reference ranges are not reported, since discordance with absolute values may lead to misinterpretation of CBC data. Current Interpretive Data was last revised on 2017. Lymphocyte pct 18.2 % [facility] Comment: Interpretive Data Percent cell count reference ranges are not reported, since discordance with absolute values may lead to misinterpretation of CBC data. Current Interpretive Data was last revised on 2017. Monocyte pct 7.8 % [facility] Comment: Interpretive Data Percent cell count reference ranges are not reported, since discordance with absolute values may lead to misinterpretation of CBC data. Current Interpretive Data was last revised on 2017. Eosinophil pct 1.9 % [facility] Comment: Interpretive Data Percent cell count reference ranges are not reported, since discordance with absolute values may lead to misinterpretation of CBC data. Current Interpretive Data was last revised on 2017. Basophil pct 0.3 % [facility] Comment: Interpretive Data Percent cell count reference ranges are not reported, since discordance with absolute values may lead to misinterpretation of CBC data. Current Interpretive Data was last revised on 2017. Blood specimen (specimen) 06/12/2019 9:07 PM CDT 06/12/2019 10:32 PM CDT Ned Urbina MD LAB BLOOD ORDERABLES Final Result [facility] [place] [address] * (ABNORMAL) CBC with auto differential (06/12/2019 9:07 PM CDT) Pathologist [facility] WBC 5.9 3.8 - 9.9 K/cumm [facility] Hgb 8.4(L) 11.9 - 15.5 g/dL [facility] Hct 28.0(L) 35.6 - 45.5 % [facility] Plt 283 150 - 400 K/cumm [facility] MPV 10.5 9.1 - 12.3 fL [facility] RBC 2.79(L) 3.90 - 5.20 M/cumm [facility] MCV 100.4(H) 81.3 - 96.4 fL [facility] MCH 30.1 27.1 - 33.3 pg [facility] MCHC 30.0(L) 32.3 - 35.7 g/dL [facility] RDW CV 16.1(H) 11.1 - 14.9 % [facility] RDW SD 59.7(H) 35.7 - 48.1 fL [facility] NRBC abs 0.00 0.00 - 0.01 K/cumm [facility] Blood specimen (specimen) 06/12/2019 9:07 PM CDT 06/12/2019 10:32 PM CDT us Ned Urbina MD LAB BLOOD ORDERABLES Final Result Performing Organization Address City/[facility] Co de Phone Number [facility] Department [place] [address] * Phosphorus (06/12/2019 9:07 PM CDT) Pathologist [facility] Phosphorus, pl 2.4 2.3 - 4.5 mg/dL [facility] Blood specimen (specimen) 06/12/2019 9:07 PM CDT 06/12/2019 10:32 PM CDT Ned Urbina MD LAB BLOOD ORDERABLES Final Result [facility] [place] [address] * Magnesium (06/12/2019 9:07 PM CDT) Pathologist [facility] Magnesium 1.9 1.4 - 2.5 mg/dL [facility] Blood specimen (specimen) 06/12/2019 9:07 PM CDT 06/12/2019 10:32 PM CDT Ned Urbina MD LAB BLOOD ORDERABLES Final Result Performing Organization Address [facility] Co de Phone Number [facility] [place] [address] * Basic metabolic panel (06/12/2019 9:07 PM CDT) Pathologist [facility] Sodium 135 135 - 145 mmol/L [facility] Potassium, pl 4.2 3.3 - 4.9 mmol/L [facility] Chloride 99 97 - 110 mmol/L [facility] CO2 29 22 - 32 mmol/L [facility] Anion gap 7 2 - 15 mmol/L [facility] BUN 19 8 - 25 mg/dL [facility] Creatinine 0.69 0.60 - 1.10 mg/dL [facility] Glucose 174 70 - 199 mg/dL [facility] Comment: Interpretive Data Fasting glucose >/= [...] 2017. Calcium 8.8 8.5 - 10.3 mg/dL [facility] Blood specimen (specimen) 06/12/2019 9:07 PM CDT 06/12/2019 10:32 PM CDT us Ned Urbina MD LAB BLOOD ORDERABLES Final Result Performing Organization Address [facility] Co de Phone Number [facility] [place] [place] [address] * POCT glucose (06/12/2019 5:03 PM CDT) Glucose, POC 141 70 - 199 mg/dL [facility] Blood specimen (specimen) 06/12/2019 5:03 PM CDT 06/12/2019 5:03 PM CDT us Ned Urbina MD LAB POCT ORDERABLES - [place] CE Final Result Performing Organization Address [facility] de Phone Number [facility] [place] [address] * POCT glucose (06/12/2019 11:54 AM CDT) Glucose, POC 147 70 - 199 mg/dL [facility] Blood specimen (specimen) 06/12/2019 11:54 AM CDT 06/12/2019 11:54 AM CDT us Ned Urbina MD LAB POCT ORDERABLES - [place] CE Final Result Performing Organization Address [facility] Co de Phone Number [facility] [place] [place] [address] * POCT glucose (06/12/2019 7:56 AM CDT) Glucose, POC 152 70 - 199 mg/dL [facility] Blood specimen (specimen) 06/12/2019 7:56 AM CDT 06/12/2019 7:56 AM CDT us Ned Urbina MD LAB POCT ORDERABLES - [place] CE Final Result [facility] [place] [address] * Differential, auto (06/12/2019 4:51 AM CDT) Neutrophil abs 3.4 1.7 - 6.5 K/cumm [facility] Imm gran abs 0.0 0.0 - 0.1 K/cumm [facility] Lymphocyte abs 0.8 0.8 - 3.3 K/cumm [facility] Monocyte abs 0.4 0.2 - 0.8 K/cumm [facility] Eosinophil abs 0.1 0.0 - 0.5 K/cumm [facility] Basophil abs 0.0 0.0 - 0.1 K/cumm [facility] Neutrophil pct 71.9 % [facility] Comment: Interpretive Data Percent cell count reference ranges are not reported, since discordance with absolute values may lead to misinterpretation of CBC data. Current Interpretive Data was last revised on 2017. Imm gran pct 0.6 % [facility] Comment: Interpretive Data Percent cell count reference ranges are not reported, since discordance with absolute values may lead to misinterpretation of CBC data. Current Interpretive Data was last revised on 2017. Lymphocyte pct 17.6 % [facility] Comment: Interpretive Data Percent cell count reference ranges are not reported, since discordance with absolute values may lead to misinterpretation of CBC data. Current Interpretive Data was last revised on 2017. Monocyte pct 8.0 % [facility] Comment: Interpretive Data Percent cell count reference ranges are not reported, since discordance with absolute values may lead to misinterpretation of CBC data. Current Interpretive Data was last revised on 2017. Eosinophil pct 1.7 % [facility] Comment: Interpretive Data Percent cell count reference ranges are not reported, since discordance with absolute values may lead to misinterpretation of CBC data. Current Interpretive Data was last revised on 2017. Basophil pct 0.2 % [facility] Comment: Interpretive Data Percent cell count reference ranges are not reported, since discordance with absolute values may lead to misinterpretation of CBC data. Current Interpretive Data was last revised on 2017. Blood specimen (specimen) 06/12/2019 4:51 AM CDT 06/12/2019 5:23 AM CDT Ned Urbina MD LAB BLOOD ORDERABLES Final Result Performing Organization Address [facility] de Phone Number [facility] [place] [employer] [place] [address] * (ABNORMAL) CBC with auto differential (06/12/2019 4:51 AM CDT) WBC 4.8 3.8 - 9.9 K/cumm [facility] Hgb 8.0(L) 11.9 - 15.5 g/dL [facility] Hct 26.7(L) 35.6 - 45.5 % [facility] Plt 250 150 - 400 K/cumm [facility] MPV 10.3 9.1 - 12.3 fL [facility] RBC 2.76(L) 3.90 - 5.20 M/cumm [facility] MCV 96.7(H) 81.3 - 96.4 fL [facility] MCH 29.0 27.1 - 33.3 pg [facility] MCHC 30.0(L) 32.3 - 35.7 g/dL [facility] RDW CV 16.2(H) 11.1 - 14.9 % [facility] RDW SD 56.8(H) 35.7 - 48.1 fL [facility] NRBC abs 0.00 0.00 - 0.01 K/cumm [facility] Blood specimen (specimen) 06/12/2019 4:51 AM CDT 06/12/2019 5:23 AM CDT us Ned Urbina MD LAB BLOOD ORDERABLES Final Result Performing Organization Address [facility] Co de Phone Number [facility] [place] [place] [address] * (ABNORMAL) Protime-INR (06/12/2019 4:51 AM CDT) PT 50.2(H) 8.6 - 13.0 sec [facility] INR 4.5(H) 0.8 - 1.2 [facility] Comment: Interpretive data Oral anticoagulant therapeutic ranges: Venous thromboembolism prophylaxis or treatment: 2.0-3.0 CARDIOLOGY Standard range: 2.0-3.0 High-intensity range: 2.5-3.5 Refer to indication-specific guidelines for appropriate target ranges for prosthetic heart valve replacement. Current interpretive data was last revised on 2019. Blood specimen (specimen) 06/12/2019 4:51 AM CDT 06/12/2019 5:31 AM CDT Ned Urbina MD LAB BLOOD ORDERABLES Final Result Performing Organization Address City/[facility]/ZIP Co de Phone Number [facility] [place] [place] [address] * Critical Result Callback Hematology (06/12/2019 1:30 AM CDT) Date Notified [id number] [facility] Time Notified 322 [facility] TestName INR [facility] Called/Read Back Kevin Alcala [facility] Credentials RN [facility] Called By ANSHUL [facility] Blood specimen (specimen) 06/12/2019 1:30 AM CDT 06/12/2019 3:03 AM CDT us Ned Urbina MD LAB BLOOD ORDERABLES Final Result [facility] [address] * Differential, auto (06/12/2019 1:30 AM CDT) Neutrophil abs 3.6 1.7 - 6.5 K/cumm [facility] Imm gran abs 0.0 0.0 - 0.1 K/cumm [facility] Lymphocyte abs 1.0 0.8 - 3.3 K/cumm [facility] Monocyte abs 0.4 0.2 - 0.8 K/cumm [facility] Eosinophil abs 0.1 0.0 - 0.5 K/cumm [facility] Basophil abs 0.0 0.0 - 0.1 K/cumm [facility] Neutrophil pct 70.2 % [facility] Comment: Interpretive Data Percent cell count reference ranges are not reported, since discordance with absolute values may lead to misinterpretation of CBC data. Current Interpretive Data was last revised on 2017. Imm gran pct 0.4 % [facility] Comment: Interpretive Data Percent cell count reference ranges are not reported, since discordance with absolute values may lead to misinterpretation of CBC data. Current Interpretive Data was last revised on 2017. Lymphocyte pct 19.5 % [facility] Comment: Interpretive Data Percent cell count reference ranges are not reported, since discordance with absolute values may lead to misinterpretation of CBC data. Current Interpretive Data was last revised on 2017. Monocyte pct 7.4 % [facility] Comment: Interpretive Data Percent cell count reference ranges are not reported, since discordance with absolute values may lead to misinterpretation of CBC data. Current Interpretive Data was last revised on 2017. Eosinophil pct 2.1 % [facility] Comment: Interpretive Data Percent cell count reference ranges are not reported, since discordance with absolute values may lead to misinterpretation of CBC data. Current Interpretive Data was last revised on 2017. Basophil pct 0.4 % [facility] Comment: Interpretive Data Percent cell count reference ranges are not reported, since discordance with absolute values may lead to misinterpretation of CBC data. Current Interpretive Data was last revised on 2017. Blood specimen (specimen) 06/12/2019 1:30 AM CDT 06/12/2019 2:45 AM CDT us Ned Urbina MD LAB BLOOD ORDERABLES Final Result [facility] [place] [address] * (ABNORMAL) Protime-INR (06/12/2019 1:30 AM CDT) [facility] PT 56.6(H) 8.6 - 13.0 sec [facility] INR 5.1(C) 0.8 - 1.2 [facility] Comment: Interpretive data Oral anticoagulant therapeutic ranges: Venous thromboembolism prophylaxis or treatment: 2.0-3.0 CARDIOLOGY Standard range: 2.0-3.0 High-intensity range: 2.5-3.5 Refer to indication-specific guidelines for appropriate target ranges for prosthetic heart valve replacement. Current interpretive data was last revised on 2019. Blood specimen (specimen) 06/12/2019 1:30 AM CDT 06/12/2019 2:47 AM CDT Ned Urbina MD LAB BLOOD ORDERABLES Final Result [facility] [place] [address] * (ABNORMAL) CBC with auto differential (06/12/2019 1:30 AM CDT) [facility] WBC 5.1 3.8 - 9.9 K/cumm [facility] Hgb 7.7(L) 11.9 - 15.5 g/dL [facility] Hct 26.1(L) 35.6 - 45.5 % [facility] Plt 254 150 - 400 K/cumm [facility] MPV 10.4 9.1 - 12.3 fL [facility] RBC 2.65(L) 3.90 - 5.20 M/cumm [facility] MCV 98.5(H) 81.3 - 96.4 fL [facility] MCH 29.1 27.1 - 33.3 pg [facility] MCHC 29.5(L) 32.3 - 35.7 g/dL [facility] RDW CV 16.5(H) 11.1 - 14.9 % [facility] RDW SD 59.7(H) 35.7 - 48.1 fL [facility] NRBC abs 0.00 0.00 - 0.01 K/cumm [facility] Blood specimen (specimen) 06/12/2019 1:30 AM CDT 06/12/2019 2:45 AM CDT us Ned Urbina MD LAB BLOOD ORDERABLES Final Result Performing Organization Address City/[facility] Co de Phone Number [facility] [place] [place] [address] * Phosphorus (06/12/2019 1:30 AM CDT) Pathologist [facility] Phosphorus, pl 2.9 2.3 - 4.5 mg/dL [facility] Blood specimen (specimen) 06/12/2019 1:30 AM CDT 06/12/2019 2:45 AM CDT us Ned Urbina MD LAB BLOOD ORDERABLES Final Result Performing Organization Address City/[facility] Co de Phone Number [facility] [place] [place] [address] * Magnesium (06/12/2019 1:30 AM CDT) [facility] Magnesium 1.9 1.4 - 2.5 mg/dL [facility] Blood specimen (specimen) 06/12/2019 1:30 AM CDT 06/12/2019 2:45 AM CDT us Ned Urbina MD LAB BLOOD ORDERABLES Final Result Performing Organization Address City/[facility] [place] [address] * Basic metabolic panel (06/12/2019 1:30 AM CDT) [facility] Sodium 137 135 - 145 mmol/L [facility] Potassium, pl 3.7 3.3 - 4.9 mmol/L [facility] Chloride 103 97 - 110 mmol/L [facility] CO2 29 22 - 32 mmol/L [facility] Anion gap 5 2 - 15 mmol/L [facility] BUN 19 8 - 25 mg/dL [facility] Creatinine 0.61 0.60 - 1.10 mg/dL [facility] Glucose 139 70 - 199 mg/dL [facility] Comment: Interpretive Data Fasting glucose >/= [...] 2017. Calcium 8.8 8.5 - 10.3 mg/dL [facility] Blood specimen (specimen) 06/12/2019 1:30 AM CDT 06/12/2019 2:45 AM CDT us Ned Urbina MD LAB BLOOD ORDERABLES Final Result [facility] [place] [place] [address] * POCT glucose (06/11/2019 5:33 PM CDT) Glucose, POC 136 70 - 199 mg/dL [facility] Blood specimen (specimen) 06/11/2019 5:33 PM CDT 06/11/2019 5:33 PM CDT us Ned Urbina MD LAB POCT ORDERABLES - [place] CE Final Result [facility] [place] [place] [address] * POCT glucose (06/11/2019 11:27 AM CDT) Glucose, POC 186 70 - 199 mg/dL [facility] Blood specimen (specimen) 06/11/2019 11:27 AM CDT 06/11/2019 11:27 AM CDT us Ned Urbina MD LAB POCT ORDERABLES - [place] CE Final Result Performing Organization Address City/[facility] Co de Phone Number [facility] [place] [address] * POCT glucose (06/11/2019 8:07 AM CDT) Pathologist [facility] Glucose, POC 157 70 - 199 mg/dL [facility] Blood specimen (specimen) 06/11/2019 8:07 AM CDT 06/11/2019 8:07 AM CDT Ned Urbina MD LAB POCT ORDERABLES - [place] CE Final Result Performing Organization Address [facility] de Phone Number [facility] [place] [address] * Differential, auto (06/11/2019 12:45 AM CDT) [facility] Neutrophil abs 4.6 1.7 - 6.5 K/cumm [facility] Imm gran abs 0.0 0.0 - 0.1 K/cumm [facility] Lymphocyte abs 1.4 0.8 - 3.3 K/cumm [facility] Monocyte abs 0.6 0.2 - 0.8 K/cumm [facility] Eosinophil abs 0.1 0.0 - 0.5 K/cumm [facility] Basophil abs 0.0 0.0 - 0.1 K/cumm [facility] Neutrophil pct 68.3 % [facility] Comment: Interpretive Data Percent cell count reference ranges are not reported, since discordance with absolute values may lead to misinterpretation of CBC data. Current Interpretive Data was last revised on 2017. Imm gran pct 0.3 % [facility] Comment: Interpretive Data Percent cell count reference ranges are not reported, since discordance with absolute values may lead to misinterpretation of CBC data. Current Interpretive Data was last revised on 2017. Lymphocyte pct 21.3 % [facility] Comment: Interpretive Data Percent cell count reference ranges are not reported, since discordance with absolute values may lead to misinterpretation of CBC data. Current Interpretive Data was last revised on 2017. Monocyte pct 8.4 % [facility] Comment: Interpretive Data Percent cell count reference ranges are not reported, since discordance with absolute values may lead to misinterpretation of CBC data. Current Interpretive Data was last revised on 2017. Eosinophil pct 1.3 % [facility] Comment: Interpretive Data Percent cell count reference ranges are not reported, since discordance with absolute values may lead to misinterpretation of CBC data. Current Interpretive Data was last revised on 2017. Basophil pct 0.4 % [facility] Comment: Interpretive Data Percent cell count reference ranges are not reported, since discordance with absolute values may lead to misinterpretation of CBC data. Current Interpretive Data was last revised on 2017. Blood specimen (specimen) 06/11/2019 12:45 AM CDT 06/11/2019 12:47 AM CDT us Ned Urbina MD LAB BLOOD ORDERABLES Final Result Performing Organization Address City/[facility]/ZIP Co de Phone Number [facility] Department [facility] [place] [id number] * (ABNORMAL) CRP (acute phase) (06/11/2019 12:45 AM CDT) CRP 54.8(H) <=10.0 mg/L [facility] Blood specimen (specimen) 06/11/2019 12:45 AM CDT 06/11/2019 12:47 AM CDT Ned Urbina MD LAB BLOOD ORDERABLES Final Result [facility] [place] [address] * (ABNORMAL) Protime-INR (06/11/2019 12:45 AM CDT) [facility] PT 24.3(H) 8.6 - 13.0 sec [facility] INR 2.2(H) 0.8 - 1.2 [facility] Comment: Interpretive data Oral anticoagulant therapeutic ranges: Venous thromboembolism prophylaxis or treatment: 2.0-3.0 CARDIOLOGY Standard range: 2.0-3.0 High-intensity range: 2.5-3.5 Refer to indication-specific guidelines for appropriate target ranges for prosthetic heart valve replacement. Current interpretive data was last revised on 2019. Blood specimen (specimen) 06/11/2019 12:45 AM CDT 06/11/2019 12:49 AM CDT Ned Urbina MD LAB BLOOD ORDERABLES Final Result [facility] [place] [address] * (ABNORMAL) CBC with auto differential (06/11/2019 12:45 AM CDT) [facility] WBC 6.8 3.8 - 9.9 K/cumm [facility] Hgb 8.5(L) 11.9 - 15.5 g/dL [facility] Hct 29.0(L) 35.6 - 45.5 % [facility] Plt 275 150 - 400 K/cumm [facility] MPV 10.6 9.1 - 12.3 fL [facility] RBC 2.92(L) 3.90 - 5.20 M/cumm [facility] MCV 99.3(H) 81.3 - 96.4 fL [facility] MCH 29.1 27.1 - 33.3 pg [facility] MCHC 29.3(L) 32.3 - 35.7 g/dL [facility] RDW CV 16.4(H) 11.1 - 14.9 % [facility] RDW SD 59.5(H) 35.7 - 48.1 fL [facility] NRBC abs 0.02(H) 0.00 - 0.01 K/cumm [facility] Blood specimen (specimen) 06/11/2019 12:45 AM CDT 06/11/2019 12:47 AM CDT Ned Urbina MD LAB BLOOD ORDERABLES Final Result Performing Organization Address City/[facility] Co de Phone Number [facility] [place] [place] [address] * Phosphorus (06/11/2019 12:45 AM CDT) Pathologist [facility] Phosphorus, pl 2.5 2.3 - 4.5 mg/dL [facility] Blood specimen (specimen) 06/11/2019 12:45 AM CDT 06/11/2019 12:47 AM CDT us Ned Urbina MD LAB BLOOD ORDERABLES Final Result Performing Organization Address [facility] de Phone Number [facility] [place] [place] [address] * Magnesium (06/11/2019 12:45 AM CDT) [facility] Magnesium 1.8 1.4 - 2.5 mg/dL [facility] Blood specimen (specimen) 06/11/2019 12:45 AM CDT 06/11/2019 12:47 AM CDT Ned Urbina MD LAB BLOOD ORDERABLES Final Result Performing Organization Address [facility] [place] [address] * (ABNORMAL) Basic metabolic panel (06/11/2019 12:45 AM CDT) Sodium 134(L) 135 - 145 mmol/L [facility] Potassium, pl 3.9 3.3 - 4.9 mmol/L [facility] Chloride 100 97 - 110 mmol/L [facility] CO2 25 22 - 32 mmol/L [facility] Anion gap 9 2 - 15 mmol/L [facility] BUN 18 8 - 25 mg/dL [facility] Creatinine 0.60 0.60 - 1.10 mg/dL [facility] Glucose 154 70 - 199 mg/dL [facility] Comment: Interpretive Data Fasting glucose >/= [...] 2017. Calcium 8.8 8.5 - 10.3 mg/dL [facility] Blood specimen (specimen) 06/11/2019 12:45 AM CDT 06/11/2019 12:47 AM CDT us Nde Urbina MD LAB BLOOD ORDERABLES Final Result [facility] [place] [address] * POCT glucose (06/10/2019 8:11 PM CDT) [facility] Signature Glucose, POC 174 70 - 199 mg/dL [facility] Blood specimen (specimen) 06/10/2019 8:11 PM CDT 06/10/2019 8:11 PM CDT us Ned Urbina MD LAB POCT ORDERABLES - [place] CE Final Result Performing Organization Address City/[facility]/ZIP Co de Phone Number [facility] [place] [place] [address] * POCT glucose (06/10/2019 5:15 PM CDT) Glucose, POC 150 70 - 199 mg/dL [facility] Blood specimen (specimen) 06/10/2019 5:15 PM CDT 06/10/2019 5:15 PM CDT us Ned Urbina MD LAB POCT ORDERABLES - [place] CE Final Result Performing Organization Address [facility] Co de Phone Number [facility] [place] [address] * (ABNORMAL) Erythrocyte sedimentation rate (06/10/2019 4:40 PM CDT) Pathologist [facility] Erythrocyte sedimentation rate 36(H) 1 - 30 mm/hr [facility] Blood specimen (specimen) 06/10/2019 4:40 PM CDT 06/10/2019 5:50 PM CDT us Jenna Peña MD LAB BLOOD ORDERABLES Final Resul t Performing Organization Address [facility] de Phone Number [facility] [place] [address] * XR Knee Left 1 or 2 Views (06/10/2019 4:04 PM CDT) Anatomical Region Laterality Modality Lower Extremities, Knee Left Computed Radiography 06/10/2019 4:11 PM CDT Impressions 06/10/2019 4:11 PM CDT 1. ??Unchanged left knee endoprosthesis in expected position with decreased, yet persistent soft tissue gas superior to the patella. Electronically signed by: Ashanti Manrique MD Narrative 06/10/2019 4:11 PM CDT EXAMINATION: XR KNEE LEFT 1 OR 2 VIEWS HISTORY: ??Left distal femoral fracture status post arthroplasty FINDINGS: 3 views of the left knee submitted for interpretation comparison 05/25/2019. Left knee endoprosthesis is unchanged, in expected position. ??No acute periprosthetic fracture or lucency. ??Surgical skin theodore are unchanged. ??There is decreased soft tissue gas seen superior to the patella. ??Persistent mild soft tissue swelling about the knee. Procedure Note Hillary Manrique MD - 06/10/2019 EXAMINATION: XR KNEE LEFT 1 OR 2 VIEWS HISTORY: Left distal femoral fracture status post arthroplasty FINDINGS: 3 views of the left knee submitted for interpretation comparison 05/25/2019. Left knee endoprosthesis is unchanged, in expected position. No acute periprosthetic fracture or lucency. Surgical skin theodore are unchanged. There is decreased soft tissue gas seen superior to the patella. Persistent mild soft tissue swelling about the knee. IMPRESSION: 1. Unchanged left knee endoprosthesis in expected position with decreased, yet persistent soft tissue gas superior to the patella. Electronically signed by: Ashanti Manrique MD us Ned Urbina MD IMG XR PROCEDURES Final Re sult * POCT glucose (06/10/2019 11:59 AM CDT) Glucose, POC 146 70 - 199 mg/dL [facility] Blood specimen (specimen) 06/10/2019 11:59 AM CDT 06/10/2019 11:59 AM CDT Ned Urbina MD LAB POCT ORDERABLES - [place] CE Final Result Performing Organization Address [facility] Co de Phone Number [facility] [place] [place] [address] * Folate (06/10/2019 11:12 AM CDT) Folic acid 10.3 >=5.0 ng/mL [facility] Blood specimen (specimen) 06/10/2019 11:12 AM CDT 06/10/2019 1:24 PM CDT David Horn MD LAB BLOOD ORDERABLES Sri l Result Performing Organization Address [facility] Co de Phone Number [facility] [place] [address] * POCT glucose (06/10/2019 7:46 AM CDT) Glucose, POC 156 70 - 199 mg/dL [facility] Blood specimen (specimen) 06/10/2019 7:46 AM CDT 06/10/2019 7:46 AM CDT us Ned Urbina MD LAB POCT ORDERABLES - [place] [address] * (ABNORMAL) CRP (acute phase) (06/10/2019 12:22 AM CDT) Pathologist [facility] CRP 66.8(H) <=10.0 mg/L [facility] Blood specimen (specimen) 06/10/2019 12:22 AM CDT 06/10/2019 12:45 AM CDT us Ned Urbina MD LAB [place] [address] * (ABNORMAL) Iron profile w/ IBC (06/10/2019 12:22 AM CDT) [facility] Iron 33(L) 35 - 145 mcg/dL [facility] TIBC 378 250 - 400 mcg/dL [facility] Transferrin saturation 9(L) 20 - 50 % [facility] Blood specimen (specimen) 06/10/2019 12:22 AM CDT 06/10/2019 12:45 AM CDT us Ned Urbina MD LAB BLOOD ORDERABLES Final Result [facility] [place] [address] * Vitamin B12 (06/10/2019 12:22 AM CDT) Pathologist [facility] Vitamin B12 1,250 230 - 1,250 pg/mL [facility] Blood specimen (specimen) 06/10/2019 12:22 AM CDT 06/10/2019 12:45 AM CDT us Ned Urbina MD LAB BLOOD ORDERABLES Final Result Performing Organization Address City/[facility]/ZIP Co de Phone Number [facility] [place] [address] * Ferritin (06/10/2019 12:22 AM CDT) Pathologist [facility] Ferritin 132 15 - 150 ng/mL [facility] Blood specimen (specimen) 06/10/2019 12:22 AM CDT 06/10/2019 12:45 AM CDT us Ned Urbina MD LAB BLOOD ORDERABLES Final Result Performing Organization Address City/[facility]/ZIP Co de Phone Number [facility] [place] [address] * Differential, auto (06/10/2019 12:22 AM CDT) [facility] Neutrophil abs 4.6 1.7 - 6.5 K/cumm [facility] Imm gran abs 0.0 0.0 - 0.1 K/cumm [facility] Lymphocyte abs 1.6 0.8 - 3.3 K/cumm [facility] Monocyte abs 0.6 0.2 - 0.8 K/cumm [facility] Eosinophil abs 0.1 0.0 - 0.5 K/cumm [facility] Basophil abs 0.0 0.0 - 0.1 K/cumm [facility] Neutrophil pct 66.3 % [facility] Comment: Interpretive Data Percent cell count reference ranges are not reported, since discordance with absolute values may lead to misinterpretation of CBC data. Current Interpretive Data was last revised on 2017. Imm gran pct 0.4 % [facility] Comment: Interpretive Data Percent cell count reference ranges are not reported, since discordance with absolute values may lead to misinterpretation of CBC data. Current Interpretive Data was last revised on 2017. Lymphocyte pct 22.5 % [facility] Comment: Interpretive Data Percent cell count reference ranges are not reported, since discordance with absolute values may lead to misinterpretation of CBC data. Current Interpretive Data was last revised on 2017. Monocyte pct 9.0 % [facility] Comment: Interpretive Data Percent cell count reference ranges are not reported, since discordance with absolute values may lead to misinterpretation of CBC data. Current Interpretive Data was last revised on 2017. Eosinophil pct 1.2 % [facility] Comment: Interpretive Data Percent cell count reference ranges are not reported, since discordance with absolute values may lead to misinterpretation of CBC data. Current Interpretive Data was last revised on 2017. Basophil pct 0.6 % [facility] Comment: Interpretive Data Percent cell count reference ranges are not reported, since discordance with absolute values may lead to misinterpretation of CBC data. Current Interpretive Data was last revised on 2017. Blood specimen (specimen) 06/10/2019 12:22 AM CDT 06/10/2019 12:45 AM CDT Ned Urbina MD LAB BLOOD ORDERABLES Final Result [facility] [place] [address] * (ABNORMAL) aPTT (06/10/2019 12:22 AM CDT) aPTT 67(H) 25 - 37 sec [facility] Comment: Interpretive data Heparin therapeutic range: 60-90 seconds Range based on correlation with therapeutic heparin activity range of 0.3-0.7 units/ml. Current interpretive data was last revised on 2019. Blood specimen (specimen) 06/10/2019 12:22 AM CDT 06/10/2019 12:47 AM CDT Ned Urbina MD LAB BLOOD ORDERABLES Final Result Performing Organization Address [facility] de Phone Number [facility] [place] [address] * (ABNORMAL) Protime-INR (06/10/2019 12:22 AM CDT) [facility] PT 27.5(H) 8.6 - 13.0 sec [facility] INR 2.5(H) 0.8 - 1.2 [facility] Comment: Interpretive data Oral anticoagulant therapeutic ranges: Venous thromboembolism prophylaxis or treatment: 2.0-3.0 CARDIOLOGY Standard range: 2.0-3.0 High-intensity range: 2.5-3.5 Refer to indication-specific guidelines for appropriate target ranges for prosthetic heart valve replacement. Current interpretive data was last revised on 2019. Blood specimen (specimen) 06/10/2019 12:22 AM CDT 06/10/2019 12:47 AM CDT us Ned Urbina MD LAB BLOOD ORDERABLES Final Result Performing Organization Address [facility] de Phone Number [facility] [place] [address] * (ABNORMAL) CBC with auto differential (06/10/2019 12:22 AM CDT) [facility] WBC 6.9 3.8 - 9.9 K/cumm [facility] Hgb 8.2(L) 11.9 - 15.5 g/dL [facility] Hct 27.3(L) 35.6 - 45.5 % [facility] Plt 265 150 - 400 K/cumm [facility] MPV 10.3 9.1 - 12.3 fL [facility] RBC 2.83(L) 3.90 - 5.20 M/cumm [facility] MCV 96.5(H) 81.3 - 96.4 fL [facility] MCH 29.0 27.1 - 33.3 pg [facility] MCHC 30.0(L) 32.3 - 35.7 g/dL [facility] RDW CV 16.5(H) 11.1 - 14.9 % [facility] RDW SD 58.0(H) 35.7 - 48.1 fL [facility] NRBC abs 0.02(H) 0.00 - 0.01 K/cumm [facility] Blood specimen (specimen) 06/10/2019 12:22 AM CDT 06/10/2019 12:45 AM CDT Nde Urbina MD LAB BLOOD ORDERABLES Final Result Performing Organization Address City/[facility]/ZIP Co de Phone Number [facility] [place] [employer] [place] [address] * Phosphorus (06/10/2019 12:22 AM CDT) Phosphorus, pl 2.7 2.3 - 4.5 mg/dL [facility] Blood specimen (specimen) 06/10/2019 12:22 AM CDT 06/10/2019 12:45 AM CDT Ned Urbina MD LAB BLOOD ORDERABLES Final Result Performing Organization Address City/[facility] Co de Phone Number [facility] [place] [place] [address] * Magnesium (06/10/2019 12:22 AM CDT) Magnesium 1.8 1.4 - 2.5 mg/dL [facility] Blood specimen (specimen) 06/10/2019 12:22 AM CDT 06/10/2019 12:45 AM CDT Ned Urbina MD LAB BLOOD ORDERABLES Final Result [facility] [place] [address] * (ABNORMAL) Basic metabolic panel (06/10/2019 12:22 AM CDT) Sodium 135 135 - 145 mmol/L [facility] Potassium, pl 3.4 3.3 - 4.9 mmol/L [facility] Chloride 101 97 - 110 mmol/L [facility] CO2 26 22 - 32 mmol/L [facility] Anion gap 8 2 - 15 mmol/L [facility] BUN 14 8 - 25 mg/dL [facility] Creatinine 0.55(L) 0.60 - 1.10 mg/dL [facility] Glucose 141 70 - 199 mg/dL [facility] Comment: Interpretive Data Fasting glucose >/= [...] interpretive data was last revised 2017. Calcium 8.7 8.5 - 10.3 mg/dL [facility] Blood specimen (specimen) 06/10/2019 12:22 AM CDT 06/10/2019 12:45 AM CDT Ned Urbina MD LAB BLOOD ORDERABLES Final Result [facility] [place] [address] * (ABNORMAL) POCT glucose (06/09/2019 8:06 PM CDT) Glucose, POC 206(H) 70 - 199 mg/dL [facility] Blood specimen (specimen) 06/09/2019 8:06 PM CDT 06/09/2019 8:06 PM CDT Ned Urbina MD LAB POCT ORDERABLES - [place] CE Final Result [facility] [place] [address] * CT Chest PE W Contrast (06/09/2019 5:48 PM CDT) Anatomical Region Laterality Modality Body N/A Computed Tomogra phy 06/09/2019 6:05 PM CDT Addenda Addendum by Jorge Sotomayor MD on 07/14/2020 7:52 AM CDT Follow up chest CTA completed 08/09/19 (media). ??Ann KNOX, RN. Edited by: Ann Morillo Electronically signed by: Jorge Sotomayor M.D., MPH Impressions 06/09/2019 6:05 PM CDT 1. Bilateral pulmonary emboli extending all segments and all lobes of the main pulmonary arteries. This is associated with right heart enlargement. This may be seen in the setting of right heart strain. Please correlate with clinical, laboratory values and echocardiography, if clinically indicated to assess for massive or submassive pulmonary emboli. 2. Bilateral pleural effusions. Indeterminant left adrenal nodule. Recommend follow up of the Incidental adrenal nodule Additional Imaging in 3 Months with MRI. The Critical results were discussed with Sasha Partida RN by Dr. Sotomayor on 06/09/2019 at 1805 Electronically signed by: Jorge Sotomayor M.D., MPH Narrative 06/09/2019 6:05 PM CDT EXAMINATION: ??Computed tomographic examination of the chest, abdomen and pelvis was performed with intravenous contrast. TECHNIQUE: ??Computed tomographic examination of the chest with intravenous contrast using a standard protocol ??100 ml of Optiray 350 was administered for the examination. ?? HISTORY: ??Rule out pulmonary embolism COMPARISON:I do not have a prior study available for direct comparison FINDINGS: ??There is bilateral pulmonary emboli extending from the main pulmonary emboli into all segments bilaterally. This is associated with right heart enlargement. The right heart enlargement can be seen in the setting of right heart strain. Please correlate with the patient's vital signs and laboratory values and if indicated echocardiography. Bilateral pleural effusions are noted greater on the right than the left. There is mitral valve calcification compatible with mitral stenosis. Is no pericardial thickening or pericardial effusion. Minimal groundglass is noted in the lingula. This may represent a focal pneumonitis. No pulmonary nodules or masses that would suggest primary or metastatic disease. Healed granulomatous disease is present. Air Rosio there is no supraclavicular mediastinal or hilar lymphadenopathy. There is an indeterminate left adrenal nodule in the upper abdomen. Diffuse atherosclerotic disease of the aorta is present. Three-vessel coronary artery calcification present. Procedure Note Jorge Sotomayor MD - 06/09/2019 EXAMINATION: Computed tomographic examination of the chest, abdomen and pelvis was performed with intravenous contrast. TECHNIQUE: Computed tomographic examination of the chest with intravenous contrast using a standard protocol 100 ml of Optiray 350 was administered for the examination. HISTORY: Rule out pulmonary embolism COMPARISON:I do not have a prior study available for direct comparison FINDINGS: There is bilateral pulmonary emboli extending from the main pulmonary emboli into all segments bilaterally. This is associated with right heart enlargement. The right heart enlargement can be seen in the setting of right heart strain. Please correlate with the patient's vital signs and laboratory values and if indicated echocardiography. Bilateral pleural effusions are noted greater on the right than the left. There is mitral valve calcification compatible with mitral stenosis. Is no pericardial thickening or pericardial effusion. Minimal groundglass is noted in the lingula. This may represent a focal pneumonitis. No pulmonary nodules or masses that would suggest primary or metastatic disease. Healed granulomatous disease is present. Air Rosio there is no supraclavicular mediastinal or hilar lymphadenopathy. There is an indeterminate left adrenal nodule in the upper abdomen. Diffuse atherosclerotic disease of the aorta is present. Three-vessel coronary artery calcification present. IMPRESSION: 1. Bilateral pulmonary emboli extending all segments and all lobes of the main pulmonary arteries. This is associated with right heart enlargement. This may be seen in the setting of right heart strain. Please correlate with clinical, laboratory values and echocardiography, if clinically indicated to assess for massive or submassive pulmonary emboli. 2. Bilateral pleural effusions. Indeterminant left adrenal nodule. Recommend follow up of the Incidental adrenal nodule Additional Imaging in 3 Months with MRI. The Critical results were discussed with Sasha Partida RN by Dr. Sotomayor on 06/09/2019 at 1805 Electronically signed by: Jorge Sotomayor M.D., MPH Ned Urbina MD IMG CT PROCEDURES Edited R esult - Final * POCT glucose (06/09/2019 5:24 PM CDT) Glucose, POC 151 70 - 199 mg/dL [facility] Blood specimen (specimen) 06/09/2019 5:24 PM CDT 06/09/2019 5:24 PM CDT Ned Urbina MD LAB POCT ORDERABLES - [place] CE Final Result Performing Organization Address [facility] Co de Phone Number [facility] [place] [place] [address] * (ABNORMAL) aPTT (06/09/2019 5:13 PM CDT) aPTT 70(H) 25 - 37 sec [facility] Comment: Interpretive data Heparin therapeutic range: 60-90 seconds Range based on correlation with therapeutic heparin activity range of 0.3-0.7 units/ml. Current interpretive data was last revised on 2019. Blood specimen (specimen) 06/09/2019 5:13 PM CDT 06/09/2019 5:21 PM CDT Narrative [facility] - 06/09/2019 5:51 PM CDT Draw STAT PTT 6 hrs after initial heparin bolus, after each rate change, and every 6 hours until 2 consecutive PTTs are within therapeutic range. Once two consecutive PTT's are therapeutic (60-94.9 seconds), then draw PTT every AM until heparin is discontinued. us Pascale Santos MD LAB BLOOD ORDERABL ES Final Result Performing Organization Address [facility] Co de Phone Number [facility] [place] [place] [address] * (ABNORMAL) Troponin I (06/09/2019 1:26 PM CDT) Troponin I 2.97(C) 0.00 - 0.03 ng/mL [facility] Comment: Previous critical value noted 6 hours ago. Interpretive Data: Normal plasma Troponin I concentrations can reach 1 ng/mL in the first two weeks of life and slowly decrease to adult levels (<0.03 ng/mL) by the age of 3 months. > 3 months ??<0.03 ng/mL > or = 18 years Serial determinations are recommended for the diagnosis of myocardial infarction. ??Temporal rise and fall are consistent with myocardial infarction when at least one value is above the 99th percentile upper reference limit for Troponin assay. References: 1. Clin Chem 2013;59:6497-8424 2. Journal of the [place] [employer] 2012;60:1581-98 Current Interpretive Data Last Revised Date: 2017. Blood specimen (specimen) 06/09/2019 1:26 PM CDT 06/09/2019 1:46 PM CDT us Ned Urbina MD LAB BLOOD ORDERABLES Final Result [facility] [place] [address] * POCT glucose (06/09/2019 11:41 AM CDT) [facility] Glucose, POC 141 70 - 199 mg/dL [facility] Blood specimen (specimen) 06/09/2019 11:41 AM CDT 06/09/2019 11:41 AM CDT Ned Urbina MD LAB POCT ORDERABLES - [place] CE Final Result [facility] [place] [address] * (ABNORMAL) aPTT (06/09/2019 10:08 AM CDT) Pathologist [facility] aPTT 50(H) 25 - 37 sec [facility] Comment: Interpretive data Heparin therapeutic range: 60-90 seconds Range based on correlation with therapeutic heparin activity range of 0.3-0.7 units/ml. Current interpretive data was last revised on 2019. Blood specimen (specimen) 06/09/2019 10:08 AM CDT 06/09/2019 10:19 AM CDT Narrative [facility] - 06/09/2019 10:55 AM CDT Draw STAT PTT 6 hrs after initial heparin bolus, after each rate change, and every 6 hours until 2 consecutive PTTs are within therapeutic range. Once two consecutive PTT's are therapeutic (60-94.9 seconds), then draw PTT every AM until heparin is discontinued. Pascale Santos MD LAB BLOOD ORDERABL ES Final Result Performing Organization Address [facility] Co de Phone Number [facility] [place] [address] * COVID-19 Coronavirus RNA Nasopharyngeal (06/09/2019 8:30 AM CDT) Pathologist [facility] COVID-19 RNA Not Detected [facility] Comment: Interpretive Data Testing performed at [facility]. The 2019-Novel Coronavirus Assay (COVID-19) Real Time RT-PCR assay is for in vitro diagnostic use under FDA emergency use authorization only. A negative RT-PCR result does not preclude infection with COVID-19 and should not be used as the sole basis for treatment or other patient management decisions. Additional sample types have been validated according to CLIA regulations. ?? Current Interpretive Data was last revised on 2019. Nasopharyngeal 06/09/2019 8: 30 AM CDT 06/09/2019 10:50 AM CDT [facility]ative [facility] - 06/09/2019 4:20 PM CDT Does the patient meet the testing requirements described in the process instructions above?->Yes us Ned Urbina MD LAB MICROBIOLOGY - GENERAL ORDERABLES Final Result Performing Organization Address City/[facility] Co de Phone Number [facility] Department [place] [address] * Respiratory pathogen PCR Nasopharyngeal (06/09/2019 8:30 AM CDT) Adenovirus DNA Not Detected Not Detected [facility] Coronavirus 229E RNA Not Detected Not Detected [facility] Coronavirus HKU1 RNA Not Detected Not Detected [facility] Coronavirus NL63 RNA Not Detected Not Detected [facility] Coronavirus OC43 RNA Not Detected Not Detected [facility] Metapneumovirus RNA Not Detected Not Detected [facility] Rhinovirus/Enterov irus RNA Not Detected Not Detected [facility] Influenza A RNA Not Detected Not Detected [facility] Influenza B RNA Not Detected Not Detected [facility] Parainfluenza 1 RNA Not Detected Not Detected [facility] Parainfluenza 2 RNA Not Detected Not Detected [facility] Parainfluenza 3 RNA Not Detected Not Detected [facility] Parainfluenza 4 RNA Not Detected Not Detected [facility] RSV RNA Not Detected Not Detected [facility] B. pertussis DNA Not Detected Not Detected [facility] C. pneumoniae DNA Not Detected Not Detected [facility] M. pneumoniae DNA Not Detected Not Detected [facility] B. parapertussis DNA Not Detected Not Detected [facility] Comment: The [employer] FilmArray Respiratory Panel (RP2) assay is a multiplexed nucleic acid test capable of simultaneous qualitative detection and identification of multiple respiratory viral and bacterial nucleic acids. The following bacteria, viruses and virus subtypes can be identified using the FilmArray RP2 assay: Bordetella pertussis, Bordetella parapertussis, Chlamydophila pneumoniae, Mycoplasma pneumoniae, Adenovirus, Coronavirus HKU1, Coronavirus NL63, Coronavirus 229E, Coronavirus OC43, Influenza A, Influenza A subtype H1, Influenza A subtype H3, Influenza A subtype 2009 H1, Influenza B, Metapneumovirus, Parainfluenza 1, Parainfluenza 2, Parainfluenza 3, Parainfluenza 4, RSV, Rhinovirus/Enterovirus. Due to the genetic similarity between human Rhinovirus and Enterovirus, the FilmArray RP2 assay cannot reliably differentiate them. Coronavirus OC43 may cross-react with some isolates of Coronavirus HKU1. ??A dual positive result may be due to cross-reactivity or may indicate a co-infection. The detection and identification of specific viral and bacterial nucleic acids from individuals exhibiting signs and symptoms of a respiratory infection aids in the diagnosis of respiratory infection if used in conjunction with other clinical and epidemiological information. ??The results of this test should not be used as the sole basis for diagnosis, treatment, or other management decisions. ??Negative results in the setting of a respiratory illness may be due to infection with pathogens that are not detected by this test. ??Positive results do not rule out infection/co- infection with other organisms. ??The agent(s) detected by the FilmArray RP2 may not be the definite cause of disease. ??Additional testing (lab, imaging, etc.) may be necessary when evaluating a patient with possible respiratory tract infection. The FilmArray RP2 assay is FDA cleared for DIE ATTACHING MACHINE TENDER swabs. ??Additional sample types have been validated according to CLIA regulations. The performance characteristics of this assay have been determined by [facility]. Current interpretive data was last revised on 2018. Nasopharyngeal 06/09/2019 8: 30 AM CDT 06/09/2019 10:50 AM CDT Ned Urbina MD LAB MICROBIOLOGY - GENERAL ORDERABLES Final Result [facility] Department [place] [address] * Influenza A/B and RSV PCR Nasopharyngeal (06/09/2019 8:30 AM CDT) Pathologist [facility] Influenza A RNA Not Detected Not Detected [facility] Influenza B RNA Not Detected Not Detected [facility] RSV RNA Not Detected Not Detected [facility] Comment: Interpretive Data Testing performed by [facility] ([phone]). This test is performed using the [employer] Xpert Flu/RSV Assay. ??This is a multiplex, real-time reverse transcriptase PCR assay that detects influenza A, influenza B,and respiratory syncytial virus RNA. ??This assay has been cleared by the [place] Food and Drug Administration, and its performance characteristics have been verified by the [facility]. Interpretive Data last revised 2018 Nasopharyngeal 06/09/2019 8: 30 AM CDT 06/09/2019 8:50 AM CDT Ned Urbina MD LAB MICROBIOLOGY - GENERAL ORDERABLES Final Result Performing Organization Address City/[facility]/ZIP Co de Phone Number [facility] [place] [address] * POCT glucose (06/09/2019 7:27 AM CDT) Glucose, POC 140 70 - 199 mg/dL [facility] Blood specimen (specimen) 06/09/2019 7:27 AM CDT 06/09/2019 7:27 AM CDT us Ned Urbina MD LAB POCT ORDERABLES - DESTINEE CE Final Result Performing Organization Address [facility] de Phone Number [facility] [place] [address] * (ABNORMAL) Troponin I (06/09/2019 7:22 AM CDT) Troponin I 3.47(C) 0.00 - 0.03 ng/mL [facility] Comment: Previous critical value noted 5 hours ago. Interpretive Data: Normal plasma Troponin I concentrations can reach 1 ng/mL in the first two weeks of life and slowly decrease to adult levels (<0.03 ng/mL) by the age of 3 months. > 3 months ??<0.03 ng/mL > or = 18 years Serial determinations are recommended for the diagnosis of myocardial infarction. ??Temporal rise and fall are consistent with myocardial infarction when at least one value is above the 99th percentile upper reference limit for Troponin assay. References: 1. Clin Chem 2013;59:3391-4974 2. Journal of the [place] [employer] 2012;60:1581-98 Current Interpretive Data Last Revised Date: 2017. Blood specimen (specimen) 06/09/2019 7:22 AM CDT 06/09/2019 8:45 AM CDT us Ned Urbina MD LAB BLOOD ORDERABLES Final Result Performing Organization Address [facility] Co de Phone Number [facility] [place] [address] * (ABNORMAL) aPTT (06/09/2019 3:43 AM CDT) [facility] aPTT 58(H) 25 - 37 sec [facility] Comment: Interpretive data Heparin therapeutic range: 60-90 seconds Range based on correlation with therapeutic heparin activity range of 0.3-0.7 units/ml. Current interpretive data was last revised on 2019. Blood specimen (specimen) 06/09/2019 3:43 AM CDT 06/09/2019 3:58 AM CDT Narrative [facility] - 06/09/2019 4:20 AM CDT Draw STAT PTT 6 hrs after initial heparin bolus, after each rate change, and every 6 hours until 2 consecutive PTTs are within therapeutic range. Once two consecutive PTT's are therapeutic (60-94.9 seconds), then draw PTT every AM until heparin is discontinued. us Pascale Santos MD LAB BLOOD ORDERABL ES Final Result Performing Organization Address [facility] de Phone Number [facility] [place] [address] * (ABNORMAL) Hepatic function panel (06/09/2019 3:43 AM CDT) [facility] Bilirubin, total 1.3(H) 0.1 - 1.2 mg/dL [facility] Bilirubin, direct 0.4(H) 0.1 - 0.3 mg/dL [facility] Protein, pl 6.6 6.5 - 8.5 g/dL [facility] Albumin 3.1(L) 3.5 - 5.0 g/dL [facility] Alk phos 116 40 - 130 Units/L [facility] ALT 39 7 - 45 Units/L [facility] AST 50(H) 10 - 45 Units/L [facility] Blood specimen (specimen) 06/09/2019 3:43 AM CDT 06/09/2019 3:59 AM CDT us Ned Urbina MD LAB BLOOD ORDERABLES Final Result Performing Organization Address [facility] Co de Phone Number [facility] [place] [address] * (ABNORMAL) Hepatic function panel (06/09/2019 1:23 AM CDT) Bilirubin, total 1.1 0.1 - 1.2 mg/dL [facility] Bilirubin, direct 0.4(H) 0.1 - 0.3 mg/dL [facility] Protein, pl 6.3(L) 6.5 - 8.5 g/dL [facility] Albumin 2.9(L) 3.5 - 5.0 g/dL [facility] Alk phos 112 40 - 130 Units/L [facility] ALT 39 7 - 45 Units/L [facility] AST 51(H) 10 - 45 Units/L [facility] Blood specimen (specimen) 06/09/2019 1:23 AM CDT 06/09/2019 1:48 AM CDT us Ned Urbina MD LAB BLOOD ORDERABLES Final Result Performing Organization Address [facility] Co de Phone Number [facility] [place] [address] * (ABNORMAL) Troponin I (06/09/2019 1:23 AM CDT) Troponin I 4.36(C) 0.00 - 0.03 ng/mL [facility] Comment: Previous critical value noted 2 hours ago. Interpretive Data: Normal plasma Troponin I concentrations can reach 1 ng/mL in the first two weeks of life and slowly decrease to adult levels (<0.03 ng/mL) by the age of 3 months. > 3 months ??<0.03 ng/mL > or = 18 years Serial determinations are recommended for the diagnosis of myocardial infarction. ??Temporal rise and fall are consistent with myocardial infarction when at least one value is above the 99th percentile upper reference limit for Troponin assay. References: 1. Clin Chem 2013;59:8630-2411 2. Journal of the [place] [employer] 2012;60:1581-98 Current Interpretive Data Last Revised Date: 2017. Blood specimen (specimen) 06/09/2019 1:23 AM CDT 06/09/2019 1:48 AM CDT Ned Urbina MD LAB BLOOD ORDERABLES Final Result Performing Organization Address [facility] de Phone Number [facility] [place] [address] * T4, free (06/09/2019 1:23 AM CDT) Free T4 1.25 0.90 - 1.70 ng/dL [facility] Blood specimen (specimen) 06/09/2019 1:23 AM CDT 06/09/2019 1:48 AM CDT Result [facility] Pascale Santos MD LAB BLOOD ORDERABL ES Final Result Performing Organization Address [facility] de Phone Number [facility] [place] [address] * (ABNORMAL) TSH (06/09/2019 1:23 AM CDT) Thyroid Stimulating Hormone 7.49(H) 0.30 - 4.20 mcIUnit/mL [facility] Blood specimen (specimen) 06/09/2019 1:23 AM CDT 06/09/2019 1:48 AM CDT Pascale Santos MD LAB BLOOD ORDERABL ES Final Result Performing Organization Address [facility]/ZIP Co de Phone Number [facility] [place] [address] * POCT glucose (06/09/2019 1:14 AM CDT) Glucose, POC 139 70 - 199 mg/dL [facility] Blood specimen (specimen) 06/09/2019 1:14 AM CDT 06/09/2019 1:14 AM CDT us Ned Urbina MD LAB POCT ORDERABLES - DESTINEE CE Final Result Performing Organization Address [facility] Co de Phone Number [facility] [place] [address] * POCT glucose (06/08/2019 11:53 PM CDT) Glucose, POC 156 70 - 199 mg/dL [facility] Blood specimen (specimen) 06/08/2019 11:53 PM CDT 06/08/2019 11:53 PM CDT us Ned Urbina MD LAB POCT ORDERABLES - DESTINEE CE Final Result Performing Organization Address [facility] Co de Phone Number [facility] [place] [address] * (ABNORMAL) Troponin I (06/08/2019 10:55 PM CDT) [facility] Troponin I 5.01(C) 0.00 - 0.03 ng/mL [facility] Comment: Previous critical value noted 5 hours ago. Interpretive Data: Normal plasma Troponin I concentrations can reach 1 ng/mL in the first two weeks of life and slowly decrease to adult levels (<0.03 ng/mL) by the age of 3 months. > 3 months ??<0.03 ng/mL > or = 18 years Serial determinations are recommended for the diagnosis of myocardial infarction. ??Temporal rise and fall are consistent with myocardial infarction when at least one value is above the 99th percentile upper reference limit for Troponin assay. References: 1. Clin Chem 2013;59:9717-6863 2. Journal of the [place] [employer] 2012;60:1581-98 Current Interpretive Data Last Revised Date: 2017. Blood specimen (specimen) 06/08/2019 10:55 PM CDT 06/08/2019 11:10 PM CDT Narrative [facility] - 06/08/2019 11:51 PM CDT THE BJ COLLECTION LOCATION IS [facility] ED1-14 us Dwayne Jacobsen MD LAB BLOOD ORDERABLES Final Resul t [facility] [place] [address] * AR CRITICAL CARE ILL/INJURED PATIENT INIT 30-74 MIN (06/08/2019 10:15 PM CDT) Narrative Pascale Santos MD - 06/08/2019 10:15 PM CDT Pascale Santos MD ? 06/15/2019 12:29 PM Critical Care Performed by: Pascale Santos MD Authorized by: Pascale Santos MD Critical care provider statement: As reflected in the history, physical exam, orders, notes, and/or MDM, I was personally present while the patient was critically ill and provided critical care services for approximately 40 minutes, excluding time involved in separately billable procedures. ??Critical care was necessary to treat or prevent imminent or life-threatening deterioration of the following condition(s): ?? atrial fibrillation ?? hypoxic respiratory failure ??Critical care was time spent by me providing the following: ? continuous telemetry, continuous pulse oximetry, interpretation of bedside monitors, imaging, and arterial/venous lab draws, serial bedside patient exams and serial laboratory checks ?? initiation of rate controlling agent ?? supplemental oxygen ?? initiation of anti-platelet agents ?? I provided emergent necessary critical care [...] to a continuous cardiac monitored bed. us Pascale Santos MD IN CLINIC/BEDSIDE ORDERABLES Edited Result - Final * aPTT (06/08/2019 9:22 PM CDT) aPTT 27 25 - 37 sec [facility] Comment: Interpretive data Heparin therapeutic range: 60-90 seconds Range based on correlation with therapeutic heparin activity range of 0.3-0.7 units/ml. Current interpretive data was last revised on 2019. Blood specimen (specimen) 06/08/2019 9:22 PM CDT 06/08/2019 9:33 PM CDT Narrative [facility] - 06/08/2019 9:46 PM CDT Unless preformed in the last 48 hours. Draw prior to heparin administration. THE BJ COLLECTION LOCATION IS [facility] ED1-14 us Dwayne Jacobsen MD LAB BLOOD ORDERABLES Final Resul t [facility] [place] [address] * (ABNORMAL) Protime-INR (06/08/2019 9:22 PM CDT) PT 32.7(H) 8.6 - 13.0 sec [facility] INR 3.0(H) 0.8 - 1.2 [facility] Comment: Interpretive data Oral anticoagulant therapeutic ranges: Venous thromboembolism prophylaxis or treatment: 2.0-3.0 CARDIOLOGY Standard range: 2.0-3.0 High-intensity range: 2.5-3.5 Refer to indication-specific guidelines for appropriate target ranges for prosthetic heart valve replacement. Current interpretive data was last revised on 2019. Blood specimen (specimen) 06/08/2019 9:22 PM CDT 06/08/2019 9:33 PM CDT Narrative [facility] - 06/08/2019 9:46 PM CDT Unless preformed in the last 48 hours. Draw prior to heparin administration. THE COLLECTION LOCATION IS [facility] ED1-14 us Dwayne Jacobsen MD LAB BLOOD ORDERABLES Final Resul t [facility] [place] [address] * (ABNORMAL) CBC without differential (06/08/2019 9:22 PM CDT) [facility] WBC 7.9 3.8 - 9.9 K/cumm [facility] Hgb 8.5(L) 11.9 - 15.5 g/dL [facility] Hct 28.6(L) 35.6 - 45.5 % [facility] Plt 276 150 - 400 K/cumm [facility] MPV 10.6 9.1 - 12.3 fL [facility] RBC 2.93(L) 3.90 - 5.20 M/cumm [facility] MCV 97.6(H) 81.3 - 96.4 fL [facility] MCH 29.0 27.1 - 33.3 pg [facility] MCHC 29.7(L) 32.3 - 35.7 g/dL [facility] RDW CV 16.5(H) 11.1 - 14.9 % [facility] RDW SD 58.2(H) 35.7 - 48.1 fL [facility] NRBC abs 0.04(H) 0.00 - 0.01 K/cumm [facility] Blood specimen (specimen) 06/08/2019 9:22 PM CDT 06/08/2019 9:37 PM CDT Narrative [facility] - 06/08/2019 9:46 PM CDT Unless preformed in the last 48 hours. Draw prior to heparin administration. THE COLLECTION LOCATION IS [facility] ED1-14 us Dwayne Jacobsen MD LAB BLOOD ORDERABLES Final Resul t Performing Organization Address City/[facility]/ZIP Co de Phone Number [facility] [place] [address] * ECG 12-LEAD (06/08/2019 7:16 PM CDT) Narrative [facility] - 06/08/2019 7:16 PM CDT Pascale Santos MD ? 06/08/2019 ??7:17 PM ECG 12 lead Date/Time: 06/08/2019 7:16 PM Performed by: Pascale Santos MD Authorized by: Beau Eldridge MD Rate: ??ECG rate: ??117 ??ECG rate assessment: tachycardic ?? Rhythm: ??Rhythm: atrial fibrillation ?? Ectopy: ??Ectopy: none ?? QRS: ??QRS axis: ??Normal Conduction: ??Conduction: normal ?? ST segments: ??ST segments: ??Normal T waves: ??T waves: flattening and inverted ?Inverted: ??V2, V3, V4, V5 and V6 Other findings: ??Other findings: low voltage ?? Previous ECG: ??Previous ECG: ??Compared to current ??Similarity: ??Changes noted Recommended Follow-up: ??Recommended follow up: further workup in the ED ?? Procedure Note Pascale Santos MD - 06/08/2019 7:16 PM CDT Procedure ECG 12 lead Date/Time: 06/08/2019 7:16 PM Performed by: Pascale Santos MD Authorized by: Beau Eldridge MD Rate: ECG rate: 117 ECG rate assessment: tachycardic Rhythm: Rhythm: atrial fibrillation Ectopy: Ectopy: none QRS: QRS axis: Normal Conduction: Conduction: normal ST segments: ST segments: Normal T waves: T waves: flattening and inverted Inverted: V2, V3, V4, V5 and V6 Other findings: Other findings: low voltage Previous ECG: Previous ECG: Compared to current Similarity: Changes noted Recommended Follow-up: Recommended follow up: further workup in the ED Pascale Santos MD 06/08/191916 us Beau Eldridge MD ECG ORDERABLES Final Re sult [facility] * POCT glucose (06/08/2019 5:13 PM CDT) Glucose, POC 158 70 - 199 mg/dL [facility] Blood specimen (specimen) 06/08/2019 5:13 PM CDT 06/08/2019 5:13 PM CDT us Notinfile Unknown LAB POCT ORDERABLES - DEVICE F inal Result [facility] [place] [address] * (ABNORMAL) Lipid panel (06/08/2019 5:10 PM CDT) Cholesterol 65 30 - 199 mg/dL [facility] Comment: Interpretive Data Ages < [...] Data was last revised on 2017. Triglycerides 137 <=149 mg/dL [facility] Comment: Interpretive Data [...] Data was last revised on 2017. HDL 21(L) >=40 mg/dL [facility] Comment: Interpretive Data Ages < [...] was last revised on 2017. LDL, calculated 17 <=129 mg/dL [facility] Comment: Interpretive Data Ages < [...] was last revised on 2017. Non-HDL Cholesterol 44 mg/dL [facility] Comment: Interpretive Data Ages [...] last revised on 2017. Chol/HDL ratio 3 [facility] Blood specimen (specimen) 06/08/2019 5:10 PM CDT 06/08/2019 5:21 PM CDT us Beau Eldridge MD LAB BLOOD ORDERABLES Fin al Result Performing Organization Address City/[facility] Co de Phone Number [facility] [place] [address] * Critical result callback Cardio chemistry (06/08/2019 5:10 PM CDT) Date Notified [id number] [facility] Time Notified 17:57 [facility] Test name trop [facility] Called/Read Back Beau SMART Credentials MD [facility] Called By JACOB PEÑA Blood specimen (specimen) 06/08/2019 5:10 PM CDT 06/08/2019 5:21 PM CDT us Beau Eldridge MD LAB BLOOD ORDERABLES Fin al Result Performing Organization Address City/[facility] Co de Phone Number [facility] [place] [address] * Differential, auto (06/08/2019 5:10 PM CDT) Neutrophil abs 5.1 1.7 - 6.5 K/cumm [facility] Imm gran abs 0.0 0.0 - 0.1 K/cumm [facility] Lymphocyte abs 1.2 0.8 - 3.3 K/cumm [facility] Monocyte abs 0.6 0.2 - 0.8 K/cumm [facility] Eosinophil abs 0.1 0.0 - 0.5 K/cumm [facility] Basophil abs 0.0 0.0 - 0.1 K/cumm [facility] Neutrophil pct 72.0 % [facility] Comment: Interpretive Data Percent cell count reference ranges are not reported, since discordance with absolute values may lead to misinterpretation of CBC data. Current Interpretive Data was last revised on 2017. Imm gran pct 0.6 % [facility] Comment: Interpretive Data Percent cell count reference ranges are not reported, since discordance with absolute values may lead to misinterpretation of CBC data. Current Interpretive Data was last revised on 2017. [facility] 17.4 % [facility] Comment: Interpretive Data Percent cell count reference ranges are not reported, since discordance with absolute values may lead to misinterpretation of CBC data. Current Interpretive Data was last revised on 2017. Monocyte pct 8.8 % [facility] Comment: Interpretive Data Percent cell count reference ranges are not reported, since discordance with absolute values may lead to misinterpretation of CBC data. Current Interpretive Data was last revised on 2017. Eosinophil pct 0.9 % [facility] Comment: Interpretive Data Percent cell count reference ranges are not reported, since discordance with absolute values may lead to misinterpretation of CBC data. Current Interpretive Data was last revised on 2017. Basophil pct 0.3 % [facility] Comment: Interpretive Data Percent cell count reference ranges are not reported, since discordance with absolute values may lead to misinterpretation of CBC data. Current Interpretive Data was last revised on 2017. Blood specimen (specimen) 06/08/2019 5:10 PM CDT 06/08/2019 5:21 PM CDT Beau Eldridge MD LAB BLOOD ORDERABLES Fin al Result Performing Organization Address [facility] Co de Phone Number [facility] [place] [address] * (ABNORMAL) Protime-INR (06/08/2019 5:10 PM CDT) PT 31.7(H) 8.6 - 13.0 sec [facility] INR 2.9(H) 0.8 - 1.2 [facility] Comment: Interpretive data Oral anticoagulant therapeutic ranges: Venous thromboembolism prophylaxis or treatment: 2.0-3.0 CARDIOLOGY Standard range: 2.0-3.0 High-intensity range: 2.5-3.5 Refer to indication-specific guidelines for appropriate target ranges for prosthetic heart valve replacement. Current interpretive data was last revised on 2019. Blood specimen (specimen) 06/08/2019 5:10 PM CDT 06/08/2019 5:17 PM CDT Narrative [facility] - 06/08/2019 5:40 PM CDT THE COLLECTION LOCATION IS [facility] ED1-14 Beau Eldridge MD LAB BLOOD ORDERABLES Fin al Result Performing Organization Address [facility] de Phone Number [facility] [place] [address] * aPTT (06/08/2019 5:10 PM CDT) aPTT 30 25 - 37 sec [facility] Comment: Interpretive data Heparin therapeutic range: 60-90 seconds Range based on correlation with therapeutic heparin activity range of 0.3-0.7 units/ml. Current interpretive data was last revised on 2019. Blood specimen (specimen) 06/08/2019 5:10 PM CDT 06/08/2019 5:17 PM CDT Narrative [facility] - 06/08/2019 5:40 PM CDT THE COLLECTION LOCATION IS [facility] ED1[facility] Beau Eldridge MD LAB BLOOD ORDERABLES Fin al Result Performing Organization Address [facility] de Phone Number [facility] [place] [address] * Phosphorus (06/08/2019 5:10 PM CDT) Pathologist [facility] Phosphorus, pl 2.9 2.3 - 4.5 mg/dL [facility] Blood specimen (specimen) 06/08/2019 5:10 PM CDT 06/08/2019 5:21 PM CDT Narrative [facility] - 06/08/2019 5:53 PM CDT THE COLLECTION LOCATION IS [place] [id number] Beau Eldridge MD LAB BLOOD ORDERABLES Fin al Result Performing Organization Address [facility] de Phone Number [facility] Department [place] [address] * Magnesium (06/08/2019 5:10 PM CDT) [facility] Magnesium 1.8 1.4 - 2.5 mg/dL [facility] Blood specimen (specimen) 06/08/2019 5:10 PM CDT 06/08/2019 5:21 PM CDT Narrative [facility] - 06/08/2019 5:53 PM CDT THE [facility]CTION [facility]ATION [facility] Beau Eldridge MD LAB BLOOD ORDERABLES Fin al Result Performing Organization Address [facility] de Phone Number [facility] [place] [address] * (ABNORMAL) Pro B-type natriuretic peptide (06/08/2019 5:10 PM CDT) [facility] NT-proBNP 6,714(H) <=450 pg/mL [facility] Comment: Interpretive Comments: A. Dyspnea in Acute [...] et.al. Eur Heart J. 2006:27:330-337. 2. Shona BRAVO, Amie PATRICIO. J. AM Tiffanie Cardiol: Cardiovasc Imag. 2009;2: 216- 225. Interpretive Data Last Revised Date: 2017. Blood specimen (specimen) 06/08/2019 5:10 PM CDT 06/08/2019 5:21 PM CDT Narrative [facility] - 06/08/2019 5:53 PM CDT THE COLLECTION LOCATION IS [facility] ED1-14 Beau Eldridge MD LAB BLOOD ORDERABLES Fin al Result Performing Organization Address [facility] Co de Phone Number [facility] [place] [address] * (ABNORMAL) Troponin I (06/08/2019 5:10 PM CDT) [facility] Troponin I 6.34(C) 0.00 - 0.03 ng/mL [facility] Comment: Interpretive Data: Normal plasma Troponin I concentrations can reach 1 ng/mL in the first two weeks of life and slowly decrease to adult levels (<0.03 ng/mL) by the age of 3 months. > 3 months ??<0.03 ng/mL > or = 18 years Serial determinations are recommended for the diagnosis of myocardial infarction. ??Temporal rise and fall are consistent with myocardial infarction when at least one value is above the 99th percentile upper reference limit for Troponin assay. References: 1. Clin Chem 2013;59:9276-4162 2. Journal of the [place] [employer] 2012;60:1581-98 Current Interpretive Data Last Revised Date: 2017. Blood specimen (specimen) 06/08/2019 5:10 PM CDT 06/08/2019 5:21 PM CDT Narrative [facility] - 06/08/2019 5:58 PM CDT THE COLLECTION LOCATION IS [facility] ED1-14 Beau Eldridge MD LAB BLOOD ORDERABLES Fin al Result Performing Organization Address [facility]/ZIP Co de Phone Number [facility] [place] [address] * Basic metabolic panel (06/08/2019 5:10 PM CDT) [facility] Sodium 136 135 - 145 mmol/L [facility] Potassium, pl 4.1 3.3 - 4.9 mmol/L [facility] Chloride 103 97 - 110 mmol/L [facility] CO2 25 22 - 32 mmol/L [facility] Anion gap 8 2 - 15 mmol/L [facility] BUN 13 8 - 25 mg/dL [facility] Creatinine 0.61 0.60 - 1.10 mg/dL [facility] Glucose 160 70 - 199 mg/dL [facility] Comment: Interpretive Data Fasting glucose >/= [...] interpretive data was last revised 2017. Calcium 8.5 8.5 - 10.3 mg/dL [facility] Blood specimen (specimen) 06/08/2019 5:10 PM CDT 06/08/2019 5:21 PM CDT Narrative [facility] - 06/08/2019 5:53 PM CDT THE COLLECTION LOCATION IS [facility] ED1-14 us Beau Eldridge MD LAB BLOOD ORDERABLES [facility] al Result [facility] [place] [address] * (ABNORMAL) CBC with auto differential (06/08/2019 5:10 PM CDT) [facility] WBC 7.0 3.8 - 9.9 K/cumm [facility] Hgb 8.6(L) 11.9 - 15.5 g/dL [facility] Hct 28.3(L) 35.6 - 45.5 % [facility] Plt 255 150 - 400 K/cumm [facility] MPV 10.1 9.1 - 12.3 fL [facility] RBC 2.89(L) 3.90 - 5.20 M/cumm [facility] MCV 97.9(H) 81.3 - 96.4 fL [facility] MCH 29.8 27.1 - 33.3 pg [facility] MCHC 30.4(L) 32.3 - 35.7 g/dL [facility] RDW CV 16.6(H) 11.1 - 14.9 % [facility] RDW SD 59.4(H) 35.7 - 48.1 fL [facility] NRBC abs 0.03(H) 0.00 - 0.01 K/cumm [facility] Blood specimen (specimen) 06/08/2019 5:10 PM CDT 06/08/2019 5:21 PM CDT Narrative [facility] - 06/08/2019 5:26 PM CDT THE COLLECTION LOCATION IS [facility] ED1-14 us Beau Eldridge MD LAB BLOOD ORDERABLES Fin al Result Performing Organization Address City/State/[facility] Co de Phone Number [facility] [place] [address] * XR Chest Pa Lateral 2 Vw (06/08/2019 4:53 PM CDT) Anatomical Region Laterality Modality Body, Chest N/A Computed Radiogr aphy 06/08/2019 4:54 PM CDT Impressions 06/08/2019 4:54 PM CDT Comparison made with prior examination from 05/30/2019. In the interval, there is small bilateral pleural effusions have increased. In addition, there is diffuse reticulonodular interstitial opacities compatible with pulmonary edema. 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 Moderate cardiomegaly is present. This compilation of findings is compatible with congestive heart failure. Electronically signed by: Jorge Sotomayor M.D., MPH Narrative 06/08/2019 4:54 PM CDT EXAMINATION: 2 view chest radiograph Procedure Note Jorge Sotomayor MD - 06/08/2019 EXAMINATION: 2 view chest radiograph IMPRESSION: Comparison made with prior examination from 05/30/2019. In the interval, there is small bilateral pleural effusions have increased. In addition, there is diffuse reticulonodular interstitial opacities compatible with pulmonary edema. 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 Moderate cardiomegaly is present. This compilation of findings is compatible with congestive heart failure. Electronically signed by: Jorge Sotomayor M.D., MPH Beau Eldridge MD IMG XR PROCEDURES Final Result documented in this encounter Visit Diagnoses Diagnosis Pulmonary embolism (HCC)- Primary Other pulmonary embolism and infarction Atrial fibrillation, unspecified type (HCC) Acute on chronic congestive heart failure, unspecified heart failure type (HCC) documented in this encounter Administered Medications Inactive Administered Medications - up to 3 most recent administrations Medication Order MAR Action Action Date Dose Rate Site acetaminophen (TYLENOL) tablet 650 mg 650 mg, oral, Every 6 hours PRN, 1st line for pain, Starting on Thu06/10/19 at 1552 Given 06/12/2019 9:01 PM CDT 650 mg Given 06/12/2019 5:21 AM CDT 650 mg Given 06/11/2019 10:10 AM CDT 650 mg amiodarone (PACERONE) tablet 400 mg 400 mg, oral, 2 times daily, First dose on Thu06/09/19 at 0900 Given 06/09/2019 9:15 AM CDT 400 mg amiodarone (PACERONE) tablet 400 mg 400 mg, oral, 3 times daily, First dose (after last modification) on Thu06/09/19 at 1600, For 14 doses Given 06/13/2019 8:13 AM CDT 400 mg Given 06/12/2019 9:01 PM CDT 400 mg Given 06/12/2019 5:08 PM CDT 400 mg apixaban (ELIQUIS) tablet 10 mg 10 mg, oral, 2 times daily, First dose on Thu06/10/19 at 2100, For 7 days, Nurse to discontinue heparin infusion order and associated bolus at first administration of apixaban using ? order condition met? order source, Indications: deep venous thrombosisIndications:deep venous thrombosis Given 06/13/2019 8:13 AM CDT 10 mg Given 06/12/2019 11:17 PM CDT 10 mg Given 06/12/2019 8:51 AM CDT 10 mg apixaban (ELIQUIS) tablet 5 mg 5 mg, oral, 2 times daily, First dose on Thu06/17/19 at 2100, Nurse to discontinue heparin infusion order and associated bolus at first administration of apixaban using ? order condition met? order source, Indications: deep venous thrombosisIndications:deep venous thrombosis aspirin chewable tablet 81 mg 81 mg, oral, Daily, First dose on Thu06/09/19 at 0900 Given 06/13/2019 8:13 AM CDT 81 mg Given 06/12/2019 8:52 AM CDT 81 mg Given 06/11/2019 10:10 AM CDT 81 mg aspirin tablet 325 mg 325 mg, oral, Once, On Thu06/08/19 at 1948, For 1 dose Given 06/08/2019 9:21 PM CDT 325 mg calcium carbonate (TUMS) chewable tablet 500 mg 500 mg (200 mg of elemental calcium), oral, Once, On Thu06/08/19 at 2139, For 1 dose Given 06/08/2019 11:03 PM CDT 50 0 mg carvediloL (COREG) tablet 6.25 mg 6.25 mg, oral, 2 times daily with meals (bkfst, dinner), First dose on Thu06/09/19 at 1800 Given 06/13/2019 8:13 AM CDT 6.25 mg Given 06/12/2019 5:05 PM CDT 6.25 mg Given 06/12/2019 8:51 AM CDT 6.25 mg cholecalciferol (VITAMIN D-3) capsule 1,000 Units 1,000 Units, oral, Daily, First dose on Thu06/09/19 at 0900 Given 06/13/2019 8:13 AM CDT 1,000 Units Given 06/12/2019 8:50 AM CDT 1,000 Units Given 06/11/2019 10:10 AM CDT 1,000 Units cyclobenzaprine (FLEXERIL) tablet 5 mg 5 mg, oral, 3 times daily PRN, muscle spasms, Starting on 06/11/19 at 1106 dextrose (D10W) 10% bolus 250 mL 250 mL, intravenous, at 1,000 mL/hr, Administer over 15 Minutes, Every 15 min PRN, blood glucose less than 70 mg/dL and UNABLE to swallow/take PO glucose/juice., Starting on Thu06/09/19 at 0059, After treatment for hypoglycemia, recheck BG followed by treatment every 15 minutes until the BG is greater than 100 mg/dL. Then check BG 1 hour post treatment. If BG is less than 100 mg/dL, repeat Q15 minute BG checks and treatment. Call MD for each episode of hypoglycemia., Indications: hypoglycemic disorderIndications:hypoglycemic disorder dextrose (GLUTOSE) 40 % gel 15 g 15 g, oral, Every 15 min PRN, low blood sugar, blood glucose less than 70 mg/dL, Starting on Yuliana 06/09/19 at 0059, If patient is alert and able to [...] Call MD for each episode of hypoglycemia. MANAGER REGULATORY STATES GLUTOSE-15 CONTAINS GLUCOSE 40% W/W (50% W/V), Indications: hypoglycemic disorderIndications:hypoglycemic disorder DULoxetine DR (CYMBALTA) extended release capsule 60 mg 60 mg, oral, Daily, First dose on Thu06/09/19 at 0900, Capsule may be opened and contents mixed with applesauce or apple juice ONLY. Do not crush, chew, cut, dissolve, open or otherwise manipulate tablet/capsule. Given 06/13/2019 8:13 AM CDT 60 mg Given 06/12/2019 8:50 AM CDT 60 mg Given 06/11/2019 10:50 AM CDT 60 mg furosemide (LASIX) 10 mg/mL injection 20 mg 20 mg, intravenous, Administer over 1 Minutes, Once, On Thu06/08/19 at 1939, For 1 dose, Room temperature only Given 06/08/2019 9:21 PM CDT 20 mg furosemide (LASIX) 10 mg/mL injection 20 mg 20 mg, intravenous, Administer over 1 Minutes, 2 times daily (for diuretics), First dose on Thu06/09/19 at 0900, Room temperature only Given 06/12/2019 5:05 PM CDT 20 mg Given 06/12/2019 8:51 AM CDT 20 mg Given 06/11/2019 5:52 PM CDT 20 mg furosemide (LASIX) 10 mg/mL injection 40 mg 40 mg, intravenous, Administer over 1 Minutes, Once, On Yuliana 06/09/19 at 0145, For 1 dose, Room temperature only Given 06/09/2019 1:49 AM CDT 40 mg furosemide (LASIX) tablet 20 mg 20 mg, oral, 2 times daily (for diuretics), First dose on 06/13/19 at 0900 Given 06/13/2019 8:13 AM CDT 20 mg heparin 1,000 unit/mL injection 2,000 Units 2,000 Units, intravenous, Every 6 hours PRN, PTT 40-50.9 seconds, Starting on Thu06/08/19 at 2047, Subsequent bolus during heparin infusion., Indications: Acute Coronary SyndromeIndications:Acute Coronary Syndrome Given 06/09/2019 11:02 AM CDT 2,000 Units heparin 1,000 unit/mL injection 4,000 Units 4,000 Units, intravenous, Once, On Thu06/08/19 at 2050, For 1 dose, Initial bolus prior to starting heparin infusion. Do not adjust initial bolus based on patient PTT., Indications: Acute Coronary SyndromeIndications:Acute Coronary Syndrome Given 06/08/2019 9:46 PM CDT 4,000 Units heparin in 0.45% sodium chloride 25,000 units/250 mL (100 units/mL) infusion (premix) 1-33 Units/kg/hr ? 90.7 kg (0.907-29.931 mL/hr, rounded to 0.91-29.93 mL/hr), intravenous, Titrated, Starting on Thu06/08/19 at 2049, For 2 days 3 hours, Initial rate:: 11 Units/kg/hr. Max initial rate 1,000 units/hr. Adjust infusion based upon nomogram: PTT less than 40 seconds: Bolus if ordered (see PRN bolus order) , then increase infusion rate 3 units/kg/hour PTT 40 - 50.9 seconds: Bolus if ordered (see PRN bolus order), then increase infusion rate 2 units/kg/hour PTT 51 - 59.9 seconds: No bolus, increase infusion rate 1 unit/kg/hour PTT 60 - 94.9 seconds: No change PTT 95 - 104.9 seconds: No bolus, decrease infusion rate 1 unit/kg/hour PTT 105 - 114.9 seconds: Hold infusion for 30 minutes, then decrease infusion rate 2 units/kg/hour PTT 115 or greater seconds: Hold infusion for 1 hour, then decrease infusion rate 3 units/kg/hour Draw STAT PTT 6 hrs after initial heparin bolus, after each rate change, and every 6 hours until 2 consecutive PTTs are within therapeutic range. Once two consecutive PTT's are therapeutic (60-94.9 seconds), then draw PTT every AM until heparin is discontinued., Indications: Acute Coronary SyndromeIndications:Acute Coronary Syndrome New Bag 06/10/2019 10:41 PM CDT 14 Units/kg/hr 12.7 mL/hr Rate/Dose Verify 06/10/2019 10:00 PM CDT 14 Units/kg/hr 12 .7 mL/hr Rate/Dose Verify 06/10/2019 9:00 PM CDT 14 Units/kg/hr 12. 7 mL/hr ioversoL (OPTIRAY 350) syringe syringe 100 mL 100 mL, intravenous, Once in imaging, contrast, Starting on Thu06/09/19 at 1741, For 1 dose Given 06/09/2019 5:48 PM CDT 100 mL levothyroxine (SYNTHROID) tablet 25 mcg 25 mcg, oral, Daily, First dose on Thu06/09/19 at 0715, Administer on an empty stomach, preferably 30 minutes before breakfast. Take 4 hours apart from antacids, iron and calcium products. Given 06/13/2019 6:02 AM CDT 25 mcg Given 06/12/2019 5:14 AM CDT 25 mcg Given 06/11/2019 5:15 AM CDT 25 mcg LORazepam (ATIVAN) injection 1 mg 1 mg, intravenous, Once, On Thu06/08/19 at 1755, For 1 dose, For IV administration, dilute with equal volume of 0.9% sodium chloride. Do not exceed a rate of 2 mg/minute Given 06/08/2019 6:26 PM CDT 1 mg losartan (COZAAR) tablet 50 mg 50 mg, oral, Daily, First dose on Thu06/09/19 at 0900 Given 06/13/2019 8:13 AM CDT 50 mg Given 06/12/2019 8:51 AM CDT 50 mg Given 06/11/2019 10:10 AM CDT 50 mg magnesium oxide (MAG-OX) tablet 400 mg 400 mg, oral, Once, On Thu06/10/19 at 0200, For 1 dose, 1 tablet = Magnesium oxide 400 mg = 241.3 mg elemental magnesium, Indications: hypomagnesemiaIndications:hypomagnesemia Given 06/10/2019 2:25 AM CDT 400 mg magnesium oxide (MAG-OX) tablet 400 mg 400 mg, oral, Once, On Thu06/12/19 at 0530, For 1 dose, 1 tablet = Magnesium oxide 400 mg = 241.3 mg elemental magnesium, Indications: hypomagnesemiaIndications:hypomagnesemia Given 06/12/2019 5:14 AM CDT 400 mg magnesium oxide (MAG-OX) tablet 400 mg 400 mg, oral, Once, On Thu06/13/19 at 0245, For 1 dose, 1 tablet = Magnesium oxide 400 mg = 241.3 mg elemental magnesium, Indications: hypomagnesemiaIndications:hypomagnesemia Given 06/13/2019 4:46 AM CDT 400 mg magnesium oxide (MAG-OX) tablet 800 mg 800 mg, oral, Once, On Thu06/09/19 at 0345, For 1 dose, 1 tablet = Magnesium oxide 400 mg = 241.3 mg elemental magnesium, Indications: hypomagnesemiaIndications:hypomagnesemia Given 06/09/2019 3:47 AM CDT 800 mg metoprolol (LOPRESSOR) injection 5 mg 5 mg, intravenous, Administer over 1 Minutes, Once, On Thu06/08/19 at 1650, For 1 dose Given 06/08/2019 5:22 PM CDT 5 mg metoprolol (LOPRESSOR) injection 5 mg 5 mg, intravenous, Administer over 1 Minutes, Once, On Thu06/08/19 at 1939, For 1 dose Given 06/08/2019 9:21 PM CDT 5 mg metoprolol (LOPRESSOR) injection 5 mg 5 mg, intravenous, Administer over 1 Minutes, Once, On Thu06/08/19 at 2229, For 1 dose Given 06/08/2019 11:01 PM CDT 5 mg metoprolol tartrate (LOPRESSOR) immediate release tablet 25 mg 25 mg, oral, 2 times daily, First dose on Thu06/09/19 at 0130, On hold since Thu06/09/2019 at 0758 until manually unheld Given 06/09/2019 1:17 AM CDT 25 m g oxyCODONE (ROXICODONE) tablet 5 mg 5 mg, oral, Every 4 hours PRN, breakthrough pain, Starting on Thu06/12/19 at 0916, Indications: PainIndications:Pain Given 06/13/2019 1:07 PM CDT 5 mg Given 06/12/2019 11:35 AM CDT 5 mg oxyCODONE-acetaminophen (PERCOCET) 5-325 mg per tablet 1 tablet 1 tablet, oral, Every 4 hours PRN, breakthrough pain, Starting on Yuliana 06/09/19 at 0428, For 47 days, Indications: PainIndications:Pain Given 06/12/2019 8:50 AM CDT 1 tablet Given 06/11/2019 7:06 PM CDT 1 tablet Given 06/11/2019 10:59 AM CDT [address] (PROTONIX) extended release tablet 40 mg 40 mg, oral, Daily, First dose on Thu06/09/19 at 0900, Do not crush, chew, cut, dissolve, open or otherwise manipulate tablet/capsule., Indications: Treatment of Non-Bleeding Gastric DisorderIndications:Treatment of Non-Bleeding Gastric Disorder Given 06/13/2019 8:13 AM CDT 40 mg Given 06/12/2019 8:52 AM CDT 40 mg Given 06/11/2019 10:11 AM CDT 40 mg polyethylene glycol (MIRALAX) packet 17 g 17 g, oral, Daily, First dose on Thu06/09/19 at 0900, Indications: constipationIndications:constipation Given 06/13/2019 8:13 AM CDT 17 g Given 06/12/2019 8:52 AM CDT 17 g Given 06/11/2019 10:11 AM CDT 17 g potassium chloride ER (KLOR-CON) extended release tablet 30 mEq 30 mEq, oral, Every 4 hours, First dose on Thu06/10/19 at 0200, For 2 doses, Total dose = 60 mEq Do not crush, chew, cut, dissolve, open or otherwise manipulate tablet/capsule. Given 06/10/2019 6:10 AM CDT 30 mEq Given 06/10/2019 2:25 AM CDT 30 mEq potassium chloride ER (KLOR-CON) extended release tablet 40 mEq 40 mEq, oral, Once, On 06/12/19 at 0530, For 1 dose, Do not crush, chew, cut, dissolve, open or otherwise manipulate tablet/capsule. Given 06/12/2019 5:14 AM CDT 40 mEq rosuvastatin (CRESTOR) tablet 20 mg 20 mg, oral, Daily, First dose on Yuliana 06/09/19 at 0900 Given 06/13/2019 8:13 AM CDT 20 mg Given 06/12/2019 8:51 AM CDT 20 mg Given 06/11/2019 10:10 AM CDT 20 mg sodium chloride 0.9% flush 0.5-20 mL 0.5-20 mL, intra-catheter, Every 8 hours scheduled, First dose on Yuliana 06/09/19 at 0130, Flush volume based on line type and size. Given 06/13/2019 6:02 AM CDT 10 mL Given 06/12/2019 11:17 PM CDT 10 mL Given 06/11/2019 8:51 PM CDT 10 mL documented in this encounter Discontinued Medications Medication Sig Discontinue Reason Start Date End Da te metFORMIN (GLUCOPHAGE) 1,000 mg tablet Take one tablet once daily at bedtime 06/09/2019 losartan (COZAAR) 50 mg tablet Take 1 tablet (50 mg total) by mouth daily 06/05/2019 06/09/2019 senna-docusate (PERICOLACE) 8.6-50 mgIndications:constipa tion Take 2 tablets by mouth 2 (two) times a day 05/27/2019 06/09/[address] (CYMBALTA) 30 mg capsule Take 60 mg by mouth daily 09/30/2017 06/09/2019 warfarin (COUMADIN) 2 mg tabletIndications:atri al fibrillation,Venous Thrombosis Take 1 tablet (2 mg total) by mouth daily Formulary change 06/05/2019 06/10/2019 zolpidem (AMBIEN) 5 mg tabletIndications:Slee p-Onset Insomnia Take 5 mg by mouth nightly. at bedtime. Stop Taking at Discharge 09/16/2017 06/13/2019 ALPRAZolam (XANAX) 0.25 mg tablet Take 0.25 mg by mouth 3 (three) times a day as needed Stop Taking at Discharge 06/13/2019 carvedilol (COREG) 25 mg tablet Take 1 tablet (25 mg total) by mouth 2 (two) times a day with meals Stop Taking at Discharge 12/27/2018 06/13/2019 potassium chloride ER (KLOR-CON) 20 mEq CR tablet Take 1 tablet (20 mEq total) by mouth daily Stop Taking at Discharge 12/27/2018 06/13/2019 lovastatin (MEVACOR) 10 mg tablet TAKE ONE TABLET BY MOUTH ONCE DAILY AT BEDTIME Stop Taking at Discharge 12/28/2018 06/13/2019 acetaminophen 500 mg capsule Take 2 capsules (1,000 mg total) by mouth every 6 (six) hours as needed for pain Stop Taking at Discharge 06/05/2019 06/13/2019 documented as of this encounter Historical Medications * This list may reflect changes made after this encounter. busPIRone (BUSPAR) 5 mg tabletIndications: Generalized Anxiety Disorder Take 5 mg by mouth daily Take 5mg by mouth daily x 1 week, then increase to 5mg twice daily 0 07/29/19 20 ipratropium-albute roL (DUO-NEB) 0.5-2.5 mg/3 mL nebulizer solutionIndication s:Chronic Obstructive Pulmonary Disease with Bronchospasms Take 3 mL by nebulization every 6 (six) hours as needed for wheezing or shortness of breath 09/12/19 21 insulin aspart U-100 (NovoLOG) 100 unit/mL (3 mL) insulin pen Administer subcutaneously per sliding scale 07/29/[address] (CYMBALTA) 60 mg capsule Take 60 mg by mouth daily 08/22/19 21 losartan (COZAAR) 100 mg tablet Take 100 mg by mouth daily 10/07/19 20 metFORMIN XR (GLUCOPHAGE XR) 500 mg 24 hr tablet Take 1,000 mg by mouth nightly 09/19/19 21 added in this encounter Active and Recently Administered Medications Times are shown in CDT. Scheduled Medication Order 06/11/2019 06/12/2019 06/13/2019 amiodarone (PACERONE) tablet 400 mg 400 mg, oral, 3 times daily, First dose (after last modification) on Yuliana 06/09/19 at 1600, For 14 doses 1010 (Given - Provider: Stas Robbins RN)1751 (Given - Provider: Stas Robbins RN)2049 (Given - Provider: Ashley Beatty RN) 0851 (Given - Provider: Stas Robbins RN)170 (Given - Provider: Stas Robbins RN)210 (Given - Provider: Daniela Perez RN) 0813 (Given - Provider: Negra Lei, ARMANI) apixaban (ELIQUIS) tablet 10 mg(Linked Group 1) 10 mg, oral, 2 times daily, First dose on Thu06/10/19 at 2100, For 7 days, Nurse to discontinue heparin infusion order and associated bolus at first administration of apixaban using ? order condition met? order source, Indications: deep venous thrombosis 1012 (Given - Provider: Stas Robbins RN)2050 (Given - Provider: Ashley Beatty RN) 0851 (Given - Provider: Stas Robbins RN)231 (Given - Provider: Ashley Beatty RN) 0813 (Given - Provider: Negra Lei RN) apixaban (ELIQUIS) tablet 5 mg(Linked Group 1) 5 mg, oral, 2 times daily, First dose on Thu06/17/19 at 2100, Nurse to discontinue heparin infusion order and associated bolus at first administration of apixaban using ? order condition met? order source, Indications: deep venous thrombosis aspirin chewable tablet 81 mg 81 mg, oral, Daily, First dose on Yuliana 06/09/19 at 0900 1010 (Given - Provider: Stas oRbbins RN) 0852 (Given - Provider: Stas Robbins RN) 0813 (Given - Provider: Negra Lei RN) carvediloL (COREG) tablet 6.25 mg 6.25 mg, oral, 2 times daily with meals (bkfst, dinner), First dose on Yuliana 06/09/19 at 1800 1011 (Given - Provider: Stas Robbins RN)1751 (Given - Provider: Stas Robbins RN) 0851 (Given - Provider: Stas Robbins RN)1705 (Given - Provider: Stas Robbins RN) 0813 (Given - Provider: Negra Lei RN) cholecalciferol (VITAMIN D-3) capsule 1,000 Units 1,000 Units, oral, Daily, First dose on Thu06/09/19 at 0900 1010 (Given - Provider: Stas Robbins RN) 0850 (Given - Provider: Stas Robbins RN) 0813 (Given - Provider: Negra Lei, ARMANI) DULoxetine DR (CYMBALTA) extended release capsule 60 mg 60 mg, oral, Daily, First dose on Thu06/09/19 at 0900, Capsule may be opened and contents mixed with applesauce or apple juice ONLY. Do not crush, chew, cut, dissolve, open or otherwise manipulate tablet/capsule. 1050 (Given - Provider: Stas Robbins RN) 0850 (Given - Provider: Stas Robbins RN) 0813 (Given - Provider: Negra Lei, ARMANI) furosemide (LASIX) 10 mg/mL injection 20 mg (CANCELED) 20 mg, intravenous, Administer over 1 Minutes, 2 times daily (for diuretics), First dose on Thu06/09/19 at 0900, Room temperature only 1059 (Given - Provider: Stas Robbins RN)1752 (Given - Provider: Stas Robbins RN) 0851 (Given - Provider: Stas Robbins RN)1705 (Given - Provider: Stas Robbins RN) furosemide (LASIX) tablet 20 mg 20 mg, oral, 2 times daily (for diuretics), First dose on Thu06/13/19 at 0900 0813 (Given - Provider: Negra Lei, ARMANI) insulin lispro (HumaLOG) injection 1-2 Units 1-2 Units, subcutaneous, 3 times daily with meals, First dose on Thu06/09/19 at 0800, Blood Sugar Extra Low Dose meal time - PO patients 200 or less No Insulin 201 - 250 1 unit 251 - 299 2 units Greater than 299 Call MD for hyperglycemia management instructions Do NOT hold for NPO status., Indications: Diabetes Mellitus 0859 (Not Given - Provider: Stas Robbins RN - Reason: Order parameters not met)1422 (Not Given - Provider: Stas Robbins RN - Reason: Order parameters not met)1752 (Not Given - Provider: Stas Robbins RN - Reason: Order parameters not met) 0821 (Not Given - Provider: Stas Robbins RN - Reason: Order parameters not met)1255 (Not Given - Provider: Stas Robbins RN - Reason: Other)1705 (Not Given - Provider: Stas Robbins RN - Reason: Order parameters not met) 0813 (Not Given - Provider: Negra Lei RN - Reason: Order parameters not met)1259 (Not Given - Provider: Negra Lei RN - Reason: Order parameters not met) levothyroxine (SYNTHROID) tablet 25 mcg 25 mcg, oral, Daily, First dose on Yuliana 06/09/19 at 0715, Administer on an empty stomach, preferably 30 minutes before breakfast. Take 4 hours apart from antacids, iron and calcium products. 0515 (Given - Provider: Maia Lee RN) 0514 (Given - Provider: Ashley Beatty RN) 0602 (Given - Provider: Ashley Beatty RN) losartan (COZAAR) tablet 50 mg 50 mg, oral, Daily, First dose on Yuliana 06/09/19 at 0900 1010 (Given - Provider: Stas Robbins RN) 0851 (Given - Provider: Stas Robbins RN) 0813 (Given - Provider: Negra Lei RN) magnesium oxide (MAG-OX) tablet 400 mg (COMPLETED) 400 mg, oral, Once, On 06/12/19 at 0530, For 1 dose, 1 tablet = Magnesium oxide 400 mg = 241.3 mg elemental magnesium, Indications: hypomagnesemia 0514 (Given - Provider: Ashley Beatty RN) magnesium oxide (MAG-OX) tablet 400 mg (COMPLETED) 400 mg, oral, Once, On 06/13/19 at 0245, For 1 dose, 1 tablet = Magnesium oxide 400 mg = 241.3 mg elemental magnesium, Indications: hypomagnesemia 0446 (Given - Provider: Ashley Beatty RN) pantoprazole DR (PROTONIX) extended release tablet 40 mg 40 mg, oral, Daily, First dose on Yuliana 06/09/19 at 0900, Do not crush, chew, cut, dissolve, open or otherwise manipulate tablet/capsule., Indications: Treatment of Non-Bleeding Gastric Disorder 1011 (Given - Provider: Stas Robbins RN) 0852 (Given - Provider: Stas Robbins RN) 0813 (Given - Provider: Negra Lei RN) polyethylene glycol (MIRALAX) packet 17 g 17 g, oral, Daily, First dose on Yuliana 06/09/19 at 0900, Indications: constipation 1011 (Given - Provider: Stas Robbins RN) 0852 (Given - Provider: Stas Robbins RN) 0813 (Given - Provider: Negra Lei RN) potassium chloride ER (KLOR-CON) extended release tablet 40 mEq (COMPLETED) 40 mEq, oral, Once, On Counselor 06/12/19 at 0530, For 1 dose, Do not crush, chew, cut, dissolve, open or otherwise manipulate tablet/capsule. 0514 (Given - Provider: Ashley Beatty RN) rosuvastatin (CRESTOR) tablet 20 mg 20 mg, oral, Daily, First dose on Yuliana 06/09/19 at 0900 1010 (Given - Provider: Stas Robbins RN) 0851 (Given - Provider: Stas Robbins RN) 0813 (Given - Provider: Negra Lei RN) sodium chloride 0.9% flush 0.5-20 mL 0.5-20 mL, intra-catheter, Every 8 hours scheduled, First dose on Yuliana 06/09/19 at 0130, Flush volume based on line type and size. 0502 (Not Given - Provider: Maia Lee RN - Reason: Patient/family refused)1422 (Not Given - Provider: Stas Robbins RN - Reason: Other)2051 (Given - Provider: Ashley Beatty RN) 0546 (Not Given - Provider: Ashley Beatty RN - Reason: Other)1255 (Not Given - Provider: Stas Robbins RN - Reason: Other)2317 (Given - Provider: Ashley Beatty RN) 0602 (Given - Provider: Ashley Beatty RN)1300 (Not Given - Provider: Negra Lei RN - Reason: Loss of IV access - Comment: d/c IV for discharge) PRN Medication Order 06/11/2019 06/12/2019 06/13/2019 acetaminophen (TYLENOL) tablet 650 mg 650 mg, oral, Every 6 hours PRN, 1st line for pain, Starting on Thu06/10/19 at 1552 1009 (Given - Provider: Stas Robbins, RN)1010 (Given - Provider: Stas Robbins, RN) 0521 (Given - Provider: Ashley Beatty RN)2101 (Given - Provider: Daniela Perez RN) bisacodyL (DULCOLAX) suppository 10 mg 10 mg, rectal, Daily PRN, constipation, If no results 24 hours after polyethylene glycol (MIRALAX). May give bisacodyl tablet if tolerating PO., Starting on Yuliana 06/09/19 at 0059, Indications: constipation bisacodyl EC (DULCOLAX EC) tablet 10 mg 10 mg, oral, Daily PRN, constipation, If no results 24 hours after polyethylene glycol (MIRALAX). May give bisacodyl supp if not tolerating PO), Starting on Yuliana 06/09/19 at 0059, Do not crush, chew, cut, dissolve, open or otherwise manipulate tablet/capsule., Indications: constipation cyclobenzaprine (FLEXERIL) tablet 5 mg 5 mg, oral, 3 times daily PRN, muscle spasms, Starting on 06/11/19 at 1106 dextrose (D10W) 10% bolus 250 mL(Linked Group 2) 250 mL, intravenous, at 1,000 mL/hr, Administer over 15 Minutes, Every 15 min PRN, blood glucose less than 70 mg/dL and UNABLE to swallow/take PO glucose/juice., Starting on Yuliana 06/09/19 at 0059, After treatment for hypoglycemia, recheck BG followed by treatment every 15 minutes until the BG is greater than 100 mg/dL. Then check BG 1 hour post treatment. If BG is less than 100 mg/dL, repeat Q15 minute BG checks and treatment. Call MD for each episode of hypoglycemia., Indications: hypoglycemic disorder dextrose (GLUTOSE) 40 % gel 15 g(Linked Group 2) 15 g, oral, Every 15 min PRN, low blood sugar, blood glucose less than 70 mg/dL, Starting on Yuliana 06/09/19 at 0059, If patient is alert and able to [...] Call MD for each episode of hypoglycemia. MANAGER REGULATORY STATES GLUTOSE-15 CONTAINS GLUCOSE 40% W/W (50% W/V), Indications: hypoglycemic disorder glucagon injection 1 mg 1 mg, intramuscular, Administer over 1 Minutes, Every 30 min PRN, low blood sugar, blood glucose less than 70 mg/dL AND no IV access AND unable to take PO glucose/jiuce., Starting on [facility] 06/09/19 at 0059, After Glucagon is administered, position patient on [...] MD for each episode of hypoglycemia., Indications: Hypoglycemia oxyCODONE (ROXICODONE) tablet 5 mg 5 mg, oral, Every 4 hours PRN, breakthrough pain, Starting on Counselor 06/12/19 at 0916, Indications: Pain 1135 (Given - Provider: Stas Robbins RN) 1307 (Given - Provider: Negra Lei RN) oxyCODONE-acetaminophen (PERCOCET) 5-325 mg per tablet 1 tablet (CANCELED) 1 tablet, oral, Every 4 hours PRN, breakthrough pain, Starting on [facility] 06/09/19 at 0428, For 47 days, Indications: Pain 1059 (Given - Provider: Stas Robbins RN)1906 (Given - Provider: Stas Robbins, ARMANI) 0850 (Given - Provider: Stas Robbins, ARMANI) sodium chloride 0.9% flush 0.5-20 mL 0.5-20 mL, intra-catheter, As needed, line care, Starting on [facility] 06/09/19 at 0059, Flush volume based on line type and size. Flush before and after each use. Linked Groups Order Group 1: apixaban (ELIQUIS) tablet 10 mgJump to med 10 mg, oral, 2 times daily, First dose on Thu06/10/19 at 2100, For 7 days, Nurse to discontinue heparin infusion order and associated bolus at first administration of apixaban using ? order condition met? order source, Indications: deep venous thrombosis Followed by apixaban (ELIQUIS) tablet 5 mgJump to med 5 mg, oral, 2 times daily, First dose on Thu06/17/19 at 2100, Nurse to discontinue heparin infusion order and associated bolus at first administration of apixaban using ? order condition met? order source, Indications: deep venous thrombosis Group 2: dextrose (GLUTOSE) 40 % gel 15 gJump to med 15 g, oral, Every 15 min PRN, low blood sugar, blood glucose less than 70 mg/dL, Starting on Yuliana 06/09/19 at 0059, If patient is alert and able to [...] Call MD for each episode of hypoglycemia. MANAGER REGULATORY STATES GLUTOSE-15 CONTAINS GLUCOSE 40% W/W (50% W/V), Indications: hypoglycemic disorder Or dextrose (D10W) 10% bolus 250 mLJump to med 250 mL, intravenous, at 1,000 mL/hr, Administer over 15 Minutes, Every 15 min PRN, blood glucose less than 70 mg/dL and UNABLE to swallow/take PO glucose/juice., Starting on Yuliana 06/09/19 at 0059, After treatment for hypoglycemia, recheck BG followed [...] Count Last Ordered Date First Ordered Date amiodarone (PACERONE) tablet 200 mg 1 06/11 cyclobenzaprine (FLEXERIL) tablet 5 mg 1 apixaban (ELIQUIS) tablet 5 mg 1 06/10/2019 bisacodyL (DULCOLAX) suppository 10 mg 1 bisacodyl EC (DULCOLAX EC) tablet 10 mg 1 0 06/09/2019 dextrose (D10W) 10% bolus 250 mL 1 06/09/19 20 dextrose (GLUTOSE) 40 % gel 15 g 1 06/09/19 20 furosemide (LASIX) tablet 20 mg 1 0 glucagon injection 1 mg 1 06/09/2019 insulin lispro (HumaLOG) inj ection 1-2 Units 1 06/09/2019 losartan (COZAAR) tablet 50 mg 1 06/09/2019 lovastatin (MEVACOR) tablet 10 mg 1 020 metoprolol (LOPRESSOR) injection 5 mg 2 sodium chloride 0.9% flush 0.5-20 mL 1 05/15 dilTIAZem (CARDIZEM) injection 5 mg 1 06/07 heparin 1,000 unit/mL inject ion 3,000 Units 1 06/08/2019 Lab Orders Without Results Count Last Ordered D ate First Ordered Date POCT GLUCOSE DEVICE 8 06/13/2019 06/08/19 20 FERRITIN 1 06/10/2019 FOLATE 1 06/10/2019 IRON PROFILE W/ IBC 1 06/10/2019 VITAMIN B12 1 06/10/2019 HEPATIC FUNCTION PANEL 1 06/09/2019 Nursing Count Last Ordered Date First Orde red Date WEIGH PATIENT 1 06/09/2019 Consult Count Last Ordered Date First Orde red Date CONSULT TO ORTHO-TRAUMA 1 06/10/2019 Isolation Count Last Ordered Date First Orde red Date INITIATE CONTACT ISOLATION 2 06/09/2019 INITIATE DROPLET ISOLATION 3 06/09/2019 CORE MEASURES Count Last Ordered Date First Ord ered Date REASON FOR NO VTE PROPHYLAXIS AT ADMISSION 1 06/09/2019 ADT Patient Update Count Last Ordered Date Firs t Ordered Date ED IP DECISION TO ADMIT 1 06/08/2019 documented in this encounter Additional Health Concerns Infection Onset Date Last Indicated Resolved Time COVID19 Comment:IP Review - pt afebrile, without URI signs/symptoms. Aislinn Goldsmith, DEDICATED DRIVER 06/09/2019 06/09/2019 06/09/2019 4:20 PM C DT documented as of this encounter Care Teams Advertisement Compositor Relationship Specialty Start Date End Date Wilber Cleaning Jr., MD [id number] [place] [address] PCP - General 07/03/16 07/15/20 documented as of this encounter
--- OUTSIDE RECORDS SUMMARY | 2024-03-13 01:15 | XMS_ITS | Encounter Summary ---
Author Organization [facility] Healthcare Address [address] [place] [address] Care Team Providers Care Osteopathy Doctor Name Role Phone Hermila Calhoun MD, Wilber Martinez Primary Care Provider Encounter Details Date Type Department Care Team (Latest Contact Info) Description 05/29/2019 9:14 PM CDT - 06/05/2019 4:13 PM CDT Hospital Encounter [facility] [address] [place] [address] Keanu Hwang MD [address] [place] [address] Alessandro Erazo MD [phone] [place] [address] Irais Holguin MD [address] [facility] [phone] [place] [address] Atrial fibrillation with RVR (CMS/HCC) (Primary Dx) Discharge Disposition: Discharge to SNF Social History Tobacco Use Types Packs/Day Years Used Date Smoking Tobacco: Never Smokeless Tobacco: Never Alcohol Use Standard Drinks/Week Comments Yes 0 (1 standard drink = 0.6 oz pur e alcohol) 1/mo Comments No Sex and Gender Information Value Date Recorded Sex Assigned at Not on file 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 No / Unsure 05/29/2019 10:23 PM CDT documented as of this encounter Last Filed Vital Signs Vital Sign Reading Time Taken Comments Blood Pressure 144/87 06/05/2019 2:40 PM CDT Pulse 88 06/05/2019 2:40 PM CDT Temperature 36.3 ??C (97.3 ??F) 06/05/2019 2:40 PM CD T Respiratory Rate 18 06/05/2019 2:40 PM CDT Oxygen Saturation 95% 06/05/2019 2:40 PM CDT Inhaled Oxygen Concentration - - Weight 109 kg (240 lb 4.8 oz) 05/29/2019 9:18 PM CDT Height 165.1 cm (5' 5 ) 05/29/2019 9:18 PM CDT Body Mass Index 39.99 05/29/2019 9:18 PM CDT documented in this encounter Discharge Diagnoses Diagnosis Other pulmonary embolism with acute cor pulmonale (HCC) - OTHER PULMONARY EMBOLISM WITH ACUTE COR PULMONALE Hypo-osmolality and hyponatremia - HYPO-OSMOLALITY AND HYPONATREMIA Chronic atrial fibrillation, unspecified (HCC) - CHRONIC ATRIAL FIBRILLATION, UNSPECIFIED Acute embolism and thrombosis of right peroneal vein (HCC) - ACUTE EMBOLISM AND THROMBOSIS OF RIGHT PERONEAL VEIN Body mass index (BMI) 40.0-44.9, adult - BODY MASS INDEX (BMI) 40.0-44.9, ADULT Acute kidney failure, unspecified (HCC) - ACUTE KIDNEY FAILURE, UNSPECIFIED Acute kidney failure, unspecified Acute posthemorrhagic anemia - ACUTE POSTHEMORRHAGIC ANEMIA Anemia in other chronic diseases classified elsewhere - ANEMIA IN OTHER CHRONIC DISEASES CLASSIFIED ELSEWHERE (MANIFESTATION) Hypothyroidism, unspecified - HYPOTHYROIDISM, UNSPECIFIED Type 2 diabetes mellitus with hyperglycemia ([facility]/HCC) (HCC) - TYPE 2 DIABETES MELLITUS WITH HYPERGLYCEMIA Obesity, unspecified - OBESITY, UNSPECIFIED Hyperlipidemia, unspecified - HYPERLIPIDEMIA, UNSPECIFIED Anxiety disorder, unspecified - ANXIETY DISORDER, UNSPECIFIED Insomnia, unspecified - INSOMNIA, UNSPECIFIED Obstructive sleep apnea (adult) (pediatric) - OBSTRUCTIVE SLEEP APNEA (ADULT) (PEDIATRIC) Essential (primary) hypertension - ESSENTIAL (PRIMARY) HYPERTENSION Unspecified essential hypertension Acute embolism and thrombosis of right calf muscular vein (HCC) - ACUTE EMBOLISM AND THROMBOSIS OF RIGHT CALF MUSCULAR VEIN Sleep apnea, unspecified - SLEEP APNEA, UNSPECIFIED Hypotension, unspecified - HYPOTENSION, UNSPECIFIED Functional dyspepsia - FUNCTIONAL DYSPEPSIA Dyspepsia and other specified disorders of function of stomach Combined rheumatic disorders of mitral, aortic and tricuspid valves - COMBINED RHEUMATIC DISORDERS OF MITRAL, AORTIC AND TRICUSPID VALVES Other instability, left knee - OTHER INSTABILITY, LEFT KNEE Abnormal coagulation profile - ABNORMAL COAGULATION PROFILE Displaced comminuted fracture of shaft of left femur, subsequent encounter for closed fracture with routine healing - DISPLACED COMMINUTED FRACTURE OF SHAFT OF LEFT FEMUR, SUBSEQUENT ENCOUNTER FOR CLOSED FRACTURE WITH Fall (on) (from) unspecified stairs and steps, subsequent encounter - FALL (ON) (FROM) UNSPECIFIED STAIRS AND STEPS, SUBSEQUENT ENCOUNTER intermediate (current) use of anticoagulants - SENIOR CARE (CURRENT) USE OF ANTICOAGULANTS Long-term (current) use of anticoagulants intermediate (current) use of insulin (HCC) - SENIOR CARE (CURRENT) USE OF INSULIN Hormone replacement therapy - HORMONE REPLACEMENT THERAPY Other terminal manager (current) drug therapy - OTHER GRAPHIC PRE PRESS TRADES WORKER (CURRENT) DRUG THERAPY Family history of sudden cardiac - FAMILY HISTORY OF SUDDEN CARDIAC Family history of ischemic heart disease and other diseases of the circulatory system - FAMILY HISTORY OF ISCHEMIC HEART DISEASE AND OTHER DISEASES OF THE CIRCULATORY SYSTEM Family history of diabetes mellitus - FAMILY HISTORY OF DIABETES MELLITUS 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 UTERUS Presence of left artificial knee joint - PRESENCE OF LEFT ARTIFICIAL KNEE JOINT Acquired absence of other specified parts of digestive tract - ACQUIRED ABSENCE OF OTHER SPECIFIED PARTS OF DIGESTIVE TRACT Other specified postprocedural states - OTHER SPECIFIED POSTPROCEDURAL STATES intermediate (current) use of oral hypoglycemic drugs - SENIOR CARE (CURRENT) USE OF ORAL HYPOGLYCEMIC DRUGS Allergy status to other drugs, medicaments and biological substances status - ALLERGY STATUS TO OTHER DRUGS, MEDICAMENTS AND BIOLOGICAL SUBSTANCES STATUS documented in this encounter Discharge Summaries * Kae Adkins MD - 06/05/2019 11:17 AM CDT Inpatient Discharge Summary BRIEF OVERVIEW Admitting Provider: Irais Holguin MD Discharge Provider: Alessandro Erazo MD Primary Care Physician at Discharge: Wilber Cleaning Jr., MD [phone] Admission Date: 05/29/2019 Discharge Date: 06/05/2019 Admission Location: [facility] Problems/Diagnoses: Principal Problem: Atrial fibrillation with RVR (CMS/HCC) Active Problems: Acute pulmonary embolism with acute cor pulmonale (CMS/HCC) Left femoral fracture Hypothyroidism, unspecified Obstructive sleep apnea Diabetes mellitus type II, controlled ([facility]) Hypertension, essential Resolved Problems: No resolved hospital problems. DETAILS OF HOSPITAL STAY Presenting Problem/History of Present Illness: Ms. Hodgson is a 79 yo F with h/o chronic Afib with RVR, T2DM, and recent L distal femoral fx s/p replacement by Ortho at [facility] 05/20 and clean out of bone fragments 05/21 presenting with increasing SOB andchest pain at her rehab facility. She reports that SOB started perioperatively and has gradually been worsening. She was placed on supp O2 at the rehab facility, which she does not require at baseline. She has had intermittent chest pressure R>L, which does not radiate to the extremities or jaw.She denies any chest pain at the moment. She denies any nausea, vomiting, abdominal pain, AMS, weakness, or numbness/tingling. Pt has had chronic paroxysmal Afib for many years, takes warfarin 2mg every day, and gets frequent INR checks. INR was subtherapeutic at 1.3 on last check prior to this hospitalization on 05/26/19. INR today was 1.6. ?? At the OSH prior to transfer, she was found to be in Afib with RVR, and CT PE revealed bilateral pulm emboli R>L. She was given a diltiazem bolus 10mg and heparin bolus 8000u and then started on adiltiazem and heparin gtt. Labs revealed pro-BNP 5830, lactate 4.7, and troponin 0.036 -> 0.058 -> 0.110. Hospital Course: #Acute bilateral pulmonary embolism Patient presented with provoked PE in setting of recent orthopedic surgery and subtherapeutic warfarin for afib without bridging at discharge for surgery. She presented to an outside hospital from the rehab with increased SOB, chest pressure R>L, and new O2 requirements not required at baseline.At the outside hospital, CT PE showed bilateral PEs (right segmental, left subsegmental). Labs revealed proBNP 5830, lactate 4.7, and troponin trended 0.036 --> 0.058 --> 0.11. She was started on IV heparin gtt for anticoagulation. She was transferred to [facility] SICU, where repeat labs were significant for proBNP 7985, lactate 1.0, and troponin downtrended to 0.08. Lower extremity dopplers (05/29) showed right lower extremity acute DVT in peroneal and soleal veins. Unable to image left lower extremity due to dressings. Bedside ultrasound showed evidence of right heart strain and formal TTE showed decreased ejection fraction 38% from baseline (51%), L atrial enlargement, mitral annulus calcification, mild dilation RV, moderate RV hypokinesis, mild RA enlargement, dilated inferior vena cava, mild mitral and tricuspid regurgitation, and moderate atrial stenosis. The patient was never on pressors or intubated in the ICU and quickly weaned to room air. Bridging with heparin to warfarin was started with 5 mg loading dose 05/30 and subsequently 2 mg daily beginning 05/31 which was her previous home maintenance dose. At discharge, the patient's INR is therapeutic at 2.0 and her shortness of breath was improved on room air. She will need continued INR monitoring and continued warfarin dose adjustment for goal INR 2-3. ?? #Afib with RVR At the outside hospital, she was found to be in afib with RVR in setting of PE. She was initially managed on diltiazem gtt and transitioned to amiodarone gtt here with good rate control. She was briefly transitioned to metoprolol and ultimately restarted on her home carvedilol 25 mg BID for rate control. She was continued on anticoagulation as above for management of PE, and discharged on warfarin 2 mg daily, though will require regular INR monitoring and warfarin titration to goal INR 2-3. ?? #Left distal femoral fracture After a fall (05/20) leading to a left distal femoral fracture, the patient initially underwent debridement (05/21) where it was determined there was too much damage for primary fixation. Therefore, she underwent left total knee arthroplasty with distal femoral replacement (05/24) with Dr. Charles without any complications and discharged 05/26 to a rehab facility. Orthopedic surgery has been following throughout the patient's current admission and recommended weight bearing to left lower extremity as tolerated. PT and OT therapy were continued and recommended continued therapy at [facility] facility at discharge. She has follow up scheduled with Dr. Charles on 06/16/19 and has instructionsfrom orthopedic surgery to keep steris and theodore in place until her follow up appointment. ?? #Peripheral edema The patient had 2+ bilateral lower extremity pitting edema upon transfer to floor. TTE showed decreased ejection fraction 38% from baseline (51%), L atrial enlargement, mitral annulus calcification, mild dilation RV, moderate RV hypokinesis, mild RA enlargement, dilated inferior vena cava, mild mitral and tricuspid regurgitation, and moderate atrial stenosis. Home Lasix 20 mg daily was started 05/30 with little improvement and increased to 20 mg BID 06/01. She was discharged with instructions to continue Lasix 20 mg BID and continue carvedilol 25 mg BID, and restart losartan 50 mg daily. 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 ?? #T2DM - During admission home metformin was held. Her diabetes was controlled on Lantus 10 units qAM, and a mid dose sliding scale insulin. She was placed on a consistent carbohydrate diet. #HTN: During admission, home HCTZ, amlodipine, losartan, and carvedilol were initially held due to soft blood pressures. On discharge, carvedilol had been restarted at 25 mg daily and losartan restarted at 50 mg daily. She will follow up as an outpatient about restarting her home regimen. #Hypothyroidism: Home levothyroxine 25 mcg was continued through admission. #AYAD: Home CPAP was used throughout admission. #HLD: Home home lovastatin 10 mg daily was continued throughout admission. Active Issues Requiring Follow-up: INR monitoring and warfarin dose adjustment Outpatient cardiology follow-up for Afib and CHF Outpatient orthopedic surgery follow up Test Results Pending at Discharge: None Operative Procedures Performed: None Other Procedures: None Pertinent Test Results: 06/05/19: INR 2.0 Discharge Details Physical Exam at Discharge: Discharge Condition: stable Pulse: 91 Resp: 18 BP: 138/84 Temp: 36.2 ??C (97.2 ??F) Weight: 109 kg (240 lb 4.8 oz) Pertinent Exam Findings at Discharge: General: Not in acute distress. Lying comfortably in bed. HEENT: Sclera nonicteric. Moist mucous membranes. Cardiac: Irregular rhythm and regular rate. No JVD. Pulmonary: No respiratory distress on room air. Clear to auscultation bilaterally. Abdomen: Soft, nondistended, nontender. Extremities: 1+ pitting edema bilaterally to midshin. Dressing over LLE, c/d/i. Warm and well perfused. Neurologic: Alert and oriented to person/place/time. Psychiatric: Anxious mood, congruent affect, pleasant and conversant. Discharge Disposition: Discharge to rehab/SNF Code Status at Discharge: Full code Discharge Instructions: You were found to have a pulmonary embolism, which is a blood clot that traveled to your lungs, as well as a blood clot in your right leg. For this, you were initially treated with heparin and transitioned to warfarin until your INR was therapeutic at 2. Your goal INR is between 2 - 3. Please continue to take warfarin 2 mg daily; your INR will continue to be monitored regularly to make sure this is an appropriate dose. ?? For your blood pressure, your home medications were stopped initially because you had lower blood pressures when you first arrived. You were restarted on [facility] When you go to rehab, you can restart losartan at 50 mg daily. When you follow up with your primary care doctor, they can continue to adjust your blood pressure regimen as needed. You should also follow up with your outpatient sheet metal worker helper, who can continue to monitor your Afib, bloodpressure, and heart function. ?? For your left leg fracture, please continue working with physical therapy to slowly increase your strength. This will take time, but you can continue take pain medications as needed to help with undergoing therapy. You have follow up with Dr. Charles scheduled on 06/16/19 where your theodore will beremoved. Discharge Medications: Current Medications TAKE these medications acetaminophen 500 mg capsule Take 2 capsules (1,000 mg total) by mouth every 6 (six) hours as needed for pain carvediloL 25 mg tablet Take 1 tablet (25 mg total) by mouth 2 (two) times a day with meals Commonly known as: COREG CENTRUM SILVER ULTRA WOMEN'S ORAL Take by mouth daily DULoxetine DR 30 mg capsule Take 60 mg by mouth daily Commonly known as: CYMBALTA furosemide 20 mg tablet Take 1 tablet (20 mg total) by mouth 2 (two) times a day Commonly known as: LASIX levothyroxine 25 mcg tablet Take 25 mcg by mouth daily Commonly known as: SYNTHROID losartan 50 mg tablet Take 1 tablet (50 mg total) by mouth daily Commonly known as: COZAAR lovastatin 10 mg tablet TAKE ONE TABLET BY MOUTH ONCE DAILY AT BEDTIME Commonly known as: MEVACOR metFORMIN 1,000 mg tablet Take one tablet once daily at bedtime Commonly known as: GLUCOPHAGE oxyCODONE-acetaminophen 5-325 mg per tablet Take 1-2 [...] Non-Bleeding Gastric Disorder Commonly known as: PROTONIX Start taking on: June 06, 2019 potassium chloride ER 20 mEq CR tablet Take 1 tablet (20 mEq total) by mouth daily Commonly known as: KLOR-CON senna-docusate 8.6-50 mg Take 2 tablets by mouth 2 (two) times a day For: constipation Commonly known as: PERICOLACE VITAMIN D3 ORAL Take by mouth daily warfarin 2 mg tablet Take 1 tablet (2 mg total) by mouth daily For: atrial fibrillation, blood clot formation in veins Commonly known as: COUMADIN Xanax 0.25 mg tablet PRN Generic drug: ALPRAZolam zolpidem 5 mg tablet Take 5 mg by mouth nightly. at bedtime. For: difficulty falling asleep Commonly known as: AMBIEN Outpatient Follow-Up: Future Appointments Date Time Provider Department Center 06/16/2019 9:45 AM Kaveh Charles MD [facility] Cosigned by Alessandro Erazo MD at 06/05/2019 11:56 AM CDT documented in this encounter Discharge Instructions * Discharge Instructions* Kae Adkins MD - 06/05/2019 11:26 AM CDT You were found to have a pulmonary embolism, which is a blood clot that traveled to your lungs, as well as a blood clot in your right leg. For this, you were initially treated with heparin and transitioned to warfarin until your INR was therapeutic at 2. Your goal INR is between 2 - 3. Please continue to take warfarin 2 mg daily; your INR will continue to be monitored regularly to make sure this is an appropriate dose. For your blood pressure, your home medications were stopped initially because you had lower blood pressures when you first arrived. You were restarted on carvedilol (Coreg) 25 mg two times per day int hospital. When you go to rehab, you can restart losartan at 50 mg daily. When you follow up with your primary care doctor, they can continue to adjust your blood pressure regimen as needed. You should also follow up with your outpatient sheet metal worker helper, who can continue to monitor your Afib, bloodpressure, and heart function. For your left leg fracture, please continue working with physical therapy to slowly increase your strength. This will take time, but you can continue take pain medications as needed to help with undergoing therapy. You have follow up with Dr. Charles scheduled on 06/16/19 where your theodore will beremoved. * Attachments The following attachments cannot be sent through Care Everywhere. * Pulmonary Embolism (Discharge Care) ([place]) documented in this encounter Medications at Time [...] (three) times a day as needed 06/13/2019 carvedilol (COREG) 25 mg tablet Take 1 tablet (25 mg total) by mouth 2 (two) times a day with meals 60 tablet 12/27/2018 06/13/2019 cholecalciferol, vitamin D3, (VITAMIN D3 ORAL) Take 400 Units by mouth daily 01/13/[address] (CYMBALTA) 30 mg capsule Take 60 mg by mouth daily 09/30/2017 06/09/2019 furosemide (LASIX) 20 mg tablet Take 1 tablet (20 mg total) by mouth 2 (two) times a day 60 tablet 06/05/2019 07/29/2019 levothyroxine (SYNTHROID) 50 mcg tablet Take 25 mcg by mouth 2 (two) times a day 1 03/24/2018 10/29/2020 losartan (COZAAR) 50 mg tablet Take 1 [...] 1 05/27/2019 06/09/2019 warfarin (COUMADIN) 2 mg tabletIndication s:atrial fibrillation,[place] ous Thrombosis Take 1 tablet (2 mg total) by mouth daily 30 tablet 06/05/2019 06/10/2019 zolpidem (AMBIEN) 5 mg tabletIndication s:Sleep-Onset Insomnia Take 5 mg by mouth nightly. at bedtime. 1 09/16/2017 06/13/2019 documented as of this encounter Ordered Prescriptions Prescription Sig Dispense Quantity Refills Last Filled Start Date End Date losartan (COZAAR) 50 mg tablet Take 1 tablet (50 mg total) by mouth daily 30 tablet 06/05/[address] (PROTONIX) 40 mg EC tabletIndications: Treatment of Non-Bleeding Gastric Disorder Take 1 tablet (40 mg total) by mouth daily 30 tablet 06/06/2019 0 acetaminophen 500 mg capsule Take 2 capsules (1,000 mg total) by mouth every 6 (six) hours as needed for pain 30 tablet 06/05/2019 0 warfarin (COUMADIN) 2 mg tabletIndications: atrial fibrillation,[place] Thrombosis Take 1 tablet (2 mg total) by mouth daily 30 tablet 06/05/2019 0 furosemide (LASIX) 20 mg tablet Take 1 tablet (20 mg total) by mouth 2 (two) times a day 60 tablet 06/05/2019 0 documented in this encounter Discharge Disposition Disposition Code Departure Means Destination Discharge to [facility] documented in this encounter Progress Notes * Yolanda Randle LCSW - 06/05/2019 11:18 AM CDT 06/05/19 1112 Discharge Summary Chart reviewed For Medical Necessity Does patient have a planned readmission to hospital planned? No Discharge Disposition SNF, Commercial Insurance, Short term Skilled Specify Facility [facility] Contact Number , Discharge Records Transfer Form Completed;Chart Copied Discharge Additional Assistance Does the patient need discharge transport arranged? Yes Has discharge transport been arranged? Yes Details of Transportation [facility], Trip #[id number] What day is the transport expected? 06/05/19 What time is the transport expected? 1400 [...] of care provider (see Follow Up Providers) Social Work has coordinated discharge plan. Patient has been accepted to [facility] in [place], [facility] auth #[id number]. RN informed to call report to [phone]. Social work faxed ordersto [phone]. Patient, family etc. are aware and are agreeable to plan. Transportation has been arranged via [facility] for pickling operator at 15:00, Trip #[id number]. Mode of transport has been discussed with the patient/family, doctors, nurses, and [facility] and all are agreeable to plan andunderstand their role to ensure the patient's safe transfer. No further social work intervention isanticipated at this time. Patient/family informed that while medical team will do everything possible for Medicare to pay forthe ambulance there is a chance that Medicare will not pay, as Medicare's criteria for ambulances are often stricter than the medical team. Social work informed patient/family that even if Medicare does pay, it may not cover the full cost of the trip as Medicare is now only covering the cost to nearest available facility. Social work informed patient/family that they will be responsible for the remainder of the bill. Patient/family voiced understanding. Yolanda BURRW, ASSURANCE ANALYST Night Time Babysitter [phone] * Kae Adkins MD - 06/05/2019 8:58 AM CDT Internal Medicine Daily Progress Subjective Chief complaint: Pulmonary embolism Interval History: NAEO. Patient worked with physical therapy yesterday and she has noted improvement in her knee pain. SOB with exertion and chest pain has also improved, as this is usually associated with her pain with exertion. INR stable at 2.0. Patient has decided on discharge to [facility] for continued rehab. Objective Scheduled Medications: carvediloL, 25 mg, oral, BID cholecalciferol, 2,000 Units, oral, Daily DULoxetine DR, 60 mg, oral, Daily furosemide, 20 mg, oral, BID DIURETIC insulin glargine, 10 Units, subcutaneous, QAM insulin lispro, 1-3 Units, subcutaneous, Nightly insulin lispro, 1-5 Units, subcutaneous, TID with meals levothyroxine, 25 mcg, oral, Daily lovastatin, 10 mg, oral, Nightly multivitamin with minerals, 1 tablet, oral, Daily pantoprazole DR, 40 mg, oral, Daily sodium chloride 0.9%, 0.5-20 mL, intra-catheter, Q8H MISHA warfarin, 2 mg, oral, Daily-1800 Continuous Medications: PRN Medications: ??? acetaminophen ??? calcium carbonate ??? ondansetron ??? oxyCODONE ??? senna-docusate ??? sodium chloride 0.9% ??? zolpidem Vitals: Most Recent : Vitals: 06/05/19 0402 BP: 134/87 Pulse: 105 Resp: 20 Temp: 36.9 ??C (98.5 ??F) SpO2: 94% 24hr Min/Max: Temp Min: 36.2 ??C (97.2 ??F) Max: 36.9 ??C (98.5 ??F) Pulse Min: 87 Max: 111 BP Min: 119/67 Max: 142/83 Resp Min: 18 Max: 20 SpO2 Min: 94 % Max: 95 % I/O: I/O last 2 completed shifts: In: 610 [P.O.:600; I.V.:10] Out: - No intake/output data recorded. Physical Exam: General: Not in acute distress. Lying comfortably in bed. HEENT: Sclera nonicteric. Moist mucous membranes. Cardiac: Irregular rhythm and regular rate. No JVD. Pulmonary: No respiratory distress on room air. Clear to auscultation bilaterally. Abdomen: Soft, nondistended, nontender. Extremities: Trace pitting edema bilaterally to midshin. Dressing over LLE, c/d/i. Warm and well perfused. Neurologic: Alert and oriented to person/place/time. Psychiatric: Anxious mood, congruent affect, pleasant and conversant. Lab/Radiology/Diagnostic Review: Recent Results (from the past 24 hour(s)) POCT glucose Collection Time: 06/04/19 11:18 AM Result Value Ref Range Glucose, POC 211 (H) 70 - 199 mg/dL POCT glucose Collection Time: 06/04/19 5:17 PM Result Value Ref Range Glucose, POC 150 70 - 199 mg/dL POCT glucose Collection Time: 06/04/19 8:03 PM Result Value Ref Range Glucose, POC 240 (H) 70 - 199 mg/dL Protime-INR Collection Time: 06/04/19 8:51 PM Result Value Ref Range PT 21.5 (H) 8.6 - 13.0 sec INR 2.0 (H) 0.8 - 1.2 CBC without differential Collection Time: 06/04/19 8:51 PM Result Value Ref Range WBC 7.5 3.8 - 9.9 K/cumm Hgb 7.7 (L) 11.9 - 15.5 g/dL Hct 25.8 (L) 35.6 - 45.5 % Plt 389 150 - 400 K/cumm MPV 10.3 9.1 - 12.3 fL RBC 2.59 (L) 3.90 - 5.20 M/cumm MCV 99.6 (H) 81.3 - 96.4 fL MCH 29.7 27.1 - 33.3 pg MCHC 29.8 (L) 32.3 - 35.7 g/dL RDW CV 16.5 (H) 11.1 - 14.9 % RDW SD 58.5 (H) 35.7 - 48.1 fL NRBC abs 0.04 (H) 0.00 - 0.01 K/cumm Basic metabolic panel Collection Time: 06/04/19 8:51 PM Result Value Ref Range Sodium 132 (L) 135 - 145 mmol/L Potassium, pl 3.8 3.3 - 4.9 mmol/L Chloride 100 97 - 110 mmol/L CO2 24 22 - 32 mmol/L Anion gap 8 2 - 15 mmol/L BUN 15 8 - 25 mg/dL Creatinine 0.65 0.60 - 1.10 mg/dL Glucose 171 70 - 199 mg/dL Calcium 8.5 8.5 - 10.3 mg/dL POCT glucose Collection Time: 06/05/19 7:38 AM Result Value Ref Range Glucose, POC 150 70 - 199 mg/dL I have reviewed the above laboratory results. Imaging Results: Xr Chest 1 View Result Date: 05/30/2019 Comparison with radiograph dated 05/21/2019 and 05/03/2010. Trace bilateral pleural effusions. Again seen is the right upper lobe nodular opacity, likely representing a calcified granuloma. No pneumothorax. Mildly enlarged cardiac silhouette. Calcified thoracic aorta. Dictated by: Thomas Ross M.D. The radiology attending physician has personally reviewed this study, and had reviewed and/or edited this written report and agrees with it. Electronically signed by: Tommy Dennison M.D. Assessment/Plan Acute pulmonary embolism with acute cor pulmonale (CMS/HCC) Assessment & Plan Presented with SOB, chest pain, Afib with [...] KAROL. Dilated inferior vena cava. Mild MR andTR. Moderate . - lower extremity dopplers positive for acute RLE DVT - Continue heparin gtt - s/p warfarin 5 mg load, transition to maintenance dose at 2 mg - increase lasix to 20 mg BID - Monitor INR daily * Atrial fibrillation with RVR (CMS/HCC) Assessment & Plan Patient with history of chronic Afib, previously cardioverted and maintained on sotalol, but with recent history of paroxysmal Afib, rate controlled on carvedilol 25 mg BID. Previously anticoagulatedon warfarin, reportedly recently adjusted to 2 mg MWF, and 1.5 mg on other days due to supratherapeutic INR. This was increased to 2 mg daily after her LLE surgery. Currently presented with RVR in setting of known PE. - s/p diltiazem gtt at OSH -> transitioned to IV amiodarone load in SICU - transitioned to metoprolol 05/30, increase to 50 mg q6h for rate control - transitioned back to home carvedilol 25 mg BID on 06/02 for continued rate control + HTN - heparin gtt discontinued 06/03 given warfarin therapeutic, continue warfarin 2 mg daily Left femoral fracture Assessment & Plan Recent distal femoral fracture s/p debridement on 05/21 and left knee arthroplasty with distal femoral replacement on 05/24. - Left lower extremity weight bearing as tolerated - Orthopedics following: theodore to stay in place until follow-up outpatient appointment - Pain control with Tylenol 1 g q6h PRN and oxycodone 5 mg q4h PRN second line - PT/OT Hypertension, essential Assessment & Plan Patient on amlodipine 5 mg, losartan 100 mg, carvedilol 25 mg BID, and HCTZ 25 mg at home - Currently holding home antihypertensives in setting of PE with soft blood pressures, restart as tolerated Diabetes mellitus type II, controlled ([facility]) Assessment & Plan Home regimen of metformin 1 g BID, semaglutide weekly. - A1c 6.5% on 05/30/19 - Continue lantus 10 units qhs with MDSSI Obstructive sleep apnea Assessment & Plan Continue home nocturnal CPAP Hypothyroidism, unspecified Assessment & Plan Continue home levothyroxine 25 mcg daily Code Status: Full Code Diet: Adult Diet Restricted; Consistent Carbohydrate DVT Prophylaxis: Heparin gtt Access: MIGEL Adkins MD 06/05/2019 9:05 AM Cosigned by Alessandro Erazo MD at 06/05/2019 11:57 AM CDT Associated attestation - Alessandro Erazo MD - 06/05/2019 11:57 AM CDT I have seen and examined the patient on 06/05/19. I agree with the findings and plan of care as documented in the resident's/fellow's note. * Kae Adkins MD - 06/04/2019 7:53 AM CDT Internal Medicine Daily Progress Subjective Chief complaint: Pulmonary embolism Interval History: NAEO. Patient sat in chair yesterday but continues to note worsened left knee pain with exertion requiring oxycodone. She continues to have SOB on exertion and chest discomfort in the setting of leftknee pain that resolves with rest. However, she reports that breathing and chest discomfort has improved this morning compared to yesterday. INR 2.0 today. Objective Scheduled Medications: carvediloL, 25 mg, oral, BID cholecalciferol, 2,000 Units, oral, Daily DULoxetine DR, 60 mg, oral, Daily furosemide, 20 mg, oral, BID DIURETIC insulin glargine, 10 Units, subcutaneous, QAM insulin lispro, 1-3 Units, subcutaneous, Nightly insulin lispro, 1-5 Units, subcutaneous, TID with meals levothyroxine, 25 mcg, oral, Daily lovastatin, 10 mg, oral, Nightly multivitamin with minerals, 1 tablet, oral, Daily pantoprazole DR, 40 mg, oral, Daily sodium chloride 0.9%, 0.5-20 mL, intra-catheter, Q8H MISHA warfarin, 2 mg, oral, Daily-1800 Continuous Medications: heparin, 1-33 Units/kg/hr, Last Rate: 14 Units/kg/hr (06/04/19 0523) PRN Medications: ??? acetaminophen ??? calcium carbonate ??? heparin OR heparin ??? ondansetron ??? oxyCODONE ??? senna-docusate ??? sodium chloride 0.9% ??? zolpidem Vitals: Most Recent : Vitals: 06/04/19 0543 BP: 134/88 Pulse: 88 Resp: 18 Temp: 36.6 ??C (97.9 ??F) SpO2: 97% 24hr Min/Max: Temp Min: 36.6 ??C (97.9 ??F) Max: 37 ??C (98.6 ??F) Pulse Min: 68 Max: 108 BP Min: 126/90 Max: 145/82 Resp Min: 18 Max: 20 SpO2 Min: 95 % Max: 97 % I/O: I/O last 2 completed shifts: In: 535 [P.O.:535] Out: - No intake/output data recorded. Physical Exam: General: Not in acute distress. Lying comfortably in bed. HEENT: Sclera nonicteric. Moist mucous membranes. Cardiac: Irregular rhythm and regular rate. No murmurs, rubs, or gallops. Pulmonary: No respiratory distress on room air. Clear to auscultation bilaterally. Abdomen: Soft, nondistended, nontender. Extremities: Trace pitting edema bilaterally to midshin. Dressing over LLE, c/d/i. Warm and well perfused. Neurologic: Alert and oriented to person/place/time. Psychiatric: Anxious mood, congruent affect, pleasant and conversant. Lab/Radiology/Diagnostic Review: Recent Results (from the past 24 hour(s)) POCT glucose Collection Time: 06/03/19 11:31 AM Result Value Ref Range Glucose, POC 154 70 - 199 mg/dL POCT glucose Collection Time: 06/03/19 4:36 PM Result Value Ref Range Glucose, POC 157 70 - 199 mg/dL POCT glucose Collection Time: 06/03/19 8:05 PM Result Value Ref Range Glucose, POC 215 (H) 70 - 199 mg/dL aPTT Collection Time: 06/03/19 10:17 PM Result Value Ref Range aPTT 84 (H) 25 - 37 sec Protime-INR Collection Time: 06/03/19 10:17 PM Result Value Ref Range PT 22.0 (H) 8.6 - 13.0 sec INR 2.0 (H) 0.8 - 1.2 CBC without differential Collection Time: 06/03/19 10:17 PM Result Value Ref Range WBC 9.0 3.8 - 9.9 K/cumm Hgb 7.7 (L) 11.9 - 15.5 g/dL Hct 25.2 (L) 35.6 - 45.5 % Plt 398 150 - 400 K/cumm MPV 10.5 9.1 - 12.3 fL RBC 2.54 (L) 3.90 - 5.20 M/cumm MCV 99.2 (H) 81.3 - 96.4 fL MCH 30.3 27.1 - 33.3 pg MCHC 30.6 (L) 32.3 - 35.7 g/dL RDW CV 16.4 (H) 11.1 - 14.9 % RDW SD 58.0 (H) 35.7 - 48.1 fL NRBC abs 0.06 (H) 0.00 - 0.01 K/cumm Basic metabolic panel Collection Time: 06/03/19 10:17 PM Result Value Ref Range Sodium 134 (L) 135 - 145 mmol/L Potassium, pl 3.7 3.3 - 4.9 mmol/L Chloride 100 97 - 110 mmol/L CO2 28 22 - 32 mmol/L Anion gap 6 2 - 15 mmol/L BUN 14 8 - 25 mg/dL Creatinine 0.58 (L) 0.60 - 1.10 mg/dL Glucose 148 70 - 199 mg/dL Calcium 8.3 (L) 8.5 - 10.3 mg/dL POCT glucose Collection Time: 06/04/19 7:44 AM Result Value Ref Range Glucose, POC 148 70 - 199 mg/dL I have reviewed the above laboratory results. Imaging Results: Xr Chest 1 View Result Date: 05/30/2019 Comparison with radiograph dated 05/21/2019 and 05/03/2010. Trace bilateral pleural effusions. Again seen is the right upper lobe nodular opacity, likely representing a calcified granuloma. No pneumothorax. Mildly enlarged cardiac silhouette. Calcified thoracic aorta. Dictated by: Thomas Ross M.D. The radiology attending physician has personally reviewed this study, and had reviewed and/or edited this written report and agrees with it. Electronically signed by: Tommy Dennison M.D. Assessment/Plan Acute pulmonary embolism with acute cor pulmonale (CMS/HCC) Assessment & Plan Presented with SOB, chest pain, Afib with [...] KAROL. Dilated inferior vena cava. Mild MR andTR. Moderate . - lower extremity dopplers positive for acute RLE DVT - Continue heparin gtt - s/p warfarin 5 mg load, transition to maintenance dose at 2 mg - increase lasix to 20 mg BID - Monitor INR daily * Atrial fibrillation with RVR (CMS/HCC) Assessment & Plan Patient with history of chronic Afib, previously cardioverted and maintained on sotalol, but with recent history of paroxysmal Afib, rate controlled on carvedilol 25 mg BID. Previously anticoagulatedon warfarin, reportedly recently adjusted to 2 mg MWF, and 1.5 mg on other days due to supratherapeutic INR. This was increased to 2 mg daily after her LLE surgery. Currently presented with RVR in setting of known PE. - s/p diltiazem gtt at OSH -> transitioned to IV amiodarone load in SICU - transitioned to metoprolol 05/30, increase to 50 mg q6h for rate control - transitioned back to home carvedilol 25 mg BID on 06/02 for continued rate control + HTN - continue heparin gtt for anticoagulation with bridge to warfarin as for PE management Left femoral fracture Assessment & Plan Recent distal femoral fracture s/p debridement on 05/21 and left knee arthroplasty with distal femoral replacement on 05/24. - Left lower extremity weight bearing as tolerated - Orthopedics following: theodore to stay in place until follow-up outpatient appointment - Pain control with Tylenol 1 g q6h PRN and oxycodone 5 mg q4h PRN second line - PT/OT Hypertension, essential Assessment & Plan Patient on amlodipine 5 mg, losartan 100 mg, carvedilol 25 mg BID, and HCTZ 25 mg at home - Currently holding home antihypertensives in setting of PE with soft blood pressures, restart as tolerated Diabetes mellitus type II, controlled ([facility]) Assessment & Plan Home regimen of metformin 1 g BID, semaglutide weekly. - A1c 6.5% on 05/30/19 - Continue lantus 10 units qhs with MDSSI Obstructive sleep apnea Assessment & Plan Continue home nocturnal CPAP Hypothyroidism, unspecified Assessment & Plan Continue home levothyroxine 25 mcg daily Code Status: Full Code Diet: Adult Diet Restricted; Consistent Carbohydrate DVT Prophylaxis: Heparin gtt Access: MIGEL Adkins MD 06/04/2019 7:58 AM Cosigned by Alessandro Erazo MD at 06/05/2019 11:49 AM CDT Associated attestation - Alessandro Erazo MD - 06/05/2019 11:49 AM CDT I have seen and examined the patient on 06/04/2019. I agree with the findings and plan of care as documented in the resident's/fellow's note. Stopping heparin drip with INR at 2. * Kae Adkins MD - 06/03/2019 9:19 AM CDT Internal Medicine Daily Progress Subjective Chief complaint: Pulmonary embolism Interval History: NAEO. Patient was able to work with physical therapy yesterday and transferred to chair. She continues to endorse SOB with exertion, but otherwise feels well at rest and denies chest pain/pressure. Her post-operative pain is well controlled with tylenol 1 g PRN. INR 1.9 today. Objective Scheduled Medications: cholecalciferol, 2,000 Units, oral, Daily DULoxetine DR, 60 mg, oral, Daily furosemide, 20 mg, oral, BID DIURETIC insulin glargine, 10 Units, subcutaneous, QAM insulin lispro, 1-3 Units, subcutaneous, Nightly insulin lispro, 1-5 Units, subcutaneous, TID with meals levothyroxine, 25 mcg, oral, Daily lovastatin, 10 mg, oral, Nightly metoprolol (LOPRESSOR) tablet/capsule, 50 mg, oral, Q6H MISHA multivitamin with minerals, 1 tablet, oral, Daily pantoprazole DR, 40 mg, oral, Daily sodium chloride 0.9%, 0.5-20 mL, intra-catheter, Q8H MISHA warfarin, 2 mg, oral, Daily-1800 Continuous Medications: heparin, 1-33 Units/kg/hr, Last Rate: 14 Units/kg/hr (06/03/19 0850) PRN Medications: ??? acetaminophen ??? calcium carbonate ??? heparin OR heparin ??? ondansetron ??? oxyCODONE ??? senna-docusate ??? sodium chloride 0.9% Vitals: Most Recent : Vitals: 06/03/19 0800 BP: Pulse: (P) 108 Resp: Temp: SpO2: 24hr Min/Max: Temp Min: 37.3 ??C (99.1 ??F) Max: 37.5 ??C (99.5 ??F) Pulse Min: 55 Max: 108 BP Min: 122/73 Max: 140/69 Resp Min: 18 Max: 20 SpO2 Min: 93 % Max: 95 % I/O: I/O last 2 completed shifts: In: 235 [P.O.:235] Out: - No intake/output data recorded. Physical Exam: General: Not in acute distress. Lying comfortably in bed. HEENT: Sclera nonicteric. Moist mucous membranes. Cardiac: Irregular rhythm and regular rate. No murmurs, rubs, or gallops. Pulmonary: No respiratory distress on room air. Clear to auscultation bilaterally. Abdomen: Soft, nondistended, nontender. Extremities: 1+ pitting edema bilaterally to midshin. Dressing over LLE, c/d/i. Warm and well perfused. Neurologic: Alert and oriented to person/place/time. Psychiatric: Appropriate mood and affect, pleasant and conversant. Lab/Radiology/Diagnostic Review: Recent Results (from the past 24 hour(s)) POCT glucose Collection Time: 06/02/19 11:20 AM Result Value Ref Range Glucose, POC 173 70 - 199 mg/dL POCT glucose Collection Time: 06/02/19 4:38 PM Result Value Ref Range Glucose, POC 168 70 - 199 mg/dL POCT glucose Collection Time: 06/02/19 8:53 PM Result Value Ref Range Glucose, POC 200 (H) 70 - 199 mg/dL aPTT Collection Time: 06/02/19 11:04 PM Result Value Ref Range aPTT 89 (H) 25 - 37 sec Protime-INR Collection Time: 06/02/19 11:04 PM Result Value Ref Range PT 20.6 (H) 8.6 - 13.0 sec INR 1.9 (H) 0.8 - 1.2 CBC without differential Collection Time: 06/02/19 11:04 PM Result Value Ref Range WBC 11.3 (H) 3.8 - 9.9 K/cumm Hgb 8.3 (L) 11.9 - 15.5 g/dL Hct 26.5 (L) 35.6 - 45.5 % Plt 414 (H) 150 - 400 K/cumm MPV 10.7 9.1 - 12.3 fL RBC 2.68 (L) 3.90 - 5.20 M/cumm MCV 98.9 (H) 81.3 - 96.4 fL MCH 31.0 27.1 - 33.3 pg MCHC 31.3 (L) 32.3 - 35.7 g/dL RDW CV 16.4 (H) 11.1 - 14.9 % RDW SD 57.2 (H) 35.7 - 48.1 fL NRBC abs 0.09 (H) 0.00 - 0.01 K/cumm POCT glucose Collection Time: 06/03/19 7:39 AM Result Value Ref Range Glucose, POC 161 70 - 199 mg/dL I have reviewed the above laboratory results. Imaging Results: Xr Chest 1 View Result Date: 05/30/2019 Comparison with radiograph dated 05/21/2019 and 05/03/2010. Trace bilateral pleural effusions. Again seen is the right upper lobe nodular opacity, likely representing a calcified granuloma. No pneumothorax. Mildly enlarged cardiac silhouette. Calcified thoracic aorta. Dictated by: Thomas Ross M.D. The radiology attending physician has personally reviewed this study, and had reviewed and/or edited this written report and agrees with it. Electronically signed by: Tommy Dennison M.D. Assessment/Plan Acute pulmonary embolism with acute cor pulmonale (CMS/HCC) Assessment & Plan Presented with SOB, chest pain, Afib with [...] KAROL. Dilated inferior vena cava. Mild MR andTR. Moderate . - lower extremity dopplers positive for acute RLE DVT - Continue heparin gtt - s/p warfarin 5 mg load, transition to maintenance dose at 2 mg - increase lasix to 20 mg BID - Monitor INR daily * Atrial fibrillation with RVR (CMS/HCC) Assessment & Plan Patient with history of chronic Afib, previously cardioverted and maintained on sotalol, but with recent history of paroxysmal Afib, rate controlled on carvedilol 25 mg BID. Previously anticoagulatedon warfarin, reportedly recently adjusted to 2 mg MWF, and 1.5 mg on other days due to supratherapeutic INR. This was increased to 2 mg daily after her LLE surgery. Currently presented with RVR in setting of known PE. - s/p diltiazem gtt at OSH -> transitioned to IV amiodarone load in SICU - transitioned to metoprolol 05/30, increase to 50 mg q6h for rate control - continue heparin gtt for anticoagulation with bridge to warfarin as for PE management Left femoral fracture Assessment & Plan Recent distal femoral fracture s/p debridement on 05/21 and left knee arthroplasty with distal femoral replacement on 05/24. - Left lower extremity weight bearing as tolerated - Orthopedics following - Pain control with Tylenol 1 g q6h PRN and oxycodone 5 mg q6h PRN second line - PT/OT Hypertension, essential Assessment & Plan Patient on amlodipine 5 mg, losartan 100 mg, carvedilol 25 mg BID, and HCTZ 25 mg at home - Currently holding home antihypertensives in setting of PE with soft blood pressures Diabetes mellitus type II, controlled ([facility]) Assessment & Plan Home regimen of metformin 1 g BID, semaglutide weekly. - A1c 6.5% on 05/30/19 - Continue lantus 10 units qhs with MDSSI Obstructive sleep apnea Assessment & Plan Continue home nocturnal CPAP Hypothyroidism, unspecified Assessment & Plan Continue home levothyroxine 25 mcg daily Code Status: Full Code Diet: Adult Diet Restricted; Consistent Carbohydrate DVT Prophylaxis: Heparin gtt Access: PIV Khanh Adkins MD 06/03/2019 9:19 AM Cosigned by Alessandro Erazo MD at 06/03/2019 10:53 AM CDT Associated attestation - Alessandro Erazo MD - 06/03/2019 10:53 AM CDT I have seen and examined the patient on 06/03/19. I agree with the findings and plan of care as documented in the resident's/fellow's note. * Suzanne Romo MD - 06/03/2019 7:07 AM CDT . Ortho Recon Daily Progress Subjective 79 y/o F POD 9 s/p L distal femur replacement readmitted for PE in setting of subtherapeutic INR Interval History: pain well controlled. Ambulated to bedside chair yesterday. Knee pain stable Objective Vitals: 24hr Min/Max: Temp Min: 37.3 ??C (99.1 ??F) Max: 37.5 ??C (99.5 ??F) Pulse Min: 55 Max: 100 BP Min: 122/73 Max: 140/69 Resp Min: 18 Max: 20 SpO2 Min: 93 % Max: 95 % Most Recent : Vitals: 06/03/19 0446 BP: 124/68 Pulse: 86 Resp: 18 Temp: 37.3 ??C (99.1 ??F) SpO2: 93% I/O last 2 completed shifts: In: 235 [P.O.:235] Out: - No intake/output data recorded. Surgical Site 05/22/19 Left Leg (Active) Site Assessment MICHAEL 06/01/2019 8:05 PM Taya-wound Assessment MICHAEL 05/27/2019 8:02 AM Closure Unable to assess 05/27/2019 8:02 AM Drainage Amount None 06/01/2019 8:10 AM Drainage Description MICHAEL 05/26/2019 9:38 PM Drainage Odor No odor 06/01/2019 8:10 AM Dressing Status Clean/Dry/Intact 06/02/2019 8:00 AM Dressing Mili wrap 05/27/2019 8:02 AM Interventions Other (Comment) 05/25/2019 9:00 PM Surgical Site 05/25/19 Left Knee (Active) Site Assessment MICHAEL 06/01/2019 8:05 PM Taya-wound Assessment Dry;Intact;Color appropriate for ethnicity 05/31/2019 7:45 PM Closure Unable to assess 05/31/2019 7:45 PM Drainage Amount None 05/31/2019 7:45 PM Drainage Description MICHAEL 05/31/2019 7:45 PM Drainage Odor No odor 05/31/2019 7:45 PM Dressing Status Clean/Dry/Intact 06/01/2019 8:05 PM Dressing Dry dressing 06/01/2019 8:05 PM Adhesive Closure Strips Applied 05/25/2019 2:30 PM Interventions Other (Comment) 05/31/2019 7:45 PM Physical Exam: Awake, alert, oriented No acute distress Breathing regular and unlabored Dressing clean and dry Sensation intact in the superficial peroneal, deep peroneal, and tibial nerves 5/5 strength TA, GS, EHL, FHL Dorsalis pedis pulse on affected limb palpable Lab/Radiology/Diagnostic Review: Laboratory review: Chemistry BMP Lab Results Component Value Date GLUCOSE 200 (H) 06/02/2019 GLUCOSE 189 06/01/2019 CALCIUM 8.5 06/01/2019 SODIUM 134 (L) 06/01/2019 POTASSIUM 3.1 (L) 06/01/2019 CO2 28 06/01/2019 BUNSER 18 06/01/2019 CREATININE 0.62 06/01/2019 , CBC: Lab Results Component Value Date WBC 11.3 (H) 06/02/2019 RBC 2.68 (L) 06/02/2019 HGB 8.3 (L) 06/02/2019 HCT 26.5 (L) 06/02/2019 MCV 98.9 (H) 06/02/2019 MCH 31.0 06/02/2019 MCHC 31.3 (L) 06/02/2019 RDWCV 16.4 (H) 06/02/2019 RDWSD 57.2 (H) 06/02/2019 MPV 10.7 06/02/2019 NRBCABS 0.09 (H) 06/02/2019 and Coags: Lab Results Component Value Date PT 20.6 (H) 06/02/2019 APTT 89 (H) 06/02/2019 INR 1.9 (H) 06/02/2019 Assessment/Plan Appreciate Medicine care WBAT LLE Mobilize w/ PT daily Dressing: Please leave steris/theodore and dressing in place Pain per primary, currently controlled heparin gtt for therapeutic AC Additional needs: None Dispo: Per primary. Please do not hesitate to call with any questions or concerns .Suzanne Romo MD PGY-5 [facility] * Kae Adkins MD - 06/02/2019 9:19 AM CDT Internal Medicine Daily Progress Subjective Chief complaint: Pulmonary embolism Interval History: NAEO. Patient continues to endorse mild SOB worsened with exertion, though patient reports that SOBand weakness appears to have been gradually progressing since before her surgery. She continues to feel anxious and frustrated with her left leg weakness and slow recovery, but understands that she will benefit from going to a SNF/rehab upon discharge. Objective Scheduled Medications: cholecalciferol, 2,000 Units, oral, Daily DULoxetine DR, 60 mg, oral, Daily furosemide, 20 mg, oral, BID DIURETIC insulin glargine, 10 Units, subcutaneous, QAM insulin lispro, 1-3 Units, subcutaneous, Nightly insulin lispro, 1-5 Units, subcutaneous, TID with meals levothyroxine, 25 mcg, oral, Daily lovastatin, 10 mg, oral, Nightly metoprolol (LOPRESSOR) tablet/capsule, 50 mg, oral, Q6H MISHA multivitamin with minerals, 1 tablet, oral, Daily pantoprazole DR, 40 mg, oral, Daily sodium chloride 0.9%, 0.5-20 mL, intra-catheter, Q8H MISHA warfarin, 2 mg, oral, Daily-1800 Continuous Medications: heparin, 1-33 Units/kg/hr, Last Rate: 14 Units/kg/hr (06/01/19 2204) PRN Medications: ??? acetaminophen ??? calcium carbonate ??? heparin OR heparin ??? ondansetron ??? oxyCODONE ??? senna-docusate ??? sodium chloride 0.9% Vitals: Most Recent : Vitals: 06/02/19 0930 BP: 131/99 Pulse: 92 Resp: Temp: SpO2: 94% 24hr Min/Max: Temp Min: 36.6 ??C (97.9 ??F) Max: 37.6 ??C (99.6 ??F) Pulse Min: 60 Max: 94 BP Min: 113/76 Max: 139/96 Resp Min: 18 Max: 20 SpO2 Min: 93 % Max: 95 % I/O: I/O last 2 completed shifts: In: 500 [P.O.:500] Out: 200 [Urine:200] No intake/output data recorded. Physical Exam: General: Not in acute distress. Lying comfortably in bed. HEENT: Sclera nonicteric. Moist mucous membranes. Cardiac: Irregular rhythm and regular rate. No murmurs, rubs, or gallops. Pulmonary: No respiratory distress on room air. Clear to auscultation bilaterally. Abdomen: Soft, nondistended, nontender. Extremities: 1+ pitting edema bilaterally to midshin. Dressing over LLE, c/d/i. Warm and well perfused. Neurologic: Alert and oriented to person/place/time. Psychiatric: Appropriate mood and affect, pleasant and conversant. Lab/Radiology/Diagnostic Review: Recent Results (from the past 24 hour(s)) POCT glucose Collection Time: 06/01/19 11:28 AM Result Value Ref Range Glucose, POC 183 70 - 199 mg/dL POCT glucose Collection Time: 06/01/19 4:51 PM Result Value Ref Range Glucose, POC 152 70 - 199 mg/dL aPTT Collection Time: 06/01/19 8:08 PM Result Value Ref Range aPTT 76 (H) 25 - 37 sec Protime-INR Collection Time: 06/01/19 8:08 PM Result Value Ref Range PT 19.6 (H) 8.6 - 13.0 sec INR 1.8 (H) 0.8 - 1.2 CBC without differential Collection Time: 06/01/19 8:08 PM Result Value Ref Range WBC 9.7 3.8 - 9.9 K/cumm Hgb 8.2 (L) 11.9 - 15.5 g/dL Hct 26.9 (L) 35.6 - 45.5 % Plt 371 150 - 400 K/cumm MPV 10.6 9.1 - 12.3 fL RBC 2.74 (L) 3.90 - 5.20 M/cumm MCV 98.2 (H) 81.3 - 96.4 fL MCH 29.9 27.1 - 33.3 pg MCHC 30.5 (L) 32.3 - 35.7 g/dL RDW CV 16.1 (H) 11.1 - 14.9 % RDW SD 55.6 (H) 35.7 - 48.1 fL NRBC abs 0.10 (H) 0.00 - 0.01 K/cumm Basic metabolic panel Collection Time: 06/01/19 8:08 PM Result Value Ref Range Sodium 134 (L) 135 - 145 mmol/L Potassium, pl 3.1 (L) 3.3 - 4.9 mmol/L Chloride 98 97 - 110 mmol/L CO2 28 22 - 32 mmol/L Anion gap 8 2 - 15 mmol/L BUN 18 8 - 25 mg/dL Creatinine 0.62 0.60 - 1.10 mg/dL Glucose 189 70 - 199 mg/dL Calcium 8.5 8.5 - 10.3 mg/dL POCT glucose Collection Time: 06/01/19 8:20 PM Result Value Ref Range Glucose, POC 204 (H) 70 - 199 mg/dL POCT glucose Collection Time: 06/02/19 7:29 AM Result Value Ref Range Glucose, POC 156 70 - 199 mg/dL I have reviewed the above laboratory results. Imaging Results: Xr Chest 1 View Result Date: 05/30/2019 Comparison with radiograph dated 05/21/2019 and 05/03/2010. Trace bilateral pleural effusions. Again seen is the right upper lobe nodular opacity, likely representing a calcified granuloma. No pneumothorax. Mildly enlarged cardiac silhouette. Calcified thoracic aorta. Dictated by: Thomas Ross M.D. The radiology attending physician has personally reviewed this study, and had reviewed and/or edited this written report and agrees with it. Electronically signed by: Tommy Dennison M.D. Assessment/Plan Acute pulmonary embolism with acute cor pulmonale (CMS/HCC) Assessment & Plan Presented with SOB, chest pain, Afib with [...] KAROL. Dilated inferior vena cava. Mild MR andTR. Moderate . - lower extremity dopplers positive for acute RLE DVT - Continue heparin gtt - s/p warfarin 5 mg load, transition to maintenance dose at 2 mg - increase lasix to 20 mg BID - Monitor INR daily * Atrial fibrillation with RVR (CMS/HCC) Assessment & Plan Patient with history of chronic Afib, previously cardioverted and maintained on sotalol, but with recent history of paroxysmal Afib, rate controlled on carvedilol 25 mg BID. Previously anticoagulatedon warfarin, reportedly recently adjusted to 2 mg MWF, and 1.5 mg on other days due to supratherapeutic INR. This was increased to 2 mg daily after her LLE surgery. Currently presented with RVR in setting of known PE. - s/p diltiazem gtt at OSH -> transitioned to IV amiodarone load in SICU - transitioned to metoprolol 05/30, increase to 50 mg q6h for rate control - continue heparin gtt for anticoagulation with bridge to warfarin as for PE management Left femoral fracture Assessment & Plan Recent distal femoral fracture s/p debridement on 05/21 and left knee arthroplasty with distal femoral replacement on 05/24. - Left lower extremity weight bearing as tolerated - Orthopedics following - Pain control with Tylenol 1 g q6h PRN and oxycodone 5 mg q6h PRN second line - PT/OT Hypertension, essential Assessment & Plan Patient on amlodipine 5 mg, losartan 100 mg, carvedilol 25 mg BID, and HCTZ 25 mg at home - Currently holding home antihypertensives in setting of PE with soft blood pressures Diabetes mellitus type II, controlled ([facility]) Assessment & Plan Home regimen of metformin 1 g BID, semaglutide weekly. - A1c 6.5% on 05/30/19 - Continue lantus 10 units qhs with MDSSI Obstructive sleep apnea Assessment & Plan Continue home nocturnal CPAP Hypothyroidism, unspecified Assessment & Plan Continue home levothyroxine 25 mcg daily Code Status: Full Code Diet: Adult Diet Restricted; Consistent Carbohydrate DVT Prophylaxis: Heparin gtt Access: PIV Khanh Adkins MD 06/02/2019 9:36 AM Cosigned by Alessandro Erazo MD at 06/03/2019 10:52 AM CDT Associated attestation - Alessandro Erazo MD - 06/03/2019 10:52 AM CDT I have seen and examined the patient on 06/02/2019. I agree with the findings and plan of care as documented in the resident's/fellow's note. * Suzie Wu MD - 06/02/2019 6:02 AM CDT Ortho Recon Daily Progress Subjective Prema Hodgson [id number] 79 y/o F POD 8 s/p L distal femur replaceent. S: Doing well, PT did not see yesterday. Frustrated by weakness and feeling of instability in knee.She still reports stiffness. Discussed that she is doing the right things by working to get out of bed/walk. She is behind in her recovery due to the complication of PE but has the right attitude of recovery. O: AF, VSS LLE NVI Dressing c/d/i Cr 0.59 K 3.1 INR 1.8 Plan: Appreciate Medicine care WBAT LLE Mobilize w/ PT Daily, re-ordered this morning to ensure sessions Dressing: Please leave steris/theodore in place Pain per primary, currently controlled heparin gtt for therapeutic AC Additional needs: None Dispo: Per primary. Please do not hesitate to call with any questions or concerns Recent Labs Lab Units 06/01/[id number]/192007 HEMOGLOBIN g/dL -- 8.2* HEMATOCRIT % -- 26.9* SODIUM mmol/L -- 134* POTASSIUM PLASMA mmol/L -- 3.1* CREATININE mg/dL -- 0.62 GLUCOSE mg/dL -- 189 POC GLUCOSE MONITOR mg/dL 204* -- PROTIME (PT) sec -- 19.6* INR -- 1.8* Objective Vitals: 24hr Min/Max: Temp Min: 36.6 ??C (97.9 ??F) Max: 37.6 ??C (99.6 ??F) Pulse Min: 60 Max: 94 BP Min: 113/76 Max: 139/96 Resp Min: 18 Max: 20 SpO2 Min: 93 % Max: 97 % Most Recent : Vitals: 06/02/19 0306 BP: 139/96 Pulse: 94 Resp: 18 Temp: 37.5 ??C (99.5 ??F) SpO2: 95% I/O last 2 completed shifts: In: 500 [P.O.:500] Out: 250 [Urine:250] No intake/output data recorded. Urethral Catheter Temperature probe 14 Fr. (Active) Site Assessment Clean;Skin intact 05/30/2019 7:00 PM Catheter Status Open to gravity drainage 05/30/2019 7:00 PM Urine Collection Container Drainage bag with urometer 05/30/2019 7:00 PM Securement Method N/A 05/30/2019 7:00 PM Reason for Continuing Urinary Catheterization I&O critical for hourly patient management or hemodynamic instability 05/30/2019 7:00 PM Urinary tube output (mL) 225 mL 05/31/2019 4:18 AM Urinary Tube Net Output (mL) 225 mL 05/31/2019 4:18 AM Surgical Site 05/22/19 Left Leg (Active) Surgical Site 05/25/19 Left Knee (Active) Site Assessment MICHAEL 05/30/2019 7:00 PM Taya-wound Assessment Dry;Intact 05/30/2019 7:00 PM Closure Unable to assess 05/30/2019 7:00 PM Drainage Amount None 05/30/2019 7:00 PM Drainage Description MICHAEL 05/29/2019 9:16 PM Drainage Odor No odor 05/29/2019 9:16 PM Dressing Status Changed;Clean/Dry/Intact;Other (Comment) 05/30/2019 7:00 PM Dressing Other (Comment) 05/30/2019 7:00 PM Interventions Other (Comment) 05/30/2019 7:00 PM Physical Exam: Awake, alert, oriented No acute distress Breathing regular and unlabored, NC in place with O2 support Dressing clean and dry Sensation intact in the superficial peroneal, deep peroneal, and tibial nerves 5/5 strength TA, GS, EHL, FHL Dorsalis pedis pulse on affected limb palpable Lab/Radiology/Diagnostic Review: Laboratory review: Lab results in the last 12 hours: Recent Results (from the past 12 hour(s)) aPTT Collection Time: 06/01/19 8:08 PM Result Value Ref Range aPTT 76 (H) 25 - 37 sec Protime-INR Collection Time: 06/01/19 8:08 PM Result Value Ref Range PT 19.6 (H) 8.6 - 13.0 sec INR 1.8 (H) 0.8 - 1.2 CBC without differential Collection Time: 06/01/19 8:08 PM Result Value Ref Range WBC 9.7 3.8 - 9.9 K/cumm Hgb 8.2 (L) 11.9 - 15.5 g/dL Hct 26.9 (L) 35.6 - 45.5 % Plt 371 150 - 400 K/cumm MPV 10.6 9.1 - 12.3 fL RBC 2.74 (L) 3.90 - 5.20 M/cumm MCV 98.2 (H) 81.3 - 96.4 fL MCH 29.9 27.1 - 33.3 pg MCHC 30.5 (L) 32.3 - 35.7 g/dL RDW CV 16.1 (H) 11.1 - 14.9 % RDW SD 55.6 (H) 35.7 - 48.1 fL NRBC abs 0.10 (H) 0.00 - 0.01 K/cumm Basic metabolic panel Collection Time: 06/01/19 8:08 PM Result Value Ref Range Sodium 134 (L) 135 - 145 mmol/L Potassium, pl 3.1 (L) 3.3 - 4.9 mmol/L Chloride 98 97 - 110 mmol/L CO2 28 22 - 32 mmol/L Anion gap 8 2 - 15 mmol/L BUN 18 8 - 25 mg/dL Creatinine 0.62 0.60 - 1.10 mg/dL Glucose 189 70 - 199 mg/dL Calcium 8.5 8.5 - 10.3 mg/dL POCT glucose Collection Time: 06/01/19 8:20 PM Result Value Ref Range Glucose, POC 204 (H) 70 - 199 mg/dL Giovanna Wu MD Orthopaedic Surgery, PGY-2 ?? During normal business hours - If you know the resident's name on the appropriate orthopaedic surgery team, please use [employer] to page resident directly. ?? If you have questions overnight or can't reach the appropriate resident, please call the Orthopaedic Surgery Consult Pager [phone] to have your questions answered or be directed to the correct Orthopaedic Surgery resident. * Kae Adkins MD - 06/01/2019 1:04 PM CDT Internal Medicine Daily Progress Subjective Chief complaint: Pulmonary embolism Interval History: NAEO. This AM, patient continues to endorse mild chest pressure that worsens with exertion, but otherwise denies SOB. This is complicated by anxiety about her clinical course and time to recovery, which worsens her symptoms. She also reports mild abdominal bloating and belching, but denies abdominal pain, poor PO tolerance, nausea/vomiting. Objective Scheduled Medications: cholecalciferol, 2,000 Units, oral, Daily DULoxetine DR, 60 mg, oral, Daily furosemide, 20 mg, oral, Daily insulin glargine, 10 Units, subcutaneous, QAM insulin lispro, 1-3 Units, subcutaneous, Nightly insulin lispro, 1-5 Units, subcutaneous, TID with meals levothyroxine, 25 mcg, oral, Daily lovastatin, 10 mg, oral, Nightly metoprolol (LOPRESSOR) tablet/capsule, 50 mg, oral, Q6H MISHA multivitamin with minerals, 1 tablet, oral, Daily pantoprazole DR, 40 mg, oral, Daily sodium chloride 0.9%, 0.5-20 mL, intra-catheter, Q8H MISHA warfarin, 2 mg, oral, Daily-1800 Continuous Medications: heparin, 1-33 Units/kg/hr, Last Rate: 14 Units/kg/hr (05/31/19 2314) PRN Medications: ??? acetaminophen ??? calcium carbonate ??? heparin OR heparin ??? ondansetron ??? oxyCODONE ??? senna-docusate ??? sodium chloride 0.9% Vitals: Most Recent : Vitals: 06/01/19 1000 BP: 113/76 Pulse: 92 Resp: 18 Temp: 36.7 ??C (98.1 ??F) SpO2: 93% 24hr Min/Max: Temp Min: 36.5 ??C (97.7 ??F) Max: 37.4 ??C (99.3 ??F) Pulse Min: 89 Max: 114 BP Min: 98/76 Max: 127/59 Resp Min: 16 Max: 21 SpO2 Min: 93 % Max: 99 % I/O: I/O last 2 completed shifts: In: 999.9 [P.O.:900; I.V.:99.9] Out: 685 [Urine:685] No intake/output data recorded. Physical Exam: General: Not in acute distress. Lying comfortably in bed. HEENT: Sclera nonicteric. Moist mucous membranes. Cardiac: Irregular rhythm and regular rate. No murmurs, rubs, or gallops. Pulmonary: No respiratory distress on room air. Clear to auscultation bilaterally. Abdomen: Soft, nondistended, nontender. Extremities: Trace nonpitting edema bilaterally. Dressing over LLE, c/d/i. Warm and well perfused. Neurologic: Alert and oriented to person/place/time. Psychiatric: Appropriate mood and affect, pleasant and conversant. Lab/Radiology/Diagnostic Review: Recent Results (from the past 24 hour(s)) POCT glucose Collection Time: 05/31/19 5:15 PM Result Value Ref Range Glucose, POC 168 70 - 199 mg/dL POCT glucose Collection Time: 05/31/19 8:53 PM Result Value Ref Range Glucose, POC 155 70 - 199 mg/dL CBC without differential Collection Time: 05/31/19 9:07 PM Result Value Ref Range WBC 11.1 (H) 3.8 - 9.9 K/cumm Hgb 8.6 (L) 11.9 - 15.5 g/dL Hct 27.9 (L) 35.6 - 45.5 % Plt 322 150 - 400 K/cumm MPV 10.8 9.1 - 12.3 fL RBC 2.78 (L) 3.90 - 5.20 M/cumm MCV 100.4 (H) 81.3 - 96.4 fL MCH 30.9 27.1 - 33.3 pg MCHC 30.8 (L) 32.3 - 35.7 g/dL RDW CV 16.1 (H) 11.1 - 14.9 % RDW SD 57.0 (H) 35.7 - 48.1 fL NRBC abs 0.17 (H) 0.00 - 0.01 K/cumm Basic metabolic panel Collection Time: 05/31/19 9:07 PM Result Value Ref Range Sodium 136 135 - 145 mmol/L Potassium, pl 4.6 3.3 - 4.9 mmol/L Chloride 99 97 - 110 mmol/L CO2 26 22 - 32 mmol/L Anion gap 11 2 - 15 mmol/L BUN 18 8 - 25 mg/dL Creatinine 0.59 (L) 0.60 - 1.10 mg/dL Glucose 148 70 - 199 mg/dL Calcium 8.7 8.5 - 10.3 mg/dL Magnesium Collection Time: 05/31/19 9:07 PM Result Value Ref Range Magnesium 1.7 1.4 - 2.5 mg/dL Protime-INR Collection Time: 05/31/19 9:07 PM Result Value Ref Range PT 17.2 (H) 8.6 - 13.0 sec INR 1.6 (H) 0.8 - 1.2 aPTT Collection Time: 05/31/19 9:07 PM Result Value Ref Range aPTT 60 (H) 25 - 37 sec Lipid panel Collection Time: 05/31/19 9:07 PM Result Value Ref Range Cholesterol 74 30 - 199 mg/dL Triglycerides 119 <=149 mg/dL HDL 21 (L) >=40 mg/dL LDL, calculated 29 <=129 mg/dL Non-HDL Cholesterol 53 mg/dL Chol/HDL ratio 4 POCT glucose Collection Time: 06/01/19 7:39 AM Result Value Ref Range Glucose, POC 162 70 - 199 mg/dL POCT glucose Collection Time: 06/01/19 11:28 AM Result Value Ref Range Glucose, POC 183 70 - 199 mg/dL I have reviewed the above laboratory results. Imaging Results: Xr Chest 1 View Result Date: 05/30/2019 Comparison with radiograph dated 05/21/2019 and 05/03/2010. Trace bilateral pleural effusions. Again seen is the right upper lobe nodular opacity, likely representing a calcified granuloma. No pneumothorax. Mildly enlarged cardiac silhouette. Calcified thoracic aorta. Dictated by: Thomas Ross M.D. The radiology attending physician has personally reviewed this study, and had reviewed and/or edited this written report and agrees with it. Electronically signed by: Tommy Dennison M.D. Assessment/Plan Acute pulmonary embolism with acute cor pulmonale (CMS/HCC) Assessment & Plan Presented with SOB, chest pain, Afib with RVR found on CTPE with bilateral R segmental and L subsegmental PE. Likely provoked PE in setting of recent surgery, immobilization, and restarting warfarin at subtherapeutic INR without bridging. - lower extremity dopplers positive for acute RLE DVT - Continue heparin gtt - s/p warfarin 5 mg load, transition to maintenance dose at 2 mg - Monitor INR daily * Atrial fibrillation with RVR (CMS/HCC) Assessment & Plan Patient with history of chronic Afib, previously cardioverted and maintained on sotalol, but with recent history of paroxysmal Afib, rate controlled on carvedilol 25 mg BID. Previously anticoagulatedon warfarin, reportedly recently adjusted to 2 mg MWF, and 1.5 mg on other days due to supratherapeutic INR. This was increased to 2 mg daily after her LLE surgery. Currently presented with RVR in setting of known PE. - s/p diltiazem gtt at OSH -> transitioned to IV amiodarone load in SICU - transitioned to metoprolol 05/30, increase to 50 mg q6h for rate control - continue heparin gtt for anticoagulation with bridge to warfarin as for PE management Left femoral fracture Assessment & Plan Recent distal femoral fracture s/p debridement on 05/21 and left knee arthroplasty with distal femoral replacement on 05/24. - Left lower extremity weight bearing as tolerated - Orthopedics following - Pain control with Tylenol 1 g q6h PRN and oxycodone 5 mg q6h PRN second line - PT/OT Hypertension, essential Assessment & Plan Patient on amlodipine 5 mg, losartan 100 mg, carvedilol 25 mg BID, and HCTZ 25 mg at home - Currently holding home antihypertensives in setting of PE with soft blood pressures Diabetes mellitus type II, controlled ([facility]) Assessment & Plan Home regimen of metformin 1 g BID, semaglutide weekly. - A1c 6.5% on 05/30/19 - Continue lantus 10 units qhs with MDSSI Obstructive sleep apnea Assessment & Plan Continue home nocturnal CPAP Hypothyroidism, unspecified Assessment & Plan Continue home levothyroxine 25 mcg daily Code Status: Full Code Diet: Adult Diet Restricted; Consistent Carbohydrate DVT Prophylaxis: Heparin gtt Access: PIV Khanh Adkins MD 06/01/2019 2:22 PM Cosigned by Alessandro Erazo MD at 06/03/2019 10:43 AM CDT Associated attestation - Alessandro Erazo MD - 06/03/2019 10:43 AM CDT I have seen and examined the patient on 06/01/19. I agree with the findings and plan of care as documented in the resident's/fellow's note. * Suzie Wu MD - 06/01/2019 7:10 AM CDT Ortho Recon Daily Progress Subjective Prema Hodgson [id number] 79 y/o F POD 7 s/p L distal femur replaceent. S: Doing well this morning, transferred out of the SICU. Stood yesterday but no true ambulation, ptis frustrated/upset at lack of progression, discussed that her body is still in the healing phase and to not lose hope. She is doing the right things by trying to move/walk daily. O: AF, HR 89-104, BP wnl LLE NVI Dressing with saturation over mid aspect of incision, island dressings PT 60 INR 1.6 Plan: Appreciate Medicine care WBAT LLE Mobilize w/ PT daily Dressing: Changed to [id number]/medipore tape today. Please leave steris/theodore in place Pain per primary, currently controlled heparin gtt for therapeutic AC Additional needs: None Dispo: Per primary. Please do not hesitate to call with any questions or concerns Recent Labs Lab Units 06/01/19 0739 05/31/19 2107 HEMOGLOBIN g/dL -- 8.6* HEMATOCRIT % -- 27.9* SODIUM mmol/L -- 136 POTASSIUM PLASMA mmol/L -- 4.6 CREATININE mg/dL -- 0.59* GLUCOSE mg/dL -- 148 POC GLUCOSE MONITOR mg/dL 162 -- PROTIME (PT) sec -- 17.2* INR -- 1.6* Objective Vitals: 24hr Min/Max: Temp Min: 36.5 ??C (97.7 ??F) Max: 37.4 ??C (99.3 ??F) Pulse Min: 89 Max: 125 BP Min: 92/64 Max: 131/100 Resp Min: 15 Max: 24 SpO2 Min: 92 % Max: 99 % Most Recent : Vitals: 06/01/19 0700 BP: Pulse: Resp: Temp: SpO2: 97% I/O last 2 completed shifts: In: 999.9 [P.O.:900; I.V.:99.9] Out: 685 [Urine:685] No intake/output data recorded. Urethral Catheter Temperature probe 14 Fr. (Active) Site Assessment Clean;Skin intact 05/30/2019 7:00 PM Catheter Status Open to gravity drainage 05/30/2019 7:00 PM Urine Collection Container Drainage bag with urometer 05/30/2019 7:00 PM Securement Method N/A 05/30/2019 7:00 PM Reason for Continuing Urinary Catheterization I&O critical for hourly patient management or hemodynamic instability 05/30/2019 7:00 PM Urinary tube output (mL) 225 mL 05/31/2019 4:18 AM Urinary Tube Net Output (mL) 225 mL 05/31/2019 4:18 AM Surgical Site 05/22/19 Left Leg (Active) Surgical Site 05/25/19 Left Knee (Active) Site Assessment MICHAEL 05/30/2019 7:00 PM Taya-wound Assessment Dry;Intact 05/30/2019 7:00 PM Closure Unable to assess 05/30/2019 7:00 PM Drainage Amount None 05/30/2019 7:00 PM Drainage Description MICHAEL 05/29/2019 9:16 PM Drainage Odor No odor 05/29/2019 9:16 PM Dressing Status Changed;Clean/Dry/Intact;Other (Comment) 05/30/2019 7:00 PM Dressing Other (Comment) 05/30/2019 7:00 PM Interventions Other (Comment) 05/30/2019 7:00 PM Physical Exam: Awake, alert, oriented No acute distress Breathing regular and unlabored, NC in place with O2 support Dressing clean and dry Sensation intact in the superficial peroneal, deep peroneal, and tibial nerves 5/5 strength TA, GS, EHL, FHL Dorsalis pedis pulse on affected limb palpable Lab/Radiology/Diagnostic Review: Laboratory review: Lab results in the last 12 hours: Recent Results (from the past 12 hour(s)) POCT glucose Collection Time: 05/31/19 8:53 PM Result Value Ref Range Glucose, POC 155 70 - 199 mg/dL CBC without differential Collection Time: 05/31/19 9:07 PM Result Value Ref Range WBC 11.1 (H) 3.8 - 9.9 K/cumm Hgb 8.6 (L) 11.9 - 15.5 g/dL Hct 27.9 (L) 35.6 - 45.5 % Plt 322 150 - 400 K/cumm MPV 10.8 9.1 - 12.3 fL RBC 2.78 (L) 3.90 - 5.20 M/cumm MCV 100.4 (H) 81.3 - 96.4 fL MCH 30.9 27.1 - 33.3 pg MCHC 30.8 (L) 32.3 - 35.7 g/dL RDW CV 16.1 (H) 11.1 - 14.9 % RDW SD 57.0 (H) 35.7 - 48.1 fL NRBC abs 0.17 (H) 0.00 - 0.01 K/cumm Basic metabolic panel Collection Time: 05/31/19 9:07 PM Result Value Ref Range Sodium 136 135 - 145 mmol/L Potassium, pl 4.6 3.3 - 4.9 mmol/L Chloride 99 97 - 110 mmol/L CO2 26 22 - 32 mmol/L Anion gap 11 2 - 15 mmol/L BUN 18 8 - 25 mg/dL Creatinine 0.59 (L) 0.60 - 1.10 mg/dL Glucose 148 70 - 199 mg/dL Calcium 8.7 8.5 - 10.3 mg/dL Magnesium Collection Time: 05/31/19 9:07 PM Result Value Ref Range Magnesium 1.7 1.4 - 2.5 mg/dL Protime-INR Collection Time: 05/31/19 9:07 PM Result Value Ref Range PT 17.2 (H) 8.6 - 13.0 sec INR 1.6 (H) 0.8 - 1.2 aPTT Collection Time: 05/31/19 9:07 PM Result Value Ref Range aPTT 60 (H) 25 - 37 sec Lipid panel Collection Time: 05/31/19 9:07 PM Result Value Ref Range Cholesterol 74 30 - 199 mg/dL Triglycerides 119 <=149 mg/dL HDL 21 (L) >=40 mg/dL LDL, calculated 29 <=129 mg/dL Non-HDL Cholesterol 53 mg/dL Chol/HDL ratio 4 POCT glucose Collection Time: 06/01/19 7:39 AM Result Value Ref Range Glucose, POC 162 70 - 199 mg/dL Giovanna Wu MD Orthopaedic Surgery, PGY-2 ?? During normal business hours - If you know the resident's name on the appropriate orthopaedic surgery team, please use [email or web address] to page resident directly. ?? If you have questions overnight or can't reach the appropriate resident, please call the Orthopaedic Surgery Consult Pager [phone] to have your questions answered or be directed to the correct Orthopaedic Surgery resident. Cosigned by Kaveh Charles MD at 06/01/2019 1:09 PM CDT Associated attestation - Kaveh Charles MD - 06/01/2019 1:09 PM CDT I have seen and examined the patient with the resident in the hospital on 06/01/2019. I agree with the assessment of Dr. Wu, as documented in her note. Today's plan will be mobilization with therapy, as her medical condition allows. Kaveh Charles M.D. Oracle Database Developer, Orthopaedic Surgery * Kae Adkins MD - 05/31/2019 7:40 PM CDT Internal Medicine Daily Progress Subjective Chief complaint: Pulmonary embolism Interval History: Prmea Hodgson is a 79yo F with a history of chronic Afib, HTN, T2DM, AYAD, hypothyroidism, recentL distal femoral fracture s/p replacement by orthopedic surgery on 05/20 with subsequent discharge on 05/26, who presented initially on 05/28 with Afib with RVR, chest pain, and SOB found 2/2 PE. Briefly, patient sustained a fall down several steps which prompted admission to the hospital on 05/20 for left distal femoral fracture for which she underwent debridement of bone fragments on 05/21,followed by left total knee arthroplasty with distal femoral replacement on 05/24. She was subsequent discharged to inpatient rehab on 05/26. However, on 05/28, she developed worsening SOB and R>L chest pain at her rehab facility, placed on supplemental oxygen, and sent to OSH, where she was found to be in Afib with RVR, with CT PE revealing bilateral pulmonary emboli (R segmental, L subsegmental), in the setting of being post- operatively restarted on warfarin at subtherapeutic INR without Lovenox bridge. She was started on a diltiazem gtt and heparin gtt, labs notable for NT-proBNP 5830, lactate 4.7, trop 0.036 -> 0.058 -> 0.110. The patient was susbequently transferred to [facility] SICU on 05/28 for further management. Here, she was started on amio gtt given continued Afib with RVR, repeat labs notable for lactate 1.0, NT-proBNP 7985, trop downtrending to 0.08. Lower extremity dopplers showed acute DVT in the RLE. TTE showed normal LV chamber size, moderate systolic dysfunction, EF 38%, LAE, mildly dilated RV, moderate RV hypokinesis, mild KAROL, dilated IVC, moderate . She was continued on heparin gtt and has been transitioned from amio gtt to metoprolol 25 mg q6h with continued rate control of Afib. She hasnow been transferred to the floor for further management. Objective Scheduled Medications: cholecalciferol, 2,000 Units, oral, Daily DULoxetine DR, 60 mg, oral, Daily furosemide, 20 mg, oral, Daily insulin glargine, 10 Units, subcutaneous, QAM insulin lispro, 1-3 Units, subcutaneous, Nightly insulin lispro, 1-5 Units, subcutaneous, TID with meals levothyroxine, 25 mcg, oral, Daily lovastatin, 10 mg, oral, Nightly metoprolol (LOPRESSOR) tablet/capsule, 25 mg, oral, Q6H MISHA multivitamin with minerals, 1 tablet, oral, Daily pantoprazole DR, 40 mg, oral, Daily sodium chloride 0.9%, 0.5-20 mL, intra-catheter, Q8H MISHA warfarin, 5 mg, oral, Daily-1800 Continuous Medications: heparin, 1-33 Units/kg/hr, Last Rate: 14 Units/kg/hr (05/31/191937) PRN Medications: ??? acetaminophen ??? calcium carbonate ??? heparin OR heparin ??? ondansetron ??? oxyCODONE ??? senna-docusate ??? sodium chloride 0.9% Vitals: Most Recent : Vitals: 05/31/191944 BP: 127/59 Pulse: 89 Resp: 20 Temp: 36.5 ??C (97.7 ??F) SpO2: 99% 24hr Min/Max: Temp Min: 36.5 ??C (97.7 ??F) Max: 37 ??C (98.6 ??F) Pulse Min: 89 Max: 125 BP Min: 92/64 Max: 142/99 Resp Min: 14 Max: 24 SpO2 Min: 90 % Max: 99 % I/O: I/O last 2 completed shifts: In: 2057.6 [P.O.:1620; I.V.:337.6; IV Piggyback:100] Out: 1740 [Urine:1740] No intake/output data recorded. Physical Exam: General: Not in acute distress. Lying comfortably in bed. HEENT: Sclera nonicteric. Moist mucous membranes. Cardiac: Irregular rhythm and regular rate. No murmurs, rubs, or gallops. Pulmonary: No respiratory distress on room air. Clear to auscultation bilaterally. Abdomen: Soft, nondistended, nontender. Extremities: Trace nonpitting edema bilaterally. Dressing over LLE, c/d/i. Warm and well perfused. Neurologic: Alert and oriented to person/place/time. Psychiatric: Appropriate mood and affect, pleasant and conversant. Lab/Radiology/Diagnostic Review: Recent Results (from the past 24 hour(s)) CBC without differential Collection Time: 05/30/19 9:46 PM Result Value Ref Range WBC 10.3 (H) 3.8 - 9.9 K/cumm Hgb 8.4 (L) 11.9 - 15.5 g/dL Hct 26.9 (L) 35.6 - 45.5 % Plt 338 150 - 400 K/cumm MPV 10.4 9.1 - 12.3 fL RBC 2.73 (L) 3.90 - 5.20 M/cumm MCV 98.5 (H) 81.3 - 96.4 fL MCH 30.8 27.1 - 33.3 pg MCHC 31.2 (L) 32.3 - 35.7 g/dL RDW CV 15.9 (H) 11.1 - 14.9 % RDW SD 54.7 (H) 35.7 - 48.1 fL NRBC abs 0.12 (H) 0.00 - 0.01 K/cumm Basic metabolic panel Collection Time: 05/30/19 9:46 PM Result Value Ref Range Sodium 132 (L) 135 - 145 mmol/L Potassium, pl 3.6 3.3 - 4.9 mmol/L Chloride 97 97 - 110 mmol/L CO2 25 22 - 32 mmol/L Anion gap 10 2 - 15 mmol/L BUN 19 8 - 25 mg/dL Creatinine 0.58 (L) 0.60 - 1.10 mg/dL Glucose 157 70 - 199 mg/dL Calcium 8.5 8.5 - 10.3 mg/dL Calcium, ionized Collection Time: 05/30/19 9:46 PM Result Value Ref Range Calcium, Ionized 4.25 (L) 4.50 - 5.10 mg/dL Magnesium Collection Time: 05/30/19 9:46 PM Result Value Ref Range Magnesium 1.8 1.4 - 2.5 mg/dL Phosphorus Collection Time: 05/30/19 9:46 PM Result Value Ref Range Phosphorus, pl 2.7 2.3 - 4.5 mg/dL Hemoglobin A1c Collection Time: 05/30/19 9:46 PM Result Value Ref Range Hgb A1C 6.5 (H) 4.0 - 5.6 % Estimated Average Glucose 140 mg/dL POCT glucose Collection Time: 05/30/19 11:41 PM Result Value Ref Range Glucose, POC 162 70 - 199 mg/dL Protime-INR Collection Time: 05/30/19 11:59 PM Result Value Ref Range PT 17.1 (H) 8.6 - 13.0 sec INR 1.6 (H) 0.8 - 1.2 aPTT Collection Time: 05/30/19 11:59 PM Result Value Ref Range aPTT 66 (H) 25 - 37 sec POCT glucose Collection Time: 05/31/19 3:08 AM Result Value Ref Range Glucose, POC 178 70 - 199 mg/dL POCT glucose Collection Time: 05/31/19 7:40 AM Result Value Ref Range Glucose, POC 180 70 - 199 mg/dL POCT glucose Collection Time: 05/31/19 11:37 AM Result Value Ref Range Glucose, POC 192 70 - 199 mg/dL POCT glucose Collection Time: 05/31/19 5:15 PM Result Value Ref Range Glucose, POC 168 70 - 199 mg/dL I have reviewed the above laboratory results. Imaging Results: Xr Chest 1 View Result Date: 05/30/2019 Comparison with radiograph dated 05/21/2019 and 05/03/2010. Trace bilateral pleural effusions. Again seen is the right upper lobe nodular opacity, likely representing a calcified granuloma. No pneumothorax. Mildly enlarged cardiac silhouette. Calcified thoracic aorta. Dictated by: Thomas Ross M.D. The radiology attending physician has personally reviewed this study, and had reviewed and/or edited this written report and agrees with it. Electronically signed by: Tommy Dennison M.D. Assessment/Plan Acute pulmonary embolism with acute cor pulmonale ([facility]) Assessment & Plan Presented with SOB, chest pain, Afib with RVR found on CTPE with bilateral R segmental and L subsegmental PE. Likely provoked PE in setting of recent surgery, immobilization, and restarting warfarin at subtherapeutic INR without bridging. - lower extremity dopplers positive for acute RLE DVT - Continue heparin gtt - Start warfarin load at 5 mg tonight - Monitor INR daily * Atrial fibrillation with RVR ([facility]) Assessment & Plan Patient with history of chronic Afib, previously cardioverted and maintained on sotalol, but with recent history of paroxysmal Afib, rate controlled on carvedilol 25 mg BID. Previously anticoagulatedon warfarin, reportedly recently adjusted to 2 mg MWF, and 1.5 mg on other days due to supratherapeutic INR. This was increased to 2 mg daily after her LLE surgery. Currently presented with RVR in setting of known PE. - s/p diltiazem gtt at OSH -> transitioned to IV amiodarone load in SICU - transitioned to metoprolol 25 mg PO q6h 05/30 with good rate control - continue heparin gtt for anticoagulation with bridge to warfarin as for PE management Left femoral fracture Assessment & Plan Recent distal femoral fracture s/p debridement on 05/21 and left knee arthroplasty with distal femoral replacement on 05/24. - Left lower extremity weight bearing as tolerated - Orthopedics following - Pain control with Tylenol 1 g q6h PRN and oxycodone 5 mg q6h PRN second line - PT/OT Hypertension, essential Assessment & Plan Patient on amlodipine 5 mg, losartan 100 mg, carvedilol 25 mg BID, and HCTZ 25 mg at home - Currently holding home antihypertensives in setting of PE with soft blood pressures Diabetes mellitus type II, controlled ([facility]) Assessment & Plan Home regimen of metformin 1 g BID, semaglutide weekly. - A1c 6.5% on 05/30/19 - Continue lantus 10 units qhs with MDSSI Obstructive sleep apnea Assessment & Plan Continue home nocturnal CPAP Hypothyroidism, unspecified Assessment & Plan Continue home levothyroxine 25 mcg daily Code Status: Full Code Diet: Adult Diet Restricted; Consistent Carbohydrate DVT Prophylaxis: Heparin gtt Access: MIGEL Adkins MD 05/31/2019 8:22 PM Cosigned by Alessandro Erazo MD at 06/03/2019 10:43 AM CDT * Rebecca Jain RN - 05/31/2019 2:10 PM CDT 05/31/19 1400 Information Information Obtained From Patient Referral Data Referral Source Other (Comment) Referral Reason Discharge Planning Prior to Admission Primary Caregiver Facility staff Support System Spouse/Significant Other Support system contact info (name, phone, availablity) patient's samir Rodrigues Home Care Services No Living Arrangements halfway Type of Residence halfway Does patient wish to return to care facility? No, wishes for other placement Facility contact name and number: [facility] Financial Resource Payor Source Medicare advantage Potential Discharge Needs Anticipated discharge level of care retirement facility Pt/Family agrees with Anticipated Level of Care Yes Patient expects to be discharged to: Long-Term Facility Chart reviewed for: Medical Necessity Patient admitted for: 79 y.o. female presented to the ICU with chief complaint of chest pain and shortness of breath Information obtained from: patient Role of CM explained/additional information & options discussed Phone/Address Verified Plan includes: Patient to discharge from the hospital when medically stable. Discharge needs to be determined at this time. Insurances verified as: [employer] Prescription coverage verified Admission Source: OSH PCP Confirmed: MD Wilber Cleaning Referrals initiated to: none at this time. Patient was living at [facility] prior to admission but would like to dc to [facility]. SW notified and following. Transportation at discharge: to be determined Plan of Care: 1. Collaboration with patient/spouse, MD, direct care nurse, Night Time Babysitter, and other members of the health care team to assure needed interventions completed. 2. Return patient to baseline post discharge. 3. Lockstitch Waistband Setter will follow along with SW for Discharge Planning - Interventions as needed. 4. Anticipated level of care at discharge: Return home when medically stable for discharge. 5. Planned Discharge Disposition: Return home when medically stable for discharge. Patient and family agree with plan. Base on a comprehensive family assessment, assistance with instrumental activities of daily living after discharge will be provided by SNF Staff. Through the course of our work I determined that SNF Staff possesses the skill and ability to provide and monitor the care of the patient when he or she returns home. SNF Staff has the capacity to provide/monitor/arrange for the care of the patient. Finally, we determined that SNF Staff has the knowledge of available resources and that combining them with their existing resources will suffice to sustain and care for the patient when he or she returns home. The treatment team is aware of this information. All are in agreement with the aftercare plan. Case management will continue to follow for discharge planning and referrals as needed. Please call if I may be of any assistance. [phone] * Geovanna Luna RPh - 05/31/2019 8:14 AM CDT Patient profile has been reviewed by a clinical customer contact specialist on 05/31/2019. Case reviewed on rounds with multidisciplinary team or outside of rounds with prescribers as necessary. Additional significant interventions or issues related to ongoing monitoring are listed below as appropriate. Restart home furosemide 20 mg daily and lovastatin 10 mg nightly. Increase metoprolol to 25 mg q6h. Initiate glargine 10 units daily and decrease to a mid dose sliding scale insulin. Geovanna Luna RPh, Pharm.D. * Cuba Singleton MD - 05/31/2019 7:51 AM CDT ICU Progress Note Team: Red AM Subjective Patient is a 79 y.o. female with PMH of Afib (warfar and coreg), DM2 (no insulin), and recent L distal femur fx (s/p reduction 2/ ortho 05/21/19) who presented as a transfer to the ICU for bilateral PEfound incidentally after patient presented in Afib w/ RVR subtherapeutic on warfarin from rehab. Admitted for symptomatic PE and Afib with RVR. Interval History: Pt had no acute events during the day. Ortho came by overnight and took down dressing. Per their report and overnight coverage wound appeared well. Pt happy with healing. Continued hep gtt as medicine wanted to change to warfarin when she goes to medicine. Pt awake and happy this AM. Past Medical History: Diagnosis Date ??? Atrial fibrillation (CMS/HCC) ??? Dyslipidemia ??? Hypertension ??? Hypothyroidism ??? Mitral regurgitation ??? Obesity ??? PONV (postoperative nausea and vomiting) ??? Sleep apnea Past Surgical History: Procedure Laterality Date ??? BREAST LUMPECTOMY ??? CHOLECYSTECTOMY ??? HAND SURGERY Left plate & screws ??? HYSTERECTOMY ??? INCISION AND DRAINAGE FEMUR Left 05/22/2019 Medications Prior to Admission Medication Sig Dispense Refill Last Dose ??? amLODIPine (NORVASC) 5 mg tablet TAKE ONE TABLET BY MOUTH ONCE DAILY 90 tablet 1 05/29/2019 at Unknown time ??? carvedilol (COREG) 25 mg tablet Take 1 tablet (25 mg total) by mouth 2 (two) times a day with meals 60 tablet 11 05/29/2019 at Unknown time ??? DULoxetine DR (CYMBALTA) 30 mg capsule Take 60 mg by mouth daily 05/29/2019 at Unknown time ??? furosemide (LASIX) 20 mg tablet Take 1 tablet (20 mg total) by mouth daily 30 tablet 11 05/29/2019 at Unknown time ??? hydroCHLOROthiazide (HYDRODIURIL) 25 mg tablet Take 1 tablet (25 mg total) by mouth daily 90 tablet 3 05/29/2019 at Unknown time ??? levothyroxine (SYNTHROID, LEVOTHROID) 25 mcg tablet Take 25 mcg by mouth daily 1 05/29/2019 at Unknown time ??? metFORMIN (GLUCOPHAGE) 1,000 mg tablet Take one tablet once daily at bedtime 05/29/2019 at Unknown time ??? warfarin (COUMADIN) 2 mg tablet TAKE 1-2 TABLETS BY MOUTH EVERY DAY DIRECTED (Patient takingdifferently: TAKE 1 TABLET BY MOUTH EVERY DAY DIRECTED) 180 tablet 1 05/29/2019 at Unknown time ??? zolpidem (AMBIEN) 5 mg tablet Take 5 mg by mouth nightly. at bedtime. 1 05/29/2019 at Unknown time ??? ALPRAZolam (XANAX) 0.25 mg tablet PRN Unknown at Unknown time ??? cholecalciferol, vitamin D3, (VITAMIN D3 ORAL) Take by mouth daily Unknown at Unknown time ??? losartan (COZAAR) 100 mg tablet TAKE ONE TABLET BY MOUTH ONCE DAILY 90 tablet 3 Unknown at Unknown time ??? lovastatin (MEVACOR) 10 mg tablet TAKE ONE TABLET BY MOUTH ONCE DAILY AT BEDTIME 90 tablet 3 Unknown at Unknown time ??? multivit,iron,minerals/lutein (CENTRUM SILVER ULTRA WOMEN'S ORAL) Take by mouth daily Unknown at Unknown time ??? oxyCODONE-acetaminophen (PERCOCET) 5-325 mg per tablet Take 1-2 tablets by mouth every 4 (four)hours as needed for pain 56 tablet 0 Unknown at Unknown time ??? Ozempic 0.25 mg or 0.5 mg(2 mg/1.5 mL) pen injector Inject 0.25 mg under the skin once a week More than a month at Unknown time ??? potassium chloride ER (KLOR-CON) 20 mEq CR tablet Take 1 tablet (20 mEq total) by mouth daily 30 tablet 11 Unknown at Unknown time ??? senna-docusate (PERICOLACE) 8.6-50 mg Take 2 tablets by mouth 2 (two) times a day 60 tablet 1 Unknown at Unknown time Allergies Allergen Reactions ??? Mili Inhibitors Cough Reaction: COUGH, ??? Citalopram ??? [...] Conv) ??? Anesthesia problems Neg Hx Vitals: Most Recent : Vitals: 05/31/19 0724 BP: Pulse: 118 Resp: 18 Temp: SpO2: 98% Hemodynamics: MAP (mmHg): [59-120] 110 Pulmonary Support: O2 Therapy: Supplemental oxygen O2 Del Method: Nasal cannula O2 Flow Rate (L/min): 2 L/min Intake/Output: Intake/Output Summary (Last 24 hours) at 05/31/2019 0751 Last data filed at 05/31/2019 0700 Gross per 24 hour Intake 1714.02 ml Output 2530 ml Net -815.98 ml Objective Physical exam: Constitution: Pt encountered laying in bed in NAD, appears overweight Eyes: sclera anicteric, no discharge noted Head: normocephalic, atraumatic CV: tachycardia w/ irreg irreg rhythm, heart sounds normal, no S3 or S4 heard, no murmurs/gallops/rubs noted Pulm: equal chest rise and breath sounds noted, no wheezing or rales heard Abd: soft, NTND Ext: radial, DP, PT pulses felt b/l, no cyanosis but mild non-pitting edema to lower calf noted. Dressing on LLE c/d/i Neuro: sensation, motor response, and CN II-XII grossly intact DRAINS: Lucio LINES: PIV x2 (20, 20) Lab/Radiology/Diagnostic Review: Recent Results (from the past 48 hour(s)) POCT glucose Collection Time: 05/29/19 9:23 PM Result Value Ref Range Glucose, POC 230 (H) 70 - 199 mg/dL Infection Prevention MRSA Only (Staphylococcus aureus) Culture Nasal Collection Time: 05/29/19 9:42 PM Result Value Ref Range Report Final Report: Negative Basic metabolic panel Collection Time: 05/29/19 9:42 PM Result Value Ref Range Sodium 133 (L) 135 - 145 mmol/L Potassium, pl 4.3 3.3 - 4.9 mmol/L Chloride 102 97 - 110 mmol/L CO2 24 22 - 32 mmol/L Anion gap 7 2 - 15 mmol/L BUN 24 8 - 25 mg/dL Creatinine 0.66 0.60 - 1.10 mg/dL Glucose 220 (H) 70 - 199 mg/dL Calcium 8.3 (L) 8.5 - 10.3 mg/dL Magnesium Collection Time: 05/29/19 9:42 PM Result Value Ref Range Magnesium 1.6 1.4 - 2.5 mg/dL Phosphorus Collection Time: 05/29/19 9:42 PM Result Value Ref Range Phosphorus, pl 3.3 2.3 - 4.5 mg/dL Pro B-type natriuretic peptide Collection Time: 05/29/19 9:42 PM Result Value Ref Range NT-proBNP 7,985 (H) <=450 pg/mL CBC with auto differential Collection Time: 05/29/19 9:42 PM Result Value Ref Range WBC 8.5 3.8 - 9.9 K/cumm Hgb 8.1 (L) 11.9 - 15.5 g/dL Hct 25.6 (L) 35.6 - 45.5 % Plt 268 150 - 400 K/cumm MPV 10.5 9.1 - 12.3 fL RBC 2.58 (L) 3.90 - 5.20 M/cumm MCV 99.2 (H) 81.3 - 96.4 fL MCH 31.4 27.1 - 33.3 pg MCHC 31.6 (L) 32.3 - 35.7 g/dL RDW CV 15.5 (H) 11.1 - 14.9 % RDW SD 54.6 (H) 35.7 - 48.1 fL NRBC abs 0.08 (H) 0.00 - 0.01 K/cumm aPTT Collection Time: 05/29/19 9:42 PM Result Value Ref Range aPTT 103 (H) 25 - 37 sec Protime-INR Collection Time: 05/29/19 9:42 PM Result Value Ref Range PT 17.8 (H) 8.6 - 13.0 sec INR 1.6 (H) 0.8 - 1.2 Differential, auto Collection Time: 05/29/19 9:42 PM Result Value Ref Range Neutrophil abs 5.9 1.7 - 6.5 K/cumm Imm gran abs 0.1 0.0 - 0.1 K/cumm Lymphocyte abs 1.9 0.8 - 3.3 K/cumm Monocyte abs 0.7 0.2 - 0.8 K/cumm Eosinophil abs 0.0 0.0 - 0.5 K/cumm Basophil abs 0.0 0.0 - 0.1 K/cumm Neutrophil pct 68.9 % Imm gran pct 0.7 % Lymphocyte pct 21.9 % Monocyte pct 8.2 % Eosinophil pct 0.2 % Basophil pct 0.1 % POCT glucose Collection Time: 05/30/19 12:30 AM Result Value Ref Range Glucose, POC 200 (H) 70 - 199 mg/dL POCT glucose Collection Time: 05/30/19 3:09 AM Result Value Ref Range Glucose, POC 176 70 - 199 mg/dL Troponin I Collection Time: 05/30/19 3:19 AM Result Value Ref Range Troponin I 0.08 (H) 0.00 - 0.03 ng/mL aPTT Collection Time: 05/30/19 4:48 AM Result Value Ref Range aPTT 63 (H) 25 - 37 sec POCT glucose Collection Time: 05/30/19 7:33 AM Result Value Ref Range Glucose, POC 163 70 - 199 mg/dL aPTT Collection Time: 05/30/19 10:26 AM Result Value Ref Range aPTT 55 (H) 25 - 37 sec POCT glucose Collection Time: 05/30/19 11:26 AM Result Value Ref Range Glucose, POC 233 (H) 70 - 199 mg/dL Glucose comment 1 RN Notified POCT glucose Collection Time: 05/30/19 3:38 PM Result Value Ref Range Glucose, POC 190 70 - 199 mg/dL aPTT Collection Time: 05/30/19 5:44 PM Result Value Ref Range aPTT 64 (H) 25 - 37 sec POCT glucose Collection Time: 05/30/19 7:03 PM Result Value Ref Range Glucose, POC 164 70 - 199 mg/dL CBC without differential Collection Time: 05/30/19 9:46 PM Result Value Ref Range WBC 10.3 (H) 3.8 - 9.9 K/cumm Hgb 8.4 (L) 11.9 - 15.5 g/dL Hct 26.9 (L) 35.6 - 45.5 % Plt 338 150 - 400 K/cumm MPV 10.4 9.1 - 12.3 fL RBC 2.73 (L) 3.90 - 5.20 M/cumm MCV 98.5 (H) 81.3 - 96.4 fL MCH 30.8 27.1 - 33.3 pg MCHC 31.2 (L) 32.3 - 35.7 g/dL RDW CV 15.9 (H) 11.1 - 14.9 % RDW SD 54.7 (H) 35.7 - 48.1 fL NRBC abs 0.12 (H) 0.00 - 0.01 K/cumm Basic metabolic panel Collection Time: 05/30/19 9:46 PM Result Value Ref Range Sodium 132 (L) 135 - 145 mmol/L Potassium, pl 3.6 3.3 - 4.9 mmol/L Chloride 97 97 - 110 mmol/L CO2 25 22 - 32 mmol/L Anion gap 10 2 - 15 mmol/L BUN 19 8 - 25 mg/dL Creatinine 0.58 (L) 0.60 - 1.10 mg/dL Glucose 157 70 - 199 mg/dL Calcium 8.5 8.5 - 10.3 mg/dL Calcium, ionized Collection Time: 05/30/19 9:46 PM Result Value Ref Range Calcium, Ionized 4.25 (L) 4.50 - 5.10 mg/dL Magnesium Collection Time: 05/30/19 9:46 PM Result Value Ref Range Magnesium 1.8 1.4 - 2.5 mg/dL Phosphorus Collection Time: 05/30/19 9:46 PM Result Value Ref Range Phosphorus, pl 2.7 2.3 - 4.5 mg/dL POCT glucose Collection Time: 05/30/19 11:41 PM Result Value Ref Range Glucose, POC 162 70 - 199 mg/dL Protime-INR Collection Time: 05/30/19 11:59 PM Result Value Ref Range PT 17.1 (H) 8.6 - 13.0 sec INR 1.6 (H) 0.8 - 1.2 aPTT Collection Time: 05/30/19 11:59 PM Result Value Ref Range aPTT 66 (H) 25 - 37 sec POCT glucose Collection Time: 05/31/19 3:08 AM Result Value Ref Range Glucose, POC 178 70 - 199 mg/dL POCT glucose Collection Time: 05/31/19 7:40 AM Result Value Ref Range Glucose, POC 180 70 - 199 mg/dL No results found. Assessment /Plan No new Assessment & Plan notes have been filed under this hospital service since the last note was generated. Service: Critical Care Plan of Care: NEURO: #Acute pain - Tylenol 1g q6h PRN - oxy 5mg q4h PRN ?? #Anxiety - Continue home duloxetine - Holding home Xanax ?? #Insomnia - Holding home Ambien ?? CV: #Afib with RVR, home med: warfarin and coreg - Home meds - Hold warfarin 2mg - hold carvedilol 25 mg BID - cont Heparin gtt - inc metop to 25mg PO q6h for increased rate control - coreg to start charo possibly? - CTM coags - Cardiology vs. Medicine c/s #R heart strain 2/2 PE - Pro-BNP 5830 -> 7985 - not trending - Troponin downtrended - formal TTE - RV global mod hypokinesis with decreased LV EF (38% from 40s, mod , LAE) - CTM peripheral edema - restart lasix ?? #Chronic HTN - Holding home amlodipine, carvedilol, losartan, HCTZ - restart home lasix 20mg PO - to give additional doses as needed ?? #Chronic HLD - Holding home lovastatin 2/2 interaction with amiodarone ?? PULM: #Acute resp insufficiency, 2/2 Afib with RVR and PE - 2L NC, wean O2 for SpO2 >92% #Bilateral pulmonary emboli R>L - Etiology: Afib vs. Fat emboli from recent L distal femur replacement 05/20 - hep gtt - medicine to go back to warfarin on their service - BLE Doppler + DVT in: R peroneal and soleal veins. Unable to image LLE due to dressings. #AYAD - Uses CPAP at home - ordered for o/n ?? GI: Diet: consistent carb diet Bowel regimen: docusate/senna PRN PUD PPx: none ?? ENDO: #Type 2 DM - ICU MDSSI - lantus 10 qAM - Holding home metformin ?? #Hypothyroidism - Continue home levothyroxine 25mcg ?? RENAL: Fluid balance goal: neg 500 to 1000 Maintenance IV fluids: none Electrolyte repletion orders: Will replete per SICU protocol - d/c lucio?? HEME: #anemia of unk etiology - Transfuse if Hgb<7.0 #anticoagulation - per above ?? ID: No acute issues ?? MSK: #L distal femur fx - WBAT per ortho this admit - Fall precautions - PT to see today - ortho following peripherally Intensive Care Unit Standards of Care: Diet: consistent carb diet Stress Ulcer Prophy: none DVT Prophy: hep gtt, medicine to change when transfer Restraints: none Vascular access: PIV x2 (20, 20) Goals of care: full code Cuba Singleton MD Red 1 Cosigned by Miguel Centeno MD PhD at 05/31/2019 4:54 PM CDT * Suzie Wu MD - 05/31/2019 6:03 AM CDT Ortho Recon Daily Progress Subjective Prema Hodgson [id number] 79 y/o F POD 6 s/p L distal femur replaceent. S: Doing well this morning, continues on supplemental O2 with good saturation. Reports stiffness inLLE but no significant pain. Seen by attending of record yesterday who removed MILI bandage. O: AF, tachycardic from 100-100s, BP wnl, O2Sa 90-93 on 2L O2 support LLE NVI Dressing c/d/i, island dressings H/H: 8.4/26.9 Cr: 0.58 PTT 66 INR 1.6 WBC 10.3 Na 132 K 3.6 Plan: Appreciate SICU care WBAT LLE Mobilize w/ PT when medically clear, recommend as soon as posible Dressing: Change as needed, can apply MILI PRN from foot to thigh as needed as well. Please leave steris/theodore in place Pain per primary, currently controlled heparin gtt for therapeutic AC Additional needs: None Dispo: Per primary. Please do not hesitate to call with any questions or concerns Recent Labs Lab Units 05/31/19 0308 05/30/19 2359 05/30/19 2146 HEMOGLOBIN g/dL -- -- -- 8.4* HEMATOCRIT % -- -- -- 26.9* SODIUM mmol/L -- -- -- 132* POTASSIUM PLASMA mmol/L -- -- -- 3.6 CREATININE mg/dL -- -- -- 0.58* GLUCOSE mg/dL -- -- -- 157 POC GLUCOSE MONITOR mg/dL 178 -- < > -- PROTIME (PT) sec -- 17.1* -- -- INR -- 1.6* -- -- < > = values in this interval not displayed. Objective Vitals: 24hr Min/Max: Temp Min: 36.7 ??C (98.1 ??F) Max: 36.9 ??C (98.4 ??F) Pulse Min: 94 Max: 135 BP Min: 99/64 Max: 142/99 Resp Min: 14 Max: 29 SpO2 Min: 90 % Max: 95 % Most Recent : Vitals: 05/31/19 0400 BP: 120/86 Pulse: 103 Resp: 20 Temp: SpO2: 90% I/O last 2 completed shifts: In: 1502.7 [P.O.:200; I.V.:1152.7; IV Piggyback:150] Out: 2105 [Urine:2105] I/O this shift: In: 1032.3 [P.O.:720; I.V.:212.3; IV Piggyback:100] Out: 1055 [Urine:1055] Urethral Catheter Temperature probe 14 Fr. (Active) Site Assessment Clean;Skin intact 05/30/2019 7:00 PM Catheter Status Open to gravity drainage 05/30/2019 7:00 PM Urine Collection Container Drainage bag with urometer 05/30/2019 7:00 PM Securement Method N/A 05/30/2019 7:00 PM Reason for Continuing Urinary Catheterization I&O critical for hourly patient management or hemodynamic instability 05/30/2019 7:00 PM Urinary tube output (mL) 225 mL 05/31/2019 4:18 AM Urinary Tube Net Output (mL) 225 mL 05/31/2019 4:18 AM Surgical Site 05/22/19 Left Leg (Active) Surgical Site 05/25/19 Left Knee (Active) Site Assessment MICHAEL 05/30/2019 7:00 PM Taya-wound Assessment Dry;Intact 05/30/2019 7:00 PM Closure Unable to assess 05/30/2019 7:00 PM Drainage Amount None 05/30/2019 7:00 PM Drainage Description MICHAEL 05/29/2019 9:16 PM Drainage Odor No odor 05/29/2019 9:16 PM Dressing Status Changed;Clean/Dry/Intact;Other (Comment) 05/30/2019 7:00 PM Dressing Other (Comment) 05/30/2019 7:00 PM Interventions Other (Comment) 05/30/2019 7:00 PM Physical Exam: Awake, alert, oriented No acute distress Breathing regular and unlabored, NC in place with O2 support Dressing clean and dry Sensation intact in the superficial peroneal, deep peroneal, and tibial nerves 5/5 strength TA, GS, EHL, FHL Dorsalis pedis pulse on affected limb palpable Lab/Radiology/Diagnostic Review: Laboratory review: Lab results in the last 12 hours: Recent Results (from the past 12 hour(s)) CBC without differential Collection Time: 05/30/19 9:46 PM Result Value Ref Range WBC 10.3 (H) 3.8 - 9.9 K/cumm Hgb 8.4 (L) 11.9 - 15.5 g/dL Hct 26.9 (L) 35.6 - 45.5 % Plt 338 150 - 400 K/cumm MPV 10.4 9.1 - 12.3 fL RBC 2.73 (L) 3.90 - 5.20 M/cumm MCV 98.5 (H) 81.3 - 96.4 fL MCH 30.8 27.1 - 33.3 pg MCHC 31.2 (L) 32.3 - 35.7 g/dL RDW CV 15.9 (H) 11.1 - 14.9 % RDW SD 54.7 (H) 35.7 - 48.1 fL NRBC abs 0.12 (H) 0.00 - 0.01 K/cumm Basic metabolic panel Collection Time: 05/30/19 9:46 PM Result Value Ref Range Sodium 132 (L) 135 - 145 mmol/L Potassium, pl 3.6 3.3 - 4.9 mmol/L Chloride 97 97 - 110 mmol/L CO2 25 22 - 32 mmol/L Anion gap 10 2 - 15 mmol/L BUN 19 8 - 25 mg/dL Creatinine 0.58 (L) 0.60 - 1.10 mg/dL Glucose 157 70 - 199 mg/dL Calcium 8.5 8.5 - 10.3 mg/dL Calcium, ionized Collection Time: 05/30/19 9:46 PM Result Value Ref Range Calcium, Ionized 4.25 (L) 4.50 - 5.10 mg/dL Magnesium Collection Time: 05/30/19 9:46 PM Result Value Ref Range Magnesium 1.8 1.4 - 2.5 mg/dL Phosphorus Collection Time: 05/30/19 9:46 PM Result Value Ref Range Phosphorus, pl 2.7 2.3 - 4.5 mg/dL POCT glucose Collection Time: 05/30/19 11:41 PM Result Value Ref Range Glucose, POC 162 70 - 199 mg/dL Protime-INR Collection Time: 05/30/19 11:59 PM Result Value Ref Range PT 17.1 (H) 8.6 - 13.0 sec INR 1.6 (H) 0.8 - 1.2 aPTT Collection Time: 05/30/19 11:59 PM Result Value Ref Range aPTT 66 (H) 25 - 37 sec POCT glucose Collection Time: 05/31/19 3:08 AM Result Value Ref Range Glucose, POC 178 70 - 199 mg/dL POCT glucose Collection Time: 05/31/19 7:40 AM Result Value Ref Range Glucose, POC 180 70 - 199 mg/dL Giovanna Wu MD Orthopaedic Surgery, PGY-2 ?? During normal business hours - If you know the resident's name on the appropriate orthopaedic surgery team, please use [email or web address] to page resident directly. ?? If you have questions overnight or can't reach the appropriate resident, please call the Orthopaedic Surgery Consult Pager [phone] to have your questions answered or be directed to the correct Orthopaedic Surgery resident. * Shivani Christie MD - 05/30/2019 11:08 PM CDT ICU Progress Note Team: Red PM Subjective Patient is a 79 y.o. female with PMH of Afib (warfar and coreg), DM2 (no insulin), and recent L distal femur fx (s/p reduction 2/ ortho 05/21/19) who presented as a transfer to the ICU for bilateral PEfound incidentally after patient presented in Afib w/ RVR subtherapeutic on warfarin from rehab. Admitted for symptomatic PE and Afib with RVR. Interval History: -Pt continues to feel SOB and tired. -amio gtt expiring, started on metoprolol for rate control tofay, HR 100-110's -repleted calcium, K, Mg -Na decreasing from 133 to 132 -Brought home CPAP -pepcid for indigestion, start PPI in AM Past Medical History: Diagnosis Date ??? Atrial fibrillation (CMS/HCC) ??? Dyslipidemia ??? Hypertension ??? Hypothyroidism ??? Mitral regurgitation ??? Obesity ??? PONV (postoperative nausea and vomiting) ??? Sleep apnea Past Surgical History: Procedure Laterality Date ??? BREAST LUMPECTOMY ??? CHOLECYSTECTOMY ??? HAND SURGERY Left plate & screws ??? HYSTERECTOMY ??? INCISION AND DRAINAGE FEMUR Left 05/22/2019 Medications Prior to Admission Medication Sig Dispense Refill Last Dose ??? amLODIPine (NORVASC) 5 mg tablet TAKE ONE TABLET BY MOUTH ONCE DAILY 90 tablet 1 05/29/2019 at Unknown time ??? carvedilol (COREG) 25 mg tablet Take 1 tablet (25 mg total) by mouth 2 (two) times a day with meals 60 tablet 11 05/29/2019 at Unknown time ??? DULoxetine DR (CYMBALTA) 30 mg capsule Take 60 mg by mouth daily 05/29/2019 at Unknown time ??? furosemide (LASIX) 20 mg tablet Take 1 tablet (20 mg total) by mouth daily 30 tablet 11 05/29/2019 at Unknown time ??? hydroCHLOROthiazide (HYDRODIURIL) 25 mg tablet Take 1 tablet (25 mg total) by mouth daily 90 tablet 3 05/29/2019 at Unknown time ??? levothyroxine (SYNTHROID, LEVOTHROID) 25 mcg tablet Take 25 mcg by mouth daily 1 05/29/2019 at Unknown time ??? metFORMIN (GLUCOPHAGE) 1,000 mg tablet Take one tablet once daily at bedtime 05/29/2019 at Unknown time ??? warfarin (COUMADIN) 2 mg tablet TAKE 1-2 TABLETS BY MOUTH EVERY DAY DIRECTED (Patient takingdifferently: TAKE 1 TABLET BY MOUTH EVERY DAY DIRECTED) 180 tablet 1 05/29/2019 at Unknown time ??? zolpidem (AMBIEN) 5 mg tablet Take 5 mg by mouth nightly. at bedtime. 1 05/29/2019 at Unknown time ??? ALPRAZolam (XANAX) 0.25 mg tablet PRN Unknown at Unknown time ??? cholecalciferol, vitamin D3, (VITAMIN D3 ORAL) Take by mouth daily Unknown at Unknown time ??? losartan (COZAAR) 100 mg tablet TAKE ONE TABLET BY MOUTH ONCE DAILY 90 tablet 3 Unknown at Unknown time ??? lovastatin (MEVACOR) 10 mg tablet TAKE ONE TABLET BY MOUTH ONCE DAILY AT BEDTIME 90 tablet 3 Unknown at Unknown time ??? multivit,iron,minerals/lutein (CENTRUM SILVER ULTRA WOMEN'S ORAL) Take by mouth daily Unknown at Unknown time ??? oxyCODONE-acetaminophen (PERCOCET) 5-325 mg per tablet Take 1-2 tablets by mouth every 4 (four)hours as needed for pain 56 tablet 0 Unknown at Unknown time ??? Ozempic 0.25 mg or 0.5 mg(2 mg/1.5 mL) pen injector Inject 0.25 mg under the skin once a week More than a month at Unknown time ??? potassium chloride ER (KLOR-CON) 20 mEq CR tablet Take 1 tablet (20 mEq total) by mouth daily 30 tablet 11 Unknown at Unknown time ??? senna-docusate (PERICOLACE) 8.6-50 mg Take 2 tablets by mouth 2 (two) times a day 60 tablet 1 Unknown at Unknown time Allergies Allergen Reactions ??? Mili Inhibitors Cough Reaction: COUGH, ??? Citalopram ??? [...] by Conv) ??? Anesthesia problems Neg Hx Vitals: Most Recent : Vitals: 05/31/19 0100 BP: (!) 127/112 Pulse: 114 Resp: 14 Temp: SpO2: 90% Hemodynamics: MAP (mmHg): [59-120] 120 Pulmonary Support: O2 Therapy: Supplemental oxygen O2 Del Method: Nasal cannula O2 Flow Rate (L/min): 2 L/min Intake/Output: Intake/Output Summary (Last 24 hours) at 05/31/2019 0144 Last data filed at 05/31/2019 0100 Gross per 24 hour Intake 1791.91 ml Output 1850 ml Net -58.09 ml Objective Physical exam: Constitution: NAD Eyes: sclera anicteric, no discharge noted Head: normocephalic, atraumatic CV: tachycardia w/ irreg irreg rhythm, heart sounds normal, no S3 or S4 heard, no murmurs/gallops/rubs noted Pulm: equal chest rise and breath sounds noted, no wheezing or rales heard Abd: soft, NTND Ext: radial, DP, PT pulses felt b/l, no cyanosis but mild non-pitting edema to lower calf noted Neuro: sensation, motor response, and CN II-XII grossly intact DRAINS: Lucio LINES: PIV x2 (20, 20) Lab/Radiology/Diagnostic Review: Recent Results (from the past 48 hour(s)) POCT glucose Collection Time: 05/29/19 9:23 PM Result Value Ref Range Glucose, POC 230 (H) 70 - 199 mg/dL Basic metabolic panel Collection Time: 05/29/19 9:42 PM Result Value Ref Range Sodium 133 (L) 135 - 145 mmol/L Potassium, pl 4.3 3.3 - 4.9 mmol/L Chloride 102 97 - 110 mmol/L CO2 24 22 - 32 mmol/L Anion gap 7 2 - 15 mmol/L BUN 24 8 - 25 mg/dL Creatinine 0.66 0.60 - 1.10 mg/dL Glucose 220 (H) 70 - 199 mg/dL Calcium 8.3 (L) 8.5 - 10.3 mg/dL Magnesium Collection Time: 05/29/19 9:42 PM Result Value Ref Range Magnesium 1.6 1.4 - 2.5 mg/dL Phosphorus Collection Time: 05/29/19 9:42 PM Result Value Ref Range Phosphorus, pl 3.3 2.3 - 4.5 mg/dL Pro B-type natriuretic peptide Collection Time: 05/29/19 9:42 PM Result Value Ref Range NT-proBNP 7,985 (H) <=450 pg/mL CBC with auto differential Collection Time: 05/29/19 9:42 PM Result Value Ref Range WBC 8.5 3.8 - 9.9 K/cumm Hgb 8.1 (L) 11.9 - 15.5 g/dL Hct 25.6 (L) 35.6 - 45.5 % Plt 268 150 - 400 K/cumm MPV 10.5 9.1 - 12.3 fL RBC 2.58 (L) 3.90 - 5.20 M/cumm MCV 99.2 (H) 81.3 - 96.4 fL MCH 31.4 27.1 - 33.3 pg MCHC 31.6 (L) 32.3 - 35.7 g/dL RDW CV 15.5 (H) 11.1 - 14.9 % RDW SD 54.6 (H) 35.7 - 48.1 fL NRBC abs 0.08 (H) 0.00 - 0.01 K/cumm aPTT Collection Time: 05/29/19 9:42 PM Result Value Ref Range aPTT 103 (H) 25 - 37 sec Protime-INR Collection Time: 05/29/19 9:42 PM Result Value Ref Range PT 17.8 (H) 8.6 - 13.0 sec INR 1.6 (H) 0.8 - 1.2 Differential, auto Collection Time: 05/29/19 9:42 PM Result Value Ref Range Neutrophil abs 5.9 1.7 - 6.5 K/cumm Imm gran abs 0.1 0.0 - 0.1 K/cumm Lymphocyte abs 1.9 0.8 - 3.3 K/cumm Monocyte abs 0.7 0.2 - 0.8 K/cumm Eosinophil abs 0.0 0.0 - 0.5 K/cumm Basophil abs 0.0 0.0 - 0.1 K/cumm Neutrophil pct 68.9 % Imm gran pct 0.7 % Lymphocyte pct 21.9 % Monocyte pct 8.2 % Eosinophil pct 0.2 % Basophil pct 0.1 % POCT glucose Collection Time: 05/30/19 12:30 AM Result Value Ref Range Glucose, POC 200 (H) 70 - 199 mg/dL POCT glucose Collection Time: 05/30/19 3:09 AM Result Value Ref Range Glucose, POC 176 70 - 199 mg/dL Troponin I Collection Time: 05/30/19 3:19 AM Result Value Ref Range Troponin I 0.08 (H) 0.00 - 0.03 ng/mL aPTT Collection Time: 05/30/19 4:48 AM Result Value Ref Range aPTT 63 (H) 25 - 37 sec POCT glucose Collection Time: 05/30/19 7:33 AM Result Value Ref Range Glucose, POC 163 70 - 199 mg/dL aPTT Collection Time: 05/30/19 10:26 AM Result Value Ref Range aPTT 55 (H) 25 - 37 sec POCT glucose Collection Time: 05/30/19 11:26 AM Result Value Ref Range Glucose, POC 233 (H) 70 - 199 mg/dL Glucose comment 1 RN Notified POCT glucose Collection Time: 05/30/19 3:38 PM Result Value Ref Range Glucose, POC 190 70 - 199 mg/dL aPTT Collection Time: 05/30/19 5:44 PM Result Value Ref Range aPTT 64 (H) 25 - 37 sec POCT glucose Collection Time: 05/30/19 7:03 PM Result Value Ref Range Glucose, POC 164 70 - 199 mg/dL CBC without differential Collection Time: 05/30/19 9:46 PM Result Value Ref Range WBC 10.3 (H) 3.8 - 9.9 K/cumm Hgb 8.4 (L) 11.9 - 15.5 g/dL Hct 26.9 (L) 35.6 - 45.5 % Plt 338 150 - 400 K/cumm MPV 10.4 9.1 - 12.3 fL RBC 2.73 (L) 3.90 - 5.20 M/cumm MCV 98.5 (H) 81.3 - 96.4 fL MCH 30.8 27.1 - 33.3 pg MCHC 31.2 (L) 32.3 - 35.7 g/dL RDW CV 15.9 (H) 11.1 - 14.9 % RDW SD 54.7 (H) 35.7 - 48.1 fL NRBC abs 0.12 (H) 0.00 - 0.01 K/cumm Basic metabolic panel Collection Time: 05/30/19 9:46 PM Result Value Ref Range Sodium 132 (L) 135 - 145 mmol/L Potassium, pl 3.6 3.3 - 4.9 mmol/L Chloride 97 97 - 110 mmol/L CO2 25 22 - 32 mmol/L Anion gap 10 2 - 15 mmol/L BUN 19 8 - 25 mg/dL Creatinine 0.58 (L) 0.60 - 1.10 mg/dL Glucose 157 70 - 199 mg/dL Calcium 8.5 8.5 - 10.3 mg/dL Calcium, ionized Collection Time: 05/30/19 9:46 PM Result Value Ref Range Calcium, Ionized 4.25 (L) 4.50 - 5.10 mg/dL Magnesium Collection Time: 05/30/19 9:46 PM Result Value Ref Range Magnesium 1.8 1.4 - 2.5 mg/dL Phosphorus Collection Time: 05/30/19 9:46 PM Result Value Ref Range Phosphorus, pl 2.7 2.3 - 4.5 mg/dL POCT glucose Collection Time: 05/30/19 11:41 PM Result Value Ref Range Glucose, POC 162 70 - 199 mg/dL Protime-INR Collection Time: 05/30/19 11:59 PM Result Value Ref Range PT 17.1 (H) 8.6 - 13.0 sec INR 1.6 (H) 0.8 - 1.2 aPTT Collection Time: 05/30/19 11:59 PM Result Value Ref Range aPTT 66 (H) 25 - 37 sec No results found. Assessment /Plan No new Assessment & Plan notes have been filed under this hospital service since the last note was generated. Service: Critical Care Plan of Care: NEURO: #Acute pain - Tylenol 1g q6h PRN - oxy 5mg q4h PRN ?? #Anxiety - Continue home duloxetine - Holding home Xanax ?? #Insomnia - Holding home Ambien ?? CV: #Afib with RVR, home med: warfarin and coreg - Home meds - Hold warfarin 2mg - hold carvedilol 25 mg BID - cont Heparin gtt - d/c amio gtt - continue metop 12.5mg PO q6h, consider restarting coreg in place of metoprolol tomorrow dependingon BP - CTM coags - Medicine has seen pt #R heart strain 2/2 PE - Pro-BNP 5830 -> 7985 - stop trend - Troponin 0.036 -> 0.058 -> 0.110 -> 0.08 - stop trending - Bedside TTE w/ mild heart strain, no dysfx grossly noted - formal TTE: moderate systolic dysfunction, EF=38%. Marked LAE. Moderate MAC. Mildly dilated RV, moderate RV hypokinesis. Mild KAROL. Dilated inferior vena cava. Mild MR and TR. Moderate . - CTM peripheral edema - d/c home HCTZ - spotting with lasix as needed for FBG -500 to -1L ?? #Chronic HTN - d/c home HCTZ - Holding home amlodipine, carvedilol, losartan, & Lasix ?? #Chronic HLD - Holding home lovastatin 2/2 interaction with amiodarone ?? PULM: #Acute resp insufficiency, 2/2 Afib with RVR and PE - 3L NC, wean O2 for SpO2 >92% #Bilateral pulmonary emboli R>L - Etiology: Afib vs. Fat emboli from recent L distal femur replacement 05/20 - hep gtt - ACCS desires change to lovenox, to discuss w/ medicine - BLE Doppler + DVT in: R peroneal and soleal veins. Unable to image LLE due to dressings. #AYAD - Uses CPAP at home, unk settings. ?? GI: Diet: CLD, ADAT Bowel regimen: docusate/senna PRN PUD PPx: none ?? ENDO: #Type 2 DM - ICU HDSSI - Holding home metformin ?? #Hypothyroidism - Continue home levothyroxine 25mcg ?? RENAL: Fluid balance goal: to determine after CXR Maintenance IV fluids: none required as taking PO Electrolyte repletion orders: Will replete per SICU protocol ?? HEME: #anemia of unk etiology - Transfuse if Hgb<7.0 #anticoagulation - per above ?? ID: No acute issues ?? MSK: #L distal femur fx - WBAT for LLE per ortho d/c instructions 05/26 - Fall precautions - PT recs - call ortho to let them know Intensive Care Unit Standards of Care: Diet: CLD, ADAT Stress Ulcer Prophy: none DVT Prophy: hep gtt vs. lovenox depending on med preference Restraints: none Vascular access: PIV x2 (20, 20) Goals of care: full code Cosigned by Irais Holguin MD at 05/31/2019 2:12 AM CDT * Val Warner, PT - 05/30/2019 3:34 PM CDT Physical Therapy As supervising physical therapist, I agree with and cosign all documentation provided on this date by student, Nadiya Taylor, KANDACE Warner, DPT, 05/30/19, 3:35 PM * Geovanna Luna [facility] - 05/30/2019 11:51 AM CDT Patient profile has been reviewed by a clinical customer contact specialist on 05/30/2019. Case reviewed on rounds with multidisciplinary team or outside of rounds with prescribers as necessary. Additional significant interventions or issues related to ongoing monitoring are listed below as appropriate. Increase metoprolol to 12.5 mg q6h for heart rate control. Discontinue hydrochlorothiazide. Increase to a high dose sliding scale insulin and discontinue D5LR at 25 mL/hr. Geovanna Luna [facility], Pharm.D. * Cuba Singleton MD - 05/30/2019 6:18 AM CDT ICU Progress Note Team: Red AM Subjective Patient is a 79 y.o. female with PMH of Afib (warfar and coreg), DM2 (no insulin), and recent L distal femur fx (s/p reduction 2/ ortho 05/21/19) who presented as a transfer to the ICU for bilateral PEfound incidentally after patient presented in Afib w/ RVR subtherapeutic on warfarin from rehab. Admitted for symptomatic PE and Afib with RVR. Interval History: Pt started on amio gtt and heparin gtt with good response. HR now 120s. Pt now denying any chest pain. Pt breathing more easily on 4L NC, at home on no supplemental O2. Pt reports edema began over the last 24 hours, not bother her at this time. Past Medical History: Diagnosis Date ??? Atrial fibrillation (CMS/HCC) ??? Dyslipidemia ??? Hypertension ??? Hypothyroidism ??? Mitral regurgitation ??? Obesity ??? PONV (postoperative nausea and vomiting) ??? Sleep apnea Past Surgical History: Procedure Laterality Date ??? BREAST LUMPECTOMY ??? CHOLECYSTECTOMY ??? HAND SURGERY Left plate & screws ??? HYSTERECTOMY ??? INCISION AND DRAINAGE FEMUR Left 05/22/2019 Medications Prior to Admission Medication Sig Dispense Refill Last Dose ??? ALPRAZolam (XANAX) 0.25 mg tablet PRN Taking ??? amLODIPine (NORVASC) 5 mg tablet TAKE ONE TABLET BY MOUTH ONCE DAILY 90 tablet 1 Taking ??? carvedilol (COREG) 25 mg tablet Take 1 tablet (25 mg total) by mouth 2 (two) times a day with meals 60 tablet 11 ??? cholecalciferol, vitamin D3, (VITAMIN D3 ORAL) Take by mouth daily Taking ??? DULoxetine DR (CYMBALTA) 30 mg capsule Take 60 mg by mouth daily Taking ??? furosemide (LASIX) 20 mg tablet Take 1 tablet (20 mg total) by mouth daily 30 tablet 11 ??? hydroCHLOROthiazide (HYDRODIURIL) 25 mg tablet Take 1 tablet (25 mg total) by mouth daily 90 tablet 3 ??? levothyroxine (SYNTHROID, LEVOTHROID) 25 mcg tablet Take 25 mcg by mouth daily 1 Taking ??? losartan (COZAAR) 100 mg tablet TAKE ONE TABLET BY MOUTH ONCE DAILY 90 tablet 3 ??? lovastatin (MEVACOR) 10 mg tablet TAKE ONE TABLET BY MOUTH ONCE DAILY AT BEDTIME 90 tablet 3 ??? metFORMIN (GLUCOPHAGE) 1,000 mg tablet Take one tablet once daily at bedtime 05/20/2019 at 20 ??? multivit,iron,minerals/lutein (CENTRUM SILVER ULTRA WOMEN'S ORAL) Take by mouth daily Taking ??? oxyCODONE-acetaminophen (PERCOCET) 5-325 mg per tablet Take 1-2 tablets by mouth every 4 (four)hours as needed for pain 56 tablet 0 ??? Ozempic 0.25 mg or 0.5 mg(2 mg/1.5 mL) pen injector Inject 0.25 mg under the skin once a week ??? potassium chloride ER (KLOR-CON) 20 mEq CR tablet Take 1 tablet (20 mEq total) by mouth daily 30 tablet 11 ??? senna-docusate (PERICOLACE) 8.6-50 mg Take 2 tablets by mouth 2 (two) times a day 60 tablet 1 ??? warfarin (COUMADIN) 2 mg tablet TAKE 1-2 TABLETS BY MOUTH EVERY DAY DIRECTED (Patient takingdifferently: TAKE 1 TABLET BY MOUTH EVERY DAY DIRECTED) 180 tablet 1 05/20/2019 at 20 ??? zolpidem (AMBIEN) 5 mg tablet Take 5 mg by mouth nightly. at bedtime. 1 Taking Allergies Allergen Reactions ??? Mili Inhibitors Cough Reaction: COUGH, ??? Citalopram ??? [...] Conv) ??? Anesthesia problems Neg Hx Vitals: Most Recent : Vitals: 05/30/19 0600 BP: (!) 123/102 Pulse: 120 Resp: 16 Temp: SpO2: 96% Hemodynamics: MAP (mmHg): [82-110] 109 Pulmonary Support: O2 Therapy: Supplemental oxygen O2 Del Method: Nasal cannula O2 Flow Rate (L/min): 3 L/min Intake/Output: Intake/Output Summary (Last 24 hours) at 05/30/2019 0618 Last data filed at 05/30/2019 0600 Gross per 24 hour Intake 821.39 ml Output 910 ml Net -88.61 ml Objective Physical exam: Constitution: Pt encountered laying in bed in NAD, appears overweight Eyes: sclera anicteric, no discharge noted Head: normocephalic, atraumatic CV: tachycardia w/ irreg irreg rhythm, heart sounds normal, no S3 or S4 heard, no murmurs/gallops/rubs noted Pulm: equal chest rise and breath sounds noted, no wheezing or rales heard Abd: soft, NTND Ext: radial, DP, PT pulses felt b/l, no cyanosis but mild non-pitting edema to lower calf noted Neuro: sensation, motor response, and CN II-XII grossly intact DRAINS: Lucio LINES: PIV x2 (20, 20) Lab/Radiology/Diagnostic Review: Recent Results (from the past 48 hour(s)) POCT glucose Collection Time: 05/29/19 9:23 PM Result Value Ref Range Glucose, POC 230 (H) 70 - 199 mg/dL Basic metabolic panel Collection Time: 05/29/19 9:42 PM Result Value Ref Range Sodium 133 (L) 135 - 145 mmol/L Potassium, pl 4.3 3.3 - 4.9 mmol/L Chloride 102 97 - 110 mmol/L CO2 24 22 - 32 mmol/L Anion gap 7 2 - 15 mmol/L BUN 24 8 - 25 mg/dL Creatinine 0.66 0.60 - 1.10 mg/dL Glucose 220 (H) 70 - 199 mg/dL Calcium 8.3 (L) 8.5 - 10.3 mg/dL Magnesium Collection Time: 05/29/19 9:42 PM Result Value Ref Range Magnesium 1.6 1.4 - 2.5 mg/dL Phosphorus Collection Time: 05/29/19 9:42 PM Result Value Ref Range Phosphorus, pl 3.3 2.3 - 4.5 mg/dL Pro B-type natriuretic peptide Collection Time: 05/29/19 9:42 PM Result Value Ref Range NT-proBNP 7,985 (H) <=450 pg/mL CBC with auto differential Collection Time: 05/29/19 9:42 PM Result Value Ref Range WBC 8.5 3.8 - 9.9 K/cumm Hgb 8.1 (L) 11.9 - 15.5 g/dL Hct 25.6 (L) 35.6 - 45.5 % Plt 268 150 - 400 K/cumm MPV 10.5 9.1 - 12.3 fL RBC 2.58 (L) 3.90 - 5.20 M/cumm MCV 99.2 (H) 81.3 - 96.4 fL MCH 31.4 27.1 - 33.3 pg MCHC 31.6 (L) 32.3 - 35.7 g/dL RDW CV 15.5 (H) 11.1 - 14.9 % RDW SD 54.6 (H) 35.7 - 48.1 fL NRBC abs 0.08 (H) 0.00 - 0.01 K/cumm aPTT Collection Time: 05/29/19 9:42 PM Result Value Ref Range aPTT 103 (H) 25 - 37 sec Protime-INR Collection Time: 05/29/19 9:42 PM Result Value Ref Range PT 17.8 (H) 8.6 - 13.0 sec INR 1.6 (H) 0.8 - 1.2 Differential, auto Collection Time: 05/29/19 9:42 PM Result Value Ref Range Neutrophil abs 5.9 1.7 - 6.5 K/cumm Imm gran abs 0.1 0.0 - 0.1 K/cumm Lymphocyte abs 1.9 0.8 - 3.3 K/cumm Monocyte abs 0.7 0.2 - 0.8 K/cumm Eosinophil abs 0.0 0.0 - 0.5 K/cumm Basophil abs 0.0 0.0 - 0.1 K/cumm Neutrophil pct 68.9 % Imm gran pct 0.7 % Lymphocyte pct 21.9 % Monocyte pct 8.2 % Eosinophil pct 0.2 % Basophil pct 0.1 % POCT glucose Collection Time: 05/30/19 12:30 AM Result Value Ref Range Glucose, POC 200 (H) 70 - 199 mg/dL POCT glucose Collection Time: 05/30/19 3:09 AM Result Value Ref Range Glucose, POC 176 70 - 199 mg/dL Troponin I Collection Time: 05/30/19 3:19 AM Result Value Ref Range Troponin I 0.08 (H) 0.00 - 0.03 ng/mL aPTT Collection Time: 05/30/19 4:48 AM Result Value Ref Range aPTT 63 (H) 25 - 37 sec No results found. Assessment /Plan No new Assessment & Plan notes have been filed under this hospital service since the last note was generated. Service: Critical Care Plan of Care: NEURO: #Acute pain - Tylenol 1g q6h PRN - oxy 5mg q4h PRN ?? #Anxiety - Continue home duloxetine - Holding home Xanax ?? #Insomnia - Holding home Ambien ?? CV: #Afib with RVR, home med: warfarin and coreg - Home meds - Hold warfarin 2mg - hold carvedilol 25 mg BID - cont Heparin gtt - cont amio @ 0.5 through evening, then d/c - started metop 12.5mg PO BID for increased rate control - inc to q6h - CTM coags - Cardiology vs. Medicine c/s #R heart strain 2/2 PE - Pro-BNP 5830 -> 7985 - stop trend - Troponin 0.036 -> 0.058 -> 0.110 -> 0.08 - stop trending - TTE w/ mild heart strain, no dysfx grossly noted - formal TTE - CTM peripheral edema - d/c home HCTZ - restart home lasix after CXR ?? #Chronic HTN - d/c home HCTZ - Holding home amlodipine, carvedilol, losartan, & Lasix ?? #Chronic HLD - Holding home lovastatin 2/2 interaction with amiodarone ?? PULM: #Acute resp insufficiency, 2/2 Afib with RVR and PE - 3L NC, wean O2 for SpO2 >92% #Bilateral pulmonary emboli R>L - Etiology: Afib vs. Fat emboli from recent L distal femur replacement 05/20 - hep gtt - ACCS desires change to lovenox, to discuss w/ medicine - BLE Doppler + DVT in: R peroneal and soleal veins. Unable to image LLE due to dressings. #AYAD - Uses CPAP at home, unk settings. ?? GI: Diet: CLD, ADAT Bowel regimen: docusate/senna PRN PUD PPx: none ?? ENDO: #Type 2 DM - ICU HDSSI - Holding home metformin ?? #Hypothyroidism - Continue home levothyroxine 25mcg ?? RENAL: Fluid balance goal: to determine after CXR Maintenance IV fluids: none required as taking PO Electrolyte repletion orders: Will replete per SICU protocol ?? HEME: #anemia of unk etiology - Transfuse if Hgb<7.0 #anticoagulation - per above ?? ID: No acute issues ?? MSK: #L distal femur fx - WBAT for LLE per ortho d/c instructions 05/26 - Fall precautions - PT recs - call ortho to let them know Intensive Care Unit Standards of Care: Diet: CLD, ADAT Stress Ulcer Prophy: none DVT Prophy: hep gtt vs. lovenox depending on med preference Restraints: none Vascular access: PIV x2 (20, 20) Goals of care: full code Cuba Singleton MD Red 1 Cosigned by Miguel Centeno MD PhD at 05/30/2019 5:18 PM CDT * Khanh Anderson MD - 05/30/2019 2:06 AM CDT [facility] ICU Daily Progress Subjective Patient is a 79 y.o. female admitted on 05/29/2019 9:14 PM with chief complaint of No chief complaint on file. Interval History: NAEON. Remains tachycardic to low 120s. On amiodarone. Objective Physical Exam: GENERAL: No acute distress NEURO: Alert and oriented x3 PSYCH: appropriate mood and affect HEENT: normocephalic, atraumatic, pupils equal, EOMs grossly intact, neck supple, trachea midline RESP: No audible wheezing, normal effort CARDIO: RRR ABDOMEN: Soft, NT/ND Ext: no edema. Warm and well perfused, no gross deformity MUSCULOSKELETAL: Grossly normal range of motion Active and Removed Drain / Nasogastric/Orogastric tube / Rectal tube / Gastrostomy/Enterostomy / Chest tube Urethral Catheter Temperature probe 14 Fr. less than 1 day Vital signs for last 24 hours: Temp: [36.7 ??C (98.1 ??F)-36.9 ??C (98.5 ??F)] 36.9 ??C (98.5 ??F) Pulse: [105-127] 108 BP: (103-124)/(71-94) 124/83 Resp: [17-23] 20 SpO2: [89 %-97 %] 96 % Hemodynamics: MAP (mmHg): [82-97] 93 Pulmonary Support: O2 Therapy: Supplemental oxygen O2 Del Method: Nasal cannula O2 Flow Rate (L/min): 3 L/min Intake/Output: I/O this shift: In: 225 [I.V.:75; IV Piggyback:150] Out: 620 [Urine:620] Lab/Radiology/Diagnostic Review: Recent Results (from the past 72 hour(s)) POCT glucose Collection Time: 05/27/19 4:35 AM Result Value Ref Range Glucose, POC 174 70 - 199 mg/dL POCT glucose Collection Time: 05/27/19 7:30 AM Result Value Ref Range Glucose, POC 176 70 - 199 mg/dL POCT glucose Collection Time: 05/27/19 11:49 AM Result Value Ref Range Glucose, POC 213 (H) 70 - 199 mg/dL POCT glucose Collection Time: 05/29/19 9:23 PM Result Value Ref Range Glucose, POC 230 (H) 70 - 199 mg/dL Basic metabolic panel Collection Time: 05/29/19 9:42 PM Result Value Ref Range Sodium 133 (L) 135 - 145 mmol/L Potassium, pl 4.3 3.3 - 4.9 mmol/L Chloride 102 97 - 110 mmol/L CO2 24 22 - 32 mmol/L Anion gap 7 2 - 15 mmol/L BUN 24 8 - 25 mg/dL Creatinine 0.66 0.60 - 1.10 mg/dL Glucose 220 (H) 70 - 199 mg/dL Calcium 8.3 (L) 8.5 - 10.3 mg/dL Magnesium Collection Time: 05/29/19 9:42 PM Result Value Ref Range Magnesium 1.6 1.4 - 2.5 mg/dL Phosphorus Collection Time: 05/29/19 9:42 PM Result Value Ref Range Phosphorus, pl 3.3 2.3 - 4.5 mg/dL Pro B-type natriuretic peptide Collection Time: 05/29/19 9:42 PM Result Value Ref Range NT-proBNP 7,985 (H) <=450 pg/mL CBC with auto differential Collection Time: 05/29/19 9:42 PM Result Value Ref Range WBC 8.5 3.8 - 9.9 K/cumm Hgb 8.1 (L) 11.9 - 15.5 g/dL Hct 25.6 (L) 35.6 - 45.5 % Plt 268 150 - 400 K/cumm MPV 10.5 9.1 - 12.3 fL RBC 2.58 (L) 3.90 - 5.20 M/cumm MCV 99.2 (H) 81.3 - 96.4 fL MCH 31.4 27.1 - 33.3 pg MCHC 31.6 (L) 32.3 - 35.7 g/dL RDW CV 15.5 (H) 11.1 - 14.9 % RDW SD 54.6 (H) 35.7 - 48.1 fL NRBC abs 0.08 (H) 0.00 - 0.01 K/cumm aPTT Collection Time: 05/29/19 9:42 PM Result Value Ref Range aPTT 103 (H) 25 - 37 sec Protime-INR Collection Time: 05/29/19 9:42 PM Result Value Ref Range PT 17.8 (H) 8.6 - 13.0 sec INR 1.6 (H) 0.8 - 1.2 Differential, auto Collection Time: 05/29/19 9:42 PM Result Value Ref Range Neutrophil abs 5.9 1.7 - 6.5 K/cumm Imm gran abs 0.1 0.0 - 0.1 K/cumm Lymphocyte abs 1.9 0.8 - 3.3 K/cumm Monocyte abs 0.7 0.2 - 0.8 K/cumm Eosinophil abs 0.0 0.0 - 0.5 K/cumm Basophil abs 0.0 0.0 - 0.1 K/cumm Neutrophil pct 68.9 % Imm gran pct 0.7 % Lymphocyte pct 21.9 % Monocyte pct 8.2 % Eosinophil pct 0.2 % Basophil pct 0.1 % POCT glucose Collection Time: 05/30/19 12:30 AM Result Value Ref Range Glucose, POC 200 (H) 70 - 199 mg/dL No results found. Trauma Surgical plan: #afib -on amiodarone gtt -ECHO #troponinemia -likely demand ischemia -continue resuscitation. -cardiology consult. #b/l PE -hep gtt -> lovenox -LEVD #recent femur repair -PT/OT -Ok for diet from our standpoint. -Transfer to medicine Parris Fay M.D. General Surgery, PGY-4 2:09 AM [phone] I have personally seen and examined this patient on the date of service as documented on the resident note and have reviewed and confirmed the history, physical exam, laboratory,radiographic data, assessment and plan as documented by the resident. Khanh Anderson MD Section of Acute and Critical Care Surgery * Parris Fay MD - 05/29/2019 10:55 PM CDT [facility] History and Physical Encounter Date: 05/29/19 Patient Identification Patient's Primary Care Physician: Wilber Cleaning Jr., MD Name: Prema Hodgson Age: 79 y.o. Sex: female Patient information was obtained from patient and past medical records. History/Exam limitations: none. Patient presented to SICU as OSH transfer Chief Complaint SOB History of Present Illness: Prema Hodgson is a 79 y.o. female who underwent a left distal femoral replacement for an open distal femur fracture on 05/21/19. Her post op course was complicated by two instances of afib with RVR, treated with metoprolol. 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 She was taken to an OSH from her rehab facility for worsening SOB and chest pain. She was found to be in afib and CT PE showed b/l pulm emboli. She was given dilt and heparin and started on gtts. Labs notable for rising troponin, elevated lactate and pro-BNP. Coumadin was subtherapeutic. On arrivalhere, HR is 110s, she is currently on nasal canula. She's denying chest pain at this time but states she can feel her heart beating fast. Past Medical: Past Medical History: Diagnosis Date ??? Atrial fibrillation (CMS/HCC) ??? Dyslipidemia ??? Hypertension ??? Hypothyroidism ??? Mitral regurgitation ??? Obesity ??? PONV (postoperative nausea and vomiting) ??? Sleep apnea Surgical History: Past Surgical History: Procedure Laterality Date ??? BREAST LUMPECTOMY ??? CHOLECYSTECTOMY ??? HAND SURGERY Left plate & screws ??? HYSTERECTOMY ??? INCISION AND DRAINAGE FEMUR Left 05/22/2019 Current Medications: Current Facility-Administered Medications Medication Dose Route Frequency Provider Last Rate Last Dose ??? acetaminophen (TYLENOL) tablet 1,000 mg 1,000 mg oral Q6H PRN Kevin Riley MD ??? amiodarone in dextrose (NEXTERONE) 360 mg/200 mL (1.8 mg/mL) infusion (premix) 1 mg/min intravenous Continuous Kevin Riley MD 33.3 mL/hr at 05/29/19 2200 1 mg/min at 05/29/19 2200 Followed by ??? [START ON 05/30/2019] amiodarone in dextrose (NEXTERONE) 360 mg/200 mL (1.8 mg/mL) infusion (premix) 0.5 mg/min intravenous Continuous Kevin Riley MD ??? [START ON 05/30/2019] cholecalciferol (VITAMIN D-3) capsule 2,000 Units 2,000 Units oral Daily Kevin Riley MD ??? dextrose (GLUTOSE) 40 % gel 15 g 15 g oral Q15 Min PRN Kevin Riley MD Or ??? dextrose (D10W) 10% bolus 250 mL 250 mL intravenous Q15 Min PRN Kevin Riley MD ??? dextrose 5% and Lactated Ringer's infusion 25 mL/hr intravenous Continuous Kevin Riley MD25 mL/hr at 05/29/194 25 mL/hr at 05/29/194 ??? [START ON 05/30/2019] DULoxetine DR (CYMBALTA) extended release capsule 60 mg 60 mg oral Daily Kevin Riley MD ??? glucagon injection 1 mg 1 mg intramuscular Q30 Min PRN Kevin Riley MD ??? heparin 1,000 unit/mL injection 2,000 Units 2,000 Units intravenous Q6H PRN Kevin Riley MD Or ??? heparin 1,000 unit/mL injection 3,000 Units 3,000 Units intravenous Q6H PRN Kevin Riley MD ??? heparin 1,000 unit/mL injection 5,400 Units 60 Units/kg intravenous Once Kevin Riley MD ??? heparin in 0.45% sodium chloride 25,000 units/250 mL (100 units/mL) infusion (premix) 1-33 Units/kg/hr intravenous Titrated Kevin Riley MD 11.79 mL/hr at 05/29/192230 13 Units/kg/hr at 05/29/192230 ??? [START ON 05/30/2019] hydroCHLOROthiazide (HYDRODIURIL) tablet 25 mg 25 mg oral Daily Kevin Riley MD ??? [START ON 05/30/2019] insulin lispro (HumaLOG) injection 1-5 Units 1-5 Units subcutaneous Q4H [facility] Kevin Riley MD 3 Units at 05/29/192147 ??? [START ON 05/30/2019] levothyroxine (SYNTHROID) tablet 25 mcg 25 mcg oral Daily Kevin Riley MD ??? magnesium sulfate 2 g/50 mL in water (premix) 2 g 2 g intravenous Once Kevin Riley MD 2 gat 05/29/192246 ??? [START ON 05/30/2019] multivit obmsvgkg-tevo-GL-calcium (THERA-M) tablet 1 tablet 1 tablet oral Daily Kevin Riley MD ??? ondansetron (ZOFRAN) injection 4 mg 4 mg intravenous Q6H PRN Kevin Riley MD ??? oxyCODONE (ROXICODONE) tablet 5 mg 5 mg oral Q4H PRN Kevin Riley MD ??? senna-docusate (PERICOLACE) 8.6-50 mg per tablet 1 tablet 1 tablet oral BID PRN Kevin Riley MD ??? sodium chloride 0.9% flush 0.5-20 mL 0.5-20 mL intra-catheter Q8H [facility]IS[facility] Kevin Riley MD 10 mL at 05/29/192148 ??? sodium chloride 0.9% flush 0.5-20 mL 0.5-20 mL intra-catheter PRN Kevin Riley MD Allergies: Allergies Allergen Reactions ??? Mili Inhibitors Cough Reaction: COUGH, ??? Citalopram ??? [...] ??? Anesthesia problems Neg Hx Social History: reports that she has never smoked. She has never used smokeless tobacco. She reports current alcohol use. She reports that she does not use drugs. Review of Systems Constitutional: Negative for fatigue, weight loss, fevers, chills, anorexia. Eyes: Negative for changes in vision or ocular discharge Ears, nose, mouth, and throat: Negative for ear pain, nasal drainage, sore throat Respiratory: Negative for acute cough, asthma, wheezing. +for SOB Cardiovascular: Negative for cyanosis. +for chest pain. Gastrointestinal: Negative for nausea, vomiting, hemetemesis, hematochezia, abdominal pain, constipation, diarrhea Genitourinary: Negative for dysuria, hematuria Skin: Negative for rash Hematologic/lymphatic: Negative for easy bruising Musculoskeletal:Negative for joint pain, muscle pain Neurological: Negative for headaches, seizures Physical Examination: Ht: Wt: There is no height or weight on file to calculate BMI. BP 116/86 (BP Location: Right arm, Patient Position: Lying) Pulse 109 Temp 36.7 ??C (98.1 ??F) (Oral) Resp 21 SpO2 95% GENERAL: No acute distress, mildly uncomfortable appearing. NEURO: Alert and oriented x3 PSYCH: appropriate mood and affect HEENT: normocephalic, atraumatic, pupils equal, EOMs grossly intact, neck supple, trachea midline RESP: No audible wheezing, normal effort CARDIO: Irregular rhythm, tachycardic. ABDOMEN: Soft, NT/ND Ext: no cyanosis, clubbing, or edema. Warm and well perfused Labs, Radiology and Diagnostic Review: Laboratory review: Lab results in the last 24 hours: Recent Results (from the past 24 hour(s)) POCT glucose Collection Time: 05/29/19 9:23 PM Result Value Ref Range Glucose, POC 230 (H) 70 - 199 mg/dL Basic metabolic panel Collection Time: 05/29/19 9:42 PM Result Value Ref Range Sodium 133 (L) 135 - 145 mmol/L Potassium, pl 4.3 3.3 - 4.9 mmol/L Chloride 102 97 - 110 mmol/L CO2 24 22 - 32 mmol/L Anion gap 7 2 - 15 mmol/L BUN 24 8 - 25 mg/dL Creatinine 0.66 0.60 - 1.10 mg/dL Glucose 220 (H) 70 - 199 mg/dL Calcium 8.3 (L) 8.5 - 10.3 mg/dL Magnesium Collection Time: 05/29/19 9:42 PM Result Value Ref Range Magnesium 1.6 1.4 - 2.5 mg/dL Phosphorus Collection Time: 05/29/19 9:42 PM Result Value Ref Range Phosphorus, pl 3.3 2.3 - 4.5 mg/dL Pro B-type natriuretic peptide Collection Time: 05/29/19 9:42 PM Result Value Ref Range NT-proBNP 7,985 (H) <=450 pg/mL CBC with auto differential Collection Time: 05/29/19 9:42 PM Result Value Ref Range WBC 8.5 3.8 - 9.9 K/cumm Hgb 8.1 (L) 11.9 - 15.5 g/dL Hct 25.6 (L) 35.6 - 45.5 % Plt 268 150 - 400 K/cumm MPV 10.5 9.1 - 12.3 fL RBC 2.58 (L) 3.90 - 5.20 M/cumm MCV 99.2 (H) 81.3 - 96.4 fL MCH 31.4 27.1 - 33.3 pg MCHC 31.6 (L) 32.3 - 35.7 g/dL RDW CV 15.5 (H) 11.1 - 14.9 % RDW SD 54.6 (H) 35.7 - 48.1 fL NRBC abs 0.08 (H) 0.00 - 0.01 K/cumm aPTT Collection Time: 05/29/19 9:42 PM Result Value Ref Range aPTT 103 (H) 25 - 37 sec Protime-INR Collection Time: 05/29/19 9:42 PM Result Value Ref Range PT 17.8 (H) 8.6 - 13.0 sec INR 1.6 (H) 0.8 - 1.2 Differential, auto Collection Time: 05/29/19 9:42 PM Result Value Ref Range Neutrophil abs 5.9 1.7 - 6.5 K/cumm Imm gran abs 0.1 0.0 - 0.1 K/cumm Lymphocyte abs 1.9 0.8 - 3.3 K/cumm Monocyte abs 0.7 0.2 - 0.8 K/cumm Eosinophil abs 0.0 0.0 - 0.5 K/cumm Basophil abs 0.0 0.0 - 0.1 K/cumm Neutrophil pct 68.9 % Imm gran pct 0.7 % Lymphocyte pct 21.9 % Monocyte pct 8.2 % Eosinophil pct 0.2 % Basophil pct 0.1 % Assessment and Plan: Patient Active Problem List Diagnosis ??? Carotid bruit ??? Obesity with body mass index 30 or greater ??? Snoring ??? Atrial fibrillation (CMS/HCC) [I48.91] ??? Open fracture of left distal femur (CMS/HCC) ??? Closed displaced comminuted fracture of shaft of left femur (CMS/HCC) Prema Hodgson is a 79 y.o. female with history of recent admission for open fracture of distalfemur, discharged on 05/27/19 after replacement of left distal femur, now returning with PE and a fib with RVR -lovenox -rate control -ECHO -cardiology consult. Discussed with attending: Keanu Hwang at 2300 (time). Parris Fay MD Cosigned by Keanu Hwang MD at 05/30/2019 6:32 AM CDT Associated attestation - Keanu Hwang MD - 05/30/2019 6:32 AM CDT I have seen and examined the patient on 05/30/19. I agree with the findings and plan of care as documented in the resident's/fellow's note. documented in this encounter H&P Notes * Kevin Riley MD - 05/29/2019 9:55 PM CDT ICU History and Physical Team: Red PM Subjective Patient is a 79 y.o. female presented to the ICU with chief complaint of chest pain and shortness of breath. HPI: Ms. Hodgson is a 79 yo F with h/o chronic Afib with RVR, T2DM, and recent L distal femoral fx s/p replacement by Ortho at [facility] 05/20 and clean out of bone fragments 05/21 presenting with increasing SOB andchest pain at her rehab facility. She reports that SOB started perioperatively and has gradually been worsening. She was placed on supp O2 at the rehab facility, which she does not require at baseline. She has had intermittent chest pressure R>L, which does not radiate to the extremities or jaw.She denies any chest pain at the moment. She denies any nausea, vomiting, abdominal pain, AMS, weakness, or numbness/tingling. Pt has had chronic paroxysmal Afib for many years, takes warfarin 2mg every day, and gets frequent INR checks. INR was subtherapeutic at 1.3 on last check prior to this hospitalization on 05/26/19. INR today was 1.6. At the OSH prior to transfer, she was found to be in Afib with RVR, and CT PE revealed bilateral pulm emboli R>L. She was given a diltiazem bolus 10mg and heparin bolus 8000u and then started on adiltiazem and heparin gtt. Labs revealed pro-BNP 5830, lactate 4.7, and troponin 0.036 -> 0.058 -> 0.110. Past Medical History: Diagnosis Date ??? Atrial fibrillation (CMS/HCC) ??? Dyslipidemia ??? Hypertension ??? Hypothyroidism ??? Mitral regurgitation ??? Obesity ??? PONV (postoperative nausea and vomiting) ??? Sleep apnea Past Surgical History: Procedure Laterality Date ??? BREAST LUMPECTOMY ??? CHOLECYSTECTOMY ??? HAND SURGERY Left plate & screws ??? HYSTERECTOMY ??? INCISION AND DRAINAGE FEMUR Left 05/22/2019 Medications Prior to Admission Medication Sig Dispense Refill Last Dose ??? ALPRAZolam (XANAX) 0.25 mg tablet PRN Taking ??? amLODIPine (NORVASC) 5 mg tablet TAKE ONE TABLET BY MOUTH ONCE DAILY 90 tablet 1 Taking ??? carvedilol (COREG) 25 mg tablet Take 1 tablet (25 mg total) by mouth 2 (two) times a day with meals 60 tablet 11 ??? cholecalciferol, vitamin D3, (VITAMIN D3 ORAL) Take by mouth daily Taking ??? DULoxetine DR (CYMBALTA) 30 mg capsule Take 60 mg by mouth daily Taking ??? furosemide (LASIX) 20 mg tablet Take 1 tablet (20 mg total) by mouth daily 30 tablet 11 ??? hydroCHLOROthiazide (HYDRODIURIL) 25 mg tablet Take 1 tablet (25 mg total) by mouth daily 90 tablet 3 ??? levothyroxine (SYNTHROID, LEVOTHROID) 25 mcg tablet Take 25 mcg by mouth daily 1 Taking ??? losartan (COZAAR) 100 mg tablet TAKE ONE TABLET BY MOUTH ONCE DAILY 90 tablet 3 ??? lovastatin (MEVACOR) 10 mg tablet TAKE ONE TABLET BY MOUTH ONCE DAILY AT BEDTIME 90 tablet 3 ??? metFORMIN (GLUCOPHAGE) 1,000 mg tablet Take one tablet once daily at bedtime 05/20/2019 at 20 ??? multivit,iron,minerals/lutein (CENTRUM SILVER ULTRA WOMEN'S ORAL) Take by mouth daily Taking ??? oxyCODONE-acetaminophen (PERCOCET) 5-325 mg per tablet Take 1-2 tablets by mouth every 4 (four)hours as needed for pain 56 tablet 0 ??? potassium chloride ER (KLOR-CON) 20 mEq CR tablet Take 1 tablet (20 mEq total) by mouth daily 30 tablet 11 ??? senna-docusate (PERICOLACE) 8.6-50 mg Take 2 tablets by mouth 2 (two) times a day 60 tablet 1 ??? warfarin (COUMADIN) 2 mg tablet TAKE 1-2 TABLETS BY MOUTH EVERY DAY DIRECTED (Patient takingdifferently: TAKE 1 TABLET BY MOUTH EVERY DAY DIRECTED) 180 tablet 1 05/20/2019 at 20 ??? zolpidem (AMBIEN) 5 mg tablet Take 5 mg by mouth nightly. at bedtime. 1 Taking Allergies Allergen Reactions ??? Mili Inhibitors Cough Reaction: COUGH, ??? Citalopram ??? [...] Anesthesia problems Neg Hx Review of Systems: All review of systems are negative except for subjective SOB and feeling hot Vitals: Most Recent : Vitals: 05/29/192150 BP: 111/94 Pulse: 109 Resp: Temp: Hemodynamics: MAP (mmHg): [82-90] 82 Pulmonary Support: O2 Therapy: Supplemental oxygen O2 Del Method: Nasal cannula O2 Flow Rate (L/min): 4 L/min Intake/Output: Intake/Output Summary (Last 24 hours) at 05/29/20192155 Last data filed at 05/29/20192149 Gross per 24 hour Intake 100 ml Output -- Net 100 ml Objective Physical exam: General: Awake, NAD Neuro: A&Ox4, follows commands, PERRL, EOMI, face symmetric, tongue midline; moves all extremities well x4 with 5/5 strength Cardiac: irregularly irregular & tachycardic Pulmonary: NLB, CTAB Abdominal: NABS, soft, nondistended, mildly tender to palpation over RUQ Extremities: LLE incision c/d/i with overlying MILI wrap, mild peripheral edema 1+, PPP, distal extremities warm Drains: Lucio with yellow urine Lab/Radiology/Diagnostic Review: Imaging review: CT PE reveals R segmental PE and small L PE Recent Results (from the past 48 hour(s)) POCT glucose Collection Time: 05/29/19 9:23 PM Result Value Ref Range Glucose, POC 230 (H) 70 - 199 mg/dL Basic metabolic panel Collection Time: 05/29/19 9:42 PM Result Value Ref Range Sodium 133 (L) 135 - 145 mmol/L Potassium, pl 4.3 3.3 - 4.9 mmol/L Chloride 102 97 - 110 mmol/L CO2 24 22 - 32 mmol/L Anion gap 7 2 - 15 mmol/L BUN 24 8 - 25 mg/dL Creatinine 0.66 0.60 - 1.10 mg/dL Glucose 220 (H) 70 - 199 mg/dL Calcium 8.3 (L) 8.5 - 10.3 mg/dL Magnesium Collection Time: 05/29/19 9:42 PM Result Value Ref Range Magnesium 1.6 1.4 - 2.5 mg/dL Phosphorus Collection Time: 05/29/19 9:42 PM Result Value Ref Range Phosphorus, pl 3.3 2.3 - 4.5 mg/dL Pro B-type natriuretic peptide Collection Time: 05/29/19 9:42 PM Result Value Ref Range NT-proBNP 7,985 (H) <=450 pg/mL CBC with auto differential Collection Time: 05/29/19 9:42 PM Result Value Ref Range WBC 8.5 3.8 - 9.9 K/cumm Hgb 8.1 (L) 11.9 - 15.5 g/dL Hct 25.6 (L) 35.6 - 45.5 % Plt 268 150 - 400 K/cumm MPV 10.5 9.1 - 12.3 fL RBC 2.58 (L) 3.90 - 5.20 M/cumm MCV 99.2 (H) 81.3 - 96.4 fL MCH 31.4 27.1 - 33.3 pg MCHC 31.6 (L) 32.3 - 35.7 g/dL RDW CV 15.5 (H) 11.1 - 14.9 % RDW SD 54.6 (H) 35.7 - 48.1 fL NRBC abs 0.08 (H) 0.00 - 0.01 K/cumm aPTT Collection Time: 05/29/19 9:42 PM Result Value Ref Range aPTT 103 (H) 25 - 37 sec Protime-INR Collection Time: 05/29/19 9:42 PM Result Value Ref Range PT 17.8 (H) 8.6 - 13.0 sec INR 1.6 (H) 0.8 - 1.2 Differential, auto Collection Time: 05/29/19 9:42 PM Result Value Ref Range Neutrophil abs 5.9 1.7 - 6.5 K/cumm Imm gran abs 0.1 0.0 - 0.1 K/cumm Lymphocyte abs 1.9 0.8 - 3.3 K/cumm Monocyte abs 0.7 0.2 - 0.8 K/cumm Eosinophil abs 0.0 0.0 - 0.5 K/cumm Basophil abs 0.0 0.0 - 0.1 K/cumm Neutrophil pct 68.9 % Imm gran pct 0.7 % Lymphocyte pct 21.9 % Monocyte pct 8.2 % Eosinophil pct 0.2 % Basophil pct 0.1 % No results found. Assessment /Plan Active Problems: No Active Problems: There are no active problems currently on the Problem List. Please update the Problem List and refresh. Plan of Care: NEURO: #Acute pain - Tylenol PRN, oxy 5mg PRN #Anxiety - Continue home duloxetine - Holding home Xanax #Insomnia - Holding home Ambien CV: #Afib with RVR, acute on chronic - Heparin gtt - Holding home warfarin 2mg and carvedilol - Switch from diltiazem gtt to amio bolus & gtt - CTM coags - Pro-BNP 5830 -> 7985 - Troponin 0.036 -> 0.058 -> 0.110 -> 0.08, stop trending #Bilateral pulmonary emboli R>L - Etiology: Afib vs. Fat emboli from recent L distal femur replacement 05/20 - Bedside TTE: mild R heart strain - F/u LE duplex #Chronic HTN - Continue home HCTZ - Holding home amlodipine, carvedilol, losartan, & Lasix #Peripheral edema NOS, no h/o CHF - Continue home HCTZ - Holding home Lasix #Chronic HLD - Holding home lovastatin due to interaction with amiodarone PULM: #Acute resp insufficiency, 2/2 Afib with RVR and PE - 4L NC, wean O2 as tolerated #AYAD - Uses CPAP at home, currently on hold GI: Diet: CLD Bowel regimen: docusate/senna PRN PUD PPx: none ENDO: #Type 2 DM - ICU MDSSI - Holding home metformin #Hypothyroidism - Continue home levothyroxine 25mcg RENAL: BUN/Cr - 24/0.66 Fluid balance goal: even Maintenance IV fluids: D5LR @25 Electrolyte repletion orders: Will replete per SICU protocol HEME: HH - 8.1/25.6 Plt - 268 #ABLA - Transfuse if Hgb<7.0 ID: WBC - 8.5 Antibiotics: none Cultures: none MSK: #L distal femur fx - WBAT for LLE - Fall precautions - PT recs Intensive Care Unit Standards of Care: Restraints: none DVT prophylaxis: heparin gtt Vascular access: PIV x2 Goals of care: full code Kevin Riley MD Cosigned by Irais Holguin MD at 05/30/2019 8:26 PM CDT documented in this encounter Procedure Notes * Miguel Centeno MD PhD - 05/31/2019 8:03 AM CDTAssociated Order(s): Critical Care Post-Procedure Diagnose(s): Atrial fibrillation with RVR (CMS/HCC) ([facility]) Critical Care Performed by: Miguel Centeno MD PhD Authorized by: Miguel Centeno MD PhD CRITICAL CARE: Team: SICU RED Shift: AM Level of Billing: Critical Care My time spent with this patient was 35 minutes: Critical Provider Statement: I have seen and examined the patient on this day of service. I have reviewed and confirmed the history, physical exam, laboratory and radiologic data as documented in thesigned ICU note. I have reviewed and discussed my treatment plan with the ICU team and other medical/learning consultant staff, making frequent assessments and decisions regarding this patient's complex medical care. Critical Care time was exclusive of time spent performing separately billed procedures, treating other patients, and teaching. This time was in addition to and separate from critical care provided by other practitioners in my group on this day of service. Critical Care was necessary to treat or prevent imminent or life-threatening deterioration of the following conditions: Atrial fibrillation with rapid ventricular rate Acute respiratory insufficiency Acute kidney injury and Acute electrolyte derangement Severe undifferentiated anemia This time was spent by me doing the following: Initiation/active titration of anti-arrhythmic or rate controlling agent Active and frequent reassessment of respiratory status and oxygen requirements Active and frequent monitoring of intake/output and volumen status and Glycemic control I spent time reviewing and interpreting data from bedside monitors, laboratory results, and imagingand I spent time documenting in the medical record Attending Documentation and Treatment Plan: ?? Neurologic - Pt arousable and responsive. Can receive acetaminophen, oxycodone for analgesia. On home duloxetine. ?? Cardiovascular - Remains tachycardic, in atrial fibrillation; on PO metoprolol for rate control, will increase dose. Having some hypertension, will monitor response to diuresis. ?? Respiratory - On supplemental O2 for respiratory insufficiency due to PE's. Used CPAP overnight forOSA. ?? Gastrointestinal - Diet as tolerated. ?? Renal - In negative fluid balance with diuresis. Has mildf RASHAWN with estimated creatinine clearance of 52. Has mild hyponatremia, will follow. ?? Hematologic - Has anemia secondary to chronic illness and prior blood loss. On heparin infusion forPE's, will consider switch to enoxaparin. ?? Endocrine - On home levothyroxine. On sliding scale insulin for glycemic control; has been hyperglycemic, will start Lantus insulin, continue sliding scale insulin. ? Miguel Centeno MD, PhD ?? * Miguel Centeno MD PhD - 05/30/2019 11:36 AM CDTAssociated Order(s): Critical Care Post-Procedure Diagnose(s): Atrial fibrillation with RVR (CMS/HCC) ([facility]) Critical Care Performed by: Miguel Centeno MD PhD Authorized by: Miguel Centeno MD PhD CRITICAL CARE: Team: SICU RED Shift: AM Level of Billing: Critical Care My time spent with this patient was 40 minutes: Critical Provider Statement: I have seen and examined the patient on this day of service. I have reviewed and confirmed the history, physical exam, laboratory and radiologic data as documented in thesigned ICU note. I have reviewed and discussed my treatment plan with the ICU team and other medical/learning consultant staff, making frequent assessments and decisions regarding this patient's complex medical care. Critical Care time was exclusive of time spent performing separately billed procedures, treating other patients, and teaching. This time was in addition to and separate from critical care provided by other practitioners in my group on this day of service. Critical Care was necessary to treat or prevent imminent or life-threatening deterioration of the following conditions: Acute pain/acute postoperative pain Atrial fibrillation with rapid ventricular rate Acute respiratory insufficiency and Pulmonary embolus Acute kidney injury, Acute electrolyte derangement and Hypo- or Hyperglycemia Severe undifferentiated anemia This time was spent by me doing the following: Acute pain control Initiation/active titration of anti-arrhythmic or rate controlling agent Active and frequent reassessment of respiratory status and oxygen requirements Active and frequent monitoring of intake/output and volumen status and Glycemic control Active diuresis Initiation/monitoring/titration of anticoagulants I spent time reviewing and interpreting data from bedside monitors, laboratory results, and imaging, I spent time discussing the management of this critically ill patient with consultants and the medical staff and I spent time documenting in the medical record SICU ATTENDING: Attending Documentation and Treatment Plan: Neurologic - Can receive acetaminophen, oxycodone for analgesia. Pt arousable and responsive. On home duloxetine. Cardiovascular - Remains tachycardic, in atrial fibrillation; on amiodarone infusion and PO metoprolol for rate control. Had been mildly hypotensive, will discontinue HCTZ. Will check CXR to assess for pulmonary edema. Respiratory - On supplemental O2 for respiratory insufficiency due to PE's. Uses CPAP at night for AYAD. Gastrointestinal - Will advance diet as tolerated. Renal - Adequate urinary output, has some evidence of RASHAWN with estimated creatinine clearance of 52. Has mild hyponatremia, will follow. Hematologic - Has anemia secondary to chronic illness and prior blood loss. On heparin infusion forPE's, will consider switch to enoxaparin. Endocrine - On home levothyroxine. On sliding scale insulin for glycemic control; has been hyperglycemic, may need to start long-acting insulin. Miguel Centeno MD, PhD * Irais Holguin MD - 05/29/2019 11:23 PM CDTAssociated Order(s): Critical Care Post-Procedure Diagnose(s): Atrial fibrillation with RVR (CMS/HCC) (HCC) Critical Care Performed by: Irais Holguin MD Authorized by: Irais Holguin MD CRITICAL CARE: Team: SICU RED Shift: PM Level of Billing: Critical Care My time spent with this patient was 40 minutes: Critical Provider Statement: I have seen and examined the patient on this day of service. I have reviewed and confirmed the history, physical exam, laboratory and radiologic data as documented in thesigned ICU note. I have reviewed and discussed my treatment plan with the ICU team and other medical/learning consultant staff, making frequent assessments and decisions regarding this patient's complex medical care. Critical Care time was exclusive of time spent performing separately billed procedures, treating other patients, and teaching. This time was in addition to and separate from critical care provided by other practitioners in my group on this day of service. Critical Care was necessary to treat or prevent imminent or life-threatening deterioration of the following conditions: Acute pain/acute postoperative pain Demand ischemia/elevated troponins and Atrial fibrillation with rapid ventricular rate Thromboembolism/DVT This time was spent by me doing the following: Acute pain control Initiation/active titration of anti-arrhythmic or rate controlling agent Glycemic control Initiation/monitoring/titration of anticoagulants I spent time reviewing and interpreting data from bedside monitors, laboratory results, and imaging, I spent time discussing the management of this critically ill patient with consultants and the medical staff and I spent time documenting in the medical record documented in this encounter Nursing Notes * Miranda Cole RN - 06/05/2019 4:03 PM CDT Patient discharging to [facility] with [facility] attendants. Discharge paperwork includingmeds & follow up appointment reviewed with both the patient and her . Both the patient and her verbalzied their understanding of discharge instructions. Hand off report given to [facility] along with discharge paperwork. * Camden Doherty RN - 05/29/2019 10:57 PM CDT Patient arrived from [facility] per EMS at 2116. Patient arrived A&Ox4, denied pain, andVital signs listed in the Flowsheet. Patient arrived on a Heparin drip going at 11 units/kg/hr and Diltiazem at 10mg/hr, which will be switched to our supply once orders are placed. OR dressing on LLE noted upon assessment. documented in this encounter Miscellaneous Notes * Plan of Care - Miranda Cole RN - 06/05/2019 3:00 PM CDT Goals: Clinical Goals for the Shift: comfort Problem: Lack of Knowledge: Goal: Ability to state ways to decrease the risk of falls will improve Outcome: Adequate for Discharge Problem: Safety: Goal: Will remain free from falls Outcome: Adequate for Discharge Goal: Will remain free from injury from falls Outcome: Adequate for Discharge Goal: Will remain free from falls and injury in home environment Outcome: Adequate for Discharge Problem: Lack of Knowledge: Goal: Ability to develop a pain control plan will improve Outcome: Adequate for Discharge Goal: Ability to identify pain intensity on a pain scale and rate it consistently will improve Outcome: Adequate for Discharge Goal: Ability to notify healthcare provider of pain before it becomes unmanageable or unbearable will improve Outcome: Adequate for Discharge Problem: Medication: Goal: Satisfaction with pain management regimen will improve Outcome: Adequate for Discharge Problem: Activity: Goal: Ability to avoid complications of mobility impairment will improve Outcome: Adequate for Discharge Problem: Lack of Knowledge: Goal: Knowledge of the prescribed therapeutic regimen will improve Outcome: Adequate for Discharge Goal: Ability to demonstrate proper wound care will improve Outcome: Adequate for Discharge Problem: Health Behavior: Goal: Identification of resources available to assist in meeting health care needs will improve Outcome: Adequate for Discharge Problem: Nutritional: Goal: Nutritional status will improve Outcome: Adequate for Discharge Problem: Cardiac: Goal: Knowledge of VTE will improve by discharge Outcome: Adequate for Discharge Problem: Lack of Knowledge: Goal: Knowledge of the prescribed therapeutic regimen will improve Outcome: Adequate for Discharge Problem: Activity: Goal: Ability to ambulate will improve Outcome: Adequate for Discharge Goal: Muscle strength will improve Outcome: Adequate for Discharge Goal: Range of joint motion will improve Outcome: Adequate for Discharge Problem: Safety: Goal: Ability to appropriately use an adaptive device for ambulation will improve Outcome: Adequate for Discharge Goal: Ability to safely and independently change position in bed will improve Outcome: Adequate for Discharge Goal: Ability to safely transfer will improve Outcome: Adequate for Discharge Problem: Activity: Goal: Ability to tolerate increased activity will improve Outcome: Adequate for Discharge Goal: Ability to participate in self-care as condition permits will improve Outcome: Adequate for Discharge Problem: Cardiac: Goal: Ability to maintain an adequate cardiac output will improve Outcome: Adequate for Discharge Goal: Will show no evidence of cardiac arrhythmias Outcome: Adequate for Discharge Goal: Complications related to the disease process, condition or treatment will be avoided or minimized Outcome: Adequate for Discharge Problem: Lack of Knowledge: Goal: Knowledge of the prescribed therapeutic regimen will improve Outcome: Adequate for Discharge Goal: Knowledge of disease or condition will improve Outcome: Adequate for Discharge Goal: Ability to identify and utilize available resources and services will improve Outcome: Adequate for Discharge Problem: Activity: Goal: Mobility will improve Outcome: Adequate for Discharge Problem: Lack of Knowledge: Goal: Understanding of ways to prevent future skin breakdown will improve Outcome: Adequate for Discharge Goal: Ability to identify appropriate dietary choices will improve Outcome: Adequate for Discharge Problem: Nutritional: Goal: Dietary intake will improve Outcome: Adequate for Discharge Goal: Ability to maintain a balanced intake and output will improve Outcome: Adequate for Discharge Problem: Skin Integrity: Goal: Risk for impaired skin integrity will decrease Outcome: Adequate for Discharge Goal: Ability to demonstrate warm and dry skin will improve Outcome: Adequate for Discharge Goal: Circulation will improve to fullest extent possible Outcome: Adequate for Discharge Problem: Health Behavior: Goal: Understanding of discharge needs will improve Outcome: Adequate for Discharge Summary:Discharge instructions reviewed with patient and her . * Plan of Garcia - Katie Terry RN - 06/05/2019 12:00 PM CDT Patient is medically stable for discharge. PT and OT recommending SNF for reahb purposes. Patient/family agree to plan. Social work following for assistance with placement upon discharge per therapies recommendation. See SW follow up note in EPIC for complete discharge details. * Plan of Care - Yolanda Randle LCSW - 06/05/2019 10:12 AM CDT Patient completed [facility] chart review. Patient and stated they wanted to discharge home yesterday. CM spoke with patient at bedside to discuss home health agencies. Patient then stated she is now wanting to discharge to rehab at [facility]. [employer] contacted patient's spouse, Ravi ([phone]). Ravi stated he is agreeable for patient to discharge to [facility]. [employer] stated patient's [employer] authorization is valid through today and patient could discharge today if stable. Ravi stated he would not want patient to discharge today and still had concerns that he wantedto discuss with the physicians. [employer] stated she would update Ravi after she contacted [facility] nolvia and the [facility] team. [employer] contacted Gloria ([phone]) with [facility]. Gloria stated she still has [employer] authorization and a bed available for patient today. Gloria stated she would contact the facility to confirm and then update [facility]DAY today. [employer] contacted Dr. Adkins with [facility] team. Dr. Adkins stated patient is stable and agreed to contact patient's spouse, Ravi, to discuss concerns. Anticipate patient will discharge today to [facility] pending confirmation of bed and insurance authorization. Yolanda Randle LCSW, ASSURANCE ANALYST Night Time Babysitter [phone] * Plan of Care - Kristofer Quiñonez RN - 06/05/2019 4:22 AM CDT Problem: Lack of Knowledge: Goal: Ability to state ways to decrease the risk of falls will improve Outcome: Progressing Problem: Safety: Goal: Will remain free from falls Outcome: Progressing Goal: Will remain free from injury from falls Outcome: Progressing Goal: Will remain free from falls and injury in home environment Outcome: Progressing Problem: Lack of Knowledge: Goal: Ability to develop a pain control plan will improve Outcome: Progressing Goal: Ability to identify pain intensity on a pain scale and rate it consistently will improve Outcome: Progressing Goal: Ability to notify healthcare provider of pain before it becomes unmanageable or unbearable will improve Outcome: Progressing Problem: Medication: Goal: Satisfaction with pain management regimen will improve Outcome: Progressing Problem: Activity: Goal: Ability to avoid complications of mobility impairment will improve Outcome: Progressing Problem: Lack of Knowledge: Goal: Knowledge of the prescribed therapeutic regimen will improve Outcome: Progressing Goal: Ability to demonstrate proper wound care will improve Outcome: Progressing Problem: Health Behavior: Goal: Identification of resources available to assist in meeting health care needs will improve Outcome: Progressing Problem: Nutritional: Goal: Nutritional status will improve Outcome: Progressing Problem: Cardiac: Goal: Knowledge of VTE will improve by discharge Outcome: Progressing Problem: Lack of Knowledge: Goal: Knowledge of the prescribed therapeutic regimen will improve Outcome: Progressing Problem: Activity: Goal: Range of joint motion will improve Outcome: Progressing Problem: Safety: Goal: Ability to safely and independently change position in bed will improve Outcome: Progressing Goal: Ability to safely transfer will improve Outcome: Progressing Problem: Activity: Goal: Ability to tolerate increased activity will improve Outcome: Progressing Goal: Ability to participate in self-care as condition permits will improve Outcome: Progressing Problem: Cardiac: Goal: Ability to maintain an adequate cardiac output will improve Outcome: Progressing Goal: Will show no evidence of cardiac arrhythmias Outcome: Progressing Goal: Complications related to the disease process, condition or treatment will be avoided or minimized Outcome: Progressing Problem: Lack of Knowledge: Goal: Knowledge of the prescribed therapeutic regimen will improve Outcome: Progressing Goal: Knowledge of disease or condition will improve Outcome: Progressing Goal: Ability to identify and utilize available resources and services will improve Outcome: Progressing Problem: Lack of [...] to fullest extent possible Outcome: Progressing Problem: Health Behavior: Goal: Understanding of discharge needs will improve Outcome: Progressing Problem: Activity: Goal: Ability to ambulate will improve Outcome: Not Progressing Goal: Muscle strength will improve Outcome: Not Progressing Problem: Safety: Goal: Ability to appropriately use an adaptive device for ambulation will improve Outcome: Not Progressing Problem: Activity: Goal: Mobility will improve Outcome: Not Progressing Goals: Clinical Goals for the Shift: Patient will report adequate pain relief Summary: VSS. SOB on exertion. Report 5/10 leg pain, partial relief with tylenol and oxycodone PRN.Kept comfortable and needs attended. Continuity of nursing care. * Plan of Care - Yessica Browning RRT - 06/05/2019 3:03 AM CDT Pt stable on home NPPV unit, RT will continue to monitor pt. * Plan of Care - Miranda Cole RN - 06/04/2019 3:14 PM CDT Goals: Clinical Goals for the Shift: comfort and to sit up in the chair for awhile. Problem: Lack of Knowledge: Goal: Ability to state ways to decrease the risk of falls will improve Outcome: Progressing Problem: Safety: Goal: Will remain free from falls Outcome: Progressing Goal: Will remain free from injury from falls Outcome: Progressing Goal: Will remain free from falls and injury in home environment Outcome: Progressing Problem: Lack of Knowledge: Goal: Ability to develop a pain control plan will improve Outcome: Progressing Goal: Ability to identify pain intensity on a pain scale and rate it consistently will improve Outcome: Progressing Goal: Ability to notify healthcare provider of pain before it becomes unmanageable or unbearable will improve Outcome: Progressing Problem: Medication: Goal: Satisfaction with pain management regimen will improve Outcome: Progressing Problem: Activity: Goal: Ability to avoid complications of mobility impairment will improve Outcome: Progressing Problem: Lack of Knowledge: Goal: Knowledge of the prescribed therapeutic regimen will improve Outcome: Progressing Goal: Ability to demonstrate proper wound care will improve Outcome: Progressing Problem: Health Behavior: Goal: Identification of resources available to assist in meeting health care needs will improve Outcome: Progressing Problem: Nutritional: Goal: Nutritional status will improve Outcome: Progressing Problem: Cardiac: Goal: Knowledge of VTE will improve by discharge Outcome: Progressing Problem: Lack of Knowledge: Goal: Knowledge of the prescribed therapeutic regimen will improve Outcome: Progressing Problem: Activity: Goal: Ability to ambulate will improve Outcome: Progressing Goal: Muscle strength will improve Outcome: Progressing Goal: Range of joint motion will improve Outcome: Progressing Problem: Safety: Goal: Ability to appropriately use an adaptive device for ambulation will improve Outcome: Progressing Goal: Ability to safely and independently change position in bed will improve Outcome: Progressing Goal: Ability to safely transfer will improve Outcome: Progressing Problem: Activity: Goal: Ability to tolerate increased activity will improve Outcome: Progressing Goal: Ability to participate in self-care as condition permits will improve Outcome: Progressing Problem: Cardiac: Goal: Ability to maintain an adequate cardiac output will improve Outcome: Progressing Goal: Will show no evidence of cardiac arrhythmias Outcome: Progressing Goal: Complications related to the disease process, condition or treatment will be avoided or minimized Outcome: Progressing Problem: Lack of Knowledge: Goal: Knowledge of the prescribed therapeutic regimen will improve Outcome: Progressing Goal: Knowledge of disease or condition will improve Outcome: Progressing Goal: Ability to identify and utilize available resources and services will improve Outcome: Progressing Problem: Activity: Goal: [...] to fullest extent possible Outcome: Progressing Problem: Health Behavior: Goal: Understanding of discharge needs will improve Outcome: Progressing Summary: Patient worked with PT & OT today. PRN APAP for pain. [facility]. States that her pain is better today. * Plan of Care - Anisha Cruz, PT - 06/04/2019 2:45 PM CDT Problem: Mobility Goal: STG - Patient will ambulate Description: 100 feet with least restrictive device supervision Outcome: Progressing Problem: Transfers Goal: STG - Patient will transfer sit to and from stand Description: Supervision Outcome: Progressing Problem: Transfers Goal: STG - Patient to transfer to and from sit to supine Description: Supervision Outcome: Not Progressing * Plan of Care - Alisa Walker RN - 06/04/2019 10:00 AM CDT CM spoke with patient and patient's nurse regarding discharge plan and home healthcare. Pt choice list of home health agencies provided. Pt stated that she would like to go to [facility] becauseher cannot take care of her at home. Per RN pt has been requiring 2 person assist with a walker/gait belt. Pt stated that her was visiting facilities, he was not at the bedside. No referrals made at this time. CM will continue to follow and set up home health if indicated. * Plan of Care - Paulina Malcolm LCSW - 06/04/2019 9:00 AM CDT Per collaboration with MD Dr. Medley, pt has elected to discharge home. SW alerted [facility] that they may have discharge needs and [facility] that there was a change in the discharge plan. No further SW needs at this time. Paulina Malcolm [facility] Night Time Babysitter [phone] * Plan of Care - Alf Crump RRT - 06/04/2019 4:16 AM CDT Pt wore her home machine all night. * Plan of Care - Jermaine Cross RN - 06/04/2019 3:09 AM CDT Goals: Clinical Goals for the Shift: Patient will have a restful night with adequate pain control, decreased SOB, and stable VS Summary: Patient has reported adequate pain control with improved SOB, VSS overnight. PTT continuesto be therapeutic. Problem: Lack of Knowledge: Goal: Ability to state ways to decrease the risk of falls will improve Outcome: Progressing Problem: Safety: Goal: Will remain free from falls Outcome: Progressing Goal: Will remain free from injury from falls Outcome: Progressing Goal: Will remain free from falls and injury in home environment Outcome: Progressing Problem: Lack of Knowledge: Goal: Ability to develop a pain control plan will improve Outcome: Progressing Goal: Ability to identify pain intensity on a pain scale and rate it consistently will improve Outcome: Progressing Goal: Ability to notify healthcare provider of pain before it becomes unmanageable or unbearable will improve Outcome: Progressing Problem: Medication: Goal: Satisfaction with pain management regimen will improve Outcome: Progressing Problem: Activity: Goal: Ability to avoid complications of mobility impairment will improve Outcome: Progressing Problem: Lack of Knowledge: Goal: Knowledge of the prescribed therapeutic regimen will improve Outcome: Progressing Goal: Ability to demonstrate proper wound care will improve Outcome: Progressing Problem: Health Behavior: Goal: Identification of resources available to assist in meeting health care needs will improve Outcome: Progressing Problem: Nutritional: Goal: Nutritional status will improve Outcome: Progressing Problem: Cardiac: Goal: Knowledge of VTE will improve by discharge Outcome: Progressing Problem: Lack of Knowledge: Goal: Knowledge of the prescribed therapeutic regimen will improve Outcome: Progressing Problem: Activity: Goal: Ability to ambulate will improve Outcome: Progressing Goal: Muscle strength will improve Outcome: Progressing Goal: Range of joint motion will improve Outcome: Progressing Problem: Safety: Goal: Ability to appropriately use an adaptive device for ambulation will improve Outcome: Progressing Goal: Ability to safely and independently change position in bed will improve Outcome: Progressing Goal: Ability to safely transfer will improve Outcome: Progressing Problem: Activity: Goal: Ability to tolerate increased activity will improve Outcome: Progressing Goal: Ability to participate in self-care as condition permits will improve Outcome: Progressing Problem: Cardiac: Goal: Ability to maintain an adequate cardiac output will improve Outcome: Progressing Goal: Will show no evidence of cardiac arrhythmias Outcome: Progressing Goal: Complications related to the disease process, condition or treatment will be avoided or minimized Outcome: Progressing Problem: Lack of Knowledge: Goal: Knowledge of the prescribed therapeutic regimen will improve Outcome: Progressing Goal: Knowledge of disease or condition will improve Outcome: Progressing Goal: Ability to identify and utilize available resources and services will improve Outcome: Progressing Problem: Activity: Goal: [...] to fullest extent possible Outcome: Progressing Problem: Health Behavior: Goal: Understanding of discharge needs will improve Outcome: Progressing * Plan of Care - Ryann Marcelino MSW - 06/03/2019 1:51 PM CDT Per DCAM, patient is not medically stable for discharge. INR not therapeutic. Patient has been accepted to [facility]. [employer] insurance authorization received today and valid through Thursday (06/05/19). Authorization number: [id number]. Gloria from [facility] ([phone]) reported they will have an open bed for patient tomorrow (06/03). She reported she will be working over the weekend and can be contacted when patient is ready for discharge. Social Work to follow. Ryann Marcelino LMSW [phone] * Plan of Care - Gail Benavides RN - 06/03/2019 1:16 PM CDT Report per DCAM:?? Patients INR Still not therapeutic. Possible discharge over weekend. Impression: 79 y.o.??female??presented to the ICU with chief complaint of??chest pain and shortnessof breath Problem/Goals:??Establish a safe discharge plan Referrals: SW following for possible placement- Support:?? Transportation:??to be arranged prior to discharge F/U Appt:??to be arranged prior to discharge e ADD?06/03 Case Management will follow for planning and referrals as needed. For any questions, please call ariana ?? For emergency??needs after 4:30 pm, please call the privacy specialist . For weekend/holiday needs from 8:00a.m. -??4:30p.m., please call the [facility]end [employer] Waistband Setter . * Plan of Care - Nancy Christina RN - 06/03/2019 9:00 AM CDT Problem: Lack of Knowledge: Goal: Ability to state ways to decrease the risk of falls will improve Outcome: Progressing Problem: Safety: Goal: Will remain free from falls Outcome: Progressing Goal: Will remain free from injury from falls Outcome: Progressing Goal: Will remain free from falls and injury in home environment Outcome: Progressing Problem: Lack of Knowledge: Goal: Ability to develop a pain control plan will improve Outcome: Progressing Goal: Ability to identify pain intensity on a pain scale and rate it consistently will improve Outcome: Progressing Goal: Ability to notify healthcare provider of pain before it becomes unmanageable or unbearable will improve Outcome: Progressing Problem: Medication: Goal: Satisfaction with pain management regimen will improve Outcome: Progressing Problem: Activity: Goal: Ability to avoid complications of mobility impairment will improve Outcome: Progressing Problem: Lack of Knowledge: Goal: Knowledge of the prescribed therapeutic regimen will improve Outcome: Progressing Goal: Ability to demonstrate proper wound care will improve Outcome: Progressing Problem: Health Behavior: Goal: Identification of resources available to assist in meeting health care needs will improve Outcome: Progressing Problem: Nutritional: Goal: Nutritional status will improve Outcome: Progressing Problem: Cardiac: Goal: Knowledge of VTE will improve by discharge Outcome: Progressing Problem: Lack of Knowledge: Goal: Knowledge of the prescribed therapeutic regimen will improve Outcome: Progressing Problem: Activity: Goal: Ability to ambulate will improve Outcome: Progressing Goal: Muscle strength will improve Outcome: Progressing Goal: Range of joint motion will improve Outcome: Progressing Problem: Safety: Goal: Ability to appropriately use an adaptive device for ambulation will improve Outcome: Progressing Goal: Ability to safely and independently change position in bed will improve Outcome: Progressing Goal: Ability to safely transfer will improve Outcome: Progressing Problem: Activity: Goal: Ability to tolerate increased activity will improve Outcome: Progressing Goal: Ability to participate in self-care as condition permits will improve Outcome: Progressing Problem: Cardiac: Goal: Ability to maintain an adequate cardiac output will improve Outcome: Progressing Goal: Will show no evidence of cardiac arrhythmias Outcome: Progressing Goal: Complications related to the disease process, condition or treatment will be avoided or minimized Outcome: Progressing Problem: Lack of Knowledge: Goal: Knowledge of the prescribed therapeutic regimen will improve Outcome: Progressing Goal: Knowledge of disease or condition will improve Outcome: Progressing Goal: Ability to identify and utilize available resources and services will improve Outcome: Progressing Problem: Activity: Goal: [...] to fullest extent possible Outcome: Progressing Problem: Health Behavior: Goal: Understanding of discharge needs will improve Outcome: Progressing Goals: Clinical Goals for the Shift: Pt will work with therapy and sit up in chair. Summary: Therapy did not work with patient, but patient still sat up in chair for large portion of shift. Pt was heavy assist x2 with fait belt. Woundcare was performed. Pt did not start experiencingpain until the end of shift. Tylenol and oxycodone were given for pain control. Patient currently resting comfortably back in bed. * Plan of Care - Jermaine Cross RN - 06/03/2019 4:21 AM CDT Goals: Clinical Goals for the Shift: Pt will report improved SOB, ptt will be therapeutic Summary: Patient reporting occasional SOB, SpO2 remains stable on room air, ptt therapeutic tonight. Patient has had restful night. Problem: Lack of Knowledge: Goal: Ability to state ways to decrease the risk of falls will improve Outcome: Progressing Problem: Safety: Goal: Will remain free from falls Outcome: Progressing Goal: Will remain free from injury from falls Outcome: Progressing Goal: Will remain free from falls and injury in home environment Outcome: Progressing Problem: Lack of Knowledge: Goal: Ability to develop a pain control plan will improve Outcome: Progressing Goal: Ability to identify pain intensity on a pain scale and rate it consistently will improve Outcome: Progressing Goal: Ability to notify healthcare provider of pain before it becomes unmanageable or unbearable will improve Outcome: Progressing Problem: Medication: Goal: Satisfaction with pain management regimen will improve Outcome: Progressing Problem: Activity: Goal: Ability to avoid complications of mobility impairment will improve Outcome: Progressing Problem: Lack of Knowledge: Goal: Knowledge of the prescribed therapeutic regimen will improve Outcome: Progressing Goal: Ability to demonstrate proper wound care will improve Outcome: Progressing Problem: Health Behavior: Goal: Identification of resources available to assist in meeting health care needs will improve Outcome: Progressing Problem: Nutritional: Goal: Nutritional status will improve Outcome: Progressing Problem: Cardiac: Goal: Knowledge of VTE will improve by discharge Outcome: Progressing Problem: Lack of Knowledge: Goal: Knowledge of the prescribed therapeutic regimen will improve Outcome: Progressing Problem: Activity: Goal: Ability to ambulate will improve Outcome: Progressing Goal: Muscle strength will improve Outcome: Progressing Goal: Range of joint motion will improve Outcome: Progressing Problem: Safety: Goal: Ability to appropriately use an adaptive device for ambulation will improve Outcome: Progressing Goal: Ability to safely and independently change position in bed will improve Outcome: Progressing Goal: Ability to safely transfer will improve Outcome: Progressing Problem: Activity: Goal: Ability to tolerate increased activity will improve Outcome: Progressing Goal: Ability to participate in self-care as condition permits will improve Outcome: Progressing Problem: Cardiac: Goal: Ability to maintain an adequate cardiac output will improve Outcome: Progressing Goal: Will show no evidence of cardiac arrhythmias Outcome: Progressing Goal: Complications related to the disease process, condition or treatment will be avoided or minimized Outcome: Progressing Problem: Lack of Knowledge: Goal: Knowledge of the prescribed therapeutic regimen will improve Outcome: Progressing Goal: Knowledge of disease or condition will improve Outcome: Progressing Goal: Ability to identify and utilize available resources and services will improve Outcome: Progressing Problem: Activity: Goal: [...] to fullest extent possible Outcome: Progressing Problem: Health Behavior: Goal: Understanding of discharge needs will improve Outcome: Progressing * Plan of Care - Alf Crump RRT - 06/03/2019 3:51 AM CDT Pt wore her home machine all night. * Plan of Care - Ryann Marcelino MSW - 06/02/2019 4:32 PM CDT Night Time Babysitter spoke with Gloria from [facility] ([phone]). She reported they were able toaccept patient but would not have a bed available until Thursday (06/04/19). Night Time Babysitter [facility]. Social Work to follow. Ryann Marcelino LMSW [phone] * Plan of Care - Lucila Pena RN - 06/02/2019 4:17 PM CDT Problem: Lack of Knowledge: Goal: Ability to state ways to decrease the risk of falls will improve Outcome: Progressing Problem: Safety: Goal: Will remain free from falls Outcome: Progressing Goal: Will remain free from injury from falls Outcome: Progressing Goal: Will remain free from falls and injury in home environment Outcome: Progressing Problem: Lack of Knowledge: Goal: Ability to develop a pain control plan will improve Outcome: Progressing Goal: Ability to identify pain intensity on a pain scale and rate it consistently will improve Outcome: Progressing Goal: Ability to notify healthcare provider of pain before it becomes unmanageable or unbearable will improve Outcome: Progressing Problem: Medication: Goal: Satisfaction with pain management regimen will improve Outcome: Progressing Problem: Activity: Goal: Ability to avoid complications of mobility impairment will improve Outcome: Progressing Problem: Lack of Knowledge: Goal: Knowledge of the prescribed therapeutic regimen will improve Outcome: Progressing Goal: Ability to demonstrate proper wound care will improve Outcome: Progressing Problem: Health Behavior: Goal: Identification of resources available to assist in meeting health care needs will improve Outcome: Progressing Problem: Nutritional: Goal: Nutritional status will improve Outcome: Progressing Problem: Cardiac: Goal: Knowledge of VTE will improve by discharge Outcome: Progressing Problem: Lack of Knowledge: Goal: Knowledge of the prescribed therapeutic regimen will improve Outcome: Progressing Problem: Activity: Goal: Ability to ambulate will improve Outcome: Progressing Goal: Muscle strength will improve Outcome: Progressing Goal: Range of joint motion will improve Outcome: Progressing Problem: Safety: Goal: Ability to appropriately use an adaptive device for ambulation will improve Outcome: Progressing Goal: Ability to safely and independently change position in bed will improve Outcome: Progressing Goal: Ability to safely transfer will improve Outcome: Progressing Problem: Activity: Goal: Ability to tolerate increased activity will improve Outcome: Progressing Goal: Ability to participate in self-care as condition permits will improve Outcome: Progressing Problem: Cardiac: Goal: Ability to maintain an adequate cardiac output will improve Outcome: Progressing Goal: Will show no evidence of cardiac arrhythmias Outcome: Progressing Goal: Complications related to the disease process, condition or treatment will be avoided or minimized Outcome: Progressing Problem: Lack of Knowledge: Goal: Knowledge of the prescribed therapeutic regimen will improve Outcome: Progressing Goal: Knowledge of disease or condition will improve Outcome: Progressing Goal: Ability to identify and utilize available resources and services will improve Outcome: Progressing Problem: Activity: Goal: [...] to fullest extent possible Outcome: Progressing Problem: Health Behavior: Goal: Understanding of discharge needs will improve Outcome: Progressing Goals: Clinical Goals for the Shift: Remain free from SOB Summary: Pt gets SOB with little exertion. Up to chair with PT. * Plan of Care - Maegan Emery DPT - 06/02/2019 2:12 PM CDT Problem: Mobility Goal: STG - Patient will ambulate Description: 50 ft with LRD with min A Outcome: Progressing Problem: Transfers Goal: STG - Patient will transfer sit to and from stand Description: Min Outcome: Progressing Goal: STG - Patient to transfer to and from sit to supine Description: SPV with HOB flat Outcome: Progressing * Plan of Care - Ryann Marcelino MSW - 06/02/2019 12:41 PM CDT Night Time Babysitter met with patient and her at bedside to discuss discharge planning. Patient's reported he would prefer her to discharge home but patient wanted to go to [facility] (SNF) at discharge. They reported they wanted to see if [facility] would be able to accept her and if not then pursue home health. Night Time Babysitter sent updates to [facility] in [employer]. Social Work to follow. ADD: 06/03/19 Ryann Marcelino LMSW [phone] * ECIN Note - Ryann Marcelino MSW - 06/02/2019 10:43 AM CDT Patient Information: Wound Info Only Patient Lines/Drains/Airways Status Active Wound / Pressure ulcer / Roy / Negative Pressure Wound None , Vitals Info Only Vital Signs 05/31 0700 - 06/01 0659 06/01 0700 - 06/01 1043 Most Recent Temp (??C) 36.6 - 37.6 37.5 (99.5) Pulse 60 - 94 92 92 Resp - 18 SpO2 (%) 93 - 97 94 94 BP 113/76 - 139/96 131/99 131/99 , Oxygen Info Only Default Flowsheet Data (most recent) Endurance Tests No documentation. Default Flowsheet Data (last 48 hours) Oxygen Row Name 06/02/19 0930 06/02/19 0306 06/01/19200406/01/19 1550 06/01/19 1000 Oxygen Therapy/Pulse Ox O2 Therapy None (Room air) -- None (Room air) -- -- SpO2 94 % 95 % 94 % 94 % 93 % Patient Activity -- -- At rest -- -- Row Name 06/01/19 0700 06/01/19 0450 05/31/19 1945 05/31/19 1840 05/31/19 1811 Oxygen Therapy/Pulse Ox O2 Therapy -- None (Room air) None (Room air) None (Room air) -- SpO2 97 % 97 % 99 % 95 % 96 % Row Name 05/31/19 1800 05/31/19 1749 05/31/19 1700 05/31/19 1600 05/31/19 1500 Oxygen Therapy/Pulse Ox O2 Therapy None (Room air) -- None (Room air) None (Room air) None (Room air) SpO2 95 % 96 % 94 % 95 % 97 % Patient Activity At rest -- At rest At rest At rest Row Name 05/31/19 1424 05/31/19 1400 05/31/19 1355 05/31/19 1300 05/31/19 1200 Oxygen Therapy/Pulse Ox O2 Therapy -- Supplemental oxygen -- Supplemental oxygen Supplemental oxygen O2 Del Method -- Nasal cannula -- Nasal cannula Nasal cannula O2 Flow Rate (L/min) -- 1 L/min -- 1 L/min 1 L/min SpO2 95 % 94 % 92 % 94 % 93 % Patient Activity -- At rest -- At rest At rest Row Name 05/31/19 1100 Oxygen Therapy/Pulse Ox O2 Therapy Supplemental oxygen O2 Del Method Nasal cannula O2 Flow Rate (L/min) 1 L/min SpO2 93 % Patient Activity At rest * ECIN Note - Ryann Marcelino MSW - 06/02/2019 10:43 AM CDT Patient Information: OT Eval and Treat Last 72 Hours OT Evaluation Row Name 05/31/19 1354 Chart Reviewed Yes -TP Session Type Evaluation -TP OT Received On 05/31/19 -TP Safe Environment Arm Band Checked;Call Light within Reach;Notified RN;Patient found sitting in Chair;Overbed Table within Reach -TP Subjective Agreeable to Therapy -TP Family/Caregiver Present No -TP Precautions Fall risk -TP Weight Bearing Restrictions Yes -TP LLE Weight Bearing WBAT -TP Type of Home House -TP Home Layout One level -TP Home Access Stairs to enter without rails -TP Entrance Stairs-Rails None -TP Entrance Stairs-Number of Steps 1 -TP Home Mobility Equipment Wheeled walker;Wheelchair-manual;Single point cane -TP Additional Comments Patient denies use of mobility device at baseline -TP Level of [place] Independent with ADLs;Independent functional transfers;Independent with ambulation;Independent with homemaking with ambulation -TP Lives With Spouse -TP Receives Help From 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 -TP Driving Yes -TP ADL Assistance Independent -TP Instrumental ADL (IADL) Assistance Independent -TP Fall within the last 6 months Yes -TP Fall within the last 6 months comment Patient reports one fall 2/2 missed step resulting in femur fx leading to this admission -TP Grooming: Where assessed Chair -TP Grooming: Level of assistance Moderate Assist Supervision task, NT standing -TP Grooming: Assistance with Increased time to complete;Safety setup of ADL items, stands at baseline -TP LE Dressing: Where assessed Chair -TP LE Dressing: Level of assistance Maximum Assist Max A task, NT standing -TP LE Dressing: Assistance with Supervision/safety;Increased time to complete;Don/doff R sock;Don/doffL sock;Thread RLE into pants;Thread LLE into pants;Thread LLE into underwear;Thread RLE into underwear;Pull up over hips;Fasteners setup of ADL items -TP Toilet Transfer From -- chair -TP Toilet Transfer Type To -TP Toilet Transfer to Standard bedside commode simulated with chair -TP Toilet Transfer Technique -- sit>stand only for safety -TP Toilet Transfer: Equipment Hand hold -TP Toilet Transfers Moderate assistance -TP Toilet Transfers Comments assist for force production, maintaining balance, and controlled descent.Verbal cues for positioning of hands and feet to assist with transfer. -TP Pain Assessment 0-10 -TP Pain Score 3 -TP Pain Location Leg -TP Pain Orientation Left -TP Overall Cognitive Status Impaired -TP Arousal/Alertness Alert -TP Attention Span Appears intact -TP Memory Decreased short term memory -TP Current communication Appears Intact -TP Orientation Oriented X4 (person, place, time, situation) -TP Following Commands Follows all commands and directions without difficulty -TP Safety Judgment Good awareness of safety precautions -TP Awareness of Errors Assistance required to identify errors made;Assistance required to correct errors made -TP Insight Decreased awareness of deficits -TP Problem Solving Assistance required to implement solutions;Assistance required to generate solutions;Assistance required to identify errors made -TP Compliance/Behavior Easy to engage -TP Perseveration Not present -TP Light Touch WFL -TP Serial Opposition WFL -TP Balance Yes -TP Static Sitting-Balance Support Bilateral upper extremity supported;Feet supported -TP Static Sitting-Sitting Surface Chair -TP Static Sitting-Level of Assistance Close supervision -TP Static Sitting-Comment/# of Minutes sitting unsupported at edge of chair -TP Static Standing-Balance Support Bilateral upper extremity supported on therapist's forearms -TP Static Standing-Standing Surface Floor -TP Static Standing-Level of Assistance Minimum assistance -TP Static Standing-Comment/# of Minutes assist for steadying and force production -TP Bed Mobility No up in chair -TP Transfer Yes -TP Transfer From 1 Sit -TP Transfer Type 1 To and from -TP Transfer to 1 Stand -TP Technique 1 Sit to stand;Stand to sit -TP Transfer Device 1 Hand held assist -TP Transfer Level of Assistance 1 Moderate Assist -TP Trials/Comments 1 assist for force production, maintaining balance, and controlled descent. Verbal cues for positioning of hands and feet to assist with transfer. -TP RUE Assessment WFL -TP LUE Assessment WFL -TP Comments Patient at inpatient rehab prior to this admission; recommend return to rehab. -TP Problem List Decreased endurance;Decreased balance;Decreased functional mobility;Decreased ADL independence;Decreased IADL independence -TP Barriers to Discharge Current Mobility Status -TP Plan Plan of care initiated;If this is the last note, consider this the discharge summary -TP OT Recommendation Inpatient Rehab Facility -TP OT Frequency 3-5x/wk -TP Treatment/Interventions ADL/IADL retraining;Balance Training;Bed mobility;Endurance training;Functional activity;Functional mobility training;Functional transfer training;Strengthening;Therapeutic act ivity;Transfer training;Therapeutic exercise -TP OT - Next Appointment 06/02/19 -TP OT - OK to Discharge No -TP OT Evaluation Complete Yes -TP User Montgomery (r) = Recorded By, (t) = Taken By, (c) = Cosigned By Initials Name Effective Dates TP Terrence Jaramillo, OT 05/18/19 - OT Treatment No documentation. OT Notes (Notes from 05/31/19 through 06/02/19) No notes of this type exist for this encounter. , PT Eval and Treat Last 72 Hours PT Evaluation Row Name 05/30/19 0890 Chart Reviewed Yes -MH (r) JT (c) Session Type Evaluation -MH (r) JT (c) Safe Environment Arm Band Checked;Notified RN;Patient found in Supine -MH (r) JT (c) Subjective Agreeable to Therapy -MH (r) JT (c) Subjective Comment Pt is willing to do PT but not feeling well, nervous about getting up -MH (r) JT(c) Family/Caregiver Present Yes present for second portion of visit -MH (r) JT (c) Physical Therapy-Patient Goal To get more mobile -MH (r) JT (c) Precautions Fall risk;AYAD -MH (r) JT (c) Weight Bearing Restrictions Yes -MH (r) JT (c) LLE Weight Bearing WBAT -MH (r) JT (c) Type of Home House -MH (r) JT (c) Home Layout One level -MH (r) JT (c) Home Access Stairs to enter without rails -MH (r) JT (c) Entrance Stairs-Rails None -MH (r) JT (c) Entrance Stairs-Number of Steps 2 -MH (r) JT (c) Home Mobility Equipment None -MH (r) JT (c) Level of [place] Independent with ADLs;Independent with ambulation -MH (r) JT (c) Lives With Spouse -MH (r) JT (c) Vocational/Occupation Retired -MH (r) JT (c) Fall within the last 6 months Yes -MH (r) JT (c) Fall within the last 6 months comment Single fall leading tor recent admission and L femur fracture, occurred when she was carrying something down stairs and she missed a step -MH (r) JT (c) Prior Function Comments PLOF of prior to recent fall resulting in L femur fracture -MH (r) JT (c) Pain Assessment 0-10 -MH (r) JT (c) Pain Score 0 - No pain -MH (r) JT (c) Arousal/Alertness Appropriate responses to stimuli -MH (r) JT (c) Orientation Oriented X4 (person, place, time, situation) -MH (r) JT (c) Following Commands Follows all commands and directions without difficulty -MH (r) JT (c) Endurance Deficit Yes -MH (r) JT (c) Endurance Deficit Description Dyspnea on exertion following supine > sit transition limiting further mobility -MH (r) JT (c) Balance Yes -MH (r) JT (c) Static Sitting-Balance Support Bilateral upper extremity supported;Feet supported -MH (r) JT (c) Static Sitting-Sitting Surface Bed -MH (r) JT (c) Static Sitting-Level of Assistance Contact guard -MH (r) JT (c) ICU Mobility Scale 2 -MH (r) JT (c) Rolling 0 -MH (r) JT (c) Supine to Sit 3 -MH (r) JT (c) Sitting 5 -MH (r) JT (c) Sit to Stand 0 -MH (r) JT (c) Ambulation or Wheelchair Mobility? Ambulation -MH (r) JT (c) Ambulation 0 -MH (r) JT (c) Bed Mobility Yes -MH (r) JT (c) Bed Mobility From 1 Supine -MH (r) JT (c) Bed Mobility Type 1 To -MH (r) JT (c) Bed Mobility to 1 Edge of bed -MH (r) JT (c) Level of Assistance 1 Moderate Assist -MH (r) JT (c) Bed Mobility Comments 1 ModA for trunk elevation -MH (r) JT (c) Transfer Yes -MH (r) JT (c) Transfer From 1 Bed -MH (r) JT (c) Transfer Type 1 To -MH (r) JT (c) Transfer to 1 Chair with arms -MH (r) JT (c) Technique 1 To right -MH (r) JT (c) Transfer Device 1 Mechanical device -MH (r) JT (c) Transfer Level of Assistance 1 Dependent -MH (r) JT (c) Trials/Comments 1 Based on pt's elevated dyspnea with supine>sit transition, deferred further mobility at this time -MH (r) JT (c) Ambulation No -MH (r) JT (c) Stairs No -MH (r) JT (c) RLE Assessment X -MH (r) JT (c) RLE Overall Strength Within Functional Limits Full heel slide AROM, able to perform quad set -MH (r) JT (c) R Ankle Dorsiflexion 5/5 -MH (r) JT (c) R Ankle Plantar Flexion 5/5 -MH (r) JT (c) LLE Assessment X -MH (r) JT (c) LLE Overall Strength Deficits;Due to pain Unable perform full AROM heel slide, quad set -MH (r) JT (c) L Knee Extension 3-/5 Difficulty with quad set -MH (r) JT (c) L Ankle Dorsiflexion 5/5 -MH (r) JT (c) L Ankle Plantar Flexion 5/5 -MH (r) JT (c) PT Treatment/Exercise Comments Ankle pumps x10, quad sets x10 -MH (r) JT (c) Other PT Comments Dyspnes at rest 10, with supine>sit 8-11/23. Slow to resolve. Stable vitals, but further mobility deferred. -MH (r) JT (c) How much difficulty does the patient have: Turning over in bed 2 -MH (r) JT (c) How much difficulty does the patient currently have: Sitting down and standing up from a chair witharms? 2 -MH (r) JT (c) How much difficulty does the patient have: Moving from lying on back to sitting on the side of the bed? 2 -MH (r) JT (c) How much difficulty does the patient have: Moving to and from a bed to a chair including wheelchair? 2 -MH (r) JT (c) How much help does the patient currently need: Walk in hospital room? 2 -MH (r) JT (c) How much help from another person does the patient currently need: Climbing 3-5 steps with a railing? 1 -MH (r) JT (c) Total Score (range 6-24) 11 - Score Interpretation 30.25 - (r) JT (c) Prognosis Good - (r) JT (c) Problem List Decreased strength;Decreased endurance;Impaired balance;Decreased mobility;Pain - (r) JT (c) Problem List Comments Patient with diagnosis of bilateral PE's presents with deficits in bed mobility, transfers, and ambulation due to impairments in strength, activity tolerance, and dyspnea on exertion. These deficits prevent full participation in the following activity(s): independent householdand community mobility - (r) JT (c) Barriers to Discharge Current Mobility Status - (r) JT (c) Plan Plan of care initiated;If this is the last note, consider this the discharge summary - (r) JT (c) PT Recommendation/Plan Long-Term Facility - (r) JT (c) PT Frequency 3-5x/wk - (r) JT (c) Treatment/Interventions Balance Training;Bed mobility;Gait training;Endurance training;Strengthening;Therapeutic exercise;Transfer training - (r) JT (c) PT Equipment Recommended None TBD at next level of care - (r) JT (c) PT Evaluation Complete Yes - (r) JT (c) User Montgomery (r) = Recorded By, (t) = Taken By, (c) = Cosigned By Initials Name Effective Dates Nadiya Taylor 03/23/19 - JT Val Warner, PT 12/06/18 - PT TREATMENT (last 168 hours) PT Treatment Row Name 05/31/19 1009 PT Last Visit Session Type Treatment -MM Safe Environment Notified RN;Patient found in Supine;Arm Band Checked;Call Light within Reach;Overbed Table within Reach Pt left sitting in chair; in room -MM Subjective Agreeable to Therapy -MM Family/Caregiver Present Yes in room -MM Precautions Precautions Fall risk;AYAD -MM Weight Bearing Restrictions Yes -MM LLE Weight Bearing WBAT -MM Precaution Comments Pt verbally educated on precautions; precautions maintained -MM Cognition Arousal/Alertness Alert;Appropriate responses to stimuli -MM Compliance/Behavior Easy to engage -MM Balance Balance Yes -MM Static Sitting Balance Static Sitting-Balance Support Bilateral upper extremity supported -MM Static Sitting-Sitting Surface Bed -MM Static Sitting-Level of Assistance Close supervision -MM Static Sitting-Comment/# of Minutes safety - pt reporting severe dizziness and nausea -MM Static Standing Balance Static Standing-Comment/# of Minutes NT on this date 2/2 dizziness in sitting with significant decrease in BP; improved when sitting in chair after lift, however declined standing -MM Supine Supine-Exercises Lower extremity;Specific exercises;Left -MM Supine-Exercise Type Ankle pumps;Quad sets -MM Reps/Sets 10/1 -MM Supine-Motion AROM -MM Equipment Use Equipment Use Comments No gait belt 2/2 no OOB without lift -MM Bed Mobility Bed Mobility Yes -MM Bed Mobility 1 Bed Mobility From 1 Supine -MM Bed Mobility Type 1 To and from -MM Bed Mobility to 1 Edge of bed -MM Level of Assistance 1 Standby Assist -MM Bed Mobility Comments 1 SBA for cues, pt moves LLE indep, HOB elevated, increased time to perform 2/2 dyspnea and dizziness. Pt immedicately returned to lying 2/2 significant BP drop -MM Bed Mobility 2 Bed Mobility From 2 Supine -MM Bed Mobility Type 2 To and from -MM Bed Mobility to 2 Rolling left;Rolling right -MM Level of Assistance 2 Contact Guard Assist -MM Bed Mobility Comments 2 Pt performed force prodution without assist, grabs bedrail and pulls to turn trunk, LEs follow -MM Transfers Transfer Yes -MM Transfer 1 Transfer From 1 Bed -MM Transfer Type 1 To -MM Transfer to 1 Chair with arms -MM Technique 1 Lateral -MM Transfer Device 1 Mechanical device -MM Transfer Level of Assistance 1 Dependent -MM Trials/Comments 1 overhead lift -MM Ambulation Ambulation No -MM Stairs Stairs No -MM Other Comments Other PT Comments Dyspnea with activity, SpO2 stable. BP stable when up in chair, pt declined attempting to stand from chair -MM Assessment Prognosis Good -MM Problem List Decreased strength;Decreased endurance;Impaired balance;Decreased mobility;Pain;Orthopedic restrictions -MM Barriers to Discharge Current Mobility Status -MM Plan Plan If this is the last note, consider this the discharge summary;Alter current plan -MM Plan Comments Goals adjusted -MM Recommendation/Plan PT Recommendation/Plan Long-Term Facility -MM PT Frequency 3-5x/wk -MM Treatment/Interventions Balance Training;Bed mobility;Endurance training;Gait training;Transfer training;Stair training;Therapeutic activity;Therapeutic exercise -MM User Montgomery (r) = Recorded By, (t) = Taken By, (c) = Cosigned By Initials Name Effective Dates MM Yesenia Ch, PT 02/14/19 - PT Notes (Notes from 05/31/19 through 06/02/19) No notes of this type exist for this encounter. * Hospital Course - JedKae Shadi Braxton MD - 06/02/2019 9:35 AM CDT #Acute bilateral pulmonary embolism Patient presented with provoked PE in setting of recent orthopedic surgery and subtherapeutic warfarin for afib without bridging at discharge for surgery. She presented to an outside hospital from the rehab with increased SOB, chest pressure R>L, and new O2 requirements not required at baseline.At the outside hospital, CT PE showed bilateral PEs (right segmental, left subsegmental). Labs revealed proBNP 5830, lactate 4.7, and troponin trended 0.036 --> 0.058 --> 0.11. She was started on IV heparin gtt for anticoagulation. She was transferred to [facility] SICU, where repeat labs were significant for proBNP 7985, lactate 1.0, and troponin downtrended to 0.08. Lower extremity dopplers (05/29) showed right lower extremity acute DVT in peroneal and soleal veins. Unable to image left lower extremity due to dressings. Bedside ultrasound showed evidence of right heart strain and formal TTE showed decreased ejection fraction 38% from baseline (51%), L atrial enlargement, mitral annulus calcification, mild dilation RV, moderate RV hypokinesis, mild RA enlargement, dilated inferior vena cava, mild mitral and tricuspid regurgitation, and moderate atrial stenosis. The patient was never on pressors or intubated in the ICU and quickly weaned to room air. Bridging with heparin to warfarin was started with 5 mg loading dose 05/30 and subsequently 2 mg daily beginning 05/31 which was her previous home maintenance dose. At discharge, the patient's INR is therapeutic at 2.0 and her shortness of breath was improved on room air. She will need continued INR monitoring and continued warfarin dose adjustment for goal INR 2-3. ?? #Afib with RVR At the outside hospital, she was found to be in afib with RVR in setting of PE. She was initially managed on diltiazem gtt and transitioned to amiodarone gtt here with good rate control. She was briefly transitioned to metoprolol and ultimately restarted on her home carvedilol 25 mg BID for rate control. She was continued on anticoagulation as above for management of PE, and discharged on warfarin 2 mg daily, though will require regular INR monitoring and warfarin titration to goal INR 2-3. ?? #Left distal femoral fracture After a fall (05/20) leading to a left distal femoral fracture, the patient initially underwent debridement (05/21) where it was determined there was too much damage for primary fixation. Therefore, she underwent left total knee arthroplasty with distal femoral replacement (05/24) with Dr. Charles without any complications and discharged 05/26 to a rehab facility. Orthopedic surgery has been following throughout the patient's current admission and recommended weight bearing to left lower extremity as tolerated. PT and OT therapy were continued and recommended continued therapy at [facility] facility at discharge. She has follow up scheduled with Dr. Charles on 06/16/19 and has instructionsfrom orthopedic surgery to keep steris and theodore in place until her follow up appointment. ?? #Peripheral edema The patient had 2+ bilateral lower extremity pitting edema upon transfer to floor. TTE showed decreased ejection fraction 38% from baseline (51%), L atrial enlargement, mitral annulus calcification, mild dilation RV, moderate RV hypokinesis, mild RA enlargement, dilated inferior vena cava, mild mitral and tricuspid regurgitation, and moderate atrial stenosis. Home Lasix 20 mg daily was started 05/30 with little improvement and increased to 20 mg BID 06/01. She was discharged with instructions to continue Lasix 20 mg BID and continue carvedilol 25 mg BID, and restart losartan 50 mg daily. 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 ?? #T2DM - During admission home metformin was held. Her diabetes was controlled on Lantus 10 units qAM, and a mid dose sliding scale insulin. She was placed on a consistent carbohydrate diet. #HTN: During admission, home HCTZ, amlodipine, losartan, and carvedilol were initially held due to soft blood pressures. On discharge, carvedilol had been restarted at 25 mg daily and losartan restarted at 50 mg daily. She will follow up as an outpatient about restarting her home regimen. #Hypothyroidism: Home levothyroxine 25 mcg was continued through admission. #AYAD: Home CPAP was used throughout admission. #HLD: Home home lovastatin 10 mg daily was continued throughout admission. * Plan of Care - Suzanne Cano RRT - 06/02/2019 5:04 AM CDT Patient wore nocturnal home NPPV. Continue therapy as ordered. No respiratory distress overnight. Will continue to monitor. * Plan of Care - Isabel Mitchell RN - 06/02/2019 3:14 AM CDT Problem: Lack of Knowledge: Goal: Ability to state ways to decrease the risk of falls will improve 06/02/2019 031 by Isabel Mitchell RN Outcome: Progressing 06/02/2019 0314 by Isabel Mitchell RN Outcome: Progressing Problem: Safety: Goal: Will remain free from falls 06/02/2019 031 by Isabel Mitchell RN Outcome: Progressing 06/02/2019 0314 by Isabel Mitchell RN Outcome: Progressing Goal: Will remain free from injury from falls 06/02/2019 0314 by Isabel Mitchell RN Outcome: Progressing 06/02/2019 0314 by Isabel Mitchell RN Outcome: Progressing Goal: Will remain free from falls and injury in home environment 06/02/2019 0314 by Isabel Mitchell RN Outcome: Progressing 06/02/2019 0314 by Isabel Mitchell RN Outcome: Progressing Problem: Lack of Knowledge: Goal: Ability to develop a pain control plan will improve 06/02/2019 0314 by Isabel Mitchell RN Outcome: Progressing 06/02/2019 0314 by Isabel Mitchell RN Outcome: Progressing Goal: Ability to identify pain intensity on a pain scale and rate it consistently will improve 06/02/2019 0314 by Isabel Mitchell RN Outcome: Progressing 06/02/2019 0314 by Isabel Mitchell RN Outcome: Progressing Goal: Ability to notify healthcare provider of pain before it becomes unmanageable or unbearable will improve 06/02/2019 0314 by Isabel Mitchell RN Outcome: Progressing 06/02/2019 0314 by Isabel Mitchell RN Outcome: Progressing Problem: Medication: Goal: Satisfaction with pain management regimen will improve 06/02/2019 0314 by Isabel Mitchell RN Outcome: Progressing 06/02/2019 0314 by Isabel Mitchell RN Outcome: Progressing Problem: Lack of Knowledge: Goal: Knowledge of the prescribed therapeutic regimen will improve 06/02/2019 031 by Isabel Mitchell RN Outcome: Progressing 06/02/2019 0314 by Isabel Mitchell RN Outcome: Progressing Goal: Ability to demonstrate proper wound care will improve 06/02/2019 0314 by Isabel Mitchell RN Outcome: Progressing 06/02/2019 0314 by Isabel Mitchell RN Outcome: Progressing Problem: Health Behavior: Goal: Identification of resources available to assist in meeting health care needs will improve 06/02/2019 0314 by Isabel Mitchell RN Outcome: Progressing 06/02/2019 0314 by Isabel Mitchell RN Outcome: Progressing Problem: Nutritional: Goal: Nutritional status will improve 06/02/2019 0314 by Isabel Mitchell RN Outcome: Progressing 06/02/2019 0314 by Isabel Mitchell RN Outcome: Progressing Problem: Cardiac: Goal: Knowledge of VTE will improve by discharge 06/02/2019 0314 by Isabel Mitcehll RN Outcome: Progressing 06/02/2019 0314 by Isabel Mitchell RN Outcome: Progressing Problem: Lack of Knowledge: Goal: Knowledge of the prescribed therapeutic regimen will improve 06/02/2019 0314 by Isabel Mitchell RN Outcome: Progressing 06/02/2019 0314 by Isabel Mitchell RN Outcome: Progressing Problem: Activity: Goal: Muscle strength will improve 06/02/2019 0314 by Isabel Mitchell RN Outcome: Progressing 06/02/2019 0314 by Isabel Mitchell RN Outcome: Progressing Goal: Range of joint motion will improve 06/02/2019 0314 by Isabel Mitchell RN Outcome: Progressing 06/02/2019 0314 by Isabel Mitchell RN Outcome: Progressing Problem: Safety: Goal: Ability to appropriately use an adaptive device for ambulation will improve 06/02/2019 0314 by Isabel Mitchell RN Outcome: Progressing 06/02/2019 0314 by Isabel Mitchell RN Outcome: Progressing Goal: Ability to safely and independently change position in bed will improve 06/02/2019 0314 by Isabel Mitchell RN Outcome: Progressing 06/02/2019 0314 by Isabel Mitchell RN Outcome: Progressing Goal: Ability to safely transfer will improve 06/02/2019 0314 by Isabel Mitchell RN Outcome: Progressing 06/02/2019 0314 by Isabel Mitchell RN Outcome: Progressing Problem: Activity: Goal: Ability to participate in self-care as condition permits will improve 06/02/2019 0314 by Isabel Mitchell RN Outcome: Progressing 06/02/2019 0314 by Isabel Mitchell RN Outcome: Progressing Problem: Cardiac: Goal: Ability to maintain an adequate cardiac output will improve 06/02/2019 0314 by Isabel Mitchell RN Outcome: Progressing 06/02/2019 0314 by Isabel Mitchell RN Outcome: Progressing Goal: Will show no evidence of cardiac arrhythmias 06/02/2019 0314 by Isabel Mitchell RN Outcome: Progressing 06/02/2019 0314 by Isabel Mitchell RN Outcome: Progressing Goal: Complications related to the disease process, condition or treatment will be avoided or minimized 06/02/2019 0314 by Isabel Mitchell RN Outcome: Progressing 06/02/2019 0314 by Isabel Mitchell RN Outcome: Progressing Problem: Lack of Knowledge: Goal: Knowledge of the prescribed therapeutic regimen will improve 06/02/2019 0314 by Isabel Mitchell RN Outcome: Progressing 06/02/2019 0314 by Isabel Mitchell RN Outcome: Progressing Goal: Knowledge of disease or condition will improve 06/02/2019 0314 by Isabel Mitchell RN Outcome: Progressing 06/02/2019 0314 by Isabel Mitchell RN Outcome: Progressing Goal: Ability to identify and utilize available resources and services will improve 06/02/2019 0314 by Isabel Mitchell RN Outcome: Progressing 06/02/2019 0314 by Isabel Mitchell RN Outcome: Progressing Problem: Lack of Knowledge: Goal: Understanding of ways to prevent future skin breakdown will improve 06/02/2019 0314 by Isabel Mitchell RN Outcome: Progressing 06/02/2019 0314 by Isabel Mitchell RN Outcome: Progressing Goal: Ability to identify appropriate dietary choices will improve 06/02/2019 0314 by Isabel Mitchell RN Outcome: Progressing 06/02/2019 0314 by Isabel Mitchell RN Outcome: Progressing Problem: Nutritional: Goal: Dietary intake will improve 06/02/2019 0314 by Isabel Mitchell RN Outcome: Progressing 06/02/2019 0314 by Isabel Mitchell RN Outcome: Progressing Goal: Ability to maintain a balanced intake and output will improve 06/02/2019 0314 by Isabel Mitchell RN Outcome: Progressing 06/02/2019 0314 by Isabel Mitchell RN Outcome: Progressing Problem: Skin Integrity: Goal: Risk for impaired skin integrity will decrease 06/02/2019 0314 by Isabel Mitchell RN Outcome: Progressing 06/02/2019 0314 by Isabel Mitchell RN Outcome: Progressing Goal: Ability to demonstrate warm and dry skin will improve 06/02/2019 0314 by Isabel Mitchell RN Outcome: Progressing 06/02/2019 0314 by Isabel Mitchell RN Outcome: Progressing Goal: Circulation will improve to fullest extent possible 06/02/2019 0314 by Isabel Mitchell RN Outcome: Progressing 06/02/2019 0314 by Isabel Mitchell RN Outcome: Progressing Problem: Health Behavior: Goal: Understanding of discharge needs will improve 06/02/2019313 by Isabel Mitchell RN Outcome: Progressing 06/02/2019313 by Isabel Mitchell RN Outcome: Progressing Problem: Activity: Goal: Ability to avoid complications of mobility impairment will improve 06/02/2019313 by Isabel Mitchell RN Outcome: Not Progressing 06/02/2019313 by Isabel Mitchell RN Outcome: Progressing Problem: Activity: Goal: Ability to ambulate will improve 06/02/2019313 by Isabel Mitchell RN Outcome: Not Progressing 06/02/2019313 by Isabel Mitchell RN Outcome: Progressing Problem: Activity: Goal: Ability to tolerate increased activity will improve 06/02/2019313 by Isabel Mitchell RN Outcome: Not Progressing 06/02/2019313 by Isabel Mitchell RN Outcome: Progressing Problem: Activity: Goal: Mobility will improve 06/02/2019313 by Isabel Mitchell RN Outcome: Not Progressing 06/02/2019313 by Isabel Mitchell RN Outcome: Progressing Goals: Clinical Goals for the Shift: Pt will have decreased SOB Summary: Pt had no complaints of SOB during shift. Pt K decreased to 3.1 and was given PO K supplements as treatment. VSS. * Plan of Care - Lucila Pena RN - 06/01/2019 4:00 PM CDT Problem: Lack of Knowledge: Goal: Ability to state ways to decrease the risk of falls will improve Outcome: Progressing Problem: Safety: Goal: Will remain free from falls Outcome: Progressing Goal: Will remain free from injury from falls Outcome: Progressing Goal: Will remain free from falls and injury in home environment Outcome: Progressing Problem: Lack of Knowledge: Goal: Ability to develop a pain control plan will improve Outcome: Progressing Goal: Ability to identify pain intensity on a pain scale and rate it consistently will improve Outcome: Progressing Goal: Ability to notify healthcare provider of pain before it becomes unmanageable or unbearable will improve Outcome: Progressing Problem: Medication: Goal: Satisfaction with pain management regimen will improve Outcome: Progressing Problem: Activity: Goal: Ability to avoid complications of mobility impairment will improve Outcome: Progressing Problem: Lack of Knowledge: Goal: Knowledge of the prescribed therapeutic regimen will improve Outcome: Progressing Goal: Ability to demonstrate proper wound care will improve Outcome: Progressing Problem: Health Behavior: Goal: Identification of resources available to assist in meeting health care needs will improve Outcome: Progressing Problem: Nutritional: Goal: Nutritional status will improve Outcome: Progressing Problem: Cardiac: Goal: Knowledge of VTE will improve by discharge Outcome: Progressing Problem: Lack of Knowledge: Goal: Knowledge of the prescribed therapeutic regimen will improve Outcome: Progressing Problem: Activity: Goal: Ability to ambulate will improve Outcome: Progressing Goal: Muscle strength will improve Outcome: Progressing Goal: Range of joint motion will improve Outcome: Progressing Problem: Safety: Goal: Ability to appropriately use an adaptive device for ambulation will improve Outcome: Progressing Goal: Ability to safely and independently change position in bed will improve Outcome: Progressing Goal: Ability to safely transfer will improve Outcome: Progressing Problem: Activity: Goal: Ability to tolerate increased activity will improve Outcome: Progressing Goal: Ability to participate in self-care as condition permits will improve Outcome: Progressing Problem: Cardiac: Goal: Ability to maintain an adequate cardiac output will improve Outcome: Progressing Goal: Will show no evidence of cardiac arrhythmias Outcome: Progressing Goal: Complications related to the disease process, condition or treatment will be avoided or minimized Outcome: Progressing Problem: Lack of Knowledge: Goal: Knowledge of the prescribed therapeutic regimen will improve Outcome: Progressing Goal: Knowledge of disease or condition will improve Outcome: Progressing Goal: Ability to identify and utilize available resources and services will improve Outcome: Progressing Problem: Activity: Goal: [...] to fullest extent possible Outcome: Progressing Problem: Health Behavior: Goal: Understanding of discharge needs will improve Outcome: Progressing Goals: Clinical Goals for the Shift: Pt will remain free from SOB Summary: Some episodes of SOB after movement but no O2 requirement. * Plan of Care - Ryann Marcelino MSW - 06/01/2019 1:11 PM CDT Per DCAM, patient is not medically stable for discharge at this time. Patient will be on heparin drip until therapeutic INR. MD reported that patient's does not want her to discharge to a SNFand would like patient to return home at discharge. PT/OT to evaluate patient again and provide recommendations. Social Work to follow to assist with discharge planning until decision between SNF andhome finalized. ADD: 06/03/19 Ryann Marcelino LMSW [phone] * Plan of Care - Gail Benavides RN - 06/01/2019 1:06 PM CDT Report per DCAM: Patient has PE. Patient will need to be on heparin drip until therapeutic. Impression: 79 y.o.??female??presented to the ICU with chief complaint of??chest pain and shortnessof breath Problem/Goals: Establish a safe discharge plan Referrals: SW following for possible placement- Per MD patient seems agreeable but patient's does not Support: Transportation: to be arranged prior to discharge F/U Appt: to be arranged prior to discharge e ADD 06/02 Case Management will follow for planning and referrals as needed. For any questions, please call ariana For emergency needs after 4:30 pm, please call the privacy specialist . For weekend/holiday needs from 8:00a.m. - 4:30p.m., please call the Weekend Lockstitch Waistband Setter . * Plan of Care - Suzie Sultana LCSW - 06/01/2019 9:42 AM CDT SW would like to note patient transferred from [address] [place] [address] to [facility]. Intervention/Plan: Intervention/Plan: Per chart review patient was recently discharged to [facility] [phone]. ??She left [facility] on 05/27/2019. ??SW has a prior SW assessment in chart from 05/26/2019 by ANASTACIA Florez. ?? Patient will be screened and followed by CM as well as SW for??discharge planning??needs and assistance. ??Therapy recommendations currently pending assessment. ??CM will assist with coordinating home health care and DME needs as guided by team. ??SW will assist CM as needed and will also offer education on continued care facility options, insurance coverage &??criteria should facility placement be recommended by team. ? Patient has been referred to appropriate level of care as recommended by team--either skilled/rehab/LTAC--facilities of choice and is being screened/followed for potential [facility] when [facility] [phone] Gloria in Admissions [phone] per patient reques t. She does not want to return to [facility]. Gloria at [facility] will need to review patient and verify whether facility is in network with insurance [employer]. ?? Patient's primary contact is: Ravi [phone]. Floor SW notified of transfer. Suzie Sultana LCSW, [facility] [phone] * Plan of Care - Anna Marie Murphy RRT - 06/01/2019 3:38 AM CDT Patient is currently wearing there home cpap overnight for AYAD. Plan: For patient to continue to wear there home cpap overnight for AYAD. * Plan of Care - Shari Bennett RN - 06/01/2019 1:47 AM CDT Problem: Lack of Knowledge: Goal: Ability to state ways to decrease the risk of falls will improve Outcome: Progressing Problem: Safety: Goal: Will remain free from falls Outcome: Progressing Goal: Will remain free from injury from falls Outcome: Progressing Goal: Will remain free from falls and injury in home environment Outcome: Progressing Problem: Lack of Knowledge: Goal: Ability to develop a pain control plan will improve Outcome: Progressing Goal: Ability to identify pain intensity on a pain scale and rate it consistently will improve Outcome: Progressing Goal: Ability to notify healthcare provider of pain before it becomes unmanageable or unbearable will improve Outcome: Progressing Goals: Clinical Goals for the Shift: Patient will have reduced work of breathing, voiding trial, monitoring aPTT Summary: Patient denying any ANABELA on RA.Passed urine x1 up until now. APTT therapeutic. Heparin gtt running. VSS. Will continue to monitor * Assessment & Plan Note - Kae Adkins MD - 05/31/2019 8:20 PM CDT Associated Problem(s): Left femoral fracture (Resolved 06/01/2021) Recent distal femoral fracture s/p debridement on 05/21 and left knee arthroplasty with distal femoral replacement on 05/24. - Left lower extremity weight bearing as tolerated - Orthopedics following: theodore to stay in place until follow-up outpatient appointment - Pain control with Tylenol 1 g q6h PRN and oxycodone 5 mg q4h PRN second line - PT/OT * Assessment & Plan Note - Kae Adkins MD - 05/31/2019 8:18 PM CDT Associated Problem(s): Essential hypertension Patient on amlodipine 5 mg, losartan 100 mg, carvedilol 25 mg BID, and HCTZ 25 mg at home - Currently holding home antihypertensives in setting of PE with soft blood pressures, restart as tolerated * Assessment & Plan Note - Kae Adkins MD - 05/31/2019 8:14 PM CDT Associated Problem(s): Type 2 diabetes mellitus without complications (CMS/HCC) (HCC) Home regimen of metformin 1 g BID, semaglutide weekly. - A1c 6.5% on 05/30/19 - Continue lantus 10 units qhs with MDSSI * Assessment & Plan Note - Kae Adkins MD - 05/31/2019 8:14 PM CDT Associated Problem(s): Obstructive sleep apnea (Resolved 03/03/2023) Continue home nocturnal CPAP * Assessment & Plan Note - Kae Adkins MD - 05/31/2019 8:13 PM CDT Associated Problem(s): Acquired hypothyroidism Continue home levothyroxine 25 mcg daily * Assessment & Plan Note - Kae Adkins MD - 05/31/2019 8:10 PM CDT Associated Problem(s): Atrial fibrillation with RVR (CMS/HCC) (HCC) (Deleted) Patient with history of chronic Afib, previously cardioverted and maintained on sotalol, but with recent history of paroxysmal Afib, rate controlled on carvedilol 25 mg BID. Previously anticoagulatedon warfarin, reportedly recently adjusted to 2 mg MWF, and 1.5 mg on other days due to supratherapeutic INR. This was increased to 2 mg daily after her LLE surgery. Currently presented with RVR in setting of known PE. - s/p diltiazem gtt at OSH -> transitioned to IV amiodarone load in SICU - transitioned to metoprolol 05/30, increase to 50 mg q6h for rate control - transitioned back to home carvedilol 25 mg BID on 06/02 for continued rate control + HTN - heparin gtt discontinued 06/03 given warfarin therapeutic, continue warfarin 2 mg daily * Assessment & Plan Note - Kae Adkins MD - 05/31/2019 8:08 PM CDT Associated Problem(s): Acute pulmonary embolism with acute cor pulmonale (CMS/HCC) (HCC) (Resolved 02/13/2022) Presented with SOB, chest pain, Afib with [...] KAROL. Dilated inferior vena cava. Mild MR andTR. Moderate . - lower extremity dopplers positive for acute RLE DVT - Continue heparin gtt - s/p warfarin 5 mg load, transition to maintenance dose at 2 mg - increase lasix to 20 mg BID - Monitor INR daily * Medical Student - Cecily Barbour - 05/31/2019 6:24 PM CDT History and Physical Medicine FIRM Name: Prema Hodgson Today: May 31, 2019 : 1940 Age: 79 y.o. female Subjective The patient is a 79 y.o. female with history of afib (prev controlled warfarin and coreg), T2DM, HTN, HLD, hypothyroidism, AYAD, and recent left distal femoral fracture s/p reduction who presented with acute PE and afib with RVR. She is now being transferred from SICU to floor for further management. HPI: After a fall (05/20) leading to a left distal femoral fracture, the patient initially underwent debridement (05/21) where it was determined there was too much damage for primary fixation. Therefore, she underwent left total knee arthroplasty with distal femoral replacement (05/24) with Dr. Charles without any complications and discharged 05/26 to a rehab facility. Unfortunately, the patient was discharged on subtherapeutic warfarin without a bridge and presented to an outside hospital from the rehab with increased SOB, chest pressure R>L, and new O2 requirements not required at baseline. At the outside hospital, she was found to be in afib with RVR and CT PE showed bilateral PEs (right segmen darlene, left subsegmental). She was given diltiazem 10 mg bolus, heparin bolus 8000 units, and then started on diltiazem and heparin gtts. Labs revealed proBNP 5830, lactate 4.7, and troponin trended 0.036 --> 0.058 --> 0.11. 05/29/19 the patient was transferred to [facility] SICU since the orthopedic surgery was originally performed at [facility]. An amiodarone gtt was started and she was later transitioned to metoprolol 25 mg Q6 for better rate control. Repeat labs were significant for proBNP 7985, lactate 1.0, and troponin 0.08. Lower extremity dopplers (05/29) showed right lower extremity acute DVT in peroneal and soleal veins. Unable to image left lower extremity due to dressings. Bedside ultrasound showed evidence of right heart strain and formal TTE showed decreased ejection fraction 38% from baseline (51%), L atrial enlargement, mitral annulus calcification, mild dilation RV, moderate RV hypokinesis, mild RA enlargement, dilated inferior vena cava, mild mitral and tricuspid regurgitation, and moderate atrial stenosis.In the ICU, she has done well tolerating a diet and weaned to room air. Currently she has intermittent shortness of breath, and chest pressure/heaviness right greater thanleft. She has had longstanding afib and knows when she is having afib due to her heart racing and fatigue. Previously she was on 2 mg maintenance. She denies fever, chills, chest pain, abdominal pain, lower extremity pain, and URI/infectious symptoms. Yesterday she began weight bearing as toleratedon transfer. Past Medical History: Diagnosis Date ??? Atrial fibrillation (CMS/HCC) ??? Dyslipidemia ??? Hypertension ??? Hypothyroidism ??? Mitral regurgitation ??? Obesity ??? PONV (postoperative nausea and vomiting) ??? Sleep apnea Past Surgical History: Procedure Laterality Date ??? BREAST LUMPECTOMY ??? CHOLECYSTECTOMY ??? HAND SURGERY Left plate & screws ??? HYSTERECTOMY ??? INCISION AND DRAINAGE FEMUR Left 05/22/2019 HOME MEDICATIONS : amLODIPine (NORVASC) 5 mg tablet carvedilol (COREG) [address] (CYMBALTA) 30 mg capsule furosemide (LASIX) 20 mg tablet hydroCHLOROthiazide (HYDRODIURIL) 25 mg tablet levothyroxine (SYNTHROID, LEVOTHROID) 25 mcg tablet metFORMIN (GLUCOPHAGE) 1,000 mg tablet warfarin (COUMADIN) 2 mg tablet zolpidem (AMBIEN) 5 mg tablet ALPRAZolam (XANAX) 0.25 mg tablet cholecalciferol, vitamin D3, (VITAMIN D3 ORAL) losartan (COZAAR) 100 mg tablet lovastatin (MEVACOR) 10 mg tablet multivit,iron,minerals/lutein (CENTRUM SILVER ULTRA WOMEN'S ORAL) oxyCODONE-acetaminophen (PERCOCET) 5-325 mg per tablet Ozempic 0.25 mg or 0.5 mg(2 mg/1.5 mL) pen injector potassium chloride ER (KLOR-CON) 20 mEq CR tablet senna-docusate (PERICOLACE) 8.6-50 mg Allergies Allergen Reactions ??? Mili Inhibitors Cough Reaction: COUGH, ??? Citalopram ??? [...] TW Conv) ??? Anesthesia problems Neg Hx Family History reviewed and non-contributory. Review of Systems All other systems were reviewed and are negative. Objective Vitals: 24hr Min/Max: Temp Min: 36.7 ??C (98.1 ??F) Max: 37 ??C (98.6 ??F) Pulse Min: 93 Max: 125 BP Min: 92/64 Max: 142/99 Resp Min: 14 Max: 24 SpO2 Min: 90 % Max: 98 % Most Recent Vitals: Vitals: 05/31/19 1811 BP: 116/79 Pulse: 97 Resp: 18 Temp: SpO2: 96% Intake/Output Summary (Last 24 hours) at 05/31/2019 1824 Last data filed at 05/31/2019 1800 Gross per 24 hour Intake 2057.6 ml Output 1740 ml Net 317.6 ml Physical Exam Vitals signs reviewed. Constitutional: General: She is not in acute distress. Appearance: She is obese. HENT: Head: Normocephalic and atraumatic. Mouth/Throat: Mouth: Mucous membranes are moist. Eyes: Extraocular Movements: Extraocular movements intact. Pupils: Pupils are equal, round, and reactive to light. Cardiovascular: Rate and Rhythm: Normal rate. Rhythm irregular. Pulses: Normal pulses. Heart sounds: Normal heart sounds. Pulmonary: Effort: Pulmonary effort is normal. Breath sounds: Rales present. Comments: Expiratory crackles Abdominal: General: Bowel sounds are normal. There is no distension. Palpations: Abdomen is soft. Tenderness: There is no abdominal tenderness. There is no guarding. Musculoskeletal: Right lower leg: Edema present. Left lower leg: Edema present. Comments: 2+ pitting edema bilaterally Dry left knee bandages with shadowing but no gross hematoma or erythema Skin: General: Skin is warm and dry. Neurological: Mental Status: She is alert and oriented to person, place, and time. Lab/Diagnostic Review: Recent Results (from the past 24 hour(s)) POCT glucose Collection Time: 05/30/19 7:03 PM Result Value Ref Range Glucose, POC 164 70 - 199 mg/dL CBC without differential Collection Time: 05/30/19 9:46 PM Result Value Ref Range WBC 10.3 (H) 3.8 - 9.9 K/cumm Hgb 8.4 (L) 11.9 - 15.5 g/dL Hct 26.9 (L) 35.6 - 45.5 % Plt 338 150 - 400 K/cumm MPV 10.4 9.1 - 12.3 fL RBC 2.73 (L) 3.90 - 5.20 M/cumm MCV 98.5 (H) 81.3 - 96.4 fL MCH 30.8 27.1 - 33.3 pg MCHC 31.2 (L) 32.3 - 35.7 g/dL RDW CV 15.9 (H) 11.1 - 14.9 % RDW SD 54.7 (H) 35.7 - 48.1 fL NRBC abs 0.12 (H) 0.00 - 0.01 K/cumm Basic metabolic panel Collection Time: 05/30/19 9:46 PM Result Value Ref Range Sodium 132 (L) 135 - 145 mmol/L Potassium, pl 3.6 3.3 - 4.9 mmol/L Chloride 97 97 - 110 mmol/L CO2 25 22 - 32 mmol/L Anion gap 10 2 - 15 mmol/L BUN 19 8 - 25 mg/dL Creatinine 0.58 (L) 0.60 - 1.10 mg/dL Glucose 157 70 - 199 mg/dL Calcium 8.5 8.5 - 10.3 mg/dL Calcium, ionized Collection Time: 05/30/19 9:46 PM Result Value Ref Range Calcium, Ionized 4.25 (L) 4.50 - 5.10 mg/dL Magnesium Collection Time: 05/30/19 9:46 PM Result Value Ref Range Magnesium 1.8 1.4 - 2.5 mg/dL Phosphorus Collection Time: 05/30/19 9:46 PM Result Value Ref Range Phosphorus, pl 2.7 2.3 - 4.5 mg/dL Hemoglobin A1c Collection Time: 05/30/19 9:46 PM Result Value Ref Range Hgb A1C 6.5 (H) 4.0 - 5.6 % Estimated Average Glucose 140 mg/dL POCT glucose Collection Time: 05/30/19 11:41 PM Result Value Ref Range Glucose, POC 162 70 - 199 mg/dL Protime-INR Collection Time: 05/30/19 11:59 PM Result Value Ref Range PT 17.1 (H) 8.6 - 13.0 sec INR 1.6 (H) 0.8 - 1.2 aPTT Collection Time: 05/30/19 11:59 PM Result Value Ref Range aPTT 66 (H) 25 - 37 sec POCT glucose Collection Time: 05/31/19 3:08 AM Result Value Ref Range Glucose, POC 178 70 - 199 mg/dL POCT glucose Collection Time: 05/31/19 7:40 AM Result Value Ref Range Glucose, POC 180 70 - 199 mg/dL POCT glucose Collection Time: 05/31/19 11:37 AM Result Value Ref Range Glucose, POC 192 70 - 199 mg/dL POCT glucose Collection Time: 05/31/19 5:15 PM Result Value Ref Range Glucose, POC 168 70 - 199 mg/dL I have reviewed the laboratory results. Imaging Results: Transthoracic Echo Complete W Doppler/CF Patient name: Prema Hodgson Date of test: 05/30/2019 Type of test: TTE w/Doppler [facility] #: [id number] Date of : 1940 (F) King Maker: Roxanne Werner RDCS Referring Physician: LEILA ANDRE MD Contrast Agent: 1.1 ml Optison Administered, (1.9 ml wasted). Contrast Administered by: charlotte rn Supervised/Interpreted by: Garcia Cline MD. Diagnosis: Location: [facility] Reason for test: Atrial fibrillation (AF) or SVT MV Structure: Normal, MV Motion: Normal, Mitral Annulus: moderately calcified AV Structure: tricuspid and is mildly thickened, AV Motion: restricted Aotic root: Normal, TM: Normal, PV: Normal Valvular Vegetations: none seen, Mass/Thrombi: none seen RA: Normal Measurements: M-Mode Normal Aotic Root: <3.8 LA: <3.8 RV: <2.8 LV(ED): <5.7 LV(ES): Variable 2D Linear Normal Aotic Root: 3.0 cm <3.6 Ao Indexed: 1.4 cm/M2 <2.0 LA: <3.8 RV: 4.2 cm <4.2 LV(ED): 4.3 cm <5.3 LV(ES): 3.4 cm <3.5 2D Vol. Normal Indexed Indexed Normal RA: 38.0 ml 17.8 ml/M2 9-33 LA: 145.0 ml 67.8 ml/M2 16-34 RV: 28.0 cm2 13.1 cm2/M <11.6 LV(ED): 72.0 ml 46-106 33.7 ml/M2 <62 LV(ES): 45.0 ml 14-42 21.1 ml/M2 <25 3D Vol. Indexed Normal LV(ED): <62 LV(ES): <24 LV EF: 38 % (Mod. Redd's) (Normal: >=54%) LV Septum: 0.9 cm (Normal: <0.9 cm) Wall Motion Scoring (1=Normal 2=Hypo 3=Akinetic 4=Dyskin./Aneurysm 0=Not visualized) Parasternal Long [place]:MAS=2 BAS=2 MP=2 BP=2 Parasternal Short [place]:MAS=2 MS=2 NJ=2 MP=2 ML=2 MA=2 Apical 4 Chambers:=2 MS=2 BS=2 BL=2 NJ=2 AL=2 Apical 2 Chambers:AI=2 NJ=2 BI=2 BA=2 MA=2 AA=2 LV Global Longitudinal Strain: -8% (Normal <-19%) RV Global Longitudinal Strain: LV Function: Moderate Global reduction in LV Ejection Fraction (EF=30-40%); EF via modified Redd's. RV Function: moderate global hypokinesis Septal Motion: HYPOKINETIC Pericardial Effusion: none seen Atrial Septum: Normal DOPPLER/COLOR FOLOW DOPPLER RESULTS: Diastolic Function: indeterminate Tricuspid Valve: mild TV regurgitation Pulmonic Valve: normal PV AV Regurgitation: No AR seen AV Stenosis: moderate AV Area: 1.3 cm2 AV Pressure Gradient (mmHg): Mean: 12, Peak:18 MV Regurgitation: Mild MR MV Stenosis: no MS MV Area: cm2 MV Pressure Gradient (mmHg): Mean: 0 MV ERO: cm Regurg. Vol.: ml/beat Regurg. Frac.: % PA Pressure: 40 mmHg DOPPLER/COLOR FOLOW DOPPLER COMMENTS: No AR seen, Mild MR, moderate , no MS, mild TV regurgitation, normal PV. Diastolic function: indeterminate LVOT/AV VTI ratio = 16/38 CONTRAST: 1.1 ml Optison Administered, (1.9 ml wasted). SUMMARY: Normal LV chamber size, moderate systolic dysfunction, EF=38%. Marked LAE. Moderate MAC. Mildly dilated RV, moderate RV hypokinesis. Mild KAROL. Dilated inferior vena cava. Mild MR and TR. Moderate . Confirmed on 05/30/2019 - 17:38:09 by Garcia Cline MD. By signing this report, the attending sheet metal worker helper certifies that he or she has personally supervised and interpreted the echocardiogram and has reviewed and or edited and agrees with the written comments contained within the report. XR Chest 1 View Narrative: EXAMINATION: 1 view chest radiograph Impression: Comparison with radiograph dated 05/21/2019 and 05/03/2010. Trace bilateral pleural effusions. Again seen is the right upper lobe nodular opacity, likely representing a calcified granuloma. No pneumothorax. Mildly enlarged cardiac silhouette. Calcified thoracic aorta. Dictated by: Thomas Ross M.D. The radiology attending physician has personally reviewed this study, and had reviewed and/or edited this written report and agrees with it. Electronically signed by: Tommy Dennison M.D. US Vein Duplex Lower Extremity Bilateral Complete [facility] - Department of Vascular Surgery, Vascular Laboratory [address] [place], [place] [id number] Lower Extremity Venous Ultrasound Report ---Preliminary--- Patient Name: PREMA HODGSON A : 1940 (79y 3m) Study Date: 05/30/2019 9:31:52 AM Gender: F Tech: Location: [id number] Ref.Provider: KEANU HWANG Quality: Adequate Order Provider: KEANU HWANG Procedures: Vascular Report: Venous Duplex imaging was performed bilaterally in the lower extremities. The common femoral, femoral, popliteal, posterior tibial, peroneal veins were evaluated for patency, spontaneity and phasicity with Doppler, compression and augmentation maneuvers. Great saphenous vein proximal at the junction was evaluated with compression maneuvers. Indications: Other pulmonary embolism without acute cor pulmonale. Findings: Performing King Maker: Ingrid Herman RVT. Right: Duplex scan reveals dilated vein with echogenic, intraluminal, non-compressible material consistent with acute deep vein thrombosis in the right lower extremity. Deep veins involved include the right peroneal veins and soleal sinus veins. All other evaluated veins on the right are patent. Left: Venous Doppler signals in the left lower extremity are within normal limits for spontaneity and phasicity and respond normally to augmentation maneuvers in all imaged vessels. Unable to image the left femoral vein distal, popliteal, and calf veins due to bandaging. Provider Notification: Results called to Dr Alvarez. Time called 10:30am. Conclusions: 1. There is acute deep vein thrombosis involving vein(s) as noted above in the right lower extremity. 2. There is no evidence of acute deep vein thrombosis on the left. Unable to image the left femoral vein distal, popliteal, and calf veins due to bandaging. History: AF, HTN, Obesity. Previous Studies: No previous studies for comparison. Disclaimer: The signing physician has reviewed all images pertaining to this test. These images and this report will be retained in the patient chart by the Vascular Laboratory for the legally required time period. This chart constitutes the legal record of any testing performed. Electronically Signed By: 2019-05-30 10:29:15 CDT CC: CC: Assessment/Plan The patient is a 79 y.o. female with history of afib (prev controlled warfarin and coreg), T2DM, HTN, HLD, hypothyroidism, AYAD, and recent left distal femoral fracture s/p reduction who presented with acute PE and afib with RVR. She is now being transferred from SICU to floor for further management. #Acute bilateral pulmonary embolism Provoked in setting of recent orthopedic surgery and subtherapeutic warfarin for afib without bridging. INR on transfer was 1.6. CT PE at outside hospital showed bilateral pulmonary emboli (R > L)and she was started on heparin gtt. Increased NTproBNP, troponin, and TTE showed evidence of right heart strain. Lower extremity duplex showed acute asymptomatic DVT in right peroneal and soleal veins. They were unable to image left side due to bandages. Since the patient is doing well, transition anticoagulation from heparin to terminal manager therapy. Typically, recommended treatment provoked peripheral PEs includes direct oral anticoagulants (DOACs) for 3-6 months, however due to her BMI of 40, warfarin is a more appropriate treatment. She has good kidney function with Cr 0.6 and estimated CrCl 52.2 mL/min. Warfarin was previously therapeutic for her afib with maintenance dosing of 2 mg. - NTproBNP 5830 --> 7985; Troponin 0.036 -> 0.058 -> 0.110 -> 0.08 (stopped trending) - TTE: RV global mod hypokinesis, EF 38% (prev 51%) - Continue heparin gtt - Start warfarin with 5 mg load 05/30 and restart home 2mg 05/31 - Continue to monitor coags #Afib with RVR, acute on chronic - Holding home carvedilol 25mg BID -> started on PO metoprolol 25mg Q6 - Consider switching back to carvedilol before discharge since previously controlled and beneficialfor HTN - See above for anticoagulation #Left distal femoral fracture Ortho is following and recommends weight bearing at transfer as tolerated. Continue PT and OT therapy. - PT and OT - Fall precautions #Peripheral edema -Continue to monitor edema. Lasix 20 mg daily #T2DM Holding home metformin; Lantus 10u + MDSSI, consistent carb diet #HTN: Hold home HCTZ, amlodipine, losartan, and carvedilol #Hypothyroidism: Continue home levothyroxine 25 mcg #AYAD: Continue home CPAP, brought machine #HLD: Continue home lovastatin 10 mg Cecily Barbour Medical Student Cosigned by Katie Medley MD at 06/01/2019 12:39 PM CDT * Provider Query - Jennifer Lehman - 05/31/2019 5:32 PM CDT Please clarify the Pulmonary Embolism and document in the medical record and on the form below. Cor Pulmonale Present? _x_ Acute Cor Pulmonale ___ No Cor Pulmonale ___ Clinically unable to determine Clinical Indicators/Treatments: Pt w/ bilat Pes Documentation includes: R heart strain 2/2 PE -??Pro-BNP??5830 -> 7985 - not trending - Troponin downtrended - formal TTE - RV global mod hypokinesis with decreased LV EF (38% from 40s, mod , LAE) - CTM peripheral edema - restart lasix Provider Response: Use of terms such as likely, suspected, possible, or probable (associated with a specific diagnosisthat is being evaluated, monitored, or treated as if it exists) are acceptable and can be coded in the inpatient setting when documented at the time of discharge. This documentation will become part of the patient's medical record. Sincerely, Jennifer Lehman RN, [facility] Health Information Management * Provider Query - Jennifer Lehman - 05/31/2019 5:30 PM CDT Please specify an appropriate diagnosis, if significant, that supports the lab findings and document in the medical record and on the form below. Indicate Present on Admission Status. _x_Hypocalcemia, POA ___Clinically insignificant abnormal laboratory findings ___Other, specify below ___Clinically unable to determine Clinical Indicators/Treatments: Initial labs include: Calcium 8.3 Tx includes: Calcium gluconate 3g IVPB, con't to monitor Provider Response: Use of terms such as likely, suspected, possible, or probable (associated with a specific diagnosisthat is being evaluated, monitored, or treated as if it exists) are acceptable and can be coded in the inpatient setting when documented at the time of discharge. This documentation will become part of the patient???s medical record. Sincerely, Jennifer Lehman RN, [facility] Health Information Management * Plan of Care - Yesenia Ch PT - 05/31/2019 5:23 PM CDT Problem: Mobility Goal: LTG - Patient will demonstrate functional mobility with the following level of assist: Description: Independent Outcome: Progressing Problem: Transfers Goal: STG - Patient to transfer to and from sit to supine Description: SPV with HOB flat Outcome: Progressing Problem: PT Misc Goal: PT STG - Misc 1 Description: HEP: Independent Outcome: Progressing Problem: Transfers Goal: STG - Patient to transfer to and from sit to supine Description: Kaylee Outcome: Completed * Significant Event - Cuba Singleton MD - 05/31/2019 5:12 PM CDT CHUGG-OUT (SICU to OU/Floor Transfer) SICU HANDOFF Ms. Hodgson is a 79 y.o. female with PMH of Afib (warfarin and coreg), DM2 (no insulin), and recent L distal femur fx (s/p reduction w/ ortho 05/21/19) who presented as a transfer to the ICU for bilateral PE found incidentally after patient presented in Afib w/ RVR subtherapeutic on warfarin from rehab. Admitted for symptomatic PE and Afib with RVR. Since admission, she has had better rate control on metop 25mg q6h after a partial amiodarone load.She has been continued on a heparin gtt for anticoagulation. In talking with medicine consults, they decided they would control the bridging process to warfarin. Pt otherwise has been well, tolerating a diet, remains on 1L NC intermittently due to subjective dyspnea. Pt seen by ortho who agreed with her staying WBAT for LLE, wound appeared to be healing well. MD Consults: [] ACCS [] Cardiology [] Endo [] ENT [] GI [] Hand [] ID [] Neuro [] NSGY [] Ortho [] Pain [] PRS [] Renal [] Spine-NSGY [] Spine-Ortho [] Urology [] Other: ortho following peripherally Rehab/Ancillary Consults: [] BI (trauma patient with LOC) [] Chemical dependency [x] PT [x] OT [] Speech [] PM&R [] SMART (stroke patient) [] Wound care SITUATIONAL AWARENESS PERTINENT physical exam findings on day of transfer: LLE w/ healing surgical wound. Dyspnea w/ clear breath sounds b/l. New findings that warrant follow-up and pending studies: [] Yes--describe: [x] None Important changes to home medications: [x] Home medications stopped/on hold: warfarin, to restart via medicine. Coreg held, to restart if pressure allows in AM. Norvasc/HCTZ held. Ambien/xanax held. [] Dose changes: [] No notable changes New medications to consider stopping prior to hospital discharge: [] New antipsychotic (started for ICU delirium): [x] Other: hep gtt Disposition/Planning: Eval by LTAC/Rehab/SNF [] Yes [x] No [] N/A Facility: [facility]: CURRENT ANTICOAGULANT THERAPY [] VTE Prophylaxis [] Heparin [] Lovenox [] SCDs [] IVC Filter [] Other: [] None - Reason: [] Therapeutic Anticoagulation Indication: b/l PE [x] Heparin [] Lovenox [] Other: Any previous issues with tolerating anticoagulants? [x] Yes [] No Describe:subtherapeutic on warfarin Venous duplex performed? [x] Yes ---> Most recent findings: RLE DVT in popliteal/soleal veins [] No CURRENT ANTIMICROBIAL THERAPY Note - Planned duration may be a number of days or a criterion such as while drain in place or until blood cultures negative [x] N/A - No current antimicrobial therapy LINES/DRAINS/AIRWAYS PRESENT Peripheral IV 05/26/19 20 G Left Antecubital (Active) Number of days: 5 Peripheral IV 05/30/19 20 G Left Antecubital (Active) Number of days: 1 Peripheral IV 05/30/19 20 G Left Forearm (Active) Number of days: 1 TO-DO LIST PRIOR TO TRANSFER Make sure the following monitors or precautions are ordered if indicated: Telemetry [x] Yes [] No Continuous pulse oximetry [x] Yes [] No AYAD precautions [x] Yes [] No Difficult airway [] Yes [x] No Trach orders/signage [] Yes [x] No Size/Type: Date placed: Did patient require insulin while in SICU? [x] Yes, scheduled insulin [] Yes, sliding scale only ----> d/c SICU insulin and order floor sliding scale insulin [] No ----> d/c SICU insulin and blood glucose checks Is the patient receiving TPN? [] Yes ----> [] Today's bag is ordered [x] No Central line necessary? [] Yes [] No [x] N/A Groin line necessary? [] Yes [] No [x] N/A [x] Discontinue K/Mg/Phos repletion order (if applicable) [x] Discontinue stress ulcer prophylaxis if no longer indicated [x] Signed & Held orders reconciled (all orders either released or discontinued) [x] Sign-out was called to Dr. Adkins of the Medicine service. QUESTIONS? Call [phone] Cosigned by Miguel Centeno MD PhD at 05/31/2019 6:13 PM CDT * ECIN Note - Suzie Sultana SALESPERSON [employer] - 05/31/2019 4:53 PM CDT Images from the original note were not included. Patient Information: Wound Info Only Patient Lines/Drains/Airways Status Active Wound / Pressure ulcer / Roy / Negative Pressure Wound None , Vitals Info Only Vital Signs 05/29 0700 - 05/30 0659 05/30 07 - 05/30 1653 Most Recent Temp (??C) 36.7 - 36.9 36.8 - 37 37 (98.6) Pulse 94 - 135 93 - 125 114 Resp 14 - 29 15 - 24 17 SpO2 (%) 90 - 95 92 - 98 95 BP 99/64 - 142/99 92/64 - 134/103 113/100 MAP (mmHg) 59 - 120 70 - 118 106 , Oxygen Info Only Default Flowsheet Data (most recent) Endurance Tests No documentation. Default Flowsheet Data (last 48 hours) Oxygen Row Name 05/31/19 1600 05/31/19 1500 05/31/19 1424 05/31/19 1400 05/31/19 1355 Oxygen Therapy/Pulse Ox O2 Therapy None (Room air) None (Room air) -- Supplemental oxygen -- O2 Del Method -- -- -- Nasal cannula -- O2 Flow Rate (L/min) -- -- -- 1 L/min -- SpO2 95 % 97 % 95 % 94 % 92 % Patient Activity At rest At rest -- At rest -- Row Name 05/31/19 1300 05/31/19 1200 05/31/19 1100 05/31/19 1038 05/31/19 1022 Oxygen Therapy/Pulse Ox O2 Therapy Supplemental oxygen Supplemental oxygen Supplemental oxygen Supplemental oxygen -- O2 Del Method Nasal cannula Nasal cannula Nasal cannula Nasal cannula -- O2 Flow Rate (L/min) 1 L/min 1 L/min 1 L/min 1 L/min -- SpO2 94 % 93 % 93 % 97 % 94 % Patient Activity At rest At rest At rest At rest -- Row Name 05/31/19 1009 05/31/19 1000 05/31/19 0900 05/31/19 0840 05/31/19 0830 Oxygen Therapy/Pulse Ox O2 Therapy Supplemental oxygen Supplemental oxygen Supplemental oxygen -- Supplemental oxygen O2 Del Method Nasal cannula Nasal cannula Nasal cannula -- Nasal cannula O2 Flow Rate (L/min) 1 L/min 1 L/min 1 L/min -- 1 L/min SpO2 94 % 95 % 92 % 94 % 97 % Patient Activity At rest At rest At rest -- At rest Row Name 05/31/19 0800 05/31/19 0724 05/31/19 0700 05/31/19 0600 05/31/19 0500 Oxygen Therapy/Pulse Ox O2 Therapy Supplemental oxygen Supplemental oxygen Supplemental oxygen -- -- O2 Del Method Nasal cannula Nasal cannula NPPV -- -- O2 Flow Rate (L/min) 2 L/min 2 L/min -- -- -- SpO2 94 % 98 % 93 % 91 % 90 % Patient Activity At rest At rest At rest -- -- Row Name 05/31/19 0400 05/31/19 0300 05/31/19 0200 05/31/19 0100 05/31/19 0000 Oxygen Therapy/Pulse Ox SpO2 90 % 93 % 93 % 90 % 93 % Row Name 05/30/19 2300 05/30/19 2200 05/30/19 2000 05/30/19 1900 05/30/19 1800 Oxygen Therapy/Pulse Ox O2 Therapy -- -- -- Supplemental oxygen Supplemental oxygen O2 Del Method -- -- -- Nasal cannula Nasal cannula O2 Flow Rate (L/min) -- -- -- 2 L/min 3 L/min SpO2 90 % 94 % 94 % 95 % 95 % Patient Activity -- -- -- At rest At rest Row Name 05/30/19 1745 05/30/19 1700 05/30/19 1600 05/30/19 1500 05/30/19 1400 Oxygen Therapy/Pulse Ox O2 Therapy -- Supplemental oxygen Supplemental oxygen Supplemental oxygen Supplemental oxygen O2 Del Method -- Nasal cannula Nasal cannula Nasal cannula Nasal cannula O2 Flow Rate (L/min) -- 3 L/min 3 L/min 3 L/min 3 L/min SpO2 95 % 95 % 94 % 93 % 94 % Patient Activity -- At rest At rest At rest At rest Row Name 05/30/19 1300 05/30/19 1200 05/30/19 1100 05/30/19 1030 05/30/19 1000 Oxygen Therapy/Pulse Ox O2 Therapy Supplemental oxygen Supplemental oxygen Supplemental oxygen -- Supplemental oxygen O2 Del Method Nasal cannula Nasal cannula Nasal cannula -- Nasal cannula O2 Flow Rate (L/min) 3 L/min 3 L/min 3 L/min -- 3 L/min SpO2 95 % 94 % 93 % 95 % 93 % Patient Activity At rest At rest At rest -- At rest Row Name 05/30/19 0900 05/30/19 0850 05/30/19 0800 05/30/19 0700 05/30/19 0600 Oxygen Therapy/Pulse Ox O2 Therapy Supplemental oxygen -- Supplemental oxygen Supplemental oxygen Supplemental oxygen O2 Del Method Nasal cannula -- Nasal cannula Nasal cannula Nasal cannula O2 Flow Rate (L/min) 3 L/min -- 3 L/min 3 L/min 3 L/min SpO2 94 % 94 % 94 % 92 % 96 % Patient Activity At rest -- At rest At rest At rest Row Name 05/30/19 0510 05/30/19 0500 05/30/19 0400 05/30/19 0300 05/30/19 0200 Oxygen Therapy/Pulse Ox O2 Therapy Supplemental oxygen Supplemental oxygen Supplemental oxygen Supplemental oxygen Supplemental oxygen O2 Del Method Nasal cannula Nasal cannula -- -- -- O2 Flow Rate (L/min) 3 L/min 3 L/min 3 L/min 3 L/min 3 L/min SpO2 97 % 97 % 97 % 95 % 96 % Patient Activity At rest At rest At rest At rest At rest Row Name 05/30/19 0100 05/30/19 0002 05/30/19 0000 05/29/19 2300 05/29/19 2230 Oxygen Therapy/Pulse Ox O2 Therapy Supplemental oxygen Supplemental oxygen Supplemental oxygen Supplemental oxygen Supplemental oxygen O2 Del Method Nasal cannula Nasal cannula Nasal cannula Nasal cannula Nasal cannula O2 Flow Rate (L/min) 3 L/min 3 L/min 3 L/min 3 L/min 3 L/min SpO2 97 % 97 % (!) 89 % 95 % 96 % Patient Activity At rest At rest At rest At rest At rest Row Name 05/29/19 2200 05/29/19 2118 Oxygen Therapy/Pulse Ox O2 Therapy Supplemental oxygen Supplemental oxygen O2 Del Method Nasal cannula Nasal cannula O2 Flow Rate (L/min) 3 L/min 4 L/min SpO2 96 % -- Patient Activity At rest At rest , NPPV Settings last 72 hours NPPV Last 72 hr Documentation (last 72 hours) Adult NPPV/NIV Row Name 05/30/19 2244 05/31/19 0049 05/31/19 0502 NPPV Information NPPV Mode Auto-CPAP Auto-CPAP Auto-CPAP NPPV Type Home Unit Home Unit Home Unit NPPV Settings BiPAP/CPAP Interface Nasal pillows -- -- Skin Intact Yes -- -- Oxygen Bleed-In 2 L/min -- 2 L/min NPPV Auto-C Settings Max CPAP (cmH2O) 20 cm H20 20 cm H20 20 cm H20 Min CPAP (cmH2O) 7 cm H20 7 cm H20 7 cm H20 , Adult Vent Settings last 72 hours Ventilator Documentation last 72 hours (last 72 hours) Ventilator Documentation No documentation. * [facility] Note - Suzie Sultana LCSW - 05/31/2019 4:53 PM CDT Patient Information: OT Eval and Treat Last 72 Hours OT Evaluation Row Name 05/31/19 1354 Chart Reviewed Yes -TP Session Type Evaluation -TP OT Received On 05/31/19 -TP Safe Environment Arm Band Checked;Call Light within Reach;Notified RN;Patient found sitting in Chair;Overbed Table within Reach -TP Subjective Agreeable to Therapy -TP Family/Caregiver Present No -TP Precautions Fall risk -TP Weight Bearing Restrictions Yes -TP LLE Weight Bearing WBAT -TP Type of Home House -TP Home Layout One level -TP Home Access Stairs to enter without rails -TP Entrance Stairs-Rails None -TP Entrance Stairs-Number of Steps 1 -TP Home Mobility Equipment Wheeled walker;Wheelchair-manual;Single point cane -TP Additional Comments Patient denies use of mobility device at baseline -TP Level of [place] Independent with ADLs;Independent functional transfers;Independent with ambulation;Independent with homemaking with ambulation -TP Lives With Spouse -TP Receives Help From 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 -TP Driving Yes -TP ADL Assistance Independent -TP Instrumental ADL (IADL) Assistance Independent -TP Fall within the last 6 months Yes -TP Fall within the last 6 months comment Patient reports one fall 2/2 missed step resulting in femur fx leading to this admission -TP Grooming: Where assessed Chair -TP Grooming: Level of assistance Moderate Assist Supervision task, NT standing -TP Grooming: Assistance with Increased time to complete;Safety setup of ADL items, stands at baseline -TP LE Dressing: Where assessed Chair -TP LE Dressing: Level of assistance Maximum Assist Max A task, NT standing -TP LE Dressing: Assistance with Supervision/safety;Increased time to complete;Don/doff R sock;Don/doffL sock;Thread RLE into pants;Thread LLE into pants;Thread LLE into underwear;Thread RLE into underwear;Pull up over hips;Fasteners setup of ADL items -TP Toilet Transfer From -- chair -TP Toilet Transfer Type To -TP Toilet Transfer to Standard bedside commode simulated with chair -TP Toilet Transfer Technique -- sit>stand only for safety -TP Toilet Transfer: Equipment Hand hold -TP Toilet Transfers Moderate assistance -TP Toilet Transfers Comments assist for force production, maintaining balance, and controlled descent.Verbal cues for positioning of hands and feet to assist with transfer. -TP Pain Assessment 0-10 -TP Pain Score 3 -TP Pain Location Leg -TP Pain Orientation Left -TP Overall Cognitive Status Impaired -TP Arousal/Alertness Alert -TP Attention Span Appears intact -TP Memory Decreased short term memory -TP Current communication Appears Intact -TP Orientation Oriented X4 (person, place, time, situation) -TP Following Commands Follows all commands and directions without difficulty -TP Safety Judgment Good awareness of safety precautions -TP Awareness of Errors Assistance required to identify errors made;Assistance required to correct errors made -TP Insight Decreased awareness of deficits -TP Problem Solving Assistance required to implement solutions;Assistance required to generate solutions;Assistance required to identify errors made -TP Compliance/Behavior Easy to engage -TP Perseveration Not present -TP Light Touch WFL -TP Serial Opposition WFL -TP Balance Yes -TP Static Sitting-Balance Support Bilateral upper extremity supported;Feet supported -TP Static Sitting-Sitting Surface Chair -TP Static Sitting-Level of Assistance Close supervision -TP Static Sitting-Comment/# of Minutes sitting unsupported at edge of chair -TP Static Standing-Balance Support Bilateral upper extremity supported on therapist's forearms -TP Static Standing-Standing Surface Floor -TP Static Standing-Level of Assistance Minimum assistance -TP Static Standing-Comment/# of Minutes assist for steadying and force production -TP Bed Mobility No up in chair -TP Transfer Yes -TP Transfer From 1 Sit -TP Transfer Type 1 To and from -TP Transfer to 1 Stand -TP Technique 1 Sit to stand;Stand to sit -TP Transfer Device 1 Hand held assist -TP Transfer Level of Assistance 1 Moderate Assist -TP Trials/Comments 1 assist for force production, maintaining balance, and controlled descent. Verbal cues for positioning of hands and feet to assist with transfer. -TP RUE Assessment WFL -TP LUE Assessment WFL -TP Comments Patient at inpatient rehab prior to this admission; recommend return to rehab. -TP Problem List Decreased endurance;Decreased balance;Decreased functional mobility;Decreased ADL independence;Decreased IADL independence -TP Barriers to Discharge Current Mobility Status -TP Plan Plan of care initiated;If this is the last note, consider this the discharge summary -TP OT Recommendation Inpatient Rehab Facility -TP OT Frequency 3-5x/wk -TP Treatment/Interventions ADL/IADL retraining;Balance Training;Bed mobility;Endurance training;Functional activity;Functional mobility training;Functional transfer training;Strengthening;Therapeutic act ivity;Transfer training;Therapeutic exercise -TP OT - Next Appointment 06/02/19 -TP OT - OK to Discharge No -TP OT Evaluation Complete Yes -TP User Montgomery (r) = Recorded By, (t) = Taken By, (c) = Cosigned By Initials Name Effective Dates TP Terrence Jaramillo, OT 05/18/19 - OT Treatment No documentation. OT Notes (Notes from 05/29/19 through 05/31/19) No notes of this type exist for this encounter. , PT Eval and Treat Last 72 Hours PT Evaluation Row Name 05/30/19 0843 Chart Reviewed Yes -MH (r) JT (c) Session Type Evaluation -MH (r) JT (c) Safe Environment Arm Band Checked;Notified RN;Patient found in Supine -MH (r) JT (c) Subjective Agreeable to Therapy -MH (r) JT (c) Subjective Comment Pt is willing to do PT but not feeling well, nervous about getting up -MH (r) JT(c) Family/Caregiver Present Yes present for second portion of visit -MH (r) JT (c) Physical Therapy-Patient Goal To get more mobile -MH (r) JT (c) Precautions Fall risk;AYAD -MH (r) JT (c) Weight Bearing Restrictions Yes -MH (r) JT (c) LLE Weight Bearing WBAT -MH (r) JT (c) Type of Home House -MH (r) JT (c) Home Layout One level -MH (r) JT (c) Home Access Stairs to enter without rails -MH (r) JT (c) Entrance Stairs-Rails None - (r) JT (c) Entrance Stairs-Number of Steps 2 -MH (r) JT (c) Home Mobility Equipment None -MH (r) JT (c) Level of [place] Independent with ADLs;Independent with ambulation -MH (r) JT (c) Lives With Spouse -LESVIA (r) JT (c) Vocational/Occupation Retired -MH (r) JT (c) Fall within the last 6 months Yes - (r) JT (c) Fall within the last 6 months comment Single fall leading tor recent admission and L femur fracture, occurred when she was carrying something down stairs and she missed a step -LESVIA (r) JT (c) Prior Function Comments PLOF of prior to recent fall resulting in L femur fracture - (r) JT (c) Pain Assessment 0-10 - (r) JT (c) Pain Score 0 - No pain - (r) JT (c) Arousal/Alertness Appropriate responses to stimuli - (r) JT (c) Orientation Oriented X4 (person, place, time, situation) - (r) JT (c) Following Commands Follows all commands and directions without difficulty -MH (r) JT (c) Endurance Deficit Yes - (r) JT (c) Endurance Deficit Description Dyspnea on exertion following supine > sit transition limiting further mobility - (r) JT (c) Balance Yes - (r) JT (c) Static Sitting-Balance Support Bilateral upper extremity supported;Feet supported -MH (r) JT (c) Static Sitting-Sitting Surface Bed - (r) JT (c) Static Sitting-Level of Assistance Contact guard - (r) JT (c) ICU Mobility Scale 2 -MH (r) JT (c) Rolling 0 -MH (r) JT (c) Supine to Sit 3 -MH (r) JT (c) Sitting 5 -MH (r) JT (c) Sit to Stand 0 -MH (r) JT (c) Ambulation or Wheelchair Mobility? Ambulation -MH (r) JT (c) Ambulation 0 -MH (r) JT (c) Bed Mobility Yes -MH (r) JT (c) Bed Mobility From 1 Supine -MH (r) JT (c) Bed Mobility Type 1 To -MH (r) JT (c) Bed Mobility to 1 Edge of bed -MH (r) JT (c) Level of Assistance 1 Moderate Assist -MH (r) JT (c) Bed Mobility Comments 1 ModA for trunk elevation -MH (r) JT (c) Transfer Yes -MH (r) JT (c) Transfer From 1 Bed -MH (r) JT (c) Transfer Type 1 To -MH (r) JT (c) Transfer to 1 Chair with arms -MH (r) JT (c) Technique 1 To right -MH (r) JT (c) Transfer Device 1 Mechanical device -MH (r) JT (c) Transfer Level of Assistance 1 Dependent -MH (r) JT (c) Trials/Comments 1 Based on pt's elevated dyspnea with supine>sit transition, deferred further mobility at this time -MH (r) JT (c) Ambulation No -MH (r) JT (c) Stairs No -MH (r) JT (c) RLE Assessment X -MH (r) JT (c) RLE Overall Strength Within Functional Limits Full heel slide AROM, able to perform quad set -MH (r) JT (c) R Ankle Dorsiflexion 5/5 -MH (r) JT (c) R Ankle Plantar Flexion 5/5 -MH (r) JT (c) LLE Assessment X -MH (r) JT (c) LLE Overall Strength Deficits;Due to pain Unable perform full AROM heel slide, quad set -MH (r) JT (c) L Knee Extension 3-/5 Difficulty with quad set -MH (r) JT (c) L Ankle Dorsiflexion 5/5 -MH (r) JT (c) L Ankle Plantar Flexion 5/5 -MH (r) JT (c) PT Treatment/Exercise Comments Ankle pumps x10, quad sets x10 -MH (r) JT (c) Other PT Comments Dyspnes at rest /10, with supine>sit 8-9/10. Slow to resolve. Stable vitals, but further mobility deferred. -MH (r) JT (c) How much difficulty does the patient have: Turning over in bed 2 - (r) JT (c) How much difficulty does the patient currently have: Sitting down and standing up from a chair witharms? 2 - (r) JT (c) How much difficulty does the patient have: Moving from lying on back to sitting on the side of the bed? 2 - (r) JT (c) How much difficulty does the patient have: Moving to and from a bed to a chair including wheelchair? 2 - (r) JT (c) How much help does the patient currently need: Walk in hospital room? 2 - (r) JT (c) How much help from another person does the patient currently need: Climbing 3-5 steps with a railing? 1 - (r) JT (c) Total Score (range 6-24) 11 - Score Interpretation 30.25 - (r) JT (c) Prognosis Good - (r) JT (c) Problem List Decreased strength;Decreased endurance;Impaired balance;Decreased mobility;Pain - (r) JT (c) Problem List Comments Patient with diagnosis of bilateral PE's presents with deficits in bed mobility, transfers, and ambulation due to impairments in strength, activity tolerance, and dyspnea on exertion. These deficits prevent full participation in the following activity(s): independent householdand community mobility - (r) JT (c) Barriers to Discharge Current Mobility Status - (r) JT (c) Plan Plan of care initiated;If this is the last note, consider this the discharge summary - (r) JT (c) PT Recommendation/Plan Long-Term Facility - (r) JT (c) PT Frequency 3-5x/wk - (r) JT (c) Treatment/Interventions Balance Training;Bed mobility;Gait training;Endurance training;Strengthening;Therapeutic exercise;Transfer training - (r) JT (c) PT Equipment Recommended None TBD at next level of care - (r) JT (c) PT Evaluation Complete Yes - (r) JT (c) User Montgomery (r) = Recorded By, (t) = Taken By, (c) = Cosigned By Initials Name Effective Dates Nadiya Taylor 03/23/19 - JGudelia Warner, PT 09/23/19 - PT TREATMENT (last 168 hours) PT Treatment No documentation. PT Notes (Notes from 05/29/19 through 05/31/19) 05/30/2019 3:35 PM Progress Notes signed by Val Warner, PT , BAR STAFF Eval and Treat Last 72 Hours BAR STAFF Evaluation No documentation. BAR STAFF Treatment No documentation. Clinical Swallow Study No documentation. BAR STAFF Notes (Notes from 05/29/19 through 05/31/19) No notes of this type exist for this encounter. * [facility] Note - Suzie Sultana LCSW - 05/31/2019 4:52 PM CDT Images from the original note were not included. Patient Information: Comprehensive Nursing Documentation Attending Provider: Keanu Hwang MD Allergies: Mili Inhibitors, Citalopram, Lisinopril Isolation: None Infection: None Code Status: FULL Ht: 165.1 cm (5' 5 ) Wt: 109 kg (240 lb 4.8 oz) Admission Cmt: None Principal Problem: Atrial fibrillation with RVR ([facility]) [I48.91] Intake/Output 05/29/19 0700 - 05/30/19 0659 05/30/19 0700 - 05/31/19 0659 05/31/19 0700 - 06/01/19 0659 Total 5509-9760 3536-3131 7534-6633 Total 9382-1060 7616-0062 0638-4042 Total Intake (ml) 821.4 335 473.8 930.2 1739 410 300 -- 710 Output (ml) 910 601 848 1905 2500 435 -- -- 435 Net (ml) -88.6 -245 -396.2 -119.8 -761 -25 300 -- 275 Last Weight 109 kg (240 lb 4.8 oz) -- -- -- -- -- -- -- -- Patient Lines/Drains/Airways Status Active Airway / Central venous catheter / Drain / Epidural cathether / Intraosseous line / Peripherally inserted central catheter / Peripheral intravenous line / Arterial line Name: Placement date: Placement time: Site: Days: Peripheral IV 05/26/19 20 G Left Antecubital 05/26/19 0800 Antecubital 5 Peripheral IV 05/30/19 20 G Left Antecubital 05/30/19 0447 Antecubital 1 Peripheral IV 05/30/19 20 G Left Forearm 05/30/19 1400 Forearm 1 Patient Lines/Drains/Airways Status Active Wound / Pressure ulcer / Roy / Negative Pressure Wound None Mejia Fall Risk Most Recent Value Auto Low/High - if selected proceed to interventions High risk-per unit/hospital protocol ............filed at 05/31/2019 0700 Mejia Fall Risk Score 50 ............filed at 05/31/2019 0700 Vital Signs 05/29 0700 - 05/30 0659 05/30 07 - 05/30 1653 Most Recent Temp (??C) 36.7 - 36.9 36.8 - 37 37 (98.6) Pulse 94 - 135 93 - 125 114 Resp 14 - 29 15 - 24 17 SpO2 (%) 90 - 95 92 - 98 95 BP 99/64 - 142/99 92/64 - 134/103 113/100 MAP (mmHg) 59 - 120 70 - 118 106 Non Violent Restraint Most Recent Value Restraint Alternative Less Restrictive Alternative Increased frequency of nursing rounds, Comfort Measures, Symptom Management filed at 05/31/2019 0700 Restraint Reason Restraint Type (NV) Every 2 Hours Default Flowsheet Data (most recent) Endurance Tests No documentation. Default Flowsheet Data (most recent) Balance Tests - 05/31/19 1354 Tinetti Sitting Balance 1 Arises 0 Attempts to Arise 0 Immediate Standing Balance (First 5 Seconds) 0 Standing Balance 0 Nudged 0 Eyes Closed 0 Turned 360 Degrees: Steadiness 0 Turned 360 Degrees: Continuity of Steps 0 Sitting Down 0 Balance Score 1 Nursing Nutrition Feeding Level of Assistance 05/30 0800 Needs set up 05/29 1900 Needs set up Appetite 05/30 0800 Poor 05/29 1900 Poor Nursing Mobility Activity 05/30 1600 Resting in bed 05/30 1500 Chair 05/30 1400 Chair 05/30 1300 Chair 05/30 1200 Chair 05/30 1100 Chair 05/30 1000 Resting in bed 05/30 0900 Resting in bed 05/30 0800 Resting in bed 05/30 0700 Resting in bed 05/29 1900 Turn 05/29 1800 Resting in bed 05/29 1700 Resting in bed 05/29 1600 Resting in bed 05/29 1500 Chair 05/29 1400 Chair 05/29 1300 Resting in bed 05/29 1200 Chair 05/29 1100 Chair 05/29 1000 Resting in bed 05/29 0900 Resting in bed 05/29 0800 Resting in bed 05/29 0700 Resting in bed 05/29 0500 Turn 05/29 0400 Sleeping 05/29 0300 Turn 05/29 0100 Turn 05/29 0000 Sleeping 05/28 2300 Turn 05/28 2116 Resting in bed Level of Assistance 05/30 1100 Maximum assist, patient does 25-49% 05/29 1900 Maximum assist, patient does 25-49% 05/29 1400 Dependent, patient does less than 25% Assistive Device 05/30 1600 Mechanical lift 05/30 1100 Mechanical lift 05/29 1400 Mechanical lift Repositioned 05/30 1600 Supine;Turns self;Pillow support 05/30 1500 Up in chair 05/30 1400 Up in chair 05/30 1300 Up in chair 05/30 1200 Up in chair 05/30 1100 Up in chair 05/30 0700 Supine;Pillow support 05/30 0500 Refused by patient;Supine;Semi Casanova's;Pillow support 05/30 0300 Supine;Semi Casanova's;Pillow support 05/30 0100 Refused by patient;Supine;Semi Casanova's;Pillow support 05/29 2300 Refused by patient;Supine;Semi Casanova's;Pillow support 05/29 2100 Supine;Semi Casanova's;Pillow support 05/29 1900 Left side;Semi Casanova's;Pillow support 05/29 1600 Supine;Pillow support 05/29 1500 Up in chair 05/29 1400 Up in chair 05/29 1300 Supine;Pillow support 05/29 1200 Up in chair 05/29 1100 Up in chair 05/29 0700 Left side;Pillow support 05/29 0500 Semi Casanova's;Pillow support 05/29 0300 Left side;Pillow support 05/29 0100 Semi Casanova's;Pillow support 05/28 2300 Right side;Pillow support 05/28 2116 Semi Casanova's;Pillow support Positioning Frequency 05/30 1600 Able to turn self 05/30 0700 Able to turn self 05/29 1900 Every 2 hours 05/29 0700 Able to turn self 05/29 0100 Every 2 hours 05/28 2300 Every 2 hours 05/28 2116 Every 2 hours Head of Bed Elevated 05/30 1600 HOB 30 05/30 0700 HOB 30 05/29 1900 HOB 30 05/29 0700 HOB 30 05/28 2300 HOB 30 05/28 2116 HOB 30 Heels/Feet 05/30 1600 Heels elevated off bed 05/30 0700 Heels elevated off bed 05/29 1900 Heels elevated off bed 05/29 0700 Heels elevated off bed 05/28 2300 Heels elevated off bed 05/28 2116 Heels elevated off bed Range of Motion 05/30 1600 Active;All extremities 05/30 0700 Active;All extremities 05/29 1900 All extremities;Active;Passive 05/29 0700 Active;All extremities Type of Device 05/30 1600 Mechanical compression 05/30 1500 Mechanical compression 05/30 1400 Mechanical compression 05/30 1300 Mechanical compression 05/30 1200 Mechanical compression 05/30 1100 Mechanical compression 05/30 1000 Mechanical compression 05/30 0900 Mechanical compression 05/30 0800 Mechanical compression 05/30 0700 Mechanical compression 05/29 1900 Mechanical compression 05/29 1800 Mechanical compression 05/29 1700 Mechanical compression 05/29 1600 Mechanical compression 05/29 1500 Mechanical compression 05/29 1400 Mechanical compression 05/29 1300 Mechanical compression 05/29 1200 Mechanical compression 05/29 1100 Mechanical compression 05/29 1000 Mechanical compression 05/29 0900 Mechanical compression 05/29 0800 Mechanical compression 05/29 0700 Mechanical compression 05/28 2116 Mechanical compression Mechanical Compression Site 05/30 1600 Right lower extremity 05/30 1500 Right lower extremity 05/30 1400 Right lower extremity 05/30 1300 Right lower extremity 05/30 1200 Right lower extremity 05/30 1100 Right lower extremity 05/30 1000 Right lower extremity 05/30 0900 Right lower extremity 05/30 0800 Right lower extremity 05/30 0700 Right lower extremity 05/29 1900 Right lower extremity 05/29 1800 Right lower extremity 05/29 1700 Right lower extremity 05/29 1600 Right lower extremity 05/29 1500 Right lower extremity 05/29 1400 Right lower extremity 05/29 1300 Right lower extremity 05/29 1200 Right lower extremity 05/29 1100 Right lower extremity 05/29 1000 Right lower extremity 05/29 0900 Right lower extremity 05/29 0800 Right lower extremity 05/29 0700 Right lower extremity 05/28 211 Bilateral Mechanical Compression Type 05/30 1600 IPC/SCD 05/30 1500 IPC/SCD 05/30 1400 IPC/SCD 05/30 1300 IPC/SCD 05/30 1200 IPC/SCD 05/30 1100 IPC/SCD 05/30 1000 IPC/SCD 05/30 0900 IPC/SCD 05/30 0800 IPC/SCD 05/30 0700 IPC/SCD 05/29 1900 IPC/SCD 05/29 1800 IPC/SCD 05/29 1700 IPC/SCD 05/29 1600 IPC/SCD 05/29 1500 IPC/SCD 05/29 1400 IPC/SCD 05/29 1300 IPC/SCD 05/29 1200 IPC/SCD 05/29 1100 IPC/SCD 05/29 1000 IPC/SCD 05/29 0900 IPC/SCD 05/29 0800 IPC/SCD 05/29 0700 IPC/SCD 05/28 211 IPC/SCD Mechanical Compression Status 05/30 1600 On 05/30 1500 On 05/30 1400 On 05/30 1300 On 05/30 1200 On 05/30 1100 On 05/30 1000 On 05/30 0900 On 05/30 0800 On 05/30 0700 On 05/29 1900 On 05/29 1800 On 05/29 1700 On 05/29 1600 On 05/29 1500 On 05/29 1400 On 05/29 1300 On 05/29 1200 On 05/29 1100 On 05/29 1000 On 05/29 0900 On 05/29 0800 On 05/29 0700 On 05/29 2115 On , Head to Toe Assess Default Flowsheet Data (most recent) Complex Assessment - 05/31/19 1600 Cardiac Cardiac Rhythm A-fib Surgical Site 05/25/19 Left Knee Site Properties Date First Assessed: 05/25/19 Time First Assessed: 1250 Location Orientation: Left Location: Knee * Plan of Care - Suzie Sultana LCSW - 05/31/2019 4:49 PM CDT Problem: Patient remains in the ICU and is not medically stable for discharge at this time. Chart reviewed and patient discussed in DCAM rounds by team. Night Time Babysitter remains involved for discharge planning and placement needs. Intervention/Plan: Per chart review patient was recently discharged to [facility] [phone]. She left [facility] on 05/27/2019. SW has a prior SW assessment in chart from 05/26/2019 by BACKPACKERS MANAGER Dolores Florez. ?? Patient will be screened and followed by CM as well as SW for??discharge planning??needs and assistance. ??Therapy recommendations currently pending assessment. ??CM will assist with coordinating home health care and DME needs as guided by team. ??SW will assist CM as needed and will also offer education on continued care facility options, insurance coverage &??criteria should facility placement be recommended by team. ? Patient has been referred to appropriate level of care as recommended by team--either skilled/rehab/LTAC--facilities of choice and is being screened/followed for potential admission when appropriate by: [place] Alex Foster S [phone] Gloria in Admissions [phone] per patient reques t. She does not want to return to [facility]. Gloria at [facility] will need to review patient and verify whether facility is in network with insurance [employer]. Patient's primary contact is: Ravi [phone]. Goal: Night Time Babysitter to continue to follow for discharge planning assistance, formation of a safe discharge plan, and emotional support for family as needed. Suzie Sultana, [facility] [phone] * Plan of Care - Britney Pathak RN - 05/31/2019 2:17 PM CDT Problem: Lack of Knowledge: Goal: Ability to state ways to decrease the risk of falls will improve Outcome: Progressing Problem: Safety: Goal: Will remain free from falls Outcome: Progressing Goal: Will remain free from injury from falls Outcome: Progressing Goal: Will remain free from falls and injury in home environment Outcome: Progressing Problem: Lack of Knowledge: Goal: Ability to develop a pain control plan will improve Outcome: Progressing Goal: Ability to identify pain intensity on a pain scale and rate it consistently will improve Outcome: Progressing Goal: Ability to notify healthcare provider of pain before it becomes unmanageable or unbearable will improve Outcome: Progressing Problem: Medication: Goal: Satisfaction with pain management regimen will improve Outcome: Progressing Problem: Activity: Goal: Ability to avoid complications of mobility impairment will improve Outcome: Progressing Problem: Lack of Knowledge: Goal: Knowledge of the prescribed therapeutic regimen will improve Outcome: Progressing Goal: Ability to demonstrate proper wound care will improve Outcome: Progressing Problem: Health Behavior: Goal: Identification of resources available to assist in meeting health care needs will improve Outcome: Progressing Problem: Nutritional: Goal: Nutritional status will improve Outcome: Progressing Problem: Cardiac: Goal: Knowledge of VTE will improve by discharge Outcome: Progressing Problem: Lack of Knowledge: Goal: Knowledge of the prescribed therapeutic regimen will improve Outcome: Progressing Problem: Activity: Goal: Ability to ambulate will improve Outcome: Progressing Goal: Muscle strength will improve Outcome: Progressing Goal: Range of joint motion will improve Outcome: Progressing Problem: Safety: Goal: Ability to appropriately use an adaptive device for ambulation will improve Outcome: Progressing Goal: Ability to safely and independently change position in bed will improve Outcome: Progressing Goal: Ability to safely transfer will improve Outcome: Progressing Problem: Activity: Goal: Ability to tolerate increased activity will improve Outcome: Progressing Goal: Ability to participate in self-care as condition permits will improve Outcome: Progressing Problem: Cardiac: Goal: Ability to maintain an adequate cardiac output will improve Outcome: Progressing Goal: Will show no evidence of cardiac arrhythmias Outcome: Progressing Goal: Complications related to the disease process, condition or treatment will be avoided or minimized Outcome: Progressing Problem: Lack of Knowledge: Goal: Knowledge of the prescribed therapeutic regimen will improve Outcome: Progressing Goal: Knowledge of disease or condition will improve Outcome: Progressing Goal: Ability to identify and utilize available resources and services will improve Outcome: Progressing Problem: Activity: Goal: [...] to fullest extent possible Outcome: Progressing Problem: Health Behavior: Goal: Understanding of discharge needs will improve Outcome: Progressing Goals: Clinical Goals for the Shift: hemodynamic stability, OOBTC, pulmonary hygiene * Plan of Care - Britney Baxter RRT - 05/31/2019 2:46 AM CDT Patient remained on home unit Auto-CPAP overnight. RT will continue to monitor * Plan of Care - Tiara Michael RN - 05/30/2019 9:56 PM CDT Goals: Clinical Goals for the Shift: respiratory/sleep hygiene, monitor VS/labwork/surgical site Summary: Problem: Safety: Goal: Will remain free from falls Outcome: Progressing Problem: Lack of Knowledge: Goal: Ability to develop a pain control plan will improve Outcome: Progressing Problem: Nutritional: Goal: Nutritional status will improve Outcome: Progressing * Plan of Care - Suzie Sultana LCSW - 05/30/2019 3:06 PM CDT Problem: Patient currently in the ICU, 3LO2, and is not medically stable for discharge at this time. Patient discussed in DCAM rounds by team. Amiodarone & heparin gtt. Night Time Babysitter consult for discharge planning and possible placement assistance education noted. Patient is unable to participate in education at this time--was getting care. Intervention/Plan: Per chart review patient was recently discharged to [facility] [phone]. She left [facility] on 05/27/2019. Sw has a prior SW assessment in chart from 05/26/2019 by ANASTACIA Florez. Patient will be screened and followed by CM as well as SW for discharge planning needs and assistance. Therapy recommendations currently pending assessment. CM will assist with coordinating home health care and DME needs as guided by team. SW will assist CM as needed and will also offer education on continued care facility options, insurance coverage & criteria should facility placement be rec ommended by team. Patient can be referred to home health care agencies/skilled/rehab/LTAC facilities of choice and screened for potential admission when appropriate pending guidance from team and therapy recommendations. Goal: Night Time Babysitter to continue to follow for discharge planning assistance, formation of a safe discharge plan, and emotional support for family as needed. Suzie Sultana, [facility] [phone] * Plan of Care - Britney Pathak RN - 05/30/2019 2:58 PM CDT Problem: Lack of Knowledge: Goal: Ability to state ways to decrease the risk of falls will improve Outcome: Progressing Problem: Safety: Goal: Will remain free from falls Outcome: Progressing Goal: Will remain free from injury from falls Outcome: Progressing Goal: Will remain free from falls and injury in home environment Outcome: Progressing Problem: Lack of Knowledge: Goal: Ability to develop a pain control plan will improve Outcome: Progressing Goal: Ability to identify pain intensity on a pain scale and rate it consistently will improve Outcome: Progressing Goal: Ability to notify healthcare provider of pain before it becomes unmanageable or unbearable will improve Outcome: Progressing Problem: Medication: Goal: Satisfaction with pain management regimen will improve Outcome: Progressing Problem: Activity: Goal: Ability to avoid complications of mobility impairment will improve Outcome: Progressing Problem: Lack of Knowledge: Goal: Knowledge of the prescribed therapeutic regimen will improve Outcome: Progressing Goal: Ability to demonstrate proper wound care will improve Outcome: Progressing Problem: Health Behavior: Goal: Identification of resources available to assist in meeting health care needs will improve Outcome: Progressing Problem: Nutritional: Goal: Nutritional status will improve Outcome: Progressing Problem: Cardiac: Goal: Knowledge of VTE will improve by discharge Outcome: Progressing Problem: Lack of Knowledge: Goal: Knowledge of the prescribed therapeutic regimen will improve Outcome: Progressing Problem: Activity: Goal: Ability to ambulate will improve Outcome: Progressing Goal: Muscle strength will improve Outcome: Progressing Goal: Range of joint motion will improve Outcome: Progressing Problem: Safety: Goal: Ability to appropriately use an adaptive device for ambulation will improve Outcome: Progressing Goal: Ability to safely and independently change position in bed will improve Outcome: Progressing Goal: Ability to safely transfer will improve Outcome: Progressing Problem: Activity: Goal: Ability to tolerate increased activity will improve Outcome: Progressing Goal: Ability to participate in self-care as condition permits will improve Outcome: Progressing Problem: Cardiac: Goal: Ability to maintain an adequate cardiac output will improve Outcome: Progressing Goal: Will show no evidence of cardiac arrhythmias Outcome: Progressing Goal: Complications related to the disease process, condition or treatment will be avoided or minimized Outcome: Progressing Problem: Lack of Knowledge: Goal: Knowledge of the prescribed therapeutic regimen will improve Outcome: Progressing Goal: Knowledge of disease or condition will improve Outcome: Progressing Goal: Ability to identify and utilize available resources and services will improve Outcome: Progressing Problem: Activity: Goal: [...] Progressing Goals: Clinical Goals for the Shift: hemodynamic stability, OOBTC, pulmonary hygiene * Plan of Care - Nadiya Taylor - 05/30/2019 2:15 PM CDT Problem: Transfers Goal: STG - Patient to transfer to and from sit to supine Description: Kaylee Outcome: Progressing Problem: PT Misc Goal: PT STG - Misc 1 Description: HEP: Independent Outcome: Progressing Cosigned by Val Warner PT at 05/30/2019 3:45 PM CDT * Plan of Care - Rebecca Jain RN - 05/30/2019 1:45 PM CDT CM unable to interview patient as this time, MD at bedside. CM to attempt at later time/date. Per chart review, patient on amiodarone and heparin gtt. Patient recently discharge to [facility].Consult placed to SW. ADD 1 week. CM to follow for d/c planning and referrals as needed. If needed,please contact For emergency needs from 4:31pm-7:59am, please call the privacy specialist . For weekend/holiday needs from 8am-430pm, please call the Weekend Lockstitch Waistband Setter . * Significant Event - Endy Elliott MD - 05/30/2019 1:04 PM CDT Medicine Transfer Acceptance Note Prema Hodgson has been accepted for transfer to [facility]. I have talked to patient placement and a bed is pending. Please refer to H&P dated 05/28 and SICU transfer note (to be written prior to transfer) for more details regarding the patient's hospital stay. Briefly, patient is a 79 yo F with chronic afib on warfarin, T2DM, and recent L distal femoral fracture s/p replacement by Ortho (05/20) who initially presented to an OSH with increasing SOB and CP from her rehab facility, found to be in afib with RVR and CT PE showed b/l PEs (R segmental, L subsegmental). This was in the setting of being discharged subtherapeutic on warfarin without a bridge. At the OSH she was started on a dilt and heparin gtt. Labs were notable for NT-proBNP 5830, lactate 4.7, trop 0.036 -> 0.058 -> 0.110. The patient wasthen transferred to [facility] SICU on 05/28. She was started on amio gtt for afib with RVR. Repeat labs here notable for lactate 1.0, NT-proBNP 7985, trop 0.08. LEDs here showed acute DVT in the RLE. Bedside US here was c/f R heart strain, formal TTE is pending. Patient remains on amio gtt and metop has been uptitrated for rate control (currently 100s-110s, HDS with SBP in the 110s-120s). * Plan of Care - Camden Doherty RN - 05/30/2019 12:36 AM CDT Problem: Lack of Knowledge: Goal: Ability to state ways to decrease the risk of falls will improve Outcome: Progressing Problem: Safety: Goal: Will remain free from falls Outcome: Progressing Goal: Will remain free from injury from falls Outcome: Progressing Goal: Will remain free from falls and injury in home environment Outcome: Progressing Problem: Lack of Knowledge: Goal: Ability to develop a pain control plan will improve Outcome: Progressing Goal: Ability to identify pain intensity on a pain scale and rate it consistently will improve Outcome: Progressing Goal: Ability to notify healthcare provider of pain before it becomes unmanageable or unbearable will improve Outcome: Progressing Problem: Medication: Goal: Satisfaction with pain management regimen will improve Outcome: Progressing Problem: Activity: Goal: Ability to avoid complications of mobility impairment will improve Outcome: Progressing Problem: Lack of Knowledge: Goal: Knowledge of the prescribed therapeutic regimen will improve Outcome: Progressing Goal: Ability to demonstrate proper wound care will improve Outcome: Progressing Problem: Health Behavior: Goal: Identification of resources available to assist in meeting health care needs will improve Outcome: Progressing Problem: Nutritional: Goal: Nutritional status will improve Outcome: Progressing Problem: Cardiac: Goal: Knowledge of VTE will improve by discharge Outcome: Progressing Problem: Lack of Knowledge: Goal: Knowledge of the prescribed therapeutic regimen will improve Outcome: Progressing Problem: Activity: Goal: Ability to ambulate will improve Outcome: Progressing Goal: Muscle strength will improve Outcome: Progressing Goal: Range of joint motion will improve Outcome: Progressing Problem: Safety: Goal: Ability to appropriately use an adaptive device for ambulation will improve Outcome: Progressing Goal: Ability to safely and independently change position in bed will improve Outcome: Progressing Goal: Ability to safely transfer will improve Outcome: Progressing Problem: Activity: Goal: Ability to tolerate increased activity will improve Outcome: Progressing Goal: Ability to participate in self-care as condition permits will improve Outcome: Progressing Problem: Cardiac: Goal: Ability to maintain an adequate cardiac output will improve Outcome: Progressing Goal: Will show no evidence of cardiac arrhythmias Outcome: Progressing Goal: Complications related to the disease process, condition or treatment will be avoided or minimized Outcome: Progressing Problem: Lack of Knowledge: Goal: Knowledge of the prescribed therapeutic regimen will improve Outcome: Progressing Goal: Knowledge of disease or condition will improve Outcome: Progressing Goal: Ability to identify and utilize available resources and services will improve Outcome: Progressing Goals: Clinical Goals for the Shift: VS, Rate control, I&Os Summary: Patient continues to be on their heparin drip at 13units/kg/hr and Amiodarone at 1mg/hr. Patient is resting comfortably in bed and sleep hygiene will provided the patient. documented in this encounter Plan of Treatment Not on file documented as of this encounter Procedures Procedure Name Priority Date/Time Associated Diagnosis Comments POCT GLUCOSE DEVICE Routine 06/05/2019 1 1:39 AM CDT POCT GLUCOSE DEVICE Routine 06/05/2019 7 :38 AM CDT PROTIME-INR Routine 06/04/2019 8:51 PM CDT CBC WITHOUT DIFFERENTIAL Routine 06/04/2019 8:51 PM CDT BASIC METABOLIC PANEL Routine 06/04/2019 8:51 PM CDT POCT GLUCOSE DEVICE Routine 06/04/2019 8 :03 PM CDT POCT GLUCOSE DEVICE Routine 06/04/2019 5 :17 PM CDT POCT GLUCOSE DEVICE Routine 06/04/2019 1 1:18 AM CDT POCT GLUCOSE DEVICE Routine 06/04/2019 7 :44 AM CDT APTT Routine 06/03/2019 10:17 PM CDT PROTIME-INR Routine 06/03/2019 10:17 PM CDT CBC WITHOUT DIFFERENTIAL Routine 06/03/2019 10:17 PM CDT BASIC METABOLIC PANEL Routine 06/03/2019 10:17 PM CDT POCT GLUCOSE DEVICE Routine 06/03/2019 8 :05 PM CDT POCT GLUCOSE DEVICE Routine 06/03/2019 4 :36 PM CDT POCT GLUCOSE DEVICE Routine 06/03/2019 1 1:31 AM CDT POCT GLUCOSE DEVICE Routine 06/03/2019 7 :39 AM CDT APTT Routine 06/02/2019 11:04 PM CDT PROTIME-INR Routine 06/02/2019 11:04 PM CDT CBC WITHOUT DIFFERENTIAL Routine 06/02/2019 11:04 PM CDT POCT GLUCOSE DEVICE Routine 06/02/2019 8 :53 PM CDT POCT GLUCOSE DEVICE Routine 06/02/2019 4 :38 PM CDT POCT GLUCOSE DEVICE Routine 06/02/2019 1 1:20 AM CDT POCT GLUCOSE DEVICE Routine 06/02/2019 7 :29 AM CDT POCT GLUCOSE DEVICE Routine 06/01/2019 8 :20 PM CDT APTT Routine 06/01/2019 8:08 PM CDT PROTIME-INR Routine 06/01/2019 8:08 PM CDT CBC WITHOUT DIFFERENTIAL Routine 06/01/2019 8:08 PM CDT BASIC METABOLIC PANEL Timed 06/01/2019 8:08 PM CDT POCT GLUCOSE DEVICE Routine 06/01/2019 4 :51 PM CDT POCT GLUCOSE DEVICE Routine 06/01/2019 1 1:28 AM CDT POCT GLUCOSE DEVICE Routine 06/01/2019 7 :39 AM CDT APTT Routine 05/31/2019 9:07 PM CDT PROTIME-INR Routine 05/31/2019 9:07 PM CDT CBC WITHOUT DIFFERENTIAL Routine 05/31/2019 9:07 PM CDT MAGNESIUM Routine 05/31/2019 9:07 PM CDT LIPID PANEL Routine 05/31/2019 9:07 PM CDT BASIC METABOLIC PANEL Routine 05/31/2019 9:07 PM CDT POCT GLUCOSE DEVICE Routine 05/31/2019 8 :53 PM CDT POCT GLUCOSE DEVICE Routine 05/31/2019 5 :15 PM CDT POCT GLUCOSE DEVICE Routine 05/31/2019 1 1:37 AM CDT CRITICAL CARE Routine 05/31/2019 8:03 AM CDT Atrial fibrillation with RVR ([facility]) POCT GLUCOSE DEVICE Routine 05/31/2019 7 :40 AM CDT POCT GLUCOSE DEVICE Routine 05/31/2019 3 :08 AM CDT APTT Routine 05/30/2019 11:59 PM CDT PROTIME-INR Routine 05/30/2019 11:59 PM CDT POCT GLUCOSE DEVICE Routine 05/30/2019 1 1:41 PM CDT CALCIUM, IONIZED Routine 05/30/2019 9:46 PM CDT CBC WITHOUT DIFFERENTIAL Routine 05/30/2019 9:46 PM CDT PHOSPHORUS Routine 05/30/2019 9:46 PM CDT MAGNESIUM Routine 05/30/2019 9:46 PM CDT HEMOGLOBIN A1C Routine 05/30/2019 9:46 PM CDT BASIC METABOLIC PANEL Routine 05/30/2019 9:46 PM CDT POCT GLUCOSE DEVICE Routine 05/30/2019 7 :03 PM CDT APTT STAT 05/30/2019 5:44 PM CDT TRANSTHORACIC ECHO (TTE) COMPLETE W DOPPLER/CF W CONTRAST Routine 05/30/2019 4:39 PM CDT POCT GLUCOSE DEVICE Routine 05/30/2019 3 :38 PM CDT XR CHEST 1 VIEW IP Routine 05/30/2019 1:05 PM CDT CRITICAL CARE Routine 05/30/2019 11:36 AM CDT Atrial fibrillation with RVR (CMS/HCC) POCT GLUCOSE DEVICE Routine 05/30/2019 1 1:26 AM CDT US VEIN DUPLEX LOWER EXTREMITY BILATERAL COMPLETE IP Routine 05/30/2019 10:44 AM CDT APTT STAT 05/30/2019 10:26 AM CDT POCT GLUCOSE DEVICE Routine 05/30/2019 7 :33 AM CDT APTT STAT 05/30/2019 4:48 AM CDT TROPONIN I Timed 05/30/2019 3:19 AM CDT POCT GLUCOSE DEVICE Routine 05/30/2019 3 :09 AM CDT POCT GLUCOSE DEVICE Routine 05/30/2019 1 2:30 AM CDT CRITICAL CARE Routine 05/29/2019 11:23 PM CDT Atrial fibrillation with RVR (CMS/HCC) DIFFERENTIAL AUTO STAT 05/29/2019 9:4 2 PM CDT PRO B-TYPE NATRIURETIC PEPTIDE STAT 05/29/2019 9:42 PM CDT CBC WITH AUTO DIFFERENTIAL STAT 05/29/2019 9:42 PM CDT APTT STAT 05/29/2019 9:42 PM CDT PROTIME-INR STAT 05/29/2019 9:42 PM CDT INFECTION PREVENTION MRSA ONLY (STAPHYLOCOCCUS AUREUS) CULTURE Routine 05/29/2019 9:42 PM CDT PHOSPHORUS STAT 05/29/2019 9:42 PM CDT MAGNESIUM STAT 05/29/2019 9:42 PM CDT BASIC METABOLIC PANEL STAT 05/29/2019 9:42 PM CDT ECG 12-LEAD STAT 05/29/2019 9:27 PM CDT POCT GLUCOSE DEVICE Routine 05/29/2019 9 :23 PM CDT documented in this encounter Results * POCT glucose (06/05/2019 11:39 AM CDT) [facility] Signature Glucose, POC 179 70 - 199 mg/dL [facility] Blood specimen (specimen) 06/05/2019 11:39 AM CDT 06/05/2019 11:39 AM CDT us Alessandro Erazo MD LAB POCT ORDERABLES - DEVICE Fi nal Result [facility] Department [place] [address] * POCT glucose (06/05/2019 7:38 AM CDT) Glucose, POC 150 70 - 199 mg/dL [facility] Blood specimen (specimen) 06/05/2019 7:38 AM CDT 06/05/2019 7:38 AM CDT Alessandro Erazo MD LAB POCT ORDERABLES - DEVICE Fi nal Result [facility] Department [place] [address] * (ABNORMAL) Basic metabolic panel (06/04/2019 8:51 PM CDT) [facility] Sodium 132(L) 135 - 145 mmol/L [facility] Potassium, pl 3.8 3.3 - 4.9 mmol/L [facility] Chloride 100 97 - 110 mmol/L [facility] CO2 24 22 - 32 mmol/L [facility] Anion gap 8 2 - 15 mmol/L [facility] BUN 15 8 - 25 mg/dL [facility] Creatinine 0.65 0.60 - 1.10 mg/dL [facility] Glucose 171 70 - 199 mg/dL [facility] Comment: Interpretive Data Fasting glucose >/= 126 [...] 2017. Calcium 8.5 8.5 - 10.3 mg/dL [facility] Blood specimen (specimen) 06/04/2019 8:51 PM CDT 06/04/2019 9:01 PM CDT Alessandro Erazo MD LAB BLOOD ORDERABLES Final Resu lt [facility] Department [place] [address] * (ABNORMAL) CBC without differential (06/04/2019 8:51 PM CDT) Pathologist [facility] WBC 7.5 3.8 - 9.9 K/cumm [facility] Hgb 7.7(L) 11.9 - 15.5 g/dL [facility] Hct 25.8(L) 35.6 - 45.5 % [facility] Plt 389 150 - 400 K/cumm [facility] MPV 10.3 9.1 - 12.3 fL [facility] RBC 2.59(L) 3.90 - 5.20 M/cumm [facility] MCV 99.6(H) 81.3 - 96.4 fL [facility] MCH 29.7 27.1 - 33.3 pg [facility] MCHC 29.8(L) 32.3 - 35.7 g/dL [facility] RDW CV 16.5(H) 11.1 - 14.9 % [facility] RDW SD 58.5(H) 35.7 - 48.1 fL [facility] NRBC abs 0.04(H) 0.00 - 0.01 K/cumm [facility] Blood specimen (specimen) 06/04/2019 8:51 PM CDT 06/04/2019 9:01 PM CDT Alessandro Erazo MD LAB BLOOD ORDERABLES Final Resu lt [facility] Department [place] [address] * (ABNORMAL) Protime-INR (06/04/2019 8:51 PM CDT) Pathologist [facility] PT 21.5(H) 8.6 - 13.0 sec [facility] INR 2.0(H) 0.8 - 1.2 [facility] Comment: Interpretive data Oral anticoagulant therapeutic ranges: Venous thromboembolism prophylaxis or treatment: 2.0-3.0 CARDIOLOGY Standard range: 2.0-3.0 High-intensity range: 2.5-3.5 Refer to indication-specific guidelines for appropriate target ranges for prosthetic heart valve replacement. Current interpretive data was last revised on 2019. Blood specimen (specimen) 06/04/2019 8:51 PM CDT 06/04/2019 8:58 PM CDT Alessandro Erazo MD LAB BLOOD ORDERABLES Final Resu lt Performing Organization Address [facility] Co de Phone Number [facility] [place] [address] * (ABNORMAL) POCT glucose (06/04/2019 8:03 PM CDT) Glucose, POC 240(H) 70 - 199 mg/dL [facility] Blood specimen (specimen) 06/04/2019 8:03 PM CDT 06/04/2019 8:03 PM CDT Result [facility] Alessandro Erazo MD LAB POCT ORDERABLES - DEVICE Fi nal Result Performing Organization Address [facility] de Phone Number [facility] [place] [address] * POCT glucose (06/04/2019 5:17 PM CDT) Glucose, POC 150 70 - 199 mg/dL [facility] Blood specimen (specimen) 06/04/2019 5:17 PM CDT 06/04/2019 5:17 PM CDT Alessandro Erazo MD LAB POCT ORDERABLES - DEVICE Fi nal Result Performing Organization Address [facility] Co de Phone Number [facility] [place] [address] * (ABNORMAL) POCT glucose (06/04/2019 11:18 AM CDT) Glucose, POC 211(H) 70 - 199 mg/dL [facility] Blood specimen (specimen) 06/04/2019 11:18 AM CDT 06/04/2019 11:18 AM CDT Alessandro Erazo MD LAB POCT ORDERABLES - DEVICE Fi nal Result Performing Organization Address [facility] Co de Phone Number [facility] Department [place] [address] * POCT glucose (06/04/2019 7:44 AM CDT) [facility] Glucose, POC 148 70 - 199 mg/dL [facility] Blood specimen (specimen) 06/04/2019 7:44 AM CDT 06/04/2019 7:44 AM CDT Alessandro Erazo MD LAB POCT ORDERABLES - DEVICE Fi nal Result Performing Organization Address [facility] de Phone Number [facility] [place] [address] * (ABNORMAL) Basic metabolic panel (06/03/2019 10:17 PM CDT) [facility] Sodium 134(L) 135 - 145 mmol/L [facility] Potassium, pl 3.7 3.3 - 4.9 mmol/L [facility] Chloride 100 97 - 110 mmol/L [facility] CO2 28 22 - 32 mmol/L [facility] Anion gap 6 2 - 15 mmol/L [facility] BUN 14 8 - 25 mg/dL [facility] Creatinine 0.58(L) 0.60 - 1.10 mg/dL [facility] Glucose 148 70 - 199 mg/dL [facility] Comment: Interpretive Data Fasting glucose >/= 126 [...] interpretive data was last revised 2017. Calcium 8.3(L) 8.5 - 10.3 mg/dL [facility] Blood specimen (specimen) 06/03/2019 10:17 PM CDT 06/03/2019 10:33 PM CDT us Alessandro Erazo MD LAB BLOOD ORDERABLES Final Resu lt [facility] Department [place] [address] * (ABNORMAL) CBC without differential (06/03/2019 10:17 PM CDT) WBC 9.0 3.8 - 9.9 K/cumm [facility] Hgb 7.7(L) 11.9 - 15.5 g/dL [facility] Hct 25.2(L) 35.6 - 45.5 % [facility] Plt 398 150 - 400 K/cumm [facility] MPV 10.5 9.1 - 12.3 fL [facility] RBC 2.54(L) 3.90 - 5.20 M/cumm [facility] MCV 99.2(H) 81.3 - 96.4 fL [facility] MCH 30.3 27.1 - 33.3 pg [facility] MCHC 30.6(L) 32.3 - 35.7 g/dL [facility] RDW CV 16.4(H) 11.1 - 14.9 % [facility] RDW SD 58.0(H) 35.7 - 48.1 fL [facility] NRBC abs 0.06(H) 0.00 - 0.01 K/cumm [facility] Blood specimen (specimen) 06/03/2019 10:17 PM CDT 06/03/2019 10:33 PM CDT Alessandro Erazo MD LAB BLOOD ORDERABLES Final Resu lt Performing Organization Address City/[facility] Co de Phone Number [facility] [place] [address] * (ABNORMAL) Protime-INR (06/03/2019 10:17 PM CDT) PT 22.0(H) 8.6 - 13.0 sec [facility] INR 2.0(H) 0.8 - 1.2 [facility] Comment: Interpretive data Oral anticoagulant therapeutic ranges: Venous thromboembolism prophylaxis or treatment: 2.0-3.0 CARDIOLOGY Standard range: 2.0-3.0 High-intensity range: 2.5-3.5 Refer to indication-specific guidelines for appropriate target ranges for prosthetic heart valve replacement. Current interpretive data was last revised on 2019. Blood specimen (specimen) 06/03/2019 10:17 PM CDT 06/03/2019 10:27 PM CDT Alessandro Erazo MD LAB BLOOD ORDERABLES Final Resu lt Performing Organization Address [facility] de Phone Number [facility] [place] [address] * (ABNORMAL) aPTT (06/03/2019 10:17 PM CDT) aPTT 84(H) 25 - 37 sec [facility] Comment: Interpretive data Heparin therapeutic range: 60-90 seconds Range based on correlation with therapeutic heparin activity range of 0.3-0.7 units/ml. Current interpretive data was last revised on 2019. Blood specimen (specimen) 06/03/2019 10:17 PM CDT 06/03/2019 10:27 PM CDT Alessandro Erazo MD LAB BLOOD ORDERABLES Final Resu lt Performing Organization Address City/[facility] Co de Phone Number [facility] [place] [address] * (ABNORMAL) POCT glucose (06/03/2019 8:05 PM CDT) Glucose, POC 215(H) 70 - 199 mg/dL [facility] Blood specimen (specimen) 06/03/2019 8:05 PM CDT 06/03/2019 8:05 PM CDT Alessandro Erazo MD LAB POCT ORDERABLES - DEVICE Fi nal Result Performing Organization Address City/[facility]/[place] [address] * POCT glucose (06/03/2019 4:36 PM CDT) Glucose, POC 157 70 - 199 mg/dL [facility] Blood specimen (specimen) 06/03/2019 4:36 PM CDT 06/03/2019 4:36 PM CDT Alessandro Erazo MD LAB POCT ORDERABLES - DEVICE Fi nal Result Performing Organization Address City/[facility]/[place] [address] * POCT glucose (06/03/2019 11:31 AM CDT) Glucose, POC 154 70 - 199 mg/dL [facility] Blood specimen (specimen) 06/03/2019 11:31 AM CDT 06/03/2019 11:31 AM CDT Alessandro Erazo MD LAB POCT ORDERABLES - DEVICE Fi nal Result Performing Organization Address City/[facility]/[place] [address] * POCT glucose (06/03/2019 7:39 AM CDT) [facility] Glucose, POC 161 70 - 199 mg/dL [facility] Blood specimen (specimen) 06/03/2019 7:39 AM CDT 06/03/2019 7:39 AM CDT Alessandro Erazo MD LAB POCT ORDERABLES - DEVICE Fi nal Result Performing Organization Address City/[facility]/ZIP Co de Phone Number [facility] Department [place] [address] * (ABNORMAL) CBC without differential (06/02/2019 11:04 PM CDT) [facility] WBC 11.3(H) 3.8 - 9.9 K/cumm [facility] Hgb 8.3(L) 11.9 - 15.5 g/dL [facility] Hct 26.5(L) 35.6 - 45.5 % [facility] Plt 414(H) 150 - 400 K/cumm [facility] MPV 10.7 9.1 - 12.3 fL [facility] RBC 2.68(L) 3.90 - 5.20 M/cumm [facility] MCV 98.9(H) 81.3 - 96.4 fL [facility] MCH 31.0 27.1 - 33.3 pg [facility] MCHC 31.3(L) 32.3 - 35.7 g/dL [facility] RDW CV 16.4(H) 11.1 - 14.9 % [facility] RDW SD 57.2(H) 35.7 - 48.1 fL [facility] NRBC abs 0.09(H) 0.00 - 0.01 K/cumm [facility] Blood specimen (specimen) 06/02/2019 11:04 PM CDT 06/02/2019 11:32 PM CDT Alessandro Erazo MD LAB BLOOD ORDERABLES Final Resu lt [facility] [place] [address] * (ABNORMAL) Protime-INR (06/02/2019 11:04 PM CDT) Pathologist [facility] PT 20.6(H) 8.6 - 13.0 sec [facility] INR 1.9(H) 0.8 - 1.2 [facility] Comment: Interpretive data Oral anticoagulant therapeutic ranges: Venous thromboembolism prophylaxis or treatment: 2.0-3.0 CARDIOLOGY Standard range: 2.0-3.0 High-intensity range: 2.5-3.5 Refer to indication-specific guidelines for appropriate target ranges for prosthetic heart valve replacement. Current interpretive data was last revised on 2019. Blood specimen (specimen) 06/02/2019 11:04 PM CDT 06/02/2019 11:32 PM CDT Alessandro Erazo MD LAB BLOOD ORDERABLES Final Resu lt Performing Organization Address [facility] de Phone Number [facility] [place] [address] * (ABNORMAL) aPTT (06/02/2019 11:04 PM CDT) [facility] aPTT 89(H) 25 - 37 sec [facility] Comment: Interpretive data Heparin therapeutic range: 60-90 seconds Range based on correlation with therapeutic heparin activity range of 0.3-0.7 units/ml. Current interpretive data was last revised on 2019. Blood specimen (specimen) 06/02/2019 11:04 PM CDT 06/02/2019 11:32 PM CDT Alessandro Erazo MD LAB BLOOD ORDERABLES Final Resu lt Performing Organization Address [facility] Co de Phone Number [facility] [place] [address] * (ABNORMAL) POCT glucose (06/02/2019 8:53 PM CDT) Pathologist [facility] Glucose, POC 200(H) 70 - 199 mg/dL [facility] Blood specimen (specimen) 06/02/2019 8:53 PM CDT 06/02/2019 8:53 PM CDT Alessandro Erazo MD LAB POCT ORDERABLES - DEVICE Fi nal Result Performing Organization Address [facility] Co de Phone Number [facility] [place] [address] * POCT glucose (06/02/2019 4:38 PM CDT) Glucose, POC 168 70 - 199 mg/dL [facility] Blood specimen (specimen) 06/02/2019 4:38 PM CDT 06/02/2019 4:38 PM CDT Alessandro Erazo MD LAB POCT ORDERABLES - DEVICE Fi nal Result Performing Organization Address [facility] de Phone Number [facility] [place] [address] * POCT glucose (06/02/2019 11:20 AM CDT) Glucose, POC 173 70 - 199 mg/dL [facility] Blood specimen (specimen) 06/02/2019 11:20 AM CDT 06/02/2019 11:20 AM CDT Alessandro Erazo MD LAB POCT ORDERABLES - DEVICE Fi nal Result Performing Organization Address [facility] [place] [address] * POCT glucose (06/02/2019 7:29 AM CDT) Glucose, POC 156 70 - 199 mg/dL [facility] Blood specimen (specimen) 06/02/2019 7:29 AM CDT 06/02/2019 7:29 AM CDT Alessandro Erazo MD LAB POCT ORDERABLES - DEVICE Fi nal Result Performing Organization Address City/[facility]/ZIP Co de Phone Number [facility] Department [place] [address] * (ABNORMAL) POCT glucose (06/01/2019 8:20 PM CDT) Glucose, POC 204(H) 70 - 199 mg/dL [facility] Blood specimen (specimen) 06/01/2019 8:20 PM CDT 06/01/2019 8:20 PM CDT Alessandro Erazo MD LAB POCT ORDERABLES - DEVICE Fi nal Result Performing Organization Address [facility] de Phone Number [facility] [place] [address] * (ABNORMAL) Basic metabolic panel (06/01/2019 8:08 PM CDT) Pathologist [facility] Sodium 134(L) 135 - 145 mmol/L [facility] Potassium, pl 3.1(L) 3.3 - 4.9 mmol/L [facility] Chloride 98 97 - 110 mmol/L [facility] CO2 28 22 - 32 mmol/L [facility] Anion gap 8 2 - 15 mmol/L [facility] BUN 18 8 - 25 mg/dL [facility] Creatinine 0.62 0.60 - 1.10 mg/dL [facility] Glucose 189 70 - 199 mg/dL [facility] Comment: Interpretive Data Fasting glucose >/= 126 [...] 2017. Calcium 8.5 8.5 - 10.3 mg/dL [facility] Blood specimen (specimen) 06/01/2019 8:08 PM CDT 06/01/2019 8:35 PM CDT Roc Spencer MD LAB BLOOD ORDERABLES Final Resu lt Performing Organization Address [facility] Co de Phone Number [facility] Department [place] [address] * (ABNORMAL) CBC without differential (06/01/2019 8:08 PM CDT) WBC 9.7 3.8 - 9.9 K/cumm [facility] Hgb 8.2(L) 11.9 - 15.5 g/dL [facility] Hct 26.9(L) 35.6 - 45.5 % [facility] Plt 371 150 - 400 K/cumm [facility] MPV 10.6 9.1 - 12.3 fL [facility] RBC 2.74(L) 3.90 - 5.20 M/cumm [facility] MCV 98.2(H) 81.3 - 96.4 fL [facility] MCH 29.9 27.1 - 33.3 pg [facility] MCHC 30.5(L) 32.3 - 35.7 g/dL [facility] RDW CV 16.1(H) 11.1 - 14.9 % [facility] RDW SD 55.6(H) 35.7 - 48.1 fL [facility] NRBC abs 0.10(H) 0.00 - 0.01 K/cumm [facility] Blood specimen (specimen) 06/01/2019 8:08 PM CDT 06/01/2019 8:35 PM CDT us Alessandro Erazo MD LAB BLOOD ORDERABLES Final Resu lt Performing Organization Address City/[facility]/ZIP Co de Phone Number [facility] [place] [address] * (ABNORMAL) Protime-INR (06/01/2019 8:08 PM CDT) PT 19.6(H) 8.6 - 13.0 sec [facility] INR 1.8(H) 0.8 - 1.2 [facility] Comment: Interpretive data Oral anticoagulant therapeutic ranges: Venous thromboembolism prophylaxis or treatment: 2.0-3.0 CARDIOLOGY Standard range: 2.0-3.0 High-intensity range: 2.5-3.5 Refer to indication-specific guidelines for appropriate target ranges for prosthetic heart valve replacement. Current interpretive data was last revised on 2019. Blood specimen (specimen) 06/01/2019 8:08 PM CDT 06/01/2019 8:26 PM CDT Alessandro Erazo MD LAB BLOOD ORDERABLES Final Resu Performing Organization Address [facility] de Phone Number [facility] Department [place] [address] * (ABNORMAL) aPTT (06/01/2019 8:08 PM CDT) Pathologist [facility] aPTT 76(H) 25 - 37 sec [facility] Comment: Interpretive data Heparin therapeutic range: 60-90 seconds Range based on correlation with therapeutic heparin activity range of 0.3-0.7 units/ml. Current interpretive data was last revised on 2019. Blood specimen (specimen) 06/01/2019 8:08 PM CDT 06/01/2019 8:26 PM CDT Alessandro Erazo MD LAB BLOOD ORDERABLES Final Resu Performing Organization Address [facility] Co de Phone Number [facility] [place] [address] * POCT glucose (06/01/2019 4:51 PM CDT) Glucose, POC 152 70 - 199 mg/dL [facility] Blood specimen (specimen) 06/01/2019 4:51 PM CDT 06/01/2019 4:51 PM CDT Result [facility] Alessandro Erazo MD LAB POCT ORDERABLES - DEVICE Fi nal Result Performing Organization Address [facility] de Phone Number [facility] [place] [address] * POCT glucose (06/01/2019 11:28 AM CDT) Glucose, POC 183 70 - 199 mg/dL [facility] Blood specimen (specimen) 06/01/2019 11:28 AM CDT 06/01/2019 11:28 AM CDT Result [facility] Alessandro Erazo MD LAB POCT ORDERABLES - DEVICE Fi nal Result Performing Organization Address [facility] de Phone Number [facility] [place] [address] * POCT glucose (06/01/2019 7:39 AM CDT) Glucose, POC 162 70 - 199 mg/dL [facility] Blood specimen (specimen) 06/01/2019 7:39 AM CDT 06/01/2019 7:39 AM CDT Result [facility] Alessandro Erazo MD LAB POCT ORDERABLES - DEVICE Fi nal Result Performing Organization Address [facility] [place] [address] * (ABNORMAL) Lipid panel (05/31/2019 9:07 PM CDT) Cholesterol 74 30 - 199 mg/dL [facility] Comment: Interpretive Data Ages < or = [...] Data was last revised on 2017. Triglycerides 119 <=149 mg/dL [facility] Comment: Interpretive Data Ages < or = [...] revised on 2017. HDL 21(L) >=40 mg/dL [facility] Comment: Interpretive Data Ages < or = [...] was last revised on 2017. LDL, calculated 29 <=129 mg/dL [facility] Comment: Interpretive Data Ages < or = [...] was last revised on 2017. Non-HDL Cholesterol 53 mg/dL [facility] Comment: Interpretive Data Ages < or = [...] was last revised on 2017. Chol/HDL ratio 4 [facility] Blood specimen (specimen) 05/31/2019 9:07 PM CDT 05/31/2019 9:46 PM CDT us Alessandro Erazo MD LAB BLOOD ORDERABLES Final Resu lt Performing Organization Address [facility] Co de Phone Number [facility] [place] [address] * (ABNORMAL) aPTT (05/31/2019 9:07 PM CDT) aPTT 60(H) 25 - 37 sec [facility] Comment: Interpretive data Heparin therapeutic range: 60-90 seconds Range based on correlation with therapeutic heparin activity range of 0.3-0.7 units/ml. Current interpretive data was last revised on 2019. Blood specimen (specimen) 05/31/2019 9:07 PM CDT 05/31/2019 9:37 PM CDT Result [facility] Alessandro Erazo MD LAB BLOOD ORDERABLES Final Resu lt Performing Organization Address [facility] [place] [address] * (ABNORMAL) Protime-INR (05/31/2019 9:07 PM CDT) PT 17.2(H) 8.6 - 13.0 sec [facility] INR 1.6(H) 0.8 - 1.2 [facility] Comment: Interpretive data Oral anticoagulant therapeutic ranges: Venous thromboembolism prophylaxis or treatment: 2.0-3.0 CARDIOLOGY Standard range: 2.0-3.0 High-intensity range: 2.5-3.5 Refer to indication-specific guidelines for appropriate target ranges for prosthetic heart valve replacement. Current interpretive data was last revised on 2019. Blood specimen (specimen) 05/31/2019 9:07 PM CDT 05/31/2019 9:37 PM CDT Result [facility] Alessandro Erazo MD LAB BLOOD ORDERABLES Final Resu lt Performing Organization Address [facility] Co de Phone Number [facility] [place] [address] * Magnesium (05/31/2019 9:07 PM CDT) Magnesium 1.7 1.4 - 2.5 mg/dL [facility] Blood specimen (specimen) 05/31/2019 9:07 PM CDT 05/31/2019 9:46 PM CDT us Alessandro Erazo MD LAB BLOOD ORDERABLES Final Resu lt [facility] Department [place] [address] * (ABNORMAL) Basic metabolic panel (05/31/2019 9:07 PM CDT) [facility] Sodium 136 135 - 145 mmol/L [facility] Potassium, pl 4.6 3.3 - 4.9 mmol/L [facility] Comment:Hemolyzed; Potassium value may be falsely elevated by as much as 0.3-0.5 mmol/L. Suggest redraw and reanalysis. Chloride 99 97 - 110 mmol/L [facility] CO2 26 22 - 32 mmol/L [facility] Anion gap 11 2 - 15 mmol/L [facility] BUN 18 8 - 25 mg/dL [facility] Creatinine 0.59(L) 0.60 - 1.10 mg/dL [facility] Glucose 148 70 - 199 mg/dL [facility] Comment: Interpretive Data Fasting glucose >/= 126 [...] 2017. Calcium 8.7 8.5 - 10.3 mg/dL [facility] Blood specimen (specimen) 05/31/2019 9:07 PM CDT 05/31/2019 9:46 PM CDT Alessandro Erazo MD LAB BLOOD ORDERABLES Final Resu lt [facility] Department [place] [address] * (ABNORMAL) CBC without differential (05/31/2019 9:07 PM CDT) Pathologist [facility] WBC 11.1(H) 3.8 - 9.9 K/cumm [facility] Hgb 8.6(L) 11.9 - 15.5 g/dL [facility] Hct 27.9(L) 35.6 - 45.5 % [facility] Plt 322 150 - 400 K/cumm [facility] MPV 10.8 9.1 - 12.3 fL [facility] RBC 2.78(L) 3.90 - 5.20 M/cumm [facility] MCV 100.4(H) 81.3 - 96.4 fL [facility] MCH 30.9 27.1 - 33.3 pg [facility] MCHC 30.8(L) 32.3 - 35.7 g/dL [facility] RDW CV 16.1(H) 11.1 - 14.9 % [facility] RDW SD 57.0(H) 35.7 - 48.1 fL [facility] NRBC abs 0.17(H) 0.00 - 0.01 K/cumm [facility] Blood specimen (specimen) 05/31/2019 9:07 PM CDT 05/31/2019 9:46 PM CDT Alessandro Erazo MD LAB BLOOD ORDERABLES Final Resu lt [facility] [place] [address] * POCT glucose (05/31/2019 8:53 PM CDT) Glucose, POC 155 70 - 199 mg/dL [facility] Blood specimen (specimen) 05/31/2019 8:53 PM CDT 05/31/2019 8:53 PM CDT Alessandro Erazo MD LAB POCT ORDERABLES - DEVICE Fi nal Result Performing Organization Address [facility] de Phone Number [facility] [place] [address] * POCT glucose (05/31/2019 5:15 PM CDT) Glucose, POC 168 70 - 199 mg/dL [facility] Blood specimen (specimen) 05/31/2019 5:15 PM CDT 05/31/2019 5:15 PM CDT Result [facility] Alessandro Erazo MD LAB POCT ORDERABLES - DEVICE Fi nal Result Performing Organization Address [facility] de Phone Number [facility] [place] [address] * POCT glucose (05/31/2019 11:37 AM CDT) Glucose, POC 192 70 - 199 mg/dL [facility] Blood specimen (specimen) 05/31/2019 11:37 AM CDT 05/31/2019 11:37 AM CDT Keanu Hwang MD LAB POCT ORDERABLES - DEVIC E Final Result Performing Organization Address [facility] [place] [address] * Critical Care (05/31/2019 8:03 AM CDT) Narrative Miguel Centeno MD PhD - 05/31/2019 8:03 AM CDT Miguel Centeno MD PhD ? 05/31/2019 ??4:55 PM Critical Care Performed by: Miguel Centeno MD PhD Authorized by: Miguel Centeno MD PhD CRITICAL CARE: ??Team: ??SICU RED ??Shift: ??AM ??Level of Billing: ??Critical Care ??My time spent with this patient was 35 minutes: Critical Provider Statement: I have seen and examined the patient on this day of service. I have reviewed and confirmed the history, physical exam, laboratory and radiologic data as documented in the signed ICU note. I have reviewed and discussed my treatment plan with the ICU team and other medical/learning consultant staff, making frequent assessments and decisions regarding this patient's complex medical care. Critical Care time was exclusive of time spent performing separately billed procedures, treating other patients, and teaching. This time was in addition to and separate from critical care provided by other practitioners in my group on this day of service. Critical Care was necessary to treat or prevent imminent or life-threatening deterioration of the following conditions: ? Atrial fibrillation with rapid ventricular rate ?? Acute respiratory insufficiency ?? Acute kidney injury and Acute electrolyte derangement ?? Severe undifferentiated anemia ??This time was spent by me doing the following: ? Initiation/active titration of anti-arrhythmic or rate controlling agent ?? Active and frequent reassessment of respiratory status and oxygen requirements ?? Active and frequent monitoring of intake/output and volumen status and Glycemic control ?? I spent time reviewing and interpreting data from bedside monitors, laboratory results, and imaging and I spent time documenting in the medical record us Miguel Centeno MD PhD IN CLINIC/BEDSIDE ORDERABLES Final Result * POCT glucose (05/31/2019 7:40 AM CDT) Glucose, POC 180 70 - 199 mg/dL [facility] Blood specimen (specimen) 05/31/2019 7:40 AM CDT 05/31/2019 7:40 AM CDT Keanu Hwang MD LAB POCT ORDERABLES - DEVIC E Final Result [facility] [place] [address] * POCT glucose (05/31/2019 3:08 AM CDT) Glucose, POC 178 70 - 199 mg/dL [facility] Blood specimen (specimen) 05/31/2019 3:08 AM CDT 05/31/2019 3:08 AM CDT Keanu Hwang MD LAB POCT ORDERABLES - DEVIC E Final Result Performing Organization Address [facility] de Phone Number [facility] [place] [address] * (ABNORMAL) aPTT (05/30/2019 11:59 PM CDT) Pathologist [facility] aPTT 66(H) 25 - 37 sec [facility] Comment: Interpretive data Heparin therapeutic range: 60-90 seconds Range based on correlation with therapeutic heparin activity range of 0.3-0.7 units/ml. Current interpretive data was last revised on 2019. Blood specimen (specimen) 05/30/2019 11:59 PM CDT 05/31/2019 12:09 AM CDT Leila Andre NP LAB BLOOD ORDERABLES Sri l Result Performing Organization Address [facility] de Phone Number [facility] [place] [address] * (ABNORMAL) Protime-INR (05/30/2019 11:59 PM CDT) Pathologist [facility] PT 17.1(H) 8.6 - 13.0 sec [facility] INR 1.6(H) 0.8 - 1.2 [facility] Comment: Interpretive data Oral anticoagulant therapeutic ranges: Venous thromboembolism prophylaxis or treatment: 2.0-3.0 CARDIOLOGY Standard range: 2.0-3.0 High-intensity range: 2.5-3.5 Refer to indication-specific guidelines for appropriate target ranges for prosthetic heart valve replacement. Current interpretive data was last revised on 2019. Blood specimen (specimen) 05/30/2019 11:59 PM CDT 05/31/2019 12:09 AM CDT Result [facility] Leila Andre NP LAB BLOOD ORDERABLES Sri l Result Performing Organization Address City/[facility] Co de Phone Number [facility] [place] [address] * POCT glucose (05/30/2019 11:41 PM CDT) Glucose, POC 162 70 - 199 mg/dL [facility] Blood specimen (specimen) 05/30/2019 11:41 PM CDT 05/30/2019 11:41 PM CDT Result [facility] Keanu Hwang MD LAB POCT ORDERABLES - DEVIC E Final Result Performing Organization Address [facility] [place] [address] * (ABNORMAL) Hemoglobin A1c (05/30/2019 9:46 PM CDT) Hgb A1C 6.5(H) 4.0 - 5.6 % [facility] Estimated Average Glucose 140 mg/dL [facility] Comment: The ADA recommends reporting an estimated Average Glucose (eAG) with all Hemoglobin A1c results using the equation derived from a study of 507 normal and diabetic adults. ??Minority populations were underrepresented and children were not included. ?? (Diabetes Care 31:0417-2349, 2008). ??The eAG is not equivalent to a fasting glucose. Blood specimen (specimen) 05/30/2019 9:46 PM CDT 05/30/2019 10:16 PM CDT Keanu Hwang MD LAB BLOOD ORDERABLES Final Result Performing Organization Address [facility] [place] [address] * Phosphorus (05/30/2019 9:46 PM CDT) Phosphorus, pl 2.7 2.3 - 4.5 mg/dL [facility] Blood specimen (specimen) 05/30/2019 9:46 PM CDT 05/30/2019 10:12 PM CDT Leila Andre PROGRAM ASSISTANT LAB BLOOD ORDERABLES Sri l Result Performing Organization Address City/[facility] Co de Phone Number [facility] Department [place] [address] * Magnesium (05/30/2019 9:46 PM CDT) [facility] Magnesium 1.8 1.4 - 2.5 mg/dL [facility] Blood specimen (specimen) 05/30/2019 9:46 PM CDT 05/30/2019 10:12 PM CDT Leila Andre NP LAB BLOOD ORDERABLES Sri l Result Performing Organization Address [facility] de Phone Number [facility] [place] [address] * (ABNORMAL) Calcium, ionized (05/30/2019 9:46 PM CDT) [facility] Calcium, Ionized 4.25(L) 4.50 - 5.10 mg/dL [facility] Blood specimen (specimen) 05/30/2019 9:46 PM CDT 05/30/2019 9:54 PM CDT Leila Andre PROGRAM ASSISTANT LAB BLOOD ORDERABLES Sri l Result Performing Organization Address [facility] de Phone Number [facility] [place] [address] * (ABNORMAL) Basic metabolic panel (05/30/2019 9:46 PM CDT) Pathologist [facility] Sodium 132(L) 135 - 145 mmol/L [facility] Potassium, pl 3.6 3.3 - 4.9 mmol/L [facility] Chloride 97 97 - 110 mmol/L [facility] CO2 25 22 - 32 mmol/L [facility] Anion gap 10 2 - 15 mmol/L [facility] BUN 19 8 - 25 mg/dL [facility] Creatinine 0.58(L) 0.60 - 1.10 mg/dL [facility] Glucose 157 70 - 199 mg/dL [facility] Comment: Interpretive Data Fasting glucose >/= 126 [...] 2017. Calcium 8.5 8.5 - 10.3 mg/dL [facility] Blood specimen (specimen) 05/30/2019 9:46 PM CDT 05/30/2019 10:12 PM CDT Leila Andre PROGRAM ASSISTANT LAB BLOOD ORDERABLES Sri davalos Result [facility] Department [place] [address] * (ABNORMAL) CBC without differential (05/30/2019 9:46 PM CDT) WBC 10.3(H) 3.8 - 9.9 K/cumm [facility] Hgb 8.4(L) 11.9 - 15.5 g/dL [facility] Hct 26.9(L) 35.6 - 45.5 % [facility] Plt 338 150 - 400 K/cumm [facility] MPV 10.4 9.1 - 12.3 fL [facility] RBC 2.73(L) 3.90 - 5.20 M/cumm [facility] MCV 98.5(H) 81.3 - 96.4 fL [facility] MCH 30.8 27.1 - 33.3 pg [facility] MCHC 31.2(L) 32.3 - 35.7 g/dL [facility] RDW CV 15.9(H) 11.1 - 14.9 % [facility] RDW SD 54.7(H) 35.7 - 48.1 fL [facility] NRBC abs 0.12(H) 0.00 - 0.01 K/cumm [facility] Blood specimen (specimen) 05/30/2019 9:46 PM CDT 05/30/2019 10:13 PM CDT Narrative [facility] - 05/30/2019 10:20 PM CDT Until heparin is discontinued. Keanu Hwang MD LAB BLOOD ORDERABLES Final Result Performing Organization Address City/[facility]/ZIP Co de Phone Number [facility] Department [place] [address] * POCT glucose (05/30/2019 7:03 PM CDT) Pathologist [facility] Glucose, POC 164 70 - 199 mg/dL [facility] Blood specimen (specimen) 05/30/2019 7:03 PM CDT 05/30/2019 7:03 PM CDT Keanu Hwang MD LAB POCT ORDERABLES - DEVIC E Final Result [facility] Department [place] [address] * (ABNORMAL) aPTT (05/30/2019 5:44 PM CDT) aPTT 64(H) 25 - 37 sec [facility] Comment: Interpretive data Heparin therapeutic range: 60-90 seconds Range based on correlation with therapeutic heparin activity range of 0.3-0.7 units/ml. Current interpretive data was last revised on 2019. Blood specimen (specimen) 05/30/2019 5:44 PM CDT 05/30/2019 5:48 PM CDT Narrative [facility] - 05/30/2019 6:25 PM CDT Draw STAT PTT 6 hrs after initial heparin bolus, after each rate change, and every 6 hours until 2 consecutive PTTs are within therapeutic range. Once two consecutive PTT's are therapeutic (60-94.9 seconds), then draw PTT every AM until heparin is discontinued. us Alessandro Erazo MD LAB BLOOD ORDERABLES Final Resu lt [facility] Department [place] [address] * TRANSTHORACIC ECHO (TTE) COMPLETE W DOPPLER/CF W CONTRAST (05/30/2019 4:39 PM CDT) Anatomical Region Laterality Modality Ultrasound 05/30/2019 12:5 5 PM CDT Narrative 05/30/2019 5:38 PM CDT Patient name: Prema Hodgson Date of test: 05/30/2019 Type of test: TTE w/Doppler [facility] #: [id number] Date of : 1940 (F) King Maker: Roxanne Werner RDCS Referring Physician: LEILA ANDRE MD Contrast Agent: 1.1 ml Optison Administered, (1.9 ml wasted). Contrast Administered by: charlotte velasco Supervised/Interpreted by: Garcia Cline MD. Diagnosis: Location: [facility] Reason for test: Atrial fibrillation (AF) or SVT MV Structure: Normal, ?MV Motion: Normal, ?? Mitral Annulus: moderately calcified AV Structure: tricuspid and is mildly thickened, ?? AV Motion: restricted Aotic root: Normal, ?TM: Normal, ?? PV: Normal Valvular Vegetations: none seen, ?Mass/Thrombi: none seen RA: Normal Measurements: ?M-Mode ?Normal ? Aotic Root: ? <3.8 ? LA: ? <3.8 ? RV: ? <2.8 ? LV(ED): ? <5.7 ? LV(ES): ? Variable ?2D Linear Normal ? Aotic Root: 3.0 cm ?<3.6 ? Ao Indexed: 1.4 cm/M2 <2.0 ? LA: ? <3.8 ? RV: ? 4.2 cm ?<4.2 ? LV(ED): ? 4.3 cm ?<5.3 ? LV(ES): ? 3.4 cm ?<3.5 ?2D Vol. ?? Normal ?Indexed ?? Indexed Normal RA: ? 38.0 ml ? 17.8 ml/M2 ?9-33 ? LA: ? 145.0 ml ?67.8 ml/M2 ?16-34 ? RV: ? 28.0 cm2 ?13.1 cm2/M ?<11.6 ? LV(ED): ? 72.0 ml ?? 46-106 ?33.7 ml/M2 ?<62 ? LV(ES): ? 45.0 ml ?? 14-42 ? 21.1 ml/M2 ?<25 ?3D Vol. ? Indexed Normal LV(ED): ?<62 ? LV(ES): ?<24 ? LV EF: 38 % (Mod. Redd's) ?? (Normal: >=54%) ?? LV Septum: 0.9 cm ?(Normal: <0.9 cm) Wall Motion Scoring (1=Normal 2=Hypo 3=Akinetic 4=Dyskin./Aneurysm 0=Not visualized) Parasternal Long [place]:MAS=2 BAS=2 MP=2 BP=2 Parasternal Short [place]:MAS=2 MS=2 NJ=2 MP=2 ML=2 MA=2 Apical 4 Chambers:=2 MS=2 BS=2 BL=2 NJ=2 AL=2 Apical 2 Chambers:AI=2 NJ=2 BI=2 BA=2 MA=2 AA=2 LV Global Longitudinal Strain: -8% ??(Normal <-19%) RV Global Longitudinal Strain: LV Function: Moderate Global reduction in LV Ejection Fraction (EF=30-40%); EF via modified Redd's. RV Function: moderate global hypokinesis Septal Motion: HYPOKINETIC Pericardial Effusion: none seen Atrial Septum: Normal DOPPLER/COLOR FOLOW DOPPLER RESULTS: Diastolic Function: indeterminate Tricuspid Valve: mild TV regurgitation Pulmonic Valve: normal PV AV Regurgitation: No AR seen AV Stenosis: moderate AV Area: 1.3 cm2 AV Pressure Gradient (mmHg): Mean: 12, Peak:18 MV Regurgitation: Mild MR MV Stenosis: no MS MV Area: ??cm2 MV Pressure Gradient (mmHg): Mean: 0 MV ERO: ??cm Regurg. Vol.: ??ml/beat Regurg. Frac.: ??% PA Pressure: 40 mmHg DOPPLER/COLOR FOLOW DOPPLER COMMENTS: No AR seen, Mild MR, moderate , no MS, mild TV regurgitation, normal PV. Diastolic function: indeterminate LVOT/AV VTI ratio = 16/38 CONTRAST: 1.1 ml Optison Administered, (1.9 ml wasted). SUMMARY: Normal LV chamber size, moderate systolic dysfunction, EF=38%. Marked LAE. Moderate MAC. Mildly dilated RV, moderate RV hypokinesis. Mild KAROL. ??Dilated inferior vena cava. Mild MR and TR. Moderate . Confirmed on ??05/30/2019 - 17:38:09 by Garcia Cline MD. By signing this report, the attending sheet metal worker helper certifies that he or she has personally supervised and interpreted the echocardiogram and has reviewed and or edited and agrees with the written comments contained within the report. Procedure Note Garcia Cline MD - 05/30/2019 Patient name: Prema Hodgson Date of test: 05/30/2019 Type of test: [facility] #: [id number] Date of : 1940 (F) King Maker: Roxanne Werner [facility] Referring Physician: LEILA ANDRE MD Contrast Agent: 1.1 ml Optison Administered, (1.9 ml wasted). Contrast Administered by: charlotte velasco Supervised/Interpreted by: Garcia Cline MD. Diagnosis: Location: [facility] Reason for test: Atrial fibrillation (AF) or SVT MV Structure: Normal, MV Motion: Normal, Mitral Annulus: moderately calcified AV Structure: tricuspid and is mildly thickened, AV Motion: restricted Aotic root: Normal, TM: Normal, PV: Normal Valvular Vegetations: none seen, Mass/Thrombi: none seen RA: Normal Measurements: M-Mode Normal Aotic Root: <3.8 LA: <3.8 RV: <2.8 LV(ED): <5.7 LV(ES): Variable 2D Linear Normal Aotic Root: 3.0 cm <3.6 Ao Indexed: 1.4 cm/M2 <2.0 LA: <3.8 RV: 4.2 cm <4.2 LV(ED): 4.3 cm <5.3 LV(ES): 3.4 cm <3.5 2D Vol. Normal Indexed Indexed Normal RA: 38.0 ml 17.8 ml/M2 9-33 LA: 145.0 ml 67.8 ml/M2 16-34 RV: 28.0 cm2 13.1 cm2/M <11.6 LV(ED): 72.0 ml 46-106 33.7 ml/M2 <62 LV(ES): 45.0 ml 14-42 21.1 ml/M2 <25 3D Vol. Indexed Normal LV(ED): <62 LV(ES): <24 LV EF: 38 % (Mod. Redd's) (Normal: >=54%) LV Septum: 0.9 cm (Normal: <0.9 cm) Wall Motion Scoring (1=Normal 2=Hypo 3=Akinetic 4=Dyskin./Aneurysm 0=Not visualized) Parasternal Long [place]:MAS=2 BAS=2 MP=2 BP=2 Parasternal Short [place]:MAS=2 MS=2 NJ=2 MP=2 ML=2 MA=2 Apical 4 Chambers:=2 MS=2 BS=2 BL=2 NJ=2 AL=2 Apical 2 Chambers:AI=2 NJ=2 BI=2 BA=2 MA=2 AA=2 LV Global Longitudinal Strain: -8% (Normal <-19%) RV Global Longitudinal Strain: LV Function: Moderate Global reduction in LV Ejection Fraction (EF=30-40%); EF via modified Redd's. RV Function: moderate global hypokinesis Septal Motion: HYPOKINETIC Pericardial Effusion: none seen Atrial Septum: Normal DOPPLER/COLOR FOLOW DOPPLER RESULTS: Diastolic Function: indeterminate Tricuspid Valve: mild TV regurgitation Pulmonic Valve: normal PV AV Regurgitation: No AR seen AV Stenosis: moderate AV Area: 1.3 cm2 AV Pressure Gradient (mmHg): Mean: 12, Peak:18 MV Regurgitation: Mild MR MV Stenosis: no MS MV Area: cm2 MV Pressure Gradient (mmHg): Mean: 0 MV ERO: cm Regurg. Vol.: ml/beat Regurg. Frac.: % PA Pressure: 40 mmHg DOPPLER/COLOR FOLOW DOPPLER COMMENTS: No AR seen, Mild MR, moderate , no MS, mild TV regurgitation, normal PV. Diastolic function: indeterminate LVOT/AV VTI ratio = CONTRAST: 1.1 ml Optison Administered, (1.9 ml wasted). SUMMARY: Normal LV chamber size, moderate systolic dysfunction, EF=38%. Marked LAE. Moderate MAC. Mildly dilated RV, moderate RV hypokinesis. Mild KAROL. Dilated inferior vena cava. Mild MR and TR. Moderate . Confirmed on 05/30/2019 - 17:38:09 by Garcia Cline MD. By signing this report, the attending sheet metal worker helper certifies that he or she has personally supervised and interpreted the echocardiogram and has reviewed and or edited and agrees with the written comments contained within the report. Keanu Hwang MD CV ECHO PROCEDURES Final Re sult * POCT glucose (05/30/2019 3:38 PM CDT) Glucose, POC 190 70 - 199 mg/dL [facility] Blood specimen (specimen) 05/30/2019 3:38 PM CDT 05/30/2019 3:38 PM CDT Keanu Hwang MD LAB POCT ORDERABLES - DEVIC E Final Result [facility] [place] [address] * XR Chest 1 View (05/30/2019 1:05 PM CDT) Anatomical Region Laterality Modality Body, Chest N/A Computed Radiogr aphy 05/30/2019 2:28 PM CDT Impressions 05/30/2019 2:29 PM CDT Comparison with radiograph dated 05/21/2019 and 05/03/2010. Trace bilateral pleural effusions. ??Again seen is the right upper lobe nodular opacity, likely representing a calcified granuloma. ??No pneumothorax. ??Mildly enlarged cardiac silhouette. ??Calcified thoracic aorta. Dictated by: Thomas Ross M.D. The radiology attending physician has personally reviewed this study, and had reviewed and/or edited this written report and agrees with it. Electronically signed by: Tommy Dennison M.D. Narrative 05/30/2019 2:29 PM CDT EXAMINATION: 1 view chest radiograph Procedure Note Tommy Dennison MD - 05/30/2019 EXAMINATION: 1 view chest radiograph IMPRESSION: Comparison with radiograph dated 05/21/2019 and 05/03/2010. Trace bilateral pleural effusions. Again seen is the right upper lobe nodular opacity, likely representing a calcified granuloma. No pneumothorax. Mildly enlarged cardiac silhouette. Calcified thoracic aorta. Dictated by: Thomas Ross M.D. The radiology attending physician has personally reviewed this study, and had reviewed and/or edited this written report and agrees with it. Electronically signed by: Tommy Dennison M.D. us Leila Benitez Burtaber PROGRAM ASSISTANT IMG XR PROCEDURES Final R esult * Critical Care (05/30/2019 11:36 AM CDT) Miguel Porter MD PhD - 05/30/2019 11:36 AM CDT Miguel Centeno MD PhD ? 05/30/2019 ??5:18 PM Critical Care Performed by: Miguel Centeno MD PhD Authorized by: Miguel Centeno MD PhD CRITICAL CARE: ??Team: ??SICU RED ??Shift: ??AM ??Level of Billing: ??Critical Care ??My time spent with this patient was 40 minutes: Critical Provider Statement: I have seen and examined the patient on this day of service. I have reviewed and confirmed the history, physical exam, laboratory and radiologic data as documented in the signed ICU note. I have reviewed and discussed my treatment plan with the ICU team and other medical/learning consultant staff, making frequent assessments and decisions regarding this patient's complex medical care. Critical Care time was exclusive of time spent performing separately billed procedures, treating other patients, and teaching. This time was in addition to and separate from critical care provided by other practitioners in my group on this day of service. Critical Care was necessary to treat or prevent imminent or life-threatening deterioration of the following conditions: ? Acute pain/acute postoperative pain ?? Atrial fibrillation with rapid ventricular rate ?? Acute respiratory insufficiency and Pulmonary embolus ?? Acute kidney injury, Acute electrolyte derangement and Hypo- or Hyperglycemia ?? Severe undifferentiated anemia ??This time was spent by me doing the following: ? Acute pain control ?? Initiation/active titration of anti-arrhythmic or rate controlling agent ?? Active and frequent reassessment of respiratory status and oxygen requirements ?? Active and frequent monitoring of intake/output and volumen status and Glycemic control ?? Active diuresis ?? Initiation/monitoring/titration of anticoagulants ?? I spent time reviewing and interpreting data from bedside monitors, laboratory results, and imaging, I spent time discussing the management of this critically ill patient with consultants and the medical staff and I spent time documenting in the medical record us Miguel Centeno MD PhD IN CLINIC/BEDSIDE ORDERABLES Final Result * (ABNORMAL) POCT glucose (05/30/2019 11:26 AM CDT) Glucose, POC 233(H) 70 - 199 mg/dL [facility] Glucose comment 1 RN Notified [facility] Blood specimen (specimen) 05/30/2019 11:26 AM CDT 05/30/2019 11:26 AM CDT Keanu Hwang MD LAB POCT ORDERABLES - DEVIC E Final Result Performing Organization Address City/State/[facility] Co de Phone Number [facility] Department [place] [address] * US Vein Duplex Lower Extremity Bilateral Complete (05/30/2019 10:44 AM CDT) Anatomical Region Laterality Modality Vascular Bilateral Ultrasound 05/30/2019 9:31 AM CDT Narrative 06/02/2019 3:21 PM CDT [facility] - Department of Vascular Surgery, Vascular Laboratory [address] [place] [address] Lower Extremity Venous Ultrasound Report Patient Name: PREMA HODGSON A : [birth year] (79y 3m) Study Date: 05/30/2019 9:31:52 AM Gender: F Tech: Location: [id number] Ref.Provider: KEANU HWANG Quality: Adequate Order Provider: KEANU HWANG Procedures: Vascular Report: Venous Duplex imaging was performed bilaterally in the lower extremities. The common femoral, femoral, popliteal, posterior tibial, peroneal veins were evaluated for patency, spontaneity and phasicity with Doppler, compression and augmentation maneuvers. Great saphenous vein proximal at the junction was evaluated with compression maneuvers. Indications: Other pulmonary embolism without acute cor pulmonale. Findings: Performing King Maker: Ingrid Herman RVT. Right: Duplex scan reveals dilated vein with echogenic, intraluminal, non-compressible material consistent with acute deep vein thrombosis in the right lower extremity. Deep veins involved include the right peroneal veins and soleal sinus veins. All other evaluated veins on the right are patent. Left: Venous Doppler signals in the left lower extremity are within normal limits for spontaneity and phasicity and respond normally to augmentation maneuvers in all imaged vessels. Unable to image the left femoral vein distal, popliteal, and calf veins due to bandaging. Provider Notification: Results called to Dr Alvarez. Time called 10:30am. Conclusions: 1. There is acute deep vein thrombosis involving vein(s) as noted above in the right lower extremity. 2. There is no evidence of acute deep vein thrombosis on the left. Unable to image the left femoral vein distal, popliteal, and calf veins due to bandaging. History: AF, HTN, Obesity. Previous Studies: No previous studies for comparison. Disclaimer: The signing physician has reviewed all images pertaining to this test. These images and this report will be retained in the patient chart by the Vascular Laboratory for the legally required time period. This chart constitutes the legal record of any testing performed. Electronically Signed By: Emile Zavaleta MD [facility] [phone] 2019-06-02 15:21:38 CDT CC: CC: Procedure Note Emile Zavaleta MD - 06/02/2019 [facility] - Department of Vascular Surgery,Vascular Laboratory [address] [place] [address] Lower Extremity Venous Ultrasound Report Patient Name: PREMA HODGSON A : 1940 (79y 3m) Study Date: 05/30/2019 9:31:52 AM Gender: F Tech: Location: [id number] Ref.Provider: KEANU HWANG Quality: Adequate Order Provider: KEANU HWANG Procedures: Vascular Report: Venous Duplex imaging was performed bilaterally in the lower extremities.The common femoral, femoral, popliteal, posterior tibial, peroneal veins wereevaluated for patency, spontaneity and phasicity with Doppler, compression and augmentationmaneuvers. Great saphenous vein proximal at the junction was evaluated with compressionmaneuvers. Indications: Other pulmonary embolism without acute cor pulmonale. Findings: Performing King Maker: Ingrid Herman RVT. Right: Duplex scan reveals dilated vein with echogenic, intraluminal,non-compressible material consistent with acute deep vein thrombosis in the right lower extremity.Deep veins involved include the right peroneal veins and soleal sinus veins. Allother evaluated veins on the right are patent. Left: Venous Doppler signals in the left lower extremity are within normallimits for spontaneity and phasicity and respond normally to augmentation maneuversin all imaged vessels. Unable to image the left femoral vein distal, popliteal, and calfveins due to bandaging. Provider Notification: Results called to Dr Alvarez. Time called 10:30am. Conclusions: 1. There is acute deep vein thrombosis involving vein(s) as noted above inthe right lower extremity. 2. There is no evidence of acute deep vein thrombosis on the left. Unableto image the left femoral vein distal, popliteal, and calf veins due to bandaging. History: AF, HTN, Obesity. Previous Studies: No previous studies for comparison. Disclaimer: The signing physician has reviewed all images pertaining to this test.These images and this report will be retained in the patient chart by the [facility] for the legally required time period. This chart constitutes the legal record ofany testing performed. Electronically Signed By: Emile Zavaleta MD [facility] [phone] 2019-06-02 15:21:38 CDT CC: CC: us Keanu Hwang MD IM US PROCEDURES Final Res ult * (ABNORMAL) aPTT (05/30/2019 10:26 AM CDT) aPTT 55(H) 25 - 37 sec [facility] Comment: Interpretive data Heparin therapeutic range: 60-90 seconds Range based on correlation with therapeutic heparin activity range of 0.3-0.7 units/ml. Current interpretive data was last revised on 2019. Blood specimen (specimen) 05/30/2019 10:26 AM CDT 05/30/2019 10:32 AM CDT Narrative [facility] - 05/30/2019 10:56 AM CDT Draw STAT PTT 6 hrs after initial heparin bolus, after each rate change, and every 6 hours until 2 consecutive PTTs are within therapeutic range. Once two consecutive PTT's are therapeutic (60-94.9 seconds), then draw PTT every AM until heparin is discontinued. Alessandro Erazo MD LAB BLOOD ORDERABLES Final Resu lt Performing Organization Address [facility] Co de Phone Number [facility] [place] [address] * POCT glucose (05/30/2019 7:33 AM CDT) Glucose, POC 163 70 - 199 mg/dL [facility] Blood specimen (specimen) 05/30/2019 7:33 AM CDT 05/30/2019 7:33 AM CDT Keanu Hwang MD LAB POCT ORDERABLES - DEVIC E Final Result Performing Organization Address [facility] Co de Phone Number [facility] [place] [address] * (ABNORMAL) aPTT (05/30/2019 4:48 AM CDT) aPTT 63(H) 25 - 37 sec [facility] Comment: Interpretive data Heparin therapeutic range: 60-90 seconds Range based on correlation with therapeutic heparin activity range of 0.3-0.7 units/ml. Current interpretive data was last revised on 2019. Blood specimen (specimen) 05/30/2019 4:48 AM CDT 05/30/2019 4:56 AM CDT Narrative [facility] - 05/30/2019 5:20 AM CDT Draw STAT PTT 6 hrs after initial heparin bolus, after each rate change, and every 6 hours until 2 consecutive PTTs are within therapeutic range. Once two consecutive PTT's are therapeutic (60-94.9 seconds), then draw PTT every AM until heparin is discontinued. Alessandro Erazo MD LAB BLOOD ORDERABLES Final Resu lt Performing Organization Address [facility] Co de Phone Number [facility] Department [place] [address] * (ABNORMAL) Troponin I (05/30/2019 3:19 AM CDT) [facility] Troponin I 0.08(H) 0.00 - 0.03 ng/mL [facility] Comment: Interpretive Data: Normal plasma Troponin I [...] for Troponin assay. References: 1. Clin Chem 2013;[id number] 2. Journal of the [employer] 2012;60:1581-98 Current Interpretive Data Last Revised Date: 2017. Blood specimen (specimen) 05/30/2019 3:19 AM CDT 05/30/2019 3:27 AM CDT Keanu Hwang MD LAB BLOOD ORDERABLES Final Result Performing Organization Address [facility] Co de Phone Number [facility] Department [place] [address] * POCT glucose (05/30/2019 3:09 AM CDT) Pathologist [facility] Glucose, POC 176 70 - 199 mg/dL [facility] Blood specimen (specimen) 05/30/2019 3:09 AM CDT 05/30/2019 3:09 AM CDT Keanu Hwang MD LAB POCT ORDERABLES - DEVIC E Final Result Performing Organization Address City/[facility] Co de Phone Number [facility] Department [place] [address] * (ABNORMAL) POCT glucose (05/30/2019 12:30 AM CDT) Glucose, POC 200(H) 70 - 199 mg/dL [facility] Blood specimen (specimen) 05/30/2019 12:30 AM CDT 05/30/2019 12:30 AM CDT Keanu Hwang MD LAB POCT ORDERABLES - DEVIC E Final Result Performing Organization Address [facility] de Phone Number [facility] Department [place] [address] * Critical Care (05/29/2019 11:23 PM CDT) Narrative Irais Holguin MD - 05/29/2019 11:23 PM CDT Irais Holguin MD ? 05/30/2019 ??8:25 PM Critical Care Performed by: Irais Holguin MD Authorized by: Irais Holguin MD CRITICAL CARE: ??Team: ??SICU RED ??Shift: ??PM ??Level of Billing: ??Critical Care ??My time spent with this patient was 40 minutes: Critical Provider Statement: I have seen and examined the patient on this day of service. I have reviewed and confirmed the history, physical exam, laboratory and radiologic data as documented in the signed ICU note. I have reviewed and discussed my treatment plan with the ICU team and other medical/learning consultant staff, making frequent assessments and decisions regarding this patient's complex medical care. Critical Care time was exclusive of time spent performing separately billed procedures, treating other patients, and teaching. This time was in addition to and separate from critical care provided by other practitioners in my group on this day of service. Critical Care was necessary to treat or prevent imminent or life-threatening deterioration of the following conditions: ? Acute pain/acute postoperative pain ?? Demand ischemia/elevated troponins and Atrial fibrillation with rapid ventricular rate ?? Thromboembolism/DVT ??This time was spent by me doing the following: ? Acute pain control ?? Initiation/active titration of anti-arrhythmic or rate controlling agent ?? Glycemic control ?? Initiation/monitoring/titration of anticoagulants ?? I spent time reviewing and interpreting data from bedside monitors, laboratory results, and imaging, I spent time discussing the management of this critically ill patient with consultants and the medical staff and I spent time documenting in the medical record us Irais Holguin MD IN CLINIC/BEDSIDE ORDERAB LES Final Result * Differential, auto (05/29/2019 9:42 PM CDT) Neutrophil abs 5.9 1.7 - 6.5 K/cumm [facility] Imm gran abs 0.1 0.0 - 0.1 K/cumm [facility] Lymphocyte abs 1.9 0.8 - 3.3 K/cumm [facility] Monocyte abs 0.7 0.2 - 0.8 K/cumm [facility] Eosinophil abs 0.0 0.0 - 0.5 K/cumm [facility] Basophil abs 0.0 0.0 - 0.1 K/cumm [facility] Neutrophil pct 68.9 % [facility] Comment: Interpretive Data Percent cell count reference ranges are not reported, since discordance with absolute values may lead to misinterpretation of CBC data. Current Interpretive Data was last revised on 2017. Imm gran pct 0.7 % [facility] Comment: Interpretive Data Percent cell count reference ranges are not reported, since discordance with absolute values may lead to misinterpretation of CBC data. Current Interpretive Data was last revised on 2017. Lymphocyte pct 21.9 % [facility] Comment: Interpretive Data Percent cell count reference ranges are not reported, since discordance with absolute values may lead to misinterpretation of CBC data. Current Interpretive Data was last revised on 2017. Monocyte pct 8.2 % [facility] Comment: Interpretive Data Percent cell count reference ranges are not reported, since discordance with absolute values may lead to misinterpretation of CBC data. Current Interpretive Data was last revised on 2017. Eosinophil pct 0.2 % [facility] Comment: Interpretive Data Percent cell count reference ranges are not reported, since discordance with absolute values may lead to misinterpretation of CBC data. Current Interpretive Data was last revised on 2017. Basophil pct 0.1 % [facility] Comment: Interpretive Data Percent cell count reference ranges are not reported, since discordance with absolute values may lead to misinterpretation of CBC data. Current Interpretive Data was last revised on 2017. Blood specimen (specimen) 05/29/2019 9:42 PM CDT 05/29/2019 9:52 PM CDT Result [facility] Keanu Hwang MD LAB BLOOD ORDERABLES Final Result Performing Organization Address [facility] de Phone Number [facility] [place] [address] * (ABNORMAL) Protime-INR (05/29/2019 9:42 PM CDT) PT 17.8(H) 8.6 - 13.0 sec [facility] INR 1.6(H) 0.8 - 1.2 [facility] Comment: Interpretive data Oral anticoagulant therapeutic ranges: Venous thromboembolism prophylaxis or treatment: 2.0-3.0 CARDIOLOGY Standard range: 2.0-3.0 High-intensity range: 2.5-3.5 Refer to indication-specific guidelines for appropriate target ranges for prosthetic heart valve replacement. Current interpretive data was last revised on 2019. Blood specimen (specimen) 05/29/2019 9:42 PM CDT 05/29/2019 9:49 PM CDT Result [facility] Keanu Hwang MD LAB BLOOD ORDERABLES Final Result Performing Organization Address [facility] de Phone Number [facility] [place] [address] * (ABNORMAL) aPTT (05/29/2019 9:42 PM CDT) aPTT 103(H) 25 - 37 sec [facility] Comment: Interpretive data Heparin therapeutic range: 60-90 seconds Range based on correlation with therapeutic heparin activity range of 0.3-0.7 units/ml. Current interpretive data was last revised on 2019. Blood specimen (specimen) 05/29/2019 9:42 PM CDT 05/29/2019 9:49 PM CDT Keanu Hwang MD LAB BLOOD ORDERABLES Final Result [facility] Department [place] [address] * (ABNORMAL) CBC with auto differential (05/29/2019 9:42 PM CDT) [facility] WBC 8.5 3.8 - 9.9 K/cumm [facility] Hgb 8.1(L) 11.9 - 15.5 g/dL [facility] Hct 25.6(L) 35.6 - 45.5 % [facility] Plt 268 150 - 400 K/cumm [facility] MPV 10.5 9.1 - 12.3 fL [facility] RBC 2.58(L) 3.90 - 5.20 M/cumm [facility] MCV 99.2(H) 81.3 - 96.4 fL [facility] MCH 31.4 27.1 - 33.3 pg [facility] MCHC 31.6(L) 32.3 - 35.7 g/dL [facility] RDW CV 15.5(H) 11.1 - 14.9 % [facility] RDW SD 54.6(H) 35.7 - 48.1 fL [facility] NRBC abs 0.08(H) 0.00 - 0.01 K/cumm [facility] Blood specimen (specimen) 05/29/2019 9:42 PM CDT 05/29/2019 9:52 PM CDT Keanu Hwang MD LAB BLOOD ORDERABLES Final Result [facility] [place] [address] * (ABNORMAL) Pro B-type natriuretic peptide (05/29/2019 9:42 PM CDT) NT-proBNP 7,985(H) <=450 pg/mL [facility] Comment: Interpretive Comments: A. Dyspnea in Acute [...] Last Revised Date: 2017. Blood specimen (specimen) 05/29/2019 9:42 PM CDT 05/29/2019 9:52 PM CDT Keanu Hwang MD LAB BLOOD ORDERABLES Final Result Performing Organization Address City/[facility] Co de Phone Number [facility] [place] [address] * Phosphorus (05/29/2019 9:42 PM CDT) [facility] Phosphorus, pl 3.3 2.3 - 4.5 mg/dL [facility] Blood specimen (specimen) 05/29/2019 9:42 PM CDT 05/29/2019 9:52 PM CDT Keanu Hwang MD LAB BLOOD ORDERABLES Final Result Performing Organization Address [facility] [place] [address] * Magnesium (05/29/2019 9:42 PM CDT) [facility] Magnesium 1.6 1.4 - 2.5 mg/dL [facility] Blood specimen (specimen) 05/29/2019 9:42 PM CDT 05/29/2019 9:52 PM CDT Keanu Hwang MD LAB BLOOD ORDERABLES Final Result Performing Organization Address [facility] de Phone Number [place], [place] [id number] * (ABNORMAL) Basic metabolic panel (05/29/2019 9:42 PM CDT) Pathologist [facility] Sodium 133(L) 135 - 145 mmol/L [facility] Potassium, pl 4.3 3.3 - 4.9 mmol/L [facility] Chloride 102 97 - 110 mmol/L [facility] CO2 24 22 - 32 mmol/L [facility] Anion gap 7 2 - 15 mmol/L [facility] BUN 24 8 - 25 mg/dL [facility] Creatinine 0.66 0.60 - 1.10 mg/dL [facility] Glucose 220(H) 70 - 199 mg/dL [facility] Comment: Interpretive Data Fasting glucose >/= 126 [...] interpretive data was last revised 2017. Calcium 8.3(L) 8.5 - 10.3 mg/dL [facility] Blood specimen (specimen) 05/29/2019 9:42 PM CDT 05/29/2019 9:52 PM CDT Keanu Hwang MD LAB BLOOD ORDERABLES Final Result [facility] [place] [address] * Infection Prevention MRSA Only (Staphylococcus aureus) Culture Nasal (05/29/2019 9:42 PM CDT) Report Final Report: Negative [facility] Nasal 05/29/2019 9:42 PM CDT 05/29/2019 9:56 PM CDT Narrative [facility] - 05/31/2019 7:17 AM CDT Testing performed by [facility] ([phone]). Keanu Hwang MD LAB MICROBIOLOGY - GENERAL ORDERABLES Final Result Performing Organization Address City/[facility]/ZIP Co de Phone Number [facility] Department [place] [address] * ECG 12 lead (05/29/2019 9:27 PM CDT) [facility] Ventricular Rate EKG/Min 114 BPM [facility] Atrial Rate 110 BPM [facility] QRS-Interval (MSEC) 106 ms [facility] QT-Interval (MSEC) 374 ms [facility] QTc 515 ms [facility] R [place] 74 degrees [facility] T [place] 214 degrees [facility] Diagnosis Atrial fibrillation with rapid ventricular response T wave abnormality, consider anterior ischemia Abnormal ECG When compared with ECG of 27-MAY-2019 03:54, (unconfirmed) Inverted T waves have replaced nonspecific T wave abnormality in Anterior leads Confirmed by GREGORY CLINE M.D ([id number]) on 06/08/2019 10:10:10 AM [facility] 05/29/2019 9:27 PM CDT 06/08/2019 10:10 AM CDT Keanu Hwang MD ECG ORDERABLES Final Resul t Performing Organization Address [facility] Co de Phone Number [facility] * (ABNORMAL) POCT glucose (05/29/2019 9:23 PM CDT) Glucose, POC 230(H) 70 - 199 mg/dL [facility] Blood specimen (specimen) 05/29/2019 9:23 PM CDT 05/29/2019 9:23 PM CDT Keanu Hwang MD LAB POCT ORDERABLES - DEVIC E Final Result Performing Organization Address City/[facility]/ZIP Co de Phone Number [facility] [place] [address] documented in this encounter Visit Diagnoses Diagnosis Atrial fibrillation with RVR (CMS/HCC) (HCC)- Primary Atrial fibrillation with RVR (CMS/HCC) (HCC) Acute pulmonary embolism with acute cor pulmonale (HCC) Hypothyroidism, unspecified Obstructive sleep apnea Obstructive sleep apnea (adult) (pediatric) Diabetes mellitus type II, controlled (HCC) Type II or unspecified type diabetes mellitus without mention of complication, not stated as uncontrolled Hypertension, essential Unspecified essential hypertension Left femoral fracture documented in this encounter Administered Medications Inactive Administered Medications - up to 3 most recent administrations Medication Order MAR Action Action Date Dose Rate Site acetaminophen (TYLENOL) tablet 1,000 mg 1,000 mg, oral, Every 6 hours PRN, 1st line for pain, Starting on Thu05/29/19 at 2237 Given 06/05/2019 2:53 PM CDT 1,000 mg Given 06/05/2019 4:06 AM CDT 1,000 mg Given 06/04/2019 3:08 PM CDT 1,000 mg ALPRAZolam (XANAX) tablet 0.25 mg 0.25 mg, oral, Once, On Thu06/05/19 at 1130, For 1 dose Given 06/05/2019 11:40 AM CDT 0.25 mg amiodarone (NEXTERONE) 150 mg/100 mL (1.5 mg/mL) in dextrose (premix) 150 mg 150 mg, intravenous, at 600 mL/hr, Administer over 10 Minutes, Once, On Thu05/29/19 at 2215, For 1 dose, Use filter 0.22 micron or less New Bag 05/29/2019 9:50 PM CDT 150 mg 600 mL/hr amiodarone in dextrose (NEXTERONE) 360 mg/200 mL (1.8 mg/mL) infusion (premix) 1 mg/min (33.3333 mL/hr, rounded to 33.3 mL/hr), 1.8 mg/mL, intravenous, Continuous, Starting on Thu05/29/19 at 2215, Until 05/30/19 at 0350, Use filter 0.22 micron or less, Routine New Bag 05/30/2019 3:13 AM CDT 1 mg/min 33.3 mL/hr Rate/Dose Verify 05/30/2019 3:00 AM CDT 1 mg/min 33.3 mL /hr Rate/Dose Verify 05/30/2019 2:00 AM CDT 1 mg/min 33.3 mL /hr amiodarone in dextrose (NEXTERONE) 360 mg/200 mL (1.8 mg/mL) infusion (premix) 0.5 mg/min (16.6667 mL/hr, rounded to 16.67 mL/hr), 1.8 mg/mL, intravenous, Continuous, Starting on Thu05/30/19 at 0351, Until Thu05/30/19 at 2150, Use filter 0.22 micron or less, Routine Rate/Dose Verify 05/30/2019 6:00 PM CDT 0.5 mg/min 16.67 mL/hr Rate/Dose Verify 05/30/2019 5:00 PM CDT 0.5 mg/min 16.67 m L/hr Rate/Dose Verify 05/30/2019 4:00 PM CDT 0.5 mg/min 16.67 m L/hr calcium carbonate (TUMS) chewable tablet 1,000 mg 1,000 mg (400 mg of elemental calcium), oral, 3 times daily PRN, indigestion, heartburn, Starting on Thu05/30/19 at 0222 Given 06/01/2019 11:14 PM CDT 1,000 mg Given 05/31/2019 1:39 AM CDT 1,000 mg Given 05/30/2019 11:46 PM CDT 1,000 mg calcium gluconate 3 g in sodium chloride 0.9% 100 mL IVPB 3 g, intravenous, at 130 mL/hr, Administer over 60 Minutes, Once, On Thu05/30/19 at 2330, For 1 dose, Indications: hypocalcemiaIndications:hypocalcemi a New Bag 05/31/2019 12:46 AM CDT 3 g 130 mL/hr carvediloL (COREG) tablet 25 mg 25 mg, oral, 2 times daily, First dose on Thu06/03/19 at 2100 Given 06/05/2019 9:11 AM CDT 25 mg Given 06/04/2019 8:05 PM CDT 25 mg Given 06/04/2019 8:05 AM CDT 25 mg cholecalciferol (VITAMIN D-3) capsule 2,000 Units 2,000 Units, oral, Daily, First dose on Thu05/30/19 at 0900 Given 06/05/2019 9:11 AM CDT 2,000 Units Given 06/04/2019 8:04 AM CDT 2,000 Units Given 06/03/2019 8:08 AM CDT 2,000 Units dextrose 5% and Lactated Ringer's infusion 25 mL/hr, intravenous, Continuous, Starting on Thu05/29/19 at 2300 Rate/Dose Verify 05/30/2019 11:00 AM CDT 25 mL/hr 25 mL/hr Rate/Dose Verify 05/30/2019 10:00 AM CDT 25 mL/hr 25 mL/ hr Rate/Dose Verify 05/30/2019 9:00 AM CDT 25 mL/hr 25 mL/h r DULoxetine DR (CYMBALTA) extended release capsule 60 mg 60 mg, oral, Daily, First dose on Thu05/30/19 at 0900, Capsule may be opened and contents mixed with applesauce or apple juice ONLY. Do not crush, chew, cut, dissolve, open or otherwise manipulate tablet/capsule. Given 06/05/2019 9:11 AM CDT 60 mg Given 06/04/2019 8:05 AM CDT 60 mg Given 06/03/2019 8:08 AM CDT 60 mg famotidine (PEPCID) tablet 20 mg 20 mg, oral, Once, On Thu05/31/19 at 0215, For 1 dose Given 05/31/2019 1:48 AM CDT 20 mg furosemide (LASIX) 10 mg/mL injection 20 mg 20 mg, intravenous, Administer over 1 Minutes, Once, On Thu05/30/19 at 1400, For 1 dose, Room temperature only Given 05/30/2019 1:36 PM CDT 20 mg furosemide (LASIX) 10 mg/mL injection 20 mg 20 mg, intravenous, Administer over 1 Minutes, Once, On Thu05/31/19 at 0330, For 1 dose, Room temperature only Given 05/31/2019 3:08 AM CDT 20 mg furosemide (LASIX) tablet 20 mg 20 mg, oral, Daily, First dose on Thu05/31/19 at 0900 Given 06/02/2019 8:00 AM CDT 20 mg Given 06/01/2019 8:02 AM CDT 20 mg Given 05/31/2019 8:32 AM CDT 20 mg furosemide (LASIX) tablet 20 mg 20 mg, oral, 2 times daily (for diuretics), First dose (after last modification) on Thu06/02/19 at 1600 Given 06/05/2019 9:11 AM CDT 20 mg Given 06/04/2019 3:08 PM CDT 20 mg Given 06/04/2019 8:05 AM CDT 20 mg heparin in 0.45% sodium chloride 25,000 units/250 mL (100 units/mL) infusion (premix) 1-33 Units/kg/hr ? 90.7 kg (0.907-29.931 mL/hr, rounded to 0.91-29.93 mL/hr), intravenous, Titrated, Starting on Thu05/29/19 at 2215, Initial Rate 14 units/kg/hour Adjust infusion based upon nomogram: PTT less [...] decrease infusion rate 1 unit/kg/hour PTT 105 -114.9 seconds: Hold infusion for 30 minutes, then [...] every AM until heparin is discontinued., Indications: atrial fibrillationIndications:a trial fibrillation Rate/Dose Verify 06/04/2019 7:10 AM CDT 14 Units/kg/hr 12.7 mL/hr New Bag 06/04/2019 5:23 AM CDT 14 Units/kg/hr 12.7 mL/h r Rate/Dose Verify 06/03/2019 10:18 PM CDT 14 Units/kg/hr 12 .7 mL/hr hydroCHLOROthiazide (HYDRODIURIL) tablet 25 mg 25 mg, oral, Daily, First dose on 05/30/19 at 0900 Given 05/30/2019 8:11 AM CDT 25 mg insulin glargine (LANTUS) injection 10 Units 10 Units, subcutaneous, Every morning, First dose on Thu05/31/19 at 0900, Do not mix with other insulins Given 06/05/2019 10:49 AM CDT 10 Units Left Upper Arm Given 06/04/2019 8:04 AM CDT 10 Units Ri ght Upper Abdomen Given 06/03/2019 8:07 AM CDT 10 Units Le ft Lower Abdomen insulin lispro (HumaLOG) injection 1-3 Units 1-3 Units, subcutaneous, Nightly, First dose on Thu05/31/19 at 2100, Blood Sugar Mid Dose PM - PO patients 175 or less No insulin 176 - 200 1 unit 201 - 250 2 units 251 - 299 3 units Greater than 299 Call MD for hyperglycemia management instructions Do NOT hold for NPO status., Indications: Diabetes MellitusIndications:Diabetes Mellitus Given 06/04/2019 8:05 PM CDT 2 Units Left Lower Abdomen Given 06/03/2019 8:39 PM CDT 2 Units Le ft Lower Abdomen Given 06/02/2019 10:20 PM CDT 1 Units L eft Lower Abdomen insulin lispro (HumaLOG) injection 1-5 Units 1-5 Units, subcutaneous, Every 4 hours scheduled, First dose on Thu05/30/19 at 0000, Blood Sugar Mid Dose - Surgical/Post-Op ICU 139 or less No insulin 140 - 175 1 unit 176 - 200 2 unit 201 - 250 3 units 251 - 299 5 units Greater than 299 Call MD for hyperglycemia management instructions Do NOT hold for NPO status., Indications: Diabetes MellitusIndications:Diabetes Mellitus Given 05/30/2019 8:10 AM CDT 1 Units Left Lower Abdomen Given 05/30/2019 3:24 AM CDT 2 Units Le ft Lower Abdomen Given 05/30/2019 12:33 AM CDT 2 Units L eft Lower Abdomen insulin lispro (HumaLOG) injection 1-5 Units 1-5 Units, subcutaneous, 3 times daily with meals, First dose on Thu05/31/19 at 1200, Blood Sugar Mid Dose meal time - PO patients 139 or less No insulin 140 - 175 1 unit 176 - 200 2 unit 201 - 250 3 units 251 - 299 5 units Greater than 299 Call MD for hyperglycemia management instructions Do NOT hold for NPO status., Indications: Diabetes MellitusIndications:Diabetes Mellitus Given 06/05/2019 9:12 AM CDT 1 Units Left Upper Arm Given 06/04/2019 5:23 PM CDT 1 Units Ri ght Upper Arm Given 06/04/2019 11:43 AM CDT 3 Units L eft Upper Arm insulin lispro (HumaLOG) injection 2-7 Units 2-7 Units, subcutaneous, Every 4 hours scheduled, First dose on Thu05/30/19 at 1230, Blood Sugar High Dose - Surgical/Post-Op ICU 139 or less No insulin 140 - 175 2 unit 176 - 200 3 unit 201 - 250 5 units 251 - 299 7 units Greater than 299 Call MD for hyperglycemia management instructions Do NOT hold for NPO status., Indications: Diabetes MellitusIndications:Diabetes Mellitus Given 05/31/2019 8:30 AM CDT 3 Units Left Lower Abdomen Given 05/31/2019 3:10 AM CDT 3 Units Le ft Upper Arm Given 05/30/2019 11:46 PM CDT 2 Units L eft Upper Arm levothyroxine (SYNTHROID) tablet 25 mcg 25 mcg, oral, Daily, First dose on Thu05/30/19 at 0900, Administer on an empty stomach, preferably 30 minutes before breakfast. Take 4 hours apart from antacids, iron and calcium products. Given 06/05/2019 9:11 AM CDT 25 mcg Given 06/04/2019 8:05 AM CDT 25 mcg Given 06/03/2019 8:09 AM CDT 25 mcg lovastatin (MEVACOR) tablet 10 mg 10 mg, oral, Nightly, First dose on Thu05/31/19 at 2100, Take with food Given 06/04/2019 8:05 PM CDT 10 mg Given 06/03/2019 8:39 PM CDT 10 mg Given 06/02/2019 10:20 PM CDT 10 mg magnesium oxide (MAG-OX) tablet 800 mg 800 mg, oral, 2 times daily, First dose on Thu05/30/19 at 2330, For 2 doses, 1 tablet = Magnesium oxide 400 mg = 241.3 mg elemental magnesium, Indications: hypomagnesemiaIndications:hypomagnesemia Given 05/31/2019 8:33 AM CDT 800 mg Given 05/30/2019 11:46 PM CDT 800 mg magnesium sulfate 2 g/50 mL in water (premix) 2 g 2 g, intravenous, Administer over 60 Minutes, Once, On Thu05/29/19 at 2315, For 1 dose, Indications: hypomagnesemiaIndications:hypomagnesemia New Bag 05/29/2019 10:47 PM CDT 2 g metoprolol (LOPRESSOR) tablet 12.5 mg 12.5 mg, oral, 2 times daily, First dose on Thu05/30/19 at 0900 Given 05/30/2019 8:11 AM CDT 12.5 mg metoprolol (LOPRESSOR) tablet 12.5 mg 12.5 mg, oral, Every 6 hours scheduled, First dose (after last modification) on Thu05/30/19 at 1400 Given 05/31/2019 3:08 AM CDT 12.5 mg Given 05/30/2019 8:02 PM CDT 12.5 mg Given 05/30/2019 1:36 PM CDT 12.5 mg metoprolol (LOPRESSOR) tablet 25 mg 25 mg, oral, Every 6 hours scheduled, First dose (after last modification) on Thu05/31/19 at 1000 Given 06/01/2019 4:53 AM CDT 25 mg Given 05/31/2019 8:57 PM CDT 25 mg Given 05/31/2019 4:00 PM CDT 25 mg metoprolol (LOPRESSOR) tablet 50 mg 50 mg, oral, Every 6 hours scheduled, First dose (after last modification) on Thu06/01/19 at 1000 Given 06/03/2019 9:34 AM CDT 50 mg Given 06/03/2019 4:46 AM CDT 50 mg Given 06/02/2019 10:20 PM CDT 50 mg multivit kuupxzid-lclc-AA-calcium (THERA-M) tablet 1 tablet 1 tablet, oral, Daily, First dose on Thu05/30/19 at 0900 Given 06/05/2019 9:11 AM CDT 1 tablet Given 06/04/2019 8:05 AM CDT 1 tablet Given 06/03/2019 8:08 AM CDT 1 tablet ondansetron (ZOFRAN) injection 4 mg 4 mg, intravenous, Administer over 2 Minutes, Every 6 hours PRN, nausea, vomiting, Starting on 05/29/19 at 2128, Indications: nausea and vomitingIndications:nausea and vomiting oxyCODONE (ROXICODONE) tablet 5 mg 5 mg, oral, Every 4 hours PRN, 2nd line for pain, Starting on Thu05/29/19 at 2237, Indications: PainIndications:Pain Given 06/04/2019 8:34 PM CDT 5 mg Given 06/03/2019 4:06 PM CDT 5 mg Given 06/02/2019 5:42 PM CDT [address] (PROTONIX) extended release tablet 40 mg 40 mg, oral, Daily, First dose on Thu05/31/19 at 0900, Do not crush, chew, cut, dissolve, open or otherwise manipulate tablet/capsule., Indications: Treatment of Non-Bleeding Gastric DisorderIndications:Treatment of Non-Bleeding Gastric Disorder Given 06/05/2019 9:11 AM CDT 40 mg Given 06/04/2019 8:05 AM CDT 40 mg Given 06/03/2019 8:09 AM CDT 40 mg potassium chloride ER (KLOR-CON) extended release tablet 40 mEq 40 mEq, oral, Every 4 hours, First dose on Thu06/01/19 at 2245, For 2 doses, Total dose = 80 mEq Do not crush, chew, cut, dissolve, open or otherwise manipulate tablet/capsule. Given 06/02/2019 3:06 AM CDT 40 mEq Given 06/01/2019 10:19 PM CDT 40 mEq potassium, sodium phosphates (PHOS-NAK) 280-160-250 mg packet 2 packet 2 packet, oral, 3 times daily before meals, First dose on Thu05/31/19 at 0730, For 2 doses, Each packet contains 250 mg elemental phosphorus. Given 05/31/2019 11:02 AM CDT 2 packets Given 05/31/2019 8:31 AM CDT 2 packets senna-docusate (PERICOLACE) 8.6-50 mg per tablet 1 tablet 1 tablet, oral, 2 times daily PRN, constipation, Starting on Thu05/29/19 at 2129, Indications: constipationIndications:constipation sodium chloride 0.9% flush 0.5-20 mL 0.5-20 mL, intra-catheter, Every 8 hours scheduled, First dose on Thu05/29/19 at 2215, Flush volume based on line type and size. Given 06/04/2019 8:06 PM CDT 10 mL Given 06/04/2019 1:31 PM CDT 10 mL Given 06/04/2019 5:53 AM CDT 10 mL sodium chloride 0.9% flush 0.5-20 mL 0.5-20 mL, intra-catheter, As needed, line care, Starting on Thu05/29/19 at 2127, Flush volume based on line type and size. Flush before and after each use. Given 06/04/2019 8:38 AM CDT 10 mL warfarin (COUMADIN) tablet 2 mg 2 mg, oral, Daily (for warfarin), First dose (after last modification) on Thu06/01/19 at 1800, Target INR: 2 - 3, Indications: Venous ThrombosisIndications:Venous Thrombosis Given 06/04/2019 5:24 PM CDT 2 m g Given 06/03/2019 5:11 PM CDT 2 mg Given 06/02/2019 5:24 PM CDT 2 mg warfarin (COUMADIN) tablet 5 mg 5 mg, oral, Daily (for warfarin), First dose on Thu05/31/19 at 1945, Target INR: 2 - 3, Indications: Venous ThrombosisIndications:Venous Thrombosis Given 05/31/2019 8:56 PM CDT 5 mg zolpidem (AMBIEN) tablet 5 mg 5 mg, oral, Nightly PRN, sleep, Starting on Thu06/03/19 at 2020, Indications: Sleep-Onset InsomniaIndications:Sleep-Onset Insomnia Given 06/04/2019 9:29 PM CDT 5 m g Given 06/03/2019 8:39 PM CDT 5 mg documented in this encounter Discontinued Medications Medication Sig Discontinue Reason Start Date End Da te losartan (COZAAR) 100 mg tablet TAKE ONE TABLET BY MOUTH ONCE DAILY Reorder 01/03/2019 06/05/2019 warfarin (COUMADIN) 2 mg tablet TAKE 1-2 TABLETS BY MOUTH EVERY DAY DIRECTED Stop Taking at Discharge 05/28/2018 06/05/2019 amLODIPine (NORVASC) 5 mg tablet TAKE ONE TABLET BY MOUTH ONCE DAILY Stop Taking at Discharge 11/16/2018 06/05/2019 furosemide (LASIX) 20 mg tablet Take 1 tablet (20 mg total) by mouth daily Stop Taking at Discharge 12/27/2018 06/05/2019 hydroCHLOROthiazide (HYDRODIURIL) 25 mg tablet Take 1 tablet (25 mg total) by mouth daily Stop Taking at Discharge 05/23/2019 06/05/2019 documented as of this encounter Historical Medications * This list may reflect changes made after this encounter. Ozempic 0.25 mg or 0.5 mg(2 mg/1.5 mL) pen injector Inject 0.25 mg under the skin once a week 05/20/2019 07/21/2019 added in this encounter Active and Recently Administered Medications Times are shown in CDT. Scheduled Medication Order 06/03/2019 06/04/2019 06/05/2019 ALPRAZolam (XANAX) tablet 0.25 mg (COMPLETED) 0.25 mg, oral, Once, On 06/05/19 at 1130, For 1 dose 1140 (Given - Provider: Miranda Cole RN) carvediloL (COREG) tablet 25 mg 25 mg, oral, 2 times daily, First dose on Thu06/03/19 at 2100 2038 (Given - Provider: Jermaine Cross RN) 0805 (Given - Provider: Miranda Cole RN)2004 (Given - Provider: Kristofer Quiñonez RN) 0911 (Given - Provider: Miranda Cole RN) cholecalciferol (VITAMIN D-3) capsule 2,000 Units 2,000 Units, oral, Daily, First dose on 05/30/19 at 0900 0808 (Given - Provider: Nancy Christina RN) 0804 (Given - Provider: Miranda Cole RN) 0911 (Given - Provider: Miranda Cole RN) DULoxetine DR (CYMBALTA) extended release capsule 60 mg 60 mg, oral, Daily, First dose on 05/30/19 at 0900, Capsule may be opened and contents mixed with applesauce or apple juice ONLY. Do not crush, chew, cut, dissolve, open or otherwise manipulate tablet/capsule. 0808 (Given - Provider: Nancy Christina RN) 0805 (Given - Provider: Miranda Cole RN) 0911 (Given - Provider: Miranda Cole RN) furosemide (LASIX) tablet 20 mg 20 mg, oral, 2 times daily (for diuretics), First dose (after last modification) on Yuliana 06/02/19 at 1600 0808 (Given - Provider: Nancy Christina RN)1606 (Given - Provider: Nancy Christina RN) 0805 (Given - Provider: Miranda Cole RN)1508 (Given - Provider: Miranda Cole, RN) 0911 (Given - Provider: Miranda Cole, ARMANI)1600 (Due) insulin glargine (LANTUS) injection 10 Units 10 Units, subcutaneous, Every morning, First dose on Thu05/31/19 at 0900, Do not mix with other insulins 0807 (Given - Provider: Nancy Christina RN) 0804 (Given - Provider: Miranda Cole RN) 1049 (Given - Provider: Miranda Cole RN - Comment: patient request) insulin lispro (HumaLOG) injection 1-3 Units 1-3 Units, subcutaneous, Nightly, First dose on Thu05/31/19 at 2100, Blood Sugar Mid Dose PM - PO patients 175 or less No insulin 176 - 200 1 unit 201 - 250 2 units 251 - 299 3 units Greater than 299 Call MD for hyperglycemia management instructions Do NOT hold for NPO status., Indications: Diabetes Mellitus 2038 (Given - Provider: Jermaine Cross RN) 2004 (Given - Provider: Kristfoer Quiñonez RN) insulin lispro (HumaLOG) injection 1-5 Units 1-5 Units, subcutaneous, 3 times daily with meals, First dose on Thu05/31/19 at 1200, Blood Sugar Mid Dose meal time - PO patients 139 or less No insulin 140 - 175 1 unit 176 - 200 2 unit 201 - 250 3 units 251 - 299 5 units Greater than 299 Call MD for hyperglycemia management instructions Do NOT hold for NPO status., Indications: Diabetes Mellitus 0808 (Given - Provider: Nancy Christina RN)1209 (Given - Provider: Nancy Christina RN)1710 (Given - Provider: Nancy Christina, ARMANI) 0804 (Given - Provider: Miranda Cole, ARMANI)1143 (Given - Provider: Miranda Cole RN)1723 (Given - Provider: Miranda Cole, ARMANI) 0912 (Given - Provider: Miranda Cole, RN)1455 (Not Given - Provider: Miranda Cole RN - Reason: Patient/family refused) levothyroxine (SYNTHROID) tablet 25 mcg 25 mcg, oral, Daily, First dose on Thu05/30/19 at 0900, Administer on an empty stomach, preferably 30 minutes before breakfast. Take 4 hours apart from antacids, iron and calcium products. 0809 (Given - Provider: Nancy Christina RN) 08 (Given - Provider: Miranda Cole RN) 09 (Given - Provider: Miranda Cole RN) lovastatin (MEVACOR) tablet 10 mg 10 mg, oral, Nightly, First dose on Thu05/31/19 at 2100, Take with food 2038 (Given - Provider: Jermaine Cross RN) 2004 (Given - Provider: Kristofer Quiñonez RN) metoprolol (LOPRESSOR) tablet 50 mg (CANCELED) 50 mg, oral, Every 6 hours scheduled, First dose (after last modification) on Thu06/01/19 at 1000 0446 (Given - Provider: Jermaine Cross RN)0934 (Given - Provider: Nancy Christina RN) multivit rgmwliup-jffb-QZ-calcium (THERA-M) tablet 1 tablet 1 tablet, oral, Daily, First dose on Thu05/30/19 at 0900 0808 (Given - Provider: Nancy Christina RN) 08 (Given - Provider: Miranda Cole RN) 09 (Given - Provider: Miranda Cole RN) pantoprazole DR (PROTONIX) extended release tablet 40 mg 40 mg, oral, Daily, First dose on Thu05/31/19 at 0900, Do not crush, chew, cut, dissolve, open or otherwise manipulate tablet/capsule., Indications: Treatment of Non-Bleeding Gastric Disorder 08 (Given - Provider: Nancy Christina RN) 08 (Given - Provider: Miranda Cole RN) 09 (Given - Provider: Miranda Cole RN) sodium chloride 0.9% flush 0.5-20 mL 0.5-20 mL, intra-catheter, Every 8 hours scheduled, First dose on Thu05/29/19 at 2215, Flush volume based on line type and size. 0447 (Given - Provider: Jermaine Cross RN)08 (Given - Provider: Nancy Christina RN)2049 (Given - Provider: Jermaine Cross RN) 0553 (Given - Provider: Jermaine Cross, RN)1331 (Given - Provider: Miranda Cole, ARMANI)2005 (Given - Provider: Kristofer Quiñonez, ARMANI) 0424 (Not Given - Provider: Kristofer Quiñonez RN - Reason: Other)1437 (Not Given - Provider: Miranda Cole, ARMANI - Reason: Other - Comment: discharging) warfarin (COUMADIN) tablet 2 mg 2 mg, oral, Daily (for warfarin), First dose (after last modification) on Thu06/01/19 at 1800, Target INR: 2 - 3, Indications: Venous Thrombosis 1711 (Given - Provider: Nancy Christina RN) 1724 (Given - Provider: Miranda Cole RN) Continuous Medication Order 06/03/2019 06/04/2019 06/05/2019 heparin in 0.45% sodium chloride 25,000 units/250 mL (100 units/mL) infusion (premix) (CANCELED) 1-33 Units/kg/hr ? 90.7 kg (0.907-29.931 mL/hr, rounded to 0.91-29.93 mL/hr), intravenous, Titrated, Starting on Thu05/29/19 at 2215, Initial Rate 14 units/kg/hour Adjust infusion based upon nomogram: PTT less [...] decrease infusion rate 1 unit/kg/hour PTT 105 -114.9 seconds: Hold infusion for 30 minutes, then [...] every AM until heparin is discontinued., Indications: atrial fibrillation 0850 (New Bag - Provider: Nancy Christina, RN)2218 (Rate/Dose Verify - Provider: Jermaine Cross, RN) 0523 (New Bag - Provider: Jermaine Cross, ARMANI)0710 (Rate/Dose Verify - Provider: Miranda Cole, ARMANI) PRN Medication Order 06/03/2019 06/04/2019 06/05/2019 acetaminophen (TYLENOL) tablet 1,000 mg 1,000 mg, oral, Every 6 hours PRN, 1st line for pain, Starting on 05/29/19 at 2237 1306 (Given - Provider: Nancy Christina, ARMANI) 0739 (Given - Provider: Miranda Cole RN)1508 (Given - Provider: Miranda Cole RN) 0406 (Given - Provider: Kristofer Quiñonez, ARMANI)1453 (Given - Provider: Miranda Cole, ARMANI) calcium carbonate (TUMS) chewable tablet 1,000 mg 1,000 mg (400 mg of elemental calcium), oral, 3 times daily PRN, indigestion, heartburn, Starting on 05/30/19 at 0222 ondansetron (ZOFRAN) injection 4 mg 4 mg, intravenous, Administer over 2 Minutes, Every 6 hours PRN, nausea, vomiting, Starting on 05/29/19 at 2128, Indications: nausea and vomiting oxyCODONE (ROXICODONE) tablet 5 mg 5 mg, oral, Every 4 hours PRN, 2nd line for pain, Starting on 05/29/19 at 2237, Indications: Pain 1606 (Given - Provider: Nancy Christina, ARMANI) 2034 (Given - Provider: Kristofer Quiñonez, ARMANI) senna-docusate (PERICOLACE) 8.6-50 mg per tablet 1 tablet 1 tablet, oral, 2 times daily PRN, constipation, Starting on 05/29/19 at 2129, Indications: constipation sodium chloride 0.9% flush 0.5-20 mL 0.5-20 mL, intra-catheter, As needed, line care, Starting on 05/29/19 at 2126, Flush volume based on line type and size. Flush before and after each use. 0838 (Given - Provider: Miranda Cole, RN) zolpidem (AMBIEN) tablet 5 mg 5 mg, oral, Nightly PRN, sleep, Starting on Thu06/03/19 at 2019, Indications: Sleep-Onset Insomnia 2038 (Given - Provider: Jermaine Cross, RN) 2128 (Given - Provider: Kristofer Quiñonez, ARMANI) documented in this encounter Orders Medications Ordered That Jon ht Not Have Been Administered Count Last Ordered Date First Ordered Date dextrose (D10W) 10% bolus 250 mL 1 05/29/19 dextrose (GLUTOSE) 40 % gel 15 g 1 05/29/19 glucagon injection 1 mg 1 05/29/2019 heparin 1,000 unit/mL inject ion 2,000 Units 1 05/29/2019 heparin 1,000 unit/mL inject ion 3,000 Units 1 05/29/2019 heparin 1,000 unit/mL inject ion 5,400 Units 1 05/29/2019 lovastatin (MEVACOR) tablet 10 mg 1 020 ondansetron (ZOFRAN) injection 4 mg 1 05/28 senna-docusate (PERICOLACE) 8.6-50 mg per tablet 1 tablet 1 05/29/2019 warfarin (COUMADIN) tablet 2 mg 1 0 Lab Orders Without Results Count Last Ordered D ate First Ordered Date POCT GLUCOSE DEVICE 14 06/04/2019 05/29/19 20 Diet Count Last Ordered Date First Orde red Date ADULT DISCHARGE DIET 1 06/05/2019 Nursing Count Last Ordered Date First Orde red Date DISCHARGE ACTIVITY 1 06/05/2019 DISCHARGE CALL PROVIDER 6 06/05/2019 DISCHARGE DRESSING 1 06/05/2019 DISCHARGE INSTRUCTIONS 1 06/05/2019 LUCIO CATHETER - DISCONTINUE 1 05/31/2019 INSERT LUCIO CATHETER 1 05/29/2019 WEIGH PATIENT 1 05/29/2019 Consult Count Last Ordered Date First Orde red Date IP CONSULT TO SOCIAL WORK 1 05/30/2019 Transfer Count Last Ordered Date First Orde red Date TRANSFER PATIENT 1 05/31/2019 CORE MEASURES Count Last Ordered Date First Ord ered Date REASON FOR NO VTE PROPHYLAXIS AT ADMISSION 1 05/29/2019 documented in this encounter Care Teams Osteopathy Doctor Relationship Specialty Start Date End Date Wilber Cleaning Jr., MD [address] [place] [address] PCP - General 07/03/16 07/15/20 documented as of this encounter
--- OUTSIDE RECORDS SUMMARY | 2024-03-13 01:15 | XMS_ITS | Encounter Summary ---
Author Organization [facility] Address [address] [place] [address] Phone Care Team Providers Care Gravity Prospecting Supervisor Name Role Phone Hermila Calhoun MD, Wilber A. Primary Care Provider Encounter Details Date Type Department Care Team (Late st Contact Info) Description 06/08/2019 Telephone [facility] Cardiology [address] [facility] Advanced Medicine [address]th [place] [address] [place] [address] Cathleen Walker MD [address] [facility] [address] [place], [place] [id number] Social History Tobacco Use Types Packs/Day Years Used Date Smoking Tobacco: Never Smokeless Tobacco: Never Alcohol Use Standard Drinks/Week Comments Yes 0 (1 standard drink = 0.6 oz pur e alcohol) 1/mo Comments No Sex and Gender Information Value Date Recorded Sex Assigned at Not on file 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 No / Unsure 06/08/2019 4:00 PM CDT documented as of this encounter Miscellaneous Notes * Telephone Encounter - Paulina Bright RN - 06/15/2019 11:48 AM CDT Pt d/c and back to rehab Dr. Walker spoke w/ team to address pt concerns * Telephone Encounter - Paulina Bright RN - 06/13/2019 11:09 AM CDT Inpatient at [facility], recommendations? * Telephone Encounter - Brenda Gu - 06/13/2019 11:01 AM CDT Aaron Pt is calling back about previous notes to give an update on the patient. States she is still admitted, but they are possibly going to discharge her but she is still having trouble breathing. Asking for a CB to discuss * Telephone Encounter - Paulina Bright RN - 06/13/2019 11:01 AM CDT Remains inpatient * Telephone Encounter - Paulina Bright RN - 06/09/2019 12:13 PM CDT Inpatient at [facility] Check on status * Telephone Encounter - Paulina Bright RN - 06/08/2019 2:27 PM CDT Spoke w/ pt , he is aware for pt to go to [facility] * Telephone Encounter - Paulina Bright RN - 06/08/2019 2:25 PM CDT Spoke w/ Latoya, She is the nurse caring for pt She wanted to confirm [facility], as pt asked about [facility] Told her [facility] ED She understands and will proceed to transfer pt * Telephone Encounter - Nita Mosley BS - 06/08/2019 2:24 PM CDT PT'S WANTS TO KNOW WHICH ER THE PT IS GOING TO. PLEASE CALL THE . 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 Asking which ER the patient should go to * Telephone Encounter - Cathleen Walker MD - 06/08/2019 2:03 PM CDT Spoke with provider caring for patient. Provider reports patient is more dyspneic and has been hypertensive, BP better controlled today. ED evaluation was recommended to patient yesterday, but she declined. Provider in agreement to send the patient to [facility] ED. I will call [facility] ED * Telephone Encounter - Paulina Bright RN - 06/08/2019 2:[address] Walker is calling the rehab to share her recommendations * Telephone Encounter - Paulina Bright RN - 06/08/2019 1:13 PM CDT Need to call rehab [phone] * Telephone Encounter - Cathleen Walker MD - 06/08/2019 12:57 PM CDT I would like them to send her to the ED for evaluation. Please send to [facility] ED if possible. I cannotmake recommendations based on the information provided, but I am concerned. She was recently discharged with an acute PE and new LV systolic dysfunction, EF 38%. INR was 2.0 on discharge, unclear if she is still therapeutic. * Telephone Encounter - Paulina Bright RN - 06/08/2019 10:22 AM CDT Spoke w/ pt She has d/w the staff at [facility], the acute rehab center, but still feeling the afib and SOB See note from yesterday, they are giving meds as listed in the chart Any recommendations? * Telephone Encounter - Paulina Bright RN - 06/08/2019 10:16 AM CDT Pt is inpatient at acute rehab in [facility] * Telephone Encounter - Yasmin Soto - 06/08/2019 10:08 AM CDT Aaron Pt states that she has been in afib and has been having problems with her breathing. She states that she is having problems with her breathing now. Please call to discuss documented in this encounter Plan of Treatment Not on file documented as of this encounter Visit Diagnoses Not on filedocumented in this encounter Additional Health Concerns Infection Onset Date Last Indicated Resolved Time COVID19 Comment:IP Review - pt afebrile, without URI signs/symptoms. Aislinn Goldsmith, ETCHER [employer]OTOENGRAVING 06/09/2019 06/09/2019 06/09/2019 4:20 PM C DT documented as of this encounter Care Teams Gravity Prospecting Supervisor Relationship Specialty Start Date End Date Wilber Cleaning Jr., MD [address] [place] [address] PCP - General 07/03/16 07/15/20 documented as of this encounter
--- OUTSIDE RECORDS SUMMARY | 2024-03-13 01:15 | XMS_ITS | Encounter Summary ---
Author Organization [facility] Facility Care Team Providers Care Power System Engineer Name Role Phone Hermila Calhoun MD, Oscar A. Primary Care Provider Encounter Details Date Type Department Care Team (Latest Contact Info) Description 05/29/2019 Travel Social History Tobacco Use Types Packs/Day Years Used Date Smoking Tobacco: Never Smokeless Tobacco: Never Alcohol Use Standard Drinks/Week Comments Yes 0 (1 standard drink = 0.6 oz pur e alcohol) 1/mo Comments No Sex and Gender Information Value Date Recorded Sex Assigned at Not on file Legal Sex Female 4:20 AM POCKET SETTER LOCKSTITCH Gender Identity Not on file Sexual Orientation [...] on filedocumented in this encounter Care Teams Power System Engineer Relationship Specialty Start Date End Date Wilber Cleaning Jr., MD [address] [place] [address] PCP - General 07/03/16 07/15/20 documented as of this encounter
--- OUTSIDE RECORDS SUMMARY | 2024-03-13 01:15 | XMS_ITS | Encounter Summary ---
Author Organization [facility] Address [address] [place] [address] Phone Care Team Providers Care Welder Assistant Name Role Phone Hermila Calhoun MD, Wilber Martinez Primary Care Provider Encounter Details Date Type Department Care Team (Late st Contact Info) Description 05/30/2019 6:40 AM CDT Ancillary Procedure [facility] Vascular Lab IP [address] [facility] [address] [place] [address] Social History Tobacco Use Types Packs/Day Years Used Date Smoking Tobacco: Never Smokeless Tobacco: Never Alcohol Use Standard Drinks/Week Comments Yes 0 (1 standard drink = 0.6 oz pur e alcohol) 1/mo Comments No Sex and Gender Information Value Date Recorded Sex Assigned at Not on file Legal Sex Female 4:20 AM BUSINESS QUALITY ASSURANCE ANALYST Gender Identity Not on file Sexual [...] Name Priority Date/Time Associated Diagnosis Comments US VEIN DUPLEX LOWER EXTREMITY BILATERAL COMPLETE IP Routine 05/30/2019 10:44 AM CDT documented in this encounter Results * US Vein Duplex Lower Extremity Bilateral Complete (05/30/2019 10:44 AM CDT) Anatomical Region Laterality Modality Vascular Bilateral Ultrasound 05/30/2019 9:31 AM CDT Narrative 06/02/2019 3:21 PM CDT [facility] - Department of Vascular Surgery, Vascular Laboratory [address] [place] [address] Lower Extremity Venous Ultrasound Report Patient Name: EVAN HODGSON A : 1940 (79y 3m) Study Date: 05/30/2019 9:31:52 AM Gender: F Tech: Location: [id number] Ref.Provider: KEANU ESTRADA Quality: Adequate Order Provider: KEANU ESTRADA Procedures: Vascular Report: Venous Duplex imaging was performed bilaterally in the lower extremities. The common femoral, femoral, popliteal, posterior tibial, peroneal veins were evaluated for patency, spontaneity and phasicity with Doppler, compression and augmentation maneuvers. Great saphenous vein proximal at the junction was evaluated with compression maneuvers. Indications: Other pulmonary embolism without acute cor pulmonale. Findings: Performing Scrubbing Machine Operator: Ingrid Herman RVT. Right: Duplex scan reveals [...] performed. Electronically Signed By: Emile Zavaleta MD [facility] [phone] 2019-06-02 15:21:38 CDT CC: CC: Procedure Note Emile Zavaleta MD - 06/02/2019 [facility] - Department of Vascular Surgery,Vascular Laboratory [address] [place] [address] Lower Extremity Venous Ultrasound Report Patient Name: EVAN HODGSON A : 1940 (79y 3m) Study Date: 05/30/2019 9:31:52 AM Gender: F Tech: Location: [id number] Ref.Provider: KEANU ESTRADA Quality: Adequate Order Provider: KEANU ESTRADA Procedures: Vascular Report: Venous Duplex imaging was performed bilaterally in the lower extremities.The common femoral, femoral, popliteal, posterior tibial, peroneal veins wereevaluated for patency, spontaneity and phasicity with Doppler, compression and augmentationmaneuvers. Great saphenous vein proximal at the junction was evaluated with compressionmaneuvers. Indications: Other pulmonary embolism without acute cor pulmonale. Findings: Performing Scrubbing Machine Operator: Ingrid Herman RVT. Right: Duplex scan reveals [...] performed. Electronically Signed By: Emile Zavaleta MD [facility] [phone] 2019-06-02 15:21:38 CDT CC: CC: us Keanu Estrada MD IMG US PROCEDURES Final Res ult documented in this encounter Visit Diagnoses Not on filedocumented in this encounter Care Teams Welder Assistant Relationship Specialty Start Date End Date Wilber Cleaning Jr., MD [address] [place] [address] PCP - General 07/03/16 07/15/20 documented as of this encounter
--- OUTSIDE RECORDS SUMMARY | 2024-03-13 01:15 | XMS_ITS | Encounter Summary ---
Author Organization [facility] Care Team Providers Care Baseball Glove Shaper Name Role Phone Hermila Calhoun MD, Oscar A. Primary Care Provider Encounter Details Date Type Department Care Team (Latest Contact Info) Description 06/08/2019 Travel Social History Tobacco Use Types Packs/Day Years Used Date Smoking Tobacco: Never Smokeless Tobacco: Never Alcohol Use Standard Drinks/Week Comments Yes 0 (1 standard drink = 0.6 oz pur e alcohol) 1/mo Comments No Sex and Gender Information Value Date Recorded Sex Assigned at Not on file Legal Sex Female 4:20 AM INFORMATION TECH Gender Identity Not on file Sexual [...] on filedocumented in this encounter Care Teams Baseball Glove Shaper Relationship Specialty Start Date End Date Wilber Cleaning Jr., MD [address] [place] [address] PCP - General 07/03/16 07/15/20 documented as of this encounter
--- OUTSIDE RECORDS SUMMARY | 2024-03-13 01:16 | XMS_ITS | Encounter Summary ---
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 Anesthesia Intra-op Given 05/25/2019 12:47 PM CDT 20 mg Given 05/25/2019 11:52 AM CDT 40 mg sodium chloride 0.9% infusion Continuous PRN, Starting on Thu05/25/19 at 1138, Anesthesia Intra-op New Bag 05/25/2019 11:38 AM CDT succinylcholine (ANECTINE) injection intravenous, As needed, Starting on Thu05/25/19 at 1134, Anesthesia Intra-op Given 05/25/2019 11:34 AM CDT 100 mg tranexamic acid (CYKLOKAPRON) 1,000 mg/10 mL (100 mg/mL) solution intravenous, As needed, Starting on Thu05/25/19 at 1145, Anesthesia Intra-op Given 05/25/2019 1:40 PM CDT 1,000 m g Given 05/25/2019 11:45 AM CDT 1,000 mg Transfuse RBC Timed New Bag 05/25/2019 1:36 PM CDT documented in this encounter Care Teams Investigative Agent Relationship Specialty Start Date End Date Wilber Cleaning Jr., MD [address] [place] [address] PCP - General 07/03/16 07/15/20 documented as of this encounter
--- OUTSIDE RECORDS SUMMARY | 2024-03-13 01:16 | XMS_ITS | Encounter Summary ---
Author Organization [facility] Healthcare Address [address] [place] [address] Care Team Providers Care Ticket Sorter Name Role Phone Hermila Calhoun MD, Wilber Martinez Primary Care Provider Encounter Details Date Type Department Care Team (Late st Contact Info) Description 05/22/2019 7:29 AM CDT Anesthesia Event [facility] Operating Room [address] [place] [address] Daryn Jaramillo MD [address] [facility] [id number] [place] [address] Anesthesia Record Procedure Summary Procedure Name Responsible Anesthesiologist Anesthesia Start Time Anesthesia Stop Time INCISION AND DRAINAGE - FEMUR (Left: Thigh) Daryn Jaramillo MD 05/22/19 0729 05/22/19 0911 Events Date Time Event Comment 05/22/2019 0729 An Start 0734 In Room 0734 An Start Data 0743 An Induction The patient was reevaluated immediately before moderate or deep sedation use and before anesthesia induction. 0745 An Intubation 0749 Anesthesia Ready 0750 0813 Proc Start 0813 Incision Start 0857 An Extubation 0900 Proc Fin 0901 an stop data 0902 Out of Room 0911 Handoff to RN I completed my handoff [...] disposition at the time of handoff: PACU 0911 An Stop Meds Name Total lidocaine 1 % PF 60 mg fentaNYL 150 mcg propofol 140 mg rocuronium 10 mg succinylcholine 60 mg phenylephrine 100 mcg/mL 1,200 mcg HYDROmorphone 2 mg/mL 0.4 mg ondansetron PF (ZOFRAN) 2 mg/mL injectio n 4 mg ceFAZolin (ANCEF) 2,000 mg/20 mL in ster ile water (premix) 2,000 mg 2,000 mg norepinephrine 16 mcg phenylephrine infusion (100 mcg/mL) 4.11 mg LR 100 mL LR 500 mL * Agents Name O2% N2O O2 N2O Air Sevoflurane Inspired Sevoflurane * Blood No blood administrations on file. Lines, Drains, and Airways Type Details Placement Removal Peripheral IV Placement Date: 05/21/19; Placement Time: 1915; Existing LDA Placed by: Other hospital; Catheter Size: 18 G; Orientation: Left; Location: Antecubital; Removal Date: 05/25/19; Removal Time: 1407 (Not present on arrival to PACU.) 05/21/19 191 by Marielena Hua RN 05/25/19 140 by Maria Antonia Redd RN ETT Placement Date: 05/22/19; Placement Time: 0745 (created via procedure documentation); Mask Ventilation: 0; Technique: Direct laryngoscopy; Type: ETT - single; Single Lumen Tube Size: 7 mm; Cuffed: Yes; Laryngoscope: Yaquelin; Blade Size: 3; Location: Oral; Grade View: Grade I; Insertion Attempts: 1; Placement Verification: Auscultation, Capnometry; Removal Date: 05/22/19; Removal Time: 0857 05/22/19 0745 by Daya Baldwin RN 05/22/19 0857 by Daya Baldwin RN Peripheral IV Placement Date: 05/22/19; Placement Time: 0756 (created via procedure documentation); Catheter Size: 18 G; Orientation: Left; Location: Hand; Site Prep: Chlorhexidine; Insertion Attempts: 1; Removal Date: 05/26/19; Removal Time: 807; Removal Reason: Infiltrated 05/22/19 0756 by Daya Baldwin RN 05/26/19 0808 by Moriah Hall RN RETIRED Surgical Site 05/22/19; 0840; Le ft; Leg; 08/07/23; 0700; Not present on admission 05/22/19 0840 by Aurelia Pederson RN 08/07/23 0700 by Gris Buck RN documented in this encounter Social History Tobacco Use Types Packs/Day Years Used Date Smoking Tobacco: Never Smokeless Tobacco: Never Alcohol Use Standard Drinks/Week Comments Yes 0 (1 standard drink = 0.6 oz pur e alcohol) 1/mo Comments No Sex and Gender Information Value Date Recorded Sex Assigned at Not on file 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 Gender Identity Not on file Sexual Orientation Not on file documented as of this encounter OR Notes * Anesthesia Postprocedure Evaluation - Daryn Jaramillo MD - 05/22/2019 10:09 AM CDT Patient: Prema Pearce Procedure Summary Date: 05/22/19 Room / Location: [facility] OR POD 2 ROOM 204 / [facility] OR POD 2 Anesthesia Start: 728 Anesthesia Stop: 910 Procedure: INCISION AND DRAINAGE - FEMUR (Left Thigh) Diagnosis: Other type I or II open fracture of distal end of left femur, initial encounter ([facility]) (Other type I or II open fracture of distal end of left femur, initial encounter ([facility]) [S72.492B]) Surgeon: Cuba Castro MD Responsible Provider: Daryn Jaramillo MD Anesthesia Type: general ASA Status: 3 Anesthesia Type: No value filed. Last vitals BP 96/57 Pulse 113 Temp 36.9 ??C (98.4 ??F) Resp 12 SpO2 94% Anesthesia Post Evaluation Patient location during evaluation: PACU Patient participation: complete - patient participated Level of consciousness: fully awake Pain management: adequate Airway patency: adequate Evidence of recall: no Anesthetic complications: no Cardiovascular status: acceptable Respiratory status: acceptable and nasal cannula Hydration status: acceptable Pt is: normothermic Nausea/Vomiting status: none * Anesthesia Procedure Notes - Daya Baldwin RN - 05/22/2019 7:56 AM CDTAssociated Order(s): Peripheral IV Catheter Peripheral IV Catheter Patient location: OR Staff: Placed by: TRANSMISSION CALIBRATION ENGINEER: Mehul Dias CRNA Preprocedure prep: Prep solution: chlorhexadine PPE: gloves PIV line: Laterality: left Site: hand Catheter size: 18 g Technique: direct visualization and palpatation Procedure details: good blood return and occlusive dressing applied Number of attempts: 1 * Anesthesia Procedure Notes - Daya Baldwin RN - 05/22/2019 7:54 AM CDTAssociated Order(s): Airway Airway Patient location: OR Urgency: elective Date/time: 05/22/2019 7:45 AM Indications for airway management: anesthesia Difficult airway: no Staff: Supervising provider: Daryn Jaramillo MD Placed by: TRANSMISSION CALIBRATION ENGINEER: Mehul Dias CRNA Other staff: Daya Baldwin RN Emergent airway documentation: Risks and benefits discussed: [...] used for successful ETT placement: direct laryngoscopy Insertion site: oral Blade type: Yaquelin Blade size: 3 Cormack-Lehane (direct): grade I - full view of glottis Cuff volume: 7 mL Cuff inflated with: air ETT to lips: 22 cm Placement verified by: auscultation and CO2 detection Airway secured with: silk tape Number of attempts: 1 * Anesthesia Preprocedure Evaluation - Daryn Jaramillo MD - 05/22/2019 7:51 AM CDT Images from the original note were not included. Anesthesia Evaluation Prema Pearce is a 79 y.o. female Procedure(s): INCISION AND DRAINAGE - FEMUR Pre-Op Diagnosis Codes: * Other type I or II open fracture of distal end of left femur, initial encounter ([facility]) [S72.492B] Patient Active Problem List Diagnosis ??? Carotid bruit ??? Obesity with body mass index 30 or greater ??? Snoring ??? Atrial fibrillation ([facility]) [I48.91] ??? Open fracture of left distal femur ([facility]) Past Medical History: Diagnosis Date ??? Atrial fibrillation ([facility]) ??? Dyslipidemia ??? Hypertension ??? Hypothyroidism ??? Mitral regurgitation Past Surgical History: Procedure Laterality Date ??? BREAST LUMPECTOMY ??? CHOLECYSTECTOMY ??? HAND SURGERY Left plate & screws ??? HYSTERECTOMY OB History No obstetric history on file. [...] mouth daily hydroCHLOROthiazide (HYDRODIURIL) 25 mg tablet 11/16/18 -- Catarina Huerta MD TAKE ONE TABLET BY MOUTH ONCE DAILY levothyroxine (SYNTHROID, LEVOTHROID) 25 mcg tablet 03/24/18 [...] 1,000 mg tablet 05/20/2019 -- -- Historical Provider, multivit,iron,minerals/lutein (CENTRUM SILVER ULTRA WOMEN'S ORAL) -- [...] (AMBIEN) 5 mg tablet 09/16/17 -- Historical Provider, Current Facility-Administered Medications: ??? [MAY Hold] acetaminophen (TYLENOL) tablet 1,000 mg, 1,000 mg, oral, Q6H MISHA, 1,000 mg at 05/22/19 0023 ??? [MAY Hold] amLODIPine (NORVASC) tablet 5 mg, 5 mg, oral, Daily ??? [MAY Hold] carvediloL (COREG) tablet 25 mg, 25 mg, oral, BID, 25 mg at 05/21/192250 ??? [MAY Hold] ceFAZolin (ANCEF) 2,000 mg/20 mL in sterile water (premix) 2,000 mg, 2,000 mg, intravenous, Q8H MISHA ??? [MAY Hold] dextrose (GLUTOSE) 40 % gel 15 g, 15 g, oral, Q15 Min PRN OR [MAY Hold] dextrose(D10W) 10% bolus 250 mL, 250 mL, intravenous, Q15 Min PRN ??? dextrose 5% and sodium chloride 0.45% with potassium chloride 20 mEq/L infusion (premix), 100 mL/hr, intravenous, Continuous, Last Rate: 100 mL/hr at 05/22/19 0026, 100 mL/hr at 05/22/19 0026 ??? [MAY Hold] DULoxetine DR (CYMBALTA) extended release capsule 60 mg, 60 mg, oral, Daily ??? [MAY Hold] enoxaparin (LOVENOX) syringe 30 mg, 30 mg, subcutaneous, Q12H MISHA ??? [MAY Hold] glucagon injection 1 mg, 1 mg, intramuscular, Q30 Min PRN ??? [MAY Hold] insulin lispro (HumaLOG) injection 1-2 Units, 1-2 Units, subcutaneous, Q4H MISHA ??? [MAY Hold] levothyroxine (SYNTHROID) tablet 25 mcg, 25 mcg, oral, Daily ??? [MAY Hold] losartan (COZAAR) tablet 100 mg, 100 mg, oral, Daily ??? [MAY Hold] lovastatin (MEVACOR) tablet 10 mg, 10 mg, oral, Nightly ??? [MAY Hold] oxyCODONE (ROXICODONE) tablet 5 mg, 5 mg, oral, Q4H PRN, 5 mg at 05/22/19 0029 ??? [MAY Hold] sodium chloride 0.9% flush 0.5-20 mL, 0.5-20 mL, intra-catheter, Q8H MISHA, 10 mL at 05/22/19 0036 ??? [MAY Hold] sodium chloride 0.9% flush 0.5-20 mL, 0.5-20 mL, intra-catheter, PRN Social History Tobacco Use Smoking Status Never Smoker Smokeless Tobacco Never Used Substance and Sexual Activity Alcohol Use Yes Comment: 1 Substance and Sexual Activity Drug Use Never [...] diabetes mellitus - (Added by TW Conv) Vitals: 05/22/19 0650 05/22/19 0700 05/22/19 0710 BP: 105/59 103/67 Pulse: 102 98 90 Resp: 17 10 16 Temp: SpO2: 98% 100% 97% PT: 05/22/2019: 15.1 sec* INR: 05/22/2019: 1.4* APTT: 05/21/2019: 32 sec Hgb A1C: No results found for requested labs within last 720 hours. CBC RBC: 05/21/2019: 3.82 M/cumm* RDW: No results found for requested labs within last 720 hours. MCHC: 05/21/2019: 32.7 g/dL MCH: 05/21/2019: 31.4 pg MCV: 05/21/2019: 96.1 fL Hct: 05/21/2019: 36.7 % Hgb: 05/21/2019: 12.0 g/dL WBC: 05/21/2019: 9.9 K/cumm MPV: 05/21/2019: 10.3 fL Platelets: 05/21/2019: 259 K/cumm RDW CV: 05/21/2019: 13.7 % RDW Sd: 05/21/2019: 48.4 fL* BMP Glucose: 05/22/2019: 178 mg/dL Calcium: 05/21/2019: 9.2 mg/dL Sodium: 05/21/2019: 137 mmol/L Potassium: 05/21/2019: 3.8 mmol/L CO2: 05/21/2019: 25 mmol/L Chloride: 05/21/2019: 103 mmol/L BUN: 05/21/2019: 17 mg/dL Creatinine: 05/21/2019: 0.53 mg/dL* STOP-Bang Total Score: 4 DOS Physical Exam Medical history, medications, and allergies reviewed. Attestation: This PAT evaluation 05/22/2019. Airway Exam: Mallampati: II Cervical ROM: FROM TM distance: 3 Jaw ROM: full Cardiovascular Exam: Rate: regular Rhythm: irregular Murmur: LESLEE and grade II/ Pulmonary Exam: LCTA EENT Exam: trachea midline (Bruit noted in records-I did not appreciate a bruit on auscultation this morning) Dental Exam: Appears intact (Upper palate torus) Current state: Patient's current state is cooperative. Anesthesia Plan ASA 3 My patient is approved for the Anesthesia Controlled Medication protocol when under care of a TRANSMISSION CALIBRATION ENGINEER Planned anesthesia: General Team communication plan: oral ET tube Induction: Induction: intravenous. Postoperative Plan: Patient's planned disposition post procedure is Floor. Informed Consent: Discussed plan with TRANSMISSION CALIBRATION ENGINEER. Anesthesia plan and risks discussed with patient. Consent and Attending signature: I and/or my designee have discussed the anesthesia plan, benefits, possible alternatives, parental presence at time of induction (if indicated), and clinically relevant risks that may include dental injury, unintentional awareness, and/or other complications. The patient and/or parent/legal guardian understand, and agree to proceed. All questions answered. documented in this encounter Miscellaneous Notes * Addendum Note - Daya Baldwin RN - 05/22/2019 11:38 AM CDT Addendum created 05/22/19 1138 by Daya Baldwin RN Intraprocedure Meds edited documented in this encounter Plan of Treatment Not on file documented as of this encounter Procedures Procedure Name Priority Date/Time Associated Diagnosis Comments MT AN PROCEDURE PLACEHOLDER Routine 05/22/2019 7:56 AM CDT MT AN PROCEDURE PLACEHOLDER Routine 05/22/2019 7:54 AM CDT MT AN ELECTIVE ENDOTRACHEAL AIRWAY Routine 05/22/2019 7:54 AM CDT documented in this encounter Results * MT AN PROCEDURE PLACEHOLDER (05/22/2019 7:56 AM CDT) Narrative Daya Baldwin RN - 05/22/2019 7:56 AM CDT Daya Baldwin RN ? 05/22/2019 ??7:56 AM Peripheral IV Catheter Patient location: OR Staff: Placed by: TRANSMISSION CALIBRATION ENGINEER: Mehul Dias CRNA Preprocedure prep: Prep solution: chlorhexadine PPE: gloves PIV line: Laterality: left Site: hand Catheter size: 18 g Technique: direct visualization and palpatation Procedure details: good blood return and occlusive dressing applied Number of attempts: 1 Daryn Jaramillo MD ANESTHESIA ORDERABLES Final Result * MT AN ELECTIVE ENDOTRACHEAL AIRWAY, MT AN PROCEDURE PLACEHOLDER (05/22/2019 7:54 AM CDT) Daya Veras RN - 05/22/2019 7:54 AM CDT Daya Baldwin RN ? 05/22/2019 ??7:55 AM Airway Patient location: OR Urgency: elective Date/time: 05/22/2019 7:45 AM Indications for airway management: anesthesia Difficult airway: no Staff: Supervising provider: Daryn Jaramillo MD Placed by: TRANSMISSION CALIBRATION ENGINEER: Mehul Dias CRNA Other staff: Daya Baldwin RN Emergent airway documentation: Risks and benefits discussed: [...] used for successful ETT placement: direct laryngoscopy Insertion site: oral Blade type: Yaquelin Blade size: 3 Cormack-Lehane (direct): grade I - full view of glottis Cuff volume: 7 mL Cuff inflated with: air ETT to lips: 22 cm Placement verified by: auscultation and CO2 detection Airway secured with: silk tape Number of attempts: 1 Daryn Jaramillo MD ANESTHESIA ORDERABLES Final Result documented in this encounter Visit Diagnoses Not on filedocumented in this encounter Administered Medications Inactive Administered Medications - up to 3 most recent administrations Medication Order MAR Action Action Date Dose Rate Site ceFAZolin (ANCEF) 2,000 mg/20 mL in sterile water (premix) 2,000 mg 2,000 mg, intravenous, at 400 mL/hr, Administer over 3 Minutes, Every 8 hours scheduled, First dose on 3/8/20 at 0600, Indications: Bone/Joint InfectionIndications:Bone/J oint Infection New Bag 05/25/2019 6:12 AM CDT 2,000 mg 400 mL/hr New Bag 05/24/2019 9:22 PM CDT 2,000 mg 400 mL/hr New Bag 05/24/2019 1:37 PM CDT 2,000 mg 400 mL/hr fentaNYL (SUBLIMAZE) preservative free injection intravenous, As needed, Starting on Thu05/22/19 at 0743, Anesthesia Intra-op Given 05/22/2019 8:18 AM CDT 50 mcg Given 05/22/2019 7:43 AM CDT 100 mcg HYDROmorphone (DILAUDID) injection intravenous, Administer over 2 Minutes, As needed, Starting on Thu05/22/19 at 0858, Anesthesia Intra-op Given 05/22/2019 8:58 AM CDT 0.4 mg Lactated Ringer's (LR) infusion Continuous PRN, Starting on Thu05/22/19 at 0729, Anesthesia Intra-op New Bag 05/22/2019 7:29 AM CDT Lactated Ringer's (LR) infusion Continuous PRN, Starting on Thu05/22/19 at 0754, Anesthesia Intra-op New 05/22/2019 7:54 AM CDT lidocaine PF (XYLOCAINE) 10 mg/mL (1 %) preservative free injection As needed, Starting on Thu05/22/19 at 0743, Anesthesia Intra-op Given 05/22/2019 7:43 AM CDT 60 mg norepinephrine (LEVOPHED) injection As needed, Starting on Thu05/22/19 at 0756, Anesthesia Intra-op Given 05/22/2019 7:56 AM CDT 16 mcg ondansetron (ZOFRAN) injection intravenous, Administer over 2 Minutes, As needed, Starting on Thu05/22/19 at 0832, Anesthesia Intra-op Given 05/22/2019 8:32 AM CDT 4 mg phenylephrine (LAZARO-SYNEPHRINE) 0.5 mg/5 mL (100 mcg/mL) in sodium chloride 0.9% (premix) intravenous, As needed, Starting on Thu05/22/19 at 0744, Anesthesia Intra-op Given 05/22/2019 8:27 AM CDT 200 mcg Given 05/22/2019 8:12 AM CDT 200 mcg Given 05/22/2019 7:55 AM CDT 200 mcg phenylephrine (LAZARO-SYNEPHRINE) 5 mg/50 mL (100 mcg/mL) in sodium chloride 0.9% (premix) Continuous PRN, Starting on 05/22/19 at 0743, Anesthesia Intra-op Rate/Dose Change 05/22/2019 8:38 AM CDT 0.5 mcg/kg/min 27.2 mL/hr Rate/Dose Change 05/22/2019 8:33 AM CDT 0.7 mcg/kg/min 38. 1 mL/hr Rate/Dose Change 05/22/2019 8:13 AM CDT 1 mcg/kg/min 54.4 mL/hr propofoL (DIPRIVAN) IV intravenous, As needed, Starting on 05/22/19 at 0743, Anesthesia Intra-op Given 05/22/2019 7:43 AM CDT 140 mg rocuronium (ZEMURON) injection intravenous, As needed, Starting on Thu05/22/19 at 0743, Anesthesia Intra-op Given 05/22/2019 7:43 AM CDT 10 mg succinylcholine (ANECTINE) injection intravenous, As needed, Starting on 05/22/19 at 0743, Anesthesia Intra-op Given 05/22/2019 7:43 AM CDT 60 mg documented in this encounter Care Teams Ticket Sorter Relationship Specialty Start Date End Date Wilber Cleaning Jr., MD [address] [place] [address] PCP - General 07/03/16 07/15/20 documented as of this encounter
--- OUTSIDE RECORDS SUMMARY | 2024-03-13 01:16 | XMS_ITS | Encounter Summary ---
Author Organization [facility] Facility Care Team Providers Care Drum Stenciler Name Role Phone Hermila Calhoun MD, Oscar A. 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
--- OUTSIDE RECORDS SUMMARY | 2024-03-13 01:16 | XMS_ITS | Encounter Summary ---
Author Organization [facility] Healthcare Address [address] [place] [address] Care Team Providers Care Filler Room Attendant Name Role Phone Hermila Calhoun MD, Wilber Martinez Primary Care Provider Reason for Visit * Reason Comments Fall Encounter Details Date Type Department Care Team (Latest Contact Info) Description 05/21/2019 7:15 PM RENTAL CLERK - 05/27/2019 1:09 PM CDT Hospital Encounter [facility] [address] [place] [address] Berny Carrera MD [address] [facility] [phone] [place] [address] Steve Garcia MD [address] [facility] [place] [phone] [place] [address] Daniela Sharif MD [address] [place] [address] Kaveh Charles MD [address] [place] [address] Closed fracture of distal end of left femur, unspecified fracture morphology, initial encounter ([facility]) (Primary Dx); Other type I or II open fracture of distal end of left femur, initial encounter ([facility]) Discharge Disposition: Discharge to SNF Social History Tobacco Use Types Packs/Day Years Used Date Smoking Tobacco: Never Smokeless Tobacco: Never Alcohol Use Standard Drinks/Week Comments Yes 0 (1 standard drink = 0.6 oz pur e alcohol) 1/mo Comments No Sex and Gender Information Value Date Recorded Sex Assigned at Not on file Legal Sex Female 4:20 AM RENTAL CLERK Gender Identity Not on file Sexual Orientation Not on file documented as of this encounter Last Filed Vital Signs Vital Sign Reading Time Taken Comments Blood Pressure 100/70 05/27/2019 11:55 AM CDT Pulse 100 05/27/2019 11:47 AM CDT Temperature 36.6 ??C (97.9 ??F) 05/27/2019 8:02 AM CD T Respiratory Rate 16 05/27/2019 8:02 AM CDT Oxygen Saturation 93% 05/27/2019 11:47 AM CDT Inhaled Oxygen Concentration - - Weight 90.7 kg (200 lb) 05/21/2019 7:29 PM RENTAL CLERK Height 157.5 cm (5' 2 ) 05/21/2019 7:29 PM RENTAL CLERK Body Mass Index 36.58 05/21/2019 7:29 PM RENTAL CLERK documented in this encounter Discharge Diagnoses Diagnosis Displaced supracondylar fracture without intracondylar extension of lower end of left femur, initial encounter for open fracture type I or II ([facility]) - DISPLACED SUPRACONDYLAR FRACTURE WITHOUT INTRACONDYLAR EXTENSION OF LOWER END OF LEFT FEMUR, INITIAL Acute posthemorrhagic anemia - ACUTE POSTHEMORRHAGIC ANEMIA Hypothyroidism, unspecified - HYPOTHYROIDISM, UNSPECIFIED Type 2 diabetes mellitus without complications ([facility]) (HCC) - TYPE 2 DIABETES MELLITUS WITHOUT COMPLICATIONS Hyperlipidemia, unspecified - HYPERLIPIDEMIA, UNSPECIFIED Essential (primary) hypertension - ESSENTIAL (PRIMARY) HYPERTENSION Unspecified essential hypertension Nonrheumatic mitral (valve) insufficiency - NONRHEUMATIC MITRAL (VALVE) INSUFFICIENCY Unspecified atrial fibrillation (HCC) - UNSPECIFIED ATRIAL FIBRILLATION Fall on same level, unspecified, initial encounter - FALL ON SAME LEVEL, UNSPECIFIED, INITIAL ENCOUNTER Activity, unspecified - ACTIVITY, UNSPECIFIED Unspecified place in unspecified non-institutional (private) residence as the place of occurrence of the external cause - UNSPECIFIED PLACE IN UNSPECIFIED NON-INSTITUTIONAL (PRIVATE) RESIDENCE THE PLACE OF OCCURRENCE OF Unspecified external cause status - UNSPECIFIED EXTERNAL CAUSE STATUS Allergy status to other drugs, medicaments and biological substances status - ALLERGY STATUS TO OTHER DRUGS, MEDICAMENTS AND BIOLOGICAL SUBSTANCES STATUS long term care administrator (current) use of anticoagulants - SHAREPOINT ENGINEER (CURRENT) USE OF ANTICOAGULANTS Long-term (current) use of anticoagulants Hormone replacement therapy - HORMONE REPLACEMENT THERAPY 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 UTERUS Family history of sudden cardiac - FAMILY HISTORY OF SUDDEN CARDIAC Family history of ischemic heart disease and other diseases of the circulatory system - FAMILY HISTORY OF ISCHEMIC HEART DISEASE AND OTHER DISEASES OF THE CIRCULATORY SYSTEM Family history of diabetes mellitus - FAMILY HISTORY OF DIABETES MELLITUS documented in this encounter Discharge Summaries * Kaveh Charles MD - 05/27/2019 1:09 PM CDT Inpatient Discharge Summary Admitting Provider: Steve Garcia MD Discharge Provider: Kaveh Charles MD Primary Care Physician at Discharge: Wilber Cleaning Jr., MD [phone] Admission Date: 05/21/2019 Discharge Date: 05/27/2019 Primary Discharge Diagnosis: Open fracture of left distal femur ([facility]) DETAILS OF HOSPITAL STAY Date of Admission: 05/21/2019 Date of Discharge: 05/27/2019 Procedure Performed: Left Distal femoral replacement Chief Complaint: Left knee pain History of Present Illness: The patient is a 79 y.o. year old female cared for by Dr. Kaveh Charles. She presented to the ED on 05/21/2019 s/p fall and was found to have a L Type 3 Open Distal Femur Fx. The risks, benefits, alternatives and complications of a left distal femoral replacement was discussed with the patient at length prior to surgery. The patient elected to proceed with a surgical intervention given the significant influence on their quality of life. Informed consent was obtained prior to surgery. Physical Exam: On the day of discharge, the patient was afebrile with stable vital signs. Examination of the left lower extremity revealed the patient was neurovascularly intact. Incision was clean, dry and intact.Pain was adequately maintained on oral opiates. Hospital Course: The patient was admitted on 05/21/2019 and underwent a left distal femoral repalcement. The patient tolerated the procedure well and was taken in stable condition to the postoperative recovery room then transferred to the orthopedic floor in stable condition. The patient progressed well and was able to be weaned off IV opiates. During her stay she was found to have two asymptomatic instances of atrial fibrillation with RVR, her blood pressure was stable through these episodes. She was treated with 5mg of IV metoprolol for each with good response. We recommended close follow-up with her outpatient supervisor metal furniture assembly. The patient participated with physical and occupational therapy and was [facility]. She was maintained on Coumadin for deep venous thrombosis prophylaxis. Pain was adequately maintained on oral opiates. The patient was discharged in stable condition to rehabilitation facility on 05/27/2019. Discharge Medications: Prema Pearce Home Medication Instructions ROMMEL:[id number] Printed on:05/27/19 1400 Medication Information ALPRAZolam (XANAX) 0.25 mg tablet PRN amLODIPine (NORVASC) 5 mg tablet TAKE ONE TABLET BY MOUTH ONCE DAILY carvedilol (COREG) 25 mg tablet Take 1 tablet (25 mg total) by mouth 2 (two) times a day with meals cholecalciferol, vitamin D3, (VITAMIN D3 ORAL) Take by mouth daily DULoxetine DR (CYMBALTA) 30 mg capsule Take 60 mg by mouth daily furosemide (LASIX) 20 mg tablet Take 1 tablet (20 mg total) by mouth daily hydroCHLOROthiazide (HYDRODIURIL) 25 mg tablet Take 1 tablet (25 mg total) by mouth daily levothyroxine (SYNTHROID, LEVOTHROID) 25 mcg tablet Take 25 mcg by mouth daily losartan (COZAAR) 100 mg tablet TAKE ONE TABLET BY MOUTH ONCE DAILY lovastatin (MEVACOR) 10 mg tablet TAKE ONE TABLET BY MOUTH ONCE DAILY AT BEDTIME metFORMIN (GLUCOPHAGE) 1,000 mg tablet Take one tablet once daily at bedtime multivit,iron,minerals/lutein (CENTRUM SILVER ULTRA WOMEN'S ORAL) Take by mouth daily oxyCODONE-acetaminophen (PERCOCET) 5-325 mg per tablet Take 1-2 tablets by mouth every 4 (four) hours as needed for pain potassium chloride ER (KLOR-CON) 20 mEq CR tablet Take 1 tablet (20 mEq total) by mouth daily senna-docusate (PERICOLACE) 8.6-50 mg Take 2 tablets by mouth 2 (two) times a day warfarin (COUMADIN) 2 mg tablet TAKE 1-2 TABLETS BY MOUTH EVERY DAY DIRECTED zolpidem (AMBIEN) 5 mg tablet Take 5 mg by mouth nightly. at bedtime. Discharge Activity: 1. Weight bearing: Weight bearing as tolerated left lower extremity 2. Assistive Devices: Walker or crutches for all walking 3. DVT prophylaxis: Coumadin, home dose Discharge Diet: Resume previous diet Follow-up: Dr. Kaveh Charles on 06/16/2019 at 9:45am at [facility] 12A: [facility] ([facility]), [address] [place] [address], [address], [place] [address]. Condition on Discharge: Stable documented in this encounter Medications at Time of Discharge oxyCODONE-acetam inophen (PERCOCET) 5-325 mg per tabletIndication s:Pain Take 1-2 tablets by mouth every 4 (four) hours as needed for pain 56 tablet 05/26/2019 07/25/2019 ALPRAZolam (XANAX) 0.25 mg tablet Take 0.25 [...] mouth daily 30 tablet 11 12/27/2018 06/05/2019 hydroCHLOROthiaz nuno (HYDRODIURIL) 25 mg tablet Take 1 tablet (25 mg total) by mouth daily 90 tablet 3 05/23/2019 06/05/2019 levothyroxine (SYNTHROID) 50 mcg tablet Take 25 mcg by mouth 2 (two) times a day 1 03/24/2018 10/29/2020 losartan (COZAAR) 100 mg tablet TAKE ONE TABLET BY MOUTH ONCE DAILY 90 tablet 3 01/03/2019 06/05/2019 lovastatin (MEVACOR) 10 mg tablet TAKE ONE [...] the skin once a week 05/20/2019 07/21/2019 potassium chloride ER (KLOR-CON) 20 mEq CR tablet Take 1 tablet (20 mEq total) by mouth daily 30 tablet 11 12/27/2018 06/13/2019 senna-docusate (PERICOLACE) 8.6-50 mgIndications:co nstipation Take 2 tablets by mouth 2 (two) times a day 60 tablet 1 05/27/2019 06/09/2019 warfarin (COUMADIN) 2 mg tablet TAKE 1-2 TABLETS BY MOUTH EVERY DAY DIRECTED 180 tablet 1 05/28/2018 06/05/2019 zolpidem (AMBIEN) 5 mg tabletIndication s:Sleep-Onset Insomnia Take 5 mg by mouth nightly. at bedtime. 1 09/16/2017 06/13/2019 documented as of this encounter Ordered Prescriptions Prescription Sig Dispense Quantity Refills Last Filled Start Date End Date senna-docusate (PERICOLACE) 8.6-50 mgIndications:cons tipation Take 2 tablets by mouth 2 (two) times a day 60 tablet 1 05/27/2019 0 oxyCODONE-acetamin ophen (PERCOCET) 5-325 mg per tabletIndications: Pain Take 1-2 tablets by mouth every 4 (four) hours as needed for pain 56 tablet 05/26/2019 0 documented in this encounter Discharge Disposition Disposition Code Departure Means Destination Discharge to [facility] ([place], [place]) documented in this encounter Progress Notes * Tami Britton BISCUIT MACHINE OPERATOR - 05/27/2019 2:19 PM CDT 05/27/19 1413 Discharge Summary Chart reviewed For Medical Necessity Does patient have a planned readmission to hospital planned? No Discharge Disposition SNF, Commercial Insurance, Short term Skilled Specify Facility [facility] Contact Number [phone] Discharge Records Chart Copied;Transfer Form Completed Equipment/Provider Needs No Home Needs Identified Discharge Additional Assistance Does the patient need discharge transport arranged? Yes Has discharge transport been arranged? Yes Details of Transportation Kimberli [phone]. Trip number: [id number] What day is the transport expected? 05/27/19 What time is the transport expected? 1417 Discharge Transportation Communication Mode of transport has been discussed with the patient/family. All are agreeable to the plan and understand their responsibilities to ensure the safe transfer. No further CM/SW intervention is anticipated at this time. Post Discharge Care Provider Post Discharge Care Plan DC Summary has been faxed to next level of care provider (see Follow Up Providers) Patient and Pt's spouse, Ravi, accepted placement. Eliza, admissions at facility, accepted placement. Patient is medically stable, chart copied, insurance auth obtained from Gela [phone], Auth number [id number]. Facility willing to take patient, Transfer paperwork completed. Patient agrees with placement, DPOA agrees with placement, Designated decision- maker agrees with placement. Date and time of transportation 05/27/2019 at 1430 Report: [phone] Patient/family informed that while medical team will [...] remainder of the bill. Patient/family voiced understanding. PCS Form Completed due to Pt is a high fall risk, Pt requires 25% assist to transfer, Pt is on 2L of O2 Pt and Pt's spouse, Ravi, are both aware that the facility will not allow visitors. * Suzie Wu MD - 05/27/2019 6:21 AM CDT Ortho Recon Daily Progress Subjective Prema Pearce [id number] 79 y/o F POD 2 s/p L distal femoral replacement. S: Doing well, transferred up to 174 overnight. Pain controlled on current regimen. Notes some burning anterior but otherwise OK. Stood/transferred yesterday, will continue to work with PT. Asymptomatic during period of Afib w/ RVR. Pt has not seen outpatient supervisor metal furniture assembly for a couple months, was previously on sotalol/coreg but sotalol was discontinued about 1 month ago. Tolerating diet. O: AF, HR 90-130 overnight, saturating well, BP wnl LLE NVI Dressing c/d/i H/H:8.9/27.5 Cr: 0.62 K 4.2 INR 1.3 Plan: WBAT LLE Mobilize w/ PT and OT Pain controlled on current regimen Coumadin/ACP Additional needs: None Dispo: Rehab pending therapy and when accepted. Recent Labs Lab Units 05/27/19 0435 05/26/19 2152 HEMOGLOBIN g/dL -- -- 8.9* HEMATOCRIT % -- -- 27.5* SODIUM mmol/L -- -- 134* POTASSIUM PLASMA mmol/L -- -- 4.2 CREATININE mg/dL -- -- 0.45* GLUCOSE mg/dL -- -- 222* POC GLUCOSE MONITOR mg/dL 174 < > -- PROTIME (PT) sec -- -- 13.7* INR -- -- 1.3* < > = values in this interval not displayed. Objective Vitals: 24hr Min/Max: Temp Min: 36.8 ??C (98.2 ??F) Max: 37 ??C (98.6 ??F) Pulse Min: 70 Max: 153 BP Min: 107/77 Max: 142/89 Resp Min: 16 Max: 20 SpO2 Min: 92 % Max: 97 % Most Recent : Vitals: 05/27/19 0525 BP: 107/77 Pulse: (!) 130 Resp: Temp: SpO2: I/O last 2 completed shifts: In: 500 [I.V.:500] Out: 975 [Urine:975] I/O this shift: In: - Out: 475 [Urine:475] Surgical Site 05/22/19 Left Leg (Active) Site Assessment MICHAEL 05/25/2019 9:00 PM Taya-wound Assessment MICHAEL 05/25/2019 9:00 PM Closure Unable to assess 05/25/2019 9:00 PM Drainage Amount None 05/25/2019 9:00 PM Drainage Odor No odor 05/25/2019 9:00 PM Dressing Status Clean/Dry/Intact 05/25/2019 9:00 PM Dressing ABD;Prasanth wrap 05/25/2019 9:00 PM Interventions Other (Comment) 05/25/2019 9:00 PM Surgical Site 05/25/19 Left Knee (Active) Site Assessment MICHAEL 05/25/2019 9:00 PM Taya-wound Assessment MICHAEL 05/25/2019 9:00 PM Closure Unable to assess 05/25/2019 9:00 PM Drainage Amount None 05/25/2019 9:00 PM Drainage Odor No odor 05/25/2019 9:00 PM Dressing Status Clean/Dry/Intact 05/25/2019 9:00 PM Dressing Prasanth wrap 05/25/2019 9:00 PM Adhesive Closure Strips Applied 05/25/2019 2:30 PM Interventions Other (Comment) 05/25/2019 9:00 PM Physical Exam: Awake, alert, oriented No acute distress Breathing regular and unlabored Dressing clean and dry Sensation intact in the superficial peroneal, deep peroneal, and tibial nerves 5/5 strength TA, GS, EHL, FHL Dorsalis pedis pulse on affected limb palpable Lab/Radiology/Diagnostic Review: Laboratory review: Lab results in the last 12 hours: Recent Results (from the past 12 hour(s)) Protime-INR Collection Time: 05/26/19 9:52 PM Result Value Ref Range PT 13.7 (H) 8.6 - 13.0 sec INR 1.3 (H) 0.8 - 1.2 CBC with auto differential Collection Time: 05/26/19 9:52 PM Result Value Ref Range WBC 7.1 3.8 - 9.9 K/cumm Hgb 8.9 (L) 11.9 - 15.5 g/dL Hct 27.5 (L) 35.6 - 45.5 % Plt 210 150 - 400 K/cumm MPV 10.0 9.1 - 12.3 fL RBC 2.80 (L) 3.90 - 5.20 M/cumm MCV 98.2 (H) 81.3 - 96.4 fL MCH 31.8 27.1 - 33.3 pg MCHC 32.4 32.3 - 35.7 g/dL RDW CV 15.2 (H) 11.1 - 14.9 % RDW SD 54.1 (H) 35.7 - 48.1 fL NRBC abs 0.00 0.00 - 0.01 K/cumm Basic metabolic panel Collection Time: 05/26/19 9:52 PM Result Value Ref Range Sodium 134 (L) 135 - 145 mmol/L Potassium, pl 4.2 3.3 - 4.9 mmol/L Chloride 104 97 - 110 mmol/L CO2 25 22 - 32 mmol/L Anion gap 5 2 - 15 mmol/L BUN 17 8 - 25 mg/dL Creatinine 0.45 (L) 0.60 - 1.10 mg/dL Glucose 222 (H) 70 - 199 mg/dL Calcium 8.3 (L) 8.5 - 10.3 mg/dL Differential, auto Collection Time: 05/26/19 9:52 PM Result Value Ref Range Neutrophil abs 5.2 1.7 - 6.5 K/cumm Imm gran abs 0.0 0.0 - 0.1 K/cumm Lymphocyte abs 1.2 0.8 - 3.3 K/cumm Monocyte abs 0.6 0.2 - 0.8 K/cumm Eosinophil abs 0.1 0.0 - 0.5 K/cumm Basophil abs 0.0 0.0 - 0.1 K/cumm Neutrophil pct 72.9 % Imm gran pct 0.7 % Lymphocyte pct 17.4 % Monocyte pct 7.9 % Eosinophil pct 1.0 % Basophil pct 0.1 % POCT glucose Collection Time: 05/26/19 9:55 PM Result Value Ref Range Glucose, POC 235 (H) 70 - 199 mg/dL POCT glucose Collection Time: 05/27/19 1:07 AM Result Value Ref Range Glucose, POC 170 70 - 199 mg/dL POCT glucose Collection Time: 05/27/19 4:35 AM Result Value Ref Range Glucose, POC 174 70 - 199 mg/dL Giovanna Wu MD Orthopaedic Surgery, PGY-2 ?? During normal business hours - If you know the resident's name on the appropriate orthopaedic surgery team, please use [employer] Display [employer] to page resident directly. ?? If you have questions overnight or can't reach the appropriate resident, please call the Orthopaedic Surgery Consult Pager [phone] to have your questions answered or be directed to the correct Orthopaedic Surgery resident. Cosigned by Kaveh Charles MD at 05/27/2019 8:48 AM CDT Associated attestation - Kaveh Charles MD - 05/27/2019 8:48 AM CDT I have seen and examined the patient in the hospital on 05/27/2019. I agree with the assessment of Dr. Wu, as documented in her note. Today's plan will be PT/OT and continue to monitor her heart rate, given episode of a fib overnight. Kaveh Charles M.D. Analytics Architect, Orthopaedic Surgery * Ryann Ribeiro MD - 05/27/2019 4:00 AM CDT Orthopaedic Surgery Progress Note Received call from ARMANI Crawley that patient is in Afib on telemetry with HRs in 130s-140s. Otherwise hemodynamically stable, with BPs in 120s/70s. She did receive her nighttime dose of carvedilol 25 mgat 2129. Presented to bedside to evaluate the patient. She is resting comfortably, denies any chestpain, SOB, or palpitations. EKG demonstrates AFib w/ RVR, HR 131. Will give 5mg IV metoprolol. Ryann Ribeiro MD Department of Orthopaedic Surgery, PGY-1 [facility] [phone] * Dolores Florez, [facility] - 05/26/2019 2:28 PM CDT IP Social Work Assessment Social History: Prior to admission the patient was living at home independently. Pt resides with her spouse Ravi Pearce [phone]. Pt reports that she does not use DME but believes she owns walker/cane. Pt's best friends Pat and Luis M were at bedside during assessment. 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 Additional Information: Social work met with the patient/family to obtain assessment information and discuss d/c planning needs. Social work informed the patient/family that d/c recommendations indicate transfer to SNF rehab. Social work provided information on the rehabilitation process and provided information on SNF rehab. Social work provided information on [facility] and emphasized the importance of continuity of care. Social work discussed d/c options to meet the patient's needs and provided a printed list of facilities for review. Patient/family are agreeable and will review the list of facilities. Pt inquired about home and services. SW discussed both options. Patient is able to obtain prescription medications via insurance and will likely require assistance with d/c transport. Allscripts referral will be sent to [facility] per social work protocol, additional referrals will be sent prn per patient/family request. Impressions: Patient was sitting in the chair at the time of the assessment. Pt is a&Ox4. Pt's friends at bedside throughout assessment. Based on a comprehensive family assessment, assistance with instrumental activities of daily livingafter discharge will be provided by snf. Through the course of our work I determined that snf possesses the skill and ability to provide andmonitor the care of the patient when he or she returns home. snf has the capacity to provide/monitor/arrange for the care of the patient. Finally, we determined that snf has the knowledge of available resources and that combining them with their existing resources will suffice to sustain and care for the patient when he or she returns home. The treatment team is aware of this information. All arein agreement with the aftercare plan. Problem: Patient identified as benefiting from continued therapy services at d/c. PT/OT recs for snf Goal: Social work will work on placement assistance for discharge planning purposes. Social Work Plan: Allscripts referral will be sent to facilities of choice once decided. Insurance Information: [employer] Assessment: Information Information Obtained From: (P) Patient Referral Data Referral Source: (P) Physician Referral Reason: (P) Discharge Planning Prior to Admission Primary Caregiver: (P) Self Support System: (P) Spouse/Significant Other(Ravi Pearce [phone]) Durable Medical Equipment: (P) None Living Arrangements: (P) Spouse/significant other Type of Residence: (P) Private residence Financial Resource Income: (P) Care Home/Pension Potential Discharge Needs Anticipated discharge level of care: (P) shelter facility Pt/Family agrees with Anticipated Level of Care: (P) Yes Patient expects to be discharged to:: (P) Alf Facility Dialysis: (P) No Behavioral Health Services: (P) No (05/26/19 3923) Dolores Florez [facility] Social Work [phone] * Suzie Wu MD - 05/26/2019 5:31 AM CDT Ortho Recon Daily Progress Subjective Prema Pearce [id number] 79 y/o F POD 1 s/p L distal femoral replacement. S: Doing well, pain mostly controlled. Oxy has not been scheduled so has missed some doses early inrecovery. Did not stand yesterday. O: AFVSS LLE NVI Dressing c/d/i H/H: 9.2/28.7 Cr: 0.62 K 4.1 Plan: D/c lechuga catheter WBAT LLE Mobilize w/ PT and OT Pain regimen adjusted as follows: Oxy now q4h scheduled Coumadin/ACP Additional needs: None Dispo: Home w/ HH pending therapy Recent Labs Lab Units 05/25/19 2304 05/25/[id number]/[id number] HEMOGLOBIN g/dL -- 9.2* -- -- HEMATOCRIT % -- 28.7* -- -- SODIUM mmol/L -- -- -- 137 POTASSIUM PLASMA mmol/L -- -- -- 4.1 CREATININE mg/dL -- -- -- 0.62 GLUCOSE mg/dL -- -- -- 171 POC GLUCOSE MONITOR mg/dL 174 -- < > -- PROTIME (PT) sec -- 13.3* -- -- INR -- 1.2 -- -- < > = values in this interval not displayed. Objective Vitals: 24hr Min/Max: Temp Min: 36 ??C (96.8 ??F) Max: 36.8 ??C (98.3 ??F) Pulse Min: 57 Max: 121 BP Min: 102/71 Max: 140/95 Resp Min: 10 Max: 24 SpO2 Min: 90 % Max: 100 % Most Recent : Vitals: 05/26/19 0429 BP: 132/80 Pulse: 118 Resp: 14 Temp: 36.7 ??C (98.1 ??F) SpO2: 94% I/O last 2 completed shifts: In: 3070 [I.V.:1000; Blood:250; IV Piggyback:1820] Out: 1180 [Urine:880; Blood:300] No intake/output data recorded. Surgical Site 05/22/19 Left Leg (Active) Site Assessment MICHAEL 05/25/2019 9:00 PM Tyaa-wound Assessment MICHAEL 05/25/2019 9:00 PM Closure Unable to assess 05/25/2019 9:00 PM Drainage Amount None 05/25/2019 9:00 PM Drainage Odor No odor 05/25/2019 9:00 PM Dressing Status Clean/Dry/Intact 05/25/2019 9:00 PM Dressing ABD;Prasanth wrap 05/25/2019 9:00 PM Interventions Other (Comment) 05/25/2019 9:00 PM Surgical Site 05/25/19 Left Knee (Active) Site Assessment MICHAEL 05/25/2019 9:00 PM Taya-wound Assessment MICHAEL 05/25/2019 9:00 PM Closure Unable to assess 05/25/2019 9:00 PM Drainage Amount None 05/25/2019 9:00 PM Drainage Odor No odor 05/25/2019 9:00 PM Dressing Status Clean/Dry/Intact 05/25/2019 9:00 PM Dressing Prasanth wrap 05/25/2019 9:00 PM Adhesive Closure Strips Applied 05/25/2019 2:30 PM Interventions Other (Comment) 05/25/2019 9:00 PM Physical Exam: Awake, alert, oriented No acute distress Breathing regular and unlabored Dressing clean and dry Sensation intact in the superficial peroneal, deep peroneal, and tibial nerves 5/5 strength TA, GS, EHL, FHL Dorsalis pedis pulse on affected limb palpable Lab/Radiology/Diagnostic Review: Laboratory review: Lab results in the last 12 hours: Recent Results (from the past 12 hour(s)) Basic metabolic panel Collection Time: 05/25/19 8:30 PM Result Value Ref Range Sodium 137 135 - 145 mmol/L Potassium, pl 4.1 3.3 - 4.9 mmol/L Chloride 104 97 - 110 mmol/L CO2 29 22 - 32 mmol/L Anion gap 4 2 - 15 mmol/L BUN 18 8 - 25 mg/dL Creatinine 0.62 0.60 - 1.10 mg/dL Glucose 171 70 - 199 mg/dL Calcium 8.1 (L) 8.5 - 10.3 mg/dL POCT glucose Collection Time: 05/25/19 9:08 PM Result Value Ref Range Glucose, POC 167 70 - 199 mg/dL CBC with auto differential Collection Time: 05/25/19 10:42 PM Result Value Ref Range WBC 7.4 3.8 - 9.9 K/cumm Hgb 9.2 (L) 11.9 - 15.5 g/dL Hct 28.7 (L) 35.6 - 45.5 % Plt 232 150 - 400 K/cumm MPV 10.4 9.1 - 12.3 fL RBC 2.95 (L) 3.90 - 5.20 M/cumm MCV 97.3 (H) 81.3 - 96.4 fL MCH 31.2 27.1 - 33.3 pg MCHC 32.1 (L) 32.3 - 35.7 g/dL RDW CV 15.0 (H) 11.1 - 14.9 % RDW SD 52.3 (H) 35.7 - 48.1 fL NRBC abs 0.00 0.00 - 0.01 K/cumm Protime-INR Collection Time: 05/25/19 10:42 PM Result Value Ref Range PT 13.3 (H) 8.6 - 13.0 sec INR 1.2 0.8 - 1.2 Differential, auto Collection Time: 05/25/19 10:42 PM Result Value Ref Range Neutrophil abs 5.4 1.7 - 6.5 K/cumm Imm gran abs 0.0 0.0 - 0.1 K/cumm Lymphocyte abs 1.2 0.8 - 3.3 K/cumm Monocyte abs 0.7 0.2 - 0.8 K/cumm Eosinophil abs 0.0 0.0 - 0.5 K/cumm Basophil abs 0.0 0.0 - 0.1 K/cumm Neutrophil pct 73.2 % Imm gran pct 0.4 % Lymphocyte pct 15.8 % Monocyte pct 9.8 % Eosinophil pct 0.4 % Basophil pct 0.4 % POCT glucose Collection Time: 05/25/19 11:04 PM Result Value Ref Range Glucose, POC 174 70 - 199 mg/dL Giovanna Wu MD Orthopaedic Surgery, PGY-2 ?? During normal business hours - If you know the resident's name on the appropriate orthopaedic surgery team, please use [employer] Display [email or web address] to page resident directly. ?? If you have questions overnight or can't reach the appropriate resident, please call the Orthopaedic Surgery Consult Pager [phone] to have your questions answered or be directed to the correct Orthopaedic Surgery resident. * Suzie Wu MD - 05/25/2019 5:59 AM CDT [place] Recon Daily Progress Subjective Prema [id number] 79 y/o F POD 3 s/p L type 3 open distal femur I&D. S: Doing well, no concerns. Was asymptomatic during tachycardic run overnight. Denied CP/SOB/palpitations. Coreg was held (no order from provider to do so) apparently due to soft pressures during theday. Resolved with 1 dose IV metoprolol. Pt has been NPO for OR today, lovenox has been held. O: AFVSS LLE NVI Dressing c/d/i H/H: 9.4/28.7 Cr: 0.45 INR 1.3 Plan: NWB LLE Pain controlled on current regimen Hold all AC for OR today Additional needs: Continue ancef for open fx ppx Dispo: OR today for L DFR Recent Labs Lab Units 05/25/19 0334 05/24/19 2208 HEMOGLOBIN g/dL -- -- 9.4* HEMATOCRIT % -- -- 28.7* SODIUM mmol/L -- -- 132* POTASSIUM PLASMA mmol/L -- -- 4.3 CREATININE mg/dL -- -- 0.45* GLUCOSE mg/dL -- -- 149 POC GLUCOSE MONITOR mg/dL 164 < > -- PROTIME (PT) sec -- -- 14.6* INR -- -- 1.3* < > = values in this interval not displayed. Objective Vitals: 24hr Min/Max: Temp Min: 36.3 ??C (97.3 ??F) Max: 37.3 ??C (99.1 ??F) Pulse Min: 56 Max: 116 BP Min: 87/48 Max: 132/82 Resp Min: 18 Max: 19 SpO2 Min: 98 % Max: 100 % Most Recent : Vitals: 05/25/19 0315 BP: 114/70 Pulse: 110 Resp: 18 Temp: 36.9 ??C (98.4 ??F) SpO2: 100% I/O last 2 completed shifts: In: - Out: 1050 [Urine:1050] I/O this shift: In: 20 [IV Piggyback:20] Out: 200 [Urine:200] Surgical Site 05/22/19 Left Leg (Active) Site Assessment MICHAEL 05/22/2019 9:46 PM Taya-wound Assessment MICHAEL 05/22/2019 9:46 PM Closure Unable to assess 05/22/2019 9:46 PM Drainage Amount MICHAEL 05/22/2019 9:46 PM Drainage Odor No odor 05/22/2019 9:46 PM Dressing Status New 05/22/2019 9:46 PM Dressing Prasanth wrap;Splint 05/22/2019 9:46 PM Physical Exam: Awake, alert, oriented No acute distress Breathing regular and unlabored Dressing clean and dry Sensation intact in the superficial peroneal, deep peroneal, and tibial nerves 5/5 strength TA, GS, EHL, FHL Dorsalis pedis pulse on affected limb palpable Lab/Radiology/Diagnostic Review: Laboratory review: Lab results in the last 12 hours: Recent Results (from the past 12 hour(s)) POCT glucose Collection Time: 05/24/19 8:59 PM Result Value Ref Range Glucose, POC 159 70 - 199 mg/dL CBC with auto differential Collection Time: 05/24/19 10:08 PM Result Value Ref Range WBC 6.5 3.8 - 9.9 K/cumm Hgb 9.4 (L) 11.9 - 15.5 g/dL Hct 28.7 (L) 35.6 - 45.5 % Plt 194 150 - 400 K/cumm MPV 10.3 9.1 - 12.3 fL RBC 2.98 (L) 3.90 - 5.20 M/cumm MCV 96.3 81.3 - 96.4 fL MCH 31.5 27.1 - 33.3 pg MCHC 32.8 32.3 - 35.7 g/dL RDW CV 13.9 11.1 - 14.9 % RDW SD 48.5 (H) 35.7 - 48.1 fL NRBC abs 0.00 0.00 - 0.01 K/cumm Basic metabolic panel Collection Time: 05/24/19 10:08 PM Result Value Ref Range Sodium 132 (L) 135 - 145 mmol/L Potassium, pl 4.3 3.3 - 4.9 mmol/L Chloride 100 97 - 110 mmol/L CO2 23 22 - 32 mmol/L Anion gap 9 2 - 15 mmol/L BUN 18 8 - 25 mg/dL Creatinine 0.45 (L) 0.60 - 1.10 mg/dL Glucose 149 70 - 199 mg/dL Calcium 8.2 (L) 8.5 - 10.3 mg/dL Protime-INR Collection Time: 05/24/19 10:08 PM Result Value Ref Range PT 14.6 (H) 8.6 - 13.0 sec INR 1.3 (H) 0.8 - 1.2 Differential, auto Collection Time: 05/24/19 10:08 PM Result Value Ref Range Neutrophil abs 4.0 1.7 - 6.5 K/cumm Imm gran abs 0.0 0.0 - 0.1 K/cumm Lymphocyte abs 1.6 0.8 - 3.3 K/cumm Monocyte abs 0.7 0.2 - 0.8 K/cumm Eosinophil abs 0.1 0.0 - 0.5 K/cumm Basophil abs 0.0 0.0 - 0.1 K/cumm Neutrophil pct 62.6 % Imm gran pct 0.3 % Lymphocyte pct 24.5 % Monocyte pct 10.6 % Eosinophil pct 1.5 % Basophil pct 0.5 % Magnesium Collection Time: 05/24/19 10:08 PM Result Value Ref Range Magnesium 2.2 1.4 - 2.5 mg/dL POCT glucose Collection Time: 05/24/19 11:32 PM Result Value Ref Range Glucose, POC 153 70 - 199 mg/dL POCT glucose Collection Time: 05/25/19 3:34 AM Result Value Ref Range Glucose, POC 164 70 - 199 mg/dL Giovanna Wu MD Orthopaedic Surgery, PGY-2 ?? During normal business hours - If you know the resident's name on the appropriate orthopaedic surgery team, please use [employer] Display [email or web address] to page resident directly. ?? If you have questions overnight or can't reach the appropriate resident, please call the Orthopaedic Surgery Consult Pager [phone] to have your questions answered or be directed to the correct Orthopaedic Surgery resident. * Ryann Ribeiro MD - 05/25/2019 12:47 AM CDT Orthopaedic Surgery Progress Note Received call from RN stating that patient has been tachycardic into the 120s for the past 5-10 minutes. She is otherwise asymptomatic and hemodynamically stable. EKG obtained, demonstrating HR 127, AFib w/ RVR. Presented to bedside to evaluate the patient. She is resting comfortably and denies anychest pain, SOB, or palpitations. Her nighttime dose of carvedilol had been held due to soft BPs earlier in the day, but her BPs are now in 120s/60s. Spoke with General Ledger Accountant, will give pt metoprolol 12.5 mg as metoprolol should have less of an effect on her BP than carvedilol. Will continue tomonitor on telemetry. If HR does not improve within initial dose of metoprolol, will give an additional 12.5 mg. Ryann Ribeiro MD Department of Orthopaedic Surgery, PGY-1 [facility] [place]/[facility] [phone] * Suzie Wu MD - 05/24/2019 5:44 AM CDT Ortho Recon Daily Progress Subjective Prema Pearce [id number] 79 y/o F POD 2 s/p L type 3 open distal femur I&D. Recon team assuming primary care of patient as we will plan for a DFR later this week. S: Doing well, no concerns. Consented yesterday, no new questions regarding care. O: AFVSS LLE NVI Dressing c/d/i H/H: 9.2/28.1 Cr: 0.59 Plan: NWB LLE Pain controlled on current regimen Lovenox 30m BID for DVT ppx Additional needs: None, will pre-op tonight for OR tomorrow. Dispo: Pending surgical intervention Recent Labs Lab Units 05/24/19 0454 05/23/19 2220 05/22/19 0457 HEMOGLOBIN g/dL -- -- 9.2* < > -- HEMATOCRIT % -- -- 28.1* < > -- SODIUM mmol/L -- -- 136 < > -- POTASSIUM PLASMA mmol/L -- -- 3.8 < > -- CREATININE mg/dL -- -- 0.59* < > -- GLUCOSE mg/dL -- -- 163 < > -- POC GLUCOSE MONITOR mg/dL 155 < > -- < > -- PROTIME (PT) sec -- -- -- -- 15.1* INR -- -- -- -- 1.4* < > = values in this interval not displayed. Objective Vitals: 24hr Min/Max: Temp Min: 36.6 ??C (97.9 ??F) Max: 37.6 ??C (99.7 ??F) Pulse Min: 88 Max: 124 BP Min: 96/68 Max: 126/73 Resp Min: 16 Max: 16 SpO2 Min: 94 % Max: 98 % Most Recent : Vitals: 05/24/19 0402 BP: 120/77 Pulse: 112 Resp: 16 Temp: 36.6 ??C (97.9 ??F) SpO2: 96% I/O last 2 completed shifts: In: - Out: 1450 [Urine:1450] No intake/output data recorded. Surgical Site 05/22/19 Left Leg (Active) Site Assessment MICHAEL 05/22/2019 9:46 PM Taya-wound Assessment MICHAEL 05/22/2019 9:46 PM Closure Unable to assess 05/22/2019 9:46 PM Drainage Amount MICHAEL 05/22/2019 9:46 PM Drainage Odor No odor 05/22/2019 9:46 PM Dressing Status New 05/22/2019 9:46 PM Dressing Prasanth wrap;Splint 05/22/2019 9:46 PM Physical Exam: Awake, alert, oriented No acute distress Breathing regular and unlabored Dressing clean and dry Sensation intact in the superficial peroneal, deep peroneal, and tibial nerves 5/5 strength TA, GS, EHL, FHL Dorsalis pedis pulse on affected limb palpable Lab/Radiology/Diagnostic Review: Laboratory review: Lab results in the last 12 hours: Recent Results (from the past 12 hour(s)) POCT glucose Collection Time: 05/23/19 9:43 PM Result Value Ref Range Glucose, POC 173 70 - 199 mg/dL CBC with auto differential Collection Time: 05/23/19 10:20 PM Result Value Ref Range WBC 7.0 3.8 - 9.9 K/cumm Hgb 9.2 (L) 11.9 - 15.5 g/dL Hct 28.1 (L) 35.6 - 45.5 % Plt 186 150 - 400 K/cumm MPV 9.8 9.1 - 12.3 fL RBC 2.92 (L) 3.90 - 5.20 M/cumm MCV 96.2 81.3 - 96.4 fL MCH 31.5 27.1 - 33.3 pg MCHC 32.7 32.3 - 35.7 g/dL RDW CV 13.9 11.1 - 14.9 % RDW SD 49.3 (H) 35.7 - 48.1 fL NRBC abs 0.00 0.00 - 0.01 K/cumm Basic metabolic panel Collection Time: 05/23/19 10:20 PM Result Value Ref Range Sodium 136 135 - 145 mmol/L Potassium, pl 3.8 3.3 - 4.9 mmol/L Chloride 101 97 - 110 mmol/L CO2 30 22 - 32 mmol/L Anion gap 5 2 - 15 mmol/L BUN 18 8 - 25 mg/dL Creatinine 0.59 (L) 0.60 - 1.10 mg/dL Glucose 163 70 - 199 mg/dL Calcium 8.8 8.5 - 10.3 mg/dL Differential, auto Collection Time: 05/23/19 10:20 PM Result Value Ref Range Neutrophil abs 4.7 1.7 - 6.5 K/cumm Imm gran abs 0.0 0.0 - 0.1 K/cumm Lymphocyte abs 1.5 0.8 - 3.3 K/cumm Monocyte abs 0.7 0.2 - 0.8 K/cumm Eosinophil abs 0.0 0.0 - 0.5 K/cumm Basophil abs 0.0 0.0 - 0.1 K/cumm Neutrophil pct 66.8 % Imm gran pct 0.4 % Lymphocyte pct 21.6 % Monocyte pct 10.2 % Eosinophil pct 0.7 % Basophil pct 0.3 % POCT glucose Collection Time: 05/24/19 12:43 AM Result Value Ref Range Glucose, POC 155 70 - 199 mg/dL POCT glucose Collection Time: 05/24/19 4:54 AM Result Value Ref Range Glucose, POC 155 70 - 199 mg/dL Giovanna Wu MD Orthopaedic Surgery, PGY-2 ?? During normal business hours - If you know the resident's name on the appropriate orthopaedic surgery team, please use [employer] Display System[email or web address] to page resident directly. ?? If you have questions overnight or can't reach the appropriate resident, please call the Orthopaedic Surgery Consult Pager [phone] to have your questions answered or be directed to the correct Orthopaedic Surgery resident. * Neetu Mejia RN - 05/23/2019 9:17 AM CDT 05/23/19911 Information Information Obtained From Patient Referral Data Referral Source Self referral Referral Reason Discharge Planning Prior to Admission Primary Caregiver Self Support System Spouse/Significant Other Support system contact info (name, phone, availablity) Ravi Pearce (spouse) [phone] Home Care Services No Durable Medical Equipment None Living Arrangements Spouse/significant other Type of Residence Private residence Steps in home? Yes, Outside of home Number of steps outside: 2 steps Financial Resource Income Care Home/Pension Payor Source Commercial Potential Discharge Needs Home Health (pending recs and completed surgical procedure) Anticipated discharge level of care Private residence Pt/Family agrees with Anticipated Level of Care Yes Patient expects to be discharged to: Private residence Dialysis No Behavioral Health Services No Plan of care: Anticipate safe discharge when medically stable Additional Information: Address and patient phone number verified with patient face sheet. Insurance verified:[employer] Admission source:Hospital transfer Transportation: if patient goes home Home Pharmacy verified:[facility] PCP verified:[facility] Problem:Fall resulting in fracture requiring wash-out and further OR Time Goal: CM to follow for planning and referrals as needed. Masha Mejia RN [phone] Through the course of our work I determined that Aba possesses the skill and ability to provide and monitor the care of the patient when he or she returns home. Aba has the capacity to provide/monitor/arrange for the care of the patient. Finally, we determined that Aba has the knowledge of available resources and that combining them with their existing resources will suffice to sustain and care for the patient when he or she returns home.The treatment team is aware of this information. All are in agreement with the aftercare plan. * Neetu Mejia, RN - 05/23/2019 9:11 AM CDT 05/23/19 0911 Communications Important Message from Medicare notice given to patient? No [facility] letter given? No Patient choice (Home Health/Hospice) list given to patient/hr representative? No (will be provided when dispo is determined) Alf Facility list given to patient/hr representative? No (will be provided when dispo is determined) Fiduciary Responsibility Patient/Designated decision maker was informed of [facility] fiduciary relationship as necessary * Suzie Wu MD - 05/23/2019 8:29 AM CDT Ortho Recon Daily Progress Subjective Prema Pearce [id number] 79 y/o F POD 1 s/p L type 3 open distal femur I&D. Recon team assuming primary care of patient as we will plan for a DFR later this week. S: Doing well, seen in concert with Dr. Castro of the weekend call team. Discussed that we would plan for surgery likely Thursday to give time to recover from anesthesia yesterday and give soft tissue rest. O: AFVSS LLE NVI Dressing c/d/i H/H: 9.9/30.3 Cr: 0.83 Plan: NWB LLE Pain controlled on current regimen Lovenox 30m BID for DVT ppx Additional needs: Dispo: Pending surgical intervention Recent Labs Lab Units 05/23/19 0821 05/22/19 2317 05/22/19 0457 HEMOGLOBIN g/dL -- -- 9.9* -- -- HEMATOCRIT % -- -- 30.3* -- -- SODIUM mmol/L -- -- 136 -- -- POTASSIUM PLASMA mmol/L -- -- 3.7 -- -- CREATININE mg/dL -- -- 0.83 -- -- GLUCOSE mg/dL -- -- 180 -- -- POC GLUCOSE MONITOR mg/dL 169 < > -- < > -- PROTIME (PT) sec -- -- -- -- 15.1* INR -- -- -- -- 1.4* < > = values in this interval not displayed. Objective Vitals: 24hr Min/Max: Temp Min: 36.8 ??C (98.2 ??F) Max: 37.7 ??C (99.9 ??F) Pulse Min: 57 Max: 125 BP Min: 96/57 Max: 128/108 Resp Min: 12 Max: 16 SpO2 Min: 92 % Max: 97 % Most Recent : Vitals: 05/23/19 0720 BP: 124/70 Pulse: 93 Resp: 16 Temp: 37.2 ??C (99 ??F) SpO2: 94% I/O last 2 completed shifts: In: 600 [I.V.:600] Out: 600 [Urine:600] No intake/output data recorded. Surgical Site 05/22/19 Left Leg (Active) Site Assessment MICHAEL 05/22/2019 9:46 PM Taya-wound Assessment MICHAEL 05/22/2019 9:46 PM Closure Unable to assess 05/22/2019 9:46 PM Drainage Amount MICHAEL 05/22/2019 9:46 PM Drainage Odor No odor 05/22/2019 9:46 PM Dressing Status New 05/22/2019 9:46 PM Dressing Prasanth wrap;Splint 05/22/2019 9:46 PM Physical Exam: Awake, alert, oriented No acute distress Breathing regular and unlabored Dressing clean and dry Sensation intact in the superficial peroneal, deep peroneal, and tibial nerves 5/5 strength TA, GS, EHL, FHL Dorsalis pedis pulse on affected limb palpable Lab/Radiology/Diagnostic Review: Laboratory review: Lab results in the last 12 hours: Recent Results (from the past 12 hour(s)) POCT glucose Collection Time: 05/22/19 9:23 PM Result Value Ref Range Glucose, POC 171 70 - 199 mg/dL CBC with auto differential Collection Time: 05/22/19 11:17 PM Result Value Ref Range WBC 7.4 3.8 - 9.9 K/cumm Hgb 9.9 (L) 11.9 - 15.5 g/dL Hct 30.3 (L) 35.6 - 45.5 % Plt 203 150 - 400 K/cumm MPV 10.3 9.1 - 12.3 fL RBC 3.15 (L) 3.90 - 5.20 M/cumm MCV 96.2 81.3 - 96.4 fL MCH 31.4 27.1 - 33.3 pg MCHC 32.7 32.3 - 35.7 g/dL RDW CV 13.9 11.1 - 14.9 % RDW SD 48.9 (H) 35.7 - 48.1 fL NRBC abs 0.00 0.00 - 0.01 K/cumm Basic metabolic panel Collection Time: 05/22/19 11:17 PM Result Value Ref Range Sodium 136 135 - 145 mmol/L Potassium, pl 3.7 3.3 - 4.9 mmol/L Chloride 102 97 - 110 mmol/L CO2 29 22 - 32 mmol/L Anion gap 5 2 - 15 mmol/L BUN 25 8 - 25 mg/dL Creatinine 0.83 0.60 - 1.10 mg/dL Glucose 180 70 - 199 mg/dL Calcium 8.4 (L) 8.5 - 10.3 mg/dL Differential, auto Collection Time: 05/22/19 11:17 PM Result Value Ref Range Neutrophil abs 5.3 1.7 - 6.5 K/cumm Imm gran abs 0.0 0.0 - 0.1 K/cumm Lymphocyte abs 1.3 0.8 - 3.3 K/cumm Monocyte abs 0.8 0.2 - 0.8 K/cumm Eosinophil abs 0.0 0.0 - 0.5 K/cumm Basophil abs 0.0 0.0 - 0.1 K/cumm Neutrophil pct 71.2 % Imm gran pct 0.3 % Lymphocyte pct 17.6 % Monocyte pct 10.1 % Eosinophil pct 0.5 % Basophil pct 0.3 % POCT glucose Collection Time: 05/23/19 12:12 AM Result Value Ref Range Glucose, POC 183 70 - 199 mg/dL POCT glucose Collection Time: 05/23/19 4:42 AM Result Value Ref Range Glucose, POC 156 70 - 199 mg/dL POCT glucose Collection Time: 05/23/19 8:21 AM Result Value Ref Range Glucose, POC 169 70 - 199 mg/dL Giovanna Wu MD Orthopaedic Surgery, PGY-2 ?? During normal business hours - If you know the resident's name on the appropriate orthopaedic surgery team, please use [employer] Display System[email or web address] to page resident directly. ?? If you have questions overnight or can't reach the appropriate resident, please call the Orthopaedic Surgery Consult Pager [phone] to have your questions answered or be directed to the correct Orthopaedic Surgery resident. Cosigned by Kaveh Charles MD at 05/23/2019 1:52 PM CDT Associated attestation - aKveh Charles MD - 05/23/2019 1:52 PM CDT I have seen and examined the patient in the hospital on 05/23/2019 with the resident, Dr. Wu. I agree with the assessment of Dr. Wu, as documented in her note. We will plan for a distal femoral replacement on Thursday to address her fracture. Kaveh Charles M.D. Analytics Architect, Orthopaedic Surgery * Cuba Castro MD - 05/23/2019 7:46 AM CDT The patient was seen evaluate on rounds. She is overall doing relatively well. We discussed intraoperative findings. She has also seen with Dr. Charles, whose plan performing a distal femoral replacement. We will transition care to her team. * David Horn MD - 05/22/2019 5:32 AM CDT SURGERY ACCEPT NOTE SUBJECTIVE: 79F with hx HTN, T2DM (last A1c 6.8%), afib on coumadin (INR 3.0) presents after SLMF onto concrete, +head trauma, -LOC, txf from OSH after plain films demonstrated L distal femur fracture. Transferring from ED OU. Currently resting comfortably, pain well controlled. Denies nausea/vomiting, chest pain, shortness of breath. Hemodynamically stable with no complaints at this time. PMH: Past Medical History: Diagnosis Date ??? Atrial fibrillation (CMS/HCC) ??? Dyslipidemia ??? Hypertension ??? Hypothyroidism ??? Mitral regurgitation OBJECTIVE: Vitals: 05/21/19 2330 BP: 102/76 Pulse: 116 Resp: 18 Temp: SpO2: 96% General: No acute distress, resting comfortably HEENT: NGT Nasal cannula Pulmonary: Nonlabored breathing, clear to auscultation bilaterally Abdomen: Soft, appropriately TTP, nondistended. Incision with no erythema,induration, warmth, drainage. Extremities: no edema, pedal pulses 2+ bilaterally PLAN: #LEFT distal femur open fracture - ancef - OTS consultation, planning operative mgmt - IPAP, preop labs, hold LMWH, NPO - PT/OT, pain control - PCC and IVK(10) is ordered #Afib with RVR - rates in ED 110-120 - Continue home Coreg - further perioperative mgmt per IPAP - floor with telemetry #T2DM - accuchecks and SSI 05/22/19 -- * Ayleen Goldman [facility] - 05/21/2019 11:34 PM CST [facility] P&T has approved rounding blood factors to the nearest vial size if the new dose is within +/-10% of the original dose. Product has been rounded per protocol from 2267.5 units to 2242 units. AL CLERK documented in this encounter H&P Notes * Cuba Castro MD - 05/22/2019 7:38 AM CDT I have reviewed the H&P, examined the patient, and endorse the findings as written. Plan of Care : Based on the above findings, I consider Prema Pearce to be an acceptable risk for : Procedure(s): INCISION AND DRAINAGE - FEMUR Source Note - Thang Doherty MD - 05/21/2019 8:06 PM RENTAL CLERK Orthopaedic Surgery Trauma Consult May 21, 2019 8:06 PM Reason for Consult: L Type 1 Open distal femur fracture Requesting Provider: No ref. provider found Consulting Provider: Resident - Chas/Attending - Dr. Elio Villalobos Patient (home) Insurance: Payor: [employer] / Plan: [employer] / Product Type: *No Product type* /Note: This is the primary coverage, but no account was found for this location or the patient's primary location. HPI: Prema Pearce is a 79 y.o. female: s/p SLMF p/w a L Type 1 Open Distal Femur Fx. Endorses antecedent knee pain. +HS, denies LOC. OI: Anterior knee lac. Exam: anterior <1cm thigh wound probingto bone, NVI. PMH: HTN, Afib on Warfarin (last dose 05/19), HLD. SH: never smoker, - EtOH, - drugs, retired, [place] w/o assist. Pain: -Location: site of injury -Onset: immediate -Duration: hours -Severity: 6-8/10 -Quality: sharp, stabbing -Alleviating Factors: rest, pain medications -Exacerbating Factors: movement, weightbearing Past Medical History: Diagnosis Date ??? Atrial fibrillation (CMS/HCC) ??? Dyslipidemia ??? Hypertension ??? Hypothyroidism ??? Mitral regurgitation Past Surgical History: Procedure Laterality Date ??? BREAST LUMPECTOMY ??? CHOLECYSTECTOMY ??? HYSTERECTOMY Prior to Admission medications Medication Sig Start Date End Date Taking? Authorizing Provider ALPRAZolam (XANAX) 0.25 mg tablet PRN Historical Provider, amLODIPine (NORVASC) 5 mg tablet TAKE ONE TABLET BY MOUTH ONCE DAILY 11/16/18 Catarina Huerta MD carvedilol (COREG) 25 mg tablet Take 1 tablet (25 mg total) by mouth 2 (two) times a day with meals12/27/18 12/27/19 Cathleen Garcia MD cholecalciferol, vitamin D3, (VITAMIN D3 ORAL) Take by mouth daily Historical Provider, DULoxetine DR (CYMBALTA) 30 mg capsule Take 60 mg by mouth daily 09/30/17 Historical Provider, furosemide (LASIX) 20 mg tablet Take 1 tablet (20 mg total) by mouth daily 12/27/18 12/27/19 Cathleen Garcia MD hydroCHLOROthiazide (HYDRODIURIL) 25 mg tablet TAKE ONE TABLET BY MOUTH ONCE DAILY 11/16/18 Catarina Huerta MD levothyroxine (SYNTHROID, LEVOTHROID) 25 mcg tablet Take 25 mcg by mouth daily 03/24/18 Historical Provider, losartan (COZAAR) 100 mg tablet TAKE ONE TABLET BY MOUTH ONCE DAILY 01/03/19 Cathleen Garcia MD lovastatin (MEVACOR) 10 mg tablet Take 10 mg by mouth nightly Historical Provider, lovastatin (MEVACOR) 10 mg tablet TAKE ONE TABLET BY MOUTH ONCE DAILY AT BEDTIME 12/28/18 Glenn Walker MD metFORMIN (GLUCOPHAGE) 1,000 mg tablet Take one tablet once daily at bedtime Historical Provider, multivit,iron,minerals/lutein (CENTRUM SILVER ULTRA WOMEN'S ORAL) Take by mouth daily Historical Provider, potassium chloride ER (KLOR-CON) 20 mEq CR tablet Take 1 tablet (20 mEq total) by mouth daily 12/27/18 12/27/19 Cathleen Garcia MD warfarin (COUMADIN) 1 mg tablet 1-2 tablets daily, only when directed, based on INR results 04/18/19 Cathleen Garcia MD warfarin (COUMADIN) 2 mg tablet TAKE 1-2 TABLETS BY MOUTH EVERY DAY DIRECTED Patient taking differently: TAKE 1 TABLET BY MOUTH EVERY DAY DIRECTED 05/28/18 Catarina Huerta MD zolpidem (AMBIEN) 5 mg tablet Take 5 mg by mouth nightly. at bedtime. 09/16/17 Historical Provider, Allergies Allergen Reactions ??? Prasanth Inhibitors Cough Reaction: COUGH, ??? Citalopram ??? Lisinopril Social History Tobacco Use ??? Smoking status: Never Smoker ??? Smokeless tobacco: Never Used Substance Use Topics ??? Alcohol use: Not on file Family History Problem Relation [...] diabetes mellitus - (Added by TW Conv) Review of Systems: Review of systems per HPI and otherwise all other systems are negative. Objective Vitals: 24hr Min/Max: Temp Min: 36.6 ??C (97.9 ??F) Max: 36.6 ??C (97.9 ??F) Pulse Min: 102 Max: 131 BP Min: 124/73 Max: 124/73 Resp Min: 12 Max: 25 SpO2 Min: 87 % Max: 97 % Most Recent: Vitals: 05/21/19192905/21/19193805/21/19193905/21/191944 BP: Pulse: 116 (!) 129 102 (!) 131 Resp: 20 12 13 Temp: TempSrc: SpO2: 97% 96% 97% Weight: Height: Physical Exam: General: NAD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 likely needs probe, 2+ pulses, cap refill less than 2 seconds, moving toes well, rest of left leg nontender, pelvis stable, right leg and bilateral arms are nontender, C-spine is nontender, cranial nerves are intact A/P: 79-year-old with atrial fibrillation on warfarin, HTN, hyperlipidemia here with distal left femur fracture. Will obtain labs. Will upload imaging from outside hospital. Will consult Orthopedic surgery. Right now patient is pain controlled. Will likely be admitted to geriatric trauma. Berny Carrera ED Course as of May 22 718 Time: 05/20 2125 Comment: In immobilizer, ortho asking for CT knee, discussing operative plan at the moment By: Alessandro Malone MD Time: 05/20 2125 Comment: Ortho probed wound and is deeper and likely open fracture. Had already received antibiotics. Td up to date. By: Berny Carrera MD Time: 05/21 2147 Comment: Ortho is placed knee immobilizer. Will need to go to OR. However no further intervention in the ED necessary per them. By: Berny Carrera MD Time: 05/21 2327 Comment: ACCS requesting PCC and vitamin K for warfarin reversal for OR tomorrow. By: Alessandro Malone MD Closed fracture of distal end of left femur, unspecified fracture morphology, initial encounter ([facility]) Other type I or II open fracture of distal end of left femur, initial encounter ([facility]) Alessandro Malone MD Resident 05/23/19701 Berny Carrera MD 05/23/19718 * Kendy Howard RN - 05/21/2019 7:23 PM CST Pt reports to the ED after tripping and falling up 2 stairs pt went to OSH and found to have a L femur fracture. Pt transferred to [facility] ED for higher level of care. - LOC. Pt is on Blood thinners. Hither head against fridge. A&O x4. Abrasion to L knee. LE shorten. + pulses normal Sensation. Able to wiggle toes. AL CLERK * Marielena Eduardo RN - 05/21/2019 7:15 PM CST Bed: [facility] Expected date: 05/21/19 Expected time: 4:16 PM Means of arrival: Ambulance Comments: Marielena Eduardo RN 05/21/191914 AL CLERK documented in this encounter Miscellaneous Notes * Plan of Care - Tami Britton LCSW - 05/27/2019 10:01 AM CDT SW met with Pt and spouse to discuss d/c options. They were in agreement with referrals to [facility], [facility], and [facility]. [facility] referrals sent. SW to follow. * [facility] Note - Tami Britton LCSW - 05/27/2019 9:58 AM CDT Images from the original note were not included. Patient Information: Wound Info Only Patient Lines/Drains/Airways Status Active Wound / Pressure ulcer / Roy / Negative Pressure Wound None , Vitals Info Only Vital Signs 05/25 699 - 05/26 0659 05/26 699 - 05/26 0958 Most Recent Temp (??C) 36.8 - 37 36.6 36.6 (97.9) Pulse 70 - 153 122 - 127 122 Resp 16 - 20 16 16 SpO2 (%) 92 - 97 92 92 BP 107/77 - 142/89 98/65 98/65 MAP (mmHg) 80 - 101 71 71 , Home O2 last 48 hours Default Flowsheet Data (last 48 hours) Home O2 Assessment No documentation. * [facility] Note - Tami Britton LCSW - 05/27/2019 9:57 AM CDT Patient Information: OT Eval and Treat Last 72 Hours OT Evaluation Row Name 05/26/19 1058 05/25/19 0900 05/24/19 0900 05/23/19 1500 Chart Reviewed Yes -HB -- -- -- Session Type Evaluation -HB -- -- -- OT Received On 05/26/19 -HB -- -- -- Safe Environment Arm Band Checked;Call Light within Reach -HB -- -- -- Subjective Agreeable to Therapy -HB -- -- -- OT Missed Visit Reason -- -- Pt. going to OR - -- Awaiting surgical intervention for distal femurfx - Bedrest Awaiting surgical intervention for distal femur fx - Family/Caregiver Present No -HB -- -- -- Occupational Therapy-Patient Goal To be in less pain when moving -HB -- -- -- Precautions Fall risk -HB -- -- -- LLE Weight Bearing WBAT -HB -- -- -- Type of Home House -HB -- -- -- Home Layout One level -HB -- -- -- Home Access Stairs to enter without rails -HB -- -- -- Entrance Stairs-Number of Steps 1 -HB -- -- -- Bathroom Shower/Tub Walk-in shower with threshold -HB -- -- -- Bathroom Toilet Standard -HB -- -- -- Bathroom Equipment Shower chair -HB -- -- -- Home Mobility Equipment Wheeled walker;Single point cane -HB -- -- -- Additional Comments No AD at baseline -HB -- -- -- Level of Dale Independent with ADLs;Independent functional transfers;Independent with ambulation;Independent with homemaking with ambulation -HB -- -- -- Lives With Spouse -HB -- -- -- Receives Help From Family F/T assist available -HB -- -- -- Driving Yes -HB -- -- -- Mode of Transportation Driven by self -HB -- -- -- ADL Assistance Independent -HB -- -- -- Instrumental ADL (IADL) Assistance Independent -HB -- -- -- Fall within the last 6 months Yes -HB -- -- -- ADLS (WDL) X -HB -- -- -- Grooming: Where assessed Edge of bed -HB -- -- -- Grooming: Level of assistance Moderate Assist Unable to tolerate in standing -HB -- -- -- Toilet Transfer From Bed -HB -- -- -- Toilet Transfer Type To and from -HB -- -- -- Toilet Transfer to Standard bedside commode -HB -- -- -- Toilet Transfer Technique Stand pivot -HB -- -- -- Toilet Transfer: Equipment Wheeled walker -HB -- -- -- Toilet Transfers Minimal assistance -HB -- -- -- Toilet Transfers Comments force production, balance; limited by pain -HB -- -- -- Pain Assessment 0-10 -HB -- -- -- Pain Score 8 -HB -- -- -- Pain Orientation Left -HB -- -- -- Pain Interventions RN Notified -HB -- -- -- Overall Cognitive Status [facility] - -- -- -- Arousal/Alertness Alert;Appropriate responses to stimuli -HB -- -- -- Attention Span Appears intact -HB -- -- -- Memory Appears intact -HB -- -- -- Current communication Appears Intact -HB -- -- -- Orientation Oriented X4 (person, place, time, situation) -HB -- -- -- Following Commands Follows all commands and directions without difficulty -HB -- -- -- Safety Judgment Good awareness of safety precautions -HB -- -- -- Awareness of Errors Good awareness of errors made -HB -- -- -- Insight Fully aware of deficits -HB -- -- -- Problem Solving Able to problem solve independently -HB -- -- -- Compliance/Behavior Easy to engage -HB -- -- -- Perseveration Not present -HB -- -- -- Motor Planning Appears intact - -- -- -- Fine Motor [facility] - -- -- -- Serial Opposition [facility] -- -- -- Coordination Functional -HB -- -- -- Gross Grasp Functional -HB -- -- -- RUE Reach [facility] - -- -- -- LUE Reach [facility] - -- -- -- RUE Grasp Gross grasp 5/5 - -- -- -- LUE Grasp Gross grasp 5/5 - -- -- -- Balance Yes -HB -- -- -- Static Sitting-Balance Support Bilateral upper extremity supported;Feet supported -HB -- -- -- Static Sitting-Sitting Surface Bed -HB -- -- -- Static Sitting-Level of Assistance Close supervision -HB -- -- -- Static Standing-Balance Support Bilateral upper extremity supported -HB -- -- -- Static Standing-Standing Surface Floor -HB -- -- -- Static Standing-Level of Assistance Close supervision -HB -- -- -- Transfer From 1 Sit -HB -- -- -- Transfer Type 1 To and from -HB -- -- -- Transfer to 1 Stand -HB -- -- -- Technique 1 Sit to stand;Stand to sit -HB -- -- -- Transfer Device 1 Wheeled walker -HB -- -- -- Transfer Level of Assistance 1 Minimum Assist -HB -- -- -- Comments Educated pt on role of OT and purpose of evaluation. Pt would benefit from continued OT services in order to increase independence with ADLs, to PLOF. Pt deficits include: impaired balance, increased pain, impaired overall strength, decreased mobility/ability to transfer, decreased ROM impacting ability to complete ADLs. Pt left with needs met, call charles close. -HB -- -- -- Prognosis Good -HB -- -- -- Problem List Decreased endurance;Decreased balance;Decreased functional mobility;Decreased ADL independence;Decreased IADL independence -HB -- -- -- Barriers to Discharge Current Mobility Status -HB -- -- -- Plan Plan of care initiated;If this is the last note, consider this the discharge summary -HB -- ---- OT Recommendation Inpatient Rehab Facility -HB -- -- -- OT Frequency 3-5x/wk -HB -- -- -- Treatment/Interventions ADL/IADL retraining;Balance Training;Bed mobility;Endurance training;Functional activity;Functional mobility training;Functional transfer training;Positioning;Parent/caregivertraining and education;Range of motion;Strengthening;Therapeutic activity;Therapeutic exercise;Transfer training -HB -- -- -- OT - Next Appointment 05/27/19 - -- -- -- OT - OK to Discharge Yes -HB -- -- -- OT Evaluation Complete Yes -HB -- -- -- User Montgomery (r) = Recorded By, (t) = Taken By, (c) = Cosigned By Initials Name Effective Dates HB Fadumo Benavides, OT 02/14/19 - PRAKASH Morrison, OT 12/06/18 - OT Treatment No documentation. OT Notes (Notes from 05/25/19 through 05/27/19) No notes of this type exist for this encounter. , PT Eval and Treat Last 72 Hours PT Evaluation Row Name 05/26/19 0800 05/25/19 1217 05/23/19 1058 Chart Reviewed Yes -CK -- -- Session Type Evaluation -CK -- -- Safe Environment Arm Band Checked -CK -- -- Subjective Agreeable to Therapy -CK -- -- Subjective Comment pt supine in bed at start of session, scds on -CK -- -- PT Missed Visit Reason -- Procedure/testing/appointment OR today -BP Bedrest -CC Family/Caregiver Present No -CK -- -- Physical Therapy-Patient Goal be able to walk again -CK -- -- Precautions Fall risk -CK -- -- Weight Bearing Restrictions Yes -CK -- -- LLE Weight Bearing WBAT -CK -- -- Precaution Comments TKA HEP handout given -CK -- -- Type of Home House -CK -- -- Home Layout One level -CK -- -- Home Access Stairs to enter without rails -CK -- -- Entrance Stairs-Number of Steps 1 -CK -- -- Home Mobility Equipment Wheeled walker;Single point cane -CK -- -- Additional Comments did not use any device prior to surgery -CK -- -- Level of Dale Independent with ADLs;Independent with ambulation;Independent functional transfers -CK -- -- Lives With Spouse -CK -- -- Receives Help From Family 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 -CK -- -- Fall within the last 6 months Yes -CK -- -- Fall within the last 6 months comment tripped on step to enter her house -CK -- -- Pain Assessment 0-10 -CK -- -- Pain Score 6 -CK -- -- Pain Location Knee -CK -- -- Pain Orientation Left -CK -- -- Pain Interventions Cold applied;RN Notified -CK -- -- Arousal/Alertness Appropriate responses to stimuli;Alert -CK -- -- Orientation Oriented X4 (person, place, time, situation) -CK -- -- Following Commands Follows all commands and directions without difficulty -CK -- -- Light Touch WFL -CK -- -- Sensation Comments skin intact to BLE -CK -- -- Balance Yes -CK -- -- Static Sitting-Balance Support Bilateral upper extremity supported;Feet supported -CK -- -- Static Sitting-Sitting Surface Bed -CK -- -- Static Sitting-Level of Assistance Close supervision -CK -- -- Static Standing-Balance Support Bilateral upper extremity supported on walker - CK -- -- Static Standing-Standing Surface Floor -CK -- -- Static Standing-Level of Assistance Close supervision -CK -- -- Bed Mobility From 1 Supine -CK -- -- Bed Mobility Type 1 To -CK -- -- Bed Mobility to 1 Edge of bed -CK -- -- Level of Assistance 1 Minimum Assist -CK -- -- Bed Mobility Comments 1 assist to move LLE, elevate trunk -CK -- -- Transfer From 1 Sit -CK -- -- Transfer Type 1 To and from -CK -- -- Transfer to 1 Stand -CK -- -- Transfer Device 1 Wheeled walker -CK -- -- Transfer Level of Assistance 1 Minimum Assist -CK -- -- Trials/Comments 1 assist for balance and force production -CK -- -- Transfer From 2 Bed -CK -- -- Transfer Type 2 To -CK -- -- Transfer to 2 Chair with arms -CK -- -- Technique 2 -- stand and step -CK -- -- Transfer Device 2 Wheeled walker -CK -- -- Transfer Level of Assistance 2 Minimum Assist -CK -- -- Trials/Comments 2 able to take a few small steps to transfer -CK -- -- Ambulation No -CK -- -- Ambulation Comments 1 pt declined ambulation due to pain -CK -- -- RUE Assessment WFL -CK -- -- LUE Assessment WFL -CK -- -- RLE Assessment WFL -CK -- -- LLE Assessment X ankle WNL -CK -- -- Other PT Comments Gait belt used for all mobility. TKA HEP performed in supine prior to OOB mobiltiy. Pt lacking 8 deg knee extension; 28 deg active knee flexion in supine -CK -- -- How much difficulty does the patient have: Turning over in bed 3 -CK -- -- How much difficulty does the patient currently have: Sitting down and standing up from a chair witharms? 3 -CK -- -- How much difficulty does the patient have: Moving from lying on back to sitting on the side of the bed? 3 -CK -- -- How much difficulty does the patient have: Moving to and from a bed to a chair including wheelchair? 3 -CK -- -- How much help does the patient currently need: Walk in hospital room? 3 -CK -- -- How much help from another person does the patient currently need: Climbing 3-5 steps with a railing? 3 -CK -- -- Total Score (range 6-24) 18 -CK -- -- Score Interpretation 41.05 -CK -- -- Problem List Gait deviations;Decreased strength;Decreased range of motion;Decreased endurance;Impaired balance;Decreased mobility -CK -- -- Problem List Comments Pt s/p I+D, L TKA and distal femur replacement presents with deficits in transfers, ambulation due to impairments in strength, balance, pain, ROM. These deficits prevent full participation in household mobility. -CK -- -- Plan Plan of care initiated;If this is the last note, consider this the discharge summary -CK -- -- PT Recommendation/Plan Inpatient Rehab Facility -CK -- -- PT Frequency 5-7x/wk -CK -- Monitor status -CC Treatment/Interventions Balance Training;Bed mobility;Functional activity;Functional transfer training;Gait training;Stair training;Therapeutic exercise -CK -- -- PT Evaluation Complete Yes -CK -- -- User Montgomery (r) = Recorded By, (t) = Taken By, (c) = Cosigned By Initials Name Effective Dates CC Grace Echols, PT 02/14/19 - BP Pradeep Echeverria, PT 02/14/19 - CK Yoly Mcgraw, PT 02/14/19 - PT TREATMENT (last 168 hours) PT Treatment No documentation. PT Notes (Notes from 05/25/19 through 05/27/19) No notes of this type exist for this encounter. * [facility] Note - Tami Britton LCSW - 05/27/2019 9:57 AM CDT Patient Information: Meds and Admin Active Only All Meds/Most Recent Administrations ceFAZolin (ANCEF) 2,000 mg/20 mL in sterile water (premix) 2,000 mg [[id number]] Ordering Provider: Alessandro Malone MD Status: Completed (Past End Date/Time) Ordered On: 05/21/191945 Starts/Ends: 05/21/191944 - 05/21/192122 Dose (Remaining/Total): 2,000 mg (0/1) Route: intravenous Frequency: Once Rate/Duration: 400 mL/hr / 3 Minutes Line Med Link Info Comment Peripheral IV 05/21/19 18 G Left Antecubital 05/21/192036 by Kendy Howard RN -- Timestamps Action Dose / Rate / Duration Route Other Information 05/21/192036 New Bag 2,000 mg 400 mL/hr 3 Minutes intravenous Performed by: Kendy Howard RN carvediloL (COREG) tablet 25 mg [[id number]] Ordering Provider: Kaveh Charles MD Status: Dispensed Ordered On: 05/21/192220 Start: 05/21/192221 Dose (Remaining/Total): 25 mg (--/--) Route: oral Frequency: 2 times daily Rate/Duration: -- / -- Timestamps Action Dose Route Other Information 05/27/19 0814 Given 25 mg oral Performed by: Kendy Nicole RN phytonadione (VITAMIN K1) 10 mg in dextrose 5% 50 mL IVPB [[id number]] Ordering Provider: Singh Dukes Jr., MD Status: Completed (Past End Date/Time) Ordered On: 05/21/192327 Starts/Ends: 05/21/192328 - 05/22/19 0045 Dose (Remaining/Total): 10 mg (0/1) Route: intravenous Frequency: Once Rate/Duration: 153 mL/hr / 20 Minutes Admin Instructions: Protect from light. Timestamps Action Dose / Rate / Duration Route Other Information 05/22/19 0025 New Bag 10 mg 153 mL/hr 20 Minutes intravenous Performed by: Mary Lamar RN prothrombin complex four factor (KCENTRA) injection 2,242 Units [[id number]] Ordering Provider: Singh Dukes Jr., MD Status: Completed (Past End Date/Time) Ordered On: 03/07/20 2334 Starts/Ends: 05/21/192334 - 05/22/1924 Dose (Remaining/Total): 2,242 Units (0/1) Route: intravenous Frequency: Once Rate/Duration: -- / -- Admin Instructions: Administration rate = 3 units/kg/min. Maximum rate is 500 mL/hr. If 3 units/kg/min exceeds 500 mL/hr, use a rate of 500 mL/hr. Question Answer Comment The following attending physician has approved this prothrombin complex concentrate (PCC) and factor VIIa order:: deandre -- Timestamps Action Dose Route Other Information 05/22/1924 New Bag 2,242 Units intravenous Performed by: Mary Lamar RN amLODIPine (NORVASC) tablet 5 mg [[id number]] Ordering Provider: Kaveh Charles MD Status: Dispensed Ordered On: 05/22/1910 Start: 05/22/19899 Dose (Remaining/Total): 5 mg (--/--) Route: oral Frequency: Daily Rate/Duration: -- / -- Timestamps Action Dose Route Other Information 05/27/19812 Given 5 mg oral Performed by: Kendy Nicole RN DULoxetine DR (CYMBALTA) extended release capsule 60 mg [[id number]] Ordering Provider: Kaveh Charles MD Status: Dispensed Ordered On: 05/22/1910 Start: 05/22/19899 Dose (Remaining/Total): 60 mg (--/--) Route: oral Frequency: Daily Rate/Duration: -- / -- Admin Instructions: Capsule may be opened and contents mixed with applesauce or apple juice ONLY. Do not crush, chew, cut, dissolve, open or otherwise manipulate tablet/capsule. Timestamps Action Dose Route Other Information 05/27/19813 Given 60 mg oral Performed by: Kendy Nicole RN levothyroxine (SYNTHROID) tablet 25 mcg [[id number]] Ordering Provider: Kaveh Charles MD Status: Dispensed Ordered On: 05/22/1910 Start: 05/22/19899 Dose (Remaining/Total): 25 mcg (--/--) Route: oral Frequency: Daily Rate/Duration: -- / -- Admin Instructions: Administer on an empty stomach, preferably 30 minutes before breakfast. Take 4 hours apart from antacids, iron and calcium products. Timestamps Action Dose Route Other Information 05/27/19813 Given 25 mcg oral Performed by: Kendy Nicole RN losartan (COZAAR) tablet 100 mg [[id number]] Ordering Provider: Kaveh Charles MD Status: Dispensed Ordered On: 05/22/1910 Start: 05/22/19899 Dose (Remaining/Total): 100 mg (--/--) Route: oral Frequency: Daily Rate/Duration: -- / -- Timestamps Action Dose Route Other Information 05/27/19813 Given 100 mg oral Performed by: Kendy Nicole RN lovastatin (MEVACOR) tablet 10 mg [[id number]] Ordering Provider: Kaveh Charles MD Status: Dispensed Ordered On: 05/22/1910 Start: 05/22/192099 Dose (Remaining/Total): 10 mg (--/--) Route: oral Frequency: Nightly Rate/Duration: -- / -- Admin Instructions: Take with food Timestamps Action Dose Route Other Information 05/26/192132 Given 10 mg oral Performed by: Juilssa Eaton RN acetaminophen (TYLENOL) tablet 1,000 mg [[id number]] Ordering Provider: Kaveh Charles MD Status: Dispensed Ordered On: 05/22/1910 Start: 05/22/1944 Dose (Remaining/Total): 1,000 mg (--/--) Route: oral Frequency: Every 6 hours scheduled Rate/Duration: -- / -- Timestamps Action Dose Route Other Information 05/27/19 0618 Given 1,000 mg oral Performed by: Denisa Galdamez RN dextrose (GLUTOSE) 40 % gel 15 g [[id number]] Ordering Provider: Kaveh Chrales MD Status: Verified Ordered On: 05/22/1910 Start: 05/22/1910 Dose (Remaining/Total): 15 g (--/--) Route: oral [...] Call MD for each episode of hypoglycemia. RIGGING WORKER STATES GLUTOSE-15 CONTAINS GLUCOSE 40% W/W (50% W/V) (No admins recorded for this medication) dextrose (D10W) 10% bolus 250 mL [[id number]] Ordering Provider: Kaveh Charles MD Status: Verified Ordered On: 05/22/1910 Start: 05/22/1910 Dose (Remaining/Total): 250 mL (--/--) Route: intravenous Frequency: Every 15 min PRN Rate/Duration: 1,000 mL/hr / 15 Minutes Admin Instructions: After treatment for hypoglycemia, recheck BG followed by treatment every 15 minutes until the BG is greater than 100 mg/dL. Then check BG 1 hour post treatment. If BG is less [id number] mg/dL, repeat Q15 minute BG checks and treatment. Call MD for each episode of hypoglycemia. (No admins recorded for this medication) glucagon injection 1 mg [[id number]] Ordering Provider: Kaveh Charles MD Status: Verified Ordered On: 05/22/1910 Start: 05/22/1910 Dose (Remaining/Total): 1 mg (--/--) Route: intramuscular [...] medication) insulin lispro (HumaLOG) injection 1-2 Units [[id number]] Ordering Provider: Kaveh Charles MD Status: Verified Ordered On: 05/22/19 0011 Start: 05/22/19 0045 Dose (Remaining/Total): 1-2 Units (--/--) Route: subcutaneous Frequency: Every 4 hours scheduled Rate/Duration: -- / -- Admin Instructions: Blood Sugar Low Dose NPO patients 200 or less No Insulin 201 - 250 1 unit 251 - 299 2 units Greater than 299 Call MD for hyperglycemia management instructions Do NOT hold for NPO status. Timestamps Action Dose Route / Site Other Information 05/26/192208 Given 1 Units subcutaneous Left Lower Abdomen Performed by: Julissa Eaton RN ramelteon (ROZEREM) tablet 8 mg [[id number]] Ordering Provider: Kaveh Charles MD Status: Dispensed Ordered On: 05/24/192355 Start: 05/24/192355 Dose (Remaining/Total): 8 mg (--/--) Route: oral Frequency: Nightly PRN Rate/Duration: -- / -- Timestamps Action Dose Route Other Information 05/25/19 0001 Given 8 mg oral Performed by: Mary Lamar RN metoprolol (LOPRESSOR) tablet 12.5 mg [[id number]] Ordering Provider: Ryann Ribeiro MD Status: Completed (Past End Date/Time) Ordered On: 05/25/19 0052 Starts/Ends: 05/25/19 0130 - 05/25/19 0100 Dose (Remaining/Total): 12.5 mg (0/1) Route: oral Frequency: Once Rate/Duration: -- / -- Timestamps Action Dose Route Other Information 05/25/19 010 Given 12.5 mg oral Performed by: Mary Lamar RN metoprolol (LOPRESSOR) tablet 12.5 mg [[id number]] Ordering Provider: Ryann Ribeiro MD Status: Completed (Past End Date/Time) Ordered On: 05/25/19 0326 Starts/Ends: 05/25/19 0400 - 05/25/19 0335 Dose (Remaining/Total): 12.5 mg (0/1) Route: oral Frequency: Once Rate/Duration: -- / -- Timestamps Action Dose Route Other Information 05/25/19 0335 Given 12.5 mg oral Performed by: Mary Lamar RN Lactated Ringer's (LR) bolus 1,000 mL [[id number]] Ordering Provider: Kaveh Charles MD Status: Completed (Past End Date/Time) Ordered On: 05/25/19 1015 Starts/Ends: 05/25/191099 - 05/25/19 1119 Dose (Remaining/Total): 1,000 mL (0/1) Route: intravenous Frequency: Once Rate/Duration: -- / -- Timestamps Action Dose / Rate / Duration Route Other Information 05/25/19 1119 New Bag -- intravenous Performed by: Jina Villalobos CRNA ceFAZolin (ANCEF) 2,000 mg/20 mL in sterile water (premix) 2,000 mg [[id number]] Ordering Provider: Kaveh Charles MD Status: Completed (Past End Date/Time) Ordered On: 05/25/19 1020 Starts/Ends: 05/25/19 1100 - 05/25/19 1157 Dose (Remaining/Total): 2,000 mg (0/1) Route: intravenous Frequency: Once Rate/Duration: 400 mL/hr / 3 Minutes Admin Instructions: Administer within 60 minutes of incision. Timestamps Action Dose Route Other Information 05/25/19 1157 Given 2,000 mg intravenous Performed by: Jina Villalobos CRNA vancomycin 1500 mg/515 mL in sodium chloride 0.9% (premix) 1,500 mg [[id number]] Ordering Provider: Kaveh Charles MD Status: Completed (Past End Date/Time) Ordered On: 05/25/19 1015 Starts/Ends: 05/25/19 1100 - 05/25/19 1151 Dose (Remaining/Total): 1,500 mg (0/1) Route: intravenous Frequency: Once Rate/Duration: -- / 90 Minutes Admin Instructions: Administer within 120 minutes of incision. Line Med Link Info Comment Peripheral IV 05/21/19 18 G Left Antecubital 05/25/19 1021 by Jillian Moreno RN -- Timestamps Action Dose / Duration Route Other Information 05/25/19 1021 New Bag 1,500 mg 90 Minutes intravenous Performed by: Jillian Moreno RN ketorolac (TORADOL) injection 15 mg [[id number]] Ordering Provider: Kaveh Charles MD Status: Completed (Past End Date/Time) Ordered On: 05/25/19 1020 Starts/Ends: 05/25/19 1100 - 05/25/19 1340 Dose (Remaining/Total): 15 mg (0/1) Route: intravenous Frequency: Once Rate/Duration: -- / -- Admin Instructions: INTRA-OP Give at time of skin closure Timestamps Action Dose Route Other Information 05/25/19 1340 Given 15 mg intravenous Performed by: Jina Villalobos CRNA EPINEPHrine 0.15 mg in bacteriostatic 0.9% sodium chloride 30 mL solution [[id number]] Ordering Provider: Kaveh Charles MD Status: Completed (Past End Date/Time) Ordered On: 05/25/19 1020 Starts/Ends: 05/25/191099 - 05/25/19 1302 Dose (Remaining/Total): 60 mL (0/1) Route: topical Frequency: Once Rate/Duration: -- / -- Timestamps Action Dose Route / Site Other Information 05/25/19 1302 Given 30 mL topical Surgical Site Performed by: Kaveh Charles MD Documented by: Sukhjinder Gomez RN Comments: epi soaked sponge used in the femur sodium chloride 0.9% flush 0.5-20 mL [[id number]] Ordering Provider: Kaveh Charles MD Status: Verified Ordered On: 05/25/19 1723 Start: 05/25/19 2200 Dose (Remaining/Total): 0.5-20 mL (--/--) Route: intra-catheter Frequency: Every 8 hours scheduled Rate/Duration: -- / -- Admin Instructions: Flush volume based on line type and size. Timestamps Action Dose Route Other Information 05/27/19 0529 Given 10 mL intra-catheter Performed by: Denisa Galdamez RN sodium chloride 0.9% flush 0.5-20 mL [[id number]] Ordering Provider: Kaveh Charles MD Status: Verified Ordered On: 05/25/191722 Start: 05/25/191722 Dose (Remaining/Total): 0.5-20 mL (--/--) Route: intra-catheter Frequency: As needed Rate/Duration: -- / -- Admin Instructions: Flush volume based on line type and size. Flush before and after each use. (No admins recorded for this medication) Lactated Ringer's (LR) bolus 1,000 mL [[id number]] Ordering Provider: Kaveh Charles MD Status: Completed (Past End Date/Time) Ordered On: 05/25/19 1418 Starts/Ends: 05/25/191499 - 05/25/19 1500 Dose (Remaining/Total): 1,000 mL (0/1) Route: intravenous Frequency: Once Rate/Duration: 1,000 mL/hr / 1 Hours (No admins recorded for this medication) ondansetron ODT (ZOFRAN-ODT) disintegrating tablet 4 mg [[id number]] Ordering Provider: Kaveh Charles MD Status: Verified Ordered On: 05/25/191722 Start: 05/25/191722 Dose (Remaining/Total): 4 mg (--/--) Route: oral Frequency: Every 6 hours PRN Rate/Duration: -- / -- (No admins recorded for this medication) ondansetron (ZOFRAN) injection 4 mg [[id number]] Ordering Provider: Kaveh Charles MD Status: Verified Ordered On: 05/25/191722 Start: 05/25/191722 Dose (Remaining/Total): 4 mg (--/--) Route: intravenous Frequency: Every 6 hours PRN Rate/Duration: -- / 2 Minutes (No admins recorded for this medication) senna-docusate (PERICOLACE) 8.6-50 mg per tablet 2 tablet [[id number]] Ordering Provider: Kaveh Charles MD Status: Dispensed Ordered On: 05/25/191722 Start: 05/25/19 2100 Dose (Remaining/Total): 2 tablet (--/--) Route: oral Frequency: 2 times daily Rate/Duration: -- / -- Admin Instructions: Hold for diarrhea. Timestamps Action Dose Route Other Information 05/27/19812 Given 2 tablet oral Performed by: Kendy Nicole RN polyethylene glycol (MIRALAX) packet 17 g [[id number]] Ordering Provider: Kaveh Charles MD Status: Verified Ordered On: 05/25/191722 Start: 05/25/191722 Dose (Remaining/Total): 17 g (--/--) Route: oral Frequency: Daily PRN Rate/Duration: -- / -- (No admins recorded for this medication) famotidine (PEPCID) tablet 20 mg [[id number]] Ordering Provider: Kaveh Charles MD Status: Dispensed Ordered On: 05/25/191722 Start: 05/25/192099 Dose (Remaining/Total): 20 mg (--/--) Route: oral Frequency: 2 times daily Rate/Duration: -- / -- Timestamps Action Dose Route Other Information 05/27/19812 Given 20 mg oral Performed by: Kendy Nicole RN camphor-menthoL (SARNA) 0.5-0.5 % lotion [[id number]] Ordering Provider: Kaveh Charles MD Status: Dispensed Ordered On: 05/25/191722 Start: 05/25/191722 Dose (Remaining/Total): -- (--/--) Route: topical Frequency: Every 2 hours PRN Rate/Duration: -- / -- Question Answer Comment Apply to affected area:: other surgical wound site (No admins recorded for this medication) warfarin (COUMADIN) tablet 2 mg [[id number]] Ordering Provider: Kaveh Charles MD Status: Dispensed Ordered On: 05/25/191722 Start: 05/26/19 1800 Dose (Remaining/Total): 2 mg (--/--) Route: oral Frequency: Daily (for warfarin) Rate/Duration: -- / -- Question Answer Comment Target INR: 2 - 3 -- Timestamps Action Dose Route Other Information 05/26/19 182 Given 2 mg oral Performed by: Gen Oleary RN ceFAZolin (ANCEF) 2,000 mg/20 mL in sterile water (premix) 2,000 mg [[id number]] Ordering Provider: Kaveh Charles MD Status: Completed (Past End Date/Time) Ordered On: 05/25/191722 Starts/Ends: 05/25/191999 - 05/26/19 0431 Dose (Remaining/Total): 2,000 mg (0/2) Route: intravenous Frequency: Every 8 hours Rate/Duration: 400 mL/hr / 3 Minutes Admin Instructions: Beginning 8 hours after last taya-operative dose. Timestamps Action Dose / Rate / Duration Route Other Information 05/26/19 0428 New Bag 2,000 mg 400 mL/hr 3 Minutes intravenous Performed by: Moriah Hall RN vancomycin 1500 mg/515 mL in sodium chloride 0.9% (premix) 1,500 mg [[id number]] Ordering Provider: Kaveh Charles MD Status: Completed (Past End Date/Time) Ordered On: 05/25/191722 Starts/Ends: 05/25/192229 - 05/26/19 0032 Dose (Remaining/Total): 1,500 mg (0/1) Route: intravenous Frequency: Once Rate/Duration: -- / 90 Minutes Admin Instructions: Administer 12 hours after pre-procedure dose. Timestamps Action Dose / Duration Route Other Information 05/25/192301 New Bag 1,500 mg 90 Minutes intravenous Performed by: Moriah Hall RN ketorolac (TORADOL) injection 15 mg [[id number]] Ordering Provider: Kaveh Charles MD Status: Dispensed (Past End Date/Time) Ordered On: 05/25/191722 Starts/Ends: 05/25/19 1800 - 05/26/19 0559 Dose (Remaining/Total): 15 mg (1/2) Route: intravenous Frequency: Every 6 hours Rate/Duration: -- / -- Admin Instructions: For Adult IV push, administer over 15 seconds Timestamps Action Dose Route Other Information 05/25/192301 Given 15 mg intravenous Performed by: Moriah Hall RN HYDROmorphone (DILAUDID) injection 0.2 mg [[id number]] Ordering Provider: Kaveh Charles MD Status: Dispensed Ordered On: 05/25/191722 Start: 05/25/191722 Dose (Remaining/Total): 0.2 mg (--/--) Route: intravenous Frequency: Every 3 hours PRN Rate/Duration: -- / 2 Minutes Line Med Link Info Comment Peripheral IV 05/26/19 20 G Left Antecubital 05/26/19928 by Gen Oleary RN -- Timestamps Action Dose / Duration Route Other Information 05/26/19928 Given 0.2 mg 2 Minutes intravenous Performed by: Gen Oleary RN insulin lispro (HumaLOG) injection 1-3 Units [[id number]] Ordering Provider: Yoly Medellin MD Status: Completed (Past End Date/Time) Ordered On: 05/25/191551 Starts/Ends: 05/25/19 155 - 05/25/19 160 Dose (Remaining/Total): 1-3 Units (0/1) Route: subcutaneous Frequency: Once as needed Rate/Duration: -- / -- Admin Instructions: Blood Sugar Low Dose - Surgical/Post-Op ICU 175 or less No Insulin 176 - 200 1 unit 201 - 250 2 units 251 - 299 3 units Greater than 299 Call MD for hyperglycemia management instructions Do NOT hold for NPO status. Timestamps Action Dose Route / Site Other Information 05/25/19 160 Given 2 Units subcutaneous Left Lower Abdomen Performed by: Lindsay Negron RN oxyCODONE (ROXICODONE) tablet 5 mg [[id number]] Ordering Provider: Suzie Wu MD Status: Dispensed Ordered On: 05/26/19 0530 Start: 05/26/19 0545 Dose (Remaining/Total): 5 mg (--/--) Route: oral Frequency: Every 4 hours Rate/Duration: -- / -- Timestamps Action Dose Route Other Information 05/27/19 0618 Given 5 mg oral Performed by: Denisa Galdamez RN metoprolol (LOPRESSOR) injection 5 mg [[id number]] Ordering Provider: Ryann Ribeiro MD Status: Completed (Past End Date/Time) Ordered On: 05/27/19 0410 Starts/Ends: 05/27/19 044 - 05/27/19 05 Dose (Remaining/Total): 5 mg (0/1) Route: intravenous Frequency: Once Rate/Duration: -- / 1 Minutes Line Med Link Info Comment Peripheral IV 05/26/19 20 G Left Antecubital 05/27/19 05 by Denisa Galdamez RN -- Timestamps Action Dose / Duration Route Other Information 05/27/19524 Given 5 mg 1 Minutes intravenous Performed by: Denisa Galdamez RN * [facility] Note - Tami Britton LCSW - 05/27/2019 9:57 AM CDT Images from the original note were not included. Patient Information: Comprehensive Nursing Documentation Attending Provider: Kaveh Charles MD Allergies: Prasanth Inhibitors, Citalopram, Lisinopril Isolation: None Infection: None Code Status: FULL Ht: 157.5 cm (5' 2 ) Wt: 90.7 kg (200 lb) Admission Cmt: None Principal Problem: Open fracture of left distal femur ([facility]) [S72.402B] More... Elopement Risk Date/Time Elopement Risk User 05/22/19 0651 No risk [facility] 05/22/19 0500 No risk [facility] Intake/Output 05/24/19 0700 - 05/25/19 0659 05/25/19 0700 - 05/26/19 0659 05/26/19 0700 - 05/27/19 0659 Total Total 1495-7915 7785-2211 1933-6282 Total Intake (ml) 20 3050 -- 500 -- 500 Output (ml) 700 930 400 126 612 0649 Net (ml) -680 2120 -400 175 -475 -700 Patient Lines/Drains/Airways Status Active Airway / Central venous catheter / Drain / Epidural cathether / Intraosseous line / Peripherally inserted central catheter / Peripheral intravenous line / Arterial line Name: Placement date: Placement time: Site: Days: Peripheral IV 05/26/19 20 G Left Antecubital 05/26/19 0800 Antecubital 1 Patient Lines/Drains/Airways Status Active Wound / Pressure ulcer / Roy / Negative Pressure Wound None Mejia Fall Risk Most Recent Value Auto Low/High - if selected proceed to interventions High risk-per unit/hospital protocol ............filed at 05/27/2019 0820 History of Falling 25 ............filed at 05/27/2019 0820 Secondary Diagnosis 15 ............filed at 05/27/2019 0820 Ambulatory Aids 15 ............filed at 05/27/2019 0820 Intravenous Therapy/Heparin/Saline Lock 20 ............filed at 05/27/2019 0820 Gait/Transferring 10 ............filed at 05/27/2019 0820 Mental Status 0 ............filed at 05/27/2019 0820 Mejia Fall Risk Score 50 ............filed at 05/27/2019 0820 Vital Signs 05/25 07 - 05/26 0659 05/26 07 - 05/26 0957 Most Recent Temp (??C) 36.8 - 37 36.6 36.6 (97.9) Pulse 70 - 153 122 - 127 122 Resp 16 - 20 16 16 SpO2 (%) 92 - 97 92 92 BP 107/77 - 142/89 98/65 98/65 MAP (mmHg) 80 - 101 71 71 Non Violent Restraint Most Recent Value Restraint Alternative Less Restrictive Alternative Comfort Measures filed at 05/26/2019 2210 Restraint Reason Restraint Type (NV) Every 2 Hours Default Flowsheet Data (most recent) Endurance Tests No documentation. Nursing Nutrition Feeding Level of Assistance 05/25 1909 Able to feed self 05/24 1914 Able to feed self Nursing Mobility Activity 05/26 0820 Resting in bed 05/26 0620 Resting in bed 05/26 0529 Sleeping 05/25 2338 Resting in bed 05/25 2314 Resting in bed 05/25 2209 Resting in bed 05/25 2137 Resting in bed 05/25 2058 Resting in bed 03/12 1910 Resting in bed 05/25 1541 Resting in bed 05/25 1149 Chair 05/25 1113 Chair 05/25 0613 Resting in bed 05/25 0512 Resting in bed 05/25 0430 Resting in bed 05/25 0356 Resting in bed 05/25 0224 Resting in bed 05/25 0128 Resting in bed 05/25 0023 Resting in bed 05/24 2319 Resting in bed 05/24 2248 Resting in bed 05/24 2229 Resting in bed 05/24 2105 Resting in bed 05/24 1925 Resting in bed 05/24 1915 Resting in bed 05/24 1830 Resting in bed 05/24 1804 Resting in bed 05/24 1721 Resting in bed 05/24 0900 Resting in bed 05/24 0800 Resting in bed 05/24 0700 Sleeping 05/24 0600 Resting in bed 05/24 0300 Sleeping 05/24 0000 Resting in bed 05/23 2100 Resting in bed 05/23 1805 Resting in bed 05/23 1700 Resting in bed 05/23 1530 Resting in bed 05/23 1425 Resting in bed 05/23 1340 Resting in bed 05/23 1120 Resting in bed 05/23 1030 Resting in bed Level of Assistance 05/25 1910 Moderate assist, patient does 50-74% 05/24 1914 Moderate assist, patient does 50-74% Repositioned 05/26 0820 Turns self 05/25 1910 Turns self 05/24 2248 Turns self 05/24 1915 Turns self 05/24 0700 Turns self 05/24 0600 Turns self 05/24 0300 Turns self 05/24 0000 Turns self 05/23 2100 Turns self 05/23 1805 Turns self 05/23 1700 Turns self 05/23 1530 Turns self 05/23 1425 Turns self 05/23 1340 Turns self 05/23 1120 Turns self 05/23 1030 Turns self Positioning Frequency 05/26 0820 Able to turn self 05/25 1910 Able to turn self 05/24 2248 Able to turn self 05/24 1925 Able to turn self 05/24 1915 Able to turn self 05/24 0700 Able to turn self 05/24 0600 Able to turn self 05/24 0300 Able to turn self 05/24 0000 Able to turn self 05/23 2100 Able to turn self 05/23 1805 Able to turn self 05/23 1700 Able to turn self 05/23 1530 Able to turn self 05/23 1425 Able to turn self 05/23 1340 Able to turn self 05/23 1120 Able to turn self 05/23 1030 Able to turn self Head of Bed Elevated 05/25 1910 HOB 30 05/24 1915 HOB 30 05/24 1500 HOB 30 05/24 1430 HOB 30 05/24 1407 HOB 30 05/24 1405 HOB 30 05/24 0700 Self regulated 05/24 0600 Self regulated 05/24 0300 Self regulated 05/24 0000 Self regulated 05/23 2100 Self regulated 05/23 1805 Self regulated 05/23 1700 Self regulated 05/23 1530 Self regulated 05/23 1425 Self regulated 05/23 1340 Self regulated 05/23 1120 Self regulated 05/23 1030 Self regulated Heels/Feet 05/25 191 Heels elevated off bed 05/24 1915 Heels elevated off bed;Foot of bed elevated 05/23 2100 Heels elevated off bed Range of Motion 05/25 1910 Active;Right arm;Left arm;Right leg 05/23 2100 Active;Right arm;Left arm;Left leg Type of Device 05/26 0820 Mechanical compression 05/25 191 Mechanical compression 05/24 191 Mechanical compression 05/24 1700 Mechanical compression 05/24 1630 Mechanical compression 05/24 1600 Mechanical compression 05/24 1505 Mechanical compression 05/24 1500 Mechanical compression 05/24 1430 Mechanical compression 05/24 1407 Mechanical compression 05/24 0700 Mechanical compression 05/23 2100 Mechanical compression Mechanical Compression Site 05/26 0820 Right lower extremity 05/25 191 Bilateral 05/24 1915 Bilateral 05/24 1407 Bilateral 05/24 0700 Bilateral 05/23 2100 Bilateral Mechanical Compression Type 05/26 0820 IPC/SCD 05/25 1910 IPC/SCD 05/24 1915 IPC/SCD 05/24 1407 IPC/SCD 05/24 0700 IPC/SCD 05/23 2100 IPC/SCD Mechanical Compression Status 05/26 0820 Off 05/25 1910 On 05/24 1915 On 05/24 1407 On 05/24 0700 Off 05/23 2100 On * Plan of Care - Kendy Nicole, ARMANI - 05/27/2019 8:36 AM CDT Problem: Health Behavior: Goal: Understanding [...] management regimen will improve Outcome: Progressing Problem: Sensory: Goal: Ability to identify factors that increase the pain will improve Outcome: Progressing Goal: Pain level will decrease Outcome: Progressing Goals: Clinical Goals for the Shift: pain control; OOB; therapy; IS Summary: Patient is progressing towards all goals. * Plan of Care - Denisa Galdamez RN - 05/27/2019 2:08 AM CDT Goals: Clinical Goals for the Shift: pain control, npo for procedure Problem: Health Behavior: Goal: Understanding of discharge [...] management regimen will improve Outcome: Progressing Problem: Sensory: Goal: Ability to identify factors that increase the pain will improve Outcome: Progressing Goal: Pain level will decrease Outcome: Progressing * Plan of Garcia - Gen Oleary RN - 05/26/2019 6:39 PM CDT Goals: Clinical Goals for the Shift: pain control, npo for procedure Summary: Pt OOBTC w/ therapy, back to bed x2 assist. Good UOP Gen Oelary RN Problem: Health Behavior: Goal: Understanding of discharge [...] management regimen will improve Outcome: Progressing Problem: Sensory: Goal: Ability to identify factors that increase the pain will improve Outcome: Progressing Goal: Pain level will decrease Outcome: Progressing * Provider Query - Mary Umana - 05/26/2019 2:10 PM CDT Please clarify the condition you are evaluating, treating or monitoring and document in the medicalrecord and the form below. Indicate Present on Admission status. ___x_ Acute blood loss anemia ____ Precipitous drop in Hemoglobin or Hematocrit ____ Findings clinically insignificant ____ Other (specify below) ____ Clinically unable to determine Clinical Indicators/Treatments: Ref. Range 05/21/2019 19:43 05/22/2019 23:17 05/23/2019 22:20 05/24/2019 22:08 05/25/2019 14:19 05/25/2019 22:42 Hct Latest Ref Range: 35.6 - 45.5 % 36.7 30.3 (L) 28.1 (L) 28.7 (L) 30.5 (L) 28.7 (L) Ref. Range 05/25/2019 13:29 05/25/2019 13:51 Hct, POC Latest Ref Range: 36.3 - 45.3 % 19.0 (L) 26.0 (L) Pt s/p Left total knee arthroplasty, with distal femoral replacement on 05/24 (No EBL per anesthesia) 1u pPRBCs transfused, labs monitored Provider Response: She has a large procedure done to LLE on 05/24. Normal blood loss expected. Use of terms such as likely, suspected, possible, or probable (associated with a specific diagnosisthat is being evaluated, monitored, or treated as if it exists) are acceptable and can be coded in the inpatient setting when documented at the time of discharge. This documentation will become part of the patient's medical record. Thank you, Mary Umana RN, MSN, [facility] [phone] * Plan of Care - Moriah Hall RN - 05/26/2019 1:31 AM CDT Problem: Health Behavior: Goal: Understanding [...] management regimen will improve Outcome: Progressing Problem: Sensory: Goal: Ability to identify factors that increase the pain will improve Outcome: Progressing Goal: Pain level will decrease Outcome: Progressing Goals: Clinical Goals for the Shift: pain control, npo for procedure Summary: * Op Note - Kaveh Charles MD - 05/25/2019 12:02 PM CDT OPERATIVE REPORT DATE OF SURGERY: 05/25/19 ATTENDING SURGEON: Kaveh Charles MD ASSISTANTS: 1. MARNI Jiang 2. Bella Merino PA-C ANESTHESIA: General PREOPERATIVE DIAGNOSIS: Open displaced left supracondular femur fracture POSTOPERATIVE DIAGNOSIS: Same as above PROCEDURE: Left total knee arthroplasty, with distal femoral replacement IMPLANTS: 1. Albert segmental system distal femoral component, size B 2. Albetr segmental system trabecular metal stem collar, 35 mm OD 3. Albert segmental fluted stem extension, 13 x 130mm (for the femur) 5. Albert segmental system articular surface, 14 mm 6. Albert NexGen rotating hinged knee tibial component, size 2 INDICATIONS: This patient sustained an open left supracondylar femur fracture on Thursday, which underwent urgent debridement. It was deemed not amenable to primary fixation, and is therefore indicated for distalfemoral replacement. Risks of surgery, including bleeding, infection, injury to nearby neurovascular structures, venous thromboembolism, and stiffness, were discussed preoperatively. The patient elects to proceed. OPERATIVE FINDINGS: Displaced supracondylar femur fracture with intraarticular extension. DESCRIPTION OF PROCEDURE: The patient was met in the preoperative holding area where the correct surgical site and procedure were confirmed. She was taken back to the operating room and placed supine on the operating room table. SCDs were placed on the nonoperative lower extremity. Anesthesia was established. All bony prominences were padded. A non-sterile tourniquet was placed on the left upper thigh. Prophylactic antibio tics were given. The left lower extremity was prepped and draped in the usual sterile fashion. A time out was performed, confirming the surgical site and procedure. An Esmarch was utilized to exsanguinate the leg and the tourniquet was inflated. First, the traumatic wound, which was located on the anteromedial aspect of the knee, was re-opened. The wound tracked down through the VMO, straight to the fracture. The wound was copiously irrigated with saline. Next, a separate anterior midline incision was made. Skin and subcutaneous tissue was incised sharply down to the extensor mechanism. A medial parapatellar arthrotomy was performed, with a quadricepssnip. The supracondylar femur fracture was identified immediately. A complete synovectomy was performed. Attention then was placed on removing the distal femoral segment. The distal femoral segment was dissected out subperiosteally and removed without difficulty. The tourniquet was deflated to confirm no vascular injury. Next, attention was placed on the tibia. A primary tibial cut was made. The proximal tibial preparation was completed with a keel punch. A trial tibial component was placed. Next, the femoral canal was reamed sequentially to a stable fit. The distal femur was reconstructed according to the length of resection measured previously. A trial femoral component was placed. A trial liner was placed and secured with a trial post. The knee was reduced. Stability was confirmed in ex tension, mid-flexion, and 90 degrees of flexion. Patellar tracking was found to be excellent. Leg length religion was confirmed. The rotation was marked. The trial components were removed. The knee was copiously irrigated with normal saline and dried in preparation for cementation. Attention was placed on placing the tibial component. A cement plug was placed distally. The canal was filled retrograde with cement and the tibial component was cemented into place. Next, attention was placed on the femur. A plug was placed proximally and the femoral canal was filled retrograde with cement and pressurized. The final femoral component was cemented into place. Once this hardened, a trial post and rotating platform insert was inserted to confirm length and stability. The trials were removed and the final insert was placed. The knee was reduced. The knee was copiously irrigated with normal saline. The arthrotomy was closed with #1 Vicryl. The subcutaneous layer was closed with2-0 Prolene. The skin was closed with theodore. The traumatic wound was closed in layers, with 2-0 Monocryl and 2-0 Nylon. A sterile dressing was placed. The patient was awakened from anesthesia and taken to recovery in stable condition. POSTOPERATIVE PLAN: 1. Weight bearing as tolerated, left lower extremity 2. DVT prophylaxis - Aspirin and Active Care pumps ESTIMATED BLOOD LOSS: Per Anesthesia INTRAOPERATIVE FLUIDS: Per Anesthesia SPONGE/INSTRUMENT/NEEDLE COUNTS: Correct CONDITION ON DISCHARGE: Stable COMPLICATIONS: None STATEMENT OF ATTENDING SURGEON'S PRESENCE: The attending surgeon, Dr. Kaveh Charles, performed the entire procedure except skin closure. Sheremained immediately available during skin closure. Kaveh Charles M.D. Analytics Architect, Orthopaedic Surgery * Plan of Care - Neetu Mejia, ARMANI - 05/25/2019 7:49 AM CDT Per Notes: patient had soft BP's yesterday and elevated HR overnight, however, has not been symptomatic. Team plans to take patient to the OR today for fracture set. Patient not stable for discharge today ADD 05/27/2019 PT/OT to work with patient s/p OR to assist with discharge planning Will follow up CM will continue to follow for needs A Roberto RM [phone] For evening case management needs please contact the manager of radiology at [phone]. For weekend and holiday needs please call [phone]. * Plan of Care - Holly Leonard RN - 05/25/2019 7:13 AM CDT Problem: Health Behavior: Goal: Understanding [...] management regimen will improve Outcome: Progressing Problem: Sensory: Goal: Ability to identify factors that increase the pain will improve Outcome: Progressing Goal: Pain level will decrease Outcome: Progressing Goals: Clinical Goals for the Shift: pain control, npo for procedure Summary: * Plan of Care - Mary Lamar RN - 05/24/2019 10:38 PM CDT Goals: Clinical Goals for the Shift: Pain control, NPO midnight Summary: Problem: Health Behavior: Goal: Understanding of [...] management regimen will improve Outcome: Progressing Problem: Sensory: Goal: Ability to identify factors that increase the pain will improve Outcome: Progressing Goal: Pain level will decrease Outcome: Progressing * Plan of Garcia - Holly Leonard RN - 05/24/2019 10:53 AM CDT Problem: Health Behavior: Goal: Understanding [...] management regimen will improve Outcome: Progressing Problem: Sensory: Goal: Ability to identify factors that increase the pain will improve Outcome: Progressing Goal: Pain level will decrease Outcome: Progressing Goals: Clinical Goals for the Shift: pain control Summary: * Plan of Garcia - Miranda Marks RN - 05/24/2019 12:19 AM CDT Problem: Health Behavior: Goal: Understanding of discharge needs will improve Outcome: Progressing Problem: Lack of Knowledge: Goal: Ability to state ways to decrease the risk of falls will improve Outcome: Progressing Problem: Safety: Goal: Will remain free from falls Outcome: Progressing Problem: Lack of Knowledge: Goal: Ability to develop a pain control plan will improve Outcome: Progressing Goals: Clinical Goals for the Shift: Adequate pain control, safety * Hospital Course - Ryann Noble NP - 05/23/2019 9:01 AM CDT Patient was admitted from the ER s/p same level fall. Radiology revealed left commuted distalfemur fracture. Admitted to S and taken to the OR for an I&D of the left femur on 05/22/19. Transferred to Dr. Charles's service * Plan of Care - Holly Leonard RN - 05/23/2019 7:24 AM CDT Problem: Health Behavior: Goal: Understanding [...] management regimen will improve Outcome: Progressing Problem: Sensory: Goal: Ability to identify factors that increase the pain will improve Outcome: Progressing Goal: Pain level will decrease Outcome: Progressing Goals: Clinical Goals for the Shift: pain control Summary: * Plan of Care - Mary Lamar RN - 05/23/2019 1:49 AM CDT Goals: Clinical Goals for the Shift: Pain control, VSS, and monitor INR Summary: Problem: Health Behavior: Goal: Understanding of [...] management regimen will improve Outcome: Progressing Problem: Sensory: Goal: Ability to identify factors that increase the pain will improve Outcome: Progressing Goal: Pain level will decrease Outcome: Progressing * Plan of Garcia - Francisca Lipscomb RN - 05/22/2019 3:25 PM CDT Problem: Health Behavior: Goal: Understanding of [...] management regimen will improve Outcome: Progressing Problem: Sensory: Goal: Ability to identify factors that increase the pain will improve Outcome: Progressing Goal: Pain level will decrease Outcome: Progressing Goals: Clinical Goals for the Shift: Pain control, VSS, and monitor INR Summary: * Perioperative Nursing Note - Aurelia Pederson RN - 05/22/2019 8:45 AM CDT No yumiko hugger used. Warm [place] was used * Op Note - Cuba Castro MD - 05/22/2019 8:13 AM CDT Date of Surgery: .05/22/19 Pre-operative Diagnosis: 1. Comminuted open left distal femur fracture, type 1 Post-operative diagnosis: 1. Same as above Operative Procedure: 1. Irrigation and excisional debridement of nonviable subcutaneous tissue and bone from left distal femur fracture Attending Surgeon: Cuba Castro MD, M.Sc. Ferry Boat Captain: 1. Lina Elizabeth MD Anesthesia: General Blood loss: No blood loss documented. Tourniquet Time: * Missing tourniquet times found for documented tourniquets in lo * Findings: Comminuted open left distal femur intra-articular fracture, type 1 Specimen: No specimens collected during this procedure. Complications: None Condition: The patient was transferred to the PACU in good condition. Indications: This is a very pleasant 79-year-old female with a history of a fall resulting in a left distal femur fracture. She has evidence of a comminuted left distal femur fracture, with a poke hole through the anterior skin. We discussed with her treatment options, I would recommend likely a distal femoral replacement given her age, poor bone quality and the comminuted nature of the fracture.This will be done by 1 of our arthroplasty specialist this week. I have discussed the case with my partners, they would prefer that we not place an external fixer, but instead just proceed with washout of the leg. Risks, benefits alternatives were discussed, informed consent was obtained. The risks discussed included bleeding, infection, damage to blood vessels/nerves/tendons/bone, chronic pain, stiffness, and need for additional surgery. The patient had a good understanding of this and elected to proceed. Informed consent was obtained. Procedure: Site Marking: The operative site was marked in the holding area. The consent was verified and all questions were answered. Time Out Procedure: A preprocedural pause was conducted to verify correct patient side, site, procedure, allergies, antibiotics and post-operative plan. Operative Course: Informed consent was obtained prior to the surgery and the patient was brought to the operating room. The patient was positioned supine on the OR table . Sequential compression devices were applied to the right lower extremity as indicated. Anesthesia was induced as noted above. A preprocedural pause was conducted to verify correct patient side, site and procedure as well as confirm the wound class, and presence of mechanical DVT prophylaxis. The left leg was then sterilely prepped and draped in the usual sterile fashion, and a nonsterile tourniquet was placed high above the knee. Appropriatepreoperative antibiotics were given as indicated, 2 g Ancef. We began by extending the incision proximally distally, curving in a way to bring it closer back tomidline to facilitate and easier approach for the distal femoral replacement. Sharp dissection was carried down through skin, a combination of blunt sharp dissection was utilized elevate full-thickness skin flaps. There was an evidence of a small arterial bleed resulting from a laceration of a small lie detector operator secondary to her fracture. This was cauterized. We then evacuated significant hematoma,and removed segments of nonviable comminuted fracture fragments that were presumably contaminated from her open fracture. We curetted the distal femur to again remove any potentially contaminated cancellous bone. We extended the muscle split slightly proximally to facilitate aggressive dissection and debridement. Once the wound was clean, we then irrigated with an additional 3 L of sterile saline. The wound was then closed in layers utilizing interrupted 2 0 Monocryl suture followed by theodore.A sterile dressing consisting of Xeroform, 4x4s, ABD and a well-padded posterior slab splint was then applied. The patient was woken taken to PACU in hemodynamically stable condition. Drains: Active and Removed None Counts: All needle, sponge, and instrument counts were correct at the end of the case. Attending participation: I was present and scrubbed for all crtical portions of the case including the debridement, I was immediately available for the closure and splint application. Post-operative plan The intraoperative findings were discussed in detail with patient's family at the conclusion of procedure. She will be admitted to the floor. We will plan on distal femoral arthroplasty by Dr. Charles at some point later this week. We will resume chemical DVT prophylaxis starting tomorrow. She should be nonweightbearing of the left lower extremity * Brief Op Note - Lina Elizabeth MD PhD - 05/22/2019 8:13 AM CDT Operative Progress Note Surgical Team: Surgeon(s) and Role: * Cuba Castro MD - Primary * Lina Elizabeth MD PhD - Resident - Assisting Anesthesiologist: Daryn Jaramillo MD TRIPLE AIR VALVE TESTER: Mehul Dias CRNA Student Nurse Pastry Finisher: Daya Baldwin RN Online Marketing Manager: Aurelia Pederson RN Scrub: [facility] [place] DATE OF SURGERY : 05/22/2019 Preoperative Diagnosis: Pre-op Diagnosis * Other type I or II open fracture of distal end of left femur, initial encounter ([facility]) [U17.054Y] Postoperative Diagnosis: Post-op Diagnosis * Other type I or II open fracture of distal end of left femur, initial encounter ([facility]) [V16.084D] Procedure(s): Procedure(s) (LRB): INCISION AND DRAINAGE - FEMUR (Left) Operative Findings: Left type 1 open distal femur fracture Estimated Blood Loss: Please refer to anesthesia note Intraoperative Fluids: Please refer to anesthesia note Specimens: No specimen collected in procedure Implants: Nothing was implanted during the procedure Blood/Blood Products Transfused: None Complications: None Condition on Discharge from the operating room was stable Lina Elizabeth MD PhD Date: 05/22/2019 Time: 9:17 AM TEACHING ATTESTATION : I was present and directly participated in the entire procedure (including opening and closing). Cosigned by Cuba Castro MD at 06/09/2019 7:51 AM CDT * Plan of Care - Mary Lamar RN - 05/22/2019 5:43 AM CDT Goals: Clinical Goals for the Shift: Pain control, VSS, and monitor INR Summary: Problem: Health Behavior: Goal: Understanding of [...] management regimen will improve Outcome: Progressing Problem: Sensory: Goal: Ability to identify factors that increase the pain will improve Outcome: Progressing Goal: Pain level will decrease Outcome: Progressing * ED Procedure Note - Berny Carrera MD - 05/21/2019 7:40 PM RENTAL CLERK Associated Order(s): ECG 12 lead Procedure ECG 12 lead Date/Time: 05/21/2019 7:40 PM Performed by: Berny Carrera MD Authorized by: Alessandro Malone MD Rate: ECG rate: 127 ECG rate assessment: tachycardic Rhythm: Rhythm: atrial fibrillation Ectopy: Ectopy: none QRS: QRS axis: Normal QRS intervals: Normal Conduction: Conduction: abnormal ST segments: ST segments: Non-specific T waves: T waves: non-specific Previous ECG: Previous ECG: Unavailable Interpretation: Interpretation: abnormal Recommended Follow-up: Recommended follow up: further workup in the ED Berny Carrera MD 05/21/191939 AL CLERK * ED Pre-Arrival Note - Lina Wyatt RN - 05/21/2019 4:17 PM RENTAL CLERK Pre-Arrival Note Pt accepted as Level [address] Elena, report called by RACHID Flores. Pt had a ground level fall today. - LOC. Head CT negative. Pt has a comminuted L femur fracture into the knee joint with dislocationof the knee. PMS intact. VSS at time of report. Lina Wyatt RN AL CLERK documented in this encounter Plan of Treatment Not on file documented as of this encounter Procedures Procedure Name Priority Date/Time Associated Diagnosis Comments POCT GLUCOSE DEVICE Routine 05/27/2019 1 1:49 AM CDT POCT GLUCOSE DEVICE Routine 05/27/2019 7 :30 AM CDT POCT GLUCOSE DEVICE Routine 05/27/2019 4 :35 AM CDT POCT GLUCOSE DEVICE Routine 05/27/2019 1 :07 AM CDT POCT GLUCOSE DEVICE Routine 05/26/2019 9 :55 PM CDT DIFFERENTIAL AUTO Routine 05/26/2019 9:5 2 PM CDT CBC WITH AUTO DIFFERENTIAL Routine 05/26/2019 9:52 PM CDT PROTIME-INR Routine 05/26/2019 9:52 PM CDT BASIC METABOLIC PANEL Routine 05/26/2019 9:52 PM CDT POCT GLUCOSE DEVICE Routine 05/26/2019 3 :46 PM CDT POCT GLUCOSE DEVICE Routine 05/26/2019 1 1:47 AM CDT POCT GLUCOSE DEVICE Routine 05/26/2019 9 :25 AM CDT POCT GLUCOSE DEVICE Routine 05/26/2019 6 :08 AM CDT POCT GLUCOSE DEVICE Routine 05/25/2019 1 1:04 PM CDT DIFFERENTIAL AUTO Routine 05/25/2019 10: 42 PM CDT CBC WITH AUTO DIFFERENTIAL Routine 05/25/2019 10:42 PM CDT PROTIME-INR Routine 05/25/2019 10:42 PM CDT POCT GLUCOSE DEVICE Routine 05/25/2019 9 :08 PM CDT BASIC METABOLIC PANEL Routine 05/25/2019 8:30 PM CDT POCT GLUCOSE DEVICE Routine 05/25/2019 4 :57 PM CDT POCT GLUCOSE DEVICE Routine 05/25/2019 3 :05 PM CDT XR KNEE LEFT 1 OR 2 VIEWS STAT 05/25/2019 2:51 PM CDT PROTIME-INR STAT 05/25/2019 2:19 PM CDT CBC WITHOUT DIFFERENTIAL STAT 05/25/2019 2:19 PM CDT BASIC METABOLIC PANEL STAT 05/25/2019 2:19 PM CDT POC BLOOD GAS AND CHEMISTRIES, ARTERIAL Routine 05/25/2019 1:51 PM CDT TRANSFUSE RED BLOOD CELLS Timed 05/25/2019 1:36 PM CDT POC BLOOD GAS AND CHEMISTRIES, VENOUS Routine 05/25/2019 1:29 PM CDT POCT GLUCOSE DEVICE Routine 05/25/2019 1 :00 PM CDT FEMUR REPLACEMENT - DISTAL 05/25/2019 11:19 AM CDT Closed displaced comminuted fracture of shaft of left femur, initial encounter ([facility]) Special Needs [place] POCT GLUCOSE DEVICE Routine 05/25/2019 1 0:41 AM CDT TYPE AND SCREEN STAT 05/25/2019 10:01 AM CDT PREPARE RBC STAT 05/25/2019 9:59 AM CDT POCT GLUCOSE DEVICE Routine 05/25/2019 7 :54 AM CDT URINALYSIS AND REFLEX TO MICROSCOPIC AND CULTURE STAT 05/25/2019 6:11 AM CDT URINALYSIS, MICROSCOPIC ONLY STAT 05/25/2019 6:11 AM CDT POCT GLUCOSE DEVICE Routine 05/25/2019 3:34 AM CDT POCT GLUCOSE DEVICE Routine 05/24/2019 1 1:32 PM CDT DIFFERENTIAL AUTO Routine 05/24/2019 10: 08 PM CDT CBC WITH AUTO DIFFERENTIAL Routine 05/24/2019 10:08 PM CDT PROTIME-INR Routine 05/24/2019 10:08 PM CDT MAGNESIUM Routine 05/24/2019 10:08 PM CDT BASIC METABOLIC PANEL Routine 05/24/2019 10:08 PM CDT POCT GLUCOSE DEVICE Routine 05/24/2019 8 :59 PM CDT POCT GLUCOSE DEVICE Routine 05/24/2019 3 :28 PM CDT POCT GLUCOSE DEVICE Routine 05/24/2019 1 1:16 AM CDT POCT GLUCOSE DEVICE Routine 05/24/2019 7 :54 AM CDT POCT GLUCOSE DEVICE Routine 05/24/2019 4 :54 AM CDT POCT GLUCOSE DEVICE Routine 05/24/2019 1 2:43 AM CDT DIFFERENTIAL AUTO Routine 05/23/2019 10: 20 PM CDT CBC WITH AUTO DIFFERENTIAL Routine 05/23/2019 10:20 PM CDT BASIC METABOLIC PANEL Routine 05/23/2019 10:20 PM CDT POCT GLUCOSE DEVICE Routine 05/23/2019 9 :43 PM CDT POCT GLUCOSE DEVICE Routine 05/23/2019 4 :35 PM CDT POCT GLUCOSE DEVICE Routine 05/23/2019 1 1:22 AM CDT POCT GLUCOSE DEVICE Routine 05/23/2019 8 :21 AM CDT POCT GLUCOSE DEVICE Routine 05/23/2019 4 :42 AM CDT POCT GLUCOSE DEVICE Routine 05/23/2019 1 2:12 AM CDT DIFFERENTIAL AUTO Routine 05/22/2019 11: 17 PM CDT CBC WITH AUTO DIFFERENTIAL Routine 05/22/2019 11:17 PM CDT BASIC METABOLIC PANEL Routine 05/22/2019 11:17 PM CDT POCT GLUCOSE DEVICE Routine 05/22/2019 9 :23 PM CDT POCT GLUCOSE DEVICE Routine 05/22/2019 5 :18 PM CDT POCT GLUCOSE DEVICE Routine 05/22/2019 1 1:21 AM CDT POCT GLUCOSE DEVICE Routine 05/22/2019 1 0:30 AM CDT POCT GLUCOSE DEVICE Routine 05/22/2019 8 :29 AM CDT INCISION AND DRAINAGE - FEMUR 05/22/2019 7:34 AM CDT Other type I or II open fracture of distal end of left femur, initial encounter ([facility]) POCT GLUCOSE DEVICE Routine 05/22/2019 6 :39 AM CDT POCT GLUCOSE DEVICE Routine 05/22/2019 4 :59 AM CDT PROTIME-INR STAT 05/22/2019 4:57 AM CDT POCT GLUCOSE DEVICE Routine 05/22/2019 1 2:39 AM RENTAL CLERK B CHECK SAMPLE STAT 05/21/2019 11:48 PM RENTAL CLERK POCT GLUCOSE DEVICE Routine 05/21/2019 1 1:[address] KNEE LEFT WO CONTRAST ED 05/21/2019 10:21 PM RENTAL CLERK NEURO CT MR OUTSIDE CONSULT ED 05/21/2019 8:[address] CERVICAL SPINE WO CONTRAST ED 05/21/2019 8:29 PM RENTAL CLERK XR KNEE LEFT 1 OR 2 VIEWS ED 05/21/2019 8:26 PM RENTAL CLERK XR PELVIS 1 OR 2 VIEWS ED 05/21/2019 8:26 PM RENTAL CLERK XR FEMUR LEFT 2 OR MORE VIEWS ED 05/21/2019 8:25 PM RENTAL CLERK XR CHEST 1 VIEW ED 05/21/2019 8:24 PM RENTAL CLERK DIFFERENTIAL AUTO STAT 05/21/2019 7:4 3 PM RENTAL CLERK CBC WITH AUTO DIFFERENTIAL STAT 05/21/2019 7:43 PM RENTAL CLERK APTT STAT 05/21/2019 7:43 PM RENTAL CLERK PROTIME-INR STAT 05/21/2019 7:43 PM RENTAL CLERK TYPE AND SCREEN STAT 05/21/2019 7:43 PM RENTAL CLERK COMPREHENSIVE METABOLIC PANEL STAT 05/21/2019 7:43 PM RENTAL CLERK ECG 12-LEAD STAT 05/21/2019 7:40 PM RENTAL CLERK XR TRANSFER OF OUTSIDE FILMS ED 05/21/2019 7:33 PM RENTAL CLERK POCT GLUCOSE DEVICE Routine 05/21/2019 7 :27 PM RENTAL CLERK documented in this encounter Results * (ABNORMAL) POCT glucose (05/27/2019 11:49 AM CDT) Glucose, POC 213(H) 70 - 199 mg/dL [facility] Blood specimen (specimen) 05/27/2019 11:49 AM CDT 05/27/2019 11:49 AM CDT Kaveh Charles MD LAB POCT ORDERABLES - [place] CE Final Result Performing Organization Address [facility] de Phone Number [facility] Department [place] [address] * POCT glucose (05/27/2019 7:30 AM CDT) Glucose, POC 176 70 - 199 mg/dL [facility] Blood specimen (specimen) 05/27/2019 7:30 AM CDT 05/27/2019 7:30 AM CDT us Kaveh Charles MD LAB POCT ORDERABLES - [place] CE Final Result Performing Organization Address [facility] Co de Phone Number [facility] [place] [address] * POCT glucose (05/27/2019 4:35 AM CDT) Glucose, POC 174 70 - 199 mg/dL [facility] Blood specimen (specimen) 05/27/2019 4:35 AM CDT 05/27/2019 4:35 AM CDT Kaveh Charles MD LAB POCT ORDERABLES - [place] CE Final Result Performing Organization Address [facility] Co de Phone Number [facility] [place] [address] * POCT glucose (05/27/2019 1:07 AM CDT) Glucose, POC 170 70 - 199 mg/dL [facility] Blood specimen (specimen) 05/27/2019 1:07 AM CDT 05/27/2019 1:07 AM CDT Steve Garcia MD LAB POCT ORDERABLES - DEV ICE Final Result Performing Organization Address [facility] Co de Phone Number [facility] [place] [address] * (ABNORMAL) POCT glucose (05/26/2019 9:55 PM CDT) [facility] Glucose, POC 235(H) 70 - 199 mg/dL [facility] Blood specimen (specimen) 05/26/2019 9:55 PM CDT 05/26/2019 9:55 PM CDT Steve Garcia MD LAB POCT ORDERABLES - DEV ICE Final Result Performing Organization Address [facility] Co de Phone Number [facility] [place] [address] * Differential, auto (05/26/2019 9:52 PM CDT) Neutrophil abs 5.2 1.7 - 6.5 K/cumm [facility] Imm gran abs 0.0 0.0 - 0.1 K/cumm [facility] Lymphocyte abs 1.2 0.8 - 3.3 K/cumm [facility] Monocyte abs 0.6 0.2 - 0.8 K/cumm [facility] Eosinophil abs 0.1 0.0 - 0.5 K/cumm [facility] Basophil abs 0.0 0.0 - 0.1 K/cumm [facility] Neutrophil pct 72.9 % [facility] Comment: Interpretive Data Percent cell count reference ranges are not reported, since discordance with absolute values may lead to misinterpretation of CBC data. Current Interpretive Data was last revised on 2017. Imm gran pct 0.7 % [facility] Comment: Interpretive Data Percent cell count reference ranges are not reported, since discordance with absolute values may lead to misinterpretation of CBC data. Current Interpretive Data was last revised on 2017. Lymphocyte pct 17.4 % [facility] Comment: Interpretive Data Percent cell count reference ranges are not reported, since discordance with absolute values may lead to misinterpretation of CBC data. Current Interpretive Data was last revised on 2017. Monocyte pct 7.9 % [facility] Comment: Interpretive Data Percent cell count reference ranges are not reported, since discordance with absolute values may lead to misinterpretation of CBC data. Current Interpretive Data was last revised on 2017. Eosinophil pct 1.0 % [facility] Comment: Interpretive Data Percent cell count reference ranges are not reported, since discordance with absolute values may lead to misinterpretation of CBC data. Current Interpretive Data was last revised on 2017. Basophil pct 0.1 % [facility] Comment: Interpretive Data Percent cell count reference ranges are not reported, since discordance with absolute values may lead to misinterpretation of CBC data. Current Interpretive Data was last revised on 2017. Blood specimen (specimen) 05/26/2019 9:52 PM CDT 05/26/2019 10:09 PM CDT us Kaveh Charles MD LAB BLOOD ORDERABLES Final Result [facility] Department of Laboratories [place], [place] [id number] * (ABNORMAL) Basic metabolic panel (05/26/2019 9:52 PM CDT) Sodium 134(L) 135 - 145 mmol/L [facility] Potassium, pl 4.2 3.3 - 4.9 mmol/L [facility] Chloride 104 97 - 110 mmol/L [facility] CO2 25 22 - 32 mmol/L [facility] Anion gap 5 2 - 15 mmol/L [facility] BUN 17 8 - 25 mg/dL [facility] Creatinine 0.45(L) 0.60 - 1.10 mg/dL [facility] Glucose 222(H) 70 - 199 mg/dL [facility] Comment: Interpretive Data Fasting glucose >/= 126 [...] 2017. Calcium 8.3(L) 8.5 - 10.3 mg/dL [facility] Blood specimen (specimen) 05/26/2019 9:52 PM CDT 05/26/2019 10:09 PM CDT Kaveh Charles MD LAB BLOOD ORDERABLES Final Result [facility] [place] [address] * (ABNORMAL) CBC with auto differential (05/26/2019 9:52 PM CDT) WBC 7.1 3.8 - 9.9 K/cumm [facility] Hgb 8.9(L) 11.9 - 15.5 g/dL [facility] Hct 27.5(L) 35.6 - 45.5 % [facility] Plt 210 150 - 400 K/cumm [facility] MPV 10.0 9.1 - 12.3 fL [facility] RBC 2.80(L) 3.90 - 5.20 M/cumm [facility] MCV 98.2(H) 81.3 - 96.4 fL [facility] MCH 31.8 27.1 - 33.3 pg [facility] MCHC 32.4 32.3 - 35.7 g/dL [facility] RDW CV 15.2(H) 11.1 - 14.9 % [facility] RDW SD 54.1(H) 35.7 - 48.1 fL [facility] NRBC abs 0.00 0.00 - 0.01 K/cumm [facility] Blood specimen (specimen) 05/26/2019 9:52 PM CDT 05/26/2019 10:09 PM CDT Kaveh Charles MD LAB BLOOD ORDERABLES Final Result Performing Organization Address [facility] de Phone Number [facility] [place] [address] * (ABNORMAL) Protime-INR (05/26/2019 9:52 PM CDT) Pathologist [facility] PT 13.7(H) 8.6 - 13.0 sec [facility] INR 1.3(H) 0.8 - 1.2 [facility] Comment: Interpretive data Oral anticoagulant therapeutic ranges: Venous thromboembolism prophylaxis or treatment: 2.0-3.0 CARDIOLOGY Standard range: 2.0-3.0 High-intensity range: 2.5-3.5 Refer to indication-specific guidelines for appropriate target ranges for prosthetic heart valve replacement. Current interpretive data was last revised on 2019. Blood specimen (specimen) 05/26/2019 9:52 PM CDT 05/26/2019 10:06 PM CDT us Kaveh Charles MD LAB BLOOD ORDERABLES Final Result Performing Organization Address [facility] de Phone Number [facility] [place] [address] * POCT glucose (05/26/2019 3:46 PM CDT) Glucose, POC 188 70 - 199 mg/dL [facility] Blood specimen (specimen) 05/26/2019 3:46 PM CDT 05/26/2019 3:46 PM CDT Kaveh Charles MD LAB POCT ORDERABLES - [place] CE Final Result Performing Organization Address [facility] Co de Phone Number [facility] [place] [place] [address] * (ABNORMAL) POCT glucose (05/26/2019 11:47 AM CDT) Glucose, POC 202(H) 70 - 199 mg/dL [facility] Blood specimen (specimen) 05/26/2019 11:47 AM CDT 05/26/2019 11:47 AM CDT Kaveh Charles MD LAB POCT ORDERABLES - [place] CE Final Result Performing Organization Address [facility] Co de Phone Number [facility] [place] [place] [address] * (ABNORMAL) POCT glucose (05/26/2019 9:25 AM CDT) Glucose, POC 216(H) 70 - 199 mg/dL [facility] Blood specimen (specimen) 05/26/2019 9:25 AM CDT 05/26/2019 9:25 AM CDT us Kaveh Charles MD LAB POCT ORDERABLES - DESTINEE CE Final Result Performing Organization Address City/[facility] [place] [address] * POCT glucose (05/26/2019 6:08 AM CDT) Glucose, POC 160 70 - 199 mg/dL [facility] Blood specimen (specimen) 05/26/2019 6:08 AM CDT 05/26/2019 6:08 AM CDT Kaveh Charles MD LAB POCT ORDERABLES - DESTINEE CE Final Result Performing Organization Address City/[facility] Co de Phone Number [facility] Department [place] [address] * POCT glucose (05/25/2019 11:04 PM CDT) Pathologist [facility] Glucose, POC 174 70 - 199 mg/dL [facility] Blood specimen (specimen) 05/25/2019 11:04 PM CDT 05/25/2019 11:04 PM CDT Kaveh Charles MD LAB POCT ORDERABLES - DESTINEE CE Final Result Performing Organization Address [facility] de Phone Number [facility] [place] [address] * Differential, auto (05/25/2019 10:42 PM CDT) Pathologist [facility] Neutrophil abs 5.4 1.7 - 6.5 K/cumm [facility] Imm gran abs 0.0 0.0 - 0.1 K/cumm [facility] Lymphocyte abs 1.2 0.8 - 3.3 K/cumm [facility] Monocyte abs 0.7 0.2 - 0.8 K/cumm [facility] Eosinophil abs 0.0 0.0 - 0.5 K/cumm [facility] Basophil abs 0.0 0.0 - 0.1 K/cumm [facility] Neutrophil pct 73.2 % [facility] Comment: Interpretive Data Percent cell count reference ranges are not reported, since discordance with absolute values may lead to misinterpretation of CBC data. Current Interpretive Data was last revised on 2017. Imm gran pct 0.4 % [facility] Comment: Interpretive Data Percent cell count reference ranges are not reported, since discordance with absolute values may lead to misinterpretation of CBC data. Current Interpretive Data was last revised on 2017. Lymphocyte pct 15.8 % [facility] Comment: Interpretive Data Percent cell count reference ranges are not reported, since discordance with absolute values may lead to misinterpretation of CBC data. Current Interpretive Data was last revised on 2017. Monocyte pct 9.8 % [facility] Comment: Interpretive Data Percent cell count reference ranges are not reported, since discordance with absolute values may lead to misinterpretation of CBC data. Current Interpretive Data was last revised on 2017. Eosinophil pct 0.4 % [facility] Comment: Interpretive Data Percent cell count reference ranges are not reported, since discordance with absolute values may lead to misinterpretation of CBC data. Current Interpretive Data was last revised on 2017. Basophil pct 0.4 % [facility] Comment: Interpretive Data Percent cell count reference ranges are not reported, since discordance with absolute values may lead to misinterpretation of CBC data. Current Interpretive Data was last revised on 2017. Blood specimen (specimen) 05/25/2019 10:42 PM CDT 05/25/2019 11:36 PM CDT Berny Carrera MD LAB BLOOD ORDERABLES Sri davalos Result [facility] [place] [address] * (ABNORMAL) Protime-INR (05/25/2019 10:42 PM CDT) PT 13.3(H) 8.6 - 13.0 sec [facility] INR 1.2 0.8 - 1.2 [facility] Comment: Interpretive data Oral anticoagulant therapeutic ranges: Venous thromboembolism prophylaxis or treatment: 2.0-3.0 CARDIOLOGY Standard range: 2.0-3.0 High-intensity range: 2.5-3.5 Refer to indication-specific guidelines for appropriate target ranges for prosthetic heart valve replacement. Current interpretive data was last revised on 2019. Blood specimen (specimen) 05/25/2019 10:42 PM CDT 05/25/2019 11:27 PM CDT us Kaveh Charles MD LAB BLOOD ORDERABLES Final Result [facility] [place] [address] * (ABNORMAL) CBC with auto differential (05/25/2019 10:42 PM CDT) [facility] WBC 7.4 3.8 - 9.9 K/cumm [facility] Hgb 9.2(L) 11.9 - 15.5 g/dL [facility] Hct 28.7(L) 35.6 - 45.5 % [facility] Plt 232 150 - 400 K/cumm [facility] MPV 10.4 9.1 - 12.3 fL [facility] RBC 2.95(L) 3.90 - 5.20 M/cumm [facility] MCV 97.3(H) 81.3 - 96.4 fL [facility] MCH 31.2 27.1 - 33.3 pg [facility] MCHC 32.1(L) 32.3 - 35.7 g/dL [facility] RDW CV 15.0(H) 11.1 - 14.9 % [facility] RDW SD 52.3(H) 35.7 - 48.1 fL [facility] NRBC abs 0.00 0.00 - 0.01 K/cumm [facility] Blood specimen (specimen) 05/25/2019 10:42 PM CDT 05/25/2019 11:36 PM CDT us Kaveh Charles MD LAB BLOOD ORDERABLES Final Result [facility] [place] [address] * POCT glucose (05/25/2019 9:08 PM CDT) Pathologist [facility] Glucose, POC 167 70 - 199 mg/dL [facility] Blood specimen (specimen) 05/25/2019 9:08 PM CDT 05/25/2019 9:08 PM CDT Kaveh Charles MD LAB POCT ORDERABLES - DESTINEE CE Final Result Performing Organization Address City/[facility]/ZIP Co de Phone Number [facility] Department [place] [address] * (ABNORMAL) Basic metabolic panel (05/25/2019 8:30 PM CDT) [facility] Sodium 137 135 - 145 mmol/L [facility] Potassium, pl 4.1 3.3 - 4.9 mmol/L [facility] Chloride 104 97 - 110 mmol/L [facility] CO2 29 22 - 32 mmol/L [facility] Anion gap 4 2 - 15 mmol/L [facility] BUN 18 8 - 25 mg/dL [facility] Creatinine 0.62 0.60 - 1.10 mg/dL [facility] Glucose 171 70 - 199 mg/dL [facility] Comment: Interpretive Data Fasting glucose >/= 126 [...] interpretive data was last revised 2017. Calcium 8.1(L) 8.5 - 10.3 mg/dL [facility] Blood specimen (specimen) 05/25/2019 8:30 PM CDT 05/25/2019 11:36 PM CDT Kaveh Charles MD LAB BLOOD ORDERABLES Final Result Performing Organization Address City/[facility]/ZIP Co de Phone Number [facility] [place] [address] * POCT glucose (05/25/2019 4:57 PM CDT) Glucose, POC 175 70 - 199 mg/dL [facility] Blood specimen (specimen) 05/25/2019 4:57 PM CDT 05/25/2019 4:57 PM CDT Kaveh Charles MD LAB POCT ORDERABLES - DESTINEE CE Final Result Performing Organization Address [facility] [place] [address] * (ABNORMAL) POCT glucose (05/25/2019 3:05 PM CDT) Glucose, POC 209(H) 70 - 199 mg/dL [facility] Blood specimen (specimen) 05/25/2019 3:05 PM CDT 05/25/2019 3:05 PM CDT Kaveh Charles MD LAB POCT ORDERABLES - DESTINEE CE Final Result Performing Organization Address [facility] Co de Phone Number [facility] [place] [address] * XR Knee Left 1 or 2 View (05/25/2019 2:51 PM CDT) Anatomical Region Laterality Modality Lower Extremities, Knee Left Computed Radiography 05/25/2019 3:44 PM CDT Impressions 05/25/2019 5:47 PM CDT New left knee endoprosthesis in expected position. Dictated by: Kaiser Nogueira M.D. The radiology attending physician has personally reviewed this study, and had reviewed and/or edited this written report and agrees with it. Electronically signed by: Miranda Quan M.D. Narrative 05/25/2019 5:47 PM CDT EXAMINATION: XR KNEE LEFT 1 OR 2 VIEWS HISTORY: Left distal femur fracture. FINDINGS: 2 views of the left knee on 3 exposures are submitted for interpretation with comparison made to radiographs on 05/21/2019. There is a new left knee endoprosthesis in expected position. ??There is no periprosthetic fracture. ??Expected postsurgical changes of soft tissue and intra-articular gas, soft tissue swelling and a small knee joint effusion are noted about the left knee. ??Midline anterior surgical skin theodore are present. Small osseous fragments project posterior and lateral to the femoral component. Procedure Note Miranda Quan MD - 05/25/2019 EXAMINATION: XR KNEE LEFT 1 OR 2 VIEWS HISTORY: Left distal femur fracture. FINDINGS: 2 views of the left knee on 3 exposures are submitted for interpretation with comparison made to radiographs on 05/21/2019. There is a new left knee endoprosthesis in expected position. There is no periprosthetic fracture. Expected postsurgical changes of soft tissue and intra-articular gas, soft tissue swelling and a small knee joint effusion are noted about the left knee. Midline anterior surgical skin theodore are present. Small osseous fragments project posterior and lateral to the femoral component. IMPRESSION: New left knee endoprosthesis in expected position. Dictated by: Kaiser Nogueira M.D. The radiology attending physician has personally reviewed this study, and had reviewed and/or edited this written report and agrees with it. Electronically signed by: Miranda Quan M.D. Kaveh Charles MD IMG XR PROCEDURES Final Re sult * (ABNORMAL) Basic metabolic panel (05/25/2019 2:19 PM CDT) Sodium 137 135 - 145 mmol/L [facility] Potassium, pl 4.4 3.3 - 4.9 mmol/L [facility] Chloride 105 97 - 110 mmol/L [facility] CO2 27 22 - 32 mmol/L [facility] Anion gap 5 2 - 15 mmol/L [facility] BUN 14 8 - 25 mg/dL [facility] Creatinine 0.50(L) 0.60 - 1.10 mg/dL [facility] Glucose 204(H) 70 - 199 mg/dL [facility] Comment: Interpretive Data Fasting glucose >/= 126 [...] 2017. Calcium 8.3(L) 8.5 - 10.3 mg/dL [facility] Blood specimen (specimen) 05/25/2019 2:19 PM CDT 05/25/2019 2:44 PM CDT Kaveh Charles MD LAB BLOOD ORDERABLES Final Result [facility] [place] [address] * (ABNORMAL) CBC without differential (05/25/2019 2:19 PM CDT) WBC 6.7 3.8 - 9.9 K/cumm [facility] Hgb 9.9(L) 11.9 - 15.5 g/dL [facility] Hct 30.5(L) 35.6 - 45.5 % [facility] Plt 212 150 - 400 K/cumm [facility] MPV 10.4 9.1 - 12.3 fL [facility] RBC 3.09(L) 3.90 - 5.20 M/cumm [facility] MCV 98.7(H) 81.3 - 96.4 fL [facility] MCH 32.0 27.1 - 33.3 pg [facility] MCHC 32.5 32.3 - 35.7 g/dL [facility] RDW CV 14.6 11.1 - 14.9 % [facility] RDW SD 51.8(H) 35.7 - 48.1 fL [facility] NRBC abs 0.00 0.00 - 0.01 K/cumm [facility] Blood specimen (specimen) 05/25/2019 2:19 PM CDT 05/25/2019 2:44 PM CDT Kaveh Charles MD LAB BLOOD ORDERABLES Final Result Performing Organization Address [facility] de Phone Number [facility] [place] [address] * (ABNORMAL) Protime-INR (05/25/2019 2:19 PM CDT) PT 13.3(H) 8.6 - 13.0 sec [facility] INR 1.2 0.8 - 1.2 [facility] Comment: Interpretive data Oral anticoagulant therapeutic ranges: Venous thromboembolism prophylaxis or treatment: 2.0-3.0 CARDIOLOGY Standard range: 2.0-3.0 High-intensity range: 2.5-3.5 Refer to indication-specific guidelines for appropriate target ranges for prosthetic heart valve replacement. Current interpretive data was last revised on 2019. Blood specimen (specimen) 05/25/2019 2:19 PM CDT 05/25/2019 2:44 PM CDT Kaveh Charles MD LAB BLOOD ORDERABLES Final Result Performing Organization Address [facility] de Phone Number [facility] [place] [address] * (ABNORMAL) POC Blood Gas and Chemistries, Arterial - (05/25/2019 1:51 PM CDT) pH, Art 7.37 7.35 - 7.45 [facility] pCO2, Art POC 43 35 - 45 mmHg [facility] pO2, Art POC 252(H) 83 - 108 mmHg [facility] Na, POC 138 135 - 145 mmol/L [facility] K POC 3.8 3.3 - 4.9 mmol/L [facility] Cl, POC 105 97 - 110 mmol/L [facility] Ionized Ca, POC 4.92 4.50 - 5.10 mg/dL [facility] Glucose, POC 177 70 - 199 mg/dL [facility] Lactate, POC 1.3 0.7 - 2.2 mmol/L [facility] SO2 (tatiana) arterial 100(H) 90 - 95 % [facility] Base excess, POC -0.6 mmol/L [facility] HCO3, Art POC 25 20 - 30 mmol/L [facility] Hct, POC 26.0(L) 36.3 - 45.3 % [facility] O2 Sat, Art POC (Calc) 100 % [facility] Total Hb, POC 8.8(L) 11.9 - 15.5 g/dL [facility] Blood specimen (specimen) 05/25/2019 1:51 PM CDT 05/25/2019 1:51 PM CDT Kaveh Charles MD LAB POCT ORDERABLES - DESTINEE CE Final Result [facility] Department [place] [address] * Transfuse RBC (05/25/2019 1:36 PM CDT) Blood specimen (specimen) Paul Kelly MD BLOOD TRANSFUSION ORDERABLES Final Result [facility] Department [place] [place] [address] * (ABNORMAL) POC Blood Gas and Chemistries, Venous - (05/25/2019 1:29 PM CDT) [facility] Signature pH, [place] POC 7.35 7.32 - 7.43 [facility] pCO2, [place] POC 32(L) 40 - 50 mmHg [facility] pO2, [place] POC 45 mmHg [facility] Na, POC 141 135 - 145 mmol/L [facility] K POC 2.6(L) 3.3 - 4.9 mmol/L [facility] Cl, POC 118(H) 97 - 110 mmol/L [facility] Ionized Ca, POC 3.44(L) 4.50 - 5.10 mg/dL [facility] Glucose, POC 116 70 - 199 mg/dL [facility] Lactate, POC 1.0 0.7 - 2.2 mmol/L [facility] O2 Sat, [place] POC (Tatiana) 81 % [facility] Base excess, POC -6.8 mmol/L [facility] HCO3, [place] POC 18(L) 20 - 30 mmol/L [facility] Hct, POC 19.0(L) 36.3 - 45.3 % [facility] Total Hb, POC 6.2(L) 11.9 - 15.5 g/dL [facility] O2 Sat, [place] POC (Calc) 78 % [facility] Blood specimen (specimen) 05/25/2019 1:29 PM CDT 05/25/2019 1:29 PM CDT Kaveh Charles MD LAB POCT ORDERABLES - DESTINEE CE Final Result Performing Organization Address City/[facility]/ZIP Co de Phone Number [facility] Department [place] [place] [place] [address] * POCT glucose (05/25/2019 1:00 PM CDT) Glucose, POC 156 70 - 199 mg/dL [facility] Blood specimen (specimen) 05/25/2019 1:00 PM CDT 05/25/2019 1:00 PM CDT Kaveh Charles MD LAB POCT ORDERABLES - EDSTINEE CE Final Result [facility] [place] [place] [address] * POCT glucose (05/25/2019 10:41 AM CDT) Glucose, POC 170 70 - 199 mg/dL [facility] Blood specimen (specimen) 05/25/2019 10:41 AM CDT 05/25/2019 10:41 AM CDT Kaveh Charles MD LAB POCT ORDERABLES - DESTINEE CE Final Result Performing Organization Address [facility] [place] [address] * Type and screen (05/25/2019 10:01 AM CDT) Gian, indirect Negative [facility] ABO Rh O Positive [facility] Blood specimen (specimen) 05/25/2019 10:01 AM CDT 05/25/2019 10:15 AM CDT Narrative [facility] - 05/25/2019 11:03 AM CDT Has the patient had Daratumumab (Darzalex) in the past 6 months?->Unknown us Paulina France NP LAB BLOOD BANK TEST ORDERAB LES Final Result Performing Organization Address [facility] [place] [address] * Prepare RBC: 2 Units (05/25/2019 9:59 AM CDT) Product code [id number] [facility] Unit Number [id number] [facility] Product Blood Type OPOS [facility] Dispense Status RETURNED [facility] Product code [id number] [facility] Unit Number [id number] [facility] Product Blood Type OPOS [facility] Dispense Status PRESUMED TRANSFUSED [facility] Blood specimen (specimen) 05/25/2019 9:59 AM CDT 05/25/2019 9:59 AM CDT Narrative [facility] - 05/26/2019 12:49 AM CDT Are special requirements needed? (all products are leukoreduced)->No Date required:-[id number] [facility] # of [id number] Reasons:-Intra-op transfusion} us Paul Kelly MD BLOOD BANK PRODUCT ORDERABLES Final Result Performing Organization Address [facility] Co de Phone Number [facility] [place] [address] * POCT glucose (05/25/2019 7:54 AM CDT) Glucose, POC 155 70 - 199 mg/dL [facility] Blood specimen (specimen) 05/25/2019 7:54 AM CDT 05/25/2019 7:54 AM CDT us Kaveh Charles MD LAB POCT ORDERABLES - DESTINEE CE Final Result Performing Organization Address [facility] de Phone Number [facility] [place] [address] * (ABNORMAL) Urinalysis, microscopic only (05/25/2019 6:11 AM CDT) WBC, ur 0-5 0 - 5 /HPF [facility] RBC, ur 0-2 0 - 2 /HPF [facility] Epithelial cells, squamous, ur 1-5 0 - 5 /HPF [facility] Mucous, ur Present(A) [facility] Culture Reflex Comment Reflex conditions for urine culture (WBC >10) not met. [facility] Urine 05/25/2019 6:11 AM CDT 05/25/2019 6:27 AM CDT us Berny Carrera MD LAB URINE ORDERABLES Sri l Result Performing Organization Address [facility] Co de Phone Number [facility] [place] [address] * (ABNORMAL) Urinalysis reflex to microscopic and culture Urine (05/25/2019 6:11 AM CDT) Color, ur Yellow Yellow [facility] Clarity, ur Clear Clear [facility] Specific gravity, ur 1.023 1.010 - 1.025 [facility] pH, urine 6 [facility] Protein, ur ql 1+(A) Negative [facility] Glucose, ur ql Negative Negative [facility] Ketones, ur Trace Negative [facility] Bilirubin, ur Negative Negative [facility] Blood, ur Negative Negative [facility] Urobilinogen, ur <2.0 <2.0 mg/dL [facility] Nitrite, ur Negative Negative [facility] Leukocyte esterase, ur Negative Negative [facility] UA reflex comment Reflex to microscopic UA will be performed. [facility] Urine 05/25/2019 6:11 AM CDT 05/25/2019 6:27 AM CDT Narrative [facility] - 05/25/2019 6:39 AM CDT ?? Urine pH is affected by diet, medications, systemic acid-base disturbances, and renal tubular function. ??pH may affect urinary stone formation. ??For example, urine pH below 6.0 may help reduce the tendency for calcium phosphate stones and pH greater than 6.0 may reduce the tendency for uric acid stone formation. Source: [facility] [employer] Last revised 03-26-2017 Urine pH is affected by diet, medications, systemic acid-base disturbances, and renal tubular function. ??pH may affect urinary stone formation. ??For example, urine pH below 6.0 may help reduce the tendency for calcium phosphate stones and pH greater than 6.0 may reduce the tendency for uric acid stone formation. Source: [employer] Last revised 03-26-2017 Berny Carrera MD LAB MICROBIOLOGY - GENERA L ORDERABLES Final Result [facility] [place] [address] * POCT glucose (05/25/2019 3:34 AM CDT) Glucose, POC 164 70 - 199 mg/dL [facility] Blood specimen (specimen) 05/25/2019 3:34 AM CDT 05/25/2019 3:34 AM CDT Kaveh Charles MD LAB POCT ORDERABLES - DESTINEE CE Final Result Performing Organization Address [facility] de Phone Number [facility] [place] [address] * POCT glucose (05/24/2019 11:32 PM CDT) Glucose, POC 153 70 - 199 mg/dL [facility] Blood specimen (specimen) 05/24/2019 11:32 PM CDT 05/24/2019 11:32 PM CDT Kaveh Charles MD LAB POCT ORDERABLES - DESTINEE CE Final Result Performing Organization Address [facility] de Phone Number [facility] [place] [address] * Magnesium (05/24/2019 10:08 PM CDT) Magnesium 2.2 1.4 - 2.5 mg/dL [facility] Blood specimen (specimen) 05/24/2019 10:08 PM CDT 05/24/2019 10:25 PM CDT Kaveh Charles MD LAB BLOOD ORDERABLES Final Result Performing Organization Address [facility] de Phone Number [facility] [place] [address] * Differential, auto (05/24/2019 10:08 PM CDT) Neutrophil abs 4.0 1.7 - 6.5 K/cumm [facility] Imm gran abs 0.0 0.0 - 0.1 K/cumm [facility] Lymphocyte abs 1.6 0.8 - 3.3 K/cumm [facility] Monocyte abs 0.7 0.2 - 0.8 K/cumm [facility] Eosinophil abs 0.1 0.0 - 0.5 K/cumm [facility] Basophil abs 0.0 0.0 - 0.1 K/cumm [facility] Neutrophil pct 62.6 % [facility] Comment: Interpretive Data Percent cell count reference ranges are not reported, since discordance with absolute values may lead to misinterpretation of CBC data. Current Interpretive Data was last revised on 2017. Imm gran pct 0.3 % [facility] Comment: Interpretive Data Percent cell count reference ranges are not reported, since discordance with absolute values may lead to misinterpretation of CBC data. Current Interpretive Data was last revised on 2017. Lymphocyte pct 24.5 % [facility] Comment: Interpretive Data Percent cell count reference ranges are not reported, since discordance with absolute values may lead to misinterpretation of CBC data. Current Interpretive Data was last revised on 2017. Monocyte pct 10.6 % [facility] Comment: Interpretive Data Percent cell count reference ranges are not reported, since discordance with absolute values may lead to misinterpretation of CBC data. Current Interpretive Data was last revised on 2017. Eosinophil pct 1.5 % [facility] Comment: Interpretive Data Percent cell count reference ranges are not reported, since discordance with absolute values may lead to misinterpretation of CBC data. Current Interpretive Data was last revised on 2017. Basophil pct 0.5 % [facility] Comment: Interpretive Data Percent cell count reference ranges are not reported, since discordance with absolute values may lead to misinterpretation of CBC data. Current Interpretive Data was last revised on 2017. Blood specimen (specimen) 05/24/2019 10:08 PM CDT 05/24/2019 10:25 PM CDT Berny Carrera MD LAB BLOOD ORDERABLES Sri davalos Result [facility] [place] [address] * (ABNORMAL) Protime-INR (05/24/2019 10:08 PM CDT) PT 14.6(H) 8.6 - 13.0 sec [facility] INR 1.3(H) 0.8 - 1.2 [facility] Comment: Interpretive data Oral anticoagulant therapeutic ranges: Venous thromboembolism prophylaxis or treatment: 2.0-3.0 CARDIOLOGY Standard range: 2.0-3.0 High-intensity range: 2.5-3.5 Refer to indication-specific guidelines for appropriate target ranges for prosthetic heart valve replacement. Current interpretive data was last revised on 2019. Blood specimen (specimen) 05/24/2019 10:08 PM CDT 05/24/2019 10:18 PM CDT Kaveh Charles MD LAB BLOOD ORDERABLES Final Result [facility] [place] [address] * (ABNORMAL) Basic metabolic panel (05/24/2019 10:08 PM CDT) Pathologist [facility] Sodium 132(L) 135 - 145 mmol/L [facility] Potassium, pl 4.3 3.3 - 4.9 mmol/L [facility] Comment:Hemolyzed; Potassium value may be falsely elevated by as much as 0.6-1.0 mmol/L. Suggest redraw and reanalysis. Chloride 100 97 - 110 mmol/L [facility] CO2 23 22 - 32 mmol/L [facility] Anion gap 9 2 - 15 mmol/L [facility] BUN 18 8 - 25 mg/dL [facility] Creatinine 0.45(L) 0.60 - 1.10 mg/dL [facility] Glucose 149 70 - 199 mg/dL [facility] Comment: Interpretive Data Fasting glucose >/= 126 [...] interpretive data was last revised 2017. Calcium 8.2(L) 8.5 - 10.3 mg/dL [facility] Blood specimen (specimen) 05/24/2019 10:08 PM CDT 05/24/2019 10:25 PM CDT Kaveh Charles MD LAB BLOOD ORDERABLES Final Result [facility] [place] [address] * (ABNORMAL) CBC with auto differential (05/24/2019 10:08 PM CDT) WBC 6.5 3.8 - 9.9 K/cumm [facility] Hgb 9.4(L) 11.9 - 15.5 g/dL [facility] Hct 28.7(L) 35.6 - 45.5 % [facility] Plt 194 150 - 400 K/cumm [facility] MPV 10.3 9.1 - 12.3 fL [facility] RBC 2.98(L) 3.90 - 5.20 M/cumm [facility] MCV 96.3 81.3 - 96.4 fL [facility] MCH 31.5 27.1 - 33.3 pg [facility] MCHC 32.8 32.3 - 35.7 g/dL [facility] RDW CV 13.9 11.1 - 14.9 % [facility] RDW SD 48.5(H) 35.7 - 48.1 fL [facility] NRBC abs 0.00 0.00 - 0.01 K/cumm [facility] Blood specimen (specimen) 05/24/2019 10:08 PM CDT 05/24/2019 10:25 PM CDT Kaveh Charles MD LAB BLOOD ORDERABLES Final Result Performing Organization Address City/[facility]/ZIP Co de Phone Number [facility] [place] [address] * POCT glucose (05/24/2019 8:59 PM CDT) Glucose, POC 159 70 - 199 mg/dL [facility] Blood specimen (specimen) 05/24/2019 8:59 PM CDT 05/24/2019 8:59 PM CDT us Kaveh Charles MD LAB POCT ORDERABLES - [place] CE Final Result Performing Organization Address [facility] [place] [address] * POCT glucose (05/24/2019 3:28 PM CDT) Glucose, POC 187 70 - 199 mg/dL [facility] Blood specimen (specimen) 05/24/2019 3:28 PM CDT 05/24/2019 3:28 PM CDT us Kaveh Charles MD LAB POCT ORDERABLES - [place] CE Final Result Performing Organization Address [facility] Co de Phone Number [facility] [place] [address] * POCT glucose (05/24/2019 11:16 AM CDT) Glucose, POC 189 70 - 199 mg/dL [facility] Blood specimen (specimen) 05/24/2019 11:16 AM CDT 05/24/2019 11:16 AM CDT us Kaveh Charles MD LAB POCT ORDERABLES - [place] CE Final Result Performing Organization Address City/[facility]/ZIP Co de Phone Number [place] [address] * POCT glucose (05/24/2019 7:54 AM CDT) Glucose, POC 161 70 - 199 mg/dL [facility] Blood specimen (specimen) 05/24/2019 7:54 AM CDT 05/24/2019 7:54 AM CDT Kaveh Charles MD LAB POCT ORDERABLES - [place] CE Final Result Performing Organization Address City/[facility] [place] [address] * POCT glucose (05/24/2019 4:54 AM CDT) Glucose, POC 155 70 - 199 mg/dL [facility] Blood specimen (specimen) 05/24/2019 4:54 AM CDT 05/24/2019 4:54 AM CDT us Kaveh Charles MD LAB POCT ORDERABLES - [place] CE Final Result Performing Organization Address City/[facility] [place] [address] * POCT glucose (05/24/2019 12:43 AM CDT) Glucose, POC 155 70 - 199 mg/dL [facility] Blood specimen (specimen) 05/24/2019 12:43 AM CDT 05/24/2019 12:43 AM CDT Kaveh Charles MD LAB POCT ORDERABLES - [place] CE Final Result Performing Organization Address City/[facility] [place] [address] * Differential, auto (05/23/2019 10:20 PM CDT) Neutrophil abs 4.7 1.7 - 6.5 K/cumm [facility] Imm gran abs 0.0 0.0 - 0.1 K/cumm [facility] Lymphocyte abs 1.5 0.8 - 3.3 K/cumm [facility] Monocyte abs 0.7 0.2 - 0.8 K/cumm [facility] Eosinophil abs 0.0 0.0 - 0.5 K/cumm [facility] Basophil abs 0.0 0.0 - 0.1 K/cumm [facility] Neutrophil pct 66.8 % [facility] Comment: Interpretive Data Percent cell count reference ranges are not reported, since discordance with absolute values may lead to misinterpretation of CBC data. Current Interpretive Data was last revised on 2017. Imm gran pct 0.4 % [facility] Comment: Interpretive Data Percent cell count reference ranges are not reported, since discordance with absolute values may lead to misinterpretation of CBC data. Current Interpretive Data was last revised on 2017. Lymphocyte pct 21.6 % [facility] Comment: Interpretive Data Percent cell count reference ranges are not reported, since discordance with absolute values may lead to misinterpretation of CBC data. Current Interpretive Data was last revised on 2017. Monocyte pct 10.2 % [facility] Comment: Interpretive Data Percent cell count reference ranges are not reported, since discordance with absolute values may lead to misinterpretation of CBC data. Current Interpretive Data was last revised on 2017. Eosinophil pct 0.7 % [facility] Comment: Interpretive Data Percent cell count reference ranges are not reported, since discordance with absolute values may lead to misinterpretation of CBC data. Current Interpretive Data was last revised on 2017. Basophil pct 0.3 % [facility] Comment: Interpretive Data Percent cell count reference ranges are not reported, since discordance with absolute values may lead to misinterpretation of CBC data. Current Interpretive Data was last revised on 2017. Blood specimen (specimen) 05/23/2019 10:20 PM CDT 05/23/2019 10:42 PM CDT Berny Carrera MD LAB BLOOD ORDERABLES Sri l Result [facility] Department [place] [address] * (ABNORMAL) Basic metabolic panel (05/23/2019 10:20 PM CDT) Pathologist [facility] Sodium 136 135 - 145 mmol/L [facility] Potassium, pl 3.8 3.3 - 4.9 mmol/L [facility] Chloride 101 97 - 110 mmol/L [facility] CO2 30 22 - 32 mmol/L [facility] Anion gap 5 2 - 15 mmol/L [facility] BUN 18 8 - 25 mg/dL [facility] Creatinine 0.59(L) 0.60 - 1.10 mg/dL [facility] Glucose 163 70 - 199 mg/dL [facility] Comment: Interpretive Data Fasting glucose >/= 126 [...] 2017. Calcium 8.8 8.5 - 10.3 mg/dL [facility] Blood specimen (specimen) 05/23/2019 10:20 PM CDT 05/23/2019 10:42 PM CDT Kaveh Charles MD LAB BLOOD ORDERABLES Final Result [facility] Department [place] [address] * (ABNORMAL) CBC with auto differential (05/23/2019 10:20 PM CDT) Pathologist [facility] WBC 7.0 3.8 - 9.9 K/cumm [facility] Hgb 9.2(L) 11.9 - 15.5 g/dL [facility] Hct 28.1(L) 35.6 - 45.5 % [facility] Plt 186 150 - 400 K/cumm [facility] MPV 9.8 9.1 - 12.3 fL [facility] RBC 2.92(L) 3.90 - 5.20 M/cumm [facility] MCV 96.2 81.3 - 96.4 fL [facility] MCH 31.5 27.1 - 33.3 pg [facility] MCHC 32.7 32.3 - 35.7 g/dL [facility] RDW CV 13.9 11.1 - 14.9 % [facility] RDW SD 49.3(H) 35.7 - 48.1 fL [facility] NRBC abs 0.00 0.00 - 0.01 K/cumm [facility] Blood specimen (specimen) 05/23/2019 10:20 PM CDT 05/23/2019 10:42 PM CDT Kaveh Charles MD LAB BLOOD ORDERABLES Final Result [facility] Department [place] [place] [address] * POCT glucose (05/23/2019 9:43 PM CDT) Glucose, POC 173 70 - 199 mg/dL [facility] Blood specimen (specimen) 05/23/2019 9:43 PM CDT 05/23/2019 9:43 PM CDT Kaveh Charles MD LAB POCT ORDERABLES - [place] CE Final Result [facility] [place] [address] * POCT glucose (05/23/2019 4:35 PM CDT) Glucose, POC 165 70 - 199 mg/dL [facility] Blood specimen (specimen) 05/23/2019 4:35 PM CDT 05/23/2019 4:35 PM CDT Kaveh Charles MD LAB POCT ORDERABLES - [place] CE Final Result Performing Organization Address [facility] Co de Phone Number [facility] [place] [address] * POCT glucose (05/23/2019 11:22 AM CDT) Glucose, POC 174 70 - 199 mg/dL [facility] Blood specimen (specimen) 05/23/2019 11:22 AM CDT 05/23/2019 11:22 AM CDT us Kaveh Charles MD LAB POCT ORDERABLES - [place] CE Final Result Performing Organization Address [facility] de Phone Number [facility] [place] [place] [address] * POCT glucose (05/23/2019 8:21 AM CDT) Glucose, POC 169 70 - 199 mg/dL [facility] Blood specimen (specimen) 05/23/2019 8:21 AM CDT 05/23/2019 8:21 AM CDT us Kaveh Charles MD LAB POCT ORDERABLES - [place] CE Final Result Performing Organization Address [facility] Co de Phone Number [facility] [place] [place] [address] * POCT glucose (05/23/2019 4:42 AM CDT) Glucose, POC 156 70 - 199 mg/dL [facility] Blood specimen (specimen) 05/23/2019 4:42 AM CDT 05/23/2019 4:42 AM CDT Kaveh Charles MD LAB POCT ORDERABLES - [place] CE Final Result Performing Organization Address City/[facility] Co de Phone Number [facility] Department [place] [address] * POCT glucose (05/23/2019 12:12 AM CDT) Pathologist [facility] Glucose, POC 183 70 - 199 mg/dL [facility] Blood specimen (specimen) 05/23/2019 12:12 AM CDT 05/23/2019 12:12 AM CDT Kaveh Charles MD LAB POCT ORDERABLES - [place] CE Final Result Performing Organization Address [facility] de Phone Number [facility] Department [place] [address] * Differential, auto (05/22/2019 11:17 PM CDT) Pathologist [facility] Neutrophil abs 5.3 1.7 - 6.5 K/cumm [facility] Imm gran abs 0.0 0.0 - 0.1 K/cumm [facility] Lymphocyte abs 1.3 0.8 - 3.3 K/cumm [facility] Monocyte abs 0.8 0.2 - 0.8 K/cumm [facility] Eosinophil abs 0.0 0.0 - 0.5 K/cumm [facility] Basophil abs 0.0 0.0 - 0.1 K/cumm [facility] Neutrophil pct 71.2 % [facility] Comment: Interpretive Data Percent cell count reference ranges are not reported, since discordance with absolute values may lead to misinterpretation of CBC data. Current Interpretive Data was last revised on 2017. Imm gran pct 0.3 % [facility] Comment: Interpretive Data Percent cell count reference ranges are not reported, since discordance with absolute values may lead to misinterpretation of CBC data. Current Interpretive Data was last revised on 2017. Lymphocyte pct 17.6 % [facility] Comment: Interpretive Data Percent cell count reference ranges are not reported, since discordance with absolute values may lead to misinterpretation of CBC data. Current Interpretive Data was last revised on 2017. Monocyte pct 10.1 % [facility] Comment: Interpretive Data Percent cell count reference ranges are not reported, since discordance with absolute values may lead to misinterpretation of CBC data. Current Interpretive Data was last revised on 2017. Eosinophil pct 0.5 % [facility] Comment: Interpretive Data Percent cell count reference ranges are not reported, since discordance with absolute values may lead to misinterpretation of CBC data. Current Interpretive Data was last revised on 2017. Basophil pct 0.3 % [facility] Comment: Interpretive Data Percent cell count reference ranges are not reported, since discordance with absolute values may lead to misinterpretation of CBC data. Current Interpretive Data was last revised on 2017. Blood specimen (specimen) 05/22/2019 11:17 PM CDT 05/22/2019 11:35 PM CDT Berny Carrera MD LAB BLOOD ORDERABLES Sri davalos Result [facility] [place] [address] * (ABNORMAL) Basic metabolic panel (05/22/2019 11:17 PM CDT) Sodium 136 135 - 145 mmol/L [facility] Potassium, pl 3.7 3.3 - 4.9 mmol/L [facility] Chloride 102 97 - 110 mmol/L [facility] CO2 29 22 - 32 mmol/L [facility] Anion gap 5 2 - 15 mmol/L [facility] BUN 25 8 - 25 mg/dL [facility] Creatinine 0.83 0.60 - 1.10 mg/dL [facility] Glucose 180 70 - 199 mg/dL [facility] Comment: Interpretive Data Fasting glucose >/= 126 [...] interpretive data was last revised 2017. Calcium 8.4(L) 8.5 - 10.3 mg/dL [facility] Blood specimen (specimen) 05/22/2019 11:17 PM CDT 05/22/2019 11:34 PM CDT Kaveh Charles MD LAB BLOOD ORDERABLES Final Result [facility] [place] [address] * (ABNORMAL) CBC with auto differential (05/22/2019 11:17 PM CDT) WBC 7.4 3.8 - 9.9 K/cumm [facility] Hgb 9.9(L) 11.9 - 15.5 g/dL [facility] Hct 30.3(L) 35.6 - 45.5 % [facility] Plt 203 150 - 400 K/cumm [facility] MPV 10.3 9.1 - 12.3 fL [facility] RBC 3.15(L) 3.90 - 5.20 M/cumm [facility] MCV 96.2 81.3 - 96.4 fL [facility] MCH 31.4 27.1 - 33.3 pg [facility] MCHC 32.7 32.3 - 35.7 g/dL [facility] RDW CV 13.9 11.1 - 14.9 % [facility] RDW SD 48.9(H) 35.7 - 48.1 fL [facility] NRBC abs 0.00 0.00 - 0.01 K/cumm [facility] Blood specimen (specimen) 05/22/2019 11:17 PM CDT 05/22/2019 11:35 PM CDT Kaveh Charles MD LAB BLOOD ORDERABLES Final Result Performing Organization Address [facility] de Phone Number [facility] [place] [address] * POCT glucose (05/22/2019 9:23 PM CDT) Glucose, POC 171 70 - 199 mg/dL [facility] Blood specimen (specimen) 05/22/2019 9:23 PM CDT 05/22/2019 9:23 PM CDT Kaveh Charles MD LAB POCT ORDERABLES - [place] CE Final Result Performing Organization Address [facility] de Phone Number [facility] [place] [place] [address] * POCT glucose (05/22/2019 5:18 PM CDT) Glucose, POC 147 70 - 199 mg/dL [facility] Blood specimen (specimen) 05/22/2019 5:18 PM CDT 05/22/2019 5:18 PM CDT Kaveh Charles MD LAB POCT ORDERABLES - [place] CE Final Result Performing Organization Address [facility] [place] [address] * POCT glucose (05/22/2019 11:21 AM CDT) Glucose, POC 171 70 - 199 mg/dL [facility] Blood specimen (specimen) 05/22/2019 11:21 AM CDT 05/22/2019 11:21 AM CDT us Steve Garcia MD LAB POCT ORDERABLES - DEV ICE Final Result Performing Organization Address [facility] Co de Phone Number [facility] [place] [address] * POCT glucose (05/22/2019 10:30 AM CDT) Glucose, POC 104 70 - 199 mg/dL [facility] Glucose comment 1 RN Notified [facility] Blood specimen (specimen) 05/22/2019 10:30 AM CDT 05/22/2019 10:30 AM CDT us Steve Garcia MD LAB POCT ORDERABLES - DEV ICE Final Result Performing Organization Address [facility] de Phone Number [facility] [place] [address] * POCT glucose (05/22/2019 8:29 AM CDT) Glucose, POC 131 70 - 199 mg/dL [facility] Blood specimen (specimen) 05/22/2019 8:29 AM CDT 05/22/2019 8:29 AM CDT us Steve Garcia MD LAB POCT ORDERABLES - DEV ICE Final Result Performing Organization Address [facility] Co de Phone Number [facility] [place] [place] [address] * POCT glucose (05/22/2019 6:39 AM CDT) Glucose, POC 178 70 - 199 mg/dL [facility] Blood specimen (specimen) 05/22/2019 6:39 AM CDT 05/22/2019 6:39 AM CDT Steve Garcia MD LAB POCT ORDERABLES - DEV ICE Final Result Performing Organization Address [facility] Co de Phone Number [facility] [place] [address] * POCT glucose (05/22/2019 4:59 AM CDT) Glucose, POC 190 70 - 199 mg/dL [facility] Blood specimen (specimen) 05/22/2019 4:59 AM CDT 05/22/2019 4:59 AM CDT us Steve Garcia MD LAB POCT ORDERABLES - DEV ICE Final Result Performing Organization Address [facility] [place] [address] * (ABNORMAL) Protime-INR (05/22/2019 4:57 AM CDT) [facility] PT 15.1(H) 8.6 - 13.0 sec [facility] INR 1.4(H) 0.8 - 1.2 [facility] Comment: Interpretive data Oral anticoagulant therapeutic ranges: Venous thromboembolism prophylaxis or treatment: 2.0-3.0 CARDIOLOGY Standard range: 2.0-3.0 High-intensity range: 2.5-3.5 Refer to indication-specific guidelines for appropriate target ranges for prosthetic heart valve replacement. Current interpretive data was last revised on 2019. Blood specimen (specimen) 05/22/2019 4:57 AM CDT 05/22/2019 5:22 AM CDT Steve Garcia MD LAB BLOOD ORDERABLES Sri l Result Performing Organization Address [facility] Co de Phone Number [place] [address] * POCT glucose (05/22/2019 12:39 AM RENTAL CLERK) Glucose, POC 160 70 - 199 mg/dL [facility] Blood specimen (specimen) 05/22/2019 12:39 AM RENTAL CLERK 05/22/2019 12:39 AM RENTAL CLERK us Steve Garcia MD LAB POCT ORDERABLES - DEV ICE Final Result Performing Organization Address [facility] de Phone Number [facility] [place] [address] * Check Sample (05/21/2019 11:48 PM RENTAL CLERK) ABO Rh O Positive [facility] HCLL OTHER 05/21/2019 11:4 8 PM RENTAL CLERK 05/22/2019 12:22 AM RENTAL CLERK us Steve Garcia MD LAB BLOOD ORDERABLES Sri l Result Performing Organization Address [facility] de Phone Number [facility] [place] [address] * POCT glucose (05/21/2019 11:47 PM RENTAL CLERK) Glucose, POC 158 70 - 199 mg/dL [facility] Blood specimen (specimen) 05/21/2019 11:47 PM RENTAL CLERK 05/21/2019 11:47 PM RENTAL CLERK Steve Garcia MD LAB POCT ORDERABLES - DEV ICE Final Result Performing Organization Address [facility] de Phone Number [facility] [place] [place] [address] * CT Knee Left WO Contrast (05/21/2019 10:21 PM RENTAL CLERK) Anatomical Region Laterality Modality Lower Extremities Left Computed Tomog noel 05/21/2019 10:4 6 PM RENTAL CLERK Impressions 05/23/2019 9:24 AM CDT 1. ??Complex comminuted fracture of the distal left femur with involvement of both condyles, lateral more than the medial with extension into the intercondylar notch. There is moderate to large lipohemarthrosis with a separate 2 cm fracture fragment that has impaled through the medial soft tissues of the knee and is embedded in the subcutaneous fat of the anterior knee with surrounding hematoma. ??No fracture of the proximal tibia and fibula. 2. Rupture of the medial patellar retinaculum with a small medial patellar avulsion fracture with associated lateral patellar dislocation. ??Multiple small fracture fragments are noted in the patellofemoral and tibiofemoral articulation. ??There is likely rupture of the anterior cruciate ligament. ??Patellar and quadriceps tendons appear intact. 3. Popliteal artery appears intact on this unenhanced CT. ?? Dictated by: Cyndie Loyd M.D. The radiology attending physician has personally reviewed this study, and had reviewed and/or edited this written report and agrees with it. Electronically signed by: Jorge Hoffmann M.D. Narrative 05/23/2019 9:24 AM CDT EXAMINATION: CT left knee without contrast HISTORY: Left distal femur fracture FINDINGS: Transaxial computed tomography of the left femur was performed without intravenous contrast. ??Multiplanar orthogonal reconstructions are performed in the sagittal and coronal plane on the bone windows. ??Review of the radiograph from the same day was performed. There is a highly comminuted distal left femur fracture with severe comminution of the left lateral femoral condyle extending into the intercondylar notch. ??There is additional comminution of bilateral femoral condyles more posteriorly. ??There is anterior angulation of the fracture apex with overlap of the fracture fragment by approximately 2 cm. ??There are multiple small fracture fragments noted within the patellofemoral and tibiotalar articulation. ??A large comminuted fracture fragment measuring 2.6 cm has detailed through the medial aspect of the joint and is embedded in the subcutaneous soft tissues of the anterior knee. ?? There is moderate to large volume lipohemarthrosis. ??Soft tissue contusion is noted overlying the patella. ??Soft tissue gas is noted along the medial aspect of the patella with complete disruption of the medial patellar retinaculum and associated lateral patellar subluxation/dislocation. ??A large hematoma is noted extending from the comminuted fracture all the way to the skin surface measuring 6.5 x 5.4 cm best seen on slice location -6242.9. ??There is likely disruption of the anterior cruciate ligament. Extensive soft tissue gas is noted tracking along the intermuscular septae within the anterior, medial and lateral compartment of the knee. ??Extensive hematoma is noted as evidenced by reticulation of the subcutaneous fat. On this noncontrast CT the popliteal artery appears intact however the edema/hematoma surrounds the artery. ??There is no proximal tibial or fibular fracture. ??There is mild fatty atrophy of the posterior thigh musculature. ??The quadriceps and patellar tendons appear intact. Procedure Note Jorge Hoffmann MD - 05/23/2019 EXAMINATION: CT left knee without contrast HISTORY: Left distal femur fracture FINDINGS: Transaxial computed tomography of the left femur was performed without intravenous contrast. Multiplanar orthogonal reconstructions are performed in the sagittal and coronal plane on the bone windows. Review of the radiograph from the same day was performed. There is a highly comminuted distal left femur fracture with severe comminution of the left lateral femoral condyle extending into the intercondylar notch. There is additional comminution of bilateral femoral condyles more posteriorly. There is anterior angulation of the fracture apex with overlap of the fracture fragment by approximately 2 cm. There are multiple small fracture fragments noted within the patellofemoral and tibiotalar articulation. A large comminuted fracture fragment measuring 2.6 cm has detailed through the medial aspect of the joint and is embedded in the subcutaneous soft tissues of the anterior knee. There is moderate to large volume lipohemarthrosis. Soft tissue contusion is noted overlying the patella. Soft tissue gas is noted along the medial aspect of the patella with complete disruption of the medial patellar retinaculum and associated lateral patellar subluxation/dislocation. A large hematoma is noted extending from the comminuted fracture all the way to the skin surface measuring 6.5 x 5.4 cm best seen on slice location -1582.9. There is likely disruption of the anterior cruciate ligament. Extensive soft tissue gas is noted tracking along the intermuscular septae within the anterior, medial and lateral compartment of the knee. Extensive hematoma is noted as evidenced by reticulation of the subcutaneous fat. On this noncontrast CT the popliteal artery appears intact however the edema/hematoma surrounds the artery. There is no proximal tibial or fibular fracture. There is mild fatty atrophy of the posterior thigh musculature. The quadriceps and patellar tendons appear intact. IMPRESSION: 1. Complex comminuted fracture of the distal left femur with involvement of both condyles, lateral more than the medial with extension into the intercondylar notch. There is moderate to large lipohemarthrosis with a separate 2 cm fracture fragment that has impaled through the medial soft tissues of the knee and is embedded in the subcutaneous fat of the anterior knee with surrounding hematoma. No fracture of the proximal tibia and fibula. 2. Rupture of the medial patellar retinaculum with a small medial patellar avulsion fracture with associated lateral patellar dislocation. Multiple small fracture fragments are noted in the patellofemoral and tibiofemoral articulation. There is likely rupture of the anterior cruciate ligament. Patellar and quadriceps tendons appear intact. 3. Popliteal artery appears intact on this unenhanced CT. Dictated by: Cyndie Loyd M.D. The radiology attending physician has personally reviewed this study, and had reviewed and/or edited this written report and agrees with it. Electronically signed by: Jorge Hoffmann M.D. Alessandro Malone MD IMG CT PROCEDURES Final Result * Neuro CT MR Outside Consult (05/21/2019 8:41 PM RENTAL CLERK) Anatomical Region Laterality Modality N/A Computed Tomogra phy 05/21/2019 8:49 PM RENTAL CLERK Impressions 05/22/2019 9:46 AM CDT 1. ??No acute intracranial abnormality. The findings, conclusions and recommendations within this report do not replace the initial findings, conclusions ??and recommendations made at the facility where the study was performed based upon the imaging and clinical condition at that time. ??Comparison with the prior report and clinical history is necessary. ??The provided images may or may not represent the little traverse source data set and thus may contain changes that may lower the accuracy of this second-opinion interpretation. Dictated by: Cyndie Loyd M.D. The radiology attending physician has personally reviewed this study, and had reviewed and/or edited this written report and agrees with it. Electronically signed by: Isreal Izaguirre M.D, PHD Narrative 05/22/2019 9:46 AM CDT EXAMINATION: RADIOLOGY CONSULTATION ON OUTSIDE IMAGING STUDY STUDY INITIALLY PERFORMED: 05/21/2019 at [facility]. TYPE OF STUDY: Multiple CT images of the head without contrast are provided at the time of this interpretation. CONTRAST ROUTE: No contrast was administered. The protocol was adequate to address the clinical question. The outside final report was not available at the time of this second opinion interpretation. TYPE OF CONSULTATION: Consult on outside imaging study with images submitted through [facility] DATE OF CONSULTATION: 05/21/2019 8:44 PM HISTORY: Fall on anticoagulation COMPARISON: None available. FINDINGS: Subtle stranding is noted overlying the right frontal bone likely representing contusion from the fall. There is no acute intracranial hemorrhage. ??There is age-appropriate cerebral atrophy. ??Intracranial atherosclerotic disease is noted. ??Periventricular white matter hypodensities are noted which are nonspecific but likely represent chronic microvascular changes. ??Ventricles are of normal size and morphology. No mass effect or midline shift is present. The wilde-white matter differentiation is normal. ??Bilateral lens replacements are noted. ??Orbits are normal. The visualized portions of the mastoids are normal. The visualized portions of the paranasal sinuses are normal. No fractures are identified. Procedure Note Isreal Izaguirre MD PhD - 05/22/2019 EXAMINATION: RADIOLOGY CONSULTATION ON OUTSIDE IMAGING STUDY STUDY INITIALLY PERFORMED: 05/21/2019 at [facility]. TYPE OF STUDY: Multiple CT images of the head without contrast are provided at the time of this interpretation. CONTRAST ROUTE: No contrast was administered. The protocol was adequate to address the clinical question. The outside final report was not available at the time of this second opinion interpretation. TYPE OF CONSULTATION: Consult on outside imaging study with images submitted through [facility] DATE OF CONSULTATION: 05/21/2019 8:44 PM HISTORY: Fall on anticoagulation COMPARISON: None available. FINDINGS: Subtle stranding is noted overlying the right frontal bone likely representing contusion from the fall. There is no acute intracranial hemorrhage. There is age-appropriate cerebral atrophy. Intracranial atherosclerotic disease is noted. Periventricular white matter hypodensities are noted which are nonspecific but likely represent chronic microvascular changes. Ventricles are of normal size and morphology. No mass effect or midline shift is present. The wilde-white matter differentiation is normal. Bilateral lens replacements are noted. Orbits are normal. The visualized portions of the mastoids are normal. The visualized portions of the paranasal sinuses are normal. No fractures are identified. IMPRESSION: 1. No acute intracranial abnormality. The findings, conclusions and recommendations within this report do not replace the initial findings, conclusions and recommendations made at the facility where the study was performed based upon the imaging and clinical condition at that time. Comparison with the prior report and clinical history is necessary. The provided images may or may not represent the little traverse source data set and thus may contain changes that may lower the accuracy of this second-opinion interpretation. Dictated by: Cyndie Loyd M.D. The radiology attending physician has personally reviewed this study, and had reviewed and/or edited this written report and agrees with it. Electronically signed by: Isreal Izaguirre M.D, PHD Alessandro Nahun Malone MD IMG CT PROCEDURES Final Result * CT Cervical Spine WO Contrast (05/21/2019 8:29 PM RENTAL CLERK) Anatomical Region Laterality Modality Spine N/A Computed Tomogra phy 05/21/2019 8:43 PM RENTAL CLERK Addenda Addendum by Isreal Izaguirre MD PhD on 02/27/2021 9:33 PM RENTAL CLERK Patient had follow up with ENT 12/19/20. Ann KNOX, RN. Edited by: Ann Morillo Electronically signed by: Isreal Izaguirre M.D, PHD Impressions 05/22/2019 9:46 AM CDT 1. ??No acute fracture in cervical spine. ?? 2. ??Enlarged thyroid gland with multiple calcified and noncalcified thyroid nodules. ??Recommend follow up of the Incidental thyroid nodules with ultrasound on nonemergent basis. Dictated by: Cyndie Loyd M.D. The radiology attending physician has personally reviewed this study, and had reviewed and/or edited this written report and agrees with it. Electronically signed by: Isreal Izaguirre M.D, PHD Narrative 05/22/2019 9:46 AM CDT EXAMINATION: CT of the cervical spine without contrast HISTORY: 79-year-old woman presented after a fall with left distal femur fracture. ??Evaluate cervical spine. TECHNIQUE: Computed tomography of the cervical spine was performed without contrast according to standard protocol. COMPARISON: None available. FINDINGS: There is minimal anterolisthesis of C2 on C3. ??There is straightening of the cervical spine. There is no acute fracture. Vertebral bodies are normal in height without compression fractures. ??Severe degenerative disc disease is noted at all level from C3 to T1. Posterior disc osteophyte complexes results in mild to moderate canal stenosis, prominent at C7 level where there is severe facet arthropathy contributing to canal stenosis. ??There is multilevel facet arthropathy and uncovertebral joint disease resulting in varying degrees of neural foraminal stenosis. The craniocervical junction is normal. ??Thyroid gland is enlarged with multiple calcified and noncalcified thyroid nodules. ??These can be further evaluated with ultrasound. Procedure Note Isreal Izaguirre MD PhD - 05/22/2019 EXAMINATION: CT of the cervical spine without contrast HISTORY: 79-year-old woman presented after a fall with left distal femur fracture. Evaluate cervical spine. TECHNIQUE: Computed tomography of the cervical spine was performed without contrast according to standard protocol. COMPARISON: None available. FINDINGS: There is minimal anterolisthesis of C2 on C3. There is straightening of the cervical spine. There is no acute fracture. Vertebral bodies are normal in height without compression fractures. Severe degenerative disc disease is noted at all level from C3 to T1. Posterior disc osteophyte complexes results in mild to moderate canal stenosis, prominent at C7 level where there is severe facet arthropathy contributing to canal stenosis. There is multilevel facet arthropathy and uncovertebral joint disease resulting in varying degrees of neural foraminal stenosis. The craniocervical junction is normal. Thyroid gland is enlarged with multiple calcified and noncalcified thyroid nodules. These can be further evaluated with ultrasound. IMPRESSION: 1. No acute fracture in cervical spine. 2. Enlarged thyroid gland with multiple calcified and noncalcified thyroid nodules. Recommend follow up of the Incidental thyroid nodules with ultrasound on nonemergent basis. Dictated by: Cyndie Loyd M.D. The radiology attending physician has personally reviewed this study, and had reviewed and/or edited this written report and agrees with it. Electronically signed by: Isreal Izaguirre M.D, PHD [facility] Nahun Malone MD [facility] CT PROCEDURES Edite d Result - Final * XR Knee Left 1 or 2 Views (05/21/2019 8:26 PM RENTAL CLERK) Anatomical Region Laterality Modality Lower Extremities, Knee Left Computed Radiography 05/21/2019 8:37 PM RENTAL CLERK Impressions 05/23/2019 7:07 AM CDT 1. ??Highly comminuted and widely displaced fracture of the distal left femur with extension into the condylar and intercondylar eminence. ?? 2. ??Large left lipohemarthrosis and soft tissue gas within the left thigh compatible with open fracture. Dictated by: Val Ng M.D. The radiology attending physician has personally reviewed this study, and had reviewed and/or edited this written report and agrees with it. Electronically signed by: Jorge Hoffmann M.D. Narrative 05/23/2019 7:07 AM CDT EXAMINATION: XR FEMUR LEFT 2 OR MORE VIEWS, XR PELVIS 1 OR 2 VIEWS, XR KNEE LEFT 1 OR 2 VIEWS HISTORY: Mechanical fall COMPARISON: None. FINDINGS: Left knee: There is a highly comminuted and severely displaced fracture of the distal left femur with at least one shaft width posterior displacement of the distal fracture fragment. ??Fractures extend through both the condylar and intercondylar prominence. ??There is an osseous fragment which is oriented perpendicular to the femoral shaft within the region of the quadriceps tendon, it is unclear if this is part of the the patella or an additional femur fracture fragment. There is a large lipohemarthrosis. ??There is soft tissue gas within the left thigh. ??There is no fracture appreciated in the proximal tibia or fibula. Left femur: There is no proximal femur fracture. ??The left hip joint space is normal. ??There is mottled lucency overlying the posterior and lateral left thigh likely reflects soft tissue gas. ?? Pelvis: Single frontal view of the pelvis is obtained. ??There is no displaced pelvic fracture. ??There is degenerative change in the lower lumbar spine. ??Sacroiliac joints are normal and symmetric. ??There are phleboliths overlying the pelvis. Procedure Note Jorge Hoffmann MD - 05/23/2019 EXAMINATION: XR FEMUR LEFT 2 OR MORE VIEWS, XR PELVIS 1 OR 2 VIEWS, XR KNEE LEFT 1 OR 2 VIEWS HISTORY: Mechanical fall COMPARISON: None. FINDINGS: Left knee: There is a highly comminuted and severely displaced fracture of the distal left femur with at least one shaft width posterior displacement of the distal fracture fragment. Fractures extend through both the condylar and intercondylar prominence. There is an osseous fragment which is oriented perpendicular to the femoral shaft within the region of the quadriceps tendon, it is unclear if this is part of the the patella or an additional femur fracture fragment. There is a large lipohemarthrosis. There is soft tissue gas within the left thigh. There is no fracture appreciated in the proximal tibia or fibula. Left femur: There is no proximal femur fracture. The left hip joint space is normal. There is mottled lucency overlying the posterior and lateral left thigh likely reflects soft tissue gas. Pelvis: Single frontal view of the pelvis is obtained. There is no displaced pelvic fracture. There is degenerative change in the lower lumbar spine. Sacroiliac joints are normal and symmetric. There are phleboliths overlying the pelvis. IMPRESSION: 1. Highly comminuted and widely displaced fracture of the distal left femur with extension into the condylar and intercondylar eminence. 2. Large left lipohemarthrosis and soft tissue gas within the left thigh compatible with open fracture. Dictated by: Val Ng M.D. The radiology attending physician has personally reviewed this study, and had reviewed and/or edited this written report and agrees with it. Electronically signed by: Jorge Hoffmann M.D. Alessandro Malone MD IM XR PROCEDURES Final Result * XR Pelvis 1 or 2 Views (05/21/2019 8:26 PM RENTAL CLERK) Anatomical Region Laterality Modality Body, Pelvis N/A Computed Radiogr aphy 05/21/2019 8:37 PM RENTAL CLERK Impressions 05/23/2019 7:07 AM CDT 1. ??Highly comminuted and widely displaced fracture of the distal left femur with extension into the condylar and intercondylar eminence. ?? 2. ??Large left lipohemarthrosis and soft tissue gas within the left thigh compatible with open fracture. Dictated by: Val A Hernandez, M.D. The radiology attending physician has personally reviewed this study, and had reviewed and/or edited this written report and agrees with it. Electronically signed by: Jorge Hoffmann M.D. Narrative 05/23/2019 7:07 AM CDT EXAMINATION: XR FEMUR LEFT 2 OR MORE VIEWS, XR PELVIS 1 OR 2 VIEWS, XR KNEE LEFT 1 OR 2 VIEWS HISTORY: Mechanical fall COMPARISON: None. FINDINGS: Left knee: There is a highly comminuted and severely displaced fracture of the distal left femur with at least one shaft width posterior displacement of the distal fracture fragment. ??Fractures extend through both the condylar and intercondylar prominence. ??There is an osseous fragment which is oriented perpendicular to the femoral shaft within the region of the quadriceps tendon, it is unclear if this is part of the the patella or an additional femur fracture fragment. There is a large lipohemarthrosis. ??There is soft tissue gas within the left thigh. ??There is no fracture appreciated in the proximal tibia or fibula. Left femur: There is no proximal femur fracture. ??The left hip joint space is normal. ??There is mottled lucency overlying the posterior and lateral left thigh likely reflects soft tissue gas. ?? Pelvis: Single frontal view of the pelvis is obtained. ??There is no displaced pelvic fracture. ??There is degenerative change in the lower lumbar spine. ??Sacroiliac joints are normal and symmetric. ??There are phleboliths overlying the pelvis. Procedure Note Jorge Hoffmann MD - 05/23/2019 EXAMINATION: XR FEMUR LEFT 2 OR MORE VIEWS, XR PELVIS 1 OR 2 VIEWS, XR KNEE LEFT 1 OR 2 VIEWS HISTORY: Mechanical fall COMPARISON: None. FINDINGS: Left knee: There is a highly comminuted and severely displaced fracture of the distal left femur with at least one shaft width posterior displacement of the distal fracture fragment. Fractures extend through both the condylar and intercondylar prominence. There is an osseous fragment which is oriented perpendicular to the femoral shaft within the region of the quadriceps tendon, it is unclear if this is part of the the patella or an additional femur fracture fragment. There is a large lipohemarthrosis. There is soft tissue gas within the left thigh. There is no fracture appreciated in the proximal tibia or fibula. Left femur: There is no proximal femur fracture. The left hip joint space is normal. There is mottled lucency overlying the posterior and lateral left thigh likely reflects soft tissue gas. Pelvis: Single frontal view of the pelvis is obtained. There is no displaced pelvic fracture. There is degenerative change in the lower lumbar spine. Sacroiliac joints are normal and symmetric. There are phleboliths overlying the pelvis. IMPRESSION: 1. Highly comminuted and widely displaced fracture of the distal left femur with extension into the condylar and intercondylar eminence. 2. Large left lipohemarthrosis and soft tissue gas within the left thigh compatible with open fracture. Dictated by: Val Ng M.D. The radiology attending physician has personally reviewed this study, and had reviewed and/or edited this written report and agrees with it. Electronically signed by: Jorge Hoffmann M.D. Alessandro Malone MD IMG XR PROCEDURES Final Result * XR Femur Left 2 or More Views (05/21/2019 8:25 PM RENTAL CLERK) Anatomical Region Laterality Modality Lower Extremities, Thigh, Femur Left Computed Radiography 05/21/2019 8:37 PM RENTAL CLERK Impressions 05/23/2019 7:07 AM CDT 1. ??Highly comminuted and widely displaced fracture of the distal left femur with extension into the condylar and intercondylar eminence. ?? 2. ??Large left lipohemarthrosis and soft tissue gas within the left thigh compatible with open fracture. Dictated by: Val Ng M.D. The radiology attending physician has personally reviewed this study, and had reviewed and/or edited this written report and agrees with it. Electronically signed by: Jorge Hoffmann M.D. Narrative 05/23/2019 7:07 AM CDT EXAMINATION: XR FEMUR LEFT 2 OR MORE VIEWS, XR PELVIS 1 OR 2 VIEWS, XR KNEE LEFT 1 OR 2 VIEWS HISTORY: Mechanical fall COMPARISON: None. FINDINGS: Left knee: There is a highly comminuted and severely displaced fracture of the distal left femur with at least one shaft width posterior displacement of the distal fracture fragment. ??Fractures extend through both the condylar and intercondylar prominence. ??There is an osseous fragment which is oriented perpendicular to the femoral shaft within the region of the quadriceps tendon, it is unclear if this is part of the the patella or an additional femur fracture fragment. There is a large lipohemarthrosis. ??There is soft tissue gas within the left thigh. ??There is no fracture appreciated in the proximal tibia or fibula. Left femur: There is no proximal femur fracture. ??The left hip joint space is normal. ??There is mottled lucency overlying the posterior and lateral left thigh likely reflects soft tissue gas. ?? Pelvis: Single frontal view of the pelvis is obtained. ??There is no displaced pelvic fracture. ??There is degenerative change in the lower lumbar spine. ??Sacroiliac joints are normal and symmetric. ??There are phleboliths overlying the pelvis. Procedure Note Jorge Hoffmann MD - 05/23/2019 EXAMINATION: XR FEMUR LEFT 2 OR MORE VIEWS, XR PELVIS 1 OR 2 VIEWS, XR KNEE LEFT 1 OR 2 VIEWS HISTORY: Mechanical fall COMPARISON: None. FINDINGS: Left knee: There is a highly comminuted and severely displaced fracture of the distal left femur with at least one shaft width posterior displacement of the distal fracture fragment. Fractures extend through both the condylar and intercondylar prominence. There is an osseous fragment which is oriented perpendicular to the femoral shaft within the region of the quadriceps tendon, it is unclear if this is part of the the patella or an additional femur fracture fragment. There is a large lipohemarthrosis. There is soft tissue gas within the left thigh. There is no fracture appreciated in the proximal tibia or fibula. Left femur: There is no proximal femur fracture. The left hip joint space is normal. There is mottled lucency overlying the posterior and lateral left thigh likely reflects soft tissue gas. Pelvis: Single frontal view of the pelvis is obtained. There is no displaced pelvic fracture. There is degenerative change in the lower lumbar spine. Sacroiliac joints are normal and symmetric. There are phleboliths overlying the pelvis. IMPRESSION: 1. Highly comminuted and widely displaced fracture of the distal left femur with extension into the condylar and intercondylar eminence. 2. Large left lipohemarthrosis and soft tissue gas within the left thigh compatible with open fracture. Dictated by: Val Ng M.D. The radiology attending physician has personally reviewed this study, and had reviewed and/or edited this written report and agrees with it. Electronically signed by: Jorge Hoffmann M.D. Alessandro Malone MD IMG XR PROCEDURES Final Result * XR Chest 1 View (05/21/2019 8:24 PM RENTAL CLERK) Anatomical Region Laterality Modality Body, Chest N/A Computed Radiogr aphy 05/21/2019 8:29 PM RENTAL CLERK Impressions 05/23/2019 7:07 AM CDT Comparison is made to prior study dated ??05/03/2010. There is a small nodular opacity in the right midlung which was present in 2010. ??Lungs are otherwise clear without consolidation or pulmonary edema. ??No pleural effusion or pneumothorax. ??There is new moderate cardiomegaly. ??Mediastinal contours are within normal limits. Dictated by: Val Ng M.D. The radiology attending physician has personally reviewed this study, and had reviewed and/or edited this written report and agrees with it. Electronically signed by: Jorge Hoffmann M.D. Narrative 05/23/2019 7:07 AM CDT EXAMINATION: 1 view chest radiograph Procedure Note Jorge Hoffmann MD - 05/23/2019 EXAMINATION: 1 view chest radiograph IMPRESSION: Comparison is made to prior study dated 05/03/2010. There is a small nodular opacity in the right midlung which was present in 2010. Lungs are otherwise clear without consolidation or pulmonary edema. No pleural effusion or pneumothorax. There is new moderate cardiomegaly. Mediastinal contours are within normal limits. Dictated by: Val Ng M.D. The radiology attending physician has personally reviewed this study, and had reviewed and/or edited this written report and agrees with it. Electronically signed by: Jorge Hoffmann M.D. Alessandro Malone MD IMG XR PROCEDURES Final Result * (ABNORMAL) Differential, auto (05/21/2019 7:43 PM RENTAL CLERK) Neutrophil abs 7.8(H) 1.7 - 6.5 K/cumm [facility] Imm gran abs 0.0 0.0 - 0.1 K/cumm [facility] Lymphocyte abs 1.4 0.8 - 3.3 K/cumm [facility] Monocyte abs 0.6 0.2 - 0.8 K/[facility]umm [facility] Eosinophil abs 0.0 0.0 - 0.5 K/cumm [facility] Basophil abs 0.0 0.0 - 0.1 K/cumm [facility] Neutrophil pct 78.3 % [facility] Comment: Interpretive Data Percent cell count reference ranges are not reported, since discordance with absolute values may lead to misinterpretation of CBC data. Current Interpretive Data was last revised on 2017. Imm gran pct 0.5 % [facility] Comment: Interpretive Data Percent cell count reference ranges are not reported, since discordance with absolute values may lead to misinterpretation of CBC data. Current Interpretive Data was last revised on 2017. Lymphocyte pct 14.2 % [facility] Comment: Interpretive Data Percent cell count reference ranges are not reported, since discordance with absolute values may lead to misinterpretation of CBC data. Current Interpretive Data was last revised on 2017. Monocyte pct 6.6 % [facility] Comment: Interpretive Data Percent cell count reference ranges are not reported, since discordance with absolute values may lead to misinterpretation of CBC data. Current Interpretive Data was last revised on 2017. Eosinophil pct 0.1 % [facility] Comment: Interpretive Data Percent cell count reference ranges are not reported, since discordance with absolute values may lead to misinterpretation of CBC data. Current Interpretive Data was last revised on 2017. [facility]ophil pct 0.3 % [facility] Comment: Interpretive Data Percent cell count reference ranges are not reported, since discordance with absolute values may lead to misinterpretation of CBC data. Current Interpretive Data was last revised on 2017. Blood specimen (specimen) 05/21/2019 7:43 PM RENTAL CLERK 05/21/2019 8:08 PM RENTAL CLERK us Alessandro Malone MD LAB BLOOD ORDERABLES Fi nal Result Performing Organization Address [facility] [place] [address] * aPTT (05/21/2019 7:43 PM RENTAL CLERK) aPTT 32 25 - 37 sec [facility] Comment: Interpretive data Heparin therapeutic range: 60-90 seconds Range based on correlation with therapeutic heparin activity range of 0.3-0.7 units/ml. Current interpretive data was last revised on 2019. Blood specimen (specimen) 05/21/2019 7:43 PM RENTAL CLERK 05/21/2019 7:52 PM RENTAL CLERK Narrative [facility] - 05/21/2019 8:23 PM RENTAL CLERK THE COLLECTION LOCATION IS [address] Result [facility] BLOOD ORDERABLES Fi nal Result Performing Organization Address [facility] de Phone Number [facility] [place] [place] [address] * (ABNORMAL) Protime-INR (05/21/2019 7:43 PM RENTAL CLERK) PT 33.0(H) 8.6 - 13.0 sec [facility] INR 3.0(H) 0.8 - 1.2 [facility] Comment: Interpretive data Oral anticoagulant therapeutic ranges: Venous thromboembolism prophylaxis or treatment: 2.0-3.0 CARDIOLOGY Standard range: 2.0-3.0 High-intensity range: 2.5-3.5 Refer to indication-specific guidelines for appropriate target ranges for prosthetic heart valve replacement. Current interpretive data was last revised on 2019. Blood specimen (specimen) 05/21/2019 7:43 PM RENTAL CLERK 05/21/2019 7:52 PM RENTAL CLERK Narrative [facility] - 05/21/2019 8:23 PM RENTAL CLERK THE COLLECTION LOCATION IS [address] Result [facility] Alessandro Malone MD LAB BLOOD ORDERABLES Fi nal Result Performing Organization Address [facility] [place] [address] * Type and screen (05/21/2019 7:43 PM RENTAL CLERK) Pathologist [facility] ABO Rh O Positive [facility] Gian, indirect Negative [facility] Blood specimen (specimen) 05/21/2019 7:43 PM RENTAL CLERK 05/21/2019 10:01 PM RENTAL CLERK Narrative [facility] - 05/21/2019 10:57 PM RENTAL CLERK Has the patient had Daratumumab (Darzalex) in the past 6 months?->Unknown THE COLLECTION LOCATION IS [address] Alessandro Malone MD LAB BLOOD BANK TEST ORD ERABLES Final Result Performing Organization Address [facility] de Phone Number [facility] [place] [address] * (ABNORMAL) Comprehensive metabolic panel (05/21/2019 7:43 PM RENTAL CLERK) [facility] Sodium 137 135 - 145 mmol/L [facility] Potassium, pl 3.8 3.3 - 4.9 mmol/L [facility] Chloride 103 97 - 110 mmol/L [facility] CO2 25 22 - 32 mmol/L [facility] Anion gap 9 2 - 15 mmol/L [facility] BUN 17 8 - 25 mg/dL [facility] Creatinine 0.53(L) 0.60 - 1.10 mg/dL [facility] Glucose 180 70 - 199 mg/dL [facility] Comment: Interpretive Data Fasting glucose >/= 126 [...] 2017. Calcium 9.2 8.5 - 10.3 mg/dL [facility] Bilirubin, total 1.0 0.1 - 1.2 mg/dL [facility] Protein, pl 7.1 6.5 - 8.5 g/dL [facility] Albumin 3.6 3.5 - 5.0 g/dL [facility] Alk phos 78 40 - 130 Units/L [facility] ALT 38 7 - 45 Units/L [facility] AST 64(H) 10 - 45 Units/L [facility] Blood specimen (specimen) 05/21/2019 7:43 PM RENTAL CLERK 05/21/2019 8:07 PM RENTAL CLERK Narrative [facility] - 05/21/2019 8:34 PM RENTAL CLERK THE COLLECTION LOCATION IS [address] Alessandro Nahun Malone MD LAB BLOOD ORDERABLES Fi nal Result [facility] Department [place] [address] * (ABNORMAL) CBC with auto differential (05/21/2019 7:43 PM RENTAL CLERK) WBC 9.9 3.8 - 9.9 K/cumm [facility] Hgb 12.0 11.9 - 15.5 g/dL [facility] Hct 36.7 35.6 - 45.5 % [facility] Plt 259 150 - 400 K/cumm [facility] MPV 10.3 9.1 - 12.3 fL [facility] RBC 3.82(L) 3.90 - 5.20 M/cumm [facility] MCV 96.1 81.3 - 96.4 fL [facility] MCH 31.4 27.1 - 33.3 pg [facility] MCHC 32.7 32.3 - 35.7 g/dL [facility] RDW CV 13.7 11.1 - 14.9 % [facility] RDW SD 48.4(H) 35.7 - 48.1 fL [facility] NRBC abs 0.00 0.00 - 0.01 K/cumm [facility] Blood specimen (specimen) 05/21/2019 7:43 PM RENTAL CLERK 05/21/2019 8:08 PM RENTAL CLERK Narrative [facility] - 05/21/2019 8:16 PM RENTAL CLERK THE COLLECTION LOCATION IS [address] us Alessandro Malone MD LAB BLOOD ORDERABLES Fi nal Result [facility] [place] [address] * (ABNORMAL) ECG 12-LEAD (05/21/2019 7:40 PM RENTAL CLERK) Narrative [facility] - 05/21/2019 7:40 PM RENTAL CLERK Berny Carrera MD ? 05/21/2019 ??7:40 PM ECG 12 lead Date/Time: 05/21/2019 7:40 PM Performed by: Berny Carrera MD Authorized by: Alessandro Malone MD Rate: ??ECG rate: ??127 ??ECG rate assessment: tachycardic ?? Rhythm: ??Rhythm: atrial fibrillation ?? Ectopy: ??Ectopy: none ?? QRS: ??QRS axis: ??Normal ??QRS intervals: ??Normal Conduction: ??Conduction: abnormal ?? ST segments: ??ST segments: ??Non-specific T waves: ??T waves: non-specific ?? Previous ECG: ??Previous ECG: ??Unavailable Interpretation: ??Interpretation: abnormal ?? Recommended Follow-up: ??Recommended follow up: further workup in the ED ?? Procedure Note Berny Carrera MD - 05/21/2019 7:40 PM CST Procedure ECG 12 lead Date/Time: 05/21/2019 7:40 PM Performed by: Berny Carrera MD Authorized by: Alessandro Malone MD Rate: ECG rate: 127 ECG rate assessment: tachycardic Rhythm: Rhythm: atrial fibrillation Ectopy: Ectopy: none QRS: QRS axis: Normal QRS intervals: Normal Conduction: Conduction: abnormal ST segments: ST segments: Non-specific T waves: T waves: non-specific Previous ECG: Previous ECG: Unavailable Interpretation: Interpretation: abnormal Recommended Follow-up: Recommended follow up: further workup in the ED Berny Carrera MD 05/21/191939 Alessandro Malone MD ECG ORDERABLES Final R esult Performing Organization Address [facility] Co de Phone Number [facility] * XR Outside Reference (05/21/2019 7:33 PM RENTAL CLERK) Impressions [facility] - 05/21/2019 7:33 PM RENTAL CLERK These images are for Reference purposes only and have not been reviewed by [facility] Radiology. ??There will be no report generated by a [facility] Radiologist. Narrative [facility] - 05/21/2019 7:33 PM RENTAL CLERK EXAMINATION: ??Images For Reference Purposes Only Alessandro Malone MD IMG XR PROCEDURES Final Result Performing Organization Address [facility] de Phone Number [email or web address] * POCT glucose (05/21/2019 7:27 PM RENTAL CLERK) Glucose, POC 171 70 - 199 mg/dL [facility] Blood specimen (specimen) 05/21/2019 7:27 PM RENTAL CLERK 05/21/2019 7:27 PM RENTAL CLERK Notinfile Unknown LAB POCT ORDERABLES - DEVICE F inal Result Performing Organization Address [facility] de Phone Number [facility] Department [place] [address] documented in this encounter Visit Diagnoses Diagnosis Open fracture of left distal femur (CMS/HCC) ([facility])- Primary Closed fracture of distal end of left femur, unspecified fracture morphology, initial encounter ([facility]) Other type I or II open fracture of distal end of left femur, initial encounter ([facility]) Closed displaced comminuted fracture of shaft of left femur ([facility]) documented in this encounter Admitting Diagnoses Diagnosis Open fracture of left distal femur (CMS/HCC) (H[facility]) Closed displaced comminuted fracture of shaft of left femur (HCC) documented in this encounter Administered Medications Inactive Administered Medications - up to 3 most recent administrations Medication Order MAR Action Action Date Dose Rate Site acetaminophen (TYLENOL) tablet 1,000 mg 1,000 mg, oral, Every 6 hours scheduled, First dose on 05/22/19 at 0045 Given 05/27/2019 11:57 AM CDT 1,000 mg Given 05/27/2019 6:18 AM CDT 1,000 mg Given 05/26/2019 11:13 PM CDT 1,000 mg amLODIPine (NORVASC) tablet 5 mg 5 mg, oral, Daily, First dose on 05/22/19 at 0900 Given 05/27/2019 8:13 AM CDT 5 mg Given 05/26/2019 9:28 AM CDT 5 mg Given 05/25/2019 7:55 AM CDT 5 mg carvediloL (COREG) tablet 25 mg 25 mg, oral, 2 times daily, First dose on 05/21/19 at 2222 Given 05/27/2019 8:14 AM CDT 25 mg Given 05/26/2019 9:38 PM CDT 25 mg Given 05/26/2019 9:28 AM CDT 25 mg ceFAZolin (ANCEF) 2,000 mg/20 mL in sterile water (premix) 2,000 mg 2,000 mg, intravenous, at 400 mL/hr, Administer over 3 Minutes, Once, On 05/21/19 at 1947, For 1 dose, Indications: Skin/Soft Tissue InfectionIndications:Skin/Soft Tissue Infection New Bag 05/21/2019 8:37 PM RENTAL CLERK 2,000 mg 400 mL/hr ceFAZolin (ANCEF) 2,000 mg/20 mL in sterile water (premix) 2,000 mg 2,000 mg, intravenous, at 400 mL/hr, Administer over 3 Minutes, Every 8 hours scheduled, First dose on 05/22/19 at 0600, Indications: Bone/Joint InfectionIndications:Bone/Joint Infection New Bag 05/25/2019 6:12 AM CDT 2,000 mg 400 mL/hr New Bag 05/24/2019 9:22 PM CDT 2,000 mg 400 mL/hr New Bag 05/24/2019 1:37 PM CDT 2,000 mg 400 mL/hr ceFAZolin (ANCEF) 2,000 mg/20 mL in sterile water (premix) 2,000 mg 2,000 mg, intravenous, at 400 mL/hr, Administer over 3 Minutes, Every 8 hours, First dose on Thu05/25/19 at 2000, For 2 doses, Beginning 8 hours after last taya-operative dose., Indications: Prophylaxis, SurgicalIndications:Prophylaxis, Surgical New Bag 05/26/2019 4:28 AM CDT 2,000 mg 400 mL/hr New Bag 05/25/2019 9:05 PM CDT 2,000 mg 400 mL/hr dextrose (D10W) 10% bolus 250 mL 250 mL, intravenous, at 1,000 mL/hr, Administer over 15 Minutes, Every 15 min PRN, blood glucose less than 70 mg/dL and UNABLE to swallow/take PO glucose/juice., Starting on Thu05/22/19 at 0011, After treatment for hypoglycemia, recheck BG followed [...] glucose less than 70 mg/dL, Starting on Thu05/22/19 at 0011, If patient is alert and able to [...] Call MD for each episode of hypoglycemia. RIGGING WORKER STATES GLUTOSE-15 CONTAINS GLUCOSE 40% W/W (50% W/V), Indications: hypoglycemic disorderIndications:hypoglycemic disorder dextrose 5% and sodium chloride 0.45% with potassium chloride 20 mEq/L infusion (premix) 100 mL/hr, intravenous, Continuous, Starting on Thu05/22/19 at 0045 New Bag 05/22/2019 12:26 AM RENTAL CLERK 100 mL/hr 100 mL/hr DULoxetine DR (CYMBALTA) extended release capsule 60 mg 60 mg, oral, Daily, First dose on Thu05/22/19 at 0900, Capsule may be opened and contents mixed with applesauce or apple juice ONLY. Do not crush, chew, cut, dissolve, open or otherwise manipulate tablet/capsule. Given 05/27/2019 8:14 AM CDT 60 mg Given 05/26/2019 9:29 AM CDT 60 mg Given 05/25/2019 7:55 AM CDT 60 mg enoxaparin (LOVENOX) syringe 30 mg 30 mg, subcutaneous, Every 12 hours scheduled, First dose on Thu05/22/19 at 2100, Indications: Deep Vein Thrombosis Prevention, On hold since Thu05/25/2019 at 0057 until manually unheldIndications:Deep Vein Thrombosis Prevention Given 05/24/2019 9:04 PM CDT 30 mg Left Upper Abdomen Given 05/24/2019 7:56 AM CDT 30 mg Ri ght Lower Abdomen Given 05/23/2019 9:38 PM CDT 30 mg Le ft Upper Abdomen famotidine (PEPCID) tablet 20 mg 20 mg, oral, 2 times daily, First dose on Thu05/25/19 at 2100, Indications: HeartburnIndications:Heartburn Given 05/27/2019 8:13 AM CDT 20 mg Given 05/26/2019 9:33 PM CDT 20 mg Given 05/26/2019 9:28 AM CDT 20 mg HYDROmorphone (DILAUDID) injection 0.2 mg 0.2 mg, intravenous, Administer over 2 Minutes, Every 3 hours PRN, 1st line for pain, Starting on Thu05/25/19 at 1723, Indications: PainIndications:Pain Given 05/26/2019 9:29 AM CDT 0.2 mg HYDROmorphone (DILAUDID) injection 0.4 mg 0.4 mg, intravenous, Administer over 2 Minutes, Every 10 min PRN, 2nd line for pain, Starting on Thu05/22/19 at 0916, Phase I, May administer 10 mintes after 2nd dose of 1st line analgesic agent for uncontrolled or increasing pain. Revert to 1st line dose if POSS of 3. Notify Anesthesiologist if total PACU dose reaches 2 mg and pain score 5/10 or more., Indications: PainIndications:Pain Given 05/22/2019 9:37 AM CDT 0.4 mg Given 05/22/2019 9:22 AM CDT 0.4 mg insulin lispro (HumaLOG) injection 1-2 Units 1-2 Units, subcutaneous, Every 4 hours scheduled, First dose on Thu05/22/19 at 0045, Blood Sugar Low Dose NPO patients 200 or less No Insulin 201 - 250 1 unit 251 - 299 2 units Greater than 299 Call MD for hyperglycemia management instructions Do NOT hold for NPO status., Indications: Diabetes MellitusIndications:Diabetes Mellitus Given 05/27/2019 11:57 AM CDT 1 Units Left Upper Arm Given 05/26/2019 10:09 PM CDT 1 Units L eft Lower Abdomen Given 05/26/2019 11:47 AM CDT 1 Units L eft Lower Abdomen insulin lispro (HumaLOG) injection 1-3 Units 1-3 Units, subcutaneous, Once as needed, high blood sugar, Starting on Thu05/25/19 at 1552, For 1 dose, Phase I, Blood Sugar Low Dose - Surgical/Post-Op ICU 175 or less No Insulin 176 - 200 1 unit 201 - 250 2 units 251 - 299 3 units Greater than 299 Call MD for hyperglycemia management instructions Do NOT hold for NPO status., Indications: Diabetes MellitusIndications:Diabetes Mellitus Given 05/25/2019 4:03 PM CDT 2 Units Left Lower Abdomen ketorolac (TORADOL) injection 15 mg 15 mg, intravenous, Every 6 hours, First dose on Thu05/25/19 at 1800, For 2 doses, For Adult IV push, administer over 15 seconds, Indications: PainIndications:Pain Given 05/25/2019 11:02 PM CDT 15 mg levothyroxine (SYNTHROID) tablet 25 mcg 25 mcg, oral, Daily, First dose on Thu05/22/19 at 0900, Administer on an empty stomach, preferably 30 minutes before breakfast. Take 4 hours apart from antacids, iron and calcium products. Given 05/27/2019 8:14 AM CDT 25 mcg Given 05/26/2019 9:28 AM CDT 25 mcg Given 05/25/2019 7:55 AM CDT 25 mcg losartan (COZAAR) tablet 100 mg 100 mg, oral, Daily, First dose on Thu05/22/19 at 0900 Given 05/27/2019 8:14 AM CDT 100 mg Given 05/26/2019 9:29 AM CDT 100 mg Given 05/25/2019 7:55 AM CDT 100 mg lovastatin (MEVACOR) tablet 10 mg 10 mg, oral, Nightly, First dose on Thu05/22/19 at 2100, Take with food Given 05/26/2019 9:33 PM CDT 10 mg Given 05/25/2019 9:05 PM CDT 10 mg Given 05/24/2019 9:49 PM CDT 10 mg metoprolol (LOPRESSOR) injection 5 mg 5 mg, intravenous, Administer over 1 Minutes, Once, On Thu05/27/19 at 0445, For 1 dose Given 05/27/2019 5:25 AM CDT 5 mg metoprolol (LOPRESSOR) tablet 12.5 mg 12.5 mg, oral, Once, On Thu05/25/19 at 0130, For 1 dose Given 05/25/2019 1:00 AM CDT 12.5 mg metoprolol (LOPRESSOR) tablet 12.5 mg 12.5 mg, oral, Once, On Thu05/25/19 at 0400, For 1 dose Given 05/25/2019 3:35 AM CDT 12.5 mg morphine injection 4 mg 4 mg, intravenous, Administer over 4 Minutes, Every 3 hours PRN, 1st line for pain, Starting on 05/21/19 at 1933 Given 05/21/2019 10:56 PM RENTAL CLERK 4 mg Given 05/21/2019 7:52 PM RENTAL CLERK 4 mg ondansetron (ZOFRAN) injection 4 mg 4 mg, intravenous, Administer over 2 Minutes, Every 4 hours PRN, nausea, vomiting, Starting on 05/21/19 at 1936 Given 05/21/2019 7:52 PM RENTAL CLERK 4 mg ondansetron (ZOFRAN) injection 4 mg 4 mg, intravenous, Administer over 2 Minutes, Every 6 hours PRN, nausea, vomiting, if not tolerating PO, Starting on Thu05/25/19 at 1723, Indications: nausea and vomitingIndications:nausea and vomiting ondansetron ODT (ZOFRAN-ODT) disintegrating tablet 4 mg 4 mg, oral, Every 6 hours PRN, nausea, vomiting, Starting on Thu05/25/19 at 1723, Indications: nausea and vomitingIndications:nausea and vomiting oxyCODONE (ROXICODONE) tablet 5 mg 5 mg, oral, Every 4 hours PRN, 1st line for pain, Starting on 05/22/19 at 0011, Indications: PainIndications:Pain Given 05/26/2019 1:45 AM CDT 5 mg Given 05/25/2019 6:15 PM CDT 5 mg Given 05/24/2019 10:11 AM CDT 5 mg oxyCODONE (ROXICODONE) tablet 5 mg 5 mg, oral, Every 4 hours, First dose (after last modification) on Yuliana 05/26/19 at 0615, Indications: PainIndications:Pain Given 05/27/2019 2:26 PM CDT 5 mg Given 05/27/2019 10:18 AM CDT 5 mg Given 05/27/2019 6:18 AM CDT 5 mg phytonadione (VITAMIN K1) 10 mg in dextrose 5% 50 mL IVPB 10 mg, intravenous, at 153 mL/hr, Administer over 20 Minutes, Once, On 05/21/19 at 2329, For 1 dose, Protect from light., 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 Maximum rate is 500 mL/hr. 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:Anticoagul ant-Induced Prothrombin Deficiency New Bag 05/22/2019 12:25 AM RENTAL CLERK 2,242 Units ramelteon (ROZEREM) tablet 8 mg 8 mg, oral, Nightly PRN, sleep, Starting on Thu05/24/19 at 2356, Indications: Sleep-Onset InsomniaIndications:Sleep-Onset Insomnia Given 05/25/2019 12:01 AM CDT 8 mg senna-docusate (PERICOLACE) 8.6-50 mg per tablet 2 tablet 2 tablet, oral, 2 times daily, First dose on Thu05/25/19 at 2100, Hold for diarrhea., Indications: constipationIndications:constipa tion Given 05/27/2019 8:13 AM CDT 2 tablets Given 05/26/2019 9:32 PM CDT 2 tablets Given 05/26/2019 9:28 AM CDT 2 tablets sodium chloride 0.9% flush 0.5-20 mL 0.5-20 mL, intra-catheter, Every 8 hours scheduled, First dose on Thu05/22/19 at 0045, Flush volume based on line type and size. Given 05/25/2019 9:06 PM CDT 10 mL Given 05/25/2019 6:13 AM CDT 10 mL Given 05/24/2019 9:05 PM CDT 10 mL sodium chloride 0.9% flush 0.5-20 mL 0.5-20 mL, intra-catheter, Every 8 hours scheduled, First dose on Thu05/25/19 at 2200, Flush volume based on line type and size. Given 05/27/2019 2:26 PM CDT 10 mL Given 05/27/2019 5:29 AM CDT 10 mL Given 05/26/2019 9:39 PM CDT 10 mL sodium chloride 0.9% infusion 100 mL/hr, intravenous, Continuous, Starting on Thu05/25/19 at 1500, Phase I & Post-op Floor New Bag 05/26/2019 4:28 AM CDT 100 mL/hr 100 mL/hr New Bag 05/25/2019 3:23 PM CDT 100 mL/hr 100 mL/hr vancomycin 1500 mg/515 mL in sodium chloride 0.9% (premix) 1,500 mg 1,500 mg, intravenous, Administer over 90 Minutes, Once, On Thu05/25/19 at 1100, For 1 dose, Pre-Op, Administer within 120 minutes of incision., Indications: Prophylaxis, SurgicalIndications:Prophylaxis, Surgical New Bag 05/25/2019 10:21 AM CDT 1,500 mg vancomycin 1500 mg/515 mL in sodium chloride 0.9% (premix) 1,500 mg 1,500 mg, intravenous, Administer over 90 Minutes, Once, On Thu05/25/19 at 2230, For 1 dose, Administer 12 hours after pre-procedure dose., Indications: Prophylaxis, SurgicalIndications:Prophylaxis, Surgical New Bag 05/25/2019 11:02 PM CDT 1,500 mg warfarin (COUMADIN) tablet 2 mg 2 mg, oral, Daily (for warfarin), First dose on Yuliana 05/26/19 at 1800, Target INR: 2 - 3, Indications: VTE ProphylaxisIndications:VTE Prophylaxis Given 05/26/2019 6:20 PM CDT 2 mg documented in this encounter Discontinued Medications Medication Sig Discontinue Reason Start Date End Da te lovastatin (MEVACOR) 10 mg tablet Take 10 mg by mouth nightly Stop Taking at Discharge 05/27/2019 warfarin (COUMADIN) 1 mg tablet 1-2 tablets daily, only when directed, based on INR results Stop Taking at Discharge 04/18/2019 05/27/2019 documented as of this encounter Active and Recently Administered Medications Times are shown in CDT. Scheduled Medication Order 05/25/2019 05/26/2019 05/27/2019 acetaminophen (TYLENOL) tablet 1,000 mg 1,000 mg, oral, Every 6 hours scheduled, First dose on 05/22/19 at 0045 0002 (Given - Provider: Mary Lamar RN)0612 (Given - Provider: Mary Lamar RN)1012 (MAR Hold - Provider: Automatic Transfer Provider - Reason: Patient not available)1200 (Dose Auto Held - Provider: Automatic Transfer Provider)1723 (MAR Unhold - Provider: Ryann Mcqueen RN)1814 (Given - Provider: Ryann Mcqueen, ARMANI)2302 (Given - Provider: Moriah Hall, ARMANI) 0609 (Not Given - Provider: Moriah Hall RN - Reason: Medication not available)1147 (Given - Provider: Gen Oleary, ARMANI)1820 (Given - Provider: Gen Oleary, ARMANI)2313 (Given - Provider: Denisa Jean, ARMANI) 0618 (Given - Provider: Denisa Galdamez RN)1157 (Given - Provider: Kendy Nicole RN) amLODIPine (NORVASC) tablet 5 mg 5 mg, oral, Daily, First dose on 05/22/19 at 0900 0755 (Given - Provider: Holly Leonard RN)1012 (MAR Hold - Provider: Automatic Transfer Provider - Reason: Patient not available)1723 (MAY Unhold - Provider: Ryann Mcqueen, ARMANI) 0928 (Given - Provider: Gen Oleary, ARMANI) 0813 (Given - Provider: Kendy Nicole, ARMANI) carvediloL (COREG) tablet 25 mg 25 mg, oral, 2 times daily, First dose on Thu05/21/19 at 2222 0755 (Given - Provider: Holly Leonard RN)1012 (MAR Hold - Provider: Automatic Transfer Provider - Reason: Patient not available)1723 (MAY Unhold - Provider: Ryann Mcqueen, ARMANI)2249 (Not Given - Provider: Moriah Hall RN - Reason: Contraindicated) 0928 (Given - Provider: Gen Oleary RN)2138 (Given - Provider: Julissa Eaton RN) 0814 (Given - Provider: Kendy Nicole, ARMANI) ceFAZolin (ANCEF) 2,000 mg/20 mL in sterile water (premix) 2,000 mg (CANCELED) 2,000 mg, intravenous, at 400 mL/hr, Administer over 3 Minutes, Every 8 hours scheduled, First dose on Thu05/22/19 at 0600, Indications: Bone/Joint Infection 0612 (New Bag - Provider: Mary Lamar RN) ceFAZolin (ANCEF) 2,000 mg/20 mL in sterile water (premix) 2,000 mg (COMPLETED) 2,000 mg, intravenous, at 400 mL/hr, Administer over 3 Minutes, Once, On Thu05/25/19 at 1100, For 1 dose, Intra-Op, Administer within 60 minutes of incision., Indications: Prophylaxis, Surgical 1157 (Given - Provider: Jina Villalobos CRNA) ceFAZolin (ANCEF) 2,000 mg/20 mL in sterile water (premix) 2,000 mg (COMPLETED) 2,000 mg, intravenous, at 400 mL/hr, Administer over 3 Minutes, Every 8 hours, First dose on Thu05/25/19 at 2000, For 2 doses, Beginning 8 hours after last taya-operative dose., Indications: Prophylaxis, Surgical 2105 (New Bag - Provider: Moriah Hall, ARMANI) 0428 (New Bag - Provider: Moriah Hall RN) DULoxetine DR (CYMBALTA) extended release capsule 60 mg 60 mg, oral, Daily, First dose on Thu05/22/19 at 0900, Capsule may be opened and contents mixed with applesauce or apple juice ONLY. Do not crush, chew, cut, dissolve, open or otherwise manipulate tablet/capsule. 0755 (Given - Provider: Holly Leonard RN)1012 (MAR Hold - Provider: Automatic Transfer Provider - Reason: Patient not available)1723 (MAR Unhold - Provider: Ryann Mcqueen RN) 0929 (Given - Provider: Gen Oleary, ARMANI) 0814 (Given - Provider: Kendy Nicole, ARMANI) EPINEPHrine 0.15 mg in bacteriostatic 0.9% sodium chloride 30 mL solution (COMPLETED) 60 mL, topical, Once, On Thu05/25/19 at 1100, For 1 dose, Intra-Op 1100 (Due)1302 (Given - Provider: Kaveh Charles MD - Comment: epi soaked sponge used in the femur) famotidine (PEPCID) tablet 20 mg 20 mg, oral, 2 times daily, First dose on Thu05/25/19 at 2100, Indications: Heartburn 210 (Given - Provider: Moriah Hall RN) 0928 (Given - Provider: Gen Oleary, ARMANI)2133 (Given - Provider: Julissa Eaton RN) 0813 (Given - Provider: Kendy Nicole, ARMANI) insulin lispro (HumaLOG) injection 1-2 Units 1-2 Units, subcutaneous, Every 4 hours scheduled, First dose on Thu05/22/19 at 0045, Blood Sugar Low Dose NPO patients 200 or less No Insulin 201 - 250 1 unit 251 - 299 2 units Greater than 299 Call MD for hyperglycemia management instructions Do NOT hold for NPO status., Indications: Diabetes Mellitus 0003 (Not Given - Provider: Mary Lamar RN - Reason: Order parameters not met)0336 (Not Given - Provider: Mary Lamar RN - Reason: Order parameters not met)0755 (Not Given - Provider: Holly Leonard RN - Reason: Order parameters not met)1012 (MAR Hold - Provider: Automatic Transfer Provider - Reason: Patient not available)1200 (Dose Auto Held - Provider: Automatic Transfer Provider)1600 (Dose Auto Held - Provider: Automatic Transfer Provider)1723 (MAR Unhold - Provider: Ryann Mcqueen, ARMANI)2108 (Not Given - Provider: Moriah Hall RN - Reason: Contraindicated)2304 (Not Given - Provider: Moriah Hall RN - Reason: Contraindicated) 0610 (Not Given - Provider: Moriah Hall RN - Reason: Contraindicated)0928 (Given - Provider: Gen Oleary RN)1147 (Given - Provider: Gen Oleary RN - Comment: BG 202)1546 (Not Given - Provider: Gen Oleary RN - Reason: Order parameters not met)2209 (Given - Provider: Julissa Eaton RN) 0113 (Not Given - Provider: Denisa Galdamez RN - Reason: Order parameters not met - Comment: bs 170)0437 (Not Given - Provider: Denisa Galdamez RN - Reason: Order parameters not met - Comment: bs [phone] (Not Given - Provider: Kendy Nicole RN - Reason: Order parameters not met)1157 (Given - Provider: Kendy Nicole RN) ketorolac (TORADOL) injection 15 mg (COMPLETED) 15 mg, intravenous, Once, On Thu05/25/19 at 1100, For 1 dose, Intra-Op, INTRA-OP Give at time of skin closure, Indications: Postoperatvie Pain Management 1340 (Given - Provider: Jina Villalobos CRNA) ketorolac (TORADOL) injection 15 mg () 15 mg, intravenous, Every 6 hours, First dose on Thu05/25/19 at 1800, For 2 doses, For Adult IV push, administer over 15 seconds, Indications: Pain 1847 (Not Given - Provider: Ryann Mcqueen, ARMANI - Reason: Medication not available)2302 (Given - Provider: Moriah Hall RN) Lactated Ringer's (LR) bolus 1,000 mL (COMPLETED) 1,000 mL, intravenous, Once, On Thu05/25/19 at 1100, For 1 dose, Pre-Op 1119 (New Bag - Provider: Jina Villalobos CRNA)1353 (Anesthesia Volume Adjustment - Provider: Jina Villalobos CRNA) levothyroxine (SYNTHROID) tablet 25 mcg 25 mcg, oral, Daily, First dose on Thu05/22/19 at 0900, Administer on an empty stomach, preferably 30 minutes before breakfast. Take 4 hours apart from antacids, iron and calcium products. 0755 (Given - Provider: Holly Leonard RN)1012 (MAR Hold - Provider: Automatic Transfer Provider - Reason: Patient not available)1723 (MAR Unhold - Provider: Ryann Mcqueen, ARMANI) 0928 (Given - Provider: Gen Oleary, ARMANI) 0814 (Given - Provider: Kendy Nicole, ARMANI) losartan (COZAAR) tablet 100 mg 100 mg, oral, Daily, First dose on Thu05/22/19 at 0900 0755 (Given - Provider: Holly Leonard, ARMANI)1012 (MAR Hold - Provider: Automatic Transfer Provider - Reason: Patient not available)1723 (MAR Unhold - Provider: Ryann Mcqueen, ARMANI) 0929 (Given - Provider: Gen Oleary, ARMANI) 0814 (Given - Provider: Kendy Nicole, ARMANI) lovastatin (MEVACOR) tablet 10 mg 10 mg, oral, Nightly, First dose on Thu05/22/19 at 2100, Take with food 1012 (MAR Hold - Provider: Automatic Transfer Provider - Reason: Patient not available)1723 (MAR Unhold - Provider: Ryann Mcqueen, ARMANI)2105 (Given - Provider: Moriah Hall, ARMANI) 2133 (Given - Provider: Julissa Eaton RN) metoprolol (LOPRESSOR) injection 5 mg (COMPLETED) 5 mg, intravenous, Administer over 1 Minutes, Once, On Thu05/27/19 at 0445, For 1 dose 0525 (Given - Provider: Denisa Galdamez RN) metoprolol (LOPRESSOR) tablet 12.5 mg (COMPLETED) 12.5 mg, oral, Once, On Thu05/25/19 at 0130, For 1 dose 0100 (Given - Provider: Mary Lamar, ARMANI) metoprolol (LOPRESSOR) tablet 12.5 mg (COMPLETED) 12.5 mg, oral, Once, On Thu05/25/19 at 0400, For 1 dose 0335 (Given - Provider: Mary Lamar, ARMANI) oxyCODONE (ROXICODONE) tablet 5 mg 5 mg, oral, Every 4 hours, First dose (after last modification) on Yuliana 05/26/19 at 0615, Indications: Pain 0609 (Given - Provider: Moriah Hall RN)1147 (Given - Provider: Gen Oleary RN)1543 (Given - Provider: Gen Oleary, ARMANI)1820 (Given - Provider: Gen Oleary, ARMANI)2210 (Given - Provider: Julissa Eaton RN) 0245 (Given - Provider: Denisa Galdamez RN)0618 (Given - Provider: Denisa Galdamez RN)1018 (Given - Provider: Kendy Nicole, ARMANI)1426 (Given - Provider: Kendy Nicole, ARMANI) senna-docusate (PERICOLACE) 8.6-50 mg per tablet 2 tablet 2 tablet, oral, 2 times daily, First dose on Thu05/25/19 at 2100, Hold for diarrhea., Indications: constipation 210 (Given - Provider: Moriah Hall RN) 0928 (Given - Provider: Gen Oleary, ARMANI)2132 (Given - Provider: Julissa Eaton, ARMANI) 0813 (Given - Provider: Kendy Nicole, ARMANI) sodium chloride 0.9% flush 0.5-20 mL (CANCELED) 0.5-20 mL, intra-catheter, Every 8 hours scheduled, First dose on Thu05/22/19 at 0045, Flush volume based on line type and size. 0613 (Given - Provider: Mary Lamar RN)1012 (MAR Hold - Provider: Automatic Transfer Provider - Reason: Patient not available)1400 (Dose Auto Held - Provider: Automatic Transfer Provider)1723 (MAR Unhold - Provider: Ryann Mcqueen, ARMANI)210 (Given - Provider: Moriah Hall RN) sodium chloride 0.9% flush 0.5-20 mL 0.5-20 mL, intra-catheter, Every 8 hours scheduled, First dose on Thu05/25/19 at 2200, Flush volume based on line type and size. 210 (Given - Provider: Moriah Hall RN) 0610 (Not Given - Provider: Moriah Hall RN - Reason: Other)1544 (Given - Provider: Gen Oleary, ARMANI)2139 (Given - Provider: Julissa Eaton RN) 0529 (Given - Provider: Denisa Galdamez, ARMANI)1426 (Given - Provider: Kendy Nicole, ARMANI) vancomycin 1500 mg/515 mL in sodium chloride 0.9% (premix) 1,500 mg (COMPLETED) 1,500 mg, intravenous, Administer over 90 Minutes, Once, On Thu05/25/19 at 1100, For 1 dose, Pre-Op, Administer within 120 minutes of incision., Indications: Prophylaxis, Surgical 1021 (New Bag - Provider: Jillian Moreno RN) vancomycin 1500 mg/515 mL in sodium chloride 0.9% (premix) 1,500 mg (COMPLETED) 1,500 mg, intravenous, Administer over 90 Minutes, Once, On Thu05/25/19 at 2230, For 1 dose, Administer 12 hours after pre-procedure dose., Indications: Prophylaxis, Surgical 2302 (New Bag - Provider: Moriah Hall RN) warfarin (COUMADIN) tablet 2 mg 2 mg, oral, Daily (for warfarin), First dose on Yuliana 05/26/19 at 1800, Target INR: 2 - 3, Indications: VTE Prophylaxis 1820 (Given - Provider: Gen Oleary, ARMANI) Continuous Medication Order 05/25/2019 05/26/2019 05/27/2019 sodium chloride 0.9% infusion (CANCELED) 100 mL/hr, intravenous, Continuous, Starting on Thu05/25/19 at 1500, Phase I & Post-op Floor 1523 (New Bag - Provider: Lindsay Negron, RN) 0428 (New Bag - Provider: Moriah Hall, RN)1842 (Stopped - Provider: Gen Oleary, ARMANI) PRN Medication Order 05/25/2019 05/26/2019 05/27/2019 camphor-menthoL (SARNA) 0.5-0.5 % lotion topical, Every 2 hours PRN, other, itching, Starting on 05/25/19 at 1723, Apply to affected area: other, Indications: Urticaria dextrose (D10W) 10% bolus 250 mL(Linked Group 1) 250 mL, intravenous, at 1,000 mL/hr, Administer over 15 Minutes, Every 15 min PRN, blood glucose less than 70 mg/dL and UNABLE to swallow/take PO glucose/juice., Starting on 05/22/19 at 0011, After treatment for hypoglycemia, recheck BG followed by treatment every 15 minutes until the BG is greater than 100 mg/dL. Then check BG 1 hour post treatment. If BG is less than 100 mg/dL, repeat Q15 minute BG checks and treatment. Call MD for each episode of hypoglycemia., Indications: hypoglycemic disorder 101 ([facility] Hold - Provider: Automatic Transfer Provider - Reason: Patient not available)1722 ([facility] Unhold - Provider: Ryann Mcqueen RN) dextrose (GLUTOSE) 40 % gel 15 g(Linked Group 1) 15 g, oral, Every 15 min PRN, low blood sugar, blood glucose less than 70 mg/dL, Starting on 05/22/19 at 0011, If patient is alert and able to [...] Call MD for each episode of hypoglycemia. RIGGING WORKER STATES GLUTOSE-15 CONTAINS GLUCOSE 40% W/W (50% W/V), Indications: hypoglycemic disorder 1012 (MAR Hold - Provider: Automatic Transfer Provider - Reason: Patient not available)1722 (MAR Unhold - Provider: Ryann Mcqueen, ARMANI) glucagon injection 1 mg 1 mg, intramuscular, Administer over 1 Minutes, Every 30 min PRN, low blood sugar, blood glucose less than 70 mg/dL AND no IV access AND unable to take PO glucose/jiuce., Starting on Thu05/22/19 at 0011, After Glucagon is administered, position patient on [...] for each episode of hypoglycemia., Indications: Hypoglycemia 1012 (MAR Hold - Provider: Automatic Transfer Provider - Reason: Patient not available)1723 ([facility] Unhold - Provider: Ryann Mcqueen, ARMANI) HYDROmorphone (DILAUDID) injection 0.2 mg 0.2 mg, intravenous, Administer over 2 Minutes, Every 3 hours PRN, 1st line for pain, Starting on Thu05/25/19 at 1723, Indications: Pain 0929 (Given - Provider: Gen Oleary, ARMANI) insulin lispro (HumaLOG) injection 1-3 Units (COMPLETED) 1-3 Units, subcutaneous, Once as needed, high blood sugar, Starting on Thu05/25/19 at 1552, For 1 dose, Phase I, Blood Sugar Low Dose - Surgical/Post-Op ICU 175 or less No Insulin 176 - 200 1 unit 201 - 250 2 units 251 - 299 3 units Greater than 299 Call MD for hyperglycemia management instructions Do NOT hold for NPO status., Indications: Diabetes Mellitus 1603 (Given - Provider: Lindsay Negron, ARMANI) ondansetron (ZOFRAN) injection 4 mg(Linked Group 2) 4 mg, intravenous, Administer over 2 Minutes, Every 6 hours PRN, nausea, vomiting, if not tolerating PO, Starting on Thu05/25/19 at 1723, Indications: nausea and vomiting 112[facility]: Kendy Nicole, ARMANI) ondansetron ODT (ZOFRAN-ODT) disintegrating tablet 4 mg(Linked Group 2) 4 mg, oral, Every 6 hours PRN, nausea, vomiting, Starting on Thu05/25/19 at 1723, Indications: nausea and vomiting 1121 (See Alternative - Provider: Kendy Nicole RN) oxyCODONE (ROXICODONE) tablet 5 mg (CANCELED) 5 mg, oral, Every 4 hours PRN, 1st line for pain, Starting on Thu05/22/19 at 0011, Indications: Pain 1012 (MAR Hold - Provider: Automatic Transfer Provider - Reason: Patient not available)1723 (MAR Unhold - Provider: Ryann Mcqueen, ARMANI)1815 (Given - Provider: Ryann Mcqueen, ARMANI) 0145 (Given - Provider: Moriah Hall RN) polyethylene glycol (MIRALAX) packet 17 g 17 g, oral, Daily PRN, constipation, Starting on Thu05/25/19 at 1723, Indications: constipation ramelteon (ROZEREM) tablet 8 mg 8 mg, oral, Nightly PRN, sleep, Starting on Thu05/24/19 at 2356, Indications: Sleep-Onset Insomnia 0001 (Given - Provider: Mary Lamar RN)1012 (MAR Hold - Provider: Automatic Transfer Provider - Reason: Patient not available)1723 (MAR Unhold - Provider: Ryann Mcqueen RN) sodium chloride 0.9 % irrigation (CANCELED) As needed, Starting on Thu05/25/19 at 1303, Intra-Op 1200 (Given - Provider: Kaveh Charles MD - Comment: PRN irrigation to field)1303 (Given - Provider: Kaveh Charles MD - Comment: to pulse irrigation) sodium chloride 0.9% flush 0.5-20 mL 0.5-20 mL, intra-catheter, As needed, line care, Starting on Thu05/25/19 at 1723, Flush volume based on line type and size. Flush before and after each use. sterile water irrigation (CANCELED) As needed, Starting on Thu05/25/19 at 1304, Intra-Op 1304 (Given - Provider: ANATOLY Gilbert - Comment: to washout instruments prior to closure) Linked Groups Order Group 1: dextrose (GLUTOSE) 40 % gel 15 gJump to med 15 g, oral, Every 15 min PRN, low blood sugar, blood glucose less than 70 mg/dL, Starting on Thu05/22/19 at 0011, If patient is alert and able to [...] Call MD for each episode of hypoglycemia. RIGGING WORKER STATES GLUTOSE-15 CONTAINS GLUCOSE 40% W/W (50% W/V), Indications: hypoglycemic disorder Or dextrose (D10W) 10% bolus 250 mLJump to med 250 mL, intravenous, at 1,000 mL/hr, Administer over 15 Minutes, Every 15 min PRN, blood glucose less than 70 mg/dL and UNABLE to swallow/take PO glucose/juice., Starting on Thu05/22/19 at 0011, After treatment for hypoglycemia, recheck BG followed by treatment every 15 minutes until the BG is greater than 100 mg/dL. Then check BG 1 hour post treatment. If BG is less than 100 mg/dL, repeat Q15 minute BG checks and treatment. Call MD for each episode of hypoglycemia., Indications: hypoglycemic disorder Group 2: ondansetron ODT (ZOFRAN-ODT) disintegrating tablet 4 mgJump to med 4 mg, oral, Every 6 hours PRN, nausea, vomiting, Starting on Thu05/25/19 at 1723, Indications: nausea and vomiting Or ondansetron (ZOFRAN) injection 4 mgJump to med 4 mg, intravenous, Administer over 2 Minutes, Every 6 hours PRN, nausea, vomiting, if not tolerating PO, Starting on Thu05/25/19 at 1723, Indications: nausea and vomiting documented in this encounter Orders Medications Ordered That Jon ht Not Have Been Administered Count Last Ordered Date First Ordered Date acetaminophen (TYLENOL) tablet 650 mg 1 01/2020 bupivacaine 0.25%-EPINEPHrin e 1:200,000 PF 60 mL and ketorolac 15 mg solution 1 05/25/2019 camphor-menthoL (SARNA) 0.5-0.5 % lotion 1 05/25/2019 ceFAZolin (ANCEF) 2,000 mg/2 0 mL in sterile water (premix) 2,000 mg 1 05/25/2019 EPINEPHrine 0.15 mg in bacte riostatic 0.9% sodium chloride 30 mL solution 1 05/25/2019 gabapentin (NEURONTIN) capsule 300 mg 1 01/2020 haloperidol (HALDOL) injection 1 mg 1 05/24 HYDROmorphone (DILAUDID) injection 0.2 mg 2 05/25/2019 05/22/2019 HYDROmorphone (DILAUDID) injection 0.4 mg 1 05/25/2019 ketorolac (TORADOL) injection 15 mg 1 05/24 Lactated Ringer's (LR) bolus 1,000 mL 2 01/2020 midazolam (VERSED) injection 2 mg 1 020 ondansetron (ZOFRAN) injection 4 mg 3 05/2405/22/2019 ondansetron ODT (ZOFRAN-ODT) disintegrating tablet 4 mg 1 05/25/2019 polyethylene glycol (MIRALAX) packet 17 g 1 05/25/2019 sodium chloride 0.9 % irrigation 2 05/25/19 20 05/22/2019 sodium chloride 0.9% flush 0.5-20 mL 2 05/1405/22/2019 sterile water irrigation 2 05/25/201910/2019 tranexamic acid (CYKLOKAPRON ) 1,000 mg/10 mL (100 mg/mL) solution 2,000 mg 1 05/25/2019 dextrose (D10W) 10% bolus 250 mL 1 05/22/19 20 dextrose (GLUTOSE) 40 % gel 15 g 1 05/22/19 20 glucagon injection 1 mg 1 05/22/2019 naloxone (NARCAN) 0.4 mg/mL injection 0.04-0.4 mg 1 05/22/2019 prothrombin complex four fac tor (KCENTRA) injection 2,267.5 Units 1 05/21/2019 Lab Orders Without Results Count Last Ordered D ate First Ordered Date POCT GLUCOSE DEVICE 27 05/27/2019 05/21/19 20 MAGNESIUM 1 05/25/2019 Diet Count Last Ordered Date First Orde red Date ADULT DISCHARGE DIET 1 05/27/2019 Nursing Count Last Ordered Date First Orde red Date DISCHARGE ACTIVITY 1 05/27/2019 DISCHARGE CALL PROVIDER 11 05/27/2019 DISCHARGE DRESSING 1 05/27/2019 DISCHARGE INSTRUCTIONS 2 05/27/2019 WEIGHT BEARING STATUS 1 05/27/2019 WEIGH PATIENT 1 05/22/2019 BRACE APPLICATION 1 05/21/2019 NURSING COMMUNICATION 1 05/21/2019 Consult Count Last Ordered Date First Orde red Date IP CONSULT TO ORTHOPEDIC SURGERY 1 05/21/19 20 IP CONSULT TO TRAUMA SURGERY 1 05/21/2019 Transfer Count Last Ordered Date First Orde red Date TRANSFER PATIENT 2 05/25/2019 05/22/2019 Case Request Count Last Ordered Date First Orde red Date CASE REQUEST OPERATING ROOM 1 05/22/2019 ADT Patient Update Count Last Ordered Date Firs t Ordered Date ED IP DECISION TO ADMIT 1 05/21/2019 documented in this encounter Care Teams Filler Room Attendant Relationship Specialty Start Date End Date Wilber Cleaning Jr., MD [address] [place] [address] PCP - General 07/03/16 07/15/20 documented as of this encounter
--- OUTSIDE RECORDS SUMMARY | 2024-03-13 01:16 | XMS_ITS | Encounter Summary ---
Author Organization [facility] Address [address] [place] [address] Phone Care Team Providers Care Slipper Maker Name Role Phone Hermila Calhoun MD, Wilber Duckworth. Primary Care Provider Encounter Details Date Type Department Care Team (Late st Contact Info) Description 05/23/2019 Telephone [facility] Medical Office Building [address] [place] [address] Cathleen Walker MD [address] [facility] [address] [place] [address] Social History Tobacco Use Types Packs/Day Years Used Date Smoking Tobacco: Never Smokeless Tobacco: Never Alcohol Use Standard Drinks/Week Comments Yes 0 (1 standard drink = 0.6 oz pur e alcohol) 1/mo Comments No Sex and Gender Information Value Date Recorded Sex Assigned at Not on file 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 Gender Identity Not on file Sexual Orientation Not on file documented as of this encounter Ordered Prescriptions Prescription Sig Dispense Quantity Refills Last Filled Start Date End Date hydroCHLOROthiazid e (HYDRODIURIL) 25 mg tablet Take 1 tablet (25 mg total) by mouth daily 90 tablet 3 05/23/2019 06/05/2019 documented in this encounter Miscellaneous Notes * Telephone Encounter - Ingrid Barroso RMA - 05/23/2019 12:32 PM CDT Sent to pharmacy documented in this encounter Plan of Treatment Not on file documented as of this encounter Visit Diagnoses Not on filedocumented in this encounter Discontinued Medications Medication Sig Discontinue Reason Start Date End Da te hydroCHLOROthiazide (HYDRODIURIL) 25 mg tablet TAKE ONE TABLET BY MOUTH ONCE DAILY Reorder 11/16/2018 05/23/2019 documented as of this encounter Care Teams Slipper Maker Relationship Specialty Start Date End Date Wilber Cleaning Jr., MD [address] [place] [address] PCP - General 07/03/16 07/15/20 documented as of this encounter
--- OUTSIDE RECORDS SUMMARY | 2024-03-13 01:16 | XMS_ITS | Encounter Summary ---
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 Information 05/25/19 0335 Given 12.5 mg oral Performed by: Mary Lamar RN Lactated Ringer's (LR) bolus 1,000 mL [[id number]] Ordering Provider: Kaveh Charles MD Status: Completed (Past End Date/Time) Ordered On: 05/25/19 1015 Starts/Ends: 05/25/191099 - 05/25/19 111 Dose (Remaining/Total): 1,000 mL (0/1) Route: intravenous Frequency: Once Rate/Duration: -- / -- Timestamps Action Dose / Rate / Duration Route Other Information 05/25/19 111 New Bag -- intravenous Performed by: Jina Villalobos CRNA ceFAZolin (ANCEF) 2,000 mg/20 mL in sterile water (premix) 2,000 mg [[id number]] Ordering Provider: Kaveh Charles MD Status: Completed (Past End Date/Time) Ordered On: 05/25/19 1020 Starts/Ends: 05/25/191099 - 05/25/19 1157 Dose (Remaining/Total): 2,000 mg (0/1) Route: intravenous Frequency: Once Rate/Duration: 400 mL/hr / 3 Minutes Admin Instructions: Administer within 60 minutes of incision. Timestamps Action Dose Route Other Information 05/25/19 115 Given 2,000 mg intravenous Performed by: Jina Villalobos CRNA vancomycin 1500 mg/515 mL in sodium chloride 0.9% (premix) 1,500 mg [[id number]] Ordering Provider: Kaveh Charles MD Status: Completed [...] Moreno RN ketorolac (TORADOL) injection 15 mg [[id number]] Ordering Provider: Kaveh Charles MD Status: Completed [...] bacteriostatic 0.9% sodium chloride 30 mL solution [[id number]] Ordering Provider: Kaveh Charles MD Status: Completed (Past End Date/Time) Ordered On: 05/25/19 102 Starts/Ends: 05/25/19 1100 - 05/25/19 1302 Dose (Remaining/Total): 60 mL (0/1) Route: topical Frequency: Once Rate/Duration: -- / -- Timestamps Action Dose Route / Site Other Information 05/25/19 1302 Given 30 mL topical Surgical Site Performed by: Kaveh Charles MD Documented by: Sukhjinder Gomez RN Comments: epi soaked sponge used in the femur sodium chloride 0.9% flush 0.5-20 mL [[id number]] Ordering Provider: Kaveh Charles MD Status: Verified Ordered On: 05/25/19 172 Start: 05/25/19 2200 Dose (Remaining/Total): 0.5-20 mL (--/--) Route: intra-catheter Frequency: Every 8 hours scheduled Rate/Duration: -- / -- Admin Instructions: Flush volume based on line type and size. Timestamps Action Dose Route Other Information 05/27/19 0529 Given 10 mL intra-catheter Performed by: Denisa Galdamez RN sodium chloride 0.9% flush 0.5-20 mL [[id number]] Ordering Provider: Kaveh Charles MD Status: Verified Ordered On: 05/25/191722 Start: 05/25/191722 Dose (Remaining/Total): 0.5-20 mL (--/--) Route: intra-catheter Frequency: As needed Rate/Duration: -- / -- Admin Instructions: Flush volume based on line type and size. Flush before and after each use. (No admins recorded for this medication) Lactated Ringer's (LR) bolus 1,000 mL [[id number]] Ordering Provider: Kaveh Charles MD Status: Completed (Past End Date/Time) Ordered On: 05/25/191417 Starts/Ends: 05/25/191499 - 05/25/19 1500 Dose (Remaining/Total): 1,000 mL (0/1) Route: intravenous Frequency: Once Rate/Duration: 1,000 mL/hr / 1 Hours (No admins recorded for this medication) ondansetron ODT (ZOFRAN-ODT) disintegrating tablet 4 mg [[id number]] Ordering Provider: Kaveh Charles MD Status: Verified Ordered On: 05/25/191722 Start: 05/25/191722 Dose (Remaining/Total): 4 mg (--/--) Route: oral Frequency: Every 6 hours PRN Rate/Duration: -- / -- (No admins recorded for this medication) ondansetron (ZOFRAN) injection 4 mg [[id number]] Ordering Provider: Kaveh Charles MD Status: Verified Ordered On: 05/25/191722 Start: 05/25/191722 Dose (Remaining/Total): 4 mg (--/--) Route: intravenous Frequency: Every 6 hours PRN Rate/Duration: -- / 2 Minutes (No admins recorded for this medication) senna-docusate (PERICOLACE) 8.6-50 mg per tablet 2 tablet [[id number]] Ordering Provider: Kaveh Charles MD Status: Dispensed Ordered On: 05/25/191722 Start: 05/25/192099 Dose (Remaining/Total): 2 tablet (--/--) Route: oral Frequency: 2 times daily Rate/Duration: -- / -- Admin Instructions: Hold for diarrhea. Timestamps Action Dose Route Other Information 05/27/19812 Given 2 tablet oral Performed by: Kendy Nicole RN polyethylene glycol (MIRALAX) packet 17 g [[id number]] Ordering Provider: Kaveh Charles MD Status: Verified Ordered On: 05/25/191722 Start: 05/25/191722 Dose (Remaining/Total): 17 g (--/--) Route: oral Frequency: Daily PRN Rate/Duration: -- / -- (No admins recorded for this medication) famotidine (PEPCID) tablet 20 mg [[id number]] Ordering Provider: Kaveh Charles MD Status: Dispensed Ordered On: 05/25/191722 Start: 05/25/192099 Dose (Remaining/Total): 20 mg (--/--) Route: oral Frequency: 2 times daily Rate/Duration: -- / -- Timestamps Action Dose Route Other Information 05/27/19812 Given 20 mg oral Performed by: Kendy Nicloe RN camphor-menthoL (SARNA) 0.5-0.5 % lotion [[id number]] Ordering Provider: Kaveh Charles MD Status: Dispensed Ordered On: 05/25/191722 Start: 05/25/191722 Dose (Remaining/Total): -- (--/--) Route: topical Frequency: Every 2 hours PRN Rate/Duration: -- / -- Question Answer Comment Apply to affected area:: other surgical wound site (No admins recorded for this medication) warfarin (COUMADIN) tablet 2 mg [[id number]] Ordering Provider: Kaveh Charles MD Status: Dispensed Ordered On: 05/25/191722 Start: 05/26/19 1800 Dose (Remaining/Total): 2 mg (--/--) Route: oral Frequency: Daily (for warfarin) Rate/Duration: -- / -- Question Answer Comment Target INR: 2 - 3 -- Timestamps Action Dose Route Other Information 05/26/19 1820 Given 2 mg oral Performed by: Gen Oleary RN ceFAZolin (ANCEF) 2,000 mg/20 mL in sterile water (premix) 2,000 mg [[id number]] Ordering Provider: Kaveh Charles MD Status: Completed (Past End Date/Time) Ordered On: 05/25/191722 Starts/Ends: 05/25/191999 - 05/26/19 043 Dose (Remaining/Total): 2,000 mg (0/2) Route: intravenous Frequency: Every 8 hours Rate/Duration: 400 mL/hr / 3 Minutes Admin Instructions: Beginning 8 hours after last taya-operative dose. Timestamps Action Dose / Rate / Duration Route Other Information 05/26/19427 New Bag 2,000 mg 400 mL/hr 3 Minutes intravenous Performed by: Moriah Hall RN vancomycin 1500 mg/515 mL in sodium chloride 0.9% (premix) 1,500 mg [[id number]] Ordering Provider: Kaveh Charles MD Status: Completed (Past End Date/Time) Ordered On: 05/25/191722 Starts/Ends: 05/25/192229 - 05/26/19 003 Dose (Remaining/Total): 1,500 mg (0/1) Route: intravenous Frequency: Once Rate/Duration: -- / 90 Minutes Admin Instructions: Administer 12 hours after pre-procedure dose. Timestamps Action Dose / Duration Route Other Information 05/25/19 230 New Bag 1,500 mg 90 Minutes intravenous Performed by: Moriah Hall RN ketorolac (TORADOL) injection 15 mg [[id number]] Ordering Provider: Kaveh Charles MD Status: Dispensed (Past End Date/Time) Ordered On: 05/25/191722 Starts/Ends: 05/25/19 1800 - 05/26/19 0559 Dose (Remaining/Total): 15 mg (1/2) Route: intravenous Frequency: Every 6 hours Rate/Duration: -- / -- Admin Instructions: For Adult IV push, administer over 15 seconds Timestamps Action Dose Route Other Information 05/25/19 2302 Given 15 mg intravenous Performed by: Moriah Hall RN HYDROmorphone (DILAUDID) injection 0.2 mg [[id number]] Ordering Provider: Kaveh Charles MD Status: Dispensed [...] RN insulin lispro (HumaLOG) injection 1-3 Units [[id number]] Ordering Provider: Yoly Medellin MD Status: Completed [...] Negron RN oxyCODONE (ROXICODONE) tablet 5 mg [[id number]] Ordering Provider: Suzie Wu MD Status: Dispensed Ordered On: 05/26/19 0530 Start: 05/26/19 0545 Dose (Remaining/Total): 5 mg (--/--) Route: oral Frequency: Every 4 hours Rate/Duration: -- / -- Timestamps Action Dose Route Other Information 05/27/19 0618 Given 5 mg oral Performed by: Denisa Galdamez RN metoprolol (LOPRESSOR) injection 5 mg [[id number]] Ordering Provider: Ryann Ribeiro MD Status: Completed (Past End Date/Time) Ordered On: 05/27/19409 Starts/Ends: 05/27/19444 - 05/27/19525 Dose (Remaining/Total): 5 mg (0/1) Route: intravenous Frequency: Once Rate/Duration: -- / 1 Minutes Line Med Link Info Comment Peripheral IV 05/26/19 20 G Left Antecubital 05/27/19524 by Denisa Galdamez RN -- Timestamps Action [...] Problem: Open fracture of left distal femur ([facility]) [S72.402B] More... Elopement Risk Date/Time Elopement Risk User 05/22/19 0651 No risk JLH 05/22/19 0500 No risk Intake/Output 05/24/19 0700 - 05/25/19 0659 05/25/19 0700 - 05/26/19 0659 05/26/19 07 - 05/27/19 0659 Total Total [phone] 1930-2002 Total Intake (ml) 20 3050 -- 500 -- 500 Output (ml) 700 930 400 401 124 1287 Net (ml) -680 2120 -400 175 -475 [...] ............filed at 05/27/2019 0820 Vital Signs 05/25 699 - 05/26 0659 05/26 07 - 05/26 [...] Able to feed self Nursing Mobility Activity 05/27 819 Resting in bed 05/26 06 Resting in bed 05/26 05 Sleeping 05/25 2338 Resting in bed 05/25 2314 Resting in bed 05/25 2210 Resting in bed 05/25 2138 Resting in bed 05/25 2059 Resting in bed 05/25 1910 Resting in bed 05/25 1541 Resting [...] Resting in bed Level of Assistance 05/25 1909 Moderate assist, patient does 50-74% 05/24 1914 [...] 05/26 0820 Able to turn self 05/25 191 Able to turn self 05/24 2248 Able [...] 05/25 191 Heels elevated off bed 05/24 191 Heels elevated off bed;Foot of bed elevated [...] Right lower extremity 05/25 191 Bilateral 05/24 191 Bilateral 05/24 1407 Bilateral 05/24 0700 Bilateral 05/23 2100 Bilateral Mechanical Compression Type 05/26 0820 IPC/SCD 05/25 191 IPC/SCD 05/24 191 IPC/SCD 05/24 1407 IPC/SCD 05/24 0700 IPC/SCD 05/23 2100 IPC/SCD Mechanical Compression Status 05/26 0820 Off 05/25 1910 On 05/24 1915 On 05/24 1407 On 05/24 0700 Off 03/10 2100 On * Plan of Care - Kendy Nicole RN - 05/27/2019 8:36 AM CDT Problem: Health [...] w/ therapy, back to bed x2 assist. Keith UOP Gen Oleary RN Problem: Health Behavior: Goal: Understanding of [...] level will decrease Outcome: Progressing * Provider Flavio - Mary Umana - 05/26/2019 2:10 PM [...] record. Thank you, Mary Umana RN, MSN, [facility] [phone] * Plan of Care - Moriah Hall [...] system distal femoral component, size B 2. Albert segmental system trabecular metal stem collar, 35 [...] tibia. A primary tibial cut was made. Theproximal tibial preparation was completed with a keel punch. A trial tibial component was placed. Next, the femoral canal was reamed sequentially to a stable fit. The distal femur was reconstructed according to the length of resection measured previously. A trial femoral component was placed. A trial liner was placed and secured with a trial post. The knee was reduced. Stability was confirmed in e xtension, mid-flexion, and 90 degrees of flexion. Patellar tracking was found to be excellent. Leg length latter-day was confirmed. The rotation was marked. The [...] available during skin closure. Kaveh Charles M.D. Bean Snipper, Orthopaedic Surgery * Plan of Care - Neetu Mejia RN - 05/25/2019 7:49 AM CDT Per Notes: [...] to follow for needs A Roberto RM [phone] For evening case management needs please contact the software engineering associate manager at [phone]. For weekend and holiday needs please call [phone]. * Plan of Care - Holly Leonard [...] npo for procedure Summary: * Plan of Garcia - Mary Lamar RN - 05/24/2019 10:38 [...] Pain level will decrease Outcome: Progressing * Kory of Garcia - Holly Leonard RN - [...] for the Shift: pain control Summary: * Kory of Miranda Arrington RN - 05/24/2019 12:19 AM CDT Problem: [...] will decrease Outcome: Progressing * Plan of Care - Francisca Lipscomb RN - 05/22/2019 3:25 [...] AM CDT No yumiko hugger used. Warm Cobden was used * Op Note - Cuba Castro MD - 05/22/2019 8:13 AM CDT Date of Surgery: .05/22/19 Pre-operative Diagnosis: 1. Comminuted open left distal femur fracture, type 1 Post-operative diagnosis: 1. Same as above Operative Procedure: 1. Irrigation and excisional debridement of nonviable subcutaneous tissue and bone from left distal femur fracture Attending Surgeon: Cuba Castro MD, M.Sc. Barnworker Groom: 1. Lina Elizabeth MD Anesthesia: General Blood [...] resulting from a laceration of a small home appliance technician secondary to her fracture. This was cauterized. [...] Resident - Assisting Anesthesiologist: Daryn Jaramillo MD GUN STOCK MAKER: Mehul Dias CRNA Student Nurse Banking Paralegal: Daya Baldwin RN Industrial Nurse: Aurelia Pederson RN Scrub: ST Jeromy DATE OF SURGERY : 05/22/2019 Preoperative Diagnosis: Pre-op Diagnosis * Other type I or II open fracture of distal end of left femur, initial encounter ([facility]) [S72.242B] Postoperative Diagnosis: Post-op Diagnosis * Other type I or II open fracture of distal end of left femur, initial encounter ([facility]) [S72.680B] Procedure(s): Procedure(s) (LRB): INCISION AND DRAINAGE - [...] Berny Carrera MD - 05/21/2019 7:40 PM BLOOD BANK SPECIALIST Associated Order(s): ECG 12 lead Procedure ECG [...] in the ED Berny Carrera MD 05/21/191939 D BANK SPECIALIST * ED Pre-Arrival Note - Lina Wyatt RN - 05/21/2019 4:17 PM BLOOD BANK SPECIALIST Pre-Arrival Note Pt accepted as Level [address] Elena, report called by RACHID Flores. Pt had a ground level fall today. - LOC. Head CT negative. Pt has a comminuted L femur fracture into the knee joint with dislocationof the knee. PMS intact. VSS at time of report. Lina Wyatt RN D BANK SPECIALIST documented in this encounter Plan of [...] of shaft of left femur, initial encounter ([facility]) Special Needs [place] POCT GLUCOSE DEVICE Routine 05/25/2019 1 0:41 AM CDT TYPE AND SCREEN STAT 05/25/2019 10:01 AM CDT PREPARE RBC STAT 05/25/2019 9:59 AM CDT POCT GLUCOSE DEVICE Routine 05/25/2019 7 :54 AM CDT URINALYSIS AND REFLEX TO MICROSCOPIC AND CULTURE STAT 05/25/2019 6:11 AM CDT URINALYSIS, MICROSCOPIC ONLY STAT 05/25/2019 6:11 AM CDT POCT GLUCOSE DEVICE Routine 05/25/2019 3 :34 AM CDT POCT GLUCOSE DEVICE Routine 05/24/2019 [...] DEVICE Routine 05/22/2019 8 :29 AM CDT POCT GLUCOSE DEVICE Routine 05/22/2019 6 :39 AM CDT POCT GLUCOSE DEVICE Routine 05/22/2019 4 :59 AM CDT PROTIME-INR STAT 05/22/2019 4:57 AM CDT POCT GLUCOSE DEVICE Routine 05/22/2019 1 2:39 AM BLOOD BANK SPECIALIST B CHECK SAMPLE STAT 05/21/2019 11:48 PM BLOOD BANK SPECIALIST POCT GLUCOSE DEVICE Routine 05/21/2019 1 1:[address] KNEE LEFT WO CONTRAST ED 05/21/2019 10:21 PM BLOOD BANK SPECIALIST NEURO CT MR OUTSIDE CONSULT ED 05/21/2019 8:[address] CERVICAL SPINE WO CONTRAST ED 05/21/2019 8:29 PM BLOOD BANK SPECIALIST XR KNEE LEFT 1 OR 2 VIEWS ED 05/21/2019 8:26 PM BLOOD BANK SPECIALIST XR PELVIS 1 OR 2 VIEWS ED 05/21/2019 8:26 PM BLOOD BANK SPECIALIST XR FEMUR LEFT 2 OR MORE VIEWS ED 05/21/2019 8:25 PM BLOOD BANK SPECIALIST XR CHEST 1 VIEW ED 05/21/2019 8:24 PM BLOOD BANK SPECIALIST DIFFERENTIAL AUTO STAT 05/21/2019 7:4 3 PM BLOOD BANK SPECIALIST CBC WITH AUTO DIFFERENTIAL STAT 05/21/2019 7:43 PM BLOOD BANK SPECIALIST APTT STAT 05/21/2019 7:43 PM BLOOD BANK SPECIALIST PROTIME-INR STAT 05/21/2019 7:43 PM BLOOD BANK SPECIALIST TYPE AND SCREEN STAT 05/21/2019 7:43 PM BLOOD BANK SPECIALIST COMPREHENSIVE METABOLIC PANEL STAT 05/21/2019 7:43 PM BLOOD BANK SPECIALIST ECG 12-LEAD STAT 05/21/2019 7:40 PM BLOOD BANK SPECIALIST XR TRANSFER OF OUTSIDE FILMS ED 05/21/2019 7:33 PM BLOOD BANK SPECIALIST POCT GLUCOSE DEVICE Routine 05/21/2019 7 :27 PM BLOOD BANK SPECIALIST documented in this encounter Results * (ABNORMAL) POCT glucose (05/27/2019 11:49 AM CDT) Glucose, POC 213(H) 70 - 199 mg/dL [facility] Blood specimen (specimen) 05/27/2019 11:49 AM CDT 05/27/2019 11:49 AM CDT Kaveh Charles MD LAB POCT ORDERABLES - [place] CE Final Result Performing Organization Address [facility] Co de Phone Number [facility] Department [place] [employer] [place] [address] * POCT glucose (05/27/2019 7:30 AM CDT) Glucose, POC 176 70 - 199 mg/dL [facility] Blood specimen (specimen) 05/27/2019 7:30 AM CDT 05/27/2019 7:30 AM CDT Kaveh Charles MD LAB POCT ORDERABLES - [place] CE Final Result Performing Organization Address City/[facility]/ZIP Co de Phone Number [facility] [place] [employer] [place] [address] * POCT glucose (05/27/2019 4:35 AM CDT) Glucose, POC 174 70 - 199 mg/dL [facility] Blood specimen (specimen) 05/27/2019 4:35 AM CDT 05/27/2019 4:35 AM CDT Kaveh Charles MD LAB POCT ORDERABLES - [place] CE Final Result Performing Organization Address [facility] Co de Phone Number [facility] [place] [address] * POCT glucose (05/27/2019 1:07 AM CDT) [facility] Glucose, POC 170 70 - 199 mg/dL [facility] Blood specimen (specimen) 05/27/2019 1:07 AM CDT 05/27/2019 1:07 AM CDT Steve Garcia MD LAB POCT ORDERABLES - DEV ICE Final Result Performing Organization Address [facility] Co de Phone Number [facility] [place] [place] [address] * (ABNORMAL) POCT glucose (05/26/2019 9:55 PM CDT) [facility] Glucose, POC 235(H) 70 - 199 mg/dL [facility] Blood specimen (specimen) 05/26/2019 9:55 PM CDT 05/26/2019 9:55 PM CDT Steve Garcia MD LAB POCT ORDERABLES - DEV ICE Final Result Performing Organization Address [facility] Co de Phone Number [facility] [place] [address] * Differential, auto (05/26/2019 9:52 PM CDT) Neutrophil abs 5.2 1.7 - 6.5 K/cumm [facility] Imm gran abs 0.0 0.0 - 0.1 K/cumm [facility] Lymphocyte abs 1.2 0.8 - 3.3 K/cumm [facility] Monocyte abs 0.6 0.2 - 0.8 K/cumm [facility] Eosinophil abs 0.1 0.0 - 0.5 K/cumm [facility] Basophil abs 0.0 0.0 - 0.1 K/cumm [facility] Neutrophil pct 72.9 % [facility] Comment: Interpretive Data Percent cell count reference ranges are not reported, since discordance with absolute values may lead to misinterpretation of CBC data. Current Interpretive Data was last revised on 2017. Imm gran pct 0.7 % [facility] Comment: Interpretive Data Percent cell count reference ranges are not reported, since discordance with absolute values may lead to misinterpretation of CBC data. Current Interpretive Data was last revised on 2017. Lymphocyte pct 17.4 % [facility] Comment: Interpretive Data Percent cell count reference ranges are not reported, since discordance with absolute values may lead to misinterpretation of CBC data. Current Interpretive Data was last revised on 2017. Monocyte pct 7.9 % [facility] Comment: Interpretive Data Percent cell count reference ranges are not reported, since discordance with absolute values may lead to misinterpretation of CBC data. Current Interpretive Data was last revised on 2017. Eosinophil pct 1.0 % [facility] Comment: Interpretive Data Percent cell count reference ranges are not reported, since discordance with absolute values may lead to misinterpretation of CBC data. Current Interpretive Data was last revised on 2017. Basophil pct 0.1 % [facility] Comment: Interpretive Data Percent cell count reference ranges are not reported, since discordance with absolute values may lead to misinterpretation of CBC data. Current Interpretive Data was last revised on 2017. Blood specimen (specimen) 05/26/2019 9:52 PM CDT 05/26/2019 10:09 PM CDT us Kaveh Charles MD LAB BLOOD ORDERABLES Final Result [facility] Department of Laboratories [place], [place] [id number] * (ABNORMAL) Basic metabolic panel (05/26/2019 9:52 PM CDT) Sodium 134(L) 135 - 145 mmol/L [facility] Potassium, pl 4.2 3.3 - 4.9 mmol/L [facility] Chloride 104 97 - 110 mmol/L [facility] CO2 25 22 - 32 mmol/L [facility] Anion gap 5 2 - 15 mmol/L [facility] BUN 17 8 - 25 mg/dL [facility] Creatinine 0.45(L) 0.60 - 1.10 mg/dL [facility] Glucose 222(H) 70 - 199 mg/dL [facility] Comment: Interpretive Data Fasting glucose [...] 2017. Calcium 8.3(L) 8.5 - 10.3 mg/dL [facility] Blood specimen (specimen) 05/26/2019 9:52 PM CDT 05/26/2019 10:09 PM CDT Kaveh Charles MD LAB BLOOD ORDERABLES Final Result [facility] Department [place] [address] * (ABNORMAL) CBC with auto differential (05/26/2019 9:52 PM CDT) Pathologist [facility] WBC 7.1 3.8 - 9.9 K/cumm [facility] Hgb 8.9(L) 11.9 - 15.5 g/dL [facility] Hct 27.5(L) 35.6 - 45.5 % [facility] Plt 210 150 - 400 K/cumm [facility] MPV 10.0 9.1 - 12.3 fL [facility] RBC 2.80(L) 3.90 - 5.20 M/cumm [facility] MCV 98.2(H) 81.3 - 96.4 fL [facility] MCH 31.8 27.1 - 33.3 pg [facility] MCHC 32.4 32.3 - 35.7 g/dL [facility] RDW CV 15.2(H) 11.1 - 14.9 % [facility] RDW SD 54.1(H) 35.7 - 48.1 fL [facility] NRBC abs 0.00 0.00 - 0.01 K/cumm [facility] Blood specimen (specimen) 05/26/2019 9:52 PM CDT 05/26/2019 10:09 PM CDT Kaveh Charles MD LAB BLOOD ORDERABLES Final Result Performing Organization Address [facility] Department [place] [employer] [place] [address] * (ABNORMAL) Protime-INR (05/26/2019 9:52 PM CDT) Pathologist [facility] PT 13.7(H) 8.6 - 13.0 sec [facility] INR 1.3(H) 0.8 - 1.2 [facility] Comment: Interpretive data Oral anticoagulant therapeutic ranges: Venous thromboembolism prophylaxis or treatment: 2.0-3.0 CARDIOLOGY Standard range: 2.0-3.0 High-intensity range: 2.5-3.5 Refer to indication-specific guidelines for appropriate target ranges for prosthetic heart valve replacement. Current interpretive data was last revised on 2019. Blood specimen (specimen) 05/26/2019 9:52 PM CDT 05/26/2019 10:06 PM CDT Kaveh Charles MD LAB BLOOD ORDERABLES Final Result Performing Organization Address [facility] Phone Number [facility] [place] [address] * POCT glucose (05/26/2019 3:46 PM CDT) Glucose, POC 188 70 - 199 mg/dL [facility] Blood specimen (specimen) 05/26/2019 3:46 PM CDT 05/26/2019 3:46 PM CDT Kaveh Charles MD LAB POCT ORDERABLES - [place] CE Final Result Performing Organization Address [facility] Co de Phone Number [facility] [place] [address] * (ABNORMAL) POCT glucose (05/26/2019 11:47 AM CDT) Glucose, POC 202(H) 70 - 199 mg/dL [facility] Blood specimen (specimen) 05/26/2019 11:47 AM CDT 05/26/2019 11:47 AM CDT Kaveh Charles MD LAB POCT ORDERABLES - [place] CE Final Result Performing Organization Address [facility] Co de Phone Number [facility] [place] [address] * (ABNORMAL) POCT glucose (05/26/2019 9:25 AM CDT) Glucose, POC 216(H) 70 - 199 mg/dL [facility] Blood specimen (specimen) 05/26/2019 9:25 AM CDT 05/26/2019 9:25 AM CDT Kaveh Charles MD LAB POCT ORDERABLES - [place]IN[place] CE Final Result Performing Organization Address City/[facility] Co de Phone Number [facility] [employer] [place] [address] * POCT glucose (05/26/2019 6:08 AM CDT) Glucose, POC 160 70 - 199 mg/dL [facility] Blood specimen (specimen) 05/26/2019 6:08 AM CDT 05/26/2019 6:08 AM CDT Kaveh Charles MD LAB POCT ORDERABLES - [place]IN[place] CE Final Result Performing Organization Address City/[facility]/ZIP Co de Phone Number [facility] Department [place] [address] * POCT glucose (05/25/2019 11:04 PM CDT) Pathologist [facility] Glucose, POC 174 70 - 199 mg/dL [facility] Blood specimen (specimen) 05/25/2019 11:04 PM CDT 05/25/2019 11:04 PM CDT Kaveh Charles MD LAB POCT ORDERABLES - [place]IN[place] CE Final Result Performing Organization Address [facility] de Phone Number [facility] Department [place] [address] * Differential, auto (05/25/2019 10:42 PM CDT) Neutrophil abs 5.4 1.7 - 6.5 K/cumm [facility] Imm gran abs 0.0 0.0 - 0.1 K/cumm [facility] Lymphocyte abs 1.2 0.8 - 3.3 K/cumm [facility] Monocyte abs 0.7 0.2 - 0.8 K/cumm [facility] Eosinophil abs 0.0 0.0 - 0.5 K/cumm [facility] Basophil abs 0.0 0.0 - 0.1 K/cumm [facility] Neutrophil pct 73.2 % [facility] Comment: Interpretive Data Percent cell count reference ranges are not reported, since discordance with absolute values may lead to misinterpretation of CBC data. Current Interpretive Data was last revised on 2017. Imm gran pct 0.4 % [facility] Comment: Interpretive Data Percent cell count reference ranges are not reported, since discordance with absolute values may lead to misinterpretation of CBC data. Current Interpretive Data was last revised on 2017. Lymphocyte pct 15.8 % [facility] Comment: Interpretive Data Percent cell count reference ranges are not reported, since discordance with absolute values may lead to misinterpretation of CBC data. Current Interpretive Data was last revised on 2017. Monocyte pct 9.8 % [facility] Comment: Interpretive Data Percent cell count reference ranges are not reported, since discordance with absolute values may lead to misinterpretation of CBC data. Current Interpretive Data was last revised on 2017. Eosinophil pct 0.4 % [facility] Comment: Interpretive Data Percent cell count reference ranges are not reported, since discordance with absolute values may lead to misinterpretation of CBC data. Current Interpretive Data was last revised on 2017. Basophil pct 0.4 % [facility] Comment: Interpretive Data Percent cell count reference ranges are not reported, since discordance with absolute values may lead to misinterpretation of CBC data. Current Interpretive Data was last revised on 2017. Blood specimen (specimen) 05/25/2019 10:42 PM CDT 05/25/2019 11:36 PM CDT Berny Carrera MD LAB BLOOD ORDERABLES Sri l Result [facility] Department [place] [address] * (ABNORMAL) Protime-INR (05/25/2019 10:42 PM CDT) PT 13.3(H) 8.6 - 13.0 sec [facility] INR 1.2 0.8 - 1.2 [facility] Comment: Interpretive data Oral anticoagulant therapeutic ranges: Venous thromboembolism prophylaxis or treatment: 2.0-3.0 CARDIOLOGY Standard range: 2.0-3.0 High-intensity range: 2.5-3.5 Refer to indication-specific guidelines for appropriate target ranges for prosthetic heart valve replacement. Current interpretive data was last revised on 2019. Blood specimen (specimen) 05/25/2019 10:42 PM CDT 05/25/2019 11:27 PM CDT Kaveh Charles MD LAB BLOOD ORDERABLES Final Result Performing Organization Address [facility] Co de Phone Number [facility] Department [place] [address] * (ABNORMAL) CBC with auto differential (05/25/2019 10:42 PM CDT) [facility] WBC 7.4 3.8 - 9.9 K/cumm [facility] Hgb 9.2(L) 11.9 - 15.5 g/dL [facility] Hct 28.7(L) 35.6 - 45.5 % [facility] Plt 232 150 - 400 K/cumm [facility] MPV 10.4 9.1 - 12.3 fL [facility] RBC 2.95(L) 3.90 - 5.20 M/cumm [facility] MCV 97.3(H) 81.3 - 96.4 fL [facility] MCH 31.2 27.1 - 33.3 pg [facility] MCHC 32.1(L) 32.3 - 35.7 g/dL [facility] RDW CV 15.0(H) 11.1 - 14.9 % [facility] RDW SD 52.3(H) 35.7 - 48.1 fL [facility] NRBC abs 0.00 0.00 - 0.01 K/cumm [facility] Blood specimen (specimen) 05/25/2019 10:42 PM CDT 05/25/2019 11:36 PM CDT Kaveh Charles MD LAB BLOOD ORDERABLES Final Result [facility] Department [place] [address] * POCT glucose (05/25/2019 9:08 PM CDT) [facility] Glucose, POC 167 70 - 199 mg/dL [facility] Blood specimen (specimen) 05/25/2019 9:08 PM CDT 05/25/2019 9:08 PM CDT Kaveh Charles MD LAB POCT ORDERABLES - [place]STIN[place] CE Final Result Performing Organization Address City/[facility]/ZIP Co de Phone Number [facility] Department [place] [address] * (ABNORMAL) Basic metabolic panel (05/25/2019 8:30 PM CDT) [facility] Sodium 137 135 - 145 mmol/L [facility] Potassium, pl 4.1 3.3 - 4.9 mmol/L [facility] Chloride 104 97 - 110 mmol/L [facility] CO2 29 22 - 32 mmol/L [facility] Anion gap 4 2 - 15 mmol/L [facility] BUN 18 8 - 25 mg/dL [facility] Creatinine 0.62 0.60 - 1.10 mg/dL [facility] Glucose 171 70 - 199 mg/dL [facility] Comment: Interpretive Data Fasting glucose [...] 2017. Calcium 8.1(L) 8.5 - 10.3 mg/dL [facility] Blood specimen (specimen) 05/25/2019 8:30 PM CDT 05/25/2019 11:36 PM CDT Kaveh Charles MD LAB BLOOD ORDERABLES Final Result Performing Organization Address [facility]/ZIP Co de Phone Number [facility] [place] [address] * POCT glucose (05/25/2019 4:57 PM CDT) Glucose, POC 175 70 - 199 mg/dL [facility] Blood specimen (specimen) 05/25/2019 4:57 PM CDT 05/25/2019 4:57 PM CDT Kaveh Charles MD LAB POCT ORDERABLES - [place]STIN[place] CE Final Result Performing Organization Address [facility] Co de Phone Number [facility] [place] [address] * (ABNORMAL) POCT glucose (05/25/2019 3:05 PM CDT) Glucose, POC 209(H) 70 - 199 mg/dL [facility] Blood specimen (specimen) 05/25/2019 3:05 PM CDT 05/25/2019 3:05 PM CDT Kaveh Charles MD LAB POCT ORDERABLES - [place]STIN[place] CE Final Result Performing Organization Address [facility] Co de Phone Number [facility] [place] [address] * XR Knee Left 1 or 2 [...] Sodium 137 135 - 145 mmol/L [facility] Potassium, pl 4.4 3.3 - 4.9 mmol/L [facility] Chloride 105 97 - 110 mmol/L [facility] CO2 27 22 - 32 mmol/L [facility] Anion gap 5 2 - 15 mmol/L [facility] BUN 14 8 - 25 mg/dL [facility] Creatinine 0.50(L) 0.60 - 1.10 mg/dL [facility] Glucose 204(H) 70 - 199 mg/dL [facility] Comment: Interpretive Data Fasting glucose [...] 2017. Calcium 8.3(L) 8.5 - 10.3 mg/dL [facility] Blood specimen (specimen) 05/25/2019 2:19 PM CDT 05/25/2019 2:44 PM CDT Kaveh Charles MD LAB BLOOD ORDERABLES Final Result [facility] Department [place] [address] * (ABNORMAL) CBC without differential (05/25/2019 2:19 PM CDT) Pathologist [facility] WBC 6.7 3.8 - 9.9 K/cumm [facility] Hgb 9.9(L) 11.9 - 15.5 g/dL [facility] Hct 30.5(L) 35.6 - 45.5 % [facility] Plt 212 150 - 400 K/cumm [facility] MPV 10.4 9.1 - 12.3 fL [facility] RBC 3.09(L) 3.90 - 5.20 M/cumm [facility] MCV 98.7(H) 81.3 - 96.4 fL [facility] MCH 32.0 27.1 - 33.3 pg [facility] MCHC 32.5 32.3 - 35.7 g/dL [facility] RDW CV 14.6 11.1 - 14.9 % [facility] RDW SD 51.8(H) 35.7 - 48.1 fL [facility] NRBC abs 0.00 0.00 - 0.01 K/cumm [facility] Blood specimen (specimen) 05/25/2019 2:19 PM CDT 05/25/2019 2:44 PM CDT Kaveh Charles MD LAB BLOOD ORDERABLES Final Result Performing Organization Address [facility] de Phone Number [facility] Department [place] [address] * (ABNORMAL) Protime-INR (05/25/2019 2:19 PM CDT) PT 13.3(H) 8.6 - 13.0 sec [facility] INR 1.2 0.8 - 1.2 [facility] Comment: Interpretive data Oral anticoagulant [...] BLOOD ORDERABLES Final Result Performing Organization Address [facility] de Phone Number [facility] Department [place] [address] * (ABNORMAL) POC Blood Gas and Chemistries, Arterial - (05/25/2019 1:51 PM CDT) pH, Art 7.37 7.35 - 7.45 [facility] pCO2, Art POC 43 35 - 45 mmHg [facility] pO2, Art POC 252(H) 83 - 108 mmHg [facility] Na, POC 138 135 - 145 mmol/L [facility] K POC 3.8 3.3 - 4.9 mmol/L [facility] Cl, POC 105 97 - 110 mmol/L [facility] Ionized Ca, POC 4.92 4.50 - 5.10 mg/dL [facility] Glucose, POC 177 70 - 199 mg/dL [facility] Lactate, POC 1.3 0.7 - 2.2 mmol/L [facility] SO2 (tatiana) arterial 100(H) 90 - 95 % [facility] Base excess, POC -0.6 mmol/L [facility] HCO3, Art POC 25 20 - 30 mmol/L [facility] Hct, POC 26.0(L) 36.3 - 45.3 % [facility] O2 Sat, Art POC (Calc) 100 % [facility] Total Hb, POC 8.8(L) 11.9 - 15.5 g/dL [facility] Blood specimen (specimen) 05/25/2019 1:51 PM CDT 05/25/2019 1:51 PM CDT Kaveh Charles MD LAB POCT ORDERABLES - DESTINEE CE Final Result [facility] Department [place] [place] [address] * Transfuse RBC (05/25/2019 1:36 PM CDT) Blood specimen (specimen) Paul Kelly MD BLOOD TRANSFUSION ORDERABLES Final Result Performing Organization Address City/[facility]/ZIP Co de Phone Number [facility] Department [place] [place] [address] * (ABNORMAL) POC Blood Gas and Chemistries, Venous - (05/25/2019 1:29 PM CDT) pH, Alton POC 7.35 7.32 - 7.43 [facility] pCO2, alton POC 32(L) 40 - 50 mmHg [facility] pO2, alton POC 45 mmHg [facility] Na, POC 141 135 - 145 mmol/L [facility] K POC 2.6(L) 3.3 - 4.9 mmol/L [facility] Cl, POC 118(H) 97 - 110 mmol/L [facility] Ionized Ca, POC 3.44(L) 4.50 - 5.10 mg/dL [facility] Glucose, POC 116 70 - 199 mg/dL [facility] Lactate, POC 1.0 0.7 - 2.2 mmol/L [facility] O2 Sat, Al[place] POC (Tatiana) 81 % [facility] Base excess, POC -6.8 mmol/L [facility] HCO3, [place] POC 18(L) 20 - 30 mmol/L [facility] Hct, POC 19.0(L) 36.3 - 45.3 % [facility] Total Hb, POC 6.2(L) 11.9 - 15.5 g/dL [facility] O2 Sat, [place] POC (Calc) 78 % [facility] Blood specimen (specimen) 05/25/2019 1:29 PM CDT 05/25/2019 1:29 PM CDT us Kaveh Charles MD LAB POCT ORDERABLES - DESTINEE CE Final Result Performing Organization Address City/[facility]/ZIP Co de Phone Number [facility] Department [place] [employer] [place] [address] * POCT glucose (05/25/2019 1:00 PM CDT) Glucose, POC 156 70 - 199 mg/dL [facility] Blood specimen (specimen) 05/25/2019 1:00 PM CDT 05/25/2019 1:00 PM CDT us Kaveh Charles MD LAB POCT ORDERABLES - DESTINEE CE Final Result [facility] [place] [place] [address] * POCT glucose (05/25/2019 10:41 AM CDT) Glucose, POC 170 70 - 199 mg/dL [facility] Blood specimen (specimen) 05/25/2019 10:41 AM CDT 05/25/2019 10:41 AM CDT us Kaveh Charles MD LAB POCT ORDERABLES - [place]STINEE CE Final Result Performing Organization Address [facility]/ZIP Co de Phone Number [facility] [place] [address] * Type and screen (05/25/2019 10:01 AM CDT) Gian, indirect Negative [facility] ABO Rh O Positive [facility] Blood specimen (specimen) 05/25/2019 10:01 AM CDT 05/25/2019 10:15 AM CDT Narrative [facility] - 05/25/2019 11:03 AM CDT Has the patient had Daratumumab (Darzalex) in the past 6 months?->Unknown us Paulina France NP LAB BLOOD BANK TEST ORDERAB LES Final Result Performing Organization Address [facility] Co de Phone Number [facility] [place] [address] * Prepare RBC: 2 Units (05/25/2019 9:59 AM CDT) Product code [id number] [facility] Unit Number [id number] [facility] Product Blood Type OPOS [facility] Dispense Status RETURNED [facility] Product code [id number] [facility] Unit Number [id number] [facility] Product Blood Type OPOS [facility] Dispense Status PRESUMED TRANSFUSED [facility] Blood specimen (specimen) 05/25/2019 9:59 AM CDT 05/25/2019 9:59 AM CDT Narrative [facility] - 05/26/2019 12:49 AM CDT Are special requirements needed? (all products are leukoreduced)->No Date required:-[id number] LRRBC # of [id number] Reasons:-Intra-op transfusion} Paul Kelly MD BLOOD BANK PRODUCT ORDERABLES Final Result Performing Organization Address [facility] Co de Phone Number [facility] [place] [address] * POCT glucose (05/25/2019 7:54 AM CDT) Glucose, POC 155 70 - 199 mg/dL [facility] Blood specimen (specimen) 05/25/2019 7:54 AM CDT 05/25/2019 7:54 AM CDT Kaveh Charles MD LAB POCT ORDERABLES - DESTINEE CE Final Result Performing Organization Address [facility] de Phone Number [facility] [place] [address] * (ABNORMAL) Urinalysis, microscopic only (05/25/2019 6:11 AM CDT) WBC, ur 0-5 0 - 5 /HPF [facility] RBC, ur 0-2 0 - 2 /HPF [facility] Epithelial cells, squamous, ur 1-5 0 - 5 /HPF [facility] Mucous, ur Present(A) [facility] Culture Reflex Comment Reflex conditions for urine culture (WBC >10) not met. [facility] Urine 05/25/2019 6:11 AM CDT 05/25/2019 6:27 AM CDT Berny Carrera MD LAB URINE ORDERABLES Sri l Result Performing Organization Address [facility] Co de Phone Number [facility] [place] [address] * (ABNORMAL) Urinalysis reflex to microscopic and culture Urine (05/25/2019 6:11 AM CDT) Color, ur Yellow Yellow [facility] Clarity, ur Clear Clear [facility] Specific gravity, ur 1.023 1.010 - 1.025 [facility] pH, urine 6 [facility] Protein, ur ql 1+(A) Negative [facility] Glucose, ur ql Negative Negative [facility] Ketones, ur Trace Negative [facility] Bilirubin, ur Negative Negative [facility] Blood, ur Negative Negative [facility] Urobilinogen, ur <2.0 <2.0 mg/dL [facility] Nitrite, ur Negative Negative [facility] Leukocyte esterase, ur Negative Negative [facility] UA reflex comment Reflex to microscopic UA will be performed. [facility] Urine 05/25/2019 6:11 AM CDT 05/25/2019 6:27 AM CDT Narrative [facility] - 05/25/2019 6:39 AM CDT ?? Urine pH is affected by diet, medications, systemic acid-base disturbances, and renal tubular function. ??pH may affect urinary stone formation. ??For example, urine pH below 6.0 may help reduce the tendency for calcium phosphate stones and pH greater than 6.0 may reduce the tendency for uric acid stone formation. Source: [employer]. Last revised 03-26-2017 Urine pH is affected by diet, medications, systemic acid-base disturbances, and renal tubular function. ??pH may affect urinary stone formation. ??For example, urine pH below 6.0 may help reduce the tendency for calcium phosphate stones and pH greater than 6.0 may reduce the tendency for uric acid stone formation. Source: [employer]. Last revised 03-26-2017 us Berny Carrera MD LAB MICROBIOLOGY - GENERA L ORDERABLES Final Result [facility] Department [place] [address] * POCT glucose (05/25/2019 3:34 AM CDT) Glucose, POC 164 70 - 199 mg/dL [facility] Blood specimen (specimen) 05/25/2019 3:34 AM CDT 05/25/2019 3:34 AM CDT Kaveh Charles MD LAB POCT ORDERABLES - DESTINEE CE Final Result Performing Organization Address [facility] de Phone Number [facility] [place] [address] * POCT glucose (05/24/2019 11:32 PM CDT) Glucose, POC 153 70 - 199 mg/dL [facility] Blood specimen (specimen) 05/24/2019 11:32 PM CDT 05/24/2019 11:32 PM CDT Kaveh Charles MD LAB POCT ORDERABLES - DESTINEE CE Final Result Performing Organization Address [facility] de Phone Number [facility] Department [place] [address] * Magnesium (05/24/2019 10:08 PM CDT) Pathologist [facility] Magnesium 2.2 1.4 - 2.5 mg/dL [facility] Blood specimen (specimen) 05/24/2019 10:08 PM CDT 05/24/2019 10:25 PM CDT Kaveh Charles MD LAB BLOOD ORDERABLES Final Result Performing Organization Address [facility] [place] [address] * Differential, auto (05/24/2019 10:08 PM CDT) Neutrophil abs 4.0 1.7 - 6.5 K/cumm [facility] Imm gran abs 0.0 0.0 - 0.1 K/cumm [facility] Lymphocyte abs 1.6 0.8 - 3.3 K/cumm [facility] Monocyte abs 0.7 0.2 - 0.8 K/cumm [facility] Eosinophil abs 0.1 0.0 - 0.5 K/cumm [facility] Basophil abs 0.0 0.0 - 0.1 K/cumm [facility] Neutrophil pct 62.6 % [facility] Comment: Interpretive Data Percent cell count reference ranges are not reported, since discordance with absolute values may lead to misinterpretation of CBC data. Current Interpretive Data was last revised on 2017. Imm gran pct 0.3 % [facility] Comment: Interpretive Data Percent cell count reference ranges are not reported, since discordance with absolute values may lead to misinterpretation of CBC data. Current Interpretive Data was last revised on 2017. Lymphocyte pct 24.5 % [facility] Comment: Interpretive Data Percent cell count reference ranges are not reported, since discordance with absolute values may lead to misinterpretation of CBC data. Current Interpretive Data was last revised on 2017. Monocyte pct 10.6 % [facility] Comment: Interpretive Data Percent cell count reference ranges are not reported, since discordance with absolute values may lead to misinterpretation of CBC data. Current Interpretive Data was last revised on 2017. Eosinophil pct 1.5 % [facility] Comment: Interpretive Data Percent cell count reference ranges are not reported, since discordance with absolute values may lead to misinterpretation of CBC data. Current Interpretive Data was last revised on 2017. Basophil pct 0.5 % [facility] Comment: Interpretive Data Percent cell count reference ranges are not reported, since discordance with absolute values may lead to misinterpretation of CBC data. Current Interpretive Data was last revised on 2017. Blood specimen (specimen) 05/24/2019 10:08 PM CDT 05/24/2019 10:25 PM CDT us Berny Carrera MD LAB BLOOD ORDERABLES Sri davalos Result [facility] Department [place] [address] * (ABNORMAL) Protime-INR (05/24/2019 10:08 PM CDT) PT 14.6(H) 8.6 - 13.0 sec [facility] INR 1.3(H) 0.8 - 1.2 [facility] Comment: Interpretive data Oral anticoagulant therapeutic ranges: Venous thromboembolism prophylaxis or treatment: 2.0-3.0 CARDIOLOGY Standard range: 2.0-3.0 High-intensity range: 2.5-3.5 Refer to indication-specific guidelines for appropriate target ranges for prosthetic heart valve replacement. Current interpretive data was last revised on 2019. Blood specimen (specimen) 05/24/2019 10:08 PM CDT 05/24/2019 10:18 PM CDT Kaveh Charles MD LAB BLOOD ORDERABLES Final Result [facility] Department [place] [address] * (ABNORMAL) Basic metabolic panel (05/24/2019 10:08 PM CDT) Sodium 132(L) 135 - 145 mmol/L [facility] Potassium, pl 4.3 3.3 - 4.9 mmol/L [facility] Comment:Hemolyzed; Potassium value may be falsely elevated by as much as 0.6-1.0 mmol/L. Suggest redraw and reanalysis. Chloride 100 97 - 110 mmol/L [facility] CO2 23 22 - 32 mmol/L [facility] Anion gap 9 2 - 15 mmol/L [facility] BUN 18 8 - 25 mg/dL [facility] Creatinine 0.45(L) 0.60 - 1.10 mg/dL [facility] Glucose 149 70 - 199 mg/dL [facility] Comment: Interpretive Data Fasting glucose [...] 2017. Calcium 8.2(L) 8.5 - 10.3 mg/dL [facility] Blood specimen (specimen) 05/24/2019 10:08 PM CDT 05/24/2019 10:25 PM CDT Kaveh Charles MD LAB BLOOD ORDERABLES Final Result [facility] Department [place] [address] * (ABNORMAL) CBC with auto differential (05/24/2019 10:08 PM CDT) WBC 6.5 3.8 - 9.9 K/cumm [facility] Hgb 9.4(L) 11.9 - 15.5 g/dL [facility] Hct 28.7(L) 35.6 - 45.5 % [facility] Plt 194 150 - 400 K/cumm [facility] MPV 10.3 9.1 - 12.3 fL [facility] RBC 2.98(L) 3.90 - 5.20 M/cumm [facility] MCV 96.3 81.3 - 96.4 fL [facility] MCH 31.5 27.1 - 33.3 pg [facility] MCHC 32.8 32.3 - 35.7 g/dL [facility] RDW CV 13.9 11.1 - 14.9 % [facility] RDW SD 48.5(H) 35.7 - 48.1 fL [facility] NRBC abs 0.00 0.00 - 0.01 K/cumm [facility] Blood specimen (specimen) 05/24/2019 10:08 PM CDT 05/24/2019 10:25 PM CDT Kaveh Charles MD LAB BLOOD ORDERABLES Final Result Performing Organization Address [facility] Co de Phone Number [facility] [place] [address] * POCT glucose (05/24/2019 8:59 PM CDT) Glucose, POC 159 70 - 199 mg/dL [facility] Blood specimen (specimen) 05/24/2019 8:59 PM CDT 05/24/2019 8:59 PM CDT us Kaveh Charles MD LAB POCT ORDERABLES - [place] CE Final Result Performing Organization Address [facility] [place] [place] [address] * POCT glucose (05/24/2019 3:28 PM CDT) Glucose, POC 187 70 - 199 mg/dL [facility] Blood specimen (specimen) 05/24/2019 3:28 PM CDT 05/24/2019 3:28 PM CDT us Kaveh Charles MD LAB POCT ORDERABLES - [place] CE Final Result Performing Organization Address [facility] Co de Phone Number [facility] Department [place] [employer] [address] * POCT glucose (05/24/2019 11:16 AM CDT) Glucose, POC 189 70 - 199 mg/dL [facility] Blood specimen (specimen) 05/24/2019 11:16 AM CDT 05/24/2019 11:16 AM CDT us Kaveh Charles MD LAB POCT ORDERABLES - [place] CE Final Result Performing Organization Address [facility] Co de Phone Number [facility] [place] [address] * POCT glucose (05/24/2019 7:54 AM CDT) Glucose, POC 161 70 - 199 mg/dL [facility] Blood specimen (specimen) 05/24/2019 7:54 AM CDT 05/24/2019 7:54 AM CDT us Kaveh Charles MD LAB POCT ORDERABLES - [place] CE Final Result Performing Organization Address City/[facility]/[place] [address] * POCT glucose (05/24/2019 4:54 AM CDT) Glucose, POC 155 70 - 199 mg/dL [facility] Blood specimen (specimen) 05/24/2019 4:54 AM CDT 05/24/2019 4:54 AM CDT us Kaveh Charles MD LAB POCT ORDERABLES - [place] CE Final Result Performing Organization Address City/[facility] [place] [place] [address] * POCT glucose (05/24/2019 12:43 AM CDT) Glucose, POC 155 70 - 199 mg/dL [facility] Blood specimen (specimen) 05/24/2019 12:43 AM CDT 05/24/2019 12:43 AM CDT us Kaveh Charles MD LAB POCT ORDERABLES - [place] CE Final Result Performing Organization Address City/[facility]/ZIP Co de Phone Number [facility] [place] [address] * Differential, auto (05/23/2019 10:20 PM CDT) Neutrophil abs 4.7 1.7 - 6.5 K/cumm [facility] Imm gran abs 0.0 0.0 - 0.1 K/cumm [facility] Lymphocyte abs 1.5 0.8 - 3.3 K/cumm [facility] Monocyte abs 0.7 0.2 - 0.8 K/cumm [facility] Eosinophil abs 0.0 0.0 - 0.5 K/cumm [facility] Basophil abs 0.0 0.0 - 0.1 K/cumm [facility] Neutrophil pct 66.8 % [facility] Comment: Interpretive Data Percent cell count reference ranges are not reported, since discordance with absolute values may lead to misinterpretation of CBC data. Current Interpretive Data was last revised on 2017. Imm gran pct 0.4 % [facility] Comment: Interpretive Data Percent cell count reference ranges are not reported, since discordance with absolute values may lead to misinterpretation of CBC data. Current Interpretive Data was last revised on 2017. Lymphocyte pct 21.6 % [facility] Comment: Interpretive Data Percent cell count reference ranges are not reported, since discordance with absolute values may lead to misinterpretation of CBC data. Current Interpretive Data was last revised on 2017. Monocyte pct 10.2 % [facility] Comment: Interpretive Data Percent cell count reference ranges are not reported, since discordance with absolute values may lead to misinterpretation of CBC data. Current Interpretive Data was last revised on 2017. Eosinophil pct 0.7 % [facility] Comment: Interpretive Data Percent cell count reference ranges are not reported, since discordance with absolute values may lead to misinterpretation of CBC data. Current Interpretive Data was last revised on 2017. Basophil pct 0.3 % [facility] Comment: Interpretive Data Percent cell count reference ranges are not reported, since discordance with absolute values may lead to misinterpretation of CBC data. Current Interpretive Data was last revised on 2017. Blood specimen (specimen) 05/23/2019 10:20 PM CDT 05/23/2019 10:42 PM CDT us Berny Carrera MD LAB BLOOD ORDERABLES Sri l Result [facility] Department [place] [address] * (ABNORMAL) Basic metabolic panel (05/23/2019 10:20 PM CDT) Pathologist [facility] Sodium 136 135 - 145 mmol/L [facility] Potassium, pl 3.8 3.3 - 4.9 mmol/L [facility] Chloride 101 97 - 110 mmol/L [facility] CO2 30 22 - 32 mmol/L [facility] Anion gap 5 2 - 15 mmol/L [facility] BUN 18 8 - 25 mg/dL [facility] Creatinine 0.59(L) 0.60 - 1.10 mg/dL [facility] Glucose 163 70 - 199 mg/dL [facility] Comment: Interpretive Data Fasting glucose [...] 2017. Calcium 8.8 8.5 - 10.3 mg/dL [facility] Blood specimen (specimen) 05/23/2019 10:20 PM CDT 05/23/2019 10:42 PM CDT Kaveh Charles MD LAB BLOOD ORDERABLES Final Result [facility] Department [place] [address] * (ABNORMAL) CBC with auto differential (05/23/2019 10:20 PM CDT) Pathologist [facility] WBC 7.0 3.8 - 9.9 K/cumm [facility] Hgb 9.2(L) 11.9 - 15.5 g/dL [facility] Hct 28.1(L) 35.6 - 45.5 % [facility] Plt 186 150 - 400 K/cumm [facility] MPV 9.8 9.1 - 12.3 fL [facility] RBC 2.92(L) 3.90 - 5.20 M/cumm [facility] MCV 96.2 81.3 - 96.4 fL [facility] MCH 31.5 27.1 - 33.3 pg [facility] MCHC 32.7 32.3 - 35.7 g/dL [facility] RDW CV 13.9 11.1 - 14.9 % [facility] RDW SD 49.3(H) 35.7 - 48.1 fL [facility] NRBC abs 0.00 0.00 - 0.01 K/cumm [facility] Blood specimen (specimen) 05/23/2019 10:20 PM CDT 05/23/2019 10:42 PM CDT us Kaveh Charles MD LAB BLOOD ORDERABLES Final Result Performing Organization Address City/[facility]/ZIP Co de Phone Number [facility] Department [place] [address] * POCT glucose (05/23/2019 9:43 PM CDT) [facility] Glucose, POC 173 70 - 199 mg/dL [facility] Blood specimen (specimen) 05/23/2019 9:43 PM CDT 05/23/2019 9:43 PM CDT Kaveh Charles MD LAB POCT ORDERABLES - [place] CE Final Result Performing Organization Address [facility] Co de Phone Number [facility] Department [place] [address] * POCT glucose (05/23/2019 4:35 PM CDT) Glucose, POC 165 70 - 199 mg/dL [facility] Blood specimen (specimen) 05/23/2019 4:35 PM CDT 05/23/2019 4:35 PM CDT Kaveh Charles MD LAB POCT ORDERABLES - [place] CE Final Result Performing Organization Address [facility] Co de Phone Number [facility] [place] [address] * POCT glucose (05/23/2019 11:22 AM CDT) Glucose, POC 174 70 - 199 mg/dL [facility] Blood specimen (specimen) 05/23/2019 11:22 AM CDT 05/23/2019 11:22 AM CDT Kaveh Charles MD LAB POCT ORDERABLES - [place] CE Final Result Performing Organization Address [facility] de Phone Number [facility] [place] [address] * POCT glucose (05/23/2019 8:21 AM CDT) Glucose, POC 169 70 - 199 mg/dL [facility] Blood specimen (specimen) 05/23/2019 8:21 AM CDT 05/23/2019 8:21 AM CDT Kaveh Charles MD LAB POCT ORDERABLES - [place] CE Final Result Performing Organization Address [facility] [place] [place] [address] * POCT glucose (05/23/2019 4:42 AM CDT) Glucose, POC 156 70 - 199 mg/dL [facility] Blood specimen (specimen) 05/23/2019 4:42 AM CDT 05/23/2019 4:42 AM CDT Kaveh Charles MD LAB POCT ORDERABLES - [place] CE Final Result Performing Organization Address City/[facility] Co de Phone Number [facility] Department [place] [address] * POCT glucose (05/23/2019 12:12 AM CDT) Pathologist [facility] Glucose, POC 183 70 - 199 mg/dL [facility] Blood specimen (specimen) 05/23/2019 12:12 AM CDT 05/23/2019 12:12 AM CDT Kaveh Charles MD LAB POCT ORDERABLES - [place] CE Final Result Performing Organization Address [facility] de [facility] Department [place] [address] * Differential, auto (05/22/2019 11:17 PM CDT) Neutrophil abs 5.3 1.7 - 6.5 K/cumm [facility] Imm gran abs 0.0 0.0 - 0.1 K/cumm [facility] Lymphocyte abs 1.3 0.8 - 3.3 K/cumm [facility] Monocyte abs 0.8 0.2 - 0.8 K/cumm [facility] Eosinophil abs 0.0 0.0 - 0.5 K/cumm [facility] Basophil abs 0.0 0.0 - 0.1 K/cumm [facility] Neutrophil pct 71.2 % [facility] Comment: Interpretive Data Percent cell count reference ranges are not reported, since discordance with absolute values may lead to misinterpretation of CBC data. Current Interpretive Data was last revised on 2017. Imm gran pct 0.3 % [facility] Comment: Interpretive Data Percent cell count reference ranges are not reported, since discordance with absolute values may lead to misinterpretation of CBC data. Current Interpretive Data was last revised on 2017. Lymphocyte pct 17.6 % [facility] Comment: Interpretive Data Percent cell count reference ranges are not reported, since discordance with absolute values may lead to misinterpretation of CBC data. Current Interpretive Data was last revised on 2017. Monocyte pct 10.1 % [facility] Comment: Interpretive Data Percent cell count reference ranges are not reported, since discordance with absolute values may lead to misinterpretation of CBC data. Current Interpretive Data was last revised on 2017. Eosinophil pct 0.5 % [facility] Comment: Interpretive Data Percent cell count reference ranges are not reported, since discordance with absolute values may lead to misinterpretation of CBC data. Current Interpretive Data was last revised on 2017. Basophil pct 0.3 % [facility] Comment: Interpretive Data Percent cell count reference ranges are not reported, since discordance with absolute values may lead to misinterpretation of CBC data. Current Interpretive Data was last revised on 2017. Blood specimen (specimen) 05/22/2019 11:17 PM CDT 05/22/2019 11:35 PM CDT Berny Carrera MD LAB BLOOD ORDERABLES Sri davalos Result [facility] Department [place] [address] * (ABNORMAL) Basic metabolic panel (05/22/2019 11:17 PM CDT) Sodium 136 135 - 145 mmol/L [facility] Potassium, pl 3.7 3.3 - 4.9 mmol/L [facility] Chloride 102 97 - 110 mmol/L [facility] CO2 29 22 - 32 mmol/L [facility] Anion gap 5 2 - 15 mmol/L [facility] BUN 25 8 - 25 mg/dL [facility] Creatinine 0.83 0.60 - 1.10 mg/dL [facility] Glucose 180 70 - 199 mg/dL [facility] Comment: Interpretive Data Fasting glucose [...] 2017. Calcium 8.4(L) 8.5 - 10.3 mg/dL [facility] Blood specimen (specimen) 05/22/2019 11:17 PM CDT 05/22/2019 11:34 PM CDT us Kaveh Charles MD LAB BLOOD ORDERABLES Final Result [facility] Department [place] [address] * (ABNORMAL) CBC with auto differential (05/22/2019 11:17 PM CDT) WBC 7.4 3.8 - 9.9 K/cumm [facility] Hgb 9.9(L) 11.9 - 15.5 g/dL [facility] Hct 30.3(L) 35.6 - 45.5 % [facility] Plt 203 150 - 400 K/cumm [facility] MPV 10.3 9.1 - 12.3 fL [facility] RBC 3.15(L) 3.90 - 5.20 M/cumm [facility] MCV 96.2 81.3 - 96.4 fL [facility] MCH 31.4 27.1 - 33.3 pg [facility] MCHC 32.7 32.3 - 35.7 g/dL [facility] RDW CV 13.9 11.1 - 14.9 % [facility] RDW SD 48.9(H) 35.7 - 48.1 fL [facility] NRBC abs 0.00 0.00 - 0.01 K/cumm [facility] Blood specimen (specimen) 05/22/2019 11:17 PM CDT 05/22/2019 11:35 PM CDT Kaveh Charles MD LAB BLOOD ORDERABLES Final Result Performing Organization Address [facility] Co de Phone Number [facility] [place] [address] * POCT glucose (05/22/2019 9:23 PM CDT) Glucose, POC 171 70 - 199 mg/dL [facility] Blood specimen (specimen) 05/22/2019 9:23 PM CDT 05/22/2019 9:23 PM CDT Kaveh Charles MD LAB POCT ORDERABLES - [place] CE Final Result Performing Organization Address [facility] de Phone Number [facility] [place] [employer] [place] [address] * POCT glucose (05/22/2019 5:18 PM CDT) Glucose, POC 147 70 - 199 mg/dL [facility] Blood specimen (specimen) 05/22/2019 5:18 PM CDT 05/22/2019 5:18 PM CDT Kaveh Charles MD LAB POCT ORDERABLES - [place] CE Final Result Performing Organization Address City/[facility] [place] [address] * POCT glucose (05/22/2019 11:21 AM CDT) Glucose, POC 171 70 - 199 mg/dL [facility] Blood specimen (specimen) 05/22/2019 11:21 AM CDT 05/22/2019 11:21 AM CDT us Steve Garcia MD LAB POCT ORDERABLES - DEV ICE Final Result Performing Organization Address [facility] [place] [address] * POCT glucose (05/22/2019 10:30 AM CDT) Glucose, POC 104 70 - 199 mg/dL [facility] Glucose comment 1 RN Notified [facility] Blood specimen (specimen) 05/22/2019 10:30 AM CDT 05/22/2019 10:30 AM CDT us Steve Garcia MD LAB POCT ORDERABLES - DEV ICE Final Result Performing Organization Address [facility] [place] [address] * POCT glucose (05/22/2019 8:29 AM CDT) Glucose, POC 131 70 - 199 mg/dL [facility] Blood specimen (specimen) 05/22/2019 8:29 AM CDT 05/22/2019 8:29 AM CDT us Steve Garcia MD LAB POCT ORDERABLES - DEV ICE Final Result Performing Organization Address [facility] [place] [address] * POCT glucose (05/22/2019 6:39 AM CDT) Glucose, POC 178 70 - 199 mg/dL [facility] Blood specimen (specimen) 05/22/2019 6:39 AM CDT 05/22/2019 6:39 AM CDT us Steve Garcia MD LAB POCT ORDERABLES - DEV ICE Final Result Performing Organization Address City/[facility]/[place] [address] * POCT glucose (05/22/2019 4:59 AM CDT) Glucose, POC 190 70 - 199 mg/dL [facility] Blood specimen (specimen) 05/22/2019 4:59 AM CDT 05/22/2019 4:59 AM CDT Steve Garcia MD LAB POCT ORDERABLES - DEV ICE Final Result Performing Organization Address [facility] [place] [address] * (ABNORMAL) Protime-INR (05/22/2019 4:57 AM CDT) [facility] PT 15.1(H) 8.6 - 13.0 sec [facility] INR 1.4(H) 0.8 - 1.2 [facility] Comment: Interpretive data Oral anticoagulant [...] ORDERABLES Sri l Result Performing Organization Address [facility] [place] [address] * POCT glucose (05/22/2019 12:39 AM BLOOD BANK SPECIALIST) Glucose, POC 160 70 - 199 mg/dL [facility] Blood specimen (specimen) 05/22/2019 12:39 AM BLOOD BANK SPECIALIST 05/22/2019 12:39 AM BLOOD BANK SPECIALIST us Steve Garcia MD LAB POCT ORDERABLES - DEV ICE Final Result Performing Organization Address [facility] de [facility] Department [place] [address] * Check Sample (05/21/2019 11:48 PM BLOOD BANK SPECIALIST) ABO Rh O Positive [facility] HCLL OTHER 05/21/2019 11:4 8 PM BLOOD BANK SPECIALIST 05/22/2019 12:22 AM BLOOD BANK SPECIALIST us Steve Garcia MD LAB BLOOD ORDERABLES Sri l Result Performing Organization Address [facility] Department [place] [address] * POCT glucose (05/21/2019 11:47 PM BLOOD BANK SPECIALIST) Glucose, POC 158 70 - 199 mg/dL [facility] Blood specimen (specimen) 05/21/2019 11:47 PM BLOOD BANK SPECIALIST 05/21/2019 11:47 PM BLOOD BANK SPECIALIST Steve Garcia MD LAB POCT ORDERABLES - DEV ICE Final Result Performing Organization Address [facility] de [facility] Department [place] [address] * CT Knee Left WO Contrast (05/21/2019 10:21 PM BLOOD BANK SPECIALIST) Anatomical Region Laterality Modality Lower Extremities Left Computed Tomog noel 05/21/2019 10:4 6 PM BLOOD BANK SPECIALIST Impressions 05/23/2019 9:24 AM CDT 1. ??Complex [...] cm best seen on slice location -1582.9. ??There is likely disruption of the anterior [...] CT MR Outside Consult (05/21/2019 8:41 PM BLOOD BANK SPECIALIST) Anatomical Region Laterality Modality N/A Computed Tomogra phy 05/21/2019 8:49 PM BLOOD BANK SPECIALIST Impressions 05/22/2019 9:46 AM CDT 1. ??No [...] images may or may not represent the [place] source data set and thus may contain [...] IMAGING STUDY STUDY INITIALLY PERFORMED: 05/21/2019 at [facility]. TYPE OF STUDY: Multiple CT images of [...] IMAGING STUDY STUDY INITIALLY PERFORMED: 05/21/2019 at [facility]. TYPE OF STUDY: Multiple CT images of [...] images may or may not represent the [place] source data set and thus may contain [...] Cervical Spine WO Contrast (05/21/2019 8:29 PM BLOOD BANK SPECIALIST) Anatomical Region Laterality Modality Spine N/A Computed Tomogra phy 05/21/2019 8:43 PM BLOOD BANK SPECIALIST Addenda Addendum by Isreal Izaguirre MD PhD on 02/27/2021 9:33 PM BLOOD BANK SPECIALIST Patient had follow up with ENT 12/19/20. [...] Electronically signed by: Isreal Izaguirre M.D, PHD [facility] Nahun Malone MD IMG CT PROCEDURES Edite d Result - Final * XR Knee Left 1 or 2 Views (05/21/2019 8:26 PM BLOOD BANK SPECIALIST) Anatomical Region Laterality Modality Lower Extremities, Knee Left Computed Radiography 05/21/2019 8:37 PM BLOOD BANK SPECIALIST Impressions 05/23/2019 7:07 AM CDT 1. ??Highly [...] 1 or 2 Views (05/21/2019 8:26 PM BLOOD BANK SPECIALIST) Anatomical Region Laterality Modality Body, Pelvis N/A Computed Radiogr aphy 05/21/2019 8:37 PM BLOOD BANK SPECIALIST Impressions 05/23/2019 7:07 AM CDT 1. ??Highly [...] 2 or More Views (05/21/2019 8:25 PM BLOOD BANK SPECIALIST) Anatomical Region Laterality Modality Lower Extremities, Thigh, Femur Left Computed Radiography 05/21/2019 8:37 PM BLOOD BANK SPECIALIST Impressions 05/23/2019 7:07 AM CDT 1. ??Highly [...] XR Chest 1 View (05/21/2019 8:24 PM BLOOD BANK SPECIALIST) Anatomical Region Laterality Modality Body, Chest N/A Computed Radiogr aphy 05/21/2019 8:29 PM BLOOD BANK SPECIALIST Impressions 05/23/2019 7:07 AM CDT Comparison is [...] * (ABNORMAL) Differential, auto (05/21/2019 7:43 PM BLOOD BANK SPECIALIST) Neutrophil abs 7.8(H) 1.7 - 6.5 K/cumm [facility] Imm gran abs 0.0 0.0 - 0.1 K/cumm [facility] Lymphocyte abs 1.4 0.8 - 3.3 K/cumm [facility] Monocyte abs 0.6 0.2 - 0.8 K/cumm [facility] Eosinophil abs 0.0 0.0 - 0.5 K/cumm [facility] Basophil abs 0.0 0.0 - 0.1 K/cumm [facility] Neutrophil pct 78.3 % [facility] Comment: Interpretive Data Percent cell count reference ranges are not reported, since discordance with absolute values may lead to misinterpretation of CBC data. Current Interpretive Data was last revised on 2017. Imm gran pct 0.5 % [facility] Comment: Interpretive Data Percent cell count reference ranges are not reported, since discordance with absolute values may lead to misinterpretation of CBC data. Current Interpretive Data was last revised on 2017. Lymphocyte pct 14.2 % [facility] Comment: Interpretive Data Percent cell count reference ranges are not reported, since discordance with absolute values may lead to misinterpretation of CBC data. Current Interpretive Data was last revised on 2017. Monocyte pct 6.6 % [facility] Comment: Interpretive Data Percent cell count reference ranges are not reported, since discordance with absolute values may lead to misinterpretation of CBC data. Current Interpretive Data was last revised on 2017. Eosinophil pct 0.1 % [facility] Comment: Interpretive Data Percent cell count reference ranges are not reported, since discordance with absolute values may lead to misinterpretation of CBC data. Current Interpretive Data was last revised on 2017. Basophil pct 0.3 % [facility] Comment: Interpretive Data Percent cell count reference ranges are not reported, since discordance with absolute values may lead to misinterpretation of CBC data. Current Interpretive Data was last revised on 2017. Blood specimen (specimen) 05/21/2019 7:43 PM BLOOD BANK SPECIALIST 05/21/2019 8:08 PM BLOOD BANK SPECIALIST Alessandro Malone MD LAB BLOOD ORDERABLES Fi nal Result Performing Organization Address [facility] [place] [address] * aPTT (05/21/2019 7:43 PM BLOOD BANK SPECIALIST) aPTT 32 25 - 37 sec [facility] Comment: Interpretive data Heparin therapeutic range: 60-90 seconds Range based on correlation with therapeutic heparin activity range of 0.3-0.7 units/ml. Current interpretive data was last revised on 2019. Blood specimen (specimen) 05/21/2019 7:43 PM BLOOD BANK SPECIALIST 05/21/2019 7:52 PM BLOOD BANK SPECIALIST Narrative [facility] - 05/21/2019 8:23 PM BLOOD BANK SPECIALIST THE COLLECTION LOCATION IS [address] Alessandro Malone MD LAB BLOOD ORDERABLES Fi nal Result Performing Organization Address [facility] - [place] de Phone Number [facility] [place] [address] * (ABNORMAL) Protime-INR (05/21/2019 7:43 PM BLOOD BANK SPECIALIST) PT 33.0(H) 8.6 - 13.0 sec [facility] INR 3.0(H) 0.8 - 1.2 [facility] Comment: Interpretive data Oral anticoagulant therapeutic ranges: Venous thromboembolism prophylaxis or treatment: 2.0-3.0 CARDIOLOGY Standard range: 2.0-3.0 High-intensity range: 2.5-3.5 Refer to indication-specific guidelines for appropriate target ranges for prosthetic heart valve replacement. Current interpretive data was last revised on 2019. Blood specimen (specimen) 05/21/2019 7:43 PM BLOOD BANK SPECIALIST 05/21/2019 7:52 PM BLOOD BANK SPECIALIST Narrative [facility] - 05/21/2019 8:23 PM BLOOD BANK SPECIALIST THE COLLECTION LOCATION IS [facility] [id number] Alessandro Malone MD LAB BLOOD ORDERABLES Fi nal Result Performing Organization Address [facility] [place] [place] [address] * Type and screen (05/21/2019 7:43 PM BLOOD BANK SPECIALIST) Pathologist [facility] ABO Rh O Positive [facility] Gian, indirect Negative [facility] Blood specimen (specimen) 05/21/2019 7:43 PM BLOOD BANK SPECIALIST 05/21/2019 10:01 PM BLOOD BANK SPECIALIST Narrative [facility] - 05/21/2019 10:57 PM BLOOD BANK SPECIALIST Has the patient had Daratumumab (Darzalex) in the past 6 months?->Unknown THE COLLECTION LOCATION IS [facility]03R Alessandro Malone MD LAB BLOOD BANK TEST ORD ERABLES Final Result Performing Organization Address [facility] Phone Number [facility] [place] [address] * (ABNORMAL) Comprehensive metabolic panel (05/21/2019 7:43 PM BLOOD BANK SPECIALIST) [facility] Sodium 137 135 - 145 mmol/L [facility] Potassium, pl 3.8 3.3 - 4.9 mmol/L [facility] Chloride 103 97 - 110 mmol/L [facility] CO2 25 22 - 32 mmol/L [facility] Anion gap 9 2 - 15 mmol/L [facility] BUN 17 8 - 25 mg/dL [facility] Creatinine 0.53(L) 0.60 - 1.10 mg/dL [facility] Glucose 180 70 - 199 mg/dL [facility] Comment: Interpretive Data Fasting glucose [...] 2017. Calcium 9.2 8.5 - 10.3 mg/dL [facility] Bilirubin, total 1.0 0.1 - 1.2 mg/dL [facility] Protein, pl 7.1 6.5 - 8.5 g/dL [facility] Albumin 3.6 3.5 - 5.0 g/dL [facility] Alk phos 78 40 - 130 Units/L [facility] ALT 38 7 - 45 Units/L [facility] AST 64(H) 10 - 45 Units/L [facility] Blood specimen (specimen) 05/21/2019 7:43 PM BLOOD BANK SPECIALIST 05/21/2019 8:07 PM BLOOD BANK SPECIALIST Narrative [facility] - 05/21/2019 8:34 PM BLOOD BANK SPECIALIST THE COLLECTION LOCATION IS [address] Alessandro Malone MD LAB BLOOD ORDERABLES nal Result [facility] Department [place] [address] * (ABNORMAL) CBC with auto differential (05/21/2019 7:43 PM BLOOD BANK SPECIALIST) WBC 9.9 3.8 - 9.9 K/cumm [facility] Hgb 12.0 11.9 - 15.5 g/dL [facility] Hct 36.7 35.6 - 45.5 % [facility] Plt 259 150 - 400 K/cumm [facility] MPV 10.3 9.1 - 12.3 fL [facility] RBC 3.82(L) 3.90 - 5.20 M/cumm [facility] MCV 96.1 81.3 - 96.4 fL [facility] MCH 31.4 27.1 - 33.3 pg [facility] MCHC 32.7 32.3 - 35.7 g/dL [facility] RDW CV 13.7 11.1 - 14.9 % [facility] RDW SD 48.4(H) 35.7 - 48.1 fL [facility] NRBC abs 0.00 0.00 - 0.01 K/cumm [facility] Blood specimen (specimen) 05/21/2019 7:43 PM BLOOD BANK SPECIALIST 05/21/2019 8:08 PM BLOOD BANK SPECIALIST Narrative [facility] - 05/21/2019 8:16 PM BLOOD BANK SPECIALIST THE COLLECTION LOCATION IS [address] us Alessandro Malone MD LAB BLOOD ORDERABLES Fi nal Result [facility] Department [place] [address] * (ABNORMAL) ECG 12-LEAD (05/21/2019 7:40 PM BLOOD BANK SPECIALIST) Narrative [facility] - 05/21/2019 7:40 PM BLOOD BANK SPECIALIST Berny Carrera MD ? 05/21/2019 ??7:40 PM [...] ORDERABLES Final R esult Performing Organization Address [facility] Co de Phone Number [facility] * XR Outside Reference (05/21/2019 7:33 PM BLOOD BANK SPECIALIST) Impressions [facility] - 05/21/2019 7:33 PM BLOOD BANK SPECIALIST These images are for Reference purposes only and have not been reviewed by [facility] Radiology. ??There will be no report generated by a [facility] Radiologist. Narrative [facility] - 05/21/2019 7:33 PM BLOOD BANK SPECIALIST EXAMINATION: ??Images For Reference Purposes Only Alessandro Malone MD IMG XR PROCEDURES Final Result Performing Organization Address [facility] de Phone Number [email or web address] * POCT glucose (05/21/2019 7:27 PM BLOOD BANK SPECIALIST) Glucose, POC 171 70 - 199 mg/dL [facility] Blood specimen (specimen) 05/21/2019 7:27 PM BLOOD BANK SPECIALIST 05/21/2019 7:27 PM BLOOD BANK SPECIALIST Notinfile Unknown LAB POCT ORDERABLES - DEVICE F inal Result Performing Organization Address [facility] de Phone Number [facility] Department [place] [address] documented in this encounter Visit Diagnoses Diagnosis Open fracture of left distal femur (CMS/HCC) ([facility])- Primary Closed fracture of distal end of left femur, unspecified fracture morphology, initial encounter ([facility]) Other type I or II open fracture of distal end of left femur, initial encounter ([facility]) Closed displaced comminuted fracture of shaft of left femur (HCC) Closed displaced comminuted fracture of shaft of left femur, initial encounter (HCC) documented in this encounter Admitting Diagnoses Diagnosis [...] oral, 2 times daily, First dose on [facility] 05/21/19 at 2222 Given 05/27/2019 8:14 AM CDT 25 mg Given 05/26/2019 9:38 PM CDT 25 mg Given 05/26/2019 9:28 AM CDT 25 mg dextrose (D10W) 10% bolus 250 mL 250 mL, intravenous, at 1,000 mL/hr, Administer over 15 Minutes, Every 15 min PRN, blood glucose less than 70 mg/dL and UNABLE to swallow/take PO glucose/juice., Starting on [place] 05/22/19 at 0011, After treatment for hypoglycemia, [...] glucose less than 70 mg/dL, Starting on [place] 05/22/19 at 0011, If patient is alert [...] Call MD for each episode of hypoglycemia. EMBROIDERY FINISHER STATES GLUTOSE-15 CONTAINS GLUCOSE 40% W/W (50% [...] Given 05/25/2019 7:55 AM CDT 60 mg EPINEPHrine 0.15 mg in bacteriostatic 0.9% sodium chloride 30 mL solution 60 mL, topical, Once, On Thu05/25/19 at 1100, For 1 dose, Intra-Op Given 05/25/2019 1:02 PM CDT 30 mL Surgi jean Site famotidine (PEPCID) tablet 20 mg 20 [...] Given 05/26/2019 9:29 AM CDT 0.2 mg insulin lispro (HumaLOG) injection 1-2 Units [...] CDT 1 Units L eft Lower Abdomen levothyroxine (SYNTHROID) tablet 25 mcg 25 mcg, oral, Daily, First dose on 05/22/19 at 0900, Administer on an empty stomach, preferably 30 minutes before breakfast. Take 4 hours apart from antacids, iron and calcium products. Given 05/27/2019 8:14 AM CDT 25 mcg Given 05/26/2019 9:28 AM CDT 25 mcg Given 05/25/2019 7:55 AM CDT 25 mcg losartan (COZAAR) tablet 100 mg 100 mg, oral, Daily, First dose on 05/22/19 at 0900 Given 05/27/2019 8:14 AM CDT 100 mg Given 05/26/2019 9:29 AM CDT 100 mg Given 05/25/2019 7:55 AM CDT 100 mg lovastatin (MEVACOR) tablet 10 mg 10 mg, oral, Nightly, First dose on 05/22/19 at 2100, Take with food Given 05/26/2019 9:33 PM CDT 10 mg Given 05/25/2019 9:05 PM CDT 10 mg Given 05/24/2019 9:49 PM CDT 10 mg ondansetron (ZOFRAN) injection 4 mg 4 [...] Given 05/27/2019 6:18 AM CDT 5 mg ramelteon (ROZEREM) tablet 8 mg 8 mg, oral, Nightly PRN, sleep, Starting on Thu05/24/19 at 2356, Indications: Sleep-Onset InsomniaIndications:Sleep-Onset Insomnia Given 05/25/2019 12:01 AM CDT 8 mg senna-docusate (PERICOLACE) 8.6-50 mg per tablet 2 tablet 2 tablet, oral, 2 times daily, First dose on Thu05/25/19 at 2100, Hold for diarrhea., Indications: constipationIndications:constipation Given 05/27/2019 8:13 AM CDT 2 table ts Given 05/26/2019 9:32 PM CDT 2 tablets Given 05/26/2019 9:28 AM CDT 2 tablets sodium chloride 0.9 % irrigation As needed, Starting on Thu05/25/19 at 1303, Intra-Op Given 05/25/2019 1:03 PM CDT 4,000 mL Surgical Site Given 05/25/2019 12:00 PM CDT 1,000 mL S urgical Site sodium chloride 0.9% flush 0.5-20 mL 0.5-20 mL, intra-catheter, Every 8 hours scheduled, First dose on Thu05/25/19 at 2200, Flush volume based on line type and size. Given 05/27/2019 2:26 PM CDT 10 mL Given 05/27/2019 5:29 AM CDT 10 mL Given 05/26/2019 9:39 PM CDT 10 mL sterile water irrigation As needed, Starting on Thu05/25/19 at 1304, Intra-Op Given 05/25/2019 1:04 PM CDT 1,000 mL Other (Comment) warfarin (COUMADIN) tablet 2 mg 2 mg, oral, Daily (for warfarin), First dose on Thu05/26/19 at 1800, Target INR: 2 - 3, [...] at 0045 0002 (Given - Provider: Mary Lamar, ARMANI)0612 (Given - Provider: Mary Lamar, ARMNAI)1012 (MAR Hold - Provider: Automatic Transfer Provider - Reason: Patient not available)1200 (Dose Auto Held - Provider: Automatic Transfer Provider)1723 (MAR Unhold - Provider: Ryann Mcqueen, ARMANI)1814 (Given - Provider: Ryann Mcqueen, ARMANI)2302 (Given - Provider: Moriah Hall, ARMANI) 0609 (Not Given - Provider: Moriah Hall RN - Reason: Medication not available)1147 (Given - Provider: Gen Oleary, ARMANI)1820 (Given - Provider: Gen Oleary, ARMANI)2313 (Given - Provider: Denisa Jean, ARMANI) 0618 (Given - Provider: Denisa Galdamez, ARMANI)1157 (Given - Provider: Kendy Nicole, ARMANI) amLODIPine (NORVASC) tablet 5 mg 5 mg, [...] daily, First dose on 05/21/19 at 2222 0755 (Given - Provider: Holly Leonard RN)1012 (MAR Hold - Provider: Automatic Transfer Provider - Reason: Patient not available)1723 (MAY Unhold - Provider: Ryann Mcqueen, ARMANI)2249 (Not Given - Provider: Moriah Hall RN - Reason: Contraindicated) 0928 (Given - Provider: Gen Oleary, ARMANI)2138 (Given - Provider: Julissa Eaton, ARMANI) 0814 (Given - Provider: Kendy Nicole, [...] after last taya-operative dose., Indications: Prophylaxis, Surgical 210 (New Bag - Provider: Moriah Hall, ARMANI) [...] 0755 (Given - Provider: Holly Leonard RN)1012 (MAY Hold - Provider: Automatic Transfer Provider - Reason: Patient not available)1723 (MAR Unhold - Provider: Ryann Mcqueen, RN) 0929 (Given - Provider: Gen Oleary, [...] Indications: Heartburn 210 (Given - Provider: Moriah Hall, ARMANI) 0928 (Given - Provider: Gen Oleary, ARMANI)2133 [...] Ryann Mcqueen, ARMANI)2108 (Not Given - Provider: Moirah Hall RN - Reason: Contraindicated)2304 (Not Given - Provider: Moriah Hall RN - Reason: Contraindicated) 0610 (Not Given - Provider: Moriah Hall RN - Reason: Contraindicated)0928 (Given - Provider: Gen Oleary RN)1147 (Given - Provider: Gen Oleary RN - Comment: BG 202)1546 (Not Given - Provider: Gen Oleary, ARMANI - Reason: Order parameters not met)2209 (Given [...] Pain 1847 (Not Given - Provider: Ryann Mcqueen RN - Reason: Medication not available)2302 (Given - Provider: Moriah Hall, ARMANI) Lactated Ringer's (LR) bolus 1,000 mL (COMPLETED) [...] 0755 (Given - Provider: Holly Leonard RN)1012 (MAY Hold - Provider: Automatic Transfer Provider - Reason: Patient not available)1723 (MAY Unhold - Provider: Ryann Mcqueen, ARMANI) 0928 (Given - Provider: Gen Oleary, ARMANI) 0814 (Given - Provider: Kendy Nicole, ARAMNI) losartan (COZAAR) tablet 100 mg 100 mg, oral, Daily, First dose on Thu05/22/19 at 0900 0755 (Given - Provider: Holly Leonard RN)1012 (MAY Hold - Provider: Automatic Transfer Provider - Reason: Patient not available)1723 (MAY Unhold - Provider: Ryann Mcqueen RN) 0929 (Given - Provider: Gen Oleary, ARMANI) 0814 (Given - Provider: Kendy Nicole, ARMANI) lovastatin (MEVACOR) tablet 10 mg 10 mg, oral, Nightly, First dose on Thu05/22/19 at 2100, Take with food 1012 (MAY Hold - Provider: Automatic Transfer Provider - Reason: Patient not available)1723 (MAY Unhold - Provider: Ryann Mcqueen, ARMANI)2105 (Given - Provider: Moriah Hall, ARMANI) 2133 (Given - Provider: Julissa Eaton RN) metoprolol (LOPRESSOR) injection 5 mg (COMPLETED) 5 mg, intravenous, Administer over 1 Minutes, Once, On Thu05/27/19 at 0445, For 1 dose 0525 (Given - Provider: Denisa Galdamez, ARMANI) metoprolol (LOPRESSOR) tablet 12.5 mg (COMPLETED) [...] Moriah Hall RN)1147 (Given - Provider: Gen Oleary, ARMANI)1543 (Given - Provider: Gen Oleary, ARMANI)1820 (Given - Provider: Gen Oleary, ARMANI)2210 (Given - Provider: Julissa Eaton, ARMANI) 0245 (Given - Provider: Denisa Galdamez, ARMANI)0618 (Given - Provider: Denisa Galdamez, ARMANI)1018 (Given - Provider: Kendy Nicole, ARMANI)1426 (Given [...] Provider)1723 (MAR Unhold - Provider: Ryann Mcqueen RN)210 (Given - Provider: Moriah Hall RN) sodium [...] Floor 1523 (New Bag - Provider: Lindsay Negron RN) 0428 (New Bag - Provider: Moriah Hall RN)1842 (Stopped - Provider: Gen Oleary, ARMANI) PRN Medication Order 05/25/2019 05/26/2019 05/27/2019 camphor-menthoL (SARNA) 0.5-0.5 % lotion topical, Every 2 hours PRN, other, itching, Starting on Thu05/25/19 at 1723, Apply to affected area: other, [...] episode of hypoglycemia., Indications: hypoglycemic disorder 101 ([facility] Hold - Provider: Automatic Transfer Provider - Reason: Patient not available)1722 ([facility] Unhold - Provider: Ryann Mcqueen RN) dextrose [...] Call MD for each episode of hypoglycemia. EMBROIDERY FINISHER STATES GLUTOSE-15 CONTAINS GLUCOSE 40% W/W (50% W/V), Indications: hypoglycemic disorder 101 ([facility] Hold - Provider: Automatic Transfer Provider - Reason: Patient not available)1722 ([facility] Unhold - Provider: Ryann Mcqueen RN) glucagon injection 1 mg 1 mg, intramuscular, Administer over 1 Minutes, Every 30 min PRN, low blood sugar, blood glucose less than 70 mg/dL AND no IV access AND unable to take PO glucose/jiuce., Starting on 05/22/19 at 0011, After Glucagon is administered, position [...] each episode of hypoglycemia., Indications: Hypoglycemia 1012 (MAY Hold - Provider: Automatic Transfer Provider - Reason: Patient not available)1722 (MAY Unhold - Provider: Ryann Mcqueen, ARMANI) HYDROmorphone [...] Indications: nausea and vomiting 1121 (Return to Cabinet - Provider: Kendy Nicole, ARMANI) ondansetron ODT (ZOFRAN-ODT) disintegrating tablet 4 mg(Linked Group 2) 4 mg, oral, Every 6 hours PRN, nausea, vomiting, Starting on Thu05/25/19 at 1723, Indications: nausea and vomiting 1121 (See Alternative - Provider: Kendy Nicole, ARMANI) oxyCODONE (ROXICODONE) tablet 5 mg (CANCELED) 5 mg, oral, Every 4 hours PRN, 1st line for pain, Starting on Thu05/22/19 at 0011, Indications: Pain 1012 (MAY Hold - Provider: Automatic Transfer Provider - Reason: Patient not available)1722 (MAR Unhold - Provider: Ryann Mcqueen, ARMANI)1815 (Given - Provider: Ryann Mcqueen RN) 0145 (Given - Provider: Moriah Hall RN) polyethylene glycol (MIRALAX) packet 17 g 17 g, oral, Daily PRN, constipation, Starting on Thu05/25/19 at 1723, Indications: constipation ramelteon (ROZEREM) tablet 8 mg 8 mg, oral, Nightly PRN, sleep, Starting on Thu05/24/19 at 2356, Indications: Sleep-Onset Insomnia 0001 (Given - Provider: Mary Lamar, ARMANI)1012 (MAY Hold - Provider: Automatic Transfer Provider - Reason: Patient not available)1723 (MAY Unhold - Provider: Ryann Mcqueen RN) sodium [...] Call MD for each episode of hypoglycemia. EMBROIDERY FINISHER STATES GLUTOSE-15 CONTAINS GLUCOSE 40% W/W (50% [...] Count Last Ordered Date First Ordered Date metoprolol (LOPRESSOR) injection 5 mg 1 oxyCODONE (ROXICODONE) tablet 5 mg 2 201905/22/2019 acetaminophen (TYLENOL) tablet 650 mg 1 01/2020 bupivacaine 0.25%-EPINEPHrin e 1:200,000 PF 60 mL and ketorolac 15 mg solution 1 05/25/2019 camphor-menthoL (SARNA) 0.5-0.5 % lotion 1 05/25/2019 ceFAZolin (ANCEF) 2,000 mg/2 0 mL in sterile water (premix) 2,000 mg 4 05/25/2019 05/21/19 20 famotidine (PEPCID) tablet 20 mg 1 05/25/19 20 gabapentin (NEURONTIN) capsule 300 mg 1 01/2020 haloperidol (HALDOL) injection 1 mg 1 05/24 HYDROmorphone (DILAUDID) injection 0.2 mg 3 05/25/2019 05/22/2019 HYDROmorphone (DILAUDID) injection 0.4 mg 2 05/25/2019 05/22/2019 insulin lispro (HumaLOG) inj ection 1-3 Units 1 05/25/2019 ketorolac (TORADOL) injection 15 mg 2 05/24 Lactated Ringer's (LR) bolus 1,000 mL 2 01/2020 metoprolol (LOPRESSOR) tablet 12.5 mg 2 01/2020 midazolam (VERSED) injection 2 mg 1 020 ondansetron (ZOFRAN) injection 4 mg 4 05/2405/21/2019 ondansetron ODT (ZOFRAN-ODT) disintegrating tablet 4 mg 1 05/25/2019 polyethylene glycol (MIRALAX) packet 17 g 1 05/25/2019 senna-docusate (PERICOLACE) 8.6-50 mg per tablet 2 tablet 1 05/25/2019 sodium chloride 0.9% flush 0.5-20 mL 4 05/1405/22/2019 sodium chloride 0.9% infusion 1 05/25/2019 tranexamic acid (CYKLOKAPRON ) 1,000 mg/10 mL (100 mg/mL) solution 2,000 mg 1 05/25/2019 vancomycin 1500 mg/515 mL in sodium chloride 0.9% (premix) 1,500 mg 2 05/25/2019 warfarin (COUMADIN) tablet 2 mg 1 0 ramelteon (ROZEREM) tablet 8 mg 1 0 acetaminophen (TYLENOL) tablet 1,000 mg 1 0 05/22/2019 amLODIPine (NORVASC) tablet 5 mg 1 05/22/19 dextrose (D10W) 10% bolus 250 mL 1 05/22/19 dextrose (GLUTOSE) 40 % gel 15 g 1 05/22/19 dextrose 5% and sodium chlor nuno 0.45% with potassium chloride 20 mEq/L infusion (premix) 1 05/22/[address] (CYMBALTA) ext ended release capsule 60 mg 1 05/22/2019 enoxaparin (LOVENOX) syringe 30 mg 1 2019 glucagon injection 1 mg 1 05/22/2019 insulin lispro (HumaLOG) inj ection 1-2 Units 1 05/22/2019 levothyroxine (SYNTHROID) tablet 25 mcg 1 0 05/22/2019 losartan (COZAAR) tablet 100 mg 1 0 lovastatin (MEVACOR) tablet 10 mg 1 020 naloxone (NARCAN) 0.4 mg/mL injection 0.04-0.4 mg 1 05/22/2019 sodium chloride 0.9 % irrigation 1 05/22/19 20 sterile water irrigation 1 05/22/2019 carvediloL (COREG) tablet 25 mg 1 0 morphine injection 4 mg 1 05/21/2019 phytonadione (VITAMIN K1) 10 mg in dextrose 5% 50 mL IVPB 1 05/21/2019 prothrombin complex four fac tor (KCENTRA) injection 2,242 Units 1 05/21/2019 prothrombin complex four fac tor (KCENTRA) injection [...] 05/21/2019 documented in this encounter Care Teams Quilting Supervisor Relationship Specialty Start Date End Date Wilber Cleaning Jr., MD [address] [place] [address] PCP - General 07/03/16 07/15/20 documented as of this encounter
--- OUTSIDE RECORDS SUMMARY | 2024-03-13 01:17 | XMS_ITS | Encounter Summary ---
Author Organization [facility] Address [address] [place] [address] Phone Care Team Providers Care Fabric Inspector Name Role Phone Hermila Calhoun MD, Wilber Martinez Primary Care Provider Reason for Visit * Reason Onset Date Comments Anticoagulation 01/11/2019 Encounter Details Date Type Department Care Team (Latest Contact Info) Description 01/11/2019 Anticoagulation Telephone Call [facility] Cardiology [address] [facility] [address] [place] [address] [place] [id number] Cathleen Walker MD [address] [facility] [address] [place], [place] [id number] Atrial fibrillation, unspecified type (CMS/HCC) Social History Tobacco Use Types Packs/Day Years Used Date Smoking Tobacco: Never Smokeless Tobacco: Never Comments Unknown Sex and Gender Information Value Date Recorded Sex Assigned at Not on file Legal Sex Female 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 * Telephone Encounter - Paulina Bright RN - 01/11/2019 10:03 AM CDT 01/11-no change in dose; recheck in 4wks, due 02/07. RM documented in this encounter Plan of Treatment Not on file documented as of this encounter Visit Diagnoses Diagnosis Atrial fibrillation, unspecified type (HCC) documented in this encounter Care Teams Fabric Inspector Relationship Specialty Start Date End Date Wilber Cleaning Jr., MD [address] [place] [id number] PCP - General 07/03/16 07/15/20 documented as of this encounter
--- OUTSIDE RECORDS SUMMARY | 2024-03-13 01:17 | XMS_ITS | Encounter Summary ---
Author Organization [facility] Address [address] [place] [address] Phone Care Team Providers Care General Duty Nurse Name Role Phone Hermila Calhoun MD, Wilber Martinez Primary Care Provider Encounter Details Date Type Department Care Team (Latest Contact Info) Description 04/23/2018 Anticoagulation Telephone Call [facility] Cardiology [address] [facility] [address] [place] [address] Catarina Huerta MD [address] [facility] [address] [place] [address] Atrial fibrillation, unspecified type (CMS/HCC) Social History Tobacco Use Types Packs/Day Years Used Date Smoking Tobacco: Never Smokeless Tobacco: Never Comments Unknown Sex and Gender Information Value Date Recorded Sex Assigned at Not on file Legal Sex Female 4:20 AM CANDY DEPARTMENT MANAGER Gender Identity Not on file Sexual Orientation Not on file documented as of this encounter Miscellaneous Notes * Telephone Encounter - Gail Redman MA - 04/23/2018 2:21 PM CANDY DEPARTMENT MANAGER I spoke to the patient who verbalizes understanding of result and orders given. Y DEPARTMENT MANAGER * Telephone Encounter - Margarita Méndez RN - 04/23/2018 9:30 AM CANDY DEPARTMENT MANAGER No change, recheck 2 weeks. jf Y DEPARTMENT MANAGER documented in this encounter Plan of Treatment Not on file documented as of this encounter Procedures Procedure Name Priority Date/Time Associated Diagnosis Comments PROTIME-INR Routine 04/22/2018 documented in this encounter Results * (ABNORMAL) Protime-INR (04/22/2018) INR 2.20(A) 0.9 - 1.1 [facility] Blood specimen (specimen) 04/22/2018 us Catarina Huerta MD LAB BLOOD ORDERABLES Final R esult [facility] documented in this encounter Visit Diagnoses Diagnosis Atrial fibrillation, unspecified type (HCC) documented in this encounter Care Teams General Duty Nurse Relationship Specialty Start Date End Date Wilber Cleaning Jr., MD [address] [place] [id number] PCP - General 07/03/16 07/15/20 documented as of this encounter
--- OUTSIDE RECORDS SUMMARY | 2024-03-13 01:17 | XMS_ITS | Encounter Summary ---
Author Organization [facility] Address [address] [place] [address] Phone Care Team Providers Care Clinical Informaticist Name Role Phone Hermila Calhoun MD, Wilber Martinez Primary Care Provider Encounter Details Date Type Department Care Team (Latest Contact Info) Description 08/19/2018 Anticoagulation Telephone Call [facility] Cardiology [address] [facility] Medical Office Building [address] [place] [address] Catarina Huerta MD [address] [facility] [address] [place] [address] Atrial fibrillation, unspecified type (CMS/HCC) Social History Tobacco Use Types Packs/Day Years Used Date Smoking Tobacco: Never Smokeless Tobacco: Never Comments Unknown Sex and Gender Information Value Date Recorded Sex Assigned at Not on file Legal Sex Female 4:20 AM THREAT ANALYST Gender Identity Not on file Sexual Orientation Not on file documented as of this encounter Miscellaneous Notes * Telephone Encounter - Juan Manuel Fragoso MA - 08/19/2018 12:25 PM CDT I left a message for Prema Pearce with result and orders. * Addendum Note - Juan Manuel Fragoso MA - 08/19/2018 10:08 AM CDTAddended by: JUAN MANUEL FRAGOSO on: 08/19/2018 10:08 AM Modules accepted: Orders * Telephone Encounter - Apolonia Sinha RN - 08/19/2018 8:05 AM CDT NO change recheck 2 weeks thanks documented in this encounter Plan of Treatment Not on file documented as of this encounter Procedures Procedure Name Priority Date/Time Associated Diagnosis Comments PROTIME-INR Routine 12/07/2018 11:04 AM CDT Atrial fibrillation, unspecified type (CMS/HCC) PROTIME-INR Routine 11/30/2018 9:30 AM CDT Atrial fibrillation, unspecified type (CMS/HCC) PROTIME-INR Routine 11/17/2018 10:45 AM CDT Atrial fibrillation, unspecified type (CMS/HCC) PROTIME-INR Routine 11/11/2018 9:16 AM CDT Atrial fibrillation, unspecified type (CMS/HCC) PROTIME-INR Routine 11/04/2018 9:36 AM CDT Atrial fibrillation, unspecified type (CMS/HCC) PROTIME-INR Routine 09/30/2018 8:39 AM CDT Atrial fibrillation, unspecified type (CMS/HCC) PROTIME-INR Routine 09/03/2018 11:44 AM CDT Atrial fibrillation, unspecified type (CMS/HCC) documented in this encounter Results * (ABNORMAL) Protime-INR (12/07/2018 11:04 AM CDT) INR 2.5(H) [facility] Comment: Reference Range ? 0.9-1.1 Moderate-intensity Warfarin Therapy 2.0-3.0 Higher-intensity Warfarin Therapy ?? 3.0-4.0 PT 25.4(H) 9.0 - 11.5 sec [facility] Comment: For more information on this test, go to: http://[facility].Qalendra/faq/IBF838 Blood specimen (specimen) 12/07/2018 11:04 AM CDT 12/07/2018 11:04 AM CDT Narrative Resulting Agency Comment Performing Organization Information: ?Site ID: [place] ?Name: [facility] ?Address: [facility] [address] [place] [address] ?Director: Christian Wheeler Catarina Huerta MD LAB BLOOD ORDERABLES Final R esult [facility] [place] * (ABNORMAL) Protime-INR (11/30/2018 9:30 AM CDT) INR 3.7(H) [facility] - Comment: Reference Range ? 0.9-1.1 Moderate-intensity Warfarin Therapy 2.0-3.0 Higher-intensity Warfarin Therapy ?? 3.0-4.0 PT 37.7(H) 9.0 - 11.5 sec [facility] - Comment: For more information on this test, go to: http://[facility].Qalendra/faq/KDQ770 Blood specimen (specimen) 11/30/2018 9:30 AM CDT 11/30/2018 9:31 AM CDT Narrative Resulting Agency Comment Performing Organization Information: ?Site ID: ?Name: [facility] ?Address: [address] [address] [place] [address] ?Director: Christian Wheeler us Catarina Huerta MD LAB BLOOD ORDERABLES Final R esult Performing Organization Address [facility] Co de Phone Number [facility] [place], [place] * (ABNORMAL) Protime-INR (11/17/2018 10:45 AM CDT) INR 1.7(H) [facility] - Comment: Reference Range ? 0.9-1.1 Moderate-intensity Warfarin Therapy 2.0-3.0 Higher-intensity Warfarin Therapy ?? 3.0-4.0 PT 17.5(H) 9.0 - 11.5 sec [facility] - Comment: For more information on this test, go to: http://[facility]/faq/TOY041 Blood specimen (specimen) 11/17/2018 10:45 AM CDT 11/17/2018 10:45 AM CDT Narrative Resulting Agency Comment Performing Organization Information: ?Site ID: ?Name: [facility] ?Address: [facility] [place] [address] ?Director: Christian Wheeler Catarina Huerta MD LAB BLOOD ORDERABLES Final R esult Performing Organization Address [facility] Co de Phone Number [facility] [place], [place] * (ABNORMAL) Protime-INR (11/11/2018 9:16 AM CDT) INR 3.4(H) [facility] - Comment: Reference Range ? 0.9-1.1 Moderate-intensity Warfarin Therapy 2.0-3.0 Higher-intensity Warfarin Therapy ?? 3.0-4.0 PT 34.2(H) 9.0 - 11.5 sec [facility] [place] Comment: For more information on this test, go to: http://Pak[facility]/faq/QSL411 Blood specimen (specimen) 11/11/2018 9:16 AM CDT 11/11/2018 9:17 AM CDT Narrative Resulting Agency Comment Performing Organization Information: ?Site ID: [place] ?Name: [facility] ?Address: [facility] [address] [place] [address] ?Director: Christian Wheeler Catarina Huerta MD LAB BLOOD ORDERABLES Final R esult Performing Organization Address [facility] de Phone Number [facility] [place], [place] * (ABNORMAL) Protime-INR (11/04/2018 9:36 AM CDT) INR 3.6(H) [facility] [place] Comment: Reference Range ? 0.9-1.1 Moderate-intensity Warfarin Therapy 2.0-3.0 Higher-intensity Warfarin Therapy ?? 3.0-4.0 PT 36.1(H) 9.0 - 11.5 sec [facility] Comment: For more information on this test, go to: http://education.Qalendra/faq/YSG340 Blood specimen (specimen) 11/04/2018 9:36 AM CDT 11/04/2018 9:36 AM CDT Narrative Resulting Agency Comment Performing Organization Information: ?Site ID: [place] ?Name: [facility] ?Address: [facility] [address] [place] [address] ?Director: Christian Wheeler Catarina Huerta MD LAB BLOOD ORDERABLES Final R esult Performing Organization Address City/[facility] Co de Phone Number [facility] [place], [place] * (ABNORMAL) Protime-INR (09/30/2018 8:39 AM CDT) INR 2.5(H) [facility] [place] Comment: Reference Range ? 0.9-1.1 Moderate-intensity Warfarin Therapy 2.0-3.0 Higher-intensity Warfarin Therapy ?? 3.0-4.0 PT 25.4(H) 9.0 - 11.5 sec [facility] [place] Comment: For more information on this test, go to: http://[facility].Qalendra/faq/UBH201 Blood specimen (specimen) 09/30/2018 8:39 AM CDT 09/30/2018 8:40 AM CDT Narrative Resulting Agency Comment Performing Organization Information: ?Site ID: ?Name: [facility] ?Address: [address] [place] [address] ?Director: Christian Wheeler us Catarina Huerta MD LAB BLOOD ORDERABLES Final R esult [facility] [place] * (ABNORMAL) Protime-INR (09/03/2018 11:44 AM CDT) INR 2.7(H) [facility] [place] Comment: Reference Range ? 0.9-1.1 Moderate-intensity Warfarin Therapy 2.0-3.0 Higher-intensity Warfarin Therapy ?? 3.0-4.0 PT 26.5(H) 9.0 - 11.5 sec [facility] [place] Comment: For more information on this test, go to: http://[facility].Qalendra/faq/SAS988 Blood specimen (specimen) 09/03/2018 11:44 AM CDT 09/03/2018 11:44 AM CDT Narrative Resulting Agency Comment Performing Organization Information: ?Site ID: [place] ?Name: [facility] ?Address: [address] [address] ?Director: Darryl Keys D.O., MPH us Catarina Huerta MD LAB BLOOD ORDERABLES Final R esult [facility] [place] documented in this encounter Visit Diagnoses Diagnosis Atrial fibrillation, unspecified type (HCC) documented in this encounter Care Teams Clinical Informaticist Relationship Specialty Start Date End Date Wilber Cleaning Jr., MD [address] [place] [address] PCP - General 07/03/16 07/15/20 documented as of this encounter
--- OUTSIDE RECORDS SUMMARY | 2024-03-13 01:17 | XMS_ITS | Encounter Summary ---
Author Organization [facility] Address [address] [place] [address] Phone Care Team Providers Care Window Systems Administrator Name Role Phone Hermila Calhoun MD, Wilber Martinez Primary Care Provider Encounter Details Date Type Department Care Team (Latest Contact Info) Description 02/25/2019 Anticoagulation Telephone Call [facility] Cardiology [address] [facility] Advanced Medicine 8th [place] [address] [place] [address] Cathleen Walker MD [address] [facility] [address] [place], [place] [id number] Atrial fibrillation, unspecified type (CMS/HCC) Social History Tobacco Use Types Packs/Day Years Used Date Smoking Tobacco: Never Smokeless Tobacco: Never Comments Unknown Sex and Gender Information Value Date Recorded Sex Assigned at Not on file Legal Sex Female 4:20 AM PILE DRIVER OPERATOR Gender Identity Not on file Sexual Orientation Not on file documented as of this encounter Plan of Treatment Not on file documented as of this encounter Visit Diagnoses Diagnosis Atrial fibrillation, unspecified type (HCC) documented in this encounter Care Teams Window Systems Administrator Relationship Specialty Start Date End Date Wilber Cleaning Jr., MD Formerly named [facility] [place] [address] PCP - General 07/03/16 07/15/20 documented as of this encounter
--- OUTSIDE RECORDS SUMMARY | 2024-03-13 01:17 | XMS_ITS | Encounter Summary ---
Author Organization [facility] Address [address] [place] [address] Phone Care Team Providers Care Public Opinion Survey Taker Name Role Phone Hermila Calhoun MD, Wilber Martinez Primary Care Provider Encounter Details Date Type Department Care Team (Latest Contact Info) Description 04/15/2018 Anticoagulation Telephone Call [facility] Cardiology [address] [facility] Medical Office Building [address] [place] [address] Catarina Huerta MD [address] [facility] [address] [place] [address] Atrial fibrillation, unspecified type (CMS/HCC) Social History Tobacco Use Types Packs/Day Years Used Date Smoking Tobacco: Never Smokeless Tobacco: Never Comments Unknown Sex and Gender Information Value Date Recorded Sex Assigned at Not on file Legal Sex Female 4:20 AM RADIO OPERATOR Gender Identity Not on file Sexual Orientation Not on file documented as of this encounter Miscellaneous Notes * Telephone Encounter - Gail Redman MA - 04/15/2018 2:22 PM RADIO OPERATOR I spoke to the patient who verbalizes understanding of result and orders given. O OPERATOR * Telephone Encounter - Apolonia Sinha, ARMANI - 04/15/2018 9:41 AM CST NO change recheck 1 week thanks O OPERATOR documented in this encounter Plan of Treatment Not on file documented as of this encounter Procedures Procedure Name Priority Date/Time Associated Diagnosis Comments PROTIME-INR Routine 04/15/2018 documented in this encounter Results * (ABNORMAL) Protime-INR (04/15/2018) INR 2.30(A) 0.9 - 1.1 EXTERNAL LAB Blood specimen (specimen) us Historical Provider LAB BLOOD ORDERABLES [place] Result EXTERNAL LAB documented in this encounter Visit Diagnoses Diagnosis Atrial fibrillation, unspecified type (HCC) documented in this encounter Care Teams Public Opinion Survey Taker Relationship Specialty Start Date End Date Wilber Cleaning Jr., MD [address] [place] [address] PCP - General 07/03/16 07/15/20 documented as of this encounter
--- OUTSIDE RECORDS SUMMARY | 2024-03-13 01:17 | XMS_ITS | Encounter Summary ---
Author Organization [facility] Address [address] [place] [address] Phone Care Team Providers Care Varnish Finisher Name Role Phone Hermila Calhoun MD, Wilber Martinez Primary Care Provider Encounter Details Date Type Department Care Team (Late st Contact Info) Description 01/06/2019 Telephone [facility] Cardiology [address] [facility] Advanced Medicine 8th [place] [address] [place] [address] Cathleen Walker MD [address] [facility] [address] [place] [address] Social History Tobacco Use Types Packs/Day Years Used Date Smoking Tobacco: Never Smokeless Tobacco: Never Comments Unknown Sex and Gender Information Value Date Recorded Sex Assigned at Not on file Legal Sex Female 4:20 AM FISHERIES TECHNICAL OFFICER Gender Identity Not on file Sexual Orientation Not on file documented as of this encounter Miscellaneous Notes * Telephone Encounter - Paulina Bright RN - 01/12/2019 11:00 AM CDT completed * Telephone Encounter - Paulina Bright RN - 01/10/2019 11:27 AM CDT Thanks for asking for that!! * Telephone Encounter - Gail Redman RMA - 01/10/2019 11:05 AM CDT I called to remind pt about her INR (due 01/04) She said she is aware. I mentioned BMP also needed,and she reports she had a full workup done at PCP the week of 12/20. Nothing in care everywhere. Called PCP Dr. Cleaning [phone] and had to leave a message. * Telephone Encounter - Paulina Bright RN - 01/06/2019 9:25 AM CDT No results, needs INR on 01/04 as well, when call remind pt * Telephone Encounter - Paulina Bright RN - 01/06/2019 9:24 AM CDT ----- Message from Paulina Bright RN sent at 12/27/2018 10:59 AM CDT ----- Bmp ordered ov DW 12/27 Due in 1wk, for increase in meds documented in this encounter Plan of Treatment Not on file documented as of this encounter Visit Diagnoses Not on filedocumented in this encounter Care Teams Varnish Finisher Relationship Specialty Start Date End Date Wilber Cleaning Jr., MD [address] [place] [address] PCP - General 07/03/16 07/15/20 documented as of this encounter
--- OUTSIDE RECORDS SUMMARY | 2024-03-13 01:17 | XMS_ITS | Encounter Summary ---
Author Organization [facility] Address [address] [place] [address] Phone Care Team Providers Care Publicity Consultant Name Role Phone Hermila Calhoun MD, Wilber Martinez Primary Care Provider Encounter Details Date Type Department Care Team (Latest Contact Info) Description 08/23/2018 Orders Only [facility] Scanning, Provider Social History Tobacco Use Types Packs/Day Years Used Date Smoking Tobacco: Never Smokeless Tobacco: Never Comments Unknown Sex and Gender Information Value Date Recorded Sex Assigned at Not on file Legal Sex Female 4:20 AM LENS GRINDER Gender Identity Not on file Sexual Orientation Not on file documented as of this encounter Plan of Treatment Not on file documented as of this encounter Procedures Procedure Name Priority Date/Time Associated Diagnosis Comments CARDIOLOGY DOCUMENT SCAN 08/23/2018 documented in this encounter Results * SCAN - CARDIOLOGY (08/23/2018) Anatomical Region Laterality Modality Other us Provider Scanning CV CARDIAC SERVICES PROCEDURES Final Result documented in this encounter Visit Diagnoses Not on filedocumented in this encounter Care Teams Publicity Consultant Relationship Specialty Start Date End Date Wilber Cleaning Jr., MD [address] [place] [address] PCP - General 07/03/16 07/15/20 documented as of this encounter
--- OUTSIDE RECORDS SUMMARY | 2024-03-13 01:17 | XMS_ITS | Encounter Summary ---
Author Organization [facility] Address [address] [place] [address] Phone Care Team Providers Care Commercial Litigation Attorney Name Role Phone Hermila Calhoun MD, Wilber Martinez Primary Care Provider Encounter Details Date Type Department Care Team (Latest Contact Info) Description 09/06/2018 Anticoagulation Telephone Call [facility] Cardiology [address] [facility] Medical Office Building [address] [place] [address] Catarina Huerta MD [address] [facility] [address] [place] [address] Atrial fibrillation, unspecified type (CMS/HCC) Social History Tobacco Use Types Packs/Day Years Used Date Smoking Tobacco: Never Smokeless Tobacco: Never Comments Unknown Sex and Gender Information Value Date Recorded Sex Assigned at Not on file 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 * Telephone Encounter - Apolonia Sinha, ARMANI - 09/06/2018 8:04 AM CDT No change recheck 1 month thanks documented in this encounter Plan of Treatment Not on file documented as of this encounter Procedures Procedure Name Priority Date/Time Associated Diagnosis Comments PROTIME-INR Routine 09/03/2018 documented in this encounter Results * (ABNORMAL) Protime-INR (09/03/2018) INR 2.70(A) 0.9 - 1.1 EXTERNAL LAB Blood specimen (specimen) 09/03/2018 us Historical Provider LAB BLOOD ORDERABLES [place] Result EXTERNAL LAB documented in this encounter Visit Diagnoses Diagnosis Atrial fibrillation, unspecified type (HCC) documented in this encounter Care Teams Commercial Litigation Attorney Relationship Specialty Start Date End Date Wilber Cleaning Jr., MD [address] [place] [address] PCP - General 07/03/16 07/15/20 documented as of this encounter
--- OUTSIDE RECORDS SUMMARY | 2024-03-13 01:17 | XMS_ITS | Encounter Summary ---
Author Organization [facility] Address [address] [place] [address] Phone Care Team Providers Care Human Resources Manager Name Role Phone Hermila Calhoun MD, Wilber Martinez Primary Care Provider Encounter Details Date Type Department Care Team (Late st Contact Info) Description 08/04/2018 Telephone [facility] Cardiology [address] [facility] Medical Office Building [address] [place] [address] Catarina Huerta MD [address] [address] Social History Tobacco Use Types Packs/Day Years Used Date Smoking Tobacco: Never Smokeless Tobacco: Never Comments Unknown Sex and Gender Information Value Date Recorded Sex Assigned at Not on file 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 She is keeping log of BP's * Telephone Encounter - Crissy Jones. - 08/06/2018 10:26 AM CDT lmor for patient that I have an available slot on August 23 at 1:30pm if she can make it. * Telephone Encounter - Apolonia Sinha RN - 08/06/2018 9:09 AM CDT Please schedule Per LS. Thanks * Telephone Encounter - Catarina Huerta MD - 08/06/2018 8:27 AM CDT Sounds good. Let's find her a spot in the next few weeks. * Telephone Encounter - Margarita Méndez RN - 08/04/2018 4:18 PM CDT FYI--Pt reported she would contact PMD until Dr. Huerta returns to the office and call with updateafter she has spoken with PMD. * Telephone Encounter - Michel Kinsey MD PhD - 08/04/2018 3:58 PM CDT She should be seen in clinic by cards or PMD for a BP check. I wouldn't increase her meds for thosereadings in the setting of dizziness and unsteadiness without seeing her. Plus Dr Huerta's last note mentioned a recent fall and she felt recent BP issues were related to ongoing stress. * Telephone Encounter - Margarita Méndez RN - 08/04/2018 3:32 PM CDT Please review in Dr. Huerta's absence. Pt will also f/u with PMD in the interim. I spoke with pt who reports she has been checking BP's and diastolic BP has been high 90's-119. HR has been 96-114. Pt is on Amlodipine 5 mg daily, Losartan 100 mg daily, and Sotalol 80 mg twice daily. Pt reports she was in atrial fib when she last saw PMD 2 weeks ago. Pt reports she has been having lightheadedness, had eye surgery on 07/29, is feeling unsteady. Pt denies chest pain or other discomfort. She does get out of breath with walking or strenuous activity. Pt reports she was started on thyroid med by PMD earlier this year. Pt reports f/u labs are perfect . * Telephone Encounter - Gail Redman MA - 08/04/2018 3:18 PM CDT She wants to schedule with LS next week because she has concerns over BP. Reports BP 132/115 average and HR is over 100 to 119 documented in this encounter Plan of Treatment Not on file documented as of this encounter Visit Diagnoses Not on filedocumented in this encounter Care Teams Human Resources Manager Relationship Specialty Start Date End Date Wilber Cleaning Jr., MD [address] [place] [address] PCP - General 07/03/16 07/15/20 documented as of this encounter
--- OUTSIDE RECORDS SUMMARY | 2024-03-13 01:17 | XMS_ITS | Encounter Summary ---
Author Organization [facility] Address [address] [place] [address] Phone Care Team Providers Care Yarn Weigher Name Role Phone Hermila Calhoun MD, Wilber Martinez Primary Care Provider Encounter Details Date Type Department Care Team (Latest Contact Info) Description 08/11/2018 Anticoagulation Telephone Call [facility] Cardiology [address] [facility] Medical Office Building [address] [place] [address] Catarina Huerta MD [address] [facility] [address] [place] [address] Atrial fibrillation, unspecified type (CMS/HCC) Social History Tobacco Use Types Packs/Day Years Used Date Smoking Tobacco: Never Smokeless Tobacco: Never Comments Unknown Sex and Gender Information Value Date Recorded Sex Assigned at Not on file 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 * Telephone Encounter - Margarita Méndez RN - 08/11/2018 4:21 PM CDT No change, recheck 1 week. jf documented in this encounter Plan of Treatment Not on file documented as of this encounter Visit Diagnoses Diagnosis Atrial fibrillation, unspecified type (HCC) documented in this encounter Care Teams Yarn Weigher Relationship Specialty Start Date End Date Wilber Cleaning Jr., MD [facility] [place] [address] PCP - General 07/03/16 07/15/20 documented as of this encounter
--- OUTSIDE RECORDS SUMMARY | 2024-03-13 01:17 | XMS_ITS | Encounter Summary ---
Author Organization [facility] Address [address] [place] [address] Phone Care Team Providers Care Hide Splitter Name Role Phone Hermila Calhoun MD, Wilber Martinez Primary Care Provider Reason for Visit * Cardiology (Routine) - Closed Specialty Diagnoses / Procedures Referred By Contac t Referred To Contact Diagnoses AF (paroxysmal atrial fibrillation) (CMS/HCC) (HCC) Dyspnea, unspecified type Procedures Transthoracic Echo Complete W Doppler/CF Cassandra Fish MD Phone: tel: fax: [facility] Referral ID Status Reason Start Date Expiration Date Visits Re quested Visits Authorized [id number] Closed 12/27/2018 07/07/2020 1 1 Encounter Details Date Type Department Care Team (Late st Contact Info) Description 12/31/2018 9:30 AM CDT Ancillary Procedure [facility] [address] [facility] [address] [place] [address] Cassandra Fish MD [address] [facility] [address] [place] [address] AF (paroxysmal atrial fibrillation) (CMS/HCC); Dyspnea, unspecified type Discharge Disposition: Discharge to home or self care Social History Tobacco Use Types Packs/Day Years Used Date Smoking Tobacco: Never Smokeless Tobacco: Never Comments Unknown Sex and Gender Information Value Date Recorded Sex Assigned at Not on file 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 Gender Identity Not on file Sexual Orientation Not on file documented as of this encounter Discharge Disposition Disposition Code Departure Means Destination Discharge to home or self care documented in this encounter Plan of Treatment Not on file documented as of this encounter Procedures Procedure Name Priority Date/Time Associated Diagnosis Comments TRANSTHORACIC ECHO (TTE) COMPLETE W DOPPLER/CF W CONTRAST Routine 12/31/2018 10:33 AM CDT AF (paroxysmal atrial fibrillation) (CMS/HCC) Dyspnea, unspecified type documented in this encounter Results * TRANSTHORACIC ECHO (TTE) COMPLETE W DOPPLER/CF W CONTRAST (12/31/2018 10:33 AM CDT) Anatomical Region Laterality Modality Ultrasound 12/31/2018 9:30 AM CDT Narrative 01/03/2019 7:45 AM CDT Patient name: Prema Pearce Date of test: 12/31/2018 Type of test: TTE w/Doppler [facility] #: [id number] Date of : 1940 (F) Radiology Aide: Maryann Kamara RDMS, T, RDCS Referring Physician: CASSANDRA FISH MD Contrast Agent: 1.1 ml Optison Administered, (1.9 ml wasted). Contrast Administered by: Nan Mejia RN Supervised/Interpreted by: Nathen Ortiz MD Diagnosis: Location: [facility] Reason for test: Atrial Fibrillation MV Structure: moderately thickened, ?MV Motion: Normal, ?? Mitral Annulus: markedly calcified AV Structure: tricuspid and is stenotic, ?? AV Motion: restricted Aotic root: Normal, ?TM: Normal, ?? PV: Normal Valvular Vegetations: none seen, ?Mass/Thrombi: none seen RA: Normal Measurements: ?M-Mode ?Normal ? Aotic Root: ? <3.8 ? LA: ? <3.8 ? RV: ? <2.8 ? LV(ED): ? <5.7 ? LV(ES): ? Variable ?2D Linear Normal ? Aotic Root: 2.5 cm ?<3.6 ? Ao Indexed: 1.3 cm/M2 <2.0 ? LA: ? 4.4 cm ?<3.8 ? RV: ? 3.8 cm ?<4.2 ? LV(ED): ? 4.5 cm ?<5.3 ? LV(ES): ? 3.0 cm ?<3.5 ?2D Vol. ?? Normal ?Indexed ?? Indexed Normal RA: ? 53.0 ml ? 27.6 ml/M2 ?9-33 ? LA: ? 134.0 ml ?69.7 ml/M2 ?16-34 ? RV: ? <11.6 ? LV(ED): ? 94.0 ml ?? 46-106 ?48.9 ml/M2 ?<62 ? LV(ES): ? 46.0 ml ?? 14-42 ? 23.9 ml/M2 ?<25 ?3D Vol. ? Indexed Normal LV(ED): ? 30.7 mL/m2 ?? <62 ? LV(ES): ? 16.6 mL/m2 ?? <24 ? LV EF: 51 % ?? (Normal: >=54%) ?? LV Septum: 1.0 cm ?(Normal: <0.9 cm) Wall Motion Scoring (1=Normal 2=Hypo 3=Akinetic 4=Dyskin./Aneurysm 0=Not visualized) Parasternal Long [place]:MAS=2 BAS=2 MP=2 BP=2 Parasternal Short [place]:MAS=2 MS=2 MS=2 MP=2 ML=2 MA=2 Apical 4 Chambers:=2 MS=2 BS=2 BL=2 MS=2 AL=2 Apical 2 Chambers:AI=2 MS=2 BI=2 BA=2 MA=2 AA=2 LV Global Longitudinal Strain: -13.5% ??(Normal <-19%) RV Global Longitudinal Strain: LV Function: Mild Global reduction in LV Ejection Fraction (EF=41-53%) RV Function: Normal Septal Motion: Normal Pericardial Effusion: none seen Atrial Septum: Normal DOPPLER/COLOR FOLOW DOPPLER RESULTS: Diastolic Function: Grade I, altered relax. w/N. LA pres. Tricuspid Valve: mild TV regurgitation Pulmonic Valve: Mild KY AV Regurgitation: No AR seen AV Stenosis: Mild-Mod AV Area: 1.2 cm2 AV Pressure Gradient (mmHg): Mean: 10, Peak:18 MV Regurgitation: Mild MR MV Stenosis: no MS MV Area: ??cm2 MV Pressure Gradient (mmHg): Mean: 0 MV ERO: ??cm Regurg. Vol.: ??ml/beat Regurg. Frac.: ??% PA Pressure: 28 mmHg DOPPLER/COLOR FOLOW DOPPLER COMMENTS: No AR seen, Mild MR, Mild-Mod , no MS, mild TV regurgitation, Mild KY. Diastolic function: Grade I, altered relax. w/N. LA pres. LVOTd=1.9 cm; TVI=20/45=0.44 CONTRAST: 1.1 ml Optison Administered, (1.9 ml wasted). SUMMARY: Mild to Moderate Aortic Stenosis LA is markedly dilated. Atrial fibrillation; ??Thickened and/or calcified mitral valve leaflets and mitral apparatus; Reduced global LV Myocardial longitudinal function and LV strain pattern. Mild Mitral Regurgitation. Mild Tricuspid Regurgitation with normal estimated Pulmonary Artery Systolic Pressure. LV cavity size is normal. Mild Global LV Systolic Dysfunction. No recent study available for comparison; Confirmed on ??01/03/2019 - 07:45:41 by Nathen Ortiz MD By signing this report, the attending journey lineman certifies that he or she has personally supervised and interpreted the echocardiogram and has reviewed and or edited and agrees with the written comments contained within the report. Procedure Note Nathen Ortiz MD - 01/03/2019 Patient name: Prema Pearce Date of test: 12/31/2018 Type of test: TTE /[facility] #: [id number] Date of : 1940 (F) Radiology Aide: Maryann Kamara RDMS, RVT, RDCS Referring Physician: CASSANDRA FISH MD Contrast Agent: 1.1 ml Optison Administered, (1.9 ml wasted). Contrast Administered by: Nan Mejia RN Supervised/Interpreted by: Nathen Ortiz MD Diagnosis: Location: [facility] Reason for test: Atrial Fibrillation MV Structure: moderately thickened, MV Motion: Normal, Mitral Annulus: markedly calcified AV Structure: tricuspid and is stenotic, AV Motion: restricted Aotic root: Normal, TM: Normal, PV: Normal Valvular Vegetations: none seen, Mass/Thrombi: none seen RA: Normal Measurements: M-Mode Normal Aotic Root: <3.8 LA: <3.8 RV: <2.8 LV(ED): <5.7 LV(ES): Variable 2D Linear Normal Aotic Root: 2.5 cm <3.6 Ao Indexed: 1.3 cm/M2 <2.0 LA: 4.4 cm <3.8 RV: 3.8 cm <4.2 LV(ED): 4.5 cm <5.3 LV(ES): 3.0 cm <3.5 2D Vol. Normal Indexed Indexed Normal RA: 53.0 ml 27.6 ml/M2 9-33 LA: 134.0 ml 69.7 ml/M2 16-34 RV: <11.6 LV(ED): 94.0 ml 46-106 48.9 ml/M2 <62 LV(ES): 46.0 ml 14-42 23.9 ml/M2 <25 3D Vol. Indexed Normal LV(ED): 30.7 mL/m2 <62 LV(ES): 16.6 mL/m2 <24 LV EF: 51 % (Normal: >=54%) LV Septum: 1.0 cm (Normal: <0.9 cm) Wall Motion Scoring (1=Normal 2=Hypo 3=Akinetic 4=Dyskin./Aneurysm 0=Not visualized) Parasternal Long [place]:MAS=2 BAS=2 MP=2 BP=2 Parasternal Short [place]:MAS=2 MS=2 MS=2 MP=2 ML=2 MA=2 Apical 4 Chambers:=2 MS=2 BS=2 BL=2 MS=2 AL=2 Apical 2 Chambers:AI=2 MS=2 BI=2 BA=2 MA=2 AA=2 LV Global Longitudinal Strain: -13.5% (Normal <-19%) RV Global Longitudinal Strain: LV Function: Mild Global reduction in LV Ejection Fraction (EF=41-53%) RV Function: Normal Septal Motion: Normal Pericardial Effusion: none seen Atrial Septum: Normal DOPPLER/COLOR FOLOW DOPPLER RESULTS: Diastolic Function: Grade I, altered relax. w/N. LA pres. Tricuspid Valve: mild TV regurgitation Pulmonic Valve: Mild KY AV Regurgitation: No AR seen AV Stenosis: Mild-Mod AV Area: 1.2 cm2 AV Pressure Gradient (mmHg): Mean: 10, Peak:18 MV Regurgitation: Mild MR MV Stenosis: no MS MV Area: cm2 MV Pressure Gradient (mmHg): Mean: 0 MV ERO: cm Regurg. Vol.: ml/beat Regurg. Frac.: % PA Pressure: 28 mmHg DOPPLER/COLOR FOLOW DOPPLER COMMENTS: No AR seen, Mild MR, Mild-Mod , no MS, mild TV regurgitation, Mild [place]. Diastolic function: Grade I, altered relax. w/N. LA pres. LVOTd=1.9 cm; TVI=20/45=0.44 CONTRAST: 1.1 ml Optison Administered, (1.9 ml wasted). SUMMARY: Mild to Moderate Aortic Stenosis LA is markedly dilated. Atrial fibrillation; Thickened and/or calcified mitral valve leaflets and mitral apparatus; Reduced global LV Myocardial longitudinal function and LV strain pattern. Mild Mitral Regurgitation. Mild Tricuspid Regurgitation with normal estimated Pulmonary Artery Systolic Pressure. LV cavity size is normal. Mild Global LV Systolic Dysfunction. No recent study available for comparison; Confirmed on 01/03/2019 - 07:45:41 by Nathen Ortiz MD By signing this report, the attending journey lineman certifies that he or she has personally supervised and interpreted the echocardiogram and has reviewed and or edited and agrees with the written comments contained within the report. Result [facility] Cassandra Mccormick MD CV ECHO PROCEDUR ES Final Result documented in this encounter Visit Diagnoses Diagnosis AF (paroxysmal atrial fibrillation) (CMS/HCC) (HCC) Atrial fibrillation Dyspnea, unspecified type documented in this encounter Administered Medications Inactive Administered Medications - up to 3 most recent administrations Medication Order MAR Action Action Date Dose Rate Site perflutren protein-a (OPTISON) 3 mL in sodium chloride 0.9% 8 mL syringe 1-8 mL, intravenous, Once in imaging, contrast, Starting on Thu12/31/18 at 1014, For 1 dose, Intra-Procedure (CV) Given 12/31/2018 10:24 AM CDT 3 mL documented in this encounter Care Teams Hide Splitter Relationship Specialty Start Date End Date Wilber Cleaning Jr., MD [address] [place] [address] PCP - General 07/03/16 07/15/20 documented as of this encounter
--- OUTSIDE RECORDS SUMMARY | 2024-03-13 01:17 | XMS_ITS | Encounter Summary ---
Author Organization [facility] Address [address] [place] [address] Care Team Providers Care Fabrication Inspector Name Role Phone Hermila Calhoun MD, Wilber Martinez Primary Care Provider Ryann Galdamez Primary Care Provider [phone]- [phone] Encounter Details Date Type Department Care Team (Late st Contact Info) Description 05/21/2019 Orders Only [facility] Health Information Management [address] [place] [address] Scanning, Provider Social History Tobacco Use Types Packs/Day Years Used Date Smoking Tobacco: Never Smokeless Tobacco: Never AUDIT-C Answer Date Recorded Q1: How often do you have a drink containing alc ohol? Never 09/13/2020 Average Number of Drinks Not on file 021 Q3: How often do you have si x or more drinks on one occasion? 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 Aislinn Goldsmith, POLICE RECORDS CLERK 06/09/2019 06/09/2019 06/09/2019 4:20 PM C DT documented as of this encounter Care Teams Fabrication Inspector Relationship Specialty Start Date End Date Wilber Cleaning Jr., MD [address] [place] [address] PCP - General 07/03/16 07/15/20 Ryann Galdamez PA [address] [place] [address] PCP - General Program Director Substance Abuse 07/16/20 04/01/21 documented as of this encounter
--- OUTSIDE RECORDS SUMMARY | 2024-03-13 01:17 | XMS_ITS | Encounter Summary ---
Author Organization [facility] Address [address] [place] [address] Phone Care Team Providers Care Grinding Machine Tender Name Role Phone Hermila Calhoun MD, Wilber Martinez Primary Care Provider Encounter Details Date Type Department Care Team (Latest Contact Info) Description 05/07/2018 Anticoagulation Telephone Call [facility] Cardiology [address] [facility] Medical Office [address] [place] [address] Catarina Huerta MD [address] [facility] [address] [place] [address] Atrial fibrillation, unspecified type (CMS/HCC) Social History Tobacco Use Types Packs/Day Years Used Date Smoking Tobacco: Never Smokeless Tobacco: Never Comments Unknown Sex and Gender Information Value Date Recorded Sex Assigned at Not on file 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 LINE DISPATCH OPERATOR * Telephone Encounter - Margarita Méndez RN - 05/07/2018 8:46 AM PIPELINE DISPATCH OPERATOR No change, recheck 4 weeks. Please call pt. jf LINE DISPATCH OPERATOR LINE DISPATCH OPERATOR documented in this encounter Plan of Treatment Not on file documented as of this encounter Procedures Procedure Name Priority Date/Time Associated Diagnosis Comments PROTIME-INR Routine 05/06/2018 documented in this encounter Results * (ABNORMAL) Protime-INR (05/06/2018) INR 2.10(A) 0.9 - 1.1 [facility] Blood specimen (specimen) us Catarina Huerta MD LAB BLOOD ORDERABLES Final R esult [facility] documented in this encounter Visit Diagnoses Diagnosis Atrial fibrillation, unspecified type (HCC) documented in this encounter Care Teams Grinding Machine Tender Relationship Specialty Start Date End Date Wilber Cleaning Jr., MD [address] [place] [address] PCP - General 07/03/16 07/15/20 documented as of this encounter
--- OUTSIDE RECORDS SUMMARY | 2024-03-13 01:17 | XMS_ITS | Encounter Summary ---
Author Organization 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 Aislinn Goldsmith, RECREATIONAL ASSISTANT 06/09/2019 06/09/2019 06/09/2019 4:20 PM C DT documented as of this encounter Care Teams Director Engineering Relationship Specialty Start Date End Date Wilber Cleaning Jr., MD [address] [place] [address] PCP - General 07/03/16 07/15/20 Ryann Galdamez PA [address] [place] [place] [address] PCP - General Production Supply Equipment Tender 07/16/20 04/01/21 documented as of this encounter
--- OUTSIDE RECORDS SUMMARY | 2024-03-13 01:17 | XMS_ITS | Encounter Summary ---
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 Aislinn Goldsmith, PHOTO BOOTH OPERATOR 06/09/2019 06/09/2019 06/09/2019 4:20 PM C DT documented as of this encounter Care Teams Medical Billing Coder Relationship Specialty Start Date End Date Wilber Cleaning Jr., MD [address] [place] [address] PCP - General 07/03/16 07/15/20 Ryann Galdamez PA [address] [place] [address] PCP - General Dry Plasterer 07/16/20 04/01/21 documented as of this encounter
--- OUTSIDE RECORDS SUMMARY | 2024-03-13 01:17 | XMS_ITS | Encounter Summary ---
Author Organization [facility] Address [address] [place] [address] Phone Care Team Providers Care Paint Roller Winder Name Role Phone Hermila Calhoun MD, India Martinez Primary Care Provider Reason for Visit * Cardiology (Routine) - Closed Specialty Diagnoses / Procedures Referred By Indra muñoz Referred To Contact Cardiology Diagnoses 6m Procedures RETURN [facility] [address] [place] [address] Phone: tel: Catarina Huerta MD [address] [address] Phone: tel: fax: Referral ID Status Reason Start Date Expiration Date Visits Re quested Visits Authorized [id number] Closed 06/01/2018 08/13/2018 5 5 Encounter Details Date Type Department Care Team (Latest Contact Info) Description 06/02/2018 1:15 PM CDT Office Visit [facility] Cardiology [address] [place] [address] Medical Office Building [address] [place] [id number] Catarina Huerta MD [address] [id number] Persistent atrial fibrillation (CMS/HCC) (Primary Dx); Essential hypertension; Hyperlipidemia, unspecified hyperlipidemia type Social History Tobacco Use Types Packs/Day Years Used Date Smoking Tobacco: Never Smokeless Tobacco: Never Comments Unknown Sex and Gender Information Value Date Recorded Sex Assigned at Not on file 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 Gender Identity Not on file Sexual Orientation Not on file documented as of this encounter Last Filed Vital Signs Vital Sign Reading Time Taken Comments Blood Pressure 138/92 06/02/2018 1:18 PM CDT Pulse 110 06/02/2018 1:18 PM CDT Temperature - - Respiratory Rate - - Oxygen Saturation 97% 06/02/2018 1:18 PM CDT Inhaled Oxygen Concentration - - Weight 88.4 kg (194 lb 12.8 oz) 06/02/2018 1:18 PM CDT Height 157.5 cm (5' 2 ) 06/02/2018 1:18 PM CDT Body Mass Index 35.63 06/02/2018 1:18 PM CDT documented in this encounter Patient Instructions * Patient Instructions* Catarina Huerta MD - 06/02/2018 1:15 PM CDT Return 6 months- Suggest Dr. Singleton or Dr. Walker. documented in this encounter Progress Notes * Catarina Huerta MD - 06/02/2018 12:00 AM CDT Date: 06/02/2018 INDIA CLEANING MD [address] [place], [place] [id number] Patient Name: EVAN HODGSON Date of : 1940 Date of Visit: 06/02/[address] Cleaning: Evan Hodgson returned in Cardiology follow-up today. She is a 78-year-old woman with paroxysmalatrial fibrillation, being managed with sotalol and warfarin. She is not as symptomatic when she has episodes as she once was. She is sure she had one around [place]. She did not note that she was in AFib until I told her today. In general, her heart has not been a problem for her. She has been under a great deal of stress with illness of family members and following a fall, in which she suffered a compression fracture back over [place]. With her usual activities, however, she denies chest pain or shortness of breath. She has had no orthopnea or PND. She rarely has palpitations. PAST MEDICAL HISTORY: Continues to be notable for hypothyroidism (on replacement), status post previous FUNK of the thyroid, hypertension, dyslipidemia, degenerative joint disease, depression, and essential tremor. MEDICATIONS: 1. Fosamax 70 mg weekly. 2. Xanax 0.25 mg as needed. 3. Amlodipine 5 mg daily. 4. Atorvastatin 40 mg daily. 5. Calcium plus D. 6. Cymbalta 30 mg daily. 7. Hydrochlorothiazide 25 mg daily. 8. Levothyroxine 25 mcg daily. 9. Losartan 100 mg daily. 10. Metformin 1000 mg daily. 11. Multivitamin. 12. Betapace 80 b.i.d. 13. Warfarin. PHYSICAL EXAMINATION: GENERAL: She is very tearful. GENERAL: Weight is 194 pounds, which is down 9 pounds. Heart rate is 110 and regular. Blood pressure 138/90. SKIN: Without rash or lesion. HEENT: Unremarkable. NECK: Supple. LUNGS: Clear. CARDIAC: No jugular venous distention. The PMI is not displaced. S1 and S2 are normal. There is no S3. ABDOMEN: Without organomegaly, mass, or tenderness. EXTREMITIES: She has no edema. DIAGNOSTIC IMPRESSIONS: 1. Paroxysmal atrial fibrillation. Generally, she is symptomatically controlled on the current doseof sotalol. We will continue to watch. 2. Hypertension. Blood pressure control has been good. She is very upset today because of a varietyof family stressors, so we will not make any changes at this time. I will plan to see her back in follow-up in 6 months. Thank you for letting me participate in her care. Respectfully, ELECTRONICALLY SIGNED - 06/02/2018 04:11 PM Catarina Huerta M.D., F.A.C.C. sample worker MERCEDEZ/jair cc: INDIA CLEANING MD / / documented in this encounter Plan of Treatment Not on file documented as of this encounter Visit Diagnoses Diagnosis Persistent atrial fibrillation (HCC)- Primary Atrial fibrillation Essential hypertension Unspecified essential hypertension Hyperlipidemia, unspecified hyperlipidemia type documented in this encounter Discontinued Medications Medication Sig Discontinue Reason Start Date End Da te lovastatin (MEVACOR) 10 mg tablet TAKE ONE TABLET BY MOUTH ONCE DAILY AT BEDTIME Other 10/08/2017 06/02/2018 fenofibrate nanocrystallized (TRICOR) 145 mg tablet daily. Therapy completed 06/02/2018 linaclotide (LINZESS) 72 mcg capsule 72 mcg. Therapy completed 06/02/2018 nystatin-triamcinolone creamIndications:cutaneous candidiasis Therapy completed 11/10/2017 06/02/2018 omeprazole (PriLOSEC) 20 mg capsule daily. Take 3 times a week Therapy completed 06/02/2018 documented as of this encounter Historical Medications * This list may reflect changes made after this encounter. levothyroxine (SYNTHROID) 50 mcg tablet Take 25 mcg by mouth 2 (two) times a day 1 03/24/2018 10/29/2020 atorvastatin (LIPITOR) 40 mg tablet Take 40 mg by mouth daily 1 03/11/2018 12/27/2018 added in this encounter Care Teams Paint Roller Winder Relationship Specialty Start Date End Date India Cleaning Jr., MD [address] [place] [address] PCP - General 07/03/16 07/15/20 documented as of this encounter
--- OUTSIDE RECORDS SUMMARY | 2024-03-13 01:17 | XMS_ITS | Encounter Summary ---
Author Organization [facility] Address [address] [place] [address] Phone Care Team Providers Care Third Rigger Name Role Phone Hermila Calhoun MD, Wilber Martinez Primary Care Provider Encounter Details Date Type Department Care Team (Latest Contact Info) Description 03/24/2019 Orders Only [facility] Scanning, Provider Social History Tobacco Use Types Packs/Day Years Used Date Smoking Tobacco: Never Smokeless Tobacco: Never Comments Unknown Sex and Gender Information Value Date Recorded Sex Assigned at Not on file 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 Gender Identity Not on file Sexual Orientation Not on file documented as of this encounter Plan of Treatment Not on file documented as of this encounter Procedures Procedure Name Priority Date/Time Associated Diagnosis Comments SCAN - LABS 03/24/2019 documented in this encounter Results * SCAN - LABS (03/24/2019) us Provider Scanning Final Result documented in this encounter Visit Diagnoses Not on filedocumented in this encounter Care Teams Third Rigger Relationship Specialty Start Date End Date Wilber Cleaning Jr., MD [address] [place] [address] PCP - General 07/03/16 07/15/20 documented as of this encounter
--- OUTSIDE RECORDS SUMMARY | 2024-03-13 01:17 | XMS_ITS | Encounter Summary ---
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 Rate/Duration: -- / -- Timestamps Action Dose Route Other Information 05/25/19 010 Given 12.5 mg oral Performed by: Mary Lamar RN metoprolol (LOPRESSOR) tablet 12.5 mg [[id number]] Ordering Provider: Ryann Ribeiro MD Status: Completed (Past End Date/Time) Ordered On: 05/25/19 0326 Starts/Ends: 05/25/19 0400 - 05/25/19 0335 Dose (Remaining/Total): 12.5 mg (0/1) Route: oral Frequency: Once Rate/Duration: -- / -- Timestamps Action Dose Route Other Information 05/25/19 0335 Given 12.5 mg oral Performed by: Mary Lamar RN Lactated Ringer's (LR) bolus 1,000 mL [[id number]] Ordering Provider: Kaveh Charles MD Status: Completed (Past End Date/Time) Ordered On: 05/25/19 1015 Starts/Ends: 05/25/19 1100 - 05/25/19 1119 Dose (Remaining/Total): 1,000 mL (0/1) Route: intravenous Frequency: Once Rate/Duration: -- / -- Timestamps Action Dose / Rate / Duration Route Other Information 05/25/19 111 New Bag -- intravenous Performed by: Jina Villalobos CRNA ceFAZolin (ANCEF) 2,000 mg/20 mL in sterile water (premix) 2,000 mg [[id number]] Ordering Provider: Kaveh Charles MD Status: Completed [...] in sodium chloride 0.9% (premix) 1,500 mg [[id number]] Ordering Provider: Kaveh Charles MD Status: Completed [...] Moreno RN ketorolac (TORADOL) injection 15 mg [[id number]] Ordering Provider: Kaveh Charles MD Status: Completed (Past End Date/Time) Ordered On: 05/25/19 102 Starts/Ends: 05/25/19 1100 - 05/25/19 1340 Dose (Remaining/Total): 15 mg (0/1) Route: intravenous Frequency: Once Rate/Duration: -- / -- Admin Instructions: INTRA-OP Give at time of skin closure Timestamps Action Dose Route Other Information 05/25/19 1340 Given 15 mg intravenous Performed by: Jina Villalobos CRNA EPINEPHrine 0.15 mg in bacteriostatic 0.9% sodium chloride 30 mL solution [[id number]] Ordering Provider: Kaveh Charles MD Status: Completed [...] femur sodium chloride 0.9% flush 0.5-20 mL [[id number]] Ordering Provider: Kaveh Charles MD Status: Verified Ordered On: 05/25/19 172 Start: 05/25/19 2200 Dose (Remaining/Total): 0.5-20 mL (--/--) Route: intra-catheter Frequency: Every 8 hours scheduled Rate/Duration: -- / -- Admin Instructions: Flush volume based on line type and size. Timestamps Action Dose Route Other Information 05/27/19 0529 Given 10 mL intra-catheter Performed by: Denisa Galdamez RN sodium chloride 0.9% flush 0.5-20 mL [[id number]] Ordering Provider: Kaveh Charles MD Status: Verified Ordered On: 05/25/191722 Start: 05/25/191722 Dose (Remaining/Total): 0.5-20 mL (--/--) Route: intra-catheter Frequency: As needed Rate/Duration: -- / -- Admin Instructions: Flush volume based on line type and size. Flush before and after each use. (No admins recorded for this medication) Lactated Ringer's (LR) bolus 1,000 mL [[id number]] Ordering Provider: Kaveh Charles MD Status: Completed (Past End Date/Time) Ordered On: 05/25/191417 Starts/Ends: 05/25/191499 - 05/25/19 1500 Dose (Remaining/Total): 1,000 mL (0/1) Route: intravenous Frequency: Once Rate/Duration: 1,000 mL/hr / 1 Hours (No admins recorded for this medication) ondansetron ODT (ZOFRAN-ODT) disintegrating tablet 4 mg [[id number]] Ordering Provider: Kaveh Charles MD Status: Verified Ordered On: 05/25/191722 Start: 05/25/191722 Dose (Remaining/Total): 4 mg (--/--) Route: oral Frequency: Every 6 hours PRN Rate/Duration: -- / -- (No admins recorded for this medication) ondansetron (ZOFRAN) injection 4 mg [[id number]] Ordering Provider: Kaveh Charles MD Status: Verified Ordered On: 05/25/191722 Start: 05/25/191722 Dose (Remaining/Total): 4 mg (--/--) Route: intravenous Frequency: Every 6 hours PRN Rate/Duration: -- / 2 Minutes (No admins recorded for this medication) senna-docusate (PERICOLACE) 8.6-50 mg per tablet 2 tablet [[id number]] Ordering Provider: Kaveh Charles MD Status: Dispensed Ordered On: 05/25/191722 Start: 05/25/192099 Dose (Remaining/Total): 2 tablet (--/--) Route: oral Frequency: 2 times daily Rate/Duration: -- / -- Admin Instructions: Hold for diarrhea. Timestamps Action Dose Route Other Information 05/27/19812 Given 2 tablet oral Performed by: Kendy Nicole RN polyethylene glycol (MIRALAX) packet 17 g [[id number]] Ordering Provider: Kaveh Charles MD Status: Verified Ordered On: 05/25/191722 Start: 05/25/191722 Dose (Remaining/Total): 17 g (--/--) Route: oral Frequency: Daily PRN Rate/Duration: -- / -- (No admins recorded for this medication) famotidine (PEPCID) tablet 20 mg [[id number]] Ordering Provider: Kaveh Charles MD Status: Dispensed Ordered On: 05/25/191722 Start: 05/25/192099 Dose (Remaining/Total): 20 mg (--/--) Route: oral Frequency: 2 times daily Rate/Duration: -- / -- Timestamps Action Dose Route Other Information 05/27/19812 Given 20 mg oral Performed by: Kendy Nicole RN camphor-menthoL (SARNA) 0.5-0.5 % lotion [[id number]] Ordering Provider: Kaveh Charles MD Status: Dispensed Ordered On: 05/25/191722 Start: 05/25/191722 Dose (Remaining/Total): -- (--/--) Route: topical Frequency: Every 2 hours PRN Rate/Duration: -- / -- Question Answer Comment Apply to affected area:: other surgical wound site (No admins recorded for this medication) warfarin (COUMADIN) tablet 2 mg [[id number]] Ordering Provider: Kaveh Charles MD Status: Dispensed [...] mL in sterile water (premix) 2,000 mg [[id number]] Ordering Provider: Kaveh Charles MD Status: Completed [...] in sodium chloride 0.9% (premix) 1,500 mg [[id number]] Ordering Provider: Kaveh Charles MD Status: Completed (Past End Date/Time) Ordered On: 05/25/191722 Starts/Ends: 05/25/192229 - 05/26/19 0032 Dose (Remaining/Total): 1,500 mg (0/1) Route: intravenous Frequency: Once Rate/Duration: -- / 90 Minutes Admin Instructions: Administer 12 hours after pre-procedure dose. Timestamps Action Dose / Duration Route Other Information 05/25/19 2302 New Bag 1,500 mg 90 Minutes intravenous Performed by: Moriah Hall RN ketorolac (TORADOL) injection 15 mg [[id number]] Ordering Provider: Kaveh Charles MD Status: Dispensed [...] Hall RN HYDROmorphone (DILAUDID) injection 0.2 mg [[id number]] Ordering Provider: Kaveh Charles MD Status: Dispensed [...] RN insulin lispro (HumaLOG) injection 1-3 Units [[id number]] Ordering Provider: Yoly Medellin MD Status: Completed [...] Negron RN oxyCODONE (ROXICODONE) tablet 5 mg [[id number]] Ordering Provider: Suzie Wu MD Status: Dispensed Ordered On: 05/26/19 0530 Start: 05/26/19 0545 Dose (Remaining/Total): 5 mg (--/--) Route: oral Frequency: Every 4 hours Rate/Duration: -- / -- Timestamps Action Dose Route Other Information 05/27/19 0618 Given 5 mg oral Performed by: Denisa Galdamez RN metoprolol (LOPRESSOR) injection 5 mg [[id number]] Ordering Provider: Ryann Ribeiro MD Status: Completed [...] Problem: Open fracture of left distal femur ([facility]) [S72.402B] More... Elopement Risk Date/Time Elopement Risk User 05/22/19 0651 No risk JLH 05/22/19 0500 No risk MC Intake/Output 05/24/19 0700 - 05/25/19 0659 05/25/19 0700 - 05/26/19 0659 05/26/19 07 - 05/27/19 0659 Total Total 5684-6861 6319-3532 6101-3246 Total Intake (ml) 20 3050 -- 500 -- 500 Output (ml) 700 930 400 268 962 5777 Net (ml) -680 2120 -400 175 -475 [...] Mobility Activity 05/27 819 Resting in bed 05/27 619 Resting in bed 05/26 0529 Sleeping 05/25 [...] to bed x2 assist. Good UOP Gen Oleary RN Problem: Health Behavior: [...] record. Thank you, Mary Umana RN, MSN, CCDS [phone] * Plan of Care - Moriah Hall [...] was found to be excellent. Leg length mu-ism was confirmed. The rotation was marked. The [...] available during skin closure. Kaveh Charles M.D. Mold Making Supervisor, Orthopaedic Surgery * Plan of Care - [...] to follow for needs A Roberto RM [phone] For evening case management needs please contact the manager agency at [phone]. For weekend and holiday needs please call [phone]. * Plan of Care - Holly Leonard [...] will decrease Outcome: Progressing * Kory of Holly Calderon RN - 05/24/2019 10:53 AM CDT Problem: [...] AM CDT No yumiko hugger used. Warm [place] was used * Op Note - Cuba Castro MD - 05/22/2019 8:13 AM CDT Date of Surgery: .05/22/19 Pre-operative Diagnosis: 1. Comminuted open left distal femur fracture, type 1 Post-operative diagnosis: 1. Same as above Operative Procedure: 1. Irrigation and excisional debridement of nonviable subcutaneous tissue and bone from left distal femur fracture Attending Surgeon: Cuba Castro MD, M.Sc. Supervisor Brake Repair: 1. 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 This was [...] interrupted 2 0 Monocryl suture followed by theodore. A sterile dressing consisting of Xeroform, 4x4s, ABD [...] Resident - Assisting Anesthesiologist: Daryn Jaramillo MD SPRING CLIPPER: Mehul Dias CRNA Student Nurse Sand System Operator: Daya Baldwin RN Paint Grinder Stone Mill: Aurelia Pederson RN Scrub: ST Jeromy DATE OF SURGERY : 05/22/2019 Preoperative Diagnosis: Pre-op Diagnosis * Other type I or II open fracture of distal end of left femur, initial encounter ([facility]) [S72.954B] Postoperative Diagnosis: Post-op Diagnosis * Other type I or II open fracture of distal end of left femur, initial encounter ([facility]) [S72.902B] Procedure(s): Procedure(s) (LRB): INCISION AND DRAINAGE - [...] Berny Carrera MD - 05/21/2019 7:40 PM PRACTICE SPECIALIST Associated Order(s): ECG 12 lead Procedure [...] in the ED Berny Carrera MD 05/21/191939 TICE SPECIALIST * ED Pre-Arrival Note - Lina Wyatt RN - 05/21/2019 4:17 PM PRACTICE SPECIALIST Pre-Arrival Note Pt accepted as Level [address] Elena, report called by RACHID Flores. Pt had a ground level fall today. - LOC. Head CT negative. Pt has a comminuted L femur fracture into the knee joint with dislocationof the knee. PMS intact. VSS at time of report. Lina Wyatt, RN TICE SPECIALIST documented in this encounter Plan of [...] DEVICE Routine 05/25/2019 1 :00 PM CDT POCT GLUCOSE DEVICE Routine 05/25/2019 1 0:41 [...] distal end of left femur, initial encounter ([facility]) POCT GLUCOSE DEVICE Routine 05/22/2019 6 :39 AM CDT POCT GLUCOSE DEVICE Routine 05/22/2019 4 :59 AM CDT PROTIME-INR STAT 05/22/2019 4:57 AM CDT POCT GLUCOSE DEVICE Routine 05/22/2019 1 2:39 AM PRACTICE SPECIALIST B CHECK SAMPLE STAT 05/21/2019 11:48 PM PRACTICE SPECIALIST POCT GLUCOSE DEVICE Routine 05/21/2019 1 1:[address] KNEE LEFT WO CONTRAST ED 05/21/2019 10:21 PM PRACTICE SPECIALIST NEURO CT MR OUTSIDE CONSULT ED 05/21/2019 8:[address] CERVICAL SPINE WO CONTRAST ED 05/21/2019 8:29 PM PRACTICE SPECIALIST XR KNEE LEFT 1 OR 2 VIEWS ED 05/21/2019 8:26 PM PRACTICE SPECIALIST XR PELVIS 1 OR 2 VIEWS ED 0 8:26 PM PRACTICE SPECIALIST XR FEMUR LEFT 2 OR MORE VIEWS ED 05/21/2019 8:25 PM PRACTICE SPECIALIST XR CHEST 1 VIEW ED 05/21/2019 8:24 PM PRACTICE SPECIALIST DIFFERENTIAL AUTO STAT 05/21/2019 7:4 3 PM PRACTICE SPECIALIST CBC WITH AUTO DIFFERENTIAL STAT 05/21/2019 7:43 PM PRACTICE SPECIALIST APTT STAT 05/21/2019 7:43 PM PRACTICE SPECIALIST PROTIME-INR STAT 05/21/2019 7:43 PM PRACTICE SPECIALIST TYPE AND SCREEN STAT 05/21/2019 7:43 PM PRACTICE SPECIALIST COMPREHENSIVE METABOLIC PANEL STAT 05/21/2019 7:43 PM PRACTICE SPECIALIST ECG 12-LEAD STAT 05/21/2019 7:40 PM PRACTICE SPECIALIST XR TRANSFER OF OUTSIDE FILMS ED 05/21/2019 7:33 PM PRACTICE SPECIALIST POCT GLUCOSE DEVICE Routine 05/21/2019 7 :27 PM PRACTICE SPECIALIST documented in this encounter Results * (ABNORMAL) POCT glucose (05/27/2019 11:49 AM CDT) Glucose, POC 213(H) 70 - 199 mg/dL [facility] Blood specimen (specimen) 05/27/2019 11:49 AM CDT 05/27/2019 11:49 AM CDT Kaveh Charles MD LAB POCT ORDERABLES - [place] CE Final Result Performing Organization Address [facility] Co de Phone Number [facility] Department [place] [employer] [place] [address] * POCT glucose (05/27/2019 7:30 AM CDT) Glucose, POC 176 70 - 199 mg/dL [facility] Blood specimen (specimen) 05/27/2019 7:30 AM CDT 05/27/2019 7:30 AM CDT Kaveh Charles MD LAB POCT ORDERABLES - [place] CE Final Result Performing Organization Address City/[facility]/ZIP Co de Phone Number [facility] [place] [place] [address] * POCT glucose (05/27/2019 4:35 AM CDT) Glucose, POC 174 70 - 199 mg/dL [facility] Blood specimen (specimen) 05/27/2019 4:35 AM CDT 05/27/2019 4:35 AM CDT Kaveh Charles MD LAB POCT ORDERABLES - [place] CE Final Result Performing Organization Address [facility] Co de Phone Number [facility] [place] [address] * POCT glucose (05/27/2019 1:07 AM CDT) [facility] Glucose, POC 170 70 - 199 mg/dL [facility] Blood specimen (specimen) 05/27/2019 1:07 AM CDT 05/27/2019 1:07 AM CDT Steve Garcia MD LAB POCT ORDERABLES - DEV ICE Final Result Performing Organization Address [facility] de Phone Number [facility] [place] [place] [address] * (ABNORMAL) POCT glucose (05/26/2019 9:55 PM CDT) [facility] Glucose, POC 235(H) 70 - 199 mg/dL [facility] Blood specimen (specimen) 05/26/2019 9:55 PM CDT 05/26/2019 9:55 PM CDT Steve Garcia MD LAB POCT ORDERABLES - DEV ICE Final Result Performing Organization Address [facility] Co de Phone Number [facility] [place] [address] * Differential, auto (05/26/2019 9:52 PM CDT) [facility] Signature Neutrophil abs 5.2 1.7 - 6.5 K/cumm [facility] Imm gran abs 0.0 0.0 - 0.1 K/cumm [facility] Lymphocyte abs 1.2 0.8 - 3.3 K/cumm [facility] Monocyte abs 0.6 0.2 - 0.8 K/cumm [facility] Eosinophil abs 0.1 0.0 - 0.5 K/cumm [facility] Basophil abs 0.0 0.0 - 0.1 K/cumm [facility] Neutrophil pct 72.9 % [facility] Comment: Interpretive Data Percent cell count reference ranges are not reported, since discordance with absolute values may lead to misinterpretation of CBC data. Current Interpretive Data was last revised on 2017. Imm gran pct 0.7 % [facility] Comment: Interpretive Data Percent cell count reference ranges are not reported, since discordance with absolute values may lead to misinterpretation of CBC data. Current Interpretive Data was last revised on 2017. Lymphocyte pct 17.4 % [facility] Comment: Interpretive Data Percent cell count reference ranges are not reported, since discordance with absolute values may lead to misinterpretation of CBC data. Current Interpretive Data was last revised on 2017. Monocyte pct 7.9 % [facility] Comment: Interpretive Data Percent cell count reference ranges are not reported, since discordance with absolute values may lead to misinterpretation of CBC data. Current Interpretive Data was last revised on 2017. Eosinophil pct 1.0 % [facility] Comment: Interpretive Data Percent cell count reference ranges are not reported, since discordance with absolute values may lead to misinterpretation of CBC data. Current Interpretive Data was last revised on 2017. Basophil pct 0.1 % [facility] Comment: Interpretive Data Percent cell count reference ranges are not reported, since discordance with absolute values may lead to misinterpretation of CBC data. Current Interpretive Data was last revised on 2017. Blood specimen (specimen) 05/26/2019 9:52 PM CDT 05/26/2019 10:09 PM CDT us Kaveh Charles MD LAB BLOOD ORDERABLES Final Result [facility] Department [place] [address] * (ABNORMAL) Basic metabolic panel (05/26/2019 9:52 PM CDT) Sodium 134(L) 135 - 145 mmol/L [facility] Potassium, pl 4.2 3.3 - 4.9 mmol/L [facility] Chloride 104 97 - 110 mmol/L [facility] CO2 25 22 - 32 mmol/L [facility] Anion gap 5 2 - 15 mmol/L [facility] BUN 17 8 - 25 mg/dL [facility] Creatinine 0.45(L) 0.60 - 1.10 mg/dL [facility] Glucose 222(H) 70 - 199 mg/dL [facility] Comment: Interpretive Data Fasting glucose >/= 126 [...] 2017. Calcium 8.3(L) 8.5 - 10.3 mg/dL [facility] Blood specimen (specimen) 05/26/2019 9:52 PM CDT 05/26/2019 10:09 PM CDT Kaveh Charles MD LAB BLOOD ORDERABLES Final Result [facility] Department [place] [address] * (ABNORMAL) CBC with auto differential (05/26/2019 9:52 PM CDT) [facility] WBC 7.1 3.8 - 9.9 K/cumm [facility] Hgb 8.9(L) 11.9 - 15.5 g/dL [facility] Hct 27.5(L) 35.6 - 45.5 % [facility] Plt 210 150 - 400 K/cumm [facility] MPV 10.0 9.1 - 12.3 fL [facility] RBC 2.80(L) 3.90 - 5.20 M/cumm [facility] MCV 98.2(H) 81.3 - 96.4 fL [facility] MCH 31.8 27.1 - 33.3 pg [facility] MCHC 32.4 32.3 - 35.7 g/dL [facility] RDW CV 15.2(H) 11.1 - 14.9 % [facility] RDW SD 54.1(H) 35.7 - 48.1 fL [facility] NRBC abs 0.00 0.00 - 0.01 K/cumm [facility] Blood specimen (specimen) 05/26/2019 9:52 PM CDT 05/26/2019 10:09 PM CDT Kaveh Charles MD LAB BLOOD ORDERABLES Final Result Performing Organization Address [facility] de Phone Number [facility] [place] [place] [address] * (ABNORMAL) Protime-INR (05/26/2019 9:52 PM CDT) [facility] PT 13.7(H) 8.6 - 13.0 sec [facility] INR 1.3(H) 0.8 - 1.2 [facility] Comment: Interpretive data Oral anticoagulant therapeutic ranges: Venous thromboembolism prophylaxis or treatment: 2.0-3.0 CARDIOLOGY Standard range: 2.0-3.0 High-intensity range: 2.5-3.5 Refer to indication-specific guidelines for appropriate target ranges for prosthetic heart valve replacement. Current interpretive data was last revised on 2019. Blood specimen (specimen) 05/26/2019 9:52 PM CDT 05/26/2019 10:06 PM CDT Kaveh Charles MD LAB BLOOD ORDERABLES Final Result Performing Organization Address [facility] de Phone Number [facility] [place] [place] [address] * POCT glucose (05/26/2019 3:46 PM CDT) Glucose, POC 188 70 - 199 mg/dL [facility] Blood specimen (specimen) 05/26/2019 3:46 PM CDT 05/26/2019 3:46 PM CDT Kaveh Charles MD LAB POCT ORDERABLES - [place] CE Final Result Performing Organization Address [facility] Co de Phone Number [facility] [place] [place] [address] * (ABNORMAL) POCT glucose (05/26/2019 11:47 AM CDT) Glucose, POC 202(H) 70 - 199 mg/dL [facility] Blood specimen (specimen) 05/26/2019 11:47 AM CDT 05/26/2019 11:47 AM CDT Kaveh Charles MD LAB POCT ORDERABLES - [place] CE Final Result Performing Organization Address [facility] Co de Phone Number [facility] [place] [place] [address] * (ABNORMAL) POCT glucose (05/26/2019 9:25 AM CDT) Glucose, POC 216(H) 70 - 199 mg/dL [facility] Blood specimen (specimen) 05/26/2019 9:25 AM CDT 05/26/2019 9:25 AM CDT Kaveh Charles MD LAB POCT ORDERABLES - [place] CE Final Result Performing Organization Address City/[facility] Co de Phone Number [facility] [place] [place] [address] * POCT glucose (05/26/2019 6:08 AM CDT) Glucose, POC 160 70 - 199 mg/dL [facility] Blood specimen (specimen) 05/26/2019 6:08 AM CDT 05/26/2019 6:08 AM CDT Kaveh Charles MD LAB POCT ORDERABLES - [place] CE Final Result Performing Organization Address City/[facility]/ZIP Co de Phone Number [facility] Department [place] [address] * POCT glucose (05/25/2019 11:04 PM CDT) Pathologist [facility] Glucose, POC 174 70 - 199 mg/dL [facility] Blood specimen (specimen) 05/25/2019 11:04 PM CDT 05/25/2019 11:04 PM CDT Kaveh Charles MD LAB POCT ORDERABLES - [place] CE Final Result Performing Organization Address City/[facility] Co de Phone Number [facility] [place] [address] * Differential, auto (05/25/2019 10:42 PM CDT) [facility] Neutrophil abs 5.4 1.7 - 6.5 K/cumm [facility] Imm gran abs 0.0 0.0 - 0.1 K/cumm [facility] Lymphocyte abs 1.2 0.8 - 3.3 K/cumm [facility] Monocyte abs 0.7 0.2 - 0.8 K/cumm [facility] Eosinophil abs 0.0 0.0 - 0.5 K/cumm [facility] Basophil abs 0.0 0.0 - 0.1 K/cumm [facility] Neutrophil pct 73.2 % [facility] Comment: Interpretive Data Percent cell count reference ranges are not reported, since discordance with absolute values may lead to misinterpretation of CBC data. Current Interpretive Data was last revised on 2017. Imm gran pct 0.4 % [facility] Comment: Interpretive Data Percent cell count reference ranges are not reported, since discordance with absolute values may lead to misinterpretation of CBC data. Current Interpretive Data was last revised on 2017. Lymphocyte pct 15.8 % [facility] Comment: Interpretive Data Percent cell count reference ranges are not reported, since discordance with absolute values may lead to misinterpretation of CBC data. Current Interpretive Data was last revised on 2017. Monocyte pct 9.8 % [facility] Comment: Interpretive Data Percent cell count reference ranges are not reported, since discordance with absolute values may lead to misinterpretation of CBC data. Current Interpretive Data was last revised on 2017. Eosinophil pct 0.4 % [facility] Comment: Interpretive Data Percent cell count reference ranges are not reported, since discordance with absolute values may lead to misinterpretation of CBC data. Current Interpretive Data was last revised on 2017. Basophil pct 0.4 % [facility] Comment: Interpretive Data Percent cell count reference ranges are not reported, since discordance with absolute values may lead to misinterpretation of CBC data. Current Interpretive Data was last revised on 2017. Blood specimen (specimen) 05/25/2019 10:42 PM CDT 05/25/2019 11:36 PM CDT Berny Carrera MD LAB BLOOD ORDERABLES Sri davalos Result [facility] Department [place] [address] * (ABNORMAL) Protime-INR (05/25/2019 10:42 PM CDT) PT 13.3(H) 8.6 - 13.0 sec [facility] INR 1.2 0.8 - 1.2 [facility] Comment: Interpretive data Oral anticoagulant therapeutic ranges: Venous thromboembolism prophylaxis or treatment: 2.0-3.0 CARDIOLOGY Standard range: 2.0-3.0 High-intensity range: 2.5-3.5 Refer to indication-specific guidelines for appropriate target ranges for prosthetic heart valve replacement. Current interpretive data was last revised on 2019. Blood specimen (specimen) 05/25/2019 10:42 PM CDT 05/25/2019 11:27 PM CDT Kaveh Charles MD LAB BLOOD ORDERABLES Final Result Performing Organization Address [facility]/State/ZIP Co de Phone Number [facility] Department [place] [address] * (ABNORMAL) CBC with auto differential (05/25/2019 10:42 PM CDT) [facility] WBC 7.4 3.8 - 9.9 K/cumm [facility] Hgb 9.2(L) 11.9 - 15.5 g/dL [facility] Hct 28.7(L) 35.6 - 45.5 % [facility] Plt 232 150 - 400 K/cumm [facility] MPV 10.4 9.1 - 12.3 fL [facility] RBC 2.95(L) 3.90 - 5.20 M/cumm [facility] MCV 97.3(H) 81.3 - 96.4 fL [facility] MCH 31.2 27.1 - 33.3 pg [facility] MCHC 32.1(L) 32.3 - 35.7 g/dL [facility] RDW CV 15.0(H) 11.1 - 14.9 % [facility] RDW SD 52.3(H) 35.7 - 48.1 fL [facility] NRBC abs 0.00 0.00 - 0.01 K/cumm [facility] Blood specimen (specimen) 05/25/2019 10:42 PM CDT 05/25/2019 11:36 PM CDT us Kaveh Charles MD LAB BLOOD ORDERABLES Final Result [facility] [place] [address] * POCT glucose (05/25/2019 9:08 PM CDT) [facility] Glucose, POC 167 70 - 199 mg/dL [facility] Blood specimen (specimen) 05/25/2019 9:08 PM CDT 05/25/2019 9:08 PM CDT Kaveh Charles MD LAB POCT ORDERABLES - [place] CE Final Result Performing Organization Address City/[facility]/ZIP Co de Phone Number [facility] Department [place] [address] * (ABNORMAL) Basic metabolic panel (05/25/2019 8:30 PM CDT) [facility] Sodium 137 135 - 145 mmol/L [facility] Potassium, pl 4.1 3.3 - 4.9 mmol/L [facility] Chloride 104 97 - 110 mmol/L [facility] CO2 29 22 - 32 mmol/L [facility] Anion gap 4 2 - 15 mmol/L [facility] BUN 18 8 - 25 mg/dL [facility] Creatinine 0.62 0.60 - 1.10 mg/dL [facility] Glucose 171 70 - 199 mg/dL [facility] Comment: Interpretive Data Fasting glucose >/= 126 [...] 2017. Calcium 8.1(L) 8.5 - 10.3 mg/dL [facility] Blood specimen (specimen) 05/25/2019 8:30 PM CDT 05/25/2019 11:36 PM CDT Kaveh Charles MD LAB BLOOD ORDERABLES Final Result Performing Organization Address [facility]/State/ZIP Co de Phone Number [facility] Department [place] [address] * POCT glucose (05/25/2019 4:57 PM CDT) Glucose, POC 175 70 - 199 mg/dL [facility] Blood specimen (specimen) 05/25/2019 4:57 PM CDT 05/25/2019 4:57 PM CDT Kaveh Charles MD LAB POCT ORDERABLES - [place] CE Final Result Performing Organization Address [facility] Co de Phone Number [facility] [place] [address] * (ABNORMAL) POCT glucose (05/25/2019 3:05 PM CDT) Glucose, POC 209(H) 70 - 199 mg/dL [facility] Blood specimen (specimen) 05/25/2019 3:05 PM CDT 05/25/2019 3:05 PM CDT Kaveh Charles MD LAB POCT ORDERABLES - [place] CE Final Result Performing Organization Address [facility] Co de Phone Number [facility] Department [place] [address] * XR Knee Left 1 or 2 [...] BJ CO2 27 22 - 32 mmol/L [facility] Anion gap 5 2 - 15 mmol/L [facility] BUN 14 8 - 25 mg/dL [facility] Creatinine 0.50(L) 0.60 - 1.10 mg/dL [facility] Glucose 204(H) 70 - 199 mg/dL [facility] Comment: Interpretive Data Fasting glucose >/= 126 [...] 2017. Calcium 8.3(L) 8.5 - 10.3 mg/dL [facility] Blood specimen (specimen) 05/25/2019 2:19 PM CDT 05/25/2019 2:44 PM CDT Kaveh Charles MD LAB BLOOD ORDERABLES Final Result [facility] Department [place] [address] * (ABNORMAL) CBC without differential (05/25/2019 2:19 PM CDT) WBC 6.7 3.8 - 9.9 K/cumm [facility] Hgb 9.9(L) 11.9 - 15.5 g/dL [facility] Hct 30.5(L) 35.6 - 45.5 % [facility] Plt 212 150 - 400 K/cumm [facility] MPV 10.4 9.1 - 12.3 fL [facility] RBC 3.09(L) 3.90 - 5.20 M/cumm [facility] MCV 98.7(H) 81.3 - 96.4 fL [facility] MCH 32.0 27.1 - 33.3 pg [facility] MCHC 32.5 32.3 - 35.7 g/dL [facility] RDW CV 14.6 11.1 - 14.9 % [facility] RDW SD 51.8(H) 35.7 - 48.1 fL [facility] NRBC abs 0.00 0.00 - 0.01 K/cumm [facility] Blood specimen (specimen) 05/25/2019 2:19 PM CDT 05/25/2019 2:44 PM CDT Kaveh Charles MD LAB BLOOD ORDERABLES Final Result Performing Organization Address [facility] de Phone Number [facility] Department [place] [address] * (ABNORMAL) Protime-INR (05/25/2019 2:19 PM CDT) Pathologist [facility] PT 13.3(H) 8.6 - 13.0 sec [facility] INR 1.2 0.8 - 1.2 [facility] Comment: Interpretive data Oral anticoagulant therapeutic ranges: Venous thromboembolism prophylaxis or treatment: 2.0-3.0 CARDIOLOGY Standard range: 2.0-3.0 High-intensity range: 2.5-3.5 Refer to indication-specific guidelines for appropriate target ranges for prosthetic heart valve replacement. Current interpretive data was last revised on 2019. Blood specimen (specimen) 05/25/2019 2:19 PM CDT 05/25/2019 2:44 PM CDT Kaveh Charles MD LAB BLOOD ORDERABLES Final Result Performing Organization Address [facility] de Phone Number [facility] Department [place] [address] * (ABNORMAL) POC Blood Gas and Chemistries, Arterial - (05/25/2019 1:51 PM CDT) pH, Art 7.37 7.35 - 7.45 [facility] pCO2, Art POC 43 35 - 45 mmHg [facility] pO2, Art POC 252(H) 83 - 108 mmHg [facility] Na, POC 138 135 - 145 mmol/L [facility] K POC 3.8 3.3 - 4.9 mmol/L [facility] Cl, POC 105 97 - 110 mmol/L [facility] Ionized Ca, POC 4.92 4.50 - 5.10 mg/dL [facility] Glucose, POC 177 70 - 199 mg/dL [facility] Lactate, POC 1.3 0.7 - 2.2 mmol/L [facility] SO2 (tatiana) arterial 100(H) 90 - 95 % [facility] Base excess, POC -0.6 mmol/L [facility] HCO3, Art POC 25 20 - 30 mmol/L [facility] Hct, POC 26.0(L) 36.3 - 45.3 % [facility] O2 Sat, Art POC (Calc) 100 % [facility] Total Hb, POC 8.8(L) 11.9 - 15.5 g/dL [facility] Blood specimen (specimen) 05/25/2019 1:51 PM CDT 05/25/2019 1:51 PM CDT Kaveh Charles MD LAB POCT ORDERABLES - [place]IN[place] CE Final Result [facility] [place] [address] * Transfuse RBC (05/25/2019 1:36 PM CDT) Blood specimen (specimen) Paul Kelly MD BLOOD TRANSFUSION ORDERABLES Final Result Performing Organization Address City/[facility]/ZIP Co de Phone Number [facility] [place] [address] * (ABNORMAL) POC Blood Gas and Chemistries, Venous - (05/25/2019 1:29 PM CDT) pH, [place] POC 7.35 7.32 - 7.43 [facility] pCO2, alton POC 32(L) 40 - 50 mmHg [facility] pO2, alton POC 45 mmHg [facility] Na, POC 141 135 - 145 mmol/L [facility] K POC 2.6(L) 3.3 - 4.9 mmol/L [facility] Cl, POC 118(H) 97 - 110 mmol/L [facility] Ionized Ca, POC 3.44(L) 4.50 - 5.10 mg/dL [facility] Glucose, POC 116 70 - 199 mg/dL [facility] Lactate, POC 1.0 0.7 - 2.2 mmol/L [facility] O2 Sat, [place] POC (Tatiana) 81 % [facility] Base excess, POC -6.8 mmol/L [facility] HCO3, [place] POC 18(L) 20 - 30 mmol/L [facility] Hct, POC 19.0(L) 36.3 - 45.3 % [facility] Total Hb, POC 6.2(L) 11.9 - 15.5 g/dL [facility] O2 Sat, [place] POC (Calc) 78 % [facility] Blood specimen (specimen) 05/25/2019 1:29 PM CDT 05/25/2019 1:29 PM CDT Kaveh Charles MD LAB POCT ORDERABLES - [place]IN[place] CE Final Result [facility] [place] [address] * POCT glucose (05/25/2019 1:00 PM CDT) Glucose, POC 156 70 - 199 mg/dL [facility] Blood specimen (specimen) 05/25/2019 1:00 PM CDT 05/25/2019 1:00 PM CDT us Kaveh Charles MD LAB POCT ORDERABLES - [place]STIN[place] CE Final Result [facility] Department [place] [address] * POCT glucose (05/25/2019 10:41 AM CDT) Glucose, POC 170 70 - 199 mg/dL [facility] Blood specimen (specimen) 05/25/2019 10:41 AM CDT 05/25/2019 10:41 AM CDT us Kaveh Charles MD LAB POCT ORDERABLES - [place]ST[place] CE Final Result Performing Organization Address City/[facility]/ZIP Co de Phone Number [facility] [place] [address] * Type and screen (05/25/2019 10:01 AM CDT) Gian, indirect Negative [facility] ABO Rh O Positive [facility] Blood specimen (specimen) 05/25/2019 10:01 AM CDT 05/25/2019 10:15 AM CDT Narrative [facility] - 05/25/2019 11:03 AM CDT Has the patient had Daratumumab (Darzalex) in the past 6 months?->Unknown us Paulina France NP LAB BLOOD BANK TEST ORDERAB LES Final Result Performing Organization Address [facility]/ZIP Co de Phone Number [facility] Department [place] [address] * Prepare RBC: 2 Units (05/25/2019 9:59 AM CDT) Product code [id number] [facility] Unit Number [id number] [facility] Product Blood Type OPOS [facility] Dispense Status RETURNED [facility] Product code [id number] [facility] Unit Number [id number] [facility] Product Blood Type OPOS [facility] Dispense Status PRESUMED TRANSFUSED [facility] Blood specimen (specimen) 05/25/2019 9:59 AM CDT 05/25/2019 9:59 AM CDT Narrative [facility] - 05/26/2019 12:49 AM CDT Are special requirements needed? (all products are leukoreduced)->No Date required:-[id number] LRRBC # of [id number] Reasons:-Intra-op transfusion} us Paul Kelly MD BLOOD BANK PRODUCT ORDERABLES Final Result Performing Organization Address [facility] Co de Phone Number [facility] [place] [address] * POCT glucose (05/25/2019 7:54 AM CDT) Glucose, POC 155 70 - 199 mg/dL [facility] Blood specimen (specimen) 05/25/2019 7:54 AM CDT 05/25/2019 7:54 AM CDT Kaveh Charles MD LAB POCT ORDERABLES - [place]STIN[place] CE Final Result Performing Organization Address [facility] de Phone Number [facility] [place] [address] * (ABNORMAL) Urinalysis, microscopic only (05/25/2019 6:11 AM CDT) WBC, ur 0-5 0 - 5 /HPF [facility] RBC, ur 0-2 0 - 2 /HPF [facility] Epithelial cells, squamous, ur 1-5 0 - 5 /HPF [facility] Mucous, ur Present(A) [facility] Culture Reflex Comment Reflex conditions for urine culture (WBC >10) not met. [facility] Urine 05/25/2019 6:11 AM CDT 05/25/2019 6:27 AM CDT Berny Carrera MD LAB URINE ORDERABLES Sri l Result Performing Organization Address [facility] Co de Phone Number [facility] [place] [address] * (ABNORMAL) Urinalysis reflex to microscopic and culture Urine (05/25/2019 6:11 AM CDT) Color, ur Yellow Yellow [facility] Clarity, ur Clear Clear [facility] Specific gravity, ur 1.023 1.010 - 1.025 [facility] pH, urine 6 [facility] Protein, ur ql 1+(A) Negative [facility] Glucose, ur ql Negative Negative [facility] Ketones, ur Trace Negative [facility] Bilirubin, ur Negative Negative [facility] Blood, ur Negative Negative [facility] Urobilinogen, ur <2.0 <2.0 mg/dL [facility] Nitrite, ur Negative Negative [facility] Leukocyte esterase, ur Negative Negative [facility] UA reflex comment Reflex to microscopic UA will be performed. [facility] Urine 05/25/2019 6:11 AM CDT 05/25/2019 6:27 AM CDT Narrative [facility] - 05/25/2019 6:39 AM CDT ?? Urine pH is affected by diet, medications, systemic acid-base disturbances, and renal tubular function. ??pH may affect urinary stone formation. ??For example, urine pH below 6.0 may help reduce the tendency for calcium phosphate stones and pH greater than 6.0 may reduce the tendency for uric acid stone formation. Source: [facility]. Last revised 03-26-2017 Urine pH is affected by diet, medications, systemic acid-base disturbances, and renal tubular function. ??pH may affect urinary stone formation. ??For example, urine pH below 6.0 may help reduce the tendency for calcium phosphate stones and pH greater than 6.0 may reduce the tendency for uric acid stone formation. Source: [facility]. Last revised 03-26-2017 us Berny Carrera MD LAB MICROBIOLOGY - GENERA L ORDERABLES Final Result [facility] Department [place] [address] * POCT glucose (05/25/2019 3:34 AM CDT) Glucose, POC 164 70 - 199 mg/dL [facility] Blood specimen (specimen) 05/25/2019 3:34 AM CDT 05/25/2019 3:34 AM CDT Kaveh Charles MD LAB POCT ORDERABLES - [place]ST[place] CE Final Result Performing Organization Address [facility] de Phone Number [facility] [place] [address] * POCT glucose (05/24/2019 11:32 PM CDT) Glucose, POC 153 70 - 199 mg/dL [facility] Blood specimen (specimen) 05/24/2019 11:32 PM CDT 05/24/2019 11:32 PM CDT Kaveh Charles MD LAB POCT ORDERABLES - [place]STIN[place] CE Final Result Performing Organization Address [facility] de Phone Number [facility] Department [place] [address] * Magnesium (05/24/2019 10:08 PM CDT) Magnesium 2.2 1.4 - 2.5 mg/dL [facility] Blood specimen (specimen) 05/24/2019 10:08 PM CDT 05/24/2019 10:25 PM CDT Kaveh Charles MD LAB BLOOD ORDERABLES Final Result Performing Organization Address [facility] de Phone Number [facility] [place] [address] * Differential, auto (05/24/2019 10:08 PM CDT) Neutrophil abs 4.0 1.7 - 6.5 K/cumm [facility] Imm gran abs 0.0 0.0 - 0.1 K/cumm [facility] Lymphocyte abs 1.6 0.8 - 3.3 K/cumm [facility] Monocyte abs 0.7 0.2 - 0.8 K/cumm [facility] Eosinophil abs 0.1 0.0 - 0.5 K/cumm [facility] Basophil abs 0.0 0.0 - 0.1 K/cumm [facility] Neutrophil pct 62.6 % [facility] Comment: Interpretive Data Percent cell count reference ranges are not reported, since discordance with absolute values may lead to misinterpretation of CBC data. Current Interpretive Data was last revised on 2017. Imm gran pct 0.3 % [facility] Comment: Interpretive Data Percent cell count reference ranges are not reported, since discordance with absolute values may lead to misinterpretation of CBC data. Current Interpretive Data was last revised on 2017. Lymphocyte pct 24.5 % [facility] Comment: Interpretive Data Percent cell count reference ranges are not reported, since discordance with absolute values may lead to misinterpretation of CBC data. Current Interpretive Data was last revised on 2017. Monocyte pct 10.6 % [facility] Comment: Interpretive Data Percent cell count reference ranges are not reported, since discordance with absolute values may lead to misinterpretation of CBC data. Current Interpretive Data was last revised on 2017. Eosinophil pct 1.5 % [facility] Comment: Interpretive Data Percent cell count reference ranges are not reported, since discordance with absolute values may lead to misinterpretation of CBC data. Current Interpretive Data was last revised on 2017. Basophil pct 0.5 % [facility] Comment: Interpretive Data Percent cell count reference ranges are not reported, since discordance with absolute values may lead to misinterpretation of CBC data. Current Interpretive Data was last revised on 2017. Blood specimen (specimen) 05/24/2019 10:08 PM CDT 05/24/2019 10:25 PM CDT us Berny Carrera MD LAB BLOOD ORDERABLES Sri davalos Result [facility] Department [place] [address] * (ABNORMAL) Protime-INR (05/24/2019 10:08 PM CDT) PT 14.6(H) 8.6 - 13.0 sec [facility] INR 1.3(H) 0.8 - 1.2 [facility] Comment: Interpretive data Oral anticoagulant therapeutic ranges: Venous thromboembolism prophylaxis or treatment: 2.0-3.0 CARDIOLOGY Standard range: 2.0-3.0 High-intensity range: 2.5-3.5 Refer to indication-specific guidelines for appropriate target ranges for prosthetic heart valve replacement. Current interpretive data was last revised on 2019. Blood specimen (specimen) 05/24/2019 10:08 PM CDT 05/24/2019 10:18 PM CDT Kaveh Charles MD LAB BLOOD ORDERABLES Final Result [facility] Department [place] [address] * (ABNORMAL) Basic metabolic panel (05/24/2019 10:08 PM CDT) Pathologist [facility] Sodium 132(L) 135 - 145 mmol/L [facility] Potassium, pl 4.3 3.3 - 4.9 mmol/L [facility] Comment:Hemolyzed; Potassium value may be falsely elevated by as much as 0.6-1.0 mmol/L. Suggest redraw and reanalysis. Chloride 100 97 - 110 mmol/L [facility] CO2 23 22 - 32 mmol/L [facility] Anion gap 9 2 - 15 mmol/L [facility] BUN 18 8 - 25 mg/dL [facility] Creatinine 0.45(L) 0.60 - 1.10 mg/dL [facility] Glucose 149 70 - 199 mg/dL [facility] Comment: Interpretive Data Fasting glucose >/= 126 [...] 2017. Calcium 8.2(L) 8.5 - 10.3 mg/dL [facility] Blood specimen (specimen) 05/24/2019 10:08 PM CDT 05/24/2019 10:25 PM CDT Kaveh Charles MD LAB BLOOD ORDERABLES Final Result [facility] Department [place] [address] * (ABNORMAL) CBC with auto differential (05/24/2019 10:08 PM CDT) WBC 6.5 3.8 - 9.9 K/cumm [facility] Hgb 9.4(L) 11.9 - 15.5 g/dL [facility] Hct 28.7(L) 35.6 - 45.5 % [facility] Plt 194 150 - 400 K/cumm [facility] MPV 10.3 9.1 - 12.3 fL [facility] RBC 2.98(L) 3.90 - 5.20 M/cumm [facility] MCV 96.3 81.3 - 96.4 fL [facility] MCH 31.5 27.1 - 33.3 pg [facility] MCHC 32.8 32.3 - 35.7 g/dL [facility] RDW CV 13.9 11.1 - 14.9 % [facility] RDW SD 48.5(H) 35.7 - 48.1 fL [facility] NRBC abs 0.00 0.00 - 0.01 K/cumm [facility] Blood specimen (specimen) 05/24/2019 10:08 PM CDT 05/24/2019 10:25 PM CDT us Kaveh Charles MD LAB BLOOD ORDERABLES Final Result Performing Organization Address [facility] Co de Phone Number [facility] [place] [address] * POCT glucose (05/24/2019 8:59 PM CDT) Glucose, POC 159 70 - 199 mg/dL [facility] Blood specimen (specimen) 05/24/2019 8:59 PM CDT 05/24/2019 8:59 PM CDT Kaveh Charles MD LAB POCT ORDERABLES - [place]STIN[place] CE Final Result Performing Organization Address [facility] Co de Phone Number [facility] [place] [address] * POCT glucose (05/24/2019 3:28 PM CDT) Glucose, POC 187 70 - 199 mg/dL [facility] Blood specimen (specimen) 05/24/2019 3:28 PM CDT 05/24/2019 3:28 PM CDT Kaveh Charles MD LAB POCT ORDERABLES - [place]IN[place] CE Final Result Performing Organization Address [facility] Co de Phone Number [facility] [place] [address] * POCT glucose (05/24/2019 11:16 AM CDT) Glucose, POC 189 70 - 199 mg/dL [facility] Blood specimen (specimen) 05/24/2019 11:16 AM CDT 05/24/2019 11:16 AM CDT us Kaveh Charles MD LAB POCT ORDERABLES - [place]IN[place] CE Final Result Performing Organization Address [facility] Co de Phone Number [facility] [place] [address] * POCT glucose (05/24/2019 7:54 AM CDT) Glucose, POC 161 70 - 199 mg/dL [facility] Blood specimen (specimen) 05/24/2019 7:54 AM CDT 05/24/2019 7:54 AM CDT us Kaveh Charles MD LAB POCT ORDERABLES - [place]STINEE CE Final Result Performing Organization Address City/[facility] [place] [address] * POCT glucose (05/24/2019 4:54 AM CDT) Glucose, POC 155 70 - 199 mg/dL [facility] Blood specimen (specimen) 05/24/2019 4:54 AM CDT 05/24/2019 4:54 AM CDT us Kaveh Charles MD LAB POCT ORDERABLES - [place]STINEE CE Final Result Performing Organization Address City/[facility] Co de Phone Number [facility] [address] * POCT glucose (05/24/2019 12:43 AM CDT) Glucose, POC 155 70 - 199 mg/dL [facility] Blood specimen (specimen) 05/24/2019 12:43 AM CDT 05/24/2019 12:43 AM CDT Kaveh Charles MD LAB POCT ORDERABLES - DESTINEE CE Final Result Performing Organization Address City/[facility]/ZIP Co de Phone Number [facility] [place] [address] * Differential, auto (05/23/2019 10:20 PM CDT) Neutrophil abs 4.7 1.7 - 6.5 K/cumm [facility] Imm gran abs 0.0 0.0 - 0.1 K/cumm [facility] Lymphocyte abs 1.5 0.8 - 3.3 K/cumm [facility] Monocyte abs 0.7 0.2 - 0.8 K/cumm [facility] Eosinophil abs 0.0 0.0 - 0.5 K/cumm [facility] Basophil abs 0.0 0.0 - 0.1 K/cumm [facility] Neutrophil pct 66.8 % [facility] Comment: Interpretive Data Percent cell count reference ranges are not reported, since discordance with absolute values may lead to misinterpretation of CBC data. Current Interpretive Data was last revised on 2017. Imm gran pct 0.4 % [facility] Comment: Interpretive Data Percent cell count reference ranges are not reported, since discordance with absolute values may lead to misinterpretation of CBC data. Current Interpretive Data was last revised on 2017. Lymphocyte pct 21.6 % [facility] Comment: Interpretive Data Percent cell count reference ranges are not reported, since discordance with absolute values may lead to misinterpretation of CBC data. Current Interpretive Data was last revised on 2017. Monocyte pct 10.2 % [facility] Comment: Interpretive Data Percent cell count reference ranges are not reported, since discordance with absolute values may lead to misinterpretation of CBC data. Current Interpretive Data was last revised on 2017. Eosinophil pct 0.7 % [facility] Comment: Interpretive Data Percent cell count reference ranges are not reported, since discordance with absolute values may lead to misinterpretation of CBC data. Current Interpretive Data was last revised on 2017. Basophil pct 0.3 % [facility] Comment: Interpretive Data Percent cell count reference ranges are not reported, since discordance with absolute values may lead to misinterpretation of CBC data. Current Interpretive Data was last revised on 2017. Blood specimen (specimen) 05/23/2019 10:20 PM CDT 05/23/2019 10:42 PM CDT us Berny aCrrera MD LAB BLOOD ORDERABLES Sri l Result [facility] Department [place] [address] * (ABNORMAL) Basic metabolic panel (05/23/2019 10:20 PM CDT) Pathologist [facility] Sodium 136 135 - 145 mmol/L [facility] Potassium, pl 3.8 3.3 - 4.9 mmol/L [facility] Chloride 101 97 - 110 mmol/L [facility] CO2 30 22 - 32 mmol/L [facility] Anion gap 5 2 - 15 mmol/L [facility] BUN 18 8 - 25 mg/dL [facility] Creatinine 0.59(L) 0.60 - 1.10 mg/dL [facility] Glucose 163 70 - 199 mg/dL [facility] Comment: Interpretive Data Fasting glucose >/= 126 [...] 2017. Calcium 8.8 8.5 - 10.3 mg/dL [facility] Blood specimen (specimen) 05/23/2019 10:20 PM CDT 05/23/2019 10:42 PM CDT Kaveh Charles MD LAB BLOOD ORDERABLES Final Result [facility] Department [place] [address] * (ABNORMAL) CBC with auto differential (05/23/2019 10:20 PM CDT) WBC 7.0 3.8 - 9.9 K/cumm [facility] Hgb 9.2(L) 11.9 - 15.5 g/dL [facility] Hct 28.1(L) 35.6 - 45.5 % [facility] Plt 186 150 - 400 K/cumm [facility] MPV 9.8 9.1 - 12.3 fL [facility] RBC 2.92(L) 3.90 - 5.20 M/cumm [facility] MCV 96.2 81.3 - 96.4 fL [facility] MCH 31.5 27.1 - 33.3 pg [facility] MCHC 32.7 32.3 - 35.7 g/dL [facility] RDW CV 13.9 11.1 - 14.9 % [facility] RDW SD 49.3(H) 35.7 - 48.1 fL [facility] NRBC abs 0.00 0.00 - 0.01 K/cumm [facility] Blood specimen (specimen) 05/23/2019 10:20 PM CDT 05/23/2019 10:42 PM CDT us Kaveh Charles MD LAB BLOOD ORDERABLES Final Result Performing Organization Address City/[facility]/ZIP Co de Phone Number [facility] [place] [address] * POCT glucose (05/23/2019 9:43 PM CDT) [facility] Glucose, POC 173 70 - 199 mg/dL [facility] Blood specimen (specimen) 05/23/2019 9:43 PM CDT 05/23/2019 9:43 PM CDT Kaveh Charles MD LAB POCT ORDERABLES - [place] CE Final Result Performing Organization Address City/[facility]/ZIP Co de Phone Number [facility] Department [place] [address] * POCT glucose (05/23/2019 4:35 PM CDT) Glucose, POC 165 70 - 199 mg/dL [facility] Blood specimen (specimen) 05/23/2019 4:35 PM CDT 05/23/2019 4:35 PM CDT Kaveh Charles MD LAB POCT ORDERABLES - [place] CE Final Result Performing Organization Address City/[facility] Co de Phone Number [facility] [place] [place] [address] * POCT glucose (05/23/2019 11:22 AM CDT) Glucose, POC 174 70 - 199 mg/dL [facility] Blood specimen (specimen) 05/23/2019 11:22 AM CDT 05/23/2019 11:22 AM CDT Kaveh Charles MD LAB POCT ORDERABLES - [place] CE Final Result Performing Organization Address [facility] [place] [address] * POCT glucose (05/23/2019 8:21 AM CDT) Glucose, POC 169 70 - 199 mg/dL [facility] Blood specimen (specimen) 05/23/2019 8:21 AM CDT 05/23/2019 8:21 AM CDT Kaveh Charles MD LAB POCT ORDERABLES - [place] CE Final Result Performing Organization Address [facility] [place] [address] * POCT glucose (05/23/2019 4:42 AM CDT) Glucose, POC 156 70 - 199 mg/dL [facility] Blood specimen (specimen) 05/23/2019 4:42 AM CDT 05/23/2019 4:42 AM CDT Kaveh Charles MD LAB POCT ORDERABLES - [place] CE Final Result Performing Organization Address City/[facility] Co de Phone Number [facility] Department [place] [address] * POCT glucose (05/23/2019 12:12 AM CDT) Pathologist [facility] Glucose, POC 183 70 - 199 mg/dL [facility] Blood specimen (specimen) 05/23/2019 12:12 AM CDT 05/23/2019 12:12 AM CDT Kavhe Charles MD LAB POCT ORDERABLES - [place] CE Final Result Performing Organization Address City/[facility] de Phone Number [facility] [place] [address] * Differential, auto (05/22/2019 11:17 PM CDT) [facility] Neutrophil abs 5.3 1.7 - 6.5 K/cumm [facility] Imm gran abs 0.0 0.0 - 0.1 K/cumm [facility] Lymphocyte abs 1.3 0.8 - 3.3 K/cumm [facility] Monocyte abs 0.8 0.2 - 0.8 K/cumm [facility] Eosinophil abs 0.0 0.0 - 0.5 K/cumm [facility] Basophil abs 0.0 0.0 - 0.1 K/cumm [facility] Neutrophil pct 71.2 % [facility] Comment: Interpretive Data Percent cell count reference ranges are not reported, since discordance with absolute values may lead to misinterpretation of CBC data. Current Interpretive Data was last revised on 2017. Imm gran pct 0.3 % [facility] Comment: Interpretive Data Percent cell count reference ranges are not reported, since discordance with absolute values may lead to misinterpretation of CBC data. Current Interpretive Data was last revised on 2017. Lymphocyte pct 17.6 % [facility] Comment: Interpretive Data Percent cell count reference ranges are not reported, since discordance with absolute values may lead to misinterpretation of CBC data. Current Interpretive Data was last revised on 2017. Monocyte pct 10.1 % [facility] Comment: Interpretive Data Percent cell count reference ranges are not reported, since discordance with absolute values may lead to misinterpretation of CBC data. Current Interpretive Data was last revised on 2017. Eosinophil pct 0.5 % [facility] Comment: Interpretive Data Percent cell count reference ranges are not reported, since discordance with absolute values may lead to misinterpretation of CBC data. Current Interpretive Data was last revised on 2017. Basophil pct 0.3 % [facility] Comment: Interpretive Data Percent cell count reference ranges are not reported, since discordance with absolute values may lead to misinterpretation of CBC data. Current Interpretive Data was last revised on 2017. Blood specimen (specimen) 05/22/2019 11:17 PM CDT 05/22/2019 11:35 PM CDT Berny Carrera MD LAB BLOOD ORDERABLES Sri davalos Result [facility] Department [place] [address] * (ABNORMAL) Basic metabolic panel (05/22/2019 11:17 PM CDT) Sodium 136 135 - 145 mmol/L [facility] Potassium, pl 3.7 3.3 - 4.9 mmol/L [facility] Chloride 102 97 - 110 mmol/L [facility] CO2 29 22 - 32 mmol/L [facility] Anion gap 5 2 - 15 mmol/L [facility] BUN 25 8 - 25 mg/dL [facility] Creatinine 0.83 0.60 - 1.10 mg/dL [facility] Glucose 180 70 - 199 mg/dL [facility] Comment: Interpretive Data Fasting glucose >/= 126 [...] 2017. Calcium 8.4(L) 8.5 - 10.3 mg/dL [facility] Blood specimen (specimen) 05/22/2019 11:17 PM CDT 05/22/2019 11:34 PM CDT Kaveh Charles MD LAB BLOOD ORDERABLES Final Result [facility] Department [place] [address] * (ABNORMAL) CBC with auto differential (05/22/2019 11:17 PM CDT) WBC 7.4 3.8 - 9.9 K/cumm [facility] Hgb 9.9(L) 11.9 - 15.5 g/dL [facility] Hct 30.3(L) 35.6 - 45.5 % [facility] Plt 203 150 - 400 K/cumm [facility] MPV 10.3 9.1 - 12.3 fL [facility] RBC 3.15(L) 3.90 - 5.20 M/cumm [facility] MCV 96.2 81.3 - 96.4 fL [facility] MCH 31.4 27.1 - 33.3 pg [facility] MCHC 32.7 32.3 - 35.7 g/dL [facility] RDW CV 13.9 11.1 - 14.9 % [facility] RDW SD 48.9(H) 35.7 - 48.1 fL [facility] NRBC abs 0.00 0.00 - 0.01 K/cumm [facility] Blood specimen (specimen) 05/22/2019 11:17 PM CDT 05/22/2019 11:35 PM CDT Kaveh Charles MD LAB BLOOD ORDERABLES Final Result Performing Organization Address [facility] Co de Phone Number [facility] [place] [address] * POCT glucose (05/22/2019 9:23 PM CDT) Glucose, POC 171 70 - 199 mg/dL [facility] Blood specimen (specimen) 05/22/2019 9:23 PM CDT 05/22/2019 9:23 PM CDT Kaveh Charles MD LAB POCT ORDERABLES - [place] CE Final Result Performing Organization Address [facility] Co de Phone Number [facility] [place] [place] [address] * POCT glucose (05/22/2019 5:18 PM CDT) Glucose, POC 147 70 - 199 mg/dL [facility] Blood specimen (specimen) 05/22/2019 5:18 PM CDT 05/22/2019 5:18 PM CDT Kaveh hCarles MD LAB POCT ORDERABLES - [place] CE Final Result Performing Organization Address City/[facility] [place] [address] * POCT glucose (05/22/2019 11:21 AM CDT) Glucose, POC 171 70 - 199 mg/dL [facility] Blood specimen (specimen) 05/22/2019 11:21 AM CDT 05/22/2019 11:21 AM CDT us Steve Garcia MD LAB POCT ORDERABLES - DEV ICE Final Result Performing Organization Address [facility] [place] [address] * POCT glucose (05/22/2019 10:30 AM CDT) Glucose, POC 104 70 - 199 mg/dL [facility] Glucose comment 1 RN Notified [facility] Blood specimen (specimen) 05/22/2019 10:30 AM CDT 05/22/2019 10:30 AM CDT us Steve Garcia MD LAB POCT ORDERABLES - DEV ICE Final Result Performing Organization Address [facility] [place] [address] * POCT glucose (05/22/2019 8:29 AM CDT) Glucose, POC 131 70 - 199 mg/dL [facility] Blood specimen (specimen) 05/22/2019 8:29 AM CDT 05/22/2019 8:29 AM CDT us Steve Garcia MD LAB POCT ORDERABLES - DEV ICE Final Result Performing Organization Address City/[facility] [place] [address] * POCT glucose (05/22/2019 6:39 AM CDT) Glucose, POC 178 70 - 199 mg/dL [facility] Blood specimen (specimen) 05/22/2019 6:39 AM CDT 05/22/2019 6:39 AM CDT us Steve Garcia MD LAB POCT ORDERABLES - [place] [address] * POCT glucose (05/22/2019 4:59 AM CDT) Glucose, POC 190 70 - 199 mg/dL [facility] Blood specimen (specimen) 05/22/2019 4:59 AM CDT 05/22/2019 4:59 AM CDT Steve Garcia MD LAB POCT ORDERABLES - DEV ICE Final Result Performing Organization Address [facility] [place] [address] * (ABNORMAL) Protime-INR (05/22/2019 4:57 AM CDT) [facility] PT 15.1(H) 8.6 - 13.0 sec [facility] INR 1.4(H) 0.8 - 1.2 [facility] Comment: Interpretive data Oral anticoagulant therapeutic ranges: [...] ORDERABLES Sri l Result Performing Organization Address City/[facility] [place] [address] * POCT glucose (05/22/2019 12:39 AM PRACTICE SPECIALIST) Glucose, POC 160 70 - 199 mg/dL [facility] Blood specimen (specimen) 05/22/2019 12:39 AM PRACTICE SPECIALIST 05/22/2019 12:39 AM PRACTICE SPECIALIST us Steve Garcia MD LAB POCT ORDERABLES - DEV ICE Final Result Performing Organization Address [facility] de Phone Number [facility] Department [place] [address] * Check Sample (05/21/2019 11:48 PM PRACTICE SPECIALIST) ABO Rh O Positive [facility] HCLL OTHER 05/21/2019 11:4 8 PM PRACTICE SPECIALIST 05/22/2019 12:22 AM PRACTICE SPECIALIST us Steve Garcia MD LAB BLOOD ORDERABLES Sri l Result Performing Organization Address [facility] de Phone Number [facility] Department [place] [address] * POCT glucose (05/21/2019 11:47 PM PRACTICE SPECIALIST) Glucose, POC 158 70 - 199 mg/dL [facility] Blood specimen (specimen) 05/21/2019 11:47 PM PRACTICE SPECIALIST 05/21/2019 11:47 PM PRACTICE SPECIALIST Steve Garcia MD LAB POCT ORDERABLES - DEV ICE Final Result Performing Organization Address [facility] de Phone Number [facility] [place] [address] * CT Knee Left WO Contrast (05/21/2019 10:21 PM PRACTICE SPECIALIST) Anatomical Region Laterality Modality Lower Extremities Left Computed Tomog noel 05/21/2019 10:4 6 PM PRACTICE SPECIALIST Impressions 05/23/2019 9:24 AM CDT 1. [...] CT MR Outside Consult (05/21/2019 8:41 PM PRACTICE SPECIALIST) Anatomical Region Laterality Modality N/A Computed Tomogra phy 05/21/2019 8:49 PM PRACTICE SPECIALIST Impressions 05/22/2019 9:46 AM CDT 1. [...] images may or may not represent the [employer] source data set and thus may contain [...] IMAGING STUDY STUDY INITIALLY PERFORMED: 05/21/2019 at [facility]. TYPE OF STUDY: Multiple CT images of [...] IMAGING STUDY STUDY INITIALLY PERFORMED: 05/21/2019 at [facility]. TYPE OF STUDY: Multiple CT images of [...] images may or may not represent the [employer] source data set and thus may contain [...] Cervical Spine WO Contrast (05/21/2019 8:29 PM PRACTICE SPECIALIST) Anatomical Region Laterality Modality Spine N/A Computed Tomogra phy 05/21/2019 8:43 PM PRACTICE SPECIALIST Addenda Addendum by Isreal Izaguirre MD PhD on 02/27/2021 9:33 PM PRACTICE SPECIALIST Patient had follow up with ENT [...] Alessandro Nahun Malone MD IMG CT PROCEDURES Edite d Result - Final * XR Knee Left 1 or 2 Views (05/21/2019 8:26 PM PRACTICE SPECIALIST) Anatomical Region Laterality Modality Lower Extremities, Knee Left Computed Radiography 05/21/2019 8:37 PM PRACTICE SPECIALIST Impressions 05/23/2019 7:07 AM CDT 1. [...] 1 or 2 Views (05/21/2019 8:26 PM PRACTICE SPECIALIST) Anatomical Region Laterality Modality Body, Pelvis N/A Computed Radiogr aphy 05/21/2019 8:37 PM PRACTICE SPECIALIST Impressions 05/23/2019 7:07 AM CDT 1. [...] 2 or More Views (05/21/2019 8:25 PM PRACTICE SPECIALIST) Anatomical Region Laterality Modality Lower Extremities, Thigh, Femur Left Computed Radiography 05/21/2019 8:37 PM PRACTICE SPECIALIST Impressions 05/23/2019 7:07 AM CDT 1. [...] XR Chest 1 View (05/21/2019 8:24 PM PRACTICE SPECIALIST) Anatomical Region Laterality Modality Body, Chest N/A Computed Radiogr aphy 05/21/2019 8:29 PM PRACTICE SPECIALIST Impressions 05/23/2019 7:07 AM CDT Comparison [...] * (ABNORMAL) Differential, auto (05/21/2019 7:43 PM PRACTICE SPECIALIST) Neutrophil abs 7.8(H) 1.7 - 6.5 K/cumm [facility] Imm gran abs 0.0 0.0 - 0.1 K/cumm [facility] Lymphocyte abs 1.4 0.8 - 3.3 K/cumm [facility] Monocyte abs 0.6 0.2 - 0.8 K/cumm [facility] Eosinophil abs 0.0 0.0 - 0.5 K/cumm [facility] Basophil abs 0.0 0.0 - 0.1 K/cumm [facility] Neutrophil pct 78.3 % [facility] Comment: Interpretive Data Percent cell count reference ranges are not reported, since discordance with absolute values may lead to misinterpretation of CBC data. Current Interpretive Data was last revised on 2017. Imm gran pct 0.5 % [facility] Comment: Interpretive Data Percent cell count reference ranges are not reported, since discordance with absolute values may lead to misinterpretation of CBC data. Current Interpretive Data was last revised on 2017. Lymphocyte pct 14.2 % [facility] Comment: Interpretive Data Percent cell count reference ranges are not reported, since discordance with absolute values may lead to misinterpretation of CBC data. Current Interpretive Data was last revised on 2017. Monocyte pct 6.6 % [facility] Comment: Interpretive Data Percent cell count reference ranges are not reported, since discordance with absolute values may lead to misinterpretation of CBC data. Current Interpretive Data was last revised on 2017. Eosinophil pct 0.1 % [facility] Comment: Interpretive Data Percent cell count reference ranges are not reported, since discordance with absolute values may lead to misinterpretation of CBC data. Current Interpretive Data was last revised on 2017. Basophil pct 0.3 % [facility] Comment: Interpretive Data Percent cell count reference ranges are not reported, since discordance with absolute values may lead to misinterpretation of CBC data. Current Interpretive Data was last revised on 2017. Blood specimen (specimen) 05/21/2019 7:43 PM PRACTICE SPECIALIST 05/21/2019 8:08 PM PRACTICE SPECIALIST Alessandro Malone MD LAB BLOOD ORDERABLES Fi nal Result Performing Organization Address [facility] de Phone Number [facility] [place] [place] [address] * aPTT (05/21/2019 7:43 PM PRACTICE SPECIALIST) aPTT 32 25 - 37 sec [facility] Comment: Interpretive data Heparin therapeutic range: 60-90 seconds Range based on correlation with therapeutic heparin activity range of 0.3-0.7 units/ml. Current interpretive data was last revised on 2019. Blood specimen (specimen) 05/21/2019 7:43 PM PRACTICE SPECIALIST 05/21/2019 7:52 PM PRACTICE SPECIALIST Narrative [facility] - 05/21/2019 8:23 PM PRACTICE SPECIALIST THE COLLECTION LOCATION IS [address] Alessandro Malone MD LAB BLOOD ORDERABLES Fi nal Result Performing Organization Address [facility] de Phone Number [facility] [place] [place] [address] * (ABNORMAL) Protime-INR (05/21/2019 7:43 PM PRACTICE SPECIALIST) PT 33.0(H) 8.6 - 13.0 sec [facility] INR 3.0(H) 0.8 - 1.2 [facility] Comment: Interpretive data Oral anticoagulant therapeutic ranges: Venous thromboembolism prophylaxis or treatment: 2.0-3.0 CARDIOLOGY Standard range: 2.0-3.0 High-intensity range: 2.5-3.5 Refer to indication-specific guidelines for appropriate target ranges for prosthetic heart valve replacement. Current interpretive data was last revised on 2019. Blood specimen (specimen) 05/21/2019 7:43 PM PRACTICE SPECIALIST 05/21/2019 7:52 PM PRACTICE SPECIALIST Narrative [facility] - 05/21/2019 8:23 PM PRACTICE SPECIALIST THE COLLECTION LOCATION IS [id number] Alessandro Malone MD LAB BLOOD ORDERABLES Fi nal Result Performing Organization Address [facility] [place] [address] * Type and screen (05/21/2019 7:43 PM PRACTICE SPECIALIST) Pathologist [facility] ABO Rh O Positive [facility] Gian, indirect Negative [facility] Blood specimen (specimen) 05/21/2019 7:43 PM PRACTICE SPECIALIST 05/21/2019 10:01 PM PRACTICE SPECIALIST Narrative [facility] - 05/21/2019 10:57 PM PRACTICE SPECIALIST Has the patient had Daratumumab (Darzalex) in the past 6 months?->Unknown THE COLLECTION LOCATION IS [id number] Alessandro Malone MD LAB BLOOD BANK TEST ORD ERABLES Final Result Performing Organization Address [facility] de Phone Number [facility] [place] [address] * (ABNORMAL) Comprehensive metabolic panel (05/21/2019 7:43 PM PRACTICE SPECIALIST) [facility] Sodium 137 135 - 145 mmol/L [facility] Potassium, pl 3.8 3.3 - 4.9 mmol/L [facility] Chloride 103 97 - 110 mmol/L [facility] CO2 25 22 - 32 mmol/L [facility] Anion gap 9 2 - 15 mmol/L [facility] BUN 17 8 - 25 mg/dL [facility] Creatinine 0.53(L) 0.60 - 1.10 mg/dL [facility] Glucose 180 70 - 199 mg/dL [facility] Comment: Interpretive Data Fasting glucose >/= 126 [...] 2017. Calcium 9.2 8.5 - 10.3 mg/dL [facility] Bilirubin, total 1.0 0.1 - 1.2 mg/dL [facility] Protein, pl 7.1 6.5 - 8.5 g/dL [facility] Albumin 3.6 3.5 - 5.0 g/dL [facility] Alk phos 78 40 - 130 Units/L [facility] ALT 38 7 - 45 Units/L [facility] AST 64(H) 10 - 45 Units/L [facility] Blood specimen (specimen) 05/21/2019 7:43 PM PRACTICE SPECIALIST 05/21/2019 8:07 PM PRACTICE SPECIALIST Narrative [facility] - 05/21/2019 8:34 PM PRACTICE SPECIALIST THE COLLECTION LOCATION IS [address] Alessandro Malone MD LAB BLOOD ORDERABLES nal Result [facility] Department [place] [address] * (ABNORMAL) CBC with auto differential (05/21/2019 7:43 PM PRACTICE SPECIALIST) WBC 9.9 3.8 - 9.9 K/cumm [facility] Hgb 12.0 11.9 - 15.5 g/dL [facility] Hct 36.7 35.6 - 45.5 % [facility] Plt 259 150 - 400 K/cumm [facility] MPV 10.3 9.1 - 12.3 fL [facility] RBC 3.82(L) 3.90 - 5.20 M/cumm [facility] MCV 96.1 81.3 - 96.4 fL [facility] MCH 31.4 27.1 - 33.3 pg [facility] MCHC 32.7 32.3 - 35.7 g/dL [facility] RDW CV 13.7 11.1 - 14.9 % [facility] RDW SD 48.4(H) 35.7 - 48.1 fL [facility] NRBC abs 0.00 0.00 - 0.01 K/cumm [facility] Blood specimen (specimen) 05/21/2019 7:43 PM PRACTICE SPECIALIST 05/21/2019 8:08 PM PRACTICE SPECIALIST Narrative [facility] - 05/21/2019 8:16 PM PRACTICE SPECIALIST THE COLLECTION LOCATION IS [address] us Alessandro Malone MD LAB BLOOD ORDERABLES Fi nal Result [facility] Department [place] [address] * (ABNORMAL) ECG 12-LEAD (05/21/2019 7:40 PM PRACTICE SPECIALIST) Narrative [facility] - 05/21/2019 7:40 PM PRACTICE SPECIALIST Berny Carrera MD ? 05/21/2019 ??7:40 [...] workup in the ED Berny Carrera MD 05/21/19 194 Alessandro Malone MD ECG ORDERABLES Final R esult Performing Organization Address [facility] Co de Phone Number [facility] [place] [facility] * XR Outside Reference (05/21/2019 7:33 PM PRACTICE SPECIALIST) Impressions [facility] - 05/21/2019 7:33 PM PRACTICE SPECIALIST These images are for Reference purposes only and have not been reviewed by [facility] Radiology. ??There will be no report generated by a [facility] Radiologist. Narrative [facility] - 05/21/2019 7:33 PM PRACTICE SPECIALIST EXAMINATION: ??Images For Reference Purposes Only Alessandro Malone MD IMG XR PROCEDURES Final Result Performing Organization Address [facility] de Phone Number [email or web address] * POCT glucose (05/21/2019 7:27 PM PRACTICE SPECIALIST) Glucose, POC 171 70 - 199 mg/dL [facility] Blood specimen (specimen) 05/21/2019 7:27 PM PRACTICE SPECIALIST 05/21/2019 7:27 PM PRACTICE SPECIALIST Notinfile Unknown LAB POCT ORDERABLES - DEVICE F inal Result Performing Organization Address [facility] de Phone Number [facility] [place] [address] documented in this encounter Visit Diagnoses Diagnosis Open fracture of left distal femur (CMS/HCC) (HCC)- Primary Closed fracture of distal end of left femur, unspecified fracture morphology, initial encounter (HCC) Other type I or II open fracture of distal end of left femur, initial encounter (HCC) Other type I or II open fracture of distal end of left femur, initial encounter (HCC) documented [...] oral, 2 times daily, First dose on [facility] 05/21/19 at 2222 Given 05/27/2019 8:14 AM CDT 25 mg Given 05/26/2019 9:38 PM CDT 25 mg Given 05/26/2019 9:28 AM CDT 25 mg dextrose (D10W) 10% bolus 250 mL 250 mL, intravenous, at 1,000 mL/hr, Administer over 15 Minutes, Every 15 min PRN, blood glucose less than 70 mg/dL and UNABLE to swallow/take PO glucose/juice., Starting on [place] 05/22/19 at 0011, After treatment for hypoglycemia, [...] Call MD for each episode of hypoglycemia. ANALYTICAL CHEMIST STATES GLUTOSE-15 CONTAINS GLUCOSE 40% W/W (50% [...] Given 05/25/2019 7:55 AM CDT 60 mg famotidine (PEPCID) tablet [...] 0.9 % irrigation As needed, Starting on Thu05/22/19 at 0830, Intra-Op Given 05/22/2019 9:02 AM CDT 6,000 mL Surgical Site Given 05/22/2019 8:30 AM CDT 1,000 mL Lorenz rgical Site sodium chloride 0.9% flush 0.5-20 mL 0.5-20 mL, intra-catheter, Every 8 hours scheduled, First dose on Thu05/25/19 at 2200, Flush volume based on line type and size. Given 05/27/2019 2:26 PM CDT 10 mL Given 05/27/2019 5:29 AM CDT 10 mL Given 05/26/2019 9:39 PM CDT 10 mL sterile water irrigation As needed, Starting on Thu05/22/19 at 0830, Intra-Op Given 05/22/2019 8:30 AM CDT 1,000 mL Other (Comment) warfarin (COUMADIN) [...] Mary Lamar, ARMANI)[phone] (Given - Provider: Mary Lamar RN)[id number] (MAY Hold - Provider: Automatic Transfer Provider - Reason: Patient not available)1200 (Dose Auto Held - Provider: Automatic Transfer Provider)1723 (MAY Unhold - Provider: Ryann Mcqueen, ARMANI)1814 (Given - Provider: Ryann Mcqueen, ARMANI)2302 (Given - Provider: Moriah Hall, ARMANI) 0609 (Not Given - Provider: Moriah Hall RN - Reason: Medication not available)1147 (Given - Provider: Gen Oleary RN)1820 (Given - Provider: Gen Oleary, ARMANI)2313 (Given - Provider: Denisa Jean RN) 0618 (Given - Provider: Denisa Galdamez RN)1157 (Given - Provider: Kendy Nicole, ARMANI) amLODIPine (NORVASC) tablet 5 mg 5 mg, oral, Daily, First dose on 05/22/19 at 0900 0755 (Given - Provider: Holly Leonard RN)1012 (MAY Hold - Provider: Automatic Transfer Provider - Reason: Patient not available)1723 (MAY Unhold - Provider: Ryann Mcqueen RN) 0928 (Given - Provider: Gen Oleary, ARMANI) 0813 (Given - Provider: Kendy Nicole, ARMANI) carvediloL (COREG) tablet 25 mg 25 mg, oral, 2 times daily, First dose on 05/21/19 at 2222 0755 (Given - Provider: Holly Leonard RN)1012 (MAY Hold - Provider: Automatic Transfer Provider - Reason: Patient not available)1723 (MAY Unhold - Provider: Ryann Mcqueen RN)2249 (Not Given - Provider: Moriah Hall RN - Reason: Contraindicated) 0928 (Given - Provider: Gen Oleary, ARMANI)2138 (Given - Provider: Julissa Eaton RN) 0814 [...] after last taya-operative dose., Indications: Prophylaxis, Surgical 2104 (New Bag - Provider: Moriah Hall RN) 0428 (New Bag - Provider: Moriah [...] Mcqueen RN) 0929 (Given - Provider: Gen Oleary RN) 0814 (Given - Provider: Kendy Nicole, [...] Gen Oleary, ARMANI)2133 (Given - Provider: Julissa Eaton, ARMANI) 0813 (Given - Provider: Kendy Nicole RN) insulin lispro (HumaLOG) injection 1-2 Units 1-2 [...] Provider)1723 (MAR Unhold - Provider: Ryann Mcqueen RN)2108 (Not Given - Provider: Moriah Hall RN - Reason: Contraindicated)2304 (Not Given - Provider: Moriah Hall RN - Reason: Contraindicated) 0610 (Not Given - Provider: Moriah Hall RN - Reason: Contraindicated)0928 (Given - Provider: Gen Oleary, ARMANI)1147 (Given - Provider: Gen Oleary RN - [...] Comment: [phone] (Not Given - Provider: Knedy Nicole RN - Reason: Order parameters not met)1157 (Given - Provider: Kendy Nicole, ARMNAI) ketorolac (TORADOL) injection 15 mg (COMPLETED) 15 [...] (MAR Unhold - Provider: Ryann Mcqueen RN) 0928 (Given - Provider: Gen Oleary, ARMANI) [...] on 05/22/19 at 2100, Take with food 1012 (MAY Hold - Provider: Automatic Transfer Provider - Reason: Patient not available)1723 (MAY Unhold - Provider: Ryann Mcqueen, ARMANI)2105 (Given - Provider: Moriah Hall RN) 2133 (Given - Provider: Julissa Eaton RN) [...] Indications: Pain 0609 (Given - Provider: Moriah Hall, ARMANI)1147 (Given - Provider: Gen Oleary RN)1543 (Given - Provider: Gen Oleary RN)1820 (Given - Provider: Gen Oleary, ARMANI)2210 (Given - Provider: Julissa Eaton RN) 0245 (Given - Provider: Denisa Galdamez RN)0618 (Given - Provider: Denisa Galdamez RN)1018 (Given - Provider: Kendy Nicole, ARMANI)1426 (Given - Provider: Kendy Nicole, ARMANI) senna-docusate (PERICOLACE) 8.6-50 mg per tablet 2 tablet 2 tablet, oral, 2 times daily, First dose on Thu05/25/19 at 2100, Hold for diarrhea., Indications: constipation 2104 (Given - Provider: Moriah Hall RN) 0928 (Given - Provider: Gen Oleary RN)213 (Given - Provider: Julissa Eaton RN) 0813 [...] volume based on line type and size. 2106 (Given - Provider: Moriah Hall RN) 0610 [...] Surgical 2302 (New Bag - Provider: Moriah Hall, ARMANI) warfarin (COUMADIN) tablet 2 mg 2 mg, [...] 0428 (New Bag - Provider: Moriah Hall, ARMANI)1842 (Stopped - Provider: Gen Oleary, ARMANI) PRN [...] episode of hypoglycemia., Indications: hypoglycemic disorder 101 ([facility] Hold - Provider: Automatic Transfer Provider - Reason: Patient not available)1722 ([facility] Unhold - Provider: Ryann Mcqueen RN) [...] Call MD for each episode of hypoglycemia. ANALYTICAL CHEMIST STATES GLUTOSE-15 CONTAINS GLUCOSE 40% W/W (50% W/V), Indications: hypoglycemic disorder 1011 ([facility] Hold - Provider: Automatic Transfer Provider - Reason: Patient not available)1722 ([facility] Unhold - Provider: Ryann Mcqueen RN) [...] for each episode of hypoglycemia., Indications: Hypoglycemia 101 ([facility] Hold - Provider: Automatic Transfer Provider - Reason: Patient not available)1722 ([facility] Unhold - Provider: Ryann Mcqueen, ARMANI) HYDROmorphone [...] Diabetes Mellitus 1603 (Given - Provider: Lindsay Negron RN) ondansetron (ZOFRAN) injection 4 mg(Linked Group 2) 4 mg, intravenous, Administer over 2 Minutes, Every 6 hours PRN, nausea, vomiting, if not tolerating PO, Starting on Thu05/25/19 at 1723, Indications: nausea and vomiting 1121 ([facility] [place] - Provider: Kendy Nicole, ARMANI) ondansetron ODT [...] Automatic Transfer Provider - Reason: Patient not available)172 (MAR Unhold - Provider: Ryann Mcqueen, ARMANI)1815 [...] Call MD for each episode of hypoglycemia. ANALYTICAL CHEMIST STATES GLUTOSE-15 CONTAINS GLUCOSE 40% W/W (50% [...] (premix) 2,000 mg 4 05/25/2019 05/21/19 20 EPINEPHrine 0.15 mg in bacte riostatic 0.9% sodium chloride 30 mL solution 1 05/25/2019 famotidine (PEPCID) tablet 20 mg 1 05/25/19 [...] tablet 2 tablet 1 05/25/2019 sodium chloride 0.9 % irrigation 1 05/25/19 20 sodium chloride 0.9% flush 0.5-20 mL 4 05/1405/22/2019 sodium chloride 0.9% infusion 1 05/25/2019 sterile water irrigation 1 05/25/2019 tranexamic acid (CYKLOKAPRON ) 1,000 mg/10 mL (100 mg/mL) solution 2,000 mg 1 05/25/2019 vancomycin 1500 mg/515 mL in sodium chloride 0.9% (premix) 1,500 mg 2 05/25/2019 warfarin (COUMADIN) tablet 2 mg 1 0 ramelteon (ROZEREM) tablet 8 mg 1 0 acetaminophen (TYLENOL) tablet 1,000 mg 1 0 05/22/2019 amLODIPine (NORVASC) tablet 5 mg 1 05/22/19 20 dextrose (D10W) 10% bolus 250 mL 1 05/22/19 dextrose (GLUTOSE) 40 % gel 15 g 1 05/22/19 20 dextrose 5% and sodium chlor nuno 0.45% [...] 0.4 mg/mL injection 0.04-0.4 mg 1 05/22/2019 carvediloL (COREG) tablet 25 mg [...] 05/21/2019 documented in this encounter Care Teams Bakery Worker Relationship Specialty Start Date End Date Wilber Cleaning Jr., MD [address] [place] [id number] PCP - General 07/03/16 07/15/20 documented as of this encounter
--- OUTSIDE RECORDS SUMMARY | 2024-03-13 01:17 | XMS_ITS | Encounter Summary ---
Author Organization [facility] Healthcare Address [address] [place] [address] Care Team Providers Care Big Data Developer Name Role Phone Hermila Calhoun MD, Wilber Martinez Primary Care Provider Encounter Details Date Type Department Care Team (Latest Contact Info) Description 05/21/2019 7:35 PM SHIFT PRODUCTION ASSOCIATE - 05/21/2019 11:59 PM SHIFT PRODUCTION ASSOCIATE Hospital Encounter [facility] [address] [place] [id number] Discharge Disposition: Discharge to home or self care Social History Tobacco Use Types Packs/Day Years Used Date Smoking Tobacco: Never Smokeless Tobacco: Never Comments Unknown Sex and Gender Information Value Date Recorded Sex Assigned at Not on file Legal Sex Female 4:20 AM SHIFT PRODUCTION ASSOCIATE Gender Identity Not on file Sexual Orientation [...] 06/05/2019 hydroCHLOROthiaz nuno (HYDRODIURIL) 25 mg tablet TAKE ONE TABLET BY MOUTH ONCE DAILY 90 tablet 1 11/16/2018 05/23/2019 levothyroxine (SYNTHROID) 50 mcg tablet Take 25 mcg by mouth 2 (two) times a day 1 03/24/2018 10/29/2020 losartan (COZAAR) 100 mg tablet TAKE ONE TABLET BY MOUTH ONCE DAILY 90 tablet 3 01/03/2019 06/05/2019 lovastatin (MEVACOR) 10 mg tablet Take 10 mg by mouth nightly 05/27/2019 lovastatin (MEVACOR) 10 mg tablet TAKE ONE [...] 60 tablet 1 05/27/2019 06/09/2019 warfarin (COUMADIN) 1 mg tablet 1-2 tablets daily, only when directed, based on INR results 180 tablet 3 04/18/2019 05/27/2019 warfarin (COUMADIN) 2 mg tablet TAKE 1-2 [...] Procedure Name Priority Date/Time Associated Diagnosis Comments NEURO CT MR OUTSIDE CONSULT ED 05/21/2019 8:41 PM SHIFT PRODUCTION ASSOCIATE documented in this encounter Results * Neuro CT MR Outside Consult (05/21/2019 8:41 PM SHIFT PRODUCTION ASSOCIATE) Anatomical Region Laterality Modality N/A Computed Tomogra phy 05/21/2019 8:49 PM SHIFT PRODUCTION ASSOCIATE Impressions 05/22/2019 9:46 AM CDT 1. ??No [...] images may or may not represent the [place] source data set and thus may contain [...] IMAGING STUDY STUDY INITIALLY PERFORMED: 05/21/[address] [facility]. TYPE OF STUDY: Multiple CT images of [...] IMAGING STUDY STUDY INITIALLY PERFORMED: 05/21/[address] [facility]. TYPE OF STUDY: Multiple CT images of [...] images may or may not represent the [place] source data set and thus may contain changes that may lower the accuracy of this second-opinion interpretation. Dictated by: Cyndie Loyd M.D. The radiology attending physician has personally reviewed this study, and had reviewed and/or edited this written report and agrees with it. Electronically signed by: Isreal Izaguirre M.D, PHD Alessandro Nahun Malone MD IMG CT PROCEDURES Final Result documented in this encounter Visit Diagnoses Not on filedocumented in this encounter Care Teams Big Data Developer Relationship Specialty Start Date End Date Wilber Cleaning Jr., MD [address] [place] [address] PCP - General 07/03/16 07/15/20 documented as of this encounter
--- OUTSIDE RECORDS SUMMARY | 2024-03-13 01:17 | XMS_ITS | Encounter Summary ---
Author Organization [facility] Address [address] [place] [address] Phone Care Team Providers Care Hub Borer Name Role Phone Hermila Calhoun MD, Wilber Martinez Primary Care Provider Reason for Referral * Cardiology (Routine) - Closed Specialty Diagnoses / Procedures Referred By Contac t Referred To Contact Diagnoses AF (paroxysmal atrial fibrillation) (CMS/HCC) (HCC) Dyspnea, unspecified type Procedures Transthoracic Echo Complete W Doppler/CF Cathleen Fish MD Phone: tel: fax: [facility] Referral ID Status Reason Start Date Expiration Date Visits Re quested Visits Authorized [id number] Closed 12/27/2018 07/07/2020 1 1 Reason for Visit * Reason Comments Follow-up * Cardiology (Routine) - Closed Specialty Diagnoses / Procedures Referred By Contac t Referred To Contact Cardiology Diagnoses 6m per LS Procedures NEW TO PROVIDER Catarina Huerta MD Phone: tel: fax: Cathleen Fish MD [address] [facility] [address] [place] [address] Phone: tel: fax: Referral ID Status Reason Start Date Expiration Date Visits Re quested Visits Authorized [id number] Closed 12/17/2018 03/15/2019 5 5 Encounter Details Date Type Department Care Team (Late st Contact Info) Description 12/27/2018 9:30 AM CDT Office Visit [facility] Cardiology [address] [place] [address] Medical Office Building [address] [place] [address] Cathleen Fish MD [address] [facility] [address] [place] [address] [facility] [place] [address] AF (paroxysmal atrial fibrillation) (CMS/HCC) (Primary Dx); Essential hypertension; Lower extremity edema; Dyspnea, unspecified type Social History Tobacco Use Types Packs/Day Years Used Date Smoking Tobacco: Never Smokeless Tobacco: Never Comments Unknown Sex and Gender Information Value Date Recorded Sex Assigned at Not on file 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 Gender Identity Not on file Sexual Orientation Not on file documented as of this encounter Last Filed Vital Signs Vital Sign Reading Time Taken Comments Blood Pressure 144/104 12/27/2018 9:41 AM CDT Pulse 88 12/27/2018 9:41 AM CDT Temperature - - Respiratory Rate - - Oxygen Saturation 96% 12/27/2018 9:41 AM CDT Inhaled Oxygen Concentration - - Weight 92.1 kg (203 lb) 12/27/2018 9:41 AM CDT Height 157.5 cm (5' 2 ) 12/27/2018 9:41 AM CDT Body Mass Index 37.13 12/27/2018 9:41 AM CDT documented in this encounter Patient Instructions * Patient Instructions* Cathleen Fish MD - 12/27/2018 9:30 AM CDT Stop sotalol Increase coreg to 25 mg twice daily Schedule echocardiogram Take furosemide 20 mg daily x 3 days with 20 meq of potassium Once we have your echocardiogram, we will talk about other drugs that can keep you in a normal rhythm Return to clinic in 3 months documented in this encounter Ordered Prescriptions Prescription Sig Dispense Quantity Refills Last Filled Start Date End Date potassium chloride ER (KLOR-CON) 20 mEq CR tablet Take 1 tablet (20 mEq total) by mouth daily 30 tablet 11 12/27/2018 06/13/2019 furosemide (LASIX) 20 mg tablet Take 1 tablet (20 mg total) by mouth daily 30 tablet 11 12/27/2018 06/05/2019 carvedilol (COREG) 25 mg tablet Take 1 tablet (25 mg total) by mouth 2 (two) times a day with meals 60 tablet 11 12/27/2018 06/13/2019 documented in this encounter Progress Notes * Cathleen Fish MD - 12/27/2018 9:30 AM CDT Provider: Cathleen Fish MD Patient Name: Prema Pearce : 1940 Date of Service: 12/27/2018 Referring: Deanna PROBLEM LIST: 1. Atrial fibrillation ?? DCCV and sotalol intiation ~ 2009 2. Hypertension 3. Obstructive sleep apnea, on CPAP 4. Hypothyroidism Dear Dr. Cleaning, Today I had the pleasure [facility]. She is has not been feeling well for the past year, especially the last 6 months. She reports fatigue, dyspnea with exertion, and ankle swelling. She enjoys gardening, but had to cut back due to dyspnea. She monitor her heart rate and states it is sometimes as high as 120's. She denies palpitations. She continues to take sotalol and coreg but does not feel as if they are working. No lightheadedness or syncope. She is also under a great deal of stress. Her was recently diagnosed with metastatic prostate cancer. PAST MEDICAL HISTORY Past Medical History: Diagnosis Date ??? Atrial fibrillation (CMS/HCC) ??? Dyslipidemia ??? Hypertension ??? Hypothyroidism ??? Mitral regurgitation MEDICATIONS Outpatient Encounter Medications as of 12/27/2018 Medication Sig Dispense Refill ??? ALPRAZolam (XANAX) [...] Take 60 mg by mouth daily ??? hydroCHLOROthiazide (HYDRODIURIL) 25 mg tablet TAKE ONE TABLET BY MOUTH ONCE DAILY 90 tablet 1 ??? levothyroxine (SYNTHROID, LEVOTHROID) 25 mcg tablet Take 25 mcg by mouth daily 1 ??? losartan (COZAAR) 100 mg tablet TAKE ONE TABLET BY MOUTH ONCE DAILY 90 tablet 1 ??? lovastatin (MEVACOR) 10 mg tablet Take 10 mg by mouth nightly ??? metFORMIN (GLUCOPHAGE) 1,000 mg tablet Take one tablet once daily at bedtime ??? multivit,iron,minerals/lutein (CENTRUM SILVER ULTRA WOMEN'S ORAL) Take by mouth daily ??? warfarin (COUMADIN) 1 mg tablet TAKE 1 TABLET BY MOUTH EVERY DAY (Patient taking differently: 1.5 mg 2 (two) times a week mon/thu) 90 tablet 0 ??? warfarin (COUMADIN) 2 mg tablet TAKE 1-2 TABLETS BY MOUTH EVERY DAY DIRECTED (Patient takingdifferently: TAKE 1 TABLET BY MOUTH EVERY DAY DIRECTED) 180 tablet 1 ??? zolpidem (AMBIEN) 5 mg tablet Take 5 mg by mouth nightly. at bedtime. 1 ??? [DISCONTINUED] carvedilol (COREG) 12.5 mg tablet Take 1 tablet (12.5 mg total) by mouth 2 (two)times a day with meals 60 tablet 11 ??? [DISCONTINUED] sotalol (BETAPACE) 80 mg tablet take one tablet by mouth twice daily ??? furosemide (LASIX) 20 mg tablet Take 1 tablet (20 mg total) by mouth daily 30 tablet 11 ??? potassium chloride ER (KLOR-CON) 20 mEq CR tablet Take 1 tablet (20 mEq total) by mouth daily 30 tablet 11 ??? [DISCONTINUED] atorvastatin (LIPITOR) 40 mg tablet Take 40 mg by mouth daily 1 No facility-administered encounter medications on file as of 12/27/2018. ALLERGY Prasanth inhibitors; Citalopram; and Lisinopril FAMILY HISTORY Family History Problem Relation Age [...] of diabetes mellitus - (Added by Conv) SOCIAL HISTORY Social History Socioeconomic History ??? Marital status: Spouse name: None ??? Number of children: None ??? Years of education: None ??? Highest education level: None Occupational History ??? None Social Needs ??? Financial resource strain: None ??? Food insecurity: Worry: None Inability: None ??? Transportation needs: Medical: None Non-medical: None Tobacco Use ??? Smoking status: Never Smoker ??? Smokeless tobacco: Never Used Substance and Sexual Activity ??? Alcohol use: None ??? Drug use: None ??? Sexual activity: None Lifestyle ??? Physical activity: Days per week: None Minutes per session: None ??? Stress: None Relationships ??? Social connections: Talks on phone: None Gets together: None Attends gnosticism service: None Active member of club or organization: None Attends meetings of clubs or organizations: None Relationship status: None ??? Intimate partner violence: Fear of current or ex partner: None Emotionally abused: None Physically abused: None Forced sexual activity: None Other Topics Concern ??? None Social History Narrative ??? None REVIEW OF SYSTEMS: General: No fever, chills, [...] in the HPI. PHYSICAL EXAM: BP (!) 144/104 (BP Location: Right arm, Patient Position: Sitting) Pulse 88 Ht 157.5 cm (5' 2 ) Wt 92.1 kg (203 lb) SpO2 96% BMI 37.13 kg/m?? Vital signs, weight, and intake/output reviewed. Gen: well developed, well nourished, no acute distress HEENT: moist mucus membranes, positive jugular venous distension, no carotid bruits Chest: Lungs clear to auscultation bilaterally Cardiac: irregular, irregular, 2/6 murmur at the RUSB with diminished heart sounds Abdomen: Positive bowel sounds, soft, nontender, nondistended, no hepatosplenomegaly Extremities: Warm and well-perfused, positive pulses, no cyanosis, clubbing, ankle edema Skin: No rashes Neurologic: nonfocal exam Psychiatric: alert and oriented DIAGNOSTIC DATA: Echocardiogram 2009. Normal LV and RV size and systolic function. Borderline LVH. Pseudonormal diastolic dysfunction. Mild aortic sclerosis with normal proximal aorta. Mod LAE and mild-to-mod MR. Mild TR/MN with est PA pressure 41/9 mm Hg and normal IVC. ASSESSMENT & PLAN: 1. Atrial fibrillation. She is progressing from paroxysmal to persistent. Sotalol is no longer effective in maintaining sinus rhythm. She also reports symptoms of fatigue and dyspnea which could be due to atrial fibrillation; however, this is difficult to discern denied symptoms from her atrial fibr illation at her last appointment. Her previous symptoms were palpitations and a sensation of fullness in her throat. At this time, I will stop her sotalol and increase her coreg to 25 mg BID. We willalso obtain an echocardiogram to assess for LV dysfunction, pulmonary hypertension and valvular heart disease.. Pending, the results of her echocardiogram, we will discuss initiation of another antiar rhythmic and possible cardioversion vs a rate control strategy. 2. Mitral regurgitation, moderate on echocardiogram in 2010. We will repeat an echocardiogram. Given her heart failure symptoms and evidence of volume overload on exam, I started her on furosemide 20mg daily with potassium supplementation. 3. Hypertension. Increased Coreg to 25 mg BID. Continue amlodipine and hydrochlorothiazide. Will check a BMP in 1 week given increased risk of hypokalemia in the setting of both loop and thiazide diuretics. Thank you very much for letting me participate in the care of this patient. I will plan to see her back in follow up in 3 months. Please feel free to call with any questions or concerns. Sincerely, Cathleen Fish MD documented in this encounter Miscellaneous Notes * Addendum Note - Mackenzie Bright RN - 12/27/2018 9:30 AM CDTAddended by: MACKENZIE BRIGHT on: 01/06/2019 09:26 AM Modules accepted: Orders documented in this encounter Plan of Treatment Scheduled Orders Name Type Priority Associated Diagnoses Orde r Schedule Basic metabolic panel Lab Routine AF (paroxysmal atrial fibrillation) (CMS/HCC) Expected: 01/03/2019, Expires: 12/28/2019 documented as of this encounter Results * TRANSTHORACIC ECHO (TTE) COMPLETE W DOPPLER/CF W CONTRAST (12/31/2018 10:33 AM CDT) Anatomical Region Laterality Modality Ultrasound 12/31/2018 9:30 AM CDT Narrative 01/03/2019 7:45 AM CDT Patient name: Prema Pearce Date of test: 12/31/2018 Type of test: TTE w/Doppler [facility] #: [id number] Date of : 1940 (F) Quality Assurance Calibrator: Maryann Kamara RDMS, RVT, RDCS Referring Physician: CATHLEEN FISH MD Contrast Agent: 1.1 ml Optison Administered, (1.9 ml wasted). Contrast Administered by: Nan Mejia RN Supervised/Interpreted by: Nathen Ortiz MD Diagnosis: Location: [facility] Reason for test: Atrial Fibrillation MV Structure: [...] 2=Hypo 3=Akinetic 4=Dyskin./Aneurysm 0=Not visualized) Parasternal [place]:MAS=2 BAS=2 MP=2 BP=2 Parasternal [place]:MAS=2 MS=2 SD=2 MP=2 ML=2 MA=2 Apical 4 Chambers:=2 MS=2 BS=2 BL=2 SD=2 AL=2 Apical 2 Chambers:AI=2 SD=2 BI=2 BA=2 MA=2 AA=2 LV Global Longitudinal Strain: -13.5% ??(Normal <-19%) RV Global Longitudinal Strain: LV Function: Mild Global reduction in LV Ejection Fraction (EF=41-53%) RV Function: Normal Septal Motion: Normal Pericardial Effusion: none seen Atrial Septum: Normal DOPPLER/COLOR FOLOW DOPPLER RESULTS: Diastolic Function: Grade I, altered relax. w/N. LA pres. Tricuspid Valve: mild TV regurgitation Pulmonic Valve: Mild MN AV Regurgitation: No AR seen AV Stenosis: [...] , no MS, mild TV regurgitation, Mild MN. Diastolic function: Grade I, altered relax. w/N. [...] MD By signing this report, the attending insemination worker certifies that he or she has personally supervised and interpreted the echocardiogram and has reviewed and or edited and agrees with the written comments contained within the report. Procedure Note Nathen Ortiz MD - 01/03/2019 Patient name: Prema Pearce Date of test: 12/31/2018 Type of test: TTE w/[facility] #: [id number] Date of : 1940 (F) Quality Assurance Calibrator: Maryann Kamara, RDMS, RVT, RDCS Referring Physician: CATHLEEN FISH MD Contrast Agent: 1.1 ml Optison Administered, (1.9 ml wasted). Contrast Administered by: Nan Mejia RN Supervised/Interpreted by: Nathen Ortiz MD Diagnosis: Location: [facility] Reason for test: Atrial Fibrillation MV Structure: [...] 2=Hypo 3=Akinetic 4=Dyskin./Aneurysm 0=Not visualized) Parasternal [place]:MAS=2 BAS=2 MP=2 BP=2 Parasternal [place]:MAS=2 MS=2 SD=2 MP=2 ML=2 MA=2 Apical 4 Chambers:=2 MS=2 BS=2 BL=2 SD=2 AL=2 Apical 2 Chambers:AI=2 SD=2 BI=2 BA=2 MA=2 AA=2 LV Global Longitudinal Strain: -13.5% (Normal <-19%) RV Global Longitudinal Strain: LV Function: Mild Global reduction in LV Ejection Fraction (EF=41-53%) RV Function: Normal Septal Motion: Normal Pericardial Effusion: none seen Atrial Septum: Normal DOPPLER/COLOR FOLOW DOPPLER RESULTS: Diastolic Function: Grade I, altered relax. w/N. LA pres. Tricuspid Valve: mild TV regurgitation Pulmonic Valve: Mild MN AV Regurgitation: No AR seen AV Stenosis: [...] , no MS, mild TV regurgitation, Mild MN. Diastolic function: Grade I, altered relax. w/N. [...] MD By signing this report, the attending insemination worker certifies that he or she has personally supervised and interpreted the echocardiogram and has reviewed and or edited and agrees with the written comments contained within the report. Result [facility] Cathleen Mccormick MD CV ECHO PROCEDUR ES Final Result documented in this encounter Visit Diagnoses Diagnosis AF (paroxysmal atrial fibrillation) ([facility]) ([facility])- Primary Atrial fibrillation Essential hypertension Unspecified essential hypertension Lower extremity edema Edema Dyspnea, unspecified type AF (paroxysmal atrial fibrillation) ([facility]) ([facility]) Atrial fibrillation Dyspnea, unspecified type documented in this encounter Discontinued Medications Medication Sig Discontinue Reason Start Date End Da te atorvastatin (LIPITOR) 40 mg tablet Take 40 mg by mouth daily Patient Discharge 03/11/2018 12/27/2018 sotalol (BETAPACE) 80 mg tablet take one tablet by mouth twice daily Alternate therapy 03/06/2011 12/27/2018 carvedilol (COREG) 12.5 mg tablet Take 1 tablet (12.5 mg total) by mouth 2 (two) times a day with meals 08/23/2018 12/27/2018 documented as of this encounter Historical Medications * This list may reflect changes made after this encounter. cholecalciferol, vitamin D3, (VITAMIN D3 ORAL) Take 400 Units by mouth daily 01/13/2020 multivit,iron,min erals/lutein (CENTRUM SILVER ULTRA WOMEN'S ORAL) Take 1 tablet by mouth daily 09/11/2020 lovastatin (MEVACOR) 10 mg tablet Take 10 mg by mouth nightly 05/27/2019 added in this encounter Care Teams Hub Borer Relationship Specialty Start Date End Date Wilber Cleaning Jr., MD [address] [place] [address] PCP - General 07/03/16 07/15/20 documented as of this encounter
--- OUTSIDE RECORDS SUMMARY | 2024-03-13 01:17 | XMS_ITS | Encounter Summary ---
Author Organization [facility] Address [address] [place] [address] Phone Care Team Providers Care Table Games Supervisor Name Role Phone Hermila Calhoun MD, Wilber Martinez Primary Care Provider Encounter Details Date Type Department Care Team (Latest Contact Info) Description 11/30/2018 Anticoagulation Telephone Call [facility] Cardiology [address] [facility] Medical [address] [place] [address] Catarina Huerta MD [address] [facility] [address] [place] [address] Persistent atrial fibrillation (CMS/HCC) Social History Tobacco Use Types Packs/Day Years Used Date Smoking Tobacco: Never Smokeless Tobacco: Never Comments Unknown Sex and Gender Information Value Date Recorded Sex Assigned at Not on file 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 Pt verbalized understanding to instructions documented in this encounter Plan of Treatment Not on file documented as of this encounter Visit Diagnoses Diagnosis Persistent atrial fibrillation (HCC) Atrial fibrillation documented in this encounter Care Teams Table Games Supervisor Relationship Specialty Start Date End Date Wilber Cleaning Jr., MD [address] [place] [address] PCP - General 07/03/16 07/15/20 documented as of this encounter
--- OUTSIDE RECORDS SUMMARY | 2024-03-13 01:17 | XMS_ITS | Encounter Summary ---
Author Organization [facility] Address [address] [place] [address] Phone Care Team Providers Care Subwarehouse Supervisor Name Role Phone Hermila Calhoun MD, Wilber Martinez Primary Care Provider Encounter Details Date Type Department Care Team (Latest Contact Info) Description 02/18/2019 Anticoagulation Telephone Call [facility] Cardiology [address] [facility] Advanced Medicine 8th [place] [address] [place] [address] Cathleen Walker MD [address] [facility] [address] [place], [place] [id number] Atrial fibrillation, unspecified type (CMS/HCC) Social History Tobacco Use Types Packs/Day Years Used Date Smoking Tobacco: Never Smokeless Tobacco: Never Comments Unknown Sex and Gender Information Value Date Recorded Sex Assigned at Not on file 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 Gender Identity Not on file Sexual Orientation Not on file documented as of this encounter Miscellaneous Notes * Addendum Note - Juan Manuel Fragoso RMA - 02/18/2019 10:17 AM CSTAddended by: JUAN MANUEL FRAGOSO on: 02/18/2019 10:17 AM Modules accepted: Orders AND MOLD FINISHER documented in this encounter Plan of Treatment Scheduled Orders Name Type Priority Associated Diagnoses Orde r Schedule Protime-INR Lab Routine Atrial fibrillation, unspecified type (CMS/HCC) Expected: 03/07/2019 (Approximate), Expires: 02/19/2020 documented as of this encounter Visit Diagnoses Diagnosis Atrial fibrillation, unspecified type (HCC) documented in this encounter Care Teams Subwarehouse Supervisor Relationship Specialty Start Date End Date Wilber Cleaning Jr., MD [address] [place] [address] PCP - General 07/03/16 07/15/20 documented as of this encounter
--- OUTSIDE RECORDS SUMMARY | 2024-03-13 01:17 | XMS_ITS | Encounter Summary ---
Author Organization [facility] Address [address] [place] [address] Phone Care Team Providers Care Girls Tennis Coach Name Role Phone Hermila Calhoun MD, Wilber Martinez Primary Care Provider Encounter Details Date Type Department Care Team (Latest Contact Info) Description 11/12/2018 Anticoagulation Telephone Call [facility] Cardiology [address] 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 She will be going OOT 11/17 thru 11/24. I told her to get INR /3 * Telephone Encounter - Apolonia Sinha RN - 11/12/2018 8:13 AM CDT 1mg next 5 days, then 2mg We recheck 11/17 thanks documented in this encounter Plan of Treatment Not on file documented as of this encounter Visit Diagnoses Diagnosis Persistent atrial fibrillation (HCC) Atrial fibrillation documented in this encounter Care Teams Girls Tennis Coach Relationship Specialty Start Date End Date iWlber Cleaning Jr., MD [address] [place] [address] PCP - General 07/03/16 07/15/20 documented as of this encounter
--- OUTSIDE RECORDS SUMMARY | 2024-03-13 01:17 | XMS_ITS | Encounter Summary ---
Author Organization 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 Gender Identity Not on file Sexual Orientation Not on file documented as of this encounter Plan of Treatment Not on file documented as of this encounter Procedures Procedure Name Priority Date/Time Associated Diagnosis Comments SCAN - LABS 03/07/2019 documented in this encounter Results * SCAN - LABS (03/07/2019) us Provider Scanning Final Result documented in this encounter Visit Diagnoses Not on filedocumented in this encounter Care Teams Gas Station Supervisor Relationship Specialty Start Date End Date Wilber Cleaning Jr., MD [address] [place] [address] PCP - General 07/03/16 07/15/20 documented as of this encounter
--- OUTSIDE RECORDS SUMMARY | 2024-03-13 01:17 | XMS_ITS | Encounter Summary ---
Author Organization [facility] Address [address] [place] [address] Phone Care Team Providers Care Hotshot Superintendent Name Role Phone Hermila Calhoun MD, Wilber Martinez Primary Care Provider Encounter Details Date Type Department Care Team (Latest Contact Info) Description 06/18/2018 Anticoagulation Telephone Call [facility] Cardiology [address] [facility] Medical Office [address] [place] [address] Catarina Huerta MD [address] [facility] [address] [place] [address] Atrial fibrillation, unspecified type (CMS/HCC) Social History Tobacco Use Types Packs/Day Years Used Date Smoking Tobacco: Never Smokeless Tobacco: Never Comments Unknown Sex and Gender Information Value Date Recorded Sex Assigned at Not on file 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 * Telephone Encounter - Margarita Méndez RN - 06/18/2018 10:06 AM CDT No change, recheck 2 weeks. jf documented in this encounter Plan of Treatment Not on file documented as of this encounter Visit Diagnoses Diagnosis Atrial fibrillation, unspecified type (HCC) documented in this encounter Care Teams Hotshot Superintendent Relationship Specialty Start Date End Date Wilber Cleaning Jr., MD [facility] [place] [address] PCP - General 07/03/16 07/15/20 documented as of this encounter
--- OUTSIDE RECORDS SUMMARY | 2024-03-13 01:17 | XMS_ITS | Encounter Summary ---
Author Organization [facility] Address [address] [place] [address] Phone Care Team Providers Care Egg Sorter Name Role Phone Hermila Calhoun MD, Wilber Martinez Primary Care Provider Encounter Details Date Type Department Care Team (Latest Contact Info) Description 10/01/2018 Anticoagulation Telephone Call [facility] Cardiology [address] [facility] Medical Office Building [address] [place] [address] Catarina Huerta MD [address] [facility] [address] [place] [address] Persistent atrial fibrillation (CMS/HCC) Social History Tobacco Use Types Packs/Day Years Used Date Smoking Tobacco: Never Smokeless Tobacco: Never Comments Unknown Sex and Gender Information Value Date Recorded Sex Assigned at Not on file 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 * Telephone Encounter - Apolonia Sinha RN - 10/01/2018 7:59 AM CDT No change recheck 1 month thanks documented in this encounter Plan of Treatment Not on file documented as of this encounter Visit Diagnoses Diagnosis Persistent atrial fibrillation (HCC) Atrial fibrillation documented in this encounter Care Teams Egg Sorter Relationship Specialty Start Date End Date Wilber Cleaning Jr., MD [address] [place] [address] PCP - General 07/03/16 07/15/20 documented as of this encounter
--- OUTSIDE RECORDS SUMMARY | 2024-03-13 01:17 | XMS_ITS | Encounter Summary ---
Author Organization [facility] Address [address] [place] [address] Phone Care Team Providers Care Wedger Machine Name Role Phone Hermila Calhoun MD, Wilber Martinez Primary Care Provider Encounter Details Date Type Department Care Team (Latest Contact Info) Description 06/01/2018 Anticoagulation Telephone Call [facility] Cardiology [address] 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 * Telephone Encounter - Apolonia Sinha RN - 06/01/2018 8:57 AM CDT Extra 2mg this week () then resume as before Recheck 1 week thanks documented in this encounter Plan of Treatment Not on file documented as of this encounter Visit Diagnoses Diagnosis Atrial fibrillation, unspecified type (HCC) documented in this encounter Care Teams Wedger Machine Relationship Specialty Start Date End Date Wilber Cleaning Jr., MD [address] [place] [address] PCP - General 07/03/16 07/15/20 documented as of this encounter
--- OUTSIDE RECORDS SUMMARY | 2024-03-13 01:17 | XMS_ITS | Encounter Summary ---
Author Organization [facility] Address [address] [place] [address] Care Team Providers Care Rn Endoscopy Name Role Phone Hermila Calhoun MD, Wilber Martinez Primary Care Provider Encounter Details Date Type Department Care Team (Late st Contact Info) Description 08/23/2018 2:30 PM CDT Lab [facility] [address] [place] [address] Catarina Huerta MD [address] [facility] [address] [place] [address] Paroxysmal atrial fibrillation (CMS/HCC) Discharge Disposition: Discharge to home or self care Social History Tobacco Use Types Packs/Day Years Used Date Smoking Tobacco: Never Smokeless Tobacco: Never Comments Unknown Sex and Gender Information Value Date Recorded Sex Assigned at Not on file 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 Gender Identity Not on file Sexual Orientation Not on file documented as of this encounter Discharge Disposition Disposition Code Departure Means Destination Discharge to home or self care documented in this encounter Plan of Treatment Not on file documented as of this encounter Procedures Procedure Name Priority Date/Time Associated Diagnosis Comments EGFR Routine 08/23/2018 3:05 PM CDT Paroxysmal atrial fibrillation (CMS/HCC) BASIC METABOLIC PANEL Routine 08/23/2018 3:05 PM CDT Paroxysmal atrial fibrillation (CMS/HCC) documented in this encounter Results * eGFR (08/23/2018 3:05 PM CDT) eGFR >60 mL/min/1.7 3 m2 MINDI MARTINEZ Comment: Interpretive Data Reference Interval Normal ?>/= 90 mL/min/1.73m2 Mildly decreased* ? 60 - 89 mL/min/1.73m2 Mildly to moderately decreased ?45 - 59 mL/min/1.73m2 Moderately to severely decreased ??30 - 44 mL/min/1.73m2 Severely decreased ?15 - 29 mL/min/1.73m2 Kidney Failure ?< 15 ??mL/min/1.73m2 *Relative to young adult level If -Wallisian multiply value by 1.16. Estimated glomerular filtration rate is determined by the CKD-EPI equation recommended by the National Kidney Foundation (KDIGO 2012 Clinical Practice Guideline for the Evaluation and Management of Chronic Kidney Disease. Kidney Intnl Suppl Mar 2012;3:1). The CKD-EPI equation should not be used for patients with unstable renal function and has not been validated in children and those over 70. Current interpretive data was last reviewed 2015. Blood specimen (specimen) 08/23/2018 3:05 PM CDT 08/23/2018 3:53 PM CDT Narrative MINDI MARTINEZ - 08/23/2018 5:06 PM CDT us Catarina Huerta MD LAB BLOOD ORDERABLES Final R esult [facility] [address] [facility]. [place] [address] * (ABNORMAL) Basic metabolic panel (08/23/2018 3:05 PM CDT) Sodium 138 135 - 145 mmol/L CERNER BJ[facility] Potassium, pl 3.5 3.3 - 4.9 mmol/L [facility] Chloride 100 97 - 110 mmol/L [facility] CO2 28 22 - 32 mmol/L [facility] Anion gap 10 2 - 15 mmol/L [facility] BUN 14 8 - 25 mg/dL [facility] Creatinine 0.50(L) 0.60 - 1.10 mg/dL [facility] Glucose 112 70 - 199 mg/dL [facility] Comment: Interpretive Data Fasting glucose >/= 126 [...] interpretive data was last revised 2017. Calcium 9.7 8.5 - 10.3 mg/dL [facility] Blood specimen (specimen) 08/23/2018 3:05 PM CDT 08/23/2018 3:53 PM CDT Narrative [facility] - 08/23/2018 5:05 PM CDT Catarina Huerta MD LAB BLOOD ORDERABLES Final R esult MINDI SMARTCH [address] [facility] [place] [address] documented in this encounter Visit Diagnoses Diagnosis Paroxysmal atrial fibrillation (CMS/HCC) (HCC) Atrial fibrillation documented in this encounter Care Teams Rn Endoscopy Relationship Specialty Start Date End Date Wilber Cleaning Jr., MD [address] [place] [address] PCP - General 07/03/16 07/15/20 documented as of this encounter
--- OUTSIDE RECORDS SUMMARY | 2024-03-13 01:17 | XMS_ITS | Encounter Summary ---
Author Organization [facility] Address [address] [place] [address] Phone Care Team Providers Care Registered Nurse Bone Marrow Transplant Name Role Phone Hermila Calhoun MD, Oscar A. 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 Gender Identity Not on file Sexual Orientation Not on file documented as of this encounter Plan of Treatment Not on file documented as of this encounter Procedures Procedure Name Priority Date/Time Associated Diagnosis Comments SCAN - LABS 05/06/2018 documented in this encounter Results * SCAN - LABS (05/06/2018) Margarita Méndez RN Final Res ult documented in this encounter Visit Diagnoses Not on filedocumented in this encounter Care Teams Registered Nurse Bone Marrow Transplant Relationship Specialty Start Date End Date Wilber Cleaning Jr., MD [address] [place] [address] PCP - General 07/03/16 07/15/20 documented as of this encounter
--- OUTSIDE RECORDS SUMMARY | 2024-03-13 01:17 | XMS_ITS | Encounter Summary ---
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 Aislinn Goldsmith, CHOIR MEMBER 06/09/2019 06/09/2019 06/09/2019 4:20 PM C DT documented as of this encounter Care Teams Manager Contract Relationship Specialty Start Date End Date Wilber Cleaning Jr., MD [address] [place] [address] PCP - General 07/03/16 07/15/20 Ryann Galdamez PA [address] [place] [address] PCP - General Designated Broker 07/16/20 04/01/21 documented as of this encounter
--- OUTSIDE RECORDS SUMMARY | 2024-03-13 01:17 | XMS_ITS | Encounter Summary ---
Author Organization [facility] Address [address] [place] [address] Phone Care Team Providers Care Butter Grader Name Role Phone Hermila Calhoun MD, Wilber Martinez Primary Care Provider Encounter Details Date Type Department Care Team (Late st Contact Info) Description 06/02/2018 Telephone [facility] Cardiology [facility] Medical Office Building [address] [place] [address] Suzie Gonzales Social History Tobacco Use Types Packs/Day Years Used Date Smoking Tobacco: Never Smokeless Tobacco: Never Comments Unknown Sex and Gender Information Value Date Recorded Sex Assigned at Not on file 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 * Telephone Encounter - Luis Lucas MA - 07/26/2018 9:54 AM CDT Patient scheduled for 12/27/18 at 9:[address] Walker. documented in this encounter Plan of Treatment Not on file documented as of this encounter Visit Diagnoses Not on filedocumented in this encounter Care Teams Butter Grader Relationship Specialty Start Date End Date Wilber Cleaning Jr., MD [address] [place] [address] PCP - General 07/03/16 07/15/20 documented as of this encounter
--- OUTSIDE RECORDS SUMMARY | 2024-03-13 01:17 | XMS_ITS | Encounter Summary ---
Author Organization [facility] Address [address] [place] [address] Phone Care Team Providers Care Distribution Systems Serviceperson Name Role Phone Hermila Calhoun MD, Oscar A. Primary Care Provider Reason for Referral * (Routine) - Closed Specialty Diagnoses / Procedures Referred By Contac t Referred To Contact Diagnoses Paroxysmal atrial fibrillation (CMS/HCC) (HCC) Procedures ECG 12 lead Catarina Huerta MD Phone: tel: fax: [facility] Referral ID Status Reason Start Date Expiration Date Visits Re quested Visits Authorized [id number] Closed 08/23/2018 03/03/2020 1 1 Reason for Visit * Reason Comments Follow-up * Cardiology (Routine) - Closed Specialty Diagnoses / Procedures Referred By Contac t Referred To Contact Cardiology Diagnoses BP Procedures RETURN India Cleaning Jr., MD Phone: tel: fax: Catarina Huerta MD [address] [facility] [address] [place] [address] Phone: tel: fax: Referral ID Status Reason Start Date Expiration Date Visits Re quested Visits Authorized [id number] Closed 08/17/2018 12/13/2018 5 5 Encounter Details Date Type Department Care Team (Latest Contact Info) Description 08/23/2018 1:30 PM CDT Office Visit [facility] Cardiology [address] [facility] Medical Office Building [address] [place] [address] Catarina Huerta MD [facility] [address] [place] [address] Essential hypertension (Primary Dx); Paroxysmal atrial fibrillation (CMS/HCC); Hyperlipidemia, unspecified hyperlipidemia type Social History Tobacco Use Types Packs/Day Years Used Date Smoking Tobacco: Never Smokeless Tobacco: Never Comments Unknown Sex and Gender Information Value Date Recorded Sex Assigned at Not on file 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 Gender Identity Not on file Sexual Orientation Not on file documented as of this encounter Last Filed Vital Signs Vital Sign Reading Time Taken Comments Blood Pressure 148/104 08/23/2018 1:50 PM CDT Pulse 88 08/23/2018 1:50 PM CDT Temperature - - Respiratory Rate - - Oxygen Saturation 60% 08/23/2018 1:50 PM CDT Inhaled Oxygen Concentration - - Weight 91.3 kg (201 lb 4 oz) 08/23/2018 1:50 PM CDT Height 157.5 cm (5' 2 ) 08/23/2018 1:50 PM CDT Body Mass Index 36.81 08/23/2018 1:50 PM CDT documented in this encounter Patient Instructions * Patient Instructions* Catarina Huerta MD - 08/23/2018 1:30 PM CDT Start carvedilol 12.5mg twice daily. Keep track of the blood pressure at home. Send me thyroid levels when available. Return the week of September 06. documented in this encounter Ordered Prescriptions Prescription Sig Dispense Quantity Refills Last Filled Start Date End Date carvedilol (COREG) 12.5 mg tablet Take 1 tablet (12.5 mg total) by mouth 2 (two) times a day with meals 60 tablet 11 08/23/2018 12/27/2018 documented in this encounter Progress Notes * Catarina Huerta MD - 08/23/2018 12:00 AM CDT Date: 08/23/2018 INDIA CLEANING MD [address] [place], [place] [id number] Patient Name: EVAN HODGSON Date of : 1940 Date of Visit: 08/23/[address] Cleaning: I had the pleasure of seeing Shireen in cardiology follow-up. When I saw her last in May, she was in asymptomatic rate controlled atrial fibrillation. Blood pressure was well controlled at that time. Since that time, however, she has been having worsened blood pressure control and her heart rates charted at home have typically in excess of 100. She does not feel palpitations, but she has been more breathless since the blood pressure has been up. Typically readings are anywhere from 140 to 155 with diastolics in the 90s and 100s. She reminds me that she has been having a great deal of family stress. PAST MEDICAL HISTORY: Unchanged from my note of June 02. FAMILY HISTORY: Unchanged. SOCIAL HISTORY: Unchanged. REVIEW OF SYSTEMS: Unchanged. MEDICATIONS: 1. Alprazolam 0.25 mg as needed. 2. Amlodipine 5 mg daily. 3. Atorvastatin 40 mg daily. 4. Calcium plus D. 5. Duloxetine 60 mg daily. 6. Hydrochlorothiazide 25 mg daily. 7. Levothyroxine 25 mcg daily. 8. Losartan 100 mg daily. 9. Metformin 1000 mg at bedtime. 10. Sotalol 80 b.i.d. 11. Warfarin. 12. Zolpidem at bedtime p.r.n. PHYSICAL EXAMINATION: VITAL SIGNS: Today her weight is up another 7 pounds at 201. Heart rate 88 and irregular. Blood pressure 148/104, repeated at 150/100. SKIN: Without rash or lesion. HEENT: Unremarkable. NECK: Supple. LUNGS: Clear. CARDIAC: No jugular venous distention. The PMI is not displaced. S1 and S2 are normal. She is irregularly irregular. ABDOMEN: Without organomegaly, mass, or tenderness. She has no edema. DIAGNOSTIC IMPRESSION: 1. Atrial fibrillation appears persistent with suboptimal rate control. Sotalol has been a good drug for her for a number of years, but it may be that she will cross over to chronic AFib. I am going to add carvedilol 12.5 mg b.i.d. both for blood pressure and rate control and bring her back in reassessment in a few weeks. At that point, if she continues to be in AFib and really not symptomatic with it, we will consider stopping the sotalol. 2. Hypertension as above. Thank you very much for letting me participate in her care. Respectfully, ELECTRONICALLY SIGNED - 08/23/2018 04:49 PM Catarina Huerta M.D., F.A.C.C. manager of applications development LS/an cc: INDIA CLEANING MD / / documented in this encounter Plan of Treatment Not on file documented as of this encounter Procedures Procedure Name Priority Date/Time Associated Diagnosis Comments ECG 12-LEAD Routine 08/23/2018 Paroxysmal atrial fibrillation (CMS/HCC) documented in this encounter Results * (ABNORMAL) Basic metabolic panel (08/23/2018 3:05 PM CDT) Sodium 138 135 - 145 mmol/L [facility] Potassium, pl 3.5 3.3 - 4.9 mmol/L [...] 2017. Calcium 9.7 8.5 - 10.3 mg/dL MINDI MARTINEZ Blood specimen (specimen) 08/23/2018 3:05 PM CDT 08/23/2018 3:53 PM CDT Narrative MINDI MARTINEZ - 08/23/2018 5:05 PM CDT Catarina Huerta MD LAB BLOOD ORDERABLES Final R esult MINDI SMARTCH [address] [facility]. Department [place] [address] * ECG 12 lead (08/23/2018) Catarina Huerta MD ECG ORDERABLES Final Result documented in this encounter Visit Diagnoses Diagnosis Essential hypertension- Primary Unspecified essential hypertension Paroxysmal atrial fibrillation (CMS/HCC) (HCC) Atrial fibrillation Hyperlipidemia, unspecified hyperlipidemia type Paroxysmal atrial fibrillation (CMS/HCC) (HCC) Atrial fibrillation documented in this encounter Care Teams Distribution Systems Serviceperson Relationship Specialty Start Date End Date India Cleaning Jr., MD [facility] [place] [address] PCP - General 07/03/16 07/15/20 documented as of this encounter
--- OUTSIDE RECORDS SUMMARY | 2024-03-13 01:17 | XMS_ITS | Encounter Summary ---
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 Gender Identity Not on file Sexual Orientation Not on file documented as of this encounter Plan of Treatment Not on file documented as of this encounter Procedures Procedure Name Priority Date/Time Associated Diagnosis Comments SCAN - LABS 04/05/2018 documented in this encounter Results * SCAN - LABS (04/05/2018) Apolonia Sinha RN Final Result documented in this encounter Visit Diagnoses Not on filedocumented in this encounter Care Teams Record Producer Relationship Specialty Start Date End Date Wilber Cleaning Jr., MD [address] [place] [address] PCP - General 07/03/16 07/15/20 documented as of this encounter
--- OUTSIDE RECORDS SUMMARY | 2024-03-13 01:17 | XMS_ITS | Encounter Summary ---
Author Organization [facility] Address [address] [place] [address] Phone Care Team Providers Care Box Blank Machine Operator Name Role Phone Hermila Calhoun MD, Wilber Martinez Primary Care Provider Encounter Details Date Type Department Care Team (Latest Contact Info) Description 02/09/2019 Anticoagulation Telephone Call [facility] Cardiology [address] [facility] Advanced Medicine 8th [place] [address] [place] [address] Cathleen Walker MD [address] [facility] [address] [place], [place] [id number] Atrial fibrillation, unspecified type (CMS/HCC) Social History Tobacco Use Types Packs/Day Years Used Date Smoking Tobacco: Never Smokeless Tobacco: Never Comments Unknown Sex and Gender Information Value Date Recorded Sex Assigned at Not on file 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
--- OUTSIDE RECORDS SUMMARY | 2024-03-13 01:17 | XMS_ITS | Encounter Summary ---
Author Organization [facility] Address [address] [place] [address] Phone Care Team Providers Care Energy Efficient Site Manager Name Role Phone Hermila Calhoun MD, Wilber Martinez Primary Care Provider Encounter Details Date Type Department Care Team (Latest Contact Info) Description 07/08/2018 Anticoagulation Telephone Call [facility] Cardiology [address] [facility] Medical Office [address] [place] [address] Catarina Huerta MD [address] [facility] [address] [place] [address] Atrial fibrillation, unspecified type (CMS/HCC) Social History Tobacco Use Types Packs/Day Years Used Date Smoking Tobacco: Never Smokeless Tobacco: Never Comments Unknown Sex and Gender Information Value Date Recorded Sex Assigned at Not on file 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 Pt verbalized understanding documented in this encounter Plan of Treatment Not on file documented as of this encounter Procedures Procedure Name Priority Date/Time Associated Diagnosis Comments PROTIME-INR Routine 07/08/2018 documented in this encounter Results * (ABNORMAL) Protime-INR (07/08/2018) INR 2.40(A) 0.9 - 1.1 EXTERNAL LAB Blood specimen (specimen) Historical Provider LAB BLOOD ORDERABLES Sri l Result EXTERNAL LAB documented in this encounter Visit Diagnoses Diagnosis Atrial fibrillation, unspecified type (HCC) documented in this encounter Care Teams Energy Efficient Site Manager Relationship Specialty Start Date End Date Wilber Cleaning Jr., MD [address] [place] [address] PCP - General 07/03/16 07/15/20 documented as of this encounter
--- OUTSIDE RECORDS SUMMARY | 2024-03-13 01:17 | XMS_ITS | Encounter Summary ---
Author Organization [facility] Address [address] [place] [address] Phone Care Team Providers Care Clipping Marker Name Role Phone Hermila Calhoun MD, Wilber A. Primary Care Provider Encounter Details Date Type Department Care Team (Late st Contact Info) Description 03/25/2019 Anticoagulation Tele phone Call [facility] Cardiology [address] 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 Gender Identity Not on file Sexual Orientation Not on file documented as of this encounter Plan of Treatment Not on file documented as of this encounter Procedures Procedure Name Priority Date/Time Associated Diagnosis Comments PROTIME-INR Routine 03/24/2019 documented in this encounter Results * (ABNORMAL) Protime-INR (03/24/2019) INR 2.10(A) 0.9 - 1.1 EXTERNAL LAB Blood specimen (specimen) us Historical Provider LAB BLOOD ORDERABLES Sri davalos Result EXTERNAL LAB documented in this encounter Visit Diagnoses Not on filedocumented in this encounter Care Teams Clipping Marker Relationship Specialty Start Date End Date Wilber Cleaning Jr., MD [address] [place] [address] PCP - General 07/03/16 07/15/20 documented as of this encounter
--- OUTSIDE RECORDS SUMMARY | 2024-03-13 01:17 | XMS_ITS | Encounter Summary ---
Author Organization [facility] Address [address] [place] [address] Phone Care Team Providers Care Ecommerce Project Manager Name Role Phone Hermila Calhoun MD, Wilber Martinez Primary Care Provider Encounter Details Date Type Department Care Team (Latest Contact Info) Description 12/21/2018 Anticoagulation Telephone Call [facility] Cardiology [address] [facility] Advanced Medicine 8th [place] [address] [place] [address] Cathleen Walker MD [address] [facility] [address] [place], [place] [id number] Atrial fibrillation, unspecified type (CMS/HCC) Social History [...] Miscellaneous Notes * Telephone Encounter - Concepcion Iniguez MA - 12/22/2018 8:28 AM CDT Lmor with results and reqs. * Telephone Encounter - Paulina Bright RN - 12/21/2018 5:17 PM CDT 12/21-please have pt continue her current dose and recheck in 2wks, due 01/04. RM documented in this encounter Plan of Treatment Not on file documented as of this encounter Visit Diagnoses Diagnosis Atrial fibrillation, unspecified type (HCC) documented in this encounter Care Teams Ecommerce Project Manager Relationship Specialty Start Date End Date Wilber Cleaning Jr., MD [address] [place] [address] PCP - General 07/03/16 07/15/20 documented as of this encounter
--- OUTSIDE RECORDS SUMMARY | 2024-03-13 01:17 | XMS_ITS | Encounter Summary ---
Author Organization [facility] Address [address] [place] [address] Phone Care Team Providers Care Lab Associate Name Role Phone Hermila Calhoun MD, Wilber Martinez Primary Care Provider Encounter Details Date Type Department Care Team (Latest Contact Info) Description 05/11/[address] 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
--- OUTSIDE RECORDS SUMMARY | 2024-03-13 01:17 | XMS_ITS | Encounter Summary ---
Author Organization [facility] Address [address] [place] [address] Phone Care Team Providers Care Foreclosure Field Inspector Name Role Phone Hermila Calhoun MD, Wilber Martinez Primary Care Provider Encounter Details Date Type Department Care Team (Late st Contact Info) Description 08/19/2018 Telephone [facility] Cardiology [address] [facility] Advanced Medicine 8th [place] [address] [place] [address] Catarina Huerta MD [address] [place] [address] Social History Tobacco Use Types Packs/Day Years Used Date Smoking Tobacco: Never Smokeless Tobacco: Never Comments Unknown Sex and Gender Information Value Date Recorded Sex Assigned at Not on file 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 documented in this encounter Plan of Treatment Not on file documented as of this encounter Visit Diagnoses Not on filedocumented in this encounter Care Teams Foreclosure Field Inspector Relationship Specialty Start Date End Date Wilber Cleaning Jr., MD [address] [place] [address] PCP - General 07/03/16 07/15/20 documented as of this encounter
--- OUTSIDE RECORDS SUMMARY | 2024-03-13 01:17 | XMS_ITS | Encounter Summary ---
Author Organization [facility] Address [address] [place] [address] Phone Care Team Providers Care Manager Pet Name Role Phone Hermila Calhoun MD, Wilber Martinez Primary Care Provider Encounter Details Date Type Department Care Team (Latest Contact Info) Description 04/15/2018 Orders Only [facility] Apolonia Sinha RN Social History Tobacco Use Types Packs/Day Years Used Date Smoking Tobacco: Never Smokeless Tobacco: Never Comments Unknown Sex and Gender Information Value Date Recorded Sex Assigned at Not on file 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 Gender Identity Not on file Sexual Orientation Not on file documented as of this encounter Plan of Treatment Not on file documented as of this encounter Procedures Procedure Name Priority Date/Time Associated Diagnosis Comments SCAN - LABS 04/15/2018 7:12 AM BINDERY PRODUCTION MANAGER documented in this encounter Results * SCAN - LABS (04/15/2018 7:12 AM BINDERY PRODUCTION MANAGER) Apolonia Sinha RN Final Result documented in this encounter Visit Diagnoses Not on filedocumented in this encounter Care Teams Manager Pet Relationship Specialty Start Date End Date Wilber Cleaning Jr., MD [address] [place] [address] PCP - General 07/03/16 07/15/20 documented as of this encounter
--- OUTSIDE RECORDS SUMMARY | 2024-03-13 01:17 | XMS_ITS | Encounter Summary ---
Author Organization [facility] Address [address] [place] [address] Phone Care Team Providers Care Shoe Clerk Name Role Phone Hermila Calhoun MD, Wilber Martinez Primary Care Provider Encounter Details Date Type Department Care Team (Latest Contact Info) Description 04/19/2019 Orders Only [facility] Scanning, Provider Social History Tobacco Use Types Packs/Day Years Used Date Smoking Tobacco: Never Smokeless Tobacco: Never Comments Unknown Sex and Gender Information Value Date Recorded Sex Assigned at Not on file 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 Gender Identity Not on file Sexual Orientation Not on file documented as of this encounter Progress Notes * Paulina Bright RN - 04/19/2019 11:59 PM CST Reviewed See anti coag episode ERNMAKER GRADER documented in this encounter Plan of Treatment Not on file documented as of this encounter Procedures Procedure Name Priority Date/Time Associated Diagnosis Comments SCAN - LABS 04/19/2019 documented in this encounter Results * SCAN - LABS (04/19/2019) us Provider Scanning Final Result documented in this encounter Visit Diagnoses Not on filedocumented in this encounter Care Teams Shoe Clerk Relationship Specialty Start Date End Date Wilber Cleaning Jr., MD [address] [place] [address] PCP - General 07/03/16 07/15/20 documented as of this encounter
--- OUTSIDE RECORDS SUMMARY | 2024-03-13 01:17 | XMS_ITS | Encounter Summary ---
Author Organization [facility] Address [address] [place] [address] Phone Care Team Providers Care Mountain Guide Name Role Phone Hermila Calhoun MD, Wilber Martinez Primary Care Provider Encounter Details Date Type Department Care Team (Latest Contact Info) Description 04/20/2019 Anticoagulation Telephone Call [facility] Cardiology [address] [facility] Advanced Medicine 8th [place] [address] [place] [address] Cathleen Walker MD [address] [facility] [address] [place], [place] [id number] Atrial fibrillation, unspecified type (CMS/HCC) Social History Tobacco Use Types Packs/Day Years Used Date Smoking Tobacco: Never Smokeless Tobacco: Never Comments Unknown Sex and Gender Information Value Date Recorded Sex Assigned at Not on file 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 Gender Identity Not on file Sexual Orientation Not on file documented as of this encounter Plan of Treatment Not on file documented as of this encounter Procedures Procedure Name Priority Date/Time Associated Diagnosis Comments PROTIME-INR Routine 04/19/2019 documented in this encounter Results * (ABNORMAL) Protime-INR (04/19/2019) INR 1.90(A) 0.9 - 1.1 EXTERNAL LAB Blood specimen (specimen) us Historical Provider LAB BLOOD ORDERABLES Sri davalos Result EXTERNAL LAB documented in this encounter Visit Diagnoses Diagnosis Atrial fibrillation, unspecified type (HCC) documented in this encounter Care Teams Mountain Guide Relationship Specialty Start Date End Date Wilber Cleaning Jr., MD [address] [place] [address] PCP - General 07/03/16 07/15/20 documented as of this encounter
--- OUTSIDE RECORDS SUMMARY | 2024-03-13 01:17 | XMS_ITS | Encounter Summary ---
Author Organization [facility] Address [address] [place] [address] Phone Care Team Providers Care Department Director Name Role Phone Hermila Calhoun MD, Wilber Martinez Primary Care Provider Encounter Details Date Type Department Care Team (Latest Contact Info) Description 03/31/2018 Anticoagulation Telephone Call [facility] [address] [facility] Medical Office Building [address] [place] [address] Catarina Huerta MD [address] 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 ONAL CRA * Telephone Encounter - Apolonia Sinha RN - 03/31/2018 10:36 AM CST 3mg Mon, then 2mg other days recheck 1 week thanks ONAL CRA * Telephone Encounter - Gail Redman MA - 03/31/2018 10:24 AM REGIONAL CRA She reports she fell 1 week ago and compression fracture of the vertebrae in her lower back. Takingdaily tylenol and a topical pain cream (she does not have the name but pharmacist advised her to watch INR). She will be travelling to [place] in 3 days and has a standing order in hand if she needs to go to a lab. ONAL CRA ONAL CRA documented in this encounter Plan of Treatment Not on file documented as of this encounter Visit Diagnoses Diagnosis Atrial fibrillation, unspecified type (HCC) documented in this encounter Care Teams Department Director Relationship Specialty Start Date End Date Wilber Cleaning Jr., MD [address] [place] [address] PCP - General 07/03/16 07/15/20 documented as of this encounter
--- OUTSIDE RECORDS SUMMARY | 2024-03-13 01:17 | XMS_ITS | Encounter Summary ---
Author Organization [facility] Address [address] [place] [address] Phone Care Team Providers Care Art Objects Repairer Name Role Phone Hermila Calhoun MD, Wilber Martinez Primary Care Provider Encounter Details Date Type Department Care Team (Latest Contact Info) Description 03/10/2019 Anticoagulation Telephone Call [facility] Cardiology [address] [facility] Advanced Medicine 8th [place] [address] [place] [address] Cathleen Walker MD [address] [facility] [address] [place] [address] Atrial fibrillation, unspecified type (CMS/HCC) [...] Priority Date/Time Associated Diagnosis Comments PROTIME-INR Routine 03/07/2019 documented in this encounter Results * (ABNORMAL) Protime-INR (03/07/2019) INR 1.90(A) 0.9 - 1.1 EXTERNAL LAB Blood specimen (specimen) us Historical Provider LAB BLOOD ORDERABLES Sri davalos Result EXTERNAL LAB documented in this encounter Visit Diagnoses Diagnosis Atrial fibrillation, unspecified type (HCC) documented in this encounter Care Teams Art Objects Repairer Relationship Specialty Start Date End Date Wilber Cleaning Jr., MD [address] [place] [address] PCP - General 07/03/16 07/15/20 documented as of this encounter
--- OUTSIDE RECORDS SUMMARY | 2024-03-13 01:17 | XMS_ITS | Encounter Summary ---
Author Organization [facility] Facility Care Team Providers Care Contract Processor Name Role Phone Hermila Calhoun MD, Oscar A. 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
--- OUTSIDE RECORDS SUMMARY | 2024-03-13 01:17 | XMS_ITS | Encounter Summary ---
Author Organization [facility] Address [address] [place] [address] Phone Care Team Providers Care Bundle Cutter Name Role Phone Hermila Calhoun MD, Wilber Martinez Primary Care Provider Encounter Details Date Type Department Care Team (Latest Contact Info) Description 11/04/2018 Anticoagulation Telephone Call [facility] Cardiology [address] [facility] Medical Office Building [address] [place] [address] Catarnia Huerta MD [address] [facility] [address] [place] [address] Persistent atrial fibrillation (CMS/HCC) Social History Tobacco Use Types Packs/Day Years Used Date Smoking Tobacco: Never Smokeless Tobacco: Never Comments Unknown Sex and Gender Information Value Date Recorded Sex Assigned at Not on file 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 She reports she had a small glass of wine last night. Pt also reports she tried Saxenda for weight loss but has not taken it for the past week. Pt has been very stable on 2 mgdaily dose. Pt instructed to take 1 mg tonight, then resume 2 mg and recheck 1 week. jf * Telephone Encounter - Margarita Méndez RN - 11/04/2018 4:18 PM CDT LMOR for pt to call. documented in this encounter Plan of Treatment Not on file documented as of this encounter Visit Diagnoses Diagnosis Persistent atrial fibrillation (HCC) Atrial fibrillation documented in this encounter Care Teams Bundle Cutter Relationship Specialty Start Date End Date Wilber Cleaning Jr., MD [address] [place] [address] PCP - General 07/03/16 07/15/20 documented as of this encounter
--- OUTSIDE RECORDS SUMMARY | 2024-03-13 01:17 | XMS_ITS | Encounter Summary ---
Author Organization [facility] Address [address] [place] [address] Care Team Providers Care Ground Crewman Mission Support Name Role Phone Hermila Calhoun MD, Wilber Martinez Primary Care Provider Encounter Details Date Type Department Care Team (Latest Contact Info) Description 05/21/2019 7:33 PM SENIOR SYSTEMS DEVELOPER - 05/21/2019 7:34 PM SENIOR SYSTEMS DEVELOPER Hospital Encounter [facility] [address] [place] [address] Discharge Disposition: Discharge to home or self care Social History Tobacco Use Types Packs/Day Years Used Date Smoking Tobacco: Never Smokeless Tobacco: Never Comments Unknown Sex and Gender Information Value Date Recorded Sex Assigned at Not on file Legal Sex Female 4:20 AM SENIOR SYSTEMS DEVELOPER Gender Identity Not on file Sexual [...] Name Priority Date/Time Associated Diagnosis Comments XR TRANSFER OF OUTSIDE FILMS ED 05/21/2019 7:33 PM SENIOR SYSTEMS DEVELOPER documented in this encounter Results * XR Outside Reference (05/21/2019 7:33 PM SENIOR SYSTEMS DEVELOPER) Impressions [facility] - 05/21/2019 7:33 PM SENIOR SYSTEMS DEVELOPER These images are for Reference purposes only and have not been reviewed by [facility]. ??There will be no report generated by a [facility]iologist. Narrative [facility] - 05/21/2019 7:33 PM SENIOR SYSTEMS DEVELOPER EXAMINATION: ??Images For Reference Purposes Only Alessandro Nahun Malone MD IMG XR PROCEDURES Final Result [facility] documented in this encounter Visit Diagnoses Not on filedocumented in this encounter Care Teams Ground Crewman Mission Support Relationship Specialty Start Date End Date Wilber Cleaning Jr., MD [address] [place] [address] PCP - General 07/03/16 07/15/20 documented as of this encounter
--- OUTSIDE RECORDS SUMMARY | 2024-03-13 01:17 | XMS_ITS | Encounter Summary ---
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 Aislinn Goldsmith, VARNISHING UNIT TOOL SETTER 06/09/2019 06/09/2019 06/09/2019 4:20 PM C DT documented as of this encounter Care Teams Fish Worm Grower Relationship Specialty Start Date End Date Wilber Cleaning Jr., MD [address] [place] [address] PCP - General 07/03/16 07/15/20 Ryann Galdamez PA [address] [place] [address] PCP - General Rn Neonatal 07/16/20 04/01/21 documented as of this encounter
--- OUTSIDE RECORDS SUMMARY | 2024-03-13 01:17 | XMS_ITS | Encounter Summary ---
Author Organization [facility] Address [address] [place] [address] Phone Care Team Providers Care Veterinary Hospital Attendant Name Role Phone Hermila Calhoun MD, Wilber Duckworth. Primary Care Provider Encounter Details Date Type Department Care Team (Late st Contact Info) Description 05/09/2019 Telephone [facility] Cardiology [facility] Medical Office Building [address] [place] [address] Cathleen Walker MD [address] [facility] [address] [facility] [place] [address] Social History Tobacco Use Types Packs/Day Years Used Date Smoking Tobacco: Never Smokeless Tobacco: Never Comments Unknown Sex and Gender Information Value Date Recorded Sex Assigned at Not on file Legal Sex Female 4:20 AM MULTI NEEDLE MACHINE OPERATOR Gender Identity Not on file Sexual Orientation Not on file documented as of this encounter Miscellaneous Notes * Telephone Encounter - Sharon Harrington, [facility] - 05/09/2019 2:15 PM MULTI NEEDLE MACHINE OPERATOR 05/09/19: Spoke with patient she stated that she just got back in town and is not feeling well. She will try to go tomorrow. I NEEDLE MACHINE OPERATOR documented in this encounter Plan of Treatment Not on file documented as of this encounter Visit Diagnoses Not on filedocumented in this encounter Care Teams Veterinary Hospital Attendant Relationship Specialty Start Date End Date Wilber Cleaning Jr., MD [address] [place] [address] PCP - General 07/03/16 07/15/20 documented as of this encounter
--- OUTSIDE RECORDS SUMMARY | 2024-03-13 01:17 | XMS_ITS | Encounter Summary ---
Author Organization [facility] Address [address] [place] [address] Phone Care Team Providers Care Instructor Of Spanish Name Role Phone Hermila Calhoun MD, Wilber Martinez Primary Care Provider Encounter Details Date Type Department Care Team (Latest Contact Info) Description 04/06/2018 Anticoagulation Telephone Call [facility] Cardiology [address] [facility] Medical Office Building [address] [place] [address] Catarina Huerta MD [address] [facility] [address] [place] [address] Atrial fibrillation, unspecified type (CMS/HCC) Social History Tobacco Use Types Packs/Day Years Used Date Smoking Tobacco: Never Smokeless Tobacco: Never Comments Unknown Sex and Gender Information Value Date Recorded Sex Assigned at Not on file 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 WALL NAILER * Telephone Encounter - Apolonia Sinha, ARMANI - 04/06/2018 8:50 AM CST 1mg Tu robin 2mg other days recheck 1 week thanks WALL NAILER documented in this encounter Plan of Treatment Not on file documented as of this encounter Procedures Procedure Name Priority Date/Time Associated Diagnosis Comments PROTIME-INR Routine 04/05/2018 documented in this encounter Results * (ABNORMAL) Protime-INR (04/05/2018) INR 3.30(A) 0.9 - 1.1 EXTERNAL LAB Blood specimen (specimen) us Historical Provider LAB BLOOD ORDERABLES [place] Result EXTERNAL LAB documented in this encounter Visit Diagnoses Diagnosis Atrial fibrillation, unspecified type (HCC) documented in this encounter Care Teams Instructor Of Spanish Relationship Specialty Start Date End Date Wilber Cleaning Jr., MD [address] [place] [address] PCP - General 07/03/16 07/15/20 documented as of this encounter
--- OUTSIDE RECORDS SUMMARY | 2024-03-13 01:17 | XMS_ITS | Encounter Summary ---
Author Organization [facility] Address [address] [place] [address] Phone Care Team Providers Care Salvage Engineer Name Role Phone Hermila Calhoun MD, Wilber Martinez Primary Care Provider Encounter Details Date Type Department Care Team (Latest Contact Info) Description 06/10/2018 Anticoagulation Telephone Call [facility] Cardiology [address] [facility] Medical Office [address] [place] [address] Catarina Huerta MD [address] [facility] [address] [place] [address] Atrial fibrillation, unspecified type (CMS/HCC) Social History Tobacco Use Types Packs/Day Years Used Date Smoking Tobacco: Never Smokeless Tobacco: Never Comments Unknown Sex and Gender Information Value Date Recorded Sex Assigned at Not on file Legal Sex Female 4:20 AM REGIONAL GEODETIC ADVISOR Gender Identity Not on file Sexual Orientation Not on file documented as of this encounter Miscellaneous Notes * Telephone Encounter - Apolonia Sinha RN - 06/10/2018 4:03 PM CDT Noted thanks * Telephone Encounter - Gail Redman MA - 06/10/2018 3:50 PM CDT I spoke to Prema Pearce who verbalizes understanding of result and orders given. She took 2mg all last week by mistake. She is apprehensive about going to 1mg x 2 days and 2mg x 5.I asked her if she would be comfortable going to 2mg x 6 and 1mg Tu, and she was agreeable. * Telephone Encounter - Apolonia Sinha RN - 06/10/2018 10:24 AM CDT No change recheck 1 week thanks documented in this encounter Plan of Treatment Not on file documented as of this encounter Visit Diagnoses Diagnosis Atrial fibrillation, unspecified type (HCC) documented in this encounter Care Teams Salvage Engineer Relationship Specialty Start Date End Date Wilber Cleaning Jr., MD [address] [place] [address] PCP - General 07/03/16 07/15/20 documented as of this encounter
--- OUTSIDE RECORDS SUMMARY | 2024-03-13 01:17 | XMS_ITS | Encounter Summary ---
Author Organization [facility] Address [address] [place] [address] Phone Care Team Providers Care Program Advocate Name Role Phone Hermila Calhoun MD, Wilber Martinez Primary Care Provider Encounter Details Date Type Department Care Team (Latest Contact Info) Description 08/04/2018 Anticoagulation Telephone Call [facility] Cardiology [address] 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 No missed doses. * Telephone Encounter - Gail Redman MA - 08/04/2018 2:40 PM CDT I left a message for Prema Pearce with result and orders. Asked for a call back if she DID miss a dose * Telephone Encounter - Margarita Méndez RN - 08/04/2018 9:34 AM CDT If no missed doses , Change to 2 mg daily and recheck 1 week. jf documented in this encounter Plan of Treatment Not on file documented as of this encounter Visit Diagnoses Diagnosis Atrial fibrillation, unspecified type (HCC) documented in this encounter Care Teams Program Advocate Relationship Specialty Start Date End Date Wilber Cleaning Jr., MD [address] [place] [address] PCP - General 07/03/16 07/15/20 documented as of this encounter
--- OUTSIDE RECORDS SUMMARY | 2024-03-13 01:17 | XMS_ITS | Encounter Summary ---
Author Organization [facility] Address [address] [place] [address] Phone Care Team Providers Care Scan Coordinator Name Role Phone Hermila Calhoun MD, India Martinez Primary Care Provider Reason for Referral * (Routine) - Closed Specialty Diagnoses / Procedures Referred By Contac t Referred To Contact Diagnoses Persistent atrial fibrillation (HCC) Procedures ECG 12 lead Catarina Huerta MD Phone: tel: fax: Heart [facility] Referral ID Status Reason Start Date Expiration Date Visits Re quested Visits Authorized [id number] Closed 09/07/2018 03/18/2020 1 1 Reason for Visit * Cardiology (Routine) - Closed Specialty Diagnoses / Procedures Referred By Contac t Referred To Contact Cardiology Diagnoses BP Procedures RETURN India Cleaning Jr., MD Phone: tel: fax: Catarina Huerta MD [address] [place] [address] Phone: tel: fax: Referral ID Status Reason Start Date Expiration Date Visits Re quested Visits Authorized [id number] Closed 08/17/2018 12/13/2018 5 5 Encounter Details Date Type Department Care Team (Late st Contact Info) Description 09/07/2018 1:30 PM CDT Office Visit 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 Gender Identity Not on file Sexual Orientation Not on file documented as of this encounter Last Filed Vital Signs Vital Sign Reading Time Taken Comments Blood Pressure 141/97 09/07/2018 1:27 PM CDT Pulse 85 09/07/2018 1:27 PM CDT Temperature - - Respiratory Rate - - Oxygen Saturation 95% 09/07/2018 1:27 PM CDT Inhaled Oxygen Concentration - - Weight 91.2 kg (201 lb) 09/07/2018 1:27 PM CDT Height 157.5 cm (5' 2 ) 09/07/2018 1:27 PM CDT Body Mass Index 36.76 09/07/2018 1:27 PM CDT documented in this encounter Patient Instructions * Patient Instructions* Catarina Huerta MD - 09/07/2018 1:30 PM CDT Return in about 4 months to establish with Dr. Cathleen Walker. documented in this encounter Progress Notes * Catarina Hureta MD - 09/07/2018 12:00 AM CDT Date: 09/07/2018 INDIA CLEANING MD [address] [place], [place] [id number] Patient Name: EVAN HODGSON Date of : 1940 Date of Visit: 09/07/[address] Cleaning: I had the pleasure of seeing Evan Hodgson in Cardiology follow-up today. She is a delightful 78-year-old woman with hypertension and atrial fibrillation. She had been controlled for a number of years with sotalol but has recently relapsed into at least paroxysmal atrial fibrillation which is asymptomatic and rate controlled. Her blood pressure was up when I saw her in early August, so I added carvedilol 12.5 mg twice daily to her regimen hoping to improve AFib control as well as lower her blood pressure. She returns in follow-up today. Home blood pressures have, in fact, been much better, typically in the 110 to 120 range with normal diastolics. Her charted heart rates are typically in the 80s, and she does not feel any palpitations. PAST MEDICAL HISTORY: Unchanged. FAMILY HISTORY: Unchanged. SOCIAL HISTORY: Unchanged. MEDICATIONS: 1. Alprazolam as needed. 2. Amlodipine 5 mg daily. 3. Atorvastatin 40 mg daily. 4. Carvedilol 12.5 mg twice daily. 5. Cymbalta 60 mg daily. 6. Hydrochlorothiazide 25 mg daily. 7. Levothyroxine 25 mcg daily. 8. Losartan 100 mg daily. 9. Metformin 1000 mg daily. 10. Betapace 80 mg b.i.d. 11. Warfarin. PHYSICAL EXAMINATION: VITAL SIGNS: Weight which is stable at 201 pounds. Heart rate 84 and irregular. Blood pressure 141/97, repeated 135/84. SKIN: Without rash or lesion. HEENT: Unremarkable. NECK: Supple without mass or thyromegaly. LUNGS: Clear. CARDIAC: No jugular venous distention. The PMI is not displaced. S1 and S2 are normal. There is no S3. ABDOMEN: Without organomegaly, mass, or tenderness. EXTREMITIES: There is no edema. DIAGNOSTIC IMPRESSIONS: 1. Atrial fibrillation, now persistent versus paroxysmal but still asymptomatic. I am not going to change our current strategy, but down the line, we may want to consider stopping sotalol if she continues to be in AFib. 2. Hypertension is much better controlled. She will return in clinical follow-up in about 4 months to establish with Dr. Cathleen Walker. Thank you for letting me participate in her care. Respectfully, ELECTRONICALLY SIGNED - 09/08/2018 02:05 PM Catarina Huerta M.D., F.A.C.C. tile grader /[facility] cc: INDIA CLEANING MD / / documented in this encounter Plan of Treatment Not on file documented as of this encounter Procedures Procedure Name Priority Date/Time Associated Diagnosis Comments ECG 12-LEAD Routine 09/07/2018 Persistent atrial fibrillation (CMS/HCC) documented in this encounter Results * ECG 12 lead (09/07/2018) us Catarina Huerta MD ECG ORDERABLES Edited Resul t - Final documented in this encounter Visit Diagnoses Diagnosis Persistent atrial fibrillation (HCC)- Primary Atrial fibrillation Essential hypertension Unspecified essential hypertension documented in this encounter Discontinued Medications Medication Sig Discontinue Reason Start Date End Da te alendronate (FOSAMAX) 70 mg tablet Therapy completed 11/10/2017 09/07/2018 multivitamin tabletIndications:Vitamin Deficiency Prevention daily. Therapy completed 09/07/2018 calcium carbonate-vitamin D3 (CALCIUM+D) 400-133.3 mg-unit tablet daily. Therapy completed 09/07/2018 documented as of this encounter Care Teams Scan Coordinator Relationship Specialty Start Date End Date India Cleaning Jr., MD [address] [place] [address] PCP - General 07/03/16 07/15/20 documented as of this encounter
--- OUTSIDE RECORDS SUMMARY | 2024-03-13 01:17 | XMS_ITS | Encounter Summary ---
Author Organization [facility] Address [address] [place] [address] Phone Care Team Providers Care Loading Rack Supervisor Name Role Phone Hermila Calhoun MD, Wilber Martinez Primary Care Provider Encounter Details Date Type Department Care Team (Latest Contact Info) Description 11/18/2018 Anticoagulation Telephone Call [facility] Cardiology [address] 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 * Telephone Encounter - Gail Redman MA - 11/18/2018 8:59 AM CDT I left message requesting patient call me back to discuss result. * Telephone Encounter - Margarita Méndez RN - 11/18/2018 8:13 AM CDT change to 1.5 mg WSa, 2 mg x5, recheck 1 documented in this encounter Plan of Treatment Not on file documented as of this encounter Visit Diagnoses Diagnosis Persistent atrial fibrillation (HCC) Atrial fibrillation documented in this encounter Care Teams Loading Rack Supervisor Relationship Specialty Start Date End Date Wilber Cleaning Jr., MD [address] [place] [address] PCP - General 07/03/16 07/15/20 documented as of this encounter
--- OUTSIDE RECORDS SUMMARY | 2024-03-13 01:17 | XMS_ITS | Encounter Summary ---
Author Organization [facility] Address [address] [place] [address] Phone Care Team Providers Care Information Technology Architect Name Role Phone Hermila Calhoun MD, Wilber Martinez Primary Care Provider Ryann Galdamez Primary Care Provider [phone] Ryann Galdamez Primary Care Provider [phone] Chris Mendes MD Unavailable [phone] Keli Orozco RN Unavailable Unavailable Alysa Newton RN Unavailable [phone] Cuba Larsen MD Primary Care Provider [phone] Keli Orozco RN Unavailable Unavailable Keli Orozco RN Unavailable Unavailable Tami Mcknight RN Unavailable Unavailab le Encounter Details Date Type Department Care Team (Latest Contact Info) Description 12/21/2018 Orders Only [facility] Scanning, Provider Social History Tobacco Use Types Packs/Day Years Used Date Smoking Tobacco: Never Smokeless Tobacco: Never Comments Unknown Sex and Gender Information Value Date Recorded Sex Assigned at Not on file 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 Labs look good. No changes in meds. * Cathleen Walker MD - 12/21/2018 11:59 PM CDT Labs look good. No changes in meds. * Paulina Bright RN - 12/21/2018 11:59 PM CDT See other note * Paulina Bright RN - 12/21/2018 11:59 PM CDT Reviewed results w/ pt documented in this encounter Plan of Treatment [...] pt afebrile, without URI signs/symptoms. Aislinn Goldsmith, AUTOMATIC PINSETTER MECHANIC 06/09/2019 06/09/2019 06/09/2019 4:20 PM C DT documented as of this encounter Care Teams Information Technology Architect Relationship Specialty Start Date End Date Wilber Cleaning Jr., MD [address] [place] [address] PCP - General 07/03/16 07/15/20 Ryann Galdamez PA [address] [place] [address] PCP - General Assistant Business Manager 07/16/20 04/01/21 Ryann Galdamez PA [address] [place] [address] PCP - General Assistant Business Manager 04/02/21 01/22/22 Cuba Larsen MD [address] [facility] [address] [place] [address] PCP - General Family Medicine 01/23/22 Chris Mendes MD [address] [place] [address] Referring Physician Cardiology 12/23/21 Keli Orozco, lining machine tenderGlass Setter Cardiology 12/23/21 04/15/23 Alysa Newton, RN [address] [facility] [address] [place] [address] Glass Setter Cardiology 12/23/21 Keli Orozco, nurse office Failure Coordinator 04/02/23 4 Keli Orozco, nurse office Failure Coordinator Transplant 04/15/23 Tami Mcknight RN Heart Failure Coordinator Cardiology 09/14/23 documented as of this encounter
--- OUTSIDE RECORDS SUMMARY | 2024-03-13 01:17 | XMS_ITS | Encounter Summary ---
Author Organization [facility] Address [address] [place] [address] Phone Care Team Providers Care Certified Registered Dental Assistant Name Role Phone Hermila Calhoun MD, Wilber Martinez Primary Care Provider Encounter Details Date Type Department Care Team (Latest Contact Info) Description 05/19/2019 Anticoagulation Telephone Call [facility] Cardiology [facility] Medical Office Building [address] [place] [address] Cathleen Walker MD [address] [facility] [address] [place] [address] Atrial fibrillation, unspecified type (CMS/HCC) Social History Tobacco Use Types Packs/Day Years Used Date Smoking Tobacco: Never Smokeless Tobacco: Never Comments Unknown Sex and Gender Information Value Date Recorded Sex Assigned at Not on file 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
--- OUTSIDE RECORDS SUMMARY | 2024-03-13 01:17 | XMS_ITS | Encounter Summary ---
Author Organization [facility], [facility] Address [address] [place] [address] Phone Care Team Providers Care Blast Furnace Tender Name Role Phone Hermila Calhoun MD, Wibler Martinez Primary Care Provider Encounter Details Date Type Department Care Team (Latest Contact Info) Description 12/07/2018 Anticoagulation Telephone Call [facility] Cardiology [address] [facility] [address] [place] [address] Catarina Huerta MD [address] [facility] [address] [place] [address] Persistent atrial fibrillation (CMS/HCC) Social History Tobacco Use Types Packs/Day Years Used Date Smoking Tobacco: Never Smokeless Tobacco: Never Comments Unknown Sex and Gender Information Value Date Recorded Sex Assigned at Not on file 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 Flowsheet updated and standing order sent under Dr. Walker name * Telephone Encounter - Margarita Méndez RN - 12/07/2018 4:23 PM CDT No change, recheck 1 week. jf documented in this encounter Plan of Treatment Scheduled Orders Name Type Priority Associated Diagnoses Orde r Schedule Protime-INR Lab Routine Persistent atrial fibrillation ([facility]/HCC) 26 Occurrences starting 12/07/2018 until 06/07/2019, 7 completed documented as of this encounter Procedures Procedure Name Priority Date/Time Associated Diagnosis Comments PROTIME-INR Routine 05/19/2019 11:34 AM SUPERVISOR METER SHOP Persistent atrial fibrillation PROTIME-INR Routine 05/11/2019 9:16 AM SUPERVISOR METER SHOP Persistent atrial fibrillation PROTIME-INR Routine 02/25/2019 11:22 AM SUPERVISOR METER SHOP Persistent atrial fibrillation PROTIME-INR Routine 02/17/2019 11:46 AM SUPERVISOR METER SHOP Persistent atrial fibrillation PROTIME-INR Routine 02/08/2019 11:06 AM SUPERVISOR METER SHOP Persistent atrial fibrillation PROTIME-INR Routine 01/10/2019 1:13 PM CDT Persistent atrial fibrillation PROTIME-INR Routine 12/21/2018 8:25 AM CDT Persistent atrial fibrillation documented in this encounter Results * (ABNORMAL) Protime-INR (05/19/2019 11:34 AM SUPERVISOR METER SHOP) INR 2.2(H) [facility] [place] Comment: Reference Range ? 0.9-1.1 Moderate-intensity Warfarin Therapy 2.0-3.0 Higher-intensity Warfarin Therapy ?? 3.0-4.0 PT 23.5(H) 9.0 - 11.5 sec [facility] [place] Comment: For more information on this test, go to: http://Mayomi.[employer]/faq/CZB459 Blood specimen (specimen) 05/19/2019 11:34 AM SUPERVISOR METER SHOP 05/19/2019 11:34 AM SUPERVISOR METER SHOP Narrative Resulting Agency Comment Performing Organization Information: ?Site ID: [place] ?Name: [facility] ?Address: Replaced by [facility] [place] [id number] ?Director: Christian Wheeler Cathleen Mccormick MD LAB BLOOD ORDERA BLES Final Result [facility] [place] * (ABNORMAL) Protime-INR (05/11/2019 9:16 AM SUPERVISOR METER SHOP) INR 1.7(H) [facility] [place] Comment: Reference Range ? 0.9-1.1 Moderate-intensity Warfarin Therapy 2.0-3.0 Higher-intensity Warfarin Therapy ?? 3.0-4.0 PT 17.5(H) 9.0 - 11.5 sec [facility] [place] Comment: For more information on this test, go to: http://Mayomi.Igen[employer]/faq/TAU350 Blood specimen (specimen) 05/11/2019 9:16 AM SUPERVISOR METER SHOP 05/11/2019 9:16 AM SUPERVISOR METER SHOP Narrative Resulting Agency Comment Performing Organization Information: ?Site ID: [place] ?Name: [facility] ?Address: [address] [address] [place] [address] ?Director: Christian Wheeler Cathleen Mccormick MD LAB BLOOD ORDERA BLES Final Result Performing Organization Address [facility] de Phone Number [facility] - [place], [place] * (ABNORMAL) Protime-INR (02/25/2019 11:22 AM SUPERVISOR METER SHOP) INR 1.9(H) [facility] - Comment: Reference Range ? 0.9-1.1 Moderate-intensity Warfarin Therapy 2.0-3.0 Higher-intensity Warfarin Therapy ?? 3.0-4.0 PT 19.1(H) 9.0 - 11.5 sec [facility] - Comment: For more information on this test, go to: http://Mayomi.[employer]gen[employer]/faq/OWF901 Blood specimen (specimen) 02/25/2019 11:22 AM SUPERVISOR METER SHOP 02/25/2019 11:22 AM SUPERVISOR METER SHOP Narrative Resulting Agency Comment Performing Organization Information: ?Site ID: ?Name: [facility] ?Address: Replaced by [facility] [place] [address] ?Director: Christian Wheeler Cathleen Mccormick MD LAB BLOOD ORDERA BLES Final Result Performing Organization Address [facility] de Phone Number [facility] [place], [place] * (ABNORMAL) Protime-INR (02/17/2019 11:46 AM SUPERVISOR METER SHOP) INR 2.1(H) [facility] - Comment: Reference Range ? 0.9-1.1 Moderate-intensity Warfarin Therapy 2.0-3.0 Higher-intensity Warfarin Therapy ?? 3.0-4.0 PT 21.4(H) 9.0 - 11.5 sec [facility] [place] Comment: For more information on this test, go to: http://[employer]/faq/VNO067 Blood specimen (specimen) 02/17/2019 11:46 AM SUPERVISOR METER SHOP 02/17/2019 11:46 AM SUPERVISOR METER SHOP Narrative Resulting Agency Comment Performing Organization Information: ?Site ID: ?Name: [facility] ?Address: Replaced by [facility] Administration [place] [phone] ?Director: Christian Wheeler Cathleen Mccormick MD LAB BLOOD ORDERA BLES Final Result Performing Organization Address City/[facility]/ZIP Co de Phone Number [facility] [place], [place] * (ABNORMAL) Protime-INR (02/08/2019 11:06 AM SUPERVISOR METER SHOP) INR 3.5(H) [facility] [place] Comment: Reference Range ? 0.9-1.1 Moderate-intensity Warfarin Therapy 2.0-3.0 Higher-intensity Warfarin Therapy ?? 3.0-4.0 PT 36.2(H) 9.0 - 11.5 sec [facility] [place] Comment: For more information on this test, go to: http://Mayomi.Igenica/faq/XES813 Blood specimen (specimen) 02/08/2019 11:06 AM SUPERVISOR METER SHOP 02/08/2019 11:06 AM SUPERVISOR METER SHOP Narrative Resulting Agency Comment Performing Organization Information: ?Site ID: ?Name: [facility] ?Address: Replaced by [facility] [place] [address] ?Director: Christian Wheeler Cathleen Mccormick MD LAB BLOOD ORDERA BLES Final Result [facility] [place] * (ABNORMAL) Protime-INR (01/10/2019 1:13 PM CDT) INR 2.2(H) [facility] [place] Comment: Reference Range ? 0.9-1.1 Moderate-intensity Warfarin Therapy 2.0-3.0 Higher-intensity Warfarin Therapy ?? 3.0-4.0 PT 21.9(H) 9.0 - 11.5 sec [facility] [place] Comment: For more information on this test, go to: http://Mayomi.Igenica/faq/ATY266 Blood specimen (specimen) 01/10/2019 1:13 PM CDT 01/10/2019 1:13 PM CDT Narrative [facility] - 01/11/2019 5:30 AM CDT FASTING:NO FASTING: NO Resulting Agency Comment Performing Organization Information: ?Site ID: [place] ?Name: [facility] ?Address: [address] [place] [address] [place] [address] ?Director: Darryl Keys D.O., MPH Cathleen Mccormick MD LAB BLOOD ORDERA BLES Final Result [facility] [place] * (ABNORMAL) Protime-INR (12/21/2018 8:25 AM CDT) INR 2.0(H) [facility] [place] Comment: Reference Range ? 0.9-1.1 Moderate-intensity Warfarin Therapy 2.0-3.0 Higher-intensity Warfarin Therapy ?? 3.0-4.0 PT 20.2(H) 9.0 - 11.5 sec [facility] [place] Comment: For more information on this test, go to: http://Mayomi.Igenica/faq/PDT756 Blood specimen (specimen) 12/21/2018 8:25 AM CDT 12/21/2018 8:25 AM CDT Narrative Resulting Agency Comment Performing Organization Information: ?Site ID: [place] ?Name: [facility] ?Address: [address] [place] [address] ?Director: Christian Wheeler Catlheen Mccormick MD LAB BLOOD ORDERA BLES Final Result [facility] [place] documented in this encounter Visit Diagnoses Diagnosis Persistent atrial fibrillation (HCC) Atrial fibrillation documented in this encounter Care Teams Blast Furnace Tender Relationship Specialty Start Date End Date Wilber Cleaning Jr., MD [address] [place] [address] PCP - General 07/03/16 07/15/20 documented as of this encounter
--- OUTSIDE RECORDS SUMMARY | 2024-03-13 01:18 | XMS_ITS | Encounter Summary ---
Author Organization [facility] Address [address] [place] [address] Care Team Providers Care Crab Picker Name Role Phone Hermila Calhoun MD, Wilber Martinez Primary Care Provider Encounter Details Date Type Department Care Team (Latest Contact Info) Description 07/16/2016 11:37 AM CDT - 07/16/2016 7:10 PM T Hospital Encounter 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 05/22/2008 09/22/2017 documented as of this encounter Discharge Disposition Disposition Code Departure Means Destination Discharge to home or self care documented in this encounter Miscellaneous Notes * Op Note - Provider, MD Cameron - 07/16/2016 12:00 AM CDT Patient: EVAN HODGSON Reg No: [id number] U H #: [id number] Admit Dt.: 07/16/2016 : 1940 Pt Type: SDS Room No: Attending: Garrett Ray M.D. Surgeon: Garrett Ray M.D. Dictating: Garrett Ray M.D. Service Dt: 07/16/2016 OPERATIVE REPORT FACILITY ID: [facility] SURGEON Garrett Ray MD ADDENDUM I was present for this entire procedure including the curvilinear extended incision across the palmar aspect left wrist with release of the carpal tunnel and the antebrachial fascia, irrigation, hemostasis, and closure and then longitudinal lateral incision left wrist, reduction of distal radius fracture and fixation with 2 lag screws and the reduction of the distal fragment with a volar Medartis plate, irrigation, hemostasis, confirmation of position with fluoroscopy, closure and application of dressing and splint. Electronically Authenticated and Edited by: Garrett Ray MD On 07/21/2016 12:52 PM CDT Garrett Ray M.D. G:[facility] #[id number] Editing MT: TD: 07/16/2016 04:22 PM cc: Garrett Ray M.D. * Op Note - Provider, MD Cameron - 07/16/2016 12:00 AM CDT Patient: EVAN HODGSON Reg No: [id number] U H #: [id number] Admit Dt.: 07/16/2016 : 1940 Pt Type: [facility] Room No: Attending: Garrett Ray M.D. Surgeon: Garrett Ray M.D. Dictating: Ce Logan M.D. Service Dt: 07/16/2016 OPERATIVE REPORT FACILITY ID: [facility] SURGEON Garrett Ray MD FIRST SENIOR MAINFRAME PROGRAMMER ANALYST Ce Logan MD ANESTHESIA General endotracheal anesthesia. PREOPERATIVE DIAGNOSIS Left distal radius fracture. POSTOPERATIVE DIAGNOSIS Left distal radius fracture. NAME OF OPERATIONS 1. ORIF left distal radius fracture. 2. Extended carpal tunnel release, left. INDICATIONS FOR PROCEDURE The patient is a 76-year-old female who presents with a left distal radius fracture after a fall while gardening on July 03, 2016. She had immediate pain after this fall and inability to use her wrist. Radiographs confirmed a left distal radius fracture with 25 degrees of dorsal angulation, 3 mm positive ulnar variance, and flattening of the distal radial articular angle. We outlined operative versus nonoperative treatment for the patient and due to her desired activity level, the patient elected to proceed with operative fixation. We thoroughly discussed the risks, benefits, and expected postoperative course and the patient was understanding of this. PROCEDURE The patient was identified in the preoperative area and the correct operative site, the left distal radius, was identified by the patient and the surgeon and marked by the surgeon. The patient was brought into the operating room and placed in a supine position with all bony prominences well padded. After adequate general endotracheal anesthesia was achieved, a well-padded nonsterile tourniquet was applied. The left upper extremity was prepped and draped in the usual sterile manner. The patient was given preoperative antibiotics. The left upper extremity was elevated and exsanguinated with an Esmarch and was inflated to 280 mmHg. We began by proceeding with a carpal tunnel release using an extended approach. A 2.5 cm curvilineal incision was made just ulnar to the palmaris tendon over the transverse carpal ligament with the 2.5 cm extension obliquely across the wrist crease. The median nerve was identified in the proximal extent of the incision and the overlying antebrachial fascia was released. The transverse carpal ligament was identified. This was incised through its entirety from proximal to distal. There was direct visualization of the fat of the superficial arch at the distal extent of the incision. There appeared to be a good release. The median nerve was inspected. The wound was thoroughly irrigated at this time. We then turned our attention to the distal radius. We used a standard Spencer approach to the distal radius. We made a longitudinal incision just radial to the radial artery. Care was taken to protect the superficial radial nerve and its branches. We carefully dissected out the radial artery and then proceeded with dissection deep to reach the distal radius. The brachioradialis was identified and released from the distal radius to allow for appropriate visualization. The pronator quadratus and periosteum were elevated in an ulnar direction off the radius as well. We were able to visualize a fracture line extending down the shaft of the radius involving the intermediate column. We were also able to identify the distal fracture fragment as well. The fracture site was cleaned out using a scalpel and curette. A reduction clamp was used to reduce this fracture line and two 3.5 mm Synthes screws, one 18 mm and one 20 mm, were placed perpendicular to this fracture line down the radial shaft. Medartis second generation volar distal radius plate was then applied first using K-wires. Fluoroscopy was used to check our plate position and we were happy with this. We also confirmed our distal radius reduction making sure that we had reduced the distal fragment and restored appropriate radial inclination and volar tilt which did appear to be near neutral. We were happy with this reduction. We proceeded to fixing the plate, first proximally, then distally. We used a total of 4 screws proximally and 5 screws distally. Fluoroscopy was used to verify screw and plate placement as well as our reduction. We were happy with this and proceeded to irrigate the wound. Both wounds were closed, the Spencer approach using subcutaneous 4-0 Vicryl suture followed by 4-0 nylon suture in a horizontal mattress fashion and the extended carpal tunnel incision was closed with 4-0 nylon in a horizontal mattress fashion. A sterile dressing was applied consisting of Betadine ointment, Adaptic, 4 x 4 gauze, plus ABD and Webril, and the patient was then placed in a thumb spica splint. The patient tolerated the procedure well, was extubated, and brought to the PACU in stable condition. ESTIMATED BLOOD LOSS 10 mL. INTRAOPERATIVE FLUID 800 mL. TOURNIQUET TIME 73 minutes at 280 mmHg. SPONGE, INSTRUMENT, AND NEEDLE COUNTS Correct x3. CONDITION ON DISCHARGE FROM THE OPERATING ROOM Stable. COMPLICATIONS None. CC: CE LOGAN RICHARD Electronically Authenticated and Edited by: Ce Logan MD On 07/17/2016 08:50 PM CDT Electronically Authenticated and Edited by: Ce Logan MD On 07/20/2016 06:53 PM CDT Electronically Authenticated and Edited by: Garrett Ray MD On 07/21/2016 12:53 PM CDT Ce Logan M.D. Garrett Ray M.D. [facility] #[id number] Editing MT: ADM TD: 07/17/2016 09:29 AM cc: Lisseth Sy M.D. * Op Note - Provider, MD Cameron - 07/16/2016 12:00 AM CDT Patient: EVAN HODGSON Reg No: [id number] U H #: [id number] Admit Dt.: 07/16/2016 : 1940 Pt Type: SDS Room No: Attending: Garrett Ray M.D. Surgeon: Garrett Ray M.D. Dictating: Garrett Ray M.D. Service Dt: 07/16/2016 OPERATIVE REPORT FACILITY ID: [facility] ADDENDUM SURGEON Garrett Ray MD ADDENDUM I participated in the espitia portions of this procedure and was otherwise immediately available. The fracture was intraarticular with 3+ fragments. Electronically Authenticated and Edited by: Garrett Ray MD On 08/04/2016 07:18 AM CDT Garrett Ray M.D. G:[facility] #[id number] Editing MT: TD: 08/01/2016 07:47 AM cc: Garrett Ray M.D. documented in this encounter Plan of Treatment Not on file documented as of this encounter Procedures Procedure Name Priority Date/Time Associated Diagnosis Comments GLUCOSE POC Routine Gen Lab 07/16/2016 4:56 PM CDT GLUCOSE POC Routine Gen Lab 07/16/2016 12:48 PM CDT PROTIME-INR STAT 07/16/2016 12:43 PM CDT documented in this encounter Results * Glucose POC (07/16/2016 4:56 PM CDT) Glucose, POC 139 70 - 199 mg/dL [facility] Blood specimen (specimen) 07/16/2016 4:56 PM CDT 07/16/2016 4:56 PM CDT us Garrett Ray MD POINT OF CARE TEST ORDER GEE Final Result Performing Organization Address City/[facility]/ZIP Co de Phone Number [facility] [place] [address] * Glucose POC (07/16/2016 12:48 PM CDT) Glucose, POC 90 70 - 199 mg/dL [facility] Blood specimen (specimen) 07/16/2016 12:48 PM CDT 07/16/2016 12:48 PM CDT us Garrett Ray MD POINT OF CARE TEST ORDER GEE Final Result Performing Organization Address City/[facility]/ZIP Co de Phone Number [facility] [place] [address] * (ABNORMAL) Protime-INR (07/16/2016 12:43 PM CDT) PT 32.0(H) 9.2 - 14.0 sec [facility] INR 2.75(H) 0.81 - 1.22 [facility] Comment: Interpretive Data Inpatient therapeutic ranges* Atrial fibrillation ?2.0-3.0 INR Venous thrombo-embolism ?2.0-3.0 INR Bioprosthetic heart valve ?* Mechanical heart valve, bileaflet or tilting disk,aortic position ? 2.0-3.0 INR All other,or bileaflet or tilting disk, in mitral position ? 2.5-3.5 INR *See the pharmacy resource directory (PHRED) for an updated copy of the Tool Book at http://[facility]/bjc/pharmacy.nsf Current Interpretive Data was last revised 2011. Blood specimen (specimen) 07/16/2016 12:43 PM CDT 07/16/2016 12:52 PM CDT us Garrett Ray MD LAB BLOOD ORDERABLES Fin al Result Performing Organization Address City/State/[facility] Co de Phone Number [facility] One [facility] Department [place] [address] documented in this encounter Visit Diagnoses Not on filedocumented in this encounter Care Teams Crab Picker Relationship Specialty Start Date End Date Wilber Cleaning Jr., MD [address] [place] [address] PCP - General 07/03/16 07/15/20 documented as of this encounter
--- OUTSIDE RECORDS SUMMARY | 2024-03-13 01:18 | XMS_ITS | Encounter Summary ---
Author Organization [facility] Address [address] 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 Aislinn Goldsmith, PERIOPERATIVE TECH 06/09/2019 06/09/2019 06/09/2019 4:20 PM C DT documented as of this encounter Care Teams Raw Scales Operator Relationship Specialty Start Date End Date Wilber Cleaning Jr., MD [address] [place] [address] PCP - General 07/03/16 07/15/20 Ryann Galdamez PA [address] [place] [address] PCP - General Cosmetic Account Coordinator 07/16/20 04/01/21 documented as of this encounter
--- OUTSIDE RECORDS SUMMARY | 2024-03-13 01:18 | XMS_ITS | Encounter Summary ---
Author Organization [facility] Address [address] [place] [address] Care Team Providers Care Side Sawyer Name Role Phone Hermila Calhoun MD, Wilber Martinez Primary Care Provider Ryann Galdmaez Primary Care Provider [phone]- [phone] Encounter Details Date Type Department Care Team (Late st Contact Info) Description 07/24/2017 Orders Only [facility] Health Information Management [address] [place] [address] Scanning, Provider Social History Tobacco Use Types Packs/Day Years Used Date Smoking Tobacco: Never AUDIT-C Answer Date Recorded Q1: [...] on file 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 Aislinn Goldsmith, BRAND DESIGNER 06/09/2019 06/09/2019 06/09/2019 4:20 PM C DT documented as of this encounter Care Teams Side Sawyer Relationship Specialty Start Date End Date Wilber Cleaning Jr., MD [address] [place] [address] PCP - General 07/03/16 07/15/20 Ryann Galdamez PA [address] [place] [address] PCP - General Rn Office 07/16/20 04/01/21 documented as of this encounter
--- OUTSIDE RECORDS SUMMARY | 2024-03-13 01:18 | XMS_ITS | Encounter Summary ---
Author Organization [facility] Address [address] [place] [address] Phone Care Team Providers Care Social Service Liaison Name Role Phone Hermila Calhoun MD, India Martinez Primary Care Provider Reason for Referral * (Routine) - Closed Specialty Diagnoses / Procedures Referred By Contac t Referred To Contact Diagnoses Paroxysmal A-fib (CMS/HCC) (HCC) Procedures ECG 12 lead Catarina Huerta MD Phone: tel: fax: [facility] (All Locations) Referral ID Status Reason Start Date Expiration Date Visits Re quested Visits Authorized [id number] Closed 11/25/2017 06/06/2019 1 1 Reason for Visit * Reason Comments Follow-up * Cardiology (Routine) - Closed Specialty Diagnoses / Procedures Referred By Contac t Referred To Contact Cardiology Diagnoses abstracted Appt Comment: 6M Procedures RETURN India Cleaning Jr., MD Phone: tel: fax: Catarina Huerta MD [address] [facility] [address] [place] [address] Phone: tel: fax: Referral ID Status Reason Start Date Expiration Date Visits Re quested Visits Authorized [id number] Closed 11/20/2017 01/20/2018 3 3 Encounter Details Date Type Department Care Team (Late st Contact Info) Description 11/25/2017 1:15 PM CDT Office Visit [facility] Cardiology [address] [facility] Medical Office Building [address] [place] [address] Catarina Huerta MD [address] [place] [address] Paroxysmal A-fib (CMS/HCC) (Primary Dx); Essential hypertension; Anticoagulated Social History Tobacco Use Types Packs/Day Years Used Date Smoking Tobacco: Never Smokeless Tobacco: Never Comments Unknown Sex and Gender Information Value Date Recorded Sex Assigned at Not on file 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[employer] Gender Identity Not on file Sexual Orientation Not on file documented as of this encounter Last Filed Vital Signs Vital Sign Reading Time Taken Comments Blood Pressure 132/76 11/25/2017 1:20 PM CDT Pulse 72 11/25/2017 1:20 PM CDT Temperature - - Respiratory Rate - - Oxygen Saturation 93% 11/25/2017 1:20 PM CDT Inhaled Oxygen Concentration - - Weight 92.1 kg (203 lb) 11/25/2017 1:20 PM CDT Height 157.5 cm (5' 2 ) 11/25/2017 1:20 PM CDT Body Mass Index 37.13 11/25/2017 1:20 PM CDT documented in this encounter Progress Notes * Catarina Huerta MD - 11/25/2017 12:00 AM CDT Date: 11/25/2017 INDIA CLEANING MD [address] [place], [place] [id number] Patient Name: EVAN HODGSON Date of : 1940 Date of Visit: 11/25/[address] Cleaning: I had the pleasure of seeing Evan Hodgson in Cardiology follow-up today. sHe is a very nice 77-year-old woman with paroxysmal atrial fibrillation which has been well controlled on p.o. sotalol. She is on warfarin for stroke prophylaxis and has had largely a quite stable INR. Evan has had no palpitations since I saw her last. She has been gaining weight and knows the portion control is an issue. She is not exercising. She denies chest pain or shortness of breath, orthopnea or PND, palpitations, or presyncope. PAST MEDICAL HISTORY: Unchanged, being notable for: 1. Hypothyroidism, on replacement. 2. Previous FUNK ablation of the thyroid. 3. Hypertension. 4. Dyslipidemia. 5. Depression. 6. Degenerative joint disease. 7. History of essential tremor. FAMILY HISTORY: Unchanged. SOCIAL HISTORY: Unchanged. REVIEW OF SYSTEMS: Unchanged. MEDICATIONS: 1. Fosamax 70 mg (just starting). 2. Alprazolam as needed. 3. Amlodipine 5 mg daily. 4. Calcium carbonate. 5. Cymbalta 30 mg daily. 6. Tricor 145 mg daily. 7. Hydrochlorothiazide 25 mg daily. 8. Linzess 72 mcg daily. 9. Losartan 100 mg daily. 10. Lovastatin 10 mg at bedtime. 11. Metformin 1000 mg daily. 12. Multivitamin. 13. Nystatin. 14. Triamcinolone. 15. Prilosec 20 mg daily. 16. Betapace 80 mg daily. 17. Warfarin. 18. Ambien at bedtime. PHYSICAL EXAMINATION: VITAL SIGNS: Weight of 203 pounds (this is up 5 pounds since May). Heart rate is 72. Blood pressure 132/76. SKIN: Without rash or lesion. HEENT: Unremarkable. NECK: Supple. LUNGS: Clear. CARDIAC: Shows no jugular venous distention. The PMI is not displaced. S1 and S2 are normal. There is no S3. ABDOMEN: Without organomegaly mass or tenderness. EXTREMITIES: She has no edema. DIAGNOSTIC IMPRESSIONS: 1. Paroxysmal atrial fibrillation. Stable and asymptomatic on p.o. sotalol. EKG today shows a normal QT interval. 2. Hypertension is well controlled. I will plan to see her back in follow-up in 6 months. Thank you for letting me participate in her care. Respectfully, ELECTRONICALLY SIGNED - 11/26/2017 11:06 AM Catarina Huerta M.D., F.A.C.C. decorative greens cutter /[facility] cc: INDIA CLEANING MD / / documented in this encounter Plan of Treatment Not on file documented as of this encounter Procedures Procedure Name Priority Date/Time Associated Diagnosis Comments ECG 12-LEAD Routine 11/25/2017 Paroxysmal A-fib (CMS/HCC) documented in this encounter Results * ECG 12 lead (11/25/2017) us Catarina Huerta MD ECG ORDERABLES Edited Resul t - Final documented in this encounter Visit Diagnoses Diagnosis Paroxysmal A-fib (CMS/HCC) (HCC)- Primary Essential hypertension Unspecified essential hypertension Anticoagulated Encounter for long-term (current) use of anticoagulants documented in this encounter Historical Medications * This list may reflect changes made after this encounter. linaclotide (LINZESS) 72 mcg capsule 72 mcg. 06/02/2018 nystatin-triamcinol one creamIndications:cu taneous candidiasis 11/10/201706/02 alendronate (FOSAMAX) 70 mg tablet 11/10/2017 09/07/2018 added in this encounter Care Teams Social Service Liaison Relationship Specialty Start Date End Date India Cleaning Jr., MD [address] [place] [address] PCP - General 07/03/16 07/15/20 documented as of this encounter
--- OUTSIDE RECORDS SUMMARY | 2024-03-13 01:18 | XMS_ITS | Encounter Summary ---
Author Organization [facility] Address [address] [place] [address] Phone Care Team Providers Care Manager Talent Management Name Role Phone Hermila Calhoun MD, Wilber Martinez Primary Care Provider Encounter Details Date Type Department Care Team (Latest Contact Info) Description 01/25/2018 Anticoagulation Telephone Call [facility] Cardiology [address] [facility] [address] [place] [address] Catarina Huerta MD [address] [facility] [address] [place] [address] Atrial fibrillation, unspecified type (CMS/HCC) Social History Tobacco Use Types Packs/Day Years Used Date Smoking Tobacco: Never Smokeless Tobacco: Never Comments Unknown Sex and Gender Information Value Date Recorded Sex Assigned at Not on file 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 She had been taking 2mg QD FORCE DEVELOPMENT SPECIALIST * Telephone Encounter - Apolonia Sinha RN - 01/25/2018 8:07 AM CST No change rechech 2 weeks thanks FORCE DEVELOPMENT SPECIALIST documented in this encounter Plan of Treatment Not on file documented as of this encounter Procedures Procedure Name Priority Date/Time Associated Diagnosis Comments PROTIME-INR Routine 01/22/2018 documented in this encounter Results * (ABNORMAL) Protime-INR (01/22/2018) INR 2.40(A) 0.9 - 1.1 EXTERNAL LAB Blood specimen (specimen) us Historical Provider LAB BLOOD ORDERABLES [place] Result EXTERNAL LAB documented in this encounter Visit Diagnoses Diagnosis Atrial fibrillation, unspecified type (HCC) documented in this encounter Care Teams Manager Talent Management Relationship Specialty Start Date End Date Wilber Cleaning Jr., MD [address] [place] [address] PCP - General 07/03/16 07/15/20 documented as of this encounter
--- OUTSIDE RECORDS SUMMARY | 2024-03-13 01:18 | XMS_ITS | Encounter Summary ---
Author Organization [facility] Address [address] [place] [address] Phone Care Team Providers Care Residential Roofer Helper Name Role Phone Hermila Calhoun MD, Wilber Martinez Primary Care Provider Encounter Details Date Type Department Care Team (Late st Contact Info) Description 09/22/2017 Telephone [facility] Cardiology [address] [facility] [address] 8th [place] [address] [place] [address] Catarina Huerta MD [address] [place], [place] [id number] Social History Tobacco Use Types Packs/Day Years Used Date Smoking Tobacco: Never Comments Unknown Sex and Gender Information Value Date Recorded Sex Assigned at Not on file 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 90 tablet 1 09/22/2017 12/09/2018 documented in this encounter Miscellaneous Notes * Telephone Encounter - Ingrid Barroso MA - 09/22/2017 9:10 AM CDT Sent to pharmacy * Telephone Encounter - Apolonia Sinha RN - 09/22/2017 8:45 AM CDT request * Telephone Encounter - Camden Rolle - 09/22/2017 8:34 AM CDT [place]: Warfarin 1mg 3 times a week 90 day supply [facility] [phone] documented in this encounter Plan of Treatment Not on file documented as of this encounter Visit Diagnoses Not on filedocumented in this encounter Discontinued Medications Medication Sig Discontinue Reason Start Date End Da te warfarin (COUMADIN) 1 mg tablet Take 1 tablet by mouth 3 (three) times a week. Reorder 05/22/2008 09/22/2017 documented as of this encounter Historical Medications * This list may reflect changes made after this encounter. warfarin (COUMADIN) 1 mg tablet Take 1 tablet by mouth 3 (three) times a week. 05/22/2008 09/22/2017 added in this encounter Care Teams Residential Roofer Helper Relationship Specialty Start Date End Date Wilber Cleaning Jr., MD [address] [place] [address] PCP - General 07/03/16 07/15/20 documented as of this encounter
--- OUTSIDE RECORDS SUMMARY | 2024-03-13 01:18 | XMS_ITS | Encounter Summary ---
Author Organization [facility] Address [address] [place] [address] Phone Care Team Providers Care Wireline Field Operator Name Role Phone Hermila Calhoun MD, Wilber Martinez Primary Care Provider Encounter Details Date Type Department Care Team (Latest Contact Info) Description 11/18/2017 Anticoagulation Telephone Call [facility] Cardiology [address] [facility] [address] [place] [address] Catarina Huerta MD [address] 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 * Telephone Encounter - Margarita Méndez RN - 11/18/2017 12:15 PM CDT No change, recheck 4 weeks. Please call ptYumiko cast documented in this encounter Plan of Treatment Not on file documented as of this encounter Visit Diagnoses Diagnosis Atrial fibrillation, unspecified type (HCC) documented in this encounter Care Teams Wireline Field Operator Relationship Specialty Start Date End Date Wilber Cleaning Jr., MD [address] [place] [address] PCP - General 07/03/16 07/15/20 documented as of this encounter
--- OUTSIDE RECORDS SUMMARY | 2024-03-13 01:18 | XMS_ITS | Encounter Summary ---
Author Organization [facility] Address [address] [place] [address] Phone Care Team Providers Care Protection Engineer Name Role Phone Hermila Calhoun MD, Wilber Martinez Primary Care Provider Reason for Visit * Reason Onset Date Comments Labs Only 10/19/2017 due for lipids a 2017 Encounter Details Date Type Department Care Team (Late st Contact Info) Description 10/19/2017 Telephone [facility] Cardiology [facility] Medical Office Building [address] [place] [address] Gail Redman, RMA Labs Only (due for lipids oct 2017) Social History Tobacco Use Types Packs/Day Years Used Date Smoking Tobacco: Never Comments Unknown Sex and Gender Information Value Date Recorded Sex Assigned at Not on file Legal Sex Female 4:20 AM RELATIONSHIP SPECIALIST Gender Identity Not on file Sexual Orientation Not on file documented as of this encounter Miscellaneous Notes * Telephone Encounter - Gail Redman MA - 10/20/2017 9:30 AM CDT WAS DONE 2 MONTHS AGO AT PCP OFFICE. SHE WILL HAVE THE RESULTS FAXED * Telephone Encounter - Gail Redman MA - 10/19/2017 11:21 AM CDT She is due for lipids this month. I LMOR that I will be sending an order to [facility] so she can have INR and lipid done in the same draw. She was made aware that there are 2 separate orders and that shewill need to tell the industrial technician this. documented in this encounter Plan of Treatment Scheduled Orders Name Type Priority Associated Diagnoses Orde r Schedule Lipid panel Lab Routine Dyslipidemia Expected: 10/19/2017, Expires: 10/19/2018 documented as of this encounter Visit Diagnoses Diagnosis Dyslipidemia- Primary Other and unspecified hyperlipidemia documented in this encounter Care Teams Protection Engineer Relationship Specialty Start Date End Date Wilber Cleaning Jr., MD [address] [place] [address] PCP - General 07/03/16 07/15/20 documented as of this encounter
--- OUTSIDE RECORDS SUMMARY | 2024-03-13 01:18 | XMS_ITS | Encounter Summary ---
Author Organization [facility] Address [address] [place] [address] Phone Care Team Providers Care Casino Floor Runner Name Role Phone Hermila Calhoun MD, Wilber Martinez Primary Care Provider Encounter Details Date Type Department Care Team (Latest Contact Info) Description 01/06/2018 Anticoagulation Telephone Call [facility] Cardiology [address] [facility] Medical Office [address] [place] [address] Catarina Huerta MD [address] [facility] [address] [place] [address] Atrial fibrillation, unspecified type (CMS/HCC) Social History Tobacco Use Types Packs/Day Years Used Date Smoking Tobacco: Never Smokeless Tobacco: Never Comments Unknown Sex and Gender Information Value Date Recorded Sex Assigned at Not on file 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 PLASTICS Gender Identity Not on file Sexual Orientation Not on file documented as of this encounter Miscellaneous Notes * Telephone Encounter - Gail Redman MA - 01/06/2018 2:28 PM CDT I spoke to the patient who verbalizes understanding of result and orders given. * Telephone Encounter - Apolonia Sinha RN - 01/06/2018 10:51 AM CDT No change recheck 1 week thanks documented in this encounter Plan of Treatment Not on file documented as of this encounter Visit Diagnoses Diagnosis Atrial fibrillation, unspecified type (HCC) documented in this encounter Care Teams Casino Floor Runner Relationship Specialty Start Date End Date Wilber Cleaning Jr., MD [address] [place] [address] PCP - General 07/03/16 07/15/20 documented as of this encounter
--- OUTSIDE RECORDS SUMMARY | 2024-03-13 01:18 | XMS_ITS | Encounter Summary ---
Author Organization [facility] Address [address] [facility] [address] [place] [address] Care Team Providers Care Neck Band Operator Name Role Phone Hermila Calhoun MD, Wilber Martinez Primary Care Provider Ryann Galdamez Primary Care Provider [phone] Ryann Galdamez Primary Care Provider [phone] Chris Mendes MD Unavailable Keli Orozco RN Unavailable Unavailable Alysa Newton RN Unavailable [phone] Cuba Larsen MD Primary Care Provider [phone] Keli Orozco RN Unavailable Unavailable Keli Orozco RN Unavailable Unavailable Tami Mcknight RN Unavailable Unavailab le Encounter Details Date Type Department Care Team (Late st Contact Info) Description 07/03/2016 Orders Only [facility] [address] [place] [address] Scanning, Provider Social History Tobacco Use Types Packs/Day Years Used Date Smoking Tobacco: Never Assessed Comments Unknown Sex and Gender Information Value Date Recorded Sex Assigned at Not on file Legal Sex Female 4:20 AM TUBE WINDER HAND Gender Identity Not on file Sexual Orientation Not on file documented as of this encounter Plan of Treatment Not on file documented as of this encounter Procedures Procedure Name Priority Date/Time Associated Diagnosis Comments SCAN - RADIOLOGY/IMAGING 07/03/2016 documented in this encounter Results * SCAN - RADIOLOGY/IMAGING (07/03/2016) Anatomical Region Laterality Modality Other us Provider Scanning Final Result documented in this encounter Visit Diagnoses Not on filedocumented in this encounter Additional Health Concerns Infection Onset Date Last Indicated Resolved Time COVID19 Comment:IP Review - pt afebrile, without URI signs/symptoms. Aislinn Goldsmith, ACUTE CARE CERTIFIED NURSING ASSISTANT 06/09/2019 06/09/2019 06/09/2019 4:20 PM C DT documented as of this encounter Care Teams Neck Band Operator Relationship Specialty Start Date End Date Wilber Cleaning Jr., MD [address] [place] [address] PCP - General 07/03/16 07/15/20 Ryann Galdamez PA [address] [place] [address] PCP - General Screen Making Technician 07/16/20 04/01/21 Ryann Galdamez PA [address] [place] [address] PCP - General Screen Making Technician 04/02/21 01/22/22 Cuba Larsen MD [address] [facility] [address] [place] [address] PCP - General Family Medicine 01/23/22 Chris Mendes MD [address] [place] [address] Referring Physician Cardiology 12/23/21 Keli Orozco, gas collection system operatorInter Fold Roll Cutter Cardiology 12/23/21 04/15/23 Alysa Newton, ARMANI [address] [facility] [address] [place] [address] Inter Fold Roll Cutter Cardiology 12/23/21 Keli Orozco, clerical transcriber Failure Coordinator 04/02/23 4 Keli Orozco, clerical transcriber Failure Coordinator Transplant 04/15/23 Tami Mcknight clerical transcriber Failure Coordinator Cardiology 09/14/23 documented as of this encounter
--- OUTSIDE RECORDS SUMMARY | 2024-03-13 01:18 | XMS_ITS | Encounter Summary ---
Author Organization [facility] Address [address] [place] [address] Phone Care Team Providers Care School Leader Name Role Phone Hermila Calhoun MD, Wilber Martinez Primary Care Provider Encounter Details Date Type Department Care Team (Latest Contact Info) Description 12/21/2017 Anticoagulation Telephone Call [facility] Cardiology [address] [facility] Medical Office [address] [place] [address] Catarina Huerta MD [address] [facility] [address] [place] [address] Atrial fibrillation, unspecified type (CMS/HCC) Social History Tobacco Use Types Packs/Day Years Used Date Smoking Tobacco: Never Smokeless Tobacco: Never Comments Unknown Sex and Gender Information Value Date Recorded Sex Assigned at Not on file Legal Sex Female 4:20 AM SPECIAL EDUCATION PARAPROFESSIONAL Gender Identity Not on file Sexual Orientation Not on file documented as of this encounter Miscellaneous Notes * Telephone Encounter - Margarita Méndez RN - 12/21/2017 2:29 PM CDT Gail Redman MA 1 hour ago (1:25 PM) Pt called back. She says she developed severe eye pain and is following with PCP and eye doctor to get a diagnosis. She has been taking tylenol daily for 2 weeks and an oral anti-inflamatory. The anti-inflammatory was started last Thursday and should finish by Thursday. She held coumadin last * Telephone Encounter - Ryann Quezada RN - 12/21/2017 1:34 PM CDT lisa patient * Telephone Encounter - Gail Redman MA - 12/21/2017 1:25 PM CDT Pt called back. She says she developed severe eye pain and is following with PCP and eye doctor to get a diagnosis. She has been taking tylenol daily for 2 weeks and an oral anti-inflamatory. The anti-inflammatory was started last Thursday and should finish by Thursday. She held coumadin last * Telephone Encounter - Gail Redman MA - 12/21/2017 1:16 PM CDT I left a message for the patient with result and orders. * Telephone Encounter - Margarita Méndez RN - 12/21/2017 11:02 AM CDT Please call pt. * Telephone Encounter - Margarita Méndez RN - 12/21/2017 10:59 AM CDT change to 3 mg Lorenz, Th, 2 mg x5, recheck 1 week. jf documented in this encounter Plan of Treatment Not on file documented as of this encounter Visit Diagnoses Diagnosis Atrial fibrillation, unspecified type (HCC) documented in this encounter Care Teams School Leader Relationship Specialty Start Date End Date Wilber Cleaning Jr., MD [address] [place] [address] PCP - General 07/03/16 07/15/20 documented as of this encounter
--- OUTSIDE RECORDS SUMMARY | 2024-03-13 01:18 | XMS_ITS | Encounter Summary ---
Author Organization [facility] Address [address] [place] [address] Phone Care Team Providers Care Log Buncher Name Role Phone Hermila Calhoun MD, Wilber Martinez Primary Care Provider Encounter Details Date Type Department Care Team (Latest Contact Info) Description 03/18/2018 Anticoagulation Telephone Call [facility] Cardiology [address] [facility] Medical Office Building [address] [place] [address] Catarina Huerta MD [address] [facility] [address] [place] [address] Atrial fibrillation, unspecified type (CMS/HCC) Social History Tobacco Use Types Packs/Day Years Used Date Smoking Tobacco: Never Smokeless Tobacco: Never Comments Unknown Sex and Gender Information Value Date Recorded Sex Assigned at Not on file Legal Sex Female 4:20 AM TESTER SEMICONDUCTOR PACKAGES Gender Identity Not on file Sexual Orientation Not on file documented as of this encounter Miscellaneous Notes * Addendum Note - Juan Manuel Fragoso MA - 03/18/2018 11:39 AM CSTAddended by: JUAN MANUEL FRAGOSO on: 03/18/2018 11:39 AM Modules accepted: Orders ER SEMICONDUCTOR PACKAGES * Telephone Encounter - Juan Manuel Fragoso MA - 03/18/2018 11:34 AM TESTER SEMICONDUCTOR PACKAGES I spoke to the patient who verbalizes understanding of result and orders given. She will be OOT from March to May. She has asked me to mail her a SO for [facility], which I have done. ER SEMICONDUCTOR PACKAGES ER SEMICONDUCTOR PACKAGES * Telephone Encounter - Apolonia Sinha RN - 03/18/2018 8:12 AM CST No change recheck 1 month ER SEMICONDUCTOR PACKAGES documented in this encounter Plan of Treatment Scheduled Orders Name Type Priority Associated Diagnoses Orde r Schedule Protime-INR Lab Routine Atrial fibrillation, unspecified type (CMS/HCC) 26 Occurrences starting 03/18/2018 until 09/15/2018, 8 completed documented as of this encounter Procedures Procedure Name Priority Date/Time Associated Diagnosis Comments PROTIME-INR Routine 08/18/2018 8:06 AM CDT Atrial fibrillation, unspecified type (CMS/HCC) PROTIME-INR Routine 08/11/2018 11:03 AM CDT Atrial fibrillation, unspecified type (CMS/HCC) PROTIME-INR Routine 08/03/2018 10:33 AM CDT Atrial fibrillation, unspecified type (CMS/HCC) PROTIME-INR Routine 07/08/2018 8:15 AM CDT Atrial fibrillation, unspecified type (CMS/HCC) PROTIME-INR Routine 06/17/2018 9:54 AM CDT Atrial fibrillation, unspecified type (CMS/HCC) PROTIME-INR Routine 06/09/2018 11:15 AM CDT Atrial fibrillation, unspecified type (CMS/HCC) PROTIME-INR Routine 05/31/2018 1:22 PM CDT Atrial fibrillation, unspecified type (CMS/HCC) PROTIME-INR Routine 03/30/2018 10:01 AM TESTER SEMICONDUCTOR PACKAGES Atrial fibrillation, unspecified type (CMS/HCC) PROTIME-INR Routine 03/17/2018 documented in this encounter Results * (ABNORMAL) Protime-INR (08/18/2018 8:06 AM CDT) INR 2.6(H) [facility] - Comment: Reference Range ? 0.9-1.1 Moderate-intensity Warfarin Therapy 2.0-3.0 Higher-intensity Warfarin Therapy ?? 3.0-4.0 PT 26.1(H) 9.0 - 11.5 sec [facility] - Comment: For more information on this test, go to: http://education.AcademixDirect/faq/XXO876 Blood specimen (specimen) 08/18/2018 8:06 AM CDT 08/18/2018 8:07 AM CDT Narrative Resulting Agency Comment Performing Organization Information: ?Site ID: ?Name: [facility] ?Address: Critical access hospital Administration [place] [address] ?Director: Christian Wheeler us Catarina Huerta MD LAB BLOOD ORDERABLES Final R esult [facility] - [place] * (ABNORMAL) Protime-INR (08/11/2018 11:03 AM CDT) INR 2.2(H) [facility] - Comment: Reference Range ? 0.9-1.1 Moderate-intensity Warfarin Therapy 2.0-3.0 Higher-intensity Warfarin Therapy ?? 3.0-4.0 PT 22.7(H) 9.0 - 11.5 sec [facility] [place] Comment: For more information on this test, go to: http://Soflow.AcademixDirect/faq/RLY054 Blood specimen (specimen) 08/11/2018 11:03 AM CDT 08/11/2018 11:03 AM CDT Narrative Resulting Agency Comment Performing Organization Information: ?Site ID: [place] ?Name: [facility] ?Address: Critical access [place] [address] ?Director: Christian Wheeler Catarina Huerta MD LAB BLOOD ORDERABLES Final R esult Performing Organization Address [facility] Co de Phone Number [facility] - [place], [place] * (ABNORMAL) Protime-INR (08/03/2018 10:33 AM CDT) INR 1.9(H) [facility] [place] Comment: Reference Range ? 0.9-1.1 Moderate-intensity Warfarin Therapy 2.0-3.0 Higher-intensity Warfarin Therapy ?? 3.0-4.0 PT 19.4(H) 9.0 - 11.5 sec [facility] [place] Comment: For more information on this test, go to: http://Soflow.AcademixDirect/faq/ZFB022 Blood specimen (specimen) 08/03/2018 10:33 AM CDT 08/03/2018 10:33 AM CDT Narrative Resulting Agency Comment Performing Organization Information: ?Site ID: [place] ?Name: [facility] ?Address: Critical access hospital Administration [place] [address] ?Director: Christian Wheeler Catarina Huerta MD LAB BLOOD ORDERABLES Final R esult Performing Organization Address [facility] Co de Phone Number [facility] - [place], [place] * (ABNORMAL) Protime-INR (07/08/2018 8:15 AM CDT) INR 2.4(H) [facility] - Comment: Reference Range ? 0.9-1.1 Moderate-intensity Warfarin Therapy 2.0-3.0 Higher-intensity Warfarin Therapy ?? 3.0-4.0 PT 24.5(H) 9.0 - 11.5 sec [facility] - Comment: For more information on this test, go to: http://Soflow.AcademixDirect/faq/BVT813 Blood specimen (specimen) 07/08/2018 8:15 AM CDT 07/08/2018 8:16 AM CDT Narrative Resulting Agency Comment Performing Organization Information: ?Site ID: ?Name: [facility] ?Address: Critical [place] [address] ?Director: Christian Wheeler us Catarina Huerta MD LAB BLOOD ORDERABLES Final R esult [facility] - [place], [place] * (ABNORMAL) Protime-INR (06/17/2018 9:54 AM CDT) INR 2.8(H) [facility] - [place] Comment: Reference Range ? 0.9-1.1 Moderate-intensity Warfarin Therapy 2.0-3.0 Higher-intensity Warfarin Therapy ?? 3.0-4.0 PT 27.1(H) 9.0 - 11.5 sec [facility] [place] Comment: For more information on this test, go to: http://Soflow.AcademixDirect/faq/MXD858 Blood specimen (specimen) 06/17/2018 9:54 AM CDT 06/17/2018 9:55 AM CDT Narrative Resulting Agency Comment Performing Organization Information: ?Site ID: JAREN ?Name: [facility] ?Address: [address] [address] ?Director: Darryl Keys D.O. MPH Catarina Huerta MD LAB BLOOD ORDERABLES Final R esult Performing Organization Address [facility] Co de Phone Number [facility] [place] * (ABNORMAL) Protime-INR (06/09/2018 11:15 AM CDT) INR 2.4(H) [facility] - [place] Comment: Reference Range ? 0.9-1.1 Moderate-intensity Warfarin Therapy 2.0-3.0 Higher-intensity Warfarin Therapy ?? 3.0-4.0 PT 23.6(H) 9.0 - 11.5 sec [facility] - [place] Comment: For more information on this test, go to: http://education.AcademixDirect/faq/RXQ451 Blood specimen (specimen) 06/09/2018 11:15 AM CDT 06/09/2018 11:15 AM CDT Narrative Resulting Agency Comment Performing Organization Information: ?Site ID: JAREN ?Name: [facility] ?Address: [facility] [place] [address] ?Director: Darryl Keys D.O. MPH us Catarina Huerta MD LAB BLOOD ORDERABLES Final R esult Performing Organization Address [facility] Co de Phone Number JAREN Guevara * (ABNORMAL) Protime-INR (05/31/2018 1:22 PM CDT) INR 1.8(H) [facility] - [place] Comment: Reference Range ? 0.9-1.1 Moderate-intensity Warfarin Therapy 2.0-3.0 Higher-intensity Warfarin Therapy ?? 3.0-4.0 PT 18.1(H) 9.0 - 11.5 sec [facility] - [place] Comment: For more information on this test, go to: http://Sendio/faq/GGQ437 Blood specimen (specimen) 05/31/2018 1:22 PM CDT 05/31/2018 1:23 PM CDT Narrative Resulting Agency Comment Performing Organization Information: ?Site ID: JAREN ?Name: [facility] ?Address: [address] [address] ?Director: Darryl Keys D.O. MPH Catarina Huerta MD LAB BLOOD ORDERABLES Final R esult [facility] - [place] * (ABNORMAL) Protime-INR (03/30/2018 10:01 AM TESTER SEMICONDUCTOR PACKAGES) INR 3.9(H) [facility] - [place] Comment: Reference Range ? 0.9-1.1 Moderate-intensity Warfarin Therapy 2.0-3.0 Higher-intensity Warfarin Therapy ?? 3.0-4.0 PT 37.3(H) 9.0 - 11.5 sec [facility] - [place] Comment: For more information on this test, go to: http://Soflow.AcademixDirect/faq/EEM959 Blood specimen (specimen) 03/30/2018 10:01 AM TESTER SEMICONDUCTOR PACKAGES 03/30/2018 10:02 AM TESTER SEMICONDUCTOR PACKAGES Narrative [facility] - 03/31/2018 6:01 AM TESTER SEMICONDUCTOR PACKAGES FASTING:NO FASTING: NO Resulting Agency Comment Performing Organization Information: ?Site ID: JAREN ?Name: [facility] ?Address: [address] [address] ?Director: Darryl Keys D.O. MPH Catarina Huerta MD LAB BLOOD ORDERABLES Final R esult [facility] - [place] * (ABNORMAL) Protime-INR (03/17/2018) INR 2.30(A) 0.9 - 1.1 EXTERNAL LAB Blood specimen (specimen) Historical Provider LAB BLOOD ORDERABLES Sri l Result EXTERNAL LAB documented in this encounter Visit Diagnoses Diagnosis Atrial fibrillation, unspecified type (HCC) documented in this encounter Care Teams Log Buncher Relationship Specialty Start Date End Date Wilber Cleaning Jr., MD [address] [place] [address] PCP - General 07/03/16 07/15/20 documented as of this encounter
--- OUTSIDE RECORDS SUMMARY | 2024-03-13 01:18 | XMS_ITS | Encounter Summary ---
Author Organization [facility] Address [address] [place] [address] Phone Care Team Providers Care Soft Water Mechanic Name Role Phone Hermila Calhoun MD, Wilber Martinez Primary Care Provider Encounter Details Date Type Department Care Team (Latest Contact Info) Description 08/18/2017 Anticoagulation Visit [facility] Cardiology [facility] Medical Office Building [address] [place] [phone] Catarina Huerta MD [facility] [address] [place] [address] Atrial fibrillation, unspecified type (CMS/HCC) Social History Tobacco Use Types Packs/Day Years Used Date Smoking Tobacco: Never Comments Unknown Sex and Gender Information Value Date Recorded Sex Assigned at Not on file Legal Sex Female 4:20 AM MEDICAL OFFICE ASSISTANT INSTRUCTOR Gender Identity Not on file Sexual Orientation Not on file documented as of this encounter Progress Notes * Gail Redman MA - 08/18/2017 2:42 PM CDT Called pt and spoke briefly, but was disconnected. LMOR FOR PT WITH RESULT AND ORDERS. documented in this encounter Plan of Treatment Not on file documented as of this encounter Procedures Procedure Name Priority Date/Time Associated Diagnosis Comments PROTIME-INR Routine 08/14/2017 documented in this encounter Results * (ABNORMAL) Protime-INR (08/14/2017) INR 2.10(A) 0.9 - 1.1 [facility] Comment:verbal results from [facility] Blood specimen (specimen) us Catarina Huerta MD LAB BLOOD ORDERABLES Final R esult [facility] documented in this encounter Visit Diagnoses Diagnosis Atrial fibrillation, unspecified type (HCC) documented in this encounter Care Teams Soft Water Mechanic Relationship Specialty Start Date End Date Wilber Cleaning Jr., MD [address] [place] [address] PCP - General 07/03/16 07/15/20 documented as of this encounter
--- OUTSIDE RECORDS SUMMARY | 2024-03-13 01:18 | XMS_ITS | Encounter Summary ---
Author Organization [facility] Address [address] [facility] [address] [place] [address] Care Team Providers Care Special Effects Artist Name Role Phone Hermila Calhoun MD, Wilber Martinez Primary Care Provider Ryann Galdamez Primary Care Provider [phone] Ryann Galdamez Primary Care Provider [phone] Chris Mendes MD Unavailable [phone] Keli Orozco RN Unavailable Unavailable Alysa Newton RN Unavailable [phone] Cuba Larsen MD Primary Care Provider [phone] Keli Orozco RN Unavailable Unavailable Keli Orozco RN Unavailable Unavailable Tami Mcknight RN Unavailable Unavailab le Encounter Details Date Type Department Care Team (Late st Contact Info) Description 10/17/[address] [facility] Health Information Management [address] [place] [address] Scanning, Provider Social History Tobacco Use Types Packs/Day Years Used Date Smoking Tobacco: Never Assessed Comments Unknown Sex and Gender Information Value Date Recorded Sex Assigned at Not on file Legal Sex Female 4:20 AM ISOBUTYLENE OPERATOR CHIEF Gender Identity Not on file Sexual Orientation Not on file documented as of this encounter Plan of Treatment Not on file documented as of this encounter Procedures Procedure Name Priority Date/Time Associated Diagnosis Comments SCAN - LABS 10/17/2015 documented in this encounter Results * SCAN - LABS (10/17/2015) us Provider Scanning Final Result documented in this encounter Visit Diagnoses Not on filedocumented in this encounter Additional Health Concerns Infection Onset Date Last Indicated Resolved Time COVID19 Comment:IP Review - pt afebrile, without URI signs/symptoms. Aislinn Goldsmith, BOTTLE INSPECTOR 06/09/2019 06/09/2019 06/09/2019 4:20 PM C DT documented as of this encounter Care Teams Special Effects Artist Relationship Specialty Start Date End Date Wilber Cleaning Jr., MD [address] [place] [address] PCP - General 07/03/16 07/15/20 Ryann Galdamez PA [address] [place] [address] PCP - General Fingernail Sculpturer 07/16/20 04/01/21 Ryann Galdamez PA [address] [place] [address] PCP - General Fingernail Sculpturer 04/02/21 01/22/22 Cuba Larsen MD [address] [address] PCP - General Family Medicine 01/23/22 Chris Mendes MD [address] [place] [address] Referring Physician Cardiology 12/23/21 Keli Orozco, rn homecareWindows Server Administrator Cardiology 12/23/21 04/15/23 Alysa Newton, RN [address] [address] Windows Server Administrator Cardiology 12/23/21 Keli Orozco, installation helper Failure Coordinator 04/02/23 4 Keli Orozco, installation helper Failure Coordinator Transplant 04/15/23 Tami Mcknight installation helper Failure Coordinator Cardiology 09/14/23 documented as of this encounter
--- OUTSIDE RECORDS SUMMARY | 2024-03-13 01:18 | XMS_ITS | Encounter Summary ---
Author Organization [facility] Address [address] [place] [address] Phone Care Team Providers Care Paperhanger And Painter Name Role Phone Hermila Calhoun MD, Wilber Martinez Primary Care Provider Encounter Details Date Type Department Care Team (Late st Contact Info) Description 08/14/2017 Orders Only [facility] Cardiology [address] [facility] Medical Office Building [address] [phone] Catarina Huerta MD [address] [facility] [address] [id number] Social History Tobacco Use Types Packs/Day Years Used Date Smoking Tobacco: Never Comments Unknown Sex and Gender Information Value Date Recorded Sex Assigned at Not on file 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 0.9-1.1 Moderate-intensity Warfarin Therapy 2.0-3.0 Higher-intensity Warfarin Therapy ?? 3.0-4.0 PT 25.5(H) 9.0 - 11.5 sec [facility] Comment: For more information on this test, go to: http://OpenCounter.Analogix Semiconductor/faq/MHC457 09/02/2017 9:11 AM CDT 09/02/2017 9:12 AM CDT Narrative [facility] - 09/03/2017 5:00 AM CDT FASTING:NO FASTING: NO Resulting Agency Comment Performing Organization Information: ?Site ID: [place] ?Name: [facility] ?Address: [address] [place] [id number] ?Director: Darryl Keys D.O., MPH us Catarina Huerta MD LAB BLOOD ORDERABLES Final R esult [place], [place] * (ABNORMAL) Protime-INR (08/14/2017 10:23 AM CDT) INR 2.1(H) [facility] Comment: Reference Range ? 0.9-1.1 Moderate-intensity Warfarin Therapy 2.0-3.0 Higher-intensity Warfarin Therapy ?? 3.0-4.0 PT 22.9(H) 9.0 - 11.5 sec [facility] Comment: For more information on this test, go to: http://OpenCounter.Analogix Semiconductor/faq/[email or web address] 08/14/2017 10:2 3 AM CDT 08/14/2017 10:23 AM CDT Narrative [facility] - 08/15/2017 5:07 AM CDT FASTING:NO FASTING: NO Resulting Agency Comment Performing Organization Information: ?Site ID: JAREN ?Name: [facility] ?Address: [address] [address] ?Director: Darryl Keys D.O., MPH us Catarina Huerta MD LAB BLOOD ORDERABLES Final R esult [facility] [place] documented in this encounter Visit Diagnoses Not on filedocumented in this encounter Care Teams Paperhanger And Painter Relationship Specialty Start Date End Date Wilber Cleaning Jr., MD [address] [place] [address] PCP - General 07/03/16 07/15/20 documented as of this encounter
--- OUTSIDE RECORDS SUMMARY | 2024-03-13 01:18 | XMS_ITS | Encounter Summary ---
Author Organization [facility] Address [address] [place] [address] Phone Care Team Providers Care Driver Material Handler Name Role Phone Hermila Calhoun MD, Wilber Martinez Primary Care Provider Encounter Details Date Type Department Care Team (Latest Contact Info) Description 12/30/2017 Anticoagulation Telephone Call [facility] Cardiology [address] [facility] Medical Office Building [address] [place] [address] Catarina Huerta MD [facility] [address] [place] [address] Atrial fibrillation, unspecified type (CMS/HCC) Social History Tobacco Use Types Packs/Day Years Used Date Smoking Tobacco: Never Smokeless Tobacco: Never Comments Unknown Sex and Gender Information Value Date Recorded Sex Assigned at Not on file 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 Change to 1 mg alt 2 mg and recheck 1 week. Pt reports she has been taking a lot of tylenol and steroid eye gtts for inflammation of the eye. * Telephone Encounter - Alise Anderson - 12/30/2017 11:12 AM CDT DEANNA RET CALL * Telephone Encounter - Margarita Méndez RN - 12/30/2017 10:31 AM CDT LMOR for pt to call after receiving message that she had called back. * Telephone Encounter - Yasmin Soto - 12/30/2017 10:05 AM CDT Deanna Pt returning call * Telephone Encounter - Margarita Méndez RN - 12/30/2017 9:13 AM CDT LMOR for pt to call. documented in this encounter Plan of Treatment Not on file documented as of this encounter Visit Diagnoses Diagnosis Atrial fibrillation, unspecified type (HCC) documented in this encounter Care Teams Driver Material Handler Relationship Specialty Start Date End Date Wilber Cleaning Jr., MD [address] [place] [address] PCP - General 07/03/16 07/15/20 documented as of this encounter
--- OUTSIDE RECORDS SUMMARY | 2024-03-13 01:18 | XMS_ITS | Encounter Summary ---
Author Organization [facility] Address [address] [place] [address] Phone Care Team Providers Care Director Camp Name Role Phone Hermila Calhoun MD, Wilber Martinez Primary Care Provider Encounter Details Date Type Department Care Team (Late st Contact Info) Description 10/27/[address] 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 Catarina Huerta MD [facility] [place] ?? Lipids are ok 10/[address] Huerta has reviewed lipid labwork from July. No change in plan of care atthis time. documented in this encounter Plan of Treatment Not on file documented as of this encounter Visit Diagnoses Not on filedocumented in this encounter Care Teams Director Camp Relationship Specialty Start Date End Date Wilber Cleaning Jr., MD [facility] [place] [address] PCP - General 07/03/16 07/15/20 documented as of this encounter
--- OUTSIDE RECORDS SUMMARY | 2024-03-13 01:18 | XMS_ITS | Encounter Summary ---
Author Organization [facility] Address [address] [place] [address] Phone Care Team Providers Care Supervisor Receiving And Processing Name Role Phone Hermila Calhoun MD, Wilber Martinez Primary Care Provider Encounter Details Date Type Department Care Team (Latest Contact Info) Description 09/03/2017 Anticoagulation Visit [facility] Cardiology [facility] Medical Office Building [address] [place] [address] Catarina Huerta MD [facility] [address] [place] [address] Atrial fibrillation, unspecified type (CMS/HCC) Social History Tobacco Use Types Packs/Day Years Used Date Smoking Tobacco: Never Comments Unknown Sex and Gender Information Value Date Recorded Sex Assigned at Not on file 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 documented in this encounter Plan of Treatment Not on file documented as of this encounter Procedures Procedure Name Priority Date/Time Associated Diagnosis Comments PROTIME-INR Routine 09/02/2017 documented in this encounter Results * (ABNORMAL) Protime-INR (09/02/2017) INR 2.40(A) 0.9 - 1.1 EXTERNAL LAB Blood specimen (specimen) us Historical Provider LAB BLOOD ORDERABLES Sri [place] Result EXTERNAL LAB documented in this encounter Visit Diagnoses Diagnosis Atrial fibrillation, unspecified type (HCC) documented in this encounter Care Teams Supervisor Receiving And Processing Relationship Specialty Start Date End Date Wilber Cleaning Jr., MD [address] [place] [address] PCP - General 07/03/16 07/15/20 documented as of this encounter
--- OUTSIDE RECORDS SUMMARY | 2024-03-13 01:18 | XMS_ITS | Encounter Summary ---
Author Organization [facility] Address [address] [place] [address] Care Team Providers Care Hide Examiner Name Role Phone Hermila Calhoun MD, Wilber Martinez Primary Care Provider Ryann Galdamez Primary Care Provider [phone] Ryann Galdamez Primary Care Provider [phone] Chris Mendes MD Unavailable [phone] Keli Orozco RN Unavailable Unavailable Alysa Newton RN Unavailable [phone] Cuba Larsen MD Primary Care Provider [phone] Keli Orozco RN Unavailable Unavailable Keli Orozco RN Unavailable Unavailable Tami Mcknight RN Unavailable Unavailab le Encounter Details Date Type Department Care Team (Late st Contact Info) Description 08/04/2014 Orders Only [facility] [address] [place] [address] Scanning, Provider Social History Tobacco Use Types Packs/Day Years Used Date Smoking Tobacco: Never Assessed Comments Unknown Sex and Gender Information Value Date Recorded Sex Assigned at Not on file 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 Sex Female 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 Aislinn Goldsmith, STRAIGHT PIN MAKING MACHINE OPERATOR 06/09/2019 06/09/2019 06/09/2019 4:20 PM C DT documented as of this encounter Care Teams Hide Examiner Relationship Specialty Start Date End Date Wilber Cleaning Jr., MD [address] [place] [address] PCP - General 07/03/16 07/15/20 Ryann Galdamez PA [address] [place] [address] PCP - General Education Managers 07/16/20 04/01/21 Ryann Galdamez PA [address] [place] [address] PCP - General Education Managers 04/02/21 01/22/22 Cuba Larsen MD [address] [address] PCP - General Family Medicine 01/23/22 Chris Mendes MD [address] [place] [address] Referring Physician Cardiology 12/23/21 Keli Orozco, felt hangerStage Electrician Helper Cardiology 12/23/21 04/15/23 Alysa Newton, RN [address] [address] Stage Electrician Helper Cardiology 12/23/21 Keli Orozco, deck worker Failure Coordinator 04/02/23 4 Keli Orozco, deck worker Failure Coordinator Transplant 04/15/23 Tami Mcknight deck worker Failure Coordinator Cardiology 09/14/23 documented as of this encounter
--- OUTSIDE RECORDS SUMMARY | 2024-03-13 01:18 | XMS_ITS | Encounter Summary ---
Author Organization [facility] Address [address] [place] [address] Phone Care Team Providers Care Technical Manager Name Role Phone Hermila Calhoun MD, Wilber Martinez Primary Care Provider Reason for Visit * Reason Onset Date Comments Anticoagulation 08/18/2017 Encounter Details Date Type Department Care Team (Late st Contact Info) Description 08/18/2017 Telephone [facility] [address] Office [address] [place] [id number] Catarina Huerta MD [address] [id number] Anticoagulation Social History Tobacco Use Types Packs/Day Years Used Date Smoking Tobacco: Never Comments Unknown Sex and Gender Information Value Date Recorded Sex Assigned at Not on file Legal Sex Female 4:20 AM MANAGER ANDROID Gender Identity Not on file Sexual Orientation Not on file documented as of this encounter Miscellaneous Notes * Telephone Encounter - Gail Redman MA - 08/18/2017 2:40 PM CDT PT REPORTS INR WAS DONE 08/14 AT [facility]. I WILL CALL [facility] AND GET A VERBAL RESULT INR was 2.1 on 08/14. Documented on flowsheet. documented in this encounter Plan of Treatment Not on file documented as of this encounter Visit Diagnoses Not on filedocumented in this encounter Care Teams Technical Manager Relationship Specialty Start Date End Date Wilber Cleaning Jr., MD [address] [place] [address] PCP - General 07/03/16 07/15/20 documented as of this encounter
--- OUTSIDE RECORDS SUMMARY | 2024-03-13 01:18 | XMS_ITS | Encounter Summary ---
Author Organization 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 Aislinn Goldsmith, CORRESPONDENCE SCHOOL INSTRUCTOR 06/09/2019 06/09/2019 06/09/2019 4:20 PM C DT documented as of this encounter Care Teams Jewish Thought Professor Relationship Specialty Start Date End Date Wilber Cleaning Jr., MD [address] [place] [address] PCP - General 07/03/16 07/15/20 Ryann Galdamez PA [address] [place] [address] PCP - General Account Advisor 07/16/20 04/01/21 documented as of this encounter
--- OUTSIDE RECORDS SUMMARY | 2024-03-13 01:18 | XMS_ITS | Encounter Summary ---
Author Organization [facility] Address [address] [place] [address] Phone Care Team Providers Care Support Engineer Name Role Phone Hermila Calhoun MD, Wilber Martinez Primary Care Provider Encounter Details Date Type Department Care Team (Latest Contact Info) Description 10/20/2017 Anticoagulation Telephone Call [facility] Cardiology [address] [facility] [address] [place] [address] Catarina Huerta MD [address] [facility] [address] [place] [address] Atrial fibrillation, unspecified type (CMS/HCC) Social History Tobacco Use Types Packs/Day Years Used Date Smoking Tobacco: Never Comments Unknown Sex and Gender Information Value Date Recorded Sex Assigned at Not on file 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 * Telephone Encounter - Apolonia Sinha RN - 10/20/2017 8:24 AM CDT No change recheck 1 month documented in this encounter Plan of Treatment Not on file documented as of this encounter Visit Diagnoses Diagnosis Atrial fibrillation, unspecified type (HCC) documented in this encounter Care Teams Support Engineer Relationship Specialty Start Date End Date Wilber Cleaning Jr., MD [address] [place] [address] PCP - General 07/03/16 07/15/20 documented as of this encounter
--- OUTSIDE RECORDS SUMMARY | 2024-03-13 01:18 | XMS_ITS | Encounter Summary ---
Author Organization [facility] Address [address] [place] [address] Care Team Providers Care Job Specification Writer Name Role Phone Hermila Calhoun MD, Wilber Martinez Primary Care Provider Ryann Galdamez Primary Care Provider [phone] Ryann Galdamez Primary Care Provider [phone] Chris Mendes MD Unavailable [phone] Keli Orozco RN Unavailable Unavailable Alysa Newton RN Unavailable [phone] Cuba Larsen MD Primary Care Provider [phone] Keli Orozco RN Unavailable Unavailable Keli Orozco RN Unavailable Unavailable Tami Mcknight RN Unavailable Unavailab le Encounter Details Date Type Department Care Team (Late st Contact Info) Description 02/01/2016 Orders Only [facility] [place] Health Information Management [address] [place] [address] Scanning, Provider Social History Tobacco Use Types Packs/Day Years Used Date Smoking Tobacco: Never Assessed Comments Unknown Sex and Gender Information Value Date Recorded Sex Assigned at Not on file 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 Sex Female 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 Aislinn Goldsmith, HEALTH SCREENER 06/09/2019 06/09/2019 06/09/2019 4:20 PM C DT documented as of this encounter Care Teams Job Specification Writer Relationship Specialty Start Date End Date Wilber Cleaning Jr., MD [address] [place] [address] PCP - General 07/03/16 07/15/20 Ryann Galdamez PA [address] [place] [address] PCP - General Social Sciences Research Scientist 07/16/20 04/01/21 Ryann Galdamez PA [address] [place] [address] PCP - General Social Sciences Research Scientist 04/02/21 01/22/22 Cuba Larsen MD [address] [address] PCP - General Family Medicine 01/23/22 Chris Mendes MD [address] [place] [address] Referring Physician Cardiology 12/23/21 Keli Orozco, newspaper copy editorPlush Finisher Cardiology 12/23/21 04/15/23 Alysa Newton, RN [address] [address] Plush Finisher Cardiology 12/23/21 Keli Orozco, lpn home health Failure Coordinator 04/02/23 4 Keli Orozco, lpn home health Failure Coordinator Transplant 04/15/23 Tami Mcknight lpn home health Failure Coordinator Cardiology 09/14/23 documented as of this encounter
--- OUTSIDE RECORDS SUMMARY | 2024-03-13 01:18 | XMS_ITS | Encounter Summary ---
Author Organization [facility] Address [address] [place] [address] Care Team Providers Care Audio Experience Expert Name Role Phone Hermila Calhoun MD, Wilber Martinez Primary Care Provider Ryann Galdamez Primary Care Provider [phone] Encounter Details Date Type Department Care Team (Late st Contact Info) Description 09/03/2017 Orders Only [facility] [place] [address] [place] [address] Scanning, Provider Social History Tobacco Use Types [...] on file Legal Sex Female 4:20 AM NEUROPSYCHOLOGY DIRECTOR Gender Identity Not on file Sexual [...] Date/Time Associated Diagnosis Comments SCAN - RADIOLOGY/IMAGING 09/03/2017 documented in this encounter Results * SCAN - RADIOLOGY/IMAGING (09/03/2017) Anatomical Region Laterality Modality Other us Provider Scanning Final Result documented in this encounter Visit Diagnoses Not on filedocumented in this encounter Additional Health Concerns Infection Onset Date Last Indicated Resolved Time COVID19 Comment:IP Review - pt afebrile, without URI signs/symptoms. Aislinn Goldsmith, LOADING UNIT TOOL SETTER 06/09/2019 06/09/2019 06/09/2019 4:20 PM C DT documented as of this encounter Care Teams Audio Experience Expert Relationship Specialty Start Date End Date Wilber Cleaning Jr., MD [address] [place] [address] PCP - General 07/03/16 07/15/20 Ryann Galdamez PA [address] [place] [address] PCP - General Glazier Artist 07/16/20 04/01/21 documented as of this encounter
--- OUTSIDE RECORDS SUMMARY | 2024-03-13 01:18 | XMS_ITS | Encounter Summary ---
Author Organization [facility] Address [address] [place] [address] Phone Care Team Providers Care Rotary Peel Oven Tender Name Role Phone Hermila Calhoun MD, Wilber Martinez Primary Care Provider Encounter Details Date Type Department Care Team (Late st Contact Info) Description 11/11/2017 Orders Only [facility] Cardiology [address] [facility] [address] [place] [address] Oanh Garcia Social History Tobacco Use Types Packs/Day Years Used Date Smoking Tobacco: Never Comments Unknown Sex and Gender Information Value Date Recorded Sex Assigned at Not on file 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 calcium carbonate-vitamin D3 (CALCIUM+D) 400-133.3 mg-unit tablet daily. [address] (CYMBALTA) 30 mg capsule Take 60 mg by mouth daily 09/30/2017 0 losartan (COZAAR) 100 mg tablet TAKE ONE TABLET BY MOUTH ONCE DAILY 04/10/2009 8 metFORMIN (GLUCOPHAGE) 1,000 mg tablet Take one tablet once daily at bedtime 0 multivitamin tabletIndications:Jessika min Deficiency Prevention daily. 9 omeprazole (PriLOSEC) 20 mg capsule daily. Take 3 times a week 9 sotalol (BETAPACE) 80 mg tablet take one tablet by mouth twice daily 03/06/2011 9 fenofibrate nanocrystallized (TRICOR) 145 mg tablet daily. 9 ALPRAZolam (XANAX) 0.25 mg tablet Take 0.25 mg by mouth 3 (three) times a day as needed 0 zolpidem (AMBIEN) 5 mg tabletIndications:Slee p-Onset Insomnia Take 5 mg by mouth nightly. at bedtime. 1 09/16/2017 0 added in this encounter Care Teams Rotary Peel Oven Tender Relationship Specialty Start Date End Date Wilber Cleaning Jr., MD [facility] [place] [address] PCP - General 07/03/16 07/15/20 documented as of this encounter
--- OUTSIDE RECORDS SUMMARY | 2024-03-13 01:18 | XMS_ITS | Encounter Summary ---
Author Organization [facility] Address [address] [place] [address] Phone Care Team Providers Care Micrographics Services Supervisor Name Role Phone Hermila Calhoun MD, Wilber Martinez Primary Care Provider Reason for Visit * Reason Onset Date Comments Anticoagulation 09/21/2017 overdue from 09/17 Encounter Details Date Type Department Care Team (Late st Contact Info) Description 09/21/2017 Telephone [facility] Cardiology [address] [facility] Medical Office Building [address] [place] [phone] Catarina Huerta MD [address] [place] [address] [address] [place], [place] [id number] Anticoagulation (overdue from 09/17) Social History Tobacco Use Types Packs/Day Years Used Date Smoking Tobacco: Never Comments Unknown Sex and Gender Information Value Date Recorded Sex Assigned at Not on file Legal Sex Female 4:20 AM EDUCATIONAL PROGRAM ASSISTANT Gender Identity Not on file Sexual Orientation Not on file documented as of this encounter Miscellaneous Notes * Telephone Encounter - Gail Redman MA - 09/21/2017 2:06 PM CDT CREATED SO FOR [facility] * Telephone Encounter - Patricia Harrington, MPH - 09/21/2017 1:13 PM CDT LATOYA NEEDS STANDING ORDER FOR INR. [facility] IN [place], [place] FAX [phone] PT WILL GO BACK TOMORROW TO HAVE DRAWN. * Telephone Encounter - Gail Redman MA - 09/21/2017 9:02 AM CDT Patient is aware that INR is due now. documented in this encounter Plan of Treatment Scheduled Orders Name Type Priority Associated Diagnoses Orde r Schedule Protime-INR Lab Routine Atrial fibrillation, unspecified type (CMS/HCC) WEEKLY OR PRN for 26 Occurrences starting 09/21/2017 until 03/24/2018, 11 completed documented as of this encounter Procedures Procedure Name Priority Date/Time Associated Diagnosis Comments PROTIME-INR Routine 03/17/2018 8:17 AM EDUCATIONAL PROGRAM ASSISTANT Atrial fibrillation, unspecified type (CMS/HCC) PROTIME-INR Routine 03/05/2018 1:46 PM EDUCATIONAL PROGRAM ASSISTANT Atrial fibrillation, unspecified type (CMS/HCC) PROTIME-INR Routine 02/09/2018 10:23 AM EDUCATIONAL PROGRAM ASSISTANT Atrial fibrillation, unspecified type (CMS/HCC) PROTIME-INR Routine 01/22/2018 9:29 AM EDUCATIONAL PROGRAM ASSISTANT Atrial fibrillation, unspecified type (CMS/HCC) PROTIME-INR Routine 01/13/2018 11:00 AM CDT Atrial fibrillation, unspecified type (CMS/HCC) PROTIME-INR Routine 01/05/2018 10:55 AM CDT Atrial fibrillation, unspecified type (CMS/HCC) PROTIME-INR Routine 12/29/2017 11:19 AM CDT Atrial fibrillation, unspecified type (CMS/HCC) PROTIME-INR Routine 12/18/2017 11:20 AM CDT Atrial fibrillation, unspecified type (CMS/HCC) PROTIME-INR Routine 11/17/2017 11:07 AM CDT Atrial fibrillation, unspecified type (CMS/HCC) PROTIME-INR Routine 10/19/2017 1:11 PM CDT Atrial fibrillation, unspecified type (CMS/HCC) PROTIME-INR Routine 09/22/2017 9:12 AM CDT Atrial fibrillation, unspecified type (CMS/HCC) documented in this encounter Results * (ABNORMAL) Protime-INR (03/17/2018 8:17 AM EDUCATIONAL PROGRAM ASSISTANT) INR 2.3(H) [facility] Comment: Reference Range ? 0.9-1.1 Moderate-intensity Warfarin Therapy 2.0-3.0 Higher-intensity Warfarin Therapy ?? 3.0-4.0 PT 22.5(H) 9.0 - 11.5 sec [facility] [place] Comment: For more information on this test, go to: http://education.Poacht App/faq/QGS474 Blood specimen (specimen) 03/17/2018 8:17 AM EDUCATIONAL PROGRAM ASSISTANT 03/17/2018 8:17 AM EDUCATIONAL PROGRAM ASSISTANT Narrative Resulting Agency Comment Performing Organization Information: ?Site ID: JAREN ?Name: [facility] ?Address: [address] [address] ?Director: Darryl Keys D.O., MPH us Catarina Huerta MD LAB BLOOD ORDERABLES Final R esult J[facility] * (ABNORMAL) Protime-INR (03/05/2018 1:46 PM EDUCATIONAL PROGRAM ASSISTANT) INR 1.9(H) [facility] [place] Comment: Reference Range ? 0.9-1.1 Moderate-intensity Warfarin Therapy 2.0-3.0 Higher-intensity Warfarin Therapy ?? 3.0-4.0 PT 19.2(H) 9.0 - 11.5 sec [facility] [place] Comment: For more information on this test, go to: http://B[employer]olino [employer]ille.Poacht App/faq/VYS277 Blood specimen (specimen) 03/05/2018 1:46 PM EDUCATIONAL PROGRAM ASSISTANT 03/05/2018 1:46 PM EDUCATIONAL PROGRAM ASSISTANT Narrative Resulting Agency Comment Performing Organization Information: ?Site ID: [place] ?Name: [facility] ?Address: [address] [place] [address] [place] [address] ?Director: Darryl Keys D.O., MPH us Catarina Huerta MD LAB BLOOD ORDERABLES Final R esult [facility] [place] * (ABNORMAL) Protime-INR (02/09/2018 10:23 AM EDUCATIONAL PROGRAM ASSISTANT) INR 2.0(H) [facility] [place] Comment: Reference Range ? 0.9-1.1 Moderate-intensity Warfarin Therapy 2.0-3.0 Higher-intensity Warfarin Therapy ?? 3.0-4.0 PT 20.0(H) 9.0 - 11.5 sec [facility] - [place] Comment: For more information on this test, go to: http://Bardolino [employer]ille.Poacht App/faq/NCS275 Blood specimen (specimen) 02/09/2018 10:23 AM EDUCATIONAL PROGRAM ASSISTANT 02/09/2018 10:23 AM EDUCATIONAL PROGRAM ASSISTANT Narrative [facility] - 02/10/2018 4:36 AM EDUCATIONAL PROGRAM ASSISTANT FASTING:NO FASTING: NO Resulting Agency Comment Performing Organization Information: ?Site ID: JAREN ?Name: [facility] ?Address: [address] [address] ?Director: Darryl Keys D.O. MPH Catarina Huerta MD LAB BLOOD ORDERABLES Final R esult Performing Organization Address [facility] Co de Phone Number JAREN Guevara * (ABNORMAL) Protime-INR (01/22/2018 9:29 AM EDUCATIONAL PROGRAM ASSISTANT) INR 2.4(H) [facility] [place] Comment: Reference Range ? 0.9-1.1 Moderate-intensity Warfarin Therapy 2.0-3.0 Higher-intensity Warfarin Therapy ?? 3.0-4.0 PT 23.2(H) 9.0 - 11.5 sec [facility] [place] Comment: For more information on this test, go to: http://education.Poacht App/faq/DZV006 Blood specimen (specimen) 01/22/2018 9:29 AM EDUCATIONAL PROGRAM ASSISTANT 01/22/2018 9:29 AM EDUCATIONAL PROGRAM ASSISTANT Narrative [facility] - 01/23/2018 4:49 AM EDUCATIONAL PROGRAM ASSISTANT FASTING:NO FASTING: NO Resulting Agency Comment Performing Organization Information: ?Site ID: JAREN ?Name: [facility] ?Address: [address] [address] ?Director: Darryl Keys D.O., MPH Catarina Huerta MD LAB BLOOD ORDERABLES Final R esult Performing Organization Address [facility] Co de Phone Number JAREN Guevara * (ABNORMAL) Protime-INR (01/13/2018 11:00 AM CDT) INR 1.9(H) [facility] [place] Comment: Reference Range ? 0.9-1.1 Moderate-intensity Warfarin Therapy 2.0-3.0 Higher-intensity Warfarin Therapy ?? 3.0-4.0 PT 18.6(H) 9.0 - 11.5 sec [facility] [place] Comment: For more information on this test, go to: http://Bardolino Grille.Poacht App/faq/EQK277 Blood specimen (specimen) 01/13/2018 11:00 AM CDT 01/13/2018 11:01 AM CDT Narrative Resulting Agency Comment Performing Organization Information: ?Site ID: [place] ?Name: [facility] ?Address: [address] [place] [address] ?Director: Darryl Keys D.O., MPH Catarina Huerta MD LAB BLOOD ORDERABLES Final R esult [facility] [place] * (ABNORMAL) Protime-INR (01/05/2018 10:55 AM CDT) INR 2.4(H) [facility] - [place] Comment: Reference Range ? 0.9-1.1 Moderate-intensity Warfarin Therapy 2.0-3.0 Higher-intensity Warfarin Therapy ?? 3.0-4.0 PT 23.1(H) 9.0 - 11.5 sec [facility] [place] Comment: For more information on this test, go to: http://Bardolino [employer]ille.Poacht App/faq/MGX443 Blood specimen (specimen) 01/05/2018 10:55 AM CDT 01/05/2018 10:55 AM CDT Narrative [facility] - 01/06/2018 6:04 AM CDT FASTING:NO FASTING: NO Resulting Agency Comment Performing Organization Information: ?Site ID: JAREN ?Name: [facility] ?Address: [address] [place] [address] ?Director: Darryl Keys D.O., MPH Catarina Huerta MD LAB BLOOD ORDERABLES Final R [facility] Performing Organization Address [facility] de Phone Number [facility] [place] * (ABNORMAL) Protime-INR (12/29/2017 11:19 AM CDT) INR 3.5(H) [facility] [place] Comment: Reference Range ? 0.9-1.1 Moderate-intensity Warfarin Therapy 2.0-3.0 Higher-intensity Warfarin Therapy ?? 3.0-4.0 PT 33.9(H) 9.0 - 11.5 sec [facility] [place] Comment: For more information on this test, go to: http://education.Poacht App/faq/DZB393 Blood specimen (specimen) 12/29/2017 11:19 AM CDT 12/29/2017 11:20 AM CDT Narrative [facility] - 12/30/2017 5:07 AM CDT FASTING:NO FASTING: NO Resulting Agency Comment Performing Organization Information: ?Site ID: [place] ?Name: [facility] ?Address: [address] [place], [place] [address]J[place] [address] ?Director: Darryl Keys D.O., MPH Catarina Huerta MD LAB BLOOD ORDERABLES Final R ult Performing Organization Address [facility] de Phone Number [facility] [place] * (ABNORMAL) Protime-INR (12/18/2017 11:20 AM CDT) INR 3.1(H) [facility] [place] Comment: Reference Range ? 0.9-1.1 Moderate-intensity Warfarin Therapy 2.0-3.0 Higher-intensity Warfarin Therapy ?? 3.0-4.0 PT 29.9(H) 9.0 - 11.5 sec [facility] [place] Comment: For more information on this test, go to: http://Bardolino [employer]ille.Poacht App/faq/DNQ353 Blood specimen (specimen) 12/18/2017 11:20 AM CDT 12/18/2017 11:20 AM CDT Narrative [facility] - 12/19/2017 5:12 AM CDT FASTING:NO FASTING: NO Resulting Agency Comment Performing Organization Information: ?Site ID: [place] ?Name: [facility] ?Address: [facility] [address] [address] ?Director: Darryl Keys D.O. MPH Catarina Huerta MD LAB BLOOD ORDERABLES Final R esult [facility] [place] * (ABNORMAL) Protime-INR (11/17/2017 11:07 AM CDT) INR 2.4(H) [facility] [place] Comment: Reference Range ? 0.9-1.1 Moderate-intensity Warfarin Therapy 2.0-3.0 Higher-intensity Warfarin Therapy ?? 3.0-4.0 PT 23.8(H) 9.0 - 11.5 sec [facility] [place] Comment: For more information on this test, go to: http://Bardolino Grille.Poacht App/faq/JFB376 Blood specimen (specimen) 11/17/2017 11:07 AM CDT 11/17/2017 11:07 AM CDT Narrative [facility] - 11/18/2017 4:24 AM CDT FASTING:NO FASTING: NO Resulting Agency Comment Performing Organization Information: ?Site ID: [place] ?Name: [facility] ?Address: [address] [address] ?Director: Darryl Keys D.O. MPH Catarina Huerta MD LAB BLOOD ORDERABLES Final R esult Performing Organization Address [facility] Co de Phone Number [facility] [place] * (ABNORMAL) Protime-INR (10/19/2017 1:11 PM CDT) INR 2.7(H) [facility] [place] Comment: Reference Range ? 0.9-1.1 Moderate-intensity Warfarin Therapy 2.0-3.0 Higher-intensity Warfarin Therapy ?? 3.0-4.0 PT 26.1(H) 9.0 - 11.5 sec [facility] [place] Comment: For more information on this test, go to: http://Bardolino Grille.Poacht App/faq/TPA850 Blood specimen (specimen) 10/19/2017 1:11 PM CDT 10/19/2017 1:11 PM CDT Narrative [facility] - 10/20/2017 4:49 AM CDT FASTING:NO FASTING: NO Resulting Agency Comment Performing Organization Information: ?Site ID: [place] ?Name: [facility] ?Address: [address] [place] [address] [place] [address] ?Director: Darryl Keys D.O., MPH us Catarina Huerta MD LAB BLOOD ORDERABLES Final R esult Performing Organization Address [facility] Co de Phone Number JAREN Guevara * (ABNORMAL) Protime-INR (09/22/2017 9:12 AM CDT) INR 2.1(H) [facility] [place] Comment: Reference Range ? 0.9-1.1 Moderate-intensity Warfarin Therapy 2.0-3.0 Higher-intensity Warfarin Therapy ?? 3.0-4.0 PT 22.2(H) 9.0 - 11.5 sec [facility] [place] Comment: For more information on this test, go to: http://education.Poacht App/faq/YSH669 Blood specimen (specimen) 09/22/2017 9:12 AM CDT 09/22/2017 9:13 AM CDT Narrative [facility] - 09/23/2017 2:58 AM CDT FASTING:NO FASTING: NO Resulting Agency Comment Performing Organization Information: ?Site ID: JAREN ?Name: [facility] ?Address: [address] [place] [address] ?Director: Darryl Keys D.O., MPH us Catarina Huerta MD LAB BLOOD ORDERABLES Final R esult [facility] [place] documented in this encounter Visit Diagnoses Diagnosis Atrial fibrillation, unspecified type (HCC)- Primary documented in this encounter Care Teams Micrographics Services Supervisor Relationship Specialty Start Date End Date Wilber Cleaning Jr., MD [address] [place] [address] PCP - General 07/03/16 07/15/20 documented as of this encounter
--- OUTSIDE RECORDS SUMMARY | 2024-03-13 01:18 | XMS_ITS | Encounter Summary ---
Author Organization [facility] Address [address] [place] [address] Phone Care Team Providers Care Departmental Shipping Clerk Name Role Phone Hermila Calhoun MD, Wilber Martinez Primary Care Provider Reason for Visit * Reason Onset Date Comments Anticoagulation 09/23/2017 Encounter Details Date Type Department Care Team (Latest Contact Info) Description 09/23/2017 Anticoagulation Telephone Call [facility] Cardiology [address] [facility] Medical Office Building [address] [place] [phone] Catarina Huerta MD [facility] [address] [place] [address] Atrial fibrillation, unspecified type (CMS/[facility]) Social History Tobacco Use Types Packs/Day Years Used Date Smoking Tobacco: Never Comments Unknown Sex and Gender Information Value Date Recorded Sex Assigned at Not on file Legal Sex Female 4:20 AM INSTRUMENTATION TECH Gender Identity Not on file Sexual Orientation Not on file documented as of this encounter Miscellaneous Notes * Telephone Encounter - Gail Redman MA - 09/23/2017 10:30 AM CDT I spoke to the patient who verbalizes understanding of result and orders given. * Telephone Encounter - Margarita Méndez RN - 09/23/2017 9:15 AM CDT Please call pt. I think I signed this by mistake. Sorry. * Telephone Encounter - Margarita Méndez RN - 09/23/2017 9:12 AM CDT No change, recheck 4 weeks. jf documented in this encounter Plan of Treatment Not on file documented as of this encounter Visit Diagnoses Diagnosis Atrial fibrillation, unspecified type (HCC) documented in this encounter Care Teams Departmental Shipping Clerk Relationship Specialty Start Date End Date Wilber Cleaning Jr., MD [facility] [place] [address] PCP - General 07/03/16 07/15/20 documented as of this encounter
--- OUTSIDE RECORDS SUMMARY | 2024-03-13 01:18 | XMS_ITS | Encounter Summary ---
Author Organization [facility] Address [address] [place] [address] Phone Care Team Providers Care Call Center Associate Name Role Phone Hermila Calhoun MD, Wilber Martinez Primary Care Provider Encounter Details Date Type Department Care Team (Latest Contact Info) Description 03/10/2018 Anticoagulation Telephone Call [facility] Cardiology [address] [facility] Medical Office Building [address] [place] [address] Catarina Huerta MD [address] [facility] [address] [place] [address] Atrial fibrillation, unspecified type (CMS/HCC) Social History Tobacco Use Types Packs/Day Years Used Date Smoking Tobacco: Never Smokeless Tobacco: Never Comments Unknown Sex and Gender Information Value Date Recorded Sex Assigned at Not on file Legal Sex Female 4:20 AM MANAGER DOMESTIC Gender Identity Not on file Sexual Orientation Not on file documented as of this encounter Miscellaneous Notes * Telephone Encounter - Margarita Méndez RN - 03/10/2018 2:15 PM MANAGER DOMESTIC Change to 3 mg MTh, 2 mg x5, recheck 1 week. Pt denies missed doses, change in diet. She reports she has been using less Tylenol. jf GER DOMESTIC documented in this encounter Plan of Treatment Not on file documented as of this encounter Visit Diagnoses Diagnosis Atrial fibrillation, unspecified type (HCC) documented in this encounter Care Teams Call Center Associate Relationship Specialty Start Date End Date Wilber Cleaning Jr., MD [address] [place] [address] PCP - General 07/03/16 07/15/20 documented as of this encounter
--- OUTSIDE RECORDS SUMMARY | 2024-03-13 01:18 | XMS_ITS | Encounter Summary ---
Author Organization [facility] Address [address] [place] [address] Phone Care Team Providers Care Consultative Sales Associate Name Role Phone Hermila Calhoun MD, Wilber Martinez Primary Care Provider Encounter Details Date Type Department Care Team (Latest Contact Info) Description 01/14/2018 Anticoagulation Telephone Call [facility] Cardiology [address] [facility] Medical Office Building [address] [place] [address] Catarina Huerta MD [address] [facility] [address] [place] [address] Atrial fibrillation, unspecified type (CMS/HCC) Social History Tobacco Use Types Packs/Day Years Used Date Smoking Tobacco: Never Smokeless Tobacco: Never Comments Unknown Sex and Gender Information Value Date Recorded Sex Assigned at Not on file Legal Sex Female 4:20 AM ECONOMETRICIAN Gender Identity Not on file Sexual Orientation Not on file documented as of this encounter Miscellaneous Notes * Telephone Encounter - Gail Redman MA - 01/14/2018 10:48 AM CDT I left a message for the patient with result and orders. * Telephone Encounter - Margarita Méndez RN - 01/14/2018 8:54 AM CDT Change to 1 mg MF, 2 mg x5, recheck 1 wk. jf documented in this encounter Plan of Treatment Not on file documented as of this encounter Visit Diagnoses Diagnosis Atrial fibrillation, unspecified type (HCC) documented in this encounter Care Teams Consultative Sales Associate Relationship Specialty Start Date End Date Wilber Cleaning Jr., MD [address] [place] [address] PCP - General 07/03/16 07/15/20 documented as of this encounter
--- OUTSIDE RECORDS SUMMARY | 2024-03-13 01:18 | XMS_ITS | Encounter Summary ---
Author Organization [facility] Address [address] [place] [address] Phone Care Team Providers Care Candy Separator Hard Name Role Phone Hermila Calhoun MD, Wilber Martinez Primary Care Provider Encounter Details Date Type Department Care Team (Latest Contact Info) Description 02/10/2018 Anticoagulation Telephone Call [facility] Cardiology [facility] Medical Office Building [address] [place] [address] Margarita Méndez RN Atrial fibrillation, unspecified type (CMS/HCC) Social History Tobacco Use Types Packs/Day Years Used Date Smoking Tobacco: Never Smokeless Tobacco: Never Comments Unknown Sex and Gender Information Value Date Recorded Sex Assigned at Not on file Legal Sex Female 4:20 AM TOOL SHARPENER Gender Identity Not on file Sexual Orientation Not on file documented as of this encounter Miscellaneous Notes * Telephone Encounter - Lina Colvin MA - 02/10/2018 12:58 PM TOOL SHARPENER LMOR with results and recommendations and to call back if any questions or concerns. SHARPENER * Telephone Encounter - Margarita Méndez RN - 02/10/2018 12:27 PM TOOL SHARPENER Please call pt. SHARPENER * Telephone Encounter - Margarita Méndez RN - 02/10/2018 12:26 PM TOOL SHARPENER No change, recheck 4 weeks. jf SHARPENER documented in this encounter Plan of Treatment Not on file documented as of this encounter Visit Diagnoses Diagnosis Atrial fibrillation, unspecified type (HCC) documented in this encounter Care Teams Candy Separator Hard Relationship Specialty Start Date End Date Wilber Cleaning Jr., MD [address] [place] [address] PCP - General 07/03/16 07/15/20 documented as of this encounter
--- OUTSIDE RECORDS SUMMARY | 2024-03-13 01:18 | XMS_ITS | Encounter Summary ---
Author Organization [facility] Address [address] [place] [address] Phone Care Team Providers Care Neurosurgery Research Director Name Role Phone Hermila Calhoun MD, Wilber Martinez Primary Care Provider Encounter Details Date Type Department Care Team (Late st Contact Info) Description 12/21/2017 Nurse Triage [facility] Cardiology [address] [facility] Medical Office Building [address] [place] [address] Catarina Huerta MD [address] [facility] [address] [place] [address] Social History Tobacco Use Types Packs/Day Years Used Date Smoking Tobacco: Never Smokeless Tobacco: Never Comments Unknown Sex and Gender Information Value Date Recorded Sex Assigned at Not on file Legal Sex Female 4:20 AM CHILD CARE DIRECTOR Gender Identity Not on file Sexual Orientation Not on file documented as of this encounter Miscellaneous Notes * Telephone Encounter - Gail Redman MA - 12/21/2017 8:23 AM CDT erroneous encounter documented in this encounter Plan of Treatment Not on file documented as of this encounter Visit Diagnoses Not on filedocumented in this encounter Care Teams Neurosurgery Research Director Relationship Specialty Start Date End Date Wilber Cleaning Jr., MD [address] [place] [address] PCP - General 07/03/16 07/15/20 documented as of this encounter
--- OUTSIDE RECORDS SUMMARY | 2024-03-13 01:18 | XMS_ITS | Encounter Summary ---
Author Organization [facility] Address [address] [facility] [address] [place] [address] Care Team Providers Care Sexual Assault Nurse Name Role Phone Hermila Calhoun MD, Wilber Martinez Primary Care Provider Ryann Galdamez Primary Care Provider [phone] Encounter Details Date Type Department Care Team (Late st Contact Info) Description 11/21/2016 Orders Only [facility] [address] [place] [address] Scanning, Provider Social History Tobacco Use Types Packs/Day Years Used Date Smoking Tobacco: Never Assessed AUDIT-C Answer Date Recorded Q1: How often [...] on file Legal Sex Female 4:20 AM CARD CUTTER HELPER Gender Identity Not on file Sexual [...] Date/Time Associated Diagnosis Comments SCAN - LABS 11/21/2016 documented in this encounter Results * SCAN - LABS (11/21/2016) us Provider Scanning Final Result documented in this encounter Visit Diagnoses Not on filedocumented in this encounter Additional Health Concerns Infection Onset Date Last Indicated Resolved Time COVID19 Comment:IP Review - pt afebrile, without URI signs/symptoms. Aislinn Goldsmith, CHAIN MAKER MACHINE 06/09/2019 06/09/2019 06/09/2019 4:20 PM C DT documented as of this encounter Care Teams Sexual Assault Nurse Relationship Specialty Start Date End Date Wilber Claening Jr., MD [address] [place] [address] PCP - General 07/03/16 07/15/20 Ryann Galdamez PA [address] [employer] [place] [address] PCP - General Crotch Breaker 07/16/20 04/01/21 documented as of this encounter
--- OUTSIDE RECORDS SUMMARY | 2024-03-13 01:18 | XMS_ITS | Encounter Summary ---
Author Organization [facility] Medical [facility] Address [address] [place] [address] Care Team Providers Care Casing Wringer Operator Name Role Phone Hermila Calhoun MD, Wilber Martinez Primary Care Provider Ryann Galdamez Primary Care Provider [phone] Ryann Galdamez Primary Care Provider [phone] Chris Mendes MD Unavailable [phone] Keli Orozco RN Unavailable Unavailable Alysa Newton RN Unavailable [phone] Cuba Larsen MD Primary Care Provider [phone] Keli Orozco RN Unavailable Unavailable Keli Orozco RN Unavailable Unavailable Tami Mcknight RN Unavailable Unavailab le Encounter Details Date Type Department Care Team (Late st Contact Info) Description 09/29/2014 Orders Only [facility] [place] [facility] [place] [facility] [address] [place] [address] Scanning, Provider Social History Tobacco Use Types Packs/Day Years Used Date Smoking Tobacco: Never Assessed Comments Unknown Sex and Gender Information Value Date Recorded Sex Assigned at Not on file 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 Gender Identity Not on file Sexual Orientation Not on file documented as of this encounter Plan of Treatment Not on file documented as of this encounter Procedures Procedure Name Priority Date/Time Associated Diagnosis Comments SCAN - RADIOLOGY/IMAGING 09/29/2014 documented in this encounter Results * SCAN - RADIOLOGY/IMAGING (09/29/2014) Anatomical Region Laterality Modality Other us Provider Scanning Final Result documented in this encounter Visit Diagnoses Not on filedocumented in this encounter Additional Health Concerns Infection Onset Date Last Indicated Resolved Time COVID19 Comment:IP Review - pt afebrile, without URI signs/symptoms. Aislinn Goldsmith, NETWORK PRICING CONSULTANT 06/09/2019 06/09/2019 06/09/2019 4:20 PM C DT documented as of this encounter Care Teams Casing Wringer Operator Relationship Specialty Start Date End Date Wilber Cleaning Jr., MD [address] [place] [address] PCP - General 07/03/16 07/15/20 Ryann Galdamez PA [address] [place] [address] PCP - General Map Editor 07/16/20 04/01/21 Ryann Galdamez PA [address] [place] [address] PCP - General Map Editor 04/02/21 01/22/22 Cuba Larsen MD [address] [facility] [address] [place] [address] PCP - General Family Medicine 01/23/22 Chris Mendes MD [address] [place] [address] Referring Physician Cardiology 12/23/21 Keli Orozco, upscale security officerTrust Manager Assistant Cardiology 12/23/21 04/15/23 Alysa Newton, ARMANI [address] [facility] [address] [place] [address] Trust Manager Assistant Cardiology 12/23/21 Keli Orozco, dictating machine typist Failure Coordinator 04/02/23 4 Keli Orozco, dictating machine typist Failure Coordinator Transplant 04/15/23 Tami Mcknight dictating machine typist Failure Coordinator Cardiology 09/14/23 documented as of this encounter
--- OUTSIDE RECORDS SUMMARY | 2024-03-13 01:18 | XMS_ITS | Encounter Summary ---
Author Organization [facility] Medical [facility] Address [address] [place] [address] Care Team Providers Care Referral Manager Name Role Phone Hermila Calhoun MD, Wilber Martinez Primary Care Provider Ryann Galdamez Primary Care Provider [phone] Ryann Galdamez Primary Care Provider [phone] Chris Mendes MD Unavailable [phone] Keli Orozco RN Unavailable Unavailable Alysa Newton RN Unavailable [phone] Cuba Larsen MD Primary Care Provider [phone] Keli Orozco RN Unavailable Unavailable Keli Orozco RN Unavailable Unavailable Tami Mcknight RN Unavailable Unavailab le Encounter Details Date Type Department Care Team (Late st Contact Info) Description 06/22/2013 Orders Only [facility] [place] Health Information Management [address] [place] [address] Scanning, Provider Social History Tobacco Use Types Packs/Day Years Used Date Smoking Tobacco: Never Assessed Comments Unknown Sex and Gender Information Value Date Recorded Sex Assigned at Not on file 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 Aislinn Goldsmith, JEWELRY BEARING MAKER 06/09/2019 06/09/2019 06/09/2019 4:20 PM C DT documented as of this encounter Care Teams Referral Manager Relationship Specialty Start Date End Date Wilber Cleaning Jr., MD [address] [place] [address] PCP - General 07/03/16 07/15/20 Ryann Galdamez PA [address] [place] [address] PCP - General Tip Finisher 07/16/20 04/01/21 Ryann Galdamez PA [address] [place] [address] PCP - General Tip Finisher 04/02/21 01/22/22 Cuba Larsen MD [address] [address] PCP - General Family Medicine 01/23/22 Chris Mendes MD [address] [place] [address] Referring Physician Cardiology 12/23/21 Keli Orozco, triple valve testerSupervisor Type Photography Cardiology 12/23/21 04/15/23 Alysa Newton, RN [address] [address] Supervisor Type Photography Cardiology 12/23/21 Keli Orozco, art director Failure Coordinator 04/02/23 4 Keli Orozco, art director Failure Coordinator Transplant 04/15/23 Tami Mcknight art director Failure Coordinator Cardiology 09/14/23 documented as of this encounter
--- OUTSIDE RECORDS SUMMARY | 2024-03-13 01:18 | XMS_ITS | Encounter Summary ---
Author Organization [facility] Medical [facility] Address [address] [place] [address] Care Team Providers Care Optical Effects Camera Operator Name Role Phone Hermila Calhoun MD, Oscar A. Primary Care Provider Encounter Details Date Type Department Care Team (Late st Contact Info) Description 02/12/2018 Orders Only [facility] [address] Wilber Cleaning Jr., MD [address] [place] [address] Social History Tobacco Use Types Packs/Day Years Used Date Smoking Tobacco: Never Smokeless Tobacco: Never Comments Unknown Sex and Gender Information Value Date Recorded Sex Assigned at Not on file Legal Sex Female 4:20 AM GENERATION MECHANIC HELPER Gender Identity Not on file Sexual Orientation Not on file documented as of this encounter Plan of Treatment Not on file documented as of this encounter Procedures Procedure Name Priority Date/Time Associated Diagnosis Comments COPY RECEIVED FROM Routine 02/12/2018 10 :25 AM GENERATION MECHANIC HELPER VITAMIN D 25 HYDROXY Routine 02/12/2018 10:25 AM GENERATION MECHANIC HELPER ALT Routine 02/12/2018 10:25 AM GENERATION MECHANIC HELPER AST Routine 02/12/2018 10:25 AM GENERATION MECHANIC HELPER MAGNESIUM Routine 02/12/2018 10:25 AM GENERATION MECHANIC HELPER HEMOGLOBIN A1C Routine 02/12/2018 10:25 AM GENERATION MECHANIC HELPER LIPID PANEL Routine 02/12/2018 10:25 AM GENERATION MECHANIC HELPER BASIC METABOLIC PANEL Routine 02/12/2018 10:25 AM GENERATION MECHANIC HELPER documented in this encounter Results * Vitamin D 25 hydroxy (02/12/2018 10:25 AM GENERATION MECHANIC HELPER) Pathologist [facility] Vitamin D 25-OH 30 30 - 100 ng/mL [facility] Comment: Vitamin D Status ? 25-OH Vitamin D: Deficiency: ?<20 ng/mL Insufficiency: ? 20 - 29 ng/mL Optimal: ? > or = 30 ng/mL For 25-OH Vitamin D testing on patients on D2-supplementation and patients for whom quantitation of D2 and D3 fractions is required, the QuestAssureD(TM) 25-OH VIT D, (D2,D3), LC/MS/MS is recommended: order code 73341 (patients >2yrs). For more information on this test, go to: http://education.ViewReple/faq/EXJ370 (This link is being provided for informational/educational purposes only.) 02/12/2018 10:2 5 AM GENERATION MECHANIC HELPER 02/12/2018 10:29 AM GENERATION MECHANIC HELPER Narrative [facility] - 02/13/2018 6:13 AM GENERATION MECHANIC HELPER FASTING:YES FASTING: YES Resulting Agency Comment Performing Organization Information: ?Site ID: [place] ?Name: [facility] ?Address: [address] [address] ?Director: Darryl Keys D.O., MPH Wilber Cleaning Jr., MD LAB BLOOD ORDERABLES F inal Result Performing Organization Address [facility]/ZIP Co de Phone Number [facility] [place] Dug[place] * (ABNORMAL) Hemoglobin A1c (02/12/2018 10:25 AM GENERATION MECHANIC HELPER) Hgb A1C 6.8(H) <5.7 % of total Hgb [facility]ULIO CÉSAR [facility] Comment: For someone without known diabetes, a hemoglobin A1c value of 6.5% or greater indicates that they may have diabetes and this should be confirmed with a follow-up test. For someone with known diabetes, a value <7% indicates that their diabetes is well controlled and a value greater than or equal to 7% indicates suboptimal control. A1c targets should be individualized based on duration of diabetes, age, comorbid conditions, and other considerations. Currently, no consensus exists regarding use of hemoglobin A1c for diagnosis of diabetes for children. ? Your request to have a duplicate copy faxed has been acknowledged. ?Queued to: ??[id number] 02/12/2018 10:2 5 AM GENERATION MECHANIC HELPER 02/12/2018 10:29 AM GENERATION MECHANIC HELPER Narrative [facility] - 02/13/2018 6:13 AM GENERATION MECHANIC HELPER FASTING:YES FASTING: YES Resulting Agency Comment Performing Organization Information: ?Site ID: [place] ?Name: [facility] ?Address: [address] [place] [address] [place] [address] ?Director: Darryl Keys D.O., MPH us Wilber Cleaning Jr., MD LAB BLOOD ORDERABLES F inal Result Performing Organization Address [facility]/ZIP Co de Phone Number JULIO CÉSAR [facility]JAREN omalley * (ABNORMAL) Basic metabolic panel (02/12/2018 10:25 AM GENERATION MECHANIC HELPER) Glucose 142(H) 65 - 99 mg/dL JULIO CÉSAR DALAL JAREN Comment: ? Fasting reference interval For someone without known diabetes, a glucose value >125 mg/dL indicates that they may have diabetes and this should be confirmed with a follow-up test. BUN 21 7 - 25 mg/dL [facility] [place] Creatinine 0.56(L) 0.60 - 0.93 mg/dL [facility] [place] Comment: For patients >49 years of age, the reference limit for Creatinine is approximately 13% higher for people identified as -Wallisian. eGFR NON-AFR. LIBYAN 90 > OR = 60 mL/min/1. 73m2 [facility] [place] EGFR 104 > OR = 60 mL/min/1. 73m2 [facility] [place] BUN/creat ratio 38(H) 6 - 22 (calc) [facility] [place] Sodium 140 135 - 146 mmol/L [facility] [place] Potassium, pl 4.2 3.5 - 5.3 mmol/L [facility] [place] Chloride 104 98 - 110 mmol/L [facility] [place] CO2 28 20 - 32 mmol/L [facility] [place] Calcium 10.1 8.6 - 10.4 mg/dL [facility] [place] 02/12/2018 10:2 5 AM GENERATION MECHANIC HELPER 02/12/2018 10:29 AM GENERATION MECHANIC HELPER Narrative [facility] - 02/13/2018 6:13 AM GENERATION MECHANIC HELPER FASTING:YES FASTING: YES Resulting Agency Comment Performing Organization Information: ?Site ID: [place] ?Name: [facility] ?Address: [address] Center[facility] [place] [address] ?Director: Darryl Keys D.O. MPH Wilber Cleaning Jr., MD LAB BLOOD ORDERABLES F inal Result [facility] - [place] JAREN [place] * ALT (02/12/2018 10:25 AM GENERATION MECHANIC HELPER) ALT (SGPT) 18 6 - 29 U/L JULIO CÉSAR [email or web address] 02/12/2018 10:2 5 AM GENERATION MECHANIC HELPER 02/12/2018 10:29 AM GENERATION MECHANIC HELPER Narrative [facility] - 02/13/2018 6:13 AM GENERATION MECHANIC HELPER FASTING:YES FASTING: YES Resulting Agency Comment Performing Organization Information: ?Site ID: [place] ?Name: [facility] ?Address: [facility] [place] [address] ?Director: Darryl Keys D.O., MPH Wilber Cleaning Jr., MD LAB BLOOD ORDERABLES F inal Result Performing Organization Address [facility] de Phone Number JULIO CÉSAR [facility] - [place] Duggan * AST (02/12/2018 10:25 AM GENERATION MECHANIC HELPER) AST 17 10 - 35 U/L [facility] - [place] 02/12/2018 10:2 5 AM GENERATION MECHANIC HELPER 02/12/2018 10:29 AM GENERATION MECHANIC HELPER Narrative [facility] - 02/13/2018 6:13 AM GENERATION MECHANIC HELPER FASTING:YES FASTING: YES Resulting Agency Comment Performing Organization Information: ?Site ID: [place] ?Name: [facility] ?Address: [facility] [address] [place] [address] ?Director: Darryl Keys D.O., MPH Wilber Cleaning Jr., MD LAB BLOOD ORDERABLES F inal Result Performing Organization Address [facility] Phone Number JULIO CÉSAR [facility] - [place] * Magnesium (02/12/2018 10:25 AM GENERATION MECHANIC HELPER) Magnesium 1.9 1.5 - 2.5 mg/dL [facility] - [place] 02/12/2018 10:2 5 AM GENERATION MECHANIC HELPER 02/12/2018 10:29 AM GENERATION MECHANIC HELPER Narrative [facility] - 02/13/2018 6:13 AM GENERATION MECHANIC HELPER FASTING:YES FASTING: YES Resulting Agency Comment Performing Organization Information: ?Site ID: [place] ?Name: [facility] ?Address: [facility] [address] [place] [address] ?Director: Darryl Keys D.O., MPH Wilber Cleaning Jr., MD LAB BLOOD ORDERABLES F inal Result Performing Organization Address [facility]/State/ZIP Co de Phone Number [facility] [place] * (ABNORMAL) Lipid panel (02/12/2018 10:25 AM GENERATION MECHANIC HELPER) Cholesterol 179 <200 mg/dL [facility] [place] HDL 28(L) >50 mg/dL [facility] [place] Triglycerides 228(H) <150 mg/dL [facility] [place] LDL 116(H) mg/dL (calc) [facility] [place] Comment: Reference range: <100 Desirable range <100 mg/dL for primary prevention; ?? <70 mg/dL for patients with CHD or diabetic patients with > or = 2 CHD risk factors. LDL-C is now calculated using the Buzz-Rao calculation, which is a validated novel method providing better accuracy than the Friedewald equation in the estimation of LDL-C. Buzz SS et al. WILFRIDO. 2013;310(74): 7017-9558 (http://education.NewsBasis/faq/DDC019) Chol/HDL ratio 6.4(H) <5.0 (calc) [facility] [place] Non-HDL, (LDL+VLDL) 151(H) <130 mg/dL (calc) [facility] [place] Comment: For patients with diabetes plus 1 major ASCVD risk factor, treating to a non-HDL-C goal of <100 mg/dL (LDL-C of <70 mg/dL) is considered a therapeutic option. 02/12/2018 10:2 5 AM GENERATION MECHANIC HELPER 02/12/2018 10:29 AM GENERATION MECHANIC HELPER Narrative [facility] - 02/13/2018 6:13 AM GENERATION MECHANIC HELPER FASTING:YES FASTING: YES Resulting Agency Comment Performing Organization Information: ?Site ID: JAREN ?Name: [facility] ?Address: [address] [address] [facility] [address] [facility] [address] [address] ?Director: Darryl Keys D.O., MPH us Wilber Cleaning Jr., MD LAB BLOOD ORDERABLES F inal Result JAREN Guevara * Copy received from (02/12/2018 10:25 AM GENERATION MECHANIC HELPER) Copy Rec'd from: [facility] Comment: ?[facility] ?[address] ?[place] [address] 02/12/2018 10:2 5 AM GENERATION MECHANIC HELPER 02/12/2018 10:29 AM GENERATION MECHANIC HELPER Narrative [facility] - 02/13/2018 6:13 AM GENERATION MECHANIC HELPER FASTING:YES FASTING: YES us Wilber Cleaning Jr., MD LAB BLOOD ORDERABLES F inal Result [facility] documented in this encounter Visit Diagnoses Not on filedocumented in this encounter Care Teams Optical Effects Camera Operator Relationship Specialty Start Date End Date Wilber Cleaning Jr., MD [address] [place] [address] PCP - General 07/03/16 07/15/20 documented as of this encounter
--- OUTSIDE RECORDS SUMMARY | 2024-03-13 01:19 | XMS_ITS | Encounter Summary ---
Author Organization [facility] Address [address] [place] [address] Phone Care Team Providers Care Associate Professor Of Philosophy Name Role Phone Hermila Calhoun MD, Wilber Martinez Primary Care Provider Ryann Galdamez Primary Care Provider [phone] Ryann Galdamez Primary Care Provider [phone] Chris Mendes MD Unavailable [phone] Keli Orozco RN Unavailable Unavailable Alysa Newton RN Unavailable [phone] Cuba Larsen MD Primary Care Provider Keli Orozco RN Unavailable Unavailable Keli Orozco RN Unavailable Unavailable Tami Mcknight RN Unavailable Unavailab le Encounter Details Date Type Department Care Team (Latest Contact Info) Description 1940 Orders Only [facility] CARDIOLOGY Margarita Méndez RN Social History Tobacco Use Types Packs/Day Years Used Date Smoking Tobacco: Never Assessed Comments Unknown Sex and Gender Information Value Date Recorded Sex Assigned at Not on file 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 Aislinn Goldsmith, FUR CLEANER 06/09/2019 06/09/2019 06/09/2019 4:20 PM C DT documented as of this encounter Care Teams Associate Professor Of Philosophy Relationship Specialty Start Date End Date Wilber Cleaning Jr., MD [address] [place] [address] PCP - General 07/03/16 07/15/20 Ryann Galdamez PA [address] [place] [address] PCP - General Drafter Marine 07/16/20 04/01/21 Ryann Galdamez PA [address] [place] [address] PCP - General Drafter Marine 04/02/21 01/22/22 Cuba Larsen MD [address] [address] PCP - General Family Medicine 01/23/22 Chris Mendes MD [address] [place] [address] Referring Physician Cardiology 12/23/21 Keli Orozco, data communications engineerWeight Inspector Cardiology 12/23/21 04/15/23 Alysa Newton, RN [address] [facility] [address] [place] [address] Weight Inspector Cardiology 12/23/21 Keli Orozco, detective investigator Failure Coordinator 04/02/23 4 Keli Orozco, detective investigator Failure Coordinator Transplant 04/15/23 Tami Mcknight detective investigator Failure Coordinator Cardiology 09/14/23 documented as of this encounter
--- OUTSIDE RECORDS SUMMARY | 2024-03-13 01:19 | XMS_ITS | Encounter Summary ---
Author Organization [facility] Facility Care Team Providers Care Guitar Technician Name Role Phone Unavailable Primary Care Provider Unavailabl e Encounter Details Date Type Department Care Team (Latest Contact Info) Description 12/29/2012 2:09 PM CDT Hospital Encounter [facility] Catarina Huerta MD [address] [place] [address] Atrial fibrillation (CMS/HCC) ([facility]) Social History Tobacco Use Types Packs/Day Years Used Date Smoking Tobacco: Never Assessed Comments Unknown Sex and Gender Information Value Date Recorded Sex Assigned at Not on file 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 Gender Identity Not on file Sexual [...] 05/22/2008 09/22/2017 documented as of this encounter Plan of Treatment Not on file documented as of this encounter Procedures Procedure Name Priority Date/Time Associated Diagnosis Comments PLASMA PROTHROMBIN TIME (PT) Routine 12/29/2012 2:15 PM CDT PLASMA LIPID PANEL Routine 12/29/2012 2: 15 PM CDT DISCHARGE LABORATORY CUMULATIVE REPORT 12/29/2012 documented in this encounter Results * (ABNORMAL) Plasma lipid panel (12/29/2012 2:15 PM CDT) Cholesterol 169 140 - 199 mg/dl HISTORICAL RESULTS Triglycerides 154(H) 20 - 150 mg/dl HISTORICAL RESULTS HDL 28(L) 40 - 60 mg/dl HISTORICAL RESULTS LDL 110(H) 65 - 100 mg/dl HISTORICAL RESULTS Plasma 12/29/2012 2:15 PM CDT us Catarina Huerta MD LAB BLOOD ORDERABLES Final R esult HISTORICAL RESULTS * (ABNORMAL) Plasma prothrombin time (PT) (12/29/2012 2:15 PM CDT) Prothrombin time (PT) 24.6(H) 11.5 - 14.0 seconds HISTORICAL RESULTS INR 2.3(H) 0.9 - 1.1 HISTORICAL RESULTS Comment: INDICATION: ORTHOPEDIC Total Hip and Knee Arthroplasty ?1.8 to 2.6 Hip Fracture ?1.8 to 2.6 CARDIOLOGY Atrial Fibrillation ? 2.0 to 3.0 Cardiomyopathy ?2.0 to 3.0 Myocardial Infarction ?2.0 to 3.0 Bioprosthetic Heart Valve ? 2.0 to 3.0 Mechanical Valve Replacement ?2.[address] Ac Mechanical Aortic Valve ?2.0 to 3.0 TREATMENT OF VENOUS THRMBOSIS Deep Vein Thrombosis ? 2.0 to 3.0 Pulmonary Embolism ? 2.0 to 3.0 Plasma 12/29/2012 2:15 PM CDT us Catarina Huerta MD LAB BLOOD ORDERABLES Final R esult HISTORICAL RESULTS * DISCHARGE LABORATORY CUMULATIVE REPORT (12/29/2012) Narrative 12/29/2012 Ordered by an unspecified provider. us Historical Provider LAB BLOOD ORDERABLES Sri davalos Result documented in this encounter Visit Diagnoses Diagnosis Atrial fibrillation (CMS/HCC) (HCC) Atrial fibrillation documented in this encounter
--- OUTSIDE RECORDS SUMMARY | 2024-03-13 01:19 | XMS_ITS | Encounter Summary ---
Author Organization [facility] Facility Care Team Providers Care Cnc Grinder Name Role Phone Unavailable Primary Care Provider Unavailabl e Encounter Details Date Type Department Care Team (Late st Contact Info) Description 01/14/2011 4:44 PM CDT - 01/14/2011 11:59 PM CDT Hospital Encounter [facility] Jorge Gloria MD [address] [place] [address] Social History Tobacco Use Types Packs/Day Years Used Date Smoking Tobacco: Never Assessed Comments Unknown Sex and Gender Information Value Date Recorded Sex Assigned at Not on file Legal Sex Female 4:20 AM SENIOR STAFF ACCOUNTANT Gender Identity Not on file Sexual Orientation Not on file documented as of this encounter Medications at Time of Discharge losartan (COZAAR) 100 mg tablet TAKE ONE TABLET BY MOUTH ONCE DAILY 04/10/2009 12/02/2017 warfarin (COUMADIN) 1 mg tablet Take 1 tablet by mouth 3 (three) times a week. 05/22/2008 09/22/2017 documented as of this encounter Plan of Treatment Not on file documented as of this encounter Visit Diagnoses Not on filedocumented in this encounter
--- OUTSIDE RECORDS SUMMARY | 2024-03-13 01:19 | XMS_ITS | Encounter Summary ---
Author Organization [facility] Facility Care Team Providers Care Buttonhole Machine Operator Name Role Phone Unavailable Primary Care Provider Unavailabl e Encounter Details Date Type Department Care Team (Latest Contact Info) Description 08/16/2009 11:26 AM CDT Hospital Encounter [facility] Janet Frank MD [address] [place] [address] Atrial fibrillation (CMS/HCC) (HCC) Social History Tobacco Use Types Packs/Day Years Used Date Smoking Tobacco: Never Assessed Comments Unknown Sex and Gender Information Value Date Recorded Sex Assigned at Not on file Legal Sex Female 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
--- OUTSIDE RECORDS SUMMARY | 2024-03-13 01:19 | XMS_ITS | Encounter Summary ---
Author Organization [facility] Facility Care Team Providers Care Electrical Accessories I Assembler Name Role Phone Unavailable Primary Care Provider Unavailabl e Encounter Details Date Type Department Care Team (Latest Contact Info) Description 05/03/2010 3:56 PM SAGGER PREPARER - 05/06/2010 10:49 AM [facility] Hospital Encounter [facility] Catarina Huerta MD [address] [place] [address] Atrial fibrillation (CMS/HCC) (HCC); Essential hypertension; Other and unspecified hyperlipidemia; Esophageal reflux; Other depressive disorder; Arthropathy; Viral infection in conditions classified elsewhere and of unspecified site; Thyrotoxicosis; Chronic sinusitis Social History Tobacco Use Types Packs/Day Years Used Date Smoking Tobacco: Never Assessed Comments Unknown Sex and Gender Information Value Date Recorded Sex Assigned at Not on file Legal Sex Female 4:20 AM SAGGER PREPARER Gender Identity Not on file Sexual Orientation [...] Diagnosis Atrial fibrillation (CMS/HCC) (HCC) Atrial fibrillation Essential hypertension Unspecified essential hypertension Other and unspecified hyperlipidemia Esophageal reflux Other depressive disorder Arthropathy Unspecified arthropathy, site unspecified Viral infection in conditions classified elsewhere and of unspecified site Thyrotoxicosis Thyrotoxicosis without mention of goiter or other cause, without mention of thyrotoxic crisis or storm Chronic sinusitis Unspecified sinusitis (chronic) documented in this encounter
--- OUTSIDE RECORDS SUMMARY | 2024-03-13 01:19 | XMS_ITS | Encounter Summary ---
Author Organization [facility] Medical [facility] Address [address] [place] [address] Care Team Providers Care Windows Application Developer Name Role Phone Hermila Calhoun MD, Wilber Martinez Primary Care Provider Ryann Galdamez Primary Care Provider [phone] Ryann Galdamez Primary Care Provider [phone] Chris Mendes MD Unavailable [phone] Keli Orozco RN Unavailable Unavailable Alysa Newton RN Unavailable [phone] Cuba Larsen MD Primary Care Provider [phone] Keli Orozco RN Unavailable Unavailable Keli Orozco RN Unavailable Unavailable Tami Mcknight RN Unavailable Unavailab le Encounter Details Date Type Department Care Team (Late st Contact Info) Description 04/29/2013 Orders Only [facility] Health Information Management [address] [place] [address] Scanning, Provider Social History Tobacco Use Types Packs/Day Years Used Date Smoking Tobacco: Never Assessed Comments Unknown Sex and Gender Information Value Date Recorded Sex Assigned at Not on file Legal Sex Female 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 Gender Identity Not on file Sexual Orientation Not on file documented as of this encounter Plan of Treatment Not on file documented as of this encounter Procedures Procedure Name Priority Date/Time Associated Diagnosis Comments GI - RESULT 04/29/2013 documented in this encounter Results * GI - RESULT (04/29/2013) Anatomical Region Laterality Modality Other us Provider Scanning Final Result documented in this encounter Visit Diagnoses Not on filedocumented in this encounter Additional Health Concerns Infection Onset Date Last Indicated Resolved Time COVID19 Comment:IP Review - pt afebrile, without URI signs/symptoms. Aisilnn Goldsmith, POLYSOMNOGRAPHY TECH 06/09/2019 06/09/2019 06/09/2019 4:20 PM C DT documented as of this encounter Care Teams Windows Application Developer Relationship Specialty Start Date End Date Wilber Cleaning Jr., MD [address] [place] [address] PCP - General 07/03/16 07/15/20 Ryann Galdamez PA [address] [place] [address] PCP - General Aurist 07/16/20 04/01/21 Ryann Galdamez PA [address] [place] [address] PCP - General Aurist 04/02/21 01/22/22 Cuba Larsen MD [address] [address] PCP - General Family Medicine 01/23/22 Chris Mendes MD [address] [place] [address] Referring Physician Cardiology 12/23/21 Keli Orozco, laundry attendantButt Welder Cardiology 12/23/21 04/15/23 Alysa Newton, RN [address] [place] [address] Butt Welder Cardiology 12/23/21 Keli Orozco, mud worker Failure Coordinator 04/02/23 4 Keli Orozco, mud worker Failure Coordinator Transplant 04/15/23 Tami Mcknight mud worker Failure Coordinator Cardiology 09/14/23 documented as of this encounter
--- OUTSIDE RECORDS SUMMARY | 2024-03-13 01:19 | XMS_ITS | Encounter Summary ---
Author Organization [facility] Facility Care Team Providers Care Automatic Presser Name Role Phone Unavailable Primary Care Provider Unavailabl e Encounter Details Date Type Department Care Team (Late st Contact Info) Description 08/19/2007 11:30 AM CDT Hospital Encounter [facility] CLINCON[facility]et Leonard MD [address] [facility] [address] [place] [address] Social History Tobacco Use Types Packs/Day Years Used Date Smoking Tobacco: Never Assessed Comments Unknown Sex and Gender Information Value Date Recorded Sex Assigned at Not on file Legal Sex Female 4:20 AM PATIENT SAFETY COORDINATOR Gender Identity Not on file Sexual Orientation Not on file documented as of this encounter Plan of Treatment Not on file documented as of this encounter Visit Diagnoses Not on filedocumented in this encounter
--- OUTSIDE RECORDS SUMMARY | 2024-03-13 01:19 | XMS_ITS | Encounter Summary ---
Author Organization [facility] Facility Care Team Providers Care Bail Bonding Agent Name Role Phone Unavailable Primary Care Provider Unavailabl e Encounter Details Date Type Department Care Team (Latest Contact Info) Description 05/29/2010 9:01 AM CDT - 06/04/2010 11:59 PM CDT Hospital Encounter [facility] CLINCON[facility] Donaldo French MD [address] [place] [address] Thyrotoxicosis; Nervousness; Atrial fibrillation (CMS/HCC) (HCC) Social History Tobacco Use Types Packs/Day Years Used Date Smoking Tobacco: Never Assessed Comments Unknown Sex and Gender Information Value Date Recorded Sex Assigned at Not on file Legal Sex Female 4:20 AM MUTUEL TELLER Gender Identity Not on file Sexual Orientation [...] as of this encounter Visit Diagnoses Diagnosis Thyrotoxicosis Thyrotoxicosis without mention of goiter or other cause, without mention of thyrotoxic crisis or storm Nervousness Atrial fibrillation (CMS/HCC) (HCC) Atrial fibrillation documented in this encounter
--- OUTSIDE RECORDS SUMMARY | 2024-03-13 01:19 | XMS_ITS | Encounter Summary ---
Author Organization [facility] Medical Group Address [address] [place] [address] Care Team Providers Care Fender Finisher Name Role Phone Hermila Calhoun MD, Wilber Martinez Primary Care Provider Ryann Galdamez Primary Care Provider [phone] Ryann Galdamez Primary Care Provider [phone] Chris Mendes MD Unavailable [phone] Keli Orozco RN Unavailable Unavailable Alysa Newton RN Unavailable [phone] Cuba Larsen MD Primary Care Provider [phone] Keli Orozco RN Unavailable Unavailable Keli Orozco RN Unavailable Unavailable Tami Mcknight RN Unavailable Unavailab le Encounter Details Date Type Department Care Team (Late st Contact Info) Description 04/27/2013 Orders Only [facility] Information Management [address] [place] [address] Scanning, Provider Social History Tobacco Use Types Packs/Day Years Used Date Smoking Tobacco: Never Assessed Comments Unknown Sex and Gender Information Value Date Recorded Sex Assigned at Not on file Legal Sex Female 4:20 AM 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 Aislinn Goldsmith, APPEALS REPRESENTATIVE 06/09/2019 06/09/2019 06/09/2019 4:20 PM C DT documented as of this encounter Care Teams Fender Finisher Relationship Specialty Start Date End Date Wilber Cleaning Jr., MD [address] [place] [address] PCP - General 07/03/16 07/15/20 Ryann Galdamez PA [address] [place] [address] PCP - General Business Development Associate 07/16/20 04/01/21 Ryann Galdamez PA [address] [place] [address] PCP - General Business Development Associate 04/02/21 01/22/22 Cuba Larsen MD [address] [address] PCP - General Family Medicine 01/23/22 Chris Mendes MD [address] [place] [address] Referring Physician Cardiology 12/23/21 Keli Orozco, lacquer shaderSafety Trainer Cardiology 12/23/21 04/15/23 Alysa Newton, RN [address] [address] Safety Trainer Cardiology 12/23/21 Keli Orozco, utility worker film processing Failure Coordinator 04/02/23 4 Keli Orozco, utility worker film processing Failure Coordinator Transplant 04/15/23 Tami Mcknight utility worker film processing Failure Coordinator Cardiology 09/14/23 documented as of this encounter
--- OUTSIDE RECORDS SUMMARY | 2024-03-13 01:19 | XMS_ITS | Encounter Summary ---
Author Organization [facility] Facility Care Team Providers Care Navy Diver Name Role Phone Unavailable Primary Care Provider Unavailabl e Encounter Details Date Type Department Care Team (Late st Contact Info) Description 01/12/2013 1:50 PM CDT - 01/12/2013 4:00 PM CDT Hospital Encounter [facility] Catarina Huerta MD [address] [place] [address] Social History Tobacco Use Types Packs/Day Years Used Date Smoking Tobacco: Never Assessed Comments Unknown Sex and Gender Information Value Date Recorded Sex Assigned at Not on file Legal Sex Female 4:20 AM WASH TUB 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
== END 2024-03-06 05:23 ==
PROVIDERS: Emergency Provider Emergency Medicine; PCP Family Medicine
DX: J18.9 Pneumonia, unspecified organism (principal); Z20.822 Contact with and (suspected) exposure to COVID-19; I50.9 Heart failure, unspecified; I48.20 Chronic atrial fibrillation, unspecified; E78.2 Mixed hyperlipidemia; E03.8 Other specified hypothyroidism; E11.9 Type 2 diabetes mellitus without complications; G47.33 Obstructive sleep apnea (adult) (pediatric); K21.9 Gastro-esophageal reflux disease without esophagitis; F41.1 Generalized anxiety disorder; Z66 Do not resuscitate; Z86.711 Personal history of pulmonary embolism; Z86.73 Personal history of transient ischemic attack (TIA), and cerebral infarction without residual deficits; Z79.899 Other long term (current) drug therapy; Z90.710 Acquired absence of both cervix and uterus; Z90.49 Acquired absence of other specified parts of digestive tract; Z79.84 Long term (current) use of oral hypoglycemic drugs; Z79.01 Long term (current) use of anticoagulants
CPT/HCPCS: 36415; 71046; 80053; 85025; 87637; 99283; J7040

== ENCOUNTER 2024-03-18 06:51 | Inpatient (IN) | payer OTHER, SELFPAY ==
[2024-03-18] VITALS (27 sets, daily range): BP systolic 114–175; BP diastolic 96–122; PULSE 85–126; RESP 15–23; TEMP 36.6–36.9; O2SAT 92–98; BMI 36.6
--- NOTE | ~2024-03-18 | XR_ITS ---
EXAMINATION: XR chest 1V portable DATE: 03/18/2024 09:41 INDICATION: Fluid retention. TECHNIQUE: frontal view of the chest was obtained. COMPARISON: Chest radiograph dated and CT dated 02/26/2024 FINDINGS: Mild opacities in the left lower lung zone which could represent atelectasis or pneumonia. Right lung is clear. No pulmonary edema, pleural effusion or pneumothorax. Cardiomegaly. Enlargement of the panda tral pulmonary arteries consistent with pulmonary arterial hypertension. Mild thoracic dextrocurvatur e with severe spondylosis. IMPRESSION: 1. Mild opacities in the left lower lung zone which could represent atelectasis or pneumonia. 2. Cardiomegaly and enlargement of the central pulmonary arteries consistent with pulmonary arterial hypertension. Reviewed, dictated and finalized at location B. ASSOCIATE IMPRESSION: 1. Mild opacities in the left lower lung zone which could represent atelectasis or pneumonia. 2. Cardiomegaly and enlargement of the central pulmonary arteries consistent wi th pulmonary arterial hypertension.
--- NOTE | ~2024-03-18 | CT_ITS ---
EXAMINATION:CT diagnostic chest w con DATE: 03/18/2024 10:22 INDICATION: Pneumonia. TECHNIQUE: Computed tomography (CT) of the chest was performed with 75 mL Omnipaque 350 intravenous c ontrast. Automated exposure control and iterative reconstruction technique were employed. The dose-le ngth product (DLP) was 327.89 mGy-cm. COMPARISON: Chest CT 02/26/2024 FINDINGS: A calcified right lung nodule is consistent with old granulomatous disease. There is mild a telectasis bilaterally. There are small pleural effusions. There is smooth septal thickening in the u pper lungs, consistent with mild pulmonary edema. Cardiomegaly is noted. There is a small pericardial effusion. There is a small area of pericardial calcification. There is no pulmonary embolus. There i s severe cervical and thoracic spondylosis. There is a chronic compression fracture of L1. IMPRESSION: 1. Mild pulmonary edema. 2. Small pleural effusions. 3. Small pericardial effusion with small are of calcific pericarditis. Reviewed, dictated and finalized at location A. H MERCERIZING SUPERVISOR
--- NOTE | ~2024-03-18 | US_ITS ---
EXAMINATION: US abdomen limited DATE: 03/18/2024 13:49 INDICATION: Elevated liver function tests TECHNIQUE: Multiple grayscale and Doppler ultrasound images of the abdomen were obtained. COMPARISON: CT dated 02/26/2024 FINDINGS: The pancreatic head and body are normal in appearance. The pancreatic tail is not visualized. Liver has normal echogenicity and contour, with a smooth surface. No liver lesion identified. No intrahepat ic biliary duct dilation suspected. Portal venous flow was seen in the hepatopetal, normal direction and has normal Doppler waveform. The visualized proximal to mid inferior vena cava and aorta are norm al. Status post reported cholecystectomy. The common bile duct measures 8 mm, which is within normal limits accounting for age and prior cholecystectomy. The right kidney measures 12.7 x 5.1 cm with nor mal contour and echogenicity. 4.3 cm anechoic right renal cyst. There is mild right hydroureteronephr osis. IMPRESSION: 1. Mild right hydroureteronephrosis. Consider CT to assess for obstructing stone or mass. 2. Otherwise unremarkable right upper quadrant ultrasound with common bile duct measuring 8 mm which is for age and postcholecystectomy. Reviewed, dictated and finalized at location B. DENTIAL SALES REP IMPRESSION: 1. Mild right hydroureteronephrosis. Consider CT to assess for obstructing ston e or mass. 2. Otherwise unremarkable right upper quadrant ultrasound with common bile duct measuring 8 mm which is for age and postcholecystectomy.
--- NOTE | 2024-03-18 08:43 | ECG_ITS ---
Test Date: 2024-03-18 08:48:30 Measurements Intervals Drake Rate: 122 P: 0 NH: 0 QRS: 107 QRSD: 100 T: 14 QT: 328 QTc: 468 Interpretive Statements ATRIAL FIBRILLATION WITH RAPID VENTRICULAR RESPONSE MARKED RIGHT AXIS DEVIATION [QRS AXIS > 100] Compared to ECG 02/26/2024 04:27:14 Right-axis deviation now present Poor R-wave progression no longer present Electronically Signed On 03-21-2024 15:00:50 HELICOPTER PILOT INSTRUCTOR by Alphonso Douglas M.D.
--- NOTE | 2024-03-18 09:35 | ED_ITS ---
HPI - Nausea/Vomiting/Diarrhea General Chief complaint: Nausea/Vomiting/Diarrhea <Mago Bird PA-C - Last Filed: 03/18/24 13:08> Stated complaint: a-fib , n/v <Mago Bird PA-C - Last Filed: 03/18/24 13:08> Time Seen by Provider: 03/18/24 09:03 <Mago Bird PA-C - Last Filed: 03/18/24 13:08> History of Present Illness HPI Narrative: 84-year-old female with history of AFib on Eliquis, anxiety, hypothyroidism, type 2 diabetes, GERD presents to the ED via EMS from [facility] with some a bedside for fluid retention and shortness of breath. Patient states she is supposed to be taking Lasix but believes that the [facility] staff has not been giving her Lasix for several weeks. She states over the past 4 weeks she is an approximately 20 lb and has become short of breath with exertion as well as worsening lower extremity edema. States she has been asking the [facility] staff she had been receiving Lasix and they continued to tolerate that she had, however last night she spoke with one of the nurses and found out she had not been receiving Lasix. Patient states she believe she is supposed to be on Lasix. States she had an appointment with her addiction treatment counselor 4 weeks ago and was told by her addiction treatment counselor that there were no medication changes. Per [facility] chart, she is on spironolactone but not lasix. She is also reporting some dysuria over the past couple of days. She denies chest pain, abdominal pain, fever. She states that she has had some nausea and dry heaving because of the postnasal drip. Denies cough. She has known AFib and has been taking metoprolol for rate control. Denies palpitations, lightheadedness or dizziness, chest pain. Most recent echo on 02/12/2024 shows an EF of 55-60% with an indeterminate left ventricular diastolic function. <Mago Bird PA-C - Last Filed: 03/18/24 13:08> Related Data Home medications: Home Medications ?Medication ?Instructions ?Recorded ?Confirmed ?Last Taken ?Type apixaban 5 mg tablet (Eliquis) 5 mg PO Q12H 06/28/19 03/19/24 12/28/23 History rosuvastatin 20 mg tablet 20 mg PO HS 12/14/19 03/19/24 Unknown History cholecalciferol (vitamin D3) 25 50 mcg PO DAILY 05/12/22 03/19/24 Unknown History mcg (1,000 unit) capsule fluoxetine 20 mg capsule 40 mg PO DAILY 05/12/22 03/19/24 Unknown History glipizide 10 mg tablet 10 mg PO BID 05/12/22 03/19/24 Unknown History spironolactone 25 mg tablet 50 mg PO DAILY 05/12/22 03/19/24 Unknown History acetaminophen 500 mg tablet 1,000 mg PO Q6H PRN Pain (Scale 12/30/23 03/19/24 Unknown History Score 1-3) calcium carbonate (Tums) 400 mg PO Q6H PRN Acid Reflux 12/30/23 03/19/24 Unknown History metformin 500 mg tablet 500 mg PO BIDWMEAL 12/30/23 03/19/24 Unknown History ondansetron 4 mg disintegrating 4 mg PO TID PRN Nausea And Vomiting 02/11/24 03/19/24 Unknown History tablet pantoprazole 40 mg tablet,delayed 40 mg PO BID 02/11/24 03/19/24 Unknown History release (Protonix) alprazolam 0.5 mg tablet 0.5 mg PO BID 03/19/24 03/19/24 Unknown History loratadine 10 mg tablet (Claritin) 10 mg PO DAILY 03/19/24 03/19/24 Unknown History metoprolol tartrate 50 mg tablet 75 mg PO Q12HR 03/19/24 03/19/24 Unknown History sucralfate 1 gram tablet 1 g PO ACHS 03/19/24 03/19/24 Unknown History <Mago Bird PA-C - Last Filed: 03/18/24 13:08> Allergies/Adverse reactions: Allergies Allergy/AdvReac Type Severity Reaction Status Date / Time lisinopril Allergy Severe cough Verified 03/18/24 10:07 amlodipine Allergy Difficulty Verified 03/18/24 10:07 Breathing MILI Inhibitors AdvReac Severe cough Verified 03/18/24 10:07 atorvastatin AdvReac Mild Muscle Pain Verified 03/18/24 10:07 citalopram AdvReac Mild Unknown Verified 03/18/24 10:07 hydrochlorothiazide AdvReac Dizziness Verified 03/18/24 10:07 <Mago Bird PA-C - Last Filed: 03/18/24 13:08> Review of Systems 2 Review of Systems: All systems reviewed & are unremarkable except as noted in HPI and below <Mago Bird PA-C - Last Filed: 03/18/24 13:08> [facility] Past Medical History Medical History: Medical History Valvular heart disease severe aortic stenosis, moderate mitral valve stenosis, and [id number] mitral valve regurgitation on echocardiogram in 01/2024 Duodenal ulcer (12/2023) Chronic anemia Hypothyroidism 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) Obstructive sleep apnea on CPAP Heart failure with preserved ejection fraction Chronic anticoagulation Pulmonary embolus Anxiety Zenkers diverticulum Chronic atrial fibrillation Gastro-esophageal reflux disease without esophagitis Generalized anxiety disorder Mixed hyperlipidemia Type 2 diabetes mellitus without complications <Mago Bird PA-C - Last Filed: 03/18/24 13:08> Surgical History Surgical History: Surgical History History of open reduction and internal fixation (ORIF) procedure repair left femur fracture History of hysterectomy History of hip surgery History of cholecystectomy History of tonsillectomy <Mago Bird PA-C - Last Filed: 03/18/24 13:08> Family History Family History: Family History Father Family history of cardiovascular disease Family history of coronary artery disease Depression Mother Family history of cardiovascular disease Family history of coronary artery disease Grandparent Cerebrovascular accident <Mago Bird PA-C - Last Filed: 03/18/24 13:08> Social History Social History: Social History (Updated 03/18/24 @ 19:48 by Mary Alice Freed PA-C) Social History: Surrogate medical decision maker: Homer Culp, margot. Code status: Do not resuscitate. Smoking status: Never smoker Second hand tobacco smoke exposure: Yes Alcohol intake: never Substance use: never Substance use type: does not use Do You Feel Safe in your Home?: No Lack of Transportation: No Lack of Food: Never True Current Housing: I Have Housing Concerned About Future Housing: No Difficulty Paying Gas/Electric Bills: No Difficulty Paying for Meds: No Currently Unemployed: No Education: High School Diploma/GED Difficulty w/ Childcare or Family Care: No Additional living arrangements comments: . Lives in assisted living at [facility]. Spiritual care concerns: No <Mago Bird PA-C - Last Filed: 03/18/24 13:08> Exam 2 Narrative: GENERAL: Well-appearing, well-nourished, and in no acute distress. HEAD: Normocephalic, atraumatic. EYES: EOMI. ENT: Nares clear, no rhinorrhea or epistaxis. Mucous membranes moist. NECK: Supple. CHEST: Clear to auscultation. No respiratory distress. HEART: Regular rate and rhythm. No murmur heard. Normal peripheral pulses. ABDOMEN: Soft, nontender, nondistended, normal active bowel sounds. EXTREMITIES: 4+ pitting edema to bilateral lower extremities extending to the proximal tibia with no overlying erythema, warmth, tenderness. Negative Homans bilaterally SKIN: Warm, dry, no rash. NEURO: No focal deficits. Alert and oriented x3 <Mago Bird PA-C - Last Filed: 03/18/24 13:08> Course [employer]/PA Physician Supervision Discussed case with me. It does appear that calcific pericarditis can form somewhat more quickly than initially thought. It appears this occasionally happens in viral or bacterial cases moreso than autoimmune. Regardless, patient will require admission and concur with this and consulting cardiology. I otherwise did not personally evaluate the patient and was not directly involved in their care. <Saadia Roldan MD - Last Filed: 03/20/24 14:40> Vital Signs Vital signs: Vital Signs Temperature 98.5 F 03/18/24 06:55 Pulse Rate 118 H 03/18/24 06:55 Respiratory Rate 20 03/18/24 06:55 Blood Pressure 116/98 H 03/18/24 06:55 Pulse Oximetry 96 03/18/24 06:55 Oxygen Delivery Room Air 03/18/24 06:55 Temperature 98.1 F 03/20/24 06:00 Pulse Rate 108 H 03/20/24 12:00 Respiratory Rate 18 03/20/24 06:00 Blood Pressure 154/93 H 03/20/24 06:00 Pulse Oximetry 100 03/20/24 06:00 Oxygen Delivery Room Air 03/20/24 09:20 Fraction of Inspired Oxygen 21 03/19/24 09:44 <Mago Bird PA-C - Last Filed: 03/18/24 13:08> Vital Signs Temperature 98.5 F 03/18/24 06:55 Pulse Rate 118 H 03/18/24 06:55 Respiratory Rate 20 03/18/24 06:55 Blood Pressure 116/98 H 03/18/24 06:55 Pulse Oximetry 96 03/18/24 06:55 Oxygen Delivery Room Air 03/18/24 06:55 Temperature 98.1 F 03/20/24 06:00 Pulse Rate 108 H 03/20/24 12:00 Respiratory Rate 18 03/20/24 06:00 Blood Pressure 154/93 H 03/20/24 06:00 Pulse Oximetry 100 03/20/24 06:00 Oxygen Delivery Room Air 03/20/24 09:20 Fraction of Inspired Oxygen 21 03/19/24 09:44 <Saadia Roldan MD - Last Filed: 03/20/24 14:40> MDM - Nausea/Vomiting/Diarrhea MDM Narrative Medical decision making narrative: 84-year-old female presents to the emergency department for fluid retention and shortness of breath over the past 4 weeks. Patient believes she is supposed to be taking Lasix but she has not been receiving Lasix. She is on spironolactone per chart review. Triage vital significant for tachycardia 118. EKG does show AFib with RVR with a rate of 122, no ischemic changes. She does have a history of AFib and is on metoprolol for rate control. Exam is significant for 4+ pitting edema to bilateral lower extremities. Lab work shows chronic anemia, no leukocytosis. Chemistries with elevation in AST, ALT and alk-phos likely secondary to volume overload. Her BNP is acutely elevated to 9110. Magnesium low at 1.4, this is been intravenously repleted. TSH is also elevated at 6.410, free T4 pending. Presentation is not consistent with edema,. Viral swabs are negative. Chest x-ray shows atelectasis versus pneumonia, therefore CT chest obtained which reveals mild pulmonary edema, small pleural effusions and small pericardial effusion with small area of calcific pericarditis. Patient was updated on workup. Most recent echo on 02/12/2024 shows no pericardial effusion. 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 Discussed findings with addiction treatment counselor, Dr. [place], who agrees and advises admission for diuresis and repeat echo. Agreeable with this. She did receive 20 mg of Lasix in the ED with significant urine output. Discussed with hospitalist, Dr. Lemus, who agrees to admission to [facility]. Patient was given 5 mg of metoprolol IV push for AFib with RVR. <Mago Bird PA-C - Last Filed: 03/18/24 13:08> Lab Data Result diagrams: 03/20/24 05:29 03/20/24 05:29 <Mago Bird PA-C - Last Filed: 03/18/24 13:08> Labs: Lab Results 03/18/24 Range/Units 09:50 WBC 5.9 (4.5-10.0) K/mm3 RBC 3.75 L (4.2-5.4) M/mm3 Hgb 9.8 L (12.0-15.0) g/dL Hct 32.0 L (37.0-47.0) % MCV 85.3 (80-100) fl MCH 26.1 (26-34) pg MCHC 30.6 L (32-36) g/dl RDW 18.0 H (11.5-14.5) % Plt Count 405 H (150-375) k/mm3 MPV 9.6 (7.4-10.4) fl Immature Gran % (Auto) 0.5 (0-0.5) % Neut % (Auto) 77.3 H (45.5-73.1) % Lymph % (Auto) 12.8 L (18.3-44.2) % [place] % (Auto) 8.6 H (2.6-8.5) % Eos % (Auto) 0.3 (0-4.4) % Baso % (Auto) 0.5 (0.2-1.2) % Lymph # (Auto) 0.76 L (0.9-3.2) K/mm3 [place] # (Auto) 0.5 (0.1-0.6) K/mm3 Eos # (Auto) 0.0 (0-0.3) K/mm3 Baso # (Auto) 0.0 (0.0-0.1) K/mm3 Abs Immat Gran (auto) 0.03 (0.00-0.031) K/mm3 Absolute Neuts (auto) 4.6 (1.3-6.7) K/mm3 Absolute Nucleated RBC 0.020 H (0.0-0.012) K/mm3 Nucleated RBC % 0.3 H (0.0-0.2) % PT 21.2 H (11.1-14.7) Seconds INR 1.8 APTT 29.5 (22.3-36.8) Seconds Sodium 131 L (137-145) mmol/L Potassium 4.3 (3.4-5.0) mmol/L Chloride 102 (98-107) mmol/L Carbon Dioxide 25 (22-30) mmol/L Anion Gap 4 (4-12) mmol/L BUN 16 (7-17) mg/dL Creatinine 0.60 L (0.7-1.0) mg/dL Estim Creat Clear Calc 64 ml/min Estimated GFR > 60 (59 - ) Glucose 166 H (65-110) mg/dL Calcium 9.3 (8.4-10.2) mg/dL Magnesium 1.4 L (1.6-2.3) mg/dL Total Bilirubin 0.9 (0.2-1.3) mg/dL AST 78 H (14-36) U/L ALT 187 H (6-35) U/L Alkaline Phosphatase 145 H (38-126) U/L NT-Pro-B Natriuret Pep 9110 H (19.9-100) pg/mL Total Protein 7.0 (6.3-8.2) g/dL Albumin 3.6 (3.5-5.1) g/dL TSH (Reflex) 6.410 H (0.465-4.68) uIU/mL Free T4 1.75 (0.78-2.19) ng/dL Total T3 0.82 L (0.97-1.69) NG/ML Hepatitis A IgM Ab Negative (Negative) Hep Bs Antigen Negative (Negative) Hep B Core IgM Ab Negative (Negative) Hepatitis C Ab Screen Negative (Negative) Influenza A (RT-PCR) Negative (Negative) Influenza B (RT-PCR) Negative (Negative) RSV (RT-PCR) Negative (Negative) SARS-CoV-2 RNA (RT-PCR) Negative (Negative) <Mago Bird PA-C - Last Filed: 03/18/24 13:08> Lab Results 03/18/24 Range/Units 09:50 WBC 5.9 (4.5-10.0) K/mm3 RBC 3.75 L (4.2-5.4) M/mm3 Hgb 9.8 L (12.0-15.0) g/dL Hct 32.0 L (37.0-47.0) % MCV 85.3 (80-100) fl MCH 26.1 (26-34) pg MCHC 30.6 L (32-36) g/dl RDW 18.0 H (11.5-14.5) % Plt Count 405 H (150-375) k/mm3 MPV 9.6 (7.4-10.4) fl Immature Gran % (Auto) 0.5 (0-0.5) % Neut % (Auto) 77.3 H (45.5-73.1) % Lymph % (Auto) 12.8 L (18.3-44.2) % [place] % (Auto) 8.6 H (2.6-8.5) % Eos % (Auto) 0.3 (0-4.4) % Baso % (Auto) 0.5 (0.2-1.2) % Lymph # (Auto) 0.76 L (0.9-3.2) K/mm3 [place] # (Auto) 0.5 (0.1-0.6) K/mm3 Eos # (Auto) 0.0 (0-0.3) K/mm3 Baso # (Auto) 0.0 (0.0-0.1) K/mm3 Abs Immat Gran (auto) 0.03 (0.00-0.031) K/mm3 Absolute Neuts (auto) 4.6 (1.3-6.7) K/mm3 Absolute Nucleated RBC 0.020 H (0.0-0.012) K/mm3 Nucleated RBC % 0.3 H (0.0-0.2) % PT 21.2 H (11.1-14.7) Seconds INR 1.8 APTT 29.5 (22.3-36.8) Seconds Sodium 131 L (137-145) mmol/L Potassium 4.3 (3.4-5.0) mmol/L Chloride 102 (98-107) mmol/L Carbon Dioxide 25 (22-30) mmol/L Anion Gap 4 (4-12) mmol/L BUN 16 (7-17) mg/dL Creatinine 0.60 L (0.7-1.0) mg/dL Estim Creat Clear Calc 64 ml/min Estimated GFR > 60 (59 - ) Glucose 166 H (65-110) mg/dL Calcium 9.3 (8.4-10.2) mg/dL Magnesium 1.4 L (1.6-2.3) mg/dL Total Bilirubin 0.9 (0.2-1.3) mg/dL AST 78 H (14-36) U/L ALT 187 H (6-35) U/L Alkaline Phosphatase 145 H (38-126) U/L NT-Pro-B Natriuret Pep 9110 H (19.9-100) pg/mL Total Protein 7.0 (6.3-8.2) g/dL Albumin 3.6 (3.5-5.1) g/dL TSH (Reflex) 6.410 H (0.465-4.68) uIU/mL Free T4 1.75 (0.78-2.19) ng/dL Total T3 0.82 L (0.97-1.69) NG/ML Hepatitis A IgM Ab Negative (Negative) Hep Bs Antigen Negative (Negative) Hep B Core IgM Ab Negative (Negative) Hepatitis C Ab Screen Negative (Negative) Influenza A (RT-PCR) Negative (Negative) Influenza B (RT-PCR) Negative (Negative) RSV (RT-PCR) Negative (Negative) SARS-CoV-2 RNA (RT-PCR) Negative (Negative) <Saadia Roldan MD - Last Filed: 03/20/24 14:40> Discharge Plan Discharge Clinical Impression: Acute pericardial effusion, Hypomagnesemia, Atrial fibrillation with RVR Pulmonary edema Qualifiers: Chronicity: chronic Qualified Code(s): J81.1 - Chronic pulmonary edema Volume overload Qualifiers: Hypervolemia type: unspecified Qualified Code(s): E87.70 - Fluid overload, unspecified <Mago Bird PA-C - Last Filed: 03/18/24 13:08> Patient Disposition: Still a Patient <Mago Bird PA-C - Last Filed: 03/18/24 13:08> Condition: Stable <Mago Bird PA-C - Last Filed: 03/18/24 13:08>
[2024-03-18 09:56] LABS: Basophils Percent Auto 0.5 % (0.2-1.2); Eosinophils Percent Auto 0.3 % (0-4.4); Hemoglobin 9.8 g/dL (12.0-15.0); Immature Granulocyte Absolute 0.03 K/mm3 (0.00-0.031); Immature Granulocyte Percent A 0.5 % (0-0.5); Lymphocytes Absolute Auto 0.76 K/mm3 (0.9-3.2); Lymphocytes Percent Auto 12.8 % (18.3-44.2); Mean Corpuscular HGB Conc 30.6 g/dl (32-36); Mean Corpuscular Hemoglobin 26.1 pg (26-34); Mean Corpuscular Volume 85.3 fl (80-100); Mean Platelet Volume 9.6 fl (7.4-10.4); Monocytes Absolute Auto 0.5 K/mm3 (0.1-0.6); Monocytes Percent Auto 8.6 % (2.6-8.5); Neutrophils Absolute Auto 4.6 K/mm3 (1.3-6.7); Neutrophils Percent Auto 77.3 % (45.5-73.1); Nucleated Red Blood Cells Perc 0.3 % (0.0-0.2); Platelet Count Result 405 k/mm3 (150-375); Red Blood Count 3.75 M/mm3 (4.2-5.4); White Blood Count 5.9 K/mm3 (4.5-10.0)
[2024-03-18] MEDS: FUROSEMIDE INJ 40 MG/4 ML VIAL 20 MG IV PUSH (10:05)
[2024-03-18 10:07] LABS: Alanine Aminotransferase 187 U/L (6-35); Albumin Level 3.6 g/dL (3.5-5.1); Alkaline Phosphatase 145 U/L (38-126); Anion Gap 4 mmol/L (4-12); Aspartate Amino Transferase 78 U/L (14-36); Bilirubin,Total 0.9 mg/dL (0.2-1.3); Blood Urea Nitrogen 16 mg/dL (7-17); Calcium 9.3 mg/dL (8.4-10.2); Carbon Dioxide 25 mmol/L (22-30); Chloride 102 mmol/L (98-107); Estimated CRCL calculation 64 ml/min; Estimated Glomerular Filt Rate > 60; Glucose 166 mg/dL (65-110); Magnesium 1.4 mg/dL (1.6-2.3); Potassium 4.3 mmol/L (3.4-5.0); Sodium 131 mmol/L (137-145)
[2024-03-18 10:14] LABS: INR 1.8; Partial Thromboplastin Time 29.5 Seconds (22.3-36.8); Prothrombin Time 21.2 Seconds (11.1-14.7)
[2024-03-18 10:21] LABS: NT Pro B Type Natriuretic Pept 9110 pg/mL (19.9-100)
[2024-03-18 10:32] LABS: Influenza A QL RT-PCR Negative (Negative); Influenza B QL RT-PCR Negative (Negative); RSV RNA, RT-PCR Negative (Negative); SARS-CoV-2 RNA PCR Negative (Negative)
[2024-03-18] MEDS: MAGNESIUM SULF 2 GM/WATER 50ML 2 GM/50 ML BAG IVPB (10:53)
[2024-03-18 12:03] LABS: Free T4 Free Thyroxine Reflex 1.75 ng/dL (0.78-2.19)
[2024-03-18 12:20] LABS: Add Urine Microscopic? NO; Appearance Urine Clear (Clear); Bilirubin Urine Negative (Negative); Blood Urine Negative (Negative); Color Urine Yellow (Yellow); Glucose Urine UA Negative (Negative); Ketones Urine Negative (Negative); Leukocyte Esterase Ur Negative LEU/UL (Negative); Nitrate Urine Negative (Negative); Protein Urine Negative (Negative); Specific Grav Ur 1.011 (1.001-1.035); Urobilinogen Urine 0.2 mg/dL (<2.0)
[2024-03-18] MEDS: METOPROLOL TARTRATE INJ 5 MG/5 ML VIAL IV PUSH (12:29)
--- NOTE | 2024-03-18 12:40 | PM.IMHP ---
H&P: HPI History of Present Illness Date/Time: 03/18/24 12:40 Chief Complaint: Rapid heart rate. Narrative: This is a pleasant 84-year-old female with history of stroke, atrial fibrillation on chronic anticoagulation, severe aortic valve stenosis and moderate mitral valve stenosis on echocardiogram anion January 2024, hypertension, dyslipidemia, heart failure with preserved ejection fraction, pulmonary embolism, obstructive sleep apnea on CPAP, type 2 diabetes mellitus, duodenal ulcer, Zenker's diverticulum, and gastroesophageal reflux disease who presented to the emergency department via EMS from [facility] for evaluation of the rapid heart rate. The patient provides the following history. The patient tells me that she ?has not felt well for quite some time? and most recently she had double pneumonia which has mainly resolved. It is not necessarily unusual for her to have nausea related to postnasal drip and this morning she had an episode of emesis which was essentially mucous. Vital signs were checked at her facility, she was tachycardic, was referred to the ED. She has no complaints of palpitations or racing heart but she does endorse orthopnea and increasing lower extremity edema since furosemide was discontinued about 4 weeks ago; she is not certain as to why the furosemide was discontinued. At the time my evaluation she is feeling in her usual state of health and reports being a bit anxious and is asking for alprazolam. She denies fever, chills, sweats, chest pain, pleuritic pain, palpitations, abdominal pain, current nausea, diarrhea, dysuria, and calf pain. In the ED: She was in rapid atrial fibrillation on arrival with rates in the 120s. The remainder of her vital signs were stable. Labs were significant for a WBC count 5.9, 9.8 sodium 131, glucose 166, magnesium 1 4, AST 70, ALT 187, alkaline phosphatase 145, proBNP 9110. Urinalysis was unremarkable. Viral panel was negative. Chest CT showed mild pulmonary edema, small pleural effusions, and a small pericardial effusion with a small area of pericardial calcification. She was given metoprolol tartrate 5 mg IV, furosemide 20 mg IV, and magnesium sulfate 2 g IV. She is being admitted in this setting for further treatment. Review of Systems Review of Systems: 12 systems were reviewed and are negative except for as per HPI. 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) Obstructive sleep apnea on CPAP Heart failure with preserved ejection fraction Chronic anticoagulation Pulmonary embolus Anxiety Zenkers diverticulum Chronic atrial fibrillation Gastro-esophageal reflux disease without esophagitis Generalized anxiety disorder Mixed hyperlipidemia Type 2 diabetes mellitus without complications Surgical History Surgical History History of open reduction and internal fixation (ORIF) procedure repair left femur fracture History of hysterectomy History of hip surgery History of cholecystectomy History of tonsillectomy Family History Family History Father Family history of cardiovascular disease Family history of coronary artery disease Depression Mother Family history of cardiovascular disease Family history of coronary artery disease Grandparent Cerebrovascular accident Social History Social History (Updated 03/18/24 @ 19:48 by Mary Alice Fered PA-C) Social History: Surrogate medical decision maker: Homer Culp, son. Code status: Do not resuscitate. Smoking status: Never smoker Second hand tobacco smoke exposure: Yes Alcohol intake: never Substance use: never Substance use type: does not use Do You Feel Safe in your Home?: No Lack of Transportation: No Lack of Food: Never True Current Housing: I Have Housing Concerned About Future Housing: No Difficulty Paying Gas/Electric Bills: No Difficulty Paying for Meds: No Currently Unemployed: No Education: High School Diploma/GED Difficulty w/ Childcare or Family Care: No Additional living arrangements comments: . Lives in assisted living at [facility]. Spiritual care concerns: No Meds Home Medications and Allergies Home Medications ?Medication ?Instructions ?Recorded ?Confirmed ?Type apixaban 5 mg tablet (Eliquis) 5 mg PO Q12H 06/28/19 03/02/24 History rosuvastatin 20 mg tablet 20 mg PO HS 12/14/19 03/02/24 History levothyroxine 25 mcg tablet 50 mcg (2 x 25 mcg) PO DAILY #180 04/27/20 03/02/24 Rx (Synthroid) tabs cholecalciferol (vitamin D3) 25 50 mcg PO DAILY 05/12/22 03/02/24 History mcg (1,000 unit) capsule fluoxetine 20 mg capsule 40 mg PO DAILY 05/12/22 03/02/24 History glipizide 10 mg tablet 10 mg PO BID 05/12/22 03/02/24 History spironolactone 25 mg tablet 50 mg PO DAILY 05/12/22 03/02/24 History lidocaine 5 % topical patch 1 patch topical DAILY #15 ea 10/04/22 03/02/24 Rx (Lidoderm) acetaminophen 500 mg tablet 1,000 mg PO Q6H PRN Pain (Scale 12/30/23 03/02/24 History Score 1-3) calcium carbonate (Tums) 400 mg PO Q6H PRN Acid Reflux 12/30/23 03/02/24 History metformin 500 mg tablet 500 mg PO BIDWMEAL 12/30/23 03/02/24 History methocarbamol 500 mg tablet 500 mg PO TID 12/30/23 03/02/24 History ondansetron 4 mg disintegrating 4 mg PO TID PRN Nausea And Vomiting 02/11/24 03/02/24 History tablet pantoprazole 40 mg tablet,delayed 40 mg PO BID 02/11/24 03/02/24 History release (Protonix) levofloxacin 750 mg tablet 750 mg PO DAILY #4 tabs 02/17/24 03/02/24 Rx methocarbamol 750 mg tablet 750 mg PO TID 14 days #42 tabs 02/17/24 03/02/24 Rx metoprolol tartrate 50 mg tablet 50 mg PO Q12HR #60 tabs 02/17/24 03/02/24 Rx oxycodone 5 mg tablet 5 mg PO Q6H PRN pain #14 tabs 02/17/24 03/02/24 Rx polyethylene glycol 3350 17 gram 17 g PO QAM #30 ea 02/17/24 03/02/24 Rx oral powder packet (Miralax) sucralfate 100 mg/mL oral 1,000 mg (10 mL) PO ACHS #420 mL 02/17/24 03/02/24 Rx suspension famotidine 20 mg tablet 20 mg PO DAILY #30 tabs 02/26/24 03/02/24 Rx fluticasone propionate 50 1 spray intranasal DAILY #16 grams 02/26/24 03/02/24 Rx mcg/actuation nasal spray,suspension (Allergy Relief (fluticasone)) guaifenesin 600 mg tablet, 600 mg PO BID PRN congestion #30 02/26/24 03/02/24 Rx extended release 12 hr (Mucinex) tabs ondansetron 4 mg disintegrating 4 mg PO Q8H PRN nausea and 02/26/24 03/02/24 Rx tablet vomiting #10 tabs Allergies Allergy/AdvReac Type Severity Reaction Status Date / Time lisinopril Allergy Severe cough Verified 03/18/24 10:07 amlodipine Allergy Difficulty Verified 03/18/24 10:07 Breathing MILI Inhibitors AdvReac Severe cough Verified 03/18/24 10:07 atorvastatin AdvReac Mild Muscle Pain Verified 03/18/24 10:07 citalopram AdvReac Mild Unknown Verified 03/18/24 10:07 hydrochlorothiazide AdvReac Dizziness Verified 03/18/24 10:07 Vital Signs Vital Signs - 24 hr 03/18/24 06:55 03/18/24 08:39 03/18/24 09:15 Temperature 98.5 F 97.9 F Pulse Rate 118 H 120 H 97 Respiratory Rate 20 16 20 Blood Pressure 116/98 H 171/101 H Pulse Oximetry 96 94 97 Oxygen Delivery Room Air 03/18/24 10:05 03/18/24 10:05 03/18/24 10:22 Temperature Pulse Rate 106 H 113 H 115 H Respiratory Rate 23 H 23 H 17 Blood Pressure 130/115 H 130/115 H Pulse Oximetry 94 95 98 Oxygen Delivery 03/18/24 10:23 03/18/24 10:31 03/18/24 11:01 Temperature Pulse Rate 116 H 124 H 125 H Respiratory Rate 19 22 H 16 Blood Pressure 156/117 H 175/113 H 147/112 H Pulse Oximetry 97 98 97 Oxygen Delivery 03/18/24 11:31 03/18/24 11:45 03/18/24 12:01 Temperature Pulse Rate 115 H 108 H 110 H Respiratory Rate 19 18 17 Blood Pressure 153/120 H 152/122 H Pulse Oximetry Oxygen Delivery 03/18/24 12:25 03/18/24 12:29 Temperature Pulse Rate 122 H Respiratory Rate Blood Pressure 140/97 H Pulse Oximetry Oxygen Delivery Exam Narrative: General: Well-developed elderly female sitting up in bed in no acute distress. Weight: 91 kg. BMI: 36.7. HEENT: PERRL, EOMI. Sclera anicteric. Moist mucous membranes. Neck: Supple. No significant jugular venous distention. Respiratory: Respirations are nonlabored she is speaking full sentences. Lung sounds are a bit diminished at the bases with faint crackles. Cardiovascular: Irregularly irregular rate and rhythm. Systolic murmur best heard at the upper sternal border. Gastrointestinal: Abdomen is soft, obese, nontender, and nondistended with positive bowel sounds. Skin: Warm and dry. Generalized pallor. Extremities: No cyanosis or clubbing. 3+ pedal edema up to the knees bilaterally. No palpable knots or cords. Negative Lowell sign bilaterally. Peripheral pulses palpable. Neurological: Alert. Cranial nerves 2-12 are grossly intact. No gross focal deficits to casual conversation. Psychiatric: Pleasant and cooperative with appropriate mood. H&P: Results Labs Labs: Short CBC 03/18/24 Range/Units 09:50 WBC 5.9 (4.5-10.0) K/mm3 Hgb 9.8 L (12.0-15.0) g/dL Hct 32.0 L (37.0-47.0) % Plt Count 405 H (150-375) k/mm3 BMP 03/18/24 09:50 Sodium 131 L Potassium 4.3 Chloride 102 Carbon Dioxide 25 BUN 16 Creatinine 0.60 L Glucose 166 H Calcium 9.3 Liver Function 03/18/24 Range/Units 09:50 Total Bilirubin 0.9 (0.2-1.3) mg/dL AST 78 H (14-36) U/L ALT 187 H (6-35) U/L Alkaline Phosphatase 145 H (38-126) U/L Albumin 3.6 (3.5-5.1) g/dL Urine 03/18/24 Range/Units 12:09 Urine Color Yellow (Yellow) Urine Appearance Clear (Clear) Urine pH 7.0 (5.0-9.0) Ur Specific [place] 1.011 (1.001-1.035) Urine Protein Negative (Negative) mg/dL Urine Glucose (UA) Negative (Negative) mg/dL Imaging Chest X-Ray 03/18/24 09:41 IMPRESSION: 1. Mild opacities in the left lower lung zone which could represent atelectasis or pneumonia. 2. Cardiomegaly and enlargement of the central pulmonary arteries consistent with pulmonary arterial hypertension. Chest CT 03/18/24 10:25 IMPRESSION: 1. Mild pulmonary edema. 2. Small pleural effusions. 3. Small pericardial effusion with small are of calcific pericarditis. Assessment and Plan Assessment and plan (1) Atrial fibrillation with rapid ventricular response: Code(s): I48.91 - Unspecified atrial fibrillation Status: Acute (2) CHF exacerbation: Code(s): I50.9 - Heart failure, unspecified Status: Acute (3) Heart failure with preserved ejection fraction: Code(s): I50.30 - Unspecified diastolic (congestive) heart failure Status: Acute (4) Valvular heart disease: Code(s): I38 - Endocarditis, valve unspecified Status: Acute (5) Elevated LFTs: Code(s): R79.89 - Other specified abnormal findings of blood chemistry Status: Acute (6) Pericardial effusion: Code(s): I31.39 - Other pericardial effusion (noninflammatory) Status: Acute (7) Hypomagnesemia: Code(s): E83.42 - Hypomagnesemia Status: Acute (8) Chronic anemia: Code(s): D64.9 - Anemia, unspecified Status: Acute (9) Type 2 diabetes mellitus without complications: Code(s): E11.9 - Type 2 diabetes mellitus without complications Status: Acute (10) Obstructive sleep apnea on CPAP: Code(s): G47.33 - Obstructive sleep apnea (adult) (pediatric) Status: Acute Plan The patient presented to the emergency department for evaluation of rapid heart rate as detailed in HPI. Labs, imaging, EKG, and all reports were personally reviewed. She has chronic atrial fibrillation and is on metoprolol for rate control and apixaban for stroke prophylaxis. Heart rate has improved somewhat with IV metoprolol given in the ED. Continue scheduled metoprolol with close monitoring; adjustments can be made if indicated. She has mild pulmonary edema on chest x-ray and proBNP is higher than what it typically runs. She will be diuresed with close monitoring of volume status, renal function, and electrolytes. Cardiology has been consulted for further recommendations; she requests that we speak with her church musician Dr. Mendes at [place] with any changes. LFTs are a bit elevated, possibly due to passive congestion. She had nausea and vomiting this morning though that resolved with ondansetron and it sounds as though that was more due to postnasal drip than a GI issue. Abdominal exam is benign however will obtain a right upper quadrant ultrasound and check hepatitis panel. Magnesium will be replaced and monitored. Anemia stable on review of previous labs. Initiate sliding scale insulin, Accu-Cheks, and hypoglycemic protocol. CPAP will be provided for the patient to use while hospitalized. Her home medications will be reviewed and resumed as appropriate. Findings and treatment plan were discussed with the patient. Questions were solicited and answered to satisfaction. The patient's medical management will be taken over by the hospitalist team in a.m. Quality VTE Prophylaxis VTE prophylaxis: pharmacologic ordered (on apixaban) The patient has been admitted under observation status. Hospitalist [facility] Advance Care Plan I have confirmed that the patient's Advanced Care Plan is present, code status is documented, or surrogate decision maker is listed in patient medical record.: Yes Medication Reconciliation I have utilized all available resources to obtain, update and review the patients current medications (includes all prescriptions, OTC, herbals, cannabis, and nutritional supplements).: Yes
[2024-03-18 12:57] LABS: Total Triiodothyronine (T3) 0.82 NG/ML (0.97-1.69)
[2024-03-18 15:51] LABS: Glucose Point of Care 147 mg/dl (65-105)
[2024-03-18 16:10] LABS: Hepatitis B Surface Antigen Negative (Negative)
[2024-03-18 16:16] LABS: HAV RESULT Negative (Negative); Hepatitis B Core IgM Result Negative (Negative)
--- NOTE | 2024-03-18 16:19 | PCRCNOTE ---
pt refused to wear S9 CPAP from hospital , stated she would have her home unit brought in if she wanted to wear one. Tanya MORAN
[2024-03-18 16:27] LABS: Hepatitis C Virus Antibody Negative (Negative)
--- NOTE | 2024-03-18 18:30 | ADMGEN ---
This patient, Prema Pearce, was admitted to 2 Medical Room 241-01. Patient/family oriented to hospital policies and general routines including ID bracelet, bed and alarms, visiting hours, pain management, procedures, bathroom and other care routines, personal items, smoking policy, room service/diet, and visiting hours. Information on how to activate the Rapid Response Team has been discussed. Patient/Family are encouraged to report perceived risks to care and to ask questions if they do not understand what they are told or what they should do. report received from VICTORINO in ED
[2024-03-18 18:56] LABS: Glucose Point of Care 209 mg/dl (65-105)
[2024-03-18] MEDS: METOPROLOL TARTRATE 50 MG TAB PO (18:58)
[2024-03-18] MEDS: INSULIN ASPART (*BKC) 100 UNITS/ML SUB-Q ×2 (18:58→21:59)
[2024-03-18 21:06] LABS: Glucose Point of Care 205 mg/dl (65-105)
[2024-03-18] MEDS: APIXABAN 5 MG TABLET PO (21:58)
[2024-03-18] MEDS: ALPRAZolam (*CRX) 0.25 MG TABLET PO (21:59)
[2024-03-19] VITALS (11 sets, daily range): BP systolic 116–153; BP diastolic 77–90; PULSE 80–116; RESP 16–18; TEMP 36.3–36.6; O2SAT 96–98
--- NOTE | 2024-03-19 06:00 | ECHO_ITS ---
Patient Info Name: Prema Pearce Age: 84 years : 1940 Gender: Female Ht: 62 in Wt: 200 lbs BSA: 2.04 m2 HR: 85 bpm BP: 153 / 90 mmHg Technical Quality: Good Exam Date: 03/19/2024 1:56 PM Exam Location: Echo Lab Exam Room: [address] [place] [address] Patient Status: Inpatient Admit Date: 03/18/2024 Staff Ordering Physician: Mago Bird PA-C [employer] Furnish[employer] Installer: Madonna Navarrete RDCS Attending Provider: Donis Lemus MD Referring Physician: Pelon FLORES; Exam Type: CA echo doppler color flow Study Info Complete two-dimensional, color flow and Doppler transthoracic echocardiogram is performed. Summary 1. Complete two-dimensional, color flow and Doppler transthoracic echocardiogram is performed. 2. Left ventricular chamber dimension is normal. 3. Left ventricular systolic function is normal, estimated at 55-60%. 4. There is mildly increased left ventricular wall thickness. 5. Left ventricular wall motion is normal. 6. Right ventricular chamber dimension is normal. 7. Right ventricular systolic function is normal. 8. Left atrial chamber dimension is enlarged. 9. There is LF-LG potentially moderate Aortic stenosis, Vmax 246, MG 16, D! 0.31, HOLLI by continuity 0.8, HOLLI by planimetry cannot be done as no short axis view taken. 10. There is mild aortic valve regurgitation. 11. There is mild to moderate mitral valve regurgitation. 12. There is trace tricuspid valve regurgitation. Recommendations * Consider low dose DSE as an outpatient or aortic valve calcium score. * Consdier ARIADNE to assess mitral valve. Left Ventricle Left ventricular chamber dimension is normal. Left ventricular systolic function is normal, estimated at 55-60%. There is mildly increased left ventricular wall thickness. Left ventricular wall motion is normal. The left ventricular diastolic function is indeterminate. Right Ventricle Right ventricular chamber dimension is normal. Right ventricular systolic function is normal. Left Atria Left atrial chamber dimension is enlarged. Right Atria Right atrial chamber dimension is enlarged. Aortic Valve The aortic valve is trileaflet. There is moderate aortic valve sclerosis. There is LF-LG potentially moderate Aortic stenosis, Vmax 246, MG 16, D! 0.31, HOLLI by continuity 0.8, HOLLI by planimetry cannot be done as no short axis view taken. There is mild aortic valve regurgitation. Pulmonic Valve The pulmonic valve is normal. There is no pulmonic valve stenosis. There is no pulmonic regurgitation. Mitral Valve The mitral valve has post annular calcification. There is mild to moderate mitral valve regurgitation. Tricuspid Valve The tricuspid valve leaflets are normal. There is no significant tricuspid valve stenosis. There is trace tricuspid valve regurgitation. No pulmonary hypertension, estimated pulmonary arterial systolic pressure is 5 mmHg. Pericardium/Pleural The pericardium appears normal. There is no pericardial effusion. Inferior Vena Cava Normal inferior vena cava with >50% collapse upon inspiration consistent with normal right atrial pressure, 5 mmHg. Aorta The aortic root size at the sinus of Valsalva is normal. The prox ascending aorta size is normal. Left Ventricular Outflow Tract Name Value Normal LVOT 2D LVOT Diameter 1.8 cm LVOT Doppler LVOT Peak Gradient 2 mmHg LVOT Mean Gradient 1 mmHg LVOT VTI 11 cm LVOT VTI/AV VTI Ratio 0.3 LVOT Stroke Volume 28 ml LVOT CO 6.7 l/min LVOT CI 3.3 l/min/m2 Mitral Valve Name Value Normal MV Doppler MV Peak Gradient 12 mmHg MV Mean Gradient 3 mmHg MV Decel [place] 851 cm/s2 MV PHT 44 ms MV Area (PHT) 5.0 cm2 4.0-5.0 MV Area (Cont Eq VTI) 0.5 cm2 MV Regurgitation Doppler MR Peak Gradient 135 mmHg MV Diastolic Function MV E Peak Velocity 128 cm/s MV A Peak Velocity 28 cm/s MV E/A 4.6 MV Decel Time 151 ms MV Annular TDI MV E/e' (Septal) 22.9 <=8.0 MV E/e' (Lateral) 13.7 <=8.0 MV E/e' (Average) 18.3 Tricuspid Valve Name Value Normal TV Regurgitation Doppler TR Peak Velocity 6 cm/s TR Peak Gradient 0 mmHg Estimated PAP/RSVP RA Pressure 5 mmHg <=5 PA Systolic Pressure 5 mmHg <36 RV Systolic Pressure 5 mmHg <36 Aortic Valve Name Value Normal AV Doppler AV Peak Velocity 246 cm/s AV Peak Gradient 24 mmHg AV Mean Gradient 16 mmHg AV VTI 45 cm AV Area (Cont Eq VTI) 0.6 cm2 >=3.0 AV Area (Cont Eq Jeancarlos) 0.7 cm2 AV Regurgitation 2D LVOT Area 2.4 cm2 Ventricles Name Value Normal LV Dimensions 2D/MM LVOT Diameter 1.8 cm Atria Name Value Normal LA Dimensions LA Volume (4C A-L) 161 ml RA Dimensions RA Area (4C) 27.5 cm2 <=18.0 Report Signatures Amended by Patti Montana on 03/20/2024 20:24 Amended by Patti Montana on 03/20/2024 11:55
[2024-03-19 06:06] LABS: Basophils Percent Auto 0.7 % (0.2-1.2); Eosinophils Percent Auto 0.5 % (0-4.4); Hematocrit 31.7 % (37.0-47.0); Hemoglobin 9.5 g/dL (12.0-15.0); Immature Granulocyte Absolute 0.02 K/mm3 (0.00-0.031); Immature Granulocyte Percent A 0.3 % (0-0.5); Lymphocytes Absolute Auto 1.33 K/mm3 (0.9-3.2); Lymphocytes Percent Auto 22.5 % (18.3-44.2); Mean Corpuscular Hemoglobin 25.5 pg (26-34); Mean Platelet Volume 9.6 fl (7.4-10.4); Monocytes Absolute Auto 0.7 K/mm3 (0.1-0.6); Monocytes Percent Auto 11.2 % (2.6-8.5); Neutrophils Absolute Auto 3.8 K/mm3 (1.3-6.7); Neutrophils Percent Auto 64.8 % (45.5-73.1); Platelet Count Result 413 k/mm3 (150-375); Red Blood Count 3.73 M/mm3 (4.2-5.4); Red Cell Distribution Width 18.2 % (11.5-14.5); White Blood Count 5.9 K/mm3 (4.5-10.0)
[2024-03-19 06:24] LABS: Alanine Aminotransferase 154 U/L (6-35); Albumin Level 3.3 g/dL (3.5-5.1); Alkaline Phosphatase 140 U/L (38-126); Anion Gap 5 mmol/L (4-12); Aspartate Amino Transferase 54 U/L (14-36); Bilirubin,Total 0.8 mg/dL (0.2-1.3); Blood Urea Nitrogen 16 mg/dL (7-17); Calcium 9.1 mg/dL (8.4-10.2); Carbon Dioxide 27 mmol/L (22-30); Chloride 102 mmol/L (98-107); Estimated CRCL calculation 63 ml/min; Estimated Glomerular Filt Rate > 60; Glucose 141 mg/dL (65-110); Magnesium 1.6 mg/dL (1.6-2.3); Potassium 3.7 mmol/L (3.4-5.0); Sodium 134 mmol/L (137-145)
--- NOTE | 2024-03-19 08:01 | P.PNIM_ITS ---
Progress Note: A&P Assessment and Plan (1) Atrial fibrillation with rapid ventricular response: Code(s): I48.91 - Unspecified atrial fibrillation Status: Acute Assessment and Plan: She has chronic atrial fibrillation and is on metoprolol for rate control and apixaban for stroke prophylaxis. Heart rate has improved somewhat with IV metoprolol given in the ED. Continue scheduled metoprolol with close monitoring; adjustments can be made if indicated (2) CHF exacerbation: Code(s): I50.9 - Heart failure, unspecified Status: Acute Assessment and Plan: She has mild pulmonary edema on chest x-ray and proBNP is higher than what it typically runs. She will be diuresed with close monitoring of volume status, renal function, and electrolytes. Cardiology has been consulted for further recommendations; she requests that we speak with her weight reduction specialist Dr. Mendes at [place] with any changes. (3) Heart failure with preserved ejection fraction: Code(s): I50.30 - Unspecified diastolic (congestive) heart failure Status: Acute (4) Valvular heart disease: Code(s): I38 - Endocarditis, valve unspecified Status: Acute (5) Elevated LFTs: Code(s): R79.89 - Other specified abnormal findings of blood chemistry Status: Acute Assessment and Plan: Abdominal exam is benign however will obtain a right upper quadrant ultrasound and check hepatitis panel. (6) Pericardial effusion: Code(s): I31.39 - Other pericardial effusion (noninflammatory) Status: Acute (7) Hypomagnesemia: Code(s): E83.42 - Hypomagnesemia Status: Acute Assessment and Plan: repalce MG and monitor (8) Chronic anemia: Code(s): D64.9 - Anemia, unspecified Status: Acute Assessment and Plan: Initiate sliding scale insulin, Accu-Cheks, and hypoglycemic protoco (9) Type 2 diabetes mellitus without complications: Code(s): E11.9 - Type 2 diabetes mellitus without complications Status: Acute (10) Obstructive sleep apnea on CPAP: Code(s): G47.33 - Obstructive sleep apnea (adult) (pediatric) Status: Acute Plan The patient presented to the emergency department for evaluation of rapid heart rate as detailed in HPI. Labs, imaging, EKG, and all reports were personally re viewed. She has chronic atrial fibrillation and is on metoprolol for rate control and apixaban for stroke prophylaxis. Heart rate has improved somewhat with IV metoprolol given in the ED. Continue scheduled metoprolol with close monitoring; adjustments can be made if indicated. She has mild pulmonary edema on chest x-ray and proBNP is higher than what it typically runs. She will be diuresed with close monitoring of volume status, renal function, and electrolytes. Cardiology has been consulted for further recommendations; she requests that we speak with her weight reduction specialist Dr. Mendes at [place] with any changes. LFTs are a bit elevated, possibly due to passive congestion. She had nausea and vomiting this morning though that resolved with ondansetron and it sounds as though that was more due to postnasal drip than a GI issue. Abdominal exam is benign however will obtain a right upper quadrant ultrasound and check hepatitis panel. Magnesium will be replaced and monitored. Anemia stable on re view of previous labs. Initiate sliding scale insulin, Accu-Cheks, and hypoglycemic protocol. CPAP will be provided for the patient to use while hospitalized. Her home medications will be reviewed and resumed as appropriate. Findings and treatment plan were discussed with the patient. Questions were solicited and answered to satisfaction. The patient's medical management will be taken over by the hospitalist team in a.m. Subjective Date/time seen: 03/19/24 08:01 Interval history: Rapid heart rate. Narrative retrieved from H/P: This is a pleasant 84-year-old female with history of stroke, atrial fibrillation on chronic anticoagulation, severe aortic valve stenosis and moderate mitral valve stenosis on echocardiogram anion January 2024, hypertension, dyslipidemia, heart failure with preserved ejection fraction, pulmonary embolism, obstructive sleep apnea on CPAP, type 2 diabetes mellitus, duodenal ulcer, Zenker's diverticulum, and gastroesophageal reflux disease who presented to the emergency department via EMS from [facility] for evaluation of the rapid heart rate. The patient provides the following history. The patient tells me that she ?has not felt well for quite some time? and most recently she had double pneumonia which has mainly resolved. It is not necessarily unusual for her to have nausea related to postnasal drip and this morning she had an episode of emesis which was essentially mucous. Vital signs were checked at her facility, she was tachycardic, was referred to the ED. She has no complaints of palpitations or racing heart but she does endorse orthopnea and increasing lower extremity edema since furosemide was discontinued about 4 weeks ago; she is not certain as to why the furosemide was discontinued. At the time my evaluation she is feeling in her usual state of health and reports being a bit anxious and is asking for alprazolam. She denies fever, chills, sweats, chest pain, pleuritic pain, palpitations, abdominal pain, current nausea, diarrhea, dysuria, and calf pain. In the ED: She was in rapid atrial fibrillation on arrival with rates in the 120s. The remainder of her vital signs were stable. Labs were significant for a WBC count 5.9, 9.8 sodium 131, glucose 166, magnesium 1 4, AST 70, ALT 187, alkaline phosphatase 145, proBNP 9110. Urinalysis was unremarkable. Viral panel was negative. Chest CT showed mild pulmonary edema, small pleural effusions, and a small pericardial effusion with a small area of pericardial calcification. She was given metoprolol tartrate 5 mg IV, furosemide 20 mg IV, and magnesium sulfate 2 g IV. She is being admitted in this setting for further treatment. Review of Systems Review of Systems: 12 systems were reviewed and are negativ e except for as per HPI. Exam Narrative: General: Well-developed elderly female sitting up in bed in no acute distress. Weight: 91 kg. BMI: 36.7. HEENT: PERRL, EOMI. Sclera anicteric. Moist mucous membranes. Neck: Supple. No significant jugular venous distention. Respiratory: Respirations are nonlabored she is speaking full sentences. Lung sounds are a bit diminished at the bases with faint crackles. Cardiovascular: Irregularly irregular rate and rhythm. Systolic murmur best heard at the upper sternal border. Gastrointestinal: Abdomen is soft, obese, nontender, and nondistended with positive bowel sounds. Skin: Warm and dry. Generalized pallor. Extremities: No cyanosis or clubbing. 3+ pedal edema up to the knees bilaterally. No palpable knots or cords. Negative Lowell sign bilaterally. Peripheral pulses palpable. Neurological: Alert. Cranial nerves 2-12 are grossly intact. No gross focal deficits to casual conversation. Psychiatric: Pleasant and cooperative with appropriate mood. Objective Data Vital Signs Vital Signs: Vital Signs - 24 hr 03/18/24 08:39 03/18/24 09:15 03/18/24 10:05 Temperature 97.9 F Pulse Rate 120 H 97 106 H Respiratory Rate 16 20 23 H Blood Pressure 171/101 H 130/115 H Pulse Oximetry 94 97 94 Oxygen Delivery 03/18/24 10:05 03/18/24 10:22 03/18/24 10:23 Temperature Pulse Rate 113 H 115 H 116 H Respiratory Rate 23 H 17 19 Blood Pressure 130/115 H 156/117 H Pulse Oximetry 95 98 97 Oxygen Delivery 03/18/24 10:31 03/18/24 11:01 03/18/24 11:31 Temperature Pulse Rate 124 H 125 H 115 H Respiratory Rate 22 H 16 19 Blood Pressure 175/113 H 147/112 H 153/120 H Pulse Oximetry 98 97 Oxygen Delivery 03/18/24 11:45 03/18/24 12:01 03/18/24 12:25 Temperature Pulse Rate 108 H 110 H Respiratory Rate 18 17 Blood Pressure 152/122 H 140/97 H Pulse Oximetry Oxygen Delivery 03/18/24 12:29 03/18/24 13:01 03/18/24 14:00 Temperature Pulse Rate 122 H 105 H 108 H Respiratory Rate 19 16 Blood Pressure 155/109 H Pulse Oximetry Oxygen Delivery 03/18/24 14:31 03/18/24 14:45 03/18/24 15:00 Temperature Pulse Rate 107 H 108 H 99 Respiratory Rate 17 20 19 Blood Pressure 146/98 H Pulse Oximetry 94 92 Oxygen Delivery 03/18/24 15:01 03/18/24 15:31 03/18/24 16:02 Temperature Pulse Rate 101 H 109 H 126 H Respiratory Rate 15 16 19 Blood Pressure 154/102 H 146/115 H 114/101 H Pulse Oximetry Oxygen Delivery 03/18/24 16:30 03/18/24 17:05 03/18/24 18:30 Temperature Pulse Rate 100 108 H 115 H Respiratory Rate 20 17 Blood Pressure 144/96 H Pulse Oximetry 96 Oxygen Delivery 03/18/24 18:30 03/18/24 18:58 03/18/24 20:00 Temperature Pulse Rate 116 H Respiratory Rate Blood Pressure Pulse Oximetry Oxygen Delivery Room Air Room Air 03/18/24 20:00 03/18/24 20:07 03/19/24 00:00 Temperature 97.8 F Pulse Rate 99 85 94 Respiratory Rate 18 Blood Pressure 142/97 H Pulse Oximetry 96 Oxygen Delivery 03/19/24 04:00 03/19/24 06:00 Temperature 97.5 F L Pulse Rate 94 85 Respiratory Rate 18 Blood Pressure 153/90 H Pulse Oximetry 97 Oxygen Delivery Intake/Output Intake/Output: Intake & Output 03/16/24 03/17/24 03/18/24 03/19/24 23:59 23:59 23:59 23:59 Intake Total 50 Output Total 1430 Balance 50 -1430 Meds/Results Medications: Active Medications Generic Name Dose Route Start Last Admin Trade Name Freq PRN Reason Stop Dose Admin Acetaminophen 650 mg 03/18/24 12:58 Acetaminophen 325 Mg Tablet PO Q6H PRN Mild Pain (1-3) or Fever Apixaban 5 mg 03/18/24 21:00 03/18/24 21:58 Apixaban 5 Mg Tablet PO 5 mg Q12HR MISHA Administration Dextrose 12.5 gm 03/18/24 12:58 Dextrose 50% 25 Gm/50 Ml Syringe IV PUSH PRN PRN Hypoglycemia Protocol Furosemide 20 mg 03/19/24 09:00 Furosemide Inj 40 Mg/4 Ml Vial IV PUSH DAILY MISHA Glucagon 1 mg 03/18/24 12:58 Glucagon For Inj 1 Mg Vial IM PRN PRN Hypoglycemia Protocol Glucose 15 gm 03/18/24 12:58 Glucose Oral Gel 15 Gm Of Glucse In 37.5 Gm Tube PO PRN PRN Hypoglycemia Protocol Dextrose 1,000 mls @ 100 mls/hr 03/18/24 12:58 Dextrose 5% 1,000 Ml IVPB PRN PRN Hypoglycemia Protocol Insulin Aspart 2 - 5 units 03/18/24 17:00 03/18/24 18:58 Insulin Aspart (*Bkc) 100 Units/Ml SUB-Q 2 units TIDWM MISHA Administration Protocol Insulin Aspart 1 - 2 units 03/18/24 21:00 03/18/24 21:59 Insulin Aspart (*Bkc) 100 Units/Ml SUB-Q 1 units HS MISHA Administration Protocol Perflutren Lipid Microsphere 0 ml 03/18/24 12:09 Perflutren Lipid Microspheres 1.5 Ml Vial Diluted To 10 Ml Total Volume IV PUSH 03/21/24 12:10 ONCE PRN adequate visualization Protocol Radiology Results: ITS Impressions Chest X-Ray 03/18/24 09:41 IMPRESSION: 1. Mild opacities in the left lower lung zone which could represent atelectasis or pneumonia. 2. Cardiomegaly and enlargement of the central pulmonary arteries consistent with pulmonary arterial hypertension. Chest CT 03/18/24 10:25 IMPRESSION: 1. Mild pulmonary edema. 2. Small pleural effusions. 3. Small pericardial effusion with small are of calcific pericarditis. Abdomen Ultrasound 03/18/24 13:51 IMPRESSION: 1. Mild right hydroureteronephrosis. Consider CT to assess for obstructing stone or mass. 2. Otherwise unremarkable right upper quadrant ultrasound with common bile duct measuring 8 mm which is for age and postcholecystectomy. Labs Labs: Laboratory Results - last 24 hr 03/18/24 03/18/24 03/18/24 09:50 12:09 15:48 WBC 5.9 RBC 3.75 L Hgb 9.8 L Hct 32.0 L MCV 85.3 MCH 26.1 MCHC 30.6 L RDW 18.0 H Plt Count 405 H MPV 9.6 Immature Gran % (Auto) 0.5 Neut % (Auto) 77.3 H Lymph % (Auto) 12.8 L [place] % (Auto) 8.6 H Eos % (Auto) 0.3 Baso % (Auto) 0.5 Lymph # (Auto) 0.76 L [place] # (Auto) 0.5 Eos # (Auto) 0.0 Baso # (Auto) 0.0 Abs Immat Gran (auto) 0.03 Absolute Neuts (auto) 4.6 Absolute Nucleated RBC 0.020 H Nucleated RBC % 0.3 H PT 21.2 H INR 1.8 APTT 29.5 Sodium 131 L Potassium 4.3 Chloride 102 Carbon Dioxide 25 Anion Gap 4 BUN 16 Creatinine 0.60 L Estim Creat Clear Calc 64 Estimated GFR > 60 Glucose 166 H POC Capillary Glucose 147 H Calcium 9.3 Magnesium 1.4 L Total Bilirubin 0.9 AST 78 H ALT 187 H Alkaline Phosphatase 145 H NT-Pro-B Natriuret Pep 9110 H Total Protein 7.0 Albumin 3.6 TSH (Reflex) 6.410 H Free T4 1.75 Total T3 0.82 L Urine Color Yellow Urine Appearance Clear Urine pH 7.0 Ur Specific [place] 1.011 Urine Protein Negative Urine Glucose (UA) Negative Urine Ketones Negative Ur Blood (Man) Negative Urine Nitrate Negative Urine Bilirubin Negative Urine Urobilinogen 0.2 Leukocyte Esterase Rfl Negative Hepatitis A IgM Ab Negative Hep Bs Antigen Negative Hep B Core IgM Ab Negative Hepatitis C Ab Screen Negative Influenza A (RT-PCR) Negative Influenza B (RT-PCR) Negative RSV (RT-PCR) Negative SARS-CoV-2 RNA (RT-PCR) Negative 03/18/24 03/18/24 03/19/24 18:53 20:17 05:29 WBC 5.9 RBC 3.73 L Hgb 9.5 L Hct 31.7 L MCV 85.0 MCH 25.5 L MCHC 30.0 L RDW 18.2 H Plt Count 413 H MPV 9.6 Immature Gran % (Auto) 0.3 Neut % (Auto) 64.8 Lymph % (Auto) 22.5 [place] % (Auto) 11.2 H Eos % (Auto) 0.5 Baso % (Auto) 0.7 Lymph # (Auto) 1.33 [place] # (Auto) 0.7 H Eos # (Auto) 0.0 Baso # (Auto) 0.0 Abs Immat Gran (auto) 0.02 Absolute Neuts (auto) 3.8 Absolute Nucleated RBC 0.000 Nucleated RBC % 0.0 PT INR APTT Sodium 134 L Potassium 3.7 Chloride 102 Carbon Dioxide 27 Anion Gap 5 BUN 16 Creatinine 0.60 L Estim Creat Clear Calc 63 Estimated GFR > 60 Glucose 141 H POC Capillary Glucose 209 H 205 H Calcium 9.1 Magnesium 1.6 Total Bilirubin 0.8 AST 54 H ALT 154 H Alkaline Phosphatase 140 H NT-Pro-B Natriuret Pep Total Protein 6.0 L Albumin 3.3 L TSH (Reflex) Free T4 Total T3 Urine Color Urine Appearance Urine pH Ur Specific [place] Urine Protein Urine Glucose (UA) Urine Ketones Ur Blood (Man) Urine Nitrate Urine Bilirubin Urine Urobilinogen Leukocyte Esterase Rfl Hepatitis A IgM Ab Hep Bs Antigen Hep B Core IgM Ab Hepatitis C Ab Screen Influenza A (RT-PCR) Influenza B (RT-PCR) RSV (RT-PCR) SARS-CoV-2 RNA (RT-PCR) Quality VTE Prophylaxis VTE prophylaxis: pharmacologic ordered (on apixaban)
[2024-03-19 08:40] LABS: Glucose Point of Care 142 mg/dl (65-105)
[2024-03-19] MEDS: FUROSEMIDE INJ 40 MG/4 ML VIAL 20 MG IV PUSH (08:56)
[2024-03-19] MEDS: APIXABAN 5 MG TABLET PO ×2 (08:56→22:15)
[2024-03-19] MEDS: ACETAMINOPHEN 325 MG TABLET 650 MG PO (08:56)
[2024-03-19] MEDS: SPIRONOLACTONE 50 MG TABLET PO (10:36)
[2024-03-19] MEDS: METOPROLOL TARTRATE 50 MG TAB PO ×2 (10:36→22:15)
[2024-03-19 12:39] LABS: Glucose Point of Care 164 mg/dl (65-105)
--- NOTE | 2024-03-19 12:46 | P.PNIM_ITS ---
Progress Note: A&P Assessment and Plan (1) Atrial fibrillation with rapid ventricular response: Code(s): I48.91 - Unspecified atrial fibrillation Status: Acute Assessment and Plan: She has chronic atrial fibrillation and is on metoprolol for rate control and apixaban for stroke prophylaxis. Heart rate has improved somewhat with IV metoprolol given in the ED. Continue scheduled metoprolol with telemetry monitoring. 03/19 Afib with vent rate 113 (2) CHF exacerbation: Code(s): I50.9 - Heart failure, unspecified Status: Acute Assessment and Plan: She has mild pulmonary edema on chest x-ray and proBNP is higher than what it typically runs. Continue IV furosemide for diuresis. Continue spironolactone and metoprolol. (3) Heart failure with preserved ejection fraction: Code(s): I50.30 - Unspecified diastolic (congestive) heart failure Status: Acute Assessment and Plan: As above. (4) Elevated LFTs: Code(s): R79.89 - Other specified abnormal findings of blood chemistry Status: Acute Assessment and Plan: No GI c/o. Suspect hepatic congestion. (5) Pericardial effusion: Code(s): I31.39 - Other pericardial effusion (noninflammatory) Status: Acute Assessment and Plan: 03/19 echo pending (6) Hypomagnesemia: Code(s): E83.42 - Hypomagnesemia Status: Acute Assessment and Plan: repalce MG and monitor (7) Chronic anemia: Code(s): D64.9 - Anemia, unspecified Status: Acute Assessment and Plan: Initiate sliding scale insulin, Accu-Cheks, and hypoglycemic protoco (8) Type 2 diabetes mellitus without complications: Code(s): E11.9 - Type 2 diabetes mellitus without complications Status: Acute (9) Obstructive sleep apnea on CPAP: Code(s): G47.33 - Obstructive sleep apnea (adult) (pediatric) Status: Acute Subjective Date/time seen: 03/19/24 12:46 Interval history: Breathing much better. Swelling improving. Tolerated diet. Denied chest pain or shortness of breath at rest. Denied GI or issues. Denied focal weakness. Review of Systems Review of Systems: All systems reviewed & are unremarkable except as noted in HPI and below Exam Narrative: General: Well-developed elderly female sitting up in bed in no acute distress. HEENT: PERRL. Sclera anicteric. Moist mucous membranes. Neck: Supple. No significant jugular venous distention. Respiratory: Respirations are nonlabored she is speaking full sentences. Lung sounds are a bit diminished at the bases with faint crackles. Cardiovascular: Irregularly irregular rate and rhythm. Tachycardic. Systolic murmur best heard at the upper sternal border. Gastrointestinal: Abdomen is soft, obese, nontender, and nondistended with positive bowel sounds. Skin: Warm and dry. Generalized pallor. Extremities: No cyanosis or clubbing. 1+ pedal edema up to the knees bilaterally. No palpable knots or cords. Neurological: Alert. Cranial nerves 2-12 are grossly intact. No gross focal deficits to casual conversation. Musculoskeletal: No gross deformity to visual inspection. Psychiatric: Pleasant and cooperative with appropriate mood. Objective Data Vital Signs Vital Signs: Vital Signs - 24 hr 03/18/24 13:01 03/18/24 14:00 03/18/24 14:31 Temperature Pulse Rate 105 H 108 H 107 H Respiratory Rate 19 16 17 Blood Pressure 155/109 H 146/98 H Pulse Oximetry 94 Oxygen Delivery Fraction of Inspired Oxygen 03/18/24 14:45 03/18/24 15:00 03/18/24 15:01 Temperature Pulse Rate 108 H 99 101 H Respiratory Rate 20 19 15 Blood Pressure 154/102 H Pulse Oximetry 92 Oxygen Delivery Fraction of Inspired Oxygen 03/18/24 15:31 03/18/24 16:02 03/18/24 16:30 Temperature Pulse Rate 109 H 126 H 100 Respiratory Rate 16 19 20 Blood Pressure 146/115 H 114/101 H Pulse Oximetry Oxygen Delivery Fraction of Inspired Oxygen 03/18/24 17:05 03/18/24 18:30 03/18/24 18:30 Temperature Pulse Rate 108 H 115 H Respiratory Rate 17 Blood Pressure 144/96 H Pulse Oximetry 96 Oxygen Delivery Room Air Fraction of Inspired Oxygen 03/18/24 18:58 03/18/24 20:00 03/18/24 20:00 Temperature Pulse Rate 116 H 99 Respiratory Rate Blood Pressure Pulse Oximetry Oxygen Delivery Room Air Fraction of Inspired Oxygen 03/18/24 20:07 03/19/24 00:00 03/19/24 04:00 Temperature 97.8 F Pulse Rate 85 94 94 Respiratory Rate 18 Blood Pressure 142/97 H Pulse Oximetry 96 Oxygen Delivery Fraction of Inspired Oxygen 03/19/24 06:00 03/19/24 08:00 03/19/24 08:50 Temperature 97.5 F L Pulse Rate 85 104 H Respiratory Rate 18 Blood Pressure 153/90 H Pulse Oximetry 97 Oxygen Delivery Room Air Fraction of Inspired Oxygen 03/19/24 09:44 03/19/24 10:36 Temperature Pulse Rate 116 H Respiratory Rate Blood Pressure Pulse Oximetry 96 Oxygen Delivery Room Air Fraction of Inspired Oxygen 21 Intake/Output Intake/Output: Intake & Output 03/16/24 03/17/24 03/18/24 03/19/24 23:59 23:59 23:59 23:59 Intake Total 50 Output Total 1430 Balance 50 -1430 Meds/Results Medications: Active Medications Generic Name Dose Route Start Last Admin Trade Name Freq PRN Reason Stop Dose Admin Acetaminophen 650 mg 03/18/24 12:58 03/19/24 08:56 Acetaminophen 325 Mg Tablet PO 650 mg Q6H PRN Administration Mild Pain (1-3) or Fever Acetaminophen 1,000 mg 03/19/24 12:42 Acetaminophen 500 Mg Tablet PO Q6H PRN Pain (Scale Score 1-3) Alprazolam 0.5 mg 03/19/24 12:44 Alprazolam (*Crx) 0.5 Mg Tablet PO BID PRN Anxiety Apixaban 5 mg 03/18/24 21:00 03/19/24 08:56 Apixaban 5 Mg Tablet PO 5 mg Q12HR MISHA Administration Apixaban 5 mg 03/19/24 21:00 Apixaban 5 Mg Tablet PO Q12HR [facility] Calcium Carbonate 400 mg 03/19/24 12:42 Calcium Carbonate (Tums) 500 Mg (200 Mg Elemental) PO Q6H PRN Acid Reflux Dextrose 12.5 gm 03/18/24 12:58 Dextrose 50% 25 Gm/50 Ml Syringe IV PUSH PRN PRN Hypoglycemia Protocol Famotidine 20 mg 03/20/24 09:00 Famotidine 20 Mg Tablet PO DAILY [facility] Fluoxetine HCl 40 mg 03/20/24 09:00 Fluoxetine Hcl 20 Mg Capsule PO DAILY [facility] Fluticasone Propionate 1 spray 03/20/24 09:00 Fluticasone Propionate 0.05% Na Spr 16 Gm Btl (*Bkc) NASAL DAILY [facility] Furosemide 20 mg 03/19/24 09:00 03/19/24 08:56 Furosemide Inj 40 Mg/4 Ml Vial IV PUSH 20 mg DAILY MISHA Administration Glipizide 10 mg 03/19/24 17:00 Glipizide 5 Mg Tablet PO BID MISHA Glucagon 1 mg 03/18/24 12:58 Glucagon For Inj 1 Mg Vial IM PRN PRN Hypoglycemia Protocol Glucose 15 gm 03/18/24 12:58 Glucose Oral Gel 15 Gm Of Glucse In 37.5 Gm Tube PO PRN PRN Hypoglycemia Protocol Guaifenesin 600 mg 03/19/24 12:42 Guaifenesin 12 Hr 600 Mg Tabcr PO BID PRN congestion Dextrose 1,000 mls @ 100 mls/hr 03/18/24 12:58 Dextrose 5% 1,000 Ml IVPB PRN PRN Hypoglycemia Protocol Insulin Aspart 2 - 5 units 03/18/24 17:00 03/19/24 08:50 Insulin Aspart (*Bkc) 100 Units/Ml SUB-Q Not Given TIDWM MISHA Protocol Insulin Aspart 1 - 2 units 03/18/24 21:00 03/18/24 21:59 Insulin Aspart (*Bkc) 100 Units/Ml SUB-Q 1 units HS MISHA Administration Protocol Levothyroxine Sodium 50 mcg 03/20/24 09:00 Levothyroxine Sodium 50 Mcg Tablet PO DAILY MIHSA Loratadine 10 mg 03/20/24 09:00 Loratadine 10 Mg Tablet PO DAILY MISHA Metformin HCl 500 mg 03/19/24 12:45 Metformin Hcl 500 Mg Tablet PO BIDWMEAL MISHA Metoprolol Tartrate 50 mg 03/19/24 10:25 03/19/24 10:36 Metoprolol Tartrate 50 Mg Tab PO 50 mg Q12HR MISHA Administration Metoprolol Tartrate 75 mg 03/19/24 21:00 Metoprolol Tartrate 25 Mg Tablet PO Q12HR MISHA Ondansetron HCl 4 mg 03/19/24 12:42 Ondansetron Hcl Odt 4 Mg Tablet PO TID PRN Nausea And Vomiting Ondansetron HCl 4 mg 03/19/24 12:42 Ondansetron Hcl Odt 4 Mg Tablet PO Q8H PRN nausea and vomiting Pantoprazole Sodium 40 mg 03/19/24 17:00 Pantoprazole 40 Mg Tablet PO BID MISHA Perflutren Lipid Microsphere 0 ml 03/18/24 12:09 Perflutren Lipid Microspheres 1.5 Ml Vial Diluted To 10 Ml Total Volume IV PUSH 03/21/24 12:10 ONCE PRN adequate visualization Protocol Polyethylene Glycol 17 gm 03/20/24 09:00 Polyethylene Glycol 3350 17 Gm Powd.Pack PO QAM [facility] Rosuvastatin Calcium 20 mg 03/19/24 21:00 Rosuvastatin 20 Mg Tablet PO HS MISHA Spironolactone 50 mg 03/19/24 10:25 03/19/24 10:36 Spironolactone 50 Mg Tablet PO 50 mg QAM MISHA Administration Spironolactone 50 mg 03/20/24 09:00 Spironolactone 25 Mg Tablet PO DAILY MISHA Sucralfate 1 gm 03/19/24 16:30 Sucralfate 1 Gm Tablet PO ACHS [facility] Vitamin D 2,000 units 03/20/24 09:00 Cholecalciferol 1,000 Units Tablet PO DAILY [facility] Radiology Results: ITS Impressions Chest X-Ray 03/18/24 09:41 IMPRESSION: 1. Mild opacities in the left lower lung zone which could represent atelectasis or pneumonia. 2. Cardiomegaly and enlargement of the central pulmonary arteries consistent with pulmonary arterial hypertension. Chest CT 03/18/24 10:25 IMPRESSION: 1. Mild pulmonary edema. 2. Small pleural effusions. 3. Small pericardial effusion with small are of calcific pericarditis. Abdomen Ultrasound 03/18/24 13:51 IMPRESSION: 1. Mild right hydroureteronephrosis. Consider CT to assess for obstructing stone or mass. 2. Otherwise unremarkable right upper quadrant ultrasound with common bile duct measuring 8 mm which is for age and postcholecystectomy. Labs Labs: Laboratory Results - last 24 hr 03/18/24 03/18/24 03/18/24 09:50 15:48 18:53 WBC RBC Hgb Hct MCV MCH MCHC RDW Plt Count MPV Immature Gran % (Auto) Neut % (Auto) Lymph % (Auto) Barnes % (Auto) Eos % (Auto) Baso % (Auto) Lymph # (Auto) [place] # (Auto) Eos # (Auto) Baso # (Auto) Abs Immat Gran (auto) Absolute Neuts (auto) Absolute Nucleated RBC Nucleated RBC % Sodium Potassium Chloride Carbon Dioxide Anion Gap BUN Creatinine Estim Creat Clear Calc Estimated GFR Glucose POC Capillary Glucose 147 H 209 H Calcium Magnesium Total Bilirubin AST ALT Alkaline Phosphatase Total Protein Albumin Total T3 0.82 L Hepatitis A IgM Ab Negative Hep Bs Antigen Negative Hep B Core IgM Ab Negative Hepatitis C Ab Screen Negative 03/18/24 03/19/24 03/19/24 20:17 05:29 08:09 WBC 5.9 RBC 3.73 L Hgb 9.5 L Hct 31.7 L MCV 85.0 MCH 25.5 L MCHC 30.0 L RDW 18.2 H Plt Count 413 H MPV 9.6 Immature Gran % (Auto) 0.3 Neut % (Auto) 64.8 Lymph % (Auto) 22.5 Barnes % (Auto) 11.2 H Eos % (Auto) 0.5 Baso % (Auto) 0.7 Lymph # (Auto) 1.33 [place] # (Auto) 0.7 H Eos # (Auto) 0.0 Baso # (Auto) 0.0 Abs Immat Gran (auto) 0.02 Absolute Neuts (auto) 3.8 Absolute Nucleated RBC 0.000 Nucleated RBC % 0.0 Sodium 134 L Potassium 3.7 Chloride 102 Carbon Dioxide 27 Anion Gap 5 BUN 16 Creatinine 0.60 L Estim Creat Clear Calc 63 Estimated GFR > 60 Glucose 141 H POC Capillary Glucose 205 H 142 H Calcium 9.1 Magnesium 1.6 Total Bilirubin 0.8 AST 54 H ALT 154 H Alkaline Phosphatase 140 H Total Protein 6.0 L Albumin 3.3 L Total T3 Hepatitis A IgM Ab Hep Bs Antigen Hep B Core IgM Ab Hepatitis C Ab Screen 03/19/24 12:06 WBC RBC Hgb Hct MCV MCH MCHC RDW Plt Count MPV Immature Gran % (Auto) Neut % (Auto) Lymph % (Auto) Barnes % (Auto) Eos % (Auto) Baso % (Auto) Lymph # (Auto) [place] # (Auto) Eos # (Auto) Baso # (Auto) Abs Immat Gran (auto) Absolute Neuts (auto) Absolute Nucleated RBC Nucleated RBC % Sodium Potassium Chloride Carbon Dioxide Anion Gap BUN Creatinine Estim Creat Clear Calc Estimated GFR Glucose POC Capillary Glucose 164 H Calcium Magnesium Total Bilirubin AST ALT Alkaline Phosphatase Total Protein Albumin Total T3 Hepatitis A IgM Ab Hep Bs Antigen Hep B Core IgM Ab Hepatitis C Ab Screen Hospitalist MIPS Advance Care Plan I have confirmed that the patient's Advanced Care Plan is present, code status is documented, or surrogate decision maker is listed in patient medical record.: Yes
[2024-03-19] MEDS: ALPRAZolam (*CRX) 0.5 MG TABLET PO ×2 (13:23→22:26)
[2024-03-19] MEDS: ACETAMINOPHEN 500 MG TABLET 1000 MG PO (15:02)
[2024-03-19 17:20] LABS: Glucose Point of Care 169 mg/dl (65-105)
--- NOTE | 2024-03-19 17:40 | P.CONCA_ITS ---
Assessment and Plan Assessment and plan (1) Valvular heart disease: Code(s): I38 - Endocarditis, valve unspecified Status: Acute (2) Atrial fibrillation with RVR: Code(s): I48.91 - Unspecified atrial fibrillation Status: Acute Plan 1. Atrial fibrillation 2. Low-flow low gradient potentially moderate aortic stenosis Vmax 246, MG 16, DI 0.31, HOLLI by continuity 0.8, HOLLI by planimetry cannot be done as no short axis view -continue low-dose diuretic, that we switch to oral from tomorrow -consider low-dose dobutamine stress echo as an outpatient or aortic valve calcium to assist aortic valve. -continue anticoagulation -rates much better controlled with blood pressure after increasing the metoprolol 75 b.i.d. History of Present Illness History of Present Illness Consult date/time: 03/19/24 17:40 Reason For Visit: Pericardial Effusion Narrative: This is a pleasant 84-year-old female with history of stroke, atrial fibrillation on chronic anticoagulation, aortic valve stenosis on echocardiogram on January 2024, hypertension, dyslipidemia, heart failure with preserved ejection fraction, pulmonary embolism, obstructive sleep apnea on CPAP, type 2 diabetes mellitus, duodenal ulcer, Zenker's diverticulum, and gastroesophageal reflux disease who was admitted with AFib RVR, lower extremity swelling and some dyspnea. Her diuretics were started a different hospital At the time of my evaluation she feels much better after dialysis we initiated in the ED. Rates better controlled TTE done shows preserved LV systolic function; LF-LG potentially moderate Aortic stenosis, Vmax 246, MG 16, D! 0.31, HOLLI by continuity 0.8, HOLLI by planimetry cannot be done as no short axis view taken. [id number] MR Review of Systems 2 Review of Systems: 12 systems were reviewed and are negativ e except for as per HPI. 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) Obstructive sleep apnea on CPAP Heart failure with preserved ejection fraction Chronic anticoagulation Pulmonary embolus Anxiety Zenkers diverticulum Chronic atrial fibrillation Gastro-esophageal reflux disease without esophagitis Generalized anxiety disorder Mixed hyperlipidemia Type 2 diabetes mellitus without complications Surgical History Surgical History History of open reduction and internal fixation (ORIF) procedure repair left femur fracture History of hysterectomy History of hip surgery History of cholecystectomy History of tonsillectomy Family History Family History Father Family history of cardiovascular disease Family history of coronary artery disease Depression Mother Family history of cardiovascular disease Family history of coronary artery disease Grandparent Cerebrovascular accident Social History Social History (Updated 03/18/24 @ 19:48 by Mary Alice Freed PA-C) Social History: Surrogate medical decision maker: Homer Culp, son. Code status: Do not resuscitate. Smoking status: Never smoker Second hand tobacco smoke exposure: Yes Alcohol intake: never Substance use: never Substance use type: does not use Do You Feel Safe in your Home?: No Lack of Transportation: No Lack of Food: Never True Current Housing: I Have Housing Concerned About Future Housing: No Difficulty Paying Gas/Electric Bills: No Difficulty Paying for Meds: No Currently Unemployed: No Education: High School Diploma/GED Difficulty w/ Childcare or Family Care: No Additional living arrangements comments: . Lives in assisted living at [facility]. Spiritual care concerns: No Meds Home Medications and Allergies Home Medications ?Medication ?Instructions ?Recorded ?Confirmed ?Type apixaban 5 mg tablet (Eliquis) 5 mg PO Q12H 06/28/19 03/19/24 History rosuvastatin 20 mg tablet 20 mg PO HS 12/14/19 03/19/24 History levothyroxine 25 mcg tablet 50 mcg (2 x 25 mcg) PO DAILY #180 04/27/20 03/19/24 Rx (Synthroid) tabs cholecalciferol (vitamin D3) 25 50 mcg PO DAILY 05/12/22 03/19/24 History mcg (1,000 unit) capsule fluoxetine 20 mg capsule 40 mg PO DAILY 05/12/22 03/19/24 History glipizide 10 mg tablet 10 mg PO BID 05/12/22 03/19/24 History spironolactone 25 mg tablet 50 mg PO DAILY 05/12/22 03/19/24 History acetaminophen 500 mg tablet 1,000 mg PO Q6H PRN Pain (Scale 12/30/23 03/19/24 History Score 1-3) calcium carbonate (Tums) 400 mg PO Q6H PRN Acid Reflux 12/30/23 03/19/24 History metformin 500 mg tablet 500 mg PO BIDWMEAL 12/30/23 03/19/24 History ondansetron 4 mg disintegrating 4 mg PO TID PRN Nausea And Vomiting 02/11/24 03/19/24 History tablet pantoprazole 40 mg tablet,delayed 40 mg PO BID 02/11/24 03/19/24 History release (Protonix) methocarbamol 750 mg tablet 750 mg PO TID 14 days #42 tabs 02/17/24 03/19/24 Rx oxycodone 5 mg tablet 5 mg PO Q6H PRN pain #14 tabs 02/17/24 03/19/24 Rx polyethylene glycol 3350 17 gram 17 g PO QAM #30 ea 02/17/24 03/19/24 Rx oral powder packet (Miralax) famotidine 20 mg tablet 20 mg PO DAILY #30 tabs 02/26/24 03/19/24 Rx fluticasone propionate 50 1 spray intranasal DAILY #16 grams 02/26/24 03/19/24 Rx mcg/actuation nasal spray,suspension (Allergy Relief (fluticasone)) guaifenesin 600 mg tablet, 600 mg PO BID PRN congestion #30 02/26/24 03/19/24 Rx extended release 12 hr (Mucinex) tabs ondansetron 4 mg disintegrating 4 mg PO Q8H PRN nausea and 02/26/24 03/19/24 Rx tablet vomiting #10 tabs alprazolam 0.5 mg tablet 0.5 mg PO BID 03/19/24 03/19/24 History loratadine 10 mg tablet (Claritin) 10 mg PO DAILY 03/19/24 03/19/24 History metoprolol tartrate 50 mg tablet 75 mg PO Q12HR 03/19/24 03/19/24 History sucralfate 1 gram tablet 1 g PO ACHS 03/19/24 03/19/24 History Allergies Allergy/AdvReac Type Severity Reaction Status Date / Time lisinopril Allergy Severe cough Verified 03/18/24 10:07 amlodipine Allergy Difficulty Verified 03/18/24 10:07 Breathing MILI Inhibitors AdvReac Severe cough Verified 03/18/24 10:07 atorvastatin AdvReac Mild Muscle Pain Verified 03/18/24 10:07 citalopram AdvReac Mild Unknown Verified 03/18/24 10:07 hydrochlorothiazide AdvReac Dizziness Verified 03/18/24 10:07 Vital Signs Vital Signs - 24 hr 03/18/24 18:30 03/18/24 18:30 03/18/24 18:58 Temperature Pulse Rate 115 H 116 H Respiratory Rate Blood Pressure Pulse Oximetry Oxygen Delivery Room Air Fraction of Inspired Oxygen 03/18/24 20:00 03/18/24 20:00 03/18/24 20:07 Temperature 36.6 C Pulse Rate 99 85 Respiratory Rate 18 Blood Pressure 142/97 H Pulse Oximetry 96 Oxygen Delivery Room Air Fraction of Inspired Oxygen 03/19/24 00:00 03/19/24 04:00 03/19/24 06:00 Temperature 36.4 C L Pulse Rate 94 94 85 Respiratory Rate 18 Blood Pressure 153/90 H Pulse Oximetry 97 Oxygen Delivery Fraction of Inspired Oxygen 03/19/24 08:00 03/19/24 08:50 03/19/24 09:44 Temperature Pulse Rate 104 H Respiratory Rate Blood Pressure Pulse Oximetry 96 Oxygen Delivery Room Air Room Air Fraction of Inspired Oxygen 21 03/19/24 10:36 03/19/24 12:00 03/19/24 14:00 Temperature 36.3 C L Pulse Rate 116 H 92 80 Respiratory Rate 16 Blood Pressure 116/77 Pulse Oximetry 96 Oxygen Delivery Fraction of Inspired Oxygen Exam 2 Narrative: General: Well-developed elderly female sitting up in bed in no acute distress. HEENT: PERRL. Sclera anicteric. Moist mucous membranes. Neck: Supple. No significant jugular venous distention. Respiratory: Respirations are nonlabored she is speaking full sentences. Lung sounds are a bit diminished at the bases with faint crackles. Cardiovascular: Irregularly irregular rate and rhythm. Tachycardic. Systolic murmur best heard at the upper sternal border. Gastrointestinal: Abdomen is soft, obese, nontender, and nondistended with positive bowel sounds. Skin: Warm and dry. Generalized pallor. Extremities: No cyanosis or clubbing. 1+ pedal edema up to the knees bilaterally. No palpable knots or cords. Neurological: Alert. Cranial nerves 2-12 are grossly intact. No gross focal deficits to casual conversation. Musculoskeletal: No gross deformity to visual inspection. Psychiatric: Pleasant and cooperative with appropriate mood. Results Labs and Meds 03/20/24 05:29 03/20/24 05:29 Lab results: Cardiac Enzymes 03/19/24 Range/Units 05:29 AST 54 H (14-36) U/L CBC 03/19/24 Range/Units 05:29 WBC 5.9 (4.5-10.0) K/mm3 RBC 3.73 L (4.2-5.4) M/mm3 Hgb 9.5 L (12.0-15.0) g/dL Hct 31.7 L (37.0-47.0) % Plt Count 413 H (150-375) k/mm3 Lymph # (Auto) 1.33 (0.9-3.2) K/mm3 [place] # (Auto) 0.7 H (0.1-0.6) K/mm3 Eos # (Auto) 0.0 (0-0.3) K/mm3 Baso # (Auto) 0.0 (0.0-0.1) K/mm3 Comprehensive Metabolic Panel 03/19/24 Range/Units 05:29 Sodium 134 L (137-145) mmol/L Potassium 3.7 (3.4-5.0) mmol/L Chloride 102 (98-107) mmol/L Carbon Dioxide 27 (22-30) mmol/L BUN 16 (7-17) mg/dL Creatinine 0.60 L (0.7-1.0) mg/dL Glucose 141 H (65-110) mg/dL Calcium 9.1 (8.4-10.2) mg/dL AST 54 H (14-36) U/L ALT 154 H (6-35) U/L Alkaline Phosphatase 140 H (38-126) U/L Total Protein 6.0 L (6.3-8.2) g/dL Albumin 3.3 L (3.5-5.1) g/dL Intake and Output 03/19/24 03/19/24 03/19/24 07:59 15:59 23:59 Intake Total 480 Output Total 1430 600 Balance -1430 480 -600 Intake: Oral 480 Output: Urine 1430 Catheter Urine 600 External/Condom 600 Patient Weight 03/19/24 23:59 Weight 91.3 kg
[2024-03-19] MEDS: metFORMIN HCL 500 MG TABLET PO (17:59)
[2024-03-19] MEDS: SUCRALFATE 1 GM TABLET PO ×2 (17:59→22:15)
[2024-03-19] MEDS: glipiZIDE 5 MG TABLET 10 MG PO (17:59)
[2024-03-19] MEDS: PANTOPRAZOLE 40 MG TABLET PO (17:59)
[2024-03-19 21:08] LABS: Glucose Point of Care 167 mg/dl (65-105)
[2024-03-19] MEDS: ROSUVASTATIN 20 MG TABLET PO (22:15)
[2024-03-20] VITALS (12 sets, daily range): BP systolic 125–154; BP diastolic 82–93; PULSE 78–108; RESP 16–18; TEMP 36.3–36.9; O2SAT 97–100
[2024-03-20 06:33] LABS: Basophils Percent Auto 0.6 % (0.2-1.2); Eosinophils Absolute Auto 0.1 K/mm3 (0-0.3); Eosinophils Percent Auto 2.3 % (0-4.4); Hematocrit 32.4 % (37.0-47.0); Hemoglobin 9.8 g/dL (12.0-15.0); Immature Granulocyte Absolute 0.02 K/mm3 (0.00-0.031); Immature Granulocyte Percent A 0.4 % (0-0.5); Lymphocytes Absolute Auto 1.18 K/mm3 (0.9-3.2); Lymphocytes Percent Auto 22.3 % (18.3-44.2); Mean Corpuscular HGB Conc 30.2 g/dl (32-36); Mean Corpuscular Volume 85.9 fl (80-100); Mean Platelet Volume 9.8 fl (7.4-10.4); Monocytes Absolute Auto 0.6 K/mm3 (0.1-0.6); Monocytes Percent Auto 10.4 % (2.6-8.5); Neutrophils Absolute Auto 3.4 K/mm3 (1.3-6.7); Nucleated Red Blood Cells Perc 0.4 % (0.0-0.2); Platelet Count Result 405 k/mm3 (150-375); Red Blood Count 3.77 M/mm3 (4.2-5.4); Red Cell Distribution Width 18.2 % (11.5-14.5); White Blood Count 5.3 K/mm3 (4.5-10.0)
[2024-03-20 06:43] LABS: Alanine Aminotransferase 124 U/L (6-35); Albumin Level 3.3 g/dL (3.5-5.1); Alkaline Phosphatase 131 U/L (38-126); Anion Gap 5 mmol/L (4-12); Aspartate Amino Transferase 39 U/L (14-36); Bilirubin,Total 0.6 mg/dL (0.2-1.3); Blood Urea Nitrogen 20 mg/dL (7-17); Calcium 8.9 mg/dL (8.4-10.2); Carbon Dioxide 26 mmol/L (22-30); Chloride 102 mmol/L (98-107); Estimated CRCL calculation 63 ml/min; Estimated Glomerular Filt Rate > 60; Glucose 134 mg/dL (65-110); Magnesium 1.4 mg/dL (1.6-2.3); Potassium 3.7 mmol/L (3.4-5.0); Sodium 133 mmol/L (137-145)
[2024-03-20] MEDS: LEVOTHYROXINE SODIUM 50 MCG TABLET PO (06:43)
[2024-03-20] MEDS: SUCRALFATE 1 GM TABLET PO ×4 (06:43→20:15)
[2024-03-20 08:04] LABS: Glucose Point of Care 140 mg/dl (65-105)
--- NOTE | 2024-03-20 08:59 | PM.IMPN ---
Progress Note: A&P Assessment and Plan (1) Atrial fibrillation with rapid ventricular response: Code(s): I48.91 - Unspecified atrial fibrillation Status: Acute Assessment and Plan: She has chronic atrial fibrillation and is on metoprolol for rate control and apixaban for stroke prophylaxis. Heart rate has improved somewhat with IV metoprolol given in the ED. Continue scheduled metoprolol with telemetry monitoring. 03/19 Afib with vent rate 113 03/20 102-103 (2) CHF exacerbation: Code(s): I50.9 - Heart failure, unspecified Status: Acute Assessment and Plan: She has mild pulmonary edema on chest x-ray and proBNP is higher than what it typically runs. Continue IV furosemide for diuresis. Continue spironolactone and metoprolol. (3) Heart failure with preserved ejection fraction: Code(s): I50.30 - Unspecified diastolic (congestive) heart failure Status: Acute Assessment and Plan: As above. (4) Elevated LFTs: Code(s): R79.89 - Other specified abnormal findings of blood chemistry Status: Acute Assessment and Plan: No GI c/o. Suspect hepatic congestion. (5) Pericardial effusion: Code(s): I31.39 - Other pericardial effusion (noninflammatory) Status: Acute Assessment and Plan: 03/19 echo pending (6) Hypomagnesemia: Code(s): E83.42 - Hypomagnesemia Status: Acute Assessment and Plan: repalce MG and monitor (7) Chronic anemia: Code(s): D64.9 - Anemia, unspecified Status: Acute Assessment and Plan: hg 9.8-stable (8) Type 2 diabetes mellitus without complications: Code(s): E11.9 - Type 2 diabetes mellitus without complications Status: Acute Assessment and Plan: hypoglycemia protocol ss AccuCheck ac/hs (9) Obstructive sleep apnea on CPAP: Code(s): G47.33 - Obstructive sleep apnea (adult) (pediatric) Status: Acute Assessment and Plan: continue home cpap Time Spent With Patient Time with patient: 25 - 35 minutes Subjective Date/time seen: 03/20/24 08:59 Interval history: pt is seen and examined. feeling better. Swelling improving. Tolerated diet. Denied chest pain or shortness of breath at rest. Denied GI or issues. Denied any weakness. Still feeling WEAK THOUGHT- WORKING WITH pt/ot. bm THIS AM Review of Systems Review of Systems: 12 systems were reviewed and are negative except for as per HPI. All systems reviewed & are unremarkable except as noted in HPI and below Exam Narrative: General: Well-developed elderly female sitting up in bed in no acute distress. HEENT: PERRL. Sclera anicteric. Moist mucous membranes. Neck: Supple. No significant jugular venous distention. Respiratory: Respirations are nonlabored she is speaking full sentences. Lung sounds are a bit diminished at the bases with faint crackles. Cardiovascular: Irregularly irregular rate and rhythm. Tachycardic. Systolic murmur best heard at the upper sternal border. Gastrointestinal: Abdomen is soft, obese, nontender, and nondistended with positive bowel sounds. Skin: Warm and dry. Generalized pallor. Extremities: No cyanosis or clubbing. 1+ pedal edema up to the knees bilaterally. No palpable knots or cords. Neurological: Alert. Cranial nerves 2-12 are grossly intact. No gross focal deficits to casual conversation. Musculoskeletal: No gross deformity to visual inspection. Psychiatric: Pleasant and cooperative with appropriate mood. Objective Data Vital Signs Vital Signs: Vital Signs - 24 hr 03/19/24 09:44 03/19/24 10:36 03/19/24 12:00 Temperature Pulse Rate 116 H 92 Respiratory Rate Blood Pressure Pulse Oximetry 96 Oxygen Delivery Room Air Fraction of Inspired Oxygen 21 03/19/24 14:00 03/19/24 16:00 03/19/24 21:35 Temperature 97.3 F L 98 F Pulse Rate 80 116 H 97 Respiratory Rate 16 18 Blood Pressure 116/77 133/87 Pulse Oximetry 96 98 Oxygen Delivery Fraction of Inspired Oxygen 03/19/24 22:15 03/19/24 22:15 03/19/24 22:15 Temperature Pulse Rate 97 100 Respiratory Rate Blood Pressure Pulse Oximetry Oxygen Delivery Room Air Fraction of Inspired Oxygen 03/20/24 00:00 03/20/24 04:00 03/20/24 06:00 Temperature 98.1 F Pulse Rate 96 89 79 Respiratory Rate 18 Blood Pressure 154/93 H Pulse Oximetry 100 Oxygen Delivery Fraction of Inspired Oxygen 03/20/24 08:16 Temperature Pulse Rate Respiratory Rate Blood Pressure Pulse Oximetry Oxygen Delivery Room Air Fraction of Inspired Oxygen Intake/Output Intake/Output: Intake & Output 01/02/25 03/18/24 03/19/24 03/20/24 23:59 23:59 23:59 23:59 Intake Total 50 720 540 Output Total 2029 Balance 50 -1310 540 Meds/Results Medications: Active Medications Generic Name Dose Route Start Last Admin Trade Name Freq PRN Reason Stop Dose Admin Acetaminophen 1,000 mg 03/19/24 12:42 03/19/24 15:02 Acetaminophen 500 Mg Tablet PO 1,000 mg Q6H PRN Administration Pain (Scale Score 1-3) Alprazolam 0.5 mg 03/19/24 12:44 03/19/24 22:26 Alprazolam (*Crx) 0.5 Mg Tablet PO 0.5 mg BID PRN Administration Anxiety Apixaban 5 mg 03/18/24 21:00 03/19/24 22:15 Apixaban 5 Mg Tablet PO 5 mg Q12HR MISHA Administration Calcium Carbonate 400 mg 03/19/24 12:42 Calcium Carbonate (Tums) 500 Mg (200 Mg Elemental) PO Q6H PRN Acid Reflux Dextrose 12.5 gm 03/18/24 12:58 Dextrose 50% 25 Gm/50 Ml Syringe IV PUSH PRN PRN Hypoglycemia Protocol Famotidine 20 mg 03/20/24 09:00 Famotidine 20 Mg Tablet PO DAILY MISHA Fluoxetine HCl 40 mg 03/20/24 09:00 Fluoxetine Hcl 20 Mg Capsule PO DAILY MISHA Fluticasone Propionate 1 spray 03/20/24 09:00 Fluticasone Propionate 0.05% Na Spr 16 Gm Btl (*Bkc) NASAL DAILY MISHA Furosemide 20 mg 03/19/24 09:00 03/19/24 08:56 Furosemide Inj 40 Mg/4 Ml Vial IV PUSH 20 mg DAILY MISHA Administration Glipizide 10 mg 03/19/24 17:00 03/19/24 17:59 Glipizide 5 Mg Tablet PO 10 mg BID MISHA Administration Glucagon 1 mg 03/18/24 12:58 Glucagon For Inj 1 Mg Vial IM PRN PRN Hypoglycemia Protocol Glucose 15 gm 03/18/24 12:58 Glucose Oral Gel 15 Gm Of Glucse In 37.5 Gm Tube PO PRN PRN Hypoglycemia Protocol Guaifenesin 600 mg 03/19/24 12:42 Guaifenesin 12 Hr 600 Mg Tabcr PO BID PRN congestion Dextrose 1,000 mls @ 100 mls/hr 03/18/24 12:58 Dextrose 5% 1,000 Ml IVPB PRN PRN Hypoglycemia Protocol Insulin Aspart 2 - 5 units 03/18/24 17:00 03/19/24 17:53 Insulin Aspart (*Bkc) 100 Units/Ml SUB-Q Not Given TIDWM MISHA Protocol Insulin Aspart 1 - 2 units 03/18/24 21:00 03/19/24 22:13 Insulin Aspart (*Bkc) 100 Units/Ml SUB-Q Not Given HS MISHA Protocol Levothyroxine Sodium 50 mcg 03/20/24 06:30 03/20/24 06:43 Levothyroxine Sodium 50 Mcg Tablet PO 50 mcg DAILY@0630 MISHA Administration Loratadine 10 mg 03/20/24 09:00 Loratadine 10 Mg Tablet PO DAILY MISHA Metformin HCl 500 mg 03/19/24 17:00 03/19/24 17:59 Metformin Hcl 500 Mg Tablet PO 500 mg BIDWM MISHA Administration Metoprolol Tartrate 50 mg 03/19/24 10:25 03/19/24 22:15 Metoprolol Tartrate 50 Mg Tab PO 50 mg Q12HR MISHA Administration Ondansetron HCl 4 mg 03/19/24 12:42 Ondansetron Hcl Odt 4 Mg Tablet PO Q8H PRN nausea and vomiting Pantoprazole Sodium 40 mg 03/19/24 17:00 03/19/24 17:59 Pantoprazole 40 Mg Tablet PO 40 mg BID MISHA Administration Perflutren Lipid Microsphere 0 ml 03/18/24 12:09 Perflutren Lipid Microspheres 1.5 Ml Vial Diluted To 10 Ml Total Volume IV PUSH 03/21/24 12:10 ONCE PRN adequate visualization Protocol Polyethylene Glycol 17 gm 03/20/24 09:00 Polyethylene Glycol 3350 17 Gm Powd.Pack PO QAM MISHA Rosuvastatin Calcium 20 mg 03/19/24 21:00 03/19/24 22:15 Rosuvastatin 20 Mg Tablet PO 20 mg HS MISHA Administration Spironolactone 50 mg 03/19/24 10:25 03/19/24 10:36 Spironolactone 50 Mg Tablet PO 50 mg QAM MISHA Administration Sucralfate 1 gm 03/19/24 16:30 03/20/24 06:43 Sucralfate 1 Gm Tablet PO 1 gm ACHS MISHA Administration Vitamin D 2,000 units 03/20/24 09:00 Cholecalciferol 1,000 Units Tablet PO DAILY MISHA Radiology Results: ITS Impressions Chest X-Ray 03/18/24 09:41 IMPRESSION: 1. Mild opacities in the left lower lung zone which could represent atelectasis or pneumonia. 2. Cardiomegaly and enlargement of the central pulmonary arteries consistent with pulmonary arterial hypertension. Chest CT 03/18/24 10:25 IMPRESSION: 1. Mild pulmonary edema. 2. Small pleural effusions. 3. Small pericardial effusion with small are of calcific pericarditis. Abdomen Ultrasound 03/18/24 13:51 IMPRESSION: 1. Mild right hydroureteronephrosis. Consider CT to assess for obstructing stone or mass. 2. Otherwise unremarkable right upper quadrant ultrasound with common bile duct measuring 8 mm which is for age and postcholecystectomy. Labs Labs: Laboratory Results - last 24 hr 03/19/24 03/19/24 03/19/24 12:06 16:59 19:42 WBC RBC Hgb Hct MCV MCH MCHC RDW Plt Count MPV Immature Gran % (Auto) Neut % (Auto) Lymph % (Auto) [place] % (Auto) Eos % (Auto) Baso % (Auto) Lymph # (Auto) [place] # (Auto) Eos # (Auto) Baso # (Auto) Abs Immat Gran (auto) Absolute Neuts (auto) Absolute Nucleated RBC Nucleated RBC % Sodium Potassium Chloride Carbon Dioxide Anion Gap BUN Creatinine Estim Creat Clear Calc Estimated GFR Glucose POC Capillary Glucose 164 H 169 H 167 H Calcium Magnesium Total Bilirubin AST ALT Alkaline Phosphatase Total Protein Albumin 03/20/24 03/20/24 05:29 07:56 WBC 5.3 RBC 3.77 L Hgb 9.8 L Hct 32.4 L MCV 85.9 MCH 26.0 MCHC 30.2 L RDW 18.2 H Plt Count 405 H MPV 9.8 Immature Gran % (Auto) 0.4 Neut % (Auto) 64.0 Lymph % (Auto) 22.3 [place] % (Auto) 10.4 H Eos % (Auto) 2.3 Baso % (Auto) 0.6 Lymph # (Auto) 1.18 [place] # (Auto) 0.6 Eos # (Auto) 0.1 Baso # (Auto) 0.0 Abs Immat Gran (auto) 0.02 Absolute Neuts (auto) 3.4 Absolute Nucleated RBC 0.020 H Nucleated RBC % 0.4 H Sodium 133 L Potassium 3.7 Chloride 102 Carbon Dioxide 26 Anion Gap 5 BUN 20 H Creatinine 0.60 L Estim Creat Clear Calc 63 Estimated GFR > 60 Glucose 134 H POC Capillary Glucose 140 H Calcium 8.9 Magnesium 1.4 L Total Bilirubin 0.6 AST 39 H ALT 124 H Alkaline Phosphatase 131 H Total Protein 6.0 L Albumin 3.3 L Quality VTE Prophylaxis VTE prophylaxis: pharmacologic ordered (on apixaban)
[2024-03-20] MEDS: CHOLECALCIFEROL 1,000 UNITS TABLET 2000 UNITS PO (09:14)
[2024-03-20] MEDS: FLUTICASONE PROPIONATE 0.05% NA SPR 16 GM BTL (*BKC) 1 SPRAY NASAL (09:14)
[2024-03-20] MEDS: FAMOTIDINE 20 MG TABLET PO (09:14)
[2024-03-20] MEDS: APIXABAN 5 MG TABLET PO ×2 (09:14→20:15)
[2024-03-20] MEDS: metFORMIN HCL 500 MG TABLET PO ×2 (09:14→18:21)
[2024-03-20] MEDS: FUROSEMIDE INJ 40 MG/4 ML VIAL 20 MG IV PUSH (09:15)
[2024-03-20] MEDS: polyethylene glycoL 3350 17 GM POWD.PACK PO (09:15)
[2024-03-20] MEDS: PANTOPRAZOLE 40 MG TABLET PO ×2 (09:15→18:21)
[2024-03-20] MEDS: glipiZIDE 5 MG TABLET 10 MG PO ×2 (09:15→18:21)
[2024-03-20] MEDS: LORATADINE 10 MG TABLET PO (09:15)
[2024-03-20] MEDS: SPIRONOLACTONE 50 MG TABLET PO (09:15)
[2024-03-20] MEDS: METOPROLOL TARTRATE 50 MG TAB PO (09:15)
[2024-03-20] MEDS: FLUoxetine HCL 20 MG CAPSULE 40 MG PO (09:16)
[2024-03-20] MEDS: MAGNESIUM OXIDE 400 MG TABLET PO (09:20)
[2024-03-20 13:01] LABS: Glucose Point of Care 190 mg/dl (65-105)
[2024-03-20 17:20] LABS: Glucose Point of Care 117 mg/dl (65-105)
[2024-03-20 17:54] LABS: Iron 29 ug/dL (37-170)
[2024-03-20 18:03] LABS: Percent Iron Saturation 8 % (20-50); TOTAL IRON BINDING CAPACITY 385 ug/dL (261-462)
[2024-03-20] MEDS: METOPROLOL SUCCINATE EXT REL 25 MG, METOPROLOL SUCCINATE EXT REL 50 MG 75 MG PO (18:21)
[2024-03-20 19:59] LABS: Vitamin B12 > 1000.0 pg/mL (239-931)
[2024-03-20] MEDS: ALPRAZolam (*CRX) 0.5 MG TABLET PO (20:15)
[2024-03-20] MEDS: ROSUVASTATIN 20 MG TABLET PO (20:15)
[2024-03-20 21:54] LABS: Glucose Point of Care 130 mg/dl (65-105)
[2024-03-21] VITALS (12 sets, daily range): BP systolic 131–143; BP diastolic 56–94; PULSE 68–108; RESP 14–18; TEMP 36.6–36.9; O2SAT 94–99
[2024-03-21 02:32] LABS: IFOB Positive Control Positive; Immunochemical Fecal Occult Bl Negative (N)
[2024-03-21] MEDS: LEVOTHYROXINE SODIUM 50 MCG TABLET PO (04:42)
[2024-03-21] MEDS: ALPRAZolam (*CRX) 0.5 MG TABLET PO ×2 (04:42→20:42)
[2024-03-21] MEDS: SUCRALFATE 1 GM TABLET PO ×4 (04:42→20:42)
[2024-03-21 05:48] LABS: Basophils Percent Auto 0.4 % (0.2-1.2); Eosinophils Absolute Auto 0.1 K/mm3 (0-0.3); Eosinophils Percent Auto 1.4 % (0-4.4); Hematocrit 31.3 % (37.0-47.0); Hemoglobin 9.5 g/dL (12.0-15.0); Immature Granulocyte Absolute 0.02 K/mm3 (0.00-0.031); Immature Granulocyte Percent A 0.3 % (0-0.5); Lymphocytes Absolute Auto 1.22 K/mm3 (0.9-3.2); Lymphocytes Percent Auto 17.4 % (18.3-44.2); Mean Corpuscular HGB Conc 30.4 g/dl (32-36); Mean Corpuscular Hemoglobin 25.9 pg (26-34); Mean Corpuscular Volume 85.3 fl (80-100); Mean Platelet Volume 9.9 fl (7.4-10.4); Monocytes Absolute Auto 0.6 K/mm3 (0.1-0.6); Monocytes Percent Auto 8.5 % (2.6-8.5); Neutrophils Absolute Auto 5.1 K/mm3 (1.3-6.7); Platelet Count Result 398 k/mm3 (150-375); Red Blood Count 3.67 M/mm3 (4.2-5.4); Red Cell Distribution Width 18.2 % (11.5-14.5)
[2024-03-21 06:11] LABS: Alanine Aminotransferase 102 U/L (6-35); Albumin Level 3.2 g/dL (3.5-5.1); Alkaline Phosphatase 130 U/L (38-126); Anion Gap 0 mmol/L (4-12); Aspartate Amino Transferase 40 U/L (14-36); Bilirubin,Total 0.7 mg/dL (0.2-1.3); Blood Urea Nitrogen 16 mg/dL (7-17); Calcium 8.8 mg/dL (8.4-10.2); Carbon Dioxide 30 mmol/L (22-30); Chloride 102 mmol/L (98-107); Estimated CRCL calculation 64 ml/min; Estimated Glomerular Filt Rate > 60; Glucose 136 mg/dL (65-110); Magnesium 1.4 mg/dL (1.6-2.3); Sodium 132 mmol/L (137-145)
--- NOTE | 2024-03-21 07:33 | PM.IMPN ---
Progress Note: A&P Assessment and Plan (1) Atrial fibrillation with rapid ventricular response: Code(s): I48.91 - Unspecified atrial fibrillation Status: Acute Assessment and Plan: She has chronic atrial fibrillation and is on metoprolol for rate control and apixaban for stroke prophylaxis. Heart rate has improved somewhat with IV metoprolol given in the ED. Continue scheduled metoprolol with telemetry monitoring. HR reviewed and stable (2) CHF exacerbation: Code(s): I50.9 - Heart failure, unspecified Status: Acute Assessment and Plan: She has mild pulmonary edema on chest x-ray and proBNP is higher than what it typically runs. 40 mg PO furosemide for diuresis -switched to her home meds now Continue spironolactone and metoprolol. i/o reviewed, no leg edema on exam, no sob (3) Heart failure with preserved ejection fraction: Code(s): I50.30 - Unspecified diastolic (congestive) heart failure Status: Acute Assessment and Plan: As above. (4) Elevated LFTs: Code(s): R79.89 - Other specified abnormal findings of blood chemistry Status: Acute Assessment and Plan: No GI c/o. Suspect hepatic congestion. (5) Pericardial effusion: Code(s): I31.39 - Other pericardial effusion (noninflammatory) Status: Acute Assessment and Plan: 03/19 echo - Left ventricular systolic function is normal, estimated at 55-60%. Recommendations * Consider low dose DSE as an outpatient or aortic valve calcium score. * Consider ARIADNE to assess mitral valve. (6) Hypomagnesemia: Code(s): E83.42 - Hypomagnesemia Status: Acute Assessment and Plan: repalce MG and monitor (7) Chronic anemia: Code(s): D64.9 - Anemia, unspecified Status: Acute Assessment and Plan: hg 9.8-stable (8) Type 2 diabetes mellitus without complications: Code(s): E11.9 - Type 2 diabetes mellitus without complications Status: Acute Assessment and Plan: hypoglycemia protocol ss AccuCheck ac/hs (9) Obstructive sleep apnea on CPAP: Code(s): G47.33 - Obstructive sleep apnea (adult) (pediatric) Status: Acute Assessment and Plan: continue home cpap Time Spent With Patient Time with patient: Greater than 35 minutes Subjective Date/time seen: 03/21/24 07:33 Interval history: pt is seen and examined. feeling better. Swelling improving. Tolerated diet. Denied chest pain or shortness of breath at rest. Denied GI or issues. Denied any weakness. Still feeling WEAK THOUGHT- WORKING WITH pt/ot. bm THIS AM. PT/OT worked with her- recommending SNF. care coordination is on board. Anticipate discharge within the next few days Review of Systems Review of Systems: generalized weakness Constitutional: Constitutional: Denies chills Eyes: Eyes: Denies blurry vision Cardiovascular: Cardiovascular: Denies chest pain Respiratory: Respiratory: Denies chest congestion Gastrointestinal: Gastrointestinal: Denies abdominal pain Musculoskeletal: Musculoskeletal: Denies back pain Exam Narrative: General: Well-developed elderly female sitting up in bed in no acute distress. HEENT: PERRL. Sclera anicteric. Moist mucous membranes. Neck: Supple. No significant jugular venous distention. Respiratory: Respirations are nonlabored she is speaking full sentences. Lung sounds are a bit diminished at the bases with faint crackles. Cardiovascular: Irregularly irregular rate and rhythm. Tachycardic. Systolic murmur best heard at the upper sternal border. Gastrointestinal: Abdomen is soft, obese, nontender, and nondistended with positive bowel sounds. Skin: Warm and dry. Generalized pallor. Extremities: No cyanosis or clubbing. 1+ pedal edema up to the knees bilaterally. No palpable knots or cords. Neurological: Alert. Cranial nerves 2-12 are grossly intact. No gross focal deficits to casual conversation. Musculoskeletal: No gross deformity to visual inspection. Psychiatric: Pleasant and cooperative with appropriate mood. Const: General: comfortable Objective Data Vital Signs Vital Signs: Vital Signs - 24 hr 03/20/24 08:00 03/20/24 08:16 03/20/24 09:15 Temperature Pulse Rate 102 H 108 H Respiratory Rate Blood Pressure Pulse Oximetry Oxygen Delivery Room Air 03/20/24 09:20 03/20/24 12:00 03/20/24 14:00 Temperature 97.4 F L Pulse Rate 108 H 98 Respiratory Rate 18 Blood Pressure 125/82 Pulse Oximetry 98 Oxygen Delivery Room Air 03/20/24 16:00 03/20/24 18:21 03/20/24 20:00 Temperature Pulse Rate 82 90 Respiratory Rate Blood Pressure Pulse Oximetry Oxygen Delivery Room Air 03/20/24 20:00 03/20/24 21:25 03/20/24 22:00 Temperature 98.4 F Pulse Rate 106 H 102 H 78 Respiratory Rate 16 16 Blood Pressure 135/87 Pulse Oximetry 97 97 Oxygen Delivery CPAP 03/21/24 00:00 03/21/24 04:00 03/21/24 06:00 Temperature 98.4 F Pulse Rate 108 H 105 H 84 Respiratory Rate 16 Blood Pressure 136/56 L Pulse Oximetry 97 Oxygen Delivery Intake/Output Intake/Output: Intake & Output 03/18/24 03/19/24 03/20/24 03/21/24 23:59 23:59 23:59 23:59 Intake Total 50 720 1140 200 Output Total 2030 125 100 Balance 50 -1310 1015 100 Meds/Results Medications: Active Medications Generic Name Dose Route Start Last Admin Trade Name Freq PRN Reason Stop Dose Admin Acetaminophen 1,000 mg 03/19/24 12:42 03/19/24 15:02 Acetaminophen 500 Mg Tablet PO 1,000 mg Q6H PRN Administration Pain (Scale Score 1-3) Alprazolam 0.5 mg 03/19/24 12:44 03/21/24 04:42 Alprazolam (*Crx) 0.5 Mg Tablet PO 0.5 mg BID PRN Administration Anxiety Apixaban 5 mg 03/18/24 21:00 03/20/24 20:15 Apixaban 5 Mg Tablet PO 5 mg Q12HR MISHA Administration Calcium Carbonate 400 mg 03/19/24 12:42 Calcium Carbonate (Tums) 500 Mg (200 Mg Elemental) PO Q6H PRN Acid Reflux Dextrose 12.5 gm 03/18/24 12:58 Dextrose 50% 25 Gm/50 Ml Syringe IV PUSH PRN PRN Hypoglycemia Protocol Famotidine 20 mg 03/20/24 09:00 03/20/24 09:14 Famotidine 20 Mg Tablet PO 20 mg DAILY MISHA Administration Fluoxetine HCl 40 mg 03/20/24 09:00 03/20/24 09:16 Fluoxetine Hcl 20 Mg Capsule PO 40 mg DAILY MISHA Administration Fluticasone Propionate 1 spray 03/20/24 09:00 03/20/24 09:14 Fluticasone Propionate 0.05% Na Spr 16 Gm Btl (*Bkc) NASAL 1 spray DAILY MISHA Administration Furosemide 20 mg 03/19/24 09:00 03/20/24 09:15 Furosemide Inj 40 Mg/4 Ml Vial IV PUSH 20 mg DAILY MISHA Administration Glipizide 10 mg 03/19/24 17:00 03/20/24 18:21 Glipizide 5 Mg Tablet PO 10 mg BID MISHA Administration Glucagon 1 mg 03/18/24 12:58 Glucagon For Inj 1 Mg Vial IM PRN PRN Hypoglycemia Protocol Glucose 15 gm 03/18/24 12:58 Glucose Oral Gel 15 Gm Of Glucse In 37.5 Gm Tube PO PRN PRN Hypoglycemia Protocol Guaifenesin 600 mg 03/19/24 12:42 Guaifenesin 12 Hr 600 Mg Tabcr PO BID PRN congestion Dextrose 1,000 mls @ 100 mls/hr 03/18/24 12:58 Dextrose 5% 1,000 Ml IVPB PRN PRN Hypoglycemia Protocol Insulin Aspart 2 - 5 units 03/18/24 17:00 03/20/24 18:18 Insulin Aspart (*Bkc) 100 Units/Ml SUB-Q Not Given TIDWM MISHA Protocol Insulin Aspart 1 - 2 units 03/18/24 21:00 03/20/24 20:15 Insulin Aspart (*Bkc) 100 Units/Ml SUB-Q Not Given HS MISHA Protocol Levothyroxine Sodium 50 mcg 03/20/24 06:30 03/21/24 04:42 Levothyroxine Sodium 50 Mcg Tablet PO 50 mcg DAILY@0630 MISHA Administration Loratadine 10 mg 03/20/24 09:00 03/20/24 09:15 Loratadine 10 Mg Tablet PO 10 mg DAILY MISHA Administration Magnesium Oxide 400 mg 03/20/24 09:10 03/20/24 09:20 Magnesium Oxide 400 Mg Tablet PO 400 mg DAILY MISHA Administration Metformin HCl 500 mg 03/19/24 17:00 03/20/24 18:21 Metformin Hcl 500 Mg Tablet PO 500 mg BIDWM MISHA Administration Metoprolol Succinate 25 mg/ 75 mg 03/20/24 17:00 03/20/24 18:21 Metoprolol Succinate 50 mg PO 75 mg BID MISHA Administration Ondansetron HCl 4 mg 03/19/24 12:42 Ondansetron Hcl Odt 4 Mg Tablet PO Q8H PRN nausea and vomiting Pantoprazole Sodium 40 mg 03/19/24 17:00 03/20/24 18:21 Pantoprazole 40 Mg Tablet PO 40 mg BID MISHA Administration Perflutren Lipid Microsphere 0 ml 03/18/24 12:09 Perflutren Lipid Microspheres 1.5 Ml Vial Diluted To 10 Ml Total Volume IV PUSH 03/21/24 12:10 ONCE PRN adequate visualization Protocol Polyethylene Glycol 17 gm 03/20/24 09:00 03/20/24 09:15 Polyethylene Glycol 3350 17 Gm Powd.Pack PO 17 gm QAM MISHA Administration Rosuvastatin Calcium 20 mg 03/19/24 21:00 03/20/24 20:15 Rosuvastatin 20 Mg Tablet PO 20 mg HS MISHA Administration Spironolactone 50 mg 03/19/24 10:25 03/20/24 09:15 Spironolactone 50 Mg Tablet PO 50 mg QAM MISHA Administration Sucralfate 1 gm 03/19/24 16:30 03/21/24 04:42 Sucralfate 1 Gm Tablet PO 1 gm ACHS MISHA Administration Vitamin D 2,000 units 03/20/24 09:00 03/20/24 09:14 Cholecalciferol 1,000 Units Tablet PO 2,000 units DAILY MISHA Administration Radiology Results: ITS Impressions Chest X-Ray 03/18/24 09:41 IMPRESSION: 1. Mild opacities in the left lower lung zone which could represent atelectasis or pneumonia. 2. Cardiomegaly and enlargement of the central pulmonary arteries consistent with pulmonary arterial hypertension. Chest CT 03/18/24 10:25 IMPRESSION: 1. Mild pulmonary edema. 2. Small pleural effusions. 3. Small pericardial effusion with small are of calcific pericarditis. Abdomen Ultrasound 03/18/24 13:51 IMPRESSION: 1. Mild right hydroureteronephrosis. Consider CT to assess for obstructing stone or mass. 2. Otherwise unremarkable right upper quadrant ultrasound with common bile duct measuring 8 mm which is for age and postcholecystectomy. Labs Labs: Laboratory Results - last 24 hr 03/20/24 03/20/24 03/20/24 05:29 07:56 12:43 WBC RBC Hgb Hct MCV MCH MCHC RDW Plt Count MPV Immature Gran % (Auto) Neut % (Auto) Lymph % (Auto) [place] % (Auto) Eos % (Auto) Baso % (Auto) Lymph # (Auto) [place] # (Auto) Eos # (Auto) Baso # (Auto) Abs Immat Gran (auto) Absolute Neuts (auto) Absolute Nucleated RBC Nucleated RBC % Sodium Potassium Chloride Carbon Dioxide Anion Gap BUN Creatinine Estim Creat Clear Calc Estimated GFR Glucose POC Capillary Glucose 140 H 190 H Calcium Magnesium Iron 29 L TIBC 385 % Saturation 8 L Total Bilirubin AST ALT Alkaline Phosphatase Total Protein Albumin Vitamin B12 > 1000.0 H Folate 10.0 Stl Occult Blood (IFOB) 03/20/24 03/20/24 03/21/24 17:09 19:50 01:47 WBC RBC Hgb Hct MCV MCH MCHC RDW Plt Count MPV Immature Gran % (Auto) Neut % (Auto) Lymph % (Auto) [place] % (Auto) Eos % (Auto) Baso % (Auto) Lymph # (Auto) [place] # (Auto) Eos # (Auto) Baso # (Auto) Abs Immat Gran (auto) Absolute Neuts (auto) Absolute Nucleated RBC Nucleated RBC % Sodium Potassium Chloride Carbon Dioxide Anion Gap BUN Creatinine Estim Creat Clear Calc Estimated GFR Glucose POC Capillary Glucose 117 H 130 H Calcium Magnesium Iron TIBC % Saturation Total Bilirubin AST ALT Alkaline Phosphatase Total Protein Albumin Vitamin B12 Folate Stl Occult Blood (IFOB) Negative 03/21/24 04:26 WBC 7.0 RBC 3.67 L Hgb 9.5 L Hct 31.3 L MCV 85.3 MCH 25.9 L MCHC 30.4 L RDW 18.2 H Plt Count 398 H MPV 9.9 Immature Gran % (Auto) 0.3 Neut % (Auto) 72.0 Lymph % (Auto) 17.4 L [place] % (Auto) 8.5 Eos % (Auto) 1.4 Baso % (Auto) 0.4 Lymph # (Auto) 1.22 [place] # (Auto) 0.6 Eos # (Auto) 0.1 Baso # (Auto) 0.0 Abs Immat Gran (auto) 0.02 Absolute Neuts (auto) 5.1 Absolute Nucleated RBC 0.000 Nucleated RBC % 0.0 Sodium 132 L Potassium 4.0 Chloride 102 Carbon Dioxide 30 Anion Gap 0 L BUN 16 Creatinine 0.60 L Estim Creat Clear Calc 64 Estimated GFR > 60 Glucose 136 H POC Capillary Glucose Calcium 8.8 Magnesium 1.4 L Iron TIBC % Saturation Total Bilirubin 0.7 AST 40 H ALT 102 H Alkaline Phosphatase 130 H Total Protein 6.0 L Albumin 3.2 L Vitamin B12 Folate Stl Occult Blood (IFOB) Quality VTE Prophylaxis VTE prophylaxis: pharmacologic ordered (on apixaban)
[2024-03-21] MEDS: metFORMIN HCL 500 MG TABLET PO ×2 (08:22→16:30)
[2024-03-21] MEDS: FAMOTIDINE 20 MG TABLET PO (08:23)
[2024-03-21] MEDS: CHOLECALCIFEROL 1,000 UNITS TABLET 2000 UNITS PO (08:23)
[2024-03-21] MEDS: APIXABAN 5 MG TABLET PO ×2 (08:23→20:42)
[2024-03-21] MEDS: FLUTICASONE PROPIONATE 0.05% NA SPR 16 GM BTL (*BKC) 1 SPRAY NASAL (08:23)
[2024-03-21] MEDS: FLUoxetine HCL 20 MG CAPSULE 40 MG PO (08:23)
[2024-03-21] MEDS: glipiZIDE 5 MG TABLET 10 MG PO ×2 (08:24→16:30)
[2024-03-21] MEDS: MAGNESIUM OXIDE 400 MG TABLET PO (08:24)
[2024-03-21] MEDS: METOPROLOL SUCCINATE EXT REL 25 MG, METOPROLOL SUCCINATE EXT REL 50 MG 75 MG PO ×2 (08:24→16:30)
[2024-03-21] MEDS: SPIRONOLACTONE 50 MG TABLET PO (08:24)
[2024-03-21] MEDS: polyethylene glycoL 3350 17 GM POWD.PACK PO (08:24)
[2024-03-21] MEDS: PANTOPRAZOLE 40 MG TABLET PO ×2 (08:24→16:30)
[2024-03-21] MEDS: LORATADINE 10 MG TABLET PO (08:24)
[2024-03-21 08:30] LABS: Glucose Point of Care 136 mg/dl (65-105)
[2024-03-21] MEDS: FUROSEMIDE 40 MG TABLET PO (08:31)
--- NOTE | 2024-03-21 10:08 | PM.PNCARD ---
Progress Note: A&P Assessment and Plan (1) Valvular heart disease: Code(s): I38 - Endocarditis, valve unspecified Status: Acute (2) Atrial fibrillation with RVR: Code(s): I48.91 - Unspecified atrial fibrillation Status: Acute Plan 1. Atrial fibrillation 2. Low-flow low gradient potentially moderate aortic stenosis Vmax 246, MG 16, DI 0.31, HOLLI by continuity 0.8, HOLLI by planimetry cannot be done as no short axis view -continue low-dose diuretic, shift to furosemide 40 mg oral today -consider low-dose dobutamine stress echo as an outpatient or aortic valve calcium to assist aortic valve. This can be determined by her established mortgage loan originator, Dr. Mendes -continue anticoagulation for cardioembolic risk reduction -rates much better controlled after increasing the metoprolol 75 b.i.d. this can be shifted to Toprol XL adequate lead does on discharge. -should be maintained on low-dose diuretic at discharge -cardiology will sign off. Please call with any questions. Subjective Date/time seen: 03/21/24 10:08 Interval history: Cardiology follow-up for CHF Date of service 03/21/2024: Her swelling is improving. She denies any shortness of breath, palpitations, orthopnea, chest pain. Review of Systems Review of Systems: 12 systems were reviewed and are negative except for as per HPI. All systems reviewed & are unremarkable except as noted in HPI and below Exam Narrative: General: Well-developed elderly female sitting up in bed in no acute distress. HEENT: PERRL. Sclera anicteric. Moist mucous membranes. Neck: Supple. No significant jugular venous distention. Respiratory: Respirations are nonlabored she is speaking full sentences. Lung sounds are a bit diminished at the bases with faint crackles. Cardiovascular: Irregularly irregular rhythm. Regular rate. Systolic murmur best heard at the upper sternal border. Gastrointestinal: Abdomen is soft, obese, nontender, and nondistended with positive bowel sounds. Skin: Warm and dry. Generalized pallor. Extremities: No cyanosis or clubbing. 1+ pedal edema up to the knees bilaterally. No palpable knots or cords. Neurological: Alert. Cranial nerves 2-12 are grossly intact. No gross focal deficits to casual conversation. Musculoskeletal: No gross deformity to visual inspection. Psychiatric: Pleasant and cooperative with appropriate mood. Objective Data Vital Signs Vital Signs: Vital Signs - 24 hr 03/20/24 12:00 03/20/24 14:00 03/20/24 16:00 Temperature 36.3 C L Pulse Rate 108 H 98 82 Respiratory Rate 18 Blood Pressure 125/82 Pulse Oximetry 98 Oxygen Delivery 03/20/24 18:21 03/20/24 20:00 03/20/24 20:00 Temperature Pulse Rate 90 106 H Respiratory Rate Blood Pressure Pulse Oximetry Oxygen Delivery Room Air 03/20/24 21:25 03/20/24 22:00 03/21/24 00:00 Temperature 36.9 C Pulse Rate 102 H 78 108 H Respiratory Rate 16 16 Blood Pressure 135/87 Pulse Oximetry 97 97 Oxygen Delivery CPAP 03/21/24 04:00 03/21/24 06:00 03/21/24 08:00 Temperature 36.9 C Pulse Rate 105 H 84 Respiratory Rate 16 Blood Pressure 136/56 L Pulse Oximetry 97 97 Oxygen Delivery Room Air 03/21/24 08:00 03/21/24 08:24 Temperature Pulse Rate 92 93 Respiratory Rate Blood Pressure Pulse Oximetry Oxygen Delivery Intake/Output Intake/Output: Intake & Output 03/18/24 03/19/24 03/20/24 03/21/24 23:59 23:59 23:59 23:59 Intake Total 50 720 1140 200 Output Total 2030 125 100 Balance 50 -1310 1015 100 Meds/Results Medications: Active Medications Generic Name Dose Route Start Last Admin Trade Name Freq PRN Reason Stop Dose Admin Acetaminophen 1,000 mg 03/19/24 12:42 03/19/24 15:02 Acetaminophen 500 Mg Tablet PO 1,000 mg Q6H PRN Administration Pain (Scale Score 1-3) Alprazolam 0.5 mg 03/19/24 12:44 03/21/24 04:42 Alprazolam (*Crx) 0.5 Mg Tablet PO 0.5 mg BID PRN Administration Anxiety Apixaban 5 mg 03/18/24 21:00 03/21/24 08:23 Apixaban 5 Mg Tablet PO 5 mg Q12HR MISHA Administration Calcium Carbonate 400 mg 03/19/24 12:42 Calcium Carbonate (Tums) 500 Mg (200 Mg Elemental) PO Q6H PRN Acid Reflux Dextrose 12.5 gm 03/18/24 12:58 Dextrose 50% 25 Gm/50 Ml Syringe IV PUSH PRN PRN Hypoglycemia Protocol Famotidine 20 mg 03/20/24 09:00 03/21/24 08:23 Famotidine 20 Mg Tablet PO 20 mg DAILY MISHA Administration Fluoxetine HCl 40 mg 03/20/24 09:00 03/21/24 08:23 Fluoxetine Hcl 20 Mg Capsule PO 40 mg DAILY MISHA Administration Fluticasone Propionate 1 spray 03/20/24 09:00 03/21/24 08:23 Fluticasone Propionate 0.05% Na Spr 16 Gm Btl (*Bkc) NASAL 1 spray DAILY MISHA Administration Furosemide 40 mg 03/21/24 09:00 03/21/24 08:31 Furosemide 40 Mg Tablet PO 40 mg DAILY MISHA Administration Glipizide 10 mg 03/19/24 17:00 03/21/24 08:24 Glipizide 5 Mg Tablet PO 10 mg BID MISHA Administration Glucagon 1 mg 03/18/24 12:58 Glucagon For Inj 1 Mg Vial IM PRN PRN Hypoglycemia Protocol Glucose 15 gm 03/18/24 12:58 Glucose Oral Gel 15 Gm Of Glucse In 37.5 Gm Tube PO PRN PRN Hypoglycemia Protocol Guaifenesin 600 mg 03/19/24 12:42 Guaifenesin 12 Hr 600 Mg Tabcr PO BID PRN congestion Dextrose 1,000 mls @ 100 mls/hr 03/18/24 12:58 Dextrose 5% 1,000 Ml IVPB PRN PRN Hypoglycemia Protocol Insulin Aspart 2 - 5 units 03/18/24 17:00 03/21/24 08:33 Insulin Aspart (*Bkc) 100 Units/Ml SUB-Q Not Given TIDWM [facility] Protocol Insulin Aspart 1 - 2 units 03/18/24 21:00 03/20/24 20:15 Insulin Aspart (*Bkc) 100 Units/Ml SUB-Q Not Given HS [facility] Protocol Levothyroxine Sodium 50 mcg 03/20/24 06:30 03/21/24 04:42 Levothyroxine Sodium 50 Mcg Tablet PO 50 mcg DAILY@0630 MISHA Administration Loratadine 10 mg 03/20/24 09:00 03/21/24 08:24 Loratadine 10 Mg Tablet PO 10 mg DAILY MISHA Administration Magnesium Oxide 400 mg 03/20/24 09:10 03/21/24 08:24 Magnesium Oxide 400 Mg Tablet PO 400 mg DAILY MISHA Administration Metformin HCl 500 mg 03/19/24 17:00 03/21/24 08:22 Metformin Hcl 500 Mg Tablet PO 500 mg BIDWM MISHA Administration Metoprolol Succinate 25 mg/ 75 mg 03/20/24 17:00 03/21/24 08:24 Metoprolol Succinate 50 mg PO 75 mg BID MISHA Administration Ondansetron HCl 4 mg 03/19/24 12:42 Ondansetron Hcl Odt 4 Mg Tablet PO Q8H PRN nausea and vomiting Pantoprazole Sodium 40 mg 03/19/24 17:00 03/21/24 08:24 Pantoprazole 40 Mg Tablet PO 40 mg BID MISHA Administration Perflutren Lipid Microsphere 0 ml 03/18/24 12:09 Perflutren Lipid Microspheres 1.5 Ml Vial Diluted To 10 Ml Total Volume IV PUSH 03/21/24 12:10 ONCE PRN adequate visualization Protocol Polyethylene Glycol 17 gm 03/20/24 09:00 03/21/24 08:24 Polyethylene Glycol 3350 17 Gm Powd.Pack PO 17 gm QAM MISHA Administration Rosuvastatin Calcium 20 mg 03/19/24 21:00 03/20/24 20:15 Rosuvastatin 20 Mg Tablet PO 20 mg HS MISHA Administration Spironolactone 50 mg 03/19/24 10:25 03/21/24 08:24 Spironolactone 50 Mg Tablet PO 50 mg QAM MISHA Administration Sucralfate 1 gm 03/19/24 16:30 03/21/24 04:42 Sucralfate 1 Gm Tablet PO 1 gm ACHS MISHA Administration Vitamin D 2,000 units 03/20/24 09:00 03/21/24 08:23 Cholecalciferol 1,000 Units Tablet PO 2,000 units DAILY MISHA Administration Radiology Results: ITS Impressions Chest X-Ray 03/18/24 09:41 IMPRESSION: 1. Mild opacities in the left lower lung zone which could represent atelectasis or pneumonia. 2. Cardiomegaly and enlargement of the central pulmonary arteries consistent with pulmonary arterial hypertension. Chest CT 03/18/24 10:25 IMPRESSION: 1. Mild pulmonary edema. 2. Small pleural effusions. 3. Small pericardial effusion with small are of calcific pericarditis. Abdomen Ultrasound 03/18/24 13:51 IMPRESSION: 1. Mild right hydroureteronephrosis. Consider CT to assess for obstructing stone or mass. 2. Otherwise unremarkable right upper quadrant ultrasound with common bile duct measuring 8 mm which is for age and postcholecystectomy. Labs Labs: Laboratory Results - last 24 hr 03/20/24 03/20/24 03/20/24 05:29 12:43 17:09 WBC RBC Hgb Hct MCV MCH MCHC RDW Plt Count MPV Immature Gran % (Auto) Neut % (Auto) Lymph % (Auto) [place] % (Auto) Eos % (Auto) Baso % (Auto) Lymph # (Auto) [place] # (Auto) Eos # (Auto) Baso # (Auto) Abs Immat Gran (auto) Absolute Neuts (auto) Absolute Nucleated RBC Nucleated RBC % Sodium Potassium Chloride Carbon Dioxide Anion Gap BUN Creatinine Estim Creat Clear Calc Estimated GFR Glucose POC Capillary Glucose 190 H 117 H Calcium Magnesium Iron 29 L TIBC 385 % Saturation 8 L Total Bilirubin AST ALT Alkaline Phosphatase Total Protein Albumin Vitamin B12 > 1000.0 H Folate 10.0 Stl Occult Blood (IFOB) 03/20/24 03/21/24 03/21/24 19:50 01:47 04:26 WBC 7.0 RBC 3.67 L Hgb 9.5 L Hct 31.3 L MCV 85.3 MCH 25.9 L MCHC 30.4 L RDW 18.2 H Plt Count 398 H MPV 9.9 Immature Gran % (Auto) 0.3 Neut % (Auto) 72.0 Lymph % (Auto) 17.4 L [place] % (Auto) 8.5 Eos % (Auto) 1.4 Baso % (Auto) 0.4 Lymph # (Auto) 1.22 [place] # (Auto) 0.6 Eos # (Auto) 0.1 Baso # (Auto) 0.0 Abs Immat Gran (auto) 0.02 Absolute Neuts (auto) 5.1 Absolute Nucleated RBC 0.000 Nucleated RBC % 0.0 Sodium 132 L Potassium 4.0 Chloride 102 Carbon Dioxide 30 Anion Gap 0 L BUN 16 Creatinine 0.60 L Estim Creat Clear Calc 64 Estimated GFR > 60 Glucose 136 H POC Capillary Glucose 130 H Calcium 8.8 Magnesium 1.4 L Iron TIBC % Saturation Total Bilirubin 0.7 AST 40 H ALT 102 H Alkaline Phosphatase 130 H Total Protein 6.0 L Albumin 3.2 L Vitamin B12 Folate Stl Occult Blood (IFOB) Negative 03/21/24 08:02 WBC RBC Hgb Hct MCV MCH MCHC RDW Plt Count MPV Immature Gran % (Auto) Neut % (Auto) Lymph % (Auto) [place] % (Auto) Eos % (Auto) Baso % (Auto) Lymph # (Auto) [place] # (Auto) Eos # (Auto) Baso # (Auto) Abs Immat Gran (auto) Absolute Neuts (auto) Absolute Nucleated RBC Nucleated RBC % Sodium Potassium Chloride Carbon Dioxide Anion Gap BUN Creatinine Estim Creat Clear Calc Estimated GFR Glucose POC Capillary Glucose 136 H Calcium Magnesium Iron TIBC % Saturation Total Bilirubin AST ALT Alkaline Phosphatase Total Protein Albumin Vitamin B12 Folate Stl Occult Blood (IFOB) Quality VTE Prophylaxis VTE prophylaxis: pharmacologic ordered (on apixaban)
[2024-03-21 12:00] LABS: Glucose Point of Care 239 mg/dl (65-105)
[2024-03-21] MEDS: INSULIN ASPART (*BKC) 100 UNITS/ML SUB-Q (12:30)
[2024-03-21] MEDS: ACETAMINOPHEN 500 MG TABLET 1000 MG PO (14:54)
[2024-03-21] MEDS: CALCIUM CARBONATE (TUMS) 500 MG (200 MG ELEMENTAL) 400 MG PO (16:34)
[2024-03-21 17:06] LABS: Glucose Point of Care 135 mg/dl (65-105)
[2024-03-21 20:10] LABS: Glucose Point of Care 128 mg/dl (65-105)
[2024-03-21] MEDS: ROSUVASTATIN 20 MG TABLET PO (20:42)
[2024-03-22] VITALS (7 sets, daily range): BP systolic 150; BP diastolic 87; PULSE 74–117; RESP 20; TEMP 36.6; O2SAT 97–98
[2024-03-22] MEDS: SUCRALFATE 1 GM TABLET PO ×2 (05:44→12:11)
[2024-03-22] MEDS: LEVOTHYROXINE SODIUM 50 MCG TABLET PO (05:44)
[2024-03-22 05:59] LABS: Basophils Percent Auto 0.6 % (0.2-1.2); Eosinophils Absolute Auto 0.1 K/mm3 (0-0.3); Eosinophils Percent Auto 1.7 % (0-4.4); Hematocrit 30.7 % (37.0-47.0); Hemoglobin 9.1 g/dL (12.0-15.0); Immature Granulocyte Absolute 0.02 K/mm3 (0.00-0.031); Immature Granulocyte Percent A 0.4 % (0-0.5); Lymphocytes Percent Auto 16.9 % (18.3-44.2); Mean Corpuscular HGB Conc 29.6 g/dl (32-36); Mean Corpuscular Hemoglobin 25.4 pg (26-34); Mean Corpuscular Volume 85.8 fl (80-100); Mean Platelet Volume 9.3 fl (7.4-10.4); Monocytes Absolute Auto 0.5 K/mm3 (0.1-0.6); Monocytes Percent Auto 9.6 % (2.6-8.5); Neutrophils Absolute Auto 3.8 K/mm3 (1.3-6.7); Neutrophils Percent Auto 70.8 % (45.5-73.1); Platelet Count Result 351 k/mm3 (150-375); Red Blood Count 3.58 M/mm3 (4.2-5.4); Red Cell Distribution Width 18.2 % (11.5-14.5); White Blood Count 5.3 K/mm3 (4.5-10.0)
[2024-03-22 06:18] LABS: Alanine Aminotransferase 81 U/L (6-35); Albumin Level 3.2 g/dL (3.5-5.1); Alkaline Phosphatase 121 U/L (38-126); Anion Gap 4 mmol/L (4-12); Aspartate Amino Transferase 26 U/L (14-36); Bilirubin,Total 0.8 mg/dL (0.2-1.3); Blood Urea Nitrogen 15 mg/dL (7-17); Calcium 9.1 mg/dL (8.4-10.2); Carbon Dioxide 29 mmol/L (22-30); Chloride 101 mmol/L (98-107); Estimated CRCL calculation 63 ml/min; Estimated Glomerular Filt Rate > 60; Glucose 108 mg/dL (65-110); Magnesium 1.3 mg/dL (1.6-2.3); Potassium 4.2 mmol/L (3.4-5.0); Sodium 134 mmol/L (137-145)
--- NOTE | 2024-03-22 07:38 | PM.IMPN ---
Progress Note: A&P Assessment and Plan (1) Atrial fibrillation with rapid ventricular response: Code(s): I48.91 - Unspecified atrial fibrillation Status: Acute Assessment and Plan: She has chronic atrial fibrillation and is on metoprolol for rate control and apixaban for stroke prophylaxis. Heart rate has improved somewhat with IV metoprolol given in the ED. Continue scheduled metoprolol with telemetry monitoring. HR reviewed and stable (2) CHF exacerbation: Code(s): I50.9 - Heart failure, unspecified Status: Acute Assessment and Plan: She has mild pulmonary edema on chest x-ray and proBNP is higher than what it typically runs. 40 mg PO furosemide for diuresis -switched to her home meds now Continue spironolactone and metoprolol. i/o reviewed, no leg edema on exam, no sob stable- labs, I/O (no accurate output- but4 unmeasured voids), vs reviewed (3) Heart failure with preserved ejection fraction: Code(s): I50.30 - Unspecified diastolic (congestive) heart failure Status: Acute Assessment and Plan: As above. (4) Elevated LFTs: Code(s): R79.89 - Other specified abnormal findings of blood chemistry Status: Acute Assessment and Plan: No GI c/o. Suspect hepatic congestion. (5) Pericardial effusion: Code(s): I31.39 - Other pericardial effusion (noninflammatory) Status: Acute Assessment and Plan: 03/19 echo - Left ventricular systolic function is normal, estimated at 55-60%. Recommendations * Consider low dose DSE as an outpatient or aortic valve calcium score. * Consider ARIADNE to assess mitral valve. (6) Hypomagnesemia: Code(s): E83.42 - Hypomagnesemia Status: Acute Assessment and Plan: repalce MG and monitor (7) Chronic anemia: Code(s): D64.9 - Anemia, unspecified Status: Acute Assessment and Plan: hg 9.8-stable (8) Type 2 diabetes mellitus without complications: Code(s): E11.9 - Type 2 diabetes mellitus without complications Status: Acute Assessment and Plan: hypoglycemia protocol ss AccuCheck ac/hs (9) Obstructive sleep apnea on CPAP: Code(s): G47.33 - Obstructive sleep apnea (adult) (pediatric) Status: Acute Assessment and Plan: continue home cpap Time Spent With Patient Time with patient: 25 - 35 minutes Subjective Date/time seen: 03/22/24 07:38 Interval history: pt is seen and examined. feeling better. Swelling improving. Tolerated diet. No acute events overnight. Working with PT/OT. Care coordination is on board. Anticipate discharge within the next few days Review of Systems Review of Systems: generalized weakness All systems reviewed & are unremarkable except as noted in HPI and below Constitutional: Constitutional: Denies chills Eyes: Eyes: Denies blurry vision Cardiovascular: Cardiovascular: Denies chest pain Respiratory: Respiratory: Denies chest congestion Gastrointestinal: Gastrointestinal: Denies abdominal pain Musculoskeletal: Musculoskeletal: Denies back pain Exam Narrative: General: Well-developed elderly female sitting up in bed in no acute distress. HEENT: PERRL. Sclera anicteric. Moist mucous membranes. Neck: Supple. No significant jugular venous distention. Respiratory: Respirations are nonlabored she is speaking full sentences. Lung sounds are a bit diminished at the bases with faint crackles. Cardiovascular: Irregularly irregular rate and rhythm. Tachycardic. Systolic murmur best heard at the upper sternal border. Gastrointestinal: Abdomen is soft, obese, nontender, and nondistended with positive bowel sounds. Skin: Warm and dry. Generalized pallor. Extremities: No cyanosis or clubbing. 1+ pedal edema up to the knees bilaterally. No palpable knots or cords. Neurological: Alert. Cranial nerves 2-12 are grossly intact. No gross focal deficits to casual conversation. Musculoskeletal: No gross deformity to visual inspection. Psychiatric: Pleasant and cooperative with appropriate mood. Const: General: comfortable Objective Data Vital Signs Vital Signs: Vital Signs - 24 hr 03/21/24 08:00 03/21/24 08:00 03/21/24 08:24 Temperature Pulse Rate 92 93 Respiratory Rate Blood Pressure Pulse Oximetry 97 Oxygen Delivery Room Air Fraction of Inspired Oxygen 03/21/24 11:47 03/21/24 12:00 03/21/24 14:00 Temperature 97.9 F Pulse Rate 92 68 Respiratory Rate 14 Blood Pressure 143/94 H Pulse Oximetry 99 Oxygen Delivery Room Air Fraction of Inspired Oxygen 03/21/24 16:00 03/21/24 16:30 03/21/24 20:00 Temperature Pulse Rate 95 100 Respiratory Rate Blood Pressure Pulse Oximetry Oxygen Delivery Room Air Fraction of Inspired Oxygen 21 03/21/24 20:00 03/21/24 21:43 03/21/24 21:45 Temperature 98.0 F Pulse Rate 93 80 81 Respiratory Rate 18 17 Blood Pressure 131/63 Pulse Oximetry 94 95 Oxygen Delivery CPAP Fraction of Inspired Oxygen 03/22/24 00:00 03/22/24 04:00 03/22/24 05:08 Temperature 97.9 F Pulse Rate 74 91 102 H Respiratory Rate 20 Blood Pressure 150/87 H Pulse Oximetry 98 Oxygen Delivery Fraction of Inspired Oxygen Intake/Output Intake/Output: Intake & Output 03/19/24 03/20/24 03/21/24 03/22/24 23:59 23:59 23:59 23:59 Intake Total 720 1140 1920 200 Output Total 2030 125 100 550 Balance -1310 1015 1820 -350 Meds/Results Medications: Active Medications Generic Name Dose Route Start Last Admin Trade Name Freq PRN Reason Stop Dose Admin Acetaminophen 1,000 mg 03/19/24 12:42 03/21/24 14:54 Acetaminophen 500 Mg Tablet PO 1,000 mg Q6H PRN Administration Pain (Scale Score 1-3) Alprazolam 0.5 mg 03/19/24 12:44 03/21/24 20:42 Alprazolam (*Crx) 0.5 Mg Tablet PO 0.5 mg BID PRN Administration Anxiety Apixaban 5 mg 03/18/24 21:00 03/21/24 20:42 Apixaban 5 Mg Tablet PO 5 mg Q12HR MISHA Administration Calcium Carbonate 400 mg 03/19/24 12:42 03/21/24 16:34 Calcium Carbonate (Tums) 500 Mg (200 Mg Elemental) PO 400 mg Q6H PRN Administration Acid Reflux Dextrose 12.5 gm 03/18/24 12:58 Dextrose 50% 25 Gm/50 Ml Syringe IV PUSH PRN PRN Hypoglycemia Protocol Famotidine 20 mg 03/20/24 09:00 03/21/24 08:23 Famotidine 20 Mg Tablet PO 20 mg DAILY MISHA Administration Fluoxetine HCl 40 mg 03/20/24 09:00 03/21/24 08:23 Fluoxetine Hcl 20 Mg Capsule PO 40 mg DAILY MISHA Administration Fluticasone Propionate 1 spray 03/20/24 09:00 03/21/24 08:23 Fluticasone Propionate 0.05% Na Spr 16 Gm Btl (*Bkc) NASAL 1 spray DAILY MISHA Administration Furosemide 40 mg 03/21/24 09:00 03/21/24 08:31 Furosemide 40 Mg Tablet PO 40 mg DAILY MISHA Administration Glipizide 10 mg 03/19/24 17:00 03/21/24 16:30 Glipizide 5 Mg Tablet PO 10 mg BID MISHA Administration Glucagon 1 mg 03/18/24 12:58 Glucagon For Inj 1 Mg Vial IM PRN PRN Hypoglycemia Protocol Glucose 15 gm 03/18/24 12:58 Glucose Oral Gel 15 Gm Of Glucse In 37.5 Gm Tube PO PRN PRN Hypoglycemia Protocol Guaifenesin 600 mg 03/19/24 12:42 Guaifenesin 12 Hr 600 Mg Tabcr PO BID PRN congestion Dextrose 1,000 mls @ 100 mls/hr 03/18/24 12:58 Dextrose 5% 1,000 Ml IVPB PRN PRN Hypoglycemia Protocol Insulin Aspart 2 - 5 units 03/18/24 17:00 03/21/24 17:16 Insulin Aspart (*Bkc) 100 Units/Ml SUB-Q Not Given TIDWM MISHA Protocol Insulin Aspart 1 - 2 units 03/18/24 21:00 03/21/24 20:46 Insulin Aspart (*Bkc) 100 Units/Ml SUB-Q Not Given HS MISHA Protocol Levothyroxine Sodium 50 mcg 03/20/24 06:30 03/22/24 05:44 Levothyroxine Sodium 50 Mcg Tablet PO 50 mcg DAILY@0630 MISHA Administration Loratadine 10 mg 03/20/24 09:00 03/21/24 08:24 Loratadine 10 Mg Tablet PO 10 mg DAILY MISHA Administration Magnesium Oxide 400 mg 03/20/24 09:10 03/21/24 08:24 Magnesium Oxide 400 Mg Tablet PO 400 mg DAILY MISHA Administration Metformin HCl 500 mg 03/19/24 17:00 03/21/24 16:30 Metformin Hcl 500 Mg Tablet PO 500 mg BIDWM MISHA Administration Metoprolol Succinate 25 mg/ 75 mg 03/20/24 17:00 03/21/24 16:30 Metoprolol Succinate 50 mg PO 75 mg BID MISHA Administration Ondansetron HCl 4 mg 03/19/24 12:42 Ondansetron Hcl Odt 4 Mg Tablet PO Q8H PRN nausea and vomiting Pantoprazole Sodium 40 mg 03/19/24 17:00 03/21/24 16:30 Pantoprazole 40 Mg Tablet PO 40 mg BID MSIHA Administration Polyethylene Glycol 17 gm 03/20/24 09:00 03/21/24 08:24 Polyethylene Glycol 3350 17 Gm Powd.Pack PO 17 gm QAM MISHA Administration Rosuvastatin Calcium 20 mg 03/19/24 21:00 03/21/24 20:42 Rosuvastatin 20 Mg Tablet PO 20 mg HS MISHA Administration Spironolactone 50 mg 03/19/24 10:25 03/21/24 08:24 Spironolactone 50 Mg Tablet PO 50 mg QAM MISHA Administration Sucralfate 1 gm 03/19/24 16:30 03/22/24 05:44 Sucralfate 1 Gm Tablet PO 1 gm ACHS MISHA Administration Vitamin D 2,000 units 03/20/24 09:00 03/21/24 08:23 Cholecalciferol 1,000 Units Tablet PO 2,000 units DAILY MISHA Administration Radiology Results: ITS Impressions Chest X-Ray 03/18/24 09:41 IMPRESSION: 1. Mild opacities in the left lower lung zone which could represent atelectasis or pneumonia. 2. Cardiomegaly and enlargement of the central pulmonary arteries consistent with pulmonary arterial hypertension. Chest CT 03/18/24 10:25 IMPRESSION: 1. Mild pulmonary edema. 2. Small pleural effusions. 3. Small pericardial effusion with small are of calcific pericarditis. Abdomen Ultrasound 03/18/24 13:51 IMPRESSION: 1. Mild right hydroureteronephrosis. Consider CT to assess for obstructing stone or mass. 2. Otherwise unremarkable right upper quadrant ultrasound with common bile duct measuring 8 mm which is for age and postcholecystectomy. Labs Labs: Laboratory Results - last 24 hr 03/21/24 03/21/24 03/21/24 08:02 11:52 16:41 WBC RBC Hgb Hct MCV MCH MCHC RDW Plt Count MPV Immature Gran % (Auto) Neut % (Auto) Lymph % (Auto) [place] % (Auto) Eos % (Auto) Baso % (Auto) Lymph # (Auto) [place] # (Auto) Eos # (Auto) Baso # (Auto) Abs Immat Gran (auto) Absolute Neuts (auto) Absolute Nucleated RBC Nucleated RBC % Sodium Potassium Chloride Carbon Dioxide Anion Gap BUN Creatinine Estim Creat Clear Calc Estimated GFR Glucose POC Capillary Glucose 136 H 239 H 135 H Calcium Magnesium Total Bilirubin AST ALT Alkaline Phosphatase Total Protein Albumin 03/21/24 03/22/24 19:31 05:24 WBC 5.3 RBC 3.58 L Hgb 9.1 L Hct 30.7 L MCV 85.8 MCH 25.4 L MCHC 29.6 L RDW 18.2 H Plt Count 351 MPV 9.3 Immature Gran % (Auto) 0.4 Neut % (Auto) 70.8 Lymph % (Auto) 16.9 L [place] % (Auto) 9.6 H Eos % (Auto) 1.7 Baso % (Auto) 0.6 Lymph # (Auto) 0.90 [place] # (Auto) 0.5 Eos # (Auto) 0.1 Baso # (Auto) 0.0 Abs Immat Gran (auto) 0.02 Absolute Neuts (auto) 3.8 Absolute Nucleated RBC 0.000 Nucleated RBC % 0.0 Sodium 134 L Potassium 4.2 Chloride 101 Carbon Dioxide 29 Anion Gap 4 BUN 15 Creatinine 0.60 L Estim Creat Clear Calc 63 Estimated GFR > 60 Glucose 108 POC Capillary Glucose 128 H Calcium 9.1 Magnesium 1.3 L Total Bilirubin 0.8 AST 26 ALT 81 H Alkaline Phosphatase 121 Total Protein 6.0 L Albumin 3.2 L Quality VTE Prophylaxis VTE prophylaxis: pharmacologic ordered (on apixaban)
[2024-03-22 08:20] LABS: Glucose Point of Care 149 mg/dl (65-105)
[2024-03-22] MEDS: metFORMIN HCL 500 MG TABLET PO (08:28)
[2024-03-22] MEDS: FAMOTIDINE 20 MG TABLET PO (08:28)
[2024-03-22] MEDS: CHOLECALCIFEROL 1,000 UNITS TABLET 2000 UNITS PO (08:28)
[2024-03-22] MEDS: APIXABAN 5 MG TABLET PO (08:28)
[2024-03-22] MEDS: FLUoxetine HCL 20 MG CAPSULE 40 MG PO (08:29)
[2024-03-22] MEDS: glipiZIDE 5 MG TABLET 10 MG PO (08:29)
[2024-03-22] MEDS: LORATADINE 10 MG TABLET PO (08:29)
[2024-03-22] MEDS: FUROSEMIDE 40 MG TABLET PO (08:29)
[2024-03-22] MEDS: MAGNESIUM OXIDE 400 MG TABLET PO (08:29)
[2024-03-22] MEDS: FLUTICASONE PROPIONATE 0.05% NA SPR 16 GM BTL (*BKC) 1 SPRAY NASAL (08:29)
[2024-03-22] MEDS: polyethylene glycoL 3350 17 GM POWD.PACK PO (08:30)
[2024-03-22] MEDS: METOPROLOL SUCCINATE EXT REL 25 MG, METOPROLOL SUCCINATE EXT REL 50 MG 75 MG PO (08:30)
[2024-03-22] MEDS: SPIRONOLACTONE 50 MG TABLET PO (08:30)
[2024-03-22] MEDS: PANTOPRAZOLE 40 MG TABLET PO (08:30)
--- NOTE | 2024-03-22 08:39 | P.DS_ITS ---
DS: Admitting Diagnosis Discharge Date 03/22 Admitting Diagnosis rapid heart rate DS: Discharge Diagnosis Discharge Diagnosis (1) Atrial fibrillation with rapid ventricular response: Code(s): I48.91 - Unspecified atrial fibrillation Status: Acute Assessment and Plan: She has chronic atrial fibrillation and is on metoprolol for rate control and apixaban for stroke prophylaxis. Heart rate has improved somewhat with IV metoprolol given in the ED. Continue scheduled metoprolol with telemetry monitoring. HR reviewed and stable (2) CHF exacerbation: Code(s): I50.9 - Heart failure, unspecified Status: Acute Assessment and Plan: She has mild pulmonary edema on chest x-ray and proBNP is higher than what it typically runs. 40 mg PO furosemide for diuresis -switched to her home meds now Continue spironolactone and metoprolol. i/o reviewed, no leg edema on exam, no sob stable- labs, I/O (no accurate output- but4 unmeasured voids), vs reviewed (3) Heart failure with preserved ejection fraction: Code(s): I50.30 - Unspecified diastolic (congestive) heart failure Status: Acute Assessment and Plan: As above. (4) Elevated LFTs: Code(s): R79.89 - Other specified abnormal findings of blood chemistry Status: Acute Assessment and Plan: No GI c/o. Suspect hepatic congestion. (5) Pericardial effusion: Code(s): I31.39 - Other pericardial effusion (noninflammatory) Status: Acute Assessment and Plan: 03/19 echo - Left ventricular systolic function is normal, estimated at 55-60%. Recommendations * Consider low dose DSE as an outpatient or aortic valve calcium score. * Consider ARIADNE to assess mitral valve. (6) Hypomagnesemia: Code(s): E83.42 - Hypomagnesemia Status: Acute Assessment and Plan: repalce MG and monitor (7) Chronic anemia: Code(s): D64.9 - Anemia, unspecified Status: Acute Assessment and Plan: hg 9.8-stable (8) Type 2 diabetes mellitus without complications: Code(s): E11.9 - Type 2 diabetes mellitus without complications Status: Acute Assessment and Plan: hypoglycemia protocol ss AccuCheck ac/hs (9) Obstructive sleep apnea on CPAP: Code(s): G47.33 - Obstructive sleep apnea (adult) (pediatric) Status: Acute Assessment and Plan: continue home cpap DS: Summary Hospital Course Hospital Course: This is a pleasant 84-year-old female with history of stroke, atrial fibrillation on chronic anticoagulation, severe aortic valve stenosis and moderate mitral valve stenosis on echocardiogram anion January 2024, hypertension, dyslipidemia, heart failure with preserved ejection fraction, pulmonary embolism, obstructive sleep apnea on CPAP, type 2 diabetes mellitus, duodenal ulcer, Zenker's diverticulum, and gastroesophageal reflux disease who presented to the emergency department via EMS from [facility] for evaluation of the rapid heart rate. The patient provides the following history. The patient tells me that she ?has not felt well for quite some time? and most recently she had double pneumonia which has mainly resolved. It is not necessarily unusual for her to have nausea related to postnasal drip and this morning she had an episode of emesis which was essentially mucous. Vital signs were checked at her facility, she was tachycardic, was referred to the ED. She has no complaints of palpitations or racing heart but she does endorse orthopnea and increasing lower extremity edema since furosemide was discontinued about 4 weeks ago; she is not certain as to why the furosemide was discontinued. At the time my evaluation she is feeling in her usual state of health and reports being a bit anxious and is asking for alprazolam. She denies fever, chills, sweats, chest pain, pleuritic pain, palpitations, abdominal pain, current nausea, diarrhea, dysuria, and calf pain. In the ED: She was in rapid atrial fibrillation on arrival with rates in the 120s. The remainder of her vital signs were stable. Labs were significant for a WBC count 5.9, 9.8 sodium 131, glucose 166, magnesium 1 4, AST 70, ALT 187, alkaline phosphatase 145, proBNP 9110. Urinalysis was unremarkable. Viral panel was negative. Chest CT showed mild pulmonary edema, small pleural effusions, and a small pericardial effusion with a small area of pericardial calcification. She was given metoprolol tartrate 5 mg IV, furosemide 20 mg IV, and magnesium sulfate 2 g IV. She is being admitted in this setting for further treatment. Following issues were addressed: # afib with RVR # endocarditis # valvular heart disease cardiology was following: -continue low-dose diuretic, shift to furosemide 40 mg oral today -consider low-dose dobutamine stress echo as an outpatient or aortic valve calcium to assist aortic valve. This can be determined by her established phlebotomy lab assistant, Dr. Mendes -continue anticoagulation for cardioembolic risk reduction -rates much better controlled after increasing the metoprolol 75 b.i.d. this can be shifted to Toprol XL adequate lead does on discharge. -should be maintained on low-dose diuretic at discharge # hypoMG -replaced and daily replacement ordered Status at Discharge Functional status at discharge: uses cane/walker Overall status at discharge: patient is progressing back to baseline Time Spent with Patient Time attestation: Total time spent providing and/or coordinating discharge services: Time spent: Greater than 30 minutes Exam Narrative: General: Well-developed elderly female sitting up in bed in no acute distress. HEENT: PERRL. Sclera anicteric. Moist mucous membranes. Neck: Supple. No significant jugular venous distention. Respiratory: Respirations are nonlabored she is speaking full sentences. Lung sounds are a bit diminished at the bases with faint crackles. Cardiovascular: Irregularly irregular rate and rhythm. Tachycardic. Systolic murmur best heard at the upper sternal border. Gastrointestinal: Abdomen is soft, obese, nontender, and nondistended with positive bowel sounds. Skin: Warm and dry. Generalized pallor. Extremities: No cyanosis or clubbing. 1+ pedal edema up to the knees bilaterally. No palpable knots or cords. Neurological: Alert. Cranial nerves 2-12 are grossly intact. No gross focal deficits to casual conversation. Musculoskeletal: No gross deformity to visual inspection. Psychiatric: Pleasant and cooperative with appropriate mood. Const: General: comfortable Resp: Effort & Inspection: normal respiratory effort Cardio: Heart sounds: Murmur heart sound present Other: Irregularly irregular rhythm Systolic murmur at the upper sternal border. DS: Data Data Completed and Pending Labs on day of discharge: Labs from last 24 hours 03/22/24 03/22/24 03/21/24 07:56 05:24 19:31 WBC 5.3 RBC 3.58 L Hgb 9.1 L Hct 30.7 L MCV 85.8 MCH 25.4 L MCHC 29.6 L RDW 18.2 H Plt Count 351 MPV 9.3 Immature Gran % (Auto) 0.4 Neut % (Auto) 70.8 Lymph % (Auto) 16.9 L [place] % (Auto) 9.6 H Eos % (Auto) 1.7 Baso % (Auto) 0.6 Lymph # (Auto) 0.90 [place] # (Auto) 0.5 Eos # (Auto) 0.1 Baso # (Auto) 0.0 Abs Immat Gran (auto) 0.02 Absolute Neuts (auto) 3.8 Absolute Nucleated RBC 0.000 Nucleated RBC % 0.0 Sodium 134 L Potassium 4.2 Chloride 101 Carbon Dioxide 29 Anion Gap 4 BUN 15 Creatinine 0.60 L Estim Creat Clear Calc 63 Estimated GFR > 60 Glucose 108 POC Capillary Glucose 149 H 128 H Calcium 9.1 Magnesium 1.3 L Total Bilirubin 0.8 AST 26 ALT 81 H Alkaline Phosphatase 121 Total Protein 6.0 L Albumin 3.2 L 03/21/24 03/21/24 16:41 11:52 WBC RBC Hgb Hct MCV MCH MCHC RDW Plt Count MPV Immature Gran % (Auto) Neut % (Auto) Lymph % (Auto) [place] % (Auto) Eos % (Auto) Baso % (Auto) Lymph # (Auto) [place] # (Auto) Eos # (Auto) Baso # (Auto) Abs Immat Gran (auto) Absolute Neuts (auto) Absolute Nucleated RBC Nucleated RBC % Sodium Potassium Chloride Carbon Dioxide Anion Gap BUN Creatinine Estim Creat Clear Calc Estimated GFR Glucose POC Capillary Glucose 135 H 239 H Calcium Magnesium Total Bilirubin AST ALT Alkaline Phosphatase Total Protein Albumin Discharge Plan Discharge Attending physician on discharge: Vonda Narvaez Consulting providers: Frank Singh Discharging Clinician: Araceli Collins Patient Disposition: SNF Activity: july shower Diet: as tolerated and heart healthy Discharge Instructions: You were admitted for rapid heart rate. You received some IV metoprolol and was seen per cardiology. Please continue furosemide 40 mg oral today Continue anticoagulation. -rates much better controlled after increasing the metoprolol 75 b.i.d. this can be shifted to Toprol XL adequate lead does on discharge. Patient Instructions: Apixaban (By mouth), Heart Failure (ED), Safe Use of Anticoagulants (ED) Patient Language: Polish Stand Alone Forms: General Discharge Information Follow-up/Referrals: Chava,Cuba Neal MD [Primary Care Provider] - 1 Week Discharge Medications: New metoprolol succinate 50 mg tablet extended release 24 hr 75 mg PO BID Qty: 60 0RF Continued glipizide 10 mg tablet 10 mg PO BID spironolactone 25 mg tablet 50 mg PO DAILY fluoxetine 20 mg capsule 40 mg PO DAILY cholecalciferol (vitamin D3) 25 mcg (1,000 unit) Capsule 50 mcg PO DAILY Eliquis 5 mg tablet 5 mg PO Q12H rosuvastatin 20 mg tablet 20 mg PO HS acetaminophen 500 mg Tablet 1,000 mg PO Q6H PRN (Reason: Pain (Scale Score 1-3)) metformin 500 mg Tablet 500 mg PO BIDWMEAL calcium carbonate [Tums] 200 mg calcium (500 mg) Tablet,Chewable 400 mg PO Q6H PRN (Reason: Acid Reflux) famotidine 20 mg tablet 20 mg PO DAILY Qty: 30 0RF ondansetron 4 mg tablet,disintegrating 4 mg PO Q8H PRN (Reason: nausea and vomiting) Qty: 10 0RF fluticasone propionate [Allergy Relief (fluticasone)] 50 mcg/actuation spray,suspension 1 spray intranasal DAILY Qty: 16 0RF Rx Instructions: administer into each nostril guaifenesin [Mucinex] 600 mg tablet extended release 12hr 600 mg PO BID PRN (Reason: congestion) Qty: 30 0RF pantoprazole [Protonix] 40 mg Tablet,Delayed Release (Dr/Ec) 40 mg PO BID ondansetron 4 mg Tablet,Disintegrating 4 mg PO TID PRN (Reason: Nausea And Vomiting) polyethylene glycol 3350 [Miralax] 17 gram Powder In Packet 17 g PO QAM Qty: 30 0RF methocarbamol 750 mg Tablet 750 mg PO TID 14 Days Qty: 42 0RF alprazolam 0.5 mg tablet 0.5 mg PO BID loratadine [Claritin] 10 mg tablet 10 mg PO DAILY sucralfate 1 gram tablet 1 g PO ACHS levothyroxine [Synthroid] 25 mcg tablet 50 mcg PO DAILY Qty: 180 1RF Discontinued oxycodone 5 mg tablet 5 mg PO Q6H PRN (Reason: pain) Qty: 14 0RF metoprolol tartrate 50 mg Tablet 75 mg PO Q12HR Date of admission: 03/20/24 14:36 Primary Care Provider: Chava,Cuba Neal Admitting Provider: Donis Lemus Attending physician on admission: Donis Lemus Condition: Stable Quality VTE Prophylaxis VTE prophylaxis: pharmacologic ordered (on apixaban) Hospitalist MIPS Heart Failure (Exclusion) Patient has history of Heart Transplant or Left Ventricular Assistive Device?: No IF YES, STOP HERE Heart Failure (Qualifier) Patient has current or prior documentation of LVEF less than or equal to 40%, or mod/servere depressed LVSF?: No IF NO, STOP HERE
[2024-03-22 11:56] LABS: SARS-CoV-2 RNA PCR Negative (Negative)
[2024-03-22 13:11] LABS: Glucose Point of Care 200 mg/dl (65-105)
--- OUTSIDE RECORDS SUMMARY | 2024-03-25 10:54 | XMS_ITS | Encounter Summary ---
Author Organization [facility] Address [address] [place] [address]. [place], [place] [address] [place] [address] Care Team Providers Care Farm Management Professor Name Role Phone Unavailable Primary Care Provider Unavailabl e Encounter Details Date Type Department Care Team (Late st Contact Info) Description 09/16/2003 Abstract [facility] Emergency Room [address] [place], [place] [address] David Cristina MD Social History Tobacco Use [...]
--- OUTSIDE RECORDS SUMMARY | 2024-03-25 10:54 | XMS_ITS | Encounter Summary ---
Author Organization [facility] Address [address] [place] [address]. [place], [place] [address] [place] [address] Care Team Providers Care Scientist Immunology Name Role Phone Unavailable Primary Care Provider Unavailabl e Encounter Details Date Type Department Care Team (Late st Contact Info) Description 11/19/2004 Abstract [facility] [address] [place] [address] , Generic Conversion, Social History Tobacco Use [...]
--- OUTSIDE RECORDS SUMMARY | 2024-03-25 10:54 | XMS_ITS | Encounter Summary ---
Author Organization [facility] Address [address] [place] [address]. [place], [place] [address] [place] [address] Care Team Providers Care Scarfing Machine Operator Name Role Phone Unavailable Primary Care Provider Unavailabl e Encounter Details Date Type Department Care Team (Late st Contact Info) Description 02/03/2003 Abstract [facility] [address] [place] [address] , Generic Conversion, Social History Tobacco Use [...]
--- OUTSIDE RECORDS SUMMARY | 2024-03-25 10:54 | XMS_ITS | Encounter Summary ---
Author Organization [facility] Address [address] [place] [address]. [place] [address] [place] [address] Care Team Providers Care Emergency Services Director Name Role Phone Ryann Galdamez PA-C Primary Care Provider [phone]- [phone] Cathleen Walker MD Unavailable [phone] Encounter Details Date Type Department Care Team [...] Coronavirus/COVID-19? No / Unsure 05/22/2021 1:58 PM COMPLAINT OPERATOR documented as of this encounter Plan of Treatment Not on file documented as of this encounter Visit Diagnoses Not on filedocumented in this encounter Care Teams Emergency Services Director Relationship Specialty Start Date End Date Ryann Galdamez PA-C [address] [facility] [address] [place] [address] PCP - General PHYSICIAN PERSONAL LOAN SPECIALIST 05/13/21 Cathleen Walker MD [address] [address] INTERNAL MEDICINE 05/13/21 documented as of this encounter
--- OUTSIDE RECORDS SUMMARY | 2024-03-25 10:54 | XMS_ITS | Encounter Summary ---
Author Organization [facility] Address [address] [place] [address]. [place], [place] [address] [place] [address] Care Team Providers Care Company Secretary Name Role Phone Unavailable Primary Care Provider Unavailabl e Encounter Details Date Type Department Care Team (Late st Contact Info) Description 12/10/2001 Abstract [facility] [address] [place] [address] , Generic Conversion, Social History Tobacco Use [...]
--- OUTSIDE RECORDS SUMMARY | 2024-03-25 10:54 | XMS_ITS | Encounter Summary ---
Author Organization [facility] Address [address] [place] [address]. [place], [place] [address] [place] [address] Care Team Providers Care Rn Wound Name Role Phone Unavailable Primary Care Provider Unavailabl e Encounter Details Date Type Department Care Team (Late st Contact Info) Description 06/30/2003 Abstract [facility] [address] [place] [address] , Generic Conversion, Social History Tobacco Use [...]
--- OUTSIDE RECORDS SUMMARY | 2024-03-25 10:54 | XMS_ITS | Encounter Summary ---
Author Organization [facility] Address [address] [place] [address]. [place], [place] [address] [place] [address] Care Team Providers Care Assembler Small Products Name Role Phone Unavailable Primary Care Provider Unavailabl e Encounter Details Date Type Department Care Team (Late st Contact Info) Description 07/27/2003 Abstract [facility] [address] [place] [address] , Generic Conversion, Social History Tobacco Use [...]
--- OUTSIDE RECORDS SUMMARY | 2024-03-25 10:54 | XMS_ITS | Encounter Summary ---
Author Organization [facility] Address [address] [place] [address]. [place], [place] [address] [place] [address] Care Team Providers Care Locomotive Pipe Fitter Name Role Phone Unavailable Primary Care Provider Unavailabl e Encounter Details Date Type Department Care Team (Late st Contact Info) Description 02/05/2003 Abstract [facility] [address] [place] [address] , Generic Conversion, Social History Tobacco Use [...]
--- OUTSIDE RECORDS SUMMARY | 2024-03-25 10:54 | XMS_ITS | Clinical Summary ---
Author Organization [facility] Address [address] [place] [address]. [place], [place] [address] [place] [address] Care Team Providers Care University President Name Role Phone Ryann Galdamez PA-C Primary Care Provider [phone] Cathleen Walker MD Unavailable [phone] Allergies Active Allergy Reactions Criticality Noted Date [...] Status Comments Father (Age 79) in his [facility] Mother (Age 75) in her [facility] Son 1 Alive Son 2 of [...] Comments Blood Pressure 142/98 05/22/2021 8:00 PM QUALITY FACILITATOR Pulse 90 05/22/2021 8:00 PM QUALITY FACILITATOR Temperature 37.1 ??C (98.7 ??F) 05/22/2021 5:45 PM CS T Respiratory Rate 17 05/22/2021 8:00 PM QUALITY FACILITATOR Oxygen Saturation 96% 05/22/2021 8:00 PM QUALITY FACILITATOR Inhaled Oxygen Concentration - - Weight 75.9 kg (167 lb 5.3 oz) 05/22/2021 1:59 P M QUALITY FACILITATOR Height 157.5 cm (5' 2 ) 05/22/2021 1:59 PM QUALITY FACILITATOR Body Mass Index 30.6 05/22/2021 1:59 PM QUALITY FACILITATOR Plan of Treatment Health Maintenance Due Date [...] complete this topic Insurance [employer] Care Teams University President Relationship Specialty Start Date End Date Ryann Galdamez PA-C [address] [facility] [address] [place] [address] PCP - General PHYSICIAN BAILIFF 05/13/21 Cathleen Walker MD [address] [place] [address] INTERNAL MEDICINE 05/13/21
--- OUTSIDE RECORDS SUMMARY | 2024-03-25 10:54 | XMS_ITS | Encounter Summary ---
Author Organization [facility] Address [address] [place] [address]. [place], [place] [address] [place] [address] Care Team Providers Care Gold Tooler Name Role Phone Unavailable Primary Care Provider Unavailabl e Encounter Details Date Type Department Care Team (Late st Contact Info) Description 09/25/2003 Abstract [facility] [address] [place] [address] , Generic Conversion, Social History Tobacco Use [...]
--- OUTSIDE RECORDS SUMMARY | 2024-03-25 10:54 | XMS_ITS | Encounter Summary ---
Author Organization [facility] Address [address] [place] [address]. [place], [place] [id number] [place] [address] Care Team Providers Care Steel Plate Printer Name Role Phone Ryann Galdamez PA-C Primary Care Provider [phone] Cathleen Walker MD Unavailable [phone] Encounter Details Date Type Department Care Team (Late st Contact Info) Description 05/13/2021 Prep for Procedure [place] Pre-Admission Testing [address], [place] [address] Danette Pearce, [facility] [place] [address] Social History Tobacco Use Types Packs/Day Years [...] to have Coronavirus/COVID-19? Yes 05/13/2021 3:44 PM OTR DRIVER documented as of this encounter Plan of Treatment Not on file documented as of this encounter Results * (ABNORMAL) URINALYSIS WI REFLEX TO CULTURE (05/14/2021 11:34 AM OTR DRIVER) COLOR (U) YELLOW 05/14/2021 12:02 PM [facility] TRANSPARENCY CLEAR 05/14/2021 12:02 PM [facility] SPECIFIC GRAVITY (U) 1.010 1.000 - 1.030 05/14/2021 12:02 PM [facility] U PH 6.0 5.0 - 9.0 05/14/2021 12:02 PM [facility] LEUKOCYTES (U) TRACE(A) NEGATIVE 05/14/2021 12:02 PM [facility] NITRITES NEGATIVE NEGATIVE 05/14/2021 12:02 PM [facility] PROTEIN (U) NEGATIVE NEGATIVE 05/14/2021 12:02 PM [facility] URINE GLUCOSE NEGATIVE NEGATIVE 05/14/2021 12:02 PM [facility] KETONES MG/DL (U) NEGATIVE NEGATIVE 05/14/2021 12:02 PM [facility] BILIRUBIN (U) NEGATIVE NEGATIVE 05/14/2021 12:02 PM [facility] BLOOD (U) 2+(A) NEGATIVE 05/14/2021 12:02 PM [facility] WBC/HPF 0-5 0 - 5 /HPF 05/14/2021 12:02 PM [facility] RBC/HPF 0-5 0 - 5 /HPF 05/14/2021 12:02 PM [facility] EPI/HPF RARE /HPF 05/14/2021 12:02 PM [facility] CULTURE & SENSITIVITY INDICATED? CULTURE IS NOT INDICATED 05/14/2021 12:02 PM [facility] URINE SPECIMEN OBTAINED BY CLEAN CATCH PROCEDURE / Unknown 05/14/2021 11:34 AM OTR DRIVER Endy Jara MD URINE ORDERABLES Final Re sult Performing Organization Address [facility]/ZIP Co de Phone Number [facility] [address] [place] [address], [place] [phone] * (ABNORMAL) PTT, PARTIAL THROMBOPLASTIN TIME (05/14/2021 11:34 AM OTR DRIVER) PTT 39.4(H) 27.0 - 36.8 SEC 05/14/2021 11:55 AM OTR DRIVER [facility] 05/14/2021 11:3 4 AM OTR DRIVER Endy Jara MD LABORATORY Final Res ult Performing Organization Address [facility] Co de Phone Number [facility] [address] [place] [address], [place] [phone] * (ABNORMAL) PROTIME/INR, VENOUS (05/14/2021 11:34 AM OTR DRIVER) PROTIME 18.2(H) 9.1 - 12.4 SEC 05/14/2021 11:55 AM OTR DRIVER [facility] INR 1.7 05/14/2021 11:55 AM OTR DRIVER [facility] Comment: Recommend INR ranges for Oral Anticoagulant Therapy: Mechanical Cardiac Values 2.5-3.5 All others indication 2.0-3.0 05/14/2021 11:3 4 AM OTR DRIVER Endy Jara MD LABORATORY Final Res ult Performing Organization Address [facility] Co de Phone Number [facility] [address] [place] [address], [place] [phone] * (ABNORMAL) BASIC METABOLIC PANEL (05/14/2021 11:34 AM [facility] GLUCOSE 114(H) 70 - 99 MG/DL 05/14/2021 11:55 AM [facility] BUN 18 7 - 18 MG/DL 05/14/2021 11:55 AM [facility] CREATININE S/P/B 0.66 0.55 - 1.02 MG/DL 05/14/2021 11:55 AM [facility] SODIUM S/P/B 139 136 - 145 MMOL/L 05/14/2021 11:55 AM [facility] POTASSIUM S/P/B 4.1 3.5 - 5.1 MMOL/L 05/14/2021 11:55 AM [facility] CHLORIDE S/P/B 103 100 - 108 MMOL/L 05/14/2021 11:55 AM [facility] CO2 27.6 21 - 32 MMOL/L 05/14/2021 11:55 AM [facility] CALCIUM S/P/B 9.2 8.5 - 10.1 MG/DL 05/14/2021 11:55 AM [facility] ANION GAP 8.4 5 - 15 MMOL/L 05/14/2021 11:55 AM [facility] BUN CREATININE RATIO 27.3(H) 6 - 26 05/14/2021 11:55 AM [facility] EGFR NON-AFR. AMER. 83(L) >90 ML/MIN/1.7 3 M2 05/14/2021 11:55 AM [facility] EGFR AFR. AMER. >90 >90 ML/MIN/1.7 3 M2 05/14/2021 11:55 AM [facility] Comment: NOTE: eGFR is not calculated for patients <18 years of age. This is an estimated GFR (CKD EPI) and should not be used for calculating drug doses. 05/14/2021 11:3 4 AM OTR DRIVER us Endy Jara MD LABORATORY Final Res ult [facility] [address] [place] [address], * (ABNORMAL) CBC W/DIFF AUTOMATED (05/14/2021 11:34 AM OTR DRIVER) WBC 7.3 4.4 - 11.0 x10'3/uL 05/14/2021 11:45 AM [facility] RBC 3.81(L) 4.50 - 5.10 x10'6/uL 05/14/2021 11:45 AM [facility] HGB 10.3(L) 12.3 - 15.3 G/DL 05/14/2021 11:45 AM [facility] HCT 33.7(L) 35.9 - 44.6 % 05/14/2021 11:45 AM [facility] MCV 88.5 80.0 - 96.0 FL 05/14/2021 11:45 AM [facility] MCH 27.0 25.3 - 30.9 PG 05/14/2021 11:45 AM [facility] MCHC 30.6(L) 31.0 - 34.1 G/DL 05/14/2021 11:45 AM [facility] RDW 16.8(H) 12.4 - 15.1 % 05/14/2021 11:45 AM [facility] PLT 269 151 - 353 x10'3/uL 05/14/2021 11:45 AM [facility] MPV 9.4(L) 9.6 - 12.0 FL 05/14/2021 11:45 AM [facility] RBC MORPHOLOGY NORMAL 05/14/2021 11:45 AM [facility] PLT MORPH. NORMAL 05/14/2021 11:45 AM [facility] WBC MORPHOLOGY NORMAL 05/14/2021 11:45 AM [facility] LYMPHOCYTES % 26.8 15.8 - 45.0 % 05/14/2021 11:45 AM [facility] NEUTROPHILS % 65.1 42.1 - 71.9 % 05/14/2021 11:45 AM [facility] MONOCYTES % 7.4 5.7 - 12.5 % 05/14/2021 11:45 AM [facility] EOSINOPHILS 0.0 0.0 - 5.6 % 05/14/2021 11:45 AM [facility] BASOPHILS 0.4 0.0 - 1.3 % 05/14/2021 11:45 AM [facility] ABS. NEUTROPHILS 4.78 1.40 - 6.00 x10'3/uL 05/14/2021 11:45 AM [facility] IMMATURE GRANS % 0.3 0.0 - 0.5 % 05/14/2021 11:45 AM [facility] ABS. LYMPHOCYTES 1.97 0.80 - 4.70 x10'3/uL 05/14/2021 11:45 AM [facility] 05/14/2021 11:3 4 AM OTR DRIVER us Endy Jara MD LABORATORY Final Res ult [facility] [address] [place] [address], [place] [phone] documented in this encounter Visit Diagnoses Diagnosis Preop examination- Primary Preoperative examination, unspecified Calcium kidney stone Calculus of kidney documented in this encounter Care Teams Steel Plate Printer Relationship Specialty Start Date End Date Ryann Galdamez PA-C [address] [facility] [address] [place] [address] PCP - General PHYSICIAN NEWS COMMENTATOR 05/13/21 Cathleen Walker MD [address] [facility] [address] [place] [address] INTERNAL MEDICINE 05/13/21 documented as of this encounter
--- OUTSIDE RECORDS SUMMARY | 2024-03-25 10:54 | XMS_ITS | Encounter Summary ---
Author Organization [facility] Address [address] [place] [address]. [place], [place] [address] [place] [address] Care Team Providers Care Marketing Recruiter Name Role Phone Ryann Galdamez PA-C Primary Care Provider [phone] Cathleen Walker MD Unavailable [phone] Reason for Visit * Auth/Cert Specialty Diagnoses / Procedures Referred By nIdra muñoz Referred To Contact Diagnoses GROSS CALCIUM KIDNEY STONE Procedures RIGHT EXTRA CORPOREAL SHOCK WAVE LITHOTRIPSY CYSTOSCOPY WITH POSSIBLE RIGHT RETROGRADE PYELOGRAM Referral ID Status Reason Start Date Expiration Date Visits Re quested Visits Authorized [id number] 1 1 Encounter Details Date Type Department Care Team (Late st Contact Info) Description 05/21/2021 8:23 AM SENIOR DENTIST - 05/21/2021 10:00 AM SENIOR DENTIST Surgery [facility] [place] [place] [address] Migel Jara MD [address] [facility] [address] [facility] [place] [address] RIGHT EXTRA CORPOREAL SHOCK WAVE LITHOTRIPSY. FLEXIABLE [...] ontaminated Surgeon Surgeon Role Service Panel Migel Jara MD Primary Urology 1 Case Notes SCHED BY FAX ON 05/10/21 [facility] PHONE ASSESS documented in this encounter Social [...] Coronavirus/COVID-19? No / Unsure 05/21/2021 6:36 AM SENIOR DENTIST documented as of this encounter Last Filed Vital Signs Vital Sign Reading Time Taken Comments Blood Pressure 144/87 05/21/2021 10:00 AM SENIOR DENTIST Pulse 93 05/21/2021 10:00 AM SENIOR DENTIST Temperature 36.1 ??C (97 ??F) 05/21/2021 10:00 AM SENIOR DENTIST Respiratory Rate 18 05/21/2021 10:00 AM SENIOR DENTIST Oxygen Saturation 94% 05/21/2021 10:00 AM SENIOR DENTIST Inhaled Oxygen Concentration - - Weight 71 kg (156 lb 8.4 oz) 05/21/2021 7:00 AM SENIOR DENTIST Height 157.5 cm (5' 2 ) 05/21/2021 7:00 AM SENIOR DENTIST Body Mass Index 28.63 05/21/2021 7:00 AM SENIOR DENTIST documented in this encounter Discharge Instructions * Discharge Instructions* Antoinette Beavers RN - 05/21/2021 10:18 AM SENIOR DENTIST No driving on narcotics call the office [...] your doctor to be sent for analysis. OR DENTIST OR DENTIST * Attachments The following attachments cannot be sent through Care Everywhere. * Extracorporeal Shock Wave Lithotripsy Discharge Instructions ([place]) * Cystoscopy Discharge Instructions ([place]) * General Anesthesia Discharge Instructions ([place]) * Hydrocodone and Acetaminophen, ADULT ([place]) documented in this encounter Medications at Time [...] how to strain urine. ANTOINETTE BEAVERS RN OR DENTIST documented in this encounter H&P Notes * [...] son 05/05/21 from Covid-19 pneumonia. was at [facility] 3 weeks then airlifted to a hospital in [place], [place] for 2 weeks. step son in [...] during recuperation were discussed with the patient/family/personal parts representative. Reasonable alternatives to the patient's proposed procedure/surgery including benefits, risks, and side effects related to the alternatives and the risks related to not receiving the proposed care were also discussed with the patient/family/personal parts representative. Questions were answered and the patient/family/personal parts representative verbalized understanding and desires to proceed. OR DENTIST documented in this encounter Nursing Notes * Anna Morrell RN - 05/21/2021 8:44 AM CST FLEXIBLE CYSTOSCOPE SN#[id number]. OR DENTIST * Anna Morrell RN - 05/21/2021 8:33 AM CST CALLED PATIENTS SON MINISTERIO TO LET HIM KNOW THAT SURGERY HAS STARTED AND EVERYTHING IS GOING WELL ANDTHAT DR. JARA WILL TALK TO HIM WHEN SURGERY IS FINISHED. UPDATED @ 0834. OR DENTIST documented in this encounter OR Notes * [...] table. The stone was easily visualized on tonsorial artist fluoroscopy. The genitalia were prepped with Betadine. SCD boots were on and functional preoperatively for DVT prophylaxis. She received a preoperative dose of intravenous cefazolin. After appropriate timeout appropriate radiological films were displayed in room the 16 Sudanese flexible cystoscope was inserted the urinary bladder [...] * Implants: @ORIMPLANT2@ Disposition: PACU Condition: stable OR DENTIST * OR PreOp - CATY Tsai - 05/14/2021 9:01 AM CST Chart reviewed. Per phone interview, patient states she can slowly climb 2 FOS without SOB or CP. Denies recent changes in activity tolerance in past 6 months. Patient sees family specialist Dr. Walker and had recent cardiac testing [...] prior to surgery date. Immunization records in [facility]. Cardiac clearance per Dr. Walker. [...] There is no significant obstruction of the [place] coronary arteries. There is, however, significant tortuosity of the coronary vessels, suggestive of hypertensive heart disease OR DENTIST OR DENTIST * OR PreOp - Jennifer Isaac RN - 05/13/2021 3:24 PM CST States she can slowly climb 2 flights of stairs without chest pain or SOB, crushed knee in 2019 andwas in rehab for a while, still has issues with knee. States no change in exercise tolerance in thelast 6 months. Metallographer: Dr Cathleen Walker. Had cardiac cath August 2020 at [facility], also and echocardiogram.. Hx a fib. Patient [...] and will have pre-op labs obtained at [facility] in [place] tomorrow. Uses CPAP for AYAD. . 05/14/21 1240: Faxed request for cardiac clearance, last office note, cardiac testing to Dr Quach' office and called Alise and requested same. OR DENTIST OR DENTIST OR DENTIST OR DENTIST OR DENTIST OR DENTIST OR DENTIST documented in this encounter Plan of Treatment Not on file documented as of this encounter Procedures Procedure Name Priority Date/Time Associated Diagnosis Comments POCT GLUCOSE - GALINDO DOCKED DEVICE Routine 05/21/2021 9:19 AM SENIOR DENTIST EXTRACOROPOREAL SHOCK WAVE LITHOTRIPSY UNILATERAL 05/21/2021 8:18 AM SENIOR DENTIST GROSS CALCIUM KIDNEY STONE Case Notes SCHED BY FAX ON 05/10/21 [facility] PHONE ASSESS POCT GLUCOSE - GALINDO DOCKED DEVICE Routine 05/21/2021 7:23 AM SENIOR DENTIST PARTIAL THROMBOPLASTIN TIME,PTT STAT 05/21/2021 7:20 AM SENIOR DENTIST PROTHROMBIN TIME, VENOUS STAT 05/21/2021 7:20 AM SENIOR DENTIST Preop examination Calcium kidney stone documented in this encounter Results * POCT glucose (05/21/2021 9:19 AM SENIOR DENTIST) [facility] GLUCOSE POC 98 70 - 99 mg/dL 05/21/2021 9:21 AM SENIOR DENTIST [facility] 05/21/2021 9:19 AM SENIOR DENTIST Migel Jara MD POCT ORDERABLES - DEVICE Final Result Performing Organization Address [facility]/ZIP Co de Phone Number [facility] [address] [place] [address], [place] [phone] * POCT glucose (05/21/2021 7:23 AM SENIOR DENTIST) GLUCOSE POC 98 70 - 99 mg/dL 05/21/2021 11:24 AM SENIOR DENTIST [facility] 05/21/2021 7:23 AM SENIOR DENTIST Migel Jara MD POCT ORDERABLES - DEVICE Final Result Performing Organization Address [facility] Co de Phone Number [facility] [address] [place] [address], [place] [phone] * PTT, PARTIAL THROMBOPLASTIN TIME (05/21/2021 7:20 AM SENIOR DENTIST) PTT 30.7 25.1 - 36.5 SEC 05/21/2021 8:11 AM SENIOR DENTIST [facility] 05/21/2021 7:20 AM SENIOR DENTIST us Migel Jara MD LABORATORY Final Res ult Performing Organization Address City/[facility]/ZIP Co de Phone Number [facility] [address] [place] [address], [place] [phone] * (ABNORMAL) PROTIME/INR, VENOUS (05/21/2021 7:20 AM SENIOR DENTIST) PROTIME 13.1(H) 10.2 - 12.9 SEC 05/21/2021 7:57 AM SENIOR DENTIST [facility] INR 1.1 05/21/2021 7:57 AM SENIOR DENTIST [facility] Comment: Recommended INR Therapeutic Goals: ??2.0-3.0 Routine Therapy ??2.5-3.5 Mechanical Prosthetic Valves (High Risk) 05/21/2021 7:20 AM SENIOR DENTIST Migel Jara MD LABORATORY Final Res ult [facility] [address] [place] [address], [place] [phone] documented in this encounter Visit Diagnoses Not on filedocumented in this encounter Administered Medications Inactive Administered Medications - up to 3 most recent administrations Medication Order MAR Action Action Date Dose Rate Site famotidine (PEPCID) tablet 20 mg 20 mg, Oral, Once, 1 dose, On Thu05/21/21 at 0815, On admission, Pre-Op Given 05/21/2021 8:10 AM SENIOR DENTIST 20 mg lactated ringers infusion at 10 mL/hr, Intravenous, Continuous, Starting on Thu05/21/21 at 0815, Until Thu05/21/21 at 1351, Infuse at TKO rate, Pre-Op New Bag 05/21/2021 8:10 AM SENIOR DENTIST 10 mL/hr documented in this encounter Active and Recently Administered Medications Times are shown in SENIOR DENTIST. Scheduled Medication Order 05/19/2021 05/20/2021 05/21/2021 ceFAZolin (ANCEF) 2 g in NS 100 mL IVPB (COMPLETED) 2 g, Intravenous, at 200 mL/hr, scalloper to O.R., 1 dose, First dose on [...] ARMANI) documented in this encounter Care Teams Marketing Recruiter Relationship Specialty Start Date End Date Ryann Galdamez PA-C [address] [facility] [address] [place], [place] [id number] PCP - General PHYSICIAN SENIOR SUPPLIER QUALITY ENGINEER 05/13/21 Cathleen Walker MD [address] [facility] [address] [place], [place] [id number] INTERNAL MEDICINE 05/13/21 documented as of this encounter
--- OUTSIDE RECORDS SUMMARY | 2024-03-25 10:54 | XMS_ITS | Encounter Summary ---
Author Organization [facility] Address [address] [place] [address]. [place] [address] [place] [address] Care Team Providers Care Cotton Ball Machine Tender Name Role Phone Ryann Galdamez PA-C Primary Care Provider [phone] Cathleen Walker MD Unavailable [phone] Reason for Visit * Auth/Cert Specialty Diagnoses / Procedures Referred By Indra muñoz Referred To Contact Diagnoses GROSS CALCIUM KIDNEY STONE Procedures RIGHT EXTRA CORPOREAL SHOCK WAVE LITHOTRIPSY CYSTOSCOPY WITH POSSIBLE RIGHT RETROGRADE PYELOGRAM Referral ID Status Reason Start Date Expiration Date Visits Re quested Visits Authorized [id number] 1 1 Encounter Details Date Type Department Care Team (Late st Contact Info) Description 05/21/2021 8:[address] JUDGE Anesthesia Event [facility] [place] [address] Aviva Diamond MD [facility] [facility] [place] [address] Romina Martinez FNP 1 [place] [address] Anesthesia Record Procedure Summary Procedure Name Responsible Anesthesiologist Anesthesia Start Time Anesthesia Stop Time RIGHT EXTRA CORPOREAL SHOCK WAVE LITHOTRIPSY. FLEXIABLE CYSTOSCOPY (Right: Flank) Aviva Diamond MD 05/21/21 0818 05/21/21 0920 Events Date Time Event Comment 05/21/2021 0718 AN WELT CUTTER Prepped [phone] AN Anesthesia Prepped 0818 [...] Date: 05/21/21; Removal Time: 910; Removal Person: WELT CUTTER; Removal Reason: End of Case 05/21/21823 by [...] Coronavirus/COVID-19? No / Unsure 05/22/2021 1:[address] JUDGE documented as of this encounter OR Notes [...] euvolemic No known anesthesia related complications noted. INAL COURT JUDGE * Anesthesia Postprocedure Evaluation - Aviva Diamond [...] PACU. No known anesthesia related complications noted. INAL COURT JUDGE * Anesthesia Preprocedure Evaluation - Aviva Diamond [...] Medical History: Aortic stenosis, moderate Atrial fibrillation ([facility]) Cardiomyopathy ([facility]) 05/2019: Compound fracture Comment: developed DVT when crushed knee, distracted while going down back steps and missed bottom 2 steps. compound fracture Coronary artery disease Depression Diabetes mellitus ([facility]) 05/2019: DVT (deep vein thrombosis) in Comment: developed DVT when crushed knee, distracted while going down back steps and missed bottom 2 steps. compound fracture Feeling grief Comment: several recent deaths: son 05/05/21 from Covid-19 pneumonia. [facility] then airlifted to a hospital in [place], [place] for 2 weeks. step son in 2020, then in September 2020, and a good friend of hers March 2021 Heart failure ([facility]) Hypertension Hypothyroidism AYAD on CPAP 05/2019: PE (pulmonary thromboembolism) ([facility]) Comment: developed DVT when crushed knee, [...] patient of whom consent was obtained. . INAL COURT JUDGE INAL COURT JUDGE documented in this encounter Plan of Treatment Not on file documented as of this encounter Visit Diagnoses Not on filedocumented in this encounter Administered Medications Inactive Administered Medications - up to 3 most recent administrations Medication Order MAR Action Action Date Dose Rate Site ceFAZolin (ANCEF) 2 g in NS 100 mL IVPB 2 g, Intravenous, at 200 mL/hr, sleeve maker to O.R., 1 dose, First dose on Thu05/21/21 at 0700, Pre-OpIndications:Preop examination,Calcium kidney stone Given 05/21/2021 8:[address] JUDGE 2 g dexamethasone (DECADRON) injection Intravenous, PRN, Starting on Thu05/21/21 at 0827, Until Thu05/21/21 at 0921, Anesthesia Intra-Op Given 05/21/2021 8:[address] JUDGE 4 mg ePHEDrine injection Intravenous, PRN, Starting on Thu05/21/21 at 0844, Until Thu05/21/21 at 0921, Anesthesia Intra-Op Given 05/21/2021 8:[address] JUDGE 10 mg Given 05/21/2021 8:[address] JUDGE 5 mg Given 05/21/2021 8:[address] JUDGE 5 mg fentaNYL (SUBLIMAZE) injection Intravenous, PRN, Starting on Thu05/21/21 at 0834, Until Thu05/21/21 at 0921, Anesthesia Intra-Op Given 05/21/2021 8:[address] JUDGE 12.5 mcg Given 05/21/2021 8:[address] JUDGE 12.5 mcg ketorolac (TORADOL) injection Intravenous, PRN, Starting on Thu05/21/21 at 0902, Until Thu05/21/21 at 0921, Anesthesia Intra-Op Given 05/21/2021 9:[address] JUDGE 15 mg lactated ringers infusion Intravenous, Continuous PRN, Starting on Thu05/21/21 at 0718, Until Thu05/21/21 at 0921, Anesthesia Intra-Op New Bag 05/21/2021 9:[address] JUDGE 10 mL/hr New Bag 05/21/2021 7:[address] JUDGE 10 mL/hr lidocaine (PF) (XYLOCAINE) 2 % injection Intravenous, PRN, Starting on Thu05/21/21 at 0823, Until Thu05/21/21 at 0921, Anesthesia Intra-Op Given 05/21/2021 8:[address] JUDGE 50 mg ondansetron (ZOFRAN) injection Intravenous, PRN, Starting on Thu05/21/21 at 0903, Until Thu05/21/21 at 0921, Anesthesia Intra-Op Given 05/21/2021 9:[address] JUDGE 4 mg phenylephrine (LAZARO-SYNEPHRINE) injection Intravenous, PRN, Starting on Thu05/21/21 at 0831, Until Thu05/21/21 at 0921, Anesthesia Intra-Op Given 05/21/2021 8:[address] JUDGE 100 mcg Given 05/21/2021 8:[address] JUDGE 50 mcg Given 05/21/2021 8:[address] JUDGE 50 mcg propofol (DIPRIVAN) IV bolus Intravenous, PRN, Starting on Thu05/21/21 at 0823, Until Thu05/21/21 at 0921, Anesthesia Intra-Op Given 05/21/2021 8:[address] JUDGE 100 mg documented in this encounter Care Teams Cotton Ball Machine Tender Relationship Specialty Start Date End Date Ryann Galdamez PA-C [address] [facility] [address] [place], [place] [phone] PCP - General PHYSICIAN WEIGHT ANALYST 05/13/21 Cathleen Walker MD [address] [facility] [address] [place], [place] [phone] INTERNAL MEDICINE 05/13/21 documented as of this encounter
--- OUTSIDE RECORDS SUMMARY | 2024-03-25 10:54 | XMS_ITS | Encounter Summary ---
Author Organization [facility] Address [address] [place] [address]. [place], [place] [id number] [place] [address] Care Team Providers Care Advice Line Rn Name Role Phone Unavailable Primary Care Provider Unavailabl e Encounter Details Date Type Department Care Team (Late st Contact Info) Description 03/14/2003 Abstract [facility] CONVERSION [address] [place] [address] , Generic Conversion, Social History Tobacco Use [...]
--- OUTSIDE RECORDS SUMMARY | 2024-03-25 10:54 | XMS_ITS | Encounter Summary ---
Author Organization [facility] Address [address] [place] [address]. [place], [place] [id number] [place] [address] Care Team Providers Care Scooping Machine Tender Name Role Phone Unavailable Primary Care Provider Unavailabl e Encounter Details Date Type Department Care Team (Late st Contact Info) Description 02/16/2003 Abstract [facility] CONVERSION [address] [place] [address] , Generic Conversion, Social History Tobacco Use [...]
--- OUTSIDE RECORDS SUMMARY | 2024-03-25 10:54 | XMS_ITS | Encounter Summary ---
Author Organization [facility] Address [address] [place] [address]. [place] [address] [place] [address] Care Team Providers Care Chronic Specialist Name Role Phone Ryann Galdamez PA-C Primary Care Provider [phone]- [phone] Cathleen Walker MD Unavailable [phone] Encounter Details Date Type Department Care Team [...] to have Coronavirus/COVID-19? Yes 05/13/2021 3:44 PM POST DOCTORAL FELLOW documented as of this encounter Plan of Treatment Not on file documented as of this encounter Visit Diagnoses Not on filedocumented in this encounter Care Teams Chronic Specialist Relationship Specialty Start Date End Date Ryann Galdamez PA-C [address] [facility] [address] [place] [address] PCP - General PHYSICIAN CARD TABLE ATTENDANT 05/13/21 Cathleen Walker MD [address] [facility] [address] [place] [address] INTERNAL MEDICINE 05/13/21 documented as of this encounter
--- OUTSIDE RECORDS SUMMARY | 2024-03-25 10:54 | XMS_ITS | Encounter Summary ---
Author Organization [facility] Address [address] [place] [address]. [place], [place] [id number] [place] [address] Care Team Providers Care Green Marketer Name Role Phone Ryann Galdamez PA-C Primary Care Provider [phone] Cathleen Walker MD Unavailable [phone] Encounter Details Date Type Department Care Team (Late st Contact Info) Description 05/14/2021 11:25 AM GARDENER FLORIST - 05/14/2021 11:59 PM GARDENER FLORIST Hospital Encounter [facility] [address] [place] [address] Endy Jara MD [address] [place] [address] [place] [address] Discharge Disposition: Home or Self Care (Routine [...] to have Coronavirus/COVID-19? Yes 05/13/2021 3:44 PM GARDENER FLORIST documented as of this encounter Medications at [...] REFLEX TO CULTURE STAT 05/14/2021 11:34 AM GARDENER FLORIST Preop examination Calcium kidney stone PARTIAL THROMBOPLASTIN TIME,PTT STAT 05/14/2021 11:34 AM GARDENER FLORIST Preop examination Calcium kidney stone PROTHROMBIN TIME, VENOUS STAT 05/14/2021 11:34 AM GARDENER FLORIST Preop examination Calcium kidney stone BASIC METABOLIC PANEL STAT 05/14/2021 11:34 AM GARDENER FLORIST Preop examination Calcium kidney stone CBC W/DIFF AUTOMATED STAT 05/14/2021 11:34 AM GARDENER FLORIST Preop examination Calcium kidney stone documented in this encounter Results * (ABNORMAL) URINALYSIS WI REFLEX TO CULTURE (05/14/2021 11:34 AM GARDENER FLORIST) COLOR (U) YELLOW 05/14/2021 12:02 PM [facility] TRANSPARENCY CLEAR 05/14/2021 12:02 PM [facility] SPECIFIC GRAVITY (U) 1.010 1.000 - 1.030 05/14/2021 12:02 PM [facility] U PH 6.0 5.0 - 9.0 05/14/2021 12:02 PM [facility] LEUKOCYTES (U) TRACE(A) NEGATIVE 05/14/2021 12:02 PM [facility] NITRITES NEGATIVE NEGATIVE 05/14/2021 12:02 PM [facility] PROTEIN (U) NEGATIVE NEGATIVE 05/14/2021 12:02 PM [facility] URINE GLUCOSE NEGATIVE NEGATIVE 05/14/2021 12:02 PM [facility] KETONES MG/DL (U) NEGATIVE NEGATIVE 05/14/2021 12:02 PM GARDENER FLORIST [facility] BILIRUBIN (U) NEGATIVE NEGATIVE 05/14/2021 12:02 PM [facility] BLOOD (U) 2+(A) NEGATIVE 05/14/2021 12:02 PM [facility] WBC/HPF 0-5 0 - 5 /HPF 05/14/2021 12:02 PM [facility] RBC/HPF 0-5 0 - 5 /HPF 05/14/2021 12:02 PM [facility] EPI/HPF RARE /HPF 05/14/2021 12:02 PM [facility] CULTURE & SENSITIVITY INDICATED? CULTURE IS NOT INDICATED 05/14/2021 12:02 PM [facility] URINE SPECIMEN OBTAINED BY CLEAN CATCH PROCEDURE / Unknown 05/14/2021 11:34 AM GARDENER FLORIST Endy Jara MD URINE ORDERABLES Final Re sult Performing Organization Address [facility]/ZIP Co de Phone Number [facility] [address] [place] [address], [place] [phone] * (ABNORMAL) PTT, PARTIAL THROMBOPLASTIN TIME (05/14/2021 11:34 AM GARDENER FLORIST) PTT 39.4(H) 27.0 - 36.8 SEC 05/14/2021 11:55 AM GARDENER FLORIST [facility] 05/14/2021 11:3 4 AM GARDENER FLORIST Endy Jara MD LABORATORY Final Res ult Performing Organization Address City/[facility]/ZIP Co de Phone Number [facility] [address] [place] [address], [place] [phone] * (ABNORMAL) PROTIME/INR, VENOUS (05/14/2021 11:34 AM GARDENER FLORIST) [facility] PROTIME 18.2(H) 9.1 - 12.4 SEC 05/14/2021 11:55 AM [facility] INR 1.7 05/14/2021 11:55 AM [facility] Comment: Recommend INR ranges for Oral Anticoagulant Therapy: Mechanical Cardiac Values 2.5-3.5 All others indication 2.0-3.0 05/14/2021 11:3 4 AM GARDENER FLORIST us Endy Jara MD LABORATORY Final Res ult [facility] [address] [place] [address], * (ABNORMAL) BASIC METABOLIC PANEL (05/14/2021 11:34 AM GARDENER FLORIST) [facility] GLUCOSE 114(H) 70 - 99 MG/DL 05/14/2021 11:55 AM [facility] BUN 18 7 - 18 MG/DL 05/14/2021 11:55 AM [facility] CREATININE S/P/B 0.66 0.55 - 1.02 MG/DL 05/14/2021 11:55 AM [facility] SODIUM S/P/B 139 136 - 145 MMOL/L 05/14/2021 11:55 AM [facility] POTASSIUM S/P/B 4.1 3.5 - 5.1 MMOL/L 05/14/2021 11:55 AM [facility] CHLORIDE S/P/B 103 100 - 108 MMOL/L 05/14/2021 11:55 AM [facility] CO2 27.6 21 - 32 MMOL/L 05/14/2021 11:55 AM [facility] CALCIUM S/P/B 9.2 8.5 - 10.1 MG/DL 05/14/2021 11:55 AM [facility] ANION GAP 8.4 5 - 15 MMOL/L 05/14/2021 11:55 AM [facility] BUN CREATININE RATIO 27.3(H) 6 - 26 05/14/2021 11:55 AM [facility] EGFR NON-AFR. AMER. 83(L) >90 ML/MIN/1.7 3 M2 05/14/2021 11:55 AM [facility] EGFR AFR. AMER. >90 >90 ML/MIN/1.7 3 M2 05/14/2021 11:55 AM [facility] Comment: NOTE: eGFR is not calculated for patients <18 years of age. This is an estimated GFR (CKD EPI) and should not be used for calculating drug doses. 05/14/2021 11:3 4 AM GARDENER FLORIST us Endy Jara MD LABORATORY Final Res ult [facility] [address] [place] [address], * (ABNORMAL) CBC W/DIFF AUTOMATED (05/14/2021 11:34 AM GARDENER FLORIST) WBC 7.3 4.4 - 11.0 x10'3/uL 05/14/2021 11:45 AM [facility] RBC 3.81(L) 4.50 - 5.10 x10'6/uL 05/14/2021 11:45 AM [facility] HGB 10.3(L) 12.3 - 15.3 G/DL 05/14/2021 11:45 AM [facility] HCT 33.7(L) 35.9 - 44.6 % 05/14/2021 11:45 AM [facility] MCV 88.5 80.0 - 96.0 FL 05/14/2021 11:45 AM [facility] MCH 27.0 25.3 - 30.9 PG 05/14/2021 11:45 AM [facility] MCHC 30.6(L) 31.0 - 34.1 G/DL 05/14/2021 11:45 AM [facility] RDW 16.8(H) 12.4 - 15.1 % 05/14/2021 11:45 AM [facility] PLT 269 151 - 353 x10'3/uL 05/14/2021 11:45 AM [facility] MPV 9.4(L) 9.6 - 12.0 FL 05/14/2021 11:45 AM [facility] RBC MORPHOLOGY NORMAL 05/14/2021 11:45 AM [facility] PLT MORPH. NORMAL 05/14/2021 11:45 AM [facility] WBC MORPHOLOGY NORMAL 05/14/2021 11:45 AM [facility] LYMPHOCYTES % 26.8 15.8 - 45.0 % 05/14/2021 11:45 AM [facility] NEUTROPHILS % 65.1 42.1 - 71.9 % 05/14/2021 11:45 AM [facility] MONOCYTES % 7.4 5.7 - 12.5 % 05/14/2021 11:45 AM [facility] EOSINOPHILS 0.0 0.0 - 5.6 % 05/14/2021 11:45 AM [facility] BASOPHILS 0.4 0.0 - 1.3 % 05/14/2021 11:45 AM [facility] ABS. NEUTROPHILS 4.78 1.40 - 6.00 x10'3/uL 05/14/2021 11:45 AM GARDENER FLORIST [facility] IMMATURE GRANS % 0.3 0.0 - 0.5 % 05/14/2021 11:45 AM GARDENER FLORIST [facility] ABS. LYMPHOCYTES 1.97 0.80 - 4.70 x10'3/uL 05/14/2021 11:45 AM GARDENER FLORIST [facility] 05/14/2021 11:3 4 AM GARDENER FLORIST us Endy Jara MD LABORATORY Final Res ult [facility] [address] [place] [address], documented in this encounter Visit Diagnoses Diagnosis Preop examination Preoperative examination, unspecified Calcium kidney stone Calculus of kidney documented in this encounter Care Teams Green Marketer Relationship Specialty Start Date End Date Ryann Galdamez PA-C [address] [facility] [address] [place] [address] PCP - General PHYSICIAN [employer] REGISTRAR 05/13/21 Cathleen Walker MD [address] [facility] [address] [place], [place] [id number] INTERNAL MEDICINE 05/13/21 documented as of this encounter
--- OUTSIDE RECORDS SUMMARY | 2024-03-25 10:54 | XMS_ITS | Encounter Summary ---
Author Organization [facility] Address [address] [place] [address]. [place], [place] [address] [place] [address] Care Team Providers Care Kalsominer Name Role Phone Ryann Galdamez PA-C Primary Care Provider [phone] Cathleen Walker MD Unavailable [phone] Reason for Referral * Imaging (Emergency) - Closed Specialty Diagnoses / Procedures Referred By Indra muñoz Referred To Contact RADIOLOGY Procedures CT ABD+PEL WO CON Sunita Tanner PA [address] [place] [address] Phone: tel: fax: Referral ID Status Reason Start Date Expiration Date Visits Re quested Visits Authorized [id number] Closed 05/22/2021 06/22/2022 1 1 NEL PROCESS SUPERVISOR Reason for Visit * Reason Comments Flank Pain Encounter Details Date Type Department Care Team (Late st Contact Info) Description 05/22/2021 2:20 PM CHANNEL PROCESS SUPERVISOR - 05/22/2021 8:10 PM CHANNEL PROCESS SUPERVISOR Emergency [facility] Emergency Room [place], [place] [id number] Juan Jose Diamond MD [address] [id number] Flank Pain Discharge Disposition: Home or Self [...] Coronavirus/COVID-19? No / Unsure 05/22/2021 1:58 PM CHANNEL PROCESS SUPERVISOR documented as of this encounter Last Filed Vital Signs Vital Sign Reading Time Taken Comments Blood Pressure 142/98 05/22/2021 8:00 PM CHANNEL PROCESS SUPERVISOR Pulse 90 05/22/2021 8:00 PM CHANNEL PROCESS SUPERVISOR Temperature 37.1 ??C (98.7 ??F) 05/22/2021 5:45 PM CS T Respiratory Rate 17 05/22/2021 8:00 PM CHANNEL PROCESS SUPERVISOR Oxygen Saturation 96% 05/22/2021 8:00 PM CHANNEL PROCESS SUPERVISOR Inhaled Oxygen Concentration - - Weight 75.9 kg (167 lb 5.3 oz) 05/22/2021 1:59 P M CHANNEL PROCESS SUPERVISOR Height 157.5 cm (5' 2 ) 05/22/2021 1:59 PM CHANNEL PROCESS SUPERVISOR Body Mass Index 30.6 05/22/2021 1:59 PM CHANNEL PROCESS SUPERVISOR documented in this encounter Discharge Instructions * Attachments The following attachments cannot be sent through Care Everywhere. * Kidney Stones Discharge Instructions (Ivorian) documented in this encounter Medications at Time [...] 05/21/2021 2 HYDROcodone-acetamin ophen 5-325 MG tabletIndications:Ac tre Pain < 7 Day Supply Take 1 [...] son 05/05/21 from Covid-19 pneumonia. was at [facility] 3 weeks then airlifted to a hospital in [place], [place] for 2 weeks. step son in [...] CATCH COLOR (U) COLORLESS TRANSPARENCY CLEAR Specific Epps (U) 1.008 1.001 - 1.030 U PH [...] ABD+PEL WO CON Final Result by User, [id number] (05/22 1637) EXAMINATION: CT Abdomen and Pelvis [...] Disposition: Discharge Juan Jose Diamond MD 05/22/212004 NEL PROCESS SUPERVISOR * Ori Dolan RN - 05/22/2021 2:04 PM CST Ambulatory to triage with account advisor right flank pain that started again today. She reports she just had aprocedure with her urologist to break of a kidney stone on left side yesterday and tolerated procedure well. She reports this morning she reported pain was back. Currently on antibiotics for procedure. VSS. ORI DOLAN RN NEL PROCESS SUPERVISOR * RACHID Pan - 05/22/2021 2:01 PM CST [place], [place] EMERGENCY DEPARTMENT ENCOUNTER Medical Screening Examination 05/22/21 2:04 PM Chief Complaint : Flank Pain HPI : Prema Pearce is a 81-year-old female who presents for right flank pain. Had lithotripsydone yesterday for 5mm stone and didn't have immediate complications. Notes worsening pain, and after speaking with Dr. Coughlin, was advised to present for another CT and evaluation. Took [place] prior to arrival. Pain subsiding. Vital Signs: [...] Jose Diamond MD at 05/22/2021 11:47 PM CHANNEL PROCESS SUPERVISOR NEL PROCESS SUPERVISOR NEL PROCESS SUPERVISOR documented in this encounter Plan of Treatment Not on file documented as of this encounter Procedures Procedure Name Priority Date/Time Associated Diagnosis Comments POCT GLUCOSE - GALINDO DOCKED DEVICE Routine 05/22/2021 5:46 PM CHANNEL PROCESS SUPERVISOR CT ABD+PEL WO CON STAT 05/22/2021 3:5 0 PM CHANNEL PROCESS SUPERVISOR HC URINALYSIS AUTO W/O MICRO STAT 05/22/2021 2:52 PM CHANNEL PROCESS SUPERVISOR COMPREHENSIVE METABOLIC PANEL STAT 05/22/2021 2:52 PM CHANNEL PROCESS SUPERVISOR CBC W/DIFF AUTOMATED STAT 05/22/2021 2:52 PM CHANNEL PROCESS SUPERVISOR LIPASE STAT 05/22/2021 2:52 PM CHANNEL PROCESS SUPERVISOR documented in this encounter Results * POCT glucose (05/22/2021 5:46 PM CHANNEL PROCESS SUPERVISOR) GLUCOSE POC 97 70 - 99 mg/dL 05/22/2021 5:49 PM CHANNEL PROCESS SUPERVISOR [facility] 05/22/2021 5:46 PM CHANNEL PROCESS SUPERVISOR us Attending Physician Emergency MD POCT ORDERABLES - DEVICE Final Result [facility] [address] [place] [address], [place] [phone] * CT ABD+PEL WO CON (05/22/2021 3:50 PM CHANNEL PROCESS SUPERVISOR) Anatomical Region Laterality Modality Abdomen Computed Tomogra phy 05/22/2021 4:21 PM CHANNEL PROCESS SUPERVISOR Impressions 05/22/2021 4:37 PM CHANNEL PROCESS SUPERVISOR IMPRESSION:===== 1. Limited noncontrast assessment. 2. Bilateral [...] 05/22/2021 4:21 PM Narrative 05/22/2021 4:37 PM CHANNEL PROCESS SUPERVISOR EXAMINATION: CT Abdomen and Pelvis without contrast [...] lower thoracic and lumbar spine. Age indeterminate [id number] endplate moderately depressed fracture. Mild L2 anterior [...] MD, 05/22/2021 4:21 PM us Sunita Tanner ND CT Final Result * (ABNORMAL) URINALYSIS (05/22/2021 2:52 PM CHANNEL PROCESS SUPERVISOR) SPECIMEN TYPE URINE CLEAN CATCH 05/22/2021 2:53 PM CHANNEL PROCESS SUPERVISOR [facility] COLOR (U) COLORLESS 05/22/2021 3:53 PM [facility] TRANSPARENCY CLEAR 05/22/2021 3:53 PM CHANNEL PROCESS SUPERVISOR [facility] SPECIFIC GRAVITY (U) 1.008 1.001 - 1.030 05/22/2021 3:53 PM CHANNEL PROCESS SUPERVISOR [facility] U PH 5.0 5.0 - 9.0 05/22/2021 3:53 PM [facility] LEUKOCYTES (U) NEGATIVE NEGATIVE 05/22/2021 3:53 PM [facility] NITRITES NEGATIVE NEGATIVE 05/22/2021 3:53 PM CHANNEL PROCESS SUPERVISOR [facility] PROTEIN (U) NEGATIVE <30 MG/DL 05/22/2021 3:53 PM CHANNEL PROCESS SUPERVISOR [facility] URINE GLUCOSE NORMAL NORMAL MG/DL 05/22/2021 3:53 PM CHANNEL PROCESS SUPERVISOR [facility] KETONES MG/DL (U) NEGATIVE NEGATIVE MG/DL 05/22/2021 3:53 PM CHANNEL PROCESS SUPERVISOR [facility] UROBILINOGEN NORMAL NORMAL MG/DL 05/22/2021 3:53 PM CHANNEL PROCESS SUPERVISOR [facility] BILIRUBIN (U) NEGATIVE NEGATIVE MG/DL 05/22/2021 3:53 PM CHANNEL PROCESS SUPERVISOR [facility] BLOOD (U) 3+(A) NEGATIVE 05/22/2021 3:53 PM CHANNEL PROCESS SUPERVISOR [facility] CULTURE & SENSITIVITY INDICATED? CULTURE IS NOT INDICATED 05/22/2021 3:53 PM CHANNEL PROCESS SUPERVISOR [facility] WBC/HPF 4 <6 /HPF 05/22/2021 3:53 PM CHANNEL PROCESS SUPERVISOR [facility] RBC/HPF 90(H) <6 /HPF 05/22/2021 3:53 PM CHANNEL PROCESS SUPERVISOR [facility] SQUAMOUS EPITHELIALS RARE /HPF 05/22/2021 3:53 PM CHANNEL PROCESS SUPERVISOR [facility] URINE SPECIMEN OBTAINED BY CLEAN CATCH PROCEDURE / Unknown 05/22/2021 2:52 PM CHANNEL PROCESS SUPERVISOR us Sunita RASHID URINE ORDERABLES Final Result [facility] [address] [place] [address], * LIPASE (05/22/2021 2:52 PM CHANNEL PROCESS SUPERVISOR) LIPASE 186 73 - 393 UNITS/L 05/22/2021 3:32 PM CHANNEL PROCESS SUPERVISOR [facility] 05/22/2021 2:52 PM CHANNEL PROCESS SUPERVISOR Sunita RASHID LABORATORY Final Result [facility] [address] [place] [address], * (ABNORMAL) COMPREHENSIVE METABOLIC PANEL (05/22/2021 2:52 PM CHANNEL PROCESS SUPERVISOR) Pathologist [facility] GLUCOSE 127(H) 70 - 99 MG/DL 05/22/2021 3:32 PM CHANNEL PROCESS SUPERVISOR [facility] BUN 21(H) 7 - 18 MG/DL 05/22/2021 3:32 PM CHANNEL PROCESS SUPERVISOR [facility] CREATININE S/P/B 0.64 0.55 - 1.02 MG/DL 05/22/2021 3:32 PM CHANNEL PROCESS SUPERVISOR [facility] SODIUM S/P/B 134(L) 136 - 145 MMOL/L 05/22/2021 3:32 PM CHANNEL PROCESS SUPERVISOR [facility] POTASSIUM S/P/B 3.9 3.5 - 5.1 MMOL/L 05/22/2021 3:32 PM [facility] CHLORIDE S/P/B 103 100 - 108 MMOL/L 05/22/2021 3:32 PM CHANNEL PROCESS SUPERVISOR [facility] CO2 23.8 21 - 32 MMOL/L 05/22/2021 3:32 PM CHANNEL PROCESS SUPERVISOR [facility] CALCIUM S/P/B 9.4 8.5 - 10.1 MG/DL 05/22/2021 3:32 PM [facility] BILIRUBIN TOTAL S/P/B 0.4 0.2 - 1.2 MG/DL 05/22/2021 3:32 PM CHANNEL PROCESS SUPERVISOR [facility] Comment: THIS ASSAY IS NOT RECOMMENDED FOR PATIENTS UNDERGOING TREATMENT WITH ELTROMBOPAG DUE TO THE POTENTIAL FOR FALSELY ELEVATED RESULTS. TOTAL PROTEIN S/P/B 7.3 6.4 - 8.2 G/DL 05/22/2021 3:32 PM [facility] ALBUMIN S/P/B 3.6 3.4 - 5.0 G/DL 05/22/2021 3:32 PM CHANNEL PROCESS SUPERVISOR [facility] AST 22 15 - 37 U/L 05/22/2021 3:32 PM CHANNEL PROCESS SUPERVISOR [facility] ALT 31 14 - 55 U/L 05/22/2021 3:32 PM [facility] ALKALINE PHOSPHATASE S/P/B 118 50 - 136 U/L 05/22/2021 3:32 PM [facility] ANION GAP 7.2 5 - 15 MMOL/L 05/22/2021 3:32 PM [facility] BUN CREATININE RATIO 32.9(H) 6 - 26 05/22/2021 3:32 PM [facility] A/G RATIO 1.0 1.0 - 2.0 RATIO 05/22/2021 3:32 PM [facility] EGFR NON-AFR. AMER. 84(L) >90 ML/MIN/1.7 3 M2 05/22/2021 3:32 PM [facility] EGFR AFR. AMER. >90 >90 ML/MIN/1.7 3 M2 05/22/2021 3:32 PM [facility] Comment: NOTE: eGFR is not calculated for patients <18 years of age. This is an estimated GFR (CKD EPI) and should not be used for calculating drug doses. 05/22/2021 2:52 PM CHANNEL PROCESS SUPERVISOR us Sunita RASHID LABORATORY Final Result [facility] [address] [place] [address], [place] [phone] * (ABNORMAL) CBC W/DIFF AUTOMATED (05/22/2021 2:52 PM CHANNEL PROCESS SUPERVISOR) [facility] WBC 11.2(H) 4.5 - 11.0 x10'3/uL 05/22/2021 3:09 PM [facility] RBC 3.64(L) 4.20 - 5.40 x10'6/uL 05/22/2021 3:09 PM [facility] HGB 9.6(L) 12.0 - 16.0 G/DL 05/22/2021 3:09 PM [facility] HCT 31.2(L) 38.0 - 48.0 % 05/22/2021 3:09 PM [facility] MCV 85.7 81.0 - 99.0 FL 05/22/2021 3:09 PM [facility] MCH 26.4(L) 27.0 - 31.0 PG 05/22/2021 3:09 PM [facility] MCHC 30.8(L) 32.0 - 36.0 G/DL 05/22/2021 3:09 PM [facility] RDW 16.2(H) 11.5 - 14.5 % 05/22/2021 3:09 PM [facility] PLT 317 130 - 400 x10'3/uL 05/22/2021 3:09 PM [facility] MPV 9.5 9.3 - 12.2 FL 05/22/2021 3:09 PM [facility] DIFFERENTIAL TYPE AUTOMATED DIFFERENTIAL 05/22/2021 3:09 PM [facility] NEUTROPHILS % 79.2 % 05/22/2021 3:09 PM CHANNEL PROCESS SUPERVISOR [facility] LYMPHOCYTES % 12.3 % 05/22/2021 3:09 PM CHANNEL PROCESS SUPERVISOR [facility] MONOCYTES % 7.7 % 05/22/2021 3:09 PM [facility] EOSINOPHILS 0.1 % 05/22/2021 3:09 PM CHANNEL PROCESS SUPERVISOR [facility] BASOPHILS 0.3 % 05/22/2021 3:09 PM CHANNEL PROCESS SUPERVISOR [facility] IMMATURE GRANS % 0.4 % 05/23/19 3:09 PM CHANNEL PROCESS SUPERVISOR [facility] ABS. NEUTROPHILS TOTAL 8.87(H) 1.80 - 7.70 x10'3/uL 05/22/2021 3:09 PM CHANNEL PROCESS SUPERVISOR [facility] ABS. LYMPHOCYTES 1.38 1.00 - 4.80 x10'3/uL 05/22/2021 3:09 PM CHANNEL PROCESS SUPERVISOR [facility] ABS. MONOCYTES 0.86 0.24 - 0.86 x10'3/uL 05/22/2021 3:09 PM CHANNEL PROCESS SUPERVISOR [facility] ABS. EOSINOPHILS 0.01(L) 0.04 - 0.36 x10'3/uL 05/22/2021 3:09 PM CHANNEL PROCESS SUPERVISOR [facility] ABS. BASOPHILS 0.03 0.01 - 0.08 x10'3/uL 05/22/2021 3:09 PM CHANNEL PROCESS SUPERVISOR [facility] ABS. IMMATURE GRANULOCYTES 0.05 0.00 - 0.49 x10'3/uL 05/22/2021 3:09 PM [facility] 05/22/2021 2:52 PM CHANNEL PROCESS SUPERVISOR us Sunita RASHID LABORATORY Final Result [facility] [address] [place] [address], documented in this encounter Visit Diagnoses Diagnosis [...] in 24 hours. Given 05/22/2021 6:57 PM CHANNEL PROCESS SUPERVISOR 650 mg morphine injection 4 mg 4 mg, Intravenous, Once, 1 dose, On Thu05/22/21 at 1930 Given 05/22/2021 7:59 PM CHANNEL PROCESS SUPERVISOR 4 mg ondansetron (ZOFRAN) injection 4 mg 4 mg, Intravenous, Once, 1 dose, On Thu05/22/21 at 1415, IV push over 2-5 minutes. Given 05/22/2021 3:10 PM CHANNEL PROCESS SUPERVISOR 4 mg ondansetron (ZOFRAN) injection 4 mg 4 mg, Intravenous, Once, 1 dose, On Thu05/22/21 at 1930, IV push over 2-5 minutes. Given 05/22/2021 7:57 PM CHANNEL PROCESS SUPERVISOR 4 mg sodium chloride 0.9% bolus infusion SOLN 1,000 mL 1,000 mL, Intravenous, Administer over 15 Minutes, Once, 1 dose, On Thu05/22/21 at 1415 New Bag 05/22/2021 3:10 PM CHANNEL PROCESS SUPERVISOR 1,000 mLs 999 mL/hr tamsulosin (FLOMAX) capsule 0.4 mg 0.4 mg, Oral, Once, 1 dose, On Thu05/22/21 at 1930 Given 05/22/2021 7:58 PM CHANNEL PROCESS SUPERVISOR 0.4 mg documented in this encounter Active and Recently Administered Medications Times are shown in CHANNEL PROCESS SUPERVISOR. Scheduled Medication Order 05/20/2021 05/21/2021 05/22/2021 acetaminophen [...] RN) documented in this encounter Care Teams Kalsominer Relationship Specialty Start Date End Date Ryann Galdamez PA-C [address] [facility] [address] [place] [address] PCP - General PHYSICIAN MANAGER SYSTEMS 05/13/21 Cathleen Walker MD [address] [facility] [address] [place] [address] INTERNAL MEDICINE 05/13/21 documented as of this encounter
--- OUTSIDE RECORDS SUMMARY | 2024-03-25 10:54 | XMS_ITS | Encounter Summary ---
Author Organization [facility] Address [address] [place] [address]. [place] [address] [place] [address] Care Team Providers Care Erp Analyst Name Role Phone Ryann Galdamez PA-C Primary Care Provider [phone]- [phone] Cathleen Walker MD Unavailable [phone] Encounter Details Date Type Department Care Team [...] Coronavirus/COVID-19? No / Unsure 05/21/2021 6:36 AM MEDICAL LEADER documented as of this encounter Plan of Treatment Not on file documented as of this encounter Visit Diagnoses Not on filedocumented in this encounter Care Teams Erp Analyst Relationship Specialty Start Date End Date Ryann Galdamez PA-C [address] [facility] [address] [place] [address] PCP - General PHYSICIAN DIRECTOR SPEECH AND HEARING 05/13/21 Cathleen Walker MD [address] [address] INTERNAL MEDICINE 05/13/21 documented as of this encounter
--- OUTSIDE RECORDS SUMMARY | 2024-03-25 10:54 | XMS_ITS | Encounter Summary ---
Author Organization [facility] Address [address] [place] [address]. [place], [place] [address] [place] [address] Care Team Providers Care Cushion Assembler Name Role Phone Ryann Galdamez PA-C Primary Care Provider [phone] Cathleen Walker MD Unavailable [phone] Reason for Visit * Auth/Cert Specialty Diagnoses / Procedures Referred By Indar muñoz Referred To Contact Diagnoses GROSS CALCIUM KIDNEY STONE Procedures RIGHT EXTRA CORPOREAL SHOCK WAVE LITHOTRIPSY CYSTOSCOPY WITH POSSIBLE RIGHT RETROGRADE PYELOGRAM Referral ID Status Reason Start Date Expiration Date Visits Re quested Visits Authorized [id number] 1 1 Encounter Details Date Type Department Care Team (Late st Contact Info) Description 05/21/2021 6:37 AM MANUFACTURING TEAM LEADER - 05/21/2021 11:35 AM [facility] Hospital Encounter [facility] [place] [address] Migel Jara MD 3 [facility] Suite [facility] [place] [address] Discharge Disposition: Home or Self Care (Routine [...] Coronavirus/COVID-19? No / Unsure 05/21/2021 6:36 AM MANUFACTURING TEAM LEADER documented as of this encounter Last Filed Vital Signs Vital Sign Reading Time Taken Comments Blood Pressure 113/87 05/21/2021 11:33 AM MANUFACTURING TEAM LEADER Pulse 91 05/21/2021 11:33 AM MANUFACTURING TEAM LEADER Temperature 36.1 ??C (97 ??F) 05/21/2021 11:33 AM MANUFACTURING TEAM LEADER Respiratory Rate 18 05/21/2021 11:33 AM MANUFACTURING TEAM LEADER Oxygen Saturation 100% 05/21/2021 11:33 AM MANUFACTURING TEAM LEADER Inhaled Oxygen Concentration - - Weight 71 kg (156 lb 8.4 oz) 05/21/2021 7:00 AM MANUFACTURING TEAM LEADER Height 157.5 cm (5' 2 ) 05/21/2021 7:00 AM MANUFACTURING TEAM LEADER Body Mass Index 28.63 05/21/2021 7:00 AM MANUFACTURING TEAM LEADER documented in this encounter Discharge Instructions * Discharge Instructions* Antoinette Beavers RN - 05/21/2021 10:18 AM MANUFACTURING TEAM LEADER No driving on narcotics call the office [...] your doctor to be sent for analysis. FACTURING TEAM LEADER FACTURING TEAM LEADER * Attachments The following attachments cannot be sent through Care Everywhere. * Extracorporeal Shock Wave Lithotripsy Discharge Instructions (Kuwaiti) * Cystoscopy Discharge Instructions ([place]i) * General Anesthesia Discharge Instructions ([place]i) * Hydrocodone and Acetaminophen, ADULT ([place]i) documented in this encounter Medications at Time [...] how to strain urine. ANTOINETTE BEAVERS RN FACTURING TEAM LEADER documented in this encounter H&P Notes * [...] son 05/05/21 from Covid-[address]. [address] [facility] 3 weeks then airlifted to a hospital in [place], [place] for 2 weeks. step son in [...] during recuperation were discussed with the patient/family/personal wholesale representative. Reasonable alternatives to the patient's proposed procedure/surgery including benefits, risks, and side effects related to the alternatives and the risks related to not receiving the proposed care were also discussed with the patient/family/personal wholesale representative. Questions were answered and the patient/family/personal wholesale representative verbalized understanding and desires to proceed. FACTURING TEAM LEADER documented in this encounter Nursing Notes * Anna Morrell RN - 05/21/2021 8:44 AM CST FLEXIBLE CYSTOSCOPE SN#[id number]. FACTURING TEAM LEADER * Anna Morrell RN - 05/21/2021 8:33 AM CST CALLED PATIENTS SON MINISTERIO TO LET HIM KNOW THAT SURGERY HAS STARTED AND EVERYTHING IS GOING WELL ANDTHAT DR. JARA WILL TALK TO HIM WHEN SURGERY IS FINISHED. UPDATED @ 0834. FACTURING TEAM LEADER documented in this encounter OR Notes * [...] table. The stone was easily visualized on parcel post clerk fluoroscopy. The genitalia were prepped with Betadine. SCD boots were on and functional preoperatively for DVT prophylaxis. She received a preoperative dose of intravenous cefazolin. After appropriate timeout appropriate radiological films were displayed in room the 16 Estonian flexible cystoscope was inserted the urinary bladder [...] * Implants: @ORIMPLANT2@ Disposition: PACU Condition: stable FACTURING TEAM LEADER * OR PreOp - CATY Tsai - 05/14/2021 9:01 AM CST Chart reviewed. Per phone interview, patient states she can slowly climb 2 FOS without SOB or CP. Denies recent changes in activity tolerance in past 6 months. Patient sees dramatic art teacher Dr. Walker and had recent cardiac testing [...] prior to surgery date. Immunization records in [facility]. Cardiac clearance per Dr. Walker. Recommended [...] There is no significant obstruction of the [place] coronary arteries. There is, however, significant tortuosity of the coronary vessels, suggestive of hypertensive heart disease FACTURING TEAM LEADER FACTURING TEAM LEADER * OR PreOp - Jennifer Isaac RN - 05/13/2021 3:24 PM CST States she can slowly climb 2 flights of stairs without chest pain or SOB, crushed knee in 2019 andwas in rehab for a while, still has issues with knee. States no change in exercise tolerance in thelast 6 months. Deputy Sheriff/Investigator: Dr Cathleen Walker. Had cardiac cath August 2020 at [facility], also and echocardiogram.. Hx a fib. Patient [...] and will have pre-op labs obtained at [facility] in [place] tomorrow. Uses CPAP for AYAD. . 05/14/21 1240: Faxed request for cardiac clearance, last office note, cardiac testing to Dr Quach' office and called Alise and requested same. FACTURING TEAM LEADER FACTURING TEAM LEADER FACTURING TEAM LEADER FACTURING TEAM LEADER FACTURING TEAM LEADER FACTURING TEAM LEADER FACTURING TEAM LEADER documented in this encounter Plan of Treatment Not on file documented as of this encounter Procedures Procedure Name Priority Date/Time Associated Diagnosis Comments POCT GLUCOSE - GALINDO DOCKED DEVICE Routine 05/21/2021 9:19 AM MANUFACTURING TEAM LEADER EXTRACOROPOREAL SHOCK WAVE LITHOTRIPSY UNILATERAL 05/21/2021 8:18 AM MANUFACTURING TEAM LEADER GROSS CALCIUM KIDNEY STONE Case Notes SCHED BY FAX ON 05/10/21 [facility] PHONE ASSESS POCT GLUCOSE - GALINDO DOCKED DEVICE Routine 05/21/2021 7:23 AM MANUFACTURING TEAM LEADER PARTIAL THROMBOPLASTIN TIME,PTT STAT 05/21/2021 7:20 AM MANUFACTURING TEAM LEADER PROTHROMBIN TIME, VENOUS STAT 05/21/2021 7:20 AM MANUFACTURING TEAM LEADER Preop examination Calcium kidney stone documented in this encounter Results * POCT glucose (05/21/2021 9:19 AM MANUFACTURING TEAM LEADER) GLUCOSE POC 98 70 - 99 mg/dL 05/21/2021 9:21 AM MANUFACTURING TEAM LEADER [facility] 05/21/2021 9:19 AM MANUFACTURING TEAM LEADER Migel Jara MD POCT ORDERABLES - DEVICE Final Result [facility] [address] [place] [address], [place] [phone] * POCT glucose (05/21/2021 7:23 AM MANUFACTURING TEAM LEADER) GLUCOSE POC 98 70 - 99 mg/dL 05/21/2021 11:24 AM MANUFACTURING TEAM LEADER [facility] 05/21/2021 7:23 AM MANUFACTURING TEAM LEADER Migel Jara MD POCT ORDERABLES - DEVICE Final Result Performing Organization Address City/[facility]/ZIP Co de Phone Number [facility] [address] [place] [address], [place] [phone] * PTT, PARTIAL THROMBOPLASTIN TIME (05/21/2021 7:20 AM MANUFACTURING TEAM LEADER) PTT 30.7 25.1 - 36.5 SEC 05/21/2021 8:11 AM MANUFACTURING TEAM LEADER [facility] 05/21/2021 7:20 AM MANUFACTURING TEAM LEADER Migel Jara MD LABORATORY Final Res ult Performing Organization Address City/[facility]/ZIP Co de Phone Number [facility] [address] [place] [address], [place] [phone] * (ABNORMAL) PROTIME/INR, VENOUS (05/21/2021 7:20 AM MANUFACTURING TEAM LEADER) PROTIME 13.1(H) 10.2 - 12.9 SEC 05/21/2021 7:57 AM MANUFACTURING TEAM LEADER [facility] INR 1.1 05/21/2021 7:57 AM MANUFACTURING TEAM LEADER [facility] Comment: Recommended INR Therapeutic Goals: ??2.0-3.0 Routine Therapy ??2.5-3.5 Mechanical Prosthetic Valves (High Risk) 05/21/2021 7:20 AM MANUFACTURING TEAM LEADER Migel Jara MD LABORATORY Final Res ult [facility] [address] [place] [address], [place] [phone] documented in this encounter Visit Diagnoses Diagnosis [...] On admission, Pre-Op Given 05/21/2021 8:10 AM MANUFACTURING TEAM LEADER 20 mg lactated ringers infusion at 10 mL/hr, Intravenous, Continuous, Starting on 05/21/21 at 0815, Until 05/21/21 at 1351, Infuse at TKO rate, Pre-Op New Bag 05/21/2021 8:10 AM MANUFACTURING TEAM LEADER 10 mL/hr documented in this encounter Active and Recently Administered Medications Times are shown in MANUFACTURING TEAM LEADER. Scheduled Medication Order 05/19/2021 05/20/2021 05/21/2021 ceFAZolin (ANCEF) 2 g in NS 100 mL IVPB (COMPLETED) 2 g, Intravenous, at 200 mL/hr, faculty i on call medical assistant to O.R., 1 dose, First dose on [...] RN) documented in this encounter Care Teams Cushion Assembler Relationship Specialty Start Date End Date Ryann Galdamez PA-C [address] [facility] [address] [place] [address] PCP - General PHYSICIAN DEFENCE FORCE SENIOR OFFICER 05/13/21 Cathleen Walker MD [address] [facility] [address] [place] [address] INTERNAL MEDICINE 05/13/21 documented as of this encounter
--- OUTSIDE RECORDS SUMMARY | 2024-03-25 10:54 | XMS_ITS | Encounter Summary ---
Author Organization [facility] Address [address] [place] [address]. [place], [place] [address] [place] [address] Care Team Providers Care Seal Delivery Vehicle Officer Name Role Phone Unavailable Primary Care Provider Unavailabl e Encounter Details Date Type Department Care Team (Late st Contact Info) Description 12/22/2008 Abstract [facility] [address] [place] [address] David Cristina MD Social History Tobacco Use [...]
--- OUTSIDE RECORDS SUMMARY | 2024-03-25 10:54 | XMS_ITS | Encounter Summary ---
Author Organization [facility] Address [address] [place] [address]. [place], [place] [address] [place] [address] Care Team Providers Care Medical Insurance Coder Name Role Phone Unavailable Primary Care Provider Unavailabl e Encounter Details Date Type Department Care Team (Late st Contact Info) Description 06/08/2003 Abstract [facility] CONVERSION [address] [place] [address] , Generic Conversion, Social History Tobacco Use [...]
--- OUTSIDE RECORDS SUMMARY | 2024-03-25 10:55 | XMS_ITS | Encounter Summary ---
Author Organization [facility] Address [address] [place] [address] Care Team Providers Care Wildland Fire Fighter Name Role Phone Chris Mendes MD Unavailable [phone] Cuba Larsen MD Primary Care Provider [phone] Keli Orozco RN Unavailable Unavailable Tami Mcknight RN Unavailable Unavailab le Encounter Details Date Type Department Care Team (Latest Contact Info) Description 03/16/2024 8:20 PM ABSORPTION PLANT OPERATOR - 03/16/2024 11:59 PM ABSORPTION PLANT OPERATOR Hospital Encounter [facility] [address] [place], [place] [id number] Discharge Disposition: Discharge to home or self [...] on file Legal Sex Female 4:20 AM ABSORPTION PLANT OPERATOR Gender Identity Not on file Sexual Orientation Not on file documented as of this encounter Medications at Time of Discharge acetaminophen 500 mg capsuleIndicatio ns:Pain Take 2 capsules (1,000 mg total) by mouth every 6 (six) hours 12/16/2023 ALPRAZolam (XANAX) 0.25 mg tablet 0 01/19/2024 apixaban (Eliquis) 5 mg tablet Take 1 tablet (5 mg total) by mouth 2 (two) times a day 60 tablet 11 08/11/2023 blood glucose diagnostic (glucose blood) stripIndications :Type 2 diabetes mellitus without complication, without long-term current use of insulin ([facility]) ([facility]) One strip daily to check glucose 100 each 1 03/19/2023 blood-glucose meter miscIndications: Type 2 diabetes mellitus without complication, without long-term current use of insulin ([facility]) ([facility]) Use daily or as directed for monitoring of diabetes. 1 each 03/19/2023 CALCIUM CARBONATE ORAL Take 600 mg by mouth 2 (two) times a day carvediloL (COREG) 25 mg tablet Take 1 tablet (25 mg total) by mouth 2 (two) times a day with meals 12/16/2023 cholecalciferol (VITAMIN D-3) 2000 unit tablet Take by mouth FLUoxetine (PROzac) 40 mg capsule Take 1 capsule (40 mg total) by mouth daily 0 01/27/2024 glipiZIDE (GLUCOTROL) 10 mg tablet TAKE 1 TABLET BY MOUTH TWICE A DAY BEFORE BREAKFAST AND LUNCH 180 tablet 1 11/19/2023 lancets miscIndications: Type 2 diabetes mellitus without complication, without long-term current use of insulin ([facility]) ([facility]) 1 each by other route daily 100 each 1 03/19/2023 levothyroxine (SYNTHROID) 50 mcg tablet TAKE 1 TABLET BY MOUTH EVERY DAY 90 tablet 02/05/2024 lidocaine (ASPERCREME) 4 % adhesive patch,medicated Place 1 patch on the skin daily 12/16/2023 melatonin 5 mg tablet Take 1 tablet (5 mg total) by mouth nightly 08/10/2023 metFORMIN (GLUCOPHAGE) 500 mg tablet TAKE 1 TABLET BY MOUTH TWICE A DAY WITH FOOD 180 tablet 1 02/29/2024 methocarbamoL (ROBAXIN) 500 mg tablet Take 1 [...] mouth daily as needed for constipation 12/16/2023 spironolactone (ALDACTONE) 50 mg tablet Take 1 tablet (50 mg total) by mouth daily 90 tablet 3 11/02/2023 documented as of this encounter Discharge Disposition Disposition Code Departure Means Destination Discharge to home or self care documented in this encounter Plan of Treatment Not on file documented as of this encounter Procedures Procedure Name Priority Date/Time Associated Diagnosis Comments TROPONIN T HIGH-SENSITIVITY Routine 03/16/2024 8:20 PM ABSORPTION PLANT OPERATOR EGFR Routine 03/16/2024 8:20 PM ABSORPTION PLANT OPERATOR DIFFERENTIAL AUTO Routine 03/16/2024 8:2 0 PM ABSORPTION PLANT OPERATOR CBC WITH AUTO DIFFERENTIAL Routine 03/16/2024 8:20 PM ABSORPTION PLANT OPERATOR BASIC METABOLIC PANEL Routine 03/16/2024 8:20 PM ABSORPTION PLANT OPERATOR documented in this encounter Results * eGFR (03/16/2024 8:20 PM ABSORPTION PLANT OPERATOR) [facility] eGFR 70 >=60 mL/min/1. 73 m2 Comment: [...] interpretive data was last reviewed 2021. Blood 03/16/2024 8:20 PM ABSORPTION PLANT OPERATOR 03/16/2024 9:15 PM ABSORPTION PLANT OPERATOR us Yves Kem Bailey MD LAB BLOOD ORDERABLES Final R esult Performing Organization Address City/State/ZIP Co pa Phone Number MINDI [address] [address] Department [place] [address] * (ABNORMAL) Troponin T high-sensitivity (03/16/2024 8:20 PM ABSORPTION PLANT OPERATOR) Trop T hs 18(H) <=14 ng/L Comment: Interpretive Data For further hscTnT resources including the diagnostic algorithm and an aid in interpretation, copy and paste this link: https://nrl.testcatalog.org/show/hsTrop Current Interpretive Data last revised 2020. Blood 03/16/2024 8:20 PM ABSORPTION PLANT OPERATOR 03/16/2024 9:10 PM ABSORPTION PLANT OPERATOR us Yves Kem Bailey MD LAB BLOOD ORDERABLES Final R esult MINDI [address] [address] Department [place] [address] * Differential, auto (03/16/2024 8:20 PM ABSORPTION PLANT OPERATOR) Neutrophil abs 5.4 1.5 - 6.5 K/cumm Imm gran abs 0.0 0.0 - 0.1 K/cumm [facility] Lymphocyte abs 1.3 0.8 - 3.3 K/cumm [facility] Monocyte abs 0.8 0.2 - 0.8 K/cumm [facility] Eosinophil abs 0.1 0.0 - 0.5 K/cumm [facility] Basophil abs 0.0 0.0 - 0.1 K/cumm [facility] Neutrophil pct 70.5 % [facility] Comment: Interpretive Data Percent cell count reference ranges are not reported, since discordance with absolute values may lead to misinterpretation of CBC data. Current Interpretive Data was last revised on 2017. Imm gran pct 0.3 % [facility] Comment: Interpretive Data Percent cell count reference ranges are not reported, since discordance with absolute values may lead to misinterpretation of CBC data. Current Interpretive Data was last revised on 2017. Lymphocyte pct 16.7 % [facility] Comment: Interpretive Data Percent cell count reference ranges are not reported, since discordance with absolute values may lead to misinterpretation of CBC data. Current Interpretive Data was last revised on 2017. Monocyte pct 10.8 % [facility] Comment: Interpretive Data Percent cell count reference ranges are not reported, since discordance with absolute values may lead to misinterpretation of CBC data. Current Interpretive Data was last revised on 2017. Eosinophil pct 1.3 % [facility] Comment: Interpretive Data Percent cell count reference ranges are not reported, since discordance with absolute values may lead to misinterpretation of CBC data. Current Interpretive Data was last revised on 2017. Basophil pct 0.4 % [facility] Comment: Interpretive Data Percent cell count reference ranges are not reported, since discordance with absolute values may lead to misinterpretation of CBC data. Current Interpretive Data was last revised on 2017. Blood 03/16/2024 8:20 PM ABSORPTION PLANT OPERATOR 03/16/2024 9:08 PM ABSORPTION PLANT OPERATOR Yvesboogie Bailey MD LAB BLOOD ORDERABLES Final R esult Performing Organization Address City/[facility]/ZIP Co de Phone Number MINDI FITZGERALD [address] [address] [employer] [place] [address] * (ABNORMAL) CBC with auto differential (03/16/2024 8:20 PM ABSORPTION PLANT OPERATOR) WBC 7.6 3.8 - 9.9 K/cumm Hgb 9.9(L) 11.9 - 15.5 g/dL [facility] Hct 34.0(L) 35.6 - 45.5 % [facility] Plt 409(H) 150 - 400 K/cumm [facility] MPV 9.8 9.1 - 12.3 fL [facility] RBC 3.84(L) 3.90 - 5.20 M/cumm [facility] MCV 88.5 81.3 - 96.4 fL [facility] MCH 25.8(L) 27.1 - 33.3 pg [facility] MCHC 29.1(L) 32.3 - 35.7 g/dL [facility] RDW CV 18.1(H) 11.1 - 14.9 % [facility] RDW SD 58.5(H) 35.7 - 48.1 fL [facility] NRBC abs 0.05(H) 0.00 - 0.01 K/cumm [facility] Blood 03/16/2024 8:20 PM ABSORPTION PLANT OPERATOR 03/16/2024 9:08 PM ABSORPTION PLANT OPERATOR Yvesboogie Bailey MD LAB BLOOD ORDERABLES Final R esult Performing Organization Address City/[facility]/ZIP Co de Phone Number MINDI FITZGERALD [address] [address] [place] [address] * (ABNORMAL) Basic metabolic panel (03/16/2024 8:20 PM ABSORPTION PLANT OPERATOR) Sodium 133(L) 135 - 145 mmol/L Potassium, pl 4.3 3.3 - 4.9 mmol/L [facility] Chloride 98 97 - 110 mmol/L [facility] CO2 22 22 - 32 mmol/L [facility] Anion gap 13 2 - 15 mmol/L [facility] BUN 18 6 - 25 mg/dL [facility] Creatinine 0.83 0.60 - 1.10 mg/dL [facility] Glucose 124 70 - 199 mg/dL [facility] Comment: Interpretive Data Fasting glucose >/= 126 [...] interpretive data was last revised 2022. Calcium 9.3 8.5 - 10.3 mg/dL [facility] Blood 03/16/2024 8:20 PM ABSORPTION PLANT OPERATOR 03/16/2024 9:08 PM ABSORPTION PLANT OPERATOR us Yves Kem Bailey MD LAB BLOOD ORDERABLES Final R esult MINDI [address] [address] Department [place] [address] documented in this encounter Visit Diagnoses Not on filedocumented in this encounter Care Teams Wildland Fire Fighter Relationship Specialty Start Date End Date Cuba Larsen MD PCP - General Family Medicine 01/23/22 Chris Mendes MD Referring Physician Cardiology 12/23/21 Keli Orozco, rolfer Failure Coordinator Transplant 04/15/23 Tami Mcknight rolfer Failure Coordinator Cardiology 09/14/23 documented as of this encounter
--- OUTSIDE RECORDS SUMMARY | 2024-03-25 10:55 | XMS_ITS | Encounter Summary ---
Author Organization [facility] Address [address] [place] [address] Care Team Providers Care Instructional Systems Designer Name Role Phone Chris Mendes MD Unavailable [phone] Cuba Larsen MD Primary Care Provider [phone] Keli Orozco RN Unavailable Unavailable Tami Mcknight RN Unavailable Unavailab le Encounter Details Date Type Department Care Team (Late st Contact Info) Description 02/26/2024 Orders Only [facility] Health Information Management [address] [place] [address] Cuba Larsen MD [facility] [address] [address] Social History Tobacco Use Types [...] on file 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
--- OUTSIDE RECORDS SUMMARY | 2024-03-25 10:55 | XMS_ITS | Clinical Summary ---
Author Organization [facility] Address [address] [place] [address] Care Team Providers Care Business Continuity Strategy Director Name Role Phone Chris Mendes MD Unavailable [phone] Cuba Larsen MD Primary Care Provider [phone] Keli Orozco RN Unavailable Unavailable Tami Mcknight [...] complication, without long-term current use of insulin ([facility]) ([facility]) Use daily or as directed for monitoring of diabetes. 1 each 03/19/19 24 Active blood glucose diagnostic (glucose blood) stripIndicatio ns:Type 2 diabetes mellitus without complication, without long-term current use of insulin ([facility]) ([facility]) One strip daily to check glucose 100 each 1 03/19/19 24 Active lancets miscIndication s:Type 2 diabetes mellitus [...] 12/15 Na 129 - Recheck BMP at [facility] in 1 week Acute blood [...] at home - home machine at bedside Obesity (BMI 30-39.9) 12/10/2023 Assessment & Plan (12/10/2023 3:35 PM [...] Hgb stable at 7.7 (7.7), DC to [facility] Treatment Plan: done 12/15 Encounter for medication review 12/09/2023 Assessment & Plan (12/09/2023 6:13 AM CDT): Medications reviewed and updated in admissions tab Home pharmacy [facility] in [facility] DNR (do not resuscitate) 12/09/2023 [...] 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 Patient has follow-up with Urology for continued management of the kidney stones. Assessment & Plan (03/21/2021 12:52 PM OUTDOOR EDUCATION TEACHER): Will arrange for stat CT abdomen pelvis [...] monitor. Assessment & Plan (03/12/2021 7:23 PM OUTDOOR EDUCATION TEACHER): Increase prozac dosing Advised finding hobbies to help take her mind off of world events Assessment & Plan (02/05/2021 5:41 PM OUTDOOR EDUCATION TEACHER): Add prozac every day, continue with prn [...] time Assessment & Plan (03/12/2021 7:23 PM OUTDOOR EDUCATION TEACHER): Continue with prn ambien Assessment & Plan (02/05/2021 5:42 PM OUTDOOR EDUCATION TEACHER): Continue with prn ambien Assessment & Plan [...] mcg Assessment & Plan (03/12/2021 7:22 PM OUTDOOR EDUCATION TEACHER): Will evaluate further with labs Continue meds [...] Type 2 diabetes mellitus without complications ( [facility]) 05/31/2019 Assessment & Plan (12/10/2023 7:01 AM [...] available Assessment & Plan (03/12/2021 7:22 PM OUTDOOR EDUCATION TEACHER): Continue medications same at this time Encouraged heart healthy diet Advised increasing frequency of eating Assessment & Plan (02/05/2021 5:42 PM OUTDOOR EDUCATION TEACHER): Stable, continue meds same at this time [...] report the blood pressure readings to her life scientists. Assessment & Plan (07/15/2021 5:40 PM CDT): Continue with care per life scientists Assessment & Plan (06/17/2021 1:09 PM CDT): [...] Plan (08/21/2020 4:37 PM CDT): Managed by life scientists, continue medication same at this time Assessment & Plan (06/04/2019 7:57 AM CDT): Patient on amlodipine 5 mg, losartan 100 mg, carvedilol 25 mg BID, and HCTZ 25 mg at home - Currently holding home antihypertensives in setting of PE with soft blood pressures, restart as tolerated Presence of left artificial knee joint 0 Longstanding persistent atrial fibrillation (CMS /HCC) 08/18/2017 Assessment & Plan (12/14/2023 9:12 AM CDT): Holding home eliquis and Carvedilol 12/10 A fib controlled HR 100s, restarting Coreg 12.5 mg PO BID (home dose 50 mg PO BID) CTM 12/11 HR 90s a fib rate controlled, continue Coreg 25 mg PO BID 12/13 remains rate controlled 90s, continue Coreg 25 mg PO BID Follow up scheduled: [facility] Cardiology 01/31 at 1:20 Assessment & Plan (08/21/2020 4:37 PM CDT): Managed by life scientists, has pet/ct stress this week. Essential tremor [...] at this time She will continue with [facility] boot Assessment & Plan (06/02/2021 9:54 AM CDT): Patient sustained a distal fibular fracture after falling related to the stroke. She is currently in a boot. She needs to see Orthopedics and has been scheduled at [facility] that would prefer [place]. Will make referral to Ortho in [place] for definitive management of this ankle fracture. Kidney stone 05/21/2021 10/09/2022 Acute left flank pain 03/21/20212021 Assessment & Plan (03/21/2021 12:52 PM OUTDOOR EDUCATION TEACHER): Will arrange for stat CT abdomen pelvis without contrast in stat labs today. Will notify patient of the results as they become available. She was advised to report to the ER in the interim if symptoms are worsening. Acute cystitis with hematuria 03/12/2021 10/21/2021 Assessment & Plan (03/21/2021 12:52 PM OUTDOOR EDUCATION TEACHER): Will arrange for stat CT abdomen pelvis without contrast in stat labs today. Will notify patient of the results as they become available. She was advised to report to the ER in the interim if symptoms are worsening. Assessment & Plan (03/12/2021 7:25 PM OUTDOOR EDUCATION TEACHER): We reviewed poc ua. Will culture urine, will notify her of results as available. Advised to f/u in next week if not improving, sooner if worsening. BMI 29.0-29.9,adult 03/12/2021 06/04/19 22 Weight loss 03/12/2021 08/13/2022 Assessment & Plan (03/12/2021 7:24 PM OUTDOOR EDUCATION TEACHER): Will evaluate further with labs and imaging, [...] 08/13/2022 Assessment & Plan (03/12/2021 7:23 PM OUTDOOR EDUCATION TEACHER): Will evaluate further with labs and imaging, [...] 12:18 PM CDT): Currently being evaluated by life scientists, cardiac cath pending. Will also refer to cotton picker for further evaluation and treatment. BMI 30.0-30.9,adult [...] depression Assessment & Plan (03/12/2021 7:22 PM OUTDOOR EDUCATION TEACHER): Will increase strength of xanax, encouraged using prn Assessment & Plan (02/05/2021 5:41 PM OUTDOOR EDUCATION TEACHER): Add prozac every day, continue with prn [...] chronic systolic CH F (congestive heart failure) ([facility]) 06/08/2019 02/13/2022 Non-ST elevation (NSTEMI) my ocardial infarction ([facility]) 06/08/2019 08/13/2022 Chronic combined systolic (c ongestive) and diastolic (congestive) heart failure 06/05/2019 Hypertensive heart disease w ith heart failure ([facility]) 06/05/2019 09/02/2023 Hypokalemia 06/05/2019 02/13/2022 Assessment & Plan (06/17/2021 1:09 PM CDT): Resume kcl 20meq one tab daily Repeat bmp this week Insomnia, unspecified 06/05/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 06/05/2019 03/03/2023 Major depressive disorder, s eyad episode, unspecified 06/05/2019 06/01/2021 Acute pulmonary embolism wit h acute cor pulmonale ([facility]) 05/31/2019 02/13/2022 Assessment & Plan (06/02/2019 9:36 [...] (05/22/2019): Added automatically from request for surgery [id number] Closed displaced comminuted fracture of shaft of left femur 05/21/2019 06/01/2021 Overview (05/23/2019): Added automatically from request for surgery [id number] BMI 36.0-36.9,adult 10/11/2015 09/05/19 Assessment & Plan (08/21/2020 10:46 AM CDT): Obesity is unchanged. Discussed the patient's BMI. The BMI is above average. BMI management plan is completed. BMI Follow-up includes: nutrition counseling, exercise counseling and education provided. Encounters Date Type Department Care Team Description 03/18/2024 Orders Only [facility] [address] [place] [address] Cuba Larsen MD 03/16/2024 8:20 PM OUTDOOR EDUCATION TEACHER - 03/16/2024 11:59 PM OUTDOOR EDUCATION TEACHER Hospital Encounter [facility] [address] [place] [address] Discharge Disposition: Discharge to home or self care 03/14/2024 4:00 PM OUTDOOR EDUCATION TEACHER Office Visit [facility] Cardiology [address] [facility] [address] [place] [address] [place] [phone] Daryn Alexandra MD PhD Essential hypertension (Primary Dx); Paroxysmal atrial fibrillation (CMS/HCC) (HCC); Longstanding persistent atrial fibrillation (CMS/HCC) (HCC); Type 2 diabetes mellitus without complication, without long-term current use of insulin (CMS/HCC) (HCC); Obesity (BMI 30-39.9) 02/26/2024 Orders Only [facility] [address] [place] [address] Cuba Larsen MD 02/22/2024 Telephone [facility] Family Medicine at [address] [place] [address] Cuba Larsen MD Referral Request 02/18/2024 Orders Only [facility] Cardiology [address] [facility] [address] [place] [address] Magnolia Rico NP 02/15/2024 Orders Only [facility] Cardiology [address] [facility] [address] [place] [address] Catarino Ramirez MD 02/13/2024 Orders Only [facility] [address] [place] [address] Cuba Larsen MD 02/11/2024 Orders Only [facility] [address] [place] [address] Cuba Larsen MD 02/10/2024 Orders Only [facility] [address] [place] [address] Cuba Larsen MD 02/08/2024 ACO Clinical Pharmacist [facility] Accountable Care Organization [address] [place] [address] Goyo RacquelDenita fischer 02/05/2024 Telephone [facility] Cardiology [address] [facility] [address] [place] [address] [place] [address] Chris Mendes MD LAAO IOV 02/03/2024 Orders Only [facility] and [facility] Transplant Heart [address] [facility] [address] [phone] [place] [address] Keli Orozco RN Paroxysmal atrial fibrillation (CMS/HCC) (HCC) (Primary Dx) 02/01/2024 1:20 PM OUTDOOR EDUCATION TEACHER Office Visit [facility] Cardiology [address] [place] [address] 8th [place] [address] [place] [address] Chris Mendes MD Other hyperlipidemia (Primary Dx); Mitral valve prolapse; Essential hypertension 01/19/2024 Telephone [facility] Medical [facility] Family Medicine at [address] [place] [address] Cuba Larsen MD Referral Request 01/18/2024 2:15 PM OUTDOOR EDUCATION TEACHER Office Visit [facility] Orthopaedic Surgery [facility] [facility] [address]th [place] [address] [place] [address] Homer Villalobos MD Closed displaced fracture of left femoral neck (HCC) (Primary Dx); Open intertrochanteric fracture of left femur, sequela 01/18/2024 2:00 PM OUTDOOR EDUCATION TEACHER - 01/18/2024 11:59 PM OUTDOOR EDUCATION TEACHER Hospital Encounter [facility] [address] [place] [address] Closed displaced fracture of left femoral neck (HCC) Discharge Disposition: Discharge to home or self care 01/15/2024 Telephone [facility] Medical [facility] Family Medicine at [address] [place] [address] Cuba Larsen MD Referral Request 01/05/2024 Telephone [facility] Family Medicine at [address] [place] [address] Cuba Larsen MD 1st no show letter sent 01/05/24 01/04/2024 Telephone [facility] Scheduling [address] [place] [address] Gilda Hollingsworth, BEATRIZ Scheduling Appointments 12/25/2023 Telephone [facility] Family Medicine at [address] [place] [address] Cuba Larsen MD Medical Question/Miscellaneous from Last 3 Months Immunizations Name Administration [...] on file Legal Sex Female 4:20 AM OUTDOOR EDUCATION TEACHER Gender Identity Not on file Sexual Orientation Not on file Obstetrics History Last Filed Vital Signs Vital Sign Reading Time Taken Comments Blood Pressure 131/97 03/14/2024 4:04 PM OUTDOOR EDUCATION TEACHER Pulse 118 03/14/2024 4:04 PM OUTDOOR EDUCATION TEACHER Temperature 36.1 ??C (97 ??F) 12/16/2023 5:14 PM CDT Respiratory Rate 18 12/16/2023 6:20 PM CDT Oxygen Saturation 94% 03/14/2024 4:04 PM OUTDOOR EDUCATION TEACHER Inhaled Oxygen Concentration - - Weight 92.1 kg (203 lb) 03/14/2024 4:04 PM OUTDOOR EDUCATION TEACHER Height 157.5 cm (5' 2 ) 03/14/2024 4:04 PM OUTDOOR EDUCATION TEACHER Body Mass Index 37.13 03/14/2024 4:04 PM OUTDOOR EDUCATION TEACHER Plan of Treatment Health Maintenance Due Date Last Done Comments Osteoporosis Screening-Bone Density Scan 1940 Hepatitis B Screening 1958 Zoster Vaccine (1 of 2) 1991 Covid-19 Vaccine (2 5 season) 2023 03/31/2022, 02/19/2021, 05/23/2020, Additional [...] 11/02/2024 11/03/2023, 09/02/2023, 09/02/2023, Additional history exists Fall Risk Assessment 12/15/2024 12/16/2023, 11/03/2023, 09/02/2023, Additional history exists eGFR 03/16/2025 03/16/2024, 03/2023, 12/14/2023, Additional history exists DTaP/Tdap/Td Vaccine (2 - Td or Tdap) 05/20/2029 05/21/2019 Pneumococcal vaccine 65+ Completed 03/03/2023, 10/2021 Medical Devices Implanted Type Area Quarry Worker Device Identifier Shelf Expiration Date Model / Serial / Lot Plate-07/29/2015 Implanted:07/28 (Quantity not on file) Plate Left: Wrist Screw-07/29/2015 Implanted:07/28 (Quantity not on file) Screw Left: Wrist Description:x2 Synthes 4.5mm 8mm 40mm Self Tap Large Hexagonal Socket Cortex Screw Bone 214.840 - [id number] Implanted:Qty: 1 on 12/09/2023 by Homer Villalobos MD at [facility] Screw Left: Femur Synthes 214.840 / / [employer] 6191--010 Simplex P Radiopaque Full Dose Cement Bone Sterile - [id number] Implanted:Qty: 1 on 05/25/2019 by Kaveh Charles MD at [facility] Left: Femur [employer] 01/13/2021 6191-010 / / [id number] [employer] 61 Simplex P Radiopaque Full Dose Cement Bone Sterile - [id number] Implanted:Qty: 1 on 05/25/2019 by Kaveh Charles MD at [facility] Left: Femur [employer] 03/15/2021 6191-010 / / [id number] [employer] [id number] Most Ii H14 Mm Rotating Hinge; Segment; Machine Mold Knee B Inser - [id number] Implanted:Qty: 1 on 05/25/2019 by Kaveh Charles MD at [facility] Left: Knee [employer] [id number] 02/12/2025 [id number] / / [id number] [employer] 11-0497-346-96 Xt Knee B Insert Tibial Polyethylene - [id number] Implanted:Qty: 1 on 05/25/2019 by Kaveh Charles MD at [facility] Left: Femur [employer] [id number] 04/15/2027 01-0069-580-9 6 / / [id number] Cmpnt Fem B Knee Left Albert Strl Segmental System - [id number] Implanted:Qty: 1 on 05/25/2019 by Kaveh Charles MD at [facility] Left: Femoral [employer] [id number] 04/15/2027 [id number] / / [id number] [employer]/O rtho 379999 Prep-Im Plug [place] Sponge Suction Hip Kit Thr Latex Free - [id number] Implanted:Qty: 1 on 05/25/2019 by Kaveh Charles MD at [facility] Left: Femur [employer]/ Ortho [id number] / / [employer] 6191--010 Simplex P Radiopaque Full Dose Cement Bone Sterile - [id number] Implanted:Qty: 1 on 05/25/2019 by Kaveh Charles MD at [facility] Left: Femur [employer] 01/13/2021 6191-1-010 / / [id number] [employer] 6191--010 Simplex P Radiopaque Full Dose Cement Bone Sterile - [id number] Implanted:Qty: 1 on 05/25/2019 by Kaveh Charles MD at [facility] Left: Femur [employer] 12/13/2020 6191--010 / / [id number] [employer] [id number] Nexgen 77a20cg Rotating Hinge Knee 2 Plate Tibial Zimaloy Pmma - [id number] Implanted:Qty: 1 on 05/25/2019 by Kaveh Charles MD at [facility] Left: Tibia [employer] [id number] 01/13/2023 [id number] / / [id number] [employer] [id number] 35mm Collar Knee Component Segmental Trabecular Metal 9-16mm Stem - [id number] Implanted:Qty: 1 on 05/25/2019 by Kaveh Charles MD at [facility] Left: Tibia [employer] [id number] 02/12/2023 [id number] / / [id number] [employer] [id number] Nexgen 13mm 130mm Cemented Segmental Knee Femur Straight Flute - [id number] Implanted:Qty: 1 on 05/25/2019 by Kaveh Charles MD at [facility] Left: Tibia [employer] [id number] 09/12/2028 [id number] / / [id number] [facility]ly [facility], [facility]–1983[employer] [facility] Angio-Seal Vip Bondek-Plus 8fr .038in 70cm Hemostatic Latex Free 079017 - [id number] Implanted:Qty: 1 on 08/07/2023 [facility] 04/07/2024 [id number] / / [id number] Synthes Dhs/Dcp 174mm 38mm 10 Hole Hip Condyle 130d Standard Barrel Plate 281.010s - [id number] Implanted:Qty: 1 on 12/09/2023 by Homer Villalobos MD at [facility] Left: Femur [employer] [id number] 04/15/2029 281.010S / / [id number] Synthes 4.5mm 8mm 38mm Self Tap Large Hexagonal Socket Cortex Screw Bone 214.838 - [id number] Implanted:Qty: 1 on 12/09/2023 by Homer Villalobos MD at [facility] Left: Femur Synthes 214.838 / / Synthes Dhs Dcs 36mm Compression Hip Condylar Screw Bone Stainless Steel 280.990 - [id number] Implanted:Qty: 1 on 12/09/2023 by Homer Villalobos MD at [facility] Left: Femur Synthes 280.990 / / Synthes 1.7mm 750mm Crimp Cerclage [employer] Orthopedic Stainless Steel 298.801.01s - [id number] Implanted:Qty: 1 on 12/09/2023 by Homer Villalobos MD at [facility] Left: Femur [employer] [id number] 09/12/2028 298.801.01S / / [id number] Synthes Dhs Dcs 12mm 8mm 2.7mm 90mm 22mm Lag Cannulated Hip Condylar 280.290 - [id number] Implanted:Qty: 1 on 12/09/2023 by Homer Villalobos MD at [facility] Left: Femur Synthes 280.290 / / Procedures Procedure Name Priority Date/Time Associated Diagnosis Comments SCAN - RADIOLOGY/IMAGING 03/18/2024 EGFR Routine 03/16/2024 8:20 PM OUTDOOR EDUCATION TEACHER TROPONIN T HIGH-SENSITIVITY Routine 03/16/2024 8:20 PM OUTDOOR EDUCATION TEACHER DIFFERENTIAL AUTO Routine 03/16/2024 8:2 0 PM OUTDOOR EDUCATION TEACHER CBC WITH AUTO DIFFERENTIAL Routine 03/16/2024 8:20 PM OUTDOOR EDUCATION TEACHER BASIC METABOLIC PANEL Routine 03/16/2024 8:20 PM OUTDOOR EDUCATION TEACHER SCAN - RADIOLOGY/IMAGING 02/26/2024 CARDIOLOGY DOCUMENT SCAN Routine 02/17/2024 2:22 PM OUTDOOR EDUCATION TEACHER CARDIOLOGY DOCUMENT SCAN Routine 02/15/2024 2:18 PM OUTDOOR EDUCATION TEACHER CARDIOLOGY DOCUMENT SCAN Routine 02/14/2024 6:35 PM OUTDOOR EDUCATION TEACHER SCAN - RADIOLOGY/IMAGING 02/13/2024 CARDIOLOGY DOCUMENT SCAN 02/12/2024 SCAN - RADIOLOGY/IMAGING 02/11/2024 SCAN - RADIOLOGY/IMAGING 02/10/2024 XR FEMUR LEFT 2 OR MORE VIEWS Schedule Routine, Read Routine (OP Routine) 01/18/2024 2:34 PM OUTDOOR EDUCATION TEACHER Closed displaced fracture of left femoral neck (HCC) HEMOGLOBIN A1C Routine 12/09/2023 10:24 PM CDT LIPID PANEL STAT 08/07/2023 2:35 PM CDT ALBUMIN CREATININE RATIO, URINE Routine 02/23/2023 11:01 AM OUTDOOR EDUCATION TEACHER Type 2 diabetes mellitus without complication, without long-term current use of insulin ([facility]/HCC) (HCC) HM DIABETES EYE EXAM Routine 12/10/2022 from Last 3 Months or Most Recently Relevant to Health Maintenance Results * SCAN - RADIOLOGY/IMAGING (03/18/2024) Anatomical Region Laterality Modality Other us Cuba Larsen MD Edited Result - Final * (ABNORMAL) Troponin T high-sensitivity (03/16/2024 8:20 PM OUTDOOR EDUCATION TEACHER) Trop T hs 18(H) <=14 ng/L Comment: Interpretive Data For further hscTnT resources including the diagnostic algorithm and an aid in interpretation, copy and paste this link: [email or web address].testcatalog.org/[email or web address] Current Interpretive Data last revised 2020. Blood 03/16/2024 8:20 PM OUTDOOR EDUCATION TEACHER 03/16/2024 9:10 PM OUTDOOR EDUCATION TEACHER us Yves Kem Bailey MD LAB BLOOD ORDERABLES Final R esult [facility] [address] [place] [address] * eGFR (03/16/2024 8:20 PM OUTDOOR EDUCATION TEACHER) eGFR 70 >=60 mL/min/1. 73 m2 Comment: [...] last reviewed 2021. Blood 03/16/2024 8:20 PM OUTDOOR EDUCATION TEACHER 03/16/2024 9:15 PM OUTDOOR EDUCATION TEACHER us Yves Kem Bailey MD LAB BLOOD ORDERABLES Final R esult [facility] [address] Department [place] [address] * Differential, auto (03/16/2024 8:20 PM OUTDOOR EDUCATION TEACHER) Neutrophil abs 5.4 1.5 - 6.5 K/cumm Imm gran abs 0.0 0.0 - 0.1 K/cumm [facility] Lymphocyte abs 1.3 0.8 - 3.3 K/cumm [facility] Monocyte abs 0.8 0.2 - 0.8 K/cumm [facility] Eosinophil abs 0.1 0.0 - 0.5 K/cumm [facility] Basophil abs 0.0 0.0 - 0.1 K/cumm [facility] Neutrophil pct 70.5 % [facility] Comment: Interpretive Data Percent cell count reference ranges are not reported, since discordance with absolute values may lead to misinterpretation of CBC data. Current Interpretive Data was last revised on 2017. Imm gran pct 0.3 % [facility] Comment: Interpretive Data Percent cell count reference ranges are not reported, since discordance with absolute values may lead to misinterpretation of CBC data. Current Interpretive Data was last revised on 2017. Lymphocyte pct 16.7 % [facility] Comment: Interpretive Data Percent cell count reference ranges are not reported, since discordance with absolute values may lead to misinterpretation of CBC data. Current Interpretive Data was last revised on 2017. Monocyte pct 10.8 % [facility] Comment: Interpretive Data Percent cell count reference ranges are not reported, since discordance with absolute values may lead to misinterpretation of CBC data. Current Interpretive Data was last revised on 2017. Eosinophil pct 1.3 % [facility] Comment: Interpretive Data Percent cell count [...] revised on 2017. Blood 03/16/2024 8:20 PM OUTDOOR EDUCATION TEACHER 03/16/2024 9:08 PM OUTDOOR EDUCATION TEACHER Yvesboogie Bailey MD LAB BLOOD ORDERABLES Final R esult Performing Organization Address City/[facility]/ZIP Co de Phone Number MINDI FITZGERALD [address] [place] [place] [address] * (ABNORMAL) CBC with auto differential (03/16/2024 8:20 PM OUTDOOR EDUCATION TEACHER) WBC 7.6 3.8 - 9.9 K/cumm Hgb 9.9(L) 11.9 - 15.5 g/dL [facility] Hct 34.0(L) 35.6 - 45.5 % [facility] Plt 409(H) 150 - 400 K/cumm [facility] MPV 9.8 9.1 - 12.3 fL [facility] RBC 3.84(L) 3.90 - 5.20 M/cumm [facility] CH MCV 88.5 81.3 - 96.4 fL [facility] CH MCH 25.8(L) 27.1 - 33.3 pg [facility] MCHC 29.1(L) 32.3 - 35.7 g/dL [facility] CH RDW CV 18.1(H) 11.1 - 14.9 % [facility] CH RDW SD 58.5(H) 35.7 - 48.[address] NRBC abs 0.05(H) 0.00 - 0.01 K/cumm [facility] CH Blood 03/16/2024 8:20 PM OUTDOOR EDUCATION TEACHER 03/16/2024 9:08 PM OUTDOOR EDUCATION TEACHER Yvesboogie Bailey MD LAB BLOOD ORDERABLES Final R esult Performing Organization Address City/[facility]/ZIP Co de Phone Number MINDI FITZGERALD [address] Department [place] [address] * (ABNORMAL) Basic metabolic panel (03/16/2024 8:20 PM OUTDOOR EDUCATION TEACHER) Sodium 133(L) 135 - 145 mmol/L Potassium, pl 4.3 3.3 - 4.9 mmol/L [facility] CH Chloride 98 97 - 110 mmol/L [facility] [...] 2022. Calcium 9.3 8.5 - 10.3 mg/dL [facility] Blood 03/16/2024 8:20 PM OUTDOOR EDUCATION TEACHER 03/16/2024 9:08 PM OUTDOOR EDUCATION TEACHER us Yves Bailey MD LAB BLOOD ORDERABLES Final R esult [facility] [address] [place] [address] * SCAN - RADIOLOGY/IMAGING (02/26/2024) Anatomical Region Laterality Modality Other us Cuba Larsen MD Edited Result - Final * Cardiology Document Scan (02/17/2024 2:22 PM OUTDOOR EDUCATION TEACHER) Anatomical Region Laterality Modality Other us Abhijit Devlin MD CV CARDIAC SERVICES [facility] Final Result * Cardiology Document Scan (02/15/2024 2:18 PM OUTDOOR EDUCATION TEACHER) Anatomical Region Laterality Modality Other Magnolia Rico NP CV CARDIAC SERVICES PROCEDUR ES Final Result * Cardiology Document Scan (02/14/2024 6:35 PM OUTDOOR EDUCATION TEACHER) Anatomical Region Laterality Modality Other Catarino Ramirez MD CV CARDIAC SERVICES PROCEDU RES Final Result * SCAN - RADIOLOGY/IMAGING (02/13/2024) Anatomical Region Laterality Modality Other Cuba Larsen MD Edited Result - Final * Cardiology Document Scan (02/12/2024) Anatomical Region Laterality Modality Other Result [facility] Cuba Larsen MD CV CARDIAC SERVICES PROCEDURE S Final Result * SCAN - RADIOLOGY/IMAGING (02/11/2024) Anatomical Region Laterality Modality Other Result [facility] Cuba Larsen MD Edited Result - Final * SCAN - RADIOLOGY/IMAGING (02/10/2024) Anatomical Region Laterality Modality Other Result [facility] Cuba Larsen MD Edited Result - Final * XR Femur Left 2 or More Views (01/18/2024 2:34 PM OUTDOOR EDUCATION TEACHER) Anatomical Region Laterality Modality Lower Extremities, Thigh, Femur Left Computed Radiography 01/18/2024 2:47 PM OUTDOOR EDUCATION TEACHER Impressions 01/18/2024 2:47 PM OUTDOOR EDUCATION TEACHER 1. ??Healing internally fixated left femur intertrochanteric fracture. Electronically signed by: Rayray Matthews MD Narrative 01/18/2024 2:47 PM OUTDOOR EDUCATION TEACHER EXAMINATION: XR FEMUR LEFT 2 OR [...] XR PROCEDURE S Final Result * (ABNORMAL) Hemoglobin A1c (12/09/2023 10:24 PM [...] NP LAB BLOOD ORDERABLES F inal Result [facility] Department of Laboratories [place], [place] [id number] * (ABNORMAL) Lipid panel (08/07/2023 2:35 PM [...] on 2017. HDL 32(L) >=40 mg/dL [facility] Comment: Interpretive Data Ages [...] on 2017. LDL, calculated 33 <=129 mg/dL [facility] Comment: Interpretive Data Ages < or [...] on 2017. Non-HDL Cholesterol 62 mg/dL [facility] Comment: Interpretive Data Ages < or = [...] revised on 2017. Chol/HDL ratio 3 [facility] Blood 08/07/2023 2:35 PM CDT 08/07/2023 2:51 PM CDT us Parris Celestin STORE GIFT WRAP ASSOCIATE LAB BLOOD ORDERABLES Sri l Result Performing Organization Address City/[facility]/ZIP Co de Phone Number MINDI PEÑA [facility] Department [place] [address] * Albumin Creatinine Ratio, Urine (02/23/2023 11:01 AM OUTDOOR EDUCATION TEACHER) Creatinine, ur 94 20 - 275 mg/dL [...] diagnostic category. Urine 02/23/2023 11:0 1 AM OUTDOOR EDUCATION TEACHER 02/23/2023 11:01 AM OUTDOOR EDUCATION TEACHER us Cuba Larsen MD LAB URINE ORDERABLES Final Re sult Performing Organization Address City/[facility]/ZIP Co de Phone Number [facility] [address] [place] [address] * DIABETES EYE EXAM (12/10/2022) us Historical Provider HEALTH MAINTENANCE Final Result from Last 3 Months or Most Recently Relevant to Health Maintenance Insurance [facility] HEALTHCARE HEALTHCARE Advance Directives For more information, please contact: [phone] Documents on File Type Date Recorded Patient Band Sawyer Expl anation ADVANCE DIRECTIVE 12/11/2023 12:06 PM NUHA R OF LACE WINDER-MEDICAL ADVANCE DIRECTIVE 10/27/2019 8:48 AM Power of Core Laying Machine Operator-Medical ADVANCE DIRECTIVE 10/27/2019 8:47 AM Power of Core Laying Machine Operator-Medical * LIMITED - No CPR (Latest Code [...] Healthcare Agent Relationshi p Communication Elio Culp [facility] Health Care Agent Care Teams Business Continuity Strategy Director Relationship Specialty Start Date End Date Cuba Larsen MD PCP - General Family Medicine 01/23/22 Chris Mendes MD Referring Physician Cardiology 12/23/21 Keli Orozco, qa test analyst Failure Coordinator Transplant 04/15/23 Tami Mcknight, qa test analyst Failure Coordinator Cardiology 09/14/23
--- OUTSIDE RECORDS SUMMARY | 2024-03-25 10:55 | XMS_ITS | Encounter Summary ---
Author Organization [facility] Address [address] [place] [address] Phone Care Team Providers Care Home Advisor Name Role Phone Chris Mendes MD Unavailable [phone] Cuba Larsen MD Primary Care Provider [phone] Keli Orozco RN Unavailable Unavailable Tami Mcknight RN Unavailable Unavailab le Reason for Visit * Consultation (Routine) - Authorized Specialty Diagnoses / Procedures Referred By Contac t Referred To Contact Cardiology Diagnoses Paroxysmal atrial fibrillation (CMS/HCC) (HCC) Chris Mendes MD [address] [address] Phone: tel: fax: [facility] (All Locations) Referral ID Status Reason Start Date Expiration Date Visits Requested Visits Authorized [id number] Authorized Specialty Services Required 01/23/2025 99 99 Encounter Details Date Type Department Care Team (Late st Contact Info) Description 03/14/2024 4:00 PM HOSTESS HOST Office Visit [facility] Cardiology [address] [facility] 8th [place] [address] [place] [address] Daryn Alexandra MD PhD [address] [facility] [address] [place] [address] Essential hypertension (Primary Dx); Paroxysmal atrial fibrillation (CMS/HCC) (HCC); Longstanding persistent atrial fibrillation (CMS/HCC) (HCC); Type 2 diabetes mellitus without complication, without long-term current use of insulin (CMS/HCC) (HCC); Obesity (BMI 30-39.9) Social History Tobacco Use [...] on file Legal Sex Female 4:20 AM HOSTESS HOST Gender Identity Not on file Sexual Orientation Not on file documented as of this encounter Last Filed Vital Signs Vital Sign Reading Time Taken Comments Blood Pressure 131/97 03/14/2024 4:04 PM HOSTESS HOST Pulse 118 03/14/2024 4:04 PM HOSTESS HOST Temperature - - Respiratory Rate - - Oxygen Saturation 94% 03/14/2024 4:04 PM HOSTESS HOST Inhaled Oxygen Concentration - - Weight 92.1 kg (203 lb) 03/14/2024 4:04 PM HOSTESS HOST Height 157.5 cm (5' 2 ) 03/14/2024 4:04 PM HOSTESS HOST Body Mass Index 37.13 03/14/2024 4:04 PM HOSTESS HOST documented in this encounter Progress Notes * Daryn Alexandra MD PhD - 03/14/2024 4:00 PM CST Patient ID Prema Pearce 1940 is a 84 y.o. female presenting to the [facility] on 03/14/2024. HISTORY Chief Complaint No chief complaint on file. HPI Ms. Pearce is an 84-year-old woman with a history of paroxysmal atrial fibrillation who is referredfor consideration of left atrial appendage occlusion as an alternative to anticoagulation in light of her propensity to fall and her elevated CHADS2 Vasc risk score. She is currently in a rehab facility after a recent fall. She was mildly confused today and tearful through much of the interview. Her son is here to help with decision making and to fill in details of her history. She has anxiety and is very frustrated by her current circumstance. Her son describes her banging her head against thewall recently in frustration. He reminded her that this might cause a brain bleed and asked her if she was trying to do that. She denies that intention in today's interview. She was hospitalized in the fall for left femoral neck fracture after a fall. [id number] Risk 7 (age, CVA, HTN, DM, female) now on Eliquis. HasBled 3 Problem list Longstanding persistent atrial fibrillation. Previously treated with amiodarone and sotalol. Miguel treated with a strategy of rate control and anticoagulation. 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 All other systems negative. Allergies Allergies Allergen Reactions Amlodipine Shortness of breath Prasanth Inhibitors Cough Reaction: COUGH, Citalopram Lisinopril Lisinopril-Hydrochlorothiazide Dizziness and Nausea only Dizzy, nauseated Medications Current Outpatient Medications Medication Sig Dispense Refill acetaminophen 500 mg capsule Take 2 capsules (1,000 mg total) by mouth every 6 (six) hours ALPRAZolam (XANAX) 0.25 mg tablet 0 apixaban (Eliquis) 5 mg tablet [...] 2 (two) times a day with meals cholecalciferol (VITAMIN D-3) 2000 unit tablet Take by mouth FLUoxetine (PROzac) 40 mg capsule Take 1 capsule (40 mg total) by mouth daily 0 glipiZIDE (GLUCOTROL) 10 mg tablet TAKE 1 TABLET BY MOUTH TWICE A DAY BEFORE BREAKFAST AND LUNCH 180 tablet 1 lancets misc 1 each by other route daily 100 each 1 levothyroxine (SYNTHROID) 50 mcg tablet TAKE 1 TABLET BY MOUTH EVERY DAY 90 tablet 0 lidocaine (ASPERCREME) 4 % adhesive patch,medicated Place 1 patch on the skin daily melatonin 5 mg tablet Take 1 tablet (5 mg total) by mouth nightly metFORMIN (GLUCOPHAGE) 500 mg tablet TAKE 1 TABLET BY MOUTH TWICE A DAY WITH FOOD 180 tablet 1 methocarbamoL (ROBAXIN) 500 mg tablet Take 1 tablet (500 mg total) by mouth 3 (three) times a day 30 tablet 0 oxyCODONE (ROXICODONE) 5 mg immediate release tablet Take 1 tablet (5 mg total) by mouth every 4 (four) hours as needed for pain 15 tablet 0 polyethylene glycol (MIRALAX) 17 gram/dose bulk powder Take 17 g by mouth daily rosuvastatin (CRESTOR) 20 mg tablet TAKE 1 TABLET BY MOUTH EVERY DAY 90 tablet 3 senna (SENOKOT) 8.6 mg tablet Take 1 tablet by mouth daily as needed for constipation spironolactone (ALDACTONE) 50 mg tablet Take 1 tablet (50 mg total) by mouth daily 90 tablet 3 sodium chloride 1 gram tablet Take 1 tablet (1 g total) by mouth daily for 7 days 7 tablet 0 No current facility-administered medications for this visit. Confirmed Outpatient Encounter Medications as of 03/14/2024 Medication Sig Dispense Refill acetaminophen 500 mg capsule Take 2 capsules (1,000 mg total) by mouth every 6 (six) hours ALPRAZolam (XANAX) 0.25 mg tablet 0 apixaban (Eliquis) 5 mg tablet Take 1 tablet (5 mg total) by mouth 2 (two) times a day 60 tablet 11 blood glucose diagnostic (glucose blood) strip One strip daily to check glucose 100 each 1 blood-glucose meter mis Use daily or as directed for monitoring of diabetes. 1 each 0 CALCIUM CARBONATE ORAL Take 600 mg by mouth 2 (two) times a day carvediloL (COREG) 25 mg tablet Take 1 tablet (25 mg total) by mouth 2 (two) times a day with meals cholecalciferol (VITAMIN D-3) 2000 unit tablet Take by mouth FLUoxetine (PROzac) 40 mg capsule Take 1 capsule (40 mg total) by mouth daily 0 glipiZIDE (GLUCOTROL) 10 mg tablet TAKE 1 TABLET BY MOUTH TWICE A DAY BEFORE BREAKFAST AND LUNCH 180 tablet 1 lancets misc 1 each by other route daily 100 each 1 levothyroxine (SYNTHROID) 50 mcg tablet TAKE 1 TABLET BY MOUTH EVERY DAY 90 tablet 0 lidocaine (ASPERCREME) 4 % adhesive patch,medicated Place 1 patch on the skin daily melatonin 5 mg tablet Take 1 tablet (5 mg total) by mouth nightly metFORMIN (GLUCOPHAGE) 500 mg tablet TAKE 1 TABLET BY MOUTH TWICE A DAY WITH FOOD 180 tablet 1 methocarbamoL (ROBAXIN) 500 mg tablet Take 1 tablet (500 mg total) by mouth 3 (three) times a day 30 tablet 0 oxyCODONE (ROXICODONE) 5 mg immediate release tablet Take 1 tablet (5 mg total) by mouth every 4 (four) hours as needed for pain 15 tablet 0 polyethylene glycol (MIRALAX) 17 gram/dose bulk powder Take 17 g by mouth daily rosuvastatin (CRESTOR) 20 mg tablet TAKE 1 TABLET BY MOUTH EVERY DAY 90 tablet 3 senna (SENOKOT) 8.6 mg tablet Take 1 tablet by mouth daily as needed for constipation spironolactone (ALDACTONE) 50 mg tablet Take 1 tablet (50 mg total) by mouth daily 90 tablet 3 sodium chloride 1 gram tablet Take 1 tablet (1 g total) by mouth daily for 7 days 7 tablet 0 No facility-administered encounter medications on file as of 03/14/2024. Past Medical History Past Medical History: Diagnosis Date Adrenal nodule [...] Left 05/22/2019 KIDNEY STONE SURGERY Family History Ms. Pearce's family history includes Diabetes in her father and son; Heart attack in her father; Heart disease in her father and mother; Heart failure in her mother; Hypertension in her father; Sudden Cardiac in her mother. Social History Ms. Pearce reports that she has never smoked. She has never used smokeless tobacco. She reports that she does not use drugs. Patient denies consuming alcoholic drinks. PHYSICAL EXAM BP 131/97 Pulse 118 Ht 157.5 cm (5' 2 ) Wt 92.1 kg (203 lb) SpO2 94% BMI 37.13 kg/m?? General: No acute distress. Seated in a wheelchair Psychiatric: Normal affect. Skin: No evident lesions. Eyes: No pallor or icterus. Lungs: Clear to auscultation bilaterally. Chest: Symmetric respiratory excursion Cardiovascular: Regular rate rhythm S1-S2 no murmur. Jugular venous pulse not visible. Bilateral lower extremity edema. Abdomen: Soft and non-tender. Neurologic: Handgrip strength symmetric. Cranial nerves grossly intact. Extremities: Warm and dry DIAGNOSTIC DATA Reviewed Echocardiogram: SUMMARY: AF/RVR. Normal LV size and wall [...] Hg, and mild MR. Mild TR and NH. Unable to assess PA pressure. No pericardial effusion. No vegetations seen. Compared with 07/27/23, no significant change. Confirmed on 12/11/2023 - 13:11:51 by Frank Horn MD Labs: Lab Results Component Value Date INR 1.57 (H) 12/08/2023 INR 1.21 (H) 08/07/2023 INR 1.0 08/07/2023 APTT 33 12/08/2023 APTT 30 08/07/2023 APTT 32 08/07/2023 Lab Results Component Value Date TROPONINI 2.97 (Critical) 06/09/2019 TROPONINI 3.47 (Critical) 06/09/2019 TROPONINI 4.36 (Critical) 06/09/2019 BNP 117 (H) 08/20/2020 Lab Results Component Value Date TSH 2.88 07/22/2022 TSH 3.36 10/28/2021 TSH 1.34 03/12/2021 FREET4 1.3 10/28/2021 Lab Results Component Value Date CHOL 94 08/07/2023 TRIG 145 08/07/2023 HDL 32 (L) 08/07/2023 LDLCALC 33 08/07/2023 LDL 54 02/23/2023 Medical Decision Making Longstanding persistent atrial fibrillation. She continues to be a fall risk. We have discussed left atrial appendage occlusion. She is very frustrated by her current health status and difficulty in rehab. She feels that she isn't making headway in his had a number of setbacks this year. She does not want to consider an invasive procedure at this time but may in the future if her situation improves. For now she will continue on Eliquis. .Status exacerbation or progression. Risk of complicationsand/or morbidity or Mortality Moderate as evidenced by Decision regarding procedure/surgery Ms. Pearce has my contact information for any questions in the interim. Please do not hesitate to page me at for any questions regarding the care of Ms. Pearce. [id number]-[id number] time spent 45 minutes, over half of which was spent on counseling about the diagnoses and the management options. Daryn Alexandra MD PhD 03/14/2024 ESS HOST documented in this encounter Plan of Treatment Not on file documented as of this encounter Visit Diagnoses Diagnosis Essential hypertension- Primary Unspecified essential hypertension Paroxysmal atrial fibrillation (CMS/HCC) (HCC) Atrial fibrillation Longstanding persistent atrial fibrillation (CMS/HCC) (HCC) Type 2 diabetes mellitus without complication, without long-term current use of insulin (CMS/HCC) (HCC) Obesity (BMI 30-39.9) documented in this encounter Orders Outpatient Referral Count Last Ordered Date Fir st Ordered Date AMB REFERRAL TO CARDIOLOGY 1 03/14/2024 documented in this encounter Care Teams Home Advisor Relationship Specialty Start Date End Date Cuba Larsen MD PCP - General Family Medicine 01/23/22 Chris Mendes MD Referring Physician Cardiology 12/23/21 Keli Orozco, hazardous waste remover Failure Coordinator Transplant 04/15/23 Tami Mcknihgt, hazardous waste remover Failure Coordinator Cardiology 09/14/23 documented as of this encounter
--- OUTSIDE RECORDS SUMMARY | 2024-03-25 10:55 | XMS_ITS | Encounter Summary ---
Author Organization [facility] Healthcare Address [address] [place] [address] Care Team Providers Care Marketing Research Intern Name Role Phone Chris Mendes MD Unavailable [phone] Cuba Larsen MD Primary Care Provider [phone] Keli Orozco RN Unavailable Unavailable Tami Mcknight RN Unavailable Unavailab le Encounter Details Date Type Department Care Team (Late st Contact Info) Description 02/11/2024 Orders Only [facility] [facility] [place] [address] [place] [address] Cuba Larsen MD [facility] [address] [address] Social History Tobacco Use Types [...] on file Legal Sex Female 4:20 AM ROUTE AIDE Gender Identity Not on file Sexual Orientation [...] filedocumented in this encounter Care Teams Marketing Research Intern Relationship Specialty Start Date End Date Cuba Larsen MD PCP - General Family Medicine 01/23/22 Chris Mendes MD Referring Physician Cardiology 12/23/21 Keli Orozco, aviation maintenance technician Failure Coordinator Transplant 04/15/23 Tami Mcknight RN Heart Failure Coordinator Cardiology 09/14/23 documented as of this encounter
--- OUTSIDE RECORDS SUMMARY | 2024-03-25 10:55 | XMS_ITS | Encounter Summary ---
Author Organization [facility] Healthcare Address [address] [place] [address] Care Team Providers Care Rural Electrification Engineer Name Role Phone Chris Mendes MD Unavailable [phone] Cuba Larsen MD Primary Care Provider [phone] Keli Orozco RN Unavailable Unavailable Tami Mcknight RN Unavailable Unavailab le Encounter Details Date Type Department Care Team (Late st Contact Info) Description 02/10/2024 [place] Only [facility] [place] [address] [place] [address] Cuba Larsen MD [facility] [address] [address] Social History Tobacco Use Types [...] on file Legal Sex Female 4:20 AM ACCOUNTING INTERN Gender Identity Not on file Sexual Orientation [...] on filedocumented in this encounter Care Teams Rural Electrification Engineer Relationship Specialty Start Date End Date Cuba Larsen MD PCP - General Family Medicine 01/23/22 Chris Mendes MD Referring Physician Cardiology 12/23/21 Keli Orozco, management aide Failure Coordinator Transplant 04/15/23 Tami Mcknight RN Heart Failure Coordinator Cardiology 09/14/23 documented as of this encounter
--- OUTSIDE RECORDS SUMMARY | 2024-03-25 10:55 | XMS_ITS | Encounter Summary ---
Author Organization [facility] Healthcare Address [address] [place] [address] Care Team Providers Care Game Designer/Creative Director Name Role Phone Chris Mendes MD Unavailable [phone] Cuba Larsen MD Primary Care Provider [phone] Keli Orozco RN Unavailable Unavailable Tami Mcknight RN Unavailable Unavailab le Reason for Referral * Consultation (Routine) - Closed Specialty Diagnoses / Procedures Referred By Indra muñoz Referred To Contact Gastroenterology Diagnoses Cuba Kathleen MD [address] [facility] [address] [address] Phone: tel: fax: Jose Miguel Kaur MD [address] [facility] [address] [facility] [address] [place] [address] Phone: tel: fax: Referral ID Status Reason Start Date Expiration Date V isits Requested Visits Authorized [id number] Closed Specialty Services Required 02/22/2024 03/23/2025 1 1 Question Answer Please select the performing region: External Order [171] To provider: CHRISTOPHER HOYT [[id number]] INE STONECUTTER Reason for Visit * Reason Onset Date Comments Referral Request 02/22/2024 Encounter Details Date Type Department Care Team (Late st Contact Info) Description 02/22/2024 Telephone [facility] Family Medicine at [address] [place] [address] Cuba Larsen MD [facility] CLAUD[place] [address] [place] [address] Referral Request Social History Tobacco Use Types [...] on file Legal Sex Female 4:20 AM MACHINE STONECUTTER Gender Identity Not on file Sexual Orientation Not on file documented as of this encounter Miscellaneous Notes * Telephone Encounter - Aziza Mustafa - 02/23/2024 10:[address] Hoyt was showing out of network with [facility]. Spoke with office and patient was rescheduled to Dr Faustin. Insurance referral faxed to office and mailed to patient. INE STONECUTTER * Telephone Encounter - Leandra Winters RN - 02/22/2024 9:28 AM CST Spoke with Summer and it's FU to EGD done 12/31/2023 for melena. INE STONECUTTER * Telephone Encounter - Christy Jamesh - 02/22/2024 8:01 AM CST Referral Provider Name: Dr. Christopher Hoyt Specialty: Gastroenterology Address: [address] [place] [address], Zip: [place] [address] Diagnosis Code/Symptom/Reason Patient is being seen: Follow up appointment Date of Appointment: 02/23/2024 NPI#: [id number] Tax ID#: [id number] Is insurance in chart up to date? Yes, [employer] Additional Comments: None Does message need to be routed? Yes-Action Needed INE STONECUTTER documented in this encounter Plan of Treatment Scheduled Referrals Name Type Priority Associated Diagnoses Order Schedule Ambulatory referral to Gastroenterology Outpatient Referral Routine Melena Expected: 02/22/2024 (Approximate), Expires: 02/21/2025 documented as of this encounter Visit Diagnoses Diagnosis Melena- Primary Blood in stool documented in this encounter Care Teams Game Designer/Creative Director Relationship Specialty Start Date End Date Cuba Larsen MD PCP - General Family Medicine 01/23/22 Chris Mendes MD Referring Physician Cardiology 12/23/21 Keli Orozco, planting machine operator Failure Coordinator Transplant 04/15/23 Tami Mcknight, planting machine operator Failure Coordinator Cardiology 09/14/23 documented as of this encounter
--- OUTSIDE RECORDS SUMMARY | 2024-03-25 10:55 | XMS_ITS | Encounter Summary ---
Author Organization [facility] Healthcare Address [address] [place] [address] Care Team Providers Care Stock Selector Name Role Phone Chris Mendes MD Unavailable [phone] Cuba Larsen MD Primary Care Provider [phone] Keli Orozco RN Unavailable Unavailable Tami Mcknight RN Unavailable Unavailab le Reason for Visit * Reason Comments Chart Review Med Adherence Encounter Details Date Type Department Care Team ([facility] st Contact Info) Description 02/08/2024 ACO Clinical Pharmacist [facility] Accountable Care Organization [address] [place] [address] Racquel Nance RPh [address] [place] [address] [facility] [address] [place] [address] Social History Tobacco Use Types Packs/Day Years [...] on file Legal Sex Female 4:20 AM LINE OUT WORKER Gender Identity Not on file Sexual [...] during December hospital stay Racquel Nance RPh OUT WORKER OUT WORKER documented in this encounter Plan of Treatment Not on file documented as of this encounter Visit Diagnoses Not on filedocumented in this encounter Care Teams Stock Selector Relationship Specialty Start Date End Date Cuba Larsen MD PCP - General Family Medicine 01/23/22 Chris Mendes MD Referring Physician Cardiology 12/23/21 Keli Orozco RN Heart Failure Coordinator Transplant 04/15/23 Tami Mcknight RN Heart Failure Coordinator Cardiology 09/14/23 documented as of this encounter
--- OUTSIDE RECORDS SUMMARY | 2024-03-25 10:55 | XMS_ITS | Encounter Summary ---
Author Organization [facility] Healthcare Address [address] [place] [address] Care Team Providers Care Pipe Fitter Gas Pipe Name Role Phone Chris Mendes MD Unavailable Cuba Larsen MD Primary Care Provider [phone] Keli Orozco RN Unavailable Unavailable Tami Mcknight RN Unavailable Unavailab le Encounter Details Date Type Department Care Team (Late st Contact Info) Description 02/13/2024 Orders Only [facility] Health Information Management [address] [place] [id number] Cuba Larsen MD [facility] [address] [address] Social History Tobacco Use Types [...] on file Legal Sex Female 4:20 AM STRUCTURAL STEEL ERECTOR Gender Identity Not on file Sexual Orientation [...] on filedocumented in this encounter Care Teams Pipe Fitter Gas Pipe Relationship Specialty Start Date End Date Cuba Larsen MD PCP - General Family Medicine 01/23/22 Chris Mendes MD Referring Physician Cardiology 12/23/21 Keli Orozco, manufacturing operations manager Failure Coordinator Transplant 04/15/23 Tami Mcknight RN Heart Failure Coordinator Cardiology 09/14/23 documented as of this encounter
--- OUTSIDE RECORDS SUMMARY | 2024-03-25 10:55 | XMS_ITS | Encounter Summary ---
Author Organization [facility] Healthcare Address [address] [place] [address] Care Team Providers Care Spiral Spring Winder Name Role Phone Chris Mendes MD Unavailable [phone] Cuba Larsen MD Primary Care Provider [phone] Keli Orozco RN Unavailable Unavailable Tami Mcknight RN Unavailable Unavailab le Reason for Referral * Consultation (Routine) - Authorized Specialty Diagnoses / Procedures Referred By Indra muñoz Referred To Contact Cardiology Diagnoses Paroxysmal atrial fibrillation (CMS/HCC) (HCC) Chris Mendes MD [address] [address] Phone: tel: fax: [facility] (All Locations) Referral ID Status Reason Start Date Expiration Date Visits Requested Visits Authorized [id number] Authorized Specialty Services Required 4 01/23/2025 99 99 Question Answer Please select the performing region: [facility] (All Locations) [167] Is this referral for the Valve Clinic? Yes Is this referral for the Renal Denervation Clinic? No # of visits: 1 Comments consideration of LAAO/Watchman device CIATE PROFESSOR OF PSYCHOLOGY Encounter Details Date Type Department Care Team (Late st Contact Info) Description 02/03/2024 Orders Only [facility] Transplant Heart [address] [facility] [address] [id number] [place] [address] Keli Orozco RN Paroxysmal atrial fibrillation (CMS/HCC) [...] on file Legal Sex Female 4:20 AM ASSOCIATE PROFESSOR OF PSYCHOLOGY Gender Identity Not on file Sexual Orientation [...] fibrillation documented in this encounter Care Teams Spiral Spring Winder Relationship Specialty Start Date End Date Cuba Larsen MD PCP - General Family Medicine 01/23/22 Chris Mendes MD Referring Physician Cardiology 12/23/21 Keli Orozco RN Heart Failure Coordinator Transplant 04/15/23 Tami Mcknight, handle and vent machine operator Failure Coordinator Cardiology 09/14/23 documented as of this encounter
--- OUTSIDE RECORDS SUMMARY | 2024-03-25 10:55 | XMS_ITS | Encounter Summary ---
Author Organization [facility] Address [address] [place] [address] Phone Care Team Providers Care Paving And Surfacing Labourer Name Role Phone Chris Sanchez MD Unavailable [phone] Cuba Larsen MD Primary Care Provider [phone] Keli Orozco RN Unavailable Unavailable Tami Mcknight RN Unavailable Unavailab le Reason for Visit * Reason Onset Date Comments LAAO IOV 02/05/2024 Encounter Details Date Type Department Care Team (Late st Contact Info) Description 02/05/2024 Telephone [facility] Cardiology [facility] [address]th [place] [address] [place] [phone] Chris Sanchez MD [address] [facility] [address] [place] [address] LAAO IOV Social History Tobacco Use Types [...] on file Legal Sex Female 4:20 AM MANIPULATOR OPERATOR Gender Identity Not on file Sexual [...] make the time change in her chart PULATOR OPERATOR * Telephone Encounter - Jillian Brownign RN - 02/23/2024 10:03 AM CST Conf letter pending for appt 03/14/24. PULATOR OPERATOR * Telephone Encounter - Geovanna Franklin - 02/23/2024 8:11 AM CST Routing encounter to follow up please advise on scheduling. PULATOR OPERATOR * Telephone Encounter - Alise Guillory - 02/05/2024 2:45 PM CST Watchman Referral [id number] atrial fibrillation (CMS/HCC) (HCC) Referred By CHRIS ASNCHEZ Provider Comments consideration of LAAO/Watchman device Referred On02/03/2024 PULATOR OPERATOR documented in this encounter Plan of Treatment Not on file documented as of this encounter Visit Diagnoses Not on filedocumented in this encounter Care Teams Paving And Surfacing Labourer Relationship Specialty Start Date End Date Cuba Larsen MD PCP - General Family Medicine 01/23/22 Chris Sanchez MD Referring Physician Cardiology 12/23/21 Keli Orozco, construction manager Failure Coordinator Transplant 04/15/23 Tami Mcknight, construction manager Failure Coordinator Cardiology 09/14/23 documented as of this encounter
--- OUTSIDE RECORDS SUMMARY | 2024-03-25 10:55 | XMS_ITS | Encounter Summary ---
Author Organization [facility] Address [address] [place] [address] Phone Care Team Providers Care Home Economics Extension Worker Name Role Phone Chris Mendes MD Unavailable [phone] Cuba Larsen MD Primary Care Provider [phone] Keli Orozco RN Unavailable Unavailable Tami Mcknight RN Unavailable Unavailab le Reason for Visit * Consultation (Routine) - Authorized Specialty Diagnoses / Procedures Referred By Contac t Referred To Contact Cardiology Diagnoses Mitral valve prolapse Cuba Larsen MD [address] [address] Phone: tel: fax: Chris Mendes MD [address] [address] Phone: tel: fax: Referral ID Status Reason Start Date Expiration Date Visits Requested Visits Authorized [id number] Authorized Specialty Services Required 01/23/2025 12 12 Encounter Details Date Type Department Care Team (Late st Contact Info) Description 02/01/2024 1:20 PM ACCOUNT MANAGER FOREST SERVICE Office Visit [facility] Cardiology [address] [facility] 8th [place] [address] [place] [phone] Chris Mendes MD [address] [facility] [address] [place] [address] Other hyperlipidemia (Primary Dx); Mitral valve prolapse; [...] on file Legal Sex Female 4:20 AM ACCOUNT MANAGER FOREST SERVICE Gender Identity Not on file Sexual Orientation Not on file documented as of this encounter Last Filed Vital Signs Vital Sign Reading Time Taken Comments Blood Pressure 95/58 02/01/2024 1:39 PM ACCOUNT MANAGER FOREST SERVICE Pulse 81 02/01/2024 1:39 PM ACCOUNT MANAGER FOREST SERVICE Temperature - - Respiratory Rate - - Oxygen Saturation 95% 02/01/2024 1:39 PM ACCOUNT MANAGER FOREST SERVICE Inhaled Oxygen Concentration - - Weight 81.6 kg (180 lb) 02/01/2024 1:39 PM ACCOUNT MANAGER FOREST SERVICE Height 157.5 cm (5' 2 ) 02/01/2024 1:39 PM ACCOUNT MANAGER FOREST SERVICE Body Mass Index 32.92 02/01/2024 1:39 PM ACCOUNT MANAGER FOREST SERVICE documented in this encounter Patient Instructions * Patient Instructions* Tami Mcknight RN - 02/01/2024 1:20 PM ACCOUNT MANAGER FOREST SERVICE For any questions or concerns, please call the Heart Failure Office at [phone]. Thank you! Dyan ultrasound supervisor Failure/Heart Transplant Coordinators PLAN FOR TODAY: Medication Changes: None today. Testing: None today. Follow-up: 6 months Misc: UNT MANAGER FOREST SERVICE UNT MANAGER FOREST SERVICE UNT MANAGER FOREST SERVICE UNT MANAGER FOREST SERVICE documented in this encounter Progress Notes * Donaldo Metcalf MD - 02/01/2024 1:20 PM CST Images from the original note were not included. Department of Medicine Chris Mendes M.D. Cardiovascular Division Professor, [facility] Advanced [facility] Director, Heart Failure Program RETURN OFFICE VISIT NOTE Date of Visit: 02/01/24 Name: Prema Pearce : 1940 Medical Record: [id number] Correspondence: Cuba Larsen MD Reason for visit: followup of cardiomyopathy Dear Cuba Larsen MD: It was my pleasure to see Prema Pearce today at the [facility] for follow-up [...] Hg, and mild MR. Mild TR and SC. Unable to assess PA pressure. No pericardial [...] placed in this encounter. Donaldo Metcalf MD Cushion Builder 02/01/24 1:48 PM Cosigned by Chris Mendes MD at 02/01/2024 11:34 PM ACCOUNT MANAGER FOREST SERVICE UNT MANAGER FOREST SERVICE UNT MANAGER FOREST SERVICE Associated attestation - Chris Mendes MD - 02/01/2024 11:34 PM ACCOUNT MANAGER FOREST SERVICE I have seen and examined the patient. [...] 02/01/2024 documented in this encounter Care Teams Home Economics Extension Worker Relationship Specialty Start Date End Date Cuba Larsen MD PCP - General Family Medicine 01/23/22 Chris Mendes MD Referring Physician Cardiology 12/23/21 Keli Orozco, ultrasound supervisor Failure Coordinator Transplant 04/15/23 Tami Mcknight ultrasound supervisor Failure Coordinator Cardiology 09/14/23 documented as of this encounter
--- OUTSIDE RECORDS SUMMARY | 2024-03-25 10:55 | XMS_ITS | Referral Summary ---
Author Organization [facility] Address [address] [place] [address] Care Team Providers Care Manager Privacy Name Role Phone Chris Mendes MD Unavailable [phone] Cuba Larsen MD Primary Care Provider [phone] Keli Orozco RN Unavailable Unavailable Tami Mcknight RN Unavailable Unavailab le Encounters Date Type Department Care Team Description 03/18/2024 Orders Only [facility] Health Information Management [address] [place] [phone] Cuba Larsen MD 03/16/2024 8:20 PM ELECTRONIC NEWS GATHERING CAMERA PERSON - 03/16/2024 11:59 PM ELECTRONIC NEWS GATHERING CAMERA PERSON Hospital Encounter [facility] [address] [place] [address] Discharge Disposition: Discharge to home or self care 03/14/2024 4:00 PM ELECTRONIC NEWS GATHERING CAMERA PERSON Office Visit [facility] 8th [place] [address] [place] [address] Daryn Alexandra MD PhD Essential hypertension (Primary Dx); Paroxysmal atrial fibrillation (CMS/HCC) (HCC); Longstanding persistent atrial fibrillation (CMS/HCC) (HCC); Type 2 diabetes mellitus without complication, without long-term current use of insulin (CMS/HCC) (HCC); Obesity (BMI 30-39.9) 02/26/2024 Orders Only [facility] Information Management [address] [place] [address] Cuba Larsen MD 02/22/[address] [facility] Family [facility] at [place] [address] [facility] [address] [place] [address] Cuba Larsen MD Referral Request 02/18/[address] [facility] Medical Group Cardiology [address] [facility] [address] [place] [address] Magnolia Rico NP 02/15/2024 Orders Only [facility] [address] [facility] [address] [place] [phone] Catarino Ramirez MD 02/13/2024 Orders Only [facility] Health Information Management [address] [place] [address] Cuba Larsen MD 02/11/2024 Orders Only [facility] Health Information Management [address] [place] [address] Cuba Larsen MD 02/10/2024 Orders Only [facility] Health Information Management [address] [place] [phone] Cuba Larsen MD 02/08/[address] [facility] Accountable Care Organization [address] [place] [address] Racquel Nance [facility] 02/05/2024 Telephone [facility] 8th [place] [address] [place] [address] Chris Mendes MD LAAO IOV 02/03/2024 Orders Only [facility] Transplant Heart [address] Mailstop [phone] [place] [address] Keli Orozco RN Paroxysmal atrial fibrillation (CMS/HCC) (HCC) (Primary Dx) 02/01/2024 1:20 PM ELECTRONIC NEWS GATHERING CAMERA PERSON Office Visit [facility] [address] [facility] [address] [place] [address] [place] [address] Chris Mendes MD Other hyperlipidemia (Primary Dx); Mitral valve prolapse; Essential hypertension 01/19/2024 Telephone [facility] at [address] [place] [phone] Cuba Larsen MD Referral Request 01/18/2024 2:00 PM ELECTRONIC NEWS GATHERING CAMERA PERSON - 01/18/2024 11:59 PM ELECTRONIC NEWS GATHERING CAMERA PERSON Hospital Encounter [facility] [address] [place] [address] Closed displaced fracture of left femoral neck (HCC) Discharge Disposition: Discharge to home or self care 01/18/2024 2:15 PM ELECTRONIC NEWS GATHERING CAMERA PERSON Office Visit [facility] [address] [facility] 6th [place] [address] [place] [address] Homer Villalobos MD Closed displaced fracture of left femoral neck (HCC) (Primary Dx); Open intertrochanteric fracture of left femur, sequela 01/15/2024 Telephone [facility] at [address] [place] [phone] Cuba Larsen MD Referral Request 01/05/2024 Telephone [facility] at [address] [place] [phone] Cuba Larsen MD 1st no show letter sent 01/05/24 01/04/2024 Telephone [facility] Sched[facility] [address] [place] [address] Gilda Hollingsworth DNP Scheduling Appointments 12/25/2023 Telephone [facility] at [address] [place] [phone] Cuba Larsen MD Medical Question/Miscellaneous from Last 3 Months Allergies Active Allergy Reactions Criticality Noted Date Comments Prasanth Inhibitors Cough Reaction: COUGH, Amlodipine Shortness of breath High 07/21/2019 Citalopram Lisinopril Lisinopril-Hydrochloro thiazide Dizziness,Nausea only Low 05/13/2021 Dizzy, nauseated Medications CALCIUM CARBONATE ORAL Take 600 mg by mouth 2 (two) times a day Active blood-glucose meter miscIndication s:Type 2 diabetes mellitus without complication, without long-term current use of insulin ([facility] ([facility]) Use daily or as directed for monitoring of diabetes. 1 each 03/19/19 24 Active blood glucose diagnostic (glucose blood) stripIndicatio ns:Type 2 diabetes mellitus without complication, without long-term current use of insulin ([facility] ([facility]) One strip daily to check glucose 100 each 1 03/19/19 24 Active lancets miscIndication s:Type 2 diabetes mellitus without complication, without long-term current use of insulin ([facility] ([facility]) 1 each by other route daily [...] Take 17 g by mouth daily 12/16/19 Active senna (SENOKOT) 8.6 mg tablet Take 1 tablet by mouth daily as needed for constipation 12/16/19 24 025 Active sodium chloride 1 gram tablet Take 1 tablet (1 g total) by mouth daily for 7 days 7 tablet 12/16/19 Active carvediloL (COREG) 25 mg tablet Take 1 tablet (25 mg total) by mouth 2 (two) times a day with meals 12/16/19 24 025 Active oxyCODONE (ROXICODONE) 5 mg immediate release tabletIndicati ons:Pain Take 1 tablet (5 mg total) by mouth every 4 (four) hours as needed for pain 15 tablet 12/16/19 Active ALPRAZolam (XANAX) 0.25 mg tablet 0 [...] 12/15 Na 129 - Recheck BMP at [facility] in 1 week Acute blood loss [...] Hgb stable at 7.7 (7.7), DC to [facility] Treatment Plan: done 12/15 Encounter for medication review 12/09/2023 Assessment & Plan (12/09/2023 6:13 AM CDT): Medications reviewed and updated in admissions tab Home pharmacy [facility] DNR [...] 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 Patient has follow-up with Urology for continued management of the kidney stones. Assessment & Plan (03/21/2021 12:52 PM ELECTRONIC NEWS GATHERING CAMERA PERSON): Will arrange for stat CT abdomen pelvis [...] monitor. Assessment & Plan (03/12/2021 7:23 PM ELECTRONIC NEWS GATHERING CAMERA PERSON): Increase prozac dosing Advised finding hobbies to help take her mind off of world events Assessment & Plan (02/05/2021 5:41 PM ELECTRONIC NEWS GATHERING CAMERA PERSON): Add prozac every day, continue with prn [...] time Assessment & Plan (03/12/2021 7:23 PM ELECTRONIC NEWS GATHERING CAMERA PERSON): Continue with prn ambien Assessment & Plan (02/05/2021 5:42 PM ELECTRONIC NEWS GATHERING CAMERA PERSON): Continue with prn ambien Assessment & Plan [...] mcg Assessment & Plan (03/12/2021 7:22 PM ELECTRONIC NEWS GATHERING CAMERA PERSON): Will evaluate further with labs Continue meds [...] Type 2 diabetes mellitus without complications ( [facility]) 05/31/2019 Assessment & Plan [...] available Assessment & Plan (03/12/2021 7:22 PM ELECTRONIC NEWS GATHERING CAMERA PERSON): Continue medications same at this time Encouraged heart healthy diet Advised increasing frequency of eating Assessment & Plan (02/05/2021 5:42 PM ELECTRONIC NEWS GATHERING CAMERA PERSON): Stable, continue meds same at this time [...] report the blood pressure readings to her construction equipment overhauler. Assessment & Plan (07/15/2021 5:40 PM CDT): Continue with care per construction equipment overhauler Assessment & Plan (06/17/2021 1:09 PM CDT): [...] Plan (08/21/2020 4:37 PM CDT): Managed by construction equipment overhauler, continue medication same at this time Assessment & Plan (06/04/2019 7:57 AM CDT): Patient on amlodipine 5 mg, losartan 100 mg, carvedilol 25 mg BID, and HCTZ 25 mg at home - Currently holding home antihypertensives in setting of PE with soft blood pressures, restart as tolerated Presence of left artificial knee joint 0 Longstanding persistent atrial fibrillation ([facility]) 08/18/2017 Assessment & Plan (12/14/2023 9:12 AM CDT): Holding home eliquis and Carvedilol 12/10 A fib controlled HR 100s, restarting Coreg 12.5 mg PO BID (home dose 50 mg PO BID) CTM 12/11 HR 90s a fib rate controlled, continue Coreg 25 mg PO BID 12/13 remains rate controlled 90s, continue Coreg 25 mg PO BID Follow up scheduled: [facility] 01/31 at 1:20 Assessment & Plan (08/21/2020 4:37 PM CDT): Managed by construction equipment overhauler, has pet/ct stress this week. Essential tremor [...] time She will continue with CAM boot Assessment & Plan (06/02/2021 9:54 AM CDT): Patient sustained a distal fibular fracture after falling related to the stroke. She is currently in a boot. She needs to see Orthopedics and has been scheduled at [facility] that would prefer to be seen [place]. Will make referral to Ortho in [place] for definitive management of this ankle fracture. Kidney stone 05/21/2021 10/09/2022 Acute left flank pain 03/21/20212021 Assessment & Plan (03/21/2021 12:52 PM ELECTRONIC NEWS GATHERING CAMERA PERSON): Will arrange for stat CT abdomen pelvis without contrast in stat labs today. Will notify patient of the results as they become available. She was advised to report to the ER in the interim if symptoms are worsening. Acute cystitis with hematuria 03/12/2021 10/21/2021 Assessment & Plan (03/21/2021 12:52 PM ELECTRONIC NEWS GATHERING CAMERA PERSON): Will arrange for stat CT abdomen pelvis without contrast in stat labs today. Will notify patient of the results as they become available. She was advised to report to the ER in the interim if symptoms are worsening. Assessment & Plan (03/12/2021 7:25 PM ELECTRONIC NEWS GATHERING CAMERA PERSON): We reviewed poc ua. Will culture urine, will notify her of results as available. Advised to f/u in next week if not improving, sooner if worsening. BMI 29.0-29.9,adult 03/12/2021 06/04/19 Weight loss 03/12/2021 08/13/2022 Assessment & Plan (03/12/2021 7:24 PM ELECTRONIC NEWS GATHERING CAMERA PERSON): Will evaluate further with labs and imaging, [...] 08/13/2022 Assessment & Plan (03/12/2021 7:23 PM ELECTRONIC NEWS GATHERING CAMERA PERSON): Will evaluate further with labs and imaging, [...] 12:18 PM CDT): Currently being evaluated by construction equipment overhauler, cardiac cath pending. Will also refer to metal furniture glazier for further evaluation and treatment. BMI 30.0-30.9,adult [...] depression Assessment & Plan (03/12/2021 7:22 PM ELECTRONIC NEWS GATHERING CAMERA PERSON): Will increase strength of xanax, encouraged using prn Assessment & Plan (02/05/2021 5:41 PM ELECTRONIC NEWS GATHERING CAMERA PERSON): Add prozac every day, continue with prn [...] chronic systolic CH F (congestive heart failure) ([facility]) 06/08/2019 02/13/2022 Non-ST elevation (NSTEMI) my ocardial infarction ([facility]) 06/08/2019 08/13/2022 Chronic combined systolic (c ongestive) and diastolic (congestive) heart failure 06/05/2019 Hypertensive heart disease w ith heart failure ([facility]) 06/05/2019 09/02/2023 Hypokalemia 06/05/2019 02/13/2022 Assessment & Plan (06/17/2021 1:09 PM CDT): Resume kcl 20meq one tab daily Repeat bmp this week Insomnia, unspecified 06/05/20192023 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 (current) use of insulin 06/05/2019 03/03/2023 Major [...] (05/22/2019): Added automatically from request for surgery [id number] Closed displaced comminuted fracture of shaft of left femur 05/21/2019 06/01/2021 Overview (05/23/2019): Added automatically from request for surgery [id number] BMI 36.0-36.9,adult 10/11/2015 09/05/19 21 Assessment & [...] on file Legal Sex Female 4:20 AM ELECTRONIC NEWS GATHERING CAMERA PERSON Gender Identity Not on file Sexual Orientation Not on file Last Filed Vital Signs Vital Sign Reading Time Taken Comments Blood Pressure 131/97 03/14/2024 4:04 PM ELECTRONIC NEWS GATHERING CAMERA PERSON Pulse 118 03/14/2024 4:04 PM ELECTRONIC NEWS GATHERING CAMERA PERSON Temperature 36.1 ??C (97 ??F) 12/16/2023 5:14 PM CDT Respiratory Rate 18 12/16/2023 6:20 PM CDT Oxygen Saturation 94% 03/14/2024 4:04 PM ELECTRONIC NEWS GATHERING CAMERA PERSON Inhaled Oxygen Concentration - - Weight 92.1 kg (203 lb) 03/14/2024 4:04 PM ELECTRONIC NEWS GATHERING CAMERA PERSON Height 157.5 cm (5' 2 ) 03/14/2024 4:04 PM ELECTRONIC NEWS GATHERING CAMERA PERSON Body Mass Index 37.13 03/14/2024 4:04 PM ELECTRONIC NEWS GATHERING CAMERA PERSON Plan of Treatment Not on file Medical Devices Implanted Type Area Nuclear Physics Teacher Device Identifier Shelf Expiration Date Model / Serial / Lot Plate-07/29/2015 Implanted:07/28 (Quantity not on file) Plate Left: Wrist Screw-07/29/2015 Implanted:07/28 (Quantity not on file) Screw Left: Wrist Description:x2 Synthes 4.5mm 8mm 40mm Self Tap Large Hexagonal Socket Cortex Screw Bone 214.840 - [id number] Implanted:Qty: 1 on 12/09/2023 by Homer Villalobos MD at [facility] Screw Left: Femur Synthes 214.840 / / [employer] 6191-1-010 Simplex P Radiopaque Full Dose Cement Bone Sterile - [id number] Implanted:Qty: 1 on 05/25/2019 by Kaveh Charles MD at [facility] Left: Femur [employer] 01/13/2021 6191-1-010 / / [id number] [employer] 6191 Simplex P Radiopaque Full Dose Cement Bone Sterile - [id number] Implanted:Qty: 1 on 05/25/2019 by Kaveh Charles MD at [facility] Left: Femur [employer] 03/15/2021 6191- / / [id number] [employer] [id number] Most Ii H14 Mm Rotating Hinge; Segment; Machine Mold Knee B Inser - [id number] Implanted:Qty: 1 on 05/25/2019 by Kaveh Charles MD at [facility] Left: Knee [employer] [id number] 02/12/2025 [id number] / / [id number] [employer] 30-0270-236-96 Xt Knee B Insert Tibial Polyethylene - [id number] Implanted:Qty: 1 on 05/25/2019 by Kaveh Charles MD at [facility] Left: Femur [employer] [id number] 04/15/2027 26-6975-926-9 6 / / [id number] Cmpnt Fem B Knee Left Albert Strl Segmental System - [id number] Implanted:Qty: 1 on 05/25/2019 by Kaveh Charles MD at [facility] Left: Femoral [employer] [id number] 04/15/2027 [id number] / / [id number] [employer]/O rtho 913293 Prep-Im Plug Friendship Sponge Suction Hip Kit Thr Latex Free - [id number] Implanted:Qty: 1 on 05/25/2019 by Kaveh Charles MD at [facility] Left: Femur [employer]/ Ortho [id number] / / [employer] 6191- Simplex P Radiopaque Full Dose Cement Bone Sterile - [id number] Implanted:Qty: 1 on 05/25/2019 by Kaveh Charles MD at [facility] Left: Femur [employer] 01/13/2021 6191- / / [id number] [employer] 91-010 Simplex P Radiopaque Full Dose Cement Bone Sterile - [id number] Implanted:Qty: 1 on 05/25/2019 by Kaveh Charles MD at [facility] Left: Femur [employer] 12/13/2020 6191-010 / / [id number] [employer] [id number] Nexgen 09y28bi Rotating Hinge Knee 2 Plate Tibial Zimaloy Pmma - [id number] Implanted:Qty: 1 on 05/25/2019 by Kaveh Charles MD at [facility] Left: Tibia [employer] [id number] 01/13/2023 [id number] / / [id number] [employer] [id number] 35mm Collar Knee Component Segmental Trabecular Metal 9-16mm Stem - [id number] Implanted:Qty: 1 on 05/25/2019 by Kaveh Charles MD at [facility] Left: Tibia [employer] [id number] 02/12/2023 [id number] / / [id number] [employer] [id number] Nexgen 13mm 130mm Cemented Segmental Knee Femur Straight Flute - [id number] Implanted:Qty: 1 on 05/25/2019 by Kaveh Charles MD at [facility] Left: Tibia [employer] [id number] 09/12/2028 [id number] / / [id number] [employer] Angio-Seal Vip Bondek-Plus 8fr .038in 70cm Hemostatic Latex Free 066974 - [id number] Implanted:Qty: 1 on 08/07/2023 by Mor Riley MD at [facility] [employer] 04/07/2024 [id number] / / [id number] Synthes Dhs/Dcp 174mm 38mm 10 Hole Hip Condyle 130d Standard Barrel Plate 281.010s - [id number] Implanted:Qty: 1 on 12/09/2023 by Homer Villalobos MD at [facility] Left: Femur [employer] [id number] 04/15/2029 281.010S / / [id number] Synthes 4.5mm 8mm 38mm Self Tap Large Hexagonal Socket Cortex Screw Bone 214.838 - [id number] Implanted:Qty: 1 on 12/09/2023 by Homer Villalobos MD at [facility] Left: Femur Synthes 214.838 / / Synthes Dhs Dcs 36mm Compression Hip Condylar Screw Bone Stainless Steel 280.990 - [id number] Implanted:Qty: 1 on 12/09/2023 by Homer Villalobos MD at [facility] Left: Femur Synthes 280.990 / / Synthes 1.7mm 750mm Crimp Cerclage Cable Orthopedic Stainless Steel 298.801.01s - [id number] Implanted:Qty: 1 on 12/09/2023 by Homer Villalobos MD at [facility] Left: Femur [employer] [id number] 09/12/2028 298.801.01S / / [id number] Synthes Dhs Dcs 12mm 8mm 2.7mm 90mm 22mm Lag Cannulated Hip Condylar 280.290 - [id number] Implanted:Qty: 1 on 12/09/2023 by Homer Villalobos MD at [facility] Left: Femur Synthes 280.290 / / Procedures Procedure Name Priority Date/Time Associated Diagnosis Comments SCAN - RADIOLOGY/IMAGING 03/18/2024 EGFR Routine 03/16/2024 8:20 PM ELECTRONIC NEWS GATHERING CAMERA PERSON TROPONIN T HIGH-SENSITIVITY Routine 03/16/2024 8:20 PM ELECTRONIC NEWS GATHERING CAMERA PERSON DIFFERENTIAL AUTO Routine 03/16/2024 8:2 0 PM ELECTRONIC NEWS GATHERING CAMERA PERSON CBC WITH AUTO DIFFERENTIAL Routine 03/16/2024 8:20 PM ELECTRONIC NEWS GATHERING CAMERA PERSON BASIC METABOLIC PANEL Routine 03/16/2024 8:20 PM ELECTRONIC NEWS GATHERING CAMERA PERSON SCAN - RADIOLOGY/IMAGING 02/26/2024 CARDIOLOGY DOCUMENT SCAN Routine 02/17/2024 2:22 PM ELECTRONIC NEWS GATHERING CAMERA PERSON CARDIOLOGY DOCUMENT SCAN Routine 02/15/2024 2:18 PM ELECTRONIC NEWS GATHERING CAMERA PERSON CARDIOLOGY DOCUMENT SCAN Routine 02/14/2024 6:35 PM ELECTRONIC NEWS GATHERING CAMERA PERSON SCAN - RADIOLOGY/IMAGING 02/13/2024 CARDIOLOGY DOCUMENT SCAN 02/12/2024 SCAN - RADIOLOGY/IMAGING 02/11/2024 SCAN - RADIOLOGY/IMAGING 02/10/2024 XR FEMUR LEFT 2 OR MORE VIEWS Schedule Routine, Read Routine (OP Routine) 01/18/2024 2:34 PM ELECTRONIC NEWS GATHERING CAMERA PERSON Closed displaced fracture of left femoral neck (HCC) HEMOGLOBIN A1C Routine 12/09/2023 10:24 PM CDT LIPID PANEL STAT 08/07/2023 2:35 PM CDT ALBUMIN CREATININE RATIO, URINE Routine 02/23/2023 11:01 AM ELECTRONIC NEWS GATHERING CAMERA PERSON Type 2 diabetes mellitus without complication, without long-term current use of insulin (CMS/HCC) (HCC) DIABETES EYE EXAM Routine 12/10/2022 from Last 3 Months or Most Recently Relevant to Health Maintenance Results * SCAN - RADIOLOGY/IMAGING (03/18/2024) Anatomical Region Laterality Modality Other us Cuba Larsen MD Edited Result - Final * (ABNORMAL) Troponin T high-sensitivity (03/16/2024 8:20 PM ELECTRONIC NEWS GATHERING CAMERA PERSON) Trop T hs 18(H) <=14 ng/L Comment: Interpretive Data For further hscTnT resources including the diagnostic algorithm and an aid in interpretation, copy and paste this link: [email or web address].org/[email or web address] Current Interpretive Data last revised 2020. Blood 03/16/2024 8:20 PM ELECTRONIC NEWS GATHERING CAMERA PERSON 03/16/2024 9:10 PM ELECTRONIC NEWS GATHERING CAMERA PERSON us Yves Bailey MD LAB BLOOD ORDERABLES Final R esult [facility] [address] [place] [address] * eGFR (03/16/2024 8:20 PM ELECTRONIC NEWS GATHERING CAMERA PERSON) eGFR 70 >=60 mL/min/1. 73 m2 Comment: [...] last reviewed 2021. Blood 03/16/2024 8:20 PM ELECTRONIC NEWS GATHERING CAMERA PERSON 03/16/2024 9:15 PM ELECTRONIC NEWS GATHERING CAMERA PERSON us Yves Kem Bailey MD LAB BLOOD ORDERABLES Final R esult [facility] [id number] Department [place] [address] * Differential, auto (03/16/2024 8:20 PM ELECTRONIC NEWS GATHERING CAMERA PERSON) Neutrophil abs 5.4 1.5 - 6.5 K/cumm Imm gran abs 0.0 0.0 - 0.1 K/cumm [facility] Lymphocyte abs 1.3 0.8 - 3.3 K/cumm [facility] Monocyte abs 0.8 0.2 - 0.8 K/cumm [facility] Eosinophil abs 0.1 0.0 - 0.5 K/cumm [facility] Basophil abs 0.0 0.0 - 0.1 K/cumm [facility] Neutrophil pct 70.5 % [facility] Comment: Interpretive Data Percent cell count reference ranges are not reported, since discordance with absolute values may lead to misinterpretation of CBC data. Current Interpretive Data was last revised on 2017. Imm gran pct 0.3 % [facility] Comment: Interpretive Data Percent cell count reference ranges are not reported, since discordance with absolute values may lead to misinterpretation of CBC data. Current Interpretive Data was last revised on 2017. Lymphocyte pct 16.7 % [facility] Comment: Interpretive Data Percent cell count reference ranges are not reported, since discordance with absolute values may lead to misinterpretation of CBC data. Current Interpretive Data was last revised on 2017. Monocyte pct 10.8 % [facility] Comment: Interpretive Data Percent cell count reference ranges are not reported, since discordance with absolute values may lead to misinterpretation of CBC data. Current Interpretive Data was last revised on 2017. Eosinophil pct 1.3 % [facility] Comment: Interpretive Data Percent cell count reference ranges are not reported, since discordance with absolute values may lead to misinterpretation of CBC data. Current Interpretive Data was last revised on 2017. Basophil pct 0.4 % [facility] Comment: Interpretive Data Percent cell count reference ranges are not reported, since discordance with absolute values may lead to misinterpretation of CBC data. Current Interpretive Data was last revised on 2017. Blood 03/16/2024 8:20 PM ELECTRONIC NEWS GATHERING CAMERA PERSON 03/16/2024 9:08 PM ELECTRONIC NEWS GATHERING CAMERA PERSON us Yves Kem Bailey MD LAB BLOOD ORDERABLES Final R esult [facility] [address] Department [place] [address] * (ABNORMAL) CBC with auto differential (03/16/2024 8:20 PM ELECTRONIC NEWS GATHERING CAMERA PERSON) [facility] WBC 7.6 3.8 - 9.9 K/cumm Hgb 9.9(L) 11.9 - 15.5 g/dL [facility] Hct 34.0(L) 35.6 - 45.5 % [facility] Plt 409(H) 150 - 400 K/cumm [facility] MPV 9.8 9.1 - 12.3 fL [facility] RBC 3.84(L) 3.90 - 5.20 M/cumm [facility] MCV 88.5 81.3 - 96.4 fL [facility] MCH 25.8(L) 27.1 - 33.3 pg [facility] MCHC 29.1(L) 32.3 - 35.7 g/dL [facility] RDW CV 18.1(H) 11.1 - 14.9 % [facility] RDW SD 58.5(H) 35.7 - 48.1 fL [facility] NRBC abs 0.05(H) 0.00 - 0.01 K/cumm [facility] Blood 03/16/2024 8:20 PM ELECTRONIC NEWS GATHERING CAMERA PERSON 03/16/2024 9:08 PM ELECTRONIC NEWS GATHERING CAMERA PERSON us Yves Kem Bailey MD LAB BLOOD ORDERABLES Final R esult [facility] [address] Department of Laboratories [place], [place] [id number] * (ABNORMAL) Basic metabolic panel (03/16/2024 8:20 PM ELECTRONIC NEWS GATHERING CAMERA PERSON) Pathologist [facility] Sodium 133(L) 135 - 145 mmol/L Potassium, pl 4.3 3.3 - 4.9 mmol/L [facility] Chloride 98 97 - 110 mmol/L [facility] CO2 22 22 - 32 mmol/L [facility] Anion gap 13 2 - 15 mmol/L [facility] BUN 18 6 - 25 mg/dL [facility] Creatinine 0.83 0.60 - 1.10 mg/dL [facility] Glucose 124 70 - 199 mg/dL [facility] Comment: Interpretive Data Fasting glucose >/= 126 [...] 2022. Calcium 9.3 8.5 - 10.3 mg/dL [facility] Blood 03/16/2024 8:20 PM ELECTRONIC NEWS GATHERING CAMERA PERSON 03/16/2024 9:08 PM ELECTRONIC NEWS GATHERING CAMERA PERSON Yves Bailey MD LAB BLOOD ORDERABLES Final R esult [facility] [address] Department [place] [address] * SCAN - RADIOLOGY/IMAGING (02/26/2024) Anatomical Region Laterality Modality Other Cuba Larsen MD Edited Result - Final * Cardiology Document Scan (02/17/2024 2:22 PM ELECTRONIC NEWS GATHERING CAMERA PERSON) Anatomical Region Laterality Modality Other Abhijit Devlin MD CV CARDIAC SERVICES PROCE DURES Final Result * Cardiology Document Scan (02/15/2024 2:18 PM ELECTRONIC NEWS GATHERING CAMERA PERSON) Anatomical Region Laterality Modality Other us Magnolia Rico NP CV CARDIAC SERVICES PROCEDUR ES Final Result * Cardiology Document Scan (02/14/2024 6:35 PM ELECTRONIC NEWS GATHERING CAMERA PERSON) Anatomical Region Laterality Modality Other Catarino Ramirez MD CV CARDIAC SERVICES PROCEDU RES Final Result * SCAN - RADIOLOGY/IMAGING (02/13/2024) Anatomical Region Laterality Modality Other Cuba Larsen MD Edited Result - Final * Cardiology Document Scan (02/12/2024) Anatomical Region Laterality Modality Other Cuba Larsen MD CV CARDIAC SERVICES PROCEDURE S Final Result * SCAN - RADIOLOGY/IMAGING (02/11/2024) Anatomical Region Laterality Modality Other Result [facility] Cuba Larsen MD Edited Result - Final * SCAN - RADIOLOGY/IMAGING (02/10/2024) Anatomical Region Laterality Modality Other Result [facility] Cuba Larsen MD Edited Result - Final * XR Femur Left 2 or More Views (01/18/2024 2:34 PM ELECTRONIC NEWS GATHERING CAMERA PERSON) Anatomical Region Laterality Modality Lower Extremities, Thigh, Femur Left Computed Radiography 01/18/2024 2:47 PM ELECTRONIC NEWS GATHERING CAMERA PERSON Impressions 01/18/2024 2:47 PM ELECTRONIC NEWS GATHERING CAMERA PERSON 1. ??Healing internally fixated left femur intertrochanteric fracture. Electronically signed by: Rayray Matthews MD Narrative 01/18/2024 2:47 PM ELECTRONIC NEWS GATHERING CAMERA PERSON EXAMINATION: XR FEMUR LEFT 2 OR MORE [...] fracture. Electronically signed by: Rayray Matthews MD Result [facility] Homer Villalobos MD IMG XR PROCEDURE S [...] NP LAB BLOOD ORDERABLES F inal Result [facility] [address] [facility] Department [place] [address] * (ABNORMAL) Lipid panel (08/07/2023 2:35 PM [...] on 2017. HDL 32(L) >=40 mg/dL [facility] Comment: Interpretive Data Ages < or [...] 2017. LDL, calculated 33 <=129 mg/dL [facility] Comment: Interpretive Data Ages < or [...] revised on 2017. Non-HDL Cholesterol 62 mg/dL [facility] Comment: Interpretive Data Ages < or [...] last revised on 2017. Chol/HDL ratio 3 [facility] Blood 08/07/2023 2:35 PM CDT 08/07/2023 2:51 PM CDT Parris Celestin SERVICE DELIVERY ANALYST LAB BLOOD ORDERABLES Sri davalos Result [facility] [address] [facility] [place] [address] * Albumin Creatinine Ratio, Urine (02/23/2023 11:01 AM ELECTRONIC NEWS GATHERING CAMERA PERSON) Creatinine, ur 94 20 - 275 mg/dL [...] diagnostic category. Urine 02/23/2023 11:0 1 AM ELECTRONIC NEWS GATHERING CAMERA PERSON 02/23/2023 11:01 AM ELECTRONIC NEWS GATHERING CAMERA PERSON Cuba Larsen MD LAB URINE ORDERABLES Final Re sult [facility] [address] [place] [address] * DIABETES EYE EXAM (12/10/2022) Historical Provider HEALTH MAINTENANCE Final Result from Last 3 Months or Most Recently Relevant to Health Maintenance Insurance [facility] Member Subscriber Plan / Payer (Ef fective 2018-Present) Name:Prema Pearce Relation to Subscriber:Self Name:Prema Pearce Payer ID:[id number] (NAIC) Type:MEDICARE RISK OTHER Address: [address] [facility] Member Subscriber Plan / Payer (Ef fective 2023-Present) Name:Prema Pearce Relation to Subscriber:Self Name:Prema Pearce Payer ID:[id number] (NAIC) Type:MEDICARE RISK OTHER Address: [address] [facility] Advance Directives For more information, please contact: [phone] Documents on File Type Date Recorded Patient Training Development Specialist Expl anation ADVANCE DIRECTIVE 12/11/2023 12:06 PM NUHA R OF DIRECTOR OF GRANTS-MEDICAL ADVANCE DIRECTIVE 10/27/2019 8:48 AM Power of Division Officer Weapons Department-Medical ADVANCE DIRECTIVE 10/27/2019 8:47 AM Power of Division Officer Weapons Department-Medical * LIMITED - No CPR (Latest Code [...] Elio Santana Health Care Agent Care Teams Manager Privacy Relationship Specialty Start Date End Date Cuba Larsen MD PCP - General Family Medicine 01/23/22 Chris Mendes MD Referring Physician Cardiology 12/23/21 Keli Orozco, loss prevention coordinator Failure Coordinator Transplant 04/15/23 Tmai Mcknight loss prevention coordinator Failure Coordinator Cardiology 09/14/23
--- OUTSIDE RECORDS SUMMARY | 2024-03-25 10:55 | XMS_ITS | Encounter Summary ---
Author Organization [facility] Healthcare Address [address] [place] [address] Care Team Providers Care Order To Delivery Supervisor Name Role Phone Chris Mendes MD Unavailable [phone] Cuba Larsen MD Primary Care Provider [phone] Keli Orozco RN Unavailable Unavailable Tami Mcknight RN Unavailable Unavailab le Encounter Details Date Type Department Care Team (Late st Contact Info) Description 02/18/2024 Orders Only [facility] Medical Group Cardiology [address] [place] [address] Magnolia Rico NP [address] [place] [address] Social History Tobacco Use Types [...] on file Legal Sex Female 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 Gender Identity Not on file Sexual Orientation Not on file documented as of this encounter Plan of Treatment Not on file documented as of this encounter Procedures Procedure Name Priority Date/Time Associated Diagnosis Comments CARDIOLOGY DOCUMENT SCAN Routine 02/17/2024 2:22 PM SHIP CLEANER CARDIOLOGY DOCUMENT SCAN Routine 02/15/2024 2:18 PM SHIP CLEANER documented in this encounter Results * Cardiology Document Scan (02/17/2024 2:22 PM SHIP CLEANER) Anatomical Region Laterality Modality Other us Abhijit Devlin MD CV CARDIAC SERVICES PROCE DURES Final Result * Cardiology Document Scan (02/15/2024 2:18 PM SHIP CLEANER) Anatomical Region Laterality Modality Other us Magnolia Rico NP CV CARDIAC SERVICES PROCEDUR ES Final Result documented in this encounter Visit Diagnoses Not on filedocumented in this encounter Care Teams Order To Delivery Supervisor Relationship Specialty Start Date End Date Cuba Larsen MD PCP - General Family Medicine 01/23/22 Chris Mendes MD Referring Physician Cardiology 12/23/21 Keli Orozco, trademark affixer Failure Coordinator Transplant 04/15/23 Tami Mcknight, trademark affixer Failure Coordinator Cardiology 09/14/23 documented as of this encounter
--- OUTSIDE RECORDS SUMMARY | 2024-03-25 10:55 | XMS_ITS | Encounter Summary ---
Author Organization [facility] Healthcare Address [address] [place] [address] Care Team Providers Care Line Repairer Tower Name Role Phone Chris Mendes MD Unavailable Cuba Larsen MD Primary Care Provider [phone] Keli Orozco RN Unavailable Unavailable Tami Mcknight RN Unavailable Unavailab le Encounter Details Date Type Department Care Team (Late st Contact Info) Description 02/15/2024 Orders Only [facility] Medical Group Cardiology [address] [place] [address] Catarino Ramirez MD [address] [place] [address] Social History Tobacco Use Types Packs/Day Years [...] on file Legal Sex Female 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 LITHOGRAPH DESIGNER Gender Identity Not on file Sexual Orientation Not on file documented as of this encounter Plan of Treatment Not on file documented as of this encounter Procedures Procedure Name Priority Date/Time Associated Diagnosis Comments CARDIOLOGY DOCUMENT SCAN Routine 02/14/2024 6:35 PM LITHOGRAPH DESIGNER documented in this encounter Results * Cardiology Document Scan (02/14/2024 6:35 PM LITHOGRAPH DESIGNER) Anatomical Region Laterality Modality Other us Catarino Ramirez MD CV CARDIAC SERVICES PROCEDU RES Final Result documented in this encounter Visit Diagnoses Not on filedocumented in this encounter Care Teams Line Repairer Tower Relationship Specialty Start Date End Date Cuba Larsen MD PCP - General Family Medicine 01/23/22 Chris Mendes MD Referring Physician Cardiology 12/23/21 Keli Orozco, head banquet waiter/waitress Failure Coordinator Transplant 04/15/23 Tami Mcknight, head banquet waiter/waitress Failure Coordinator Cardiology 09/14/23 documented as of this encounter
--- OUTSIDE RECORDS SUMMARY | 2024-03-25 10:56 | XMS_ITS | Encounter Summary ---
Author Organization [facility] Healthcare Address [address] [place] [address] Care Team Providers Care Re Etcher Name Role Phone Chris Mendes MD Unavailable [phone] Cuba Larsen MD Primary Care Provider [phone] Keli Orozco RN Unavailable Unavailable Tami Mcknight RN Unavailable Unavailab le Reason for Visit * Reason Onset Date Comments Medical Question/Miscellaneous 12/25/2023 Encounter Details Date Type Department Care Team (Late st Contact Info) Description 12/25/2023 Telephone [facility] Medical Group Family Medicine at [address] [place] [address] Cuba Larsen MD [address] [place] [id number] Medical Question/Miscellaneous Social History Tobacco Use Types [...] on file 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 Larsen cannot really do anything for patient, but once she is ready for discharge social worker assistant will get involved and then make plan for discharge. Patient doesn'treally know if she will be able to be discharged or not, informed to ask for social worker assistant now so they can start looking at [...] needs to talk to a social worker assistant now. She feel as though she needs to start making plans now. Could someone please call her back? Does message need to be routed? Yes-Action Needed documented in this encounter Plan of Treatment Not on file documented as of this encounter Visit Diagnoses Not on filedocumented in this encounter Care Teams Re Etcher Relationship Specialty Start Date End Date Rawdon, Cuba P., MD PCP - General Family Medicine 01/23/22 Chris Mendes MD Referring Physician Cardiology 12/23/21 Keli Orozco, hull molder Failure Coordinator Transplant 04/15/23 Tami Mcknight, hull molder Failure Coordinator Cardiology 09/14/23 documented as of this encounter
--- OUTSIDE RECORDS SUMMARY | 2024-03-25 10:56 | XMS_ITS | Encounter Summary ---
Author Organization [facility] Healthcare Address [address] [place] [address] Care Team Providers Care Hydraulic Jack Operator Name Role Phone Chris Mendes MD Unavailable Cuba Larsen MD Primary Care Provider [phone] Keli Orozco RN Unavailable Unavailable Tami Mcknight RN Unavailable Unavailab le Reason for Referral * Diagnostic Imaging (Routine) - Closed Specialty Diagnoses / Procedures Referred By Contac t Referred To Contact Diagnoses Closed displaced fracture of left femoral neck (HCC) Procedures XR Femur Left 2 or More Views Homer Villalobos MD [address] [facility] [place] [address] Phone: tel: fax: [address] [address] Referral ID Status Reason Start Date Expiration Date Visits Re quested Visits Authorized [id number] Closed 01/14/2024 02/12/2025 1 1 GER ONCOLOGY Reason for Visit * Diagnostic Imaging (Routine) - Closed Specialty Diagnoses / Procedures Referred By Contac t Referred To Contact Diagnoses Closed displaced fracture of left femoral neck (HCC) Procedures XR Femur Left 2 or More Views Homer Villalobos MD [address] [facility] 6A/6B/12[address] [place] [address] Phone: tel: fax: [facility] [address] [facility] [place] [address] Referral ID Status Reason Start Date Expiration Date Visits Re quested Visits Authorized [id number] Closed 01/14/2024 02/12/2025 1 1 Encounter Details Date Type Department Care Team (Latest Contact Info) Description 01/18/2024 2:00 PM MANAGER ONCOLOGY - 01/18/2024 11:59 PM MANAGER ONCOLOGY Hospital Encounter [facility] [address] [place] [address] Closed displaced fracture of left femoral neck [...] file Legal Sex Female 4:20 AM MANAGER ONCOLOGY Gender Identity Not on file Sexual Orientation [...] complication, without long-term current use of insulin ([facility]) ([facility]) One strip daily to check glucose 100 each 1 03/19/2023 blood-glucose meter miscIndications: Type 2 diabetes mellitus without complication, without long-term current use of insulin ([facility]) ([facility]) Use daily [...] complication, without long-term current use of insulin ([facility]) ([facility]) 1 each by other route daily 100 [...] mouth daily as needed for constipation 12/16/2023 10/02/202 5 spironolactone (ALDACTONE) 50 mg tablet Take [...] Read Routine (OP Routine) 01/18/2024 2:34 PM MANAGER ONCOLOGY Closed displaced fracture of left femoral neck (HCC) documented in this encounter Results * XR Femur Left 2 or More Views (01/18/2024 2:34 PM MANAGER ONCOLOGY) Anatomical Region Laterality Modality Lower Extremities, Thigh, Femur Left Computed Radiography 01/18/2024 2:47 PM MANAGER ONCOLOGY Impressions 01/18/2024 2:47 PM MANAGER ONCOLOGY 1. ??Healing internally fixated left femur intertrochanteric fracture. Electronically signed by: Rayray Matthews MD Narrative 01/18/2024 2:47 PM MANAGER ONCOLOGY EXAMINATION: XR FEMUR LEFT 2 OR MORE [...] (HCC) documented in this encounter Care Teams Hydraulic Jack Operator Relationship Specialty Start Date End Date Cuba Larsen MD PCP - General Family Medicine 01/23/22 Chris Mendes MD Referring Physician Cardiology 12/23/21 Keli Orozco, advanced manufacturing associate Failure Coordinator Transplant 04/15/23 Tami Mcknight, advanced manufacturing associate Failure Coordinator Cardiology 09/14/23 documented as of this encounter
--- OUTSIDE RECORDS SUMMARY | 2024-03-25 10:56 | XMS_ITS | Encounter Summary ---
Author Organization [facility] Address [address] [place] [address] Phone Care Team Providers Care Epic Ambulatory Specialists Name Role Phone Chris Mendes MD Unavailable [phone] Cuba Larsen MD Primary Care Provider [phone] Keli Orozco RN Unavailable Unavailable Tami Mcknight RN Unavailable Unavailab le Reason for Referral * Diagnostic Imaging (Routine) - Closed Specialty Diagnoses / Procedures Referred By Contac t Referred To Contact Diagnoses Closed displaced fracture of left femoral neck (HCC) Procedures XR Femur Left 2 or More Views Homer Villalobos MD [address] [facility] [place] [address] Phone: tel: fax: [address] [address] Referral ID Status Reason Start Date Expiration Date Visits Re quested Visits Authorized [id number] Closed 01/14/2024 02/12/2025 1 1 Reason for Visit * Consultation (Routine) - Authorized Specialty Diagnoses / Procedures Referred By Contact Referred To Contact Orthopedic Surgery Diagnoses Open intertrochanteric fracture of left femur, sequela Cuba Larsen MD [address] [facility] [address] [place], [place] [address] Phone: tel:[phone] fax:[phone] [facility] (All Locations) Referral ID Status Reason Start Date Expiration Date Visits Requested Visits Authorized [id number] Authorized Specialty Services Required 01/15/2024 01/13/2025 12 12 Encounter Details Date Type Department Care Team (Late st Contact Info) Description 01/18/2024 2:15 PM SUPERVISOR BOILERMAKING SHOP Office Visit [facility] Orthopaedic Surgery [address] [facility] 6th [place] [address] Homer Villalobos MD [address] [facility] [address] Closed displaced fracture of left femoral neck [...] file 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BOILERMAKING SHOP Gender Identity Not on file Sexual [...] Dobbins MD Department of Orthopaedic Surgery, PGY-2 [facility] in [place] Cosigned by Homer Villalobos MD at 01/19/2024 8:31 AM SUPERVISOR BOILERMAKING SHOP RVISOR BOILERMAKING SHOP RVISOR BOILERMAKING SHOP Associated attestation - Homer Villalobos MD - 01/19/2024 8:31 AM SUPERVISOR BOILERMAKING SHOP I have seen and examined the patient. [...] 2 or More Views (01/18/2024 2:34 PM SUPERVISOR BOILERMAKING SHOP) Anatomical Region Laterality Modality Lower Extremities, Thigh, Femur Left Computed Radiography 01/18/2024 2:47 PM SUPERVISOR BOILERMAKING SHOP Impressions 01/18/2024 2:47 PM SUPERVISOR BOILERMAKING SHOP 1. ??Healing internally fixated left femur intertrochanteric fracture. Electronically signed by: Rayray Matthews MD Narrative 01/18/2024 2:47 PM SUPERVISOR BOILERMAKING SHOP EXAMINATION: XR FEMUR LEFT 2 OR MORE [...] 2023 documented in this encounter Care Teams Epic Ambulatory Specialists Relationship Specialty Start Date End Date Cuba Larsen MD PCP - General Family Medicine 01/23/22 Chris Mendes MD Referring Physician Cardiology 12/23/21 Keli Orozco, audit tech Failure Coordinator Transplant 04/15/23 Tami Mcknight, audit tech Failure Coordinator Cardiology 09/14/23 documented as of this encounter
--- OUTSIDE RECORDS SUMMARY | 2024-03-25 10:56 | XMS_ITS | Encounter Summary ---
Author Organization [facility] Healthcare Address [address] [place] [address] Care Team Providers Care Sheriff Officer Name Role Phone Chris Mendes MD Unavailable [phone] Cuba Larsen MD Primary Care Provider [phone] Keli Orozco RN Unavailable Unavailable Tami Mcknight RN Unavailable Unavailab le Reason for Visit * Reason Onset Date Comments 1st no show letter sent 01/05/24 01/05/2024 Encounter Details Date Type Department Care Team (Late st Contact Info) Description 01/05/2024 Telephone [facility] Medical Group Family Medicine at [address] [place] [address] Cuba Larsen MD [address] [place] [id number] 1st no show letter sent 01/05/24 Social [...] on file 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 She is currently admitted to a senior living for physical therapy. Does message need to be routed? Yes-FYI Only * Telephone Encounter - Nakita Mustafa - 01/05/2024 12:49 PM CDT 1st no show letter sent 01/05/24 documented in this encounter Plan of Treatment Not on file documented as of this encounter Visit Diagnoses Not on filedocumented in this encounter Care Teams Sheriff Officer Relationship Specialty Start Date End Date Cuba Larsen MD PCP - General Family Medicine 01/23/22 Chris Mendes MD Referring Physician Cardiology 12/23/21 Keli Orozco, radio station manager Failure Coordinator Transplant 04/15/23 Tami Mcknight RN Heart Failure Coordinator Cardiology 09/14/23 documented as of this encounter
--- OUTSIDE RECORDS SUMMARY | 2024-03-25 10:56 | XMS_ITS | Encounter Summary ---
Author Organization [facility] Healthcare Address [address] [place] [address] Care Team Providers Care Hunter Trapper Name Role Phone Chris Mendes MD Unavailable [phone] Cuba Larsen MD Primary Care Provider [phone] Keli Orozco RN Unavailable Unavailable Tami Mcknight RN Unavailable Unavailab le Reason for Visit * Reason Onset Date Comments Referral Request 01/15/2024 Encounter Details Date Type Department Care Team (Late st Contact Info) Description 01/15/2024 Telephone [facility] Medical Group Family Medicine at [address] [place] [address] Cuba Larsen MD [address] [place] [address] Referral Request Social History Tobacco Use [...] on file 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 * Telephone Encounter - Maryann James - 01/15/2024 12:23 PM CDT Referral Provider Name: Dr. Homer Villalobos Specialty: Orthopedic Address: [address] [place] [address], Zip: [place] [address] Diagnosis Code/Symptom/Reason Patient is being seen: S72.142 Date of Appointment: 01/17/2024 NPI#: [id number] Tax ID#: [id number] Is insurance in chart up to date? Yes, [employer] Additional Comments: none Does message need to be routed? Yes-Action Needed documented in this encounter Plan of Treatment Not on file documented as of this encounter Visit Diagnoses Not on filedocumented in this encounter Care Teams Hunter Trapper Relationship Specialty Start Date End Date Cuba Larsen MD PCP - General Family Medicine 01/23/22 Chris Mendes MD Referring Physician Cardiology 12/23/21 Keli Orozco, diver assistant Failure Coordinator Transplant 04/15/23 Tami Mcknight, diver assistant Failure Coordinator Cardiology 09/14/23 documented as of this encounter
--- OUTSIDE RECORDS SUMMARY | 2024-03-25 10:56 | XMS_ITS | Encounter Summary ---
Author Organization [facility] Address [address] [place] [address] Phone Care Team Providers Care Personal Banking Advisor Name Role Phone Chris Mendes MD Unavailable Cuba Larsen MD Primary Care Provider Keli Orozco RN Unavailable Unavailable Tami Mcknight RN Unavailable Unavailab le Reason for Visit * Reason Onset Date Comments Scheduling Appointments 01/04/2024 Encounter Details Date Type Department Care Team (Late st Contact Info) Description 01/04/2024 Telephone [facility] Scheduling [address] [place], [place] [id number] Gilda Hollingsworth, [facility] [address] [facility] [address] [place] [address] Scheduling Appointments Social History Tobacco Use Types [...] on file 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 Gender Identity Not on file Sexual Orientation Not on file documented as of this encounter Miscellaneous Notes * Telephone Encounter - Jo Ann Anders - 01/04/2024 12:49 PM CDT Lvm to confirm nov appt documented in this encounter Plan of Treatment Not on file documented as of this encounter Visit Diagnoses Not on filedocumented in this encounter Care Teams Personal Banking Advisor Relationship Specialty Start Date End Date Cuba Larsen MD PCP - General Family Medicine 01/23/22 Chris Mendes MD Referring Physician Cardiology 12/23/21 Keli Orozco, billboard installer Failure Coordinator Transplant 04/15/23 Tami Mcknight RN Heart Failure Coordinator Cardiology 09/14/23 documented as of this encounter
--- OUTSIDE RECORDS SUMMARY | 2024-03-25 10:56 | XMS_ITS | Encounter Summary ---
Author Organization [facility] Address [address] [place] [address] Care Team Providers Care Software Applications Specialist Name Role Phone Chris Sanchez MD Unavailable [phone] Cuba Larsen MD Primary Care Provider Keli Orozco RN Unavailable Unavailable Tami Mcknight RN Unavailable Unavailab le Reason for Referral * Consultation (Routine) - Authorized Specialty Diagnoses / Procedures Referred By Indra t Referred To Contact Cardiology Diagnoses Mitral valve prolapse Cuba Larsen MD [address] [address] Phone: tel: fax: [place] [address] [place] [address] Phone: tel: fax: Referral ID Status Reason Start Date Expiration Date Visits Requested Visits Authorized [id number] Authorized Specialty Services Required 01/23/2025 12 12 Question Answer Please select the performing region: [facility] (All Locations) [167] Is this referral for the Val[facility]? No To provider: CHRIS SANCHEZ [[id number]] # of visits: 1 P STITCHER Reason for Visit * Reason Onset Date Comments Referral Request 01/19/2024 Encounter Details Date Type Department Care Team (Late st Contact Info) Description 01/19/2024 Telephone [facility] Family Medicine at [address] [place] [address] Cuba Larsen MD [facility] [address] [address] Referral Request Social History Tobacco Use Types [...] on file Legal Sex Female 4:20 AM STRAP STITCHER Gender Identity Not on file Sexual Orientation Not on file documented as of this encounter Miscellaneous Notes * Telephone Encounter - Carly Paredes MA - 01/19/2024 2:03 PM CST Referral in [facility] P STITCHER * Telephone Encounter - Megan Browning - 01/19/2024 1:56 PM CST Referral Provider Name: Dr. Chris Sanchez Specialty: Cardiology Address: [address] [place] [address], Zip: [address] Diagnosis Code/Symptom/Reason Patient is being seen: I34.1 Date of Appointment: 02/01/24 NPI#: [id number] Tax ID#: [id number] Is insurance in chart up to date? Yes Additional Comments: - Does message need to be routed? Yes-Action Needed P STITCHER documented in this encounter Plan of Treatment Scheduled Referrals Name Type Priority Associated Diagnoses Order Schedule Ambulatory referral to Cardiology Outpatient Referral Routine Mitral valve prolapse 1 Occurrences starting 01/19/2024 until 07/18/2024 documented as of this encounter Visit Diagnoses Diagnosis Mitral valve prolapse- Primary Mitral valve disorders documented in this encounter Care Teams Software Applications Specialist Relationship Specialty Start Date End Date Cuba Larsen MD PCP - General Family Medicine 01/23/22 Chris Sanchez MD Referring Physician Cardiology 12/23/21 Keli Orozco, mat sewer Failure Coordinator Transplant 04/15/23 Tami Mcknight, mat sewer Failure Coordinator Cardiology 09/14/23 documented as of this encounter
--- OUTSIDE RECORDS SUMMARY | 2024-03-25 10:57 | XMS_ITS | Encounter Summary ---
Author Organization [facility] Address [address] [place] [address] Phone Care Team Providers Care Herpetologist Name Role Phone Chris Mendes MD Unavailable [phone] Cuba Larsen MD Primary Care Provider [phone] Keli Orozco RN Unavailable Unavailable Tami Mcknight RN Unavailable Unavailab le Reason for Referral * Consultation (Routine) - Closed Specialty Diagnoses / Procedures Referred By Contac t Referred To Contact Bone Health Diagnoses Closed nondisplaced intertrochanteric fracture of left femur, initial encounter ([facility]) Homer Villalobos MD [address] [facility] [place] [address] Phone: tel: fax: [facility] (All Locations) Referral ID Status Reason Start Date Expiration Date V isits Requested Visits Authorized [id number] Closed Specialty Services Required 12/09/2023 01/07/2025 1 1 Question Answer Please select the performing region: [facility] (All Locations) [167] # of visits: 1 Comments Fall resulting in L IT fx Encounter Details Date Type Department Care Team (Late st Contact Info) Description 12/09/2023 Orders Only [facility] Orthopaedic Surgery [address] [facility] 6[address] [place] [address] [place] [address] Homer Villalobos MD [address] 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
--- OUTSIDE RECORDS SUMMARY | 2024-03-25 10:57 | XMS_ITS | Encounter Summary ---
Author Organization [facility] Healthcare Address [address] [place] [address] Care Team Providers Care Authorizer Name Role Phone Chris Mendes MD Unavailable [phone] Cuba Larsen MD Primary Care Provider [phone] Keli Orozco RN Unavailable Unavailable Tami Mcknight [...] Expiration Date Visits Re quested Visits Authorized [id number] 1 1 Encounter Details Date Type Department Care Team (Latest Contact Info) Description 12/08/2023 11:19 AM CDT - 12/16/2023 6:50 PM CDT Hospital Encounter [facility] [address] [place] [address] Steve Huber MD [address] [facility] [address] [place] [address] Dick Nova MD [address] [place] [address] Adonay Douglas MD [address] [place] [address] Kevin Corrigan MD [address] [facility] [phone] [place] [address] Closed displaced fracture of left femoral neck [...] on file 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 [facility] Geriatric Trauma Service Inpatient Discharge Summary [...] scheduled Check BMP in [address] [facility] Followup with your primary care doctor for ongoing management of your chronic medical issues - [facility] has a primary care clinic that may be able to help if you don't have a primary care doctor - call [phone] to see if they can establish care. Hospital Course: Hyponatremia Assessment & Plan 12/14 Na 128, started PO tablets 12/15 Na 129 - Recheck BMP at [facility] in 1 week Acute blood [...] in admissions tab [facility] Discharge planning issues Assessment & Plan [...] Hgb stable at 7.7 (7.7), DC to [facility] Treatment Plan: done 12/15 Closed nondisplaced [...] Type 2 diabetes mellitus without complications (CMS/HCC) ([facility]) Assessment & Plan Continue DM diet with SSI Holding home glipizide and metformin A1C 6.5 Acquired hypothyroidism Assessment & Plan Continue home levothyroxine Paroxysmal atrial fibrillation (CMS/[facility]) ([facility]) Assessment & Plan Holding home eliquis and Carvedilol 12/10 A fib controlled HR 100s, restarting Coreg 12.5 mg PO BID (home dose 50 mg PO BID) CTM 12/11 HR 90s a fib rate controlled, continue Coreg 25 mg PO BID 12/13 remains rate controlled 90s, continue Coreg 25 mg PO BID Follow up scheduled: [facility] Cardiology 01/31 at 1:20 Operative Procedures Performed: OPEN REDUCTION INTERNAL FIXATION LEFT INTERTROCHANTERIC FEMUR FRACTURE (Left: Lower Extremity) Left Heart Catheterization With Coronary Angiography And With Or Without Left Ventriculogram [id number] Discharge Physical Exam: Discharge Condition: fair Pulse: [...] oral, 2 times daily Commonly known as: [place] blood-glucose meter misc Use daily or as [...] has been made for you to the [facility] Division of Bone and Mineral Healthto assess your risk of bone disease and fracture. They will contact you to schedule an appointment;if you prefer to call them to schedule please call [phone]. For Follow Up Call [facility] at [phone] Follow up Future Appointments Date Time Provider Department Center 01/05/2024 11:45 AM Cuba Larsen MD [facility] 210 PC 01/18/2024 2:15 PM Homer Villalobos MD [facility] 6A OS 01/26/2024 9:30 AM Gilda Hollingsworth, [facility] 40 NL 02/01/2024 1:20 PM Chris Mendes MD [facility]8B Cardiology 03/07/2024 2:15 PM Cuba Larsen MD [facility] 210 PC 04/15/2024 1:00 PM Araceli Salcedo MD [facility] CAM 6C NL All care plans discussed with rounding/operative attending: Moises Allen MD I spent 30 minutes completing this hospital discharge. Danette Causey NP 12/16/23 CC: Cuba Larsen MD Cosigned by Abhjiit Allen DO at 12/16/2023 11:38 AM CDT [...] Applications are available for download from the [place] and [place] DMV websites or from your dedicated local truck driver's license facility. Also, our medical [...] Laws vary state by state; but in [place] and [place] there are no laws prohibiting driving after orthopedic surgery. If you are involved in a car accident, law enforcement will determine your ability to drive on a [id number] basis. Please check your own state laws if driving outside of [place] or [place]. Some insurance companies may have policies restricting [...] refills between visits, call the staff at [phone] between 8:00 am and 4:00 pm, Thursday [...] please give our office a call at [phone]. Dr. Pearce, Dr. Villalobos, Dr. Vora and Dr. Guanakito Lopez have a team of Medical Assistants and Nurses that can be reached at [phone]. They can help answer questions, address concerns, [...] 2 (two) times a day 60 tablet 08/11/2023 blood glucose diagnostic (glucose blood) stripIndications :Type 2 diabetes mellitus without complication, without long-term current use of insulin ([facility]) ([facility]) One strip daily to check glucose 100 each 03/19/2023 blood-glucose meter miscIndications: Type 2 diabetes mellitus without complication, without long-term current use of insulin ([facility]) ([facility]) Use daily or as directed for monitoring [...] complication, without long-term current use of insulin ([facility]) ([facility]) 1 each by other route daily 100 [...] Departure Means Destination Comment s Discharge to [facility] TR documented in this encounter Progress Notes * Molly Gerber, ARMANI - 12/16/2023 11:53 AM CDT 12/16/23 1149 Discharge Summary Discharge Disposition correction facility (short term care) Specify Facility [facility] Contact Number [phone]; fax: [phone] Facility Attending Name Yves Bailey Discharge Records Transfer Form Completed Recommended Discharge Level of Care correction facility (short term care) Actual Discharge Level of Care correction facility (short term care) Does Actual Level of Care Match Care Team Recommendation? Yes Post Acute Care Plan Home Care Services N/A OP Services N/A DME N/A Post Acute Care Facility Yes Referral Status Accepted Accepted Post Acute Care Location and Contact Summer Osei [phone]- Aydee is contact Accepted Post Acute Care Discharge Additional Assistance Does the patient need discharge transport arranged? Yes Type of Transportation Ambulance/EMS Has discharge transport been arranged? Yes Details of Transportation Dapt [phone] trip # [phone] D/C Transport Anticipated Date 12/16/23 D/C Transport [...] is TBD. Transportation will be provided by [employer] ([phone]) trip # [phone]. Patient and family are agreeable with the plan. If any further discharge needs arise, please contact the covering senior case manager. * Geovanna Villalta OT - 12/15/2023 12:36 [...] not assigned to this patient, please call [phone]. 12/15/23 1238 General Session Type Treatment OT Received On [...] training;Functional transfer training;Therapeutic activity;Strengthening;Therapeutic exercise;Transfer traini ng OT Equipment Recommended Wheeled walker Progress during [...] - Patient will perform toilet transfer to/from [facility] with Cyrus 12/11/23 12/18/23 -- Problem: OT Misc Start Date: 12/11/23 Goal Start Date Expected End Date End Date OT LTG - Pt will complete standing ADLs and functional transfers with SPV. 12/11/23 01/01/24 -- * Parris Soto, LM - 12/15/2023 11:19 AM CDT Images from the original note were not included. [facility] Geriatric Trauma Service OU Daily Progress [...] Motion sickness NSTEMI (non-ST elevated myocardial infarction) ([facility]/HCC) (HCC) Obesity AYAD on CPAP Patellar [...] in admissions tab [facility] Discharge planning issues Assessment & Plan [...] PO Type 2 diabetes mellitus without complications ([facility]/HCC) ([facility]) Assessment & Plan Continue DM diet with SSI Holding home glipizide and metformin A1C 6.5 Acquired hypothyroidism Assessment & Plan Continue home levothyroxine Paroxysmal atrial fibrillation ([facility]) ([facility]) Assessment & Plan Holding home eliquis and Carvedilol 12/10 A fib controlled HR 100s, restarting Coreg 12.5 mg PO BID (home dose 50 mg PO BID) CTM 12/11 HR 90s a fib rate controlled, continue Coreg 25 mg PO BID 12/13 remains rate controlled 90s, continue Coreg 25 mg PO BID Follow up scheduled: [facility] Cardiology 01/31 at 1:20 Lines/Drains/Tubes: PIV DVT Prophylaxis: Lovenox Diet: Adult Diet Restricted; Consistent Carbohydrate Activity: WBAT GI Prophylaxis: none Code Status: LIMITED - No CPR Total time spent included the following activities caring for this patient: Patient chart review, Reviewing/obtaining history, Examination and evaluation, Counseling/educating patient/family/caregiver, Ordering medications/tests/procedures, Referring & communicating with other health day care center director, Documenting clinical information in the health record, [...] treatment team and contact the PT or GROUP WORK PROGRAM AIDE currently assigned to this patient. If a physical therapy clinician is not assigned to this patient, please call [phone]. 12/15/23 1008 PT Last Visit Session Type [...] Supine-Exercise Type Ankle pumps;Quad sets;Glut sets Reps/Sets 20/ Supine-Motion AROM;Isometric Supine-Exercise Comments Supine warm up [...] < > 0.63 0.63 < > 0.63 [id number] mL/min/1.73 m2 89 < > 89 89 [...] of Weight Used for Estimated Protein : [place] Dietary Orders (From admission, onward) Start Ordered 12/14/23 1316 Adult Diet Restricted; Consistent Carbohydrate Diet effective now Comments: Skim milk with meals Question Answer Comment ([facility]) Diet type Restricted Diabetic: Consistent Carbohydrate 12/14/23 1319 12/10/23 1700 Oral Nutrition Supplements ([facility]) Select Supplement: Ensure Plus - Chocolate All Meals Question: ([facility]) Select Supplement: Answer: Ensure Plus - Chocolate [...] intake, Stool patterns Ehsan Mallory RD LD [phone]. Weekends [phone] * Geovanna Villalta OT - 12/14/2023 9:18 [...] not assigned to this patient, please call [phone]. 12/14/23 0918 General Session Type Treatment OT [...] - Patient will perform toilet transfer to/from [facility] with Cyrus 12/11/23 12/18/23 -- Problem: OT Misc Start Date: 12/11/23 Goal Start Date Expected End Date End Date OT LTG - Pt will complete standing ADLs and functional transfers with SPV. 12/11/23 01/01/24 -- * Parris Soto NP - 12/14/2023 9:14 AM CDT Images from the original note were not included. [facility] Ger[facility] Trauma Service OU Daily Progress [...] Q6H, Noel Islas MD, 1,000 mg at 12/14/23607 ALPRAZolam (XANAX) tablet 0.5 mg, 0.5 mg, [...] MISHA, Emy Sanchez NP, 4 Units at 09/30/24 0818 levothyroxine (SYNTHROID) tablet 50 mcg, 50 [...] Motion sickness NSTEMI (non-ST elevated myocardial infarction) ([facility]/HCC) ([facility]) Obesity AYAD on CPAP Patellar sleeve fracture [...] and updated in admissions tab Home pharmacy [facility] Discharge planning issues Assessment & Plan [...] BID Type 2 diabetes mellitus without complications ([facility]/HCC) ([facility]) Assessment & Plan Continue DM diet with SSI Holding home glipizide and metformin A1C 6.5 Acquired hypothyroidism Assessment & Plan Continue home levothyroxine Paroxysmal atrial fibrillation ([facility]) ([facility]) Assessment & Plan Holding home eliquis and Carvedilol 12/10 A fib controlled HR 100s, restarting Coreg 12.5 mg PO BID (home dose 50 mg PO BID) CTM 12/11 HR 90s a fib rate controlled, continue Coreg 25 mg PO BID 12/13 remains rate controlled 90s, continue Coreg 25 mg PO BID Follow up scheduled: [facility] Cardiology 01/31 at 1:20 Lines/Drains/Tubes: PIV x2, Lucio- removed Void check DVT Prophylaxis: Lovenox Diet: Adult Diet Restricted; Consistent Carbohydrate Activity: WBAT GI Prophylaxis: none Code Status: LIMITED - No CPR Total time spent included the following activities caring for this patient: Patient chart review, Reviewing/obtaining history, Examination and evaluation, Counseling/educating patient/family/caregiver, Ordering medications/tests/procedures, Referring & communicating with other health day care center director, Documenting clinical information in the health record, Independent interpretation of results, and Care coordination 45 minutes All care plans discussed with rounding/operative attending: MD Parris Engel NP Cosigned by Abhijit Allen DO at 12/14/2023 1:25 PM CDT * Parris Soto NP - 12/13/2023 4:51 PM CDT Images from the original note were not included. [facility] Geriatric Trauma Service Floor Daily Progress [...] Noel Islas MD, 1,000 mg at 12/13/23 1004 ALPRAZolam (XANAX) tablet 0.5 mg, 0.5 mg, [...] MISHA, SinkEmy NP, 2 Units at 12/13/23 1621 levothyroxine (SYNTHROID) tablet 50 mcg, 50 mcg, oral, Daily, Neol Islas MD, 50 mcg at 12/13/23826 lidocaine [...] HFrEF (heart failure with reduced ejection fraction) ([facility]/HCC) (HCC) Hyperlipidemia Hypothyroidism Insomnia Mitral regurgitation Motion sickness NSTEMI (non-ST elevated myocardial infarction) ([facility]/HCC) (HCC) Obesity AYAD on CPAP Patellar [...] in admissions tab [facility] Discharge planning issues Assessment & Plan 12/08 OR with orthopedics 12/09 code stroke this morning followed by ACT secondary to hypotension. Patient transferred to OU for closer observation 12/10 bedside ECHO Closed nondisplaced intertrochanteric fracture of left femur ([facility]) ([facility]) Assessment & Plan - ortho consult - [...] Type 2 diabetes mellitus without complications (CMS/HCC) ([facility]) Assessment & Plan Continue DM diet with SSI Holding home glipizide and metformin A1C 6.5 Acquired hypothyroidism Assessment & Plan Continue home levothyroxine Paroxysmal atrial fibrillation (CMS/HCC) ([facility]) Assessment & Plan Holding home eliquis and Carvedilol 12/10 A fib controlled HR 100s, restarting Coreg 12.5 mg PO BID (home dose 50 mg PO BID) CTM Follow up scheduled: [facility] Cardiology 01/31 at 1:20 Lines/Drains/Tubes: PIV x2, Lucio DVT Prophylaxis: Lovenox Diet: Adult Diet Restricted; Consistent Carbohydrate Activity: WBAT GI Prophylaxis: none Code Status: LIMITED - No CPR Total time spent included the following activities caring for this patient: Patient chart review, Reviewing/obtaining history, Examination and evaluation, Counseling/educating patient/family/caregiver, Ordering medications/tests/procedures, Referring & communicating with other health day care center director, Documenting clinical information in the health record, Independent interpretation of results, Care coordination, and Complex wound care 30 minutes All care plans discussed with rounding/operative attending: MD Parris Engel NP Cosigned by Kevin Corrigan MD at 12/13/2023 6:05 PM CDT * Praris Soto NP - 12/12/2023 1:30 PM CDT Images from the original note were not included. [facility] Ger[facility] Trauma Service OU Daily Progress [...] Sink, Emy Dorado NP, 30 mg at 12/12/23 1038 FLUoxetine (PROzac) capsule 20 mg, 20 mg, oral, Daily, SinkEmy NP, 20 mg at 12/12/23 1038 glucagon injection 1 mg, 1 mg, intramuscular, Q30 Min PRN, SinkEmy NP insulin lispro (HumaLOG, ADMELOG) 100 unit/mL injection 0-10 Units, 0-10 Units, subcutaneous, Q4H MISHA, SinkEmy NP, 2 Units at 12/12/23 1232 levothyroxine [...] vomiting) Pulmonary embolism ([facility]) Sleep apnea Zenker's diverticulum Surgical History: Past [...] Lucio replaced Labs/Imaging: Recent Labs Lab Units 09/27/214612/10/23213612/10/23 1217 WBC K/cumm 6.7 5.6 5.8 HEMOGLOBIN [...] in admissions tab [facility] Discharge planning issues Assessment & Plan 12/08 OR with orthopedics 12/09 code stroke this morning followed by ACT secondary to hypotension. Patient transferred to OU for closer observation 12/10 bedside ECHO Closed nondisplaced intertrochanteric fracture of left femur (CMS/HCC) ([facility]) Assessment & Plan - ortho consult - [...] Type 2 diabetes mellitus without complications (CMS/HCC) ([facility]) Assessment & Plan Continue DM diet with SSI Holding home glipizide and metformin A1C 6.5 Acquired hypothyroidism Assessment & Plan Continue home levothyroxine Paroxysmal atrial fibrillation ([facility]) ([facility]) Assessment & Plan Holding home eliquis and Carvedilol 12/10 A fib controlled HR 100s, restarting Coreg 12.5 mg PO BID (home dose 50 mg PO BID) CTM Follow up scheduled: [facility] Cardiology 01/31 at 1:20 Lines/Drains/Tubes: PIV x2, Lucio DVT Prophylaxis: Lovenox Diet: Adult Diet Restricted; Consistent Carbohydrate Activity: WBAT GI Prophylaxis: none Code Status: LIMITED - No CPR Total time spent included the following activities caring for this patient: Patient chart review, Reviewing/obtaining history, Examination and evaluation, Counseling/educating patient/family/caregiver, Ordering medications/tests/procedures, Referring & communicating with other health day care center director, Documenting clinical information in the health record, Independent interpretation of results, and Care coordination 30 minutes All care plans discussed with rounding/operative attending: MD Parris Engel NP Cosigned by Kevin Corrigan MD at 12/12/2023 1:50 PM CDT * William Celestin Lucien - 12/12/2023 11:43 AM CDT Physical Therapy [...] treatment team and contact the PT or GROUP WORK PROGRAM AIDE currently assigned to this patient. If a physical therapy clinician is not assigned to this patient, please call [phone]. 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 Cosigned by Adilia Thomas, PT at 12/12/2023 4:09 PM CDT * [...] Units 12/12/23 0406 12/11/23 2347 12/11/23 2147 12/08/23 2052 12/08/23 1135 SODIUM mmol/L 136 -- 135 [...] soiled or have shadowing before that time Sutures/[place]: Will be removed 3 weeks after surgical [...] with Dr. Villalobos located at [facility] Please call with questions during daytime. See below for overnight issues. If you know the resident's name on the appropriate orthopaedic surgery team, please use [email or web address] to page resident directly. If questions arise and the appropriate resident can't be reached or you are calling overnight, please contact [phone] ([place]- 7:30 PM - 6:30 AM - Floor Resident) or [phone] (24 hours/day - Consult Resident) Cosigned by Homer Villalobos MD at 12/14/2023 9:03 AM CDT * Maria Luz Hunter - 12/11/2023 12:[address] [facility] Spiritual Care Note Boat Ride Operator Rabbi Maria Luz Hunter Triage: [phone] 12/11/23 1200 Time Spent Start Time 1225 Stop Time 1240 Time Calculation (min) 15 min Patient Spiritual Assessment Spirituality Assessed Yes Cheondoism Affiliation [place] [employer] [facility] [place] Active in Islam Yes Spiritual Needs Prayer Clinical Encounter Type Visited With Patient and family together Response Type Routine visit Routine Visit Introduction Reason for visit Support Referral From Patient Outcomes and Progress Aligning care with patient's values Achieved Preserve dignity and respect Achieved Demonstrating care and respect Achieved Jina affirmation Achieved Establish rapport and connectedness Achieved Interventions Interventions Prayer;Active listening;Offer emotional support;Offer spiritual/taoist support;Explore jina and values Plan Future Plan [...] not assigned to this patient, please call [phone]. 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 Home ADL Equipment-Currently Using None Prior Function Level of [place] Independent with ADLs;Independent functional transfers;Independent with ambulation;Independent with homemaking with ambulation Lives With Alone Receives Help From Family;Neighbor (son may be able to stay with Pt signal timer) Driving Yes Mode of Transportation Car ADL Assistance Independent Instrumental ADL (IADL) Assistance Independent Vocational/Occupation Retired Type of Occupation [employer] Fall within the last 6 months Yes [...] name and address after me Miguel Carrasquillo [address] [place] [address] Without looking at the clock, tell me [...] Complete 5 min Trails A & B (Turner Making Test) Patient completed Trails A in [...] - Patient will perform toilet transfer to/from [facility] with Cyrus 12/11/23 12/18/23 -- Problem: OT Misc Start Date: 12/11/23 Goal Start Date Expected End Date End Date OT LTG - Pt will complete standing ADLs and functional transfers with SPV. 12/11/23 01/01/24 -- * Parris Soto NP - 12/11/2023 11:35 AM CDT Images from the original note were not included. [facility] Trauma [facility] OU Daily Progress [...] MISHA, Emy Sanchez NP, 30 mg at 12/11/23 0845 FLUoxetine (PROzac) capsule 20 mg, 20 mg, oral, Daily, SinkEmy NP, 20 mg at 12/11/23 0845 glucagon injection 1 mg, 1 mg, intramuscular, Q30 Min PRN, Emy Sanchez NP insulin lispro (HumaLOG, ADMELOG) 100 unit/mL injection 0-10 Units, 0-10 Units, subcutaneous, Q4H MISHA, SinkEmy NP, 2 Units at 12/11/23 0845 levothyroxine [...] Motion sickness NSTEMI (non-ST elevated myocardial infarction) ([facility]/HCC) (HCC) Obesity AYAD on CPAP Patellar [...] Labs/Imaging: Recent Labs Lab Units 12/10/23213612/10/23 1217 12/09/234 WBC K/cumm 5.6 5.8 8.1 HEMOGLOBIN g/dL [...] report andagrees with it. Electronically signed by: Anhtony Wilburn M.D. CT Stroke Head WO Contrast [...] in admissions tab [facility] Discharge planning issues Assessment & Plan [...] CTM Type 2 diabetes mellitus without complications ([facility]) ([facility]) Assessment & Plan Continue DM diet with SSI Holding home glipizide and metformin A1C 6.5 Acquired hypothyroidism Assessment & Plan Continue home levothyroxine Paroxysmal atrial fibrillation ([facility]) ([facility]) Assessment & Plan Holding home eliquis and Carvedilol 12/10 A fib controlled HR 100s, restarting Coreg 12.5 mg PO BID (home dose 50 mg PO BID) CTM Follow up scheduled: [facility] Cardiology 01/31 at 1:20 Lines/Drains/Tubes: PIV x2, Lucio DVT Prophylaxis: Lovenox Diet: Adult Diet Restricted; Consistent Carbohydrate Activity: WBAT GI Prophylaxis: none Code Status: LIMITED - No CPR Total time spent included the following activities caring for this patient: Patient chart review, Reviewing/obtaining history, Examination and evaluation, Counseling/educating patient/family/caregiver, Ordering medications/tests/procedures, Referring & communicating with other health day care center director, Documenting clinical information in the health record, [...] Labs Lab Units 12/11/23 0344 12/10/23 2344 12/10/237 12/08/23205112/08/23 1135 SODIUM mmol/L -- -- 135 [...] on 01/18/[address] Villalobos located at [address] [facility]) Michelle Zamudio M.D. Orthopaedic Surgery Resident, PGY-2 [facility] For questions please reach out to: CorinnaRonaEarl 7:30p-6:30a (Night Floor Resident): [phone] Consult Resident: [phone] Specific Resident: Please use [employer] ([employer]) to page/call appropriate OrthopaedicSurgery Team/Resident Not sure which resident is on for the service? Check the Call Schedule: AMIISHA for [facility] Orthopaedic Surgery (pw: [facility]) For ortho primary adult patients, Thu - Thu 6a-6p: Call [phone] nurses station for PA/MANAGER PROFESSIONAL DEVELOPMENT ([phone]) For ortho primary pediatric patients, Thu - Thu 6a-6p: Call 10th floor nurses station for MANAGER PROFESSIONAL DEVELOPMENT Please call with questions during daytime. See below for overnight issues. If you know the resident's name on the appropriate orthopaedic surgery team, please use [employer] to page resident directly. If questions arise and the appropriate resident can't be reached or you are calling overnight, please contact [phone] ([place]- 7:30 PM - 6:30 AM - Floor Resident) or [phone] (24 hours/day - Consult Resident) Cosigned by Homer Villalobos MD at 12/11/2023 9:26 AM CDT * Emy Sanchez NP - 12/10/2023 2:54 PM CDT Images from the original note were not included. 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 [...] 1,000 mg, 1,000 mg, oral, Q6H, Noel sIlas MD, 1,000 mg at 12/10/23 1210 ALPRAZolam [...] syringe 30 mg, 30 mg, subcutaneous, Q12H Laura CABRAL Christa Elisabeth, NP, 30 mg at 12/10/23 0855 FLUoxetine (PROzac) capsule 20 mg, 20 mg, oral, Daily, Emy Sanchez NP, 20 mg at 12/10/23 0755 glucagon injection 1 mg, 1 mg, intramuscular, Q30 Min PRN, Sink, Emy Ave, MANAGER PROFESSIONAL DEVELOPMENT HYDROmorphone (DILAUDID) injection 0.5 mg, 0.5 mg, intravenous, Q2H PRN, Whitney Lovelace MD, 0.5 mg at 12/10/23 0638 insulin lispro (HumaLOG, ADMELOG) 100 unit/mL injection 0-10 Units, 0-10 Units, subcutaneous, Q4H MISHA, Laura, Emy Dorado, LM, 4 Units at 12/10/23 1215 levothyroxine (SYNTHROID) [...] HFrEF (heart failure with reduced ejection fraction) ([facility]/HCC) ([facility]) Hyperlipidemia Hypothyroidism Insomnia Mitral regurgitation Motion sickness NSTEMI (non-ST elevated myocardial infarction) ([facility]) ([facility]) Obesity AYAD on CPAP Patellar sleeve fracture of left knee PONV (postoperative nausea and vomiting) Pulmonary embolism ([facility]) Sleep apnea Zenker's diverticulum Surgical History: Past [...] in admissions tab Home [facility] Discharge planning issues Assessment & Plan 12/08 OR with orthopedics 12/09 code stroke this morning followed by ACT secondary to hypotension. Patient transferred to OU for closer observation Closed nondisplaced intertrochanteric fracture of left femur ([facility]) ([facility]) Assessment & Plan - ortho consult - 12/09 OR for ORIF of L intertrochanteric femur fx - WBAT, PT/OT -Bone health referral Resume home anticoagulation at discharge WAI (generalized anxiety disorder) Assessment & Plan Home xanax, continued PRN Essential hypertension Assessment & Plan home Coreg, cozaar, spironolactone 12/09 holding all home medications secondary to hypotension Type 2 diabetes mellitus without complications ([facility]) ([facility]) Assessment & Plan Continue DM diet with SSI Holding home glipizide and metformin A1C 6.5 Acquired hypothyroidism Assessment & Plan Continue home levothyroxine Paroxysmal atrial fibrillation ([facility]) ([facility]) Assessment & Plan Holding home eliquis FEN: [...] medications/tests/procedures, Referring & communicating with other health day care center director, Documenting clinical information in the health record, [...] from the original note were not included. [facility] Geriatric Trauma Service Floor Daily Progress [...] tablet 1,000 mg, 1,000 mg, oral, Q6H, Janel, Noel Yilma, MD, 1,000 mg at 12/10/23 0434 ALPRAZolam [...] MISHA, Emy Sanchez NP, 2 Units at 12/10/23 [...] Date Adrenal nodule ([facility]) Anxiety Aortic stenosis, moderate Cardiomyopathy (HCC) Diabetes mellitus ([facility]) GERD (gastroesophageal reflux disease) Heart murmur HFrEF (heart failure with reduced ejection fraction) ([facility]/HCC) ([facility]) Hyperlipidemia Hypothyroidism Insomnia Mitral regurgitation Motion sickness NSTEMI (non-ST elevated myocardial infarction) ([facility]/HCC) ([facility]) Obesity AYAD on CPAP Patellar sleeve fracture of left knee PONV (postoperative nausea and vomiting) Pulmonary embolism ([facility]) Sleep apnea Zenker's diverticulum Surgical History: Past [...] 0739 12/10/23 0439 12/09/23 2350 12/09/23 2224 12/08/23205112/08/23 1135 SODIUM mmol/L -- -- -- 140 [...] and updated in admissions tab Home pharmacy [facility] in [facility] Discharge planning issues Assessment & Plan 12/08 OR with orthopedics Closed nondisplaced intertrochanteric fracture of left femur ([facility]) ([facility]) Assessment & Plan - ortho consult - 12/09 OR for ORIF of L intertrochanteric femur fx - WBAT, PT/OT -Bone health referral Resume home anticoagulation at discharge WAI (generalized anxiety disorder) Assessment & Plan Home xanax, continued PRN Essential hypertension Assessment & Plan Continue home Coreg, lasix, cozaar, spironolactone Type 2 diabetes mellitus without complications (CMS/[facility]) ([facility]) Assessment & Plan Continue DM diet with [...] medications/tests/procedures, Referring & communicating with other health day care center director, Documenting clinical information in the health record, [...] residual Procedure(s): 12/09/23: DHS L IT fx [phone] (pt) [phone] (son) Interval History: 12/10/23: NAEO. AFVSS. WBC [...] Labs Lab Units 12/10/23 0439 12/09/23 2350 12/09/234 12/08/23205112/08/23 1135 SODIUM mmol/L -- -- 140 [...] soiled or have shadowing before that time [place]: Will be removed 3 weeks after surgical [...] on 01/18/[address] Villalobos located at [facility] 6A Please call with questions during daytime. See below for overnight issues. If you know the resident's name on the appropriate orthopaedic surgery team, please use [email or web address] to page resident directly. If questions arise and the appropriate resident can't be reached or you are calling overnight, please contact [phone] ([facility] 7:30 PM - 6:30 AM - Floor Resident) or [phone] (24 hours/day - Consult Resident) * [place] [...] soiled or have shadowing before that time [place]: Will be removed 3 weeks after surgical [...] with Dr. Villalobos located at [facility] [place] Humphrey MD Clinical Fellow Orthopedic Trauma Service [facility] Orthopedics Dictated using [employer] Software. Railcar Foreman variances may occur. * Daniela Brady MSW - 12/09/2023 12:00 PM CDT Trauma Services rounding completed by RN Coordinator Kevin Mckeon on this date. Pt provided withTrauma Services booklet, TSN information, and fall prevention handout. RICH García, MPH, [facility] Trauma Survivors Soap Drier Operator [facility] Trauma Services (c) [phone] * Emy Sanchez NP - 12/09/2023 11:41 AM CDT Images from the original note were not included. [facility] Geriatric Trauma Service Floor Daily Progress [...] oral, Daily, SinkEmy NP, 20 mg at 12/09/23 0900 furosemide [...] Units, 0-10 Units, subcutaneous, Q4H [facility], Emy Sanchez NP labetaloL (NORMODYNE,TRANDATE) injection 10 [...] Daily, Noel Islas MD, 20 mg at senna (SENOKOT) tablet 1 tablet, 1 tablet, oral, Daily PRN, Noel Islas MD sodium chloride 0.9% infusion, 75 mL/hr, intravenous, Continuous, Sink, Emy Dorado NP, LastRate: 75 mL/hr at 12/09/23842, 75 mL/hr at 12/09/23 08 spironolactone (ALDACTONE) tablet 50 mg, 50 mg, oral, Daily, Noel Islas MD, 50 mg at 12/09/23826 Past Medical: Past Medical History: Diagnosis Date Adrenal nodule (HCC) Anxiety Aortic stenosis, moderate Cardiomyopathy (HCC) Diabetes mellitus (HCC) GERD (gastroesophageal reflux disease) Heart murmur HFrEF (heart failure with reduced ejection fraction) (CMS/HCC) (HCC) Hyperlipidemia Hypothyroidism Insomnia Mitral regurgitation Motion sickness NSTEMI (non-ST elevated myocardial infarction) (CMS/HCC) ([facility]) Obesity AYAD on CPAP Patellar sleeve fracture of left knee PONV (postoperative nausea and vomiting) Pulmonary embolism ([facility]) Sleep apnea Zenker's diverticulum Surgical History: Past [...] in admissions tab [facility] Discharge planning issues Assessment & Plan 12/08 OR with orthopedics Closed nondisplaced intertrochanteric fracture of left femur ([facility]) ([facility]) Assessment & Plan - ortho consult - Ortho planning OR for ORIF of L intertrochanteric femur fx - NWB LLE - NPO until further notice -Bone health referral Resume home anticoagulation at discharge WAI (generalized anxiety disorder) Assessment & Plan Home xanax, continued PRN Essential hypertension Assessment & Plan Continue home Coreg, lasix, cozaar, spironolactone Type 2 diabetes mellitus without complications ([facility]) ([facility]) Assessment & Plan Continue DM diet with SSI Holding home glipizide and metformin A1C pending Acquired hypothyroidism Assessment & Plan Continue home levothyroxine Paroxysmal atrial fibrillation ([facility]) ([facility]) Assessment & Plan Holding home eliquis FEN: [...] medications/tests/procedures, Referring & communicating with other health day care center director, Documenting clinical information in the health record, [...] sided residual Procedure(s): DHS L IT fx [phone] (pt) [phone] (son) Interval History: 12/09/23: AFVSS. WBC 6.5, [...] Zamudio M.D (Madeline). Orthopaedic Surgery Resident, PGY-2 [facility] For questions please reach out to: [facility] 7:30p-6:30a (Night Floor Resident): [phone] Consult Resident: [phone] Specific Resident: Please use [employer] ([employer]) to page/call appropriate OrthopaedicSurgery Team/Resident Not sure which resident is on for the service? Check the Call Schedule: IRLANDA for [facility] Orthopaedic Surgery (pw: [facility]) For ortho primary adult patients, Thu - Thu 6a-6p: Call [phone] nurses station for PA/MANAGER PROFESSIONAL DEVELOPMENT ([phone]) For ortho primary pediatric patients, Thu - Thu 6a-6p: Call 10th floor nurses station for MANAGER PROFESSIONAL DEVELOPMENT Please call with questions during daytime. See below for overnight issues. If you know the resident's name on the appropriate orthopaedic surgery team, please use [employer] to page resident directly. If questions arise and the appropriate resident can't be reached or you are calling overnight, please contact [phone] ([facility] 7:30 PM - 6:30 AM - Floor Resident) or [phone] (24 hours/day - Consult Resident) Cosigned by Homer Villalobos MD at 12/09/2023 10:54 AM CDT * Alia Ibarra MD - 12/08/2023 10:50 PM CDT Images from the original note were not included. [facility] Geriatric Trauma ED Transfer Accept Note [...] nondisplaced intertrochanteric fracture of left femur (CMS/HCC) ([facility]) Assessment & Plan - ortho consult - [...] L intertrochanteric femur fx Requesting Provider: [facility] Dx: L intertrochanteric femur fx Injury Mechanism: fall going up a step OI: None PMHx: L DFR s/p distal femur fx (2019), Afib on eliquis, PE, HTN, HLD, T2DM, CHF, CVA with right sided residual Plan: PENDING IMN+ORIF of L intertrochanteric femur fx Procedure(s): PENDING IMN+ORIF of L intertrochanteric femur fx [phone] (pt) [phone] (son) HPI: 83 y.o. right hand dominant [...] history of heart failure - (Added by PAUL Conv) Heart disease Mother Heart attack Father [...] Consult was/will be staffed with senior/attending/resident team electronics inspector who agrees w plan. Follow-up will be arranged by the orthopaedic team. Will plan for follow-up at [facility] (call [phone] to make an appointment) or [facility] (call [phone] to make an appointment) pending hospital/ ED course. Giacomo Carrizales M.D. Orthopaedic Surgery Resident, PGY-1 [facility] For questions please reach out to: [facility] 7:30p-6:30a (Night Floor Resident): [phone] Consult Resident: [phone] Specific Resident: Please use [employer] ([email or web address]) to page/call appropriate OrthopaedicSurgery Team/Resident Not sure which resident is on for the service? Check the Call Schedule: IRLANDA for [facility] Orthopaedic Surgery (pw: [facility]) For ortho primary adult patients, Thu - Thu 6a-6p: Call [phone] nurses station for PA/MANAGER PROFESSIONAL DEVELOPMENT ([phone]) For ortho primary pediatric patients, Thu - Thu 6a-6p: Call 10th floor nurses station for MANAGER PROFESSIONAL DEVELOPMENT Cosigned by Homer Villalobos MD at 12/08/2023 [...] (heart failure with reduced ejection fraction) (CMS/HCC) ([facility]), Hyperlipidemia, Hypothyroidism, Ins omnia, Mitral regurgitation, Motion sickness, NSTEMI (non-ST elevated myocardial infarction) (CMS/HCC) ([facility]), Obesity, AYAD on CPAP, Patellar sleeve fracture of left knee, PONV (postoperative nausea and vomiting), Pulmonary embolism ([facility]), Sleep apnea, and Zenker's diverticulum. PSHX: has [...] and systolic function - Recommend consultation with emergency department given recent life stressors We appreciate the ability to be involved in this patient's care. If after 5PM or on weekends, please page the devil tender electronics inspector with any questions or concerns. Emile Wallace [...] to pain medications. Recommendations - NPO until RETAIL STORE CLERK eval - Increase neurochecks to q4h - [...] please contact the Neuro Consult Senior on GRISELDAISHA. Denisa Pearce MD 12/10/2023, 11:36 AM Chief [...] Normal, no sensory loss Best Language (9.): Tgxc-al-rwbdtdax aphasia Dysarthria (10.): Normal Extinction and Inattention [...] or mechanical thrombectomy Recommendations - NPO until RETAIL STORE CLERK eval - Increase neurochecks to q4h - Restart AC when safe per primary - Can consider Brain MRI WO to evaluate for stroke Disposition: 6447-1 Case discussed with HASTE attending: Dr. Han The TYLER team will sign off at this time. If patient has a sudden onset neurological change pleasepage another Code Stroke. If patient otherwise requires further neurological evaluation please contact the Neuro Consult Senior [facility] Denisa Pearce MD 12/10/2023, 11:36 AM Subjective [...] follow up tomorrow with patient and contact [facility] for completing DPOA. The services provided in this conversation and described in this note are non- billable and to be used for ongoing clinical care only. RICH Cabrera * Noel Islas MD - 12/08/2023 6:51 PM CDTAssociated Order(s): Consult to Trauma Surgery [facility] Team A Trauma Surgery History and [...] Disposition of Patient: Admit to trauma service-Floor [facility] Trauma Surgery December 08, 2023 6:52 [...] check glucose 100 each 1 blood-glucose meter [facility] [place] [place] Use daily or as directed for monitoring [...] Response: Oriented Best Motor Response: Obeys commands [place] Coma Scale Score: 15 C-Spine Precautions: No [...] PENDING IMN+ORIF of L intertrochanteric femur fx [phone] (pt) [phone] (son) HPI: 83 y.o. right hand dominant [...] Mitral regurgitation NSTEMI (non-ST elevated myocardial infarction) ([facility]) ([facility]) Obesity AYAD on CPAP Patellar sleeve fracture of left knee PONV (postoperative nausea and vomiting) Pulmonary embolism ([facility]) Sleep apnea Zenker's diverticulum Past Surgical History: [...] TABLET BY MOUTH EVERY DAY 09/02/23 Chris Mnedes MD spironolactone (ALDACTONE) 50 mg tablet Take [...] Consult was/will be staffed with senior/attending/resident team electronics inspector who agrees w plan. Follow-up will be arranged by the orthopaedic team. Will plan for follow-up at [facility] (call [phone] to make an appointment) or [facility] (call [phone] to make an appointment) pending hospital/ ED course. Giacomo Carrizales M.D. Orthopaedic Surgery Resident, PGY-1 [facility] For questions please reach out to: [facility] 7:30p-6:30a (Night Floor Resident): [phone] Consult Resident: [phone] Specific Resident: Please use [employer] ([employer]) to page/call appropriate OrthopaedicSurgery Team/Resident Not sure which resident is on for the service? Check the Call Schedule: AMION for [facility]edic [facility] For ortho primary adult patients, Thu - Thu 6a-6p: Call [phone] nurses station for PA/MANAGER PROFESSIONAL DEVELOPMENT ([phone]) For ortho primary pediatric patients, Thu - Thu 6a-6p: Call 10th floor nurses station for MANAGER PROFESSIONAL DEVELOPMENT Cosigned by Homer Villalobos MD at 12/08/2023 7:09 PM CDT documented in this encounter Nursing Notes * Tiara Mondragon RN - 12/10/2023 3:15 [place] [address] [place] 6400 at 1515. Two nurses teamed [...] arrival: Comments: 1- Martha Trimble RN 12/08/23 2148 * Moni Mcmanus RN - 12/08/2023 6:15 PM CDT Bed: ED1- Expected date: Expected time: Means of arrival: [...] Closed displaced fracture of left femoral neck ([facility]) 12/08/2023 Closed nondisplaced intertrochanteric fracture of left femur ([facility]) ([facility]) 12/08/2023 Hyperlipidemia 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 ([facility]) ([facility]) 10/11/2021 Essential tremor History of nephrolithiasis 03/21/2021 Pica in adults 08/21/2020 Thyroid nodule 08/21/2020 Moderate episode of recurrent major depressive disorder ([facility]) 08/21/2020 AYAD on CPAP 08/21/2020 Gastro-esophageal reflux disease without esophagitis 06/05/2019 WAI (generalized anxiety disorder) 06/05/2019 Slow transit constipation 06/05/2019 Acquired hypothyroidism 05/31/2019 Type 2 diabetes mellitus without complications ([facility]) ([facility]) 05/31/2019 Essential hypertension 05/31/2019 Presence of left artificial knee joint 05/25/2019 Paroxysmal atrial fibrillation ([facility]) ([facility]) 08/18/2017 Past Medical History: Diagnosis Date Adrenal nodule ([facility]) Anxiety Aortic stenosis, moderate Cardiomyopathy ([facility]) Diabetes mellitus ([facility]) GERD (gastroesophageal reflux disease) Heart murmur HFrEF (heart failure with reduced ejection fraction) ([facility]) ([facility]) Hyperlipidemia Hypothyroidism Insomnia Mitral regurgitation NSTEMI (non-ST elevated myocardial infarction) ([facility]) ([facility]) Obesity AYAD on CPAP Patellar sleeve fracture of left knee PONV (postoperative nausea and vomiting) Pulmonary embolism ([facility]) Sleep apnea Zenker's diverticulum Past Surgical History: [...] more neutral position for x-rays By: Steve Hubre MD Time: 12/07 1215 Comment: Patient is [...] anticoagulation By: Whitney Lovelace MD Time: 12/07 8381 Comment: Touched base with [facility]. They have [...] the resident's note. Andre Willson MD 12/08/23 8674 Steve Huber MD 12/08/23 5474 Steve Huber MD 12/09/23 0639 * Юлия Gale RN - 12/08/2023 11:20 [...] RN - 12/08/2023 11:19 AM CDT Bed: [facility] Expected date: Expected time: Means of [...] PT * Plan of Care - Ingrid Win RN - 12/15/2023 11:34 AM CDT 12/09/23 1331 Discharge Planning Support System Family members (Elio Culp (Son) [phone]) Anticipated discharge level of care correction facility (short term care) Does the patient need discharge transport arranged? 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 CM let VM x 2for Aydee in admissions [phone] to check bed availability, accepting MD information - awaitingcall back as of this time. Discharge Barriers: pending bed availability, insurance authorization Education Needs Identified (plan):TBD F/U Appointments: to be scheduled prior to discharge Addendum as of 1307 - CM left another VM for coordinator of health services Aydee [phone] - awaiting call back as of this time Addendum as of 1413 - CM received information from Aydee in admissions - Summer Osei , MD Yves Bailey . Insurance auth pending Patient's Identified Problem/Goal Problem:?Ensure acute medical needs are met and that patient has a safe discharge plan. Goal:?Secure a discharge plan that patient/family are agreeable with?and ensure patient has continuum of care. Patient and/or family are agreeable with plan. table games shift manager will continue to follow and assist with discharge planning as needed. If any further discharge needs arise, please contact the covering senior case manager. * Assessment & Plan Note - Parris Soto NP - 12/15/2023 11:12 AM CDT Associated Problem(s): Hyponatremia 12/14 Na 128, started PO tablets 12/15 Na 129 - Recheck BMP at [facility] in 1 week * Provider Query - [...] severity. Vitamin and Mineral Nutrition Information System. [place], World Health Organization, 2010 (WHO/NMH/NHD/MNM/11.1) http://www.who.int/vmnis/indicators/haemoglobin.pdf https://acphospitalist.org/archives//coding.htm https://acphospitalist.org/archives//chvnvw-dewza-omcq-anemia.htmhttps:// acphospitalist.org/archives//losbzd-aswqw-sduq-anemia.htm From the ICD-10-CM Coding Guidelines, use of [...] Regards, Jennifer Lehman RN, CCDS Clinical Documentation Candle Molder Machine [phone] [email or web address] * Provider Query - Emy Sanchez NP [...] record. Jennifer Mcnulty RN, CCDS Clinical Documentation Candle Molder Machine [phone] [email or web address] * Plan of Care - Draiana Washington RN - 12/14/2023 1:20 PM CDT Goals: Clinical Goals for the Shift: Monitor VS, monitor I&Os, pain management, Q2 turns, out of bed to chair Test Department Helper Patient Centered Goal for Treatment: discharge Problem: [...] Support System Family members (Elio Culp (Son) [phone]) Anticipated discharge level of care correction facility (short term care) Does the patient [...] left displaced IT fracture ADD: 12/14 Referrals: Help Desk Support Specialist noted patient has been recommended for Inpatient Rehab by PT/OT. Help Desk Support Specialist met with the patient/family at bedside to discuss recommendations by therapy and to work on a potential discharge disposition plan, patient/family interested in SNF placement as of this time. table games shift manager provided a list of SNF choices to patient and family. Patient and family selected the following choices (preference order): [facility], [facility], [facility] Electronic referrals sent out via [employer]. Awaiting responses as of this time. Discharge [...] Patient and/or family are agreeable with plan. table games shift manager will continue to follow and assist with discharge planning as needed. If any further discharge needs arise, please contact the covering senior case manager. * ECIN Note - Ingrid [...] Recent Administrations ondansetron (ZOFRAN) injection 4 mg [[id number]] Ordering Provider: Andre Willson MD Status: Dispensed (Past End Date/Time) Ordered On: 12/08/23 1131 Starts/Ends: 12/08/23 1132 - 12/09/23 1132 Ordered Dose (Remaining/Total): 4 mg (1/1) Route: intravenous Frequency: Once Ordered Rate/Order Duration: -- / 2 Minutes (No admins scheduled or recorded for this medication) ketamine (KETALAR) injection 10 mg [[id number]] Ordering Provider: Steve Huber MD Status: Completed (Past End Date/Time) Ordered On: 12/08/23 1140 Starts/Ends: 12/08/23 114 - 12/08/23 1145 Ordered Dose (Remaining/Total): 10 mg () Route: intravenous Frequency: Once Ordered Rate/Order Duration: -- / 2 Minutes Line Med Link Info Comment Peripheral IV 12/08/23 18 G Anterior;Left;Proximal Forearm 12/08/23 1143 by Юлия Gale RN -- Timestamps Action Dose / Duration Route Other Information 12/08/231142 Given 10 mg 2 Minutes intravenous Performed by: Юлия Gale RN Scanned Package: [id number] fentaNYL (SUBLIMAZE) preservative free injection 50 mcg [[id number]] Ordering Provider: Steve Huber MD Status: Completed [...] Performed by: Priscilla Avalos RN Scanned Package: [id number] HYDROmorphone (DILAUDID) injection 0.5 mg [[id number]] Ordering Provider: Dick Nova MD Status: Completed [...] Performed by: Юлия Gale RN Scanned Package: [id number] lidocaine (ASPERCREME) 4 % patch 1 patch [[id number]] Ordering Provider: Sukhjinder Cao MD Status: Dispensed [...] Performed by: Anh Savage RN Scanned Package: [id number] ALPRAZolam (XANAX) tablet 0.5 mg [[id number]] Ordering Provider: Noel Islas MD Status: Dispensed Ordered On: 12/08/232249 Start: 12/08/232249 Ordered Dose (Remaining/Total): 0.5 mg (--/--) Route: oral Frequency: 2 times daily PRN Ordered Rate/Order Duration: -- / -- Timestamps Action Dose Route Other Information 12/13/232048 Given 0.5 mg oral Performed by: Alfredo Lind RN Scanned Package: 47460-101-15 FLUoxetine (PROzac) capsule 20 mg [[id number]] Ordering Provider: Emy Sanchez NP Status: Dispensed Ordered On: 12/08/232249 Start: 12/09/23899 Ordered Dose (Remaining/Total): 20 mg (--/--) Route: oral Frequency: Daily Ordered Rate/Order Duration: -- / -- Timestamps Action Dose Route Other Information 12/14/23 0817 Given 20 mg oral Performed by: Dariana Washington RN Scanned Package: 78024-804-80, 30668-965-17 levothyroxine (SYNTHROID) tablet 50 mcg [[id number]] Ordering Provider: Noel Islas MD Status: Dispensed [...] Performed by: Dariana Washington RN Scanned Package: [id number] rosuvastatin (CRESTOR) tablet 20 mg [[id number]] Ordering Provider: Noel Islas MD Status: Dispensed Ordered On: 12/08/232249 Start: 12/09/23 09 Ordered Dose (Remaining/Total): 20 mg (--/--) Route: oral Frequency: Daily Ordered Rate/Order Duration: -- / -- Timestamps Action Dose Route Other Information 12/14/23 08 Given 20 mg oral Performed by: Dariana Washington RN Scanned Package: 47598-851-17 acetaminophen (TYLENOL) tablet 1,000 mg [[id number]] Ordering Provider: Noel Islas MD Status: Dispensed Ordered On: 12/08/232249 Start: 12/08/232329 Ordered Dose (Remaining/Total): 1,000 mg (--/--) Route: oral Frequency: Every 6 hours Ordered Rate/Order Duration: -- / -- Timestamps Action Dose Route Other Information 12/14/23 1154 Given 1,000 mg oral Performed by: Dariana Washington RN Scanned Package: 4018-7263-79, 6214-2297-86 oxyCODONE (ROXICODONE) tablet 5 mg [[id number]] Ordering Provider: Noel Islas MD Status: Dispensed Ordered On: 12/08/232249 Start: 12/08/232249 Ordered Dose (Remaining/Total): 5 mg (--/--) Route: oral Frequency: Every 4 hours PRN Ordered Rate/Order Duration: -- / -- Timestamps Action Dose Route Other Information 12/14/23 0608 Given 5 mg oral Performed by: Alfredo Lind RN Scanned Package: [id number] polyethylene glycol (MIRALAX) packet 17 g [[id number]] Ordering Provider: Noel Islas MD Status: Dispensed Ordered On: 12/08/232249 Start: 12/09/23899 Ordered Dose (Remaining/Total): 17 g (--/--) Route: oral Frequency: Daily Ordered Rate/Order Duration: -- / -- Timestamps Action Dose Route Other Information 12/14/23817 Given 17 g oral Performed by: Dariana Washington RN Scanned Package: 62704-764-76 senna (SENOKOT) tablet 1 tablet [[id number]] Ordering Provider: Noel Islas MD Status: Dispensed Ordered On: 12/08/232249 Start: 12/08/232249 Ordered Dose (Remaining/Total): 1 tablet (--/--) Route: oral Frequency: Daily PRN Ordered Rate/Order Duration: -- / -- Timestamps Action Dose Route Other Information 12/14/23824 Given 1 tablet oral Performed by: Dariana Washington RN Scanned Package: 6518-7218-67 dextrose gel in packet 15 g [[id number]] Ordering Provider: Emy Sanchez NP Status: Verified [...] medication) dextrose (D10W) 10% bolus 250 mL [[id number]] Ordering Provider: Emy Sanchez NP Status: Verified [...] hour post treatment. If BG is less cgjk526 mg/dL, repeat Q15 minute BG checks and treatment. Call MD for each episode of hypoglycemia. (No admins scheduled or recorded for this medication) glucagon injection 1 mg [[id number]] Ordering Provider: Emy Sanchez NP Status: Verified [...] (HumaLOG, ADMELOG) 100 unit/mL injection 0-10 Units [[id number]] Ordering Provider: Emy Sanchez NP Status: Dispensed [...] Performed by: Dariana Washington RN Scanned Package: [id number] ketorolac (TORADOL) 30 mg/mL injection 15 mg [[id number]] Ordering Provider: Jermaine Sanchez MD Status: Completed (Past End Date/Time) Ordered On: 12/09/231948 Starts/Ends: 12/09/232029 - 12/09/231955 Ordered Dose (Remaining/Total): 15 mg (0/1) Route: intravenous Frequency: Once Ordered Rate/Order Duration: -- / -- Admin Instructions: For Adult IV push, administer over 15 seconds Timestamps Action Dose Route Other Information 12/09/231955 Given 15 mg intravenous Performed by: Mahogany France RN Scanned Package: 29807-663-18 magnesium sulfate 4 g/100 mL in water (premix) 4 g [[id number]] Ordering Provider: Alia Ibarra MD Status: Completed [...] Performed by: Jazmyn Santos RN Scanned Package: 96302-341-28 enoxaparin (LOVENOX) syringe 30 mg [[id number]] Ordering Provider: Emy Sanchez NP Status: Dispensed Ordered On: 12/10/23 0844 Start: 12/10/23 0915 Ordered Dose (Remaining/Total): 30 mg (--/--) Route: subcutaneous Frequency: Every 12 hours scheduled Ordered Rate/Order Duration: -- / -- Timestamps Action Dose Route / Site Other Information 12/14/23 0817 Given 30 mg subcutaneous Left Upper Abdomen Performed by: Dariana Washington RN Scanned Package: 21418-190-99 sodium chloride 0.9% bolus 1,000 mL [[id number]] Ordering Provider: Emy Sanchez NP Status: Completed (Past End Date/Time) Ordered On: 12/10/23 1203 Starts/Ends: 12/10/23 1245 - 12/10/23 1210 Ordered Dose (Remaining/Total): 1,000 mL (0/1) Route: intravenous Frequency: Once Ordered Rate/Order Duration: -- / -- Timestamps Action Dose Route Other Information 12/10/23 1210 New Bag 1,000 mL intravenous Performed by: Daniela Arshad RN sodium chloride 0.9% IVPB 0-250 mL [[id number]] Ordering Provider: Emy Sanchez NP Status: Completed [...] Performed by: Daniela Arshad RN Scanned Package: 7010-7379-86 methocarbamoL (ROBAXIN) tablet 500 mg [[id number]] Ordering Provider: Quita Abarca MD Status: Completed (Past End Date/Time) Ordered On: 12/10/231916 Starts/Ends: 12/10/231999 - 12/10/232123 Ordered Dose (Remaining/Total): 500 mg (0/1) Route: oral Frequency: Once Ordered Rate/Order Duration: -- / -- Timestamps Action Dose Route Other Information 12/10/232123 Given 500 mg oral Performed by: Carolyn Sullivan RN Comments: pt request Scanned Package: [id number] sodium chloride 0.9% bolus 500 mL [[id number]] Ordering Provider: Alia Ibarra MD Status: Completed (Past End Date/Time) Ordered On: 12/10/231937 Starts/Ends: 12/10/232014 - 12/10/232044 Ordered Dose (Remaining/Total): 500 mL (0/1) Route: intravenous Frequency: Once Ordered Rate/Order Duration: 500 mL/hr / 1 Hours Timestamps Action Dose / Rate / Duration Route Other Information 12/10/231944 New Bag 500 mL 250 mL/hr 1 Hours intravenous Performed by: Carolyn Sullivan RN Scanned Package: 4201-6826-02 ondansetron (ZOFRAN) injection 4 mg [[id number]] Ordering Provider: Alia Ibarra MD Status: Dispensed [...] Performed by: Alfredo Lind RN Scanned Package: 93192-537-23 perflutren protein-a (OPTISON) 3 mL in sodium chloride 0.9% 8 mL syringe [[id number]] Ordering Provider: Kevin Corrigan MD Status: Verified Ordered On: 12/11/23 0739 Start: 12/11/23 0739 Ordered Dose (Remaining/Total): 1-8 mL (1/1) Route: intravenous Frequency: Once in imaging Ordered Rate/Order Duration: -- / -- (No admins scheduled or recorded for this medication) perflutren protein-a (OPTISON) 3 mL in sodium chloride 0.9% 8 mL syringe [[id number]] Ordering Provider: Kevin Corrigan MD Status: Completed [...] in sodium chloride 0.9% 10 mL syringe [[id number]] Ordering Provider: Kevin Corrigan MD Status: Verified Ordered On: 12/11/23 0749 Start: 12/11/23 0749 Ordered Dose (Remaining/Total): 1-10 mL (03/16) Route: intravenous Frequency: Once in imaging Ordered Rate/Order Duration: -- / -- (No admins scheduled or recorded for this medication) cholecalciferol (VITAMIN D-3) capsule 1,000 Units [[id number]] Ordering Provider: Parris Soto NP Status: Dispensed Ordered On: 12/11/23 1152 Start: 12/11/23 1230 Ordered Dose (Remaining/Total): 1,000 Units (--/--) Route: oral Frequency: Daily Ordered Rate/Order Duration: -- / -- Admin Instructions: Each capsule contains 1,000 units (25 mcg) of cholecalciferol. Timestamps Action Dose Route Other Information 12/14/23 0817 Given 1,000 Units oral Performed by: Dariana Washington RN Scanned Package: [id number] dextrose (D10W) 10% bolus 500 mL [[id number]] Ordering Provider: Parris Soto NP Status: Completed (Past End Date/Time) Ordered On: 12/12/23 0649 Starts/Ends: 12/12/23 0730 - 12/12/23 1126 Ordered Dose (Remaining/Total): 500 mL (0/1) Route: [...] Signoff by: Eneida Kaiser RN Scanned Package: [id number] insulin regular (HumuLIN R, NovoLIN R) 100 unit/mL injection 4 Units [[id number]] Ordering Provider: Parris Soto NP Status: Completed [...] Signoff by: Eneida Kaiser RN Scanned Package: [id number] carvediloL (COREG) tablet 25 mg [[id number]] Ordering Provider: Parris Stoo NP Status: Dispensed Ordered On: 12/12/23 1241 Start: 12/12/23 1800 Ordered Dose (Remaining/Total): 25 mg (--/--) Route: oral Frequency: 2 times daily with meals (bkfst, dinner) Ordered Rate/Order Duration: -- / -- Timestamps Action Dose Route Other Information 12/14/23 0817 Given 25 mg oral Performed by: Dariana Washington RN Scanned Package: [id number] carvediloL (COREG) tablet 12.5 mg [[id number]] Ordering Provider: Parris Soto NP Status: Completed (Past End Date/Time) Ordered On: 12/12/23 1241 Starts/Ends: 12/12/23 1315 - 12/12/23 1420 Ordered Dose (Remaining/Total): 12.5 mg (0/1) Route: oral Frequency: Once Ordered Rate/Order Duration: -- / -- Timestamps Action Dose Route Other Information 12/12/23 1420 Given 12.5 mg oral Performed by: Clara Padilla RN Scanned Package: 60033-548-49 calcium carbonate (TUMS) chewable tablet 500 mg [[id number]] Ordering Provider: Parris Soto NP Status: Dispensed Ordered On: 12/12/23 1241 Start: 12/12/23 1315 Ordered Dose (Remaining/Total): 200 mg of elemental calcium (--/--) Route: oral Frequency: 2 times daily Ordered Rate/Order Duration: -- / -- Timestamps Action Dose Route Other Information 12/14/23 0817 Given 500 mg oral Performed by: Dariana Washington RN Scanned Package: 48993-306-17 sodium chloride 0.9% IVPB 0-250 mL [[id number]] Ordering Provider: Alia Ibarra MD Status: Completed (Past End Date/Time) Ordered On: 12/13/23 042 Starts/Ends: 12/13/23 050 - 12/13/23 0828 Ordered Dose (Remaining/Total): 0-250 mL (0/1) Route: intravenous Frequency: Once Ordered Rate/Order Duration: -- / -- Admin Instructions: Prime blood tubing and administer amount needed to clear line (usually 50-100 mL) after transfusion complete. Timestamps Action Dose Route Other Information 12/13/23 0828 New Bag 250 mL intravenous Performed by: Anh Savage RN Scanned Package: 7586-6748-71 sodium chloride 0.9% IVPB 0-250 mL [[id number]] Ordering Provider: Alia Ibarra MD Status: Completed [...] Performed by: Alfredo Lind RN Scanned Package: 2701-0665-43 magnesium sulfate 2 g/50 mL in water (premix) 2 g [[id number]] Ordering Provider: Alia Ibarra MD Status: Completed (Past End Date/Time) Ordered On: 12/13/232204 Starts/Ends: 12/13/232244 - 12/13/23 2340 Ordered Dose (Remaining/Total): 2 g (0/1) Route: intravenous Frequency: Once Ordered Rate/Order Duration: -- / 60 Minutes Timestamps Action Dose / Duration Route Other Information 12/13/23 224 New Bag 2 g 60 Minutes intravenous Performed by: Alfredo Lind RN Scanned Package: 65449-553-32 bisacodyL (DULCOLAX) suppository 10 mg [[id number]] Ordering Provider: Parris Soto NP Status: Dispensed Ordered On: 12/14/23904 Starts/Ends: 12/14/23944 - 12/15/23 0945 Ordered Dose (Remaining/Total): 10 mg (1/) Route: rectal Frequency: Once Ordered Rate/Order Duration: -- / -- (No admins scheduled or recorded for this medication) magnesium citrate oral solution 296 mL [[id number]] Ordering Provider: Parris Soto NP Status: Completed (Past End Date/Time) Ordered On: 12/14/23904 Starts/Ends: 12/14/23944 - 12/14/23 1013 Ordered Dose (Remaining/Total): 296 mL (0/1) Route: oral Frequency: Once Ordered Rate/Order Duration: -- / -- Timestamps Action Dose Route Other Information 12/14/23 1013 Given 296 mL oral Performed by: Dariana Washington RN Scanned Package: 66854-050-52 , OT Eval and Treat Last 72 [...] -ML -- -- 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 -ML -- -- Home ADL Equipment-Currently Using -- None -ML -- -- Level of [place] -- Independent with ADLs;Independent functional transfers;Independent with ambulation;Independent with homemaking with ambulation -ML -- -- Lives With -- Alone -ML -- -- Receives Help From -- Family;Neighbor son may be able to stay with Pt signal timer -ML -- -- Driving -- Yes -ML -- -- Mode of Transportation -- Car -ML -- -- ADL Assistance -- Independent -ML -- -- Instrumental ADL (IADL) Assistance -- Independent -ML -- -- Vocational/Occupation -- Retired -ML -- -- Type of Occupation -- [employer] -ML -- -- Fall within the last [...] and address after me -- Miguel Carrasquillo [address] [place] [address] -ML -- -- Without looking at the [...] ---- OT Recommendation -- Inpatient Rehab Facility - -- -- Patient at high risk for [...] 02/02/23 - OT Treatment Row Name 12/14/23 09 OT Received On 12/14/23 -ER Precautions Fall [...] (r) MB (c) -- -AR Level of [place] Independent with ADLs;Independent functional transfers;Independent with ambulation -BA (r) MB (c) -- -AR Lives With Alone -BA (r) MB (c) -- -AR Receives Help From Family;Neighbor Cadd Operator assist -BA (r) MB (c) -- -AR [...] 0 -BA (r) MB (c) -- 9. 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 [facility] Geriatric Trauma Service Initial Geriatric Assessment [...] the Shift: VSS, pain managed, I/O, bath Skilled Nursing Patient Centered Goal for Treatment: discharge Summary: [...] the Shift: VSS, pain managed, I/O, bath Test Department Helper Patient Centered Goal for Treatment: discharge Summary: [...] present for the conversation: patient and care crab steamer(s): Warp Knitter Advance Directive: Yes On file: Yes Power of Metal Fabricating Shop Helper Name: Primary: Homer Culp (Son) ([phone]) First alternate: Dolores Culp ([phone]) Summary of the conversation: RADHA notified by previous floor SW that AD/ DPOA paperwork has been provided and and completed. Patient A&O X 4 and agreeable to sing documentation.[facility]. Document notarized and RADHA faxed to medical records. Original document provided to patient, RADHA created copy for SW records. Outcome of [...] comfort and safety, comfort and safety, Is/Os Skilled Nursing Patient Centered Goal for Treatment: discharge Summary: VSS * Assessment & Plan Note - Emy Sanchez NP - 12/10/2023 3:35 PM CDT Associated Problem(s): Obesity (BMI 30-39.9) BMI 34.18 * Assessment & Plan Note [...] pain management, rest and comfort, I&O, safety Test Department Helper Patient Centered Goal for Treatment: discharge Summary: [...] pain management, rest and comfort, I&Os, safety Test Department Helper Patient Centered Goal for Treatment: discharge Summary: [...] pain management, rest and cmfort, I&O, NPO Test Department Helper Patient Centered Goal for Treatment: Discharge Summary: [...] in the femoral head across the femoral neck and intertrochanteric fracture line. The length was measured [...] level of the distal end of the plate around the stem of the real femoral replacement. Skin, subcutaneous tissue, fascia, and iliotibialband were incised, then the quadriceps was split and a Alcazar elevator was passed to create an anterior and posterior plane for passage of the cerclage cable. The percutaneous Passer was then carefullyplaced around the femur remaining in contact with [...] Cuba Humphrey MD - Fellow Anesthesiologist: Axel yRan MD; Endy Shanks MD AWS ARCHITECT: Shagufta Finch CRNA Student Nurse Fish Packer: Kevin Larios Regional Truck Driver: Uri Willams RN; Ayleen Espinoza RN Physician Ballet Master/Mistress: Jermaine Jaimes PA Scrub: Bethel Stevens ST DATE OF SURGERY : 12/09/2023 Preoperative Diagnosis: Pre-op Diagnosis * Closed nondisplaced intertrochanteric fracture of left femur, initial encounter ([facility]) [S72.145A] Postoperative Diagnosis: Post-op Diagnosis * Closed nondisplaced intertrochanteric fracture of left femur, initial encounter ([facility]) [H01.309A] Procedure(s): Procedure(s) (LRB): OPEN REDUCTION INTERNAL FIXATION LEFT INTERTROCHANTERIC FEMUR FRACTURE (Left) Operative Findings: IT fracture Estimated Blood Loss: 150 Intraoperative Fluids: 500 mls Specimens: No specimen collected in procedure Implants: Implant Name Type Inv. Item Serial No. Qa Manager Lot No. [id number] No. Used Action SYNTHES Dhs/dcp 174mm 38mm 10 Hole Hip Condyle 130d Standard Barrel Plate 281.010S - [id number] SYNTHES Dhs/dcp 174mm 38mm 10 Hole Hip Condyle 130d Standard Barrel Plate 281.010S Synthes [id number] Left 1 Implanted SYNTHES 4.5mm 8mm 38mm Self Tap Large Hexagonal Socket Cortex Screw Bone 214.838 - [id number] SYNTHES 4.5mm 8mm 38mm Self Tap Large Hexagonal Socket Cortex Screw Bone 214.838 Synthes Left 1 Implanted SYNTHES 4.5mm 8mm 40mm Self Tap Large Hexagonal Socket Cortex Screw Bone 214.840 - [id number] Screw SYNTHES 4.5mm 8mm 40mm Self Tap Large Hexagonal Socket Cortex Screw Bone 214.840 Synthes Left 1 Implanted SYNTHES Dhs Dcs 36mm Compression Hip Condylar Screw Bone Stainless Steel 280.990 - [id number] SYNTHES Dhs Dcs 36mm Compression Hip Condylar Screw Bone Stainless Steel 280.990 Synthes Left 1 Implanted SYNTHES 1.7mm 750mm Crimp Cerclage Cable Orthopedic Stainless Steel 298.801.01S - [id number] SYNTHES 1.7mm 750mm Crimp Cerclage Cable Orthopedic Stainless Steel 298.801.01S [employer] [id number] Left 1 Implanted SYNTHES Dhs Dcs 12mm 8mm 2.7mm 90mm 22mm Lag Cannulated Hip Condylar 280.290 - [id number] SYNTHES Dhs Dcs 12mm 8mm 2.7mm 90mm [...] transport arranged?: No (12/09/231330) Health Insurance Coverage: [facility] healthcare Medicare Prescription Coverage: yes Pharmacy: [facility]/pharmacy #[id number] [place] [id number] [address] Primary Care Provider: Cuba Larsen MD Prior to Admission: Functional Status: Independent with ADLs Primary Caregiver: Self Support System: Family members Home Care Services: No Outpatient Services: No Durable Medical Equipment: None Living Arrangements: Alone Type of Residence: Private residence Steps in home?: Yes, Outside of home Number of steps outside: 5 steps Medication management: Independent (12/09/231330) Potential discharge needs include: table games shift manager will follow for post acute discharge needs [...] Collaboration with Patient, Provider, Direct Care Nurse, Warp Knitter, and other members of theHealth Care Team to assure needed interventions completed. 2. Return patient to optimal level of self-care post discharge. 3. Help Desk Support Specialist will follow for Discharge Planning - interventions [...] Hgb stable at 7.7 (7.7), DC to [facility] Treatment Plan: done 12/15 * Assessment & Plan Note - Emy Sanchez NP - 12/09/2023 6:13 AM CDT Associated Problem(s): Encounter for medication review Medications reviewed and updated in admissions tab Home pharmacy [facility] * Assessment & Plan Note - [...] - 12/09/2023 6:10 AM CDT Associated Problem(s): Longstanding persistent atrial fibrillation (CMS/HCC) (HCC) Holding home eliquis and Carvedilol 12/10 A fib controlled HR 100s, restarting Coreg 12.5 mg PO BID (home dose 50 mg PO BID) CTM 12/11 HR 90s a fib rate controlled, continue Coreg 25 mg PO BID 12/13 remains rate controlled 90s, continue Coreg 25 mg PO BID Follow up scheduled: [facility] Cardiology 01/31 at 1:20 * Plan of Care - Christofer Robison - 12/09/2023 2:04 AM CDT Goals: Clinical Goals for the Shift: Finish admission Skilled Nursing Patient Centered Goal for Treatment: Discharge Summary: [...] prophylaxis- resume home Eliquis at discharged -[facility] referral, started Vitamin D Resume home anticoagulation [...] fascia iliaca block Dispo: anticipate admission to S ED Course as of 12/08/231 Time: 12/07 1124 Comment: ED attending-Cecile. 83 [...] admit. By: Dick Nova MD Time: 12/07 4572 Comment: Discussed FICB with ortho, they are [...] MORE VIEWS ED 12/08/2023 7:33 PM CDT [facility] CRITICAL CARE ILL/INJURED PATIENT INIT 30-74 MIN [...] - DEVICE Final Result Performing Organization Address City/[facility]/ZIP Co de Phone Number [facility] [place] [address] * (ABNORMAL) POCT glucose (12/16/2023 11:18 AM CDT) Pathologist [facility] Glucose, POC 286(H) 70 - 199 mg/dL Blood 12/16/2023 11:1 8 AM CDT 12/16/2023 11:18 AM CDT Kevin Corrigan MD LAB POCT ORDERABLES - DEVICE Final Result [facility] [place] [address] * COVID-19 Coronavirus RNA Nasopharyngeal (12/16/2023 10:15 AM CDT) COVID-[address] [facility] Nasopharyngeal 12/16/2023 10 :15 AM CDT 12/16/2023 10:33 AM CDT Narrative [facility] - 12/16/2023 11:27 AM CDT Is the patient experiencing any symptoms consistent with COVID (eg. Fever, cough, shortness of breath)?->No What is the reason for testing?->Screening for post-acute care placement ??Interpretive data Testing performed by [facility] ([phone]). This test is performed using the [employer] Xpert Xpress CoV-2 plus assay. This is a real-time RT-PCR test intended for the qualitative detection of nucleic acid from the SARS-CoV-2. This assay has been cleared by the [place] Food and Drug administration. The performance characteristics have been verified by the [facility]. ??Results must be considered in the clinical context, and a negative result does not rule out infection. Interpretive data last revised 2023. Danette Causey NP LAB MICROBIOLOGY - GENE RAL ORDERABLES Final Result Performing Organization Address City/[facility]/ZIP Co de Phone Number [facility] [place] [address] [facility] * Type and screen (12/16/2023 9:21 AM CDT) Pathologist [facility] Gian, indirect Negative ABO Rh O Positive [facility] Blood 12/16/2023 9:21 AM CDT 12/16/2023 9:35 AM CDT Narrative [facility] - 12/16/2023 10:34 AM CDT Has the patient had Daratumumab or Isatuximab in the past 6 months?->Unknown Danette Causey NP LAB BLOOD BANK TEST ORD ERABLES Final Result [facility] [place] [address] * (ABNORMAL) CBC without differential (12/16/2023 8:20 AM CDT) Pathologist [facility] WBC 8.5 3.8 - 9.9 K/cumm Hgb 7.7(L) 11.9 - 15.5 g/dL [facility] Hct 23.4(L) 35.6 - 45.5 % [facility] Plt 237 150 - 400 K/cumm [facility] MPV 9.7 9.1 - 12.3 fL [facility] RBC 2.43(L) 3.90 - 5.20 M/cumm [facility] MCV 96.3 81.3 - 96.4 fL [facility] MCH 31.7 27.1 - 33.3 pg [facility] MCHC 32.9 32.3 - 35.7 g/dL [facility] RDW CV 15.4(H) 11.1 - 14.9 % [facility] RDW SD 52.3(H) 35.7 - 48.1 fL [facility] NRBC abs 0.06(H) 0.00 - 0.01 K/cumm [facility] Blood 12/16/2023 8:20 AM CDT 12/16/2023 8:29 AM CDT us Danette Causey NP LAB BLOOD ORDERABLES Fi nal Result [facility] [place] [address] * Mislabeled Test (12/16/2023 8:14 AM CDT) Location Other location Reason Label discrepancy [facility] Mislabel resolution Testing canceled [facility] Blood 12/16/2023 8:14 AM CDT 12/16/2023 8:30 AM CDT us Kevin Corrigan MD LAB BLOOD ORDERABLES F inal Result [facility] [place] [place] [address] * POCT glucose (12/16/2023 7:50 AM CDT) Glucose, POC 176 70 - 199 mg/dL Blood 12/16/2023 7:50 AM CDT 12/16/2023 7:50 AM CDT Kevin Corrigan MD LAB POCT ORDERABLES - DEVICE Final Result Performing Organization Address [facility] de Phone Number [facility] [place] [address] * Potassium, whole blood (12/15/2023 11:54 PM CDT) [facility] Potassium, bld 4.8 3.3 - 4.9 mmol/L Blood 12/15/2023 11:5 4 PM CDT 12/16/2023 12:07 AM CDT Kevin Corrigan MD LAB BLOOD ORDERABLES F inal Result Performing Organization Address [facility] de Phone Number [facility] [place] [address] * (ABNORMAL) POCT glucose (12/15/2023 9:08 PM CDT) [facility] Glucose, POC 223(H) 70 - 199 mg/dL Blood 12/15/2023 9:08 PM CDT 12/15/2023 9:08 PM CDT Kevin Corrigan MD LAB POCT ORDERABLES - DEVICE Final Result Performing Organization Address [facility] de Phone Number [facility] [place] [address] * eGFR (12/15/2023 8:48 PM CDT) [facility] eGFR 89 >=60 mL/min/1. 73 m2 Comment: [...] ORDERABLES F inal Result Performing Organization Address City/[facility] Co de Phone Number MINDI [facility] [place] [address] * Phosphorus (12/15/2023 8:48 PM CDT) Pathologist [facility] Phosphorus, pl 3.5 2.3 - 4.5 mg/dL Blood 12/15/2023 8:48 PM CDT 12/15/2023 9:05 PM CDT us Kevin Corrigan MD LAB BLOOD ORDERABLES F inal Result Performing Organization Address [facility] Co de Phone Number [facility] [place] [address] * Magnesium (12/15/2023 8:48 PM CDT) Pathologist [facility] Magnesium 2.0 1.4 - 2.5 mg/dL Blood 12/15/2023 8:48 PM CDT 12/15/2023 9:05 PM CDT Kevin Corrigan MD LAB BLOOD ORDERABLES F inal Result [facility] Department [place] [address] * (ABNORMAL) Basic metabolic panel (12/15/2023 8:48 PM CDT) [facility] Sodium 129(L) 135 - 145 mmol/L Potassium, pl 5.3(H) 3.3 - 4.9 mmol/L [facility] Chloride 95(L) 97 - 110 mmol/L [facility] CO2 27 22 - 32 mmol/L [facility] Anion gap 7 2 - 15 mmol/L [facility] BUN 26(H) 6 - 25 mg/dL [facility] Creatinine 0.62 0.60 - 1.10 mg/dL [facility] Glucose 214(H) 70 - 199 mg/dL [facility] Comment: Interpretive Data Fasting glucose >/= 126 [...] 2022. Calcium 9.1 8.5 - 10.3 mg/dL [facility] Blood 12/15/2023 8:48 PM CDT 12/15/2023 9:05 PM CDT Kevin Corrigan MD LAB BLOOD ORDERABLES F inal Result Performing Organization Address [facility]/ZIP Co de Phone Number [facility] Department [place] [address] * (ABNORMAL) CBC without differential (12/15/2023 8:48 PM CDT) Pathologist [facility] WBC 7.8 3.8 - 9.9 K/cumm Hgb 7.7(L) 11.9 - 15.5 g/dL [facility] Hct 24.0(L) 35.6 - 45.5 % [facility] Plt 220 150 - 400 K/cumm [facility] MPV 9.6 9.1 - 12.3 fL [facility] RBC 2.51(L) 3.90 - 5.20 M/cumm [facility] MCV 95.6 81.3 - 96.4 fL [facility] MCH 30.7 27.1 - 33.3 pg [facility] MCHC 32.1(L) 32.3 - 35.7 g/dL [facility] RDW CV 15.4(H) 11.1 - 14.9 % [facility] RDW SD 51.8(H) 35.7 - 48.1 fL [facility] NRBC abs 0.08(H) 0.00 - 0.01 K/cumm [facility] Blood 12/15/2023 8:48 PM CDT 12/15/2023 9:05 PM CDT Kevin Corrigan MD LAB BLOOD ORDERABLES F inal Result Performing Organization Address [facility]/State/ZIP Co de Phone Number [facility] Department [place] [address] * POCT glucose (12/15/2023 5:43 PM CDT) Pathologist [facility] Glucose, POC 196 70 - 199 mg/dL Blood 12/15/2023 5:43 PM CDT 12/15/2023 5:43 PM CDT Kevin Corrigan MD LAB POCT ORDERABLES - DEVICE Final Result Performing Organization Address [facility] de Phone Number [facility] [place] [address] * (ABNORMAL) POCT glucose (12/15/2023 11:37 AM CDT) Glucose, POC 240(H) 70 - 199 mg/dL Blood 12/15/2023 11:3 7 AM CDT 12/15/2023 11:37 AM CDT Kevin Corrigan MD LAB POCT ORDERABLES - DEVICE Final Result Performing Organization Address [facility] de Phone Number [facility] [place] [address] * POCT glucose (12/15/2023 7:47 AM CDT) Glucose, POC 183 70 - 199 mg/dL Blood 12/15/2023 7:47 AM CDT 12/15/2023 7:47 AM CDT Kevin Corrigan MD LAB POCT ORDERABLES - DEVICE Final Result Performing Organization Address [facility] de Phone Number [facility] [place] [address] * (ABNORMAL) Potassium, whole blood (12/15/2023 12:25 AM CDT) Potassium, bld 5.0(H) 3.3 - 4.9 mmol/L Blood 12/15/2023 12:2 5 AM CDT 12/15/2023 12:35 AM CDT Kevin Corrigan MD LAB BLOOD ORDERABLES F inal Result Performing Organization Address [facility]/ZIP Co de Phone Number [facility] Department [place] [address] * eGFR (12/14/2023 9:51 PM CDT) [facility] eGFR >90 >=60 mL/min/1. 73 m2 Comment: [...] ORDERABLES F inal Result MINDI [facility] Department [place] [address] * (ABNORMAL) POCT glucose (12/14/2023 9:51 PM CDT) [facility] Glucose, POC 200(H) 70 - 199 mg/dL Blood 12/14/2023 9:51 PM CDT 12/14/2023 9:51 PM CDT Kevin Corrigan MD LAB POCT ORDERABLES - DEVICE Final Result Performing Organization Address [facility] de Phone Number [facility] [place] [address] * Phosphorus (12/14/2023 9:51 PM CDT) [facility] Phosphorus, pl 2.4 2.3 - 4.5 mg/dL Blood 12/14/2023 9:51 PM CDT 12/14/2023 10:27 PM CDT Keivn Corrigan MD LAB BLOOD ORDERABLES F inal Result Performing Organization Address [facility] de Phone Number [facility] [place] [address] * Magnesium (12/14/2023 9:51 PM CDT) [facility] Magnesium 2.1 1.4 - 2.5 mg/dL Blood 12/14/2023 9:51 PM CDT 12/14/2023 10:27 PM CDT Result [facility] Kevin Corrigan MD LAB BLOOD ORDERABLES F inal Result Performing Organization Address [facility] de Phone Number [facility] [place] [address] * (ABNORMAL) Basic metabolic panel (12/14/2023 9:51 PM CDT) [facility] Sodium 128(L) 135 - 145 mmol/L Potassium, pl 5.3(H) 3.3 - 4.9 mmol/L [facility] Chloride 97 97 - 110 mmol/L [facility] CO2 28 22 - 32 mmol/L [facility] Anion gap 3 2 - 15 mmol/L [facility] BUN 21 6 - 25 mg/dL [facility] Creatinine 0.53(L) 0.60 - 1.10 mg/dL [facility] Glucose 180 70 - 199 mg/dL [facility] Comment: Interpretive Data Fasting glucose >/= 126 [...] 2022. Calcium 8.9 8.5 - 10.3 mg/dL [facility] Blood 12/14/2023 9:51 PM CDT 12/14/2023 10:27 PM CDT Kevin Corrigan MD LAB BLOOD ORDERABLES F inal Result [facility] [place] [address] * (ABNORMAL) CBC without differential (12/14/2023 9:51 PM CDT) WBC 7.3 3.8 - 9.9 K/cumm Hgb 8.3(L) 11.9 - 15.5 g/dL [facility] Hct 24.9(L) 35.6 - 45.5 % [facility] Plt 177 150 - 400 K/cumm [facility] MPV 9.6 9.1 - 12.3 fL [facility] RBC 2.63(L) 3.90 - 5.20 M/cumm [facility] MCV 94.7 81.3 - 96.4 fL [facility] MCH 31.6 27.1 - 33.3 pg [facility] MCHC 33.3 32.3 - 35.7 g/dL [facility] RDW CV 15.4(H) 11.1 - 14.9 % [facility] RDW SD 51.4(H) 35.7 - 48.1 fL [facility] NRBC abs 0.04(H) 0.00 - 0.01 K/cumm [facility] Blood 12/14/2023 9:51 PM CDT 12/14/2023 10:27 PM CDT Kevin Corrigan MD LAB BLOOD ORDERABLES F inal Result Performing Organization Address City/[facility]/ZIP Co de Phone Number [facility] [place] [address] * POCT glucose (12/14/2023 5:25 PM CDT) Glucose, POC 173 70 - 199 mg/dL Blood 12/14/2023 5:25 PM CDT 12/14/2023 5:25 PM CDT Kevin Corrigan MD LAB POCT ORDERABLES - DEVICE Final Result Performing Organization Address City/[facility] Co de Phone Number [facility] [place] [address] * (ABNORMAL) POCT glucose (12/14/2023 11:51 AM CDT) Glucose, POC 267(H) 70 - 199 mg/dL Blood 12/14/2023 11:5 1 AM CDT 12/14/2023 11:51 AM CDT Kevin Corrigan MD LAB POCT ORDERABLES - DEVICE Final Result Performing Organization Address City/[facility]/ZIP Co de Phone Number [facility] [place] [address] * (ABNORMAL) POCT glucose (12/14/2023 8:16 AM CDT) [facility] Glucose, POC 200(H) 70 - 199 mg/dL Blood 12/14/2023 8:16 AM CDT 12/14/2023 8:16 AM CDT Kevin Corrigan MD LAB POCT ORDERABLES - DEVICE Final Result Performing Organization Address City/State/[facility] Co de Phone Number [facility] [place] [address] * (ABNORMAL) CBC without differential (12/14/2023 3:20 AM CDT) [facility] WBC 7.5 3.8 - 9.9 K/cumm Hgb 8.1(L) 11.9 - 15.5 g/dL [facility] Hct 24.8(L) 35.6 - 45.5 % [facility] Plt 170 150 - 400 K/cumm [facility] MPV 10.1 9.1 - 12.3 fL [facility] RBC 2.63(L) 3.90 - 5.20 M/cumm [facility] MCV 94.3 81.3 - 96.4 fL [facility] MCH 30.8 27.1 - 33.3 pg [facility] MCHC 32.7 32.3 - 35.7 g/dL [facility] RDW CV 15.0(H) 11.1 - 14.9 % [facility] RDW SD 50.9(H) 35.7 - 48.1 fL [facility] NRBC abs 0.02(H) 0.00 - 0.01 K/cumm [facility] Blood 12/14/2023 3:20 AM CDT 12/14/2023 4:09 AM CDT Narrative [facility] - 12/14/2023 4:16 AM CDT 1 hour after transfusion of red blood cells is complete Kevin Corrigan MD LAB BLOOD ORDERABLES F inal Result [facility] [place] [address] * POCT glucose (12/14/2023 3:12 AM CDT) Glucose, POC 170 70 - 199 mg/dL Blood 12/14/2023 3:12 AM CDT 12/14/2023 3:12 AM CDT Kevin Corrigan MD LAB POCT ORDERABLES - DEVICE Final Result Performing Organization Address City/[facility]/[place] [address] * Transfuse RBC (12/14/2023 2:21 AM CDT) Blood Kevin Corrigan MD BLOOD TRANSFUSION ORDE RABLES Final Result Performing Organization Address City/[facility]/[place] [address] * Transfuse RBC: 1 Units (12/14/2023 2:21 AM CDT) Blood Kevin Corrigan MD BLOOD TRANSFUSION ORDE RABLES Final Result * POCT glucose (12/13/2023 11:29 PM CDT) Glucose, POC 185 70 - 199 mg/dL Blood 12/13/2023 11:2 9 PM CDT 12/13/2023 11:29 PM CDT Kevin Corrigan MD LAB POCT ORDERABLES - DEVICE Final Result [facility] [place] [address] * (ABNORMAL) Potassium, whole blood (12/13/2023 10:32 PM CDT) [facility] Potassium, bld 5.1(H) 3.3 - 4.9 mmol/L Blood 12/13/2023 10:3 2 PM CDT 12/13/2023 10:45 PM CDT Kevin Corrigan MD LAB BLOOD ORDERABLES F inal Result Performing Organization Address [facility]/ZIP Co de Phone Number [facility] Department [place] [address] * Prepare RBC: 1 Units (12/13/2023 9:45 PM CDT) [facility] Product code [id number] Unit Number [id number] [facility] Product Blood Type OPOS [facility] Dispense Status PRESUMED TRANSFUSED [facility] Blood 12/13/2023 9:45 PM CDT 12/13/2023 9:45 PM CDT Narrative [facility] - 12/14/2023 11:10 AM CDT Are special requirements needed? (All products are leukoreduced and CMV- safe)- >No Date required:-[id number] LRRBC # of [id number] Reasons:-Hgb <7 g/dL} Kevin Corrigan MD BLOOD BANK PRODUCT ORD ERABLES Final Result Performing Organization Address [facility]/State/ZIP Co de Phone Number [facility] [place] [address] * eGFR (12/13/2023 9:00 PM CDT) [facility] eGFR 89 >=60 mL/min/1. 73 m2 Comment: [...] ORDERABLES F inal Result Performing Organization Address City/[facility]/ZIP Co de Phone Number [facility]I [facility] Department [place] [address] * (ABNORMAL) Phosphorus (12/13/2023 9:00 PM CDT) Phosphorus, pl 2.1(L) 2.3 - 4.5 mg/dL Blood 12/13/2023 9:00 PM CDT 12/13/2023 9:22 PM CDT Kevin Corrigan MD LAB BLOOD ORDERABLES F inal Result Performing Organization Address City/[facility]/ZIP Co de Phone Number [facility] [place] [address] * Magnesium (12/13/2023 9:00 PM CDT) Magnesium 1.7 1.4 - 2.5 mg/dL Blood 12/13/2023 9:00 PM CDT 12/13/2023 9:22 PM CDT Kevin Corrigan MD LAB BLOOD ORDERABLES F inal Result [facility] [place] [address] * (ABNORMAL) Basic metabolic panel (12/13/2023 9:00 PM CDT) Pathologist [facility] Sodium 131(L) 135 - 145 mmol/L Potassium, pl 5.3(H) 3.3 - 4.9 mmol/L [facility] Chloride 101 97 - 110 mmol/L [facility] CO2 26 22 - 32 mmol/L [facility] Anion gap 4 2 - 15 mmol/L [facility] BUN 28(H) 6 - 25 mg/dL [facility] Creatinine 0.61 0.60 - 1.10 mg/dL [facility] Glucose 184 70 - 199 mg/dL [facility] Comment: Interpretive Data Fasting glucose >/= 126 [...] 2022. Calcium 8.5 8.5 - 10.3 mg/dL [facility] Blood 12/13/2023 9:00 PM CDT 12/13/2023 9:22 PM CDT Kevin Corrigan MD LAB BLOOD ORDERABLES F inal Result Performing Organization Address [facility] Co de Phone Number [facility] [place] [address] * (ABNORMAL) CBC without differential (12/13/2023 9:00 PM CDT) WBC 7.4 3.8 - 9.9 K/cumm Hgb 7.0(L) 11.9 - 15.5 g/dL [facility] Hct 21.3(L) 35.6 - 45.5 % [facility] Plt 158 150 - 400 K/cumm [facility] MPV 9.9 9.1 - 12.3 fL [facility] RBC 2.23(L) 3.90 - 5.20 M/cumm [facility] MCV 95.5 81.3 - 96.4 fL [facility] MCH 31.4 27.1 - 33.3 pg [facility] MCHC 32.9 32.3 - 35.7 g/dL [facility] RDW CV 14.9 11.1 - 14.9 % [facility] RDW SD 51.1(H) 35.7 - 48.1 fL [facility] NRBC abs 0.02(H) 0.00 - 0.01 K/cumm [facility] Blood 12/13/2023 9:00 PM CDT 12/13/2023 9:22 PM CDT Kevin Corrigan MD LAB BLOOD ORDERABLES F inal Result Performing Organization Address City/[facility]/ZIP Co de Phone Number [facility] [place] [address] * POCT glucose (12/13/2023 8:16 PM CDT) Glucose, POC 183 70 - 199 mg/dL Blood 12/13/2023 8:16 PM CDT 12/13/2023 8:16 PM CDT us Kevin Corrigan MD LAB POCT ORDERABLES - DEVICE Final Result Performing Organization Address [facility] Co de Phone Number [facility] [place] [address] * POCT glucose (12/13/2023 4:15 PM CDT) Glucose, POC 192 70 - 199 mg/dL Blood 12/13/2023 4:15 PM CDT 12/13/2023 4:15 PM CDT Kevin Corrigan MD LAB POCT ORDERABLES - DEVICE Final Result Performing Organization Address [facility] de Phone Number [facility] [place] [address] * eGFR (12/13/2023 1:33 PM CDT) eGFR [...] Soto NP LAB BLOOD ORDERABLES Final Result [facility] [place] [address] * Differential, auto (12/13/2023 1:33 PM CDT) Neutrophil abs 5.1 1.5 - 6.5 K/cumm Imm gran abs 0.1 0.0 - 0.1 K/cumm [facility] Lymphocyte abs 1.3 0.8 - 3.3 K/cumm [facility] Monocyte abs 0.6 0.2 - 0.8 K/cumm [facility] Eosinophil abs 0.0 0.0 - 0.5 K/cumm [facility] Basophil abs 0.0 0.0 - 0.1 K/cumm [facility] Neutrophil pct 71.9 % [facility] Comment: Interpretive Data Percent cell count reference ranges are not reported, since discordance with absolute values may lead to misinterpretation of CBC data. Current Interpretive Data was last revised on 2017. Imm gran pct 0.7 % [facility] Comment: Interpretive Data Percent cell count reference ranges are not reported, since discordance with absolute values may lead to misinterpretation of CBC data. Current Interpretive Data was last revised on 2017. Lymphocyte pct 19.0 % [facility] Comment: Interpretive Data Percent cell count reference ranges are not reported, since discordance with absolute values may lead to misinterpretation of CBC data. Current Interpretive Data was last revised on 2017. Monocyte pct 7.8 % [facility] Comment: Interpretive Data Percent cell count reference ranges are not reported, since discordance with absolute values may lead to misinterpretation of CBC data. Current Interpretive Data was last revised on 2017. Eosinophil pct 0.3 % [facility] Comment: Interpretive Data Percent cell count reference ranges are not reported, since discordance with absolute values may lead to misinterpretation of CBC data. Current Interpretive Data was last revised on 2017. Basophil pct 0.3 % [facility] Comment: Interpretive Data Percent cell count reference ranges are not reported, since discordance with absolute values may lead to misinterpretation of CBC data. Current Interpretive Data was last revised on 2017. Blood 12/13/2023 1:33 PM CDT 12/13/2023 1:49 PM CDT Parris Soto NP LAB BLOOD ORDERABLES Final Result [facility] Department [place] [address] * (ABNORMAL) Basic metabolic panel (12/13/2023 1:33 PM CDT) Sodium 132(L) 135 - 145 mmol/L Potassium, pl 5.0(H) 3.3 - 4.9 mmol/L [facility] Chloride 97 97 - 110 mmol/L [facility] CO2 26 22 - 32 mmol/L [facility] Anion gap 9 2 - 15 mmol/L [facility] BUN 31(H) 6 - 25 mg/dL [facility] Creatinine 0.63 0.60 - 1.10 mg/dL [facility] Glucose 207(H) 70 - 199 mg/dL [facility] Comment: Interpretive Data Fasting glucose >/= 126 [...] 2022. Calcium 8.6 8.5 - 10.3 mg/dL [facility] Blood 12/13/2023 1:33 PM CDT 12/13/2023 1:49 PM CDT us Parris Soto NP LAB BLOOD ORDERABLES Final Result Performing Organization Address [facility]/ZIP Co de Phone Number [facility] [place] [address] * (ABNORMAL) CBC with auto differential (12/13/2023 1:33 PM CDT) [facility] WBC 7.1 3.8 - 9.9 K/cumm Hgb 7.1(L) 11.9 - 15.5 g/dL [facility] Hct 21.9(L) 35.6 - 45.5 % [facility] Plt 166 150 - 400 K/cumm [facility] MPV 9.8 9.1 - 12.3 fL [facility] RBC 2.26(L) 3.90 - 5.20 M/cumm [facility] MCV 96.9(H) 81.3 - 96.4 fL [facility] MCH 31.4 27.1 - 33.3 pg [facility] MCHC 32.4 32.3 - 35.7 g/dL [facility] RDW CV 14.9 11.1 - 14.9 % [facility] RDW SD 52.4(H) 35.7 - 48.1 fL [facility] NRBC abs 0.02(H) 0.00 - 0.01 K/cumm [facility] Blood 12/13/2023 1:33 PM CDT 12/13/2023 1:49 PM CDT us Parris Soto NP LAB BLOOD ORDERABLES Final Result [facility] [place], [place] [id number] * (ABNORMAL) POCT glucose (12/13/2023 12:14 PM CDT) Glucose, POC 212(H) 70 - 199 mg/dL Blood 12/13/2023 12:1 4 PM CDT 12/13/2023 12:14 PM CDT Kevin Corrigan MD LAB POCT ORDERABLES - DEVICE Final Result Performing Organization Address [facility] de Phone Number [facility] [place] [address] * Transfuse RBC (12/13/2023 9:49 AM CDT) Blood Kevin Corrigan MD BLOOD TRANSFUSION ORDE RABLES Final Result Performing Organization Address [facility] de Phone Number [facility] [place] [address] * Transfuse RBC: 1 Units (12/13/2023 9:49 AM CDT) Blood Kevin Corrigan MD BLOOD TRANSFUSION ORDE RABLES Final Result * POCT glucose (12/13/2023 8:25 AM CDT) Glucose, POC 175 70 - 199 mg/dL Blood 12/13/2023 8:25 AM CDT 12/13/2023 8:25 AM CDT Kevin Corrigan MD LAB POCT ORDERABLES - DEVICE Final Result Performing Organization Address [facility] Co de Phone Number [facility] [place] [address] * ECG 12 lead (12/13/2023 5:50 AM CDT) Ventricular Rate EKG/Min 119 BPM [facility] Atrial Rate 44 BPM [facility] QRS-Interval (MSEC) 88 ms [facility] QT-Interval (MSEC) 318 ms [facility] QTc 447 ms [facility] R Vallecitos 29 degrees [facility] T Vallecitos -29 degrees [facility] Diagnosis Atrial fibrillation with rapid ventricular response Cannot rule out Inferior infarct , age undetermined Abnormal ECG When compared with ECG of 12-DEC-2023 05:53, ST elevation now present in Inferior leads Confirmed by GREGORY CLINE M.D ([id number]) on 12/14/2023 12:31:24 PM [facility] 12/13/2023 5:50 AM CDT 12/14/2023 12:31 PM CDT Kevin Corrigan MD ECG ORDERABLES Final Result Performing Organization Address City/[facility]/ZIP Co de Phone Number [facility] * (ABNORMAL) Potassium, whole blood (12/13/2023 5:50 AM CDT) Potassium, bld 5.0(H) 3.3 - 4.9 mmol/L Blood 12/13/2023 5:50 AM CDT 12/13/2023 5:56 AM CDT Alia Ibarra MD LAB BLOOD ORDERABLES Final Resul t Performing Organization Address City/[facility]/ZIP Co de Phone Number [facility] Department [place] [address] * Type and screen (12/13/2023 4:58 AM CDT) ABO Rh O Positive Gian, indirect Negative [facility] Blood 12/13/2023 4:58 AM CDT 12/13/2023 5:12 AM CDT Narrative [facility] - 12/13/2023 6:03 AM CDT Has the patient had Daratumumab or Isatuximab in the past 6 months?->Unknown Kevin Corrigan MD LAB BLOOD BANK TEST OR DERABLES Final Result Performing Organization Address [facility] Co de Phone Number [facility] [place] [address] * POCT glucose (12/13/2023 4:55 AM CDT) [facility] Glucose, POC 194 70 - 199 mg/dL Blood 12/13/2023 4:55 AM CDT 12/13/2023 4:55 AM CDT Kevin Corrigan MD LAB POCT ORDERABLES - DEVICE Final Result Performing Organization Address [facility] de Phone Number [facility] [place] [address] * Prepare RBC: 1 Units (12/13/2023 4:19 AM CDT) [facility] Product code [id number] Unit Number [id number] [facility] Product Blood Type OPOS [facility] Dispense Status PRESUMED TRANSFUSED [facility] Blood 12/13/2023 4:19 AM CDT 12/13/2023 4:21 AM CDT Narrative [facility] - 12/14/2023 11:27 AM CDT Are special requirements needed? (All products are leukoreduced and CMV- safe)- >No Date required:-[id number] LRRBC # of [id number] Reasons:-Hgb <7 g/dL} us Kevin Corrigan MD BLOOD BANK PRODUCT ORD ERABLES Final Result Performing Organization Address [facility] Co de Phone Number [facility] [place] [address] * eGFR (12/13/2023 3:08 AM CDT) [facility] eGFR 89 >=60 mL/min/1. 73 m2 Comment: [...] Resul t Performing Organization Address [facility] Co de Phone Number [facility] Department [place] [address] * (ABNORMAL) Phosphorus (12/13/2023 3:08 AM CDT) Phosphorus, pl 1.5(L) 2.3 - 4.5 mg/dL Blood 12/13/2023 3:08 AM CDT 12/13/2023 3:29 AM CDT Alia Ibarra MD LAB BLOOD ORDERABLES Final Resul t Performing Organization Address City/[facility] Co de Phone Number [facility] Department [place] [address] * Magnesium (12/13/2023 3:08 AM CDT) [facility] Magnesium 1.8 1.4 - 2.5 mg/dL Blood 12/13/2023 3:08 AM CDT 12/13/2023 3:29 AM CDT us Alia Ibarra MD LAB BLOOD ORDERABLES Final Resul t Performing Organization Address City/State/[facility] Co de Phone Number [facility] [place] [address] * (ABNORMAL) CBC without differential (12/13/2023 3:08 AM CDT) [facility] WBC 7.2 3.8 - 9.9 K/cumm Hgb 6.2(C) 11.9 - 15.5 g/dL [facility] Comment:Consistent with prev ious results Hct 19.4(L) 35.6 - 45.5 % [facility] Plt 168 150 - 400 K/cumm [facility] MPV 10.6 9.1 - 12.3 fL [facility] RBC 2.00(L) 3.90 - 5.20 M/cumm [facility] MCV 97.0(H) 81.3 - 96.4 fL [facility] MCH 31.0 27.1 - 33.3 pg [facility] MCHC 32.0(L) 32.3 - 35.7 g/dL [facility] RDW CV 14.8 11.1 - 14.9 % [facility] RDW SD 51.5(H) 35.7 - 48.1 fL [facility] NRBC abs 0.00 0.00 - 0.01 K/cumm [facility] Blood 12/13/2023 3:08 AM CDT 12/13/2023 3:30 AM CDT us Alia Ibarra MD LAB BLOOD ORDERABLES Final Resul t [facility] Department [place] [address] * (ABNORMAL) Basic metabolic panel (12/13/2023 3:08 AM CDT) Sodium 136 135 - 145 mmol/L Potassium, pl 5.4(H) 3.3 - 4.9 mmol/L [facility] Chloride 102 97 - 110 mmol/L [facility] CO2 28 22 - 32 mmol/L [facility] Anion gap 6 2 - 15 mmol/L [facility] BUN 28(H) 6 - 25 mg/dL [facility] Creatinine 0.63 0.60 - 1.10 mg/dL [facility] Glucose 168 70 - 199 mg/dL [facility] Comment: Interpretive Data Fasting glucose >/= 126 [...] 2022. Calcium 8.7 8.5 - 10.3 mg/dL [facility] Blood 12/13/2023 3:08 AM CDT 12/13/2023 3:29 AM CDT us Alia Ibarra MD LAB BLOOD ORDERABLES Final Resul t [facility] Department [place] [address] * eGFR (12/13/2023 2:11 AM CDT) eGFR [...] ORDERABLES F inal Result Performing Organization Address City/[facility]/ZIP Co de Phone Number [facility] Department [place] [address] * (ABNORMAL) Phosphorus (12/13/2023 2:11 AM CDT) Phosphorus, pl 1.6(L) 2.3 - 4.5 mg/dL Blood 12/13/2023 2:11 AM CDT 12/13/2023 2:25 AM CDT Kevin Corrigan MD LAB BLOOD ORDERABLES F inal Result [facility] Department [place] [address] * Magnesium (12/13/2023 2:11 AM CDT) [facility] Magnesium 2.0 1.4 - 2.5 mg/dL Blood 12/13/2023 2:11 AM CDT 12/13/2023 2:25 AM CDT Kevni Corrigan MD LAB BLOOD ORDERABLES F inal Result [facility] [place] [address] * (ABNORMAL) Basic metabolic panel (12/13/2023 2:11 AM CDT) [facility] Sodium 133(L) 135 - 145 mmol/L Potassium, pl 5.3(H) 3.3 - 4.9 mmol/L [facility] Chloride 102 97 - 110 mmol/L [facility] CO2 29 22 - 32 mmol/L [facility] Anion gap 2 2 - 15 mmol/L [facility] BUN 29(H) 6 - 25 mg/dL [facility] Creatinine 0.63 0.60 - 1.10 mg/dL [facility] Glucose 166 70 - 199 mg/dL [facility] Comment: Interpretive Data Fasting glucose >/= 126 [...] 2022. Calcium 8.7 8.5 - 10.3 mg/dL [facility] Blood 12/13/2023 2:11 AM CDT 12/13/2023 2:25 AM CDT us Kevin Corrigan MD LAB BLOOD ORDERABLES F inal Result [facility] [place] [address] * CBC without differential (12/13/2023 2:11 AM CDT) WBC See Comment 3.8 - 9.9 Comment: Credited, collection error. Likely diluted specimen. Telephone report made to: Ren Petersen RN on 12/13/2023 02:46:51 CDT by PRAKASH . Hgb See Comment 11.9 - 15.5 [facility] Comment: Critical result called to and read back by REN PETERSEN RN on 12 13 2023 at 0242 to Yovanny Savage. Credited, collection error. Likely diluted specimen. Telephone report made to: Ren Petersen RN on 12/13/2023 02:46:51 CDT by PRAKASH . Hct See Comment 35.6 - 45.5 [facility] Comment: Credited, collection error. Likely diluted specimen. Telephone report made to: Ren Petersen RN on 12/13/2023 02:46:51 CDT by PRAKASH . Plt See Comment 150 - [address] [facility] Comment: Credited, collection error. Likely diluted specimen. Telephone report made to: Ren Petersen RN on 12/13/2023 02:46:51 CDT by PRAKASH . MPV See Comment 9.1 - 12.[address] [facility] Comment: Credited, collection error. Likely diluted specimen. Telephone report made to: Ren Petersen RN on 12/13/2023 02:46:51 CDT by PRAKASH . RBC See Comment 3.90 - 5.[address] [facility] Comment: Credited, collection error. Likely diluted specimen. Telephone report made to: Ren Petersen RN on 12/13/2023 02:46:51 CDT by PRAKASH . MCV See Comment 81.3 - 96.[address] [facility] Comment: Credited, collection error. Likely diluted specimen. Telephone report made to: Ren Petersen RN on 12/13/2023 02:46:51 CDT by PRAKASH . [facility] See Comment 27.1 - 33.3 [facility] Comment: Credited, collection error. Likely diluted specimen. Telephone report made to: Ren Petersen RN on 12/13/2023 02:46:51 CDT by PRAKASH . [facility] See Comment 32.3 - 35.7 [facility] [...] See Comment 0.00 - 0.01 K/cumm [facility] Comment: Credited, collection error. Likely diluted specimen. Telephone report made to: Ren Petersen RN on 12/13/2023 02:46:51 CDT by PRAKASH . Blood 12/13/2023 2:11 AM CDT 12/13/2023 2:25 AM CDT Kevin Corrigan MD LAB BLOOD ORDERABLES E dited Result - Final [facility] [place] [address] * (ABNORMAL) POCT glucose (12/12/2023 10:56 PM CDT) [facility] Glucose, POC 204(H) 70 - 199 mg/dL Blood 12/12/2023 10:5 6 PM CDT 12/12/2023 10:56 PM CDT Kevin Corrigan MD LAB POCT ORDERABLES - DEVICE Final Result Performing Organization Address [facility] Co de Phone Number [facility] [place] [address] * (ABNORMAL) POCT glucose (12/12/2023 7:51 PM CDT) Glucose, POC 225(H) 70 - 199 mg/dL Blood 12/12/2023 7:51 PM CDT 12/12/2023 7:51 PM CDT Kevin Corrigan MD LAB POCT ORDERABLES - DEVICE Final Result Performing Organization Address [facility] Co de Phone Number [facility] [place] [address] * (ABNORMAL) POCT glucose (12/12/2023 4:42 PM CDT) Glucose, POC 263(H) 70 - 199 mg/dL Blood 12/12/2023 4:42 PM CDT 12/12/2023 4:42 PM CDT Kevin Corrigan MD LAB POCT ORDERABLES - DEVICE Final Result Performing Organization Address [facility] Co de Phone Number [facility] [place] [address] * Potassium (12/12/2023 2:30 PM CDT) Potassium, pl 4.9 3.3 - 4.9 mmol/L Blood 12/12/2023 2:30 PM CDT 12/12/2023 2:50 PM [address]ative [facility] - 12/12/2023 3:12 PM CDT Provider to discontinue after two normal results. us Parris Soto NP LAB BLOOD ORDERABLES Final Result Performing Organization Address [facility] Co de Phone Number [facility] [place] [address] * (ABNORMAL) POCT glucose (12/12/2023 12:22 PM CDT) Glucose, POC 212(H) 70 - 199 mg/dL Blood 12/12/2023 12:2 2 PM CDT 12/12/2023 12:22 PM CDT us Kevin Corrigan MD LAB POCT ORDERABLES - DEVICE Final Result Performing Organization Address [facility] de Phone Number [facility] [place] [address] * Potassium, whole blood (12/12/2023 10:50 AM CDT) Potassium, bld 4.7 3.3 - 4.9 mmol/L Blood 12/12/2023 10:5 0 AM CDT 12/12/2023 10:57 AM CDT us Parris Soto NP LAB BLOOD ORDERABLES Final Result Performing Organization Address [facility] de Phone Number [facility] Department [place] [address] * Sodium, urine, random (12/12/2023 10:50 AM CDT) Sodium, ur 32 mmol/L Comment: Interpretive Data No reference range established. Current interpretive data was last revised 2018. Urine (Urine, Clean Catch) 12/12/2023 10:50 AM CDT 12/12/2023 10:57 AM CDT Parris Soto NP LAB URINE ORDERABLES Final Result Performing Organization Address [facility] de Phone Number [facility] [place] [address] * Potassium, urine, random (12/12/2023 10:50 AM CDT) Potassium conc, ur 37.5 mmol/L Comment: Interpretive Data No reference range established. Current interpretive data was last revised 2018. Urine (Urine, Clean Catch) 12/12/2023 10:50 AM CDT 12/12/2023 10:57 AM CDT Parris Soto NP LAB URINE ORDERABLES Final Result Performing Organization Address [facility] de Phone Number [facility] [place] [address] * Chloride, urine, random (12/12/2023 10:50 AM CDT) Chloride, ur 39 mmol/L Comment: Interpretive Data No reference range established. Current interpretive data was last revised 2018. Urine (Urine, Clean Catch) 12/12/2023 10:50 AM CDT 12/12/2023 10:57 AM CDT Parris Soto NP LAB URINE ORDERABLES Final Result Performing Organization Address [facility] de Phone Number [facility] Department [place] [address] * (ABNORMAL) POCT glucose (12/12/2023 10:36 AM CDT) Glucose, POC 261(H) 70 - 199 mg/dL Blood 12/12/2023 10:3 6 AM CDT 12/12/2023 10:36 AM CDT Kevin Corrigan MD LAB POCT ORDERABLES - DEVICE Final Result Performing Organization Address [facility]/ZIP Co de Phone Number [facility] [place] [address] * (ABNORMAL) POCT glucose (12/12/2023 9:26 AM CDT) Glucose, POC 273(H) 70 - 199 mg/dL Blood 12/12/2023 9:26 AM CDT 12/12/2023 9:26 AM CDT Kevin Corrigan MD LAB POCT ORDERABLES - DEVICE Final Result Performing Organization Address [facility] Co de Phone Number [facility] [place] [address] * (ABNORMAL) POCT glucose (12/12/2023 9:25 AM CDT) Glucose, POC 318(H) 70 - 199 mg/dL Blood 12/12/2023 9:25 AM CDT 12/12/2023 9:25 AM CDT Kevin Corrigan MD LAB POCT ORDERABLES - DEVICE Final Result Performing Organization Address [facility]/ZIP Co de Phone Number [facility] [address] * POCT glucose (12/12/2023 7:41 AM CDT) Glucose, POC 175 70 - 199 mg/dL Blood 12/12/2023 7:41 AM CDT 12/12/2023 7:41 AM CDT Kevin Corrigan MD LAB POCT ORDERABLES - DEVICE Final Result Performing Organization Address City/[facility] Co de Phone Number [facility] [place] [address] * (ABNORMAL) Potassium (12/12/2023 7:27 AM CDT) Pathologist [facility] Potassium, pl 5.1(H) 3.3 - 4.9 mmol/L Blood 12/12/2023 7:27 AM CDT 12/12/2023 7:36 AM CDT Narrative [facility] - 12/12/2023 7:54 AM CDT Provider to discontinue after two normal results. us Parris Soto NP LAB BLOOD ORDERABLES Final Result Performing Organization Address City/[facility]/ZIP Co de Phone Number [facility] [place] [address] * ECG 12 lead (12/12/2023 5:53 AM CDT) [facility] Ventricular Rate EKG/Min [address] [facility] Atrial Rate 250 BPM [facility] QRS-Interval (MSEC) 98 ms [facility] QT-Interval (MSEC) 326 ms [facility] QTc 439 ms [facility] R Vallecitos 48 degrees [facility] T Vallecitos -10 degrees [facility] Diagnosis Atrial fibrillation with rapid ventricular response Abnormal ECG When compared with ECG of 09-DEC-2023 00:15, Incomplete right bundle branch block is no longer Present Criteria for Inferior infarct are no longer Present Confirmed by GREGORY CLINE M.D ([id number]) on 12/12/2023 5:25:07 PM [facility] 12/12/2023 5:53 AM CDT 12/12/2023 5:25 PM CDT us Parris Soto NP ECG ORDERABLES Final Resu lt [facility] * eGFR (12/12/2023 4:06 AM CDT) Pathologist [facility] eGFR >90 >=60 mL/min/1. 73 [...] MD LAB BLOOD ORDERABLES F inal Result [facility] [place] [address] * (ABNORMAL) Basic metabolic panel (12/12/2023 4:06 AM CDT) Sodium 136 135 - 145 mmol/L Potassium, pl 5.8(H) 3.3 - 4.9 mmol/L [facility] Comment:Hemolyzed; Potassium value may be falsely elevated by as much as 0.6-1.0 mmol/L. Suggest redraw and reanalysis. Chloride 105 97 - 110 mmol/L [facility] CO2 27 22 - 32 mmol/L [facility] Anion gap 4 2 - 15 mmol/L [facility] BUN 29(H) 6 - 25 mg/dL [facility] Creatinine 0.54(L) 0.60 - 1.10 mg/dL [facility] Glucose 181 70 - 199 mg/dL [facility] Comment: Interpretive Data Fasting glucose >/= 126 [...] 2022. Calcium 8.5 8.5 - 10.3 mg/dL [facility] Blood 12/12/2023 4:06 AM CDT 12/12/2023 4:26 AM CDT Kevin Corrigan MD LAB BLOOD ORDERABLES F inal Result [facility] [place] [address] * (ABNORMAL) POCT glucose (12/12/2023 4:01 AM CDT) Glucose, POC 206(H) 70 - 199 mg/dL Blood 12/12/2023 4:01 AM CDT 12/12/2023 4:01 AM CDT Kevin Corrigan MD LAB POCT ORDERABLES - DEVICE Final Result [facility] [place] [address] * POCT glucose (12/11/2023 11:47 PM CDT) Glucose, POC 193 70 - 199 mg/dL Blood 12/11/2023 11:4 7 PM CDT 12/11/2023 11:47 PM CDT us Kevin Corrigan MD LAB POCT ORDERABLES - DEVICE Final Result [facility] Department [place] [address] * eGFR (12/11/2023 9:47 PM CDT) eGFR [...] ORDERABLES F inal Result Performing Organization Address City/[facility] Co de Phone Number [facility] [place] [address] * (ABNORMAL) Phosphorus (12/11/2023 9:47 PM CDT) [facility] Phosphorus, pl 1.4(L) 2.3 - 4.5 mg/dL Blood 12/11/2023 9:47 PM CDT 12/11/2023 10:15 PM CDT Kevin Corrigan MD LAB BLOOD ORDERABLES F inal Result Performing Organization Address [facility] Co de Phone Number [facility] Department [place] [address] * Magnesium (12/11/2023 9:47 PM CDT) [facility] Magnesium 1.9 1.4 - 2.5 mg/dL Blood 12/11/2023 9:47 PM CDT 12/11/2023 10:15 PM CDT Kevin Corrigan MD LAB BLOOD ORDERABLES F inal Result Performing Organization Address [facility] Co de Phone Number [facility] Department [place] [address] * (ABNORMAL) Basic metabolic panel (12/11/2023 9:47 PM CDT) [facility] Sodium 135 135 - 145 mmol/L Potassium, pl 5.4(H) 3.3 - 4.9 mmol/L [facility] Comment:Hemolyzed; Potassium value may be falsely elevated by as much as 0.6-1.0 mmol/L. Suggest redraw and reanalysis. Chloride 104 97 - 110 mmol/L [facility] CO2 26 22 - 32 mmol/L [facility] Anion gap 5 2 - 15 mmol/L [facility] BUN 27(H) 6 - 25 mg/dL [facility] Creatinine 0.55(L) 0.60 - 1.10 mg/dL [facility] Glucose 188 70 - 199 mg/dL [facility] Comment: Interpretive Data Fasting glucose >/= 126 [...] 2022. Calcium 8.2(L) 8.5 - 10.3 mg/dL [facility] Blood 12/11/2023 9:47 PM CDT 12/11/2023 10:15 PM CDT Kevin Corrigan MD LAB BLOOD ORDERABLES F inal Result [facility] Department [place] [address] * (ABNORMAL) CBC without differential (12/11/2023 9:47 PM CDT) Pathologist [facility] WBC 6.7 3.8 - 9.9 K/cumm Hgb 7.9(L) 11.9 - 15.5 g/dL [facility] Hct 24.2(L) 35.6 - 45.5 % [facility] Plt 183 150 - 400 K/cumm [facility] MPV 10.8 9.1 - 12.3 fL [facility] RBC 2.52(L) 3.90 - 5.20 M/cumm [facility] MCV 96.0 81.3 - 96.4 fL [facility] MCH 31.3 27.1 - 33.3 pg [facility] MCHC 32.6 32.3 - 35.7 g/dL [facility] RDW CV 15.5(H) 11.1 - 14.9 % [facility] RDW SD 54.4(H) 35.7 - 48.1 fL [facility] NRBC abs 0.00 0.00 - 0.01 K/cumm [facility] Blood 12/11/2023 9:47 PM CDT 12/11/2023 10:15 PM CDT Kevin Corrigan MD LAB BLOOD ORDERABLES F inal Result [facility] [place] [address] * POCT glucose (12/11/2023 8:51 PM CDT) Glucose, POC 164 70 - 199 mg/dL Blood 12/11/2023 8:51 PM CDT 12/11/2023 8:51 PM CDT Kevin Corrigan MD LAB POCT ORDERABLES - DEVICE Final Result Performing Organization Address City/[facility] Co de Phone Number [facility] [place] [address] * (ABNORMAL) POCT glucose (12/11/2023 5:02 PM CDT) Glucose, POC 212(H) 70 - 199 mg/dL Blood 12/11/2023 5:02 PM CDT 12/11/2023 5:02 PM CDT Kevin Corrigan MD LAB POCT ORDERABLES - DEVICE Final Result Performing Organization Address City/[facility] Co de Phone Number [facility] [place] [address] * POCT glucose (12/11/2023 12:20 PM CDT) Glucose, POC 161 70 - 199 mg/dL Blood 12/11/2023 12:2 0 PM CDT 12/11/2023 12:20 PM CDT us Kevin Corrigan MD LAB POCT ORDERABLES - DEVICE Final Result [facility] Department [place] [address] * TRANSTHORACIC ECHO (TTE) COMPLETE W DOPPLER/CF W CONTRAST (12/11/2023 10:10 AM CDT) LV EF 61 % CARDIOREPORT Anatomical Region Laterality Modality Ultrasound 12/11/2023 9:00 AM CDT Narrative 12/11/2023 1:11 PM CDT Patient name: Prema Pearce Date of test: 12/11/2023 Type of test: TTE w/Doppler Hospital #: 0 Date of : 1940 (F) [employer] Operator: Emile Gtz RDCS Referring Physician: KEVIN CORRIGAN MD Contrast Agent: 0.9 ml Optison Administered, (2.1 ml wasted). Contrast Administered by: Supervised/Interpreted by: Frank Horn MD Diagnosis: Location: [facility] Reason for test: Hypotension MV Structure: [...] 2=Hypo 3=Akinetic 4=Dyskin./Aneurysm 0=Not visualized) Parasternal Long Vallecitos:MAS=1 BAS=1 MIL=1 NIGHAT=1 Parasternal Short Vallecitos:MAS=1 MIS=1 AK=1 MIL=1 MAL=1 MA=1 Apical 4 Chambers:=1 MIS=1 BIS=1 BAL=1 MAL=1 AL=1 AC=1 Apical 2 Chambers:AI=1 AK=1 BI=1 BA=1 MA=1 AA=1 AC=1 LV Global Longitudinal Strain: RV Global Longitudinal Strain: LV Function: Normal LV Ejection Fraction, ??(EF=54-74%) RV Function: Normal Septal Motion: Normal Pericardial Effusion: none seen Atrial Septum: Normal DOPPLER/COLOR FLOW DOPPLER RESULTS: Diastolic Function: indeterminate Tricuspid Valve: mild TV regurgitation Pulmonic Valve: Mild NH AV Regurgitation: Trace AR AV Stenosis: moderate AV Area: 1.0 cm2 AV Pressure Gradient (mmHg): Mean: 17, Peak:29 MV Regurgitation: Mild MR MV Stenosis: mild MS MV Area: ??cm2 MV Pressure Gradient (mmHg): Mean: 4 MV ERO: ??cm Regurg. Vol.: ??ml/beat Regurg. Frac.: ??% PA Pressure: ??mmHg DOPPLER/COLOR FOLOW DOPPLER COMMENTS: Trace AR, Mild MR, moderate , mild MS, mild TV regurgitation, Mild NH. Diastolic function: indeterminate CONTRAST: 0.9 ml Optison [...] Hg, and mild MR. ??Mild TR and NH. Unable to assess PA pressure. ??No pericardial effusion. ??No vegetations seen. ??Compared with 07/27/23, no significant change. Confirmed on ??12/11/2023 - 13:11:51 by Frank Horn MD By signing this report, the attending parts representative certifies that he or she has personally supervised and interpreted the echocardiogram and has reviewed and or edited and agrees with the written comments contained within the report. Procedure Note Frank Horn MD - 12/11/2023 Patient name: Prema Pearce Date of test: 12/11/2023 Type of test: TTE w/[facility] #: 0 Date of : 1940 (F) [employer] Furn[employer] Operator: Emile Gtz RDCS Referring Physician: KEVIN CORRIGAN MD Contrast Agent: 0.9 ml Optison Administered, (2.1 ml wasted). Contrast Administered by: Supervised/Interpreted by: Frank Horn MD Diagnosis: Location: [facility] Reason for test: Hypotension MV Structure: [...] 2=Hypo 3=Akinetic 4=Dyskin./Aneurysm 0=Not visualized) Parasternal Long Vallecitos:MAS=1 BAS=1 MIL=1 NIGHAT=1 Parasternal Short Vallecitos:MAS=1 MIS=1 AK=1 MIL=1 MAL=1 MA=1 Apical 4 Chambers:=1 MIS=1 BIS=1 BAL=1 MAL=1 AL=1 AC=1 Apical 2 Chambers:AI=1 AK=1 BI=1 BA=1 MA=1 AA=1 AC=1 LV Global Longitudinal Strain: RV Global Longitudinal Strain: LV Function: Normal LV Ejection Fraction, (EF=54-74%) RV Function: Normal Septal Motion: Normal Pericardial Effusion: none seen Atrial Septum: Normal DOPPLER/COLOR FLOW DOPPLER RESULTS: Diastolic Function: indeterminate Tricuspid Valve: mild TV regurgitation Pulmonic Valve: Mild NH AV Regurgitation: Trace AR AV Stenosis: moderate AV Area: 1.0 cm2 AV Pressure Gradient (mmHg): Mean: 17, Peak:29 MV Regurgitation: Mild MR MV Stenosis: mild MS MV Area: cm2 MV Pressure Gradient (mmHg): Mean: 4 MV ERO: cm Regurg. Vol.: ml/beat Regurg. Frac.: % PA Pressure: mmHg DOPPLER/COLOR FOLOW DOPPLER COMMENTS: Trace AR, Mild MR, moderate , mild MS, mild TV regurgitation, Mild NH. Diastolic function: indeterminate CONTRAST: 0.9 ml Optison [...] MD By signing this report, the attending parts representative certifies that he or she has personally [...] Final Result Performing Organization Address [facility] de Phone Number [facility] [place] [address] * POCT glucose (12/11/2023 3:44 AM CDT) Glucose, POC 185 70 - 199 mg/dL Blood 12/11/2023 3:44 AM CDT 12/11/2023 3:44 AM CDT Kevin Corrigan MD LAB POCT ORDERABLES - DEVICE Final Result Performing Organization Address [facility] de Phone Number [facility] [place] [address] * XR Abdomen Ap 1 Vw (12/11/2023 [...] enlargement. Electronically signed by: Ned Arreola M.D. us Kevin Corrigan MD IMG XR PROCEDURES Sri l Result * POCT glucose (12/10/2023 11:44 PM CDT) Glucose, POC 160 70 - 199 mg/dL Blood 12/10/2023 11:4 4 PM CDT 12/10/2023 11:44 PM CDT Kevin Corrigan MD LAB POCT ORDERABLES - DEVICE Final Result [facility] Department [place] [address] * eGFR (12/10/2023 9:37 PM CDT) eGFR [...] PM CDT 12/10/2023 9:49 PM CDT Result [facility] Kevin Corrigan MD LAB BLOOD ORDERABLES F inal Result Performing Organization Address [facility] Co de Phone Number [facility] [place] [address] * (ABNORMAL) Phosphorus (12/10/2023 9:37 PM CDT) [facility] Phosphorus, pl 1.8(L) 2.3 - 4.5 mg/dL Blood 12/10/2023 9:37 PM CDT 12/10/2023 9:49 PM CDT Result [facility] Kevin Corrigan MD LAB BLOOD ORDERABLES F inal Result Performing Organization Address [facility] Co de Phone Number [facility] Department [place] [address] * Magnesium (12/10/2023 9:37 PM CDT) [facility] Magnesium 2.2 1.4 - 2.5 mg/dL Blood 12/10/2023 9:37 PM CDT 12/10/2023 9:49 PM CDT Result [facility] Kevin Corrigan MD LAB BLOOD ORDERABLES F inal Result Performing Organization Address [facility] Co de Phone Number [facility] [place] [address] * (ABNORMAL) Basic metabolic panel (12/10/2023 9:37 PM CDT) [facility] Sodium 135 135 - 145 mmol/L Potassium, pl 4.6 3.3 - 4.9 mmol/L [facility] Chloride 104 97 - 110 mmol/L [facility] Comment:Repeated and Verifie d CO2 25 22 - 32 mmol/L [facility] Anion gap 6 2 - 15 mmol/L [facility] BUN 32(H) 6 - 25 mg/dL [facility] Creatinine 0.79 0.60 - 1.10 mg/dL [facility] Glucose 178 70 - 199 mg/dL [facility] Comment: Interpretive Data Fasting glucose >/= 126 [...] 2022. Calcium 8.0(L) 8.5 - 10.3 mg/dL [facility] Blood 12/10/2023 9:37 PM CDT 12/10/2023 9:49 PM CDT us Kevin Corrigan MD LAB BLOOD ORDERABLES F inal Result [facility] Department [place] [address] * (ABNORMAL) CBC without differential (12/10/2023 9:37 PM CDT) [facility] WBC 5.6 3.8 - 9.9 K/cumm Hgb 8.5(L) 11.9 - 15.5 g/dL [facility] Hct 25.8(L) 35.6 - 45.5 % [facility] Plt 143(L) 150 - 400 K/cumm [facility] MPV 10.3 9.1 - 12.3 fL [facility] RBC 2.66(L) 3.90 - 5.20 M/cumm [facility] MCV 97.0(H) 81.3 - 96.4 fL [facility] MCH 32.0 27.1 - 33.3 pg [facility] MCHC 32.9 32.3 - 35.7 g/dL [facility] RDW CV 15.8(H) 11.1 - 14.9 % [facility] RDW SD 55.2(H) 35.7 - 48.1 fL [facility] NRBC abs 0.00 0.00 - 0.01 K/cumm [facility] Blood 12/10/2023 9:37 PM CDT 12/10/2023 9:49 PM CDT Kevin Corrigan MD LAB BLOOD ORDERABLES F inal Result Performing Organization Address City/[facility]/ZIP Co de Phone Number [facility] Department [place] [address] * (ABNORMAL) POCT glucose (12/10/2023 7:59 PM CDT) Glucose, POC 210(H) 70 - 199 mg/dL Comment:Glu2: RN/MD Notified Glucose comment 1 Glu2: RN/MD Notified [facility] Blood 12/10/2023 7:59 PM CDT 12/10/2023 7:59 PM CDT Kevin Corrigan MD LAB POCT ORDERABLES - DEVICE Final Result Performing Organization Address City/[facility]/ZIP Co de Phone Number [facility] Department [place] [address] * (ABNORMAL) POCT glucose (12/10/2023 4:36 PM CDT) Glucose, POC 200(H) 70 - 199 mg/dL Blood 12/10/2023 4:36 PM CDT 12/10/2023 4:36 PM CDT Kevin Corrigan MD LAB POCT ORDERABLES - DEVICE Final Result Performing Organization Address City/[facility]/ZIP Co de Phone Number [facility] [place] [address] * Transfuse RBC (12/10/2023 2:10 PM CDT) Blood Emy Sanchez MANAGER PROFESSIONAL DEVELOPMENT BLOOD TRANSFUSION ORDE ANDRES Edited Result - Final Performing Organization Address [facility] Co de Phone Number [facility] Department [place] [address] * Transfuse RBC: 1 Units (12/10/2023 2:10 PM CDT) Blood Emy Dorado [facility] MANAGER PROFESSIONAL DEVELOPMENT BLOOD TRANSFUSION ORDE ANDRES Edited Result - Final * Troponin I [...] ORDERABLES F inal Result Performing Organization Address City/State/[facility] Co de Phone Number [facility] [place] [address] * (ABNORMAL) Pro B-type natriuretic peptide (12/10/2023 [...] MD LAB BLOOD ORDERABLES F inal Result [facility] [place] [address] * POCT lactate (12/10/2023 12:44 PM CDT) [facility] Lactate POC i-STAT 1.5 0.7 - 2.2 mmol/L Blood 12/10/2023 12:4 4 PM CDT 12/10/2023 12:44 PM CDT Kevin Corrigan MD LAB POCT ORDERABLES - DEVICE Final Result Performing Organization Address [facility]/[place] [address] * Prepare RBC: 1 Units (12/10/2023 12:24 PM CDT) [facility] Product code [id number] Unit Number [id number] [facility] Product Blood Type OPOS [facility] Dispense Status PRESUMED TRANSFUSED [facility] Blood 12/10/2023 12:2 4 PM CDT 12/10/2023 12:23 PM CDT Narrative [facility] - 12/11/2023 10:16 AM CDT Are special requirements needed? (All products are leukoreduced and CMV- safe)- >No Donor Source->[employer] Date required:-20231210 LRRBC # of Gulry-[id number]-[id number] Reasons:-Active bleeding, Hgb <8 g/dL} Emy Sanchez NP BLOOD BANK PRODUCT ORD ERABLES Final Result Performing Organization Address City/[facility]/[place] [address] * (ABNORMAL) CBC without differential (12/10/2023 12:17 PM CDT) [facility] WBC 5.8 3.8 - 9.9 K/cumm Hgb 8.4(L) 11.9 - 15.5 g/dL [facility] Hct 25.8(L) 35.6 - 45.5 % [facility] Plt 162 150 - 400 K/cumm [facility] MPV 9.8 9.1 - 12.3 fL [facility] RBC 2.59(L) 3.90 - 5.20 M/cumm [facility] MCV 99.6(H) 81.3 - 96.4 fL [facility] MCH 32.4 27.1 - 33.3 pg [facility] MCHC 32.6 32.3 - 35.7 g/dL [facility] RDW CV 14.3 11.1 - 14.9 % [facility] RDW SD 51.9(H) 35.7 - 48.1 fL [facility] NRBC abs 0.00 0.00 - 0.01 K/cumm [facility] Blood 12/10/2023 12:1 7 PM CDT 12/10/2023 12:38 PM CDT Emy Sanchez NP LAB BLOOD ORDERABLES F inal Result [facility] [place] [address] * (ABNORMAL) POCT glucose (12/10/2023 12:13 PM CDT) [facility] Signature Glucose, POC 237(H) 70 - 199 mg/dL Blood 12/10/2023 12:1 3 PM CDT 12/10/2023 12:13 PM CDT Kevin Corrigan MD LAB POCT ORDERABLES - DEVICE Final Result [facility] [place] [address] * CT Stroke Head WO Contrast (12/10/2023 [...] normal. No fractures are identified. Procedure Note Adreinne Kan MD - 12/10/2023 EXAMINATION: CT head [...] signed by: Adrienne Kan M.D. Emy Sanchez MANAGER PROFESSIONAL DEVELOPMENT IMG CT PROCEDURES Sri [place] Result * POCT glucose (12/10/2023 7:39 AM CDT) Glucose, POC 146 70 - 199 mg/dL Blood 12/10/2023 7:39 AM CDT 12/10/2023 7:39 AM CDT Kevin Corrigan MD LAB POCT ORDERABLES - DEVICE Final Result Performing Organization Address [facility] de Phone Number [facility] [place] [address] * POCT glucose (12/10/2023 4:39 AM CDT) Glucose, POC 175 70 - 199 mg/dL Blood 12/10/2023 4:39 AM CDT 12/10/2023 4:39 AM CDT Kevin Corrigan MD LAB POCT ORDERABLES - DEVICE Final Result Performing Organization Address [facility] de Phone Number [facility] [place] [address] * POCT glucose (12/09/2023 11:50 PM CDT) Pathologist [facility] Glucose, POC 162 70 - 199 mg/dL Blood 12/09/2023 11:5 0 PM CDT 12/09/2023 11:50 PM CDT Kevin Corrigan MD LAB POCT ORDERABLES - DEVICE Final Result Performing Organization Address [facility] de Phone Number [facility] [place] [address] * eGFR (12/09/2023 10:24 PM CDT) eGFR [...] LAB BLOOD ORDERABLES F inal Result [facility] Department of Laboratories [place], [place] [id number] * Phosphorus (12/09/2023 10:24 PM CDT) Phosphorus, pl 2.7 2.3 - 4.5 mg/dL Blood 12/09/2023 10:2 4 PM CDT 12/09/2023 10:37 PM CDT Kevin Corrigan MD LAB BLOOD ORDERABLES F inal Result [facility] [place] [address] * (ABNORMAL) Magnesium (12/09/2023 10:24 PM CDT) Magnesium 1.2(L) 1.4 - 2.5 mg/dL Blood 12/09/2023 10:2 4 PM CDT 12/09/2023 10:37 PM CDT Kevin Corrigan MD LAB BLOOD ORDERABLES F inal Result Performing Organization Address City/[facility]/ZIP Co de Phone Number [facility] Department [place] [address] * (ABNORMAL) Basic metabolic panel (12/09/2023 10:24 PM CDT) [facility] Sodium 140 135 - 145 mmol/L Potassium, pl 3.8 3.3 - 4.9 mmol/L [facility] Chloride 112(H) 97 - 110 mmol/L [facility] CO2 24 22 - 32 mmol/L [facility] Anion gap 4 2 - 15 mmol/L [facility] BUN 21 6 - 25 mg/dL [facility] Creatinine 0.71 0.60 - 1.10 mg/dL [facility] Glucose 157 70 - 199 mg/dL [facility] Comment: Interpretive Data Fasting glucose >/= 126 [...] 2022. Calcium 7.0(L) 8.5 - 10.3 mg/dL [facility] Comment:Reviewed Blood 12/09/2023 10:2 4 PM CDT 12/09/2023 10:37 PM CDT Kevin Corrigan MD LAB BLOOD ORDERABLES F inal Result Performing Organization Address City/[facility]/ZIP Co de Phone Number [facility] [place] [address] * (ABNORMAL) CBC without differential (12/09/2023 10:24 PM CDT) Pathologist [facility] WBC 8.1 3.8 - 9.9 K/cumm Hgb 8.8(L) 11.9 - 15.5 g/dL [facility] Hct 27.8(L) 35.6 - 45.5 % [facility] Plt 164 150 - 400 K/cumm [facility] MPV 9.6 9.1 - 12.3 fL [facility] RBC 2.78(L) 3.90 - 5.20 M/cumm [facility] MCV 100.0(H) 81.3 - 96.4 fL [facility] MCH 31.7 27.1 - 33.3 pg [facility] MCHC 31.7(L) 32.3 - 35.7 g/dL [facility] RDW CV 14.1 11.1 - 14.9 % [facility] RDW SD 51.1(H) 35.7 - 48.1 fL [facility] NRBC abs 0.00 0.00 - 0.01 K/cumm [facility] Blood 12/09/2023 10:2 4 PM CDT 12/09/2023 10:37 PM CDT Kevin Corrigan MD LAB BLOOD ORDERABLES F inal Result [facility] [place] [address] * (ABNORMAL) Hemoglobin A1c (12/09/2023 10:24 PM CDT) Pathologist [facility] Hgb A1C 6.5(H) 4.0 - 5.6 % Estimated Average Glucose 140 mg/dL [facility] Comment: The ADA recommends reporting an estimated [...] 12/09/2023 10:38 PM CDT us Emy Sanchez MANAGER PROFESSIONAL DEVELOPMENT LAB BLOOD ORDERABLES F inal Result [facility] [place] [address] * XR Femur Left 2 or More [...] Electronically signed by: Mario Cardoza M.D. Result [facility] Kevin Corrigan MD IMG XR PROCEDURES Sri [place] Result * POCT glucose (12/09/2023 5:59 PM CDT) Glucose, POC 165 70 - 199 mg/dL Blood 12/09/2023 5:59 PM CDT 12/09/2023 5:59 PM CDT Result [facility] Kevin Corrigan MD LAB POCT ORDERABLES - DEVICE Final Result Performing Organization Address [facility] de Phone Number [facility] [place] [address] * FL Fluoroscopy < 1 Hour (12/09/2023 5:04 PM CDT) Narrative [facility] - 12/09/2023 5:05 PM CDT The images from this study are not interpreted by Radiology. ??Please refer to the physician's procedure / OR operative note. Result [facility] Homer Villalobos MD IMG FLUOROSCOPY PROCEDURES Final Result Performing Organization Address [facility] de Phone Number [email or web address] * POCT glucose (12/09/2023 4:20 PM CDT) Glucose, POC 111 70 - 199 mg/dL Blood 12/09/2023 4:20 PM CDT 12/09/2023 4:20 PM CDT Result [facility] Kevin Corrigan MD LAB POCT ORDERABLES - DEVICE Final Result Performing Organization Address [facility] Co de Phone Number [facility] [place] [address] * POCT glucose (12/09/2023 2:01 PM CDT) Glucose, POC 128 70 - 199 mg/dL Blood 12/09/2023 2:01 PM CDT 12/09/2023 2:01 PM CDT Kevin Corrigan MD LAB POCT ORDERABLES - DEVICE Final Result Performing Organization Address City/[facility] Co de Phone Number [facility] [place] [address] * POCT glucose (12/09/2023 11:36 AM CDT) Glucose, POC 149 70 - 199 mg/dL Blood 12/09/2023 11:3 6 AM CDT 12/09/2023 11:36 AM CDT Kevin Corrigan MD LAB POCT ORDERABLES - DEVICE Final Result Performing Organization Address [facility] Co de Phone Number [facility] [place] [address] * POCT glucose (12/09/2023 8:34 AM CDT) Glucose, POC 119 70 - 199 mg/dL Blood 12/09/2023 8:34 AM CDT 12/09/2023 8:34 AM CDT Result [facility] [facility] Kevin Corrigan MD LAB POCT ORDERABLES - DEVICE Final Result Performing Organization Address City/[facility] Co de Phone Number [facility] [place] [address] * (ABNORMAL) Urinalysis, microscopic only (12/09/2023 5:01 AM CDT) Pathologist [facility] WBC, ur 6-10(A) 0 - 5 /HPF RBC, ur 3-5(A) 0 - 2 /HPF [facility] Epithelial cells, squamous, ur 1-5 0 - 5 /HPF [facility] Bacteria, ur 3+(A) [facility] Mucous, ur Present(A) [facility] Culture Reflex Comment Reflex conditions for urine culture (WBC >10) not met. [facility] Urine 12/09/2023 5:01 AM CDT 12/09/2023 5:07 AM CDT us Whitney Lovelace MD LAB URINE ORDERABLES Fi nal Result [facility] [place] [address] * (ABNORMAL) Urinalysis reflex to microscopic and culture Urine (12/09/2023 5:01 AM CDT) Color, ur Yellow Yellow Clarity, ur Clear Clear [facility] Specific gravity, ur 1.025 1.003 - 1.030 [facility] pH, urine 5.5 [facility] Comment: Interpretive Data ? Urine pH is affected by diet, medications, systemic acid-base disturbances, and renal tubular function. ??pH may affect urinary stone formation. ??For example, urine pH below 6.0 may help reduce the tendency for calcium phosphate stones and pH greater than 6.0 may reduce the tendency for uric acid stone formation. Source: [facility] Current Interpretive Data was last revised on 2017 Protein, ur ql Trace Negative [facility] Glucose, ur ql Negative Negative [facility] Ketones, ur Negative Negative [facility] Bilirubin, ur Negative Negative [facility] Blood, ur Negative Negative [facility] Urobilinogen, ur <2.0 <2.0 mg/dL [facility] Nitrite, ur Positive(A) Negative [facility] Leukocyte esterase, ur Trace(A) Negative [facility] UA reflex comment Reflex to microscopic UA will be performed. [facility] Urine 12/09/2023 5:01 AM CDT 12/09/2023 5:07 AM CDT us Whitney Lovelace MD LAB MICROBIOLOGY - GENE RAL ORDERABLES Final Result Performing Organization Address City/[facility]/ZIP Co de Phone Number [facility] Department [place] [address] * ECG 12 lead (12/09/2023 12:15 AM CDT) Ventricular Rate EKG/Min 85 BPM [facility] QRS-Interval (MSEC) 102 ms [facility] QT-Interval (MSEC) 366 ms [facility] QTc 435 ms [facility] R Vallecitos 31 degrees [facility] T Vallecitos -8 degrees [facility] Diagnosis 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 Incomplete right bundle branch block Inferior infarct , age undetermined Abnormal ECG When compared with ECG of 07-AUG-2023 14:22, Incomplete right bundle branch block is now Present Confirmed by MARY NAGEL M.D ([id number]) on 12/10/2023 10:59:07 PM [facility] 12/09/2023 12:1 5 AM CDT 12/10/2023 10:59 PM CDT Kevin Corrigan MD ECG ORDERABLES Final Result Performing Organization Address [facility] Co de Phone Number [facility] * POCT glucose (12/09/2023 12:01 AM CDT) Glucose, POC 161 70 - 199 mg/dL Blood 12/09/2023 12:0 1 AM CDT 12/09/2023 12:01 AM CDT Kevin Corrigan MD LAB POCT ORDERABLES - DEVICE Final Result Performing Organization Address City/[facility]/ZIP Co de Phone Number [facility] Department [place] [address] * POCT glucose (12/08/2023 8:52 PM CDT) Glucose, POC 170 70 - 199 mg/dL Blood 12/08/2023 8:52 PM CDT 12/08/2023 8:52 PM CDT Kevin Corrigan MD LAB POCT ORDERABLES - DEVICE Final Result [facility] [place] [address] * CT Femur Left WO Contrast (12/08/2023 [...] MD IMG XR PROCEDURES Final Result * [facility] CRITICAL CARE ILL/INJURED PATIENT INIT 30-74 MIN [...] spent time documenting in the medical record. Adonay Douglas MD IN CLINIC/BED SIDE ORDERABLES [...] Unknown LAB BLOOD ORDERABLES Final Res ult [facility] [place] [address] * Differential, auto (12/08/2023 11:35 AM CDT) Neutrophil abs 4.8 1.5 - 6.5 K/cumm Imm gran abs 0.0 0.0 - 0.1 K/cumm [facility] Lymphocyte abs 1.1 0.8 - 3.3 K/cumm [facility] Monocyte abs 0.5 0.2 - 0.8 K/cumm [facility] Eosinophil abs 0.1 0.0 - 0.5 K/cumm [facility] Basophil abs 0.0 0.0 - 0.1 K/cumm [facility] Neutrophil pct 73.8 % [facility] Comment: Interpretive Data Percent cell count reference ranges are not reported, since discordance with absolute values may lead to misinterpretation of CBC data. Current Interpretive Data was last revised on 2017. Imm gran pct 0.2 % [facility] Comment: Interpretive Data Percent cell count reference ranges are not reported, since discordance with absolute values may lead to misinterpretation of CBC data. Current Interpretive Data was last revised on 2017. Lymphocyte pct 16.9 % [facility] Comment: Interpretive Data Percent cell count reference ranges are not reported, since discordance with absolute values may lead to misinterpretation of CBC data. Current Interpretive Data was last revised on 2017. Monocyte pct 7.4 % [facility] Comment: Interpretive Data Percent cell count reference ranges are not reported, since discordance with absolute values may lead to misinterpretation of CBC data. Current Interpretive Data was last revised on 2017. Eosinophil pct 1.2 % [facility] Comment: Interpretive Data Percent cell count reference ranges are not reported, since discordance with absolute values may lead to misinterpretation of CBC data. Current Interpretive Data was last revised on 2017. Basophil pct 0.5 % [facility] Comment: Interpretive Data Percent cell count reference ranges are not reported, since discordance with absolute values may lead to misinterpretation of CBC data. Current Interpretive Data was last revised on 2017. Blood 12/08/2023 11:3 5 AM CDT 12/08/2023 12:05 PM CDT us Notinfile Unknown LAB BLOOD ORDERABLES Final Res ult Performing Organization Address City/[facility]/ZIP Co de Phone Number [facility] Department [place] [address] * Type and screen (12/08/2023 11:35 AM CDT) Gian, indirect Negative ABO Rh O Positive [facility] Blood 12/08/2023 11:3 5 AM CDT 12/08/2023 12:12 PM CDT Narrative [facility] - 12/08/2023 1:13 PM CDT Has the patient had Daratumumab or Isatuximab in the past 6 months?->Unknown us Andre Willson MD LAB BLOOD BANK TEST ORDERABLES Final Result Performing Organization Address City/[facility]/ZIP Co de Phone Number [facility] Department [place] [address] * aPTT (12/08/2023 11:35 AM CDT) aPTT [...] Res ult Performing Organization Address [facility] de Phone Number [facility] [place] [address] * (ABNORMAL) Protime-INR (12/08/2023 11:35 AM CDT) PT 17.1(H) 9.7 - 13.0 sec INR 1.57(H) 0.90 - 1.20 [facility] Comment: Interpretive data Oral anticoagulant therapeutic ranges: [...] Res ult Performing Organization Address [facility] de Phone Number [facility] [place] [address] * Comprehensive metabolic panel (12/08/2023 11:35 AM CDT) Sodium 137 135 - 145 mmol/L Potassium, pl 4.9 3.3 - 4.9 mmol/L [facility] Chloride 105 97 - 110 mmol/L [facility] CO2 27 22 - 32 mmol/L [facility] Anion gap 5 2 - 15 mmol/L [facility] BUN 22 6 - 25 mg/dL [facility] Creatinine 0.63 0.60 - 1.10 mg/dL [facility] Glucose 105 70 - 199 mg/dL [facility] Comment: Interpretive Data Fasting glucose >/= 126 [...] 2022. Calcium 10.0 8.5 - 10.3 mg/dL [facility] Bilirubin, total 0.4 0.1 - 1.2 mg/dL [facility] Protein, pl 7.0 6.5 - 8.5 g/dL [facility] Albumin 3.9 3.5 - 5.0 g/dL [facility] Alk phos 75 40 - 130 Units/L [facility] ALT 21 7 - 45 Units/L [facility] AST 25 10 - 45 Units/L [facility] Blood 12/08/2023 11:3 5 AM CDT 12/08/2023 12:05 PM CDT us Andre Willson MD LAB BLOOD ORDERABLES Final Res ult [facility] [place] [address] * (ABNORMAL) CBC with auto differential (12/08/2023 11:35 AM CDT) Pathologist [facility] WBC 6.5 3.8 - 9.9 K/cumm Hgb 11.3(L) 11.9 - 15.5 g/dL [facility] Hct 35.0(L) 35.6 - 45.5 % [facility] Plt 204 150 - 400 K/cumm [facility] MPV 9.8 9.1 - 12.3 fL [facility] RBC 3.58(L) 3.90 - 5.20 M/cumm [facility] MCV 97.8(H) 81.3 - 96.4 fL [facility] MCH 31.6 27.1 - 33.3 pg [facility] MCHC 32.3 32.3 - 35.7 g/dL [facility] RDW CV 14.1 11.1 - 14.9 % [facility] RDW SD 50.4(H) 35.7 - 48.1 fL [facility] NRBC abs 0.00 0.00 - 0.01 K/cumm [facility] Blood 12/08/2023 11:3 5 AM CDT 12/08/2023 12:05 PM CDT us Andre Willson MD LAB BLOOD ORDERABLES Final Res ult [facility] [place] [address] documented in this encounter Visit Diagnoses Diagnosis Closed displaced fracture of left femoral neck (HCC)- Primary Closed displaced fracture of left femoral neck (HCC) Contusion of left shoulder, initial encounter Fall, initial encounter Fall from standing, initial encounter Chronic heart failure with reduced ejection fraction and diastolic dysfunction ([facility]) ([facility]) Primary hypertension Unspecified essential hypertension Obstructive sleep apnea on CPAP History of CAD (coronary artery disease) History of diabetes mellitus Personal history of endocrine, metabolic, and immunity disorders Closed nondisplaced intertrochanteric fracture of left femur, initial encounter ([facility]) Anxiety Anxiety state, unspecified Hyponatremia Hyposmolality and/or hyponatremia Closed nondisplaced intertrochanteric fracture of left femur (HCC) Paroxysmal atrial fibrillation ([facility]) ([facility]) Atrial fibrillation Discharge planning issues Encounter for medication review Essential hypertension Unspecified essential hypertension Type 2 diabetes mellitus without complications ([facility]) ([facility]) DNR (do not resuscitate) Other specified conditions [...] over 2 Minutes, Once, On Thu12/08/23 at 1141, For 1 dose Given 12/08/2023 [...] Alfredo Lind RN)1154 (Given - Provider: Dariana Washington RN)1726 (Given - Provider: Dariana Washington RN) 0011 (Given - Provider: Morro Wade RN)0448 (Not Given - Provider: Aron Perez RN - Reason: Patient/family refused)1158 (Given - Provider: Eneida Kaiser, ARMANI)1755 (Given - Provider: Eneida Kaiser, ARMANI)2246 (Given - Provider: Negra Manrique RN) 0451 (Given - Provider: Aron Perez RN)1149 (Given - Provider: Minerva Marcano, ARMAIN)1634 (Given - Provider: Minerva Marcano, ARMANI) bisacodyL [...] (after last modification) on Thu12/12/23 at 1800 0817 (Given - Provider: Dariana [...] Kaiser, ARMANI) 0751 (Given - Provider: Minerva Marcano, ARMANI) insulin [...] Minerva Marcano RN)1148 (Given - Provider: Minerva Marcano, ARMANI)1711 (Given - Provider: Minerva Marcano RN) levothyroxine [...] Perez, ARMANI)1755 (Medication Applied - Provider: Eneida Kaiser, ARMANI - Comment: L leg) 0430 (Medication Removed [...] sodium. 2348 (Given - Provider: Aron Perez, ARMANI) PRN Medication Order 12/14/2023 12/15/2023 12/16/2023 ALPRAZolam (XANAX) tablet 0.5 mg 0.5 mg, oral, 2 times daily PRN, anxiety, Starting on Thu12/08/23 at 2250 1621 (Given - Provider: Dariana Washington RN) 2246 (Given - Provider: Negra Manrique RN) [...] Alfredo Lind, ARMANI)2156 (Given - Provider: Aron Perez RN) 0744 (Given - Provider: Eneida Kaisre, ARMANI)2226 (Given - Provider: Aron Perez RN) 1221 (Given - Provider: Minerva Marcano RN) oxyCODONE (ROXICODONE) tablet 5 mg 5 mg, oral, Every 4 hours PRN, 2nd line for pain, Starting on Thu12/08/23 at 2250, Indications: Pain 0608 (Given - Provider: Alfredo Lind RN) 0329 (Given - Provider: Aron Perez RN)0921 (Not Given - Provider: Eneida Kaiser RN [...] in sodium chloride 0.9% 10 mL syringe 12/11/2023 perflutren protein-a (OPTISO N) 3 mL [...] 12/08/2023 documented in this encounter Care Teams Authorizer Relationship Specialty Start Date End Date Cuba Larsen MD PCP - General Family Medicine 01/23/22 Chris Mendes MD Referring Physician Cardiology 12/23/21 Keli Orozco, and taxi instructor bus trolley Failure Coordinator Transplant 04/15/23 Tami Mcknight and taxi instructor bus trolley Failure Coordinator Cardiology 09/14/23 documented as of this encounter
--- OUTSIDE RECORDS SUMMARY | 2024-03-25 10:57 | XMS_ITS | Encounter Summary ---
Author Organization [facility] Healthcare Address [address] [place] [address] Care Team Providers Care Undercover Operator Name Role Phone Chris Mendes MD Unavailable [phone] Cuba Larsen MD Primary Care Provider [phone] Keli Orozco RN Unavailable Unavailable Tami Mcknight [...] Expiration Date Visits Re quested Visits Authorized [id number] 1 1 Encounter Details Date Type Department Care Team (Late st Contact Info) Description 12/09/2023 3:15 PM CDT Anesthesia Event [facility] Operating Room [address] [place] [address] Endy Shanks MD [address] [facility] [address] [place] [address] Darryl Zaragoza, LM [address] [facility] [id number] [place] [address] Anesthesia Record Procedure Summary Procedure Name Responsible [...] on file 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 / [facility] OR POD 2 Anesthesia Start: 1515 Anesthesia Stop: 174 Procedure: OPEN REDUCTION INTERNAL FIXATION LEFT INTERTROCHANTERIC FEMUR FRACTURE (Left: Lower Extremity) Diagnosis: Closed nondisplaced intertrochanteric fracture of left femur, initial encounter ([facility]) (Closed nondisplaced intertrochanteric fracture of left femur, initial encounter ([facility]) [S72.145A]) Surgeons: Homer Villalobos MD Responsible Provider: [...] Supervising provider: Endy Shanks MD Placed by: IT TRAINING SPECIALIST: Shagufta Finch CRNA Resident: Kevin Larios Procedure [...] Supervising provider: Endy Shanks MD Placed by: IT TRAINING SPECIALIST: Shagufta Finch CRNA Emergent airway documentation: Risks [...] Preoperative Evaluation Record Evaluation type/location: IPAP at [facility] Planned procedure site: [facility] OR (Pods 2/3/5/[facility]) Date: 12/09/23 Anesthesia Evaluation Prema Pearce is a 83 y.o. female INTRAMEDULLARY NAILING FEMUR - ANTEGRADE - INTERTROCHANTERIC (Left: Lower Extremity) OPEN REDUCTION INTERNAL FIXATION - FEMUR (Left: Thigh) Pre-Op Diagnosis Codes: * Closed nondisplaced intertrochanteric fracture of left femur, initial encounter ([facility]) [S72.145A] HISTORY HPI 83 year old female [...] stent Cardiovascular + Hypertension + CAD + AK + CHF (TTE 07/2023) Diastolic function: unspecified [...] angioplasty Comments: Dr. 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 CMP Na 137, Glu 105 K 4.9DN438, CO2 27 Ca 10.0 Alk phos 75, [...] side as late effect of stroke (CMS/HCC) ([facility]) 10/11/2021 Essential tremor History of nephrolithiasis 03/21/2021 Pica in adults 08/21/2020 Thyroid nodule 08/21/2020 Moderate episode of recurrent major depressive disorder (HCC) 08/21/2020 AYAD on CPAP 08/21/2020 Gastro-esophageal reflux disease without esophagitis 06/05/2019 WAI (generalized anxiety disorder) 06/05/2019 Slow transit constipation 06/05/2019 Acquired hypothyroidism 05/31/2019 Type 2 diabetes mellitus without complications ([facility]) ([facility]) 05/31/2019 Essential hypertension 05/31/2019 Presence of left artificial knee joint 05/25/2019 Paroxysmal atrial fibrillation ([facility]) ([facility]) 08/18/2017 Past Medical History: Diagnosis Date Adrenal nodule ([facility]) Anxiety Aortic stenosis, moderate Cardiomyopathy ([facility]) Diabetes mellitus ([facility]) GERD (gastroesophageal reflux disease) Heart murmur HFrEF (heart failure with reduced ejection fraction) ([facility]) ([facility]) Hyperlipidemia Hypothyroidism Insomnia Mitral regurgitation NSTEMI (non-ST elevated myocardial infarction) ([facility]) ([facility]) Obesity AYAD on CPAP Patellar sleeve fracture of left knee PONV (postoperative nausea and vomiting) Pulmonary embolism ([facility]) Sleep apnea Zenker's diverticulum Past Surgical History: [...] strip daily to check glucose blood-glucose meter [facility] -- 03/19/23 -- Cuba Larsen MD Use [...] A DAY BEFORE BREAKFAST AND LUNCH lancets [facility] -- 03/19/23 -- Cuba Larsen MD 1 [...] tablet -- 11/02/23 -- Buechler, Racquel H., HOOK AND EYE MACHINE OPERATOR Take 1 tablet (50 mg total) by [...] There is no significant obstruction of the table [place] coronary arteries. There is, however, significanttortuosity of [...] Medication protocol when under care of a IT TRAINING SPECIALIST Planned anesthesia: General and PNB - single shot Team communication plan: oral ET tube Lower extremity: fascia iliaca nerve block Comments: FABBY block Invasive Monitors Planned: Invasive monitors planned: arterial line. Induction: Induction: intravenous. Postoperative Plan: No postoperative mechanical ventilation intended. Patient's planned disposition post procedure is Floor. Informed Consent: Discussed plan with IT TRAINING SPECIALIST. Anesthesia plan and risks discussed with patient. [...] Procedure Name Priority Date/Time Associated Diagnosis Comments OH AN PROCEDURE PLACEHOLDER Routine 12/09/2023 4:27 PM CDT OH AN PROCEDURE PLACEHOLDER Routine 12/09/2023 4:26 PM CDT OH AN PROCEDURE PLACEHOLDER Routine 12/09/2023 4:25 PM CDT OH AN ELECTIVE ENDOTRACHEAL AIRWAY Routine 12/09/2023 4:25 PM CDT OH AN PROCEDURE PLACEHOLDER Routine 12/09/2023 4:10 PM CDT documented in this encounter Results * OH AN PROCEDURE PLACEHOLDER (12/09/2023 4:27 PM CDT) Narrative Shagufta Finch CRNA - 12/09/2023 4:27 PM CDT Shagufta Finch CRNA ? 12/09/2023 ??4:29 PM Arterial Line Patient location: OR Indication: continuous blood pressure monitoring Staff: Supervising provider: Endy Shanks MD Placed by: IT TRAINING SPECIALIST: Shagufta Finch CRNA Resident: Kevin Larios Procedure prep: Prep solution: chlorhexadine/alcohol Arterial line: Catheter size: 20 gauge Catheter type: wire-guided catheter Site: radial artery Line secured: tape and Tegaderm Results: good waveform and good blood return Number of attempts: 1 Assessment: Other: GETA us Endy Shanks MD ANESTHESIA ORDERABLES Final Result * OH AN PROCEDURE PLACEHOLDER (12/09/2023 4:26 PM CDT) Narrative Shagufta Finch CRNA - 12/09/2023 4:26 PM CDT Shagufta Finch IT TRAINING SPECIALIST ? 12/09/2023 ??4:27 PM Arterial Line Patient location: OR us Endy Shanks MD ANESTHESIA ORDERABLES Final Result * OH AN ELECTIVE ENDOTRACHEAL AIRWAY, OH AN PROCEDURE PLACEHOLDER (12/09/2023 4:25 PM CDT) Narrative Shagufta Finch CRNA - 12/09/2023 4:25 PM CDT Shagufta Finch CRNA ? 12/09/2023 ??4:26 PM Airway Patient location: OR Urgency: elective Indications for airway management: anesthesia Difficult airway: no Staff: Supervising provider: Endy Shanks MD Placed by: IT TRAINING SPECIALIST: Shagufta Finch CRNA Emergent airway documentation: Risks [...] Shanks MD ANESTHESIA ORDERABLES Final Result * OH AN PROCEDURE PLACEHOLDER (12/09/2023 4:10 PM CDT) [...] mg documented in this encounter Care Teams Undercover Operator Relationship Specialty Start Date End Date Cuba Larsen MD PCP - General Family Medicine 01/23/22 Chris Mendes MD Referring Physician Cardiology 12/23/21 Keli Orozco, perforator operator Failure Coordinator Transplant 04/15/23 Tami Mcknight perforator operator Failure Coordinator Cardiology 09/14/23 documented as of this encounter
--- OUTSIDE RECORDS SUMMARY | 2024-03-25 10:57 | XMS_ITS | Encounter Summary ---
Author Organization [facility] Address [address] [place] [address] Phone Care Team Providers Care Unemployment Examiner Name Role Phone Chris Mendes MD Unavailable Cuba Larsen MD Primary Care Provider [phone] Keli Orozco RN Unavailable Unavailable Tami Mcknight RN Unavailable Unavailab le Encounter Details Date Type Department Care Team (Late st Contact Info) Description 12/10/2023 Telephone [facility] Cardiology [address] [facility] Advanced Medicine 8th [place] [address] [place] [address] Geovanna Franklin Social History Tobacco [...] on file 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 Solis documented in this encounter Plan of Treatment Not on file documented as of this encounter Visit Diagnoses Not on filedocumented in this encounter Care Teams Unemployment Examiner Relationship Specialty Start Date End Date Cuba Larsen MD PCP - General Family Medicine 01/23/22 Chris Mendes MD Referring Physician Cardiology 12/23/21 Keli Orozco, taper/finisher Failure Coordinator Transplant 04/15/23 Tami Mcknight RN Heart Failure Coordinator Cardiology 09/14/23 documented as of this encounter
--- OUTSIDE RECORDS SUMMARY | 2024-03-25 10:58 | XMS_ITS | Encounter Summary ---
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
--- OUTSIDE RECORDS SUMMARY | 2024-03-25 10:58 | XMS_ITS | Encounter Summary ---
Author Organization [facility] Address [address] [place] [address] Phone Care Team Providers Care Workers' Compensation Commissioner Name Role Phone Chris Mendes MD Unavailable Cuba Larsen MD Primary Care Provider [phone] Keli Orozco RN Unavailable Unavailable Tami Mcknight RN Unavailable Unavailab le Encounter Details Date Type Department Care Team (Late st Contact Info) Description 11/27/2023 Telephone [facility] Cardiology [address] [facility] Advanced Medicine 8th [place] [address] [place] [id number] Racquel Abebe NP [address] [place] [address] Social History Tobacco Use Types Packs/Day Years [...] file 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
--- OUTSIDE RECORDS SUMMARY | 2024-03-25 10:58 | XMS_ITS | Encounter Summary ---
Author Organization [facility] Address [address] [place] [address] Care Team Providers Care Doctor Of Osteopathy Name Role Phone Chris Mendes MD Unavailable [phone] Cuba Larsen MD Primary Care Provider [phone] Keli Orozco RN Unavailable Unavailable Reason for Visit * Reason Comments Stroke * Auth/Cert (Routine) Specialty Diagnoses / Procedures Referred By Indra t Referred To Contact Diagnoses Acute ischemic right MCA stroke (HCC) Procedures NA Referral ID Status Reason Start Date Expiration Date Visits Re quested Visits Authorized [id number] 1 1 Encounter Details Date Type Department Care Team (Latest Contact Info) Description 08/07/2023 12:06 PM CDT - 08/10/2023 6:06 PM CDT Hospital Encounter [facility] [address] [place] [address] Fred Elena MD [address] [place] [address] Chandler Verdugo MD [address] [place] [address] Fred Boone MD [address] [place] [address] Clarence Guido MD [address] [place] [address] Acute ischemic right MCA stroke (HCC) (Primary [...] 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 She reports that she would previously felt a left facial droop in 2021 with prior stroke but that [facility] was able to ???pull the stroke [...] statin, with Atorvastatin 40mg Daily, per current [place] Heart Association/Syrian Stroke Association guidelines that recommend intensive statin [...] up in the Stroke CAM clinic. Address: [facility] ([facility]): [address] [place] [address] Other problems addressed this admission: #Hypertension Blood pressure on admission was 151/113. Home blood pressure medications were initially held to allow for permissive hypertension in the setting of acute stroke. Blood pressure medications were subsequently resumed with improvements in blood pressure prior to discharge. The patient was discharged on carvedilol 12.5mg BID and losartan 100. The patient should follow-up with their PCP or Food Clerk for further evaluation and management. #Hyperlipidemia LDL on admission was 33. The patient was discharged on Atorvastatin 40mg daily. Pt is at Goal LDL for secondary stroke prevention (<70). #Atrial Fibrillation The patient was monitored on telemetry which showed atrial fibrillation. Rate control was achieved during the admission with Coreg and the patient was discharged on Coreg as above for ongoing rate control. [id number] score is 7. The patient was discharged on Eliquis (to start on 08/10) for secondarystroke prevention. The patient should follow-up with their PCP or Food Clerk for further evaluation and management. #Type II [...] DAY WITH FOOD Commonly known as: GLUCOPHAGE icmluuww-dyp-guzq-FA-vit K-lut 8 mg iron-400 mcg-50 mcg tablet Take by mouth rosuvastatin 20 mg tablet TAKE 1 TABLET BY MOUTH EVERY DAY Commonly known as: CRESTOR spironolactone 25 mg tablet TAKE 1 TABLET (25 MG TOTAL) BY MOUTH DAILY. Commonly known as: ALDACTONE Outpatient Follow-Up: Future Appointments Date Time Provider Department Center 09/02/2023 1:45 PM Cuba Larsen MD [facility] 210 02/01/2024 1:20 PM Chris Mendes MD [...] after discharge then please contact us at [phone] and ask for Scott Crandall MD. Follow Ups: - You have been referred for follow-up at the: Stroke CAM: [phone] located at [facility] [address] [place] [address]. You can find more information about our Neurology Specialty Clinics here: [email or web address] Patientshould expect to be contacted with appointment [...] PrimaryCare Clinic to schedule an appointment at [phone] OR reach out to the Community Waist Fitter at [facility] (Brie Jesus [phone] ) if you would like assistance getting an appointment with a primary care provider. - You have been referred for follow up with Stroke CAM: [phone] Call Your Doctor If: CALL 830 IF YOU HAVE NEW SIGNS OF A [...] survivors and their families with an ASA steam train driver who can provide support, helpful information or just a listening ear. Call our Stroke Family Warmline at 0-937-0-STROKE ( ). [place] Stroke Association: They provide comprehensive resources and support for stroke survivors,including online support communities. Website: www.stroke.org National Stroke Association: They offer stroke support groups in various cities across the [place] andonline resources. Website: www.stroke.org Find local or online support groups here: https://www.stroke.org/en/dzzz-jkj-gczjsst/yfhipan-arhxc-j eader-resources/ddtaqcf-ziwofvp-mfljfr or [employer]/strokeassist Stroke Support Group Finder: This online tool helps you find stroke support groups in any area. Website: www.strokesupport.org Stroke Club: This is a support group hosted by the [facility]. They meetmonthly and provide education and support for stroke survivors and their families. Contact: [facility] Stroke Support Group: This group provides monthly meetings for stroke survivors, their families, and caregivers. Contact: [facility] Stroke Support Group: This group is designed [...] complication, without long-term current use of insulin ([facility]) ([facility]) One strip daily to check glucose 100 each 1 03/19/2023 blood-glucose meter miscIndications: Type 2 diabetes mellitus without complication, without long-term current use of insulin ([facility]) ([facility]) Use daily or as directed for monitoring of diabetes. 1 each 03/19/2023 CALCIUM CARBONATE ORAL Take 600 mg by mouth 2 (two) times a day cholecalciferol (VITAMIN D-3) 2000 unit tablet Take by mouth lancets miscIndications: Type 2 diabetes mellitus without complication, without long-term current use of insulin ([facility]) ([facility]) 1 each by other route daily [...] WITH FOOD 180 tablet 1 03/03/2023 4 rernxntk-bhj-job n-FA-lutein 8 mg iron-400 mcg-300 mcg tablet [...] Units 08/10/23 0718 08/09/23 2216 08/09/23 0719 08/08/23 2052 SODIUM mmol/L -- 137 -- 138 [...] interval not displayed. Recent Labs Lab Units 08/08/23 2052 MAGNESIUM mg/dL 2.0 Recent Labs Lab Units [...] discussed with Chris, stroke resident by Emanuel Lopse MD at 08/07/2023 12:35 PM. Dictated by: [...] diet, and limited alcohol intake. Consults: SMART (Binder Lockstitch, PT/OT, SCENE SHIFTER, Spiritual Care) #Hypertension Blood pressure on admission [...] treatment team and contact the PT or SALT MAKER currently assigned to this patient. If a physical therapy clinician is not assigned to this patient, please call [phone]. 08/09/23 1002 General Chart Reviewed Yes Session [...] Equipment-Currently Using None Prior Function Level of Mono Independent functional transfers;Independent with ambulation Lives With [...] with Outstretched Arm While Standing 4 9. 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 [...] not assigned to this patient, please call [phone]. 08/09/23 1253 General Chart Reviewed Yes Session Type Evaluation [...] Equipment-Currently Using None Prior Function Level of Mono Independent with ADLs;Independent functional transfers;Independent with homemaking [...] name and address after me Miguel Carrasquillo [address] [place] [address] Without looking at the clock, tell me [...] Complete 297 seconds Trails A & B ([place] Making Test) Patient completed Trails A in [...] DM2, hypothyroidism, GERD, anxiety, who presents to [facility] with [employer], R gaze, R facial droop. 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 EMS was called and the patient arrived to [facility] ED. On arrival was afebrile, HR [...] g/dL 4.1 4.0 4.4 ALT Units/L 21 21 AST Units/L 22 IMAGING (Most recent) [...] heart failure with recovered EF -- last LHC in 2020 with no significant CAD -- [...] plan with the ICU team and other medical/information consultant staffas documented in the referenced note with the exceptions noted below. * Terrence Ambrosio - 08/07/2023 2:50 PM CDT Spiritual Care Note Or ManagerAMISHA Fraser, [facility] 08/07/23 1450 Time Spent [...] connectedness Achieved Interventions Interventions Offer emotional support;Offer spiritual/hoahaoism support documented in this encounter H&P Notes [...] was getting her hair done at the [employer]. She reports that she would previously felt a left facial droop in 2021 with prior stroke but that [facility] was able to ???pull the stroke [...] diet, and limited alcohol intake. Consults: SMART (Binder Lockstitch, PT/OT, SCENE SHIFTER, Spiritual Care) #Hypertension Blood pressure on admission [...] 1 Olivia Red MD Neurology Resident Physician [facility] Cosigned by Clarence Guido MD at 08/09/2023 7:51 PM CDT Associated attestation - Clarence Guido MD - 08/09/2023 7:51 PM CDT I have seen and examined the patient on 08/09/23. I agree with the findings and plan of care as documented in the resident's/fellow's note.. * Fred Boone MD - 08/07/2023 6:01 PM CDT Brief Neurocritical Care Attending Note Prema Pearce [id number] Brief Attending Documentation Admission Diagnoses: Acute ischemic [...] plan with the ICU team and other medical/information consultant staff as documented in the referenced [...] DM2, hypothyroidism, GERD, anxiety, who presents to [facility] with [employer], R gaze, R facial droop. 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 EMS was called and the patient arrived to [facility] ED. On arrival was afebrile, HR [...] A DAY WITH FOOD 180 tablet 1 cselfibz-veq-dezh-FA-lutein 8 mg iron-400 mcg-300 mcg tablet Take [...] heart failure with recovered EF -- last [facility] in 2020 with no significant CAD -- [...] IV fluids: SLIV Flushes: n/a Last BM: SALT MAKER # Nutrition/dysphagia -- plan for swallow eval [...] documented in this encounter Consult Notes * Dolores Lr, RD - 08/08/2023 8:41 AM CDTAssociated Order(s): IP [...] mg/dL 13 18 CREATININE mg/dL 0.57* 0.63 ERP-XLG-MRYOTEX mL/min/1.73 m2 >90 89 CALCIUM mg/dL 9.5 [...] Start Ordered 08/08/23 0842 Oral Nutrition Supplements ([facility]) Select Supplement: Ensure Max - Lennie, Ensure High Protein - Lennie; Quantity (# of cans): 1 can All Meals Comments: 1 per meal per pt request Question Answer Comment ([facility]) Select Supplement: Ensure Max - Lennie ([facility]) Select Supplement: Ensure High Protein - Lennie Quantity (# of cans): 1 can 08/08/23 0841 08/07/23 2100 Bedtime snack At bedtime Comments: If bedtime BG is less than 100mg/dl, give patient a 15 gram carbohydrate snack. 08/07/23 1721 08/07/23 1734 Adult Diet Regular, Restricted; Regular Liquid; Consistent Carbohydrate Diet effective now Question Answer Comment ([facility]) Diet type Regular ([facility]) Diet type Restricted Fluid Consistency: Regular Liquid Diabetic: Consistent Carbohydrate 08/07/23 1733 Allergies: IMPRESSION: Saw pt stroke for consult. Pt reports she had a great appetite SALT MAKER. Reports diet education for diabetes in recent [...] was getting her hair done at the [facility]. She does report that she had previously had a left facial droop in 2021 with a prior stroke but that [facility] was able to pull the stroke [...] drift Limb Ataxia (7.): Absent Sensory (8.): Sldn-hz-ndkkuqmm sensory loss, patient feels pinprick is less sharp or is dull on theaffected side, or there is a loss of superficial pain with pinprick, but patient is aware of being touched Best Language (9.): No aphasia Dysarthria (10.): Ucop-tk-yutswzys dysarthria, patient slurs at least some words [...] given Reason for thrombolytic delay (>30 mins gcbq-vf-vnhtsu, if applicable): N/A, patient did not receive thrombolytics Thrombectomy decision: LVO on CTA?: Yes, Location: MCA, M1 segment CTA read time/fellow: time: 12:35, fellow: Moses CTP: Core volume: 14 mL Penumbra volume: 253 mL Mismatch ratio: 18.1 Baseline functional status: MRS 0: The patient has no symptoms. Intervention: GO Neuro-IR contact time: Called at (hh:mm): 12:24 Reason for thrombectomy attempt delay (>90 minutes exlo-bd-chcqgghm, if applicable): N/A: Patient did not receive [...] please activate the acute stroke pager at [phone]. For a non-emergent questions please call the inpatient stroke phone at [phone]. Ivonne Perez MD 08/07/2023, 2:25 PM Subjective [...] A DAY WITH FOOD 180 tablet 1 kgedorxz-mxg-mmgo-FA-lutein 8 mg iron-400 mcg-300 mcg tablet Take [...] side as late effect of stroke (CMS/HCC) ([facility]) 10/11/2021 Essential tremor History of nephrolithiasis 03/21/2021 Pica in adults 08/21/2020 Thyroid nodule 08/21/2020 Recurrent major depressive disorder, in full remission (CMS/HCC) (HCC) 08/21/2020 AYAD on CPAP 08/21/2020 Chronic combined systolic (congestive) and diastolic (congestive) heart failure (HCC) 06/05/2019 Gastro-esophageal reflux disease without esophagitis 06/05/2019 WAI (generalized anxiety disorder) 06/05/2019 Hypertensive heart disease with heart failure ([facility]) ([facility]) 06/05/2019 Insomnia, unspecified 06/05/2019 Slow transit constipation 06/05/2019 Acquired hypothyroidism 05/31/2019 Type 2 diabetes mellitus without complications ([facility]) ([facility]) 05/31/2019 Essential hypertension 05/31/2019 Presence of left artificial knee joint 05/25/2019 Paroxysmal atrial fibrillation ([facility]) ([facility]) 08/18/2017 Past Medical History: Diagnosis Date Adrenal nodule ([facility]) Anxiety Aortic stenosis, moderate Atrial fibrillation ([facility]) ([facility]) Cardiomyopathy ([facility]) Diabetes mellitus ([facility]) Dyslipidemia GERD (gastroesophageal reflux disease) Heart murmur HFrEF (heart failure with reduced ejection fraction) ([facility]) ([facility]) Hyperlipidemia Hypertension Hypothyroidism Insomnia Mitral regurgitation NSTEMI (non-ST elevated myocardial infarction) ([facility]) ([facility]) Obesity AYAD on CPAP Patellar sleeve fracture of left knee PONV (postoperative nausea and vomiting) Pulmonary embolism ([facility]) Sleep apnea Stroke ([facility]) Zenker's diverticulum Past Surgical History: Procedure [...] stroke (HCC) Marizol Guardado MD Resident 08/07/23 1246 Fred Elena MD 08/07/23 1249 Fred Elena MD 08/07/23 1602 * Sherly Fox RN - 08/07/2023 12:07 PM CDT Pt BIBEMS for left sided flaccidity, right sided gaze, and right facial droop. LNK 11:30. No meds given en route. BP 180/100 for EMS, HR 70's in afib. Pt PMH CVA 2 years ago * Yoly Alcantara RN - 08/07/2023 12:07 PM CDT Bed: [facility] Expected date: 08/07/23 Expected time: 11:55 AM Means of arrival: Comments: STROKE Yoly Alcantara RN 08/07/23 1207 documented in this encounter Miscellaneous Notes * Plan of Care - Gris Buck RN - 08/10/2023 8:00 AM CDT Goals: Clinical Goals for the Shift: Monitor VS/neuro check/blood sugar, maintain safety, use call light, TTE ordered. Washer Engineer Patient Centered Goal for Treatment: Home with [...] comfort Summary: . * Hospital Course - [place], Ivonne Garzon MD - 08/08/2023 6:25 PM [...] statin, with Atorvastatin 40mg Daily, per current [place] Heart Association/Syrian Stroke Association guidelines that recommend intensive statin [...] up in the Stroke CAM clinic. Address: [facility] ([facility]): [address] [place] [address], [facility] Other problems addressed this admission: #Hypertension Blood pressure on admission was 151/113. Home blood pressure medications were initially held to allow for permissive hypertension in the setting of acute stroke. Blood pressure medications were subsequently resumed with improvements in blood pressure prior to discharge. The patient was discharged on carvedilol 12.5mg BID and losartan 100. The patient should follow-up with their PCP or Food Clerk for further evaluation and management. #Hyperlipidemia LDL on admission was 33. The patient was discharged on Atorvastatin 40mg daily. Pt is at Goal LDL for secondary stroke prevention (<70). #Atrial Fibrillation The patient was monitored on telemetry which showed atrial fibrillation. Rate control was achieved during the admission with Coreg and the patient was discharged on Coreg as above for ongoing rate control. [id number] score is 7. The patient was discharged on Eliquis (to start on 08/10) for secondarystroke prevention. The patient should follow-up with their PCP or Food Clerk for further evaluation and management. #Type II [...] Obtained From: Adult child Name: Tiago Culp [phone] Admission Source: Home Impression: [facility] work [facility]. Plan Includes: news operations manager will monitor for post acute discharge needs such as therapy, nursing, medical equipment or agency referrals as indicated by the care team. Primary Source of Transportation: Does the patient need discharge transport arranged?: No If private car is appropriate at discharge, family will provide transport at discharge from hospital. Health Insurance Coverage: [facility] Medicare Prescription Coverage: Yes Pharmacy: [id number] [place], [place] - [address] [facility] [address] [place] [id number] Primary Care Provider: Cuba Larsen MD Prior to Admission: Functional Status: Independent with ADLs Primary Caregiver: Self Support System: Family members, Children (Tiago Culp [phone]) Home Care Services: No Outpatient Services: No [...] Collaboration with Patient, Provider, Direct Care Nurse, Dry Box Operator, and other members of theHealth Care Team to assure needed interventions completed. 2. Return patient to optimal level of self-care post discharge. 3. Outpatient Coding Specialist will follow for Discharge Planning - [...] Post Procedure Note Attending: Stuart Simental MD High Lift Driver(s): Mor Riley MD, Cyndie Griffin MD, Dick [...] ECG 12-LEAD STAT 08/07/2023 12:34 PM CDT MS CRITICAL CARE ILL/INJURED PATIENT INIT 30-74 MIN [...] DEVICE Fin al Result Performing Organization Address [facility] de Phone Number [facility] [place] [address] * POCT glucose (08/10/2023 7:18 AM CDT) Glucose, POC 166 70 - 199 mg/dL Blood 08/10/2023 7:18 AM CDT 08/10/2023 7:18 AM CDT Clarence Guido MD LAB POCT ORDERABLES - DEVICE Fin al Result Performing Organization Address [facility] de Phone Number [facility] [place] [place] [address] * eGFR (08/09/2023 10:16 PM CDT) eGFR [...] CDT 08/09/2023 11:23 PM CDT Parris Celestin NP LAB BLOOD ORDERABLES Sri davalos Result [facility] [place] [address] * (ABNORMAL) Basic metabolic panel (08/09/2023 10:16 PM CDT) [facility] Sodium 137 135 - 145 mmol/L Potassium, pl 4.4 3.3 - 4.9 mmol/L [facility] Chloride 103 97 - 110 mmol/L [facility] CO2 24 22 - 32 mmol/L [facility] Anion gap 10 2 - 15 mmol/L [facility] BUN 32(H) 6 - 25 mg/dL [facility] Creatinine 0.83 0.60 - 1.10 mg/dL [facility] Glucose 137 70 - 199 mg/dL [facility] Comment: Interpretive Data Fasting glucose [...] 2022. Calcium 9.9 8.5 - 10.3 mg/dL [facility] Blood 08/09/2023 10:1 6 PM CDT 08/09/2023 11:23 PM CDT Parris Celestin CLERK CARRIER LAB BLOOD ORDERABLES Sri l Result Performing Organization Address City/[facility]/ZIP Co de Phone Number [facility] [place] [place] [address] * (ABNORMAL) CBC without differential (08/09/2023 10:16 PM CDT) [facility] WBC 6.8 3.8 - 9.9 K/cumm Hgb 11.5(L) 11.9 - 15.5 g/dL [facility] Hct 34.8(L) 35.6 - 45.5 % [facility] Plt 220 150 - 400 K/cumm [facility] MPV 10.4 9.1 - 12.3 fL [facility] RBC 3.55(L) 3.90 - 5.20 M/cumm [facility] MCV 98.0(H) 81.3 - 96.4 fL [facility] MCH 32.4 27.1 - 33.3 pg [facility] MCHC 33.0 32.3 - 35.7 g/dL [facility] RDW CV 13.5 11.1 - 14.9 % [facility] RDW SD 48.7(H) 35.7 - 48.1 fL [facility] NRBC abs 0.00 0.00 - 0.01 K/cumm [facility] Blood 08/09/2023 10:1 6 PM CDT 08/09/2023 11:24 PM CDT Parris Celestin CLERK CARRIER LAB BLOOD ORDERABLES Sri l Result [facility] [place] [address] * POCT glucose (08/09/2023 8:10 PM CDT) Glucose, POC 166 70 - 199 mg/dL Blood 08/09/2023 8:10 PM CDT 08/09/2023 8:10 PM CDT Clarence Guido MD LAB POCT ORDERABLES - DEVICE Fin al Result Performing Organization Address [facility] de Phone Number [facility] [place] [address] * POCT glucose (08/09/2023 4:44 PM CDT) Glucose, POC 144 70 - 199 mg/dL Blood 08/09/2023 4:44 PM CDT 08/09/2023 4:44 PM CDT Clarence Guido MD LAB POCT ORDERABLES - DEVICE Fin al Result Performing Organization Address [facility] de Phone Number [facility] [place] [place] [address] * POCT glucose (08/09/2023 11:40 AM CDT) Glucose, POC 172 70 - 199 mg/dL Blood 08/09/2023 11:4 0 AM CDT 08/09/2023 11:40 AM CDT rFed Boone MD LAB POCT ORDERABLES - DEVICE Fin al Result Performing Organization Address [facility] de Phone Number [facility] [place] [place] [address] * POCT glucose (08/09/2023 7:19 AM CDT) Glucose, POC 163 70 - 199 mg/dL Blood 08/09/2023 7:19 AM CDT 08/09/2023 7:19 AM CDT us Fred Boone MD LAB POCT ORDERABLES - DEVICE Fin al Result Performing Organization Address [facility] de Phone Number [facility] [place] [address] * eGFR (08/08/2023 8:52 PM CDT) eGFR [...] 08/08/2023 9:40 PM CDT us Parris Celestin CLERK CARRIER LAB BLOOD ORDERABLES Sri l Result Performing Organization Address [facility] [employer] de Phone Number [facility] [place] [address] * Phosphorus (08/08/2023 8:52 PM CDT) Pathologist [facility] Phosphorus, pl 2.5 2.3 - 4.5 mg/dL Blood 08/08/2023 8:52 PM CDT 08/08/2023 9:40 PM CDT Parris Celestin CLERK CARRIER LAB BLOOD ORDERABLES Sri l Result [facility] [place] [address] * Magnesium (08/08/2023 8:52 PM CDT) [facility] Magnesium 2.0 1.4 - 2.5 mg/dL Blood 08/08/2023 8:52 PM CDT 08/08/2023 9:40 PM CDT Parris Celestin CLERK CARRIER LAB BLOOD ORDERABLES Sri l Result Performing Organization Address City/[facility] [address] * (ABNORMAL) Comprehensive metabolic panel (08/08/2023 8:52 PM CDT) [facility] Sodium 138 135 - 145 mmol/L Potassium, pl 4.2 3.3 - 4.9 mmol/L [facility] Chloride 106 97 - 110 mmol/L [facility] CO2 24 22 - 32 mmol/L [facility] Anion gap 8 2 - 15 mmol/L [facility] BUN 17 6 - 25 mg/dL [facility] Creatinine 0.59(L) 0.60 - 1.10 mg/dL [facility] Glucose 119 70 - 199 mg/dL [facility] Comment: Interpretive Data Fasting glucose [...] 2022. Calcium 9.6 8.5 - 10.3 mg/dL [facility] Bilirubin, total 0.6 0.1 - 1.2 mg/dL [facility] Protein, pl 7.0 6.5 - 8.5 g/dL [facility] Albumin 4.1 3.5 - 5.0 g/dL [facility] Alk phos 72 40 - 130 Units/L [facility] ALT 21 7 - 45 Units/L [facility] AST 23 10 - 45 Units/L [facility] Blood 08/08/2023 8:52 PM CDT 08/08/2023 9:40 PM CDT Parris Celestin NP LAB BLOOD ORDERABLES Sri l Result [facility] Department of Laboratories [place], [place] [id number] * (ABNORMAL) CBC without differential (08/08/2023 8:52 PM CDT) WBC 7.0 3.8 - 9.9 K/cumm Hgb 12.1 11.9 - 15.5 g/dL [facility] Hct 36.4 35.6 - 45.5 % [facility] Plt 231 150 - 400 K/cumm [facility] MPV 10.0 9.1 - 12.3 fL [facility] RBC 3.74(L) 3.90 - 5.20 M/cumm [facility] MCV 97.3(H) 81.3 - 96.4 fL [facility] MCH 32.4 27.1 - 33.3 pg [facility] MCHC 33.2 32.3 - 35.7 g/dL [facility] RDW CV 13.4 11.1 - 14.9 % [facility] RDW SD 48.3(H) 35.7 - 48.1 fL [facility] NRBC abs 0.00 0.00 - 0.01 K/cumm [facility] Blood 08/08/2023 8:52 PM CDT 08/08/2023 9:40 PM CDT us Parris Celestin CLERK CARRIER LAB BLOOD ORDERABLES Sri l Result Performing Organization Address [facility] de Phone Number [facility] [place] [address] * (ABNORMAL) Urinalysis, microscopic only (08/08/2023 7:59 PM CDT) WBC, ur >50(A) 0 - 5 /HPF RBC, ur 6-10(A) 0 - 2 /HPF [facility] Epithelial cells, squamous, ur 1-5 0 - 5 /HPF [facility] Bacteria, ur 4+(A) [facility] Mucous, ur Present(A) [facility] Urine 08/08/2023 7:59 PM CDT 08/08/2023 8:35 PM CDT us Chandler Verdugo MD LAB URINE ORDERABLES Final Result Performing Organization Address [facility] de Phone Number [facility] [place] [address] * (ABNORMAL) Urinalysis reflex to microscopic (08/08/2023 7:59 PM CDT) Color, ur Straw Yellow Clarity, ur Cloudy(A) Clear [facility] Specific gravity, ur 1.014 1.003 - 1.030 [facility] pH, urine 6.0 [facility] Comment: Interpretive Data ? Urine pH is affected by diet, medications, systemic acid-base disturbances, and renal tubular function. ??pH may affect urinary stone formation. ??For example, urine pH below 6.0 may help reduce the tendency for calcium phosphate stones and pH greater than 6.0 may reduce the tendency for uric acid stone formation. Source: [facility] Current Interpretive Data was last revised on 2017 Protein, ur ql Trace Negative [facility] Glucose, ur ql Negative Negative [facility] Ketones, ur Negative Negative [facility] Bilirubin, ur Negative Negative [facility] Blood, ur Trace(A) Negative [facility] Urobilinogen, ur <2.0 <2.0 mg/dL [facility] Nitrite, ur Positive(A) Negative [facility] Leukocyte esterase, ur 3+(A) Negative [facility] UA reflex comment Reflex to microscopic UA will be performed. [facility] Urine 08/08/2023 7:59 PM CDT 08/08/2023 8:35 PM CDT Chandler Verdugo MD LAB URINE ORDERABLES Final Result Performing Organization Address [facility] de Phone Number [facility] Department [place] [address] * POCT glucose (08/08/2023 7:40 PM CDT) Glucose, POC 126 70 - 199 mg/dL Blood 08/08/2023 7:40 PM CDT 08/08/2023 7:40 PM CDT Fred Boone MD LAB POCT ORDERABLES - DEVICE Fin al Result Performing Organization Address [facility] de Phone Number [facility] [place] [address] * (ABNORMAL) POCT glucose (08/08/2023 5:11 PM CDT) Glucose, POC 249(H) 70 - 199 mg/dL Blood 08/08/2023 5:11 PM CDT 08/08/2023 5:11 PM CDT us Fred Boone MD LAB POCT ORDERABLES - DEVICE Fin al Result Performing Organization Address [facility] [place] [address] * POCT glucose (08/08/2023 12:32 PM CDT) Glucose, POC 133 70 - 199 mg/dL Blood 08/08/2023 12:3 2 PM CDT 08/08/2023 12:32 PM CDT Fred Boone MD LAB POCT ORDERABLES - DEVICE Fin al Result Performing Organization Address [facility] de Phone Number [facility] [place] [address] * POCT glucose (08/08/2023 8:59 AM CDT) Glucose, POC 162 70 - 199 mg/dL Blood 08/08/2023 8:59 AM CDT 08/08/2023 8:59 AM CDT Fred Booen MD LAB POCT ORDERABLES - DEVICE Fin al Result Performing Organization Address [facility] de Phone Number [facility] [place] [address] * CT Head WO Contrast (08/08/2023 3:26 [...] area of laminar necrosis. ??Patchy periventricular hypodensities, credit and collections representative of chronic microvascular disease. Topogram demonstrates [...] area of laminar necrosis. Patchy periventricular hypodensities, credit and collections representative of chronic microvascular disease. Topogram demonstrates [...] agrees with it. Electronically signed by: Delmy Wheeelr M.D. Parris Celestin NP IMG CT PROCEDURES [...] Sri l Result Performing Organization Address City/[facility]/ZIP Co de Phone Number [facility] Department [place] [address] * Phosphorus (08/07/2023 8:32 PM CDT) Phosphorus, pl 3.0 2.3 - 4.5 mg/dL Blood 08/07/2023 8:32 PM CDT 08/07/2023 8:50 PM CDT Parris Celestin NP LAB BLOOD ORDERABLES Sri l Result [facility] Department [place] [address] * (ABNORMAL) Magnesium (08/07/2023 8:32 PM CDT) Pathologist [facility] Magnesium 2.8(H) 1.4 - 2.5 mg/dL Blood 08/07/2023 8:32 PM CDT 08/07/2023 8:50 PM CDT Parris Celestin CLERK CARRIER LAB BLOOD ORDERABLES Sri l Result Performing Organization Address [facility] de Phone Number [facility] Department [place] [address] * (ABNORMAL) Comprehensive metabolic panel (08/07/2023 8:32 PM CDT) [facility] Sodium 139 135 - 145 mmol/L Potassium, pl 4.3 3.3 - 4.9 mmol/L [facility] Chloride 104 97 - 110 mmol/L [facility] CO2 25 22 - 32 mmol/L [facility] Anion gap 10 2 - 15 mmol/L [facility] BUN 13 6 - 25 mg/dL [facility] Creatinine 0.57(L) 0.60 - 1.10 mg/dL [facility] Glucose 128 70 - 199 mg/dL [facility] Comment: Interpretive Data Fasting glucose [...] 2022. Calcium 9.5 8.5 - 10.3 mg/dL [facility] Bilirubin, total 0.6 0.1 - 1.2 mg/dL [facility] Protein, pl 7.4 6.5 - 8.5 g/dL [facility] Albumin 4.1 3.5 - 5.0 g/dL [facility] Alk phos 73 40 - 130 Units/L [facility] ALT 22 7 - 45 Units/L [facility] AST 25 10 - 45 Units/L [facility] Blood 08/07/2023 8:32 PM CDT 08/07/2023 8:50 PM CDT us Parris Celestin CLERK CARRIER LAB BLOOD ORDERABLES Sri l Result [facility] Department [place] [address] * (ABNORMAL) CBC without differential (08/07/2023 8:32 PM CDT) [facility] WBC 8.4 3.8 - 9.9 K/cumm Hgb 12.4 11.9 - 15.5 g/dL [facility] Hct 37.8 35.6 - 45.5 % [facility] Plt 220 150 - 400 K/cumm [facility] MPV 10.1 9.1 - 12.3 fL [facility] RBC 3.90 3.90 - 5.20 M/cumm [facility] MCV 96.9(H) 81.3 - 96.4 fL [facility] MCH 31.8 27.1 - 33.3 pg [facility] MCHC 32.8 32.3 - 35.7 g/dL [facility] RDW CV 13.4 11.1 - 14.9 % [facility] RDW SD 47.4 35.7 - 48.1 fL [facility] NRBC abs 0.00 0.00 - 0.01 K/cumm [facility] Blood 08/07/2023 8:32 PM CDT 08/07/2023 8:50 PM CDT us Parris Celestin CLERK CARRIER LAB BLOOD ORDERABLES Sri l Result [facility] [place] [address] * POCT glucose (08/07/2023 8:01 PM CDT) Glucose, POC 104 70 - 199 mg/dL Blood 08/07/2023 8:01 PM CDT 08/07/2023 8:01 PM CDT Fred Boone MD LAB POCT ORDERABLES - DEVICE Fin al Result Performing Organization Address [facility] [facility] de Phone Number [facility] [place] [address] * POCT glucose (08/07/2023 5:13 PM CDT) Glucose, POC 134 70 - 199 mg/dL Blood 08/07/2023 5:13 PM CDT 08/07/2023 5:13 PM CDT Fred Boone MD LAB POCT ORDERABLES - DEVICE Fin al Result Performing Organization Address [facility] de Phone Number [facility] [place] [place] [address] * XR chest 1 view (Portable) (08/07/2023 [...] signed by: Tommy Dennison M.D. Parris Celestin CLERK CARRIER IMG XR PROCEDURES Final R esult * [...] Parris Celestin NP LAB BLOOD ORDERABLES Sri anoop Result [facility] [place] [address] * (ABNORMAL) Lipid panel (08/07/2023 2:35 PM [...] on 2017. Triglycerides 145 <=149 mg/dL [facility] Comment: Interpretive Data Ages < or [...] on 2017. HDL 32(L) >=40 mg/dL [facility] Comment: Interpretive Data Ages < or [...] 2017. LDL, calculated 33 <=129 mg/dL [facility] Comment: Interpretive Data Ages < or [...] revised on 2017. Non-HDL Cholesterol 62 mg/dL [facility] Comment: Interpretive Data Ages < [...] last revised on 2017. Chol/HDL ratio 3 [facility] Blood 08/07/2023 2:35 PM CDT 08/07/2023 2:51 PM CDT Parris Celestin NP LAB BLOOD ORDERABLES Sri l Result Performing Organization Address [facility] de Phone Number [facility] [place] [address] * (ABNORMAL) Hemoglobin A1c (08/07/2023 2:35 PM CDT) Hgb A1C 6.1(H) 4.0 - 5.6 % Estimated Average Glucose 128 mg/dL [facility] Comment: The ADA recommends reporting [...] l Result Performing Organization Address [facility] de Phone Number [facility] [place] [address] * (ABNORMAL) Protime-INR (08/07/2023 2:35 PM CDT) PT 13.8(H) 10.3 - 13.7 sec INR 1.21(H) 0.90 - 1.20 [facility] Comment: Interpretive data Oral anticoagulant [...] Sri l Result Performing Organization Address City/[facility] [facility] de Phone Number [facility] [place] [address] * aPTT (08/07/2023 2:35 PM CDT) [facility] aPTT 30 28 - 38 sec Comment: Interpretive Data Heparin therapeutic range: 66.0 - 100.0 seconds. Range based on correlation with therapeutic heparin activity range of 0.3 - 0.7 Units/mL. Current interpretive data was last revised on 2022. Blood 08/07/2023 2:35 PM CDT 08/07/2023 2:50 PM CDT Parris Celestin NP LAB BLOOD ORDERABLES Sri l Result Performing Organization Address City/[facility] de Phone Number [facility] [place] [address] * Type and screen (08/07/2023 2:35 PM CDT) Pathologist [facility] Gian, indirect Negative ABO Rh O Positive [facility] Blood 08/07/2023 2:35 PM CDT 08/07/2023 2:49 PM CDT Narrative [facility] - 08/07/2023 3:39 PM CDT Has the patient had Daratumumab or Isatuximab in the past 6 months?->Unknown Parris Celestin NP LAB BLOOD BANK TEST ORDER GEE Final Result Performing Organization Address [facility] de Phone Number [facility] [place] [place] [address] * (ABNORMAL) CBC without differential (08/07/2023 2:35 PM CDT) [facility] WBC 6.7 3.8 - 9.9 K/cumm Hgb 12.0 11.9 - 15.5 g/dL [facility] Hct 36.0 35.6 - 45.5 % [facility] Plt 214 150 - 400 K/cumm [facility] MPV 10.3 9.1 - 12.3 fL [facility] RBC 3.70(L) 3.90 - 5.20 M/cumm [facility] MCV 97.3(H) 81.3 - 96.4 fL [facility] MCH 32.4 27.1 - 33.3 pg [facility] MCHC 33.3 32.3 - 35.7 g/dL [facility] RDW CV 13.4 11.1 - 14.9 % [facility] RDW SD 48.2(H) 35.7 - 48.1 fL [facility] NRBC abs 0.00 0.00 - 0.01 K/cumm [facility] Blood 08/07/2023 2:35 PM CDT 08/07/2023 2:59 PM CDT Parris Celestin NP LAB BLOOD ORDERABLES Sri l Result Performing Organization Address City/[facility]/ZIP Co de Phone Number [facility] [place] [address] * Phosphorus (08/07/2023 2:35 PM CDT) [facility] Phosphorus, pl 2.9 2.3 - 4.5 mg/dL Blood 08/07/2023 2:35 PM CDT 08/07/2023 2:51 PM CDT Parris Celestin CLERK CARRIER LAB BLOOD [place] [address] * Magnesium (08/07/2023 2:35 PM CDT) [facility] Magnesium 1.6 1.4 - 2.5 mg/dL Blood 08/07/2023 2:35 PM CDT 08/07/2023 2:51 PM CDT Parris Celestin CLERK CARRIER LAB BLOOD ORDERABLES Sri l Result Performing Organization Address [facility] [address] * Comprehensive metabolic panel (08/07/2023 2:35 PM CDT) [facility] Sodium 137 135 - 145 mmol/L Potassium, pl 4.9 3.3 - 4.9 mmol/L [facility] Chloride 107 97 - 110 mmol/L [facility] CO2 23 22 - 32 mmol/L [facility] Anion gap 7 2 - 15 mmol/L [facility] BUN 18 6 - 25 mg/dL [facility] Creatinine 0.63 0.60 - 1.10 mg/dL [facility] Glucose 117 70 - 199 mg/dL [facility] Comment: Interpretive Data Fasting glucose [...] Calcium 9.2 8.5 - 10.3 mg/dL [facility] Bilirubin, total 0.6 0.1 - 1.2 mg/dL [facility] Protein, pl 7.1 6.5 - 8.5 g/dL [facility] Albumin 4.0 3.5 - 5.0 g/dL [facility] Alk phos 74 40 - 130 Units/L [facility] ALT 21 7 - 45 Units/L [facility] AST 24 10 - 45 Units/L [facility] Blood 08/07/2023 2:35 PM CDT 08/07/2023 2:51 PM CDT us Parris Celestin NP LAB BLOOD ORDERABLES Sri l Result [facility] [place] [address] * Troponin I high-sensitivity 2-hour (08/07/2023 2:35 PM CDT) Trop I hs 5 <=17 ng/L Comment: Interpretive Data For further [facility] resources including the diagnostic algorithm and an aid in interpretation, copy and paste this link: [email or web address]/[email or web address] Current Interpretive Data last revised 2019. Trop I hs delta -1 ng/L [facility] Trop I hs interp Insignificant [facility] Blood 08/07/2023 2:35 PM CDT 08/07/2023 2:51 PM CDT us Jeana Peters MD LAB BLOOD ORDERABLES Fi nal Result [facility] [place] [address] * ECG 12 lead (08/07/2023 2:22 PM CDT) Ventricular Rate EKG/Min 76 BPM [facility] Atrial Rate 64 BPM [facility] QRS-Interval (MSEC) 100 ms [facility] QT-Interval (MSEC) 400 ms [facility] QTc 450 ms [facility] R [place] 77 degrees [facility] T [place] 23 degrees [facility] Diagnosis Atrial fibrillation Abnormal ECG Confirmed by Jose Antonio Bhandari MD ([id number]) on 08/07/2023 8:58:56 PM [facility] 08/07/2023 2:22 PM CDT 08/07/2023 8:58 PM CDT us Parris Celestin CLERK CARRIER ECG ORDERABLES Final Res ult Performing Organization Address [facility] de Phone Number [facility] * POCT glucose (08/07/2023 2:02 PM CDT) Pathologist [facility] Glucose, POC 109 70 - 199 mg/dL Blood 08/07/2023 2:02 PM CDT 08/07/2023 2:02 PM CDT us Chandler Verdugo MD LAB POCT ORDERABLES - DESTINEE CE Final Result Performing Organization Address [facility] de Phone Number [facility] [place] [address] * IR Percutaneous Arterial Thrombectomy, Intracranial (08/07/2023 [...] conclusion of the case. Dictated by: Mor Rliey MD The radiology attending physician has personally [...] single wall puncture needle 8 Fr Terumo [place] sheath 10cm Zoom 88 Long Sheath 3mm [...] and were stored to PACS. A 8 [place] sheath was inserted over a 3 mm [...] single wall puncture needle 8 Fr Terumo [place] sheath 10cm Zoom 88 Long Sheath 3mm [...] and were stored to PACS. A 8 [place] sheath was inserted over a 3 mm [...] 12-LEAD (08/07/2023 12:34 PM CDT) Narrative [facility] - 08/07/2023 12:34 PM CDT Fred Elena [...] Final R esult [facility] * [facility] CRIT[facility] CARE ILL/INJURED PATIENT INIT 30-74 MIN [...] separate workstation for processing by RAPID software ([employer]) to produce automated calculations of the estimated [...] Artery: no occlusion or significant stenosis L ELECTROPLATER: no occlusion or significant stenosis R ELECTROPLATER: no occlusion or significant stenosis No cerebral [...] separate workstation for processing by RAPID software ([employer]) to produce automated calculations of the estimated [...] Artery: no occlusion or significant stenosis L ELECTROPLATER: no occlusion or significant stenosis R ELECTROPLATER: no occlusion or significant stenosis No cerebral [...] 5 PM CDT 08/07/2023 12:23 PM CDT us Jeana Peters MD LAB BLOOD ORDERABLES Fi nal Result [facility] Department [place] [address] * Differential, auto (08/07/2023 12:15 PM CDT) Neutrophil abs 5.2 1.5 - 6.5 K/cumm Imm gran abs 0.0 0.0 - 0.1 K/cumm [facility] Lymphocyte abs 1.8 0.8 - 3.3 K/cumm [facility] Monocyte abs 0.7 0.2 - 0.8 K/cumm [facility] Eosinophil abs 0.2 0.0 - 0.5 K/cumm [facility] Basophil abs 0.0 0.0 - 0.1 K/cumm [facility] Neutrophil pct 65.2 % [facility] Comment: Interpretive Data Percent cell count reference ranges are not reported, since discordance with absolute values may lead to misinterpretation of CBC data. Current Interpretive Data was last revised on 2017. Imm gran pct 0.3 % [facility] Comment: Interpretive Data Percent cell count reference ranges are not reported, since discordance with absolute values may lead to misinterpretation of CBC data. Current Interpretive Data was last revised on 2017. Lymphocyte pct 23.2 % [facility] Comment: Interpretive Data Percent cell count reference ranges are not reported, since discordance with absolute values may lead to misinterpretation of CBC data. Current Interpretive Data was last revised on 2017. Monocyte pct 8.9 % [facility] Comment: Interpretive Data Percent cell count reference ranges are not reported, since discordance with absolute values may lead to misinterpretation of CBC data. Current Interpretive Data was last revised on 2017. Eosinophil pct 2.0 % [facility] Comment: Interpretive Data Percent cell count reference ranges are not reported, since discordance with absolute values may lead to misinterpretation of CBC data. Current Interpretive Data was last revised on 2017. Basophil pct 0.4 % [facility] Comment: Interpretive Data Percent cell count reference ranges are not reported, since discordance with absolute values may lead to misinterpretation of CBC data. Current Interpretive Data was last revised on 2017. Blood 08/07/2023 12:1 5 PM CDT 08/07/2023 12:24 PM CDT us Jeana Peters MD LAB BLOOD ORDERABLES Fi nal Result [facility] [place] [address] * Heparin anti factor Xa activity (08/07/2023 [...] BLOOD ORDERABLES Ed ited Result - Final [facility] [place] [address] * Troponin I high-sensitivity series (baseline, 2hr, [...] nal Result Performing Organization Address [facility] [address] * aPTT (08/07/2023 12:15 PM CDT) aPTT 32 28 - 38 sec Comment: Code Blue Specimen Interpretive Data Heparin therapeutic range: 66.0 - 100.0 seconds. Range based on correlation with therapeutic heparin activity range of 0.3 - 0.7 Units/mL. Current interpretive data was last revised on 2022. Blood (Blood, Venous) 08/07/2023 12:15 PM CDT 08/07/2023 12:23 PM CDT Narrative [facility] - 08/07/2023 12:45 PM CDT Potential stroke patient. Jeana Peters MD LAB BLOOD ORDERABLES Fi nal Result Performing Organization Address [facility] [address] * (ABNORMAL) Comprehensive metabolic panel (08/07/2023 12:15 PM CDT) Sodium 140 135 - 145 mmol/L Comment:Code Blue Specimen Potassium, pl 4.4 3.3 - 4.9 mmol/L [facility] Comment:Code Blue Specimen Chloride 107 97 - 110 mmol/L [facility] Comment:Code Blue Specimen CO2 23 22 - 32 mmol/L [facility] Comment:Code Blue Specimen Anion gap 10 2 - 15 mmol/L [facility] Comment:Code Blue Specimen BUN 18 6 - 25 mg/dL [facility] Comment:Code Blue Specimen Creatinine 0.56(L) 0.60 - 1.10 mg/dL [facility] Comment:Code Blue Specimen Glucose 116 70 - 199 mg/dL [facility] Comment: Code Blue Specimen Interpretive Data [...] 2022. Calcium 9.9 8.5 - 10.3 mg/dL [facility] Comment:Code Blue Specimen Bilirubin, total 0.5 0.1 - 1.2 mg/dL [facility] Comment:Code Blue Specimen Protein, pl 7.4 6.5 - 8.5 g/dL [facility] Comment:Code Blue Specimen Albumin 4.4 3.5 - 5.0 g/dL [facility] Comment:Code Blue Specimen Alk phos 82 40 - 130 Units/L [facility] Comment:Code Blue Specimen ALT 21 7 - 45 Units/L [facility] Comment:Code Blue Specimen AST 22 10 - 45 Units/L [facility] Comment:Code Blue Specimen Blood (Blood, Venous) 08/07/2023 12:15 PM CDT 08/07/2023 12:23 PM CDT [facility]ative [facility] - 08/07/2023 12:55 PM CDT Potential Stroke Patient us Jeana Peters MD LAB BLOOD ORDERABLES Fi nal Result [facility] Department [place] [address] * (ABNORMAL) CBC with auto differential (08/07/2023 12:15 PM CDT) WBC 7.9 3.8 - 9.9 K/cumm Comment:Code Blue Specimen Hgb 12.5 11.9 - 15.5 g/dL [facility] Hct 38.3 35.6 - 45.5 % [facility] Plt 229 150 - 400 K/cumm [facility] MPV 10.0 9.1 - 12.3 fL [facility] RBC 3.88(L) 3.90 - 5.20 M/cumm [facility] MCV 98.7(H) 81.3 - 96.4 fL [facility] MCH 32.2 27.1 - 33.3 pg [facility] MCHC 32.6 32.3 - 35.7 g/dL [facility] RDW CV 13.3 11.1 - 14.9 % [facility] RDW SD 48.1 35.7 - 48.1 fL [facility] NRBC abs 0.00 0.00 - 0.01 K/cumm [facility] Blood (Blood, Venous) 08/07/2023 12:15 PM CDT 08/07/2023 12:24 PM CDT Narrative [facility] - 08/07/2023 12:38 PM CDT Potential Stroke Patient us Jeana Peters MD LAB BLOOD ORDERABLES Fi nal Result Performing Organization Address City/[facility]/ZIP Co de Phone Number [facility] Department [place] [address] * POCT prothrombin time, whole blood (08/07/2023 12:12 PM CDT) PT, POC 11.7 10.6 - 13.5 sec INR, bld, POC 1.0 0.8 - 1.2 [facility] Blood 08/07/2023 12:1 2 PM CDT 08/07/2023 12:12 PM CDT us Chandler Verdugo MD LAB POCT ORDERABLES - DESTINEE CE Final Result [facility] [place] [address] * POCT glucose (08/07/2023 12:11 PM CDT) Glucose, POC 115 70 - 199 mg/dL Blood 08/07/2023 12:1 1 PM CDT 08/07/2023 12:11 PM CDT us Notinfile Unknown LAB POCT ORDERABLES - DEVICE F inal Result [facility] Department [place] [address] documented in this encounter Visit Diagnoses Diagnosis [...] Mendez RN) 0813 (Given - Provider: Gris Buck, ARMANI) carvediloL (COREG) tablet 12.5 mg 12.5 mg, [...] Mendez RN)2208 (Given - Provider: Chau Andrade) 0753 (Not [...] Denisa Serna, ARMANI)1500 (Given - Provider: Cyndie Cornejo, ARMANI)2041 (Given - Provider: Chau Andrade) 0505 (Given - Provider: Chau Andrade)1446 (Given - Provider: Chad Mendez, ARMANI)2208 (Given - Provider: Chau Andrade) 0626 (Given - Provider: Chau Andrade)1330 (Given - Provider: Gris Buck, ARMANI) insulin lispro (HumaLOG, ADMELOG) 100 unit/mL [...] BG 132)1710 (Given - Provider: Cyndie Cornejo RN)203 (Not Given - Provider: Chau Andrade - Reason: Order parameters not met) 0740 (Given - Provider: Chad Mendez, ARMANI)1154 (Given - Provider: Chad Mendez RN)1719 (Not [...] Denisa Serna RN) 0501 (Given - Provider: Chau Andrade) 0626 (Given - Provider: Chau Andrade) [...] Chau Andrade)1330 (Not Given - Provider: Gris Buck, ARMANI - Reason: Loss of IV access) PRN Medication Order 08/08/2023 08/09/2023 08/10/2023 acetaminophen (TYLENOL) tablet 650 mg(Linked Group 3) 650 mg, oral, Every 4 hours PRN, 1st line for pain, Starting on Thu08/07/23 at 1423, Administer if patient can swallow tablets., Indications: Pain 0031 (Given - Provider: Denisa Serna, RN)1828 (Given - Provider: Gris Buck, ARMANI) 1754 (Given - Provider: Chad Mendez RN) [...] 08/06 senna 1.76 mg/mL syrup 8.8 mg 08/07/2023 sodium chloride 0.9% flush 0.5-20 mL [...] 08/07/2023 documented in this encounter Care Teams Doctor Of Osteopathy Relationship Specialty Start Date End Date Cuba Larsen MD PCP - General Family Medicine 01/23/22 Chris Mendes MD Referring Physician Cardiology 12/23/21 Keli Orozco, side door worker Failure Coordinator Transplant 04/15/23 documented as of this encounter
--- OUTSIDE RECORDS SUMMARY | 2024-03-25 10:58 | XMS_ITS | Encounter Summary ---
Author Organization [facility] Healthcare Address [address] [place] [address] Care Team Providers Care Associate Merchandise Planner Name Role Phone Chris Mendes MD Unavailable [phone] Cuba Larsen MD Primary Care Provider [phone] Keli Orozco RN Unavailable Unavailable Reason for Visit * Reason Onset Date Comments Referral Request 05/22/2023 Encounter Details Date Type Department Care Team (Late st Contact Info) Description 05/22/2023 Telephone [facility] Family Medicine [address] [address] Cuba Larsen MD [address] [place] [address] Referral Request Social History Tobacco Use [...] on file Legal Sex Female 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 The correct fax number is [phone]. Does message need to be routed? Yes-Action Needed * Telephone Encounter - Leandra Winters RN - 05/25/2023 12:[address] VO Dr Larsen referral order placed. * Telephone Encounter - Komal Mendoza - 05/22/2023 10:36 AM CST Referral Provider Name (if patient is seeing a nurse practitioner or physician carpenter assistant installer, list the SELF PAY SPECIALIST/PA, but also their collaborating doctor): Dr Ayala Dorado, DPM Specialty: Orthopedic Address: [address] [place] [address], Zip: [facility] [address] Phone: [phone] Diagnosis Code/Symptom/Reason Patient is being seen: [place] on left baby toe Date of Appointment: 05/27/23 NPI#: [id number] Tax ID#: Is insurance in chart up to date? Yes Additional Comments: Does message need to be routed? Yes-Action Needed L VBA DEVELOPER documented in this encounter Plan of Treatment Not on file documented as of this encounter Visit Diagnoses Diagnosis [place] of toe- Primary Corns and callosities documented in this encounter Care Teams Associate Merchandise Planner Relationship Specialty Start Date End Date Cuba Larsen MD PCP - General Family Medicine 01/23/22 Chris Mendes MD Referring Physician Cardiology 12/23/21 Keli Orozco, shell coremaker Failure Coordinator Transplant 04/15/23 documented as of this encounter
--- OUTSIDE RECORDS SUMMARY | 2024-03-25 10:58 | XMS_ITS | Encounter Summary ---
Author Organization [facility] Healthcare Address [address] [place] [address] Care Team Providers Care Thai Masseur Name Role Phone Chris Mendes MD Unavailable [phone] Keli Orozco RN Unavailable Unavailable Alysa Newton RN Unavailable [phone] Cuba Larsen MD Primary Care Provider [phone] Reason for Visit * Reason Onset Date Comments Medical Question/Miscellaneous 02/16/2023 Encounter Details Date Type Department Care Team (Late st Contact Info) Description 02/16/2023 Nurse Triage [facility] Family Medicine [address] [place] [phone] Cuba Larsen MD [address] [place] [address] Social History Tobacco Use Types Packs/Day Years [...] on file 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 She has appt here 02/26. RONMENTAL ATTORNEY * Telephone Encounter - Leandra Jean - [...] message need to be routed? Yes-Action Needed RONMENTAL ATTORNEY * Telephone Encounter - Raymond Saha RN - 02/18/2023 11:00 AM ENVIRONMENTAL ATTORNEY Patient reports she is doing better. Hasn't had fever for 2 days, has occasional cough. Mostly c/o fatigue. Recommended fluids, rest, mucinex. If any SOB or chest pain, worsening of symptoms go to ER. RONMENTAL ATTORNEY * Telephone Encounter - Leandra Winters RN - 02/16/2023 1:09 PM CST Left Vm to call back RONMENTAL ATTORNEY * Telephone Encounter - Toshia Somers RN - 02/16/2023 11:35 AM ENVIRONMENTAL ATTORNEY No call has been made by food and beverage associate. food and beverage associate at capacity- routing to clinical team to address. Reason for Disposition Nursing judgment Protocols used: No Protocol [id number] RONMENTAL ATTORNEY * Telephone Encounter - Toshia Somers RN - 02/16/2023 11:35 AM ENVIRONMENTAL ATTORNEY Regarding: Positive for Covid ----- Message from Karina Mcclure sent at 02/16/2023 9:31 AM ENVIRONMENTAL ATTORNEY ----- Symptom Based Call Chief Complaint(s): Positive for Covid Duration: Thursday What type of symptom(s) is the patient experiencing? Non-Emergent. Is this a new or reoccurring symptom(s)? new What have you tried to help your symptom(s)? Head cold, did have fever Why was appointment not scheduled? Requesting advice from clinical tractor driver teamster. Additional Comments: did take tylenol Does message need to be routed? Yes-Action Needed RONMENTAL ATTORNEY documented in this encounter Plan of Treatment Not on file documented as of this encounter Visit Diagnoses Not on filedocumented in this encounter Care Teams Thai Masseur Relationship Specialty Start Date End Date Cuba Larsen MD [address] [facility] [address] [place] [address] PCP - General Family Medicine 01/23/22 Chris Mendes MD Referring Physician Cardiology 12/23/21 Keli Orozco, underwriting internCutter Tender Cardiology 12/23/21 04/15/23 Alysa Newton, RN [address] [facility] [address] [place] [address] Cutter Tender Cardiology 12/23/21 documented as of this encounter
--- OUTSIDE RECORDS SUMMARY | 2024-03-25 10:58 | XMS_ITS | Encounter Summary ---
Author Organization [facility] Address [address] [place] [address] Phone Care Team Providers Care Salesforce Trainer Name Role Phone Chris Mendes MD Unavailable [phone] Cuba Larsen MD Primary Care Provider [phone] Keli Orozco RN Unavailable Unavailable Tami Mcknight RN Unavailable Unavailab le Reason for Visit * Consultation (Routine) - Closed Specialty Diagnoses / Procedures Referred By Contac t Referred To Contact Cardiology Diagnoses Mitral valve prolapse Cuba Larsen MD [address] [address] Phone: tel: fax: Chris Mendes MD [address] [address] Phone: tel: fax: Referral ID Status Reason Start Date Expiration Date V isits Requested Visits Authorized [id number] Closed Specialty Services Required 01/23/2023 01/25/2024 12 12 Encounter Details Date Type Department Care Team (Late st Contact Info) Description 11/02/2023 10:30 AM CDT Office Visit [facility] Cardiology [address] [facility] [address] [place] [address] Racquel Abebe NP [address] [place] [address] CVA (Primary Dx); Paroxysmal atrial fibrillation; Nonischemic [...] on file 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 Her wholesale and retail merchant is Dr. Mendes . Son present who [...] see her sooner if needed. [facility] Abebe, [facility] 11/02/2023 CC: Cuba Larsen MD [address] [facility] [address] [place] [address] [place] [address] documented in this encounter Plan of Treatment Not on file documented as of this encounter Procedures Procedure Name Priority Date/Time Associated Diagnosis Comments BASIC METABOLIC PANEL Routine 11/02/2023 1:28 PM CDT Nonischemic cardiomyopathy documented in this encounter Results * (ABNORMAL) Basic metabolic panel (11/02/2023 1:28 PM CDT) Pathologist [facility] Glucose 128(H) 65 - 99 mg/dL [facility] [...] 11/02/2023 1:29 PM CDT us Racquel Abebe PLANT TECHNICAL SPECIALIST LAB BLOOD ORDERABLES Final R esult [facility] [id number] [id number] documented in this encounter Visit Diagnoses Diagnosis CVA- Primary Paroxysmal atrial fibrillation Atrial fibrillation Nonischemic cardiomyopathy Other primary cardiomyopathies Coronary artery disease Aortic stenosis documented in this encounter Discontinued Medications Medication Sig Discontinue Reason Start Date End Da te spironolactone (ALDACTONE) 25 mg tablet TAKE 1 TABLET (25 MG TOTAL) BY MOUTH DAILY. Reorder 03/19/2023 11/02/2023 documented as of this encounter Care Teams Salesforce Trainer Relationship Specialty Start Date End Date Cuba Larsen MD PCP - General Family Medicine 01/23/22 Chris Mendes MD Referring Physician Cardiology 12/23/21 Keli Orozco, chief learning officer Failure Coordinator Transplant 04/15/23 Tami Mcknight chief learning officer Failure Coordinator Cardiology 09/14/23 documented as of this encounter
--- OUTSIDE RECORDS SUMMARY | 2024-03-25 10:58 | XMS_ITS | Encounter Summary ---
Author Organization [facility] Address [address] [place] [address] Phone Care Team Providers Care Urban And Regional Planner Name Role Phone Chris Mendes MD Unavailable [phone] Cuba Larsen MD Primary Care Provider [phone] Keli Orozco RN Unavailable Unavailable Tami Mcknight RN Unavailable Unavailab le Encounter Details Date Type Department Care Team (Late st Contact Info) Description 11/06/2023 10:00 AM CDT Office Visit [facility] Radiology, Interventional Radiology [address] [facility] [place] [id number] Enid Erazo PA [address] [place] [address] 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 She presented on 08/07/2023 at [facility] ED with left facial droop, left arm [...] extremities Gait and coordination: Gait is normal. Pkeiho-iu-[id number] coordination is normal mRS 0 NIHSS 0 [...] Primary documented in this encounter Care Teams Urban And Regional Planner Relationship Specialty Start Date End Date Cuba Larsen MD PCP - General Family Medicine 01/23/22 Chris Mendes MD Referring Physician Cardiology 12/23/21 Keli Orozco, security system sales consultant Failure Coordinator Transplant 04/15/23 Tami Mcknight RN Heart Failure Coordinator Cardiology 09/14/23 documented as of this encounter
--- OUTSIDE RECORDS SUMMARY | 2024-03-25 10:58 | XMS_ITS | Encounter Summary ---
Author Organization [facility] Healthcare Address [address] [place] [address] Care Team Providers Care Guest Service Supervisor Name Role Phone Chris Mendes MD Unavailable [phone] Cuba Larsen MD Primary Care Provider [phone] Keli Orozco RN Unavailable Unavailable Tami Mcknight RN Unavailable Unavailab le Reason for Visit * Reason Onset Date Comments Referral Request 10/07/2023 Encounter Details Date Type Department Care Team (Late st Contact Info) Description 10/07/2023 Telephone [facility] Medical [facility] Family Medicine at [address] [place] [address] Cuba Larsen MD [address] [place] [address] Referral Request Social History Tobacco Use [...] on file 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 Araceli Johnson Specialty: Neurology Address: [address] [place] [address], Zip: [place] [address] Diagnosis Code/Symptom/Reason Patient is being seen: Z86.73 Date of Appointment: 10/09/23 NPI#: [id number] Tax ID#: [id number] Is insurance in chart up to date? Yes, needing essence insurance referral Additional Comments: n/a Does message need to be routed? Yes-Action Needed documented in this encounter Plan of Treatment Not on file documented as of this encounter Visit Diagnoses Not on filedocumented in this encounter Care Teams Guest Service Supervisor Relationship Specialty Start Date End Date Cuba Larsen MD PCP - General Family Medicine 01/23/22 Chris Mendes MD Referring Physician Cardiology 12/23/21 Keli Orozco, genetic technologist Failure Coordinator Transplant 04/15/23 Tami Mcknight, genetic technologist Failure Coordinator Cardiology 09/14/23 documented as of this encounter
--- OUTSIDE RECORDS SUMMARY | 2024-03-25 10:58 | XMS_ITS | Encounter Summary ---
Author Organization [facility] Healthcare Address [address] [place] [address] Care Team Providers Care Sap Mobility Architect Name Role Phone Chris Mendes MD Unavailable [phone] Cuba Larsen MD Primary Care Provider [phone] Keli Orozco RN Unavailable Unavailable Tami Mcknight [...] Expiration Date Visits Re quested Visits Authorized [id number] 1 1 Encounter Details Date Type Department Care Team (Late st Contact Info) Description 12/09/2023 1:50 PM CDT - 12/09/2023 4:15 PM CDT Surgery [facility] Operating Room [address] [place] [address] Homer Villalobos MD [address] [facility] [address] [place] [address] OPEN REDUCTION INTERNAL FIXATION LEFT INTERTROCHANTERIC FEMUR [...] file 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 [facility] Inpatient Discharge Summary This [...] management of your chronic medical issues - [facility] has a primary care clinic that may be able to help if you don't have a primary care doctor - call [phone] to see if they can establish care. [...] in admissions tab [facility] Discharge planning issues Assessment & [...] Hgb stable at 7.7 (7.7), DC to [facility] Treatment Plan: done 12/15 Closed nondisplaced [...] without complications (CMS/HCC) ([facility]) Assessment & Plan Continue DM diet with SSI Holding home glipizide and metformin A1C 6.5 Acquired hypothyroidism Assessment & Plan Continue home levothyroxine Paroxysmal atrial fibrillation (CMS/HCC) ([facility]) Assessment & Plan Holding home eliquis and Carvedilol 12/10 A fib controlled HR 100s, restarting Coreg 12.5 mg PO BID (home dose 50 mg PO BID) CTM 12/11 HR 90s a fib rate controlled, continue Coreg 25 mg PO BID 12/13 remains rate controlled 90s, continue Coreg 25 mg PO BID Follow up scheduled: [facility] 01/31 at 1:20 Operative Procedures Performed: OPEN REDUCTION INTERNAL FIXATION LEFT INTERTROCHANTERIC FEMUR FRACTURE (Left: Lower Extremity) Left Heart Catheterization With Coronary Angiography And With Or Without Left Ventriculogram [id number] Discharge Physical Exam: Discharge Condition: fair Pulse: [...] has been made for you to the [facility] assess your risk of bone disease and fracture. They will contact you to schedule an appointment;if you prefer to call them to schedule please call [phone]. For Follow Up Call [facility] at [phone] Follow up Future Appointments Date Time Provider Department Center 01/05/2024 11:45 AM Cuba Larsen MD [facility] 01/18/2024 2:15 PM Homer Villalobos MD [...] Mitchel Obey, MD Department of Orthopaedic Surgery ([facility]) MOST COMMONLY ASKED QUESTIONS & ANSWERS [...] Applications are available for download from the [place] and [place] DMV websites or from your local combination truck driver's license facility. Also, our medical [...] Laws vary state by state; but in [place] and [place] there are no laws prohibiting driving after orthopedic surgery. If you are involved in a car accident, law enforcement will determine your ability to drive on a [id number] basis. Please check your own state laws if driving outside of [place] or [place]. Some insurance companies may have [...] refills between visits, call the staff at [phone] between 8:00 am and 4:00 pm, Thursday [...] please give our office a call at [phone]. Dr. Pearce, Dr. Villalobos, Dr. Vora and Dr. Guanakito Lopez have a team of Medical Assistants and Nurses that can be reached at [phone]. They can help answer questions, address concerns, [...] complication, without long-term current use of insulin ([facility]) ([facility]) One strip daily to check glucose 100 each 1 03/19/2023 blood-glucose meter miscIndications: Type 2 diabetes mellitus without complication, without long-term current use of insulin ([facility]) ([facility] [...] complication, without long-term current use of insulin ([facility]) ([facility] [...] Departure Means Destination Comment s Discharge to [facility] documented in this encounter Progress Notes * Molly Gerber, ARMANI - 12/16/2023 11:53 AM CDT 12/16/23 1149 Discharge Summary Discharge Disposition halfway facility (short term care) Specify Facility [facility] Contact Number [phone]; fax: [phone] Facility Attending Name Yves Bailey Discharge Records Transfer Form Completed Recommended Discharge Level of Care halfway facility (short term care) Actual Discharge Level of Care halfway facility (short term care) Does Actual Level of Care Match Care Team Recommendation? Yes Post Acute Care Plan Home Care Services N/A OP Services N/A DME N/A Post Acute Care Facility Yes Referral Status Accepted Accepted Post Acute Care Location and Contact [facility] [phone] Bajwa is contact Accepted Post Acute Care Discharge Additional Assistance Does the patient need discharge transport arranged? Yes Type of Transportation Ambulance/EMS Has discharge transport been arranged? Yes Details of Transportation [facility] [phone] trip # [id number] D/C Transport Anticipated Date 12/16/23 D/C Transport [...] is TBD. Transportation will be provided by [employer] ([phone]) trip # [id number]. Patient and family are agreeable with the plan. If any further discharge needs arise, please contact the covering business case analyst. * Geovanna Villalta OT - 12/15/2023 12:36 [...] not assigned to this patient, please call [phone]. 12/15/23 1236 General Session Type Treatment OT Received On [...] - Patient will perform [place] [facility] [facility] 12/11/23 12/18/23 -- Problem: OT Misc Start Date: 12/11/23 Goal Start Date Expected End Date End Date OT LTG - Pt will complete standing ADLs and functional transfers with SPV. 12/11/23 01/01/24 -- * Parris Soto NP - 12/15/2023 11:19 AM CDT Images from the original note were not included. [facility] OU Daily Progress Note [...] HFrEF (heart failure with reduced ejection fraction) ([facility]/HCC) (HCC) Hyperlipidemia Hypothyroidism Insomnia Mitral regurgitation Motion sickness NSTEMI (non-ST elevated myocardial infarction) ([facility]/HCC) ([facility]) [...] in admissions tab [facility] Discharge planning issues Assessment & [...] PO Type 2 diabetes mellitus without complications ([facility]/HCC) ([facility]) Assessment & Plan Continue DM diet with SSI Holding home glipizide and metformin A1C 6.5 Acquired hypothyroidism Assessment & Plan Continue home levothyroxine Paroxysmal atrial fibrillation ([facility]) ([facility]) Assessment & Plan Holding home eliquis and Carvedilol 12/10 A fib controlled HR 100s, restarting Coreg 12.5 mg PO BID (home dose 50 mg PO BID) CTM 12/11 HR 90s a fib rate controlled, continue Coreg 25 mg PO BID 12/13 remains rate controlled 90s, continue Coreg 25 mg PO BID Follow up scheduled: [facility] 01/31 at 1:20 Lines/Drains/Tubes: PIV DVT Prophylaxis: Lovenox Diet: Adult Diet Restricted; Consistent Carbohydrate Activity: WBAT GI Prophylaxis: none Code Status: LIMITED - No CPR Total time spent included the following activities caring for this patient: Patient chart review, Reviewing/obtaining history, Examination and evaluation, Counseling/educating patient/family/caregiver, Ordering medications/tests/procedures, Referring & communicating with other health critical care cns, Documenting clinical information in the health record, [...] treatment team and contact the PT or USER SUPPORT ANALYST SUPERVISOR currently assigned to this patient. If a physical therapy clinician is not assigned to this patient, please call [phone]. 12/15/23 1008 PT Last Visit Session Type [...] [facility] Sleep apnea Zenker's diverticulum Past Surgical History: [...] < > 0.63 0.63 < > 0.63 [id number] mL/min/1.73 m2 89 < > 89 89 [...] 1151 12/14/23 0816 12/14/23 0312 12/13/23 2329 12/13/23 2100 12/13/23201512/13/23 1615 GLUCOSE mg/dL -- -- -- -- [...] of Weight Used for Estimated Protein : [place] Dietary Orders (From admission, onward) Start Ordered 12/14/23 1316 Adult Diet Restricted; Consistent Carbohydrate Diet effective now Comments: Skim milk with meals Question Answer Comment ([facility]) Diet type Restricted Diabetic: Consistent Carbohydrate 12/14/23 1319 12/10/23 1700 Oral Nutrition Supplements ([facility]) Select Supplement: Ensure Plus - Chocolate All Meals Question: ([facility]) Select Supplement: Answer: Ensure Plus - Chocolate [...] it discontinued and skim milk added. NIKKI (ASPMARYLOU) MALNUTRITION ASSESSMENT: Date of completion: 12/14/23 NUTRITION [...] intake, Stool patterns Ehsan Mallory RD LD [phone]. Weekends [phone] * Geovanna Villalta, OT - 12/14/2023 9:18 [...] not assigned to this patient, please call [phone]. 12/14/23 0918 General Session Type Treatment OT [...] - Patient will perform toilet transfer [place] [facility] [place] [facility] 12/11/23 12/18/23 -- Problem: OT Misc Start Date: 12/11/23 Goal Start Date Expected End Date End Date OT LTG - Pt will complete standing ADLs and functional transfers with SPV. 12/11/23 01/01/24 -- * Parris Soto NP - 12/14/2023 9:14 AM CDT Images from the original note were not included. [facility] OU Daily Progress Note [...] Parris Soto NP, 500 mg at 12/14/23 08 carvediloL (COREG) tablet 25 mg, 25 mg, oral, BID with meals (bkfst, dinner), Parris Soto NP, 25 mg at 12/14/23 0817 cholecalciferol (VITAMIN D-3) capsule 1,000 Units, 1,000 Units, oral, Daily, Parris Soto NP, 1,000 Units at 12/14/23 08 dextrose gel in packet 15 g, 15 g, oral, Q15 Min PRN OR dextrose (D10W) 10% bolus 250 mL, 250 mL, intravenous, Q15 Min PRN, SinkEmy NP enoxaparin (LOVENOX) syringe 30 mg, 30 mg, subcutaneous, Q12H MISHA, SinkEmy NP, 30 mg at 12/14/23 08 FLUoxetine (PROzac) capsule 20 mg, 20 mg, oral, Daily, SinkEmy NP, 20 mg at 12/14/23 08 glucagon injection 1 mg, 1 mg, intramuscular, Q30 Min PRN, SinkEmy NP insulin lispro (HumaLOG, ADMELOG) 100 unit/mL injection 0-10 Units, 0-10 Units, subcutaneous, Q4H MISHA, SinkEmy NP, 4 Units at 12/14/23 0818 levothyroxine (SYNTHROID) tablet 50 mcg, 50 mcg, oral, Daily, JanelNoel MD, 50 mcg at 12/14/23 08 lidocaine (ASPERCREME) 4 % patch 1 patch, 1 patch, transdermal, Q24H, Sukhjinder Cao MD, 1patch at 12/13/23 181 magnesium citrate oral solution 296 mL, 296 [...] HFrEF (heart failure with reduced ejection fraction) ([facility]/HCC) (HCC) Hyperlipidemia Hypothyroidism Insomnia Mitral regurgitation Motion sickness NSTEMI (non-ST elevated myocardial infarction) ([facility]/HCC) (HCC) Obesity AYAD on CPAP Patellar sleeve [...] in admissions tab [facility] Discharge planning issues Assessment & Plan 12/08 OR with orthopedics 12/09 code stroke this morning followed by ACT secondary to hypotension. Patient transferred to OU for closer observation 12/10 bedside ECHO 12/11 Hyperkalemia protocol 12/12 required 1u PRBC 12/13 improved, likely ready for discharge tomorrow Closed nondisplaced intertrochanteric fracture of left femur (CMS/HCC) ([facility]) Assessment & Plan - ortho consult - [...] without complications (CMS/HCC) ([facility]) Assessment & Plan Continue DM diet with SSI Holding home glipizide and metformin A1C 6.5 Acquired hypothyroidism Assessment & Plan Continue home levothyroxine Paroxysmal atrial fibrillation (CMS/HCC) ([facility]) Assessment & Plan Holding home eliquis and Carvedilol 12/10 A fib controlled HR 100s, restarting Coreg 12.5 mg PO BID (home dose 50 mg PO BID) CTM 12/11 HR 90s a fib rate controlled, continue Coreg 25 mg PO BID 12/13 remains rate controlled 90s, continue Coreg 25 mg PO BID Follow up scheduled: [facility] 01/31 at 1:20 Lines/Drains/Tubes: PIV x2, Lucio- removed Void check DVT Prophylaxis: Lovenox Diet: Adult Diet Restricted; Consistent Carbohydrate Activity: WBAT GI Prophylaxis: none Code Status: LIMITED - No CPR Total time spent included the following activities caring for this patient: Patient chart review, Reviewing/obtaining history, Examination and evaluation, Counseling/educating patient/family/caregiver, Ordering medications/tests/procedures, Referring & communicating with other health critical care cns, Documenting clinical information in the health record, Independent interpretation of results, and Care coordination 45 minutes All care plans discussed with rounding/operative attending: MD Parris Engel NP Cosigned by Abhijit Allen DO at 12/14/2023 1:25 PM CDT * Parris Soto NP - 12/13/2023 4:51 PM CDT Images from the original note were not included. [facility] Floor Daily Progress Note [...] BID, Parris Soto NP, 500 mg at 12/13/23 08 carvediloL (COREG) tablet 25 mg, 25 mg, oral, BID with meals (bkfst, dinner), Parris Soto NP, 25 mg at 12/13/23 08 cholecalciferol (VITAMIN D-3) capsule 1,000 Units, 1,000 Units, oral, Daily, Parris Soto NP, 1,000 Units at 12/13/23826 dextrose gel in packet 15 g, 15 g, oral, Q15 Min PRN OR dextrose (D10W) 10% bolus 250 mL, 250 mL, intravenous, Q15 Min PRN, Sink, Emy Dorado NP enoxaparin (LOVENOX) syringe 30 [...] in admissions tab [facility] Discharge planning issues Assessment & Plan 12/08 OR with orthopedics 12/09 code stroke this morning followed by ACT secondary to hypotension. Patient transferred to OU for closer observation 12/10 bedside ECHO Closed nondisplaced intertrochanteric fracture of left femur (CMS/HCC) ([facility]) Assessment & Plan - ortho consult - [...] without complications (CMS/HCC) ([facility]) Assessment & Plan Continue DM diet with SSI Holding home glipizide and metformin A1C 6.5 Acquired hypothyroidism Assessment & Plan Continue home levothyroxine Paroxysmal atrial fibrillation (CMS/[facility]) ([facility]) Assessment & Plan Holding home eliquis and Carvedilol 12/10 A fib controlled HR 100s, restarting Coreg 12.5 mg PO BID (home dose 50 mg PO BID) CTM Follow up scheduled: [facility] 01/31 at 1:20 Lines/Drains/Tubes: PIV x2, Lucio DVT Prophylaxis: Lovenox Diet: Adult Diet Restricted; Consistent Carbohydrate Activity: WBAT GI Prophylaxis: none Code Status: LIMITED - No CPR Total time spent included the following activities caring for this patient: Patient chart review, Reviewing/obtaining history, Examination and evaluation, Counseling/educating patient/family/caregiver, Ordering medications/tests/procedures, Referring & communicating with other health critical care cns, Documenting clinical information in the health record, Independent interpretation of results, Care coordination, and Complex wound care 30 minutes All care plans discussed with rounding/operative attending: MD Parris Engel NP Cosigned by Kevin Corrigan MD at 12/13/2023 6:05 PM CDT * Parris Soto NP - 12/12/2023 1:30 PM CDT Images from the original note were not included. [facility] OU Daily Progress Note [...] Sink, Emy Dorado NP, 2 Units at 12/12/23 1232 levothyroxine [...] 0727 12/12/23 0406 12/11/23 23412/11/23 2147 12/10/23 23412/10/23 2137 SODIUM mmol/L -- -- -- -- [...] in admissions tab [facility] Discharge planning issues Assessment & Plan 12/08 OR with orthopedics 12/09 code stroke this morning followed by ACT secondary to hypotension. Patient transferred to OU for closer observation 12/10 bedside ECHO Closed nondisplaced intertrochanteric fracture of left femur ([facility]) ([facility]) Assessment & Plan - ortho consult - [...] BID Type 2 diabetes mellitus without complications ([facility]) ([facility]) Assessment & Plan Continue DM diet with SSI Holding home glipizide and metformin A1C 6.5 Acquired hypothyroidism Assessment & Plan Continue home levothyroxine Paroxysmal atrial fibrillation ([facility]) ([facility]) Assessment & Plan Holding home eliquis and Carvedilol 12/10 A fib controlled HR 100s, restarting Coreg 12.5 mg PO BID (home dose 50 mg PO BID) CTM Follow up scheduled: [facility] 01/31 at 1:20 Lines/Drains/Tubes: PIV x2, Lucio DVT Prophylaxis: Lovenox Diet: Adult Diet Restricted; Consistent Carbohydrate Activity: WBAT GI Prophylaxis: none Code Status: LIMITED - No CPR Total time spent included the following activities caring for this patient: Patient chart review, Reviewing/obtaining history, Examination and evaluation, Counseling/educating patient/family/caregiver, Ordering medications/tests/procedures, Referring & communicating with other health critical care cns, Documenting clinical information in the health record, [...] treatment team and contact the PT or USER SUPPORT ANALYST SUPERVISOR currently assigned to this patient. If a physical therapy clinician is not assigned to this patient, please call [phone]. 12/12/23 1143 General Chart Reviewed Yes Session [...] Equipment-Currently Using None Prior Function Level of [place] Independent with ADLs;Independent functional transfers;Independent with ambulation Lives With Alone Receives Help From Family;Neighbor (Vascular Technician assist) Fall within the last 6 months [...] with Outstretched Arm While Standing 0 9. Manager Office Services Object from Floor from a Standing Position [...] soiled or have shadowing before that time Sutures/Gordon: Will be removed 3 weeks after surgical [...] on 01/18/[address] Villalobos located at [facility] [address] Please call with questions during daytime. See below for overnight issues. If you know the resident's name on the appropriate orthopaedic surgery team, please use [email or web address] to page resident directly. If questions arise and the appropriate resident can't be reached or you are calling overnight, please contact [phone] ([place]- 7:30 PM - 6:30 AM - Floor Resident) or [phone] (24 hours/day - Consult Resident) Cosigned by Homer Villalobos MD at 12/14/2023 9:03 AM CDT * Maria Luz Hunter - 12/11/2023 12:45 PM CDT [facility] Spiritual Care Note Photographic Editor Maria Luz Hunter Triage: [phone] 12/11/23 1200 Time Spent Start Time 1225 Stop Time 1240 Time Calculation (min) 15 min Patient Spiritual Assessment Spirituality Assessed Yes Scientologist Affiliation [employer] Active in Anabaptist Yes Spiritual Needs Prayer Clinical Encounter Type Visited With Patient and family together Response Type Routine visit Routine Visit Introduction Reason for visit Support Referral From Patient Outcomes and Progress Aligning care with patient's values Achieved Preserve dignity and respect Achieved Demonstrating care and respect Achieved Jina affirmation Achieved Establish rapport and connectedness Achieved Interventions Interventions Prayer;Active listening;Offer emotional support;Offer spiritual/anabaptism support;Explore jina and values Plan Future Plan [...] not assigned to this patient, please call [phone]. 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) Driving Yes Mode of Transportation Car ADL Assistance Independent Instrumental ADL (IADL) Assistance Independent Vocational/Occupation Retired Type of Occupation [employer] Fall within the last 6 months Yes [...] name and address after me Miguel Carrasquillo [address] [place] [address] Without looking at the clock, tell me [...] Complete 5 min Trails A & B ([place] Making Test) Patient completed Trails A in [...] - Patient will perform toilet transfer [place] [facility] [place] [facility] 12/11/23 12/18/23 -- Problem: OT Misc Start Date: 12/11/23 Goal Start Date Expected End Date End Date OT LTG - Pt will complete standing ADLs and functional transfers with SPV. 12/11/23 01/01/24 -- * Parris Soto NP - 12/11/2023 11:35 AM CDT Images from the original note were not included. [facility] OU Daily Progress Note [...] 12/11/23 0840 12/11/23 0344 12/10/23 2344 12/10/23213612/09/23 23512/09/23222312/08/23205112/08/23 1135 SODIUM mmol/L -- -- -- 135 [...] in admissions tab [facility] Discharge planning issues Assessment & Plan 12/08 OR with orthopedics 12/09 code stroke this morning followed by ACT secondary to hypotension. Patient transferred to OU for closer observation 12/10 bedside ECHO Closed nondisplaced intertrochanteric fracture of left femur ([facility]) ([facility]) Assessment & Plan - ortho consult - [...] without complications (CMS/HCC) ([facility]) Assessment & Plan Continue DM diet with SSI Holding home glipizide and metformin A1C 6.5 Acquired hypothyroidism Assessment & Plan Continue home levothyroxine Paroxysmal atrial fibrillation (CMS/HCC) ([facility]) Assessment & Plan Holding home eliquis and Carvedilol 12/10 A fib controlled HR 100s, restarting Coreg 12.5 mg PO BID (home dose 50 mg PO BID) CTM Follow up scheduled: [facility] 01/31 at 1:20 Lines/Drains/Tubes: PIV x2, Lucio DVT Prophylaxis: Lovenox Diet: Adult Diet Restricted; Consistent Carbohydrate Activity: WBAT GI Prophylaxis: none Code Status: LIMITED - No CPR Total time spent included the following activities caring for this patient: Patient chart review, Reviewing/obtaining history, Examination and evaluation, Counseling/educating patient/family/caregiver, Ordering medications/tests/procedures, Referring & communicating with other health critical care cns, Documenting clinical information in the health record, [...] on 01/18/[address]os [address] True Zamudio M.D. Orthopaedic Surgery Resident, PGY-2 [facility] [employer] [facility] For questions please reach out to: [facility] 7:30p-6:30a (Night Floor Resident): [phone] Consult Resident: [phone] Specific Resident: Please use [employer] to page/call appropriate OrthopaedicSurgery Team/Resident Not sure which resident is on for the service? Check the Call Schedule: IRLANDA for [facility] Orthopaedic Surgery (pw: [facility]ail [facility]) For ortho primary adult patients, Thu - Thu 6a-6p: Call [phone] nurses station for PA/GLUE SPREADER ([phone]) For ortho primary pediatric patients, Thu - Thu 6a-6p: Call 10th floor nurses station for GLUE SPREADER Please call with questions during daytime. See below for overnight issues. If you know the resident's name on the appropriate orthopaedic surgery team, please use [employer] to page resident directly. If questions arise and the appropriate resident can't be reached or you are calling overnight, please contact [phone] ([facility] 7:30 PM - 6:30 AM - Floor Resident) or [phone] (24 hours/day - Consult Resident) Cosigned by Homer Villalobos MD at 12/11/2023 9:26 AM CDT * Emy Sanchez NP - 12/10/2023 2:54 PM CDT Images from the original note were not included. 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 [...] consult placed, ARIADNE ordered; patient transferred to for closer observation Objective Medications: Current Facility-Administered [...] mL, 250 mL, intravenous, Q15 Min PRN, Eym Sanchez NP enoxaparin (LOVENOX) syringe 30 mg, 30 mg, subcutaneous, Q12H MISHA, Emy Sanchez NP, 30 mg at 12/10/23 0855 FLUoxetine (PROzac) capsule 20 mg, 20 mg, oral, Daily, SinkEmy NP, 20 mg at 12/10/23 0755 glucagon [...] Motion sickness NSTEMI (non-ST elevated myocardial infarction) ([facility]/HCC) (HCC) Obesity AYAD on CPAP Patellar sleeve fracture of left knee PONV (postoperative nausea and vomiting) Pulmonary embolism ([facility]) Sleep apnea Zenker's diverticulum Surgical History: Past [...] 12/08/23205112/08/23 1135 SODIUM mmol/L -- -- -- -- [...] and updated in admissions tab Home pharmacy [facility] in [facility] Discharge planning issues Assessment & [...] hypotension Type 2 diabetes mellitus without complications ([facility]) ([facility]) Assessment & Plan Continue DM diet with SSI Holding home glipizide and metformin A1C 6.5 Acquired hypothyroidism Assessment & Plan Continue home levothyroxine Paroxysmal atrial fibrillation ([facility]) ([facility]) Assessment & Plan Holding home eliquis FEN: [...] medications/tests/procedures, Referring & communicating with other health critical care cns, Documenting clinical information in the health record, [...] from the original note were not included. [facility] Geriatric Trauma Service Floor Daily Progress Note [...] (premix) 2,000 mg, 2,000 mg, intravenous, Q8H [facility], Mahogany Zamudio MD, 2,000 mg at 12/10/23 0615 dextrose gel in packet 15 g, 15 g, oral, Q15 Min PRN OR dextrose (D10W) 10% bolus 250 mL, 250 mL, intravenous, Q15 Min PRN, Emy Sanchez NP enoxaparin (LOVENOX) syringe 30 mg, 30 mg, subcutaneous, Q12H MISHA, SinkEmy NP FLUoxetine (PROzac) capsule 20 mg, 20 [...] injection 0-10 Units, 0-10 Units, subcutaneous, Q4H [facility], Emy Sanchez NP, 2 Units at [...] 20 mg, 20 mg, oral, Daily, Noel Islsa MD, 20 mg at 755 senna (SENOKOT) tablet 1 tablet, 1 tablet, oral, Daily PRN, Noel Islas MD sodium chloride 0.9% infusion, 75 mL/hr, intravenous, Continuous, Laura, Emy Dorado NP, LastRate: 75 mL/hr at [...] Labs Lab Units 12/10/23 0739 12/10/23 0439 12/09/23234912/09/23222312/08/23205112/08/23 1135 SODIUM mmol/L -- -- -- 140 [...] in admissions tab Home pharmacy [facility] in [facility] Discharge planning issues Assessment & Plan 12/08 OR with orthopedics Closed nondisplaced intertrochanteric fracture of left femur ([facility]) ([facility]) Assessment & Plan - ortho consult - 12/09 OR for ORIF of L intertrochanteric femur fx - WBAT, PT/OT -Bone health referral Resume home anticoagulation at discharge WAI (generalized anxiety disorder) Assessment & Plan Home xanax, continued PRN Essential hypertension Assessment & Plan Continue home Coreg, lasix, cozaar, spironolactone Type 2 diabetes mellitus without complications ([facility]) ([facility]) Assessment & Plan Continue DM diet with SSI Holding home glipizide and metformin A1C 6.5 Acquired hypothyroidism Assessment & Plan Continue home levothyroxine Paroxysmal atrial fibrillation ([facility]) ([facility]) Assessment & Plan Holding home eliquis FEN: [...] medications/tests/procedures, Referring & communicating with other health critical care cns, Documenting clinical information in the health record, [...] residual Procedure(s): 12/09/23: DHS L IT fx [phone] (pt) [phone] (son) Interval History: 12/10/23: NAEO. AFVSS. WBC [...] on 01/18/[address] Villalobos located at [facility] 6A Please call with questions during daytime. See below for overnight issues. If you know the resident's name on the appropriate orthopaedic surgery team, please use [email or web address] to page resident directly. If questions arise and the appropriate resident can't be reached or you are calling overnight, please contact [phone] (Thu- 7:30 PM - 6:30 AM - Floor Resident) or [phone] (24 hours/day - Consult Resident) * Cuba [...] soiled or have shadowing before that time Sutures/Gordon: Will be removed 3 weeks after surgical [...] on 01/18/[address] Villalobos located at [facility] Cuba Humphrey MD Clinical Fellow Orthopedic Trauma Service [facility] Orthopedics Dictated using Fluency Direct Software. Manager Hair variances may occur. * Daniela Brady MSW - 12/09/2023 12:00 PM CDT Trauma Services rounding completed by RN Coordinator Kevin Mckeon on this date. Pt provided withTrauma Services booklet, TSN information, and fall prevention handout. RICH García, MPH, [facility] Trauma Survivors Cloth Bleaching Range Tender [facility] Trauma Services (c) [phone] * Emy Sanchez NP - 12/09/2023 11:41 AM CDT Images from the original note were not included. [facility] Geriatric Trauma Service Floor Daily Progress Note [...] Q15 Min PRN, Laura, Emy Dorado NP [Held by Provider] enoxaparin (LOVENOX) syringe [...] 0-10 Units, subcutaneous, Q4H MISHA, Emy Sanchez NP labetaloL (NORMODYNE,TRANDATE) injection 10 [...] Noel Islas MD, 50 mg at 12/09/23 0827 Past Medical: Past Medical History: Diagnosis Date Adrenal nodule (HCC) Anxiety Aortic stenosis, moderate Cardiomyopathy (HCC) Diabetes mellitus (HCC) GERD (gastroesophageal reflux disease) Heart murmur HFrEF (heart failure with reduced ejection fraction) ([facility]/HCC) (HCC) Hyperlipidemia Hypothyroidism Insomnia Mitral regurgitation Motion sickness NSTEMI (non-ST elevated myocardial infarction) ([facility]/HCC) (HCC) Obesity AYAD on CPAP Patellar sleeve [...] and updated in admissions tab Home pharmacy [facility] in [facility] Discharge planning issues Assessment & Plan 12/08 OR with orthopedics Closed nondisplaced intertrochanteric fracture of left femur ([facility]/HCC) ([facility]) Assessment & Plan - ortho consult - [...] without complications (CMS/HCC) ([facility]) Assessment & Plan Continue DM diet with SSI Holding home glipizide and metformin A1C pending Acquired hypothyroidism Assessment & Plan Continue home levothyroxine Paroxysmal atrial fibrillation ([facility]) ([facility]) Assessment & Plan Holding home eliquis FEN: [...] medications/tests/procedures, Referring & communicating with other health critical care cns, Documenting clinical information in the health record, [...] sided residual Procedure(s): DHS L IT fx [phone] (pt) [phone] (son) Interval History: 12/09/23: AFVSS. WBC 6.5, [...] neg Lab/Diagnostic Review: Recent Labs Lab Units 12/09/23234912/08/23205112/08/23 1135 SODIUM mmol/L -- -- 137 POTASSIUM [...] Zamudio M.D (Madeline). Orthopaedic Surgery Resident, PGY-2 [facility] For questions please reach out to: Sun-Thur 7:30p-6:30a (Night Floor Resident): [phone] Consult Resident: [phone] Specific Resident: Please use [employer] ([employer]) to page/call appropriate OrthopaedicSurgery Team/Resident Not sure which resident is on for the service? Check the Call Schedule: AMIISHA for [facility] Orthopaedic Surgery (pw: [facility]) For ortho primary adult patients, Thu - Thu 6a-6p: Call [phone] nurses station for PA/GLUE SPREADER ([phone]) For ortho primary pediatric patients, Thu - Thu 6a-6p: Call 10th floor nurses station for GLUE SPREADER Please call with questions during daytime. See below for overnight issues. If you know the resident's name on the appropriate orthopaedic surgery team, please use [employer] to page resident directly. If questions arise and the appropriate resident can't be reached or you are calling overnight, please contact [phone] ([facility] 7:30 PM - 6:30 AM - Floor Resident) or [phone] (24 hours/day - Consult Resident) Cosigned by Homer Villalobos MD at 12/09/2023 10:54 AM CDT * Alia Ibarra MD - 12/08/2023 10:50 PM CDT Images from the original note were not included. [facility] Geriatric Trauma ED Transfer Accept Note Prema [...] left femur (CMS/HCC) ([facility]) Assessment & Plan - ortho consult - [...] L intertrochanteric femur fx Requesting Provider: [facility] Dx: L intertrochanteric femur fx Injury Mechanism: fall going up a step OI: None PMHx: L DFR s/p distal femur fx (2019), Afib on eliquis, PE, HTN, HLD, T2DM, CHF, CVA with right sided residual Plan: PENDING IMN+ORIF of L intertrochanteric femur fx Procedure(s): PENDING IMN+ORIF of L intertrochanteric femur fx [phone] (pt) [phone] (son) HPI: 83 y.o. right hand dominant [...] Consult was/will be staffed with senior/attending/resident team electrification adviser who agrees w plan. Follow-up will be arranged by the orthopaedic team. Will plan for follow-up at [facility] (call [phone] to make an appointment) or [facility] (call [phone] to make an appointment) pending hospital/ ED course. Giacomo Carrizales M.D. Orthopaedic Surgery Resident, PGY-1 [facility] For questions please reach out to: Keyla 7:30p-6:30a (Night Floor Resident): [phone] Consult Resident: [phone] Specific Resident: Please use [employer] ([email or web address] App) to page/call appropriate OrthopaedicSurgery Team/Resident Not sure which resident is on for the service? Check the Call Schedule: IRLANDA for [facility] Orthopaedic Surgery (pw: [facility]) For ortho primary adult patients, Thu - Thu 6a-6p: Call [phone] nurses station for PA/GLUE SPREADER ([phone]) For ortho primary pediatric patients, Thu - Thu 6a-6p: Call 10th floor nurses station for GLUE SPREADER Cosigned by Homer Villalobos MD at 12/08/2023 7:09 PM CDT documented in this encounter Consult Notes * Emile Wallace MD - 12/10/2023 2:41 PM CDTAssociated Order(s): IP CONSULT TO CARDIOLOGY Cardiology Consult Note - General Cardiology Patient Name: Perma Pearce : 1940 Date of Service: 12/10/23 [...] a past medical history of Adrenal nodule ([facility]), Anxiety, Aortic stenosis, moderate, Cardiomyopathy (HCC), Diabetes mellitus (HCC), GERD (gastroesophageal reflux disease), Heart murmur, HFrEF (heart failure with reduced ejection fraction) (CMS/HCC) (HCC), Hyperlipidemia, Hypothyroidism, Ins omnia, Mitral regurgitation, Motion sickness, NSTEMI (non-ST elevated myocardial infarction) (CMS/HCC) ([facility]), Obesity, AYAD on CPAP, Patellar sleeve fracture of left knee, PONV (postoperative nausea and vomiting), Pulmonary embolism ([facility]), Sleep apnea, and Zenker's diverticulum. PSHX: has [...] glucose diagnostic (glucose blood) strip blood-glucose meter [facility] CALCIUM CARBONATE ORAL carvediloL (COREG) 25 mg tablet cholecalciferol (VITAMIN D-3) 2000 unit tablet FLUoxetine (PROzac) 20 mg capsule furosemide (LASIX) 40 mg tablet glipiZIDE (GLUCOTROL) 10 mg tablet lancets [facility] levothyroxine (SYNTHROID) 50 mcg tablet losartan (COZAAR) [...] and systolic function - Recommend consultation with cad detailer given recent life stressors We appreciate the ability to be involved in this patient's care. If after 5PM or on weekends, please page the materials director electrification adviser with any questions or concerns. Emile Wallace [...] to pain medications. Recommendations - NPO until SHIP WASHER eval - Increase neurochecks to q4h - [...] Normal, no sensory loss Best Language (9.): Qgpe-of-rmjmrxje aphasia Dysarthria (10.): Normal Extinction and Inattention [...] or mechanical thrombectomy Recommendations - NPO until SHIP WASHER eval - Increase neurochecks to q4h - [...] follow up tomorrow with patient and contact [facility] for completing DPOA. The services provided in this conversation and described in this note are non- billable and to be used for ongoing clinical care only. RICH Cabrera * Noel Islas MD - 12/08/2023 6:51 PM CDTAssociated Order(s): Consult to Trauma Surgery [facility] Team A Trauma Surgery History and Physical [...] Disposition of Patient: Admit to trauma service-Floor [facility] Trauma Surgery December 08, 2023 6:52 [...] L intertrochanteric femur fx Requesting Provider: [facility] Dx: L intertrochanteric femur fx Injury Mechanism: fall going up a step OI: None PMHx: L DFR s/p distal femur fx (2019), Afib on eliquis, PE, HTN, HLD, T2DM, CHF, CVA with right sided residual Plan: PENDING IMN+ORIF of L intertrochanteric femur fx Procedure(s): PENDING IMN+ORIF of L intertrochanteric femur fx [phone] (pt) [phone] (son) HPI: 83 y.o. right hand dominant [...] 03/19/23 03/18/24 Cuba Larsen MD blood-glucose meter mis Use daily or as [...] Consult was/will be staffed with senior/attending/resident team electrification adviser who agrees w plan. Follow-up will be arranged by the orthopaedic team. [facility] (call [phone] to make an appointment) or [facility] (call [phone] to make an appointment) pending hospital/ ED course. Giacomo Carrizales M.D. Orthopaedic Surgery Resident, PGY-1 [facility] For questions please reach out to: Keyla 7:30p-6:30a (Night Floor Resident): [phone] Consult Resident: [phone] Specific Resident: Please use [employer] ([email or web address]) to page/call appropriate OrthopaedicSurgery Team/Resident Not sure which resident is on for the service? Check the Call Schedule: IRLANDA for [facility] Orthopaedic Surgery (pw: [facility]) For ortho primary adult patients, Thu - Thu 6a-6p: Call [phone] nurses station for PA/GLUE SPREADER ([phone]) For ortho primary pediatric patients, Thu 6a-6p: Call 10th floor nurses station for GLUE SPREADER Cosigned by Homer Villalobos MD at 12/08/2023 7:09 PM CDT documented in this encounter Nursing Notes * Tiara Mondragon RN - 12/10/2023 3:15 PM CDT [place] admitted to [address] from 6400 at 1515. Two nurses teamed [...] left femoral neck ([facility]) 12/08/2023 Closed nondisplaced intertrochanteric fracture of left femur ([facility]) ([facility]) 12/08/2023 Hyperlipidemia 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 ([facility]) ([facility]) 10/11/2021 Essential tremor History of nephrolithiasis 03/21/2021 Pica in adults 08/21/2020 Thyroid nodule 08/21/2020 Moderate episode of recurrent major depressive disorder ([facility]) 08/21/2020 AYAD on CPAP 08/21/2020 Gastro-esophageal reflux disease without esophagitis 06/05/2019 WAI (generalized anxiety disorder) 06/05/2019 Slow transit constipation 06/05/2019 Acquired hypothyroidism 05/31/2019 Type 2 diabetes mellitus without complications ([facility]) ([facility]) 05/31/2019 Essential hypertension 05/31/2019 Presence of left artificial knee joint 05/25/2019 Paroxysmal atrial fibrillation ([facility]) ([facility]) 08/18/2017 Past Medical History: Diagnosis Date Adrenal nodule ([facility]) Anxiety Aortic stenosis, moderate Cardiomyopathy ([facility]) Diabetes mellitus ([facility]) GERD (gastroesophageal reflux disease) Heart murmur HFrEF (heart failure with reduced ejection fraction) ([facility]) ([facility]) Hyperlipidemia Hypothyroidism Insomnia Mitral regurgitation NSTEMI (non-ST elevated myocardial infarction) ([facility]) ([facility]) Obesity AYAD on CPAP Patellar sleeve fracture of left knee PONV (postoperative nausea and vomiting) Pulmonary embolism ([facility]) Sleep apnea Zenker's diverticulum Past Surgical History: [...] attending-Cecile. 83 female history of AYAD, hypertension, MD ED, AFib. Mechanical fall walking on grass [...] Ortho. By: Dick Nova MD Time: 12/07 1904 Comment: Pt reevaluated after signout. Found resting comfortably in bed, states pain is controlled,denies any complaints. Pending ortho recs By: Whitney Lovelace MD Time: 12/08 1707 Comment: Ortho consulted anesthesia. Recommend against fascia [...] RN - 12/08/2023 11:19 AM CDT Bed: [facility] Expected date: Expected time: Means of [...] Support System Family members (Elio Culp (Son) [phone]) Anticipated discharge level of care halfway facility (short term care) Does the patient need discharge transport arranged? 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 let VM x 2for Aydee in admissions [phone] to check bed availability, accepting information - awaitingcall back as of this time. Discharge Barriers: pending bed availability, insurance authorization Education Needs Identified (plan):TBD F/U Appointments: to be scheduled prior to discharge Addendum as of 1307 - CM left another VM for borough coordinator Aydee [phone] - awaiting call back as of this time Addendum as of 1413 - CM received information from Aydee in admissions - [facility] , MD Yves Bailey . Insurance auth pending Patient's Identified Problem/Goal Problem:?Ensure acute medical needs are met and that patient has a safe discharge plan. Goal:?Secure a discharge plan that patient/family are agreeable with?and ensure patient has continuum of care. Patient and/or family are agreeable with plan. credit collections manager will continue to follow and assist with discharge planning as needed. If any further discharge needs arise, please contact the covering business case analyst. * Assessment & Plan Note - Parris [...] severity. Vitamin and Mineral Nutrition Information System. [place], World Health Organization, 2010 (WHO/NMH/NHD/MNM/11.1) http://www.who.int/vmnis/indicators/haemoglobin.pdf https://acphospitalist.org/archives//coding.htm https://acphospitalist.org/archives//jkkhhc-ypfbb-mqxn-anemia.htmhttps:// acphospitalist.org/archives//ukffji-woluu-xrvw-anemia.htm From the ICD-10-CM Coding Guidelines, use of terms such as likely, suspected, possible, or probable(associated with a specific diagnosis that is being evaluated, monitored, or treated as if it exists) are acceptable and can be coded in the inpatient setting when documented at the time of discharge. This documentation will become part of the patient???s medical record. Jennifer Mcnulty RN, CCDS Clinical Documentation Apparel Pattern Maker [phone] [email or web address] * Provider Query - Emy Sanchez NP [...] record. Jennifer Mcnulty RN, CCDS Clinical Documentation Apparel Pattern Maker [phone] [email or web address] * Plan of Care - Dariana Washington RN - 12/14/2023 1:20 PM CDT Goals: Clinical Goals for the Shift: Monitor VS, monitor I&Os, pain management, Q2 turns, out of bed to chair Graphic Engineer Patient Centered Goal for Treatment: discharge Problem: [...] Support System Family members (Elio Culp (Son) [phone]) Anticipated discharge level of care halfway facility (short term care) Does the patient [...] left displaced IT fracture ADD: 12/14 Referrals: Quahogger noted patient has been recommended for Inpatient Rehab by PT/OT. Quahogger met with the patient/family at bedside to discuss recommendations by therapy and to work on a potential discharge disposition plan, patient/family interested in SNF placement as of this time. credit collections manager provided a list of SNF choices to patient and family. Patient and family selected the following choices (preference order): [facility], [place], [facility], [facility], [facility] Electronic referrals sent out via [facility]. [...] Patient and/or family are agreeable with plan. credit collections manager will continue to follow and assist with discharge planning as needed. If any further discharge needs arise, please contact the covering business case analyst. * [facility] Note - Ingrid Win RN [...] Recent Administrations ondansetron (ZOFRAN) injection 4 mg [[id number]] Ordering Provider: Andre Willson MD Status: Dispensed (Past End Date/Time) Ordered On: 12/08/23 1131 Starts/Ends: 12/08/23 1132 - 12/09/23 1132 Ordered Dose (Remaining/Total): 4 mg (1/1) Route: intravenous Frequency: Once Ordered Rate/Order Duration: -- / 2 Minutes (No admins scheduled or recorded for this medication) ketamine (KETALAR) injection 10 mg [[id number]] Ordering Provider: Steve Huber MD Status: Completed [...] Performed by: Юлия Gale RN Scanned Package: [id number] fentaNYL (SUBLIMAZE) preservative free injection 50 mcg [[id number]] Ordering Provider: Steve Huber MD Status: Completed [...] Performed by: Priscilla Avalos RN Scanned Package: [id number] HYDROmorphone (DILAUDID) injection 0.5 mg [[id number]] Ordering Provider: Dick Nova MD Status: Completed [...] Performed by: Юлия Gale RN Scanned Package: [id number] lidocaine (ASPERCREME) 4 % patch 1 patch [[id number]] Ordering Provider: Sukhjinder Cao MD Status: Dispensed [...] Performed by: Anh Savage RN Scanned Package: [id number] ALPRAZolam (XANAX) tablet 0.5 mg [[id number]] Ordering Provider: Noel Islas MD Status: Dispensed Ordered On: 12/08/232249 Start: 12/08/232249 Ordered Dose (Remaining/Total): 0.5 mg (--/--) Route: oral Frequency: 2 times daily PRN Ordered Rate/Order Duration: -- / -- Timestamps Action Dose Route Other Information 12/13/232048 Given 0.5 mg oral Performed by: Alfredo Lind RN Scanned Package: [id number] FLUoxetine (PROzac) capsule 20 mg [[id number]] Ordering Provider: Emy Sanchez NP Status: Dispensed Ordered On: 12/08/232249 Start: 12/09/23899 Ordered Dose (Remaining/Total): 20 mg (--/--) Route: oral Frequency: Daily Ordered Rate/Order Duration: -- / -- Timestamps Action Dose Route Other Information 12/14/23816 Given 20 mg oral Performed by: Dariana Washington RN Scanned Package: 62418-676-14, 99054-432-75 levothyroxine (SYNTHROID) tablet 50 mcg [[id number]] Ordering Provider: Noel Islas MD Status: Dispensed [...] Performed by: Dariana Washington RN Scanned Package: 23431-657-82 rosuvastatin (CRESTOR) tablet 20 mg [[id number]] Ordering Provider: Noel Islas MD Status: Dispensed Ordered On: 12/08/232249 Start: 12/09/23899 Ordered Dose (Remaining/Total): 20 mg (--/--) Route: oral Frequency: Daily Ordered Rate/Order Duration: -- / -- Timestamps Action Dose Route Other Information 12/14/23 0817 Given 20 mg oral Performed by: Dariana Washington RN Scanned Package: 58282-458-59 acetaminophen (TYLENOL) tablet 1,000 mg [[id number]] Ordering Provider: Noel Islas MD Status: Dispensed Ordered On: 12/08/232249 Start: 12/08/232329 Ordered Dose (Remaining/Total): 1,000 mg (--/--) Route: oral Frequency: Every 6 hours Ordered Rate/Order Duration: -- / -- Timestamps Action Dose Route Other Information 12/14/23 1154 Given 1,000 mg oral Performed by: Dariana Washington RN Scanned Package: [id number], [id number] oxyCODONE (ROXICODONE) tablet 5 mg [[id number]] Ordering Provider: Noel Islas MD Status: Dispensed Ordered On: 12/08/232249 Start: 12/08/232249 Ordered Dose (Remaining/Total): 5 mg (--/--) Route: oral Frequency: Every 4 hours PRN Ordered Rate/Order Duration: -- / -- Timestamps Action Dose Route Other Information 12/14/23 0608 Given 5 mg oral Performed by: Alfredo Lind RN Scanned Package: [id number] polyethylene glycol (MIRALAX) packet 17 g [[id number]] Ordering Provider: Noel Islas MD Status: Dispensed Ordered On: 12/08/232249 Start: 12/09/23899 Ordered Dose (Remaining/Total): 17 g (--/--) Route: oral Frequency: Daily Ordered Rate/Order Duration: -- / -- Timestamps Action Dose Route Other Information 12/14/23 0818 Given 17 g oral Performed by: Dariana Washington RN Scanned Package: [id number] senna (SENOKOT) tablet 1 tablet [[id number]] Ordering Provider: Noel Islas MD Status: Dispensed Ordered On: 12/08/232249 Start: 12/08/232249 Ordered Dose (Remaining/Total): 1 tablet (--/--) Route: oral Frequency: Daily PRN Ordered Rate/Order Duration: -- / -- Timestamps Action Dose Route Other Information 12/14/23824 Given 1 tablet oral Performed by: Dariana Washington RN Scanned Package: [id number] dextrose gel in packet 15 g [[id number]] Ordering Provider: Emy Sanchez NP Status: Verified [...] medication) dextrose (D10W) 10% bolus 250 mL [[id number]] Ordering Provider: Emy Sanchez NP Status: Verified [...] hour post treatment. If BG is less vzre037 mg/dL, repeat Q15 minute BG checks and treatment. Call MD for each episode of hypoglycemia. (No admins scheduled or recorded for this medication) glucagon injection 1 mg [[id number]] Ordering Provider: Emy Sanchez NP Status: Verified [...] (HumaLOG, ADMELOG) 100 unit/mL injection 0-10 Units [[id number]] Ordering Provider: Emy Sanchez NP Status: Dispensed [...] Performed by: Dariana Washington RN Scanned Package: [id number] ketorolac (TORADOL) 30 mg/mL injection 15 mg [[id number]] Ordering Provider: Jermaine Sanchez MD Status: Completed (Past End Date/Time) Ordered On: 12/09/231948 Starts/Ends: 12/09/232029 - 12/09/231955 Ordered Dose (Remaining/Total): 15 mg (0/1) Route: intravenous Frequency: Once Ordered Rate/Order Duration: -- / -- Admin Instructions: For Adult IV push, administer over 15 seconds Timestamps Action Dose Route Other Information 12/09/231955 Given 15 mg intravenous Performed by: Mahogany France RN Scanned Package: [id number] magnesium sulfate 4 g/100 mL in water (premix) 4 g [[id number]] Ordering Provider: Alia Ibarra MD Status: Completed [...] Performed by: Jazmyn Santos RN Scanned Package: 35168-794-18 enoxaparin (LOVENOX) syringe 30 mg [[id number]] Ordering Provider: Emy Sanchez NP Status: Dispensed Ordered On: 12/10/23 0844 Start: 12/10/23 0915 Ordered Dose (Remaining/Total): 30 mg (--/--) Route: subcutaneous Frequency: Every 12 hours scheduled Ordered Rate/Order Duration: -- / -- Timestamps Action Dose Route / Site Other Information 12/14/23 0817 Given 30 mg subcutaneous Left Upper Abdomen Performed by: Dariana Washington RN Scanned Package: 09967-310-31 sodium chloride 0.9% bolus 1,000 mL [[id number]] Ordering Provider: Emy Sanchez NP Status: Completed (Past End Date/Time) Ordered On: 12/10/23 1203 Starts/Ends: 12/10/23 1245 - 12/10/23 1210 Ordered Dose (Remaining/Total): 1,000 mL (0/1) Route: intravenous Frequency: Once Ordered Rate/Order Duration: -- / -- Timestamps Action Dose Route Other Information 12/10/23 1210 New Bag 1,000 mL intravenous Performed by: Daniela Arshad RN sodium chloride 0.9% IVPB 0-250 mL [[id number]] Ordering Provider: Emy Sanchez NP Status: Completed [...] Performed by: Daniela Arshad RN Scanned Package: 5668-0166-26 methocarbamoL (ROBAXIN) tablet 500 mg [[id number]] Ordering Provider: Quita Abarca MD Status: Completed (Past End Date/Time) Ordered On: 12/10/231916 Starts/Ends: 12/10/231999 - 12/10/232123 Ordered Dose (Remaining/Total): 500 mg (0/1) Route: oral Frequency: Once Ordered Rate/Order Duration: -- / -- Timestamps Action Dose Route Other Information 12/10/232123 Given 500 mg oral Performed by: Carolyn Sullivan RN Comments: pt request Scanned Package: [id number] sodium chloride 0.9% bolus 500 mL [[id number]] Ordering Provider: Alia Ibarra MD Status: Completed (Past End Date/Time) Ordered On: 12/10/231937 Starts/Ends: 12/10/232014 - 12/10/232044 Ordered Dose (Remaining/Total): 500 mL (0/1) Route: intravenous Frequency: Once Ordered Rate/Order Duration: 500 mL/hr / 1 Hours Timestamps Action Dose / Rate / Duration Route Other Information 12/10/231944 New Bag 500 mL 250 mL/hr 1 Hours intravenous Performed by: Carolyn Sullivan RN Scanned Package: 4433-5530-17 ondansetron (ZOFRAN) injection 4 mg [[id number]] Ordering Provider: Alia Ibarra MD Status: Dispensed [...] Performed by: Alfredo Lind RN Scanned Package: 54933-543-71 perflutren protein-a (OPTISON) 3 mL in sodium chloride 0.9% 8 mL syringe [[id number]] Ordering Provider: Kevin Corrigan MD Status: Verified Ordered On: 12/11/23738 Start: 12/11/23738 Ordered Dose (Remaining/Total): 1-8 mL (1/1) Route: intravenous Frequency: Once in imaging Ordered Rate/Order Duration: -- / -- (No admins scheduled or recorded for this medication) perflutren protein-a (OPTISON) 3 mL in sodium chloride 0.9% 8 mL syringe [[id number]] Ordering Provider: Kevin Corrigan MD Status: Completed [...] in sodium chloride 0.9% 10 mL syringe [[id number]] Ordering Provider: Kevin Corrigan MD Status: Verified Ordered On: 12/11/23748 Start: 12/11/23 0749 Ordered Dose (Remaining/Total): 1-10 mL (1/1) Route: intravenous Frequency: Once in imaging Ordered Rate/Order Duration: -- / -- (No admins scheduled or recorded for this medication) cholecalciferol (VITAMIN D-3) capsule 1,000 Units [[id number]] Ordering Provider: Parris Soto NP Status: Dispensed Ordered On: 12/11/23 1152 Start: 12/11/23 1230 Ordered Dose (Remaining/Total): 1,000 Units (--/--) Route: oral Frequency: Daily Ordered Rate/Order Duration: -- / -- Admin Instructions: Each capsule contains 1,000 units (25 mcg) of cholecalciferol. Timestamps Action Dose Route Other Information 12/14/23 0817 Given 1,000 Units oral Performed by: Dariana Washington RN Scanned Package: [id number] dextrose (D10W) 10% bolus 500 mL [[id number]] Ordering Provider: Parris Soto NP Status: Completed (Past End Date/Time) Ordered On: 12/12/23648 Starts/Ends: 12/12/23729 - 12/12/23 1126 Ordered Dose [...] Signoff by: Eneida Kaiser RN Scanned Package: [id number] insulin regular (HumuLIN R, NovoLIN R) 100 unit/mL injection 4 Units [[id number]] Ordering Provider: Parris Soto NP Status: Completed (Past End Date/Time) Ordered On: 12/12/23 0649 Starts/Ends: 12/12/23729 - 12/12/23 0743 Ordered Dose (Remaining/Total): 0.05 Units/kg (0/1) Route: intravenous Frequency: Once Ordered Rate/Order Duration: -- / -- Admin Instructions: Administer AFTER dextrose infusion started. Dose = 0.05 units/kg; Maximum 5 units/dose. Timestamps Action Dose Route Other Information 12/12/23 0743 Given 4 Units intravenous Performed by: Clara Padilla RN Dual Signoff by: Eneida Kaiser RN Scanned Package: [id number] carvediloL (COREG) tablet 25 mg [[id number]] Ordering Provider: Parris Soto NP Status: Dispensed Ordered On: 12/12/23 1241 Start: 12/12/23 1800 Ordered Dose (Remaining/Total): 25 mg (--/--) Route: oral Frequency: 2 times daily with meals (bkfst, dinner) Ordered Rate/Order Duration: -- / -- Timestamps Action Dose Route Other Information 12/14/23 0817 Given 25 mg oral Performed by: Dariana Washington RN Scanned Package: 8088-8162-72 carvediloL (COREG) tablet 12.5 mg [[id number]] Ordering Provider: Parris Soto NP Status: Completed (Past End Date/Time) Ordered On: 12/12/23 1241 Starts/Ends: 12/12/23 1315 - 12/12/23 1420 Ordered Dose (Remaining/Total): 12.5 mg (0/1) Route: oral Frequency: Once Ordered Rate/Order Duration: -- / -- Timestamps Action Dose Route Other Information 12/12/23 1420 Given 12.5 mg oral Performed by: Clara Padilla RN Scanned Package: 36538-074-93 calcium carbonate (TUMS) chewable tablet 500 mg [[id number]] Ordering Provider: Parris Soto NP Status: Dispensed Ordered On: 12/12/23 1241 Start: 12/12/23 1315 Ordered Dose (Remaining/Total): 200 mg of elemental calcium (--/--) Route: oral Frequency: 2 times daily Ordered Rate/Order Duration: -- / -- Timestamps Action Dose Route Other Information 12/14/23 0817 Given 500 mg oral Performed by: Dariana Washington RN Scanned Package: 67520-556-34 sodium chloride 0.9% IVPB 0-250 mL [[id number]] Ordering Provider: Alia Ibarra MD Status: Completed (Past End Date/Time) Ordered On: 12/13/23420 Starts/Ends: 12/13/23 050 - 12/13/23 0828 Ordered Dose (Remaining/Total): 0-250 mL (0/1) Route: intravenous Frequency: Once Ordered Rate/Order Duration: -- / -- Admin Instructions: Prime blood tubing and administer amount needed to clear line (usually 50-100 mL) after transfusion complete. Timestamps Action Dose Route Other Information 12/13/23827 New Bag 250 mL intravenous Performed by: Anh Savage RN Scanned Package: [id number] sodium chloride 0.9% IVPB 0-250 mL [[id number]] Ordering Provider: Alia Ibarra MD Status: Completed [...] Performed by: Alfredo Lind RN Scanned Package: [id number] magnesium sulfate 2 g/50 mL in water (premix) 2 g [[id number]] Ordering Provider: Alia Ibarra MD Status: Completed (Past End Date/Time) Ordered On: 12/13/232204 Starts/Ends: 12/13/232244 - 12/13/232339 Ordered Dose (Remaining/Total): 2 g (0/1) Route: intravenous Frequency: Once Ordered Rate/Order Duration: -- / 60 Minutes Timestamps Action Dose / Duration Route Other Information 12/13/232239 New Bag 2 g 60 Minutes intravenous Performed by: Alfredo Lind RN Scanned Package: [id number] bisacodyL (DULCOLAX) suppository 10 mg [[id number]] Ordering Provider: Parris Soto NP Status: Dispensed Ordered On: 12/14/23904 Starts/Ends: 12/14/23944 - 12/15/23 0945 Ordered Dose (Remaining/Total): 10 mg (1/1) Route: rectal Frequency: Once Ordered Rate/Order Duration: -- / -- (No admins scheduled or recorded for this medication) magnesium citrate oral solution 296 mL [[id number]] Ordering Provider: Parris Soto NP Status: Completed (Past End Date/Time) Ordered On: 12/14/23904 Starts/Ends: 12/14/23944 - 12/14/23 101 Ordered Dose (Remaining/Total): 296 mL (0) Route: oral Frequency: Once Ordered Rate/Order Duration: -- / -- Timestamps Action Dose Route Other Information 12/14/23 1013 Given 296 mL oral Performed by: Dariana Washington RN Scanned Package: 23323-344-21 , OT Eval and Treat Last 72 Hours OT Evaluation Row Name 12/14/23 0918 12/11/23 1150 12/10/23 1346 12/09/23 0710 Chart Reviewed Yes -ER Yes -ML -- -- Session Type Treatment -ER Evaluation - -- -- OT Received On -- 12/11/23 - -- -- Safe Environment -- Arm band checked;Patient found in supine;Session completed bedside;Gait belt utilized for all out of bed mobility - -- -- Subjective -- Agreeable to Therapy - -- -- OT Missed Visit Reason -- [...] -ML -- -- Home ADL Equipment-Available -- Commodities Requirements Analyst -ML -- -- Home ADL Equipment-Currently Using -- None -ML -- -- Level of [place] -- Independent with ADLs;Independent functional transfers;Independent with ambulation;Independent with homemaking with ambulation -ML -- -- Lives With -- Alone -ML -- -- Receives Help From -- Family;Neighbor son may be able to stay with 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 -ML -- -- Driving -- Yes -ML -- -- Mode of Transportation -- Car -ML -- -- ADL Assistance -- Independent -ML -- -- Instrumental ADL (IADL) Assistance -- Independent -ML -- -- Vocational/Occupation -- Retired -ML -- -- Type of Occupation -- [employer] -ML -- -- Fall within the last [...] and address after me -- Miguel Carrasquillo [address] [place] [address] -ML -- -- Without looking at the [...] Cosigned By Initials Name Effective Dates ER LauraMarilee carcamoselvin Leijaa, OT 02/02/23 - OT Notes Notes [...] (r) MB (c) -- -AR Level of [place] Independent with ADLs;Independent functional transfers;Independent with ambulation -BA (r) MB (c) -- -AR Lives With Alone -BA (r) MB (c) -- -AR Receives Help From Family;Neighbor Vascular Technician assist -BA (r) MB (c) -- -AR [...] 0 -BA (r) MB (c) -- 9. Manager Office Services Object from Floor from a Standing Position [...] Unable to assess Unable to assess Theodore Gordon Gordon Row Name 12/12/231999 Dressing Status Drainage shadowing [...] Only Vital Signs 12/12 0712/13 0659 12/13 0712/13 1156 Most Recent Temp (??C) 36.3 - [...] from the original note were not included. [facility] Geriatric Trauma Service Initial Geriatric Assessment Note [...] the Shift: VSS, pain managed, I/O, bath Half-Way Patient Centered Goal for Treatment: discharge Summary: [...] the Shift: VSS, pain managed, I/O, bath Half-Way Patient Centered Goal for Treatment: discharge Summary: [...] for the conversation: patient and care steam box operator(s): Technology Architect Advance Directive: Yes On file: Yes Power of Fire Management Technician Name: Primary: Homer Culp (Son) ([phone]) First alternate: Dolores Robbi ([phone]) Summary of the conversation: SW notified by previous floor SW that AD/ DPOA paperwork has been provided and and completed. Patient A&O X 4 and agreeable to sing documentation.[facility]. Document notarized and SW faxed to [...] comfort and safety, comfort and safety, Is/Os Half-Way Patient Centered Goal for Treatment: discharge Summary: [...] pain management, rest and comfort, I&O, safety Half-Way Patient Centered Goal for Treatment: discharge Summary: [...] pain management, rest and comfort, I&Os, safety Half-Way Patient Centered Goal for Treatment: discharge Summary: [...] pain management, rest and cmfort, I&O, NPO Graphic Engineer Patient Centered Goal for Treatment: Discharge Summary: [...] Anesthesiologist: Axel Ryan MD; Endy Shanks MD CHIEF OPERATOR SYNTHESIS: Shagufta Finch CRNA Student Nurse Security System Analyst: Kevin Larios Correctional Probation Officer: Uri Willams RN; Ayleen Espinzoa RN Physician Financial Services Representative: Jermaine Jaimes PA Scrub: Bethel Stevens ST DATE OF SURGERY : 12/09/2023 Preoperative Diagnosis: Pre-op Diagnosis * Closed nondisplaced intertrochanteric fracture of left femur, initial encounter ([facility]) [S72.145A] Postoperative Diagnosis: Post-op Diagnosis * Closed nondisplaced intertrochanteric fracture of left femur, initial encounter ([facility]) [S72.145A] Procedure(s): Procedure(s) (LRB): OPEN REDUCTION INTERNAL FIXATION LEFT INTERTROCHANTERIC FEMUR FRACTURE (Left) Operative Findings: IT fracture Estimated Blood Loss: 150 Intraoperative Fluids: 500 mls Specimens: No specimen collected in procedure Implants: Implant Name Type Inv. Item Serial No. Miter Saw Operator Lot No. LRB No. Used Action SYNTHES Dhs/dcp 174mm 38mm 10 Hole Hip Condyle 130d Standard Barrel Plate 281.010S - [id number] SYNTHES Dhs/dcp 174mm 38mm 10 Hole Hip Condyle 130d Standard Barrel Plate 281.010S Synthes [id number] Left 1 Implanted SYNTHES 4.5mm 8mm 38mm Self Tap Large Hexagonal Socket Cortex Screw Bone 214.838 - [id number] SYNTHES 4.5mm 8mm 38mm Self Tap Large Hexagonal Socket Cortex Screw Bone 214.838 Synthes Left 1 Implanted SYNTHES 4.5mm 8mm 40mm Self Tap Large Hexagonal Socket Cortex Screw Bone 214.840 - [id number] Screw SYNTHES 4.5mm 8mm 40mm Self Tap Large Hexagonal Socket Cortex Screw Bone 214.840 Synthes Left 1 Implanted SYNTHES Dhs Dcs 36mm Compression Hip Condylar Screw Bone Stainless Steel 280.990 - [id number] SYNTHES Dhs Dcs 36mm Compression Hip Condylar Screw Bone Stainless Steel 280.990 Synthes Left 1 Implanted SYNTHES 1.7mm 750mm Crimp Cerclage Cable Orthopedic Stainless Steel 298.801.01S - [id number] SYNTHES 1.7mm 750mm Crimp Cerclage Cable Orthopedic Stainless Steel 298.801.01S Synthes [id number] Left 1 Implanted SYNTHES Dhs Dcs 12mm 8mm 2.7mm 90mm 22mm Lag Cannulated Hip Condylar 280.290 - [id number] SYNTHES Dhs Dcs 12mm 8mm 2.7mm 90mm [...] arranged?: No (12/09/231330) Health Insurance Coverage: [facility] Medicare Prescription Coverage: yes Pharmacy: [id number] [address] [facility] [address] [place] [id number] Primary Care Provider: Cuba Larsen MD Prior to Admission: Functional Status: Independent with ADLs Primary Caregiver: Self Support System: Family members Home Care Services: No Outpatient Services: No Durable Medical Equipment: None Living Arrangements: Alone Type of Residence: Private residence Steps in home?: Yes, Outside of home Number of steps outside: 5 steps Medication management: Independent (12/09/231330) Potential discharge needs include: credit collections manager will follow for post acute discharge [...] Collaboration with Patient, Provider, Direct Care Nurse, Technology Architect, and other members of theHealth Care Team to assure needed interventions completed. 2. Return patient to optimal level of self-care post discharge. 3. Quahogger will follow for Discharge Planning - interventions [...] after surgery today. Spoke with brother, [facility] 12/08 who also supported patients decision for [...] Hgb stable at 7.7 (7.7), DC to [facility] Treatment Plan: done 12/15 * Assessment & Plan Note - Emy Sanchez NP - 12/09/2023 6:13 AM CDT Associated Problem(s): Encounter for medication review Medications reviewed and updated in admissions tab [facility] * Assessment & Plan Note [...] 25 mg PO BID Follow up scheduled: [facility] 01/31 at 1:20 * Plan of Care - Christofer Robison - 12/09/2023 2:04 AM CDT Goals: Clinical Goals for the Shift: Finish admission Graphic Engineer Patient Centered Goal for Treatment: Discharge Summary: [...] DVT prophylaxis- resume home Eliquis at discharged -[facility] referral, started Vitamin D Resume home anticoagulation [...] admission to [facility] Course as of 12/08/231 Time: 12/07 [...] admit. By: Dick Nova MD Time: 12/07 6605 Comment: Discussed FICB with ortho, they are planning for traction view film and would like to discuss with attending to confirm. Pt is on Eliquis but this may only be a relative contraindication--can discuss with pt if receive the green light from Ortho. By: Dikc Nova MD Time: 12/07 5495 Comment: Pt reevaluated after signout. Found resting [...] MORE VIEWS ED 12/08/2023 7:33 PM CDT PA CRITICAL CARE ILL/INJURED PATIENT INIT 30-74 MIN [...] (ABNORMAL) POCT glucose (12/16/2023 5:11 PM CDT) [facility] Signature Glucose, POC 282(H) 70 - 199 mg/dL Blood 12/16/2023 5:11 PM CDT 12/16/2023 5:11 PM CDT Kevin Corrigan MD LAB POCT ORDERABLES - DEVICE Final Result Performing Organization Address [facility] Co de Phone Number [facility] [place] [place] [address] * (ABNORMAL) POCT glucose (12/16/2023 11:18 AM CDT) Pathologist [facility] Glucose, POC 286(H) 70 - 199 mg/dL Blood 12/16/2023 11:1 8 AM CDT 12/16/2023 11:18 AM CDT Kevin Corrigan MD LAB POCT ORDERABLES - DEVICE Final Result Performing Organization Address [facility] de Phone Number [facility] [place] [address] * COVID-19 Coronavirus RNA Nasopharyngeal (12/16/2023 10:15 AM CDT) [facility] COVID-19 RNA Negative Negative [facility] Nasopharyngeal 12/16/2023 10 :15 AM CDT 12/16/2023 10:33 AM CDT Narrative [facility] - 12/16/2023 11:27 AM CDT Is the patient experiencing any symptoms consistent with COVID (eg. Fever, cough, shortness of breath)?->No What is the reason for testing?->Screening for post-acute care placement ??Interpretive data Testing performed by [facility] ([phone]). This test is performed using the [employer] Xpert Xpress CoV-2 plus assay. This is a real-time RT-PCR test intended for the qualitative detection of nucleic acid from the SARS-CoV-2. This assay has been cleared by the [place] Food and Drug administration. The performance characteristics have been verified by the [facility]. ??Results must be considered in the clinical context, and a negative result does not rule out infection. Interpretive data last revised 2023. Danette Causey NP LAB MICROBIOLOGY - GENE RAL ORDERABLES Final Result Performing Organization Address [facility] [place] [address] [facility] * Type and screen (12/16/2023 9:21 AM CDT) [facility] Gian, indirect Negative ABO Rh O Positive [facility] Blood 12/16/2023 9:21 AM CDT 12/16/2023 9:35 AM CDT Narrative [facility] - 12/16/2023 10:34 AM CDT Has the patient had Daratumumab or Isatuximab in the past 6 months?->Unknown Danette Cauesy NP LAB BLOOD BANK TEST ORD ERABLES Final Result Performing Organization Address [facility] [place] [address] * (ABNORMAL) CBC without differential (12/16/2023 8:20 AM CDT) [facility] WBC 8.5 3.8 - 9.9 K/cumm Hgb 7.7(L) 11.9 - 15.5 g/dL [facility] Hct 23.4(L) 35.6 - 45.5 % [facility] Plt 237 150 - 400 K/cumm [facility] MPV 9.7 9.1 - 12.3 fL [facility] RBC 2.43(L) 3.90 - 5.20 M/cumm [facility] MCV 96.3 81.3 - 96.4 fL [facility] MCH 31.7 27.1 - 33.3 pg [facility] MCHC 32.9 32.3 - 35.7 g/dL [facility] RDW CV 15.4(H) 11.1 - 14.9 % [facility] RDW SD 52.3(H) 35.7 - 48.1 fL [facility] NRBC abs 0.06(H) 0.00 - 0.01 K/cumm [facility] Blood 12/16/2023 8:20 AM CDT 12/16/2023 8:29 AM CDT us Danette Causey NP LAB BLOOD ORDERABLES Fi nal Result Performing Organization Address City/[facility]/ZIP Co de Phone Number [facility] [employer] [place] [address] * Mislabeled Test (12/16/2023 8:14 AM CDT) Location Other location Reason Label discrepancy [facility] Mislabel resolution Testing canceled [facility] Blood 12/16/2023 8:14 AM CDT 12/16/2023 8:30 AM CDT Kevin Corrigan MD LAB BLOOD ORDERABLES F inal Result Performing Organization Address [facility] Co de Phone Number [facility] [place] [employer] [place] [address] * POCT glucose (12/16/2023 7:50 AM CDT) Glucose, POC 176 70 - 199 mg/dL Blood 12/16/2023 7:50 AM CDT 12/16/2023 7:50 AM CDT Kevin Corrigan MD LAB POCT ORDERABLES - DEVICE Final Result Performing Organization Address [facility] Co de Phone Number [facility] [place] [address] * Potassium, whole blood (12/15/2023 11:54 PM CDT) Pathologist [facility] Potassium, bld 4.8 3.3 - 4.9 mmol/L Blood 12/15/2023 11:5 4 PM CDT 12/16/2023 12:07 AM CDT Kevin Corrigan MD LAB BLOOD ORDERABLES F inal Result Performing Organization Address [facility] de Phone Number [facility] Department [place] [employer] [place] [address] * (ABNORMAL) POCT glucose (12/15/2023 9:08 PM CDT) [facility] Glucose, POC 223(H) 70 - 199 mg/dL Blood 12/15/2023 9:08 PM CDT 12/15/2023 9:08 PM CDT Kevin Corrigan MD LAB POCT ORDERABLES - DEVICE Final Result Performing Organization Address [facility] de Phone Number [facility] Department [place] [employer] [place] [address] * eGFR (12/15/2023 8:48 PM CDT) Pathologist [facility] eGFR [...] ORDERABLES F inal Result Performing Organization Address City/[facility] Co de Phone Number [facility] [place] [address] * Phosphorus (12/15/2023 8:48 PM CDT) Phosphorus, pl 3.5 2.3 - 4.5 mg/dL Blood 12/15/2023 8:48 PM CDT 12/15/2023 9:05 PM CDT Kevin Corrigan MD LAB BLOOD ORDERABLES F inal Result Performing Organization Address City/[facility] Co de Phone Number [facility] [place] [address] * Magnesium (12/15/2023 8:48 PM CDT) Magnesium 2.0 1.4 - 2.5 mg/dL Blood 12/15/2023 8:48 PM CDT 12/15/2023 9:05 PM CDT Kevin Corrigan MD LAB BLOOD ORDERABLES F inal Result Performing Organization Address City/[facility] Co de Phone Number [facility] [place] [address] * (ABNORMAL) Basic metabolic panel (12/15/2023 8:48 PM CDT) [facility] Sodium 129(L) 135 - 145 mmol/L Potassium, pl 5.3(H) 3.3 - 4.9 mmol/L [facility] Chloride 95(L) 97 - 110 mmol/L [facility] CO2 27 22 - 32 mmol/L [facility] Anion gap 7 2 - 15 mmol/L [facility] BUN 26(H) 6 - 25 mg/dL [facility] Creatinine 0.62 0.60 - 1.10 mg/dL [facility] Glucose 214(H) 70 - 199 mg/dL [facility] Comment: Interpretive Data Fasting glucose >/= 126 [...] 2022. Calcium 9.1 8.5 - 10.3 mg/dL [facility] Blood 12/15/2023 8:48 PM CDT 12/15/2023 9:05 PM CDT Kevin Corrigan MD LAB BLOOD ORDERABLES F inal Result [facility] [place] [address] * (ABNORMAL) CBC without differential (12/15/2023 8:48 PM CDT) [facility] WBC 7.8 3.8 - 9.9 K/cumm Hgb 7.7(L) 11.9 - 15.5 g/dL [facility] Hct 24.0(L) 35.6 - 45.5 % [facility] Plt 220 150 - 400 K/cumm [facility] MPV 9.6 9.1 - 12.3 fL [facility] RBC 2.51(L) 3.90 - 5.20 M/cumm [facility] MCV 95.6 81.3 - 96.4 fL [facility] MCH 30.7 27.1 - 33.3 pg [facility] MCHC 32.1(L) 32.3 - 35.7 g/dL [facility] RDW CV 15.4(H) 11.1 - 14.9 % [facility] RDW SD 51.8(H) 35.7 - 48.1 fL [facility] NRBC abs 0.08(H) 0.00 - 0.01 K/cumm [facility] Blood 12/15/2023 8:48 PM CDT 12/15/2023 9:05 PM CDT Kevin Corrigan MD LAB BLOOD ORDERABLES F inal Result [facility] Department [place] [employer] [place] [address] * POCT glucose (12/15/2023 5:43 PM CDT) Glucose, POC 196 70 - 199 mg/dL Blood 12/15/2023 5:43 PM CDT 12/15/2023 5:43 PM CDT Kevin Corrigan MD LAB POCT ORDERABLES - DEVICE Final Result Performing Organization Address City/[facility]/ZIP Co de Phone Number [facility] Department [place] [employer] [place] [address] * (ABNORMAL) POCT glucose (12/15/2023 11:37 AM CDT) Glucose, POC 240(H) 70 - 199 mg/dL Blood 12/15/2023 11:3 7 AM CDT 12/15/2023 11:37 AM CDT Kevin Corrigan MD LAB POCT ORDERABLES - DEVICE Final Result Performing Organization Address [facility] de Phone Number [facility] [place] [address] * POCT glucose (12/15/2023 7:47 AM CDT) Glucose, POC 183 70 - 199 mg/dL Blood 12/15/2023 7:47 AM CDT 12/15/2023 7:47 AM CDT Kevin Corrigan MD LAB POCT ORDERABLES - DEVICE Final Result Performing Organization Address [facility] de Phone Number [facility] Department [place] [employer] [place] [address] * (ABNORMAL) Potassium, whole blood (12/15/2023 12:25 AM CDT) Pathologist [facility] Potassium, bld 5.0(H) 3.3 - 4.9 mmol/L Blood 12/15/2023 12:2 5 AM CDT 12/15/2023 12:35 AM CDT Kevin Corrigan MD LAB BLOOD ORDERABLES F inal Result Performing Organization Address [facility] de Phone Number [facility] [employer] [place] [address] * eGFR (12/14/2023 9:51 PM CDT) eGFR [...] ORDERABLES F inal Result Performing Organization Address [facility]/ZIP Co de Phone Number [facility] [place] [address] * (ABNORMAL) POCT glucose (12/14/2023 9:51 PM CDT) Glucose, POC 200(H) 70 - 199 mg/dL Blood 12/14/2023 9:51 PM CDT 12/14/2023 9:51 PM CDT Kevin Corrigan MD LAB POCT ORDERABLES - DEVICE Final Result Performing Organization Address City/[facility] Co de Phone Number [facility] [place] [address] * Phosphorus (12/14/2023 9:51 PM CDT) [facility] Phosphorus, pl 2.4 2.3 - 4.5 mg/dL Blood 12/14/2023 9:51 PM CDT 12/14/2023 10:27 PM CDT Kevin Corrigan MD LAB BLOOD ORDERABLES F inal Result [facility] [place] [employer] [place] [address] * Magnesium (12/14/2023 9:51 PM CDT) [facility] Magnesium 2.1 1.4 - 2.5 mg/dL Blood 12/14/2023 9:51 PM CDT 12/14/2023 10:27 PM CDT Kevin Corrigan MD LAB BLOOD ORDERABLES F inal Result Performing Organization Address City/[facility] [place] [address] * (ABNORMAL) Basic metabolic panel (12/14/2023 9:51 PM CDT) [facility] Sodium 128(L) 135 - 145 mmol/L Potassium, pl 5.3(H) 3.3 - 4.9 mmol/L [facility] Chloride 97 97 - 110 mmol/L [facility] CO2 28 22 - 32 mmol/L [facility] Anion gap 3 2 - 15 mmol/L [facility] BUN 21 6 - 25 mg/dL [facility] Creatinine 0.53(L) 0.60 - 1.10 mg/dL [facility] Glucose 180 70 - 199 mg/dL [facility] Comment: Interpretive Data Fasting glucose >/= 126 [...] 2022. Calcium 8.9 8.5 - 10.3 mg/dL [facility] Blood 12/14/2023 9:51 PM CDT 12/14/2023 10:27 PM CDT us Kevin Corrigan MD LAB BLOOD ORDERABLES F inal Result [facility] [place] [address] * (ABNORMAL) CBC without differential (12/14/2023 9:51 PM CDT) [facility] WBC 7.3 3.8 - 9.9 K/cumm Hgb 8.3(L) 11.9 - 15.5 g/dL [facility] Hct 24.9(L) 35.6 - 45.5 % [facility] Plt 177 150 - 400 K/cumm [facility] MPV 9.6 9.1 - 12.3 fL [facility] RBC 2.63(L) 3.90 - 5.20 M/cumm [facility] MCV 94.7 81.3 - 96.4 fL [facility] MCH 31.6 27.1 - 33.3 pg [facility] MCHC 33.3 32.3 - 35.7 g/dL [facility] RDW CV 15.4(H) 11.1 - 14.9 % [facility] RDW SD 51.4(H) 35.7 - 48.1 fL [facility] NRBC abs 0.04(H) 0.00 - 0.01 K/cumm [facility] Blood 12/14/2023 9:51 PM CDT 12/14/2023 10:27 PM CDT Kevin Corrigan MD LAB BLOOD ORDERABLES F inal Result Performing Organization Address [facility] Co de Phone Number [facility] [place] [address] * POCT glucose (12/14/2023 5:25 PM CDT) Glucose, POC 173 70 - 199 mg/dL Blood 12/14/2023 5:2 5 PM CDT 12/14/2023 5:25 PM CDT Kevin Corrigan MD LAB POCT ORDERABLES - DEVICE Final Result Performing Organization Address [facility] de Phone Number [facility] [place] [address] * (ABNORMAL) POCT glucose (12/14/2023 11:51 AM CDT) Glucose, POC 267(H) 70 - 199 mg/dL Blood 12/14/2023 11:5 1 AM CDT 12/14/2023 11:51 AM CDT Kevin Corrigan MD LAB POCT ORDERABLES - DEVICE Final Result Performing Organization Address [facility] Co de Phone Number [facility] [place] [address] * (ABNORMAL) POCT glucose (12/14/2023 8:16 AM CDT) Glucose, POC 200(H) 70 - 199 mg/dL Blood 12/14/2023 8:16 AM CDT 12/14/2023 8:16 AM CDT Kevin Corrigan MD LAB POCT ORDERABLES - DEVICE Final Result [facility] [place] [address] * (ABNORMAL) CBC without differential (12/14/2023 3:20 AM CDT) Pathologist [facility] WBC 7.5 3.8 - 9.9 K/cumm Hgb 8.1(L) 11.9 - 15.5 g/dL [facility] Hct 24.8(L) 35.6 - 45.5 % [facility] Plt 170 150 - 400 K/cumm [facility] MPV 10.1 9.1 - 12.3 fL [facility] RBC 2.63(L) 3.90 - 5.20 M/cumm [facility] MCV 94.3 81.3 - 96.4 fL [facility] MCH 30.8 27.1 - 33.3 pg [facility] MCHC 32.7 32.3 - 35.7 g/dL [facility] RDW CV 15.0(H) 11.1 - 14.9 % [facility] RDW SD 50.9(H) 35.7 - 48.1 fL [facility] NRBC abs 0.02(H) 0.00 - 0.01 K/cumm [facility] Blood 12/14/2023 3:20 AM CDT 12/14/2023 4:09 AM CDT Narrative [facility] - 12/14/2023 4:16 AM CDT 1 hour after transfusion of red blood cells is complete Kevin Corrigan MD LAB BLOOD ORDERABLES F inal Result [facility] [place] [address] * POCT glucose (12/14/2023 3:12 AM CDT) Glucose, POC 170 70 - 199 mg/dL Blood 12/14/2023 3:12 AM CDT 12/14/2023 3:12 AM CDT Result [facility] Kevin Corrigan MD LAB POCT ORDERABLES - DEVICE Final Result Performing Organization Address [facility] de Phone Number [facility] [place] [address] * Transfuse RBC (12/14/2023 2:21 AM CDT) Blood Kevin Corrigan MD BLOOD TRANSFUSION ORDE RABLES Final Result Performing Organization Address [facility] de Phone Number [facility] [place] [address] * Transfuse RBC: 1 Units (12/14/2023 2:21 AM CDT) Blood Result [facility] Kevin Corrigan MD BLOOD TRANSFUSION ORDE RABLES Final Result * POCT glucose (12/13/2023 11:29 PM CDT) Glucose, POC 185 70 - 199 mg/dL Blood 12/13/2023 11:2 9 PM CDT 12/13/2023 11:29 PM CDT Result [facility] Kevin Corrigan MD LAB POCT ORDERABLES - DEVICE Final Result Performing Organization Address [facility] Co de Phone Number [facility] [place] [address] * (ABNORMAL) Potassium, whole blood (12/13/2023 10:32 PM CDT) Potassium, bld 5.1(H) 3.3 - 4.9 mmol/L Blood 12/13/2023 10:3 2 PM CDT 12/13/2023 10:45 PM CDT Kevin Corrigan MD LAB BLOOD ORDERABLES F inal Result [facility] [place] [address] * Prepare RBC: 1 Units (12/13/2023 9:45 PM CDT) [facility] Product code [id number] Unit Number [id number] [facility] Product Blood Type OPOS [facility] Dispense Status PRESUMED TRANSFUSED [facility] Blood 12/13/2023 9:45 PM CDT 12/13/2023 9:45 PM CDT Narrative [facility] - 12/14/2023 11:10 AM CDT Are special requirements needed? (All products are leukoreduced and CMV- safe)- >No Date required:-20231213 LRRBC # of [id number] Reasons:-Hgb <7 g/dL} Kevin Corrigan MD BLOOD BANK PRODUCT ORD ERABLES Final Result Performing Organization Address [facility]/State/ZIP Co de Phone Number [facility] [place] [address] * eGFR (12/13/2023 9:00 PM CDT) Pathologist [facility] eGFR [...] PM CDT 12/13/2023 9:22 PM CDT Result [facility] Kevin Corrigan MD LAB BLOOD ORDERABLES F inal Result Performing Organization Address City/[facility]/ZIP Co de Phone Number [facility] [place] [address] * (ABNORMAL) Phosphorus (12/13/2023 9:00 PM CDT) Phosphorus, pl 2.1(L) 2.3 - 4.5 mg/dL Blood 12/13/2023 9:00 PM CDT 12/13/2023 9:22 PM CDT Kevin Corrigan MD LAB BLOOD ORDERABLES F inal Result [facility] [place] [address] * Magnesium (12/13/2023 9:00 PM CDT) Magnesium 1.7 1.4 - 2.5 mg/dL Blood 12/13/2023 9:00 PM CDT 12/13/2023 9:22 PM CDT Kevin Corrigan MD LAB BLOOD ORDERABLES F inal Result Performing Organization Address City/[facility]/ZIP Co de Phone Number [facility] Department [place] [address] * (ABNORMAL) Basic metabolic panel (12/13/2023 9:00 PM CDT) Pathologist [facility] Sodium 131(L) 135 - 145 mmol/L Potassium, pl 5.3(H) 3.3 - 4.9 mmol/L [facility] Chloride 101 97 - 110 mmol/L [facility] CO2 26 22 - 32 mmol/L [facility] Anion gap 4 2 - 15 mmol/L [facility] BUN 28(H) 6 - 25 mg/dL [facility] Creatinine 0.61 0.60 - 1.10 mg/dL [facility] Glucose 184 70 - 199 mg/dL [facility] Comment: Interpretive Data Fasting glucose >/= 126 [...] 2022. Calcium 8.5 8.5 - 10.3 mg/dL [facility] Blood 12/13/2023 9:00 PM CDT 12/13/2023 9:22 PM CDT Kevin Corrigan MD LAB BLOOD ORDERABLES F inal Result Performing Organization Address City/[facility]/ZIP Co de Phone Number [facility] [place] [address] * (ABNORMAL) CBC without differential (12/13/2023 9:00 PM CDT) Pathologist [facility] WBC 7.4 3.8 - 9.9 K/cumm Hgb 7.0(L) 11.9 - 15.5 g/dL [facility] Hct 21.3(L) 35.6 - 45.5 % [facility] Plt 158 150 - 400 K/cumm [facility] MPV 9.9 9.1 - 12.3 fL [facility] RBC 2.23(L) 3.90 - 5.20 M/cumm [facility] MCV 95.5 81.3 - 96.4 fL [facility] MCH 31.4 27.1 - 33.3 pg [facility] MCHC 32.9 32.3 - 35.7 g/dL [facility] RDW CV 14.9 11.1 - 14.9 % [facility] RDW SD 51.1(H) 35.7 - 48.1 fL [facility] NRBC abs 0.02(H) 0.00 - 0.01 K/cumm [facility] Blood 12/13/2023 9:00 PM CDT 12/13/2023 9:22 PM CDT Kevin Corrigan MD LAB BLOOD ORDERABLES F inal Result [facility] Department [place] [employer] [place] [address] * POCT glucose (12/13/2023 8:16 PM CDT) Glucose, POC 183 70 - 199 mg/dL Blood 12/13/2023 8:16 PM CDT 12/13/2023 8:16 PM CDT Kevin Corrigan MD LAB POCT ORDERABLES - DEVICE Final Result Performing Organization Address City/[facility]/ZIP Co de Phone Number [facility] [employer] [place] [address] * POCT glucose (12/13/2023 4:15 PM CDT) Glucose, POC 192 70 - 199 mg/dL Blood 12/13/2023 4:15 PM CDT 12/13/2023 4:15 PM CDT us Kevin Corrigan MD LAB POCT ORDERABLES - DEVICE Final Result Performing Organization Address [facility] Phone Number [facility] [place] [address] * eGFR (12/13/2023 1:33 PM CDT) eGFR [...] Soto NP LAB BLOOD ORDERABLES Final Result [facility] [place] [address] * Differential, auto (12/13/2023 1:33 PM CDT) Neutrophil abs 5.1 1.5 - 6.5 K/cumm Imm gran abs 0.1 0.0 - 0.1 K/cumm [facility] Lymphocyte abs 1.3 0.8 - 3.3 K/cumm [facility] Monocyte abs 0.6 0.2 - 0.8 K/cumm [facility] Eosinophil abs 0.0 0.0 - 0.5 K/cumm [facility] Basophil abs 0.0 0.0 - 0.1 K/cumm [facility] Neutrophil pct 71.9 % [facility] Comment: Interpretive Data Percent cell count reference ranges are not reported, since discordance with absolute values may lead to misinterpretation of CBC data. Current Interpretive Data was last revised on 2017. Imm gran pct 0.7 % [facility] Comment: Interpretive Data Percent cell count reference ranges are not reported, since discordance with absolute values may lead to misinterpretation of CBC data. Current Interpretive Data was last revised on 2017. Lymphocyte pct 19.0 % [facility] Comment: Interpretive Data Percent cell count reference ranges are not reported, since discordance with absolute values may lead to misinterpretation of CBC data. Current Interpretive Data was last revised on 2017. Monocyte pct 7.8 % [facility] Comment: Interpretive Data Percent cell count reference ranges are not reported, since discordance with absolute values may lead to misinterpretation of CBC data. Current Interpretive Data was last revised on 2017. Eosinophil pct 0.3 % [facility] Comment: Interpretive Data Percent cell count reference ranges are not reported, since discordance with absolute values may lead to misinterpretation of CBC data. Current Interpretive Data was last revised on 2017. Basophil pct 0.3 % [facility] Comment: Interpretive Data Percent cell count reference ranges are not reported, since discordance with absolute values may lead to misinterpretation of CBC data. Current Interpretive Data was last revised on 2017. Blood 12/13/2023 1:33 PM CDT 12/13/2023 1:49 PM CDT us Parris Soto NP LAB BLOOD ORDERABLES Final Result Performing Organization Address City/[facility]/ZIP Co de Phone Number [facility] [place] [address] * (ABNORMAL) Basic metabolic panel (12/13/2023 1:33 PM CDT) Pathologist [facility] Sodium 132(L) 135 - 145 mmol/L Potassium, pl 5.0(H) 3.3 - 4.9 mmol/L [facility] Chloride 97 97 - 110 mmol/L [facility] CO2 26 22 - 32 mmol/L [facility] Anion gap 9 2 - 15 mmol/L [facility] BUN 31(H) 6 - 25 mg/dL [facility] Creatinine 0.63 0.60 - 1.10 mg/dL [facility] Glucose 207(H) 70 - 199 mg/dL [facility] Comment: Interpretive Data Fasting glucose >/= 126 [...] 2022. Calcium 8.6 8.5 - 10.3 mg/dL [facility] Blood 12/13/2023 1:33 PM CDT 12/13/2023 1:49 PM CDT Parris Soto NP LAB BLOOD ORDERABLES Final Result Performing Organization Address City/[facility]/ZIP Co de Phone Number [facility] [place] [address] * (ABNORMAL) CBC with auto differential (12/13/2023 1:33 PM CDT) [facility] WBC 7.1 3.8 - 9.9 K/cumm Hgb 7.1(L) 11.9 - 15.5 g/dL [facility] Hct 21.9(L) 35.6 - 45.5 % [facility] Plt 166 150 - 400 K/cumm [facility] MPV 9.8 9.1 - 12.3 fL [facility] RBC 2.26(L) 3.90 - 5.20 M/cumm [facility] MCV 96.9(H) 81.3 - 96.4 fL [facility] MCH 31.4 27.1 - 33.3 pg [facility] MCHC 32.4 32.3 - 35.7 g/dL [facility] RDW CV 14.9 11.1 - 14.9 % [facility] RDW SD 52.4(H) 35.7 - 48.1 fL [facility] NRBC abs 0.02(H) 0.00 - 0.01 K/cumm [facility] Blood 12/13/2023 1:33 PM CDT 12/13/2023 1:49 PM CDT us Parris Soto NP LAB BLOOD ORDERABLES Final Result [facility] [place] [address] * (ABNORMAL) POCT glucose (12/13/2023 12:14 PM CDT) [facility] Glucose, POC 212(H) 70 - 199 mg/dL Blood 12/13/2023 12:1 4 PM CDT 12/13/2023 12:14 PM CDT us Kevin Corrigan MD LAB POCT ORDERABLES - DEVICE Final Result [facility] [place] [address] * Transfuse RBC (12/13/2023 9:49 AM CDT) Blood Kevin Corrigan MD BLOOD TRANSFUSION ORDE RABLES Final Result Performing Organization Address [facility] Co de Phone Number [facility] [place] [address] * Transfuse RBC: 1 Units (12/13/2023 9:49 AM CDT) Blood Kevin Corrigan MD BLOOD TRANSFUSION ORDE RABLES Final Result * POCT glucose (12/13/2023 8:25 AM CDT) Pathologist [facility] Glucose, POC 175 70 - 199 mg/dL Blood 12/13/2023 8:25 AM CDT 12/13/2023 8:25 AM CDT Kevin Corrigan MD LAB POCT ORDERABLES - DEVICE Final Result Performing Organization Address [facility] Co de Phone Number [facility] [place] [address] * ECG 12 lead (12/13/2023 5:50 AM CDT) Ventricular Rate EKG/Min 119 BPM [facility] Atrial Rate 44 BPM [facility] QRS-Interval (MSEC) 88 ms [facility] QT-Interval (MSEC) 318 ms [facility] QTc 447 ms [facility] R [place] 29 degrees [facility] T [place] -29 degrees [facility] Diagnosis Atrial fibrillation with rapid ventricular response Cannot rule out Inferior infarct , age undetermined Abnormal ECG When compared with ECG of 12-DEC-2023 05:53, ST elevation now present in Inferior leads Confirmed by GREGORY CLINE M.D ([id number]) on 12/14/2023 12:31:24 PM [facility] 12/13/2023 5:50 AM CDT 12/14/2023 12:31 PM CDT Kevin Corrigan MD ECG ORDERABLES Final Result Performing Organization Address [facility] Co de Phone Number [facility] * (ABNORMAL) Potassium, whole blood (12/13/2023 5:50 AM CDT) Potassium, bld 5.0(H) 3.3 - 4.9 mmol/L Blood 12/13/2023 5:50 AM CDT 12/13/2023 5:56 AM CDT Alia Ibarra MD LAB BLOOD ORDERABLES Final Resul t Performing Organization Address [facility] de Phone Number [facility] [place] [address] * Type and screen (12/13/2023 4:58 AM CDT) ABO Rh O Positive Gian, indirect Negative [facility] Blood 12/13/2023 4:58 AM CDT 12/13/2023 5:12 AM CDT Narrative [facility] [place] - 12/13/2023 6:03 AM CDT Has the patient had Daratumumab or Isatuximab in the past 6 months?->Unknown Kevin Corrigan MD LAB BLOOD BANK TEST OR DERABLES Final Result Performing Organization Address [facility] Co de Phone Number [facility] [place] [address] * POCT glucose (12/13/2023 4:55 AM CDT) Glucose, POC 194 70 - 199 mg/dL Blood 12/13/2023 4:55 AM CDT 12/13/2023 4:55 AM CDT us Kevin Corrigan MD LAB POCT ORDERABLES - DEVICE Final Result Performing Organization Address [facility] de Phone Number [facility] [place] [address] * Prepare RBC: 1 Units (12/13/2023 4:19 AM CDT) [facility] Product code [id number] Unit Number [id number] [facility] Product Blood Type OPOS [facility] Dispense Status PRESUMED TRANSFUSED [facility] Blood 12/13/2023 4:19 AM CDT 12/13/2023 4:21 AM CDT Narrative [facility] [place] - 12/14/2023 11:27 AM CDT Are special requirements needed? (All products are leukoreduced and CMV- safe)- >No Date required:-[id number] LRRBC # of [id number]-[id number] Reasons:-Hgb <7 g/dL} us Kevin Corrigan MD BLOOD BANK PRODUCT ORD ERABLES Final Result Performing Organization Address [facility] Co de Phone Number [facility] [place] [address] * eGFR (12/13/2023 3:08 AM CDT) [facility] eGFR 89 >=60 mL/min/1. 73 m2 Comment: [...] ORDERABLES Final Resul t Performing Organization Address [facility] Co de Phone Number [facility] [place] [address] * (ABNORMAL) Phosphorus (12/13/2023 3:08 AM CDT) Phosphorus, pl 1.5(L) 2.3 - 4.5 mg/dL Blood 12/13/2023 3:08 AM CDT 12/13/2023 3:29 AM CDT Alia Ibarra MD LAB BLOOD ORDERABLES Final Resul t Performing Organization Address [facility] Co de Phone Number [facility] [place] [address] * Magnesium (12/13/2023 3:08 AM CDT) Magnesium 1.8 1.4 - 2.5 mg/dL Blood 12/13/2023 3:08 AM CDT 12/13/2023 3:29 AM CDT us Alia Ibarra MD LAB BLOOD ORDERABLES Final Resul t Performing Organization Address City/[facility]/ZIP Co de Phone Number [facility] [place] [address] * (ABNORMAL) CBC without differential (12/13/2023 3:08 AM CDT) WBC 7.2 3.8 - 9.9 K/cumm Hgb 6.2(C) 11.9 - 15.5 g/dL [facility] Comment:Consistent with prev ious results Hct 19.4(L) 35.6 - 45.5 % [facility] Plt 168 150 - 400 K/cumm [facility] MPV 10.6 9.1 - 12.3 fL [facility] RBC 2.00(L) 3.90 - 5.20 M/cumm [facility] MCV 97.0(H) 81.3 - 96.4 fL [facility] MCH 31.0 27.1 - 33.3 pg [facility] MCHC 32.0(L) 32.3 - 35.7 g/dL [facility] RDW CV 14.8 11.1 - 14.9 % [facility] RDW SD 51.5(H) 35.7 - 48.1 fL [facility] NRBC abs 0.00 0.00 - 0.01 K/cumm [facility] Blood 12/13/2023 3:08 AM CDT 12/13/2023 3:30 AM CDT us Alia Ibarra MD LAB BLOOD ORDERABLES Final Resul t Performing Organization Address [facility]/ZIP Co de Phone Number [facility] [place] [employer] [place] [address] * (ABNORMAL) Basic metabolic panel (12/13/2023 3:08 AM CDT) Sodium 136 135 - 145 mmol/L Potassium, pl 5.4(H) 3.3 - 4.9 mmol/L [facility] Chloride 102 97 - 110 mmol/L [facility] CO2 28 22 - 32 mmol/L [facility] Anion gap 6 2 - 15 mmol/L [facility] BUN 28(H) 6 - 25 mg/dL [facility] Creatinine 0.63 0.60 - 1.10 mg/dL [facility] Glucose 168 70 - 199 mg/dL [facility] Comment: Interpretive Data Fasting glucose >/= 126 [...] 2022. Calcium 8.7 8.5 - 10.3 mg/dL [facility] Blood 12/13/2023 3:08 AM CDT 12/13/2023 3:29 AM CDT us Alia Ibarra MD LAB BLOOD ORDERABLES Final Resul t [facility] [place] [address] * eGFR (12/13/2023 2:11 AM CDT) eGFR [...] ORDERABLES F inal Result Performing Organization Address [facility] Co de Phone Number [facility] Department [place] [employer] [place] [address] * (ABNORMAL) Phosphorus (12/13/2023 2:11 AM CDT) Phosphorus, pl 1.6(L) 2.3 - 4.5 mg/dL Blood 12/13/2023 2:11 AM CDT 12/13/2023 2:25 AM CDT Kevin Corrigan MD LAB BLOOD ORDERABLES F inal Result Performing Organization Address [facility] Co de Phone Number [facility] [place] [address] * Magnesium (12/13/2023 2:11 AM CDT) Magnesium 2.0 1.4 - 2.5 mg/dL Blood 12/13/2023 2:11 AM CDT 12/13/2023 2:25 AM CDT Kevin Corrigan MD LAB BLOOD ORDERABLES F inal Result Performing Organization Address [facility]/ZIP Co de Phone Number [facility] [place] [address] * (ABNORMAL) Basic metabolic panel (12/13/2023 2:11 AM CDT) [facility] Sodium 133(L) 135 - 145 mmol/L Potassium, pl 5.3(H) 3.3 - 4.9 mmol/L [facility] Chloride 102 97 - 110 mmol/L [facility] CO2 29 22 - 32 mmol/L [facility] [place] Anion gap 2 2 - 15 mmol/L [facility] [place] BUN 29(H) 6 - 25 mg/dL [facility] [place] Creatinine 0.63 0.60 - 1.10 mg/dL [facility] [place] Glucose 166 70 - 199 mg/dL [facility] [place] Comment: Interpretive Data Fasting glucose >/= 126 [...] 2022. Calcium 8.7 8.5 - 10.3 mg/dL [facility] Blood 12/13/2023 2:11 AM CDT 12/13/2023 2:25 AM CDT Kevin Corrigan MD LAB BLOOD ORDERABLES F inal Result Performing Organization Address [facility]/ZIP Co de Phone Number [facility] [place] [address] * CBC without differential (12/13/2023 2:11 AM CDT) WBC See Comment 3.8 - 9.9 Comment: Credited, collection error. Likely diluted specimen. Telephone report made to: Ren Petersen RN on 12/13/2023 02:46:51 CDT by PRAKASH . Hgb See Comment 11.9 - 15.5 [facility] Comment: Critical result called to and read back by REN PETERSEN RN on 12 13 2023 at 0242 to Yovanny Savage. Credited, collection error. Likely diluted specimen. Telephone report made to: Ren Petersen RN on 12/13/2023 02:46:51 CDT by PRAKASH . Hct See Comment 35.6 - 45.5 [facility] Comment: Credited, collection error. Likely diluted specimen. Telephone report made to: Ren Petersen RN on 12/13/2023 02:46:51 CDT by PRAKASH . Plt See Comment 150 - 400 [facility] Comment: Credited, collection error. Likely diluted specimen. Telephone report made to: Ren Petersen RN on 12/13/2023 02:46:51 CDT by PRAKASH . MPV See Comment 9.1 - 12.3 [facility] Comment: Credited, collection error. Likely diluted specimen. Telephone report made to: Ren Petersen RN on 12/13/2023 02:46:51 CDT by PRAKASH . RBC See Comment 3.90 - 5.20 [facility] Comment: Credited, collection error. Likely diluted specimen. Telephone report made to: Ren Petersen RN on 12/13/2023 02:46:51 CDT by PRAKASH . MCV See Comment 81.3 - 96.4 [facility] Comment: Credited, collection error. Likely [...] CV See Comment 11.1 - 14.9 [facility] Comment: Credited, collection error. Likely [...] dited Result - Final Performing Organization Address City/[facility]/ZIP Co de Phone Number [facility] Department [place] [employer] [place] [address] * (ABNORMAL) POCT glucose (12/12/2023 10:56 PM CDT) Glucose, POC 204(H) 70 - 199 mg/dL Blood 12/12/2023 10:5 6 PM CDT 12/12/2023 10:56 PM CDT Kevin Corrigan MD LAB POCT ORDERABLES - DEVICE Final Result [facility] [place] [employer] [place] [address] * (ABNORMAL) POCT glucose (12/12/2023 7:51 PM CDT) Glucose, POC 225(H) 70 - 199 mg/dL Blood 12/12/2023 7:51 PM CDT 12/12/2023 7:51 PM CDT Kevin Corrigan MD LAB POCT ORDERABLES - DEVICE Final Result Performing Organization Address [facility] Co de Phone Number [facility] [place] [place] [address] * (ABNORMAL) POCT glucose (12/12/2023 4:42 PM CDT) [facility] Glucose, POC 263(H) 70 - 199 mg/dL Blood 12/12/2023 4:42 PM CDT 12/12/2023 4:42 PM CDT Kevin Corrigan MD LAB POCT ORDERABLES - DEVICE Final Result Performing Organization Address [facility] Co de Phone Number [facility] [place] [address] * Potassium (12/12/2023 2:30 PM CDT) [facility] Potassium, pl 4.9 3.3 - 4.9 mmol/L Blood 12/12/2023 2:30 PM CDT 12/12/2023 2:50 PM CDT Narrative [facility] - 12/12/2023 3:12 PM CDT Provider to discontinue after two normal results. Parris Soto NP LAB BLOOD ORDERABLES Final Result Performing Organization Address [facility] Co de Phone Number [facility] [employer] [place] [address] * (ABNORMAL) POCT glucose (12/12/2023 12:22 PM CDT) Glucose, POC 212(H) 70 - 199 mg/dL Blood 12/12/2023 12:2 2 PM CDT 12/12/2023 12:22 PM CDT Kevin Corrigan MD LAB POCT ORDERABLES - DEVICE Final Result Performing Organization Address [facility] de Phone Number [facility] [place] [place] [address] * Potassium, whole blood (12/12/2023 10:50 AM CDT) Potassium, bld 4.7 3.3 - 4.9 mmol/L Blood 12/12/2023 10:5 0 AM CDT 12/12/2023 10:57 AM CDT Parris Soto NP LAB BLOOD ORDERABLES Final Result Performing Organization Address [facility] de Phone Number [facility] [place] [employer] [place] [address] * Sodium, urine, random (12/12/2023 10:50 AM CDT) Sodium, ur 32 mmol/L Comment: Interpretive Data No reference range established. Current interpretive data was last revised 2018. Urine (Urine, Clean Catch) 12/12/2023 10:50 AM CDT 12/12/2023 10:57 AM CDT Parris Soto NP LAB URINE ORDERABLES Final Result Performing Organization Address [facility] de Phone Number [facility] [employer] [place] [address] * Potassium, urine, random (12/12/2023 10:50 AM CDT) Potassium conc, ur 37.5 mmol/L Comment: Interpretive Data No reference range established. Current interpretive data was last revised 2018. Urine (Urine, Clean Catch) 12/12/2023 10:50 AM CDT 12/12/2023 10:57 AM CDT Parris Soto NP LAB URINE ORDERABLES Final Result Performing Organization Address [facility] Co de Phone Number [facility] [place] [address] * Chloride, urine, random (12/12/2023 10:50 AM CDT) Chloride, ur 39 mmol/L Comment: Interpretive Data No reference range established. Current interpretive data was last revised 2018. Urine (Urine, Clean Catch) 12/12/2023 10:50 AM CDT 12/12/2023 10:57 AM CDT Parris Soto NP LAB URINE ORDERABLES Final Result Performing Organization Address [facility] Co de Phone Number [facility] [place] [address] * (ABNORMAL) POCT glucose (12/12/2023 10:36 AM CDT) Glucose, POC 261(H) 70 - 199 mg/dL Blood 12/12/2023 10:3 6 AM CDT 12/12/2023 10:36 AM CDT Kevin Corrigan MD LAB POCT ORDERABLES - DEVICE Final Result Performing Organization Address [facility] Co de Phone Number [facility] [employer] [place] [address] * (ABNORMAL) POCT glucose (12/12/2023 9:26 AM CDT) Glucose, POC 273(H) 70 - 199 mg/dL Blood 12/12/2023 9:26 AM CDT 12/12/2023 9:26 AM CDT Kevin Corrigan MD LAB POCT ORDERABLES - DEVICE Final Result Performing Organization Address [facility] Co de Phone Number [facility] [place] [address] * (ABNORMAL) POCT glucose (12/12/2023 9:25 AM CDT) Glucose, POC 318(H) 70 - 199 mg/dL Blood 12/12/2023 9:25 AM CDT 12/12/2023 9:25 AM CDT Kevin Corrigan MD LAB POCT ORDERABLES - DEVICE Final Result Performing Organization Address [facility] Co de Phone Number [facility] [place] [address] * POCT glucose (12/12/2023 7:41 AM CDT) Glucose, POC 175 70 - 199 mg/dL Blood 12/12/2023 7:41 AM CDT 12/12/2023 7:41 AM CDT Kevin Corrigan MD LAB POCT ORDERABLES - DEVICE Final Result Performing Organization Address [facility] Co de Phone Number [facility] [employer] [place] [address] * (ABNORMAL) Potassium (12/12/2023 7:27 AM CDT) Potassium, pl 5.1(H) 3.3 - 4.9 mmol/L Blood 12/12/2023 7:27 AM CDT 12/12/2023 7:36 AM CDT Narrative [facility] 12/12/2023 7:54 AM CDT Provider to discontinue after two normal results. us Parris Soto NP LAB BLOOD ORDERABLES Final Result [facility] [place] [address] * ECG 12 lead (12/12/2023 5:53 AM CDT) Pathologist [facility] Ventricular Rate EKG/Min 109 BPM [facility] Atrial Rate 250 BPM [facility] QRS-Interval (MSEC) 98 ms [facility] QT-Interval (MSEC) 326 ms [facility] QTc 439 ms [facility] R [place] 48 degrees [facility] T [place] -10 degrees [facility] Diagnosis Atrial fibrillation with rapid ventricular response Abnormal ECG When compared with ECG of 09-DEC-2023 00:15, Incomplete right bundle branch block is no longer Present Criteria for Inferior infarct are no longer Present Confirmed by GREGORY CLINE M.D ([id number]) on 12/12/2023 5:25:07 PM [facility] 12/12/2023 5:53 AM CDT 12/12/2023 5:25 PM CDT us Parris Soto GLUE SPREADER ECG ORDERABLES Final Resu lt [facility] * eGFR (12/12/2023 4:06 AM CDT) Pathologist [...] MD LAB BLOOD ORDERABLES F inal Result [facility] [place] [address] * (ABNORMAL) Basic metabolic panel (12/12/2023 4:06 AM CDT) [facility] Signature Sodium 136 135 - 145 mmol/L Potassium, pl 5.8(H) 3.3 - 4.9 mmol/L [facility] Comment:Hemolyzed; Potassium value may be falsely elevated by as much as 0.6-1.0 mmol/L. Suggest redraw and reanalysis. Chloride 105 97 - 110 mmol/L [facility] CO2 27 22 - 32 mmol/L [facility] Anion gap 4 2 - 15 mmol/L [facility] [place] BUN 29(H) 6 - 25 mg/dL [facility] Creatinine 0.54(L) 0.60 - 1.10 mg/dL [facility] [place] Glucose 181 70 - 199 mg/dL [facility] Comment: Interpretive Data Fasting glucose >/= 126 [...] 2022. Calcium 8.5 8.5 - 10.3 mg/dL [facility] Blood 12/12/2023 4:06 AM CDT 12/12/2023 4:26 AM CDT Kevin Corrigan MD LAB BLOOD ORDERABLES F inal Result Performing Organization Address City/[facility]/ZIP Co de Phone Number [facility] Department [place] [employer] [place] [address] * (ABNORMAL) POCT glucose (12/12/2023 4:01 AM CDT) Glucose, POC 206(H) 70 - 199 mg/dL Blood 12/12/2023 4:01 AM CDT 12/12/2023 4:01 AM CDT Kevin Corrigan MD LAB POCT ORDERABLES - DEVICE Final Result Performing Organization Address [facility] Co de Phone Number [facility] Department [place] [employer] [place] [address] * POCT glucose (12/11/2023 11:47 PM CDT) Glucose, POC 193 70 - 199 mg/dL Blood 12/11/2023 11:4 7 PM CDT 12/11/2023 11:47 PM CDT Kevin Corrigan MD LAB POCT ORDERABLES - DEVICE Final Result Performing Organization Address [facility] Co de Phone Number [facility] [place] [address] * eGFR (12/11/2023 9:47 PM CDT) eGFR [...] LAB BLOOD ORDERABLES F inal Result [facility] [place] [address] * (ABNORMAL) Phosphorus (12/11/2023 9:47 PM CDT) Phosphorus, pl 1.4(L) 2.3 - 4.5 mg/dL Blood 12/11/2023 9:47 PM CDT 12/11/2023 10:15 PM CDT Kevin Corrigan MD LAB BLOOD ORDERABLES F inal Result Performing Organization Address [facility] Co de Phone Number [facility] [place] [place] [address] * Magnesium (12/11/2023 9:47 PM CDT) Pathologist [facility] Magnesium 1.9 1.4 - 2.5 mg/dL Blood 12/11/2023 9:47 PM CDT 12/11/2023 10:15 PM CDT Result [facility] Kevin Corrigan MD LAB BLOOD ORDERABLES F inal Result Performing Organization Address [facility] de Phone Number [facility] [place] [address] * (ABNORMAL) Basic metabolic panel (12/11/2023 9:47 PM CDT) [facility] Sodium 135 135 - 145 mmol/L Potassium, pl 5.4(H) 3.3 - 4.9 mmol/L [facility] Comment:Hemolyzed; Potassium value may be falsely elevated by as much as 0.6-1.0 mmol/L. Suggest redraw and reanalysis. Chloride 104 97 - 110 mmol/L [facility] CO2 26 22 - 32 mmol/L [facility] Anion gap 5 2 - 15 mmol/L [facility] BUN 27(H) 6 - 25 mg/dL [facility] Creatinine 0.55(L) 0.60 - 1.10 mg/dL [facility] Glucose 188 70 - 199 mg/dL [facility] Comment: Interpretive Data Fasting glucose >/= 126 [...] 2022. Calcium 8.2(L) 8.5 - 10.3 mg/dL [facility] Blood 12/11/2023 9:47 PM CDT 12/11/2023 10:15 PM CDT Kevin Corrigan MD LAB BLOOD ORDERABLES F inal Result [facility] [place] [address] * (ABNORMAL) CBC without differential (12/11/2023 9:47 PM CDT) [facility] WBC 6.7 3.8 - 9.9 K/cumm Hgb 7.9(L) 11.9 - 15.5 g/dL [facility] Hct 24.2(L) 35.6 - 45.5 % [facility] Plt 183 150 - 400 K/cumm [facility] MPV 10.8 9.1 - 12.3 fL [facility] RBC 2.52(L) 3.90 - 5.20 M/cumm [facility] MCV 96.0 81.3 - 96.4 fL [facility] MCH 31.3 27.1 - 33.3 pg [facility] MCHC 32.6 32.3 - 35.7 g/dL [facility] RDW CV 15.5(H) 11.1 - 14.9 % [facility] RDW SD 54.4(H) 35.7 - 48.1 fL [facility] NRBC abs 0.00 0.00 - 0.01 K/cumm [facility] Blood 12/11/2023 9:47 PM CDT 12/11/2023 10:15 PM CDT Kevin Corrigan MD LAB BLOOD ORDERABLES F inal Result [facility] [employer] [place] [address] * POCT glucose (12/11/2023 8:51 PM CDT) Glucose, POC 164 70 - 199 mg/dL Blood 12/11/2023 8:51 PM CDT 12/11/2023 8:51 PM CDT Kevin Corrigan MD LAB POCT ORDERABLES - DEVICE Final Result Performing Organization Address [facility] Co de Phone Number [facility] [employer] [place] [address] * (ABNORMAL) POCT glucose (12/11/2023 5:02 PM CDT) Glucose, POC 212(H) 70 - 199 mg/dL Blood 12/11/2023 5:02 PM CDT 12/11/2023 5:02 PM CDT Kevin Corrigan MD LAB POCT ORDERABLES - DEVICE Final Result Performing Organization Address [facility] Co de Phone Number [facility] [place] [employer] [place] [address] * POCT glucose (12/11/2023 12:20 PM CDT) Glucose, POC 161 70 - 199 mg/dL Blood 12/11/2023 12:2 0 PM CDT 12/11/2023 12:20 PM CDT Kevin Corrigan MD LAB POCT ORDERABLES - DEVICE Final Result Performing Organization Address City/[facility]/ZIP Co de Phone Number [facility] [place] [employer] [place] [address] * TRANSTHORACIC ECHO (TTE) COMPLETE W DOPPLER/CF W CONTRAST (12/11/2023 10:10 AM CDT) LV EF 61 % CARDIOREPORT Anatomical Region Laterality Modality Ultrasound 12/11/2023 9:00 AM CDT Narrative 12/11/2023 1:11 PM CDT Patient name: Prema Pearce Date of test: 12/11/2023 Type of test: TTE w/Doppler [facility] #: 0 Date of : 1940 (F) Customer Consulting Manager: Emile Gtz RDCS Referring Physician: KEVIN CORRIGAN MD Contrast Agent: 0.9 ml Optison Administered, (2.1 ml wasted). Contrast Administered by: Supervised/Interpreted by: Frank Horn MD Diagnosis: Location: [facility] Reason for test: Hypotension MV Structure: Normal, [...] 2=Hypo 3=Akinetic 4=Dyskin./Aneurysm 0=Not visualized) Parasternal Long [place]:MAS=1 BAS=1 MIL=1 NIGHAT=1 Parasternal Short [place]:MAS=1 MIS=1 MN=1 MIL=1 MAL=1 MA=1 Apical 4 Chambers:=1 MIS=1 BIS=1 BAL=1 MAL=1 AL=1 AC=1 Apical 2 Chambers:AI=1 MN=1 BI=1 BA=1 MA=1 AA=1 AC=1 LV Global Longitudinal Strain: RV Global Longitudinal Strain: LV Function: Normal LV Ejection Fraction, ??(EF=54-74%) RV Function: Normal Septal Motion: Normal Pericardial Effusion: none seen Atrial Septum: Normal DOPPLER/COLOR FLOW DOPPLER RESULTS: Diastolic Function: indeterminate Tricuspid Valve: mild TV regurgitation Pulmonic Valve: Mild PA AV Regurgitation: Trace AR AV Stenosis: moderate AV Area: 1.0 cm2 AV Pressure Gradient (mmHg): Mean: 17, Peak:29 MV Regurgitation: Mild MR MV Stenosis: mild MS MV Area: ??cm2 MV Pressure Gradient (mmHg): Mean: 4 MV ERO: ??cm Regurg. Vol.: ??ml/beat Regurg. Frac.: ??% PA Pressure: ??mmHg DOPPLER/COLOR FOLOW DOPPLER COMMENTS: Trace AR, Mild MR, moderate , mild MS, mild TV regurgitation, Mild PA. Diastolic function: indeterminate CONTRAST: 0.9 ml Optison [...] Hg, and mild MR. ??Mild TR and PA. Unable to assess PA pressure. ??No pericardial effusion. ??No vegetations seen. ??Compared with 07/27/23, no significant change. Confirmed on ??12/11/2023 - 13:11:51 by Frank Horn MD By signing this report, the attending manager technical certifies that he or she has personally supervised and interpreted the echocardiogram and has reviewed and or edited and agrees with the written comments contained within the report. Procedure Note Frank Horn MD - 12/11/2023 Patient name: Prema Pearce Date of test: 12/11/2023 Type of test: [facility] w/[facility] #: 0 Date of : 1940 (F) Customer Consulting Manager: Emile Gtz YSABEL Referring Physician: KEVIN CORRIGAN MD Contrast Agent: 0.9 ml Optison Administered, (2.1 ml wasted). Contrast Administered by: Supervised/Interpreted by: Frank Horn MD Diagnosis: Location: [facility] Reason for test: Hypotension MV Structure: Normal, [...] 2=Hypo 3=Akinetic 4=Dyskin./Aneurysm 0=Not visualized) Parasternal Long [place]:MAS=1 BAS=1 MIL=1 NIGHAT=1 Parasternal Short [place]:MAS=1 MIS=1 MN=1 MIL=1 MAL=1 MA=1 Apical 4 Chambers:=1 MIS=1 BIS=1 BAL=1 MAL=1 AL=1 AC=1 Apical 2 Chambers:AI=1 MN=1 BI=1 BA=1 MA=1 AA=1 AC=1 LV Global Longitudinal Strain: RV Global Longitudinal Strain: LV Function: Normal LV Ejection Fraction, (EF=54-74%) RV Function: Normal Septal Motion: Normal Pericardial Effusion: none seen Atrial Septum: Normal DOPPLER/COLOR FLOW DOPPLER RESULTS: Diastolic Function: indeterminate Tricuspid Valve: mild TV regurgitation Pulmonic Valve: Mild PA AV Regurgitation: Trace AR AV Stenosis: moderate AV Area: 1.0 cm2 AV Pressure Gradient (mmHg): Mean: 17, Peak:29 MV Regurgitation: Mild MR MV Stenosis: mild MS MV Area: cm2 MV Pressure Gradient (mmHg): Mean: 4 MV ERO: cm Regurg. Vol.: ml/beat Regurg. Frac.: % PA Pressure: mmHg DOPPLER/COLOR FOLOW DOPPLER COMMENTS: Trace AR, Mild MR, moderate , mild MS, mild TV regurgitation, Mild PA. Diastolic function: indeterminate CONTRAST: 0.9 ml Optison [...] Hg, and mild MR. Mild TR and PA. Unable to assess PA pressure. No pericardial effusion. No vegetations seen. Compared with 07/27/23, no significant change. Confirmed on 12/11/2023 - 13:11:51 by Frank Horn MD By signing this report, the attending manager technical certifies that he or she has personally [...] - DEVICE Final Result Performing Organization Address [facility] de Phone Number [facility] [place] [address] * POCT glucose (12/11/2023 3:44 AM CDT) Glucose, POC 185 70 - 199 mg/dL Blood 12/11/2023 3:44 AM CDT 12/11/2023 3:44 AM CDT Kevin Corrigan MD LAB POCT ORDERABLES - DEVICE Final Result Performing Organization Address [facility] de Phone Number [facility] [place] [employer] [place] [address] * XR Abdomen Ap 1 Vw (12/11/2023 [...] - DEVICE Final Result Performing Organization Address [facility] Co de Phone Number MINDI SMART [facility] Department [place] [employer] [place] [address] * eGFR (12/10/2023 9:37 PM CDT) eGFR [...] ORDERABLES F inal Result Performing Organization Address [facility] Co de Phone Number MINDI SMART [facility] Department [place] [employer] [place] [address] * (ABNORMAL) Phosphorus (12/10/2023 9:37 PM CDT) [facility] Phosphorus, pl 1.8(L) 2.3 - 4.5 mg/dL Blood 12/10/2023 9:37 PM CDT 12/10/2023 9:49 PM CDT Kevin Corrigan MD LAB BLOOD ORDERABLES F inal Result [facility] [place] [address] * Magnesium (12/10/2023 9:37 PM CDT) [facility] Magnesium 2.2 1.4 - 2.5 mg/dL Blood 12/10/2023 9:37 PM CDT 12/10/2023 9:49 PM CDT Kevin Corrigan MD LAB BLOOD ORDERABLES F inal Result Performing Organization Address City/[facility] Co de Phone Number [facility] [place] [employer] [place] [address] * (ABNORMAL) Basic metabolic panel (12/10/2023 9:37 PM CDT) [facility] Sodium 135 135 - 145 mmol/L Potassium, pl 4.6 3.3 - 4.9 mmol/L [facility] Chloride 104 97 - 110 mmol/L [facility] Comment:Repeated and Verifie d CO2 25 22 - 32 mmol/L [facility] Anion gap 6 2 - 15 mmol/L [facility] BUN 32(H) 6 - 25 mg/dL [facility] Creatinine 0.79 0.60 - 1.10 mg/dL [facility] Glucose 178 70 - 199 mg/dL [facility] Comment: Interpretive Data Fasting glucose >/= 126 [...] 2022. Calcium 8.0(L) 8.5 - 10.3 mg/dL [facility] Blood 12/10/2023 9:37 PM CDT 12/10/2023 9:49 PM CDT us Kevin Corrigan MD LAB BLOOD ORDERABLES F inal Result [facility] [place] [address] * (ABNORMAL) CBC without differential (12/10/2023 9:37 PM CDT) Pathologist [facility] WBC 5.6 3.8 - 9.9 K/cumm Hgb 8.5(L) 11.9 - 15.5 g/dL [facility] Hct 25.8(L) 35.6 - 45.5 % [facility] Plt 143(L) 150 - 400 K/cumm [facility] MPV 10.3 9.1 - 12.3 fL [facility] RBC 2.66(L) 3.90 - 5.20 M/cumm [facility] MCV 97.0(H) 81.3 - 96.4 fL [facility] MCH 32.0 27.1 - 33.3 pg [facility] MCHC 32.9 32.3 - 35.7 g/dL [facility] RDW CV 15.8(H) 11.1 - 14.9 % [facility] RDW SD 55.2(H) 35.7 - 48.1 fL [facility] NRBC abs 0.00 0.00 - 0.01 K/cumm [facility] Blood 12/10/2023 9:37 PM CDT 12/10/2023 9:49 PM CDT us Kevin Corrigan MD LAB BLOOD ORDERABLES F inal Result [facility] [place] [address] * (ABNORMAL) POCT glucose (12/10/2023 7:59 PM CDT) Glucose, POC 210(H) 70 - 199 mg/dL Comment:Glu2: RN/MD Notified Glucose comment 1 Glu2: RN/MD Notified [facility] Blood 12/10/2023 7:59 PM CDT 12/10/2023 7:59 PM CDT us Kevin Corrigan MD LAB POCT ORDERABLES - DEVICE Final Result Performing Organization Address [facility] Co de Phone Number [facility] [place] [address] * (ABNORMAL) POCT glucose (12/10/2023 4:36 PM CDT) Glucose, POC 200(H) 70 - 199 mg/dL Blood 12/10/2023 4:36 PM CDT 12/10/2023 4:36 PM CDT us Kevin Corrigan MD LAB POCT ORDERABLES - DEVICE Final Result Performing Organization Address City/[facility]/ZIP Co de Phone Number [facility] [place] [address] * Transfuse RBC (12/10/2023 2:10 PM CDT) Blood us Emy Sanchez NP BLOOD TRANSFUSION ORDNarciso CAMPOS Edited Result - Final Performing Organization Address City/[facility]/ZIP Co de Phone Number [facility] [place] [address] * Transfuse RBC: 1 Units (12/10/2023 2:10 PM CDT) Blood Emy Sanchez GLUE SPREADER BLOOD TRANSFUSION ORDNarciso CAMPOS Edited Result - Final * Troponin I high-sensitivity (12/10/2023 1:04 PM CDT) Pathologist [facility] Trop I hs 8 <=17 ng/L Comment: Interpretive Data For further hscTnI resources including the diagnostic algorithm and an aid in interpretation, copy and paste this link: [email or web address] Current Interpretive Data last revised 2019. Blood 12/10/2023 1:04 PM CDT 12/10/2023 1:28 PM CDT Kevin Corrigan MD LAB BLOOD ORDERABLES F inal Result [facility] [place] [address] * (ABNORMAL) Pro B-type natriuretic peptide (12/10/2023 1:04 PM CDT) [facility] NT-proBNP 815(H) <=450 pg/mL Comment: Interpretive Comments: [...] MD LAB BLOOD ORDERABLES F inal Result [facility] [place] [address] * POCT lactate (12/10/2023 12:44 PM CDT) Lactate POC i-STAT 1.5 0.7 - 2.2 mmol/L Blood 12/10/2023 12:4 4 PM CDT 12/10/2023 12:44 PM CDT us Kevin Corrigan MD LAB POCT ORDERABLES - DEVICE Final Result Performing Organization Address [facility]/ZIP Co de Phone Number [facility] [place] [address] * Prepare RBC: 1 Units (12/10/2023 12:24 PM CDT) [facility] Product code [id number] Unit Number [id number] [facility] Product Blood Type OPOS [facility] Dispense Status PRESUMED TRANSFUSED [facility] Blood 12/10/2023 12:2 4 PM CDT 12/10/2023 12:23 PM CDT Narrative [facility] - 12/11/2023 10:16 AM CDT Are special requirements needed? (All products are leukoreduced and CMV- safe)- >No Donor Source->[employer] Date required:-[id number] LRRBC # of Igwre-3-Oipad Reasons:-Active bleeding, Hgb <8 g/dL} Emy Sanchez NP BLOOD BANK PRODUCT ORD ERABLES Final Result Performing Organization Address [facility] Co de Phone Number [facility] Department [place] [address] * (ABNORMAL) CBC without differential (12/10/2023 12:17 PM CDT) [facility] WBC 5.8 3.8 - 9.9 K/cumm Hgb 8.4(L) 11.9 - 15.5 g/dL [facility] Hct 25.8(L) 35.6 - 45.5 % [facility] Plt 162 150 - 400 K/cumm [facility] MPV 9.8 9.1 - 12.3 fL [facility] RBC 2.59(L) 3.90 - 5.20 M/cumm [facility] MCV 99.6(H) 81.3 - 96.4 fL [facility] MCH 32.4 27.1 - 33.3 pg [facility] MCHC 32.6 32.3 - 35.7 g/dL [facility] RDW CV 14.3 11.1 - 14.9 % [facility] RDW SD 51.9(H) 35.7 - 48.1 fL [facility] NRBC abs 0.00 0.00 - 0.01 K/cumm [facility] Blood 12/10/2023 12:1 7 PM CDT 12/10/2023 12:38 PM CDT Emy Sanchez GLUE SPREADER LAB BLOOD ORDERABLES F inal Result Performing Organization Address City/[facility]/ZIP Co de Phone Number [facility] [place] [address] * (ABNORMAL) POCT glucose (12/10/2023 12:13 PM CDT) Glucose, POC 237(H) 70 - 199 mg/dL Blood 12/10/2023 12:1 3 PM CDT 12/10/2023 12:13 PM CDT us Kevin Corrigan MD LAB POCT ORDERABLES - DEVICE Final Result Performing Organization Address [facility] Co de Phone Number [facility] Department [place] [employer] [place] [address] * CT Stroke Head WO Contrast (12/10/2023 [...] 7:39 AM CDT 12/10/2023 7:39 AM CDT us Kevin Corrigan MD LAB POCT ORDERABLES - DEVICE Final Result MINDI SMART [facility] Department [place] [address] * POCT glucose (12/10/2023 4:39 AM CDT) Glucose, POC 175 70 - 199 mg/dL Blood 12/10/2023 4:39 AM CDT 12/10/2023 4:39 AM CDT Kevin Corrigan MD LAB POCT ORDERABLES - DEVICE Final Result Performing Organization Address [facility] Co de Phone Number MINDI [facility] [place] [address] * POCT glucose (12/09/2023 11:50 PM CDT) Glucose, POC 162 70 - 199 mg/dL Blood 12/09/2023 11:5 0 PM CDT 12/09/2023 11:50 PM CDT Result [facility] Kevin Corrigan MD LAB POCT ORDERABLES - DEVICE Final Result Performing Organization Address [facility] Phone Number MINDI [facility] [place] [address] * eGFR (12/09/2023 10:24 PM CDT) eGFR [...] ORDERABLES F inal Result Performing Organization Address City/[facility]/ZIP Co de Phone Number [facility] [employer] [place] [address] * Phosphorus (12/09/2023 10:24 PM CDT) Phosphorus, pl 2.7 2.3 - 4.5 mg/dL Blood 12/09/2023 10:2 4 PM CDT 12/09/2023 10:37 PM CDT Kevin Corrigan MD LAB BLOOD ORDERABLES F inal Result Performing Organization Address [facility] Co de Phone Number [facility] Department [place] [address] * (ABNORMAL) Magnesium (12/09/2023 10:24 PM CDT) Magnesium 1.2(L) 1.4 - 2.5 mg/dL Blood 12/09/2023 10:2 4 PM CDT 12/09/2023 10:37 PM CDT Kevin Corrigan MD LAB BLOOD ORDERABLES F inal Result Performing Organization Address City/[facility] Co de Phone Number [facility] Department [place] [address] * (ABNORMAL) Basic metabolic panel (12/09/2023 10:24 PM CDT) [facility] Sodium 140 135 - 145 mmol/L Potassium, pl 3.8 3.3 - 4.9 mmol/L [facility] Chloride 112(H) 97 - 110 mmol/L [facility] CO2 24 22 - 32 mmol/L [facility] Anion gap 4 2 - 15 mmol/L [facility] BUN 21 6 - 25 mg/dL [facility] Creatinine 0.71 0.60 - 1.10 mg/dL [facility] Glucose 157 70 - 199 mg/dL [facility] Comment: Interpretive Data Fasting glucose >/= 126 [...] 2022. Calcium 7.0(L) 8.5 - 10.3 mg/dL [facility] Comment:Reviewed Blood 12/09/2023 10:2 4 PM CDT 12/09/2023 10:37 PM CDT Kevin Corrigan MD LAB BLOOD ORDERABLES F inal Result [facility] [place] [address] * (ABNORMAL) CBC without differential (12/09/2023 10:24 PM CDT) [facility] WBC 8.1 3.8 - 9.9 K/cumm Hgb 8.8(L) 11.9 - 15.5 g/dL [facility] Hct 27.8(L) 35.6 - 45.5 % [facility] Plt 164 150 - 400 K/cumm [facility] MPV 9.6 9.1 - 12.3 fL [facility] RBC 2.78(L) 3.90 - 5.20 M/cumm [facility] MCV 100.0(H) 81.3 - 96.4 fL [facility] MCH 31.7 27.1 - 33.3 pg [facility] MCHC 31.7(L) 32.3 - 35.7 g/dL [facility] RDW CV 14.1 11.1 - 14.9 % [facility] RDW SD 51.1(H) 35.7 - 48.1 fL [facility] NRBC abs 0.00 0.00 - 0.01 K/cumm [facility] Blood 12/09/2023 10:2 4 PM CDT 12/09/2023 10:37 PM CDT Kevin Corrigan MD LAB BLOOD ORDERABLES F inal Result Performing Organization Address [facility] de Phone Number [facility] [place] [address] * (ABNORMAL) Hemoglobin A1c (12/09/2023 10:24 PM CDT) [facility] Hgb A1C 6.5(H) 4.0 - 5.6 % Estimated Average Glucose 140 mg/dL [facility] Comment: The ADA recommends reporting an estimated [...] ORDERABLES F inal Result Performing Organization Address [facility]/ZIP Co de Phone Number [facility] [place] [address] * XR Femur Left 2 or More [...] - DEVICE Final Result Performing Organization Address [facility] Co de Phone Number [facility] [place] [address] * [place] Fluoroscopy < 1 Hour (12/09/2023 5:04 PM CDT) Narrative [facility] - 12/09/2023 5:05 PM CDT The images from this study are not interpreted by Radiology. ??Please refer to the physician's procedure / OR operative note. Homer Villalobos MD IMG FLUOROSCOPY PROCEDURES Final Result Performing Organization Address [facility] de Phone Number [facility] * POCT glucose (12/09/2023 4:20 PM CDT) Glucose, POC 111 70 - 199 mg/dL Blood 12/09/2023 4:20 PM CDT 12/09/2023 4:20 PM CDT Kevin Corrigan MD LAB POCT ORDERABLES - DEVICE Final Result Performing Organization Address [facility] de Phone Number [facility] [place] [address] * POCT glucose (12/09/2023 2:01 PM CDT) Glucose, POC 128 70 - 199 mg/dL Blood 12/09/2023 2:01 PM CDT 12/09/2023 2:01 PM CDT Kevin Corrigan MD LAB POCT ORDERABLES - DEVICE Final Result Performing Organization Address [facility]/ZIP Co de Phone Number [facility] [place] [address] * POCT glucose (12/09/2023 11:36 AM CDT) Glucose, POC 149 70 - 199 mg/dL Blood 12/09/2023 11:3 6 AM CDT 12/09/2023 11:36 AM CDT Kevin Corrigan MD LAB POCT ORDERABLES - DEVICE Final Result Performing Organization Address City/State/[facility] [place] [address] * POCT glucose (12/09/2023 8:34 AM CDT) Glucose, POC 119 70 - 199 mg/dL Blood 12/09/2023 8:34 AM CDT 12/09/2023 8:34 AM CDT Kevin Corrigan MD LAB POCT ORDERABLES - DEVICE Final Result Performing Organization Address City/[facility] Co de Phone Number [facility] [place] [address] * (ABNORMAL) Urinalysis, microscopic only (12/09/2023 5:01 AM CDT) [facility] WBC, ur 6-10(A) 0 - 5 /HPF RBC, ur 3-5(A) 0 - 2 /HPF [facility] Epithelial cells, squamous, ur 1-5 0 - 5 /HPF [facility] Bacteria, ur 3+(A) [facility] Mucous, ur Present(A) [facility] Culture Reflex Comment Reflex conditions for urine culture (WBC >10) not met. [facility] Urine 12/09/2023 5:01 AM CDT 12/09/2023 5:07 AM CDT Whitney Lovelace MD LAB URINE ORDERABLES Fi nal Result [facility] [place] [address] * (ABNORMAL) Urinalysis reflex to microscopic and culture Urine (12/09/2023 5:01 AM CDT) Color, ur Yellow Yellow Clarity, ur Clear Clear [facility] Specific gravity, ur 1.025 1.003 - 1.030 [facility] pH, urine 5.5 [facility] Comment: Interpretive Data ? Urine pH is affected by diet, medications, systemic acid-base disturbances, and renal tubular function. ??pH may affect urinary stone formation. ??For example, urine pH below 6.0 may help reduce the tendency for calcium phosphate stones and pH greater than 6.0 may reduce the tendency for uric acid stone formation. Source: [facility] Current Interpretive Data was last revised on 2017 Protein, ur ql Trace Negative [facility] Glucose, ur ql Negative Negative [facility] Ketones, ur Negative Negative [facility] Bilirubin, ur Negative Negative [facility] Blood, ur Negative Negative [facility] Urobilinogen, ur <2.0 <2.0 mg/dL [facility] Nitrite, ur Positive(A) Negative [facility] Leukocyte esterase, ur Trace(A) Negative [facility] UA reflex comment Reflex to microscopic UA will be performed. [facility] Urine 12/09/2023 5:01 AM CDT 12/09/2023 5:07 AM CDT Whitney Lovelace MD LAB MICROBIOLOGY - GENE RAL ORDERABLES Final Result Performing Organization Address City/[facility]/ZIP Co de Phone Number MINDI [facility] [place] [address] * ECG 12 lead (12/09/2023 12:15 AM CDT) Ventricular Rate EKG/Min 85 BPM [facility] QRS-Interval (MSEC) 102 ms [facility] QT-Interval (MSEC) 366 ms [facility] QTc 435 ms [facility] R [place] 31 degrees [facility] T [place] -8 degrees [facility] Diagnosis 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 Incomplete right bundle branch block Inferior infarct , age undetermined Abnormal ECG When compared with ECG of 07-AUG-2023 14:22, Incomplete right bundle branch block is now Present Confirmed by MARY NAGEL M.D ([id number]) on 12/10/2023 10:59:07 PM [facility] 12/09/2023 12:1 5 AM CDT 12/10/2023 10:59 PM CDT Kevin Corrigan MD ECG ORDERABLES Final Result Performing Organization Address [facility] Co de Phone Number [facility] * POCT glucose (12/09/2023 12:01 AM CDT) Glucose, POC 161 70 - 199 mg/dL Blood 12/09/2023 12:0 1 AM CDT 12/09/2023 12:01 AM CDT Kevin Corrigan MD LAB POCT ORDERABLES - DEVICE Final Result Performing Organization Address [facility] Co de Phone Number [facility] Department [place] [employer] [place] [address] * POCT glucose (12/08/2023 8:52 PM CDT) Glucose, POC 170 70 - 199 mg/dL Blood 12/08/2023 8:52 PM CDT 12/08/2023 8:52 PM CDT Kevin Corrigan MD LAB POCT ORDERABLES - DEVICE Final Result Performing Organization Address [facility] Co de Phone Number [facility] [place] [address] * CT Femur Left WO Contrast (12/08/2023 [...] MD IMG XR PROCEDURES Final Result * PA CRITICAL CARE ILL/INJURED PATIENT INIT 30-74 MIN [...] Shelton Fagan M.D., Ph.D Dick Nova MD [facility] XR PROCEDURES Final Result * XR Hip [...] Fagan M.D., Ph.D us Dick Nova MD [facility] XR PROCEDURES Final Result * XR Femur [...] Unknown LAB BLOOD ORDERABLES Final Res ult [facility] Department [place] [address] * Differential, auto (12/08/2023 11:35 AM CDT) Neutrophil abs 4.8 1.5 - 6.5 K/cumm Imm gran abs 0.0 0.0 - 0.1 K/cumm [facility] Lymphocyte abs 1.1 0.8 - 3.3 K/cumm [facility] Monocyte abs 0.5 0.2 - 0.8 K/cumm [facility] Eosinophil abs 0.1 0.0 - 0.5 K/cumm [facility] Basophil abs 0.0 0.0 - 0.1 K/cumm [facility] Neutrophil pct 73.8 % [facility] Comment: Interpretive Data Percent cell count reference ranges are not reported, since discordance with absolute values may lead to misinterpretation of CBC data. Current Interpretive Data was last revised on 2017. Imm gran pct 0.2 % [facility] Comment: Interpretive Data Percent cell count reference ranges are not reported, since discordance with absolute values may lead to misinterpretation of CBC data. Current Interpretive Data was last revised on 2017. Lymphocyte pct 16.9 % [facility] Comment: Interpretive Data Percent cell count reference ranges are not reported, since discordance with absolute values may lead to misinterpretation of CBC data. Current Interpretive Data was last revised on 2017. Monocyte pct 7.4 % [facility] Comment: Interpretive Data Percent cell count reference ranges are not reported, since discordance with absolute values may lead to misinterpretation of CBC data. Current Interpretive Data was last revised on 2017. Eosinophil pct 1.2 % [facility] Comment: Interpretive Data Percent cell count reference ranges are not reported, since discordance with absolute values may lead to misinterpretation of CBC data. Current Interpretive Data was last revised on 2017. Basophil pct 0.5 % [facility] Comment: Interpretive Data Percent cell count reference ranges are not reported, since discordance with absolute values may lead to misinterpretation of CBC data. Current Interpretive Data was last revised on 2017. Blood 12/08/2023 11:3 5 AM CDT 12/08/2023 12:05 PM CDT us Notinfile Unknown LAB BLOOD ORDERABLES Final Res ult Performing Organization Address [facility] Co de Phone Number [facility] [place] [address] * Type and screen (12/08/2023 11:35 AM CDT) Gian, indirect Negative ABO Rh O Positive [facility] Blood 12/08/2023 11:3 5 AM CDT 12/08/2023 12:12 PM CDT Narrative [facility] - 12/08/2023 1:13 PM CDT Has the patient had Daratumumab or Isatuximab in the past 6 months?->Unknown us Andre Willson MD LAB BLOOD BANK TEST ORDERABLES Final Result Performing Organization Address [facility] Co de Phone Number [facility] [place] [address] * aPTT (12/08/2023 11:35 AM CDT) [facility] aPTT 33 28 - 38 sec Comment: Interpretive Data Heparin therapeutic range: 66.0 - 100.0 seconds. Range based on correlation with therapeutic heparin activity range of 0.3 - 0.7 Units/mL. Current interpretive data was last revised on 2022. Blood 12/08/2023 11:3 5 AM CDT 12/08/2023 12:02 PM CDT Andre Willson MD LAB BLOOD ORDERABLES Final Res ult Performing Organization Address [facility] Co de Phone Number [facility] [place] [address] * (ABNORMAL) Protime-INR (12/08/2023 11:35 AM CDT) Pathologist [facility] PT 17.1(H) 9.7 - 13.0 sec INR 1.57(H) 0.90 - 1.20 [facility] Comment: Interpretive data Oral anticoagulant therapeutic ranges: Venous thromboembolism prophylaxis or treatment: 2.0-3.0 CARDIOLOGY Standard range: 2.0-3.0 High-intensity range: 2.5-3.5 Refer to indication-specific guidelines for appropriate target ranges for prosthetic heart valve replacement. Current interpretive data was last revised on 2019. Blood 12/08/2023 11:3 5 AM CDT 12/08/2023 12:02 PM CDT us Andre Willson MD LAB BLOOD ORDERABLES Final Res ult [facility] [place] [address] * Comprehensive metabolic panel (12/08/2023 11:35 AM CDT) Sodium 137 135 - 145 mmol/L Potassium, pl 4.9 3.3 - 4.9 mmol/L [facility] Chloride 105 97 - 110 mmol/L [facility] CO2 27 22 - 32 mmol/L [facility] Anion gap 5 2 - 15 mmol/L [facility] BUN 22 6 - 25 mg/dL [facility] Creatinine 0.63 0.60 - 1.10 mg/dL [facility] Glucose 105 70 - 199 mg/dL [facility] Comment: Interpretive Data Fasting glucose >/= 126 [...] 2022. Calcium 10.0 8.5 - 10.3 mg/dL [facility] Bilirubin, total 0.4 0.1 - 1.2 mg/dL [facility] Protein, pl 7.0 6.5 - 8.5 g/dL [facility] Albumin 3.9 3.5 - 5.0 g/dL [facility] Alk phos 75 40 - 130 Units/L [facility] ALT 21 7 - 45 Units/L [facility] AST 25 10 - 45 Units/L [facility] Blood 12/08/2023 11:3 5 AM CDT 12/08/2023 12:05 PM CDT us Andre Willson MD LAB BLOOD ORDERABLES Final Res ult [facility] [place] [address] * (ABNORMAL) CBC with auto differential (12/08/2023 11:35 AM CDT) WBC 6.5 3.8 - 9.9 K/cumm Hgb 11.3(L) 11.9 - 15.5 g/dL [facility] Hct 35.0(L) 35.6 - 45.5 % [facility] Plt 204 150 - 400 K/cumm [facility] MPV 9.8 9.1 - 12.3 fL [facility] RBC 3.58(L) 3.90 - 5.20 M/cumm [facility] MCV 97.8(H) 81.3 - 96.4 fL [facility] MCH 31.6 27.1 - 33.3 pg [facility] MCHC 32.3 32.3 - 35.7 g/dL [facility] RDW CV 14.1 11.1 - 14.9 % [facility] RDW SD 50.4(H) 35.7 - 48.1 fL [facility] NRBC abs 0.00 0.00 - 0.01 K/cumm [facility] Blood 12/08/2023 11:3 5 AM CDT 12/08/2023 12:05 PM CDT us Andre Willson MD LAB BLOOD ORDERABLES Final Res ult [facility] [place] [address] documented in this encounter Visit Diagnoses Diagnosis Closed displaced fracture of left femoral neck (HCC)- Primary Closed displaced fracture of left femoral neck (HCC) Contusion of left shoulder, initial encounter Fall, initial encounter Fall from standing, initial encounter Chronic heart failure with reduced ejection fraction and diastolic dysfunction ([facility] ([facility]) Primary hypertension Unspecified essential hypertension Obstructive sleep apnea on CPAP History of CAD (coronary artery disease) History of diabetes mellitus Personal history of endocrine, metabolic, and immunity disorders Closed nondisplaced intertrochanteric fracture of left femur, initial encounter ([facility]) Anxiety Anxiety state, unspecified Hyponatremia Hyposmolality and/or hyponatremia Closed nondisplaced intertrochanteric fracture of left femur ([facility]) Paroxysmal atrial fibrillation ([facility]) ([facility]) Atrial fibrillation Discharge planning issues Encounter for medication review Essential hypertension Unspecified essential hypertension Type 2 diabetes mellitus without complications ([facility]) ([facility]) DNR (do not resuscitate) Other specified conditions influencing health status Advanced care planning/counseling discussion Closed nondisplaced intertrochanteric fracture of left femur, initial encounter ([facility]) documented in this encounter Admitting Diagnoses Diagnosis [...] Perez RN) 0920 (Given - Provider: Eneida Kaiser, ARMANI)2042 (Given - Provider: Aron Perez RN) 0750 [...] 12/10/23 at 0915, Indications: Deep Vein Thrombosis Prevention 0817 (Given - Provider: Dariana Washington RN)2153 (Given - Provider: Aron Perez, ARMANI) 0918 (Given - Provider: Eneida Kaiser, ARMANI)204 (Given - Provider: Aron Perez, ARMANI) 075 (Given - Provider: Minerva Marcano, ARMANI) FLUoxetine (PROzac) capsule 20 mg 20 mg, oral, Daily, First dose on Thu12/09/23 at 0900 0817 (Given - Provider: Dariana Washington, ARMANI) 0920 (Given - Provider: Eneida Kaiser, ARMANI) 075 (Given - Provider: Minerva Marcano RN) insulin [...] constipation 0818 (Given - Provider: Dariana Washington, ARAMNI) 0920 (Given - Provider: Eneida Kaiser, ARMANI) [...] Eneida Kaiser RN)2226 (Given - Provider: Aron Perez RN) 1221 [...] (D10W) 10% bolus 500 mL 1 12/12/19 insulin regular (HumuLIN R, NovoLIN R) 100 [...] for Secondary Infusion - 0.9% Sodium Chloride 12/09/2023 ceFAZolin (ANCEF) 2,000 mg/2 0 mL in sterile water (premix) 2,000 mg 2 12/09/2023 dextrose (D10W) 10% bolus 250 mL 12/09/19 dextrose gel in packet 15 g 12/09/2023 diphenhydrAMINE (BENADRYL) 5 0 mg/mL injection [...] infusion 2 metoprolol (LOPRESSOR) injection 1 mg naloxone (NARCAN) 0.4 mg/mL injection 0.04-0.4 mg [...] 12/08/2023 documented in this encounter Care Teams Sap Mobility Architect Relationship Specialty Start Date End Date Cuba Larsen MD PCP - General Family Medicine 01/23/22 Chris Mendes MD Referring Physician Cardiology 12/23/21 Keli Orozco, mainspring former arbor end Failure Coordinator Transplant 04/15/23 Tami Mcknight mainspring former arbor end Failure Coordinator Cardiology 09/14/23 documented as of this encounter
--- OUTSIDE RECORDS SUMMARY | 2024-03-25 10:58 | XMS_ITS | Encounter Summary ---
Author Organization [facility] Healthcare Address [address] [place] [address] Care Team Providers Care Inspector Finishing Name Role Phone Chris Mendes MD Unavailable [phone] Cuba Larsen MD Primary Care Provider [phone] Keli Orozco RN Unavailable Unavailable Tami Mcknight RN Unavailable Unavailab le Reason for Referral * Consultation (Routine) - Closed Specialty Diagnoses / Procedures Referred By Indra muñoz Referred To Contact Podiatry Diagnoses [place] of [place] Cuba Larsen MD [address] [facility] [address] [address] Phone: tel: fax: Brandon Castillo DPM [address] [place] [address] Phone: tel: fax: Referral ID Status Reason Start Date Expiration Date V isits Requested Visits Authorized [id number] Closed Specialty Services Required 10/01/2023 10/30/2024 1 1 Question Answer Please select the performing region: External Order [171] To provider: BRANDON CASTILLO [[id number]] # of visits: 1 Reason for Visit * Reason Comments Cerebrovascular Accident 4 week f/u Encounter Details Date Type Department Care Team (Late st Contact Info) Description 10/01/2023 11:30 AM CDT Office Visit [facility] Medical [facility] Family Medicine at [address] [place] [phone] Cuba Larsen MD [address] [facility] [address] [id number] Essential hypertension (Primary Dx); History of CVA (cerebrovascular accident); Paroxysmal atrial fibrillation (CMS/HCC) (HCC); Type 2 diabetes mellitus without complication, without long-term current use of insulin (CMS/HCC) (HCC); [place] of [place] Social History Tobacco Use Types [...] on file 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 Gender Identity Not on file Sexual [...] this encounter Progress Notes * Ingrid Zimmerman, FLAT GRINDER OPERATOR - 10/01/2023 11:30 AM CDT Images from [...] Ambulatory referral to Podiatry Outpatient Referral Routine [place] of [place] Expected: 10/02/2023, Expires: 04/02/2024 documented as of this encounter Visit Diagnoses Diagnosis Essential hypertension- Primary Unspecified essential hypertension History of CVA (cerebrovascular accident) Transient ischemic attack (TIA), and cerebral infarction without residual deficits Paroxysmal atrial fibrillation (CMS/HCC) (HCC) Atrial fibrillation Type 2 diabetes mellitus without complication, without long-term current use of insulin ([facility]/HCC) (HCC) [place] of [place] documented in this encounter Discontinued Medications Medication Sig Discontinue Reason Start Date End Da te bmfhzook-uoi-zecm-FA-lutein 8 mg iron-400 mcg-300 mcg tablet Take by mouth Therapy completed 10/01/2023 documented as of this encounter Care Teams Inspector Finishing Relationship Specialty Start Date End Date Cuba Larsen MD PCP - General Family Medicine 01/23/22 Chris Mendes MD Referring Physician Cardiology 12/23/21 Keli Orozco, family preservation worker Failure Coordinator Transplant 04/15/23 Tami Mcknight, family preservation worker Failure Coordinator Cardiology 09/14/23 documented as of this encounter
--- OUTSIDE RECORDS SUMMARY | 2024-03-25 10:58 | XMS_ITS | Encounter Summary ---
Author Organization [facility] Address [address] [place] [address] Phone Care Team Providers Care Public Relations Manager Name Role Phone Chris Mendes MD Unavailable [phone] Cuba Larsen MD Primary Care Provider [phone] Keli Orozco RN Unavailable Unavailable Tami Mcknight RN Unavailable Unavailab le Reason for Visit * Reason Onset Date Comments lab reminder, BP update 11/17/2023 Encounter Details Date Type Department Care Team (Late st Contact Info) Description 11/17/[address] 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
--- OUTSIDE RECORDS SUMMARY | 2024-03-25 10:58 | XMS_ITS | Encounter Summary ---
Author Organization [facility] Healthcare Address [address] [place] [address] Care Team Providers Care Production Dispatcher Name Role Phone Chris Mendes MD Unavailable [phone] Cuba Larsen MD Primary Care Provider [phone] Keli Orozco RN Unavailable Unavailable Tami Mcknight RN Unavailable Unavailab le Reason for Visit * Reason Onset Date Comments Medical Question/Miscellaneous 10/06/2023 Encounter Details Date Type Department Care Team (Late st Contact Info) Description 10/06/2023 Telephone [facility] Family Medicine at [address] [place] [address] Cuba Larsen MD [address] [place] [phone] Medical Question/Miscellaneous Social History Tobacco Use Types [...] on file 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
--- OUTSIDE RECORDS SUMMARY | 2024-03-25 10:58 | XMS_ITS | Encounter Summary ---
Author Organization [facility] Healthcare Address [address] [place] [address] Care Team Providers Care Sportspersons Name Role Phone Chris Mendes MD Unavailable [phone] Cuba Larsen MD Primary Care Provider [phone] Keli Orozco RN Unavailable Unavailable Tami Mcknight RN Unavailable Unavailab le Encounter Details Date Type Department Care Team (Late st Contact Info) Description 10/13/2023 Telephone [facility] Trans[facility] Heart [address] [address] [phone] [place] [address] Robyn Walker Social History Tobacco Use Types [...] on file 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
--- OUTSIDE RECORDS SUMMARY | 2024-03-25 10:58 | XMS_ITS | Encounter Summary ---
Author Organization [facility] Healthcare Address [address] [place] [address] Care Team Providers Care Digital Proofing And Platemaker Name Role Phone Chris Mendes MD Unavailable [phone] Cuba Larsen MD Primary Care Provider [phone] Keli Orozco RN Unavailable Unavailable Reason for Visit * Reason Comments Essence Enhanced Encounter Encounter Details Date Type Department Care Team (Late st Contact Info) Description 09/02/2023 1:45 PM CDT Office Visit [facility] Family Medicine at [address] [place] [address] Cuba Larsen MD [address] [place] [address] Other general medical examination for administrative [...] on file 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 Gender Identity Not on file Sexual [...] this encounter Progress Notes * Ingrid Zimmerman, SENIOR DATABASE ADMINISTRATOR - 09/02/2023 1:45 PM CDT Error * [...] a living will or durable power of claim attorney?: Yes Do you have to strain [...] Disp: 100 each, Rfl: 1 blood-glucose meter [facility], Use daily or as [...] mouth daily, Disp: 30 capsule, Rfl: 2 tvlkzcfy-vam-qlps-FA-lutein 8 mg iron-400 mcg-300 mcg tablet, Take [...] Failure Coordinator (Transplant) Primary Pharmacy/DME suppliers: [id number] [address] [place] [address] [address] [place] [address] I reviewed the patient???s home and community [...] Improve Diet Advanced Directive Durable Power of Bagging Machine Operator: Discussed Today: Living Will: Discussed Today: Assessment [...] asa Mood worse, SP CVA Habits neg TRACK LAYER HEAD prn Meds reviewed Essential hypertension Cont meds, BP stable Acquired hypothyroidism TSH normal, cont meds Paroxysmal atrial fibrillation (CMS/[facility]) (HCC) On meds, sees cardio, stable Type 2 diabetes mellitus without complication, without long-term current use of insulin (CMS/[facility]) (HCC) A1C 6.1, cont meds, diet, accuc [...] 12/16/2023 added in this encounter Care Teams Digital Proofing And Platemaker Relationship Specialty Start Date End Date Cuba Larsen MD PCP - General Family Medicine 01/23/22 Chris Mendes MD Referring Physician Cardiology 12/23/21 Keli Orozco, activity aid Failure Coordinator Transplant 04/15/23 documented as of this encounter
--- OUTSIDE RECORDS SUMMARY | 2024-03-25 10:58 | XMS_ITS | Encounter Summary ---
Author Organization [facility] Address [address] [place] [address] Phone Care Team Providers Care Supervisor Electronic Coils Name Role Phone Chris Mendes MD Unavailable Cuba Larsen MD Primary Care Provider [phone] Keli Orozco RN Unavailable Unavailable Tami Mcknight RN Unavailable Unavailab le Reason for Visit * Reason Onset Date Comments lab results, recs 11/03/2023 Encounter Details Date Type Department Care Team (Late st Contact Info) Description 11/03/2023 Telephone [facility] Cardiology [address] [facility] 8th [place] [address] [place] [phone] Racquel Abebe NP [address] [place] [address] lab results, recs Social History Tobacco Use [...] on file 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 LMOR asking for return call, and having blood work done at [facility]. * Telephone Encounter - Cierra Sandy RN - 11/03/2023 12:32 PM CDT LMOR noting results. Advised she should increase Spironolactone as planned with repeat blood work at [facility] in 2 weeks time. Order placed. [...] increasing this dose. Order is in at [facility]. Call with blood pressure update in [...] BLOOD ORDERABLES Final R esult [facility] [address] [place] [address] documented in this encounter Visit Diagnoses Diagnosis Nonischemic cardiomyopathy (CMS/HCC) (HCC)- Primary Other primary cardiomyopathies Chronic combined systolic (congestive) and diastolic (congestive) heart failure (HCC) Acute on chronic systolic CHF (congestive heart failure) (CMS/HCC) (HCC) documented in this encounter Care Teams Supervisor Electronic Coils Relationship Specialty Start Date End Date Cuba Larsen MD PCP - General Family Medicine 01/23/22 Chris Mendes MD Referring Physician Cardiology 12/23/21 Keli Orozco, security field supervisor Failure Coordinator Transplant 04/15/23 Tami Mcknight security field supervisor Failure Coordinator Cardiology 09/14/23 documented as of this encounter
--- OUTSIDE RECORDS SUMMARY | 2024-03-25 10:58 | XMS_ITS | Encounter Summary ---
Author Organization [facility] Address [address] [place] [address] Phone Care Team Providers Care Programming Internship Name Role Phone Chris Mendes MD Unavailable [phone] Ce Larsen MD Primary Care Provider [phone] Keli Orozco RN Unavailable Unavailable Reason for Visit * Consultation (Routine) - Closed Specialty Diagnoses / Procedures Referred By Indra muñoz Referred To Contact Cardiology Diagnoses Mitral valve prolapse Ce Larsen MD [address] [address] Phone: tel: fax: Chris Mendes MD [address] [address] Phone: tel: fax: Referral ID Status Reason Start Date Expiration Date V isits Requested Visits Authorized [id number] Closed Specialty Services Required 01/23/2023 01/25/2024 12 12 Encounter Details Date Type Department Care Team (Late st Contact Info) Description 07/27/2023 2:40 PM CDT Office Visit [facility] Cardiology [address] 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 She is very involved in her amish. They are just having a strawberry festival [...] ADLs. She can do her activities around amish, appears to be essentially [place] [employer] class II. She is not [...] - 07/29/2023 03:46 PM Chris Mendes M.D. auto electrician Classifying Machine Operator, Heart Failure Program EG/ps cc: CE LARSEN [...] mouth added in this encounter Care Teams Programming Internship Relationship Specialty Start Date End Date Ce Larsen MD PCP - General Family Medicine 01/23/22 Chris Mendes MD Referring Physician Cardiology 12/23/21 Keli Orozco, glaze handler Failure Coordinator Transplant 04/15/23 documented as of this encounter
--- OUTSIDE RECORDS SUMMARY | 2024-03-25 10:58 | XMS_ITS | Encounter Summary ---
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 (CMS/HCC) (HCC) Araceli Salcedo MD [address] [place] [address] Phone: tel: fax: [facility] [address] [facility] 6th [address] [place] [address] Phone: tel: fax: Referral ID Status Reason Start Date Expiration Date Visits Requested Visits Authorized [id number] Pending Review Specialty Services Required 10/09/2023 11/07/2024 1 1 Question Answer Please select the performing region: [facility] (All Locations) [167] # of visits: 1 Comments Stroke pt with AYAD, waking up at night due to CPAP mask Reason for Visit * Consultation (Routine) - Authorized Specialty Diagnoses / Procedures Referred By Contac t Referred To Contact Neurology Diagnoses History of CVA (cerebrovascular accident) Cuba Larsen MD [facility] [place] [address] Phone: tel: fax: Araceli Salcedo MD [address] [place] [address] Phone: tel: fax: Referral ID Status Reason Start Date Expiration Date Visits Requested Visits Authorized [id number] Authorized Specialty Services Required 10/09/2023 10/07/2024 12 12 Encounter Details Date Type Department Care Team (Latest Contact Info) Description 10/09/2023 11:00 AM CDT Office Visit [facility] Stroke [address] [facility] [address] [place] [address] Araceli Salcedo MD [address] [place] [address] Hemiparesis affecting left side as [...] on file 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 MEDICATIONS: Reviewed in [employer]. PAST MEDICAL, FAMILY, SOCIAL HISTORY: Reviewed in [...] biceps, triceps, brachioradialis, knees, and ankles. COORDINATION: Xswdtz-xjrp-felpkj and rapid alternating movements are minimally slow [...] patient is continuing to work with her geoscience laboratory technician regarding her blood pressure control. 2. The [...] Professor of Neurology [facility] RV/tm documented in [...] 10/09/2023 documented in this encounter Care Teams Core Feeder Relationship Specialty Start Date End Date Cuba Larsen MD PCP - General Family Medicine 01/23/22 Chris Mendes MD Referring Physician Cardiology 12/23/21 Keli Orozco, applications support engineer Failure Coordinator Transplant 04/15/23 Tami Mcknight, applications support engineer Failure Coordinator Cardiology 09/14/23 documented as of this encounter
--- OUTSIDE RECORDS SUMMARY | 2024-03-25 10:58 | XMS_ITS | Encounter Summary ---
Author Organization [facility] Healthcare Address [address] [place] [address] Care Team Providers Care Jack Frame Tender Name Role Phone Chris Mendes MD Unavailable [phone] Keli Orozco RN Unavailable Unavailable Alysa Newton RN Unavailable [phone] Cuba Larsen MD Primary Care Provider [phone] Reason for Visit * Reason Onset Date Comments Medication Request 03/19/2023 Encounter Details Date Type Department Care Team (Late st Contact Info) Description 03/19/2023 Telephone [facility] Family Medicine [address] [place] [phone] Cuba Larsen MD [address] [place] [phone] Medication Request Social History Tobacco Use [...] on file 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) ([facility]) 1 each by other route daily 100 each 1 03/19/2023 blood glucose diagnostic (glucose blood) stripIndications:T ype 2 diabetes mellitus without complication, without long-term current use of insulin (CMS/HCC) ([facility]) One strip daily to check glucose 100 each 1 03/19/2023 blood-glucose meter miscIndications:Ty pe 2 diabetes mellitus without complication, without long-term current use of insulin ([facility]) ([facility]) Use daily or as directed for monitoring of diabetes. 1 each 03/19/2023 documented in this encounter Miscellaneous Notes * Telephone Encounter - Leandra Winters RN - 03/19/2023 5:29 PM CST Script sent. L ASSEMBLER * Telephone Encounter - Jerome Rascon - [...] need to be routed? Yes-Action Needed L ASSEMBLER documented in this encounter Plan of Treatment Not on file documented as of this encounter Visit Diagnoses Diagnosis Type 2 diabetes mellitus without complication, without long-term current use of insulin (CMS/HCC) (HCC)- Primary documented in this encounter Care Teams Jack Frame Tender Relationship Specialty Start Date End Date Cuba Larsen MD [address] [facility] [address] [place] [address] PCP - General Family Medicine 01/23/22 Chris Mendes MD Referring Physician Cardiology 12/23/21 Keli Orozco, outboard motor inspectorFashion Patternmaker Cardiology 12/23/21 04/15/23 Alysa Newton, RN [address] [facility] [address] [place] [address] Fashion Patternmaker Cardiology 12/23/21 documented as of this encounter
--- OUTSIDE RECORDS SUMMARY | 2024-03-25 10:58 | XMS_ITS | Encounter Summary ---
Author Organization [facility] Healthcare Address [address] [place] [address] Care Team Providers Care Ag Equipment Field Service Technician Name Role Phone Chris Mendes MD Unavailable Cuba Larsen MD Primary Care Provider [phone] Keli Orozco RN Unavailable Unavailable Encounter Details Date Type Department Care Team (Late st Contact Info) Description 09/10/2023 Telephone 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 Was discharged from [facility] about a month ago with a [...] call from nurse coordinator. Call back number [phone] documented in this encounter Plan of Treatment [...] documented as of this encounter Care Teams Ag Equipment Field Service Technician Relationship Specialty Start Date End Date Cuba Larsen MD PCP - General Family Medicine 01/23/22 Chris Mendes MD Referring Physician Cardiology 12/23/21 Keli Orozco, gold cutter Failure Coordinator Transplant 04/15/23 documented as of this encounter
--- OUTSIDE RECORDS SUMMARY | 2024-03-25 10:58 | XMS_ITS | Encounter Summary ---
Author Organization [facility] Healthcare Address [address] [place] [address] Care Team Providers Care Cash Surrender Calculator Name Role Phone Chris Mendes MD Unavailable [phone] Cuba Larsen MD Primary Care Provider [phone] Keli Orozco RN Unavailable Unavailable Tami Mcknight RN Unavailable Unavailab le Reason for Visit * Reason Comments Itching Encounter Details Date Type Department Care Team ([facility] Contact Info) Description 11/03/2023 3:30 PM CDT Office Visit [facility] Medical Group Family Medicine at [address] [address] Cuba Larsen MD [address] [place] [address] Pruritus (Primary Dx); Anxiety Social History Tobacco [...] file 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
--- OUTSIDE RECORDS SUMMARY | 2024-03-25 10:58 | XMS_ITS | Encounter Summary ---
Author Organization [facility] Address [address] [place] [address] Phone Care Team Providers Care Aircraft Shipping Checker Name Role Phone Chris Mendes MD Unavailable [phone] Cuba Larsen MD Primary Care Provider [phone] Keli Orozco RN Unavailable Unavailable Encounter Details Date Type Department Care Team (Late st Contact Info) Description 08/07/2023 Telephone [facility] Cardiology [address] [facility] 8th [place] [address] [place] [phone] Chris Mendes MD [address] [facility] [address] [place] [address] Social History Tobacco Use Types [...] on file 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 Patient is having a stroke and heading to [facility] via her nephew. Let Dr Mendes know and Dr Wells (on service) * Telephone Encounter - Marj Yousif - 08/07/2023 11:52 AM CDT Cinthya Patient's brother called to report that patient is currently having a stroke and on her way to ER. He would like a return call at [phone] to discuss her condition. documented in this encounter Plan of Treatment Not on file documented as of this encounter Visit Diagnoses Not on filedocumented in this encounter Care Teams Aircraft Shipping Checker Relationship Specialty Start Date End Date Cuba Larsen MD PCP - General Family Medicine 01/23/22 Chris Mendes MD Referring Physician Cardiology 12/23/21 Keli Orozco, flagsetter Failure Coordinator Transplant 04/15/23 documented as of this encounter
--- OUTSIDE RECORDS SUMMARY | 2024-03-25 10:58 | XMS_ITS | Encounter Summary ---
Author Organization [facility] Healthcare Address [address] [place] [address] Care Team Providers Care Usability Engineer Name Role Phone Chris Mendes MD Unavailable [phone] Cuba Larsen MD Primary Care Provider [phone] Keli Orozco RN Unavailable Unavailable Reason for Visit * Reason Comments Successful Phone Call 08/07/2023 - 024 (3 days)[facility] Encounter Details Date Type Department Care Team (Late st Contact Info) Description 08/12/2023 LOTTIE IP Outreach [facility] Accountable Care Organization [address] [place] [address] Anh Carmona LPN [address] [place] [address] Dr Garcia [address] [place] [address] Social History Tobacco Use Types Packs/Day Years [...] file 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 Patient status post-discharge: Q1 - Better Status Details: - Care population health coach spoke with patient on the phone [...] up with primary care provider as care population health coach did advise that it is important to follow up with your physician after a discharge. Patient reports that she will be following up with him on September 01 at her regular scheduled visit and did decline to schedule one sooner. Care population health coach has sent a message to primary care provider regarding this. Patient educated about same day sick appts at PCP office and s/s to report to physician. Pt verbalized understanding of information presented. No additional needs identified at this time. Provided mycontact information for future needs. Anh Carmona LPN, GRAZYNA Care Railroad Crossing Protection Maintainer [facility] Accountable Care Organization / [facility] Medical Group Contact E-Mail - [email or web address] or [phone] documented in this encounter Plan of Treatment Not on file documented as of this encounter Visit Diagnoses Not on filedocumented in this encounter Care Teams Usability Engineer Relationship Specialty Start Date End Date Cuba Larsen MD PCP - General Family Medicine 01/23/22 Chris Mendes MD Referring Physician Cardiology 12/23/21 Keli Orozco, gear machinist Failure Coordinator Transplant 04/15/23 documented as of this encounter
--- OUTSIDE RECORDS SUMMARY | 2024-03-25 10:58 | XMS_ITS | Encounter Summary ---
Author Organization [facility] Healthcare Address [address] [place] [address] Care Team Providers Care Director Stage Name Role Phone Chris Mendes MD Unavailable [phone] Cuba Larsen MD Primary Care Provider [phone] Keli Orozco RN Unavailable Unavailable Reason for Visit * Reason Onset Date Comments CARE BANDAGE WRAPPING MACHINE OPERATOR LOTTIE IP 08/12/2023 Kaye Toddin ed Follow Up Encounter Details Date Type Department Care Team (Late st Contact Info) Description 08/12/2023 Telephone [facility] Medical [facility] Family Medicine [address] [facility] [address] [place] [address] Anh Carmona, [place] [address] [facility] [address] [place] [address] CARE BANDAGE WRAPPING MACHINE OPERATOR LOTTIE IP (Essence Declined Follow Up) Social [...] on file 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 Gender Identity Not on file Sexual Orientation Not on file documented as of this encounter Miscellaneous Notes * Telephone Encounter - Anh Carmona LPN - 08/12/2023 10:24 AM CDT 08/07/2023 - 08/10/2023 (3 days) [facility] Acute ischemic right MCA stroke apixaban Care trolley coach driver contacted patient on the phone who did [...] filedocumented in this encounter Care Teams Director Stage Relationship Specialty Start Date End Date Cuba Larsen MD PCP - General Family Medicine 01/23/22 Chris Mendes MD Referring Physician Cardiology 12/23/21 Keli Orozco, ticker maintainer Failure Coordinator Transplant 04/15/23 documented as of this encounter
--- OUTSIDE RECORDS SUMMARY | 2024-03-25 10:58 | XMS_ITS | Encounter Summary ---
Author Organization [facility] Healthcare Address [address] [place] [address] Care Team Providers Care Corporate Coordinator Name Role Phone Chris Sanchez MD Unavailable [phone] Cuba Larsen MD Primary Care Provider [phone] Keli Orozco RN Unavailable Unavailable Reason for Referral * Cardiology (Routine) - Closed Specialty Diagnoses / Procedures Referred By Indra t Referred To Contact Diagnoses Chronic combined systolic (congestive) and diastolic (congestive) heart failure (HCC) Procedures Transthoracic Echo (TTE) Complete W Doppler/CF Chris Sanchez MD Phone: tel: fax: [address] [address] Referral ID Status Reason Start Date Expiration Date Visits Re quested Visits Authorized [id number] Closed 02/03/2023 03/04/2024 1 1 Reason for Visit * Cardiology (Routine) - Closed Specialty Diagnoses / Procedures Referred By Contac t Referred To Contact Diagnoses Chronic combined systolic (congestive) and diastolic (congestive) heart failure (HCC) Procedures Transthoracic Echo (TTE) Complete W Doppler/CF Chris Sanchez MD Phone: tel: fax: [address] [address] Referral ID Status Reason Start Date Expiration Date Visits Re quested Visits Authorized [id number] Closed 02/03/2023 03/04/2024 1 1 Encounter Details Date Type Department Care Team (Latest Contact Info) Description 07/27/2023 12:54 PM CDT - 07/27/2023 11:59 PM CDT Hospital Encounter [facility] Cardiac Diagnostic Lab [address] [facility] 8th [place] [phone] Chronic combined systolic (congestive) and diastolic (congestive) [...] on file 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 Gender Identity Not on file Sexual Orientation Not on file documented as of this encounter Medications at Time of Discharge blood glucose diagnostic (glucose blood) stripIndications :Type 2 diabetes mellitus without complication, without long-term current use of insulin ([facility]) ([facility]) One strip daily to check glucose 100 each 1 03/19/2023 blood-glucose meter miscIndications: Type 2 diabetes mellitus without complication, without long-term current use of insulin (CMS/HCC) ([facility]) Use daily or as directed for monitoring [...] WITH FOOD 180 tablet 1 03/03/2023 4 bvduganf-cnp-osi n-FA-lutein 8 mg iron-400 mcg-300 mcg tablet [...] #: 0 Date of : 1940 (F) [employer] Tester: Jayla Wilson RDCS Referring Physician: CHRIS SANCHEZ MD Contrast Agent: 1.1 ml Optison Administered, (1.9 ml wasted). Contrast Administered by: Miguel Harris RN Supervised/Interpreted by: Viktor Cabrales MD Diagnosis: Location: [facility] Reason for test: Chronic CHF MV Structure: [...] 2=Hypo 3=Akinetic 4=Dyskin./Aneurysm 0=Not visualized) Parasternal Long Malott:MAS=1 BAS=1 MIL=1 NIGHAT=1 Parasternal Short Malott:MAS=1 MIS=1 OK=1 MIL=1 MAL=1 MA=1 Apical 4 [...] MD By signing this report, the attending kilnman certifies that he or she has personally supervised and interpreted the echocardiogram and has reviewed and or edited and agrees with the written comments contained within the report. Procedure Note Viktor Lauren MD - 07/27/2023 Patient name: Prema Pearce Date of test: 07/27/2023 Type of test: TTE w/Doppler [facility] #: 0 Date of : 1940 (F) [employer] Tester: Jayla Wilson RUST Referring Physician: CHRIS SANCHEZ MD Contrast Agent: 1.1 ml Optison Administered, (1.9 ml wasted). Contrast Administered by: Miguel Harris RN Supervised/Interpreted by: Viktor Cabrales MD Diagnosis: Location: [facility] Reason for test: Chronic CHF MV Structure: [...] 2=Hypo 3=Akinetic 4=Dyskin./Aneurysm 0=Not visualized) Parasternal Long Malott:MAS=1 BAS=1 MIL=1 NIGHAT=1 Parasternal Short Malott:MAS=1 MIS=1 OK=1 MIL=1 MAL=1 MA=1 Apical 4 [...] MD By signing this report, the attending kilnman certifies that he or she has personally [...] mL documented in this encounter Care Teams Corporate Coordinator Relationship Specialty Start Date End Date Cuba Larsen MD PCP - General Family Medicine 01/23/22 Chris Sanchez MD Referring Physician Cardiology 12/23/21 Keli Orozco, hardwood floor installation helper Failure Coordinator Transplant 04/15/23 documented as of this encounter
--- OUTSIDE RECORDS SUMMARY | 2024-03-25 10:58 | XMS_ITS | Encounter Summary ---
Author Organization [facility] Healthcare Address [address] [place] [address] Care Team Providers Care Back Panel Padder Name Role Phone Chris Mendes MD Unavailable [phone] Cbua Larsen MD Primary Care Provider [phone] Keli Orozco RN Unavailable Unavailable Reason for Visit * Auth/Cert (Routine) Specialty Diagnoses / Procedures Referred By Contac t Referred To Contact Diagnoses Acute ischemic right MCA stroke (HCC) Procedures NA Referral ID Status Reason Start Date Expiration Date Visits Re quested Visits Authorized [id number] 1 1 Encounter Details Date Type Department Care Team (Late st Contact Info) Description 08/07/2023 12:47 PM CDT Anesthesia Event [facility] Neuro Interventional Radiology [address] [place] [address] Yoly Wood MD PhD [address] [place] [address] Anesthesia Record Procedure Summary Procedure Name Responsible [...] Sherly Fox RN 08/09/23 0000 by Chad Menedz, RN RETIRED Surgical Site 08/07/23; 1310; Anterior, [...] file 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 Gender Identity Not on file Sexual Orientation Not on file documented as of this encounter OR Notes * Anesthesia Postprocedure Evaluation - Bushra Waite CRNA - 08/07/2023 2:08 PM CDT Patient: Prema Pearce Procedure Summary Date: 08/07/23 Room / Location: [facility] Interventional Radiology Anesthesia Start: 1247 Anesthesia Stop: 1408 Procedure: PERCUTANEOUS ARTERIAL THROMBECTOMY, INTRACRANIAL Diagnosis: Scheduled Providers: Responsible Provider: Yoly Wood MD PhD Anesthesia Type: general ASA Status: 3 - Emergent Anesthesia Type: [id number]/94(111),P87,RR17,[id number] Anesthesia Post Evaluation Patient location during evaluation: ICU Patient participation: waiting for patient participation Level of consciousness: arouses button pusher Pain score: unable to evaluate Airway patency: [...] for patient participation Level of consciousness: arouses button pusher Pain score: unable to evaluate Airway patency: [...] Date Noted Acute ischemic right MCA stroke ([facility]) 08/07/2023 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 ([facility]) ([facility]) 10/11/2021 Essential tremor History of nephrolithiasis 03/21/2021 Pica in adults 08/21/2020 Thyroid nodule 08/21/2020 Recurrent major depressive disorder, in full remission ([facility]) ([facility]) 08/21/2020 AYAD on CPAP 08/21/2020 Chronic combined systolic (congestive) and diastolic (congestive) heart failure ([facility]) 06/05/2019 Gastro-esophageal reflux disease without esophagitis 06/05/2019 WAI (generalized anxiety disorder) 06/05/2019 Hypertensive heart disease with heart failure ([facility]) ([facility]) 06/05/2019 Insomnia, unspecified 06/05/2019 Slow transit constipation 06/05/2019 Acquired hypothyroidism 05/31/2019 Type 2 diabetes mellitus without complications ([facility]) ([facility]) 05/31/2019 Essential hypertension 05/31/2019 Presence of left artificial knee joint 05/25/2019 Paroxysmal atrial fibrillation ([facility]) ([facility]) 08/18/2017 Past Medical History: Diagnosis Date Adrenal nodule ([facility]) Anxiety Aortic stenosis, moderate Atrial fibrillation ([facility]) ([facility]) Cardiomyopathy ([facility]) Diabetes mellitus ([facility]) Dyslipidemia GERD (gastroesophageal reflux disease) Heart murmur HFrEF (heart failure with reduced ejection fraction) ([facility]) ([facility]) Hyperlipidemia Hypertension Hypothyroidism Insomnia Mitral regurgitation NSTEMI (non-ST elevated myocardial infarction) ([facility]) ([facility]) Obesity AYAD on CPAP Patellar sleeve fracture of left knee PONV (postoperative nausea and vomiting) Pulmonary embolism ([facility]) Sleep apnea Stroke ([facility]) Zenker's diverticulum Past Surgical History: [...] strip daily to check glucose blood-glucose meter [facility] -- 03/19/23 -- Cuba Larsen MD Use [...] (10 mg total) by mouth daily lancets [facility] -- 03/19/23 -- Cuba Larsen MD 1 [...] BY MOUTH TWICE A DAY WITH FOOD iiuplepw-ckj-dpfl-FA-lutein 8 mg iron-400 mcg-300 mcg tablet -- [...] mg tablet metFORMIN (GLUCOPHAGE) 500 mg tablet uiaqbjrg-xyl-zqoe-FA-lutein 8 mg iron-400 mcg-300 mcg tablet rosuvastatin [...] Medication protocol when under care of a CARDIOVASCULAR TECHNOLOGIST Planned anesthesia: General Team communication plan: oral ET tube Induction: Induction: intravenous. Postoperative Plan: Patient's planned disposition post procedure is ICU. Informed Consent: Discussed plan with CARDIOVASCULAR TECHNOLOGIST. Anesthesia plan and risks discussed with patient [...] Emergent airway documentation: Patient identity confirmed by: [facility], [facility]-assigned identification number and provided demographic data Risks [...] Name Priority Date/Time Associated Diagnosis Comments CT AN PROCEDURE PLACEHOLDER Routine 08/07/2023 1:[address] AN EMERGENT ENDOTRACHEAL AIRWAY Routine 08/07/2023 1:13 PM CDT documented in this encounter Results * CT AN EMERGENT ENDOTRACHEAL AIRWAY, CT AN PROCEDURE PLACEHOLDER (08/07/2023 1:13 PM CDT) Narrative Yoly Wood MD PhD - 08/07/2023 1:13 PM CDT Yoly Wood MD PhD ? 08/07/2023 ??1:15 PM Airway Patient location: OR Urgency: emergent Indications for airway management: anesthesia Difficult airway: no Staff: Supervising provider: Yoly Wood MD PhD Placed by: MITCHELL: Bushra Waite CRNA Emergent airway documentation: Patient identity confirmed by: juan houser, [facility]-assigned identification number and provided demographic data Risks [...] 08/07/2023 documented in this encounter Care Teams Back Panel Padder Relationship Specialty Start Date End Date Cuba Larsen MD PCP - General Family Medicine 01/23/22 Chris Mendes MD Referring Physician Cardiology 12/23/21 Keli Orozco, photo print specialist Failure Coordinator Transplant 04/15/23 documented as of this encounter
--- OUTSIDE RECORDS SUMMARY | 2024-03-25 10:58 | XMS_ITS | Encounter Summary ---
Author Organization [facility] Healthcare Address [address] [place] [address] Care Team Providers Care Shop And Alteration Tailor Name Role Phone Chris Mendes MD Unavailable [phone] Keli Orozco RN Unavailable Unavailable Alysa Newton RN Unavailable [phone] Cuba Larsen MD Primary Care Provider [phone] Keli Orozco RN Unavailable Unavailable Keli Orozco RN Unavailable Unavailable Reason for Visit * Reason Comments Essence Enhanced Encounter Encounter Details Date Type Department Care Team (Late st Contact Info) Description 03/03/2023 1:30 PM FURNITURE DIPPER Office Visit [facility] Family Medicine [address] [place] [address] Cuba Larsen MD [address] [place] [address] Other general medical examination for administrative purposes [...] on file Legal Sex Female 4:20 AM FURNITURE DIPPER Gender Identity Not on file Sexual Orientation Not on file documented as of this encounter Last Filed Vital Signs Vital Sign Reading Time Taken Comments Blood Pressure 118/86 03/03/2023 1:31 PM FURNITURE DIPPER Pulse 85 03/03/2023 1:31 PM FURNITURE DIPPER Temperature 36.1 ??C (97 ??F) 03/03/2023 1:31 PM FURNITURE DIPPER Respiratory Rate - - Oxygen Saturation 97% 03/03/2023 1:31 PM FURNITURE DIPPER Inhaled Oxygen Concentration - - Weight 84.5 kg (186 lb 3.2 oz) 03/03/2023 1:31 P M FURNITURE DIPPER Height 154.9 cm (5' 1 ) 03/03/2023 1:31 PM FURNITURE DIPPER Body Mass Index 35.18 03/03/2023 1:31 PM FURNITURE DIPPER documented in this encounter Progress Notes * Ida Lara RN - 03/03/2023 1:30 PM CST Error ITURE DIPPER * Cuba Larsen MD - 03/03/2023 1:30 PM CST Images from the original note were not included. Essence Evaluation Patient Name: Prema Pearce Date Of : 1940 Date Of Service: @DATEOFSERVICE@ Basic Information In general, would you say your health is: Good Do you have an advance directive, such as a living will or durable power of prosecuting attorney?: Yes Do you have to strain [...] 2 diabetes mellitus without complications (CMS/HCC) ([facility]) Essential hypertension Chronic combined systolic (congestive) and diastolic (congestive) heart failure (HCC) Gastro-esophageal reflux disease without esophagitis WAI (generalized anxiety disorder) Hypertensive heart disease with heart failure (CMS/HCC) ([facility]) Insomnia, unspecified 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) ([facility]) Essential tremor Past Medical History: Diagnosis Date Adrenal nodule ([facility]) Anxiety Aortic stenosis, moderate Atrial fibrillation (CMS/HCC) (HCC) Cardiomyopathy (HCC) Diabetes mellitus (HCC) Dyslipidemia GERD (gastroesophageal reflux disease) Heart murmur HFrEF (heart failure with reduced ejection fraction) ([facility]/HCC) ([facility]) Hyperlipidemia Hypertension Hypothyroidism Insomnia Mitral regurgitation NSTEMI (non-ST elevated myocardial infarction) ([facility]/HCC) ([facility]) Obesity AYAD on CPAP Patellar sleeve fracture of left knee PONV (postoperative nausea and vomiting) Pulmonary embolism ([facility]) Sleep apnea Stroke ([facility]) Zenker's diverticulum Past Surgical History: Procedure Laterality [...] WITH FOOD, Disp: 180 tablet, Rfl: 1 vyeoffzu-nbp-wkoy-FA-lutein 8 mg iron-400 mcg-300 mcg tablet, Take [...] Disp: 100 each, Rfl: 1 blood-glucose meter [facility], Use daily or as directed for monitoring [...] Failure Coordinator (Transplant) Primary Pharmacy/DME suppliers: [id number] [address] [facility] [address] [place] [address] Detection of Cognitive Impairment: The patient does [...] Improve Diet Advanced Directive Durable Power of Financial Report Service Sales Agent: Discussed Today Living Will: Discussed Today Assessment and Plan: Diagnoses and all orders for this visit: Other general medical examination for administrative purposes (Primary) - completed Type 2 diabetes mellitus without complication, without long-term current use of insulin ([facility]) ([facility]) - A1c is 5.9 She does see the eye doctor. No peripheral neuropathy. We are going to stop the glipizide continue metformin , Farxiga was not covered under insurance Paroxysmal atrial fibrillation (CMS/[facility]) ([facility]) - on Eliquis. Sees Cardiology Acquired hypothyroidism - TSH normal may continue present management Essential hypertension - continue meds blood pressure controlled Gastro-esophageal reflux disease without esophagitis - currently stable Chronic combined systolic (congestive) and diastolic (congestive) heart failure (HCC) - ejection fraction 52%. Seeing Cardiology 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 (CMS/[facility]) ([facility]) - stable WAI (generalized anxiety disorder)/insomnia - [...] the plan were completed as outlined by [facility]. A copy of the prevention plan [...] on: 03/03/2023 02:36 PM Modules accepted: Orders ITURE DIPPER documented in this encounter Plan of Treatment Scheduled Orders Name Type Priority Associated Diagnoses Orde r Schedule CBC with auto differential Lab Routine Essential hypertension Expected: 07/15/2023, Expires: 03/03/2024 Comprehensive metabolic panel Lab Routine Type 2 diabetes mellitus without complication, without long-term current use of insulin ([facility]) ([facility]) Essential hypertension Expected: 07/15/2023, Expires: 03/03/2024 Lipid [...] 03/03/2023 documented in this encounter Care Teams Shop And Alteration Tailor Relationship Specialty Start Date End Date Cuba Larsen MD [address] [facility] [address] [place] [address] PCP - General Family Medicine 01/23/22 Chris Mendes MD Referring Physician Cardiology 12/23/21 Keli Orozco, merchandising representativeCarbon Dioxide Operator Cardiology 12/23/21 04/15/23 Alysa Newton, RN [address] [facility] [address] [place] [address] Carbon Dioxide Operator Cardiology 12/23/21 Keli Orozco, educational technologist Failure Coordinator 04/02/23 4 Keli Orozco, educational technologist Failure Coordinator Transplant 04/15/23 documented as of this encounter
--- OUTSIDE RECORDS SUMMARY | 2024-03-25 10:58 | XMS_ITS | Encounter Summary ---
Author Organization [facility] Healthcare Address [address] [place] [address] Care Team Providers Care Table Games Shift Manager Name Role Phone Chris Mendes MD Unavailable Cuba Larsen MD Primary Care Provider [phone] Keli Orozco RN Unavailable Unavailable Tami Mcknight RN Unavailable Unavailab le Encounter Details Date Type Department Care Team (Late st Contact Info) Description 10/12/2023 Telephone [facility] Transplant Heart [address] [address] [address] [phone] [place] [address] Anh Ignacio CMA Social History Tobacco Use [...] on file 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 Call back number is [phone] documented in this encounter Plan of Treatment [...] documented as of this encounter Care Teams Table Games Shift Manager Relationship Specialty Start Date End Date Cuba Larsen MD PCP - General Family Medicine 01/23/22 Chris Mendes MD Referring Physician Cardiology 12/23/21 Keli Orozco, time broker Failure Coordinator Transplant 04/15/23 Tami Mcknight, time broker Failure Coordinator Cardiology 09/14/23 documented as of this encounter
--- OUTSIDE RECORDS SUMMARY | 2024-03-25 10:58 | XMS_ITS | Encounter Summary ---
Author Organization [facility] Healthcare Address [address] [place] [address] Care Team Providers Care Finisher Brush Name Role Phone Chris Mendes MD Unavailable [phone] Cuba Larsen MD Primary Care Provider [phone] Keli Orozco RN Unavailable Unavailable Tami Mcknight RN Unavailable Unavailab le Encounter Details Date Type Department Care Team (Late st Contact Info) Description 12/01/2023 Telephone [facility] Transplant Heart [address] [address] [address] [phone] [place] [address] Robyn Walker Social History Tobacco Use Types [...] on file 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
--- OUTSIDE RECORDS SUMMARY | 2024-03-25 10:58 | XMS_ITS | Encounter Summary ---
Author Organization [facility] Address [address] [place] [address] Phone Care Team Providers Care Writing Tutor Name Role Phone Chris Mendes MD Unavailable Cuba Larsen MD Primary Care Provider [phone] Keli Orozco RN Unavailable Unavailable Tami Mcknight RN Unavailable Unavailab le Encounter Details Date Type Department Care Team (Late st Contact Info) Description 09/22/2023 Telephone [facility] Cardiology [address] [facility] Advanced Medicine 8th [place] [address] [place] [phone] Chris Mendes MD [address] [facility] [address] [place] [address] Social History Tobacco Use Types Packs/Day Years [...] on file 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
--- OUTSIDE RECORDS SUMMARY | 2024-03-25 10:58 | XMS_ITS | Encounter Summary ---
Author Organization [facility] Healthcare Address [address] [place] [address] Care Team Providers Care Acidity Tester Name Role Phone Chris Mendes MD Unavailable [phone] Cuba Larsen MD Primary Care Provider [phone] Keli Orozco RN Unavailable Unavailable Encounter Details Date Type Department Care Team (Late st Contact Info) Description 08/20/2023 [facility] Post Discharge Follow up phone call 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
--- OUTSIDE RECORDS SUMMARY | 2024-03-25 10:58 | XMS_ITS | Encounter Summary ---
Author Organization [facility] Healthcare Address [address] [place] [address] Care Team Providers Care Client Care Manager Name Role Phone Chris Mendes MD Unavailable [phone] Keli Orozco RN Unavailable Unavailable Alysa Newton RN Unavailable [phone] Cuba Larsen MD Primary Care Provider [phone] Reason for Visit * Reason Onset Date Comments Referral Request 02/25/2023 Encounter Details Date Type Department Care Team (Late st Contact Info) Description 02/25/[address] 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 CTION HEATING EQUIPMENT SETTER [employer]ION HEATING EQUIPMENT SETTER * Telephone Encounter - Negra Callahan - 02/25/2023 2:34 PM CST Referral Provider Name (if patient is seeing a nurse practitioner or physician plastic surgery assistant, list the INSTANT POWDER SUPERVISOR/PA, but also their collaborating doctor): Dr Endy Jara Specialty: Urology Address: [address] [place] [address], Zip: [place] [address] Diagnosis Code/Symptom/Reason Patient is being seen: Kidney stones Date of Appointment: 03.02.23 NPI#: [id number] Tax ID#: [id number] Is insurance in chart up to date? Yes Additional Comments: None Does message need to be routed? Yes-Action Needed CTION HEATING EQUIPMENT SETTER documented in this encounter Plan of Treatment Not on file documented as of this encounter Visit Diagnoses Diagnosis Kidney stones- Primary Calculus of kidney documented in this encounter Care Teams Client Care Manager Relationship Specialty Start Date End Date Cuba Larsen MD [address] [facility] [address] [place] [address] PCP - General Family Medicine 01/23/22 Chris Mendes MD Referring Physician Cardiology 12/23/21 Keli Orozco, patcher bowling ballLab Associate Cardiology 12/23/21 04/15/23 Alysa Newton, RN [address] [address] Lab Associate Cardiology 12/23/21 documented as of this encounter
--- OUTSIDE RECORDS SUMMARY | 2024-03-25 10:58 | XMS_ITS | Encounter Summary ---
Author Organization [facility] Healthcare Address [address] [place] [address] Care Team Providers Care Rig Operator Name Role Phone Chris Mendes MD Unavailable [phone] Cuba Larsen MD Primary Care Provider [phone] Keli Orozco RN Unavailable Unavailable Tami Mcknight RN Unavailable Unavailab le Reason for Referral * Consultation (Routine) - Closed Specialty Diagnoses / Procedures Referred By Indra t Referred To Contact Dermatology Diagnoses Pruritus Cuba Larsen MD [facility] [place] [address] Phone: tel: fax: Grace Cohen MD [address] [place] [address] Phone: tel: fax: Referral ID Status Reason Start Date Expiration Date V isits Requested Visits Authorized [id number] Closed Specialty Services Required 11/05/2023 12/04/2024 1 1 Question Answer Please select the performing region: External Order [171] To provider: GRACE COHEN [[id number]] # of visits: 1 Reason for Visit * Reason Onset Date Comments Referral Request 11/05/2023 Encounter Details Date Type Department Care Team (Late st Contact Info) Description 11/05/2023 Telephone [facility] Medical Group Family Medicine at [address] [place] [address] Cuba Larsen MD [facility] [address] [place] [address] Referral Request Social History Tobacco Use Types [...] on file 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 Grace Cohen Specialty: Dermatology Address: [address] [facility], Zip: [facility] [address] Diagnosis Code/Symptom/Reason Patient is being seen: hives and severe itching Date of Appointment: 11/09/2023 NPI#: [id number] Tax ID#: [id number] Is insurance in chart [...] disorder documented in this encounter Care Teams Rig Operator Relationship Specialty Start Date End Date Cuba Larsen MD PCP - General Family Medicine 01/23/22 Chris Mendes MD Referring Physician Cardiology 12/23/21 Keli Orozco, weighbridge operator Failure Coordinator Transplant 04/15/23 Tami Mcknight, weighbridge operator Failure Coordinator Cardiology 09/14/23 documented as of this encounter
--- OUTSIDE RECORDS SUMMARY | 2024-03-25 10:59 | XMS_ITS | Encounter Summary ---
Author Organization [facility] Healthcare Address [address] [place] [address] Care Team Providers Care Stitcher Feeder Name Role Phone Chris Mendes MD Unavailable [phone] Keli Orozco RN Unavailable Unavailable Alysa Newton RN Unavailable [phone] Cuba Larsen MD Primary Care Provider [phone] Encounter Details Date Type Department Care Team (Late st Contact Info) Description 01/05/2023 Telephone [facility] Transplant Heart [address] [address] Mail[address] [phone] [place] [address] Ita Mcdonough Social History Tobacco Use Types [...] on file 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 Asking for cardiac clearance for future teeth cleaning and possible tooth extraction. No date set yet. Fax number [phone]. Will review with Dr Mendes 01/06/23: Dr Mendes gave instructions for patient to hold Eliquis for 2 days prior to procedure and can restart the day after. Successfully faxed cardiac clearance form to [facility] * Telephone Encounter - Ita Mcdonough - 01/05/2023 2:51 PM CDT Hanh from [facility] called and stated that the PT is taking Eliquis and she wants toknow if it is okay to work on the teeth and possibly have an extraction. Please CB at [phone], option 3 documented in this encounter Plan of Treatment Not on file documented as of this encounter Visit Diagnoses Not on filedocumented in this encounter Care Teams Stitcher Feeder Relationship Specialty Start Date End Date Cuba Larsen MD [address] [facility] [address] [place] [address] PCP - General Family Medicine 01/23/22 Chris Mendes MD Referring Physician Cardiology 12/23/21 Keli Orozco, cinema operatorAcute Care Surgeon Cardiology 12/23/21 04/15/23 Alysa Newton, RN [address] [address] Acute Care Surgeon Cardiology 12/23/21 documented as of this encounter
--- OUTSIDE RECORDS SUMMARY | 2024-03-25 10:59 | XMS_ITS | Encounter Summary ---
Author Organization [facility] Address [address] [place] [address] Phone Care Team Providers Care Top Precipitator Operator Name Role Phone Ryann Galdamez Primary Care Provider [phone] Reason for Visit * Consultation (Routine) - Closed Specialty Diagnoses / Procedures Referred By Indra t Referred To Contact Neurology Diagnoses Cerebrovascular accident (CVA), unspecified mechanism (HCC) David Mitchell MD [address] [place] [address] Phone: tel: fax: [facility] Stroke [address] [facility] [address] [place] [address] Phone: tel: fax: Referral ID Status Reason Start Date Expiration Date V isits Requested Visits Authorized [id number] Closed Specialty Services Required 05/29/2021 06/28/2022 1 1 Encounter Details Date Type Department Care Team (Latest Contact Info) Description 09/10/2021 10:30 AM CDT Office Visit [facility] Stroke [address] [facility] Advanced Medicine [address] [place] [phone] Araceli Salcedo MD [address] [place] [address] Hemiparesis affecting left side as late effect [...] on file 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 MEDICATIONS: Reviewed in [facility]. PAST MEDICAL, FAMILY, SOCIAL HISTORY: Reviewed in [...] biceps, triceps, brachioradialis, knees, and ankles. COORDINATION: Hqwbhx-tsqy-tmliec and rapid alternating movements are minimally slow [...] The patient is currently working with her daycare worker related to her symptomatic hypotension. 2. Patient [...] Professor of Neurology [facility] RV/tm documented in this [...] 09/10/2021 documented in this encounter Care Teams Top Precipitator Operator Relationship Specialty Start Date End Date Ryann Galdamez PA PCP - General Psychology Department Chair 04/02/21 01/22/22 documented as of this encounter
--- OUTSIDE RECORDS SUMMARY | 2024-03-25 10:59 | XMS_ITS | Encounter Summary ---
Author Organization [facility] Healthcare Address [address] [place] [address] Care Team Providers Care Change House Attendant Name Role Phone Chris Mendes MD Unavailable [phone] Keli Orozco RN Unavailable Unavailable Davin Patino RN Unavailable [phone] Cuba Larsen MD Primary Care Provider [phone] Encounter Details Date Type Department Care Team (Late st Contact Info) Description 06/17/2022 Telephone 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 [address] [place] [address] PCP - General Family Medicine 01/23/22 Chris Mendes MD Referring Physician Cardiology 12/23/21 Keli Orozco, book or script editorMaster Merchandiser Cardiology 12/23/21 04/15/23 Davin Patino, RN [address] [facility] [address] [place] [address] Master Merchandiser Cardiology 12/23/21 documented as of this encounter
--- OUTSIDE RECORDS SUMMARY | 2024-03-25 10:59 | XMS_ITS | Encounter Summary ---
Author Organization [facility] Address [address] [facility] [address] [place] [address] Care Team Providers Care Food Mixer Repairer Name Role Phone Chris Mendes MD Unavailable [phone] Keli Orozco RN Unavailable Unavailable Alysa Newton RN Unavailable [phone] Cuba Larsen MD Primary Care Provider [phone] Reason for Visit * Reason Comments Back Pain Ongoing back pain Encounter Details Date Type Department Care Team (Late st Contact Info) Description 10/23/2022 2:15 PM CDT Office Visit [facility] Primary Care at [address] [address] Cuba Larsen MD [address] [address] Acute right-sided thoracic back pain (Primary Dx); [...] on file 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
--- OUTSIDE RECORDS SUMMARY | 2024-03-25 10:59 | XMS_ITS | Encounter Summary ---
Author Organization [facility] Address [address] [facility] [address] [place] [address] Care Team Providers Care Bartender Name Role Phone Chris Mendes MD Unavailable [phone] Keli Orozco RN Unavailable Unavailable Alysa Newton RN Unavailable [phone] Cuba Larsen MD Primary Care Provider [phone] Reason for Visit * Reason Onset Date Comments ACO Quality Outreach 08/07/2022 Dm lab Encounter Details Date Type Department Care Team ([facility] st Contact Info) Description 08/07/2022 Telephone [facility] Accountable Care Organization [address] [place] [address] Sherrell Schafer [address] [place] [address] ACO Quality Outreach (Dm lab) Social History [...] file 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 Thank you, Sherrell Schafer Patient Quality Document Processing Specialist [facility]- ACO documented in this encounter Plan of Treatment Not on file documented as of this encounter Visit Diagnoses Not on filedocumented in this encounter Care Teams Bartender Relationship Specialty Start Date End Date Cuba Larsen MD [address] [place] [address] PCP - General Family Medicine 01/23/22 Chris Mendes MD Referring Physician Cardiology 12/23/21 Keli Orozco, loss prevention detectiveOffline Cutter Cardiology 12/23/21 04/15/23 Alysa Newton, ARMANI [address] [place] [address] Offline Cutter Cardiology 12/23/21 documented as of this encounter
--- OUTSIDE RECORDS SUMMARY | 2024-03-25 10:59 | XMS_ITS | Encounter Summary ---
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 documented in this [...] documented as of this encounter Care Teams Seaport Planning Manager Relationship Specialty Start Date End Date Cuba Larsen MD [address] [address] PCP - General Family Medicine 01/23/22 Chris Mendes MD Referring Physician Cardiology 12/23/21 Keli Orozco, embossing toolsetterThermite Welder Cardiology 12/23/21 04/15/23 Alysa Newton, ARMANI [address] [address] Thermite Welder Cardiology 12/23/21 documented as of this encounter
--- OUTSIDE RECORDS SUMMARY | 2024-03-25 10:59 | XMS_ITS | Encounter Summary ---
Author Organization [facility] Address [address] [facility] [address] [place] [address] Care Team Providers Care Author Agent Name Role Phone Ryann Galdamez Primary Care Provider [phone] Reason for Visit * Reason Onset Date Comments Dull Headaches 08/01/2021 Encounter Details Date Type Department Care Team (Late st Contact Info) Description 08/01/2021 Telephone [facility] Family Medicine [address] [facility] [address] [place] [address] Ryann Galdamez PA [facility] [place] [address] Dull Headaches Social History Tobacco [...] on file 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 [...] on filedocumented in this encounter Care Teams Author Agent Relationship Specialty Start Date End Date Ryann Galdamez PA PCP - General Manager Wireless 04/02/21 01/22/22 documented as of this encounter
--- OUTSIDE RECORDS SUMMARY | 2024-03-25 10:59 | XMS_ITS | Encounter Summary ---
Author Organization [facility] Healthcare Address [address] [place] [address] Care Team Providers Care Alemite Operator Name Role Phone Ryann Galdamez Primary Care Provider [phone] Encounter Details Date Type Department Care Team (Late st Contact Info) Description 09/03/2021 Telephone [facility] Transplant Heart [address] 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
--- OUTSIDE RECORDS SUMMARY | 2024-03-25 10:59 | XMS_ITS | Encounter Summary ---
Author Organization [facility] Healthcare Address [address] [place] [address] Care Team Providers Care Gastroenterology Teacher Name Role Phone Chris Mendes MD Unavailable [phone] Keli Orozco RN Unavailable Unavailable Alysa Newton RN Unavailable [phone] Cuba Larsen MD Primary Care Provider [phone] Reason for Visit * Reason Onset Date Comments Referral Request 01/26/2023 Encounter Details Date Type Department Care Team (Late st Contact Info) Description 01/26/2023 Telephone [facility] Family Medicine [address] [place] [address] Cuba Larsen MD [address] [place] [address] Referral Request Social History Tobacco Use [...] file 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 F DOG LICENSE INSPECTOR * Telephone Encounter - Leandra Jean - 01/26/2023 12:55 PM CST Referral Provider Name (if patient is seeing a nurse practitioner or physician educational assistant, list the BEER COOLER/PA, but also their collaborating doctor): Shaylee Feliz Specialty: Dermatology Address: [address] [place] [address], Zip: [place] [address] Diagnosis Code/Symptom/Reason Patient is being seen: R23.9 Date of Appointment: 02.17.23 NPI#: [id number] Tax ID#: [id number] Is insurance in chart up to date? yes Additional Comments: Pt is needing an insurance referral also. Does message need to be routed? Yes-Action Needed F DOG LICENSE INSPECTOR documented in this encounter Plan of Treatment Not on file documented as of this encounter Visit Diagnoses Not on filedocumented in this encounter Care Teams Gastroenterology Teacher Relationship Specialty Start Date End Date Cuba Larsen MD [address] [address] PCP - General Family Medicine 01/23/22 Chris Mendes MD Referring Physician Cardiology 12/23/21 Keli Orozco, manager of drillingVideo Photographer Cardiology 12/23/21 04/15/23 Alysa Newton, RN [address] [address] Video Photographer Cardiology 12/23/21 documented as of this encounter
--- OUTSIDE RECORDS SUMMARY | 2024-03-25 10:59 | XMS_ITS | Encounter Summary ---
Author Organization [facility] Address [address] [place] [address] Phone Care Team Providers Care Program Management Intern Name Role Phone Chris Mendes MD Unavailable [phone] Keli Orozco RN Unavailable Unavailable Alysa Newton RN Unavailable [phone] Cuba Larsen MD Primary Care Provider [phone] Reason for Visit * Consultation (Routine) - Closed Specialty Diagnoses / Procedures Referred By Contac t Referred To Contact Cardiology Diagnoses Essential hypertension Atrial fibrillation, unspecified type (HCC) Chronic heart failure with preserved ejection fraction (CMS/HCC) (HCC) Cathleen Walker MD Phone: tel: fax: [facility] (All Locations) Referral ID Status Reason Start Date Expiration Date V isits Requested Visits Authorized [id number] Closed Specialty Services Required 01/02/2022 01/01/2023 12 12 Encounter Details Date Type Department Care Team (Late st Contact Info) Description 07/28/2022 2:20 PM CDT Office Visit [facility] Cardiology [address] [facility] 8th [place] [address] [place] [address] Chris Mendes MD [address] [place] [address] Chronic combined systolic (congestive) and diastolic (congestive) [...] on file 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 Aracelis are RNs Stop taking Diltiazem Take [...] Medicine Chris Mendes M.D. Cardiovascular Division Professor, [facility] Director, Heart Failure Program RETURN OFFICE VISIT NOTE Date of Visit: 07/28/22 Name: Prema Pearce : 1940 Medical Record: [id number] Correspondence: Cuba Larsen MD DIAGNOSES Persistent atrial [...] HOLLI 1.2 cm2 Mild coronary artery disease [facility] 08/2020: minimal luminal irregularities in left [...] to see Prema Pearce today at the [facility] for follow-up [...] WITH MEALS, Disp: 180 tablet, Rfl: 0 jflkserw-vbq-dlxv-FA-lutein 8 mg iron-400 mcg-300 mcg tablet, Take [...] mg BID for her high stroke risk ([id number]: 6). #. Mild coronary artery disease #. [...] in this encounter. Sincerely, Ned Urbina MD Web Application Dev Specialist, PGY 07/28/22 6:18 PM Cosigned by Chris [...] documented as of this encounter Care Teams Program Management Intern Relationship Specialty Start Date End Date Cuba Larsen MD [address] [address] PCP - General Family Medicine 01/23/22 Chris Mendes MD Referring Physician Cardiology 12/23/21 Keli Orozco, core dropperHead Scorer Cardiology 12/23/21 04/15/23 Alysa Newton, RN [address] [address] Head Scorer Cardiology 12/23/21 documented as of this encounter
--- OUTSIDE RECORDS SUMMARY | 2024-03-25 10:59 | XMS_ITS | Encounter Summary ---
Author Organization [facility] Address [address] [facility] [address] [place] [address] Care Team Providers Care Handkerchief Sample Clerk Name Role Phone Ryann Galdamez Primary Care Provider [phone] Reason for Visit * Reason Comments Follow-up Encounter Details Date Type Department Care Team (Late st Contact Info) Description 10/21/2021 11:00 AM CDT Office Visit [facility] Family Medicine [address] [facility] [address] [facility] [address] [place] [address] Ryann Galdamez PA [facility] [place], [place] [id number] Anxiety (Primary Dx); Iron deficiency anemia, unspecified [...] on file 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 She is not using any rcti-fpp-fbdceaa medication. She has not had any fevers [...] day with meals 180 tablet 1 ??? eercjsha-yni-nvkg-FA-lutein 8 mg iron-400 mcg-300 mcg tablet Take [...] report the blood pressure readings to her senior accountant analyst. Orders: - CBC with auto differential; Future - Comprehensive metabolic panel; Future - Hemoglobin A1c; Future - Microalbumin, urine, random; Future - Lipid panel; Future - TSH; Future - T4, free; Future Type 2 diabetes mellitus without complication, without long-term current use of insulin ([facility]) (HCC) (E11.9) Assessment & Plan: Patient advised [...] Referral Reason: Specialty Services Required Referral Location: [facility] Referred to Provider: Steve Blake [...] report the blood pressure readings to her senior accountant analyst. * Assessment & Plan Note - Ryann [...] D 25-OH 87 30 - 100 ng/mL [facility] Comment: Vitamin D Status ? 25-OH Vitamin D: Deficiency: ?<20 ng/mL Insufficiency: ? 20 - 29 ng/mL Optimal: ? > or = 30 ng/mL For 25-OH Vitamin D testing on patients on D2-supplementation and patients for whom quantitation of D2 and D3 fractions is required, the QuestAssureD() 25-OH VIT D, (D2,D3), LC/MS/MS is recommended: order code 60774 (patients >2yrs). See Note 1 Note 1 For additional information, please refer to http://education.BitePal/faq/TRK732 (This link is being provided for informational/ educational purposes only.) Blood specimen (specimen) 10/28/2021 9:10 AM CDT 10/28/2021 9:11 AM CDT [facility] - 10/29/2021 2:43 PM CDT FASTING:YES FASTING: YES us Ryann RASHID LAB BLOOD ORDERABLES Final Result [facility] [address] [place] [address] * T4, free (10/28/2021 9:10 AM CDT) Free T4 1.3 0.8 - 1.8 ng/dL [facility] Blood specimen (specimen) 10/28/2021 9:10 AM CDT 10/28/2021 9:11 AM CDT Narrative [facility] - 10/29/2021 2:43 PM CDT FASTING:YES FASTING: YES Ryann RASHID LAB BLOOD ORDERABLES Final Result Performing Organization Address [facility] de Phone Number JULIO CÉSAR [facility] [address] [place] [address] * TSH (10/28/2021 9:10 AM CDT) Pathologist [facility] TSH 3.36 0.40 - 4.50 mIU/L [facility] Blood specimen (specimen) 10/28/2021 9:10 AM CDT 10/28/2021 9:11 AM CDT Narrative [facility] - 10/29/2021 2:43 PM CDT FASTING:YES FASTING: YES Ryann RASHID LAB BLOOD ORDERABLES Final Result Performing Organization Address [facility] de Phone Number [facility] [address] [place] [address] * (ABNORMAL) Lipid panel (10/28/2021 9:10 AM CDT) [facility] Cholesterol 92 <200 mg/dL [facility] [...] LDL-C. Buzz PUENTE et al. WILFRIDO. 2013;310(19): 1775-4988 (http://education.OutSystems.Netrounds/faq/WGX160) Chol/HDL ratio 2.4 <5.0 (calc) [facility] [...] ORDERABLES Final Result Performing Organization Address [facility] Co de Phone Number [facility] [address] [address] [facility] [place] [address] * Microalbumin, urine, random (10/28/2021 9:10 AM [...] ORDERABLES Final Result Performing Organization Address [facility] Co de Phone Number [facility] [address] [facility] [place] [address] * (ABNORMAL) Hemoglobin A1c (10/28/2021 9:10 AM CDT) Hgb A1C 6.1(H) <5.7 % of total Hgb [facility] Comment: For someone without known [...] RASHID LAB BLOOD ORDERABLES Final Result [facility] [address] [place] [address] * (ABNORMAL) Comprehensive metabolic panel (10/28/2021 9:10 [...] LAB BLOOD ORDERABLES Final Result [facility] [address] [facility] JAREN Jeffrey [address] * (ABNORMAL) CBC with auto differential (10/28/2021 [...] LAB BLOOD ORDERABLES Final Result [facility] [address] [address] [facility] [place] [address] documented in this encounter Visit Diagnoses Diagnosis [...] 10/21/2021 documented in this encounter Care Teams Handkerchief Sample Clerk Relationship Specialty Start Date End Date Ryann Galdamez PA PCP - General Payroll Supervisor 04/02/21 01/22/22 documented as of this encounter
--- OUTSIDE RECORDS SUMMARY | 2024-03-25 10:59 | XMS_ITS | Encounter Summary ---
Author Organization [facility] Address [address] [facility] [address] [place] [address] Care Team Providers Care Screen Cleaner Name Role Phone Chris Mendes MD Unavailable [phone] Keli Orozco RN Unavailable Unavailable Alysa Newton RN Unavailable [phone] Cuba Larsen MD Primary Care Provider [phone] Reason for Visit * Reason Onset Date Comments Appointment Request 07/24/2022 Encounter Details Date Type Department Care Team (Late st Contact Info) Description 07/24/2022 Telephone 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 She is supposed to see him after her Echo testing and blood draw, wanted follow up call for clarification for appointment. Caller???s Call back #: [phone] Does message need to be routed? Yes-Action Needed documented in this encounter Plan of Treatment Not on file documented as of this encounter Visit Diagnoses Not on filedocumented in this encounter Care Teams Screen Cleaner Relationship Specialty Start Date End Date Cuba Larsen MD [address] [place] [address] PCP - General Family Medicine 01/23/22 Chris Mendes MD Referring Physician Cardiology 12/23/21 Keli Orozco, airborne operations managerPaper Production Engineer Cardiology 12/23/21 04/15/23 Alysa Newton, RN [address] [facility] [address] [place] [address] Paper Production Engineer Cardiology 12/23/21 documented as of this encounter
--- OUTSIDE RECORDS SUMMARY | 2024-03-25 10:59 | XMS_ITS | Encounter Summary ---
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 Please update med list. * Telephone Encounter - Crissy Hunt - 07/16/2021 10:14 AM CDT Patient was in yesterday and per her office visit diltiazem was discontinued. She states that she was put on that by her technical solutions consultant recently. Do you want her off this med? Or should it stay on her med list and she continue to follow up with her technical solutions consultant with this medication? Please advise documented in this encounter Plan of Treatment Not on file documented as of this encounter Visit Diagnoses Not on filedocumented in this encounter Care Teams Compensation Director Relationship Specialty Start Date End Date Ryann Galdamez PA PCP - General Counter Supervisor 04/02/21 01/22/22 documented as of this encounter
--- OUTSIDE RECORDS SUMMARY | 2024-03-25 10:59 | XMS_ITS | Encounter Summary ---
Author Organization [facility] Address [address] [facility] [address] [place] [address] Care Team Providers Care Body Repairer Name Role Phone Chris Mendes MD Unavailable [phone] Keli Orozco RN Unavailable Unavailable Alysa Newton RN Unavailable [phone] Cuba Larsen MD Primary Care Provider [phone] Encounter Details Date Type Department Care Team (Late st Contact Info) Description 06/25/[address] 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 * Telephone Encounter - Geovanna Parks - 06/25/2022 11:33 AM CDT Referral Provider Name (if patient is seeing a nurse practitioner or physician assistant professor in family studies, list the SET UP MECHANIC COATING MACHINES/PA, but also their collaborating doctor): Araceli Jefferson Specialty: Neurology Address: [address], Zip: [place] [address] Diagnosis Code/Symptom/Reason Patient is being seen: I69.354 Date of Appointment: 07/11 NPI#: [id number] Tax ID#: [id number] Is insurance in chart up to date? Yes Caller???s Callback #: [phone] Additional Comments: Does message need to be routed?Yes-Action Needed documented in this encounter Plan of Treatment Not on file documented as of this encounter Visit Diagnoses Not on filedocumented in this encounter Care Teams Body Repairer Relationship Specialty Start Date End Date Cuba Larsen MD [address] [facility] [address] [place] [address] PCP - General Family Medicine 01/23/22 Chris Mendes MD Referring Physician Cardiology 12/23/21 Keli Orozco, industrial sociologistWell Treatment Offsider Cardiology 12/23/21 04/15/23 Alysa Newton, RN [address] [address] Well Treatment Offsider Cardiology 12/23/21 documented as of this encounter
--- OUTSIDE RECORDS SUMMARY | 2024-03-25 10:59 | XMS_ITS | Encounter Summary ---
Author Organization [facility] Address [address] [facility] [address] [place] [address] Care Team Providers Care Law Enforcement Instructor Name Role Phone Chris Mendes MD Unavailable [phone] Keli Orozco RN Unavailable Unavailable Alysa Newton RN Unavailable [phone] Cuba Larsen MD Primary Care Provider [phone] Reason for Visit * Reason Onset Date Comments ACO Quality Outreach 08/07/2022 Dm lab Encounter Details Date Type Department Care Team ([facility] st Contact Info) Description 08/07/[address] 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 Thank you, Sherrell Schafer Patient Quality Document Preparation Specialist [facility]- [facility] documented in this encounter Plan of Treatment Not on file documented as of this encounter Visit Diagnoses Not on filedocumented in this encounter Care Teams Law Enforcement Instructor Relationship Specialty Start Date End Date Cuba Larsen MD [address] [address] PCP - General Family Medicine 01/23/22 Chris Mendes MD Referring Physician Cardiology 12/23/21 Keli Orozco, attendance clerkHealth And Wellness Advisor Cardiology 12/23/21 04/15/23 Alysa Newton, ARMANI [address] [address] Health And Wellness Advisor Cardiology 12/23/21 documented as of this encounter
--- OUTSIDE RECORDS SUMMARY | 2024-03-25 10:59 | XMS_ITS | Encounter Summary ---
Author Organization [facility] Healthcare Address [address] [place] [address] Care Team Providers Care Enterprise Applications Manager Name Role Phone Ryann Galdamez Primary Care Provider [phone] Encounter Details Date Type Department Care Team (Late st Contact Info) Description 07/24/2021 Telephone 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 Should she still Take? [facility] [place] documented in this encounter Plan of Treatment [...] documented as of this encounter Care Teams Enterprise Applications Manager Relationship Specialty Start Date End Date Ryann Galdamez PA PCP - General Chief Technician X Ray 04/02/21 01/22/22 documented as of this encounter
--- OUTSIDE RECORDS SUMMARY | 2024-03-25 10:59 | XMS_ITS | Encounter Summary ---
Author Organization [facility] Address [address] [facility] [address] [place] [address] Care Team Providers Care Shoe Worker Name Role Phone Chris Mendes MD Unavailable [phone] Keli Orozco RN Unavailable Unavailable Alysa Newton RN Unavailable [phone] Cuba Larsen MD Primary Care Provider [phone] Reason for Visit * Reason Onset Date Comments Medication Request 12/04/2022 Encounter Details Date Type Department Care Team (Late st Contact Info) Description 12/04/2022 Telephone [facility] Family Medicine [address] [facility] [address] [place] [address] Cuba Larsen MD [address] [place] [address] Medication Request Social History Tobacco Use [...] on file 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 Caller???s Call back #: [phone] Does message need to be routed? Yes-Action [...] should be sent to: [id number] [place] - [address] [address] [address] [place] [address] Caller???s Callback #: [phone] Additional Comments: N/A Does message need to [...] documented as of this encounter Care Teams Shoe Worker Relationship Specialty Start Date End Date Cuba Larsen MD [address] [facility] [address] [place] [address] PCP - General Family Medicine 01/23/22 Chris Mendes MD Referring Physician Cardiology 12/23/21 Keli Orozco, blood donor unit assistantCivil Celebrant Cardiology 12/23/21 04/15/23 Alysa Newton, ARMANI [address] [facility] [address] [place] [address] Civil Celebrant Cardiology 12/23/21 documented as of this encounter
--- OUTSIDE RECORDS SUMMARY | 2024-03-25 10:59 | XMS_ITS | Encounter Summary ---
Author Organization [facility] Address [address] [facility] [address] [place] [address] Care Team Providers Care Outside Dealer Sales Representative Name Role Phone Ryann Galdamez Primary Care Provider [phone] Encounter Details Date Type Department Care Team (Late st Contact Info) Description 09/04/2021 Telephone [facility] Family Medicine [address] [facility] [address] [place] [address] Ryann Galdamez PA [facility] [place] [address] Social History Tobacco Use Types [...] file 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 Dr. 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
--- OUTSIDE RECORDS SUMMARY | 2024-03-25 10:59 | XMS_ITS | Encounter Summary ---
Author Organization [facility] Address [address] [place] [address] Phone Care Team Providers Care Enterprise Application Developer Name Role Phone Ryann Galdamez Primary Care Provider [phone] Reason for Visit * Reason Comments Anemia Follow-up * Consultation (Routine) - Closed Specialty Diagnoses / Procedures Referred By Indra muñoz Referred To Contact Hematology Diagnoses Iron deficiency anemia, unspecified iron deficiency anemia type Ryann Galdamez PA Phone: tel: fax: [facility] Hematology [address] [place] [phone] Referral ID Status Reason Start Date Expiration Date V isits Requested Visits Authorized [id number] Closed Specialty Services Required 07/01/2021 06/30/2022 12 12 Encounter Details Date Type Department Care Team (Late st Contact Info) Description 10/01/2021 2:15 PM CDT Office Visit 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
--- OUTSIDE RECORDS SUMMARY | 2024-03-25 10:59 | XMS_ITS | Encounter Summary ---
Author Organization [facility] Healthcare Address [address] [place] [address] Care Team Providers Care Microbiology Instructor Name Role Phone Chris Mendes MD Unavailable [phone] Keli Orozco RN Unavailable Unavailable Alysa Newton RN Unavailable [phone] Cuba Larsen MD Primary Care Provider [phone] Reason for Referral * Diagnostic Imaging (Routine) - Closed Specialty Diagnoses / Procedures Referred By Contac t Referred To Contact Diagnoses Acute midline thoracic back pain Procedures XR Spine Thoracic 3 Vw Diane Sheriff PA [facility] [address] [place] [address] Phone: tel: fax: [address] [phone] Referral ID Status Reason Start Date Expiration Date Visits Re quested Visits Authorized [id number] Closed 10/09/2022 11/08/2023 1 1 Reason for Visit * Diagnostic Imaging (Routine) - Closed Specialty Diagnoses / Procedures Referred By Contac t Referred To Contact Diagnoses Acute midline thoracic back pain Procedures XR Spine Thoracic 3 Vw Diane Sheriff PA [address] [facility] [address] [place] [address] Phone: tel: fax: [address] [address] Referral ID Status Reason Start Date Expiration Date Visits Re quested Visits Authorized [id number] Closed 10/09/2022 11/08/2023 1 1 Encounter Details Date Type Department Care Team (Latest Contact Info) Description 10/09/2022 2:05 PM CDT - 10/09/2022 11:59 PM CDT Hospital Encounter [facility] Diagnostic Imaging [address] [place] [address] Acute midline thoracic back pain Discharge Disposition: [...] file 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 ??Wufo-qe-hlgkzpvq multilevel facet arthropathy. ??On the frontal view, [...] D: ??10/11/2022 9:58 PM T: Report ID: [id number] Reading Location: ??[id number] Procedure Note Frank Minaya MD - 10/11/2022 [...] change. Moderate tosevere multilevel disc space narrowing. Ldct-ti-rqwblxcb multilevel facet arthropathy. On the frontal view, [...] signed by Frank WHITE T: Report ID: [id number] Reading Location: [id number] Diane Marquis IMG XR PROCEDURES Final Result documented in this encounter Visit Diagnoses Diagnosis Acute midline thoracic back pain documented in this encounter Care Teams Microbiology Instructor Relationship Specialty Start Date End Date Cuba Larsen MD [address] [facility] [address] [place] [address] PCP - General Family Medicine 01/23/22 Chris Mendes MD Referring Physician Cardiology 12/23/21 Keli Orozco, supervisor finalFisher Gill Net Cardiology 12/23/21 04/15/23 Alysa Newton, RN [address] [facility] [address] [place] [address] [facility] Cardiology 12/23/21 documented as of this encounter
--- OUTSIDE RECORDS SUMMARY | 2024-03-25 10:59 | XMS_ITS | Encounter Summary ---
Author Organization [facility] Address [address] [facility] [address] [place] [address] Care Team Providers Care Pipe Line Walker Name Role Phone Ryann Galdamez Primary Care Provider [phone] Reason for Visit * Reason Onset Date Comments ACO Quality Outreach 12/17/2021 Encounter Details Date Type Department Care Team (Late st Contact Info) Description 12/17/2021 Telephone [facility] Accountable Care Organization [address] [place] [address] Keli Durham [address] [place] [address] [address] [place] [address] [facility] Quality Outreach Social History Tobacco Use Types [...] file 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 Refill of Rosuvastatin 20 mg tab was due 12/17/21. Patient last filled a 90 day supply. Filled 12/13/21 Keli Durham Patient Outreach Project Geophysicist [facility] [phone] documented in this encounter Plan of Treatment Not on file documented as of this encounter Visit Diagnoses Not on filedocumented in this encounter Care Teams Pipe Line Walker Relationship Specialty Start Date End Date Ryann Galdamez PA PCP - General Sock Boarder 04/02/21 01/22/22 documented as of this encounter
--- OUTSIDE RECORDS SUMMARY | 2024-03-25 10:59 | XMS_ITS | Encounter Summary ---
Author Organization [facility] Healthcare Address [address] [place] [address] Care Team Providers Care Ice Delivery Driver Name Role Phone Chris Mendes MD Unavailable [phone] Keli Orozco RN Unavailable Unavailable Alysa Newton RN Unavailable [phone] Cuba Larsen MD Primary Care Provider [phone] Reason for Visit * Reason Onset Date Comments Referral Request 12/30/2022 Encounter Details Date Type Department Care Team (Late st Contact Info) Description 12/30/2022 Telephone [facility] Family Medicine [address] [place] [address] Cuba Larsen MD [address] [place] [address] Referral Request Social History Tobacco Use [...] on file 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 [...] the Fax number to the office is: [phone] Caller???s Call back #: [phone]. Does message need to be routed? Yes-Action [...] is seeing a nurse practitioner or physician ophthalmic assistant, list the DRAWING BOX TENDER/PA, but also their collaborating doctor): Ilana Tavera Specialty: Dentistry Address: [address] [place] [address] [address] [facility], Zip: [place] [address] Diagnosis Code/Symptom/Reason Patient is being seen: Routine exam and cleaning Date of Appointment: 01/05/23 NPI#: [id number] Tax ID#: [id number] Is insurance in chart up to date? Yes Caller???s Callback #: [phone] Additional Comments: Patient stated [facility] told her [...] exam documented in this encounter Care Teams Ice Delivery Driver Relationship Specialty Start Date End Date Cuba Larsen MD [address] [facility] [address] [place] [address] PCP - General Family Medicine 01/23/22 Chris Mendes MD Referring Physician Cardiology 12/23/21 Keli Orozco, separating machine operatorFruit Or Nut Farmer Cardiology 12/23/21 04/15/23 Alysa Newton, ARMANI [address] [place] [address] Fruit Or Nut Farmer Cardiology 12/23/21 documented as of this encounter
--- OUTSIDE RECORDS SUMMARY | 2024-03-25 10:59 | XMS_ITS | Encounter Summary ---
Author Organization [facility] Address [address] [place] [address] Phone Care Team Providers Care Director Of Mobile Marketing Name Role Phone Chris Sanchez MD Unavailable [phone] Keli Orozco RN Unavailable Unavailable Alysa Newton RN Unavailable [phone] Cuba Larsen MD Primary Care Provider [phone] Reason for Referral * Cardiology (Routine) - Closed Specialty Diagnoses / Procedures Referred By Indra t Referred To Contact Diagnoses Chronic combined systolic (congestive) and diastolic (congestive) heart failure (HCC) Procedures Transthoracic Echo (TTE) Complete W Doppler/CF Chris Sanchez MD Phone: tel: fax: [address] [address] Referral ID Status Reason Start Date Expiration Date Visits Re quested Visits Authorized [id number] Closed 02/03/2023 03/04/2024 1 1 ULTING SERVICES PROJECT MANAGER Reason for Visit * Consultation (Routine) - Closed Specialty Diagnoses / Procedures Referred By Contac t Referred To Contact Cardiology Diagnoses Mitral valve prolapse Cuba Larsen MD [address] [facility] [address] [place] [address] Phone: tel: fax: Chris Sanchez MD [address] [facility] [address] [place] [address] Phone: tel: fax: Referral ID Status Reason Start Date Expiration Date V isits Requested Visits Authorized [id number] Closed Specialty Services Required 01/23/2023 01/25/2024 12 12 Encounter Details Date Type Department Care Team (Late st Contact Info) Description 02/03/2023 1:20 PM CONSULTING SERVICES PROJECT MANAGER Office Visit [facility] Cardiology [address] [facility] Medicine 8th [place] [address] [place] [address] Chris Sanchez MD [address] [id number] Chronic combined systolic (congestive) and diastolic (congestive) [...] on file 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 Gender Identity Not on file Sexual Orientation Not on file documented as of this encounter Last Filed Vital Signs Vital Sign Reading Time Taken Comments Blood Pressure 118/81 02/03/2023 1:16 PM CONSULTING SERVICES PROJECT MANAGER Pulse 79 02/03/2023 1:16 PM CONSULTING SERVICES PROJECT MANAGER Temperature - - Respiratory Rate - - Oxygen Saturation 97% 02/03/2023 1:16 PM CONSULTING SERVICES PROJECT MANAGER Inhaled Oxygen Concentration - - Weight 83 kg (183 lb) 02/03/2023 1:16 PM CONSULTING SERVICES PROJECT MANAGER Height 154.9 cm (5' 1 ) 02/03/2023 1:16 PM CONSULTING SERVICES PROJECT MANAGER Body Mass Index 34.58 02/03/2023 1:16 PM CONSULTING SERVICES PROJECT MANAGER documented in this encounter Patient Instructions * Patient Instructions* Keli Orozco RN - 02/03/2023 1:20 PM CONSULTING SERVICES PROJECT MANAGER Our office number is [phone]. Alysa and Keli are the nurses. No medication changes Return back in 6 months for follow up and echo ULTING SERVICES PROJECT MANAGER ULTING SERVICES PROJECT MANAGER documented in this encounter Progress Notes * Ned Urbina MD - 02/03/2023 1:20 PM CST Images from the original note were not included. Department of Medicine Chris Sanchez M.D. Cardiovascular Division Professor, [facility] Director, Heart Failure Program RETURN OFFICE VISIT NOTE Date of Visit: 02/03/23 Name: Prema Pearce : 1940 Medical Record: [id number] Correspondence: Cuba Larsen MD DIAGNOSES Persistent atrial [...] to see Prema Pearce today at the [facility] for follow-up [...] WITH MEALS, Disp: 180 tablet, Rfl: 0 admubbun-hlj-jigg-FA-lutein 8 mg iron-400 mcg-300 mcg tablet, Take [...] mg BID for her high stroke risk ([id number]: 6). #. Mild coronary artery disease #. [...] Question: Please select the performing department: Answer: [facility] [152] Order Specific Question: Contrast Default Option [...] Chris Sanchez MD at 02/03/2023 11:44 PM CONSULTING SERVICES PROJECT MANAGER ULTING SERVICES PROJECT MANAGER ULTING SERVICES PROJECT MANAGER Associated attestation - Chris Sanchez MD - 02/03/2023 11:44 PM CONSULTING SERVICES PROJECT MANAGER I have seen and examined the patient. [...] #: 0 Date of : 1940 (F) Ice Cream Server: Jayla Wilson RDCS Referring Physician: CHRIS SANCHEZ MD Contrast Agent: 1.1 ml Optison Administered, (1.9 ml wasted). Contrast Administered by: Miguel Harris RN Supervised/Interpreted by: Viktor Cabrales MD Diagnosis: Location: [facility] Reason for test: Chronic CHF MV Structure: [...] 2=Hypo 3=Akinetic 4=Dyskin./Aneurysm 0=Not visualized) Parasternal [place]:MAS=1 BAS=1 MIL=1 NIGHAT=1 Parasternal [place]:MAS=1 MIS=1 KY=1 MIL=1 MAL=1 MA=1 Apical 4 Chambers:=1 MIS=1 BIS=1 BAL=1 MAL=1 AL=1 AC=1 Apical 2 Chambers:AI=1 KY=1 BI=1 BA=1 MA=1 AA=1 AC=1 LV Global [...] MD By signing this report, the attending fixer boarding room certifies that he or she has personally supervised and interpreted the echocardiogram and has reviewed and or edited and agrees with the written comments contained within the report. Procedure Note Viktor Lauren MD - 07/27/2023 Patient name: Prema Pearce Date of test: 07/27/2023 Type of test: TTE w/Doppler [facility] #: 0 Date of : 1940 (F) Ice Cream Server: Jayla Wilson [facility] Referring Physician: CHRIS SANCHEZ MD Contrast Agent: 1.1 ml Optison Administered, (1.9 ml wasted). Contrast Administered by: Miguel Harris RN Supervised/Interpreted by: Viktor Cabrales MD Diagnosis: Location: [facility] Reason for test: Chronic CHF MV Structure: [...] 2=Hypo 3=Akinetic 4=Dyskin./Aneurysm 0=Not visualized) Parasternal [place]:MAS=1 BAS=1 MIL=1 NIGHAT=1 Parasternal [place]:MAS=1 MIS=1 KY=1 MIL=1 MAL=1 MA=1 Apical 4 Chambers:=1 MIS=1 BIS=1 BAL=1 MAL=1 AL=1 AC=1 Apical 2 Chambers:AI=1 KY=1 BI=1 BA=1 MA=1 AA=1 AC=1 LV Global [...] MD By signing this report, the attending fixer boarding room certifies that he or she has personally [...] 02/03/2023 documented in this encounter Care Teams Director Of Mobile Marketing Relationship Specialty Start Date End Date Cuba Larsen MD [address] [facility] [address] [place] [address] PCP - General Family Medicine 01/23/22 Chris Sanchez MD Referring Physician Cardiology 12/23/21 Keli Orozco, consulting sales executiveHouse Player Cardiology 12/23/21 04/15/23 Alysa Newton, RN [address] [facility] [address] [place] [address] House Player Cardiology 12/23/21 documented as of this encounter
--- OUTSIDE RECORDS SUMMARY | 2024-03-25 10:59 | XMS_ITS | Encounter Summary ---
Author Organization [facility] Healthcare Address [address] [place] [address] Care Team Providers Care Member Of The Legislative Assembly Name Role Phone Ryann Galdamez Primary Care Provider [phone] Chris Mendes MD Unavailable [phone] Keli Orozco RN Unavailable Unavailable Alysa Newton RN Unavailable [phone] Encounter Details Date Type Department Care Team (Late st Contact Info) Description 01/15/2022 Telephone [facility] Transplant Heart [address] [address] [phone] [place] [address] Maryann Faye Social History Tobacco Use Types [...] on file 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
--- OUTSIDE RECORDS SUMMARY | 2024-03-25 10:59 | XMS_ITS | Encounter Summary ---
Author Organization [facility] Address [address] [facility] [address] [place] [address] Care Team Providers Care Legal Adviser Name Role Phone Chris Mendes MD Unavailable [phone] Keli Orozco RN Unavailable Unavailable Alysa Newton RN Unavailable [phone] Cuba Larsen MD Primary Care Provider [phone] Reason for Visit * Reason Onset Date Comments Test Results 08/15/2022 Encounter Details Date Type Department Care Team (Late st Contact Info) Description 08/15/2022 Telephone [facility] Medical [facility] Family Medicine [address] [facility] [address] [place] [address] Cuba Larsen MD [address] [place] [address] [id number] Test Results Social History Tobacco Use Types [...] on file 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 [facility] Did provider dictate result yet? Yes Where were results relayed from in the chart? Imaging Tab Caller's Callback #: [phone] Additional Questions/Comments: Results relayed to patient, she voices understanding. She would liketo take therapy at [facility] in [place]. She was asking if the [facility] referral [...] region documented in this encounter Care Teams Legal Adviser Relationship Specialty Start Date End Date Cuba Larsen MD [address] [facility] [address] [place] [address] PCP - General Family Medicine 01/23/22 Chris Mendes MD Referring Physician Cardiology 12/23/21 Keli Orozco, gold frame assemblerRewinder Operator Cardiology 12/23/21 04/15/23 Alysa Newton, ARMANI [address] [facility] [address] [place] [address] Rewinder Operator Cardiology 12/23/21 documented as of this encounter
--- OUTSIDE RECORDS SUMMARY | 2024-03-25 10:59 | XMS_ITS | Encounter Summary ---
Author Organization [facility] Address [address] [place] [address] Phone Care Team Providers Care Sole Buffer Name Role Phone Ryann Galdamez Primary Care Provider [phone] Encounter Details Date Type Department Care Team (Late st Contact Info) Description 09/03/2021 Telephone [facility] Cardiology [address] [facility] Advanced Medicine 8th [place] [address] [place] [address] Chris Mendes MD [address] [facility] [address] [place], [place] [address] Social History Tobacco Use Types Packs/Day Years [...] on file 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 The nurse complex case manager would like the nurse to reach out to the pt. documented in this encounter Plan of Treatment Not on file documented as of this encounter Visit Diagnoses Not on filedocumented in this encounter Care Teams Sole Buffer Relationship Specialty Start Date End Date Ryann Galdamez PA PCP - General Overhead Line Worker 04/02/21 01/22/22 documented as of this encounter
--- OUTSIDE RECORDS SUMMARY | 2024-03-25 10:59 | XMS_ITS | Encounter Summary ---
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 documented in this encounter Plan of Treatment Not on file documented as of this encounter Visit Diagnoses Not on filedocumented in this encounter Care Teams Scientist Engineer Relationship Specialty Start Date End Date Ryann Galdamez PA PCP - General Camera Technician 04/02/21 01/22/22 documented as of this encounter
--- OUTSIDE RECORDS SUMMARY | 2024-03-25 10:59 | XMS_ITS | Encounter Summary ---
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
--- OUTSIDE RECORDS SUMMARY | 2024-03-25 10:59 | XMS_ITS | Encounter Summary ---
Author Organization [facility] Address [address] [facility] [address] [place] [address] Care Team Providers Care Splicing Technician Name Role Phone Ryann Galdamez Primary Care Provider [phone] Reason for Visit * Reason Onset Date Comments med refill 07/17/2021 Encounter Details Date Type Department Care Team (Late st Contact Info) Description 07/17/[address] 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
--- OUTSIDE RECORDS SUMMARY | 2024-03-25 10:59 | XMS_ITS | Encounter Summary ---
Author Organization [facility] Medical [facility] Address [address] [facility] [address] [place] [address] Care Team Providers Care Agricultural Sciences Professor Name Role Phone Chris Mendes MD Unavailable Keli Orozco RN Unavailable Unavailable Alysa Newton RN Unavailable [phone] Cuba Larsen MD Primary Care Provider [phone] Reason for Visit * Reason Onset Date Comments Back Pain 10/23/2022 Encounter Details Date Type Department Care Team (Late st Contact Info) Description 10/23/2022 Nurse Triage 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 Gender Identity Not on file Sexual Orientation [...] lasts > 2 weeks Protocols used: Back [id number]-AY * Telephone Encounter - Fay Lemus - 10/23/2022 10:03 AM CDT Regarding: Severe back pain ----- Message from Geovanna Parks sent at 10/23/2022 10:02 AM CDT ----- Symptom Based Call Caller's Callback #: [phone] Chief Complaint(s): Severe back pain Duration: about [...] on filedocumented in this encounter Care Teams Agricultural Sciences Professor Relationship Specialty Start Date End Date Cuba Larsen MD [address] [facility] [address] [place] [address] PCP - General Family Medicine 01/23/22 Chris Mendes MD Referring Physician Cardiology 12/23/21 Keli Orozco, edge cutting machine operatorDocument Clerk Cardiology 12/23/21 04/15/23 Alysa Newton, RN [address] [address] Document Clerk Cardiology 12/23/21 documented as of this encounter
--- OUTSIDE RECORDS SUMMARY | 2024-03-25 10:59 | XMS_ITS | Encounter Summary ---
Author Organization [facility] Healthcare Address [address] [place] [address] Care Team Providers Care Special Education Secretary Name Role Phone Ryann Galdamez Primary Care Provider [phone]- [phone] Encounter Details Date Type Department Care Team (Late st Contact Info) Description 10/11/[address] [facility] Transplant Heart [address] 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
--- OUTSIDE RECORDS SUMMARY | 2024-03-25 10:59 | XMS_ITS | Encounter Summary ---
Author Organization [facility] Address [address] [address] Care Team Providers Care Polymerization Supervisor Name Role Phone Ryann Galdamez Primary Care Provider [phone]- [phone] Reason for Referral * Diagnostic Imaging (Routine) - Closed Specialty Diagnoses / Procedures Referred By Indra muñoz Referred To Contact Diagnoses Closed fracture of distal end of left fibula Procedures XR Ankle Left 3 or More Views Kvng Nash DO [address] [place] [address] Phone: tel: fax: [address] [address] Referral ID Status Reason Start Date Expiration Date Visits Re quested Visits Authorized [id number] Closed 10/17/2021 11/16/2022 1 1 Reason for Visit * Reason Comments Fracture Pain * Consultation (Routine) - Closed Specialty Diagnoses / Procedures Referred By Indra muñoz Referred To Contact Orthopedic Surgery Diagnoses Traumatic closed nondisplaced fracture of distal fibula, left, with routine healing, subsequent encounter Kvng Nash DO [address] [facility] [address] [place] [address] Phone: tel: fax: [facility] Orthopedics and Sports Medicine [facility] [address] [place] [address] Phone: tel: fax: Referral ID Status Reason Start Date Expiration Date V isits Requested Visits Authorized [id number] Closed Specialty Services Required 06/11/2021 06/10/2022 12 12 Encounter Details Date Type Department Care Team (Late st Contact Info) Description 10/17/2021 11:15 AM CDT Office Visit [facility] Orthopedics and Sports Medicine [facility] [address] [place] [address] Kvng Nash DO [address] [facility] [address] [place] [address] Closed fracture of distal end of [...] on file 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 FINDINGS: There is a healing distal left [...] AM - Electronically signed by Frank FERGUSON: MRATY Report ID: [id number] Reading Location: [id number] Kvng Nash DO IMG XR PROCEDURES Final Result documented in this encounter Visit Diagnoses Diagnosis Closed fracture of distal end of left fibula- Primary Closed fracture of distal end of left fibula documented in this encounter Care Teams Polymerization Supervisor Relationship Specialty Start Date End Date Ryann Galdamez PA PCP - General Financial Services Technician 04/02/21 01/22/22 documented as of this encounter
--- OUTSIDE RECORDS SUMMARY | 2024-03-25 10:59 | XMS_ITS | Encounter Summary ---
Author Organization [facility] Medical [facility] Address [address] [facility] [address] [place] [address] Care Team Providers Care Credit And Loan Collections Supervisor Name Role Phone Chris Mendes MD Unavailable [phone] Keli Orozco RN Unavailable Unavailable Alysa Newton RN Unavailable Ce Larsen MD Primary Care Provider [phone] Reason for Visit * Reason Comments Follow-up Pt is here for a karis ck up. She was a pt of Ryann Downing Encounter Details Date Type Department Care Team (Late st Contact Info) Description 02/13/2022 11:15 AM LAST MODEL MAKER Office Visit [facility] Medical [facility] Primary Care at [address] [address] Ce Larsen MD [address] [address] Type 2 diabetes mellitus without [...] file Legal Sex Female 4:20 AM LAST MODEL MAKER Gender Identity Not on file Sexual Orientation Not on file documented as of this encounter Last Filed Vital Signs Vital Sign Reading Time Taken Comments Blood Pressure 122/78 02/13/2022 11:36 AM LAST MODEL MAKER Pulse 62 02/13/2022 11:36 AM LAST MODEL MAKER Temperature 36.9 ??C (98.5 ??F) 02/13/2022 1 1:36 AM LAST MODEL MAKER Respiratory Rate - - Oxygen Saturation 98% 02/13/2022 11: 36 AM LAST MODEL MAKER Inhaled Oxygen Concentration - - Weight 76.1 kg (167 lb 12.8 oz) 022 11:36 AM LAST MODEL MAKER Height 154.9 cm (5' 1 ) 02/13/2022 11:3 6 AM LAST MODEL MAKER Body Mass Index 31.71 02/13/2022 11:36 AM LAST MODEL MAKER documented in this encounter Ordered Prescriptions Prescription [...] times a day withmeals 180 tablet 1 vgdgoxbh-rqp-twkd-FA-lutein 8 mg iron-400 mcg-300 mcg tablet Take [...] complication, without long-term current use of insulin ([facility] ([facility]) (E11.9) (Primary) - labs UTD - A1C 6 - diet - exercise Essential hypertension (I10) - low salt diet, exercise - cont meds Gastro-esophageal reflux disease without esophagitis (K21.9) - cont PPI Paroxysmal atrial fibrillation ([facility]) ([facility]) (I48.0) - sees cardio, cont meds Acquired [...] Physical Therapy Number of Visits Requested: 99 MODEL MAKER documented in this encounter Miscellaneous Notes * Addendum Note - Ce Larsen MD - 02/13/2022 11:15 AM CSTAddended by: CE LARSEN on: 02/13/2022 12:05 PM Modules accepted: Orders MODEL MAKER documented in this encounter Plan of Treatment Not on file documented as of this encounter Procedures Procedure Name Priority Date/Time Associated Diagnosis Comments THYROID FUNCTION CASCADE Routine 07/22/2022 9:18 AM CDT Acquired hypothyroidism CBC WITH AUTO DIFFERENTIAL Routine 07/22/2022 9:18 AM CDT Type 2 diabetes mellitus without complication, without long-term current use of insulin ([facility]) ([facility]) HEMOGLOBIN A1C Routine 07/22/2022 9:18 AM CDT Type 2 diabetes mellitus without complication, without long-term current use of insulin ([facility]) ([facility]) LIPID PANEL Routine 07/22/2022 9:18 AM CDT Type 2 diabetes mellitus without complication, without long-term current use of insulin ([facility]) ([facility]) COMPREHENSIVE METABOLIC PANEL Routine 07/22/2022 9:18 AM CDT Type 2 diabetes mellitus without complication, without long-term current use of insulin ([facility]) (HCC) documented in this encounter Results * (ABNORMAL) Hemoglobin A1c (07/22/2022 9:18 AM CDT) Hgb A1C 6.3(H) <5.7 % of total Hgb [facility] Comment: For someone without known diabetes, [...] copy faxed has been acknowledged. ?Queued to: ??[id number] Blood 07/22/2022 9:18 AM CDT 07/22/2022 9:19 AM CDT Narrative [facility] - 07/29/2022 11:28 AM CDT FASTING:YES FASTING: YES Ce Larsen MD LAB BLOOD ORDERABLES Final [facility] [address] [place] [address] * TSH reflex to free T4 (07/22/2022 9:18 AM CDT) TSH 2.88 0.40 - 4.50 mIU/L [facility] Nesbitt Blood 07/22/2022 9:18 AM CDT 07/22/2022 9:19 AM CDT Narrative [facility] - 07/29/2022 11:28 AM CDT FASTING:YES FASTING: YES Ce Larsen MD LAB BLOOD ORDERABLES Final Re sult [facility] [address] [place] [address] * CBC with auto differential (07/22/2022 9:18 [...] ORDERABLES Final Re sult Performing Organization Address [facility] Co de Phone Number JULIO CÉSAR [facility] [address] [address] * (ABNORMAL) Lipid panel (07/22/2022 9:18 AM [...] LDL-C. Buzz SS et al. WILFRIDO. 2013;310(19): 9117-1015 (http://education.Trailburning/faq/NDH497) Chol/HDL ratio 2.5 <5.0 (calc) [facility] [...] ORDERABLES Final Re sult Performing Organization Address [facility] Co de Phone Number JULIO CÉSAR [facility] [address] [address] * Comprehensive metabolic panel (07/22/2022 9:18 AM CDT) Glucose 95 65 - 99 mg/dL [facility] Comment: ? Fasting reference interval BUN 20 7 - 25 mg/dL [facility] Creatinine 0.72 0.60 - 0.95 mg/dL [facility] eGFR 84 > OR = 60 mL/min/1. 73m2 [facility] Comment: The eGFR is based on the CKD-EPI 2020 equation. To calculate the new eGFR from a previous Creatinine or Cystatin C result, go to https://www.kidney.org/professionals/ kdoqi/gfr%5Fcalculator BUN/creat ratio NOT APPLICABLE 6 - 22 (calc) [facility] Sodium 138 135 - 146 mmol/L [facility] Potassium, pl 4.6 3.5 - 5.3 mmol/L [facility] Chloride 106 98 - 110 mmol/L [facility] CO2 24 20 - 32 mmol/L [facility] Calcium 9.9 8.6 - 10.4 mg/dL [facility] Protein, sr 7.1 6.1 - 8.1 g/dL [facility] Albumin 4.2 3.6 - 5.1 g/dL [facility] GLOBULIN 2.9 1.9 - 3.7 g/dL (calc) [facility] Alb/glob ratio 1.4 1.0 - 2.5 (calc) [facility] Bilirubin, total 0.7 0.2 - 1.2 mg/dL [facility] Alk phos 82 37 - 153 U/L [facility] AST 17 10 - 35 U/L [facility] ALT (SGPT) 16 6 - 29 U/L [facility] Blood 07/22/2022 9:18 AM CDT 07/22/2022 9:19 AM CDT Narrative [facility] - 07/29/2022 11:28 AM CDT FASTING:YES FASTING: YES Ce Larsen MD LAB BLOOD ORDERABLES Final Re sult [facility] [address] [place] [address] documented in this encounter Visit Diagnoses Diagnosis Type 2 diabetes mellitus without complication, without long-term current use of insulin ([facility] ([facility])- Primary Essential hypertension Unspecified essential hypertension Gastro-esophageal reflux disease without esophagitis Paroxysmal atrial fibrillation ([facility]) ([facility]) Atrial fibrillation Acquired hypothyroidism Unspecified hypothyroidism WAI [...] documented as of this encounter Care Teams Credit And Loan Collections Supervisor Relationship Specialty Start Date End Date Ce Larsen MD [address] [address] PCP - General Family Medicine 01/23/22 Chris Mendes MD Referring Physician Cardiology 12/23/21 Keli Orozco, correctional therapy teacherHtml Developer Cardiology 12/23/21 04/15/23 Alysa Newton, RN [address] [place] [address] Html Developer Cardiology 12/23/21 documented as of this encounter
--- OUTSIDE RECORDS SUMMARY | 2024-03-25 10:59 | XMS_ITS | Encounter Summary ---
Author Organization [facility] Medical [facility] Address [address] [facility] [address] [place] [address] Care Team Providers Care Central Supply Clerk Name Role Phone Chris Mendes MD Unavailable [phone] Keli Orozco RN Unavailable Unavailable Alysa Newton RN Unavailable [phone] Cuba Larsen MD Primary Care Provider [phone] Reason for Visit * Reason Onset Date Comments Care Drill Press Operator LOTTIE ED 05/16/2022 Vishnu Expre Care Encounter Details Date Type Department Care Team (Late st Contact Info) Description 05/16/2022 Telephone [facility] Medical [facility] Family Medicine [address] [facility] [address] [place] [address] Lucila Perkins, JOSE [address] [place] [address] [address] [facility] [address] [place] [address] Care Drill Press Operator LOTTIE ED ([facility]) Social History [...] on file 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 I spoke with patient regarding her recent visit at [facility] for bronchitis. Patient states she is still having quite a bit of rattling in the chest and nasal drainage. Patient would like to know what she can take OTC to help with the nasal congestion. Patient is taking prednisone. Patient also requires a follow up with PCP by to meet [facility]'s 7 day post ED follow up. Thank you, Lucila Perkins, [facility] Care Drill Press Operator [facility] [phone] UP OPERATOR documented in this encounter Plan of Treatment Not on file documented as of this encounter Visit Diagnoses Not on filedocumented in this encounter Care Teams Central Supply Clerk Relationship Specialty Start Date End Date Cuba Larsen MD [address] [address] PCP - General Family Medicine 01/23/22 Chris Mendes MD Referring Physician Cardiology 12/23/21 Keli Orozco, flask carrierAirport Refueling Handler Cardiology 12/23/21 04/15/23 Alysa Newton, RN [address] [address] Airport Refueling Handler Cardiology 12/23/21 documented as of this encounter
--- OUTSIDE RECORDS SUMMARY | 2024-03-25 10:59 | XMS_ITS | Encounter Summary ---
Author Organization [facility] Medical Group Address [address] [facility] [address] [place] [address] Care Team Providers Care Nightclub Manager Name Role Phone Chris Mendes MD Unavailable [phone] Keli Orozco RN Unavailable Unavailable Alysa Newton RN Unavailable [phone] Cuba Larsen MD Primary Care Provider [phone] Reason for Visit * Reason Onset Date Comments Authorization/Certification 10/24/2022 Encounter Details Date Type Department Care Team (Late st Contact Info) Description 10/24/2022 Telephone [facility] Medical [facility] [address] [facility] [address] [place] [address] Cuba Larsen MD [address] [place] [address] Authorization/Certific ation Social History Tobacco Use [...] file 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 Gender Identity Not on file Sexual Orientation Not on file documented as of this encounter Miscellaneous Notes * Telephone Encounter - Ivelisse Lafleur - 10/27/2022 7:43 AM CDT Order,recent imaging and insurance authorization information faxed to [facility] @ [phone] * Telephone Encounter - Jerome Rascon - 10/24/2022 1:36 PM CDT Authorization/Certification Type of Auth/Cert Needed: Pre- Certification for Test Type of caller:Facility Type of test needed (CPT code if available): 7416 Reason for test or diagnosis (diagnosis code if available):(M54.6) M47.814) Is insurance in chart accurate? yes Facility name: [facility] Facility NPI# (if available): [id number] Facility phone#: [phone] Facility fax#: [phone] Date test is scheduled: 10/30/22 Caller's Callback #: [phone] Additional Comments:!! they would like patients MRI orders faxed along with the authorization Does message need to be routed?Yes-Action Needed documented in this encounter Plan of Treatment Not on file documented as of this encounter Visit Diagnoses Not on filedocumented in this encounter Care Teams Nightclub Manager Relationship Specialty Start Date End Date Cuba Larsen MD [address] [facility] [address] [place] [address] PCP - General Family Medicine 01/23/22 Chris Mendes MD Referring Physician Cardiology 12/23/21 Keli Orozco, nickel operatorQuill Fixer Cardiology 12/23/21 04/15/23 Alysa Newton, RN [address] [address] Quill Fixer Cardiology 12/23/21 documented as of this encounter
--- OUTSIDE RECORDS SUMMARY | 2024-03-25 10:59 | XMS_ITS | Encounter Summary ---
Author Organization [facility] Healthcare Address [address] [place] [address] Care Team Providers Care Management Specialist Name Role Phone Chris Mendes MD Unavailable [phone] Keli Orozco RN Unavailable Unavailable Alysa Newton RN Unavailable [phone] Cuba Larsen MD Primary Care Provider [phone] Reason for Visit * Reason Onset Date Comments Referral Request 12/30/2022 Encounter Details Date Type Department Care Team (Late st Contact Info) Description 12/30/[address] 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 NO answer at Mannie's office. Left message on [employer]. * Telephone Encounter - Dolores Keys - 12/31/2022 7:12 AM CDT Order created. Referral will be worked in the order it was received. * Telephone Encounter - Cuba Larsen MD - 12/30/2022 1:53 PM CDT ok * Telephone Encounter - Leeann Johns - 12/30/2022 10:53 AM CDT Referral Provider Name (if patient is seeing a nurse practitioner or physician acute care assistant, list the CASING BUILDER/PA, but also their collaborating doctor): PAVITHRA Snow Specialty: Dermatology Address: [facility]: [address] [place] [address], Zip: [place] [address] Diagnosis Code/Symptom/Reason Patient is being seen: redness and skin peeling on nose Date of Appointment: 02.17.23 NPI#: [id number] Tax ID#: did not have Is insurance in chart up to date? Yes Caller???s Callback #: [phone] Additional Comments: [facility]ence referral. Does message need to be routed? Yes-Action Needed * Telephone Encounter - Leandra Jean - 12/30/2022 10:37 AM CDT Referral Provider Name (if patient is seeing a nurse practitioner or physician acute care assistant, list the CASING BUILDER/PA, but also their collaborating doctor): Specialty: Dermatology Address: [address] [place] [address], Zip: [place], [place] Fax: N/A Diagnosis Code/Symptom/Reason Patient is being seen: redness and skin peeling on nose Date of Appointment: 02.17.23 NPI#: N/A Tax ID#: N/[id number] Is insurance in chart up to date? yes Caller???s Callback #: [phone] Additional Comments: Patient isnt sure who she is seeing, she will contact their office and call back with additional information. Does message need to be routed? No documented in this encounter Plan of Treatment Not on file documented as of this encounter Visit Diagnoses Diagnosis Recent skin changes- Primary documented in this encounter Care Teams Management Specialist Relationship Specialty Start Date End Date Cuba Larsen MD [address] [address] PCP - General Family Medicine 01/23/22 Chris Mendes MD Referring Physician Cardiology 12/23/21 Keli Orozco, lumber loaderWell Testing Operator Cardiology 12/23/21 04/15/23 Alysa Newton, RN [address] [address] Well Testing Operator Cardiology 12/23/21 documented as of this encounter
--- OUTSIDE RECORDS SUMMARY | 2024-03-25 10:59 | XMS_ITS | Encounter Summary ---
Author Organization [facility] Group Address [address] [facility] [address] [place] [address] Care Team Providers Care Managing Jeweler Name Role Phone Chris Mendes MD Unavailable [phone] Keli Orozco RN Unavailable Unavailable Alysa Newton RN Unavailable [phone] Cuba Larsen MD Primary Care Provider [phone] Reason for Visit * Reason Comments Successful Phone Call Encounter Details Date Type Department Care Team ([facility] Contact Info) Description 05/16/2022 [facility] Outreach [facility] Accountable Care Organization [address] [place] [address] Lucila Perkins, [address] [facility] [address] [place] [address] Social History Tobacco Use Types Packs/Day Years [...] file 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 Status of Reason for ED Visit - Better Status Details: - Patient states her cough has improved but she is still having quite a bit of rattling in the chest. Patient states the [facility] diagnosed her with bronchitis. Patient states [...] for future needs. Thank you, Lucila Perkins [facility] Care E Commerce Merchant [facility] [phone] STRIAL TECHNOLOGY TEACHER documented in this encounter Plan of Treatment Not on file documented as of this encounter Visit Diagnoses Not on filedocumented in this encounter Historical Medications * This list may reflect changes made after this encounter. predniSONE (DELTASONE) 20 mg tablet Take 1 tablet (20 mg) by mouth 2 (two) times a day 02/03/2023 added in this encounter Care Teams Managing Jeweler Relationship Specialty Start Date End Date Cuba Larsen MD [address] [facility] [address] [place] [address] PCP - General Family Medicine 01/23/22 Chris Mendes MD Referring Physician Cardiology 12/23/21 Keli Orozco, cadmium platerV Belt Inspector Cardiology 12/23/21 04/15/23 Alysa Newton, RN [address] [facility] [address] [place] [address] V Belt Inspector Cardiology 12/23/21 documented as of this encounter
--- OUTSIDE RECORDS SUMMARY | 2024-03-25 10:59 | XMS_ITS | Encounter Summary ---
Author Organization [facility] Healthcare Address [address] [place] [address] Care Team Providers Care Sewer Maintenance Supervisor Name Role Phone Ryann Galdamez Primary Care Provider [phone] Reason for Referral * Diagnostic Imaging (Routine) - Closed Specialty Diagnoses / Procedures Referred By Indra muñoz Referred To Contact Diagnoses Closed fracture of distal end of left fibula Procedures XR Ankle Left 3 or More Views Kvng Nash DO [facility] [address] [place], [place] [address] Phone: tel: fax: [address] [address] Referral ID Status Reason Start Date Expiration Date Visits Re quested Visits Authorized [id number] Closed 10/17/2021 11/16/2022 1 1 Reason for Visit * Diagnostic Imaging (Routine) - Closed Specialty Diagnoses / Procedures Referred By Indra muñoz Referred To Contact Diagnoses Closed fracture of distal end of left fibula Procedures XR Ankle Left 3 or More Views Kvng Nash DO [address] 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 FINDINGS: There is a healing distal left [...] Frank Ferguson M.D. MF: MARTY Report ID: [id number] Reading Location: [place] [address] Kvng Nash DO IMG XR PROCEDURES Final Result documented in this encounter Visit Diagnoses Diagnosis Closed fracture of distal end of left fibula documented in this encounter Care Teams Sewer Maintenance Supervisor Relationship Specialty Start Date End Date Ryann Galdamez PA PCP - General Lead Ramp Service Man 04/02/21 01/22/22 documented as of this encounter
--- OUTSIDE RECORDS SUMMARY | 2024-03-25 10:59 | XMS_ITS | Encounter Summary ---
Author Organization [facility] Address [address] [facility] [address] [place] [address] Care Team Providers Care Senior Research Associate Name Role Phone Chirs Mendes MD Unavailable [phone] Keli Orozco RN Unavailable Unavailable Alysa Newton RN Unavailable [phone] Cuba Larsen MD Primary Care Provider [phone] Reason for Visit * Reason Comments follow-up [facility] Encounter Details Date Type Department Care Team (Late st Contact Info) Description 05/19/2022 3:15 PM BANANA GRADER Office Visit [facility] Family Medicine [address] [facility] [address] [place] [address] Cuba Larsen MD [address] [place] [address] Acute cough (Primary Dx) Social History Tobacco [...] on file Legal Sex Female 4:20 AM BANANA GRADER Gender Identity Not on file Sexual Orientation Not on file documented as of this encounter Last Filed Vital Signs Vital Sign Reading Time Taken Comments Blood Pressure 120/82 05/19/2022 3:21 PM BANANA GRADER Pulse 49 05/19/2022 3:21 PM BANANA GRADER Temperature 36.1 ??C (97 ??F) 05/19/2022 3:21 PM BANANA GRADER Respiratory Rate 18 05/19/2022 3:21 PM BANANA GRADER Oxygen Saturation 93% 05/19/2022 3:21 PM BANANA GRADER Inhaled Oxygen Concentration - - Weight 78.8 kg (173 lb 12.8 oz) 05/19/2022 3:21 PM BANANA GRADER Height 154.9 cm (5' 1 ) 05/19/2022 3:21 PM BANANA GRADER Body Mass Index 32.84 05/19/2022 3:21 PM BANANA GRADER documented in this encounter Ordered Prescriptions Prescription [...] Chief Complaint Patient presents with follow-up [facility] care for bronchitis 7 days of [...] for cough Dispense: 20 capsule Refill: 0 NA GRADER documented in this encounter Plan of Treatment Not on file documented as of this encounter Visit Diagnoses Diagnosis Acute cough- Primary documented in this encounter Discontinued Medications Medication Sig Discontinue Reason Start Date End Da te FLUoxetine (PROzac) 40 mg capsule Take 1 capsule (40 mg total) by mouth daily 08/26/2021 05/19/2022 documented as of this encounter Care Teams Senior Research Associate Relationship Specialty Start Date End Date Cuba Larsen MD [address] [facility] [address] [place] [address] PCP - General Family Medicine 01/23/22 Chris Mendes MD Referring Physician Cardiology 12/23/21 Keli Orozco, corporate ethics officerCalibration Laboratory Technician Cardiology 12/23/21 04/15/23 Alysa Newton, RN [address] [address] Calibration Laboratory Technician Cardiology 12/23/21 documented as of this encounter
--- OUTSIDE RECORDS SUMMARY | 2024-03-25 10:59 | XMS_ITS | Encounter Summary ---
Author Organization [facility] Medical Group Address [address] [facility] [address] [place] [address] Care Team Providers Care Matcher Name Role Phone Chris Mendes MD Unavailable [phone] Keli Orozco RN Unavailable Unavailable Alysa Newton RN Unavailable [phone] Cuba Larsen MD Primary Care Provider [phone] Reason for Visit * Reason Onset Date Comments ACO Quality Outreach 07/24/2022 ESSENCE TRAVIS ORITY INITIATIVE Encounter Details Date Type Department Care Team (Late st Contact Info) Description 07/24/2022 Telephone [facility] Medical [facility] Family Medicine [address] [facility] [address] [place] [address] Rosa M Pearce MA [address] [place] [address] [address] [place] [address] ACO Quality Outreach (ESSENCE PRIORITY INITIATIVE) Social [...] on file Legal Sex Female 4:20 AM PROJECT CONTROLS SPECIALIST Gender Identity Not on file Sexual [...] 08/13/2022. Rosa M Pearce CMA Patient Quality Surgical Specialist [facility] [phone] documented in this encounter Plan of Treatment Not on file documented as of this encounter Visit Diagnoses Not on filedocumented in this encounter Care Teams Matcher Relationship Specialty Start Date End Date Cuba Larsen MD [address] [facility] [address] [place] [address] PCP - General Family Medicine 01/23/22 Chris Mendes MD Referring Physician Cardiology 12/23/21 Keli Orozco, yacht masterSieve Repairer Cardiology 12/23/21 04/15/23 Alysa Newton, RN [address] [facility] [address] [place] [address] Sieve Repairer Cardiology 12/23/21 documented as of this encounter
--- OUTSIDE RECORDS SUMMARY | 2024-03-25 10:59 | XMS_ITS | Encounter Summary ---
Author Organization [facility] Medical Group Address [address] [address] Care Team Providers Care Topographical Surveyor Name Role Phone Chris Mendes MD Unavailable [phone] Keli Orozco RN Unavailable Unavailable Alysa Newton RN Unavailable [phone] Cuba Larsen MD Primary Care Provider [phone] Encounter Details Date Type Department Care Team (Latest Contact Info) Description 08/13/2022 1:30 PM CDT Ancillary Procedure [facility] Medical [facility] Imaging at [address] [address] Cervical neck pain with evidence [...] on file Legal Sex Female 4:20 AM PALLETIZER Gender Identity Not on file Sexual Orientation [...] D: ??08/14/2022 6:46 AM T: Report ID: [id number] Reading Location: ??[id number] Procedure Note Frank Ferguson MD - 08/14/2022 [...] by Frank Ferguson M.D. T: Report ID: [id number] Reading Location: [place] [address] Cuba Larsen MD IMG XR PROCEDURES Final Resul t documented in this encounter Visit Diagnoses Diagnosis Cervical neck pain with evidence of disc disease Other and unspecified disc disorder of cervical region documented in this encounter Care Teams Topographical Surveyor Relationship Specialty Start Date End Date Cuba Larsen MD [address] [address] PCP - General Family Medicine 01/23/22 Chris Mendes MD Referring Physician Cardiology 12/23/21 Keli Orozco, bindery operatorElectrical Plumbing Supervisor Cardiology 12/23/21 04/15/23 Alysa Newton, RN [address] [address] Electrical Plumbing Supervisor Cardiology 12/23/21 documented as of this encounter
--- OUTSIDE RECORDS SUMMARY | 2024-03-25 10:59 | XMS_ITS | Encounter Summary ---
Author Organization [facility] Medical Group Address [address] [facility] [address] [place] [address] Care Team Providers Care Pick And Shovel Man Name Role Phone Chris Mendes MD Unavailable [phone] Keli Orozco RN Unavailable Unavailable Alysa Newton RN Unavailable [phone] Ce Larsen MD Primary Care Provider [phone] Reason for Visit * Reason Comments Essence Enhanced Encounter Essence exam Encounter Details Date Type Department Care Team (Late st Contact Info) Description 08/13/2022 11:45 AM CDT Office Visit [facility] Medical [facility] Primary Care at [address] [address] Ce Larsen MD [address] [address] Other general medical examination for administrative purposes [...] file Legal Sex Female 4:20 AM SENIOR DESIGN ENGINEERING SPECIALIST Gender Identity Not on file Sexual [...] were not included. 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 ([facility]) Presence of left artificial knee [...] side as late effect of stroke (CMS/HCC) ([facility]) Essential tremor Past Medical History: Diagnosis Date Adrenal nodule (HCC) Anxiety Aortic stenosis, moderate Atrial fibrillation (CMS/HCC) (HCC) Cardiomyopathy (HCC) Diabetes mellitus (HCC) Dyslipidemia GERD (gastroesophageal reflux disease) Heart murmur HFrEF (heart failure with reduced ejection fraction) (CMS/HCC) ([facility]) Hyperlipidemia Hypertension Hypothyroidism Insomnia Mitral regurgitation NSTEMI (non-ST elevated myocardial infarction) (CMS/HCC) ([facility]) Obesity AYAD on CPAP Patellar sleeve fracture of left knee PONV (postoperative nausea and vomiting) Pulmonary embolism ([facility]) Sleep apnea Stroke ([facility]) Zenker's diverticulum Past Surgical History: [...] for allergies, Disp: 90 tablet, Rfl: 1 dwjjxnqt-fnm-cjrp-FA-lutein 8 mg iron-400 mcg-300 mcg tablet, Take [...] Referring Physician (Cardiology) Keli Orozco, RN as Pipe Layer (Cardiology) Alysa Newton, ARMANI as Pipe Layer (Cardiology) Primary Pharmacy/DME suppliers: [id number] [place] [id number] [address] Detection of Cognitive Impairment: The patient does [...] Improve Diet Advanced Directive Durable Power of Bowling Alley Mechanic: Discussed Today Living Will: Discussed Today Assessment and Plan: Diagnoses and all orders for this visit: Other general medical examination for administrative purposes (Primary) - completed Type 2 diabetes mellitus without complication, without long-term current use of insulin ([facility]) ([facility]) - A1c is 6.3. She does see the eye doctor. No peripheral neuropathy. We are going to stop the glipizide continue metformin add Farxiga at 5 mg daily - chronic problem with medicine change Paroxysmal atrial fibrillation ([facility]) ([facility]) - on Eliquis. Sees Cardiology Acquired hypothyroidism - TSH normal may continue present management Essential hypertension - continue meds blood pressure controlled Gastro-esophageal reflux disease without esophagitis - currently stable Chronic combined systolic (congestive) and diastolic (congestive) heart failure ([facility]) - ejection fraction 52%. 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 A copy of the prevention plan was [...] patient through summary of today's office visit. eC Larsen MD Orders Placed This Encounter Dexa Axial Skeleton Bone Density 1 or 2 Site Standing Status: Future Standing Expiration Date: 08/06/2023 Order Specific Question: Clinical question to be answered: Answer: Osteoporosis screening Order Specific Question: Where should this order be performed? Answer: [facility] [[id number]] Albumin Creatinine [...] WITH AUTO DIFFERENTIAL Routine 02/23/2023 11:01 AM SENIOR DESIGN ENGINEERING SPECIALIST Type 2 diabetes mellitus without complication, without long-term current use of insulin ([facility]) ([facility]) ALBUMIN CREATININE RATIO, URINE Routine 02/23/2023 11:01 AM SENIOR DESIGN ENGINEERING SPECIALIST Type 2 diabetes mellitus without complication, without long-term current use of insulin ([facility]) ([facility]) HEMOGLOBIN A1C Routine 02/23/2023 11:01 AM SENIOR DESIGN ENGINEERING SPECIALIST Type 2 diabetes mellitus without complication, without long-term current use of insulin ([facility]) ([facility]) LIPID PANEL Routine 02/23/2023 11:01 AM SENIOR DESIGN ENGINEERING SPECIALIST Type 2 diabetes mellitus without complication, without long-term current use of insulin ([facility]) ([facility]) COMPREHENSIVE METABOLIC PANEL Routine 02/23/2023 11:01 AM SENIOR DESIGN ENGINEERING SPECIALIST Type 2 diabetes mellitus without complication, without long-term current use of insulin ([facility]) (HCC) documented in this encounter Results * (ABNORMAL) Hemoglobin A1c (02/23/2023 11:01 AM SENIOR DESIGN ENGINEERING SPECIALIST) Hgb A1C 5.9(H) <5.7 % of total [...] for children. Blood 02/23/2023 11:0 1 AM SENIOR DESIGN ENGINEERING SPECIALIST 02/23/2023 11:01 AM SENIOR DESIGN ENGINEERING SPECIALIST Ce Larsen MD LAB BLOOD ORDERABLES Final Re sult [facility] [address] [place] [address] * (ABNORMAL) Lipid panel (02/23/2023 11:01 AM SENIOR DESIGN ENGINEERING SPECIALIST) Cholesterol 108 <200 mg/dL [facility] [...] LDL-C. Buzz SS et al. WILFRIDO. 2013;310(19): 7712-9536 (http://education.PayStand/faq/TSO461) Chol/HDL ratio 3.6 <5.0 (calc) [facility] Non-HDL, (LDL+VLDL) 78 <130 mg/dL (calc) [facility] Comment: For patients with diabetes plus 1 major ASCVD risk factor, treating to a non-HDL-C goal of <100 mg/dL (LDL-C of <70 mg/dL) is considered a therapeutic option. Blood 02/23/2023 11:0 1 AM SENIOR DESIGN ENGINEERING SPECIALIST 02/23/2023 11:01 AM SENIOR DESIGN ENGINEERING SPECIALIST us Ce Larsen MD LAB BLOOD ORDERABLES Final Re sult [facility] [address] [place] [address] * (ABNORMAL) Comprehensive metabolic panel (02/23/2023 11:01 AM SENIOR DESIGN ENGINEERING SPECIALIST) Pathologist [facility] Glucose 121(H) 65 - 99 mg/dL [facility] Blood 02/23/2023 11:0 1 AM SENIOR DESIGN ENGINEERING SPECIALIST 02/23/2023 11:01 AM SENIOR DESIGN ENGINEERING SPECIALIST us Ce Larsen MD LAB BLOOD ORDERABLES Final Re sult [facility] [address] [place] [address] * CBC with auto differential (02/23/2023 11:01 AM SENIOR DESIGN ENGINEERING SPECIALIST) WBC 6.0 3.8 - 10.8 Thousand/u L [...] [facility] Blood 02/23/2023 11:0 1 AM SENIOR DESIGN ENGINEERING SPECIALIST 02/23/2023 11:01 AM SENIOR DESIGN ENGINEERING SPECIALIST Ce Larsen MD LAB BLOOD ORDERABLES [facility] [address] [place] [address] * Albumin Creatinine Ratio, Urine (02/23/2023 11:01 AM SENIOR DESIGN ENGINEERING SPECIALIST) Creatinine, ur 94 20 - 275 mg/dL [...] diagnostic category. Urine 02/23/2023 11:0 1 AM SENIOR DESIGN ENGINEERING SPECIALIST 02/23/2023 11:01 AM SENIOR DESIGN ENGINEERING SPECIALIST us Ce Larsen MD LAB URINE ORDERABLES Final Re sult [facility] [address] [address] [place] [address] * XR Spine Cervical 2 or 3 [...] D: ??08/14/2022 6:46 AM T: Report ID: [id number] Reading Location: ??[id number] Procedure Note Frank Ferguson MD - 08/14/2022 [...] by Frank Ferguson M.D. T: Report ID: [id number] Reading Location: [place] [address] Ce Larsen MD IMG XR PROCEDURES Final [...] region documented in this encounter Care Teams Pick And Shovel Man Relationship Specialty Start Date End Date Ce Larsen MD [address] [address] PCP - General Family Medicine 01/23/22 Chris Mendes MD Referring Physician Cardiology 12/23/21 Keli Orozco, wigs salespersonPipe Layer Cardiology 12/23/21 04/15/23 Alysa Newton, RN [address] [address] Pipe Layer Cardiology 12/23/21 documented as of this encounter
--- OUTSIDE RECORDS SUMMARY | 2024-03-25 10:59 | XMS_ITS | Encounter Summary ---
Author Organization [facility] Healthcare Address [address] [place] [address] Care Team Providers Care Supervisory Investigative Specialist Name Role Phone Chris Mendes MD Unavailable [phone] Keli Orozco RN Unavailable Unavailable Alysa Newton RN Unavailable [phone] Cuba Larsen MD Primary Care Provider [phone] Encounter Details Date Type Department Care Team (Late st Contact Info) Description 02/12/2023 Telephone [facility] Medical Group Family Medicine [address] [place] [address] Cuba Larsen MD [address] [place] [address] Social History Tobacco Use Types Packs/Day [...] on file Legal Sex Female 4:20 AM BLENDING TANK HELPER Gender Identity Not on file Sexual Orientation Not on file documented as of this encounter Miscellaneous Notes * Telephone Encounter - Azucena Velasquez - 02/13/2023 9:21 AM CST Appt scheduled for 02/26/2023 DING TANK HELPER * Telephone Encounter - Azucena Velasquez - 02/12/2023 4:20 PM CST Called [facility] to have Prema Pearce call the office to reschedule her missed EE appt which needs migdalia completed before the end of the year DING TANK HELPER documented in this encounter Plan of Treatment Not on file documented as of this encounter Visit Diagnoses Not on filedocumented in this encounter Care Teams Supervisory Investigative Specialist Relationship Specialty Start Date End Date Cuba Larsen MD [address] [address] PCP - General Family Medicine 01/23/22 Chris Mendes MD Referring Physician Cardiology 12/23/21 Keli Orozco, quality improvement consultantMoney Manager Cardiology 12/23/21 04/15/23 Alysa Newton, RN [address] [address] Money Manager Cardiology 12/23/21 documented as of this encounter
--- OUTSIDE RECORDS SUMMARY | 2024-03-25 10:59 | XMS_ITS | Encounter Summary ---
Author Organization [facility] Medical Group Address [address] [facility] [place] [address] Care Team Providers Care Drapery Maker Name Role Phone Chris Mendes MD Unavailable [phone] Keli Orozco RN Unavailable Unavailable Alysa Newton RN Unavailable [phone] Cuba Larsen MD Primary Care Provider [phone] Reason for Visit * Reason Onset Date Comments Medication Request 09/19/2022 Encounter Details Date Type Department Care Team (Late st Contact Info) Description 09/19/2022 Telephone [facility] Medical [facility] Family Medicine [address] [place] [address] Cuba Larsen MD [address] [place] [address] Medication Request Social History Tobacco Use Types [...] on file Legal Sex Female 4:20 AM LITHOGRAPHIC PLATEMAKER Gender Identity Not on file Sexual Orientation [...] out of samples Caller???s Call back #: [phone] Does message need to be routed? Yes-Action [...] sent to: on file Caller???s Callback #: [phone] Additional Comments: Caller states that the samples [...] on filedocumented in this encounter Care Teams Drapery Maker Relationship Specialty Start Date End Date Cuba Larsen MD [address] [address] PCP - General Family Medicine 01/23/22 Chris Mendes MD Referring Physician Cardiology 12/23/21 Keli Orozco, case packer and sealerCone Treater Cardiology 12/23/21 04/15/23 Alysa Newton, RN [address] [address] Cone Treater Cardiology 12/23/21 documented as of this encounter
--- OUTSIDE RECORDS SUMMARY | 2024-03-25 10:59 | XMS_ITS | Encounter Summary ---
Author Organization [facility] Medical Group Address [address] [place] [address] Care Team Providers Care Heavy Line Technician Name Role Phone Ryann Galdamez Primary Care Provider [phone] Reason for Visit * Reason Onset Date Comments Test Results 11/06/2021 Encounter Details Date Type Department Care Team (Late st Contact Info) Description 11/06/2021 Telephone [facility] Medical Group Family Medicine [address] [place] [address] Ryann Galdamez PA [facility] [place] [address] Test Results Social History Tobacco [...] file Legal Sex Female 4:20 AM PUBLIC SERVICE 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 Labs Tab Caller's Callback #: [phone] Additional Questions/Comments: patient understood, no questions. Does message need to be routed?No documented in this encounter Plan of Treatment Not on file documented as of this encounter Visit Diagnoses Not on filedocumented in this encounter Care Teams Heavy Line Technician Relationship Specialty Start Date End Date Ryann Galdamez PA PCP - General Anesthesiologist/Physician 04/02/21 01/22/22 documented as of this encounter
--- OUTSIDE RECORDS SUMMARY | 2024-03-25 10:59 | XMS_ITS | Encounter Summary ---
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
--- OUTSIDE RECORDS SUMMARY | 2024-03-25 10:59 | XMS_ITS | Encounter Summary ---
Author Organization [facility] Healthcare Address [address] [place] [address] Care Team Providers Care Tour Sales Representative Name Role Phone Chris Sanchez MD Unavailable [phone] Keli Orozco RN Unavailable Unavailable Alysa Newton RN Unavailable [phone] Cuba Larsen MD Primary Care Provider [phone] Reason for Referral * Cardiology (Routine) - Closed Specialty Diagnoses / Procedures Referred By Indra muñoz Referred To Contact Diagnoses Acute on chronic systolic CHF (congestive heart failure) (CMS/HCC) (HCC) Procedures Transthoracic Echo (TTE) Complete W Doppler/CF Chris Sanchez MD Phone: tel: fax: [address] [address] Referral ID Status Reason Start Date Expiration Date Visits Re quested Visits Authorized [id number] Closed 01/13/2022 02/12/2023 1 1 Reason for Visit * Cardiology (Routine) - Closed Specialty Diagnoses / Procedures Referred By Contac t Referred To Contact Diagnoses Acute on chronic systolic CHF (congestive heart failure) (CMS/HCC) (HCC) Procedures Transthoracic Echo (TTE) Complete W Doppler/CF Chris Sanchez MD Phone: tel: fax: [address] [address] Referral ID Status Reason Start Date Expiration Date Visits Re quested Visits Authorized [id number] Closed 01/13/2022 02/12/2023 1 1 Encounter Details Date Type Department Care Team (Latest Contact Info) Description 07/28/2022 12:29 PM CDT - 07/28/2022 11:59 PM CDT Hospital Encounter [facility] Cardiac Diagnostic Lab [facility] 8th [place] [address] Acute on chronic systolic CHF [...] on file Legal Sex Female 4:20 AM THORACIC MEDICINE SPECIALIST Gender Identity Not on file Sexual [...] DAY WITH MEALS 180 tablet 06/23/2022 3 zuamsupf-vlw-ghog -FA-lutein 8 mg iron-400 mcg-300 mcg tablet [...] #: 0 Date of : 1940 (F) Fish Seiner: Lindsay Sancehz RDCS Referring Physician: CHRIS SANCHEZ MD Contrast Agent: 0.8 ml Optison Administered, (2.2 ml wasted). Contrast Administered by: Maddison Joshi RN Supervised/Interpreted by: Frank Horn MD Diagnosis: Location: [facility] Reason for test: Acute chronic systolic [...] 2=Hypo 3=Akinetic 4=Dyskin./Aneurysm 0=Not visualized) Parasternal Long [place]:MAS=1 BAS=1 MIL=1 NIGHAT=1 Parasternal Short [place]:MAS=1 MIS=1 [place]=1 MIL=1 MAL=1 MA=1 Apical 4 [...] Valve: mild TV regurgitation Pulmonic Valve: Mild TX AV Regurgitation: No AR seen AV Stenosis: [...] , no MS, mild TV regurgitation, Mild TX. Diastolic function: Grade II, increased mean LA [...] MVAC with mild MR. ??Mild TR and TX. ??Est. PASP 40 mm Hg, assuming an RA pressure of 10 mm Hg. ??No pericardial effusion. ??Compared with 08/31/20, the est. AV area has decreased from 1.2 to 1.0 cm2 and the LVEF has decreased from 66% to 52%. Confirmed on ??07/28/2022 - 15:31:34 by Frank Horn MD By signing this report, the attending glue drier operator certifies that he or she has personally supervised and interpreted the echocardiogram and has reviewed and or edited and agrees with the written comments contained within the report. Procedure Note Frank Horn MD - 07/28/2022 Patient name: Prema Pearce Date of test: 07/28/2022 Type of test: TTE w/Doppler [facility] #: 0 Date of : 1940 (F) Fish Seiner: Lindsay Sanchez RDCS Referring Physician: CHRIS SANCHEZ MD Contrast Agent: 0.8 ml Optison Administered, (2.2 ml wasted). Contrast Administered by: Maddison Joshi RN Supervised/Interpreted by: Frank Horn MD Diagnosis: Location: [facility] Reason for test: Acute chronic systolic [...] 2=Hypo 3=Akinetic 4=Dyskin./Aneurysm 0=Not visualized) Parasternal Long [place]:MAS=1 BAS=1 MIL=1 NIGHAT=1 Parasternal Short [place]:MAS=1 MIS=1 WI=1 MIL=1 MAL=1 MA=1 Apical 4 [...] Valve: mild TV regurgitation Pulmonic Valve: Mild TX AV Regurgitation: No AR seen AV Stenosis: [...] , no MS, mild TV regurgitation, Mild TX. Diastolic function: Grade II, increased mean LA [...] MVAC with mild MR. Mild TR and TX. Est. PASP 40 mm Hg, assuming an RA pressure of 10 mm Hg. No pericardial effusion. Compared with 08/31/20, the est. AV area has decreased from 1.2 to 1.0 cm2 and the LVEF has decreased from 66% to 52%. Confirmed on 07/28/2022 - 15:31:34 by Frank Horn MD By signing this report, the attending glue drier operator certifies that he or she has personally supervised and interpreted the echocardiogram and has reviewed and or edited and agrees with the written comments contained within the report. us Chris Sanchez MD CV ECHO PROCEDURES Final Re sult documented in this encounter Visit Diagnoses Diagnosis Acute on chronic systolic CHF (congestive heart failure) (CMS/HCC) ([facility]) documented in this encounter Administered [...] mL documented in this encounter Care Teams Tour Sales Representative Relationship Specialty Start Date End Date Cuba Larsen MD [address] [place] [address] PCP - General Family Medicine 01/23/22 Chris Sanchez MD Referring Physician Cardiology 12/23/21 Keli Orozco, commodities managerBisque Cleaner Cardiology 12/23/21 04/15/23 Alysa Newton, RN [address] [place] [address] Bisque Cleaner Cardiology 12/23/21 documented as of this encounter
--- OUTSIDE RECORDS SUMMARY | 2024-03-25 10:59 | XMS_ITS | Encounter Summary ---
Author Organization [facility] Healthcare Address [address] [place] [address] Care Team Providers Care Superintendent Radio Communications Name Role Phone Chris Mendes MD Unavailable [phone] Keli Orozco RN Unavailable Unavailable Alysa Newton RN Unavailable [phone] Cuba Larsen MD Primary Care Provider [phone] Reason for Visit * Reason Onset Date Comments Chart Review 02/11/2023 [facility] Quality lucero t review, patient not contacted. Encounter Details Date Type Department Care Team ([facility] st Contact Info) Description 02/11/2023 Telephone [facility] Accountable Care Organization [address] [place] [address] Rupinder Vela [address] [place] [address] [address] [place] [address] Chart Review ([facility] Quality chart review, patient not contacted. 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 Gender Identity Not on file Sexual Orientation Not on file documented as of this encounter Plan of Treatment Not on file documented as of this encounter Visit Diagnoses Not on filedocumented in this encounter Care Teams Superintendent Radio Communications Relationship Specialty Start Date End Date Cuba Larsen MD [address] [facility] [address] [place] [address] PCP - General Family Medicine 01/23/22 Chris Mendes MD Referring Physician Cardiology 12/23/21 Keli Orozco, acute care assistantSpecial Education Preschool Teacher Cardiology 12/23/21 04/15/23 Alysa Newton, RN [address] [facility] [address] [place] [address] Special Education Preschool Teacher Cardiology 12/23/21 documented as of this encounter
--- OUTSIDE RECORDS SUMMARY | 2024-03-25 10:59 | XMS_ITS | Encounter Summary ---
Author Organization [facility] Healthcare Address [address] [place] [address] Care Team Providers Care Membership Sales Advisor Name Role Phone Ryann Galdamez Primary Care Provider [phone] Encounter Details Date Type Department Care Team (Late st Contact Info) Description 09/11/2021 [facility] Post Discharge Follow up phone call 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
--- OUTSIDE RECORDS SUMMARY | 2024-03-25 10:59 | XMS_ITS | Encounter Summary ---
Author Organization [facility] Healthcare Address [address] [place] [address] Care Team Providers Care Executive Vp Name Role Phone Chris Mendes MD Unavailable [phone] Keli Orozco RN Unavailable Unavailable Alysa Newton RN Unavailable [phone] Cuba Larsen MD Primary Care Provider [phone] Encounter Details Date Type Department Care Team (Late st Contact Info) Description 02/13/[address] 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 Gender Identity Not on file Sexual Orientation Not on file documented as of this encounter Miscellaneous Notes * Telephone Encounter - Azucena Velasquez - 02/19/2023 12:26 PM CST Error COM FIELD TECHNICIAN documented in this encounter Plan of Treatment Not on file documented as of this encounter Visit Diagnoses Not on filedocumented in this encounter Care Teams Executive Vp Relationship Specialty Start Date End Date Cuba Larsen MD [address] [address] PCP - General Family Medicine 01/23/22 Chris Mendes MD Referring Physician Cardiology 12/23/21 Keli Orozco, manager sqlManager Garage Cardiology 12/23/21 04/15/23 Alysa Newton, RN [address] [address] Manager Garage Cardiology 12/23/21 documented as of this encounter
--- OUTSIDE RECORDS SUMMARY | 2024-03-25 10:59 | XMS_ITS | Encounter Summary ---
Author Organization [facility] Address [address] [facility] [address] [place] [address] Care Team Providers Care Air And Missile Defense Crewmember Name Role Phone Chris Mendes MD Unavailable [phone] Keli Orozco RN Unavailable Unavailable Alysa Newton RN Unavailable [phone] Cuba Larsen MD Primary Care Provider [phone] Reason for Visit * Reason Onset Date Comments Referral Request 12/04/2022 Encounter Details Date Type Department Care Team (Late st Contact Info) Description 12/04/2022 Telephone [facility] Family Medicine [address] [facility] [address] [place] [address] Cuba Larsen MD [address] [place] [address] Referral Request Social History Tobacco Use Types [...] on file 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 yes Caller???s Callback #: [phone] Additional Comments: Patient's previous doctor is no [...] vision documented in this encounter Care Teams Air And Missile Defense Crewmember Relationship Specialty Start Date End Date Cuba Larsen MD [address] [facility] [address] [place] [address] PCP - General Family Medicine 01/23/22 Chris Mendes MD Referring Physician Cardiology 12/23/21 Keli Orozco, quality control inspector headingChild Care Counselor Cardiology 12/23/21 04/15/23 Alysa Newton, RN [address] [facility] [address] [place] [address] Child Care Counselor Cardiology 12/23/21 documented as of this encounter
--- OUTSIDE RECORDS SUMMARY | 2024-03-25 10:59 | XMS_ITS | Encounter Summary ---
Author Organization [facility] Healthcare Address [address] [place] [address] Care Team Providers Care Digitizer Name Role Phone Chris Sanchez MD Unavailable [phone] Keli Orozco RN Unavailable Unavailable Alysa Newton RN Unavailable [phone] Cuba Larsen MD Primary Care Provider [phone] Reason for Referral * Consultation (Routine) - Closed Specialty Diagnoses / Procedures Referred By Indra muñoz Referred To Contact Cardiology Diagnoses Mitral valve prolapse Cuba Larsen MD [address] [address] Phone: tel: fax: Chris Sanchez MD [address] [address] Phone: tel: fax: Referral ID Status Reason Start Date Expiration Date V isits Requested Visits Authorized [id number] Closed Specialty Services Required 01/23/2023 01/25/2024 12 12 Question Answer Please select the performing region: [facility] (All Locations) [167] Is this referral for the Valve Clinic? 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 Insurance auth obtained and scanned into referral. MAKER documented in this encounter Plan of Treatment Scheduled Referrals Name Type Priority Associated Diagnoses Order Schedule Ambulatory referral to Cardiology Outpatient Referral Routine Mitral valve prolapse Expected: 01/23/2023 (Approximate), Expires: 01/24/2024 documented as of this encounter Visit Diagnoses Diagnosis Mitral valve prolapse- Primary Mitral valve disorders documented in this encounter Care Teams Digitizer Relationship Specialty Start Date End Date Cuba Larsen MD [address] [facility] [address] [place] [address] PCP - General Family Medicine 01/23/22 Chris Sanchez MD Referring Physician Cardiology 12/23/21 Keli Orozco, calciner operator helperPick And Shovel Man Cardiology 12/23/21 04/15/23 Alysa Newton, RN [address] [address] Pick And Shovel Man Cardiology 12/23/21 documented as of this encounter
--- OUTSIDE RECORDS SUMMARY | 2024-03-25 10:59 | XMS_ITS | Encounter Summary ---
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
--- OUTSIDE RECORDS SUMMARY | 2024-03-25 10:59 | XMS_ITS | Encounter Summary ---
Author Organization [facility] Medical Group Address [address] [facility] [address] [place] [address] Care Team Providers Care Quality Assurance Specialist Name Role Phone Chris Mendes MD Unavailable [phone] Keli Orozco RN Unavailable Unavailable Alysa Newton RN Unavailable [phone] Cuba Larsen MD Primary Care Provider [phone] Reason for Visit * Reason Onset Date Comments Appointment Request 01/23/2022 Encounter Details Date Type Department Care Team (Late st Contact Info) Description 01/23/[address] [address] Ryann Galdamez PA [address] [place] [address] [id number] Appointment Request Social History Tobacco Use Types [...] file 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 N/A Caller's Callback #: [phone] Additional Comments: Patient inadvertently missed her appointment on 01/15/22 as a new patient and is trying to get in earlier than what my availability showed in [facility] Does message need to be routed? Yes-Action Needed NCIAL MANAGEMENT CONSULTANT documented in this encounter Plan of Treatment Not on file documented as of this encounter Visit Diagnoses Not on filedocumented in this encounter Care Teams Quality Assurance Specialist Relationship Specialty Start Date End Date Cbua Larsen MD [address] [facility] [address] [place] [address] PCP - General Family Medicine 01/23/22 Chris Mendes MD Referring Physician Cardiology 12/23/21 Keli Orozco, field service repStoreroom Attendant Cardiology 12/23/21 04/15/23 Alysa Newton, RN [address] [facility] [address] [place] [address] Storeroom Attendant Cardiology 12/23/21 documented as of this encounter
--- OUTSIDE RECORDS SUMMARY | 2024-03-25 10:59 | XMS_ITS | Encounter Summary ---
Author Organization [facility] Medical Group Address [address] [facility] [address] [place] [address] Care Team Providers Care Suspender Cutter Name Role Phone Chris Mendes MD Unavailable [phone] Keli Orozco RN Unavailable Unavailable Alysa Newton RN Unavailable [phone] Cuba Larsen MD Primary Care Provider [phone] Reason for Visit * Reason Onset Date Comments Medical Question/Miscellaneous 03/28/2022 Encounter Details Date Type Department Care Team (Late st Contact Info) Description 03/28/2022 Telephone [facility] Family Medicine [address] [facility] [address] [place] [address] Cuba Larsen MD [address] [place] [address] Medical Question/Miscellaneous Social History Tobacco Use Types [...] file 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 RVISOR CUSTOMER COMPLAINT SERVICE * Telephone Encounter - Selina Bojorquez - 03/28/2022 10:50 AM CST Medical Question/Miscellaneous Caller???s Concern: Spoke with Danette she relayed that she is going to the theater in [facility] but they are requiring her to show [...] wanting follow up Caller???s Call back #: [phone] Does message need to be routed?Yes-Action Needed RVISOR CUSTOMER COMPLAINT SERVICE documented in this encounter Plan of Treatment Not on file documented as of this encounter Visit Diagnoses Not on filedocumented in this encounter Care Teams Suspender Cutter Relationship Specialty Start Date End Date Cuba Larsen MD [address] [address] PCP - General Family Medicine 01/23/22 Chris Mendes MD Referring Physician Cardiology 12/23/21 Keli Orozco, ultrasound applications specialistCar Hostler Cardiology 12/23/21 04/15/23 Alysa Newton, RN [address] [address] Car Hostler Cardiology 12/23/21 documented as of this encounter
--- OUTSIDE RECORDS SUMMARY | 2024-03-25 10:59 | XMS_ITS | Encounter Summary ---
Author Organization [facility] Healthcare Address [address] [place] [address] Care Team Providers Care Systems Support Officer Name Role Phone Chris Mendes MD Unavailable [phone] Keli Orozco RN Unavailable Unavailable Alysa Newton RN Unavailable [phone] Cuba Larsen MD Primary Care Provider [phone] Encounter Details Date Type Department Care Team (Late st Contact Info) Description 07/23/2022 Telephone [facility] Transplant Heart [address] [address] [address] [phone] [place] [address] Maryann Faye Social History Tobacco Use Types [...] 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 Reorder 07/23/2022 07/23/2022 documented as of this encounter Care Teams Systems Support Officer Relationship Specialty Start Date End Date Cuba Larsen MD [address] [address] PCP - General Family Medicine 01/23/22 Chirs Mendes MD Referring Physician Cardiology 12/23/21 Keli Orozco, oyster culturistWall Taper Helper Cardiology 12/23/21 04/15/23 Alysa Newton, ARMANI [address] [address] Wall Taper Helper Cardiology 12/23/21 documented as of this encounter
--- OUTSIDE RECORDS SUMMARY | 2024-03-25 10:59 | XMS_ITS | Encounter Summary ---
Author Organization [facility] Medical Group Address [address] [facility] [address] [place] [address] Care Team Providers Care Personal Computer Specialist Name Role Phone Chris Mendes MD Unavailable [phone] Keli Orozco RN Unavailable Unavailable Alysa Newton RN Unavailable [phone] Cuba Larsen MD Primary Care Provider [phone] Reason for Referral * Diagnostic Imaging (Routine) - Closed Specialty Diagnoses / Procedures Referred By Indra t Referred To Contact Diagnoses Acute midline thoracic back pain Procedures XR Spine Thoracic 3 Vw Diane Sheriff PA [address] [place] [address] Phone: tel: fax: [address] [address] Referral ID Status Reason Start Date Expiration Date Visits Re quested Visits Authorized [id number] Closed 10/09/2022 11/08/2023 1 1 Reason for Visit * Reason Comments Back Pain Ongoing back pain Encounter Details Date Type Department Care Team (Late st Contact Info) Description 10/09/2022 1:30 PM CDT Office Visit 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 ??Rccc-xp-fidzextb multilevel facet arthropathy. ??On the frontal view, [...] D: ??10/11/2022 9:58 PM T: Report ID: [id number] Reading Location: ??[id number] Procedure Note Frank Minaya MD - 10/11/2022 [...] change. Moderate tosevere multilevel disc space narrowing. Tvkw-rs-vmqjzwns multilevel facet arthropathy. On the frontal view, [...] signed by Frank WHITE T: Report ID: [id number] Reading Location: [id number] Diane Marquis IMG XR PROCEDURES Final Result [...] documented as of this encounter Care Teams Personal Computer Specialist Relationship Specialty Start Date End Date Cuba Larsen MD [address] [facility] [address] [place] [address] PCP - General Family Medicine 01/23/22 Chris Mendes MD Referring Physician Cardiology 12/23/21 Keli Orozco, product developmentDock Coordinator Cardiology 12/23/21 04/15/23 Alysa Newton, RN [address] [facility] [address] [place] [address] Dock Coordinator Cardiology 12/23/21 documented as of this encounter
--- OUTSIDE RECORDS SUMMARY | 2024-03-25 10:59 | XMS_ITS | Encounter Summary ---
Author Organization [facility] Address [address] [place] [address] Phone Care Team Providers Care Shipping Specialist Name Role Phone Ryann Galdamez Primary Care Provider [phone] Chris Sanchez MD Unavailable [phone] Keli Orozco RN Unavailable Unavailable Alysa Newton RN Unavailable Reason for Referral * Cardiology (Routine) - Closed Specialty Diagnoses / Procedures Referred By Indra t Referred To Contact Diagnoses Acute on chronic systolic CHF (congestive heart failure) (CMS/HCC) (HCC) Procedures Transthoracic Echo (TTE) Complete W Doppler/CF Chris Sanchez MD Phone: tel: fax: [address] [address] Referral ID Status Reason Start Date Expiration Date Visits Re quested Visits Authorized [id number] Closed 01/13/2022 02/12/2023 1 1 Reason for Visit * Consultation (Routine) - Closed Specialty Diagnoses / Procedures Referred By Contac t Referred To Contact Cardiology Diagnoses Essential hypertension Atrial fibrillation, unspecified type (HCC) Chronic heart failure with preserved ejection fraction (CMS/HCC) (HCC) Cathleen Walker MD Phone: tel: fax: [facility] (All Locations) Referral ID Status Reason Start Date Expiration Date V isits Requested Visits Authorized [id number] Closed Specialty Services Required 01/02/2022 01/01/2023 12 12 Encounter Details Date Type Department Care Team (Late st Contact Info) Description 01/13/2022 1:00 PM CDT Office Visit [facility] Cardiology [address] 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 Aracelis are RNs No medication changes Return in 6 months for follow up and Echo documented in this encounter Progress Notes * Lucas Herrera MD - 01/13/2022 1:00 PM CDT Images from the original note were not included. Miguel Rojas Department of Medicine Cardiovascular Division Chris Sanchez M.D. [facility], [place] [address], [address] [place] [id number], [email or web address] Date of Visit: 01/13/2022 Patient's Name: Prema [...] Aortic stenosis, moderate Moderate CAD on 08/2020 [facility] Submassive pulmonary embolism 05/2019, provoked, occurred 1 week after left distal femoral replacement for an open fracture Right lower extremity DVT 05/2019 Hypertension Diabetes mellitus type II, insulin dependent Obstructive sleep apnea, on CPAP Hypothyroidism Left adrenal nodule HISTORY OF PRESENT ILLNESS: I had the pleasure of seeing Prema Pearce today at [facility]. As you know, she [...] nausea and vomiting) Pulmonary embolism ([facility]) Sleep apnea Stroke ([facility]/HCC) ([facility]) Zenker's diverticulum CURRENT MEDICATIONS Current Outpatient Medications: [...] with meals, Disp: 180 tablet, Rfl: 1 qzfaeboq-wtm-xweo-FA-lutein 8 mg iron-400 mcg-300 mcg tablet, Take [...] #: 0 Date of : 1940 (F) New Order Clerk: Lindsay Sanchez RDCS Referring Physician: CHRIS SANCHEZ [...] 2=Hypo 3=Akinetic 4=Dyskin./Aneurysm 0=Not visualized) Parasternal [place]:MAS=1 BAS=1 MIL=1 NIGHAT=1 Parasternal [place]:MAS=1 MIS=1 AR=1 MIL=1 MAL=1 MA=1 Apical 4 [...] Valve: mild TV regurgitation Pulmonic Valve: Mild LA AV Regurgitation: No AR seen AV Stenosis: [...] , no MS, mild TV regurgitation, Mild LA. Diastolic function: Grade II, increased mean LA [...] MVAC with mild MR. ??Mild TR and LA. ??Est. PASP 40 mm Hg, assuming an RA pressure of 10 mm Hg. ??No pericardial effusion. ??Compared with 08/31/20, the est. AV area has decreased from 1.2 to 1.0 cm2 and the LVEF has decreased from 66% to 52%. Confirmed on ??07/28/2022 - 15:31:34 by Frank Horn MD By signing this report, the attending supervisor screen printing certifies that he or she has personally supervised and interpreted the echocardiogram and has reviewed and or edited and agrees with the written comments contained within the report. Procedure Note Frank Horn MD - 07/28/2022 Patient name: Prema Pearce Date of test: 07/28/2022 Type of test: TTE /[facility] #: 0 Date of : 1940 (F) New Order Clerk: Lindsay Sanchez RDCS Referring Physician: CHRIS SANCHEZ [...] 2=Hypo 3=Akinetic 4=Dyskin./Aneurysm 0=Not visualized) Parasternal [place]:MAS=1 BAS=1 MIL=1 NIGHAT=1 Parasternal [place]:MAS=1 MIS=1 AR=1 MIL=1 MAL=1 MA=1 Apical 4 [...] Valve: mild TV regurgitation Pulmonic Valve: Mild LA AV Regurgitation: No AR seen AV Stenosis: [...] , no MS, mild TV regurgitation, Mild LA. Diastolic function: Grade II, increased mean LA [...] MVAC with mild MR. Mild TR and LA. Est. PASP 40 mm Hg, assuming an RA pressure of 10 mm Hg. No pericardial effusion. Compared with 08/31/20, the est. AV area has decreased from 1.2 to 1.0 cm2 and the LVEF has decreased from 66% to 52%. Confirmed on 07/28/2022 - 15:31:34 by Frank Horn MD By signing this report, the attending supervisor screen printing certifies that he or she has personally [...] chronic systolic CHF (congestive heart failure) (CMS/[facility]) ([facility]) documented in this encounter Historical Medications * This list may reflect changes made after this encounter. cranberry extract 200 mg capsule Take by mouth 02/03/2023 added in this encounter Care Teams Shipping Specialist Relationship Specialty Start Date End Date Ryann Galdamez PA PCP - General Dental Insurance Biller 04/02/21 01/22/22 Chris Sanchez MD Referring Physician Cardiology 12/23/21 Keli Orozco, fulleretteCrate Repairer Cardiology 12/23/21 04/15/23 Alysa Newton, RN [address] [address] Crate Repairer Cardiology 12/23/21 documented as of this encounter
--- OUTSIDE RECORDS SUMMARY | 2024-03-25 10:59 | XMS_ITS | Encounter Summary ---
Author Organization [facility] Medical Group Address [address] [facility] [address] [place] [address] Care Team Providers Care Purse Seiner Name Role Phone Ryann Galdamez Primary Care Provider [phone] Encounter Details Date Type Department Care Team (Late st Contact Info) Description 11/22/2021 Orders Only [facility] Medical [facility] Family Medicine [address] [facility] [address] [place] [address] Ryann Galdamez PA [address] [place] [address] Type 2 diabetes mellitus with other specified complication, unspecified whether retirement insulin use (HCC) (Primary Dx) Social History [...] on file 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
--- OUTSIDE RECORDS SUMMARY | 2024-03-25 10:59 | XMS_ITS | Encounter Summary ---
Author Organization [facility] Healthcare Address [address] [place] [address] Care Team Providers Care Textiles Sales Representative Name Role Phone Ryann Galdamez Primary Care Provider +1- [phone] Chris Mendes MD Unavailable [phone] Keli Orozco RN Unavailable Unavailable Alysa Newton RN Unavailable [phone] Encounter Details Date Type Department Care Team (Late st Contact Info) Description 01/17/2022 Telephone [facility] Transplant Heart [address] [address] Mailstop [phone] [place] [address] Kori Dorsey Social History Tobacco Use Types [...] file 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
--- OUTSIDE RECORDS SUMMARY | 2024-03-25 10:59 | XMS_ITS | Encounter Summary ---
Author Organization 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
--- OUTSIDE RECORDS SUMMARY | 2024-03-25 11:00 | XMS_ITS | Encounter Summary ---
Author Organization [facility] Healthcare Address [address] [place] [address] Care Team Providers Care Business Unit Director Name Role Phone Ryann Galdamez Primary Care Provider +1- [phone] Reason for Referral * Diagnostic Imaging (Routine) - Closed Specialty Diagnoses / Procedures Referred By Indra muñoz Referred To Contact Diagnoses Closed fracture of distal end of left fibula Procedures XR Ankle Left 3 or More Views Kvng Nash DO [facility] [address] [place] [address] Phone: tel: fax: [address] [address] Referral ID Status Reason Start Date Expiration Date Visits Re quested Visits Authorized [id number] Closed 07/15/2021 08/14/2022 1 1 Reason for Visit * Diagnostic Imaging (Routine) - Closed Specialty Diagnoses / Procedures Referred By Indra muñoz Referred To Contact Diagnoses Closed fracture of distal end of left fibula Procedures XR Ankle Left 3 or More Views Kvng Nash DO [address] [place] [address] Phone: tel: fax: [address] [address] Referral ID Status Reason Start Date Expiration Date Visits Re quested Visits Authorized [id number] Closed 07/15/2021 08/14/2022 1 1 Encounter Details Date Type Department Care Team (Latest Contact Info) Description 07/15/2021 11:27 AM CDT - 07/15/2021 11:59 PM CDT Hospital Encounter [facility] Diag Imaging [address] [place] [address] Closed fracture of distal end of left [...] file 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
--- OUTSIDE RECORDS SUMMARY | 2024-03-25 11:00 | XMS_ITS | Encounter Summary ---
Author Organization [facility] Medical [facility] Address [address] [place] [address] Care Team Providers Care Non Clinical Advisor Name Role Phone Ryann Galdamez Primary Care Provider +1- [phone] Reason for Referral * Diagnostic Imaging (Routine) - Closed Specialty Diagnoses / Procedures Referred By Indra muñoz Referred To Contact Procedures XR Abdomen AP 1V [facility] [address] [place] [address] Phone: tel: fax: Referral ID Status Reason Start Date Expiration Date Visits Re quested Visits Authorized [id number] Closed 06/10/2021 07/10/2022 1 1 Encounter Details Date Type Department Care Team (Late st Contact Info) Description 06/10/2021 Orders Only [facility] [address] [place] [address] Cameron Pike MD [facility] [place] [place] [address] Social History Tobacco Use Types [...] on file 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
--- OUTSIDE RECORDS SUMMARY | 2024-03-25 11:00 | XMS_ITS | Encounter Summary ---
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 * Telephone Encounter - Chang Rai - 07/04/2021 3:04 PM CDT Roxann with [facility] called to give update on patient's blood pressure. This morning it was 169/111 and came down after a couple of hours. It was then checked again and was at 145/90 within 30 mins it was back up to 163/103. The patient also saw her stone fabricator on and they wanted to discuss a medication change.Roxann would like a call back at [phone] documented in this encounter Plan of Treatment Not on file documented as of this encounter Visit Diagnoses Not on filedocumented in this encounter Care Teams Motorcycle Assembler Relationship Specialty Start Date End Date Ryann Galdamez PA PCP - General [place] Mill Operator 04/02/21 01/22/22 documented as of this encounter
--- OUTSIDE RECORDS SUMMARY | 2024-03-25 11:00 | XMS_ITS | Encounter Summary ---
Author Organization [facility] Medical Group Address [address] [place] [address] Care Team Providers Care Hand Silvering Supervisor Name Role Phone Ryann Galdamez Primary Care Provider +1- [phone] Reason for Visit * Reason Onset Date Comments Hypertension 06/17/2021 Encounter Details Date Type Department Care Team (Late st Contact Info) Description 06/17/2021 Telephone [facility] Family Medicine [address] [place] [address] Susy Waite NP [address] [place] [address] Hypertension Social History Tobacco Use [...] on file 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
--- OUTSIDE RECORDS SUMMARY | 2024-03-25 11:00 | XMS_ITS | Encounter Summary ---
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
--- OUTSIDE RECORDS SUMMARY | 2024-03-25 11:00 | XMS_ITS | Encounter Summary ---
Author Organization [facility] Medical Group Address 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
--- OUTSIDE RECORDS SUMMARY | 2024-03-25 11:00 | XMS_ITS | Encounter Summary ---
Author Organization [facility] Medical Group Address [address] [place] [address] Care Team Providers Care Oil Rag Washer Name Role Phone Ryann Galdamez Primary Care Provider +1- [phone] Reason for Visit * Reason Onset Date Comments UTI symptoms - needing a refill of antibiotic Encounter Details Date Type Department Care Team (Late st Contact Info) Description 05/31/2021 Telephone [facility] Medical Group Family Medicine [address] [place] [address] Ryann Galdamez PA [facility] [place] [address] UTI symptoms - needing a [...] on file 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
--- OUTSIDE RECORDS SUMMARY | 2024-03-25 11:00 | XMS_ITS | Encounter Summary ---
Author Organization [facility] Medical Group Address [address] [place] [address] Care Team Providers Care Exec. 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 Creative Director Relationship Specialty Start Date End Date Ryann Galdamez PA PCP - General Service Delivery Manager 04/02/21 01/22/22 Cuba Larsen MD [address] [facility] [address] [place] [address] PCP - General Family Medicine 01/23/22 Chris Mendes MD Referring Physician Cardiology 12/23/21 Keli Orozco, boring machine set up operatorInspector Metal Fabricating Cardiology 12/23/21 04/15/23 Alysa Newton, RN [address] [facility] [address] [place] [address] Inspector Metal Fabricating Cardiology 12/23/21 documented as of this encounter
--- OUTSIDE RECORDS SUMMARY | 2024-03-25 11:00 | XMS_ITS | Encounter Summary ---
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 documented in this encounter Plan of Treatment Not on file documented as of this encounter Visit Diagnoses Not on filedocumented in this encounter Care Teams Linen Room Worker Relationship Specialty Start Date End Date Ryann Galdamez PA PCP - General Nutritional Services Cook 04/02/21 01/22/22 documented as of this encounter
--- OUTSIDE RECORDS SUMMARY | 2024-03-25 11:00 | XMS_ITS | Encounter Summary ---
Author Organization [facility] Medical Group Address [address] [place] [address] Care Team Providers Care Anti Tank Missileman Name Role Phone Ryann Galdamez Primary Care Provider +1- [phone] Reason for Visit * Reason Comments Follow-up Encounter Details Date Type Department Care Team (Late st Contact Info) Description 07/15/2021 3:00 PM CDT Office Visit [facility] Medical Group Family Medicine [address] [place] [address] Ryann Galdamez PA [facility] [place], [place] [address] Anxiety (Primary Dx); Iron deficiency anemia, unspecified [...] on file 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, results pending) Still on prozac, taking a prn xanax maybe 1/d. Feeling better emotionally with the buspar. Brings list of counselors from [facility], is going to pursue this further. Has [...] Assessment & Plan: Continue with care per analysis internship Sleep disturbance (G47.9) Assessment & Plan: Stable, [...] Problem(s): Essential hypertension Continue with care per analysis internship * Assessment & Plan Note - Ryann [...] documented as of this encounter Care Teams Anti Tank Missileman Relationship Specialty Start Date End Date Ryann Galdamez PA PCP - General Mail Order Clerk 04/02/21 01/22/22 documented as of this encounter
--- OUTSIDE RECORDS SUMMARY | 2024-03-25 11:00 | XMS_ITS | Encounter Summary ---
Author Organization [facility] Medical Group Address [address] [place] [address] Care Team Providers Care Legal Transcriber Name Role Phone Ryann Galdamez Primary Care Provider +1- [phone] Reason for Visit * Reason Comments Follow-up Encounter Details Date Type Department Care Team (Late st Contact Info) Description 06/17/2021 10:30 AM CDT Office Visit [facility] Medical Group Family Medicine [address] [place] [address] Ryann Galdamez PA [facility] [place], [place] [address] Iron deficiency anemia, unspecified iron deficiency anemia [...] on file 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 She can't get in to see Dr. [...] mouth daily 90 tablet 3 ??? [DISCONTINUED] multivitamin,ve-rhfw-Jj-FA-min 27-0.4 mg tablet Take 1 tablet by [...] PM CDT) Copy Rec'd from: [facility] Comment: ?[facility] ?PRACTICE ?[address] ?[place] [address] 07/15/2021 1:26 PM CDT 07/15/2021 1:31 PM [...] LAB BLOOD ORDERABLES Final Result [facility] [address] [place] [address] * (ABNORMAL) Basic metabolic panel (07/15/2021 1:26 PM CDT) Pathologist [facility] Glucose 82 65 - 99 mg/dL [facility] Comment: ? Fasting reference interval BUN 26(H) 7 - 25 mg/dL [facility] Creatinine 0.55(L) 0.60 - 0.88 mg/dL [facility] Comment: For patients >49 years of age, the reference limit for Creatinine is approximately 13% higher for people identified as -Anguillan. eGFR NON-AFR. MALAYSIAN 89 > OR = 60 mL/min/1. 73m2 [...] LAB BLOOD ORDERABLES Final Result [facility] [address] [place] [address] * COPY(IES) SENT TO: (07/15/2021 1:26 PM CDT) COPY(IES) SENT TO: [facility] Comment: ?[facility] ALL OTHER ?MAILSTOP [id number] ?[address] ?[place] [address] 07/15/2021 1:26 PM CDT 07/15/2021 1:31 PM CDT Ryann RASHID LAB BLOOD ORDERABLES Final Result [facility] * Vitamin B12 (07/15/2021 1:26 PM CDT) Vitamin B12 497 200 - 1,100 pg/mL [facility] Comment: ? Your request to have a duplicate copy faxed has been acknowledged. ?Queued to: ??[id number] Blood specimen (specimen) 07/15/2021 1:26 PM CDT 07/15/2021 1:31 PM CDT Ryann RASHID LAB BLOOD ORDERABLES Final Result [facility] [address] [address] * (ABNORMAL) Basic metabolic panel (06/20/2021 2:12 PM CDT) Pathologist [facility] Glucose 158(H) 65 - 139 mg/dL [facility] Comment: ? Non-fasting reference interval BUN 20 7 - 25 mg/dL [facility] Creatinine 0.61 0.60 - 0.88 mg/dL [facility] Comment: For patients >49 years of age, the reference limit for Creatinine is approximately 13% higher for people identified as -Anguillan. eGFR NON-AFR. MALAYSIAN 86 > OR = 60 mL/min/1 .73m2 [facility] EGFR 99 > OR = 60 mL/min/1 .73m2 [facility] BUN/creat ratio NOT APPLICABLE 6 - 22 (calc) [facility] Sodium 141 135 - 146 mmol/L [facility] Potassium, pl 3.7 3.5 - 5.3 mmol/L [facility] Chloride 106 98 - 110 mmol/L [facility] CO2 28 20 - 32 mmol/L [facility] Calcium 9.5 8.6 - 10.4 mg/dL [facility] Blood specimen (specimen) 06/20/2021 2:12 PM CDT 06/20/2021 2:15 PM CDT Narrative [facility] - 06/21/2021 7:47 AM CDT FASTING:NO FASTING: NO Ryann RASHID LAB BLOOD ORDERABLES Final Result Performing Organization Address City/[facility]/ZIP Co de Phone Number JULIO CÉSAR [facility] [address] [phone] * (ABNORMAL) CBC with auto differential (06/20/2021 2:12 PM CDT) [facility] WBC 5.0 3.8 - 10.8 Thousand/u L [...] BLOOD ORDERABLES Final Result [facility] [address] [address] documented in this encounter Visit Diagnoses Diagnosis [...] 2 added in this encounter Care Teams Legal Transcriber Relationship Specialty Start Date End Date Ryann Galdamez PA PCP - General Supervisor Food Checkers And Cashiers 04/02/21 01/22/22 documented as of this encounter
--- OUTSIDE RECORDS SUMMARY | 2024-03-25 11:00 | XMS_ITS | Encounter Summary ---
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
--- OUTSIDE RECORDS SUMMARY | 2024-03-25 11:00 | XMS_ITS | Encounter Summary ---
Author Organization [facility] Address [address] [place] [address] Phone Care Team Providers Care Soaking Pit Operator Name Role Phone Ryann Galdamez Primary Care Provider +1- [phone] Reason for Visit * Reason Comments Consult * Consultation (Routine) - Closed Specialty Diagnoses / Procedures Referred By Contfred t Referred To Contact Hematology Diagnoses Iron deficiency anemia, unspecified iron deficiency anemia type Ryann Galdamez PA Phone: tel: fax: [facility] Hematology [address] [place] [phone] Referral ID Status Reason Start Date Expiration Date V isits Requested Visits Authorized [id number] Closed Specialty Services Required 07/01/2021 06/30/2022 12 12 Encounter Details Date Type Department Care Team (Late st Contact Info) Description 07/16/2021 2:30 PM CDT Office Visit [facility] Oncology [address] [place] [address] Jerson Michael Jr., MD [address] [place] [address] [place] [address] Iron deficiency anemia, unspecified iron deficiency anemia [...] on file 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 [...] WITH MEALS 03/05/21 Yes Linda Frost PA xogagqxb-miq-zzyl-FA-lutein 8 mg iron-400 mcg-300 mcg tablet Take [...] BLOOD ORDERABLES Final Result Performing Organization Address [facility] Co de Phone Number [facility] [address] [place] [address] * Ferritin (09/24/2021 9:55 AM CDT) Ferritin 41 16 - 288 ng/mL [facility] Blood specimen (specimen) 09/24/2021 9:55 AM CDT 09/24/2021 9:56 AM CDT Jerson Michael Jr., MD LAB BLOOD ORDERABLES Final Result Performing Organization Address [facility] de Phone Number [facility] [address] [place] [address] * Iron profile w/ IBC (09/24/2021 9:55 AM CDT) Iron 84 45 - 160 mcg/dL [facility] TIBC 418 250 - 450 mcg/dL (calc) [facility] Iron saturation 20 16 - 45 % (calc) [facility] Blood specimen (specimen) 09/24/2021 9:55 AM CDT 09/24/2021 9:56 AM CDT Jerson Michael Jr., MD LAB BLOOD ORDERABLES Final Result Performing Organization Address [facility] de Phone Number [facility] [address] [facility] [place] [address] documented in this encounter Visit Diagnoses Diagnosis Iron deficiency anemia, unspecified iron deficiency anemia type- Primary documented in this encounter Historical Medications * This list may reflect changes made after this encounter. mpzqsunk-hij-dxwk -FA-lutein 8 mg iron-400 mcg-300 mcg tablet Take by mouth 10/01/2023 added in this encounter Orders Outpatient Referral Count Last Ordered Date Fir st Ordered Date AMB REFERRAL TO HEMATOLOGY 1 07/16/2021 Appointment Requests Count Last Ordered Date Fi rst Ordered Date ONCBCN CLINIC APPOINTMENT REQUEST 1 022 documented in this encounter Care Teams Soaking Pit Operator Relationship Specialty Start Date End Date Ryann Galdamez PA PCP - General Counselor Camp 04/02/21 01/22/22 documented as of this encounter
--- OUTSIDE RECORDS SUMMARY | 2024-03-25 11:00 | XMS_ITS | Encounter Summary ---
Author Organization [facility] Address [address] [address] Care Team Providers Care Supervisor Compressed Yeast Name Role Phone Ryann Galdamez Primary Care Provider +1- [phone] Reason for Referral * Diagnostic Imaging (Routine) - Closed Specialty Diagnoses / Procedures Referred By Indra muñoz Referred To Contact Diagnoses Closed fracture of distal end of left fibula Procedures XR Ankle Left 3 or More Views Kvng Nash DO [address] [place] [address] Phone: tel: fax: [address] [phone] Referral ID Status Reason Start Date Expiration Date Visits Re quested Visits Authorized [id number] Closed 07/15/2021 08/14/2022 1 1 Reason for Visit * Reason Comments Pain Follow-up * Consultation (Routine) - Closed Specialty Diagnoses / Procedures Referred By Indra muñoz Referred To Contact Orthopedic Surgery Diagnoses Traumatic closed nondisplaced fracture of distal fibula, left, with routine healing, subsequent encounter Kvng Nash DO [address] [place] [address] Phone: tel: fax: [facility] Orthopedics and Sports Medicine [address] [facility] [address] [place] [address] Phone: tel: fax: Referral ID Status Reason Start Date Expiration Date V isits Requested Visits Authorized [id number] Closed Specialty Services Required 06/11/2021 06/10/2022 12 12 Encounter Details Date Type Department Care Team (Late st Contact Info) Description 07/15/2021 11:30 AM CDT Office Visit 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 Gender Identity Not on file Sexual [...] D: ??07/16/2021 2:57 PM T: Report ID: [id number] Reading Location: ??[id number] Procedure Note Ravi Lombardo MD - 07/16/2021 [...] signed by Ravi CRAIN T: Report ID: [id number] Reading Location: [id number] Kvng Nash DO IMG XR PROCEDURES Final Result documented in this encounter Visit Diagnoses Diagnosis Closed fracture of distal end of left fibula- Primary Closed fracture of distal end of left fibula documented in this encounter Care Teams Supervisor Compressed Yeast Relationship Specialty Start Date End Date Ryann Galdamez PA PCP - General Director Of Mechanical Engineering 04/02/21 01/22/22 documented as of this encounter
--- OUTSIDE RECORDS SUMMARY | 2024-03-25 11:00 | XMS_ITS | Encounter Summary ---
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 eGFR NON-AFR. RWANDAN 87 > OR = 60 mL/min/1. 73m2 [...] LAB BLOOD ORDERABLES Final Result [facility] [address] [place] [address] * (ABNORMAL) CBC with auto differential (06/13/2021 [...] LAB BLOOD ORDERABLES Final Result [facility] [address] [address] documented in this encounter Visit Diagnoses Diagnosis Iron deficiency anemia, unspecified iron deficiency anemia type- Primary documented in this encounter Discontinued Medications Medication Sig Discontinue Reason Start Date End Da te losartan (COZAAR) 25 mg tablet Take 1 tablet (25 mg total) by mouth daily 06/03/2021 06/13/2021 documented as of this encounter Care Teams Hydrometer Tester Relationship Specialty Start Date End Date Ryann Galdamez PA PCP - General Aquatic Physiotherapist 04/02/21 01/22/22 documented as of this encounter
--- OUTSIDE RECORDS SUMMARY | 2024-03-25 11:00 | XMS_ITS | Encounter Summary ---
Author Organization [facility] Address [address] [place] [address] Phone Care Team Providers Care Carbon Sequestration Plant Engineer Name Role Phone Ryann Galdamez Primary Care Provider +1- [phone] Encounter Details Date Type Department Care Team (Late st Contact Info) Description 05/29/2021 Telephone [facility] Cardiology [address] [facility] Advanced Medicine 8th [place] [address] [place] [address] Cathleen Walker MD [address] [facility] [address] [place] [address] Social History Tobacco Use Types [...] file 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
--- OUTSIDE RECORDS SUMMARY | 2024-03-25 11:00 | XMS_ITS | Encounter Summary ---
Author Organization [facility] Healthcare Address [address] [place] [address] Care Team Providers Care Field Crop Farming Supervisor Name Role Phone Ryann Galdamez Primary Care Provider +1- [phone] Reason for Referral * Diagnostic Imaging (Routine) - Closed Specialty Diagnoses / Procedures Referred By Indra muñoz Referred To Contact Diagnoses Closed fracture of distal end of left fibula Procedures XR Ankle Left 3 or More Views Kvng Nash DO [address] [place] [address] Phone: tel: fax: [address] [address] Referral ID Status Reason Start Date Expiration Date Visits Re quested Visits Authorized [id number] Closed 06/18/2021 07/18/2022 1 1 Reason for Visit * Diagnostic Imaging (Routine) - Closed Specialty Diagnoses / Procedures Referred By Indra muñoz Referred To Contact Diagnoses Closed fracture of distal end of left fibula Procedures XR Ankle Left 3 or More Views Kvng Nash DO [address] [facility] [address] [place] [address] Phone: tel: fax: [address] [address] Referral ID Status Reason Start Date Expiration Date Visits Re quested Visits Authorized [id number] Closed 06/18/2021 07/18/2022 1 1 Encounter Details Date Type Department Care Team (Latest Contact Info) Description 06/20/2021 10:58 AM CDT - 06/20/2021 11:59 PM CDT Hospital Encounter [facility] MOB 1 DIAG IMG [address] [place] [address] Closed fracture of distal end of left [...] on file 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 KN: PARAS Report ID: [id number] Reading Location: [place] [address] Kvng Nash DO IMG XR PROCEDURES Final Result documented in this encounter Visit Diagnoses Diagnosis Closed fracture of distal end of left fibula documented in this encounter Care Teams Field Crop Farming Supervisor Relationship Specialty Start Date End Date Ryann Galdamez PA PCP - General Solar Lab Technician 04/02/21 01/22/22 documented as of this encounter
--- OUTSIDE RECORDS SUMMARY | 2024-03-25 11:00 | XMS_ITS | Encounter Summary ---
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
--- OUTSIDE RECORDS SUMMARY | 2024-03-25 11:00 | XMS_ITS | Encounter Summary ---
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 She was told by her previous facsimile operator to go to ED if her BP was >120> She is asking if she should wait to see what the new medication willdo? Or go to the ED as previously instructed. PLS call her back EDIS documented in this encounter Plan of Treatment Not on file documented as of this encounter Visit Diagnoses Not on filedocumented in this encounter Care Teams Saddle And Side Wire Stitcher Relationship Specialty Start Date End Date Ryann Galdamez PA PCP - General Rag Production Worker 04/02/21 01/22/22 documented as of this encounter
--- OUTSIDE RECORDS SUMMARY | 2024-03-25 11:00 | XMS_ITS | Encounter Summary ---
Author Organization [facility] Medical Group Address [address] [facility] [facility] [address] [place] [address] Care Team Providers Care Internet Webmaster Name Role Phone Ryann Galdamez Primary Care Provider +1- [phone] Reason for Referral * Consultation (Routine) - Closed Specialty Diagnoses / Procedures Referred By Indra t Referred To Contact Hematology Diagnoses Iron deficiency anemia, unspecified iron deficiency anemia type Ryann Galdamez PA Phone: tel: fax: [facility] Hematology [address] [facility] [address] [place] [address] Referral ID Status Reason Start Date Expiration Date V isits Requested Visits Authorized [id number] Closed Specialty Services Required 07/01/2021 06/30/2022 12 12 Question Answer Please select the performing region: [facility] (All Locations) [[id number]] Please select the performing department: [facility] HEM MHE2 [id number] [[id number]] # of visits: 1 Reason for Visit * Reason Comments Follow-up Blood work from Armen carl- just put it in Encounter Details Date Type Department Care Team ([facility] st Contact Info) Description 06/03/2021 11:00 AM CDT Office Visit [facility] Family Medicine [address] [facility] [address] [place] [address] Ryann Galdamez PA [address] [place] [address] Cerebrovascular accident (CVA) due to occlusion of [...] on file 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 She also fell [...] the stone has passed. She went to [facility] yesterday due to the pain, they [...] DAY WITH MEALS 180 tablet 1 ??? 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 ([facility]) ([facility]) (I63.50) (Primary) Assessment & Plan: Will [...] end of left fibula with routine healing (S82.799U) Assessment & Plan: She has pending referral [...] Referral Reason: Specialty Services Required Referral Location: [facility] (All Locations) Requested Specialty: Hematology Number of [...] BLOOD ORDERABLES Final Result [facility] [address] [place] [address] documented in this encounter Visit Diagnoses Diagnosis [...] documented as of this encounter Care Teams Internet Webmaster Relationship Specialty Start Date End Date yRann Galdamez PA PCP - General Administrative Support Associate 04/02/21 01/22/22 documented as of this encounter
--- OUTSIDE RECORDS SUMMARY | 2024-03-25 11:00 | XMS_ITS | Encounter Summary ---
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 documented in this encounter Plan of Treatment Not on file documented as of this encounter Visit Diagnoses Not on filedocumented in this encounter Care Teams Motor Builder Winder Relationship Specialty Start Date End Date Ryann Galdamez PA PCP - General Investments Manager 04/02/21 01/22/22 documented as of this encounter
--- OUTSIDE RECORDS SUMMARY | 2024-03-25 11:00 | XMS_ITS | Encounter Summary ---
Author Organization [facility] Medical [facility] Address [address] [facility] [address] [place] [address] Care Team Providers Care Parts Cataloguer Name Role Phone Ryann Galdamez Primary Care Provider +1- [phone] Reason for Visit * Reason Comments Urinary Symptom Had kidney stones bl asted on 05/21. [facility] to [facility] ER, fragment of stone was found in her bladder. Had stroke on 05/25. 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 She was a GO for thrombectomy (mRS 0) and achieved TICI 3 reperfusion after two passes with stent retriever. The clot was reportedly very fibrous and somewhat difficult to retrieve. The procedure was complicated by AFib with RVR (max [id number]); given this in conjunction with concern for [...] Appointment was set for her with a [facility] physician on 06/13 but it to be very difficult for her to get to [facility] so would prefer to transition care to Orthopedics in [place]. She states currently she is pain-free /HF/HTN: Patient has moderate aortic stenosis with heart failure but preserved ejection fracture. Her last EF was 66%. She is continue with the Lasix 40/ Klor-Con 20 meq bid and Coreg 25 mg b.i.d. she appearscompensated today. She will need to continue following with Cardio but again she would prefer to transition to [facility] for this care is is becoming increasingly difficult to get to [facility]. Will make the referral to a local advertising operations coordinator. Stress/Depression: Son and have both recently . 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 multivitamin,so-mzmz-Om-FA-min 27-0.4 mg tablet Take 1 tablet by [...] Assessment & Plan: Patient was known AFib. 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 She would prefer to see a cardiology in this area so will make the referral to Dr. sams at [facility]. She is currently on Eliquis [...] see Orthopedics and has been scheduled at [facility] that would prefer to be seen in the shadow area. Will make referral to Ortho in [place] for definitive management of this ankle fracture. [...] been provided to and reviewed with the patient/critical care physician prior to discharge. RACHID Rogers Cosigned by Cuba Larsen MD at 06/03/2021 8:39 AM CDT documented in this encounter Miscellaneous Notes * Assessment & Plan Note - iLnda Frost PA - 06/02/2021 9:59 AM CDT [...] see Orthopedics and has been scheduled at [facility] that would prefer to be seen in the shadow area. Will make referral to Ortho in [place] for definitive management of this ankle fracture. [...] (CMS/HCC) (HCC) (Deleted) Patient was known AFib. 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 She would prefer to see a cardiology in this area so will make the referral to Dr. sams at [facility]. She is currently on Eliquis [...] Large Ketones, ur, POC Negative Negative Specific [place], POC 1.025 1.005 - 1.030 Blood, ur, POC Negative Negative pH, ur, POC 6.5 5.0 - 8.0 Protein, ur, POC Trace(A) Negative Urobilinogen, urine, POC 0.2 0.2 - 1.0 mg/dL Nitrite, ur, POC Negative Negative Leukocytes, ur, POC Negative Negative Lot Number [id number] Urine 06/03/2021 8:00 AM CDT Linda RASHID [...] 0 EXTERNAL LAB SCRIBED eGFR in NonAfrican Turkish 0 0 - 0 EXTERNAL LAB Blood specimen (specimen) 06/02/2021 Linda RASHID LAB BLOOD ORDERABLES Final Result EXTERNAL LAB * Urine culture Urine, clean voided (05/31/2021 10:02 AM CDT) Urine culture [facility] Comment: ??CULTURE, URINE, ROUTINE ?Micro Number: ?[id number] ??Test Status: ? Final ??Specimen Source: ?? [...] GENERAL ORDERABLES Final Result Performing Organization Address City/[facility]/ZIP Co de Phone Number [facility] [address] [place] [address] * TSH (05/31/2021) Pathologist [facility] Scribed TSH 2.61 0.47 - 4.68 mcU/mL [...] reflect changes made after this encounter. multivitamin,tx-i qoo-Dr-AP-min 27-0.4 mg tablet Take 1 tablet by mouth daily 06/17/2021 added in this encounter Care Teams Parts Cataloguer Relationship Specialty Start Date End Date Ryann Galdamez PA PCP - General Lunchroom Monitor 04/02/21 01/22/22 documented as of this encounter
--- OUTSIDE RECORDS SUMMARY | 2024-03-25 11:00 | XMS_ITS | Encounter Summary ---
Author Organization [facility] Address [address] [place] [address] Phone Care Team Providers Care Hooker Laster Name Role Phone Ryann Galdamez Primary Care Provider +1- [phone] Reason for Visit * Consultation (Routine) - Closed Specialty Diagnoses / Procedures Referred By Contac t Referred To Contact Cardiology Diagnoses Acute on chronic systolic CHF (congestive heart failure) (CMS/HCC) (HCC) Atrial fibrillation, unspecified type (HCC) Ryann Galdamez PA Phone: tel: fax: [facility] (All Locations) Referral ID Status Reason Start Date Expiration Date V isits Requested Visits Authorized [id number] Closed Specialty Services Required 10/31/2020 11/30/2021 6 6 Encounter Details Date Type Department Care Team (Late st Contact Info) Description 07/02/2021 1:40 PM CDT Office Visit [facility] Cardiology [address] [facility] 8th [place] [address] [place] [address] Chris Mendes MD [address] [facility] [address] [place] [address] Essential hypertension (Primary Dx); Paroxysmal atrial fibrillation (CMS/HCC) (HCC); Chronic combined systolic (congestive) and diastolic (congestive) heart failure (HCC); Hypertensive heart disease with heart failure (CMS/HCC) ([facility]) Social History Tobacco Use Types [...] on file 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 [employer] at [facility], [place] [address] [facility], [address] [place] [id number], [email or web address] Date of Visit: 07/02/2021 Patient's Name: Prema [...] stenosis, moderate 4. Moderate CAD on 08/2020 [facility] 5. Submassive pulmonary embolism 05/2019, provoked, occurred 1 week after left distal femoral replacement for an open fracture 6. Right lower extremity DVT 05/2019 7. Hypertension 8. Diabetes mellitus type II, insulin dependent ?? 9. Obstructive sleep apnea, on CPAP 10. Hypothyroidism 11. Left adrenal nodule ?? HISTORY OF PRESENT ILLNESS: I had the pleasure of seeing Prema Pearce today at [facility] Heart Failure [facility]. As you know, she is a 81 y.o. female with a history of atrial fibrillation, recent CVA, aortic stenosis and pulmonary embolism who presents to [facility] care. She was referred by her family [...] PhD Fellow, Advanced Heart Failure and Transplant Formerly [facility] in [facility] Cosigned by Chris Mendes MD at 07/02/2021 [...] Primary Unspecified essential hypertension Paroxysmal atrial fibrillation (CMS/[facility]) (HCC) Atrial fibrillation Chronic combined systolic (congestive) and diastolic (congestive) heart failure (HCC) Hypertensive heart disease with heart failure (CMS/[facility]) (HCC) Unspecified hypertensive heart disease with heart [...] 08/26/2021 added in this encounter Care Teams Hooker Laster Relationship Specialty Start Date End Date Ryann Galdamez PA PCP - General Pigment Making Supervisor 04/02/21 01/22/22 documented as of this encounter
--- OUTSIDE RECORDS SUMMARY | 2024-03-25 11:00 | XMS_ITS | Encounter Summary ---
Author Organization [facility] Address [address] [facility] [address] [place] [address] Care Team Providers Care Integration Manager Name Role Phone Ryann Galdamez Primary Care Provider +1- [phone] Reason for Visit * Reason Onset Date Comments verbal consent for home health orders 05/30/2021 Encounter Details Date Type Department Care Team (Late st Contact Info) Description 05/30/[address] 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
--- OUTSIDE RECORDS SUMMARY | 2024-03-25 11:00 | XMS_ITS | Encounter Summary ---
Author Organization [facility] Address [address] [address] Care Team Providers Care Cutting Department Supervisor Name Role Phone Ryann Galdamez Primary Care Provider +1- [phone] Reason for Referral * Diagnostic Imaging (Routine) - Closed Specialty Diagnoses / Procedures Referred By Indra muñoz Referred To Contact Diagnoses Closed fracture of distal end of left fibula Procedures XR Ankle Left 3 or More Views Kvng Nash DO [address] [place] [address] Phone: tel: fax: [address] [address] Referral ID Status Reason Start Date Expiration Date Visits Re quested Visits Authorized [id number] Closed 06/18/2021 07/18/2022 1 1 Reason for Visit * Reason Comments Fracture * Consultation (Routine) - Closed Specialty Diagnoses / Procedures Referred By Indra muñoz Referred To Contact Orthopedic Surgery Diagnoses Traumatic closed nondisplaced fracture of distal fibula, left, with routine healing, subsequent encounter Kvng Nash DO [address] [place] [address] Phone: tel: fax: [facility] Orthopedics and Sports Medicine [address] [place] [address] [place] [address] Phone: tel: fax: Referral ID Status Reason Start Date Expiration Date V isits Requested Visits Authorized [id number] Closed Specialty Services Required 06/11/2021 06/10/2022 12 12 Encounter Details Date Type Department Care Team (Late st Contact Info) Description 06/20/2021 11:00 AM CDT Office Visit [facility] Medical [facility] Orthopedics and Sports Medicine [facility] [address] Kvng Nash DO [address] [place] [address] Closed fracture of distal end of [...] on file 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 Gender Identity Not on file [...] past medical history of Adrenal nodule (CMS/HCC) ([facility]), Anxiety, Aortic stenosis, moderate, Atrial fibrillation (CMS/HCC) (HCC), Cardiomyopathy (HCC), Diabetes mellitus (HCC), Dyslipidemia,GERD (gastroesophageal reflux disease), Heart murmur, HFrEF (heart failure with reduced ejection fraction) (CMS/HCC) ([facility]), Hyperlipidemia, Hypertension, Hypothyroidism, Insomnia, Mitral regurgitation, NSTEMI (non-ST elevated myocardial infarction) (CMS/HCC) ([facility]), Obesity, AYAD on CPAP, Patellar sleeve fracture of left knee, PONV (postoperative nausea and vomiting), Pulmonary embolism ([facility]), Sleep apnea, Stroke (CMS/HCC) ([facility]), and Zenker's diverticulum. She has no [...] AM T: ??06/21/2021 9:24 AM Report ID: [id number] Reading Location: ??[id number] Procedure Note Ravi Lombardo MD - 06/21/2021 [...] Ravi Lombardo M.D. KN: PARAS Report ID: [id number] Reading Location: [place] [address] Kvng Nash DO IMG XR PROCEDURES Final [...] 2021 documented in this encounter Care Teams Cutting Department Supervisor Relationship Specialty Start Date End Date Ryann Galdamez PA PCP - General Fishing Vessel Mate 04/02/21 01/22/22 documented as of this encounter
--- OUTSIDE RECORDS SUMMARY | 2024-03-25 11:00 | XMS_ITS | Encounter Summary ---
Author Organization [facility] Address [address] [place] [address] Phone Care Team Providers Care Sole Molder Name Role Phone Ryann Galdamez Primary Care Provider +1- [phone] Chris Mendes MD Unavailable Keli Orozco RN Unavailable Unavailable Alysa Newton RN Unavailable [phone] Cuba Larsen MD Primary Care Provider [phone] Keli Orozco RN Unavailable Unavailable Keli Orozco RN Unavailable Unavailable Tami Mcknight RN Unavailable Unavailab le Encounter Details Date Type Department Care Team (Late st Contact Info) Description 06/24/2021 Telephone [facility] Cardiology [address] 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 Gender Identity Not on file Sexual Orientation Not on file documented as of this encounter Plan of Treatment Not on file documented as of this encounter Visit Diagnoses Not on filedocumented in this encounter Care Teams Sole Molder Relationship Specialty Start Date End Date Ryann Galdamez PA PCP - General Rouge Mixer 04/02/21 01/22/22 Cuba Larsen MD [address] [address] PCP - General Family Medicine 01/23/22 Chris Mendes MD Referring Physician Cardiology 12/23/21 Keli Orozco, handkerchief presserSpinning Bath Person Cardiology 12/23/21 04/15/23 Alysa Newton, RN [address] [address] Spinning Bath Person Cardiology 12/23/21 Keli Orozco, manager of software Failure Coordinator 04/02/23 4 Keli Orozco, manager of software Failure Coordinator Transplant 04/15/23 Tami Mcknight manager of software Failure Coordinator Cardiology 09/14/23 documented as of this encounter
--- OUTSIDE RECORDS SUMMARY | 2024-03-25 11:01 | XMS_ITS | Encounter Summary ---
Author Organization [facility] Address [address] [facility] [address] [place] [address] Care Team Providers Care Associate Director Career Services Name Role Phone Ryann Galdamez Primary Care Provider +1- [phone] Reason for Visit * Reason Onset Date Comments Med Refill 04/29/2021 Encounter Details Date Type Department Care Team (Late st Contact Info) Description 04/29/2021 Telephone [facility] Family Medicine [address] [facility] [address] [place] [address] Ryann Galdamez PA [facility] [place] [address] Med Refill Social History Tobacco [...] on file 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 Will transmit to [facility]. STIC SPECIALIST * Telephone Encounter - Nakita Mustafa - 04/29/2021 1:52 PM CST zolpidem (AMBIEN) 10 mg tablet patient would like a 90 days supply if that's ok STIC SPECIALIST documented in this encounter Plan of [...] as of this encounter Care Teams Associate Director Career Services Relationship Specialty Start Date End Date Ryann Galdamez PA PCP - General Construction Mgr 04/02/21 01/22/22 documented as of this encounter
--- OUTSIDE RECORDS SUMMARY | 2024-03-25 11:01 | XMS_ITS | Encounter Summary ---
Author Organization [facility] Address [address] [facility] [address] [place] [address] Care Team Providers Care Vice President Tax Name Role Phone Ryann Galdamez Primary Care Provider +1- [phone] Ryann Galdamez Primary Care Provider +1- [phone] Reason for Visit * Reason Onset Date Comments Blood in Urine 03/22/2021 Encounter Details Date Type Department Care Team (Late st Contact Info) Description 03/22/2021 Telephone [facility] Family Medicine [address] [facility] [address] [place] [address] Ryann Galdamez PA [address] [place] [address] Blood in Urine Social History [...] on file 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 She will wait for their call. TOP SPECIALIST * Telephone Encounter - Linda Frost PA - 03/22/2021 8:16 AM DESKTOP SPECIALIST Reviewed patient chart. CT yesterday showed multiple [...] to above 102 sheis to consider ER. TOP SPECIALIST * Telephone Encounter - Raiza Desir MA [...] but more of an ache than anything. TOP SPECIALIST documented in this encounter Plan of Treatment Not on file documented as of this encounter Visit Diagnoses Not on filedocumented in this encounter Care Teams Vice President Tax Relationship Specialty Start Date End Date Ryann Galdamez PA PCP - General Exchange Teller 07/16/20 04/01/21 Ryann Galdamez PA PCP - General Exchange Teller 04/02/21 01/22/22 documented as of this encounter
--- OUTSIDE RECORDS SUMMARY | 2024-03-25 11:01 | XMS_ITS | Encounter Summary ---
Author Organization [facility] Address [address] [facility] [address] [place] [address] Care Team Providers Care Communication Assistant Name Role Phone Ryann Galdamez Primary Care Provider +1- [phone] Encounter Details Date Type Department Care Team (Late st Contact Info) Description 03/22/[address] 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 IAL TRACKWORK BLACKSMITH documented in this encounter Plan of Treatment Not on file documented as of this encounter Visit Diagnoses Not on filedocumented in this encounter Care Teams Communication Assistant Relationship Specialty Start Date End Date Ryann Galdamez PA PCP - General Extension Course Coordinator 07/16/20 04/01/21 documented as of this encounter
--- OUTSIDE RECORDS SUMMARY | 2024-03-25 11:01 | XMS_ITS | Encounter Summary ---
Author Organization [facility] Address [address] [place] [address] Phone Care Team Providers Care Pneumatic Jack Operator Name Role Phone Ryann Galdamez Primary Care Provider +1- [phone] Reason for Visit * Reason Onset Date Comments needs to r/s appt with any Hear Failure doc 04/2021 Encounter Details Date Type Department Care Team (Late st Contact Info) Description 05/15/2021 Telephone [facility] Cardiology [address] [facility] [address] [place] [address] Cathleen Walker MD [address] [place] [address] [address] [email or web address] [place] [address] needs to r/s appt with [...] on file 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 MOBILE DRIVER documented in this encounter Plan of Treatment Not on file documented as of this encounter Visit Diagnoses Not on filedocumented in this encounter Care Teams Pneumatic Jack Operator Relationship Specialty Start Date End Date Ryann Galdamez PA PCP - General Test Desk Operator 04/02/21 01/22/22 documented as of this encounter
--- OUTSIDE RECORDS SUMMARY | 2024-03-25 11:01 | XMS_ITS | Encounter Summary ---
Author Organization [facility] Address [address] [place] [address] Phone Care Team Providers Care Shactor Name Role Phone Ryann Galdamez Primary Care Provider +1- [phone] Encounter Details Date Type Department Care Team (Late st Contact Info) Description 05/27/[address] 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
--- OUTSIDE RECORDS SUMMARY | 2024-03-25 11:01 | XMS_ITS | Encounter Summary ---
Author Organization [facility] Address [address] [facility] [address] [place] [address] Care Team Providers Care Pharmacognosy Teacher Name Role Phone Ryann Galdamez Primary Care Provider +1- [phone] Encounter Details Date Type Department Care Team (Late st Contact Info) Description 04/22/2021 Telephone [facility] Family Medicine [address] [facility] [address] [place] [address] Ryann Galdamez PA [facility] [place] [address] Social History Tobacco Use Types [...] on file 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 She has taken herself off of prozac. She has been taking xanax 0.25mg in AM, 0.5mg at noon, and 0.25mg in PM. [place] has been airlifted to [place] due tocovid related lung illness, and she has a pending cystoscopy with urology that has her concerned. Will increase the xanax to 0.5mg tid prn anxiety, will send to [facility]. She will let us know result of increase and if we can be of further assistance. CAT OPERATOR documented in this encounter Plan of [...] documented as of this encounter Care Teams Pharmacognosy Teacher Relationship Specialty Start Date End Date Ryann Galdamez PA PCP - General Turbine Room Attendant 04/02/21 01/22/22 documented as of this encounter
--- OUTSIDE RECORDS SUMMARY | 2024-03-25 11:01 | XMS_ITS | Encounter Summary ---
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 She will let us know if needing assistance or if symptoms develop. ISION INSPECTOR documented in this encounter Plan of [...] 04/22/2021 added in this encounter Care Teams Switchboard And Control Room Operator Relationship Specialty Start Date End Date Ryann Galdamez PA PCP - General Vapor Coater 07/16/20 04/01/21 documented as of this encounter
--- OUTSIDE RECORDS SUMMARY | 2024-03-25 11:01 | XMS_ITS | Encounter Summary ---
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 Pearce. Over the next week she has a cystoscopy planned. She notes that she's feeling tired and a little overwhelmed with it all. I will send in bactrim for her to continue as she'sconcerned her urine is still cloudy even with increasing her water intake. She will keep us updatedas to the appt in the next week. MACHINE OPERATOR MULTIPLE SPINDLE * Telephone Encounter - Raiza Desir MA - 03/28/2021 2:13 PM CST Note should have stated she finished her antibiotics two days ago. She wanted to know if she shouldget more. She is seeing Dr. Jara at [facility] Urolog She is getting a CT AB/ Pelvis W/WO in his office on 04/04/2020. I will cancel the CT scheduled at [facility]. Patient wants to talk to provider. MACHINE OPERATOR MULTIPLE SPINDLE * Telephone Encounter - Dash Anderson MA - 03/28/2021 12:48 PM BAR MACHINE OPERATOR MULTIPLE SPINDLE Patient in called about UTI. She was today by urology that state she has blood in her urine. But took her antibiotic day before yesterday. Would like to do talk with the provider personal. MACHINE OPERATOR MULTIPLE SPINDLE documented in this encounter Plan of Treatment Not on file documented as of this encounter Visit Diagnoses Not on filedocumented in this encounter Care Teams Pit Steward Relationship Specialty Start Date End Date Ryann Galdamez PA PCP - General Insulation Board Head Saw Operator 07/16/20 04/01/21 documented as of this encounter
--- OUTSIDE RECORDS SUMMARY | 2024-03-25 11:01 | XMS_ITS | Encounter Summary ---
Author Organization [facility] Address [address] [facility] [address] [place] [address] Care Team Providers Care Director Of Collections Name Role Phone Ryann Galdamez Primary Care Provider +1- [phone] Encounter Details Date Type Department Care Team (Late st Contact Info) Description 03/21/[address] 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 Will refer her to urology. ARTIST documented in this encounter Plan of Treatment Not on file documented as of this encounter Visit Diagnoses Diagnosis History of nephrolithiasis- Primary Acute cystitis with hematuria documented in this encounter Care Teams Director Of Collections Relationship Specialty Start Date End Date Ryann Galdamez PA PCP - General Marketing Manager Health Communications 07/16/20 04/01/21 documented as of this encounter
--- OUTSIDE RECORDS SUMMARY | 2024-03-25 11:01 | XMS_ITS | Encounter Summary ---
Author Organization [facility] Medical Group Address [address] [place] [address] Care Team Providers Care Advertising Associate Name Role Phone Ryann Galdamez Primary Care Provider +1- [phone] Reason for Visit * Reason Onset Date Comments Anemia 05/17/2021 Encounter Details Date Type Department Care Team (Late st Contact Info) Description 05/17/2021 Telephone [facility] Medical Group Family Medicine [address] [place] [address] Ryann Galdamez PA [facility] [place] [address] Anemia Social History Tobacco Use [...] on file 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 We discussed potential etiologies of anemia and will enter order for quest for later this week for further investigation. Please retrieve her labs from urology from the last week as she is unsure of her hgb level. ER SUPERVISOR * Telephone Encounter - Karoline Cooper LPN - 05/17/2021 10:35 AM PLATER SUPERVISOR Patient called in, states she has urology [...] Thursday. She was fine with that plan. ER SUPERVISOR documented in this encounter Plan of [...] Primary documented in this encounter Care Teams Advertising Associate Relationship Specialty Start Date End Date Ryann Galdamez PA PCP - General Flattening Machine Operator 04/02/21 01/22/22 documented as of this encounter
--- OUTSIDE RECORDS SUMMARY | 2024-03-25 11:01 | XMS_ITS | Encounter Summary ---
Author Organization [facility] Address [address] [place] [address] Phone Care Team Providers Care Spa Therapist Name Role Phone Ryann Galdamez Primary Care Provider +1- [phone] Encounter Details Date Type Department Care Team (Late st Contact Info) Description 05/14/2021 Telephone [facility] Cardiology [address] 8th [place] [address] [place] [address] Cathleen Walker MD [address] [facility] [address] [place] [address] Social History Tobacco Use Types [...] file 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FILES Gender Identity Not on file Sexual Orientation Not on file documented as of this encounter Miscellaneous Notes * Telephone Encounter - Paulina Bright RN - 05/14/2021 1:31 PM SUPERVISOR FILES Will have DW sign and then fax RVISOR FILES * Telephone Encounter - Alise Anderson - 05/14/2021 12:39 PM CST cardiac clearance CALLER NAME: SHAY TREJO FACILITY NAME: [facility] PHONE NUMBER: [phone] EXT [phone] FAX NUMBER: [phone] TYPE OF SURGERY: LITHOTRIPSY NAME OF SURGEON: DR MIGEL COLBERT SCHEDULED FOR: 05/21/21 MEDICATION TO BE HELD: FOR DAYS COMMENTS: RVISOR FILES documented in this encounter Plan of Treatment Not on file documented as of this encounter Visit Diagnoses Not on filedocumented in this encounter Care Teams Spa Therapist Relationship Specialty Start Date End Date Ryann Galdamez PA PCP - General Candy Mixer 04/02/21 01/22/22 documented as of this encounter
--- OUTSIDE RECORDS SUMMARY | 2024-03-25 11:01 | XMS_ITS | Encounter Summary ---
Author Organization [facility] Medical Group Address [address] [place] [address] Care Team Providers Care Flexographic Printing Machinist Name Role Phone Ryann Galdamez Primary Care Provider +1- [phone] Encounter Details Date Type Department Care Team (Late st Contact Info) Description 04/22/2021 Telephone [facility] Medical Group Family Medicine [address] [place] [address] Ryann Galdamez PA [facility] [place] [address] Social History Tobacco Use Types [...] file 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 When she returned the call, I spoke with her about increasing her medication. I have already transmitted the medication for her. [place] BANKER * Telephone Encounter - Nohemi Calvo - 04/22/2021 10:19 AM CST Prema would like to talk to you regarding her meds and possibly making a change. She is not able to come in for a visit in the near future. [place] BANKER documented in this encounter Plan of Treatment Not on file documented as of this encounter Visit Diagnoses Not on filedocumented in this encounter Care Teams Flexographic Printing Machinist Relationship Specialty Start Date End Date Ryann Galdamez PA PCP - General Forming Machine Upkeep Mechanic 04/02/21 01/22/22 documented as of this encounter
--- OUTSIDE RECORDS SUMMARY | 2024-03-25 11:01 | XMS_ITS | Encounter Summary ---
Author Organization [facility] Address [address] [place] [address] Phone Care Team Providers Care Network Operations Center Engineer Name Role Phone Ryann Galdamez Primary Care Provider +1- [phone] Reason for Referral * Consultation (Routine) - Closed Specialty Diagnoses / Procedures Referred By Contac t Referred To Contact Cardiology Diagnoses Essential hypertension Atrial fibrillation, unspecified type (HCC) Chronic heart failure with preserved ejection fraction (CMS/HCC) (HCC) Cathleen Walker MD Phone: tel: fax: [facility] (All Locations) Referral ID Status Reason Start Date Expiration Date V isits Requested Visits Authorized [id number] Closed Specialty Services Required 01/02/2022 01/01/2023 12 12 Question Answer Please select the performing region: [facility] (All Locations) [167] # of visits: 1 MBLER FOR PULLER OVER MACHINE Reason for Visit * Consultation (Routine) - Closed Specialty Diagnoses / Procedures Referred By Contac t Referred To Contact Cardiology Diagnoses Essential hypertension Atrial fibrillation, unspecified type (HCC) Chronic heart failure with preserved ejection fraction (CMS/HCC) (HCC) Cathleen Walker MD Phone: tel: fax: [facility] (All Locations) Referral ID Status Reason Start Date Expiration Date V isits Requested Visits Authorized [id number] Closed Specialty Services Required 01/02/2022 01/01/2023 12 12 Encounter Details Date Type Department Care Team (Late st Contact Info) Description 04/15/2021 11:45 AM ASSEMBLER FOR PULLER OVER MACHINE Office Visit [facility] Cardiology [address] [place] [address] Cathleen Walker MD [address] [facility] [address] [facility] [place] [address] Essential hypertension (Primary Dx); Atrial fibrillation, unspecified type (HCC); Chronic heart failure with preserved ejection fraction (CMS/HCC) (HCC); Coronary artery disease involving [place] coronary artery of [place] heart with angina pectoris (CMS/HCC) (HCC) Social [...] on file Legal Sex Female 4:20 AM ASSEMBLER FOR PULLER OVER MACHINE Gender Identity Not on file Sexual Orientation Not on file documented as of this encounter Last Filed Vital Signs Vital Sign Reading Time Taken Comments Blood Pressure 98/77 04/15/2021 11:35 AM ASSEMBLER FOR PULLER OVER MACHINE Pulse 76 04/15/2021 11:35 AM ASSEMBLER FOR PULLER OVER MACHINE Temperature - - Respiratory Rate - - Oxygen Saturation 97% 04/15/2021 11:35 AM ASSEMBLER FOR PULLER OVER MACHINE Inhaled Oxygen Concentration - - Weight 69.6 kg (153 lb 6.4 oz) 04/15/2021 11:35 AM ASSEMBLER FOR PULLER OVER MACHINE Height 157.5 cm (5' 2 ) 04/15/2021 11:35 AM ASSEMBLER FOR PULLER OVER MACHINE Body Mass Index 28.06 04/15/2021 11:35 AM ASSEMBLER FOR PULLER OVER MACHINE documented in this encounter Patient Instructions * Patient Instructions* Cathleen Walker MD - 04/15/2021 11:45 AM ASSEMBLER FOR PULLER OVER MACHINE Stop diltiazem Stop spironolactone Return in 6 months MBLER FOR PULLER OVER MACHINE documented in this encounter Progress Notes * Cathleen Walker MD - 04/15/2021 11:45 AM CST Images from the original note were not included. Cardiovascular Division Provider: Cathleen Walker MD Primary care Physician Ryann Galdamez, RACHID [address] [place] [address] Patient Name: Prema Pearce Date of : [...] stenosis, moderate 4. Moderate CAD on 08/2020 [facility] 5. Submassive pulmonary embolism 05/2019, provoked, occurred 1 week after left distal femoral replacement for an open fracture 6. Right lower extremity DVT 05/2019 7. Hypertension 8. Diabetes mellitus type II, insulin dependent 9. Obstructive sleep apnea, on CPAP 10. Hypothyroidism 11. Left adrenal nodule Prema Pearce is a 81 y.o. female who presents today at the [facility] in [place] for follow-up on her exertional dyspnea. Still struggling with her 's passing in September 2020. Has lost from 200+ lbs to 160 today sinceJuly 2020. Has no appetite or interested in appetite. Has been working with her PCP and is contemplative to working with a mental health provider for her depression Since her last visit 11/16/2020, Was started on [place] for elevate BPs. Today BP 98/77 on [...] There is no significant obstruction of the [place] coronary arteries. There is, however, significant tortuosity [...] any separately reportable services. Cathleen Walker MD MBLER FOR PULLER OVER MACHINE documented in this encounter Plan of [...] fraction (CMS/HCC) (HCC) Coronary artery disease involving [place] coronary artery of [place] heart with angina pectoris (HCC) documented in [...] documented as of this encounter Care Teams Network Operations Center Engineer Relationship Specialty Start Date End Date Ryann Galdamez PA PCP - General Subscription Agent 04/02/21 01/22/22 documented as of this encounter
--- OUTSIDE RECORDS SUMMARY | 2024-03-25 11:01 | XMS_ITS | Encounter Summary ---
Author Organization [facility] Healthcare Address [address] [place] [address] Care Team Providers Care Assistant Nurse Manager Name Role Phone Ryann Galdamez Primary Care Provider +1- [phone] Encounter Details Date Type Department Care Team (Late st Contact Info) Description 05/25/2021 8:51 PM ANIMAL HUSBANDRY TECHNICIAN Anesthesia Event [facility] Neuro Interventional Radiology [address] [place] [address] Chacorta Hylton MD [address] [facility] [id number] [place] [address] Patricio White MD [address] [place] [address] Anesthesia Record Procedure Summary Procedure Name Responsible [...] by Sukhjinder Gomez RN 08/07/23 0700 by Girs Buck RN RETIRED Negative Pressure Wound Therapy [...] file Legal Sex Female 4:20 AM ANIMAL HUSBANDRY TECHNICIAN Gender Identity Not on file Sexual Orientation Not on file documented as of this encounter OR Notes * Anesthesia Postprocedure Evaluation - Vikas Paredes MD - 05/25/2021 10:20 PM CST Patient: Prema Pearce Procedure Summary Date: 05/25/21 Room / Location: [facility] Neuro Interventional Radiology Anesthesia Start: 2050 Anesthesia [...] Chacorta Hylton MD at 05/25/2021 10:31 PM ANIMAL HUSBANDRY TECHNICIAN AL HUSBANDRY TECHNICIAN AL HUSBANDRY TECHNICIAN * Anesthesia Preprocedure Evaluation - Chacorta Hylton [...] (HCC) ??? Hypokalemia ??? Insomnia, unspecified ??? shelter (current) use of insulin (HCC) ??? Major [...] Medication protocol when under care of a RELOCATION MANAGER Planned anesthesia: General Team communication plan: [...] and agree to proceed. All questions answered. AL HUSBANDRY TECHNICIAN * Anesthesia Procedure Notes - Patricio White [...] occlusive dressing applied Number of attempts: 1 AL HUSBANDRY TECHNICIAN * Anesthesia Procedure Notes - Patricio White [...] of attempts: 1 Planned trial extubation: yes AL HUSBANDRY TECHNICIAN documented in this encounter Plan of Treatment Not on file documented as of this encounter Procedures Procedure Name Priority Date/Time Associated Diagnosis Comments PERIPHERAL LINE Routine 05/25/2021 9:10 PM ANIMAL HUSBANDRY TECHNICIAN ANESTHESIA INTUBATION Routine 05/25/2021 9:09 PM ANIMAL HUSBANDRY TECHNICIAN documented in this encounter Results * Peripheral IV Catheter (05/25/2021 9:10 PM ANIMAL HUSBANDRY TECHNICIAN) Narrative Patricio White MD - 05/25/2021 9:10 PM ANIMAL HUSBANDRY TECHNICIAN Patricio White MD ? 05/25/2021 ??9:10 PM [...] Re sult * Airway (05/25/2021 9:09 PM ANIMAL HUSBANDRY TECHNICIAN) Narrative Patricio White MD - 05/25/2021 9:09 PM ANIMAL HUSBANDRY TECHNICIAN Patricio White MD ? 05/25/2021 ??9:10 PM [...] 2056, Anesthesia Intra-op Given 05/25/2021 9:54 PM ANIMAL HUSBANDRY TECHNICIAN 50 mcg Given 05/25/2021 8:57 PM ANIMAL HUSBANDRY TECHNICIAN 50 mcg lidocaine (cardiac) (XYLOCAINE) preservative free injection intravenous, As needed, Starting on 05/25/21 at 2056, Anesthesia Intra-op, Indications: Ventricular ArrhythmiasIndications:Ventricular Arrhythmias Given 05/25/2021 8:57 PM ANIMAL HUSBANDRY TECHNICIAN 50 mg phenylephrine (LAZARO-SYNEPHRINE) 1 mg/10 mL (100 mcg/mL) in sodium chloride 0.9% (premix) intravenous, As needed, Starting on 05/25/21 at 2111, Anesthesia Intra-op Given 05/25/2021 9:32 PM ANIMAL HUSBANDRY TECHNICIAN 100 mcg Given 05/25/2021 9:12 PM ANIMAL HUSBANDRY TECHNICIAN 100 mcg phenylephrine (LAZARO-SYNEPHRINE) 5 mg/50 mL (100 mcg/mL) in sodium chloride 0.9% (premix) intravenous, Continuous PRN, Starting on 05/25/21 at 2056, Anesthesia Intra-op Rate/Dose Change 05/25/2021 9:51 PM ANIMAL HUSBANDRY TECHNICIAN 1.2 mcg/kg/min 56.016 mL/hr Rate/Dose Change 05/25/2021 9:45 PM ANIMAL HUSBANDRY TECHNICIAN 1.3 mcg/kg/min 60. 684 mL/hr Rate/Dose Change 05/25/2021 9:39 PM ANIMAL HUSBANDRY TECHNICIAN 1.4 mcg/kg/min 65. 352 mL/hr propofoL (DIPRIVAN) 10 mg/mL IV intravenous, As needed, Starting on 05/25/21 at 2056, Anesthesia Intra-op Given 05/25/2021 8:57 PM ANIMAL HUSBANDRY TECHNICIAN 120 mg rocuronium (ZEMURON) injection intravenous, As needed, Starting on 05/25/21 at 2056, Anesthesia Intra-op Given 05/25/2021 9:51 PM ANIMAL HUSBANDRY TECHNICIAN 10 mg Given 05/25/2021 9:13 PM ANIMAL HUSBANDRY TECHNICIAN 10 mg Given 05/25/2021 8:57 PM ANIMAL HUSBANDRY TECHNICIAN 10 mg succinylcholine (ANECTINE) injection intravenous, As needed, Starting on 05/25/21 at 2056, Anesthesia Intra-op Given 05/25/2021 8:57 PM ANIMAL HUSBANDRY TECHNICIAN 80 mg documented in this encounter Care Teams Assistant Nurse Manager Relationship Specialty Start Date End Date Ryann Galdamez PA PCP - General Courtesy Booth Cashier 04/02/21 01/22/22 documented as of this encounter
--- OUTSIDE RECORDS SUMMARY | 2024-03-25 11:01 | XMS_ITS | Encounter Summary ---
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) (Primary Dx); [...] on file Legal Sex Female 4:20 AM SPRAYING MACHINE OPERATOR Gender Identity Not on file Sexual Orientation Not on file documented as of this encounter Plan of Treatment Not on file documented as of this encounter Visit Diagnoses Diagnosis 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
--- OUTSIDE RECORDS SUMMARY | 2024-03-25 11:01 | XMS_ITS | Encounter Summary ---
Author Organization [facility] Medical Group Address [address] [place] [address] Care Team Providers Care Cad Administrator Name Role Phone Ryann Galdamez Primary Care Provider +1- [phone] Ryann Galdamez Primary Care Provider +1- [phone] Chris Mendes MD Unavailable [phone] Keli Orozco RN Unavailable Unavailable Alysa Newton RN Unavailable [phone] Cuba Larsen MD Primary Care Provider [phone] Encounter Details Date Type Department Care Team (Late st Contact Info) Description 03/21/2021 Orders Only [facility] Information Management [address] [place] [address] Scanning, Provider Social History Tobacco Use Types [...] file Legal Sex Female 4:20 AM MACHINE CANDLE MOLDER Gender Identity Not on file Sexual Orientation [...] filedocumented in this encounter Care Teams Cad Administrator Relationship Specialty Start Date End Date Ryann Galdamez PA PCP - General Senior Property Accountant 07/16/20 04/01/21 Ryann Galdamez PA PCP - General Senior Property Accountant 04/02/21 01/22/22 Cuba Larsen MD [address] [facility] [address] [place] [address] PCP - General Family Medicine 01/23/22 Chris Mendes MD Referring Physician Cardiology 12/23/21 Keli Orozco, sign erector and repairerRestaurant Operations Manager Cardiology 12/23/21 04/15/23 Alysa Newton, RN [address] [facility] [address] [place] [address] Restaurant Operations Manager Cardiology 12/23/21 documented as of this encounter
--- OUTSIDE RECORDS SUMMARY | 2024-03-25 11:01 | XMS_ITS | Encounter Summary ---
Author Organization [facility] Address [address] [place] [address] Phone Care Team Providers Care Digital Producer Name Role Phone Ryann Galdamez Primary Care Provider [phone]- [phone] Reason for Visit * Reason Onset Date Comments Eliquis rec's for Lithotripsy 05/09/2021 Encounter Details Date Type Department Care Team (Late st Contact Info) Description 05/09/2021 Telephone [facility] Cardiology [address] [facility] 8th [place] [address] [place] [address] Cathleen Walker MD [address] [place] [address] [address] [place] [address] Eliquis rec's for Lithotripsy Social [...] on file Legal Sex Female 4:20 AM BARGE LOADER Gender Identity Not on file Sexual Orientation Not on file documented as of this encounter Miscellaneous Notes * Telephone Encounter - Daisy Hansen - 05/09/2021 2:03 PM CST Pt notified. Verb understanding. She said she really appreciated the care and kindness Dr. Walker has given her and will miss her very much when she is gone. E LOADER * Telephone Encounter - Cathleen Walker MD - 05/09/2021 1:50 PM CST I'm sorry to hear about this. This is so sad. She will need to hold her eliquis 48 hours prior, resume when okay per urology E LOADER * Telephone Encounter - Daisy Hansen - [...] son to COVID pneumonia. Emotional support given. E LOADER * Telephone Encounter - Lili Zelaya - 05/09/2021 12:40 PM CST Aaron Pt calling to speak with a nurse about a procedure she is supposed to have, she is not scheduled for it yet but pt is wanting to know how long she should be off her eliquis E LOADER documented in this encounter Plan of Treatment Not on file documented as of this encounter Visit Diagnoses Not on filedocumented in this encounter Care Teams Digital Producer Relationship Specialty Start Date End Date Ryann Galdamez PA PCP - General Compressor Station Engineer Chief 04/02/21 01/22/22 documented as of this encounter
--- OUTSIDE RECORDS SUMMARY | 2024-03-25 11:01 | XMS_ITS | Encounter Summary ---
Author Organization [facility] Address [address] [place] [address] Phone Care Team Providers Care Extrusion Die Corrector Name Role Phone Ryann Galdamez Primary Care Provider +1- [phone] Encounter Details Date Type Department Care Team (Late st Contact Info) Description 05/14/2021 Telephone [facility] Cardiology [address] [facility] Advanced Medicine 8th [place] [address] [place] [address] Cathleen Walker MD [address] [facility] [address] [place] [address] Social History Tobacco Use Types [...] file Legal Sex Female 4:20 AM COMPUTER SYSTEMS SOFTWARE ARCHITECT Gender Identity Not on file Sexual Orientation Not on file documented as of this encounter Miscellaneous Notes * Telephone Encounter - Lina Juarez - 05/14/2021 3:21 PM COMPUTER SYSTEMS SOFTWARE ARCHITECT Sent records as requested. UTER SYSTEMS SOFTWARE ARCHITECT * Telephone Encounter - Alise Anderson - 05/14/2021 12:42 PM CST ABE REQ OFFICE NOTE AND ANY TESTING. PT HAVING SURGERY ON 05/21. FAX [phone] UTER SYSTEMS SOFTWARE ARCHITECT documented in this encounter Plan of Treatment Not on file documented as of this encounter Visit Diagnoses Not on filedocumented in this encounter Care Teams Extrusion Die Corrector Relationship Specialty Start Date End Date Ryann Galdamez PA PCP - General Powerhouse Laborer 04/02/21 01/22/22 documented as of this encounter
--- OUTSIDE RECORDS SUMMARY | 2024-03-25 11:01 | XMS_ITS | Encounter Summary ---
Author Organization [facility] Medical Group Address [address] [place] [address] Care Team Providers Care Chief Executive Name Role Phone Ryann Galdamez Primary Care Provider [phone]- [phone] Ryann Galdamez Primary Care Provider +1- [phone] Reason for Visit * Reason Onset Date Comments CT Chest 04/01/2021 Encounter Details Date Type Department Care Team (Late st Contact Info) Description 04/01/2021 Telephone [facility] Family Medicine [address] [place] [address] Ryann Galdamez PA [address] [place] [address] CT Chest Social History Tobacco [...] on file Legal Sex Female 4:20 AM BUNDLE WRAPPER Gender Identity Not on file Sexual Orientation [...] Ryann Galdamez PA - 04/02/2021 3:15 PM BUNDLE WRAPPER New order placed. LE WRAPPER * Telephone Encounter - Raiza Desir MA - 04/01/2021 8:54 AM CST [facility] called regarding CT Chest that was scheduled on 04/04/2021. They wanted order changedto CT Chest W/WO contrast. Patient is scheduled to see Dr. Jara at [facility] Urology the same day and get a CT AB/ Pelvis. The CT Chest was cancelled and taken out of system. A new order will need to be placed if needed. LE WRAPPER documented in this encounter Plan of Treatment Not on file documented as of this encounter Visit Diagnoses Diagnosis Weight loss- Primary Loss of weight Sleep disturbance Unspecified sleep disturbance documented in this encounter Care Teams Chief Executive Relationship Specialty Start Date End Date Ryann Galdamez PA PCP - General Forestry Tree Pruner 07/16/20 04/01/21 Ryann Galdamez PA PCP - General Forestry Tree Pruner 04/02/21 01/22/22 documented as of this encounter
--- OUTSIDE RECORDS SUMMARY | 2024-03-25 11:01 | XMS_ITS | Encounter Summary ---
Author Organization [facility] Address [address] [place] [address] Care Team Providers Care Sueding Machine Operator Name Role Phone Ryann Galdamez Primary Care Provider +1- [phone] Encounter Details Date Type Department Care Team (Late st Contact Info) Description 03/27/2021 Orders Only [facility] Family Medicine [address] [place] [address] Ryann Galdamez PA [address] [place] [address] Social History Tobacco Use Types [...] on file Legal Sex Female 4:20 AM GROUP FITNESS INSTRUCTOR Gender Identity Not on file Sexual Orientation Not on file documented as of this encounter Plan of Treatment Not on file documented as of this encounter Visit Diagnoses Not on filedocumented in this encounter Care Teams Sueding Machine Operator Relationship Specialty Start Date End Date Ryann Galdamez PA PCP - General Clinical Assistant 07/16/20 04/01/21 documented as of this encounter
--- OUTSIDE RECORDS SUMMARY | 2024-03-25 11:01 | XMS_ITS | Encounter Summary ---
Author Organization [facility] Address [address] [place] [address] Care Team Providers Care Principal Cloud Architect Name Role Phone Ryann Galdamez Primary Care Provider +1- [phone] Encounter Details Date Type Department Care Team (Late st Contact Info) Description 03/25/2021 Telephone [facility] Family Medicine [address] [place] [address] Ryann Galdamez PA [facility] [place] [address] Social History Tobacco Use Types [...] on file Legal Sex Female 4:20 AM QUILL LAYER Gender Identity Not on file Sexual Orientation Not on file documented as of this encounter Miscellaneous Notes * Telephone Encounter - Raiza Desir MA - 03/28/2021 3:00 PM CST [facility] referral is in chart. L LAYER * Telephone Encounter - Karoline Cooper LPN - 03/25/2021 5:24 PM QUILL LAYER Referral needed --- Doctor: Location: NPI: Dx: Phone: Fax: L LAYER * Telephone Encounter - Ryann Galdamez PA - 03/25/2021 8:27 AM QUILL LAYER I called [facility] - patient has appt with the [place] [facility] on 03/27/21 at 930am. I called patient and notified her of this - she notes symptoms are improving but will plan on keeping the appt. Please send [facility] referral. L LAYER documented in this encounter Plan of Treatment Not on file documented as of this encounter Visit Diagnoses Not on filedocumented in this encounter Care Teams Principal Cloud Architect Relationship Specialty Start Date End Date Ryann Galdamez PA PCP - General Lubrication Supervisor 07/16/20 04/01/21 documented as of this encounter
--- OUTSIDE RECORDS SUMMARY | 2024-03-25 11:01 | XMS_ITS | Encounter Summary ---
Author Organization [facility] Address [address] [place] [address] Care Team Providers Care Regulator Inspector Name Role Phone Ryann Galdamez Primary Care Provider +1- [phone] Encounter Details Date Type Department Care Team (Late st Contact Info) Description 03/21/2021 Orders Only [facility] Family Medicine [address] [place] [address] Ryann Galdamez PA [address] [place] [address] Acute cystitis with hematuria; Acute [...] file Legal Sex Female 4:20 AM OCCUPATIONAL THERAPY ASSIST Gender Identity Not on file Sexual Orientation [...] nephrolithiasis documented in this encounter Care Teams Regulator Inspector Relationship Specialty Start Date End Date Ryann Galdamez PA PCP - General Peoplesoft Programmer 07/16/20 04/01/21 documented as of this encounter
--- OUTSIDE RECORDS SUMMARY | 2024-03-25 11:01 | XMS_ITS | Encounter Summary ---
Author Organization [facility] Healthcare Address [address] [place] [address] Care Team Providers Care Vfx Artist Name Role Phone Ryann Galdamez Primary Care Provider [phone] Reason for Referral * Consultation (Routine) - Closed Specialty Diagnoses / Procedures Referred By Indra muñoz Referred To Contact Neurology Diagnoses Cerebrovascular accident (CVA), unspecified mechanism (HCC) David Mitchell MD [address] [facility] [address] [place] [address] Phone: tel: fax: [facility] Stroke [address] [facility] [address] [place] [address] Phone: tel: fax: Referral ID Status Reason Start Date Expiration Date V isits Requested Visits Authorized [id number] Closed Specialty Services Required 05/29/2021 06/28/2022 1 1 Question Answer Please select the performing region: [facility] (All Locations) [167] # of visits: [...] (Latest Contact Info) Description 05/25/2021 7:50 PM AGENCY LEGAL COUNSEL - 05/29/2021 7:34 PM CDT Hospital Encounter [facility] [address] [facility] [place] [address] Kunal Dalton MD [address] [place] [address] David Mitchell MD [address] [place] [address] Kylah Lilly MD [address] [place] [address] Cerebrovascular accident (CVA), unspecified mechanism (HCC) (Primary [...] on file Legal Sex Female 4:20 AM AGENCY LEGAL COUNSEL Gender Identity Not on file Sexual Orientation [...] (164 lb 0.4 oz) 05/25/2021 11:00 PM AGENCY LEGAL COUNSEL Height 157.5 cm (5' 2 ) 05/25/2021 7:53 PM AGENCY LEGAL COUNSEL Body Mass Index 30 05/25/2021 7:53 PM AGENCY LEGAL COUNSEL documented in this encounter Discharge Diagnoses Diagnosis Cerebral infarction due to embolism of right middle cerebral artery (HCC) - CEREBRAL INFARCTION DUE TO EMBOLISM OF RIGHT MIDDLE CEREBRAL ARTERY Chronic diastolic (congestive) heart failure ([facility]) - CHRONIC DIASTOLIC (CONGESTIVE) HEART FAILURE Hypertensive heart disease with heart failure ([facility]) ([facility]) - HYPERTENSIVE HEART DISEASE WITH HEART FAILURE Unspecified hypertensive heart disease with heart failure Hypocalcemia - HYPOCALCEMIA Homonymous bilateral field defects, left side - HOMONYMOUS BILATERAL FIELD DEFECTS, LEFT SIDE Type 2 diabetes mellitus without complications ([facility]) ([facility]) - TYPE 2 DIABETES MELLITUS WITHOUT COMPLICATIONS [...] APNEA (ADULT) (PEDIATRIC) Atherosclerotic heart disease of [place] coronary artery without angina pectoris - ATHEROSCLEROTIC HEART DISEASE OF [place] CORONARY ARTERY WITHOUT ANGINA PECTORIS Old [...] TO OTHER DRUGS, MEDICAMENTS AND BIOLOGICAL SUBSTANCES nursing home (current) use of anticoagulants - SENIOR CARE (CURRENT) USE OF ANTICOAGULANTS Long-term (current) use of anticoagulants nursing home (current) use of aspirin - MEDICAL RECORDS SUPERVISOR (CURRENT) USE OF ASPIRIN medical terminologist (current) use of oral hypoglycemic drugs - SENIOR CARE (CURRENT) USE OF ORAL HYPOGLYCEMIC DRUGS Hormone replacement therapy - HORMONE REPLACEMENT THERAPY Other long wall mining machine tender (current) drug therapy - OTHER SENIOR CARE (CURRENT) DRUG THERAPY Personal history of pulmonary [...] Care Physician at Discharge: Ryann Galdamez PA [phone] Admission Date: 05/25/2021 Discharge Date: 05/29/2021 Admission Location: [facility] Problems/Diagnoses: Active Problems: No Active Problems: There [...] off AC. Repeat hCT 05/28 The current [place] Stroke Association guidelines recommend long-term treatment with a high-intensity statin even in patient's with LDL level <100, if tolerated. (The SPARCL trial, Huisa et al. 2010, showed that statin treatment should not be titrated to LDL level.) SMART Consult was performed and PT/OT recommended discharge to home with home health PT/OT. The patient will [facility] up in [facility]. [address] [address] Risk factors were optimized on discharge. Patient [...] wasstopped in conjunction with discussion with outpatient tick eradicator #L ankle fracture: Xrays performed during this [...] for cardiology care. We discussed with her tick eradicator who is okay with stopping aspirin given [...] for ankle fracture 3. Follow up with tick eradicator and PCP as scheduled Test Results Pending [...] Toes downgoing bilaterally. COORDINATION: No dysmetria on eggivl-zjet-mllaal bilaterally. Mild intention tremor bilaterally GAIT: Did not assess Discharge Disposition: Code Status at Discharge: Full code Discharge Instructions: You were hospitalized at [facility] for a new stroke. MEDICATION CHANGES 1. [...] NEXT 7 DAYS, please call them at [phone] to make an appointment. You may also call them with any questions that arise in the meantime. 2. Follow up with orthopedics for your ankle fracture 06/13/21 w/ Dr. Vora at [facility] 3. Follow up with your primary doctor and tick eradicator Call Your Doctor If: CALL [phone] IF YOU HAVE NEW SIGNS OF A [...] Information for Follow-ups Ryann Galdamez PA Specialty: Agency Manager, Physician Sponge Diver, Pediatrics, Family Medicine Relationship: PCP - General [address] [place] [address] Next Steps: Schedule an appointment as soon as possible for a visit in 1 week(s) Instructions: We attempted to schedule an appointment, please call them to arrange. Thank you [facility] (All Locations) Next Steps: Follow up Comments: Please schedule Prema Pearce for the next available new patient appointment with one of the following providers Stroke RENETTA Mitchell or next available provider. I evaluated Prema Torres in the inpatient neurology service and have approved this visit. Questions: Please select the performing region: [facility] (All Locations) # of visits: 1 [...] 2:30 PM CDT You were hospitalized at [facility] for a new stroke. MEDICATION CHANGES 1. [...] NEXT 7 DAYS, please call them at [phone] to make an appointment. You may also call them with any questions that arise in the meantime. 2. Follow up with orthopedics for your ankle fracture 06/13/21 w/ Dr. Vora at [facility] 3. Follow up with your primary doctor and tick eradicator Call Your Doctor If: CALL [phone] IF YOU HAVE NEW SIGNS OF A [...] Duval RN - 05/29/2021 5:52 PM CDT [facility] - PHYSICAL & OCCUPATIONAL THERAPY You should [...] RN - 05/29/2021 5:58 PM CDT 05/28/21 1608 Discharge Summary Discharge Disposition Home with Home Health (PT/OT/RN) Equipment/Provider Needs Home Provider Services Needs Identified Home Care Agency Information Home Care Agency Name [facility] Home Care Agency Contact Spoken to Lucien bowers will accept Home Care Agency Order Faxed to [phone] Discharge Additional Assistance Does the patient need discharge transport arranged? No Patient to d/c to home today. Faxed [place] Summary, orders to number above. Patient has [...] treatment team and contact the PT or AERONAUTICAL INSPECTOR currently assigned to this patient. If a physical therapy clinician is not assigned to this patient, please call [phone]. Multi-Disciplinary Problems (from Physical Therapy) Active Problems [...] not assigned to this patient, please call [phone]. 05/29/21 0803 General Session Type Treatment (discharge) [...] within her insurance. Pt's RN, CM, and HOLE FILLER notified. Daily Activity - 6 Clicks Putting [...] Primary Care Physician: Ryann Galdamez PA Room: [id number] Subjective SUBJECTIVE Prema Pearce is a 81 [...] Toes downgoing bilaterally. COORDINATION: No dysmetria on ckndbw-ysao-mdmtfq bilaterally. Mild intention tremor bilaterally GAIT: Did [...] MD PhD Neurology PGY2 Stroke phone on-call: [phone] Cosigned by David Mitchell MD at 05/29/2021 4:59 PM CDT Associated attestation - David Mitchell MD - 05/29/2021 4:59 PM CDT I have seen and examined the patient on 05/29/21. I agree with the findings and plan of care as discussed with the resident/fellow.. * Tu Frankel - 05/28/2021 12:59 PM CDT [facility] 05.28.21 1158 05/28/21 1200 Time Spent Start Time 1145 [...] home. Prior Function Prior Function Level of [place]: Independent functional transfers, Independent with ambulation Lives With: Alone Receives Help From: Family, Neighbor (director agency & strategic partnerships) Fall within the last 6 months: Yes [...] None Prior Function Prior Function Level of [place]: Independent with ADLs, Independent with ambulation, Independent with homemaking with ambulation Lives With: Alone Receives Help From: Family (filling station attendant assist) Driving: No Fall within the last [...] name and address after me: Miguel Carrasquillo [address] [place] [address] Without looking at the clock, tell me what time it is: Correct-within one hour Count aloud backwards from 20-1: 0 Errors Say the months of the year backwards in reverse order: 0 Errors Repeat the name and address I asked you to remember: 2 Errors Short Blessed Total Score: 4 Short Blessed Comments: WFL Trails A & B ([place] Making Test) Patient completed Trails B Verbal [...] Primary Care Physician: Ryann Galdamez PA Room: [id number] Subjective SUBJECTIVE Prema Pearce is a 81 [...] her granddaughter who is an EMT for [employer] came over to evaluate her. They also [...] femur Social History: Patient lives alone in [place], [place]. Independent all ADLs/IADLs, no assitive devices. . Lost son to COVID complications in April 2021. Never smoker. Social alcohol use (average 1x/month). No recreational drugs Family History: 1. Sudden cardiac - mother 2. Heart failure - mother 3. MT - father 4. Diabetes - father, son [...] Toes downgoing bilaterally. COORDINATION: No dysmetria on wjdest-hmmt-ibuqye bilaterally. Mild intention tremor bilaterally GAIT: Did [...] MD PhD Neurology PGY2 Stroke phone on-call: [phone] Cosigned by David Mitchell MD at 05/28/2021 [...] Other (Specify) Name: Tami Culp (Daughter in) [phone] (05/26/21 1211) Admission Source: non health care facility Impression: 81 year old female admitted for stroke Plan Includes: await PT/OT recommendations Primary Source of Transportation: Does the patient need discharge transport arranged?: No (05/27/211518) Health Insurance Coverage: [employer] Prescription Coverage: yes Pharmacy: [id number] [id number] Primary Care Provider: Ryann Galdamez PA Prior to Admission: Primary Caregiver: Self Support System: Children Support system contact info (name, phone, availablity): annita Culp [phone] Home Care Services: No Durable Medical Equipment: [...] Collaboration with patient, MD, direct care nurse, Facility Mechanic, Nurse Coordinator and other members of the health care team to assure needed interventions completed. 2. Return patient to optimal level of self-care post discharge. 3. Skin Diver will follow for Discharge Planning - interventions [...] for 06/13/21 w/ Dr. Vora at [facility]. Please page or call with questions. Jorge Kidd MD Department of Orthopaedic Surgery, PGY-2 [facility] [place] Please use [email or web address] to page/call the appropriate Orthopaedic Surgery Team/Resident if questions or concerns * Tu Frankel - 05/27/2021 12:56 PM CDT Spiritual Care Note Chaplain Tu Frankel M.Div, [facility] 05.27.21 1256 05/27/21 1200 Time Spent Start Time 1220 [...] the appropriate orthopaedic surgery team, please use [email or web address] to page resident directly. ??? If questions arise and the appropriate resident can't be reached or you are calling overnight, please contact [phone] ([place]- 7:30 PM - 6:30 AM - Floor Resident) or [phone] (24 hours/day - Consult Resident) * Katie Terry RN - 05/26/2021 12:12 PM CDT CM Initial Assessment Interview Note Information Obtained From: Patient (05/26/211210) Admission Source: home Impression: symptoms of stroke Plan Includes: Neuro team work up and plan ongoing Primary Source of Transportation: car Health Insurance Coverage: [facility] Prescription Coverage: yes Pharmacy: [facility] Primary Care Provider: Ryann Galdamez PA Prior to Admission: Primary Caregiver: Self Support System: Children Support system contact info (name, phone, availablity): daughter Tami Culp [phone] Home Care Services: No Durable Medical Equipment: [...] Collaboration with patient, MD, direct care nurse, Facility Mechanic, Nurse Coordinator and other members of the health care team to assure needed interventions completed. 2. Return patient to optimal level of self-care post discharge. 3. Skin Diver will follow for Discharge Planning - interventions [...] with family at bedside. * Shaylee Martines, HOLE FILLER - 05/26/2021 7:09 AM CDT Neuro Critical [...] 100-120 off home coreg Passed swallow w/ TOOLING MANAGER this AM. Started ASA Vitals 24hr Temp [...] 2/2 holding of Eliquis x 1 week AERONAUTICAL INSPECTOR for elective lithotripsy. -- SBP <175, DBP <100 -- Q1h NC -- start DVT ppx -- start ASA 325 mg daily -- continue home Crestor -- Discuss timeline of re-starting Eliquis w/ stroke team -- Hgb A1c 6.2, LDL 15 -- holding off on TTE as etiology of AIS is likely cardioembolic -- SMART consult, PT/OT/TOOLING MANAGER # Anxiety Multiple recent life stressors, currently [...] fluids: D5NS @ 75 /hr Last BM: AERONAUTICAL INSPECTOR Glucose range: 108-189, 10 units SSI # Nutrition/Dysphagia iso stroke -- passed TOOLING MANAGER for regular diet -- dc IVF when [...] plan with the ICU team and other medical/document management consultant staff as documented above. Kylah Lilly M.D. Attending Physician, Neurocritical Irrigation SpecialistClerical Dentist Assistant, Department of Neurology documented in this encounter [...] femur ?? Social History:??Patient lives alone in [place], [place]. Independent all ADLs/IADLs. . Lost son to COVID complications in April 2021. Never smoker. Social alcohol use (average 1x/month). ?? Family History:?? 1. Sudden cardiac - mother 2. Heart failure - mother 3. MT - father 4. Diabetes - father, son [...] 2/2 holding of Eliquis x 1 week AERONAUTICAL INSPECTOR for elective lithotripsy. -- SBP <175, DBP <100 -- Q1h NC -- Re-start DVT ppx in 24-48h -- Hold ASA, continue home Crestor -- Discuss timeline of re-starting Eliquis -- F/u repeat Hgb A1c, lipid panel -- SMART consult -- PT/OT/TOOLING MANAGER # Anxiety Multiple recent life stressors, currently [...] iso stroke, sedation for MT [facility], now s/p extubation. -- 97-100% on 6L via NC -- wean O2 as tolerated -- IS q1h # AYAD on CPAP -- continue nightly NPPV RENAL Meds: ??? Calcium carbonate 1 g BID # Hypocalcemia -- continue home calcium carbonate -- [facility] electrolyte replacement protocol -- daily BMP # Hypomagnesemia Mg 1.8 on arrival, s/p 2g IV Mg sulfate -- [facility] electrolyte replacement protocol -- daily Mg [...] fluids: D5NS @ 75 /hr Last BM: AERONAUTICAL INSPECTOR # Dysphagia iso stroke Failed bedside swallow evaluation. -- IVF while NPO -- TOOLING MANAGER consult # Nutrition -- dextrose containing fluids while NPO -- f/u TOOLING MANAGER recs -- continue bowel regimen # T2DM [...] vocal quality following all trials. No further TOOLING MANAGER in dicated for swallowing at this time. [...] National Outcomes Measurement System: Level 7 Plan TOOLING MANAGER Recommendation (Add'l Services): No further TOOLING MANAGER indicated(for swallowing) Further Assessment/Follow up Indicated: Next Visit Plan:No further ST warranted(for swallowing) Additional Referrals: None Please reference care plan for treatment goals, if indicated. Discharge Summary Statement If this is the last swallow therapy visit, this serves as the discharge summary. Cosigned by Yoly Cruz, TOOLING MANAGER at 05/26/2021 12:47 PM CDT documented in this encounter Consult Notes * Racquel Stevenson RN - 05/27/2021 3:28 PM CDTAssociated Order(s): IT COMPLIANCE ANALYST CONSULT Smart Note for Stroke Patient presents [...] includes:heparinoid To contact the SMART nurse call [phone] twidox cards left with education packet for additional [...] Sounds (All Quadrants): Active Last BM Date: (AERONAUTICAL INSPECTOR) GI Symptoms: None Last BM Date: (AERONAUTICAL INSPECTOR) Donte Scale Score: 18 Skin Integrity: Surgical incision Dietary Orders (From admission, onward) Start Ordered 05/28/21 0700 Oral Nutrition Supplements Select Supplement: Ensure High Protein - Lennie With Breakfast Question: Select Supplement: Answer: Ensure High Protein - Lennie 05/27/21 1421 05/26/21 0933 Adult Diet Regular, Restricted; Consistent Carbohydrate Diet effective now Question Answer Comment ([facility]) Diet type Regular ([facility]) Diet type Restricted Diabetic: Consistent [...] Edited by: Dick Khanna MD at 05/26/2021 3085 Location: left lower extremity Quality: aching pain Duration: hours Severity: moderate Past Medical History: Diagnosis Date ??? Adrenal nodule (CMS/HCC) (HCC) ??? Anxiety ??? Aortic stenosis, moderate ??? Atrial fibrillation (CMS/HCC) ([facility]) ??? Cardiomyopathy (HCC) ??? Diabetes mellitus (HCC) ??? Dyslipidemia ??? GERD (gastroesophageal reflux disease) ??? Heart murmur ??? HFrEF (heart failure with reduced ejection fraction) (CMS/HCC) ([facility]) ??? Hyperlipidemia ??? Hypertension ??? Hypothyroidism ??? Insomnia ??? Mitral regurgitation ??? NSTEMI (non-ST elevated myocardial infarction) (CMS/HCC) ([facility]) ??? Obesity ??? AYAD on CPAP ??? [...] orthopaedic team. Recommend plan for follow-up at [facility] (call [phone] to confirm appointment) in 3- 4 week(s). Dick Khanna MD Orthopaedic Surgery Resident [phone] ?? Normal business hours: If you know the resident's name on the appropriate orthopaedic surgery team, please use the Directory Search at [email or web address] to page resident directly. ?? If questions arise and the appropriate resident can't be reached or you are calling overnight, please contact [phone] ( 7:30 PM - 6:30 AM - Floor Resident) or [phone] (24 hours/day- Consult Resident) Cosigned by Moses [...] drift Limb Ataxia (7.): Absent Sensory (8.): Anwn-ke-afatfuqb sensory loss, patient feels pinprick is less sharp or is dull on theaffected side, or there is a loss of superficial pain with pinprick, but patient is aware of being touched Best Language (9.): No aphasia Dysarthria (10.): Plni-jo-ohwbekky dysarthria, patient slurs at least some words [...] given Reason for tPA delay (>30 mins enpg-is-iwzwex, if applicable): N/A, patient did not receive [...] to NNICU Case discussed with neurology chief java consultant The HASTE team will sign off due to patient admission to the stroke service. For acute neurologic change and repeat stroke assessment, please activate the tPA pager at [phone]. For a non-emergent questions please call the inpatient stroke phone at [phone]. Meghan Castaneda MD 05/25/2021, 10:11 PM Subjective [...] noted in the History of Presenting Illness??(HPI). CY LEGAL COUNSEL documented in this encounter ED Notes * [...] Pt A&Ox4. VSS, slightly hypertensive upon arrival. CY LEGAL COUNSEL * Joseph Dallas MD - 05/25/2021 7:58 [...] chronic systolic CHF (congestive heart failure) (CMS/HCC) ([facility]) 06/08/2019 ??? Non-ST elevation (NSTEMI) myocardial infarction (CMS/HCC) ([facility]) 06/08/2019 ??? Chronic combined systolic (congestive) and diastolic (congestive) heart failure ([facility]) 06/05/2019 ??? Gastro-esophageal reflux disease without esophagitis 06/05/2019 ??? Generalized anxiety disorder 06/05/2019 ??? Hyperlipidemia, unspecified 06/05/2019 ??? Hypertensive heart disease with heart failure (CMS/HCC) ([facility]) 06/05/2019 ??? Hypokalemia 06/05/2019 ??? Insomnia, unspecified 06/05/2019 ??? nursing home (current) use of insulin ([facility]) 06/05/2019 ??? Major depressive disorder, single episode, unspecified 06/05/2019 ??? Slow transit constipation 06/05/2019 ??? Acute pulmonary embolism with acute cor pulmonale (CMS/HCC) ([facility]) 05/31/2019 ??? Hypothyroidism, unspecified 05/31/2019 ??? Obstructive sleep apnea 05/31/2019 ??? Type 2 diabetes mellitus without complications (CMS/HCC) ([facility]) 05/31/2019 ??? Essential hypertension 05/31/2019 ??? Left femoral fracture 05/31/2019 ??? Atrial fibrillation with RVR (CMS/HCC) ([facility]) 05/30/2019 ??? Presence of left artificial knee joint 05/25/2019 ??? Open fracture of left distal femur (CMS/HCC) ([facility]) 05/21/2019 ??? Closed displaced comminuted fracture of shaft of left femur (CMS/HCC) ([facility]) 05/21/2019 ??? Paroxysmal atrial fibrillation (CMS/HCC) ([facility]) 08/18/2017 ??? Snoring 02/16/2014 ??? Carotid bruit 12/27/2010 Past Medical History: Diagnosis Date ??? Adrenal nodule (CMS/HCC) ([facility]) ??? Anxiety ??? Aortic stenosis, moderate ??? Atrial fibrillation (CMS/HCC) ([facility]) ??? Cardiomyopathy ([facility]) ??? Diabetes mellitus ([facility]) ??? Dyslipidemia ??? GERD (gastroesophageal reflux disease) ??? Heart murmur ??? HFrEF (heart failure with reduced ejection fraction) (CMS/HCC) ([facility]) ??? Hyperlipidemia ??? Hypertension ??? Hypothyroidism ??? Insomnia ??? Mitral regurgitation ??? NSTEMI (non-ST elevated myocardial infarction) (CMS/HCC) ([facility]) ??? Obesity ??? AYAD on CPAP ??? Patellar sleeve fracture of left knee ??? PONV (postoperative nausea and vomiting) ??? Pulmonary embolism ([facility]) ??? Sleep apnea ??? Zenker's diverticulum Past [...] Kunal Dalton MD at 05/25/2021 11:22 PM AGENCY LEGAL COUNSEL CY LEGAL COUNSEL CY LEGAL COUNSEL Associated attestation - Kunal Dalton MD - 05/25/2021 11:22 PM AGENCY LEGAL COUNSEL I have seen and examined the patient on 05/25/2021. I agree with the findings and plan of care as documented in the resident's note. * Sherrell Fine RN - 05/25/2021 7:50 PM CST Bed: [id number] Expected date: Expected time: Means of arrival: Comments: Stroke Sherrell Fine RN 05/25/211949 CY LEGAL COUNSEL documented in this encounter Miscellaneous Notes * [...] ADDITIONAL CLINICAL INFORMATION REQUESTED Based on the [facility] approved criteria for respiratory failure (see below), [...] impression in detail Respiratory Failure References - [employer] Hospitalist Jan 2013 - Coding Clinics: 3rd Q 1987, p 7 and 2nd Q 1989, p.20 - https://www.[facility] [facility].gov/vzxuijmz-nva-wtslshluw/medicare-learning-network-mln/mlnprod ucts/downloads/vrvc-vetleg-jrtqtxz-text-only.pdf Use of terms such as likely, suspected, possible, or probable (associated with a specific diagnosisthat is being evaluated, monitored, or treated as if it exists) are acceptable and can be coded in the inpatient setting when documented at the time of discharge. This documentation will become part of the patient's medical record. Darius Titus MD, CCDS Clinical Senior Business Consultant Email: [email or web address] * Plan of Care - Triny Miller [...] off AC. Repeat hCT 05/28 The current [place] Stroke Association guidelines recommend long-term treatment with a high-intensity statin even in patient's with LDL level <100, if tolerated. (The SPARCL trial, Judi et al. 2010, showed that statin treatment should not be titrated to LDL level.) SMART Consult was performed and PT/OT recommended discharge to home with home health PT/OT. The patient will follow up in [facility]. [facility] Medicine [address] [place] [id number] Risk factors were optimized on discharge. Patient [...] 2 - ?? COORDINATION: No dysmetria on [id number] bilaterally. ?? GAIT: not tested I/O last [...] cardiology care ?? #HTN #HFpEF Managed by tick eradicator on outpatient basis with Coreg 25 mg [...] per PT/OT recs today ?? Eliana Moreira [facility] III Cosigned by Zander Allen MD at [...] - atorvastatin 80 mg daily - SMART, PT/OT/TOOLING MANAGER consults - Tele - Continue Coreg 25 [...] outpatient cardiology care #HTN #HFpEF Managed by tick eradicator on outpatient basis with Coreg 25 mg [...] PT/OT recs today or tomorrow Eliana Moreira [facility] III Cosigned by Zander Allen [...] discharge planning needs arise, please call covering pillowcase turner. Patient admitted with: STROKE Rachel Leach Preschool Director Available from 8a.m.-4:30p.m. For emergency needs from 4:31p.m. - 7:59a.m., please call the director of media For weekend/holiday needs from 8:00a.m. - 4:30p.m., please call the Weekend Skin Diver. * Medical Student - Eliana Moreira - 05/27/2021 2:31 PM CDT Images from the original note were not included. STROKE ADMISSION HISTORY AND PHYSICAL Date: 05/27/21 CARE TEAM Patient: Prema Pearce Primary Care Physician: Ryann Galdamez PA Room: [id number] Attending Physician: @ATTENDING@ Subjective SUBJECTIVE Prema Pearce [...] morning of 05/25. Upon arrival to the [facility] ED, blood pressure 141/112, blood glucose [...] tablet 325 mg 325 mg oral Daily hSaylee Martines NP 325 mg at 05/27/21 0804 [...] Achilles 2 - COORDINATION: No dysmetria on dfrbsd-lljg-kqrcib bilaterally. 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 Kylah Lilly M.D. 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 QUESTIONS? Call [phone] * Plan of Care - Amy So [...] by Cinthia Decker RN Outcome: Progressing Problem: Skin Integrity: [...] Yung Ritchie MD - 05/25/2021 10:12 PM AGENCY LEGAL COUNSEL Endovascular Neurosurgery/Interventional Neuroradiology Brief Post Procedure Note Attending: Yung Ritchie MD Sponge Diver: MD Umu Sedation/Anesthesia: GETA Medications: Heparin 3000U [...] None Condition: Stable Full report to follow. CY LEGAL COUNSEL * ED Procedure Note - Kunal Dalton [...] cardiac monitored bed. Kunal Dalton MD 05/25/212114 CY LEGAL COUNSEL * ED Procedure Note - Kunal Dalton [...] in the ED Kunal Dalton MD 05/25/212043 CY LEGAL COUNSEL documented in this encounter Plan of Treatment [...] GLUCOSE DEVICE Routine 05/26/2021 1 2:49 AM AGENCY LEGAL COUNSEL EXTUBATION Routine 05/25/2021 11:23 PM AGENCY LEGAL COUNSEL TROPONIN I HIGH-SENSITIVITY 2-HOUR Timed 05/25/2021 11:12 PM AGENCY LEGAL COUNSEL EGFR STAT 05/25/2021 11:12 PM AGENCY LEGAL COUNSEL APTT STAT 05/25/2021 11:12 PM AGENCY LEGAL COUNSEL PROTIME-INR STAT 05/25/2021 11:12 PM AGENCY LEGAL COUNSEL CBC WITHOUT DIFFERENTIAL STAT 05/25/2021 11:12 PM AGENCY LEGAL COUNSEL TYPE AND SCREEN STAT 05/25/2021 11:12 PM AGENCY LEGAL COUNSEL PHOSPHORUS STAT 05/25/2021 11:12 PM AGENCY LEGAL COUNSEL MAGNESIUM STAT 05/25/2021 11:12 PM AGENCY LEGAL COUNSEL COMPREHENSIVE METABOLIC PANEL STAT 05/25/2021 11:12 PM AGENCY LEGAL COUNSEL ECG 12-LEAD STAT 05/25/2021 10:33 PM AGENCY LEGAL COUNSEL POCT GLUCOSE DEVICE Routine 05/25/2021 1 0:27 PM AGENCY LEGAL COUNSEL PERCUTANEOUS ARTERIAL THROMBECTOMY, INTRACRANIAL IP Routine 05/25/2021 10:13 PM AGENCY LEGAL COUNSEL MD CRITICAL CARE ILL/INJURED PATIENT INIT 30-74 MIN Routine 05/25/2021 9:13 PM AGENCY LEGAL COUNSEL URINALYSIS AND REFLEX TO MICROSCOPIC AND CULTURE Routine 05/25/2021 8:44 PM AGENCY LEGAL COUNSEL DRUGS OF ABUSE SCREEN, URINE WITHOUT CONFIRMATION STAT 05/25/2021 8:44 PM AGENCY LEGAL COUNSEL URINALYSIS, MICROSCOPIC ONLY Routine 05/25/2021 8:44 PM AGENCY LEGAL COUNSEL URINE CULTURE Routine 05/25/2021 8:44 PM AGENCY LEGAL COUNSEL XR CHEST 1 VIEW ED Urgent/IP Urgent 05/25/2021 8:43 PM AGENCY LEGAL COUNSEL ECG 12-LEAD STAT 05/25/2021 8:38 PM AGENCY LEGAL COUNSEL INFLUENZA A/B, RSV, AND COVID-19 PCR Routine 05/25/2021 8:19 PM AGENCY LEGAL COUNSEL CTA/CTP RAPID STROKE Critical/Life-Th reatening 05/25/2021 8:15 PM AGENCY LEGAL COUNSEL TROPONIN I HIGH-SENSITIVITY SERIES (BASELINE, 2HR, 4HR, 6HR) STAT 05/25/2021 7:56 PM AGENCY LEGAL COUNSEL EGFR STAT 05/25/2021 7:56 PM AGENCY LEGAL COUNSEL DIFFERENTIAL AUTO STAT 05/25/2021 7:5 6 PM AGENCY LEGAL COUNSEL HEPARIN ANTI FACTOR XA ACTIVITY STAT 05/25/2021 7:56 PM AGENCY LEGAL COUNSEL CBC WITH AUTO DIFFERENTIAL STAT 05/25/2021 7:56 PM AGENCY LEGAL COUNSEL APTT STAT 05/25/2021 7:56 PM AGENCY LEGAL COUNSEL HEMOGLOBIN A1C STAT 05/25/2021 7:56 PM AGENCY LEGAL COUNSEL LIPID PANEL STAT 05/25/2021 7:56 PM AGENCY LEGAL COUNSEL BASIC METABOLIC PANEL STAT 05/25/2021 7:56 PM AGENCY LEGAL COUNSEL POCT GLUCOSE DEVICE Routine 05/25/2021 7 :55 PM AGENCY LEGAL COUNSEL POCT PROTHROMBIN TIME, WHOLE BLOOD Routine 05/25/2021 7:53 PM AGENCY LEGAL COUNSEL documented in this encounter Results * XR [...] * POCT glucose (05/29/2021 11:46 AM CDT) [facility] Signature Glucose, POC 160 70 - 199 mg/dL [facility] Blood 05/29/2021 11:4 6 AM CDT 05/29/2021 11:46 AM CDT us David Mitchell MD LAB POCT ORDERABLES - DEVICE Fin al Result [facility] [place] [address] * POCT glucose (05/29/2021 7:36 AM CDT) Glucose, POC 132 70 - 199 mg/dL [facility] Blood 05/29/2021 7:36 AM CDT 05/29/2021 7:36 AM CDT us David Mitchell MD LAB POCT ORDERABLES - DEVICE Fin al Result [facility] [place] [address] * (ABNORMAL) eGFR (05/29/2021 4:09 AM CDT) eGFR 87(L) 90 - 130 mL/min/1. 73 m2 [facility] Comment: Interpretive Data Reference Interval Normal ?>/= [...] 5:00 AM CDT us Mahogany Wright Aubrey HOLE FILLER LAB BLOOD ORDERABLES Fi nal Result [facility] [place] [address] * Differential, auto (05/29/2021 4:09 AM CDT) Neutrophil abs 2.7 1.7 - 6.5 K/cumm [facility] Imm gran abs 0.0 0.0 - 0.1 K/cumm [facility] Lymphocyte abs 1.8 0.8 - 3.3 K/cumm [facility] Monocyte abs 0.4 0.2 - 0.8 K/cumm [facility] Eosinophil abs 0.0 0.0 - 0.5 K/cumm [facility] Basophil abs 0.0 0.0 - 0.1 K/cumm [facility] Neutrophil pct 53.9 % [facility] Comment: Interpretive Data Percent cell count reference ranges are not reported, since discordance with absolute values may lead to misinterpretation of CBC data. Current Interpretive Data was last revised on 2017. Imm gran pct 0.2 % [facility] Comment: Interpretive Data Percent cell count reference ranges are not reported, since discordance with absolute values may lead to misinterpretation of CBC data. Current Interpretive Data was last revised on 2017. Lymphocyte pct 36.2 % [facility] Comment: Interpretive Data Percent cell count reference ranges are not reported, since discordance with absolute values may lead to misinterpretation of CBC data. Current Interpretive Data was last revised on 2017. Monocyte pct 8.7 % [facility] Comment: Interpretive Data Percent cell count reference ranges are not reported, since discordance with absolute values may lead to misinterpretation of CBC data. Current Interpretive Data was last revised on 2017. Eosinophil pct 0.6 % [facility] Comment: Interpretive Data Percent cell [...] CDT 05/29/2021 5:00 AM CDT Mahogany Burgos HOLE FILLER LAB BLOOD ORDERABLES Fi nal Result Performing Organization Address City/[facility]/ZIP Co de Phone Number [facility] [place] [address] * Magnesium (05/29/2021 4:09 AM CDT) [facility] Magnesium 1.8 1.4 - 2.5 mg/dL [facility] Blood 05/29/2021 4:09 AM CDT 05/29/2021 5:00 AM CDT Kylah Lilly MD LAB BLOOD ORDERABLES Final Resul t Performing Organization Address [facility] Co de Phone Number [facility] [place] [address] * (ABNORMAL) CBC with auto differential (05/29/2021 4:09 AM CDT) [facility] WBC 5.0 3.8 - 9.9 K/cumm [facility] Hgb 8.8(L) 11.9 - 15.5 g/dL [facility] Hct 28.3(L) 35.6 - 45.5 % [facility] Plt 259 150 - 400 K/cumm [facility] MPV 9.7 9.1 - 12.3 fL [facility] RBC 3.34(L) 3.90 - 5.20 M/cumm [facility] MCV 84.7 81.3 - 96.4 fL [facility] MCH 26.3(L) 27.1 - 33.3 pg [facility] MCHC 31.1(L) 32.3 - 35.7 g/dL [facility] RDW CV 16.7(H) 11.1 - 14.9 % [facility] RDW SD 51.8(H) 35.7 - 48.1 fL [facility] NRBC abs 0.00 0.00 - 0.01 K/cumm [facility] Blood 05/29/2021 4:09 AM CDT 05/29/2021 5:00 AM CDT Mahogany Burgos NP LAB BLOOD ORDERABLES nal Result [facility] [place] [address] * Basic metabolic panel (05/29/2021 4:09 AM CDT) Sodium 138 135 - 145 mmol/L [facility] Potassium, pl 4.3 3.3 - 4.9 mmol/L [facility] Chloride 105 97 - 110 mmol/L [facility] CO2 27 22 - 32 mmol/L [facility] Anion gap 6 2 - 15 mmol/L [facility] BUN 17 8 - 25 mg/dL [facility] Creatinine 0.70 0.60 - 1.10 mg/dL [facility] Glucose 115 70 - 199 mg/dL [facility] Comment: Interpretive Data Fasting glucose [...] 2017. Calcium 9.6 8.5 - 10.3 mg/dL [facility] Blood 05/29/2021 4:09 AM CDT 05/29/2021 5:00 AM CDT us Mahogany Burgos HOLE FILLER LAB BLOOD ORDERABLES Fi nal Result Performing Organization Address [facility] Co de Phone Number [facility] [place] [address] * POCT glucose (05/28/2021 9:07 PM CDT) Glucose, POC 148 70 - 199 mg/dL [facility] Blood 05/28/2021 9:07 PM CDT 05/28/2021 9:07 PM CDT David Mitchell MD LAB POCT ORDERABLES - DEVICE Fin al Result Performing Organization Address [facility] Co de Phone Number [facility] [place] [address] * POCT glucose (05/28/2021 5:02 PM CDT) Glucose, POC 108 70 - 199 mg/dL [facility] Blood 05/28/2021 5:02 PM CDT 05/28/2021 5:02 PM CDT us David Mitchell MD LAB POCT ORDERABLES - DEVICE Fin al Result Performing Organization Address [facility] Co de Phone Number [facility] [place] [address] * XR Ankle Left 3 or More [...] Glucose, POC 156 70 - 199 mg/dL [facility] Blood 05/28/2021 11:5 0 AM CDT 05/28/2021 11:50 AM CDT us David Mitchell MD LAB POCT ORDERABLES - DEVICE Fin al Result Performing Organization Address [facility] de Phone Number [facility] [place] [address] * POCT glucose (05/28/2021 7:57 AM CDT) Glucose, POC 147 70 - 199 mg/dL [facility] Blood 05/28/2021 7:57 AM CDT 05/28/2021 7:57 AM CDT us David Mitchell MD LAB POCT ORDERABLES - DEVICE Fin al Result Performing Organization Address [facility] Co de Phone Number [facility] [place] [address] * CT Head WO Contrast (05/28/2021 5:03 [...] 90 - 130 mL/min/1. 73 m2 [facility] Comment: Interpretive Data Reference Interval Normal [...] NP LAB BLOOD ORDERABLES Fi nal Result [facility] [place] [address] * Differential, auto (05/27/2021 8:48 PM CDT) Neutrophil abs 2.7 1.7 - 6.5 K/cumm [facility] Imm gran abs 0.0 0.0 - 0.1 K/cumm [facility] Lymphocyte abs 1.3 0.8 - 3.3 K/cumm [facility] Monocyte abs 0.4 0.2 - 0.8 K/cumm [facility] Eosinophil abs 0.0 0.0 - 0.5 K/cumm [facility] Basophil abs 0.0 0.0 - 0.1 K/cumm [facility] Neutrophil pct 60.4 % [facility] Comment: Interpretive Data Percent cell count reference ranges are not reported, since discordance with absolute values may lead to misinterpretation of CBC data. Current Interpretive Data was last revised on 2017. Imm gran pct 0.4 % [facility] Comment: Interpretive Data Percent cell count reference ranges are not reported, since discordance with absolute values may lead to misinterpretation of CBC data. Current Interpretive Data was last revised on 2017. Lymphocyte pct 29.2 % [facility] Comment: Interpretive Data Percent cell count reference ranges are not reported, since discordance with absolute values may lead to misinterpretation of CBC data. Current Interpretive Data was last revised on 2017. Monocyte pct 9.4 % [facility] Comment: Interpretive Data Percent cell count reference ranges are not reported, since discordance with absolute values may lead to misinterpretation of CBC data. Current Interpretive Data was last revised on 2017. Eosinophil pct 0.4 % [facility] Comment: Interpretive Data Percent cell count reference ranges are not reported, since discordance with absolute values may lead to misinterpretation of CBC data. Current Interpretive Data was last revised on 2017. Basophil pct 0.2 % [facility] Comment: Interpretive Data Percent cell count reference ranges are not reported, since discordance with absolute values may lead to misinterpretation of CBC data. Current Interpretive Data was last revised on 2017. Blood 05/27/2021 8:48 PM CDT 05/27/2021 10:29 PM CDT Mahogany Burgos NP LAB BLOOD ORDERABLES Fi nal Result Performing Organization Address City/[facility]/ZIP Co de Phone Number [facility] [place] [address] * Transferrin (05/27/2021 8:48 PM CDT) Transferrin 312 200 - 360 mg/dL [facility] Blood 05/27/2021 8:48 PM CDT 05/27/2021 10:29 PM CDT Kylah Lilly MD LAB BLOOD ORDERABLES Final Resul t Performing Organization Address [facility] Co de Phone Number [facility] [address] * (ABNORMAL) Iron profile w/ IBC (05/27/2021 8:48 PM CDT) Iron 21(L) 35 - 145 mcg/dL [facility] TIBC 284 250 - 400 mcg/dL [facility] Transferrin saturation 7(L) 20 - 50 % [facility] Blood 05/27/2021 8:48 PM CDT 05/27/2021 10:29 PM CDT Kylah Lilly MD LAB BLOOD ORDERABLES Final Resul t Performing Organization Address [facility] Co de Phone Number [facility] [address] * Ferritin (05/27/2021 8:48 PM CDT) Ferritin 34 13 - 150 ng/mL [facility] Blood 05/27/2021 8:48 PM CDT 05/27/2021 10:29 PM CDT Kylah Lilly MD LAB BLOOD ORDERABLES Final Resul t Performing Organization Address City/[facility] Co de Phone Number [facility] [place] [address] * Magnesium (05/27/2021 8:48 PM CDT) [facility] Magnesium 1.9 1.4 - 2.5 mg/dL [facility] Blood 05/27/2021 8:48 PM CDT 05/27/2021 10:29 PM CDT Kylah Lilly MD LAB BLOOD ORDERABLES Final Resul t Performing Organization Address [facility] de Phone Number [facility] [place] [address] * (ABNORMAL) CBC with auto differential (05/27/2021 8:48 PM CDT) [facility] WBC 4.5 3.8 - 9.9 K/cumm [facility] Hgb 7.8(L) 11.9 - 15.5 g/dL [facility] Hct 25.0(L) 35.6 - 45.5 % [facility] Plt 243 150 - 400 K/cumm [facility] MPV 10.0 9.1 - 12.3 fL [facility] RBC 2.99(L) 3.90 - 5.20 M/cumm [facility] MCV 83.6 81.3 - 96.4 fL [facility] MCH 26.1(L) 27.1 - 33.3 pg [facility] MCHC 31.2(L) 32.3 - 35.7 g/dL [facility] RDW CV 16.5(H) 11.1 - 14.9 % [facility] RDW SD 50.4(H) 35.7 - 48.1 fL [facility] NRBC abs 0.00 0.00 - 0.01 K/cumm [facility] Blood 05/27/2021 8:48 PM CDT 05/27/2021 10:29 PM CDT Mahogany Burgos HOLE FILLER LAB BLOOD ORDERABLES Fi nal Result Performing Organization Address [facility]/ZIP Co de Phone Number [facility] [place] [address] * Basic metabolic panel (05/27/2021 8:48 PM CDT) [facility] Sodium 138 135 - 145 mmol/L [facility] Potassium, pl 4.5 3.3 - 4.9 mmol/L [facility] Chloride 105 97 - 110 mmol/L [facility] CO2 28 22 - 32 mmol/L [facility] Anion gap 5 2 - 15 mmol/L [facility] BUN 22 8 - 25 mg/dL [facility] Creatinine 0.71 0.60 - 1.10 mg/dL [facility] Glucose 190 70 - 199 mg/dL [facility] Comment: Interpretive Data Fasting glucose [...] 2017. Calcium 9.4 8.5 - 10.3 mg/dL [facility] Blood 05/27/2021 8:48 PM CDT 05/27/2021 10:29 PM CDT Mahogany Burgos HOLE FILLER LAB BLOOD ORDERABLES Fi nal Result Performing Organization Address [facility] Co de Phone Number [facility] [place] [address] * POCT glucose (05/27/2021 5:30 PM CDT) Glucose, POC 128 70 - 199 mg/dL [facility] Blood 05/27/2021 5:30 PM CDT 05/27/2021 5:30 PM CDT Kylah Lilly MD LAB POCT ORDERABLES - DEVICE Fin al Result Performing Organization Address City/[facility]/ZIP Co de Phone Number [facility] [place] [address] * POCT glucose (05/27/2021 11:30 AM CDT) Glucose, POC 146 70 - 199 mg/dL [facility] Blood 05/27/2021 11:3 0 AM CDT 05/27/2021 11:30 AM CDT Kylah Lilly MD LAB POCT ORDERABLES - DEVICE Fin al Result Performing Organization Address City/[facility] Co de Phone Number [facility] [place] [address] * POCT glucose (05/27/2021 7:43 AM CDT) Glucose, POC 140 70 - 199 mg/dL [facility] Blood 05/27/2021 7:43 AM CDT 05/27/2021 7:43 AM CDT Kylah Lilly MD LAB POCT ORDERABLES - DEVICE Fin al Result Performing Organization Address City/[facility] Co de Phone Number [facility] [address] * POCT glucose (05/27/2021 6:00 AM CDT) Glucose, POC 108 70 - 199 mg/dL [facility] Blood 05/27/2021 6:00 AM CDT 05/27/2021 6:00 AM CDT David Mitchell MD LAB POCT ORDERABLES - DEVICE Fin al Result Performing Organization Address City/[facility] Co de Phone Number [facility] [place] [address] * (ABNORMAL) POCT glucose (05/26/2021 9:16 PM CDT) Glucose, POC 244(H) 70 - 199 mg/dL [facility] Blood 05/26/2021 9:16 PM CDT 05/26/2021 9:16 PM CDT David Mitchell MD LAB POCT ORDERABLES - DEVICE Fin al Result Performing Organization Address [facility] de Phone Number [facility] [place] [address] * (ABNORMAL) eGFR (05/26/2021 8:17 PM CDT) Pathologist [facility] eGFR 64(L) 90 - 130 mL/min/1. 73 m2 [facility] Comment: Interpretive Data Reference Interval Normal ?>/= [...] MD LAB BLOOD ORDERABL ES Final Result [facility] [place] [address] * (ABNORMAL) CBC without differential (05/26/2021 8:17 PM CDT) WBC 7.1 3.8 - 9.9 K/cumm [facility] Hgb 8.2(L) 11.9 - 15.5 g/dL [facility] Hct 26.8(L) 35.6 - 45.5 % [facility] Plt 276 150 - 400 K/cumm [facility] MPV 10.3 9.1 - 12.3 fL [facility] RBC 3.15(L) 3.90 - 5.20 M/cumm [facility] MCV 85.1 81.3 - 96.4 fL [facility] MCH 26.0(L) 27.1 - 33.3 pg [facility] MCHC 30.6(L) 32.3 - 35.7 g/dL [facility] RDW CV 16.8(H) 11.1 - 14.9 % [facility] RDW SD 52.3(H) 35.7 - 48.1 fL [facility] NRBC abs 0.00 0.00 - 0.01 K/cumm [facility] Blood 05/26/2021 8:17 PM CDT 05/26/2021 8:46 PM CDT us David Mitchell MD LAB BLOOD ORDERABLES Final Resul t Performing Organization Address City/[facility]/ZIP Co de Phone Number [facility] [address] * Phosphorus (05/26/2021 8:17 PM CDT) [facility] Phosphorus, pl 3.5 2.3 - 4.5 mg/dL [facility] Blood 05/26/2021 8:17 PM CDT 05/26/2021 8:45 PM CDT Yani Mcnair MD LAB BLOOD ORDERABL ES Final Result Performing Organization Address [facility] Co de Phone Number [facility] [place] [address] * Magnesium (05/26/2021 8:17 PM CDT) [facility] Magnesium 2.1 1.4 - 2.5 mg/dL [facility] Blood 05/26/2021 8:17 PM CDT 05/26/2021 8:45 PM CDT Yani Mcnair MD LAB BLOOD ORDERABL ES Final Result Performing Organization Address [facility] Co de Phone Number [facility] [place] [address] * (ABNORMAL) Comprehensive metabolic panel (05/26/2021 8:17 PM CDT) [facility] Sodium 136 135 - 145 mmol/L [facility] Potassium, pl 3.9 3.3 - 4.9 mmol/L [facility] Chloride 102 97 - 110 mmol/L [facility] CO2 26 22 - 32 mmol/L [facility] Anion gap 8 2 - 15 mmol/L [facility] BUN 25 8 - 25 mg/dL [facility] Creatinine 0.91 0.60 - 1.10 mg/dL [facility] Glucose 230(H) 70 - 199 mg/dL [facility] Comment: Interpretive Data Fasting glucose [...] 2017. Calcium 9.2 8.5 - 10.3 mg/dL [facility] Bilirubin, total 0.4 0.1 - 1.2 mg/dL [facility] Protein, pl 6.3(L) 6.5 - 8.5 g/dL [facility] Albumin 3.3(L) 3.5 - 5.0 g/dL [facility] Alk phos 91 40 - 130 Units/L [facility] ALT 27 7 - 45 Units/L [facility] AST 16 10 - 45 Units/L [facility] Blood 05/26/2021 8:17 PM CDT 05/26/2021 8:45 PM CDT Yani Mcnair MD LAB BLOOD ORDERABL ES Final Result [facility] [place] [address] * XR Ankle Left 2 Views (05/26/2021 [...] POC 117 70 - 199 mg/dL [facility] Blood 05/26/2021 5:21 PM CDT 05/26/2021 5:21 PM CDT us David Mitchell MD LAB POCT ORDERABLES - DEVICE Fin al Result [facility] [place] [address] * XR Ankle Left 3 or More [...] * POCT glucose (05/26/2021 11:37 AM CDT) [facility] Signature Glucose, POC 126 70 - 199 mg/dL [facility] Blood 05/26/2021 11:3 7 AM CDT 05/26/2021 11:37 AM CDT us David Mitchell MD LAB POCT ORDERABLES - DEVICE Fin al Result Performing Organization Address [facility] [place] [address] * POCT glucose (05/26/2021 6:05 AM CDT) Glucose, POC 159 70 - 199 mg/dL [facility] Blood 05/26/2021 6:05 AM CDT 05/26/2021 6:05 AM CDT us David Mitchell MD LAB POCT ORDERABLES - DEVICE Fin al Result Performing Organization Address [facility] [place] [address] * POCT glucose (05/26/2021 12:49 AM AGENCY LEGAL COUNSEL) Glucose, POC 189 70 - 199 mg/dL [facility] Blood 05/26/2021 12:4 9 AM AGENCY LEGAL COUNSEL 05/26/2021 12:49 AM AGENCY LEGAL COUNSEL us David Mitchell MD LAB POCT ORDERABLES - DEVICE Fin al Result Performing Organization Address [facility] [place] [address] * (ABNORMAL) eGFR (05/25/2021 11:12 PM AGENCY LEGAL COUNSEL) eGFR 58(L) 90 - 130 mL/min/1. 73 m2 [facility] Comment: Interpretive Data Reference Interval Normal ?>/= [...] reviewed 2021. Blood 05/25/2021 11:1 2 PM AGENCY LEGAL COUNSEL 05/26/2021 12:15 AM AGENCY LEGAL COUNSEL Yani Mcnair MD LAB BLOOD ORDERABL ES Final Result [facility] [place] [address] * (ABNORMAL) Protime-INR (05/25/2021 11:12 PM AGENCY LEGAL COUNSEL) PT 13.8(H) 9.5 - 13.6 sec [facility] INR 1.2 0.9 - 1.2 [facility] Comment: Interpretive data Oral anticoagulant therapeutic ranges: Venous thromboembolism prophylaxis or treatment: 2.0-3.0 CARDIOLOGY Standard range: 2.0-3.0 High-intensity range: 2.5-3.5 Refer to indication-specific guidelines for appropriate target ranges for prosthetic heart valve replacement. Current interpretive data was last revised on 2019. Blood 05/25/2021 11:1 2 PM AGENCY LEGAL COUNSEL 05/26/2021 12:42 AM AGENCY LEGAL COUNSEL Yani Mcnair MD LAB BLOOD ORDERABL ES Final Result Performing Organization Address [facility] [place] [address] * aPTT (05/25/2021 11:12 PM AGENCY LEGAL COUNSEL) aPTT 27 27 - 37 sec [facility] Comment: Interpretive Data Therapeutic heparin range: 60.0 - 94.0 seconds. Based on correlation with therapeutic heparin activity range of 0.3-0.7 Units/mL. Current interpretive data was last revised on 2020. Blood 05/25/2021 11:1 2 PM AGENCY LEGAL COUNSEL 05/26/2021 12:42 AM AGENCY LEGAL COUNSEL Yani Mcnair MD LAB BLOOD ORDERABL ES Final Result Performing Organization Address [facility] [place] [address] * Type and screen (05/25/2021 11:12 PM AGENCY LEGAL COUNSEL) Pathologist [facility] Gian, indirect Negative [facility] ABO Rh O Positive [facility] Blood 05/25/2021 11:1 2 PM AGENCY LEGAL COUNSEL 05/26/2021 12:26 AM AGENCY LEGAL COUNSEL Narrative [facility] - 05/26/2021 1:45 AM AGENCY LEGAL COUNSEL Has the patient had Daratumumab or Isatuximab in the past 6 months?->Unknown Yani Mcnair MD LAB BLOOD BANK CAMPOS T ORDERABLES Final Result Performing Organization Address [facility] [place] [address] * (ABNORMAL) CBC without differential (05/25/2021 11:12 PM AGENCY LEGAL COUNSEL) WBC 8.7 3.8 - 9.9 K/cumm [facility] Hgb 8.2(L) 11.9 - 15.5 g/dL [facility] Hct 27.0(L) 35.6 - 45.5 % [facility] Plt 257 150 - 400 K/cumm [facility] MPV 10.4 9.1 - 12.3 fL [facility] RBC 3.11(L) 3.90 - 5.20 M/cumm [facility] MCV 86.8 81.3 - 96.4 fL [facility] MCH 26.4(L) 27.1 - 33.3 pg [facility] MCHC 30.4(L) 32.3 - 35.7 g/dL [facility] RDW CV 16.7(H) 11.1 - 14.9 % [facility] RDW SD 52.6(H) 35.7 - 48.1 fL [facility] NRBC abs 0.00 0.00 - 0.01 K/cumm [facility] Blood 05/25/2021 11:1 2 PM AGENCY LEGAL COUNSEL 05/26/2021 12:15 AM AGENCY LEGAL COUNSEL Yani Mcnair MD LAB BLOOD ORDERABL ES Final Result Performing Organization Address City/[facility]/ZIP Co de Phone Number [facility] [place] [address] * Phosphorus (05/25/2021 11:12 PM AGENCY LEGAL COUNSEL) [facility] Phosphorus, pl 4.0 2.3 - 4.5 mg/dL [facility] Blood 05/25/2021 11:1 2 PM AGENCY LEGAL COUNSEL 05/26/2021 12:15 AM AGENCY LEGAL COUNSEL Yani Mcnair MD LAB BLOOD ORDERABL ES Final Result Performing Organization Address [facility] Co de Phone Number [facility] [place] [address] * Magnesium (05/25/2021 11:12 PM AGENCY LEGAL COUNSEL) Magnesium 1.8 1.4 - 2.5 mg/dL [facility] Blood 05/25/2021 11:1 2 PM AGENCY LEGAL COUNSEL 05/26/2021 12:15 AM AGENCY LEGAL COUNSEL Yani Mcnair MD LAB BLOOD ORDERABL ES Final Result [facility] [place] [address] * (ABNORMAL) Comprehensive metabolic panel (05/25/2021 11:12 PM AGENCY LEGAL COUNSEL) Pathologist [facility] Sodium 137 135 - 145 mmol/L [facility] Potassium, pl 4.0 3.3 - 4.9 mmol/L [facility] Chloride 101 97 - 110 mmol/L [facility] CO2 26 22 - 32 mmol/L [facility] Anion gap 10 2 - 15 mmol/L [facility] BUN 26(H) 8 - 25 mg/dL [facility] Creatinine 0.99 0.60 - 1.10 mg/dL [facility] Glucose 188 70 - 199 mg/dL [facility] Comment: Interpretive Data Fasting glucose [...] 2017. Calcium 8.8 8.5 - 10.3 mg/dL [facility] Bilirubin, total 0.4 0.1 - 1.2 mg/dL [facility] Protein, pl 6.5 6.5 - 8.5 g/dL [facility] Albumin 3.4(L) 3.5 - 5.0 g/dL [facility] Alk phos 102 40 - 130 Units/L [facility] ALT 25 7 - 45 Units/L [facility] AST 22 10 - 45 Units/L [facility] Blood 05/25/2021 11:1 2 PM AGENCY LEGAL COUNSEL 05/26/2021 12:15 AM AGENCY LEGAL COUNSEL Yani Mcnair MD LAB BLOOD ORDERABL ES Final Result Performing Organization Address [facility]/ZIP Co de Phone Number [facility] [place] [address] * (ABNORMAL) Troponin I high-sensitivity 2-hour (05/25/2021 11:12 PM AGENCY LEGAL COUNSEL) Trop I hs 22(H) <=17 ng/L [facility] Comment: Interpretive Data For further hscTnI resources including the diagnostic algorithm and an aid in interpretation, copy and paste this link: https://bjab.testcatalog.org/show/[email or web address] Current Interpretive Data last revised 2019. Trop I hs delta See Comment ng/L [facility] Comment:Inappropriate collec tion time to report a delta. Trop I hs pct delta See Comment % [facility] Comment:Inappropriate collec tion time to report a delta. Trop I hs interp See Comment [facility] Comment:Inappropriate collec tion time to report a delta. Blood 05/25/2021 11:1 2 PM AGENCY LEGAL COUNSEL 05/26/2021 12:14 AM AGENCY LEGAL COUNSEL Kunal Dalton MD LAB BLOOD ORDERABLES Final Result Performing Organization Address City/[facility]/ZIP Co de Phone Number [facility] [place] [address] * ECG 12 lead (05/25/2021 10:33 PM AGENCY LEGAL COUNSEL) Ventricular Rate EKG/Min 87 BPM [facility] Atrial Rate 68 BPM [facility] QRS-Interval (MSEC) 102 ms [facility] QT-Interval (MSEC) 454 ms [facility] QTc 546 ms [facility] R [place] 79 degrees [facility] T [place] -35 degrees [facility] Diagnosis Atrial fibrillation T wave abnormality, consider anterolateral ischemia Prolonged QT Abnormal ECG When compared with ECG of 13-SEP-2020 09:50, T wave inversion now evident in Anterior leads QT has lengthened Confirmed by GREGORY CLINE M.D ([id number]) on 05/27/2021 1:21:56 PM [facility] 05/25/2021 10:3 3 PM AGENCY LEGAL COUNSEL 05/27/2021 1:21 PM CDT us Yani Mcnair MD ECG ORDERABLES Fi nal Result Performing Organization Address [facility] Co de Phone Number [facility] * POCT glucose (05/25/2021 10:27 PM AGENCY LEGAL COUNSEL) [facility] Glucose, POC 130 70 - 199 mg/dL [facility] Blood 05/25/2021 10:2 7 PM AGENCY LEGAL COUNSEL 05/25/2021 10:27 PM AGENCY LEGAL COUNSEL David Mitchell MD LAB POCT ORDERABLES - DEVICE Fin al Result Performing Organization Address [facility] Co de Phone Number [facility] [place] [address] * IR Percutaneous Arterial Thrombectomy, Intracranial (05/25/2021 10:13 PM AGENCY LEGAL COUNSEL) Anatomical Region Laterality Modality Head N/A Radio [...] verapamil IA 10 mg MATERIALS: 21-gauge needle 6-Sudanese Terumo glide sheath 16 cm and mini guidewire 90 cm Ballast 088 long sheath 125 cm 5-Sudanese Yeager 2 catheter Terumo Glidewire 138 cm [...] vessel and were stored to PACS.. ??The 6-Sudanese Terumo glide sheath 16 cm was then [...] brachial artery and used to exchange the 6-Sudanese radial sheath for a 90 cm Ballast 088 long sheath. ??The Ballast long sheath was advanced under fluoroscopic visualization into the right innominate artery. ??A 125 cm 5-Sudanese Yeager 2 catheter was introduced through the [...] verapamil IA 10 mg MATERIALS: 21-gauge needle 6-Sudanese Terumo glide sheath 16 cm and mini guidewire 90 cm Ballast 088 long sheath 125 cm 5-Sudanese Yeager 2 catheter Terumo Glidewire 138 cm [...] vessel and were stored to PACS.. The 6-Sudanese Terumo glide sheath 16 cm was then [...] brachial artery and used to exchange the 6-Sudanese radial sheath for a 90 cm Ballast 088 long sheath. The Ballast long sheath was advanced under fluoroscopic visualization into the right innominate artery. A 125 cm 5-Sudanese Yeager 2 catheter was introduced through the [...] IMG IR PROCEDURES Final Re sult * MD CRITICAL CARE ILL/INJURED PATIENT INIT 30-74 MIN (05/25/2021 9:13 PM AGENCY LEGAL COUNSEL) Narrative Kunal Dalton MD - 05/25/2021 9:13 PM AGENCY LEGAL COUNSEL Kunal Dalton MD ? 05/25/2021 ??9:15 PM [...] * Urine culture Urine (05/25/2021 8:44 PM AGENCY LEGAL COUNSEL) Report Final Report: Less than 100,000 colonies/mL (clinically insignificant growth based on current clinical standards) [facility] Organism (CLINICALLY INSIGNIFICANT GROWTH [facility] Urine 05/25/2021 8:44 PM AGENCY LEGAL COUNSEL 05/25/2021 10:47 PM AGENCY LEGAL COUNSEL Narrative [facility] - 05/27/2021 4:28 PM CDT Urine culture reflexed based upon urinalysis results. Testing performed by [facility] ([phone]) Joseph Dallas MD LAB MICROBIOLOGY - GE NERAL ORDERABLES Final Result Performing Organization Address [facility] de Phone Number [facility] [place] [address] * (ABNORMAL) Urinalysis, microscopic only (05/25/2021 8:44 PM AGENCY LEGAL COUNSEL) WBC, ur 11-20(A) 0 - 5 /HPF [facility] RBC, ur 3-5(A) 0 - 2 /HPF [facility] Epithelial cells, squamous, ur 1-5 0 - 5 /HPF [facility] Bacteria, ur 1+(A) [facility] Hyaline casts, ur 1-5 0 - 10 /LPF [facility] Culture Reflex Comment Reflex to urine culture will be performed. [facility] Urine 05/25/2021 8:44 PM AGENCY LEGAL COUNSEL 05/25/2021 8:51 PM AGENCY LEGAL COUNSEL us Joseph Dallas MD LAB URINE ORDERABLES Final Result Performing Organization Address [facility] de Phone Number [facility] [place] [address] * (ABNORMAL) Urinalysis reflex to microscopic and culture Urine (05/25/2021 8:44 PM AGENCY LEGAL COUNSEL) Color, ur Straw Yellow [facility] Clarity, ur Clear Clear [facility] Specific gravity, ur 1.017 1.003 - 1.030 [facility] pH, urine 6.0 [facility] Protein, ur ql Trace Negative [facility] Glucose, ur ql Negative Negative [facility] Ketones, ur Negative Negative [facility] Bilirubin, ur Negative Negative [facility] Blood, ur 2+(A) Negative [facility] Urobilinogen, ur <2.0 <2.0 mg/dL [facility] Nitrite, ur Negative Negative [facility] Leukocyte esterase, ur 2+(A) Negative [facility] UA reflex comment Reflex to microscopic UA will be performed. [facility] Urine 05/25/2021 8:44 PM AGENCY LEGAL COUNSEL 05/25/2021 8:51 PM AGENCY LEGAL COUNSEL Narrative [facility] - 05/25/2021 9:06 PM AGENCY LEGAL COUNSEL ?? Urine pH is affected by diet, medications, systemic acid-base disturbances, and renal tubular function. ??pH may affect urinary stone formation. ??For example, urine pH below 6.0 may help reduce the tendency for calcium phosphate stones and pH greater than 6.0 may reduce the tendency for uric acid stone formation. Source: [facility] [place]. Last revised 03-26-2017 Joseph Dallas MD LAB MICROBIOLOGY - [facility] ORDERABLES Final Result [facility] [place] [address] * Drugs of Abuse Screen, Urine without Confirmation (05/25/2021 8:44 PM AGENCY LEGAL COUNSEL) Amphetamine, ur Not Detected CutOff 500ng/mL [facility] Comment: Interpretive Data - Amphetamines: ??Samples containing greater than 500 ng/mL d-methamphetamine ??or other cross-reacting amphetamine compounds are reported as positive. ??Amphetamine immunoassays are subject to significant false positive rates due to cross-reactivity of non-amphetamine drugs. Current Interpretive Data was last reviewed 2018. Barbiturates, ur Not Detected CutOff 200ng/mL [facility] Comment: Interpretive Data - Barbiturates: ??Samples containing greater than 200 ng/mL secobarbital or other cross-reacting barbiturate compounds are reported as positive. ??False positive and false negative results are possible. Current Interpretive Data was last reviewed 2018. Benzodiazepines, ur Not Detected CutOff 100ng/mL [facility] Comment: Interpretive Data - Benzodiazepines: ??Samples containing greater than 100 ng/mL nordiazepam or other cross-reacting compounds are reported as positive. ?? False positive and false negative results are possible. ?? Current Interpretive Data was last reviewed 2018. Cannabinoids, ur Not Detected CutOff 50 ng/mL [facility] Cocaine, ur Not Detected CutOff 150ng/mL [facility] Comment: Interpretive Data - Cocaine: ??Samples containing greater than 150 ng/mL benzoylecgonine or other cross-reacting compounds are reported as positive. False positive and false negative results are possible. Current Interpretive Data was last reviewed 2018. Fentanyl, Ur Not Detected Cutoff 1 ng/mL [facility] Comment: Interpretive Data - Fentanyls: ??Samples containing greater than 1 ng/mL fentanyl or other cross-reacting fentanyl compounds are reported as detected. ??False positive and false negative results are possible. Current Interpretive Data was last reviewed 2018. Methadone, ur Not Detected CutOff 300ng/mL [facility] Comment: Interpretive Data - Methadone: ??Samples containing greater than 300 ng/mL d,l-methadone or other cross-reacting compounds are reported as positive. ??False positive and false negative results are possible. Current Interpretive Data was last reviewed 2018. Opiates, ur Not Detected CutOff 300ng/mL [facility] Comment: Interpretive Data - Opiates: ??Samples containing greater than 300 ng/mL morphine or other cross-reacting compounds are reported as positive. ??False positive and false negative results are possible. Current Interpretive Data was last reviewed 2018. Oxycodone, ur Not Detected CutOff 100ng/mL [facility] Comment: Interpretive Data - Oxycodone: ??Samples containing greater than 100 ng/mL oxycodone or other cross-reacting compounds are reported as positive. ??False positive and false negative results are possible. ?? Current Interpretive Data was last reviewed 2018. Phencyclidine, ur Not Detected CutOff 25 ng/mL [facility] Comment: Interpretive Data - Phencyclidine: ??Samples containing greater than 25 ng/mL phencyclidine or other cross-reacting compounds are reported as positive. ??False positive and false negative results are possible. ?? Current Interpretive Data was last reviewed 2018. Urine Creatinine 30 mg/dL [facility] Comment: Interpretive Data Urine Creatinine: < 10 mg/dL is extremely dilute = or > 10 but < 20 mg/dL is dilute = or > 20 mg/dL is normal Current Interpretive Data was last revised on 2017. Urine 05/25/2021 8:44 PM AGENCY LEGAL COUNSEL 05/25/2021 8:57 PM AGENCY LEGAL COUNSEL Narrative [facility] - 05/25/2021 9:23 PM AGENCY LEGAL COUNSEL Drug of Abuse screening is performed by immunoassay for medical purposes only. ??This is not to be used for Pain Management purposes. us Joseph Dallas MD LAB URINE ORDERABLES Final Result [facility] [place] [address] * XR Chest 1 View (05/25/2021 8:43 PM AGENCY LEGAL COUNSEL) Anatomical Region Laterality Modality Body, Chest N/A Computed Radiogr aphy 05/25/2021 8:49 PM AGENCY LEGAL COUNSEL Impressions 05/26/2021 9:35 AM CDT A single view of the chest dated for interpretation with comparison made to 06/08/2019. Unchanged calcified granuloma in the right upper lobe. No pleural effusion or pneumothorax. No pneumonic consolidation or edema. Unchanged [id number] cardiomegaly and calcified plaque disease of the [...] pneumothorax. No pneumonic consolidation or edema. Unchanged [id number] cardiomegaly and calcified plaque disease of the thoracic aorta. Dictated by: Dontae Herrera The radiology attending physician has personally reviewed this study, and had reviewed and/or edited this written report and agrees with it. Electronically signed by: Carlitos Amin M.D. us Joseph Dallas MD IMG XR PROCEDURES Fin al Result * (ABNORMAL) ECG 12-LEAD (05/25/2021 8:38 PM AGENCY LEGAL COUNSEL) Narrative [facility] - 05/25/2021 8:38 PM AGENCY LEGAL COUNSEL Kunal Dalton MD ? 05/25/2021 ??8:44 PM [...] MD ECG ORDERABLES Final Resu lt [facility] * Influenza A/B, RSV, and COVID-19 PCR Nasopharyngeal (05/25/2021 8:19 PM AGENCY LEGAL COUNSEL) COVID-19 RNA Negative Negative [facility] Influenza A RNA Negative Negative [facility] Influenza B RNA Negative Negative [facility] RSV RNA Negative Negative [facility] Comment: Interpretive data: Testing performed by [facility] ([phone]). This test is performed using the [employer] Xpert Xpress CoV-2/Flu/RSV plus assay. This is a multiplex, real-time reverse transcriptase PCR assay intended for the qualitative detection of nucleic acid from SARS-CoV-2, influenza A, influenza B, and respiratory syncytial virus. This assay has been reviewed by the FDA for Emergency Use Authorization (EUA). The performance characteristics have been verified by the [facility]. Results must be considered in the clinical context, and a negative result does not rule out infection. Interpretive Data last revised 2021. First COVID-19 test? No [facility] Employeed in healthcare? No [facility] status? No [facility] Group care resident? No [facility] Hospitalized? No [facility] Is patient in ICU? No [facility] Symptomatic as defined by CDC? No [facility] Nasopharyngeal 05/25/2021 8: 19 PM AGENCY LEGAL COUNSEL 05/25/2021 8:36 PM AGENCY LEGAL COUNSEL Narrative [facility] - 05/25/2021 9:17 PM AGENCY LEGAL COUNSEL Reason for testing?->Bed placement or semi-private room Known exposure to confirmed or suspected COVID-19 case?->No Joseph Dallas MD LAB MICROBIOLOGY - GE NERAL ORDERABLES Final Result [facility] [place] [address] * CTA/CTP Rapid Stroke (C) (05/25/2021 8:15 PM AGENCY LEGAL COUNSEL) Anatomical Region Laterality Modality Head and Neck N/A Computed Tomogra phy 05/25/2021 8:27 PM AGENCY LEGAL COUNSEL Impressions 05/26/2021 8:58 AM CDT 1. Right [...] separate workstation for processing by RAPID software ([employer]) to produce automated calculations of the estimated [...] Artery: no occlusion or significant stenosis L TOOL GRINDER: no occlusion or significant stenosis R TOOL GRINDER: no occlusion or significant stenosis No cerebral [...] separate workstation for processing by RAPID software ([employer]) to produce automated calculations of the estimated [...] Artery: no occlusion or significant stenosis L TOOL GRINDER: no occlusion or significant stenosis R TOOL GRINDER: no occlusion or significant stenosis No cerebral [...] Electronically signed by: Nick Gibbs M.D. Kunal Dlaton MD IMG CT PROCEDURES Final Re sult * (ABNORMAL) eGFR (05/25/2021 7:56 PM AGENCY LEGAL COUNSEL) [facility] eGFR 48(L) 90 - 130 mL/min/1. 73 m2 [facility] Comment: Interpretive Data Reference Interval Normal ?>/= [...] last reviewed 2021. Blood 05/25/2021 7:56 PM AGENCY LEGAL COUNSEL 05/25/2021 8:06 PM AGENCY LEGAL COUNSEL us Kunal Dalton MD LAB BLOOD ORDERABLES Final Result Performing Organization Address [facility] de Phone Number [facility] [place] [address] * (ABNORMAL) Hemoglobin A1c (05/25/2021 7:56 PM AGENCY LEGAL COUNSEL) Hgb A1C 6.2(H) 4.0 - 5.6 % [facility] Estimated Average Glucose 131 mg/dL [facility] Comment: The ADA recommends reporting an estimated Average Glucose (eAG) with all Hemoglobin A1c results using the equation derived from a study of 507 normal and diabetic adults. ??Minority populations were underrepresented and children were not included. ?? (Diabetes Care 2020; 43(S1): S66-S76). ??The eAG is not equivalent to a fasting glucose. Blood 05/25/2021 7:56 PM AGENCY LEGAL COUNSEL 05/25/2021 8:11 PM AGENCY LEGAL COUNSEL us Notinfile Unknown LAB BLOOD ORDERABLES Final Res ult Performing Organization Address [facility] Co de Phone Number [facility] [place] [address] * (ABNORMAL) Lipid panel (05/25/2021 7:56 PM AGENCY LEGAL COUNSEL) [facility] Cholesterol 73 30 - 199 mg/dL [facility] on 2017. Triglycerides 104 <=149 mg/dL [facility] Comment: Interpretive [...] on 2017. HDL 37(L) >=40 mg/dL [facility] Comment: Interpretive [...] on 2017. LDL, calculated 15 <=129 mg/dL [facility] Comment: Interpretive Data Ages < [...] revised on 2017. Non-HDL Cholesterol 36 mg/dL [facility] Comment: Interpretive Data Ages < [...] last revised on 2017. Chol/HDL ratio 2 [facility] Blood 05/25/2021 7:56 PM AGENCY LEGAL COUNSEL 05/25/2021 8:06 PM AGENCY LEGAL COUNSEL us Notinfile Unknown LAB BLOOD ORDERABLES Final Res ult Performing Organization Address City/[facility]/ZIP Co de Phone Number [facility] [place] [address] * Heparin anti factor Xa activity (05/25/2021 7:56 PM AGENCY LEGAL COUNSEL) Anti Factor Xa <0.15 IUnits/mL [facility] Comment: Code Blue Specimen Interpretive Data Enoxaparin [...] revised on 2018. Blood 05/25/2021 7:56 PM AGENCY LEGAL COUNSEL 05/25/2021 8:06 PM AGENCY LEGAL COUNSEL us Notinfile Unknown LAB BLOOD ORDERABLES Final Res ult [facility] [place] [address] * (ABNORMAL) Differential, auto (05/25/2021 7:56 PM AGENCY LEGAL COUNSEL) Neutrophil abs 7.9(H) 1.7 - 6.5 K/cumm [facility] Imm gran abs 0.0 0.0 - 0.1 K/cumm [facility] Lymphocyte abs 1.2 0.8 - 3.3 K/cumm [facility] Monocyte abs 0.6 0.2 - 0.8 K/cumm [facility] Eosinophil abs 0.1 0.0 - 0.5 K/cumm [facility] Basophil abs 0.0 0.0 - 0.1 K/cumm [facility] Neutrophil pct 80.6 % [facility] Comment: Interpretive Data Percent cell count reference ranges are not reported, since discordance with absolute values may lead to misinterpretation of CBC data. Current Interpretive Data was last revised on 2017. Imm gran pct 0.3 % [facility] Comment: Interpretive Data Percent cell count reference ranges are not reported, since discordance with absolute values may lead to misinterpretation of CBC data. Current Interpretive Data was last revised on 2017. Lymphocyte pct 11.8 % [facility] Comment: Interpretive Data Percent cell count reference ranges are not reported, since discordance with absolute values may lead to misinterpretation of CBC data. Current Interpretive Data was last revised on 2017. Monocyte pct 6.5 % [facility] Comment: Interpretive Data Percent cell count reference ranges are not reported, since discordance with absolute values may lead to misinterpretation of CBC data. Current Interpretive Data was last revised on 2017. Eosinophil pct 0.6 % [facility] Comment: Interpretive Data Percent cell count reference ranges are not reported, since discordance with absolute values may lead to misinterpretation of CBC data. Current Interpretive Data was last revised on 2017. Basophil pct 0.2 % [facility] Comment: Interpretive Data Percent cell count reference ranges are not reported, since discordance with absolute values may lead to misinterpretation of CBC data. Current Interpretive Data was last revised on 2017. Blood 05/25/2021 7:56 PM AGENCY LEGAL COUNSEL 05/25/2021 8:06 PM AGENCY LEGAL COUNSEL Result [facility] Kunal Dalton MD LAB BLOOD ORDERABLES Final Result Performing Organization Address [facility] Co de Phone Number [facility] [place] [address] * (ABNORMAL) Troponin I high-sensitivity series (baseline, 2hr, 4hr, 6hr) (05/25/2021 7:56 PM AGENCY LEGAL COUNSEL) Trop I hs 27(H) <=17 ng/L [facility] Comment: Interpretive Data For further hscTnI resources including the diagnostic algorithm and an aid in interpretation, copy and paste this link: https://bjhlab.testcatalog.org/show/hsTrop-1 Current Interpretive Data last revised 2019. Blood 05/25/2021 7:56 PM AGENCY LEGAL COUNSEL 05/25/2021 8:06 PM AGENCY LEGAL COUNSEL Result [facility] Kunal Dalton MD LAB BLOOD ORDERABLES Final Result Performing Organization Address [facility] de Phone Number [facility] [place] [address] * (ABNORMAL) aPTT (05/25/2021 7:56 PM AGENCY LEGAL COUNSEL) aPTT 23(L) 27 - 37 sec [facility] Comment: Code Blue Specimen Interpretive Data Therapeutic heparin range: 60.0 - 94.0 seconds. Based on correlation with therapeutic heparin activity range of 0.3-0.7 Units/mL. Current interpretive data was last revised on 2020. Blood (Blood, Venous) 05/25/2021 7:56 PM AGENCY LEGAL COUNSEL 05/25/2021 8:06 PM AGENCY LEGAL COUNSEL Narrative [facility] - 05/25/2021 8:30 PM AGENCY LEGAL COUNSEL Potential stroke patient. Kunal Dalton MD LAB BLOOD ORDERABLES Final Result Performing Organization Address [facility] Co de Phone Number [facility] [place] [address] * (ABNORMAL) CBC with auto differential (05/25/2021 7:56 PM AGENCY LEGAL COUNSEL) [facility] WBC 9.9 3.8 - 9.9 K/cumm [facility] Comment:Code Blue Specimen Hgb 9.0(L) 11.9 - 15.5 g/dL [facility] Hct 28.6(L) 35.6 - 45.5 % [facility] Plt 240 150 - 400 K/cumm [facility] MPV 9.9 9.1 - 12.3 fL [facility] RBC 3.41(L) 3.90 - 5.20 M/cumm [facility] MCV 83.9 81.3 - 96.4 fL [facility] MCH 26.4(L) 27.1 - 33.3 pg [facility] MCHC 31.5(L) 32.3 - 35.7 g/dL [facility] RDW CV 16.3(H) 11.1 - 14.9 % [facility] RDW SD 50.3(H) 35.7 - 48.1 fL [facility] NRBC abs 0.00 0.00 - 0.01 K/cumm [facility] Blood (Blood, Venous) 05/25/2021 7:56 PM AGENCY LEGAL COUNSEL 05/25/2021 8:06 PM AGENCY LEGAL COUNSEL Narrative [facility] - 05/25/2021 8:13 PM AGENCY LEGAL COUNSEL Potential Stroke Patient us Kunal Dalton MD LAB BLOOD ORDERABLES Final Result [facility] [place] [address] * (ABNORMAL) Basic metabolic panel (05/25/2021 7:56 PM AGENCY LEGAL COUNSEL) [facility] Sodium 136 135 - 145 mmol/L [facility] Comment:Code Blue Specimen Potassium, pl 4.2 3.3 - 4.9 mmol/L [facility] Comment:Code Blue Specimen Chloride 102 97 - 110 mmol/L [facility] Comment:Code Blue Specimen CO2 26 22 - 32 mmol/L [facility] Comment:Code Blue Specimen Anion gap 8 2 - 15 mmol/L [facility] Comment:Code Blue Specimen BUN 29(H) 8 - 25 mg/dL [facility] Comment:Code Blue Specimen Creatinine 1.15(H) 0.60 - 1.10 mg/dL [facility] Comment:Code Blue Specimen Glucose 107 70 - 199 mg/dL [facility] Comment: Code Blue Specimen Interpretive Data Fasting [...] 2017. Calcium 9.1 8.5 - 10.3 mg/dL [facility] Comment:Code Blue Specimen Blood 05/25/2021 7:56 PM AGENCY LEGAL COUNSEL 05/25/2021 8:06 PM AGENCY LEGAL COUNSEL Narrative [facility] - 05/25/2021 8:31 PM AGENCY LEGAL COUNSEL Potential Stroke patient. us Kunal Dalton MD LAB BLOOD ORDERABLES Final Result [facility] [place] [address] * POCT glucose (05/25/2021 7:55 PM AGENCY LEGAL COUNSEL) Glucose, POC 108 70 - 199 mg/dL [facility] Blood 05/25/2021 7:55 PM AGENCY LEGAL COUNSEL 05/25/2021 7:55 PM AGENCY LEGAL COUNSEL us Notinfile Unknown LAB POCT ORDERABLES - DEVICE F inal Result Performing Organization Address [facility]/State/ZIP Co de Phone Number [facility] [place] [address] * POCT prothrombin time, whole blood (05/25/2021 7:53 PM AGENCY LEGAL COUNSEL) PT, POC 12.9 10.6 - 13.5 sec [facility] INR, bld, POC 1.1 0.8 - 1.2 [facility] Blood 05/25/2021 7:53 PM AGENCY LEGAL COUNSEL 05/25/2021 7:53 PM AGENCY LEGAL COUNSEL us David Mitchell MD LAB POCT ORDERABLES - DEVICE Fin al Result [facility] [place] [address] documented in this encounter Visit Diagnoses Diagnosis [...] at 0045 New Bag 05/26/2021 12:38 AM AGENCY LEGAL COUNSEL 75 mL/hr 75 mL/hr docusate sodium (COLACE) [...] at 2106 New Bag 05/25/2021 9:06 PM AGENCY LEGAL COUNSEL 2 Units/hr 1 mL/hr hydrALAZINE (APRESOLINE) injection [...] Left Lower Abdomen Given 05/26/2021 12:55 AM AGENCY LEGAL COUNSEL 6 Units L eft Lower Abdomen insulin [...] 05/25/21 at 2204 Given 05/25/2021 10:04 PM AGENCY LEGAL COUNSEL 70 mL ioversoL (OPTIRAY 350) syringe syringe 125 mL 125 mL, intravenous, Once in imaging, contrast, Starting on 05/25/21 at 2000, For 1 dose Contrast Given 05/25/2021 8:09 PM AGENCY LEGAL COUNSEL 120 mL labetaloL (NORMODYNE,TRANDATE) injection 10 mg [...] Santana RN)1705 (Not Given - Provider: Romina Willosn RN - Reason: Order parameters not met)2115 [...] and calcium products. 0523 (Given - Provider: Troi Cannon RN) 0649 (Given - Provider: Zonia [...] CARE 1 05/25/2021 PHARMACY COMMUNICATION 1 05/25/2021 IT COMPLIANCE ANALYST CONSULT 1 05/25/2021 Transfer Count Last Ordered [...] 05/25/2021 documented in this encounter Care Teams Vfx Artist Relationship Specialty Start Date End Date Ryann Galdamez PA PCP - General Agency Manager 04/02/21 01/22/22 documented as of this encounter
--- OUTSIDE RECORDS SUMMARY | 2024-03-25 11:01 | XMS_ITS | Encounter Summary ---
Author Organization [facility] Medical Group Address [address] [place] [address] Care Team Providers Care Web Operations Lead Name Role Phone Ryann Galdamez Primary Care Provider +1- [phone] Reason for Visit * Reason Onset Date Comments Discuss upcoming surgery ?s 05/13/2021 Encounter Details Date Type Department Care Team (Late st Contact Info) Description 05/13/2021 Telephone [facility] Family Medicine [address] [place] [address] Ryann Galdamez PA [facility] [place] [address] Discuss upcoming surgery ?s Social [...] file 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PRESSING DEPARTMENT Gender Identity Not on file Sexual Orientation Not on file documented as of this encounter Miscellaneous Notes * Telephone Encounter - Ryann Galdamez PA - 05/15/2021 9:17 AM SUPERVISOR PRESSING DEPARTMENT I spoke to patient, expressed my condolences for the loss of her son. She notes that she is doing ok, has been using her xanax bid/prn and will let us know if needing refilled. She states that the celebration of life will be in several weeks. She is planning on a lithotripsy on 05/21/21 [facility] with urology - she has had a conversation with her cardiology office and will be stopping the eliquis 2d prior to the procedure. She notes she isanxious about the procedure but happy to proceed to have answers. She will let us know if we can be of further assistance. RVISOR PRESSING DEPARTMENT * Telephone Encounter - Ryann Galdamez PA - 05/13/2021 2:42 PM SUPERVISOR PRESSING DEPARTMENT I called patient and left message on machine for call back. RVISOR PRESSING DEPARTMENT * Telephone Encounter - Nohemi Calvo - 05/13/2021 9:51 AM CST Prema would like to talk to you regarding her upcoming kidney stone surgery on 05/21/21. She has a couple of questions and would like you to call her. RVISOR PRESSING DEPARTMENT documented in this encounter Plan of Treatment Not on file documented as of this encounter Visit Diagnoses Not on filedocumented in this encounter Care Teams Web Operations Lead Relationship Specialty Start Date End Date Ryann Galdamez PA PCP - General Pound Attendant 04/02/21 01/22/22 documented as of this encounter
--- OUTSIDE RECORDS SUMMARY | 2024-03-25 11:01 | XMS_ITS | Encounter Summary ---
Author Organization [facility] Medical [facility] Address [address] [place] [address] Care Team Providers Care Senior Analyst Market Intelligence Name Role Phone Ryann Galdamez Primary Care Provider +1- [phone] Ryann Galdamez Primary Care Provider +1- [phone] Encounter Details Date Type Department Care Team (Late st Contact Info) Description 03/21/2021 Telephone [facility] Family Medicine [address] [place] [address] Ryann Galdamez PA [facility] [place] [address] Social History Tobacco Use Types [...] on file Legal Sex Female 4:20 AM PLATING ENGINEER Gender Identity Not on file Sexual Orientation Not on file documented as of this encounter Miscellaneous Notes * Telephone Encounter - Ryann Galdamez PA - 03/21/2021 3:35 PM PLATING ENGINEER I spoke with patient and reviewed results from paper copy. Encouraged her to report to the er if symptoms are worsening. She will monitor for constipation with the norco and let us know if having difficulty. Discussed and advised referral for endocrinology for the adrenal nodule - she wants to wait at the current time and discuss in the near future. ING ENGINEER * Telephone Encounter - Elsi Porter MA - 03/21/2021 2:25 PM CST Pt called stating that she got her CT scan results back, but was unable to hear clearly and would like if you could interrupt them for her ING ENGINEER documented in this encounter Plan of Treatment Not on file documented as of this encounter Visit Diagnoses Not on filedocumented in this encounter Care Teams Senior Analyst Market Intelligence Relationship Specialty Start Date End Date Ryann Galdamez PA PCP - General Pin Inserter Regulator 07/16/20 04/01/21 Ryann Galdamez PA PCP - General Pin Inserter Regulator 04/02/21 01/22/22 documented as of this encounter
--- OUTSIDE RECORDS SUMMARY | 2024-03-25 11:01 | XMS_ITS | Encounter Summary ---
Author Organization [employer] [facility] Address [address] [place] [address] Phone Care Team Providers Care Grapple Operator Name Role Phone Ryann Galdamez Primary Care Provider +1- [phone] Encounter Details Date Type Department Care Team (Late st Contact Info) Description 05/15/2021 Telephone [facility] Cardiology [address] Advanced Medicine 8th [place] [address] [place] [address] Cathleen Walker MD [address] [facility] [place] [address] Social History Tobacco Use Types [...] file Legal Sex Female 4:20 AM RADIO TALK SHOW HOST Gender Identity Not on file Sexual Orientation Not on file documented as of this encounter Miscellaneous Notes * Telephone Encounter - Paulina Bright RN - 05/15/2021 2:48 PM RADIO TALK SHOW HOST Spoke w/ pt She understands her BP is at goal w/ the medication She will continue to monitor and call if it changes O TALK SHOW HOST * Telephone Encounter - Cathleen Walker MD - 05/15/2021 2:17 PM CST Agree. Continue to monitor. Provide reassurance. O TALK SHOW HOST * Telephone Encounter - Paulina Bright RN - 05/15/2021 11:43 AM RADIO TALK SHOW HOST Should I call to reassure that ok to have higher BP then go down after meds? I know she has had stress w/ loss of son and pending surgery O TALK SHOW HOST * Telephone Encounter - Yessica Mcknight - 05/15/2021 11:18 AM CST Aaron Pt asking to speak with the nurse regarding her BP. Pt states when she wakes in the morning it is around 147/100 or higher then when she takes her medication it will drop to 125/81 or lower. Pt has been under a lot of stress lately. Please call. O TALK SHOW HOST documented in this encounter Plan of Treatment Not on file documented as of this encounter Visit Diagnoses Not on filedocumented in this encounter Care Teams Grapple Operator Relationship Specialty Start Date End Date Ryann Galdamez PA PCP - General Food Counter Attendant 04/02/21 01/22/22 documented as of this encounter
--- OUTSIDE RECORDS SUMMARY | 2024-03-25 11:01 | XMS_ITS | Encounter Summary ---
Author Organization [facility] Medical Group Address [address] [place] [address] Care Team Providers Care Heat Treat Technician Name Role Phone Ryann Galdamez Primary Care Provider +1- [phone] Reason for Visit * Reason Onset Date Comments CT Prior Auth 03/27/2021 Encounter Details Date Type Department Care Team (Late st Contact Info) Description 03/27/2021 Telephone [facility] Medical [facility] Family Medicine [address] [place] [address] Ryann Galdamez PA [facility] [place] [address] CT Prior Auth Social History [...] on file 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 ET SALES MANAGER * Telephone Encounter - Karoline Cooper LPN - 03/27/2021 11:25 AM MARKET SALES MANAGER Patient has CT on 04/03/2021 -- patient scheduled herself. Precert with [facility] called needing authorization. Advised we will work on this, but no guarantee of approval and patient may have to cancel/rescheudle. They agreed. ET SALES MANAGER documented in this encounter Plan of Treatment Not on file documented as of this encounter Visit Diagnoses Not on filedocumented in this encounter Care Teams Heat Treat Technician Relationship Specialty Start Date End Date Ryann Galdamez PA PCP - General Critical Care Nurse 07/16/20 04/01/21 documented as of this encounter
--- OUTSIDE RECORDS SUMMARY | 2024-03-25 11:01 | XMS_ITS | Encounter Summary ---
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 Gender Identity Not on file Sexual Orientation Not on file documented as of this encounter Miscellaneous Notes * Telephone Encounter - Araceli Carrasquillo RN - 05/30/2021 10:49 AM CDT [facility] d/c home 05/29/21 w/ HC- per [facility] notes: Discharge Disposition Home with Home [...] her at nite- Discharge medication list from [facility] Hospital in [facility]- reviewed and reconciled with current outpatient medications.ing w/ her- wants to know as if should continue her Klor- con 20 meq bid- and wants to discuss as to no xanax- will call pcp today for a f/u- and return to ER for emergent needs- has my phone number- Araceli Carrasquillo RN, BSN [facility] Client Services Account Manager for High Risk [phone] * Telephone Encounter - Araceli Carrasquillo RN - 05/26/2021 2:16 PM CDT [facility]- ER admit 05/25/21 [facility]- per [facility] notes- noticed drooping of the left [...] CYSTOSCOPY WITH POSSIBLE RIGHT RETROGRADE PYELOGRAM?? 05/22/21- [facility] ER-81yo female with PMH HTN, DM, AFib, [...] undetermined- supportive family- Araceli Carrasquillo RN, BSN [facility] Client Services Account Manager for High Risk [phone] documented in this encounter Plan of Treatment Not on file documented as of this encounter Visit Diagnoses Not on filedocumented in this encounter Care Teams Meal Temperer Relationship Specialty Start Date End Date Ryann Galdamez PA PCP - General Finisher Hot Strip 04/02/21 01/22/22 documented as of this encounter
--- OUTSIDE RECORDS SUMMARY | 2024-03-25 11:01 | XMS_ITS | Encounter Summary ---
Author Organization [facility] Medical [facility] Address [address] [place] [address] Care Team Providers Care Sales Representative Aircraft Name Role Phone Ryann Galdamez Primary Care Provider +1- [phone] Reason for Referral * Diagnostic Imaging (Urgent) - Closed Specialty Diagnoses / Procedures Referred By Indra muñoz Referred To Contact Diagnoses Acute cystitis with hematuria Acute left flank pain History of nephrolithiasis Procedures CT Abdomen Pelvis W WO Contrast Ryann Galdamez PA Phone: tel: fax: [address] [address] Phone: tel: Referral ID Status Reason Start Date Expiration Date Visits Re quested Visits Authorized [id number] Closed 03/21/2021 04/20/2022 1 1 APPLIANCE ADJUSTER Reason for Visit * Reason Comments Blood in Urine on and off 2 weeks Encounter Details Date Type Department Care Team (Late st Contact Info) Description 03/21/2021 10:45 AM GAS APPLIANCE ADJUSTER Office Visit [facility] Family Medicine [address] [place] [address] Ryann Galdamez PA [address] [place] [address] Acute cystitis with hematuria (Primary Dx); Acute [...] on file Legal Sex Female 4:20 AM GAS APPLIANCE ADJUSTER Gender Identity Not on file Sexual Orientation Not on file documented as of this encounter Last Filed Vital Signs Vital Sign Reading Time Taken Comments Blood Pressure 110/60 03/21/2021 10:41 AM GAS APPLIANCE ADJUSTER Pulse 104 03/21/2021 10:41 AM GAS APPLIANCE ADJUSTER Temperature 36.7 ??C (98 ??F) 03/21/2021 10:41 AM GAS APPLIANCE ADJUSTER Respiratory Rate 9 03/21/2021 10:41 AM GAS APPLIANCE ADJUSTER Oxygen Saturation 97% 03/21/2021 10:41 AM GAS APPLIANCE ADJUSTER Inhaled Oxygen Concentration - - Weight 72 kg (158 lb 12.8 oz) 03/21/2021 10:41 A M GAS APPLIANCE ADJUSTER Height 157.5 cm (5' 2 ) 03/21/2021 10:41 AM GAS APPLIANCE ADJUSTER Body Mass Index 29.04 03/21/2021 10:41 AM GAS APPLIANCE ADJUSTER documented in this encounter Progress Notes * [...] W WO Contrast STAT Hold and Call [phone] Standing Status: Future Standing Expiration Date: 03/21/2022 [...] Collection Method Answer: Clean Catch RACHID Jenkins APPLIANCE ADJUSTER documented in this encounter Miscellaneous Notes * Assessment & Plan Note - Ryann Galdamez PA - 03/21/2021 12:52 PM GAS APPLIANCE ADJUSTER Associated Problem(s): History of nephrolithiasis Will arrange for stat CT abdomen pelvis without contrast in stat labs today. Will notify patient ofthe results as they become available. She was advised to report to the ER in the interim if symptoms are worsening. APPLIANCE ADJUSTER * Assessment & Plan Note - Ryann Galdamez PA - 03/21/2021 12:52 PM GAS APPLIANCE ADJUSTER Associated Problem(s): Acute left flank pain (Resolved 10/21/2021) Will arrange for stat CT abdomen pelvis without contrast in stat labs today. Will notify patient ofthe results as they become available. She was advised to report to the ER in the interim if symptoms are worsening. APPLIANCE ADJUSTER * Assessment & Plan Note - Ryann Galdamez PA - 03/21/2021 12:51 PM GAS APPLIANCE ADJUSTER Associated Problem(s): Acute cystitis with hematuria (Resolved 10/21/2021) Will arrange for stat CT abdomen pelvis without contrast in stat labs today. Will notify patient ofthe results as they become available. She was advised to report to the ER in the interim if symptoms are worsening. APPLIANCE ADJUSTER documented in this encounter Plan of Treatment [...] reflex to microscopic (03/21/2021) Urine 03/21/2021 Ryann RASHID LAB URINE ORDERABLES Final Result EXTERNAL LAB [...] Units/L EXTERNAL LAB SCRIBED eGFR in NonAfrican Ethiopian 53(A) 60 - 100 EXTERNAL LAB Blood [...] as of this encounter Care Teams Sales Representative Aircraft Relationship Specialty Start Date End Date Ryann Galdamez PA PCP - General Swimmer 07/16/20 04/01/21 documented as of this encounter
--- OUTSIDE RECORDS SUMMARY | 2024-03-25 11:02 | XMS_ITS | Encounter Summary ---
Author Organization [facility] Medical Group Address [address] [place] [address] Care Team Providers Care Administrative Supervisor Name Role Phone Ryann Galdamez Primary Care Provider +1- [phone] Reason for Visit * Reason Onset Date Comments Hyperglycemia 12/10/2020 Encounter Details Date Type Department Care Team (Late st Contact Info) Description 12/10/[address] 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
--- OUTSIDE RECORDS SUMMARY | 2024-03-25 11:02 | XMS_ITS | Encounter Summary ---
Author Organization [facility] Address [address] [place] [address] Phone Care Team Providers Care Tire Curer Name Role Phone Ryann Galdamez Primary Care Provider +1- [phone] Reason for Visit * Consultation (Routine) - Closed Specialty Diagnoses / Procedures Referred By Indra muñoz Referred To Contact Otolaryngology Diagnoses Thyroid nodule Ryann Galdamez PA Phone: tel: fax: Jermaine Martinez MD [address] [place] [address] Phone: tel: fax: Referral ID Status Reason Start Date Expiration Date V isits Requested Visits Authorized [id number] Closed Specialty Services Required 11/12/2020 11/13/2021 12 12 Encounter Details Date Type Department Care Team (Late st Contact Info) Description 12/19/2020 10:20 AM CDT Office Visit [facility] - [facility] ENT [address] [facility] Advanced Medicine 11th [place] [address] [place] [address] Jermaine Martinez MD [address] [place] [address] Thyroid nodule (Primary Dx) Social History Tobacco [...] file 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 HISTORY OF PRESENT ILLNESS: Dear Dr. Galdamez, Thank you for asking me to evaluate Ms. Pearce in the [facility] Otolaryngology - Head and Neck Surgery [...] and Family: Not on file ??? Attends Jehovah[employer] Witness Services: Not on file ??? Active Member [...] US guidance and assistance from the cytopathology ceramics technician, 3 samples were taken from the [...] my office. Warm regards, Jermaine Martinez M.D. [facility] Oncology and Microvascular Reconstruction Department of Otolaryngology - Head & Neck Surgery [facility] documented in this encounter Plan of Treatment Not on file documented as of this encounter Visit Diagnoses Diagnosis Thyroid nodule- Primary Nontoxic uninodular goiter documented in this encounter Orders Outpatient Referral Count Last Ordered Date Fir st Ordered Date AMB REFERRAL TO ENT 1 12/19/2020 documented in this encounter Care Teams Tire Curer Relationship Specialty Start Date End Date Ryann Galdamez PA PCP - General Retail Assistant Manager 07/16/20 04/01/21 documented as of this encounter
--- OUTSIDE RECORDS SUMMARY | 2024-03-25 11:02 | XMS_ITS | Encounter Summary ---
Author Organization [facility] Address [address] [place] [address] Phone Care Team Providers Care Service Order Clerk Name Role Phone Ryann Galdamez Primary Care Provider +1- [phone] Encounter Details Date Type Department Care Team (Late st Contact Info) Description 12/06/2020 Orders Only [facility] Cardiology [address] [facility] Advanced Medicine 8th [place] [address] [place] [address] Cathleen Walker MD [address] [facility] [address] [place], [place] [id number] Acute on chronic systolic CHF (congestive heart [...] file Legal Sex Female 4:20 AM 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 Fasting reference interval For someone without known diabetes, a glucose value >125 mg/dL indicates that they may have diabetes and this should be confirmed with a follow-up test. BUN 14 7 - 25 mg/dL [facility] Creatinine 0.69 0.60 - 0.93 mg/dL [facility] Comment: For patients >49 years of age, the reference limit for Creatinine is approximately 13% higher for people identified as -Palestinian. eGFR NON-AFR. [place] 83 > OR = 60 mL/min/1 .73m2 [facility] EGFR 96 > OR = 60 mL/min/1 .73m2 [facility] BUN/creat ratio NOT APPLICABLE 6 - 22 (calc) [facility] Sodium 137 135 - 146 mmol/L [facility] Potassium, pl 4.7 3.5 - 5.3 mmol/L [facility] Chloride 103 98 - 110 mmol/L [facility] CO2 22 20 - 32 mmol/L [facility] Calcium 9.5 8.6 - 10.4 mg/dL [facility] Blood specimen (specimen) 12/14/2020 9:51 AM CDT 12/14/2020 9:52 AM CDT Cathleen Mccormick MD LAB BLOOD ORDERA BLES Final Result JULIO CÉSAR [employer] [id number] [address] [place] [id number] documented in this encounter Visit Diagnoses Diagnosis [...] documented as of this encounter Care Teams Service Order Clerk Relationship Specialty Start Date End Date Ryann Galdamez PA PCP - General Gang Punch Operator 07/16/20 04/01/21 documented as of this encounter
--- OUTSIDE RECORDS SUMMARY | 2024-03-25 11:02 | XMS_ITS | Encounter Summary ---
Author Organization [facility] Address [address] [place] [address] Phone Care Team Providers Care Clinical Informatics Spec Name Role Phone Ryann Galdamez Primary Care Provider +1- [phone] Encounter Details Date Type Department Care Team (Late st Contact Info) Description 12/06/2020 Telephone [facility] Cardiology [address] [facility] Advanced Medicine 8th [place] [address] [place] [address] Cathleen Walker MD [address] 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
--- OUTSIDE RECORDS SUMMARY | 2024-03-25 11:02 | XMS_ITS | Encounter Summary ---
Author Organization [facility] Address [address] [place] [address] Care Team Providers Care Wall Mirror Department Supervisor Name Role Phone Ryann Galdamez Primary Care Provider +1- [phone] Reason for Visit * Reason Comments Follow-up Encounter Details Date Type Department Care Team (Late st Contact Info) Description 11/29/2020 10:00 AM CDT Office Visit [facility] Family Medicine [address] [facility] [address] [place] [address] Ryann Galdamez PA [facility] [place] [address] Type 2 diabetes mellitus without [...] on file Legal Sex Female 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
--- OUTSIDE RECORDS SUMMARY | 2024-03-25 11:02 | XMS_ITS | Encounter Summary ---
Author Organization [facility] Address [address] [facility] [address] [place] [address] Care Team Providers Care Powder Mixer Name Role Phone Ryann Galdamez Primary Care Provider +1- [phone] Reason for Visit * Reason Onset Date Comments medication question 02/25/2021 Encounter Details Date Type Department Care Team (Late st Contact Info) Description 02/25/2021 Telephone [facility] Family Medicine [address] [place] [address] Ryann Galdamez PA [facility] [place], [place] [id number] medication question Social History Tobacco Use Types [...] on file Legal Sex Female 4:20 AM ACUPRESSURIST Gender Identity Not on file Sexual Orientation [...] on: 02/26/2021 12:55 PM Modules accepted: Orders RESSURIST * Telephone Encounter - Ryann Galdamez PA - 02/26/2021 12:54 PM ACUPRESSURIST I sent a 20mg prescription yesterday, but yes she can take 2 of the 10mg in the meantime. i'm refilling her ambien now. RESSURIST * Telephone Encounter - Raiza Desir MA - 02/26/2021 10:59 AM CST Patient was informed of provider's note. She will need a new script sent out. Should she take 2 of the 10 mg together or split between morning and night? She also needs a refill of Zolpidem also. She would like a 90 script if possible. RESSURIST * Telephone Encounter - Ryann Galdamez PA - 02/25/2021 11:47 AM ACUPRESSURIST Increase prozac to 20mg daily. Ask her to let us know results of this over the next week. RESSURIST * Telephone Encounter - Karoline Cooper LPN - 02/25/2021 11:20 AM ACUPRESSURIST Patient called in regarding prozac 10mg, states it's not working. Wondering about increasing dose or changing meds to something that will help more. Patient's best friend passed 02/23/2021, had a couple weeks to help care for her while on hospice and also having to go through the first sal without her . RESSURIST documented in this encounter Plan of Treatment [...] documented as of this encounter Care Teams Powder Mixer Relationship Specialty Start Date End Date Ryann Galdamez PA PCP - General Accreditation Specialist 07/16/20 04/01/21 documented as of this encounter
--- OUTSIDE RECORDS SUMMARY | 2024-03-25 11:02 | XMS_ITS | Encounter Summary ---
Author Organization [facility] Address [address] [place] [address] Care Team Providers Care Hand Finisher Name Role Phone Ryann Galdamez Primary Care Provider +1- [phone] Encounter Details Date Type Department Care Team (Late st Contact Info) Description 09/13/2020 7:47 AM CDT - 09/13/2020 3:01 PM CDT Hospital Encounter [facility] [address] [place] [address] Cathleen Walker MD [address] [facility] [address] [place] [address] Norma Conrad, DO [address] [place] [address] Abnormal stress echo; Acute on chronic systolic [...] on file 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 Gender Identity Not on file Sexual [...] AORTIC (VALVE) STENOSIS Atherosclerotic heart disease of havasupai coronary artery without angina pectoris - ATHEROSCLEROTIC HEART DISEASE OF [place] CORONARY ARTERY WITHOUT ANGINA PECTORIS Other persistent [...] OTHER DRUGS, MEDICAMENTS AND BIOLOGICAL SUBSTANCES Other [facility] (current) drug therapy - OTHER SENIOR LIVING (CURRENT) DRUG THERAPY nursing home (current) use of anticoagulants - HEALTH COACH (CURRENT) USE OF ANTICOAGULANTS Long-term (current) use of anticoagulants roasterman (current) use of oral hypoglycemic drugs - SENIOR LIVING (CURRENT) USE OF ORAL HYPOGLYCEMIC DRUGS nursing home (current) use of aspirin - HEALTH COACH (CURRENT) USE OF ASPIRIN documented in this [...] M-F call our Outpatient Nurse Coordinators at [phone]. If you need to speak to someone after 5pm please call [facility] at [phone] and ask the continuous dryout operator helper topage the Cardiac Bottoming Room Supervisor Fellow electrical automation engineer. documented in this encounter Medications at Time [...] negative Sedation Plan: Moderate Braulio Orourke MD Doggy Daycare Activities Director [facility] Cosigned by Norma Conrad DO at 09/13/2020 10:16 AM CDT * Pre-Cardiac Catheterization Workup and H&P - Jadiel Brice RN - 09/11/2020 3:31 PM CDT PRE-CARDIAC CATHETERIZATION WORKUP Patient Name: Prema Pearce Patient Patient : 1940 Date of Procedure: 09/13/2020 ORDERING EMBROIDERY WORKER: Surgeon(s): Sobia RussoDisposal ManMD Procedure(s): LEFT HEART CATHETERIZATION WITH CORONARY ANGIOGRAPHY AND WITH OR WITHOUT LEFT VENTRICULOGRAM [id number] Requested Diagnostic: [] Coronary Angiograms Only [x] [...] Yes [] No [] Contraindicated Indications for Bottoming Room Supervisor visit (Select all that apply): [] ACS [...] ESRD [] Dialysis [] HD []PD: Prior MA: [] Yes [x] No If Yes, Most Recent MA Date: Tobacco Use Social History Tobacco Use [...] 0.73 0.60 - 0.93 mg/dL eGFR NON-AFR. [place]THER[place] 78 > OR = 60 mL/min/1.73m2 EGFR [...] Yes, Newly Diagnosed: [] Yes [] No [facility] Class: [] Class I [] Class II [...] and Assessment Completed by: Braulio Orourke MD Doggy Daycare Activities Director [facility] Cosigned by Norma [...] CDT Cardiac Catheterization Report, Left Heart Facility: [facility] Referring Physician: Cathleen Walker MD Performing: [...] local anesthesia; modified Seldinger technique; micropuncture technique; 5-Thai 12 cm sheath, right femoral artery. ?? [...] There is no significant obstruction of the havasupai coronary arteries. ?? There is, however, significant tortuosity of the coronary vessels, suggestive of hypertensive heart disease. THERAPEUTIC RECOMMENDATIONS Findings of the catheterization were discussed with the patient and will be conveyed to the referring physician who will determine the patient's future therapy and follow-up. ?? Conscious sedation note: I provided direct [id number] monitoring of conscious sedation, which was administered by an independent, trained nurse using fentanyl and midazolam for 28 minutes. Norma Conrad DO Sign Fabricator Division of Cardiology [facility] Cathleen Mccormick MD CV CARDIAC CATH PROCEDURES Final Result * (ABNORMAL) CBC without differential (09/13/2020 10:54 AM CDT) WBC 6.1 3.8 - 9.9 K/cumm [facility] Hgb 11.1(L) 11.9 - 15.5 g/dL [facility] Hct 35.5(L) 35.6 - 45.5 % [facility] Plt 254 150 - 400 K/cumm [facility] MPV 10.3 9.1 - 12.3 fL [facility] RBC 3.84(L) 3.90 - 5.20 M/cumm [facility] MCV 92.4 81.3 - 96.4 fL [facility] MCH 28.9 27.1 - 33.3 pg [facility] MCHC 31.3(L) 32.3 - 35.7 g/dL [facility] RDW CV 15.7(H) 11.1 - 14.9 % [facility] RDW SD 53.1(H) 35.7 - 48.1 fL [facility] NRBC abs 0.00 0.00 - 0.01 K/cumm [facility] Blood specimen (specimen) 09/13/2020 10:54 AM CDT 09/13/2020 11:05 AM CDT Narrative [facility] - 09/13/2020 11:15 AM CDT To be drawn after hydration bolus complete us Norma Conrad DO LAB BLOOD ORDERABLE S Final Result Performing Organization Address [facility] Co de Phone Number [facility] Department [place] [address] * POCT glucose (09/13/2020 9:54 AM CDT) Pathologist [facility] Glucose, POC 162 70 - 199 mg/dL [facility] Blood specimen (specimen) 09/13/2020 9:54 AM CDT 09/13/2020 9:54 AM CDT Cathleen Mccormick MD LAB POCT ORDERAB LES - DEVICE Final Result Performing Organization Address [facility] Co de Phone Number [facility] [place] [address] * ECG 12 lead (09/13/2020 9:50 AM CDT) [facility] Signature Ventricular Rate EKG/Min 76 BPM [facility] Atrial Rate 72 BPM [facility] QRS-Interval (MSEC) 106 ms [facility] QT-Interval (MSEC) 386 ms [facility] QTc 434 ms [facility] R [place] 53 degrees [facility] T [place] 19 degrees [facility] Diagnosis Atrial fibrillation Nonspecific T wave abnormality Abnormal ECG When compared with ECG of 29-MAY-2019 21:27, anterior T wave abnormalities have improved Confirmed by BRAULIO HAMM M.D ([id number]) on 09/13/2020 4:08:12 PM [facility] 09/13/2020 9:50 AM CDT 09/13/2020 4:08 PM CDT us Norma Yanesminalesha DO ECG ORDERABLES Fin al Result Performing Organization Address [facility] Co de Phone Number [facility] documented in this encounter Visit Diagnoses [...] 09/13/2020 documented in this encounter Care Teams Hand Finisher Relationship Specialty Start Date End Date Ryann Galdamez PA PCP - General Application Development Specialist 07/16/20 04/01/21 documented as of this encounter
--- OUTSIDE RECORDS SUMMARY | 2024-03-25 11:02 | XMS_ITS | Encounter Summary ---
Author Organization [facility] Address [address] [place] [address] Care Team Providers Care Senior Living Advisor Name Role Phone Ryann Galdamez Primary Care Provider +1- [phone] Reason for Visit * Reason Comments Follow-up Encounter Details Date Type Department Care Team (Late st Contact Info) Description 12/27/2020 10:30 AM CDT Office Visit [facility] Family Medicine [address] [place] [address] Ryann Galdamez PA Formerly [facility] [place], [place] [id number] Episode of recurrent major depressive disorder, unspecified [...] on file 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) (HCC) (E11.9) Assessment & Plan: Fasting labs [...] Referral Reason: Specialty Services Required Referral Location: [facility] Referred to Provider: Froy Roper [...] Notes * Assessment & Plan Note - yRann Galdamez PA - 12/27/2020 12:53 PM CDT [...] current use of insulin ([facility]) ([facility]) Fatigue, unspecified type VITAMIN D 25 HYDROXY Routine 12/27/2020 11:50 AM CDT Fatigue, unspecified type Vitamin D deficiency TSH Routine 12/27/2020 11:50 AM CDT Fatigue, unspecified type Hypothyroidism, unspecified type T4, FREE Routine 12/27/2020 11:50 AM CDT Fatigue, unspecified type Hypothyroidism, unspecified type HEMOGLOBIN A1C Routine 12/27/2020 11:50 AM CDT Type 2 diabetes mellitus without complication, without long-term current use of insulin ([facility]) (HCC) Fatigue, unspecified type VITAMIN B12 Routine 12/27/2020 11:50 AM CDT Fatigue, unspecified type COMPREHENSIVE METABOLIC PANEL Routine 12/27/2020 11:50 AM CDT Type 2 diabetes mellitus without complication, without long-term current use of insulin ([facility]/HCC) (HCC) Fatigue, unspecified type documented in this [...] LAB URINE ORDERABLES Final Result [facility] [address] [address] * Vitamin B12 (12/27/2020 11:50 AM CDT) Vitamin B12 550 200 - 1,100 pg/mL [facility] Blood specimen (specimen) 12/27/2020 11:50 AM CDT 12/27/2020 11:51 AM CDT Narrative [facility] - 12/28/2020 2:51 PM CDT FASTING:NO FASTING: NO Ryann RASHID LAB BLOOD ORDERABLES Final Result Performing Organization Address City/[facility]/ZIP Co de Phone Number [facility] [address] [address] [address] * Vitamin D 25 hydroxy (12/27/2020 11:50 AM CDT) [facility] Vitamin D 25-OH 47 30 - 100 ng/mL [facility] Comment: Vitamin D Status ? 25-OH Vitamin D: Deficiency: ?<20 ng/mL Insufficiency: ? 20 - 29 ng/mL Optimal: ? > or = 30 ng/mL For 25-OH Vitamin D testing on patients on D2-supplementation and patients for whom quantitation of D2 and D3 fractions is required, the QuestAssureD(TM) 25-OH VIT D, (D2,D3), LC/MS/MS is recommended: order code 92118 (patients >2yrs). See Note 1 Note 1 For additional information, please refer to http://education.StoreDot/faq/PPV800 (This link is being provided for informational/ educational purposes only.) Blood specimen (specimen) 12/27/2020 11:50 AM CDT 12/27/2020 11:51 AM CDT Narrative [facility] - 12/28/2020 2:51 PM CDT FASTING:NO FASTING: NO Ryann RASHID LAB BLOOD ORDERABLES Final Result Performing Organization Address City/[facility]/ZIP Co de Phone Number [facility] [address] [address] [address] * T4, free (12/27/2020 11:50 AM CDT) [facility] Free T4 1.5 0.8 - 1.8 ng/dL [facility] Blood specimen (specimen) 12/27/2020 11:50 AM CDT 12/27/2020 11:51 AM CDT Narrative [facility] - 12/28/2020 2:51 PM CDT FASTING:NO FASTING: NO Ryann RASHID LAB BLOOD ORDERABLES Final Result Performing Organization Address [facility] Co de Phone Number [facility] [address] [place] [address] * TSH (12/27/2020 11:50 AM CDT) Pathologist [facility] TSH 1.53 0.40 - 4.50 mIU/L [facility] Blood specimen (specimen) 12/27/2020 11:50 AM CDT 12/27/2020 11:51 AM CDT Narrative [facility] - 12/28/2020 2:51 PM CDT FASTING:NO FASTING: NO Ryann RASHID LAB BLOOD ORDERABLES Final Result Performing Organization Address [facility] de Phone Number [facility] [address] [place] [address] * (ABNORMAL) Hemoglobin A1c (12/27/2020 11:50 AM CDT) Pathologist [facility] Hgb A1C 6.5(H) <5.7 % of total Hgb [facility] Blood specimen (specimen) 12/27/2020 11:50 AM CDT 12/27/2020 11:51 AM CDT Narrative [facility] - 12/28/2020 2:51 PM CDT FASTING:NO FASTING: NO Ryann RASHID LAB BLOOD ORDERABLES Final Result Performing Organization Address City/[facility]/ZIP Co de Phone Number [facility] [address] [address] * (ABNORMAL) Comprehensive metabolic panel (12/27/2020 11:50 AM CDT) [facility] Glucose 180(H) 65 - 139 mg/dL [facility] Comment: ? Non-fasting reference interval BUN 19 7 - 25 mg/dL [facility] Creatinine 0.78 0.60 - 0.93 mg/dL [facility] Comment: For patients >49 years of age, the reference limit for Creatinine is approximately 13% higher for people identified as -[place]. eGFR NON-AFR. MONTSERRATIAN 72 > OR = 60 mL/min/1 .73m2 [facility] EGFR 84 > OR = 60 mL/min/1 .73m2 [facility] BUN/creat ratio NOT APPLICABLE 6 - 22 (calc) [facility] Sodium 138 135 - 146 mmol/L [facility] Potassium, pl 4.6 3.5 - 5.3 mmol/L [facility] Chloride 104 98 - 110 mmol/L [facility] CO2 27 20 - 32 mmol/L [facility] Calcium 9.9 8.6 - 10.4 mg/dL [facility] Protein, sr 6.8 6.1 - 8.1 g/dL [facility] Albumin 4.4 3.6 - 5.1 g/dL [facility] GLOBULIN 2.4 1.9 - 3.7 g/dL (calc) [facility] Alb/glob ratio 1.8 1.0 - 2.5 (calc) [facility] Bilirubin, total 0.6 0.2 - 1.2 mg/dL [facility] Alk phos 122 37 - 153 U/L [facility] AST 17 10 - 35 U/L [facility] ALT (SGPT) 14 6 - 29 U/L [facility] Blood specimen (specimen) 12/27/2020 11:50 AM CDT 12/27/2020 11:51 AM CDT Narrative [facility] - 12/28/2020 2:51 PM CDT FASTING:NO FASTING: NO us Ryann RASHID LAB BLOOD ORDERABLES Final Result [facility] [address] [address] [address] * CBC with auto differential (12/27/2020 11:50 AM CDT) Pathologist [facility] WBC 7.4 3.8 - 10.8 Thousand/u L [facility] RBC, POC 3.98 3.80 - 5.10 Million/uL [facility] Hgb 11.9 11.7 - 15.5 g/dL [facility] Hct 37.1 35.0 - 45.0 % [facility] MCV 93.2 80.0 - 100.0 fL [facility] MCH 29.9 27.0 - 33.0 pg [facility] MCHC 32.1 32.0 - 36.0 g/dL [facility] Rdw 13.5 11.0 - 15.0 % [facility] Platelets 303 140 - 400 Thousand/u L [facility] MPV 10.7 7.5 - 12.5 fL [facility] Neutrophils, abs 5,276 1,500 - 7,800 cells/uL [facility] Lymphocytes, abs 1,576 850 - 3,900 cells/uL [facility] Monocyte abs 422 200 - 950 cells/uL [facility] Eosinophils, abs 96 15 - 500 cells/uL [facility] Basophils, abs 30 0 - 200 cells/uL [facility] Neutrophils 71.3 % [facility] Lymphocyte pct 21.3 % [facility] Monocytes 5.7 % [facility] Eosinophils 1.3 % [facility] Basophils 0.4 % [facility] Blood specimen (specimen) 12/27/2020 11:50 AM CDT 12/27/2020 11:51 AM CDT Narrative [facility] - 12/28/2020 2:51 PM CDT FASTING:NO FASTING: NO Ryann RASHID LAB BLOOD ORDERABLES Final Result [facility] [address] [place] [address] documented in this encounter Visit Diagnoses Diagnosis Episode of recurrent major depressive disorder, unspecified depression episode severity (HCC)- Primary Anxiety Anxiety state, unspecified Type 2 diabetes mellitus without complication, without long-term current use of insulin ([facility]/HCC) (HCC) Obesity (BMI 30-39.9) BMI 32.0-32.9,adult Fatigue, [...] as of this encounter Care Teams Senior Living Advisor Relationship Specialty Start Date End Date Ryann Galdamez PA PCP - General Slurry Control Tender 07/16/20 04/01/21 documented as of this encounter
--- OUTSIDE RECORDS SUMMARY | 2024-03-25 11:02 | XMS_ITS | Encounter Summary ---
Author Organization [facility] Address [address] [place] [address] Phone Care Team Providers Care Lockstitch Cup Setter Name Role Phone Ryann Galdamez Primary Care Provider +1- [phone] Encounter Details Date Type Department Care Team (Late st Contact Info) Description 12/19/2020 Orders Only [facility] ([facility]) - [facility] ENT [address] Advanced Medicine [address] [place] [address] [place] [address] Jermaine Matrinez MD [address] [place], [place] [id number] Social History Tobacco Use Types Packs/Day Years [...] on file 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 Service: Laboratory Location: [facility] Physician(s): ??Jermaine Martinez M.D FINAL DIAGNOSIS A. [...] Surgical Pathology and Flow Cytometry Departments at [facility] as part of an ongoing manufacturing quality engineer program and in compliance with federally mandated [...] Surgical Pathology and Flow Cytometry Departments of [facility]. ??It has not been cleared or approved by the U. S. Food and Drug Administration. Jermaine Martinez MD LAB CYTOLOGY ORDERABLES Fi nal Result documented in this encounter Visit Diagnoses Not on filedocumented in this encounter Care Teams Lockstitch Cup Setter Relationship Specialty Start Date End Date Ryann Galdamez PA PCP - General Horticultural Manager 07/16/20 04/01/21 documented as of this encounter
--- OUTSIDE RECORDS SUMMARY | 2024-03-25 11:02 | XMS_ITS | Encounter Summary ---
Author Organization [facility] Address [address] [place] [address] Care Team Providers Care Public Health Inspector Name Role Phone Ryann Galdamez Primary Care Provider +1- [phone] Encounter Details Date Type Department Care Team (Late st Contact Info) Description 12/17/2020 Telephone [facility] Family Medicine [address] [place] [address] Ryann Galdamez PA [facility] [place] [address] Social History Tobacco Use Types [...] on file 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
--- OUTSIDE RECORDS SUMMARY | 2024-03-25 11:02 | XMS_ITS | Encounter Summary ---
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
--- OUTSIDE RECORDS SUMMARY | 2024-03-25 11:02 | XMS_ITS | Encounter Summary ---
Author Organization [facility] Address [address] [place] [address] Care Team Providers Care Core Blower Name Role Phone Ryann Galdamez Primary Care Provider +1- [phone] Reason for Referral * Diagnostic Imaging (Routine) - Closed Specialty Diagnoses / Procedures Referred By Indra t Referred To Contact Diagnoses Rib pain on left side Procedures XR Ribs Left 2 Views Ryann Galdamez PA Phone: tel: fax: Unknown Place of Service fax: Referral ID Status Reason Start Date Expiration Date Visits Re quested Visits Authorized [id number] Closed 09/04/2020 10/04/2021 1 1 Reason for Visit * Reason Comments Chest Wall Pain Encounter Details Date Type Department Care Team (Late st Contact Info) Description 09/04/2020 10:45 AM CDT Office Visit [facility] Family Medicine [address] [place] [address] Ryann Galdamez PA [facility] [place] [address] Rib pain on left side (Primary Dx); Obesity (BMI 30-39.9); Type 2 diabetes mellitus without complication, without long-term current use of insulin ([facility]); Dyspnea, unspecified type Social History Tobacco Use [...] on file 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 Will continue with metformin. We reviewed recent labs, encouraged hgb a1c of 6.0%. Encouraged healthier eating habits. Dyspnea, unspecified type (R06.00) Assessment & Plan: Currently being evaluated by leather etcher, cardiac cath pending. Will also refer to line crew supervisor for further evaluation and treatment. Orders: - [...] Referral Reason: Specialty Services Required Referral Location: [facility] Referred to Provider: Oswaldo Lopez [...] * Assessment & Plan Note - Ryann yAala PA - 09/04/2020 12:18 PM CDT Associated Problem(s): Dyspnea (Resolved 02/13/2022) Currently being evaluated by leather etcher, cardiac cath pending. Will also refer to line crew supervisor for further evaluation and treatment. * Assessment [...] complication, without long-term current use of insulin ([facility]) ([facility]) Dyspnea, unspecified type documented in this encounter Discontinued Medications Medication Sig Discontinue Reason Start Date End Da te buPROPion XL (WELLBUTRIN XL) 150 mg 24 hr tablet Take 1 tablet (150 mg total) by mouth every morning 08/21/2020 09/04/2020 documented as of this encounter Care Teams Core Blower Relationship Specialty Start Date End Date Ryann Galdamez PA PCP - General Digital Color Press Operator 07/16/20 04/01/21 documented as of this encounter
--- OUTSIDE RECORDS SUMMARY | 2024-03-25 11:02 | XMS_ITS | Encounter Summary ---
Author Organization [facility] Address [address] [place] [address] Care Team Providers Care Spine Nurse Name Role Phone Ryann Galdamez Primary Care Provider +1- [phone] Reason for Referral * Consultation (Routine) - Closed Specialty Diagnoses / Procedures Referred By Indra muñoz Referred To Contact Otolaryngology Diagnoses Thyroid nodule Ryann Galdamez PA Phone: tel: fax: Osvaldo Martinez MD [address] [place] [address] Phone: tel: fax: Referral ID Status Reason Start Date Expiration Date V isits Requested Visits Authorized [id number] Closed Specialty Services Required 11/12/2020 11/13/2021 12 12 Question Answer Please select the performing region: [facility] (All Locations) [167] To provider: OSVALDO MARTINEZ [[id number]] # of visits: 1 * Diagnostic Imaging (Routine) - Closed Specialty Diagnoses / Procedures Referred By Contfred t Referred To Contact Diagnoses Thyroid nodule Procedures US Soft Tissue Neck Ryann Galdamez PA Phone: tel: fax: Unknown Place of Service fax: Referral ID Status Reason Start Date Expiration Date Visits Re quested Visits Authorized [id number] Closed 11/12/2020 12/12/2021 1 1 Reason for Visit * Reason Comments Follow-up Encounter Details Date Type Department Care Team (Late st Contact Info) Description 11/12/2020 3:30 PM CDT Office Visit [facility] Family Medicine [address] [place] [address] Ryann Galdamez PA [facility] [place] [address] Type 2 diabetes mellitus without complication, without [...] on file 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 Median nerve intact bilaterally. Truant Officer strength symmetric bilaterally. Negative tinel's and phalen's [...] complication, without long-term current use of insulin ([facility]/H[facility]) (HCC) (E11.9) (Primary) Assessment & Plan: Increase [...] Referral Reason: Specialty Services Required Referral Location: [facility] (All Locations) Referred to Provider: Osvaldo [...] complication, without long-term current use of insulin ([facility]/HCC) (HCC)- Primary Carpal tunnel syndrome of left [...] 01/04/2021 added in this encounter Care Teams Spine Nurse Relationship Specialty Start Date End Date Ryann Galdamez PA PCP - General Liquid Fertilizer Servicer 07/16/20 04/01/21 documented as of this encounter
--- OUTSIDE RECORDS SUMMARY | 2024-03-25 11:02 | XMS_ITS | Encounter Summary ---
Author Organization [facility] Address [address] [place] [address] Care Team Providers Care Actuarial Internship Name Role Phone Ryann Galdamez Primary Care Provider +1- [phone] Reason for Visit * Reason Onset Date Comments Medication questions 11/01/2020 Encounter Details Date Type Department Care Team (Late st Contact Info) Description 11/01/2020 Telephone [facility] Family Medicine [address] [place] [address] Ryann Galdamez PA [facility] [place] [address] Medication questions Social History Tobacco [...] on file 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
--- OUTSIDE RECORDS SUMMARY | 2024-03-25 11:02 | XMS_ITS | Encounter Summary ---
Author Organization [facility] Address [address] [place] [address] Care Team Providers Care Stroke Belt Sander Operator Name Role Phone Ryann Galdamez Primary Care Provider +1- [phone] Reason for Visit * Reason Comments Diabetes Depression Encounter Details Date Type Department Care Team (Late st Contact Info) Description 02/05/2021 10:15 AM THEATER COMPANY PRODUCER Office Visit [facility] Family Medicine [address] [place] [address] Ryann Galdamez PA [facility] [place] [address] Episode of recurrent major depressive [...] on file Legal Sex Female 4:20 AM THEATER COMPANY PRODUCER Gender Identity Not on file Sexual Orientation Not on file documented as of this encounter Last Filed Vital Signs Vital Sign Reading Time Taken Comments Blood Pressure 102/84 02/05/2021 10:24 AM THEATER COMPANY PRODUCER Pulse 64 02/05/2021 10:24 AM THEATER COMPANY PRODUCER Temperature - - Respiratory Rate 18 02/05/2021 10:24 AM THEATER COMPANY PRODUCER Oxygen Saturation 98% 02/05/2021 10:24 AM THEATER COMPANY PRODUCER Inhaled Oxygen Concentration - - Weight 75.3 kg (166 lb) 02/05/2021 10:24 AM THEATER COMPANY PRODUCER Height 157.5 cm (5' 2 ) 02/05/2021 10:24 AM THEATER COMPANY PRODUCER Body Mass Index 30.36 02/05/2021 10:24 AM THEATER COMPANY PRODUCER documented in this encounter Ordered Prescriptions Prescription [...] complication, without long-term current use of insulin ([facility]) ([facility]) (E11.9) Assessment & Plan: Stable, continue meds same at this time Tremor (R25.1) Assessment & Plan: We discussed that her symptoms of tremor in her upper chest are more likely associated with her afib history. She was advised to contact her overhauler if these symptoms continue. We discussed a neurology evaluation for tremor of hands - she declines at this time. Other orders - FLUoxetine (PROzac) 10 mg tablet/capsule; Take 1 tablet/capsule (10 mg total) by mouth daily Orders Placed This Encounter ??? FLUoxetine (PROzac) 10 mg tablet/capsule Sig: Take 1 tablet/capsule (10 mg total) by mouth daily Dispense: 30 tablet/capsule Refill: 1 RACHID Jenkins [employer] PRODUCER documented in this encounter Miscellaneous Notes * Assessment & Plan Note - Ryann Galdamez PA - 02/05/2021 5:42 PM THEATER COMPANY PRODUCER Associated Problem(s): Tremor (Deleted) We discussed that her symptoms of tremor in her upper chest are more likely associated with her afib history. She was advised to contact her overhauler if these symptoms continue. We discussed a neurology evaluation for tremor of hands - she declines at this time. [employer] PRODUCER * Assessment & Plan Note - Ryann Galdamez PA - 02/05/2021 5:42 PM THEATER COMPANY PRODUCER Associated Problem(s): Type 2 diabetes mellitus without complications (CMS/HCC) (HCC) Stable, continue meds same at this time [employer]UCER * Assessment & Plan Note - Ryann Galdamez PA - 02/05/2021 5:41 PM THEATER COMPANY PRODUCER Associated Problem(s): AYAD on CPAP Continue with prn ambien [employer] PRODUCER * Assessment & Plan Note - Ryann Galdamez PA - 02/05/2021 5:41 PM THEATER COMPANY PRODUCER Associated Problem(s): Moderate episode of recurrent major depressive disorder (HCC) Add prozac every day, continue with prn xanax [employer]ER * Assessment & Plan Note - Ryann Galdamez PA - 02/05/2021 5:41 PM THEATER COMPANY PRODUCER Associated Problem(s): Anxiety (Resolved 03/03/2023) Add prozac every day, continue with prn xanax [employer] documented in this encounter Plan of Treatment Not on file documented as of this encounter Visit Diagnoses Diagnosis Episode of recurrent major depressive disorder, unspecified depression episode severity (HCC)- Primary Sleep disturbance Unspecified sleep disturbance Anxiety Anxiety state, unspecified Type 2 diabetes mellitus without complication, without long-term current use of insulin ([facility]/HCC) (HCC) Tremor Abnormal involuntary movements documented in this encounter Discontinued Medications Medication Sig Discontinue Reason Start Date End Da te PARoxetine (PAXIL) 10 mg tabletIndications:Episod e of recurrent major depressive disorder, unspecified depression episode severity (HCC),Anxiety Take 1 tablet (10 mg total) by mouth every morning Alternate therapy 01/17/2021 02/05/2021 documented as of this encounter Care Teams Stroke Belt Sander Operator Relationship Specialty Start Date End Date Ryann Galdamez PA PCP - General Special Procedures Technologist 07/16/20 04/01/21 documented as of this encounter
--- OUTSIDE RECORDS SUMMARY | 2024-03-25 11:02 | XMS_ITS | Encounter Summary ---
Author Organization [facility] Address [address] [place] [address] Phone Care Team Providers Care Bonded Strand Operator Name Role Phone Ryann Galdamez Primary Care Provider +1- [phone] Reason for Referral * Consultation (Routine) - Closed Specialty Diagnoses / Procedures Referred By Contac t Referred To Contact Cardiology Diagnoses Acute on chronic systolic CHF (congestive heart failure) (CMS/HCC) (HCC) Atrial fibrillation, unspecified type (HCC) Ryann Galdamez PA Phone: tel: fax: [facility] (All Locations) Referral ID Status Reason Start Date Expiration Date V isits Requested Visits Authorized [id number] Closed Specialty Services Required 10/31/2020 11/30/2021 6 6 Question Answer Please select the performing region: [facility] (All Locations) [[id number]] # of visits: 1 Reason for Visit * Reason Comments Follow-up * Consultation (Routine) - Closed Specialty Diagnoses / Procedures Referred By Contac t Referred To Contact Cardiology Diagnoses Acute on chronic systolic CHF (congestive heart failure) (CMS/HCC) (HCC) Atrial fibrillation, unspecified type (HCC) Ryann Galdamez PA Phone: tel: fax: [facility] (All Locations) Referral ID Status Reason Start Date Expiration Date V isits Requested Visits Authorized [id number] Closed Specialty Services Required 10/31/2020 11/30/2021 6 6 Encounter Details Date Type Department Care Team (Late st Contact Info) Description 11/16/2020 11:00 AM CDT Office Visit [facility] Cardiology [address] [facility] [address] [place] [address] Racquel Abebe, [employer] [address] [facility] [facility] [place] [id number] Acute on chronic systolic CHF (congestive heart [...] file Legal Sex Female 4:20 AM GENERAL INTERNIST Gender Identity Not on file Sexual Orientation [...] Primary care Physician Ryann Ayala PA [address] [place] [id number] Patient Name: Prema Pearce Date of : [...] stenosis, moderate 4. Moderate CAD on 08/2020 [facility] 5. Submassive pulmonary embolism 05/2019, [...] at the [facility] in [place] for follow-up on her exertional dyspnea. Her assembler chassis is Dr. Cathleen Walker. At her last [...] is well controlled. No changes. Racquel Abebe, [facility]- CC: Ryann Ayala PA [address] [facility] [address] Cosigned by Cathleen Walker MD at 11/21/2020 [...] for people identified as -[place]. eGFR NON-AFR. ESTONIAN 54(L) > OR = 60 mL/min/1. 73m2 [...] 11/29/2020 11:34 AM CDT us Racquel Abebe [employer] LAB BLOOD ORDERABLES Final R esult [facility] [address] [place] [address] documented in this encounter Visit Diagnoses Diagnosis [...] documented as of this encounter Care Teams Bonded Strand Operator Relationship Specialty Start Date End Date Ryann Galdamez PA PCP - General Seasonal Driver 07/16/20 04/01/21 documented as of this encounter
--- OUTSIDE RECORDS SUMMARY | 2024-03-25 11:02 | XMS_ITS | Encounter Summary ---
Author Organization [facility] Address [address] [place] [address] Care Team Providers Care Balance Truing Inspector Name Role Phone Ryann Galdamez Primary Care Provider +1- [phone] Reason for Visit * Reason Comments Follow-up Encounter Details Date Type Department Care Team (Late st Contact Info) Description 10/29/2020 11:00 AM CDT Office Visit [facility] Family Medicine [address] [place] [address] Ryann Galdamez PA [address] [place] [address] Type 2 diabetes mellitus without [...] file Legal Sex Female 4:20 AM TESTER OPERATOR HELPER Gender Identity Not on file [...] complication, without long-term current use of insulin ([facility]) (HCC) (E11.9) (Primary) Assessment & Plan: Discontinue [...] major depressive disorder, unspecified depression episode severity ([facility]) (F33.9) Assessment & Plan: Increase wellbutrin, continue [...] documented as of this encounter Care Teams Balance Truing Inspector Relationship Specialty Start Date End Date Ryann Galdamez PA PCP - General Bailer Tenders Supervisor 07/16/20 04/01/21 documented as of this encounter
--- OUTSIDE RECORDS SUMMARY | 2024-03-25 11:02 | XMS_ITS | Encounter Summary ---
Author Organization [facility] Address [address] [place] [address] Care Team Providers Care Calliope Player Name Role Phone Ryann Galdamez Primary Care Provider +1- [phone] Reason for Visit * Reason Comments Follow-up Encounter Details Date Type Department Care Team (Late st Contact Info) Description 09/18/2020 1:30 PM CDT Office Visit [facility] Family Medicine [address] [place] [address] Ryann Galdamez PA [facility] [place] [address] Anxiety (Primary Dx); Obesity (BMI [...] on file Legal Sex Female 4:20 AM TEST CENTER ADMINISTRATOR Gender Identity Not on file Sexual [...] 11/22/2020 added in this encounter Care Teams Calliope Player Relationship Specialty Start Date End Date Ryann Galdamez PA PCP - General Speech Communication Instructor 07/16/20 04/01/21 documented as of this encounter
--- OUTSIDE RECORDS SUMMARY | 2024-03-25 11:02 | XMS_ITS | Encounter Summary ---
Author Organization [facility] Address [address] [place] [address] Phone Care Team Providers Care Railroad Worker Name Role Phone Ryann Galdamez Primary Care Provider +1- [phone] Encounter Details Date Type Department Care Team (Late st Contact Info) Description 09/21/2020 Telephone [facility] Cardiology [address] 8th [place] [address] [place] [address] Cathleen Walker MD [address] [place] [address] Social History Tobacco Use Types [...] on file Legal Sex Female 4:20 AM PERSONNEL SECURITY SPECIALIST Gender Identity Not on file Sexual [...] on filedocumented in this encounter Care Teams Railroad Worker Relationship Specialty Start Date End Date Ryann Galdamez PA PCP - General Conditioning Machine Operator 07/16/20 04/01/21 documented as of this encounter
--- OUTSIDE RECORDS SUMMARY | 2024-03-25 11:02 | XMS_ITS | Encounter Summary ---
Author Organization [facility] Address [address] [place] [address] Care Team Providers Care Casing Inspector Name Role Phone Ryann Galdamez Primary Care Provider +1- [phone] Encounter Details Date Type Department Care Team (Late st Contact Info) Description 11/22/2020 Orders Only [facility] Family Medicine [address] [place] [address] Ryann Galdamez PA [address] [place] [address] Social History Tobacco Use Types [...] file Legal Sex Female 4:20 AM TALENT SPECIALIST Gender Identity Not on file Sexual [...] as of this encounter Care Teams Casing Inspector Relationship Specialty Start Date End Date Ryann Galdamez PA PCP - General Tank Inspector 07/16/20 04/01/21 documented as of this encounter
--- OUTSIDE RECORDS SUMMARY | 2024-03-25 11:02 | XMS_ITS | Encounter Summary ---
Author Organization [facility] Address [address] [place] [address] Care Team Providers Care Regional Maintenance Manager Name Role Phone Ryann Galdamez Primary Care Provider +1- [phone] Reason for Visit * Reason Comments Urinary Symptom blood in urine, unco mfortable Review Medications Encounter Details Date Type Department Care Team (Late st Contact Info) Description 03/12/2021 11:00 AM REPTILE FARMER Office Visit [facility] Medical [facility] Family Medicine [address] [place] [address] Ryann Galdamez PA [facility] [place] [address] Sleep disturbance (Primary Dx); Anxiety; Episode of recurrent major depressive disorder, unspecified depression episode severity (HCC); Acute cystitis with hematuria; BMI 29.0-29.9,adult; Fatigue, unspecified type; Weight loss; Type 2 diabetes mellitus without complication, without long-term current use of insulin ([facility]/HCC) (HCC); Hypothyroidism, unspecified type; Dysuria Social History [...] on file Legal Sex Female 4:20 AM REPTILE FARMER Gender Identity Not on file Sexual Orientation Not on file documented as of this encounter Last Filed Vital Signs Vital Sign Reading Time Taken Comments Blood Pressure 118/78 03/12/2021 11:04 AM REPTILE FARMER Pulse 61 03/12/2021 11:04 AM REPTILE FARMER Temperature 36.6 ??C (97.9 ??F) 03/12/2021 11:[address] Respiratory Rate - - Oxygen Saturation 98% 03/12/2021 11:04 AM REPTILE FARMER Inhaled Oxygen Concentration - - Weight 73.1 kg (161 lb 3.2 oz) 03/12/2021 11:04 AM REPTILE FARMER Height 157.5 cm (5' 2 ) 03/12/2021 11:04 AM REPTILE FARMER Body Mass Index 29.48 03/12/2021 11:04 AM REPTILE FARMER documented in this encounter Ordered Prescriptions Prescription [...] long-term current use of insulin ([facility]/HCC) (HCC) (E11.9) Assessment & Plan: Continue medications [...] Where should this order be performed? Answer: [facility] [[id number]] ??? CT Chest WO Contrast Standing Status: Future Standing Expiration Date: 03/12/2022 Order Specific Question: Where should this order be performed? Answer: [facility] [[id number]] ??? CBC with auto differential Standing [...] Referral Reason: Specialty Services Required Referral Location: [facility] Number of Visits Requested: 10 ??? POCT [...] Dispense: 14 capsule Refill: 0 RACHID Jenkins ILE FARMER documented in this encounter Miscellaneous Notes * Assessment & Plan Note - Ryann Galdamez PA - 03/12/2021 7:24 PM REPTILE FARMER Associated Problem(s): Acute cystitis with hematuria (Resolved 10/21/2021) We reviewed poc ua. Will culture urine, will notify her of results as available. Advised to f/u in next week if not improving, sooner if worsening. ILE FARMER * Assessment & Plan Note - Ryann Galdamez PA - 03/12/2021 7:24 PM REPTILE FARMER Associated Problem(s): Weight loss (Resolved 08/13/2022) Will evaluate further with labs and imaging, will notify her of results as they become available ILE FARMER * Assessment & Plan Note - Ryann Galdamez PA - 03/12/2021 7:23 PM REPTILE FARMER Associated Problem(s): Fatigue (Resolved 08/13/2022) Will evaluate further with labs and imaging, will notify her of results as they become available ILE FARMER * Assessment & Plan Note - Ryann Galdamez PA - 03/12/2021 7:23 PM REPTILE FARMER Associated Problem(s): AYAD on CPAP Continue with prn ambien ILE FARMER * Assessment & Plan Note - Ryann Galdamez PA - 03/12/2021 7:23 PM REPTILE FARMER Associated Problem(s): Moderate episode of recurrent major depressive disorder (HCC) Increase prozac dosing Advised finding hobbies to help take her mind off of world events ILE FARMER * Assessment & Plan Note - Ryann Galdamez PA - 03/12/2021 7:22 PM REPTILE FARMER Associated Problem(s): Anxiety (Resolved 03/03/2023) Will increase strength of xanax, encouraged using prn ILE FARMER * Assessment & Plan Note - Ryann Galdamez PA - 03/12/2021 7:22 PM REPTILE FARMER Associated Problem(s): Type 2 diabetes mellitus without complications (CMS/HCC) (HCC) Continue medications same at this time Encouraged heart healthy diet Advised increasing frequency of eating ILE FARMER * Assessment & Plan Note - Ryann Galdamez PA - 03/12/2021 7:22 PM REPTILE FARMER Associated Problem(s): Acquired hypothyroidism Will evaluate further with labs Continue meds same at this time ILE FARMER documented in this encounter Plan of Treatment Not on file documented as of this encounter Procedures Procedure Name Priority Date/Time Associated Diagnosis Comments URINE CULTURE Routine 03/12/2021 1:10 PM REPTILE FARMER Dysuria POCT URINALYSIS DIPSTICK Routine 03/12/2021 1:08 PM REPTILE FARMER Dysuria COPY RECEIVED FROM Routine 03/12/2021 12 :00 AM REPTILE FARMER COPY(IES) SENT TO: Routine 03/12/2021 12 :00 AM REPTILE FARMER CBC WITH AUTO DIFFERENTIAL Routine 03/12/2021 12:00 AM REPTILE FARMER Fatigue, unspecified type Weight loss Type 2 diabetes mellitus without complication, without long-term current use of insulin (CMS/HCC) ([facility]) TSH Routine 03/12/2021 12:00 AM REPTILE FARMER Fatigue, unspecified type Weight loss Type 2 diabetes mellitus without complication, without long-term current use of insulin (CMS/HCC) (HCC) Hypothyroidism, unspecified type T4, FREE Routine 03/12/2021 12:00 AM REPTILE FARMER Fatigue, unspecified type Weight loss Type 2 diabetes mellitus without complication, without long-term current use of insulin (CMS/HCC) (HCC) Hypothyroidism, unspecified type HEMOGLOBIN A1C Routine 03/12/2021 12:00 AM REPTILE FARMER Fatigue, unspecified type Weight loss Type 2 diabetes mellitus without complication, without long-term current use of insulin (CMS/HCC) ([facility]) COMPREHENSIVE METABOLIC PANEL Routine 03/12/2021 12:00 AM REPTILE FARMER Fatigue, unspecified type Weight loss Type 2 diabetes mellitus without complication, without long-term current use of insulin (CMS/HCC) (HCC) documented in this encounter Results * (ABNORMAL) Urine culture Urine, clean voided (03/12/2021 1:10 PM REPTILE FARMER) Urine culture (A) [facility] Comment: ??CULTURE, URINE, ROUTINE ?Micro Number: ?[id number] ??Test Status: ? Final ??Specimen Source: ?? [...] loracarbef. Urine, clean voided 03/12/2021 1:10 PM REPTILE FARMER 03/13/2021 3:19 AM REPTILE FARMER Ryann RASHID LAB MICROBIOLOGY - GENERAL ORDERABLES Final Result Performing Organization Address [facility]/State/[facility] Co de Phone Number [facility] [address] [place] [address] * (ABNORMAL) POCT urinalysis dipstick (03/12/2021 1:08 PM REPTILE FARMER) Color, Urine, POC Light Yellow Clarity, ur, POC Clear Clear Glucose, ur, POC Negative Negative mg/dL Bilirubin, ur, POC Negative Negative, Small, Moderate, Large Ketones, ur, POC Negative Negative Specific [place], POC 1.010 1.005 - 1.030 Blood, ur, POC Moderate(A) Negative pH, ur, POC 5.5 5.0 - 8.0 Protein, ur, POC Negative Negative Urobilinogen, urine, POC 0.2 0.2 - 1.0 mg/dL Nitrite, ur, POC Negative Negative Leukocytes, ur, POC Trace(A) Negative Lot Number [id number] Urine 03/12/2021 1:08 PM REPTILE FARMER Ryann RASHID POINT OF CARE TEST ORDERAB LES Final Result * Copy received from (03/12/2021 12:00 AM REPTILE FARMER) Copy Rec'd from: [facility] Comment: ?[facility] ?PRACTICE ?[address] ?[place] [address] 03/12/2021 03/12/2021 1:3 1 PM REPTILE FARMER Ryann RASHID LAB BLOOD ORDERABLES Final Result Performing Organization Address City/[facility] de Phone Number [facility] * COPY(IES) SENT TO: (03/12/2021 12:00 AM REPTILE FARMER) COPY(IES) SENT TO: [facility] Comment: ?[facility] ?[address] ?[address] ?[place] [address] 03/12/2021 03/12/2021 1:3 1 PM REPTILE FARMER Ryann RASHID LAB BLOOD ORDERABLES Final Result Performing Organization Address [facility] de Phone Number [facility] * T4, free (03/12/2021 12:00 AM REPTILE FARMER) Free T4 1.5 0.8 - 1.8 ng/dL [facility] Blood specimen (specimen) 03/12/2021 03/12/2021 1:31 PM REPTILE FARMER Ryann RASHID LAB BLOOD ORDERABLES Final Result Performing Organization Address [facility] de Phone Number [facility] [address] [place] [address] * TSH (03/12/2021 12:00 AM REPTILE FARMER) Pathologist [facility] TSH 1.34 0.40 - 4.50 mIU/L [facility] Blood specimen (specimen) 03/12/2021 03/12/2021 1:31 PM REPTILE FARMER Ryann RASHID LAB BLOOD ORDERABLES Final Result Performing Organization Address [facility] Phone Number [facility] [address] [place] [address] * (ABNORMAL) Hemoglobin A1c (03/12/2021 12:00 AM REPTILE FARMER) Pathologist [facility] Hgb A1C 6.1(H) <5.7 % of total Hgb [facility] Comment: ? Your request to have a duplicate copy faxed has been acknowledged. ?Queued to: ??[id number] Blood specimen (specimen) 03/12/2021 03/12/2021 1:31 PM REPTILE FARMER Ryann RASHID LAB BLOOD ORDERABLES Final Result Performing Organization Address [facility] de Phone Number [facility] [address] [place] [address] * (ABNORMAL) Comprehensive metabolic panel (03/12/2021 12:00 AM REPTILE FARMER) Glucose 188(H) 65 - 99 mg/dL [facility] Comment: ? Fasting reference interval For someone without known diabetes, a glucose value >125 mg/dL indicates that they may have diabetes and this should be confirmed with a follow-up test. BUN 20 7 - 25 mg/dL [facility] Creatinine 0.72 0.60 - 0.88 mg/dL [facility] Comment: For patients >49 years of age, the reference limit for Creatinine is approximately 13% higher for people identified as -[place]. eGFR NON-AFR. ANDORRAN 79 > OR = 60 mL/min/1 .73m2 [facility] EGFR 92 > OR = 60 mL/min/1 .73m2 [facility] BUN/creat ratio NOT APPLICABLE 6 - 22 (calc) [facility] Sodium 138 135 - 146 mmol/L [facility] Potassium, pl 4.2 3.5 - 5.3 mmol/L [facility] Chloride 100 98 - 110 mmol/L [facility] CO2 27 20 - 32 mmol/L [facility] Calcium 10.0 8.6 - 10.4 mg/dL [facility] Protein, sr 7.0 6.1 - 8.1 g/dL [facility] Albumin 4.3 3.6 - 5.1 g/dL [facility] GLOBULIN 2.7 1.9 - 3.7 g/dL (calc) [facility] Alb/glob ratio 1.6 1.0 - 2.5 (calc) [facility] Bilirubin, total 0.6 0.2 - 1.2 mg/dL [facility] Alk phos 76 37 - 153 U/L [facility] AST 15 10 - 35 U/L [facility] ALT (SGPT) 12 6 - 29 U/L [facility] Blood specimen (specimen) 03/12/2021 03/12/2021 1:31 PM REPTILE FARMER Ryann RASHID LAB BLOOD ORDERABLES Final Result [facility] [address], [place] [address] * (ABNORMAL) CBC with auto differential (03/12/2021 12:00 AM REPTILE FARMER) WBC 8.8 3.8 - 10.8 Thousand/u L [...] Blood specimen (specimen) 03/12/2021 03/12/2021 1:31 PM REPTILE FARMER Ryann RASHID LAB BLOOD ORDERABLES Final Result [facility] [address] [address] documented in this encounter Visit Diagnoses Diagnosis Sleep disturbance- Primary Unspecified sleep disturbance Anxiety Anxiety state, unspecified Episode of recurrent major depressive disorder, unspecified depression episode severity (HCC) Acute cystitis with hematuria BMI 29.0-29.9,adult Fatigue, unspecified type Weight loss Loss of weight Type 2 diabetes mellitus without complication, without long-term current use of insulin ([facility]/HCC) (HCC) Hypothyroidism, unspecified type Dysuria documented in [...] documented as of this encounter Care Teams Regional Maintenance Manager Relationship Specialty Start Date End Date Ryann Galdamez PA PCP - General Electronic News Gathering Camera Person 07/16/20 04/01/21 documented as of this encounter
--- OUTSIDE RECORDS SUMMARY | 2024-03-25 11:02 | XMS_ITS | Encounter Summary ---
Author Organization [facility] Address [address] [place] [address] Care Team Providers Care Grit Blaster Name Role Phone Ryann Galdamez Primary Care Provider +1- [phone] Reason for Visit * Reason Onset Date Comments Med Refill 10/25/2020 Encounter Details Date Type Department Care Team (Late st Contact Info) Description 10/25/2020 Telephone [facility] Family Medicine [address] [place] [address] Ryann Galdamez PA [facility] [place] [address] Med Refill Social History Tobacco [...] on file Legal Sex Female 4:20 AM EXTRACTIONS TECHNICIAN Gender Identity Not on file Sexual [...] on filedocumented in this encounter Care Teams Grit Blaster Relationship Specialty Start Date End Date Ryann Galdamez PA PCP - General Tag Marker 07/16/20 04/01/21 documented as of this encounter
--- OUTSIDE RECORDS SUMMARY | 2024-03-25 11:02 | XMS_ITS | Encounter Summary ---
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 It is scanned in the chart. * Telephone Encounter - Ryann Ayala PA - 09/05/2020 7:14 AM CDT Please call [facility] imaging and retrieve results of xray of left ribcage from 09/04/20. documented in this encounter Plan of Treatment Not on file documented as of this encounter Visit Diagnoses Not on filedocumented in this encounter Care Teams Spinning Frame Changer Relationship Specialty Start Date End Date Ryann Galdamez PA PCP - General Knitting Machine Fixer 07/16/20 04/01/21 documented as of this encounter
--- OUTSIDE RECORDS SUMMARY | 2024-03-25 11:02 | XMS_ITS | Encounter Summary ---
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
--- OUTSIDE RECORDS SUMMARY | 2024-03-25 11:02 | XMS_ITS | Encounter Summary ---
Author Organization [facility] Address [address] [place] [address] Phone Care Team Providers Care Chief Client Officer Name Role Phone Ryann Galdamez Primary Care Provider +1- [phone] Encounter Details Date Type Department Care Team (Late st Contact Info) Description 09/11/2020 Telephone [facility] Cardiology [address] [place] [address] [place] [address] Cathleen Walker MD [address] [place] [address] Social History Tobacco Use Types [...] on file 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
--- OUTSIDE RECORDS SUMMARY | 2024-03-25 11:02 | XMS_ITS | Encounter Summary ---
Author Organization [facility] Address [address] [place] [address] Care Team Providers Care Box Truck Driver Name Role Phone Ryann Galdamez Primary Care Provider +1- [phone] Reason for Visit * Reason Comments Follow-up Encounter Details Date Type Department Care Team (Late st Contact Info) Description 10/16/2020 2:30 PM CDT Office Visit [facility] Family Medicine [address] [place] [address] Ryann Galdamez PA [facility] [place] [address] Obesity (BMI 30-39.9) (Primary Dx); [...] on file 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
--- OUTSIDE RECORDS SUMMARY | 2024-03-25 11:02 | XMS_ITS | Encounter Summary ---
Author Organization [facility] Address [address] [place] [address] Phone Care Team Providers Care Supervisor Painting Shipyard Name Role Phone Ryann Galdamez Primary Care Provider +1- [phone] Encounter Details Date Type Department Care Team (Late st Contact Info) Description 03/04/2021 Telephone [facility] Cardiology [address] [place] [address] [place] [address] Cathleen Walker MD [address] [address] [address] [place] [address] Social History Tobacco Use Types [...] file 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 I'm sorry to hear about thee passing of her . Continue to work with PCP and therapist Start spironolactone 12.5 mg daily Continue coreg BMP in 1 week MACHINE FEEDER * Telephone Encounter - Paulina Bright RN - 03/04/2021 4:14 PM FISH MACHINE FEEDER Spoke w/ pt She reports increase BP, [...] pt is allergic to amlodipine and lisinopril MACHINE FEEDER * Telephone Encounter - Lili Zelaya - 03/04/2021 3:36 PM CST Pt says she just missed a call from a nurse and her phone wouldn't work and she does not get vm right now, she would like to speak with a nurse MACHINE FEEDER * Telephone Encounter - Kena Ruvalcaba - 03/04/2021 8:24 AM CST Aaron Pt called states her BP is running high, please call. MACHINE FEEDER documented in this encounter Plan of Treatment Scheduled Orders Name Type Priority Associated Diagnoses Orde r Schedule Basic metabolic panel Lab Routine Hypertension, unspecified type Expected: 03/05/2021, Expires: 03/05/2022 documented as of this encounter Visit Diagnoses Diagnosis Hypertension, unspecified type- Primary documented in this encounter Care Teams Supervisor Painting Shipyard Relationship Specialty Start Date End Date Ryann Galdamez PA PCP - General Roll Mill Operator 07/16/20 04/01/21 documented as of this encounter
--- OUTSIDE RECORDS SUMMARY | 2024-03-25 11:02 | XMS_ITS | Encounter Summary ---
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
--- OUTSIDE RECORDS SUMMARY | 2024-03-25 11:02 | XMS_ITS | Encounter Summary ---
Author Organization [facility] Address [address] [place] [address] Care Team Providers Care Skin Piler Name Role Phone Ryann Galdamez Primary Care Provider +1- [phone] Reason for Visit * Reason Comments Follow-up grief Encounter Details Date Type Department Care Team (Late st Contact Info) Description 01/17/2021 11:00 AM CDT Office Visit [facility] Medical [facility] Family Medicine 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 Reese, psychiatrist at [phone], [address] [place] [address] documented in this encounter Ordered Prescriptions Prescription [...] 01/17/2021 documented in this encounter Care Teams Skin Piler Relationship Specialty Start Date End Date Ryann Galdamez PA PCP - General Filling Machine Set Up Mechanic 07/16/20 04/01/21 documented as of this encounter
--- OUTSIDE RECORDS SUMMARY | 2024-03-25 11:02 | XMS_ITS | Encounter Summary ---
Author Organization [facility] Healthcare Address [address] [place] [address] Care Team Providers Care Dredge Runner Name Role Phone Ryann Galdamez Primary Care Provider +1- [phone] Encounter Details Date Type Department Care Team (Late st Contact Info) Description 09/13/2020 11:15 AM CDT - 09/13/2020 1:00 PM CDT Surgery [facility] [address] [place] [address] Norma Conrad DO [address] [place], [place] [id number] LEFT HEART CATHETERIZATION WITH CORONARY ANGIOGRAPHY AND WITH OR WITHOUT LEFT VENTRICULOGRAM [id number] Surgery Details Date/Time Status Location OR Service Patient Class Case Class Case Type Trauma Case? 09/13/2020 11:15 AM Posted [facility] CARDIAC ON SITE MANAGER CCL 03 Cardiovascular Outpatient in Bed Elective Panel 1 Procedure LRB Anes Op Region Wound Class Comments LEFT HEART CATHETERIZATION W ITH CORONARY ANGIOGRAPHY AND WITH OR WITHOUT LEFT VENTRICULOGRAM 62166 N/A Conscious Sedation Surgeon Surgeon Role Service Panel Norma Conrad DO Primary Cardiovasc ular 1 Homer Gagnon MD Fellow Cardiova scular 1 Braulio Orourke MD Fellow Cardiovascular 1 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 If you need to speak to someone after 5pm please call [facility] at [phone] and ask the four corner former machine operator topage the Cardiac Jacquard Loom Weaver Fellow artist consultant. documented in this encounter Medications at Time [...] negative Sedation Plan: Moderate Braulio Orourke MD Search Director [facility] Cosigned by Norma Conrad DO at 09/13/2020 10:16 AM CDT * Pre-Cardiac Catheterization Workup and H&P - Jadiel Brice RN - 09/11/2020 3:31 PM CDT PRE-CARDIAC CATHETERIZATION WORKUP Patient Name: Prema Pearce Patient Patient : 1940 Date of Procedure: 09/13/2020 ORDERING SEC REPORTING CONSULTANT: Surgeon(s): Sobia RussoGun MechanicMD Procedure(s): LEFT HEART CATHETERIZATION WITH CORONARY ANGIOGRAPHY AND WITH OR WITHOUT LEFT VENTRICULOGRAM [id number] Requested Diagnostic: [] Coronary Angiograms Only [x] [...] Yes [] No [] Contraindicated Indications for Jacquard Loom Weaver visit (Select all that apply): [] ACS [...] ESRD [] Dialysis [] HD []PD: Prior [place]: [] Yes [x] No If Yes, Most Recent [place] Date: Tobacco Use Social History Tobacco Use [...] 0.73 0.60 - 0.93 mg/dL eGFR NON-AFR. VIETNAMESE 78 > OR = 60 mL/min/1.73m2 EGFR [...] and Assessment Completed by: Braulio Orourke MD Search Director [facility] Cosigned by Norma [...] CDT Cardiac Catheterization Report, Left Heart Facility: [facility] Referring Physician: Cathleen Walker MD Performing: [...] local anesthesia; modified Seldinger technique; micropuncture technique; 5-Albanian 12 cm sheath, right femoral artery. ?? [...] There is no significant obstruction of the [place] coronary arteries. ?? There is, however, significant tortuosity of the coronary vessels, suggestive of hypertensive heart disease. THERAPEUTIC RECOMMENDATIONS Findings of the catheterization were discussed with the patient and will be conveyed to the referring physician who will determine the patient's future therapy and follow-up. ?? Conscious sedation note: I provided direct [id number] monitoring of conscious sedation, which was administered by an independent, trained nurse using fentanyl and midazolam for 28 minutes. Norma Conrad DO Graphic Manager Division of Cardiology [facility] Cathleen Mccormick MD CV CARDIAC CATH PROCEDURES Final Result * (ABNORMAL) CBC without differential (09/13/2020 10:54 AM CDT) WBC 6.1 3.8 - 9.9 K/cumm [facility] Hgb 11.1(L) 11.9 - 15.5 g/dL [facility] Hct 35.5(L) 35.6 - 45.5 % [facility] Plt 254 150 - 400 K/cumm [facility] MPV 10.3 9.1 - 12.3 fL [facility] RBC 3.84(L) 3.90 - 5.20 M/cumm [facility] MCV 92.4 81.3 - 96.4 fL [facility] MCH 28.9 27.1 - 33.3 pg [facility] MCHC 31.3(L) 32.3 - 35.7 g/dL [facility] RDW CV 15.7(H) 11.1 - 14.9 % [facility] RDW SD 53.1(H) 35.7 - 48.1 fL [facility] NRBC abs 0.00 0.00 - 0.01 K/cumm [facility] Blood specimen (specimen) 09/13/2020 10:54 AM CDT 09/13/2020 11:05 AM CDT Narrative [facility] - 09/13/2020 11:15 AM CDT To be drawn after hydration bolus complete Norma Conrad DO LAB BLOOD ORDERABLE S Final Result [facility] Department [place] [address] * POCT glucose (09/13/2020 9:54 AM CDT) Pathologist [facility] Glucose, POC 162 70 - 199 mg/dL [facility] Blood specimen (specimen) 09/13/2020 9:54 AM CDT 09/13/2020 9:54 AM CDT Cathleen Mccormick MD LAB POCT ORDERAB LES - DEVICE Final Result [facility] Department [place] [address] * ECG 12 lead (09/13/2020 9:50 AM CDT) [facility] Ventricular Rate EKG/Min 76 BPM [facility] Atrial Rate 72 BPM [facility] QRS-Interval (MSEC) 106 ms [facility] QT-Interval (MSEC) 386 ms [facility] QTc 434 ms [facility] R [place] 53 degrees [facility] T [place] 19 degrees [facility] Diagnosis Atrial fibrillation Nonspecific T wave abnormality Abnormal ECG When compared with ECG of 29-MAY-2019 21:27, anterior T wave abnormalities have improved Confirmed by BRAULIO HAMM M.D ([id number]) on 09/13/2020 4:08:12 PM [facility] 09/13/2020 9:50 AM CDT 09/13/2020 4:08 PM CDT us Norma Conrad DO ECG ORDERABLES Fin al Result Performing Organization Address [facility] Co de Phone Number [facility] documented in this encounter Visit Diagnoses Diagnosis [...] 09/13/2020 documented in this encounter Care Teams Dredge Runner Relationship Specialty Start Date End Date Ryann Galdamez PA PCP - General Gambreler 07/16/20 04/01/21 documented as of this encounter
--- OUTSIDE RECORDS SUMMARY | 2024-03-25 11:03 | XMS_ITS | Encounter Summary ---
Author Organization [facility] Address [address] [place] [address] Phone Care Team Providers Care Caregivers Homecare Name Role Phone Hermila Calhoun MD, Wilber A. Primary Care Provider Reason for Visit * Reason Onset Date Comments Appointment 11/23/2019 Encounter Details Date Type Department Care Team (Late st Contact Info) Description 11/23/2019 Telephone [facility] Cardiology [address] [facility] [facility] 8th [place] [address] [place] [address] Lina Juarez Appointment Social History Tobacco Use Types Packs/Day Years Used Date Smoking Tobacco: Never Smokeless Tobacco: Never Alcohol Use Standard Drinks/Week Comments Yes 0 (1 standard drink = 0.6 oz pur e alcohol) 1/mo Comments No Sex and Gender Information Value Date Recorded Sex Assigned at Not on file 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
--- OUTSIDE RECORDS SUMMARY | 2024-03-25 11:03 | XMS_ITS | Encounter Summary ---
Author Organization [facility] Address [address] [place] [address] Phone Care Team Providers Care Bread Wrapper Name Role Phone Hermila Calhoun MD, Wilber Martinez Primary Care Provider Encounter Details Date Type Department Care Team (Late st Contact Info) Description 12/05/2019 Telephone [facility] Cardiology [facility] Medical Office Building [address] [place] [address] Concepcion Iniguez, [facility] Social History Tobacco Use Types Packs/Day Years Used Date Smoking Tobacco: Never Smokeless Tobacco: Never Alcohol Use Standard Drinks/Week Comments Yes 0 (1 standard drink = 0.6 oz pur e alcohol) 1/mo Comments No Sex and Gender Information Value Date Recorded Sex Assigned at Not on file 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
--- OUTSIDE RECORDS SUMMARY | 2024-03-25 11:03 | XMS_ITS | Encounter Summary ---
Author Organization [facility] Address [address] [place] [address] Phone Care Team Providers Care Spanish Tutor Name Role Phone Ryann Galdamez Primary Care Provider +1- [phone] Reason for Referral * MRI/CAT/PET Scan (Routine) - Closed Specialty Diagnoses / Procedures Referred By Contac t Referred To Contact Radiology Diagnoses Dyspnea, unspecified type Chronic heart failure with preserved ejection fraction (CMS/HCC) (HCC) Procedures PET/CT Myocardial Perfusion Imaging (Multiple) Cathleen Fish MD Phone: tel: fax: [address] [address] Referral ID Status Reason Start Date Expiration Date Visits Re quested Visits Authorized [id number] Closed 08/23/2020 11/21/2020 2 2 * Cardiology (Routine) - Closed Specialty Diagnoses / Procedures Referred By Contac t Referred To Contact Diagnoses Dyspnea, unspecified type Chronic heart failure with preserved ejection fraction (CMS/HCC) (HCC) Procedures Transthoracic Echo Complete W Doppler/CF Cathleen Fish MD Phone: tel: fax: [facility] [address] [place] [address] Referral ID Status Reason Start Date Expiration Date Visits Re quested Visits Authorized [id number] Closed 08/06/2020 09/05/2021 1 1 Encounter Details Date Type Department Care Team (Late st Contact Info) Description 08/06/2020 10:50 AM CDT Office Visit 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 Cardiovascular Division, [facility] Provider: Cathleen Fish [...] aorta. Mod LAE and mild-to-mod MR. Mild TR/KY with est PA pressure 41/9 mm Hg [...] of test: 08/31/2020 Type of test: TTE /[facility] #: [id number] Date of : 1940 (F) Racking Technician: Ingrid Jones [facility] Referring Physician: CATHLEEN FISH MD Contrast Agent: 0.4 ml Optison Administered, (2.6 ml wasted). Contrast Administered by: Tami Bush RN Supervised/Interpreted by: Nathen Ortiz MD Diagnosis: Location: [facility] Reason for test: Dyspnea MV Structure: Normal, [...] 2=Hypo 3=Akinetic 4=Dyskin./Aneurysm 0=Not visualized) Parasternal Long Daphne:MAS=1 BAS=1 MIL=1 NIGHAT=1 Parasternal Short Daphne:MAS=1 MIS=1 DE=1 MIL=1 MAL=1 MA=1 Apical 4 Chambers:=1 MIS=1 BIS=1 BAL=1 MAL=1 AL=1 AC=1 Apical 2 Chambers:AI=1 DE=1 BI=1 BA=1 MA=1 AA=1 AC=1 LV Global [...] MD By signing this report, the attending central supply tech certifies that he or she has personally supervised and interpreted the echocardiogram and has reviewed and or edited and agrees with the written comments contained within the report. Procedure Note Nathen Ortiz MD - 08/31/2020 Patient name: Prema Pearce Date of test: 08/31/2020 Type of test: TTE w/Doppler [facility] #: [id number] Date of : 1940 (F) Racking Technician[facility] In[facility] Referring Physician: CATHLEEN FISH MD Contrast Agent: 0.4 ml Optison Administered, (2.6 ml wasted). Contrast Administered by: Tami Bush RN Supervised/Interpreted by: Nathen Ortiz MD Diagnosis: Location: [facility] Reason for test: Dyspnea MV Structure: Normal, [...] 2=Hypo 3=Akinetic 4=Dyskin./Aneurysm 0=Not visualized) Parasternal Long Daphne:MAS=1 BAS=1 MIL=1 NIGHAT=1 Parasternal Short Daphne:MAS=1 MIS=1 DE=1 MIL=1 MAL=1 MA=1 Apical 4 Chambers:=1 MIS=1 BIS=1 BAL=1 MAL=1 AL=1 AC=1 Apical 2 Chambers:AI=1 DE=1 BI=1 BA=1 MA=1 AA=1 AC=1 LV Global [...] MD By signing this report, the attending central supply tech certifies that he or she has personally supervised and interpreted the echocardiogram and has reviewed and or edited and agrees with the written comments contained within the report. Result [facility] Cathleen Mccormick MD CV ECHO PROCEDUR [...] Nick Rai M.D. us Cathleen Mccormick MD [facility] PET PROCEDUR ES Final Result * (ABNORMAL) [...] LDL-C. Buzz PUENTE et al. WILFRIDO. 2013;310(19): 7023-6204 (http://education.Paragon 28.Sport/Life/faq/GGV009) Chol/HDL ratio 2.9 <5.0 (calc) [facility] [...] BLOOD ORDERA BLES Final Result [facility] [address] [place] [address] * (ABNORMAL) Comprehensive metabolic panel (08/20/2020 8:30 AM CDT) Glucose 222(H) 65 - 99 mg/dL [facility] Comment: ? Fasting reference interval For someone without known diabetes, a glucose value >125 mg/dL indicates that they may have diabetes and this should be confirmed with a follow-up test. BUN 20 7 - 25 mg/dL [facility] Creatinine 0.74 0.60 - 0.93 mg/dL [facility] Comment: For patients >49 years of age, the reference limit for Creatinine is approximately 13% higher for people identified as -[place]. eGFR NON-AFR. PALESTINIAN 77 > OR = 60 mL/min/1 .73m2 [facility] EGFR 89 > OR = 60 mL/min/1 .73m2 [facility] BUN/creat ratio NOT APPLICABLE 6 - 22 (calc) [facility] Sodium 133(L) 135 - 146 mmol/L [facility] Potassium, pl 5.1 3.5 - 5.3 mmol/L [facility] Chloride 99 98 - 110 mmol/L [facility] CO2 26 20 - 32 mmol/L [facility] Calcium 10.3 8.6 - 10.4 mg/dL [facility] Protein, sr 7.4 6.1 - 8.1 g/dL [facility] Albumin 4.4 3.6 - 5.1 g/dL [facility] GLOBULIN 3.0 1.9 - 3.7 g/dL (calc) [facility] Alb/glob ratio 1.5 1.0 - 2.5 (calc) [facility] Bilirubin, total 0.6 0.2 - 1.2 mg/dL [facility] Alk phos 116 37 - 153 U/L [facility] AST 14 10 - 35 U/L [facility] ALT (SGPT) 11 6 - 29 U/L [facility] Blood specimen (specimen) 08/20/2020 8:30 AM CDT 08/20/2020 8:30 AM CDT Narrative [facility] - 08/21/2020 2:22 PM CDT FASTING:YES FASTING: YES Cathleen Mccormick MD LAB BLOOD ORDERA BLES Final Result [facility] [address] [id number] * (ABNORMAL) CBC with auto differential (08/20/2020 [...] ORDERA BLES Final Result Performing Organization Address [facility] Co de Phone Number [facility] [address] [place] [address] * (ABNORMAL) Pro B-type natriuretic peptide (08/20/2020 8:30 AM CDT) B type natriuretic peptide 117(H) <100 pg/mL [facility] Comment: BNP levels increase with age [...] ORDERA BLES Final Result Performing Organization Address [facility] Co de Phone Number [facility] [address] [place] [address] documented in this encounter Visit Diagnoses Diagnosis [...] documented as of this encounter Care Teams Spanish Tutor Relationship Specialty Start Date End Date Ryann Galdamez PA PCP - General Community Health Nurse Supervisor 07/16/20 04/01/21 documented as of this encounter
--- OUTSIDE RECORDS SUMMARY | 2024-03-25 11:03 | XMS_ITS | Encounter Summary ---
Author Organization [facility] Address [address] [place] [address] Phone Care Team Providers Care Justice Court Judge Name Role Phone Hermila Calhoun MD, Wilber Martinez Primary Care Provider Reason for Referral * (Routine) - Closed Specialty Diagnoses / Procedures Referred By Contac t Referred To Contact Diagnoses Atrial fibrillation (CMS/HCC) (HCC) Procedures Extended/[facility] Holter Patch Cassandra Fish MD Phone: tel: fax: [address] [address] Referral ID Status Reason Start Date Expiration Date Visits Re quested Visits Authorized [id number] Closed 10/07/2019 11/05/2020 1 1 Reason for Visit * Cardiology (Routine) - Closed Specialty Diagnoses / Procedures Referred By Contac t Referred To Contact Cardiology Diagnoses Atrial fibrillation, unspecified type (HCC) Wilber Cleaning Jr., MD [address] [place] [address] Phone: tel: fax: Cassandra Fish MD [address] [facility] [place] [address] [place] [address] Phone: tel: fax: Referral ID Status Reason Start Date Expiration Date V isits Requested Visits Authorized [id number] Closed Specialty Services Required 07/20/2019 11/15/2019 3 3 Encounter Details Date Type Department Care Team (Late st Contact Info) Description 10/07/2019 10:10 AM CDT Office Visit 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 #: 0 ?Location: [facility] Heart and Vascular : 1940 ??Age: 79 ??Sex: F Ref Physician(s): CASSANDRA FISH MD Interpreted by: Frank Horn MD Hook-Up Tech: [employer] Reason for Test: Hook-up Tech: [employer] Monitor Serial#: [id number] Case#: [id number] Diary Instruction: Yes Hook-up Tech Comment: Date Time Hooked-up: 10/07/2019 00:00:00 Monitor Returned: 10/27/2019 Recording Started: 10/14/2019 09:00:40 Recording Ended: 10/21/2019 09:00:40 Test Duration (hrs:min): 168:00 Period Analyzed (hrs:min): 129:29 Quality: STATISTICS: Events: 0 Total QRS: 280865 Vent. Beats: 172 Supravent. Beats: 0 Avg [...] 0 sec at Afib/Aflutter: Afib: 1 episodes 79336 min Maximum: 138 bpm Minimum: 59 bpm SCANNING SUMMARY: : There were 518011 QRS complexes detected. ??Of these, there were [...] was 1 Afib Episode with total duration 77102.5(100%) minutes with Max: 138 bpm , Min: 59 bpm. and Av bpm. The longest Afib was 59523.5 minutes. The AF [place] was 100% with 0%<59 bpm and 13%>100 bpm. ?? Preliminary optical laboratory technician interpretation: Sustained atrial fibrillation with occurrences [...] Date of test: 10/07/2019 Type of Test: [facility] #: 0 Location: [facility] Heart and Vascular : 1940 Age: 79 Sex: F Ref Physician(s): CASSANDRA FISH MD Interpreted by: Frank Horn MD Hook-Up Tech: Mary Jane Cortes Reason for Test: Hook-up Tech: Mary Jane Cortes Monitor Serial#: [id number] Case#: [id number] Diary Instruction: Yes Hook-up Tech Comment: Date Time Hooked-up: 10/07/2019 00:00:00 Monitor Returned: 10/27/2019 Recording Started: 10/14/2019 09:00:40 Recording Ended: 10/21/2019 09:00:40 Test Duration (hrs:min): 168:00 Period Analyzed (hrs:min): 129:29 Quality: STATISTICS: Events: 0 Total QRS: 586913 Vent. Beats: 172 Supravent. Beats: 0 Avg [...] 0 sec at Afib/Aflutter: Afib: 1 episodes 51320 min Maximum: 138 bpm Minimum: 59 bpm SCANNING SUMMARY: : There were 135438 QRS complexes detected. Of these, there were [...] was 1 Afib Episode with total duration 94484.5(100%) minutes with Max: 138 bpm , Min: 59 bpm. and Av bpm. The longest Afib was 69230.5 minutes. The AF [place] was 100% with 0%<59 bpm and 13%>100 bpm. Preliminary optical laboratory technician interpretation: Sustained atrial fibrillation with occurrences [...] documented as of this encounter Care Teams Justice Court Judge Relationship Specialty Start Date End Date Wilber Cleaning Jr., MD [address] [place] [address] PCP - General 07/03/16 07/15/20 documented as of this encounter
--- OUTSIDE RECORDS SUMMARY | 2024-03-25 11:03 | XMS_ITS | Encounter Summary ---
Author Organization [facility] Healthcare Address [address] [place] [address] Care Team Providers Care Tow Bar Driver Name Role Phone Ryann Galdamez Primary Care Provider +1- [phone] Encounter Details Date Type Department Care Team (Late st Contact Info) Description 08/22/2020 Orders Only [facility] Radiology [facility] [address] [place] [address] Jillian Ríos RN Social History Tobacco Use [...] file Legal Sex Female 4:20 AM CLINICAL LABORATORY DIRECTOR Gender Identity Not on file Sexual Orientation Not on file documented as of this encounter Plan of Treatment Not on file documented as of this encounter Visit Diagnoses Not on filedocumented in this encounter Care Teams Tow Bar Driver Relationship Specialty Start Date End Date Ryann Galdamez PA PCP - General Electrolysis Engineer 07/16/20 04/01/21 documented as of this encounter
--- OUTSIDE RECORDS SUMMARY | 2024-03-25 11:03 | XMS_ITS | Encounter Summary ---
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
--- OUTSIDE RECORDS SUMMARY | 2024-03-25 11:03 | XMS_ITS | Encounter Summary ---
Author Organization [facility] Address [address] [place] [address] Phone Care Team Providers Care Lieutenant Shift Supervisor Name Role Phone Ryann Galdamez Primary Care Provider +1- [phone] Reason for Visit * Cardiology (Routine) - Closed Specialty Diagnoses / Procedures Referred By Contac t Referred To Contact Diagnoses Dyspnea, unspecified type Chronic heart failure with preserved ejection fraction (CMS/HCC) (HCC) Procedures Transthoracic Echo Complete W Doppler/CF Cassandra Fish MD Phone: tel: fax: [facility] [address] [place] [address] Referral ID Status Reason Start Date Expiration Date Visits Re quested Visits Authorized [id number] Closed 08/06/2020 09/05/2021 1 1 Encounter Details Date Type Department Care Team (Late st Contact Info) Description 08/31/2020 10:30 AM CDT Ancillary Procedure [facility] [address] [facility] [address] [place] [address] Cassandra Fish MD [address] [facility] [address] [place] [address] Dyspnea, unspecified type; Chronic heart [...] file Legal Sex Female 4:20 AM CHIEF LIBRARIAN WORK WITH BLIND Gender Identity Not on file Sexual Orientation [...] test: 08/31/2020 Type of test: TTE w/Doppler [facility] #: [id number] Date of : 1940 (F) Director Foundation: Ingrid Jones [facility] Referring Physician: CASSANDRA FISH MD Contrast Agent: [...] 2=Hypo 3=Akinetic 4=Dyskin./Aneurysm 0=Not visualized) Parasternal [place]:MAS=1 BAS=1 MIL=1 NIGHAT=1 Parasternal [place]:MAS=1 MIS=1 AK=1 MIL=1 MAL=1 MA=1 Apical 4 [...] MD By signing this report, the attending real estate coordinator certifies that he or she has personally supervised and interpreted the echocardiogram and has reviewed and or edited and agrees with the written comments contained within the report. Procedure Note Nathen Ortiz MD - 08/31/2020 Patient name: Prema Pearce Date of test: 08/31/2020 Type of test: TTE /[facility] #: [id number] Date of : 1940 (F) Director Foundation: Ingrid Jones [facility] Referring Physician: CASSANDRA FISH MD Contrast Agent: [...] 2=Hypo 3=Akinetic 4=Dyskin./Aneurysm 0=Not visualized) Parasternal [place]:MAS=1 BAS=1 MIL=1 NIGHAT=1 Parasternal [place]:MAS=1 MIS=1 AK=1 MIL=1 MAL=1 MA=1 Apical 4 [...] MD By signing this report, the attending real estate coordinator certifies that he or she has personally supervised and interpreted the echocardiogram and has reviewed and or edited and agrees with the written comments contained within the report. Result [facility] Cassandra Mccormick MD CV ECHO PROCEDUR ES [...] mL documented in this encounter Care Teams Lieutenant Shift Supervisor Relationship Specialty Start Date End Date Ryann Galdamez PA PCP - General Dialysis Technician 07/16/20 04/01/21 documented as of this encounter
--- OUTSIDE RECORDS SUMMARY | 2024-03-25 11:03 | XMS_ITS | Encounter Summary ---
Author Organization [facility] Address [address] [place] [address] Phone Care Team Providers Care Scanner Supervisor Name Role Phone Hermila Calhoun MD, Wilber Martinez Primary Care Provider Encounter Details Date Type Department Care Team (Late st Contact Info) Description 04/27/2020 Telephone [facility] Cardiology [address] [facility] Advanced Medicine 8th [place] [address] [place] [address] Cathleen Walker MD [address] [facility] [address] [place], [place] [id number] Social History Tobacco Use Types Packs/Day Years Used Date Smoking Tobacco: Never Smokeless Tobacco: Never Alcohol Use Standard Drinks/Week Comments Yes 0 (1 standard drink = 0.6 oz pur e alcohol) 1/mo Comments No Sex and Gender Information Value Date Recorded Sex Assigned at Not on file Legal Sex Female 4:20 AM BRIDGE DESIGN ENGINEER Gender Identity Not on file Sexual [...] Paulina Bright RN - 04/27/2020 4:29 PM BRIDGE DESIGN ENGINEER lmor w/ recommendations Will update chart Offered call back GE DESIGN ENGINEER * Telephone Encounter - Cathleen Walker MD - 04/27/2020 12:32 PM CST Let's decrease her furosemide to 20 mg daily and stop spironolactone. BP is too low. GE DESIGN ENGINEER * Telephone Encounter - Paulina Bright RN - 04/27/2020 12:01 PM BRIDGE DESIGN ENGINEER Spoke w/ pt She shared she has [...] this was ok to run this low? GE DESIGN ENGINEER * Telephone Encounter - Janet Doshi BS - 04/27/2020 9:27 AM BRIDGE DESIGN ENGINEER Aaron Pt calling and BP is running low. This morning was 103/71. Please call to discuss. GE DESIGN ENGINEER documented in this encounter Plan of [...] documented as of this encounter Care Teams Scanner Supervisor Relationship Specialty Start Date End Date Wilber Cleaning Jr., MD [address] [place] [address] PCP - General 07/03/16 07/15/20 documented as of this encounter
--- OUTSIDE RECORDS SUMMARY | 2024-03-25 11:03 | XMS_ITS | Encounter Summary ---
Author Organization [facility] Address [address] [place] [address] Phone Care Team Providers Care Rehabilitation Therapist Name Role Phone Hermila Calhoun MD, Wilber AYumiko Primary Care Provider Encounter Details Date Type Department Care Team (Late st Contact Info) Description 08/05/2019 Telephone [facility] Cardiology [address] 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
--- OUTSIDE RECORDS SUMMARY | 2024-03-25 11:03 | XMS_ITS | Encounter Summary ---
Author Organization [facility] Address [address] [place] [address] Phone Care Team Providers Care Engraver Steel Plate Name Role Phone Ryann Galdamez Primary Care Provider +1- [phone] Encounter Details Date Type Department Care Team (Late st Contact Info) Description 09/03/2020 Telephone [facility] Cardiology [address] [facility] Advanced Medicine 8th [place] [address] [place] [address] Cathleen Walker MD [address] [facility] [address] [place] [address] Social History Tobacco Use Types [...] on file Legal Sex Female 4:20 AM PIZZAMAKER Gender Identity Not on file Sexual Orientation Not on file documented as of this encounter Miscellaneous Notes * Telephone Encounter - Paulina Birght RN - 09/03/2020 2:47 PM CDT Spoke w/ pt See other note * Telephone Encounter - Alise Anderson - 09/03/2020 2:39 PM CDT ABE RETURNING CALL FROM TODAY documented in this encounter Plan of Treatment Not on file documented as of this encounter Visit Diagnoses Not on filedocumented in this encounter Care Teams Engraver Steel Plate Relationship Specialty Start Date End Date Ryann Galdamez PA PCP - General Phlebotomist 07/16/20 04/01/21 documented as of this encounter
--- OUTSIDE RECORDS SUMMARY | 2024-03-25 11:03 | XMS_ITS | Encounter Summary ---
Author Organization [facility] Address [address] [place] [address] Phone Care Team Providers Care Commissions Coordinator Name Role Phone Hermila Calhoun MD, Wilber Martinez Primary Care Provider Encounter Details Date Type Department Care Team (Late st Contact Info) Description 09/19/2019 Telephone [facility] Cardiology [address] [facility] Advanced Medicine [address]th [place] [address] [place] [address] Cathleen Walker MD [address] [facility] [address] [place] [address] Social History Tobacco Use Types Packs/Day Years Used Date Smoking Tobacco: Never Smokeless Tobacco: Never Alcohol Use Standard Drinks/Week Comments Yes 0 (1 standard drink = 0.6 oz pur e alcohol) 1/mo Comments No Sex and Gender Information Value Date Recorded Sex Assigned at Not on file Legal Sex Female 4:20 AM MAIL LIST LIBRARIAN Gender Identity Not on file Sexual Orientation [...] pt for 10/06 w/ Dr. Walker at [facility] at [address], please add to schedule [...] documented as of this encounter Care Teams Commissions Coordinator Relationship Specialty Start Date End Date Wilber Cleaning Jr., MD [facility] [place] [address] PCP - General 07/03/16 07/15/20 documented as of this encounter
--- OUTSIDE RECORDS SUMMARY | 2024-03-25 11:03 | XMS_ITS | Encounter Summary ---
Author Organization [facility] Address [address] [place] [address] Phone Care Team Providers Care Medical Officer Name Role Phone Hermila Calhoun MD, Wilber Martinez Primary Care Provider Encounter Details Date Type Department Care Team (Late st Contact Info) Description 06/26/2020 Telephone [facility] Cardiology [address] [facility] Medicine [address]th [place] [address] [place] [address] Cathleen Walker MD [address] [facility] [address] [place], [place] [id number] Social History Tobacco Use Types Packs/Day Years Used Date Smoking Tobacco: Never Smokeless Tobacco: Never Alcohol Use Standard Drinks/Week Comments Yes 0 (1 standard drink = 0.6 oz pur e alcohol) 1/mo Comments No Sex and Gender Information Value Date Recorded Sex Assigned at Not on file Legal Sex Female 4:20 AM REVENUE TAX SPECIALIST Gender Identity Not on file Sexual [...] AM CDT Aaron Eliquis 5mg 2/D [address] [facility] documented in this encounter Plan of [...] as of this encounter Care Teams Medical Officer Relationship Specialty Start Date End Date Wilber Cleaning Jr., MD [address] [place] [address] PCP - General 07/03/16 07/15/20 documented as of this encounter
--- OUTSIDE RECORDS SUMMARY | 2024-03-25 11:03 | XMS_ITS | Encounter Summary ---
Author Organization [facility] Address [address] [place] [address] Care Team Providers Care Utility Bagger Name Role Phone Ryann Galdamez Primary Care Provider +1- [phone] Reason for Visit * Reason Comments Establish Care stress test at [facility] 08/23 Echo 08/31 Encounter Details Date Type Department Care Team (Late st Contact Info) Description 08/21/2020 10:30 AM CDT Office Visit [facility] [address] [facility] [address] [place] [address] Ryann Galdamez PA [facility] [place] [address] Encounter to establish care (Primary [...] on file Legal Sex Female 4:20 AM DITCH RIDER Gender Identity Not on file Sexual Orientation [...] Chief Complaint Establish Care (stress test at [place] 08/23 // Echo 08/31) HPI Here for new patient establishment. Transferring care from Dr. Cleaning in [place]. She notes history of type 2 dm. [...] she was discharged to SNF care in [place]. She notes that she developedshortness of breath, ended up calling her , who spoke to the nurse and had her transferred to the ER. She was diagnosed with DVT and PEs, and she was transferred to the ICU. Upon completion ofher stay, she was discharged back to the SNF for rehabilitation. She notes history of afib. She has a application architect, and they have a pending PET/CT stress test this week. she notes a remote history of a cardiac ablation. She notes history of thyroid problems. She states that for years she's had a thyroid nodule on the left lobe, diagnosed and treated by Dr. Serrano, a doctor who was across the street from [facility].She notes that he did radioactive treatment and [...] Gatherings with Friends and Family: ??? Attends Gnosticist Services: ??? Active Member of Clubs or [...] long-term current use of insulin ([facility]) Assessment & Plan: Fasting labs entered, will notify patient of results as available She will work on lower carb diet Encouraged her to find a pool to exercise in as she has difficulty with left knee/falling Orders: - Hemoglobin A1c; Future Essential hypertension Assessment & Plan: Managed by application architect, continue medication same at this time Vitamin [...] fibrillation (CMS/HCC) Assessment & Plan: Managed by application architect, has pet/ct stress this week. Thyroid nodule [...] CDT Associated Problem(s): Essential hypertension Managed by application architect, continue medication same at this time * Assessment & Plan Note - Ryann Ayala PA - 08/21/2020 4:37 PM CDT Associated Problem(s): Acquired hypothyroidism Fasting labs entered, will notify patient of results as available * Assessment & Plan Note - Ryann Ayala PA - 08/21/2020 4:37 PM CDT Associated Problem(s): Longstanding persistent atrial fibrillation (CMS/HCC) (HCC) Managed by application architect, has pet/ct stress this week. * Assessment [...] long-term current use of insulin ([facility]) FERRITIN Routine 08/31/2020 9:18 AM [...] Final Result Performing Organization Address [facility] Co de Phone Number [facility] [address] [place] [address] * Ferritin (08/31/2020 9:18 AM CDT) Pathologist [facility] Ferritin 20 16 - 288 ng/mL [facility] Blood specimen (specimen) 08/31/2020 9:18 AM CDT 08/31/2020 9:18 AM CDT Ryann RASHID LAB BLOOD ORDERABLES Final Result Performing Organization Address [facility] de Phone Number [employer] [facility] [facility] [address] [place] [address] * T3, free (08/31/2020 9:18 AM CDT) Pathologist [facility] Free T3 3.0 2.3 - 4.2 pg/mL [facility] Blood specimen (specimen) 08/31/2020 9:18 AM CDT 08/31/2020 9:18 AM CDT Ryann RASHID LAB BLOOD ORDERABLES Final Result Performing Organization Address [facility] Co de Phone Number [facility] [address] [place] [address] * T4, free (08/31/2020 9:18 AM CDT) Free T4 1.1 0.8 - 1.8 ng/dL [facility] Blood specimen (specimen) 08/31/2020 9:18 AM CDT 08/31/2020 9:18 AM CDT Ryann RASHID LAB BLOOD ORDERABLES Final Result [facility] [address] [place] [address] * TSH (08/31/2020 9:18 AM CDT) Pathologist [facility] TSH 2.24 0.40 - 4.50 mIU/L [facility] Blood specimen (specimen) 08/31/2020 9:18 AM CDT 08/31/2020 9:18 AM CDT Ryann RASHID LAB BLOOD ORDERABLES Final Result Performing Organization Address [facility]/ZIP Co de Phone Number [facility] [place] [address] * (ABNORMAL) Hemoglobin A1c (08/31/2020 9:18 AM CDT) Pathologist [facility] Hgb A1C 7.9(H) <5.7 % of total Hgb [facility] Blood specimen (specimen) 08/31/2020 9:18 AM CDT 08/31/2020 9:18 AM CDT Ryann RASHID LAB BLOOD ORDERABLES Final Result Performing Organization Address [facility]/ZIP Co de Phone Number [facility] [address] [address] documented in this encounter Visit Diagnoses Diagnosis Encounter to establish care- Primary BMI 36.0-36.9,adult Obesity (BMI 30-39.9) Hypothyroidism, unspecified type Type 2 diabetes mellitus without complication, without long-term current use of insulin ([facility]) (HCC) Essential hypertension Unspecified essential hypertension Vitamin D deficiency Sleep disturbance Unspecified sleep disturbance Anxiety Anxiety state, unspecified Episode of recurrent major depressive disorder, unspecified depression episode severity (HCC) Paroxysmal atrial fibrillation ([facility]) (HCC) Atrial fibrillation Thyroid nodule 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
--- OUTSIDE RECORDS SUMMARY | 2024-03-25 11:03 | XMS_ITS | Encounter Summary ---
Author Organization [facility] Address [address] [place] [address] Phone Care Team Providers Care Digital Forensic Analyst Name Role Phone Hermila Calhoun MD, Wilber A. Primary Care Provider Encounter Details Date Type Department Care Team (Late st Contact Info) Description 08/05/[address] [facility] Cardiology [address] [facility] Advanced Medicine 8th [place] [address] Cathleen Walker MD [address] [facility] [address] [place], [place] [id number] Social History Tobacco Use Types Packs/Day Years Used Date Smoking Tobacco: Never Smokeless Tobacco: Never Alcohol Use Standard Drinks/Week Comments Yes 0 (1 standard drink = 0.6 oz pur e alcohol) 1/mo Comments No Sex and Gender Information Value Date Recorded Sex Assigned at Not on file Legal Sex Female 4:20 AM FIBRE OPTICS JOINTER Gender Identity Not on file Sexual Orientation [...] filedocumented in this encounter Care Teams Digital Forensic Analyst Relationship Specialty Start Date End Date Wilber Cleaning Jr., MD [address] [place] [address] PCP - General 07/03/16 07/15/20 documented as of this encounter
--- OUTSIDE RECORDS SUMMARY | 2024-03-25 11:03 | XMS_ITS | Encounter Summary ---
Author Organization [facility] Address [address] [place] [address] Care Team Providers Care Body Art Technician Name Role Phone Ryann Galdamez Primary Care Provider [phone]- [phone] Ryann Galdamez Primary Care Provider +1- [phone] Chris Mendes MD Unavailable [phone] Keli Orozco RN Unavailable Unavailable Alysa Newton RN Unavailable [phone] Cuba Larsen MD Primary Care Provider Keli Orozco RN Unavailable Unavailable Keli Orozco RN Unavailable Unavailable Tami Mcknight RN Unavailable Unavailab le Encounter Details Date Type Department Care Team (Late st Contact Info) Description 08/17/2020 Telephone [facility] [address] [place] [address] Araceli Arita, RT Social History [...] on file 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 Gender Identity Not on file Sexual Orientation Not on file documented as of this encounter Plan of Treatment Not on file documented as of this encounter Visit Diagnoses Not on filedocumented in this encounter Care Teams Body Art Technician Relationship Specialty Start Date End Date Ryann Galdamez PA PCP - General Learning Strategist 07/16/20 04/01/21 Ryann Galdamez PA PCP - General Learning Strategist 04/02/21 01/22/22 Cuba Larsen MD [address] [address] PCP - General Family Medicine 01/23/22 Chris Mendes MD Referring Physician Cardiology 12/23/21 Keli Orozco, busboyVerification Manager Cardiology 12/23/21 04/15/23 Alysa Newton, RN [address] [address] Verification Manager Cardiology 12/23/21 Keli Orozco, hypercil core transformer assembler Failure Coordinator 04/02/23 4 Keli Orozco, hypercil core transformer assembler Failure Coordinator Transplant 04/15/23 Tami Mcknight RN Heart Failure Coordinator Cardiology 09/14/23 documented as of this encounter
--- OUTSIDE RECORDS SUMMARY | 2024-03-25 11:03 | XMS_ITS | Encounter Summary ---
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
--- OUTSIDE RECORDS SUMMARY | 2024-03-25 11:03 | XMS_ITS | Encounter Summary ---
Author Organization [facility] Address [address] [place] [address] Phone Care Team Providers Care Laborer Airport Maintenance Name Role Phone Hermila Calhoun MD, Wilber Duckworth. Primary Care Provider Reason for Visit * Reason Onset Date Comments Appointment 12/07/2019 Encounter Details Date Type Department Care Team (Late st Contact Info) Description 12/07/2019 Telephone [facility] Cardiology [address] 8th [place] [address] [place] [address] Lina Juarez Appointment Social History Tobacco Use Types Packs/Day Years Used Date Smoking Tobacco: Never Smokeless Tobacco: Never Alcohol Use Standard Drinks/Week Comments Yes 0 (1 standard drink = 0.6 oz pur e alcohol) 1/mo Comments No Sex and Gender Information Value Date Recorded Sex Assigned at Not on file 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
--- OUTSIDE RECORDS SUMMARY | 2024-03-25 11:03 | XMS_ITS | Encounter Summary ---
Author Organization [facility] Address [address] [place] [address] Phone Care Team Providers Care Alloy Weigher Name Role Phone Ryann Galdamez Primary Care Provider +1- [phone] Encounter Details Date Type Department Care Team (Late st Contact Info) Description 09/03/2020 Orders Only [facility] Cardiology [address] 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 Fasting reference interval For someone without known diabetes, a glucose value >125 mg/dL indicates that they may have diabetes and this should be confirmed with a follow-up test. BUN 20 7 - 25 mg/dL [facility] Creatinine 0.73 0.60 - 0.93 mg/dL [facility] Comment: For patients >49 years of age, the reference limit for Creatinine is approximately 13% higher for people identified as -Palestinian. eGFR NON-AFR. PALAUAN 78 > OR = 60 mL/min/1 .73m2 [facility] EGFR 91 > OR = 60 mL/min/1 .73m2 [facility] BUN/creat ratio NOT APPLICABLE 6 - 22 (calc) [facility] Sodium 135 135 - 146 mmol/L [facility] Potassium, pl 5.1 3.5 - 5.3 mmol/L [facility] Chloride 102 98 - 110 mmol/L [facility] CO2 25 20 - 32 mmol/L [facility] Calcium 10.0 8.6 - 10.4 mg/dL [facility] Blood specimen (specimen) 09/10/2020 9:03 AM CDT 09/10/2020 9:03 AM CDT Cathleen Mccormick MD LAB BLOOD ORDERA BLES Final Result [facility] [id number] [address] [id number] documented in this encounter Visit Diagnoses Diagnosis Chronic heart failure with preserved ejection fraction (CMS/HCC) (HCC)- Primary documented in this encounter Care Teams Alloy Weigher Relationship Specialty Start Date End Date Ryann Galdamez PA PCP - General Splicer Operator 07/16/20 04/01/21 documented as of this encounter
--- OUTSIDE RECORDS SUMMARY | 2024-03-25 11:03 | XMS_ITS | Encounter Summary ---
Author Organization [facility] Address [address] [place] [address] Phone Care Team Providers Care Health Assistant Name Role Phone Hermila Calhoun MD, Wilber Martinez Primary Care Provider Reason for Visit * Consultation (Routine) - Canceled Specialty Diagnoses / Procedures Referred By Contfred t Referred To Contact Cardiology Diagnoses Chronic diastolic heart failure (HCC) [place] [address] [place] [address] Phone: tel: fax: [facility] (All Locations) Referral ID Status Reason Start Date Expiration Date Visits Requested Visits Authorized [id number] Canceled Specialty Services Required 12/05/2019 03/15/2020 2 2 Encounter Details Date Type Department Care Team (Late st Contact Info) Description 01/13/2020 8:50 AM CDT Telemedicine [facility] Cardiology [address] 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 The patient visit started at 0915 and ended at 926. Total encounter time was 15 minutes, which includes time spent today on pre charting, the patient encounter, and post charting. The patient: has been informed that the visit may not be secure and acknowledged the information. The option of participating in a telephone or video visit during the [facility] emergencywas explained to them. After being given [...] documented as of this encounter Care Teams Health Assistant Relationship Specialty Start Date End Date [place] Jr., [place] [address] [place] [address] PCP - General 07/03/16 07/15/20 documented as of this encounter
--- OUTSIDE RECORDS SUMMARY | 2024-03-25 11:03 | XMS_ITS | Encounter Summary ---
Author Organization [facility] Address [address] [place] [address] Phone Care Team Providers Care Results Technician Name Role Phone Ryann Galdamez Primary Care Provider +1- [phone] Encounter Details Date Type Department Care Team (Late st Contact Info) Description 08/08/2020 Telephone [facility] Cardiology [address] [facility] Advanced Medicine 8th [place] [address] [place] [address] Cathleen Walker MD 49[address] [facility] [address] [place] [address] Social History Tobacco Use Types [...] on file 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 Gender Identity Not on file Sexual Orientation Not on file documented as of this encounter Miscellaneous Notes * Telephone Encounter - Paulina Bright RN - 08/08/2020 3:19 PM CDT Spoke w/ pt She will cont meds as listed and discussed * Telephone Encounter - Cathleen Walker MD - 08/08/2020 2:11 PM CDT No additional changes for now * Telephone Encounter - aPulina Bright RN - 08/08/2020 2:05 PM CDT [...] on filedocumented in this encounter Care Teams Results Technician Relationship Specialty Start Date End Date Ryann Galdamez PA PCP - General Health Tech 07/16/20 04/01/21 documented as of this encounter
--- OUTSIDE RECORDS SUMMARY | 2024-03-25 11:03 | XMS_ITS | Encounter Summary ---
Author Organization [facility] Address [address] [place] [address] Phone Care Team Providers Care Cabinet And Trim Installer Name Role Phone Ryann Galdamez Primary Care Provider +1- [phone] Encounter Details Date Type Department Care Team (Late st Contact Info) Description 08/29/[address] 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 Gender Identity Not on file Sexual Orientation Not on file documented as of this encounter Miscellaneous Notes * Telephone Encounter - Paulina Bright RN - 09/04/2020 5:08 PM CDT See other note, having cath 09/13 * Telephone Encounter - Paulina Bright RN - 08/29/2020 11:31 AM CDT Spoke w/ pt She will start meds, but needs to call back about [facility] dates 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 needs to make sure when will work for her/him She will call back by Thursday w/ dates * Telephone Encounter - Paulina Bright RN - 08/29/2020 11:[address] Walker: Mild LV dysfunction and moderate ischemia Refer for [facility] Start asa 81 mg daily and imdur 15 mg daily * Telephone Encounter - Alise Anderson - 08/29/2020 11:15 AM CDT ABE WOULD LIKE STRESS TEST RESULTS documented in this encounter Plan of Treatment Not on file documented as of this encounter Visit Diagnoses Not on filedocumented in this encounter Care Teams Cabinet And Trim Installer Relationship Specialty Start Date End Date Ryann Galdamez PA PCP - General Parcel Post Weigher 07/16/20 04/01/21 documented as of this encounter
--- OUTSIDE RECORDS SUMMARY | 2024-03-25 11:03 | XMS_ITS | Encounter Summary ---
Author Organization [facility] Address [address] [place] [address] Phone Care Team Providers Care Justice Court Judge Name Role Phone Hermila Calhoun MD, Wilber A. Primary Care Provider Encounter Details Date Type Department Care Team (Late st Contact Info) Description 08/15/2019 Telephone [facility] Cardiology [address] [facility] Advanced Medicine 8th [place] [address] [place] [address] Cathleen Walker MD 49[address] [facility] [address] [place], [place] [id number] Social History Tobacco Use Types Packs/Day Years Used Date Smoking Tobacco: Never Smokeless Tobacco: Never Alcohol Use Standard Drinks/Week Comments Yes 0 (1 standard drink = 0.6 oz pur e alcohol) 1/mo Comments No Sex and Gender Information Value Date Recorded Sex Assigned at Not on file 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
--- OUTSIDE RECORDS SUMMARY | 2024-03-25 11:03 | XMS_ITS | Encounter Summary ---
Author Organization [facility] Address [address] [place] [address] Phone Care Team Providers Care Body Former Name Role Phone Hermila Calhoun MD, Wilber Martinez Primary Care Provider Reason for Visit * (Routine) - Closed Specialty Diagnoses / Procedures Referred By Contac t Referred To Contact Diagnoses Atrial fibrillation (CMS/HCC) (HCC) Procedures Extended/Chcf Holter Patch Cassandra Fish MD Phone: tel: fax: [address] [address] Referral ID Status Reason Start Date Expiration Date Visits Re quested Visits Authorized [id number] Closed 10/07/2019 11/05/2020 1 1 Encounter Details Date Type Department Care Team (Latest Contact Info) Description 10/07/2019 12:00 PM CDT Ancillary Procedure 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 Gender Identity Not on file Sexual Orientation Not on file documented as of this encounter Plan of Treatment Not on file documented as of this encounter Procedures Procedure Name Priority Date/Time Associated Diagnosis Comments EXTENDED/ASSISTED HOLTER PATCH Routine 10/07/2019 12:00 PM CDT Atrial fibrillation (CMS/HCC) documented in this encounter Results * Extended/Chcf Holter Patch (10/07/2019 12:00 PM CDT) Anatomical Region Laterality Modality Electrocardiogra phy 10/07/2019 12:0 0 PM CDT Narrative 10/27/2019 11:19 AM CDT Patient name: Prema Pearce Date of test: 10/07/2019 Type of Test: [facility] #: 0 ?Location: [facility] Heart and Vascular : 1940 ??Age: 79 ??Sex: F Ref Physician(s): CASSANDRA FISH MD Interpreted by: Frank Horn MD Hook-Up Tech: Mary Jane Cortes Reason for Test: Hook-up Tech: Mary Jane Cortes Monitor Serial#: [id number] Case#: [id number] Diary Instruction: Yes Hook-up Tech Comment: Date Time Hooked-up: 10/07/2019 00:00:00 Monitor Returned: 10/27/2019 Recording Started: 10/14/2019 09:00:40 Recording Ended: 10/21/2019 09:00:40 Test Duration (hrs:min): 168:00 Period Analyzed (hrs:min): 129:29 Quality: STATISTICS: Events: 0 Total QRS: 210791 Vent. Beats: 172 Supravent. Beats: 0 Avg [...] 0 sec at Afib/Aflutter: Afib: 1 episodes 42427 min Maximum: 138 bpm Minimum: 59 bpm SCANNING SUMMARY: : There were 142726 QRS complexes detected. ??Of these, there were [...] was 1 Afib Episode with total duration 56241.5(100%) minutes with Max: 138 bpm , Min: 59 bpm. and Av bpm. The longest Afib was 91227.5 minutes. The AF [place] was 100% with 0%<59 bpm and 13%>100 bpm. ?? Preliminary component technician interpretation: Sustained atrial fibrillation with occurrences [...] Date of test: 10/07/2019 Type of Test: [facility] #: 0 Location: [facility] Heart and Vascular : 1940 Age: 79 Sex: F Ref Physician(s): CASSANDRA FISH MD Interpreted by: Frank Horn MD Hook-Up Tech: Barnebys Reason for Test: Hook-up Tech: Barnebys Monitor Serial#: [id number] Case#: [id number] Diary Instruction: Yes Hook-up Tech Comment: Date Time Hooked-up: 10/07/2019 00:00:00 Monitor Returned: 10/27/2019 Recording Started: 10/14/2019 09:00:40 Recording Ended: 10/21/2019 09:00:40 Test Duration (hrs:min): 168:00 Period Analyzed (hrs:min): 129:29 Quality: STATISTICS: Events: 0 Total QRS: 828961 Vent. Beats: 172 Supravent. Beats: 0 Avg [...] 0 sec at Afib/Aflutter: Afib: 1 episodes 57616 min Maximum: 138 bpm Minimum: 59 bpm SCANNING SUMMARY: : There were 315998 QRS complexes detected. Of these, there were [...] was 1 Afib Episode with total duration 91164.5(100%) minutes with Max: 138 bpm , Min: 59 bpm. and Av bpm. The longest Afib was 02461.5 minutes. The AF [place] was 100% with 0%<59 bpm and 13%>100 bpm. Preliminary component technician interpretation: Sustained atrial fibrillation with occurrences [...] fibrillation documented in this encounter Care Teams Body Former Relationship Specialty Start Date End Date Wilber Cleaning Jr., MD [facility] [place] [address] PCP - General 07/03/16 07/15/20 documented as of this encounter
--- OUTSIDE RECORDS SUMMARY | 2024-03-25 11:03 | XMS_ITS | Encounter Summary ---
Author Organization [facility] Address [address] [place] [address] Phone Care Team Providers Care Machine Sign Writer Name Role Phone Hermila Calhoun MD, [...] Doppler/CF Cassandra Fish MD Phone: tel: fax: [facility] (All Locations) Referral ID Status Reason Start Date Expiration Date Visits Re quested Visits Authorized [id number] Closed 07/29/2019 2021 1 1 Encounter Details Date Type Department Care Team (Late st Contact Info) Description 08/18/2019 11:30 AM CDT Ancillary Procedure [facility] [address] [facility] [address] [place] [address] Cassandra Fish MD 49[address] [facility] [address] [place] [address] Atrial fibrillation, unspecified type (CMS/HCC); Chronic saddle [...] file 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 Contrast Administered by: Tami Bush RN Supervised/Interpreted by: Jose Antonio ??MD Elisabet Diagnosis: Location: [facility] Reason for test: heart failure MV Structure: [...] 2=Hypo 3=Akinetic 4=Dyskin./Aneurysm 0=Not visualized) Parasternal [place]:MAS=1 BAS=1 MIL=1 NIGHAT=1 Parasternal [place]:MAS=1 MIS=1 KS=1 MIL=1 MAL=1 MA=1 Apical 4 Chambers:=1 MIS=1 BIS=1 BAL=1 MAL=1 AL=1 AC=1 Apical 2 Chambers:AI=1 KS=1 BI=1 BA=1 MA=1 AA=1 AC=1 LV Global [...] Elisabet By signing this report, the attending dental ceramist helper certifies that he or she has personally supervised and interpreted the echocardiogram and has reviewed and or edited and agrees with the written comments contained within the report. Procedure Note Jose Antonio Bhandari MD - 08/18/2019 Patient name: Prema Pearce Date of test: 08/18/2019 Type of test: [facility] #: [id number] Date of : 1940 (F) Tests Superintendent: OSEI Rondon Referring Physician: CASSANDRA FISH MD Contrast Agent: 1.5 ml Optison Administered, (1.5 ml wasted). Contrast Administered by: Tami Bush RN Supervised/Interpreted by: Jose Antonio Bhandari MD Diagnosis: Location: [facility] Reason for test: heart failure MV Structure: [...] 2=Hypo 3=Akinetic 4=Dyskin./Aneurysm 0=Not visualized) Parasternal [place]:MAS=1 BAS=1 MIL=1 NIGHAT=1 Parasternal [place]:MAS=1 MIS=1 KS=1 MIL=1 MAL=1 MA=1 Apical 4 Chambers:=1 MIS=1 BIS=1 BAL=1 MAL=1 AL=1 AC=1 Apical 2 Chambers:AI=1 KS=1 BI=1 BA=1 MA=1 AA=1 AC=1 LV Global [...] MD By signing this report, the attending dental ceramist helper certifies that he or she has [...] 08/18/2019 documented in this encounter Care Teams Machine Sign Writer Relationship Specialty Start Date End Date Wilber Cleaning Jr., MD [address] [place] [address] PCP - General 07/03/16 07/15/20 documented as of this encounter
--- OUTSIDE RECORDS SUMMARY | 2024-03-25 11:03 | XMS_ITS | Encounter Summary ---
Author Organization [facility] Address [address] [place] [address] Care Team Providers Care Linotyper Name Role Phone Ryann Galdamez Primary Care Provider +1- [phone] Reason for Referral * MRI/CAT/PET Scan (Routine) - Closed Specialty Diagnoses / Procedures Referred By Indra t Referred To Contact Radiology Diagnoses Dyspnea, unspecified type Chronic heart failure with preserved ejection fraction (CMS/HCC) (HCC) Procedures PET/CT Myocardial Perfusion Imaging (Multiple) Cathleen Walker MD Phone: tel: fax: [address] [address] Referral ID Status Reason Start Date Expiration Date Visits Re quested Visits Authorized [id number] Closed 08/23/2020 11/21/2020 2 2 Reason for Visit * MRI/CAT/PET Scan (Routine) - Closed Specialty Diagnoses / Procedures Referred By Indra muñoz Referred To Contact Radiology Diagnoses Dyspnea, unspecified type Chronic heart failure with preserved ejection fraction (CMS/HCC) (HCC) Procedures PET/CT Myocardial Perfusion Imaging (Multiple) Cathleen Walker MD Phone: tel: fax: [facility] [address] [facility] [place] [address] Referral ID Status Reason Start Date Expiration Date Visits Re quested Visits Authorized [id number] Closed 08/23/2020 11/21/2020 2 2 Encounter Details Date Type Department Care Team (Late st Contact Info) Description 08/23/2020 1:54 PM CDT - 08/23/2020 11:59 PM CDT Hospital Encounter [facility] [address] [place] [address] Cathleen Walker MD 49[address] [facility] 8 [facility] [place] [id number] Dyspnea, unspecified type; Chronic heart failure with [...] file 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
--- OUTSIDE RECORDS SUMMARY | 2024-03-25 11:03 | XMS_ITS | Encounter Summary ---
Author Organization [facility] Address [address] [place] [address] Phone Care Team Providers Care Plan Manager Name Role Phone Hermila Calhoun MD, Wilber A. Primary Care Provider Encounter Details Date Type Department Care Team (Late st Contact Info) Description 11/02/2019 Telephone [facility] Cardiology [address] [facility] Advanced Medicine 8th [place] [address] [place] [address] Cathleen Walker MD 49[address] [facility] [address] [place], [place] [id number] Social History Tobacco Use Types Packs/Day Years Used Date Smoking Tobacco: Never Smokeless Tobacco: Never Alcohol Use Standard Drinks/Week Comments Yes 0 (1 standard drink = 0.6 oz pur e alcohol) 1/mo Comments No Sex and Gender Information Value Date Recorded Sex Assigned at Not on file 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
--- OUTSIDE RECORDS SUMMARY | 2024-03-25 11:03 | XMS_ITS | Encounter Summary ---
Author Organization [facility] Address [address] [place] [address] Phone Care Team Providers Care Technology Integration Specialist Name Role Phone Ryann Galdamez Primary Care Provider +1- [phone] Encounter Details Date Type Department Care Team (Late st Contact Info) Description 09/03/2020 Telephone [facility] Cardiology 49[address] [facility] Advanced Medicine 8th [place] [address] Cathleen Walker MD 49[address] [facility] [address] [place] [address] Social History Tobacco Use Types [...] on file 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
--- OUTSIDE RECORDS SUMMARY | 2024-03-25 11:03 | XMS_ITS | Encounter Summary ---
Author Organization [facility] Address [address] [place] [address] Phone Care Team Providers Care Bicycle Taxi Driver Name Role Phone Hermila Calhoun MD, Wilber Martinez Primary Care Provider Encounter Details Date Type Department Care Team (Late st Contact Info) Description 01/13/2020 Orders Only [facility] Cardiology [address] [facility] Advanced Medicine 8th [place] [address] [place] [address] Cathleen Walker MD 49[address] [facility] [address] [place] [address] Social History Tobacco Use Types Packs/Day Years Used Date Smoking Tobacco: Never Smokeless Tobacco: Never Alcohol Use Standard Drinks/Week Comments Yes 0 (1 standard drink = 0.6 oz pur e alcohol) 1/mo Comments No Sex and Gender Information Value Date Recorded Sex Assigned at Not on file Legal Sex Female 4:20 AM CLINICAL LABORATORY MEDICAL DIRECTOR Gender Identity Not on file Sexual [...] documented as of this encounter Care Teams Bicycle Taxi Driver Relationship Specialty Start Date End Date Wilber Cleaning Jr., MD [address] [place] [address] PCP - General 07/03/16 07/15/20 documented as of this encounter
--- OUTSIDE RECORDS SUMMARY | 2024-03-25 11:03 | XMS_ITS | Encounter Summary ---
Author Organization [facility] Address [address] [place] [address] Phone Care Team Providers Care Sales Rep Name Role Phone Hermila Calhoun MD, Wilber A. Primary Care Provider Reason for Visit * Reason Onset Date Comments Med Refill 03/21/2020 Encounter Details Date Type Department Care Team (Late st Contact Info) Description 03/21/2020 Telephone 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 Gender Identity Not on file Sexual Orientation Not on file documented as of this encounter Miscellaneous Notes * Telephone Encounter - Olivia Kwong RMA - 03/22/2020 12:17 PM VISUAL DESIGNER refilled AL DESIGNER * Telephone Encounter - Paulina Bright RN - 03/22/2020 11:53 AM VISUAL DESIGNER Please fill both, thanks AL DESIGNER * Telephone Encounter - Cathleen Walker MD - 03/22/2020 9:27 AM CST Okay to refill potassium and take furosemide daily AL DESIGNER * Telephone Encounter - Paulina Bright RN - 03/21/2020 4:04 PM VISUAL DESIGNER Per chart pt to take 20meq BID Not previously ordered by you Ok to fill? Pt taking lasix 40mg daily AL DESIGNER * Telephone Encounter - Olivia Kwong RMA - 03/21/2020 3:57 PM VISUAL DESIGNER Ok to refill under please advise thanks AL DESIGNER * Telephone Encounter - Raiza Dangelo - 03/21/2020 2:31 PM CST Images from the original note were not included. AL DESIGNER documented in this encounter Plan of Treatment Not on file documented as of this encounter Visit Diagnoses Not on filedocumented in this encounter Care Teams Sales Rep Relationship Specialty Start Date End Date Wilber Cleaning Jr., MD [address] [place] [address] PCP - General 07/03/16 07/15/20 documented as of this encounter
--- OUTSIDE RECORDS SUMMARY | 2024-03-25 11:03 | XMS_ITS | Encounter Summary ---
Author Organization [facility] Address [address] [place] [address] Phone Care Team Providers Care Business Operations Director Name Role Phone Hermila Calhoun MD, Wilber Martinez Primary Care Provider Reason for Visit * Reason Onset Date Comments Med Refill 06/20/2020 Encounter Details Date Type Department Care Team (Late st Contact Info) Description 06/20/2020 Telephone [facility] Cardiology [address] [facility] 8th [place] [address] [place] [address] Cathleen Walker MD [address] [facility] [address] [place], [place] [id number] Med Refill Social History Tobacco Use Types Packs/Day Years Used Date Smoking Tobacco: Never Smokeless Tobacco: Never Alcohol Use Standard Drinks/Week Comments Yes 0 (1 standard drink = 0.6 oz pur e alcohol) 1/mo Comments No Sex and Gender Information Value Date Recorded Sex Assigned at Not on file 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 Gender Identity Not on file Sexual [...] CDT Aaron Rosuvastatin 200mg 1/D # 90 [facility] documented in this encounter Plan of Treatment Not on file documented as of this encounter Visit Diagnoses Not on filedocumented in this encounter Discontinued Medications Medication Sig Discontinue Reason Start Date End Da te rosuvastatin (CRESTOR) 20 mg tablet Take 1 tablet (20 mg total) by mouth daily Reorder 06/14/2019 06/20/2020 documented as of this encounter Care Teams Business Operations Director Relationship Specialty Start Date End Date Wilber Cleaning Jr., MD [facility] [place] [address] PCP - General 07/03/16 07/15/20 documented as of this encounter
--- OUTSIDE RECORDS SUMMARY | 2024-03-25 11:04 | XMS_ITS | Encounter Summary ---
Author Organization [facility] Address [address] [place] [address] Phone Care Team Providers Care Bench Loom Weaver Name Role Phone Hermila Calhoun MD, Wilber Martinez Primary Care Provider Reason for Visit * Reason Comments Post-op Encounter Details Date Type Department Care Team (Late st Contact Info) Description 07/21/2019 10:00 AM CDT Office Visit [facility] Orthopaedic Surgery [address] [facility] 6th [place] [address] [place] [address] Kaveh Charles MD [address] [place] [address] 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 Kaveh Charles M.D. Manager Business Intelligence, Orthopaedic Surgery documented in this encounter Plan [...] 10/09/2022 added in this encounter Care Teams Bench Loom Weaver Relationship Specialty Start Date End Date Wilber Cleaning Jr., MD [address] [place] [address] PCP - General 07/03/16 07/15/20 documented as of this encounter
--- OUTSIDE RECORDS SUMMARY | 2024-03-25 11:04 | XMS_ITS | Encounter Summary ---
Author Organization [facility] Address [address] 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
--- OUTSIDE RECORDS SUMMARY | 2024-03-25 11:04 | XMS_ITS | Encounter Summary ---
Author Organization [facility] Address [address] [place] [address] Phone Care Team Providers Care Chemical Machine Tender Name Role Phone Hermila Calhoun MD, Wilber Duckworth. Primary Care Provider Encounter Details Date Type Department Care Team (Late st Contact Info) Description 06/28/2019 Telephone [facility] Cardiology [address] 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
--- OUTSIDE RECORDS SUMMARY | 2024-03-25 11:04 | XMS_ITS | Encounter Summary ---
Author Organization [facility] Address [address] [place] [address] Phone Care Team Providers Care Garment Looper Name Role Phone Hermila Calhoun MD, Oscar [...] Doppler/CF Cathleen Fish MD Phone: tel: fax: [facility] (All Locations) Referral ID Status Reason Start Date Expiration Date Visits Re quested Visits Authorized [id number] Closed 07/29/2019 2021 1 1 Reason for Visit * Cardiology (Routine) - Closed Specialty Diagnoses / Procedures Referred By Contac t Referred To Contact Cardiology Diagnoses Atrial fibrillation, unspecified type (HCC) Wilber Cleaning Jr., MD [facility] [place] [address] Phone: tel: fax: Cathleen Fish MD [address] [place] [address] Phone: tel: fax: Referral ID Status Reason Start Date Expiration Date V isits Requested Visits Authorized [id number] Closed Specialty Services Required 07/20/2019 11/15/2019 3 3 Encounter Details Date Type Department Care Team (Late st Contact Info) Description 07/29/2019 10:50 AM CDT Office Visit [facility] Cardiology [address] [facility] 8th [place] [address] [place] [address] Cathleen Fish MD [address] [facility] [place] [address] Chronic saddle pulmonary embolism with acute cor [...] file 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 Mod LAE and mild-to-mod MR. Mild TR/AR with est PA pressure 41/9 mm Hg [...] BLOOD ORDERA BLES Final Result [facility] [id number] [place] [address] * (ABNORMAL) Comprehensive metabolic panel (08/23/2019 11:18 AM CDT) Glucose 139(H) 65 - 99 mg/dL [facility] Comment: ? Fasting reference interval For someone without known diabetes, a glucose value >125 mg/dL indicates that they may have diabetes and this should be confirmed with a follow-up test. BUN 17 7 - 25 mg/dL [facility] Creatinine 0.66 0.60 - 0.93 mg/dL [facility] Comment: For patients >49 years of age, the reference limit for Creatinine is approximately 13% higher for people identified as -Niuean. eGFR NON-AFR. ZIMBABWEAN 85 > OR = 60 mL/min/1 .73m2 [facility] EGFR 98 > OR = 60 mL/min/1 .73m2 [facility] BUN/creat ratio NOT APPLICABLE 6 - 22 (calc) [facility] Sodium 138 135 - 146 mmol/L [facility] Potassium, pl 4.1 3.5 - 5.3 mmol/L [facility] Chloride 101 98 - 110 mmol/L [facility] CO2 29 20 - 32 mmol/L [facility] Calcium 9.8 8.6 - 10.4 mg/dL [facility] Protein, sr 7.2 6.1 - 8.1 g/dL [facility] Albumin 4.2 3.6 - 5.1 g/dL [facility] GLOBULIN 3.0 1.9 - 3.7 g/dL (calc) [facility] Alb/glob ratio 1.4 1.0 - 2.5 (calc) [facility] Bilirubin, total 0.4 0.2 - 1.2 mg/dL [facility] Alk phos 125 37 - 153 U/L [facility] AST 16 10 - 35 U/L [facility] ALT (SGPT) 12 6 - 29 U/L [facility] Blood specimen (specimen) 08/23/2019 11:18 AM CDT 08/23/2019 11:19 AM CDT us Cathleen Mccormick MD LAB BLOOD ORDERA BLES Final Result [facility] [address] [place] [address] * Transthoracic Echo Complete W Doppler/CF (08/18/2019 11:30 AM CDT) Anatomical Region Laterality Modality Ultrasound 08/18/2019 11:3 0 AM CDT Narrative 08/18/2019 2:11 PM CDT Patient name: Prema Pearce Date of test: 08/18/2019 Type of test: TTE w/Doppler [facility] #: [id number] Date of : 1940 (F) Panelboard Tank Pumper: OSEI Rondon Referring Physician: CATHLEEN FISH MD Contrast Agent: 1.5 ml Optison Administered, (1.5 ml wasted). Contrast Administered by: Tami Bush RN Supervised/Interpreted by: Jose Antonio ??MD Elisabet Diagnosis: Location: [facility] Reason for test: heart failure MV Structure: [...] 2=Hypo 3=Akinetic 4=Dyskin./Aneurysm 0=Not visualized) Parasternal Long [place]:MAS=1 BAS=1 MIL=1 NIGHAT=1 Parasternal Short [place]:MAS=1 MIS=1 ME=1 MIL=1 MAL=1 MA=1 Apical 4 [...] Elisabet By signing this report, the attending refund specialist certifies that he or she has personally supervised and interpreted the echocardiogram and has reviewed and or edited and agrees with the written comments contained within the report. Procedure Note Jose Antonio Bhandari MD - 08/18/2019 Patient name: Prema Pearce Date of test: 08/18/2019 Type of test: TTE w/Doppler [facility] #: [id number] Date of : 1940 (F) Panelboard Tank Pumper: OSEI Rondon Referring Physician: CATHLEEN FISH MD Contrast Agent: 1.5 ml Optison Administered, (1.5 ml wasted). Contrast Administered by: Tami Bush RN Supervised/Interpreted by: Jose Antonio Bhandari MD Diagnosis: Location: [facility] Reason for test: heart failure MV Structure: [...] 2=Hypo 3=Akinetic 4=Dyskin./Aneurysm 0=Not visualized) Parasternal Long [place]:MAS=1 BAS=1 MIL=1 NIGHAT=1 Parasternal Short [place]:MAS=1 MIS=1 ME=1 MIL=1 MAL=1 MA=1 Apical 4 [...] MD By signing this report, the attending refund specialist certifies that he or she has personally supervised and interpreted the echocardiogram and has reviewed and or edited and agrees with the written comments contained within the report. Result [facility] Cathleen Mccormick MD CV ECHO PROCEDUR ES [...] 07/29/2019 documented in this encounter Care Teams Garment Looper Relationship Specialty Start Date End Date Wilber Cleaning Jr., MD [address] [place] [address] PCP - General 07/03/16 07/15/20 documented as of this encounter
--- OUTSIDE RECORDS SUMMARY | 2024-03-25 11:04 | XMS_ITS | Encounter Summary ---
Author Organization [facility] Address [address] [place] [address] Phone Care Team Providers Care Toe Lining Closer Name Role Phone Hermila Calhoun MD, Wilber A. Primary Care Provider Reason for Visit * Reason Onset Date Comments Scheduling Appointments 07/29/2019 Encounter Details Date Type Department Care Team (Late st Contact Info) Description 07/29/2019 Telephone [facility] Cardiology [address] [facility] Advanced 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
--- OUTSIDE RECORDS SUMMARY | 2024-03-25 11:04 | XMS_ITS | Encounter Summary ---
Author Organization [facility] Address [address] [place] [address] Phone Care Team Providers Care Farm Supervisor Name Role Phone Hermila Calhoun MD, Wilber Martinez Primary Care Provider Reason for Visit * (Routine) - Closed Specialty Diagnoses / Procedures Referred By Contac t Referred To Contact Diagnoses Persistent atrial fibrillation (HCC) Procedures ECG 12 lead Catarina Huerta MD Phone: tel: fax: [facility] Referral ID Status Reason Start Date Expiration Date Visits Re quested Visits Authorized [id number] Closed 09/07/2018 03/18/2020 1 1 Encounter Details Date Type Department Care Team (Late st Contact Info) Description 06/23/2019 11:45 AM CDT Telemedicine [facility] Orthopaedic Surgery [address] 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 The session started at 12:38PM and ended [...] for any applicable copayments. Yu Swanson M.D. Door Attendant, Orthopaedic Surgery documented in this encounter Miscellaneous [...] Primary documented in this encounter Care Teams Farm Supervisor Relationship Specialty Start Date End Date Wilber Cleaning Jr., MD [address] [place] [address] PCP - General 07/03/16 07/15/20 documented as of this encounter
--- OUTSIDE RECORDS SUMMARY | 2024-03-25 11:04 | XMS_ITS | Encounter Summary ---
Author Organization [facility] Address [address] [place] [address] Phone Care Team Providers Care Fighting Vehicle Infantryman Name Role Phone Hermila Calhoun MD, Wilber A. Primary Care Provider Encounter Details Date Type Department Care Team (Late st Contact Info) Description 07/01/2019 Telephone [facility] Cardiology [address] [facility] Advanced Medicine 8th [place] [address] Cathleen Walker MD [address] [facility] [address] [place], [place] [id number] Social History Tobacco Use Types Packs/Day Years Used Date Smoking Tobacco: Never Smokeless Tobacco: Never Alcohol Use Standard Drinks/Week Comments Yes 0 (1 standard drink = 0.6 oz pur e alcohol) 1/mo Comments No Sex and Gender Information Value Date Recorded Sex Assigned at Not on file Legal Sex Female 4:20 AM HEAD ROSE GROWER Gender Identity Not on file Sexual Orientation [...] on filedocumented in this encounter Care Teams Fighting Vehicle Infantryman Relationship Specialty Start Date End Date Wilber Cleaning Jr., MD [address] [place] [address] PCP - General 07/03/16 07/15/20 documented as of this encounter
--- OUTSIDE RECORDS SUMMARY | 2024-03-25 11:04 | XMS_ITS | Encounter Summary ---
Author Organization [facility] Address [address] [place] [address] Phone Care Team Providers Care Camera Repairer Name Role Phone Hermila Calhoun MD, Wilber Duckworth. Primary Care Provider Encounter Details Date Type Department Care Team (Latest Contact Info) Description 06/28/2019 Anticoagulation Telephone Call [facility] Cardiology [facility] Medical Office Building [address] [place] [address] Cathleen Walker MD [address] [facility] [address] [place] [address] Atrial fibrillation, unspecified type (CMS/HCC) Social History Tobacco Use Types Packs/Day Years Used Date Smoking Tobacco: Never Smokeless Tobacco: Never Alcohol Use Standard Drinks/Week Comments Yes 0 (1 standard drink = 0.6 oz pur e alcohol) 1/mo Comments No Sex and Gender Information Value Date Recorded Sex Assigned at Not on file 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
--- OUTSIDE RECORDS SUMMARY | 2024-03-25 11:04 | XMS_ITS | Encounter Summary ---
Author Organization [facility] Address [address] [place] [address] Phone Care Team Providers Care Dial Screw Assembler Name Role Phone Hermila Calhoun MD, Wilber A. Primary Care Provider Encounter Details Date Type Department Care Team (Late st Contact Info) Description 06/20/2019 Telephone [facility] Cardiology [address] [facility] Medical Office Building [address] [place] [address] Cathleen Walker MD [address] [facility] [address] [place] [address] Social History Tobacco Use Types Packs/Day Years Used Date Smoking Tobacco: Never Smokeless Tobacco: Never Alcohol Use Standard Drinks/Week Comments Yes 0 (1 standard drink = 0.6 oz pur e alcohol) 1/mo Comments No Sex and Gender Information Value Date Recorded Sex Assigned at Not on file Legal Sex Female 4:20 AM FLOATING LABOR GANG SUPERVISOR Gender Identity Not on file Sexual [...] on filedocumented in this encounter Care Teams Dial Screw Assembler Relationship Specialty Start Date End Date Wilber Cleaning Jr., MD [address] [place] [address] PCP - General 07/03/16 07/15/20 documented as of this encounter
--- OUTSIDE RECORDS SUMMARY | 2024-03-25 11:04 | XMS_ITS | Encounter Summary ---
Author Organization [facility] Address [address] [place] [address] Phone Care Team Providers Care Lubrication Worker Name Role Phone Hermila Calhoun MD, Wilber Martinez Primary Care Provider Ryann Galdamez Primary Care Provider [phone] Ryann Galdamez Primary Care Provider [phone]- [phone] Chris Mendes MD Unavailable Keli Orozco RN Unavailable Unavailable Alysa Newton RN Unavailable [phone] Cuba Larsen MD Primary Care Provider [phone] Keli Orozco RN Unavailable Unavailable Keli Orozco RN Unavailable Unavailable Tami Mcknight RN Unavailable Unavailab le Encounter Details Date Type Department Care Team (Late st Contact Info) Description 06/13/2019 Telephone [facility] Cardiology [address] [facility] 8th [place] [address] [place] [address] Cathleen Walker MD [address] [facility] [address] [place] [address] Social History Tobacco Use Types Packs/Day Years Used Date Smoking Tobacco: Never Smokeless Tobacco: Never Alcohol Use Standard Drinks/Week Comments Yes 0 (1 standard drink = 0.6 oz pur e alcohol) 1/mo Comments No Sex and Gender Information Value Date Recorded Sex Assigned at Not on file Legal Sex Female 4:20 AM FROG SHAKER Gender Identity Not on file Sexual Orientation [...] on filedocumented in this encounter Care Teams Lubrication Worker Relationship Specialty Start Date End Date Wilber Cleaning Jr., MD [address] [place] [address] PCP - General 07/03/16 07/15/20 Ryann Galdamez PA [address] [place] [address] PCP - General Political Researcher 07/16/20 04/01/21 Ryann Galdamez PA [address] [place] [address] PCP - General Political Researcher 04/02/21 01/22/22 Cuba Larsen MD [address] [address] PCP - General Family Medicine 01/23/22 Chris Mendes MD [address] [place] [address] Referring Physician Cardiology 12/23/21 Keli Orozco RN Managed Services Sales Consultant Cardiology 12/23/21 04/15/23 Alysa Newton, RN [address] [facility] [address] [place] [address] Managed Services Sales Consultant Cardiology 12/23/21 Keli Orozco, side seam tender Failure Coordinator 04/02/23 4 Keli Orozco, side seam tender Failure Coordinator Transplant 04/15/23 Tami Mcknight side seam tender Failure Coordinator Cardiology 09/14/23 documented as of this encounter
--- OUTSIDE RECORDS SUMMARY | 2024-03-25 11:04 | XMS_ITS | Encounter Summary ---
Author Organization [facility] Address [address] [place] [address] Phone Care Team Providers Care Simulation Engineer Name Role Phone Hermila Calhoun MD, Wilber Martinez Primary Care Provider Encounter Details Date Type Department Care Team (Late st Contact Info) Description 07/13/2019 Telephone [facility] Cardiology [address] [facility] Advanced Medicine 8th [place] [address] [place] [address] Cathleen Walker MD [address] [facility] [address] [place] [address] Social History Tobacco Use Types Packs/Day Years Used Date Smoking Tobacco: Never Smokeless Tobacco: Never Alcohol Use Standard Drinks/Week Comments Yes 0 (1 standard drink = 0.6 oz pur e alcohol) 1/mo Comments No Sex and Gender Information Value Date Recorded Sex Assigned at Not on file 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 Thanks. [...] ID: JAREN ?Name: Julio César Hoang ?Address: [facility] [place] [address] ?Director: Darryl Keys D.O., MPH Cathleen Mccormick MD LAB BLOOD ORDERA BLES Final Result Performing Organization Address [facility] de Phone Number JULIO CÉSAR [facility] - [place] * (ABNORMAL) Pro B-type natriuretic peptide (07/14/2019 11:15 AM CDT) Pathologist [facility] B type natriuretic peptide 428(H) <100 pg/mL [...] ID: JAREN ?Name: Julio César Hoang ?Address: [facility] [address] ?Director: Darryl Keys D.O., MPH Cathleen Mccormick MD LAB BLOOD ORDERA BLES Final Result Performing Organization Address [facility] Co de Phone Number JULIO CÉSAR [facility] - JAREN [place] * (ABNORMAL) CBC with auto differential (07/14/2019 11:15 AM CDT) Pathologist [facility] WBC 7.8 3.8 - 10.8 Thousand/u L [...] AM CDT 07/14/2019 11:16 AM CDT Narrative [facility] - 07/15/2019 12:12 PM CDT FASTING:NO FASTING: NO Resulting Agency Comment Performing Organization Information: ?Site ID: [place] ?Name: [email or web address] ?Address: [address] [place] [address] [place] [address] ?Director: Darryl Keys D.O., MPH Cathleen Mccormick [...] approximately 13% higher for people identified as -Australian. eGFR NON-AFR. [place] 90 > OR = 60 mL/min/1. 73m2 [...] [place] Calcium 9.2 8.6 - 10.4 mg/dL [facility] [place] Protein, sr 6.9 6.1 - 8.1 g/dL [facility] [place] Albumin 3.7 3.6 - 5.1 g/dL [facility] [place] GLOBULIN 3.2 1.9 - 3.7 g/dL (calc) [facility] - [place] Alb/glob ratio 1.2 1.0 - 2.5 (calc) [facility] [place] Bilirubin, total 0.9 0.2 - 1.2 mg/dL [facility] [place] Alk phos 108 37 - 153 U/L [facility] [place] AST 16 10 - 35 U/L [facility] [place] ALT (SGPT) 17 6 - 29 U/L [facility] [place] Blood specimen (specimen) 07/14/2019 11:15 AM CDT 07/14/2019 11:16 AM CDT Narrative [facility] - 07/15/2019 12:12 PM CDT FASTING:NO FASTING: NO Resulting Agency Comment Performing Organization Information: ?[place]: [place] ?Name: [email or web address] ?Address: [address] [address] [place] [address] ?Director: Darryl Keys D.O., MPH Cathleen Mccormick [...] documented as of this encounter Care Teams Simulation Engineer Relationship Specialty Start Date End Date Wilber Cleaning Jr., MD [facility] [place] [address] PCP - General 07/03/16 07/15/20 documented as of this encounter
--- OUTSIDE RECORDS SUMMARY | 2024-03-25 11:04 | XMS_ITS | Encounter Summary ---
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 Procedures XR Knee Left 4 or More Views Kaveh Charles MD Phone: tel: fax: [address] [address] Referral ID Status Reason Start Date Expiration Date Visits Re quested Visits Authorized [id number] Closed 06/10/2019 12/19/2020 1 1 Reason for Visit * Diagnostic Imaging (Routine) - Closed Specialty Diagnoses / Procedures Referred By Indra muñoz Referred To Contact Diagnoses 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 Procedures XR Knee Left 4 or More Views Kaveh Charles MD Phone: tel: fax: [address] [phone] Referral ID Status Reason Start Date Expiration Date Visits Re quested Visits Authorized [id number] Closed 06/10/2019 12/19/2020 1 1 Encounter Details Date Type Department Care Team (Latest Contact Info) Description 07/21/2019 10:06 AM CDT - 07/21/2019 11:59 PM CDT Hospital Encounter [facility] [address] [place] [address] Kaveh Charles MD [address] [place] [address] 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
--- OUTSIDE RECORDS SUMMARY | 2024-03-25 11:05 | XMS_ITS | Encounter Summary ---
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 Aislinn Goldsmith, BRIM EDGE TRIMMER 06/09/2019 06/09/2019 06/09/2019 4:20 PM C DT documented as of this encounter Care Teams Director Of Corporate Sales Relationship Specialty Start Date End Date Wilber Cleaning Jr., MD [address] [place] [address] PCP - General 07/03/16 07/15/20 Ryann Galdamez PA [address] [place] [address] PCP - General Sales Department Supervisor 07/16/20 04/01/21 documented as of this encounter
--- OUTSIDE RECORDS SUMMARY | 2024-03-25 11:05 | XMS_ITS | Encounter Summary ---
Author Organization [facility] Address [address] [place] [address] Phone Care Team Providers Care Video Machines Mechanic Name Role Phone Hermila Calhoun MD, Wilber Martinez Primary Care Provider Encounter Details Date Type Department Care Team (Late st Contact Info) Description 05/30/2019 6:40 AM CDT Ancillary Procedure [facility] Vascular Lab IP [address] [facility] [address] [place] [address] Social History Tobacco Use Types Packs/Day Years Used Date Smoking Tobacco: Never Smokeless Tobacco: Never Alcohol Use Standard Drinks/Week Comments Yes 0 (1 standard drink = 0.6 oz pur e alcohol) 1/mo Comments No Sex and Gender Information Value Date Recorded Sex Assigned at Not on file 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 Findings: Performing Lap Polisher: Ingrid Herman RVT. Right: Duplex scan reveals [...] performed. Electronically Signed By: Emile Zavaleta MD [facility] [phone] 2019-06-02 15:21:38 CDT CC: CC: Procedure Note Emile Zavaleta MD - 06/02/2019 [facility] - Department of Vascular Surgery,Vascular Laboratory [address] [place] [address] Lower Extremity Venous Ultrasound Report Patient Name: EVAN HODGSON A : 1940 (79y 3m) Study Date: 05/30/2019 9:31:52 AM Gender: F Tech: Location: [id number] Ref.Provider: KEANU ESTRADA Quality: Adequate Order Provider: KEANU ESTRADA Procedures: Vascular Report: Venous Duplex imaging was performed bilaterally in the lower extremities.The common femoral, femoral, popliteal, posterior tibial, peroneal veins wereevaluated for patency, spontaneity and phasicity with Doppler, compression and augmentationmaneuvers. Great saphenous vein proximal at the junction was evaluated with compressionmaneuvers. Indications: Other pulmonary embolism without acute cor pulmonale. Findings: Performing Lap Polisher: Ingrid Herman RVT. Right: Duplex scan reveals [...] performed. Electronically Signed By: Emile Zavaleta MD [facility] [phone] 2019-06-02 15:21:38 CDT CC: CC: us Keanu Estrada MD IMG US PROCEDURES Final Res ult documented in this encounter Visit Diagnoses Not on filedocumented in this encounter Care Teams Video Machines Mechanic Relationship Specialty Start Date End Date Wilber Cleaning Jr., MD [address] [place] [address] PCP - General 07/03/16 07/15/20 documented as of this encounter
--- OUTSIDE RECORDS SUMMARY | 2024-03-25 11:05 | XMS_ITS | Encounter Summary ---
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
--- OUTSIDE RECORDS SUMMARY | 2024-03-25 11:05 | XMS_ITS | Encounter Summary ---
Author Organization [facility] Address [address] [place] [address] Care Team Providers Care Artificial Cherry Maker Name Role Phone Hermila Calhoun MD, Wilber Martinez Primary Care Provider Encounter Details Date Type Department Care Team (Latest Contact Info) Description 05/30/2019 12:54 PM CDT - 05/30/2019 11:59 PM CDT Hospital Encounter [facility] Cardiac Diagnostic Lab [address] [place] [address] Keanu Estrada MD [address] [place] [address] Discharge Disposition: Discharge to home or self care Social History Tobacco Use Types Packs/Day Years Used Date Smoking Tobacco: Never Smokeless Tobacco: Never Alcohol Use Standard Drinks/Week Comments Yes 0 (1 standard drink = 0.6 oz pur e alcohol) 1/mo Comments No Sex and Gender Information Value Date Recorded Sex Assigned at Not on file 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
--- OUTSIDE RECORDS SUMMARY | 2024-03-25 11:05 | XMS_ITS | Encounter Summary ---
Author Organization [facility] Address [address] [place] [address] Phone Care Team Providers Care Cocoa Bean Roaster Helper Name Role Phone Hermila Calhoun MD, Wilber A. Primary Care Provider Encounter Details Date Type Department Care Team (Late st Contact Info) Description 06/07/2019 Telephone [facility] Cardiology [address] [facility] Advanced Medicine 8th [place] [address] [place] [address] Cathleen Walker MD [address] [facility] [address] [place], [place] [id number] Social History Tobacco Use Types Packs/Day Years Used Date Smoking Tobacco: Never Smokeless Tobacco: Never Alcohol Use Standard Drinks/Week Comments Yes 0 (1 standard drink = 0.6 oz pur e alcohol) 1/mo Comments No Sex and Gender Information Value Date Recorded Sex Assigned at Not on file 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 Says that the staff there is having a hard time regulating pt's BP and was wondering if we could reach out and see what's going on. If any questions, OK to call but he leaves at 9 AM for an appt. Gives number to the care center as [phone] and says to ask for Shahana Broussard. Says pt is in room 639A. documented in this encounter Plan of Treatment Not on file documented as of this encounter Visit Diagnoses Not on filedocumented in this encounter Care Teams Cocoa Bean Roaster Helper Relationship Specialty Start Date End Date Wilber Cleaning Jr., MD [address] [place] [address] PCP - General 07/03/16 07/15/20 documented as of this encounter
--- OUTSIDE RECORDS SUMMARY | 2024-03-25 11:05 | XMS_ITS | Encounter Summary ---
Author Organization [facility] Address [address] [place] [address] Phone Care Team Providers Care Architectural Designer Name Role Phone Hermila Calhoun MD, Wilber A. Primary Care Provider Encounter Details Date Type Department Care Team (Late st Contact Info) Description 06/08/2019 Telephone [facility] Cardiology [address] [facility] Advanced Medicine 8th [place] [address] [place] [address] Cathleen Walker MD [address] [facility] [address] [place], [place] [id number] Social History Tobacco Use Types Packs/Day Years Used Date Smoking Tobacco: Never Smokeless Tobacco: Never Alcohol Use Standard Drinks/Week Comments Yes 0 (1 standard drink = 0.6 oz pur e alcohol) 1/mo Comments No Sex and Gender Information Value Date Recorded Sex Assigned at Not on file 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 * Telephone Encounter - Brenda Gu [...] - 06/09/2019 12:13 PM CDT Inpatient at [facility] Check on status * Telephone Encounter - Paulina Bright RN - 06/08/2019 2:27 PM CDT Spoke w/ pt , he is aware for pt to go to [facility] * Telephone Encounter - Paulina Bright RN - 06/08/2019 2:25 PM CDT Spoke w/ Latoya, She is the nurse caring for pt She wanted to confirm [facility], as pt asked about [facility] Told her [facility] ED She understands and will proceed to transfer pt * Telephone Encounter - Nita Mosley BS - 06/08/2019 2:24 PM CDT PT'S WANTS TO KNOW WHICH ER THE PT IS GOING TO. PLEASE CALL THE . * Telephone Encounter - Brenda Gu - 06/08/2019 2:12 PM CDT Aaron Klein, patients health and social care teacher is calling back about previous notes. Asking [...] in agreement to send the patient to [facility] ED. I will call [facility] ED * Telephone Encounter - Paulina Bright RN - 06/08/2019 2:[address] Walker is calling the rehab to share her recommendations * Telephone Encounter - Paulina Bright RN - 06/08/2019 1:13 PM CDT Need to call rehab [phone] * Telephone Encounter - Cathleen Walker MD - 06/08/2019 12:57 PM CDT I would like them to send her to the ED for evaluation. Please send to [facility] ED if possible. I cannotmake recommendations based on the information provided, but I am concerned. She was recently discharged with an acute PE and new LV systolic dysfunction, EF 38%. INR was 2.0 on discharge, unclear if she is still therapeutic. * Telephone Encounter - Paulina Bright RN - 06/08/2019 10:22 AM CDT Spoke w/ pt She has d/w the staff at [facility], the acute rehab center, but still feeling the afib and SOB See note from yesterday, they are giving meds as listed in the chart Any recommendations? * Telephone Encounter - Paulina Bright RN - 06/08/2019 10:16 AM CDT Pt is inpatient at acute rehab in [facility] * Telephone Encounter - Yasmin Soto - [...] pt afebrile, without URI signs/symptoms. Aislinn Goldsmith, MANAGEMENT RETAIL INTERN 06/09/2019 06/09/2019 06/09/2019 4:20 PM C DT documented as of this encounter Care Teams Architectural Designer Relationship Specialty Start Date End Date Wilber Cleaning Jr., MD [address] [place] [address] PCP - General 07/03/16 07/15/20 documented as of this encounter
--- OUTSIDE RECORDS SUMMARY | 2024-03-25 11:05 | XMS_ITS | Encounter Summary ---
Author Organization [facility] Address [address] [place] [address] Phone Care Team Providers Care Fitness Floor Attendant Name Role Phone Hermila Calhoun MD, Wilber Duckworth. Primary Care Provider Encounter Details Date Type Department Care Team (Latest Contact Info) Description 06/07/2019 Anticoagulation Telephone Call [facility] Cardiology [address] [facility] Medical Office Building [address] [place] [address] Cathleen Walker MD [address] [facility] [address] [place] [address] Atrial fibrillation, unspecified type (CMS/HCC) Social History Tobacco Use Types Packs/Day Years Used Date Smoking Tobacco: Never Smokeless Tobacco: Never Alcohol Use Standard Drinks/Week Comments Yes 0 (1 standard drink = 0.6 oz pur e alcohol) 1/mo Comments No Sex and Gender Information Value Date Recorded Sex Assigned at Not on file 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
--- OUTSIDE RECORDS SUMMARY | 2024-03-25 11:05 | XMS_ITS | Encounter Summary ---
Author Organization [facility] Healthcare Address [address] [place] [address] Care Team Providers Care Wallpaper Hanger Helper Name Role Phone Hermila Calhoun MD, Wilber Martinez Primary Care Provider Ryann Galdamez Primary Care Provider [phone] Ryann Galdamez Primary Care Provider [phone] Chris Mendes MD Unavailable [phone] Keli Orozco RN Unavailable Unavailable Alysa Newton RN Unavailable [phone] Cuba Larsen MD Primary Care Provider [phone] Keli Orozco RN Unavailable Unavailable Keli Orozco RN Unavailable Unavailable Tami Mcknight RN Unavailable Unavailab le Encounter Details Date Type Department Care Team (Late st Contact Info) Description 05/27/2019 Documentation [facility] Social Work [address] [place] [address] Dolores Ovalle LCSW Social History Tobacco Use Types Packs/Day Years Used Date Smoking Tobacco: Never Smokeless Tobacco: Never Alcohol Use Standard Drinks/Week Comments Yes 0 (1 standard drink = 0.6 oz pur e alcohol) 1/mo Comments No Sex and Gender Information Value Date Recorded Sex Assigned at Not on file 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 SW provided transfer hand off to floor SW. documented in this encounter Plan of Treatment Not on file documented as of this encounter Visit Diagnoses Not on filedocumented in this encounter Additional Health Concerns Infection Onset Date Last Indicated Resolved Time COVID19 Comment:IP Review - pt afebrile, without URI signs/symptoms. Aislinn Goldsmith, LOG STACKER OPERATOR 06/09/2019 06/09/2019 06/09/2019 4:20 PM C DT documented as of this encounter Care Teams Wallpaper Hanger Helper Relationship Specialty Start Date End Date Wilber Cleaning Jr., MD [address] [place] [address] PCP - General 07/03/16 07/15/20 Ryann Galdamez PA [address] [place] [address] PCP - General Ciso 07/16/20 04/01/21 Ryann Galdamez PA [address] [place] [address] PCP - General Ciso 04/02/21 01/22/22 Cuba Larsen MD [address] [address] PCP - General Family Medicine 01/23/22 Chris Mendes MD [facility] [place] [address] Referring Physician Cardiology 12/23/21 Klei Orozco, oremanTruck Service Technician Cardiology 12/23/21 04/15/23 Alysa Newton, RN [address] [address] Truck Service Technician Cardiology 12/23/21 Keli Orozco, formulation technician Failure Coordinator 04/02/23 4 Keli Orozco, formulation technician Failure Coordinator Transplant 04/15/23 Tami Mcknight formulation technician Failure Coordinator Cardiology 09/14/23 documented as of this encounter
--- OUTSIDE RECORDS SUMMARY | 2024-03-25 11:05 | XMS_ITS | Encounter Summary ---
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
--- OUTSIDE RECORDS SUMMARY | 2024-03-25 11:05 | XMS_ITS | Encounter Summary ---
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 - 05/27/2019 1:09 PM CDT Hospital Encounter [facility] [address] [place] [address] Berny Carrera MD [address] [facility] [id number] [place] [address] Steve Garcia MD [address] [facility] [id number] [place] [address] Daniela Sharif MD [address] [place] [address] Kaveh Charles MD [address] [place] [address] Closed fracture of distal end of left femur, unspecified fracture morphology, initial encounter ([facility]) (Primary Dx); Other type I or II open fracture of distal end of left femur, initial encounter ([facility]) Discharge Disposition: Discharge to SNF Social History Tobacco Use Types Packs/Day Years Used Date Smoking Tobacco: Never Smokeless Tobacco: Never Alcohol Use Standard Drinks/Week Comments Yes 0 (1 standard drink = 0.6 oz pur e alcohol) 1/mo Comments No Sex and Gender Information Value Date Recorded Sex Assigned at Not on file Legal Sex Female 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 Gender Identity Not on file Sexual [...] 90.7 kg (200 lb) 05/21/2019 7:29 PM AUTO CRANE DRIVER Height 157.5 cm (5' 2 ) 05/21/2019 7:29 PM AUTO CRANE DRIVER Body Mass Index 36.58 05/21/2019 7:29 PM AUTO CRANE DRIVER documented in this encounter Discharge Diagnoses Diagnosis Displaced supracondylar fracture without intracondylar extension of lower end of left femur, initial encounter for open fracture type I or II ([facility]) - DISPLACED SUPRACONDYLAR FRACTURE WITHOUT INTRACONDYLAR EXTENSION OF LOWER END OF LEFT FEMUR, INITIAL Acute posthemorrhagic anemia - ACUTE POSTHEMORRHAGIC ANEMIA Hypothyroidism, unspecified - HYPOTHYROIDISM, UNSPECIFIED Type 2 diabetes mellitus without complications ([facility]) (HCC) - TYPE 2 DIABETES MELLITUS WITHOUT [...] OTHER DRUGS, MEDICAMENTS AND BIOLOGICAL SUBSTANCES STATUS [facility] (current) use of anticoagulants - SENIOR CARE [...] Physician at Discharge: Wilber Cleaning Jr., MD [phone] Admission Date: 05/21/2019 Discharge Date: 05/27/2019 Primary Discharge Diagnosis: Open fracture of left distal femur ([facility]) DETAILS OF HOSPITAL STAY Date of Admission: [...] We recommended close follow-up with her outpatient security agent. The patient participated with physical and occupational therapy and was [facility]. She was maintained on Coumadin for deep venous thrombosis prophylaxis. Pain was adequately maintained on oral opiates. The patient was discharged in stable condition to rehabilitation facility on 05/27/2019. Discharge Medications: Prema Pearce Home Medication Instructions ROMMEL:[id number] Printed on:05/27/19 1400 Medication Information ALPRAZolam (XANAX) [...] Kaveh Charles on 06/16/2019 at 9:45am at [facility] 12A: [facility] ([facility]), [address] [place] [address], 12[address], [place] [address]. Condition on Discharge: Stable documented in this [...] Disposition Code Departure Means Destination Discharge to [facility] ([place], [place]) documented in this encounter Progress Notes * Tami Britton PARTS DATA WRITER - 05/27/2019 2:19 PM CDT 05/27/19 1413 Discharge Summary Chart reviewed For Medical Necessity Does patient have a planned readmission to hospital planned? No Discharge Disposition SNF, Commercial Insurance, Short term Skilled Specify Facility [facility] Facility Contact Number [phone] Discharge Records Chart Copied;Transfer Form Completed Equipment/Provider Needs No Home Needs Identified Discharge Additional Assistance Does the patient need discharge transport arranged? Yes Has discharge transport been arranged? Yes Details of Transportation Kimberli [phone]. Trip number: [id number] What day is the transport expected? 05/27/19 [...] chart copied, insurance auth obtained from Gela [phone], Auth number [id number]. Facility willing to take patient, Transfer paperwork completed. Patient agrees with placement, DPOA agrees with placement, Designated decision- maker agrees with placement. Date and time of transportation 05/27/2019 at 1430 Report: [phone] Patient/family informed that while medical team will [...] Ortho Recon Daily Progress Subjective Prema Pearce [id number] 79 y/o F POD 2 s/p L distal femoral replacement. S: Doing well, transferred up to 174 overnight. Pain controlled on current regimen. Notes some burning anterior but otherwise OK. Stood/transferred yesterday, will continue to work with PT. Asymptomatic during period of Afib w/ RVR. Pt has not seen outpatient security agent for a couple months, was previously on [...] the appropriate orthopaedic surgery team, please use [email or web address] to page resident directly. ?? If you have questions overnight or can't reach the appropriate resident, please call the Orthopaedic Surgery Consult Pager [phone] to have your questions answered or be [...] of a fib overnight. Kaveh Charles M.D. Raised Printer, Orthopaedic Surgery * Ryann Ribeiro MD - [...] Ribeiro MD Department of Orthopaedic Surgery, PGY-1 [facility] [phone] * Dolores Florez, [facility] - 05/26/2019 2:28 PM CDT IP Social Work Assessment Social History: Prior to admission the patient was living at home independently. Pt resides with her spouse Ravi Pearce [phone]. Pt reports that she does not use DME but believes she owns walker/cane. Pt's best friends Pat and Luis M were at bedside during assessment. 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. Additional Information: Social work met with the patient/family to obtain assessment information and discuss d/c planning needs. Social work informed the patient/family that d/c recommendations indicate transfer to SNF rehab. Social work provided information on the rehabilitation process and provided information on SNF rehab. Social work provided information on [facility] and emphasized the importance of continuity [...] Allscripts referral will be sent to [facility] per social work protocol, additional referrals [...] Self Support System: (P) Spouse/Significant Other(Ravi Pearce [phone]) Durable Medical Equipment: (P) None Living Arrangements: (P) Spouse/significant other Type of Residence: (P) Private residence Financial Resource Income: (P) Senior Living/Pension Potential Discharge Needs Anticipated discharge level of care: (P) [facility] facility Pt/Family agrees with Anticipated Level of Care: (P) Yes Patient expects to be discharged to:: (P) [facility] Facility Dialysis: (P) No Behavioral Health Services: (P) No (05/26/19 0129) Dolores Florez LMSW [facility] Social Work [phone] * Suzie Wu MD - 05/26/2019 5:31 AM CDT Ortho Recon Daily Progress Subjective Prema Pearce [id number] 79 y/o F POD 1 s/p L [...] the appropriate orthopaedic surgery team, please use [email or web address] to page resident directly. ?? If you have questions overnight or can't reach the appropriate resident, please call the Orthopaedic Surgery Consult Pager [phone] to have your questions answered or be directed to the correct Orthopaedic Surgery resident. * Suzie Wu MD - 05/25/2019 5:59 AM CDT [place]ula Recon Daily Progress Subjective Prema [id number] 79 y/o F POD 3 s/p L [...] the appropriate orthopaedic surgery team, please use [email or web address] to page resident directly. ?? If you have questions overnight or can't reach the appropriate resident, please call the Orthopaedic Surgery Consult Pager [phone] to have your questions answered or be [...] BPs are now in 120s/60s. Spoke with System Planning Engineer, will give pt metoprolol 12.5 mg as metoprolol should have less of an effect on her BP than carvedilol. Will continue tomonitor on telemetry. If HR does not improve within initial dose of metoprolol, will give an additional 12.5 mg. Ryann Ribeiro MD Department of Orthopaedic Surgery, PGY-1 [facility] [place]/[facility] [phone] * Suzie Wu MD - 05/24/2019 5:44 AM CDT Ortho Recon Daily Progress Subjective Prema Pearce [id number] 79 y/o F POD 2 s/p L [...] the appropriate orthopaedic surgery team, please use [email or web address] to page resident directly. ?? If you have questions overnight or can't reach the appropriate resident, please call the Orthopaedic Surgery Consult Pager [phone] to have your questions answered or be directed to the correct Orthopaedic Surgery resident. * Neetu Mejia RN - 05/23/2019 9:17 AM CDT 05/23/19911 Information Information Obtained From Patient Referral Data Referral Source Self referral Referral Reason Discharge Planning Prior to Admission Primary Caregiver Self Support System Spouse/Significant Other Support system contact info (name, phone, availablity) Ravi Pearce (spouse) [phone] Home Care Services No Durable Medical Equipment None Living Arrangements Spouse/significant other Type of Residence Private residence Steps in home? Yes, Outside of home Number of steps outside: 2 steps Financial Resource Income Senior Living/Pension Payor Source Commercial Potential Discharge Needs Home [...] and referrals as needed. Masha Mejia RN [phone] Through the course of our work I [...] Patient choice (Home Health/Hospice) list given to patient/distribution sales representative? No (will be provided when dispo is determined) [facility] Facility list given to patient/distribution sales representative? No (will be provided when dispo is determined) Fiduciary Responsibility Patient/Designated decision maker was informed of [facility] fiduciary relationship as necessary * Suzie Wu MD - 05/23/2019 8:29 AM CDT Ortho Recon Daily Progress Subjective Prema Pearce [id number] 79 y/o F POD 1 s/p L [...] the appropriate orthopaedic surgery team, please use [email or web address] to page resident directly. ?? If you have questions overnight or can't reach the appropriate resident, please call the Orthopaedic Surgery Consult Pager [phone] to have your questions answered or be [...] to address her fracture. Kaveh Charles M.D. Raised Printer, Orthopaedic Surgery * Cuba Castro MD - [...] and SSI 05/22/19 -- * Ayleen Goldman [facility] - 05/21/2019 11:34 PM CST [facility] P&T has approved rounding blood factors to the nearest vial size if the new dose is within +/-10% of the original dose. Product has been rounded per protocol from 2267.5 units to 2242 units. CRANE DRIVER documented in this encounter H&P Notes * [...] Thang Doherty MD - 05/21/2019 8:06 PM AUTO CRANE DRIVER Orthopaedic Surgery Trauma Consult May 21, 2019 8:06 PM Reason for Consult: L Type 1 Open distal femur fracture Requesting Provider: No ref. provider found Consulting Provider: Resident - Chas/Attending - Dr. Elio Villalobos Patient (home) Insurance: Payor: [employer] / Plan: [employer] / Product Type: *No Product type* [...] only and have not been reviewed by [facility] Radiology. There will be no report generated by a [facility] Radiologist. Clinical Images: None Procedure: No procedure [...] MD, MPH Department of Orthopaedic Surgery, PGY-1 [facility] in [facility] ?? During normal business hours - If you know the resident's name on the appropriate orthopaedic surgery team, please use [email or web address] to page resident directly. ?? If you have questions overnight or can't reach the appropriate resident, please call the Orthopaedic Surgery Consult Pager [phone] to have your questions answered or be directed to the correct Orthopaedic Surgery resident. Cosigned by Homer Villalobos MD at 05/22/2019 12:03 AM AUTO CRANE DRIVER CRANE DRIVER CRANE DRIVER documented in this encounter Consult Notes * Thang Doherty MD - 05/21/2019 8:06 PM CSTAssociated Order(s): IP CONSULT TO ORTHOPEDIC SURGERY Orthopaedic Surgery Trauma Consult May 21, 2019 8:06 PM Reason for Consult: L Type 1 Open distal femur fracture Requesting Provider: No ref. provider found Consulting Provider: Resident - Chas/Attending - Dr. Elio Villalobos Patient (home) Insurance: Payor: [employer] / Plan: [employer] / Product Type: *No Product type* /Note: [...] only and have not been reviewed by [facility] Radiology. There will be no report generated by a [facility] Radiologist. Clinical Images: None Procedure: No procedure [...] MD, MPH Department of Orthopaedic Surgery, PGY-1 [facility] in [facility] ?? During normal business hours - If you know the resident's name on the appropriate orthopaedic surgery team, please use [email or web address] to page resident directly. ?? If you have questions overnight or can't reach the appropriate resident, please call the Orthopaedic Surgery Consult Pager [phone] to have your questions answered or be directed to the correct Orthopaedic Surgery resident. Cosigned by Homer Villalobos MD at 05/22/2019 12:03 AM AUTO CRANE DRIVER CRANE DRIVER CRANE DRIVER * Singh Dukes Jr., MD - 05/21/2019 7:47 PM CSTAssociated Order(s): IP CONSULT TO TRAUMA SURGERY [facility] Trauma Surgery History and Physical Date of [...] fell down 2 steps Object [place]ed upon: [email or web address] Loss of consciousness: No Area affected: Head, [...] only and have not been reviewed by [facility] Radiology. There will be no report generated by a [facility] Radiologist. Cervical Spine: Cervical collar, C spine precautions, imaging pending. Assessment/Plan: see above Singh Dukes Jr. Trauma Surgery May 21, 2019 7:47 PM Discussed with attending: Ian Camarillo at 1999 (time). Cosigned by Ian Camarillo MD at 06/01/2019 12:56 PM CDT CRANE DRIVER CRANE DRIVER Associated attestation - Ian Camarillo MD - [...] leg. Skin check performed with 2nd RN, Dlemy Gagnon. See skinassessment for further details. Pt on 2 L NC. RN agrees with previous RNs assessment. documented in this encounter ED Notes * Berny Carrera MD - 05/21/2019 7:40 PM CST HPI Chief Complaint Patient presents with ??? Fall 79 yo F w/ h/o afib on warfarin, HTN, HLD, DM here as tx from [facility] with L distal femurfx. Patient walking in garage today, thinks did not pick left leg up enough, tripped, fell forward onto L knee, then onto side hitting head. Unable to get up, down for ~20 minutes, EMS called. Went to [facility] where had CT head and [...] HTN, HLD, DM here as tx from [facility] with L distal femur fx [...] femur, unspecified fracture morphology, initial encounter ([facility]) Other type I or II open fracture of distal end of left femur, initial encounter ([facility]) Alessandro Malone MD Resident 05/23/19701 Berny Carrera [...] pulses normal Sensation. Able to wiggle toes. CRANE DRIVER * Marielena Eduardo RN - 05/21/2019 7:15 PM CST Bed: [facility] Expected date: 05/21/19 Expected time: 4:16 PM Means of arrival: Ambulance Comments: Marielena Eduardo RN 05/21/191914 CRANE DRIVER documented in this encounter Miscellaneous Notes * Plan of Care - Tami Britton LCSW - 05/27/2019 10:01 AM CDT SW met with Pt and spouse to discuss d/c options. They were in agreement with referrals to [facility], [facility], and [facility]. [facility] referrals sent. SW to follow. [...] baseline -HB -- -- -- Level of [place] Independent with ADLs;Independent functional transfers;Independent with ambulation;Independent [...] -HB -- -- -- Overall Cognitive Status [facility] - -- -- -- Arousal/Alertness [...] intact - -- -- -- Fine Motor [facility] - -- -- -- Serial Opposition [facility] -- -- -- Coordination Functional -HB -- -- -- Gross Grasp Functional -HB -- -- -- RUE Reach [facility] - -- -- -- LUE Reach [facility] - -- -- -- RUE Grasp [...] to surgery -CK -- -- Level of [place] Independent with ADLs;Independent with ambulation;Independent functional transfers -CK -- -- Lives With Spouse -CK -- -- Receives Help From Family other family members also able to assist progressive care manager -CK -- -- Fall within the last [...] mL in sterile water (premix) 2,000 mg [[id number]] Ordering Provider: Alessandro Malone MD Status: Completed [...] Howard RN carvediloL (COREG) tablet 25 mg [[id number]] Ordering Provider: Kaveh Charles MD Status: Dispensed Ordered On: 05/21/192220 Start: 05/21/192221 Dose (Remaining/Total): 25 mg (--/--) Route: oral Frequency: 2 times daily Rate/Duration: -- / -- Timestamps Action Dose Route Other Information 05/27/19 0814 Given 25 mg oral Performed by: Kendy Nicole RN phytonadione (VITAMIN K1) 10 mg in dextrose 5% 50 mL IVPB [[id number]] Ordering Provider: Singh Dukes Jr., MD Status: [...] complex four factor (KCENTRA) injection 2,242 Units [[id number]] Ordering Provider: Singh Dukes Jr., MD Status: [...] Lamar RN amLODIPine (NORVASC) tablet 5 mg [[id number]] Ordering Provider: Kaveh Charles MD Status: Dispensed Ordered On: 05/22/1910 Start: 05/22/19899 Dose (Remaining/Total): 5 mg (--/--) Route: oral Frequency: Daily Rate/Duration: -- / -- Timestamps Action Dose Route Other Information 05/27/19812 Given 5 mg oral Performed by: Kendy Nicole RN DULoxetine DR (CYMBALTA) extended release capsule 60 mg [[id number]] Ordering Provider: Kaveh Charles MD Status: Dispensed [...] Nicole RN levothyroxine (SYNTHROID) tablet 25 mcg [[id number]] Ordering Provider: Kaveh Charles MD Status: Dispensed [...] Nicole RN losartan (COZAAR) tablet 100 mg [[id number]] Ordering Provider: Kaveh Charles MD Status: Dispensed Ordered On: 05/22/1910 Start: 05/22/19899 Dose (Remaining/Total): 100 mg (--/--) Route: oral Frequency: Daily Rate/Duration: -- / -- Timestamps Action Dose Route Other Information 05/27/19813 Given 100 mg oral Performed by: Kendy Nicole RN lovastatin (MEVACOR) tablet 10 mg [[id number]] Ordering Provider: Kaveh Charles MD Status: Dispensed Ordered On: 05/22/1910 Start: 05/22/192099 Dose (Remaining/Total): 10 mg (--/--) Route: oral Frequency: Nightly Rate/Duration: -- / -- Admin Instructions: Take with food Timestamps Action Dose Route Other Information 05/26/192132 Given 10 mg oral Performed by: Julissa Eaton RN acetaminophen (TYLENOL) tablet 1,000 mg [[id number]] Ordering Provider: Kaveh Charles MD Status: Dispensed Ordered On: 05/22/1910 Start: 05/22/1944 Dose (Remaining/Total): 1,000 mg (--/--) Route: oral Frequency: Every 6 hours scheduled Rate/Duration: -- / -- Timestamps Action Dose Route Other Information 05/27/19 0618 Given 1,000 mg oral Performed by: Denisa Galdamez RN dextrose (GLUTOSE) 40 % gel 15 g [[id number]] Ordering Provider: Kaveh Charles MD Status: Verified [...] Call MD for each episode of hypoglycemia. DIABETES EDUCATION COORDINATOR STATES GLUTOSE-15 CONTAINS GLUCOSE 40% W/W (50% W/V) (No admins recorded for this medication) dextrose (D10W) 10% bolus 250 mL [[id number]] Ordering Provider: Kaveh Charles MD Status: Verified Ordered On: 05/22/1910 Start: 05/22/1910 Dose (Remaining/Total): 250 mL (--/--) Route: intravenous Frequency: Every 15 min PRN Rate/Duration: 1,000 mL/hr / 15 Minutes Admin Instructions: After treatment for hypoglycemia, recheck BG followed by treatment every 15 minutes until the BG is greater than 100 mg/dL. Then check BG 1 hour post treatment. If BG is less [id number] mg/dL, repeat Q15 minute BG checks and treatment. Call MD for each episode of hypoglycemia. (No admins recorded for this medication) glucagon injection 1 mg [[id number]] Ordering Provider: Kaveh Charles MD Status: Verified [...] medication) insulin lispro (HumaLOG) injection 1-2 Units [[id number]] Ordering Provider: Kaveh Charles MD Status: Verified [...] Eaton RN ramelteon (ROZEREM) tablet 8 mg [[id number]] Ordering Provider: Kaveh Charles MD Status: Dispensed Ordered On: 05/24/192355 Start: 05/24/192355 Dose (Remaining/Total): 8 mg (--/--) Route: oral Frequency: Nightly PRN Rate/Duration: -- / -- Timestamps Action Dose Route Other Information 05/25/19 0001 Given 8 mg oral Performed by: Mary Lamar RN metoprolol (LOPRESSOR) tablet 12.5 mg [[id number]] Ordering Provider: Ryann Ribeiro MD Status: Completed (Past End Date/Time) Ordered On: 05/25/19 0052 Starts/Ends: 05/25/19 0130 - 05/25/19 0100 Dose (Remaining/Total): 12.5 mg (0/1) Route: oral Frequency: Once Rate/Duration: -- / -- Timestamps Action Dose Route Other Information 05/25/19 010 Given 12.5 mg oral Performed by: Mary Lamar RN metoprolol (LOPRESSOR) tablet 12.5 mg [[id number]] Ordering Provider: Ryann Ribeiro MD Status: Completed (Past End Date/Time) Ordered On: 05/25/19 0326 Starts/Ends: 05/25/19 0400 - 05/25/19 0335 Dose (Remaining/Total): 12.5 mg (0/1) Route: oral Frequency: Once Rate/Duration: -- / -- Timestamps Action Dose Route Other Information 05/25/19 0335 Given 12.5 mg oral Performed by: Mary Lamar RN Lactated Ringer's (LR) bolus 1,000 mL [[id number]] Ordering Provider: Kaveh Charles MD Status: Completed [...] mL in sterile water (premix) 2,000 mg [[id number]] Ordering Provider: Kaveh Charles MD Status: Completed [...] in sodium chloride 0.9% (premix) 1,500 mg [[id number]] Ordering Provider: Kaveh Charles MD Status: Completed [...] Moreno RN ketorolac (TORADOL) injection 15 mg [[id number]] Ordering Provider: Kaveh Charles MD Status: Completed [...] bacteriostatic 0.9% sodium chloride 30 mL solution [[id number]] Ordering Provider: Kaveh Charles MD Status: Completed [...] femur sodium chloride 0.9% flush 0.5-20 mL [[id number]] Ordering Provider: Kaveh Charles MD Status: Verified Ordered On: 05/25/19 1723 Start: 05/25/19 2200 Dose (Remaining/Total): 0.5-20 mL (--/--) Route: intra-catheter Frequency: Every 8 hours scheduled Rate/Duration: -- / -- Admin Instructions: Flush volume based on line type and size. Timestamps Action Dose Route Other Information 05/27/19 0529 Given 10 mL intra-catheter Performed by: Denisa Galdamez RN sodium chloride 0.9% flush 0.5-20 mL [[id number]] Ordering Provider: Kaveh Charles MD Status: Verified Ordered On: 05/25/191722 Start: 05/25/191722 Dose (Remaining/Total): 0.5-20 mL (--/--) Route: intra-catheter Frequency: As needed Rate/Duration: -- / -- Admin Instructions: Flush volume based on line type and size. Flush before and after each use. (No admins recorded for this medication) Lactated Ringer's (LR) bolus 1,000 mL [[id number]] Ordering Provider: Kaveh Charles MD Status: Completed (Past End Date/Time) Ordered On: 05/25/19 1418 Starts/Ends: 05/25/191499 - 05/25/19 1500 Dose (Remaining/Total): 1,000 mL (0/1) Route: intravenous Frequency: Once Rate/Duration: 1,000 mL/hr / 1 Hours (No admins recorded for this medication) ondansetron ODT (ZOFRAN-ODT) disintegrating tablet 4 mg [[id number]] Ordering Provider: Kaveh Charles MD Status: Verified Ordered On: 05/25/191722 Start: 05/25/191722 Dose (Remaining/Total): 4 mg (--/--) Route: oral Frequency: Every 6 hours PRN Rate/Duration: -- / -- (No admins recorded for this medication) ondansetron (ZOFRAN) injection 4 mg [[id number]] Ordering Provider: Kaveh Charles MD Status: Verified Ordered On: 05/25/191722 Start: 05/25/191722 Dose (Remaining/Total): 4 mg (--/--) Route: intravenous Frequency: Every 6 hours PRN Rate/Duration: -- / 2 Minutes (No admins recorded for this medication) senna-docusate (PERICOLACE) 8.6-50 mg per tablet 2 tablet [[id number]] Ordering Provider: Kaveh Charles MD Status: Dispensed Ordered On: 05/25/191722 Start: 05/25/19 2100 Dose (Remaining/Total): 2 tablet (--/--) Route: oral Frequency: 2 times daily Rate/Duration: -- / -- Admin Instructions: Hold for diarrhea. Timestamps Action Dose Route Other Information 05/27/19812 Given 2 tablet oral Performed by: Kendy Nicole RN polyethylene glycol (MIRALAX) packet 17 g [[id number]] Ordering Provider: Kaveh Charles MD Status: Verified Ordered On: 05/25/191722 Start: 05/25/191722 Dose (Remaining/Total): 17 g (--/--) Route: oral Frequency: Daily PRN Rate/Duration: -- / -- (No admins recorded for this medication) famotidine (PEPCID) tablet 20 mg [[id number]] Ordering Provider: Kaveh Charles MD Status: Dispensed Ordered On: 05/25/191722 Start: 05/25/192099 Dose (Remaining/Total): 20 mg (--/--) Route: oral Frequency: 2 times daily Rate/Duration: -- / -- Timestamps Action Dose Route Other Information 05/27/19812 Given 20 mg oral Performed by: Kendy Nicole RN camphor-menthoL (SARNA) 0.5-0.5 % lotion [[id number]] Ordering Provider: Kaveh Charles MD Status: Dispensed Ordered On: 05/25/191722 Start: 05/25/191722 Dose (Remaining/Total): -- (--/--) Route: topical Frequency: Every 2 hours PRN Rate/Duration: -- / -- Question Answer Comment Apply to affected area:: other surgical wound site (No admins recorded for this medication) warfarin (COUMADIN) tablet 2 mg [[id number]] Ordering Provider: Kaveh Charles MD Status: Dispensed [...] mL in sterile water (premix) 2,000 mg [[id number]] Ordering Provider: Kaveh Charles MD Status: Completed [...] in sodium chloride 0.9% (premix) 1,500 mg [[id number]] Ordering Provider: Kaveh Charles MD Status: Completed [...] Hall RN ketorolac (TORADOL) injection 15 mg [[id number]] Ordering Provider: Kaveh Charles MD Status: Dispensed [...] Hall RN HYDROmorphone (DILAUDID) injection 0.2 mg [[id number]] Ordering Provider: Kaveh Charles MD Status: Dispensed [...] RN insulin lispro (HumaLOG) injection 1-3 Units [[id number]] Ordering Provider: Yoly Medellin MD Status: Completed [...] Negron RN oxyCODONE (ROXICODONE) tablet 5 mg [[id number]] Ordering Provider: Suzie Wu MD Status: Dispensed Ordered On: 05/26/19 0530 Start: 05/26/19 0545 Dose (Remaining/Total): 5 mg (--/--) Route: oral Frequency: Every 4 hours Rate/Duration: -- / -- Timestamps Action Dose Route Other Information 05/27/19 0618 Given 5 mg oral Performed by: Denisa Galdamez RN metoprolol (LOPRESSOR) injection 5 mg [[id number]] Ordering Provider: Ryann Ribeiro MD Status: Completed [...] Problem: Open fracture of left distal femur ([facility]) [S72.402B] More... Elopement Risk Date/Time Elopement Risk User 05/22/19 0651 No risk [facility] 05/22/19 0500 No risk [facility] Intake/Output 05/24/19 0700 - 05/25/19 0659 05/25/19 0700 - 05/26/19 0659 05/26/19 0700 - 05/27/19 0659 Total Total 7460-6690 0949-7125 5041-4865 Total Intake (ml) 20 3050 -- 500 -- 500 Output (ml) 700 930 400 857 278 0405 Net (ml) -680 2120 -400 175 -475 [...] record. Thank you, Mary Umana RN, MSN, [facility] [phone] * Plan of Care - Moriah Hall [...] was found to be excellent. Leg length jewish was confirmed. The rotation was marked. The [...] available during skin closure. Kaveh Charles M.D. Raised Printer, Orthopaedic Surgery * Plan of Care - [...] to follow for needs A Roberto RM [phone] For evening case management needs please contact the healthcare advisory services manager at [phone]. For weekend and holiday needs please call [phone]. * Plan of Care - Holly Leonard [...] AM CDT No yumiko hugger used. Warm Wallback was used * Op Note - Cuba Castro MD - 05/22/2019 8:13 AM CDT Date of Surgery: .05/22/19 Pre-operative Diagnosis: 1. Comminuted open left distal femur fracture, type 1 Post-operative diagnosis: 1. Same as above Operative Procedure: 1. Irrigation and excisional debridement of nonviable subcutaneous tissue and bone from left distal femur fracture Attending Surgeon: Cuba Castro MD, M.Sc. Screen Vent Binder: 1. Lina Elizabeth MD Anesthesia: General Blood [...] resulting from a laceration of a small wood fence erector secondary to her fracture. This was cauterized. [...] Resident - Assisting Anesthesiologist: Daryn Jaramillo MD UNARMED SECURITY GUARD: Mehul Dias CRNA Student Nurse Airport Sales Agent: Daya Baldwin RN Refractory Repairer: Aurelia Pederson RN Scrub: ST Jeromy DATE OF SURGERY : 05/22/2019 Preoperative Diagnosis: Pre-op Diagnosis * Other type I or II open fracture of distal end of left femur, initial encounter ([facility]) [Q70.969A] Postoperative Diagnosis: Post-op Diagnosis * Other type I or II open fracture of distal end of left femur, initial encounter ([facility]) [A72.262D] Procedure(s): Procedure(s) (LRB): INCISION AND DRAINAGE - [...] Berny Carrera MD - 05/21/2019 7:40 PM AUTO CRANE DRIVER Associated Order(s): ECG 12 lead Procedure ECG [...] in the ED Berny Carrera MD 05/21/191939 CRANE DRIVER * ED Pre-Arrival Note - Lina Wyatt RN - 05/21/2019 4:17 PM AUTO CRANE DRIVER Pre-Arrival Note Pt accepted as Level [address] Elena, report called by RACHID Flores. Pt had a ground level fall today. - LOC. Head CT negative. Pt has a comminuted L femur fracture into the knee joint with dislocationof the knee. PMS intact. VSS at time of report. Lina Wyatt RN CRANE DRIVER documented in this encounter Plan of [...] of shaft of left femur, initial encounter ([facility]) Special Needs [place] POCT GLUCOSE DEVICE Routine [...] distal end of left femur, initial encounter ([facility]) POCT GLUCOSE DEVICE Routine 05/22/2019 6 :39 AM CDT POCT GLUCOSE DEVICE Routine 05/22/2019 4 :59 AM CDT PROTIME-INR STAT 05/22/2019 4:57 AM CDT POCT GLUCOSE DEVICE Routine 05/22/2019 1 2:39 AM AUTO CRANE DRIVER B CHECK SAMPLE STAT 05/21/2019 11:48 PM AUTO CRANE DRIVER POCT GLUCOSE DEVICE Routine 05/21/2019 1 1:[address] CT KNEE LEFT WO CONTRAST ED 05/21/2019 10:21 PM AUTO CRANE DRIVER NEURO CT MR OUTSIDE CONSULT ED 05/21/2019 8:[address] CERVICAL SPINE WO CONTRAST ED 05/21/2019 8:29 PM AUTO CRANE DRIVER XR KNEE LEFT 1 OR 2 VIEWS ED 05/21/2019 8:26 PM AUTO CRANE DRIVER XR PELVIS 1 OR 2 VIEWS ED 05/21/2019 8:26 PM AUTO CRANE DRIVER XR FEMUR LEFT 2 OR MORE VIEWS ED 05/21/2019 8:25 PM AUTO CRANE DRIVER XR CHEST 1 VIEW ED 05/21/2019 8:24 PM AUTO CRANE DRIVER DIFFERENTIAL AUTO STAT 05/21/2019 7:4 3 PM AUTO CRANE DRIVER CBC WITH AUTO DIFFERENTIAL STAT 05/21/2019 7:43 PM AUTO CRANE DRIVER APTT STAT 05/21/2019 7:43 PM AUTO CRANE DRIVER PROTIME-INR STAT 05/21/2019 7:43 PM AUTO CRANE DRIVER TYPE AND SCREEN STAT 05/21/2019 7:43 PM AUTO CRANE DRIVER COMPREHENSIVE METABOLIC PANEL STAT 05/21/2019 7:43 PM AUTO CRANE DRIVER ECG 12-LEAD STAT 05/21/2019 7:40 PM AUTO CRANE DRIVER XR TRANSFER OF OUTSIDE FILMS ED 05/21/2019 7:33 PM AUTO CRANE DRIVER POCT GLUCOSE DEVICE Routine 05/21/2019 7 :27 PM AUTO CRANE DRIVER documented in this encounter Results * (ABNORMAL) POCT glucose (05/27/2019 11:49 AM CDT) Glucose, POC 213(H) 70 - 199 mg/dL [facility] Blood specimen (specimen) 05/27/2019 11:49 AM CDT 05/27/2019 11:49 AM CDT Kaveh Charles MD LAB POCT ORDERABLES - [place] CE Final Result Performing Organization Address [facility] de Phone Number [facility] Department [place] [address] * POCT glucose (05/27/2019 7:30 AM CDT) Glucose, POC 176 70 - 199 mg/dL [facility] Blood specimen (specimen) 05/27/2019 7:30 AM CDT 05/27/2019 7:30 AM CDT us Kaveh Charles MD LAB POCT ORDERABLES - [place] CE Final Result Performing Organization Address [facility] Co de Phone Number [facility] Department [place] [address] * POCT glucose (05/27/2019 4:35 AM CDT) Glucose, POC 174 70 - 199 mg/dL [facility] Blood specimen (specimen) 05/27/2019 4:35 AM CDT 05/27/2019 4:35 AM CDT Kaveh Charles MD LAB POCT ORDERABLES - [place] CE Final Result Performing Organization Address [facility] Co de Phone Number [facility] [place] [address] * POCT glucose (05/27/2019 1:07 AM CDT) Glucose, POC 170 70 - 199 mg/dL [facility] Blood specimen (specimen) 05/27/2019 1:07 AM CDT 05/27/2019 1:07 AM CDT Steve Garcia MD LAB POCT ORDERABLES - DEV ICE Final Result Performing Organization Address [facility] Co de Phone Number [facility] [place] [address] * (ABNORMAL) POCT glucose (05/26/2019 9:55 PM CDT) [facility] Glucose, POC 235(H) 70 - 199 mg/dL [facility] Blood specimen (specimen) 05/26/2019 9:55 PM CDT 05/26/2019 9:55 PM CDT Steve Garcia MD LAB POCT ORDERABLES - DEV ICE Final Result Performing Organization Address [facility] Co de Phone Number [facility] [place] [address] * Differential, auto (05/26/2019 9:52 PM CDT) Neutrophil abs 5.2 1.7 - 6.5 K/cumm [facility] Imm gran abs 0.0 0.0 - 0.1 K/cumm [facility] Lymphocyte abs 1.2 0.8 - 3.3 K/cumm [facility] Monocyte abs 0.6 0.2 - 0.8 K/cumm [facility] Eosinophil abs 0.1 0.0 - 0.5 K/cumm [facility] Basophil abs 0.0 0.0 - 0.1 K/cumm [facility] Neutrophil pct 72.9 % [facility] Comment: Interpretive Data Percent cell count reference ranges are not reported, since discordance with absolute values may lead to misinterpretation of CBC data. Current Interpretive Data was last revised on 2017. Imm gran pct 0.7 % [facility] Comment: Interpretive Data Percent cell count reference ranges are not reported, since discordance with absolute values may lead to misinterpretation of CBC data. Current Interpretive Data was last revised on 2017. Lymphocyte pct 17.4 % [facility] Comment: Interpretive Data Percent cell count reference ranges are not reported, since discordance with absolute values may lead to misinterpretation of CBC data. Current Interpretive Data was last revised on 2017. Monocyte pct 7.9 % [facility] Comment: Interpretive Data Percent cell count reference ranges are not reported, since discordance with absolute values may lead to misinterpretation of CBC data. Current Interpretive Data was last revised on 2017. Eosinophil pct 1.0 % [facility] Comment: Interpretive Data Percent cell count reference ranges are not reported, since discordance with absolute values may lead to misinterpretation of CBC data. Current Interpretive Data was last revised on 2017. Basophil pct 0.1 % [facility] Comment: Interpretive Data Percent cell count reference ranges are not reported, since discordance with absolute values may lead to misinterpretation of CBC data. Current Interpretive Data was last revised on 2017. Blood specimen (specimen) 05/26/2019 9:52 PM CDT 05/26/2019 10:09 PM CDT us Kaveh Charles MD LAB BLOOD ORDERABLES Final Result [facility] Department of Laboratories [place], [place] [id number] * (ABNORMAL) Basic metabolic panel (05/26/2019 9:52 PM CDT) Sodium 134(L) 135 - 145 mmol/L [facility] Potassium, pl 4.2 3.3 - 4.9 mmol/L [facility] Chloride 104 97 - 110 mmol/L [facility] CO2 25 22 - 32 mmol/L [facility] Anion gap 5 2 - 15 mmol/L [facility] BUN 17 8 - 25 mg/dL [facility] Creatinine 0.45(L) 0.60 - 1.10 mg/dL [facility] Glucose 222(H) 70 - 199 mg/dL [facility] Comment: Interpretive Data Fasting glucose >/= [...] 2017. Calcium 8.3(L) 8.5 - 10.3 mg/dL [facility] Blood specimen (specimen) 05/26/2019 9:52 PM CDT 05/26/2019 10:09 PM CDT Kaveh Charles MD LAB BLOOD ORDERABLES Final Result [facility] Department [place] [address] * (ABNORMAL) CBC with auto differential (05/26/2019 9:52 PM CDT) WBC 7.1 3.8 - 9.9 K/cumm [facility] Hgb 8.9(L) 11.9 - 15.5 g/dL [facility] Hct 27.5(L) 35.6 - 45.5 % [facility] Plt 210 150 - 400 K/cumm [facility] MPV 10.0 9.1 - 12.3 fL [facility] RBC 2.80(L) 3.90 - 5.20 M/cumm [facility] MCV 98.2(H) 81.3 - 96.4 fL [facility] MCH 31.8 27.1 - 33.3 pg [facility] MCHC 32.4 32.3 - 35.7 g/dL [facility] RDW CV 15.2(H) 11.1 - 14.9 % [facility] RDW SD 54.1(H) 35.7 - 48.1 fL [facility] NRBC abs 0.00 0.00 - 0.01 K/cumm [facility] Blood specimen (specimen) 05/26/2019 9:52 PM CDT 05/26/2019 10:09 PM CDT Kaveh Charles MD LAB BLOOD ORDERABLES Final Result Performing Organization Address [facility] de Phone Number [facility] Department [place] [address] * (ABNORMAL) Protime-INR (05/26/2019 9:52 PM CDT) Pathologist [facility] PT 13.7(H) 8.6 - 13.0 sec [facility] INR 1.3(H) 0.8 - 1.2 [facility] Comment: Interpretive data Oral anticoagulant therapeutic [...] BLOOD ORDERABLES Final Result Performing Organization Address [facility] de Phone Number [facility] Department [place] [address] * POCT glucose (05/26/2019 3:46 PM CDT) Glucose, POC 188 70 - 199 mg/dL [facility] Blood specimen (specimen) 05/26/2019 3:46 PM CDT 05/26/2019 3:46 PM CDT Kaveh Charles MD LAB POCT ORDERABLES - [place] CE Final Result Performing Organization Address [facility] Co de Phone Number [facility] [place] [employer] [place] [address] * (ABNORMAL) POCT glucose (05/26/2019 11:47 AM CDT) Glucose, POC 202(H) 70 - 199 mg/dL [facility] Blood specimen (specimen) 05/26/2019 11:47 AM CDT 05/26/2019 11:47 AM CDT Kaveh Charles MD LAB POCT ORDERABLES - [place] CE Final Result Performing Organization Address [facility] Co de Phone Number [facility] [place] [place] [address] * (ABNORMAL) POCT glucose (05/26/2019 9:25 AM CDT) Glucose, POC 216(H) 70 - 199 mg/dL [facility] Blood specimen (specimen) 05/26/2019 9:25 AM CDT 05/26/2019 9:25 AM CDT us Kaveh Charles MD LAB POCT ORDERABLES - [place] CE Final Result Performing Organization Address [facility] [place] [address] * POCT glucose (05/26/2019 6:08 AM CDT) Glucose, POC 160 70 - 199 mg/dL [facility] Blood specimen (specimen) 05/26/2019 6:08 AM CDT 05/26/2019 6:08 AM CDT Kaveh Charles MD LAB POCT ORDERABLES - [place] CE Final Result Performing Organization Address [facility] Co de Phone Number [facility] Department [place] [address] * POCT glucose (05/25/2019 11:04 PM CDT) Pathologist [facility] Glucose, POC 174 70 - 199 mg/dL [facility] Blood specimen (specimen) 05/25/2019 11:04 PM CDT 05/25/2019 11:04 PM CDT Kaveh Charles MD LAB POCT ORDERABLES - [place] CE Final Result Performing Organization Address [facility] de Phone Number [facility] Department [place] [address] * Differential, auto (05/25/2019 10:42 PM CDT) Pathologist [facility] Neutrophil abs 5.4 1.7 - 6.5 K/cumm [facility] Imm gran abs 0.0 0.0 - 0.1 K/cumm [facility] Lymphocyte abs 1.2 0.8 - 3.3 K/cumm [facility] Monocyte abs 0.7 0.2 - 0.8 K/cumm [facility] Eosinophil abs 0.0 0.0 - 0.5 K/cumm [facility] Basophil abs 0.0 0.0 - 0.1 K/cumm [facility] Neutrophil pct 73.2 % [facility] Comment: Interpretive Data Percent cell count reference ranges are not reported, since discordance with absolute values may lead to misinterpretation of CBC data. Current Interpretive Data was last revised on 2017. Imm gran pct 0.4 % [facility] Comment: Interpretive Data Percent cell count reference ranges are not reported, since discordance with absolute values may lead to misinterpretation of CBC data. Current Interpretive Data was last revised on 2017. Lymphocyte pct 15.8 % [facility] Comment: Interpretive Data Percent cell count reference ranges are not reported, since discordance with absolute values may lead to misinterpretation of CBC data. Current Interpretive Data was last revised on 2017. Monocyte pct 9.8 % [facility] Comment: Interpretive Data Percent cell count reference ranges are not reported, since discordance with absolute values may lead to misinterpretation of CBC data. Current Interpretive Data was last revised on 2017. Eosinophil pct 0.4 % [facility] Comment: Interpretive Data Percent cell count reference ranges are not reported, since discordance with absolute values may lead to misinterpretation of CBC data. Current Interpretive Data was last revised on 2017. Basophil pct 0.4 % [facility] Comment: Interpretive Data Percent cell count reference ranges are not reported, since discordance with absolute values may lead to misinterpretation of CBC data. Current Interpretive Data was last revised on 2017. Blood specimen (specimen) 05/25/2019 10:42 PM CDT 05/25/2019 11:36 PM CDT Berny Carrera MD LAB BLOOD ORDERABLES Sri davalos Result [facility] Department [place] [address] * (ABNORMAL) Protime-INR (05/25/2019 10:42 PM CDT) PT 13.3(H) 8.6 - 13.0 sec [facility] INR 1.2 0.8 - 1.2 [facility] Comment: Interpretive data Oral anticoagulant therapeutic ranges: Venous thromboembolism prophylaxis or treatment: 2.0-3.0 CARDIOLOGY Standard range: 2.0-3.0 High-intensity range: 2.5-3.5 Refer to indication-specific guidelines for appropriate target ranges for prosthetic heart valve replacement. Current interpretive data was last revised on 2019. Blood specimen (specimen) 05/25/2019 10:42 PM CDT 05/25/2019 11:27 PM CDT us Kaveh Charles MD LAB BLOOD ORDERABLES Final Result [facility] Department [place] [address] * (ABNORMAL) CBC with auto differential (05/25/2019 10:42 PM CDT) [facility] WBC 7.4 3.8 - 9.9 K/cumm [facility] Hgb 9.2(L) 11.9 - 15.5 g/dL [facility] Hct 28.7(L) 35.6 - 45.5 % [facility] Plt 232 150 - 400 K/cumm [facility] MPV 10.4 9.1 - 12.3 fL [facility] RBC 2.95(L) 3.90 - 5.20 M/cumm [facility] MCV 97.3(H) 81.3 - 96.4 fL [facility] MCH 31.2 27.1 - 33.3 pg [facility] MCHC 32.1(L) 32.3 - 35.7 g/dL [facility] RDW CV 15.0(H) 11.1 - 14.9 % [facility] RDW SD 52.3(H) 35.7 - 48.1 fL [facility] NRBC abs 0.00 0.00 - 0.01 K/cumm [facility] Blood specimen (specimen) 05/25/2019 10:42 PM CDT 05/25/2019 11:36 PM CDT us Kaveh Charles MD LAB BLOOD ORDERABLES Final Result [facility] Department [place] [address] * POCT glucose (05/25/2019 9:08 PM CDT) Pathologist [facility] Glucose, POC 167 70 - 199 mg/dL [facility] Blood specimen (specimen) 05/25/2019 9:08 PM CDT 05/25/2019 9:08 PM CDT Kaveh Charles MD LAB POCT ORDERABLES - [place] CE Final Result Performing Organization Address [facility]/ZIP Co de Phone Number [facility] Department [place] [address] * (ABNORMAL) Basic metabolic panel (05/25/2019 8:30 PM CDT) [facility] Sodium 137 135 - 145 mmol/L [facility] Potassium, pl 4.1 3.3 - 4.9 mmol/L [facility] Chloride 104 97 - 110 mmol/L [facility] CO2 29 22 - 32 mmol/L [facility] Anion gap 4 2 - 15 mmol/L [facility] BUN 18 8 - 25 mg/dL [facility] Creatinine 0.62 0.60 - 1.10 mg/dL [facility] Glucose 171 70 - 199 mg/dL [facility] Comment: Interpretive Data Fasting glucose >/= [...] 2017. Calcium 8.1(L) 8.5 - 10.3 mg/dL [facility] Blood specimen (specimen) 05/25/2019 8:30 PM CDT 05/25/2019 11:36 PM CDT Kaveh Charles MD LAB BLOOD ORDERABLES Final Result Performing Organization Address City/[facility]/ZIP Co de Phone Number [facility] [place] [address] * POCT glucose (05/25/2019 4:57 PM CDT) Glucose, POC 175 70 - 199 mg/dL [facility] Blood specimen (specimen) 05/25/2019 4:57 PM CDT 05/25/2019 4:57 PM CDT Kaveh Charles MD LAB POCT ORDERABLES - [place] CE Final Result Performing Organization Address [facility] [place] [address] * (ABNORMAL) POCT glucose (05/25/2019 3:05 PM CDT) Glucose, POC 209(H) 70 - 199 mg/dL [facility] Blood specimen (specimen) 05/25/2019 3:05 PM CDT 05/25/2019 3:05 PM CDT Kaveh Charles MD LAB POCT ORDERABLES - [place] CE Final Result Performing Organization Address [facility] Co de Phone Number [facility] [place] [address] * XR Knee Left 1 or 2 [...] BJ CO2 27 22 - 32 mmol/L [facility] Anion gap 5 2 - 15 mmol/L [facility] BUN 14 8 - 25 mg/dL [facility] Creatinine 0.50(L) 0.60 - 1.10 mg/dL [facility] Glucose 204(H) 70 - 199 mg/dL [facility] Comment: Interpretive Data Fasting glucose >/= [...] 2017. Calcium 8.3(L) 8.5 - 10.3 mg/dL [facility] Blood specimen (specimen) 05/25/2019 2:19 PM CDT 05/25/2019 2:44 PM CDT Kaveh Charles MD LAB BLOOD ORDERABLES Final Result [facility] Department [place] [address] * (ABNORMAL) CBC without differential (05/25/2019 2:19 PM CDT) WBC 6.7 3.8 - 9.9 K/cumm [facility] Hgb 9.9(L) 11.9 - 15.5 g/dL [facility] Hct 30.5(L) 35.6 - 45.5 % [facility] Plt 212 150 - 400 K/cumm [facility] MPV 10.4 9.1 - 12.3 fL [facility] RBC 3.09(L) 3.90 - 5.20 M/cumm [facility] MCV 98.7(H) 81.3 - 96.4 fL [facility] MCH 32.0 27.1 - 33.3 pg [facility] MCHC 32.5 32.3 - 35.7 g/dL [facility] RDW CV 14.6 11.1 - 14.9 % [facility] RDW SD 51.8(H) 35.7 - 48.1 fL [facility] NRBC abs 0.00 0.00 - 0.01 K/cumm [facility] Blood specimen (specimen) 05/25/2019 2:19 PM CDT 05/25/2019 2:44 PM CDT Kaveh Charles MD LAB BLOOD ORDERABLES Final Result Performing Organization Address [facility] de Phone Number [facility] [place] [address] * (ABNORMAL) Protime-INR (05/25/2019 2:19 PM CDT) PT 13.3(H) 8.6 - 13.0 sec [facility] INR 1.2 0.8 - 1.2 [facility] Comment: Interpretive data Oral anticoagulant therapeutic [...] Organization Address [facility] [place] de Phone Number [facility] [place] [address] * (ABNORMAL) POC Blood Gas and Chemistries, Arterial - (05/25/2019 1:51 PM CDT) pH, Art 7.37 7.35 - 7.45 [facility] pCO2, Art POC 43 35 - 45 mmHg [facility] pO2, Art POC 252(H) 83 - 108 mmHg [facility] Na, POC 138 135 - 145 mmol/L [facility] K POC 3.8 3.3 - 4.9 mmol/L [facility] Cl, POC 105 97 - 110 mmol/L [facility] Ionized Ca, POC 4.92 4.50 - 5.10 mg/dL [facility] Glucose, POC 177 70 - 199 mg/dL [facility] Lactate, POC 1.3 0.7 - 2.2 mmol/L [facility] SO2 (tatiana) arterial 100(H) 90 - 95 % [facility] Base excess, POC -0.6 mmol/L [facility] HCO3, Art POC 25 20 - 30 mmol/L [facility] Hct, POC 26.0(L) 36.3 - 45.3 % [facility] O2 Sat, Art POC (Calc) 100 % [facility] Total Hb, POC 8.8(L) 11.9 - 15.5 g/dL [facility] Blood specimen (specimen) 05/25/2019 1:51 PM CDT 05/25/2019 1:51 PM CDT Kaveh Charles MD LAB POCT ORDERABLES - [place] CE Final Result [facility] [place] [address] * Transfuse RBC (05/25/2019 1:36 PM CDT) Blood specimen (specimen) Paul Kelly MD BLOOD TRANSFUSION ORDERABLES Final Result [facility] [place] [employer] [place] [address] * (ABNORMAL) POC Blood Gas and Chemistries, Venous - (05/25/2019 1:29 PM CDT) [facility] Signature pH, [place] POC 7.35 7.32 - 7.43 [facility] pCO2, alton POC 32(L) 40 - 50 mmHg [facility] pO2, alton POC 45 mmHg [facility] Na, POC 141 135 - 145 mmol/L [facility] K POC 2.6(L) 3.3 - 4.9 mmol/L [facility] Cl, POC 118(H) 97 - 110 mmol/L [facility] Ionized Ca, POC 3.44(L) 4.50 - 5.10 mg/dL [facility] Glucose, POC 116 70 - 199 mg/dL [facility] Lactate, POC 1.0 0.7 - 2.2 mmol/L [facility] O2 Sat, [place] POC (Tatiana) 81 % [facility] Base excess, POC -6.8 mmol/L [facility] HCO3, [place] POC 18(L) 20 - 30 mmol/L [facility] Hct, POC 19.0(L) 36.3 - 45.3 % [facility] Total Hb, POC 6.2(L) 11.9 - 15.5 g/dL [facility] O2 Sat, [place] POC (Calc) 78 % [facility] Blood specimen (specimen) 05/25/2019 1:29 PM CDT 05/25/2019 1:29 PM CDT Kaveh Charles MD LAB POCT ORDERABLES - [place] CE Final Result Performing Organization Address City/[facility]/ZIP Co de Phone Number [facility] [place] [employer] [place] [address] * POCT glucose (05/25/2019 1:00 PM CDT) Glucose, POC 156 70 - 199 mg/dL [facility] Blood specimen (specimen) 05/25/2019 1:00 PM CDT 05/25/2019 1:00 PM CDT Kaveh Charles MD LAB POCT ORDERABLES - [place] CE Final Result [facility] [place] [place] [address] * POCT glucose (05/25/2019 10:41 AM CDT) Glucose, POC 170 70 - 199 mg/dL [facility] Blood specimen (specimen) 05/25/2019 10:41 AM CDT 05/25/2019 10:41 AM CDT Kaveh Charles MD LAB POCT ORDERABLES - [place] CE Final Result Performing Organization Address [facility] [place] [address] * Type and screen (05/25/2019 10:01 AM CDT) Gian, indirect Negative [facility] ABO Rh O Positive [facility] Blood specimen (specimen) 05/25/2019 10:01 AM CDT 05/25/2019 10:15 AM CDT Narrative [facility] - 05/25/2019 11:03 AM CDT Has the patient had Daratumumab (Darzalex) in the past 6 months?->Unknown us Paulina France NP LAB BLOOD BANK TEST ORDERAB LES Final Result Performing Organization Address [facility] [place] [address] * Prepare RBC: 2 Units (05/25/2019 9:59 AM CDT) Product code [id number] [facility] Unit Number [id number] [facility] Product Blood Type OPOS [facility] Dispense Status RETURNED [facility] Product code [id number] [facility] Unit Number [id number] [facility] Product Blood Type OPOS [facility] Dispense Status PRESUMED TRANSFUSED [facility] Blood specimen (specimen) 05/25/2019 9:59 AM CDT 05/25/2019 9:59 AM CDT Narrative [facility] - 05/26/2019 12:49 AM CDT Are special requirements needed? (all products are leukoreduced)->No Date required:-[id number] [facility] # of [id number] Reasons:-Intra-op transfusion} us Paul Kelly MD BLOOD BANK PRODUCT ORDERABLES Final Result Performing Organization Address [facility] Co de Phone Number [facility] [place] [address] * POCT glucose (05/25/2019 7:54 AM CDT) Glucose, POC 155 70 - 199 mg/dL [facility] Blood specimen (specimen) 05/25/2019 7:54 AM CDT 05/25/2019 7:54 AM CDT us Kaveh Charles MD LAB POCT ORDERABLES - [place] CE Final Result Performing Organization Address [facility] de Phone Number [facility] [place] [address] * (ABNORMAL) Urinalysis, microscopic only (05/25/2019 6:11 AM CDT) WBC, ur 0-5 0 - 5 /HPF [facility] RBC, ur 0-2 0 - 2 /HPF [facility] Epithelial cells, squamous, ur 1-5 0 - 5 /HPF [facility] Mucous, ur Present(A) [facility] Culture Reflex Comment Reflex conditions for urine culture (WBC >10) not met. [facility] Urine 05/25/2019 6:11 AM CDT 05/25/2019 6:27 AM CDT us Berny Carrera MD LAB URINE ORDERABLES Sri l Result Performing Organization Address [facility] Co de Phone Number [facility] [place] [address] * (ABNORMAL) Urinalysis reflex to microscopic and culture Urine (05/25/2019 6:11 AM CDT) Color, ur Yellow Yellow [facility] Clarity, ur Clear Clear [facility] Specific gravity, ur 1.023 1.010 - 1.025 [facility] pH, urine 6 [facility] Protein, ur ql 1+(A) Negative [facility] Glucose, ur ql Negative Negative [facility] Ketones, ur Trace Negative [facility] Bilirubin, ur Negative Negative [facility] Blood, ur Negative Negative [facility] Urobilinogen, ur <2.0 <2.0 mg/dL [facility] Nitrite, ur Negative Negative [facility] Leukocyte esterase, ur Negative Negative [facility] UA reflex comment Reflex to microscopic UA will be performed. [facility] Urine 05/25/2019 6:11 AM CDT 05/25/2019 6:27 [...] tendency for uric acid stone formation. Source: [facility] [employer]. Last revised 03-26-2017 Urine pH is affected by diet, medications, systemic acid-base disturbances, and renal tubular function. ??pH may affect urinary stone formation. ??For example, urine pH below 6.0 may help reduce the tendency for calcium phosphate stones and pH greater than 6.0 may reduce the tendency for uric acid stone formation. Source: [employer]. Last revised 03-26-2017 Berny Carrera MD LAB MICROBIOLOGY - GENERA L ORDERABLES Final Result [facility] [place] [address] * POCT glucose (05/25/2019 3:34 AM CDT) Glucose, POC 164 70 - 199 mg/dL [facility] Blood specimen (specimen) 05/25/2019 3:34 AM CDT 05/25/2019 3:34 AM CDT Kaveh Charles MD LAB POCT ORDERABLES - [place] CE Final Result Performing Organization Address [facility] de Phone Number [facility] [place] [address] * POCT glucose (05/24/2019 11:32 PM CDT) Glucose, POC 153 70 - 199 mg/dL [facility] Blood specimen (specimen) 05/24/2019 11:32 PM CDT 05/24/2019 11:32 PM CDT Kaveh Charles MD LAB POCT ORDERABLES - [place] CE Final Result Performing Organization Address [facility] de Phone Number [facility] [place] [address] * Magnesium (05/24/2019 10:08 PM CDT) Magnesium 2.2 1.4 - 2.5 mg/dL [facility] Blood specimen (specimen) 05/24/2019 10:08 PM CDT 05/24/2019 10:25 PM CDT Kaveh Charles MD LAB BLOOD ORDERABLES Final Result Performing Organization Address [facility] de Phone Number [facility] [place] [address] * Differential, auto (05/24/2019 10:08 PM CDT) Neutrophil abs 4.0 1.7 - 6.5 K/cumm [facility] Imm gran abs 0.0 0.0 - 0.1 K/cumm [facility] Lymphocyte abs 1.6 0.8 - 3.3 K/cumm [facility] Monocyte abs 0.7 0.2 - 0.8 K/cumm [facility] Eosinophil abs 0.1 0.0 - 0.5 K/cumm [facility] Basophil abs 0.0 0.0 - 0.1 K/cumm [facility] Neutrophil pct 62.6 % [facility] Comment: Interpretive Data Percent cell count reference ranges are not reported, since discordance with absolute values may lead to misinterpretation of CBC data. Current Interpretive Data was last revised on 2017. Imm gran pct 0.3 % [facility] Comment: Interpretive Data Percent cell count reference ranges are not reported, since discordance with absolute values may lead to misinterpretation of CBC data. Current Interpretive Data was last revised on 2017. Lymphocyte pct 24.5 % [facility] Comment: Interpretive Data Percent cell count reference ranges are not reported, since discordance with absolute values may lead to misinterpretation of CBC data. Current Interpretive Data was last revised on 2017. Monocyte pct 10.6 % [facility] Comment: Interpretive Data Percent cell count reference ranges are not reported, since discordance with absolute values may lead to misinterpretation of CBC data. Current Interpretive Data was last revised on 2017. Eosinophil pct 1.5 % [facility] Comment: Interpretive Data Percent cell count reference ranges are not reported, since discordance with absolute values may lead to misinterpretation of CBC data. Current Interpretive Data was last revised on 2017. Basophil pct 0.5 % [facility] Comment: Interpretive Data Percent cell count reference ranges are not reported, since discordance with absolute values may lead to misinterpretation of CBC data. Current Interpretive Data was last revised on 2017. Blood specimen (specimen) 05/24/2019 10:08 PM CDT 05/24/2019 10:25 PM CDT Berny Carrera MD LAB BLOOD ORDERABLES Sri davalos Result [facility] [place] [address] * (ABNORMAL) Protime-INR (05/24/2019 10:08 PM CDT) PT 14.6(H) 8.6 - 13.0 sec [facility] INR 1.3(H) 0.8 - 1.2 [facility] Comment: Interpretive data Oral anticoagulant therapeutic ranges: Venous thromboembolism prophylaxis or treatment: 2.0-3.0 CARDIOLOGY Standard range: 2.0-3.0 High-intensity range: 2.5-3.5 Refer to indication-specific guidelines for appropriate target ranges for prosthetic heart valve replacement. Current interpretive data was last revised on 2019. Blood specimen (specimen) 05/24/2019 10:08 PM CDT 05/24/2019 10:18 PM CDT Kaveh Charles MD LAB BLOOD ORDERABLES Final Result [facility] Department [place] [address] * (ABNORMAL) Basic metabolic panel (05/24/2019 10:08 PM CDT) Pathologist [facility] Sodium 132(L) 135 - 145 mmol/L [facility] Potassium, pl 4.3 3.3 - 4.9 mmol/L [facility] Comment:Hemolyzed; Potassium value may be falsely elevated by as much as 0.6-1.0 mmol/L. Suggest redraw and reanalysis. Chloride 100 97 - 110 mmol/L [facility] CO2 23 22 - 32 mmol/L [facility] Anion gap 9 2 - 15 mmol/L [facility] BUN 18 8 - 25 mg/dL [facility] Creatinine 0.45(L) 0.60 - 1.10 mg/dL [facility] Glucose 149 70 - 199 mg/dL [facility] Comment: Interpretive Data Fasting glucose >/= [...] 2017. Calcium 8.2(L) 8.5 - 10.3 mg/dL [facility] Blood specimen (specimen) 05/24/2019 10:08 PM CDT 05/24/2019 10:25 PM CDT Kaveh Charles MD LAB BLOOD ORDERABLES Final Result [facility] [place] [address] * (ABNORMAL) CBC with auto differential (05/24/2019 10:08 PM CDT) WBC 6.5 3.8 - 9.9 K/cumm [facility] Hgb 9.4(L) 11.9 - 15.5 g/dL [facility] Hct 28.7(L) 35.6 - 45.5 % [facility] Plt 194 150 - 400 K/cumm [facility] MPV 10.3 9.1 - 12.3 fL [facility] RBC 2.98(L) 3.90 - 5.20 M/cumm [facility] MCV 96.3 81.3 - 96.4 fL [facility] MCH 31.5 27.1 - 33.3 pg [facility] MCHC 32.8 32.3 - 35.7 g/dL [facility] RDW CV 13.9 11.1 - 14.9 % [facility] RDW SD 48.5(H) 35.7 - 48.1 fL [facility] NRBC abs 0.00 0.00 - 0.01 K/cumm [facility] Blood specimen (specimen) 05/24/2019 10:08 PM CDT 05/24/2019 10:25 PM CDT Kaveh Charles MD LAB BLOOD ORDERABLES Final Result Performing Organization Address City/[facility]/ZIP Co de Phone Number [facility] [place] [address] * POCT glucose (05/24/2019 8:59 PM CDT) Glucose, POC 159 70 - 199 mg/dL [facility] Blood specimen (specimen) 05/24/2019 8:59 PM CDT 05/24/2019 8:59 PM CDT us Kaveh Charles MD LAB POCT ORDERABLES - [place] CE Final Result Performing Organization Address [facility] [place] [address] * POCT glucose (05/24/2019 3:28 PM CDT) Glucose, POC 187 70 - 199 mg/dL [facility] Blood specimen (specimen) 05/24/2019 3:28 PM CDT 05/24/2019 3:28 PM CDT us Kaveh Charles MD LAB POCT ORDERABLES - [place] CE Final Result Performing Organization Address [facility] Co de Phone Number [facility] [place] [place] [address] * POCT glucose (05/24/2019 11:16 AM CDT) Glucose, POC 189 70 - 199 mg/dL [facility] Blood specimen (specimen) 05/24/2019 11:16 AM CDT 05/24/2019 11:16 AM CDT us Kaveh Charles MD LAB POCT ORDERABLES - [place] CE Final Result Performing Organization Address City/[facility]/ZIP Co de Phone Number [facility] [place] [address] * POCT glucose (05/24/2019 7:54 AM CDT) Glucose, POC 161 70 - 199 mg/dL [facility] Blood specimen (specimen) 05/24/2019 7:54 AM CDT 05/24/2019 7:54 AM CDT Kaveh Charles MD LAB POCT ORDERABLES - [place] CE Final Result Performing Organization Address City/[facility] [place] [address] * POCT glucose (05/24/2019 4:54 AM CDT) Glucose, POC 155 70 - 199 mg/dL [facility] Blood specimen (specimen) 05/24/2019 4:54 AM CDT 05/24/2019 4:54 AM CDT us Kaveh Charles MD LAB POCT ORDERABLES - [place] CE Final Result Performing Organization Address City/[facility] [place] [address] * POCT glucose (05/24/2019 12:43 AM CDT) Glucose, POC 155 70 - 199 mg/dL [facility] Blood specimen (specimen) 05/24/2019 12:43 AM CDT 05/24/2019 12:43 AM CDT Kaveh Charles MD LAB POCT ORDERABLES - [place] CE Final Result Performing Organization Address City/[facility] [place] [address] * Differential, auto (05/23/2019 10:20 PM CDT) Neutrophil abs 4.7 1.7 - 6.5 K/cumm [facility] Imm gran abs 0.0 0.0 - 0.1 K/cumm [facility] Lymphocyte abs 1.5 0.8 - 3.3 K/cumm [facility] Monocyte abs 0.7 0.2 - 0.8 K/cumm [facility] Eosinophil abs 0.0 0.0 - 0.5 K/cumm [facility] Basophil abs 0.0 0.0 - 0.1 K/cumm [facility] Neutrophil pct 66.8 % [facility] Comment: Interpretive Data Percent cell count reference ranges are not reported, since discordance with absolute values may lead to misinterpretation of CBC data. Current Interpretive Data was last revised on 2017. Imm gran pct 0.4 % [facility] Comment: Interpretive Data Percent cell count reference ranges are not reported, since discordance with absolute values may lead to misinterpretation of CBC data. Current Interpretive Data was last revised on 2017. Lymphocyte pct 21.6 % [facility] Comment: Interpretive Data Percent cell count reference ranges are not reported, since discordance with absolute values may lead to misinterpretation of CBC data. Current Interpretive Data was last revised on 2017. Monocyte pct 10.2 % [facility] Comment: Interpretive Data Percent cell count reference ranges are not reported, since discordance with absolute values may lead to misinterpretation of CBC data. Current Interpretive Data was last revised on 2017. Eosinophil pct 0.7 % [facility] Comment: Interpretive Data Percent cell count reference ranges are not reported, since discordance with absolute values may lead to misinterpretation of CBC data. Current Interpretive Data was last revised on 2017. Basophil pct 0.3 % [facility] Comment: Interpretive Data Percent cell count reference ranges are not reported, since discordance with absolute values may lead to misinterpretation of CBC data. Current Interpretive Data was last revised on 2017. Blood specimen (specimen) 05/23/2019 10:20 PM CDT 05/23/2019 10:42 PM CDT Berny Carrera MD LAB BLOOD ORDERABLES Sri l Result [facility] [place] [address] * (ABNORMAL) Basic metabolic panel (05/23/2019 10:20 PM CDT) Pathologist [facility] Sodium 136 135 - 145 mmol/L [facility] Potassium, pl 3.8 3.3 - 4.9 mmol/L [facility] Chloride 101 97 - 110 mmol/L [facility] CO2 30 22 - 32 mmol/L [facility] Anion gap 5 2 - 15 mmol/L [facility] BUN 18 8 - 25 mg/dL [facility] Creatinine 0.59(L) 0.60 - 1.10 mg/dL [facility] Glucose 163 70 - 199 mg/dL [facility] Comment: Interpretive Data Fasting glucose >/= [...] 2017. Calcium 8.8 8.5 - 10.3 mg/dL [facility] Blood specimen (specimen) 05/23/2019 10:20 PM CDT 05/23/2019 10:42 PM CDT Kaveh Charles MD LAB BLOOD ORDERABLES Final Result [facility] Department [place] [address] * (ABNORMAL) CBC with auto differential (05/23/2019 10:20 PM CDT) Pathologist [facility] WBC 7.0 3.8 - 9.9 K/cumm [facility] Hgb 9.2(L) 11.9 - 15.5 g/dL [facility] Hct 28.1(L) 35.6 - 45.5 % [facility] Plt 186 150 - 400 K/cumm [facility] MPV 9.8 9.1 - 12.3 fL [facility] RBC 2.92(L) 3.90 - 5.20 M/cumm [facility] MCV 96.2 81.3 - 96.4 fL [facility] MCH 31.5 27.1 - 33.3 pg [facility] MCHC 32.7 32.3 - 35.7 g/dL [facility] RDW CV 13.9 11.1 - 14.9 % [facility] RDW SD 49.3(H) 35.7 - 48.1 fL [facility] NRBC abs 0.00 0.00 - 0.01 K/cumm [facility] Blood specimen (specimen) 05/23/2019 10:20 PM CDT 05/23/2019 10:42 PM CDT Kaveh Charles MD LAB BLOOD ORDERABLES Final Result [facility] [place] [employer] [place] [address] * POCT glucose (05/23/2019 9:43 PM CDT) Glucose, POC 173 70 - 199 mg/dL [facility] Blood specimen (specimen) 05/23/2019 9:43 PM CDT 05/23/2019 9:43 PM CDT Kaveh Charles MD LAB POCT ORDERABLES - [place] CE Final Result [facility] [place] [address] * POCT glucose (05/23/2019 4:35 PM CDT) Glucose, POC 165 70 - 199 mg/dL [facility] Blood specimen (specimen) 05/23/2019 4:35 PM CDT 05/23/2019 4:35 PM CDT Kaveh Charles MD LAB POCT ORDERABLES - [place] CE Final Result Performing Organization Address [facility] Co de Phone Number [facility] [place] [address] * POCT glucose (05/23/2019 11:22 AM CDT) Glucose, POC 174 70 - 199 mg/dL [facility] Blood specimen (specimen) 05/23/2019 11:22 AM CDT 05/23/2019 11:22 AM CDT us Kaveh Charles MD LAB POCT ORDERABLES - [place] CE Final Result Performing Organization Address [facility] de Phone Number [facility] [place] [employer] [place] [address] * POCT glucose (05/23/2019 8:21 AM CDT) Glucose, POC 169 70 - 199 mg/dL [facility] Blood specimen (specimen) 05/23/2019 8:21 AM CDT 05/23/2019 8:21 AM CDT us Kaveh Charles MD LAB POCT ORDERABLES - [place] CE Final Result Performing Organization Address [facility] Co de Phone Number [facility] [place] [place] [address] * POCT glucose (05/23/2019 4:42 AM CDT) Glucose, POC 156 70 - 199 mg/dL [facility] Blood specimen (specimen) 05/23/2019 4:42 AM CDT 05/23/2019 4:42 AM CDT Kaveh Charles MD LAB POCT ORDERABLES - [place] CE Final Result Performing Organization Address City/[facility] Co de Phone Number [facility] [place] [address] * POCT glucose (05/23/2019 12:12 AM CDT) Pathologist [facility] Glucose, POC 183 70 - 199 mg/dL [facility] Blood specimen (specimen) 05/23/2019 12:12 AM CDT 05/23/2019 12:12 AM CDT Kaveh Charles MD LAB POCT ORDERABLES - [place] CE Final Result Performing Organization Address [facility] de Phone Number [facility] [place] [address] * Differential, auto (05/22/2019 11:17 PM CDT) Pathologist [facility] Neutrophil abs 5.3 1.7 - 6.5 K/cumm [facility] Imm gran abs 0.0 0.0 - 0.1 K/cumm [facility] Lymphocyte abs 1.3 0.8 - 3.3 K/cumm [facility] Monocyte abs 0.8 0.2 - 0.8 K/cumm [facility] Eosinophil abs 0.0 0.0 - 0.5 K/cumm [facility] Basophil abs 0.0 0.0 - 0.1 K/cumm [facility] Neutrophil pct 71.2 % [facility] Comment: Interpretive Data Percent cell count reference ranges are not reported, since discordance with absolute values may lead to misinterpretation of CBC data. Current Interpretive Data was last revised on 2017. Imm gran pct 0.3 % [facility] Comment: Interpretive Data Percent cell count reference ranges are not reported, since discordance with absolute values may lead to misinterpretation of CBC data. Current Interpretive Data was last revised on 2017. Lymphocyte pct 17.6 % [facility] Comment: Interpretive Data Percent cell count reference ranges are not reported, since discordance with absolute values may lead to misinterpretation of CBC data. Current Interpretive Data was last revised on 2017. Monocyte pct 10.1 % [facility] [place] Comment: Interpretive Data Percent cell count reference [...] MD LAB BLOOD ORDERABLES Sri davalos Result [facility] [place] [address] * (ABNORMAL) Basic metabolic panel (05/22/2019 11:17 PM CDT) Sodium 136 135 - 145 mmol/L [facility] Potassium, pl 3.7 3.3 - 4.9 mmol/L [facility] Chloride 102 97 - 110 mmol/L [facility] CO2 29 22 - 32 mmol/L [facility] Anion gap 5 2 - 15 mmol/L [facility] BUN 25 8 - 25 mg/dL [facility] Creatinine 0.83 0.60 - 1.10 mg/dL [facility] Glucose 180 70 - 199 mg/dL [facility] Comment: Interpretive Data Fasting glucose >/= [...] 2017. Calcium 8.4(L) 8.5 - 10.3 mg/dL [facility] Blood specimen (specimen) 05/22/2019 11:17 PM CDT 05/22/2019 11:34 PM CDT Kaveh Charles MD LAB BLOOD ORDERABLES Final Result [facility] [place] [address] * (ABNORMAL) CBC with auto differential (05/22/2019 11:17 PM CDT) WBC 7.4 3.8 - 9.9 K/cumm [facility] Hgb 9.9(L) 11.9 - 15.5 g/dL [facility] Hct 30.3(L) 35.6 - 45.5 % [facility] Plt 203 150 - 400 K/cumm [facility] MPV 10.3 9.1 - 12.3 fL [facility] RBC 3.15(L) 3.90 - 5.20 M/cumm [facility] MCV 96.2 81.3 - 96.4 fL [facility] MCH 31.4 27.1 - 33.3 pg [facility] MCHC 32.7 32.3 - 35.7 g/dL [facility] RDW CV 13.9 11.1 - 14.9 % [facility] RDW SD 48.9(H) 35.7 - 48.1 fL [facility] NRBC abs 0.00 0.00 - 0.01 K/cumm [facility] Blood specimen (specimen) 05/22/2019 11:17 PM CDT 05/22/2019 11:35 PM CDT Kaveh Charles MD LAB BLOOD ORDERABLES Final Result Performing Organization Address [facility] de Phone Number [facility] [place] [address] * POCT glucose (05/22/2019 9:23 PM CDT) Glucose, POC 171 70 - 199 mg/dL [facility] Blood specimen (specimen) 05/22/2019 9:23 PM CDT 05/22/2019 9:23 PM CDT Kaveh Charles MD LAB POCT ORDERABLES - DESTINEE CE Final Result Performing Organization Address [facility] de Phone Number [facility] [place] [employer] [place] [address] * POCT glucose (05/22/2019 5:18 PM CDT) Glucose, POC 147 70 - 199 mg/dL [facility] Blood specimen (specimen) 05/22/2019 5:18 PM CDT 05/22/2019 5:18 PM CDT Kaveh Charles MD LAB POCT ORDERABLES - DESTINEE CE Final Result Performing Organization Address [facility] [place] [address] * POCT glucose (05/22/2019 11:21 AM CDT) Glucose, POC 171 70 - 199 mg/dL [facility] Blood specimen (specimen) 05/22/2019 11:21 AM CDT 05/22/2019 11:21 AM CDT us Steve Garcia MD LAB POCT ORDERABLES - DEV ICE Final Result Performing Organization Address [facility] Co de Phone Number [facility] [place] [address] * POCT glucose (05/22/2019 10:30 AM CDT) Glucose, POC 104 70 - 199 mg/dL [facility] Glucose comment 1 RN Notified [facility] Blood specimen (specimen) 05/22/2019 10:30 AM CDT 05/22/2019 10:30 AM CDT us Steve Garcia MD LAB POCT ORDERABLES - DEV ICE Final Result Performing Organization Address [facility] de Phone Number [facility] [place] [address] * POCT glucose (05/22/2019 8:29 AM CDT) Glucose, POC 131 70 - 199 mg/dL [facility] Blood specimen (specimen) 05/22/2019 8:29 AM CDT 05/22/2019 8:29 AM CDT us Steve Garcia MD LAB POCT ORDERABLES - DEV ICE Final Result Performing Organization Address [facility] Co de Phone Number [facility] [place] [place] [address] * POCT glucose (05/22/2019 6:39 AM CDT) Glucose, POC 178 70 - 199 mg/dL [facility] Blood specimen (specimen) 05/22/2019 6:39 AM CDT 05/22/2019 6:39 AM CDT Steve Garcia MD LAB POCT ORDERABLES - DEV ICE Final Result Performing Organization Address [facility] Co de Phone Number [facility] Department [place] [address] * POCT glucose (05/22/2019 4:59 AM CDT) Glucose, POC 190 70 - 199 mg/dL [facility] Blood specimen (specimen) 05/22/2019 4:59 AM CDT 05/22/2019 4:59 AM CDT us Steve Garcia MD LAB POCT ORDERABLES - DEV ICE Final Result Performing Organization Address [facility] [place] [address] * (ABNORMAL) Protime-INR (05/22/2019 4:57 AM CDT) [facility] PT 15.1(H) 8.6 - 13.0 sec [facility] INR 1.4(H) 0.8 - 1.2 [facility] Comment: Interpretive data Oral anticoagulant therapeutic [...] ORDERABLES Sri l Result Performing Organization Address [facility] Co de Phone Number [facility] [place] [address] * POCT glucose (05/22/2019 12:39 AM AUTO CRANE DRIVER) Glucose, POC 160 70 - 199 mg/dL [facility] Blood specimen (specimen) 05/22/2019 12:39 AM AUTO CRANE DRIVER 05/22/2019 12:39 AM AUTO CRANE DRIVER us Steve Garcia MD LAB POCT ORDERABLES - DEV ICE Final Result Performing Organization Address [facility] de Phone Number [facility] [place] [address] * Check Sample (05/21/2019 11:48 PM AUTO CRANE DRIVER) ABO Rh O Positive [facility] HCLL OTHER 05/21/2019 11:4 8 PM AUTO CRANE DRIVER 05/22/2019 12:22 AM AUTO CRANE DRIVER us Steve Garcia MD LAB BLOOD ORDERABLES Sri l Result Performing Organization Address [facility] de Phone Number [facility] [place] [address] * POCT glucose (05/21/2019 11:47 PM AUTO CRANE DRIVER) Glucose, POC 158 70 - 199 mg/dL [facility] Blood specimen (specimen) 05/21/2019 11:47 PM AUTO CRANE DRIVER 05/21/2019 11:47 PM AUTO CRANE DRIVER Steve Garcia MD LAB POCT ORDERABLES - DEV ICE Final Result Performing Organization Address [facility] de Phone Number [facility] [place] [place] [address] * CT Knee Left WO Contrast (05/21/2019 10:21 PM AUTO CRANE DRIVER) Anatomical Region Laterality Modality Lower Extremities Left Computed Tomog noel 05/21/2019 10:4 6 PM AUTO CRANE DRIVER Impressions 05/23/2019 9:24 AM CDT 1. ??Complex [...] 5.4 cm best seen on slice location -8352.9. ??There is likely disruption of the anterior [...] CT MR Outside Consult (05/21/2019 8:41 PM AUTO CRANE DRIVER) Anatomical Region Laterality Modality N/A Computed Tomogra phy 05/21/2019 8:49 PM AUTO CRANE DRIVER Impressions 05/22/2019 9:46 AM CDT 1. ??No [...] images may or may not represent the ho-chunk source data set and thus may contain [...] IMAGING STUDY STUDY INITIALLY PERFORMED: 05/21/2019 at [facility]. TYPE OF STUDY: Multiple CT images of [...] IMAGING STUDY STUDY INITIALLY PERFORMED: 05/21/2019 at [facility]. TYPE OF STUDY: Multiple CT images of [...] images may or may not represent the ho-chunk source data set and thus may contain [...] Cervical Spine WO Contrast (05/21/2019 8:29 PM AUTO CRANE DRIVER) Anatomical Region Laterality Modality Spine N/A Computed Tomogra phy 05/21/2019 8:43 PM AUTO CRANE DRIVER Addenda Addendum by Isreal Izaguirre MD PhD on 02/27/2021 9:33 PM AUTO CRANE DRIVER Patient had follow up with ENT 12/19/20. [...] Electronically signed by: Isreal Izaguirre M.D, PHD [facility] Nahun Malone MD [facility] CT PROCEDURES Edite d Result - Final * XR Knee Left 1 or 2 Views (05/21/2019 8:26 PM AUTO CRANE DRIVER) Anatomical Region Laterality Modality Lower Extremities, Knee Left Computed Radiography 05/21/2019 8:37 PM AUTO CRANE DRIVER Impressions 05/23/2019 7:07 AM CDT 1. ??Highly [...] 1 or 2 Views (05/21/2019 8:26 PM AUTO CRANE DRIVER) Anatomical Region Laterality Modality Body, Pelvis N/A Computed Radiogr aphy 05/21/2019 8:37 PM AUTO CRANE DRIVER Impressions 05/23/2019 7:07 AM CDT 1. ??Highly [...] 2 or More Views (05/21/2019 8:25 PM AUTO CRANE DRIVER) Anatomical Region Laterality Modality Lower Extremities, Thigh, Femur Left Computed Radiography 05/21/2019 8:37 PM AUTO CRANE DRIVER Impressions 05/23/2019 7:07 AM CDT 1. ??Highly [...] XR Chest 1 View (05/21/2019 8:24 PM AUTO CRANE DRIVER) Anatomical Region Laterality Modality Body, Chest N/A Computed Radiogr aphy 05/21/2019 8:29 PM AUTO CRANE DRIVER Impressions 05/23/2019 7:07 AM CDT Comparison is [...] * (ABNORMAL) Differential, auto (05/21/2019 7:43 PM AUTO CRANE DRIVER) Neutrophil abs 7.8(H) 1.7 - 6.5 K/cumm [facility] Imm gran abs 0.0 0.0 - 0.1 K/cumm [facility] Lymphocyte abs 1.4 0.8 - 3.3 K/cumm [facility] Monocyte abs 0.6 0.2 - 0.8 K/cumm [facility] Eosinophil abs 0.0 0.0 - 0.5 K/cumm [facility] Basophil abs 0.0 0.0 - 0.1 K/cumm [facility] Neutrophil pct 78.3 % [facility] Comment: Interpretive Data Percent cell count reference ranges are not reported, since discordance with absolute values may lead to misinterpretation of CBC data. Current Interpretive Data was last revised on 2017. Imm gran pct 0.5 % [facility] Comment: Interpretive Data Percent cell count reference ranges are not reported, since discordance with absolute values may lead to misinterpretation of CBC data. Current Interpretive Data was last revised on 2017. Lymphocyte pct 14.2 % [facility] Comment: Interpretive Data Percent cell count reference ranges are not reported, since discordance with absolute values may lead to misinterpretation of CBC data. Current Interpretive Data was last revised on 2017. Monocyte pct 6.6 % [facility] Comment: Interpretive Data Percent cell count reference ranges are not reported, since discordance with absolute values may lead to misinterpretation of CBC data. Current Interpretive Data was last revised on 2017. Eosinophil pct 0.1 % [facility] Comment: Interpretive Data Percent cell count reference ranges are not reported, since discordance with absolute values may lead to misinterpretation of CBC data. Current Interpretive Data was last revised on 2017. Basophil pct 0.3 % [facility] Comment: Interpretive Data Percent cell count reference ranges are not reported, since discordance with absolute values may lead to misinterpretation of CBC data. Current Interpretive Data was last revised on 2017. Blood specimen (specimen) 05/21/2019 7:43 PM AUTO CRANE DRIVER 05/21/2019 8:08 PM AUTO CRANE DRIVER us Alessandro Malone MD LAB BLOOD ORDERABLES Fi nal Result Performing Organization Address [facility] [place] [address] * aPTT (05/21/2019 7:43 PM AUTO CRANE DRIVER) aPTT 32 25 - 37 sec [facility] Comment: Interpretive data Heparin therapeutic range: 60-90 seconds Range based on correlation with therapeutic heparin activity range of 0.3-0.7 units/ml. Current interpretive data was last revised on 2019. Blood specimen (specimen) 05/21/2019 7:43 PM AUTO CRANE DRIVER 05/21/2019 7:52 PM AUTO CRANE DRIVER Narrative [facility] - 05/21/2019 8:23 PM AUTO CRANE DRIVER THE COLLECTION LOCATION IS [address] Result [facility] LAB BLOOD ORDERABLES Fi nal Result Performing Organization Address [facility] de Phone Number [facility] [place] [place] [address] * (ABNORMAL) Protime-INR (05/21/2019 7:43 PM AUTO CRANE DRIVER) PT 33.0(H) 8.6 - 13.0 sec [facility] INR 3.0(H) 0.8 - 1.2 [facility] Comment: Interpretive data Oral anticoagulant therapeutic ranges: Venous thromboembolism prophylaxis or treatment: 2.0-3.0 CARDIOLOGY Standard range: 2.0-3.0 High-intensity range: 2.5-3.5 Refer to indication-specific guidelines for appropriate target ranges for prosthetic heart valve replacement. Current interpretive data was last revised on 2019. Blood specimen (specimen) 05/21/2019 7:43 PM AUTO CRANE DRIVER 05/21/2019 7:52 PM AUTO CRANE DRIVER Narrative [facility] - 05/21/2019 8:23 PM AUTO CRANE DRIVER THE COLLECTION LOCATION IS [address] Result [facility] Alessandro Malone MD LAB BLOOD ORDERABLES Fi nal Result Performing Organization Address [facility] [place] [address] * Type and screen (05/21/2019 7:43 PM AUTO CRANE DRIVER) Pathologist [facility] ABO Rh O Positive [facility] Gian, indirect Negative [facility] Blood specimen (specimen) 05/21/2019 7:43 PM AUTO CRANE DRIVER 05/21/2019 10:01 PM AUTO CRANE DRIVER Narrative [facility] - 05/21/2019 10:57 PM AUTO CRANE DRIVER Has the patient had Daratumumab (Darzalex) in the past 6 months?->Unknown THE COLLECTION LOCATION IS [address] Alessandro Malone MD LAB BLOOD BANK TEST ORD ERABLES Final Result Performing Organization Address [facility] de Phone Number [facility] [place] [address] * (ABNORMAL) Comprehensive metabolic panel (05/21/2019 7:43 PM AUTO CRANE DRIVER) [facility] Sodium 137 135 - 145 mmol/L [facility] Potassium, pl 3.8 3.3 - 4.9 mmol/L [facility] Chloride 103 97 - 110 mmol/L [facility] CO2 25 22 - 32 mmol/L [facility] Anion gap 9 2 - 15 mmol/L [facility] BUN 17 8 - 25 mg/dL [facility] Creatinine 0.53(L) 0.60 - 1.10 mg/dL [facility] Glucose 180 70 - 199 mg/dL [facility] Comment: Interpretive Data Fasting glucose >/= [...] 2017. Calcium 9.2 8.5 - 10.3 mg/dL [facility] Bilirubin, total 1.0 0.1 - 1.2 mg/dL [facility] Protein, pl 7.1 6.5 - 8.5 g/dL [facility] Albumin 3.6 3.5 - 5.0 g/dL [facility] Alk phos 78 40 - 130 Units/L [facility] ALT 38 7 - 45 Units/L [facility] AST 64(H) 10 - 45 Units/L [facility] Blood specimen (specimen) 05/21/2019 7:43 PM AUTO CRANE DRIVER 05/21/2019 8:07 PM AUTO CRANE DRIVER Narrative [facility] - 05/21/2019 8:34 PM AUTO CRANE DRIVER THE COLLECTION LOCATION IS [address] Alessandro Nahun Malone MD LAB BLOOD ORDERABLES Fi nal Result [facility] [place] [address] * (ABNORMAL) CBC with auto differential (05/21/2019 7:43 PM AUTO CRANE DRIVER) WBC 9.9 3.8 - 9.9 K/cumm [facility] Hgb 12.0 11.9 - 15.5 g/dL [facility] Hct 36.7 35.6 - 45.5 % [facility] Plt 259 150 - 400 K/cumm [facility] MPV 10.3 9.1 - 12.3 fL [facility] RBC 3.82(L) 3.90 - 5.20 M/cumm [facility] MCV 96.1 81.3 - 96.4 fL [facility] MCH 31.4 27.1 - 33.3 pg [facility] MCHC 32.7 32.3 - 35.7 g/dL [facility] RDW CV 13.7 11.1 - 14.9 % [facility] RDW SD 48.4(H) 35.7 - 48.1 fL [facility] NRBC abs 0.00 0.00 - 0.01 K/cumm [facility] Blood specimen (specimen) 05/21/2019 7:43 PM AUTO CRANE DRIVER 05/21/2019 8:08 PM AUTO CRANE DRIVER Narrative [facility] - 05/21/2019 8:16 PM AUTO CRANE DRIVER THE COLLECTION LOCATION IS [address] us Alessandro Malone MD LAB BLOOD ORDERABLES Fi nal Result [facility] One [facility] [place] [address] * (ABNORMAL) ECG 12-LEAD (05/21/2019 7:40 PM AUTO CRANE DRIVER) Narrative [facility] - 05/21/2019 7:40 PM AUTO CRANE DRIVER Berny Carrera MD ? 05/21/2019 ??7:40 PM [...] ORDERABLES Final R esult Performing Organization Address [facility] Co de Phone Number [facility] * XR Outside Reference (05/21/2019 7:33 PM AUTO CRANE DRIVER) Impressions [facility] - 05/21/2019 7:33 PM AUTO CRANE DRIVER These images are for Reference purposes only and have not been reviewed by [facility] Radiology. ??There will be no report generated by a [facility] Radiologist. Narrative [facility] - 05/21/2019 7:33 PM AUTO CRANE DRIVER EXAMINATION: ??Images For Reference Purposes Only Alessandro Malone MD IMG XR PROCEDURES Final Result Performing Organization Address [facility] de Phone Number [email or web address] * POCT glucose (05/21/2019 7:27 PM AUTO CRANE DRIVER) Glucose, POC 171 70 - 199 mg/dL [facility] Blood specimen (specimen) 05/21/2019 7:27 PM AUTO CRANE DRIVER 05/21/2019 7:27 PM AUTO CRANE DRIVER Notinfile Unknown LAB POCT ORDERABLES - DEVICE F inal Result Performing Organization Address [facility] de Phone Number [facility] One [facility] [place] [address] documented in this encounter Visit Diagnoses Diagnosis Open fracture of left distal femur (CMS/HCC) ([facility])- Primary Closed fracture of distal end of left femur, unspecified fracture morphology, initial encounter ([facility]) Other type I or II open fracture of distal end of left femur, initial encounter ([facility]) Closed displaced comminuted fracture of shaft of left femur ([facility]) documented in this encounter Admitting Diagnoses Diagnosis [...] Tissue Infection New Bag 05/21/2019 8:37 PM AUTO CRANE DRIVER 2,000 mg 400 mL/hr ceFAZolin (ANCEF) 2,000 [...] Call MD for each episode of hypoglycemia. DIABETES EDUCATION COORDINATOR STATES GLUTOSE-15 CONTAINS GLUCOSE 40% W/W (50% W/V), Indications: hypoglycemic disorderIndications:hypoglycemic disorder dextrose 5% and sodium chloride 0.45% with potassium chloride 20 mEq/L infusion (premix) 100 mL/hr, intravenous, Continuous, Starting on Thu05/22/19 at 0045 New Bag 05/22/2019 12:26 AM AUTO CRANE DRIVER 100 mL/hr 100 mL/hr DULoxetine DR (CYMBALTA) [...] 05/21/19 at 1933 Given 05/21/2019 10:56 PM AUTO CRANE DRIVER 4 mg Given 05/21/2019 7:52 PM AUTO CRANE DRIVER 4 mg ondansetron (ZOFRAN) injection 4 mg 4 mg, intravenous, Administer over 2 Minutes, Every 4 hours PRN, nausea, vomiting, Starting on 05/21/19 at 1936 Given 05/21/2019 7:52 PM AUTO CRANE DRIVER 4 mg ondansetron (ZOFRAN) injection 4 mg [...] Prothrombin Deficiency New Bag 05/22/2019 12:25 AM AUTO CRANE DRIVER 10 mg 153 mL/hr prothrombin complex four [...] Prothrombin Deficiency New Bag 05/22/2019 12:25 AM AUTO CRANE DRIVER 2,242 Units ramelteon (ROZEREM) tablet 8 mg [...] episode of hypoglycemia., Indications: hypoglycemic disorder 101 ([facility] Hold - Provider: Automatic Transfer Provider - Reason: Patient not available)1722 ([facility] Unhold - Provider: Ryann Mcqueen [...] Call MD for each episode of hypoglycemia. DIABETES EDUCATION COORDINATOR STATES GLUTOSE-15 CONTAINS GLUCOSE 40% W/W (50% [...] Transfer Provider - Reason: Patient not available)1723 ([facility] Unhold - Provider: Ryann Mcqueen, ARMANI) [...] Indications: nausea and vomiting 1121 ([facility] Provider: Kendy Nicole, ARMANI) ondansetron ODT [...] Call MD for each episode of hypoglycemia. DIABETES EDUCATION COORDINATOR STATES GLUTOSE-15 CONTAINS GLUCOSE 40% W/W (50% [...] 05/21/2019 documented in this encounter Care Teams Poker In Relationship Specialty Start Date End Date Wilber Cleaning Jr., MD [address] [place] [address] PCP - General 07/03/16 07/15/20 documented as of this encounter
--- OUTSIDE RECORDS SUMMARY | 2024-03-25 11:05 | XMS_ITS | Encounter Summary ---
Author Organization [facility] Medical Group Address [address] [place] [address] Care Team Providers Care Direct Mail Marketer Name Role Phone Hermila Calhoun MD, Wilber Martinez Primary Care Provider Ryann Galdamez Primary Care Provider [phone] Encounter Details Date Type Department Care Team (Late st Contact Info) Description 06/09/2019 Orders Only [facility] Health Information Management [address] [place] [address] Scanning, Provider Social History Tobacco Use Types [...] on file Legal Sex Female 4:20 AM [employer] Gender Identity Not on file Sexual Orientation [...] pt afebrile, without URI signs/symptoms. Aislinn Goldsmith, PERCUSSION TEACHER 06/09/2019 06/09/2019 06/09/2019 4:20 PM C DT documented as of this encounter Care Teams Direct Mail Marketer Relationship Specialty Start Date End Date Wilber Cleaning Jr., MD [address] [place] [address] PCP - General 07/03/16 07/15/20 Ryann Galdamez PA [address] [place] [address] PCP - General Parcel Contractor 07/16/20 04/01/21 documented as of this encounter
--- OUTSIDE RECORDS SUMMARY | 2024-03-25 11:05 | XMS_ITS | Encounter Summary ---
Author Organization [facility] Healthcare Address [address] [place] [address] Care Team Providers Care Vehicle Body Sander Name Role Phone Hermila Calhoun MD, Wilber Martinez Primary Care Provider Reason for Visit * Reason Comments Shortness of Breath Dizziness Encounter Details Date Type Department Care Team (Late st Contact Info) Description 06/08/2019 3:47 PM CDT - 06/13/2019 2:23 PM CDT Hospital Encounter [facility] [address] [place] [address] Pascale Santos MD [address] [place] [address] Ned Urbina MD [address] [facility] [address] [place] [address] Atrial fibrillation, unspecified type (CMS/HCC) (Primary Dx); [...] file 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 Gender Identity Not on file Sexual Orientation [...] Diagnosis Hypertensive heart disease with heart failure ([facility] ([facility]) - HYPERTENSIVE HEART DISEASE WITH HEART FAILURE Unspecified hypertensive heart disease with heart failure Other pulmonary embolism without acute cor pulmonale ([facility]) - OTHER PULMONARY EMBOLISM WITHOUT ACUTE COR PULMONALE Non-ST elevation (NSTEMI) myocardial infarction ([facility] ([facility]) - NON-ST ELEVATION (NSTEMI) MYOCARDIAL INFARCTION Chronic atrial fibrillation, unspecified ([facility]) - CHRONIC ATRIAL FIBRILLATION, UNSPECIFIED Acute posthemorrhagic anemia - ACUTE POSTHEMORRHAGIC ANEMIA Acute on chronic systolic (congestive) heart failure ([facility]) - ACUTE ON CHRONIC SYSTOLIC (CONGESTIVE) HEART FAILURE Hypothyroidism, unspecified - HYPOTHYROIDISM, UNSPECIFIED Type 2 diabetes mellitus without complications ([facility]) ([facility]) - TYPE 2 DIABETES MELLITUS WITHOUT COMPLICATIONS Hyperlipidemia, unspecified - HYPERLIPIDEMIA, UNSPECIFIED Adult failure to thrive - ADULT FAILURE TO THRIVE assisted (current) use of insulin ([facility]) - 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 Your coreg dose is 6.25 BID. You [...] after until told to stop by a hoist mechanic. Your coreg dose is 6.25 BID. For [...] Disposition Code Departure Means Destination Discharge to [facility] documented in this encounter Progress Notes * Yoly Cook LCSW - 06/13/2019 12:53 PM CDT 06/13/19 1250 Discharge Summary Discharge Disposition SNF, Commercial Insurance, Short term Skilled Specify Facility [address] Facility Contact Number [phone] fax [phone] Discharge Records Chart Copied;Transfer Form Completed Discharge Additional Assistance Does the patient need discharge transport arranged? Yes Has discharge transport been arranged? Yes Details of Transportation [facility] [phone] Trip # [id number] What day is the transport expected? 06/13/19 [...] faxed d/c summary and med list to [phone]. All parties are aware and agreeable to d/c plan.SW did call and speak with pt's , Ravi, per pt's request [phone]. RN aware to call report. SW completed the transfer COVID-19 form. No further SW needs at this time. Cat UDAY Cook [phone] * Yoly Cook LCSW - 06/13/2019 12:50 PM CDT 06/13/19 1250 Communications Important Message from Medicare notice given to patient? Yes Copy of IM letter provided to pt. SW also faxed IM letter to [phone]. SW to follow. Cat UDAY Cook [phone] * Ryann Juarez MD - 06/13/2019 6:34 [...] Ryann Juarez MD Adult Reconstruction Fellow Pager: [phone] * David Horn MD - 06/12/2019 8:47 [...] on 06/09/2019at 1805 Electronically signed by: Jorge oStomayor M.D., MPH A/P Ms. Pearce is a [...] at 6.34, last troponin 2.97 - Outpt [facility] once acute illness resolves #Distal femur fracture: [...] Obtained From Spouse Name via telephone-Ravi Pearce [phone] Referral Data Referral Source Therapist Referral Reason Discharge Planning Prior to Admission Primary Caregiver Facility staff Support System Spouse/Significant Other Support system contact info (name, phone, availablity) Ravi Pearce [phone] Home Care Services No Durable Medical Equipment None Living Arrangements senior living ([facility]. Pt living with spouse prior to admission at [facility] this month. ) Type of Residence senior living Does patient wish to return to care facility? Unable to assess Facility contact name and number: [facility] Financial Resource Income Intermediate/Pension Payor Source Medicare advantage Potential Discharge Needs Home Health [facility] Anticipated discharge level of care Acute Rehab Pt/Family agrees with Anticipated Level of Care Unknown Comment Unable to speak with patient. has not decided at this point. Patient expects to be discharged to: Acute Rehab Social History: Prior to admission the patient was living at [facility] for a short period oftime. Pt was living at home with her independently prior to [facility]. Pt resides with her spouse Ravi Pearce [phone]. Pt was not using DME at home, [...] not being able to enter the room [id number] precautions in the hospital. Based on a [...] once decided. Insurance Information: Kaye Kailey Quevedoson WATER TANKER DRIVER, Weekend Education Consultant For emergency needs from 4:31 p.m. - 7:59 a.m., please call the ED Education Consultant . For weekend needs from 8:00 a.m. [...] at 6.34, last troponin 2.97 - Outpt [facility] once acute illness resolves #Distal femur fracture: [...] Wound Therapy Left Knee (Active) Site Assessment Intact;[place] 06/10/2019 7:00 PM Taya-wound Assessment Dry;Intact 06/10/2019 [...] Site 05/25/19 Left Knee (Active) Site Assessment Intact;[place] 06/10/2019 7:00 PM Taya-wound Assessment Dry;Intact 06/10/2019 7:00 PM Closure [place];Sutures 06/10/2019 7:00 PM Drainage Amount Small 06/10/2019 [...] questions. Steve Kumar MD PGY-4, Orthopaedic Surgery [phone] If unable to reach by phone, please page using [email or web address] If questions arise overnight or on weekends, the ortho team can be reached at: [phone] (Floor Resident ) [phone] (Consult Resident) * Shira Noland, RN - 06/10/2019 11:39 AM CDT 06/10/19 1136 Information Information Obtained From Patient Referral Data Referral Source Cad Draftsman Referral Reason Discharge Planning Prior to Admission Primary Caregiver Self Support System Spouse/Significant Other Support system contact info (name, phone, availablity) Home Care Services No Durable Medical Equipment None Living Arrangements Spouse/significant other Type of Residence Private residence Financial Resource Income Intermediate/Pension Payor Source Medicare advantage Potential Discharge Needs Anticipated discharge level of care [facility] facility Pt/Family agrees with Anticipated Level of Care Yes Patient expects to be discharged to: [facility] Facility Dialysis No Behavioral Health Services No [...] likely need ambulance transport to return to [facility] when stable. hospice manager will continue to follow and assist [...] in the resident's/fellow's note. * Dolores Kam [facility] - 06/09/2019 11:31 AM CDT Pharmacist Admission Medication Reconciliation The clinical pharmacy intern has completed a medication review with the patient/caregiver and has made the following edits to the home medication list: *The following medication history was obtained via discussion with RN from [facility]* Medication additions Novolog per sliding scale Buspirone 5mg PO daily x 1 week Duo-Nebs q6h PRN Medication deletions Senna-docusate 8.6-50mg 2 tablets PO BID Medication alterations Added dose/route/frequency for alprazolam Added dose for cholecalciferol Increased losartan from 50mg daily to 100mg daily Home medications - following pharmacist reconciliation Prema Pearce Home Medication Instructions ROMMEL:[id number] Printed on:06/09/19 1129 Medication Information 08 AM [...] inhibitors; Citalopram; and Lisinopril Samia Kam, PharmD, [facility] Clinical Flatwork Folder - Transitions of Care [phone] documented in this encounter H&P Notes * [...] 1-33 Units/kg/hr, Last Rate: 11 Units/kg/hr (06/08/19 3001) Objective Vital Signs: 24hr Min/Max: Temp Min: [...] of consultation. Jenna Peña MD Orthopaedic Surgery PGY-3 For overnight questions, please contact: [phone] (Night Resident) [phone] (Day / Consult Resident) Cosigned by Kaveh Charles MD at 06/16/2019 2:54 PM CDT documented in this encounter Nursing Notes * Negra Lei RN - 06/13/2019 2:20 PM CDT Report given to EMS, patient left via transport. Nothing further. * Negra Lei RN - 06/13/2019 1:32 PM CDT Report given to ARMANI Rausch at [facility]. Patient to be picked up per EMS. [...] than better. She s poke with her hoist mechanic today who recommend she come to the [...] 05/31/2019 ??? Diabetes mellitus type II, controlled (CMS/[facility]) 05/31/2019 ??? Hypertension, essential 05/31/2019 ??? Left [...] 1944 Comment: [facility]F exacerbation and AFib with RVR. Dosing Lasix, metoprolol and aspirin now By: Beau Eldridge MD Time: 06/07 2236 Comment: Patient continues to be in atrial fibrillation with RVR, will give additional 5 mg of metoprolol. Heparin drip started, will plan for repeat troponin, signed out to [facility]. By: Dwayne Jacobsen MD Time: 06/08 2311 [...] safe environment with support from family Goal: hospice manager to follow for d/c planning and referrals as needed. F/U Appointment: To be made after rehab Referral: Social work following for d/c planning to return to facility ADD: 06/12 hospice manager will continue to follow and assist [...] 06/13/19 0700 - 06/14/19 0659 Total Total [phone] 5198-3427 2101-6591 Total 1544-4002 9940-7101 1459-1368 Total Intake (ml) 1291.9 280 -- 220 60 280 -- -- -- -- Output (ml) 1775 1700 550 414 787 3250 400 -- -- 400 Net (ml) -483.1 [...] per pt. report no use of DME make ready mechanic -SB -- Level of [place] Independent with ADLs;Independent functional transfers;Independent with ambulation;Independent with homemaking with ambulation -SB -- Lives With Spouse 06/10 (min) assist -SB -- Receives Help From Neighbor;Family time piece repairer assist available -SB -- Driving Yes -SB [...] IND with ADL and IADL and driving make ready mechanic -SB -- ADLS (WDL) X -SB -- [...] Wheeled walker -CR -- -- Level of [place] -- Independent functional transfers;Independent with ADLs;Independent with ambulation -CR -- -- Lives With -- Spouse time piece repairer assistance -CR -- -- Receives Help From [...] discharge summary -CR ---- PT Recommendation/Plan -- Correction Facility -CR -- -- PT Frequency -- 3-5x/wk -CR -- -- Treatment/Interventions -- Balance Training;Bed mobility;Functional activity;Gait training;Therapeutic activity;Therapeutic exercise -CR -- -- PT Evaluation Complete -- Yes -CR -- -- User Montgomery (r) = Recorded By, (t) = Taken By, (c) = Cosigned By Initials Name Effective Dates TR Jackie Faye, MACHINIST SUPERVISOR OUTSIDE 02/14/19 - OSBALDO López, PT 02/14/19 - [...] top arrange d/c. SW submitted updated to [facility] per request. Facilityis not prepared to accept patient today. Per chart review , pt's expected to have a wound vac change tomorrow. Floor SW to make arrangements for pt's return to [facility]. ADD 06/12 * ECIN Note - Dolores [...] per pt. report no use of DME make ready mechanic -SB -- Level of [place] Independent with ADLs;Independent functional transfers;Independent with ambulation;Independent with homemaking with ambulation -SB -- Lives With Spouse 06/10 (min) assist -SB -- Receives Help From Neighbor;Family time piece repairer assist available -SB -- Driving Yes -SB [...] IND with ADL and IADL and driving make ready mechanic -SB -- ADLS (WDL) X -SB -- [...] Wheeled walker -CR -- -- Level of [place] Independent functional transfers;Independent with ADLs;Independent with ambulation -CR -- -- Lives With Spouse time piece repairer assistance -CR -- -- Receives Help From [...] discharge summary -CR -- -- PT Recommendation/Plan Correction Facility -CR -- -- PT Frequency 3-5x/wk [...] 06/10/19 2200 06/10/19 1900 Site Assessment -- Intact;[place] Taya-wound Assessment -- Dry;Intact Unit Type -- [...] 06/12/19 0700 - 06/13/19 0659 Total Total 9015-0636 5049-4560 7670-7086 Total 5134-1931 9914-1378 2881-6608 Total Intake (ml) 1121.1 1291.9 -- 120 160 280 -- -- -- -- Output (ml) 650 1775 700 040 357 2525 200 -- -- 200 Net (ml) 471.1 [...] MICHAEL MICHAEL MICHAEL -- -- Taya-wound Assessment [facility] MICHAEL -- -- Unit Type -- [place] [...] mL 0 mL 06/10/19219906/10/191899 Site Assessment -- Intact;[place] Taya-wound Assessment -- Dry;Intact Unit Type -- [...] Recent Administrations metoprolol (LOPRESSOR) injection 5 mg [[id number]] Ordering Provider: Beau Eldridge MD Status: Completed [...] Cam RN LORazepam (ATIVAN) injection 1 mg [[id number]] Ordering Provider: Pascale Santos MD Status: Completed [...] Leon RN metoprolol (LOPRESSOR) injection 5 mg [[id number]] Ordering Provider: Beau Eldrdige MD Status: Completed (Past End Date/Time) Ordered On: 06/08/191937 Starts/Ends: 06/08/191938 - 06/08/192121 Dose (Remaining/Total): 5 mg (0/1) Route: intravenous Frequency: Once Rate/Duration: -- / 1 Minutes Timestamps Action Dose / Duration Route Other Information 06/08/192120 Given 5 mg 1 Minutes intravenous Performed by: Jo Ann Tompkins RN furosemide (LASIX) 10 mg/mL injection 20 mg [[id number]] Ordering Provider: Beau Eldridge MD Status: Completed (Past End Date/Time) Ordered On: 06/08/191937 Starts/Ends: 06/08/191938 - 06/08/192121 Dose (Remaining/Total): 20 mg (0/1) Route: intravenous Frequency: Once Rate/Duration: -- / 1 Minutes Admin Instructions: Room temperature only Timestamps Action Dose / Duration Route Other Information 06/08/192120 Given 20 mg 1 Minutes intravenous Performed by: Jo Ann Tompkins RN aspirin tablet 325 mg [[id number]] Ordering Provider: Beau Eldridge MD Status: Completed (Past End Date/Time) Ordered On: 06/08/191946 Starts/Ends: 06/08/191947 - 06/08/192120 Dose (Remaining/Total): 325 mg (0/1) Route: oral Frequency: Once Rate/Duration: -- / -- Timestamps Action Dose Route Other Information 06/08/192120 Given 325 mg oral Performed by: Jo Ann Tompkins RN heparin 1,000 unit/mL injection 4,000 Units [[id number]] Ordering Provider: Dwayne Jacobsen MD Status: Completed [...] 25,000 units/250 mL (100 units/mL) infusion (premix) [[id number]] Ordering Provider: David Horn MD Status: Dispensed [...] calcium carbonate (TUMS) chewable tablet 500 mg [[id number]] Ordering Provider: Dwayne Jacobsen MD Status: Completed (Past End Date/Time) Ordered On: 06/08/192137 Starts/Ends: 06/08/192138 - 06/08/192302 Dose (Remaining/Total): 200 mg of elemental calcium (0/) Route: oral Frequency: Once Rate/Duration: -- / -- Timestamps Action Dose Route Other Information 06/08/192302 Given 500 mg oral Performed by: Pam Gill RN cholecalciferol (VITAMIN D-3) capsule 1,000 Units [[id number]] Ordering Provider: Berny Lobo MD Status: Dispensed Ordered On: 06/09/19427 Start: 06/09/19 09 Dose (Remaining/Total): 1,000 Units (--/--) Route: oral Frequency: Daily Rate/Duration: -- / -- Timestamps Action Dose Route Other Information 06/12/19 0850 Given 1,000 Units oral Performed by: Stas Robbins RN DULoxetine DR (CYMBALTA) extended release capsule 60 mg [[id number]] Ordering Provider: Berny Lobo MD Status: Dispensed [...] Robbins RN levothyroxine (SYNTHROID) tablet 25 mcg [[id number]] Ordering Provider: Berny Lobo MD Status: Dispensed [...] DR (PROTONIX) extended release tablet 40 mg [[id number]] Ordering Provider: Berny Lobo MD Status: Dispensed Ordered On: 06/09/19427 Start: 06/09/19 09 Dose (Remaining/Total): 40 mg (--/--) Route: oral Frequency: Daily Rate/Duration: -- / -- Admin Instructions: Do not crush, chew, cut, dissolve, open or otherwise manipulate tablet/capsule. Timestamps Action Dose Route Other Information 06/12/19851 Given 40 mg oral Performed by: Stas Robbins RN sodium chloride 0.9% flush 0.5-20 mL [[id number]] Ordering Provider: Ravi Otero MD Status: Verified Ordered On: 06/09/1958 Start: 06/09/19129 Dose (Remaining/Total): 0.5-20 mL (--/--) Route: intra-catheter Frequency: Every 8 hours scheduled Rate/Duration: -- / -- Admin Instructions: Flush volume based on line type and size. Timestamps Action Dose Route Other Information 06/11/192050 Given 10 mL intra-catheter Performed by: Ashley Beatty RN sodium chloride 0.9% flush 0.5-20 mL [[id number]] Ordering Provider: Ravi Otero MD Status: Verified Ordered On: 06/09/1958 Start: 06/09/1958 Dose (Remaining/Total): 0.5-20 mL (--/--) Route: intra-catheter Frequency: As needed Rate/Duration: -- / -- Admin Instructions: Flush volume based on line type and size. Flush before and after each use. (No admins recorded for this medication) polyethylene glycol (MIRALAX) packet 17 g [[id number]] Ordering Provider: Ravi Otero MD Status: Dispensed Ordered On: 06/09/1958 Start: 06/09/19899 Dose (Remaining/Total): 17 g (--/--) Route: oral Frequency: Daily Rate/Duration: -- / -- Timestamps Action Dose Route Other Information 06/12/19 0852 Given 17 g oral Performed by: Stas Robbins RN bisacodyl EC (DULCOLAX EC) tablet 10 mg [[id number]] Ordering Provider: Ravi Otero MD Status: Verified Ordered On: 06/09/1958 Start: 06/09/1958 Dose (Remaining/Total): 10 mg (--/--) Route: oral Frequency: Daily PRN Rate/Duration: -- / -- Admin Instructions: Do not crush, chew, cut, dissolve, open or otherwise manipulate tablet/capsule. (No admins recorded for this medication) bisacodyL (DULCOLAX) suppository 10 mg [[id number]] Ordering Provider: Ravi Otero MD Status: Verified Ordered On: 06/09/1958 Start: 06/09/1958 Dose (Remaining/Total): 10 mg (--/--) Route: rectal Frequency: Daily PRN Rate/Duration: -- / -- (No admins recorded for this medication) dextrose (GLUTOSE) 40 % gel 15 g [[id number]] Ordering Provider: Ravi Otero MD Status: Verified [...] Call MD for each episode of hypoglycemia. REGULATORY COMPLIANCE MANAGER STATES GLUTOSE-15 CONTAINS GLUCOSE 40% W/W (50% W/V) (No admins recorded for this medication) dextrose (D10W) 10% bolus 250 mL [[id number]] Ordering Provider: Ravi Otero MD Status: Verified Ordered On: 06/09/1958 Start: 06/09/1958 Dose (Remaining/Total): 250 mL (--/--) Route: intravenous Frequency: Every 15 min PRN Rate/Duration: 1,000 mL/hr / 15 Minutes Admin Instructions: After treatment for hypoglycemia, recheck BG followed by treatment every 15 minutes until the BG is greater than 100 mg/dL. Then check BG 1 hour post treatment. If BG is less [id number] mg/dL, repeat Q15 minute BG checks and treatment. Call MD for each episode of hypoglycemia. (No admins recorded for this medication) glucagon injection 1 mg [[id number]] Ordering Provider: Ravi Otero MD Status: Verified [...] medication) insulin lispro (HumaLOG) injection 1-2 Units [[id number]] Ordering Provider: Ravi Otero MD Status: Verified [...] this medication) metoprolol (LOPRESSOR) injection 5 mg [[id number]] Ordering Provider: Dwayne Jacobsen MD Status: Completed [...] furosemide (LASIX) 10 mg/mL injection 40 mg [[id number]] Ordering Provider: Berny Lobo MD Status: Completed [...] RN magnesium oxide (MAG-OX) tablet 800 mg [[id number]] Ordering Provider: Ravi Otero MD Status: Completed [...] Zhu RN losartan (COZAAR) tablet 50 mg [[id number]] Ordering Provider: Ravi Otero MD Status: Dispensed Ordered On: 06/09/19328 Start: 06/09/19899 Dose (Remaining/Total): 50 mg (--/--) Route: oral Frequency: Daily Rate/Duration: -- / -- Timestamps Action Dose Route Other Information 06/12/19850 Given 50 mg oral Performed by: Stas Robbins RN aspirin chewable tablet 81 mg [[id number]] Ordering Provider: Ravi Otero MD Status: Dispensed Ordered On: 06/09/19332 Start: 06/09/19899 Dose (Remaining/Total): 81 mg (--/--) Route: oral Frequency: Daily Rate/Duration: -- / -- Timestamps Action Dose Route Other Information 06/12/19851 Given 81 mg oral Performed by: Stas Robbins RN rosuvastatin (CRESTOR) tablet 20 mg [[id number]] Ordering Provider: Ravi Otero MD Status: Dispensed Ordered On: 06/09/19334 Start: 06/09/19899 Dose (Remaining/Total): 20 mg (--/--) Route: oral Frequency: Daily Rate/Duration: -- / -- Timestamps Action Dose Route Other Information 06/12/19850 Given 20 mg oral Performed by: Stas Robbins RN furosemide (LASIX) 10 mg/mL injection 20 mg [[id number]] Ordering Provider: Ravi Otero MD Status: Dispensed [...] Robbins RN amiodarone (PACERONE) tablet 400 mg [[id number]] Ordering Provider: David Horn MD Status: Dispensed Ordered On: 06/09/19 1306 Starts/Ends: 06/09/19 1600 - 06/16/19 2359 Dose (Remaining/Total): 400 mg () Route: oral Frequency: 3 times daily Rate/Duration: -- / -- Timestamps Action Dose Route Other Information 06/12/19 0851 Given 400 mg oral Performed by: Stas Robbins RN carvediloL (COREG) tablet 6.25 mg [[id number]] Ordering Provider: David Horn MD Status: Dispensed Ordered On: 06/09/19 1308 Start: 06/09/19 1800 Dose (Remaining/Total): 6.25 mg (--/--) Route: oral Frequency: 2 times daily with meals (bkfst, dinner) Rate/Duration: -- / -- Timestamps Action Dose Route Other Information 06/12/19 0851 Given 6.25 mg oral Performed by: Stas Robbins RN ioversoL (OPTIRAY 350) syringe syringe 100 mL [[id number]] Ordering Provider: David Horn MD Status: Completed [...] ER (KLOR-CON) extended release tablet 30 mEq [[id number]] Ordering Provider: Ravi Otero MD Status: Completed [...] RN magnesium oxide (MAG-OX) tablet 400 mg [[id number]] Ordering Provider: Ravi Otero MD Status: Completed [...] Lee RN apixaban (ELIQUIS) tablet 10 mg [[id number]] Ordering Provider: David Horn MD Status: Dispensed [...] Robbins RN apixaban (ELIQUIS) tablet 5 mg [[id number]] Ordering Provider: David Horn MD Status: Verified Ordered On: 06/10/191457 Start: 06/17/192099 Dose (Remaining/Total): 5 mg (--/--) Route: oral Frequency: 2 times daily Rate/Duration: -- / -- Admin Instructions: Nurse to discontinue heparin infusion order and associated bolus at first administration of apixaban using ???order condition met??? order source (No admins recorded for this medication) acetaminophen (TYLENOL) tablet 650 mg [[id number]] Ordering Provider: David Horn MD Status: Dispensed Ordered On: 06/10/191551 Start: 03/27/20 1552 Dose (Remaining/Total): 650 mg (--/--) Route: oral Frequency: Every 6 hours PRN Rate/Duration: -- / -- Timestamps Action Dose Route Other Information 06/12/19520 Given 650 mg oral Performed by: Ashley Beatty RN cyclobenzaprine (FLEXERIL) tablet 5 mg [[id number]] Ordering Provider: Morgan Herrera MD Status: Verified Ordered On: 06/11/191105 Start: 06/11/191105 Dose (Remaining/Total): 5 mg (--/--) Route: oral Frequency: 3 times daily PRN Rate/Duration: -- / -- (No admins recorded for this medication) potassium chloride ER (KLOR-CON) extended release tablet 40 mEq [[id number]] Ordering Provider: Ravi Otero MD Status: Completed [...] RN magnesium oxide (MAG-OX) tablet 400 mg [[id number]] Ordering Provider: Ravi Otero MD Status: Completed [...] Beatty RN oxyCODONE (ROXICODONE) tablet 5 mg [[id number]] Ordering Provider: David Horn MD Status: Verified Ordered On: 06/12/19915 Start: 06/12/19915 Dose (Remaining/Total): 5 mg (--/--) Route: oral Frequency: Every 4 hours PRN Rate/Duration: -- / -- (No admins recorded for this medication) amiodarone (PACERONE) tablet 200 mg [[id number]] Ordering Provider: David Horn MD Status: Sent [...] for SNF. Sw sent updated records to [facility] for possible readmission back to their facility. Kailey Dalton WATER TANKER DRIVER, Weekend Education Consultant For emergency needs from 4:31 p.m. - 7:59 a.m., please call the ED Education Consultant . For weekend needs from 8:00 a.m. [...] to 2.97. continued ASA, statin. Recommending outpatient [facility]. ?? #Acute on chronic HFrEF??- symptoms of [...] the patient's medical record. Sincerely, Anna RuggieroYumiko [facility] Information Management * Plan of Care - Maia Lee RN - 06/10/2019 2:55 AM CDT Problem: Activity: Goal: Mobility will improve 06/10/2019 025 by Maia Lee RN Outcome: Progressing 06/10/2019 0246 by Maia Lee RN Outcome: Progressing Problem: Lack of Knowledge: Goal: Understanding of ways to prevent future skin breakdown will improve 06/10/2019 025 by Maia eLe RN Outcome: Progressing 06/10/2019 024 by Maia [...] complete. Patient not available at this time. hospice manager will continue to follow and will interview at later time. [phone] * Plan of Care - Sasha Partida [...] CDT Pre-Arrival Note Pt called in by hoist mechanic office. Pt coming from rehab, s/p knee [...] TROPONIN I Routine 06/08/2019 10:55 PM CDT [place] [facility] ILL/INJURED PATIENT INIT 30-74 MIN [...] Glucose, POC 170 70 - 199 mg/dL [facility] Blood specimen (specimen) 06/13/2019 12:03 PM CDT 06/13/2019 12:03 PM CDT Ned Urbina MD LAB POCT ORDERABLES - [place] CE Final Result [facility] Department [place] [address] * POCT glucose (06/13/2019 7:55 AM CDT) Glucose, POC 164 70 - 199 mg/dL [facility] Blood specimen (specimen) 06/13/2019 7:55 AM CDT 06/13/2019 7:55 AM CDT us Ned Urbina MD LAB POCT ORDERABLES - [place] CE Final Result [facility] Department [place] [address] * Differential, auto (06/12/2019 9:07 PM CDT) Neutrophil abs 4.2 1.7 - 6.5 K/cumm [facility] Imm gran abs 0.0 0.0 - 0.1 K/cumm [facility] Lymphocyte abs 1.1 0.8 - 3.3 K/cumm [facility] Monocyte abs 0.5 0.2 - 0.8 K/cumm [facility] Eosinophil abs 0.1 0.0 - 0.5 K/cumm [facility] Basophil abs 0.0 0.0 - 0.1 K/cumm [facility] Neutrophil pct 71.5 % [facility] Comment: Interpretive Data Percent cell count reference ranges are not reported, since discordance with absolute values may lead to misinterpretation of CBC data. Current Interpretive Data was last revised on 2017. Imm gran pct 0.3 % [facility] Comment: Interpretive Data Percent cell count reference ranges are not reported, since discordance with absolute values may lead to misinterpretation of CBC data. Current Interpretive Data was last revised on 2017. Lymphocyte pct 18.2 % [facility] Comment: Interpretive Data Percent cell count reference ranges are not reported, since discordance with absolute values may lead to misinterpretation of CBC data. Current Interpretive Data was last revised on 2017. Monocyte pct 7.8 % [facility] Comment: Interpretive Data Percent cell count reference ranges are not reported, since discordance with absolute values may lead to misinterpretation of CBC data. Current Interpretive Data was last revised on 2017. Eosinophil pct 1.9 % [facility] Comment: Interpretive Data Percent cell count reference ranges are not reported, since discordance with absolute values may lead to misinterpretation of CBC data. Current Interpretive Data was last revised on 2017. Basophil pct 0.3 % [facility] Comment: Interpretive Data Percent cell count reference ranges are not reported, since discordance with absolute values may lead to misinterpretation of CBC data. Current Interpretive Data was last revised on 2017. Blood specimen (specimen) 06/12/2019 9:07 PM CDT 06/12/2019 10:32 PM CDT Ned Urbina MD LAB BLOOD ORDERABLES Final Result [facility] Department [place] [address] * (ABNORMAL) CBC with auto differential (06/12/2019 9:07 PM CDT) Pathologist [facility] WBC 5.9 3.8 - 9.9 K/cumm [facility] Hgb 8.4(L) 11.9 - 15.5 g/dL [facility] Hct 28.0(L) 35.6 - 45.5 % [facility] Plt 283 150 - 400 K/cumm [facility] MPV 10.5 9.1 - 12.3 fL [facility] RBC 2.79(L) 3.90 - 5.20 M/cumm [facility] MCV 100.4(H) 81.3 - 96.4 fL [facility] MCH 30.1 27.1 - 33.3 pg [facility] MCHC 30.0(L) 32.3 - 35.7 g/dL [facility] RDW CV 16.1(H) 11.1 - 14.9 % [facility] RDW SD 59.7(H) 35.7 - 48.1 fL [facility] NRBC abs 0.00 0.00 - 0.01 K/cumm [facility] Blood specimen (specimen) 06/12/2019 9:07 PM CDT 06/12/2019 10:32 PM CDT us Ned Urbina MD LAB BLOOD ORDERABLES Final Result Performing Organization Address City/[facility] Co de Phone Number [facility] Department [place] [address] * Phosphorus (06/12/2019 9:07 PM CDT) Pathologist [facility] Phosphorus, pl 2.4 2.3 - 4.5 mg/dL [facility] Blood specimen (specimen) 06/12/2019 9:07 PM CDT 06/12/2019 10:32 PM CDT Ned Urbina MD LAB BLOOD ORDERABLES Final Result [facility] Department [place] [address] * Magnesium (06/12/2019 9:07 PM CDT) Pathologist [facility] Magnesium 1.9 1.4 - 2.5 mg/dL [facility] Blood specimen (specimen) 06/12/2019 9:07 PM CDT 06/12/2019 10:32 PM CDT Ned Urbina MD LAB BLOOD ORDERABLES Final Result Performing Organization Address [facility] Co de Phone Number [facility] [place] [address] * Basic metabolic panel (06/12/2019 9:07 PM CDT) Pathologist [facility] Sodium 135 135 - 145 mmol/L [facility] Potassium, pl 4.2 3.3 - 4.9 mmol/L [facility] Chloride 99 97 - 110 mmol/L [facility] CO2 29 22 - 32 mmol/L [facility] Anion gap 7 2 - 15 mmol/L [facility] BUN 19 8 - 25 mg/dL [facility] Creatinine 0.69 0.60 - 1.10 mg/dL [facility] Glucose 174 70 - 199 mg/dL [facility] Comment: Interpretive Data Fasting glucose >/= [...] 2017. Calcium 8.8 8.5 - 10.3 mg/dL [facility] Blood specimen (specimen) 06/12/2019 9:07 PM CDT 06/12/2019 10:32 PM CDT us Ned Urbina MD LAB BLOOD ORDERABLES Final Result Performing Organization Address [facility] Co de Phone Number [facility] [place] [address] * POCT glucose (06/12/2019 5:03 PM CDT) Glucose, POC 141 70 - 199 mg/dL [facility] Blood specimen (specimen) 06/12/2019 5:03 PM CDT 06/12/2019 5:03 PM CDT us Ned Urbina MD LAB POCT ORDERABLES - [place] CE Final Result Performing Organization Address [facility] de Phone Number [facility] [place] [address] * POCT glucose (06/12/2019 11:54 AM CDT) Glucose, POC 147 70 - 199 mg/dL [facility] Blood specimen (specimen) 06/12/2019 11:54 AM CDT 06/12/2019 11:54 AM CDT us Ned Urbina MD LAB POCT ORDERABLES - [place] CE Final Result Performing Organization Address [facility] Co de Phone Number [facility] [place] [address] * POCT glucose (06/12/2019 7:56 AM CDT) Glucose, POC 152 70 - 199 mg/dL [facility] Blood specimen (specimen) 06/12/2019 7:56 AM CDT 06/12/2019 7:56 AM CDT us Ned Urbina MD LAB POCT ORDERABLES - [place] CE Final Result [facility] Department [place] [address] * Differential, auto (06/12/2019 4:51 AM CDT) Neutrophil abs 3.4 1.7 - 6.5 K/cumm [facility] Imm gran abs 0.0 0.0 - 0.1 K/cumm [facility] Lymphocyte abs 0.8 0.8 - 3.3 K/cumm [facility] Monocyte abs 0.4 0.2 - 0.8 K/cumm [facility] Eosinophil abs 0.1 0.0 - 0.5 K/cumm [facility] Basophil abs 0.0 0.0 - 0.1 K/cumm [facility] Neutrophil pct 71.9 % [facility] Comment: Interpretive Data Percent cell count reference ranges are not reported, since discordance with absolute values may lead to misinterpretation of CBC data. Current Interpretive Data was last revised on 2017. Imm gran pct 0.6 % [facility] Comment: Interpretive Data Percent cell count reference ranges are not reported, since discordance with absolute values may lead to misinterpretation of CBC data. Current Interpretive Data was last revised on 2017. Lymphocyte pct 17.6 % [facility] Comment: Interpretive Data Percent cell count reference ranges are not reported, since discordance with absolute values may lead to misinterpretation of CBC data. Current Interpretive Data was last revised on 2017. Monocyte pct 8.0 % [facility] Comment: Interpretive Data Percent cell count reference ranges are not reported, since discordance with absolute values may lead to misinterpretation of CBC data. Current Interpretive Data was last revised on 2017. Eosinophil pct 1.7 % [facility] Comment: Interpretive Data Percent cell count reference ranges are not reported, since discordance with absolute values may lead to misinterpretation of CBC data. Current Interpretive Data was last revised on 2017. Basophil pct 0.2 % [facility] Comment: Interpretive Data Percent cell count reference ranges are not reported, since discordance with absolute values may lead to misinterpretation of CBC data. Current Interpretive Data was last revised on 2017. Blood specimen (specimen) 06/12/2019 4:51 AM CDT 06/12/2019 5:23 AM CDT Ned Urbina MD LAB BLOOD ORDERABLES Final Result Performing Organization Address [facility] de Phone Number [facility] [place] [address] * (ABNORMAL) CBC with auto differential (06/12/2019 4:51 AM CDT) WBC 4.8 3.8 - 9.9 K/cumm [facility] Hgb 8.0(L) 11.9 - 15.5 g/dL [facility] Hct 26.7(L) 35.6 - 45.5 % [facility] Plt 250 150 - 400 K/cumm [facility] MPV 10.3 9.1 - 12.3 fL [facility] RBC 2.76(L) 3.90 - 5.20 M/cumm [facility] MCV 96.7(H) 81.3 - 96.4 fL [facility] MCH 29.0 27.1 - 33.3 pg [facility] MCHC 30.0(L) 32.3 - 35.7 g/dL [facility] RDW CV 16.2(H) 11.1 - 14.9 % [facility] RDW SD 56.8(H) 35.7 - 48.1 fL [facility] NRBC abs 0.00 0.00 - 0.01 K/cumm [facility] Blood specimen (specimen) 06/12/2019 4:51 AM CDT 06/12/2019 5:23 AM CDT us Ned Urbina MD LAB BLOOD ORDERABLES Final Result Performing Organization Address [facility] Co de Phone Number [facility] [place] [address] * (ABNORMAL) Protime-INR (06/12/2019 4:51 AM CDT) PT 50.2(H) 8.6 - 13.0 sec [facility] INR 4.5(H) 0.8 - 1.2 [facility] Comment: Interpretive data Oral anticoagulant therapeutic [...] BLOOD ORDERABLES Final Result Performing Organization Address City/[facility]/ZIP Co de Phone Number [facility] [place] [address] * Critical Result Callback Hematology (06/12/2019 1:30 AM CDT) Date Notified [id number] [facility] Time Notified 322 [facility] TestName INR [facility] Called/Read Back Kevin Alcala [facility] Credentials RN [facility] Called By ANSHUL [facility] Blood specimen (specimen) 06/12/2019 1:30 AM CDT 06/12/2019 3:03 AM CDT us Ned Urbina MD LAB BLOOD ORDERABLES Final Result [facility] [place] [address] * Differential, auto (06/12/2019 1:30 AM CDT) Neutrophil abs 3.6 1.7 - 6.5 K/cumm [facility] Imm gran abs 0.0 0.0 - 0.1 K/cumm [facility] Lymphocyte abs 1.0 0.8 - 3.3 K/cumm [facility] Monocyte abs 0.4 0.2 - 0.8 K/cumm [facility] Eosinophil abs 0.1 0.0 - 0.5 K/cumm [facility] Basophil abs 0.0 0.0 - 0.1 K/cumm [facility] Neutrophil pct 70.2 % [facility] Comment: Interpretive Data Percent cell count reference ranges are not reported, since discordance with absolute values may lead to misinterpretation of CBC data. Current Interpretive Data was last revised on 2017. Imm gran pct 0.4 % [facility] Comment: Interpretive Data Percent cell count reference ranges are not reported, since discordance with absolute values may lead to misinterpretation of CBC data. Current Interpretive Data was last revised on 2017. Lymphocyte pct 19.5 % [facility] Comment: Interpretive Data Percent cell count reference ranges are not reported, since discordance with absolute values may lead to misinterpretation of CBC data. Current Interpretive Data was last revised on 2017. Monocyte pct 7.4 % [facility] Comment: Interpretive Data Percent cell count reference ranges are not reported, since discordance with absolute values may lead to misinterpretation of CBC data. Current Interpretive Data was last revised on 2017. Eosinophil pct 2.1 % [facility] Comment: Interpretive Data Percent cell count reference ranges are not reported, since discordance with absolute values may lead to misinterpretation of CBC data. Current Interpretive Data was last revised on 2017. Basophil pct 0.4 % [facility] Comment: Interpretive Data Percent cell count reference ranges are not reported, since discordance with absolute values may lead to misinterpretation of CBC data. Current Interpretive Data was last revised on 2017. Blood specimen (specimen) 06/12/2019 1:30 AM CDT 06/12/2019 2:45 AM CDT us Ned Urbina MD LAB BLOOD ORDERABLES Final Result [facility] Department [place] [address] * (ABNORMAL) Protime-INR (06/12/2019 1:30 AM CDT) [facility] PT 56.6(H) 8.6 - 13.0 sec [facility] INR 5.1(C) 0.8 - 1.2 [facility] Comment: Interpretive data Oral anticoagulant therapeutic ranges: Venous thromboembolism prophylaxis or treatment: 2.0-3.0 CARDIOLOGY Standard range: 2.0-3.0 High-intensity range: 2.5-3.5 Refer to indication-specific guidelines for appropriate target ranges for prosthetic heart valve replacement. Current interpretive data was last revised on 2019. Blood specimen (specimen) 06/12/2019 1:30 AM CDT 06/12/2019 2:47 AM CDT Ned Urbina MD LAB BLOOD ORDERABLES Final Result [facility] Department [place] [address] * (ABNORMAL) CBC with auto differential (06/12/2019 1:30 AM CDT) [facility] WBC 5.1 3.8 - 9.9 K/cumm [facility] Hgb 7.7(L) 11.9 - 15.5 g/dL [facility] Hct 26.1(L) 35.6 - 45.5 % [facility] Plt 254 150 - 400 K/cumm [facility] MPV 10.4 9.1 - 12.3 fL [facility] RBC 2.65(L) 3.90 - 5.20 M/cumm [facility] MCV 98.5(H) 81.3 - 96.4 fL [facility] MCH 29.1 27.1 - 33.3 pg [facility] MCHC 29.5(L) 32.3 - 35.7 g/dL [facility] RDW CV 16.5(H) 11.1 - 14.9 % [facility] RDW SD 59.7(H) 35.7 - 48.1 fL [facility] NRBC abs 0.00 0.00 - 0.01 K/cumm [facility] Blood specimen (specimen) 06/12/2019 1:30 AM CDT 06/12/2019 2:45 AM CDT us Ned Urbina MD LAB BLOOD ORDERABLES Final Result Performing Organization Address City/[facility] Co de Phone Number [facility] [place] [address] * Phosphorus (06/12/2019 1:30 AM CDT) Pathologist [facility] Phosphorus, pl 2.9 2.3 - 4.5 mg/dL [facility] Blood specimen (specimen) 06/12/2019 1:30 AM CDT 06/12/2019 2:45 AM CDT us Ned Urbina MD LAB BLOOD ORDERABLES Final Result Performing Organization Address City/[facility] Co de Phone Number [facility] [place] [address] * Magnesium (06/12/2019 1:30 AM CDT) [facility] Magnesium 1.9 1.4 - 2.5 mg/dL [facility] Blood specimen (specimen) 06/12/2019 1:30 AM CDT 06/12/2019 2:45 AM CDT us Ned Urbina MD LAB BLOOD ORDERABLES Final Result Performing Organization Address City/[facility] [place] [address] * Basic metabolic panel (06/12/2019 1:30 AM CDT) [facility] Sodium 137 135 - 145 mmol/L [facility] Potassium, pl 3.7 3.3 - 4.9 mmol/L [facility] Chloride 103 97 - 110 mmol/L [facility] CO2 29 22 - 32 mmol/L [facility] Anion gap 5 2 - 15 mmol/L [facility] BUN 19 8 - 25 mg/dL [facility] Creatinine 0.61 0.60 - 1.10 mg/dL [facility] Glucose 139 70 - 199 mg/dL [facility] Comment: Interpretive Data Fasting glucose >/= [...] 2017. Calcium 8.8 8.5 - 10.3 mg/dL [facility] Blood specimen (specimen) 06/12/2019 1:30 AM CDT 06/12/2019 2:45 AM CDT us Ned Urbina MD LAB BLOOD ORDERABLES Final Result [facility] [place] [address] * POCT glucose (06/11/2019 5:33 PM CDT) Glucose, POC 136 70 - 199 mg/dL [facility] Blood specimen (specimen) 06/11/2019 5:33 PM CDT 06/11/2019 5:33 PM CDT us Ned Urbina MD LAB POCT ORDERABLES - [place] CE Final Result [facility] [place] [address] * POCT glucose (06/11/2019 11:27 AM CDT) Glucose, POC 186 70 - 199 mg/dL [facility] Blood specimen (specimen) 06/11/2019 11:27 AM CDT 06/11/2019 11:27 AM CDT us Ned Urbina MD LAB POCT ORDERABLES - [place] CE Final Result Performing Organization Address City/[facility] Co de Phone Number [facility] Department [place] [address] * POCT glucose (06/11/2019 8:07 AM CDT) Pathologist [facility] Glucose, POC 157 70 - 199 mg/dL [facility] Blood specimen (specimen) 06/11/2019 8:07 AM CDT 06/11/2019 8:07 AM CDT Ned Urbina MD LAB POCT ORDERABLES - [place] CE Final Result Performing Organization Address [facility] de Phone Number [facility] [place] [address] * Differential, auto (06/11/2019 12:45 AM CDT) [facility] Neutrophil abs 4.6 1.7 - 6.5 K/cumm [facility] Imm gran abs 0.0 0.0 - 0.1 K/cumm [facility] Lymphocyte abs 1.4 0.8 - 3.3 K/cumm [facility] Monocyte abs 0.6 0.2 - 0.8 K/cumm [facility] Eosinophil abs 0.1 0.0 - 0.5 K/cumm [facility] Basophil abs 0.0 0.0 - 0.1 K/cumm [facility] Neutrophil pct 68.3 % [facility] Comment: Interpretive Data Percent cell count reference ranges are not reported, since discordance with absolute values may lead to misinterpretation of CBC data. Current Interpretive Data was last revised on 2017. Imm gran pct 0.3 % [facility] Comment: Interpretive Data Percent cell count reference ranges are not reported, since discordance with absolute values may lead to misinterpretation of CBC data. Current Interpretive Data was last revised on 2017. Lymphocyte pct 21.3 % [facility] Comment: Interpretive Data Percent cell count reference ranges are not reported, since discordance with absolute values may lead to misinterpretation of CBC data. Current Interpretive Data was last revised on 2017. Monocyte pct 8.4 % [facility] Comment: Interpretive Data Percent cell count reference ranges are not reported, since discordance with absolute values may lead to misinterpretation of CBC data. Current Interpretive Data was last revised on 2017. Eosinophil pct 1.3 % [facility] Comment: Interpretive Data Percent cell count reference ranges are not reported, since discordance with absolute values may lead to misinterpretation of CBC data. Current Interpretive Data was last revised on 2017. Basophil pct 0.4 % [facility] Comment: Interpretive Data Percent cell count reference ranges are not reported, since discordance with absolute values may lead to misinterpretation of CBC data. Current Interpretive Data was last revised on 2017. Blood specimen (specimen) 06/11/2019 12:45 AM CDT 06/11/2019 12:47 AM CDT us Ned Urbina MD LAB BLOOD ORDERABLES Final Result Performing Organization Address City/[facility]/ZIP Co de Phone Number [facility] Department [place] [address] * (ABNORMAL) CRP (acute phase) (06/11/2019 12:45 AM CDT) CRP 54.8(H) <=10.0 mg/L [facility] Blood specimen (specimen) 06/11/2019 12:45 AM CDT 06/11/2019 12:47 AM CDT Ned Urbina MD LAB BLOOD ORDERABLES Final Result [facility] Department [place] [address] * (ABNORMAL) Protime-INR (06/11/2019 12:45 AM CDT) [facility] PT 24.3(H) 8.6 - 13.0 sec [facility] INR 2.2(H) 0.8 - 1.2 [facility] Comment: Interpretive data Oral anticoagulant therapeutic ranges: Venous thromboembolism prophylaxis or treatment: 2.0-3.0 CARDIOLOGY Standard range: 2.0-3.0 High-intensity range: 2.5-3.5 Refer to indication-specific guidelines for appropriate target ranges for prosthetic heart valve replacement. Current interpretive data was last revised on 2019. Blood specimen (specimen) 06/11/2019 12:45 AM CDT 06/11/2019 12:49 AM CDT Ned Urbina MD LAB BLOOD ORDERABLES Final Result [facility] Department [place] [address] * (ABNORMAL) CBC with auto differential (06/11/2019 12:45 AM CDT) [facility] WBC 6.8 3.8 - 9.9 K/cumm [facility] Hgb 8.5(L) 11.9 - 15.5 g/dL [facility] Hct 29.0(L) 35.6 - 45.5 % [facility] Plt 275 150 - 400 K/cumm [facility] MPV 10.6 9.1 - 12.3 fL [facility] RBC 2.92(L) 3.90 - 5.20 M/cumm [facility] MCV 99.3(H) 81.3 - 96.4 fL [facility] MCH 29.1 27.1 - 33.3 pg [facility] MCHC 29.3(L) 32.3 - 35.7 g/dL [facility] RDW CV 16.4(H) 11.1 - 14.9 % [facility] RDW SD 59.5(H) 35.7 - 48.1 fL [facility] NRBC abs 0.02(H) 0.00 - 0.01 K/cumm [facility] Blood specimen (specimen) 06/11/2019 12:45 AM CDT 06/11/2019 12:47 AM CDT Ned Urbina MD LAB BLOOD ORDERABLES Final Result Performing Organization Address City/[facility] Co de Phone Number [facility] [place] [address] * Phosphorus (06/11/2019 12:45 AM CDT) Pathologist [facility] Phosphorus, pl 2.5 2.3 - 4.5 mg/dL [facility] Blood specimen (specimen) 06/11/2019 12:45 AM CDT 06/11/2019 12:47 AM CDT us Ned Urbina MD LAB BLOOD ORDERABLES Final Result Performing Organization Address [facility] de Phone Number [facility] [place] [address] * Magnesium (06/11/2019 12:45 AM CDT) [facility] Magnesium 1.8 1.4 - 2.5 mg/dL [facility] Blood specimen (specimen) 06/11/2019 12:45 AM CDT 06/11/2019 12:47 AM CDT Ned Urbina MD LAB BLOOD ORDERABLES Final Result Performing Organization Address [facility] [place] [address] * (ABNORMAL) Basic metabolic panel (06/11/2019 12:45 AM CDT) Sodium 134(L) 135 - 145 mmol/L [facility] Potassium, pl 3.9 3.3 - 4.9 mmol/L [facility] Chloride 100 97 - 110 mmol/L [facility] CO2 25 22 - 32 mmol/L [facility] Anion gap 9 2 - 15 mmol/L [facility] BUN 18 8 - 25 mg/dL [facility] Creatinine 0.60 0.60 - 1.10 mg/dL [facility] Glucose 154 70 - 199 mg/dL [facility] Comment: Interpretive Data Fasting glucose >/= [...] 2017. Calcium 8.8 8.5 - 10.3 mg/dL [facility] Blood specimen (specimen) 06/11/2019 12:45 AM CDT 06/11/2019 12:47 AM CDT us Ned Urbina MD LAB BLOOD ORDERABLES Final Result [facility] [place] [address] * POCT glucose (06/10/2019 8:11 PM CDT) [facility] Signature Glucose, POC 174 70 - 199 mg/dL [facility] Blood specimen (specimen) 06/10/2019 8:11 PM CDT 06/10/2019 8:11 PM CDT us Ned Urbina MD LAB POCT ORDERABLES - [place] CE Final Result Performing Organization Address City/[facility]/ZIP Co de Phone Number [facility] Department [place] [address] * POCT glucose (06/10/2019 5:15 PM CDT) Glucose, POC 150 70 - 199 mg/dL [facility] Blood specimen (specimen) 06/10/2019 5:15 PM CDT 06/10/2019 5:15 PM CDT us Ned Urbina MD LAB POCT ORDERABLES - [place] CE Final Result Performing Organization Address [facility] Co de Phone Number [facility] Department [place] [address] * (ABNORMAL) Erythrocyte sedimentation rate (06/10/2019 4:40 PM CDT) Pathologist [facility] Erythrocyte sedimentation rate 36(H) 1 - 30 mm/hr [facility] Blood specimen (specimen) 06/10/2019 4:40 PM CDT 06/10/2019 5:50 PM CDT us Jenna Peña MD LAB BLOOD ORDERABLES Final Resul t Performing Organization Address [facility] de Phone Number [facility] Department [place] [address] * XR Knee Left 1 or 2 [...] Glucose, POC 146 70 - 199 mg/dL [facility] Blood specimen (specimen) 06/10/2019 11:59 AM CDT 06/10/2019 11:59 AM CDT Ned Urbina MD LAB POCT ORDERABLES - [place] CE Final Result Performing Organization Address [facility] Co de Phone Number [facility] [employer] [place] [address] * Folate (06/10/2019 11:12 AM CDT) Folic acid 10.3 >=5.0 ng/mL [facility] Blood specimen (specimen) 06/10/2019 11:12 AM CDT 06/10/2019 1:24 PM CDT David Horn MD LAB BLOOD ORDERABLES Sri l Result Performing Organization Address [facility] Co de Phone Number [facility] [address] * POCT glucose (06/10/2019 7:46 AM CDT) Glucose, POC 156 70 - 199 mg/dL [facility] Blood specimen (specimen) 06/10/2019 7:46 AM CDT 06/10/2019 7:46 AM CDT us Ned Urbina MD LAB POCT ORDERABLES - [place] [address] * (ABNORMAL) CRP (acute phase) (06/10/2019 12:22 AM CDT) Pathologist [facility] CRP 66.8(H) <=10.0 mg/L [facility] Blood specimen (specimen) 06/10/2019 12:22 AM CDT 06/10/2019 12:45 AM CDT us Ned Urbina MD LAB BLOOD [place] [address] * (ABNORMAL) Iron profile w/ IBC (06/10/2019 12:22 AM CDT) [facility] Iron 33(L) 35 - 145 mcg/dL [facility] TIBC 378 250 - 400 mcg/dL [facility] Transferrin saturation 9(L) 20 - 50 % [facility] Blood specimen (specimen) 06/10/2019 12:22 AM CDT 06/10/2019 12:45 AM CDT us Ned Urbina MD LAB BLOOD ORDERABLES Final Result [facility] [place] [address] * Vitamin B12 (06/10/2019 12:22 AM CDT) Pathologist [facility] Vitamin B12 1,250 230 - 1,250 pg/mL [facility] Blood specimen (specimen) 06/10/2019 12:22 AM CDT 06/10/2019 12:45 AM CDT us Ned Urbina MD LAB BLOOD ORDERABLES Final Result Performing Organization Address City/[facility]/ZIP Co de Phone Number [facility] Department [place] [address] * Ferritin (06/10/2019 12:22 AM CDT) Pathologist [facility] Ferritin 132 15 - 150 ng/mL [facility] Blood specimen (specimen) 06/10/2019 12:22 AM CDT 06/10/2019 12:45 AM CDT us Ned Urbina MD LAB BLOOD ORDERABLES Final Result Performing Organization Address City/[facility]/ZIP Co de Phone Number [facility] [place] [address] * Differential, auto (06/10/2019 12:22 AM CDT) [facility] Neutrophil abs 4.6 1.7 - 6.5 K/cumm [facility] Imm gran abs 0.0 0.0 - 0.1 K/cumm [facility] Lymphocyte abs 1.6 0.8 - 3.3 K/cumm [facility] Monocyte abs 0.6 0.2 - 0.8 K/cumm [facility] Eosinophil abs 0.1 0.0 - 0.5 K/cumm [facility] Basophil abs 0.0 0.0 - 0.1 K/cumm [facility] Neutrophil pct 66.3 % [facility] Comment: Interpretive Data Percent cell count reference ranges are not reported, since discordance with absolute values may lead to misinterpretation of CBC data. Current Interpretive Data was last revised on 2017. Imm gran pct 0.4 % [facility] Comment: Interpretive Data Percent cell count [...] on 2017. Monocyte pct 9.0 % [facility] Comment: Interpretive Data Percent cell count reference ranges are not reported, since discordance with absolute values may lead to misinterpretation of CBC data. Current Interpretive Data was last revised on 2017. Eosinophil pct 1.2 % [facility] Comment: Interpretive Data Percent cell count reference ranges are not reported, since discordance with absolute values may lead to misinterpretation of CBC data. Current Interpretive Data was last revised on 2017. Basophil pct 0.6 % [facility] Comment: Interpretive Data Percent cell count reference ranges are not reported, since discordance with absolute values may lead to misinterpretation of CBC data. Current Interpretive Data was last revised on 2017. Blood specimen (specimen) 06/10/2019 12:22 AM CDT 06/10/2019 12:45 AM CDT Ned Urbina MD LAB BLOOD ORDERABLES Final Result [facility] Department [place] [address] * (ABNORMAL) aPTT (06/10/2019 12:22 AM CDT) [...] Final Result Performing Organization Address [facility] de Phone Number [facility] [place] [address] * (ABNORMAL) Protime-INR (06/10/2019 12:22 AM CDT) [facility] PT 27.5(H) 8.6 - 13.0 sec [facility] INR 2.5(H) 0.8 - 1.2 [facility] Comment: Interpretive data Oral anticoagulant therapeutic [...] Final Result Performing Organization Address [facility] de Phone Number [facility] [place] [address] * (ABNORMAL) CBC with auto differential (06/10/2019 12:22 AM CDT) [facility] WBC 6.9 3.8 - 9.9 K/cumm [facility] Hgb 8.2(L) 11.9 - 15.5 g/dL [facility] Hct 27.3(L) 35.6 - 45.5 % [facility] Plt 265 150 - 400 K/cumm [facility] MPV 10.3 9.1 - 12.3 fL [facility] RBC 2.83(L) 3.90 - 5.20 M/cumm [facility] MCV 96.5(H) 81.3 - 96.4 fL [facility] MCH 29.0 27.1 - 33.3 pg [facility] MCHC 30.0(L) 32.3 - 35.7 g/dL [facility] RDW CV 16.5(H) 11.1 - 14.9 % [facility] RDW SD 58.0(H) 35.7 - 48.1 fL [facility] NRBC abs 0.02(H) 0.00 - 0.01 K/cumm [facility] Blood specimen (specimen) 06/10/2019 12:22 AM CDT 06/10/2019 12:45 AM CDT Ned Urbina MD LAB BLOOD ORDERABLES Final Result Performing Organization Address City/[facility]/ZIP Co de Phone Number [facility] [place] [address] * Phosphorus (06/10/2019 12:22 AM CDT) Phosphorus, pl 2.7 2.3 - 4.5 mg/dL [facility] Blood specimen (specimen) 06/10/2019 12:22 AM CDT 06/10/2019 12:45 AM CDT Ned Urbina MD LAB BLOOD ORDERABLES Final Result Performing Organization Address City/[facility] Co de Phone Number [facility] [employer] [place] [address] * Magnesium (06/10/2019 12:22 AM CDT) Magnesium 1.8 1.4 - 2.5 mg/dL [facility] Blood specimen (specimen) 06/10/2019 12:22 AM CDT 06/10/2019 12:45 AM CDT Ned Urbina MD LAB BLOOD ORDERABLES Final Result [facility] Department [place] [address] * (ABNORMAL) Basic metabolic panel (06/10/2019 12:22 AM CDT) Sodium 135 135 - 145 mmol/L [facility] Potassium, pl 3.4 3.3 - 4.9 mmol/L [facility] Chloride 101 97 - 110 mmol/L [facility] CO2 26 22 - 32 mmol/L [facility] Anion gap 8 2 - 15 mmol/L [facility] BUN 14 8 - 25 mg/dL [facility] Creatinine 0.55(L) 0.60 - 1.10 mg/dL [facility] Glucose 141 70 - 199 mg/dL [facility] Comment: Interpretive Data Fasting glucose >/= [...] 2017. Calcium 8.7 8.5 - 10.3 mg/dL [facility] Blood specimen (specimen) 06/10/2019 12:22 AM CDT 06/10/2019 12:45 AM CDT Ned Urbina MD LAB BLOOD ORDERABLES Final Result [facility] Department [place] [address] * (ABNORMAL) POCT glucose (06/09/2019 8:06 PM CDT) Glucose, POC 206(H) 70 - 199 mg/dL [facility] Blood specimen (specimen) 06/09/2019 8:06 PM CDT 06/09/2019 8:06 PM CDT Ned Urbina MD LAB POCT ORDERABLES - [place] CE Final Result [facility] Department [place] [address] * CT Chest PE W Contrast (06/09/2019 [...] disease. Healed granulomatous disease is present. [place] there is no supraclavicular mediastinal or hilar [...] Glucose, POC 151 70 - 199 mg/dL [facility] Blood specimen (specimen) 06/09/2019 5:24 PM CDT 06/09/2019 5:24 PM CDT Ned Urbina MD LAB POCT ORDERABLES - [place] CE Final Result Performing Organization Address [facility] Co de Phone Number [facility] [place] [address] * (ABNORMAL) aPTT (06/09/2019 5:13 PM CDT) aPTT 70(H) 25 - 37 sec [facility] Comment: Interpretive data Heparin therapeutic range: 60-90 seconds Range based on correlation with therapeutic heparin activity range of 0.3-0.7 units/ml. Current interpretive data was last revised on 2019. Blood specimen (specimen) 06/09/2019 5:13 PM CDT 06/09/2019 5:21 PM CDT Narrative [facility] - 06/09/2019 5:51 PM CDT Draw STAT PTT 6 hrs after initial heparin bolus, after each rate change, and every 6 hours until 2 consecutive PTTs are within therapeutic range. Once two consecutive PTT's are therapeutic (60-94.9 seconds), then draw PTT every AM until heparin is discontinued. us Pascale Santos MD LAB BLOOD ORDERABL ES Final Result Performing Organization Address [facility] Co de Phone Number [facility] [place] [address] * (ABNORMAL) Troponin I (06/09/2019 1:26 PM CDT) Troponin I 2.97(C) 0.00 - 0.03 ng/mL [facility] Comment: Previous critical value noted 6 [...] for Troponin assay. References: 1. Clin Chem 2013;59:7716-[address]29 2. Journal of the [place] [employer] 2012;60:1581-98 Current Interpretive Data Last Revised Date: 2017. Blood specimen (specimen) 06/09/2019 1:26 PM CDT 06/09/2019 1:46 PM CDT us Ned Urbina MD LAB BLOOD ORDERABLES Final Result [facility] [place] [address] * POCT glucose (06/09/2019 11:41 AM CDT) [facility] Glucose, POC 141 70 - 199 mg/dL [facility] Blood specimen (specimen) 06/09/2019 11:41 AM CDT 06/09/2019 11:41 AM CDT Ned Urbina MD LAB POCT ORDERABLES - [place] CE Final Result [facility] [place] [address] * (ABNORMAL) aPTT (06/09/2019 10:08 AM CDT) Pathologist [facility] aPTT 50(H) 25 - 37 sec [facility] Comment: Interpretive data Heparin therapeutic range: 60-90 seconds Range based on correlation with therapeutic heparin activity range of 0.3-0.7 units/ml. Current interpretive data was last revised on 2019. Blood specimen (specimen) 06/09/2019 10:08 AM CDT 06/09/2019 10:19 AM CDT Narrative [facility] - 06/09/2019 10:55 AM CDT Draw STAT PTT 6 hrs after initial heparin bolus, after each rate change, and every 6 hours until 2 consecutive PTTs are within therapeutic range. Once two consecutive PTT's are therapeutic (60-94.9 seconds), then draw PTT every AM until heparin is discontinued. Pascale Santos MD LAB BLOOD ORDERABL ES Final Result Performing Organization Address [facility] Co de Phone Number [facility] Department [place] [address] * COVID-19 Coronavirus RNA Nasopharyngeal (06/09/2019 8:30 AM CDT) Pathologist [facility] COVID-19 RNA Not Detected [facility] Comment: Interpretive Data Testing performed at [facility]. The 2019-Novel Coronavirus [...] AM CDT 06/09/2019 10:50 AM CDT N[facility]ative [facility] - 06/09/2019 4:20 PM CDT Does the patient meet the testing requirements described in the process instructions above?->Yes us Ned Urbina MD LAB MICROBIOLOGY - GENERAL ORDERABLES Final Result Performing Organization Address City/[facility] Co de Phone Number [facility] Department [place] [address] * Respiratory pathogen PCR Nasopharyngeal (06/09/2019 8:30 AM CDT) Adenovirus DNA Not Detected Not Detected [facility] Coronavirus 229E RNA Not Detected Not Detected [facility] Coronavirus HKU1 RNA Not Detected Not Detected [facility] Coronavirus NL63 RNA Not Detected Not Detected [facility] Coronavirus OC43 RNA Not Detected Not Detected [facility] Metapneumovirus RNA Not Detected Not Detected [facility] Rhinovirus/Enterov irus RNA Not Detected Not Detected [facility] Influenza A RNA Not Detected Not Detected [facility] Influenza B RNA Not Detected Not Detected [facility] Parainfluenza 1 RNA Not Detected Not Detected [facility] Parainfluenza 2 RNA Not Detected Not Detected [facility] Parainfluenza 3 RNA Not Detected Not Detected [facility] Parainfluenza 4 RNA Not Detected Not Detected [facility] RSV RNA Not Detected Not Detected [facility] B. pertussis DNA Not Detected Not Detected [facility] C. pneumoniae DNA Not Detected Not Detected [facility] M. pneumoniae DNA Not Detected Not Detected [facility] B. parapertussis DNA Not Detected Not Detected [facility] Comment: The [employer] FilmArray Respiratory Panel (RP2) assay is a [...] FilmArray RP2 assay is FDA cleared for BILLING REP swabs. ??Additional sample types have been validated according to CLIA regulations. The performance characteristics of this assay have been determined by [facility]. Current interpretive data was last revised on 2018. Nasopharyngeal 06/09/2019 8: 30 AM CDT 06/09/2019 10:50 AM CDT Ned Urbina MD LAB MICROBIOLOGY - GENERAL ORDERABLES Final Result [facility] Department [place] [address] * Influenza A/B and RSV PCR Nasopharyngeal (06/09/2019 8:30 AM CDT) Pathologist [facility] Influenza A RNA Not Detected Not Detected [facility] Influenza B RNA Not Detected Not Detected [facility] RSV RNA Not Detected Not Detected [facility] Comment: Interpretive Data Testing performed by [facility] ([phone]). This test is performed using the [employer] Xpert Flu/RSV Assay. ??This is a multiplex, real-time reverse transcriptase PCR assay that detects influenza A, influenza B,and respiratory syncytial virus RNA. ??This assay has been cleared by the [place] Food and Drug Administration, and its performance characteristics have been verified by the [facility]. Interpretive Data last revised 2018 Nasopharyngeal 06/09/2019 8: 30 AM CDT 06/09/2019 8:50 AM CDT Ned Urbina MD LAB MICROBIOLOGY - GENERAL ORDERABLES Final Result Performing Organization Address City/[facility]/ZIP Co de Phone Number [facility] Department [place] [address] * POCT glucose (06/09/2019 7:27 AM CDT) Glucose, POC 140 70 - 199 mg/dL [facility] Blood specimen (specimen) 06/09/2019 7:27 AM CDT 06/09/2019 7:27 AM CDT us Ned Urbina MD LAB POCT ORDERABLES - [place] CE Final Result Performing Organization Address [facility] de Phone Number [facility] Department [place] [address] * (ABNORMAL) Troponin I (06/09/2019 7:22 AM CDT) Troponin I 3.47(C) 0.00 - 0.03 ng/mL [facility] Comment: Previous critical value noted 5 [...] for Troponin assay. References: 1. Clin Chem 2013;59:6435-1082 2. Journal of the [place] 2012;60:1581-98 Current Interpretive Data Last Revised Date: 2017. Blood specimen (specimen) 06/09/2019 7:22 AM CDT 06/09/2019 8:45 AM CDT us Ned Urbina MD LAB BLOOD ORDERABLES Final Result Performing Organization Address [facility] Co de Phone Number [facility] [place] [address] * (ABNORMAL) aPTT (06/09/2019 3:43 AM CDT) [facility] aPTT 58(H) 25 - 37 sec [facility] Comment: Interpretive data Heparin therapeutic range: 60-90 seconds Range based on correlation with therapeutic heparin activity range of 0.3-0.7 units/ml. Current interpretive data was last revised on 2019. Blood specimen (specimen) 06/09/2019 3:43 AM CDT 06/09/2019 3:58 AM CDT Narrative [facility] - 06/09/2019 4:20 AM CDT Draw STAT PTT 6 hrs after initial heparin bolus, after each rate change, and every 6 hours until 2 consecutive PTTs are within therapeutic range. Once two consecutive PTT's are therapeutic (60-94.9 seconds), then draw PTT every AM until heparin is discontinued. us Pascale Santos MD LAB BLOOD ORDERABL ES Final Result Performing Organization Address [facility] de Phone Number [facility] [place] [address] * (ABNORMAL) Hepatic function panel (06/09/2019 3:43 AM CDT) [facility] Bilirubin, total 1.3(H) 0.1 - 1.2 mg/dL [facility] Bilirubin, direct 0.4(H) 0.1 - 0.3 mg/dL [facility] Protein, pl 6.6 6.5 - 8.5 g/dL [facility] Albumin 3.1(L) 3.5 - 5.0 g/dL [facility] Alk phos 116 40 - 130 Units/L [facility] ALT 39 7 - 45 Units/L [facility] AST 50(H) 10 - 45 Units/L [facility] Blood specimen (specimen) 06/09/2019 3:43 AM CDT 06/09/2019 3:59 AM CDT us Ned Urbina MD LAB BLOOD ORDERABLES Final Result Performing Organization Address [facility] Co de Phone Number [facility] [place] [address] * (ABNORMAL) Hepatic function panel (06/09/2019 1:23 AM CDT) Bilirubin, total 1.1 0.1 - 1.2 mg/dL [facility] Bilirubin, direct 0.4(H) 0.1 - 0.3 mg/dL [facility] Protein, pl 6.3(L) 6.5 - 8.5 g/dL [facility] Albumin 2.9(L) 3.5 - 5.0 g/dL [facility] Alk phos 112 40 - 130 Units/L [facility] ALT 39 7 - 45 Units/L [facility] AST 51(H) 10 - 45 Units/L [facility] Blood specimen (specimen) 06/09/2019 1:23 AM CDT 06/09/2019 1:48 AM CDT us Ned Urbina MD LAB BLOOD ORDERABLES Final Result Performing Organization Address [facility] Co de Phone Number [facility] [place] [address] * (ABNORMAL) Troponin I (06/09/2019 1:23 AM CDT) Troponin I 4.36(C) 0.00 - 0.03 ng/mL [facility] Comment: Previous critical value noted 2 [...] for Troponin assay. References: 1. Clin Chem 2013;59:7976-[address]63 2. Journal of the [place] [employer] 2012;60:1581-98 Current Interpretive Data Last Revised Date: 2017. Blood specimen (specimen) 06/09/2019 1:23 AM CDT 06/09/2019 1:48 AM CDT Ned Urbina MD LAB BLOOD ORDERABLES Final Result Performing Organization Address [facility] de Phone Number [facility] Department [place] [address] * T4, free (06/09/2019 1:23 AM CDT) Free T4 1.25 0.90 - 1.70 ng/dL [facility] Blood specimen (specimen) 06/09/2019 1:23 AM CDT 06/09/2019 1:48 AM CDT Result [facility] Pascale Santos MD LAB BLOOD ORDERABL ES Final Result Performing Organization Address [facility] de Phone Number [facility] Department [place] [address] * (ABNORMAL) TSH (06/09/2019 1:23 AM CDT) Thyroid Stimulating Hormone 7.49(H) 0.30 - 4.20 mcIUnit/mL [facility] Blood specimen (specimen) 06/09/2019 1:23 AM CDT 06/09/2019 1:48 AM CDT Pascale Santos MD LAB BLOOD ORDERABL ES Final Result Performing Organization Address [facility]/ZIP Co de Phone Number [facility] [place] [address] * POCT glucose (06/09/2019 1:14 AM CDT) Glucose, POC 139 70 - 199 mg/dL [facility] Blood specimen (specimen) 06/09/2019 1:14 AM CDT 06/09/2019 1:14 AM CDT us Ned Urbina MD LAB POCT ORDERABLES - [place] CE Final Result Performing Organization Address [facility] Co de Phone Number [facility] [place] [address] * POCT glucose (06/08/2019 11:53 PM CDT) Glucose, POC 156 70 - 199 mg/dL [facility] Blood specimen (specimen) 06/08/2019 11:53 PM CDT 06/08/2019 11:53 PM CDT us Ned Urbina MD LAB POCT ORDERABLES - [place] CE Final Result Performing Organization Address [facility] Co de Phone Number [facility] Department [place] [address] * (ABNORMAL) Troponin I (06/08/2019 10:55 PM CDT) [facility] Troponin I 5.01(C) 0.00 - 0.03 ng/mL [facility] Comment: Previous critical value noted 5 [...] for Troponin assay. References: 1. Clin Chem 2013;59:[id number] 2. Journal of the [place] 2012;60:1581-98 Current Interpretive Data Last Revised Date: 2017. Blood specimen (specimen) 06/08/2019 10:55 PM CDT 06/08/2019 11:10 PM [address]ative [facility] - 06/08/2019 11:51 PM CDT THE BJ COLLECTION LOCATION IS [facility] [id number] us Dwayne Jacobsen MD LAB BLOOD ORDERABLES Final Resul t [facility] Department [place] [address] * [place] [facility] ILL/INJURED PATIENT INIT 30-74 MIN [...] CDT) aPTT 27 25 - 37 sec [facility] Comment: Interpretive data Heparin therapeutic range: 60-90 seconds Range based on correlation with therapeutic heparin activity range of 0.3-0.7 units/ml. Current interpretive data was last revised on 2019. Blood specimen (specimen) 06/08/2019 9:22 PM CDT 06/08/2019 9:33 PM CDT Narrative [facility] - 06/08/2019 9:46 PM CDT Unless preformed in the last 48 hours. Draw prior to heparin administration. THE BJ COLLECTION LOCATION IS [facility] ED1-14 us Dwayne Jacobsen MD LAB BLOOD ORDERABLES Final Resul t [facility] Department [place] [address] * (ABNORMAL) Protime-INR (06/08/2019 9:22 PM CDT) PT 32.7(H) 8.6 - 13.0 sec [facility] INR 3.0(H) 0.8 - 1.2 [facility] Comment: Interpretive data Oral anticoagulant therapeutic ranges: Venous thromboembolism prophylaxis or treatment: 2.0-3.0 CARDIOLOGY Standard range: 2.0-3.0 High-intensity range: 2.5-3.5 Refer to indication-specific guidelines for appropriate target ranges for prosthetic heart valve replacement. Current interpretive data was last revised on 2019. Blood specimen (specimen) 06/08/2019 9:22 PM CDT 06/08/2019 9:33 PM CDT Narrative [facility] - 06/08/2019 9:46 PM CDT Unless preformed in the last 48 hours. Draw prior to heparin administration. THE COLLECTION LOCATION IS [facility] ED1-14 us Dwayne Jacobsen MD LAB BLOOD ORDERABLES Final Resul t [facility] Department [place] [address] * (ABNORMAL) CBC without differential (06/08/2019 9:22 PM CDT) [facility] WBC 7.9 3.8 - 9.9 K/cumm [facility] Hgb 8.5(L) 11.9 - 15.5 g/dL [facility] Hct 28.6(L) 35.6 - 45.5 % [facility] Plt 276 150 - 400 K/cumm [facility] MPV 10.6 9.1 - 12.3 fL [facility] RBC 2.93(L) 3.90 - 5.20 M/cumm [facility] MCV 97.6(H) 81.3 - 96.4 fL [facility] MCH 29.0 27.1 - 33.3 pg [facility] MCHC 29.7(L) 32.3 - 35.7 g/dL [facility] RDW CV 16.5(H) 11.1 - 14.9 % [facility] RDW SD 58.2(H) 35.7 - 48.1 fL [facility] NRBC abs 0.04(H) 0.00 - 0.01 K/cumm [facility] Blood specimen (specimen) 06/08/2019 9:22 PM CDT 06/08/2019 9:37 PM CDT Narrative [facility] - 06/08/2019 9:46 PM CDT Unless preformed in the last 48 hours. Draw prior to heparin administration. THE COLLECTION LOCATION IS [facility] ED1-14 us Dwayne Jacobsen MD LAB BLOOD ORDERABLES Final Resul t Performing Organization Address City/[facility]/ZIP Co de Phone Number [facility] Department [place] [address] * ECG 12-LEAD (06/08/2019 7:16 PM CDT) [...] MD ECG ORDERABLES Final Re sult [facility] * POCT glucose (06/08/2019 5:13 PM CDT) Glucose, POC 158 70 - 199 mg/dL [facility] Blood specimen (specimen) 06/08/2019 5:13 PM CDT 06/08/2019 5:13 PM CDT us Notinfile Unknown LAB POCT ORDERABLES - DEVICE F inal Result [facility] Department [place] [address] * (ABNORMAL) Lipid panel (06/08/2019 5:10 PM CDT) Cholesterol 65 30 - 199 mg/dL [facility] Comment: Interpretive [...] revised on 2017. HDL 21(L) >=40 mg/dL [facility] Comment: Interpretive Data [...] 2017. LDL, calculated 17 <=129 mg/dL [facility] Comment: [...] ORDERABLES Fin al Result Performing Organization Address City/[facility] Co de Phone Number [facility] Department [place] [address] * Critical result callback Cardio chemistry (06/08/2019 5:10 PM CDT) Date Notified [id number] [facility] Time Notified 17:[address] [facility] Test name trop [facility] Called/Read Back Beau SMART Credentials MD [facility] Called By JACOB PEÑA Blood specimen (specimen) 06/08/2019 5:10 PM CDT 06/08/2019 5:21 PM CDT us Beau Eldridge MD LAB BLOOD ORDERABLES Fin al Result Performing Organization Address City/[facility] Co de Phone Number [facility] Department [place] [address] * Differential, auto (06/08/2019 5:10 PM CDT) Neutrophil abs 5.1 1.7 - 6.5 K/cumm [facility] Imm gran abs 0.0 0.0 - 0.1 K/cumm [facility] Lymphocyte abs 1.2 0.8 - 3.3 K/cumm [facility] Monocyte abs 0.6 0.2 - 0.8 K/cumm [facility] Eosinophil abs 0.1 0.0 - 0.5 K/cumm [facility] Basophil abs 0.0 0.0 - 0.1 K/cumm [facility] Neutrophil pct 72.0 % [facility] Comment: Interpretive Data Percent cell count reference ranges are not reported, since discordance with absolute values may lead to misinterpretation of CBC data. Current Interpretive Data was last revised on 2017. Imm gran pct 0.6 % [facility] Comment: Interpretive Data Percent cell count reference ranges are not reported, since discordance with absolute values may lead to misinterpretation of CBC data. Current Interpretive Data was last revised on 2017. Lymphocyte pct 17.4 % [facility] Comment: Interpretive Data Percent cell count reference ranges are not reported, since discordance with absolute values may lead to misinterpretation of CBC data. Current Interpretive Data was last revised on 2017. Monocyte pct 8.8 % [facility] Comment: Interpretive Data Percent cell count reference ranges are not reported, since discordance with absolute values may lead to misinterpretation of CBC data. Current Interpretive Data was last revised on 2017. Eosinophil pct 0.9 % [facility] Comment: Interpretive Data Percent cell count reference ranges are not reported, since discordance with absolute values may lead to misinterpretation of CBC data. Current Interpretive Data was last revised on 2017. Basophil pct 0.3 % [facility] Comment: Interpretive Data Percent cell count reference ranges are not reported, since discordance with absolute values may lead to misinterpretation of CBC data. Current Interpretive Data was last revised on 2017. Blood specimen (specimen) 06/08/2019 5:10 PM CDT 06/08/2019 5:21 PM CDT Beau Eldridge MD LAB BLOOD ORDERABLES Fin al Result Performing Organization Address [facility] Co de Phone Number [facility] [place] [address] * (ABNORMAL) Protime-INR (06/08/2019 5:10 PM CDT) PT 31.7(H) 8.6 - 13.0 sec [facility] INR 2.9(H) 0.8 - 1.2 [facility] Comment: Interpretive data Oral anticoagulant therapeutic ranges: Venous thromboembolism prophylaxis or treatment: 2.0-3.0 CARDIOLOGY Standard range: 2.0-3.0 High-intensity range: 2.5-3.5 Refer to indication-specific guidelines for appropriate target ranges for prosthetic heart valve replacement. Current interpretive data was last revised on 2019. Blood specimen (specimen) 06/08/2019 5:10 PM CDT 06/08/2019 5:17 PM CDT Narrative [facility] - 06/08/2019 5:40 PM CDT THE COLLECTION LOCATION IS [facility] ED1-14 Beau Eldridge MD LAB BLOOD ORDERABLES Fin al Result Performing Organization Address [facility] de Phone Number [facility] [place] [address] * aPTT (06/08/2019 5:10 PM CDT) aPTT 30 25 - 37 sec [facility] Comment: Interpretive data Heparin therapeutic range: 60-90 seconds Range based on correlation with therapeutic heparin activity range of 0.3-0.7 units/ml. Current interpretive data was last revised on 2019. Blood specimen (specimen) 06/08/2019 5:10 PM CDT 06/08/2019 5:17 PM CDT Narrative [facility] - 06/08/2019 5:40 PM CDT THE COLLECTION LOCATION IS [facility] ED1[facility] Beau Eldridge MD LAB BLOOD ORDERABLES Fin al Result Performing Organization Address [facility] de Phone Number [facility] Department [place] [address] * Phosphorus (06/08/2019 5:10 PM CDT) Pathologist [facility] Phosphorus, pl 2.9 2.3 - 4.5 mg/dL [facility] Blood specimen (specimen) 06/08/2019 5:10 PM CDT 06/08/2019 5:21 PM CDT Narrative [facility] - 06/08/2019 5:53 PM CDT THE COLLECTION LOCATION IS [place] [address] Beau Eldridge MD LAB BLOOD ORDERABLES Fin al Result Performing Organization Address [facility] de Phone Number [facility] Department [place] [address] * Magnesium (06/08/2019 5:10 PM CDT) [facility] Magnesium 1.8 1.4 - 2.5 mg/dL [facility] Blood specimen (specimen) 06/08/2019 5:10 PM CDT 06/08/2019 5:21 PM CDT Narrative [facility] - 06/08/2019 5:53 PM CDT [facility]LE[facility]ATION [facility] Beau Eldridge MD LAB BLOOD ORDERABLES Fin al Result Performing Organization Address [facility] de Phone Number [facility] Department [place] [address] * (ABNORMAL) Pro B-type natriuretic peptide (06/08/2019 5:10 PM CDT) [facility] NT-proBNP 6,714(H) <=450 pg/mL [facility] Comment: Interpretive Comments: A. Dyspnea in [...] PM CDT 06/08/2019 5:21 PM CDT Narrative [facility] - 06/08/2019 5:53 PM CDT THE COLLECTION LOCATION IS [facility] ED1-14 Beau Eldridge MD LAB BLOOD ORDERABLES Fin al Result Performing Organization Address [facility] Co de Phone Number [facility] Department [place] [address] * (ABNORMAL) Troponin I (06/08/2019 5:10 PM CDT) [facility] Troponin I 6.34(C) 0.00 - 0.03 ng/mL [facility] Comment: Interpretive Data: Normal plasma Troponin [...] for Troponin assay. References: 1. Clin Chem 2013;[id number] 2. Journal of the [place] [employer] 2012;60:[id number] Current Interpretive Data Last Revised Date: 2017. Blood specimen (specimen) 06/08/2019 5:10 PM CDT 06/08/2019 5:21 PM CDT Narrative [facility] - 06/08/2019 5:58 PM CDT THE COLLECTION LOCATION IS [facility] ED1-14 Beau Eldridge MD LAB BLOOD ORDERABLES Fin al Result Performing Organization Address [facility]/ZIP Co de Phone Number [facility] Department [place] [address] * Basic metabolic panel (06/08/2019 5:10 PM CDT) [facility] Sodium 136 135 - 145 mmol/L [facility] Potassium, pl 4.1 3.3 - 4.9 mmol/L [facility] Chloride 103 97 - 110 mmol/L [facility] CO2 25 22 - 32 mmol/L [facility] Anion gap 8 2 - 15 mmol/L [facility] BUN 13 8 - 25 mg/dL [facility] Creatinine 0.61 0.60 - 1.10 mg/dL [facility] Glucose 160 70 - 199 mg/dL [facility] Comment: Interpretive Data Fasting glucose >/= [...] 2017. Calcium 8.5 8.5 - 10.3 mg/dL [facility] Blood specimen (specimen) 06/08/2019 5:10 PM CDT 06/08/2019 5:21 PM CDT Narrative [facility] - 06/08/2019 5:53 PM CDT THE COLLECTION LOCATION IS [facility] ED1-14 us Beau Eldridge MD LAB BLOOD ORDERABLES [facility] al Result [facility] Department [place] [address] * (ABNORMAL) CBC with auto differential (06/08/2019 5:10 PM CDT) [facility] WBC 7.0 3.8 - 9.9 K/cumm [facility] Hgb 8.6(L) 11.9 - 15.5 g/dL [facility] Hct 28.3(L) 35.6 - 45.5 % [facility] Plt 255 150 - 400 K/cumm [facility] MPV 10.1 9.1 - 12.3 fL [facility] RBC 2.89(L) 3.90 - 5.20 M/cumm [facility] MCV 97.9(H) 81.3 - 96.4 fL [facility] MCH 29.8 27.1 - 33.3 pg [facility] MCHC 30.4(L) 32.3 - 35.7 g/dL [facility] RDW CV 16.6(H) 11.1 - 14.9 % [facility] RDW SD 59.4(H) 35.7 - 48.1 fL [facility] NRBC abs 0.03(H) 0.00 - 0.01 K/cumm [facility] Blood specimen (specimen) 06/08/2019 5:10 PM CDT 06/08/2019 5:21 PM CDT Narrative [facility] - 06/08/2019 5:26 PM CDT THE COLLECTION LOCATION IS [facility] ED1-14 us Beau Eldridge MD LAB BLOOD ORDERABLES Fin al Result Performing Organization Address City/State/[facility] Co de Phone Number [facility] Department [place] [address] * XR Chest Pa Lateral 2 Vw [...] Call MD for each episode of hypoglycemia. REGULATORY COMPLIANCE MANAGER STATES GLUTOSE-15 CONTAINS GLUCOSE 40% W/W (50% [...] 1010 (Given - Provider: Stas Robbins RN) 0852 [...] not met)1259 (Not Given - Provider: Negra Lie RN - Reason: Order parameters not met) [...] mEq (COMPLETED) 40 mEq, oral, Once, On [place] 06/12/19 at 0530, For 1 dose, Do [...] Call MD for each episode of hypoglycemia. REGULATORY COMPLIANCE MANAGER STATES GLUTOSE-15 CONTAINS GLUCOSE 40% W/W (50% W/V), Indications: hypoglycemic disorder glucagon injection 1 mg 1 mg, intramuscular, Administer over 1 Minutes, Every 30 min PRN, low blood sugar, blood glucose less than 70 mg/dL AND no IV access AND unable to take PO glucose/jiuce., Starting on [facility] 06/09/19 at 0059, After Glucagon is administered, [...] 4 hours PRN, breakthrough pain, Starting on [place] 06/12/19 at 0916, Indications: Pain 1135 (Given - Provider: Stas Robbins RN) 1307 (Given - Provider: Negra eLi RN) oxyCODONE-acetaminophen (PERCOCET) 5-325 mg per tablet 1 tablet (CANCELED) 1 tablet, oral, Every 4 hours PRN, breakthrough pain, Starting on [facility] 06/09/19 at 0428, For 47 days, Indications: Pain 1059 (Given - Provider: Stas Robbins RN)1906 (Given - Provider: Stas Robbins, ARMANI) 0850 (Given - Provider: Stas Robbins, ARMANI) sodium chloride 0.9% flush 0.5-20 mL 0.5-20 mL, intra-catheter, As needed, line care, Starting on [facility] 06/09/19 at 0059, Flush volume based on [...] Call MD for each episode of hypoglycemia. REGULATORY COMPLIANCE MANAGER STATES GLUTOSE-15 CONTAINS GLUCOSE 40% W/W (50% W/V), Indications: hypoglycemic disorder Or dextrose (D10W) 10% bolus 250 mLJump to med 250 mL, intravenous, at 1,000 mL/hr, Administer over 15 Minutes, Every 15 min PRN, blood glucose less than 70 mg/dL and UNABLE to swallow/take PO glucose/juice., Starting on [place] 06/09/19 at 0059, After treatment for hypoglycemia, [...] pt afebrile, without URI signs/symptoms. Aislinn Goldsmith, EBA[employer] RESELLER 06/09/2019 06/09/2019 06/09/2019 4:20 PM C DT documented as of this encounter Care Teams Vehicle Body Sander Relationship Specialty Start Date End Date Wilber Cleaning Jr., MD [address] [place] [address] PCP - General 07/03/16 07/15/20 documented as of this encounter
--- OUTSIDE RECORDS SUMMARY | 2024-03-25 11:05 | XMS_ITS | Encounter Summary ---
Author Organization [facility] Healthcare Address [address] [place] [address] Care Team Providers Care Client Development Director Name Role Phone Hermila Calhoun MD, Wilber Martinez Primary Care Provider Encounter Details Date Type Department Care Team (Latest Contact Info) Description 05/29/2019 9:14 PM CDT - 06/05/2019 4:13 PM CDT Hospital Encounter [facility] [address] [place] [address] Keanu Hwang MD [address] [place] [address] Alessandro Erazo MD [address] [place] [address] Irais Holguin MD [address] [facility] [phone] [place] [address] Atrial fibrillation with RVR (CMS/HCC) (Primary Dx) [...] on file Legal Sex Female 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 TAILOR Gender Identity Not on file Sexual Orientation [...] UNSPECIFIED Type 2 diabetes mellitus with hyperglycemia ([facility]/HCC) (HCC) - TYPE 2 DIABETES MELLITUS WITH [...] (FROM) UNSPECIFIED STAIRS AND STEPS, SUBSEQUENT ENCOUNTER detention (current) use of anticoagulants - PENITENTIARY (CURRENT) USE OF ANTICOAGULANTS Long-term (current) use of anticoagulants emt intermediate (current) use of insulin (HCC) - INVENTORY MANAGER (CURRENT) USE OF INSULIN Hormone replacement therapy - HORMONE REPLACEMENT THERAPY Other fdc (current) drug therapy - OTHER INVENTORY MANAGER (CURRENT) DRUG THERAPY Family history of sudden [...] postprocedural states - OTHER SPECIFIED POSTPROCEDURAL STATES detention (current) use of oral hypoglycemic drugs - INVENTORY MANAGER (CURRENT) USE OF ORAL HYPOGLYCEMIC DRUGS Allergy [...] Physician at Discharge: Wilber Cleaning Jr., MD [phone] Admission Date: 05/29/2019 Discharge Date: 06/05/2019 Admission Location: [facility] Problems/Diagnoses: Principal Problem: Atrial fibrillation with RVR (CMS/HCC) Active Problems: Acute pulmonary embolism with acute cor pulmonale (CMS/HCC) Left femoral fracture Hypothyroidism, unspecified Obstructive sleep apnea Diabetes mellitus type II, controlled ([facility]) Hypertension, essential Resolved Problems: No resolved hospital problems. DETAILS OF HOSPITAL STAY Presenting Problem/History of Present Illness: Ms. Hodgson is a 79 yo F with h/o chronic Afib with RVR, T2DM, and recent L distal femoral fx s/p replacement by Ortho at [facility] 05/20 and clean out of bone fragments [...] gtt for anticoagulation. She was transferred to [facility] SICU, where repeat labs were significant for [...] were continued and recommended continued therapy at jail facility at discharge. She has follow up [...] daily. She will follow up with her classifier operator for further management as outpatient. ?? #T2DM [...] (Coreg) [facility] When you go to rehab, you can restart losartan at 50 mg daily. When you follow up with your primary care doctor, they can continue to adjust your blood pressure regimen as needed. You should also follow up with your outpatient classifier operator, who can continue to monitor your Afib, [...] should also follow up with your outpatient classifier operator, who can continue to monitor your Afib, [...] Care Everywhere. * Pulmonary Embolism (Discharge Care) (American) documented in this encounter Medications at Time [...] Disposition Code Departure Means Destination Discharge to [facility] documented in this encounter Progress Notes * Yolanda Randle LCSW - 06/05/2019 11:18 AM CDT 06/05/19 1112 Discharge Summary Chart reviewed For Medical Necessity Does patient have a planned readmission to hospital planned? No Discharge Disposition SNF, Commercial Insurance, Short term Skilled Specify Facility [facility] Contact Number , Discharge Records Transfer Form Completed;Chart Copied Discharge Additional Assistance Does the patient need discharge transport arranged? Yes Has discharge transport been arranged? Yes Details of Transportation [facility], Trip #[id number] What day is the transport expected? 06/05/19 [...] discharge plan. Patient has been accepted to [facility] in [place], [facility] auth #[id number]. RN informed to call report to [phone]. Social work faxed ordersto [phone]. Patient, family etc. are aware and are agreeable to plan. Transportation has been arranged via [facility] for crop picker at 15:00, Trip #[id number]. Mode of transport has been discussed with the patient/family, doctors, nurses, and [facility] and all are agreeable to plan andunderstand [...] the bill. Patient/family voiced understanding. Yolanda BURRW, AIR TWISTER WINDER Salesperson [employer] [phone] * Kae Adkins MD - 06/05/2019 8:58 [...] 2.0. Patient has decided on discharge to [facility] for continued rehab. Objective Scheduled Medications: carvediloL, [...] as tolerated Diabetes mellitus type II, controlled ([facility]) Assessment & Plan Home regimen of metformin [...] as tolerated Diabetes mellitus type II, controlled ([facility]) Assessment & Plan Home regimen of metformin [...] blood pressures Diabetes mellitus type II, controlled ([facility]) Assessment & Plan Home regimen of metformin [...] questions or concerns .Suzanne Romo MD PGY-5 [facility] Orthopaedic Surgery Dept * Kae Adkins MD [...] blood pressures Diabetes mellitus type II, controlled ([facility]) Assessment & Plan Home regimen of metformin [...] Ortho Recon Daily Progress Subjective Prema Hodgson [id number] 79 y/o F POD 8 s/p L [...] the appropriate orthopaedic surgery team, please use HyprKey to page resident directly. ?? If you have questions overnight or can't reach the appropriate resident, please call the Orthopaedic Surgery Consult Pager [phone] to have your questions answered or be [...] blood pressures Diabetes mellitus type II, controlled ([facility]) Assessment & Plan Home regimen of metformin [...] Ortho Recon Daily Progress Subjective Prema Hodgson [id number] 79 y/o F POD 7 s/p L [...] Mobilize w/ PT daily Dressing: Changed to xeciz2x0/medipore tape today. Please leave steris/theodore in place [...] the appropriate orthopaedic surgery team, please use [email or web address] to page resident directly. ?? If you have questions overnight or can't reach the appropriate resident, please call the Orthopaedic Surgery Consult Pager [phone] to have your questions answered or be [...] her medical condition allows. Kaveh Charles M.D. [employer], Orthopaedic Surgery * Kae Adkins MD - 05/31/2019 7:40 PM CDT Internal Medicine Daily Progress Subjective Chief complaint: Pulmonary embolism Interval History: Prema Hodgson is a 79yo F with a [...] 0.110. The patient was susbequently transferred to [facility] on 05/28 for further management. Here, [...] Acute pulmonary embolism with acute cor pulmonale ([facility]) Assessment & Plan Presented with SOB, chest [...] INR daily * Atrial fibrillation with RVR ([facility]) Assessment & Plan Patient with history of [...] blood pressures Diabetes mellitus type II, controlled ([facility]) Assessment & Plan Home regimen of metformin [...] [facility] No Living Arrangements FDC Type of Residence FDC Does patient wish to return to care facility? No, wishes for other placement Facility contact name and number: [facility] Financial Resource Payor Source Medicare advantage Potential Discharge Needs Anticipated discharge level of care alf facility Pt/Family agrees with Anticipated Level of Care Yes Patient expects to be discharged to: Fpc Facility Chart reviewed for: Medical Necessity Patient [...] at this time. Patient was living at [facility] prior to admission but would like to dc to [facility]. SW notified and following. Transportation at discharge: to be determined Plan of Care: 1. Collaboration with patient/spouse, MD, direct care nurse, Salesperson [employer], and other members of the health care team to assure needed interventions completed. 2. Return patient to baseline post discharge. 3. Publicity Agent will follow along with SW for Discharge [...] if I may be of any assistance. [phone] * Geovanna Luna RPh - 05/31/2019 8:14 AM CDT Patient profile has been reviewed by a clinical hospital pharmacy director on 05/31/2019. Case reviewed on rounds with [...] Ortho Recon Daily Progress Subjective Prema Hodgson [id number] 79 y/o F POD 6 s/p L [...] the appropriate orthopaedic surgery team, please use [email or web address] to page resident directly. ?? If you have questions overnight or can't reach the appropriate resident, please call the Orthopaedic Surgery Consult Pager [phone] to have your questions answered or be [...] DPT, 05/30/19, 3:35 PM * Geovanna Luna [facility] - 05/30/2019 11:51 AM CDT Patient profile has been reviewed by a clinical hospital pharmacy director on 05/30/2019. Case reviewed on rounds with multidisciplinary team or outside of rounds with prescribers as necessary. Additional significant interventions or issues related to ongoing monitoring are listed below as appropriate. Increase metoprolol to 12.5 mg q6h for heart rate control. Discontinue hydrochlorothiazide. Increase to a high dose sliding scale insulin and discontinue D5LR at 25 mL/hr. Geovanna Luna [facility], Pharm.D. * Cuba Singleton MD - 05/30/2019 [...] Anderson MD - 05/30/2019 2:06 AM CDT [facility] Trauma Surgery ICU Daily Progress Subjective Patient [...] Fay M.D. General Surgery, PGY-4 2:09 AM [phone] I have personally seen and examined this patient on the date of service as documented on the resident note and have reviewed and confirmed the history, physical exam, laboratory,radiographic data, assessment and plan as documented by the resident. Khanh Anderson MD Section of Acute and Critical Care Surgery * Parris Fay MD - 05/29/2019 10:55 PM CDT [facility] Geriatric Trauma Surgery History and Physical Encounter [...] instruction for close follow up with her classifier operator. She was taken to an OSH from [...] injection 1-5 Units 1-5 Units subcutaneous Q4H [facility] Kevin Riley MD 3 Units at 05/29/192147 ??? [START ON 05/30/2019] levothyroxine (SYNTHROID) tablet 25 mcg 25 mcg oral Daily Kevin Riley MD ??? magnesium sulfate 2 g/50 mL in water (premix) 2 g 2 g intravenous Once Kevin Riley MD 2 gat 05/29/192246 ??? [START ON 05/30/2019] multivit vlhvezrs-tiub-WI-calcium (THERA-M) tablet 1 tablet 1 tablet oral [...] femoral fx s/p replacement by Ortho at [facility] 05/20 and clean out of bone fragments [...] Post-Procedure Diagnose(s): Atrial fibrillation with RVR (CMS/HCC) ([facility]) Critical Care Performed by: Miguel Centeno MD [...] plan with the ICU team and other medical/regional sales consultant staff, making frequent assessments and decisions [...] Post-Procedure Diagnose(s): Atrial fibrillation with RVR (CMS/HCC) ([facility]) Critical Care Performed by: Miguel Centeno MD [...] plan with the ICU team and other medical/regional sales consultant staff, making frequent assessments and decisions [...] plan with the ICU team and other medical/regional sales consultant staff, making frequent assessments and decisions [...] 05/29/2019 10:57 PM CDT Patient arrived from [facility] per EMS at 2116. Patient [...] - 06/05/2019 10:12 AM CDT Patient completed [facility] chart review. Patient and stated they wanted to discharge home yesterday. CM spoke with patient at bedside to discuss home health agencies. Patient then stated she is now wanting to discharge to rehab at [facility]. WEB SOLUTIONS ARCHITECT contacted patient's spouse, Ravi ([phone]). Ravi stated he is agreeable for patient to discharge to [facility]. WEB SOLUTIONS ARCHITECT stated patient's [employer] authorization is valid through today and patient could discharge today if stable. Ravi stated he would not want patient to discharge today and still had concerns that he wantedto discuss with the physicians. WEB SOLUTIONS ARCHITECT stated she would update Ravi after she contacted [facility] nolvia and the [facility] team. WEB SOLUTIONS ARCHITECT contacted Gloria ([phone]) with [facility]. Gloria stated she still has [employer] authorization and a bed available for patient today. Gloria stated she would contact the facility to confirm and then update [facility] today. WEB SOLUTIONS ARCHITECT contacted Dr. Adkins with [facility] team. Dr. Adkins stated patient is stable and agreed to contact patient's spouse, Ravi, to discuss concerns. Anticipate patient will discharge today to [facility] pending confirmation of bed and insurance authorization. Yolanda Randle LCSW, AIR TWISTER WINDER Salesperson [employer] [phone] * Plan of Care - Kristofer Quiñonez [...] for pain. [facility] States that her pain is [...] that she would like to go to [place], a [facility] becauseher cannot take care of her at [...] that they may have discharge needs and [facility] that there was a change in the discharge plan. No further SW needs at this time. Paulina Malcolm [facility] Weekend Salesperson [employer] [phone] * Plan of Care - Alf Crump [...] not therapeutic. Patient has been accepted to [facility]. [employer] insurance authorization received today and valid through Thursday (06/05/19). Authorization number: [id number]. Gloria from [facility] ([phone]) reported they will have an open bed for patient tomorrow (06/03). She reported she will be working over the weekend and can be contacted when patient is ready for discharge. Social Work to follow. Ryann Marcelino LMSW [phone] * Plan of Care - Gail Benavides [...] emergency??needs after 4:30 pm, please call the safety and occupational health manager . For weekend/holiday needs from 8:00a.m. -??4:30p.m., please call the Weekend Publicity Agent . * Plan of Care - Nancy [...] Marcelino MSW - 06/02/2019 4:32 PM CDT Salesperson [employer] spoke with Gloria from [facility] ([phone]). She reported they were able toaccept patient but would not have a bed available until Thursday (06/04/19). Salesperson [employer] [facility]. Social Work to follow. Ryann Marcelino LMSW [phone] * Plan of Care - Lucila Pena [...] Marcelino MSW - 06/02/2019 12:41 PM CDT Salesperson [employer] met with patient and her at bedside to discuss discharge planning. Patient's reported he would prefer her to discharge home but patient wanted to go to [facility] (SNF) at discharge. They reported they wanted to see if [facility] would be able to accept her and if not then pursue home health. Salesperson [employer] sent updates to [facility] in [employer]. Social Work to follow. ADD: 06/03/19 Ryann Marcelino LMSW [phone] * ECIN Note - Ryann Marcelino MSW [...] mobility device at baseline -TP Level of [place] Independent with ADLs;Independent functional transfers;Independent with ambulation;Independent with homemaking with ambulation -TP Lives With Spouse -TP Receives Help From Spouse/Significant other full time paramedic -TP Driving Yes -TP ADL Assistance Independent [...] 72 Hours PT Evaluation Row Name 05/30/19 0827 Chart Reviewed Yes -MH (r) JT (c) [...] None -MH (r) JT (c) Level of [place] Independent with ADLs;Independent with ambulation -MH (r) [...] summary - (r) JT (c) PT Recommendation/Plan Fpc Facility - (r) JT (c) PT Frequency [...] Comments Goals adjusted -MM Recommendation/Plan PT Recommendation/Plan Fpc Facility -MM PT Frequency 3-5x/wk -MM Treatment/Interventions [...] gtt for anticoagulation. She was transferred to [facility], where repeat labs were significant for [...] were continued and recommended continued therapy at jail facility at discharge. She has follow up [...] daily. She will follow up with her classifier operator for further management as outpatient. ?? #T2DM [...] improve by discharge 06/02/2019 0314 by Isabel Mitchell RN Outcome: [...] andhome finalized. ADD: 06/03/19 Ryann Marcelino LMSW [phone] * Plan of Care - Gail Benavides [...] needs after 4:30 pm, please call the safety and occupational health manager . For weekend/holiday needs from 8:00a.m. - 4:30p.m., please call the Weekend Publicity Agent . * Plan of Care - Suzie Sultana LCSW - 06/01/2019 9:42 AM CDT SW would like to note patient transferred from [address] [place] [address] to [facility]. Intervention/Plan: Intervention/Plan: Per chart review patient was recently discharged to [facility] [phone]. ??She left [facility] on 05/27/2019. ??SW has a prior SW [...] screened/followed for [facility] [phone] Gloria in Admissions [phone] per patient reques t. She does not want to return to [facility]. Gloria at [facility] will need to review patient and verify whether facility is in network with insurance [employer]. ?? Patient's primary contact is: Ravi [phone]. Floor SW notified of transfer. Suzie Sultana LCSW, [facility] [phone] * Plan of Care - Anna Marie Murphy RRT - 06/01/2019 3:38 AM CDT Patient is currently wearing there home cpap overnight for AYAD. Plan: For patient to continue to wear there home cpap overnight for AYAD. * Plan of Care - Shari Benntet RN - 06/01/2019 1:47 AM CDT Problem: [...] 0.11. 05/29/19 the patient was transferred to [facility] S[facility] since the orthopedic surgery was originally performed at [facility]. An amiodarone gtt was started and she [...] test: 05/30/2019 Type of test: TTE w/Doppler [facility] #: [id number] Date of : 1940 (F) Manager Business Development Hospice: Roxanne Werner RDCS Referring Physician: LEILA ANDRE MD Contrast Agent: 1.1 ml Optison Administered, (1.9 ml wasted). Contrast Administered by: charlotte rn Supervised/Interpreted by: Garcia Cline MD. Diagnosis: Location: [facility] Reason for test: Atrial fibrillation (AF) or [...] 2=Hypo 3=Akinetic 4=Dyskin./Aneurysm 0=Not visualized) Parasternal Long [place]:MAS=2 BAS=2 MP=2 BP=2 Parasternal Short [place]:MAS=2 MS=2 NM=2 MP=2 ML=2 MA=2 Apical 4 Chambers:=2 MS=2 BS=2 BL=2 NM=2 AL=2 Apical 2 Chambers:AI=2 NM=2 BI=2 BA=2 MA=2 AA=2 LV Global Longitudinal [...] MD. By signing this report, the attending classifier operator certifies that he or she has [...] US Vein Duplex Lower Extremity Bilateral Complete [facility] - Department of Vascular Surgery, Vascular Laboratory [address] [place], [place] [id number] Lower Extremity Venous Ultrasound Report ---Preliminary--- Patient Name: PREMA HODGSON A : 1940 (79y 3m) Study Date: 05/30/2019 9:31:52 AM Gender: F Tech: Location: [id number] Ref.Provider: KEANU HWANG Quality: Adequate Order Provider: [...] embolism without acute cor pulmonale. Findings: Performing Manager Business Development Hospice: Ingrid Herman RVT. Right: Duplex scan reveals [...] doing well, transition anticoagulation from heparin to fdc therapy. Typically, recommended treatment provoked peripheral PEs [...] patient's medical record. Sincerely, Jennifer Lehman RN, [facility] Health Information Management * Provider Query - [...] patient???s medical record. Sincerely, Jennifer Lehman RN, [facility] Health Information Management * Plan of Care [...] Adkins of the Medicine service. QUESTIONS? Call [phone] Cosigned by Miguel Centeno MD PhD at 05/31/2019 6:13 PM CDT * ECIN Note - Suzie Sultana WEB SOLUTIONS ARCHITECT - 05/31/2019 4:53 PM CDT Images from [...] mobility device at baseline -TP Level of [place] Independent with ADLs;Independent functional transfers;Independent with ambulation;Independent with homemaking with ambulation -TP Lives With Spouse -TP Receives Help From Spouse/Significant other full time paramedic -TP Driving Yes -TP ADL Assistance Independent [...] None -MH (r) JT (c) Level of [place] Independent with ADLs;Independent with ambulation -MH (r) [...] summary - (r) JT (c) PT Recommendation/Plan Fpc Facility - (r) JT (c) PT Frequency [...] Notes signed by Val Warner, PT , CHEF ASSISTANT Eval and Treat Last 72 Hours CHEF ASSISTANT Evaluation No documentation. CHEF ASSISTANT Treatment No documentation. Clinical Swallow Study No documentation. CHEF ASSISTANT Notes (Notes from 05/29/19 through 05/31/19) No [...] None Principal Problem: Atrial fibrillation with RVR ([facility]) [I48.91] Intake/Output 05/29/19 0700 - 05/30/19 0659 05/30/19 0700 - 05/31/19 0659 05/31/19 0700 - 06/01/19 0659 Total [id number] 7739-9202 0020-3098 Total 9503-4871 7964-3836 6762-0899 Total Intake (ml) 821.4 335 473.8 930.2 1739 410 300 -- 710 Output (ml) 910 098 931 0738 2500 435 -- -- 435 Net (ml) [...] patient discussed in DCAM rounds by team. Salesperson [employer] remains involved for discharge planning and placement needs. Intervention/Plan: Per chart review patient was recently discharged to [facility] [phone]. She left [facility] on 05/27/2019. SW has a prior SW assessment in chart from 05/26/2019 by RADIOISOTOPE PRODUCTION OPERATOR Dolores Florez. ?? Patient will be screened [...] screened/followed for potential admission when appropriate by: [facility] [place] S [phone] Gloria in Admissions [phone] per patient reques t. She does not want to return to [facility]. Gloria at [facility] will need to review patient and verify whether facility is in network with insurance [employer]. Patient's primary contact is: Ravi [phone]. Goal: Salesperson [employer] to continue to follow for discharge planning assistance, formation of a safe discharge plan, and emotional support for family as needed. Suzie Sultana, [facility] [phone] * Plan of Care - Britney Pathak [...] rounds by team. Amiodarone & heparin gtt. Salesperson [employer] consult for discharge planning and possible placement assistance education noted. Patient is unable to participate in education at this time--was getting care. Intervention/Plan: Per chart review patient was recently discharged to [facility] [phone]. She left [facility] on 05/27/2019. Sw has a prior SW [...] guidance from team and therapy recommendations. Goal: Salesperson [employer] to continue to follow for discharge planning assistance, formation of a safe discharge plan, and emotional support for family as needed. Suzie Sultana, [facility] [phone] * Plan of Care - Britney Pathak [...] and heparin gtt. Patient recently discharge to [facility].Consult placed to SW. ADD 1 week. CM to follow for d/c planning and referrals as needed. If needed,please contact For emergency needs from 4:31pm-7:59am, please call the safety and occupational health manager . For weekend/holiday needs from 8am-430pm, please call the Weekend Publicity Agent . * Significant Event - Endy Elliott MD - 05/30/2019 1:04 PM CDT Medicine Transfer Acceptance Note Prema Hodgson has been accepted for transfer to [facility]. I have talked to patient [...] -> 0.110. [facility] [place] [facility] on 05/28. She was started on [...] 8:03 AM CDT Atrial fibrillation with RVR ([facility]) POCT GLUCOSE DEVICE Routine 05/31/2019 7 :40 [...] * POCT glucose (06/05/2019 11:39 AM CDT) [facility] Signature Glucose, POC 179 70 - 199 mg/dL [facility] Blood specimen (specimen) 06/05/2019 11:39 AM CDT 06/05/2019 11:39 AM CDT us Alessandro Erazo MD LAB POCT ORDERABLES - DEVICE Fi nal Result [facility] One [facility] [place] [address] * POCT glucose (06/05/2019 7:38 AM CDT) Glucose, POC 150 70 - 199 mg/dL [facility] Blood specimen (specimen) 06/05/2019 7:38 AM CDT 06/05/2019 7:38 AM CDT Alessandro Erazo MD LAB POCT ORDERABLES - DEVICE Fi nal Result [facility] One [facility] [place] [address] * (ABNORMAL) Basic metabolic panel (06/04/2019 8:51 PM CDT) [facility] Sodium 132(L) 135 - 145 mmol/L [facility] Potassium, pl 3.8 3.3 - 4.9 mmol/L [facility] Chloride 100 97 - 110 mmol/L [facility] CO2 24 22 - 32 mmol/L [facility] Anion gap 8 2 - 15 mmol/L [facility] BUN 15 8 - 25 mg/dL [facility] Creatinine 0.65 0.60 - 1.10 mg/dL [facility] [...] 2017. Calcium 8.5 8.5 - 10.3 mg/dL [facility] Blood specimen (specimen) 06/04/2019 8:51 PM CDT 06/04/2019 9:01 PM CDT Alessandro Erazo MD LAB BLOOD ORDERABLES Final Resu lt [facility] [place] [address] * (ABNORMAL) CBC without differential (06/04/2019 8:51 PM CDT) Pathologist [facility] WBC 7.5 3.8 - 9.9 K/cumm [facility] Hgb 7.7(L) 11.9 - 15.5 g/dL [facility] Hct 25.8(L) 35.6 - 45.5 % [facility] Plt 389 150 - 400 K/cumm [facility] MPV 10.3 9.1 - 12.3 fL [facility] RBC 2.59(L) 3.90 - 5.20 M/cumm [facility] MCV 99.6(H) 81.3 - 96.4 fL [facility] MCH 29.7 27.1 - 33.3 pg [facility] MCHC 29.8(L) 32.3 - 35.7 g/dL [facility] RDW CV 16.5(H) 11.1 - 14.9 % [facility] RDW SD 58.5(H) 35.7 - 48.1 fL [facility] NRBC abs 0.04(H) 0.00 - 0.01 K/cumm [facility] Blood specimen (specimen) 06/04/2019 8:51 PM CDT 06/04/2019 9:01 PM CDT Alessandro Erazo MD LAB BLOOD ORDERABLES Final Resu lt [facility] [place] [address] * (ABNORMAL) Protime-INR (06/04/2019 8:51 PM CDT) Pathologist [facility] PT 21.5(H) 8.6 - 13.0 sec [facility] INR 2.0(H) 0.8 - 1.2 [facility] Comment: [...] Resu lt Performing Organization Address [facility] Co de Phone Number [facility] [place] [address] * (ABNORMAL) POCT glucose (06/04/2019 8:03 PM CDT) Glucose, POC 240(H) 70 - 199 mg/dL [facility] Blood specimen (specimen) 06/04/2019 8:03 PM CDT 06/04/2019 8:03 PM CDT Result [facility] Alessandro Erazo MD LAB POCT ORDERABLES - DEVICE Fi nal Result Performing Organization Address [facility] de Phone Number [facility] [place] [address] * POCT glucose (06/04/2019 5:17 PM CDT) Glucose, POC 150 70 - 199 mg/dL [facility] Blood specimen (specimen) 06/04/2019 5:17 PM CDT 06/04/2019 5:17 PM CDT Alessandro Erazo MD LAB POCT ORDERABLES - DEVICE Fi nal Result Performing Organization Address [facility] Co de Phone Number [facility] [place] [address] * (ABNORMAL) POCT glucose (06/04/2019 11:18 AM CDT) Glucose, POC 211(H) 70 - 199 mg/dL [facility] Blood specimen (specimen) 06/04/2019 11:18 AM CDT 06/04/2019 11:18 AM CDT Alessandro Erazo MD LAB POCT ORDERABLES - DEVICE Fi nal Result Performing Organization Address [facility] Co de Phone Number [facility] Department [place] [address] * POCT glucose (06/04/2019 7:44 AM CDT) [facility] Glucose, POC 148 70 - 199 mg/dL [facility] Blood specimen (specimen) 06/04/2019 7:44 AM CDT 06/04/2019 7:44 AM CDT Alessandro Erazo MD LAB POCT ORDERABLES - DEVICE Fi nal Result Performing Organization Address [facility] de Phone Number [facility] [place] [address] * (ABNORMAL) Basic metabolic panel (06/03/2019 10:17 PM CDT) [facility] Sodium 134(L) 135 - 145 mmol/L [facility] Potassium, pl 3.7 3.3 - 4.9 mmol/L [facility] Chloride 100 97 - 110 mmol/L [facility] CO2 28 22 - 32 mmol/L [facility] Anion gap 6 2 - 15 mmol/L [facility] BUN 14 8 - 25 mg/dL [facility] Creatinine 0.58(L) 0.60 - 1.10 mg/dL [facility] Glucose 148 70 - 199 mg/dL [facility] [...] mg/dL [facility] Blood specimen (specimen) 06/03/2019 10:17 PM CDT 06/03/2019 10:33 PM CDT us Alessandro Erazo MD LAB BLOOD ORDERABLES Final Resu lt [facility] One [facility] [place] [address] * (ABNORMAL) CBC without differential (06/03/2019 10:17 PM CDT) WBC 9.0 3.8 - 9.9 K/cumm [facility] Hgb 7.7(L) 11.9 - 15.5 g/dL [facility] Hct 25.2(L) 35.6 - 45.5 % [facility] Plt 398 150 - 400 K/cumm [facility] MPV 10.5 9.1 - 12.3 fL [facility] RBC 2.54(L) 3.90 - 5.20 M/cumm [facility] MCV 99.2(H) 81.3 - 96.4 fL [facility] MCH 30.3 27.1 - 33.3 pg [facility] MCHC 30.6(L) 32.3 - 35.7 g/dL [facility] RDW CV 16.4(H) 11.1 - 14.9 % [facility] RDW SD 58.0(H) 35.7 - 48.1 fL [facility] NRBC abs 0.06(H) 0.00 - 0.01 K/cumm [facility] Blood specimen (specimen) 06/03/2019 10:17 PM CDT 06/03/2019 10:33 PM CDT Alessandro Erazo MD LAB BLOOD ORDERABLES Final Resu lt Performing Organization Address [facility] Co de Phone Number [facility] [place] [address] * (ABNORMAL) Protime-INR (06/03/2019 10:17 PM CDT) PT 22.0(H) 8.6 - 13.0 sec [facility] INR 2.0(H) 0.8 - 1.2 [facility] Comment: [...] Resu lt Performing Organization Address [facility] de Phone Number [facility] [place] [address] * (ABNORMAL) aPTT (06/03/2019 10:17 PM CDT) aPTT 84(H) 25 - 37 sec [facility] Comment: Interpretive data Heparin therapeutic range: 60-90 seconds Range based on correlation with therapeutic heparin activity range of 0.3-0.7 units/ml. Current interpretive data was last revised on 2019. Blood specimen (specimen) 06/03/2019 10:17 PM CDT 06/03/2019 10:27 PM CDT Alessandro Erazo MD LAB BLOOD ORDERABLES Final Resu lt Performing Organization Address [facility] Co de Phone Number [facility] [place] [address] * (ABNORMAL) POCT glucose (06/03/2019 8:05 PM CDT) Glucose, POC 215(H) 70 - 199 mg/dL [facility] Blood specimen (specimen) 06/03/2019 8:05 PM CDT 06/03/2019 8:05 PM CDT Alessandro Erazo MD LAB POCT ORDERABLES - DEVICE Fi nal Result Performing Organization Address [facility]/[place] [address] * POCT glucose (06/03/2019 4:36 PM CDT) Glucose, POC 157 70 - 199 mg/dL [facility] Blood specimen (specimen) 06/03/2019 4:36 PM CDT 06/03/2019 4:36 PM CDT Alessandro Erazo MD LAB POCT ORDERABLES - DEVICE Fi nal Result Performing Organization Address [facility]/[place] [address] * POCT glucose (06/03/2019 11:31 AM CDT) Glucose, POC 154 70 - 199 mg/dL [facility] Blood specimen (specimen) 06/03/2019 11:31 AM CDT 06/03/2019 11:31 AM CDT Alessandro Erazo MD LAB POCT ORDERABLES - DEVICE Fi nal Result Performing Organization Address [facility]/[place] [address] * POCT glucose (06/03/2019 7:39 AM CDT) [facility] Glucose, POC 161 70 - 199 mg/dL [facility] Blood specimen (specimen) 06/03/2019 7:39 AM CDT 06/03/2019 7:39 AM CDT Alessandro Erazo MD LAB POCT ORDERABLES - DEVICE Fi nal Result Performing Organization Address [facility]/ZIP Co de Phone Number [facility] Department [place] [address] * (ABNORMAL) CBC without differential (06/02/2019 11:04 PM CDT) [facility] WBC 11.3(H) 3.8 - 9.9 K/cumm [facility] Hgb 8.3(L) 11.9 - 15.5 g/dL [facility] Hct 26.5(L) 35.6 - 45.5 % [facility] Plt 414(H) 150 - 400 K/cumm [facility] MPV 10.7 9.1 - 12.3 fL [facility] RBC 2.68(L) 3.90 - 5.20 M/cumm [facility] MCV 98.9(H) 81.3 - 96.4 fL [facility] MCH 31.0 27.1 - 33.3 pg [facility] MCHC 31.3(L) 32.3 - 35.7 g/dL [facility] RDW CV 16.4(H) 11.1 - 14.9 % [facility] RDW SD 57.2(H) 35.7 - 48.1 fL [facility] NRBC abs 0.09(H) 0.00 - 0.01 K/cumm [facility] Blood specimen (specimen) 06/02/2019 11:04 PM CDT 06/02/2019 11:32 PM CDT Alessandro Erazo MD LAB BLOOD ORDERABLES Final Resu lt [facility] [place] [address] * (ABNORMAL) Protime-INR (06/02/2019 11:04 PM CDT) Pathologist [facility] PT 20.6(H) 8.6 - 13.0 sec [facility] INR 1.9(H) 0.8 - 1.2 [facility] Comment: [...] Resu lt Performing Organization Address [facility] de Phone Number [facility] [place] [address] * (ABNORMAL) aPTT (06/02/2019 11:04 PM CDT) [facility] aPTT 89(H) 25 - 37 sec [facility] Comment: Interpretive data Heparin therapeutic range: 60-90 seconds Range based on correlation with therapeutic heparin activity range of 0.3-0.7 units/ml. Current interpretive data was last revised on 2019. Blood specimen (specimen) 06/02/2019 11:04 PM CDT 06/02/2019 11:32 PM CDT Alessandro Erazo MD LAB BLOOD ORDERABLES Final Resu lt Performing Organization Address [facility] Co de Phone Number [facility] [place] [address] * (ABNORMAL) POCT glucose (06/02/2019 8:53 PM CDT) Pathologist [facility] Glucose, POC 200(H) 70 - 199 mg/dL [facility] Blood specimen (specimen) 06/02/2019 8:53 PM CDT 06/02/2019 8:53 PM CDT Alessandro Erazo MD LAB POCT ORDERABLES - DEVICE Fi nal Result Performing Organization Address [facility] Co de Phone Number [facility] [place] [address] * POCT glucose (06/02/2019 4:38 PM CDT) Glucose, POC 168 70 - 199 mg/dL [facility] Blood specimen (specimen) 06/02/2019 4:38 PM CDT 06/02/2019 4:38 PM CDT Alessandro Erazo MD LAB POCT ORDERABLES - DEVICE Fi nal Result Performing Organization Address [facility] de Phone Number [facility] [place] [address] * POCT glucose (06/02/2019 11:20 AM CDT) Glucose, POC 173 70 - 199 mg/dL [facility] Blood specimen (specimen) 06/02/2019 11:20 AM CDT 06/02/2019 11:20 AM CDT Alessandro Erazo MD LAB POCT ORDERABLES - DEVICE Fi nal Result Performing Organization Address [facility] [place] [address] * POCT glucose (06/02/2019 7:29 AM CDT) Glucose, POC 156 70 - 199 mg/dL [facility] Blood specimen (specimen) 06/02/2019 7:29 AM CDT 06/02/2019 7:29 AM CDT Alessandro Erazo MD LAB POCT ORDERABLES - DEVICE Fi nal Result Performing Organization Address [facility]/ZIP Co de Phone Number [facility] Department [place] [address] * (ABNORMAL) POCT glucose (06/01/2019 8:20 PM CDT) Glucose, POC 204(H) 70 - 199 mg/dL [facility] Blood specimen (specimen) 06/01/2019 8:20 PM CDT 06/01/2019 8:20 PM CDT Alessandro Erazo MD LAB POCT ORDERABLES - DEVICE Fi nal Result Performing Organization Address [facility] de Phone Number [facility] [place] [address] * (ABNORMAL) Basic metabolic panel (06/01/2019 8:08 PM CDT) Pathologist [facility] Sodium 134(L) 135 - 145 mmol/L [facility] Potassium, pl 3.1(L) 3.3 - 4.9 mmol/L [facility] Chloride 98 97 - 110 mmol/L [facility] CO2 28 22 - 32 mmol/L [facility] Anion gap 8 2 - 15 mmol/L [facility] BUN 18 8 - 25 mg/dL [facility] Creatinine 0.62 0.60 - 1.10 mg/dL [facility] Glucose 189 70 - 199 mg/dL [facility] [...] 2017. Calcium 8.5 8.5 - 10.3 mg/dL [facility] Blood specimen (specimen) 06/01/2019 8:08 PM CDT 06/01/2019 8:35 PM CDT Roc Spencer MD LAB BLOOD ORDERABLES Final Resu lt Performing Organization Address [facility] Co de Phone Number [facility] [place] [address] * (ABNORMAL) CBC without differential (06/01/2019 8:08 PM CDT) WBC 9.7 3.8 - 9.9 K/cumm [facility] Hgb 8.2(L) 11.9 - 15.5 g/dL [facility] Hct 26.9(L) 35.6 - 45.5 % [facility] Plt 371 150 - 400 K/cumm [facility] MPV 10.6 9.1 - 12.3 fL [facility] RBC 2.74(L) 3.90 - 5.20 M/cumm [facility] MCV 98.2(H) 81.3 - 96.4 fL [facility] MCH 29.9 27.1 - 33.3 pg [facility] MCHC 30.5(L) 32.3 - 35.7 g/dL [facility] RDW CV 16.1(H) 11.1 - 14.9 % [facility] RDW SD 55.6(H) 35.7 - 48.1 fL [facility] NRBC abs 0.10(H) 0.00 - 0.01 K/cumm [facility] Blood specimen (specimen) 06/01/2019 8:08 PM CDT 06/01/2019 8:35 PM CDT us Alessandro Erazo MD LAB BLOOD ORDERABLES Final Resu lt Performing Organization Address [facility]/ZIP Co de Phone Number [facility] [place] [address] * (ABNORMAL) Protime-INR (06/01/2019 8:08 PM CDT) PT 19.6(H) 8.6 - 13.0 sec [facility] INR 1.8(H) 0.8 - 1.2 [facility] Comment: [...] BLOOD ORDERABLES Final Resu Performing Organization Address [facility] de Phone Number [facility] [place] [address] * (ABNORMAL) aPTT (06/01/2019 8:08 PM CDT) Pathologist [facility] aPTT 76(H) 25 - 37 sec [facility] Comment: Interpretive data Heparin therapeutic range: 60-90 seconds Range based on correlation with therapeutic heparin activity range of 0.3-0.7 units/ml. Current interpretive data was last revised on 2019. Blood specimen (specimen) 06/01/2019 8:08 PM CDT 06/01/2019 8:26 PM CDT Alessandro Erazo MD LAB BLOOD ORDERABLES Final Resu Performing Organization Address [facility] Co de Phone Number [facility] [place] [address] * POCT glucose (06/01/2019 4:51 PM CDT) Glucose, POC 152 70 - 199 mg/dL [facility] Blood specimen (specimen) 06/01/2019 4:51 PM CDT 06/01/2019 4:51 PM CDT Result [facility] Alessandro Erazo MD LAB POCT ORDERABLES - DEVICE Fi nal Result Performing Organization Address [facility] de Phone Number [facility] [place] [address] * POCT glucose (06/01/2019 11:28 AM CDT) Glucose, POC 183 70 - 199 mg/dL [facility] Blood specimen (specimen) 06/01/2019 11:28 AM CDT 06/01/2019 11:28 AM CDT Result [facility] Alessandro Erazo MD LAB POCT ORDERABLES - DEVICE Fi nal Result Performing Organization Address [facility] de Phone Number [facility] [place] [address] * POCT glucose (06/01/2019 7:39 AM CDT) Glucose, POC 162 70 - 199 mg/dL [facility] Blood specimen (specimen) 06/01/2019 7:39 AM CDT 06/01/2019 7:39 AM CDT Result [facility] Alessandro Erazo MD LAB POCT ORDERABLES - DEVICE Fi nal Result Performing Organization Address [facility] [place] [address] * (ABNORMAL) Lipid panel (05/31/2019 9:07 PM CDT) Cholesterol 74 30 - 199 mg/dL [facility] Comment: Interpretive Data Ages < [...] revised on 2017. Triglycerides 119 <=149 mg/dL [facility] Comment: Interpretive Data Ages < [...] on 2017. HDL 21(L) >=40 mg/dL [facility] Comment: Interpretive Data Ages < or = [...] 2017. LDL, calculated 29 <=129 mg/dL [facility] Comment: Interpretive Data Ages < or = [...] revised on 2017. Non-HDL Cholesterol 53 mg/dL [facility] Comment: Interpretive Data Ages < or = [...] revised on 2017. Chol/HDL ratio 4 [facility] Blood specimen (specimen) 05/31/2019 9:07 PM CDT 05/31/2019 9:46 PM CDT us Alessandro Erazo MD LAB BLOOD ORDERABLES Final Resu lt Performing Organization Address [facility] Co de Phone Number [facility] Hen[facility]ry [facility] [place] [address] * (ABNORMAL) aPTT (05/31/2019 9:07 PM CDT) aPTT 60(H) 25 - 37 sec [facility] Comment: Interpretive data Heparin therapeutic range: 60-90 seconds Range based on correlation with therapeutic heparin activity range of 0.3-0.7 units/ml. Current interpretive data was last revised on 2019. Blood specimen (specimen) 05/31/2019 9:07 PM CDT 05/31/2019 9:37 PM CDT Result [facility] Alessandro Erazo MD LAB BLOOD ORDERABLES Final Resu lt Performing Organization Address [facility] [place] [address] * (ABNORMAL) Protime-INR (05/31/2019 9:07 PM CDT) PT 17.2(H) 8.6 - 13.0 sec [facility] INR 1.6(H) 0.8 - 1.2 [facility] Comment: Interpretive data Oral anticoagulant therapeutic ranges: Venous thromboembolism prophylaxis or treatment: 2.0-3.0 CARDIOLOGY Standard range: 2.0-3.0 High-intensity range: 2.5-3.5 Refer to indication-specific guidelines for appropriate target ranges for prosthetic heart valve replacement. Current interpretive data was last revised on 2019. Blood specimen (specimen) 05/31/2019 9:07 PM CDT 05/31/2019 9:37 PM CDT Result [facility] Alessandro Erazo MD LAB BLOOD ORDERABLES Final Resu lt Performing Organization Address [facility] Co de Phone Number [facility] [place] [place] [address] * Magnesium (05/31/2019 9:07 PM CDT) Magnesium 1.7 1.4 - 2.5 mg/dL [facility] Blood specimen (specimen) 05/31/2019 9:07 PM CDT 05/31/2019 9:46 PM CDT us Alessandro Erazo MD LAB BLOOD ORDERABLES Final Resu lt [facility] One [facility] [place] [address] * (ABNORMAL) Basic metabolic panel (05/31/2019 9:07 PM CDT) [facility] Sodium 136 135 - 145 mmol/L [facility] Potassium, pl 4.6 3.3 - 4.9 mmol/L [facility] Comment:Hemolyzed; Potassium value may be falsely elevated by as much as 0.3-0.5 mmol/L. Suggest redraw and reanalysis. Chloride 99 97 - 110 mmol/L [facility] CO2 26 22 - 32 mmol/L [facility] Anion gap 11 2 - 15 mmol/L [facility] BUN 18 8 - 25 mg/dL [facility] Creatinine 0.59(L) 0.60 - 1.10 mg/dL [facility] Glucose 148 70 - 199 mg/dL [facility] [...] 2017. Calcium 8.7 8.5 - 10.3 mg/dL [facility] Blood specimen (specimen) 05/31/2019 9:07 PM CDT 05/31/2019 9:46 PM CDT Alessandro Erazo MD LAB BLOOD ORDERABLES Final Resu lt [facility] [place] [address] * (ABNORMAL) CBC without differential (05/31/2019 9:07 PM CDT) Pathologist [facility] WBC 11.1(H) 3.8 - 9.9 K/cumm [facility] Hgb 8.6(L) 11.9 - 15.5 g/dL [facility] Hct 27.9(L) 35.6 - 45.5 % [facility] Plt 322 150 - 400 K/cumm [facility] MPV 10.8 9.1 - 12.3 fL [facility] RBC 2.78(L) 3.90 - 5.20 M/cumm [facility] MCV 100.4(H) 81.3 - 96.4 fL [facility] MCH 30.9 27.1 - 33.3 pg [facility] MCHC 30.8(L) 32.3 - 35.7 g/dL [facility] RDW CV 16.1(H) 11.1 - 14.9 % [facility] RDW SD 57.0(H) 35.7 - 48.1 fL [facility] NRBC abs 0.17(H) 0.00 - 0.01 K/cumm [facility] Blood specimen (specimen) 05/31/2019 9:07 PM CDT 05/31/2019 9:46 PM CDT Alessandro Erazo MD LAB BLOOD ORDERABLES Final Resu lt [facility] [place] [address] * POCT glucose (05/31/2019 8:53 PM CDT) Glucose, POC 155 70 - 199 mg/dL [facility] Blood specimen (specimen) 05/31/2019 8:53 PM CDT 05/31/2019 8:53 PM CDT Alessandro Erazo MD LAB POCT ORDERABLES - DEVICE Fi nal Result Performing Organization Address [facility] de Phone Number [facility] [place] [address] * POCT glucose (05/31/2019 5:15 PM CDT) Glucose, POC 168 70 - 199 mg/dL [facility] Blood specimen (specimen) 05/31/2019 5:15 PM CDT 05/31/2019 5:15 PM CDT Result [facility] Alessandro Erazo MD LAB POCT ORDERABLES - DEVICE Fi nal Result Performing Organization Address [facility] de Phone Number [facility] [place] [address] * POCT glucose (05/31/2019 11:37 AM CDT) Glucose, POC 192 70 - 199 mg/dL [facility] Blood specimen (specimen) 05/31/2019 11:37 AM CDT 05/31/2019 11:37 AM CDT Keanu Hwang MD LAB POCT ORDERABLES - DEVIC E Final Result Performing Organization Address [facility] [place] [address] * Critical Care (05/31/2019 8:03 AM CDT) [...] plan with the ICU team and other medical/regional sales consultant staff, making frequent assessments and decisions [...] Glucose, POC 180 70 - 199 mg/dL [facility] Blood specimen (specimen) 05/31/2019 7:40 AM CDT 05/31/2019 7:40 AM CDT Keanu Hwang MD LAB POCT ORDERABLES - DEVIC E Final Result [facility] One [facility] Department [place] [address] * POCT glucose (05/31/2019 3:08 AM CDT) Glucose, POC 178 70 - 199 mg/dL [facility] Blood specimen (specimen) 05/31/2019 3:08 AM CDT 05/31/2019 3:08 AM CDT Keanu Hwang MD LAB POCT ORDERABLES - DEVIC E Final Result Performing Organization Address [facility] de Phone Number [facility] [place] [address] * (ABNORMAL) aPTT (05/30/2019 11:59 PM CDT) Pathologist [facility] aPTT 66(H) 25 - 37 sec [facility] Comment: Interpretive data Heparin therapeutic range: 60-90 seconds Range based on correlation with therapeutic heparin activity range of 0.3-0.7 units/ml. Current interpretive data was last revised on 2019. Blood specimen (specimen) 05/30/2019 11:59 PM CDT 05/31/2019 12:09 AM CDT Leila Andre NP LAB BLOOD ORDERABLES Sri l Result Performing Organization Address [facility] de Phone Number [facility] [place] [address] * (ABNORMAL) Protime-INR (05/30/2019 11:59 PM CDT) Pathologist [facility] PT 17.1(H) 8.6 - 13.0 sec [facility] INR 1.6(H) 0.8 - 1.2 [facility] Comment: Interpretive data Oral anticoagulant therapeutic ranges: Venous thromboembolism prophylaxis or treatment: 2.0-3.0 CARDIOLOGY Standard range: 2.0-3.0 High-intensity range: 2.5-3.5 Refer to indication-specific guidelines for appropriate target ranges for prosthetic heart valve replacement. Current interpretive data was last revised on 2019. Blood specimen (specimen) 05/30/2019 11:59 PM CDT 05/31/2019 12:09 AM CDT Result [facility] Leila Andre NP LAB BLOOD ORDERABLES Sri l Result Performing Organization Address City/[facility] Co de Phone Number [facility] [place] [address] * POCT glucose (05/30/2019 11:41 PM CDT) Glucose, POC 162 70 - 199 mg/dL [facility] Blood specimen (specimen) 05/30/2019 11:41 PM CDT 05/30/2019 11:41 PM CDT Result [facility] Keanu Hwang MD LAB POCT ORDERABLES - DEVIC E Final Result Performing Organization Address [facility] [place] [address] * (ABNORMAL) Hemoglobin A1c (05/30/2019 9:46 PM CDT) Hgb A1C 6.5(H) 4.0 - 5.6 % [facility] Estimated Average Glucose 140 mg/dL [facility] Comment: The ADA recommends reporting an estimated Average Glucose (eAG) with all Hemoglobin A1c results using the equation derived from a study of 507 normal and diabetic adults. ??Minority populations were underrepresented and children were not included. ?? (Diabetes Care 31:1531-9468, 2008). ??The eAG is not equivalent to a fasting glucose. Blood specimen (specimen) 05/30/2019 9:46 PM CDT 05/30/2019 10:16 PM CDT Keanu Hawng MD LAB BLOOD ORDERABLES Final Result Performing Organization Address [facility] [place] [address] * Phosphorus (05/30/2019 9:46 PM CDT) Phosphorus, pl 2.7 2.3 - 4.5 mg/dL [facility] Blood specimen (specimen) 05/30/2019 9:46 PM CDT 05/30/2019 10:12 PM CDT Leila Andre WET PRESS TENDER LAB BLOOD ORDERABLES Sir l Result Performing Organization Address City/[facility] Co de Phone Number [facility] Department [place] [address] * Magnesium (05/30/2019 9:46 PM CDT) [facility] Magnesium 1.8 1.4 - 2.5 mg/dL [facility] Blood specimen (specimen) 05/30/2019 9:46 PM CDT 05/30/2019 10:12 PM CDT Leila Andre NP LAB BLOOD ORDERABLES Sri l Result Performing Organization Address [facility] de Phone Number [facility] [place] [address] * (ABNORMAL) Calcium, ionized (05/30/2019 9:46 PM CDT) [facility] Calcium, Ionized 4.25(L) 4.50 - 5.10 mg/dL [facility] Blood specimen (specimen) 05/30/2019 9:46 PM CDT 05/30/2019 9:54 PM CDT Leila Andre WET PRESS TENDER LAB BLOOD ORDERABLES Sri l Result Performing Organization Address [facility] de Phone Number [facility] [place] [address] * (ABNORMAL) Basic metabolic panel (05/30/2019 9:46 PM CDT) Pathologist [facility] Sodium 132(L) 135 - 145 mmol/L [facility] Potassium, pl 3.6 3.3 - 4.9 mmol/L [facility] Chloride 97 97 - 110 mmol/L [facility] CO2 25 22 - 32 mmol/L [facility] Anion gap 10 2 - 15 mmol/L [facility] BUN 19 8 - 25 mg/dL [facility] Creatinine 0.58(L) 0.60 - 1.10 mg/dL [facility] Glucose 157 70 - 199 mg/dL [facility] [...] 2017. Calcium 8.5 8.5 - 10.3 mg/dL [facility] Blood specimen (specimen) 05/30/2019 9:46 PM CDT 05/30/2019 10:12 PM CDT Leila Andre WET PRESS TENDER LAB BLOOD ORDERABLES Sri davalos Result [facility] One [facility] [place] [address] * (ABNORMAL) CBC without differential (05/30/2019 9:46 PM CDT) WBC 10.3(H) 3.8 - 9.9 K/cumm [facility] Hgb 8.4(L) 11.9 - 15.5 g/dL [facility] Hct 26.9(L) 35.6 - 45.5 % [facility] Plt 338 150 - 400 K/cumm [facility] MPV 10.4 9.1 - 12.3 fL [facility] RBC 2.73(L) 3.90 - 5.20 M/cumm [facility] MCV 98.5(H) 81.3 - 96.4 fL [facility] MCH 30.8 27.1 - 33.3 pg [facility] MCHC 31.2(L) 32.3 - 35.7 g/dL [facility] RDW CV 15.9(H) 11.1 - 14.9 % [facility] RDW SD 54.7(H) 35.7 - 48.1 fL [facility] NRBC abs 0.12(H) 0.00 - 0.01 K/cumm [facility] Blood specimen (specimen) 05/30/2019 9:46 PM CDT 05/30/2019 10:13 PM CDT Narrative [facility] - 05/30/2019 10:20 PM CDT Until heparin is discontinued. Keanu Hwang MD LAB BLOOD ORDERABLES Final Result Performing Organization Address City/[facility]/ZIP Co de Phone Number [facility] [place] [address] * POCT glucose (05/30/2019 7:03 PM CDT) Pathologist [facility] Glucose, POC 164 70 - 199 mg/dL [facility] Blood specimen (specimen) 05/30/2019 7:03 PM CDT 05/30/2019 7:03 PM CDT Keanu Hwang MD LAB POCT ORDERABLES - DEVIC E Final Result [facility] [place] [address] * (ABNORMAL) aPTT (05/30/2019 5:44 PM CDT) aPTT 64(H) 25 - 37 sec [facility] Comment: Interpretive data Heparin therapeutic range: 60-90 seconds Range based on correlation with therapeutic heparin activity range of 0.3-0.7 units/ml. Current interpretive data was last revised on 2019. Blood specimen (specimen) 05/30/2019 5:44 PM CDT 05/30/2019 5:48 PM CDT Narrative [facility] - 05/30/2019 6:25 PM CDT Draw STAT PTT 6 hrs after initial heparin bolus, after each rate change, and every 6 hours until 2 consecutive PTTs are within therapeutic range. Once two consecutive PTT's are therapeutic (60-94.9 seconds), then draw PTT every AM until heparin is discontinued. 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 Contrast Administered by: charlotte velasco Supervised/Interpreted by: Garcia Cline MD. Diagnosis: Location: [facility] Reason for test: Atrial fibrillation (AF) or [...] 2=Hypo 3=Akinetic 4=Dyskin./Aneurysm 0=Not visualized) Parasternal Long [place]:MAS=2 BAS=2 MP=2 BP=2 Parasternal Short [place]:MAS=2 MS=2 NM=2 MP=2 ML=2 MA=2 Apical 4 Chambers:=2 MS=2 BS=2 BL=2 NM=2 AL=2 Apical 2 Chambers:AI=2 NM=2 BI=2 BA=2 MA=2 AA=2 LV Global Longitudinal [...] MD. By signing this report, the attending classifier operator certifies that he or she has personally supervised and interpreted the echocardiogram and has reviewed and or edited and agrees with the written comments contained within the report. Procedure Note Garcia Cline MD - 05/30/2019 Patient name: Prema Hodgson Date of test: 05/30/2019 Type of test: [facility] #: [id number] Date of : 1940 (F) Manager Business Development Hospice: Roxanne Werner [facility] Referring Physician: ELILA ANDRE MD Contrast Agent: 1.1 ml Optison Administered, (1.9 ml wasted). Contrast Administered by: charlotte velasco Supervised/Interpreted by: Garcia Cline MD. Diagnosis: Location: [facility] Reason for test: Atrial fibrillation (AF) or [...] 2=Hypo 3=Akinetic 4=Dyskin./Aneurysm 0=Not visualized) Parasternal Long [place]:MAS=2 BAS=2 MP=2 BP=2 Parasternal Short [place]:MAS=2 MS=2 NM=2 MP=2 ML=2 MA=2 Apical 4 Chambers:=2 MS=2 BS=2 BL=2 NM=2 AL=2 Apical 2 Chambers:AI=2 NM=2 BI=2 BA=2 MA=2 AA=2 LV Global Longitudinal [...] MD. By signing this report, the attending classifier operator certifies that he or she has personally supervised and interpreted the echocardiogram and has reviewed and or edited and agrees with the written comments contained within the report. Keanu Hwang MD CV ECHO PROCEDURES Final Re sult * POCT glucose (05/30/2019 3:38 PM CDT) Glucose, POC 190 70 - 199 mg/dL [facility] Blood specimen (specimen) 05/30/2019 3:38 PM CDT 05/30/2019 3:38 PM CDT Keanu Hwang MD LAB POCT ORDERABLES - DEVIC E Final Result [facility] One [facility] [place] [address] * XR Chest 1 View (05/30/2019 1:05 [...] Tommy Dennison M.D. us Leila Benitez Burtaber WET PRESS TENDER IMG XR PROCEDURES Final R esult * [...] plan with the ICU team and other medical/regional sales consultant staff, making frequent assessments and decisions [...] Glucose, POC 233(H) 70 - 199 mg/dL [facility] Glucose comment 1 RN Notified [facility] Blood specimen (specimen) 05/30/2019 11:26 AM CDT 05/30/2019 11:26 AM CDT Keanu Hwang MD LAB POCT ORDERABLES - DEVIC E Final Result Performing Organization Address City/State/[facility] Co de Phone Number [facility] One [facility] Department [place] [address] * US Vein Duplex Lower Extremity Bilateral Complete (05/30/2019 10:44 AM CDT) Anatomical Region Laterality Modality Vascular Bilateral Ultrasound 05/30/2019 9:31 AM CDT Narrative 06/02/2019 3:21 PM CDT [facility] - Department of Vascular Surgery, Vascular Laboratory [address] [place] [address] Lower Extremity Venous Ultrasound Report Patient Name: PREMA HODGSON A : [birth year] (79y 3m) Study Date: 05/30/2019 9:31:52 AM Gender: F Tech: Location: [id number] Ref.Provider: KEANU HWANG Quality: Adequate Order Provider: [...] embolism without acute cor pulmonale. Findings: Performing Manager Business Development Hospice: Ingrid Herman RVT. Right: Duplex scan reveals [...] performed. Electronically Signed By: Emile Zavaleta MD [facility] [phone] 2019-06-02 15:21:38 CDT CC: CC: Procedure Note Emile Zavaleta MD - 06/02/2019 [facility] - Department of Vascular Surgery,Vascular Laboratory [address] [place] [address] Lower Extremity Venous Ultrasound Report Patient Name: PREMA HODGSON A : 1940 (79y 3m) Study Date: 05/30/2019 9:31:52 AM Gender: F Tech: Location: [id number] Ref.Provider: KEANU HWANG Quality: Adequate Order Provider: KEANU HWANG Procedures: Vascular Report: Venous Duplex imaging was performed bilaterally in the lower extremities.The common femoral, femoral, popliteal, posterior tibial, peroneal veins wereevaluated for patency, spontaneity and phasicity with Doppler, compression and augmentationmaneuvers. Great saphenous vein proximal at the junction was evaluated with compressionmaneuvers. Indications: Other pulmonary embolism without acute cor pulmonale. Findings: Performing Manager Business Development Hospice: Ingrid Herman RVT. Right: Duplex scan reveals [...] bandaging. Provider Notification: Results called to Dr Alvaerz. Time called 10:30am. Conclusions: 1. There is [...] performed. Electronically Signed By: Emile Zavaleta MD [facility] [phone] 2019-06-02 15:21:38 CDT CC: CC: us Keanu Hwang MD IM US PROCEDURES Final Res ult * (ABNORMAL) aPTT (05/30/2019 10:26 AM CDT) aPTT 55(H) 25 - 37 sec [facility] Comment: Interpretive data Heparin therapeutic range: 60-90 seconds Range based on correlation with therapeutic heparin activity range of 0.3-0.7 units/ml. Current interpretive data was last revised on 2019. Blood specimen (specimen) 05/30/2019 10:26 AM CDT 05/30/2019 10:32 AM CDT Narrative [facility] - 05/30/2019 10:56 AM CDT Draw STAT PTT 6 hrs after initial heparin bolus, after each rate change, and every 6 hours until 2 consecutive PTTs are within therapeutic range. Once two consecutive PTT's are therapeutic (60-94.9 seconds), then draw PTT every AM until heparin is discontinued. Alessandro Erazo MD LAB BLOOD ORDERABLES Final Resu lt Performing Organization Address [facility] Co de Phone Number [facility] [place] [address] * POCT glucose (05/30/2019 7:33 AM CDT) Glucose, POC 163 70 - 199 mg/dL [facility] Blood specimen (specimen) 05/30/2019 7:33 AM CDT 05/30/2019 7:33 AM CDT Keanu Hwang MD LAB POCT ORDERABLES - DEVIC E Final Result Performing Organization Address [facility] Co de Phone Number [facility] [place] [address] * (ABNORMAL) aPTT (05/30/2019 4:48 AM CDT) aPTT 63(H) 25 - 37 sec [facility] Comment: Interpretive data Heparin therapeutic range: 60-90 seconds Range based on correlation with therapeutic heparin activity range of 0.3-0.7 units/ml. Current interpretive data was last revised on 2019. Blood specimen (specimen) 05/30/2019 4:48 AM CDT 05/30/2019 4:56 AM CDT Narrative [facility] - 05/30/2019 5:20 AM CDT Draw STAT PTT 6 hrs after initial heparin bolus, after each rate change, and every 6 hours until 2 consecutive PTTs are within therapeutic range. Once two consecutive PTT's are therapeutic (60-94.9 seconds), then draw PTT every AM until heparin is discontinued. Alessandro Erazo MD LAB BLOOD ORDERABLES Final Resu lt Performing Organization Address [facility] Co de Phone Number [facility] Department [place] [address] * (ABNORMAL) Troponin I (05/30/2019 3:19 AM CDT) [facility] Troponin I 0.08(H) 0.00 - 0.03 ng/mL [facility] Comment: Interpretive Data: Normal plasma Troponin [...] for Troponin assay. References: 1. Clin Chem 2013;59:8887-6546 2. Journal of the [place] [employer] 2012;60:1581-98 Current Interpretive Data Last Revised Date: 2017. Blood specimen (specimen) 05/30/2019 3:19 AM CDT 05/30/2019 3:27 AM CDT Keanu Hwang MD LAB BLOOD ORDERABLES Final Result Performing Organization Address [facility] Co de Phone Number [facility] Department [place] [address] * POCT glucose (05/30/2019 3:09 AM CDT) Pathologist [facility] Glucose, POC 176 70 - 199 mg/dL [facility] Blood specimen (specimen) 05/30/2019 3:09 AM CDT 05/30/2019 3:09 AM CDT Keanu Hwang MD LAB POCT ORDERABLES - DEVIC E Final Result Performing Organization Address City/[facility] Co de Phone Number [facility] [place] [address] * (ABNORMAL) POCT glucose (05/30/2019 12:30 AM CDT) Glucose, POC 200(H) 70 - 199 mg/dL [facility] Blood specimen (specimen) 05/30/2019 12:30 AM CDT 05/30/2019 12:30 AM CDT Keanu Hwang MD LAB POCT ORDERABLES - DEVIC E Final Result Performing Organization Address [facility] de Phone Number [facility] [place] [address] * Critical Care (05/29/2019 11:23 PM CDT) [...] plan with the ICU team and other medical/regional sales consultant staff, making frequent assessments and decisions [...] 2017. Imm gran pct 0.7 % [facility] Comment: Interpretive Data Percent cell count reference [...] revised on 2017. Eosinophil pct 0.2 % [facility] Comment: Interpretive Data [...] PM CDT 05/29/2019 9:52 PM CDT Result [facility] Keanu Hwang MD LAB BLOOD ORDERABLES Final Result Performing Organization Address [facility] de Phone Number [facility] [place] [address] * (ABNORMAL) Protime-INR (05/29/2019 9:42 PM CDT) PT 17.8(H) 8.6 - 13.0 sec [facility] INR 1.6(H) 0.8 - 1.2 [facility] Comment: Interpretive data Oral anticoagulant therapeutic ranges: Venous thromboembolism prophylaxis or treatment: 2.0-3.0 CARDIOLOGY Standard range: 2.0-3.0 High-intensity range: 2.5-3.5 Refer to indication-specific guidelines for appropriate target ranges for prosthetic heart valve replacement. Current interpretive data was last revised on 2019. Blood specimen (specimen) 05/29/2019 9:42 PM CDT 05/29/2019 9:49 PM CDT Result [facility] Keanu Hwang MD LAB BLOOD ORDERABLES Final Result Performing Organization Address [facility] de Phone Number [facility] [place] [address] * (ABNORMAL) aPTT (05/29/2019 9:42 PM CDT) aPTT 103(H) 25 - 37 sec [facility] Comment: Interpretive data Heparin therapeutic range: 60-90 seconds Range based on correlation with therapeutic heparin activity range of 0.3-0.7 units/ml. Current interpretive data was last revised on 2019. Blood specimen (specimen) 05/29/2019 9:42 PM CDT 05/29/2019 9:49 PM CDT Keanu Hwang MD LAB BLOOD ORDERABLES Final Result [facility] One [facility] [place] [address] * (ABNORMAL) CBC with auto differential (05/29/2019 9:42 PM CDT) [facility] WBC 8.5 3.8 - 9.9 K/cumm [facility] Hgb 8.1(L) 11.9 - 15.5 g/dL [facility] Hct 25.6(L) 35.6 - 45.5 % [facility] Plt 268 150 - 400 K/cumm [facility] MPV 10.5 9.1 - 12.3 fL [facility] RBC 2.58(L) 3.90 - 5.20 M/cumm [facility] MCV 99.2(H) 81.3 - 96.4 fL [facility] MCH 31.4 27.1 - 33.3 pg [facility] MCHC 31.6(L) 32.3 - 35.7 g/dL [facility] RDW CV 15.5(H) 11.1 - 14.9 % [facility] RDW SD 54.6(H) 35.7 - 48.1 fL [facility] NRBC abs 0.08(H) 0.00 - 0.01 K/cumm [facility] Blood specimen (specimen) 05/29/2019 9:42 PM CDT 05/29/2019 9:52 PM CDT Keanu Hwang MD LAB BLOOD ORDERABLES Final Result [facility] [place] [address] * (ABNORMAL) Pro B-type natriuretic peptide (05/29/2019 [...] BLOOD ORDERABLES Final Result Performing Organization Address City/[facility] Co de Phone Number [facility] [place] [address] * Phosphorus (05/29/2019 9:42 PM CDT) [facility] Phosphorus, pl 3.3 2.3 - 4.5 mg/dL [facility] Blood specimen (specimen) 05/29/2019 9:42 PM CDT 05/29/2019 9:52 PM CDT Keanu Hwang MD LAB BLOOD ORDERABLES Final Result Performing Organization Address [facility] [place] [address] * Magnesium (05/29/2019 9:42 PM CDT) [facility] Magnesium 1.6 1.4 - 2.5 mg/dL [facility] Blood specimen (specimen) 05/29/2019 9:42 PM CDT 05/29/2019 9:52 PM CDT Keanu Hwang MD LAB BLOOD ORDERABLES Final Result Performing Organization Address [facility] de Phone Number [place], [place] [id number] * (ABNORMAL) Basic metabolic panel (05/29/2019 9:42 PM CDT) Pathologist [facility] Sodium 133(L) 135 - 145 mmol/L [facility] Potassium, pl 4.3 3.3 - 4.9 mmol/L [facility] Chloride 102 97 - 110 mmol/L [facility] CO2 24 22 - 32 mmol/L [facility] Anion gap 7 2 - 15 mmol/L [facility] BUN 24 8 - 25 mg/dL [facility] Creatinine 0.66 0.60 - 1.10 mg/dL [facility] Glucose 220(H) 70 - 199 mg/dL [facility] [...] mg/dL [facility] Blood specimen (specimen) 05/29/2019 9:42 PM CDT 05/29/2019 9:52 PM CDT Keanu Hwang MD LAB BLOOD ORDERABLES Final Result [facility] One [facility] [place] [address] * Infection Prevention MRSA Only (Staphylococcus aureus) Culture Nasal (05/29/2019 9:42 PM CDT) Report Final Report: Negative [facility] Nasal 05/29/2019 9:42 PM CDT 05/29/2019 9:56 PM CDT Narrative [facility] - 05/31/2019 7:17 AM CDT Testing performed by [facility] ([phone]). Keanu Hwang MD LAB MICROBIOLOGY - GENERAL ORDERABLES Final Result Performing Organization Address City/[facility]/ZIP Co de Phone Number [facility] [place] [address] * ECG 12 lead (05/29/2019 9:27 PM CDT) [facility] Ventricular Rate EKG/Min 114 BPM [facility] Atrial Rate 110 BPM [facility] QRS-Interval (MSEC) 106 ms [facility] QT-Interval (MSEC) 374 ms [facility] QTc 515 ms [facility] R [place] 74 degrees [facility] T [place] 214 degrees [facility] Diagnosis Atrial fibrillation with rapid ventricular response T wave abnormality, consider anterior ischemia Abnormal ECG When compared with ECG of 27-MAY-2019 03:54, (unconfirmed) Inverted T waves have replaced nonspecific T wave abnormality in Anterior leads Confirmed by GREGORY CLINE M.D ([id number]) on 06/08/2019 10:10:10 AM [facility] 05/29/2019 9:27 PM CDT 06/08/2019 10:10 AM CDT Keanu Hwang MD ECG ORDERABLES Final Resul t Performing Organization Address [facility] Co de Phone Number [facility] * (ABNORMAL) POCT glucose (05/29/2019 9:23 PM CDT) Glucose, POC 230(H) 70 - 199 mg/dL [facility] Blood specimen (specimen) 05/29/2019 9:23 PM CDT 05/29/2019 9:23 PM CDT Keanu Hwang MD LAB POCT ORDERABLES - DEVIC E Final Result Performing Organization Address City/[facility]/ZIP Co de Phone Number [facility] [place] [address] documented in this encounter Visit Diagnoses Diagnosis [...] 06/02/2019 10:20 PM CDT 50 mg multivit mombhadb-zqhi-SP-calcium (THERA-M) tablet 1 tablet 1 tablet, oral, [...] 2004 (Given - Provider: Kristofer Quiñonez RN) insulin lispro (HumaLOG) injection 1-5 [...] (Given - Provider: Nancy Christina RN) multivit mwlrveka-ucos-PE-calcium (THERA-M) tablet 1 tablet 1 tablet, oral, [...] 05/29/2019 documented in this encounter Care Teams Client Development Director Relationship Specialty Start Date End Date Wilber Cleaning Jr., MD [address] [place] [address] PCP - General 07/03/16 07/15/20 documented as of this encounter
--- OUTSIDE RECORDS SUMMARY | 2024-03-25 11:06 | XMS_ITS | Encounter Summary ---
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 Charles MD Status: Completed [...] Hall RN ketorolac (TORADOL) injection 15 mg [[id number]] Ordering Provider: Kaveh Charles MD Status: Dispensed [...] Hall RN HYDROmorphone (DILAUDID) injection 0.2 mg [[id number]] Ordering Provider: Kaveh Charles MD Status: Dispensed [...] RN insulin lispro (HumaLOG) injection 1-3 Units [[id number]] Ordering Provider: Yoly Medellin MD Status: Completed [...] Negron RN oxyCODONE (ROXICODONE) tablet 5 mg [[id number]] Ordering Provider: Suzie Wu MD Status: Dispensed Ordered On: 05/26/19 0530 Start: 05/26/19 0545 Dose (Remaining/Total): 5 mg (--/--) Route: oral Frequency: Every 4 hours Rate/Duration: -- / -- Timestamps Action Dose Route Other Information 05/27/19 0618 Given 5 mg oral Performed by: Denisa Galdamez RN metoprolol (LOPRESSOR) injection 5 mg [[id number]] Ordering Provider: Ryann Ribeiro MD Status: Completed [...] Problem: Open fracture of left distal femur ([facility]) [S72.402B] More... Elopement Risk Date/Time Elopement Risk User 05/22/19 0651 No risk JLH 05/22/19 0500 No risk MC Intake/Output 05/24/19 0700 - 05/25/19 0659 05/25/19 0700 - 05/26/19 0659 05/26/19 07 - 05/27/19 0659 Total Total 3970-3467 2523-2996 6943-5041 Total Intake (ml) 20 3050 -- 500 -- 500 Output (ml) 700 930 400 054 910 5524 Net (ml) -680 2120 -400 175 -475 [...] Thank you, Mary Umana RN, MSN, CCDS [phone] * Plan of Care - Moriah Hall [...] was found to be excellent. Leg length islam was confirmed. The rotation was marked. The [...] available during skin closure. Kaveh Charles M.D. Live Games Dealer, Orthopaedic Surgery * Plan of Care - [...] to follow for needs A Roberto RM [phone] For evening case management needs please contact the cardiac cath lab manager at [phone]. For weekend and holiday needs please call [phone]. * Plan of Care - Holly Leonard [...] AM CDT No yumiko hugger used. Warm [place] was used * Op Note - Cuba Castro MD - 05/22/2019 8:13 AM CDT Date of Surgery: .05/22/19 Pre-operative Diagnosis: 1. Comminuted open left distal femur fracture, type 1 Post-operative diagnosis: 1. Same as above Operative Procedure: 1. Irrigation and excisional debridement of nonviable subcutaneous tissue and bone from left distal femur fracture Attending Surgeon: Cuba Castro MD, M.Sc. Medical Office Coordinator: 1. Lina Elizabeth MD Anesthesia: General Blood [...] resulting from a laceration of a small audio visual production specialist secondary to her fracture. This was cauterized. [...] Resident - Assisting Anesthesiologist: Daryn Jaramillo MD CASH RECONCILIATION SPECIALIST: Mehul Dias CRNA Student Nurse Automotive Quality Manager: Daya Baldwin RN Political Scientist: Aurelia Pederson RN Scrub: ST [place] DATE OF SURGERY : 05/22/2019 Preoperative Diagnosis: Pre-op Diagnosis * Other type I or II open fracture of distal end of left femur, initial encounter ([facility]) [S72.496B] Postoperative Diagnosis: Post-op Diagnosis * Other type I or II open fracture of distal end of left femur, initial encounter ([facility]) [S72.752B] Procedure(s): Procedure(s) (LRB): INCISION AND DRAINAGE - [...] Berny Carrera MD - 05/21/2019 7:40 PM SALES DEVELOPMENT EXECUTIVE Associated Order(s): ECG 12 lead Procedure ECG [...] in the ED Berny Carrera MD 05/21/191939 S DEVELOPMENT EXECUTIVE * ED Pre-Arrival Note - Lina Wyatt RN - 05/21/2019 4:17 PM SALES DEVELOPMENT EXECUTIVE Pre-Arrival Note Pt accepted as Level [address] Elena, report called by RACHID Flores. Pt had a ground level fall today. - LOC. Head CT negative. Pt has a comminuted L femur fracture into the knee joint with dislocationof the knee. PMS intact. VSS at time of report. Lina Wyatt, RN S DEVELOPMENT EXECUTIVE documented in this encounter Plan [...] distal end of left femur, initial encounter ([facility]) POCT GLUCOSE DEVICE Routine 05/22/2019 6 :39 AM CDT POCT GLUCOSE DEVICE Routine 05/22/2019 4 :59 AM CDT PROTIME-INR STAT 05/22/2019 4:57 AM CDT POCT GLUCOSE DEVICE Routine 05/22/2019 1 2:39 AM SALES DEVELOPMENT EXECUTIVE B CHECK SAMPLE STAT 05/21/2019 11:48 PM SALES DEVELOPMENT EXECUTIVE POCT GLUCOSE DEVICE Routine 05/21/2019 1 1:47 PM SALES DEVELOPMENT EXECUTIVE CT KNEE LEFT WO CONTRAST ED 05/21/2019 10:21 PM SALES DEVELOPMENT EXECUTIVE NEURO CT MR OUTSIDE CONSULT ED 05/21/2019 8:41 PM SALES DEVELOPMENT EXECUTIVE CT CERVICAL SPINE WO CONTRAST ED 05/21/2019 8:29 PM SALES DEVELOPMENT EXECUTIVE XR KNEE LEFT 1 OR 2 VIEWS ED 05/21/2019 8:26 PM SALES DEVELOPMENT EXECUTIVE XR PELVIS 1 OR 2 VIEWS ED 0 8:26 PM SALES DEVELOPMENT EXECUTIVE XR FEMUR LEFT 2 OR MORE VIEWS ED 05/21/2019 8:25 PM SALES DEVELOPMENT EXECUTIVE XR CHEST 1 VIEW ED 05/21/2019 8:24 PM SALES DEVELOPMENT EXECUTIVE DIFFERENTIAL AUTO STAT 05/21/2019 7:4 3 PM SALES DEVELOPMENT EXECUTIVE CBC WITH AUTO DIFFERENTIAL STAT 05/21/2019 7:43 PM SALES DEVELOPMENT EXECUTIVE APTT STAT 05/21/2019 7:43 PM SALES DEVELOPMENT EXECUTIVE PROTIME-INR STAT 05/21/2019 7:43 PM SALES DEVELOPMENT EXECUTIVE TYPE AND SCREEN STAT 05/21/2019 7:43 PM SALES DEVELOPMENT EXECUTIVE COMPREHENSIVE METABOLIC PANEL STAT 05/21/2019 7:43 PM SALES DEVELOPMENT EXECUTIVE ECG 12-LEAD STAT 05/21/2019 7:40 PM SALES DEVELOPMENT EXECUTIVE XR TRANSFER OF OUTSIDE FILMS ED 05/21/2019 7:33 PM SALES DEVELOPMENT EXECUTIVE POCT GLUCOSE DEVICE Routine 05/21/2019 7 :27 PM SALES DEVELOPMENT EXECUTIVE documented in this encounter Results * (ABNORMAL) POCT glucose (05/27/2019 11:49 AM CDT) Glucose, POC 213(H) 70 - 199 mg/dL [facility] Blood specimen (specimen) 05/27/2019 11:49 AM CDT 05/27/2019 11:49 AM CDT Kaveh Charles MD LAB POCT ORDERABLES - [place] CE Final Result Performing Organization Address [facility] Co de Phone Number [facility] Department [place] [place] [address] * POCT glucose (05/27/2019 7:30 AM CDT) Glucose, POC 176 70 - 199 mg/dL [facility] Blood specimen (specimen) 05/27/2019 7:30 AM CDT 05/27/2019 7:30 AM CDT Kaveh Charles MD LAB POCT ORDERABLES - [place]IN[place] CE Final Result Performing Organization Address City/[facility]/ZIP Co de Phone Number [facility] [place] [address] * POCT glucose (05/27/2019 4:35 AM CDT) Glucose, POC 174 70 - 199 mg/dL [facility] Blood specimen (specimen) 05/27/2019 4:35 AM CDT 05/27/2019 4:35 AM CDT Kaveh Charles MD LAB POCT ORDERABLES - [place]IN[place] CE Final Result Performing Organization Address [facility] Co de Phone Number [facility] [place] [address] * POCT glucose (05/27/2019 1:07 AM CDT) [facility] Glucose, POC 170 70 - 199 mg/dL [facility] Blood specimen (specimen) 05/27/2019 1:07 AM CDT 05/27/2019 1:07 AM CDT Steve Garcia MD LAB POCT ORDERABLES - DEV ICE Final Result Performing Organization Address [facility] de Phone Number [facility] [place] [address] * (ABNORMAL) POCT glucose (05/26/2019 9:55 PM CDT) [facility] Glucose, POC 235(H) 70 - 199 mg/dL [facility] Blood specimen (specimen) 05/26/2019 9:55 PM CDT 05/26/2019 9:55 PM CDT Steve Garcia MD LAB POCT ORDERABLES - DEV ICE Final Result Performing Organization Address [facility] Co de Phone Number [facility] [place] [address] * Differential, auto (05/26/2019 9:52 PM CDT) [facility] Signature Neutrophil abs 5.2 1.7 - 6.5 K/cumm [facility] Imm gran abs 0.0 0.0 - 0.1 K/cumm [facility] Lymphocyte abs 1.2 0.8 - 3.3 K/cumm [facility] Monocyte abs 0.6 0.2 - 0.8 K/cumm [facility] Eosinophil abs 0.1 0.0 - 0.5 K/cumm [facility] Basophil abs 0.0 0.0 - 0.1 K/cumm [facility] Neutrophil pct 72.9 % [facility] Comment: Interpretive Data Percent cell count reference ranges are not reported, since discordance with absolute values may lead to misinterpretation of CBC data. Current Interpretive Data was last revised on 2017. Imm gran pct 0.7 % [facility] Comment: Interpretive Data Percent cell count reference ranges are not reported, since discordance with absolute values may lead to misinterpretation of CBC data. Current Interpretive Data was last revised on 2017. Lymphocyte pct 17.4 % [facility] Comment: Interpretive Data Percent cell count reference ranges are not reported, since discordance with absolute values may lead to misinterpretation of CBC data. Current Interpretive Data was last revised on 2017. Monocyte pct 7.9 % [facility] Comment: Interpretive Data Percent cell count reference ranges are not reported, since discordance with absolute values may lead to misinterpretation of CBC data. Current Interpretive Data was last revised on 2017. Eosinophil pct 1.0 % [facility] Comment: Interpretive Data Percent cell count reference ranges are not reported, since discordance with absolute values may lead to misinterpretation of CBC data. Current Interpretive Data was last revised on 2017. Basophil pct 0.1 % [facility] Comment: Interpretive Data Percent cell count reference ranges are not reported, since discordance with absolute values may lead to misinterpretation of CBC data. Current Interpretive Data was last revised on 2017. Blood specimen (specimen) 05/26/2019 9:52 PM CDT 05/26/2019 10:09 PM CDT us Kaveh Charles MD LAB BLOOD ORDERABLES Final Result [facility] Department [place] [address] * (ABNORMAL) Basic metabolic panel (05/26/2019 9:52 PM CDT) Sodium 134(L) 135 - 145 mmol/L [facility] Potassium, pl 4.2 3.3 - 4.9 mmol/L [facility] Chloride 104 97 - 110 mmol/L [facility] CO2 25 22 - 32 mmol/L [facility] Anion gap 5 2 - 15 mmol/L [facility] BUN 17 8 - 25 mg/dL [facility] Creatinine 0.45(L) 0.60 - 1.10 mg/dL [facility] Glucose 222(H) 70 - 199 mg/dL [facility] Comment: Interpretive Data Fasting glucose [...] 2017. Calcium 8.3(L) 8.5 - 10.3 mg/dL [facility] Blood specimen (specimen) 05/26/2019 9:52 PM CDT 05/26/2019 10:09 PM CDT Kaveh Charles MD LAB BLOOD ORDERABLES Final Result [facility] Department [place] [address] * (ABNORMAL) CBC with auto differential (05/26/2019 9:52 PM CDT) [facility] WBC 7.1 3.8 - 9.9 K/cumm [facility] Hgb 8.9(L) 11.9 - 15.5 g/dL [facility] Hct 27.5(L) 35.6 - 45.5 % [facility] Plt 210 150 - 400 K/cumm [facility] MPV 10.0 9.1 - 12.[address] [facility] RBC 2.80(L) 3.90 - 5.20 M/cumm [facility] MCV 98.2(H) 81.3 - 96.[address] [facility] MCH 31.8 27.1 - 33.[address] [facility] MCHC 32.4 32.3 - 35.7 g/dL [facility] RDW CV 15.2(H) 11.1 - 14.9 % [facility] RDW SD 54.1(H) 35.7 - 48.[address] [facility] NRBC abs 0.00 0.00 - 0.01 K/cumm [facility] Blood specimen (specimen) 05/26/2019 9:52 PM CDT 05/26/2019 10:09 PM CDT Kaveh Charles MD LAB BLOOD ORDERABLES Final Result Performing Organization Address [facility] de Phone Number [facility] [place] [address] * (ABNORMAL) Protime-INR (05/26/2019 9:52 PM CDT) [facility] PT 13.7(H) 8.6 - 13.[address] [facility] INR 1.3(H) 0.8 - 1.[address] [facility] Comment: Interpretive data Oral anticoagulant [...] BLOOD ORDERABLES Final Result Performing Organization Address [facility] de Phone Number [facility] [place] [address] * POCT glucose (05/26/2019 3:46 PM CDT) Glucose, POC 188 70 - 199 mg/dL [facility] Blood specimen (specimen) 05/26/2019 3:46 PM CDT 05/26/2019 3:46 PM CDT Kaveh Charles MD LAB POCT ORDERABLES - [place] CE Final Result Performing Organization Address [facility] Co de Phone Number [facility] [place] [address] * (ABNORMAL) POCT glucose (05/26/2019 11:47 AM CDT) Glucose, POC 202(H) 70 - 199 mg/dL [facility] Blood specimen (specimen) 05/26/2019 11:47 AM CDT 05/26/2019 11:47 AM CDT Kaveh Charles MD LAB POCT ORDERABLES - [place]IN[place] CE Final Result Performing Organization Address [facility] Co de Phone Number [facility] [place] [address] * (ABNORMAL) POCT glucose (05/26/2019 9:25 AM CDT) Glucose, POC 216(H) 70 - 199 mg/dL [facility] Blood specimen (specimen) 05/26/2019 9:25 AM CDT 05/26/2019 9:25 AM CDT Kaveh Charles MD LAB POCT ORDERABLES - [place]STIN[place] CE Final Result Performing Organization Address City/[facility] Co de Phone Number [facility] [place] [address] * POCT glucose (05/26/2019 6:08 AM CDT) Glucose, POC 160 70 - 199 mg/dL [facility] Blood specimen (specimen) 05/26/2019 6:08 AM CDT 05/26/2019 6:08 AM CDT Kaveh Charles MD LAB POCT ORDERABLES - [place]STIN[place] CE Final Result Performing Organization Address City/[facility]/ZIP Co de Phone Number [facility] Department [place] [address] * POCT glucose (05/25/2019 11:04 PM CDT) Pathologist [facility] Glucose, POC 174 70 - 199 mg/dL [facility] Blood specimen (specimen) 05/25/2019 11:04 PM CDT 05/25/2019 11:04 PM CDT Kaveh Charles MD LAB POCT ORDERABLES - [place]STIN[place] CE Final Result Performing Organization Address City/[facility] Co de Phone Number [facility] [place] [address] * Differential, auto (05/25/2019 10:42 PM CDT) [facility] Neutrophil abs 5.4 1.7 - 6.5 K/cumm [facility] Imm gran abs 0.0 0.0 - 0.1 K/cumm [facility] Lymphocyte abs 1.2 0.8 - 3.3 K/cumm [facility] Monocyte abs 0.7 0.2 - 0.8 K/cumm [facility] Eosinophil abs 0.0 0.0 - 0.5 K/cumm [facility] Basophil abs 0.0 0.0 - 0.1 K/cumm [facility] Neutrophil pct 73.2 % [facility] Comment: Interpretive Data Percent cell count reference ranges are not reported, since discordance with absolute values may lead to misinterpretation of CBC data. Current Interpretive Data was last revised on 2017. Imm gran pct 0.4 % [facility] Comment: Interpretive Data Percent cell count reference ranges are not reported, since discordance with absolute values may lead to misinterpretation of CBC data. Current Interpretive Data was last revised on 2017. Lymphocyte pct 15.8 % [facility] Comment: Interpretive Data Percent cell count reference ranges are not reported, since discordance with absolute values may lead to misinterpretation of CBC data. Current Interpretive Data was last revised on 2017. Monocyte pct 9.8 % [facility] Comment: Interpretive Data Percent cell count reference ranges are not reported, since discordance with absolute values may lead to misinterpretation of CBC data. Current Interpretive Data was last revised on 2017. Eosinophil pct 0.4 % [facility] Comment: Interpretive Data Percent cell count reference ranges are not reported, since discordance with absolute values may lead to misinterpretation of CBC data. Current Interpretive Data was last revised on 2017. Basophil pct 0.4 % [facility] Comment: Interpretive Data Percent cell count reference ranges are not reported, since discordance with absolute values may lead to misinterpretation of CBC data. Current Interpretive Data was last revised on 2017. Blood specimen (specimen) 05/25/2019 10:42 PM CDT 05/25/2019 11:36 PM CDT Berny Carrera MD LAB BLOOD ORDERABLES Sri davalos Result [facility] Department [place] [address] * (ABNORMAL) Protime-INR (05/25/2019 10:42 PM CDT) PT 13.3(H) 8.6 - 13.[address] [facility] INR 1.2 0.8 - 1.[address] [facility] Comment: Interpretive data Oral anticoagulant [...] BLOOD ORDERABLES Final Result Performing Organization Address [facility]/State/ZIP Co de Phone Number [facility] Department [place] [address] * (ABNORMAL) CBC with auto differential (05/25/2019 10:42 PM CDT) [facility] WBC 7.4 3.8 - 9.9 K/cumm [facility] Hgb 9.2(L) 11.9 - 15.5 g/dL [facility] Hct 28.7(L) 35.6 - 45.5 % [facility] Plt 232 150 - 400 K/cumm [facility] MPV 10.4 9.1 - 12.[address] [facility] RBC 2.95(L) 3.90 - 5.20 M/cumm [facility] MCV 97.3(H) 81.3 - 96.[address] [facility] MCH 31.2 27.1 - 33.[address] [facility] MCHC 32.1(L) 32.3 - 35.7 g/dL [facility] RDW CV 15.0(H) 11.1 - 14.9 % [facility] RDW SD 52.3(H) 35.7 - 48.[address] [facility] NRBC abs 0.00 0.00 - 0.01 K/cumm [facility] Blood specimen (specimen) 05/25/2019 10:42 PM CDT 05/25/2019 11:36 PM CDT us Kaveh Charles MD LAB BLOOD ORDERABLES Final Result [facility] [place] [address] * POCT glucose (05/25/2019 9:08 PM CDT) [facility] Glucose, POC 167 70 - 199 mg/dL [facility] Blood specimen (specimen) 05/25/2019 9:08 PM CDT 05/25/2019 9:08 PM CDT Kaveh Charles MD LAB POCT ORDERABLES - DESTINEE CE Final Result Performing Organization Address City/[facility]/ZIP Co de Phone Number [facility] Department [place] [address] * (ABNORMAL) Basic metabolic panel (05/25/2019 8:30 PM CDT) [facility] Sodium 137 135 - 145 mmol/L [facility] Potassium, pl 4.1 3.3 - 4.9 mmol/L [facility] Chloride 104 97 - 110 mmol/L [facility] CO2 29 22 - 32 mmol/L [facility] Anion gap 4 2 - 15 mmol/L [facility] BUN 18 8 - 25 mg/dL [facility] Creatinine 0.62 0.60 - 1.10 mg/dL [facility] Glucose 171 70 - 199 mg/dL [facility] Comment: Interpretive Data Fasting glucose [...] 2017. Calcium 8.1(L) 8.5 - 10.3 mg/dL [facility] Blood specimen (specimen) 05/25/2019 8:30 PM CDT 05/25/2019 11:36 PM CDT Kaveh Charles MD LAB BLOOD ORDERABLES Final Result Performing Organization Address [facility]/State/ZIP Co de Phone Number [facility] Department [place] [address] * POCT glucose (05/25/2019 4:57 PM CDT) Glucose, POC 175 70 - 199 mg/dL [facility] Blood specimen (specimen) 05/25/2019 4:57 PM CDT 05/25/2019 4:57 PM CDT Kaveh Charles MD LAB POCT ORDERABLES - DESTINEE CE Final Result Performing Organization Address [facility] Co de Phone Number [facility] [place] [address] * (ABNORMAL) POCT glucose (05/25/2019 3:05 PM CDT) Glucose, POC 209(H) 70 - 199 mg/dL [facility] Blood specimen (specimen) 05/25/2019 3:05 PM CDT 05/25/2019 3:05 PM CDT Kaveh Charles MD LAB POCT ORDERABLES - DESTINEE CE Final Result Performing Organization Address [facility] Co de Phone Number [facility] Department [place] [address] * XR Knee Left 1 or 2 [...] BJ Glucose 204(H) 70 - 199 mg/dL [facility] Comment: Interpretive Data Fasting glucose [...] 2017. Calcium 8.3(L) 8.5 - 10.3 mg/dL [facility] Blood specimen (specimen) 05/25/2019 2:19 PM CDT 05/25/2019 2:44 PM CDT Kaveh Charles MD LAB BLOOD ORDERABLES Final Result [facility] Department [place] [address] * (ABNORMAL) CBC without differential (05/25/2019 2:19 PM CDT) WBC 6.7 3.8 - 9.9 K/cumm [facility] Hgb 9.9(L) 11.9 - 15.5 g/dL [facility] Hct 30.5(L) 35.6 - 45.5 % [facility] Plt 212 150 - 400 K/cumm [facility] MPV 10.4 9.1 - 12.[address] [facility] RBC 3.09(L) 3.90 - 5.20 M/cumm [facility] MCV 98.7(H) 81.3 - 96.[address] [facility] MCH 32.0 27.1 - 33.[address] [facility] MCHC 32.5 32.3 - 35.7 g/dL [facility] RDW CV 14.6 11.1 - 14.9 % [facility] RDW SD 51.8(H) 35.7 - 48.[address] [facility] [facility] [facility] NRBC abs 0.00 0.00 - 0.01 K/cumm [facility] Blood specimen (specimen) 05/25/2019 2:19 PM CDT 05/25/2019 2:44 PM CDT Kaveh Charles MD LAB BLOOD ORDERABLES Final Result Performing Organization Address [facility] de Phone Number [facility] Department [place] [address] * (ABNORMAL) Protime-INR (05/25/2019 2:19 PM CDT) Pathologist [facility] [place] PT 13.3(H) 8.6 - 13.[address] [facility] INR 1.2 0.8 - 1.[address] [facility] Comment: Interpretive data Oral anticoagulant [...] BLOOD ORDERABLES Final Result Performing Organization Address [facility] de Phone Number [facility] Department [place] [address] * (ABNORMAL) POC Blood Gas and Chemistries, Arterial - (05/25/2019 1:51 PM CDT) pH, Art 7.37 7.35 - 7.[address] [facility] pCO2, Art POC 43 35 - [address] [facility] pO2, Art POC 252(H) 83 - [address] [facility] Na, POC 138 135 - 145 mmol/L [facility] K POC 3.8 3.3 - 4.9 mmol/L [facility] Cl, POC 105 97 - 110 mmol/L [facility] Ionized Ca, POC 4.92 4.50 - 5.10 mg/dL [facility] Glucose, POC 177 70 - 199 mg/dL [facility] Lactate, POC 1.3 0.7 - 2.2 mmol/L [facility] SO2 (tatiana) arterial 100(H) 90 - 95 % [facility] Base excess, POC -0.6 mmol/L [facility] HCO3, Art POC 25 20 - 30 mmol/L [facility] Hct, POC 26.0(L) 36.3 - 45.3 % [facility] O2 Sat, Art POC (Calc) 100 % [facility] Total Hb, POC 8.8(L) 11.9 - 15.5 g/dL [facility] Blood specimen (specimen) 05/25/2019 1:51 PM CDT 05/25/2019 1:51 PM CDT Kaveh Charles MD LAB POCT ORDERABLES - [place] CE Final Result [facility] Department [place] [place] [address] * Transfuse RBC (05/25/2019 1:36 PM CDT) Blood specimen (specimen) Paul Kelly MD BLOOD TRANSFUSION ORDERABLES Final Result Performing Organization Address City/[facility]/ZIP Co de Phone Number [facility] [place] [address] * (ABNORMAL) POC Blood Gas and Chemistries, Venous - (05/25/2019 1:29 PM CDT) pH, [place] POC 7.35 7.32 - 7.[address] [facility] pCO2, al[place] POC 32(L) 40 - [address] [facility] pO2, alton POC [address] [facility] Na, POC 141 135 - 145 mmol/L [facility] K POC 2.6(L) 3.3 - 4.9 mmol/L [facility] Cl, POC 118(H) 97 - 110 mmol/L [facility] Ionized Ca, POC 3.44(L) 4.50 - 5.10 mg/dL [facility] Glucose, POC 116 70 - 199 mg/dL [facility] Lactate, POC 1.0 0.7 - 2.2 mmol/L [facility] O2 Sat, [place] POC (Tatiana) 81 % [facility] Base excess, POC -6.8 mmol/L [facility] HCO3, [place] POC 18(L) 20 - 30 mmol/L [facility] Hct, POC 19.0(L) 36.3 - 45.3 % [facility] Total Hb, POC 6.2(L) 11.9 - 15.5 g/dL [facility] O2 Sat, [place] POC (Calc) 78 % [facility] Blood specimen (specimen) 05/25/2019 1:29 PM CDT 05/25/2019 1:29 PM CDT Kaveh Charles MD LAB POCT ORDERABLES - [place]STIN[place] CE Final Result [facility] [place] [address] * POCT glucose (05/25/2019 1:00 PM CDT) Glucose, POC 156 70 - 199 mg/dL [facility] Blood specimen (specimen) 05/25/2019 1:00 PM CDT 05/25/2019 1:00 PM CDT us Kaveh Charles MD LAB POCT ORDERABLES - [place]STINEE CE Final Result [facility] Department [place] [address] * POCT glucose (05/25/2019 10:41 AM CDT) Glucose, POC 170 70 - 199 mg/dL [facility] Blood specimen (specimen) 05/25/2019 10:41 AM CDT 05/25/2019 10:41 AM CDT us Kaveh Charles MD LAB POCT ORDERABLES - DESTINEE CE Final Result Performing Organization Address City/[facility]/ZIP Co de Phone Number [facility] [place] [address] * Type and screen (05/25/2019 10:01 AM CDT) Gian, indirect Negative [facility] ABO Rh O Positive [facility] Blood specimen (specimen) 05/25/2019 10:01 AM CDT 05/25/2019 10:15 AM CDT Narrative [facility] - 05/25/2019 11:03 AM CDT Has the patient had Daratumumab (Darzalex) in the past 6 months?->Unknown us Paulina France NP LAB BLOOD BANK TEST ORDERAB LES Final Result Performing Organization Address [facility]/ZIP Co de Phone Number [facility] Department [place] [address] * Prepare RBC: 2 Units (05/25/2019 9:59 AM CDT) Product code [id number] [facility] Unit Number [id number] [facility] Product Blood Type OPOS [facility] Dispense Status RETURNED [facility] Product code [id number] [facility] Unit Number [id number] [facility] Product Blood Type OPOS [facility] Dispense Status PRESUMED TRANSFUSED [facility] Blood specimen (specimen) 05/25/2019 9:59 AM CDT 05/25/2019 9:59 AM CDT Narrative [facility] - 05/26/2019 12:49 AM CDT Are special requirements needed? (all products are leukoreduced)->No Date required:-[id number] LRRBC # of [id number] Reasons:-Intra-op transfusion} us Paul Kelly MD BLOOD BANK PRODUCT ORDERABLES Final Result Performing Organization Address [facility] Co de Phone Number [facility] [place] [address] * POCT glucose (05/25/2019 7:54 AM CDT) Glucose, POC 155 70 - 199 mg/dL [facility] Blood specimen (specimen) 05/25/2019 7:54 AM CDT 05/25/2019 7:54 AM CDT Kaveh Charles MD LAB POCT ORDERABLES - [place]STIN[place] CE Final Result Performing Organization Address [facility] de Phone Number [facility] [place] [address] * (ABNORMAL) Urinalysis, microscopic only (05/25/2019 6:11 AM CDT) WBC, ur 0-5 0 - 5 /HPF [facility] RBC, ur 0-2 0 - 2 /HPF [facility] Epithelial cells, squamous, ur 1-5 0 - 5 /HPF [facility] Mucous, ur Present(A) [facility] Culture Reflex Comment Reflex conditions for urine culture (WBC >10) not met. [facility] Urine 05/25/2019 6:11 AM CDT 05/25/2019 6:27 AM CDT Berny Carrera MD LAB URINE ORDERABLES Sri l Result Performing Organization Address [facility] Co de Phone Number [facility] [place] [address] * (ABNORMAL) Urinalysis reflex to microscopic and culture Urine (05/25/2019 6:11 AM CDT) Color, ur Yellow Yellow [facility] Clarity, ur Clear Clear [facility] Specific gravity, ur 1.023 1.010 - 1.[address] [facility] pH, urine [address] [facility] Protein, ur ql 1+(A) Negative [facility] Glucose, ur ql Negative Negative [facility] Ketones, ur Trace Negative [facility] Bilirubin, ur Negative Negative [facility] Blood, ur Negative Negative [facility] Urobilinogen, ur <2.0 <2.0 mg/dL [facility] Nitrite, ur Negative Negative [facility] Leukocyte esterase, ur Negative Negative [facility] UA reflex comment Reflex to microscopic UA will be performed. [facility] Urine 05/25/2019 6:11 AM CDT 05/25/2019 6:27 AM CDT Narrative [facility] - 05/25/2019 6:39 AM CDT ?? Urine pH is affected by diet, medications, systemic acid-base disturbances, and renal tubular function. ??pH may affect urinary stone formation. ??For example, urine pH below 6.0 may help reduce the tendency for calcium phosphate stones and pH greater than 6.0 may reduce the tendency for uric acid stone formation. Source: [employer]. Last revised 03-26-2017 Urine pH is affected by diet, medications, systemic acid-base disturbances, and renal tubular function. ??pH may affect urinary stone formation. ??For example, urine pH below 6.0 may help reduce the tendency for calcium phosphate stones and pH greater than 6.0 may reduce the tendency for uric acid stone formation. Source: [employer]. Last revised 03-26-2017 us Berny Carrera MD LAB MICROBIOLOGY - GENERA L ORDERABLES Final Result [facility] Department [place] [address] * POCT glucose (05/25/2019 3:34 AM CDT) Glucose, POC 164 70 - 199 mg/dL [facility] Blood specimen (specimen) 05/25/2019 3:34 AM CDT 05/25/2019 3:34 AM CDT Kaveh Charles MD LAB POCT ORDERABLES - [place]STINEE CE Final Result Performing Organization Address [facility] de Phone Number [facility] [place] [address] * POCT glucose (05/24/2019 11:32 PM CDT) Glucose, POC 153 70 - 199 mg/dL [facility] Blood specimen (specimen) 05/24/2019 11:32 PM CDT 05/24/2019 11:32 PM CDT Kaveh Charles MD LAB POCT ORDERABLES - DESTINEE CE Final Result Performing Organization Address [facility] de Phone Number [facility] Department [place] [address] * Magnesium (05/24/2019 10:08 PM CDT) Magnesium 2.2 1.4 - 2.5 mg/dL [facility] Blood specimen (specimen) 05/24/2019 10:08 PM CDT 05/24/2019 10:25 PM CDT Kaveh Charles MD LAB BLOOD ORDERABLES Final Result Performing Organization Address [facility] de Phone Number [facility] [place] [address] * Differential, auto (05/24/2019 10:08 PM CDT) Neutrophil abs 4.0 1.7 - 6.5 K/cumm [facility] Imm gran abs 0.0 0.0 - 0.1 K/cumm [facility] Lymphocyte abs 1.6 0.8 - 3.3 K/cumm [facility] Monocyte abs 0.7 0.2 - 0.8 K/cumm [facility] Eosinophil abs 0.1 0.0 - 0.5 K/cumm [facility] Basophil abs 0.0 0.0 - 0.1 K/cumm [facility] Neutrophil pct 62.6 % [facility] Comment: Interpretive Data Percent cell count reference ranges are not reported, since discordance with absolute values may lead to misinterpretation of CBC data. Current Interpretive Data was last revised on 2017. Imm gran pct 0.3 % [facility] Comment: Interpretive Data Percent cell count reference ranges are not reported, since discordance with absolute values may lead to misinterpretation of CBC data. Current Interpretive Data was last revised on 2017. Lymphocyte pct 24.5 % [facility] Comment: Interpretive Data Percent cell count reference ranges are not reported, since discordance with absolute values may lead to misinterpretation of CBC data. Current Interpretive Data was last revised on 2017. Monocyte pct 10.6 % [facility] Comment: Interpretive Data Percent cell count reference ranges are not reported, since discordance with absolute values may lead to misinterpretation of CBC data. Current Interpretive Data was last revised on 2017. Eosinophil pct 1.5 % [facility] Comment: Interpretive Data Percent cell count reference ranges are not reported, since discordance with absolute values may lead to misinterpretation of CBC data. Current Interpretive Data was last revised on 2017. Basophil pct 0.5 % [facility] Comment: Interpretive Data Percent cell count reference ranges are not reported, since discordance with absolute values may lead to misinterpretation of CBC data. Current Interpretive Data was last revised on 2017. Blood specimen (specimen) 05/24/2019 10:08 PM CDT 05/24/2019 10:25 PM CDT us Berny Carrera MD LAB BLOOD ORDERABLES Sri davalos Result [facility] Department [place] [address] * (ABNORMAL) Protime-INR (05/24/2019 10:08 PM CDT) PT 14.6(H) 8.6 - 13.[address] [facility] INR 1.3(H) 0.8 - 1.[address] [facility] Comment: Interpretive data Oral anticoagulant therapeutic ranges: Venous thromboembolism prophylaxis or treatment: 2.0-3.0 CARDIOLOGY Standard range: 2.0-3.0 High-intensity range: 2.5-3.5 Refer to indication-specific guidelines for appropriate target ranges for prosthetic heart valve replacement. Current interpretive data was last revised on 2019. Blood specimen (specimen) 05/24/2019 10:08 PM CDT 05/24/2019 10:18 PM CDT Kaveh Charles MD LAB BLOOD ORDERABLES Final Result [facility] Department [place] [address] * (ABNORMAL) Basic metabolic panel (05/24/2019 10:08 PM CDT) Pathologist [facility] [place] Sodium 132(L) 135 - 145 mmol/L [facility] Potassium, pl 4.3 3.3 - 4.9 mmol/L [facility] Comment:Hemolyzed; Potassium value may be falsely elevated by as much as 0.6-1.0 mmol/L. Suggest redraw and reanalysis. Chloride 100 97 - 110 mmol/L [facility] CO2 23 22 - 32 mmol/L [facility] Anion gap 9 2 - 15 mmol/L [facility] BUN 18 8 - 25 mg/dL [facility] Creatinine 0.45(L) 0.60 - 1.10 mg/dL [facility] Glucose 149 70 - 199 mg/dL [facility] Comment: Interpretive Data Fasting glucose [...] 2017. Calcium 8.2(L) 8.5 - 10.3 mg/dL [facility] Blood specimen (specimen) 05/24/2019 10:08 PM CDT 05/24/2019 10:25 PM CDT Kaveh Charles MD LAB BLOOD ORDERABLES Final Result [facility] Department [place] [address] * (ABNORMAL) CBC with auto differential (05/24/2019 10:08 PM CDT) WBC 6.5 3.8 - 9.9 K/cumm [facility] Hgb 9.4(L) 11.9 - 15.5 g/dL [facility] Hct 28.7(L) 35.6 - 45.5 % [facility] Plt 194 150 - 400 K/cumm [facility] MPV 10.3 9.1 - 12.[address] [facility] RBC 2.98(L) 3.90 - 5.20 M/cumm [facility] MCV 96.3 81.3 - 96.[address] [facility] MCH 31.5 27.1 - 33.[address] [facility] MCHC 32.8 32.3 - 35.7 g/dL [facility] RDW CV 13.9 11.1 - 14.9 % [facility] RDW SD 48.5(H) 35.7 - 48.[address] [facility] NRBC abs 0.00 0.00 - 0.01 K/cumm [facility] Blood specimen (specimen) 05/24/2019 10:08 PM CDT 05/24/2019 10:25 PM CDT us Kaveh Charles MD LAB BLOOD ORDERABLES Final Result Performing Organization Address [facility] Co de Phone Number [facility] [place] [address] * POCT glucose (05/24/2019 8:59 PM CDT) Glucose, POC 159 70 - 199 mg/dL [facility] Blood specimen (specimen) 05/24/2019 8:59 PM CDT 05/24/2019 8:59 PM CDT Kaveh Charles MD LAB POCT ORDERABLES - [place]STINEE CE Final Result Performing Organization Address [facility] Co de Phone Number [facility] [place] [address] * POCT glucose (05/24/2019 3:28 PM CDT) Glucose, POC 187 70 - 199 mg/dL [facility] Blood specimen (specimen) 05/24/2019 3:28 PM CDT 05/24/2019 3:28 PM CDT Kaveh Charles MD LAB POCT ORDERABLES - [place]STINEE CE Final Result Performing Organization Address [facility] Co de Phone Number [facility] [place] [address] * POCT glucose (05/24/2019 11:16 AM CDT) Glucose, POC 189 70 - 199 mg/dL [facility] Blood specimen (specimen) 05/24/2019 11:16 AM CDT 05/24/2019 11:16 AM CDT us Kaveh Charles MD LAB POCT ORDERABLES - [place]STIN[place] CE Final Result Performing Organization Address [facility] Co de Phone Number [facility] [place] [address] * POCT glucose (05/24/2019 7:54 AM CDT) Glucose, POC 161 70 - 199 mg/dL [facility] Blood specimen (specimen) 05/24/2019 7:54 AM CDT 05/24/2019 7:54 AM CDT us Kaveh Charles MD LAB POCT ORDERABLES - DESTINEE CE Final Result Performing Organization Address City/[facility] [place] [address] * POCT glucose (05/24/2019 4:54 AM CDT) Glucose, POC 155 70 - 199 mg/dL [facility] Blood specimen (specimen) 05/24/2019 4:54 AM CDT 05/24/2019 4:54 AM CDT us Kaveh Charles MD LAB POCT ORDERABLES - [place]STINEE CE Final Result Performing Organization Address City/[facility] Co de Phone Number [facility] [place] [address] * POCT glucose (05/24/2019 12:43 AM CDT) Glucose, POC 155 70 - 199 mg/dL [facility] Blood specimen (specimen) 05/24/2019 12:43 AM CDT 05/24/2019 12:43 AM CDT Kaveh Charles MD LAB POCT ORDERABLES - [place]STINEE CE Final Result Performing Organization Address City/[facility]/ZIP Co de Phone Number [facility] [place] [address] * Differential, auto (05/23/2019 10:20 PM CDT) Neutrophil abs 4.7 1.7 - 6.5 K/cumm [facility] Imm gran abs 0.0 0.0 - 0.1 K/cumm [facility] Lymphocyte abs 1.5 0.8 - 3.3 K/cumm [facility] Monocyte abs 0.7 0.2 - 0.8 K/cumm [facility] Eosinophil abs 0.0 0.0 - 0.5 K/cumm [facility] Basophil abs 0.0 0.0 - 0.1 K/cumm [facility] Neutrophil pct 66.8 % [facility] Comment: Interpretive Data Percent cell count reference ranges are not reported, since discordance with absolute values may lead to misinterpretation of CBC data. Current Interpretive Data was last revised on 2017. Imm gran pct 0.4 % [facility] Comment: Interpretive Data Percent cell count reference ranges are not reported, since discordance with absolute values may lead to misinterpretation of CBC data. Current Interpretive Data was last revised on 2017. Lymphocyte pct 21.6 % [facility] Comment: Interpretive Data Percent cell count reference ranges are not reported, since discordance with absolute values may lead to misinterpretation of CBC data. Current Interpretive Data was last revised on 2017. Monocyte pct 10.2 % [facility] Comment: Interpretive Data Percent cell count reference ranges are not reported, since discordance with absolute values may lead to misinterpretation of CBC data. Current Interpretive Data was last revised on 2017. Eosinophil pct 0.7 % [facility] Comment: Interpretive Data Percent cell count reference ranges are not reported, since discordance with absolute values may lead to misinterpretation of CBC data. Current Interpretive Data was last revised on 2017. Basophil pct 0.3 % [facility] Comment: Interpretive Data Percent cell count reference ranges are not reported, since discordance with absolute values may lead to misinterpretation of CBC data. Current Interpretive Data was last revised on 2017. Blood specimen (specimen) 05/23/2019 10:20 PM CDT 05/23/2019 10:42 PM CDT us Berny Carrera MD LAB BLOOD ORDERABLES Sri l Result [facility] Department [place] [address] * (ABNORMAL) Basic metabolic panel (05/23/2019 10:20 PM CDT) Pathologist [facility] [place] Sodium 136 135 - 145 mmol/L [facility] Potassium, pl 3.8 3.3 - 4.9 mmol/L [facility] Chloride 101 97 - 110 mmol/L [facility] CO2 30 22 - 32 mmol/L [facility] Anion gap 5 2 - 15 mmol/L [facility] BUN 18 8 - 25 mg/dL [facility] Creatinine 0.59(L) 0.60 - 1.10 mg/dL [facility] Glucose 163 70 - 199 mg/dL [facility] Comment: Interpretive Data Fasting glucose [...] 2017. Calcium 8.8 8.5 - 10.3 mg/dL [facility] Blood specimen (specimen) 05/23/2019 10:20 PM CDT 05/23/2019 10:42 PM CDT Kaveh Charles MD LAB BLOOD ORDERABLES Final Result [facility] Department [place] [address] * (ABNORMAL) CBC with auto differential (05/23/2019 10:20 PM CDT) WBC 7.0 3.8 - 9.9 K/cumm [facility] Hgb 9.2(L) 11.9 - 15.5 g/dL [facility] Hct 28.1(L) 35.6 - 45.5 % [facility] Plt 186 150 - 400 K/cumm [facility] MPV 9.8 9.1 - 12.[address] [facility] RBC 2.92(L) 3.90 - 5.20 M/cumm [facility] MCV 96.2 81.3 - 96.[address] [facility] MCH 31.5 27.1 - 33.[address] [facility] MCHC 32.7 32.3 - 35.7 g/dL [facility] RDW CV 13.9 11.1 - 14.9 % [facility] RDW SD 49.3(H) 35.7 - 48.[address] [facility] NRBC abs 0.00 0.00 - 0.01 K/cumm [facility] Blood specimen (specimen) 05/23/2019 10:20 PM CDT 05/23/2019 10:42 PM CDT us Kaveh Charles MD LAB BLOOD ORDERABLES Final Result Performing Organization Address City/[facility]/ZIP Co de Phone Number [facility] Department [place] [place] [address] * POCT glucose (05/23/2019 9:43 PM CDT) [facility] Glucose, POC 173 70 - 199 mg/dL [facility] Blood specimen (specimen) 05/23/2019 9:43 PM CDT 05/23/2019 9:43 PM CDT Kaveh Charles MD LAB POCT ORDERABLES - DESTINEE CE Final Result Performing Organization Address City/[facility]/ZIP Co de Phone Number [facility] Department of [place] [address] * POCT glucose (05/23/2019 4:35 PM CDT) Glucose, POC 165 70 - 199 mg/dL [facility] Blood specimen (specimen) 05/23/2019 4:35 PM CDT 05/23/2019 4:35 PM CDT Kaveh Charles MD LAB POCT ORDERABLES - [place] CE Final Result Performing Organization Address City/[facility] Co de Phone Number [facility] [place] [place] [address] * POCT glucose (05/23/2019 11:22 AM CDT) Glucose, POC 174 70 - 199 mg/dL [facility] Blood specimen (specimen) 05/23/2019 11:22 AM CDT 05/23/2019 11:22 AM CDT Kaveh Charles MD LAB POCT ORDERABLES - [place] CE Final Result Performing Organization Address [facility] [place] [address] * POCT glucose (05/23/2019 8:21 AM CDT) Glucose, POC 169 70 - 199 mg/dL [facility] Blood specimen (specimen) 05/23/2019 8:21 AM CDT 05/23/2019 8:21 AM CDT Kaveh Charles MD LAB POCT ORDERABLES - [place] CE Final Result Performing Organization Address [facility] [place] [address] * POCT glucose (05/23/2019 4:42 AM CDT) Glucose, POC 156 70 - 199 mg/dL [facility] Blood specimen (specimen) 05/23/2019 4:42 AM CDT 05/23/2019 4:42 AM CDT Kaveh Charles MD LAB POCT ORDERABLES - [place] CE Final Result Performing Organization Address City/[facility] Co de Phone Number [facility] Department [place] [address] * POCT glucose (05/23/2019 12:12 AM CDT) Pathologist [facility] [place] Glucose, POC 183 70 - 199 mg/dL [facility] Blood specimen (specimen) 05/23/2019 12:12 AM CDT 05/23/2019 12:12 AM CDT Kaveh Charles MD LAB POCT ORDERABLES - [place] CE Final Result Performing Organization Address City/[facility] de Phone Number [facility] [place] [address] * Differential, auto (05/22/2019 11:17 PM CDT) [facility] Neutrophil abs 5.3 1.7 - 6.5 K/cumm [facility] Imm gran abs 0.0 0.0 - 0.1 K/cumm [facility] Lymphocyte abs 1.3 0.8 - 3.3 K/cumm [facility] Monocyte abs 0.8 0.2 - 0.8 K/cumm [facility] Eosinophil abs 0.0 0.0 - 0.5 K/cumm [facility] Basophil abs 0.0 0.0 - 0.1 K/cumm [facility] Neutrophil pct 71.2 % [facility] Comment: Interpretive Data Percent cell count reference ranges are not reported, since discordance with absolute values may lead to misinterpretation of CBC data. Current Interpretive Data was last revised on 2017. Imm gran pct 0.3 % [facility] Comment: Interpretive Data Percent cell count reference ranges are not reported, since discordance with absolute values may lead to misinterpretation of CBC data. Current Interpretive Data was last revised on 2017. Lymphocyte pct 17.6 % [facility] Comment: Interpretive Data Percent cell count reference ranges are not reported, since discordance with absolute values may lead to misinterpretation of CBC data. Current Interpretive Data was last revised on 2017. Monocyte pct 10.1 % [facility] Comment: Interpretive Data Percent cell count reference ranges are not reported, since discordance with absolute values may lead to misinterpretation of CBC data. Current Interpretive Data was last revised on 2017. Eosinophil pct 0.5 % [facility] Comment: Interpretive Data Percent cell count reference ranges are not reported, since discordance with absolute values may lead to misinterpretation of CBC data. Current Interpretive Data was last revised on 2017. Basophil pct 0.3 % [facility] Comment: Interpretive Data Percent cell count reference ranges are not reported, since discordance with absolute values may lead to misinterpretation of CBC data. Current Interpretive Data was last revised on 2017. Blood specimen (specimen) 05/22/2019 11:17 PM CDT 05/22/2019 11:35 PM CDT Berny Carrera MD LAB BLOOD ORDERABLES Sri davalos Result [facility] Department [place] [address] * (ABNORMAL) Basic metabolic panel (05/22/2019 11:17 PM CDT) Sodium 136 135 - 145 mmol/L [facility] Potassium, pl 3.7 3.3 - 4.9 mmol/L [facility] Chloride 102 97 - 110 mmol/L [facility] CO2 29 22 - 32 mmol/L [facility] Anion gap 5 2 - 15 mmol/L [facility] BUN 25 8 - 25 mg/dL [facility] Creatinine 0.83 0.60 - 1.10 mg/dL [facility] Glucose 180 70 - 199 mg/dL [facility] Comment: Interpretive Data Fasting glucose [...] 2017. Calcium 8.4(L) 8.5 - 10.3 mg/dL [facility] Blood specimen (specimen) 05/22/2019 11:17 PM CDT 05/22/2019 11:34 PM CDT Kaveh Charles MD LAB BLOOD ORDERABLES Final Result [facility] Department [place] [address] * (ABNORMAL) CBC with auto differential (05/22/2019 11:17 PM CDT) WBC 7.4 3.8 - 9.9 K/cumm [facility] Hgb 9.9(L) 11.9 - 15.5 g/dL [facility] Hct 30.3(L) 35.6 - 45.5 % [facility] Plt 203 150 - 400 K/cumm [facility] MPV 10.3 9.1 - 12.[address] [facility] RBC 3.15(L) 3.90 - 5.20 M/cumm [facility] MCV 96.2 81.3 - 96.[address] [facility] MCH 31.4 27.1 - 33.[address] [facility] MCHC 32.7 32.3 - 35.7 g/dL [facility] RDW CV 13.9 11.1 - 14.9 % [facility] RDW SD 48.9(H) 35.7 - 48.[address] [facility] NRBC abs 0.00 0.00 - 0.01 K/cumm [facility] Blood specimen (specimen) 05/22/2019 11:17 PM CDT 05/22/2019 11:35 PM CDT Kaveh Charles MD LAB BLOOD ORDERABLES Final Result Performing Organization Address [facility] Co de Phone Number [facility] [place] [address] * POCT glucose (05/22/2019 9:23 PM CDT) Glucose, POC 171 70 - 199 mg/dL [facility] Blood specimen (specimen) 05/22/2019 9:23 PM CDT 05/22/2019 9:23 PM CDT Kaveh Charles MD LAB POCT ORDERABLES - [place] CE Final Result Performing Organization Address [facility] Co de Phone Number [facility] [place] [address] * POCT glucose (05/22/2019 5:18 PM CDT) Glucose, POC 147 70 - 199 mg/dL [facility] Blood specimen (specimen) 05/22/2019 5:18 PM CDT 05/22/2019 5:18 PM CDT Kaveh Charles MD LAB POCT ORDERABLES - [place]IN[place] CE Final Result Performing Organization Address City/[facility] [place] [address] * POCT glucose (05/22/2019 11:21 AM CDT) Glucose, POC 171 70 - 199 mg/dL [facility] Blood specimen (specimen) 05/22/2019 11:21 AM CDT 05/22/2019 11:21 AM CDT us Steve Garcia MD LAB POCT ORDERABLES - DEV ICE Final Result Performing Organization Address [facility] [place] [address] * POCT glucose (05/22/2019 10:30 AM CDT) Glucose, POC 104 70 - 199 mg/dL [facility] Glucose comment 1 RN [address] [facility] Blood specimen (specimen) 05/22/2019 10:30 AM CDT 05/22/2019 10:30 AM CDT us Steve Garcia MD LAB POCT ORDERABLES - DEV ICE Final Result Performing Organization Address [facility] [place] [address] * POCT glucose (05/22/2019 8:29 AM CDT) Glucose, POC 131 70 - 199 mg/dL [facility] Blood specimen (specimen) 05/22/2019 8:29 AM CDT 05/22/2019 8:29 AM CDT us Steve Garcia MD LAB POCT ORDERABLES - DEV ICE Final Result Performing Organization Address City/[facility] [place] [address] * POCT glucose (05/22/2019 6:39 AM CDT) Glucose, POC 178 70 - 199 mg/dL [facility] Blood specimen (specimen) 05/22/2019 6:39 AM CDT 05/22/2019 6:39 AM CDT us Steve Garcia MD LAB POCT ORDERABLES - [place] [address] * POCT glucose (05/22/2019 4:59 AM CDT) Glucose, POC 190 70 - 199 mg/dL [facility] Blood specimen (specimen) 05/22/2019 4:59 AM CDT 05/22/2019 4:59 AM CDT Steve Garcia MD LAB POCT ORDERABLES - DEV ICE Final Result Performing Organization Address [facility] [place] [address] * (ABNORMAL) Protime-INR (05/22/2019 4:57 AM CDT) [facility] PT 15.1(H) 8.6 - 13.[address] [facility] INR 1.4(H) 0.8 - 1.[address] [facility] Comment: Interpretive data Oral anticoagulant [...] ORDERABLES Sri l Result Performing Organization Address City/[facility] [place] [address] * POCT glucose (05/22/2019 12:39 AM SALES DEVELOPMENT EXECUTIVE) Glucose, POC 160 70 - 199 mg/dL [facility] Blood specimen (specimen) 05/22/2019 12:39 AM SALES DEVELOPMENT EXECUTIVE 05/22/2019 12:39 AM SALES DEVELOPMENT EXECUTIVE us Steve Garcia MD LAB POCT ORDERABLES - DEV ICE Final Result Performing Organization Address [facility] de Phone Number [facility] Department [place] [address] * Check Sample (05/21/2019 11:48 PM SALES DEVELOPMENT EXECUTIVE) ABO Rh O Positive [facility] HCLL OTHER 05/21/2019 11:4 8 PM SALES DEVELOPMENT EXECUTIVE 05/22/2019 12:22 AM SALES DEVELOPMENT EXECUTIVE us Steve Garcia MD LAB BLOOD ORDERABLES Sri l Result Performing Organization Address [facility] de Phone Number [facility] Department [place] [address] * POCT glucose (05/21/2019 11:47 PM SALES DEVELOPMENT EXECUTIVE) Glucose, POC 158 70 - 199 mg/dL [facility] Blood specimen (specimen) 05/21/2019 11:47 PM SALES DEVELOPMENT EXECUTIVE 05/21/2019 11:47 PM SALES DEVELOPMENT EXECUTIVE Steve Garcia MD LAB POCT ORDERABLES - DEV ICE Final Result Performing Organization Address [facility] de Phone Number [facility] [place] [address] * CT Knee Left WO Contrast (05/21/2019 10:21 PM SALES DEVELOPMENT EXECUTIVE) Anatomical Region Laterality Modality Lower Extremities Left Computed Tomog noel 05/21/2019 10:4 6 PM SALES DEVELOPMENT EXECUTIVE Impressions 05/23/2019 9:24 AM CDT 1. ??Complex [...] CT MR Outside Consult (05/21/2019 8:41 PM SALES DEVELOPMENT EXECUTIVE) Anatomical Region Laterality Modality N/A Computed Tomogra phy 05/21/2019 8:49 PM SALES DEVELOPMENT EXECUTIVE Impressions 05/22/2019 9:46 AM CDT 1. ??No [...] images may or may not represent the [place] source data set and thus may contain [...] IMAGING STUDY STUDY INITIALLY PERFORMED: 05/21/2019 at [facility]. TYPE OF STUDY: Multiple CT images [...] IMAGING STUDY STUDY INITIALLY PERFORMED: 05/21/2019 at [facility]. TYPE OF STUDY: Multiple CT images [...] images may or may not represent the [place] source data set and thus may contain [...] Cervical Spine WO Contrast (05/21/2019 8:29 PM SALES DEVELOPMENT EXECUTIVE) Anatomical Region Laterality Modality Spine N/A Computed Tomogra phy 05/21/2019 8:43 PM SALES DEVELOPMENT EXECUTIVE Addenda Addendum by Isreal Izaguirre MD PhD on 02/27/2021 9:33 PM SALES DEVELOPMENT EXECUTIVE Patient had follow up with ENT 12/19/20. [...] 1 or 2 Views (05/21/2019 8:26 PM SALES DEVELOPMENT EXECUTIVE) Anatomical Region Laterality Modality Lower Extremities, Knee Left Computed Radiography 05/21/2019 8:37 PM SALES DEVELOPMENT EXECUTIVE Impressions 05/23/2019 7:07 AM CDT 1. ??Highly [...] 1 or 2 Views (05/21/2019 8:26 PM SALES DEVELOPMENT EXECUTIVE) Anatomical Region Laterality Modality Body, Pelvis N/A Computed Radiogr aphy 05/21/2019 8:37 PM SALES DEVELOPMENT EXECUTIVE Impressions 05/23/2019 7:07 AM CDT 1. ??Highly [...] 2 or More Views (05/21/2019 8:25 PM SALES DEVELOPMENT EXECUTIVE) Anatomical Region Laterality Modality Lower Extremities, Thigh, Femur Left Computed Radiography 05/21/2019 8:37 PM SALES DEVELOPMENT EXECUTIVE Impressions 05/23/2019 7:07 AM CDT 1. ??Highly [...] XR Chest 1 View (05/21/2019 8:24 PM SALES DEVELOPMENT EXECUTIVE) Anatomical Region Laterality Modality Body, Chest N/A Computed Radiogr aphy 05/21/2019 8:29 PM SALES DEVELOPMENT EXECUTIVE Impressions 05/23/2019 7:07 AM CDT Comparison is [...] * (ABNORMAL) Differential, auto (05/21/2019 7:43 PM SALES DEVELOPMENT EXECUTIVE) Neutrophil abs 7.8(H) 1.7 - 6.5 K/cumm [facility] Imm gran abs 0.0 0.0 - 0.1 K/cumm [facility] Lymphocyte abs 1.4 0.8 - 3.3 K/cumm [facility] Monocyte abs 0.6 0.2 - 0.8 K/cumm [facility] Eosinophil abs 0.0 0.0 - 0.5 K/cumm [facility] Basophil abs 0.0 0.0 - 0.1 K/cumm [facility] Neutrophil pct 78.3 % [facility] Comment: Interpretive Data Percent cell count reference ranges are not reported, since discordance with absolute values may lead to misinterpretation of CBC data. Current Interpretive Data was last revised on 2017. Imm gran pct 0.5 % [facility] Comment: Interpretive Data Percent cell count reference ranges are not reported, since discordance with absolute values may lead to misinterpretation of CBC data. Current Interpretive Data was last revised on 2017. Lymphocyte pct 14.2 % [facility] Comment: Interpretive Data Percent cell count reference ranges are not reported, since discordance with absolute values may lead to misinterpretation of CBC data. Current Interpretive Data was last revised on 2017. Monocyte pct 6.6 % [facility] Comment: Interpretive Data Percent cell count reference ranges are not reported, since discordance with absolute values may lead to misinterpretation of CBC data. Current Interpretive Data was last revised on 2017. Eosinophil pct 0.1 % [facility] Comment: Interpretive Data Percent cell count reference ranges are not reported, since discordance with absolute values may lead to misinterpretation of CBC data. Current Interpretive Data was last revised on 2017. Basophil pct 0.3 % [facility] Comment: Interpretive Data Percent cell count reference ranges are not reported, since discordance with absolute values may lead to misinterpretation of CBC data. Current Interpretive Data was last revised on 2017. Blood specimen (specimen) 05/21/2019 7:43 PM SALES DEVELOPMENT EXECUTIVE 05/21/2019 8:08 PM SALES DEVELOPMENT EXECUTIVE Alessandro Malone MD LAB BLOOD ORDERABLES Fi nal Result Performing Organization Address [facility] de Phone Number [facility] [place] [address] * aPTT (05/21/2019 7:43 PM SALES DEVELOPMENT EXECUTIVE) aPTT 32 25 - [address] [facility] Comment: Interpretive data Heparin therapeutic range: 60-90 seconds Range based on correlation with therapeutic heparin activity range of 0.3-0.7 units/ml. Current interpretive data was last revised on 2019. Blood specimen (specimen) 05/21/2019 7:43 PM SALES DEVELOPMENT EXECUTIVE 05/21/2019 7:52 PM SALES DEVELOPMENT EXECUTIVE Narrative [facility] - 05/21/2019 8:23 PM SALES DEVELOPMENT EXECUTIVE THE COLLECTION LOCATION IS [address] Alessandro Malone MD LAB BLOOD ORDERABLES Fi nal Result Performing Organization Address [facility] de Phone Number [facility] [place] [address] * (ABNORMAL) Protime-INR (05/21/2019 7:43 PM SALES DEVELOPMENT EXECUTIVE) PT 33.0(H) 8.6 - 13.[address] [facility] INR 3.0(H) 0.8 - 1.[address] [facility] Comment: Interpretive data Oral anticoagulant therapeutic ranges: Venous thromboembolism prophylaxis or treatment: 2.0-3.0 CARDIOLOGY Standard range: 2.0-3.0 High-intensity range: 2.5-3.5 Refer to indication-specific guidelines for appropriate target ranges for prosthetic heart valve replacement. Current interpretive data was last revised on 2019. Blood specimen (specimen) 05/21/2019 7:43 PM SALES DEVELOPMENT EXECUTIVE 05/21/2019 7:52 PM SALES DEVELOPMENT EXECUTIVE Narrative [facility] - 05/21/2019 8:23 PM SALES DEVELOPMENT EXECUTIVE THE COLLECTION LOCATION IS [id number] Alessandro Malone MD LAB BLOOD ORDERABLES Fi nal Result Performing Organization Address [facility] [place] [address] * Type and screen (05/21/2019 7:43 PM SALES DEVELOPMENT EXECUTIVE) Pathologist [facility] [place] ABO Rh O Positive [facility] Gian, indirect Negative [facility] Blood specimen (specimen) 05/21/2019 7:43 PM SALES DEVELOPMENT EXECUTIVE 05/21/2019 10:01 PM SALES DEVELOPMENT EXECUTIVE Narrative [facility] - 05/21/2019 10:57 PM SALES DEVELOPMENT EXECUTIVE Has the patient had Daratumumab (Darzalex) in the past 6 months?->Unknown THE COLLECTION LOCATION IS [id number] Alessandro Malone MD LAB BLOOD BANK TEST ORD ERABLES Final Result Performing Organization Address [facility] de Phone Number [facility] [place] [address] * (ABNORMAL) Comprehensive metabolic panel (05/21/2019 7:43 PM SALES DEVELOPMENT EXECUTIVE) [facility] Sodium 137 135 - 145 mmol/L [facility] Potassium, pl 3.8 3.3 - 4.9 mmol/L [facility] Chloride 103 97 - 110 mmol/L [facility] CO2 25 22 - 32 mmol/L [facility] Anion gap 9 2 - 15 mmol/L [facility] BUN 17 8 - 25 mg/dL [facility] Creatinine 0.53(L) 0.60 - 1.10 mg/dL [facility] Glucose 180 70 - 199 mg/dL [facility] Comment: Interpretive Data Fasting glucose [...] 2017. Calcium 9.2 8.5 - 10.3 mg/dL [facility] Bilirubin, total 1.0 0.1 - 1.2 mg/dL [facility] Protein, pl 7.1 6.5 - 8.5 g/dL [facility] Albumin 3.6 3.5 - 5.0 g/dL [facility] Alk phos 78 40 - 130 Units/L [facility] ALT 38 7 - 45 Units/L [facility] AST 64(H) 10 - 45 Units/L [facility] Blood specimen (specimen) 05/21/2019 7:43 PM SALES DEVELOPMENT EXECUTIVE 05/21/2019 8:07 PM SALES DEVELOPMENT EXECUTIVE Narrative [facility] - 05/21/2019 8:34 PM SALES DEVELOPMENT EXECUTIVE THE COLLECTION LOCATION IS [address] Alessandro Malone MD LAB BLOOD ORDERABLES nal Result [facility] Department [place] [address] * (ABNORMAL) CBC with auto differential (05/21/2019 7:43 PM SALES DEVELOPMENT EXECUTIVE) WBC 9.9 3.8 - 9.9 K/cumm [facility] Hgb 12.0 11.9 - 15.5 g/dL [facility] Hct 36.7 35.6 - 45.5 % [facility] Plt 259 150 - 400 K/cumm [facility] MPV 10.3 9.1 - 12.[address] [facility] RBC 3.82(L) 3.90 - 5.20 M/cumm [facility] MCV 96.1 81.3 - 96.[address] [facility] MCH 31.4 27.1 - 33.[address] [facility] MCHC 32.7 32.3 - 35.7 g/dL [facility] RDW CV 13.7 11.1 - 14.9 % [facility] RDW SD 48.4(H) 35.7 - 48.[address] [facility] NRBC abs 0.00 0.00 - 0.01 K/cumm [facility] Blood specimen (specimen) 05/21/2019 7:43 PM SALES DEVELOPMENT EXECUTIVE 05/21/2019 8:08 PM SALES DEVELOPMENT EXECUTIVE Narrative [facility] - 05/21/2019 8:16 PM SALES DEVELOPMENT EXECUTIVE THE COLLECTION LOCATION IS [address] us Alessandro Malone MD LAB BLOOD ORDERABLES Fi nal Result [facility] [place] [address] * (ABNORMAL) ECG 12-LEAD (05/21/2019 7:40 PM SALES DEVELOPMENT EXECUTIVE) Narrative [facility] - 05/21/2019 7:40 PM SALES DEVELOPMENT EXECUTIVE Berny Carrera MD ? 05/21/2019 ??7:40 PM [...] ORDERABLES Final R esult Performing Organization Address [facility] Co de Phone Number [facility] * XR Outside Reference (05/21/2019 7:33 PM SALES DEVELOPMENT EXECUTIVE) Impressions [facility] - 05/21/2019 7:33 PM SALES DEVELOPMENT EXECUTIVE These images are for Reference purposes only and have not been reviewed by [facility] Radiology. ??There will be no report generated by a [facility] Radiologist. Narrative [facility] - 05/21/2019 7:33 PM SALES DEVELOPMENT EXECUTIVE EXAMINATION: ??Images For Reference Purposes Only Alessandro Malone MD IMG XR PROCEDURES Final Result Performing Organization Address [facility] de Phone Number [email or web address] * POCT glucose (05/21/2019 7:27 PM SALES DEVELOPMENT EXECUTIVE) Glucose, POC 171 70 - 199 mg/dL [facility] Blood specimen (specimen) 05/21/2019 7:27 PM SALES DEVELOPMENT EXECUTIVE 05/21/2019 7:27 PM SALES DEVELOPMENT EXECUTIVE Notinfile Unknown LAB POCT ORDERABLES - DEVICE F inal Result Performing Organization Address [facility] de Phone Number [facility] One [facility] [place] [address] documented in this encounter Visit Diagnoses Diagnosis [...] oral, 2 times daily, First dose on [facility] 05/21/19 at 2222 Given 05/27/2019 8:14 AM CDT 25 mg Given 05/26/2019 9:38 PM CDT 25 mg Given 05/26/2019 9:28 AM CDT 25 mg dextrose (D10W) 10% bolus 250 mL 250 mL, intravenous, at 1,000 mL/hr, Administer over 15 Minutes, Every 15 min PRN, blood glucose less than 70 mg/dL and UNABLE to swallow/take PO glucose/juice., Starting on [place] 05/22/19 at 0011, After treatment for hypoglycemia, [...] Call MD for each episode of hypoglycemia. ALLERGY PHYSICIAN STATES GLUTOSE-15 CONTAINS GLUCOSE 40% W/W (50% [...] Julissa Eaton, ARMANI) 0813 (Given - Provider: eKndy Nicole RN) insulin lispro (HumaLOG) injection 1-2 [...] not met)1157 (Given - Provider: Kendy Nicole, ARMANI) ketorolac (TORADOL) injection 15 mg (COMPLETED) 15 [...] of hypoglycemia., Indications: hypoglycemic disorder 101 ([facility] Hold - Provider: Automatic Transfer Provider - Reason: Patient not available)1722 ([facility] Unhold - Provider: Ryann Mcqueen [...] Call MD for each episode of hypoglycemia. ALLERGY PHYSICIAN STATES GLUTOSE-15 CONTAINS GLUCOSE 40% W/W (50% W/V), Indications: hypoglycemic disorder 1011 ([facility] Hold - Provider: Automatic Transfer Provider - Reason: Patient not available)1722 ([facility] Unhold - Provider: Ryann Mcqueen [...] each episode of hypoglycemia., Indications: Hypoglycemia 101 ([facility] Hold - Provider: Automatic Transfer Provider - Reason: Patient not available)1722 ([facility] Unhold - Provider: Ryann Mcqueen, [...] Indications: Diabetes Mellitus 1603 (Given - Provider: Lindsya Negron RN) ondansetron (ZOFRAN) injection 4 mg(Linked Group 2) 4 mg, intravenous, Administer over 2 Minutes, Every 6 hours PRN, nausea, vomiting, if not tolerating PO, Starting on Thu05/25/19 at 1723, Indications: nausea and vomiting 1121 [facility]: Kendy Nicole, ARMANI) ondansetron ODT [...] Call MD for each episode of hypoglycemia. ALLERGY PHYSICIAN STATES GLUTOSE-15 CONTAINS GLUCOSE 40% W/W (50% [...] 05/21/2019 documented in this encounter Care Teams Special Effects Designer Relationship Specialty Start Date End Date Wilber Cleaning Jr., MD [address] [place] [id number] PCP - General 07/03/16 07/15/20 documented as of this encounter
--- OUTSIDE RECORDS SUMMARY | 2024-03-25 11:06 | XMS_ITS | Encounter Summary ---
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 Aislinn Goldsmith, PSYCHIATRIC TECHNICIAN 06/09/2019 06/09/2019 06/09/2019 4:20 PM C DT documented as of this encounter Care Teams Laminated Plastics Assembler And Gluer Relationship Specialty Start Date End Date Wilber Cleaning Jr., MD [address] [place] [address] PCP - General 07/03/16 07/15/20 Ryann Galdamez PA [address] [place] [address] PCP - General Crushing Mill Operator 07/16/20 04/01/21 documented as of this encounter
--- OUTSIDE RECORDS SUMMARY | 2024-03-25 11:06 | XMS_ITS | Encounter Summary ---
Author Organization [facility] Address [address] [place] [address] Phone Care Team Providers Care Bag Bailer Name Role Phone Hermila Calhoun MD, Wilber Martinez Primary Care Provider Encounter Details Date Type Department Care Team (Latest Contact Info) Description 04/20/2019 Anticoagulation Telephone Call [facility] Cardiology [address] [facility] [address] [place] [address] [place] [address] Cathleen Walker MD [address] [facility] [address] [address] Atrial fibrillation, unspecified type (CMS/HCC) Social History Tobacco Use Types Packs/Day Years Used Date Smoking Tobacco: Never Smokeless Tobacco: Never Comments Unknown Sex and Gender Information Value Date Recorded Sex Assigned at Not on file 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
--- OUTSIDE RECORDS SUMMARY | 2024-03-25 11:06 | XMS_ITS | Encounter Summary ---
Author Organization [facility] Address [address] [place] [address] Phone Care Team Providers Care Machine Operator Hay Stacker Name Role Phone Hermila Calhoun MD, Wilber A. 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
--- OUTSIDE RECORDS SUMMARY | 2024-03-25 11:06 | XMS_ITS | Encounter Summary ---
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
--- OUTSIDE RECORDS SUMMARY | 2024-03-25 11:06 | XMS_ITS | Encounter Summary ---
Author Organization [facility] Address [address] [place] [address] Care Team Providers Care Phd Internship Name Role Phone Hermila Calhoun MD, Wilber Martinez Primary Care Provider Encounter Details Date Type Department Care Team (Latest Contact Info) Description 05/21/2019 7:33 PM JACQUARD FIXER - 05/21/2019 7:34 PM JACQUARD FIXER Hospital Encounter [facility] [address] [place] [address] Discharge Disposition: Discharge to home or self care Social History Tobacco Use Types Packs/Day Years Used Date Smoking Tobacco: Never Smokeless Tobacco: Never Comments Unknown Sex and Gender Information Value Date Recorded Sex Assigned at Not on file Legal Sex Female 4:20 AM JACQUARD FIXER Gender Identity Not on file Sexual Orientation [...] OF OUTSIDE FILMS ED 05/21/2019 7:33 PM JACQUARD FIXER documented in this encounter Results * XR Outside Reference (05/21/2019 7:33 PM JACQUARD FIXER) Impressions [facility] - 05/21/2019 7:33 PM JACQUARD FIXER These images are for Reference purposes only and have not been reviewed by [facility] Radiology. ??There will be no report generated by a [facility] Radiologist. Narrative [facility] - 05/21/2019 7:33 PM JACQUARD FIXER EXAMINATION: ??Images For Reference Purposes Only Alessandro Nahun Malone MD IMG XR PROCEDURES Final Result [facility] documented in this encounter Visit Diagnoses Not on filedocumented in this encounter Care Teams Phd Internship Relationship Specialty Start Date End Date Wilber Cleaning Jr., MD [address] [place] [address] PCP - General 07/03/16 07/15/20 documented as of this encounter
--- OUTSIDE RECORDS SUMMARY | 2024-03-25 11:06 | XMS_ITS | Encounter Summary ---
Author Organization [facility] Address [address] [place] [address] Phone Care Team Providers Care Vp Of Technology Name Role Phone Hermila Calhoun MD, Wilber Martinez Primary Care Provider Encounter Details Date Type Department Care Team (Latest Contact Info) Description 05/19/2019 Anticoagulation Telephone Call [facility] [address] Office [address] [place] [address] Cathleen Walker MD [address] [facility] [address] [place] [address] Atrial fibrillation, unspecified type (CMS/HCC) Social History Tobacco Use Types Packs/Day Years Used Date Smoking Tobacco: Never Smokeless Tobacco: Never Comments Unknown Sex and Gender Information Value Date Recorded Sex Assigned at Not on file 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
--- OUTSIDE RECORDS SUMMARY | 2024-03-25 11:06 | XMS_ITS | Encounter Summary ---
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 [...] Hall RN HYDROmorphone (DILAUDID) injection 0.2 mg [[id number]] Ordering Provider: Kaveh Charles MD Status: Dispensed [...] RN insulin lispro (HumaLOG) injection 1-3 Units [[id number]] Ordering Provider: Yoly Medellin MD Status: Completed [...] Negron RN oxyCODONE (ROXICODONE) tablet 5 mg [[id number]] Ordering Provider: Suzie Wu MD Status: Dispensed Ordered On: 05/26/19 0530 Start: 05/26/19 0545 Dose (Remaining/Total): 5 mg (--/--) Route: oral Frequency: Every 4 hours Rate/Duration: -- / -- Timestamps Action Dose Route Other Information 05/27/19 0618 Given 5 mg oral Performed by: Denisa Galdamez RN metoprolol (LOPRESSOR) injection 5 mg [[id number]] Ordering Provider: Ryann Ribeiro MD Status: Completed [...] Problem: Open fracture of left distal femur ([facility]) [S72.402B] More... Elopement Risk Date/Time Elopement Risk User 05/22/19 0651 No risk JLH 05/22/19 0500 No risk Intake/Output 05/24/19 0700 - 05/25/19 0659 05/25/19 0700 - 05/26/19 0659 05/26/19 07 - 05/27/19 0659 Total Total [phone] Total Intake (ml) 20 3050 -- 500 -- 500 Output (ml) [phone] Net (ml) -680 2120 -400 175 -475 [...] record. Thank you, Mary Umana RN, MSN, [facility] [phone] * Plan of Care - Moriah Hall [...] was found to be excellent. Leg length sabianist was confirmed. The rotation was marked. The [...] available during skin closure. Kaveh Charles M.D. Psychological Stress Evaluator, Orthopaedic Surgery * Plan of Care - [...] continue to follow for needs A Roberto CM [phone] For evening case management needs please contact the human resources assistant manager at [phone]. For weekend and holiday needs please call [phone]. * Plan of Care - Holly Leonard [...] Shift: pain control Summary: * Kory of Garcia - Mary Lamar RN - 05/23/2019 1:49 [...] AM CDT No yumiko hugger used. Warm [place] was used * Op Note - Cuba Castro MD - 05/22/2019 8:13 AM CDT Date of Surgery: .05/22/19 Pre-operative Diagnosis: 1. Comminuted open left distal femur fracture, type 1 Post-operative diagnosis: 1. Same as above Operative Procedure: 1. Irrigation and excisional debridement of nonviable subcutaneous tissue and bone from left distal femur fracture Attending Surgeon: Cuba Castro MD, M.Sc. Boot Turner: 1. Lina Elizabeth MD Anesthesia: General Blood [...] resulting from a laceration of a small key account coordinator secondary to her fracture. This was cauterized. [...] Resident - Assisting Anesthesiologist: Daryn Jaramillo MD FIRE INVESTIGATION MANAGER: Mehul Dias CRNA Student Nurse Wire Mesh Knitter: Daya Baldwin RN Cereal Chemist: Aurelia Pederson RN Scrub: ST Jeromy DATE OF SURGERY : 05/22/2019 Preoperative Diagnosis: Pre-op Diagnosis * Other type I or II open fracture of distal end of left femur, initial encounter ([facility]) [S72.135B] Postoperative Diagnosis: Post-op Diagnosis * Other type I or II open fracture of distal end of left femur, initial encounter ([facility]) [S72.382B] Procedure(s): Procedure(s) (LRB): INCISION AND DRAINAGE - [...] Berny Carrera MD - 05/21/2019 7:40 PM DIAPHRAGM BUILDER Associated Order(s): ECG 12 lead Procedure ECG [...] in the ED Berny Carrera MD 05/21/191939 HRAGM BUILDER * ED Pre-Arrival Note - Lina Wyatt RN - 05/21/2019 4:17 PM DIAPHRAGM BUILDER Pre-Arrival Note Pt accepted as Level [address] Panagos, report called by RACHID Flores. Pt had a ground level fall today. - LOC. Head CT negative. Pt has a comminuted L femur fracture into the knee joint with dislocationof the knee. PMS intact. VSS at time of report. Lina Wyatt, RN HRAGM BUILDER documented in this encounter Plan of Treatment [...] of shaft of left femur, initial encounter ([facility]) Special Needs Hoods POCT GLUCOSE DEVICE [...] GLUCOSE DEVICE Routine 05/22/2019 1 2:39 AM DIAPHRAGM BUILDER B CHECK SAMPLE STAT 05/21/2019 11:48 PM DIAPHRAGM BUILDER POCT GLUCOSE DEVICE Routine 05/21/2019 1 1:[address] KNEE LEFT WO CONTRAST ED 05/21/2019 10:21 PM [address]HRAGM BUILDER NEURO CT MR OUTSIDE CONSULT ED 05/21/2019 8:[address] CERVICAL SPINE WO CONTRAST ED 05/21/2019 8:29 PM DIAPHRAGM BUILDER XR KNEE LEFT 1 OR 2 VIEWS ED 05/21/2019 8:26 PM DIAPHRAGM BUILDER XR PELVIS 1 OR 2 VIEWS ED 05/21/2019 8:26 PM DIAPHRAGM BUILDER XR FEMUR LEFT 2 OR MORE VIEWS ED 05/21/2019 8:25 PM DIAPHRAGM BUILDER XR CHEST 1 VIEW ED 05/21/2019 8:24 PM DIAPHRAGM BUILDER DIFFERENTIAL AUTO STAT 05/21/2019 7:4 3 PM DIAPHRAGM BUILDER CBC WITH AUTO DIFFERENTIAL STAT 05/21/2019 7:43 PM DIAPHRAGM BUILDER APTT STAT 05/21/2019 7:43 PM DIAPHRAGM BUILDER PROTIME-INR STAT 05/21/2019 7:43 PM DIAPHRAGM BUILDER TYPE AND SCREEN STAT 05/21/2019 7:43 PM DIAPHRAGM BUILDER COMPREHENSIVE METABOLIC PANEL STAT 05/21/2019 7:43 PM DIAPHRAGM BUILDER ECG 12-LEAD STAT 05/21/2019 7:40 PM DIAPHRAGM BUILDER XR TRANSFER OF OUTSIDE FILMS ED 05/21/2019 7:33 PM DIAPHRAGM BUILDER POCT GLUCOSE DEVICE Routine 05/21/2019 7 :27 PM DIAPHRAGM BUILDER documented in this encounter Results * (ABNORMAL) POCT glucose (05/27/2019 11:49 AM CDT) Glucose, POC 213(H) 70 - 199 mg/dL [facility] Blood specimen (specimen) 05/27/2019 11:49 AM CDT 05/27/2019 11:49 AM CDT Kaveh Charles MD LAB POCT ORDERABLES - [place]STIN[place] CE Final Result Performing Organization Address [facility] de Phone Number [facility] Department [place] [address] * POCT glucose (05/27/2019 7:30 AM CDT) Glucose, POC 176 70 - 199 mg/dL [facility] Blood specimen (specimen) 05/27/2019 7:30 AM CDT 05/27/2019 7:30 AM CDT Kaveh Charles MD LAB POCT ORDERABLES - [place]STIN[place] CE Final Result Performing Organization Address City/[facility] Co de Phone Number [facility] Department of [employer] [place] [address] * POCT glucose (05/27/2019 4:35 AM CDT) Glucose, POC 174 70 - 199 mg/dL [facility] Blood specimen (specimen) 05/27/2019 4:35 AM CDT 05/27/2019 4:35 AM CDT Kaveh Charles MD LAB POCT ORDERABLES - [place]STIN[place] CE Final Result Performing Organization Address [facility] Co de Phone Number [facility] [place] [address] * POCT glucose (05/27/2019 1:07 AM CDT) Glucose, POC 170 70 - 199 mg/dL [facility] Blood specimen (specimen) 05/27/2019 1:07 AM CDT 05/27/2019 1:07 AM CDT Steve Garcia MD LAB POCT ORDERABLES - DEV ICE Final Result Performing Organization Address [facility] Co de Phone Number [facility] [place] [address] * (ABNORMAL) POCT glucose (05/26/2019 9:55 PM CDT) [facility] Glucose, POC 235(H) 70 - 199 mg/dL [facility] Blood specimen (specimen) 05/26/2019 9:55 PM CDT 05/26/2019 9:55 PM CDT Steve Garcia MD LAB POCT ORDERABLES - DEV ICE Final Result Performing Organization Address [facility] de Phone Number [facility] [place] [address] * Differential, auto (05/26/2019 9:52 PM CDT) Neutrophil abs 5.2 1.7 - 6.5 K/cumm [facility] Imm gran abs 0.0 0.0 - 0.1 K/cumm [facility] Lymphocyte abs 1.2 0.8 - 3.3 K/cumm [facility] Monocyte abs 0.6 0.2 - 0.8 K/cumm [facility] Eosinophil abs 0.1 0.0 - 0.5 K/cumm [facility] Basophil abs 0.0 0.0 - 0.1 K/cumm [facility] Neutrophil pct 72.9 % [facility] Comment: Interpretive Data Percent cell count reference ranges are not reported, since discordance with absolute values may lead to misinterpretation of CBC data. Current Interpretive Data was last revised on 2017. Imm gran pct 0.7 % [facility] Comment: Interpretive Data Percent cell count reference ranges are not reported, since discordance with absolute values may lead to misinterpretation of CBC data. Current Interpretive Data was last revised on 2017. Lymphocyte pct 17.4 % [facility] Comment: Interpretive Data Percent cell count reference ranges are not reported, since discordance with absolute values may lead to misinterpretation of CBC data. Current Interpretive Data was last revised on 2017. Monocyte pct 7.9 % [facility] Comment: Interpretive Data Percent cell count reference ranges are not reported, since discordance with absolute values may lead to misinterpretation of CBC data. Current Interpretive Data was last revised on 2017. Eosinophil pct 1.0 % [facility] Comment: Interpretive Data Percent cell count reference ranges are not reported, since discordance with absolute values may lead to misinterpretation of CBC data. Current Interpretive Data was last revised on 2017. Basophil pct 0.1 % [facility] Comment: Interpretive Data Percent cell count reference ranges are not reported, since discordance with absolute values may lead to misinterpretation of CBC data. Current Interpretive Data was last revised on 2017. Blood specimen (specimen) 05/26/2019 9:52 PM CDT 05/26/2019 10:09 PM CDT us Kaveh Charles MD LAB BLOOD ORDERABLES Final Result [facility] Department of Laboratories [place], [place] [id number] * (ABNORMAL) Basic metabolic panel (05/26/2019 9:52 PM CDT) Sodium 134(L) 135 - 145 mmol/L [facility] Potassium, pl 4.2 3.3 - 4.9 mmol/L [facility] Chloride 104 97 - 110 mmol/L [facility] CO2 25 22 - 32 mmol/L [facility] Anion gap 5 2 - 15 mmol/L [facility] BUN 17 8 - 25 mg/dL [facility] Creatinine 0.45(L) 0.60 - 1.10 mg/dL [facility] Glucose 222(H) 70 - 199 mg/dL [facility] Comment: Interpretive Data Fasting glucose >/= [...] 2017. Calcium 8.3(L) 8.5 - 10.3 mg/dL [facility] Blood specimen (specimen) 05/26/2019 9:52 PM CDT 05/26/2019 10:09 PM CDT Kaveh Charles MD LAB BLOOD ORDERABLES Final Result [facility] Department [place] [address] * (ABNORMAL) CBC with auto differential (05/26/2019 9:52 PM CDT) Pathologist [facility] WBC 7.1 3.8 - 9.9 K/cumm [facility] Hgb 8.9(L) 11.9 - 15.5 g/dL [facility] Hct 27.5(L) 35.6 - 45.5 % [facility] Plt 210 150 - 400 K/cumm [facility] MPV 10.0 9.1 - 12.3 fL [facility] RBC 2.80(L) 3.90 - 5.20 M/cumm [facility] MCV 98.2(H) 81.3 - 96.4 fL [facility] MCH 31.8 27.1 - 33.3 pg [facility] MCHC 32.4 32.3 - 35.7 g/dL [facility] RDW CV 15.2(H) 11.1 - 14.9 % [facility] RDW SD 54.1(H) 35.7 - 48.1 fL [facility] NRBC abs 0.00 0.00 - 0.01 K/cumm [facility] Blood specimen (specimen) 05/26/2019 9:52 PM CDT 05/26/2019 10:09 PM CDT Kaveh Charles MD LAB BLOOD ORDERABLES Final Result Performing Organization Address [facility] de Phone Number [facility] Department of [employer] [place] [address] * (ABNORMAL) Protime-INR (05/26/2019 9:52 PM CDT) [facility] PT 13.7(H) 8.6 - 13.0 sec [facility] INR 1.3(H) 0.8 - 1.2 [facility] Comment: Interpretive data Oral anticoagulant therapeutic [...] BLOOD ORDERABLES Final Result Performing Organization Address [facility] de Phone Number [facility] [place] [address] * POCT glucose (05/26/2019 3:46 PM CDT) Glucose, POC 188 70 - 199 mg/dL [facility] Blood specimen (specimen) 05/26/2019 3:46 PM CDT 05/26/2019 3:46 PM CDT Kaveh Charles MD LAB POCT ORDERABLES - [place]STIN[place] CE Final Result Performing Organization Address City/[facility] Co de Phone Number [facility] [place] [address] * (ABNORMAL) POCT glucose (05/26/2019 11:47 AM CDT) Glucose, POC 202(H) 70 - 199 mg/dL [facility] Blood specimen (specimen) 05/26/2019 11:47 AM CDT 05/26/2019 11:47 AM CDT Kaveh Charles MD LAB POCT ORDERABLES - DESTINEE CE Final Result Performing Organization Address [facility] Co de Phone Number [facility] [employer] [place] [address] * (ABNORMAL) POCT glucose (05/26/2019 9:25 AM CDT) Glucose, POC 216(H) 70 - 199 mg/dL [facility] Blood specimen (specimen) 05/26/2019 9:25 AM CDT 05/26/2019 9:25 AM CDT Kaveh Charles MD LAB POCT ORDERABLES - DESTINEE CE Final Result Performing Organization Address City/[facility] Co de Phone Number [facility] [employer] [place] [address] * POCT glucose (05/26/2019 6:08 AM CDT) Glucose, POC 160 70 - 199 mg/dL [facility] Blood specimen (specimen) 05/26/2019 6:08 AM CDT 05/26/2019 6:08 AM CDT Kaveh Charles MD LAB POCT ORDERABLES - [place]STINEE CE Final Result Performing Organization Address City/[facility] Co de Phone Number [facility] Department [place] [address] * POCT glucose (05/25/2019 11:04 PM CDT) Glucose, POC 174 70 - 199 mg/dL [facility] Blood specimen (specimen) 05/25/2019 11:04 PM CDT 05/25/2019 11:04 PM CDT Kaveh Charles MD LAB POCT ORDERABLES - DESTINEE CE Final Result Performing Organization Address [facility] de Phone Number [facility] Department [place] [address] * Differential, auto (05/25/2019 10:42 PM CDT) Neutrophil abs 5.4 1.7 - 6.5 K/cumm [facility] Imm gran abs 0.0 0.0 - 0.1 K/cumm [facility] Lymphocyte abs 1.2 0.8 - 3.3 K/cumm [facility] Monocyte abs 0.7 0.2 - 0.8 K/cumm [facility] Eosinophil abs 0.0 0.0 - 0.5 K/cumm [facility] Basophil abs 0.0 0.0 - 0.1 K/cumm [facility] Neutrophil pct 73.2 % [facility] Comment: Interpretive Data Percent cell count reference ranges are not reported, since discordance with absolute values may lead to misinterpretation of CBC data. Current Interpretive Data was last revised on 2017. Imm gran pct 0.4 % [facility] Comment: Interpretive Data Percent cell count reference ranges are not reported, since discordance with absolute values may lead to misinterpretation of CBC data. Current Interpretive Data was last revised on 2017. Lymphocyte pct 15.8 % [facility] Comment: Interpretive Data Percent cell count reference ranges are not reported, since discordance with absolute values may lead to misinterpretation of CBC data. Current Interpretive Data was last revised on 2017. Monocyte pct 9.8 % [facility] Comment: Interpretive Data Percent cell count reference ranges are not reported, since discordance with absolute values may lead to misinterpretation of CBC data. Current Interpretive Data was last revised on 2017. Eosinophil pct 0.4 % [facility] Comment: Interpretive Data Percent cell count reference ranges are not reported, since discordance with absolute values may lead to misinterpretation of CBC data. Current Interpretive Data was last revised on 2017. Basophil pct 0.4 % [facility] Comment: Interpretive Data Percent cell count reference ranges are not reported, since discordance with absolute values may lead to misinterpretation of CBC data. Current Interpretive Data was last revised on 2017. Blood specimen (specimen) 05/25/2019 10:42 PM CDT 05/25/2019 11:36 PM CDT Berny Carrera MD LAB BLOOD ORDERABLES Sri l Result [facility] Department [place] [address] * (ABNORMAL) Protime-INR (05/25/2019 10:42 PM CDT) PT 13.3(H) 8.6 - 13.0 sec [facility] INR 1.2 0.8 - 1.2 [facility] Comment: Interpretive data Oral anticoagulant therapeutic [...] BLOOD ORDERABLES Final Result Performing Organization Address City/[facility]/ZIP Co de Phone Number [facility] Department [place] [address] * (ABNORMAL) CBC with auto differential (05/25/2019 10:42 PM CDT) [facility] WBC 7.4 3.8 - 9.9 K/cumm [facility] Hgb 9.2(L) 11.9 - 15.5 g/dL [facility] Hct 28.7(L) 35.6 - 45.5 % [facility] Plt 232 150 - 400 K/cumm [facility] MPV 10.4 9.1 - 12.3 fL [facility] RBC 2.95(L) 3.90 - 5.20 M/cumm [facility] MCV 97.3(H) 81.3 - 96.4 fL [facility] MCH 31.2 27.1 - 33.3 pg [facility] MCHC 32.1(L) 32.3 - 35.7 g/dL [facility] RDW CV 15.0(H) 11.1 - 14.9 % [facility] RDW SD 52.3(H) 35.7 - 48.1 fL [facility] NRBC abs 0.00 0.00 - 0.01 K/cumm [facility] Blood specimen (specimen) 05/25/2019 10:42 PM CDT 05/25/2019 11:36 PM CDT Kaveh Charles MD LAB BLOOD ORDERABLES Final Result [facility] Department [place] [address] * POCT glucose (05/25/2019 9:08 PM CDT) [facility] Glucose, POC 167 70 - 199 mg/dL [facility] Blood specimen (specimen) 05/25/2019 9:08 PM CDT 05/25/2019 9:08 PM CDT Kaveh Charles MD LAB POCT ORDERABLES - DESTINEE CE Final Result Performing Organization Address City/[facility]/ZIP Co de Phone Number [facility] Department [place] [address] * (ABNORMAL) Basic metabolic panel (05/25/2019 8:30 PM CDT) [facility] Sodium 137 135 - 145 mmol/L [facility] Potassium, pl 4.1 3.3 - 4.9 mmol/L [facility] Chloride 104 97 - 110 mmol/L [facility] CO2 29 22 - 32 mmol/L [facility] Anion gap 4 2 - 15 mmol/L [facility] BUN 18 8 - 25 mg/dL [facility] Creatinine 0.62 0.60 - 1.10 mg/dL [facility] Glucose 171 70 - 199 mg/dL [facility] Comment: Interpretive Data Fasting glucose >/= [...] 2017. Calcium 8.1(L) 8.5 - 10.3 mg/dL [facility] Blood specimen (specimen) 05/25/2019 8:30 PM CDT 05/25/2019 11:36 PM CDT Kaveh Charles MD LAB BLOOD ORDERABLES Final Result Performing Organization Address [facility]/ZIP Co de Phone Number [facility] [place] [address] * POCT glucose (05/25/2019 4:57 PM CDT) Glucose, POC 175 70 - 199 mg/dL [facility] Blood specimen (specimen) 05/25/2019 4:57 PM CDT 05/25/2019 4:57 PM CDT Kaveh Charles MD LAB POCT ORDERABLES - [place]STINEE CE Final Result Performing Organization Address City/[facility] [place] [address] * (ABNORMAL) POCT glucose (05/25/2019 3:05 PM CDT) Glucose, POC 209(H) 70 - 199 mg/dL [facility] Blood specimen (specimen) 05/25/2019 3:05 PM CDT 05/25/2019 3:05 PM CDT Kaveh Charles MD LAB POCT ORDERABLES - DESTINEE CE Final Result Performing Organization Address City/[facility] Co de Phone Number [facility] [place] [address] * XR Knee Left 1 or 2 [...] BJ Glucose 204(H) 70 - 199 mg/dL [facility] Comment: Interpretive Data Fasting glucose >/= [...] 2017. Calcium 8.3(L) 8.5 - 10.3 mg/dL [facility] Blood specimen (specimen) 05/25/2019 2:19 PM CDT 05/25/2019 2:44 PM CDT Kaveh Charles MD LAB BLOOD ORDERABLES Final Result [facility] Department [place] [address] * (ABNORMAL) CBC without differential (05/25/2019 2:19 PM CDT) WBC 6.7 3.8 - 9.9 K/cumm [facility] Hgb 9.9(L) 11.9 - 15.5 g/dL [facility] Hct 30.5(L) 35.6 - 45.5 % [facility] Plt 212 150 - 400 K/cumm [facility] MPV 10.4 9.1 - 12.3 fL [facility] RBC 3.09(L) 3.90 - 5.20 M/cumm [facility] MCV 98.7(H) 81.3 - 96.4 fL [facility] MCH 32.0 27.1 - 33.3 pg [facility] MCHC 32.5 32.3 - 35.7 g/dL [facility] RDW CV 14.6 11.1 - 14.9 % [facility] RDW SD 51.8(H) 35.7 - 48.1 fL [facility] NRBC abs 0.00 0.00 - 0.01 K/cumm [facility] Blood specimen (specimen) 05/25/2019 2:19 PM CDT 05/25/2019 2:44 PM CDT Kaveh Charles MD LAB BLOOD ORDERABLES Final Result Performing Organization Address [facility] de Phone Number [facility] [place] [address] * (ABNORMAL) Protime-INR (05/25/2019 2:19 PM CDT) PT 13.3(H) 8.6 - 13.0 sec [facility] INR 1.2 0.8 - 1.2 [facility] Comment: Interpretive data Oral anticoagulant therapeutic [...] BLOOD ORDERABLES Final Result Performing Organization Address [facility] de Phone Number [facility] [place] [address] * (ABNORMAL) POC Blood Gas and Chemistries, Arterial - (05/25/2019 1:51 PM CDT) pH, Art 7.37 7.35 - 7.45 [facility] pCO2, Art POC 43 35 - 45 mmHg [facility] pO2, Art POC 252(H) 83 - 108 mmHg [facility] Na, POC 138 135 - 145 mmol/L [facility] K POC 3.8 3.3 - 4.9 mmol/L [facility] Cl, POC 105 97 - 110 mmol/L [facility] Ionized Ca, POC 4.92 4.50 - 5.10 mg/dL [facility] Glucose, POC 177 70 - 199 mg/dL [facility] Lactate, POC 1.3 0.7 - 2.2 mmol/L [facility] SO2 (tatiana) arterial 100(H) 90 - 95 % [facility] Base excess, POC -0.6 mmol/L [facility] HCO3, Art POC 25 20 - 30 mmol/L [facility] Hct, POC 26.0(L) 36.3 - 45.3 % [facility] O2 Sat, Art POC (Calc) 100 % [facility] Total Hb, POC 8.8(L) 11.9 - 15.5 g/dL [facility] Blood specimen (specimen) 05/25/2019 1:51 PM CDT 05/25/2019 1:51 PM CDT Kaveh Charles MD LAB POCT ORDERABLES - DESTINEE CE Final Result [facility] Department [place] [address] * Transfuse RBC (05/25/2019 1:36 PM CDT) Blood specimen (specimen) Paul Kelly MD BLOOD TRANSFUSION ORDERABLES Final Result [facility] [place] [address] * (ABNORMAL) POC Blood Gas and Chemistries, Venous - (05/25/2019 1:29 PM CDT) pH, Al[place] POC 7.35 7.32 - 7.43 [facility] pCO2, alton POC 32(L) 40 - 50 mmHg [facility] pO2, alton POC 45 mmHg [facility] Na, POC 141 135 - 145 mmol/L [facility] K POC 2.6(L) 3.3 - 4.9 mmol/L [facility] Cl, POC 118(H) 97 - 110 mmol/L [facility] Ionized Ca, POC 3.44(L) 4.50 - 5.10 mg/dL [facility] Glucose, POC 116 70 - 199 mg/dL [facility] Lactate, POC 1.0 0.7 - 2.2 mmol/L [facility] O2 Sat, [place] POC ([place]) 81 % [facility] Base excess, POC -6.8 mmol/L [facility] HCO3, [place] POC 18(L) 20 - 30 mmol/L [facility] Hct, POC 19.0(L) 36.3 - 45.3 % [facility] Total Hb, POC 6.2(L) 11.9 - 15.5 g/dL [facility] O2 Sat, [place] POC (Calc) 78 % [facility] Blood specimen (specimen) 05/25/2019 1:29 PM CDT 05/25/2019 1:29 PM CDT us Kaveh Charles MD LAB POCT ORDERABLES - [place] CE Final Result [facility] Department of [employer] [place] [address] * POCT glucose (05/25/2019 1:00 PM CDT) Glucose, POC 156 70 - 199 mg/dL [facility] Blood specimen (specimen) 05/25/2019 1:00 PM CDT 05/25/2019 1:00 PM CDT Kaveh Charles MD LAB POCT ORDERABLES - [place] CE Final Result [facility] [employer] [place] [address] * POCT glucose (05/25/2019 10:41 AM CDT) Glucose, POC 170 70 - 199 mg/dL [facility] Blood specimen (specimen) 05/25/2019 10:41 AM CDT 05/25/2019 10:41 AM CDT us Kaveh Charles MD LAB POCT ORDERABLES - [place] CE Final Result Performing Organization Address [facility]/[place] [address] * Type and screen (05/25/2019 10:01 AM CDT) Gian, indirect Negative [facility] ABO Rh O Positive [facility] Blood specimen (specimen) 05/25/2019 10:01 AM CDT 05/25/2019 10:15 AM CDT Narrative [facility] - 05/25/2019 11:03 AM CDT Has the patient had Daratumumab (Darzalex) in the past 6 months?->Unknown us Paulina France NP LAB BLOOD BANK TEST ORDERAB LES Final Result Performing Organization Address City/[facility]/[place] [address] * Prepare RBC: 2 Units (05/25/2019 9:59 AM CDT) Product code [id number] [facility] Unit Number [id number] [facility] Product Blood Type OPOS [facility] Dispense Status RETURNED [facility] Product code [id number] [facility] Unit Number [id number] [facility] Product Blood Type OPOS [facility] Dispense Status PRESUMED TRANSFUSED [facility] Blood specimen (specimen) 05/25/2019 9:59 AM CDT 05/25/2019 9:59 AM CDT Narrative [facility] - 05/26/2019 12:49 AM CDT Are special requirements needed? (all products are leukoreduced)->No Date required:-[id number] LRRBC # of [id number] Reasons:-Intra-op transfusion} us Paul Kelly MD BLOOD BANK PRODUCT ORDERABLES Final Result Performing Organization Address [facility] Co de Phone Number [facility] [place] [address] * POCT glucose (05/25/2019 7:54 AM CDT) Pathologist [facility] Glucose, POC 155 70 - 199 mg/dL [facility] Blood specimen (specimen) 05/25/2019 7:54 AM CDT 05/25/2019 7:54 AM CDT Kaveh Charles MD LAB POCT ORDERABLES - [place] CE Final Result Performing Organization Address [facility] de Phone Number [facility] [place] [address] * (ABNORMAL) Urinalysis, microscopic only (05/25/2019 6:11 AM CDT) Pathologist [facility] WBC, ur 0-5 0 - 5 /HPF [facility] RBC, ur 0-2 0 - 2 /HPF [facility] Epithelial cells, squamous, ur 1-5 0 - 5 /HPF [facility] Mucous, ur Present(A) [facility] Culture Reflex Comment Reflex conditions for urine culture (WBC >10) not met. [facility] Urine 05/25/2019 6:11 AM CDT 05/25/2019 6:27 AM CDT Berny Carrera MD LAB URINE ORDERABLES Sri l Result Performing Organization Address [facility] Co de Phone Number [facility] [place] [address] * (ABNORMAL) Urinalysis reflex to microscopic and culture Urine (05/25/2019 6:11 AM CDT) Color, ur Yellow Yellow [facility] Clarity, ur Clear Clear [facility] Specific gravity, ur 1.023 1.010 - 1.025 [facility] pH, urine 6 [facility] Protein, ur ql 1+(A) Negative [facility] Glucose, ur ql Negative Negative [facility] Ketones, ur Trace Negative [facility] Bilirubin, ur Negative Negative [facility] Blood, ur Negative Negative [facility] Urobilinogen, ur <2.0 <2.0 mg/dL [facility] Nitrite, ur Negative Negative [facility] Leukocyte esterase, ur Negative Negative [facility] UA reflex comment Reflex to microscopic UA will be performed. [facility] Urine 05/25/2019 6:11 AM CDT 05/25/2019 6:27 AM CDT Narrative [facility] - 05/25/2019 6:39 AM CDT ?? Urine pH is affected by diet, medications, systemic acid-base disturbances, and renal tubular function. ??pH may affect urinary stone formation. ??For example, urine pH below 6.0 may help reduce the tendency for calcium phosphate stones and pH greater than 6.0 may reduce the tendency for uric acid stone formation. Source: [employer]. Last revised 03-26-2017 Urine pH is affected by diet, medications, systemic acid-base disturbances, and renal tubular function. ??pH may affect urinary stone formation. ??For example, urine pH below 6.0 may help reduce the tendency for calcium phosphate stones and pH greater than 6.0 may reduce the tendency for uric acid stone formation. Source: [employer]. Last revised 03-26-2017 us Berny Carrera MD LAB MICROBIOLOGY - GENERA L ORDERABLES Final Result [facility] Department [place] [address] * POCT glucose (05/25/2019 3:34 AM CDT) Glucose, POC 164 70 - 199 mg/dL [facility] Blood specimen (specimen) 05/25/2019 3:34 AM CDT 05/25/2019 3:34 AM CDT Kaveh Charles MD LAB POCT ORDERABLES - [place] CE Final Result Performing Organization Address [facility] de Phone Number [facility] [place] [address] * POCT glucose (05/24/2019 11:32 PM CDT) Glucose, POC 153 70 - 199 mg/dL [facility] Blood specimen (specimen) 05/24/2019 11:32 PM CDT 05/24/2019 11:32 PM CDT Kaveh Charles MD LAB POCT ORDERABLES - [place] CE Final Result Performing Organization Address [facility] de Phone Number [facility] Department [place] [address] * Magnesium (05/24/2019 10:08 PM CDT) Pathologist [facility] Magnesium 2.2 1.4 - 2.5 mg/dL [facility] Blood specimen (specimen) 05/24/2019 10:08 PM CDT 05/24/2019 10:25 PM CDT Kaveh Charles MD LAB BLOOD ORDERABLES Final Result Performing Organization Address [facility] de Phone Number [facility] [place] [address] * Differential, auto (05/24/2019 10:08 PM CDT) Neutrophil abs 4.0 1.7 - 6.5 K/cumm [facility] Imm gran abs 0.0 0.0 - 0.1 K/cumm [facility] Lymphocyte abs 1.6 0.8 - 3.3 K/cumm [facility] Monocyte abs 0.7 0.2 - 0.8 K/cumm [facility] Eosinophil abs 0.1 0.0 - 0.5 K/cumm [facility] Basophil abs 0.0 0.0 - 0.1 K/cumm [facility] Neutrophil pct 62.6 % [facility] Comment: Interpretive Data Percent cell count reference ranges are not reported, since discordance with absolute values may lead to misinterpretation of CBC data. Current Interpretive Data was last revised on 2017. Imm gran pct 0.3 % [facility] Comment: Interpretive Data Percent cell count reference ranges are not reported, since discordance with absolute values may lead to misinterpretation of CBC data. Current Interpretive Data was last revised on 2017. Lymphocyte pct 24.5 % [facility] Comment: Interpretive Data Percent cell count reference ranges are not reported, since discordance with absolute values may lead to misinterpretation of CBC data. Current Interpretive Data was last revised on 2017. Monocyte pct 10.6 % [facility] Comment: Interpretive Data Percent cell count reference ranges are not reported, since discordance with absolute values may lead to misinterpretation of CBC data. Current Interpretive Data was last revised on 2017. Eosinophil pct 1.5 % [facility] Comment: Interpretive Data Percent cell count reference ranges are not reported, since discordance with absolute values may lead to misinterpretation of CBC data. Current Interpretive Data was last revised on 2017. Basophil pct 0.5 % [facility] Comment: Interpretive Data Percent cell count reference ranges are not reported, since discordance with absolute values may lead to misinterpretation of CBC data. Current Interpretive Data was last revised on 2017. Blood specimen (specimen) 05/24/2019 10:08 PM CDT 05/24/2019 10:25 PM CDT us Berny Carrera MD LAB BLOOD ORDERABLES Sri davalos Result [facility] Department [place] [address] * (ABNORMAL) Protime-INR (05/24/2019 10:08 PM CDT) PT 14.6(H) 8.6 - 13.0 sec [facility] INR 1.3(H) 0.8 - 1.2 [facility] Comment: Interpretive data Oral anticoagulant therapeutic ranges: Venous thromboembolism prophylaxis or treatment: 2.0-3.0 CARDIOLOGY Standard range: 2.0-3.0 High-intensity range: 2.5-3.5 Refer to indication-specific guidelines for appropriate target ranges for prosthetic heart valve replacement. Current interpretive data was last revised on 2019. Blood specimen (specimen) 05/24/2019 10:08 PM CDT 05/24/2019 10:18 PM CDT Kaveh Charles MD LAB BLOOD ORDERABLES Final Result [facility] Department [place] [address] * (ABNORMAL) Basic metabolic panel (05/24/2019 10:08 PM CDT) Sodium 132(L) 135 - 145 mmol/L [facility] Potassium, pl 4.3 3.3 - 4.9 mmol/L [facility] Comment:Hemolyzed; Potassium value may be falsely elevated by as much as 0.6-1.0 mmol/L. Suggest redraw and reanalysis. Chloride 100 97 - 110 mmol/L [facility] CO2 23 22 - 32 mmol/L [facility] Anion gap 9 2 - 15 mmol/L [facility] BUN 18 8 - 25 mg/dL [facility] Creatinine 0.45(L) 0.60 - 1.10 mg/dL [facility] Glucose 149 70 - 199 mg/dL [facility] Comment: Interpretive Data Fasting glucose >/= [...] 2017. Calcium 8.2(L) 8.5 - 10.3 mg/dL [facility] Blood specimen (specimen) 05/24/2019 10:08 PM CDT 05/24/2019 10:25 PM CDT Kaveh Charles MD LAB BLOOD ORDERABLES Final Result [facility] Department [place] [address] * (ABNORMAL) CBC with auto differential (05/24/2019 10:08 PM CDT) WBC 6.5 3.8 - 9.9 K/cumm [facility] Hgb 9.4(L) 11.9 - 15.5 g/dL [facility] Hct 28.7(L) 35.6 - 45.5 % [facility] Plt 194 150 - 400 K/cumm [facility] MPV 10.3 9.1 - 12.3 fL [facility] RBC 2.98(L) 3.90 - 5.20 M/cumm [facility] MCV 96.3 81.3 - 96.4 fL [facility] MCH 31.5 27.1 - 33.3 pg [facility] MCHC 32.8 32.3 - 35.7 g/dL [facility] RDW CV 13.9 11.1 - 14.9 % [facility] RDW SD 48.5(H) 35.7 - 48.1 fL [facility] NRBC abs 0.00 0.00 - 0.01 K/cumm [facility] Blood specimen (specimen) 05/24/2019 10:08 PM CDT 05/24/2019 10:25 PM CDT Kaveh Charles MD LAB BLOOD ORDERABLES Final Result Performing Organization Address City/[facility] Co de Phone Number [facility] [place] [address] * POCT glucose (05/24/2019 8:59 PM CDT) Glucose, POC 159 70 - 199 mg/dL [facility] Blood specimen (specimen) 05/24/2019 8:59 PM CDT 05/24/2019 8:59 PM CDT Kaveh Charles MD LAB POCT ORDERABLES - [place] CE Final Result Performing Organization Address [facility] Co de Phone Number [facility] [place] [address] * POCT glucose (05/24/2019 3:28 PM CDT) Glucose, POC 187 70 - 199 mg/dL [facility] Blood specimen (specimen) 05/24/2019 3:28 PM CDT 05/24/2019 3:28 PM CDT us Kaveh Charles MD LAB POCT ORDERABLES - [place] CE Final Result Performing Organization Address [facility] Co de Phone Number [facility] Department [place] [employer] [place] [address] * POCT glucose (05/24/2019 11:16 AM CDT) Glucose, POC 189 70 - 199 mg/dL [facility] Blood specimen (specimen) 05/24/2019 11:16 AM CDT 05/24/2019 11:16 AM CDT us Kaveh Charles MD LAB POCT ORDERABLES - [place] CE Final Result Performing Organization Address [facility] Co de Phone Number [facility] Department [place] [address] * POCT glucose (05/24/2019 7:54 AM CDT) Glucose, POC 161 70 - 199 mg/dL [facility] Blood specimen (specimen) 05/24/2019 7:54 AM CDT 05/24/2019 7:54 AM CDT us Kaveh Charles MD LAB POCT ORDERABLES - [place] CE Final Result Performing Organization Address City/[facility] [place] [address] * POCT glucose (05/24/2019 4:54 AM CDT) Glucose, POC 155 70 - 199 mg/dL [facility] Blood specimen (specimen) 05/24/2019 4:54 AM CDT 05/24/2019 4:54 AM CDT us Kaveh Charles MD LAB POCT ORDERABLES - [place] CE Final Result Performing Organization Address [facility] [place] [address] * POCT glucose (05/24/2019 12:43 AM CDT) Glucose, POC 155 70 - 199 mg/dL [facility] Blood specimen (specimen) 05/24/2019 12:43 AM CDT 05/24/2019 12:43 AM CDT us Kaveh Charles MD LAB POCT ORDERABLES - [place] CE Final Result Performing Organization Address City/[facility] Co de Phone Number [facility] [place] [address] * Differential, auto (05/23/2019 10:20 PM CDT) Neutrophil abs 4.7 1.7 - 6.5 K/cumm [facility] Imm gran abs 0.0 0.0 - 0.1 K/cumm [facility] Lymphocyte abs 1.5 0.8 - 3.3 K/cumm [facility] Monocyte abs 0.7 0.2 - 0.8 K/cumm [facility] Eosinophil abs 0.0 0.0 - 0.5 K/cumm [facility] Basophil abs 0.0 0.0 - 0.1 K/cumm [facility] Neutrophil pct 66.8 % [facility] Comment: Interpretive Data Percent cell count reference ranges are not reported, since discordance with absolute values may lead to misinterpretation of CBC data. Current Interpretive Data was last revised on 2017. Imm gran pct 0.4 % [facility] Comment: Interpretive Data Percent cell count reference ranges are not reported, since discordance with absolute values may lead to misinterpretation of CBC data. Current Interpretive Data was last revised on 2017. Lymphocyte pct 21.6 % [facility] Comment: Interpretive Data Percent cell count reference ranges are not reported, since discordance with absolute values may lead to misinterpretation of CBC data. Current Interpretive Data was last revised on 2017. Monocyte pct 10.2 % [facility] Comment: Interpretive Data Percent cell count reference ranges are not reported, since discordance with absolute values may lead to misinterpretation of CBC data. Current Interpretive Data was last revised on 2017. Eosinophil pct 0.7 % [facility] Comment: Interpretive Data Percent cell count reference ranges are not reported, since discordance with absolute values may lead to misinterpretation of CBC data. Current Interpretive Data was last revised on 2017. Basophil pct 0.3 % [facility] Comment: Interpretive Data Percent cell count reference ranges are not reported, since discordance with absolute values may lead to misinterpretation of CBC data. Current Interpretive Data was last revised on 2017. Blood specimen (specimen) 05/23/2019 10:20 PM CDT 05/23/2019 10:42 PM CDT Berny Carrera MD LAB BLOOD ORDERABLES Sri l Result [facility] Department [place] [address] * (ABNORMAL) Basic metabolic panel (05/23/2019 10:20 PM CDT) Pathologist [facility] Sodium 136 135 - 145 mmol/L [facility] Potassium, pl 3.8 3.3 - 4.9 mmol/L [facility] Chloride 101 97 - 110 mmol/L [facility] CO2 30 22 - 32 mmol/L [facility] Anion gap 5 2 - 15 mmol/L [facility] BUN 18 8 - 25 mg/dL [facility] Creatinine 0.59(L) 0.60 - 1.10 mg/dL [facility] Glucose 163 70 - 199 mg/dL [facility] Comment: Interpretive Data Fasting glucose >/= [...] 2017. Calcium 8.8 8.5 - 10.3 mg/dL [facility] Blood specimen (specimen) 05/23/2019 10:20 PM CDT 05/23/2019 10:42 PM CDT Kaveh Charles MD LAB BLOOD ORDERABLES Final Result [facility] Department [place] [address] * (ABNORMAL) CBC with auto differential (05/23/2019 10:20 PM CDT) Pathologist [facility] WBC 7.0 3.8 - 9.9 K/cumm [facility] Hgb 9.2(L) 11.9 - 15.5 g/dL [facility] Hct 28.1(L) 35.6 - 45.5 % [facility] Plt 186 150 - 400 K/cumm [facility] MPV 9.8 9.1 - 12.3 fL [facility] RBC 2.92(L) 3.90 - 5.20 M/cumm [facility] MCV 96.2 81.3 - 96.4 fL [facility] MCH 31.5 27.1 - 33.3 pg [facility] MCHC 32.7 32.3 - 35.7 g/dL [facility] RDW CV 13.9 11.1 - 14.9 % [facility] RDW SD 49.3(H) 35.7 - 48.1 fL [facility] NRBC abs 0.00 0.00 - 0.01 K/cumm [facility] Blood specimen (specimen) 05/23/2019 10:20 PM CDT 05/23/2019 10:42 PM CDT Kaveh Charles MD LAB BLOOD ORDERABLES Final Result Performing Organization Address City/[facility]/ZIP Co de Phone Number [facility] Department of [employer] [place] [address] * POCT glucose (05/23/2019 9:43 PM CDT) [facility] Glucose, POC 173 70 - 199 mg/dL [facility] Blood specimen (specimen) 05/23/2019 9:43 PM CDT 05/23/2019 9:43 PM CDT Kaveh Charles MD LAB POCT ORDERABLES - [place] CE Final Result Performing Organization Address [facility] Co de Phone Number [facility] Department [place] [address] * POCT glucose (05/23/2019 4:35 PM CDT) Glucose, POC 165 70 - 199 mg/dL [facility] Blood specimen (specimen) 05/23/2019 4:35 PM CDT 05/23/2019 4:35 PM CDT Kaveh Charles MD LAB POCT ORDERABLES - [place] CE Final Result Performing Organization Address [facility] Co de Phone Number [facility] [employer] [place] [address] * POCT glucose (05/23/2019 11:22 AM CDT) Glucose, POC 174 70 - 199 mg/dL [facility] Blood specimen (specimen) 05/23/2019 11:22 AM CDT 05/23/2019 11:22 AM CDT Kaveh Charles MD LAB POCT ORDERABLES - [place]STIN[place] CE Final Result Performing Organization Address [facility] [place] [address] * POCT glucose (05/23/2019 8:21 AM CDT) Glucose, POC 169 70 - 199 mg/dL [facility] Blood specimen (specimen) 05/23/2019 8:21 AM CDT 05/23/2019 8:21 AM CDT Kaveh Charles MD LAB POCT ORDERABLES - [place]STIN[place] CE Final Result Performing Organization Address [facility] [place] [address] * POCT glucose (05/23/2019 4:42 AM CDT) Glucose, POC 156 70 - 199 mg/dL [facility] Blood specimen (specimen) 05/23/2019 4:42 AM CDT 05/23/2019 4:42 AM CDT Kaveh Charles MD LAB POCT ORDERABLES - [place]STIN[place] CE Final Result Performing Organization Address City/[facility] Co de Phone Number [facility] Department [place] [address] * POCT glucose (05/23/2019 12:12 AM CDT) Glucose, POC 183 70 - 199 mg/dL [facility] Blood specimen (specimen) 05/23/2019 12:12 AM CDT 05/23/2019 12:12 AM CDT Kaveh Charles MD LAB POCT ORDERABLES - [place]STIN[place] CE Final Result Performing Organization Address [facility] de Phone Number [facility] Department [place] [address] * Differential, auto (05/22/2019 11:17 PM CDT) Neutrophil abs 5.3 1.7 - 6.5 K/cumm [facility] Imm gran abs 0.0 0.0 - 0.1 K/cumm [facility] Lymphocyte abs 1.3 0.8 - 3.3 K/cumm [facility] Monocyte abs 0.8 0.2 - 0.8 K/cumm [facility] Eosinophil abs 0.0 0.0 - 0.5 K/cumm [facility] Basophil abs 0.0 0.0 - 0.1 K/cumm [facility] Neutrophil pct 71.2 % [facility] Comment: Interpretive Data Percent cell count reference ranges are not reported, since discordance with absolute values may lead to misinterpretation of CBC data. Current Interpretive Data was last revised on 2017. Imm gran pct 0.3 % [facility] Comment: Interpretive Data Percent cell count reference ranges are not reported, since discordance with absolute values may lead to misinterpretation of CBC data. Current Interpretive Data was last revised on 2017. Lymphocyte pct 17.6 % [facility] Comment: Interpretive Data Percent cell count reference ranges are not reported, since discordance with absolute values may lead to misinterpretation of CBC data. Current Interpretive Data was last revised on 2017. Monocyte pct 10.1 % [facility] Comment: Interpretive Data Percent cell count reference ranges are not reported, since discordance with absolute values may lead to misinterpretation of CBC data. Current Interpretive Data was last revised on 2017. Eosinophil pct 0.5 % [facility] Comment: Interpretive Data Percent cell count reference ranges are not reported, since discordance with absolute values may lead to misinterpretation of CBC data. Current Interpretive Data was last revised on 2017. Basophil pct 0.3 % [facility] Comment: Interpretive Data Percent cell count reference ranges are not reported, since discordance with absolute values may lead to misinterpretation of CBC data. Current Interpretive Data was last revised on 2017. Blood specimen (specimen) 05/22/2019 11:17 PM CDT 05/22/2019 11:35 PM CDT Berny Carrera MD LAB BLOOD ORDERABLES Sri davalos Result [facility] [place] [address] * (ABNORMAL) Basic metabolic panel (05/22/2019 11:17 PM CDT) Sodium 136 135 - 145 mmol/L [facility] Potassium, pl 3.7 3.3 - 4.9 mmol/L [facility] Chloride 102 97 - 110 mmol/L [facility] CO2 29 22 - 32 mmol/L [facility] Anion gap 5 2 - 15 mmol/L [facility] BUN 25 8 - 25 mg/dL [facility] Creatinine 0.83 0.60 - 1.10 mg/dL [facility] Glucose 180 70 - 199 mg/dL [facility] Comment: Interpretive Data Fasting glucose >/= [...] 2017. Calcium 8.4(L) 8.5 - 10.3 mg/dL [facility] Blood specimen (specimen) 05/22/2019 11:17 PM CDT 05/22/2019 11:34 PM CDT Kaveh Charles MD LAB BLOOD ORDERABLES Final Result [facility] Department [place] [address] * (ABNORMAL) CBC with auto differential (05/22/2019 11:17 PM CDT) WBC 7.4 3.8 - 9.9 K/cumm [facility] Hgb 9.9(L) 11.9 - 15.5 g/dL [facility] Hct 30.3(L) 35.6 - 45.5 % [facility] Plt 203 150 - 400 K/cumm [facility] MPV 10.3 9.1 - 12.3 fL [facility] RBC 3.15(L) 3.90 - 5.20 M/cumm [facility] MCV 96.2 81.3 - 96.4 fL [facility] MCH 31.4 27.1 - 33.3 pg [facility] MCHC 32.7 32.3 - 35.7 g/dL [facility] RDW CV 13.9 11.1 - 14.9 % [facility] RDW SD 48.9(H) 35.7 - 48.1 fL [facility] NRBC abs 0.00 0.00 - 0.01 K/cumm [facility] Blood specimen (specimen) 05/22/2019 11:17 PM CDT 05/22/2019 11:35 PM CDT Kaveh Charles MD LAB BLOOD ORDERABLES Final Result Performing Organization Address [facility] Co de Phone Number [facility] [place] [address] * POCT glucose (05/22/2019 9:23 PM CDT) Glucose, POC 171 70 - 199 mg/dL [facility] Blood specimen (specimen) 05/22/2019 9:23 PM CDT 05/22/2019 9:23 PM CDT Kaveh Charles MD LAB POCT ORDERABLES - DESTINEE CE Final Result Performing Organization Address [facility] Co de Phone Number [facility] [place] [employer] [place] [address] * POCT glucose (05/22/2019 5:18 PM CDT) Glucose, POC 147 70 - 199 mg/dL [facility] Blood specimen (specimen) 05/22/2019 5:18 PM CDT 05/22/2019 5:18 PM CDT Kaveh Charles MD LAB POCT ORDERABLES - DESTINEE CE Final Result Performing Organization Address [facility] [place] [address] * POCT glucose (05/22/2019 11:21 AM CDT) Glucose, POC 171 70 - 199 mg/dL [facility] Blood specimen (specimen) 05/22/2019 11:21 AM CDT 05/22/2019 11:21 AM CDT us Steve Garcia MD LAB POCT ORDERABLES - DEV ICE Final Result Performing Organization Address [facility] [place] [address] * POCT glucose (05/22/2019 10:30 AM CDT) Glucose, POC 104 70 - 199 mg/dL [facility] Glucose comment 1 RN Notified [facility] Blood specimen (specimen) 05/22/2019 10:30 AM CDT 05/22/2019 10:30 AM CDT us Steve Garcia MD LAB POCT ORDERABLES - DEV ICE Final Result Performing Organization Address [facility] [place] [address] * POCT glucose (05/22/2019 8:29 AM CDT) Glucose, POC 131 70 - 199 mg/dL [facility] Blood specimen (specimen) 05/22/2019 8:29 AM CDT 05/22/2019 8:29 AM CDT Steve Garcia MD LAB POCT ORDERABLES - DEV ICE Final Result Performing Organization Address [facility] [place] [address] * POCT glucose (05/22/2019 6:39 AM CDT) Glucose, POC 178 70 - 199 mg/dL [facility] Blood specimen (specimen) 05/22/2019 6:39 AM CDT 05/22/2019 6:39 AM CDT us Steve Garcia MD LAB POCT ORDERABLES - DEV ICE Final Result Performing Organization Address City/[facility]/[place] [address] * POCT glucose (05/22/2019 4:59 AM CDT) Glucose, POC 190 70 - 199 mg/dL [facility] Blood specimen (specimen) 05/22/2019 4:59 AM CDT 05/22/2019 4:59 AM CDT Steve Garcia MD LAB POCT ORDERABLES - DEV ICE Final Result Performing Organization Address [facility] [place] [address] * (ABNORMAL) Protime-INR (05/22/2019 4:57 AM CDT) [facility] PT 15.1(H) 8.6 - 13.0 sec [facility] INR 1.4(H) 0.8 - 1.2 [facility] Comment: Interpretive data Oral anticoagulant therapeutic [...] ORDERABLES Sri l Result Performing Organization Address [facility] [place] [address] * POCT glucose (05/22/2019 12:39 AM DIAPHRAGM BUILDER) Glucose, POC 160 70 - 199 mg/dL [facility] Blood specimen (specimen) 05/22/2019 12:39 AM DIAPHRAGM BUILDER 05/22/2019 12:39 AM DIAPHRAGM BUILDER us Steve Garcia MD LAB POCT ORDERABLES - DEV ICE Final Result Performing Organization Address [facility] de Phone Number [facility] [place] [address] * Check Sample (05/21/2019 11:48 PM DIAPHRAGM BUILDER) ABO Rh O Positive [facility] HCLL OTHER 05/21/2019 11:4 8 PM DIAPHRAGM BUILDER 05/22/2019 12:22 AM DIAPHRAGM BUILDER us Steve Garcia MD LAB BLOOD ORDERABLES Sri l Result Performing Organization Address [facility] de Phone Number [facility] Department [place] [address] * POCT glucose (05/21/2019 11:47 PM DIAPHRAGM BUILDER) Glucose, POC 158 70 - 199 mg/dL [facility] Blood specimen (specimen) 05/21/2019 11:47 PM DIAPHRAGM BUILDER 05/21/2019 11:47 PM DIAPHRAGM BUILDER Steve Garcia MD LAB POCT ORDERABLES - DEV ICE Final Result Performing Organization Address [facility] de Phone Number [facility] [place] [address] * CT Knee Left WO Contrast (05/21/2019 10:21 PM DIAPHRAGM BUILDER) Anatomical Region Laterality Modality Lower Extremities Left Computed Tomog noel 05/21/2019 10:4 6 PM DIAPHRAGM BUILDER Impressions 05/23/2019 9:24 AM CDT 1. ??Complex [...] CT MR Outside Consult (05/21/2019 8:41 PM DIAPHRAGM BUILDER) Anatomical Region Laterality Modality N/A Computed Tomogra phy 05/21/2019 8:49 PM DIAPHRAGM BUILDER Impressions 05/22/2019 9:46 AM CDT 1. ??No [...] images may or may not represent the [place] source data set and thus may contain [...] IMAGING STUDY STUDY INITIALLY PERFORMED: 05/21/2019 at [facility]. TYPE OF STUDY: Multiple CT images [...] IMAGING STUDY STUDY INITIALLY PERFORMED: 05/21/2019 at [facility]. TYPE OF STUDY: Multiple CT images [...] images may or may not represent the [place] source data set and thus may contain [...] Cervical Spine WO Contrast (05/21/2019 8:29 PM DIAPHRAGM BUILDER) Anatomical Region Laterality Modality Spine N/A Computed Tomogra phy 05/21/2019 8:43 PM DIAPHRAGM BUILDER Addenda Addendum by Isreal Izaguirre MD PhD on 02/27/2021 9:33 PM DIAPHRAGM BUILDER Patient had follow up with ENT 12/19/20. [...] Electronically signed by: Isreal Izaguirre M.D, PHD [facility] Nahun Malone MD IM CT PROCEDURES Edite d Result - Final * XR Knee Left 1 or 2 Views (05/21/2019 8:26 PM DIAPHRAGM BUILDER) Anatomical Region Laterality Modality Lower Extremities, Knee Left Computed Radiography 05/21/2019 8:37 PM DIAPHRAGM BUILDER Impressions 05/23/2019 7:07 AM CDT 1. ??Highly [...] 1 or 2 Views (05/21/2019 8:26 PM DIAPHRAGM BUILDER) Anatomical Region Laterality Modality Body, Pelvis N/A Computed Radiogr aphy 05/21/2019 8:37 PM DIAPHRAGM BUILDER Impressions 05/23/2019 7:07 AM CDT 1. ??Highly [...] 2 or More Views (05/21/2019 8:25 PM DIAPHRAGM BUILDER) Anatomical Region Laterality Modality Lower Extremities, Thigh, Femur Left Computed Radiography 05/21/2019 8:37 PM DIAPHRAGM BUILDER Impressions 05/23/2019 7:07 AM CDT 1. ??Highly [...] XR Chest 1 View (05/21/2019 8:24 PM DIAPHRAGM BUILDER) Anatomical Region Laterality Modality Body, Chest N/A Computed Radiogr aphy 05/21/2019 8:29 PM DIAPHRAGM BUILDER Impressions 05/23/2019 7:07 AM CDT Comparison is [...] * (ABNORMAL) Differential, auto (05/21/2019 7:43 PM DIAPHRAGM BUILDER) Neutrophil abs 7.8(H) 1.7 - 6.5 K/cumm [facility] Imm gran abs 0.0 0.0 - 0.1 K/cumm [facility] Lymphocyte abs 1.4 0.8 - 3.3 K/cumm [facility] Monocyte abs 0.6 0.2 - 0.8 K/cumm [facility] Eosinophil abs 0.0 0.0 - 0.5 K/cumm [facility] Basophil abs 0.0 0.0 - 0.1 [facility] Neutrophil pct 78.3 % [facility] Comment: Interpretive Data Percent cell count reference ranges are not reported, since discordance with absolute values may lead to misinterpretation of CBC data. Current Interpretive Data was last revised on 2017. Imm gran pct 0.5 % [facility] Comment: Interpretive Data Percent cell count reference ranges are not reported, since discordance with absolute values may lead to misinterpretation of CBC data. Current Interpretive Data was last revised on 2017. Lymphocyte pct 14.2 % [facility] Comment: Interpretive Data Percent cell count reference ranges are not reported, since discordance with absolute values may lead to misinterpretation of CBC data. Current Interpretive Data was last revised on 2017. Monocyte pct 6.6 % [facility] Comment: Interpretive Data Percent cell count reference ranges are not reported, since discordance with absolute values may lead to misinterpretation of CBC data. Current Interpretive Data was last revised on 2017. Eosinophil pct 0.1 % [facility] Comment: Interpretive Data Percent cell count reference ranges are not reported, since discordance with absolute values may lead to misinterpretation of CBC data. Current Interpretive Data was last revised on 2017. Basophil pct 0.3 % [facility] Comment: Interpretive Data Percent cell count reference ranges are not reported, since discordance with absolute values may lead to misinterpretation of CBC data. Current Interpretive Data was last revised on 2017. Blood specimen (specimen) 05/21/2019 7:43 PM DIAPHRAGM BUILDER 05/21/2019 8:08 PM DIAPHRAGM BUILDER Result [facility] Alessandro Malone MD LAB BLOOD ORDERABLES Fi nal Result Performing Organization Address [facility] [place] [address] * aPTT (05/21/2019 7:43 PM DIAPHRAGM BUILDER) aPTT 32 25 - 37 sec [facility] Comment: Interpretive data Heparin therapeutic range: 60-90 seconds Range based on correlation with therapeutic heparin activity range of 0.3-0.7 units/ml. Current interpretive data was last revised on 2019. Blood specimen (specimen) 05/21/2019 7:43 PM DIAPHRAGM BUILDER 05/21/2019 7:52 PM DIAPHRAGM BUILDER Narrative [facility] - 05/21/2019 8:23 PM DIAPHRAGM BUILDER THE COLLECTION LOCATION IS [address] Result [facility] Alessandro Malone MD LAB BLOOD ORDERABLES Fi nal Result Performing Organization Address [facility] de Phone Number [facility] [place] [address] * (ABNORMAL) Protime-INR (05/21/2019 7:43 PM DIAPHRAGM BUILDER) PT 33.0(H) 8.6 - 13.0 sec [facility] INR 3.0(H) 0.8 - 1.2 [facility] Comment: Interpretive data Oral anticoagulant therapeutic ranges: Venous thromboembolism prophylaxis or treatment: 2.0-3.0 CARDIOLOGY Standard range: 2.0-3.0 High-intensity range: 2.5-3.5 Refer to indication-specific guidelines for appropriate target ranges for prosthetic heart valve replacement. Current interpretive data was last revised on 2019. Blood specimen (specimen) 05/21/2019 7:43 PM DIAPHRAGM BUILDER 05/21/2019 7:52 PM DIAPHRAGM BUILDER Narrative [facility] - 05/21/2019 8:23 PM DIAPHRAGM BUILDER THE COLLECTION LOCATION IS [id number] Alessandro Malone MD LAB BLOOD ORDERABLES Fi nal Result Performing Organization Address [facility] [place] [address] * Type and screen (05/21/2019 7:43 PM DIAPHRAGM BUILDER) Pathologist [facility] ABO Rh O Positive [facility] Gian, indirect Negative [facility] Blood specimen (specimen) 05/21/2019 7:43 PM DIAPHRAGM BUILDER 05/21/2019 10:01 PM DIAPHRAGM BUILDER [facility]ative [facility] - 05/21/2019 10:57 PM DIAPHRAGM BUILDER Has the patient had Daratumumab (Darzalex) in the past 6 months?->Unknown THE COLLECTION LOCATION IS [facility] [id number] Alessandro Malone MD LAB BLOOD BANK TEST ORD ERABLES Final Result Performing Organization Address [facility] de Phone Number [facility] [place] [address] * (ABNORMAL) Comprehensive metabolic panel (05/21/2019 7:43 PM DIAPHRAGM BUILDER) Pathologist [facility] Sodium 137 135 - 145 mmol/L [facility] Potassium, pl 3.8 3.3 - 4.9 mmol/L [facility] Chloride 103 97 - 110 mmol/L [facility] CO2 25 22 - 32 mmol/L [facility] Anion gap 9 2 - 15 mmol/L [facility] BUN 17 8 - 25 mg/dL [facility] Creatinine 0.53(L) 0.60 - 1.10 mg/dL [facility] Glucose 180 70 - 199 mg/dL [facility] Comment: Interpretive Data Fasting glucose >/= [...] 2017. Calcium 9.2 8.5 - 10.3 mg/dL [facility] Bilirubin, total 1.0 0.1 - 1.2 mg/dL [facility] Protein, pl 7.1 6.5 - 8.5 g/dL [facility] Albumin 3.6 3.5 - 5.0 g/dL [facility] Alk phos 78 40 - 130 Units/L [facility] ALT 38 7 - 45 Units/L [facility] AST 64(H) 10 - 45 Units/L [facility] Blood specimen (specimen) 05/21/2019 7:43 PM DIAPHRAGM BUILDER 05/21/2019 8:07 PM DIAPHRAGM BUILDER Narrative [facility] - 05/21/2019 8:34 PM DIAPHRAGM BUILDER THE COLLECTION LOCATION IS [address] Alessandro Malone MD LAB BLOOD ORDERABLES Fi nal Result [facility] [place] [address] * (ABNORMAL) CBC with auto differential (05/21/2019 7:43 PM DIAPHRAGM BUILDER) WBC 9.9 3.8 - 9.9 K/cumm [facility] Hgb 12.0 11.9 - 15.5 g/dL [facility] Hct 36.7 35.6 - 45.5 % [facility] Plt 259 150 - 400 K/cumm [facility] MPV 10.3 9.1 - 12.3 fL [facility] RBC 3.82(L) 3.90 - 5.20 M/cumm [facility] MCV 96.1 81.3 - 96.4 fL [facility] MCH 31.4 27.1 - 33.3 pg [facility] MCHC 32.7 32.3 - 35.7 g/dL [facility] RDW CV 13.7 11.1 - 14.9 % [facility] RDW SD 48.4(H) 35.7 - 48.1 fL [facility] NRBC abs 0.00 0.00 - 0.01 K/cumm [facility] Blood specimen (specimen) 05/21/2019 7:43 PM DIAPHRAGM BUILDER 05/21/2019 8:08 PM DIAPHRAGM BUILDER Narrative [facility] - 05/21/2019 8:16 PM DIAPHRAGM BUILDER THE COLLECTION LOCATION IS [address] us Alessandro Malone MD LAB BLOOD ORDERABLES Fi nal Result [facility] [place] [address] * (ABNORMAL) ECG 12-LEAD (05/21/2019 7:40 PM DIAPHRAGM BUILDER) Narrative [facility] - 05/21/2019 7:40 PM DIAPHRAGM BUILDER Berny Carrera MD ? 05/21/2019 ??7:40 PM [...] ORDERABLES Final R esult Performing Organization Address [facility] de Phone Number [facility] * XR Outside Reference (05/21/2019 7:33 PM DIAPHRAGM BUILDER) Impressions [facility] - 05/21/2019 7:33 PM DIAPHRAGM BUILDER These images are for Reference purposes only and have not been reviewed by [facility] Radiology. ??There will be no report generated by a [facility] Radiologist. Narrative [facility] - 05/21/2019 7:33 PM DIAPHRAGM BUILDER EXAMINATION: ??Images For Reference Purposes Only Alessandro Malone MD IMG XR PROCEDURES Final Result Performing Organization Address [facility] de Phone Number [email or web address] * POCT glucose (05/21/2019 7:27 PM DIAPHRAGM BUILDER) Glucose, POC 171 70 - 199 mg/dL [facility] Blood specimen (specimen) 05/21/2019 7:27 PM DIAPHRAGM BUILDER 05/21/2019 7:27 PM DIAPHRAGM BUILDER Notinfile Unknown LAB POCT ORDERABLES - DEVICE F inal Result Performing Organization Address [facility] de Phone Number [facility] Department [place] [address] documented in this encounter Visit Diagnoses Diagnosis Open fracture of left distal femur (CMS/HCC) ([facility])- Primary Closed fracture of distal end of left femur, unspecified fracture morphology, initial encounter ([facility]) Other type I or II open fracture of distal end of left femur, initial encounter ([facility]) Closed displaced comminuted fracture of shaft [...] oral, 2 times daily, First dose on [facility] 05/21/19 at 2222 Given 05/27/2019 8:14 AM CDT 25 mg Given 05/26/2019 9:38 PM CDT 25 mg Given 05/26/2019 9:28 AM CDT 25 mg dextrose (D10W) 10% bolus 250 mL 250 mL, intravenous, at 1,000 mL/hr, Administer over 15 Minutes, Every 15 min PRN, blood glucose less than 70 mg/dL and UNABLE to swallow/take PO glucose/juice., Starting on [place] 05/22/19 at 0011, After treatment for hypoglycemia, [...] Call MD for each episode of hypoglycemia. ORDER FILLER STATES GLUTOSE-15 CONTAINS GLUCOSE 40% W/W (50% [...] Lamar, ARMANI)0612 (Given - Provider: Mary Lamar, ARMANI)1012 (MAR Hold - Provider: Automatic Transfer [...] available)1723 (MAR Unhold - Provider: Ryann Mcqueen, ARMANI)2249 (Not [...] Surgical 2105 (New Bag - Provider: Moriah Hall RN) [...] (MAY Unhold - Provider: Ryann Mcqueen, ARMANI) 0929 [...] Oleary, ARMANI)1820 (Given - Provider: Gen Oleary, RN)2210 (Given - Provider: Julissa Eaton, ARMANI) 0245 [...] each episode of hypoglycemia., Indications: hypoglycemic disorder 1011 ([facility] Hold - Provider: Automatic Transfer Provider - Reason: Patient not available)1722 ([facility] Unhold - Provider: Ryann Mcqueen RN) [...] Call MD for each episode of hypoglycemia. ORDER FILLER STATES GLUTOSE-15 CONTAINS GLUCOSE 40% W/W (50% W/V), Indications: hypoglycemic disorder 101 ([facility] Hold - Provider: Automatic Transfer Provider - Reason: Patient not available)1722 ([facility] Unhold - Provider: Ryann Mcqueen RN) [...] Transfer Provider - Reason: Patient not available)172 (MAY Unhold - Provider: Ryann Mcqueen, ARMANI) [...] 0001 (Given - Provider: Mary Lamar, ARMANI)1012 ([facility] Hold - Provider: Automatic Transfer Provider [...] Call MD for each episode of hypoglycemia. ORDER FILLER STATES GLUTOSE-15 CONTAINS GLUCOSE 40% W/W (50% [...] 20 famotidine (PEPCID) tablet 20 mg 1 03/11/20 20 gabapentin (NEURONTIN) capsule 300 mg 1 [...] 05/21/2019 documented in this encounter Care Teams Junior Financial Analyst Relationship Specialty Start Date End Date Wilber Cleaning Jr., MD [address] [place] [address] PCP - General 07/03/16 07/15/20 documented as of this encounter
--- OUTSIDE RECORDS SUMMARY | 2024-03-25 11:06 | XMS_ITS | Encounter Summary ---
Author Organization [facility] Healthcare Address [address] [place] [address] Care Team Providers Care Surveyor Geodetic Name Role Phone Hermila Calhoun MD, Wilber Martinez Primary Care Provider Encounter Details Date Type Department Care Team (Latest Contact Info) Description 05/21/2019 7:35 PM ROTOR ASSEMBLER - 05/21/2019 11:59 PM ROTOR ASSEMBLER Hospital Encounter [facility] [address] [place] [id number] Discharge Disposition: Discharge to home or self care Social History Tobacco Use Types Packs/Day Years Used Date Smoking Tobacco: Never Smokeless Tobacco: Never Comments Unknown Sex and Gender Information Value Date Recorded Sex Assigned at Not on file Legal Sex Female 4:20 AM ROTOR ASSEMBLER Gender Identity Not on file Sexual [...] MR OUTSIDE CONSULT ED 05/21/2019 8:41 PM ROTOR ASSEMBLER documented in this encounter Results * Neuro CT MR Outside Consult (05/21/2019 8:41 PM ROTOR ASSEMBLER) Anatomical Region Laterality Modality N/A Computed Tomogra phy 05/21/2019 8:49 PM ROTOR ASSEMBLER Impressions 05/22/2019 9:46 AM CDT 1. ??No [...] images may or may not represent the [place] source data set and thus may contain [...] IMAGING STUDY STUDY INITIALLY PERFORMED: 05/21/2019 at [facility]. TYPE OF STUDY: Multiple CT images [...] IMAGING STUDY STUDY INITIALLY PERFORMED: 05/21/2019 at [facility]. TYPE OF STUDY: Multiple CT images [...] images may or may not represent the [place] source data set and thus may contain [...] on filedocumented in this encounter Care Teams Surveyor Geodetic Relationship Specialty Start Date End Date Wilber Cleaning Jr., MD [address] [place] [address] PCP - General 07/03/16 07/15/20 documented as of this encounter
--- OUTSIDE RECORDS SUMMARY | 2024-03-25 11:06 | XMS_ITS | Encounter Summary ---
Author Organization [facility] Healthcare Address [address] [place] [address] Care Team Providers Care Television Inspector Name Role Phone Hermila Calhoun MD, Wilber Martinez Primary Care Provider Encounter Details Date Type Department Care Team (Late st Contact Info) Description 05/25/2019 11:20 AM CDT Anesthesia Event [facility] Operating Room 1 [place] [address] Paul Kelly MD [address] [place] [address] Darryl Huang CRNA [address] [place] [address] Anesthesia Record Procedure Summary Procedure Name Responsible [...] Direct laryngoscopy; Type: ETT - single (By Bolt student); Single Lumen Tube Size: 7 mm; [...] on file Legal Sex Female 4:20 AM PSYCHIATRIST Gender Identity Not on file Sexual Orientation Not on file documented as of this encounter OR Notes * Anesthesia Postprocedure Evaluation - Carlitos Back MD PhD - 05/25/2019 5:30 PM CDT Patient: Prema Pearce Procedure Summary Date: 05/25/19 Room / Location: [facility] OR POD 2 ROOM 206 / [facility] OR POD 2 Anesthesia Start: 1120 Anesthesia Stop: 1418 Procedure: FEMUR REPLACEMENT - DISTAL - LEFT (Left Leg Lower) Diagnosis: Closed displaced comminuted fracture of shaft of left femur, initial encounter ([facility]) (Closed displaced comminuted fracture of shaft of left femur, initial encounter ([facility]) [S72.352A]) Surgeon: Kaveh Charles MD Responsible Provider: [...] Supervising provider: Paul Kelly MD Placed by: HEALTHCARE BUSINESS ANALYST: Jina Villalobos CRNA Emergent airway documentation: Consent [...] Preoperative Evaluation Record Evaluation type/location: IPAP at [facility] Planned procedure site: [facility] (Pods 2/3/5/POWDER CUTTING OPERATOR) Date: 05/25/19 Anesthesia Evaluation Prema Pearce is a 79 y.o. female Procedure(s): FEMUR REPLACEMENT - DISTAL - LEFT Pre-Op Diagnosis Codes: * Other type I or II open fracture of distal end of left femur, initial encounter ([facility]) [S72.492B] HISTORY HPI Prema Pearce is a [...] < 7 days). Pertinent negatives: CAD ; IN ; CABG ; arrhythmia; pacemaker/ICD; DVT/PE; negative [...] Medication protocol when under care of a HEALTHCARE BUSINESS ANALYST Planned anesthesia: General Team communication plan: oral ET tube Induction: Induction: intravenous. Postoperative Plan: Postoperative administration opioids intended. No postoperative mechanical ventilation intended. Patient's planned disposition post procedure is Floor. Informed Consent: Discussed plan with HEALTHCARE BUSINESS ANALYST. Anesthesia plan and risks discussed with patient. [...] Procedure Name Priority Date/Time Associated Diagnosis Comments WI AN PROCEDURE PLACEHOLDER Routine 05/25/2019 11:56 AM CDT WI AN ELECTIVE ENDOTRACHEAL AIRWAY Routine 05/25/2019 11:56 AM CDT documented in this encounter Results * WI AN ELECTIVE ENDOTRACHEAL AIRWAY, WI AN PROCEDURE PLACEHOLDER (05/25/2019 11:56 AM CDT) Jina Triana CRNA - 05/25/2019 11:56 AM CDT Jina Villalobos CRNA ? 05/25/2019 11:58 AM Airway Patient location: OR Urgency: elective Indications for airway management: anesthesia Difficult airway: no Staff: Supervising provider: Paul Kelly MD Placed by: HEALTHCARE BUSINESS ANALYST: Jina Villalobos CRNA Emergent airway documentation: Consent [...] CDT documented in this encounter Care Teams Television Inspector Relationship Specialty Start Date End Date Wilber Cleaning Jr., MD [address] [place] [address] PCP - General 07/03/16 07/15/20 documented as of this encounter
--- OUTSIDE RECORDS SUMMARY | 2024-03-25 11:06 | XMS_ITS | Encounter Summary ---
Author Organization [facility] Address [address] [place] [address] Phone Care Team Providers Care Bible Reader Name Role Phone Hermila Calhoun MD, Wilber Duckworth. Primary Care Provider Encounter Details Date Type Department Care Team (Late st Contact Info) Description 05/09/2019 Telephone [facility] Card[facility] Medical Office Building [address] [place] [address] Cathleen Walker MD [address] [facility] 8 [facility] [place] [address] Social History Tobacco Use Types Packs/Day Years Used Date Smoking Tobacco: Never Smokeless Tobacco: Never Comments Unknown Sex and Gender Information Value Date Recorded Sex Assigned at Not on file Legal Sex Female 4:20 AM CONE WORKER Gender Identity Not on file Sexual Orientation Not on file documented as of this encounter Miscellaneous Notes * Telephone Encounter - Sharon Harrington, [facility] - 05/09/2019 2:15 PM CONE WORKER 05/09/19: Spoke with patient she stated that she just got back in town and is not feeling well. She will try to go tomorrow. WORKER documented in this encounter Plan of Treatment Not on file documented as of this encounter Visit Diagnoses Not on filedocumented in this encounter Care Teams Bible Reader Relationship Specialty Start Date End Date Wilber Cleaning Jr., MD [address] [place] [address] PCP - General 07/03/16 07/15/20 documented as of this encounter
--- OUTSIDE RECORDS SUMMARY | 2024-03-25 11:06 | XMS_ITS | Encounter Summary ---
Author Organization [facility] Care Team Providers Care Head Knitting Machine Fixer Name Role Phone Hermila Calhoun MD, Oscar A. Primary Care Provider Encounter Details Date Type Department Care Team (Latest Contact Info) Description 05/21/2019 Travel Social History Tobacco Use Types Packs/Day Years Used Date Smoking Tobacco: Never Smokeless Tobacco: Never Comments Unknown Sex and Gender Information Value Date Recorded Sex Assigned at Not on file Legal Sex Female 4:20 AM ATTENDANT [facility] Gender Identity Not on file Sexual Orientation Not on file documented as of this encounter Plan of Treatment Not on file documented as of this encounter Visit Diagnoses Not on filedocumented in this encounter Care Teams Head Knitting Machine Fixer Relationship Specialty Start Date End Date Wilber Cleaning Jr., MD [address] [place] [address] PCP - General 07/03/16 07/15/20 documented as of this encounter
--- OUTSIDE RECORDS SUMMARY | 2024-03-25 11:06 | XMS_ITS | Encounter Summary ---
Author Organization [facility] Address [address] [place] [address] Phone Care Team Providers Care Flow Floor Attendant Name Role Phone Hermila Calhoun [...] on file Legal Sex Female 4:20 AM MEDICATION NURSE Gender Identity Not on file Sexual [...] on filedocumented in this encounter Care Teams Flow Floor Attendant Relationship Specialty Start Date End Date Wilber Cleaning Jr., MD [address] [place] [address] PCP - General 07/03/16 07/15/20 documented as of this encounter
--- OUTSIDE RECORDS SUMMARY | 2024-03-25 11:06 | XMS_ITS | Encounter Summary ---
Author Organization [facility] Healthcare Address [address] [place] [address] Care Team Providers Care Customer Operations Representative Name Role Phone Hermila Calhoun MD, Wilber Martinez Primary Care Provider Encounter Details Date Type Department Care Team (Late st Contact Info) Description 05/22/2019 7:29 AM CDT Anesthesia Event [facility] Operating Room 1 [place] [address] Daryn Jaramillo MD [address] [facility] [id number] [place] [address] Anesthesia Record Procedure Summary Procedure Name Responsible [...] on file Legal Sex Female 4:20 AM NUCLEAR PHYSICIST Gender Identity Not on file Sexual Orientation Not on file documented as of this encounter OR Notes * Anesthesia Postprocedure Evaluation - Daryn Jaramillo MD - 05/22/2019 10:09 AM CDT Patient: Prema Pearce Procedure Summary Date: 05/22/19 Room / Location: [facility] OR POD 2 ROOM 204 / [facility] OR POD 2 Anesthesia Start: 728 Anesthesia Stop: 910 Procedure: INCISION AND DRAINAGE - FEMUR (Left Thigh) Diagnosis: Other type I or II open fracture of distal end of left femur, initial encounter ([facility]) (Other type I or II open fracture of distal end of left femur, initial encounter ([facility]) [S72.492B]) Surgeon: Cuba Castro MD Responsible Provider: [...] Catheter Patient location: OR Staff: Placed by: FRANCHISE FIELD CONSULTANT: Mehlu Dias CRNA Preprocedure prep: Prep solution: chlorhexadine [...] Supervising provider: Daryn Jaramillo MD Placed by: FRANCHISE FIELD CONSULTANT: Mehul Dias CRNA Other staff: Daya Baldwin [...] distal end of left femur, initial encounter ([facility]) [S72.492B] Patient Active Problem List Diagnosis ??? Carotid bruit ??? Obesity with body mass index 30 or greater ??? Snoring ??? Atrial fibrillation ([facility]) [I48.91] ??? Open fracture of left distal femur ([facility]) Past Medical History: Diagnosis Date ??? Atrial fibrillation ([facility]) ??? Dyslipidemia ??? Hypertension ??? Hypothyroidism ??? [...] Medication protocol when under care of a FRANCHISE FIELD CONSULTANT Planned anesthesia: General Team communication plan: oral ET tube Induction: Induction: intravenous. Postoperative Plan: Patient's planned disposition post procedure is Floor. Informed Consent: Discussed plan with FRANCHISE FIELD CONSULTANT. Anesthesia plan and risks discussed with patient. [...] Procedure Name Priority Date/Time Associated Diagnosis Comments WY AN PROCEDURE PLACEHOLDER Routine 05/22/2019 7:56 AM CDT WY AN PROCEDURE PLACEHOLDER Routine 05/22/2019 7:54 AM CDT WY AN ELECTIVE ENDOTRACHEAL AIRWAY Routine 05/22/2019 7:54 AM CDT documented in this encounter Results * [place] AN PROCEDURE PLACEHOLDER (05/22/2019 7:56 AM CDT) Narrative Daya Baldwin RN - 05/22/2019 7:56 AM CDT Daya Baldwin RN ? 05/22/2019 ??7:56 AM Peripheral IV Catheter Patient location: OR Staff: Placed by: FRANCHISE FIELD CONSULTANT: Mehul Dias CRNA Preprocedure prep: Prep solution: chlorhexadine PPE: gloves PIV line: Laterality: left Site: hand Catheter size: 18 g Technique: direct visualization and palpatation Procedure details: good blood return and occlusive dressing applied Number of attempts: 1 Daryn Jaramillo MD ANESTHESIA ORDERABLES Final Result * WY AN ELECTIVE ENDOTRACHEAL AIRWAY, [place]Y AN PROCEDURE PLACEHOLDER (05/22/2019 7:54 AM CDT) Daya Veras RN - 05/22/2019 7:54 AM CDT Daya Baldwin RN ? 05/22/2019 ??7:55 AM Airway Patient location: OR Urgency: elective Date/time: 05/22/2019 7:45 AM Indications for airway management: anesthesia Difficult airway: no Staff: Supervising provider: Daryn Jaramillo MD Placed by: FRANCHISE FIELD CONSULTANT: Mehul Dias CRNA Other staff: Daya Baldwin [...] mg documented in this encounter Care Teams Customer Operations Representative Relationship Specialty Start Date End Date Wilber Cleaning Jr., MD [address] [place] [address] PCP - General 07/03/16 07/15/20 documented as of this encounter
--- OUTSIDE RECORDS SUMMARY | 2024-03-25 11:06 | XMS_ITS | Encounter Summary ---
Author Organization [facility] Address [address] [place] [address] Phone Care Team Providers Care Cleaning Staff Supervisor Name Role Phone Hermila Calhoun MD, Wilber Duckworth. Primary Care Provider Encounter Details Date Type Department Care Team (Late st Contact Info) Description 05/23/[address] [facility] Card[facility] Medical Office Building [address] [place] [address] Cathleen Walker MD [address] [facility] [address] [place] [address] Social History Tobacco Use Types Packs/Day Years Used Date Smoking Tobacco: Never Smokeless Tobacco: Never Alcohol Use Standard Drinks/Week Comments Yes 0 (1 standard drink = 0.6 oz pur e alcohol) 1/mo Comments No Sex and Gender Information Value Date Recorded Sex Assigned at Not on file Legal Sex Female 4:20 AM BOILER OUT Gender Identity Not on file Sexual Orientation [...] documented as of this encounter Care Teams Cleaning Staff Supervisor Relationship Specialty Start Date End Date Wilber Cleaning Jr., MD [address] [place] [address] PCP - General 07/03/16 07/15/20 documented as of this encounter
--- OUTSIDE RECORDS SUMMARY | 2024-03-25 11:06 | XMS_ITS | Encounter Summary ---
Author Organization [facility] Address [address] [facility] [address] [place] [address] Care Team Providers Care Instrument Repairer Name Role Phone Hermila Calhoun MD, Wilber Martinez Primary Care Provider Ryann Galdamez Primary Care Provider [phone] Encounter Details Date Type Department Care Team (Late st Contact Info) Description 05/21/2019 Orders Only [facility] Information Management [address] [place] [address] Scanning, Provider Social History Tobacco Use Types [...] on file Legal Sex Female 4:20 AM TACK PULLER Gender Identity Not on file Sexual Orientation [...] pt afebrile, without URI signs/symptoms. Aislinn Goldsmith, PROPERTY CLAIM REP 06/09/2019 06/09/2019 06/09/2019 4:20 PM C DT documented as of this encounter Care Teams Instrument Repairer Relationship Specialty Start Date End Date Wilber Cleaning Jr., MD [address] [place] [address] PCP - General 07/03/16 07/15/20 Ryann Galdamez PA [address] [place] [address] PCP - General Motor And Chassis Inspector 07/16/20 04/01/21 documented as of this encounter
--- OUTSIDE RECORDS SUMMARY | 2024-03-25 11:06 | XMS_ITS | Encounter Summary ---
Author Organization [facility] Address [address] [place] [address] Phone Care Team Providers Care Chorus Dancer Name Role Phone Hermila Calhoun MD, Wilber [...] on file Legal Sex Female 4:20 AM ELECTRONICS TECHNICIAN APPRENTICE Gender Identity Not on file Sexual Orientation Not on file documented as of this encounter Progress Notes * Paulina Bright RN - 04/19/2019 11:59 PM CST Reviewed See anti coag episode TRONICS TECHNICIAN APPRENTICE documented in this encounter Plan of Treatment Not on file documented as of this encounter Procedures Procedure Name Priority Date/Time Associated Diagnosis Comments SCAN - LABS 04/19/2019 documented in this encounter Results * SCAN - LABS (04/19/2019) us Provider Scanning Final Result documented in this encounter Visit Diagnoses Not on filedocumented in this encounter Care Teams Chorus Dancer Relationship Specialty Start Date End Date Wilber Cleaning Jr., MD [address] [place] [address] PCP - General 07/03/16 07/15/20 documented as of this encounter
--- OUTSIDE RECORDS SUMMARY | 2024-03-25 11:06 | XMS_ITS | Encounter Summary ---
Author Organization [facility] Address [address] [place] [address] Phone Care Team Providers Care Hub Bander Name Role Phone Hermila Calhoun MD, Wilber Martinez Primary Care Provider Encounter Details Date Type Department Care Team (Latest Contact Info) Description 05/11/2019 Anticoagulation Telephone Call [facility] Cardiology [address] [facility] Medicine 8th [place] [address] [place] [address] Cathleen Walker MD [address] [facility] [address] [place], [place] [id number] Atrial fibrillation, unspecified type (CMS/HCC) Social History Tobacco Use Types Packs/Day Years Used Date Smoking Tobacco: Never Smokeless Tobacco: Never Comments Unknown Sex and Gender Information Value Date Recorded Sex Assigned at Not on file Legal Sex Female 4:20 AM HYDROELECTRIC PLANT MAINTAINER Gender Identity Not on file Sexual Orientation Not on file documented as of this encounter Plan of Treatment Not on file documented as of this encounter Visit Diagnoses Diagnosis Atrial fibrillation, unspecified type (HCC) documented in this encounter Care Teams Hub Bander Relationship Specialty Start Date End Date Wilber Cleaning Jr., MD [address] [place] [address] PCP - General 07/03/16 07/15/20 documented as of this encounter
--- OUTSIDE RECORDS SUMMARY | 2024-03-25 11:07 | XMS_ITS | Encounter Summary ---
Author Organization [facility] Address [address] [place] [address] Phone Care Team Providers Care Boat Assembler Name Role Phone Hermila Calhoun MD, Wilber Martinez Primary Care Provider Encounter Details Date Type Department Care Team (Latest Contact Info) Description 08/11/2018 Anticoagulation Telephone Call [facility] Cardiology [address] [facility] Medical Office Building [address] [place] [address] Catarina Huerta MD [address] [facility] [address] [place] [address] Atrial fibrillation, unspecified type (CMS/HCC) Social History Tobacco Use Types Packs/Day Years Used Date Smoking Tobacco: Never Smokeless Tobacco: Never Comments Unknown Sex and Gender Information Value Date Recorded Sex Assigned at Not on file 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
--- OUTSIDE RECORDS SUMMARY | 2024-03-25 11:07 | XMS_ITS | Encounter Summary ---
Author Organization [facility] Address [address] [place] [address] Phone Care Team Providers Care Open Hearth Stockyard Supervisor Name Role Phone Hermila Calhoun MD, Wilber Martinez Primary Care Provider Encounter Details Date Type Department Care Team (Latest Contact Info) Description 02/18/2019 Anticoagulation [facility] [address] [facility] Advanced Medicine 8th [place] [address] [place] [address] Cathleen Walker MD [address] [facility] [address] [place], [place] [id number] Atrial fibrillation, unspecified type (CMS/HCC) Social History Tobacco Use Types Packs/Day Years Used Date Smoking Tobacco: Never Smokeless Tobacco: Never Comments Unknown Sex and Gender Information Value Date Recorded Sex Assigned at Not on file Legal Sex Female 4:20 AM CONTINUOUS PROCESS TANNER ROTARY DRUM Gender Identity Not on file Sexual Orientation Not on file documented as of this encounter Miscellaneous Notes * Addendum Note - Juan Manuel Fragoso RMA - 02/18/2019 10:17 AM CSTAddended by: JUAN MANUEL FRAGOSO on: 02/18/2019 10:17 AM Modules accepted: Orders INUOUS PROCESS TANNER ROTARY DRUM documented in this encounter Plan of Treatment Scheduled Orders Name Type Priority Associated Diagnoses Orde r Schedule Protime-INR Lab Routine Atrial fibrillation, unspecified type (CMS/HCC) Expected: 03/07/2019 (Approximate), Expires: 02/19/2020 documented as of this encounter Visit Diagnoses Diagnosis Atrial fibrillation, unspecified type (HCC) documented in this encounter Care Teams Open Hearth Stockyard Supervisor Relationship Specialty Start Date End Date Wilber Cleaning Jr., MD [address] [place] [address] PCP - General 07/03/16 07/15/20 documented as of this encounter
--- OUTSIDE RECORDS SUMMARY | 2024-03-25 11:07 | XMS_ITS | Encounter Summary ---
Author Organization [facility] Address [address] [place] [address] Phone Care Team Providers Care Tow Picker Name Role Phone Hermila Calhoun MD, Wilber Martinez Primary Care Provider Encounter Details Date Type Department Care Team (Latest Contact Info) Description 06/18/2018 Anticoagulation Telephone Call [facility] Cardiology [address] [facility] Medical Office Building [address] [place] [address] Catarina Huerta MD [address] [facility] [address] [place] [address] Atrial fibrillation, unspecified type (CMS/HCC) Social History Tobacco Use Types Packs/Day Years Used Date Smoking Tobacco: Never Smokeless Tobacco: Never Comments Unknown Sex and Gender Information Value Date Recorded Sex Assigned at Not on file Legal Sex Female 4:20 AM PROGRAMMING INTERNSHIP Gender Identity Not on file Sexual [...] (HCC) documented in this encounter Care Teams Tow Picker Relationship Specialty Start Date End Date Wilber Cleaning Jr., MD [facility] [place] [address] PCP - General 07/03/16 07/15/20 documented as of this encounter
--- OUTSIDE RECORDS SUMMARY | 2024-03-25 11:07 | XMS_ITS | Encounter Summary ---
Author Organization [facility] Address [address] [place] [address] Phone Care Team Providers Care Airport Location Manager Name Role Phone Hermila Calhoun MD, Wilber Martinez Primary Care Provider Encounter Details Date Type Department Care Team (Late st Contact Info) Description 11/11/2017 Orders Only [facility] Cardiology [address] 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
--- OUTSIDE RECORDS SUMMARY | 2024-03-25 11:07 | XMS_ITS | Encounter Summary ---
Author Organization [facility] Address [address] [place] [address] Phone Care Team Providers Care Weather Observer Name Role Phone Hermila Calhoun MD, Wilber Martinez Primary Care Provider Encounter Details Date Type Department Care Team (Latest Contact Info) Description 03/10/2019 Anticoagulation Telephone Call [facility] Cardiology [address] [facility] Advanced Medicine 8th [place] [address] [place] [address] Cathleen Walker MD [address] [facility] [address] [place] [address] Atrial fibrillation, unspecified type (CMS/HCC) Social History Tobacco Use Types Packs/Day Years Used Date Smoking Tobacco: Never Smokeless Tobacco: Never Comments Unknown Sex and Gender Information Value Date Recorded Sex Assigned at Not on file Legal Sex Female 4:20 AM WEBFOCUS DEVELOPER Gender Identity Not on file Sexual [...] (HCC) documented in this encounter Care Teams Weather Observer Relationship Specialty Start Date End Date Wilber Cleaning Jr., MD [address] [place] [address] PCP - General 07/03/16 07/15/20 documented as of this encounter
--- OUTSIDE RECORDS SUMMARY | 2024-03-25 11:07 | XMS_ITS | Encounter Summary ---
Author Organization [facility] of [facility] Address [address] [place] [address] Phone Care Team Providers Care Buyer Internship Name Role Phone Hermila Calhoun MD, Wilber Martinez Primary Care Provider Encounter Details Date Type Department Care Team (Latest Contact Info) Description 04/23/2018 Anticoagulation Telephone Call [facility] Cardiology [address] [facility] Medical Office Building [address] [place] [address] Catarina Huerta MD [address] [facility] [address] [place] [address] Atrial fibrillation, unspecified type (CMS/HCC) Social History Tobacco Use Types Packs/Day Years Used Date Smoking Tobacco: Never Smokeless Tobacco: Never Comments Unknown Sex and Gender Information Value Date Recorded Sex Assigned at Not on file Legal Sex Female 4:20 AM SECURITY MONITOR Gender Identity Not on file Sexual Orientation Not on file documented as of this encounter Miscellaneous Notes * Telephone Encounter - Gail Redman MA - 04/23/2018 2:21 PM SECURITY MONITOR I spoke to the patient who verbalizes understanding of result and orders given. RITY MONITOR * Telephone Encounter - Margarita Méndez RN - 04/23/2018 9:30 AM SECURITY MONITOR No change, recheck 2 weeks. jf RITY MONITOR documented in this encounter Plan of Treatment [...] (HCC) documented in this encounter Care Teams Buyer Internship Relationship Specialty Start Date End Date Wilber Cleaning Jr., MD [address] [place] [address] PCP - General 07/03/16 07/15/20 documented as of this encounter
--- OUTSIDE RECORDS SUMMARY | 2024-03-25 11:07 | XMS_ITS | Encounter Summary ---
Author Organization [facility] Address [address] [place] [address] Phone Care Team Providers Care Electrical Engineering Designer Name Role Phone Hermila Calhoun MD, Wilber Martinez Primary Care Provider Encounter Details Date Type Department Care Team (Latest Contact Info) Description 07/08/2018 Anticoagulation Telephone Call [facility] Cardiology [address] [facility] Medical Office Building [address] [place] [address] Catarina Huerta MD [address] [facility] [address] [place] [address] Atrial fibrillation, unspecified type (CMS/HCC) Social History Tobacco Use Types Packs/Day Years Used Date Smoking Tobacco: Never Smokeless Tobacco: Never Comments Unknown Sex and Gender Information Value Date Recorded Sex Assigned at Not on file Legal Sex Female 4:20 AM YARN WEIGHER Gender Identity Not on file Sexual Orientation [...] (HCC) documented in this encounter Care Teams Electrical Engineering Designer Relationship Specialty Start Date End Date Wilber Cleaning Jr., MD [address] [place] [address] PCP - General 07/03/16 07/15/20 documented as of this encounter
--- OUTSIDE RECORDS SUMMARY | 2024-03-25 11:07 | XMS_ITS | Encounter Summary ---
Author Organization [facility] Address [address] [place] [address] Phone Care Team Providers Care Peanut Picker Name Role Phone Hermila Calhoun MD, Wilber Martinez Primary Care Provider Encounter Details Date Type Department Care Team (Latest Contact Info) Description 05/07/2018 Anticoagulation Telephone Call [facility] Cardiology [address] [facility] Medical Office Building [address] [place] [address] Catarina Huerta MD [address] [facility] [address] [place] [address] Atrial fibrillation, unspecified type (CMS/HCC) Social History Tobacco Use Types Packs/Day Years Used Date Smoking Tobacco: Never Smokeless Tobacco: Never Comments Unknown Sex and Gender Information Value Date Recorded Sex Assigned at Not on file Legal Sex Female 4:20 AM HUMANITIES INSTRUCTOR Gender Identity Not on file Sexual Orientation Not on file documented as of this encounter Miscellaneous Notes * Telephone Encounter - Gail Redman MA - 05/07/2018 11:26 AM HUMANITIES INSTRUCTOR I spoke to Prema Pearce who verbalizes understanding of result and orders given. NITIES INSTRUCTOR * Telephone Encounter - Margarita Méndez RN - 05/07/2018 8:46 AM HUMANITIES INSTRUCTOR No change, recheck 4 weeks. Please call pt. jf NITIES INSTRUCTOR NITIES INSTRUCTOR documented in this encounter Plan of [...] (HCC) documented in this encounter Care Teams Peanut Picker Relationship Specialty Start Date End Date Wilber Cleaning Jr., MD [address] [place] [address] PCP - General 07/03/16 07/15/20 documented as of this encounter
--- OUTSIDE RECORDS SUMMARY | 2024-03-25 11:07 | XMS_ITS | Encounter Summary ---
Author Organization [facility] Address [address] [place] [address] Phone Care Team Providers Care Clinical Nurse Manager Name Role Phone Hermila Calhoun MD, Wilber Martinez Primary Care Provider Encounter Details Date Type Department Care Team (Latest Contact Info) Description 03/18/2018 Anticoagulation Telephone Call [facility] Cardiology [address] [facility] Medical Office Building [address] [place] [address] Catarina Huerta MD [address] [facility] [address] [place] [address] Atrial fibrillation, unspecified type (CMS/HCC) Social History Tobacco Use Types Packs/Day Years Used Date Smoking Tobacco: Never Smokeless Tobacco: Never Comments Unknown Sex and Gender Information Value Date Recorded Sex Assigned at Not on file Legal Sex Female 4:20 AM CHIEF OPERATOR SYNTHESIS Gender Identity Not on file Sexual Orientation Not on file documented as of this encounter Miscellaneous Notes * Addendum Note - Juan Manuel Fragoso MA - 03/18/2018 11:39 AM CSTAddended by: JUAN MANUEL FRAGOSO on: 03/18/2018 11:39 AM Modules accepted: Orders F OPERATOR SYNTHESIS * Telephone Encounter - Juan Manuel Fragoso MA - 03/18/2018 11:34 AM CHIEF OPERATOR SYNTHESIS I spoke to the patient who verbalizes understanding of result and orders given. She will be OOT from March to May. She has asked me to mail her a SO for [facility], which I have done. F OPERATOR SYNTHESIS F OPERATOR SYNTHESIS * Telephone Encounter - Apolonia Sinha RN - 03/18/2018 8:12 AM CST No change recheck 1 month F OPERATOR SYNTHESIS documented in this encounter Plan of Treatment [...] type (CMS/HCC) PROTIME-INR Routine 03/30/2018 10:01 AM CHIEF OPERATOR SYNTHESIS Atrial fibrillation, unspecified type (CMS/HCC) PROTIME-INR Routine 03/17/2018 documented in this encounter Results * (ABNORMAL) Protime-INR (08/18/2018 8:06 AM CDT) INR 2.6(H) [facility] - Comment: Reference Range ? 0.9-1.1 Moderate-intensity Warfarin Therapy 2.0-3.0 Higher-intensity Warfarin Therapy ?? 3.0-4.0 PT 26.1(H) 9.0 - 11.5 sec [facility] - Comment: For more information on this test, go to: http://education.Voice2Insight/faq/QJB458 Blood specimen (specimen) 08/18/2018 8:06 AM CDT 08/18/2018 8:07 AM CDT Narrative Resulting Agency Comment Performing Organization Information: ?Site ID: ?Name[facility] ?Address: [facility] [place] [address] ?Director: Christian Wheeler us Catarina Huerta MD LAB BLOOD ORDERABLES Final R esult [facility] - [place] * (ABNORMAL) Protime-INR (08/11/2018 11:03 AM CDT) INR 2.2(H) [facility] - Comment: Reference Range ? 0.9-1.1 Moderate-intensity Warfarin Therapy 2.0-3.0 Higher-intensity Warfarin Therapy ?? 3.0-4.0 PT 22.7(H) 9.0 - 11.5 sec [facility] [place] Comment: For more information on this test, go to: http://[employer].[email or web address]/faq/XTO692 Blood specimen (specimen) 08/11/2018 11:03 AM CDT 08/11/2018 11:03 AM CDT Narrative Resulting Agency Comment Performing Organization Information: ?Site ID: [place] ?Name[facility] ?Address: [facility] [place] [address] ?Director: Christian Wheeler Catarina Huerta MD LAB BLOOD ORDERABLES Final R esult Performing Organization Address [facility] Co de Phone Number [facility] - [place], [place] * (ABNORMAL) Protime-INR (08/03/2018 10:33 AM CDT) INR 1.9(H) [facility] [place] Comment: Reference Range ? 0.9-1.1 Moderate-intensity Warfarin Therapy 2.0-3.0 Higher-intensity Warfarin Therapy ?? 3.0-4.0 PT 19.4(H) 9.0 - 11.5 sec [facility] [place] Comment: For more information on this test, go to: http://[employer].[email or web address]/faq/XNA137 Blood specimen (specimen) 08/03/2018 10:33 AM CDT 08/03/2018 10:33 AM CDT Narrative Resulting Agency Comment Performing Organization Information: ?Site ID: [place] ?Name: [facility] ?Address: [facility] [address] [place] [address] ?Director: Christian Wheeler Catarina Huerta MD LAB BLOOD ORDERABLES Final R esult Performing Organization Address City/[facility] Co de Phone Number [facility] [place], [place] * (ABNORMAL) Protime-INR (07/08/2018 8:15 AM CDT) INR 2.4(H) [facility] - Comment: Reference Range ? 0.9-1.1 Moderate-intensity Warfarin Therapy 2.0-3.0 Higher-intensity Warfarin Therapy ?? 3.0-4.0 PT 24.5(H) 9.0 - 11.5 sec [facility] - Comment: For more information on this test, go to: http://[employer].[email or web address]/faq/HJH879 Blood specimen (specimen) 07/08/2018 8:15 AM CDT 07/08/2018 8:16 AM CDT Narrative Resulting Agency Comment Performing Organization Information: ?Site ID: ?Name: [facility] ?Address: [facility] [place] [address] ?Director: Christian Wheeler us Catarina Huerta MD LAB BLOOD ORDERABLES Final R esult [facility] - [place], [place] * (ABNORMAL) Protime-INR (06/17/2018 9:54 AM CDT) INR 2.8(H) [facility] - [place] Comment: Reference Range ? 0.9-1.1 Moderate-intensity Warfarin Therapy 2.0-3.0 Higher-intensity Warfarin Therapy ?? 3.0-4.0 PT 27.1(H) 9.0 - 11.5 sec [facility] - [place] Comment: For more information on this test, go to: http://[employer].[email or web address]/faq/GRV922 Blood specimen (specimen) 06/17/2018 9:54 AM CDT 06/17/2018 9:55 AM CDT Narrative Resulting Agency Comment Performing Organization Information: ?Site ID: JAREN ?Name: [facility] ?Address: [address] [address] ?Director: Darryl Keys D.O. MPH Catarina Huerta MD LAB BLOOD ORDERABLES Final R esult Performing Organization Address [facility] Co de Phone Number [facility] [place] * (ABNORMAL) Protime-INR (06/09/2018 11:15 AM CDT) INR 2.4(H) [facility] - [place] Comment: Reference Range ? 0.9-1.1 Moderate-intensity Warfarin Therapy 2.0-3.0 Higher-intensity Warfarin Therapy ?? 3.0-4.0 PT 23.6(H) 9.0 - 11.5 sec [facility] [place] Comment: For more information on this test, go to: http://education.Voice2Insight/faq/KCI592 Blood specimen (specimen) 06/09/2018 11:15 AM CDT 06/09/2018 11:15 AM CDT Narrative Resulting Agency Comment Performing Organization Information: ?Site ID: JAREN ?Name: [facility] ?Address: [facility] [place] [address] ?Director: Darryl Keys D.O. MPH us Catarina Huerta MD LAB BLOOD ORDERABLES Final R esult Performing Organization Address [facility] Co de Phone Number JAREN Guevara * (ABNORMAL) Protime-INR (05/31/2018 1:22 PM CDT) INR 1.8(H) [facility] - [place] Comment: Reference Range ? 0.9-1.1 Moderate-intensity Warfarin Therapy 2.0-3.0 Higher-intensity Warfarin Therapy ?? 3.0-4.0 PT 18.1(H) 9.0 - 11.5 sec [facility] - [place] Comment: For more information on this test, go to: http://[employer]W Technologies/faq/EBL503 Blood specimen (specimen) 05/31/2018 1:22 PM CDT 05/31/2018 1:23 PM CDT Narrative Resulting Agency Comment Performing Organization Information: ?Site ID: JAREN ?Name: [facility] ?Address: [address] [address] ?Director: Darryl Keys D.O. MPH Catarina Huerta MD LAB BLOOD ORDERABLES Final R esult [facility] - [place] * (ABNORMAL) Protime-INR (03/30/2018 10:01 AM CHIEF OPERATOR SYNTHESIS) INR 3.9(H) [facility] - [place] Comment: Reference Range ? 0.9-1.1 Moderate-intensity Warfarin Therapy 2.0-3.0 Higher-intensity Warfarin Therapy ?? 3.0-4.0 PT 37.3(H) 9.0 - 11.5 sec [facility] - [place] Comment: For more information on this test, go to: http://[employer].[email or web address]/faq/UXM116 Blood specimen (specimen) 03/30/2018 10:01 AM CHIEF OPERATOR SYNTHESIS 03/30/2018 10:02 AM CHIEF OPERATOR SYNTHESIS Narrative [facility] - 03/31/2018 6:01 AM CHIEF OPERATOR SYNTHESIS FASTING:NO FASTING: NO Resulting Agency Comment Performing Organization Information: ?Site ID: JAREN ?Name: [facility] ?Address: [address] [address] ?Director: Darryl Keys D.O. MPH Catarina Huerta MD LAB BLOOD ORDERABLES Final R esult [facility] [place] * (ABNORMAL) Protime-INR (03/17/2018) INR 2.30(A) 0.9 - 1.1 EXTERNAL LAB Blood specimen (specimen) Historical Provider LAB BLOOD ORDERABLES Sri [place] Result EXTERNAL LAB documented in this encounter Visit Diagnoses Diagnosis Atrial fibrillation, unspecified type (HCC) documented in this encounter Care Teams Clinical Nurse Manager Relationship Specialty Start Date End Date Wilber Cleaning Jr., MD [address] [place] [address] PCP - General 07/03/16 07/15/20 documented as of this encounter
--- OUTSIDE RECORDS SUMMARY | 2024-03-25 11:07 | XMS_ITS | Encounter Summary ---
Author Organization [facility] Address [address] [place] [address] Phone Care Team Providers Care Skinner Pelts Name Role Phone Hermila Calhoun MD, Wilber Martinez Primary Care Provider Encounter Details Date Type Department Care Team (Late st Contact Info) Description 12/21/2017 Nurse Triage [facility] Cardiology [address] [facility] Medical Office Building [address] [place] [address] Catarina Huerta MD [address] [facility] [address] [place] [address] Social History Tobacco Use Types Packs/Day Years Used Date Smoking Tobacco: Never Smokeless Tobacco: Never Comments Unknown Sex and Gender Information Value Date Recorded Sex Assigned at Not on file Legal Sex Female 4:20 AM AUTOMATIC LEHR OPERATOR Gender Identity Not on file Sexual Orientation Not on file documented as of this encounter Miscellaneous Notes * Telephone Encounter - Gail Redman MA - 12/21/2017 8:23 AM CDT erroneous encounter documented in this encounter Plan of Treatment Not on file documented as of this encounter Visit Diagnoses Not on filedocumented in this encounter Care Teams Skinner Pelts Relationship Specialty Start Date End Date Wilber Cleaning Jr., MD [address] [place] [address] PCP - General 07/03/16 07/15/20 documented as of this encounter
--- OUTSIDE RECORDS SUMMARY | 2024-03-25 11:07 | XMS_ITS | Encounter Summary ---
Author Organization [facility] Address [address] [place] [address] Phone Care Team Providers Care Planning Director Name Role Phone Hermila Calhoun MD, Oscar A. Primary Care Provider Reason for Referral * (Routine) - Closed Specialty Diagnoses / Procedures Referred By Contac t Referred To Contact Diagnoses Paroxysmal atrial fibrillation (CMS/HCC) (HCC) Procedures ECG 12 lead Catarina Huerta MD Phone: tel: fax: Heart [facility] Referral ID Status Reason Start Date Expiration Date Visits Re quested Visits Authorized [id number] Closed 08/23/2018 03/03/2020 1 1 Reason for Visit * Reason Comments Follow-up * Cardiology (Routine) - Closed Specialty Diagnoses / Procedures Referred By Contac t Referred To Contact Cardiology Diagnoses BP Procedures RETURN India Cleaning Jr., MD Phone: tel: fax: Catarina Huerta MD [address] [facility] [address] [place] [address] Phone: tel: fax: Referral ID Status Reason Start Date Expiration Date Visits Re quested Visits Authorized [id number] Closed 08/17/2018 12/13/2018 5 5 Encounter Details Date Type Department Care Team (Latest Contact Info) Description 08/23/2018 1:30 PM CDT Office Visit [facility] Cardiology [address] [facility] Medical Office Building [address] [place] [address] Catarina Huerta MD [facility] [address] [place] [address] Essential hypertension (Primary Dx); Paroxysmal atrial fibrillation (CMS/HCC); Hyperlipidemia, unspecified hyperlipidemia type Social History Tobacco Use Types Packs/Day Years Used Date Smoking Tobacco: Never Smokeless Tobacco: Never Comments Unknown Sex and Gender Information Value Date Recorded Sex Assigned at Not on file Legal Sex Female 4:20 AM PROFESSOR OF FLORICULTURE Gender Identity Not on file Sexual Orientation [...] this encounter Patient Instructions * Patient Instructions* Catarnia Huerta MD - 08/23/2018 1:30 PM CDT [...] CDT Date: 08/23/2018 INDIA CLEANING MD [address] [place], [place] [id number] Patient Name: EVAN HODGSON Date of : [...] 08/23/2018 04:49 PM Catarina Huerta M.D., F.A.C.C. medical reviewer LS/an cc: INDIA CLEANING MD / / [...] BLOOD ORDERABLES Final R esult [facility] [address] [facility]. Department [place] [address] * ECG 12 lead (08/23/2018) Catarina Huerta MD ECG ORDERABLES Final Result documented in this encounter Visit Diagnoses Diagnosis Essential hypertension- Primary Unspecified essential hypertension Paroxysmal atrial fibrillation (CMS/HCC) (HCC) Atrial fibrillation Hyperlipidemia, unspecified hyperlipidemia type Paroxysmal atrial fibrillation (CMS/HCC) (HCC) Atrial fibrillation documented in this encounter Care Teams Planning Director Relationship Specialty Start Date End Date India Cleaning Jr., MD [facility] [place] [address] PCP - General 07/03/16 07/15/20 documented as of this encounter
--- OUTSIDE RECORDS SUMMARY | 2024-03-25 11:07 | XMS_ITS | Encounter Summary ---
Author Organization [facility] Address [address] [place] [address] Phone Care Team Providers Care Paraprofessional Education Assistant Name Role Phone Hermila Calhoun MD, Wilber Martinez Primary Care Provider Encounter Details Date Type Department Care Team (Latest Contact Info) Description 12/21/2017 Anticoagulation Telephone Call [facility] Cardiology [address] [facility] Medical Office Building [address] [place] [address] Catarina Huerta MD [address] [facility] [address] [place] [address] Atrial fibrillation, unspecified type (CMS/HCC) Social History Tobacco Use Types Packs/Day Years Used Date Smoking Tobacco: Never Smokeless Tobacco: Never Comments Unknown Sex and Gender Information Value Date Recorded Sex Assigned at Not on file Legal Sex Female 4:20 AM QUAHOGGER Gender Identity Not on file Sexual Orientation [...] (HCC) documented in this encounter Care Teams Paraprofessional Education Assistant Relationship Specialty Start Date End Date Wilber Cleaning Jr., MD [address] [place] [address] PCP - General 07/03/16 07/15/20 documented as of this encounter
--- OUTSIDE RECORDS SUMMARY | 2024-03-25 11:07 | XMS_ITS | Encounter Summary ---
Author Organization [facility] Address [address] [place] [address] Phone Care Team Providers Care Legal Practice Manager Name Role Phone Hermila Calhoun MD, Wilber Martinez Primary Care Provider Ryann Galdamez Primary Care Provider [phone] Ryann Galdamez Primary Care Provider [phone] Chris Mendes MD Unavailable [phone] Keli Orozco RN Unavailable Unavailable Alysa Newton RN Unavailable Cuba Larsen MD Primary Care Provider [phone] Keli Orozco RN Unavailable Unavailable Keli Orozco [...] file Legal Sex Female 4:20 AM 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 Aislinn Goldsmith, HARNESS BRUSHER 06/09/2019 06/09/2019 06/09/2019 4:20 PM C DT documented as of this encounter Care Teams Legal Practice Manager Relationship Specialty Start Date End Date Wilber Cleaning Jr., MD [address] [place] [address] PCP - General 07/03/16 07/15/20 Ryann Galdamez PA [address] [place] [address] PCP - General Nursing Home Assistant Administrator 07/16/20 04/01/21 Ryann Galdamez PA [address] [place] [address] PCP - General Nursing Home Assistant Administrator 04/02/21 01/22/22 Cuba Larsen MD [address] [facility] [address] [place] [address] PCP - General Family Medicine 01/23/22 Chris Mendes MD [address] [place] [address] Referring Physician Cardiology 12/23/21 Keli Orozco, ios architectRotor Plate Washer Cardiology 12/23/21 04/15/23 Alysa Newton, RN [address] [facility] [address] [place] [address] Rotor Plate Washer Cardiology 12/23/21 Keli Orozco, superintendent quarry Failure Coordinator 04/02/23 4 Keli Orozco, superintendent quarry Failure Coordinator Transplant 04/15/23 Tami Mcknight RN Heart Failure Coordinator Cardiology 09/14/23 documented as of this encounter
--- OUTSIDE RECORDS SUMMARY | 2024-03-25 11:07 | XMS_ITS | Encounter Summary ---
Author Organization [facility] Address [address] [place] [address] Phone Care Team Providers Care Molding Engineer Name Role Phone Hermila Calhoun MD, Wilber Martinez Primary Care Provider Encounter Details Date Type Department Care Team (Latest Contact Info) Description 10/01/2018 Anticoagulation Telephone Call [facility] Cardiology [address] [facility] Medical Office Building [address] [place] [address] Catarina Huerta MD [address] [facility] [address] [place] [address] Persistent atrial fibrillation (CMS/HCC) Social History Tobacco Use Types Packs/Day Years Used Date Smoking Tobacco: Never Smokeless Tobacco: Never Comments Unknown Sex and Gender Information Value Date Recorded Sex Assigned at Not on file 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
--- OUTSIDE RECORDS SUMMARY | 2024-03-25 11:07 | XMS_ITS | Encounter Summary ---
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
--- OUTSIDE RECORDS SUMMARY | 2024-03-25 11:07 | XMS_ITS | Encounter Summary ---
Author Organization [facility] Address [address] [place] [address] Phone Care Team Providers Care Cisco Administrator Name Role Phone Hermila Calhoun MD, Wilber Martinez Primary Care Provider Reason for Visit * Cardiology (Routine) - Closed Specialty Diagnoses / Procedures Referred By Contac t Referred To Contact Diagnoses AF (paroxysmal atrial fibrillation) (CMS/HCC) (HCC) Dyspnea, unspecified type Procedures Transthoracic Echo Complete W Doppler/CF Cassandra Fish MD Phone: tel: fax: [facility] Referral ID Status Reason Start Date Expiration Date Visits Re quested Visits Authorized [id number] Closed 12/27/2018 07/07/2020 1 1 Encounter Details Date Type Department Care Team (Late st Contact Info) Description 12/31/2018 9:30 AM CDT Ancillary Procedure [facility] [address] [facility] [address] [place] [address] Cassandra Fish MD [address] [facility] [address] [place] [address] AF (paroxysmal atrial fibrillation) (CMS/HCC); Dyspnea, unspecified type Discharge Disposition: Discharge to home or self care Social History Tobacco Use Types Packs/Day Years Used Date Smoking Tobacco: Never Smokeless Tobacco: Never Comments Unknown Sex and Gender Information Value Date Recorded Sex Assigned at Not on file 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 Contrast Administered by: Nan Mejia RN Supervised/Interpreted by: Nathen Ortiz MD Diagnosis: Location: [facility] Reason for test: Atrial Fibrillation MV [...] 2=Hypo 3=Akinetic 4=Dyskin./Aneurysm 0=Not visualized) Parasternal Long [place]:MAS=2 BAS=2 MP=2 BP=2 Parasternal [place]:MAS=2 MS=2 HI=2 MP=2 ML=2 MA=2 Apical 4 Chambers:=2 MS=2 BS=2 BL=2 HI=2 AL=2 Apical 2 Chambers:AI=2 HI=2 BI=2 BA=2 MA=2 AA=2 LV Global Longitudinal Strain: -13.5% ??(Normal <-19%) RV Global Longitudinal Strain: LV Function: Mild Global reduction in LV Ejection Fraction (EF=41-53%) RV Function: Normal Septal Motion: Normal Pericardial Effusion: none seen Atrial Septum: Normal DOPPLER/COLOR FOLOW DOPPLER RESULTS: Diastolic Function: Grade I, altered relax. w/N. LA pres. Tricuspid Valve: mild TV regurgitation Pulmonic Valve: Mild [place] AV Regurgitation: No AR seen AV Stenosis: [...] , no MS, mild TV regurgitation, Mild [place]. Diastolic function: Grade I, altered relax. w/N. [...] MD By signing this report, the attending force adjustment supervisor certifies that he or she has personally supervised and interpreted the echocardiogram and has reviewed and or edited and agrees with the written comments contained within the report. Procedure Note Nathen Ortiz MD - 01/03/2019 Patient name: Prema Pearce Date of test: 12/31/2018 Type of test: TTE /[facility] #: [id number] Date of : 1940 (F) Receptionist Clerk: Maryann Kamara RDMS, RVT, RDCS Referring Physician: CASSANDRA FISH MD Contrast Agent: 1.1 ml Optison Administered, (1.9 ml wasted). Contrast Administered by: Nan Mejia RN Supervised/Interpreted by: Nathen Ortiz MD Diagnosis: Location: [facility] Reason for test: Atrial Fibrillation MV [...] 2=Hypo 3=Akinetic 4=Dyskin./Aneurysm 0=Not visualized) Parasternal [place]:MAS=2 BAS=2 MP=2 BP=2 Parasternal [place]:MAS=2 MS=2 HI=2 MP=2 ML=2 MA=2 Apical 4 Chambers:=2 MS=2 BS=2 BL=2 HI=2 AL=2 Apical 2 Chambers:AI=2 HI=2 BI=2 BA=2 MA=2 AA=2 LV Global Longitudinal Strain: -13.5% (Normal <-19%) RV Global Longitudinal Strain: LV Function: Mild Global reduction in LV Ejection Fraction (EF=41-53%) RV Function: Normal Septal Motion: Normal Pericardial Effusion: none seen Atrial Septum: Normal DOPPLER/COLOR FOLOW DOPPLER RESULTS: Diastolic Function: Grade I, altered relax. w/N. LA pres. Tricuspid Valve: mild TV regurgitation Pulmonic Valve: Mild [place] AV Regurgitation: No AR seen AV Stenosis: [...] , no MS, mild TV regurgitation, Mild [place]. Diastolic function: Grade I, altered relax. w/N. [...] MD By signing this report, the attending force adjustment supervisor certifies that he or she has personally supervised and interpreted the echocardiogram and has reviewed and or edited and agrees with the written comments contained within the report. Result [facility] Cassandra Mccormick MD CV ECHO PROCEDUR [...] mL documented in this encounter Care Teams Cisco Administrator Relationship Specialty Start Date End Date Wilber Cleaning Jr., MD [address] [place] [address] PCP - General 07/03/16 07/15/20 documented as of this encounter
--- OUTSIDE RECORDS SUMMARY | 2024-03-25 11:07 | XMS_ITS | Encounter Summary ---
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 Aislinn Goldsmith, OUTSIDE LABORER 06/09/2019 06/09/2019 06/09/2019 4:20 PM C DT documented as of this encounter Care Teams Aix Administrator Relationship Specialty Start Date End Date Wilber Cleaning Jr., MD [address] [place] [address] PCP - General 07/03/16 07/15/20 Ryann Galdamez PA [address] [place] [address] PCP - General Director Enterprise Sales 07/16/20 04/01/21 documented as of this encounter
--- OUTSIDE RECORDS SUMMARY | 2024-03-25 11:07 | XMS_ITS | Encounter Summary ---
Author Organization [facility] Address [address] [place] [address] Care Team Providers Care Donor Technician Name Role Phone Hermila Calhoun MD, Oscar A. 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 VEST PRESSER Gender Identity Not on file Sexual Orientation Not on file documented as of this encounter Plan of Treatment Not on file documented as of this encounter Procedures Procedure Name Priority Date/Time Associated Diagnosis Comments COPY RECEIVED FROM Routine 02/12/2018 10 :25 AM VEST PRESSER VITAMIN D 25 HYDROXY Routine 02/12/2018 10:25 AM VEST PRESSER ALT Routine 02/12/2018 10:25 AM VEST PRESSER AST Routine 02/12/2018 10:25 AM VEST PRESSER MAGNESIUM Routine 02/12/2018 10:25 AM VEST PRESSER HEMOGLOBIN A1C Routine 02/12/2018 10:25 AM VEST PRESSER LIPID PANEL Routine 02/12/2018 10:25 AM VEST PRESSER BASIC METABOLIC PANEL Routine 02/12/2018 10:25 AM VEST PRESSER documented in this encounter Results * Vitamin D 25 hydroxy (02/12/2018 10:25 AM VEST PRESSER) Pathologist [facility] Vitamin D 25-OH 30 30 - 100 ng/mL Estify [facility] Comment: Vitamin D Status ? 25-OH Vitamin D: Deficiency: ?<20 ng/mL Insufficiency: ? 20 - 29 ng/mL Optimal: ? > or = 30 ng/mL For 25-OH Vitamin D testing on patients on D2-supplementation and patients for whom quantitation of D2 and D3 fractions is required, the QuestAssureD(TM) 25-OH VIT D, (D2,D3), LC/MS/MS is recommended: order code 19613 (patients >2yrs). For more information on this test, go to: http://education.[employer]/faq/QJZ184 (This link is being provided for informational/educational purposes only.) 02/12/2018 10:2 5 AM VEST PRESSER 02/12/2018 10:29 AM VEST PRESSER Narrative [facility] - 02/13/2018 6:13 AM VEST PRESSER FASTING:YES FASTING: YES Resulting Agency Comment Performing Organization Information: ?Site ID: [place] ?Name: [facility] ?Address: [address] [address] ?Director: Darryl Keys D.O., MPH Wilber Cleaning Jr., MD LAB BLOOD ORDERABLES F inal Result Performing Organization Address [facility]/ZIP Co de Phone Number [facility]ULIO C[facility] JAREN Duggan * (ABNORMAL) Hemoglobin A1c (02/12/2018 10:25 AM VEST PRESSER) Hgb A1C 6.8(H) <5.7 % of total [...] copy faxed has been acknowledged. ?Queued to: ??[id number] 02/12/2018 10:2 5 AM VEST PRESSER 02/12/2018 10:29 AM VEST PRESSER Narrative [facility] - 02/13/2018 6:13 AM VEST PRESSER FASTING:YES FASTING: YES Resulting Agency Comment Performing Organization Information: ?Site ID: [place] ?Name: [facility] ?Address: [address] [place] [address] [place] [address] ?Director: Darryl Keys D.O., MPH us Wilber Cleaning Jr., MD LAB BLOOD ORDERABLES F inal Result Performing Organization Address [facility]/ZIP Co de Phone Number JULIO CÉSAR [employer]AREN omalley * (ABNORMAL) Basic metabolic panel (02/12/2018 10:25 AM VEST PRESSER) Glucose 142(H) 65 - 99 mg/dL JULIO [...] approximately 13% higher for people identified as -Nepalese. eGFR NON-AFR. GRENADIAN 90 > OR = 60 mL/min/1. 73m2 [...] [place] Calcium 10.1 8.6 - 10.4 mg/dL [facility] - [place] 02/12/2018 10:2 5 AM VEST PRESSER 02/12/2018 10:29 AM VEST PRESSER Narrative [facility] - 02/13/2018 6:13 AM VEST PRESSER FASTING:YES FASTING: YES Resulting Agency Comment Performing Organization Information: ?Site ID: [place] ?Name: [facility] ?Address: [address] [address] ?Director: Darryl Keys D.O. MPH Wilber Cleaning Jr., MD LAB BLOOD ORDERABLES F inal Result [facility] [employer] [facility] - [place] JAREN [place] * ALT (02/12/2018 10:25 AM VEST PRESSER) ALT (SGPT) 18 6 - 29 U/L JULIO CÉSAR [employer] ( [facility] ) [facility] [employer] 02/12/2018 10:2 5 AM VEST PRESSER 02/12/2018 10:29 AM VEST PRESSER Narrative [facility] - 02/13/2018 6:13 AM VEST PRESSER FASTING:YES FASTING: YES Resulting Agency Comment Performing Organization Information: ?Site ID: [place] ?Name: [facility] ?Address: [facility] JAR[place] [address] ?Director: Darryl Keys D.O., MPH Wilber Cleaning Jr., MD LAB BLOOD ORDERABLES F inal Result Performing Organization Address [facility] de Phone Number JULIO CÉSAR [facility] - JAREN Duggan * AST (02/12/2018 10:25 AM VEST PRESSER) AST 17 10 - 35 U/L [facility] - JAREN 02/12/2018 10:2 5 AM VEST PRESSER 02/12/2018 10:29 AM VEST PRESSER Narrative [facility] - 02/13/2018 6:13 AM VEST PRESSER FASTING:YES FASTING: YES Resulting Agency Comment Performing Organization Information: ?Site ID: [place] ?Name: [facility] ?Address: [facility] [place] [address] ?Director: Darryl Keys D.O., MPH Wilber Cleaning Jr., MD LAB BLOOD ORDERABLES F inal Result Performing Organization Address [facility] Phone Number JULIO CÉSAR [facility] - JAREN Duggan * Magnesium (02/12/2018 10:25 AM VEST PRESSER) Magnesium 1.9 1.5 - 2.5 mg/dL [facility] - [place]AR[place] 02/12/2018 10:2 5 AM VEST PRESSER 02/12/2018 10:29 AM VEST PRESSER Narrative [facility] - 02/13/2018 6:13 AM VEST PRESSER FASTING:YES FASTING: YES Resulting Agency Comment Performing Organization Information: ?Site ID: [place] ?Name: [facility] ?Address: [facility] [place] [address] ?Director: Darryl Keys D.O., MPH Wilber Cleaning Jr., MD LAB BLOOD ORDERABLES F inal Result Performing Organization Address [facility]/State/ZIP Co de Phone Number [facility] - JAREN Duggan * (ABNORMAL) Lipid panel (02/12/2018 10:25 AM VEST PRESSER) Cholesterol 179 <200 mg/dL [facility] - [place] HDL 28(L) >50 mg/dL [facility] [place] Triglycerides 228(H) <150 mg/dL [facility] [place] LDL 116(H) mg/dL (calc) [facility] [place] Comment: Reference range: <100 Desirable range <100 mg/dL for primary prevention; ?? <70 mg/dL for patients with CHD or diabetic patients with > or = 2 CHD risk factors. LDL-C is now calculated using the Buzz-Rao calculation, which is a validated novel method providing better accuracy than the Friedewald equation in the estimation of LDL-C. Buzz SS et al. WILFRIDO. 2013;310(06): 0967-5196 (http://education.[employer]/faq/EBH408) Chol/HDL ratio 6.4(H) <5.0 (calc) [facility] [place] Non-HDL, (LDL+VLDL) 151(H) <130 mg/dL (calc) [facility] [place] Comment: For patients with diabetes plus 1 major ASCVD risk factor, treating to a non-HDL-C goal of <100 mg/dL (LDL-C of <70 mg/dL) is considered a therapeutic option. 02/12/2018 10:2 5 AM VEST PRESSER 02/12/2018 10:29 AM VEST PRESSER Narrative [facility] - 02/13/2018 6:13 AM VEST PRESSER FASTING:YES FASTING: YES Resulting Agency Comment Performing Organization Information: ?Site ID: JAREN ?Name: [facility] ?Address: [address] [facility] [address] [address] ?Director: Darryl Keys D.O., MPH us Wilber Cleaning Jr., MD LAB BLOOD ORDERABLES F inal Result JAREN Guevara * Copy received from (02/12/2018 10:25 AM VEST PRESSER) Copy Rec'd from: [facility] Comment: ?[facility] ?[address] ?[place] [address] 02/12/2018 10:2 5 AM VEST PRESSER 02/12/2018 10:29 AM VEST PRESSER Narrative [facility] - 02/13/2018 6:13 AM VEST PRESSER FASTING:YES FASTING: YES us Wilber Cleaning Jr., MD LAB BLOOD ORDERABLES F inal Result [facility] documented in this encounter Visit Diagnoses Not on filedocumented in this encounter Care Teams Donor Technician Relationship Specialty Start Date End Date Wilber Cleaning Jr., MD [address] [place] [address] PCP - General 07/03/16 07/15/20 documented as of this encounter
--- OUTSIDE RECORDS SUMMARY | 2024-03-25 11:07 | XMS_ITS | Encounter Summary ---
Author Organization [facility] Address [address] [place] [address] Phone Care Team Providers Care Pile Fabric Knitter Name Role Phone Hermila Calhoun MD, Wilber Martinez Primary Care Provider Encounter Details Date Type Department Care Team (Late st Contact Info) Description 06/02/2018 Telephone [facility] Cardiology [facility] Medical Office Building [address] [place] [address] Suzie Gonzales Social History Tobacco Use Types Packs/Day Years Used Date Smoking Tobacco: Never Smokeless Tobacco: Never Comments Unknown Sex and Gender Information Value Date Recorded Sex Assigned at Not on file 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
--- OUTSIDE RECORDS SUMMARY | 2024-03-25 11:07 | XMS_ITS | Encounter Summary ---
Author Organization [facility] Address [address] [place] [address] Phone Care Team Providers Care Cat Operator Name Role Phone Hermila Calhoun MD, India Martinez Primary Care Provider Reason for Visit * Cardiology (Routine) - Closed Specialty Diagnoses / Procedures Referred By Indra muñoz Referred To Contact Cardiology Diagnoses 6m Procedures RETURN [facility] [address] [facility] [address] [place] [address] Phone: tel: Catarina Huerta MD [address] [address] Phone: tel: fax: Referral ID Status Reason Start Date Expiration Date Visits Re quested Visits Authorized [id number] Closed 06/01/2018 08/13/2018 5 5 Encounter Details Date Type Department Care Team (Latest Contact Info) Description 06/02/2018 1:15 PM CDT Office Visit [facility] Cardiology [address] [place] [address] Medical Office Building [address] [place] [address] Catarina Huerta MD [address] [id number] Persistent atrial fibrillation (CMS/HCC) (Primary Dx); Essential hypertension; Hyperlipidemia, unspecified hyperlipidemia type Social History Tobacco Use Types Packs/Day Years Used Date Smoking Tobacco: Never Smokeless Tobacco: Never Comments Unknown Sex and Gender Information Value Date Recorded Sex Assigned at Not on file 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 Cleaning: Evan Hodgson returned in Cardiology follow-up today. She is a 78-year-old woman with paroxysmalatrial fibrillation, being managed with sotalol and warfarin. She is not as symptomatic when she has episodes as she once was. She is sure she had one around [place]. She did not note that she was in AFib until I told her today. In general, her heart has not been a problem for her. She has been under a great deal of stress with illness of family members and following a fall, in which she suffered a compression fracture back over [place]. With her usual activities, however, she denies [...] 06/02/2018 04:11 PM Catarina Huerta M.D., F.A.C.C. tack puller MERCEDEZ/jair cc: INDIA CLEANING MD / / [...] 12/27/2018 added in this encounter Care Teams Cat Operator Relationship Specialty Start Date End Date India Cleaning Jr., MD [address] [place] [address] PCP - General 07/03/16 07/15/20 documented as of this encounter
--- OUTSIDE RECORDS SUMMARY | 2024-03-25 11:07 | XMS_ITS | Encounter Summary ---
Author Organization [facility] Address [address] [place] [address] Phone Care Team Providers Care Stem Teacher Name Role Phone Hermila Calhoun MD, Wilber Martinez Primary Care Provider Encounter Details Date Type Department Care Team (Latest Contact Info) Description 06/10/2018 Anticoagulation Telephone Call [facility] Cardiology [address] [facility] Medical Office Building [address] [place] [address] Catarina Huerta MD [address] [facility] [address] [place] [address] Atrial fibrillation, unspecified type (CMS/HCC) Social History Tobacco Use Types Packs/Day Years Used Date Smoking Tobacco: Never Smokeless Tobacco: Never Comments Unknown Sex and Gender Information Value Date Recorded Sex Assigned at Not on file 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
--- OUTSIDE RECORDS SUMMARY | 2024-03-25 11:07 | XMS_ITS | Encounter Summary ---
Author Organization [facility] Address [address] [place] [address] Phone Care Team Providers Care Insurance Consultant Name Role Phone Hermila Calhoun MD, Wilber Martinez Primary Care Provider Reason for Visit * Reason Onset Date Comments Anticoagulation 09/23/2017 Encounter Details Date Type Department Care Team (Latest Contact Info) Description 09/23/2017 Anticoagulation Telephone Call [facility] Cardiology [address] [facility] Medical Office Building [address] [place] [address] Catarina Huerta MD [facility] [address] [place] [address] Atrial fibrillation, unspecified type (CMS/[facility]) Social History Tobacco Use Types Packs/Day Years Used Date Smoking Tobacco: Never Comments Unknown Sex and Gender Information Value Date Recorded Sex Assigned at Not on file Legal Sex Female 4:20 AM SENIOR CLINICAL CONSULTANT Gender Identity Not on file Sexual [...] (HCC) documented in this encounter Care Teams Insurance Consultant Relationship Specialty Start Date End Date Wilber Cleaning Jr., MD [facility] [place] [address] PCP - General 07/03/16 07/15/20 documented as of this encounter
--- OUTSIDE RECORDS SUMMARY | 2024-03-25 11:07 | XMS_ITS | Encounter Summary ---
Author Organization [facility] Address [address] [place] [address] Phone Care Team Providers Care Auto Body Technician Name Role Phone Hermila Calhoun MD, [...] on file Legal Sex Female 4:20 AM FISHER NET Gender Identity Not on file Sexual Orientation [...] filedocumented in this encounter Care Teams Auto Body Technician Relationship Specialty Start Date End Date Wilber Cleaning Jr., MD [address] [place] [address] PCP - General 07/03/16 07/15/20 documented as of this encounter
--- OUTSIDE RECORDS SUMMARY | 2024-03-25 11:07 | XMS_ITS | Encounter Summary ---
Author Organization [facility] Address [address] [place] [address] Phone Care Team Providers Care Client Technical Support Associate Name Role Phone Hermila Calhoun MD, Wilber Martinez Primary Care Provider Encounter Details Date Type Department Care Team (Late st Contact Info) Description 10/27/2017 Telephone [facility] Cardiology [address] [place] [address] Medical Office Building [address] [place] [address] Catarina Huerta MD [facility] [address] [address] Social History Tobacco Use Types Packs/Day Years Used Date Smoking Tobacco: Never Comments Unknown Sex and Gender Information Value Date Recorded Sex Assigned at Not on file 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 Catarina Huerta MD [facility] [place] ?? Lipids are ok 10/[address] Huerta has reviewed lipid labwork from July. No change in plan of care atthis time. documented in this encounter Plan of Treatment Not on file documented as of this encounter Visit Diagnoses Not on filedocumented in this encounter Care Teams Client Technical Support Associate Relationship Specialty Start Date End Date Wilber Cleaning Jr., MD [facility] [place] [address] PCP - General 07/03/16 07/15/20 documented as of this encounter
--- OUTSIDE RECORDS SUMMARY | 2024-03-25 11:07 | XMS_ITS | Encounter Summary ---
Author Organization [facility] Address [address] [place] [address] Phone Care Team Providers Care Video And Sound Recorder Name Role Phone Hermila Calhoun MD, Wilber Martinez Primary Care Provider Encounter Details Date Type Department Care Team (Latest Contact Info) Description 02/25/2019 Anticoagulation Telephone Call [facility] Cardiology [address] [facility] Advanced Medicine 8th [place] [address] [place] [address] Cathleen Walker MD [address] 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
--- OUTSIDE RECORDS SUMMARY | 2024-03-25 11:07 | XMS_ITS | Encounter Summary ---
Author Organization [facility] Address [address] [place] [address] Phone Care Team Providers Care Psychological Examiner Name Role Phone Hermila Calhoun MD, Wilber Martinez Primary Care Provider Encounter Details Date Type Department Care Team (Latest Contact Info) Description 10/20/2017 Anticoagulation Telephone Call [facility] Cardiology [address] [facility] Medical Office Building [address] [place] [address] Catarina Huerta MD [address] [facility] [address] [place] [address] Atrial fibrillation, unspecified type (CMS/HCC) Social History Tobacco Use Types Packs/Day Years Used Date Smoking Tobacco: Never Comments Unknown Sex and Gender Information Value Date Recorded Sex Assigned at Not on file 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
--- OUTSIDE RECORDS SUMMARY | 2024-03-25 11:07 | XMS_ITS | Encounter Summary ---
Author Organization [facility] Address [address] [place] [address] Phone Care Team Providers Care Gas Main Fitter Name Role Phone Hermila Calhoun MD, Wilber Martinez Primary Care Provider Encounter Details Date Type Department Care Team (Latest Contact Info) Description 02/10/2018 Anticoagulation Telephone Call [facility] Cardiology [facility] Medical Office Building [address] [place] [address] Margarita Méndez RN Atrial fibrillation, unspecified type (CMS/HCC) Social History Tobacco Use Types Packs/Day Years Used Date Smoking Tobacco: Never Smokeless Tobacco: Never Comments Unknown Sex and Gender Information Value Date Recorded Sex Assigned at Not on file Legal Sex Female 4:20 AM PERSONAL SUPPORT WORKER Gender Identity Not on file Sexual Orientation Not on file documented as of this encounter Miscellaneous Notes * Telephone Encounter - Lina Colvin MA - 02/10/2018 12:58 PM PERSONAL SUPPORT WORKER LMOR with results and recommendations and to call back if any questions or concerns. ONAL SUPPORT WORKER * Telephone Encounter - Margarita Méndez RN - 02/10/2018 12:27 PM PERSONAL SUPPORT WORKER Please call pt. ONAL SUPPORT WORKER * Telephone Encounter - Margarita Méndez RN - 02/10/2018 12:26 PM PERSONAL SUPPORT WORKER No change, recheck 4 weeks. jf ONAL SUPPORT WORKER documented in this encounter Plan of Treatment Not on file documented as of this encounter Visit Diagnoses Diagnosis Atrial fibrillation, unspecified type (HCC) documented in this encounter Care Teams Gas Main Fitter Relationship Specialty Start Date End Date Wilber Cleaning Jr., MD [address] [place] [address] PCP - General 07/03/16 07/15/20 documented as of this encounter
--- OUTSIDE RECORDS SUMMARY | 2024-03-25 11:07 | XMS_ITS | Encounter Summary ---
Author Organization [facility] Address [address] [place] [address] Phone Care Team Providers Care Optical Glass Inspector Name Role Phone Hermila Calhoun MD, India Martinez Primary Care Provider Reason for Referral * (Routine) - Closed Specialty Diagnoses / Procedures Referred By Contac t Referred To Contact Diagnoses Paroxysmal A-fib (CMS/HCC) (HCC) Procedures ECG 12 lead Catarina Huerta MD Phone: tel: fax: [facility] (All Locations) Referral ID Status Reason Start Date Expiration Date Visits Re quested Visits Authorized [id number] Closed 11/25/2017 06/06/2019 1 1 Reason for Visit * Reason Comments Follow-up * Cardiology (Routine) - Closed Specialty Diagnoses / Procedures Referred By Contac t Referred To Contact Cardiology Diagnoses abstracted Appt Comment: 6M Procedures RETURN India Cleaning Jr., MD Phone: tel: fax: Catarina Huerta MD [address] [facility] [address] [place] [address] Phone: tel: fax: Referral ID Status Reason Start Date Expiration Date Visits Re quested Visits Authorized [id number] Closed 11/20/2017 01/20/2018 3 3 Encounter Details Date Type Department Care Team (Late st Contact Info) Description 11/25/2017 1:15 PM CDT Office Visit [facility] Cardiology [address] [facility] Medical Office Building [address] [place] [address] Catarina Huerta MD [address] [facility] [address] [place] [address] Paroxysmal A-fib (CMS/HCC) (Primary Dx); Essential hypertension; Anticoagulated Social History Tobacco Use Types Packs/Day Years Used Date Smoking Tobacco: Never Smokeless Tobacco: Never Comments Unknown Sex and Gender Information Value Date Recorded Sex Assigned at Not on file 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 higher education administrator /[facility] cc: INDIA CLEANING MD / / documented [...] 09/07/2018 added in this encounter Care Teams Optical Glass Inspector Relationship Specialty Start Date End Date India Cleaning Jr., MD [address] [place] [address] PCP - General 07/03/16 07/15/20 documented as of this encounter
--- OUTSIDE RECORDS SUMMARY | 2024-03-25 11:07 | XMS_ITS | Encounter Summary ---
Author Organization [facility] [place] Address [address] [place] [address] Phone Care Team Providers Care Splunk Architect Name Role Phone Hermila Calhoun MD, Wilber Martinez Primary Care Provider Encounter Details Date Type Department Care Team (Latest Contact Info) Description 04/15/2018 Anticoagulation Telephone Call [facility] Cardiology [address] [facility] Medical Office Building [address] [place] [address] Catarina Huerta MD [address] [facility] [address] [place] [address] Atrial fibrillation, unspecified type (CMS/HCC) Social History Tobacco Use Types Packs/Day Years Used Date Smoking Tobacco: Never Smokeless Tobacco: Never Comments Unknown Sex and Gender Information Value Date Recorded Sex Assigned at Not on file Legal Sex Female 4:20 AM RETAIL CLIENT SOLUTIONS ANALYST Gender Identity Not on file Sexual Orientation Not on file documented as of this encounter Miscellaneous Notes * Telephone Encounter - Gail Redman MA - 04/15/2018 2:22 PM RETAIL CLIENT SOLUTIONS ANALYST I spoke to the patient who verbalizes understanding of result and orders given. [place] CLIENT SOLUTIONS ANALYST * Telephone Encounter - Apolonia Sinha, ARMANI - 04/15/2018 9:41 AM CST NO change recheck 1 week thanks [place] CLIENT SOLUTIONS ANALYST documented in this encounter Plan of Treatment [...] (HCC) documented in this encounter Care Teams Splunk Architect Relationship Specialty Start Date End Date Wilber Cleaning Jr., MD [address] [place] [address] PCP - General 07/03/16 07/15/20 documented as of this encounter
--- OUTSIDE RECORDS SUMMARY | 2024-03-25 11:07 | XMS_ITS | Encounter Summary ---
Author Organization [facility] Address [address] [place] [address] Phone Care Team Providers Care Case Maker Name Role Phone Hermila Calhoun MD, Wilber Martinez Primary Care Provider Reason for Visit * Reason Onset Date Comments Anticoagulation 09/21/2017 overdue from 09/17 Encounter Details Date Type Department Care Team (Late st Contact Info) Description 09/21/2017 Telephone [facility] Cardiology [address] [facility] Medical Office Building [address] [place] [address] Catarina Huerta MD [address] [place] [address] [address] [place], [place] [id number] Anticoagulation (overdue from 09/17) Social History Tobacco Use Types Packs/Day Years Used Date Smoking Tobacco: Never Comments Unknown Sex and Gender Information Value Date Recorded Sex Assigned at Not on file Legal Sex Female 4:20 AM BOX TOE STITCHER Gender Identity Not on file Sexual Orientation Not on file documented as of this encounter Miscellaneous Notes * Telephone Encounter - Gail Redman MA - 09/21/2017 2:06 PM CDT CREATED SO FOR [facility] * Telephone Encounter - Patricia Harrington, MPH - 09/21/2017 1:13 PM CDT LATOYA NEEDS STANDING ORDER FOR INR. [facility] IN [place], [place] FAX [phone] PT WILL GO BACK TOMORROW TO HAVE [...] Diagnosis Comments PROTIME-INR Routine 03/17/2018 8:17 AM BOX TOE STITCHER Atrial fibrillation, unspecified type (CMS/HCC) PROTIME-INR Routine 03/05/2018 1:46 PM BOX TOE STITCHER Atrial fibrillation, unspecified type (CMS/HCC) PROTIME-INR Routine 02/09/2018 10:23 AM BOX TOE STITCHER Atrial fibrillation, unspecified type (CMS/HCC) PROTIME-INR Routine 01/22/2018 9:29 AM BOX TOE STITCHER Atrial fibrillation, unspecified type (CMS/HCC) PROTIME-INR Routine [...] Results * (ABNORMAL) Protime-INR (03/17/2018 8:17 AM BOX TOE STITCHER) INR 2.3(H) [facility] [place] Comment: Reference Range ? 0.9-1.1 Moderate-intensity Warfarin Therapy 2.0-3.0 Higher-intensity Warfarin Therapy ?? 3.0-4.0 PT 22.5(H) 9.0 - 11.5 sec [facility] [place] Comment: For more information on this test, go to: http://education.Roadmunk/faq/GYU474 Blood specimen (specimen) 03/17/2018 8:17 AM BOX TOE STITCHER 03/17/2018 8:17 AM BOX TOE STITCHER Narrative Resulting Agency Comment Performing Organization Information: ?Site ID: JAREN ?Name: [facility] ?Address: [address] [address] ?Director: Darryl Keys D.O., MPH us Catarina Huerta MD LAB BLOOD ORDERABLES Final R esult J[facility] * (ABNORMAL) Protime-INR (03/05/2018 1:46 PM BOX TOE STITCHER) INR 1.9(H) [facility] [place] Comment: Reference Range ? 0.9-1.1 Moderate-intensity Warfarin Therapy 2.0-3.0 Higher-intensity Warfarin Therapy ?? 3.0-4.0 PT 19.2(H) 9.0 - 11.5 sec [facility] [place] Comment: For more information on this test, go to: http://YYoga.Roadmunk/faq/AFS577 Blood specimen (specimen) 03/05/2018 1:46 PM BOX TOE STITCHER 03/05/2018 1:46 PM BOX TOE STITCHER Narrative Resulting Agency Comment Performing Organization Information: ?Site ID: [place] ?Name: [facility] ?Address: [address] [place] [address] [place] [address] ?Director: Darryl Keys D.O., MPH us Catarina Huerta MD LAB BLOOD ORDERABLES Final R esult [facility] [place] * (ABNORMAL) Protime-INR (02/09/2018 10:23 AM BOX TOE STITCHER) INR 2.0(H) [facility] [place] Comment: Reference Range ? 0.9-1.1 Moderate-intensity Warfarin Therapy 2.0-3.0 Higher-intensity Warfarin Therapy ?? 3.0-4.0 PT 20.0(H) 9.0 - 11.5 sec [facility] - [place] Comment: For more information on this test, go to: http://YYoga.Roadmunk/faq/HOG454 Blood specimen (specimen) 02/09/2018 10:23 AM BOX TOE STITCHER 02/09/2018 10:23 AM BOX TOE STITCHER Narrative [facility] - 02/10/2018 4:36 AM BOX TOE STITCHER FASTING:NO FASTING: NO Resulting Agency Comment Performing Organization Information: ?Site ID: JAREN ?Name: [facility] ?Address: [address] [address] ?Director: Darryl Keys D.O. MPH Catarina Heurta MD LAB BLOOD ORDERABLES Final R esult Performing Organization Address [facility] Co de Phone Number JAREN Guevara * (ABNORMAL) Protime-INR (01/22/2018 9:29 AM BOX TOE STITCHER) INR 2.4(H) [facility] [place] Comment: Reference Range ? 0.9-1.1 Moderate-intensity Warfarin Therapy 2.0-3.0 Higher-intensity Warfarin Therapy ?? 3.0-4.0 PT 23.2(H) 9.0 - 11.5 sec [facility] [place] Comment: For more information on this test, go to: http://education.Roadmunk/faq/HTM048 Blood specimen (specimen) 01/22/2018 9:29 AM BOX TOE STITCHER 01/22/2018 9:29 AM BOX TOE STITCHER Narrative [facility] - 01/23/2018 4:49 AM BOX TOE STITCHER FASTING:NO FASTING: NO Resulting Agency Comment Performing Organization Information: ?Site ID: JAREN ?Name: [facility] ?Address: [address] [address] ?Director: Darryl Keys D.O., MPH Catarina Huerta MD LAB BLOOD ORDERABLES Final R esult Performing Organization Address [facility] Co de Phone Number JAREN Guevara * (ABNORMAL) Protime-INR (01/13/2018 11:00 AM CDT) INR 1.9(H) [facility] [place] Comment: Reference Range ? 0.9-1.1 Moderate-intensity Warfarin Therapy 2.0-3.0 Higher-intensity Warfarin Therapy ?? 3.0-4.0 PT 18.6(H) 9.0 - 11.5 sec [facility] [place] Comment: For more information on this test, go to: http://YYoga.Roadmunk/faq/CJO939 Blood specimen (specimen) 01/13/2018 11:00 AM CDT 01/13/2018 11:01 AM CDT Narrative Resulting Agency Comment Performing Organization Information: ?Site ID: [place] ?Name: [facility] ?Address: [address] [place] [address] ?Director: Darryl Keys D.O., MPH Catarina Huerta [...] more information on this test, go to: http://YYoga.Roadmunk/faq/FAG812 Blood specimen (specimen) 01/05/2018 10:55 AM CDT 01/05/2018 10:55 AM CDT Narrative [facility] - 01/06/2018 6:04 AM CDT FASTING:NO FASTING: NO Resulting Agency Comment Performing Organization Information: ?Site ID: JAREN ?Name: [facility] ?Address: [address] [place] [address] ?Director: Darryl Keys D.O., MPH Catarina Huerta MD LAB BLOOD ORDERABLES Final R [facility] Performing Organization Address [facility] de Phone Number [facility] [place] * (ABNORMAL) Protime-INR (12/29/2017 11:19 AM CDT) INR 3.5(H) [facility] [place] Comment: Reference Range ? 0.9-1.1 Moderate-intensity Warfarin Therapy 2.0-3.0 Higher-intensity Warfarin Therapy ?? 3.0-4.0 PT 33.9(H) 9.0 - 11.5 sec [facility] [place] Comment: For more information on this test, go to: http://education.Roadmunk/faq/BJM924 Blood specimen (specimen) 12/29/2017 11:19 AM CDT 12/29/2017 11:20 AM CDT Narrative [facility] - 12/30/2017 5:07 AM CDT FASTING:NO FASTING: NO Resulting Agency Comment Performing Organization Information: ?Site ID: [place] ?Name: [facility] ?Address: [address] [place], [place] [address]JAR[place] Luis [address] ?Director: Darryl Keys D.O., MPH Catarina Huerta MD LAB BLOOD ORDERABLES Final R ult Performing Organization Address [facility] de Phone Number [facility] [place] * (ABNORMAL) Protime-INR (12/18/2017 11:20 AM CDT) INR 3.1(H) [facility] [place] Comment: Reference Range ? 0.9-1.1 Moderate-intensity Warfarin Therapy 2.0-3.0 Higher-intensity Warfarin Therapy ?? 3.0-4.0 PT 29.9(H) 9.0 - 11.5 sec [facility] [place] Comment: For more information on this test, go to: http://YYoga.Roadmunk/faq/ECN693 Blood specimen (specimen) 12/18/2017 11:20 AM CDT 12/18/2017 11:20 AM CDT Narrative [facility] - 12/19/2017 5:12 AM CDT FASTING:NO FASTING: NO Resulting Agency Comment Performing Organization Information: ?Site ID: [place] ?Name: [facility] ?Address: [facility] [address] [address] ?Director: Darryl Keys D.O. MPH Catarina Huerta [...] more information on this test, go to: http://YYoga.Roadmunk/faq/CCT411 Blood specimen (specimen) 11/17/2017 11:07 AM CDT 11/17/2017 11:07 AM CDT Narrative [facility] - 11/18/2017 4:24 AM CDT FASTING:NO FASTING: NO Resulting Agency Comment Performing Organization Information: ?Site ID: [place] ?Name: [facility] ?Address: [facility] [place] [address] ?Director: Darryl Keys D.O. MPH Catarina Huerta MD LAB BLOOD ORDERABLES Final R esult Performing Organization Address [facility] Co de Phone Number [facility] [place] * (ABNORMAL) Protime-INR (10/19/2017 1:11 PM CDT) INR 2.7(H) [facility] [place] Comment: Reference Range ? 0.9-1.1 Moderate-intensity Warfarin Therapy 2.0-3.0 Higher-intensity Warfarin Therapy ?? 3.0-4.0 PT 26.1(H) 9.0 - 11.5 sec [facility] [place] Comment: For more information on this test, go to: http://YYoga.Roadmunk/faq/DJC449 Blood specimen (specimen) 10/19/2017 1:11 PM CDT 10/19/2017 1:11 PM CDT Narrative [facility] - 10/20/2017 4:49 AM CDT FASTING:NO FASTING: NO Resulting Agency Comment Performing Organization Information: ?Site ID: [id number] ?Name: [facility] ?Address: [address] [place] [address] [place] [address] ?Director: Darryl Keys D.O., MPH us Catarina Huerta MD LAB BLOOD ORDERABLES Final R esult Performing Organization Address [facility] Co de Phone Number JAREN Guevara * (ABNORMAL) Protime-INR (09/22/2017 9:12 AM CDT) INR 2.1(H) [facility] [place] Comment: Reference Range ? 0.9-1.1 Moderate-intensity Warfarin Therapy 2.0-3.0 Higher-intensity Warfarin Therapy ?? 3.0-4.0 PT 22.2(H) 9.0 - 11.5 sec [facility] [place] Comment: For more information on this test, go to: http://education.Roadmunk/faq/NTN187 Blood specimen (specimen) 09/22/2017 9:12 AM CDT 09/22/2017 9:13 AM CDT Narrative [facility] - 09/23/2017 2:58 AM CDT FASTING:NO FASTING: NO Resulting Agency Comment Performing Organization Information: ?Site ID: JAREN ?Name: [facility] ?Address: [address] [place] [address] ?Director: Darryl Keys D.O., MPH us Catarina Huerta MD LAB BLOOD ORDERABLES Final R esult [facility] [place] documented in this encounter Visit Diagnoses Diagnosis Atrial fibrillation, unspecified type (HCC)- Primary documented in this encounter Care Teams Case Maker Relationship Specialty Start Date End Date Wilber Cleaning Jr., MD [address] [place] [address] PCP - General 07/03/16 07/15/20 documented as of this encounter
--- OUTSIDE RECORDS SUMMARY | 2024-03-25 11:07 | XMS_ITS | Encounter Summary ---
Author Organization [facility] Address [address] [place] [address] Phone Care Team Providers Care Field Research Associate Name Role Phone Hermila Calhoun MD, Wilber Martinez Primary Care Provider Encounter Details Date Type Department Care Team (Latest Contact Info) Description 12/30/2017 Anticoagulation Telephone Call [facility] Cardiology [address] [facility] Medical Office Building [address] [place] [address] Catarina Huerta MD [facility] [address] [place] [address] Atrial fibrillation, unspecified type (CMS/HCC) Social History Tobacco Use Types Packs/Day Years Used Date Smoking Tobacco: Never Smokeless Tobacco: Never Comments Unknown Sex and Gender Information Value Date Recorded Sex Assigned at Not on file 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
--- OUTSIDE RECORDS SUMMARY | 2024-03-25 11:07 | XMS_ITS | Encounter Summary ---
Author Organization [facility] Address [address] [place] [address] Phone Care Team Providers Care Lockstitch Tunnel Elastic Operator Name Role Phone Hermila Calhoun MD, Wilber Martinez Primary Care Provider Reason for Visit * Reason Onset Date Comments Labs Only 10/19/2017 due for lipids a 2017 Encounter Details Date Type Department Care Team (Late st Contact Info) Description 10/19/2017 Telephone [facility] Cardiology [facility] Medical Office Building [address] [place] [address] Gail Redman, RMA Labs Only (due for lipids oct 2017) Social History Tobacco Use Types Packs/Day Years Used Date Smoking Tobacco: Never Comments Unknown Sex and Gender Information Value Date Recorded Sex Assigned at Not on file 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 documented in this encounter Plan of Treatment Scheduled Orders Name Type Priority Associated Diagnoses Orde r Schedule Lipid panel Lab Routine Dyslipidemia Expected: 10/19/2017, Expires: 10/19/2018 documented as of this encounter Visit Diagnoses Diagnosis Dyslipidemia- Primary Other and unspecified hyperlipidemia documented in this encounter Care Teams Lockstitch Tunnel Elastic Operator Relationship Specialty Start Date End Date Wilber Cleaning Jr., MD [address] [place] [address] PCP - General 07/03/16 07/15/20 documented as of this encounter
--- OUTSIDE RECORDS SUMMARY | 2024-03-25 11:07 | XMS_ITS | Encounter Summary ---
Author Organization [facility] Address [address] [place] [address] Phone Care Team Providers Care Follow Up Rep Name Role Phone Hermila Calhoun MD, Wilber Martinez Primary Care Provider Encounter Details Date Type Department Care Team (Latest Contact Info) Description 11/12/2018 Anticoagulation Telephone Call [facility] Cardiology [address] [facility] Medical Office Building [address] [place] [address] Catarina Huerta MD [address] [facility] [address] [place] [address] Persistent atrial fibrillation (CMS/HCC) Social History Tobacco Use Types Packs/Day Years Used Date Smoking Tobacco: Never Smokeless Tobacco: Never Comments Unknown Sex and Gender Information Value Date Recorded Sex Assigned at Not on file 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
--- OUTSIDE RECORDS SUMMARY | 2024-03-25 11:07 | XMS_ITS | Encounter Summary ---
Author Organization [facility] Address [address] [place] [address] Phone Care Team Providers Care Tire Adjuster Name Role Phone Hermila Calhoun MD, Wilber Martinez Primary Care Provider Encounter Details Date Type Department Care Team (Latest Contact Info) Description 01/14/2018 Anticoagulation Telephone Call [facility] [address] [facility] Medical Office Building [address] [place] [address] Catarina Huerta MD [address] [facility] [address] [place] [address] Atrial fibrillation, unspecified type (CMS/HCC) Social History Tobacco Use Types Packs/Day Years Used Date Smoking Tobacco: Never Smokeless Tobacco: Never Comments Unknown Sex and Gender Information Value Date Recorded Sex Assigned at Not on file Legal Sex Female 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
--- OUTSIDE RECORDS SUMMARY | 2024-03-25 11:07 | XMS_ITS | Encounter Summary ---
Author Organization [facility] Address [address] [place] [address] Phone Care Team Providers Care Paragliding Instructor Name Role Phone Hermila Calhoun MD, India Martinez Primary Care Provider Reason for Referral * (Routine) - Closed Specialty Diagnoses / Procedures Referred By Contac t Referred To Contact Diagnoses Persistent atrial fibrillation (HCC) Procedures ECG 12 lead Catarina Huerta MD Phone: tel: fax: Heart [facility] Referral ID Status Reason Start Date Expiration Date Visits Re quested Visits Authorized [id number] Closed 09/07/2018 03/18/2020 1 1 Reason for Visit * Cardiology (Routine) - Closed Specialty Diagnoses / Procedures Referred By Contac t Referred To Contact Cardiology Diagnoses BP Procedures RETURN India Cleaning Jr., MD Phone: tel: fax: Catarina Huerta MD [address] [place] [address] Phone: tel: fax: Referral ID Status Reason Start Date Expiration Date Visits Re quested Visits Authorized [id number] Closed 08/17/2018 12/13/2018 5 5 Encounter Details Date Type Department Care Team (Late st Contact Info) Description 09/07/2018 1:30 PM CDT Office Visit [facility] [address] [facility] Medical Office Building [address] [place] [address] Catarina Huerta MD [address] [facility] [address] [place] [address] Persistent atrial fibrillation (CMS/HCC) (Primary Dx); Essential hypertension Social History Tobacco Use Types Packs/Day Years Used Date Smoking Tobacco: Never Smokeless Tobacco: Never Comments Unknown Sex and Gender Information Value Date Recorded Sex Assigned at Not on file 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 director [facility] cc: INDIA CLEANING MD / / documented [...] documented as of this encounter Care Teams Paragliding Instructor Relationship Specialty Start Date End Date India Cleaning Jr., MD [address] [place] [address] PCP - General 07/03/16 07/15/20 documented as of this encounter
--- OUTSIDE RECORDS SUMMARY | 2024-03-25 11:07 | XMS_ITS | Encounter Summary ---
Author Organization [facility] Address [address] [place] [address] Phone Care Team Providers Care Manager Environmental Affairs Name Role Phone Hermila Calhoun MD, Wilber Martinez Primary Care Provider Encounter Details Date Type Department Care Team (Late st Contact Info) Description 08/04/2018 Telephone [facility] Cardiology [address] [facility] Medical Office Building [address] [place] [address] Catarina Huerta MD [address] [address] Social History Tobacco Use Types Packs/Day Years Used Date Smoking Tobacco: Never Smokeless Tobacco: Never Comments Unknown Sex and Gender Information Value Date Recorded Sex Assigned at Not on file 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 Thanks * Telephone Encounter - Catairna Huerta MD - 08/06/2018 8:27 AM CDT [...] filedocumented in this encounter Care Teams Manager Environmental Affairs Relationship Specialty Start Date End Date Wilber Cleaning Jr., MD [address] [place] [id number] PCP - General 07/03/16 07/15/20 documented as of this encounter
--- OUTSIDE RECORDS SUMMARY | 2024-03-25 11:07 | XMS_ITS | Encounter Summary ---
Author Organization [facility] Address [address] [place] [address] Phone Care Team Providers Care Director Transition Name Role Phone Hermila Calhoun MD, Wilber Martinez Primary Care Provider Encounter Details Date Type Department Care Team (Latest Contact Info) Description 03/10/2018 Anticoagulation Telephone Call [facility] Card[facility] [address] [facility] Medical Office Building [address] [place] [address] Catarina Huerta MD [address] [facility] [address] [place] [address] Atrial fibrillation, unspecified type (CMS/HCC) Social History Tobacco Use Types Packs/Day Years Used Date Smoking Tobacco: Never Smokeless Tobacco: Never Comments Unknown Sex and Gender Information Value Date Recorded Sex Assigned at Not on file Legal Sex Female 4:20 AM AGRICULTURAL TECHNICAL OFFICER Gender Identity Not on file Sexual Orientation Not on file documented as of this encounter Miscellaneous Notes * Telephone Encounter - Margarita Méndez RN - 03/10/2018 2:15 PM AGRICULTURAL TECHNICAL OFFICER Change to 3 mg MTh, 2 mg x5, recheck 1 week. Pt denies missed doses, change in diet. She reports she has been using less Tylenol. jf CULTURAL TECHNICAL OFFICER documented in this encounter Plan of Treatment Not on file documented as of this encounter Visit Diagnoses Diagnosis Atrial fibrillation, unspecified type (HCC) documented in this encounter Care Teams Director Transition Relationship Specialty Start Date End Date Wilber Cleaning Jr., MD [address] [place] [address] PCP - General 07/03/16 07/15/20 documented as of this encounter
--- OUTSIDE RECORDS SUMMARY | 2024-03-25 11:07 | XMS_ITS | Encounter Summary ---
Author Organization [facility] Address [address] [place] [address] Phone Care Team Providers Care Clinical Nurse Name Role Phone Hermila Calhoun MD, Wilber Martinez Primary Care Provider Encounter Details Date Type Department Care Team (Latest Contact Info) Description 11/04/2018 Anticoagulation Telephone Call [facility] Cardiology [address] [facility] Medical Office Building [address] [place] [address] Catarina Huerta MD [address] [facility] [address] [place] [address] Persistent atrial fibrillation (CMS/HCC) Social History Tobacco Use Types Packs/Day Years Used Date Smoking Tobacco: Never Smokeless Tobacco: Never Comments Unknown Sex and Gender Information Value Date Recorded Sex Assigned at Not on file 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
--- OUTSIDE RECORDS SUMMARY | 2024-03-25 11:07 | XMS_ITS | Encounter Summary ---
Author Organization [facility] Address [address] [place] [address] Phone Care Team Providers Care Outreach Consultant Name Role Phone Hermila Calhoun MD, Wilber Martinez Primary Care Provider Encounter Details Date Type Department Care Team (Latest Contact Info) Description 02/09/2019 Anticoagulation Telephone Call [facility] Cardiology [address] [facility] Advanced Medicine 8th [place] [address] [place] [address] Cathleen Walker MD [address] 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
--- OUTSIDE RECORDS SUMMARY | 2024-03-25 11:07 | XMS_ITS | Encounter Summary ---
Author Organization [facility] Address [address] [place] [address] Phone Care Team Providers Care Tripoler Name Role Phone Hermila Calhoun MD, Wilber Martinez Primary Care Provider Encounter Details Date Type Department Care Team (Late st Contact Info) Description 09/22/2017 Telephone [facility] Cardiology [address] [facility] Advanced Medicine 8th [place] [address] [place] [address] Catarina Huerta MD [address] [place], [place] [id number] Social History Tobacco Use Types Packs/Day Years Used Date Smoking Tobacco: Never Comments Unknown Sex and Gender Information Value Date Recorded Sex Assigned at Not on file Legal Sex Female 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
--- OUTSIDE RECORDS SUMMARY | 2024-03-25 11:07 | XMS_ITS | Encounter Summary ---
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 Aislinn Goldsmith, INFORMATION COORDINATOR 06/09/2019 06/09/2019 06/09/2019 4:20 PM C DT documented as of this encounter Care Teams Black Ash Worker Relationship Specialty Start Date End Date Wilber Cleaning Jr., MD [address] [place] [address] PCP - General 07/03/16 07/15/20 Ryann Galdamez PA [address] [facility] [place] [address] PCP - General Director Of Resource Development 07/16/20 04/01/21 documented as of this encounter
--- OUTSIDE RECORDS SUMMARY | 2024-03-25 11:07 | XMS_ITS | Encounter Summary ---
Author Organization [facility] Address [address] [place] [address] Phone Care Team Providers Care Planer Operator Name Role Phone Hermila Calhoun MD, Wilber Martinez Primary Care Provider Encounter Details Date Type Department Care Team (Latest Contact Info) Description 03/31/2018 Anticoagulation Telephone Call [facility] Cardiology [address] [facility] Medical Office Building [address] [place] [address] Catarina Huerta MD [address] [facility] [address] [place] [address] Atrial fibrillation, unspecified type (CMS/HCC) Social History Tobacco Use Types Packs/Day Years Used Date Smoking Tobacco: Never Smokeless Tobacco: Never Comments Unknown Sex and Gender Information Value Date Recorded Sex Assigned at Not on file Legal Sex Female 4:20 AM GEOPHYSICAL OPERATOR Gender Identity Not on file Sexual Orientation Not on file documented as of this encounter Miscellaneous Notes * Telephone Encounter - Gail Redman MA - 03/31/2018 11:44 AM GEOPHYSICAL OPERATOR I left a message for the patient with result and orders. HYSICAL OPERATOR * Telephone Encounter - Apolonia Sinha RN - 03/31/2018 10:36 AM CST 3mg Mon, then 2mg other days recheck 1 week thanks HYSICAL OPERATOR * Telephone Encounter - Gail Redman MA - 03/31/2018 10:24 AM GEOPHYSICAL OPERATOR She reports she fell 1 week ago and compression fracture of the vertebrae in her lower back. Takingdaily tylenol and a topical pain cream (she does not have the name but pharmacist advised her to watch INR). She will be travelling to [place] in 3 days and has a standing order in hand if she needs to go to a lab. HYSICAL OPERATOR HYSICAL OPERATOR documented in this encounter Plan of Treatment Not on file documented as of this encounter Visit Diagnoses Diagnosis Atrial fibrillation, unspecified type (HCC) documented in this encounter Care Teams Planer Operator Relationship Specialty Start Date End Date Wilber Cleaning Jr., MD [address] [place] [address] PCP - General 07/03/16 07/15/20 documented as of this encounter
--- OUTSIDE RECORDS SUMMARY | 2024-03-25 11:07 | XMS_ITS | Encounter Summary ---
Author Organization [facility] Address [address] [place] [address] Phone Care Team Providers Care Tamale Machine Feeder Name Role Phone Hermila Calhoun MD, Wilber Martinez Primary Care Provider Encounter Details Date Type Department Care Team (Latest Contact Info) Description 11/30/2018 Anticoagulation Telephone Call [facility] Cardiology [address] [facility] Medical Office Building [address] [place] [address] Catarina Huerta MD [address] [facility] [address] [place] [address] Persistent atrial fibrillation (CMS/HCC) Social History Tobacco Use Types Packs/Day Years Used Date Smoking Tobacco: Never Smokeless Tobacco: Never Comments Unknown Sex and Gender Information Value Date Recorded Sex Assigned at Not on file 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
--- OUTSIDE RECORDS SUMMARY | 2024-03-25 11:07 | XMS_ITS | Encounter Summary ---
Author Organization [facility] Address [address] [place] [address] Phone Care Team Providers Care Mine Safety Engineer Name Role Phone Hermila Calhoun MD, Wilber Martinez Primary Care Provider Encounter Details Date Type Department Care Team (Latest Contact Info) Description 11/18/2017 Anticoagulation Telephone Call [facility] Cardiology [address] [facility] Medical Office Building [address] [place] [address] Catarina Huerta MD [address] [facility] [address] [place] [address] Atrial fibrillation, unspecified type (CMS/HCC) Social History Tobacco Use Types Packs/Day Years Used Date Smoking Tobacco: Never Comments Unknown Sex and Gender Information Value Date Recorded Sex Assigned at Not on file 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
--- OUTSIDE RECORDS SUMMARY | 2024-03-25 11:07 | XMS_ITS | Encounter Summary ---
Author Organization [facility] Address [address] [place] [address] Phone Care Team Providers Care Tenant Relations Coordinator Name Role Phone Hermila Calhoun MD, Wilber Martinez Primary Care Provider Encounter Details Date Type Department Care Team (Latest Contact Info) Description 01/25/2018 Anticoagulation Telephone Call [facility] Cardiology [address] [facility] Medical Office Building [address] [place] [address] Catarina Huerta MD [address] [facility] [address] [place] [address] Atrial fibrillation, unspecified type (CMS/HCC) Social History Tobacco Use Types Packs/Day Years Used Date Smoking Tobacco: Never Smokeless Tobacco: Never Comments Unknown Sex and Gender Information Value Date Recorded Sex Assigned at Not on file Legal Sex Female 4:20 AM BLACK OXIDE OPERATOR Gender Identity Not on file Sexual Orientation Not on file documented as of this encounter Miscellaneous Notes * Telephone Encounter - Gail Redman MA - 01/25/2018 10:37 AM BLACK OXIDE OPERATOR I spoke to the patient who verbalizes understanding of result and orders given. She had been taking 2mg QD K OXIDE OPERATOR * Telephone Encounter - Apolonia Sinha RN - 01/25/2018 8:07 AM CST No change rechech 2 weeks thanks K OXIDE OPERATOR documented in this encounter Plan of [...] (HCC) documented in this encounter Care Teams Tenant Relations Coordinator Relationship Specialty Start Date End Date Wilber Cleaning Jr., MD [address] [place] [address] PCP - General 07/03/16 07/15/20 documented as of this encounter
--- OUTSIDE RECORDS SUMMARY | 2024-03-25 11:07 | XMS_ITS | Encounter Summary ---
Author Organization [facility] Address [address] [facility] [address] [place] [address] Care Team Providers Care Computer Technical Support Specialist Name Role Phone Hermila Calhoun MD, Wilber Martinez Primary Care Provider Ryann Galdamez Primary Care Provider +[phone]- [phone] Encounter Details Date Type Department Care Team (Late st Contact Info) Description 12/21/[address] [facility] Health Information Management [address] [place] [address] Scanning, Provider Social History Tobacco Use Types [...] on file Legal Sex Female 4:20 AM EARLY LEARNING TEACHER Gender Identity Not on file Sexual [...] pt afebrile, without URI signs/symptoms. Aislinn Goldsmith, DIGITAL WATCH ASSEMBLER 06/09/2019 06/09/2019 06/09/2019 4:20 PM C DT documented as of this encounter Care Teams Computer Technical Support Specialist Relationship Specialty Start Date End Date Wilber Cleaning Jr., MD [address] [place] [address] PCP - General 07/03/16 07/15/20 Ryann Galdamez PA [address] [place] [address] PCP - General State Game Protector 07/16/20 04/01/21 documented as of this encounter
--- OUTSIDE RECORDS SUMMARY | 2024-03-25 11:07 | XMS_ITS | Encounter Summary ---
Author Organization [facility] Address [address] [place] [address] Phone Care Team Providers Care Bad Credit Collector Name Role Phone Hermila Calhoun MD, Wilber Martinez Primary Care Provider Encounter Details Date Type Department Care Team (Latest Contact Info) Description 08/04/[address] [facility] Cardiology [address] [facility] Medical Office Building [address] [place] [address] Catarina Huerta MD [address] [facility] [address] [place] [address] Atrial fibrillation, unspecified type (CMS/HCC) Social History Tobacco Use Types Packs/Day Years Used Date Smoking Tobacco: Never Smokeless Tobacco: Never Comments Unknown Sex and Gender Information Value Date Recorded Sex Assigned at Not on file Legal Sex Female 4:20 AM FUNERAL ARRANGEMENT DIRECTOR Gender Identity Not on file Sexual [...] (HCC) documented in this encounter Care Teams Bad Credit Collector Relationship Specialty Start Date End Date Wilber Cleaning Jr., MD [address] [place] [address] PCP - General 07/03/16 07/15/20 documented as of this encounter
--- OUTSIDE RECORDS SUMMARY | 2024-03-25 11:07 | XMS_ITS | Encounter Summary ---
Author Organization [facility] Address [address] [place] [address] Phone Care Team Providers Care Chief Creative Officer Name Role Phone Hermila Calhoun MD, Wilber Martinez Primary Care Provider Encounter Details Date Type Department Care Team (Late st Contact Info) Description 08/19/2018 Telephone [facility] Cardiology [address] [facility] Advanced Medicine 8th [place] [address] [place] [address] Catarina Huerta MD [address] [place] [address] Social History Tobacco Use Types Packs/Day Years Used Date Smoking Tobacco: Never Smokeless Tobacco: Never Comments Unknown Sex and Gender Information Value Date Recorded Sex Assigned at Not on file Legal Sex Female 4: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
--- OUTSIDE RECORDS SUMMARY | 2024-03-25 11:07 | XMS_ITS | Encounter Summary ---
Author Organization [facility] Healthcare Address [address] [place] [address] Care Team Providers Care Perfect Bind Machine Operator Name Role Phone Hermila Calhoun MD, Wilber Martinez Primary Care Provider Encounter Details Date Type Department Care Team (Late st Contact Info) Description 08/23/2018 2:30 PM CDT Lab [facility] [address] [place] [address] Catarina Huerta MD [address] [facility] [address] [place] [address] Paroxysmal atrial fibrillation (CMS/HCC) Discharge Disposition: Discharge to home or self care Social History Tobacco Use Types Packs/Day Years Used Date Smoking Tobacco: Never Smokeless Tobacco: Never Comments Unknown Sex and Gender Information Value Date Recorded Sex Assigned at Not on file Legal Sex Female 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 Estimated glomerular filtration [...] LAB BLOOD ORDERABLES Final R esult [facility] [id number] [facility]. [place] [address] * (ABNORMAL) Basic metabolic panel [...] 2017. Calcium 9.7 8.5 - 10.3 mg/dL [facility] Blood specimen (specimen) 08/23/2018 3:05 PM CDT 08/23/2018 3:53 PM CDT N[facility]ative [facility] - 08/23/2018 5:05 PM CDT Catarina Huerta MD LAB BLOOD ORDERABLES Final R esult [facility] [address] [facility] [place] [address] documented in this encounter Visit Diagnoses Diagnosis Paroxysmal atrial fibrillation (CMS/HCC) (HCC) Atrial fibrillation documented in this encounter Care Teams Perfect Bind Machine Operator Relationship Specialty Start Date End Date Wilber Cleaning Jr., MD [address] [place] [address] PCP - General 07/03/16 07/15/20 documented as of this encounter
--- OUTSIDE RECORDS SUMMARY | 2024-03-25 11:07 | XMS_ITS | Encounter Summary ---
Author Organization [facility] Address [address] [place] [address] Phone Care Team Providers Care Floor Representative Name Role Phone Hermila Calhoun MD, [...] on file Legal Sex Female 4:20 AM TRAMPOLINE TEAM COACH Gender Identity Not on file Sexual Orientation Not on file documented as of this encounter Plan of Treatment Not on file documented as of this encounter Procedures Procedure Name Priority Date/Time Associated Diagnosis Comments SCAN - LABS 04/15/2018 7:12 AM TRAMPOLINE TEAM COACH documented in this encounter Results * SCAN - LABS (04/15/2018 7:12 AM TRAMPOLINE TEAM COACH) Apolonia Sinha RN Final Result documented in this encounter Visit Diagnoses Not on filedocumented in this encounter Care Teams Floor Representative Relationship Specialty Start Date End Date Wilber Cleaning Jr., MD [address] [place] [address] PCP - General 07/03/16 07/15/20 documented as of this encounter
--- OUTSIDE RECORDS SUMMARY | 2024-03-25 11:07 | XMS_ITS | Encounter Summary ---
Author Organization [facility] Address [address] [place] [address] Phone Care Team Providers Care Director [employer] Name Role Phone Hermila Calhoun MD, Wilber Martinez Primary Care Provider Encounter Details Date Type Department Care Team (Latest Contact Info) Description 04/06/2018 Anticoagulation Telephone Call [facility] Cardiology [address] [facility] [address] Office [address] [place] [address] Catarina Huerta MD [address] [facility] [address] [place] [address] Atrial fibrillation, unspecified type (CMS/HCC) Social History Tobacco Use Types Packs/Day Years Used Date Smoking Tobacco: Never Smokeless Tobacco: Never Comments Unknown Sex and Gender Information Value Date Recorded Sex Assigned at Not on file Legal Sex Female 4:20 AM 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 LEADER GLUING * Telephone Encounter - pAolonia Sinha, ARMANI - 04/06/2018 8:50 AM CST 1mg Tu robin 2mg other days recheck 1 week thanks LEADER GLUING documented in this encounter Plan of Treatment [...] documented in this encounter Care Teams Director [employer] Relationship Specialty Start Date End Date Wilber Cleaning Jr., MD [address] [place] [address] PCP - General 07/03/16 07/15/20 documented as of this encounter
--- OUTSIDE RECORDS SUMMARY | 2024-03-25 11:07 | XMS_ITS | Encounter Summary ---
Author Organization [facility] Address [address] [place] [address] Phone Care Team Providers Care Precision Mechanical Instrument Maker Name Role Phone Hermila Calhoun MD, Wilber Martinez Primary Care Provider Encounter Details Date Type Department Care Team (Late st Contact Info) Description 01/06/2019 Telephone [facility] Cardiology [address] [facility] Advanced Medicine 8th [place] [address] [place] [address] Cathleen Walker MD [address] [facility] [address] [place] [address] Social History Tobacco Use Types Packs/Day Years Used Date Smoking Tobacco: Never Smokeless Tobacco: Never Comments Unknown Sex and Gender Information Value Date Recorded Sex Assigned at Not on file 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 Called PCP Dr. Cleaning [phone] and had to leave a message. * [...] on filedocumented in this encounter Care Teams Precision Mechanical Instrument Maker Relationship Specialty Start Date End Date Wilber Cleaning Jr., MD [address] [place] [address] PCP - General 07/03/16 07/15/20 documented as of this encounter
--- OUTSIDE RECORDS SUMMARY | 2024-03-25 11:07 | XMS_ITS | Encounter Summary ---
Author Organization [facility] Address [address] [place] [address] Phone Care Team Providers Care Zigzagger Name Role Phone Hermila Calhoun MD, Wilber Martinez Primary Care Provider Encounter Details Date Type Department Care Team (Latest Contact Info) Description 09/06/2018 Anticoagulation Telephone Call [facility] Cardiology [address] [facility] Medical Office Building [address] [place] [address] Catarina Huerta MD [address] [facility] [address] [place] [address] Atrial fibrillation, unspecified type (CMS/HCC) Social History Tobacco Use Types Packs/Day Years Used Date Smoking Tobacco: Never Smokeless Tobacco: Never Comments Unknown Sex and Gender Information Value Date Recorded Sex Assigned at Not on file Legal Sex Female 4:20 AM IMPOSER Gender Identity Not on file Sexual Orientation [...] (HCC) documented in this encounter Care Teams Zigzagger Relationship Specialty Start Date End Date Wilber Cleaning Jr., MD [address] [place] [address] PCP - General 07/03/16 07/15/20 documented as of this encounter
--- OUTSIDE RECORDS SUMMARY | 2024-03-25 11:07 | XMS_ITS | Encounter Summary ---
Author Organization [facility] Address [address] [place] [address] Phone Care Team Providers Care Shot Core Drill Operator Helper Name Role Phone Hermila Calhoun MD, Wilber Martinez Primary Care Provider Reason for Visit * Reason Onset Date Comments Anticoagulation 01/11/2019 Encounter Details Date Type Department Care Team (Latest Contact Info) Description 01/11/2019 Anticoagulation Telephone Call [facility] Cardiology [address] [facility] Advanced Medicine 8th [place] [address] [place] [address] Cathleen Walker MD [address] [facility] [address] [place], [place] [id number] Atrial fibrillation, unspecified type (CMS/HCC) Social History Tobacco Use Types Packs/Day Years Used Date Smoking Tobacco: Never Smokeless Tobacco: Never Comments Unknown Sex and Gender Information Value Date Recorded Sex Assigned at Not on file Legal Sex Female 4:20 AM CASING MIXER Gender Identity Not on file Sexual Orientation Not on file documented as of this encounter Miscellaneous Notes * Telephone Encounter - Gail Redman, [facility] - 01/11/2019 12:56 PM CDT I left [...] (HCC) documented in this encounter Care Teams Shot Core Drill Operator Helper Relationship Specialty Start Date End Date Wilber Cleaning Jr., MD [address] [place] [address] PCP - General 07/03/16 07/15/20 documented as of this encounter
--- OUTSIDE RECORDS SUMMARY | 2024-03-25 11:07 | XMS_ITS | Encounter Summary ---
Author Organization [facility] Address [address] [place] [address] Phone Care Team Providers Care Manager Telecom Name Role Phone Hermila Calhoun MD, Wilber [...] on file Legal Sex Female 4:20 AM CLOTH FINISHING RANGE TENDER Gender Identity Not on file Sexual [...] filedocumented in this encounter Care Teams Manager Telecom Relationship Specialty Start Date End Date Wilber Cleaning Jr., MD [address] [place] [address] PCP - General 07/03/16 07/15/20 documented as of this encounter
--- OUTSIDE RECORDS SUMMARY | 2024-03-25 11:07 | XMS_ITS | Encounter Summary ---
Author Organization [facility] Address [address] [place] [address] Phone Care Team Providers Care Auto Rental Supervisor Name Role Phone Hermila Calhoun MD, Wilber Martinez Primary Care Provider Encounter Details Date Type Department Care Team (Latest Contact Info) Description 12/21/2018 Anticoagulation Telephone Call [facility] Cardiology [address] [facility] Advanced Medicine 8th [place] [address] [place] [address] Cathleen Walker MD [address] [facility] [address] [place], [place] [id number] Atrial fibrillation, unspecified type (CMS/HCC) Social History Tobacco Use Types Packs/Day Years Used Date Smoking Tobacco: Never Smokeless Tobacco: Never Comments Unknown Sex and Gender Information Value Date Recorded Sex Assigned at Not on file Legal Sex Female 4:20 AM EQUIPMENT STERILIZER Gender Identity Not on file Sexual Orientation [...] (HCC) documented in this encounter Care Teams Auto Rental Supervisor Relationship Specialty Start Date End Date Wilber Cleaning Jr., MD [address] [place] [address] PCP - General 07/03/16 07/15/20 documented as of this encounter
--- OUTSIDE RECORDS SUMMARY | 2024-03-25 11:07 | XMS_ITS | Encounter Summary ---
Author Organization [facility] Address [address] [facility] [address] [place] [address] Care Team Providers Care Sanitation Tank Washer Name Role Phone Hermila Calhoun MD, Wilber Martinez Primary Care Provider Ryann Galdamez Primary Care Provider [phone]- [phone] Encounter Details Date Type Department Care Team (Late st Contact Info) Description 02/12/2018 Orders Only [facility] Health Information Management [address] [place] [address] Scanning, Provider Social History Tobacco Use Types [...] on file Legal Sex Female 4:20 AM REGULATORY SERVICES CONSULTANT Gender Identity Not on file [...] pt afebrile, without URI signs/symptoms. Aislinn Goldsmith, CUSTOMS EXAMINER 06/09/2019 06/09/2019 06/09/2019 4:20 PM C DT documented as of this encounter Care Teams Sanitation Tank Washer Relationship Specialty Start Date End Date Wilber Cleaning Jr., MD [address] [place] [address] PCP - General 07/03/16 07/15/20 Ryann Galdamez PA [address] [place] [address] PCP - General Housing Management Officer 07/16/20 04/01/21 documented as of this encounter
--- OUTSIDE RECORDS SUMMARY | 2024-03-25 11:07 | XMS_ITS | Encounter Summary ---
Author Organization [facility] Address [address] [place] [address] Phone Care Team Providers Care Pie Topper Name Role Phone Hermila Calhoun MD, Wilber Martinez Primary Care Provider Encounter Details Date Type Department Care Team (Latest Contact Info) Description 06/01/2018 Anticoagulation Telephone Call [facility] Cardiology [address] [facility] Medical Office Building [address] [place] [address] Catarina Huerta MD [address] [facility] [address] [place] [address] Atrial fibrillation, unspecified type (CMS/HCC) Social History Tobacco Use Types Packs/Day Years Used Date Smoking Tobacco: Never Smokeless Tobacco: Never Comments Unknown Sex and Gender Information Value Date Recorded Sex Assigned at Not on file Legal Sex Female 4:20 AM ELECTRICAL ENGINEERING DRAFTING OFFICER Gender Identity Not on file Sexual [...] (HCC) documented in this encounter Care Teams Pie Topper Relationship Specialty Start Date End Date Wilber Cleaning Jr., MD [address] [place] [address] PCP - General 07/03/16 07/15/20 documented as of this encounter
--- OUTSIDE RECORDS SUMMARY | 2024-03-25 11:07 | XMS_ITS | Encounter Summary ---
Author Organization [facility] Address [address] [place] [address] Phone Care Team Providers Care Story Teller Name Role Phone Hermila Calhoun MD, Wilber Martinez Primary Care Provider Encounter Details Date Type Department Care Team (Latest Contact Info) Description 11/18/[address] [facility] Cardiology [address] [facility] Medical Office Building [address] [place] [address] Catarina Huerta MD [address] [facility] [address] [place] [address] Persistent atrial fibrillation (CMS/HCC) Social History Tobacco Use Types Packs/Day Years Used Date Smoking Tobacco: Never Smokeless Tobacco: Never Comments Unknown Sex and Gender Information Value Date Recorded Sex Assigned at Not on file Legal Sex Female 4:20 AM INSTRUCTIONAL MATERIALS DIRECTOR Gender Identity Not on file Sexual [...] fibrillation documented in this encounter Care Teams Story Teller Relationship Specialty Start Date End Date Wilber Cleaning Jr., MD [address] [place] [address] PCP - General 07/03/16 07/15/20 documented as of this encounter
--- OUTSIDE RECORDS SUMMARY | 2024-03-25 11:07 | XMS_ITS | Encounter Summary ---
Author Organization [facility] Address [address] [facility] [address] [place] [address] Care Team Providers Care Home Office Claims Examiner Name Role Phone Hermila Calhoun MD, Wilber Martinez Primary Care Provider Ryann Galdamez Primary Care Provider [phone]- [phone] Encounter Details Date Type Department Care Team (Late st Contact Info) Description 03/17/2018 Orders Only [facility] Health Information Management [address] [place] [address] Scanning, Provider Social History Tobacco Use Types [...] file Legal Sex Female 4:20 AM INJECTION 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 pt afebrile, without URI signs/symptoms. Aislinn Goldsmith, FLOORWORKER LASTING 06/09/2019 06/09/2019 06/09/2019 4:20 PM C DT documented as of this encounter Care Teams Home Office Claims Examiner Relationship Specialty Start Date End Date Wilber Cleaning Jr., MD [address] [place] [address] PCP - General 07/03/16 07/15/20 Ryann Galdamez PA [address] [place] [address] PCP - General Wool Broker 07/16/20 04/01/21 documented as of this encounter
--- OUTSIDE RECORDS SUMMARY | 2024-03-25 11:07 | XMS_ITS | Encounter Summary ---
Author Organization [facility] Address [address] [place] [address] Phone Care Team Providers Care Light Rail Operator Name Role Phone Hermila Calhoun MD, [...] on file Legal Sex Female 4:20 AM PROFILE TRIMMER Gender Identity Not on file Sexual [...] on filedocumented in this encounter Care Teams Light Rail Operator Relationship Specialty Start Date End Date Wilber Cleaning Jr., MD [address] [place] [address] PCP - General 07/03/16 07/15/20 documented as of this encounter
--- OUTSIDE RECORDS SUMMARY | 2024-03-25 11:07 | XMS_ITS | Encounter Summary ---
Author Organization [facility] Address [address] [place] [address] Phone Care Team Providers Care Kersey Department Supervisor Name Role Phone Hermila Calhoun MD, Wilber Martinez Primary Care Provider Encounter Details Date Type Department Care Team (Latest Contact Info) Description 01/06/2018 Anticoagulation Telephone Call [facility] Cardiology [address] [facility] Medical Office Building [address] [place] [address] Catarina Huerta MD [address] [facility] [address] [place] [address] Atrial fibrillation, unspecified type (CMS/HCC) Social History Tobacco Use Types Packs/Day Years Used Date Smoking Tobacco: Never Smokeless Tobacco: Never Comments Unknown Sex and Gender Information Value Date Recorded Sex Assigned at Not on file Legal Sex Female 4:20 AM DOLL SURGEON Gender Identity Not on file Sexual Orientation [...] (HCC) documented in this encounter Care Teams [place] Department Supervisor Relationship Specialty Start Date End Date Wilber Cleaning Jr., MD [address] [place] [address] PCP - General 07/03/16 07/15/20 documented as of this encounter
--- OUTSIDE RECORDS SUMMARY | 2024-03-25 11:07 | XMS_ITS | Encounter Summary ---
Author Organization [facility] Address [address] [place] [address] Phone Care Team Providers Care Directional Drill Operator Name Role Phone Hermila Calhoun MD, Wilber Martinez Primary Care Provider Encounter Details Date Type Department Care Team (Latest Contact Info) Description 08/19/2018 Anticoagulation Telephone Call [facility] Cardiology [address] [facility] Medical Office Building [address] [place] [address] Catarina Huerta MD [address] [facility] [address] [place] [address] Atrial fibrillation, unspecified type (CMS/HCC) Social History Tobacco Use Types Packs/Day Years Used Date Smoking Tobacco: Never Smokeless Tobacco: Never Comments Unknown Sex and Gender Information Value Date Recorded Sex Assigned at Not on file Legal Sex Female 4:20 AM SPORTS TEAM MANAGER Gender Identity Not on file Sexual [...] more information on this test, go to: http://YouAppi.Clear Blue Technologies/faq/CKK136 Blood specimen (specimen) 12/07/2018 11:04 AM CDT 12/07/2018 11:04 AM CDT Narrative Resulting Agency Comment Performing Organization Information: ?Site ID: [place] ?Name: [facility] ?Address: [facility] Administration [place] [address] ?Director: Christian Wheeler Catarina Huerta MD LAB BLOOD ORDERABLES Final R esult [facility] [place] * (ABNORMAL) Protime-INR (11/30/2018 9:30 AM CDT) INR 3.7(H) [facility] - Comment: Reference Range ? 0.9-1.1 Moderate-intensity Warfarin Therapy 2.0-3.0 Higher-intensity Warfarin Therapy ?? 3.0-4.0 PT 37.7(H) 9.0 - 11.5 sec [facility] - Comment: For more information on this test, go to: http://YouAppi.Clear Blue Technologies/faq/EIO283 Blood specimen (specimen) 11/30/2018 9:30 AM CDT 11/30/2018 9:31 AM CDT Narrative Resulting Agency Comment Performing Organization Information: ?Site ID: ?Name: [facility] ?Address: [address] [place] [address] ?Director: Christian Wheeler us Catarina Huerta MD LAB BLOOD ORDERABLES Final R esult Performing Organization Address [facility] Co de Phone Number [facility] - [place], [place] * (ABNORMAL) Protime-INR (11/17/2018 10:45 AM CDT) INR 1.7(H) [facility] - Comment: Reference Range ? 0.9-1.1 Moderate-intensity Warfarin Therapy 2.0-3.0 Higher-intensity Warfarin Therapy ?? 3.0-4.0 PT 17.5(H) 9.0 - 11.5 sec [facility] - Comment: For more information on this test, go to: http://SEDLine/faq/GKQ966 Blood specimen (specimen) 11/17/2018 10:45 AM CDT 11/17/2018 10:45 AM CDT Narrative Resulting Agency Comment Performing Organization Information: ?Site ID: ?Name: [facility] ?Address: [facility] [place] [address] ?Director: Christian Wheeler Catarina Huerta MD LAB BLOOD ORDERABLES Final R esult Performing Organization Address [facility] Co de Phone Number [facility] - [place], [place] * (ABNORMAL) Protime-INR (11/11/2018 9:16 AM CDT) INR 3.4(H) [facility] - Comment: Reference Range ? 0.9-1.1 Moderate-intensity Warfarin Therapy 2.0-3.0 Higher-intensity Warfarin Therapy ?? 3.0-4.0 PT 34.2(H) 9.0 - 11.5 sec [facility] [place] Comment: For more information on this test, go to: http://SEDLine/faq/AIG380 Blood specimen (specimen) 11/11/2018 9:16 AM CDT 11/11/2018 9:17 AM CDT Narrative Resulting Agency Comment Performing Organization Information: ?Site ID: SL ?Name: [facility] ?Address: [facility] [place] [address] ?Director: Christian Wheeler Catarina Huerta MD LAB BLOOD ORDERABLES Final R esult Performing Organization Address [facility] de Phone Number [facility] - [place], [place] * (ABNORMAL) Protime-INR (11/04/2018 9:36 AM CDT) INR 3.6(H) [facility] [place] Comment: Reference Range ? 0.9-1.1 Moderate-intensity Warfarin Therapy 2.0-3.0 Higher-intensity Warfarin Therapy ?? 3.0-4.0 PT 36.1(H) 9.0 - 11.5 sec [facility] [place] Comment: For more information on this test, go to: http://education.Clear Blue Technologies/faq/UWW215 Blood specimen (specimen) 11/04/2018 9:36 AM CDT 11/04/2018 9:36 AM CDT Narrative Resulting Agency Comment Performing Organization Information: ?Site ID: SL ?Name: [facility] ?Address: [facility] [place] [address] ?Director: Christian Wheeler Catarina Huerta MD LAB BLOOD ORDERABLES Final R esult Performing Organization Address City/[facility] Co de Phone Number [facility] [place], [place] * (ABNORMAL) Protime-INR (09/30/2018 8:39 AM CDT) INR 2.5(H) [facility] [place] Comment: Reference Range ? 0.9-1.1 Moderate-intensity Warfarin Therapy 2.0-3.0 Higher-intensity Warfarin Therapy ?? 3.0-4.0 PT 25.4(H) 9.0 - 11.5 sec [facility] [place] Comment: For more information on this test, go to: http://YouAppi.Clear Blue Technologies/faq/DLS293 Blood specimen (specimen) 09/30/2018 8:39 AM CDT 09/30/2018 8:40 AM CDT Narrative Resulting Agency Comment Performing Organization Information: ?Site ID: ?Name: [facility] ?Address: [address] [place] [address] ?Director: Christian Wheeler us Catarina Huerta MD LAB BLOOD ORDERABLES Final R esult [facility] [place] * (ABNORMAL) Protime-INR (09/03/2018 11:44 AM CDT) INR 2.7(H) [facility] [place] Comment: Reference Range ? 0.9-1.1 Moderate-intensity Warfarin Therapy 2.0-3.0 Higher-intensity Warfarin Therapy ?? 3.0-4.0 PT 26.5(H) 9.0 - 11.5 sec [facility] [place] Comment: For more information on this test, go to: http://YouAppi.Clear Blue Technologies/faq/XQP069 Blood specimen (specimen) 09/03/2018 11:44 AM CDT 09/03/2018 11:44 AM CDT Narrative Resulting Agency Comment Performing Organization Information: ?Site ID: [place] ?Name: [facility] ?Address: [address] [address] ?Director: Darryl Keys D.O., MPH us Catarina Huerta MD LAB BLOOD ORDERABLES Final R esult [facility] [place] documented in this encounter Visit Diagnoses Diagnosis Atrial fibrillation, unspecified type (HCC) documented in this encounter Care Teams Directional Drill Operator Relationship Specialty Start Date End Date Wilber Cleaning Jr., MD [address] [place] [address] PCP - General 07/03/16 07/15/20 documented as of this encounter
--- OUTSIDE RECORDS SUMMARY | 2024-03-25 11:07 | XMS_ITS | Encounter Summary ---
Author Organization [facility] Address [address] [place] [address] Phone Care Team Providers Care Under Presser Name Role Phone Hermila Calhoun MD, Wilber Martinez Primary Care Provider Encounter Details Date Type Department Care Team (Latest Contact Info) Description 12/07/2018 Anticoagulation Telephone Call [facility] Cardiology [address] [facility] Medical Office Building [address] [place] [address] Catarina Huerta MD [address] [facility] [address] [place] [address] Persistent atrial fibrillation (CMS/HCC) Social History Tobacco Use Types Packs/Day Years Used Date Smoking Tobacco: Never Smokeless Tobacco: Never Comments Unknown Sex and Gender Information Value Date Recorded Sex Assigned at Not on file Legal Sex Female 4:20 AM STARCH TREATING ASSISTANT Gender Identity Not on file Sexual [...] Schedule Protime-INR Lab Routine Persistent atrial fibrillation ([facility]/HCC) 26 Occurrences starting 12/07/2018 until 06/07/2019, 7 completed documented as of this encounter Procedures Procedure Name Priority Date/Time Associated Diagnosis Comments PROTIME-INR Routine 05/19/2019 11:34 AM STARCH TREATING ASSISTANT Persistent atrial fibrillation PROTIME-INR Routine 05/11/2019 9:16 AM STARCH TREATING ASSISTANT Persistent atrial fibrillation PROTIME-INR Routine 02/25/2019 11:22 AM STARCH TREATING ASSISTANT Persistent atrial fibrillation PROTIME-INR Routine 02/17/2019 11:46 AM STARCH TREATING ASSISTANT Persistent atrial fibrillation PROTIME-INR Routine 02/08/2019 11:06 AM STARCH TREATING ASSISTANT Persistent atrial fibrillation PROTIME-INR Routine 01/10/2019 1:13 PM CDT Persistent atrial fibrillation PROTIME-INR Routine 12/21/2018 8:25 AM CDT Persistent atrial fibrillation documented in this encounter Results * (ABNORMAL) Protime-INR (05/19/2019 11:34 AM STARCH TREATING ASSISTANT) INR 2.2(H) [facility] [place] Comment: Reference Range ? 0.9-1.1 Moderate-intensity Warfarin Therapy 2.0-3.0 Higher-intensity Warfarin Therapy ?? 3.0-4.0 PT 23.5(H) 9.0 - 11.5 sec [facility] [place] Comment: For more information on this test, go to: http://SonicPollen.SnapRetail/faq/BDJ977 Blood specimen (specimen) 05/19/2019 11:34 AM STARCH TREATING ASSISTANT 05/19/2019 11:34 AM STARCH TREATING ASSISTANT Narrative Resulting Agency Comment Performing Organization Information: ?Site ID: [place] ?Name: [facility] ?Address: [facility] Administration [place] [address] ?Director: Christian Wheeler Cathleen Mccormick MD LAB BLOOD ORDERA BLES Final Result [facility] [place] * (ABNORMAL) Protime-INR (05/11/2019 9:16 AM STARCH TREATING ASSISTANT) INR 1.7(H) [facility] [place] Comment: Reference Range ? 0.9-1.1 Moderate-intensity Warfarin Therapy 2.0-3.0 Higher-intensity Warfarin Therapy ?? 3.0-4.0 PT 17.5(H) 9.0 - 11.5 sec [facility] [place] Comment: For more information on this test, go to: http://SonicPollen.SnapRetail/faq/QHE839 Blood specimen (specimen) 05/11/2019 9:16 AM STARCH TREATING ASSISTANT 05/11/2019 9:16 AM STARCH TREATING ASSISTANT Narrative Resulting Agency Comment Performing Organization Information: ?Site ID: [place] ?Name: [facility] ?Address: [address] [place] [address] ?Director: Christian Wheeler Cathleen Mccormick MD LAB BLOOD ORDERA BLES Final Result Performing Organization Address [facility] de Phone Number [facility] - [place], [place] * (ABNORMAL) Protime-INR (02/25/2019 11:22 AM STARCH TREATING ASSISTANT) INR 1.9(H) [facility] - Comment: Reference Range ? 0.9-1.1 Moderate-intensity Warfarin Therapy 2.0-3.0 Higher-intensity Warfarin Therapy ?? 3.0-4.0 PT 19.1(H) 9.0 - 11.5 sec [facility] - Comment: For more information on this test, go to: http://SonicPollen.SnapRetail/faq/BDC307 Blood specimen (specimen) 02/25/2019 11:22 AM STARCH TREATING ASSISTANT 02/25/2019 11:22 AM STARCH TREATING ASSISTANT Narrative Resulting Agency Comment Performing Organization Information: ?Site ID: ?Name: [facility] ?Address: [facility] [address] [place] [address] ?Director: Christian Wheeler Cathleen Mccormick MD LAB BLOOD ORDERA BLES Final Result Performing Organization Address [facility] de Phone Number [facility] - [place], [place] * (ABNORMAL) Protime-INR (02/17/2019 11:46 AM STARCH TREATING ASSISTANT) INR 2.1(H) [facility] - Comment: Reference Range ? 0.9-1.1 Moderate-intensity Warfarin Therapy 2.0-3.0 Higher-intensity Warfarin Therapy ?? 3.0-4.0 PT 21.4(H) 9.0 - 11.5 sec [facility] [place] Comment: For more information on this test, go to: http://Medlert/faq/DZZ472 Blood specimen (specimen) 02/17/2019 11:46 AM STARCH TREATING ASSISTANT 02/17/2019 11:46 AM STARCH TREATING ASSISTANT Narrative Resulting Agency Comment Performing Organization Information: ?Site ID: ?Name: [facility] ?Address: [facility] [address] [place] [address] ?Director: Christian Wheeler Cathleen Mccormick MD LAB BLOOD ORDERA BLES Final Result Performing Organization Address City/[facility]/ZIP Co de Phone Number [facility] [place], [place] * (ABNORMAL) Protime-INR (02/08/2019 11:06 AM STARCH TREATING ASSISTANT) INR 3.5(H) [facility] [place] Comment: Reference Range ? 0.9-1.1 Moderate-intensity Warfarin Therapy 2.0-3.0 Higher-intensity Warfarin Therapy ?? 3.0-4.0 PT 36.2(H) 9.0 - 11.5 sec [facility] [place] Comment: For more information on this test, go to: http://SonicPollen.SnapRetail/faq/ESD559 Blood specimen (specimen) 02/08/2019 11:06 AM STARCH TREATING ASSISTANT 02/08/2019 11:06 AM STARCH TREATING ASSISTANT Narrative Resulting Agency Comment Performing Organization Information: ?Site ID: ?Name: [facility] ?Address: [facility] [address] [place] [address] ?Director: Christian Wheeler Cathleen Mccormick MD LAB BLOOD ORDERA BLES Final Result [facility] [place], [place] * (ABNORMAL) Protime-INR (01/10/2019 1:13 PM CDT) INR 2.2(H) [facility] [place] Comment: Reference Range ? 0.9-1.1 Moderate-intensity Warfarin Therapy 2.0-3.0 Higher-intensity Warfarin Therapy ?? 3.0-4.0 PT 21.9(H) 9.0 - 11.5 sec [facility] [place] Comment: For more information on this test, go to: http://SonicPollen.SnapRetail/faq/HQU683 Blood specimen (specimen) 01/10/2019 1:13 PM CDT 01/10/2019 1:13 PM CDT Narrative [facility] - 01/11/2019 5:30 AM CDT FASTING:NO FASTING: NO Resulting Agency Comment Performing Organization Information: ?Site ID: [place] ?Name: [facility] ?Address: [address] [place] [address] [place] [address] ?Director: Darryl Keys D.O., MPH Cathleen Mccormick [...] more information on this test, go to: http://SonicPollen.SnapRetail/faq/AWQ929 Blood specimen (specimen) 12/21/2018 8:25 AM CDT 12/21/2018 8:25 AM CDT Narrative Resulting Agency Comment Performing Organization Information: ?Site ID: [place] ?Name: [facility] ?Address: [address] [place] [address] ?Director: Christian Wheeler Cathleen Mccormick MD LAB BLOOD ORDERA BLES Final Result [facility] [place] documented in this encounter Visit Diagnoses Diagnosis Persistent atrial fibrillation (HCC) Atrial fibrillation documented in this encounter Care Teams Under Presser Relationship Specialty Start Date End Date Wilber Cleaning Jr., MD [address] [place] [address] PCP - General 07/03/16 07/15/20 documented as of this encounter
--- OUTSIDE RECORDS SUMMARY | 2024-03-25 11:07 | XMS_ITS | Encounter Summary ---
Author Organization [facility] Address [address] [place] [address] Phone Care Team Providers Care Materials Technician Name Role Phone Hermila Calhoun MD, Wilber Martinez Primary Care Provider Reason for Referral * Cardiology (Routine) - Closed Specialty Diagnoses / Procedures Referred By Contac t Referred To Contact Diagnoses AF (paroxysmal atrial fibrillation) (CMS/HCC) (HCC) Dyspnea, unspecified type Procedures Transthoracic Echo Complete W Doppler/CF Cassandra Fish MD Phone: tel: fax: [facility] Referral ID Status Reason Start Date Expiration Date Visits Re quested Visits Authorized [id number] Closed 12/27/2018 07/07/2020 1 1 Reason for Visit * Reason Comments Follow-up * Cardiology (Routine) - Closed Specialty Diagnoses / Procedures Referred By Contac t Referred To Contact Cardiology Diagnoses 6m per LS Procedures NEW TO PROVIDER Catarina Huerta MD Phone: tel: fax: Cassandra Fish MD [phone] [facility] [address] [place] [address] Phone: tel: fax: Referral ID Status Reason Start Date Expiration Date Visits Re quested Visits Authorized [id number] Closed 12/17/2018 03/15/2019 5 5 Encounter Details Date Type Department Care Team (Late st Contact Info) Description 12/27/2018 9:30 AM CDT Office Visit [facility] Cardiology [address] [place] [address] Medical Office Building [address] [place] [address] Cassandra Fish MD [address] [facility] [address] [place] [address] [facility] [place] [address] AF (paroxysmal atrial fibrillation) (CMS/HCC) (Primary Dx); Essential hypertension; Lower extremity edema; Dyspnea, unspecified type Social History Tobacco Use Types Packs/Day Years Used Date Smoking Tobacco: Never Smokeless Tobacco: Never Comments Unknown Sex and Gender Information Value Date Recorded Sex Assigned at Not on file Legal Sex Female 4:20 AM DIRECTOR OF TRAUMA Gender Identity Not on file Sexual Orientation [...] * Patient Instructions* Cassandra Fish MD - 12/27/2018 9:30 AM CDT [...] Progress Notes * Cassandra Fish MD - 12/27/2018 9:30 AM CDT Provider: Cassandra Fish MD Patient Name: Prema [...] on phone: None Gets together: None Attends alevism service: None Active member of club or [...] aorta. Mod LAE and mild-to-mod MR. Mild TR/NH with est PA pressure 41/9 mm Hg [...] Cassandra Fish MD documented in this encounter Miscellaneous [...] test: 12/31/2018 Type of test: TTE w/Doppler [facility] #: [id number] Date of : 1940 (F) Communications Manager: Maryann Kamara RDMS, RVT, RDCS Referring Physician: CASSANDRA FISH MD Contrast Agent: 1.1 ml Optison Administered, (1.9 ml wasted). Contrast Administered by: Nan Mejia RN Supervised/Interpreted by: Nathen Ortiz MD Diagnosis: Location: [facility] Reason for test: Atrial Fibrillation MV [...] 2=Hypo 3=Akinetic 4=Dyskin./Aneurysm 0=Not visualized) Parasternal Long [place]:MAS=2 BAS=2 MP=2 BP=2 Parasternal [place]:MAS=2 MS=2 IL=2 MP=2 ML=2 MA=2 Apical 4 Chambers:=2 MS=2 BS=2 BL=2 IL=2 AL=2 Apical 2 Chambers:AI=2 IL=2 BI=2 BA=2 MA=2 AA=2 LV Global Longitudinal Strain: -13.5% ??(Normal <-19%) RV Global Longitudinal Strain: LV Function: Mild Global reduction in LV Ejection Fraction (EF=41-53%) RV Function: Normal Septal Motion: Normal Pericardial Effusion: none seen Atrial Septum: Normal DOPPLER/COLOR FOLOW DOPPLER RESULTS: Diastolic Function: Grade I, altered relax. w/N. LA pres. Tricuspid Valve: mild TV regurgitation Pulmonic Valve: Mild NH AV Regurgitation: No AR seen AV Stenosis: [...] , no MS, mild TV regurgitation, Mild NH. Diastolic function: Grade I, altered relax. w/N. [...] MD By signing this report, the attending stamping operator certifies that he or she has personally supervised and interpreted the echocardiogram and has reviewed and or edited and agrees with the written comments contained within the report. Procedure Note Nathen Ortiz MD - 01/03/2019 Patient name: Prema Pearce Date of test: 12/31/2018 Type of test: TTE w/[facility] #: [id number] Date of : 1940 (F) Communications Manager: Maryann Kamara, RDMS, RVT, RDCS Referring Physician: CASSANDRA FISH MD Contrast Agent: 1.1 ml Optison Administered, (1.9 ml wasted). Contrast Administered by: Nan Mejia RN Supervised/Interpreted by: Nathen Ortiz MD Diagnosis: Location: [facility] Reason for test: Atrial Fibrillation MV [...] 2=Hypo 3=Akinetic 4=Dyskin./Aneurysm 0=Not visualized) Parasternal [place]:MAS=2 BAS=2 MP=2 BP=2 Parasternal [place]:MAS=2 MS=2 IL=2 MP=2 ML=2 MA=2 Apical 4 Chambers:=2 MS=2 BS=2 BL=2 IL=2 AL=2 Apical 2 Chambers:AI=2 IL=2 BI=2 BA=2 MA=2 AA=2 LV Global Longitudinal Strain: -13.5% (Normal <-19%) RV Global Longitudinal Strain: LV Function: Mild Global reduction in LV Ejection Fraction (EF=41-53%) RV Function: Normal Septal Motion: Normal Pericardial Effusion: none seen Atrial Septum: Normal DOPPLER/COLOR FOLOW DOPPLER RESULTS: Diastolic Function: Grade I, altered relax. w/N. LA pres. Tricuspid Valve: mild TV regurgitation Pulmonic Valve: Mild NH AV Regurgitation: No AR seen AV Stenosis: [...] , no MS, mild TV regurgitation, Mild NH. Diastolic function: Grade I, altered relax. w/N. [...] MD By signing this report, the attending stamping operator certifies that he or she has personally supervised and interpreted the echocardiogram and has reviewed and or edited and agrees with the written comments contained within the report. Result [facility] Cassandra Mccormick MD CV ECHO PROCEDUR ES Final Result documented in this encounter Visit Diagnoses Diagnosis AF (paroxysmal atrial fibrillation) ([facility]) ([facility])- Primary Atrial fibrillation Essential hypertension Unspecified essential hypertension Lower extremity edema Edema Dyspnea, unspecified type AF (paroxysmal atrial fibrillation) ([facility]) ([facility]) Atrial fibrillation Dyspnea, unspecified type documented in [...] 05/27/2019 added in this encounter Care Teams Materials Technician Relationship Specialty Start Date End Date Wilber Cleaning Jr., MD [address] [place] [address] PCP - General 07/03/16 07/15/20 documented as of this encounter
--- OUTSIDE RECORDS SUMMARY | 2024-03-25 11:08 | XMS_ITS | Encounter Summary ---
Author Organization [facility] Address [address] [facility] [address] [place] [address] Care Team Providers Care Cable Ferry Operator Name Role Phone Hermila Calhoun MD, Wilber Martinez Primary Care Provider Ryann Galdamez Primary Care Provider [phone] Encounter Details Date Type Department Care Team (Late st Contact Info) Description 09/03/2017 Orders Only [facility] Health Information Management [address] [place] [address] Scanning, Provider Social History Tobacco Use Types [...] on file Legal Sex Female 4:20 AM RADIATOR FITTER Gender Identity Not on file Sexual Orientation [...] pt afebrile, without URI signs/symptoms. Aislinn Goldsmith, ADULT PSYCHIATRIST 06/09/2019 06/09/2019 06/09/2019 4:20 PM C DT documented as of this encounter Care Teams Cable Ferry Operator Relationship Specialty Start Date End Date Wilber Cleaning Jr., MD [address] [place] [address] PCP - General 07/03/16 07/15/20 Ryann Galdamez PA [address] [place] [address] PCP - General Mold Yard Worker 07/16/20 04/01/21 documented as of this encounter
--- OUTSIDE RECORDS SUMMARY | 2024-03-25 11:08 | XMS_ITS | Encounter Summary ---
Author Organization [facility] Address [address] [facility] [address] [place] [address] Care Team Providers Care Fundraising Sale Representative Name Role Phone Hermila Calhoun MD, Wilber Martinez Primary Care Provider Ryann Galdamez Primary Care Provider [phone] Encounter Details Date Type Department Care Team (Late st Contact Info) Description 11/21/2016 Orders Only [facility] Information Management [address] [place] [address] Scanning, Provider Social History Tobacco Use Types [...] file Legal Sex Female 4:20 AM MANAGER CRISIS Gender Identity Not on file Sexual Orientation [...] afebrile, without URI signs/symptoms. Aislinn Goldsmith, DIGITAL MEDIA BUYER 06/09/2019 06/09/2019 06/09/2019 4:20 PM C DT documented as of this encounter Care Teams Fundraising Sale Representative Relationship Specialty Start Date End Date Wilber Cleaning Jr., MD [address] [place] [address] PCP - General 07/03/16 07/15/20 Ryann Galdamez PA [address] [place] [address] PCP - General Vacuum Pan Operator 07/16/20 04/01/21 documented as of this encounter
--- OUTSIDE RECORDS SUMMARY | 2024-03-25 11:08 | XMS_ITS | Encounter Summary ---
Author Organization [facility] Facility Care Team Providers Care Aerospace Assembler Name Role Phone Unavailable Primary Care Provider Unavailabl e Encounter Details Date Type Department Care Team (Latest Contact Info) Description 05/03/2010 3:56 PM ARBORIST REPRESENTATIVE - 05/06/2010 10:49 AM [facility] Hospital Encounter [facility] Catarina Huerta MD [address] [place] [address] Atrial fibrillation (CMS/HCC) (HCC); Essential hypertension; Other and unspecified hyperlipidemia; Esophageal reflux; Other depressive disorder; Arthropathy; Viral infection in conditions classified elsewhere and of unspecified site; Thyrotoxicosis; Chronic sinusitis Social History Tobacco Use Types Packs/Day Years Used Date Smoking Tobacco: Never Assessed Comments Unknown Sex and Gender Information Value Date Recorded Sex Assigned at Not on file Legal Sex Female 4:20 AM ARBORIST REPRESENTATIVE Gender Identity Not on file Sexual [...]
--- OUTSIDE RECORDS SUMMARY | 2024-03-25 11:08 | XMS_ITS | Encounter Summary ---
Author Organization [facility] Address [address] [place] [address] Care Team Providers Care Middle School Counselor Name Role Phone Hermila Calhoun MD, Wilber Martinez Primary Care Provider Ryann Galdamez Primary Care Provider [phone]- [phone] Ryann Galdamez Primary Care Provider +[phone]- [phone] Chris Mendes MD Unavailable [phone] Keli Orozco RN Unavailable Unavailable Alysa Newton RN Unavailable [phone] Cuba Larsen MD Primary Care Provider [phone] Keli Orozco RN Unavailable Unavailable Keli Orozco RN Unavailable Unavailable Tami Mcknight RN Unavailable Unavailab le Encounter Details Date Type Department Care Team (Late st Contact Info) Description 04/27/2013 Orders Only [facility] Health Information Management [address] [place] [address] Scanning, Provider Social History Tobacco Use Types Packs/Day Years Used Date Smoking Tobacco: Never Assessed Comments Unknown Sex and Gender Information Value Date Recorded Sex Assigned at Not on file Legal Sex Female 4:20 AM CONTRACT SERVICEMAN Gender Identity Not on file Sexual Orientation [...] pt afebrile, without URI signs/symptoms. Aislinn Goldsmith, NUTRITION COORDINATOR 06/09/2019 06/09/2019 06/09/2019 4:20 PM C DT documented as of this encounter Care Teams Middle School Counselor Relationship Specialty Start Date End Date Wilber Cleaning Jr., MD [address] [place] [address] PCP - General 07/03/16 07/15/20 Ryann Galdamez PA [address] [place] [address] PCP - General Yeast Culture Developer 07/16/20 04/01/21 Ryann Galdamez PA [address] [place] [address] PCP - General Yeast Culture Developer 04/02/21 01/22/22 Cuba Larsen MD [address] [address] PCP - General Family Medicine 01/23/22 Chris Mendes MD [address] [place] [address] Referring Physician Cardiology 12/23/21 Keli Orozco, dealership managerYouth Counselor Cardiology 12/23/21 04/15/23 Alysa Newton, RN [address] [address] Youth Counselor Cardiology 12/23/21 Keli Orozco, taco maker Failure Coordinator 04/02/23 4 Keli Orozco, taco maker Failure Coordinator Transplant 04/15/23 Tami Mcknight taco maker Failure Coordinator Cardiology 09/14/23 documented as of this encounter
--- OUTSIDE RECORDS SUMMARY | 2024-03-25 11:08 | XMS_ITS | Encounter Summary ---
Author Organization [facility] Address [address] [place] [address] Phone Care Team Providers Care Cotton Agent Name Role Phone Hermila Calhoun MD, Wilber Martinez Primary Care Provider Encounter Details Date Type Department Care Team (Late st Contact Info) Description 08/14/2017 Orders Only [facility] Cardiology [address] [place] [id number] Catarina Huerta MD [address] [facility] [address] [place], [place] [id number] Social History Tobacco Use Types Packs/Day Years Used Date Smoking Tobacco: Never Comments Unknown Sex and Gender Information Value Date Recorded Sex Assigned at Not on file Legal Sex Female 4:20 AM FERTILIZER LOADER Gender Identity Not on file Sexual Orientation Not on file documented as of this encounter Plan of Treatment Not on file documented as of this encounter Procedures Procedure Name Priority Date/Time Associated Diagnosis Comments PROTIME-INR Routine 09/02/2017 9:11 AM CDT PROTIME-INR Routine 08/14/2017 10:23 AM CDT documented in this encounter Results * (ABNORMAL) Protime-INR (09/02/2017 9:11 AM CDT) INR 2.4(H) [facility] Comment: Reference Range ? 0.9-1.1 Moderate-intensity Warfarin Therapy 2.0-3.0 Higher-intensity Warfarin Therapy ?? 3.0-4.0 PT 25.5(H) 9.0 - 11.5 sec [facility] Comment: For more information on this test, go to: [email or web address] 09/02/2017 9:11 AM CDT 09/02/2017 9:12 AM CDT Narrative [facility] - 09/03/2017 5:00 AM CDT FASTING:NO FASTING: NO Resulting Agency Comment Performing Organization Information: ?Site ID: [place] ?Name: [facility] ?Address: [address] [place] [id number] ?Director: Darryl Keys D.O., MPH us Catarina Huerta MD LAB BLOOD ORDERABLES Final R esult [place], [place] * (ABNORMAL) Protime-INR (08/14/2017 10:23 AM CDT) INR 2.1(H) [facility] Comment: Reference Range ? 0.9-1.1 Moderate-intensity Warfarin Therapy 2.0-3.0 Higher-intensity Warfarin Therapy ?? 3.0-4.0 PT 22.9(H) 9.0 - 11.5 sec [facility] Comment: For more information on this test, go to: [email or web address] 08/14/2017 10:2 3 AM CDT 08/14/2017 10:23 AM CDT Narrative [facility] - 08/15/2017 5:07 AM CDT FASTING:NO FASTING: NO Resulting Agency Comment Performing Organization Information: ?Site ID: JAREN ?Name: [facility] ?Address: [address] [id number] ?Director: Darryl Keys D.O., MPH us Catarina Huerta MD LAB BLOOD ORDERABLES Final R esult [facility] documented in this encounter Visit Diagnoses Not on filedocumented in this encounter Care Teams Cotton Agent Relationship Specialty Start Date End Date Wilber Cleaning Jr., MD [address] [place] [address] PCP - General 07/03/16 07/15/20 documented as of this encounter
--- OUTSIDE RECORDS SUMMARY | 2024-03-25 11:08 | XMS_ITS | Encounter Summary ---
Author Organization [facility] Facility Care Team Providers Care Vp Of Product Name Role Phone Unavailable Primary Care Provider Unavailabl e Encounter Details Date Type Department Care Team (Late st Contact Info) Description 01/12/2013 1:50 PM CDT - 01/12/2013 4:00 PM CDT Hospital Encounter [facility] CLINCONV Catarina Huerta MD [address] [place] [address] Social History Tobacco Use Types Packs/Day Years Used Date Smoking Tobacco: Never Assessed Comments Unknown Sex and Gender Information Value Date Recorded Sex Assigned at Not on file Legal Sex Female 4:20 AM MILLED LUMBER GRADER Gender Identity Not on file Sexual [...]
--- OUTSIDE RECORDS SUMMARY | 2024-03-25 11:08 | XMS_ITS | Encounter Summary ---
Author Organization [facility] Address [address] [place] [address] Care Team Providers Care Emergency Department Rn Name Role Phone Hermila Calhoun MD, Wilber Martinez Primary Care Provider Ryann Galdamez Primary Care Provider [phone] Ryann Galdamez Primary Care Provider [phone] Chris Mendes MD Unavailable [phone] Keli Orozco RN Unavailable Unavailable Alysa Newton RN Unavailable [phone] Cuba Larsen MD Primary Care Provider [phone] Keli Orozco RN Unavailable Unavailable Keli Orozco RN Unavailable Unavailable Tami Mcknight RN Unavailable Unavailab le Encounter Details Date Type Department Care Team (Late st Contact Info) Description 08/04/2014 Orders Only [facility] Health Information Management [address] [place] [address] Scanning, Provider Social History Tobacco Use Types Packs/Day Years Used Date Smoking Tobacco: Never Assessed Comments Unknown Sex and Gender Information Value Date Recorded Sex Assigned at Not on file Legal Sex Female 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 Aislinn Goldsmith, ASSOCIATE SALES MANAGER 06/09/2019 06/09/2019 06/09/2019 4:20 PM C DT documented as of this encounter Care Teams Emergency Department Rn Relationship Specialty Start Date End Date Wilber Cleaning Jr., MD [address] [place] [address] PCP - General 07/03/16 07/15/20 Ryann Galdamez PA [address] [place] [address] PCP - General Defence Force Senior Officer 07/16/20 04/01/21 Ryann Galdamez PA [address] [place] [address] PCP - General Defence Force Senior Officer 04/02/21 01/22/22 Cuba Larsen MD [address] [address] PCP - General Family Medicine 01/23/22 Chris Mendes MD [address] [place] [address] Referring Physician Cardiology 12/23/21 Keli Orozco, manager proposalDecoration Checker Cardiology 12/23/21 04/15/23 Alysa Newton, RN [address] [address] Decoration Checker Cardiology 12/23/21 Keli Orozco, clockmaker apprentice Failure Coordinator 04/02/23 4 Keli Orozco, clockmaker apprentice Failure Coordinator Transplant 04/15/23 Tami Mcknight clockmaker apprentice Failure Coordinator Cardiology 09/14/23 documented as of this encounter
--- OUTSIDE RECORDS SUMMARY | 2024-03-25 11:08 | XMS_ITS | Encounter Summary ---
Author Organization [facility] Facility Care Team Providers Care Intelligence Clerk Name Role Phone Unavailable Primary Care Provider Unavailabl e Encounter Details Date Type Department Care Team (Late st Contact Info) Description 08/19/2007 11:30 AM CDT Hospital Encounter [facility]CON[facility] Leonard MD [address] [facility] [address] [place] [address] Social History Tobacco Use Types Packs/Day Years Used Date Smoking Tobacco: Never Assessed Comments Unknown Sex and Gender Information Value Date Recorded Sex Assigned at Not on file Legal Sex Female 4:20 AM CASE MANAGEMENT RN Gender Identity Not on file Sexual Orientation Not on file documented as of this encounter Plan of Treatment Not on file documented as of this encounter Visit Diagnoses Not on filedocumented in this encounter
--- OUTSIDE RECORDS SUMMARY | 2024-03-25 11:08 | XMS_ITS | Encounter Summary ---
Author Organization [facility] Address [address] [place] [address] Phone Care Team Providers Care Personal Shopper Name Role Phone Hermila Calhoun MD, Wilber Martinez Primary Care Provider Encounter Details Date Type Department Care Team (Latest Contact Info) Description 09/03/2017 Anticoagulation Visit [facility] Cardiology [facility] [facility] Medical Office [address] [place] [address] Catarina Huerta MD [facility] [address] [place] [address] Atrial fibrillation, unspecified type (CMS/HCC) Social History Tobacco Use Types Packs/Day Years Used Date Smoking Tobacco: Never Comments Unknown Sex and Gender Information Value Date Recorded Sex Assigned at Not on file 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
--- OUTSIDE RECORDS SUMMARY | 2024-03-25 11:08 | XMS_ITS | Encounter Summary ---
Author Organization [facility] Address [address] [place] [address] Care Team Providers Care Air Conditioning Manager Name Role Phone Hermila Calhoun MD, Wilber Martinez Primary Care Provider Ryann Galdamez Primary Care Provider [phone] Ryann Galdamez Primary Care Provider [phone] Chris Mendes MD Unavailable [phone] Keli Orozco RN Unavailable Unavailable Alysa Newton RN Unavailable [phone] Cuba Larsen MD Primary Care Provider Keli Orozco RN Unavailable Unavailable Keli Orozco RN Unavailable Unavailable Tami Mcknight RN Unavailable Unavailab le Encounter Details Date Type Department Care Team (Late st Contact Info) Description 09/29/2014 Orders Only [facility] Health Information Management [address] [place] [address] Scanning, Provider Social History Tobacco Use Types Packs/Day Years Used Date Smoking Tobacco: Never Assessed Comments Unknown Sex and Gender Information Value Date Recorded Sex Assigned at Not on file 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 Aislinn Goldsmith, RIB PULLER 06/09/2019 06/09/2019 06/09/2019 4:20 PM C DT documented as of this encounter Care Teams Air Conditioning Manager Relationship Specialty Start Date End Date Wilber Cleaning Jr., MD [address] [place] [address] PCP - General 07/03/16 07/15/20 Ryann Galdamez PA [address] [place] [address] PCP - General Quality Control Manager 07/16/20 04/01/21 Ryann Galdamez PA [address] [place] [address] PCP - General Quality Control Manager 04/02/21 01/22/22 Cuba Larsen MD [address] [facility] [address] [place] [address] PCP - General Family Medicine 01/23/22 Chris Mendes MD [address] [place] [address] Referring Physician Cardiology 12/23/21 Keli Orozco, pick pulling machine tenderHeel Seat Trimmer Cardiology 12/23/21 04/15/23 Alysa Newton, ARMANI [address] [facility] [address] [place] [address] Heel Seat Trimmer Cardiology 12/23/21 Keli Orozco, balance wheel facer Failure Coordinator 04/02/23 4 Keli Orozco, balance wheel facer Failure Coordinator Transplant 04/15/23 Tami Mcknight balance wheel facer Failure Coordinator Cardiology 09/14/23 documented as of this encounter
--- OUTSIDE RECORDS SUMMARY | 2024-03-25 11:08 | XMS_ITS | Encounter Summary ---
Author Organization [facility] Address [address] [place] [address] Phone Care Team Providers Care State Editor Name Role Phone Hermila Calhoun MD, Wilber Martinez Primary Care Provider Ryann Galdamez Primary Care Provider [phone] Ryann Galdamez Primary Care Provider [phone] Chris Mendes MD Unavailable [phone] Keli Orozco RN Unavailable Unavailable Alysa Newton RN Unavailable [phone] Cuba Larsen MD Primary Care Provider Keli Orozco RN Unavailable Unavailable Keli Orozco RN Unavailable Unavailable Tami Mcknight RN Unavailable Unavailab le Encounter Details Date Type Department Care Team (Latest Contact Info) Description 1940 Orders Only [facility] CARDIOLOGY Margarita Méndez RN Social History Tobacco Use Types Packs/Day Years Used Date Smoking Tobacco: Never Assessed Comments Unknown Sex and Gender Information Value Date Recorded Sex Assigned at Not on file 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 Aislinn Goldsmith, ROTARY MACHINE OPERATOR 06/09/2019 06/09/2019 06/09/2019 4:20 PM C DT documented as of this encounter Care Teams State Editor Relationship Specialty Start Date End Date Wilber Cleaning Jr., MD [address] [place] [address] PCP - General 07/03/16 07/15/20 Ryann Galdamez PA [address] [place] [address] PCP - General Vice President Of Procurement 07/16/20 04/01/21 Ryann Galdamez PA [address] [place] [address] PCP - General Vice President Of Procurement 04/02/21 01/22/22 Cuba Larsen MD [address] [address] PCP - General Family Medicine 01/23/22 Chris Mendes MD [address] [place] [address] Referring Physician Cardiology 12/23/21 Keli Orozco, drapery cutter machineGeophysical Laboratory Director Cardiology 12/23/21 04/15/23 Alysa Newton, RN [address] [facility] [address] [place] [address] Geophysical Laboratory Director Cardiology 12/23/21 Keli Orozco, sales trainer Failure Coordinator 04/02/23 4 Keli Orozco, sales trainer Failure Coordinator Transplant 04/15/23 Tami Mcknight sales trainer Failure Coordinator Cardiology 09/14/23 documented as of this encounter
--- OUTSIDE RECORDS SUMMARY | 2024-03-25 11:08 | XMS_ITS | Encounter Summary ---
Author Organization [facility] Address [address] [place] [address] Care Team Providers Care Electrical System Specialist Name Role Phone Hermila Calhoun MD, Wilber Martinez Primary Care Provider Encounter Details Date Type Department Care Team (Latest Contact Info) Description 07/16/2016 11:37 AM CDT - 07/16/2016 7:10 PM T Hospital Encounter [facility] [phone] Garrett Ray MD [address] [facility] [address] [place] [address] Discharge Disposition: Discharge to home or self care Social History Tobacco Use Types Packs/Day Years Used Date Smoking Tobacco: Never Assessed Comments Unknown Sex and Gender Information Value Date Recorded Sex Assigned at Not on file 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 Surgeon: Garrett Ray M.D. Dictating: Garrett Ray M.D. Service Dt: 07/16/2016 OPERATIVE REPORT FACILITY ID: [facility] SURGEON Garrett Ray MD ADDENDUM I was [...] 07/21/2016 12:52 PM CDT Garrett Ray M.D. G:[facility] #[id number] Editing MT: TD: 07/16/2016 04:22 PM cc: Garrett Ray M.D. * Op Note - Provider, MD Cameron - 07/16/2016 12:00 AM CDT Patient: EVAN HODGSON Reg No: [id number] U H #: [id number] Admit Dt.: 07/16/2016 : 1940 Pt Type: [facility] Room No: Attending: Garrett Ray M.D. Surgeon: Garrett Ray M.D. Dictating: Ce Logan M.D. Service Dt: 07/16/2016 OPERATIVE REPORT FACILITY ID: [facility] SURGEON Garrett Ray MD FIRST FIELD ARTILLERY OFFICER Ce Logan MD ANESTHESIA General endotracheal anesthesia. [...] CDT Ce Logan M.D. Garrett Ray M.D. [facility] #[id number] Editing MT: ADM TD: 07/17/2016 09:29 AM cc: Lisseth Sy M.D. * Op Note - Provider, MD Cameron - 07/16/2016 12:00 AM CDT Patient: EVAN HODGSON Reg No: [id number] U H #: [id number] Admit Dt.: 07/16/2016 : 1940 Pt Type: SDS Room No: Attending: Garrett Ray M.D. Surgeon: Garrett Ray M.D. Dictating: Garrett Ray M.D. Service Dt: 07/16/2016 OPERATIVE REPORT FACILITY ID: [facility] ADDENDUM SURGEON Garrett Ray MD ADDENDUM I participated in the espitia portions of this procedure and was otherwise immediately available. The fracture was intraarticular with 3+ fragments. Electronically Authenticated and Edited by: Garrett Ray MD On 08/04/2016 07:18 AM CDT Garrett Ray M.D. G:[facility] #[id number] Editing MT: TD: 08/01/2016 07:47 AM cc: [...] Glucose, POC 139 70 - 199 mg/dL [facility] Blood specimen (specimen) 07/16/2016 4:56 PM CDT 07/16/2016 4:56 PM CDT us Garrett Ray MD POINT OF CARE TEST ORDER GEE Final Result Performing Organization Address City/[facility]/ZIP Co de Phone Number [facility] [place] [address] * Glucose POC (07/16/2016 12:48 PM CDT) Glucose, POC 90 70 - 199 mg/dL [facility] Blood specimen (specimen) 07/16/2016 12:48 PM CDT 07/16/2016 12:48 PM CDT us Garrett Ray MD POINT OF CARE TEST ORDER GEE Final Result Performing Organization Address City/[facility]/ZIP Co de Phone Number [facility] [place] [address] * (ABNORMAL) Protime-INR (07/16/2016 12:43 PM CDT) PT 32.0(H) 9.2 - 14.0 sec [facility] INR 2.75(H) 0.81 - 1.22 [facility] Comment: Interpretive Data Inpatient therapeutic ranges* Atrial fibrillation ?2.0-3.0 INR Venous thrombo-embolism ?2.0-3.0 INR Bioprosthetic heart valve ?* Mechanical heart valve, bileaflet or tilting disk,aortic position ? 2.0-3.0 INR All other,or bileaflet or tilting disk, in mitral position ? 2.5-3.5 INR *See the pharmacy resource directory (PHRED) for an updated copy of the Tool Book at [email or web address].[email or web address] Current Interpretive Data was last revised 2011. Blood specimen (specimen) 07/16/2016 12:43 PM CDT 07/16/2016 12:52 PM CDT us Garrett Ray MD LAB BLOOD ORDERABLES Fin al Result Performing Organization Address City/State/[facility] Co de Phone Number [facility] Department [place] [address] documented in this encounter Visit Diagnoses Not on filedocumented in this encounter Care Teams Electrical System Specialist Relationship Specialty Start Date End Date Wilber Cleaning Jr., MD [address] [place] [address] PCP - General 07/03/16 07/15/20 documented as of this encounter
--- OUTSIDE RECORDS SUMMARY | 2024-03-25 11:08 | XMS_ITS | Encounter Summary ---
Author Organization [facility] Address [address] [place] [address] Care Team Providers Care Plant And Maintenance Technician Name Role Phone Hermila Calhoun MD, Wilber Martinez Primary Care Provider Ryann Galdamez Primary Care Provider [phone] Ryann Galdamez Primary Care Provider [phone]- [phone] Chris Mendes MD Unavailable [phone] Keli Orozco RN Unavailable Unavailable Alysa Newton RN Unavailable [phone] Cuba Larsen MD Primary Care Provider [phone] Keli Orozco RN Unavailable Unavailable Keli Orozco RN Unavailable Unavailable Tami Mcknight RN Unavailable Unavailab le Encounter Details Date Type Department Care Team (Late st Contact Info) Description 07/03/2016 Orders Only [facility] Health Information Management [address] [place] [address] Scanning, Provider Social History Tobacco Use Types Packs/Day Years Used Date Smoking Tobacco: Never Assessed Comments Unknown Sex and Gender Information Value Date Recorded Sex Assigned at Not on file 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 Aislinn Goldsmith, WRITING MANAGER 06/09/2019 06/09/2019 06/09/2019 4:20 PM C DT documented as of this encounter Care Teams Plant And Maintenance Technician Relationship Specialty Start Date End Date Wilber Cleaning Jr., MD [address] [place] [address] PCP - General 07/03/16 07/15/20 Ryann Galdamez PA [address] [place] [address] PCP - General Horticultural Farm Manager 07/16/20 04/01/21 Ryann Galdamez PA [address] [place] [address] PCP - General Horticultural Farm Manager 04/02/21 01/22/22 Cuba Larsen MD [address] [facility] [address] [place] [address] PCP - General Family Medicine 01/23/22 Chris Mendes MD [address] [place] [address] Referring Physician Cardiology 12/23/21 Keli Orozco, sound technicianLogistics Planning Manager Cardiology 12/23/21 04/15/23 Alysa Newton, ARMANI [address] [facility] [address] [place] [address] Logistics Planning Manager Cardiology 12/23/21 Keli Orozco, roads superintendent Failure Coordinator 04/02/23 4 Keli Orozco, roads superintendent Failure Coordinator Transplant 04/15/[address] superintendent Failure Coordinator Cardiology 09/14/23 documented as of this encounter
--- OUTSIDE RECORDS SUMMARY | 2024-03-25 11:08 | XMS_ITS | Encounter Summary ---
Author Organization [facility] Address [address] [place] [address] Care Team Providers Care Care Analyst Name Role Phone Hermila Calhoun MD, Wilber Martinez Primary Care Provider Ryann Galdamez Primary Care Provider [phone] Ryann Galdamez Primary Care Provider [phone] Chris Mendes MD Unavailable [phone] Keli Oroczo RN Unavailable Unavailable Alysa Newton RN Unavailable [phone] Cuba Larsen MD Primary Care Provider [phone] Keli Orozco RN Unavailable Unavailable Keli Orozco RN Unavailable Unavailable Tami Mcknight RN Unavailable Unavailab le Encounter Details Date Type Department Care Team (Late st Contact Info) Description 02/01/2016 Orders Only [facility] Information Management [address] [place] [address] Scanning, Provider Social History Tobacco Use Types Packs/Day Years Used Date Smoking Tobacco: Never Assessed Comments Unknown Sex and Gender Information Value Date Recorded Sex Assigned at Not on file Legal Sex Female 4:20 AM RENTAL COORDINATOR Gender Identity Not on file Sexual [...] pt afebrile, without URI signs/symptoms. Aislinn Goldsmith, PAGE MAKEUP SYSTEM OPERATOR 06/09/2019 06/09/2019 06/09/2019 4:20 PM C DT documented as of this encounter Care Teams Care Analyst Relationship Specialty Start Date End Date Wilber Cleaning Jr., MD [address] [place] [address] PCP - General 07/03/16 07/15/20 Ryann Galdamez PA [address] [place] [address] PCP - General Stereoplotter Operator 07/16/20 04/01/21 Ryann Galdamez PA [address] [place] [address] PCP - General Stereoplotter Operator 04/02/21 01/22/22 Cuba Larsen MD [address] [address] PCP - General Family Medicine 01/23/22 Chris Mendes MD [address] [place] [address] Referring Physician Cardiology 12/23/21 Keli Orozco, him directorWarehouse Shipper Cardiology 12/23/21 04/15/23 Alysa Newton, RN [address] [address] Warehouse Shipper Cardiology 12/23/21 Keli Orozco, bus matron Failure Coordinator 04/02/23 4 Keli Orozco, bus matron Failure Coordinator Transplant 04/15/23 Tami Mcknight bus matron Failure Coordinator Cardiology 09/14/23 documented as of this encounter
--- OUTSIDE RECORDS SUMMARY | 2024-03-25 11:08 | XMS_ITS | Encounter Summary ---
Author Organization [facility] Address [address] [place] [address] Phone Care Team Providers Care Rhia Name Role Phone Hermila Calhoun MD, Wilber Martinez Primary Care Provider Reason for Visit * Reason Onset Date Comments Anticoagulation 08/18/2017 Encounter Details Date Type Department Care Team (Late st Contact Info) Description 08/18/2017 Telephone [facility] Cardiology [facility] Medical Office [address] [place] [id number] Catarina Huerta MD [address] [id number] Anticoagulation Social History Tobacco Use Types Packs/Day Years Used Date Smoking Tobacco: Never Comments Unknown Sex and Gender Information Value Date Recorded Sex Assigned at Not on file Legal Sex Female 4:20 AM ENTEROSTOMAL NURSE Gender Identity Not on file Sexual [...] on filedocumented in this encounter Care Teams Rhia Relationship Specialty Start Date End Date Wilber Cleaning Jr., MD [address] [place] [address] PCP - General 07/03/16 07/15/20 documented as of this encounter
--- OUTSIDE RECORDS SUMMARY | 2024-03-25 11:08 | XMS_ITS | Encounter Summary ---
Author Organization [facility] Address [address] [place] [address] Care Team Providers Care Pulmonary Fellow Name Role Phone Hermila Calhoun MD, Wilber Martinez Primary Care Provider Ryann Galdamez Primary Care Provider [phone] Ryann Galdamez Primary Care Provider [phone] Chris Mendes MD Unavailable [phone] Keli Orozco RN Unavailable Unavailable Alysa Newton RN Unavailable [phone] Cuba Larsen MD Primary Care Provider [phone] Keli Orozco RN Unavailable Unavailable Keli Orozco RN Unavailable Unavailable Tami Mcknight RN Unavailable Unavailab le Encounter Details Date Type Department Care Team (Late st Contact Info) Description 10/17/2015 Orders Only [facility] Information Management [address] [place] [address] Scanning, Provider Social History Tobacco Use Types Packs/Day Years Used Date Smoking Tobacco: Never Assessed Comments Unknown Sex and Gender Information Value Date Recorded Sex Assigned at Not on file 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 Aislinn Goldsmith, LABEL DRIER 06/09/2019 06/09/2019 06/09/2019 4:20 PM C DT documented as of this encounter Care Teams Pulmonary Fellow Relationship Specialty Start Date End Date Wilber Cleaning Jr., MD [address] [place] [address] PCP - General 07/03/16 07/15/20 Ryann Galdamez PA [address] [place] [address] PCP - General Tenter 07/16/20 04/01/21 Ryann Galdamez PA [address] [place] [address] PCP - General Tenter 04/02/21 01/22/22 Cuba Larsen MD [address] [address] PCP - General Family Medicine 01/23/22 Chris Mendes MD [address] [place] [address] Referring Physician Cardiology 12/23/21 Keli Orozco, political analystEnvironmental Protection Economist Cardiology 12/23/21 04/15/23 Alysa Newton, RN [address] [address] Environmental Protection Economist Cardiology 12/23/21 Keli Orozco, disabilities caregiver Failure Coordinator 04/02/23 4 Keli Orozco, disabilities caregiver Failure Coordinator Transplant 04/15/23 Tami Mcknight disabilities caregiver Failure Coordinator Cardiology 09/14/23 documented as of this encounter
--- OUTSIDE RECORDS SUMMARY | 2024-03-25 11:08 | XMS_ITS | Encounter Summary ---
Author Organization [facility] Address [address] [place] [address] Care Team Providers Care Quality Eng Name Role Phone Hermila Calhoun MD, Wilber Martinez Primary Care Provider Ryann Galdamez Primary Care Provider [phone] Encounter Details Date Type Department Care Team (Late st Contact Info) Description 07/24/2017 Orders Only [facility] [address] [place] [address] Scanning, Provider Social History Tobacco Use Types [...] on file Legal Sex Female 4:20 AM SOLAR MAINTENANCE TECHNICIAN Gender Identity Not on file Sexual [...] pt afebrile, without URI signs/symptoms. Aislinn Goldsmith, GALLEY BOY 06/09/2019 06/09/2019 06/09/2019 4:20 PM C DT documented as of this encounter Care Teams Quality Eng Relationship Specialty Start Date End Date Wilber Cleaning Jr., MD [address] [place] [address] PCP - General 07/03/16 07/15/20 Ryann Galdamez PA [address] [place] [address] PCP - General Oil Processing Technician 07/16/20 04/01/21 documented as of this encounter
--- OUTSIDE RECORDS SUMMARY | 2024-03-25 11:08 | XMS_ITS | Encounter Summary ---
Author Organization [facility] Care Team Providers Care Bakery Clerk Name Role Phone Unavailable Primary Care Provider Unavailabl e Encounter Details Date Type Department Care Team (Latest Contact Info) Description 08/16/2009 11:26 AM CDT Hospital Encounter [facility] Janet Frank MD [address] [place] [address] Atrial fibrillation (CMS/HCC) (HCC) Social History Tobacco Use Types Packs/Day Years Used Date Smoking Tobacco: Never Assessed Comments Unknown Sex and Gender Information Value Date Recorded Sex Assigned at Not on file Legal Sex Female 4:20 AM TURBINE ENGINE ASSEMBLER Gender Identity Not on file Sexual [...]
--- OUTSIDE RECORDS SUMMARY | 2024-03-25 11:08 | XMS_ITS | Encounter Summary ---
Author Organization [facility] Facility Care Team Providers Care Livestock Speculator Name Role Phone Unavailable Primary Care Provider Unavailabl e Encounter Details Date Type Department Care Team (Latest Contact Info) Description 05/29/2010 9:01 AM CDT - 06/04/2010 11:59 PM CDT Hospital Encounter [facility] Donaldo French MD [address] [place] [address] Thyrotoxicosis; Nervousness; Atrial fibrillation (CMS/HCC) (HCC) Social History Tobacco Use Types Packs/Day Years Used Date Smoking Tobacco: Never Assessed Comments Unknown Sex and Gender Information Value Date Recorded Sex Assigned at Not on file Legal Sex Female 4:20 AM CABLE ASSEMBLER AND SWAGER Gender Identity Not on file Sexual Orientation [...]
--- OUTSIDE RECORDS SUMMARY | 2024-03-25 11:08 | XMS_ITS | Encounter Summary ---
Author Organization [facility] Address [address] [place] [address] Care Team Providers Care Human Resource Professional Name Role Phone Hermila Calhoun MD, Wilber Martinez Primary Care Provider Ryann Galdamez Primary Care Provider [phone] Ryann Galdamez Primary Care Provider [phone] Chris Mendes MD Unavailable [phone] Keli Orozco RN Unavailable Unavailable Alysa Newton RN Unavailable [phone] Cuba Larsen MD Primary Care Provider [phone] Keli Orozco RN Unavailable Unavailable Keli Orozco RN Unavailable Unavailable Tami Mcknight RN Unavailable Unavailab le Encounter Details Date Type Department Care Team (Late st Contact Info) Description 06/22/2013 Orders Only [facility] Health Information Management [address] [place] [address] Scanning, Provider Social History Tobacco Use Types Packs/Day Years Used Date Smoking Tobacco: Never Assessed Comments Unknown Sex and Gender Information Value Date Recorded Sex Assigned at Not on file 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 Aislinn Goldsmith, INVOICE MACHINE OPERATOR 06/09/2019 06/09/2019 06/09/2019 4:20 PM C DT documented as of this encounter Care Teams Human Resource Professional Relationship Specialty Start Date End Date Wilber Cleaning Jr., MD [address] [place] [address] PCP - General 07/03/16 07/15/20 yRann Galdamez PA [address] [place] [address] PCP - General Jewish History Professor 07/16/20 04/01/21 Ryann Galdamez PA [address] [place] [address] PCP - General Jewish History Professor 04/02/21 01/22/22 Cuba Larsen MD [address] [address] PCP - General Family Medicine 01/23/22 Chris Mendes MD [address] [place] [address] Referring Physician Cardiology 12/23/21 Keli Orozco, turret lathe set up operatorHomicide Investigator Cardiology 12/23/21 04/15/23 Alysa Newton, RN [address] [address] Homicide Investigator Cardiology 12/23/21 Keli Orozco, loading machine tool setter Failure Coordinator 04/02/23 4 Keli Orozco, loading machine tool setter Failure Coordinator Transplant 04/15/23 Tami Mcknight loading machine tool setter Failure Coordinator Cardiology 09/14/23 documented as of this encounter
--- OUTSIDE RECORDS SUMMARY | 2024-03-25 11:08 | XMS_ITS | Encounter Summary ---
Author Organization [facility] Address [address] [place] [address] Phone Care Team Providers Care Commercial Estimator Name Role Phone Hermila Calhoun MD, Wilber Martinez Primary Care Provider Encounter Details Date Type Department Care Team (Latest Contact Info) Description 08/18/2017 Anticoagulation Visit [facility] Medical Office Building [address] [place] [phone] Catarina Huerta MD 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
--- OUTSIDE RECORDS SUMMARY | 2024-03-25 11:08 | XMS_ITS | Encounter Summary ---
Author Organization [facility] Address [address] [place] [address] Care Team Providers Care Hedis Nurse Name Role Phone Hermila Calhoun MD, Wilber Martinez Primary Care Provider Ryann Galdamez Primary Care Provider [phone] Ryann Galdamez Primary Care Provider [phone] Chris Mendes MD Unavailable [phone] Keli Orozco RN Unavailable Unavailable Alysa Newton RN Unavailable [phone] Cuba Larsen MD Primary Care Provider [phone] Keli Orozco RN Unavailable Unavailable Keli Orozco RN Unavailable Unavailable Tami Mcknight RN Unavailable Unavailab le Encounter Details Date Type Department Care Team (Late st Contact Info) Description 04/29/2013 Orders Only [facility] [place] Health Information Management [address] [place] [address] Scanning, Provider Social History Tobacco Use Types Packs/Day Years Used Date Smoking Tobacco: Never Assessed Comments Unknown Sex and Gender Information Value Date Recorded Sex Assigned at Not on file 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 Aislinn Goldsmith, CARPENTRY INSTRUCTOR 06/09/2019 06/09/2019 06/09/2019 4:20 PM C DT documented as of this encounter Care Teams Hedis Nurse Relationship Specialty Start Date End Date Wilber Cleaning Jr., MD [address] [place] [address] PCP - General 07/03/16 07/15/20 Ryann Galdamez PA [address] [place] [address] PCP - General Security Control Center Operator 07/16/20 04/01/21 Ryann Galdamez PA [address] [place] [address] PCP - General Security Control Center Operator 04/02/21 01/22/22 Cuba Larsen MD [address] [address] PCP - General Family Medicine 01/23/22 Chris Mendes MD [address] [place] [address] Referring Physician Cardiology 12/23/21 Keli Orozco, lock setterFood Trades Assistants Cardiology 12/23/21 04/15/23 Alysa Newton, RN [address] [place] [address] Food Trades Assistants Cardiology 12/23/21 Keli Orozco, lard maker Failure Coordinator 04/02/23 4 Keli Orozco, lard maker Failure Coordinator Transplant 04/15/23 Tami Mcknight lard maker Failure Coordinator Cardiology 09/14/23 documented as of this encounter
--- OUTSIDE RECORDS SUMMARY | 2024-03-25 11:08 | XMS_ITS | Encounter Summary ---
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
--- OUTSIDE RECORDS SUMMARY | 2024-03-25 11:08 | XMS_ITS | Encounter Summary ---
Author Organization [facility] Care Team Providers Care Risk Intern Name Role Phone Unavailable Primary Care Provider Unavailabl e Encounter Details Date Type Department Care Team (Latest Contact Info) Description 12/29/2012 2:09 PM CDT Hospital Encounter [facility] Catarina Huerta MD [address] [place] [address] Atrial fibrillation (CMS/HCC) ([facility]) Social History Tobacco Use Types Packs/Day Years Used Date Smoking Tobacco: Never Assessed Comments Unknown Sex and Gender Information Value Date Recorded Sex Assigned at Not on file 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
== END 2024-03-22 14:00 | DRG 308 ==
LOC: ANHED 12:09 → ANH3MEDSUR 14:23 → ANH2MED 16:59
PROVIDERS: Internal Medicine; Physician Assistant; Admitting Provider General Practice; Emergency Provider Physician Assistant; PCP Family Medicine; Visit Provider Nurse Practitioner
DX: I48.20 Chronic atrial fibrillation, unspecified (principal); I50.33 Acute on chronic diastolic (congestive) heart failure; I31.39 Other pericardial effusion (noninflammatory); I38 Endocarditis, valve unspecified; I11.0 Hypertensive heart disease with heart failure; E83.42 Hypomagnesemia; G47.33 Obstructive sleep apnea (adult) (pediatric); E11.9 Type 2 diabetes mellitus without complications; I35.0 Nonrheumatic aortic (valve) stenosis; I34.2 Nonrheumatic mitral (valve) stenosis; E78.5 Hyperlipidemia, unspecified; E03.9 Hypothyroidism, unspecified; D64.9 Anemia, unspecified; F41.1 Generalized anxiety disorder; K76.1 Chronic passive congestion of liver; K21.9 Gastro-esophageal reflux disease without esophagitis; Z66 Do not resuscitate; Z86.711 Personal history of pulmonary embolism; Z79.01 Long term (current) use of anticoagulants; Z86.73 Personal history of transient ischemic attack (TIA), and cerebral infarction without residual deficits; Z90.49 Acquired absence of other specified parts of digestive tract
CPT/HCPCS: 36415; 71045; 71260; 76705; 80053; 80074; 81003; 82274; 82607; 82746; 82948; 83540; 83550; 83735; 83880; 84439; 84443; 84480; 85025; 85610; 85730; 87635; 87637; 93005; 93306; 96365; 96375; 97110; 97161; 97165; 97530; 97535; 99285; A9270; G0378; J1815; J1940; J3475; Q9967

== ENCOUNTER 2024-06-17 11:02 | Emergency (ER) | payer OTHER, SELFPAY ==
--- NOTE | 2024-06-17 11:04 | ED_ITS ---
HPI - Female Genitourinary General Chief complaint: Urogenital-Female Stated complaint: uti symptoms Time Seen by Provider: 06/17/24 11:03 Source: patient Mode of arrival: ambulatory Limitations: no limitations History of Present Illness HPI Narrative: Nereyda is an 84-year-old female patient presenting to the clinic today with complaints of urinary frequency, pressure, and urgency since last night. No known fevers, chills, body aches. She denies any fever, nausea, vomiting, back pain, or abdominal pain. No hematuria Related Data Home Medications ?Medication ?Instructions ?Recorded ?Confirmed ?Last Taken ?Type apixaban 5 mg tablet (Eliquis) 5 mg PO Q12H 06/28/19 03/19/24 12/28/23 History rosuvastatin 20 mg tablet 20 mg PO HS 12/14/19 03/19/24 Unknown History cholecalciferol (vitamin D3) 25 50 mcg PO DAILY 05/12/22 03/19/24 Unknown History mcg (1,000 unit) capsule fluoxetine 20 mg capsule 40 mg PO DAILY 05/12/22 03/19/24 Unknown History glipizide 10 mg tablet 10 mg PO BID 05/12/22 03/19/24 Unknown History spironolactone 25 mg tablet 50 mg PO DAILY 05/12/22 03/19/24 Unknown History acetaminophen 500 mg tablet 1,000 mg PO Q6H PRN Pain (Scale 12/30/23 03/19/24 Unknown History Score 1-3) calcium carbonate (Tums) 400 mg PO Q6H PRN Acid Reflux 12/30/23 03/19/24 Unknown History metformin 500 mg tablet 500 mg PO BIDWMEAL 12/30/23 03/19/24 Unknown History ondansetron 4 mg disintegrating 4 mg PO TID PRN Nausea And Vomiting 02/11/24 03/19/24 Unknown History tablet pantoprazole 40 mg tablet,delayed 40 mg PO BID 02/11/24 03/19/24 Unknown History release (Protonix) alprazolam 0.5 mg tablet 0.5 mg PO BID 03/19/24 03/19/24 Unknown History loratadine 10 mg tablet (Claritin) 10 mg PO DAILY 03/19/24 03/19/24 Unknown History sucralfate 1 gram tablet 1 g PO ACHS 03/19/24 03/19/24 Unknown History Allergies Allergy/AdvReac Type Severity Reaction Status Date / Time amlodipine AdvReac Intermediate Difficulty Verified 06/17/24 11:09 Breathing atorvastatin AdvReac Intermediate Muscle Pain Verified 06/17/24 11:09 hydrochlorothiazide AdvReac Intermediate Dizziness Verified 06/17/24 11:09 MILI Inhibitors AdvReac Mild cough Verified 06/17/24 11:09 citalopram AdvReac Mild Unknown Verified 06/17/24 11:09 lisinopril AdvReac Mild cough Verified 06/17/24 11:09 Review of Systems Review of Systems: Pertinent positives per HPI. Patient denies any fever, chills, rash, headache, visual changes, dizziness, cough, runny nose, sore throat, shortness of breath, chest pain, palpitations, nausea, vomiting, diarrhea, constipation, abdominal pain. 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) Obstructive sleep apnea on CPAP Heart failure with preserved ejection fraction Chronic anticoagulation Pulmonary embolus Anxiety Zenkers diverticulum Chronic atrial fibrillation Gastro-esophageal reflux disease without esophagitis Generalized anxiety disorder Mixed hyperlipidemia Type 2 diabetes mellitus without complications Surgical History Surgical History History of open reduction and internal fixation (ORIF) procedure repair left femur fracture History of hysterectomy History of hip surgery History of cholecystectomy History of tonsillectomy Family History Family History Father Family history of cardiovascular disease Family history of coronary artery disease Depression Mother Family history of cardiovascular disease Family history of coronary artery disease Grandparent Cerebrovascular accident Social History Social History Social History: Surrogate medical decision maker: Homer Culp, son. Code status: Do not resuscitate. Smoking status: Never smoker Second hand tobacco smoke exposure: Yes Alcohol intake: never Substance use: never Substance use type: does not use Do You Feel Safe in your Home?: No Lack of Transportation: No Lack of Food: Never True Current Housing: I Have Housing Concerned About Future Housing: No Difficulty Paying Gas/Electric Bills: No Difficulty Paying for Meds: No Currently Unemployed: No Education: High School Diploma/GED Difficulty w/ Childcare or Family Care: No Additional living arrangements comments: . Lives in assisted living at [facility]. Spiritual care concerns: No Comments At the time of my signature, I reviewed and agree with the nursing past medical, surgical, social, and family history. There is no relevant family history pertinent to the patient complaint. Exam Narrative: General: Well-developed, well nourished, in no apparent distress. Head: Normocephalic, atraumatic. Cardio: Regular rate and rhythm, s1 and s2 normal, no murmur appreciated. Resp: Clear to auscultation bilaterally, no rhonchi, rales, wheezing or rubs. Abdomen: Soft, pliable, bowel sounds present in all quadrants, non-tender to palpation, no organomegly, no CVAT tenderness. Course Course Emergency Course: Portions of this record may have been created with voice recognition software. Level of Care: Express Care Visit Vital Signs Vital signs: Vital Signs Temperature 36.3 C L 06/17/24 11:20 Pulse Rate 58 L 06/17/24 11:20 Respiratory Rate 16 06/17/24 11:20 Blood Pressure 153/102 H 06/17/24 11:20 Pulse Oximetry 99 06/17/24 11:20 Oxygen Delivery Room Air 06/17/24 11:20 Temperature 36.3 C L 06/17/24 11:20 Pulse Rate 58 L 06/17/24 11:20 Respiratory Rate 16 06/17/24 11:20 Blood Pressure 153/102 H 06/17/24 11:20 Pulse Oximetry 99 06/17/24 11:20 Oxygen Delivery Room Air 06/17/24 11:20 Vital signs reviewed MDM - Female Genitourinary MDM Narrative Medical decision making narrative: At the time of visit patient is resting comfortably on the exam table. Patient appears to be nontoxic. Labs: Urinalysis shows 1+ protein and trace of blood. No leukocytes or nitrates. We will send urine for culture Plan: I suspect patient has UTI symptoms. Supportive measures were discussed with the patient and they voiced understanding discharge instructions and agrees to treatment plan. Return precautions reviewed Differential Diagnosis Differential diagnosis: Likely urinary tract infection, cystitis and other (Overactive bladder, medications causing frequent urination) Lab Data Labs: Lab Results 06/17/24 Range/Units 11:31 POC Urine Color Yellow POC Urine Clarity Clear POC Urine pH 7.5 POC Ur Specif [place] 1.020 POC Urine Protein 1+ (Negative) POC Ur Glucose (UA) Negative (Negative) POC Urine Ketones Negative (Negative) POC Urine Blood Trace (Negative) POC Urine Nitrite Negative (Negative) POC Urine Bilirubin Negative (Negative) POC Urine Urobilinogen 1.0 POC U Leukocyte Esteras Negative (Negative) Discharge Plan Discharge Clinical Impression: Symptoms of urinary tract infection Patient Disposition: Home, Self-Care Condition: Stable Instructions: Antibiotic Form, Urinary Urgency and Frequency (DC) Additional Instructions: Urinalysis is positive for protein 1+ and trace of blood. Negative for leukocytes or nitrates. We will send urine for culture. Increase fluids and stay well hydrated Wipe front to back. May use wet wipes. Avoid tub baths Wear cotton panties Avoid tight clothing up against the genitals Follow up with your PCP in 1 week if symptoms persist. Patient Language: Russian Prescriptions: No Action glipizide 10 mg tablet 10 mg PO BID spironolactone 25 mg tablet 50 mg PO DAILY fluoxetine 20 mg capsule 40 mg PO DAILY cholecalciferol (vitamin D3) 25 mcg (1,000 unit) Capsule 50 mcg PO DAILY Eliquis 5 mg tablet 5 mg PO Q12H rosuvastatin 20 mg tablet 20 mg PO HS acetaminophen 500 mg Tablet 1,000 mg PO Q6H PRN (Reason: Pain (Scale Score 1-3)) metformin 500 mg Tablet 500 mg PO BIDWMEAL calcium carbonate [Tums] 200 mg calcium (500 mg) Tablet,Chewable 400 mg PO Q6H PRN (Reason: Acid Reflux) famotidine 20 mg tablet 20 mg PO DAILY Qty: 30 0RF ondansetron 4 mg tablet,disintegrating 4 mg PO Q8H PRN (Reason: nausea and vomiting) Qty: 10 0RF fluticasone propionate [Allergy Relief (fluticasone)] 50 mcg/actuation spray,suspension 1 spray intranasal DAILY Qty: 16 0RF Rx Instructions: administer into each nostril guaifenesin [Mucinex] 600 mg tablet extended release 12hr 600 mg PO BID PRN (Reason: congestion) Qty: 30 0RF pantoprazole [Protonix] 40 mg Tablet,Delayed Release (Dr/Ec) 40 mg PO BID ondansetron 4 mg Tablet,Disintegrating 4 mg PO TID PRN (Reason: Nausea And Vomiting) polyethylene glycol 3350 [Miralax] 17 gram Powder In Packet 17 g PO QAM Qty: 30 0RF methocarbamol 750 mg Tablet 750 mg PO TID 14 Days Qty: 42 0RF alprazolam 0.5 mg tablet 0.5 mg PO BID loratadine [Claritin] 10 mg tablet 10 mg PO DAILY sucralfate 1 gram tablet 1 g PO ACHS metoprolol succinate 50 mg tablet extended release 24 hr 75 mg PO BID Qty: 60 0RF levothyroxine [Synthroid] 25 mcg tablet 50 mcg PO DAILY Qty: 180 1RF Follow-up/Referrals: UNKNOWN,DOCTOR [Non-Staff] - Time of Disposition: 11:38 Quality NIHSS Nursing Documentation ED NIHSS nursing documentation: reviewed/agree
[2024-06-17 11:20] VITALS: BP 153/102; PULSE 58; RESP 16; TEMP 36.3; O2SAT 99
[2024-06-17 11:33] LABS: EDUAAPPEAR Clear; EDUABILI Negative (Negative); EDUABLOOD Trace (Negative); EDUACOLOR1 Yellow; EDUAGLUCOSE Negative (Negative); EDUAKETONE Negative (Negative); EDUALEUKO Negative (Negative); EDUANITRATE Negative (Negative); EDUAPH 7.5; EDUAPROTEIN 1+ (Negative)
--- OUTSIDE RECORDS SUMMARY | 2024-06-17 11:35 | XMS_ITS | Encounter Summary ---
Author Organization [facility] Address [address] [place] [address] Care Team Providers Care Workday Consultant Name Role Phone Hermila Calhoun MD, Wilber Martinez Primary Care Provider Ryann Galdamez Primary Care Provider [phone] Ryann Galdamez Primary Care Provider [phone] Chris Mendes MD Unavailable [phone] Keli Orozco RN Unavailable Unavailable Alysa Newton RN Unavailable [phone] Cuba Larsen MD Primary Care Provider [phone] Keli Orozco RN Unavailable Unavailable Keli Orozco RN Unavailable Unavailable Tami Mcknight RN Unavailable Unavailab le Encounter Details Date Type Department Care Team (Late st Contact Info) Description 04/29/2013 [place] Only [facility] [place] Management [address] [place] [address] Scanning, Provider Social History Tobacco Use Types Packs/Day Years Used Date Smoking Tobacco: Never Assessed Comments Unknown Sex and Gender Information Value Date Recorded Sex Assigned at Not on file 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 Aislinn Goldsmith, POSTAL TRANSPORTATION CLERK 06/09/2019 06/09/2019 06/09/2019 4:20 PM C DT documented as of this encounter Care Teams Workday Consultant Relationship Specialty Start Date End Date Wilber Cleaning Jr., MD [address] [place] [address] PCP - General 07/03/16 07/15/20 Ryann Galdamez PA [address] [email or web address] [address] PCP - General Fire Extinguisher Inspector 07/16/20 04/01/21 Ryann Galdamez PA [address] [email or web address] [address] PCP - General Fire Extinguisher Inspector 04/02/21 01/22/22 Cuba Larsen MD [address] [address] PCP - General Family Medicine 01/23/22 Chris Mendes MD [address] [email or web address] [address] Referring Physician Cardiology 12/23/21 Keli Orozco, lumber sorterPharmacy Salesperson Cardiology 12/23/21 04/15/23 Alysa Newton, ARMANI [address] [place] [address] Pharmacy Salesperson Cardiology 12/23/21 Keli Orozco, technical illustrator Failure Coordinator 04/02/23 4 Keli Orozco, technical illustrator Failure Coordinator Transplant 04/15/23 Tami Mcknight technical illustrator Failure Coordinator Cardiology 09/14/23 documented as of this encounter
--- OUTSIDE RECORDS SUMMARY | 2024-06-17 11:35 | XMS_ITS | Encounter Summary ---
Author Organization [facility] Address [address] [place] [address] Phone Care Team Providers Care Airdrop Systems Technician Name Role Phone Hermila Calhoun MD, Wilber Martinez Primary Care Provider Ryann Galdamez Primary Care Provider [phone] Ryann Galdamez Primary Care Provider [phone] Chris Mendes MD Unavailable [phone] Keli Orozco RN Unavailable Unavailable Alysa Newton RN Unavailable [phone] Cuba Larsen MD Primary Care Provider [phone] Keli Orozco RN Unavailable Unavailable Keli Orozco RN Unavailable Unavailable Tami Mcknight RN Unavailable Unavailab le Encounter Details Date Type Department Care Team (Latest Contact Info) Description 1941 Orders Only [facility] CARDIOLOGY Margartia Méndez RN Social History Tobacco Use Types Packs/Day Years Used Date Smoking Tobacco: Never Assessed Comments Unknown Sex and Gender Information Value Date Recorded Sex Assigned at Not on file 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 Aislinn Goldsmith, QUALITY ASSURANCE SUPERVISOR FINAL 06/09/2019 06/09/2019 06/09/2019 4:20 PM C DT documented as of this encounter Care Teams Airdrop Systems Technician Relationship Specialty Start Date End Date Wilber Cleaning Jr., MD [address] [place] [address] PCP - General 07/03/16 07/15/20 Ryann Galdamez PA [address] [place] [address] PCP - General Freight Engineer 07/16/20 04/01/21 Ryann Galdamez PA [address] [place] [address] PCP - General Freight Engineer 04/02/21 01/22/22 Cuba Larsen MD [address] [address] PCP - General Family Medicine 01/23/22 Chris Mendes MD [address] [place] [address] Referring Physician Cardiology 12/23/21 Keli Orozco, director of cateringTechnology Program Manager Cardiology 12/23/21 04/15/23 Alysa Newton, RN [address] [facility] [address] [place] [address] Technology Program Manager Cardiology 12/23/21 Keli Orozco, resource center teacher Failure Coordinator 04/02/23 4 Keli Orozco, resource center teacher Failure Coordinator Transplant 04/15/23 Tami Mcknight resource center teacher Failure Coordinator Cardiology 09/14/23 documented as of this encounter
--- OUTSIDE RECORDS SUMMARY | 2024-06-17 11:35 | XMS_ITS | Encounter Summary ---
Author Organization [facility] Medical [facility] Address [address] [place] [address] Care Team Providers Care Taxicab Driver Name Role Phone Hermila Calhoun MD, Wilber Martinez Primary Care Provider Ryann Galdamez Primary Care Provider [phone] Ryann Galdamez Primary Care Provider [phone] Chris Mendes MD Unavailable Keli Orozco RN Unavailable Unavailable Alysa Newton RN Unavailable [phone] Cuba Larsen MD Primary Care Provider Keli Orozco RN Unavailable Unavailable Keli Orozco RN Unavailable Unavailable Tami Mcknight RN Unavailable Unavailab le Encounter Details Date Type Department Care Team (Late st Contact Info) Description 07/03/2016 Orders Only [facility] [place] Health Information Management [address] [place] [address] Scanning, Provider Social History Tobacco Use Types Packs/Day Years Used Date Smoking Tobacco: Never Assessed Comments Unknown Sex and Gender Information Value Date Recorded Sex Assigned at Not on file 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 Aislinn Goldsmith, ORDER PROCESSOR 06/09/2019 06/09/2019 06/09/2019 4:20 PM C DT documented as of this encounter Care Teams Taxicab Driver Relationship Specialty Start Date End Date Wilber Cleaning Jr., MD [address] [place] [address] PCP - General 07/03/16 07/15/20 Ryann Galdamez PA [address] [place] [address] PCP - General Communication Equipment Mechanic 07/16/20 04/01/21 Ryann Galdamez PA [address] [place] [address] PCP - General Communication Equipment Mechanic 04/02/21 01/22/22 Cuba Larsen MD [address] [facility] [address] [place] [address] PCP - General Family Medicine 01/23/22 Chris Mendes MD [address] [place] [address] Referring Physician Cardiology 12/23/21 Keli Orozco, cabinet installerConcrete Layer Cardiology 12/23/21 04/15/23 Alysa Newton, RN [address] [facility] [address] [place] [address] Concrete Layer Cardiology 12/23/21 Keli Orozco, cnc set up operator Failure Coordinator 04/02/23 4 Keli Orozco, cnc set up operator Failure Coordinator Transplant 04/15/23 Tami Mcknight cnc set up operator Failure Coordinator Cardiology 09/14/23 documented as of this encounter
--- OUTSIDE RECORDS SUMMARY | 2024-06-17 11:35 | XMS_ITS | Encounter Summary ---
Author Organization [facility] Healthcare Address [address] [place] [address] Care Team Providers Care Link Machine Operator Name Role Phone Ryann Galdamez Primary Care Provider [phone] Ryann Galdamez Primary Care Provider [phone] Chris Mendes MD Unavailable [phone] Keli Orozco RN Unavailable Unavailable Alysa Newton RN Unavailable Cuba Larsen MD Primary Care Provider [phone] Keli Orozco RN Unavailable Unavailable Keli Orozco RN Unavailable Unavailable Tami Mcknight RN Unavailable Unavailab le Encounter Details Date Type Department Care Team (Late st Contact Info) Description 08/17/2020 Telephone [facility] [address] [place] [address] Araceli Arita, RT Social History [...] file 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 Gender Identity Not on file Sexual Orientation Not on file documented as of this encounter Plan of Treatment Not on file documented as of this encounter Visit Diagnoses Not on filedocumented in this encounter Care Teams Link Machine Operator Relationship Specialty Start Date End Date Ryann Galdamez PA PCP - General Supervisor Mails 07/16/20 04/01/21 Ryann Galdamez PA PCP - General Supervisor Mails 04/02/21 01/22/22 Cuba Larsen MD [address] [address] PCP - General Family Medicine 01/23/22 Chris Mendes MD Referring Physician Cardiology 12/23/21 Keli Orozco, public relations playerFolder Machine Adjuster Cardiology 12/23/21 04/15/23 Alysa Newton, RN [address] [address] Folder Machine Adjuster Cardiology 12/23/21 Keli Orozco, take down sorter Failure Coordinator 04/02/23 4 Keli Orozco, take down sorter Failure Coordinator Transplant 04/15/23 Tami Mcknight RN Heart Failure Coordinator Cardiology 09/14/23 documented as of this encounter
--- OUTSIDE RECORDS SUMMARY | 2024-06-17 11:35 | XMS_ITS | Encounter Summary ---
Author Organization [facility] Medical [facility] Address [address] [place] [address] Care Team Providers Care Manager Trust Name Role Phone Hermila Calhoun MD, Wilebr Martinez Primary Care Provider Ryann Galdamez Primary Care Provider [phone] Ryann Galdamez Primary Care Provider [phone] Chris Mendes MD Unavailable [phone] Keli Orozco RN Unavailable Unavailable Alysa Newton RN Unavailable [phone] Cuba Larsne MD Primary Care Provider [phone] Keli Orozco RN Unavailable Unavailable Keli Orozco RN Unavailable Unavailable Tami Mcknight RN Unavailable Unavailab le Encounter Details Date Type Department Care Team (Late st Contact Info) Description 02/01/2016 Orders Only [facility] [place] Health Information Management [address] [place] [address] Scanning, Provider Social History Tobacco Use Types Packs/Day Years Used Date Smoking Tobacco: Never Assessed Comments Unknown Sex and Gender Information Value Date Recorded Sex Assigned at Not on file 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 Aislinn Goldsmith, BIOLOGICAL ENGINEER 06/09/2019 06/09/2019 06/09/2019 4:20 PM C DT documented as of this encounter Care Teams Manager Trust Relationship Specialty Start Date End Date Wilber Cleaning Jr., MD [address] [place] [address] PCP - General 07/03/16 07/15/20 Ryann Galdamez PA [address] [place] [address] PCP - General Commercial Census Taker 07/16/20 04/01/21 Ryann Galdamez PA [address] [place] [address] PCP - General Commercial Census Taker 04/02/21 01/22/22 Cuba Larsen MD [address] [address] PCP - General Family Medicine 01/23/22 Chris Mendes MD [address] [place] [address] Referring Physician Cardiology 12/23/21 Keli Orozco, acid blowerStem Dryer Maintainer Cardiology 12/23/21 04/15/23 Alysa Newton, RN [address] [address] Stem Dryer Maintainer Cardiology 12/23/21 Keli Orozco, farm equipment engine mechanic Failure Coordinator 04/02/23 4 Keli Orozco, farm equipment engine mechanic Failure Coordinator Transplant 04/15/23 Tami Mcknight farm equipment engine mechanic Failure Coordinator Cardiology 09/14/23 documented as of this encounter
--- OUTSIDE RECORDS SUMMARY | 2024-06-17 11:35 | XMS_ITS | Encounter Summary ---
Author Organization [facility] Address [address] [place] [address] Phone Care Team Providers Care Inventory Control Associate Name Role Phone Ryann Galdamez Primary Care Provider [phone] Chris Mendes MD Unavailable Keli Orozco RN Unavailable Unavailable Alysa Newton RN Unavailable [phone] Cuba Larsen MD Primary Care Provider [phone] Keli Orozco RN Unavailable Unavailable Keli Orozco RN Unavailable Unavailable Tami Mcknight RN Unavailable Unavailab le Encounter Details Date Type Department Care Team (Late st Contact Info) Description 06/24/2021 Telephone [facility] Cardiology [address] [place] [address] [place] [address] Chris Mendes MD [address] [address] Social History Tobacco Use Types [...] on filedocumented in this encounter Care Teams Inventory Control Associate Relationship Specialty Start Date End Date Ryann Galdamez PA PCP - General Conveyor Line Bakery Worker 04/02/21 01/22/22 Cuba Larsen MD [address] [address] PCP - General Family Medicine 01/23/22 Chris Mendes MD Referring Physician Cardiology 12/23/21 Keli Orozco, demi chefFood Preparer Cardiology 12/23/21 04/15/23 Alysa Newton, RN [address] [address] Food Preparer Cardiology 12/23/21 Keli Orozco, sheet ironworker Failure Coordinator 04/02/23 4 Keli Orozco, sheet ironworker Failure Coordinator Transplant 04/15/23 Tami Mcknight sheet ironworker Failure Coordinator Cardiology 09/14/23 documented as of this encounter
--- OUTSIDE RECORDS SUMMARY | 2024-06-17 11:35 | XMS_ITS | Encounter Summary ---
Author Organization [facility] Address [address] [place] [address] Care Team Providers Care Educational Adviser Name Role Phone Hermila Calhoun MD, Wilber Martinez Primary Care Provider Ryann Galdamez Primary Care Provider [phone] Ryann Galdamez Primary Care Provider [phone] Chris Mendes MD Unavailable [phone] Keli Orozco RN Unavailable Unavailable Alysa Newton RN Unavailable [phone] Cuba Larsen MD Primary Care Provider [phone] Keli Orozco RN Unavailable Unavailable Keli Orozco RN Unavailable Unavailable Tami Mcknight RN Unavailable Unavailab le Encounter Details Date Type Department Care Team (Late st Contact Info) Description 06/22/2013 Orders Only [facility] Management [address] [place] [address] Scanning, Provider Social History Tobacco Use Types Packs/Day Years Used Date Smoking Tobacco: Never Assessed Comments Unknown Sex and Gender Information Value Date Recorded Sex Assigned at Not on file 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 Aislinn Goldsmith, SITE SURVEYOR 06/09/2019 06/09/2019 06/09/2019 4:20 PM C DT documented as of this encounter Care Teams Educational Adviser Relationship Specialty Start Date End Date Wilber Cleaning Jr., MD [address] [place] [address] PCP - General 07/03/16 07/15/20 Ryann Galdamez PA [address] [place] [address] PCP - General Advertising Representative 07/16/20 04/01/21 Ryann Galdamez PA [address] [place] [address] PCP - General Advertising Representative 04/02/21 01/22/22 Cuba Larsen MD [address] [address] PCP - General Family Medicine 01/23/22 Chris Mendes MD [address] [place] [address] Referring Physician Cardiology 12/23/21 Keli Orozco, check writer salespersonGravel Hauler Cardiology 12/23/21 04/15/23 Alysa Newton, RN [address] [address] Gravel Hauler Cardiology 12/23/21 Keli Orozco, marketing traffic coordinator Failure Coordinator 04/02/23 4 Keli Orozco, marketing traffic coordinator Failure Coordinator Transplant 04/15/23 Tami Mcknight marketing traffic coordinator Failure Coordinator Cardiology 09/14/23 documented as of this encounter
--- OUTSIDE RECORDS SUMMARY | 2024-06-17 11:35 | XMS_ITS | Encounter Summary ---
Author Organization [facility] Address [address] [place] [address] Care Team Providers Care Rod Machine Operator Name Role Phone Hermila Calhoun MD, Wilber Martinez Primary Care Provider Ryann Galdamez Primary Care Provider [phone] Ryann Galdamez Primary Care Provider [phone] Chris Mendes MD Unavailable [phone] Keli Orozco RN Unavailable Unavailable Alysa Newton RN Unavailable [phone] Cuba Larsen MD Primary Care Provider [phone] Keli Orozco RN Unavailable Unavailable Keli Orozco RN Unavailable Unavailable Tami Mcknight RN Unavailable Unavailab le Encounter Details Date Type Department Care Team (Late st Contact Info) Description 04/27/2013 Orders Only [facility] Health Information Management [address] [place] [address] Scanning, Provider Social History Tobacco Use Types Packs/Day Years Used Date Smoking Tobacco: Never Assessed Comments Unknown Sex and Gender Information Value Date Recorded Sex Assigned at Not on file 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 Aislinn Goldsmith, PIPE FITTER 06/09/2019 06/09/2019 06/09/2019 4:20 PM C DT documented as of this encounter Care Teams Rod Machine Operator Relationship Specialty Start Date End Date Wilber Cleaning Jr., MD [address] [place] [address] PCP - General 07/03/16 07/15/20 Ryann Galdamez PA [address] [place] [address] PCP - General Shoe Parts Caser 07/16/20 04/01/21 Ryann Galdamez PA [address] [place] [address] PCP - General Shoe Parts Caser 04/02/21 01/22/22 Cuba Larsen MD [address] [address] PCP - General Family Medicine 01/23/22 Chris Mendes MD [address] [place] [address] Referring Physician Cardiology 12/23/21 Keli Orozco, regional economic liaisonCorporate Associate Cardiology 12/23/21 04/15/23 Alysa Newton, RN [address] [address] Corporate Associate Cardiology 12/23/21 Keli Orozco, english drawer Failure Coordinator 04/02/23 4 Keli Orozco, english drawer Failure Coordinator Transplant 04/15/23 Tami Mcknight english drawer Failure Coordinator Cardiology 09/14/23 documented as of this encounter
--- OUTSIDE RECORDS SUMMARY | 2024-06-17 11:35 | XMS_ITS | Encounter Summary ---
Author Organization [facility] Address [address] [place] [address] Phone Care Team Providers Care Area Development Consultant Name Role Phone Hermila Calhoun MD, Wilber Martinez Primary Care Provider Ryann Galdamez Primary Care Provider [phone] Ryann Galdamez Primary Care Provider [phone] Chris Mendes MD Unavailable [phone] Keli Orozco RN Unavailable Unavailable Alysa Newton RN Unavailable [phone] Cuba Larsen MD Primary Care Provider [phone] Keli Orozco RN Unavailable Unavailable Keli Orozco RN Unavailable Unavailable Tami Mcknight RN Unavailable Unavailab le Encounter Details Date Type Department Care Team (Late st Contact Info) Description 06/13/2019 Telephone [facility] Cardiology [address] 8[address] [place] [address] [place] [address] Cathleen Walker MD [address] [facility] [address] [place] [address] Social History Tobacco Use Types Packs/Day Years Used Date Smoking Tobacco: Never Smokeless Tobacco: Never Alcohol Use Standard Drinks/Week Comments Yes 0 (1 standard drink = 0.6 oz pur e alcohol) 1/mo Comments No Sex and Gender Information Value Date Recorded Sex Assigned at Not on file 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 Gender Identity Not on file Sexual Orientation [...] on filedocumented in this encounter Care Teams Area Development Consultant Relationship Specialty Start Date End Date Wilber Cleaning Jr., MD [address] [place] [address] PCP - General 07/03/16 07/15/20 Ryann Galdamez PA [address] [place] [address] PCP - General Route Specialist 07/16/20 04/01/21 Ryann Galdamez PA [address] [place] [address] PCP - General Route Specialist 04/02/21 01/22/22 Cuba Larsen MD [address] [address] PCP - General Family Medicine 01/23/22 Chris Mendes MD [address] [place] [address] Referring Physician Cardiology 12/23/21 Keli Orozco RN Filling Station Equipment Mechanic Cardiology 12/23/21 04/15/23 Alysa Newton, RN [address] [facility] [address] [place] [address] Filling Station Equipment Mechanic Cardiology 12/23/21 Keli Orozco, rotor casting machine operator Failure Coordinator 04/02/23 4 Keli Orozco, rotor casting machine operator Failure Coordinator Transplant 04/15/23 Tami Mcknight, rotor casting machine operator Failure Coordinator Cardiology 09/14/23 documented as of this encounter
--- OUTSIDE RECORDS SUMMARY | 2024-06-17 11:35 | XMS_ITS | Encounter Summary ---
Author Organization [facility] Address [address] [place] [address] Care Team Providers Care Director Communications Name Role Phone Hermila Calhoun MD, Wilber Martinez Primary Care Provider Ryann Galdamez Primary Care Provider [phone] Ryann Galdamez Primary Care Provider [phone] Chris Mendes MD Unavailable [phone] Keli Orozco RN Unavailable Unavailable Alysa Newton RN Unavailable [phone] Cuba Larsen MD Primary Care Provider [phone] Keli Orozco RN Unavailable Unavailable Keli Orozco RN Unavailable Unavailable Tami Mcknight RN Unavailable Unavailab le Encounter Details Date Type Department Care Team (Late st Contact Info) Description 10/17/2015 Orders Only [facility] [place] Health Information Management [address] [place] [address] Scanning, Provider Social History Tobacco Use Types Packs/Day Years Used Date Smoking Tobacco: Never Assessed Comments Unknown Sex and Gender Information Value Date Recorded Sex Assigned at Not on file 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 Aislinn Goldsmith, SLEEVE FIXER 06/09/2019 06/09/2019 06/09/2019 4:20 PM C DT documented as of this encounter Care Teams Director Communications Relationship Specialty Start Date End Date Wilber Cleaning Jr., MD [address] [place] [address] PCP - General 07/03/16 07/15/20 Ryann Galdamez PA [address] [place] [address] PCP - General Agate Setter 07/16/20 04/01/21 Ryann Galdamez PA [address] [place] [address] PCP - General Agate Setter 04/02/21 01/22/22 Cuba Larsen MD [address] [address] PCP - General Family Medicine 01/23/22 Chris Mendes MD [address] [place] [address] Referring Physician Cardiology 12/23/21 Keli Orozco, helper teacherToy Parts Former Supervisor Cardiology 12/23/21 04/15/23 Alysa Newton, RN [address] [address] Toy Parts Former Supervisor Cardiology 12/23/21 Keli Orozco, leverman Failure Coordinator 04/02/23 4 Keli Orozco, leverman Failure Coordinator Transplant 04/15/23 Tami Mcknight leverman Failure Coordinator Cardiology 09/14/23 documented as of this encounter
--- OUTSIDE RECORDS SUMMARY | 2024-06-17 11:35 | XMS_ITS | Encounter Summary ---
Author Organization [facility] Address [address] [place] [address] Care Team Providers Care Solar Fabrication Technician Name Role Phone Hermila Calhoun MD, Wilber Martinez Primary Care Provider Ryann Galdamez Primary Care Provider [phone] Ryann Galdamez Primary Care Provider [phone] Chris Mendes MD Unavailable [phone] Keli Orzoco RN Unavailable Unavailable Alysa Newton RN Unavailable [phone] Cuba Larsen MD Primary Care Provider [phone] Keli Orozco RN Unavailable Unavailable Keli Orozco RN Unavailable Unavailable Tami Mcknight RN Unavailable Unavailab le Encounter Details Date Type Department Care Team (Late st Contact Info) Description 08/04/2014 Orders Only [facility] [place] Health Information Management [address] [place] [address] Scanning, Provider Social History Tobacco Use Types Packs/Day Years Used Date Smoking Tobacco: Never Assessed Comments Unknown Sex and Gender Information Value Date Recorded Sex Assigned at Not on file Legal Sex Female 4:20 AM PUBLIC HEALTH ADVISOR Gender Identity Not on file Sexual [...] pt afebrile, without URI signs/symptoms. Aislinn Goldsmith, CARTOGRAPHIC AIDE 06/09/2019 06/09/2019 06/09/2019 4:20 PM C DT documented as of this encounter Care Teams Solar Fabrication Technician Relationship Specialty Start Date End Date Wilber Cleaning Jr., MD [address] [place] [address] PCP - General 07/03/16 07/15/20 Ryann Galdamez PA [address] [place] [address] PCP - General Car Construction Superintendent 07/16/20 04/01/21 Ryann Galdamez PA [address] [place] [address] PCP - General Car Construction Superintendent 04/02/21 01/22/22 Cuba Larsen MD [address] [address] PCP - General Family Medicine 01/23/22 Chris Mendes MD [address] [place] [address] Referring Physician Cardiology 12/23/21 Keli Orozco, compensation/benefits specialistReal Estate Agent Cardiology 12/23/21 04/15/23 Alysa Newton, RN [address] [address] Real Estate Agent Cardiology 12/23/21 Keli Orozco, funeral arrangement director Failure Coordinator 04/02/23 4 Keli Orozco, funeral arrangement director Failure Coordinator Transplant 04/15/23 Tami Mcknight funeral arrangement director Failure Coordinator Cardiology 09/14/23 documented as of this encounter
--- OUTSIDE RECORDS SUMMARY | 2024-06-17 11:35 | XMS_ITS | Encounter Summary ---
Author Organization [facility] Address [address] [place] [address] Care Team Providers Care Orthopaedic Technologist Name Role Phone Chris Mendes MD Unavailable [phone] Cuba Larsen MD Primary Care Provider [phone] Keli Orozco RN Unavailable Unavailable Tami Mcknight RN Unavailable Unavailab le Reason for Visit * Reason Onset Date Comments Symptom Based Call 06/13/2024 Encounter Details Date Type Department Care Team (Late st Contact Info) Description 06/13/2024 Telephone [facility] Family Medicine at [address] [place] [address] Cuba Larsen MD [address] [place] [address] Symptom Based Call Social History Tobacco Use Types Packs/Day Years Used Date Smoking Tobacco: Never Smokeless Tobacco: Never Alcohol Use Standard Drinks/Week Comments Yes 0 (1 standard drink = 0.6 oz pur e alcohol) 1/mo AUDIT-C Answer Date Recorded Q1: How often do you have a drink containing alcohol? Monthly or less 06/06/2024 Q2: How many drinks containi ng alcohol do you have on a typical day when you are drinking? Patient does not drink Q3: How often do you have si x or more drinks on one occasion? Never 06/06/2024 PHQ-2 Answer Date Recorded PHQ-2 Total Score (If total score is 3 or more points, staff should administer the PHQ-9) 0 11/03/2023 PHQ-9 Answer Date Recorded PHQ-9 Total Score 12 09/02/2023 Personal Safety Answer Date Recorded Have you ever been in or are you currently in a harmful physical or emotional relationship or is someone making you feel afraid or unsafe? 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 No Known fevers, No additional symptoms Duration: x 1 week What type of symptom(s) is the patient experiencing? Non-Emergent. Is this a new or reoccurring symptom(s)? New What have you tried to help your symptom(s)? Musinex, OTC Allergy Relief, Vicks' Vaporizer at Night Why was appointment not scheduled? Patient seeking care without an appointment; appointment was offered by . Additional Comments: patient's son Elio is requesting Providers Rx recommendations to help resolvepatients symptoms.Pharmacy on file verified. Call back needed please. Does message need to be routed? Yes-Action Needed documented in this encounter Plan of Treatment Not on file documented as of this encounter Visit Diagnoses Not on filedocumented in this encounter Care Teams Orthopaedic Technologist Relationship Specialty Start Date End Date Cuba Larsen MD PCP - General Family Medicine 01/23/22 Chris Mendes MD Referring Physician Cardiology 12/23/21 Keli Orozco, quality improvement engineer Failure Coordinator Transplant 04/15/23 Tami Mcknight, quality improvement engineer Failure Coordinator Cardiology 09/14/23 documented as of this encounter
--- OUTSIDE RECORDS SUMMARY | 2024-06-17 11:35 | XMS_ITS | Encounter Summary ---
Author Organization [facility] Address [address] [place] [address] Care Team Providers Care Piecer Up Name Role Phone Chris Mendes MD Unavailable [phone] Cuba Larsen MD Primary Care Provider [phone] Keli Orozco RN Unavailable Unavailable Tami Mcknight RN Unavailable Unavailab le Reason for Visit * Reason Comments Chart Review [facility] est pt Encounter Details Date Type Department Care Team (Late st Contact Info) Description 06/17/2024 ACO Quality [facility] Accountable Care Organization [address] [place] [address] Gela Lin MA [address] [place] [address] [address] [place] [address] Social History Tobacco Use Types Packs/Day Years [...] file Legal Sex Female 4:20 AM HUMAN RESOURCES COORDINATOR Gender Identity Not on file Sexual Orientation Not on file documented as of this encounter Progress Notes * Gela Lin MA - 06/17/2024 6:14 AM CDT This patient has been identified by [facility] as needing an Established . Pt has been not been contacted by phone. Pt appointment completed 05/10/24 Gela Mejia [facility] Patient Outreach License Clerk [facility] ACO [phone] documented in this encounter Plan of Treatment Not on file documented as of this encounter Visit Diagnoses Not on filedocumented in this encounter Care Teams Piecer Up Relationship Specialty Start Date End Date Cuba Larsen MD PCP - General Family Medicine 01/23/22 Chris Mendes MD Referring Physician Cardiology 12/23/21 Keli Orozco, sales operations assistant Failure Coordinator Transplant 04/15/23 Tami Mcknight, sales operations assistant Failure Coordinator Cardiology 09/14/23 documented as of this encounter
--- OUTSIDE RECORDS SUMMARY | 2024-06-17 11:35 | XMS_ITS | Encounter Summary ---
Author Organization [facility] Address [address] [place] [address] Care Team Providers Care Automatic Spinning Lathe Operator Name Role Phone Hermila Calhoun MD, Wilber Martinez Primary Care Provider Ryann Galdamez Primary Care Provider [phone] Ryann Galdamez Primary Care Provider [phone] Chris Mendes MD Unavailable [phone] Keli Orozco RN Unavailable Unavailable Alysa Newton RN Unavailable [phone] Cuba Larsen MD Primary Care Provider Keli Orozco RN Unavailable Unavailable Keli Orozco RN Unavailable Unavailable Tami Mcknight RN Unavailable Unavailab le Encounter Details Date Type Department Care Team (Late st Contact Info) Description 09/29/2014 Orders Only [facility] Health Information Management [address] [place] [address] Scanning, Provider Social History Tobacco Use Types Packs/Day Years Used Date Smoking Tobacco: Never Assessed Comments Unknown Sex and Gender Information Value Date Recorded Sex Assigned at Not on file 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 Aislinn Goldsmith, FINAL ASSEMBLY AND PACKING SUPERVISOR 06/09/2019 06/09/2019 06/09/2019 4:20 PM C DT documented as of this encounter Care Teams Automatic Spinning Lathe Operator Relationship Specialty Start Date End Date Wilber Cleaning Jr., MD [address] [place] [address] PCP - General 07/03/16 07/15/20 Ryann Galdamez PA [address] [place] [address] PCP - General Senior Loan Processor 07/16/20 04/01/21 Ryann Galdamez PA [address] [place] [address] PCP - General Senior Loan Processor 04/02/21 01/22/22 Cuba Larsen MD [address] [facility] [address] [place] [address] PCP - General Family Medicine 01/23/22 Chris Mendes MD [address] [place] [address] Referring Physician Cardiology 12/23/21 Keli Orozco, medical pathology teacherCorporate Consultant Cardiology 12/23/21 04/15/23 Alysa Newton, RN [address] [facility] [address] [place] [address] Corporate Consultant Cardiology 12/23/21 Keli Orozco, streetcar operator Failure Coordinator 04/02/23 4 Keli Orozco, streetcar operator Failure Coordinator Transplant 04/15/23 Tami Mcknight streetcar operator Failure Coordinator Cardiology 09/14/23 documented as of this encounter
--- OUTSIDE RECORDS SUMMARY | 2024-06-17 11:36 | XMS_ITS | Referral Summary ---
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 Role Phone Chris Mendes MD Unavailable [phone] Cuba Larsen MD Primary Care Provider [phone] Keli Orozco RN Unavailable Unavailable Tami Mcknight RN Unavailable Unavailab le Encounters Date Type Department Care Team Description 06/17/2024 ACO Quality [facility] Care Organization [address] [place] [id number] Gela Lin MA 06/14/2024 2:30 PM CDT Office Visit [facility] Family Medicine at [address] [place] [phone] Cuba Larsen MD Acute cough (Primary Dx) 06/13/2024 Telephone [facility] Family Medicine at [address] [place] [phone] Cuba Larsen MD Med Refill 06/13/2024 Telephone [facility] Family Medicine at [address] [place] [address] Cuba Larsen MD Symptom Based Call 06/06/2024 1:30 PM CDT Office Visit [facility] at [address] [place] [address] Elayne Ang NP WAI (generalized anxiety disorder) (Primary Dx); Slow transit constipation; Psychophysiological insomnia; Chronic combined systolic and diastolic congestive heart failure (HCC); Chronic tension-type headache, intractable 05/10/2024 3:00 PM CHEMICAL MIXER Office Visit [facility] at [address] [place] [address] Elayne Ang NP WAI (generalized anxiety disorder) (Primary Dx); Acute on chronic combined systolic and diastolic congestive heart failure (HCC); Moderate episode of recurrent major depressive disorder (HCC); Psychophysiological insomnia; Gastro-esophageal reflux disease without esophagitis; Chronic gastric ulcer without hemorrhage and without perforation; Slow transit constipation; Essential tremor; Type 2 diabetes mellitus without complication, without long-term current use of insulin (HCC); Acquired hypothyroidism; Need for hepatitis B screening test; Encounter for hepatitis C screening test for low risk patient; Healthcare maintenance 05/02/[address] [facility] at [address] [place] [phone] Cuba Larsen MD 04/22/2024 Telephone [facility] Transplant Heart [address] [facility] [address] Mailstop [phone] [place] [address] Ita Mcdonough 04/15/2024 1:00 PM CHEMICAL MIXER Office Visit [facility] Stroke [address] [facility] [address] [place] [address] Araceli Salcedo MD Essential hypertension (Primary Dx); 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 (HCC); Paroxysmal atrial fibrillation (HCC); Hyperlipidemia, unspecified hyperlipidemia type; Longstanding persistent atrial fibrillation (HCC); Essential tremor 04/07/2024 Telephone [facility] Medicine at [address] [place] [address] Cuba Larsen MD Referral Request (/); Medical Question/Miscellaneous 04/07/2024 Telephone [facility] Family Medicine at [place] [address] [facility] [address] [place] [address] Cuba Larsen MD 04/01/2024 Orders Only [facility] Cardiology [address] [place] [address] Magnolia Rico NP 03/19/2024 Orders Only [facility] Information Management [address] [place] [address] Cuba Larsen MD from Last 3 Months Allergies Active Allergy Reactions Criticality Noted Date Comments Prasanth Inhibitors Cough Reaction: COUGH, Amlodipine Shortness of breath High 07/21/2019 Citalopram Lisinopril Lisinopril-Hydrochloro thiazide Dizziness,Nausea only Low 05/13/2021 Dizzy, nauseated Medications CALCIUM CARBONATE ORAL Take 600 mg by mouth 2 (two) times a day Active blood-glucose meter miscIndicatio ns:Type 2 diabetes mellitus without complication, without long-term current use of insulin ([facility]) Use daily or as directed for monitoring of diabetes. 1 each 03/19/19 24 Active blood glucose diagnostic (glucose blood) stripIndicati ons:Type 2 diabetes mellitus without complication, without long-term current use of insulin ([facility]) One strip daily to check glucose 100 each 1 03/19/19 24 Active lancets miscIndicatio ns:Type 2 diabetes mellitus without complication, without long-term current use of insulin ([facility]) 1 each by other route daily 100 each 1 03/19/19 24 Active cholecalcifer ol (VITAMIN D-3) 2000 unit tablet Take by mouth Acti ve apixaban (Eliquis) 5 mg tablet Take 1 tablet (5 mg total) by mouth 2 (two) times a day 60 tablet 11 08/11/19 24 Active rosuvastatin (CRESTOR) 20 mg tablet TAKE 1 TABLET BY MOUTH EVERY DAY 90 tablet 3 09/02/19 24 Active spironolacton e (ALDACTONE) 50 mg tablet Take 1 tablet (50 mg total) by mouth daily 90 tablet 3 11/02/19 24 Active glipiZIDE (GLUCOTROL) 10 mg tablet TAKE 1 TABLET BY MOUTH TWICE A DAY BEFORE BREAKFAST AND LUNCH 180 tablet 1 11/19/19 Active acetaminophen 500 mg capsuleIndica tions:Pain Take 2 capsules (1,000 mg total) by mouth every 6 (six) hours 12/16/19 Active lidocaine (ASPERCREME) 4 % adhesive patch,medicat ed Place 1 patch on the skin daily 12/16/19 Active senna (SENOKOT) 8.6 mg tablet Take 1 tablet by mouth daily as needed for constipation 12/16/19 Active carvediloL (COREG) 25 mg tablet Take 1 tablet (25 mg total) by mouth 2 (two) times a day with meals 12/16/19 Active levothyroxine (SYNTHROID) 50 mcg tablet TAKE 1 TABLET BY MOUTH EVERY DAY 90 tablet 02/05/20 Active metFORMIN (GLUCOPHAGE) 500 mg tablet TAKE 1 TABLET BY MOUTH TWICE A DAY WITH FOOD 180 tablet 1 02/29/20 Active sodium chloride 1 gram tablet Take 1 tablet (1 g total) by mouth daily for 7 days 7 tablet 05/02/19 25 Active loratadine (CLARITIN) 10 mg tablet Take 1 tablet (10 mg total) by mouth daily 0 04/27/19 25 Active diphenhydrAMI NE-acetaminop hen (TYLENOL PM) 25-500 mg tablet Take 1 tablet by mouth nightly as needed for sleep Active pantoprazole DR (PROTONIX) 40 mg EC tabletIndicat ions:Treatmen t of Non-Bleeding Gastric Disorder Take 1 tablet (40 mg total) by mouth daily 90 tablet 1 05/10/19 25 Active polyethylene glycol (MIRALAX) 17 gram/dose bulk powderIndicat ions:constipa tion Take 17 g by mouth daily as needed (constipation) 05/10/19 25 Active sertraline (ZOLOFT) 50 mg tablet Take 1 tablet (50 mg total) by mouth daily 30 tablet 06/07/19 25 Active traZODone (DESYREL) 50 mg tabletIndicat ions:Psychoph ysiological insomnia Take 2 tablets (100 mg total) by mouth nightly as needed for sleep 60 tablet 06/07/19 25 05/23/2 025 Active furosemide (LASIX) 20 mg tablet Take 1 tablet (20 mg total) by mouth daily 90 tablet 1 06/14/19 25 025 Active azithromycin (ZITHROMAX) 250 mg tablet Take 2 tabs (500 mg) by mouth today, than 1 tab (250 mg) daily for 4 days. 6 tablet 06/15/19 25 025 Active dexAMETHasone (DECADRON) 4 mg tablet Take 1 tablet (4 mg total) by mouth 2 (two) times a day with meals 6 tablet 06/15/19 25 Active hydrOXYzine (ATARAX) 25 mg tablet TAKE 1 TABLET (25 MG TOTAL) BY MOUTH 2 (TWO) TIMES A DAY NEEDED FOR ITCHING 180 tablet 1 06/16/19 25 Active furosemide (LASIX) 40 mg tabletIndicat ions:Acute on chronic combined systolic and diastolic congestive heart failure (HCC) Take 1 tablet (40 mg total) by mouth daily 025 Discontinued(R eorder) sertraline (ZOLOFT) 25 mg tabletIndicat ions:WAI (generalized anxiety disorder) Take 1 tablet (25 mg total) by mouth daily 30 tablet 05/10/19 25 025 Discontinued traZODone (DESYREL) 50 mg tabletIndicat ions:Psychoph ysiological insomnia Take 0.5 tablets (25 mg total) by mouth nightly as needed for sleep 30 tablet 05/10/19 25 025 Discontinued furosemide (LASIX) 40 mg tabletIndicat ions:Acute on chronic combined systolic and diastolic congestive heart failure (HCC) Take 1 tablet (40 mg total) by mouth daily 30 tablet 2 05/31/19 25 025 Discontinued sertraline (ZOLOFT) 25 mg tabletIndicat ions:WAI (generalized anxiety disorder) TAKE 1 TABLET (25 MG TOTAL) BY MOUTH DAILY. 90 tablet 1 06/04/19 25 025 Discontinued(T herapy completed) furosemide (LASIX) 40 mg tabletIndicat ions:Chronic combined systolic and diastolic congestive heart failure (HCC) Take 0.5 tablets (20 mg total) by mouth daily 06/07/19 25 025 Discontinued(T herapy completed) hydrOXYzine (ATARAX) 25 mg tablet Take 1 tablet (25 mg total) by mouth 2 (two) times a day as needed for itching 90 tablet 06/07/19 25 025 Discontinued Active Problems Problem Noted Date Diagnosed Date Chronic gastric ulcer withou t hemorrhage and without perforation 05/20/2024 Assessment & Plan (05/20/2024 8:46 PM CHEMICAL MIXER): Chronic, stable Continue Protonix 40 mg daily Discussed anti-reflux maneuvers, avoiding acidic foods like citrus, tomatoes, and spicy foods. Avoid eating 3-4 hours before bed, elevate head of bed, and work on weight loss to reduce symptoms. Psychophysiological insomnia 05/20/2024 Assessment & Plan (05/20/2024 8:46 PM CHEMICAL MIXER): Chronic, worsening Initiate trazodone 25 mg nightly as needed for sleep Discussed good sleep hygiene habits such as regular sleep-wake times, avoiding screens prior to bed, warm shower prior to bed, staying hydrated Healthcare maintenance 05/20/2024 Assessment & Plan (05/20/2024 8:47 PM CHEMICAL MIXER): Obtain labs Discussed with patient current recommendations for annual screening(s) including pap smear every 3 years starting at age 21 until age 30, then every 5 years from age 30 until 65. Patients no longer need paps after age 65. Recommend annual mammograms starting at age 40. Recommend colon cancer screening with colonoscopy or DNA stool testing such as Cologuard starting at age 45. Bone density for postmenopausal status. Discussed diet, exercise, and importance of maintaining a healthy weight. CHF (congestive heart failure) 05/10/2024 Assessment & Plan (05/20/2024 8:46 PM CHEMICAL MIXER): Chronic, stable. Asymptomatic. Euvolemic on exam today Continue Lasix 40 mg daily and spironolactone 50 mg daily Continue carvedilol 25 mg twice daily Continue follow-up with cardiology as scheduled Sleep apnea 12/10/2023 Assessment & Plan (12/10/2023 3:34 PM CDT): Patient uses CPAP at home - home machine at bedside Discharge planning issues 12/09/2023 Assessment & Plan [...] Hgb stable at 7.7 (7.7), DC to [facility] Treatment Plan: done 12/15 Encounter for medication review 12/09/2023 Assessment & Plan (12/09/2023 6:13 AM CDT): Medications reviewed and updated in admissions tab Home pharmacy [facility] in [facility] DNR (do not resuscitate) 12/09/2023 Assessment & Plan (12/09/2023 11:49 AM CDT): Patient wishes to be DNR after OR Advanced care planning/counseling discussion Assessment & Plan (12/10/2023 8:48 AM CDT): Discussed with patient at bedside regarding code status. She does not have paperwork with her, however she would like to remain DNR/DNI after surgery today. Spoke with brother, [facility] 12/08 who also supported patients decision for [...] home anticoagulation at discharge Hemiparesis affecting left side as late effect o f stroke 10/11/2021 History of nephrolithiasis 03/21/2021 Assessment & Plan (06/02/2021 9:51 AM CDT): History of kidney stones with recent lithotripsy. Patient has follow-up with Urology for continued management of the kidney stones. Assessment & Plan (03/21/2021 12:52 PM CHEMICAL MIXER): Will arrange for stat CT abdomen pelvis [...] depressive d isorder 08/21/2020 Assessment & Plan (05/20/2024 8:44 PM CHEMICAL MIXER): Chronic, worsening Start Zoloft 25 mg daily Encouraged counseling Follow-up in 3 weeks Assessment & Plan (10/21/2021 12:54 PM CDT): [...] monitor. Assessment & Plan (03/12/2021 7:23 PM CHEMICAL MIXER): Increase prozac dosing Advised finding hobbies to help take her mind off of world events Assessment & Plan (02/05/2021 5:41 PM CHEMICAL MIXER): Add prozac every day, continue with prn [...] time Assessment & Plan (03/12/2021 7:23 PM CHEMICAL MIXER): Continue with prn ambien Assessment & Plan (02/05/2021 5:42 PM CHEMICAL MIXER): Continue with prn ambien Assessment & Plan (11/12/2020 5:12 PM CDT): Increase ambien to 10mg at hs/prn Assessment & Plan (08/21/2020 4:37 PM CDT): On prn ambien, will refill as needed Gastro-esophageal reflux disease without esophag itis 06/05/2019 Assessment & Plan (05/20/2024 8:43 PM CHEMICAL MIXER): Chronic, stable Continue Protonix 40 mg daily Discussed anti-reflux maneuvers, avoiding acidic foods like citrus, tomatoes, and spicy foods. Avoid eating 3-4 hours before bed, elevate head of bed, and work on weight loss to reduce symptoms. WAI (generalized anxiety disorder) 06/05/2019 Assessment & Plan (05/20/2024 8:44 PM CHEMICAL MIXER): Chronic, increased Start Zoloft 25 mg daily Encouraged counseling Follow-up in 3 weeks Assessment & Plan (12/09/2023 6:11 AM CDT): Home xanax, continued PRN Slow transit constipation 06/05/2019 Assessment & Plan (05/20/2024 8:44 PM CHEMICAL MIXER): Chronic, worsening Start MiraLax 17 g daily Increase fluid intake and fiber intake Follow-up in 3 weeks Acquired hypothyroidism 05/31/2019 Assessment & Plan (05/20/2024 8:41 PM CHEMICAL MIXER): Chronic, stable Obtain updated TSH Continue levothyroxine 50 mcg daily, may need adjustment based on updated lab results Assessment & Plan (12/09/2023 8:53 AM CDT): Continue home levothyroxine Assessment & Plan (10/21/2021 12:54 PM CDT): Will evaluate further and routine labs. Will notify her of the results of these labs as they become available. Assessment & Plan (06/02/2021 9:48 AM CDT): Check labs. Continue levothyroxine 50 mcg Assessment & Plan (03/12/2021 7:22 PM CHEMICAL MIXER): Will evaluate further with labs Continue meds [...] daily Type 2 diabetes mellitus without complications 0 05/31/2019 Assessment & Plan (05/20/2024 8:42 PM CHEMICAL MIXER): Chronic, stable Obtain updated A1c, CMP, thyroid panel, lipid panel, albumin creatinine ratio Continue metformin twice daily with food and glipizide twice daily with breakfast and lunch Assessment & Plan (12/10/2023 7:01 AM CDT): [...] available Assessment & Plan (03/12/2021 7:22 PM CHEMICAL MIXER): Continue medications same at this time Encouraged heart healthy diet Advised increasing frequency of eating Assessment & Plan (02/05/2021 5:42 PM CHEMICAL MIXER): Stable, continue meds same at this time [...] report the blood pressure readings to her screen printer. Assessment & Plan (07/15/2021 5:40 PM CDT): Continue with care per screen printer Assessment & Plan (06/17/2021 1:09 PM CDT): [...] Plan (08/21/2020 4:37 PM CDT): Managed by screen printer, continue medication same at this time Assessment & Plan (06/04/2019 7:57 AM CDT): Patient on amlodipine 5 mg, losartan 100 mg, carvedilol 25 mg BID, and HCTZ 25 mg at home - Currently holding home antihypertensives in setting of PE with soft blood pressures, restart as tolerated Presence of left artificial knee joint 0 Longstanding persistent atrial fibrillation 07/2017 Assessment & Plan (12/14/2023 9:12 AM CDT): Holding home eliquis and Carvedilol 12/10 A fib controlled HR 100s, restarting Coreg 12.5 mg PO BID (home dose 50 mg PO BID) CTM 12/11 HR 90s a fib rate controlled, continue Coreg 25 mg PO BID 12/13 remains rate controlled 90s, continue Coreg 25 mg PO BID Follow up scheduled: [facility] 01/31 at 1:20 Assessment & Plan (08/21/2020 4:37 PM CDT): Managed by screen printer, has pet/ct stress this week. Essential tremor Assessment & Plan (05/20/2024 8:45 PM CHEMICAL MIXER): Chronic, stable Does not take medication at this time for tremor Hyperlipidemia Resolved Problems Problem Noted Date Diagnosed Date Resolved Date Hyponatremia 12/15/2023 05/10/2024 Assessment & Plan (12/16/2023 10:02 AM CDT): 12/14 Na 128, started PO tablets 12/15 Na 129 - Recheck BMP at [facility] in 1 week Acute blood loss anemia (ABLA) 12/13/2023 05/10/2024 Assessment & Plan (12/16/2023 10:01 AM CDT): 12/09 Hgb 11-> 8.4, 1 unit PRBC, post transfusion Hgb stable 8.5 12/12 Hgb 6.2, 1unit PRBC, post Hgb 7.1, CTM 12/13 stable Hgb 8.1 12/14 Hgb 8.3, stable 12/15 Hgb 7.7 (7.7), stable Hyperkalemia 12/12/2023 05/10/2024 Assessment & Plan (12/16/2023 10:01 AM CDT): 12/11 serum K 5.8-> hyperkalemia protocol initiated, EKG unchanged, repeat whole blood K 4.7, placed Lucio 12/12 stable 5.0 12/13 lateral 5.0-5.4, CTM 12/14 5.3, whole blood K 5.1 12/15 WBK 4.8 Urinary retention 12/12/2023 05/10/2024 Assessment & Plan (12/15/2023 11:25 AM CDT): 12/11 required straight cath overnight,430 mL retained, in the setting of Hyperkalemia placed Lucio 12/13 void trial pending 12/14 voiding without difficulty 1.5L RESOLVED Electrolyte depletion 12/10/20232024 Assessment & Plan (12/10/2023 8:36 AM CDT): 12/09 magnesium and potassium replaced Symptomatic hypotension 12/10/202304/17 Assessment & Plan (12/15/2023 11:15 AM CDT): [...] mg BID PO RESOLVED Stroke-like symptom 12/10/2023 05/10/19 Assessment & Plan (12/15/2023 11:16 AM CDT): [...] to monitor, improving 12/14 continues to improve Obesity (BMI 30-39.9) 12/10/20232024 Assessment & Plan (12/10/2023 3:35 PM CDT): BMI 34.18 Weakness of both lower extremities 02/13/2022 08/13/2022 [...] at this time She will continue with [facility] boot Assessment & Plan (06/02/2021 9:54 AM CDT): Patient sustained a distal fibular fracture after falling related to the stroke. She is currently in a boot. She needs to see Orthopedics and has been scheduled at [facility] that would prefer to be seen in the shadow area. Will make referral to Ortho in [place] for definitive management of this ankle fracture. Kidney stone 05/21/2021 10/09/2022 Acute left flank pain 03/21/20212021 Assessment & Plan (03/21/2021 12:52 PM CHEMICAL MIXER): Will arrange for stat CT abdomen pelvis without contrast in stat labs today. Will notify patient of the results as they become available. She was advised to report to the ER in the interim if symptoms are worsening. Acute cystitis with hematuria 03/12/2021 10/21/2021 Assessment & Plan (03/21/2021 12:52 PM CHEMICAL MIXER): Will arrange for stat CT abdomen pelvis without contrast in stat labs today. Will notify patient of the results as they become available. She was advised to report to the ER in the interim if symptoms are worsening. Assessment & Plan (03/12/2021 7:25 PM CHEMICAL MIXER): We reviewed poc ua. Will culture urine, will notify her of results as available. Advised to f/u in next week if not improving, sooner if worsening. BMI 29.0-29.9,adult 03/12/2021 06/04/19 Weight loss 03/12/2021 08/13/2022 Assessment & Plan (03/12/2021 7:24 PM CHEMICAL MIXER): Will evaluate further with labs and imaging, [...] 08/13/2022 Assessment & Plan (03/12/2021 7:23 PM CHEMICAL MIXER): Will evaluate further with labs and imaging, [...] 12:18 PM CDT): Currently being evaluated by screen printer, cardiac cath pending. Will also refer to mechanic assistant for further evaluation and treatment. BMI 30.0-30.9,adult 08/21/2020 10/10/19 Assessment & Plan (01/17/2021 6:09 PM CDT): [...] depression Assessment & Plan (03/12/2021 7:22 PM CHEMICAL MIXER): Will increase strength of xanax, encouraged using prn Assessment & Plan (02/05/2021 5:41 PM CHEMICAL MIXER): Add prozac every day, continue with prn [...] chronic systolic CH F (congestive heart failure) ([facility]) 06/08/2019 02/13/2022 Non-ST elevation (NSTEMI) my ocardial infarction ([facility]) 06/08/2019 08/13/2022 Chronic combined systolic (c ongestive) and diastolic (congestive) heart failure 06/05/2019 Hypertensive heart disease with heart failure 06/05/19 20 09/02/2023 Hypokalemia 06/05/2019 02/13/2022 Assessment & Plan (06/17/2021 1:09 PM CDT): Resume kcl 20meq one tab daily Repeat bmp this week Insomnia, unspecified 06/05/20192023 MCC (current) use of insulin 06/05/2019 03/03/2023 Major depressive disorder, s eyad episode, unspecified 06/05/2019 06/01/2021 Acute pulmonary embolism wit h acute cor pulmonale ([facility]/HCC) 05/31/2019 02/13/2022 Assessment & Plan (06/02/2019 9:36 [...] (05/22/2019): Added automatically from request for surgery [id number] Closed displaced comminuted fracture of shaft of left femur 05/21/2019 06/01/2021 Overview (05/23/2019): Added automatically from request for surgery [id number] BMI 36.0-36.9,adult 10/11/2015 09/05/19 21 Assessment & Plan (08/21/2020 10:46 AM CDT): Obesity is unchanged. Discussed the patient's BMI. The BMI is above average. BMI management plan is completed. BMI Follow-up includes: nutrition counseling, exercise counseling and education provided. Immunizations Immunization Administration Dates Next Due Influenza, Quad, Adjuvantate d, Intramuscular 12/06/2022 Influenza, Quadrivalent, Hig h Dose, Preservative Free, Intrr 01/18/2022,01/18/2021 Influenza, Trivalent, High D ose, Split, Preservative Free, Intramuscular 12/15/2023,01/07/2019 Influenza, Unspecified 01/19/2022,12/14/2018 Moderna SARS-CoV-2 Monovalen t [...] on file Legal Sex Female 4:20 AM CHEMICAL MIXER Gender Identity Not on file Sexual Orientation Not on file Last Filed Vital Signs Vital Sign Reading Time Taken Comments Blood Pressure 146/96 06/14/2024 2:43 PM CDT Pulse 71 06/14/2024 2:43 PM CDT Temperature 37.1 C (98.7 F) 06/14/2024 2:43 PM CDT Respiratory Rate 18 06/06/2024 1:41 PM CDT Oxygen Saturation 99% 06/14/2024 2:43 PM CDT Inhaled Oxygen Concentration - - Weight 79.7 kg (175 lb 12.8 oz) 06/14/2024 2:43 PM CDT Height 157.5 cm (5' 2 ) 06/14/2024 2:43 PM CDT Body Mass Index 32.15 06/14/2024 2:43 PM CDT Plan of Treatment Not on file Medical Devices Implanted Type Area Computer Graphic Designer Device Identifier Shelf Expiration Date Model / Serial / Lot Plate-07/29/2015 Implanted:07/28 (Quantity not on file) Plate Left: Wrist Screw-07/29/2015 Implanted:07/28 (Quantity not on file) Screw Left: Wrist Description:x2 Synthes 4.5mm 8mm 40mm Self Tap Large Hexagonal Socket Cortex Screw Bone 214.840 - [id number] Implanted:Qty: 1 on 12/09/2023 by Homer Villalobos MD at [facility] Screw Left: Femur Synthes 214.840 / / [employer] 6191-010 Simplex P Radiopaque Full Dose Cement Bone Sterile - [id number] Implanted:Qty: 1 on 05/25/2019 by Kaveh Charles MD at [facility] Left: Femur [employer] 01/13/2021 6191- / / [id number] [employer] 91 Simplex P Radiopaque Full Dose Cement Bone Sterile - [id number] Implanted:Qty: 1 on 05/25/2019 by Kaveh Charles MD at [facility] Left: Femur [employer] 03/15/2021 6191- / / [id number] [employer] [id number] Most Ii H14 Mm Rotating Hinge; Segment; Machine Mold Knee B Inser - [id number] Implanted:Qty: 1 on 05/25/2019 by Kaveh Charles MD at [facility] Left: Knee [employer] [id number] 02/12/2025 [id number] / / [id number] [employer] [id number] Xt Knee B Insert Tibial Polyethylene - [id number] Implanted:Qty: 1 on 05/25/2019 by Kaveh Charles MD at [facility] Left: Femur [employer] [id number] 04/15/2027 [id number] / / [id number] Cmpnt Fem B Knee Left Albert Strl Segmental System - [id number] Implanted:Qty: 1 on 05/25/2019 by Kaveh Charles MD at [facility] Left: Femoral [employer] [id number] 04/15/2027 [id number] / / [id number] [employer]O rtho [id number] Prep-Im Plug [place] Sponge Suction Hip Kit Thr Latex Free - [id number] Implanted:Qty: 1 on 05/25/2019 by Kaveh Charles MD at [facility] Left: Femur [employer]/ Ortho [id number] / / [employer] Simplex P Radiopaque Full Dose Cement Bone Sterile - [id number] Implanted:Qty: 1 on 05/25/2019 by Kaveh Charles MD at [facility] Left: Femur Jonel Orthopaedics 01/13/2021 [id number] / / [id number] [employer] Simplex P Radiopaque Full Dose Cement Bone Sterile - [id number] Implanted:Qty: 1 on 05/25/2019 by Kaveh Charles MD at [facility] Left: Femur [employer] 12/13/2020 / / [id number] [employer] [id number] Nexgen 12n23hh Rotating Hinge Knee 2 Plate Tibial Zimaloy Pmma - [id number] Implanted:Qty: 1 on 05/25/2019 by Kaveh Charles MD at [facility] Left: Tibia [employer] [id number] 01/13/2023 [id number] / / [id number] [employer] [id number] 35mm Collar Knee Component Segmental Trabecular Metal 9-16mm Stem - [id number] Implanted:Qty: 1 on 05/25/2019 by Kaveh Charles MD at [facility] Left: Tibia [employer] [id number] 02/12/2023 [id number] / / [id number] [employer] [id number] Nexgen 13mm 130mm Cemented Segmental Knee Femur Straight Flute - [id number] Implanted:Qty: 1 on 05/25/2019 by Kaveh Charles MD at [facility] Left: Tibia [employer] [id number] 09/12/2028 [id number] / / [id number] Yelitza Angio-Seal Vip Bondek-Plus 8fr .038in 70cm Hemostatic Latex Free [id number] - [id number] Implanted:Qty: 1 on 08/07/2023 by Mor Riley MD at [facility] Power Content [facility] 04/07/2024 [id number] / / [id number] Synthes Dhs/Dcp 174mm 38mm 10 Hole Hip Condyle 130d Standard Barrel Plate 281.010s - [id number] Implanted:Qty: 1 on 12/09/2023 by Homer Villalobos MD at [facility] Left: Femur Synthes [id number] 04/15/2029 281.010S / / [id number] Synthes 4.5mm 8mm 38mm Self Tap Large Hexagonal Socket Cortex Screw Bone 214.838 - [id number] Implanted:Qty: 1 on 12/09/2023 by Homer Villalobos MD at [facility] Left: Femur Synthes 214.838 / / Synthes Dhs Dcs 36mm Compression Hip Condylar Screw Bone Stainless Steel 280.990 - [id number] Implanted:Qty: 1 on 12/09/2023 by Homer Villalobos MD at [facility] Left: Femur Synthes 280.990 / / Synthes 1.7mm 750mm Crimp Cerclage Cable Orthopedic Stainless Steel 298.801.01s - [id number] Implanted:Qty: 1 on 12/09/2023 by Homer Villalobos MD at [facility] Left: Femur [employer]s [id number] 09/12/2028 298.801.01S / / [id number] Synthes Dhs Dcs 12mm 8mm 2.7mm 90mm 22mm Lag Cannulated Hip Condylar 280.290 - [id number] Implanted:Qty: 1 on 12/09/2023 by Homer Villalobos MD at [facility] Left: Femur Synthes 280.290 / / Procedures Procedure Name Priority Date/Time Associated Diagnosis Comments CARDIOLOGY DOCUMENT SCAN Routine 03/21/2024 12:27 PM CHEMICAL MIXER CARDIOLOGY DOCUMENT SCAN 03/19/2024 EGFR Routine 03/16/2024 8:20 PM CHEMICAL MIXER HEMOGLOBIN A1C Routine 12/09/2023 10:24 PM CDT LIPID PANEL STAT 08/07/2023 2:35 PM CDT ALBUMIN CREATININE RATIO, URINE Routine 02/23/2023 11:01 AM CHEMICAL MIXER Type 2 diabetes mellitus without complication, without long-term current use of insulin ([facility]) HM DIABETES EYE EXAM Routine 12/10/2022 from Last 3 Months or Most Recently Relevant to Health Maintenance Results * Cardiology Document Scan (03/21/2024 12:27 PM CHEMICAL MIXER) Anatomical Region Laterality Modality Other us Magnolia Rico NP CV CARDIAC SERVICES PROCEDUR ES Final Result * Cardiology Document Scan (03/19/2024) Anatomical Region Laterality Modality Other us Cuba Larsen MD CV CARDIAC SERVICES PROCEDURE S Final Result * eGFR (03/16/2024 8:20 PM CHEMICAL MIXER) eGFR 70 >=60 mL/min/1. 73 m2 Comment: Interpretive Data Reference Interval Normal >/= 90 mL/min/1.73m2 Mildly decreased* 60 - 89 mL/min/1.73m2 Mildly to moderately decreased 45 - 59 mL/min/1.73m2 Moderately to severely decreased 30 - 44 mL/min/1.73m2 Severely decreased 15 - 29 mL/min/1.73m2 Kidney Failure < 15 mL/min/1.73m2 *Relative to young adult level Estimated glomerular [...] last reviewed 2021. Blood 03/16/2024 8:20 PM CHEMICAL MIXER 03/16/2024 9:15 PM CHEMICAL MIXER us Yves Bailey MD LAB BLOOD ORDERABLES Final R esult [facility] [address] [address] Department [place] [address] * (ABNORMAL) Hemoglobin A1c (12/09/2023 10:24 PM CDT) Hgb A1C 6.5(H) 4.0 - 5.6 % Estimated Average Glucose 140 mg/dL [facility] SMART Comment: The ADA recommends reporting an estimated Average Glucose (eAG) with all Hemoglobin A1c results using the equation derived from a study of 507 normal and diabetic adults. Minority populations were underrepresented and children were not included. (Diabetes Care 2020; 43(S1): S66-S76). The eAG is not equivalent to a fasting glucose. Blood 12/09/2023 10:2 4 PM CDT 12/09/2023 10:38 PM CDT us Emy Sanchez COST CONSULTANT LAB BLOOD ORDERABLES F inal Result [facility] Department [place] [address] * (ABNORMAL) Lipid panel (08/07/2023 2:35 PM CDT) Cholesterol 94 30 - 199 mg/dL Comment: Interpretive Data Ages < or = 19 years Acceptable: <170 mg/dL Borderline high: 170-199 mg/dL High: >or= 200 mg/dL Ages > or = 20 years Desirable: <200 mg/dL Borderline high: 200-239 mg/dL High: >or= 240 mg/dL Literature References: 1. Expert Panel on Integrated Guidelines for Cardiovascular Health and Risk Reduction in Children and Adolescents. Pediatrics 2011;128:S213 2. NCEP Expert Panel. Circulation 2004;110:227 Current Interpretive Data was last revised on 2017. Triglycerides 145 <=149 mg/dL [facility] SM[facility] Comment: Interpretive Data Ages < or = 9 years Acceptable: <75 mg/dL Borderline high: 75-99 mg/dL High: >or= 100 mg/dL Ages 10 to 20 years Acceptable: <90 mg/dL Borderline high: 90-129 mg/dL High: >or= 130 mg/dL Ages > or = 20 years Desirable: <150 mg/dL Borderline high: 150-199 mg/dL High: 200-499 mg/dL Very high: >or= 499 mg/dL Literature References: 1. Expert [...] 2017. LDL, calculated 33 <=129 mg/dL [facility] SMART Comment: Interpretive Data Ages < or = 19 years Acceptable: <110 mg/dL Borderline high: 110-129 mg/dL High: >or= 130 mg/dL Ages > or = 20 years Optimal: <100 mg/dL Near optimal: 100-129 mg/dL Borderline high: 130-159 mg/dL High: >160 mg/dL Literature References: 1. Expert Panel on Integrated Guidelines for Cardiovascular Health and Risk Reduction in Children and Adolescents. Pediatrics 2011;128:S213 2. NCEP Expert Panel. Circulation 2003;110:227 Current Interpretive Data was last revised on 2017. Non-HDL Cholesterol 62 mg/dL [facility] Comment: Interpretive Data Ages < or = 19 years Acceptable: <120 mg/dL Borderline high: 120-144 mg/dL High: >145 mg/dL Ages > or = 20 years When triglycerides are >200 mg/dL, Non-HDL cholesterol is a secondary target of therapy with treatment goals that are 30 mg/dL greater than the LDL cholesterol target. Literature References: 1. Expert Panel on Integrated Guidelines for Cardiovascular Health and Risk Reduction in Children and Adolescents. Pediatrics 2011;128:S213 2. NCEP Expert Panel. Circulation 2004;110:227 Current Interpretive Data was last revised on 2017. Chol/HDL ratio 3 [facility] Blood 08/07/2023 2:35 PM CDT 08/07/2023 2:51 PM CDT us Parris Celestin NP LAB BLOOD ORDERABLES Sri l Result Performing Organization Address City/[facility]/ZIP Co de Phone Number [facility] Department [place] [address] * Albumin Creatinine Ratio, Urine (02/23/2023 11:01 AM CHEMICAL MIXER) Creatinine, ur 94 20 - 275 mg/dL [facility] Microalbumin, ur 2.3 See Note: mg/dL [facility] Comment: Reference Range: Reference Range Not established Microalbumin/creat ratio 24 <30 mcg/mg creat [facility] Comment: The ADA defines abnormalities in albumin excretion as follows: Albuminuria Category Result (mcg/mg creatinine) Normal to Mildly increased <30 Moderately increased 30-299 Severely increased > OR = 300 The ADA recommends that at least two of three specimens collected within a 3-6 month period be abnormal before considering a patient to be within a diagnostic category. Urine 02/23/2023 11:0 1 AM CHEMICAL MIXER 02/23/2023 11:01 AM CHEMICAL MIXER us Cuba Larsen MD LAB URINE ORDERABLES Final Re sult Performing Organization Address [facility] Co de Phone Number [facility] [address] [place] [address] * DIABETES EYE EXAM (12/10/2022) us Historical Provider HEALTH MAINTENANCE Final Result from Last 3 Months or Most Recently Relevant to Health Maintenance Insurance [facility] HE[facility]ARE HEALTHCARE Advance Directives For more information, please contact: [phone] Documents on File Type Date Recorded Patient Night Stocker Expl anation ADVANCE DIRECTIVE 12/11/2023 12:06 PM NUHA R OF [place]ASS COMMUNICATIONS INSTRUCTOR-MEDICAL ADVANCE DIRECTIVE 10/27/2019 8:48 AM Power of Ship Boss-Medical ADVANCE DIRECTIVE 10/27/2019 8:47 AM Power of Ship Boss-Medical * LIMITED - No CPR (Latest Code [...] Agents on File Name Relationship Healthcare Agent [facility] Elio Culp [facility] Care Agent Care Teams Petroleum Plant Operator Relationship Specialty Start Date End Date Cuba Larsen MD PCP - General Family Medicine 01/23/22 Chris Mendes MD Referring Physician Cardiology 12/23/21 Keli Orozco, research and development tester Failure Coordinator Transplant 04/15/23 Tami Mcknight, research and development tester Failure Coordinator Cardiology 09/14/23
--- OUTSIDE RECORDS SUMMARY | 2024-06-17 11:36 | XMS_ITS | Encounter Summary ---
Author Organization [facility] Address [address] [place] [address] Phone Care Team Providers Care Hospice Consultant Name Role Phone Hermila Calhoun MD, Wilber Martinez Primary Care Provider Ryann Galdamez Primary Care Provider [phone] Ryann Galdamez Primary Care Provider [phone] Chris Mendes MD Unavailable [phone] Keli Orozco RN Unavailable Unavailable Alysa Newton RN Unavailable [phone] Cuba Larsen MD Primary Care Provider [phone] Keli Orozco RN Unavailable Unavailable Keli Orozco [...] on file Legal Sex Female 4:20 AM FABRICATION MANAGER Gender Identity Not on file Sexual [...] pt afebrile, without URI signs/symptoms. Aislinn Goldsmith, MANAGER AUDIO 06/09/2019 06/09/2019 06/09/2019 4:20 PM C DT documented as of this encounter Care Teams Hospice Consultant Relationship Specialty Start Date End Date Wilber Cleaning Jr., MD [address] [place] [address] PCP - General 07/03/16 07/15/20 Ryann Galdamez PA [address] [place] [address] PCP - General Social Science Research Assistant 07/16/20 04/01/21 Ryann Galdamez PA [address] [place] [address] PCP - General Social Science Research Assistant 04/02/21 01/22/22 Cuba Larsen MD [address] [place] [address] PCP - General Family Medicine 01/23/22 Chris Mendes MD [address] [place] [address] Referring Physician Cardiology 12/23/21 Keli Orozco, hand brush fillerCorrectional Sergeant Cardiology 12/23/21 04/15/23 Alysa Newton, RN [address] [place] [address] Correctional Sergeant Cardiology 12/23/21 Keli Orozco, manager biologics Failure Coordinator 04/02/23 4 Keli Orozco, manager biologics Failure Coordinator Transplant 04/15/23 Tami Mcknight RN Heart Failure Coordinator Cardiology 09/14/23 documented as of this encounter
--- OUTSIDE RECORDS SUMMARY | 2024-06-17 11:36 | XMS_ITS ---
Author Name Raymond Hi Address [address] [place] [address] Phone [phone] Organization [facility] ice Address [address] [place] [address] Phone [phone] Care Team Providers Care Welding Machine Operator Electroslag Name Role Phone Raymond Hi Unavailable Jo Ann Fitzgerald beth Unavailable Functional Status No Results Mental Status No Results Allergies and Intolerances Name Onset Date Reaction Severity lisinopril (Allergy) ThuJun 05 12:54:00 EDT 202 0 MILI Inhibitors (Allergy) ThuJun 04 18:30:00 EDT 2019 citalopram (Allergy) ThuJun 04 18:30:00 EDT 202 0 Medications Medication Directions Start Date End Date Milk of Magnesia 400 mg/5 mL oral suspension 30ml SUSPENSION, ORAL (FINAL DOSE FORM) Oral PRN 1 Time Daily constipation Yuliana Jun 22 01:00:00 EDT 2019 Sat Jun 24 01:00:00 EDT 2019 famotidine 20 mg tablet 20mg TABLET Oral 2 Times Daily Yuliana Jun 22 09:00:00 ED2019Jun 24 01:00:00 ED2019 lidocaine 5 % topical patch 1 patch ADHESIVE PATCH, MEDICATED Topical PRN 1 Time Daily Apply topically to back PRN Yuliana Jun 15 15:00:00 EDT 2019 Sat Jun 24 01:00:00 ED2019 Vitamin D2 1,250 mcg (50,000 unit) capsule 1 cap CAPSULE Oral 1 Time Weekly Vitamin D deficiency Yuliana Jun 15 07:00:00 ED2019 Sat Jun 24 01:00:00 ED2019 losartan 50 mg tablet 50mg TABLET Oral 1 Time Daily HTN ThuJun 13 11:00:00 2019Jun 13 17:35:00 EDT 2019 losartan 100 mg tablet 100mg TABLET Oral 1 Time Daily HTN ThuJun 13 17:00:00 2019Jun 24::2019 zolpidem 5 mg tablet 1 tablet TABLET Ora l 1 Time Daily insomnia ThuJun 13 21:00:00 2019Jun 24::2019 Xanax 0.25 mg tablet 1 tablet TABLET Ora l PRN (Max 3 Doses) TID PRN for anxiety ThuJun 13 21:10:00 2019Jun 24::2019 carvediloL 6.25 mg tablet 25mg TABLET Or al 2 Times Daily HTN ThuJun 12 16:00:2019Jun 12 18:19:00 2019 metFORMIN ER 500 mg 24 hr tablet,extended release 2 tabs TABLET, ER GASTRIC RETENTION 24 HR Oral 1 Time Daily ThuJun 13 07:00:00 2019Jun 24::2019 busPIRone 5 mg tablet 5mg TABLET Oral 1 Time Daily for 7 Days Anxiety ThuJun 13 07:00:2019Jun 20 06:59:00 2019 amiodarone 400 mg tablet 400mg TABLET Or al 2 Times Daily for 14 Days Irregular HR ThuJun 12 17:00:00 2019Jun 24::2019 busPIRone 5 mg tablet 5mg TABLET Oral 2 Times Daily Anxiety ThuJun 20 07:00:00 2019Jun 24::2019 amiodarone 200 mg tablet 200mg TABLET Or al 1 Time Daily Recurrent Afib ThuJun 27 07:00:00 2019Jun 24::2019 Eliquis 5 mg tablet 2 tabs TABLET Oral 2 Times Daily for 4 Days DVT ThuJun 12 18:00:00 2019Jun 16 17:59:00 2019 Eliquis 5 mg tablet 1 tab TABLET Oral 2 Times Daily DVT ThuJun 16 07:00:00 2019Jun 24::2019 aspirin 81 mg chewable tablet 81mg TABLET,CHEWABLE Oral 1 Time Daily DVT ThuJun 13 07:00:00 2019Jun 24:00:2019 Ozempic 0.25 mg or 0.5 mg (2 mg/1.5 mL) subcutaneous pen injector 0.25mg PEN INJECTOR (ML) Subcutaneous 1 Time Weekly DM 2 ThuJun 13 07:00:00 2019Jun 24 01:00:00 2019 carvediloL 6.25 mg tablet 6.25mg TABLET Oral 2 Times Daily HTN ThuJun 12 16:00:00 2019Jun 24 01:00:00 2019 levothyroxine 25 mcg tablet 25mcg TABLET Oral 1 Time Daily Hypothyroidism ThuJun 08 07:00:00 2019Jun 24 01:00:00 2019 losartan 50 mg tablet 50mg TABLET Oral 1 Time Daily HTN ThuJun 07 01:00:00 2019Jun 06 13:22:00 2019 losartan 100 mg tablet 100mg TABLET Oral 1 Time Daily HTN ThuJun 06 13:00:00 2019Jun 13 11:02:00 2019 busPIRone 5 mg tablet 5mg TABLET Oral 1 Time Daily for 7 Days Anxiety ThuJun 07 08:00:00 2019Jun 12 16:40:00 2019 busPIRone 5 mg tablet 5mg TABLET Oral 2 Times Daily Anxiety ThuJun 14 08:00:00 2019Jun 12 16:44:00 2019 Xanax 0.25 mg tablet 1 tablet TABLET Ora l PRN 3 Times Daily anxiety ThuJun 05 02:00:00 2019Jun 05 08:52:00 2019 ipratropium 0.5 mg-albuteroL 3 mg (2.5 mg base)/3 mL nebulization soln 1 vial AMPUL FOR NEBULIZATION (ML) Inhalation PRN Every 6 Hours SOB ThuJun 05 02:00:00 2019Jun 21 12:25:00 2019 Xanax 0.25 mg tablet 1 tablet TABLET Ora l PRN 3 Times Daily anxiety ThuJun 05 01:00:00 2019Jun 12 16:40:00 2019 acetaminophen 500 mg tablet 1,000mg TABLET Oral PRN Every 6 Hours Pain ThuJun 04 18:00:00 2019Jun 12 16:26:00 2019 carvediloL 25 mg tablet 25mg TABLET Oral 2 Times Daily HTN ThuJun 04 18:00:00 2019Jun 12 16:27:00 2019 multivitamin with minerals tablet 1 tablet TABLET Oral 1 Time Daily Supplement ThuJun 04 18:00:2019Jun 24:00:2019 DULoxetine 60 mg capsule,delayed release 60mg CAPSULE,DELAYED RELEASE (ENTERIC COATED) Oral 1 Time Daily Depression ThuJun 04 19:00:2019Jun 24:00:2019 furosemide 20 mg tablet 20mg TABLET Oral 2 Times Daily CHF ThuJun 04::2019Jun 24::2019 levothyroxine 25 mcg tablet 25mcg TABLET Oral 1 Time Daily Hypothyroidism ThuJun 04 19:00:2019Jun 07 16:10:00 2019 lovastatin 10 mg tablet 10mg TABLET Oral 1 Time Daily High Cholesterol ThuJun 04::2019Jun 24::2019 losartan 50 mg tablet 50mg TABLET Oral 1 Time Daily HTN ThuJun 04:00:2019 Tum[place] 24 05:59:00 2019 metFORMIN 1,000 mg tablet 1,000mg TABLET Oral 1 Time Daily DM ThuJun 04 19:00:2019Jun 12 16:31:00 2019 oxyCODONE-acetaminophen 5 mg-325 mg tablet 1-2 tablets TABLET Oral PRN Every 4 Hours Pain ThuJun 04:00:2019Jun 24::2019 pantoprazole 40 mg tablet,delayed release 40mg TABLET, DELAYED RELEASE (ENTERIC COATED) Oral 1 Time Daily GERD ThuJun 04 19:00:2019Jun 24:00:2019 potassium chloride ER 20 mEq tablet,extended release(part/cryst) 20mEq TABLET, EXT RELEASE, PARTICLES/CRYSTALS Oral 1 Time Daily Supplement ThuJun 04 19:00:2019Jun 12 16:40:00 2019 Senna Laxative-Stool Softener 8.6 mg-50 mg tablet 2 tablets TABLET Oral 2 Times Daily Constipation ThuJun 04 19:00:2019Jun 05 12:13:00 2019 Vitamin D3 10 mcg (400 unit) tablet 400 Units TABLET Oral 1 Time Daily Supplement ThuJun 04 19:00:2019Jun 14 12:29:00 2019 warfarin 2 mg tablet 2mg TABLET Oral 1 T caitlyn Daily DVT proph ThuJun 04 19:00:00 EDT 2019Jun 12 16:40:00 EDT 2019 zolpidem 5 mg tablet 5mg TABLET Oral 1 T caitlyn Daily Insomnia ThuJun 04 19:00:00 EDT 2019Jun 12 16:40:00 EDT 2019 NovoLOG Flexpen U-100 Insulin aspart 100 unit/mL (3 mL) subcutaneous SSI INSULIN PEN (ML) Subcutaneous 3 Times Daily Sliding Scale Insulin: Insulin Units < 70 or > 401 Notify MD;70-150, 3 Units;151-200, 6 Units;201-250, 9 Units;251-300, 12 Units;301-350, 15 Units;351-400, 15 Units;> 401, 18 Units;. ThuJun 04 20:00:00 EDT 2019Jun 24 01:00:00 EDT 2019 TUBErsoL 5 tub. unit/0.1 mL intradermal injection solution 0.1 ml VIAL (ML) Intradermal 1 Time Weekly for 2 Weeks (PPD) 1st injection upon admission. Read between 48 and 72 hours and give 2nd injection 1 week after the 1st if result is negative. If positive result, proceed with chest x-ray to rule out active disease. ThuJun 05 07:00:00 EDT 2019Jun 12 16:40:00 EDT 2019 TUBErsoL 5 tub. unit/0.1 mL intradermal injection solution Read Results VIAL (ML) Other 1 Time Weekly for 2 Weeks Read results between 48-72 hours after 1st and 2nd 1 week apart. If positive do chest x-ray to rule out active disease. ThuJun 07 07:00:00 EDT 2019Jun 12 16:40:00 EDT 2019 Problems Active Concerns * Other pulmonary embolism without acute cor pulmonale* Code: * Start Date: ThuJun 04 00:00:00 ED2019 * End Date: * Text: * Paroxysmal atrial fibrillation* Code: * Start Date: ThuJun 04:00:00 ED2019 * End Date: * Text: * Unspecified fracture of lower end of left femur, subsequent encounter for closed fracture with routine healing* Code: * Start Date: ThuJun 04 00:00:00 ED2019 * End Date: * Text: * Presence of left artificial knee joint* Code: * Start Date: ThuJun 04 00:00:00 ED2019 * End Date: * Text: * Hypertensive heart disease with heart failure* Code: * Start Date: ThuJun 04:00:00 EDT 2019 * End Date: * Text: * Chronic combined systolic (congestive) and diastolic (congestive) heart failure* Code: * Start Date: ThuJun 04:00:00 ED2019 * End Date: * Text: * Hypokalemia* Code: * Start Date: ThuJun 04:00:00 ED2019 * End Date: * Text: * Type 2 diabetes mellitus without complications* Code: * Start Date: ThuJun 04::00 EDT 2019 * End Date: * Text: * Hypothyroidism, unspecified* Code: * Start Date: ThuJun 04:00:00 EDT 2019 * End Date: * Text: * Hyperlipidemia, unspecified* Code: * Start Date: ThuJun 04::00 ED2019 * End Date: * Text: * Major depressive disorder, single episode, unspecified* Code: * Start Date: ThuJun 04:00:00 ED2019 * End Date: * Text: * Generalized anxiety disorder* Code: * Start Date: ThuJun 04:00:00 EDT 2019 * End Date: * Text: * Obstructive sleep apnea (adult) (pediatric)* Code: * Start Date: ThuJun 04:00:00 EDT 2019 * End Date: * Text: * Gastro-esophageal reflux disease without esophagitis* Code: * Start Date: ThuJun 04:00:00 ED2019 * End Date: * Text: * Slow transit constipation* Code: * Start Date: ThuJun 04:00:00 EDT 2019 * End Date: * Text: * Insomnia, unspecified* Code: * Start Date: ThuJun 04:00:00 EDT 2019 * End Date: * Text: * extermination inspector (current) use of insulin* Code: * Start Date: ThuJun 04:00:00 EDT 2019 * End Date: * Text: * Patient's noncompliance with other medical treatment and regimen* Code: * Start Date: ThuJun 04:00:00 EDT 2019 * End Date: * Text: * Other pulmonary embolism with acute cor pulmonale* Code: * Start Date: ThuJun 12 00:00:00 EDT 2019 * End Date: * Text: * Non-ST elevation (NSTEMI) myocardial infarction* Code: * Start Date: ThuJun 12 00:00:00 EDT 2019 * End Date: * Text: * Acute on chronic systolic (congestive) heart failure* Code: * Start Date: ThuJun 12 00:00:00 EDT 2019 * End Date: * Text: Reason for Referral Past Medical History
--- OUTSIDE RECORDS SUMMARY | 2024-06-17 11:36 | XMS_ITS | Clinical Summary ---
Author Organization [facility] Address [address] [place] [address] Care Team Providers Care Industrial Spray Painter Name Role Phone Chris Mendes MD Unavailable [phone] Cuba Larsen MD Primary Care Provider [phone] Keli Orozco RN Unavailable Unavailable Tami Mcknight [...] complication, without long-term current use of insulin (HCC) Use daily or as directed for monitoring of diabetes. 1 each 03/19/19 24 Active blood glucose diagnostic (glucose blood) stripIndicati ons:Type 2 diabetes mellitus without complication, without long-term current use of insulin (HCC) One strip daily to check glucose 100 each 1 03/19/19 24 Active lancets miscIndicatio ns:Type 2 diabetes mellitus without complication, without long-term current use of insulin (HCC) 1 each by other route daily [...] 1 11/19/19 24 Active acetaminophen 500 mg capsuleIndica tions:Pain Take 2 capsules (1,000 mg total) by mouth every 6 (six) hours 12/16/19 24 Active lidocaine (ASPERCREME) 4 % adhesive patch,medicat ed Place 1 patch on the skin daily 12/16/19 24 Active senna (SENOKOT) 8.6 mg tablet Take 1 tablet by mouth daily as needed for constipation 12/16/19 24 025 Active carvediloL (COREG) 25 mg tablet Take 1 tablet (25 mg total) by mouth 2 (two) times a day with meals 12/16/19 24 025 Active levothyroxine (SYNTHROID) 50 mcg tablet TAKE 1 TABLET BY MOUTH EVERY DAY 90 tablet 02/05/20 24 Active metFORMIN (GLUCOPHAGE) 500 mg tablet TAKE 1 TABLET BY MOUTH TWICE A DAY WITH FOOD 180 tablet 1 02/29/20 24 Active sodium chloride 1 gram tablet Take [...] mouth daily 90 tablet 1 05/10/19 25 025 Active polyethylene glycol (MIRALAX) 17 gram/dose bulk powderIndicat ions:constipa tion Take 17 g by mouth daily as needed (constipation) 05/10/19 25 Active sertraline (ZOLOFT) 50 mg tablet Take 1 tablet (50 mg total) by mouth daily 30 tablet 06/07/19 25 025 Active traZODone (DESYREL) 50 mg tabletIndicat ions:Psychoph ysiological insomnia Take 2 tablets (100 mg total) by mouth nightly as needed for sleep 60 tablet 06/07/19 25 025 Active furosemide (LASIX) 20 mg tablet [...] by mouth daily 30 tablet 2 05/31/19 025 Discontinued sertraline (ZOLOFT) 25 mg tabletIndicat ions:WAI (generalized anxiety disorder) TAKE 1 TABLET (25 MG TOTAL) BY MOUTH DAILY. 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 Avoid eating 3-4 hours before bed, elevate head of bed, and work on weight loss to reduce symptoms. Psychophysiological insomnia 05/20/2024 Assessment & Plan (05/20/2024 8:46 PM CUE WORKER): Chronic, worsening Initiate trazodone 25 mg nightly as needed for sleep Discussed good sleep hygiene habits such as regular sleep-wake times, avoiding screens prior to bed, warm shower prior to bed, staying hydrated Healthcare maintenance 05/20/2024 Assessment & Plan (05/20/2024 8:47 PM CUE WORKER): Obtain labs Discussed with patient current recommendations [...] 05/10/2024 Assessment & Plan (05/20/2024 8:46 PM CUE WORKER): Chronic, stable. Asymptomatic. Euvolemic on exam today [...] Hgb stable at 7.7 (7.7), DC to [facility] Treatment Plan: done 12/15 Encounter for medication review 12/09/2023 Assessment & Plan (12/09/2023 6:13 AM CDT): Medications reviewed and updated in admissions tab Home pharmacy [facility] DNR (do not resuscitate) 12/09/2023 [...] stones. Assessment & Plan (03/21/2021 12:52 PM CUE WORKER): Will arrange for stat CT abdomen pelvis [...] 08/21/2020 Assessment & Plan (05/20/2024 8:44 PM CUE WORKER): Chronic, worsening Start Zoloft 25 mg daily [...] monitor. Assessment & Plan (03/12/2021 7:23 PM CUE WORKER): Increase prozac dosing Advised finding hobbies to help take her mind off of world events Assessment & Plan (02/05/2021 5:41 PM CUE WORKER): Add prozac every day, continue with prn [...] time Assessment & Plan (03/12/2021 7:23 PM CUE WORKER): Continue with prn ambien Assessment & Plan (02/05/2021 5:42 PM CUE WORKER): Continue with prn ambien Assessment & Plan (11/12/2020 5:12 PM CDT): Increase ambien to 10mg at hs/prn Assessment & Plan (08/21/2020 4:37 PM CDT): On prn ambien, will refill as needed Gastro-esophageal reflux disease without esophag itis 06/05/2019 Assessment & Plan (05/20/2024 8:43 PM CUE WORKER): Chronic, stable Continue Protonix 40 mg daily Discussed anti-reflux maneuvers, avoiding acidic foods like citrus, tomatoes, and spicy foods. Avoid eating 3-4 hours before bed, elevate head of bed, and work on weight loss to reduce symptoms. WAI (generalized anxiety disorder) 06/05/2019 Assessment & Plan (05/20/2024 8:44 PM CUE WORKER): Chronic, increased Start Zoloft 25 mg daily Encouraged counseling Follow-up in 3 weeks Assessment & Plan (12/09/2023 6:11 AM CDT): Home xanax, continued PRN Slow transit constipation 06/05/2019 Assessment & Plan (05/20/2024 8:44 PM CUE WORKER): Chronic, worsening Start MiraLax 17 g daily Increase fluid intake and fiber intake Follow-up in 3 weeks Acquired hypothyroidism 05/31/2019 Assessment & Plan (05/20/2024 8:41 PM CUE WORKER): Chronic, stable Obtain updated TSH Continue levothyroxine [...] mcg Assessment & Plan (03/12/2021 7:22 PM CUE WORKER): Will evaluate further with labs Continue meds [...] 05/31/2019 Assessment & Plan (05/20/2024 8:42 PM CUE WORKER): Chronic, stable Obtain updated A1c, CMP, thyroid [...] available Assessment & Plan (03/12/2021 7:22 PM CUE WORKER): Continue medications same at this time Encouraged heart healthy diet Advised increasing frequency of eating Assessment & Plan (02/05/2021 5:42 PM CUE WORKER): Stable, continue meds same at this time [...] report the blood pressure readings to her building inspection engineer. Assessment & Plan (07/15/2021 5:40 PM CDT): Continue with care per building inspection engineer Assessment & Plan (06/17/2021 1:09 PM CDT): [...] Plan (08/21/2020 4:37 PM CDT): Managed by building inspection engineer, continue medication same at this time Assessment [...] Plan (08/21/2020 4:37 PM CDT): Managed by building inspection engineer, has pet/ct stress this week. Essential tremor Assessment & Plan (05/20/2024 8:45 PM CUE WORKER): Chronic, stable Does not take medication at this time for tremor Hyperlipidemia Resolved Problems Problem Noted Date Diagnosed Date Resolved Date Hyponatremia 12/15/2023 05/10/2024 Assessment & Plan (12/16/2023 10:02 AM CDT): 12/14 Na 128, started PO tablets 12/15 Na 129 - Recheck BMP at [facility] in 1 week Acute blood loss anemia [...] at this time She will continue with [facility] boot Assessment & Plan (06/02/2021 9:54 AM CDT): Patient sustained a distal fibular fracture after falling related to the stroke. She is currently in a boot. She needs to see Orthopedics and has been scheduled at [facility] that would prefer to be seen in the [place] area. Will make referral to Ortho in [place] for definitive management of this ankle fracture. Kidney stone 05/21/2021 10/09/2022 Acute left flank pain 03/21/20212021 Assessment & Plan (03/21/2021 12:52 PM CUE WORKER): Will arrange for stat CT abdomen pelvis without contrast in stat labs today. Will notify patient of the results as they become available. She was advised to report to the ER in the interim if symptoms are worsening. Acute cystitis with hematuria 03/12/2021 10/21/2021 Assessment & Plan (03/21/2021 12:52 PM CUE WORKER): Will arrange for stat CT abdomen pelvis without contrast in stat labs today. Will notify patient of the results as they become available. She was advised to report to the ER in the interim if symptoms are worsening. Assessment & Plan (03/12/2021 7:25 PM CUE WORKER): We reviewed poc ua. Will culture urine, will notify her of results as available. Advised to f/u in next week if not improving, sooner if worsening. BMI 29.0-29.9,adult 03/12/2021 06/04/19 22 Weight loss 03/12/2021 08/13/2022 Assessment & Plan (03/12/2021 7:24 PM CUE WORKER): Will evaluate further with labs and imaging, [...] 08/13/2022 Assessment & Plan (03/12/2021 7:23 PM CUE WORKER): Will evaluate further with labs and imaging, [...] 12:18 PM CDT): Currently being evaluated by building inspection engineer, cardiac cath pending. Will also refer to customer service attendant for further evaluation and treatment. BMI 30.0-30.9,adult [...] depression Assessment & Plan (03/12/2021 7:22 PM CUE WORKER): Will increase strength of xanax, encouraged using prn Assessment & Plan (02/05/2021 5:41 PM CUE WORKER): Add prozac every day, continue with prn [...] is better controlled. Vitamin D deficiency 08/21/2020 12/19/2 023 Assessment & Plan (08/21/2020 4:36 PM CDT): Fasting labs entered, will notify patient of results as available Encounter to establish care 08/21/2020 10/21/2021 Pulmonary embolism 06/10/2019 3 Acute on chronic systolic CH F (congestive heart failure) ([facility]) 06/08/2019 02/13/2022 Non-ST elevation (NSTEMI) my ocardial infarction ([facility]) 06/08/2019 08/13/2022 Chronic combined systolic (c ongestive) and diastolic (congestive) heart failure 06/05/2019 Hypertensive heart disease with heart failure 06/05/19 20 09/02/2023 Hypokalemia 06/05/2019 02/13/2022 Assessment & Plan (06/17/2021 1:09 PM CDT): Resume kcl 20meq one tab daily Repeat bmp this week Insomnia, unspecified 06/05/20192023 intermediate (current) use of insulin 06/05/2019 03/03/2023 Major depressive disorder, s eyad episode, unspecified 06/05/2019 06/01/2021 Acute pulmonary embolism wit h acute cor pulmonale ([facility]) 05/31/2019 02/13/2022 Assessment & Plan (06/02/2019 [...] PT/OT Open fracture of left distal femur ([facility]) 0 06/01/2021 Overview (05/22/2019): Added automatically from request for surgery [id number] Closed displaced comminuted fracture of shaft of left femur 05/21/2019 06/01/2021 Overview (05/23/2019): Added automatically from request for surgery [id number] BMI 36.0-36.9,adult 10/11/2015 09/05/19 Assessment & Plan (08/21/2020 10:46 AM CDT): Obesity is unchanged. Discussed the patient's BMI. The BMI is above average. BMI management plan is completed. BMI Follow-up includes: nutrition counseling, exercise counseling and education provided. Encounters Date Type Department Care Team Description 06/17/2024 ACO Quality [facility] Accountable Care Organization [address] [place] [address] Gela Lin MA 06/14/2024 2:30 PM CDT Office Visit [facility] Family Medicine at [address] [place] [address] Cuba Larsen MD Acute cough (Primary Dx) 06/13/2024 Telephone [facility] Family Medicine at [address] [place] [address] Cuba Larsen MD Med Refill 06/13/2024 Telephone [facility] at [address] [place] [phone] Cuba Larsen MD Symptom Based Call 06/06/2024 1:30 PM CDT Office Visit [facility] at [address] [place] [phone] Elayne Ang NP WAI (generalized anxiety disorder) (Primary Dx); Slow transit constipation; Psychophysiological insomnia; Chronic combined systolic and diastolic congestive heart failure (HCC); Chronic tension-type headache, intractable 05/10/2024 3:00 PM CUE WORKER Office Visit [facility] at [address] [place] [phone] Elayne Ang NP WAI (generalized anxiety disorder) [...] risk patient; Healthcare maintenance 05/02/2024 Nurse Triage [facility] at [address] [place] [phone] Cuba Larsen MD 04/22/2024 Telephone [facility] Transplant Heart [address] Mailstop [phone] [place] [address] Ita Mcdonough 04/15/2024 1:00 PM CUE WORKER Office Visit [facility] Stroke [address] [place] [phone] Araceli Salcedo MD Essential hypertension (Primary Dx); 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 (HCC); Paroxysmal atrial fibrillation (HCC); Hyperlipidemia, unspecified hyperlipidemia type; Longstanding persistent atrial fibrillation (HCC); Essential tremor 04/07/2024 Telephone [facility] Family Medicine at [address] [place] [address] Cuba Larsen MD Referral Request (/); Medical Question/Miscellaneous 04/07/[address] [facility] at [address] [place] [address] Cuba Larsen MD 04/01/2024 Orders Only [facility] Medical [facility] Cardiology [address] [place] [address] Magnolia Rico NP 03/19/2024 Orders Only [facility] Health Information Management [address] [place] [address] Cuba Larsen MD from Last 3 Months Immunizations Immunization Administration Dates Next Due Influenza, [...] diverticulum Insomnia Aortic stenosis, moderate Adrenal nodule AYAD on CPAP Cardiomyopathy (HCC) HFrEF (heart failure with reduced ejection fract ion) (HCC) NSTEMI (non-ST elevated myocardial infarction) ( HCC) Motion sickness Family History Medical History Relation Name Comments Diabetes Father Family history of diabetes mellitus - (Added by TW Conv) Heart attack Father Family history of heart attack - (Added by TW Conv) Heart disease Father Hypertension Father Family hx of hy pertension - (Added by Conv) Heart disease Mother Heart failure Mother Family history of heart failure - (Added by TW Conv) Sudden Cardiac Mother Family history of sudden cardiac - (Added by TW Conv) Diabetes Son Family history of diabetes mellitus - (Added by TW Conv) Anesthesia problems Neg Hx Relation Name [...] on file Legal Sex Female 4:20 AM CUE WORKER Gender Identity Not on file Sexual [...] 06/14/2024 2:43 PM CDT Plan of Treatment Health Maintenance Due Date Last Done Comments Osteoporosis Screening-Bone Density Scan 1940 Hepatitis B Screening 1959 Zoster Vaccine (1 of 2) 1991 Covid-19 Vaccine (2023-2 5 season) 2023 03/31/2022, 02/19/2021, 05/23/2020, Additional history exists Dilated Eye Exam 12/11/2023 [...] 05/20/2029 05/21/2019 Pneumococcal vaccine 65+ Completed 03/03/2023, 08/0 10/2021 Influenza Vaccine Completed 12/15/2023, , 01/19/2022, Additional history exists Medical Devices Implanted Type Area Party Plan Selling Distributor Device Identifier Shelf Expiration Date Model / Serial / Lot Plate-07/29/2015 Implanted:07/28 (Quantity not on file) Plate Left: Wrist Screw-07/29/2015 Implanted:07/28 (Quantity not on file) Screw Left: Wrist Description:x2 Synthes 4.5mm 8mm 40mm Self Tap Large Hexagonal Socket Cortex Screw Bone 214.840 - [id number] Implanted:Qty: 1 on 12/09/2023 by Homer Villalobos MD at [facility] Screw Left: Femur Synthes 214.840 / / [employer] 6191-1-010 Simplex P Radiopaque Full Dose Cement Bone Sterile - [id number] Implanted:Qty: 1 on 05/25/2019 by Kaveh Charles MD at [facility] Left: Femur [employer] 01/13/2021 6191-1-010 / / [id number] [employer] 6191--010 Simplex P Radiopaque Full Dose Cement Bone Sterile - [id number] Implanted:Qty: 1 on 05/25/2019 by Kaveh hCarles MD at [facility] Left: Femur [employer] 03/15/2021 6191-1-010 / / [id number] [employer] [id number] Most Ii H14 Mm Rotating Hinge; Segment; Machine Mold Knee B Inser - [id number] Implanted:Qty: 1 on 05/25/2019 by Kaveh Charles MD at [facility] Left: Knee [employer] [id number] 02/12/2025 [id number] / / [id number] [employer] 32-9080-200-96 Xt Knee B Insert Tibial Polyethylene - [id number] Implanted:Qty: 1 on 05/25/2019 by Kaveh Charles MD at [facility] Left: Femur [employer] [id number] 04/15/2027 09-7886-417-9 6 / / [id number] Cmpnt Fem B Knee Left Albert Strl Segmental System - [id number] Implanted:Qty: 1 on 05/25/2019 by Kaveh Charles MD at [facility] Left: Femoral [employer] [id number] 04/15/2027 [id number] / / [id number] [employer]/O rtho 200830 Prep-Im Plug [place] Sponge Suction Hip Kit Thr Latex Free - [id number] Implanted:Qty: 1 on 05/25/2019 by Kaveh Charles MD at [facility] Left: Femur [employer]/ Ortho [id number] / / [employer] 6191-1-010 Simplex P Radiopaque Full Dose Cement Bone Sterile - [id number] Implanted:Qty: 1 on 05/25/2019 by Kaveh Charles MD at [facility] Left: Femur [employer] 01/13/2021 6191-1-010 / / [id number] [employer] 6191-1-010 Simplex P Radiopaque Full Dose Cement Bone Sterile - [id number] Implanted:Qty: 1 on 05/25/2019 by Kaveh Charles MD at [facility] Left: Femur [employer] 12/13/2020 6191-1-010 / / [id number] [employer] [id number] Nexgen 78d13dg Rotating Hinge Knee 2 Plate Tibial Zimaloy Pmma - [id number] Implanted:Qty: 1 on 05/25/2019 by Kaveh Charles MD at [facility] Left: Tibia [employer] [id number] 01/13/2023 [id number] / / [id number] [employer] [id number] 35mm Collar Knee Component Segmental Trabecular Metal 9-16mm Stem - [id number] Implanted:Qty: 1 on 05/25/2019 by Kaveh Charles MD at [facility] Left: Tibia [employer] [id number] 02/12/2023 [id number] / / [id number] [employer] [id number] Nexgen 13mm 130mm Cemented Segmental Knee Femur Straight Flute - [id number] Implanted:Qty: 1 on 05/25/2019 by Kaveh Charles MD at [facility] Left: Tibia [employer] [id number] 09/12/2028 [id number] / / [id number] [employer]oph[employer]is [facility] Angio-Seal Vip Bondek-Plus 8fr .038in 70cm Hemostatic Latex Free 092414 - [id number] Implanted:Qty: 1 on 08/07/2023 by Mor Riley MD at [facility] [employer] 04/07/2024 [id number] / / [id number] Synthes Dhs/Dcp 174mm 38mm 10 Hole Hip Condyle 130d Standard Barrel Plate 281.010s - [id number] Implanted:Qty: 1 on 12/09/2023 by Homer Villalobos MD at [facility] Left: Femur [employer] [id number] 04/15/2029 281.010S / / [id number] Synthes 4.5mm 8mm 38mm Self Tap Large Hexagonal Socket Cortex Screw Bone 214.838 - [id number] Implanted:Qty: 1 on 12/09/2023 by Homer Villalobos MD at [facility] Left: Femur Synthes 214.838 / / Synthes Dhs Dcs 36mm Compression Hip Condylar Screw Bone Stainless Steel 280.990 - [id number] Implanted:Qty: 1 on 12/09/2023 by Homer Villalobos MD at [facility] Left: Femur Synthes 280.990 / / Synthes 1.7mm 750mm Crimp [employer]cl[employer] Orthopedic Stainless [employer] 298.801.01s - [id number] Implanted:Qty: 1 on 12/09/2023 by Homer Villalobos MD at [facility] Left: Femur [employer] [id number] 09/12/2028 298.801.01S / / [id number] Synthes Dhs Dcs 12mm 8mm 2.7mm 90mm 22mm Lag Cannulated Hip Condylar 280.290 - [id number] Implanted:Qty: 1 on 12/09/2023 by Homer Villalobos MD at [facility] Left: Femur [employer] 280.290 / / Procedures Procedure Name Priority Date/Time Associated Diagnosis Comments CARDIOLOGY DOCUMENT SCAN Routine 03/21/2024 12:27 PM CUE WORKER CARDIOLOGY DOCUMENT SCAN 03/19/2024 EGFR Routine 03/16/2024 8:20 PM CUE WORKER HEMOGLOBIN A1C Routine 12/09/2023 10:24 PM CDT LIPID PANEL STAT 08/07/2023 2:35 PM CDT ALBUMIN CREATININE RATIO, URINE Routine 02/23/2023 11:01 AM CUE WORKER Type 2 diabetes mellitus without complication, without long-term current use of insulin (HCC) HM DIABETES EYE EXAM Routine 12/10/2022 from Last 3 Months or Most Recently Relevant to Health Maintenance Results * Cardiology Document Scan (03/21/2024 12:27 PM CUE WORKER) Anatomical Region Laterality Modality Other us Magnolia Rico NP CV CARDIAC SERVICES PROCEDUR ES Final Result * Cardiology Document Scan (03/19/2024) Anatomical Region Laterality Modality Other us Cuba Larsen MD CV CARDIAC SERVICES PROCEDURE S Final Result * eGFR (03/16/2024 8:20 PM CUE WORKER) eGFR 70 >=60 mL/min/1. 73 m2 Comment: [...] last reviewed 2021. Blood 03/16/2024 8:20 PM CUE WORKER 03/16/2024 9:15 PM CUE WORKER Yves Bailey MD LAB BLOOD ORDERABLES Final R esult Performing Organization Address City/[facility] Co de Phone Number MINDI [address] Department [place] [address] * (ABNORMAL) Hemoglobin A1c (12/09/2023 10:24 PM CDT) Hgb A1C 6.5(H) 4.0 - 5.6 % Estimated Average Glucose 140 mg/dL [facility] Comment: The ADA recommends reporting an estimated [...] NP LAB BLOOD ORDERABLES F inal Result [facility] Department [place] [address] * (ABNORMAL) Lipid panel (08/07/2023 2:35 PM [...] revised on 2017. Triglycerides 145 <=149 mg/dL [facility] Comment: Interpretive Data Ages < or [...] revised on 2017. HDL 32(L) >=40 mg/dL [facility] Comment: Interpretive Data Ages < or [...] on 2017. LDL, calculated 33 <=129 mg/dL [facility] Comment: Interpretive Data Ages < or [...] revised on 2017. Non-HDL Cholesterol 62 mg/dL [facility] Comment: Interpretive Data Ages < or [...] last revised on 2017. Chol/HDL ratio 3 [facility] Blood 08/07/2023 2:35 PM CDT 08/07/2023 2:51 PM CDT us Parris Celestin NP LAB BLOOD ORDERABLES Sri davalos Result [facility] Department [place] [address] * Albumin Creatinine Ratio, Urine (02/23/2023 11:01 AM CUE WORKER) Creatinine, ur 94 20 - 275 mg/dL [...] diagnostic category. Urine 02/23/2023 11:0 1 AM CUE WORKER 02/23/2023 11:01 AM CUE WORKER us Cuba Larsen MD LAB URINE ORDERABLES Final Re sult [facility] Organization Address City/State/ZIP Co de Phone Number [facility] [address] [address] * DIABETES EYE EXAM (12/10/2022) us Historical Provider HEALTH MAINTENANCE Final Result from Last 3 Months or Most Recently Relevant to Health Maintenance Insurance [employer] [place] [id number] Advance Directives For more information, please contact: [phone] Documents on File Type Date Recorded Patient Site Head Expl anation ADVANCE DIRECTIVE 12/11/2023 12:06 PM NUHA R OF BRAILLE AND TALKING BOOKS CLERK-MEDICAL ADVANCE DIRECTIVE 10/27/2019 8:48 AM Power of Fur Matcher-Medical ADVANCE DIRECTIVE 10/27/2019 8:47 AM Power of Fur Matcher-Medical * LIMITED - No CPR (Latest Code [...] Elio Santana Health Care Agent Care Teams Industrial Spray Painter Relationship Specialty Start Date End Date Cuba Larsen MD PCP - General Family Medicine 01/23/22 Chris Mendes MD Referring Physician Cardiology 12/23/21 Keli Orozco, landfill attendant Failure Coordinator Transplant 04/15/23 Tami Mcknight landfill attendant Failure Coordinator Cardiology 09/14/23
--- OUTSIDE RECORDS SUMMARY | 2024-06-17 11:36 | XMS_ITS | Clinical Summary ---
Author Organization [facility] Address [facility] [place] [address] Care Team Providers Care Water Main Inspector Name Role Phone Ryann Galdamez PA-C Primary Care Provider [phone] Cathleen Walker MD Unavailable [phone] Allergies Active Allergy Reactions Criticality Noted Date [...] Status Comments Father (Age 79) in his [facility] Mother (Age 75) in her [facility] Son 1 Alive Son 2 of Covid-19 [...] Comments Blood Pressure 142/98 05/22/2021 8:00 PM FORENSIC LOCKSMITH Pulse 90 05/22/2021 8:00 PM FORENSIC LOCKSMITH Temperature 37.1 C (98.7 F) 05/22/2021 5:45 PM FORENSIC LOCKSMITH Respiratory Rate 17 05/22/2021 8:00 PM FORENSIC LOCKSMITH Oxygen Saturation 96% 05/22/2021 8:00 PM FORENSIC LOCKSMITH Inhaled Oxygen Concentration - - Weight 75.9 kg (167 lb 5.3 oz) 05/22/2021 1:59 P M FORENSIC LOCKSMITH Height 157.5 cm (5' 2 ) 05/22/2021 1:59 PM FORENSIC LOCKSMITH Body Mass Index 30.6 05/22/2021 1:59 PM FORENSIC LOCKSMITH Plan of Treatment Health Maintenance Due Date Last Done Comments Zoster Vaccines (1 of 2) 1991 Annual Medicare Wellness Visit 2006 Dexa Scan (General) 2006 Pneumococcal Vaccine: 65+ Years (1 of 1 - PCV) 2006 RSV Immunization or 60+ Years (1 - 1-dose 75+ series) 02/07/2016 COVID-19 Vaccine (4 - 2023-2 5 season) 2023 02/19/2021, 05/23/2020, 04/25/2020 DTaP, Tdap and Td Vaccines ( 2 - Td or Tdap) 05/20/2029 05/21/2019 Meningococcal B Vaccine Aged Out No l onger eligible based on patient's age to complete this topic Meningococcal Vaccine Aged Out No kamala kyleigh eligible based on patient's age to complete this topic RSV Immunizations Under 20 Months Aged Out No longer eligible b ased on patient's age to complete this topic Insurance [employer] Care Teams Water Main Inspector Relationship Specialty Start Date End Date Ryann Galdamez PA-C [address] [facility] [address] [place] [address] PCP - General PHYSICIAN CRYPTOLOGIC TECHNICIAN OPERATOR/ANALYST 05/13/21 Cathleen Walker MD [address] [address] INTERNAL MEDICINE 05/13/21
--- OUTSIDE RECORDS SUMMARY | 2024-06-17 11:36 | XMS_ITS | Encounter Summary ---
Author Organization [facility] Healthcare Address [address] [place] [address] Care Team Providers Care Mobile Disc Jockey Name Role Phone Chris Mendes MD Unavailable [phone] Cuba Larsen MD Primary Care Provider [phone] Keli Orozco RN Unavailable Unavailable Tami Mcknight RN Unavailable Unavailab le Encounter Details Date Type Department Care Team (Late st Contact Info) Description 03/19/2024 Orders Only [facility] [address] [place] [address] Cuba Larsen MD [facility] [address] Social History Tobacco Use Types [...] on file 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 Gender Identity Not on file Sexual Orientation Not on file documented as of this encounter Plan of Treatment Not on file documented as of this encounter Procedures Procedure Name Priority Date/Time Associated Diagnosis Comments CARDIOLOGY DOCUMENT SCAN 03/19/2024 documented in this encounter Results * Cardiology Document Scan (03/19/2024) Anatomical Region Laterality Modality Other us Cuba Larsen MD CV CARDIAC SERVICES PROCEDURE S Final Result documented in this encounter Visit Diagnoses Not on filedocumented in this encounter Care Teams Mobile Disc Jockey Relationship Specialty Start Date End Date Cuba Larsen MD PCP - General Family Medicine 01/23/22 Chris Mendes MD Referring Physician Cardiology 12/23/21 Keli Orozco, coal cutter Failure Coordinator Transplant 04/15/23 Tami Mcknight, coal cutter Failure Coordinator Cardiology 09/14/23 documented as of this encounter
--- OUTSIDE RECORDS SUMMARY | 2024-06-17 11:36 | XMS_ITS | Encounter Summary ---
Author Organization [facility] Healthcare Address [address] [place] [address] Care Team Providers Care Community Engagement Leader Name Role Phone Hermila Calhoun MD, Wilber Martinez Primary Care Provider Ryann Galdamez Primary Care Provider [phone] Ryann Galdamez Primary Care Provider [phone] Chris Mendes MD Unavailable [phone] Keli Orozco RN Unavailable Unavailable Alysa Newton RN Unavailable [phone] Cuba Larsen MD Primary Care Provider [phone] Keli Orozco RN Unavailable Unavailable Keli Orozco RN Unavailable Unavailable Tami Mcknight RN Unavailable Unavailab le Encounter Details Date Type Department Care Team (Late st Contact Info) Description 05/27/2019 Documentation [facility] Social Work [address] [place] [address] Dolores Ovalle LCSW Social History Tobacco Use Types Packs/Day Years Used Date Smoking Tobacco: Never Smokeless Tobacco: Never Alcohol Use Standard Drinks/Week Comments Yes 0 (1 standard drink = 0.6 oz pur e alcohol) 1/mo Comments No Sex and Gender Information Value Date Recorded Sex Assigned at Not on file 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 SW provided transfer hand off to floor SW. documented in this encounter Plan of Treatment Not on file documented as of this encounter Visit Diagnoses Not on filedocumented in this encounter Additional Health Concerns Infection Onset Date Last Indicated Resolved Time COVID19 Comment:IP Review - pt afebrile, without URI signs/symptoms. Aislinn Goldsmith, MOTOR COACH DRIVER 06/09/2019 06/09/2019 06/09/2019 4:20 PM C DT documented as of this encounter Care Teams Community Engagement Leader Relationship Specialty Start Date End Date Wilber Cleaning Jr., MD [address] [place] [address] PCP - General 07/03/16 07/15/20 Ryann Galdamez PA [address] [place] [address] PCP - General Waste Baler 07/16/20 04/01/21 Ryann Galdamez PA [address] [place] [address] PCP - General Waste Baler 04/02/21 01/22/22 Cuba Larsen MD [address] [address] PCP - General Family Medicine 01/23/22 Chris Mendes MD [address] [place] [address] Referring Physician Cardiology 12/23/21 Keli Orozco, factory lay out engineerLaborer Poultry Hatchery Cardiology 12/23/21 04/15/23 Alysa Newton, RN [address] [address] Laborer Poultry Hatchery Cardiology 12/23/21 Keli Orozco, swine nutritionist Failure Coordinator 04/02/23 4 Keli Orozco, swine nutritionist Failure Coordinator Transplant 04/15/23 Tami Mcknight swine nutritionist Failure Coordinator Cardiology 09/14/23 documented as of this encounter
--- OUTSIDE RECORDS SUMMARY | 2024-06-17 11:36 | XMS_ITS | Encounter Summary ---
Author Organization [facility] Healthcare Address [address] [place] [address] Care Team Providers Care Clinical Operations Leader Name Role Phone Chris Mendes MD Unavailable [phone] Cuba Larsen MD Primary Care Provider [phone] Keli Orozco RN Unavailable Unavailable Tami Mcknight RN Unavailable Unavailab le Encounter Details Date Type Department Care Team (Late st Contact Info) Description 04/07/2024 Telephone [facility] Medical Group Family Medicine at [address] [place] [address] Cuba Larsen MD [address] [place] [address] Social History Tobacco Use Types Packs/Day [...] on file 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 Gender Identity Not on file Sexual Orientation Not on file documented as of this encounter Plan of Treatment Not on file documented as of this encounter Visit Diagnoses Not on filedocumented in this encounter Care Teams Clinical Operations Leader Relationship Specialty Start Date End Date Cuba Larsen MD PCP - General Family Medicine 01/23/22 Chris Mendes MD Referring Physician Cardiology 12/23/21 Keli Orozco, set up mechanic crown assembly machine Failure Coordinator Transplant 04/15/23 Tami Mcknight, set up mechanic crown assembly machine Failure Coordinator Cardiology 09/14/23 documented as of this encounter
--- OUTSIDE RECORDS SUMMARY | 2024-06-17 11:37 | XMS_ITS ---
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
== END 2024-06-17 11:40 | disposition home or self-care (01) ==
PROVIDERS: Emergency Provider Nurse Practitioner Family
DX: R35.0 Frequency of micturition (principal); R39.15 Urgency of urination; I35.0 Nonrheumatic aortic (valve) stenosis; I05.2 Rheumatic mitral stenosis with insufficiency; E03.9 Hypothyroidism, unspecified; G47.33 Obstructive sleep apnea (adult) (pediatric); I48.20 Chronic atrial fibrillation, unspecified; K21.9 Gastro-esophageal reflux disease without esophagitis; E78.2 Mixed hyperlipidemia; E11.9 Type 2 diabetes mellitus without complications; Z79.84 Long term (current) use of oral hypoglycemic drugs; F41.1 Generalized anxiety disorder; Z86.711 Personal history of pulmonary embolism; Z86.73 Personal history of transient ischemic attack (TIA), and cerebral infarction without residual deficits; Z79.01 Long term (current) use of anticoagulants
CPT/HCPCS: 81003; 87086; 99213; G0463